=== PATIENT | male | born 1945 | race African-American/Black ===

== ENCOUNTER 2021-05-18 19:17 | Inpatient (IN) | payer BC, SELFPAY ==
--- NOTE | ~2021-05-18 | XR_ITS ---
XR chest 1V portable 06/02/2021 05:44 Indication: Respiratory failure Procedure: AP portable chest Comparison: Comparison to multiple prior studies sequentially, with oldest reviewed study dated 06/2021. Findings: Endotracheal tube tip 3.7 cm above the karol. Left IJ central line tip in the SVC. Stable opacities of the right lower and left mid and lower lung. Stable cardiomediastinal silhouette. No sig nificant effusion or pneumothorax. No acute osseous abnormality. Impression: 1: Stable bilateral opacities, consistent with pneumonia. Reviewed, dictated and finalized at location A. NURSE Impression: 1: Stable bilateral opacities, consistent with pneumonia.
--- NOTE | ~2021-05-18 | XR_ITS ---
EXAMINATION: XR chest 1V portable DATE: 06/08/2021 06:42 INDICATION: Acute respiratory failure TECHNIQUE: COMPARISON: Chest radiograph dated 06/07/2021 FINDINGS: Endotracheal tube tip 1.5 cm above the karol. Dobbhoff type nasoenteric feeding tube with weighted t ip in the proximal jejunum approximately 5 cm beyond the level of the ligament of Treitz. Left qa internship al jugular central venous catheter with distal tip at the superior cavoatrial junction. Persistent opacities in the left mid to lower lung zone. This likely includes a small left pleural ef fusion. Additional unchanged opacities at the medial right lower lung zone.. No pulmonary edema or pn eumothorax. The cardiomediastinal silhouette is normal. IMPRESSION: 1. Unchanged opacities in the left mid to lower and right lower lung zones which could represent or p neumonia or atelectasis, possibly with superimposed small left pleural effusion. Reviewed, dictated and finalized at location A. OCCUPATIONAL THERAPIST IMPRESSION: 1. Unchanged opacities in the left mid to lower and right lower lung zones whic h could represent or pneumonia or atelectasis, possibly with superimposed small left pleural effusion.
--- NOTE | ~2021-05-18 | CT_ITS ---
EXAMINATION: CT diagnostic chest wo con DATE: 05/25/2021 12:57 INDICATION: Pneumonia TECHNIQUE: Computed tomography (CT) of the chest was performed without intravenous contrast. The dose -length product was 201.04 mGy-cm. Automated exposure control and iterative reconstruction technique were employed. COMPARISON: Chest x-ray dated 05/21/2021 FINDINGS: No thoracic lymphadenopathy. There is atherosclerosis of the aorta and coronary arteries. B orderline heart size. No significant pleural or pericardial effusion. The upper abdomen is unremarkab le. There is patchy airspace consolidation involving all lobes, most confluent in the lower lobes, le ft greater than right, compatible with pneumonia. No endobronchial lesions. IMPRESSION: 1. Patchy bilateral airspace disease, compatible with pneumonia. Reviewed, dictated and finalized at location B. PING MACHINE OPERATOR
--- NOTE | ~2021-05-18 | XR_ITS ---
EXAMINATION: XR chest 1V portable DATE: 06/06/2021 05:49 INDICATION: Acute respiratory failure TECHNIQUE: frontal view of the chest was obtained. COMPARISON: Chest radiograph dated 06/05/2021 FINDINGS: Endotracheal tube tip 3.5 cm above the karol. Dobbhoff type nasoenteric feeding tube extends into th e stomach with distal tip near the gastric outlet. Left internal jugular central venous catheter with distal tip near the superior cavoatrial junction. Persistent streaky and patchy airspace opacities in the right lower and left mid and lower lung zones . No pneumothorax or definitive pleural effusion. The cardiomediastinal silhouette is normal. Calcifi ed mediastinal lymph nodes consistent with old granulomatous disease. IMPRESSION: 1. No change in bilateral basilar predominant lung disease consistent with pneumonia, atelectasis or some combination thereof. Reviewed, dictated and finalized at location A. TER AUTOMATIC IMPRESSION: 1. No change in bilateral basilar predominant lung disease consistent with pneu monia, atelectasis or some combination thereof.
--- NOTE | ~2021-05-18 | XR_ITS ---
EXAMINATION: XR chest 1V portable DATE: 06/07/2021 05:49 INDICATION: Acute respiratory failure TECHNIQUE: frontal view of the chest was obtained. COMPARISON: Chest radiograph dated 06/06/2021 FINDINGS: Endotracheal tube tip 3.5 cm above the karol. Dobbhoff type nasoenteric feeding tube with weighted t ip in the proximal jejunum approximately 5 cm beyond the level of the ligament of Treitz. Left graduate intern al jugular central venous catheter with distal tip at the superior cavoatrial junction. Persistent opacities in the bilateral lung zones, left greater than right. No pulmonary edema, pneumo thorax or definitive pleural effusion. The cardiomediastinal silhouette is normal. IMPRESSION: 1. Interval improvement in opacities in the bilateral lower lung zones, left greater than right which could represent pneumonia or atelectasis. Reviewed, dictated and finalized at location A. ER CUTTING OPERATOR IMPRESSION: 1. Interval improvement in opacities in the bilateral lower lung zones, left gr eater than right which could represent pneumonia or atelectasis.
--- NOTE | ~2021-05-18 | XR_ITS ---
EXAMINATION: XR chest 1V portable INDICATION: Acute respiratory failure TECHNIQUE: Portable AP chest at 0501 hours COMPARISON: 06/08/2021 FINDINGS: A left internal jugular central venous catheter ends with its tip at the superior cavoatria l junction. A Dobbhoff feeding tube is seen with its tip ending in the proximal jejunum. Airspace opa cities persist in the left mid and lower lung zones and right lung base with slight improvement. Ther e is no pleural effusion or pneumothorax. The cardiomediastinal silhouette is normal. IMPRESSION: 1. Improved airspace opacities of the left lung and right lung base, consistent with atelectasis vers us pneumonia. Reviewed, dictated and finalized at location A. RING MACHINE OPERATOR AUTOMATIC IMPRESSION: 1. Improved airspace opacities of the left lung and right lung base, consistent with atelectasis versus pneumonia.
--- NOTE | ~2021-05-18 | XR_ITS ---
EXAMINATION: XR chest 1V portable DATE: 06/10/2021 05:29 INDICATION: Acute respiratory failure. TECHNIQUE: A single frontal view of the chest was obtained. COMPARISON: Chest single view 06/09/2021, CT abdomen and pelvis 05/31/2021 FINDINGS: The patient is rotated to his left. There are airspace opacities in right lower lung zone a nd left mid and lower lung zones. No pleural effusion or pneumothorax. The heart size is normal. Calc ified left hilar lymph nodes are consistent with old granulomatous disease. A left internal jugular c entral venous catheter is seen with tip in the superior vena cava. IMPRESSION: 1. Stable airspace opacities in right lower lung zone and left mid and lower lung zones, consistent w ith pneumonia. Reviewed, dictated and finalized at location A. HEEL BUILDER IMPRESSION: 1. Stable airspace opacities in right lower lung zone and left mid and lower eliezer ng zones, consistent with pneumonia.
--- NOTE | ~2021-05-18 | XR_ITS ---
EXAMINATION: XR fl Dobhoff insert/rad w img DATE: 06/06/2021 11:47 INDICATION: Clogged Dobbhoff feeding tube. Placement of a new Dobbhoff feeding tube is requested. TECHNIQUE: A Dobbhoff type feeding tube was advanced into the duodenum utilizing intermittent fluoroscopy. Final image demonstrates the feeding tube in position with the weighted tip at the expected location of th e ligament of Treitz. Positioning within the duodenum was confirmed with injection of 50 mL of Omnipa que-350 contrast. The tube was flushed with 10 mL sterile saline and fixed to the nares with adhesive tape. The previously placed clotted tube was removed. 2 fluoroscopic images were recorded. The amoun t of fluoroscopy time used during this procedure was 6.4 minutes. There were no immediate complicatio ns. FINDINGS/IMPRESSION: Successful fluoroscopy-guided Dobbhoff feeding tube placement with distal tip in the fourth portion o f the duodenum. Reviewed, dictated and finalized at location A. [place] SALES VITAMIN CONSULTANT
--- NOTE | ~2021-05-18 | XR_ITS ---
EXAMINATION: XR chest 1V portable EXAM DATE: 05/28/2021 16:58 INDICATION: SOB CXR COVID. TECHNIQUE: Portable AP frontal chest x-ray was obtained. Comparison is made to prior examination from 05/21/2021. FINDINGS: Moderate amount of ill-defined bilateral airspace disease, appearance consistent with COVID pneumonia. There is no significant interval change. No pneumothorax . Possible small pleural effusio ns. IMPRESSION: Moderate amount of COVID pneumonia unchanged. Reviewed, dictated and finalized at location G. ANALYST REPORT WRITER
--- NOTE | ~2021-05-18 | XR_ITS ---
EXAMINATION: XR chest ET placement DATE: 05/31/2021 12:50 INDICATION: Intubation. TECHNIQUE: A single frontal view of the chest was obtained. COMPARISON: Chest single view 05/31/2021 at 7:[address] abdomen and pelvis 05/31/2021 FINDINGS: The patient is rotated to his left. There are airspace opacities in right mid and lower dang g zones and all left lung zones with a peripheral predominance. No pleural effusion or pneumothorax. The heart size is normal. The endotracheal tube tip is 4.1 cm above the karol. IMPRESSION: 1. Stable multifocal lung disease, left worse than right, consistent with pneumonia. Reviewed, dictated and finalized at location E. LE SAW OPERATOR IMPRESSION: 1. Stable multifocal lung disease, left worse than right, consistent with pneum onia.
--- NOTE | ~2021-05-18 | XR_ITS ---
EXAMINATION: XR chest port-a-cath/central DATE: 06/01/2021 10:31 INDICATION: Central line placement TECHNIQUE: frontal view of the chest was obtained. COMPARISON: Chest radiograph dated 06/01/2021 FINDINGS: Endotracheal tube tip 3.1 cm above the karol. Left internal jugular central venous catheter with dis gamal tip near the superior cavoatrial junction. Persistent opacities throughout the left mid to lower and right lower lung zones without significant interval change consistent with pneumonia. No pleural effusion or pneumothorax. The cardiomediastinal silhouette is normal. IMPRESSION: 1. Unchanged opacities in the right lower and left mid to lower lung zones consistent with pneumonia. Reviewed, dictated and finalized at location A. OUT WORKER IMPRESSION: 1. Unchanged opacities in the right lower and left mid to lower lung zones cons istent with pneumonia.
--- NOTE | ~2021-05-18 | CT_ITS ---
EXAMINATION: CT brain wo con DATE: 05/30/2021 15:37 INDICATION: Mental status change TECHNIQUE: Computed tomography (CT) of the head was performed without intravenous contrast. Sagittal and coronal reconstructions were performed. The mA was adjusted according to patient size. Iterative reconstruction technique was employed. The dose-length product was 605.33 mGy-cm. COMPARISON: head CT dated 05/18/2021 FINDINGS: No acute intracranial hemorrhage, acute infarction or abnormal extra axial fluid collection. Again se en are small old lacunar infarcts at the heads of the bilateral caudate nuclei. Additional unchanged small old infarct at the left cerebellar hemisphere. There is mild to moderate scattered white matter hypoattenuation consistent with chronic small vessel ischemic disease. Symmetric prominence of the sulci and ventricles consistent with mild to moderate age-appropriate diffuse cerebral volume loss. N o mass/mass effect. Mild scattered mucosal thickening the paranasal sinuses. The orbits, paranasal si nuses and mastoid air cells are normal. 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 IMPRESSION: 1. No acute intracranial process. 2. 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 3. Age-related changes including mild to moderate diffuse volume loss and mild to moderate scattered white matter hypoattenuation consistent with chronic small vessel ischemic disease. Reviewed, dictated and finalized at location A. ANICAL FITTER IMPRESSION: 1. No acute intracranial process. 2. 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 3. Age-related changes including mild to moderate diffuse volume loss and mild to moderate scattered white matter hypoattenuation consistent with chronic smal l vessel ischemic disease.
--- NOTE | ~2021-05-18 | XR_ITS ---
EXAMINATION: XR chest 1V portable DATE: 05/31/2021 08:06 INDICATION: Fluid overload. TECHNIQUE: A single frontal view of the chest was obtained. COMPARISON: Chest single view 05/28/2021, chest CT 05/25/2021 FINDINGS: There are airspace opacities in right mid and lower lung zones and all left lung zones. No pleural effusion or pneumothorax. The heart size is normal. IMPRESSION: 1. Stable multifocal lung disease, left worse than right, consistent with pneumonia. Reviewed, dictated and finalized at location E. RATOR HAND IMPRESSION: 1. Stable multifocal lung disease, left worse than right, consistent with pneum onia.
--- NOTE | ~2021-05-18 | XR_ITS ---
EXAMINATION: XR chest 1V portable INDICATION: Choking episode, possible aspiration TECHNIQUE: Portable AP chest at 1749 hours COMPARISON: 05/18/2021 FINDINGS: Left-sided airspace opacities persist without significant change. Right basilar airspace op acities have slightly increased. No definite pleural effusion or pneumothorax is identified. The card iomediastinal silhouette is normal. IMPRESSION: 1. Stable left-sided airspace opacities and mildly increased right basilar airspace opacity, likely p neumonia. Reviewed, dictated and finalized at location F. WARE DESIGN ENGINEER IMPRESSION: 1. Stable left-sided airspace opacities and mildly increased right basilar airs pace opacity, likely pneumonia.
--- NOTE | ~2021-05-18 | XR_ITS ---
EXAMINATION: XR chest 1V INDICATION: Shortness of breath and cough, COVID 19 positive TECHNIQUE: AP view of the chest is obtained. COMPARISON: None available FINDINGS: There are patchy airspace opacities throughout the left lung and in the right lung base. No pleural effusion or pneumothorax is identified. The cardiomediastinal silhouette is normal. IMPRESSION: 1. Airspace opacities throughout the left lung and in the right lung base, likely COVID 19 pneumonia. Reviewed, dictated and finalized at location F. PURSE FRAMER IMPRESSION: 1. Airspace opacities throughout the left lung and in the right lung base, like ly COVID 19 pneumonia.
--- NOTE | ~2021-05-18 | XR_ITS ---
XR fl Dobhoff insert/rad w img INDICATION: Insertion of Dobbhoff tube TECHNIQUE: Fluoroscopy performed for Dobbhoff tube placement . Fluoroscopy time of 4 minutes. One flu oroscopic image. COMPARISON: No prior studies for comparison. FINDINGS: Dobbhoff tube tip in the stomach. Visualized bowel gas pattern is nonspecific. IMPRESSION: 1: Dobbhoff tube tip in the stomach. Reviewed, dictated and finalized at location A. IL SUPPORT SPECIALIST
--- NOTE | ~2021-05-18 | CT_ITS ---
EXAMINATION: CT abdomen pelvis wo con DATE: 05/31/2021 09:09 INDICATION: Possible bleeding TECHNIQUE: Computed tomography (CT) of the abdomen and pelvis was performed without intravenous contr ast. Automated exposure control and iterative reconstruction technique were employed. The dose-length product was 469.34 mGy-cm. COMPARISON: None FINDINGS: Patchy airspace disease in the bilateral lower lobes. Heart size is normal. No pericardial or pleural effusion. Liver, gallbladder, spleen, pancreas, bilateral adrenal glands and kidneys are normal. Lar ge amount of stool throughout the colon with 7 cm ball of stool at the rectum consistent with constip ation and possible fecal impaction. Normal appendix. Multiple gas and fluid-filled but not frankly di lated loops of small bowel without a discrete transition point to suggest obstruction which suggests an ileus. Patel catheter within the decompressed bladder. No free intraperitoneal gas or fluid. No ev ident retroperitoneal or body wall hematomas. No pathologically enlarged abdominal or pelvic lymphade nopathy. Prominent Schmorl's nodes at the superior endplate of L2 and at both sides of the L3-L4 disc space. Mild lumbar levocurvature. Mild to moderate thoracolumbar spondylosis. Left total hip arthrop lasty with a fixation screw in the acetabular component extending beyond the medial wall of the ileum into the left iliac is muscle. IMPRESSION: 1. Patchy airspace disease in the bilateral lower lobes which could represent aspiration, pneumonia o r pulmonary edema. 2. Large amount of stool throughout the colon was 7 cm ball of stool at rectum consistent with consti pation and fecal impaction. 3. Multiple gas and fluid-filled loops of small bowel which are not frankly dilated and with no discr ete transition point which would favor an ileus over obstruction. Reviewed, dictated and finalized at location A. FOLLOWER IMPRESSION: 1. Patchy airspace disease in the bilateral lower lobes which could represent a spiration, pneumonia or pulmonary edema. 2. Large amount of stool throughout the colon was 7 cm ball of stool at rectum consistent with constipation and fecal impaction. 3. Multiple gas and fluid-filled loops of small bowel which are not frankly dil ated and with no discrete transition point which would favor an ileus over obst ruction.
--- NOTE | ~2021-05-18 | XR_ITS ---
EXAMINATION: XR chest 1V portable DATE: 06/05/2021 05:44 INDICATION: Respiratory failure TECHNIQUE: frontal view of the chest was obtained. COMPARISON: Chest radiograph dated 06/04/2021 FINDINGS: Dobbhoff type nasoenteric feeding tube extends into the stomach with distal tip collimated beyond the inferior margin of the [id number]. Left internal jugular central venous catheter with distal tip at the caudal superior vena cava. Slight improvement in the bilateral lung disease with residual opacities at the right lung base and l eft mid to lower lung zone. No pleural effusion or pneumothorax. The cardiomediastinal silhouette is normal. Calcified mediastinal lymph nodes consistent with old granulomatous disease. IMPRESSION: 1. Decreasing bilateral lung disease consistent with improving pneumonia. Reviewed, dictated and finalized at location A. KER DUMP GROUNDS
--- NOTE | ~2021-05-18 | XR_ITS ---
XR chest 1V portable 06/03/2021 06:14 Indication: Respiratory failure Procedure: AP portable chest Comparison: Comparison to multiple prior studies sequentially, with oldest reviewed study dated 06/2021. Findings: There is an endotracheal tube tip 3 cm above the karol. Feeding tube in the stomach. Centr al line tip near the cavoatrial junction. There is patchy bilateral airspace disease. Small left pleu ral effusion. No pneumothorax. No acute osseous abnormality. Impression: 1: Stable patchy bilateral airspace disease, consistent with pneumonia. Reviewed, dictated and finalized at location A. ERMAN Impression: 1: Stable patchy bilateral airspace disease, consistent with pneumonia.
--- NOTE | ~2021-05-18 | XR_ITS ---
EXAMINATION: XR chest 1V portable DATE: 06/04/2021 06:25 INDICATION: Respiratory failure TECHNIQUE: frontal view of the chest was obtained. COMPARISON: Chest radiograph dated 06/03/2021 FINDINGS: Endotracheal tube tip 3.2 cm above the karol. Weighted tip of a Dobbhoff type nasoenteric feeding tu be in the body of the stomach. Left internal jugular central venous catheter with distal tip near the superior cavoatrial junction. No significant change in diffuse airspace opacities throughout the left lung sparing the apex and mor e subtly scattered in the right lung. No pneumothorax. Possible small left pleural effusion. Heart si ze is normal. IMPRESSION: 1. Stable patchy bilateral lung disease, left greater than right consistent with pneumonia. Reviewed, dictated and finalized at location A. NELL OPERATOR IMPRESSION: 1. Stable patchy bilateral lung disease, left greater than right consistent wit h pneumonia.
--- NOTE | ~2021-05-18 | XR_ITS ---
EXAMINATION: XR chest 1V portable DATE: 06/01/2021 06:11 INDICATION: Respiratory failure. TECHNIQUE: A single frontal view of the chest was obtained. COMPARISON: Chest single view 05/31/2021, CT abdomen and pelvis 05/31/2021 FINDINGS: There are airspace opacities in right lower lung zone and all left lung zones. No pleural e ffusion or pneumothorax. The heart size is normal. The endotracheal tube tip is 2.8 cm above the joe na. IMPRESSION: 1. Stable airspace opacities in right lower lung zone and in all left lung zones, consistent with pne umonia. Reviewed, dictated and finalized at location E. E GROWER IMPRESSION: 1. Stable airspace opacities in right lower lung zone and in all left lung zone s, consistent with pneumonia.
--- NOTE | ~2021-05-18 | CT_ITS ---
EXAMINATION: CT brain wo con INDICATION: Altered mental status COMPARISON: None TECHNIQUE: Standard unenhanced head CT. The dose-length product (DLP) was 605.33 mGy-cm. The mA was a djusted according to patient size. Iterative reconstruction technique was employed. FINDINGS: There is no acute intraparenchymal hemorrhage. No evidence of mass lesion. No evidence of a cute infarction. 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 There is mild periventricular and subcortical hypodensity probably related to small vessel ischemic disease. There is mild prominence of the sulci and ventricles related to cerebral atrophy. Intracran ial calcified cerebral atherosclerosis is noted. There are no extra-axial collections. There is no ma ss effect or midline shift. The orbits and soft tissues are unremarkable. There is mild mucosal thick ening of the paranasal sinuses. There is fibrous union of the anterior and posterior C1 ring. IMPRESSION: 1. Areas of prior infarction without acute intracranial abnormality. 2. Age related findings. Reviewed, dictated and finalized at location F. ER TRIMMER
--- NOTE | ~2021-05-18 | XR_ITS ---
EXAMINATION: XR fl Dobhoff insert/rad w img DATE: 06/11/2021 14:31 INDICATION: Acute respiratory failure. TECHNIQUE: I placed a nasoenteric tube under fluoroscopic guidance. The number of images was 1. Fluor oscopy exposure time was 1.2 minutes. COMPARISON: None. FINDINGS: The nasoenteric tube tip is in the stomach. IMPRESSION: 1. Fluoroscopy guided nasoenteric tube placement with tip in the stomach. Reviewed, dictated and finalized at location A. F TECHNICIAN HELPER
--- NOTE | ~2021-05-18 | XR_ITS ---
EXAMINATION: XR abdomen NG/feed tube insert DATE: 06/11/2021 18:30 INDICATION: Nasogastric tube placement TECHNIQUE: A supine view of the abdomen and lower chest was obtained for evaluation of feeding tube placement. COMPARISON: 06/11/2021 at 2:26 PM FINDINGS: The Dobbhoff type enteric feeding tube is no longer visualized in the abdomen or mid and lower chest. No dilated loops of gas-filled bowel to suggest obstruction. Opacities at the bilateral lung bases w hich could represent atelectasis, pneumonia or pulmonary edema. Heart size is normal. Left total hip arthroplasty. IMPRESSION: 1. No feeding tube visualized in the abdomen or mid to lower chest. Reviewed, dictated and finalized at location A. S NEGOTIATOR
--- NOTE | ~2021-05-18 | XR_ITS ---
EXAMINATION: XR chest 1V portable EXAM DATE: 05/21/2021 06:05 INDICATION: Pneumonia. TECHNIQUE: Portable AP frontal chest x-ray was obtained. Comparison is made to prior examination from 05/20/2021, 05/18. FINDINGS: Moderate amount of left greater than right ill-defined acute airspace disease, pneumonia an d/or edema. Mild progression compared to prior 2 studies. Cardiomediastinal silhouette is normal. The re is no pneumothorax suspected. There are no pleural effusions. There are mild bony degenerative paul nges. IMPRESSION: 1. Moderate bilateral pneumonia or edema, mild progression. Reviewed, dictated and finalized at location A. GLUE MACHINE TENDER
--- NOTE | ~2021-05-18 | XR_ITS ---
EXAMINATION: XR fl Dobhoff insert/rad w img DATE: 06/11/2021 11:42 INDICATION: Respiratory failure. TECHNIQUE: I inserted a nasoenteric tube under fluoroscopic guidance. One image was obtained. The flu oroscopy exposure time was 0.6 minutes. COMPARISON: None. FINDINGS: The fluoroscopy image demonstrates the nasoenteric tube tip in the stomach. IMPRESSION: 1. Fluoroscopy guided nasoenteric tube placement with tip in the stomach. Reviewed, dictated and finalized at location A. URCE TEACHER
[2021-05-18 19:16] VITALS: BP 175/70; PULSE 93; RESP 22; TEMP 36.3; O2SAT 98
--- NOTE | 2021-05-18 19:30 | ECG_ITS ---
Measurements Intervals [place] Rate: 98 P: KS: 0 QRS: 26 QRSD: 82 T: 53 QT: 378 QTc: 485 Interpretive Statements WANDERING PACEMAKER ATRIAL PREMATURE COMPLEXES VOLTAGE CRITERIA FOR LVH BASELINE ARTIFACT- I, III, AVR, AVL, AVF, V2 ABNORMAL ECG Electronically Signed On 05-18-2021 20:06:48 APPEALS REVIEWER VETERAN by Winston Montemayor D.O.
[2021-05-18 19:31] VITALS: O2SAT 96
--- NOTE | 2021-05-18 19:52 | ED.SOB ---
HPI - SOB/Dyspnea General Chief Complaint: Shortness of Breath/Dyspnea Stated Complaint: COVID + WITH PNA, DIALYSIS SOB 84 [facility]LOW Time Seen by Provider: 05/18/21 19:25 Source: RN notes reviewed History of Present Illness HPI Narrative: Patient presents emergency department from dialysis clinic for shortness of breath.. Per EMS the patient had O2 saturations of 86 to 89% on room air history of history of dementia and is poor historian the patient is COVID-positive states he does not normally wear oxygen during the day patient had just been at [facility] and had signed out AGAINST MEDICAL ADVICE patient currently denies any chest pain abdominal pain nausea or vomiting states he is normal normal dialysis patient. Per EMS the patient received his full dialysis treatment today Related Data Home Medications Medication Instructions Recorded Confirmed allopurinol 100 mg PO HS 05/18/21 amlodipine 5 mg PO DAILY 05/18/21 apixaban [Eliquis] 2.5 mg PO BID 05/18/21 atorvastatin 20 mg PO HS 05/18/21 furosemide 80 mg PO BID 05/18/21 hydrocodone-acetaminophen 1 tablet PO Q6H PRN 05/18/21 lisinopril 5 mg PO DAILY 05/18/21 ropinirole 0.5 mg PO HS 05/18/21 sevelamer carbonate 800 mg PO TID 05/18/21 tamsulosin 0.4 mg PO HS 05/18/21 Allergies Allergy/AdvReac Type Severity Reaction Status Date / Time No Known Allergies Allergy Verified 05/18/21 21:05 Review of Systems Review of Systems: Gen.: Denies fevers or chills positive COVID ENT: Denies congestion Respiratory: See HPI CV: Denies chest pain or palpitations GI: Denies abdominal pain nausea, emesis or diarrhea Musculoskeletal: Denies back pain or muscle pain Neuro: Denies numbness, tingling, weakness or focal weakness Skin: Denies rash Except as documented, all other systems reviewed and negative [facility] Past Medical History Medical History (Updated 05/18/21 @ 21:29 by Delmer Moody DO) Chronic renal failure Social History Social History (Updated 05/18/21 @ 21:27 by Delmer Moody DO) Smoking status: Never smoker Exam Narrative: APPEARANCE: No acute distress, nontoxic, resting in bed EYES: EOMI HEENT: Normocephalic, atraumatic, OMM RESPIRATORY: No respiratory distress coarse breath sounds at the bilateral lung dooley CARDIOVASCULAR: Irregular irregular without murmurs rubs or gallops. ABDOMINAL: Soft, nontender, nondistended, no rebound or guarding MUSCULOSKELETAl: Moves all extremities. No clubbing, cyanosis or edema. NEURO: Awake and alert. Following commands, speech normal, no focal deficits SKIN:: Warm, dry. No rashes lesions or abrasions PSYCHIATRIC: Normal affect/mood, Course Course Emergency Course: Patient's power of managing attorney is present as well as a obtain records from [facility] The patient gone to [facility] on 15 May at that time he had been found to have COVID-19 with pneumonia he received initial dose of Rocephin and azithromycin but did not receive any further of these medications. At that time the patient need to be admitted he cannot get dialysis at [facility] they initially tried to transport the patient to [facility] however they did not have beds and the patient was accepted at [facility] power of managing attorney did not want the patient to be transferred to [place] and ultimately had signed the patient out of the emergency department today where he is being held to take him to dialysis at dialysis the patient become short of breath and came to the ER. Patient does wear oxygen as needed in the evenings but not during the day he did have a positive COVID test at [facility] Per records the patient last received his Cardizem last night there is no records of him receiving his apixaban which I will give here he did receive Decadron 2 days ago he did not receive any further antibiotics since May [address] Javed presentation work-up agrees with admission request patient receive his Cardizem and a
[2021-05-18 20:12] LABS: Basophils Percent Auto 0.2 % (0.2-1.2); Eosinophils Percent Auto 0.1 % (0-4.4); Hematocrit 32.2 % (42.0-52.0); Hemoglobin 10.3 g/dL (14.0-18.0); Immature Granulocyte Absolute 0.68 K/mm3 (0.00-0.031); Immature Granulocyte Percent A 4.5 % (0-0.5); Lymphocytes Absolute Auto 0.65 K/mm3 (0.9-3.2); Lymphocytes Percent Auto 4.3 % (18.3-44.2); Mean Corpuscular Hemoglobin 32.5 pg (26-34); Mean Corpuscular Volume 101.6 fl (80-100); Mean Platelet Volume 9.3 fl (7.4-10.4); Monocytes Absolute Auto 0.5 K/mm3 (0.1-0.6); Neutrophils Absolute Auto 13.2 K/mm3 (1.3-6.7); Neutrophils Percent Auto 87.9 % (45.5-73.1); Platelet Count Result 253 k/mm3 (150-375); Red Blood Count 3.17 M/mm3 (4.6-6.20)
[2021-05-18 20:22] LABS: INR 1.1; Partial Thromboplastin Time 29.1 SECONDS (22.3-36.8); Prothrombin Time 14.5 Seconds (11.1-14.7)
[2021-05-18 20:24] LABS: Alanine Aminotransferase 20 U/L (4-50); Albumin Level 4.3 g/dL (3.5-5.1); Alkaline Phosphatase 70 U/L (38-126); Anion Gap 13 mmol/L (8-16); Aspartate Amino Transferase 52 U/L (17-59); Bilirubin,Total 0.9 mg/dL (0.2-1.3); Blood Urea Nitrogen 36 mg/dL (9-20); Calcium 9.3 mg/dL (8.4-10.2); Carbon Dioxide 34 mmol/L (22-30); Chloride 94 mmol/L (98-107); Estimated CRCL calculation 10 ml/min; Estimated Glomerular Filt Rate 13; Glucose 114 mg/dL (65-110); Sodium 141 mmol/L (137-145)
[2021-05-18 20:27] LABS: Ovalocytes 1+ (NORMAL); Platelet Estimate Adequate (Adequate)
[2021-05-18 20:47] VITALS: BP 185/64; PULSE 87; RESP 18; O2SAT 97
[2021-05-18 20:48] LABS: CRP 23.9 mg/dL (<1.0); Lactate Dehydrogenase 1006 U/L (313-618)
--- NOTE | 2021-05-18 20:59 | PM.IMHP ---
H&P: HPI History of Present Illness Date/Time: 05/18/21 20:59 Chief Complaint: Shortness of breath Narrative: This is a 75-year-old male with past medical history significant for end-stage renal disease on hemodialysis, hypertension, dementia, on chronic anticoagulation. Patient was brought to the emergency room from hemodialysis clinic due to shortness of breath. Patient is unable to give any history. In emergency room preliminary workup was significant for chest x-ray significant for diffuse bilateral lung infiltrates. Patient was saturating in the mid 80's I was placed on supplemental oxygen. Tested positive for COVID-19. History has been obtained upon reviewing medical records and discussion with emergency room doctor. Decision has been made to admit the patient for further evaluation, management and treatment. Review of Systems Review of Systems: ROS unobtainable: Yes unobtainable due to mental status (Delirious) PMFSH Past Medical History Medical History (Updated 05/19/21 @ 02:04 by Lew Estrada MD) Chronic renal failure Social History Social History (Updated 05/18/21 @ 21:27 by Delmer Moody DO) Smoking status: Never smoker Meds Home Medications and Allergies Home Medications Medication Instructions Recorded Confirmed Type allopurinol 100 mg PO HS 05/18/21 History amlodipine 5 mg PO DAILY 05/18/21 History apixaban [Eliquis] 2.5 mg PO BID 05/18/21 History atorvastatin 20 mg PO HS 05/18/21 History furosemide 80 mg PO BID 05/18/21 History hydrocodone-acetaminophen 1 tablet PO Q6H PRN 05/18/21 History lisinopril 5 mg PO DAILY 05/18/21 History ropinirole 0.5 mg PO HS 05/18/21 History sevelamer carbonate 800 mg PO TID 05/18/21 History tamsulosin 0.4 mg PO HS 05/18/21 History Allergies Allergy/AdvReac Type Severity Reaction Status Date / Time No Known Allergies Allergy Verified 05/18/21 21:05 Vital Signs Vital Signs - 24 hr 05/18/21 19:16 05/18/21 19:31 05/18/21 20:47 Temperature 97.4 F L Pulse Rate 93 87 Respiratory Rate 22 H 18 Blood Pressure 175/70 H 185/64 H Pulse Oximetry 98 96 97 Exam Narrative: Laying in gurney Const: General: comfortable, no acute distress, well developed, alert, awake, ill appearing chronically and other (Delirious) Nutritional Appearance: average body habitus Orientation/consciousness: patient oriented x3 HENMT: Head: normal to inspection, normocephalic and atraumatic Ears: hearing grossly normal bilaterally General nose exam: Normal external nose present Face and sinus: normal facial exam Mouth: Yes Normal oral and palatal mucosa present Eyes: General: appearance normal, both eyes and all related structures Alignment and Position: alignment normal Sclera: sclerae normal Pupils: Equal, round and reactive pupils present EOM: EOMs intact bilaterally Neck: Neck: normal visual inspection, full ROM, no lymphadenopathy, supple and no JVD Thyroid: thyroid normal Lymphatic: no lymphadenopathy noted Resp: Effort & Inspection: normal respiratory effort and able to speak in complete sentences Auscultation: clear to auscultation bilaterally, no crackles, no rales, no rhonchi and no wheezes Cardio: Jugular venous distension: no JVD Rate: regular rate Rhythm: regular rhythm Heart sounds: S1 normal heart sound present and S2 normal heart sound present GI: Inspection: normal to inspection GI Palp: Yes Soft to palpation, No Tenderness to palpation present (GI), No Guarding due to palpation present (GI), Yes No hepatosplenomegaly present and No Rebound tenderness present : General: Yes deferred Skin: Rashes: no rashes Wounds: no wounds Neuro: General: oriented to person and CN's II-XI intact bilaterally Cranial nerves: Yes CN's II-XII intact bilaterally and Yes Equal, round and reactive pupils present Cognition (Neuro): abnormal cognition (Delirious) Speech: normal speech Gait exam (Neuro): Unable to assess gait Motor exam (neuro
[2021-05-18] MEDS: ALBUTEROL SULFATE (*SP) INHALER 1 PUFF (21:33)
[2021-05-18] MEDS: APIXABAN 2.5 MG TABLET PO (21:34)
[2021-05-18 21:35] VITALS: BP 181/94; PULSE 97; RESP 19; O2SAT 99
[2021-05-18 22:59] VITALS: BP 176/77; PULSE 104; RESP 20; O2SAT 96
[2021-05-18 23:45] VITALS: BP 185/69; PULSE 87; RESP 19; TEMP 36.8; O2SAT 98
[2021-05-19] VITALS (9 sets, daily range): BP systolic 121–142; BP diastolic 49–68; PULSE 61–93; RESP 14–20; TEMP 36–36.6; O2SAT 95–100; BMI 25.1
--- NOTE | 2021-05-19 03:24 | PC.NURSE ---
This patient, Jules Mitchell, was admitted to [facility] Room 331-01. Patient/family oriented to hospital policies and general routines including ID bracelet, bed and alarms, visiting hours, pain management, procedures, bathroom and other care routines, personal items, smoking policy, room service/diet, and visiting hours. Information on how to activate the Rapid Response Team has been discussed. Patient/Family are encouraged to report perceived risks to care and to ask questions if they do not understand what they are told or what they should do.
[2021-05-19 06:48] LABS: Basophils Percent Auto 0.2 % (0.2-1.2); Hematocrit 28.1 % (42.0-52.0); Hemoglobin 9.1 g/dL (14.0-18.0); Lymphocytes Absolute Auto 0.51 K/mm3 (0.9-3.2); Lymphocytes Percent Auto 5.1 % (18.3-44.2); Mean Corpuscular HGB Conc 32.4 g/dl (32-36); Mean Corpuscular Hemoglobin 32.7 pg (26-34); Mean Corpuscular Volume 101.1 fl (80-100); Mean Platelet Volume 9.7 fl (7.4-10.4); Monocytes Absolute Auto 0.2 K/mm3 (0.1-0.6); Neutrophils Absolute Auto 8.9 K/mm3 (1.3-6.7); Neutrophils Percent Auto 88.7 % (45.5-73.1); Platelet Count Result 231 k/mm3 (150-375); Red Blood Count 2.78 M/mm3 (4.6-6.20); Red Cell Distribution Width 14.2 % (11.5-14.5)
[2021-05-19 07:28] LABS: Alanine Aminotransferase 17 U/L (4-50); Albumin Level 3.5 g/dL (3.5-5.1); Alkaline Phosphatase 50 U/L (38-126); Anion Gap 10 mmol/L (8-16); Aspartate Amino Transferase 36 U/L (17-59); Bilirubin,Total 0.7 mg/dL (0.2-1.3); Blood Urea Nitrogen 51 mg/dL (9-20); Calcium 8.3 mg/dL (8.4-10.2); Carbon Dioxide 30 mmol/L (22-30); Chloride 94 mmol/L (98-107); Estimated CRCL calculation 8 ml/min; Estimated Glomerular Filt Rate 12; Glucose 208 mg/dL (65-110); Potassium 4.5 mmol/L (3.4-5.0); Sodium 134 mmol/L (137-145)
[2021-05-19] MEDS: amLODIPine BESYLATE 5 MG TABLET PO (08:14)
[2021-05-19] MEDS: FUROSEMIDE 80 MG TABLET PO ×2 (08:14→16:02)
[2021-05-19] MEDS: SEVELAMER CARBONATE 800 MG TABLET PO ×3 (08:14→16:02)
[2021-05-19] MEDS: APIXABAN 2.5 MG TABLET PO ×2 (08:14→16:02)
[2021-05-19] MEDS: lisinopriL 5 MG TABLET PO (08:14)
[2021-05-19] MEDS: ALBUTEROL SULFATE (*SP) AEROSOL 1 PUFF 2 PUFF INHALATION ×3 (08:56→21:36)
--- NOTE | 2021-05-19 11:25 | PM.IMPN ---
Progress Note: A&P Assessment and Plan (1) Acute respiratory failure with hypoxia: Code(s): J96.01 - Acute respiratory failure with hypoxia Status: Acute Assessment and Plan: Likely secondary to pneumonia Patient placed on supplemental oxygen Continuous pulse ox Trend give oxygen saturation 94% 05/19/2021 Interval history: patient with shortness of breath multifactorial with a healthcare associated pneumonia being treated with cefepime, vancomycin and azithromycin, as well as patient is positive for COVID patient is being treated with dexamethasone, patient remains somnolent unable to provide detailed review of symptom, will continue present management, will have a PT OT evaluate the patient further recommendation to follow. (2) Multilobar lung infiltrate: Code(s): R91.8 - Other nonspecific abnormal finding of lung field Status: Acute Assessment and Plan: Started on cefepime and vanco and Zithromax as patient has been recently to the hospital as well as has undergone hemodialysis. Blood cultures in progress (3) Pneumonia due to COVID-19 virus: Code(s): U07.1 - COVID-19; J12.82 - Pneumonia due to coronavirus disease 2018 Status: Acute Assessment and Plan: Supportive care (4) End-stage renal disease on hemodialysis: Code(s): N18.6 - End stage renal disease; Z99.2 - Dependence on renal dialysis Status: Acute Assessment and Plan: Continue hemodialysis as needed Nephrology consult Subjective Date/time seen: 05/19/21 11:25 HPI: This is a 75-year-old male with past medical history significant for end-stage renal disease on hemodialysis, hypertension, dementia, on chronic anticoagulation. Patient was brought to the emergency room from hemodialysis clinic due to shortness of breath. Patient is unable to give any history. In emergency room preliminary workup was significant for chest x-ray significant for diffuse bilateral lung infiltrates. Patient was saturating in the mid 80's I was placed on supplemental oxygen. Tested positive for COVID-19. History has been obtained upon reviewing medical records and discussion with emergency room doctor. Decision has been made to admit the patient for further evaluation, management and treatment. 05/19/2021 Interval history: patient with shortness of breath multifactorial with a healthcare associated pneumonia being treated with cefepime, vancomycin and azithromycin, as well as patient is positive for COVID patient is being treated with dexamethasone, patient remains somnolent unable to provide detailed review of symptom, will continue present management, will have a PT OT evaluate the patient further recommendation to follow. Review of Systems Review of Systems: ROS unobtainable: Yes unobtainable due to mental status (Delirious) Exam Narrative: Patient is comfortable, NAD, appears chronically ill HEENT: eyes are clear and none icteric LUNGS: normal respiratory effort ABD: not distended Lower extremities: no edema SKIN: nonjaundiced Neuro: grossly intact. Objective Data Vital Signs Vital Signs: Vital Signs - 24 hr 05/18/21 19:16 05/18/21 19:31 05/18/21 20:47 Temperature 97.4 F L Pulse Rate 93 87 Respiratory Rate 22 H 18 Blood Pressure 175/70 H 185/64 H Pulse Oximetry 98 96 97 05/18/21 21:35 05/18/21 22:59 05/18/21 23:45 Temperature 98.3 F Pulse Rate 97 104 H 87 Respiratory Rate 19 20 19 Blood Pressure 181/94 H 176/77 H 185/69 H Pulse Oximetry 99 96 98 05/19/21 00:00 05/19/21 04:00 05/19/21 05:18 Temperature 97.1 F L Pulse Rate 93 86 Respiratory Rate 20 Blood Pressure 142/68 H Pulse Oximetry 100 100 05/19/21 08:00 Temperature 96.8 F L Pulse Rate 62 Respiratory Rate 16 Blood Pressure 135/49 L Pulse Oximetry 99 Intake/Output Intake/Output: Intake & Output 05/16/21 05/17/21 05/18/21 05/19/21 23:59 23:59 23:59 23:59 Intake Total 790 Balance 790
--- NOTE | 2021-05-19 12:53 | PM.CNNEP ---
Assessment and Plan Assessment and plan (1) End stage renal disease: Code(s): N18.6 - End stage renal disease Status: Chronic Assessment and Plan: plan next HD on Friday follow electrolytes, volume status, and clearance (2) Acute respiratory failure with hypoxia: Code(s): J96.01 - Acute respiratory failure with hypoxia Status: Acute Assessment and Plan: due to COVID-19 noted to be hypoxic on admission supplemental oxygen PRN follow respiratory status (3) Pneumonia due to COVID-19 virus: Code(s): U07.1 - COVID-19; J12.82 - Pneumonia due to coronavirus disease 2019 Status: Acute Assessment and Plan: noted positive testing at [facility] consider remdesivir and steroids since hypoxic follow inflammatory markers (4) Hypertension: Code(s): I10 - Essential (primary) hypertension Status: Chronic Assessment and Plan: reasonable control at this time follow trend of hemodynamics (5) Anemia: Code(s): D64.9 - Anemia, unspecified Status: Chronic Assessment and Plan: due to ESRD Epogen with HD follow trend of H/H Will continue to follow. History of Present Illness Reason for Consult Consult date: 05/19/21 Reason for consult: end stage renal disease Chief Complaint Chief complaint: acute respiratory failure with hypoxia, COVID-19, History of Present Illness Narrative: Most of the information I have obtained is review of the electronic medical record as well as discussion with the ER physician upon his evaluation in the emergency room as the patient has dementia and is unable to provide much history at this time. The patient is a 75-year-old male with a past medical history as outlined below who presented to [facility] Emergency room from his outpatient dialysis clinic for further evaluation of shortness of breath. The patient was recently seen at [facility] Emergency room for evaluation of shortness of breath as well. He apparently tested positive for COVID-19 and as it they currently do not have dialysis capabilities at this time, he was tentatively scheduled to be transferred to [place], [place] for hospitalization related to his COVID-19 infection/pneumonia. However, his power of civil litigation attorney did not like this plan and signed him out against medical advice and took him to his outpatient dialysis clinic for a treatment on the day of admission. He successfully completed his dialysis treatment but then he was noted be hypoxic by the nursing staff there and he was subsequently transferred to [facility] ER for evaluation of this issue. Workup and evaluation in the emergency room demonstrated the patient to be hemodynamically stable (he was relatively hypotensive but this apparently is his baseline) but his O2 saturations were 80% on room air which improved with addition of supplemental oxygen. The patient himself did not report or complain of any shortness of breath or respiratory distress but given his dementia and is difficult to assess if he really had any symptoms. Routine blood test demonstrated labs consistent with his known history of end-stage renal disease. Given his hypoxia in association with his known COVID-19 positivity, he was admitted the hospital for further evaluation and therapy. Since his admission, he appears in no apparent distress. He is requiring supplemental oxygen to maintain his oxygen saturations but he does not complain of any respiratory/ breathing issues. Renal consultation was requested due to his end-stage renal disease. I am not entirely sure who the patient's professor of art is or where he receives dialysis other than the fact that he is on a Friday, Friday, Friday dialysis schedule. As already mentioned above, he did receive his full dialysis treatment prior to his transfer to the emergency room on the day of admission. I suspect he goes to a dialys
[2021-05-19] MEDS: rOPINIRole HCL 0.5 MG TABLET PO (21:11)
[2021-05-19] MEDS: TAMSULOSIN HCL 0.4 MG CAPSULE PO (21:11)
[2021-05-19] MEDS: allopurinoL 100 MG TABLET PO (21:11)
[2021-05-19] MEDS: ATORVASTATIN 20 MG TABLET PO (21:11)
[2021-05-20] VITALS (12 sets, daily range): BP systolic 117–131; BP diastolic 54–60; PULSE 58–73; RESP 16; TEMP 36–36.4; O2SAT 92–98
[2021-05-20] MEDS: ALBUTEROL SULFATE (*SP) AEROSOL 1 PUFF 2 PUFF INHALATION ×4 (03:02→20:40)
[2021-05-20] MEDS: amLODIPine BESYLATE 5 MG TABLET PO (08:51)
[2021-05-20] MEDS: FUROSEMIDE 80 MG TABLET PO ×2 (08:51→17:16)
[2021-05-20] MEDS: lisinopriL 5 MG TABLET PO (08:51)
[2021-05-20] MEDS: APIXABAN 2.5 MG TABLET PO ×2 (08:51→17:15)
[2021-05-20] MEDS: SEVELAMER CARBONATE 800 MG TABLET PO ×3 (08:51→17:15)
--- NOTE | 2021-05-20 10:21 | PCRCNOTE ---
Window of time for administration has passed. See next scheduled administration.
--- NOTE | 2021-05-20 12:16 | PM.IMPN ---
Progress Note: A&P Assessment and Plan (1) Acute respiratory failure with hypoxia: Code(s): J96.01 - Acute respiratory failure with hypoxia Status: Acute Assessment and Plan: Likely secondary to pneumonia Patient placed on supplemental oxygen Continuous pulse ox Trend give oxygen saturation 94% 05/19/2021 Interval history: patient with shortness of breath multifactorial with a healthcare associated pneumonia being treated with cefepime, vancomycin and azithromycin, as well as patient is positive for COVID patient is being treated with dexamethasone, patient remains somnolent unable to provide detailed review of symptom, will continue present management, will have a PT OT evaluate the patient further recommendation to follow. 05/20/2021 Interval history: patient with shortness of breath multifactorial with a healthcare associated pneumonia being treated with cefepime, vancomycin and azithromycin, repeat chest x-ray tomorrow, as well as patient is positive for COVID patient is being treated with dexamethasone 06/07, there was a concern of dysphagia as patient was coughing, had a bedside swallow study and patient passed, will continue present management, will have a PT OT evaluate the patient further recommendation to follow. (2) Multilobar lung infiltrate: Code(s): R91.8 - Other nonspecific abnormal finding of lung field Status: Acute Assessment and Plan: Started on cefepime and vanco and Zithromax as patient has been recently to the hospital as well as has undergone hemodialysis. Blood cultures in progress (3) Pneumonia due to COVID-19 virus: Code(s): U07.1 - COVID-19; J12.82 - Pneumonia due to coronavirus disease 2019 Status: Acute Assessment and Plan: Supportive care (4) End-stage renal disease on hemodialysis: Code(s): N18.6 - End stage renal disease; Z99.2 - Dependence on renal dialysis Status: Acute Assessment and Plan: Continue hemodialysis as needed Nephrology consult Subjective Date/time seen: 05/20/21 12:16 05/19/2021 Interval history: patient with shortness of breath multifactorial with a healthcare associated pneumonia being treated with cefepime, vancomycin and azithromycin, as well as patient is positive for COVID patient is being treated with dexamethasone, patient remains somnolent unable to provide detailed review of symptom, will continue present management, will have a PT OT evaluate the patient further recommendation to follow. 05/20/2021 Interval history: patient with shortness of breath multifactorial with a healthcare associated pneumonia being treated with cefepime, vancomycin and azithromycin, repeat chest x-ray tomorrow, as well as patient is positive for COVID patient is being treated with dexamethasone 06/07, there was a concern of dysphagia as patient was coughing, had a bedside swallow study and patient passed, will continue present management, will have a PT OT evaluate the patient further recommendation to follow. Review of Systems Review of Systems: ROS unobtainable: Yes unobtainable due to mental status (Delirious) Exam Narrative: Patient is comfortable, NAD, appears chronically ill HEENT: eyes are clear and none icteric LUNGS: normal respiratory effort ABD: not distended Lower extremities: no edema SKIN: nonjaundiced Neuro: grossly intact. Objective Data Vital Signs Vital Signs: Vital Signs - 24 hr 05/19/21 16:00 05/19/21 18:00 05/19/21 20:00 Temperature 97.1 F L 97.8 F Pulse Rate 66 68 63 Respiratory Rate 14 16 Blood Pressure 121/50 L 137/55 L Pulse Oximetry 96 98 05/19/21 21:40 05/20/21 00:00 05/20/21 04:00 Temperature 96.8 F L 97.1 F L Pulse Rate 60 62 Respiratory Rate 16 16 Blood Pressure 127/54 L 122/60 Pulse Oximetry 95 98 96 05/20/21 08:00 05/20/21 09:00 05/20/21 12:00 Temperature 97.1 F L Pulse Rate 64 64 72 Respiratory Rate 16 Blood Pressure 120/57
--- NOTE | 2021-05-20 13:16 | PM.PNNEP ---
Progress Note: A&P Assessment and Plan (1) End stage renal disease: Code(s): N18.6 - End stage renal disease Status: Chronic Assessment and Plan: plan HD tomorrow and continue M/W/F schedule follow electrolytes, volume status, and clearance (2) Acute respiratory failure with hypoxia: Code(s): J96.01 - Acute respiratory failure with hypoxia Status: Acute Assessment and Plan: due to COVID-19 noted to be hypoxic on admission supplemental oxygen PRN follow respiratory status (3) Pneumonia due to COVID-19 virus: Code(s): U07.1 - COVID-19; J12.82 - Pneumonia due to coronavirus disease 2019 Status: Acute Assessment and Plan: noted positive testing at [place] [facility] consider remdesivir; on steroids at this time follow inflammatory markers (4) Hypertension: Code(s): I10 - Essential (primary) hypertension Status: Chronic Assessment and Plan: reasonable control at this time follow trend of hemodynamics (5) Anemia: Code(s): D64.9 - Anemia, unspecified Status: Chronic Assessment and Plan: due to ESRD Epogen with HD follow trend of H/H Will continue to follow. Subjective Date/time seen: 05/20/21 13:16 Now with symptoms of shortness of breath in association with hypoxia; started on decadron; imaging concerning for possible bacterial pneumonia as well so started on antibiotics; no other events to report at this time. Exam Narrative: General: ill appearing AA male in NAD Heart: normal S1 and S2; no rub Lungs: clear anteriorly; coarse at bases Abdomen: soft, nontender, nondistended, positive bowel sounds Extremities: no cyanosis or clubbing; no edema Skin: warm and dry Objective Data Vital Signs Vital Signs: Vital Signs Temp Pulse Resp BP Pulse Ox 05/20/21 13:15 95 05/20/21 12:00 72 05/20/21 09:00 36.2 C L 64 16 120/57 L 92 05/20/21 08:00 64 05/20/21 04:00 36.2 C L 62 16 122/60 96 05/20/21 00:00 36.0 C L 60 16 127/54 L 98 05/19/21 21:40 95 05/19/21 20:00 36.6 C 63 16 137/55 L 98 Intake/Output Intake/Output: Intake & Output 05/17/21 05/18/21 05/19/21 05/20/21 23:59 23:59 23:59 23:59 Intake Total 1040 540 Output Total 200 Balance 840 540 Meds/Results Medications: Active Medications Generic Name Dose Route Start Last Admin Trade Name Freq PRN Reason Stop Dose Admin Hydrocodone Bitart/Acetaminophen 1 tab 05/19/21 01:47 Hydrocodone/Acetaminophen (*Crx) 10-325 Mg Tablet PO Q6H PRN Pain Rated 7-10 Albuterol 2 puff 05/19/21 02:00 05/20/21 13:25 Albuterol Sulfate (*Sp) Aerosol 1 Puff INHALATION 2 puff Q6HRT LOKESH Administration Allopurinol 100 mg 05/19/21 21:00 05/19/21 21:11 Allopurinol 100 Mg Tablet PO 100 mg HS LOKESH Administration Amlodipine Besylate 5 mg 05/19/21 09:00 05/20/21 08:51 Amlodipine Besylate 5 Mg Tablet PO 5 mg DAILY LOKESH Administration Apixaban 2.5 mg 05/19/21 09:00 05/20/21 17:15 Apixaban 2.5 Mg Tablet PO 2.5 mg BID LOKESH Administration Atorvastatin Calcium 20 mg 05/19/21 21:00 05/19/21 21:11 Atorvastatin 20 Mg Tablet PO 20 mg HS LOKESH Administration Dexamethasone Sodium Phosphate 6 mg 05/19/21 09:00 05/20/21 10:06 Dexamethasone Sod Phos Inj 10 Mg/Ml 1 Ml Vial IV PUSH 05/28/21 09:01 6 mg DAILY LOKESH Administration Diltiazem HCl 120 mg 05/19/21 09:00 05/20/21 08:51 Diltiazem Hcl Cd 120 Mg Cap.Sa.24h PO 120 mg DAILY LOKESH Administration Furosemide 80 mg 05/19/21 09:00 05/20/21 17:16 Furosemide 80 Mg Tablet PO 80 mg BID LOKESH Administration Azithromycin 500 mg in 250 mls @ 250 mls/hr 05/19/21 03:00 05/19/21 22:11 Zithromax IVPB Infused DAILY@2200 LOKESH Infusion Cefepime HCl 0.5 gm/ Dextrose 50 mls @ 100 mls/hr 05/20/21 21:00 IVPB Q24H LOKESH Vancomycin HCl 1,000 mg in 250 mls @ 250 mls/hr 05/19/21
[2021-05-20] MEDS: allopurinoL 100 MG TABLET PO (21:47)
[2021-05-20] MEDS: ATORVASTATIN 20 MG TABLET PO (21:47)
[2021-05-20] MEDS: CEFEPIME 0.5 GM in DEXTROSE 5% IN WATER 50 ML IVPB (21:47)
[2021-05-20] MEDS: rOPINIRole HCL 0.5 MG TABLET PO (21:47)
[2021-05-20] MEDS: TAMSULOSIN HCL 0.4 MG CAPSULE PO (21:47)
[2021-05-21] VITALS (14 sets, daily range): BP systolic 117–145; BP diastolic 50–55; PULSE 64–84; RESP 16–18; TEMP 36.1–37.2; O2SAT 96–100
[2021-05-21] MEDS: ALBUTEROL SULFATE (*SP) AEROSOL 1 PUFF 2 PUFF INHALATION ×4 (03:10→20:22)
[2021-05-21] MEDS: APIXABAN 2.5 MG TABLET PO ×2 (09:20→17:01)
[2021-05-21] MEDS: lisinopriL 5 MG TABLET PO (09:20)
[2021-05-21] MEDS: FUROSEMIDE 80 MG TABLET PO ×2 (09:20→17:01)
[2021-05-21] MEDS: amLODIPine BESYLATE 5 MG TABLET PO (09:20)
[2021-05-21] MEDS: SEVELAMER CARBONATE 800 MG TABLET PO ×3 (09:20→17:01)
[2021-05-21 10:49] LABS: Hematocrit 28.4 % (42.0-52.0); Hemoglobin 9.2 g/dL (14.0-18.0); Mean Corpuscular HGB Conc 32.4 g/dl (32-36); Mean Corpuscular Hemoglobin 32.1 pg (26-34); Mean Platelet Volume 9.3 fl (7.4-10.4); Platelet Count Result 237 k/mm3 (150-375); Red Blood Count 2.87 M/mm3 (4.6-6.20); Red Cell Distribution Width 13.9 % (11.5-14.5); White Blood Count 12.4 K/mm3 (4.5-10.0)
[2021-05-21 11:11] LABS: Albumin Level 3.9 g/dL (3.5-5.1); Anion Gap 11 mmol/L (8-16); Blood Urea Nitrogen 87 mg/dL (9-20); Carbon Dioxide 31 mmol/L (22-30); Chloride 89 mmol/L (98-107); Estimated CRCL calculation 5 ml/min; Estimated Glomerular Filt Rate 6; Glucose 147 mg/dL (65-110); Phosphorus 4.6 mg/dL (2.5-4.5); Potassium 4.4 mmol/L (3.4-5.0); Sodium 131 mmol/L (137-145)
[2021-05-21 12:25] LABS: Hepatitis B Surface Antigen Negative (Negative)
[2021-05-21 12:31] LABS: HAV RESULT Negative (Negative); Hepatitis B Core IgM Result Negative (Negative)
[2021-05-21 12:43] LABS: Hepatitis B Surface Anti Res Negative; Hepatitis C Virus Antibody Negative (Negative)
--- NOTE | 2021-05-21 15:20 | PM.IMPN ---
Progress Note: A&P Assessment and Plan (1) Acute respiratory failure with hypoxia: Code(s): J96.01 - Acute respiratory failure with hypoxia Status: Acute Assessment and Plan: Likely secondary to pneumonia Patient placed on supplemental oxygen Continuous pulse ox Trend give oxygen saturation 94% 05/19/2021 Interval history: patient with shortness of breath multifactorial with a healthcare associated pneumonia being treated with cefepime, vancomycin and azithromycin, as well as patient is positive for COVID patient is being treated with dexamethasone, patient remains somnolent unable to provide detailed review of symptom, will continue present management, will have a PT OT evaluate the patient further recommendation to follow. 05/20/2021 Interval history: patient with shortness of breath multifactorial with a healthcare associated pneumonia being treated with cefepime, vancomycin and azithromycin, repeat chest x-ray tomorrow, as well as patient is positive for COVID patient is being treated with dexamethasone 06/07, there was a concern of dysphagia as patient was coughing, had a bedside swallow study and patient passed, will continue present management, will have a PT OT evaluate the patient further recommendation to follow. 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 (2) Multilobar lung infiltrate: Code(s): R91.8 - Other nonspecific abnormal finding of lung field Status: Acute Assessment and Plan: Started on cefepime and vanco and Zithromax as patient has been recently to the hospital as well as has undergone hemodialysis. Blood cultures in progress (3) Pneumonia due to COVID-19 virus: Code(s): U07.1 - COVID-19; J12.82 - Pneumonia due to coronavirus disease 2019 Status: Acute Assessment and Plan: Supportive care (4) End-stage renal disease on hemodialysis: Code(s): N18.6 - End stage renal disease; Z99.2 - Dependence on renal dialysis Status: Acute Assessment and Plan: Continue hemodialysis as needed Nephrology consult Subjective Date/time seen: 05/21/21 15:20 05/19/2021 Interval history: patient with shortness of breath multifactorial with a healthcare associated pneumonia being treated with cefepime, vancomycin and azithromycin, as well as patient is positive for COVID patient is being treated with dexamethasone, patient remains somnolent unable to provide detailed review of symptom, will continue present management, will have a PT OT evaluate the patient further recommendation to follow. 05/20/2021 Interval history: patient with shortness of breath multifactorial with a healthcare associated pneumonia being treated with cefepime, vancomycin and azithromycin, repeat chest x-ray tomorrow, as well as patient is positive for COVID patient is being treated with dexamethasone 06/07, there was a concern of dysphagia as patient was coughing, had a bedside swallow study and patient passed, will continue present management, will have a PT OT evaluate the patient further recommendation to follow. 05/21/2021 Interval history: patient with shortness of breath multifactorial with a healthcare associated pneumonia being treated with cefepime, vancomycin and azithromycin, repeat chest x-ray today showed persistent pneumonia as well as patient is positive for COVID harrison
--- NOTE | 2021-05-21 15:34 | PM.PNNEP ---
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 follow electrolytes, volume status, and clearance (2) Acute respiratory failure with hypoxia: Code(s): J96.01 - Acute respiratory failure with hypoxia Status: Acute Assessment and Plan: due to COVID-19 noted to be hypoxic on admission supplemental oxygen PRN follow respiratory status (3) Pneumonia due to COVID-19 virus: Code(s): U07.1 - COVID-19; J12.82 - Pneumonia due to coronavirus disease 2018 Status: Acute Assessment and Plan: noted positive testing at [place] [facility] consider remdesivir; on steroids at this time possible bacterial pneumonia as well - on antibiotics follow inflammatory markers (4) Hypertension: Code(s): I10 - Essential (primary) hypertension Status: Chronic Assessment and Plan: reasonable control at this time follow trend of hemodynamics (5) Anemia: Code(s): D64.9 - Anemia, unspecified Status: Chronic Assessment and Plan: due to ESRD Epogen with HD follow trend of H/H Will continue to follow. Subjective Date/time seen: 05/21/21 15:34 Respiratory status relatively stable at this time; no acute complaints on my visit with him; tolerating IV antibiotic therapy; no other acute complaints voiced although his underlying dementia limits evaluation; no issues/events overnight or earlier this morning. Exam Narrative: General: ill appearing AA male in NAD Heart: normal S1 and S2; no rub Lungs: clear anteriorly; coarse at bases Abdomen: soft, nontender, nondistended, positive bowel sounds Extremities: no cyanosis or clubbing; no edema Skin: warm and dry Objective Data Vital Signs Vital Signs: Vital Signs Temp Pulse Resp BP Pulse Ox 05/21/21 14:43 65 18 05/21/21 14:00 36.7 C 74 16 117/52 L 97 05/21/21 12:00 76 05/21/21 10:15 84 18 05/21/21 09:13 36.2 C L 67 18 145/54 H 96 05/21/21 08:00 71 05/21/21 05:51 37.2 C 66 16 137/55 L 100 05/21/21 04:00 74 05/21/21 03:10 64 05/21/21 00:00 66 05/20/21 22:00 36.3 C L 59 L 16 123/55 L 98 05/20/21 20:40 59 L 94 05/20/21 20:00 62 05/20/21 17:30 36.1 C L 60 16 131/54 L 97 Intake/Output Intake/Output: Intake & Output 05/18/21 05/19/21 05/20/21 05/21/21 23:59 23:59 23:59 23:59 Intake Total 1040 1080 870 Output Total 200 Balance 840 1080 870 Meds/Results Medications: Active Medications Generic Name Dose Route Start Last Admin Trade Name Freq PRN Reason Stop Dose Admin Hydrocodone Bitart/Acetaminophen 1 tab 05/19/21 01:47 Hydrocodone/Acetaminophen (*Crx) 10-325 Mg Tablet PO Q6H PRN Pain Rated 7-10 Albuterol 2 puff 05/19/21 02:00 05/21/21 14:43 Albuterol Sulfate (*Sp) Aerosol 1 Puff INHALATION 2 puff Q6HRT LOKESH Administration Allopurinol 100 mg 05/19/21 21:00 05/20/21 21:47 Allopurinol 100 Mg Tablet PO 100 mg HS LOKESH Administration Amlodipine Besylate 5 mg 05/19/21 09:00 05/21/21 09:20 Amlodipine Besylate 5 Mg Tablet PO 5 mg DAILY LOKESH Administration Apixaban 2.5 mg 05/19/21 09:00 05/21/21 09:20 Apixaban 2.5 Mg Tablet PO 2.5 mg BID LOKESH Administration Atorvastatin Calcium 20 mg 05/19/21 21:00 05/20/21 21:47 Atorvastatin 20 Mg Tablet PO 20 mg HS LOKESH Administration Dexamethasone Sodium Phosphate 6 mg 05/19/21 09:00 05/21/21 09:20 Dexamethasone Sod Phos Inj 10 Mg/Ml 1 Ml Vial IV PUSH 05/28/21 09:01 6 mg DAILY LOKESH Administration Diltiazem HCl 120 mg 05/19/21 09:00 05/21/21 09:20 Diltiazem Hcl Cd 120 Mg Cap.Sa.24h PO 120 mg DAILY LOKESH Administration Epoetin Bacilio-epbx 10
--- NOTE | 2021-05-21 15:34 | P.PNNP_ITS ---
Progress Note: A&P Assessment and Plan (1) End stage renal disease: Code(s): N18.6 - End stage renal disease Status: Chronic Assessment and Plan: * plan HD tomorrow and continue dialysis 3x/week * outpatient dialysis unit = 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 * follow electrolytes, volume status, and clearance (2) Acute respiratory failure with hypoxia: Code(s): J96.01 - Acute respiratory failure with hypoxia Status: Acute Assessment and Plan: * due to COVID-19 * noted to be hypoxic on admission * supplemental oxygen PRN * follow respiratory status (3) Pneumonia due to COVID-19 virus: Code(s): U07.1 - COVID-19; J12.82 - Pneumonia due to coronavirus disease 2018 Status: Acute Assessment and Plan: * noted positive testing at [place] [facility] * consider remdesivir; on steroids at this time * possible bacterial pneumonia as well - on antibiotics * follow inflammatory markers (4) Hypertension: Code(s): I10 - Essential (primary) hypertension Status: Chronic Assessment and Plan: * reasonable control at this time * follow trend of hemodynamics (5) Anemia: Code(s): D64.9 - Anemia, unspecified Status: Chronic Assessment and Plan: * due to ESRD * Epogen with HD * follow trend of H/H Will continue to follow. Subjective Date/time seen: 05/21/21 15:34 Respiratory status relatively stable at this time; no acute complaints on my visit with him; tolerating IV antibiotic therapy; no other acute complaints voiced although his underlying dementia limits evaluation; no issues/events overnight or earlier this morning. Exam Narrative: General: ill appearing AA male in NAD Heart: normal S1 and S2; no rub Lungs: clear anteriorly; coarse at bases Abdomen: soft, nontender, nondistended, positive bowel sounds Extremities: no cyanosis or clubbing; no edema Skin: warm and dry Objective Data Vital Signs Vital Signs: Vital Signs Temp Pulse Resp BP Pulse Ox 05/21/21 14:43 65 18 05/21/21 14:00 36.7 C 74 16 117/52 L 97 05/21/21 12:00 76 05/21/21 10:15 84 18 05/21/21 09:13 36.2 C L 67 18 145/54 H 96 05/21/21 08:00 71 05/21/21 05:51 37.2 C 66 16 137/55 L 100 05/21/21 04:00 74 05/21/21 03:10 64 05/21/21 00:00 66 05/20/21 22:00 36.3 C L 59 L 16 123/55 L 98 05/20/21 20:40 59 L 94 05/20/21 20:00 62 05/20/21 17:30 36.1 C L 60 16 131/54 L 97 Intake/Output Intake/Output: Intake & Output 05/18/21 05/19/21 05/20/21 05/21/21 23:59 23:59 23:59 23:59 Intake Total 1040 1080 870 Output Total 200 Balance 840 1080 870 Meds/Results Medications: Active Medications Generic Name Dose Route Start Last Admin Trade Name Freq PRN Reason Stop Dose Admin Hydrocodone Bitart/Acetaminophen 1 tab 05/19/21 01:47 Hydrocodone/Acetaminophen (*Crx) 10-325 Mg Tablet PO Q6H PRN Pain Rated 7-10 Albuterol 2 puff 05/19/21 02:00 05/21/21 14:43 Albuterol Sulfate (*Sp) Aerosol 1 Puff INHALATION 2 puff Q6HRT LOKESH Administration Allopurinol 100 mg 0
[2021-05-21] MEDS: allopurinoL 100 MG TABLET PO (21:13)
[2021-05-21] MEDS: TAMSULOSIN HCL 0.4 MG CAPSULE PO (21:13)
[2021-05-21] MEDS: ATORVASTATIN 20 MG TABLET PO (21:13)
[2021-05-21] MEDS: rOPINIRole HCL 0.5 MG TABLET PO (21:13)
[2021-05-21] MEDS: CEFEPIME 0.5 GM in DEXTROSE 5% IN WATER 50 ML IVPB (21:17)
[2021-05-21 21:47] LABS: Vancomycin Random 11.4 ug/mL (10-20)
[2021-05-22] VITALS (31 sets, daily range): BP systolic 110–164; BP diastolic 44–79; PULSE 62–90; RESP 14–16; TEMP 36.1–36.8; O2SAT 85–100
[2021-05-22] MEDS: ALBUTEROL SULFATE (*SP) AEROSOL 1 PUFF 2 PUFF INHALATION ×4 (02:02→23:10)
[2021-05-22 06:51] LABS: Albumin Level 3.5 g/dL (3.5-5.1); Anion Gap 11 mmol/L (8-16); Blood Urea Nitrogen 101 mg/dL (9-20); Calcium 7.4 mg/dL (8.4-10.2); Carbon Dioxide 29 mmol/L (22-30); Chloride 85 mmol/L (98-107); Estimated CRCL calculation 5 ml/min; Estimated Glomerular Filt Rate 6; Glucose 180 mg/dL (65-110); Phosphorus 4.6 mg/dL (2.5-4.5); Potassium 4.3 mmol/L (3.4-5.0); Sodium 125 mmol/L (137-145)
--- NOTE | 2021-05-22 10:24 | P.PNNP_ITS ---
Progress Note: A&P Assessment and Plan (1) End stage renal disease: Code(s): N18.6 - End stage renal disease Status: Chronic Assessment and Plan: * HD today and continue dialysis 3x/week * outpatient dialysis unit = [facility] * primary supervisor irrigation = Dr. Blackman * follow electrolytes, volume status, and clearance (2) Acute respiratory failure with hypoxia: Code(s): J96.01 - Acute respiratory failure with hypoxia Status: Acute Assessment and Plan: * due to COVID-19 * noted to be hypoxic on admission * supplemental oxygen PRN * follow respiratory status (3) Pneumonia due to COVID-19 virus: Code(s): U07.1 - COVID-19; J12.82 - Pneumonia due to coronavirus disease 2018 Status: Acute Assessment and Plan: * noted positive testing at [place] [facility] * consider remdesivir; on steroids at this time * possible bacterial pneumonia as well - on antibiotics * follow inflammatory markers (4) Hypertension: Code(s): I10 - Essential (primary) hypertension Status: Chronic Assessment and Plan: * reasonable control at this time * follow trend of hemodynamics (5) Anemia: Code(s): D64.9 - Anemia, unspecified Status: Chronic Assessment and Plan: * due to ESRD * Epogen with HD * follow trend of H/H Will continue to follow. Subjective Date/time seen: 05/22/21 10:24 Tolerating dialysis at the time of my visit (seen on HD at 10:15AM); no apparent distress noted but underlying dementia limits full assessment; no issues/events overnight or earlier this AM; no apparent distress noted. Exam 2 Narrative: General: ill appearing AA male in NAD Heart: normal S1 and S2; no rub Lungs: clear anteriorly; coarse at bases Abdomen: soft, nontender, nondistended, positive bowel sounds Extremities: no cyanosis or clubbing; no edema Skin: warm and intact Objective Data Vital Signs Vital Signs: Vital Signs Temp Pulse Resp BP Pulse Ox 05/22/21 10:15 77 139/67 05/22/21 10:00 69 159/72 H 05/22/21 09:45 75 157/61 H 05/22/21 09:30 71 155/57 H 05/22/21 09:15 76 147/71 H 05/22/21 09:00 78 144/64 H 05/22/21 08:48 74 153/65 H 05/22/21 08:35 36.7 C 76 16 140/68 05/22/21 05:36 36.3 C L 64 16 119/44 L 100 05/22/21 00:00 62 05/21/21 22:00 36.1 C L 65 16 145/50 H 100 05/21/21 20:24 96 05/21/21 20:00 65 16 100 05/21/21 16:00 64 05/21/21 14:43 65 18 05/21/21 14:00 36.7 C 74 16 117/52 L 97 05/21/21 12:00 76 Intake/Output Intake/Output: Intake & Output 05/19/21 05/20/21 05/21/21 05/22/21 23:59 23:59 23:59 23:59 Intake Total 1040 1080 1170 990 Output Total 200 Balance 840 1080 1170 990 Meds/Results Medications: Active Medications Generic Name Dose Route Start Last Admin Trade Name Padmini PRN Reason Stop Dose Admin Hydrocodone Bitart/Acetaminophen 1 tab 05/19/21 01:47 Hydrocodone/Acetaminophen (*Crx) 10-325 Mg Tablet PO Q6H PRN Pain Rated 7-10 Albuterol 2 puff 05/19/21 02:00 05/22/21 08:13 Albuterol Sulfate (*Sp) Aerosol 1 Puff INHALATI
--- NOTE | 2021-05-22 10:24 | PM.PNNEP ---
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 follow electrolytes, volume status, and clearance (2) Acute respiratory failure with hypoxia: Code(s): J96.01 - Acute respiratory failure with hypoxia Status: Acute Assessment and Plan: due to COVID-19 noted to be hypoxic on admission supplemental oxygen PRN follow respiratory status (3) Pneumonia due to COVID-19 virus: Code(s): U07.1 - COVID-19; J12.82 - Pneumonia due to coronavirus disease 2018 Status: Acute Assessment and Plan: noted positive testing at [place] [facility] consider remdesivir; on steroids at this time possible bacterial pneumonia as well - on antibiotics follow inflammatory markers (4) Hypertension: Code(s): I10 - Essential (primary) hypertension Status: Chronic Assessment and Plan: reasonable control at this time follow trend of hemodynamics (5) Anemia: Code(s): D64.9 - Anemia, unspecified Status: Chronic Assessment and Plan: due to ESRD Epogen with HD follow trend of H/H Will continue to follow. Subjective Date/time seen: 05/22/21 10:24 Tolerating dialysis at the time of my visit (seen on HD at 10:15AM); no apparent distress noted but underlying dementia limits full assessment; no issues/events overnight or earlier this AM; no apparent distress noted. Exam Narrative: General: ill appearing AA male in NAD Heart: normal S1 and S2; no rub Lungs: clear anteriorly; coarse at bases Abdomen: soft, nontender, nondistended, positive bowel sounds Extremities: no cyanosis or clubbing; no edema Skin: warm and intact Objective Data Vital Signs Vital Signs: Vital Signs Temp Pulse Resp BP Pulse Ox 05/22/21 10:15 77 139/67 05/22/21 10:00 69 159/72 H 05/22/21 09:45 75 157/61 H 05/22/21 09:30 71 155/57 H 05/22/21 09:15 76 147/71 H 05/22/21 09:00 78 144/64 H 05/22/21 08:48 74 153/65 H 05/22/21 08:35 36.7 C 76 16 140/68 05/22/21 05:36 36.3 C L 64 16 119/44 L 100 05/22/21 00:00 62 05/21/21 22:00 36.1 C L 65 16 145/50 H 100 05/21/21 20:24 96 05/21/21 20:00 65 16 100 05/21/21 16:00 64 05/21/21 14:43 65 18 05/21/21 14:00 36.7 C 74 16 117/52 L 97 05/21/21 12:00 76 Intake/Output Intake/Output: Intake & Output 05/19/21 05/20/21 05/21/21 05/22/21 23:59 23:59 23:59 23:59 Intake Total 1040 1080 1170 990 Output Total 200 Balance 840 1080 1170 990 Meds/Results Medications: Active Medications Generic Name Dose Route Start Last Admin Trade Name Freq PRN Reason Stop Dose Admin Hydrocodone Bitart/Acetaminophen 1 tab 05/19/21 01:47 Hydrocodone/Acetaminophen (*Crx) 10-325 Mg Tablet PO Q6H PRN Pain Rated 7-10 Albuterol 2 puff 05/19/21 02:00 05/22/21 08:13 Albuterol Sulfate (*Sp) Aerosol 1 Puff INHALATION 2 puff Q6HRT LOKESH Administration Allopurinol 100 mg 05/19/21 21:00 05/21/21 21:13 Allopurinol 100 Mg Tablet PO 100 mg HS LOKESH Administration Amlodipine Besylate 5 mg 05/19/21 09:00 05/21/21 09:20 Amlodipine Besylate 5 Mg Tablet PO 5 mg DAILY LOKESH Administration Apixaban 2.5 mg 05/19/21 09:00 05/21/21 17:01 Apixaban 2.5 Mg Tablet PO 2.5 mg BID LOKESH Administration Atorvastatin Calcium 20 mg 05/19/21 21:00 05/21/21 21:13 Atorvastatin 20 Mg Tablet PO 20 mg HS LOKESH Administration Dexamethasone Sodium Phosphate 6 mg 05/19/21 09:00 05/21/21 09:20 Dexamethasone Sod Phos Inj 10 Mg/Ml 1 Ml Vial IV PUSH 05/28/21 09:01 6 mg DAILY LOKESH Administration Diltiazem HCl 120 mg 05/19/21 09:05/21/21 09:20 Diltiazem Hcl Cd 120 Mg Cap.Sa.24h PO
[2021-05-22] MEDS: SODIUM CHLORIDE 0.9% IV 1,000 ML 999 ML IV CONT (11:11)
--- NOTE | 2021-05-22 11:16 | PM.IMPN ---
Progress Note: A&P Assessment and Plan (1) Acute respiratory failure with hypoxia: Code(s): J96.01 - Acute respiratory failure with hypoxia Status: Acute Assessment and Plan: Likely secondary to pneumonia Patient placed on supplemental oxygen Multifactorial secondary to bacterial pneumonia complicating COVID-19 pneumonia (2) Multilobar lung infiltrate: Code(s): R91.8 - Other nonspecific abnormal finding of lung field Status: Acute Assessment and Plan: Rocephin and Zithromax monitor (3) Pneumonia due to COVID-19 virus: Code(s): U07.1 - COVID-19; J12.82 - Pneumonia due to coronavirus disease 2018 Status: Acute Assessment and Plan: Dexamethasone (4) End-stage renal disease on hemodialysis: Code(s): N18.6 - End stage renal disease; Z99.2 - Dependence on renal dialysis Status: Acute Assessment and Plan: Continue hemodialysis as needed Nephrology consult Acute hyponatremia nephrology following Subjective Date/time seen: 05/22/21 11:16 Interval history: Patient seen and examined Patient was admitted to the hospital with shortness of breath was found to have pneumonia probable bacterial pneumonia complicated COVID-19 pneumonia patient was treated with dexamethasone currently on 2 L of oxygen Patient on broad-spectrum IV antibiotics switch antibiotic to IV Rocephin and IV azithromycin as cultures not growing any bacteria Patient has hyponatremia today Patient feels weak Patient denies fever headache chest pain I am seeing the patient for shortness of breath Exam Narrative: Patient is comfortable, NAD, appears chronically ill HEENT: eyes are clear and none icteric LUNGS: normal respiratory effort ABD: not distended Lower extremities: no edema SKIN: nonjaundiced Neuro: grossly intact. Objective Data Vital Signs Vital Signs: Vital Signs - 24 hr 05/21/21 12:00 05/21/21 14:00 05/21/21 14:43 Temperature 98.0 F Pulse Rate 76 74 65 Respiratory Rate 16 18 Blood Pressure 117/52 L Pulse Oximetry 97 05/21/21 16:00 05/21/21 20:00 05/21/21 20:24 Temperature Pulse Rate 64 65 Respiratory Rate 16 Blood Pressure Pulse Oximetry 100 96 05/21/21 22:00 05/22/21 00:00 05/22/21 05:36 Temperature 97.0 F L 97.3 F L Pulse Rate 65 62 64 Respiratory Rate 16 16 Blood Pressure 145/50 H 119/44 L Pulse Oximetry 100 100 05/22/21 08:00 05/22/21 08:35 05/22/21 08:48 Temperature 98.0 F Pulse Rate 71 76 74 Respiratory Rate 16 Blood Pressure 140/68 153/65 H Pulse Oximetry 05/22/21 09:00 05/22/21 09:15 05/22/21 09:30 Temperature Pulse Rate 78 76 71 Respiratory Rate Blood Pressure 144/64 H 147/71 H 155/57 H Pulse Oximetry 05/22/21 09:45 05/22/21 10:00 05/22/21 10:15 Temperature Pulse Rate 75 69 77 Respiratory Rate Blood Pressure 157/61 H 159/72 H 139/67 Pulse Oximetry 05/22/21 10:30 05/22/21 10:45 05/22/21 11:00 Temperature Pulse Rate 74 65 76 Respiratory Rate Blood Pressure 164/61 H 145/48 H 126/60 Pulse Oximetry Intake/Output Intake/Output: Intake & Output 05/19/21 05/20/21 05/21/21 05/22/21 23:59 23:59 23:59 23:59 Intake Total 1040 1080 1170 990 Output Total 200 Balance 840 1080 1170 990 Meds/Results Medications: Active Medications Generic Name Dose Route Start Last Admin Trade Name Freq PRN Reason Stop Dose Admin Hydrocodone Bitart/Acetaminophen 1 tab 05/19/21 01:47 Hydrocodone/Acetaminophen (*Crx) 10-325 Mg Tablet PO Q6H PRN Pain Rated 7-10 Albuterol 2 puff 05/19/21 02:00 05/22/21 08:13 Albuterol Sulfate (*Sp) Aerosol 1 Puff INHALATION 2 puff Q6HRT LOKESH Administration Allopurinol 100 mg 05/19/21 21:00 05/21/21 21:13 Allopurinol 100 Mg Tablet PO 100 mg HS LOKESH Administration Amlodipine Besylate 5 mg 05/19/21 09:00 05/21/21 09:20 Amlodipine Besylate 5 Mg Tablet PO 5 mg DAILY LOKESH Administrati
[2021-05-22] MEDS: EPOETIN ALFA-EPBX 10,000 UNITS/ML VIAL 10000 UNITS IV PUSH (11:42)
[2021-05-22] MEDS: lisinopriL 5 MG TABLET PO (12:18)
[2021-05-22] MEDS: FUROSEMIDE 80 MG TABLET PO ×2 (12:18→17:14)
[2021-05-22] MEDS: amLODIPine BESYLATE 5 MG TABLET PO (12:19)
[2021-05-22] MEDS: SEVELAMER CARBONATE 800 MG TABLET PO ×2 (12:19→17:14)
[2021-05-22] MEDS: APIXABAN 2.5 MG TABLET PO ×2 (12:19→17:14)
--- NOTE | 2021-05-22 14:28 | HOMEO2EVAL ---
Evaluation was performed at [facility] Home Oxygen Evaluation RC: Home Oxygen (O2) Evaluation Start: 05/21/21 14:16 Freq: ONCE Status: Active Protocol: RPE Activity Type Activity Date Activity User E-Sign Co-Sign Detail Recorded Client Recorded Date Recorded By Document 05/22/21 14:00 BLANCA [email or web address] 05/22/21 14:28 BLANCA Document 05/22/21 14:01 BLANCA [email or web address] 05/22/21 14:28 BLANCA Document 05/22/21 14:02 BLANCA [email or web address] 05/22/21 14:28 BLANCA Document 05/22/21 14:05 BLANCA [email or web address] 05/22/21 14:28 BLANCA Document 05/22/21 14:08 BLANCA [email or web address] 05/22/21 14:28 BLANCA Document 05/22/21 14:10 BLANCA [email or web address] 05/22/21 14:28 BLANCA Document 05/22/21 14:20 BLANCA [email or web address] 05/22/21 14:28 BLANCA 05/22/21 05/22/21 05/22/21 14:00 14:01 14:02 Home O2 Evaluation Test Phase Resting Resting Resting Oxygen Delivery Room Air Nasal Cannula Nasal Cannula Oxygen Flow Rate (L/min) 1 2 Pulse Oximetry (90-100 %) 87 L 87 L 91 Home Oxygen Evaluation Comments Treatment Charges O2 Evaluation - Inpatient 05/22/21 05/22/21 05/22/21 14:05 14:08 14:10 Home O2 Evaluation Test Phase Exercise Exercise Exercise Oxygen Delivery Nasal Cannula Nasal Cannula Nasal Cannula Oxygen Flow Rate (L/min) 2 3 4 Pulse Oximetry (90-100 %) 85 L 87 L 90 Home Oxygen Evaluation Comments PT REQUIRES 2 L AT REST AND 4 L WITH EXERTION Treatment Charges 05/22/21 14:20 Home O2 Evaluation Test Phase Resting Oxygen Delivery Nasal Cannula Oxygen Flow Rate (L/min) 2 Pulse Oximetry (90-100 %) 92 Home Oxygen Evaluation Comments Treatment Charges
--- NOTE | 2021-05-22 14:28 | PCRCNOTE ---
HOME O2 EVAL DONE, PT REQUIRES 2 L REST AND 4 L ACTIVITY, WILL ARRANGE O2 WITH [facility]. CONTACT NAME MARITZA [phone]. THEY WILL BRING IN T[facility] FOR TRANSPORT HOME.
[2021-05-22] MEDS: cefTRIAXone 2 GM in SODIUM CHLORIDE 0.9% IV 100 ML 200 ML IVPB (15:04)
[2021-05-22] MEDS: ATORVASTATIN 20 MG TABLET PO (20:40)
[2021-05-22] MEDS: rOPINIRole HCL 0.5 MG TABLET PO (20:40)
[2021-05-22] MEDS: TAMSULOSIN HCL 0.4 MG CAPSULE PO (20:40)
[2021-05-22] MEDS: allopurinoL 100 MG TABLET PO (20:40)
[2021-05-23 03:47] VITALS: BP 148/53; PULSE 54; RESP 16; TEMP 36.6; O2SAT 100
[2021-05-23] MEDS: ALBUTEROL SULFATE (*SP) AEROSOL 1 PUFF 2 PUFF INHALATION ×4 (05:50→21:35)
[2021-05-23 07:34] LABS: Albumin Level 3.8 g/dL (3.5-5.1); Anion Gap 10 mmol/L (8-16); Blood Urea Nitrogen 51 mg/dL (9-20); Calcium 7.9 mg/dL (8.4-10.2); Carbon Dioxide 33 mmol/L (22-30); Chloride 90 mmol/L (98-107); Estimated CRCL calculation 7 ml/min; Estimated Glomerular Filt Rate 10; Glucose 141 mg/dL (65-110); Phosphorus 3.8 mg/dL (2.5-4.5); Potassium 4.5 mmol/L (3.4-5.0); Sodium 133 mmol/L (137-145)
[2021-05-23 08:00] VITALS: BP 153/50; PULSE 65; RESP 16; TEMP 35.9; O2SAT 98
[2021-05-23] MEDS: SEVELAMER CARBONATE 800 MG TABLET PO ×3 (09:37→17:17)
[2021-05-23] MEDS: FUROSEMIDE 80 MG TABLET PO ×2 (09:37→17:17)
[2021-05-23] MEDS: lisinopriL 5 MG TABLET PO (09:37)
[2021-05-23] MEDS: amLODIPine BESYLATE 5 MG TABLET PO (09:37)
[2021-05-23] MEDS: APIXABAN 2.5 MG TABLET PO ×2 (09:37→17:17)
--- NOTE | 2021-05-23 10:22 | PM.IMPN ---
Progress Note: A&P Assessment and Plan (1) Acute respiratory failure with hypoxia: Code(s): J96.01 - Acute respiratory failure with hypoxia Status: Acute Assessment and Plan: Likely secondary to pneumonia Patient placed on supplemental oxygen Multifactorial secondary to bacterial pneumonia complicating COVID-19 pneumonia (2) Multilobar lung infiltrate: Code(s): R91.8 - Other nonspecific abnormal finding of lung field Status: Acute Assessment and Plan: Rocephin and Zithromax repeat chest x-ray CBC CRP procalcitonin ferritin monitor Anticipate discharge in a.m. pending workup (3) Pneumonia due to COVID-19 virus: Code(s): U07.1 - COVID-19; J12.82 - Pneumonia due to coronavirus disease 2019 Status: Acute Assessment and Plan: Dexamethasone (4) End-stage renal disease on hemodialysis: Code(s): N18.6 - End stage renal disease; Z99.2 - Dependence on renal dialysis Status: Acute Assessment and Plan: Continue hemodialysis as needed Nephrology consult Acute hyponatremia nephrology following Subjective Date/time seen: 05/23/21 10:22 Interval history: Patient seen and examined Patient was admitted to the hospital with shortness of breath was found to have pneumonia probable bacterial pneumonia complicated COVID-19 pneumonia patient was treated with dexamethasone currently on 2 L of oxygen Patient on broad-spectrum IV antibiotics switch antibiotic to IV Rocephin and IV azithromycin as cultures not growing any bacteria Has episodes of hypothermia Check chest x-ray CBC procalcitonin ferritin Patient feels weak Patient denies fever headache chest pain I am seeing the patient for shortness of breath Exam Narrative: Patient is comfortable, NAD, appears chronically ill HEENT: eyes are clear and none icteric LUNGS: normal respiratory effort ABD: not distended Lower extremities: no edema SKIN: nonjaundiced Neuro: grossly intact. Objective Data Vital Signs Vital Signs: Vital Signs - 24 hr 05/22/21 10:30 05/22/21 10:45 05/22/21 11:00 Temperature Pulse Rate 74 65 76 Respiratory Rate Blood Pressure 164/61 H 145/48 H 126/60 Pulse Oximetry 05/22/21 11:15 05/22/21 11:30 05/22/21 11:51 Temperature Pulse Rate 68 85 70 Respiratory Rate Blood Pressure 129/59 L 125/62 110/54 L Pulse Oximetry 05/22/21 12:00 05/22/21 12:05 05/22/21 12:10 Temperature 97.6 F Pulse Rate 90 74 Respiratory Rate 16 Blood Pressure 136/74 Pulse Oximetry 95 05/22/21 12:15 05/22/21 14:00 05/22/21 14:01 Temperature 97.9 F 98.2 F Pulse Rate 86 83 Respiratory Rate 14 16 Blood Pressure 144/66 H 149/79 H Pulse Oximetry 95 97 87 L 05/22/21 14:02 05/22/21 14:05 05/22/21 14:08 Temperature Pulse Rate Respiratory Rate Blood Pressure Pulse Oximetry 91 85 L 87 L 05/22/21 14:10 05/22/21 14:20 05/22/21 20:00 Temperature 97.1 F L Pulse Rate 64 Respiratory Rate 16 Blood Pressure 123/53 L Pulse Oximetry 90 92 98 05/22/21 23:10 05/22/21 23:59 05/23/21 03:47 Temperature 97.0 F L 97.9 F Pulse Rate 72 54 L Respiratory Rate 16 16 Blood Pressure 156/62 H 148/53 H Pulse Oximetry 97 98 100 05/23/21 08:00 Temperature 96.6 F L Pulse Rate 65 Respiratory Rate 16 Blood Pressure 153/50 H Pulse Oximetry 98 Intake/Output Intake/Output: Intake & Output 05/20/21 05/21/21 05/22/21 05/23/21 23:59 23:59 23:59 23:59 Intake Total 1080 1170 3000 250 Output Total 2500 Balance 1080 1170 500 250 Meds/Results Medications: Active Medications Generic Name Dose Route Start Last Admin Trade Name Freq PRN Reason Stop Dose Admin Hydrocodone Bitart/Acetaminophen 1 tab 05/19/21 01:47 Hydrocodone/Acetaminophen (*Crx) 10-325 Mg Tablet PO Q6H PRN Pain Rated 7-10 Albuterol 2 puff 05/19/21 02:00 05/23/21 08:41 Albuterol Sulfate (*Sp) Aerosol 1 Puff INHALATION 2 puff Q6HRT [facility] Adm
[2021-05-23 10:51] LABS: Basophils Percent Auto 0.2 % (0.2-1.2); Hematocrit 31.7 % (42.0-52.0); Hemoglobin 10.1 g/dL (14.0-18.0); Immature Granulocyte Absolute 0.58 K/mm3 (0.00-0.031); Immature Granulocyte Percent A 4.9 % (0-0.5); Lymphocytes Absolute Auto 0.71 K/mm3 (0.9-3.2); Mean Corpuscular HGB Conc 31.9 g/dl (32-36); Mean Corpuscular Hemoglobin 32.3 pg (26-34); Mean Corpuscular Volume 101.3 fl (80-100); Mean Platelet Volume 9.8 fl (7.4-10.4); Monocytes Absolute Auto 0.8 K/mm3 (0.1-0.6); Monocytes Percent Auto 6.3 % (2.6-8.5); Neutrophils Absolute Auto 9.8 K/mm3 (1.3-6.7); Neutrophils Percent Auto 82.6 % (45.5-73.1); Platelet Count Result 240 k/mm3 (150-375); Red Blood Count 3.13 M/mm3 (4.6-6.20); Red Cell Distribution Width 13.6 % (11.5-14.5); White Blood Count 11.9 K/mm3 (4.5-10.0)
[2021-05-23 10:53] LABS: CRP 2.7 mg/dL (<1.0)
[2021-05-23 11:48] LABS: Procalcitonin 3.3 ng/mL
[2021-05-23 11:56] VITALS: BP 141/59; PULSE 70; RESP 16; TEMP 36.3; O2SAT 98
--- NOTE | 2021-05-23 12:46 | P.PNNP_ITS ---
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 Blackman * follow electrolytes, volume status, and clearance (2) Acute respiratory failure with hypoxia: Code(s): J96.01 - Acute respiratory failure with hypoxia Status: Acute Assessment and Plan: * due to COVID-19 * noted to be hypoxic on admission * supplemental oxygen PRN * follow respiratory status (3) Pneumonia due to COVID-19 virus: Code(s): U07.1 - COVID-19; J12.82 - Pneumonia due to coronavirus disease 2018 Status: Acute Assessment and Plan: * noted positive testing at [facility] * consider remdesivir; on steroids at this time * possible bacterial pneumonia as well - on antibiotics * follow inflammatory markers (4) Hypertension: Code(s): I10 - Essential (primary) hypertension Status: Chronic Assessment and Plan: * reasonable control at this time * follow trend of hemodynamics (5) Anemia: Code(s): D64.9 - Anemia, unspecified Status: Chronic Assessment and Plan: * due to ESRD * Epogen with HD * follow trend of H/H Will continue to follow. Subjective Date/time seen: 05/23/21 12:46 Respiratory status appear relatively stable at this time; tolerated dialysis treatment yesterday wihout any issues or problems; no apparent distress noted; no issues/events overnight or earlier this AM. Exam Narrative: General: ill appearing AA male in NAD Heart: normal S1 and S2; no rub Lungs: clear anteriorly; coarse at bases Abdomen: soft, nontender, nondistended, positive bowel sounds Extremities: no cyanosis or clubbing; no edema Skin: no rash or nodules Objective Data Vital Signs Vital Signs: Vital Signs Temp Pulse Resp BP Pulse Ox 05/23/21 11:56 36.3 C L 70 16 141/59 H 98 05/23/21 08:00 35.9 C L 65 16 153/50 H 98 05/23/21 03:47 36.6 C 54 L 16 148/53 H 100 05/22/21 23:59 36.1 C L 72 16 156/62 H 98 05/22/21 23:10 97 05/22/21 20:00 36.2 C L 64 16 123/53 L 98 Intake/Output Intake/Output: Intake & Output 05/20/21 05/21/21 05/22/21 05/23/21 23:59 23:59 23:59 23:59 Intake Total 1080 1170 3000 600 Output Total 2500 Balance 1080 1170 500 600 Meds/Results Medications: Active Medications Generic Name Dose Route Start Last Admin Trade Name Freq PRN Reason Stop Dose Admin Hydrocodone Bitart/Acetaminophen 1 tab 05/19/21 01:47 Hydrocodone/Acetaminophen (*Crx) 10-325 Mg Tablet PO Q6H PRN Pain Rated 7-10 Albuterol 2 puff 05/19/21 02:00 05/23/21 13:40 Albuterol Sulfate (*Sp) Aerosol 1 Puff INHALATION 2 puff Q6HRT LOKESH Administration Allopurinol 100 mg 05/19/21 21:00 05/22/21 20:40 Allopurinol 100 Mg Tablet PO 100 mg HS LOKESH Administration Amlodipine Besylate 5 mg 05/19/21 09:00 05/23/21 09:37 Amlodipine Besylate 5 Mg Tablet PO 5 mg DAILY LOKESH Administration Apixaban 2.5 mg 05/19/21 09:00 05/23/21 09:37
--- NOTE | 2021-05-23 12:46 | PM.PNNEP ---
Progress Note: A&P Assessment and Plan (1) End stage renal disease: Code(s): N18.6 - End stage renal disease Status: Chronic Assessment and Plan: HD yesterday and continue dialysis 3x/week outpatient dialysis unit = [facility] primary manager of environmental services = Dr. Blackman follow electrolytes, volume status, and clearance (2) Acute respiratory failure with hypoxia: Code(s): J96.01 - Acute respiratory failure with hypoxia Status: Acute Assessment and Plan: due to COVID-19 noted to be hypoxic on admission supplemental oxygen PRN follow respiratory status (3) Pneumonia due to COVID-19 virus: Code(s): U07.1 - COVID-19; J12.82 - Pneumonia due to coronavirus disease 2018 Status: Acute Assessment and Plan: noted positive testing at [place] [facility] consider remdesivir; on steroids at this time possible bacterial pneumonia as well - on antibiotics follow inflammatory markers (4) Hypertension: Code(s): I10 - Essential (primary) hypertension Status: Chronic Assessment and Plan: reasonable control at this time follow trend of hemodynamics (5) Anemia: Code(s): D64.9 - Anemia, unspecified Status: Chronic Assessment and Plan: due to ESRD Epogen with HD follow trend of H/H Will continue to follow. Subjective Date/time seen: 05/23/21 12:46 Respiratory status appear relatively stable at this time; tolerated dialysis treatment yesterday wihout any issues or problems; no apparent distress noted; no issues/events overnight or earlier this AM. Exam Narrative: General: ill appearing AA male in NAD Heart: normal S1 and S2; no rub Lungs: clear anteriorly; coarse at bases Abdomen: soft, nontender, nondistended, positive bowel sounds Extremities: no cyanosis or clubbing; no edema Skin: no rash or nodules Objective Data Vital Signs Vital Signs: Vital Signs Temp Pulse Resp BP Pulse Ox 05/23/21 11:56 36.3 C L 70 16 141/59 H 98 05/23/21 08:00 35.9 C L 65 16 153/50 H 98 05/23/21 03:47 36.6 C 54 L 16 148/53 H 100 05/22/21 23:59 36.1 C L 72 16 156/62 H 98 05/22/21 23:10 97 05/22/21 20:00 36.2 C L 64 16 123/53 L 98 Intake/Output Intake/Output: Intake & Output 05/20/21 05/21/21 05/22/21 05/23/21 23:59 23:59 23:59 23:59 Intake Total 1080 1170 3000 600 Output Total 2500 Balance 1080 1170 500 600 Meds/Results Medications: Active Medications Generic Name Dose Route Start Last Admin Trade Name Freq PRN Reason Stop Dose Admin Hydrocodone Bitart/Acetaminophen 1 tab 05/19/21 01:47 Hydrocodone/Acetaminophen (*Crx) 10-325 Mg Tablet PO Q6H PRN Pain Rated 7-10 Albuterol 2 puff 05/19/21 02:00 05/23/21 13:40 Albuterol Sulfate (*Sp) Aerosol 1 Puff INHALATION 2 puff Q6HRT LOKESH Administration Allopurinol 100 mg 05/19/21 21:00 05/22/21 20:40 Allopurinol 100 Mg Tablet PO 100 mg HS LOKESH Administration Amlodipine Besylate 5 mg 05/19/21 09:00 05/23/21 09:37 Amlodipine Besylate 5 Mg Tablet PO 5 mg DAILY LOKESH Administration Apixaban 2.5 mg 05/19/21 09:00 05/23/21 09:37 Apixaban 2.5 Mg Tablet PO 2.5 mg BID LOKESH Administration Atorvastatin Calcium 20 mg 05/19/21 21:00 05/22/21 20:40 Atorvastatin 20 Mg Tablet PO 20 mg HS LOKESH Administration Dexamethasone Sodium Phosphate 6 mg 05/19/21 09:00 05/23/21 09:37 Dexamethasone Sod Phos Inj 10 Mg/Ml 1 Ml Vial IV PUSH 05/28/21 09:01 6 mg DAILY LOKESH Administration Diltiazem HCl 120 mg 05/19/21 09:00 05/23/21 09:37 Diltiazem Hcl Cd 120 Mg Cap.Sa.24h PO 120 mg DAILY LOKESH Administration Furosemide 80 mg 05/19/21 09:00 05/23/21 09:37 Furosemide 80 Mg Tablet PO 80 mg BID LOKESH Administration Azithromycin 500 mg in 250 mls @ 250 mls/hr 05/19/21 03:00 05/23/21 16:10 Zithromax IVPB Infused DAILY@2200 LOKESH Infusion Ceftriaxone Sodium 2 gm/ 100
[2021-05-23] MEDS: cefTRIAXone 2 GM in SODIUM CHLORIDE 0.9% IV 100 ML 200 ML IVPB (13:53)
[2021-05-23 14:30] LABS: Ferritin > 2000.00 ng/mL (11.1-264)
--- NOTE | 2021-05-23 15:02 | PCOTNOTE ---
Patient refused treatment this session due to being too tiered attempted to educate on benefits of OT. Pt. continued to decline.
[2021-05-23 15:53] VITALS: BP 142/50; PULSE 62; RESP 16; TEMP 35.9; O2SAT 100
[2021-05-23 20:00] VITALS: BP 151/50; PULSE 68; RESP 18; TEMP 36.1; O2SAT 100; O2SAT 96
[2021-05-23] MEDS: allopurinoL 100 MG TABLET PO (21:17)
[2021-05-23] MEDS: rOPINIRole HCL 0.5 MG TABLET PO (21:17)
[2021-05-23] MEDS: ATORVASTATIN 20 MG TABLET PO (21:17)
[2021-05-23] MEDS: TAMSULOSIN HCL 0.4 MG CAPSULE PO (21:17)
[2021-05-23 21:34] VITALS: O2SAT 96
[2021-05-24] VITALS (24 sets, daily range): BP systolic 106–163; BP diastolic 46–81; PULSE 55–93; RESP 16–20; TEMP 36.3–37; O2SAT 93–100
[2021-05-24] MEDS: ALBUTEROL SULFATE (*SP) AEROSOL 1 PUFF 2 PUFF INHALATION ×3 (03:15→15:50)
[2021-05-24 03:42] LABS: Hepatitis B Core Ab Total Nonreactive (Nonreactive)
[2021-05-24 10:03] LABS: Basophils Percent Auto 0.2 % (0.2-1.2); Eosinophils Percent Auto 0.2 % (0-4.4); Hematocrit 28.3 % (42.0-52.0); Hemoglobin 9.4 g/dL (14.0-18.0); Immature Granulocyte Absolute 0.48 K/mm3 (0.00-0.031); Lymphocytes Absolute Auto 0.89 K/mm3 (0.9-3.2); Lymphocytes Percent Auto 7.4 % (18.3-44.2); Mean Corpuscular HGB Conc 33.2 g/dl (32-36); Mean Corpuscular Hemoglobin 33.1 pg (26-34); Mean Corpuscular Volume 99.6 fl (80-100); Mean Platelet Volume 10.2 fl (7.4-10.4); Monocytes Absolute Auto 0.7 K/mm3 (0.1-0.6); Monocytes Percent Auto 5.7 % (2.6-8.5); Neutrophils Absolute Auto 9.9 K/mm3 (1.3-6.7); Neutrophils Percent Auto 82.5 % (45.5-73.1); Nucleated Red Blood Cells Perc 0.2 % (0.0-0.2); Platelet Count Result 224 k/mm3 (150-375); Red Blood Count 2.84 M/mm3 (4.6-6.20); Red Cell Distribution Width 13.7 % (11.5-14.5); White Blood Count 12.1 K/mm3 (4.5-10.0)
[2021-05-24] MEDS: amLODIPine BESYLATE 5 MG TABLET PO (10:19)
[2021-05-24] MEDS: SEVELAMER CARBONATE 800 MG TABLET PO ×3 (10:19→17:36)
[2021-05-24] MEDS: FUROSEMIDE 80 MG TABLET PO ×2 (10:19→17:37)
[2021-05-24] MEDS: lisinopriL 5 MG TABLET PO (10:20)
[2021-05-24] MEDS: APIXABAN 2.5 MG TABLET PO ×2 (10:20→17:37)
--- NOTE | 2021-05-24 10:23 | PM.IMPN ---
Progress Note: A&P Assessment and Plan (1) Acute respiratory failure with hypoxia: Code(s): J96.01 - Acute respiratory failure with hypoxia Status: Acute Assessment and Plan: Likely secondary to pneumonia Patient placed on supplemental oxygen Multifactorial secondary to bacterial pneumonia complicating COVID-19 pneumonia Leukocytosis worsened (2) Multilobar lung infiltrate: Code(s): R91.8 - Other nonspecific abnormal finding of lung field Status: Acute Assessment and Plan: Rocephin and Zithromax reviewed chest x-ray CBC CRP procalcitonin ferritin monitor Will consider CT scan of the chest in a.m. if no improvement (3) Pneumonia due to COVID-19 virus: Code(s): U07.1 - COVID-19; J12.82 - Pneumonia due to coronavirus disease 2019 Status: Acute Assessment and Plan: Dexamethasone no remdesivir due to renal failure (4) End-stage renal disease on hemodialysis: Code(s): N18.6 - End stage renal disease; Z99.2 - Dependence on renal dialysis Status: Acute Assessment and Plan: Continue hemodialysis as needed Nephrology consult Acute hyponatremia nephrology following Subjective Date/time seen: 05/24/21 10:23 Interval history: Patient seen and examined Patient was admitted to the hospital with shortness of breath was found to have pneumonia probable bacterial pneumonia complicated COVID-19 pneumonia patient was treated with dexamethasone currently on 2 L of oxygen Patient on broad-spectrum IV antibiotics switch antibiotic to IV Rocephin and IV azithromycin as cultures not growing any bacteria Has episodes of hypothermia Ferritin is more than 2000 Leukocytosis worse today Will consider CT scan of the chest in a.m. if no improvement Patient feels weak Patient denies fever headache chest pain I am seeing the patient for shortness of breath Exam Narrative: Patient is comfortable, NAD, appears chronically ill HEENT: eyes are clear and none icteric LUNGS: normal respiratory effort ABD: not distended Lower extremities: no edema SKIN: nonjaundiced Neuro: grossly intact. Objective Data Vital Signs Vital Signs: Vital Signs - 24 hr 05/23/21 11:56 05/23/21 15:53 05/23/21 20:00 Temperature 97.4 F L 96.7 F L 96.9 F L Pulse Rate 70 62 68 Respiratory Rate 16 16 18 Blood Pressure 141/59 H 142/50 H 151/50 H Pulse Oximetry 98 100 96 05/23/21 21:34 05/24/21 00:00 05/24/21 04:00 Temperature 97.4 F L 97.4 F L Pulse Rate 56 L 70 Respiratory Rate 16 16 Blood Pressure 140/48 L 140/50 L Pulse Oximetry 96 98 97 05/24/21 08:00 05/24/21 09:32 Temperature 97.8 F Pulse Rate 79 Respiratory Rate 20 Blood Pressure 149/69 H Pulse Oximetry 98 93 Intake/Output Intake/Output: Intake & Output 05/21/21 05/22/21 05/23/21 05/24/21 23:59 23:59 23:59 23:59 Intake Total 1170 3000 610 800 Output Total 2500 Balance 1170 500 610 800 Meds/Results Medications: Active Medications Generic Name Dose Route Start Last Admin Trade Name Freq PRN Reason Stop Dose Admin Hydrocodone Bitart/Acetaminophen 1 tab 05/19/21 01:47 Hydrocodone/Acetaminophen (*Crx) 10-325 Mg Tablet PO Q6H PRN Pain Rated 7-10 Albuterol 2 puff 05/19/21 02:00 05/24/21 09:32 Albuterol Sulfate (*Sp) Aerosol 1 Puff INHALATION 2 puff Q6HRT LOKESH Administration Allopurinol 100 mg 05/19/21 21:00 05/23/21 21:17 Allopurinol 100 Mg Tablet PO 100 mg HS LOKESH Administration Amlodipine Besylate 5 mg 05/19/21 09:00 05/24/21 10:19 Amlodipine Besylate 5 Mg Tablet PO 5 mg DAILY LOKESH Administration Apixaban 2.5 mg 05/19/21 09:00 05/24/21 10:20 Apixaban 2.5 Mg Tablet PO 2.5 mg BID LOKESH Administration Atorvastatin Calcium 20 mg 05/19/21 21:00 05/23/21 21:17 Atorvastatin 20 Mg Tablet PO 20 mg HS LOKESH Administration Dexamethasone Sodium Phosphate 6 mg 05/19/21 09:00 05/24/21 10:20 Dexamethasone Sod Phos Inj 10 Mg/Ml 1 Ml Vi
[2021-05-24 10:43] LABS: Albumin Level 3.8 g/dL (3.5-5.1); Anion Gap 12 mmol/L (8-16); Blood Urea Nitrogen 62 mg/dL (9-20); Calcium 8.1 mg/dL (8.4-10.2); Carbon Dioxide 31 mmol/L (22-30); Chloride 89 mmol/L (98-107); Estimated CRCL calculation 5 ml/min; Estimated Glomerular Filt Rate 7; Glucose 133 mg/dL (65-110); Potassium 4.2 mmol/L (3.4-5.0); Sodium 132 mmol/L (137-145)
[2021-05-24] MEDS: cefTRIAXone 2 GM in SODIUM CHLORIDE 0.9% IV 100 ML 200 ML IVPB (12:23)
--- NOTE | 2021-05-24 14:09 | P.PNNP_ITS ---
Progress Note: A&P Assessment and Plan (1) End stage renal disease: Code(s): N18.6 - End stage renal disease Status: Chronic Assessment and Plan: * HD today and continue dialysis 3x/week * outpatient dialysis unit = [facility] * primary bundle tier and labeler = Dr. Blackman * follow electrolytes, volume status, and clearance (2) Acute respiratory failure with hypoxia: Code(s): J96.01 - Acute respiratory failure with hypoxia Status: Acute Assessment and Plan: * due to COVID-19 * noted to be hypoxic on admission * supplemental oxygen PRN * follow respiratory status (3) Pneumonia due to COVID-19 virus: Code(s): U07.1 - COVID-19; J12.82 - Pneumonia due to coronavirus disease 2018 Status: Acute Assessment and Plan: * noted positive testing at [facility] * consider remdesivir; on steroids at this time * possible bacterial pneumonia as well - on antibiotics * follow inflammatory markers (4) Hypertension: Code(s): I10 - Essential (primary) hypertension Status: Chronic Assessment and Plan: * reasonable control at this time * follow trend of hemodynamics (5) Anemia: Code(s): D64.9 - Anemia, unspecified Status: Chronic Assessment and Plan: * due to ESRD * Epogen with HD * follow trend of H/H Will continue to follow. Subjective Date/time seen: 05/24/21 14:09 No acute distress apparent on my visit; states he does feel somewhat weak; no other issues/event overnight or earlier this AM; underlying dementia make getting clear answers to questions somewhat difficult. Exam Narrative: General: ill appearing AA male in NAD Heart: normal S1 and S2; no rub Lungs: clear anteriorly; coarse at bases Abdomen: soft, nontender, nondistended, positive bowel sounds Extremities: no cyanosis or clubbing; no edema Skin: warm and dry Objective Data Vital Signs Vital Signs: Vital Signs Temp Pulse Resp BP Pulse Ox 05/24/21 12:00 36.5 C 64 20 153/63 H 100 05/24/21 10:15 93 05/24/21 09:32 93 05/24/21 08:00 36.6 C 79 20 149/69 H 98 05/24/21 04:00 36.3 C L 70 16 140/50 L 97 05/24/21 00:00 36.3 C L 56 L 16 140/48 L 98 05/23/21 21:34 96 05/23/21 20:00 36.1 C L 68 18 151/50 H 96 Intake/Output Intake/Output: Intake & Output 05/21/21 05/22/21 05/23/21 05/24/21 23:59 23:59 23:59 23:59 Intake Total 1170 3000 610 1300 Output Total 2500 Balance 1170 368 303 8408 Meds/Results Medications: Active Medications Generic Name Dose Route Start Last Admin Trade Name Freq PRN Reason Stop Dose Admin Hydrocodone Bitart/Acetaminophen 1 tab 05/19/21 01:47 Hydrocodone/Acetaminophen (*Crx) 10-325 Mg Tablet PO Q6H PRN Pain Rated 7-10 Albuterol 2 puff 05/19/21 02:00 05/24/21 15:50 Albuterol Sulfate (*Sp) Aerosol 1 Puff INHALATION 2 puff Q6HRT LOKESH Administration Allopurinol 100 mg 05/19/21 21:00 05/23/21 21:17 Allopurinol 100 Mg Tablet PO 100 mg HS LOKESH Administration Amlodipine Besylate 5 mg 05/19/21 09:00 05/24/21 10:19 Amlodipine Besylate 5 Mg Tablet PO 5 mg DAILY LOKESH Administration
--- NOTE | 2021-05-24 14:09 | PM.PNNEP ---
Progress Note: A&P Assessment and Plan (1) End stage renal disease: Code(s): N18.6 - End stage renal disease Status: Chronic Assessment and Plan: HD today and continue dialysis 3x/week outpatient dialysis unit = [facility] primary technical instructor course developer = Dr. Blackman follow electrolytes, volume status, and clearance (2) Acute respiratory failure with hypoxia: Code(s): J96.01 - Acute respiratory failure with hypoxia Status: Acute Assessment and Plan: due to COVID-19 noted to be hypoxic on admission supplemental oxygen PRN follow respiratory status (3) Pneumonia due to COVID-19 virus: Code(s): U07.1 - COVID-19; J12.82 - Pneumonia due to coronavirus disease 2018 Status: Acute Assessment and Plan: noted positive testing at [facility] consider remdesivir; on steroids at this time possible bacterial pneumonia as well - on antibiotics follow inflammatory markers (4) Hypertension: Code(s): I10 - Essential (primary) hypertension Status: Chronic Assessment and Plan: reasonable control at this time follow trend of hemodynamics (5) Anemia: Code(s): D64.9 - Anemia, unspecified Status: Chronic Assessment and Plan: due to ESRD Epogen with HD follow trend of H/H Will continue to follow. Subjective Date/time seen: 05/24/21 14:09 No acute distress apparent on my visit; states he does feel somewhat weak; no other issues/event overnight or earlier this AM; underlying dementia make getting clear answers to questions somewhat difficult. Exam Narrative: General: ill appearing AA male in NAD Heart: normal S1 and S2; no rub Lungs: clear anteriorly; coarse at bases Abdomen: soft, nontender, nondistended, positive bowel sounds Extremities: no cyanosis or clubbing; no edema Skin: warm and dry Objective Data Vital Signs Vital Signs: Vital Signs Temp Pulse Resp BP Pulse Ox 05/24/21 12:00 36.5 C 64 20 153/63 H 100 05/24/21 10:15 93 05/24/21 09:32 93 05/24/21 08:00 36.6 C 79 20 149/69 H 98 05/24/21 04:00 36.3 C L 70 16 140/50 L 97 05/24/21 00:00 36.3 C L 56 L 16 140/48 L 98 05/23/21 21:34 96 05/23/21 20:00 36.1 C L 68 18 151/50 H 96 Intake/Output Intake/Output: Intake & Output 05/21/21 05/22/21 05/23/21 05/24/21 23:59 23:59 23:59 23:59 Intake Total 1170 3000 610 1300 Output Total 2500 Balance 1170 274 757 [id number] Meds/Results Medications: Active Medications Generic Name Dose Route Start Last Admin Trade Name Freq PRN Reason Stop Dose Admin Hydrocodone Bitart/Acetaminophen 1 tab 05/19/21 01:47 Hydrocodone/Acetaminophen (*Crx) 10-325 Mg Tablet PO Q6H PRN Pain Rated 7-10 Albuterol 2 puff 05/19/21 02:00 05/24/21 15:50 Albuterol Sulfate (*Sp) Aerosol 1 Puff INHALATION 2 puff Q6HRT LOKESH Administration Allopurinol 100 mg 05/19/21 21:00 05/23/21 21:17 Allopurinol 100 Mg Tablet PO 100 mg HS LOKESH Administration Amlodipine Besylate 5 mg 05/19/21 09:00 05/24/21 10:19 Amlodipine Besylate 5 Mg Tablet PO 5 mg DAILY LOKESH Administration Apixaban 2.5 mg 05/19/21 09:00 05/24/21 17:37 Apixaban 2.5 Mg Tablet PO 2.5 mg BID LOKESH Administration Atorvastatin Calcium 20 mg 05/19/21 21:00 05/23/21 21:17 Atorvastatin 20 Mg Tablet PO 20 mg HS LOKESH Administration Dexamethasone Sodium Phosphate 6 mg 05/19/21 09:00 05/24/21 10:20 Dexamethasone Sod Phos Inj 10 Mg/Ml 1 Ml Vial IV PUSH 05/28/21 09:01 6 mg DAILY LOKESH Administration Diltiazem HCl 120 mg 05/19/21 09:00 05/24/21 10:20 Diltiazem Hcl Cd 120 Mg Cap.Sa.24h PO 120 mg DAILY LOKESH Administration Furosemide 80 mg 05/19/21 09:00 05/24/21 17:37 Furosemide 80 Mg Tablet PO 80 mg BID LOKESH Administration Azithromycin 500 mg in 250 mls @ 250 mls/hr 05/19/21 03:00 05/24/21 02:21 Zithromax IVPB Infused DAILY@2200 SC
--- NOTE | 2021-05-24 23:17 | PCRCNOTE ---
Patient is not in room and unavailable at this time.
[2021-05-24] MEDS: allopurinoL 100 MG TABLET PO (23:25)
[2021-05-24] MEDS: ATORVASTATIN 20 MG TABLET PO (23:25)
[2021-05-24] MEDS: rOPINIRole HCL 0.5 MG TABLET PO (23:25)
[2021-05-24] MEDS: TAMSULOSIN HCL 0.4 MG CAPSULE PO (23:25)
[2021-05-25] VITALS (9 sets, daily range): BP systolic 144–156; BP diastolic 47–60; PULSE 63–84; RESP 15–20; TEMP 36.1–36.9; O2SAT 94–100; BMI 23.6
[2021-05-25] MEDS: ALBUTEROL SULFATE (*SP) AEROSOL 1 PUFF 2 PUFF INHALATION ×4 (02:40→20:01)
[2021-05-25] MEDS: APIXABAN 2.5 MG TABLET PO ×2 (08:54→17:12)
[2021-05-25] MEDS: SEVELAMER CARBONATE 800 MG TABLET PO ×3 (08:54→17:12)
[2021-05-25] MEDS: FUROSEMIDE 80 MG TABLET PO ×2 (08:54→17:12)
[2021-05-25] MEDS: lisinopriL 5 MG TABLET PO (08:54)
[2021-05-25] MEDS: amLODIPine BESYLATE 5 MG TABLET PO (08:54)
[2021-05-25 09:06] LABS: Basophils Percent Auto 0.2 % (0.2-1.2); Eosinophils Percent Auto 0.1 % (0-4.4); Hematocrit 29.4 % (42.0-52.0); Hemoglobin 9.3 g/dL (14.0-18.0); Immature Granulocyte Absolute 0.53 K/mm3 (0.00-0.031); Immature Granulocyte Percent A 4.3 % (0-0.5); Lymphocytes Absolute Auto 0.76 K/mm3 (0.9-3.2); Lymphocytes Percent Auto 6.1 % (18.3-44.2); Mean Corpuscular HGB Conc 31.6 g/dl (32-36); Mean Corpuscular Hemoglobin 32.6 pg (26-34); Mean Corpuscular Volume 103.2 fl (80-100); Mean Platelet Volume 10.4 fl (7.4-10.4); Monocytes Absolute Auto 0.6 K/mm3 (0.1-0.6); Monocytes Percent Auto 5.1 % (2.6-8.5); Neutrophils Absolute Auto 10.4 K/mm3 (1.3-6.7); Neutrophils Percent Auto 84.2 % (45.5-73.1); Nucleated Red Blood Cells Absolute Auto 0.1 K/mm3 (0.0-0.012); Nucleated Red Blood Cells Perc 0.4 % (0.0-0.2); Platelet Count Result 253 k/mm3 (150-375); Red Blood Count 2.85 M/mm3 (4.6-6.20); Red Cell Distribution Width 13.9 % (11.5-14.5); White Blood Count 12.4 K/mm3 (4.5-10.0)
--- NOTE | 2021-05-25 11:52 | PM.IMPN ---
Progress Note: A&P Assessment and Plan (1) Acute respiratory failure with hypoxia: Code(s): J96.01 - Acute respiratory failure with hypoxia Status: Acute Assessment and Plan: Likely secondary to pneumonia Patient placed on supplemental oxygen Multifactorial secondary to bacterial pneumonia complicating COVID-[address] scan of the chest (2) Multilobar lung infiltrate: Code(s): R91.8 - Other nonspecific abnormal finding of lung field Status: Acute Assessment and Plan: Rocephin and Zithromax reviewed chest x-ray CBC CRP procalcitonin ferritin monitor Plan for CT scan of the chest today (3) Pneumonia due to COVID-19 virus: Code(s): U07.1 - COVID-19; J12.82 - Pneumonia due to coronavirus disease 2018 Status: Acute Assessment and Plan: Dexamethasone no remdesivir due to renal failure (4) End-stage renal disease on hemodialysis: Code(s): N18.6 - End stage renal disease; Z99.2 - Dependence on renal dialysis Status: Acute Assessment and Plan: Continue hemodialysis as needed Nephrology consult Acute hyponatremia nephrology following Subjective Date/time seen: 05/25/21 11:52 Interval history: Patient seen and examined Patient was admitted to the hospital with shortness of breath was found to have pneumonia probable bacterial pneumonia complicated COVID-19 pneumonia patient was treated with dexamethasone currently on 2 L of oxygen Patient on broad-spectrum IV antibiotics switch antibiotic to IV Rocephin and IV azithromycin as cultures not growing any bacteria Has episodes of hypothermia Ferritin is more than 2000 Still has leukocytosis Ferritin still elevated Patient still on oxygen At home patient was independent in daily living activities currently patient need bankruptcy legal assistant with activities I discussed with the nurse plan for PT evaluation and possible need for rehab Plan for CT scan of the chest today Patient feels weak Patient denies fever headache chest pain I am seeing the patient for shortness of breath Exam Narrative: Patient is comfortable, NAD, appears ill HEENT: eyes are clear and none icteric LUNGS: normal respiratory effort ABD: not distended Lower extremities: no edema SKIN: nonjaundiced Neuro: grossly intact. Objective Data Vital Signs Vital Signs: Vital Signs - 24 hr 05/24/21 12:00 05/24/21 16:00 05/24/21 18:55 Temperature 97.7 F 98.0 F 97.8 F Pulse Rate 64 93 73 Respiratory Rate 20 16 20 Blood Pressure 153/63 H 152/53 H 152/71 H Pulse Oximetry 100 100 05/24/21 19:21 05/24/21 19:30 05/24/21 19:45 Temperature Pulse Rate 78 74 73 Respiratory Rate Blood Pressure 161/77 H 149/64 H 134/75 Pulse Oximetry 05/24/21 20:00 05/24/21 20:15 05/24/21 20:20 Temperature Pulse Rate 70 73 Respiratory Rate Blood Pressure 156/58 H 134/72 Pulse Oximetry 94 05/24/21 20:30 05/24/21 21:00 05/24/21 21:15 Temperature Pulse Rate 81 78 76 Respiratory Rate Blood Pressure 163/81 H 128/55 L 152/62 H Pulse Oximetry 05/24/21 21:30 05/24/21 21:45 05/24/21 22:00 Temperature Pulse Rate 55 L 59 L 65 Respiratory Rate Blood Pressure 106/46 L 150/59 H 125/61 Pulse Oximetry 05/24/21 22:15 05/24/21 22:25 05/24/21 22:45 Temperature 97.6 F Pulse Rate 72 63 67 Respiratory Rate 16 Blood Pressure 120/47 L 146/62 H 142/65 H Pulse Oximetry 05/25/21 00:02 05/25/21 02:40 05/25/21 04:00 Temperature 97.6 F 97.7 F Pulse Rate 73 78 75 Respiratory Rate 16 20 15 Blood Pressure 155/60 H 144/55 H Pulse Oximetry 100 100 05/25/21 08:00 05/25/21 09:03 Temperature 98.5 F Pulse Rate 80 Respiratory Rate 16 Blood Pressure 153/47 H Pulse Oximetry 100 94 Intake/Output Intake/Output: Intake & Output 05/22/21 05/23/21 05/24/21 05/25/21 23:59 23:59 23:59 23:59 Intake Total 3000 610 1400 270 Output Total 2500 1800 Balance 500 610 -400 270 Meds/Results
[2021-05-25] MEDS: cefTRIAXone 2 GM in SODIUM CHLORIDE 0.9% IV 100 ML 200 ML IVPB (12:11)
[2021-05-25] MEDS: ACETAMINOPHEN 325 MG TABLET 650 MG PO (12:11)
--- NOTE | 2021-05-25 12:57 | PC.NURSE ---
to CT per bed
--- NOTE | 2021-05-25 13:06 | P.PNNP_ITS ---
Progress Note: A&P Assessment and Plan (1) End stage renal disease: Code(s): N18.6 - End stage renal disease Status: Chronic Assessment and Plan: * HD done yesterday. Will do tomorrow. * outpatient dialysis unit = [facility] * primary electrical engineering draftsperson = Dr. Blackman * Volume status looks okay. * Check chemistries tomorrow. (2) Acute respiratory failure with hypoxia: Code(s): J96.01 - Acute respiratory failure with hypoxia Status: Acute Assessment and Plan: * due to COVID-19 * noted to be hypoxic on admission * supplemental oxygen PRN * He is also on ceftriaxone and azithromycin in case there is a superimposed bacterial pneumonia. * follow respiratory status (3) Pneumonia due to COVID-19 virus: Code(s): U07.1 - COVID-19; J12.82 - Pneumonia due to coronavirus disease 2018 Status: Acute Assessment and Plan: * noted positive testing at [facility] * consider remdesivir; on steroids at this time * possible bacterial pneumonia as well - on antibiotics * follow inflammatory markers (4) Hypertension: Code(s): I10 - Essential (primary) hypertension Status: Chronic Assessment and Plan: * Systolic running 120-150. * He is on amlodipine and lisinopril for blood pressure control. He is also on diltiazem which he was on at home. Will stop amlodipine and use a higher dose of lisinopril. (5) Anemia: Code(s): D64.9 - Anemia, unspecified Status: Chronic Assessment and Plan: * due to ESRD * Epogen with HD * Hemoglobin 9.3. Will continue Epogen. Will continue to follow. Subjective Date/time seen: 05/25/21 13:06 Interval history: Generally weak. He says he has a cough and a little shortness of breath but not too bad. No headaches. He has been afebrile. Exam Narrative: General: ill appearing AA male in NAD Heart: normal S1 and S2; no rub or gallop Lungs: clear anteriorly; coarse at bases Abdomen: soft, nontender, nondistended, positive bowel sounds Extremities: no cyanosis or clubbing; no edema Skin: w No rash Objective Data Vital Signs Vital Signs: Vital Signs - 24 hr 05/24/21 16:00 05/24/21 18:55 05/24/21 19:21 Temperature 36.7 C 36.6 C Pulse Rate 93 73 78 Respiratory Rate 16 20 Blood Pressure 152/53 H 152/71 H 161/77 H Pulse Oximetry 100 05/24/21 19:30 05/24/21 19:45 05/24/21 20:00 Temperature Pulse Rate 74 73 Respiratory Rate Blood Pressure 149/64 H 134/75 Pulse Oximetry 94 05/24/21 20:15 05/24/21 20:20 05/24/21 20:30 Temperature Pulse Rate 70 73 81 Respiratory Rate Blood Pressure 156/58 H 134/72 163/81 H Pulse Oximetry 05/24/21 21:00 05/24/21 21:15 05/24/21 21:30 Temperature Pulse Rate 78 76 55 L Respiratory Rate Blood Pressure 128/55 L 152/62 H 106/46 L Pulse Oximetry 05/24/21 21:45 05/24/21 22:00 05/24/21 22:15 Temperature Pulse Rate 59 L 65 72 Respiratory Rate Blood Pressure 150/59 H 125/61 120/47 L Pulse Oximetry 05/24/21 22:25 05/24/21 22:45 05/25/21 00:02 Temperature 36
--- NOTE | 2021-05-25 13:06 | PM.PNNEP ---
Progress Note: A&P Assessment and Plan (1) End stage renal disease: Code(s): N18.6 - End stage renal disease Status: Chronic Assessment and Plan: HD done yesterday. Will do tomorrow. outpatient dialysis unit = [facility] primary community support associate = Dr. Blackman Volume status looks okay. Check chemistries tomorrow. (2) Acute respiratory failure with hypoxia: Code(s): J96.01 - Acute respiratory failure with hypoxia Status: Acute Assessment and Plan: due to COVID-19 noted to be hypoxic on admission supplemental oxygen PRN He is also on ceftriaxone and azithromycin in case there is a superimposed bacterial pneumonia. follow respiratory status (3) Pneumonia due to COVID-19 virus: Code(s): U07.1 - COVID-19; J12.82 - Pneumonia due to coronavirus disease 2018 Status: Acute Assessment and Plan: noted positive testing at [facility] consider remdesivir; on steroids at this time possible bacterial pneumonia as well - on antibiotics follow inflammatory markers (4) Hypertension: Code(s): I10 - Essential (primary) hypertension Status: Chronic Assessment and Plan: Systolic running 120-150. He is on amlodipine and lisinopril for blood pressure control. He is also on diltiazem which he was on at home. Will stop amlodipine and use a higher dose of lisinopril. (5) Anemia: Code(s): D64.9 - Anemia, unspecified Status: Chronic Assessment and Plan: due to ESRD Epogen with HD Hemoglobin 9.3. Will continue Epogen. Will continue to follow. Subjective Date/time seen: 05/25/21 13:06 Interval history: Generally weak. He says he has a cough and a little shortness of breath but not too bad. No headaches. He has been afebrile. Exam Narrative: General: ill appearing AA male in NAD Heart: normal S1 and S2; no rub or gallop Lungs: clear anteriorly; coarse at bases Abdomen: soft, nontender, nondistended, positive bowel sounds Extremities: no cyanosis or clubbing; no edema Skin: w No rash Objective Data Vital Signs Vital Signs: Vital Signs - 24 hr 05/24/21 16:00 05/24/21 18:55 05/24/21 19:21 Temperature 36.7 C 36.6 C Pulse Rate 93 73 78 Respiratory Rate 16 20 Blood Pressure 152/53 H 152/71 H 161/77 H Pulse Oximetry 100 05/24/21 19:30 05/24/21 19:45 05/24/21 20:00 Temperature Pulse Rate 74 73 Respiratory Rate Blood Pressure 149/64 H 134/75 Pulse Oximetry 94 05/24/21 20:15 05/24/21 20:20 05/24/21 20:30 Temperature Pulse Rate 70 73 81 Respiratory Rate Blood Pressure 156/58 H 134/72 163/81 H Pulse Oximetry 05/24/21 21:00 05/24/21 21:15 05/24/21 21:30 Temperature Pulse Rate 78 76 55 L Respiratory Rate Blood Pressure 128/55 L 152/62 H 106/46 L Pulse Oximetry 05/24/21 21:45 05/24/21 22:00 05/24/21 22:15 Temperature Pulse Rate 59 L 65 72 Respiratory Rate Blood Pressure 150/59 H 125/61 120/47 L Pulse Oximetry 05/24/21 22:25 05/24/21 22:45 05/25/21 00:02 Temperature 36.4 C 36.4 C Pulse Rate 63 67 73 Respiratory Rate 16 16 Blood Pressure 146/62 H 142/65 H 155/60 H Pulse Oximetry 100 05/25/21 02:40 05/25/21 04:00 05/25/21 08:00 Temperature 36.5 C 36.9 C Pulse Rate 78 75 80 Respiratory Rate 20 15 16 Blood Pressure 144/55 H 153/47 H Pulse Oximetry 100 100 05/25/21 09:03 05/25/21 10:30 05/25/21 12:00 Temperature 36.6 C Pulse Rate 65 Respiratory Rate 16 Blood Pressure 149/52 H Pulse Oximetry 94 98 98 Intake/Output Intake/Output: Intake & Output 05/22/21 05/23/21 05/24/21 05/25/21 23:59 23:59 23:59 23:59 Intake Total 3000 610 1400 270 Output Total 2500 1800 Balance 500 610 -400 270 Meds/Results Medications: Active Medications Generic Name Dose Route Start Last Admin Trade Name Freq PRN Reason Stop Dose Admin Acetaminophen 650 mg 05/25/21 10:22 05/25/21 12:11
[2021-05-25] MEDS: rOPINIRole HCL 0.5 MG TABLET PO (21:26)
[2021-05-25] MEDS: allopurinoL 100 MG TABLET PO (21:26)
[2021-05-25] MEDS: ATORVASTATIN 20 MG TABLET PO (21:26)
[2021-05-25] MEDS: TAMSULOSIN HCL 0.4 MG CAPSULE PO (21:26)
[2021-05-26] VITALS (16 sets, daily range): BP systolic 94–179; BP diastolic 38–71; PULSE 63–80; RESP 16–20; TEMP 36.3–37; O2SAT 95–100
[2021-05-26] MEDS: ALBUTEROL SULFATE (*SP) AEROSOL 1 PUFF 2 PUFF INHALATION ×4 (02:04→20:05)
[2021-05-26 07:43] LABS: Basophils Percent Auto 0.2 % (0.2-1.2); Eosinophils Percent Auto 0.2 % (0-4.4); Hematocrit 32.9 % (42.0-52.0); Hemoglobin 10.4 g/dL (14.0-18.0); Immature Granulocyte Absolute 0.29 K/mm3 (0.00-0.031); Immature Granulocyte Percent A 2.2 % (0-0.5); Lymphocytes Absolute Auto 0.96 K/mm3 (0.9-3.2); Lymphocytes Percent Auto 7.4 % (18.3-44.2); Mean Corpuscular HGB Conc 31.6 g/dl (32-36); Mean Corpuscular Hemoglobin 33.3 pg (26-34); Mean Corpuscular Volume 105.4 fl (80-100); Mean Platelet Volume 10.2 fl (7.4-10.4); Monocytes Absolute Auto 0.7 K/mm3 (0.1-0.6); Platelet Count Result 240 k/mm3 (150-375); Red Blood Count 3.12 M/mm3 (4.6-6.20)
[2021-05-26 08:10] LABS: Albumin Level 4.3 g/dL (3.5-5.1); Anion Gap 10 mmol/L (8-16); Blood Urea Nitrogen 47 mg/dL (9-20); Calcium 8.8 mg/dL (8.4-10.2); Carbon Dioxide 25 mmol/L (22-30); Chloride 99 mmol/L (98-107); Estimated CRCL calculation 6 ml/min; Estimated Glomerular Filt Rate 9; Glucose 107 mg/dL (65-110); Phosphorus 3.9 mg/dL (2.5-4.5); Potassium 4.9 mmol/L (3.4-5.0); Sodium 134 mmol/L (137-145)
[2021-05-26] MEDS: amLODIPine BESYLATE 5 MG TABLET PO (09:34)
[2021-05-26] MEDS: SEVELAMER CARBONATE 800 MG TABLET PO ×3 (09:34→20:23)
[2021-05-26] MEDS: FUROSEMIDE 80 MG TABLET PO ×2 (09:34→20:23)
[2021-05-26] MEDS: APIXABAN 2.5 MG TABLET PO ×2 (09:35→20:23)
[2021-05-26] MEDS: lisinopriL 5 MG TABLET PO (09:35)
[2021-05-26 11:26] LABS: Ferritin > 2000.00 ng/mL (11.1-264)
[2021-05-26] MEDS: cefTRIAXone 2 GM in SODIUM CHLORIDE 0.9% IV 100 ML 200 ML IVPB (13:24)
--- NOTE | 2021-05-26 15:55 | PC.NURSE ---
To dialysis via bed.
--- NOTE | 2021-05-26 16:24 | PM.IMPN ---
Progress Note: A&P Assessment and Plan (1) Acute respiratory failure with hypoxia: Code(s): J96.01 - Acute respiratory failure with hypoxia Status: Acute Assessment and Plan: Likely secondary to pneumonia COVID positive Multifactorial secondary to bacterial pneumonia complicating COVID-[address] scan of the chest with patchy bilateral airspace disease 05/25/2021 possible cor COVID versus bacterial pneumonia Procalcitonin was high at 3.3 suggestive of bacterial involvement (2) Multilobar lung infiltrate: Code(s): R91.8 - Other nonspecific abnormal finding of lung field Status: Acute Assessment and Plan: Rocephin and Zithromax reviewed chest x-ray CBC CRP procalcitonin ferritin monitor CT scan reviewed (3) Pneumonia due to COVID-19 virus: Code(s): U07.1 - COVID-19; J12.82 - Pneumonia due to coronavirus disease 2018 Status: Acute Assessment and Plan: Dexamethasone, no remdesivir due to renal failure (4) End-stage renal disease on hemodialysis: Code(s): N18.6 - End stage renal disease; Z99.2 - Dependence on renal dialysis Status: Acute Assessment and Plan: Continue hemodialysis as needed Nephrology consult Acute hyponatremia nephrology following (5) Acute encephalopathy: Code(s): G93.40 - Encephalopathy, unspecified Status: Acute Assessment and Plan: On admission, CT head on 05/18/2021 with areas of prior infarction without acute intracranial abnormality and age-related findings Slowly improving Has underlying history of dementia (6) Anemia: Code(s): D64.9 - Anemia, unspecified Status: Chronic Assessment and Plan: No signs of bleeding hemoglobin stable (7) Hypertension: Code(s): I10 - Essential (primary) hypertension Status: Chronic Assessment and Plan: Slightly elevated continue to monitor and continue current medication Additional Plan DVT prophylaxis on Eliquis Code status full code Subjective Date/time seen: 05/26/21 16:24 Interval history: Patient was admitted to the hospital with shortness of breath was found to have pneumonia probable bacterial pneumonia complicated COVID-19 pneumonia patient was treated with dexamethasone Patient on broad-spectrum IV antibiotics switch antibiotic to IV Rocephin and IV azithromycin as cultures not growing any bacteria Has episodes of hypothermia Ferritin is more than 2000 Still has leukocytosis Ferritin still elevated Patient still on oxygen At home patient was independent in daily living activities currently patient need temporary administrative assistant with activities 05/26/2021 no overnight events. Patient confused but conversant nursing staff notes much more conversive than before. Remains on 2 L oxygen denies any shortness of breath cough present. Review of Systems Review of Systems: All systems reviewed & are unremarkable except as noted in HPI and below Exam Narrative: Patient is comfortable, NAD, appears ill HEENT: eyes are clear and none icteric LUNGS: normal respiratory effort coarse breath sounds bilaterally no wheezes ABD: not distended soft nontender nondistended Lower extremities: no edema no cyanosis or clubbing SKIN: nonjaundiced Neuro: No facial asymmetry alert and awake conversant oriented to self and place moving all his extremities no gross motor deficits noted slow to respond Objective Data Vital Signs Vital Signs: Vital Signs - 24 hr 05/25/21 18:10 05/25/21 20:00 05/26/21 02:03 Temperature 97.0 F L 97.1 F L Pulse Rate 63 64 80 Respiratory Rate 18 20 20 Blood Pressure 147/50 H 156/54 H Pulse Oximetry 100 100 05/26/21 04:00 05/26/21 09:30 05/26/21 10:50 Temperature 97.6 F 98.2 F Pulse Rate 69 71 Respiratory Rate 20 20 Blood Pressure 179/61 H 146/53 H Pulse Oximetry 100 95 98 05/26/21 15:10 Temperature 98.3 F Pulse Rate 65 Respiratory Rate 16 Blood Pressure 143/56 H Pulse Oximetry 96 Intake/
[2021-05-26] MEDS: ATORVASTATIN 20 MG TABLET PO (20:26)
[2021-05-26] MEDS: rOPINIRole HCL 0.5 MG TABLET PO (20:26)
[2021-05-26] MEDS: TAMSULOSIN HCL 0.4 MG CAPSULE PO (20:26)
[2021-05-26] MEDS: allopurinoL 100 MG TABLET PO (20:27)
[2021-05-27] VITALS (7 sets, daily range): BP systolic 132–148; BP diastolic 44–59; PULSE 53–75; RESP 12–20; TEMP 36.2–36.6; O2SAT 93–100
[2021-05-27] MEDS: ALBUTEROL SULFATE (*SP) AEROSOL 1 PUFF 2 PUFF INHALATION ×3 (02:01→21:41)
--- NOTE | 2021-05-27 07:59 | P.PNNP_ITS ---
Progress Note: A&P Assessment and Plan (1) End stage renal disease: Code(s): N18.6 - End stage renal disease Status: Chronic Assessment and Plan: * HD done yesterday. Will do Friday * outpatient dialysis unit = [facility] * primary grade and center marker = Dr. Blackman * Volume status looks okay. * Labs pending (2) Acute respiratory failure with hypoxia: Code(s): J96.01 - Acute respiratory failure with hypoxia Status: Acute Assessment and Plan: * due to COVID-19 * noted to be hypoxic on admission * supplemental oxygen PRN * He is also on ceftriaxone and azithromycin in case there is a superimposed bacterial pneumonia. * follow respiratory status (3) Pneumonia due to COVID-19 virus: Code(s): U07.1 - COVID-19; J12.82 - Pneumonia due to coronavirus disease 2018 Status: Acute Assessment and Plan: * noted positive testing at [facility] * consider remdesivir; on steroids at this time * possible bacterial pneumonia as well - on antibiotics * follow inflammatory markers (4) Hypertension: Code(s): I10 - Essential (primary) hypertension Status: Chronic Assessment and Plan: * Systolic running 100-150. * He is on amlodipine and lisinopril for blood pressure control. He is also on diltiazem which he was on at home. * Amlodipine is being stopped and lisinopril is being increased. (5) Anemia: Code(s): D64.9 - Anemia, unspecified Status: Chronic Assessment and Plan: * due to ESRD * Epogen with HD * Hemoglobin 9.3. Will continue Epogen. Will continue to follow. Subjective Date/time seen: 05/27/21 07:59 Interval history: Generally weak. Still has some shortness of breath and cough. Still on oxygen. He had dialysis yesterday and did well. Eating okay and bowels okay Exam Narrative: General: ill appearing AA male in NAD Heart: normal S1 and S2; no rub Lungs: clear anteriorly; coarse at bases Abdomen: soft, nontender, nondistended, positive bowel sounds Extremities: no cyanosis or clubbing; no edema Skin: w No rash Objective Data Vital Signs Vital Signs: Vital Signs - 24 hr 05/26/21 09:30 05/26/21 10:50 05/26/21 15:10 Temperature 36.8 C 36.8 C Pulse Rate 71 65 Respiratory Rate 20 16 Blood Pressure 146/53 H 143/56 H Pulse Oximetry 95 98 96 05/26/21 15:55 05/26/21 16:18 05/26/21 16:30 Temperature 36.6 C Pulse Rate 65 63 64 Respiratory Rate 20 Blood Pressure 161/69 H 158/66 H 156/71 H Pulse Oximetry 05/26/21 17:00 05/26/21 17:30 05/26/21 18:00 Temperature Pulse Rate 74 66 64 Respiratory Rate Blood Pressure 141/65 H 100/38 L 94/42 L Pulse Oximetry 05/26/21 18:30 05/26/21 19:00 05/26/21 19:15 Temperature Pulse Rate 67 74 80 Respiratory Rate Blood Pressure 125/46 L 105/52 L 134/41 L Pulse Oximetry 05/26/21 19:27 05/26/21 20:00 05/27/21 00:00 Temperature 36.8 C 36.3 C L 36.3 C L Pulse Rate 79 73 66 Respiratory Rate 20 16 20 Blood Pressure 155/66 H 116/71 141/53 H Pulse Oximetry 100 100 05/27/21 04:00 Naila
--- NOTE | 2021-05-27 07:59 | PM.PNNEP ---
Progress Note: A&P Assessment and Plan (1) End stage renal disease: Code(s): N18.6 - End stage renal disease Status: Chronic Assessment and Plan: HD done yesterday. Will do Friday outpatient dialysis unit = [facility] primary manager contract = Dr. Blackman Volume status looks okay. Labs pending (2) Acute respiratory failure with hypoxia: Code(s): J96.01 - Acute respiratory failure with hypoxia Status: Acute Assessment and Plan: due to COVID-19 noted to be hypoxic on admission supplemental oxygen PRN He is also on ceftriaxone and azithromycin in case there is a superimposed bacterial pneumonia. follow respiratory status (3) Pneumonia due to COVID-19 virus: Code(s): U07.1 - COVID-19; J12.82 - Pneumonia due to coronavirus disease 2018 Status: Acute Assessment and Plan: noted positive testing at [place] [facility] consider remdesivir; on steroids at this time possible bacterial pneumonia as well - on antibiotics follow inflammatory markers (4) Hypertension: Code(s): I10 - Essential (primary) hypertension Status: Chronic Assessment and Plan: Systolic running 100-150. He is on amlodipine and lisinopril for blood pressure control. He is also on diltiazem which he was on at home. Amlodipine is being stopped and lisinopril is being increased. (5) Anemia: Code(s): D64.9 - Anemia, unspecified Status: Chronic Assessment and Plan: due to ESRD Epogen with HD Hemoglobin 9.3. Will continue Epogen. Will continue to follow. Subjective Date/time seen: 05/27/21 07:59 Interval history: Generally weak. Still has some shortness of breath and cough. Still on oxygen. He had dialysis yesterday and did well. Eating okay and bowels okay Exam Narrative: General: ill appearing AA male in NAD Heart: normal S1 and S2; no rub Lungs: clear anteriorly; coarse at bases Abdomen: soft, nontender, nondistended, positive bowel sounds Extremities: no cyanosis or clubbing; no edema Skin: w No rash Objective Data Vital Signs Vital Signs: Vital Signs - 24 hr 05/26/21 09:30 05/26/21 10:50 05/26/21 15:10 Temperature 36.8 C 36.8 C Pulse Rate 71 65 Respiratory Rate 20 16 Blood Pressure 146/53 H 143/56 H Pulse Oximetry 95 98 96 05/26/21 15:55 05/26/21 16:18 05/26/21 16:30 Temperature 36.6 C Pulse Rate 65 63 64 Respiratory Rate 20 Blood Pressure 161/69 H 158/66 H 156/71 H Pulse Oximetry 05/26/21 17:00 05/26/21 17:30 05/26/21 18:00 Temperature Pulse Rate 74 66 64 Respiratory Rate Blood Pressure 141/65 H 100/38 L 94/42 L Pulse Oximetry 05/26/21 18:30 05/26/21 19:00 05/26/21 19:15 Temperature Pulse Rate 67 74 80 Respiratory Rate Blood Pressure 125/46 L 105/52 L 134/41 L Pulse Oximetry 05/26/21 19:27 05/26/21 20:00 05/27/21 00:00 Temperature 36.8 C 36.3 C L 36.3 C L Pulse Rate 79 73 66 Respiratory Rate 20 16 20 Blood Pressure 155/66 H 116/71 141/53 H Pulse Oximetry 100 100 05/27/21 04:00 Temperature 36.4 C Pulse Rate 75 Respiratory Rate 18 Blood Pressure 138/51 L Pulse Oximetry 100 Intake/Output Intake/Output: Intake & Output 05/24/21 05/25/21 05/26/21 05/27/21 23:59 23:59 23:59 23:59 Intake Total 1400 980 320 250 Output Total 1800 0 1825 0 Balance -400 980 -1505 250 Meds/Results Medications: Active Medications Generic Name Dose Route Start Last Admin Trade Name Freq PRN Reason Stop Dose Admin Acetaminophen 650 mg 05/25/21 10:22 05/25/21 12:11 Acetaminophen 325 Mg Tablet PO 650 mg Q6H PRN Administration Mild Pain (1-3) or Fever Hydrocodone Bitart/Acetaminophen 1 tab 05/19/21 01:47 Hydrocodone/Acetaminophen (*Crx) 10-325 Mg Tablet PO Q6H PRN Pain Rated 7-10 Albuterol 2 puff 05/19/21 02:00 05/27/21 02:01 Albuterol Sulfate (*Sp) Aerosol 1 Puff INHALATION 2 puff Q6HRT [facility]
[2021-05-27] MEDS: APIXABAN 2.5 MG TABLET PO ×2 (09:27→18:25)
[2021-05-27] MEDS: SEVELAMER CARBONATE 800 MG TABLET PO ×3 (09:28→18:25)
[2021-05-27] MEDS: lisinopriL 10 MG TABLET PO (09:28)
[2021-05-27] MEDS: FUROSEMIDE 80 MG TABLET PO ×2 (09:28→18:24)
[2021-05-27 09:52] LABS: Basophils Percent Auto 0.1 % (0.2-1.2); Eosinophils Percent Auto 0.4 % (0-4.4); Hematocrit 29.5 % (42.0-52.0); Hemoglobin 9.3 g/dL (14.0-18.0); Immature Granulocyte Absolute 0.25 K/mm3 (0.00-0.031); Immature Granulocyte Percent A 2.4 % (0-0.5); Lymphocytes Absolute Auto 0.97 K/mm3 (0.9-3.2); Lymphocytes Percent Auto 9.2 % (18.3-44.2); Mean Corpuscular HGB Conc 31.5 g/dl (32-36); Mean Corpuscular Hemoglobin 32.9 pg (26-34); Mean Corpuscular Volume 104.2 fl (80-100); Monocytes Absolute Auto 0.6 K/mm3 (0.1-0.6); Monocytes Percent Auto 5.4 % (2.6-8.5); Neutrophils Absolute Auto 8.7 K/mm3 (1.3-6.7); Neutrophils Percent Auto 82.5 % (45.5-73.1); Platelet Count Result 196 k/mm3 (150-375); Red Blood Count 2.83 M/mm3 (4.6-6.20); Red Cell Distribution Width 14.4 % (11.5-14.5); White Blood Count 10.5 K/mm3 (4.5-10.0)
[2021-05-27 10:17] LABS: Alanine Aminotransferase 19 U/L (4-50); Albumin Level 3.6 g/dL (3.5-5.1); Alkaline Phosphatase 60 U/L (38-126); Anion Gap 6 mmol/L (8-16); Aspartate Amino Transferase 20 U/L (17-59); Bilirubin,Total 0.3 mg/dL (0.2-1.3); Blood Urea Nitrogen 26 mg/dL (9-20); Calcium 8.7 mg/dL (8.4-10.2); Carbon Dioxide 28 mmol/L (22-30); Chloride 102 mmol/L (98-107); Estimated CRCL calculation 9 ml/min; Estimated Glomerular Filt Rate 14; Glucose 190 mg/dL (65-110); Sodium 136 mmol/L (137-145)
--- NOTE | 2021-05-27 16:27 | PM.IMPN ---
Progress Note: A&P Assessment and Plan (1) Acute respiratory failure with hypoxia: Code(s): J96.01 - Acute respiratory failure with hypoxia Status: Acute Assessment and Plan: Likely secondary to pneumonia COVID positive Multifactorial secondary to bacterial pneumonia complicating COVID-[address] scan of the chest with patchy bilateral airspace disease 05/25/2021 possible COVID versus bacterial pneumonia Procalcitonin was high at 3.3 suggestive of bacterial involvement On ceftriaxone and azithromycin. Will discontinue azithromycin as already completed 5 days course Will get home oxygen evaluation done in a.m. (2) Multilobar lung infiltrate: Code(s): R91.8 - Other nonspecific abnormal finding of lung field Status: Acute Assessment and Plan: Rocephin and Zithromax reviewed chest x-ray CBC CRP procalcitonin ferritin monitor CT scan reviewed (3) Pneumonia due to COVID-19 virus: Code(s): U07.1 - COVID-19; J12.82 - Pneumonia due to coronavirus disease 2018 Status: Acute Assessment and Plan: Dexamethasone, no remdesivir due to renal failure (4) End-stage renal disease on hemodialysis: Code(s): N18.6 - End stage renal disease; Z99.2 - Dependence on renal dialysis Status: Acute Assessment and Plan: Continue hemodialysis as needed Nephrology consult Acute hyponatremia nephrology following (5) Acute encephalopathy: Code(s): G93.40 - Encephalopathy, unspecified Status: Acute Assessment and Plan: On admission, CT head on 05/18/2021 with areas of prior infarction without acute intracranial abnormality and age-related findings Slowly improving Has underlying history of dementia (6) Anemia: Code(s): D64.9 - Anemia, unspecified Status: Chronic Assessment and Plan: No signs of bleeding hemoglobin stable (7) Hypertension: Code(s): I10 - Essential (primary) hypertension Status: Chronic Assessment and Plan: Slightly elevated continue to monitor and continue current medication Additional Plan DVT prophylaxis on Eliquis Code status full code Subjective Date/time seen: 05/27/21 16:27 Interval history: Patient was admitted to the hospital with shortness of breath was found to have pneumonia probable bacterial pneumonia complicated COVID-19 pneumonia patient was treated with dexamethasone Patient on broad-spectrum IV antibiotics switch antibiotic to IV Rocephin and IV azithromycin as cultures not growing any bacteria Has episodes of hypothermia Ferritin is more than 2000 Still has leukocytosis Ferritin still elevated Patient still on oxygen At home patient was independent in daily living activities currently patient need pediatric assistant with activities 05/26/2021 no overnight events. Patient confused but conversant nursing staff notes much more conversive than before. Remains on 2 L oxygen denies any shortness of breath cough present. 05/27/2021 no overnight events. Patient much more conversant. Shortness of breath on exertion persists, denies any chest pain. Review of Systems Review of Systems: All systems reviewed & are unremarkable except as noted in HPI and below Exam Narrative: Patient is comfortable, NAD, appears ill HEENT: eyes are clear and none icteric LUNGS: normal respiratory effort coarse breath sounds bilaterally no wheezes ABD: not distended soft nontender nondistended Lower extremities: no edema no cyanosis or clubbing SKIN: nonjaundiced Neuro: No facial asymmetry alert and awake conversant oriented to self and place moving all his extremities no gross motor deficits noted slow to respond Objective Data Vital Signs Vital Signs: Vital Signs - 24 hr 05/26/21 16:30 05/26/21 17:00 05/26/21 17:30 Temperature Pulse Rate 64 74 66 Respiratory Rate Blood Pressure 156/71 H 141/65 H 100/38 L Pulse Oximetry 05/26/21 18:00 05/26/21 18:30 05/26/21 19:00 Temperature
[2021-05-27] MEDS: ATORVASTATIN 20 MG TABLET PO (20:43)
[2021-05-27] MEDS: allopurinoL 100 MG TABLET PO (20:43)
[2021-05-27] MEDS: rOPINIRole HCL 0.5 MG TABLET PO (20:43)
[2021-05-27] MEDS: TAMSULOSIN HCL 0.4 MG CAPSULE PO (20:43)
[2021-05-28] VITALS (10 sets, daily range): BP systolic 124–152; BP diastolic 44–54; PULSE 64–88; RESP 16–18; TEMP 36.3–36.7; O2SAT 86–100
--- NOTE | 2021-05-28 04:01 | PCRCNOTE ---
window of time for administration has passed. see next available administration.
[2021-05-28 07:23] LABS: Hematocrit 27.7 % (42.0-52.0); Hemoglobin 8.9 g/dL (14.0-18.0); Mean Corpuscular HGB Conc 32.1 g/dl (32-36); Mean Corpuscular Hemoglobin 32.8 pg (26-34); Mean Corpuscular Volume 102.2 fl (80-100); Mean Platelet Volume 9.8 fl (7.4-10.4); Platelet Count Result 183 k/mm3 (150-375); Red Blood Count 2.71 M/mm3 (4.6-6.20); Red Cell Distribution Width 14.2 % (11.5-14.5); White Blood Count 10.1 K/mm3 (4.5-10.0)
[2021-05-28 07:33] LABS: Alanine Aminotransferase 16 U/L (4-50); Albumin Level 3.4 g/dL (3.5-5.1); Alkaline Phosphatase 56 U/L (38-126); Anion Gap 4 mmol/L (8-16); Aspartate Amino Transferase 17 U/L (17-59); Bilirubin,Total 0.3 mg/dL (0.2-1.3); Blood Urea Nitrogen 42 mg/dL (9-20); Calcium 8.4 mg/dL (8.4-10.2); Carbon Dioxide 28 mmol/L (22-30); Chloride 101 mmol/L (98-107); Estimated CRCL calculation 7 ml/min; Estimated Glomerular Filt Rate 9; Glucose 118 mg/dL (65-110); Phosphorus 2.9 mg/dL (2.5-4.5); Potassium 4.1 mmol/L (3.4-5.0); Sodium 133 mmol/L (137-145)
[2021-05-28] MEDS: FUROSEMIDE 80 MG TABLET PO ×2 (08:27→17:30)
[2021-05-28] MEDS: lisinopriL 10 MG TABLET PO (08:27)
[2021-05-28] MEDS: APIXABAN 2.5 MG TABLET PO ×2 (08:27→17:30)
[2021-05-28] MEDS: SEVELAMER CARBONATE 800 MG TABLET PO ×2 (08:27→17:30)
[2021-05-28] MEDS: ALBUTEROL SULFATE (*SP) AEROSOL 1 PUFF 2 PUFF INHALATION ×3 (08:30→20:51)
--- NOTE | 2021-05-28 09:48 | P.PNNP_ITS ---
Progress Note: A&P Assessment and Plan (1) End stage renal disease: Code(s): N18.6 - End stage renal disease Status: Chronic Assessment and Plan: * HD due tomorrow * outpatient dialysis unit = [facility] * primary residential leasing manager = Dr. Blackman * Volume status looks okay. * potassium is okay. (2) Acute respiratory failure with hypoxia: Code(s): J96.01 - Acute respiratory failure with hypoxia Status: Acute Assessment and Plan: * due to COVID-19 * noted to be hypoxic on admission * supplemental oxygen PRN * Off antibacterials. * follow respiratory status (3) Pneumonia due to COVID-19 virus: Code(s): U07.1 - COVID-19; J12.82 - Pneumonia due to coronavirus disease 2018 Status: Acute Assessment and Plan: * noted positive testing at [place] [facility] * consider remdesivir; on steroids at this time * possible bacterial pneumonia as well - on antibiotics * follow inflammatory markers (4) Hypertension: Code(s): I10 - Essential (primary) hypertension Status: Chronic Assessment and Plan: * Systolic running 130s to 150s. * He is on Diltiazem and lisinopril. (5) Anemia: Code(s): D64.9 - Anemia, unspecified Status: Chronic Assessment and Plan: * due to ESRD * Epogen with HD * Hemoglobin 8.9. Will continue Epogen. Will continue to follow. Subjective Date/time seen: 05/28/21 09:48 Interval history: Generally weak. Breathing is better. Still on oxygen. He had dialysis Friday and is due tomorrow for his next treatment. Eating okay and bowels okay Exam Narrative: General: ill appearing AA male in NAD Heart: normal S1 and S2; no rub Lungs: clear anteriorly; coarse at bases Abdomen: soft, nontender, nondistended, positive bowel sounds Extremities: no cyanosis or clubbing; no edema Skin: No rash or subcu nodules Objective Data Vital Signs Vital Signs: Vital Signs - 24 hr 05/27/21 12:00 05/27/21 16:00 05/27/21 20:00 Temperature 36.4 C 36.2 C L 36.6 C Pulse Rate 71 59 L 53 L Respiratory Rate 16 18 18 Blood Pressure 144/59 H 132/46 L 142/44 H Pulse Oximetry 99 100 97 05/28/21 00:00 05/28/21 04:00 05/28/21 04:45 Temperature 36.7 C 36.3 C L Pulse Rate 69 70 Respiratory Rate 16 18 Blood Pressure 147/47 H 152/54 H Pulse Oximetry 95 100 95 Intake/Output Intake/Output: Intake & Output 05/25/21 05/26/21 05/27/21 05/28/21 23:59 23:59 23:59 23:59 Intake Total 980 320 740 150 Output Total 0 1825 0 125 Balance 980 -1505 740 25 Meds/Results Medications: Active Medications Generic Name Dose Route Start Last Admin Trade Name Freq PRN Reason Stop Dose Admin Acetaminophen 650 mg 05/25/21 10:22 05/25/21 12:11 Acetaminophen 325 Mg Tablet PO 650 mg Q6H PRN Administration Mild Pain (1-3) or Fever Hydrocodone Bitart/Acetaminophen 1 tab 05/19/21 01:47 Hydrocodone/Acetaminophen (*Crx) 10-325 Mg Tablet PO Q6H PRN Pain Rated 7-10 Albuterol 2 puff 05/19/21 02:00 05/28/21 08:30 Albuterol Sulfate (*Sp) Aerosol 1 Puff INHALATION 2 puff Q6HRT LOKESH Administration
--- NOTE | 2021-05-28 09:48 | PM.PNNEP ---
Progress Note: A&P Assessment and Plan (1) End stage renal disease: Code(s): N18.6 - End stage renal disease Status: Chronic Assessment and Plan: HD due tomorrow outpatient dialysis unit = [facility] primary environmental property assessor = Dr. Blackman Volume status looks okay. potassium is okay. (2) Acute respiratory failure with hypoxia: Code(s): J96.01 - Acute respiratory failure with hypoxia Status: Acute Assessment and Plan: due to COVID-19 noted to be hypoxic on admission supplemental oxygen PRN Off antibacterials. follow respiratory status (3) Pneumonia due to COVID-19 virus: Code(s): U07.1 - COVID-19; J12.82 - Pneumonia due to coronavirus disease 2018 Status: Acute Assessment and Plan: noted positive testing at [place] [facility] consider remdesivir; on steroids at this time possible bacterial pneumonia as well - on antibiotics follow inflammatory markers (4) Hypertension: Code(s): I10 - Essential (primary) hypertension Status: Chronic Assessment and Plan: Systolic running 130s to 150s. He is on Diltiazem and lisinopril. (5) Anemia: Code(s): D64.9 - Anemia, unspecified Status: Chronic Assessment and Plan: due to ESRD Epogen with HD Hemoglobin 8.9. Will continue Epogen. Will continue to follow. Subjective Date/time seen: 05/28/21 09:48 Interval history: Generally weak. Breathing is better. Still on oxygen. He had dialysis Friday and is due tomorrow for his next treatment. Eating okay and bowels okay Exam Narrative: General: ill appearing AA male in NAD Heart: normal S1 and S2; no rub Lungs: clear anteriorly; coarse at bases Abdomen: soft, nontender, nondistended, positive bowel sounds Extremities: no cyanosis or clubbing; no edema Skin: No rash or subcu nodules Objective Data Vital Signs Vital Signs: Vital Signs - 24 hr 05/27/21 12:00 05/27/21 16:00 05/27/21 20:00 Temperature 36.4 C 36.2 C L 36.6 C Pulse Rate 71 59 L 53 L Respiratory Rate 16 18 18 Blood Pressure 144/59 H 132/46 L 142/44 H Pulse Oximetry 99 100 97 05/28/21 00:00 05/28/21 04:00 05/28/21 04:45 Temperature 36.7 C 36.3 C L Pulse Rate 69 70 Respiratory Rate 16 18 Blood Pressure 147/47 H 152/54 H Pulse Oximetry 95 100 95 Intake/Output Intake/Output: Intake & Output 05/25/21 05/26/21 05/27/21 05/28/21 23:59 23:59 23:59 23:59 Intake Total 980 320 740 150 Output Total 0 1825 0 125 Balance 980 -1505 740 25 Meds/Results Medications: Active Medications Generic Name Dose Route Start Last Admin Trade Name Freq PRN Reason Stop Dose Admin Acetaminophen 650 mg 05/25/21 10:22 05/25/21 12:11 Acetaminophen 325 Mg Tablet PO 650 mg Q6H PRN Administration Mild Pain (1-3) or Fever Hydrocodone Bitart/Acetaminophen 1 tab 05/19/21 01:47 Hydrocodone/Acetaminophen (*Crx) 10-325 Mg Tablet PO Q6H PRN Pain Rated 7-10 Albuterol 2 puff 05/19/21 02:00 05/28/21 08:30 Albuterol Sulfate (*Sp) Aerosol 1 Puff INHALATION 2 puff Q6HRT LOKESH Administration Allopurinol 100 mg 05/19/21 21:00 05/27/21 20:43 Allopurinol 100 Mg Tablet PO 100 mg HS LOKESH Administration Apixaban 2.5 mg 05/19/21 09:00 05/28/21 08:27 Apixaban 2.5 Mg Tablet PO 2.5 mg BID LOKESH Administration Atorvastatin Calcium 20 mg 05/19/21 21:00 05/27/21 20:43 Atorvastatin 20 Mg Tablet PO 20 mg HS LOK[facility] Administration Diltiazem HCl 120 mg 05/19/21 09:00 05/28/21 08:27 Diltiazem Hcl Cd 120 Mg Cap.Sa.24h PO 120 mg DAILY LOKESH Administration Epoetin Bacilio-epbx 10,000 units 05/26/21 17:00 05/27/21 09:24 Epoetin Bacilio-Epbx 10,000 Units/Ml Vial IV PUSH Not Given TuThSa@1700 LOKESH Furosemide 80 mg 05/19/21 09:00 05/28/21 08:27 Furosemide 80 Mg Tablet PO 80 mg BID LOKESH Administration Albumin Human 50 mls @ 999 mls/hr 05/24/21 05:22
--- NOTE | 2021-05-28 10:12 | PCRTNOTE ---
HOME O2 EVAL COMPLETE, ROOM AIR AT REST AND 2 LITERS WITH ACTIVITY. PT'S FAMILY TO BRING IN TANK FOR DISCHARGE.
--- NOTE | 2021-05-28 13:48 | PCOTNOTE ---
Attempted to see patient this PM, patient asleep upon entry. Patient aroused enough to repeatedly say No when prompted with several options to achieve some level of participation from patient. Patient refusing all interventions, including from bed level. Will continue plan of care tomorrow, 05/29/21.
--- NOTE | 2021-05-28 16:02 | PCNFU ---
Nutrition Follow-Up Complete: [place] oral intake related to ARF w/hypoxia and COVID as evidenced by reported average intake of 6% Goal: Pt to meet 75% of estimated nutritional needs Pt is slowly progressing towards goal Pt current nutrition is soft and bite sized, L6/renal dialysis diet and dietary supplement Last recorded weight is 59.4 kg, down from 62.4kg on admit. Bowel Motility: No new BM reported Labs Reviewed: hgb 8.9, hct 27.7, alb 3.4, Na 133, GFR 9, BUN 42, Cr 6.9, Glu 118, ferritin >2000.00 Meds Noted: eliquis, cardizem, lasix, prinivil, renvela Skin: No new skin breakdown, WNL Additional Notes: Unable to visit with pt due to following covid precautions. Current nutrition is a soft and bite sized, L6/renal dialysis diet and dietary supplement of Nepro BID providing an additional 425kcal and 19g of protein to increase caloric intake. Reported intake is 25% x2, 10%, and 0%x2. Spoke to nursing who confirms reported intake and reports that pt has been drinking the dietary supplement. RDN placed orders to increase Nepro from BID to TID. Nursing has been notified and agrees to continue to encourage intake of diet and dietary supplements. Agree with diet orders at this time. Will continue to follow. Will monitor labs, medication, wt, and reported intake every 3 days
--- NOTE | 2021-05-28 16:43 | PM.IMPN ---
Progress Note: A&P Assessment and Plan (1) Acute respiratory failure with hypoxia: Code(s): J96.01 - Acute respiratory failure with hypoxia Status: Acute Assessment and Plan: Likely secondary to pneumonia COVID positive Multifactorial secondary to bacterial pneumonia complicating COVID-[address] scan of the chest with patchy bilateral airspace disease 05/25/2021 possible COVID versus bacterial pneumonia Procalcitonin was high at 3.3 suggestive of bacterial involvement On ceftriaxone and azithromycin. Will discontinue azithromycin as already completed 5 days course Slowly improving, rpt cxr estee (2) Multilobar lung infiltrate: Code(s): R91.8 - Other nonspecific abnormal finding of lung field Status: Acute Assessment and Plan: Rocephin and Zithromax reviewed chest x-ray CBC CRP procalcitonin ferritin monitor CT scan reviewed (3) Pneumonia due to COVID-19 virus: Code(s): U07.1 - COVID-19; J12.82 - Pneumonia due to coronavirus disease 2018 Status: Acute Assessment and Plan: Dexamethasone, no remdesivir due to renal failure (4) End-stage renal disease on hemodialysis: Code(s): N18.6 - End stage renal disease; Z99.2 - Dependence on renal dialysis Status: Acute Assessment and Plan: Continue hemodialysis as needed Nephrology consult Acute hyponatremia nephrology following (5) Acute encephalopathy: Code(s): G93.40 - Encephalopathy, unspecified Status: Acute Assessment and Plan: On admission, CT head on 05/18/2021 with areas of prior infarction without acute intracranial abnormality and age-related findings Slowly improving Has underlying history of dementia (6) Anemia: Code(s): D64.9 - Anemia, unspecified Status: Chronic Assessment and Plan: No signs of bleeding hemoglobin stable (7) Hypertension: Code(s): I10 - Essential (primary) hypertension Status: Chronic Assessment and Plan: Slightly elevated continue to monitor and continue current medication Subjective Date/time seen: 05/28/21 16:43 Interval history: Patient was admitted to the hospital with shortness of breath was found to have pneumonia probable bacterial pneumonia complicated COVID-19 pneumonia patient was treated with dexamethasone Patient on broad-spectrum IV antibiotics switch antibiotic to IV Rocephin and IV azithromycin as cultures not growing any bacteria Has episodes of hypothermia Ferritin is more than 2000 Still has leukocytosis Ferritin still elevated Patient still on oxygen At home patient was independent in daily living activities currently patient need assistant community director with activities 05/26/2021 no overnight events. Patient confused but conversant nursing staff notes much more conversive than before. Remains on 2 L oxygen denies any shortness of breath cough present. 05/27/2021 no overnight events. Patient much more conversant. Shortness of breath on exertion persists, denies any chest pain. 05/28/2021: Pt looks tired is in a deep sleep Review of Systems Review of Systems: All systems reviewed & are unremarkable except as noted in HPI and below Exam Narrative: Patient is sleeping LUNGS: BL coarse breath sounds bilaterally no wheezes ABDO: not distended soft nontender nondistended Lower extremities: no edema no cyanosis or clubbing Neuro: No facial asymmetry alert and awake conversant oriented to self and place moving all his extremities no gross motor deficits noted slow to respond Objective Data Vital Signs Vital Signs: Vital Signs - 24 hr 05/27/21 20:00 05/28/21 00:00 05/28/21 04:00 Temperature 36.6 C 36.7 C 36.3 C L Pulse Rate 53 L 69 70 Respiratory Rate 18 16 18 Blood Pressure 142/44 H 147/47 H 152/54 H Pulse Oximetry 97 95 100 05/28/21 04:45 05/28/21 08:00 05/28/21 09:30 Temperature Pulse Rate 84 Respiratory Rate Blood Pressure Pulse Oximetry 95 95 86 L 05/28/21 09
[2021-05-28] MEDS: ATORVASTATIN 20 MG TABLET PO (21:09)
[2021-05-28] MEDS: TAMSULOSIN HCL 0.4 MG CAPSULE PO (21:09)
[2021-05-28] MEDS: rOPINIRole HCL 0.5 MG TABLET PO (21:09)
[2021-05-28] MEDS: allopurinoL 100 MG TABLET PO (21:09)
[2021-05-29] VITALS (12 sets, daily range): BP systolic 86–155; BP diastolic 32–71; PULSE 64–111; RESP 15–20; TEMP 36.2–37; O2SAT 90–100
[2021-05-29] MEDS: ALBUTEROL SULFATE (*SP) AEROSOL 1 PUFF 2 PUFF INHALATION ×4 (03:11→20:20)
[2021-05-29 07:28] LABS: Albumin Level 3.2 g/dL (3.5-5.1); Anion Gap 4 mmol/L (8-16); Blood Urea Nitrogen 90 mg/dL (9-20); CRP < 0.5 mg/dL (<1.0); Calcium 8.3 mg/dL (8.4-10.2); Carbon Dioxide 27 mmol/L (22-30); Chloride 100 mmol/L (98-107); Estimated CRCL calculation 5 ml/min; Estimated Glomerular Filt Rate 7; Glucose 133 mg/dL (65-110); Phosphorus 2.5 mg/dL (2.5-4.5); Potassium 4.5 mmol/L (3.4-5.0); Sodium 131 mmol/L (137-145)
[2021-05-29 08:04] LABS: Procalcitonin 1.3 ng/mL
--- NOTE | 2021-05-29 09:48 | P.PNNP_ITS ---
Progress Note: A&P Assessment and Plan (1) End stage renal disease: Code(s): N18.6 - End stage renal disease Status: Chronic Assessment and Plan: * HD due today * outpatient dialysis unit = [facility] * primary chronometer repairer = Dr. Blackman * Volume status looks okay. * potassium is okay. (2) Acute respiratory failure with hypoxia: Code(s): J96.01 - Acute respiratory failure with hypoxia Status: Acute Assessment and Plan: * due to COVID-19 * noted to be hypoxic on admission * supplemental oxygen PRN * Off antibacterials. * follow respiratory status (3) Pneumonia due to COVID-19 virus: Code(s): U07.1 - COVID-19; J12.82 - Pneumonia due to coronavirus disease 2019 Status: Acute Assessment and Plan: * noted positive testing at [place] [facility] * respiratory isolation has time doubt (4) Hypertension: Code(s): I10 - Essential (primary) hypertension Status: Chronic Assessment and Plan: * Systolic running 110s to 150s. * He is on Diltiazem and lisinopril. (5) Anemia: Code(s): D64.9 - Anemia, unspecified Status: Chronic Assessment and Plan: * due to ESRD * Epogen with HD * Hemoglobin 8.9. Will continue Epogen with dialysis. Subjective Date/time seen: 05/29/21 09:48 Interval history: Generally weak. Breathing is better. Still on oxygen. Due for dialysis today. Exam Narrative: General: ill appearing AA male in NAD Heart: normal S1 and S2; no rub or gallop Lungs: clear bilaterally Abdomen: soft, nontender, nondistended, positive bowel sounds Extremities: no cyanosis or clubbing; no edema Skin: No rash Objective Data Vital Signs Vital Signs: Vital Signs - 24 hr 05/28/21 09:50 05/28/21 14:00 05/28/21 22:00 Temperature 36.3 C L 36.6 C Pulse Rate 69 64 64 Respiratory Rate 18 16 Blood Pressure 124/49 L 128/44 L Pulse Oximetry 93 100 97 05/29/21 05:52 05/29/21 08:58 Temperature 36.4 C L Pulse Rate 64 Respiratory Rate 17 Blood Pressure 109/42 L Pulse Oximetry 100 90 Intake/Output Intake/Output: Intake & Output 01/2905/27/21 05/28/21 05/29/21 23:59 23:59 23:59 23:59 Intake Total 320 740 400 140 Output Total 1825 0 125 Balance -1505 740 275 140 Meds/Results Medications: Active Medications Generic Name Dose Route Start Last Admin Trade Name Freq PRN Reason Stop Dose Admin Acetaminophen 650 mg 05/25/21 10:22 05/25/21 12:11 Acetaminophen 325 Mg Tablet PO 650 mg Q6H PRN Administration Mild Pain (1-3) or Fever Albuterol 2 puff 05/19/21 02:00 05/29/21 08:57 Albuterol Sulfate (*Sp) Aerosol 1 Puff INHALATION 2 puff Q6HRT LOKESH Administration Allopurinol 100 mg 05/19/21 21:00 05/28/21 21:09 Allopurinol 100 Mg Tablet PO 100 mg HS LOKESH Administration Apixaban 2.5 mg 05/19/21 09:00 05/28/21 17:30 Apixaban 2.5 Mg Tablet PO 2.5 mg BID LOKESH Administration Atorvastatin Calcium 20 mg 05/19/21 21:00 05/28/21 21:09 Atorvastatin 20 Mg Tablet PO 20 mg HS LOKESH Administration Diltiazem HC
--- NOTE | 2021-05-29 09:48 | PM.PNNEP ---
Progress Note: A&P Assessment and Plan (1) End stage renal disease: Code(s): N18.6 - End stage renal disease Status: Chronic Assessment and Plan: HD due today outpatient dialysis unit = [facility] primary hand scudder = Dr. Blackman Volume status looks okay. potassium is okay. (2) Acute respiratory failure with hypoxia: Code(s): J96.01 - Acute respiratory failure with hypoxia Status: Acute Assessment and Plan: due to COVID-19 noted to be hypoxic on admission supplemental oxygen PRN Off antibacterials. follow respiratory status (3) Pneumonia due to COVID-19 virus: Code(s): U07.1 - COVID-19; J12.82 - Pneumonia due to coronavirus disease 2019 Status: Acute Assessment and Plan: noted positive testing at [place] [facility] respiratory isolation has time doubt (4) Hypertension: Code(s): I10 - Essential (primary) hypertension Status: Chronic Assessment and Plan: Systolic running 110s to 150s. He is on Diltiazem and lisinopril. (5) Anemia: Code(s): D64.9 - Anemia, unspecified Status: Chronic Assessment and Plan: due to ESRD Epogen with HD Hemoglobin 8.9. Will continue Epogen with dialysis. Subjective Date/time seen: 05/29/21 09:48 Interval history: Generally weak. Breathing is better. Still on oxygen. Due for dialysis today. Exam Narrative: General: ill appearing AA male in NAD Heart: normal S1 and S2; no rub or gallop Lungs: clear bilaterally Abdomen: soft, nontender, nondistended, positive bowel sounds Extremities: no cyanosis or clubbing; no edema Skin: No rash Objective Data Vital Signs Vital Signs: Vital Signs - 24 hr 05/28/21 09:50 05/28/21 14:00 05/28/21 22:00 Temperature 36.3 C L 36.6 C Pulse Rate 69 64 64 Respiratory Rate 18 16 Blood Pressure 124/49 L 128/44 L Pulse Oximetry 93 100 97 05/29/21 05:52 05/29/21 08:58 Temperature 36.4 C L Pulse Rate 64 Respiratory Rate 17 Blood Pressure 109/42 L Pulse Oximetry 100 90 Intake/Output Intake/Output: Intake & Output 05/26/21 05/27/21 05/28/21 05/29/21 23:59 23:59 23:59 23:59 Intake Total 320 740 400 140 Output Total 1825 0 125 Balance -1505 740 275 140 Meds/Results Medications: Active Medications Generic Name Dose Route Start Last Admin Trade Name Freq PRN Reason Stop Dose Admin Acetaminophen 650 mg 05/25/21 10:22 05/25/21 12:11 Acetaminophen 325 Mg Tablet PO 650 mg Q6H PRN Administration Mild Pain (1-3) or Fever Albuterol 2 puff 05/19/21 02:00 05/29/21 08:57 Albuterol Sulfate (*Sp) Aerosol 1 Puff INHALATION 2 puff Q6HRT LOKESH Administration Allopurinol 100 mg 05/19/21 21:00 05/28/21 21:09 Allopurinol 100 Mg Tablet PO 100 mg HS LOKESH Administration Apixaban 2.5 mg 05/19/21 09:00 05/28/21 17:30 Apixaban 2.5 Mg Tablet PO 2.5 mg BID LOKESH Administration Atorvastatin Calcium 20 mg 05/19/21 21:00 05/28/21 21:09 Atorvastatin 20 Mg Tablet PO 20 mg HS LOKESH Administration Diltiazem HCl 120 mg 05/19/21 09:00 05/28/21 08:27 Diltiazem Hcl Cd 120 Mg Cap.Sa.24h PO 120 mg DAILY LOKESH Administration Epoetin Bacilio-epbx 10,000 units 05/26/21 17:00 05/27/21 09:24 Epoetin Bacilio-Epbx 10,000 Units/Ml Vial IV PUSH Not Given TuThSa@1700 LOKESH Furosemide 80 mg 05/19/21 09:00 05/28/21 17:30 Furosemide 80 Mg Tablet PO 80 mg BID LOKESH Administration Albumin Human 50 mls @ 999 mls/hr 05/24/21 05:22 Albutein IVPB 06/23/21 05:21 Q10M PRN HYPOTENSION Lisinopril 10 mg 05/27/21 09:00 05/28/21 08:27 Lisinopril 10 Mg Tablet PO 10 mg DAILY LOKESH Administration Ropinirole HCl 0.5 mg 05/19/21 21:00 05/28/21 21:09 Ropinirole Hcl 0.5 Mg Tablet PO 0.5 mg HS LOKESH Administration Sevelamer Carbonate 800 mg 05/19/21 08:00 05/29/21 09:08 Sevelamer Carbonate 800 Mg Tablet PO No
--- NOTE | 2021-05-29 10:37 | PC.NURSE ---
CALLED INTO DIALYSIS ROOM FOR REPORT OF PATIENT HAVING SEIZURE LIKE ACTIVITY WITH DROP IN BP. DIALYSIS NURSE NOTIFIED JENNY AND IS STOPPING TREATMENT. DR TRINIDAD AT BEDSIDE AND RECOMMENDING TO HOLD OFF AT [facility] AT THIS TIME DUE TO LOW O2 SATS, SATTING 88% ON 5LNC. RESPIRATORY BRINGING FACEMASK FOR OXYGEN ADMINISTRATION WITH O2 SAT NOW READING 95%. TRANSPORTING PATIENT BACK TO INPATIENT ROOM.
[2021-05-29 11:28] LABS: Glucose Point of Care 182 mg/dl (65-105)
--- NOTE | 2021-05-29 12:34 | PC.NURSE ---
NOTIFIED DR TRINIDAD OF NO IV ACCESS, ASKING IF PATIENT WILL BE DISCHARGED SOON IF WE NEED TO REPLACE. PER DR. TRINIDAD HE WILL CALL BACK TO CLARIFY.
[2021-05-29] MEDS: SEVELAMER CARBONATE 800 MG TABLET PO ×2 (12:36→17:32)
[2021-05-29] MEDS: APIXABAN 2.5 MG TABLET PO ×2 (12:40→17:32)
[2021-05-29] MEDS: FUROSEMIDE 80 MG TABLET PO ×2 (12:40→17:32)
--- NOTE | 2021-05-29 13:58 | PCOTNOTE ---
Attempted to see patient this pm, however patient declined stating, No, to all activities encouraged.
--- NOTE | 2021-05-29 16:58 | PM.IMPN ---
Progress Note: A&P Assessment and Plan (1) Acute respiratory failure with hypoxia: Code(s): J96.01 - Acute respiratory failure with hypoxia Status: Acute Assessment and Plan: Likely secondary to pneumonia COVID positive Multifactorial secondary to bacterial pneumonia complicating COVID-[address] scan of the chest with patchy bilateral airspace disease 05/25/2021 possible COVID versus bacterial pneumonia Procalcitonin was high at 3.3 suggestive of bacterial involvement On ceftriaxone and azithromycin. Will discontinue azithromycin as already completed 5 days course Slowly improving, rpt cxr estee 05/29/2021 Interval history: patient with COVID, and with end-stage renal disease on hemodialysis today during dialysis patient was tremulous and concern for seizure however patient was not quite post he was hypotensive and dialysis was stopped. CT scan of the chest with patchy bilateral airspace disease 05/25/2021 possible COVID versus bacterial pneumonia Procalcitonin was high at 3.3 suggestive of bacterial involvement On ceftriaxone and azithromycin. Will discontinue azithromycin as already completed 6 days course, and will complete 7 day course of IV antibiotics tomorrow and will stop the antibiotic, will be seen by Nephrology and further recommendation to follow. (2) Multilobar lung infiltrate: Code(s): R91.8 - Other nonspecific abnormal finding of lung field Status: Acute Assessment and Plan: Rocephin and Zithromax reviewed chest x-ray CBC CRP procalcitonin ferritin monitor CT scan reviewed (3) Pneumonia due to COVID-19 virus: Code(s): U07.1 - COVID-19; J12.82 - Pneumonia due to coronavirus disease 2018 Status: Acute Assessment and Plan: Dexamethasone, no remdesivir due to renal failure (4) End-stage renal disease on hemodialysis: Code(s): N18.6 - End stage renal disease; Z99.2 - Dependence on renal dialysis Status: Acute Assessment and Plan: Continue hemodialysis as needed Nephrology consult Acute hyponatremia nephrology following (5) Acute encephalopathy: Code(s): G93.40 - Encephalopathy, unspecified Status: Acute Assessment and Plan: On admission, CT head on 05/18/2021 with areas of prior infarction without acute intracranial abnormality and age-related findings Slowly improving Has underlying history of dementia (6) Anemia: Code(s): D64.9 - Anemia, unspecified Status: Chronic Assessment and Plan: No signs of bleeding hemoglobin stable (7) Hypertension: Code(s): I10 - Essential (primary) hypertension Status: Chronic Assessment and Plan: Slightly elevated continue to monitor and continue current medication Additional Plan DVT prophylaxis on Eliquis Code status full code Subjective Date/time seen: 05/29/21 16:58 05/29/2021 Interval history: patient with COVID, and with end-stage renal disease on hemodialysis today during dialysis patient was tremulous and concern for seizure however patient was not quite post he was hypotensive and dialysis was stopped. CT scan of the chest with patchy bilateral airspace disease 05/25/2021 possible COVID versus bacterial pneumonia Procalcitonin was high at 3.3 suggestive of bacterial involvement On ceftriaxone and azithromycin. Will discontinue azithromycin as already completed 6 days course, and will complete 7 day course of IV antibiotics tomorrow and will stop the antibiotic, will be seen by Nephrology and further recommendation to follow. Review of Systems Review of Systems: All systems reviewed & are unremarkable except as noted in HPI and below ROS unobtainable: Yes unobtainable due to mental status (Delirious) Exam Narrative: Patient is comfortable, NAD, appears chronically ill HEENT: eyes are clear and none icteric LUNGS: normal respiratory effort ABD: not distended Lower extremities: no edema SKIN: nonjaundiced Neuro: grossly intact.
[2021-05-29] MEDS: rOPINIRole HCL 0.5 MG TABLET PO (20:42)
[2021-05-29] MEDS: ATORVASTATIN 20 MG TABLET PO (20:42)
[2021-05-29] MEDS: allopurinoL 100 MG TABLET PO (20:42)
[2021-05-29] MEDS: TAMSULOSIN HCL 0.4 MG CAPSULE PO (20:42)
[2021-05-29] MEDS: ALBUMIN HUMAN 25% 25 GM/100 ML 100 ML IVPB (21:55)
[2021-05-30] VITALS: BP 122/34
--- NOTE | 2021-05-30 00:36 | PC.NURSE ---
2100 Patient BP 86/32. Mayra Rosen notified and a one time order of Albumin 25 GRAMS/100mL. 0000 BP 122/34. Patient resting comfortable and drinking some fluids
[2021-05-30] MEDS: ALBUTEROL SULFATE (*SP) AEROSOL 1 PUFF 2 PUFF INHALATION ×4 (03:00→22:01)
[2021-05-30 04:00] VITALS: BP 118/48; PULSE 74; RESP 16; TEMP 36.6; O2SAT 96
--- NOTE | 2021-05-30 06:46 | P.PNNP_ITS ---
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 Blackman * Volume status looks okay. * potassium is okay. (2) Acute respiratory failure with hypoxia: Code(s): J96.01 - Acute respiratory failure with hypoxia Status: Acute Assessment and Plan: * due to COVID-19 * noted to be hypoxic on admission * supplemental oxygen PRN * Off antibacterials. * Still on a little bit of oxygen (3) Pneumonia due to COVID-19 virus: Code(s): U07.1 - COVID-19; J12.82 - Pneumonia due to coronavirus disease 2018 Status: Acute Assessment and Plan: * noted positive testing at [place] [facility] * respiratory isolation has time doubt (4) Hypertension: Code(s): I10 - Essential (primary) hypertension Status: Chronic Assessment and Plan: * Systolic generally running 110s to 130s. * He is on Diltiazem and lisinopril. (5) Anemia: Code(s): D64.9 - Anemia, unspecified Status: Chronic Assessment and Plan: * due to ESRD * Epogen with HD Hemoglobin 9.3 yesterday. Will continue Epogen with dialysis. Subjective Date/time seen: 05/30/21 06:46 Interval history: Generally weak. Patient lying in bed and breathing comfortably. He had dialysis yesterday. Still generally weak and sleepy. Exam Narrative: General: ill appearing AA male in NAD Heart: normal S1 and S2; no rub or gallop Lungs: Rare crackles on auscultation Abdomen: soft, nontender, nondistended, positive bowel sounds Extremities:no edema Skin: No rash or subQ nodules Objective Data Vital Signs Vital Signs: Vital Signs - 24 hr 05/29/21 08:58 05/29/21 09:34 05/29/21 09:43 Temperature 36.8 C Pulse Rate 66 84 Respiratory Rate 18 Blood Pressure 136/60 138/64 Pulse Oximetry 90 05/29/21 09:45 05/29/21 09:55 05/29/21 10:26 Temperature Pulse Rate 81 111 H 111 H Respiratory Rate Blood Pressure 115/52 L 98/54 L 155/71 H Pulse Oximetry 05/29/21 10:45 05/29/21 10:51 05/29/21 12:44 Temperature 36.7 C 36.2 C L Pulse Rate 87 88 76 Respiratory Rate 18 20 Blood Pressure 122/66 135/48 L 111/44 L Pulse Oximetry 97 100 05/29/21 20:20 05/29/21 21:41 05/30/21 00:00 Temperature 36.4 C Pulse Rate 74 71 Respiratory Rate 15 Blood Pressure 86/32 L 122/34 L Pulse Oximetry 94 100 05/30/21 04:00 Temperature 36.6 C Pulse Rate 74 Respiratory Rate 16 Blood Pressure 118/48 L Pulse Oximetry 96 Intake/Output Intake/Output: Intake & Output 05/27/21 05/28/21 05/29/21 05/30/21 23:59 23:59 23:59 23:59 Intake Total 740 400 240 620 Output Total 0 125 0 Balance 740 275 240 620 Meds/Results Medications: Active Medications Generic Name Dose Route Start Last Admin Trade Name Freq PRN Reason Sto
--- NOTE | 2021-05-30 06:46 | PM.PNNEP ---
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 Blackman Volume status looks okay. potassium is okay. (2) Acute respiratory failure with hypoxia: Code(s): J96.01 - Acute respiratory failure with hypoxia Status: Acute Assessment and Plan: due to COVID-19 noted to be hypoxic on admission supplemental oxygen PRN Off antibacterials. Still on a little bit of oxygen (3) Pneumonia due to COVID-19 virus: Code(s): U07.1 - COVID-19; J12.82 - Pneumonia due to coronavirus disease 2018 Status: Acute Assessment and Plan: noted positive testing at [place] [facility] respiratory isolation has time doubt (4) Hypertension: Code(s): I10 - Essential (primary) hypertension Status: Chronic Assessment and Plan: Systolic generally running 110s to 130s. He is on Diltiazem and lisinopril. (5) Anemia: Code(s): D64.9 - Anemia, unspecified Status: Chronic Assessment and Plan: due to ESRD Epogen with HD Hemoglobin 9.3 yesterday. Will continue Epogen with dialysis. Subjective Date/time seen: 05/30/21 06:46 Interval history: Generally weak. Patient lying in bed and breathing comfortably. He had dialysis yesterday. Still generally weak and sleepy. Exam Narrative: General: ill appearing AA male in NAD Heart: normal S1 and S2; no rub or gallop Lungs: Rare crackles on auscultation Abdomen: soft, nontender, nondistended, positive bowel sounds Extremities:no edema Skin: No rash or subQ nodules Objective Data Vital Signs Vital Signs: Vital Signs - 24 hr 05/29/21 08:58 05/29/21 09:34 05/29/21 09:43 Temperature 36.8 C Pulse Rate 66 84 Respiratory Rate 18 Blood Pressure 136/60 138/64 Pulse Oximetry 90 05/29/21 09:45 05/29/21 09:55 05/29/21 10:26 Temperature Pulse Rate 81 111 H 111 H Respiratory Rate Blood Pressure 115/52 L 98/54 L 155/71 H Pulse Oximetry 05/29/21 10:45 05/29/21 10:51 05/29/21 12:44 Temperature 36.7 C 36.2 C L Pulse Rate 87 88 76 Respiratory Rate 18 20 Blood Pressure 122/66 135/48 L 111/44 L Pulse Oximetry 97 100 05/29/21 20:20 05/29/21 21:41 05/30/21 00:00 Temperature 36.4 C Pulse Rate 74 71 Respiratory Rate 15 Blood Pressure 86/32 L 122/34 L Pulse Oximetry 94 100 05/30/21 04:00 Temperature 36.6 C Pulse Rate 74 Respiratory Rate 16 Blood Pressure 118/48 L Pulse Oximetry 96 Intake/Output Intake/Output: Intake & Output 05/27/21 05/28/21 05/29/21 05/30/21 23:59 23:59 23:59 23:59 Intake Total 740 400 240 620 Output Total 0 125 0 Balance 740 275 240 620 Meds/Results Medications: Active Medications Generic Name Dose Route Start Last Admin Trade Name Freq PRN Reason Stop Dose Admin Acetaminophen 650 mg 05/25/21 10:22 05/25/21 12:11 Acetaminophen 325 Mg Tablet PO 650 mg Q6H PRN Administration Mild Pain (1-3) or Fever Albuterol 2 puff 05/19/21 02:00 05/30/21 03:00 Albuterol Sulfate (*Sp) Aerosol 1 Puff INHALATION 2 puff Q6HRT LOKESH Administration Allopurinol 100 mg 05/19/21 21:00 05/29/21 20:42 Allopurinol 100 Mg Tablet PO 100 mg HS LOKESH Administration Apixaban 2.5 mg 05/19/21 09:00 05/29/21 17:32 Apixaban 2.5 Mg Tablet PO 2.5 mg BID LOKESH Administration Atorvastatin Calcium 20 mg 05/19/21 21:00 05/29/21 20:42 Atorvastatin 20 Mg Tablet PO 20 mg HS LOKESH Administration Diltiazem HCl 120 mg 05/19/21 09:00 05/29/21 12:43 Diltiazem Hcl Cd 120 Mg Cap.Sa.24h PO Not Given DAILY LOKESH Epoetin Bacilio-epbx 10,000 units 05/26/21 17:00 05/27/21 09:24 Epoetin Bacilio-Epbx 10,000 Units/Ml Vial IV PUSH Not Given TuThSa@1700 LOKESH Furosemide 80
[2021-05-30 07:30] LABS: Albumin Level 3.3 g/dL (3.5-5.1); Anion Gap 7 mmol/L (8-16); Blood Urea Nitrogen 105 mg/dL (9-20); Calcium 8.1 mg/dL (8.4-10.2); Carbon Dioxide 25 mmol/L (22-30); Chloride 100 mmol/L (98-107); Estimated CRCL calculation 6 ml/min; Estimated Glomerular Filt Rate 8; Glucose 141 mg/dL (65-110); Potassium 4.7 mmol/L (3.4-5.0); Sodium 132 mmol/L (137-145)
[2021-05-30 09:46] VITALS: O2SAT 94
--- NOTE | 2021-05-30 10:58 | PCPTNOTE ---
Patient refused therapy at this time. Patient reports he is in no pain. Nursing notified.
--- NOTE | 2021-05-30 11:28 | PCOTNOTE ---
Attempted to see patient this am. Upon entering patient pleasant and agreeable to ADLs up in chair. However upon removing covers and instructing patient in sitting edge of bed, patient became agitated throwing arms and kicking legs stating, I don't want to wash up! I don't want to get up! Encouraged patient to participate, however patient refused.
--- NOTE | 2021-05-30 12:52 | PCOTNOTE ---
Attempted to see patient this pm, however patient refused stating, No. to all activities encouraged.
[2021-05-30] MEDS: APIXABAN 2.5 MG TABLET PO ×2 (13:03→17:22)
[2021-05-30] MEDS: FUROSEMIDE 80 MG TABLET PO ×2 (13:03→17:22)
[2021-05-30] MEDS: lisinopriL 10 MG TABLET PO (13:04)
[2021-05-30] MEDS: SEVELAMER CARBONATE 800 MG TABLET PO (13:04)
--- NOTE | 2021-05-30 13:31 | P.DS_ITS ---
DS: Summary Time Spent with Patient Time attestation: Total time spent providing and/or coordinating discharge ser vices: DS: Data Data Completed and Pending Labs on day of discharge: Labs from last 24 hours 05/30/21 06:51 Sodium 132 L Potassium 4.7 Chloride 100 Carbon Dioxide 25 Anion Gap 7 L BUN 105 H D Creatinine 8.00 H Estim Creat Clear Calc 6 Estimated GFR 8 L Glucose 141 H Calcium 8.1 L Phosphorus 2.0 L Albumin 3.3 L Discharge Plan Discharge Attending physician on discharge: Niesha Tejada Consulting providers: Cyrus Arroyo Discharging Clinician: Niesha Tejada Patient Disposition: Home, Self-Care Activity: as tolerated Diet: renal and low sodium Discharge Instructions: Patient will follow with his entry level sales associate for scheduled dialysis and follow up with his primary care provider as soon as possible, Patient Instructions: Antibiotic Form, Apixaban (By mouth), Pain Management (DC) Stand Alone Forms: General Discharge Information Follow-up/Referrals: Cyrus Arroyo MD [Physician] - Naveen Clark DO [Primary Care Provider] - Discharge Medications: New albuterol sulfate [Proventil HFA] 90 mcg/actuation Hfa Aerosol Inhaler 2 puff inhalation Q6HRT Qty: 8 RF: 0 lisinopril 10 mg Tablet 10 mg PO DAILY Qty: 30 RF: 0 Continued atorvastatin 20 mg tablet 20 mg PO HS RF: 0 allopurinol 100 mg tablet 100 mg PO HS RF: 0 tamsulosin 0.4 mg capsule 0.4 mg PO HS RF: 0 furosemide 80 mg tablet 80 mg PO BID RF: 0 ropinirole 0.5 mg tablet 0.5 mg PO HS RF: 0 sevelamer carbonate 800 mg tablet 800 mg PO TID RF: 0 Eliquis 2.5 mg tablet 2.5 mg PO BID RF: 0 diltiazem HCl [Cardizem CD] 120 mg Capsule,Extended Release 24hr 120 mg PO DAILY RF: 0 Held hydrocodone-acetaminophen 10-325 mg Tablet 1 tablet PO Q6H PRN (Reason: Pain) RF: 0 Hold Instructions: until seen by primary care provider. Date of admission: 05/19/21 08:02 Primary Care Provider: Naveen Clark Admitting Provider: Lew Estrada V. Attending physician on admission: Lew Estrada V. Condition: Guarded Prognosis
[2021-05-30 14:00] VITALS: BP 133/51; PULSE 89; RESP 17; TEMP 36.8; O2SAT 93
[2021-05-30] MEDS: ATORVASTATIN 20 MG TABLET PO (21:09)
[2021-05-30] MEDS: rOPINIRole HCL 0.5 MG TABLET PO (21:09)
[2021-05-30] MEDS: TAMSULOSIN HCL 0.4 MG CAPSULE PO (21:09)
[2021-05-30] MEDS: allopurinoL 100 MG TABLET PO (21:10)
[2021-05-30 22:00] VITALS: BP 138/38; PULSE 78; RESP 16; TEMP 36.4; O2SAT 99
[2021-05-30 22:01] VITALS: O2SAT 94
[2021-05-31] VITALS (28 sets, daily range): BP systolic 66–164; BP diastolic 35–79; PULSE 57–108; RESP 4–24; TEMP 36.2–36.7; O2SAT 82–100
[2021-05-31] MEDS: ALBUTEROL SULFATE (*SP) AEROSOL 1 PUFF 2 PUFF INHALATION ×2 (01:33→07:30)
[2021-05-31] MEDS: IPRATROPIUM BR 0.02% INH SOLN 0.5 MG/2.5 ML VIAL INHALATION (07:30)
[2021-05-31] MEDS: ALBUTEROL SULFATE NEB 2.5 MG/0.5 ML INH 5 MG INHALATION (07:35)
[2021-05-31] MEDS: FUROSEMIDE INJ 40 MG/4 ML VIAL IV PUSH (07:45)
[2021-05-31] MEDS: methylPREDNISolone SOD SUCC 125 MG VIAL IV PUSH (07:50)
[2021-05-31 07:51] LABS: Alveolar/Arterial O2 Gradient 220.2 mmHg; Base Excess ABG -2.7 mEq/l (+/-2.0); Fractional Inspired Oxygen 44 %; Oxygen Content ABG 5.1 %vol (16.0-22.0); Oxygen Saturation ABG 95.7 % (95.0-100.0); Oxyhemoglobin 90.7 % THb (90.0-100.0); PO2 ABG 66.6 mmHg (80.0-100.0); PO2 FiO2 Ratio Arterial Blood 1.51 %
[2021-05-31 07:52] LABS: Modified Allen's Test Pass; PCO2 ABG 23.6 mmHg (35.0-45.0); Site Drawn RIGHT RADIAL; Total Hemoglobin 3.9 g/dL (12.0-18.0); pH ABG 7.546 (7.350-7.450)
[2021-05-31 07:53] LABS: Device NASAL CANNULA
[2021-05-31 08:25] LABS: Mean Corpuscular HGB Conc 31.4 g/dl (32-36); Mean Corpuscular Hemoglobin 33.6 pg (26-34); Mean Corpuscular Volume 107.3 fl (80-100); Mean Platelet Volume 10.2 fl (7.4-10.4); Platelet Count Result 158 k/mm3 (150-375); Red Cell Distribution Width 17.2 % (11.5-14.5); White Blood Count 13.5 K/mm3 (4.5-10.0)
[2021-05-31 08:29] LABS: Hemoglobin 3.7 g/dL (14.0-18.0)
[2021-05-31 08:30] LABS: Hematocrit 11.8 % (42.0-52.0)
--- NOTE | 2021-05-31 08:37 | PM.PNNEP ---
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 Blackman Due for dialysis today. His blood pressure is okay right now. Will try dialysis today. (2) Acute respiratory failure with hypoxia: Code(s): J96.01 - Acute respiratory failure with hypoxia Status: Acute Assessment and Plan: due to COVID-19 noted to be hypoxic on admission supplemental oxygen PRN Off antibacterials. Still on 2L of oxygen (3) Pneumonia due to COVID-19 virus: Code(s): U07.1 - COVID-19; J12.82 - Pneumonia due to coronavirus disease 2018 Status: Acute Assessment and Plan: noted positive testing at [place] [facility] respiratory isolation has time doubt (4) Hypertension: Code(s): I10 - Essential (primary) hypertension Status: Chronic Assessment and Plan: Systolic low this morning. Will be due to the severe anemia. He is on Diltiazem and lisinopril. (5) Anemia: Code(s): D64.9 - Anemia, unspecified Status: Chronic Assessment and Plan: Hemoglobin very low. Will check stool guaiac. There is no clear GI bleeding though. Will check iron levels. Will receive 2units of blood. This will start right away and we can finish on dialysis as long as his blood pressure is okay. Dr Clarke is ordering a CT scan. Epogen with HD Overall the patient looks very ill. Unclear were all the blood went. The nurse also found him unresponsive and foaming at the mouth so he may have had a seizure. Consider neuro consult. Rose? Discussed with Dr Clarke. Subjective Date/time seen: 05/31/21 08:37 Interval history: He is not responsive today. I talked with Nursing. Last night he had low blood pressure and unresponsiveness. He was given albumin and his blood pressure is better now. Blood gases were checked and he has respiratory alkalosis. The hemoglobin done on the blood gases showed that his hemoglobin is only 3.8. His last hemoglobin was 8.9. He was typed and cross for 2units of blood and will give it on dialysis. He is due for dialysis today. Exam Narrative: General: ill appearing AA male in NAD Heart: normal S1 and S2; no rub or gallop Lungs: Rare crackles on auscultation Abdomen: soft, nontender, nondistended, positive bowel sounds Extremities:no edema Skin: No rash or subQ nodules Objective Data Vital Signs Vital Signs: Vital Signs - 24 hr 05/30/21 09:46 05/30/21 14:00 05/30/21 22:00 Temperature 36.8 C 36.4 C L Pulse Rate 89 78 Respiratory Rate 17 16 Blood Pressure 133/51 L 138/38 L Pulse Oximetry 94 93 99 05/30/21 22:01 05/31/21 01:34 05/31/21 05:47 Temperature 36.2 C L Pulse Rate 85 Respiratory Rate 14 Blood Pressure 135/40 L Pulse Oximetry 94 82 L 100 Intake/Output Intake/Output: Intake & Output 05/28/21 05/29/21 05/30/21 05/31/21 23:59 23:59 23:59 23:59 Intake Total 400 240 635 30 Output Total 125 0 Balance 275 240 635 30 Meds/Results Medications: Active Medications Generic Name Dose Route Start Last Admin Trade Name Freq PRN Reason Stop Dose Admin Acetaminophen 650 mg 05/25/21 10:22 05/25/21 12:11 Acetaminophen 325 Mg Tablet PO 650 mg Q6H PRN Administration Mild Pain (1-3) or Fever Albuterol 2 puff 05/19/21 02:00 05/31/21 07:30 Albuterol Sulfate (*Sp) Aerosol 1 Puff INHALATION 2 puff Q6HRT LOKESH Administration Allopurinol 100 mg 05/19/21 21:00 05/30/21 21:10 Allopurinol 100 Mg Tablet PO 100 mg HS LOKESH Administration Apixaban 2.5 mg 05/19/21 09:00 05/30/21 17:22 Apixaban 2.5 Mg Tablet PO 2.5 mg BID LOKESH Administration Atorvastatin Calcium 20 mg 05/19/21 21:00 05/30/21 21:09 Atorvastatin 20 Mg Tablet PO 20 mg
[2021-05-31 08:43] LABS: Albumin Level 3.5 g/dL (3.5-5.1); Anion Gap 11 mmol/L (8-16); Blood Urea Nitrogen 147 mg/dL (9-20); Calcium 8.3 mg/dL (8.4-10.2); Carbon Dioxide 22 mmol/L (22-30); Chloride 100 mmol/L (98-107); Estimated CRCL calculation 5 ml/min; Estimated Glomerular Filt Rate 6; Glucose 175 mg/dL (65-110); Magnesium 2.5 mg/dL (1.6-2.3); Phosphorus 2.3 mg/dL (2.5-4.5); Potassium 5.6 mmol/L (3.4-5.0); Sodium 133 mmol/L (137-145)
[2021-05-31 09:51] LABS: PCO2 ABG 23.3 mmHg (35.0-45.0); PO2 ABG 111.4 mmHg (80.0-100.0); pH ABG 7.495 (7.350-7.450)
--- NOTE | 2021-05-31 09:51 | PC.NURSE ---
Blood given via dialysis. See Ashley Vail RNcover inspector on blood. OK per Dr Tejada and Dr. Fuentes. See Rapid/code documentation.
[2021-05-31 09:52] LABS: Alveolar/Arterial O2 Gradient 5.3 mmHg; Base Excess ABG -5.7 mEq/l (+/-2.0); HCO3 ABG 17.6 mEq/l (22.0-26.0); Oxygen Content ABG 19.6 %vol (16.0-22.0); Oxygen Saturation ABG 98.5 % (95.0-100.0); Total Hemoglobin 3.7 g/dL (12.0-18.0)
[2021-05-31 09:53] LABS: Fractional Inspired Oxygen 100 %; Modified Allen's Test Pass; Oxyhemoglobin 95.6 % THb (90.0-100.0); Site Drawn LEFT RADIAL
[2021-05-31 09:54] LABS: Device NON-REBREATHER MASK
[2021-05-31 09:54] LABS: Glucose Point of Care 211 mg/dl (65-105)
--- NOTE | 2021-05-31 09:58 | PCOTNOTE ---
Patient experienced a change in medical status, no longer appropriate for occupational therapy services at this time. Can re-order OT if patient condition improves. Plan to discharge from OT at this time.
--- NOTE | 2021-05-31 10:04 | PCPTNOTE ---
Patient experienced a change in medical status, no longer appropriate for physical therapy services at this time. Can re-order PT if patient condition improves. Plan to discharge from PT at this time.
[2021-05-31 12:41] LABS: Glucose Point of Care 170 mg/dl (65-105)
--- NOTE | 2021-05-31 13:46 | PDCODEBLUE ---
Code Blue Note Code Blue Note Time Arrived at Code Blue: 930 Initial Rhythm on Arrival: Sinus tachycardia Airway Management: No airway on arrival Chest Compressions: No compressions given Result of Code Blue: Pt regained consciousness Cardiac Rhythm Post Code: Sinus tach Code Blue Summary: Responded to code blue announcement in dialysis room. Patient was sent there for hemodialysis. He was diagnosed with anemia and drop in hemoglobin this morning and additional blood was ordered that was supposed to be given with hemodialysis. Per nurse patient became unresponsive and was not breathing. Had been encephalopathic throughout his hospital stay. On my arrival with sternal rub patient was responsive although drowsy. I checked his blood sugar and it was above 200. His saturation was 100% around repeated. His systolic blood pressure was in 140s and he was in sinus tachycardia. Did not appear in any respiratory distress. ABG was done and reviewed and showed respiratory alkalosis. Decision was made to transfuse patient blood that was ordered and patient was going to then get hemodialysis. Total critical care time 20 minutes
[2021-05-31 13:48] LABS: Alveolar/Arterial O2 Gradient 570.1 mmHg; Base Excess ABG 1.5 mEq/l (+/-2.0); Fractional Inspired Oxygen 100 %; HCO3 ABG 25.1 mEq/l (22.0-26.0); Oxygen Content ABG 16.9 %vol (16.0-22.0); Oxygen Saturation ABG 98.1 % (95.0-100.0); Oxyhemoglobin 96.6 % THb (90.0-100.0); PCO2 ABG 36.3 mmHg (35.0-45.0); PO2 ABG 106.6 mmHg (80.0-100.0); PO2 FiO2 Ratio Arterial Blood 1.07 %; Total Hemoglobin 12.3 g/dL (12.0-18.0); pH ABG 7.458 (7.350-7.450)
[2021-05-31 13:49] LABS: Device VENTILATOR; Modified Allen's Test Pass; Site Drawn LEFT RADIAL
--- NOTE | 2021-05-31 13:49 | WPDCNINT ---
Assessment and Plan Assessment and plan (1) Acute respiratory failure with hypoxia: Code(s): J96.01 - Acute respiratory failure with hypoxia Status: Acute Assessment and Plan: Patient intubated now for airway protection and hypoxia Chest x-ray and ABG reviewed Vent settings reviewed (2) Multilobar lung infiltrate: Code(s): R91.8 - Other nonspecific abnormal finding of lung field Status: Acute Assessment and Plan: Suspect aspiration Patient has completed a course of antibiotics earlier this hospitalization Start Zosyn and repeat blood and sputum culture (3) Pneumonia due to COVID-19 virus: Code(s): U07.1 - COVID-19; J12.82 - Pneumonia due to coronavirus disease 2018 Status: Acute Assessment and Plan: Patient was tested positive for COVID-19 He had finished a 10 day course of dexamethasone CT findings did not suggest COVID pneumonia but more likely bacterial pneumonia No further treatment for COVID at this time (4) GI bleeding: Code(s): K92.2 - Gastrointestinal hemorrhage, unspecified Status: Acute Assessment and Plan: I suspect patient has GI bleed which has led to drop in his hemoglobin. Hemoglobin on 05/28 was 8.9 and 3.7 this morning His BUN was elevated at 147 and he was on anticoagulation Discontinue Eliquis He has been transfused 4 units of PRBC Serial hemoglobin q.6 hours NPO Despite multiple attempts me and nursing staff were unable to place OG or NG tube Ppi IV q.12 hours Consult GI (5) Anemia: Code(s): D64.9 - Anemia, unspecified Status: Chronic Assessment and Plan: Likely secondary to GI bleed as above Hematology was consulted by Dr. 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 Multiple gas and fluid-filled loops of small bowel which are not frankly dilated and with no discrete transition point which would favor an ileus over obstruction. Scheduled MiraLax, tap water enema, consult GI Additional Plan DVT prophylaxis -SCDs Stress ulcer prophylaxis -IV PPI Nutrition -NPO Code Status - Full Code Total Critical Care Time - 60 minutes except separately billed procedures Due to a high probability of clinically significant, life threatening deterioration, the patient required my highest level of preparedness to intervene emergently and I personally spent this critical care time directly and personally managing the patient. This critical care time included obtaining a history; examining the patient; pulse oximetry; ordering and review of studies; arranging urgent treatment with development of a management plan; evaluation of patient's response to treatment; frequent reassessment; and discussions with other providers. It was exclusive of separately billable procedures and treating other patients and teaching time. 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
[2021-05-31 13:50] LABS: Arterial Blood Gas PEEP 5 cmH2O; Arterial Blood Gas Tidal Volume 350 ml; Arterial Blood Gas Vent Mode CMV; Arterial Blood Gas Ventilator rate 20 /MIN
--- NOTE | 2021-05-31 13:54 | PC.NURSE ---
At 0715, I entered the patient's room to find him with his oxygen off and foaming at the mouth. I immediately called Dr. Tejada to come assess the patient while I replaced the patient's oxygen and obtained vitals. See provider communication assessment for the orders obtained.
--- NOTE | 2021-05-31 14:10 | P.PNIM_ITS ---
Progress Note: A&P Assessment and Plan (1) Acute respiratory failure with hypoxia: Code(s): J96.01 - Acute respiratory failure with hypoxia Status: Acute Assessment and Plan: Patient intubated now for airway protection and hypoxia Chest x-ray and ABG reviewed Vent settings reviewed (2) Multilobar lung infiltrate: Code(s): R91.8 - Other nonspecific abnormal finding of lung field Status: Acute Assessment and Plan: Suspect aspiration Patient has completed a course of antibiotics earlier this hospitalization Start Zosyn and repeat blood and sputum culture (3) Pneumonia due to COVID-19 virus: Code(s): U07.1 - COVID-19; J12.82 - Pneumonia due to coronavirus disease 2018 Status: Acute Assessment and Plan: Patient was tested positive for COVID-19 He had finished a [address] course of dexamethasone CT findings did not suggest COVID pneumonia but more likely bacterial pneumonia No further treatment for COVID at this time (4) GI bleeding: Code(s): K92.2 - Gastrointestinal hemorrhage, unspecified Status: Acute Assessment and Plan: I suspect patient has GI bleed which has led to drop in his hemoglobin. Hemoglobin on 05/28 was 8.9 and 3.7 this morning His BUN was elevated at 147 and he was on anticoagulation Discontinue Eliquis He has been transfused 4 units of PRBC Serial hemoglobin q.6 hours NPO Despite multiple attempts me and nursing staff were unable to place OG or NG tube Ppi IV q.12 hours Consult GI (5) Anemia: Code(s): D64.9 - Anemia, unspecified Status: Chronic Assessment and Plan: Likely secondary to GI bleed as above Hematology was consulted by Dr. 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 Multiple gas and fluid-filled loops of small bowel which are not frankly dilated and with no discrete transition point which would favor an ileus over obstruction. Scheduled MiraLax, tap water enema, consult GI Additional Plan DVT prophylaxis -SCDs Stress ulcer prophylaxis -IV PPI Nutrition -NPO Code Status - Full Code Total Critical Care Time - 60 minutes except separately billed procedures Due to a high probability of clinically significant, life threatening deterioration, the patient required my highest level of preparedness to intervene emergently and I personally spent this critical care time directly and personally managing the patient. This critical care time included obtaining a history; examining the patient; pulse oximetry; ordering and review of studies; arranging urgent treatment with development of a managemen
[2021-05-31] MEDS: dexmedeTOMIDine 400 MCG/100 ML 400 MCG/100 ML BAG 7.15 MCG IV CONT (14:13)
[2021-05-31] MEDS: fentaNYL CITRATE INJ (*CRX) 100 MCG/2 ML VIAL 50 MCG IV PUSH ×2 (14:14→20:18)
[2021-05-31] MEDS: LORazepam INJ (*CRX) 2 MG/ML VIAL IV PUSH ×3 (14:14→21:47)
[2021-05-31 14:40] LABS: Iron 135 ug/dL (49-181)
[2021-05-31 14:49] LABS: Percent Iron Saturation 65 % (20-50)
--- NOTE | 2021-05-31 15:31 | WPDGICN ---
Assessment and Plan Assessment and plan (1) GI bleeding: Code(s): K92.2 - Gastrointestinal hemorrhage, unspecified Status: Acute Assessment and Plan: I am assuming his bleeding is upper gastrointestinal. He will be receiving an enema to open fully unplug his rectum. We will need to wait at least 24 hours to do endoscopy because of his Eliquis. Hopefully we can do this tomorrow. Since he was transfused his hemoglobin has increased to 12 g. He received 4 units total (2) End stage renal disease: Code(s): N18.6 - End stage renal disease Status: Chronic Assessment and Plan: he is on chronic hemodialysis. It seemed he became very weak with dialysis the day that he was admitted here and had recurrence of those symptoms today. Although today it seems to be due to the fact that he became markedly anemic. I do not think dialysis could cause that much anemia. Dr. Fuentes has been on his case. (3) Hypotension: Code(s): I95.9 - Hypotension, unspecified Status: Acute Assessment and Plan: He did not require pressors. His blood pressure has responded to transfusion although it is still a little soft, around 88 systolic when I examined him. Normally he is hypertensive (4) Fecal impaction: Code(s): K56.41 - Fecal impaction Status: Acute Assessment and Plan: this will be addressed 1st with an enema. It may be necessary to remove fecal impaction digitally if we do not have success (5) Pneumonia due to COVID-19 virus: Code(s): U07.1 - COVID-19; J12.82 - Pneumonia due to coronavirus disease 2019 Status: Acute Assessment and Plan: apparently this has resolved and he is no longer on isolation. GI Consult Note Consult date/time: 05/31/21 15:31 HPI: Jules Mitchell is a 75 year old male who was initially hospitalized 2 weeks ago because of shortness of breath while he was in hemodialysis. He does have end-stage renal disease he has hypertension and some dementia. He is chronically anticoagulated. He also tested positive either before his admission or at that time he was admitted. He was about to be discharged yesterday or this morning because he was felt to be stable and was breathing much better, but then while he was in dialysis here this morning a kirby bruce was called because he became unresponsive. He had to be intubated and now is in intensive care unit. He was also noted to have a very significant drop in his hemoglobin , from 8.9 a few days ago to 3.7 now. He has not had any obvious bleeding. He apparently had not had a bowel movement for few days and was found have a large amount of stool in his colon and rectum on CT scan this morning. He has not passed any blood however he had no emesis. No blood was apparently noted in the oropharynx when he was intubated. Attempt to place an NG or OG 2 were not successful. The patient is anticoagulated and on Eliquis. He did receive a dose I believe this morning but is on hold now. We do not have any records of prior gastrointestinal problems Review of Systems Review of Systems: All systems reviewed & are unremarkable except as noted in HPI and below PMFSH Past Medical History Medical History Chronic renal failure Social History Social History Smoking status: Never smoker Second hand tobacco smoke exposure: No Alcohol intake: never Substance use: never Substance use type: does not use Spiritual care concerns: No Meds Home Medications and Allergies Home Medications Medication Instructions Recorded Confirmed Type Eliquis 2.5 mg PO BID 05/18/21 05/19/21 History allopurinol 100 mg PO HS 05/18/21 05/19/21 History atorvastatin 20 mg PO HS 05/18/21 05/19/21 History furosemide 80 mg PO BID 05/18/21 05/19/21 History hydrocodone-acetaminophen 1 tablet PO Q6H PRN 05/18/21
[2021-05-31 15:32] LABS: Hematocrit 31.8 % (42.0-52.0); Hemoglobin 10.8 g/dL (14.0-18.0); Mean Corpuscular Hemoglobin 32.4 pg (26-34); Mean Corpuscular Volume 95.5 fl (80-100); Mean Platelet Volume 10.5 fl (7.4-10.4); Platelet Count Result 118 k/mm3 (150-375); Red Blood Count 3.33 M/mm3 (4.6-6.20); Red Cell Distribution Width 17.8 % (11.5-14.5); White Blood Count 14.5 K/mm3 (4.5-10.0)
[2021-05-31 15:36] LABS: Lactate Dehydrogenase 727 U/L (313-618)
[2021-05-31 15:52] LABS: Immature Reticulocyte Fraction 36.5 % (3.0-15.9); Reticulocyte Hemoglobin Conten 39.3 pg (28.2-35.7); Reticulocytes Absolute 0.08 B/L (32.2-175.7)
[2021-05-31 16:43] LABS: Folic Acid 6.7 ng/mL (2.76->20)
[2021-05-31 16:55] LABS: Ferritin > 2000.00 ng/mL (11.1-264)
--- NOTE | 2021-05-31 17:19 | PC.NURSE ---
This patient, Jules Mitchell, was received from [[id number]] on 05/31/21 at 1230. Patient/family oriented to unit policies and routines. Bedside shift report received from vision mixer. Pt. rapid response in dialysis room and intubated and then transferred to ICU.
[2021-05-31 17:32] LABS: Glucose Point of Care 181 mg/dl (65-105)
[2021-05-31 19:10] LABS: Hematocrit 32.5 % (42.0-52.0); Hemoglobin 11.4 g/dL (14.0-18.0)
--- NOTE | 2021-05-31 19:50 | PCRCNOTE ---
pt intubated- unable to give inhaler treatment.
[2021-05-31] MEDS: levETIRAcetam 500MG/NACL 100ML 500 MG/100 ML BAG 400 MG IVPB (20:19)
[2021-05-31] MEDS: PANTOPRAZOLE SODIUM IV 40 MG VIAL IV PUSH (20:19)
[2021-05-31] MEDS: MINERAL OIL/WHITE PETROLATUM OINTMENT 1 APPLIC EACH EYE (21:34)
[2021-06-01] VITALS (50 sets, daily range): BP systolic 54–139; BP diastolic 30–93; PULSE 63–100; RESP 11–19; TEMP 36.1–37.2; O2SAT 60–100; BMI 23.1
[2021-06-01 00:29] LABS: Glucose Point of Care 155 mg/dl (65-105)
[2021-06-01 00:44] LABS: Hematocrit 33.9 % (42.0-52.0); Hemoglobin 12.5 g/dL (14.0-18.0)
[2021-06-01 05:23] LABS: Glucose Point of Care 144 mg/dl (65-105)
[2021-06-01 05:32] LABS: Alveolar/Arterial O2 Gradient 299.8 mmHg; Base Excess ABG -1.5 mEq/l (+/-2.0); Carboxyhemoglobin 0.2 % THb (0-2.0); Fractional Inspired Oxygen 60 %; HCO3 ABG 21.4 mEq/l (22.0-26.0); Methemoglobin ABG 0.8 %THb (0-1.5); Oxygen Content ABG 16.2 %vol (16.0-22.0); Oxygen Saturation ABG 97.6 % (95.0-100.0); Oxyhemoglobin 95.2 % THb (90.0-100.0); PCO2 ABG 30.7 mmHg (35.0-45.0); PO2 ABG 94.2 mmHg (80.0-100.0); PO2 FiO2 Ratio Arterial Blood 1.57 %; Reduced Hemoglobin 3.8 %THb (0-5.0); pH ABG 7.462 (7.350-7.450)
[2021-06-01 05:34] LABS: Device VENTILATOR; Modified Allen's Test Pass; Site Drawn LEFT RADIAL
[2021-06-01 05:35] LABS: Arterial Blood Gas Vent Mode CMV; Arterial Blood Gas Ventilator rate 16 /MIN
[2021-06-01 05:37] LABS: Arterial Blood Gas PEEP 5 cmH2O; Arterial Blood Gas Tidal Volume 350 ml
[2021-06-01 07:41] LABS: Hematocrit 33.4 % (42.0-52.0); Hemoglobin 11.9 g/dL (14.0-18.0)
[2021-06-01 07:54] LABS: Alanine Aminotransferase 17 U/L (4-50); Albumin Level 3.5 g/dL (3.5-5.1); Alkaline Phosphatase 50 U/L (38-126); Anion Gap 13 mmol/L (8-16); Aspartate Amino Transferase 21 U/L (17-59); Bilirubin,Total 0.6 mg/dL (0.2-1.3); Blood Urea Nitrogen 119 mg/dL (9-20); Calcium 7.9 mg/dL (8.4-10.2); Carbon Dioxide 23 mmol/L (22-30); Chloride 100 mmol/L (98-107); Estimated CRCL calculation 5 ml/min; Estimated Glomerular Filt Rate 8; Glucose 143 mg/dL (65-110); Magnesium 2.3 mg/dL (1.6-2.3); Phosphorus 4.9 mg/dL (2.5-4.5); Potassium 4.4 mmol/L (3.4-5.0); Sodium 136 mmol/L (137-145)
--- NOTE | 2021-06-01 09:58 | WPDINTPN ---
Progress Note: A&P Assessment and Plan (1) Acute respiratory failure with hypoxia: Code(s): J96.01 - Acute respiratory failure with hypoxia Status: Acute Assessment and Plan: Patient intubated now for airway protection and hypoxia Chest x-ray and ABG reviewed Vent settings reviewed. wean FiO2. decrease tidal volume 320 (2) Multilobar lung infiltrate: Code(s): R91.8 - Other nonspecific abnormal finding of lung field Status: Acute Assessment and Plan: Suspect aspiration Patient has completed a course of antibiotics earlier this hospitalization continue Zosyn and repeat blood and sputum culture her pending (3) Pneumonia due to COVID-19 virus: Code(s): U07.1 - COVID-19; J12.82 - Pneumonia due to coronavirus disease 2018 Status: Acute Assessment and Plan: Patient was tested positive for COVID-19 He had finished a [address] course of dexamethasone CT findings did not suggest COVID pneumonia but more likely bacterial pneumonia No further treatment for COVID at this time (4) GI bleeding: Code(s): K92.2 - Gastrointestinal hemorrhage, unspecified Status: Acute Assessment and Plan: I suspect patient has GI bleed which has led to drop in his hemoglobin. Hemoglobin on 05/28 was 8.9 and 3.7 this morning. His BUN was elevated at 147 and he was on anticoagulation continue to hold Eliquis He has been transfused 4 units of PRBC and his hemoglobin has improved and is remained stable GI consulted and plan for EGD today NPO Despite multiple attempts me and nursing staff were unable to place OG or NG tube Ppi IV q.12 hours continue hemoglobin monitoring (5) Anemia: Code(s): D64.9 - Anemia, unspecified Status: Chronic Assessment and Plan: Likely secondary to GI bleed as above Hematology was consulted by Dr. 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 and age-related mild to moderate diffuse volume loss He was also uremic Minimize sedative use Pending ammonia and TSH level EEG was done today and results are pending (7) End stage renal disease: Code(s): N18.6 - End stage renal disease Status: Chronic Assessment and Plan: Patient received hemodialysis and 1.5 L fluid was removed Nephrology is already following and plan for again hemodialysis today (8) Fecal impaction: Code(s): K56.41 - Fecal impaction Status: Acute Assessment and Plan: 2/ CT abdomen pelvis showed - Large amount of stool throughout the colon was 7 cm ball of stool at rectum consistent with constipation and fecal impaction. Multiple gas and fluid-filled loops of small bowel which are not frankly dilated and with no discrete transition point which would favor an ileus over obstruction. patient's nurse perform digital disimpaction yesterday and significant amount of stool was removed after enema was unsuccessful continue daily enemas for now continue MiraLax Additional Plan DVT prophylaxis -SCDs Stress ulcer prophylaxis -IV PPI Nutrition -NPO Code Status - Full Code Total Critical Care Time - 60 minutes except separately billed procedures Due to a high probability of clinically significant, life threatening deterioration, the patient required my highest level of preparedness to intervene emergently and I personally spent this critical care time directly and personally managing the patient. This critical care time included obtaining a history; examining the patient; pulse oximetry; ordering and review of studies; arranging urgent treatment with development of a management plan; evaluation of patient's response to treatment; frequent reass
[2021-06-01] MEDS: LIDOCAINE HCL 1% LOCAL INJ 2 ML AMPUL 5 ML INFILTRATE (10:00)
--- NOTE | 2021-06-01 10:02 | PM.PNNEP ---
Progress Note: A&P Assessment and Plan (1) End stage renal disease: Code(s): N18.6 - End stage renal disease Status: Chronic Assessment and Plan: HD every Friday outpatient dialysis unit = [facility] primary inspector fabric = Dr. Blackman Due for dialysis today. On Friday he was unable to be dialyzed because of his medical condition. Yesterday he had an hour and a half of dialysis which he tolerated pretty well at since he had blood transfusions before that. Then his blood pressure dropped again so he was taken off dialysis and moved to the ICU. His blood pressure is okay right now; hopefully he will tolerate dialysis today. I am not trying for any fluid. His hemoglobin is much better so maybe he will have a better treatment.. (2) Acute respiratory failure with hypoxia: Code(s): J96.01 - Acute respiratory failure with hypoxia Status: Acute Assessment and Plan: due to COVID-19 noted to be hypoxic on admission supplemental oxygen PRN Off antibacterials. Still on 2L of oxygen (3) Pneumonia due to COVID-19 virus: Code(s): U07.1 - COVID-19; J12.82 - Pneumonia due to coronavirus disease 2019 Status: Acute Assessment and Plan: noted positive testing at [place] [facility] respiratory isolation has timed out. (4) Hypertension: Code(s): I10 - Essential (primary) hypertension Status: Chronic Assessment and Plan: Systolic blood pressure in the 110s and 120s lately. Lisinopril is on hold. Diltiazem is on board for heart rate management. (5) Anemia: Code(s): D64.9 - Anemia, unspecified Status: Chronic Assessment and Plan: Hemoglobin is of level Bowen now after transfusions. Await stool guaiac Iron levels okay He already received transfusions. Epogen with HD The patient is still ill overall. Mental status is still suboptimal. Hemoglobin is better and blood pressure is better. He is intubated. Discussed with Dr Serna Subjective Date/time seen: 06/01/21 10:02 Interval history: The patient was transferred to the ICU yesterday and intubated. He has been poorly interactive since then. He was following commands at the time of intubation Blood pressure was a bit soft last evening but has stabilized overnight. Exam Narrative: General: ill appearing male lying in the bed intubated. Heart: normal S1 and S2; no rub or gallop Lungs: Rare crackles on auscultation bilaterally Abdomen: soft, nontender, nondistended, positive bowel sounds Extremities:no edema or cyanosis Skin: No rash or subQ nodules Objective Data Vital Signs Vital Signs: Vital Signs - 24 hr 05/31/21 10:04 05/31/21 10:15 05/31/21 10:20 Temperature 36.7 C 36.5 C Pulse Rate 73 78 83 Respiratory Rate 22 H 18 Blood Pressure 126/54 L 158/64 H 164/69 H Pulse Oximetry 100 100 05/31/21 10:35 05/31/21 10:55 05/31/21 11:05 Temperature 36.4 C 36.4 C Pulse Rate 86 82 82 Respiratory Rate 18 18 Blood Pressure 151/48 H 160/65 H 160/65 H Pulse Oximetry 100 100 05/31/21 11:15 05/31/21 11:28 05/31/21 11:42 Temperature 36.4 C L Pulse Rate 89 88 60 Respiratory Rate 24 H Blood Pressure 127/56 L 99/52 L 106/55 L Pulse Oximetry 94 05/31/21 12:00 05/31/21 12:13 05/31/21 12:19 Temperature 36.4 C L 36.4 C L 36.4 C L Pulse Rate 57 L 108 H 108 H Respiratory Rate 4 L 4 L 4 L Blood Pressure 159/79 H 66/35 L 72/43 L Pulse Oximetry 05/31/21 12:25 05/31/21 14:00 05/31/21 14:25 Temperature 36.4 C L Pulse Rate 105 H 68 71 Respiratory Rate 15 Blood Pressure 144/61 H Pulse Oximetry 100 98 100 05/31/21 17:14 05/31/21 19:47 05/31/21 20:00 Temperature 36.3 C L Pulse Rate 64 74 70 Respiratory Rate 16 Blood Pressure 120/53 L Pulse Oximetry 100 100 100 05/31/21 21:00 05/31/21 21:31 05/31/21 22:00 Temperature 36.3 C L Pulse Rate 70 72 Respiratory Rate 16 16 Blood Pressur
--- NOTE | 2021-06-01 10:04 | WPDNEUROLOGY ---
Neurology EEG Report General Information Date of Study: 06/01/21 TEST eeg DIAGNOSIS possible seizures CONDITION OF RECORDING Unresponsive EEG NUMBER 22-20 CLINICAL HISTORY Patient is in ICU on a vent following cardiac arrest yesterday morning during dialysis. EEG DESCRIPTION whole record consists of low-voltage beta activity admixed with low to medium voltage 2 to 3 hertz per 2nd delta activity and superimposed by multiple muscle artifacts. Hyperventilation not done. Non paroxysmal. Nonfocal. Nonlateralizing. IMPRESSION Abnormal record due to the absence of normal background rhythm and due to the presence of bihemispheric delta activity admixed with multiple muscle artifacts .these abnormalities are suggestive of underlying organic or metabolic encephalopathy or postictal state .clinical correlation recommended
[2021-06-01] MEDS: levETIRAcetam 500MG/NACL 100ML 500 MG/100 ML BAG 400 MG IVPB ×2 (10:33→21:04)
[2021-06-01] MEDS: PANTOPRAZOLE SODIUM IV 40 MG VIAL IV PUSH ×2 (10:34→21:58)
[2021-06-01 10:54] LABS: Hematocrit 30.2 % (42.0-52.0); Hemoglobin 10.5 g/dL (14.0-18.0)
[2021-06-01 11:04] LABS: Ammonia < 9 umol/L (9-30)
--- NOTE | 2021-06-01 12:06 | WPDNEURCNPN ---
Assessment and Plan Additional Plan CT head on May 18, 2021 was negative, treatment will be continued as such subsequent an EEG will be obtained Consult date: 06/01/21 HPI: Jules Mitchell is a 75 year old maleAdmitted to the hospital for the complaints of difficulties in breathing in addition to the underlying history of end-stage renal disease for which patient is hemodialysis additionally he has ongoing history of hypertension dementia and chronic anticoagulation therapy , patient is receiving the treatment for the acute respiratory failure with hypoxia due to COVID-19 in addition to the antibiotics including ceftriaxone and azithromycin seen or bacterial known Review of Systems Review of Systems: All systems reviewed & are unremarkable except as noted in HPI and below PMFSH Past Medical History Medical History Chronic renal failure Social History Social History Smoking status: Never smoker Second hand tobacco smoke exposure: No Alcohol intake: never Substance use: never Substance use type: does not use Spiritual care concerns: No Meds Home Medications and Allergies Home Medications Medication Instructions Recorded Confirmed Type Eliquis 2.5 mg PO BID 05/18/21 05/19/21 History allopurinol 100 mg PO HS 05/18/21 05/19/21 History atorvastatin 20 mg PO HS 05/18/21 05/19/21 History furosemide 80 mg PO BID 05/18/21 05/19/21 History hydrocodone-acetaminophen 1 tablet PO Q6H PRN 05/18/21 05/19/21 History ropinirole 0.5 mg PO HS 05/18/21 05/19/21 History sevelamer carbonate 800 mg PO TID 05/18/21 05/19/21 History tamsulosin 0.4 mg PO HS 05/18/21 05/19/21 History diltiazem HCl [Cardizem CD] 120 mg PO DAILY 05/19/21 05/19/21 History albuterol sulfate [Proventil HFA] 2 puff INHALATION Q6HRT #8 g 05/30/21 Rx lisinopril 10 mg PO DAILY #30 tablet 05/30/21 Rx Allergies Allergy/AdvReac Type Severity Reaction Status Date / Time No Known Allergies Allergy Verified 05/18/21 21:05 Vital Signs Vital Signs - 24 hr 05/31/21 12:13 05/31/21 12:19 05/31/21 12:25 Temperature 36.4 C L 36.4 C L Pulse Rate 108 H 108 H 105 H Respiratory Rate 4 L 4 L Blood Pressure 66/35 L 72/43 L Pulse Oximetry 100 05/31/21 14:00 05/31/21 14:25 05/31/21 17:14 Temperature 36.4 C L Pulse Rate 68 71 64 Respiratory Rate 15 Blood Pressure 144/61 H Pulse Oximetry 98 100 100 05/31/21 19:47 05/31/21 20:00 05/31/21 21:00 Temperature 36.3 C L Pulse Rate 74 70 70 Respiratory Rate 16 16 Blood Pressure 120/53 L Pulse Oximetry 100 100 05/31/21 21:31 05/31/21 22:00 05/31/21 23:19 Temperature 36.3 C L Pulse Rate 72 73 Respiratory Rate 16 Blood Pressure 113/52 L Pulse Oximetry 100 100 06/01/21 00:00 06/01/21 01:47 06/01/21 02:00 Temperature 36.1 C L Pulse Rate 75 79 81 Respiratory Rate 16 16 Blood Pressure 114/52 L 106/80 Pulse Oximetry 97 98 96 06/01/21 02:46 06/01/21 04:00 06/01/21 05:43 Temperature 36.1 C L Pulse Rate 86 75 81 Respiratory Rate 18 16 Blood Pressure 117/59 L Pulse Oximetry 98 98 06/01/21 06:00 06/01/21 08:00 06/01/21 08:40 Temperature 37.2 C Pulse Rate 66 83 82 Respiratory Rate 18 15 Blood Pressure 72/41 L 103/54 L Pulse Oximetry 96 99 98 06/01/21 10:00 06/01/21 11:02 Temperature Pulse Rate 87 83 Respiratory Rate 17 Blood Pressure 104/39 L Pulse Oximetry 100 100 Exam Narrative: ill appear in no obvious acute distress head normocephalic with no cranial bruit ear nose throat examination normal neck supple with no meningeal signs no cervical bruits or thyromegaly no lymphadenopathy heart regular lungs with rhonchi abdomen is soft neurologically awake alert able to follow the instruction and has no obvious nystagmus chills grimace symmetrical and able to move both upper and lower extremities Results Labs CBC & Chem 7: 06/01/21 10
[2021-06-01] MEDS: PROPOFOL IV EMULSION 100 ML 20 MG IV CONT (12:35)
[2021-06-01 12:45] LABS: Glucose Point of Care 140 mg/dl (65-105)
[2021-06-01] MEDS: fentaNYL CITRATE INJ (*CRX) 100 MCG/2 ML VIAL 50 MCG IV PUSH (12:55)
--- NOTE | 2021-06-01 13:21 | PCFNICU ---
ICU Rounding Note: Pt current nutrition is NPO. Last recorded weight is 57.2 kg. Bowel Motility:+BM reported 2/4 Labs Reviewed:PO4 4.9,Glu 143,BUN 119, GFR 8,Cr 8.3,Na 136, Hct 33.4,Hgb 11.9 Meds Noted:Precedex, Zosyn, Miralax, Protonix, Keppra Skin: WNL Additional Notes: Patient currently on mechanical vent. NPO at this time with plans for EGD. Dialysis today. Tube feeding recommendations: Nepro at 20 ml/hr advance by 10 ml q 4 hours to goal rate of 40 ml/hr over 22 hours, which will provide 1584 kcals/71 gms protein/640 ml water. Free water flush 30 ml q 4 hours. Following daily in ICU rounds. Will monitor labs, medication, wt, and reported intake every 3 days .
[2021-06-01 17:07] LABS: Glucose Point of Care 115 mg/dl (65-105)
[2021-06-01] MEDS: MINERAL OIL/WHITE PETROLATUM OINTMENT 1 APPLIC EACH EYE ×2 (17:43→21:58)
[2021-06-01] MEDS: MIDAZOLAM HCL (*CRX) 2 MG/2 ML VIAL IV PUSH (17:55)
[2021-06-01] MEDS: NOREPINEPHRINE 8 MG/D5W 250 ML 8 MG/250 ML BAG 9.38 MG IV CONT (19:15)
[2021-06-01] MEDS: CENTRAL LINE FLUSH 10 ML IV PUSH (21:58)
[2021-06-02] VITALS (25 sets, daily range): BP systolic 111–160; BP diastolic 51–96; PULSE 65–101; RESP 12–20; TEMP 36.7–37.9; O2SAT 94–100
[2021-06-02 00:34] LABS: Glucose Point of Care 148 mg/dl (65-105)
[2021-06-02 05:41] LABS: Alveolar/Arterial O2 Gradient 93.5 mmHg; Base Excess ABG 3.4 mEq/l (+/-2.0); Carboxyhemoglobin 0.2 % THb (0-2.0); Fractional Inspired Oxygen 30 %; HCO3 ABG 26.5 mEq/l (22.0-26.0); Methemoglobin ABG 0.5 %THb (0-1.5); Oxygen Content ABG 14.8 %vol (16.0-22.0); Oxygen Saturation ABG 96.7 % (95.0-100.0); Oxyhemoglobin 94.2 % THb (90.0-100.0); PCO2 ABG 34.9 mmHg (35.0-45.0); PO2 ABG 79.4 mmHg (80.0-100.0); PO2 FiO2 Ratio Arterial Blood 2.65 %; Reduced Hemoglobin 5.1 %THb (0-5.0); Total Hemoglobin 11.1 g/dL (12.0-18.0); pH ABG 7.498 (7.350-7.450)
[2021-06-02 05:42] LABS: Device VENTILATOR; Modified Allen's Test Pass; Site Drawn LEFT RADIAL
[2021-06-02 05:43] LABS: Arterial Blood Gas PEEP 5 cmH2O; Arterial Blood Gas Tidal Volume 320 ml; Arterial Blood Gas Vent Mode CMV; Arterial Blood Gas Ventilator rate 16 /MIN
[2021-06-02 05:48] LABS: Glucose Point of Care 126 mg/dl (65-105)
[2021-06-02 05:53] LABS: Basophils Percent Auto 0.1 % (0.2-1.2); Eosinophils Percent Auto 0.3 % (0-4.4); Hematocrit 29.9 % (42.0-52.0); Hemoglobin 10.1 g/dL (14.0-18.0); Immature Granulocyte Absolute 0.29 K/mm3 (0.00-0.031); Immature Granulocyte Percent A 2.1 % (0-0.5); Lymphocytes Absolute Auto 0.56 K/mm3 (0.9-3.2); Lymphocytes Percent Auto 4.1 % (18.3-44.2); Mean Corpuscular HGB Conc 33.8 g/dl (32-36); Mean Corpuscular Hemoglobin 32.7 pg (26-34); Mean Corpuscular Volume 96.8 fl (80-100); Mean Platelet Volume 9.9 fl (7.4-10.4); Monocytes Absolute Auto 0.7 K/mm3 (0.1-0.6); Monocytes Percent Auto 5.3 % (2.6-8.5); Neutrophils Absolute Auto 12.1 K/mm3 (1.3-6.7); Neutrophils Percent Auto 88.1 % (45.5-73.1); Nucleated Red Blood Cells Absolute Auto 0.1 K/mm3 (0.0-0.012); Nucleated Red Blood Cells Perc 0.4 % (0.0-0.2); Platelet Count Result 110 k/mm3 (150-375); Red Blood Count 3.09 M/mm3 (4.6-6.20); Red Cell Distribution Width 19.9 % (11.5-14.5); White Blood Count 13.7 K/mm3 (4.5-10.0)
[2021-06-02 06:06] LABS: Alanine Aminotransferase 14 U/L (4-50); Albumin Level 3.2 g/dL (3.5-5.1); Alkaline Phosphatase 52 U/L (38-126); Anion Gap 9 mmol/L (8-16); Aspartate Amino Transferase 24 U/L (17-59); Bilirubin,Total 0.6 mg/dL (0.2-1.3); Blood Urea Nitrogen 61 mg/dL (9-20); Calcium 7.8 mg/dL (8.4-10.2); Carbon Dioxide 29 mmol/L (22-30); Chloride 98 mmol/L (98-107); Estimated CRCL calculation 8 ml/min; Estimated Glomerular Filt Rate 12; Glucose 135 mg/dL (65-110); Magnesium 2.2 mg/dL (1.6-2.3); Phosphorus 3.9 mg/dL (2.5-4.5); Potassium 4.2 mmol/L (3.4-5.0); Sodium 136 mmol/L (137-145)
[2021-06-02] MEDS: MINERAL OIL/WHITE PETROLATUM OINTMENT 1 APPLIC EACH EYE ×2 (08:20→20:47)
[2021-06-02] MEDS: PANTOPRAZOLE SODIUM IV 40 MG VIAL IV PUSH ×2 (08:20→20:47)
[2021-06-02] MEDS: levETIRAcetam 500MG/NACL 100ML 500 MG/100 ML BAG 400 MG IVPB ×2 (08:25→20:47)
[2021-06-02] MEDS: PROPOFOL IV EMULSION 100 ML 5.15 MG IV CONT ×2 (08:31→21:14)
--- NOTE | 2021-06-02 09:46 | WPDINTPN ---
Progress Note: A&P Assessment and Plan (1) Acute respiratory failure with hypoxia: Code(s): J96.01 - Acute respiratory failure with hypoxia Status: Acute Assessment and Plan: Patient intubated now for airway protection and hypoxia Chest x-ray and ABG reviewed Vent settings reviewed. will perform sedation holiday and evaluate for trial (2) Multilobar lung infiltrate: Code(s): R91.8 - Other nonspecific abnormal finding of lung field Status: Acute Assessment and Plan: Suspect aspiration Patient has completed a course of antibiotics earlier this hospitalization continue Zosyn and repeat blood and sputum culture are negative till now (3) Pneumonia due to COVID-19 virus: Code(s): U07.1 - COVID-19; J12.82 - Pneumonia due to coronavirus disease 2018 Status: Acute Assessment and Plan: Patient was tested positive for COVID-19 He had finished a 10 day course of dexamethasone CT findings did not suggest COVID pneumonia but more likely bacterial pneumonia No further treatment for COVID at this time (4) GI bleeding: Code(s): K92.2 - Gastrointestinal hemorrhage, unspecified Status: Acute Assessment and Plan: I suspect patient has GI bleed which has led to drop in his hemoglobin. Hemoglobin on 05/28 was 8.9 and 3.7 this morning. His BUN was elevated at 147 and he was on anticoagulation 2/4 EGD was performed and showed large Zenker's diverticulam, small hiatal hernia, gastritis with erythema and edematous changes, no ulcer seen continue to hold Eliquis for another 24 hours He has been transfused 4 units of PRBC and his hemoglobin has improved and is remained stable NPO for now and we have not been able to place an NG or OG multiple attempts. even GI was unable to place a gastric tube with EGD yesterday. I will request a fluoroscopic guided Dobbhoff if unable to extubate patient Ppi IV q.12 hours continue hemoglobin monitoring (5) Anemia: Code(s): D64.9 - Anemia, unspecified Status: Chronic Assessment and Plan: Likely secondary to GI bleed as above Hematology was consulted by Dr. 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 Will perform sedation holiday normal ammonia and TSH level 06/01 EEG showed Abnormal record due to the absence of normal background rhythm and due to the presence of bihemispheric delta activity admixed with multiple muscle artifacts. these abnormalities are suggestive of underlying organic or metabolic encephalopathy or postictal state .clinical correlation recommended neurology consulted andis following (7) End stage renal disease: Code(s): N18.6 - End stage renal disease Status: Chronic Assessment and Plan: Patient received hemodialysis yesterday Nephrology is already following (8) Fecal impaction: Code(s): K56.41 - Fecal impaction Status: Acute Assessment and Plan: 2 CT abdomen pelvis showed - Large amount of stool throughout the colon was 7 cm ball of stool at rectum consistent with constipation and fecal impaction. Multiple gas and fluid-filled loops of small bowel which are not frankly dilated and with no discrete transition point which would favor an ileus over obstruction. patient's nurse perform digital disimpaction 2/ and significant amount of stool was removed after enema was unsuccessful / enema was given and patient had bowel movement continue daily enemas for now continue MiraLax Additional Plan DVT prophylaxis -SCDs Stress ulcer
--- NOTE | 2021-06-02 11:34 | P.PNNP_ITS ---
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 Blackman * HD yesterday * since did not tolerated HD on or , plan another treatment likely tomorrow (2) Acute respiratory failure with hypoxia: Code(s): J96.01 - Acute respiratory failure with hypoxia Status: Acute Assessment and Plan: * due to COVID-19, bacterial pneumonia, and possibly aspiration * on ventilator support * on antibiotic therapy * wean as tolerated (3) Pneumonia due to COVID-19 virus: Code(s): U07.1 - COVID-19; J12.82 - Pneumonia due to coronavirus disease 2018 Status: Acute Assessment and Plan: * noted positive testing at [place] [facility] * completed course of steroids * imaging more consistent with bacterial pneumonia than COVID-19 (4) Hypotension: Code(s): I95.9 - Hypotension, unspecified Status: Acute Assessment and Plan: * vasopressor support * follow trend of hemodynamics (5) Anemia: Code(s): D64.9 - Anemia, unspecified Status: Chronic Assessment and Plan: * partly related to ESRD but suspect acute worsening due to GI bleed * s/p EGD (06/01/21) with large Zenker's diverticulum, small hiatal hernia, gastritis but no ulcer seen * s/p PRBC transfusiuon (at least 4 units to date) * may need doboff if unable to extubated * follow trend of H/H * Epogen with HD (6) Fecal impaction: Code(s): K56.41 - Fecal impaction Status: Acute Assessment and Plan: * resolving * s/p manunal disimpaction * on bowel regimen Will continue to follow. Subjective Date/time seen: 06/02/21 11:34 Chart reviewed since last seen - assuming care for Dr. Fuentes; remains intubated and on mechanical ventilator support as well as vasopressor therapy; no new issues/events overnight or earlier this AM. Exam Narrative: General: ill appearing AA male lying in the bed intubated Heart: normal S1 and S2; no rub Lungs: a few crackles on auscultation bilaterally Abdomen: soft, nontender, nondistended, positive bowel sounds Extremities: no edema or cyanosis Skin: warm and dry Objective Data Vital Signs Vital Signs: Vital Signs Temp Pulse Resp BP Pulse Ox 06/02/21 11:33 87 99 06/02/21 10:00 96 17 125/57 L 99 06/02/21 08:00 37.9 C H 94 14 127/55 L 99 06/02/21 07:58 94 99 06/02/21 06:06 90 115/70 06/02/21 06:00 89 17 115/70 98 06/02/21 05:57 97 17 112/61 06/02/21 05:17 86 99 06/02/21 04:00 36.7 C 85 20 127/66 98 06/02/21 02:48 65 144/89 H 06/02/21 02:30 88 18 144/89 H 94 06/02/21 01:50 75 100 06/02/21 01:06 81 100 06/02/21 00:30 37.4 C 83 18 124/51 L 99 06/02/21 00:00 81 06/01/21 22:58 80 97 06/01/21 22:30 87 99 06/01/21 22:00 36.4 C 78 16 109/50 L 98 06/01/21 21:40 79 17 98 06/01/21 21:15 84 76/30 L 06/01/21 21:03 77 88/44 L 06/01/21 20:34 83 96 06/01/21 20:21 92 18 02
--- NOTE | 2021-06-02 11:34 | PM.PNNEP ---
Progress Note: A&P Assessment and Plan (1) End stage renal disease: Code(s): N18.6 - End stage renal disease Status: Chronic Assessment and Plan: outpatient schedule of HD every Friday (prior to COVID positivity) outpatient dialysis unit = [facility] primary bobj developer = Dr. Blackman HD yesterday since did not tolerated HD on or , plan another treatment likely tomorrow (2) Acute respiratory failure with hypoxia: Code(s): J96.01 - Acute respiratory failure with hypoxia Status: Acute Assessment and Plan: due to COVID-19, bacterial pneumonia, and possibly aspiration on ventilator support on antibiotic therapy wean as tolerated (3) Pneumonia due to COVID-19 virus: Code(s): U07.1 - COVID-19; J12.82 - Pneumonia due to coronavirus disease 2018 Status: Acute Assessment and Plan: noted positive testing at [place] [facility] completed course of steroids imaging more consistent with bacterial pneumonia than COVID-19 (4) Hypotension: Code(s): I95.9 - Hypotension, unspecified Status: Acute Assessment and Plan: vasopressor support follow trend of hemodynamics (5) Anemia: Code(s): D64.9 - Anemia, unspecified Status: Chronic Assessment and Plan: partly related to ESRD but suspect acute worsening due to GI bleed s/p EGD (06/01/21) with large Zenker's diverticulum, small hiatal hernia, gastritis but no ulcer seen s/p PRBC transfusiuon (at least 4 units to date) may need doboff if unable to extubated follow trend of H/H Epogen with HD (6) Fecal impaction: Code(s): K56.41 - Fecal impaction Status: Acute Assessment and Plan: resolving s/p manunal disimpaction on bowel regimen Will continue to follow. Subjective Date/time seen: 06/02/21 11:34 Chart reviewed since last seen - assuming care for Dr. Fuentes; remains intubated and on mechanical ventilator support as well as vasopressor therapy; no new issues/events overnight or earlier this AM. Exam Narrative: General: ill appearing AA male lying in the bed intubated Heart: normal S1 and S2; no rub Lungs: a few crackles on auscultation bilaterally Abdomen: soft, nontender, nondistended, positive bowel sounds Extremities: no edema or cyanosis Skin: warm and dry Objective Data Vital Signs Vital Signs: Vital Signs Temp Pulse Resp BP Pulse Ox 06/02/21 11:33 87 99 06/02/21 10:00 96 17 125/57 L 99 06/02/21 08:00 37.9 C H 94 14 127/55 L 99 06/02/21 07:58 94 99 06/02/21 06:06 90 115/70 06/02/21 06:00 89 17 115/70 98 06/02/21 05:57 97 17 112/61 06/02/21 05:17 86 99 06/02/21 04:00 36.7 C 85 20 127/66 98 06/02/21 02:48 65 144/89 H 06/02/21 02:30 88 18 144/89 H 94 06/02/21 01:50 75 100 06/02/21 01:06 81 100 06/02/21 00:30 37.4 C 83 18 124/51 L 99 06/02/21 00:00 81 06/01/21 22:58 80 97 06/01/21 22:30 87 99 06/01/21 22:00 36.4 C 78 16 109/50 L 98 06/01/21 21:40 79 17 98 06/01/21 21:15 84 76/30 L 06/01/21 21:03 77 88/44 L 06/01/21 20:34 83 96 06/01/21 20:21 92 18 06/01/21 20:00 83 18 125/39 L 97 06/01/21 19:45 88 127/61 06/01/21 19:30 88 122/60 06/01/21 19:15 83 79/52 L 06/01/21 18:17 97 15 06/01/21 18:00 85 16 75/48 L 60 L 06/01/21 17:53 99 96 06/01/21 16:00 37.2 C 100 17 106/59 L 98 06/01/21 15:28 84 100 06/01/21 15:01 91 17 64/42 L 97 06/01/21 14:57 95 17 67/48 L 98 06/01/21 14:52 90 17 54/43 L 98 06/01/21 14:47 90 17 80/43 L 98 06/01/21 14:42 95 11 L 116/64 96 06/01/21 14:31 97 17 102/52 L 95 06/01/21 14:15 36.2 C L 96 19 139/66 06/01/21 14:00 100 17 106/59 L 98 06/01/21 13:45 100 125/93 H 06/01/21 13:15 91 95/53 L 06/01/21 13:00 93 109/56 L 02/0
[2021-06-02 12:36] LABS: Glucose Point of Care 120 mg/dl (65-105)
--- NOTE | 2021-06-02 13:02 | PM.IMPN ---
Progress Note: A&P Assessment and Plan (1) Acute respiratory failure with hypoxia: Code(s): J96.01 - Acute respiratory failure with hypoxia Status: Acute Assessment and Plan: Patient intubated now for airway protection and hypoxia Chest x-ray and ABG reviewed Vent settings reviewed. wean FiO2. decrease tidal volume 320 (2) Multilobar lung infiltrate: Code(s): R91.8 - Other nonspecific abnormal finding of lung field Status: Acute Assessment and Plan: Suspect aspiration Patient has completed a course of antibiotics earlier this hospitalization continue Zosyn and repeat blood and sputum culture her pending (3) Pneumonia due to COVID-19 virus: Code(s): U07.1 - COVID-19; J12.82 - Pneumonia due to coronavirus disease 2018 Status: Acute Assessment and Plan: Patient was tested positive for COVID-19 He had finished a [address] course of dexamethasone CT findings did not suggest COVID pneumonia but more likely bacterial pneumonia No further treatment for COVID at this time (4) GI bleeding: Code(s): K92.2 - Gastrointestinal hemorrhage, unspecified Status: Acute Assessment and Plan: I suspect patient has GI bleed which has led to drop in his hemoglobin. Hemoglobin on 05/28 was 8.9 and 3.7 this morning. His BUN was elevated at 147 and he was on anticoagulation continue to hold Eliquis He has been transfused 4 units of PRBC and his hemoglobin has improved and is remained stable GI consulted and plan for EGD today NPO Despite multiple attempts me and nursing staff were unable to place OG or NG tube Ppi IV q.12 hours continue hemoglobin monitoring (5) Anemia: Code(s): D64.9 - Anemia, unspecified Status: Chronic Assessment and Plan: Likely secondary to GI bleed as above Hematology was consulted by Dr. 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 and age-related mild to moderate diffuse volume loss He was also uremic Minimize sedative use Pending ammonia and TSH level EEG was done today and results are pending (7) End stage renal disease: Code(s): N18.6 - End stage renal disease Status: Chronic Assessment and Plan: Patient received hemodialysis and 1.5 L fluid was removed Nephrology is already following and plan for again hemodialysis today (8) Fecal impaction: Code(s): K56.41 - Fecal impaction Status: Acute Assessment and Plan: 05/31 CT abdomen pelvis showed - Large amount of stool throughout the colon was 7 cm ball of stool at rectum consistent with constipation and fecal impaction. Multiple gas and fluid-filled loops of small bowel which are not frankly dilated and with no discrete transition point which would favor an ileus over obstruction. patient's nurse perform digital disimpaction yesterday and significant amount of stool was removed after enema was unsuccessful continue daily enemas for now continue MiraLax Subjective Date/time seen: 06/02/21 13:02 05/29/2021 Interval history: patient with COVID, and with end-stage renal disease on hemodialysis today during dialysis patient was tremulous and concern for seizure however patient was not quite post ictal he was hypotensive and dialysis was stopped. CT scan of the chest with patchy bilateral airspace disease 05/25/2021 possible COVID versus bacterial pneumonia Procalcitonin was high at 3.3 suggestive of bacterial involvement On ceftriaxone and azithromycin. Will discontinue azithromycin as already completed 6 days course, and will complete 7 day course of IV antibiotics tomorrow and will stop the antibiotic, will be seen by Nephrology and marisela
[2021-06-02] MEDS: CENTRAL LINE FLUSH 10 ML IV PUSH ×4 (14:12→20:48)
[2021-06-02 18:23] LABS: Glucose Point of Care 96 mg/dl (65-105)
[2021-06-02 19:56] LABS: Haptoglobin 104 mg/dL (43-212)
[2021-06-02] MEDS: TAMSULOSIN HCL 0.4 MG CAPSULE PO (20:47)
[2021-06-02] MEDS: allopurinoL 100 MG TABLET PO (20:47)
[2021-06-02] MEDS: ATORVASTATIN 20 MG TABLET PO (20:49)
[2021-06-03] VITALS (37 sets, daily range): BP systolic 72–158; BP diastolic 40–94; PULSE 77–106; RESP 12–23; TEMP 35.7–37.2; O2SAT 93–100
[2021-06-03 00:08] LABS: Glucose Point of Care 104 mg/dl (65-105)
[2021-06-03 04:35] LABS: Alanine Aminotransferase 14 U/L (4-50); Alkaline Phosphatase 52 U/L (38-126); Anion Gap 9 mmol/L (8-16); Aspartate Amino Transferase 20 U/L (17-59); Bilirubin,Total 0.6 mg/dL (0.2-1.3); Blood Urea Nitrogen 68 mg/dL (9-20); Carbon Dioxide 27 mmol/L (22-30); Chloride 99 mmol/L (98-107); Estimated CRCL calculation 6 ml/min; Estimated Glomerular Filt Rate 9; Glucose 98 mg/dL (65-110); Magnesium 2.3 mg/dL (1.6-2.3); Phosphorus 4.7 mg/dL (2.5-4.5); Potassium 3.9 mmol/L (3.4-5.0); Sodium 135 mmol/L (137-145)
[2021-06-03] MEDS: CENTRAL LINE FLUSH 10 ML IV PUSH ×4 (05:37→20:39)
[2021-06-03 06:51] LABS: Alveolar/Arterial O2 Gradient 73.3 mmHg; Base Excess ABG -0.7 mEq/l (+/-2.0); Carboxyhemoglobin 0.3 % THb (0-2.0); Fractional Inspired Oxygen 25 %; Methemoglobin ABG 0.3 %THb (0-1.5); Oxygen Content ABG 15.7 %vol (16.0-22.0); Oxygen Saturation ABG 93.3 % (95.0-100.0); Oxyhemoglobin 90.7 % THb (90.0-100.0); PCO2 ABG 34.6 mmHg (35.0-45.0); PO2 ABG 63.9 mmHg (80.0-100.0); PO2 FiO2 Ratio Arterial Blood 2.56 %; Reduced Hemoglobin 8.7 %THb (0-5.0); Total Hemoglobin 12.3 g/dL (12.0-18.0)
[2021-06-03 06:52] LABS: Device VENTILATOR; Modified Allen's Test Unable to perform; Site Drawn RIGHT RADIAL
[2021-06-03 06:53] LABS: Arterial Blood Gas PEEP 5 cmH2O; Arterial Blood Gas Tidal Volume 320 ml; Arterial Blood Gas Vent Mode CMV; Arterial Blood Gas Ventilator rate 16 /MIN
[2021-06-03 08:16] LABS: Hematocrit 29.5 % (42.0-52.0); Hemoglobin 9.6 g/dL (14.0-18.0); Mean Corpuscular HGB Conc 32.5 g/dl (32-36); Mean Corpuscular Hemoglobin 32.2 pg (26-34); Mean Platelet Volume 9.1 fl (7.4-10.4); Platelet Count Result 85 k/mm3 (150-375); Red Blood Count 2.98 M/mm3 (4.6-6.20); Red Cell Distribution Width 18.6 % (11.5-14.5); White Blood Count 10.4 K/mm3 (4.5-10.0)
[2021-06-03] MEDS: polyethylene glycoL 3350 17 GM POWD.PACK PO (08:17)
[2021-06-03] MEDS: MINERAL OIL/WHITE PETROLATUM OINTMENT 1 APPLIC EACH EYE ×2 (08:17→20:25)
[2021-06-03] MEDS: PANTOPRAZOLE SODIUM IV 40 MG VIAL IV PUSH ×2 (08:17→20:25)
[2021-06-03] MEDS: levETIRAcetam 500MG/NACL 100ML 500 MG/100 ML BAG 400 MG IVPB ×2 (08:21→20:24)
--- NOTE | 2021-06-03 08:42 | WPDINTPN ---
Progress Note: A&P Assessment and Plan (1) Acute respiratory failure with hypoxia: Code(s): J96.01 - Acute respiratory failure with hypoxia Status: Acute Assessment and Plan: Patient intubated now for airway protection and hypoxia Chest x-ray and shows bilateral infiltrates likely pulmonary edema. He needs more fluid off from dialysis to give him best chance of weaning ABG reviewed Vent settings reviewed. will plan for breathing trial after dialysis today (2) Multilobar lung infiltrate: Code(s): R91.8 - Other nonspecific abnormal finding of lung field Status: Acute Assessment and Plan: Suspect aspiration Patient has completed a course of antibiotics earlier this hospitalization continue Zosyn and repeat blood and sputum culture her pending (3) Pneumonia due to COVID-19 virus: Code(s): U07.1 - COVID-19; J12.82 - Pneumonia due to coronavirus disease 2018 Status: Acute Assessment and Plan: Patient was tested positive for COVID-19 He had finished a [address] course of dexamethasone CT findings did not suggest COVID pneumonia but more likely bacterial pneumonia No further treatment for COVID at this time (4) GI bleeding: Code(s): K92.2 - Gastrointestinal hemorrhage, unspecified Status: Acute Assessment and Plan: I suspect patient has GI bleed which has led to drop in his hemoglobin. Hemoglobin on 05/28 was 8.9 and 3.7 this morning. His BUN was elevated at 147 and he was on anticoagulation 2/4 EGD was performed and showed large Zenker's diverticulam, small hiatal hernia, gastritis with erythema and edematous changes, no ulcer seen continue to hold Eliquis for now will start prophylactic dose to Lovenox. If hemoglobin remains stable would advance to full dose He has been transfused 4 units of PRBC and his hemoglobin has improved and is remained stable NPO for now and we have not been able to place an NG or OG multiple attempts. even GI was unable to place a gastric tube with EGD yesterday. 2/4 Fluoroscopic guided Dobbhoff was placed with difficulty yesterday Ppi IV q.12 hours continue hemoglobin monitoring (5) Anemia: Code(s): D64.9 - Anemia, unspecified Status: Chronic Assessment and Plan: Likely secondary to GI bleed as above Hematology was consulted by Dr. 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 Will perform sedation holiday after hemodialysis but he is now following commands normal ammonia and TSH level / EEG showed Abnormal record due to the absence of normal background rhythm and due to the presence of bihemispheric delta activity admixed with multiple muscle artifacts. these abnormalities are suggestive of underlying organic or metabolic encephalopathy or postictal state .clinical correlation recommended neurology consulted and is following (7) End stage renal disease: Code(s): N18.6 - End stage renal disease Status: Chronic Assessment and Plan: Nephrology is already following and plan for again hemodialysis today (8) Fecal impaction: Code(s): K56.41 - Fecal impaction Status: Acute Assessment and Plan: 2/ CT abdomen pelvis showed - Large amount of stool throughout the colon was 7 cm ball of stool at rectum consistent with constipation and fecal impaction. Multiple gas and fluid-filled loops of small bowel which are not frankly dilated and with no discrete transition point which would favor an ileus over obstruction. patient's nurse perform digital disimpaction 2
--- NOTE | 2021-06-03 12:47 | PM.PNNEP ---
Progress Note: A&P Assessment and Plan (1) End stage renal disease: Code(s): N18.6 - End stage renal disease Status: Chronic Assessment and Plan: outpatient schedule of HD every Friday (prior to COVID positivity) outpatient dialysis unit = [facility] primary magneto repairer = Dr. Blackman HD today - push fluid removal as tolerated by hemodynamics since did not tolerated HD on or ; last HD on Friday (2) Acute respiratory failure with hypoxia: Code(s): J96.01 - Acute respiratory failure with hypoxia Status: Acute Assessment and Plan: due to COVID-19, bacterial pneumonia, and possibly aspiration on ventilator support on antibiotic therapy wean as tolerated (3) Pneumonia due to COVID-19 virus: Code(s): U07.1 - COVID-19; J12.82 - Pneumonia due to coronavirus disease 2019 Status: Acute Assessment and Plan: noted positive testing at [place] [facility] completed course of steroids imaging more consistent with bacterial pneumonia than COVID-19 (4) Hypotension: Code(s): I95.9 - Hypotension, unspecified Status: Acute Assessment and Plan: BP doing better OFF vasopressor support follow trend of hemodynamics (5) Anemia: Code(s): D64.9 - Anemia, unspecified Status: Chronic Assessment and Plan: partly related to ESRD but suspect acute worsening due to GI bleed s/p EGD (06/01/21) with large Zenker's diverticulum, small hiatal hernia, gastritis but no ulcer seen s/p PRBC transfusiuon (at least 4 units to date) may need doboff if unable to extubated follow trend of H/H Epogen with HD (6) Fecal impaction: Code(s): K56.41 - Fecal impaction Status: Acute Assessment and Plan: resolving s/p manunal disimpaction on bowel regimen Will continue to follow. Subjective Date/time seen: 06/03/21 12:47 Tolerating dialysis treatment at the time of my visit (seen on HD at 12:30PM); had doboff placed by Radiology yesterday with some difficulty; no other acute issues/events overnight or early this morning; further attempts at weaning following dialysis today. Exam Narrative: General: ill appearing AA male lying in the bed intubated Heart: normal S1 and S2; no rub Lungs: some crackles on auscultation bilaterally Abdomen: soft, nontender, nondistended, positive bowel sounds Extremities: no edema or cyanosis Skin: warm and intact Objective Data Vital Signs Vital Signs: Vital Signs Temp Pulse Resp BP Pulse Ox 06/03/21 12:45 101 H 122/64 06/03/21 12:30 99 133/72 06/03/21 12:15 92 113/52 L 06/03/21 12:00 36.6 C 94 17 127/54 L 96 06/03/21 10:46 95 98 06/03/21 10:00 90 23 H 131/61 98 06/03/21 08:30 95 95 06/03/21 08:00 37.2 C 94 17 124/60 95 06/03/21 06:33 102 H 96 06/03/21 06:00 100 18 158/60 H 93 06/03/21 04:00 37.0 C 85 19 126/61 97 06/03/21 03:49 131/94 H 06/03/21 02:02 77 99 06/03/21 02:00 85 19 130/66 99 06/03/21 00:12 87 145/51 H 06/03/21 00:00 37.2 C 77 18 145/51 H 100 06/02/21 23:09 96 100 06/02/21 22:00 86 18 111/57 L 98 06/02/21 20:44 92 98 06/02/21 20:00 36.9 C 92 18 134/62 98 06/02/21 18:00 77 12 160/96 H 100 06/02/21 16:31 94 98 06/02/21 16:00 37.0 C 84 17 115/70 97 06/02/21 14:05 88 99 06/02/21 14:00 81 16 113/78 100 Intake/Output Intake/Output: Intake & Output 05/31/21 06/01/21 06/02/21 06/03/21 23:59 23:59 23:59 23:59 Intake Total 1448 350 670 190 Output Total 1943 108 175 200 Balance -495 242 495 -10 Meds/Results Medications: Active Medications Generic Name Dose Route Start Last Admin Trade Name Freq PRN Reason Stop Dose Admin Acetaminophen 650 mg 05/25/21 10:22 05/25/21 12:11 Acetaminophen 325 Mg Tablet PO 650 mg Q6H PRN Administration Mild Pain (1-3) or Fever [place]
--- NOTE | 2021-06-03 12:47 | P.PNNP_ITS ---
Progress Note: A&P Assessment and Plan (1) End stage renal disease: Code(s): N18.6 - End stage renal disease Status: Chronic Assessment and Plan: * outpatient schedule of HD every Friday (prior to COVID positivity) * outpatient dialysis unit = [facility] * primary physics professor = Dr. Blackamn * HD today - push fluid removal as tolerated by hemodynamics * since did not tolerated HD on or ; last HD on Friday (2) Acute respiratory failure with hypoxia: Code(s): J96.01 - Acute respiratory failure with hypoxia Status: Acute Assessment and Plan: * due to COVID-19, bacterial pneumonia, and possibly aspiration * on ventilator support * on antibiotic therapy * wean as tolerated (3) Pneumonia due to COVID-19 virus: Code(s): U07.1 - COVID-19; J12.82 - Pneumonia due to coronavirus disease 2018 Status: Acute Assessment and Plan: * noted positive testing at [facility] * completed course of steroids * imaging more consistent with bacterial pneumonia than COVID-19 (4) Hypotension: Code(s): I95.9 - Hypotension, unspecified Status: Acute Assessment and Plan: * BP doing better OFF vasopressor support * follow trend of hemodynamics (5) Anemia: Code(s): D64.9 - Anemia, unspecified Status: Chronic Assessment and Plan: * partly related to ESRD but suspect acute worsening due to GI bleed * s/p EGD (06/01/21) with large Zenker's diverticulum, small hiatal hernia, gastritis but no ulcer seen * s/p PRBC transfusiuon (at least 4 units to date) * may need doboff if unable to extubated * follow trend of H/H * Epogen with HD (6) Fecal impaction: Code(s): K56.41 - Fecal impaction Status: Acute Assessment and Plan: * resolving * s/p manunal disimpaction * on bowel regimen Will continue to follow. Subjective Date/time seen: 06/03/21 12:47 Tolerating dialysis treatment at the time of my visit (seen on HD at 12:30PM); had doboff placed by Radiology yesterday with some difficulty; no other acute issues/events overnight or early this morning; further attempts at weaning following dialysis today. Exam Narrative: General: ill appearing AA male lying in the bed intubated Heart: normal S1 and S2; no rub Lungs: some crackles on auscultation bilaterally Abdomen: soft, nontender, nondistended, positive bowel sounds Extremities: no edema or cyanosis Skin: warm and intact Objective Data Vital Signs Vital Signs: Vital Signs Temp Pulse Resp BP Pulse Ox 06/03/21 12:45 101 H 122/64 06/03/21 12:30 99 133/72 06/03/21 12:15 92 113/52 L 06/03/21 12:00 36.6 C 94 17 127/54 L 96 06/03/21 10:46 95 98 06/03/21 10:00 90 23 H 131/61 98 06/03/21 08:30 95 95 06/03/21 08:00 37.2 C 94 17 124/60 95 06/03/21 06:33 102 H 96 06/03/21 06:00 100 18 158/60 H 93 06/03/21 04:00 37.0 C 85 19 126/61 97 06/03/21 03:49 131/94 H 06/03/21 02:02 77 99 06/03/21 02:00 85 19 130/66 99 06/03/21 00:12 87 145/51 H 06/03/21 00:00 37.2 C 77 18 145/51 H 100 06/02/21 23:09 96 100 06/02/21 22:00 86 18 111/57 L 98 06/02/21 20:44 92 98 06/02/21 20:00 36.9 C 92 18 134/62 98
[2021-06-03] MEDS: PROPOFOL IV EMULSION 100 ML 5.15 MG IV CONT (12:50)
--- NOTE | 2021-06-03 12:52 | P.PNIM_ITS ---
Progress Note: A&P Assessment and Plan (1) Acute respiratory failure with hypoxia: Code(s): J96.01 - Acute respiratory failure with hypoxia Status: Acute Assessment and Plan: Patient intubated now for airway protection and hypoxia Chest x-ray and shows bilateral infiltrates likely pulmonary edema. He needs more fluid off from dialysis to give him best chance of weaning ABG reviewed Vent settings reviewed. will plan for breathing trial after dialysis today (2) Multilobar lung infiltrate: Code(s): R91.8 - Other nonspecific abnormal finding of lung field Status: Acute Assessment and Plan: Suspect aspiration Patient has completed a course of antibiotics earlier this hospitalization continue Zosyn and repeat blood and sputum culture her pending (3) Pneumonia due to COVID-19 virus: Code(s): U07.1 - COVID-19; J12.82 - Pneumonia due to coronavirus disease 2018 Status: Acute Assessment and Plan: Patient was tested positive for COVID-19 He had finished a 10 [address] course of dexamethasone CT findings did not suggest COVID pneumonia but more likely bacterial pneumonia No further treatment for COVID at this time (4) GI bleeding: Code(s): K92.2 - Gastrointestinal hemorrhage, unspecified Status: Acute Assessment and Plan: I suspect patient has GI bleed which has led to drop in his hemoglobin. Hemoglobin on 05/28 was 8.9 and 3.7 this morning. His BUN was elevated at 147 and he was on anticoagulation 2/4 EGD was performed and showed large Zenker's diverticulam, small hiatal hernia, gastritis with erythema and edematous changes, no ulcer seen continue to hold Eliquis for now will start prophylactic dose to Lovenox. If hemoglobin remains stable would advance to full dose He has been transfused 4 units of PRBC and his hemoglobin has improved and is remained stable NPO for now and we have not been able to place an NG or OG multiple attempts. even GI was unable to place a gastric tube with EGD yesterday. 2/4 Fluoroscopic guided Dobbhoff was placed with difficulty yesterday Ppi IV q.12 hours continue hemoglobin monitoring (5) Anemia: Code(s): D64.9 - Anemia, unspecified Status: Chronic Assessment and Plan: Likely secondary to GI bleed as above Hematology was consulted by Dr. 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 Will perform sedation holiday after hemodialysis but he is now following commands normal ammonia and TSH level / EEG showed Abnormal record due to the absence of normal background rhythm and due to the presence of bihemispheric delta activity admixed with multiple muscle artifacts. these abnormalities are suggestive of underlying organic or metabolic encephalopathy or postictal state .clinical correlation recommended neurology consulted and is following (7) End stage renal disease: Code(s): N18.6 - End stage renal disease Status: Chronic Assessment and Plan: Nephrology is already following and plan for again hemodialysis today (8) Fecal impaction: Code(s): K56.41 - Fecal impaction Status: Acute Assessment and Plan: 2/ CT abdomen pelvis showed -
[2021-06-03] MEDS: EPOETIN ALFA-EPBX 10,000 UNITS/ML VIAL 10000 UNITS IV PUSH (12:55)
[2021-06-03] MEDS: ENOXAPARIN 30 MG/0.3 ML SYRINGE SUB-Q (12:56)
[2021-06-03 13:42] LABS: Glucose Point of Care 100 mg/dl (65-105)
[2021-06-03 19:37] LABS: Glucose Point of Care 119 mg/dl (65-105)
[2021-06-03] MEDS: ATORVASTATIN 20 MG TABLET PO (20:25)
[2021-06-03] MEDS: TAMSULOSIN HCL 0.4 MG CAPSULE PO (20:26)
[2021-06-03] MEDS: allopurinoL 100 MG TABLET PO (20:26)
[2021-06-03] MEDS: SODIUM CHLORIDE 0.9% IV 1,000 ML 999 ML IV CONT ×4 (20:35→20:37)
[2021-06-03] MEDS: ALBUMIN HUMAN 25% 12.5 GM/50ML 100 ML 100 GM (20:36)
[2021-06-03] MEDS: SODIUM CHLORIDE 0.9% IV 2,000 ML 999 ML (20:36)
[2021-06-03] MEDS: PROPOFOL IV EMULSION 100 ML 6.86 MG IV CONT (22:23)
[2021-06-04] VITALS (27 sets, daily range): BP systolic 116–165; BP diastolic 46–95; PULSE 80–113; RESP 12–30; TEMP 36.1–37.7; O2SAT 93–100
[2021-06-04 00:36] LABS: Glucose Point of Care 104 mg/dl (65-105)
[2021-06-04 04:37] LABS: Hematocrit 29.1 % (42.0-52.0); Hemoglobin 9.6 g/dL (14.0-18.0); Mean Platelet Volume 10.2 fl (7.4-10.4); Platelet Count Result 101 k/mm3 (150-375); Red Cell Distribution Width 18.4 % (11.5-14.5); White Blood Count 6.9 K/mm3 (4.5-10.0)
[2021-06-04 05:01] LABS: Alanine Aminotransferase 15 U/L (4-50); Alkaline Phosphatase 74 U/L (38-126); Anion Gap 6 mmol/L (8-16); Aspartate Amino Transferase 19 U/L (17-59); Bilirubin,Total 0.4 mg/dL (0.2-1.3); Blood Urea Nitrogen 33 mg/dL (9-20); Calcium 8.1 mg/dL (8.4-10.2); Carbon Dioxide 29 mmol/L (22-30); Chloride 101 mmol/L (98-107); Estimated CRCL calculation 9 ml/min; Estimated Glomerular Filt Rate 14; Glucose 126 mg/dL (65-110); Magnesium 2.2 mg/dL (1.6-2.3); Phosphorus 3.5 mg/dL (2.5-4.5); Potassium 3.8 mmol/L (3.4-5.0); Sodium 136 mmol/L (137-145)
[2021-06-04] MEDS: CENTRAL LINE FLUSH 10 ML IV PUSH ×4 (05:09→21:23)
[2021-06-04 06:34] LABS: Alveolar/Arterial O2 Gradient 135.3 mmHg; Base Excess ABG 4.2 mEq/l (+/-2.0); Carboxyhemoglobin 0.2 % THb (0-2.0); Fractional Inspired Oxygen 35 %; HCO3 ABG 27.4 mEq/l (22.0-26.0); Methemoglobin ABG 0.2 %THb (0-1.5); Oxygen Content ABG 13.7 %vol (16.0-22.0); Oxygen Saturation ABG 95.9 % (95.0-100.0); PCO2 ABG 35.6 mmHg (35.0-45.0); PO2 ABG 72.9 mmHg (80.0-100.0); PO2 FiO2 Ratio Arterial Blood 2.08 %; Reduced Hemoglobin 5.6 %THb (0-5.0); Total Hemoglobin 10.3 g/dL (12.0-18.0)
[2021-06-04 06:36] LABS: Device VENTILATOR; Modified Allen's Test Pass; Site Drawn LEFT RADIAL; pH ABG 7.504 (7.350-7.450)
[2021-06-04 06:37] LABS: Arterial Blood Gas PEEP 5 cmH2O; Arterial Blood Gas Tidal Volume 320 ml; Arterial Blood Gas Vent Mode CMV; Arterial Blood Gas Ventilator rate 16 /MIN
[2021-06-04] MEDS: polyethylene glycoL 3350 17 GM POWD.PACK PO (08:33)
[2021-06-04] MEDS: MINERAL OIL/WHITE PETROLATUM OINTMENT 1 APPLIC EACH EYE ×2 (08:33→21:22)
[2021-06-04] MEDS: levETIRAcetam 500MG/NACL 100ML 500 MG/100 ML BAG 400 MG IVPB ×2 (08:33→21:22)
[2021-06-04] MEDS: PANTOPRAZOLE SODIUM IV 40 MG VIAL IV PUSH ×2 (08:33→21:22)
[2021-06-04] MEDS: ENOXAPARIN 30 MG/0.3 ML SYRINGE SUB-Q ×2 (08:33→12:02)
[2021-06-04 09:31] LABS: Alveolar/Arterial O2 Gradient 149.2 mmHg; Fractional Inspired Oxygen 35 %; HCO3 ABG 29.4 mEq/l (22.0-26.0); Oxygen Content ABG 13.1 %vol (16.0-22.0); PCO2 ABG 47.4 mmHg (35.0-45.0); PO2 FiO2 Ratio Arterial Blood 1.29 %; Total Hemoglobin 11.8 g/dL (12.0-18.0)
[2021-06-04 09:32] LABS: Oxygen Saturation ABG 81.3 % (95.0-100.0); PO2 ABG 45.3 mmHg (80.0-100.0)
[2021-06-04 09:33] LABS: Arterial Blood Gas PEEP 5 cmH2O; Arterial Blood Gas Pressure Support 5 cmH2O; Arterial Blood Gas Vent Mode SPONTANEOUS; Modified Allen's Test Pass; Oxyhemoglobin 78.7 % THb (90.0-100.0); Site Drawn RIGHT RADIAL
[2021-06-04 09:34] LABS: Device VENTILATOR
--- NOTE | 2021-06-04 09:48 | WPDINTPN ---
Progress Note: A&P Assessment and Plan (1) Acute respiratory failure with hypoxia: Code(s): J96.01 - Acute respiratory failure with hypoxia Status: Acute Assessment and Plan: Patient intubated now for airway protection and hypoxia Chest x-ray and shows bilateral infiltrates likely pulmonary edema. he received hemodialysis yesterday and 2 L fluid was removed / ABG reviewed Vent settings reviewed. weaning trial was performed this morning but patient failed due to increased work of breathing with use of some abdominal and accessory muscle, elevated respiratory rate, heart rate and blood pressure (2) Multilobar lung infiltrate: Code(s): R91.8 - Other nonspecific abnormal finding of lung field Status: Acute Assessment and Plan: Suspect aspiration Patient has completed a course of antibiotics earlier this hospitalization continue Zosyn and repeat blood and sputum culture her pending (3) Pneumonia due to COVID-19 virus: Code(s): U07.1 - COVID-19; J12.82 - Pneumonia due to coronavirus disease 2018 Status: Acute Assessment and Plan: Patient was tested positive for COVID-19 He had finished a [address] course of dexamethasone CT findings did not suggest COVID pneumonia but more likely bacterial pneumonia No further treatment for COVID at this time (4) GI bleeding: Code(s): K92.2 - Gastrointestinal hemorrhage, unspecified Status: Acute Assessment and Plan: I suspect patient has GI bleed which has led to drop in his hemoglobin. Hemoglobin on 05/28 was 8.9 and 3.7 this morning. His BUN was elevated at 147 and he was on anticoagulation 2/4 EGD was performed and showed large Zenker's diverticulam, small hiatal hernia, gastritis with erythema and edematous changes, no ulcer seen continue to hold Eliquis for now. patient was started on prophylactic dose to Lovenox. hemoglobin has been stable and I will advance him to full dose today and monitor He has been transfused 4 units of PRBC and his hemoglobin has improved and is remained stable NPO for now and we have not been able to place an NG or OG multiple attempts. even GI was unable to place a gastric tube with EGD yesterday. 2/4 Fluoroscopic guided Dobbhoff was placed with difficulty 2/5 Ppi IV q.12 hours continue hemoglobin monitoring (5) Anemia: Code(s): D64.9 - Anemia, unspecified Status: Chronic Assessment and Plan: Likely secondary to GI bleed as above Hematology was consulted by Dr. Tejada. Discussed with Hematology with no further recommendations except continue Epogen Eliquis has been held. 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 these abnormalities are suggestive of underlying organic or metabolic encephalopathy or postictal state .clinical correlation recommended neurology consulted and is following (7) End stage renal disease: Code(s): N18.6 - End stage renal disease Status: Chronic Assessment and Plan: Nephrology is already following and hemodialysis per schedule (8) Fecal impaction: Code(s): K56.41 - Fecal impaction Status: Acute Assessment and Plan: 2/ CT abdomen pelvis showed - Large amount of stool throughout the colon was 7 cm ball of stool at rectum consistent with constipation and fecal impaction. Multiple gas and fluid-filled l
--- NOTE | 2021-06-04 11:41 | PCFNICU ---
ICU Rounding Note: Pt current nutrition is Nepro at 20 ml/hr over 22 hours. Nutrition recommendation: goal 40 ml/hr over 22 hours. Last recorded weight is 57.3 kg-stable Bowel Motility:+Bm reported 2/ Labs Reviewed:Glu 126, BUN 33, Alb 3.0,Hct 29.1,Hgb 9.6,Cr 4.8 Meds Noted: Zosyn, Miralax, Keppra, Protonix, Propofol 20 vrwm=866 kcals. Skin: WNL Additional Notes: Patient remains on mechanical vent and started on tube feedings of Nepro currently oat 20 ml/hr over 22 hours. Goal rate recommended at 40 ml/hr which will provide 1584 kcals/71 gms protein/640 ml water. Free water flush 30 ml q 4 hours. Propofol at 20 mics providing 166 kcals at this time. Patient failed breathing trial today. Dialysis /. Monitoring: Following daily in ICU rounds, reassessing every Friday and Friday.
[2021-06-04] MEDS: dilTIAZem HCL 30 MG TABLET PO ×2 (12:01→17:18)
[2021-06-04] MEDS: PROPOFOL IV EMULSION 100 ML 6.86 MG IV CONT ×2 (12:02→22:53)
[2021-06-04 12:09] LABS: Glucose Point of Care 131 mg/dl (65-105)
--- NOTE | 2021-06-04 12:45 | PDONCCN ---
HPI - Date of Consult Date/Time: 06/04/21 12:45 Requesting Physician: Lew Estrada MD Primary Care Provider: Naveen Clark, DO - Consult Narrative Reason for consult: Profound anemia Narrative: Jules Mitchell is a 75 year old male with history of end-stage renal disease on hemodialysis along with history of hypertension and dementia was initially hospitalized on May 18 with increasing shortness of breath. He was tested positive for COVID-[address] showed bilateral airspace disease compatible with pneumonia. CT abdomen and pelvis done due to possible bleeding showed multiple gas and fluid-filled loops of small bowel fever I ileus or obstruction. Hemoglobin was 10.3 on May 18 dropped to 3.7 on May 31. EGD was performed on June 01 showed hiatal hernia, gastritis and Zenker's diverticulum. He received 4 units of packed red blood cell on May 31 with improvement in hemoglobin now to 9.6. Patient is intubated and sedated. Review of Systems - Review of Systems All systems reviewed & are unremarkable except as noted in [facility] and [facility] Medical History: Medical History (Last Reviewed 06/01/21 @ 12:10 by Homer Gomez MD) Chronic renal failure - Social History Social History: Social History (Last Reviewed 06/01/21 @ 12:10 by Homer Gomez MD) Alcohol Use: Alcohol intake: never Substance Use: Substance use: never Substance use type: does not use Others: Spiritual care concerns: No Smoking Status: Smoking status: Never smoker Second hand tobacco smoke exposure: No Meds Home Medications Medication Instructions Recorded Confirmed Type Eliquis 2.5 mg PO BID 05/18/21 05/19/21 History allopurinol 100 mg PO HS 05/18/21 05/19/21 History atorvastatin 20 mg PO HS 05/18/21 05/19/21 History furosemide 80 mg PO BID 05/18/21 05/19/21 History hydrocodone-acetaminophen 1 tablet PO Q6H PRN 05/18/21 05/19/21 History ropinirole 0.5 mg PO HS 05/18/21 05/19/21 History sevelamer carbonate 800 mg PO TID 05/18/21 05/19/21 History tamsulosin 0.4 mg PO HS 05/18/21 05/19/21 History diltiazem HCl [Cardizem CD] 120 mg PO DAILY 05/19/21 05/19/21 History albuterol sulfate [Proventil HFA] 2 puff INHALATION Q6HRT #8 g 05/30/21 Rx lisinopril 10 mg PO DAILY #30 tablet 05/30/21 Rx Allergies Allergy/AdvReac Type Severity Reaction Status Date / Time No Known Allergies Allergy Verified 05/18/21 21:05 Results - Labs CBC & Chem 7: 06/04/21 04:21 06/04/21 04:21 Labs: Short CBC 06/04/21 Range/Units 04:21 WBC 6.9 (4.5-10.0) K/mm3 Hgb 9.6 L (14.0-18.0) g/dL Hct 29.1 L (42.0-52.0) % Plt Count 101 L (150-375) k/mm3 BMP 06/04/21 04:21 Sodium 136 L Potassium 3.8 Chloride 101 Carbon Dioxide 29 BUN 33 H D Creatinine 4.80 H Glucose 126 H Calcium 8.1 L Liver Function 06/04/21 Range/Units 04:21 Total Bilirubin 0.4 (0.2-1.3) mg/dL AST 19 (17-59) U/L ALT 15 (4-50) U/L Alkaline Phosphatase 74 (38-126) U/L Albumin 3.0 L (3.5-5.1) g/dL Assessment and Plan - Additional Plan Profound anemia. Patient is the 75-year-old male with history of end-stage renal disease and on hemodialysis. He was recently tested positive for COVID pneumonia. He is currently intubated and sedated. He has hemoglobin was at his baseline on admission with dropped suddenly to 3.7. There was concern for GI bleed. EGD was performed on June 01 that showed hiatal hernia, gastritis and Zenker's diverticulum. After receiving 4 units of packed red blood cell hemoglobin has improved to his baseline of 9.6. Iron studies noted that showed elevated iron saturation and ferritin along with normal B12 level of 755. LDH was elevated at 727. Total bilirubin was normal. Haptoglobin was also normal at 104. These findings are against hemolytic anemia. GI bleed is a possibility as patient was on blood thinner. EGD findi
--- NOTE | 2021-06-04 14:13 | P.PNNP_ITS ---
Progress Note: A&P Assessment and Plan (1) End stage renal disease: Code(s): N18.6 - End stage renal disease Status: Chronic Assessment and Plan: * outpatient schedule of HD every Friday (prior to COVID positivity) * outpatient dialysis unit = [facility] * primary wildlife biology internship = Dr. Blackman * due for dialysis tomorrow * We are not using heparin on HD. * getting low dose anticoagulants for paroxysmal afib. (2) Acute respiratory failure with hypoxia: Code(s): J96.01 - Acute respiratory failure with hypoxia Status: Acute Assessment and Plan: * due to COVID-19, bacterial pneumonia, and possibly aspiration * on ventilator support * on antibiotic therapy * wean as tolerated. he did not do well today (3) Pneumonia due to COVID-19 virus: Code(s): U07.1 - COVID-19; J12.82 - Pneumonia due to coronavirus disease 2019 Status: Acute Assessment and Plan: * noted positive testing at [facility] * completed course of steroids * respiratory isolation timed out. (4) Hypotension: Code(s): I95.9 - Hypotension, unspecified Status: Acute Assessment and Plan: * BP doing better OFF vasopressor support * follow trend of hemodynamics (5) Anemia: Code(s): D64.9 - Anemia, unspecified Status: Chronic Assessment and Plan: * partly related to ESRD but suspect acute worsening due to GI bleed * s/p EGD (06/01/21) with large Zenker's diverticulum, small hiatal hernia, gastritis but no ulcer seen * s/p PRBC transfusiuon (at least 4 units to date) * hb 11.4 after transfused, now down to 9.6 which is about the same as from 06/02 * Epogen with HD (6) Fecal impaction: Code(s): K56.41 - Fecal impaction Status: Acute Assessment and Plan: * resolving * s/p manunal disimpaction * on bowel regimen Will continue to follow. Subjective Date/time seen: 06/04/21 14:13 Interval history: The patient is still in the ICU and intubated. He is following some instructions. Weaning trial failed this morning. Exam Narrative: General: ill appearing AA male lying in the bed intubated Heart: Regular rate and rhythm. No rub or gallop. Lungs: some crackles on auscultation bilaterally Abdomen: soft, nontender, nondistended, positive bowel sounds Extremities: no edema Skin: No rash Objective Data Vital Signs Vital Signs: Vital Signs - 24 hr 06/03/21 14:15 06/03/21 14:18 06/03/21 14:30 Temperature Pulse Rate 98 96 98 Respiratory Rate Blood Pressure 110/63 116/50 L Pulse Oximetry 98 06/03/21 14:45 06/03/21 15:00 06/03/21 15:15 Temperature Pulse Rate 103 H 104 H 106 H Respiratory Rate Blood Pressure 107/52 L 101/52 L 104/71 Pulse Oximetry 06/03/21 15:25 06/03/21 16:00 06/03/21 16:55 Temperature 36.5 C Pulse Rate 105 H 105 H 96 Respiratory Rate 17 16 Blood Pressure 128/67 141/66 H Pulse Oximetry 94 97 98 06/03/21 18:00 06/03/21 20:00 06/03/21 20:37 Temperature 37.1 C Pulse Rate 99 96 88 Respiratory Rate 14 16 16 Blood Pressure 112/53 L 123/54 L Pulse Oximetry 98 98 06/03/21 21:21 06/03/21 22:00
--- NOTE | 2021-06-04 14:13 | PM.PNNEP ---
Progress Note: A&P Assessment and Plan (1) End stage renal disease: Code(s): N18.6 - End stage renal disease Status: Chronic Assessment and Plan: outpatient schedule of HD every Friday (prior to COVID positivity) outpatient dialysis unit = [facility] primary immigration officer = Dr. Blackman due for dialysis tomorrow We are not using heparin on HD. getting low dose anticoagulants for paroxysmal afib. (2) Acute respiratory failure with hypoxia: Code(s): J96.01 - Acute respiratory failure with hypoxia Status: Acute Assessment and Plan: due to COVID-19, bacterial pneumonia, and possibly aspiration on ventilator support on antibiotic therapy wean as tolerated. he did not do well today (3) Pneumonia due to COVID-19 virus: Code(s): U07.1 - COVID-19; J12.82 - Pneumonia due to coronavirus disease 2019 Status: Acute Assessment and Plan: noted positive testing at [place] completed course of steroids respiratory isolation timed out. (4) Hypotension: Code(s): I95.9 - Hypotension, unspecified Status: Acute Assessment and Plan: BP doing better OFF vasopressor support follow trend of hemodynamics (5) Anemia: Code(s): D64.9 - Anemia, unspecified Status: Chronic Assessment and Plan: partly related to ESRD but suspect acute worsening due to GI bleed s/p EGD (06/01/21) with large Zenker's diverticulum, small hiatal hernia, gastritis but no ulcer seen s/p PRBC transfusiuon (at least 4 units to date) hb 11.4 after transfused, now down to 9.6 which is about the same as from 06/02 Epogen with HD (6) Fecal impaction: Code(s): K56.41 - Fecal impaction Status: Acute Assessment and Plan: resolving s/p manunal disimpaction on bowel regimen Will continue to follow. Subjective Date/time seen: 06/04/21 14:13 Interval history: The patient is still in the ICU and intubated. He is following some instructions. Weaning trial failed this morning. Exam Narrative: General: ill appearing AA male lying in the bed intubated Heart: Regular rate and rhythm. No rub or gallop. Lungs: some crackles on auscultation bilaterally Abdomen: soft, nontender, nondistended, positive bowel sounds Extremities: no edema Skin: No rash Objective Data Vital Signs Vital Signs: Vital Signs - 24 hr 06/03/21 14:15 06/03/21 14:18 06/03/21 14:30 Temperature Pulse Rate 98 96 98 Respiratory Rate Blood Pressure 110/63 116/50 L Pulse Oximetry 98 06/03/21 14:45 06/03/21 15:00 06/03/21 15:15 Temperature Pulse Rate 103 H 104 H 106 H Respiratory Rate Blood Pressure 107/52 L 101/52 L 104/71 Pulse Oximetry 06/03/21 15:25 06/03/21 16:00 06/03/21 16:55 Temperature 36.5 C Pulse Rate 105 H 105 H 96 Respiratory Rate 17 16 Blood Pressure 128/67 141/66 H Pulse Oximetry 94 97 98 06/03/21 18:00 06/03/21 20:00 06/03/21 20:37 Temperature 37.1 C Pulse Rate 99 96 88 Respiratory Rate 14 16 16 Blood Pressure 112/53 L 123/54 L Pulse Oximetry 98 98 06/03/21 21:21 06/03/21 22:00 06/03/21 22:59 Temperature Pulse Rate 93 89 87 Respiratory Rate 16 Blood Pressure 131/55 L Pulse Oximetry 100 98 100 06/04/21 00:00 06/04/21 02:00 06/04/21 02:40 Temperature 37.0 C Pulse Rate 90 84 85 Respiratory Rate 16 16 Blood Pressure 117/69 143/57 H Pulse Oximetry 100 100 100 06/04/21 03:49 06/04/21 03:51 06/04/21 04:00 Temperature 37.1 C Pulse Rate 87 87 91 Respiratory Rate 16 16 Blood Pressure 127/58 L Pulse Oximetry 100 100 06/04/21 05:29 06/04/21 05:55 06/04/21 06:00 Temperature Pulse Rate 87 87 88 Respiratory Rate 16 Blood Pressure 127/46 L Pulse Oximetry 100 100 06/04/21 08:00 06/04/21 08:27 06/04/21 10:00 Temperature 36.1 C L Pulse Rate 86 106 H 113 H Respiratory Rate 17 30 H Blood Pressure 130/57 L 165/95 H
--- NOTE | 2021-06-04 14:16 | P.PNIM_ITS ---
Progress Note: A&P Assessment and Plan (1) Acute respiratory failure with hypoxia: Code(s): J96.01 - Acute respiratory failure with hypoxia Status: Acute Assessment and Plan: Patient intubated now for airway protection and hypoxia Chest x-ray and shows bilateral infiltrates likely pulmonary edema. he received hemodialysis yesterday and 2 L fluid was removed / ABG reviewed Vent settings reviewed. weaning trial was performed this morning but patient failed due to increased work of breathing with use of some abdominal and accessory muscle, elevated respiratory rate, heart rate and blood pressure (2) Multilobar lung infiltrate: Code(s): R91.8 - Other nonspecific abnormal finding of lung field Status: Acute Assessment and Plan: Suspect aspiration Patient has completed a course of antibiotics earlier this hospitalization continue Zosyn and repeat blood and sputum culture her pending (3) Pneumonia due to COVID-19 virus: Code(s): U07.1 - COVID-19; J12.82 - Pneumonia due to coronavirus disease 2018 Status: Acute Assessment and Plan: Patient was tested positive for COVID-19 He had finished a 10 [address] course of dexamethasone CT findings did not suggest COVID pneumonia but more likely bacterial pneumonia No further treatment for COVID at this time (4) GI bleeding: Code(s): K92.2 - Gastrointestinal hemorrhage, unspecified Status: Acute Assessment and Plan: I suspect patient has GI bleed which has led to drop in his hemoglobin. Hemoglobin on 05/28 was 8.9 and 3.7 this morning. His BUN was elevated at 147 and he was on anticoagulation 2/4 EGD was performed and showed large Zenker's diverticulam, small hiatal hernia, gastritis with erythema and edematous changes, no ulcer seen continue to hold Eliquis for now. patient was started on prophylactic dose to Lovenox. hemoglobin has been stable and I will advance him to full dose today and monitor He has been transfused 4 units of PRBC and his hemoglobin has improved and is remained stable NPO for now and we have not been able to place an NG or OG multiple attempts. even GI was unable to place a gastric tube with EGD yesterday. 2/4 Fluoroscopic guided Dobbhoff was placed with difficulty 2/5 Ppi IV q.12 hours continue hemoglobin monitoring (5) Anemia: Code(s): D64.9 - Anemia, unspecified Status: Chronic Assessment and Plan: Likely secondary to GI bleed as above Hematology was consulted by Dr. Tejada. Discussed with Hematology with no further recommendations except continue Epogen Eliquis has been held. 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 these abnormalities are suggestive of underlying organic or metabolic encephalopathy or postictal state .clinical correlation recommended neurology consulted and is following (7) End stage renal disease: Code(s): N18.6 - End stage renal disease Status: Chronic Assessment and Plan: Nephrology is already following and he
[2021-06-04 17:45] LABS: Glucose Point of Care 186 mg/dl (65-105)
[2021-06-04] MEDS: allopurinoL 100 MG TABLET PO (21:22)
[2021-06-04] MEDS: TAMSULOSIN HCL 0.4 MG CAPSULE PO (21:22)
[2021-06-04] MEDS: ATORVASTATIN 20 MG TABLET PO (21:22)
[2021-06-05] VITALS (41 sets, daily range): BP systolic 84–169; BP diastolic 45–98; PULSE 66–110; RESP 12–24; TEMP 36.6–37.3; O2SAT 91–100
[2021-06-05 00:46] LABS: Glucose Point of Care 119 mg/dl (65-105)
[2021-06-05] MEDS: dilTIAZem HCL 30 MG TABLET PO (02:06)
[2021-06-05 05:03] LABS: Hematocrit 28.5 % (42.0-52.0); Hemoglobin 9.2 g/dL (14.0-18.0); Mean Corpuscular HGB Conc 32.3 g/dl (32-36); Mean Corpuscular Hemoglobin 32.4 pg (26-34); Mean Corpuscular Volume 100.4 fl (80-100); Mean Platelet Volume 9.6 fl (7.4-10.4); Platelet Count Result 101 k/mm3 (150-375); Red Blood Count 2.84 M/mm3 (4.6-6.20); Red Cell Distribution Width 18.5 % (11.5-14.5); White Blood Count 5.7 K/mm3 (4.5-10.0)
[2021-06-05 05:05] LABS: Alveolar/Arterial O2 Gradient 123.4 mmHg; Base Excess ABG 1.3 mEq/l (+/-2.0); Carboxyhemoglobin 0.2 % THb (0-2.0); Fractional Inspired Oxygen 35 %; HCO3 ABG 25.8 mEq/l (22.0-26.0); Methemoglobin ABG 0.3 %THb (0-1.5); Oxyhemoglobin 94.3 % THb (90.0-100.0); PCO2 ABG 40.1 mmHg (35.0-45.0); PO2 ABG 79.5 mmHg (80.0-100.0); PO2 FiO2 Ratio Arterial Blood 2.27 %; Reduced Hemoglobin 5.2 %THb (0-5.0); Total Hemoglobin 10.5 g/dL (12.0-18.0); pH ABG 7.426 (7.350-7.450)
[2021-06-05 05:07] LABS: Arterial Blood Gas Ventilator rate 16 /MIN; Device VENTILATOR; Modified Allen's Test Pass; Site Drawn LEFT RADIAL
[2021-06-05 05:08] LABS: Arterial Blood Gas PEEP 5 cmH2O; Arterial Blood Gas Tidal Volume 320 ml; Arterial Blood Gas Vent Mode CMV
[2021-06-05 05:24] LABS: Alanine Aminotransferase 15 U/L (4-50); Albumin Level 3.1 g/dL (3.5-5.1); Alkaline Phosphatase 74 U/L (38-126); Anion Gap 7 mmol/L (8-16); Aspartate Amino Transferase 27 U/L (17-59); Bilirubin,Total 0.4 mg/dL (0.2-1.3); Blood Urea Nitrogen 47 mg/dL (9-20); Calcium 7.8 mg/dL (8.4-10.2); Carbon Dioxide 28 mmol/L (22-30); Chloride 101 mmol/L (98-107); Estimated CRCL calculation 7 ml/min; Estimated Glomerular Filt Rate 10; Glucose 105 mg/dL (65-110); Magnesium 2.2 mg/dL (1.6-2.3); Phosphorus 3.8 mg/dL (2.5-4.5); Potassium 4.1 mmol/L (3.4-5.0); Sodium 136 mmol/L (137-145)
[2021-06-05] MEDS: CENTRAL LINE FLUSH 10 ML IV PUSH ×3 (06:12→20:50)
--- NOTE | 2021-06-05 06:24 | P.PNNP_ITS ---
Progress Note: A&P Assessment and Plan (1) End stage renal disease: Code(s): N18.6 - End stage renal disease Status: Chronic Assessment and Plan: * outpatient schedule of HD every Friday (prior to COVID positivity) * outpatient dialysis unit = [facility] * primary electrolysist = Dr. Blackman * due for dialysis today. Orders written. * We are not using heparin on HD. (2) Acute respiratory failure with hypoxia: Code(s): J96.01 - Acute respiratory failure with hypoxia Status: Acute Assessment and Plan: * due to COVID-19, bacterial pneumonia, and possibly aspiration status post respiratory arrest while severely anemic. * on ventilator support * on antibiotic therapy * Getting pulmonary toilet. * FiO2 35%. Peak airway pressure 17. Minute volume only 5. * Will try to keep off as much fluid as possible to optimize the situation but it sounds more like weakness and secretions are his barrier to extubation. (3) Pneumonia due to COVID-19 virus: Code(s): U07.1 - COVID-19; J12.82 - Pneumonia due to coronavirus disease 2018 Status: Acute Assessment and Plan: * noted positive testing at [facility] * completed course of steroids * respiratory isolation timed out. (4) Hypotension: Code(s): I95.9 - Hypotension, unspecified Status: Acute Assessment and Plan: * Due to anemia * Blood pressure up and down, range from the 90s to 150s. * On no vasopressors. (5) Anemia: Code(s): D64.9 - Anemia, unspecified Status: Chronic Assessment and Plan: * partly related to ESRD but suspect acute worsening due to GI bleed * s/p EGD (06/01/21) with large Zenker's diverticulum, small hiatal hernia, veronica ritis but no ulcer seen * s/p PRBC transfusiuon * hb 11.4 after transfused, now down to 9.2. He seems to be slowly drifting down words. * EPO increased to 20,000. * Will check irons and B12 and folate. (6) Fecal impaction: Code(s): K56.41 - Fecal impaction Status: Acute Assessment and Plan: * resolving * s/p manunal disimpaction * on bowel regimen Subjective Date/time seen: 06/05/21 06:24 Interval history: The patient is still in the ICU and intubated. Sedated with propofol. Comfortable in bed. He has increased secretions overnight according to the nurse. Patient is sedated and cannot give a history or review of systems Exam Narrative: General: ill appearing AA male lying in the bed intubated Heart: Regular rate and rhythm. No rub or gallop. Lungs: Coarse upper airway noise mostly, symmetric. Abdomen: soft, nontender, nondistended, positive bowel sounds Extremities: no edema or cyanosis Skin: No rash Objective Data Vital Signs Vital Signs: Vital Signs - 24 hr 06/04/21 08:00 06/04/21 08:27 06/04/21 10:00 Temperature 36.1 C L Pulse Rate 86 106 H 113 H Respiratory Rate 17 30 H Blood Pressure 130/57 L 165/95 H Pulse Oximetry 99 99 93 06/04/21 10:54 06/04/21 12:00 06/04/21 12:02 Temperature 36.1 C L Pulse Rate 92 86 96 Respiratory Rate 16 19 Blood Pressure 130/57 L Pulse Oximetry 93 99 06/04/21 14:00 06/04/21 14:36 06/04/21 16:00 Temperature 37.7 C H Pulse Rate 113 H 105 H 112 H Respiratory Rate 30 H
--- NOTE | 2021-06-05 06:24 | PM.PNNEP ---
Progress Note: A&P Assessment and Plan (1) End stage renal disease: Code(s): N18.6 - End stage renal disease Status: Chronic Assessment and Plan: outpatient schedule of HD every Friday (prior to COVID positivity) outpatient dialysis unit = [facility] primary manager neonatal = Dr. Yehuda ball for dialysis today. Orders written. We are not using heparin on HD. (2) Acute respiratory failure with hypoxia: Code(s): J96.01 - Acute respiratory failure with hypoxia Status: Acute Assessment and Plan: due to COVID-19, bacterial pneumonia, and possibly aspiration status post respiratory arrest while severely anemic. on ventilator support on antibiotic therapy Getting pulmonary toilet. FiO2 35%. Peak airway pressure 17. Minute volume only 5. Will try to keep off as much fluid as possible to optimize the situation but it sounds more like weakness and secretions are his barrier to extubation. (3) Pneumonia due to COVID-19 virus: Code(s): U07.1 - COVID-19; J12.82 - Pneumonia due to coronavirus disease 2018 Status: Acute Assessment and Plan: noted positive testing at [place] [facility] completed course of steroids respiratory isolation timed out. (4) Hypotension: Code(s): I95.9 - Hypotension, unspecified Status: Acute Assessment and Plan: Due to anemia Blood pressure up and down, range from the 90s to 150s. On no vasopressors. (5) Anemia: Code(s): D64.9 - Anemia, unspecified Status: Chronic Assessment and Plan: partly related to ESRD but suspect acute worsening due to GI bleed s/p EGD (06/01/21) with large Zenker's diverticulum, small hiatal hernia, gastritis but no ulcer seen s/p PRBC transfusiuon hb 11.4 after transfused, now down to 9.2. He seems to be slowly drifting down words. EPO increased to 20,000. Will check irons and B12 and folate. (6) Fecal impaction: Code(s): K56.41 - Fecal impaction Status: Acute Assessment and Plan: resolving s/p manunal disimpaction on bowel regimen Subjective Date/time seen: 06/05/21 06:24 Interval history: The patient is still in the ICU and intubated. Sedated with propofol. Comfortable in bed. He has increased secretions overnight according to the nurse. Patient is sedated and cannot give a history or review of systems Exam Narrative: General: ill appearing AA male lying in the bed intubated Heart: Regular rate and rhythm. No rub or gallop. Lungs: Coarse upper airway noise mostly, symmetric. Abdomen: soft, nontender, nondistended, positive bowel sounds Extremities: no edema or cyanosis Skin: No rash Objective Data Vital Signs Vital Signs: Vital Signs - 24 hr 06/04/21 08:00 06/04/21 08:27 06/04/21 10:00 Temperature 36.1 C L Pulse Rate 86 106 H 113 H Respiratory Rate 17 30 H Blood Pressure 130/57 L 165/95 H Pulse Oximetry 99 99 93 06/04/21 10:54 06/04/21 12:00 06/04/21 12:02 Temperature 36.1 C L Pulse Rate 92 86 96 Respiratory Rate 16 19 Blood Pressure 130/57 L Pulse Oximetry 93 99 06/04/21 14:00 06/04/21 14:36 06/04/21 16:00 Temperature 37.7 C H Pulse Rate 113 H 105 H 112 H Respiratory Rate 30 H 24 H Blood Pressure 165/95 H 150/74 H Pulse Oximetry 93 97 96 06/04/21 17:49 06/04/21 18:00 06/04/21 20:00 Temperature 36.6 C Pulse Rate 111 H 80 95 Respiratory Rate 18 24 H Blood Pressure 126/79 116/64 Pulse Oximetry 96 100 98 06/04/21 20:13 06/04/21 22:00 06/04/21 23:30 Temperature Pulse Rate 95 93 88 Respiratory Rate 20 Blood Pressure 122/61 Pulse Oximetry 100 100 99 06/04/21 23:50 06/04/21 23:53 06/05/21 00:00 Temperature 36.6 C Pulse Rate 89 89 90 Respiratory Rate 20 24 H Blood Pressure 118/64 Pulse Oximetry 99 98 06/05/21 01:42 06/05/21 02:00 06/05/21 03:52 Temperature Pulse Rate 81 82 88 Respiratory Rate 20 Blood P
--- NOTE | 2021-06-05 09:50 | WPDINTPN ---
Progress Note: A&P Assessment and Plan (1) Acute respiratory failure with hypoxia: Code(s): J96.01 - Acute respiratory failure with hypoxia Status: Acute Assessment and Plan: Patient intubated now for airway protection and hypoxia Chest x-ray this morning shows Decreasing bilateral lung disease consistent with improving pneumonia. -use reviewed, patient on 5 of 35% FiO2 -patient getting dialyzed at this time, will try weaning trial after dialysis -continue bronchodilators -continue Zosyn (2) Multilobar lung infiltrate: Code(s): R91.8 - Other nonspecific abnormal finding of lung field Status: Acute Assessment and Plan: Suspect aspiration Patient has completed a course of antibiotics earlier this hospitalization continue Zosyn -06/02/2021 sputum cultures are negative, 06/01/2021 urine cultures are negative, 05/31/2021 blood cultures x2 negative. (3) Pneumonia due to COVID-19 virus: Code(s): U07.1 - COVID-19; J12.82 - Pneumonia due to coronavirus disease 2018 Status: Acute Assessment and Plan: Patient was tested positive for COVID-19 He had finished a [address] course of dexamethasone CT findings did not suggest COVID pneumonia but more likely bacterial pneumonia No further treatment for COVID at this time (4) GI bleeding: Code(s): K92.2 - Gastrointestinal hemorrhage, unspecified Status: Acute Assessment and Plan: I suspect patient has GI bleed which has led to drop in his hemoglobin. Hemoglobin on 05/28 was 8.9 and 3.7 this morning. His BUN was elevated at 147 and he was on anticoagulation 2/ EGD was performed and showed large Zenker's diverticulam, small hiatal hernia, gastritis with erythema and edematous changes, no ulcer seen continue to hold Eliquis for now. patient was started on prophylactic dose to Lovenox. hemoglobin has been stable and I will advance him to full dose today and monitor He has been transfused 4 units of PRBC and his hemoglobin has improved and is remained stable NPO for now and we have not been able to place an NG or OG multiple attempts. even GI was unable to place a gastric tube with EGD yesterday. 2/4 Fluoroscopic guided Dobbhoff was placed with difficulty 2/5 Ppi IV q.12 hours continue hemoglobin monitoring (5) Anemia: Code(s): D64.9 - Anemia, unspecified Status: Chronic Assessment and Plan: Likely secondary to GI bleed as above Hematology was consulted by Dr. Tejada. Discussed with Hematology with no further recommendations except continue Epogen Eliquis has been held. 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 these abnormalities are suggestive of underlying organic or metabolic encephalopathy or postictal state .clinical correlation recommended neurology consulted and is following (7) End stage renal disease: Code(s): N18.6 - End stage renal disease Status: Chronic Assessment and Plan: Nephrology is already following and hemodialysis per schedule (8) Fecal impaction: Code(s): K56.41 - Fecal impaction Status: Acute Assessment and Plan: 2/ CT abdomen pelvis showed - Large amount of stool throughout the colon was 7 cm ball of stool at rectum consistent with constipation and fecal impaction. Multiple gas and fluid-filled loops of small bowel which are not frankly dil
[2021-06-05] MEDS: EPOETIN ALFA-EPBX 20,000 UNITS/ML VIAL 20000 UNITS IV PUSH (11:30)
[2021-06-05 11:50] LABS: Glucose Point of Care 88 mg/dl (65-105)
--- NOTE | 2021-06-05 12:10 | PCNFU ---
Nutrition Follow-Up Complete: Inadequate oral intake related to ARF w/hypoxia and COVID as evidenced by reported average intake of 6% Goal: Pt to meet 75% of estimated nutritional needs Patient is progressing towards goal. We will continue current goal. Pt current nutrition is Nepro at 20 ml/hr over 22 hours. Goal rate at 40 ml/hr. Last recorded weight is 57.3 kg-stable Bowel Motility:+BM reported 2/6 Labs Reviewed:Cr 6.5,GFR 10, BUN 47, Na 136, Hct 28.5, Hgb 9.2 Meds Noted:Propofol 20 ggpe=309 kcals,Miralax, Zosyn, Keppra, Protonix, Retacrit Skin: WNL Additional Notes: Patient remains on mechanical vent. Tube feeding stopped-occluded. Plans for KUB. When tube feedings restart recommend Nepro goal rate at 40 ml/hr over 22 hours, providing 1584 kcals/71 gms protein/640 ml water. Propofol is providing an additional 166 kcals. Will continue to monitor Propofol Infusion for any tube feeding rate changes. Free water flush 30 ml q 4 hours. Dialysis today. Agree with diet orders. Will monitor in ICU rounds and reassessing every Friday and Friday.
[2021-06-05] MEDS: ENOXAPARIN 60 MG/0.6 ML SYRINGE SUB-Q (12:55)
[2021-06-05] MEDS: MINERAL OIL/WHITE PETROLATUM OINTMENT 1 APPLIC EACH EYE ×2 (12:55→20:50)
[2021-06-05] MEDS: PANTOPRAZOLE SODIUM IV 40 MG VIAL IV PUSH ×2 (12:55→20:50)
[2021-06-05] MEDS: levETIRAcetam 500MG/NACL 100ML 500 MG/100 ML BAG 400 MG IVPB ×2 (13:12→20:50)
[2021-06-05] MEDS: NOREPINEPHRINE 8 MG/D5W 250 ML 8 MG/250 ML BAG 15 MG IV CONT (16:33)
[2021-06-05 17:38] LABS: Glucose Point of Care 153 mg/dl (65-105)
[2021-06-05 17:51] LABS: Glucose Point of Care 146 mg/dl (65-105)
[2021-06-05 18:49] LABS: Reticulocyte Hemoglobin Conten 37.1 pg (28.2-35.7); Reticulocyte Percent 2.39 % (0.7-4.3); Reticulocytes Absolute 0.07 B/L (32.2-175.7)
[2021-06-05 20:28] LABS: Folic Acid 2.2 ng/mL (2.76->20)
[2021-06-05] MEDS: PROPOFOL IV EMULSION 100 ML 6.86 MG IV CONT (20:51)
[2021-06-05 21:07] LABS: Iron 31 ug/dL (49-181)
[2021-06-05 21:14] LABS: Percent Iron Saturation 26 % (20-50)
[2021-06-05 23:58] LABS: Glucose Point of Care 141 mg/dl (65-105)
[2021-06-06] VITALS (28 sets, daily range): BP systolic 91–130; BP diastolic 45–72; PULSE 68–99; RESP 16–32; TEMP 36.7–37.3; O2SAT 96–100
[2021-06-06 04:38] LABS: Hematocrit 28.9 % (42.0-52.0); Hemoglobin 9.5 g/dL (14.0-18.0); Mean Corpuscular HGB Conc 32.9 g/dl (32-36); Mean Corpuscular Hemoglobin 32.4 pg (26-34); Mean Corpuscular Volume 98.6 fl (80-100); Mean Platelet Volume 9.6 fl (7.4-10.4); Platelet Count Result 137 k/mm3 (150-375); Red Blood Count 2.93 M/mm3 (4.6-6.20); Red Cell Distribution Width 18.3 % (11.5-14.5)
[2021-06-06 04:59] LABS: Albumin Level 3.2 g/dL (3.5-5.1); Anion Gap 4 mmol/L (8-16); Blood Urea Nitrogen 28 mg/dL (9-20); Carbon Dioxide 32 mmol/L (22-30); Chloride 99 mmol/L (98-107); Estimated CRCL calculation 10 ml/min; Estimated Glomerular Filt Rate 15; Glucose 135 mg/dL (65-110); Phosphorus 3.4 mg/dL (2.5-4.5); Potassium 3.9 mmol/L (3.4-5.0); Sodium 135 mmol/L (137-145)
[2021-06-06 05:01] LABS: Alveolar/Arterial O2 Gradient 96.1 mmHg; Arterial Blood Gas PEEP 5 cmH2O; Arterial Blood Gas Vent Mode CMV; Arterial Blood Gas Ventilator rate 16 /MIN; Base Excess ABG 5.4 mEq/l (+/-2.0); Carboxyhemoglobin 0.3 % THb (0-2.0); Device VENTILATOR; Fractional Inspired Oxygen 30 %; Methemoglobin ABG 0.4 %THb (0-1.5); Modified Allen's Test Unable to perform; Oxygen Content ABG 14.2 %vol (16.0-22.0); Oxygen Saturation ABG 95.6 % (95.0-100.0); Oxyhemoglobin 93.8 % THb (90.0-100.0); PCO2 ABG 38.9 mmHg (35.0-45.0); PO2 ABG 72.1 mmHg (80.0-100.0); Reduced Hemoglobin 5.5 %THb (0-5.0); Site Drawn LEFT RADIAL; Total Hemoglobin 10.7 g/dL (12.0-18.0); pH ABG 7.491 (7.350-7.450)
[2021-06-06 05:02] LABS: Arterial Blood Gas Tidal Volume 320 ml
[2021-06-06] MEDS: CENTRAL LINE FLUSH 10 ML IV PUSH ×4 (05:29→23:21)
--- NOTE | 2021-06-06 06:30 | P.PNNP_ITS ---
Progress Note: A&P Assessment and Plan (1) End stage renal disease: Code(s): N18.6 - End stage renal disease Status: Chronic Assessment and Plan: * outpatient schedule of HD every Friday (prior to COVID positivity) * outpatient dialysis unit = [facility] * primary night patrol inspector = Dr. Blackman * He had dialysis yesterday. Will write orders for tomorrow. * Electrolytes look okay * We are not using heparin on HD. (2) Acute respiratory failure with hypoxia: Code(s): J96.01 - Acute respiratory failure with hypoxia Status: Acute Assessment and Plan: * due to COVID-19, bacterial pneumonia, and possibly aspiration status post respiratory arrest while severely anemic. * on ventilator support * on antibiotic therapy * Getting pulmonary toilet. * FiO2 30%. Peak airway pressure 17. Minute volume only 5. * 2.3L removed on dialysis yesterday. He gains about a L per day of meds plus tube feedings. (3) Pneumonia due to COVID-19 virus: Code(s): U07.1 - COVID-19; J12.82 - Pneumonia due to coronavirus disease 2018 Status: Acute Assessment and Plan: * noted positive testing at [place] [facility] * completed course of steroids * respiratory isolation timed out. (4) Hypotension: Code(s): I95.9 - Hypotension, unspecified Status: Acute Assessment and Plan: * Will take off less fluid tomorrow on dialysis. * Perhaps his insensible losses higher than average (5) Anemia: Code(s): D64.9 - Anemia, unspecified Status: Chronic Assessment and Plan: * partly related to ESRD but suspect acute worsening due to GI bleed * s/p EGD (06/01/21) with large Zenker's diverticulum, small hiatal hernia, gastritis but no ulcer seen * s/p PRBC transfusiuon * hb 11.4 after transfused, now down to 9.2. He seems to be slowly drifting down words. * Iron is okay. B12 okay. Retic count is doing pretty well. Folate is low. * EPO increased to 20,000 the other day * Supplement folate. (6) Fecal impaction: Code(s): K56.41 - Fecal impaction Status: Acute Assessment and Plan: * resolving * s/p manunal disimpaction * on bowel regimen Subjective Date/time seen: 06/06/21 06:30 Interval history: Patient is lying in bed comfortably. He is sedated. He had dialysis yesterday and tolerated it fairly well until the and and blood pressure dropped. He is still on pressors: Norepi at 4 Patient is sedated and cannot give a history or review of systems Exam Narrative: General: ill appearing AA male lying in the bed intubated Heart: Regular rate and rhythm. No rub Lungs: Coarse bilaterally Abdomen: soft, nontender, nondistended, positive bowel sounds Extremities: no edema or cyanosis Skin: No rash or subQ nodules Objective Data Vital Signs Vital Signs: Vital Signs - 24 hr 06/05/21 08:00 06/05/21 08:19 06/05/21 08:25 Temperature 37.2 C 36.9 C Pulse Rate 76 82 84 Respiratory Rate 16 16 Blood Pressure 104/50 L 121/60 Pulse Oximetry 100 99 100 06/05/21 08:42 06/05/21 09:00 06/05/21 09:15 Temperature Pulse Rate 84 83 85 Respiratory Rate Blood Pressure 145/96 H 126/55 L 145/64 H Pulse Oximetry 06/05/21 09:30 06/05/21 09:45 06/05/21 10:00 Temperature
--- NOTE | 2021-06-06 06:30 | PM.PNNEP ---
Progress Note: A&P Assessment and Plan (1) End stage renal disease: Code(s): N18.6 - End stage renal disease Status: Chronic Assessment and Plan: outpatient schedule of HD every Friday (prior to COVID positivity) outpatient dialysis unit = [facility] primary size tester = Dr. Blackman He had dialysis yesterday. Will write orders for tomorrow. Electrolytes look okay We are not using heparin on HD. (2) Acute respiratory failure with hypoxia: Code(s): J96.01 - Acute respiratory failure with hypoxia Status: Acute Assessment and Plan: due to COVID-19, bacterial pneumonia, and possibly aspiration status post respiratory arrest while severely anemic. on ventilator support on antibiotic therapy Getting pulmonary toilet. FiO2 30%. Peak airway pressure 17. Minute volume only 5. 2.3L removed on dialysis yesterday. He gains about a L per day of meds plus tube feedings. (3) Pneumonia due to COVID-19 virus: Code(s): U07.1 - COVID-19; J12.82 - Pneumonia due to coronavirus disease 2019 Status: Acute Assessment and Plan: noted positive testing at [facility] completed course of steroids respiratory isolation timed out. (4) Hypotension: Code(s): I95.9 - Hypotension, unspecified Status: Acute Assessment and Plan: Will take off less fluid tomorrow on dialysis. Perhaps his insensible losses higher than average (5) Anemia: Code(s): D64.9 - Anemia, unspecified Status: Chronic Assessment and Plan: partly related to ESRD but suspect acute worsening due to GI bleed s/p EGD (06/01/21) with large Zenker's diverticulum, small hiatal hernia, gastritis but no ulcer seen s/p PRBC transfusiuon hb 11.4 after transfused, now down to 9.2. He seems to be slowly drifting down words. Iron is okay. B12 okay. Retic count is doing pretty well. Folate is low. EPO increased to 20,000 the other day Supplement folate. (6) Fecal impaction: Code(s): K56.41 - Fecal impaction Status: Acute Assessment and Plan: resolving s/p manunal disimpaction on bowel regimen Subjective Date/time seen: 06/06/21 06:30 Interval history: Patient is lying in bed comfortably. He is sedated. He had dialysis yesterday and tolerated it fairly well until the and and blood pressure dropped. He is still on pressors: Norepi at 4 Patient is sedated and cannot give a history or review of systems Exam Narrative: General: ill appearing AA male lying in the bed intubated Heart: Regular rate and rhythm. No rub Lungs: Coarse bilaterally Abdomen: soft, nontender, nondistended, positive bowel sounds Extremities: no edema or cyanosis Skin: No rash or subQ nodules Objective Data Vital Signs Vital Signs: Vital Signs - 24 hr 06/05/21 08:00 06/05/21 08:19 06/05/21 08:25 Temperature 37.2 C 36.9 C Pulse Rate 76 82 84 Respiratory Rate 16 16 Blood Pressure 104/50 L 121/60 Pulse Oximetry 100 99 100 06/05/21 08:42 06/05/21 09:00 06/05/21 09:15 Temperature Pulse Rate 84 83 85 Respiratory Rate Blood Pressure 145/96 H 126/55 L 145/64 H Pulse Oximetry 06/05/21 09:30 06/05/21 09:45 06/05/21 10:00 Temperature Pulse Rate 93 97 87 Respiratory Rate 18 Blood Pressure 132/63 96/48 L 108/59 L Pulse Oximetry 98 06/05/21 10:15 06/05/21 10:30 06/05/21 10:45 Temperature Pulse Rate 87 92 86 Respiratory Rate Blood Pressure 93/47 L 90/45 L 93/54 L Pulse Oximetry 06/05/21 10:47 06/05/21 11:00 06/05/21 11:15 Temperature Pulse Rate 96 91 98 Respiratory Rate Blood Pressure 96/57 L 93/48 L Pulse Oximetry 100 06/05/21 11:30 06/05/21 11:40 06/05/21 11:45 Temperature Pulse Rate 102 H 106 H 103 H Respiratory Rate Blood Pressure 84/50 L 95/63 L 109/92 H Pulse Oximetry 06/05/21 12:00 06/05/21 12:12 06/05/21 12:25 Temperature 37.3 C 36
[2021-06-06] MEDS: PROPOFOL IV EMULSION 100 ML 5.15 MG IV CONT (09:28)
[2021-06-06] MEDS: ENOXAPARIN 60 MG/0.6 ML SYRINGE SUB-Q (09:29)
[2021-06-06] MEDS: MINERAL OIL/WHITE PETROLATUM OINTMENT 1 APPLIC EACH EYE ×2 (09:30→20:15)
[2021-06-06] MEDS: PANTOPRAZOLE SODIUM IV 40 MG VIAL IV PUSH ×2 (09:30→20:15)
[2021-06-06] MEDS: levETIRAcetam 500MG/NACL 100ML 500 MG/100 ML BAG 400 MG IVPB ×2 (09:31→20:18)
--- NOTE | 2021-06-06 11:48 | PCFNICU ---
ICU Rounding Note: Pt current nutrition is NPO. Nutrition recommendation: Nepro at 40 ml/hr over 22 hours. Last recorded weight is 55.7 kg, down from 57.2 kg on admit. Bowel Motility:+BM reported 06/05 Labs Reviewed:Glu 135, Cr 4.7,BUN 28, Na 135, Hct 28.9,Hgb 9.5 Meds Noted:Keppra, Protonix, Retacrit, Zosyn,Propofol 15 [id number] kcals, Levophed, Lovenox. Protonix. Skin: WNL Additional Notes: Patient remains on mechanical vent. Tube feeding continues to be occluded. Plans for GI consult. Dobbhoff vs PEG? Recommend tube feedings of Nepro goal rate at 40 ml/hr over 22 hours. Propofol infusion decreased from 20 mics to 15 mics. Will continue to monitor propofol infusion for any tube feeding rate adjustments. Following daily in ICU rounds and reassessing every Friday/Friday.
--- NOTE | 2021-06-06 11:52 | WPDINTPN ---
Progress Note: A&P Assessment and Plan (1) Acute respiratory failure with hypoxia: Code(s): J96.01 - Acute respiratory failure with hypoxia Status: Acute Assessment and Plan: Patient intubated now for airway protection and hypoxia, could be related to aspiration as he has a large Zenker's diverticulum Chest x-ray this morning shows Decreasing bilateral lung disease consistent with improving pneumonia and pulmonary -currently on peep of 5 and 30% FiO2 -continue bronchodilators -continue Zosyn -patient will be dialyzed again today, per Nephrology (2) Multilobar lung infiltrate: Code(s): R91.8 - Other nonspecific abnormal finding of lung field Status: Acute Assessment and Plan: Suspect aspiration Patient has completed a course of antibiotics earlier this hospitalization continue Zosyn -06/02/2021 sputum cultures are negative, 06/01/2021 urine cultures are negative, 05/31/2021 blood cultures x2 negative. (3) Pneumonia due to COVID-19 virus: Code(s): U07.1 - COVID-19; J12.82 - Pneumonia due to coronavirus disease 2018 Status: Acute Assessment and Plan: Patient was tested positive for COVID-19 He had finished a [address] course of dexamethasone CT findings did not suggest COVID pneumonia but more likely bacterial pneumonia No further treatment for COVID at this time (4) GI bleeding: Code(s): K92.2 - Gastrointestinal hemorrhage, unspecified Status: Acute Assessment and Plan: Hemoglobin dropped as low as 3.7 on 05/31/2021, that is when he was transferred to the ICU 06/01 EGD was performed and showed large Zenker's diverticulam, small hiatal hernia, gastritis with erythema and edematous changes, no ulcer seen continue to hold Eliquis for now. patient was started on prophylactic dose to Lovenox. hemoglobin has been stable and I will advance him to full dose today and monitor He was transfused 4 units of PRBC on 05/31/2021 and his hemoglobin has improved and is remained stable NPO for now and we have not been able to place an NG or OG multiple attempts. even GI was unable to place a gastric tube with EGD yesterday. 06/01 Fluoroscopic guided Dobbhoff was placed with difficulty 06/02 -06/05: Dobbhoff was clogged, patient going today for another Dobbhoff tube placement by Interventional Radiology Continue PPI IV q.12 hours Monitor hemoglobin (5) Anemia: Code(s): D64.9 - Anemia, unspecified Status: Chronic Assessment and Plan: Likely secondary to GI bleed as above Hematology was consulted by Dr. Tejada. Discussed with Hematology with no further recommendations except continue Epogen Eliquis has been held. 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 these abnormalities are suggestive of underlying organic or metabolic encephalopathy or postictal state .clinical correlation recommended neurology consulted and is following (7) End stage renal disease: Code(s): N18.6 - End stage renal disease Status: Chronic Assessment and Plan: Nephrology is already following and hemodialysis per schedule (8) Fecal impaction: Code(s): K56.41 - Fecal impaction Status: Acute Assessment and Plan: / CT abdomen pelvis showed - Large amount of stool throughout the colon was 7 cm ball of stool at rectum consisten
[2021-06-06 12:23] LABS: Glucose Point of Care 92 mg/dl (65-105)
[2021-06-06] MEDS: NOREPINEPHRINE 8 MG/D5W 250 ML 8 MG/250 ML BAG 3.75 MG IV CONT (13:35)
[2021-06-06 16:58] LABS: Glucose Point of Care 120 mg/dl (65-105)
[2021-06-06] MEDS: ATORVASTATIN 20 MG TABLET PO (20:16)
[2021-06-06] MEDS: allopurinoL 100 MG TABLET PO (20:16)
[2021-06-06] MEDS: TAMSULOSIN HCL 0.4 MG CAPSULE PO (20:22)
[2021-06-06] MEDS: PROPOFOL IV EMULSION 100 ML 8.58 MG IV CONT (23:17)
[2021-06-06 23:57] LABS: Glucose Point of Care 110 mg/dl (65-105)
[2021-06-07] VITALS (41 sets, daily range): BP systolic 100–149; BP diastolic 44–68; PULSE 73–99; RESP 12–24; TEMP 36.4–37; O2SAT 94–100
[2021-06-07 05:19] LABS: Alveolar/Arterial O2 Gradient 86.3 mmHg; Base Excess ABG 5.2 mEq/l (+/-2.0); Carboxyhemoglobin 0.5 % THb (0-2.0); Fractional Inspired Oxygen 30 %; HCO3 ABG 28.9 mEq/l (22.0-26.0); Methemoglobin ABG 0.6 %THb (0-1.5); Oxygen Content ABG 22.1 %vol (16.0-22.0); Oxygen Saturation ABG 96.7 % (95.0-100.0); Oxyhemoglobin 94.8 % THb (90.0-100.0); PCO2 ABG 39.4 mmHg (35.0-45.0); PO2 ABG 81.3 mmHg (80.0-100.0); PO2 FiO2 Ratio Arterial Blood 2.71 %; Reduced Hemoglobin 4.1 %THb (0-5.0); Total Hemoglobin 16.6 g/dL (12.0-18.0); pH ABG 7.484 (7.350-7.450)
[2021-06-07 05:22] LABS: Arterial Blood Gas PEEP 5 cmH2O; Arterial Blood Gas Vent Mode CMV; Arterial Blood Gas Ventilator rate 16 /MIN; Device VENTILATOR; Modified Allen's Test Pass; Site Drawn LEFT RADIAL
[2021-06-07 05:23] LABS: Arterial Blood Gas Tidal Volume 320 ml
[2021-06-07 06:18] LABS: Glucose Point of Care 91 mg/dl (65-105)
[2021-06-07] MEDS: CENTRAL LINE FLUSH 10 ML IV PUSH ×4 (06:20→21:39)
[2021-06-07 06:24] LABS: Hematocrit 26.7 % (42.0-52.0); Hemoglobin 8.8 g/dL (14.0-18.0); Mean Corpuscular Hemoglobin 33.7 pg (26-34); Mean Corpuscular Volume 102.3 fl (80-100); Platelet Count Result 128 k/mm3 (150-375); Red Blood Count 2.61 M/mm3 (4.6-6.20); Red Cell Distribution Width 19.1 % (11.5-14.5); White Blood Count 5.5 K/mm3 (4.5-10.0)
[2021-06-07 06:38] LABS: Anion Gap 6 mmol/L (8-16); Blood Urea Nitrogen 48 mg/dL (9-20); Carbon Dioxide 30 mmol/L (22-30); Chloride 99 mmol/L (98-107); Estimated CRCL calculation 6 ml/min; Estimated Glomerular Filt Rate 10; Glucose 102 mg/dL (65-110); Magnesium 2.2 mg/dL (1.6-2.3); Phosphorus 3.7 mg/dL (2.5-4.5); Sodium 135 mmol/L (137-145)
--- NOTE | 2021-06-07 07:55 | P.PNNP_ITS ---
Progress Note: A&P Assessment and Plan (1) End stage renal disease: Code(s): N18.6 - End stage renal disease Status: Chronic Assessment and Plan: * outpatient schedule of HD every Friday (prior to COVID positivity) * outpatient dialysis unit = [facility] * primary disability counselor = Dr. Blackman * He is due for dialysis today. I asked the nurse to set him for 1L for soon if he is doing level upto2L off. We use albumin for blood pressure support. * Electrolytes look okay * We are not using heparin on HD. (2) Acute respiratory failure with hypoxia: Code(s): J96.01 - Acute respiratory failure with hypoxia Status: Acute Assessment and Plan: * due to COVID-19, bacterial pneumonia, and possibly aspiration status post respiratory arrest while severely anemic. * on ventilator support * on antibiotic therapy * Getting pulmonary toilet. * FiO2 30%. * Go for 1-2 L of fluid. (3) Pneumonia due to COVID-19 virus: Code(s): U07.1 - COVID-19; J12.82 - Pneumonia due to coronavirus disease 2018 Status: Acute Assessment and Plan: * noted positive testing at [place] [facility] * completed course of steroids * respiratory isolation timed out. (4) Hypotension: Code(s): I95.9 - Hypotension, unspecified Status: Acute Assessment and Plan: * Will take off less fluid tomorrow on dialysis. * Perhaps his insensible losses higher than average (5) Anemia: Code(s): D64.9 - Anemia, unspecified Status: Chronic Assessment and Plan: * partly related to ESRD but suspect acute worsening due to GI bleed * s/p EGD (06/01/21) with large Zenker's diverticulum, small hiatal hernia, gastritis but no ulcer seen * s/p PRBC transfusiuon * hb 8.8 today * Iron is okay. B12 okay. Retic count is doing pretty well. Folate is low. supplement ordered. * [place] [address] units. * Supplement folate. (6) Fecal impaction: Code(s): K56.41 - Fecal impaction Status: Acute Assessment and Plan: * resolved Subjective Date/time seen: 06/07/21 07:55 Interval history: Patient is lying in bed comfortably. He is sedated. On sedation holidays he wakes up and follows commands. Off pressors. Patient is sedated and cannot give a history or review of systems Exam Narrative: General: ill appearing AA male lying in the bed intubated Heart: Regular rate and rhythm. No rub Lungs: Coarse and symmetric to auscultation. Abdomen: soft, nontender, nondistended, positive bowel sounds Extremities: no edema Skin: No rash or subQ nodules Objective Data Vital Signs Vital Signs: Vital Signs - 24 hr 06/06/21 08:00 06/06/21 08:19 06/06/21 09:28 Temperature 37.3 C Pulse Rate 81 81 81 Respiratory Rate 20 20 Blood Pressure 119/52 L Pulse Oximetry 98 98 06/06/21 10:00 06/06/21 11:54 06/06/21 12:00 Temperature 37.3 C Pulse Rate 79 82 85 Respiratory Rate 32 H 18 Blood Pressure 91/48 L Pulse Oximetry 97 100 98 06/06/21 13:54 06/06/21 13:55 06/06/21 13:58 Temperature Pulse Rate 88 88 82 Respiratory Rate 22 H Blood Pressure 107/49 L Pulse Oximetry 100 100 06/06/21 16:00 06/06/21 16:48 06/06/21
--- NOTE | 2021-06-07 07:55 | PM.PNNEP ---
Progress Note: A&P Assessment and Plan (1) End stage renal disease: Code(s): N18.6 - End stage renal disease Status: Chronic Assessment and Plan: outpatient schedule of HD every Friday (prior to COVID positivity) outpatient dialysis unit = [facility] primary nps = Dr. Blackman He is due for dialysis today. I asked the nurse to set him for 1L for soon if he is doing level upto2L off. We use albumin for blood pressure support. Electrolytes look okay We are not using heparin on HD. (2) Acute respiratory failure with hypoxia: Code(s): J96.01 - Acute respiratory failure with hypoxia Status: Acute Assessment and Plan: due to COVID-19, bacterial pneumonia, and possibly aspiration status post respiratory arrest while severely anemic. on ventilator support on antibiotic therapy Getting pulmonary toilet. FiO2 30%. Go for 1-2 L of fluid. (3) Pneumonia due to COVID-19 virus: Code(s): U07.1 - COVID-19; J12.82 - Pneumonia due to coronavirus disease 2019 Status: Acute Assessment and Plan: noted positive testing at [place] [facility] completed course of steroids respiratory isolation timed out. (4) Hypotension: Code(s): I95.9 - Hypotension, unspecified Status: Acute Assessment and Plan: Will take off less fluid tomorrow on dialysis. Perhaps his insensible losses higher than average (5) Anemia: Code(s): D64.9 - Anemia, unspecified Status: Chronic Assessment and Plan: partly related to ESRD but suspect acute worsening due to GI bleed s/p EGD (06/01/21) with large Zenker's diverticulum, small hiatal hernia, gastritis but no ulcer seen s/p PRBC transfusiuon hb 8.8 today Iron is okay. B12 okay. Retic count is doing pretty well. Folate is low. supplement [place] [address] [place]. Supplement folate. (6) Fecal impaction: Code(s): K56.41 - Fecal impaction Status: Acute Assessment and Plan: resolved Subjective Date/time seen: 06/07/21 07:55 Interval history: Patient is lying in bed comfortably. He is sedated. On sedation holidays he wakes up and follows commands. Off pressors. Patient is sedated and cannot give a history or review of systems Exam Narrative: General: ill appearing AA male lying in the bed intubated Heart: Regular rate and rhythm. No rub Lungs: Coarse and symmetric to auscultation. Abdomen: soft, nontender, nondistended, positive bowel sounds Extremities: no edema Skin: No rash or subQ nodules Objective Data Vital Signs Vital Signs: Vital Signs - 24 hr 06/06/21 08:00 06/06/21 08:19 06/06/21 09:28 Temperature 37.3 C Pulse Rate 81 81 81 Respiratory Rate 20 20 Blood Pressure 119/52 L Pulse Oximetry 98 98 06/06/21 10:00 06/06/21 11:54 06/06/21 12:00 Temperature 37.3 C Pulse Rate 79 82 85 Respiratory Rate 32 H 18 Blood Pressure 91/48 L Pulse Oximetry 97 100 98 06/06/21 13:54 06/06/21 13:55 06/06/21 13:58 Temperature Pulse Rate 88 88 82 Respiratory Rate 22 H Blood Pressure 107/49 L Pulse Oximetry 100 100 06/06/21 16:00 06/06/21 16:48 06/06/21 18:00 Temperature 37.2 C Pulse Rate 87 87 81 Respiratory Rate 18 19 Blood Pressure 111/63 108/60 Pulse Oximetry 100 100 100 06/06/21 19:41 06/06/21 20:00 06/06/21 21:00 Temperature 36.7 C Pulse Rate 85 82 83 Respiratory Rate 20 18 Blood Pressure 130/72 Pulse Oximetry 100 100 06/06/21 22:00 06/06/21 23:17 06/07/21 00:00 Temperature 36.7 C Pulse Rate 72 75 77 Respiratory Rate 18 17 Blood Pressure 125/50 L Pulse Oximetry 98 06/07/21 00:59 06/07/21 02:00 06/07/21 03:19 Temperature Pulse Rate 80 79 80 Respiratory Rate 16 Blood Pressure 122/58 L Pulse Oximetry 97 96 06/07/21 04:00 06/07/21 04:49 06/07/21 06:00 Temperature 36.8 C 36.4 C Pulse Rate 73 82 78 Respirat
[2021-06-07] MEDS: levETIRAcetam 500MG/NACL 100ML 500 MG/100 ML BAG 400 MG IVPB ×2 (09:03→21:32)
[2021-06-07] MEDS: ENOXAPARIN 60 MG/0.6 ML SYRINGE SUB-Q (09:03)
[2021-06-07] MEDS: MINERAL OIL/WHITE PETROLATUM OINTMENT 1 APPLIC EACH EYE ×2 (09:04→21:37)
[2021-06-07] MEDS: PANTOPRAZOLE SODIUM IV 40 MG VIAL IV PUSH ×2 (09:04→21:38)
[2021-06-07] MEDS: PROPOFOL IV EMULSION 100 ML 8.58 MG IV CONT (09:05)
--- NOTE | 2021-06-07 12:08 | PCFNICU ---
ICU Rounding Note: Pt current nutrition is Nepro tube feedings. Nutrition recommendation: goal rate at 30 ml/hr Last recorded weight is 51.5 kg, down from 57.2 kg on admit. Bowel Motility: Last BM reported 06/05 Labs Reviewed:Cr 6.6,BUN 48, GFR 10, Na 135, Hct 26.7,Hgb 8.8 Meds Noted:Propofol 25 lzow=083 kcals, Protonix, Keppra, Zosyn,Lipitor, Lovenox. Skin: WNL Additional Notes: Patient had Dobbhoff replaced yesterday. Nursing reporting clogged Dobbhoff at this time, tube feedings are on hold. Propofol increased from 15 mics to 25 mics today providing an additional 227 kcals. Recommend tube feeding goal rate at 30 ml/hr of Nepro providing 1188 kcals/53 gms protein/480 ml water. Free water flush 30 ml q 4 hours. Agree with diet orders. Will continue to monitor propofol infusion for any tube feeding rate changes. Following daily in ICU rounds and reassessing every Friday and Friday.
[2021-06-07 12:10] LABS: Glucose Point of Care 102 mg/dl (65-105)
--- NOTE | 2021-06-07 12:32 | P.PNINT_ITS ---
Progress Note: A&P Assessment and Plan (1) Acute respiratory failure with hypoxia: Code(s): J96.01 - Acute respiratory failure with hypoxia Status: Acute Assessment and Plan: Patient intubated now for airway protection and hypoxia, could be related to aspiration as he has a large Zenker's diverticulum Chest x-ray this morning shows Decreasing bilateral lung disease consistent with improving pneumonia and pulmonary -currently on peep of 5 and 30% FiO2 -continue bronchodilators -continue Zosyn -patient will be dialyzed again today, per Nephrology -will try to place on breathing trial (2) Multilobar lung infiltrate: Code(s): R91.8 - Other nonspecific abnormal finding of lung field Status: Acute Assessment and Plan: Suspect aspiration Patient has completed a course of antibiotics earlier this hospitalization continue Zosyn -06/02/2021 sputum cultures are negative, 06/01/2021 urine cultures are negative, 05/31/2021 blood cultures x2 negative. (3) Pneumonia due to COVID-19 virus: Code(s): U07.1 - COVID-19; J12.82 - Pneumonia due to coronavirus disease 2018 Status: Acute Assessment and Plan: Patient was tested positive for COVID-19 He had finished a [address] course of dexamethasone CT findings did not suggest COVID pneumonia but more likely bacterial pneumonia No further treatment for COVID at this time (4) GI bleeding: Code(s): K92.2 - Gastrointestinal hemorrhage, unspecified Status: Acute Assessment and Plan: Hemoglobin dropped as low as 3.7 on 05/31/2021, that is when he was transferred to the ICU 06/01 EGD was performed and showed large Zenker's diverticulam, small hiatal hernia, gastritis with erythema and edematous changes, no ulcer seen continue to hold Eliquis for now. patient was started on prophylactic dose to Lovenox. hemoglobin has been stable and I will advance him to full dose today and monitor He was transfused 4 units of PRBC on 05/31/2021 and his hemoglobin has improved and is remained stable NPO for now and we have not been able to place an NG or OG multiple attempts. even GI was unable to place a gastric tube with EGD yesterday. 06/01 Fluoroscopic guided Dobbhoff was placed with difficulty 06/02 -06/05: Dobbhoff was clogged, patient going today for another Dobbhoff tube placement by Interventional Radiology Continue PPI IV q.12 hours Monitor hemoglobin (5) Anemia: Code(s): D64.9 - Anemia, unspecified Status: Chronic Assessment and Plan: Likely secondary to GI bleed as above Hematology was consulted by Dr. Tejada. Discussed with Hematology with no further recommendations except continue Epogen Eliquis has been held. 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 these abnormalities are suggestive of underlying organic or metabolic encephalopathy or postictal state .clinical correlation recommended neurology consulted and is following (7) End stage renal disease: Code(s):
[2021-06-07 17:06] LABS: Glucose Point of Care 121 mg/dl (65-105)
[2021-06-07] MEDS: allopurinoL 100 MG TABLET PO (21:37)
[2021-06-07] MEDS: ATORVASTATIN 20 MG TABLET PO (21:38)
[2021-06-07] MEDS: PROPOFOL IV EMULSION 100 ML 6.86 MG IV CONT (21:42)
[2021-06-08] VITALS (20 sets, daily range): BP systolic 97–139; BP diastolic 42–79; PULSE 83–112; RESP 14–20; TEMP 36.2–37.6; O2SAT 96–100
[2021-06-08 01:04] LABS: Glucose Point of Care 133 mg/dl (65-105)
[2021-06-08 04:53] LABS: Alveolar/Arterial O2 Gradient 123.9 mmHg; Carboxyhemoglobin 0.3 % THb (0-2.0); Fractional Inspired Oxygen 35 %; HCO3 ABG 29.3 mEq/l (22.0-26.0); Methemoglobin ABG 0.3 %THb (0-1.5); Oxygen Content ABG 13.3 %vol (16.0-22.0); Oxygen Saturation ABG 97.1 % (95.0-100.0); PO2 ABG 82.6 mmHg (80.0-100.0); PO2 FiO2 Ratio Arterial Blood 2.36 %; Reduced Hemoglobin 4.4 %THb (0-5.0); Total Hemoglobin 9.9 g/dL (12.0-18.0)
[2021-06-08 04:56] LABS: Device VENTILATOR; Modified Allen's Test Unable to perform; Site Drawn LEFT RADIAL; pH ABG 7.516 (7.350-7.450)
[2021-06-08 04:57] LABS: Arterial Blood Gas PEEP 5 cmH2O; Arterial Blood Gas Tidal Volume 320 ml; Arterial Blood Gas Vent Mode CMV; Arterial Blood Gas Ventilator rate 16 /MIN
[2021-06-08] MEDS: CENTRAL LINE FLUSH 10 ML IV PUSH ×3 (05:57→20:30)
[2021-06-08 06:06] LABS: Glucose Point of Care 114 mg/dl (65-105)
[2021-06-08 06:14] LABS: Hematocrit 22.9 % (42.0-52.0); Hemoglobin 7.4 g/dL (14.0-18.0); Mean Corpuscular HGB Conc 32.3 g/dl (32-36); Mean Corpuscular Hemoglobin 33.6 pg (26-34); Mean Corpuscular Volume 104.1 fl (80-100); Mean Platelet Volume 9.9 fl (7.4-10.4); Platelet Count Result 124 k/mm3 (150-375); Red Cell Distribution Width 19.9 % (11.5-14.5); White Blood Count 6.4 K/mm3 (4.5-10.0)
[2021-06-08 06:29] LABS: Anion Gap 2 mmol/L (8-16); Blood Urea Nitrogen 49 mg/dL (9-20); Carbon Dioxide 32 mmol/L (22-30); Chloride 101 mmol/L (98-107); Estimated CRCL calculation 9 ml/min; Estimated Glomerular Filt Rate 13; Glucose 142 mg/dL (65-110); Magnesium 2.1 mg/dL (1.6-2.3); Phosphorus 2.6 mg/dL (2.5-4.5); Potassium 3.8 mmol/L (3.4-5.0); Sodium 135 mmol/L (137-145)
[2021-06-08] MEDS: MINERAL OIL/WHITE PETROLATUM OINTMENT 1 APPLIC EACH EYE (08:38)
[2021-06-08] MEDS: FOLIC ACID 1 MG TABLET FEED TUBE (08:38)
[2021-06-08] MEDS: polyethylene glycoL 3350 17 GM POWD.PACK PO (08:38)
[2021-06-08] MEDS: ENOXAPARIN 60 MG/0.6 ML SYRINGE SUB-Q (08:38)
[2021-06-08] MEDS: levETIRAcetam 500MG/NACL 100ML 500 MG/100 ML BAG 400 MG IVPB ×2 (08:38→20:30)
[2021-06-08] MEDS: PANTOPRAZOLE SODIUM IV 40 MG VIAL IV PUSH ×2 (08:39→20:30)
--- NOTE | 2021-06-08 10:23 | P.PNNP_ITS ---
Progress Note: A&P Assessment and Plan (1) End stage renal disease: Code(s): N18.6 - End stage renal disease Status: Chronic Assessment and Plan: * outpatient schedule of HD every Friday (prior to COVID positivity) * outpatient dialysis unit = [facility] * primary sports book board attendant = Dr. Blackman * He is due for dialysis tomorrow. Try for 2L tomorrow * Electrolytes look okay (2) Acute respiratory failure with hypoxia: Code(s): J96.01 - Acute respiratory failure with hypoxia Status: Acute Assessment and Plan: * due to COVID-19, bacterial pneumonia, and possibly aspiration status post respiratory arrest while severely anemic. * on ventilator support. Gases showed metabolic alkalosis with enhanced respiratory compensation. He over breathe the vent at the time. * on antibiotic therapy * Getting pulmonary toilet. * FiO2 30%. * Go for 2 L of fluid Tomorrow (3) Pneumonia due to COVID-19 virus: Code(s): U07.1 - COVID-19; J12.82 - Pneumonia due to coronavirus disease 2018 Status: Acute Assessment and Plan: * noted positive testing at [place] [facility] * completed course of steroids * respiratory isolation timed out. (4) Hypotension: Code(s): I95.9 - Hypotension, unspecified Status: Acute Assessment and Plan: * the patient is off pressors. (5) Anemia: Code(s): D64.9 - Anemia, unspecified Status: Chronic Assessment and Plan: * partly related to ESRD but suspect acute worsening due to GI bleed * s/p EGD (06/01/21) with large Zenker's diverticulum, small hiatal hernia, gastritis but no ulcer seen * s/p PRBC transfusiuon * hb 8.8 today * Iron is okay. B12 okay. Retic count is doing pretty well. Folate is low. supplement ordered. * [place] [address] [place]. * Supplement folate. (6) Fecal impaction: Code(s): K56.41 - Fecal impaction Status: Acute Assessment and Plan: * resolved Subjective Date/time seen: 06/08/21 10:23 Interval history: Patient is lying in bed comfortably. He is sedated. He had dialysis yesterday. 1000cc were removed Patient is sedated and cannot give a history or review of systems Exam Narrative: General: ill appearing AA male lying in the bed intubated Heart: Regular rate and rhythm. No rub or gallop Lungs: Coarse and symmetric to auscultation. Abdomen: soft, nontender, nondistended, positive bowel sounds Extremities: no edema or cyanosis Skin: No rash or subQ nodules Objective Data Vital Signs Vital Signs: Vital Signs - 24 hr 06/07/21 10:30 06/07/21 11:00 06/07/21 11:02 Temperature 36.4 C Pulse Rate 86 85 86 Respiratory Rate 14 Blood Pressure 111/57 L 121/58 L Pulse Oximetry 100 100 06/07/21 11:40 06/07/21 12:00 06/07/21 13:16 Temperature 36.6 C Pulse Rate 87 86 86 Respiratory Rate 16 24 H 18 Blood Pressure 123/50 L Pulse Oximetry 96 97 06/07/21 14:00 06/07/21 14:40 06/07/21 15:00 Temperature Pulse Rate 89 89 90 Respiratory Rate 16 17 Blood Pressure 110/51 L Pulse Oximetry 94 100 98 06/07/21 16:00 06/07/21 16:13 06/07/21 17:15 Temperature 36.9 C Pulse Rate 93 78 91
--- NOTE | 2021-06-08 10:23 | PM.PNNEP ---
Progress Note: A&P Assessment and Plan (1) End stage renal disease: Code(s): N18.6 - End stage renal disease Status: Chronic Assessment and Plan: outpatient schedule of HD every Friday (prior to COVID positivity) outpatient dialysis unit = [facility] primary transportation program director = Dr. Blackman He is due for dialysis tomorrow. Try for 2L tomorrow Electrolytes look okay (2) Acute respiratory failure with hypoxia: Code(s): J96.01 - Acute respiratory failure with hypoxia Status: Acute Assessment and Plan: due to COVID-19, bacterial pneumonia, and possibly aspiration status post respiratory arrest while severely anemic. on ventilator support. Gases showed metabolic alkalosis with enhanced respiratory compensation. He over breathe the vent at the time. on antibiotic therapy Getting pulmonary toilet. FiO2 30%. Go for 2 L of fluid Tomorrow (3) Pneumonia due to COVID-19 virus: Code(s): U07.1 - COVID-19; J12.82 - Pneumonia due to coronavirus disease 2019 Status: Acute Assessment and Plan: noted positive testing at [place] [facility] completed course of steroids respiratory isolation timed out. (4) Hypotension: Code(s): I95.9 - Hypotension, unspecified Status: Acute Assessment and Plan: the patient is off pressors. (5) Anemia: Code(s): D64.9 - Anemia, unspecified Status: Chronic Assessment and Plan: partly related to ESRD but suspect acute worsening due to GI bleed s/p EGD (06/01/21) with large Zenker's diverticulum, small hiatal hernia, gastritis but no ulcer seen s/p PRBC transfusiuon hb 8.8 today Iron is okay. B12 okay. Retic count is doing pretty well. Folate is low. supplement ordered. [place] [address] [place]. Supplement folate. (6) Fecal impaction: Code(s): K56.41 - Fecal impaction Status: Acute Assessment and Plan: resolved Subjective Date/time seen: 06/08/21 10:23 Interval history: Patient is lying in bed comfortably. He is sedated. He had dialysis yesterday. 1000cc were removed Patient is sedated and cannot give a history or review of systems Exam Narrative: General: ill appearing AA male lying in the bed intubated Heart: Regular rate and rhythm. No rub or gallop Lungs: Coarse and symmetric to auscultation. Abdomen: soft, nontender, nondistended, positive bowel sounds Extremities: no edema or cyanosis Skin: No rash or subQ nodules Objective Data Vital Signs Vital Signs: Vital Signs - 24 hr 06/07/21 10:30 06/07/21 11:00 06/07/21 11:02 Temperature 36.4 C Pulse Rate 86 85 86 Respiratory Rate 14 Blood Pressure 111/57 L 121/58 L Pulse Oximetry 100 100 06/07/21 11:40 06/07/21 12:00 06/07/21 13:16 Temperature 36.6 C Pulse Rate 87 86 86 Respiratory Rate 16 24 H 18 Blood Pressure 123/50 L Pulse Oximetry 96 97 06/07/21 14:00 06/07/21 14:40 06/07/21 15:00 Temperature Pulse Rate 89 89 90 Respiratory Rate 16 17 Blood Pressure 110/51 L Pulse Oximetry 94 100 98 06/07/21 16:00 06/07/21 16:13 06/07/21 17:15 Temperature 36.9 C Pulse Rate 93 78 91 Respiratory Rate 16 18 Blood Pressure 113/45 L Pulse Oximetry 95 94 06/07/21 18:00 06/07/21 20:00 06/07/21 20:02 Temperature Pulse Rate 87 82 83 Respiratory Rate 18 Blood Pressure 110/51 L Pulse Oximetry 100 100 06/07/21 21:31 06/07/21 21:42 06/07/21 22:00 Temperature 36.8 C Pulse Rate 89 86 79 Respiratory Rate 17 22 H 19 Blood Pressure 110/44 L 122/57 L Pulse Oximetry 97 100 06/07/21 23:23 06/08/21 00:00 06/08/21 02:00 Temperature 37.1 C Pulse Rate 99 88 83 Respiratory Rate 19 16 Blood Pressure 110/50 L 103/51 L Pulse Oximetry 96 100 98 06/08/21 02:18 06/08/21 04:00 06/08/21 04:58 Temperature 37.1 C Pulse Rate 90 87 90 Respiratory Rate 18 Blood Pressure 130/50 L Pulse Oximetry
--- NOTE | 2021-06-08 12:01 | PCNFU ---
Nutrition Follow-Up Complete: Inadequate oral intake related to ARF w/hypoxia and COVID as evidenced by reported average intake of 6% goal: Pt to meet 75% of estimated nutritional needs Patient is progressing towards goal. We will continue current goal. Pt current nutrition is Nepro at 40 ml/hr over 22 hours. Last recorded weight is 53.3 kg, down from 57.2 kg on admit. Bowel Motility:+BM reported 06/05 Labs Reviewed: Glu 142, Cr 5.10,BUN 49, GFR 13, Na 135, Alb 3.0,Hct 22.9, Hgb 7.4 Meds Noted:Keppra, Retacrit, Miralax, Protonix, Zosyn, Folic Acid. Skin: WNL Additional Notes: Patient remains on mechanical vent. Tube feedings currently on hold for breathing trial. If patient remains on tube feedings recommend continuing Nepro at 40 ml/hr over 22 hours providing 1584 kcals/71 gms protein/640 ml water. Meeting 100% of caloric needs and 89%protein needs. Free water flush 30 ml q 4 hours. Agree with diet orders. Will monitor in ICU rounds and reassessing every Friday and Friday.
--- NOTE | 2021-06-08 12:21 | WPDINTPN ---
Progress Note: A&P Assessment and Plan (1) Acute respiratory failure with hypoxia: Code(s): J96.01 - Acute respiratory failure with hypoxia Status: Acute Assessment and Plan: Patient intubated now for airway protection and hypoxia, could be related to aspiration as he has a large Zenker's diverticulum Chest x-ray this morning shows Unchanged opacities in the left mid to lower and right lower lung zones which could represent or pneumonia or atelectasis, possibly with superimposed small left pleural effusion. -currently on peep of 5 and 30% FiO2 -continue bronchodilators -continue Zosyn -patient will be dialyzed again today, per Nephrology -propofol has been discontinued, patient placed on SBT, tolerating well, will obtain ABGs and evaluate for extubation (2) Multilobar lung infiltrate: Code(s): R91.8 - Other nonspecific abnormal finding of lung field Status: Acute Assessment and Plan: Suspect aspiration Patient has completed a course of antibiotics earlier this hospitalization continue Zosyn started on 05/31/2021, continue for total of 10 days -06/02/2021 sputum cultures are negative, 06/01/2021 urine cultures are negative, 05/31/2021 blood cultures x2 negative. (3) Pneumonia due to COVID-19 virus: Code(s): U07.1 - COVID-19; J12.82 - Pneumonia due to coronavirus disease 2019 Status: Acute Assessment and Plan: Patient was tested positive for COVID-19 He had finished a [address] course of dexamethasone CT findings did not suggest COVID pneumonia but more likely bacterial pneumonia No further treatment for COVID at this time (4) GI bleeding: Code(s): K92.2 - Gastrointestinal hemorrhage, unspecified Status: Acute Assessment and Plan: Hemoglobin dropped as low as 3.7 on 05/31/2021, that is when he was transferred to the ICU 06/01 EGD was performed and showed large Zenker's diverticulam, small hiatal hernia, gastritis with erythema and edematous changes, no ulcer seen continue to hold Eliquis for now. patient was started on prophylactic dose to Lovenox. hemoglobin has been stable and I will advance him to full dose today and monitor He was transfused 4 units of PRBC on 05/31/2021 and his hemoglobin has improved and is remained stable NPO for now and we have not been able to place an NG or OG multiple attempts. even GI was unable to place a gastric tube with EGD yesterday. 06/01 Fluoroscopic guided Dobbhoff was placed with difficulty 06/02 -06/05: Dobbhoff was clogged, patient going today for another Dobbhoff tube placement by Interventional Radiology Continue PPI IV q.12 hours Monitor hemoglobin (5) Anemia: Code(s): D64.9 - Anemia, unspecified Status: Chronic Assessment and Plan: Likely secondary to GI bleed as above Hematology was consulted by Dr. Tejada. Discussed with Hematology with no further recommendations except continue Epogen Eliquis has been held. 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 these abnormalities are suggestive of underlying organic or metabolic encephalopathy or postictal state .clinical correlation recommended neurology consulted and is following (7) End stage renal disease: Code(s): N18.6 - End stage renal disease Status: Chron
[2021-06-08 12:22] LABS: Glucose Point of Care 130 mg/dl (65-105)
[2021-06-08 12:54] LABS: Base Excess ABG 5.4 mEq/l (+/-2.0); Fractional Inspired Oxygen 35 %; HCO3 ABG 28.9 mEq/l (22.0-26.0); Oxygen Content ABG 8.9 %vol (16.0-22.0); Oxygen Saturation ABG 96.8 % (95.0-100.0); Oxyhemoglobin 94.1 % THb (90.0-100.0); PCO2 ABG 37.3 mmHg (35.0-45.0); PO2 ABG 80.2 mmHg (80.0-100.0); PO2 FiO2 Ratio Arterial Blood 2.29 %
[2021-06-08 12:58] LABS: Device VENTILATOR; Modified Allen's Test Pass; Site Drawn RIGHT RADIAL; Total Hemoglobin 6.6 g/dL (12.0-18.0); pH ABG 7.507 (7.350-7.450)
[2021-06-08 12:59] LABS: Arterial Blood Gas PEEP 5 cmH2O; Arterial Blood Gas Pressure Support 8 cmH2O; Arterial Blood Gas Vent Mode SPONTANEOUS
[2021-06-08 13:38] LABS: Hematocrit 20.5 % (42.0-52.0); Hemoglobin 6.8 g/dL (14.0-18.0)
[2021-06-08 15:33] LABS: IFOB Positive Control Positive; Immunochemical Fecal Occult Bl Positive (N)
[2021-06-08 17:21] LABS: Glucose Point of Care 111 mg/dl (65-105)
--- NOTE | 2021-06-08 17:40 | PM.IMPN ---
Progress Note: A&P Assessment and Plan (1) Acute respiratory failure with hypoxia: Code(s): J96.01 - Acute respiratory failure with hypoxia Status: Acute Assessment and Plan: Patient intubated now for airway protection and hypoxia, could be related to aspiration as he has a large Zenker's diverticulum Chest x-ray this morning shows Unchanged opacities in the left mid to lower and right lower lung zones which could represent or pneumonia or atelectasis, possibly with superimposed small left pleural effusion. -continue bronchodilators -continue Zosyn Patient extubated this morning on nasal cannula oxygen (2) Multilobar lung infiltrate: Code(s): R91.8 - Other nonspecific abnormal finding of lung field Status: Acute Assessment and Plan: Suspect aspiration Patient has completed a course of antibiotics earlier this hospitalization continue Zosyn started on 05/31/2021, continue for total of 10 days -06/02/2021 sputum cultures are negative, 06/01/2021 urine cultures are negative, 05/31/2021 blood cultures x2 negative. (3) Pneumonia due to COVID-19 virus: Code(s): U07.1 - COVID-19; J12.82 - Pneumonia due to coronavirus disease 2018 Status: Acute Assessment and Plan: Patient was tested positive for COVID-19 He had finished a [address] course of dexamethasone CT findings did not suggest COVID pneumonia but more likely bacterial pneumonia No further treatment for COVID at this time (4) GI bleeding: Code(s): K92.2 - Gastrointestinal hemorrhage, unspecified Status: Acute Assessment and Plan: Hemoglobin dropped as low as 3.7 on 05/31/2021, that is when he was transferred to the ICU 06/01 EGD was performed and showed large Zenker's diverticulam, small hiatal hernia, gastritis with erythema and edematous changes, no ulcer seen continue to hold Eliquis for now. patient was started on prophylactic dose to Lovenox. hemoglobin has been stable and I will advance him to full dose today and monitor He was transfused 4 units of PRBC on 05/31/2021 and his hemoglobin has improved and is remained stable NPO for now and we have not been able to place an NG or OG multiple attempts. even GI was unable to place a gastric tube with EGD yesterday. 06/01 Fluoroscopic guided Dobbhoff was placed with difficulty 2 -06/05: Dobbhoff was clogged, patient going today for another Dobbhoff tube placement by Interventional Radiology Continue PPI IV q.12 hours Monitor hemoglobin (5) Anemia: Code(s): D64.9 - Anemia, unspecified Status: Chronic Assessment and Plan: Likely secondary to GI bleed as above Hematology was consulted by Dr. Tejada. Discussed with Hematology with no further recommendations except continue Epogen Eliquis has been held. -hemoglobin trending down, 7.4 this morning, but trended down to 6.8. 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 these abnormalities are suggestive of underlying organic or metabolic encephalopathy or postictal state .clinical correlation recommended neurology consulted and is following (7) End stage renal disease: Code(s): N18.6 - End stage renal disease Status: Chronic Assessment and Plan: Nephrology is already following and hemodialysis per schedule (8) Fecal impaction: Code(s):
[2021-06-09] VITALS (34 sets, daily range): BP systolic 76–148; BP diastolic 36–82; PULSE 95–131; RESP 14–26; TEMP 36–37.7; O2SAT 92–100
[2021-06-09 00:24] LABS: Glucose Point of Care 106 mg/dl (65-105)
[2021-06-09 05:03] LABS: Alveolar/Arterial O2 Gradient 78.9 mmHg; Base Excess ABG 5.5 mEq/l (+/-2.0); Carboxyhemoglobin 0.3 % THb (0-2.0); Fractional Inspired Oxygen 28 %; HCO3 ABG 29.4 mEq/l (22.0-26.0); Methemoglobin ABG 0.7 %THb (0-1.5); Oxygen Content ABG 9.7 %vol (16.0-22.0); Oxygen Saturation ABG 95.8 % (95.0-100.0); Oxyhemoglobin 92.5 % THb (90.0-100.0); PCO2 ABG 39.7 mmHg (35.0-45.0); PO2 ABG 73.9 mmHg (80.0-100.0); PO2 FiO2 Ratio Arterial Blood 2.64 %; Reduced Hemoglobin 6.5 %THb (0-5.0); pH ABG 7.487 (7.350-7.450)
[2021-06-09 05:05] LABS: Device NASAL CANNULA; Modified Allen's Test Pass; Site Drawn LEFT RADIAL; Total Hemoglobin 7.4 g/dL (12.0-18.0)
[2021-06-09] MEDS: CENTRAL LINE FLUSH 10 ML IV PUSH ×3 (05:13→20:45)
[2021-06-09 05:36] LABS: Glucose Point of Care 113 mg/dl (65-105)
[2021-06-09 07:04] LABS: Hematocrit 22.2 % (42.0-52.0); Hemoglobin 7.4 g/dL (14.0-18.0); Mean Corpuscular HGB Conc 33.3 g/dl (32-36); Mean Corpuscular Hemoglobin 32.7 pg (26-34); Mean Corpuscular Volume 98.2 fl (80-100); Mean Platelet Volume 9.8 fl (7.4-10.4); Platelet Count Result 124 k/mm3 (150-375); Red Blood Count 2.26 M/mm3 (4.6-6.20); Red Cell Distribution Width 18.5 % (11.5-14.5); White Blood Count 8.7 K/mm3 (4.5-10.0)
[2021-06-09 07:15] LABS: Alanine Aminotransferase 15 U/L (4-50); Albumin Level 2.8 g/dL (3.5-5.1); Alkaline Phosphatase 47 U/L (38-126); Anion Gap 4 mmol/L (8-16); Aspartate Amino Transferase 28 U/L (17-59); Bilirubin,Total 0.2 mg/dL (0.2-1.3); Blood Urea Nitrogen 87 mg/dL (9-20); Calcium 7.6 mg/dL (8.4-10.2); Carbon Dioxide 28 mmol/L (22-30); Chloride 102 mmol/L (98-107); Estimated CRCL calculation 6 ml/min; Estimated Glomerular Filt Rate 9; Glucose 117 mg/dL (65-110); Potassium 4.4 mmol/L (3.4-5.0); Sodium 134 mmol/L (137-145)
[2021-06-09 07:17] LABS: Magnesium 2.3 mg/dL (1.6-2.3); Phosphorus 3.1 mg/dL (2.5-4.5)
[2021-06-09] MEDS: levETIRAcetam 500MG/NACL 100ML 500 MG/100 ML BAG 400 MG IVPB ×2 (08:46→20:26)
[2021-06-09] MEDS: PANTOPRAZOLE SODIUM IV 40 MG VIAL IV PUSH ×2 (08:47→20:33)
[2021-06-09] MEDS: SODIUM CHLORIDE 0.9% IV 250 ML 30 ML IV CONT (08:58)
--- NOTE | 2021-06-09 10:14 | P.PNNP_ITS ---
Progress Note: A&P Assessment and Plan (1) End stage renal disease: Code(s): N18.6 - End stage renal disease Status: Chronic Assessment and Plan: * outpatient schedule of HD every Friday (prior to COVID positivity) * outpatient dialysis unit = [facility] * primary record filing clerk = Dr. Blackman * dialysis underway (2) Acute respiratory failure with hypoxia: Code(s): J96.01 - Acute respiratory failure with hypoxia Status: Acute Assessment and Plan: * due to COVID-19, bacterial pneumonia, and possibly aspiration status post respiratory arrest while severely anemic. * off the ventilator now. Getting oxygen. (3) Pneumonia due to COVID-19 virus: Code(s): U07.1 - COVID-19; J12.82 - Pneumonia due to coronavirus disease 2018 Status: Acute Assessment and Plan: * noted positive testing at [facility] * completed course of steroids * respiratory isolation timed out. (4) Hypotension: Code(s): I95.9 - Hypotension, unspecified Status: Acute Assessment and Plan: * the patient is off pressors. (5) Anemia: Code(s): D64.9 - Anemia, unspecified Status: Chronic Assessment and Plan: * partly related to ESRD but suspect acute worsening due to GI bleed * s/p EGD (06/01/21) with large Zenker's diverticulum, small hiatal hernia, gastritis but no ulcer seen * s/p PRBC transfusiuon * hb Down to 7.4 due to GI bleeding. * He is getting Epogen. (6) Fecal impaction: Code(s): K56.41 - Fecal impaction Status: Acute Assessment and Plan: * resolved Subjective Date/time seen: 06/09/21 10:14 Interval history: Patient is lying in bed comfortably. he was extubated. he answers occasional yes no questions but tires easily. He is on dialysis and tolerating it well. His blood pressure has been a little bit soft so only about 1L is going to be removed. He developed GI bleeding and so will not push the fluid removal. he was seen at 9:45 a.m. He cannot give much of a history or review of systems due to his medical condition Exam Narrative: General: Well-developed well-nourished both are Shayne male in no acute distress Heart: Regular rate and rhythm. No rub or gallop Lungs: Coarse and symmetric to auscultation. Abdomen: soft, nontender, nondistended, positive bowel sounds Extremities: no edema or cyanosis Skin: No rash Objective Data Vital Signs Vital Signs: Vital Signs - 24 hr 06/08/21 11:21 06/08/21 12:00 06/08/21 13:20 Temperature 37.6 C H Pulse Rate 111 H 100 Respiratory Rate 17 Blood Pressure 123/51 L Pulse Oximetry 99 97 98 06/08/21 13:26 06/08/21 14:00 06/08/21 16:00 Temperature 37.3 C Pulse Rate 101 H 93 102 H Respiratory Rate 20 20 17 Blood Pressure 133/55 L 139/46 L Pulse Oximetry 96 99 97 06/08/21 18:00 06/08/21 20:00 06/08/21 22:00 Temperature 36.2 C L Pulse Rate 90 99 98 Respiratory Rate 15 16 14 Blood Pressure 120/42 L 111/45 L 104/44 L Pulse Oximetry 98 100 100 06/09/21 00:00 06/09/21 00:46 06/09/21 02:00 Temperature 37.2 C Pulse Rate 99 95 Respiratory Rate 16 15 Blood Pressure 117/53 L 127/47 L
--- NOTE | 2021-06-09 10:14 | PM.PNNEP ---
Progress Note: A&P Assessment and Plan (1) End stage renal disease: Code(s): N18.6 - End stage renal disease Status: Chronic Assessment and Plan: outpatient schedule of HD every Friday (prior to COVID positivity) outpatient dialysis unit = [facility] primary quill cleaning machine operator = Dr. Blackman dialysis underway (2) Acute respiratory failure with hypoxia: Code(s): J96.01 - Acute respiratory failure with hypoxia Status: Acute Assessment and Plan: due to COVID-19, bacterial pneumonia, and possibly aspiration status post respiratory arrest while severely anemic. off the ventilator now. Getting oxygen. (3) Pneumonia due to COVID-19 virus: Code(s): U07.1 - COVID-19; J12.82 - Pneumonia due to coronavirus disease 2018 Status: Acute Assessment and Plan: noted positive testing at [facility] completed course of steroids respiratory isolation timed out. (4) Hypotension: Code(s): I95.9 - Hypotension, unspecified Status: Acute Assessment and Plan: the patient is off pressors. (5) Anemia: Code(s): D64.9 - Anemia, unspecified Status: Chronic Assessment and Plan: partly related to ESRD but suspect acute worsening due to GI bleed s/p EGD (06/01/21) with large Zenker's diverticulum, small hiatal hernia, gastritis but no ulcer seen s/p PRBC transfusiuon hb Down to 7.4 due to GI bleeding. He is getting Epogen. (6) Fecal impaction: Code(s): K56.41 - Fecal impaction Status: Acute Assessment and Plan: resolved Subjective Date/time seen: 06/09/21 10:14 Interval history: Patient is lying in bed comfortably. he was extubated. he answers occasional yes no questions but tires easily. He is on dialysis and tolerating it well. His blood pressure has been a little bit soft so only about 1L is going to be removed. He developed GI bleeding and so will not push the fluid removal. he was seen at 9:45 a.m. He cannot give much of a history or review of systems due to his medical condition Exam Narrative: General: Well-developed well-nourished both are Shayne male in no acute distress Heart: Regular rate and rhythm. No rub or gallop Lungs: Coarse and symmetric to auscultation. Abdomen: soft, nontender, nondistended, positive bowel sounds Extremities: no edema or cyanosis Skin: No rash Objective Data Vital Signs Vital Signs: Vital Signs - 24 hr 06/08/21 11:21 06/08/21 12:00 06/08/21 13:20 Temperature 37.6 C H Pulse Rate 111 H 100 Respiratory Rate 17 Blood Pressure 123/51 L Pulse Oximetry 99 97 98 06/08/21 13:26 06/08/21 14:00 06/08/21 16:00 Temperature 37.3 C Pulse Rate 101 H 93 102 H Respiratory Rate 20 20 17 Blood Pressure 133/55 L 139/46 L Pulse Oximetry 96 99 97 06/08/21 18:00 06/08/21 20:00 06/08/21 22:00 Temperature 36.2 C L Pulse Rate 90 99 98 Respiratory Rate 15 16 14 Blood Pressure 120/42 L 111/45 L 104/44 L Pulse Oximetry 98 100 100 06/09/21 00:00 06/09/21 00:46 06/09/21 02:00 Temperature 37.2 C Pulse Rate 99 95 Respiratory Rate 16 15 Blood Pressure 117/53 L 127/47 L Pulse Oximetry 100 96 100 06/09/21 03:20 06/09/21 03:37 06/09/21 04:00 Temperature 36.5 C 36.4 C 36.1 C L Pulse Rate 107 H 103 H 103 H Respiratory Rate 15 15 16 Blood Pressure 87/36 L 106/53 L 125/81 Pulse Oximetry 100 99 100 06/09/21 04:37 06/09/21 05:37 06/09/21 05:50 Temperature 36.1 C L 36.1 C L 36.1 C L Pulse Rate 100 101 H 96 Respiratory Rate 14 15 15 Blood Pressure 126/58 L 138/66 129/55 L Pulse Oximetry 100 98 99 06/09/21 05:58 06/09/21 08:58 06/09/21 09:07 Temperature 37.2 C 36.7 C Pulse Rate 96 123 H 121 H Respiratory Rate 20 20 Blood Pressure 92/46 L 122/82 Pulse Oximetry 92 100 06/09/21 09:42 Temperature 37.7 C H Pulse Rate 121 H Respiratory Rate 22 H Blood Pressure 114/78 Pulse Oximetry 93
[2021-06-09 11:31] LABS: Hematocrit 32.9 % (42.0-52.0); Hemoglobin 10.8 g/dL (14.0-18.0)
--- NOTE | 2021-06-09 11:37 | WPDINTPN ---
Progress Note: A&P Assessment and Plan (1) GI bleeding: Code(s): K92.2 - Gastrointestinal hemorrhage, unspecified Status: Acute Assessment and Plan: 06/08/2021: Patient had melanotic stools starting yesterday and today on 06/09/2021. -patient received a unit of packed RBCs overnight 06/08/2021, he has a lot of antibodies -patient has large melanotic stool this morning, received 2 more units of packed RBCs on 06/09/2021 -repeat hemoglobin is 10.8 -GI has been re-consulted -continue to monitor for now if patient bleeds further may require scope -holding Lovenox since 06/08/2021 -continue PPI IV Q12 hours -will continue to monitor hemoglobin q.6 hours x4 -patient has a Dobbhoff tube and tolerating tube feeds Hemoglobin dropped as low as 3.7 on 05/31/2021, that is when he was transferred to the ICU 2 EGD was performed and showed large Zenker's diverticulam, small hiatal hernia, gastritis with erythema and edematous changes, no ulcer seen He was transfused 4 units of PRBC on 05/31/2021 and his hemoglobin has improved and is remained stable 06/01 Fluoroscopic guided Dobbhoff was placed with difficulty 06/02 -06/05: Dobbhoff was clogged, a new Dobbhoff tube was placed by IR (2) Acute respiratory failure with hypoxia: Code(s): J96.01 - Acute respiratory failure with hypoxia Status: Acute Assessment and Plan: Patient successfully extubated on 06/08/2021 -remains on 4 L oxygen via nasal cannula -chest x-ray this morning: Shows improved airspace opacities at the left lung and right lung base consistent with atelectasis versus pneumonia -continue bronchodilators -continue Zosyn -patient is being dialyzed again today, 06/09/2021 (3) Multilobar lung infiltrate: Code(s): R91.8 - Other nonspecific abnormal finding of lung field Status: Acute Assessment and Plan: Suspect aspiration continue Zosyn started on 05/31/2021, continue for total of 10 days -06/09: chest x-ray shows improvement as above -06/02/2021 sputum cultures are negative, 06/01/2021 urine cultures are negative, 05/31/2021 blood cultures x2 negative. (4) Pneumonia due to COVID-19 virus: Code(s): U07.1 - COVID-19; J12.82 - Pneumonia due to coronavirus disease 2019 Status: Acute Assessment and Plan: Patient was tested positive for COVID-19 He had finished a [address] course of dexamethasone CT findings did not suggest COVID pneumonia but more likely bacterial pneumonia No further treatment for COVID at this time (5) Anemia: Code(s): D64.9 - Anemia, unspecified Status: Chronic Assessment and Plan: Likely secondary to GI bleed as above -melena Hematology was consulted by Dr. Tejada. Discussed with Hematology with no further recommendations except continue Epogen Eliquis has been on hold. 04/07: hemoglobin trending down, 7.4, patient received a total of 3 units of packed RBCs, 1 overnight and 2 this morning on 06/09. 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 these abnormalities are suggestive of underlying organic or metabolic encephalopathy or postictal state .clinical correlation recommended neurology consulted and is following (7) End stage renal disease: Code(s): N18.6 - End stage renal disease Status: Chronic Assessment
--- NOTE | 2021-06-09 13:21 | PM.IMPN ---
Progress Note: A&P Assessment and Plan (1) Acute respiratory failure with hypoxia: Code(s): J96.01 - Acute respiratory failure with hypoxia Status: Acute Assessment and Plan: Patient intubated now for airway protection and hypoxia Chest x-ray and shows bilateral infiltrates likely pulmonary edema. he received hemodialysis yesterday and 2 L fluid was removed 06/03 ABG reviewed Vent settings reviewed. weaning trial was performed this morning but patient failed due to increased work of breathing with use of some abdominal and accessory muscle, elevated respiratory rate, heart rate and blood pressure 06/09/2021 interval history: patient remains clinically stable and patient was being weaned off ventilator and hopefully extubate today, however patient was not able to tolerate and was placed back on vent, on 06/08 patient was successfully extubated and currently on NC, patient has a Dobbhoff started tube feeding, patient hemoglobin was slowly trending down had a EGD did not show any obvious source of bleeding, 06/08 and today patient had a melanotic stool hemoglobin was dropping and patient was given total of 4 units of pack RBC, patient on PPI and patient will be seen by GI and further recommendation to follow, patient was seen board liner operator unlikely hemolytic anemia suspect most likely GI cause of anemia, patient with end-stage renal disease on hemodialysis will have a scheduled dialysis seen by ethylene oxide panelboard operator. (2) Multilobar lung infiltrate: Code(s): R91.8 - Other nonspecific abnormal finding of lung field Status: Acute Assessment and Plan: Suspect aspiration Patient has completed a course of antibiotics earlier this hospitalization continue Zosyn and repeat blood and sputum culture her pending (3) Pneumonia due to COVID-19 virus: Code(s): U07.1 - COVID-19; J12.82 - Pneumonia due to coronavirus disease 2018 Status: Acute Assessment and Plan: Patient was tested positive for COVID-19 He had finished a [address] course of dexamethasone CT findings did not suggest COVID pneumonia but more likely bacterial pneumonia No further treatment for COVID at this time (4) GI bleeding: Code(s): K92.2 - Gastrointestinal hemorrhage, unspecified Status: Acute Assessment and Plan: I suspect patient has GI bleed which has led to drop in his hemoglobin. Hemoglobin on 05/28 was 8.9 and 3.7 this morning. His BUN was elevated at 147 and he was on anticoagulation 06/01 EGD was performed and showed large Zenker's diverticulam, small hiatal hernia, gastritis with erythema and edematous changes, no ulcer seen continue to hold Eliquis for now. patient was started on prophylactic dose to Lovenox. hemoglobin has been stable and I will advance him to full dose today and monitor He has been transfused 4 units of PRBC and his hemoglobin has improved and is remained stable NPO for now and we have not been able to place an NG or OG multiple attempts. even GI was unable to place a gastric tube with EGD yesterday. 2/4 Fluoroscopic guided Dobbhoff was placed with difficulty 2/5 Ppi IV q.12 hours continue hemoglobin monitoring (5) Anemia: Code(s): D64.9 - Anemia, unspecified Status: Chronic Assessment and Plan: Likely secondary to GI bleed as above Hematology was consulted by Dr. Tejada. Discussed with Hematology with no further recommendations except continue Epogen Eliquis has been held. 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
--- NOTE | 2021-06-09 13:35 | PC.NURSE ---
SBAR faxed to receiving unit at [phone].
[2021-06-09 13:48] LABS: Glucose Point of Care 121 mg/dl (65-105)
--- NOTE | 2021-06-09 14:52 | PC.NURSE ---
Report given to KAITLYNN Mcdaniel at 145. All questions answered and plan of care reviewed. Patient to go to IMU room 205-1.
[2021-06-09 18:30] LABS: Glucose Point of Care 105 mg/dl (65-105)
[2021-06-09 18:30] LABS: Glucose Point of Care 51 mg/dl (65-105)
[2021-06-09 18:31] LABS: Hematocrit 28.3 % (42.0-52.0); Hemoglobin 9.2 g/dL (14.0-18.0)
[2021-06-10] VITALS (12 sets, daily range): BP systolic 134–160; BP diastolic 47–82; PULSE 81–108; RESP 16–24; TEMP 36.2–37.4; O2SAT 92–100
[2021-06-10 00:44] LABS: Hematocrit 28.4 % (42.0-52.0); Hemoglobin 9.2 g/dL (14.0-18.0)
[2021-06-10 01:00] LABS: Glucose Point of Care 105 mg/dl (65-105)
[2021-06-10 05:22] LABS: Alveolar/Arterial O2 Gradient 41.4 mmHg; Base Excess ABG 8.3 mEq/l (+/-2.0); Carboxyhemoglobin 0.3 % THb (0-2.0); Fractional Inspired Oxygen 21 %; HCO3 ABG 32.1 mEq/l (22.0-26.0); Methemoglobin ABG 0.2 %THb (0-1.5); Oxygen Content ABG 12.5 %vol (16.0-22.0); Oxygen Saturation ABG 92.7 % (95.0-100.0); Oxyhemoglobin 89.8 % THb (90.0-100.0); PCO2 ABG 41.4 mmHg (35.0-45.0); PO2 ABG 58.8 mmHg (80.0-100.0); Reduced Hemoglobin 9.7 %THb (0-5.0); Total Hemoglobin 9.9 g/dL (12.0-18.0)
[2021-06-10 05:25] LABS: Device ROOM AIR; Modified Allen's Test Unable to perform; Site Drawn LEFT RADIAL; pH ABG 7.507 (7.350-7.450)
[2021-06-10] MEDS: CENTRAL LINE FLUSH 10 ML IV PUSH (05:41)
[2021-06-10 05:57] LABS: Hematocrit 27.5 % (42.0-52.0); Hemoglobin 8.9 g/dL (14.0-18.0)
[2021-06-10 06:20] LABS: Magnesium 2.1 mg/dL (1.6-2.3); Phosphorus 3.3 mg/dL (2.5-4.5)
[2021-06-10 06:27] LABS: Glucose Point of Care 73 mg/dl (65-105)
[2021-06-10] MEDS: levETIRAcetam 500MG/NACL 100ML 500 MG/100 ML BAG 400 MG IVPB ×2 (08:08→21:07)
[2021-06-10] MEDS: PANTOPRAZOLE SODIUM IV 40 MG VIAL IV PUSH ×2 (08:10→21:04)
--- NOTE | 2021-06-10 10:37 | P.PNNP_ITS ---
Progress Note: A&P Assessment and Plan (1) End stage renal disease: Code(s): N18.6 - End stage renal disease Status: Chronic Assessment and Plan: * outpatient schedule of HD every Friday (prior to COVID positivity) * outpatient dialysis unit = [facility] * primary greaser and oiler = Dr. Blackman * Will do a treatment tomorrow. (2) Acute respiratory failure with hypoxia: Code(s): J96.01 - Acute respiratory failure with hypoxia Status: Acute Assessment and Plan: * due to COVID-19, bacterial pneumonia, and possibly aspiration status post respiratory arrest while severely anemic. * off the ventilator now. Getting oxygen. (3) Pneumonia due to COVID-19 virus: Code(s): U07.1 - COVID-19; J12.82 - Pneumonia due to coronavirus disease 2018 Status: Acute Assessment and Plan: * noted positive testing at [place] * completed course of steroids * respiratory isolation timed out. (4) Hypotension: Code(s): I95.9 - Hypotension, unspecified Status: Acute Assessment and Plan: * the patient is off pressors. (5) Anemia: Code(s): D64.9 - Anemia, unspecified Status: Chronic Assessment and Plan: * partly related to ESRD but suspect acute worsening due to GI bleed * s/p EGD (06/01/21) with large Zenker's diverticulum, small hiatal hernia, gastritis but no ulcer seen * s/p PRBC transfusiuon * hb Back up to 8.9 today. * He is getting Epogen. (6) Fecal impaction: Code(s): K56.41 - Fecal impaction Status: Acute Assessment and Plan: * resolved Subjective Date/time seen: 06/10/21 10:37 Interval history: Patient is lying in bed comfortably. Patient is out of the ICU. He was able to mouth some words today. He could tell me his name. He tolerated his dialysis yesterday. He cannot give much of a history or review of systems due to his medical condition Exam Narrative: General: Well-developed well-nourished both are Shayne male in no acute distress Heart: Regular rate and rhythm. No rub Lungs: Coarse and symmetric to auscultation. Abdomen: soft, nontender, nondistended, positive bowel sounds Extremities: no edema Skin: No rash Mouth: dry mucus membranes Objective Data Vital Signs Vital Signs: Vital Signs - 24 hr 06/09/21 12:00 06/09/21 14:00 06/09/21 16:00 Temperature 37.2 C Pulse Rate 115 H 107 H 101 H Respiratory Rate 17 16 Blood Pressure 139/65 131/81 Pulse Oximetry 96 99 96 06/09/21 16:33 06/09/21 18:00 06/09/21 18:14 Temperature 37.0 C Pulse Rate 103 H 99 99 Respiratory Rate 22 H Blood Pressure 134/50 L Pulse Oximetry 99 06/09/21 20:00 06/09/21 22:00 06/10/21 00:00 Temperature 37.4 C 37.3 C Pulse Rate 104 H 96 96 Respiratory Rate 26 H 24 H Blood Pressure 133/53 L 134/51 L Pulse Oximetry 98 100 06/10/21 02:00 06/10/21 02:53 06/10/21 04:00 Temperature 37.4 C Pulse Rate 105 H 97 Respiratory Rate 20 Blood Pressure 143/54 H Pulse Oximetry 98 99 06/10/21 06:00 06/10/21 08:00 06/10/21 10:00 Temperature 37.0 C Pulse Rate
--- NOTE | 2021-06-10 10:37 | PM.PNNEP ---
Progress Note: A&P Assessment and Plan (1) End stage renal disease: Code(s): N18.6 - End stage renal disease Status: Chronic Assessment and Plan: outpatient schedule of HD every Friday (prior to COVID positivity) outpatient dialysis unit = [facility] primary bond analyst = Dr. Blackman Will do a treatment tomorrow. (2) Acute respiratory failure with hypoxia: Code(s): J96.01 - Acute respiratory failure with hypoxia Status: Acute Assessment and Plan: due to COVID-19, bacterial pneumonia, and possibly aspiration status post respiratory arrest while severely anemic. off the ventilator now. Getting oxygen. (3) Pneumonia due to COVID-19 virus: Code(s): U07.1 - COVID-19; J12.82 - Pneumonia due to coronavirus disease 2018 Status: Acute Assessment and Plan: noted positive testing at [place] [facility] completed course of steroids respiratory isolation timed out. (4) Hypotension: Code(s): I95.9 - Hypotension, unspecified Status: Acute Assessment and Plan: the patient is off pressors. (5) Anemia: Code(s): D64.9 - Anemia, unspecified Status: Chronic Assessment and Plan: partly related to ESRD but suspect acute worsening due to GI bleed s/p EGD (06/01/21) with large Zenker's diverticulum, small hiatal hernia, gastritis but no ulcer seen s/p PRBC transfusiuon hb Back up to 8.9 today. He is getting Epogen. (6) Fecal impaction: Code(s): K56.41 - Fecal impaction Status: Acute Assessment and Plan: resolved Subjective Date/time seen: 06/10/21 10:37 Interval history: Patient is lying in bed comfortably. Patient is out of the ICU. He was able to mouth some words today. He could tell me his name. He tolerated his dialysis yesterday. He cannot give much of a history or review of systems due to his medical condition Exam Narrative: General: Well-developed well-nourished both are Shayne male in no acute distress Heart: Regular rate and rhythm. No rub Lungs: Coarse and symmetric to auscultation. Abdomen: soft, nontender, nondistended, positive bowel sounds Extremities: no edema Skin: No rash Mouth: dry mucus membranes Objective Data Vital Signs Vital Signs: Vital Signs - 24 hr 06/09/21 12:00 06/09/21 14:00 06/09/21 16:00 Temperature 37.2 C Pulse Rate 115 H 107 H 101 H Respiratory Rate 17 16 Blood Pressure 139/65 131/81 Pulse Oximetry 96 99 96 06/09/21 16:33 06/09/21 18:00 06/09/21 18:14 Temperature 37.0 C Pulse Rate 103 H 99 99 Respiratory Rate 22 H Blood Pressure 134/50 L Pulse Oximetry 99 06/09/21 20:00 06/09/21 22:00 06/10/21 00:00 Temperature 37.4 C 37.3 C Pulse Rate 104 H 96 96 Respiratory Rate 26 H 24 H Blood Pressure 133/53 L 134/51 L Pulse Oximetry 98 100 06/10/21 02:00 06/10/21 02:53 06/10/21 04:00 Temperature 37.4 C Pulse Rate 105 H 97 Respiratory Rate 20 Blood Pressure 143/54 H Pulse Oximetry 98 99 06/10/21 06:00 06/10/21 08:00 06/10/21 10:00 Temperature 37.0 C Pulse Rate 105 H 100 95 Respiratory Rate 16 Blood Pressure 160/82 H Pulse Oximetry 92 95 Intake/Output Intake/Output: Intake & Output 06/07/21 06/08/21 06/09/21 06/10/21 23:59 23:59 23:59 23:59 Intake Total 1215 1412.9 1447 50 Output Total 1200 45 120 50 Balance 15 1367.9 1327 0 Meds/Results Medications: Active Medications Generic Name Dose Route Start Last Admin Trade Name Josuéq PRN Reason Stop Dose Admin Acetaminophen 650 mg 05/25/21 10:22 05/25/21 12:11 Acetaminophen 325 Mg Tablet PO 650 mg Q6H PRN Administration Mild Pain (1-3) or Fever Albuterol 2 puff 05/19/21 02:00 06/06/21 08:30 Albuterol Sulfate (*Sp) Aerosol 1 Puff INHALATION Not Given Q6HRT [facility] Allopurinol 100 mg 05/19/21 21:00 06/07/21 21:37 Allopurinol 100 Mg Tablet PO 100 mg
--- NOTE | 2021-06-10 11:08 | PM.IMPN ---
Progress Note: A&P Assessment and Plan (1) Acute respiratory failure with hypoxia: Code(s): J96.01 - Acute respiratory failure with hypoxia Status: Acute Assessment and Plan: Patient intubated now for airway protection and hypoxia Chest x-ray and shows bilateral infiltrates likely pulmonary edema. he received hemodialysis yesterday and 2 L fluid was removed 06/03 ABG reviewed Vent settings reviewed. weaning trial was performed this morning but patient failed due to increased work of breathing with use of some abdominal and accessory muscle, elevated respiratory rate, heart rate and blood pressure 06/09/2021 interval history: patient remains clinically stable and patient was being weaned off ventilator and hopefully extubate today, however patient was not able to tolerate and was placed back on vent, on 06/08 patient was successfully extubated and currently on NC, patient has a Dobbhoff started tube feeding, patient hemoglobin was slowly trending down had a EGD did not show any obvious source of bleeding, 06/08 and today patient had a melanotic stool hemoglobin was dropping and patient was given total of 4 units of pack RBC, patient on PPI and patient will be seen by GI and further recommendation to follow, patient was seen ratings analyst unlikely hemolytic anemia suspect most likely GI cause of anemia, patient with end-stage renal disease on hemodialysis will have a scheduled dialysis seen by stubber. 06/10/2021 interval history: patient remains clinically stable and patient was being weaned off ventilator and hopefully extubate today, however patient was not able to tolerate and was placed back on vent, on 06/08 patient was successfully extubated and currently on NC, patient has a Dobbhoff started tube feeding, however patient pulled out his Dobbhoff, patient hemoglobin was slowly trending down had a EGD did not show any obvious source of bleeding, on 06/08 and 06/09 patient had a melanotic stool hemoglobin was dropping and patient was given total of 4 units of pack RBC, patient on PPI and patient will be seen by GI and further recommendation to follow, patient was seen ratings analyst unlikely hemolytic anemia suspect most likely GI cause of anemia, patient with end-stage renal disease on hemodialysis will have a scheduled dialysis seen by stubber. Patient is out of ICU and and medical floor. (2) Multilobar lung infiltrate: Code(s): R91.8 - Other nonspecific abnormal finding of lung field Status: Acute Assessment and Plan: Suspect aspiration Patient has completed a course of antibiotics earlier this hospitalization continue Zosyn and repeat blood and sputum culture her pending (3) Pneumonia due to COVID-19 virus: Code(s): U07.1 - COVID-19; J12.82 - Pneumonia due to coronavirus disease 2019 Status: Acute Assessment and Plan: Patient was tested positive for COVID-19 He had finished a [address] course of dexamethasone CT findings did not suggest COVID pneumonia but more likely bacterial pneumonia No further treatment for COVID at this time (4) GI bleeding: Code(s): K92.2 - Gastrointestinal hemorrhage, unspecified Status: Acute Assessment and Plan: I suspect patient has GI bleed which has led to drop in his hemoglobin. Hemoglobin on 05/28 was 8.9 and 3.7 this morning. His BUN was elevated at 147 and he was on anticoagulation 2/4 EGD was performed and showed large Zenker's diverticulam, small hiatal hernia, gastritis with erythema and edematous changes, no ulcer seen continue to hold Eliquis for now. patient was started on prophylactic dose to Lovenox. hemoglobin has been stable and I will advance him to full dose today and monitor He has been transfused 4 units of PRBC and his hemoglobin has improved and is remained stable NPO for now and we have not been able to place an NG or OG multiple attempts. even GI was unable to place a gastric tube with EGD yesterda
--- NOTE | 2021-06-10 12:06 | PCSTNOTE ---
Please refer to the Bedside Swallow Evaluation in the EMR. Please note, silent aspiration cannot be ruled out at bedside. Recommend NPO as the patient has minimal swallow reflex and showed overt signs of aspiration with small sips. Re-order ST should patient's status improve. Thank you for this referral.
[2021-06-10 12:23] LABS: Glucose Point of Care 88 mg/dl (65-105)
[2021-06-10 12:24] LABS: Hematocrit 26.9 % (42.0-52.0); Hemoglobin 8.8 g/dL (14.0-18.0)
--- NOTE | 2021-06-10 13:49 | PC.NURSE ---
This patient, Jules Mitchell, was received from [facility] on 06/10/21 at 1349. Patient/family oriented to unit policies and routines
--- NOTE | 2021-06-10 13:50 | PC.NURSE ---
This patient, Jules Mitchell, was transferred to [[id number] ] on 06/10/21 at 1346. Personal belongings sent with patient. Report given to [Annamaria ]. Appropriate documentation sent with patient.
[2021-06-10 17:06] LABS: Glucose Point of Care 89 mg/dl (65-105)
[2021-06-10 19:44] LABS: Glucose Point of Care 83 mg/dl (65-105)
[2021-06-11] VITALS (22 sets, daily range): BP systolic 104–179; BP diastolic 41–88; PULSE 84–129; RESP 16–24; TEMP 35.9–37.1; O2SAT 96–100
[2021-06-11 04:18] LABS: Glucose Point of Care 75 mg/dl (65-105)
--- NOTE | 2021-06-11 07:28 | P.PNNP_ITS ---
Progress Note: A&P Assessment and Plan (1) End stage renal disease: Code(s): N18.6 - End stage renal disease Status: Chronic Assessment and Plan: * outpatient schedule of HD every Friday (prior to COVID positivity) * outpatient dialysis unit = [facility] * primary retail pricing coordinator = Dr. Blackman * Will do a treatment today. * Not much fluid needs to come off. He is NPO now. He used to have a Dobbhoff tube. * Do we need another Dobbhoff tube or PEG question (2) Acute respiratory failure with hypoxia: Code(s): J96.01 - Acute respiratory failure with hypoxia Status: Acute Assessment and Plan: * due to COVID-19, bacterial pneumonia, and possibly aspiration status post respiratory arrest while severely anemic. * off the ventilator now. Getting oxygen. * respiratory status seems stable. (3) Pneumonia due to COVID-19 virus: Code(s): U07.1 - COVID-19; J12.82 - Pneumonia due to coronavirus disease 2018 Status: Acute Assessment and Plan: * noted positive testing at [facility] * completed course of steroids * respiratory isolation timed out. (4) Hypotension: Code(s): I95.9 - Hypotension, unspecified Status: Acute Assessment and Plan: * the patient is off pressors. (5) Anemia: Code(s): D64.9 - Anemia, unspecified Status: Chronic Assessment and Plan: * partly related to ESRD but suspect acute worsening due to GI bleed * s/p EGD (06/01/21) with large Zenker's diverticulum, small hiatal hernia, gastritis but no ulcer seen * s/p PRBC transfusiuon * hb 8.8 yesterday. * He is getting Epogen. (6) Fecal impaction: Code(s): K56.41 - Fecal impaction Status: Acute Assessment and Plan: * resolved Subjective Date/time seen: 06/11/21 07:28 Interval history: Patient is lying in bed comfortably. Not very verbal. Does respond to questions with nodding yes and no occasionally. He will get another dialysis today per He cannot give much of a history or review of systems due to his medical c ondition Exam Narrative: General: Well-developed well-nourished both are Shayne male in no acute distress Heart: Regular rate and rhythm. No rub Lungs: mildly coarse and symmetric to auscultation. Abdomen: soft, nontender, nondistended, positive bowel sounds Extremities: no edema Skin: No rash Mouth: dry mucus membranes Objective Data Vital Signs Vital Signs: Vital Signs - 24 hr 06/10/21 08:00 06/10/21 10:00 06/10/21 13:53 Temperature 37.0 C 36.2 C L Pulse Rate 100 95 81 Respiratory Rate 16 18 Blood Pressure 160/82 H 145/63 H Pulse Oximetry 95 99 06/10/21 19:59 06/10/21 20:00 06/10/21 20:34 Temperature 36.4 C L Pulse Rate 96 96 Respiratory Rate 20 20 Blood Pressure 145/64 H Pulse Oximetry 100 96 96 06/10/21 23:48 06/11/21 04:00 Temperature 36.7 C 36.5 C Pulse Rate 87 93 Respiratory Rate 18 18 Blood Pressure 150/47 H 163/58 H Pulse Oximetry 100 100 Intake/Output Intake/Output: Intake & Output 06/08/21 06/09/21 06/10/21 06/11/21 23:59 23:59 23:59 23:59 Intake Total 1412.9 1447 300 100 Output Total 4
--- NOTE | 2021-06-11 07:28 | PM.PNNEP ---
Progress Note: A&P Assessment and Plan (1) End stage renal disease: Code(s): N18.6 - End stage renal disease Status: Chronic Assessment and Plan: outpatient schedule of HD every Friday (prior to COVID positivity) outpatient dialysis unit = [facility] primary marine machinist = Dr. Blackman Will do a treatment today. Not much fluid needs to come off. He is NPO now. He used to have a Dobbhoff tube. Do we need another Dobbhoff tube or PEG question (2) Acute respiratory failure with hypoxia: Code(s): J96.01 - Acute respiratory failure with hypoxia Status: Acute Assessment and Plan: due to COVID-19, bacterial pneumonia, and possibly aspiration status post respiratory arrest while severely anemic. off the ventilator now. Getting oxygen. respiratory status seems stable. (3) Pneumonia due to COVID-19 virus: Code(s): U07.1 - COVID-19; J12.82 - Pneumonia due to coronavirus disease 2018 Status: Acute Assessment and Plan: noted positive testing at [place] [facility] completed course of steroids respiratory isolation timed out. (4) Hypotension: Code(s): I95.9 - Hypotension, unspecified Status: Acute Assessment and Plan: the patient is off pressors. (5) Anemia: Code(s): D64.9 - Anemia, unspecified Status: Chronic Assessment and Plan: partly related to ESRD but suspect acute worsening due to GI bleed s/p EGD (06/01/21) with large Zenker's diverticulum, small hiatal hernia, gastritis but no ulcer seen s/p PRBC transfusiuon hb 8.8 yesterday. He is getting Epogen. (6) Fecal impaction: Code(s): K56.41 - Fecal impaction Status: Acute Assessment and Plan: resolved Subjective Date/time seen: 06/11/21 07:28 Interval history: Patient is lying in bed comfortably. Not very verbal. Does respond to questions with nodding yes and no occasionally. He will get another dialysis today per He cannot give much of a history or review of systems due to his medical condition Exam Narrative: General: Well-developed well-nourished both are Shayne male in no acute distress Heart: Regular rate and rhythm. No rub Lungs: mildly coarse and symmetric to auscultation. Abdomen: soft, nontender, nondistended, positive bowel sounds Extremities: no edema Skin: No rash Mouth: dry mucus membranes Objective Data Vital Signs Vital Signs: Vital Signs - 24 hr 06/10/21 08:00 06/10/21 10:00 06/10/21 13:53 Temperature 37.0 C 36.2 C L Pulse Rate 100 95 81 Respiratory Rate 16 18 Blood Pressure 160/82 H 145/63 H Pulse Oximetry 95 99 06/10/21 19:59 06/10/21 20:00 06/10/21 20:34 Temperature 36.4 C L Pulse Rate 96 96 Respiratory Rate 20 20 Blood Pressure 145/64 H Pulse Oximetry 100 96 96 06/10/21 23:48 06/11/21 04:00 Temperature 36.7 C 36.5 C Pulse Rate 87 93 Respiratory Rate 18 18 Blood Pressure 150/47 H 163/58 H Pulse Oximetry 100 100 Intake/Output Intake/Output: Intake & Output 06/08/21 06/09/21 06/10/21 06/11/21 23:59 23:59 23:59 23:59 Intake Total 1412.9 1447 300 100 Output Total 45 120 200 Balance 1367.9 1327 100 100 Meds/Results Medications: Active Medications Generic Name Dose Route Start Last Admin Trade Name Freq PRN Reason Stop Dose Admin Acetaminophen 650 mg 05/25/21 10:22 05/25/21 12:11 Acetaminophen 325 Mg Tablet PO 650 mg Q6H PRN Administration Mild Pain (1-3) or Fever Albuterol 2 puff 05/19/21 02:00 06/06/21 08:30 Albuterol Sulfate (*Sp) Aerosol 1 Puff INHALATION Not Given Q6HRT [facility] Allopurinol 100 mg 05/19/21 21:00 06/07/21 21:37 Allopurinol 100 Mg Tablet PO 100 mg HS LOKESH Administration Atorvastatin Calcium 20 mg 05/19/21 21:00 06/07/21 21:38 Atorvastatin 20 Mg Tablet PO 20 mg HS LOKESH Administration Dextrose 12.5 gm 05/31/21 14:02 Dextrose 50%
[2021-06-11] MEDS: DEXTROSE 50% 25 GM/50 ML SYRINGE IV PUSH (07:33)
[2021-06-11] MEDS: DEXTROSE 5% 1,000 ML 1,000 ML 100 ML IVPB (07:34)
[2021-06-11] MEDS: PANTOPRAZOLE SODIUM IV 40 MG VIAL IV PUSH ×2 (07:37→20:03)
[2021-06-11] MEDS: levETIRAcetam 500MG/NACL 100ML 500 MG/100 ML BAG 400 MG IVPB ×2 (09:01→20:01)
--- NOTE | 2021-06-11 12:05 | PC.NURSE ---
Pt pulled out duhoff after placement this afternoon, duhoff reinserted, KUB ordered per MD Morfin. MD Morfin order neb tx too, pt currently gasping for air. Md Morfin to assess at bedside. Soft wrist restraints reordered for pt.
[2021-06-11] MEDS: IPRATROPIUM BR 0.02% INH SOLN 0.5 MG/2.5 ML VIAL (12:15)
[2021-06-11] MEDS: ALBUTEROL SULFATE NEB 2.5 MG/3 ML INH (12:15)
[2021-06-11 12:32] LABS: Glucose Point of Care 167 mg/dl (65-105)
--- NOTE | 2021-06-11 12:42 | WPDGIPROGNO ---
Progress Note: A&P Assessment and Plan (1) GI bleeding: Code(s): K92.2 - Gastrointestinal hemorrhage, unspecified Status: Acute Assessment and Plan: he did have melanotic stools over the weekend but it appears that this has stopped and that this morning's entry was incorrect. I will make him NPO after midnight in case he does drop his counts and or have melena again I am assuming his bleeding is upper gastrointestinal. He will be receiving an enema to open fully unplug his rectum. We will need to wait at least 24 hours to do endoscopy because of his Eliquis. Hopefully we can do this tomorrow. Since he was transfused his hemoglobin has increased to 12 g. He received 4 units total (2) End stage renal disease: Code(s): N18.6 - End stage renal disease Status: Chronic Assessment and Plan: I just spoke to nurse states that he is becoming short of breath and obviously fluid overloaded. He is due for dialysis he is on chronic hemodialysis. It seemed he became very weak with dialysis the day that he was admitted here and had recurrence of those symptoms today. Although today it seems to be due to the fact that he became markedly anemic. I do not think dialysis could cause that much anemia. Dr. Fuentes has been on his case. (3) Anemia: Code(s): D64.9 - Anemia, unspecified Status: Chronic Assessment and Plan: certainly much of his anemia is chronic . He did drop his blood counts when he had bloody stools Friday while on anticoagulant. When I saw him 2 weeks ago his counts dropped precipitously after dialysis but there was never any sign of bleeding. He had brown stools and EGD was negative except for gastritis but no focal bleeding point (4) Acute encephalopathy: Code(s): G93.40 - Encephalopathy, unspecified Status: Acute Assessment and Plan: he remains withdrawn and difficult to assess because he does not respond to questioning (5) Fecal impaction: Code(s): K56.41 - Fecal impaction Status: Acute Assessment and Plan: this has resolved. He was given an enema with results he passed a large amount of brown stool on May 31. He did however have bloody stools this week and (6) Chronic renal failure: Code(s): N18.9 - Chronic kidney disease, unspecified Status: Acute Assessment and Plan: he continues with dialysis 3 times a week (7) Hypotension: Code(s): I95.9 - Hypotension, unspecified Status: Acute Assessment and Plan: 2/ He did not require pressors. His blood pressure has responded to transfusion although it is still a little soft, around 88 systolic when I examined him. Normally he is hypertensive 06/11 Pressure is stable today (8) Pneumonia due to COVID-19 virus: Code(s): U07.1 - COVID-19; J12.82 - Pneumonia due to coronavirus disease 2019 Status: Acute Assessment and Plan: apparently this has resolved and he is no longer on isolation. Subjective Date/time seen: 06/11/21 12:42 The patient had a dark bloody stools Friday evening and Friday. Asacol Friday about that and he was getting transfused. We decide to follow his blood counts. He had had an EGD about 2 weeks ago that revealed only mild gastritis. It was at that time that we try to place an NG tube but was not successful. I had noted a Zenkers diverticulum which made it impossible for me to pass the NG tube. Subsequently radiology was able to place a Dobbhoff but unfortunately he has pulled out. His counts have been stable but nursing notes from this morning indicate that he is having bloody stools. I discussed this with his nurse who states that that was probably put in inadvertently as a carry over from the weekend notes, as she has not observed any bloody stools yet today. Today patient is taciturn and does not respond to my questions. He is lying comfortably in bed. He did notice small amount of blood
[2021-06-11] MEDS: FUROSEMIDE INJ 100 MG/10 ML VIAL 80 MG IV PUSH (12:47)
--- NOTE | 2021-06-11 13:59 | PC.NURSE ---
Pt resting comfortably in bed, lasix given, breathing improved. Awaiting Duhoff replacement, and dialysis today.
--- NOTE | 2021-06-11 15:30 | PM.IMPN ---
Progress Note: A&P Assessment and Plan (1) Acute respiratory failure with hypoxia: Code(s): J96.01 - Acute respiratory failure with hypoxia Status: Acute Assessment and Plan: Patient intubated now for airway protection and hypoxia Chest x-ray and shows bilateral infiltrates likely pulmonary edema. he received hemodialysis yesterday and 2 L fluid was removed 06/03 ABG reviewed Vent settings reviewed. weaning trial was performed this morning but patient failed due to increased work of breathing with use of some abdominal and accessory muscle, elevated respiratory rate, heart rate and blood pressure 06/09/2021 interval history: patient remains clinically stable and patient was being weaned off ventilator and hopefully extubate today, however patient was not able to tolerate and was placed back on vent, on 06/08 patient was successfully extubated and currently on NC, patient has a Dobbhoff started tube feeding, patient hemoglobin was slowly trending down had a EGD did not show any obvious source of bleeding, 06/08 and today patient had a melanotic stool hemoglobin was dropping and patient was given total of 4 units of pack RBC, patient on PPI and patient will be seen by GI and further recommendation to follow, 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 06/10/2021 interval history: patient remains clinically stable and patient was being weaned off ventilator and hopefully extubate today, however patient was not able to tolerate and was placed back on vent, on 06/08 patient was successfully extubated and currently on NC, patient has a Dobbhoff started tube feeding, however patient pulled out his Dobbhoff, patient hemoglobin was slowly trending down had a EGD did not show any obvious source of bleeding, on 06/08 and 06/09 patient had a melanotic stool hemoglobin was dropping and patient was given total of 4 units of pack RBC, patient on PPI and patient will be seen by GI and further recommendation to follow, 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 Patient is out of ICU and and medical floor. 06/11/2021 interval history: patient remains clinically stable and patient was being weaned off ventilator and hopefully extubate today, however patient was not able to tolerate and was placed back on vent, on 06/08 patient was successfully extubated and currently on NC, patient has a Dobbhoff started tube feeding, however patient pulled out his Dobbhoff, patient hemoglobin was slowly trending down had a EGD did not show any obvious source of bleeding, on 06/08 and 06/09 patient had a melanotic stool hemoglobin was dropping and patient was given total of 4 units of pack RBC, patient on PPI and patient will be seen by GI and further recommendation to follow, 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 Patient is out of ICU and and medical floor. patient had pulled out his Dobbhoff, IR had placed Dobbhoff today and again patient pulled it out an IR again placed it, will resume tube feed, she will have dialysis today patient remains clinically stable, his hemoglobin remains stable will discuss with Nephrology may discharge patient home tomorrow. (2) Multilobar lung infiltrate: Code(s): R91.8 - Other nonspecific abnormal finding of lung field Status: Acute Assessment and Plan: Suspect aspiration Patient has completed a course of antibiotics earlier this hospitalization continue Zosyn and repeat blood and sputum culture her pending (3) Pneumonia due to COVID-
--- NOTE | 2021-06-11 15:31 | PC.NURSE ---
Fluoroscopy guided nasoenteric tube placement with tip in the stomach. PT at dialysis now, will restart feeding.
[2021-06-11] MEDS: SODIUM CHLORIDE 0.9% IV 1,000 ML 999 ML IV CONT (15:54)
[2021-06-11] MEDS: EPOETIN ALFA-EPBX 20,000 UNITS/ML VIAL 20000 UNITS IV PUSH (15:56)
[2021-06-11 17:52] LABS: Glucose Point of Care 106 mg/dl (65-105)
--- NOTE | 2021-06-11 18:05 | PC.NURSE ---
Dialysis nurse reported pt pulling on duhoff x2, duhoff out about 4-5 cm, reported to [facility] stat ordered. Dialysis removed 1 L of fluid.
--- NOTE | 2021-06-11 18:55 | PC.NURSE ---
reported low urine output to Md Morfin 100 ml out, and had dialysis today 1 L removed during tx.
[2021-06-11 19:32] LABS: Hematocrit 34.7 % (42.0-52.0); Hemoglobin 11.4 g/dL (14.0-18.0); Mean Corpuscular HGB Conc 32.9 g/dl (32-36); Mean Corpuscular Hemoglobin 32.2 pg (26-34); Mean Platelet Volume 9.3 fl (7.4-10.4); Platelet Count Result 162 k/mm3 (150-375); Red Blood Count 3.54 M/mm3 (4.6-6.20); Red Cell Distribution Width 19.9 % (11.5-14.5); White Blood Count 13.8 K/mm3 (4.5-10.0)
[2021-06-11 19:48] LABS: Albumin Level 3.7 g/dL (3.5-5.1); Anion Gap 11 mmol/L (8-16); Blood Urea Nitrogen 27 mg/dL (9-20); Calcium 8.2 mg/dL (8.4-10.2); Carbon Dioxide 29 mmol/L (22-30); Chloride 101 mmol/L (98-107); Estimated CRCL calculation 15 ml/min; Estimated Glomerular Filt Rate 26; Glucose 125 mg/dL (65-110); Phosphorus 3.5 mg/dL (2.5-4.5); Sodium 141 mmol/L (137-145)
[2021-06-11 21:02] LABS: Glucose Point of Care 127 mg/dl (65-105)
[2021-06-12] VITALS (9 sets, daily range): BP systolic 80–152; BP diastolic 31–88; PULSE 95–102; RESP 15–22; TEMP 36.2–37.2; O2SAT 95–100
[2021-06-12 01:00] LABS: Glucose Point of Care 106 mg/dl (65-105)
[2021-06-12 05:13] LABS: Glucose Point of Care 92 mg/dl (65-105)
[2021-06-12 07:04] LABS: Hematocrit 32.3 % (42.0-52.0); Hemoglobin 10.5 g/dL (14.0-18.0); Mean Corpuscular HGB Conc 32.5 g/dl (32-36); Mean Corpuscular Hemoglobin 31.1 pg (26-34); Mean Corpuscular Volume 95.6 fl (80-100); Mean Platelet Volume 10.2 fl (7.4-10.4); Platelet Count Result 211 k/mm3 (150-375); Red Blood Count 3.38 M/mm3 (4.6-6.20); Red Cell Distribution Width 20.5 % (11.5-14.5); White Blood Count 8.6 K/mm3 (4.5-10.0)
[2021-06-12 07:15] LABS: Albumin Level 3.7 g/dL (3.5-5.1); Anion Gap 10 mmol/L (8-16); Blood Urea Nitrogen 36 mg/dL (9-20); Carbon Dioxide 30 mmol/L (22-30); Chloride 100 mmol/L (98-107); Estimated CRCL calculation 10 ml/min; Estimated Glomerular Filt Rate 16; Glucose 103 mg/dL (65-110); Phosphorus 4.7 mg/dL (2.5-4.5); Potassium 4.8 mmol/L (3.4-5.0); Sodium 140 mmol/L (137-145)
--- NOTE | 2021-06-12 07:32 | P.PNNP_ITS ---
Progress Note: A&P Assessment and Plan (1) End stage renal disease: Code(s): N18.6 - End stage renal disease Status: Chronic Assessment and Plan: * outpatient schedule of HD every Friday (prior to COVID positivity) * outpatient dialysis unit = [facility] * primary law reporter = Dr. Blackman * Will do a treatment today. * Not much fluid needs to come off. He is NPO now. Dobbhoff tube was placed yesterday but came out. Another Dobbhoff tube is going to be placed today. (2) Acute respiratory failure with hypoxia: Code(s): J96.01 - Acute respiratory failure with hypoxia Status: Acute Assessment and Plan: * due to COVID-19, bacterial pneumonia, and possibly aspiration status post respiratory arrest while severely anemic. * off the ventilator now. Getting oxygen. * respiratory status seems stable. (3) Pneumonia due to COVID-19 virus: Code(s): U07.1 - COVID-19; J12.82 - Pneumonia due to coronavirus disease 2019 Status: Acute Assessment and Plan: * noted positive testing at [facility] * completed course of steroids * respiratory isolation timed out. (4) Hypotension: Code(s): I95.9 - Hypotension, unspecified Status: Acute Assessment and Plan: * the patient is off pressors. (5) Anemia: Code(s): D64.9 - Anemia, unspecified Status: Chronic Assessment and Plan: * partly related to ESRD but suspect acute worsening due to GI bleed * s/p EGD (06/01/21) with large Zenker's diverticulum, small hiatal hernia, gastritis but no ulcer seen * s/p PRBC transfusiuon hb 10.5 yesterday. * He is getting Epogen. (6) Fecal impaction: Code(s): K56.41 - Fecal impaction Status: Acute Assessment and Plan: * resolved Subjective Date/time seen: 06/12/21 07:32 Interval history: Patient is lying in bed comfortably. Not very verbal. Answers yes no questions but tires easily. He had dialysis yesterday and did well. Exam Narrative: General: Well-developed well-nourished both are Shayne male in no acute distress Heart: Regular rate and rhythm. No rub Lungs: mildly coarse and symmetric to auscultation. Abdomen: soft, nontender, nondistended, positive bowel sounds Extremities: no edema Skin: No rash Mouth: dry mucus membranes Objective Data Vital Signs Vital Signs: Vital Signs - 24 hr 06/11/21 08:00 06/11/21 14:00 06/11/21 14:35 Temperature 35.9 C L 36.6 C Pulse Rate 93 104 H 129 H Respiratory Rate 18 24 H 18 Blood Pressure 145/75 H 179/88 H Pulse Oximetry 100 99 06/11/21 14:43 06/11/21 15:00 06/11/21 15:15 Temperature Pulse Rate 120 H 106 H 126 H Respiratory Rate Blood Pressure 157/86 H 159/84 H 170/69 H Pulse Oximetry 06/11/21 15:30 06/11/21 15:45 06/11/21 16:00 Temperature Pulse Rate 117 H 118 H 117 H Respiratory Rate Blood Pressure 139/64 135/69 110/66 Pulse Oximetry 06/11/21 16:15 06/11/21 16:30 06/11/21 16:45 Temperature Pulse Rate 115 H 114 H 111 H Respiratory Rate Blood Pressure 125/65 104/63 123/63 Pulse Oximetry 06/11/21 17:00
--- NOTE | 2021-06-12 07:32 | PM.PNNEP ---
Progress Note: A&P Assessment and Plan (1) End stage renal disease: Code(s): N18.6 - End stage renal disease Status: Chronic Assessment and Plan: outpatient schedule of HD every Friday (prior to COVID positivity) outpatient dialysis unit = [facility] primary senior product engineer = Dr. Blackman Will do a treatment today. Not much fluid needs to come off. He is NPO now. Dobbhoff tube was placed yesterday but came out. Another Dobbhoff tube is going to be placed today. (2) Acute respiratory failure with hypoxia: Code(s): J96.01 - Acute respiratory failure with hypoxia Status: Acute Assessment and Plan: due to COVID-19, bacterial pneumonia, and possibly aspiration status post respiratory arrest while severely anemic. off the ventilator now. Getting oxygen. respiratory status seems stable. (3) Pneumonia due to COVID-19 virus: Code(s): U07.1 - COVID-19; J12.82 - Pneumonia due to coronavirus disease 2019 Status: Acute Assessment and Plan: noted positive testing at [facility] completed course of steroids respiratory isolation timed out. (4) Hypotension: Code(s): I95.9 - Hypotension, unspecified Status: Acute Assessment and Plan: the patient is off pressors. (5) Anemia: Code(s): D64.9 - Anemia, unspecified Status: Chronic Assessment and Plan: partly related to ESRD but suspect acute worsening due to GI bleed s/p EGD (06/01/21) with large Zenker's diverticulum, small hiatal hernia, gastritis but no ulcer seen s/p PRBC transfusiuon hb 10.5 yesterday. He is getting Epogen. (6) Fecal impaction: Code(s): K56.41 - Fecal impaction Status: Acute Assessment and Plan: resolved Subjective Date/time seen: 06/12/21 07:32 Interval history: Patient is lying in bed comfortably. Not very verbal. Answers yes no questions but tires easily. He had dialysis yesterday and did well. Exam Narrative: General: Well-developed well-nourished both are Shayne male in no acute distress Heart: Regular rate and rhythm. No rub Lungs: mildly coarse and symmetric to auscultation. Abdomen: soft, nontender, nondistended, positive bowel sounds Extremities: no edema Skin: No rash Mouth: dry mucus membranes Objective Data Vital Signs Vital Signs: Vital Signs - 24 hr 06/11/21 08:00 06/11/21 14:00 06/11/21 14:35 Temperature 35.9 C L 36.6 C Pulse Rate 93 104 H 129 H Respiratory Rate 18 24 H 18 Blood Pressure 145/75 H 179/88 H Pulse Oximetry 100 99 06/11/21 14:43 06/11/21 15:00 06/11/21 15:15 Temperature Pulse Rate 120 H 106 H 126 H Respiratory Rate Blood Pressure 157/86 H 159/84 H 170/69 H Pulse Oximetry 06/11/21 15:30 06/11/21 15:45 06/11/21 16:00 Temperature Pulse Rate 117 H 118 H 117 H Respiratory Rate Blood Pressure 139/64 135/69 110/66 Pulse Oximetry 06/11/21 16:15 06/11/21 16:30 06/11/21 16:45 Temperature Pulse Rate 115 H 114 H 111 H Respiratory Rate Blood Pressure 125/65 104/63 123/63 Pulse Oximetry 06/11/21 17:00 06/11/21 17:15 06/11/21 17:30 Temperature Pulse Rate 109 H 104 H 84 Respiratory Rate Blood Pressure 119/66 119/61 117/41 L Pulse Oximetry 06/11/21 17:44 06/11/21 17:55 06/11/21 19:58 Temperature 36.2 C L 36.7 C Pulse Rate 111 H 114 H 117 H Respiratory Rate 16 20 Blood Pressure 122/57 L 136/74 146/65 H Pulse Oximetry 99 06/11/21 20:00 06/11/21 20:59 06/11/21 23:32 Temperature 37.1 C Pulse Rate 117 H 104 H Respiratory Rate 20 20 Blood Pressure 118/53 L Pulse Oximetry 96 96 99 06/12/21 04:00 Temperature 37.2 C Pulse Rate 102 H Respiratory Rate 20 Blood Pressure 146/63 H Pulse Oximetry 98 Intake/Output Intake/Output: Intake & Output 06/09/21 06/10/21 06/11/21 06/12/21 23:59 23:59 23:59 23:59 Intake Total 1447 300 250 0 Output
--- NOTE | 2021-06-12 07:34 | PC.NURSE ---
Talked to MD Morfin, pt continues to pull out Duhoff, new order for PICC line for TNP, and GI consulted for g-tube placement. Will still need family consent for g-tube at this time.
[2021-06-12 07:49] LABS: Glucose Point of Care 91 mg/dl (65-105)
--- NOTE | 2021-06-12 07:50 | PC.NURSE ---
PICC line insertion d/c r/t renal function. Talk to MD Fuentes, and MD Morfin, consulting gi for peg tube. Starting pt on dextose at 30ml/hr.
--- NOTE | 2021-06-12 08:02 | PC.NURSE ---
consent received from [place] for endoscopy and peg-tube placement.
[2021-06-12] MEDS: levETIRAcetam 500MG/NACL 100ML 500 MG/100 ML BAG 400 MG IVPB ×2 (08:18→20:08)
[2021-06-12] MEDS: PANTOPRAZOLE SODIUM IV 40 MG VIAL IV PUSH ×2 (08:18→20:09)
--- NOTE | 2021-06-12 09:19 | PC.NURSE ---
restraints off pt pulled out eve rea at bedside, peg tube placement scheduled for this afternoon.
--- NOTE | 2021-06-12 10:55 | PC.NURSE ---
pt picked up by gi lab for peg tube placement and endoscopy.
--- NOTE | 2021-06-12 10:56 | PCNFU ---
Nutrition Follow-Up Complete: Inadequate oral intake related to ARF w/hypoxia and COVID as evidenced by reported average intake of 6% Goal: Pt to meet 75% of estimated nutritional needs Patient is progressing towards goal. We will continue current goal. Pt current nutrition is NPO. Last recorded weight is 54.1 kg, down from 57.2 kg on admit. Bowel Motility:+BM reported 06/12 Labs Reviewed:GFR 16, BUN 36, Cr 4.4, PO4 4.7 Meds Noted:Zosyn, Keppra,LR, Protonix, Retacrit, Folic Acid, Dextrose. Skin: WNL Additional Notes: Spoke with nursing today. Patient has pulled Dobbhoff tube. Plans for PEG placement at noon today. Tube feeding recommendations Nepro at 20 ml/hr increased by 10 ml q 4 hours to goal rate of 40 ml/hr, providing 1584 kcals/72 gms protein/640 ml water. Free water flush 30 ml q 4 hours. Will monitor labs, medication, wt, and tube feeding tolerance every Friday and Friday.
[2021-06-12] MEDS: SODIUM CHLORIDE 0.9% IV 500 ML 10 ML IV CONT (11:04)
[2021-06-12 11:09] LABS: Glucose Point of Care 106 mg/dl (65-105)
--- NOTE | 2021-06-12 11:21 | WPDANESEPPF ---
Anes - Initial Pre Proc Eval Procedure: Operation Date: 06/01/21 14:30 Proposed Procedures p Esophagogastroduodenoscopy - Brooks Vilchis MD Operation Date: 06/12/21 12:30 Proposed Procedures p Percutaneous Endoscopic Gastrostomy - Brooks Vilchis MD Date/Time: 06/12/21 11:21 Surgeon: Lew Estrada MD Pre Op Diagnosis: acute respiratory failure with hypoxia, COVID-19, Patient Data Age: 75 Gender: M Height: 1.57 m Weight: 54.1 kg Last Vital Signs Temp 98.6 F 06/12/21 11:00 Pulse 100 06/12/21 11:00 Resp 18 06/12/21 11:00 BP 152/67 H 06/12/21 11:00 Pulse Ox 100 06/12/21 11:00 Allergies Allergy/AdvReac Type Severity Reaction Status Date / Time No Known Allergies Allergy Verified 06/12/21 10:56 Home Medications Medication Instructions Recorded Confirmed Type hydrocodone-acetaminophen 1 tablet PO Q6H PRN 05/18/21 05/19/21 History albuterol sulfate [Proventil HFA] 2 puff INHALATION Q6HRT #8 g 05/30/21 Rx lisinopril 10 mg PO DAILY #30 tablet 05/30/21 Rx Eliquis 2.5 mg FEEDING TUBE BID #0 tablet 06/13/21 05/19/21 Rx acetaminophen [Mapap 650 mg FEEDING TUBE Q6H PRN tablet 06/13/21 Rx (acetaminophen)] albuterol sulfate 5 mg INHALATION Q4HRT PRN #30 vial 06/13/21 Rx allopurinol 100 mg FEEDING TUBE HS #0 tablet 06/13/21 05/19/21 Rx atorvastatin 20 mg FEEDING TUBE HS #0 tablet 06/13/21 05/19/21 Rx diltiazem HCl 30 mg FEEDING TUBE Q6HR tablet 06/13/21 Rx folic acid 1 mg FEEDING TUBE DAILY #30 tablet 06/13/21 Rx furosemide 80 mg FEEDING TUBE BID #0 tablet 06/13/21 05/19/21 Rx levetiracetam [Keppra] 500 mg PO BID #60 tablet 06/13/21 Rx polyethylene glycol 3350 [Miralax] 17 g FEEDING TUBE QAM #30 ea 06/13/21 Rx ropinirole 0.5 mg FEEDING TUBE HS #0 tablet 06/13/21 05/19/21 Rx sevelamer carbonate 800 mg FEEDING TUBE TID #0 tablet 06/13/21 05/19/21 Rx tamsulosin 0.4 mg PO HS #0 cap 06/13/21 05/19/21 Rx Laboratory Tests 06/08/21 06/11/21 06/11/21 14:40 12:30 17:50 WBC RBC Hgb Hct MCV MCH MCHC RDW Plt Count MPV Sodium Potassium Chloride Carbon Dioxide Anion Gap BUN Creatinine Estim Creat Clear Calc Estimated GFR Glucose POC Capillary Glucose 167 mg/dl H mg/dl 106 mg/dl H mg/dl (65-105) (65-105) Calcium Phosphorus Albumin Enhanced Crossmatch See Detail 06/11/21 06/11/21 06/11/21 19:22 19:22 21:00 WBC 13.8 K/mm3 H K/mm3 (4.5-10.0) RBC 3.54 M/mm3 L M/mm3 (4.6-6.20) Hgb 11.4 g/dL L g/dL (14.0-18.0) Hct 34.7 % L % (42.0-52.0) MCV 98.0 fl fl (80-100) MCH 32.2 pg pg (26-34) MCHC 32.9 g/dl g/dl (32-36) RDW 19.9 % H % (11.5-14.5) Plt Count 162 k/mm3 k/mm3 (150-375) MPV 9.3 fl fl (7.4-10.4) Sodium 141 mmol/L mmol/L (137-145) Potassium 4.0 mmol/L mmol/L (3.4-5.0) Chloride 101 mmol/L mmol/L (98-107) Carbon Dioxide 29 mmol/L mmol/L (22-30) Anion Gap 11 mmol/L mmol/L (8-16) BUN 27 mg/dL H D mg/dL (9-20) Creatinine 2.90 mg/dL H D mg/dL (0.7-1.3) Estim Creat Clear Calc 15 ml/min ml/min Estimated GFR 26 L (59 - ) Glucose 125 mg/dL H mg/dL (65-110) POC Capillary Glucose 127 mg/dl H mg/dl (65-105) Calcium 8.2 mg/dL L mg/dL (8.4-10.2) Phosphorus 3.5 mg/dL mg/dL (2.5-4.5) Albumin 3.7 g/dL g/dL (3.5-5.1) Enhanced Crossmatch 06/12/21 06/12/21 06/12/21 00:57 05:05 06:02 WBC 8.6 K/mm3 K/mm3 (4.5-10.0) RBC 3.38 M/mm3 L M/mm3 (4.6-6.20) Hgb 10.5 g/dL L g/dL (1
[2021-06-12] MEDS: DEXTROSE 5% 1,000 ML 1,000 ML 30 ML IVPB (11:30)
--- NOTE | 2021-06-12 12:22 | SUR.PREOP ---
No additional orders for PEG tube insertion per Dr Vilchis.
--- NOTE | 2021-06-12 14:32 | PC.NURSE ---
Educated son at bedside about peg tube. Nutrient consult order for further education.
--- NOTE | 2021-06-12 14:34 | PM.IMPN ---
Progress Note: A&P Assessment and Plan (1) Acute respiratory failure with hypoxia: Code(s): J96.01 - Acute respiratory failure with hypoxia Status: Acute Assessment and Plan: Patient intubated now for airway protection and hypoxia Chest x-ray and shows bilateral infiltrates likely pulmonary edema. he received hemodialysis yesterday and 2 L fluid was removed 06/03 ABG reviewed Vent settings reviewed. weaning trial was performed this morning but patient failed due to increased work of breathing with use of some abdominal and accessory muscle, elevated respiratory rate, heart rate and blood pressure 06/09/2021 interval history: patient remains clinically stable and patient was being weaned off ventilator and hopefully extubate today, however patient was not able to tolerate and was placed back on vent, on 06/08 patient was successfully extubated and currently on NC, patient has a Dobbhoff started tube feeding, patient hemoglobin was slowly trending down had a EGD did not show any obvious source of bleeding, 06/08 and today patient had a melanotic stool hemoglobin was dropping and patient was given total of 4 units of pack RBC, patient on PPI and patient will be seen by GI and further recommendation to follow, 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 06/10/2021 interval history: patient remains clinically stable and patient was being weaned off ventilator and hopefully extubate today, however patient was not able to tolerate and was placed back on vent, on 06/08 patient was successfully extubated and currently on NC, patient has a Dobbhoff started tube feeding, however patient pulled out his Dobbhoff, patient hemoglobin was slowly trending down had a EGD did not show any obvious source of bleeding, on 06/08 and 06/09 patient had a melanotic stool hemoglobin was dropping and patient was given total of 4 units of pack RBC, patient on PPI and patient will be seen by GI and further recommendation to follow, 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 Patient is out of ICU and and medical floor. 06/11/2021 interval history: patient remains clinically stable and patient was being weaned off ventilator and hopefully extubate today, however patient was not able to tolerate and was placed back on vent, on 06/08 patient was successfully extubated and currently on NC, patient has a Dobbhoff started tube feeding, however patient pulled out his Dobbhoff, patient hemoglobin was slowly trending down had a EGD did not show any obvious source of bleeding, on 06/08 and 06/09 patient had a melanotic stool hemoglobin was dropping and patient was given total of 4 units of pack RBC, patient on PPI and patient will be seen by GI and further recommendation to follow, 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 Patient is out of ICU and and medical floor. patient had pulled out his Dobbhoff, IR had placed Dobbhoff today and again patient pulled it out an IR again placed it, will resume tube feed, she will have dialysis today patient remains clinically stable, his hemoglobin remains stable will discuss with Nephrology may discharge patient home tomorrow. 06/12/2021 interval history: patient remains clinically stable and patient was being weaned off ventilator and hopefully extubate today, however patient was not able to tolerate and was placed back on vent, on 06/08 patient was successfully extubated and currently on NC, patient has a Dobbhoff started tube feeding, however patient pulled out
[2021-06-12 15:57] LABS: Glucose Point of Care 106 mg/dl (65-105)
[2021-06-12 17:30] LABS: Glucose Point of Care 109 mg/dl (65-105)
[2021-06-12] MEDS: ATORVASTATIN 20 MG TABLET PO (20:08)
[2021-06-13] VITALS (25 sets, daily range): BP systolic 87–159; BP diastolic 35–69; PULSE 68–102; RESP 16–20; TEMP 35.4–37.1; O2SAT 93–100; BMI 22.4
[2021-06-13 00:05] LABS: Glucose Point of Care 131 mg/dl (65-105)
[2021-06-13 05:12] LABS: Glucose Point of Care 155 mg/dl (65-105)
[2021-06-13 06:47] LABS: Hematocrit 33.5 % (42.0-52.0); Hemoglobin 10.7 g/dL (14.0-18.0); Mean Corpuscular HGB Conc 31.9 g/dl (32-36); Mean Corpuscular Hemoglobin 31.3 pg (26-34); Platelet Count Result 215 k/mm3 (150-375); Red Blood Count 3.42 M/mm3 (4.6-6.20); Red Cell Distribution Width 20.5 % (11.5-14.5); White Blood Count 8.6 K/mm3 (4.5-10.0)
[2021-06-13 07:01] LABS: Albumin Level 3.5 g/dL (3.5-5.1); Anion Gap 12 mmol/L (8-16); Blood Urea Nitrogen 51 mg/dL (9-20); Calcium 8.1 mg/dL (8.4-10.2); Carbon Dioxide 28 mmol/L (22-30); Chloride 99 mmol/L (98-107); Estimated CRCL calculation 7 ml/min; Estimated Glomerular Filt Rate 10; Glucose 164 mg/dL (65-110); Phosphorus 4.4 mg/dL (2.5-4.5); Potassium 3.6 mmol/L (3.4-5.0); Sodium 139 mmol/L (137-145)
--- NOTE | 2021-06-13 10:45 | PCNFU ---
Nutrition Follow-Up Complete: Inadequate oral intake related to ARF w/hypoxia and COVID as evidenced by reported average intake of 6% Goal: Pt to meet 75% of estimated nutritional needs Patient is progressing towards goal. Pt current nutrition is NPO. Last recorded weight is 55.5 kg, down from 57.2 kg on admit. Bowel Motility: +BM reported 06/12 Labs Reviewed:PO4 4.7, GFR 16, BUN 36, Cr 4.4,Hct 32.3, Hgb 10.5 Meds Noted:Folic Acid, Retacrit, Keppra, Protonix, Zosyn Skin: WNL Additional Notes: Physician consult for tube feeding recommendations. Recommend: Nepro 300 ml 3 x daily, providing 1620 kcals/72 gm protein/654 ml water. Free water flush 100 ml after feedings. Will monitor labs, medication, wt, and reported intake every Friday and Friday.
[2021-06-13] MEDS: SODIUM CHLORIDE 0.9% IV 1,000 ML 999 ML IV CONT (10:57)
[2021-06-13] MEDS: EPOETIN ALFA-EPBX 20,000 UNITS/ML VIAL 20000 UNITS IV PUSH (10:58)
--- NOTE | 2021-06-13 11:11 | WPDANESPN ---
Anes - Prog Note Post-Op Date/Time: 06/13/21 11:11 Cardiovascular status: normal Respiratory status: normal Airway patency: baseline Mental status: baseline Post-Op hydration status: normal Vital Signs: Last Vital Signs Temp 36.8 C 06/13/21 08:35 Pulse 98 06/13/21 11:00 Resp 16 06/13/21 08:35 BP 121/47 L 06/13/21 11:00 Pulse Ox 95 06/13/21 09:52 Pain Score (VAS): 0 I/O: Intake & Output 06/12/21 06/13/21 06/13/21 23:59 07:59 15:59 Intake Total 250 Output Total 200 50 Balance 50 -50 Laboratory Tests 06/13/21 06:41 06/13/21 06:41 06/12/21 06/12/21 06/13/21 15:54 17:03 00:01 WBC RBC Hgb Hct MCV MCH MCHC RDW Plt Count MPV Sodium Potassium Chloride Carbon Dioxide Anion Gap BUN Creatinine Estim Creat Clear Calc Estimated GFR Glucose POC Capillary Glucose 106 H 109 H 131 H Calcium Phosphorus Albumin 06/13/21 06/13/21 06/13/21 05:07 06:41 06:41 WBC 8.6 RBC 3.42 L Hgb 10.7 L Hct 33.5 L MCV 98.0 MCH 31.3 MCHC 31.9 L RDW 20.5 H Plt Count 215 MPV 10.0 Sodium 139 Potassium 3.6 Chloride 99 Carbon Dioxide 28 Anion Gap 12 BUN 51 H D Creatinine 6.40 H Estim Creat Clear Calc 7 Estimated GFR 10 L Glucose 164 H POC Capillary Glucose 155 H Calcium 8.1 L Phosphorus 4.4 Albumin 3.5 Post-procedural complaints: none Patient Feedback: Patient satisfied with anesthetic care.
--- NOTE | 2021-06-13 12:14 | PM.PNNEP ---
Progress Note: A&P Assessment and Plan (1) End stage renal disease: Code(s): N18.6 - End stage renal disease Status: Chronic Assessment and Plan: outpatient schedule of HD every Friday (prior to COVID positivity) outpatient dialysis unit = [facility] primary slide developer = Dr. Blackman Will do a treatment today. Not much fluid needs to come off. He is NPO now. Dobbhoff tube was placed yesterday but came out. Another Dobbhoff tube is going to be placed today. (2) Pneumonia due to COVID-19 virus: Code(s): U07.1 - COVID-19; J12.82 - Pneumonia due to coronavirus disease 2019 Status: Acute Assessment and Plan: noted positive testing at [facility] completed course of steroids respiratory isolation timed out. (3) Hypotension: Code(s): I95.9 - Hypotension, unspecified Status: Acute Assessment and Plan: the patient is off pressors. (4) Anemia: Code(s): D64.9 - Anemia, unspecified Status: Chronic Assessment and Plan: partly related to ESRD but suspect acute worsening due to GI bleed s/p EGD (06/01/21) with large Zenker's diverticulum, small hiatal hernia, gastritis but no ulcer seen s/p PRBC transfusiuon hb 10.5 yesterday. He is getting Epogen. (5) Fecal impaction: Code(s): K56.41 - Fecal impaction Status: Acute Assessment and Plan: resolved Subjective Date/time seen: 06/13/21 12:14 Interval history: Patient is lying in bed comfortably. seems a little more aware today. He is on dialysis and tolerating well. He was seen at 10:00 a.m. Exam Narrative: General: Well-developed well-nourished both are Shayne male in no acute distress Heart: Regular rate and rhythm. No rub or gallop Lungs: mildly coarse and symmetric to auscultation. Abdomen: soft, nontender, nondistended, positive bowel sounds Extremities: no edema Skin: No rash or subcu nodules Mouth: dry mucus membranes Objective Data Vital Signs Vital Signs: Vital Signs - 24 hr 06/12/21 12:39 06/12/21 12:49 06/12/21 12:59 Temperature Pulse Rate 95 99 96 Respiratory Rate 17 22 H 18 Blood Pressure 80/31 L 100/51 L 110/88 Pulse Oximetry 99 100 100 06/12/21 13:10 06/12/21 16:00 06/12/21 20:00 Temperature 36.2 C L Pulse Rate 98 97 Respiratory Rate 15 20 Blood Pressure 146/80 H 124/50 L Pulse Oximetry 100 97 95 06/13/21 00:00 06/13/21 00:34 06/13/21 05:32 Temperature 36.4 C Pulse Rate 80 Respiratory Rate 16 Blood Pressure 87/45 L 98/35 L Pulse Oximetry 100 97 06/13/21 07:56 06/13/21 08:00 06/13/21 08:35 Temperature 36.3 C L 36.8 C Pulse Rate 94 98 Respiratory Rate 20 16 Blood Pressure 124/50 L 116/69 Pulse Oximetry 97 06/13/21 08:45 06/13/21 09:00 06/13/21 09:15 Temperature Pulse Rate 68 96 84 Respiratory Rate Blood Pressure 129/63 135/68 138/61 Pulse Oximetry 06/13/21 09:30 06/13/21 09:45 06/13/21 09:52 Temperature Pulse Rate 69 102 H Respiratory Rate Blood Pressure 159/53 H 141/68 H Pulse Oximetry 95 06/13/21 10:00 06/13/21 10:15 06/13/21 10:30 Temperature Pulse Rate 89 98 97 Respiratory Rate Blood Pressure 139/60 153/59 H 142/59 H Pulse Oximetry 06/13/21 10:45 06/13/21 11:00 06/13/21 11:15 Temperature Pulse Rate 76 98 98 Respiratory Rate Blood Pressure 114/62 121/47 L 135/61 Pulse Oximetry 06/13/21 11:32 Temperature Pulse Rate 78 Respiratory Rate Blood Pressure 130/57 L Pulse Oximetry Intake/Output Intake/Output: Intake & Output 06/10/21 06/11/21 06/12/21 06/13/21 23:59 23:59 23:59 23:59 Intake Total 133 028 [id number] Output Total 200 1000 370 50 Balance 100 -450 930 -50 Meds/Results Medications: Active Medications Generic Name Dose Route Start Last Admin Trade Name Freq PRN Reason Stop Dose Admin Acetaminophen 650 mg 06/13/21 10:40 Acetamin
[2021-06-13 13:48] LABS: Glucose Point of Care 136 mg/dl (65-105)
--- NOTE | 2021-06-13 14:05 | PM.DS ---
DS: Admitting Diagnosis Discharge Date 06/13/2021 Admitting Diagnosis shortness of breath DS: Discharge Diagnosis Discharge Diagnosis (1) Acute respiratory failure with hypoxia: Code(s): J96.01 - Acute respiratory failure with hypoxia Status: Acute Assessment and Plan: Patient intubated now for airway protection and hypoxia Chest x-ray and shows bilateral infiltrates likely pulmonary edema. he received hemodialysis yesterday and 2 L fluid was removed 06/03 ABG reviewed Vent settings reviewed. weaning trial was performed this morning but patient failed due to increased work of breathing with use of some abdominal and accessory muscle, elevated respiratory rate, heart rate and blood pressure 06/09/2021 interval history: patient remains clinically stable and patient was being weaned off ventilator and hopefully extubate today, however patient was not able to tolerate and was placed back on vent, on 06/08 patient was successfully extubated and currently on NC, patient has a Dobbhoff started tube feeding, patient hemoglobin was slowly trending down had a EGD did not show any obvious source of bleeding, 06/08 and today patient had a melanotic stool hemoglobin was dropping and patient was given total of 4 units of pack RBC, patient on PPI and patient will be seen by GI and further recommendation to follow, patient was seen hospital carrier unlikely hemolytic anemia suspect most likely GI cause of anemia, patient with end-stage renal disease on hemodialysis will have a scheduled dialysis seen by boat carpenter. 06/10/2021 interval history: patient remains clinically stable and patient was being weaned off ventilator and hopefully extubate today, however patient was not able to tolerate and was placed back on vent, on 06/08 patient was successfully extubated and currently on NC, patient has a Dobbhoff started tube feeding, however patient pulled out his Dobbhoff, patient hemoglobin was slowly trending down had a EGD did not show any obvious source of bleeding, on 06/08 and 06/09 patient had a melanotic stool hemoglobin was dropping and patient was given total of 4 units of pack RBC, patient on PPI and patient will be seen by GI and further recommendation to follow, patient was seen hospital carrier unlikely hemolytic anemia suspect most likely GI cause of anemia, patient with end-stage renal disease on hemodialysis will have a scheduled dialysis seen by boat carpenter. Patient is out of ICU and and medical floor. 06/11/2021 interval history: patient remains clinically stable and patient was being weaned off ventilator and hopefully extubate today, however patient was not able to tolerate and was placed back on vent, on 06/08 patient was successfully extubated and currently on NC, patient has a Dobbhoff started tube feeding, however patient pulled out his Dobbhoff, patient hemoglobin was slowly trending down had a EGD did not show any obvious source of bleeding, on 06/08 and 06/09 patient had a melanotic stool hemoglobin was dropping and patient was given total of 4 units of pack RBC, patient on PPI and patient will be seen by GI and further recommendation to follow, patient was seen hospital carrier unlikely hemolytic anemia suspect most likely GI cause of anemia, patient with end-stage renal disease on hemodialysis will have a scheduled dialysis seen by boat carpenter. Patient is out of ICU and and medical floor. patient had pulled out his Dobbhoff, IR had placed Dobbhoff today and again patient pulled it out an IR again placed it, will resume tube feed, she will have dialysis today patient remains clinically stable, his hemoglobin remains stable will discuss with Nephrology may discharge patient home tomorrow. 06/12/2021 interval history: patient remains clinically stable and patient was being weaned off ventilator and hopefully extubate today, however patient was not able to tolerate and was placed back on vent, on 06/08 patient was successfully
[2021-06-13] MEDS: FOLIC ACID 1 MG TABLET FEED TUBE (14:16)
[2021-06-13] MEDS: polyethylene glycoL 3350 17 GM POWD.PACK FEED TUBE (14:17)
[2021-06-13] MEDS: PANTOPRAZOLE SODIUM IV 40 MG VIAL IV PUSH (14:32)
--- NOTE | 2021-06-13 14:55 | PC.NURSE ---
On 06/13/21, the student, Krista Mack, provided care and completed [facility] documentation on this patient. I have reviewed the student's documentation and agree with the findings.
[2021-06-13] MEDS: dilTIAZem HCL 30 MG TABLET FEED TUBE (18:58)
[2021-06-13 19:03] LABS: Glucose Point of Care 153 mg/dl (65-105)
== END 2021-06-13 19:55 | DRG 130 ==
LOC: ANHED 20:29 → ANH3MEDSUR 22:11 → ANHICU 06-01 08:16 → ANH3MEDSUR 06-12 08:03 → ANHICU 06-14 10:17 → ANHIMU 06-14 10:17
PROVIDERS: Family Medicine; Internal Medicine; Internal Medicine Gastroenterology; Internal Medicine Nephrology; Admitting Provider Internal Medicine; Emergency Provider Emergency Medicine; PCP Internal Medicine; Visit Provider Family Medicine
PROC: 0DJ08ZZ Inspection of Upper Intestinal Tract, Via Natural or Artificial Opening Endoscopic (ICD-10-PCS; CPT 43235; principal; 2021-06-01 14:30)
PROC: 0DH63UZ Insertion of Feeding Device into Stomach, Percutaneous Approach (ICD-10-PCS; CPT 43246; principal; 2021-06-12 12:30)
DX: U07.1 COVID-19 (principal); J96.01 Acute respiratory failure with hypoxia; J12.82 Pneumonia due to coronavirus disease 2019; J15.9 Unspecified bacterial pneumonia; F03.90 Unspecified dementia, unspecified severity, without behavioral disturbance, psychotic disturbance, mood disturbance, and anxiety; Z99.2 Dependence on renal dialysis; I12.0 Hypertensive chronic kidney disease with stage 5 chronic kidney disease or end stage renal disease; N18.6 End stage renal disease; Z79.01 Long term (current) use of anticoagulants; Y95 Nosocomial condition; D63.1 Anemia in chronic kidney disease; E87.1 Hypo-osmolality and hyponatremia; R68.0 Hypothermia, not associated with low environmental temperature; G93.40 Encephalopathy, unspecified; I95.3 Hypotension of hemodialysis; R00.0 Tachycardia, unspecified; K56.41 Fecal impaction; G92.8 Other toxic encephalopathy; K22.5 Diverticulum of esophagus, acquired; K44.9 Diaphragmatic hernia without obstruction or gangrene; K29.71 Gastritis, unspecified, with bleeding; K56.7 Ileus, unspecified; R91.8 Other nonspecific abnormal finding of lung field; R09.2 Respiratory arrest; E87.3 Alkalosis; D62 Acute posthemorrhagic anemia
CPT/HCPCS: 31500; 36415; 36430; 36556; 36600; 43246; 43752; 70450; 71045; 71250; 74018; 74176; 80053; 80069; 80074; 80202; 81479; 82140; 82274; 82375; 82607; 82728; 82746; 82805; 82948; 83010; 83050; 83540; 83550; 83615; 83735; 84100; 84145; 84443; 85014; 85018; 85025; 85027; 85046; 85610; 85730; 86140; 86704; 86706; 86850; 86860; 86870; 86880; 86900; 86901; 86902; 86920; 86922; 86971; 87040; 87070; 87086; 87205; 92610; 93005; 94002; 94003; 94618; 94640; 95816; 96365; 96367; 96375; 97110; 97162; 97165; 97530; 97535; 99291; A9270; C1751; C9113; G0257; G0378; G0379; J0171; J0456; J0692; J0696; J1100; J1644; J1650; J1940; J1953; J2060; J2250; J2543; J2704; J2930; J3010; J3370; J7030; J7040; J7050; J7070; P9016; P9047; Q5105

== ENCOUNTER 2021-08-27 10:12 | Emergency (ER) | payer BC, SELFPAY ==
--- NOTE | ~2021-08-27 | XR_ITS ---
EXAMINATION: XR hip LT 2V w AP pelvis INDICATION: Left hip pain TECHNIQUE: AP view the pelvis and two views of the left hip are obtained. COMPARISON: None available FINDINGS: There are changes of left total hip arthroplasty. No fracture is identified. There is no ev idence of orthopedic hardware failure. Calcified atherosclerosis is noted. IMPRESSION: 1. No acute osseous abnormality. Reviewed, dictated and finalized at location A.
--- NOTE | ~2021-08-27 | CT_ITS ---
EXAMINATION: CT pelvis wo con DATE: 08/27/2021 13:55 INDICATION: Left hip pain. Fall. TECHNIQUE: Computed tomography (CT) of the pelvis was performed without intravenous contrast. Automat ed exposure control and iterative reconstruction technique were employed. The dose-length product was 224.96 mGy-cm. 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 No periprosthetic lucency to suggest loosening or infection. There is moderate right hip osteoarthritis. There is a fracture o f S5 segment of the sacrum. The distal fracture fragment demonstrates 2 mm anterior displacement and impaction. There is moderate lumbar spondylosis. IMPRESSION: 1. Fracture of S5 segment of the sacrum. 2. Moderate lumbar spondylosis. 3. 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 4. Moderate right hip osteoarthritis. Reviewed, dictated and finalized at location B.
[2021-08-27 10:15] VITALS: BP 149/47; PULSE 48; RESP 18; TEMP 37.1; O2SAT 100
[2021-08-27 13:03] VITALS: BP 137/55; PULSE 64; RESP 18; O2SAT 100
--- NOTE | 2021-08-27 13:23 | ED.GENADULT ---
HPI - General Adult General Chief complaint: Extremity Injury, Lower Stated complaint: L hip pain s/p fall Time Seen by Provider: 08/27/21 12:23 Source: patient and RN notes reviewed Mode of arrival: ambulatory Limitations: no limitations History of Present Illness HPI narrative: 76-year-old male presenting the to the emergency department for evaluation after having a ground-level fall 3 days ago. Patient does report left hip pain that is worsened with ambulation. Patient denies any other pain or injury. Patient also does have an indwelling Patel catheter that has been in place for greater than 2 months per family. Son states that he was discharged from the hospital straight to the snf for rehab and the son never saw any discharge papers or if he was ever referred to urology. Related Data Home Medications Medication Instructions Recorded Confirmed hydrocodone-acetaminophen 1 tablet PO Q6H PRN 05/18/21 05/19/21 Allergies Allergy/AdvReac Type Severity Reaction Status Date / Time No Known Allergies Allergy Verified 08/27/21 13:10 Review of Systems Review of Systems: CONSTITUTIONAL: Denies fever, chills, or sweats. EYES: Denies visual changes, redness, or discharge. ENT: Denies rhinorrhea, congestion, sore throat, or otalgia. CARDIOVASCULAR: Denies chest pain, palpitations, or edema. RESPIRATORY: Denies cough or dyspnea. GASTROINTESTINAL: Denies abdominal pain, nausea, vomiting, or diarrhea. GENITOURINARY: Denies dysuria or hematuria. SKIN: Denies rash or itching. MUSCULOSKELETAL: Left hip pain. NEUROLOGIC: Denies headache, numbness, or weakness. FOR[facility]LY [facility] Past Medical History Medical History Chronic renal failure Social History Social History Smoking status: Never smoker Second hand tobacco smoke exposure: No Alcohol intake: never Substance use: never Substance use type: does not use Spiritual care concerns: No Exam Narrative: APPEARANCE: No pain, no distress, well-nourished. HEAD: normocephalic, atraumatic. EYES: PERRLA/EOMI, conjunctivae clear. NOSE: Normal no drainage RESPIRATORY: Airway patent, respirations nonlabored. Clear to auscultation bilaterally, no rales, rhonchi, wheezing. CARDIOVASCULAR: Regular rate and rhythm without murmurs rubs or gallops. ABDOMINAL: Soft, nontender, nondistended, normal bowel sounds MUSCULOSKELETAL: Moves all extremities. Some increased tenderness and pain with passive range of motion of the left hip. NEURO: Alert. Cranial nerves II through XII intact. Grossly intact Course Course Emergency Course: Patient and son were updated on the results of the imaging and follow-up with orthopedics. Patel catheter was exchanged and patient was given follow-up for urology. Consultations Consultation #1: Dr. Sauceda was comfortable with the plan for outpatient follow-up. Vital Signs Vital signs: Vital Signs Temperature 98.7 F 08/27/21 10:15 Pulse Rate 48 L 08/27/21 10:15 Respiratory Rate 18 08/27/21 10:15 Blood Pressure 149/47 H 08/27/21 10:15 Pulse Oximetry 100 08/27/21 10:15 Temperature 98.7 F 08/27/21 10:15 Pulse Rate 73 08/27/21 14:49 Respiratory Rate 18 08/27/21 14:49 Blood Pressure 154/72 H 08/27/21 14:49 Pulse Oximetry 100 08/27/21 14:49 Medical Decision Making Vital Signs Vital Signs: Vital Signs Temperature 98.7 F 08/27/21 10:15 Pulse Rate 48 L 08/27/21 10:15 Respiratory Rate 18 08/27/21 10:15 Blood Pressure 149/47 H 08/27/21 10:15 Pulse Oximetry 100 08/27/21 10:15 Temperature 98.7 F 08/27/21 10:15 Pulse Rate 73 08/27/21 14:49 Respiratory Rate 18 08/27/21 14:49 Blood Pressure 154/72 H 08/27/21 14:49 Pulse Oximetry 100 08/27/21 14:49 Lab Data Labs: Urine Characteristics Cloudy Imaging Data Radiologist's impression:
[2021-08-27 14:49] VITALS: BP 154/72; PULSE 73; RESP 18; O2SAT 100
== END 2021-08-27 15:28 | disposition home or self-care (01) ==
PROVIDERS: Emergency Provider Emergency Medicine; PCP Internal Medicine
DX: S32.19XA Other fracture of sacrum, initial encounter for closed fracture (principal); R33.9 Retention of urine, unspecified; N18.9 Chronic kidney disease, unspecified; M47.816 Spondylosis without myelopathy or radiculopathy, lumbar region; Z96.642 Presence of left artificial hip joint; M16.11 Unilateral primary osteoarthritis, right hip; W01.0XXA Fall on same level from slipping, tripping and stumbling without subsequent striking against object, initial encounter
CPT/HCPCS: 51702; 72192; 73502; 99284

== ENCOUNTER 2021-10-12 09:32 | Outpatient (CLI) | payer BC, SELFPAY ==
--- NOTE | ~2021-10-12 | XR_ITS ---
MODIFIED ESOPHAGRAM HISTORY: Dysphagia. TECHNIQUE: Modified barium esophagram was performed on 10/12/2021. I administered fluoroscopy and perf ormed the exam with speech pathologist. Patient was seated for lateral fluoroscopic imaging for jose manuel stion of thin liquids, pudding, solids and quantified amounts, followed by thin liquids in uncontroll ed amounts. This was recorded on tape. 3 fluoroscopic spot images were also recorded. The DAP for thi s procedure was 5.34 Gycm2. The amount of fluoroscopy time used during this procedure was 2.0 minutes . FINDINGS: Oral stage: Adequate function accounting edentulous state requiring increased mastication. Pharyngeal stage: Adequate function. Cervical/esophageal stage: Adequate function however contrast does fill an approximately 2 cm Zenker' s diverticulum. The neck is likely at the level of the cricopharyngeus with a diverticulum on prior C T dated 05/25/2021 located in the midline posterior to the esophagus. Following the swallow there is p rogressive reflux of contrast from the Zenker's diverticulum into the bilateral piriform sinuses. IMPRESSION: 1. Patient tolerated regular consistency oral feedings in the upright position. Please correlate wit h speech pathologist findings and specific feeding recommendations. 2. Delayed reflux of contrast into the bilateral piriform sinuses from a 2 cm diameter Zenker's diver ticulum. Reviewed, dictated and finalized at location A. IMPRESSION: 1. Patient tolerated regular consistency oral feedings in the upright position. Please correlate with speech pathologist findings and specific feeding recomm endations. 2. Delayed reflux of contrast into the bilateral piriform sinuses from a 2 cm d iameter Zenker's diverticulum.
--- NOTE | 2021-10-12 12:10 | STOPEVAL ---
MODIFIED BARIUM SWALLOW EVALUATION: Thanks you for referring Jules Mitchell to [facility] [place]Note 2[place]? Attending Provider: Naveen Clark DO fax #: [phone] Modified Barium Swallow Evaluation Recent Swallowing History Reports Dysphagia pt's son reports he's been swallowing fine at home History of Dysphagia Yes: 05/2021 resulted in PEG tube feedings Other Related History Zenker's diverticulum History of Pneumonia Yes: per son: covid pneumonia Reported Difficult Consistencies Unable to Identify Intake Method Prior to Swallow Oral,Gastrostomy Evaluation Diet Prior to Swallow Evaluation Pureed, Level 4 Liquid Consistency Prior to Swallow Thin (0) Evaluation Dentition Comments edentulous Consistency Mixed Consistency Other Amount fruit cocktail Method of Presentation Spoon Oral Preparatory Phase Comments slow and excessive mastication . no leakage or pocketing but a very small amount was given Oral Phase Symptoms Within Functional Limits Pharyngeal Phase Symptoms Within Functional Limits Cervical/Esophageal Symptoms Zenker's Diverticulum Cervical/Esophageal Phase Comments moderate backflow into pyriform sinuses; no entry into the laryngeal vestibule; however, aspiration risk is present. Upon dry swallows, pyriform sinuses are partially cleared. Pureed Consistency Method of Presentation Spoon Oral Preparatory Symptoms Within Functional Limits Oral Phase Symptoms Within Functional Limits Pharyngeal Phase Symptoms Within Functional Limits Cervical/Esophageal Symptoms Zenker's Diverticulum Cervical/Esophageal Phase Comments moderate to max backflow into pyriform sinuses; no entry into the laryngeal vestibule; however, aspiration risk is present. Upon dry swallows, pyriform sinuses are partially cleared. Thin Uncontrolled 2 Method of Presentation Straw Oral Preparatory Symptoms Within Functional Limits Oral Phase Symptoms Within Functional Limits Pharyngeal Phase Symptoms Within Functional Limits 8 Point Laryngeal Penetration-Aspiration Material Does Not Enter Airway Scale Cervical/Esophageal Symptoms Zenker's Diverticulum Cervical/Esophageal Phase Comments backflow into pyriform sinuses ; no entry into the laryngeal vestibule; however, aspiration
== END 2021-10-12 09:33 | disposition home or self-care (01) ==
PROVIDERS: PCP Internal Medicine; Visit Provider Internal Medicine
DX: R13.10 Dysphagia, unspecified (principal); Z93.1 Gastrostomy status
CPT/HCPCS: 92611

== ENCOUNTER 2021-10-19 01:39 | Day surgery (SDC) | payer BC, SELFPAY ==
[2021-09-28 14:03] VITALS: BMI 21.7
--- NOTE | 2021-10-19 11:59 | PM.HPGS ---
History of Present Illness History of Present Illness Consent: Risks, benefits, and alternatives have been discussed and questions answered. Patient agrees to proceed with procedure. Chief complaint: Removal Of G-tube Narrative: Jules Mitchell is a 76 year old male Who had a percutaneous gastrostomy tube placed in May when he was in intensive care unit and unable to eat. He ultimately went to a group home and was released from there about a month later. He has been eating without difficulty and no longer using that gastrostomy tube for the past 2 months. Review of Systems Review of Systems: All systems reviewed & are unremarkable except as noted in HPI and below PMFSH Past Medical History Medical History Arthritis Chronic renal failure Surgical History Surgical History No history of previous surgery Family History Family History Other Diabetes mellitus Hypertension Social History Social History Smoking status: Never smoker Second hand tobacco smoke exposure: No Alcohol intake: never Substance use: never Substance use type: does not use Living arrangements: with family Gender identity (if verbalized by the patient): Male Spiritual care concerns: No Meds Home Medications and Allergies Home Medications Medication Instructions Recorded Confirmed Type lisinopril 10 mg tablet 10 mg PO DAILY #30 tabs 05/30/21 10/19/21 Rx allopurinol 100 mg tablet 100 mg PO HS 09/19/21 10/19/21 History apixaban 2.5 mg tablet (Eliquis) 2.5 mg PO BID 09/19/21 10/19/21 History atorvastatin 20 mg tablet 20 mg PO HS 09/19/21 10/19/21 History diltiazem HCl 30 mg tablet 30 mg PO Q6HR 09/19/21 10/19/21 History folic acid 1 mg tablet 1 mg PO DAILY 09/19/21 10/19/21 History furosemide 80 mg tablet 80 mg PO BID 09/19/21 10/19/21 History polyethylene glycol 3350 17 gram 17 g PO QAM PRN Constipation 09/19/21 10/19/21 History oral powder packet (Miralax) ropinirole 0.5 mg tablet 0.5 mg PO 3XW 09/19/21 10/19/21 History sevelamer carbonate 800 mg tablet 800 mg PO TID Crushes tablet and 09/19/21 10/19/21 History puts in food apixaban 2.5 mg tablet (Eliquis) 2.5 mg PO DAILY 10/19/21 10/19/21 History Allergies Allergy/AdvReac Type Severity Reaction Status Date / Time No Known Allergies Allergy Verified 10/19/21 10:56 Exam Const: General: alert Orientation/consciousness: patient oriented x3 Resp: Auscultation: clear to auscultation bilaterally Cardio: Rhythm: regular rhythm GI: Inspection: other ( Gastroscopy tube in left upper quadrant) GI Palp: Yes Soft to palpation and No Tenderness to palpation present (GI) Neuro: General: patient oriented x3 Assessment and Plan Assessment and plan (1) Gastrojejunostomy tube status: Code(s): Z93.4 - Other artificial openings of gastrointestinal tract status Status: Acute Assessment and Plan: removal of gastrostomy to
--- NOTE | 2021-10-30 08:22 | PM.OP ---
Procedure Note - Brief Procedure Note - Brief Date of procedure: 10/30/21 Pre-op diagnosis: Removal Of G-tube Procedure performed: removal of G-tube Description of procedure: with the patient in the supine position, his indwelling, senescent G-tube was lubricated with KY jelly. The tract was lubricated by moving the tube in in out. The tube was then removed with the usual traction technique. A dressing was applied. He tolerated the procedure well Surgeon: Brooks Vilchis MD Estimated blood loss (mL): 0
== END 2021-10-19 12:09 | disposition home or self-care (01) ==
PROVIDERS: PCP Internal Medicine; Visit Provider Internal Medicine Gastroenterology
PROC: 0DH63UZ Insertion of Feeding Device into Stomach, Percutaneous Approach (ICD-10-PCS; CPT 43246; principal; 2021-10-19 11:30)
DX: Z43.1 Encounter for attention to gastrostomy (principal); M19.90 Unspecified osteoarthritis, unspecified site; N18.9 Chronic kidney disease, unspecified; Z79.01 Long term (current) use of anticoagulants
CPT/HCPCS: 99211; G0463

== ENCOUNTER 2023-05-28 15:21 | Inpatient (IN) | payer MEDICARE, MEDICAID, SELFPAY ==
--- NOTE | ~2023-05-28 | CT_ITS ---
EXAMINATION: CT hip RT w con DATE: 05/28/2023 18:26 INDICATION: Right hip pain and hematoma post fall TECHNIQUE: High resolution computed tomography (CT) of the right hip was performed with 100 mL Omnipa que-350 intravenous contrast. Additional sagittal and coronal reconstructions were performed. Automat ed exposure control and iterative reconstruction technique were employed. The dose-length product was 151.69 mGy-cm. COMPARISON: Radiographs dated 05/28/2023 FINDINGS: Left total hip arthroplasty, partially visualized on the CT images but better visualized on the hand upper and bottom lacer topogram. Bone alignment is normal. No fracture. Mild osteoarthritis at the right hip and bilateral sacroiliac joints. There is a 10 x 8 x 5 cm region of increased density in the subcutaneous tissues o verlying the greater trochanter of the proximal right femur. The density appears more homogeneous shruthi trally likely representing edema surrounding a more central hematoma. Centrally within the likely hem atoma is a 2.8 cm long serpiginous extension of contrast which is larger in caliber than the surround ing subcutaneous vessels most consistent with active extravasation. Atherosclerotic calcifications in the bilateral internal and external iliac arteries. Bladder and visualized portion of the bowels in the pelvis are unremarkable. No free fluid in the pelvis. No pathologically enlarged pelvic or right inguinal lymphadenopathy. IMPRESSION: 1. Small amount of active contrast extravasation within a likely subcutaneous hematoma with surroundi ng edema overlying the right greater trochanter. 2. No acute osseous abnormality. Reviewed, dictated and finalized at location A. ETIC TAPE TYPEWRITER OPERATOR IMPRESSION: 1. Small amount of active contrast extravasation within a likely subcutaneous h ematoma with surrounding edema overlying the right greater trochanter. 2. No acute osseous abnormality.
--- NOTE | ~2023-05-28 | CT_ITS ---
EXAMINATION: CT diagnostic chest wo con DATE: 05/29/2023 19:03 INDICATION: lung mass TECHNIQUE: Computed tomography (CT) of the chest was performed without intravenous contrast. Addition al 3D reconstructions utilizing coronal maximum intensity projection (MIP) were performed. Automated exposure control and iterative reconstruction technique were employed. The dose-length product was 13 0.49 mGy-cm. COMPARISON: Chest CT dated 05/25/2021 FINDINGS: There are dependent and basilar predominant peripheral linear and reticular opacities in both lungs i n the region of prior more dense consolidation which suggests scarring related to chronic pneumonia. No pulmonary edema, pleural effusion or pneumothorax. No pulmonary masses identified. The nodular opa city on prior radiograph likely represents a combination of shadows from the ribs and caudal tip of t he right scapula. Heart size is normal. Atherosclerotic coronary artery calcifications. No pericardia l effusion. Thoracic aorta is normal in caliber. Calcified left hilar and mediastinal lymph nodes con sistent with old granulomatous disease. Increased attenuation of the hepatic parenchyma which is nons pecific but most typically seen with hemachromatosis or iodine deposition in the setting of chronic a miodarone use. Moderate atrophy of the visualized portions of both kidneys. A millimeter nonobstructi ng stone at an upper pole calyx of the left kidney. Moderate to severe thoracic spondylosis with movie theater usher rohit appearing mild anterior wedging at T7. There is diffuse sclerosis of the bones which given the re nal atrophy is most likely related to renal osteodystrophy. IMPRESSION: 1. Dependent and peripheral predominant linear and reticular opacities in both lungs in the same dist ribution as prior more dense consolidation which suggests sequela of chronic pneumonia. 2. Increased density of the liver most typically seen with hemachromatosis or iodine deposition in th e setting of chronic amiodarone use. 3. Increased density of the bones which given the moderate atrophy of the visualized portions of the kidneys suggests sequela of chronic renal osteodystrophy. 4. 8 mm nonobstructing right renal stone. Reviewed, dictated and finalized at location A. WRINGER IMPRESSION: 1. Dependent and peripheral predominant linear and reticular opacities in both lungs in the same distribution as prior more dense consolidation which suggests sequela of chronic pneumonia. 2. Increased density of the liver most typically seen with hemachromatosis or i odine deposition in the setting of chronic amiodarone use. 3. Increased density of the bones which given the moderate atrophy of the visua lized portions of the kidneys suggests sequela of chronic renal osteodystrophy. 4. 8 mm nonobstructing right renal stone.
--- NOTE | ~2023-05-28 | XR_ITS ---
XR hip RT 2V w AP pelvis DATE: 05/28/2023 16:54 INDICATION: Right hip pain following fall TECHNIQUE: AP pelvis. AP and lateral views of right hip. COMPARISON: 08/27/2021 CT pelvis 08/27/2021 AP pelvis, left hip FINDINGS: Status post left total hip arthroplasty. No pelvic fracture or bone destruction. Normal alignment at the pubic symphysis and sacroiliac joints . Right hip joint space is mildly narrowed. No fracture or dislocation, avascular necrosis or bone de struction of the right hip. There is calcification of the abdominal aorta, iliac and femoral arteries. Prominent amount of fecal material in the rectum and colon. IMPRESSION: No fracture or dislocation or other significant abnormality of the right hip, other than mild osteoarthritis Status post left total hip arthroplasty Reviewed, dictated and finalized at location B. OW CASER
--- NOTE | ~2023-05-28 | XR_ITS ---
Portable chest x-ray Comparison: 06/10/2021 Clinical History: Shortness of breath Findings: There is a 2 cm nodular opacity at the right lung base. There is mild haziness left lung b ase, nonspecific. Cardiomediastinal silhouette is stable. Bones and soft tissues are unremarkable. Impression: 2 cm nodular opacity right lung base. CT scan recommended to further evaluate. Nonspecific haziness left lung base. Reviewed, dictated and finalized at location . ING MACHINE REPAIRER Impression: 2 cm nodular opacity right lung base. CT scan recommended to further evaluate. Nonspecific haziness left lung base.
--- NOTE | ~2023-05-28 | CT_ITS ---
EXAMINATION: CT brain wo con DATE: 05/28/2023 16:47 INDICATION: Head injury. TECHNIQUE: Computed tomography (CT) of the head was performed without intravenous contrast. The mA wa s adjusted according to patient size. Iterative reconstruction technique was employed. The dose-lengt h product was 605.33 mGy-cm. COMPARISON: Head CT 05/30/2021 FINDINGS: There is an old infarct in left cerebellum. There are old infarcts in the bilateral basal g anglia. There are scattered areas of low attenuation in the cerebral white matter. There is no intrac ranial hemorrhage, acute infarction, or abnormal intracranial mass lesion. The ventricles are normal in size. The orbits are normal. There is mild mucosal thickening in the paranasal sinuses. The mastoi d air cells are normal. C1 ring is ununited anteriorly and posteriorly, which is chronic. IMPRESSION: 1. 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 2. Stable moderate nonspecific cerebral white matter disease, which likely represents chronic small v essel ischemic disease. Reviewed, dictated and finalized at location A. IGERATOR REPAIRMAN IMPRESSION: 1. 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 2. Stable moderate nonspecific cerebral white matter disease, which likely repr esents chronic small vessel ischemic disease.
[2023-05-28 15:25] VITALS: BP 173/47; PULSE 64; RESP 20; TEMP 37.3; O2SAT 100
--- NOTE | 2023-05-28 16:44 | ED.FALL ---
HPI - Fall General Chief Complaint: Fall Stated Complaint: fall, R. hip pain Time Seen by Provider: 05/28/23 15:42 History of Present Illness HPI Narrative: Patient is a 77-year-old fall. Father was right hip all given wound bed. Patient unable to provide a thorough history due to dementia. Apparently his son was here with them and was helping provide history originally. Unsure if patient struck his head. Patient does take apixaban. Has no additional complaints this time outside of right hip pain with movement. He has been able to bear weight since the fall. Related Data Home Medications Medication Instructions Recorded Confirmed allopurinol 100 mg tablet 100 mg PO HS 09/19/21 10/22/21 apixaban 2.5 mg tablet (Eliquis) 2.5 mg PO BID 09/19/21 10/22/21 atorvastatin 20 mg tablet 20 mg PO HS 09/19/21 10/22/21 folic acid 1 mg tablet 1 mg PO DAILY 09/19/21 10/22/21 furosemide 80 mg tablet 80 mg PO BID 09/19/21 10/22/21 polyethylene glycol 3350 17 gram 17 g PO QAM PRN Constipation 09/19/21 10/22/21 oral powder packet (Miralax) ropinirole 0.5 mg tablet 0.5 mg PO 3XW 09/19/21 10/22/21 diltiazem HCl 30 mg tablet 30 mg PO TID 10/22/21 10/22/21 sevelamer carbonate 800 mg tablet 800 mg PO BID Crushes tablet and 10/22/21 10/22/21 puts in food tamsulosin 0.4 mg capsule (Flomax) 0.4 mg PO DAILY 10/22/21 10/22/21 Allergies Allergy/AdvReac Type Severity Reaction Status Date / Time No Known Allergies Allergy Verified 10/22/21 08:59 Review of Systems Review of Systems: ROS unobtainable: Yes unobtainable due to mental status PMFSH Past Medical History Medical History (Updated 05/28/23 @ 22:03 by Dre Ramirez MD) Arthritis Chronic renal failure Dementia Hypertension Surgical History Surgical History History of hip replacement Left No history of previous surgery Family History Family History Other Diabetes mellitus Hypertension Social History Social History Smoking status: Never smoker Second hand tobacco smoke exposure: No Alcohol intake: never Substance use: never Substance use type: does not use Living arrangements: with family Occupation/Education: retired Gender identity (if verbalized by the patient): Male Spiritual care concerns: No Exam Narrative: GENERAL: Chronically-appearing, well-nourished, and in no acute distress. HEAD: Normocephalic, atraumatic. ENT: Mucous membranes moist. NECK: Supple. CHEST: Clear to auscultation. No respiratory distress. HEART: Regular rate and rhythm. Normal peripheral pulses. EXTREMITIES: Normal range of motion. No edema. Mild right hip tenderness. Large hematoma over right greater trochanter SKIN: Warm, dry, no rash. NEURO: Alert and oriented x3. PSYCH: Normal mood and affect. Course Course Emergency Course: patient with active extravasation into his hematoma. General surgery consulted as is nephrology is patient will require dialysis. A typically dialyzes Friday/ /Friday. Regino wrap applied to the right lower extremity. Right elevated. Admit for observation to hospitalist service. Vital Signs Vital signs: Vital Signs Temperature 99.1 F 05/28/23 15:25 Pulse Rate 64 05/28/23 15:25 Respiratory Rate 20 05/28/23 15:25 Blood Pressure 173/47 H 05/28/23 15:25 Pulse Oximetry 100 05/28/23 15:25 Oxygen Delivery Room Air 05/28/23 15:25 Temperature 97.5 F L 05/28/23 17:27 Pulse Rate 83 05/28/23 20:02 Respiratory Rate 13 05/28/23 20:02 Blood Pressure 142/68 H 05/28/23 20:02 Pulse Oximetry 94 05/28/23 20:02 Oxygen Delivery Room Air 05/28/23 15:25 MDM - Fall Lab Data 05/28/23 17:58 05/28/23 18:40 Labs: Lab Results 05/28/23 05/28/23 05/28/23 Range/Units 17:58 18:08 18:40
[2023-05-28 17:27] VITALS: PULSE 68; RESP 18; TEMP 36.4; O2SAT 99
[2023-05-28 18:08] LABS: Basophils Percent Auto 0.5 % (0.2-1.2); Eosinophils Absolute Auto 0.3 K/mm3 (0-0.3); Eosinophils Percent Auto 5.1 % (0-4.4); Hematocrit 34.6 % (42.0-52.0); Hemoglobin 10.8 g/dL (14.0-18.0); Immature Granulocyte Absolute 0.01 K/mm3 (0.00-0.031); Immature Granulocyte Percent A 0.2 % (0-0.5); Lymphocytes Absolute Auto 1.88 K/mm3 (0.9-3.2); Lymphocytes Percent Auto 32.8 % (18.3-44.2); Mean Corpuscular HGB Conc 31.2 g/dl (32-36); Mean Corpuscular Hemoglobin 32.2 pg (26-34); Mean Corpuscular Volume 103.3 fl (80-100); Mean Platelet Volume 10.3 fl (7.4-10.4); Monocytes Absolute Auto 0.5 K/mm3 (0.1-0.6); Monocytes Percent Auto 9.4 % (2.6-8.5); Platelet Count Result 167 k/mm3 (150-375); Red Blood Count 3.35 M/mm3 (4.6-6.20); Red Cell Distribution Width 14.5 % (11.5-14.5); White Blood Count 5.7 K/mm3 (4.5-10.0)
[2023-05-28 18:13] LABS: Estimated CRCL calculation 6 ml/min; Estimated Glomerular Filt Rate 9
[2023-05-28 18:56] LABS: Anion Gap 8 mmol/L (8-16); Blood Urea Nitrogen 28 mg/dL (9-20); Calcium 9.2 mg/dL (8.4-10.2); Carbon Dioxide 33 mmol/L (22-30); Chloride 95 mmol/L (98-107); Estimated CRCL calculation 8 ml/min; Estimated Glomerular Filt Rate 12; Glucose 78 mg/dL (65-110); Potassium 4.7 mmol/L (3.4-5.0); Sodium 136 mmol/L (137-145)
[2023-05-28 18:58] LABS: INR 1.2; Prothrombin Time 15.8 Seconds (11.1-14.7)
[2023-05-28 18:59] LABS: Partial Thromboplastin Time 35.6 SECONDS (22.3-36.8)
--- NOTE | 2023-05-28 19:57 | PM.IMHP ---
H&P: HPI History of Present Illness Date/Time: 05/28/23 19:57 Chief Complaint: fall Narrative: this is a 77-year-old male with past medical history significant for atrial fibrillation rate controlled anticoagulated, hypertension, chronic kidney disease. Patient was brought to the emergency room for evaluation after a fall. Most of the history has been obtained upon reviewing medical records. Patient can not contribute to history taking in a meaningful way. Preliminary workup was significant for hematoma in the right trochanter area. Patient is being placed in observation for further evaluation, management and treatment. EXAMINATION: CT brain wo con DATE: 05/28/2023 16:47 INDICATION: Head injury. TECHNIQUE: Computed tomography (CT) of the head was performed without intravenous contrast. The mA was adjusted according to patient size. Iterative reconstruction technique was employed. The dose-length product was 605.33 mGy-cm. COMPARISON: Head CT 05/30/2021 FINDINGS: There is an old infarct in left cerebellum. There are old infarcts in the bilateral basal ganglia. There are scattered areas of low attenuation in the cerebral white matter. There is no intracranial hemorrhage, acute infarction, or abnormal intracranial mass lesion. The ventricles are normal in size. The orbits are normal. There is mild mucosal thickening in the paranasal sinuses. The mastoid air cells are normal. C1 ring is ununited anteriorly and posteriorly, which is chronic. IMPRESSION: 1. 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 2. Stable moderate nonspecific cerebral white matter disease, which likely represents chronic small vessel ischemic disease. EXAMINATION: CT hip RT w con DATE: 05/28/2023 18:26 INDICATION: Right hip pain and hematoma post fall TECHNIQUE: High resolution computed tomography (CT) of the right hip was performed with 100 mL Omnipaque-350 intravenous contrast. Additional sagittal and coronal reconstructions were performed. Automated exposure control and iterative reconstruction technique were employed. The dose-length product was 151.69 mGy-cm. COMPARISON: Radiographs dated 05/28/2023 FINDINGS: Left total hip arthroplasty, partially visualized on the CT images but better visualized on the customer success specialist topogram. Bone alignment is normal. No fracture. Mild osteoarthritis at the right hip and bilateral sacroiliac joints. There is a 10 x 8 x 5 cm region of increased density in the subcutaneous tissues overlying the greater trochanter of the proximal right femur. The density appears more homogeneous centrally likely representing edema surrounding a more central hematoma. Centrally within the likely hematoma is a 2.8 cm long serpiginous extension of contrast which is larger in caliber than the surrounding subcutaneous vessels most consistent with active extravasation. Atherosclerotic calcifications in the bilateral internal and external iliac arteries. Bladder and visualized portion of the bowels in the pelvis are unremarkable. No free fluid in the pelvis. No pathologically enlarged pelvic or right inguinal lymphadenopathy. IMPRESSION: 1. Small amount of active contrast extravasation within a likely subcutaneous hematoma with surrounding edema overlying the right greater trochanter. 2. No acute osseous abnormality. Review of Systems Review of Systems: Fall ROS unobtainable: Yes unobtainable due to medical condition ( dementia) [facility] Past Medical History Medical History (Updated 05/28/23 @ 22:03 by Dre Ramirez MD) Arthritis Chronic renal failure Dementia Hypertension Surgical History Surgical History History of hip replacement Left No history of previous surgery Family History Family History Other Diabetes mellitus Hypertension Social History Social History (Reviewed 10/22
[2023-05-28 20:02] VITALS: BP 142/68; PULSE 83; RESP 13; O2SAT 94
--- NOTE | 2023-05-28 20:04 | PC.NURSE ---
Regino wrap applied to right hip with moderate pressure.
--- NOTE | 2023-05-28 21:41 | PC.NURSE ---
Patient moved from room 19 to room 6 for boarding. Patient ripped out IV prior to move, this RN started new IV line.
[2023-05-28 22:18] VITALS: BP 137/94; PULSE 82; RESP 14; TEMP 36.8; O2SAT 99
[2023-05-28 23:59] VITALS: BP 138/74; PULSE 77; RESP 15; O2SAT 100
[2023-05-29] VITALS (29 sets, daily range): BP systolic 98–162; BP diastolic 33–56; PULSE 47–75; RESP 15–19; TEMP 36.2–37.2; O2SAT 97–100; BMI 21.0
--- NOTE | 2023-05-29 00:45 | ADMGEN ---
This patient, Jules Mitchell, was admitted to IMU Room 206-01. Patient/family oriented to hospital policies and general routines including ID bracelet, bed and alarms, visiting hours, pain management, procedures, bathroom and other care routines, personal items, smoking policy, room service/diet, and visiting hours. Information on how to activate the Rapid Response Team has been discussed. Patient/Family are encouraged to report perceived risks to care and to ask questions if they do not understand what they are told or what they should do.
[2023-05-29 05:44] LABS: MRSA (PCR) DETECTED (NOT DETECTE)
[2023-05-29] MEDS: SEVELAMER CARBONATE 800 MG TABLET 1600 MG PO ×3 (08:46→17:22)
[2023-05-29] MEDS: lisinopriL 10 MG TABLET PO (08:46)
[2023-05-29] MEDS: TAMSULOSIN HCL 0.4 MG CAPSULE PO (08:46)
[2023-05-29] MEDS: MUPIROCIN 2% OINT 22 GM TUBE 1 APPLIC EACH NARE ×2 (08:46→20:54)
[2023-05-29] MEDS: rOPINIRole HCL 0.5 MG TABLET PO (08:46)
[2023-05-29] MEDS: FUROSEMIDE 80 MG TABLET PO ×2 (08:46→17:21)
[2023-05-29] MEDS: dilTIAZem HCL 30 MG TABLET PO ×2 (08:47→17:22)
[2023-05-29] MEDS: FOLIC ACID 1 MG TABLET PO (10:11)
[2023-05-29 10:17] LABS: Eosinophils Absolute Auto 0.2 K/mm3 (0-0.3); Eosinophils Percent Auto 4.8 % (0-4.4); Hematocrit 29.3 % (42.0-52.0); Hemoglobin 9.4 g/dL (14.0-18.0); Lymphocytes Absolute Auto 1.03 K/mm3 (0.9-3.2); Lymphocytes Percent Auto 26.1 % (18.3-44.2); Mean Corpuscular HGB Conc 32.1 g/dl (32-36); Mean Corpuscular Hemoglobin 32.5 pg (26-34); Mean Corpuscular Volume 101.4 fl (80-100); Mean Platelet Volume 9.4 fl (7.4-10.4); Monocytes Absolute Auto 0.5 K/mm3 (0.1-0.6); Monocytes Percent Auto 12.2 % (2.6-8.5); Neutrophils Absolute Auto 2.2 K/mm3 (1.3-6.7); Neutrophils Percent Auto 55.9 % (45.5-73.1); Platelet Count Result 150 k/mm3 (150-375); Red Blood Count 2.89 M/mm3 (4.6-6.20)
--- NOTE | 2023-05-29 10:26 | PM.CNGS ---
Assessment and Plan Assessment and plan (1) Hematoma of right hip: Code(s): S70.01XA - Contusion of right hip, initial encounter Status: Acute Assessment and Plan: Patient with a right hip hematoma status post fall at home. He is taking Eliquis, which has been put on hold. CT of the right hip shows active contrast extravasation into the subcutaneous hematoma over the right greater trochanter. Typically, surgical intervention is reserved in this situation for a hematoma that has overlying skin necrosis or breakdown, or if the hematoma is infected. Neither of these situations are present. We would recommend to hold anticoagulation and monitor serial H/H. We have also asked nursing to wrap his right hip to his right lower leg with CHIVO wraps for compression. Will continue to monitor closely. (2) Chronic anticoagulation: Code(s): Z79.01 - long-term (current) use of anticoagulants Status: Acute Assessment and Plan: Hold Eliquis (3) End-stage renal disease on hemodialysis: Code(s): N18.6 - End stage renal disease; Z99.2 - Dependence on renal dialysis Status: Acute (4) History of atrial fibrillation: Code(s): Z86.79 - Personal history of other diseases of the circulatory system Status: Acute (5) Dementia: Code(s): F03.90 - Unspecified dementia, unspecified severity, without behavioral disturbance, psychotic disturbance, mood disturbance, and anxiety Status: Acute (6) Hypertension: Code(s): I10 - Essential (primary) hypertension Status: Chronic Plan I have discussed the patient's case and plan of care with Dr. Cristobal. Thank you for allowing us to see the patient in consultation and we will continue to follow along with you. History of Present Illness Consult details Consult date: 05/29/23 Reason for consult: other (Right hip hematoma) Requesting physician: Dre Ramirez MD Narrative: This is a 77-year-old man with dementia who we have been asked to see in surgical consultation for a right hip hematoma. He is seen in the IMU and is unable to provide any history due to dementia, therefore it is obtained by review of his electronic medical record. No family at the bedside. He was brought into the ER yesterday after a fall at home. He lives with his son. He was complaining of right hip pain and swelling. In the ER, he was found to have a right hip hematoma. He is on Eliquis, which appears to likely be for history of atrial fibrillation. CT scan of the right hip showed a small amount of active contrast extravasation within a likely subcutaneous hematoma with surrounding edema overlying the right greater trochanter. Hip and pelvis x-ray showed no fracture or dislocation of the right hip. He was admitted to the Hospitalist service and his Eliquis has been held. He also has chronic kidney disease and is on hemodialysis, therefore Nephrology was consulted. Labs showed he was anemic with a hemoglobin of 10.8 on admission. In review of his chart, his hemoglobin was around 10 during his last hospitalization about 2 years ago. Repeat labs were not done yet this morning as they had a hard time getting blood during his lab draw this morning. Nursing is attempting to have lab redraw the patient. Review of Systems Review of Systems: ROS unobtainable: Yes unobtainable due to mental status PMFSH Past Medical History Medical History Arthritis Chronic renal failure Dementia History of atrial fibrillation Hypertension Surgical History Surgical History History of hip replacement Left Family History Family History Other Diabetes mellitus Hypertension Social History Social History Smoking status: Never smoker Second hand tobacco smoke exposure: No
[2023-05-29 10:32] LABS: Alanine Aminotransferase 11 U/L (6-50); Albumin Level 4.2 g/dL (3.5-5.1); Alkaline Phosphatase 55 U/L (38-126); Anion Gap 10 mmol/L (8-16); Aspartate Amino Transferase 19 U/L (17-59); Bilirubin,Total 0.6 mg/dL (0.2-1.3); Blood Urea Nitrogen 34 mg/dL (9-20); Calcium 9.3 mg/dL (8.4-10.2); Carbon Dioxide 33 mmol/L (22-30); Chloride 93 mmol/L (98-107); Estimated CRCL calculation 6 ml/min; Estimated Glomerular Filt Rate 9; Glucose 94 mg/dL (65-110); Potassium 4.6 mmol/L (3.4-5.0); Sodium 136 mmol/L (137-145)
[2023-05-29 11:36] LABS: Hepatitis B Surface Antigen Negative (Negative)
[2023-05-29 11:58] LABS: Hepatitis B Surface Anti Res Positive
[2023-05-29] MEDS: ALBUMIN HUMAN 25% 12.5 GM/50ML 150 ML 999 GM (13:39)
[2023-05-29] MEDS: ALBUMIN HUMAN 25% 12.5 GM/50ML 50 ML IVPB (13:39)
--- NOTE | 2023-05-29 14:01 | PM.CNNEP ---
Assessment and Plan Assessment and plan (1) End stage renal disease: Code(s): N18.6 - End stage renal disease Status: Chronic Assessment and Plan: HD today continue //Fri outpatient dialysis schedule follow electrolytes, volume status, and clearance (2) Hematoma of right hip: Code(s): S70.01XA - Contusion of right hip, initial encounter Status: Acute Assessment and Plan: as noted by imaging on admission anticoagulation (Eliquis) on hold Surgery recommendations noted follow H/H (3) Hypertension: Code(s): I10 - Essential (primary) hypertension Status: Chronic Assessment and Plan: reasonable control at this time follow trend of hemodynamics (4) Anemia: Code(s): D64.9 - Anemia, unspecified Status: Chronic Assessment and Plan: due to ESRD and complicated by #2 Epogen with HD follow trend of H/H (5) Dementia: Code(s): F03.90 - Unspecified dementia, unspecified severity, without behavioral disturbance, psychotic disturbance, mood disturbance, and anxiety Status: Chronic Assessment and Plan: on no mediations for this appears stable I will continue to follow the patient with you while he remains hospitalized and make further recommendations as needed. Thank you for allowing me to participate in the care this patient. History of Present Illness Reason for Consult Consult date: 05/29/23 Reason for consult: end stage renal disease Chief Complaint Chief complaint: Traumatic Hematoma of the Hip History of Present Illness Narrative: Most of the information I have obtained is review of the electronic medical record as well as discussion with the ER physician upon his evaluation in the emergency room as the patient has dementia and is unable to provide much history at this time. The patient is a 77-year-old male with a past medical history as outlined below who presented to [facility] room for further evaluation s/p fall. The details of how the fall occurred and what happened prior to and after the fall are unclear to me and the patient, as mentioned above, is unable to delineate much of the history. However, following the fall, he complained of right hip pain and swelling. He was subsequently brought to the emergency room for further evaluation of the symptoms. Workup and evaluation in the emergency room demonstrated the patient be here in [place] is stable and in no apparent distress. Routine blood work demonstrated labs consistent with his known history of end-stage renal disease and relative stability in his hemoglobin and hematocrit. Examination the ER demonstrated a significant right hip hematoma likely complicated by the fact that he is on anticoagulation with Eliquis. Subsequent CT scan of the right hip showed a subcutaneous hematoma with surrounding edema overlying the great greater trochanter with active contrast extract position. No evidence of fracture or dislocation of the right hip was noted. Given this finding the patient was subsequently admitted to the hospital for further evaluation and therapy. Since this admission, his hemoglobin and hematocrit has dropped a bit but he otherwise appears to be hemodynamically stable. Renal consultation was requested due to his end-stage renal disease. The patient normally dialyzes on a Friday, , Friday dialysis schedule at [facility] under the care Dr. Blackman. As far as I am aware, his dialysis treatments are uneventful with relative stability in his outpatient monthly dialysis labs. Despite his advanced dementia, he tolerates his dialysis treatments reasonably well and is compliant with his treatments. His last dialysis treatment was on 05/27/23. Currently, at the time my visit, he is tolerating his dialysis treatment without any issues or problems (seen on HD at 1:50PM). [facility] Past Medical History
[2023-05-29] MEDS: EPOETIN ALFA-EPBX 10,000 UNITS/ML VIAL 10000 UNITS IV PUSH (15:02)
[2023-05-29] MEDS: SODIUM CHLORIDE 0.9% IV 1,000 ML 999 ML IV CONT (15:08)
--- NOTE | 2023-05-29 17:11 | PM.IMPN ---
Progress Note: A&P Assessment and Plan (1) Hematoma of right hip: Code(s): S70.01XA - Contusion of right hip, initial encounter Status: Acute Assessment and Plan: Patient Brought to the ED after having a fall. He is on Eliquis. 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 CT right hip showing small amount of active contrast extravasation within likely hematoma overlying the right greater trochanter General surgery consult and recommended Spicca cast which was placed. Holding anticoagulation. Monitor HH closely and transfuse as needed. (2) Lung mass: Code(s): R91.8 - Other nonspecific abnormal finding of lung field Status: Acute Assessment and Plan: CXR on admission showing 2cm nodular opacity right lung base and nonspecific haziness left lung base. Consider LLL PNA but normal WNC and no fevers CT chest recommended so will order (3) Dementia: Code(s): F03.90 - Unspecified dementia, unspecified severity, without behavioral disturbance, psychotic disturbance, mood disturbance, and anxiety Status: Acute Assessment and Plan: Patient with dementia. Not on treatment for this. He does not have a GTube currently in place. He eats normally and takes oral meds fine Follow (4) Hypertension: Code(s): I10 - Essential (primary) hypertension Status: Chronic Assessment and Plan: Patient's blood pressure was reviewed on 05/29 Blood pressure remains well controlled. Will continue to monitor. Home meds reviewed. (5) End-stage renal disease on hemodialysis: Code(s): N18.6 - End stage renal disease; Z99.2 - Dependence on renal dialysis Status: Acute Assessment and Plan: Patient with ESRD on HD. Nephrology consulted Continue HD per nephrology recommendation (6) History of atrial fibrillation: Code(s): Z86.79 - Personal history of other diseases of the circulatory system Status: Acute Assessment and Plan: Patient with pAFib. On Eliquis for stroke prophylaxis. Eliquis on hold Monitor Plan DVT prophylaxis - SCDs Code status - full Subjective Date/time seen: 05/29/23 17:11 Interval history: 77yo male with ESRD, dementia, AFib on anticoagulation and HTN here for fall Patient alert but confused and so hx unreliable. Review of Systems Review of Systems: ROS unobtainable: Yes unobtainable due to mental status Exam Narrative: AF 98.9 142/43 70 16 100% ra Gen - NARD currently undergoing HD Chest - clear to quiet respirations CV - RRR S1/S2. Tele showing PVCs Abd - Soft, ND, +BS, ND Ext - right upper leg CHIVO wrapped. Left upper arm accessed for HD Neuro - Alert, confused Psych - calm, follows commands intermittently Skin - Warm and dry Objective Data Vital Signs Vital Signs: Vital Signs - 24 hr 05/28/23 17:27 05/28/23 20:02 05/28/23 22:18 Temperature 97.5 F L 98.3 F Pulse Rate 68 83 82 Respiratory Rate 18 13 14 Blood Pressure 142/68 H 137/94 H Pulse Oximetry 99 94 99 Oxygen Delivery 05/28/23 23:59 05/29/23 00:25 05/29/23 02:00 Temperature 98.0 F Pulse Rate 77 68 64 Respiratory Rate 15 15 Blood Pressure 138/74 162/43 H Pulse Oximetry 100 97 Oxygen Delivery 05/29/23 00:15 05/29/23 04:00 05/29/23 04:00 Temperature Pulse Rate 68 64 64 Respiratory Rate 15 Blood Pressure Pulse Oximetry 97 Oxygen Delivery Room Air 05/29/23 04:47 05/29/23 06:00 05/29/23 08:00 Temperature 97.4 F L 98.3 F Pulse Rate 66 70 74 Respiratory Rate 15 16 Blood Pressure 145/42 H 101/33 L Pulse Oximetry 99 100 Oxygen Delivery 05/29/23 08:00 05/29/23 08:00 05/29/23 10:00 Temperature Pulse Rate 74 59 L Respiratory Rate Blood Pressure Pulse Oximetry Oxygen Delivery Room Air 05/29/23 11:01 05/29/23 12:0
[2023-05-29 19:02] LABS: Hematocrit 27.8 % (42.0-52.0); Hemoglobin 8.9 g/dL (14.0-18.0)
[2023-05-29] MEDS: ATORVASTATIN 20 MG TABLET PO (20:54)
[2023-05-29] MEDS: allopurinoL 100 MG TABLET PO (20:54)
[2023-05-30] VITALS (13 sets, daily range): BP systolic 126–141; BP diastolic 32–47; PULSE 52–72; RESP 14–16; TEMP 36.2–37.1; O2SAT 94–100
[2023-05-30 01:27] LABS: Hematocrit 25.6 % (42.0-52.0); Hemoglobin 8.2 g/dL (14.0-18.0)
[2023-05-30 07:54] LABS: Hematocrit 29.2 % (42.0-52.0); Hemoglobin 8.5 g/dL (14.0-18.0); Immature Platelet Fraction Pct 3.1 % (0.9-11.2); Mean Corpuscular HGB Conc 29.1 g/dl (32-36); Mean Corpuscular Hemoglobin 33.1 pg (26-34); Mean Corpuscular Volume 113.6 fl (80-100); Mean Platelet Volume 10.5 fl (7.4-10.4); Platelet Count Result 113 k/mm3 (150-375); Red Blood Count 2.57 M/mm3 (4.6-6.20); Red Cell Distribution Width 14.2 % (11.5-14.5); White Blood Count 3.2 K/mm3 (4.5-10.0)
--- NOTE | 2023-05-30 08:13 | WPDPN ---
Progress Note: A&P Assessment and Plan (1) Hematoma of right hip: Code(s): S70.01XA - Contusion of right hip, initial encounter Status: Acute Assessment and Plan: Continue to hold systemic anticoagulation for now. No need for surgery as there is no evidence of cellulitis or infection of the hematoma at this time. Okay that ambulate with assistance. Will need PT and OT evaluation to make sure he is safe in his home situation to ambulate. Otherwise from a general surgery standpoint he may discharge at discretion of primary service. When he does discharge will have him come back to the office to see me to follow-up on the hematoma in 2 weeks. Subjective Date/time seen: 05/30/23 08:13 Interval history: Patient without acute changes clinically. Having some pain in the right lateral hip and right thigh region. Hemoglobin is stable. Exam Skin: Other: Right thigh with some ecchymosis over the hematoma. This area is not tense and the the tone was mildly tender. There is no drainage or spreading redness to suggest cellulitis of the skin or infection of the hematoma. Objective Data Vital Signs Vital Signs: Vital Signs - 24 hr 05/29/23 10:00 05/29/23 11:01 05/29/23 12:00 Temperature 37.2 C Pulse Rate 59 L 64 Respiratory Rate 16 Blood Pressure 98/34 L 127/40 L Pulse Oximetry 100 Oxygen Delivery 05/29/23 12:00 05/29/23 12:00 05/29/23 13:09 Temperature 36.9 C Pulse Rate 64 49 L 60 Respiratory Rate 16 16 Blood Pressure 119/39 L Pulse Oximetry 100 Oxygen Delivery Room Air 05/29/23 13:27 05/29/23 14:45 05/29/23 13:45 Temperature Pulse Rate 67 59 L 60 Respiratory Rate Blood Pressure 109/44 L 103/49 L 102/40 L Pulse Oximetry Oxygen Delivery 05/29/23 14:00 05/29/23 14:15 05/29/23 14:30 Temperature Pulse Rate 59 L 62 54 L Respiratory Rate Blood Pressure 133/43 L 136/50 L 121/46 L Pulse Oximetry Oxygen Delivery 05/29/23 15:00 05/29/23 15:16 05/29/23 15:30 Temperature Pulse Rate 55 L 63 54 L Respiratory Rate Blood Pressure 122/45 L 128/56 L 130/40 L Pulse Oximetry Oxygen Delivery 05/29/23 16:00 05/29/23 16:00 05/29/23 16:00 Temperature 37.2 C Pulse Rate 70 49 L Respiratory Rate 16 Blood Pressure 142/43 H Pulse Oximetry 100 Oxygen Delivery Room Air 05/29/23 17:58 05/29/23 15:45 05/29/23 16:40 Temperature 37.0 C Pulse Rate 75 67 67 Respiratory Rate 16 Blood Pressure 122/52 L 136/51 L Pulse Oximetry Oxygen Delivery 05/29/23 16:00 05/29/23 16:15 05/29/23 16:32 Temperature Pulse Rate 59 L 47 L 62 Respiratory Rate Blood Pressure 110/46 L 110/46 L 110/46 L Pulse Oximetry Oxygen Delivery 05/29/23 20:00 05/29/23 20:00 05/29/23 20:00 Temperature 36.2 C L Pulse Rate 64 72 72 Respiratory Rate 19 19 Blood Pressure 121/41 L Pulse Oximetry 100 100 Oxygen Delivery Room Air 05/29/23 22:00 05/29/23 23:41 05/30/23 00:00 Temperature 36.6 C Pulse Rate 74 66 61 Respiratory Rate 16 Blood Pressure 131/42 L Pulse Oximetry 100 Oxygen Delivery 05/30/23 00:00 05/30/23 05:18 05/30/23 02:00 Temperature 36.2 C L Pulse Rate 61 60 58 L Respiratory Rate 16 16 Blood Pressure 131/47 L Pulse Oximetry 100 100 Oxygen Delivery Room Air 05/30/23 04:00 05/30/23 04:00 05/30/23 05:34 Temperature Pulse Rate 56 L 56 L 66 Respiratory Rate 16 Blood Pressure Pulse Oximetry 100 Oxygen Delivery Room Air Intake/Output Intake/Output: Intake & Output 05/27/23 05/28/23 05/29/23 05/30/23 23:59 23:59 23:59 23:59 Intake Total 720 Output Total 1050 0 Balance -330 0 Meds/Results Medications: Active Medications Generic Name Dose Route Start Last Admin Trade Name Freq PRN Reason Stop Dose Admin Acetaminophen 650 mg 05/28/23 19:55 Acetaminophen 325 Mg Tablet PO Q4H PRN Mild Pain (1-3) or Fever Hydrocodon
[2023-05-30] MEDS: FUROSEMIDE 80 MG TABLET PO ×2 (08:55→16:21)
[2023-05-30] MEDS: lisinopriL 10 MG TABLET PO (08:55)
[2023-05-30] MEDS: TAMSULOSIN HCL 0.4 MG CAPSULE PO (08:55)
[2023-05-30] MEDS: FOLIC ACID 1 MG TABLET PO (08:55)
[2023-05-30] MEDS: dilTIAZem HCL 30 MG TABLET PO ×3 (08:56→16:21)
[2023-05-30] MEDS: SEVELAMER CARBONATE 800 MG TABLET 1600 MG PO ×3 (08:56→16:21)
[2023-05-30] MEDS: MUPIROCIN 2% OINT 22 GM TUBE 1 APPLIC EACH NARE ×2 (09:00→21:01)
[2023-05-30 09:49] LABS: Albumin Level 3.6 g/dL (3.5-5.1); Anion Gap 4 mmol/L (8-16); Blood Urea Nitrogen 16 mg/dL (9-20); Calcium 9.2 mg/dL (8.4-10.2); Carbon Dioxide 30 mmol/L (22-30); Chloride 104 mmol/L (98-107); Estimated CRCL calculation 11 ml/min; Estimated Glomerular Filt Rate 19; Glucose 81 mg/dL (65-110); Phosphorus 3.2 mg/dL (2.5-4.5); Potassium 4.3 mmol/L (3.4-5.0); Sodium 138 mmol/L (137-145)
[2023-05-30 09:56] LABS: Iron 50 ug/dL (49-181)
[2023-05-30 10:07] LABS: Percent Iron Saturation 36 % (20-50)
[2023-05-30 12:07] LABS: Folic Acid > 20.0 ng/mL (2.76->20)
--- NOTE | 2023-05-30 14:21 | PM.IMPN ---
Progress Note: A&P Assessment and Plan (1) Hematoma of right hip: Code(s): S70.01XA - Contusion of right hip, initial encounter Status: Acute Assessment and Plan: Patient brought to the ED after having a fall. He is on Eliquis. 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 CT right hip showing small amount of active contrast extravasation within likely hematoma overlying the right greater trochanter General surgery consulted and recommended CHIVO wrap. Holding anticoagulation. HH remaining low but stable. Surgery felt okay to start therapy. Order PT/OT Monitor HH closely and transfuse as needed. (2) Lung mass: Code(s): R91.8 - Other nonspecific abnormal finding of lung field Status: Acute Assessment and Plan: CXR on admission showing 2cm nodular opacity right lung base and nonspecific haziness left lung base. CT chest showing dependent and peripheral predominant linear and reticular opaciteis bilaterally to suggest chronic PNA No mass noted. Chronic PNA may be related to hx of aspiration. (3) Dementia: Code(s): F03.90 - Unspecified dementia, unspecified severity, without behavioral disturbance, psychotic disturbance, mood disturbance, and anxiety Status: Chronic Assessment and Plan: Patient with dementia. Not on treatment for this. He does not have a GTube currently in place. He eats normally and takes oral meds fine Follow (4) Hypertension: Code(s): I10 - Essential (primary) hypertension Status: Chronic Assessment and Plan: Patient's blood pressure was reviewed on 2/2 Blood pressure remains well controlled. Will continue to monitor. (5) End-stage renal disease on hemodialysis: Code(s): N18.6 - End stage renal disease; Z99.2 - Dependence on renal dialysis Status: Acute Assessment and Plan: Patient with ESRD on HD. CT showing possible osteodystrophy Nephrology consulted Continue HD per nephrology recommendation (6) History of atrial fibrillation: Code(s): Z86.79 - Personal history of other diseases of the circulatory system Status: Acute Assessment and Plan: Patient with pAFib. On Eliquis for stroke prophylaxis. Eliquis on hold Monitor (7) Anemia: Code(s): D64.9 - Anemia, unspecified Status: Chronic Assessment and Plan: Hgb was 10.8 on admission but dropped to 8 range and remaining stable. B12 low at 236 and folate normal. Iron studies normal except TIBC 138. CT chest showing increased density of the liver most typically seen with hemochromatosis or Amiodarone use. Not on iron replacement on admission. Also noted to have pancytopenia. TCP could be from low B12 level. Consider viral illness Replace B12. Plan DVT prophylaxis - SCDs Code status - full Subjective Date/time seen: 05/30/23 14:21 Interval history: 77yo male with ESRD, dementia, AFib on anticoagulation and HTN here for fall Patient alert but confused and so hx unreliable. Review of Systems Review of Systems: ROS unobtainable: Yes unobtainable due to mental status Exam Narrative: AF 97.8 141/32 69 16 94% ra Gen - NARD Chest - clear to quiet respirations CV - RRR S1/S2. Tele showing frequent PVCs Abd - Soft, ND, +BS, ND Ext - right upper leg CHIVO wrapped. Left upper arm thrill and bruit Neuro - Alert, confused Psych - calm, follows commands intermittently Skin - Warm and dry Objective Data Vital Signs Vital Signs: Vital Signs - 24 hr 05/29/23 14:45 05/29/23 14:30 05/29/23 15:00 Temperature Pulse Rate 59 L 54 L 55 L Respiratory Rate Blood Pressure 103/49 L 121/46 L 122/45 L Pulse Oximetry Oxygen Delivery 05/29/23 15:16 05/29/23 15:30 05/29/23 16:00 Temperature 98.9 F Pulse Rate 63 54 L 70 Respiratory Rate 16
[2023-05-30] MEDS: CYANOCOBALAMIN INJ 1,000 MCG/ML VIAL 1000 MCG IM (15:37)
--- NOTE | 2023-05-30 16:17 | PC.NURSE ---
This patient was received from IMU room 232 at 16:15 into room 312. Pt. in bed with alarms on at this time. Plan of care continues.
--- NOTE | 2023-05-30 16:19 | PM.PNNEP ---
Progress Note: A&P Assessment and Plan (1) End stage renal disease: Code(s): N18.6 - End stage renal disease Status: Chronic Assessment and Plan: HD tomorrow continue //Fri outpatient dialysis schedule follow electrolytes, volume status, and clearance (2) Hematoma of right hip: Code(s): S70.01XA - Contusion of right hip, initial encounter Status: Acute Assessment and Plan: as noted by imaging on admission anticoagulation (Eliquis) on hold Surgery recommendations noted follow trend of H/H (3) Hypertension: Code(s): I10 - Essential (primary) hypertension Status: Chronic Assessment and Plan: reasonable control at this time follow trend of hemodynamics (4) Anemia: Code(s): D64.9 - Anemia, unspecified Status: Chronic Assessment and Plan: due to ESRD and complicated by #2 Epogen with HD follow trend of H/H (5) Dementia: Code(s): F03.90 - Unspecified dementia, unspecified severity, without behavioral disturbance, psychotic disturbance, mood disturbance, and anxiety Status: Chronic Assessment and Plan: on no mediations for this appears stable Will continue to follow. Subjective Date/time seen: 05/30/23 16:19 Interval history: Follow-up for end stage renal disease on hemodialysis. Tolerated dialysis treatment yesterday without any issues or problems; no apparent distress voiced at the time of my visit (although his underlying dementia limits true assessment); no events overnight or earlier this AM. Exam Narrative: General: elderly male in NAD Heart: normal S1 and S2; no rub Lungs: clear anteriorly Abdomen: soft, nontender, nondistended, positive bowel sounds Extremities: no cyanosis or clubbing; no edema; right upper leg in CHIVO wraps Skin: warm and dry Objective Data Vital Signs Vital Signs: Vital Signs Temp Pulse Resp BP Pulse Ox O2 Del Method 05/30/23 16:09 98.5 F 52 L 16 129/33 L 100 Room Air 05/30/23 12:00 72 05/30/23 11:46 97.8 F 69 16 141/32 H 94 05/30/23 10:00 70 05/30/23 08:00 65 05/30/23 08:00 Room Air 05/30/23 08:07 98.7 F 65 14 126/37 L 99 05/30/23 05:34 66 05/30/23 04:00 56 L 16 100 Room Air 05/30/23 04:00 56 L 05/30/23 02:00 58 L 05/30/23 05:18 97.2 F L 60 16 131/47 L 100 05/30/23 00:00 61 16 100 Room Air 05/30/23 00:00 61 05/29/23 23:41 97.8 F 66 16 131/42 L 100 05/29/23 22:00 74 05/29/23 20:00 72 19 100 Room Air 05/29/23 20:00 72 05/29/23 20:00 97.1 F L 64 19 121/41 L 100 05/29/23 17:58 75 Intake/Output Intake/Output: Intake & Output 05/27/23 05/28/23 05/29/23 05/30/23 23:59 23:59 23:59 23:59 Intake Total 720 360 Output Total 1050 0 Balance -330 360 Meds/Results Medications: Active Medications Generic Name Dose Route Start Last Admin Trade Name Freq PRN Reason Stop Dose Admin Acetaminophen 650 mg 05/28/23 19:55 Acetaminophen 325 Mg Tablet PO Q4H PRN Mild Pain (1-3) or Fever Hydrocodone Bitart/Acetaminophen 1 tab 05/28/23 19:55 Hydrocodone/Acetaminophen (*Crx) 5-325 Mg Tablet PO Q4H PRN Pain Rated 4-6 Allopurinol 100 mg 05/29/23 21:00 05/29/23 20:54 Allopurinol 100 Mg Tablet PO 100 mg HS LOKESH Administration Atorvastatin Calcium 20 mg 05/29/23 21:00 05/29/23 20:54 Atorvastatin 20 Mg Tablet PO 20 mg HS LOKESH Administration Cyanocobalamin 1,000 mcg 05/31/23 09:00 Cyanocobalamin 1,000 Mcg Tablet PO QAM LOKESH Diltiazem HCl 30 mg 05/29/23 09:00 05/30/23 16:21 Diltiazem Hcl 30 Mg Tablet PO 30 mg TID LOKESH Administration Folic Acid 1 mg 05/29/23 09:00 05/30/23 08:55 Folic Acid 1 Mg Tablet PO 1 mg DAILY LOKESH Administration Furosemide 80 mg 05/29/23 09:00 05/30/23 16:21 Furosemide 80 Mg T
--- NOTE | 2023-05-30 16:19 | PC.NURSE ---
This patient, Jules Mitchell, was transferred to [facility] on 05/30/23 at 1608. Personal belongings sent with patient. Report given to Irina CALDERÓN. Appropriate documentation sent with patient.
[2023-05-30 16:21] LABS: Influenza A QL RT-PCR Negative (Negative); Influenza B QL RT-PCR Negative (Negative); RSV RNA, RT-PCR Negative (Negative); SARS-CoV-2 RNA PCR Negative (Negative)
[2023-05-30] MEDS: ATORVASTATIN 20 MG TABLET PO (21:00)
[2023-05-30] MEDS: levETIRAcetam ORAL SOL 500 MG/5 ML UDC PO (21:00)
[2023-05-30] MEDS: allopurinoL 100 MG TABLET PO (21:00)
[2023-05-31] VITALS (21 sets, daily range): BP systolic 102–168; BP diastolic 19–86; PULSE 43–67; RESP 16–20; TEMP 36–37; O2SAT 100
[2023-05-31 07:25] LABS: Basophils Percent Auto 0.5 % (0.2-1.2); Eosinophils Absolute Auto 0.2 K/mm3 (0-0.3); Eosinophils Percent Auto 5.9 % (0-4.4); Hematocrit 27.7 % (42.0-52.0); Hemoglobin 8.1 g/dL (14.0-18.0); Immature Granulocyte Absolute 0.02 K/mm3 (0.00-0.031); Immature Granulocyte Percent A 0.5 % (0-0.5); Immature Platelet Fraction Pct 4.1 % (0.9-11.2); Lymphocytes Absolute Auto 1.33 K/mm3 (0.9-3.2); Lymphocytes Percent Auto 32.7 % (18.3-44.2); Mean Corpuscular HGB Conc 29.2 g/dl (32-36); Mean Corpuscular Hemoglobin 32.4 pg (26-34); Mean Corpuscular Volume 110.8 fl (80-100); Mean Platelet Volume 11.1 fl (7.4-10.4); Monocytes Absolute Auto 0.6 K/mm3 (0.1-0.6); Monocytes Percent Auto 14.5 % (2.6-8.5); Neutrophils Absolute Auto 1.9 K/mm3 (1.3-6.7); Neutrophils Percent Auto 45.9 % (45.5-73.1); Platelet Count Result 79 k/mm3 (150-375); White Blood Count 4.1 K/mm3 (4.5-10.0)
[2023-05-31 09:05] LABS: Anisocytosis 1+ (NORMAL); Hypochromasia 1+ (NORMAL); Platelet Estimate Decreased (Adequate); Schistocytes None Seen (NORMAL)
[2023-05-31 09:23] LABS: Anion Gap 8 mmol/L (8-16); Blood Urea Nitrogen 35 mg/dL (9-20); Calcium 9.1 mg/dL (8.4-10.2); Carbon Dioxide 27 mmol/L (22-30); Chloride 101 mmol/L (98-107); Estimated CRCL calculation 6 ml/min; Estimated Glomerular Filt Rate 10; Glucose 94 mg/dL (65-110); Lactate Dehydrogenase 162 U/L (120-246); Magnesium 2.4 mg/dL (1.6-2.3); Phosphorus 3.3 mg/dL (2.5-4.5); Potassium 4.5 mmol/L (3.4-5.0); Sodium 136 mmol/L (137-145)
[2023-05-31] MEDS: levETIRAcetam ORAL SOL 500 MG/5 ML UDC PO ×2 (10:35→20:43)
[2023-05-31] MEDS: CYANOCOBALAMIN 1,000 MCG TABLET 1000 MCG PO (10:35)
[2023-05-31] MEDS: FOLIC ACID 1 MG TABLET PO (10:35)
[2023-05-31] MEDS: TAMSULOSIN HCL 0.4 MG CAPSULE PO (10:35)
[2023-05-31] MEDS: MUPIROCIN 2% OINT 22 GM TUBE 1 APPLIC EACH NARE ×2 (10:36→20:44)
[2023-05-31] MEDS: SEVELAMER CARBONATE 800 MG TABLET 1600 MG PO ×3 (10:36→18:16)
[2023-05-31] MEDS: rOPINIRole HCL 0.5 MG TABLET PO (10:37)
[2023-05-31] MEDS: polyethylene glycoL 3350 17 GM POWD.PACK PO (10:37)
[2023-05-31] MEDS: ACETAMINOPHEN 325 MG TABLET 650 MG PO (10:38)
--- NOTE | 2023-05-31 12:03 | PM.PNNEP ---
Progress Note: A&P Assessment and Plan (1) End stage renal disease: Code(s): N18.6 - End stage renal disease Status: Chronic Assessment and Plan: HD later today volume status looks okay potassium and bicarbonate are okay. (2) Hematoma of right hip: Code(s): S70.01XA - Contusion of right hip, initial encounter Status: Acute Assessment and Plan: as noted by imaging on admission anticoagulation (Eliquis) on hold Surgery recommendations noted Hemoglobin wandering in the 8-9 range (3) Hypertension: Code(s): I10 - Essential (primary) hypertension Status: Chronic Assessment and Plan: systolic ranging in the 110-140 range. follow trend of hemodynamics (4) Anemia: Code(s): D64.9 - Anemia, unspecified Status: Chronic Assessment and Plan: due to ESRD and complicated by #2 Epogen with HD follow trend of H/H (5) Dementia: Code(s): F03.90 - Unspecified dementia, unspecified severity, without behavioral disturbance, psychotic disturbance, mood disturbance, and anxiety Status: Chronic Assessment and Plan: on no mediations for this appears stable Will continue to follow. Subjective Date/time seen: 05/31/23 12:03 Interval history: Patient is in bed. He is comfortable. No chest pain or shortness of breath Exam Narrative: General: elderly male in NAD Heart: normal S1 and S2; no rub or gallop Lungs: clear bilaterally Abdomen: soft, nontender, nondistended, positive bowel sounds Extremities: no cyanosis or clubbing; no edema; right upper leg in CHIVO wraps Skin: no rash Objective Data Vital Signs Vital Signs: Vital Signs - 24 hr 05/30/23 14:00 05/30/23 16:27 05/30/23 16:29 Temperature 98.5 F Pulse Rate 64 52 L Respiratory Rate 16 Blood Pressure 129/33 L Pulse Oximetry 100 Oxygen Delivery Room Air 05/30/23 21:42 05/30/23 21:00 05/31/23 06:00 Temperature 97.2 F L 96.8 F L Pulse Rate 59 L 64 Respiratory Rate 14 16 Blood Pressure 132/40 L 115/48 L Pulse Oximetry 100 100 Oxygen Delivery Room Air Intake/Output Intake/Output: Intake & Output 05/28/23 05/29/23 05/30/23 05/31/23 23:59 23:59 23:59 23:59 Intake Total 770 600 118 Output Total 1050 0 Balance -280 600 118 Meds/Results Medications: Active Medications Generic Name Dose Route Start Last Admin Trade Name Padmini PRN Reason Stop Dose Admin Acetaminophen 650 mg 05/28/23 19:55 05/31/23 10:38 Acetaminophen 325 Mg Tablet PO 650 mg Q4H PRN Administration Mild Pain (1-3) or Fever Hydrocodone Bitart/Acetaminophen 1 tab 05/28/23 19:55 Hydrocodone/Acetaminophen (*Crx) 5-325 Mg Tablet PO Q4H PRN Pain Rated 4-6 Allopurinol 100 mg 05/29/23 21:00 05/30/23 21:00 Allopurinol 100 Mg Tablet PO 100 mg HS LOKESH Administration Atorvastatin Calcium 20 mg 05/29/23 21:00 05/30/23 21:00 Atorvastatin 20 Mg Tablet PO 20 mg HS LOKESH Administration Cyanocobalamin 1,000 mcg 05/31/23 09:00 05/31/23 10:35 Cyanocobalamin 1,000 Mcg Tablet PO 1,000 mcg QAM LOKESH Administration Diltiazem HCl 30 mg 05/29/23 09:00 05/30/23 16:21 Diltiazem Hcl 30 Mg Tablet PO 30 mg TID LOKESH Administration Epoetin Bacilio-epbx 10,000 units 05/31/23 20:00 Epoetin Bacilio-Epbx 10,000 Units/Ml Vial IV PUSH 05/31/23 20:01 ONCE ONE Folic Acid 1 mg 05/29/23 09:00 05/31/23 10:35 Folic Acid 1 Mg Tablet PO 1 mg DAILY LOKESH Administration Furosemide 80 mg 05/29/23 09:00 05/30/23 16:21 Furosemide 80 Mg Tablet PO 80 mg BID LOKESH Administration Albumin Human 50 mls @ 999 mls/hr 05/29/23 06:26 05/29/23 13:45 Albutein IVPB 06/28/23 06:25 Infused Q10M PRN Infusion HYPOTENSION Levetiracetam 500 mg 05/30/23 21:00 05/31/23 10:35 Levetiracetam Oral Caitlyn 500 Mg/5 Ml Udc PO 500 mg Q12HR LOKESH Administration
--- NOTE | 2023-05-31 12:28 | WPDPN ---
Progress Note: A&P Assessment and Plan (1) Hematoma of right hip: Code(s): S70.01XA - Contusion of right hip, initial encounter Status: Acute Assessment and Plan: Right hip and right thigh area of hematoma is getting softer. There is no evidence of skin compromise and no evidence of cellulitis or infection of the hematoma. Patient may be discharged at discretion of primary team and Nephrology. Surgery will be available p.r.n.. Subjective Date/time seen: 05/31/23 12:28 Interval history: Patient appears to clinically stable regards to his right hip and thigh hematoma. He is sitting up eating this morning. Exam Skin: Other: Right hip and lateral right thigh softer. Superficial skin changes of ecchymosis. No evidence of skin necrosis or cellulitis. Objective Data Vital Signs Vital Signs: Vital Signs - 24 hr 05/30/23 14:00 05/30/23 16:27 05/30/23 16:29 Temperature 36.9 C Pulse Rate 64 52 L Respiratory Rate 16 Blood Pressure 129/33 L Pulse Oximetry 100 Oxygen Delivery Room Air 05/30/23 21:42 05/30/23 21:00 05/31/23 06:00 Temperature 36.2 C L 36.0 C L Pulse Rate 59 L 64 Respiratory Rate 14 16 Blood Pressure 132/40 L 115/48 L Pulse Oximetry 100 100 Oxygen Delivery Room Air 05/31/23 08:00 Temperature Pulse Rate Respiratory Rate Blood Pressure Pulse Oximetry Oxygen Delivery Room Air Intake/Output Intake/Output: Intake & Output 05/28/23 05/29/23 05/30/23 05/31/23 23:59 23:59 23:59 23:59 Intake Total 770 600 118 Output Total 1050 0 Balance -280 600 118 Meds/Results Medications: Active Medications Generic Name Dose Route Start Last Admin Trade Name Freq PRN Reason Stop Dose Admin Acetaminophen 650 mg 05/28/23 19:55 05/31/23 10:38 Acetaminophen 325 Mg Tablet PO 650 mg Q4H PRN Administration Mild Pain (1-3) or Fever Hydrocodone Bitart/Acetaminophen 1 tab 05/28/23 19:55 Hydrocodone/Acetaminophen (*Crx) 5-325 Mg Tablet PO Q4H PRN Pain Rated 4-6 Allopurinol 100 mg 05/29/23 21:00 05/30/23 21:00 Allopurinol 100 Mg Tablet PO 100 mg HS LOKESH Administration Atorvastatin Calcium 20 mg 05/29/23 21:00 05/30/23 21:00 Atorvastatin 20 Mg Tablet PO 20 mg HS LOKESH Administration Cyanocobalamin 1,000 mcg 05/31/23 09:00 05/31/23 10:35 Cyanocobalamin 1,000 Mcg Tablet PO 1,000 mcg QAM LOKESH Administration Diltiazem HCl 30 mg 05/29/23 09:00 05/30/23 16:21 Diltiazem Hcl 30 Mg Tablet PO 30 mg TID LOKESH Administration Epoetin Bacilio-epbx 10,000 units 05/31/23 20:00 Epoetin Bacilio-Epbx 10,000 Units/Ml Vial IV PUSH 05/31/23 20:01 ONCE ONE Folic Acid 1 mg 05/29/23 09:00 05/31/23 10:35 Folic Acid 1 Mg Tablet PO 1 mg DAILY LOKESH Administration Furosemide 80 mg 05/29/23 09:00 05/30/23 16:21 Furosemide 80 Mg Tablet PO 80 mg BID LOKESH Administration Albumin Human 50 mls @ 999 mls/hr 05/29/23 06:26 05/29/23 13:45 Albutein IVPB 06/28/23 06:25 Infused Q10M PRN Infusion HYPOTENSION Levetiracetam 500 mg 05/30/23 21:00 05/31/23 10:35 Levetiracetam Oral Caitlyn 500 Mg/5 Ml Udc PO 500 mg Q12HR LOKESH Administration Lorazepam 0.5 mg 05/29/23 07:51 Lorazepam (*Crx) 0.5 Mg Tablet PO BID PRN Anxiety Morphine Sulfate 2 mg 05/28/23 19:55 Morphine Sulfate (*Crx) 2 Mg/Ml Inj IV PUSH Q2H PRN Pain Rated 7-10 Mupirocin 1 applic 05/29/23 09:00 05/31/23 10:36 Mupirocin 2% Oint 22 Gm Tube EACH NARE 06/03/23 09:00 1 applic Q12HR LOKESH Administration Ondansetron HCl 4 mg 05/28/23 19:55 Ondansetron Inj 4 Mg/2 Ml Vial IV PUSH Q4H PRN Nausea Polyethylene Glycol 17 gm 05/29/23 07:51 05/31/23 10:37 Polyethylene Glycol 3350 17 Gm Powd.Pack PO 17 gm QAM PRN Administration Constipation Ropinirole HCl 0.5 mg 05/29/23 09:00 05/31/23 10:37 Ropinirole Hcl 0.5 Mg Tablet PO 0.5 mg [email or web address]
--- NOTE | 2023-05-31 13:23 | PCOTNOTE ---
Attempted to see pt for occupational therapy treatment. Pt is currently eating lunch at this time. Will attempt at a later time.
--- NOTE | 2023-05-31 14:00 | PC.NURSE ---
Pt was transferred to dialysis room.
--- NOTE | 2023-05-31 16:21 | PM.IMPN ---
Progress Note: A&P Assessment and Plan (1) Hematoma of right hip: Code(s): S70.01XA - Contusion of right hip, initial encounter Status: Acute Assessment and Plan: Patient brought to the ED after having a fall. He is on Eliquis. 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 CT right hip showing small amount of active contrast extravasation within likely hematoma overlying the right greater trochanter General surgery consulted and recommended CHIVO wrap. Holding anticoagulation. HH remaining low but stable. Surgery felt okay to start therapy so PT/OT ordered Monitor HH closely and transfuse as needed. (2) Lung mass: Code(s): R91.8 - Other nonspecific abnormal finding of lung field Status: Acute Assessment and Plan: CXR on admission showing 2cm nodular opacity right lung base and nonspecific haziness left lung base. CT chest showing dependent and peripheral predominant linear and reticular opacities bilaterally to suggest chronic PNA No lung mass noted. Chronic PNA may be related to hx of aspiration. (3) Dementia: Code(s): F03.90 - Unspecified dementia, unspecified severity, without behavioral disturbance, psychotic disturbance, mood disturbance, and anxiety Status: Chronic Assessment and Plan: Patient with dementia. Not on treatment for this. He does not have a GTube currently in place. He eats normally and takes oral meds fine Follow (4) Hypertension: Code(s): I10 - Essential (primary) hypertension Status: Chronic Assessment and Plan: Patient's blood pressure was reviewed on 2/3 Blood pressure remains well controlled. Will continue to monitor. (5) End-stage renal disease on hemodialysis: Code(s): N18.6 - End stage renal disease; Z99.2 - Dependence on renal dialysis Status: Acute Assessment and Plan: Patient with ESRD on HD. CT showing possible osteodystrophy Nephrology consulted Continue HD per nephrology recommendation (6) History of atrial fibrillation: Code(s): Z86.79 - Personal history of other diseases of the circulatory system Status: Acute Assessment and Plan: Patient with pAFib. On Eliquis for stroke prophylaxis. Eliquis on hold Discussed case with family regarding the pros and cons about Eliquis and they will think about if we should restart this or if the risk of falls too great. Continue to hold Eliquis. Monitor (7) Anemia: Code(s): D64.9 - Anemia, unspecified Status: Chronic Assessment and Plan: Hgb was 10.8 on admission but dropped to 8 range and remaining stable. B12 low at 236 and folate normal. Iron studies normal except TIBC 138. CT chest showing increased density of the liver most typically seen with hemochromatosis or Amiodarone use. Not on iron replacement on admission. Not on Amio currently Also noted to have pancytopenia. TCP could be from low B12 level. Consider viral illness but COVID/RSV/Influenza PCR negative B12 replacement ordered. Plan DVT prophylaxis - SCDs Code status - full Disposition - late HD so will discharge home tomorrow morning Subjective Date/time seen: 05/31/23 16:21 Interval history: 77yo male with ESRD, dementia, AFib on anticoagulation and HTN here for fall Patient alert but confused and so hx unreliable. Review of Systems Review of Systems: ROS unobtainable: Yes unobtainable due to mental status Exam Narrative: AF 96.8 102/38 54 20 100% ra Gen - NARD sitting up in bed undergoing HD Chest - clear anteriorly to quiet respirations CV - RRR S1/S2 Abd - Soft, ND, +BS, ND Ext - Left upper arm accessed. No pedal edema Neuro - Alert, confused Psych - calm, follows commands intermittently Skin - Warm and dry Objective Data Vital Signs Vital Signs: Vital Signs - 2
[2023-05-31] MEDS: EPOETIN ALFA-EPBX 10,000 UNITS/ML VIAL 10000 UNITS IV PUSH (17:30)
[2023-05-31] MEDS: dilTIAZem HCL 30 MG TABLET PO (18:16)
[2023-05-31] MEDS: ATORVASTATIN 20 MG TABLET PO (20:43)
[2023-05-31] MEDS: allopurinoL 100 MG TABLET PO (20:44)
[2023-05-31] MEDS: FUROSEMIDE 80 MG TABLET PO (20:44)
[2023-06-01 05:58] VITALS: BP 117/43; PULSE 62; RESP 18; TEMP 36.4; O2SAT 100
[2023-06-01 07:24] LABS: Hemoglobin 9.4 g/dL (14.0-18.0); Mean Corpuscular HGB Conc 30.3 g/dl (32-36); Mean Corpuscular Volume 105.4 fl (80-100); Mean Platelet Volume 9.7 fl (7.4-10.4); Platelet Count Result 151 k/mm3 (150-375); Red Blood Count 2.94 M/mm3 (4.6-6.20); Red Cell Distribution Width 14.2 % (11.5-14.5); White Blood Count 3.9 K/mm3 (4.5-10.0)
[2023-06-01 07:28] LABS: Anion Gap 6 mmol/L (8-16); Blood Urea Nitrogen 15 mg/dL (9-20); Calcium 9.4 mg/dL (8.4-10.2); Carbon Dioxide 26 mmol/L (22-30); Chloride 104 mmol/L (98-107); Estimated CRCL calculation 10 ml/min; Estimated Glomerular Filt Rate 17; Glucose 93 mg/dL (65-110); Phosphorus 2.3 mg/dL (2.5-4.5); Potassium 4.5 mmol/L (3.4-5.0); Sodium 136 mmol/L (137-145)
[2023-06-01] MEDS: CYANOCOBALAMIN 1,000 MCG TABLET 1000 MCG PO (08:56)
[2023-06-01] MEDS: FUROSEMIDE 80 MG TABLET PO (08:56)
[2023-06-01] MEDS: levETIRAcetam ORAL SOL 500 MG/5 ML UDC PO (08:56)
[2023-06-01] MEDS: dilTIAZem HCL 30 MG TABLET PO (08:56)
[2023-06-01] MEDS: TAMSULOSIN HCL 0.4 MG CAPSULE PO (08:57)
[2023-06-01] MEDS: MUPIROCIN 2% OINT 22 GM TUBE 1 APPLIC EACH NARE (08:57)
[2023-06-01] MEDS: FOLIC ACID 1 MG TABLET PO (08:57)
[2023-06-01] MEDS: polyethylene glycoL 3350 17 GM POWD.PACK PO (08:57)
[2023-06-01] MEDS: SEVELAMER CARBONATE 800 MG TABLET 1600 MG PO (08:57)
[2023-06-01] MEDS: ACETAMINOPHEN 325 MG TABLET 650 MG PO (08:57)
--- NOTE | 2023-06-01 10:22 | PM.PNNEP ---
Progress Note: A&P Assessment and Plan (1) End stage renal disease: Code(s): N18.6 - End stage renal disease Status: Chronic Assessment and Plan: HD went well yesterday. volume status looks okay potassium and bicarbonate are okay. (2) Hematoma of right hip: Code(s): S70.01XA - Contusion of right hip, initial encounter Status: Acute Assessment and Plan: as noted by imaging on admission anticoagulation (Eliquis) on hold Surgery recommendations noted Hemoglobin wandering in the 8-9 range. Today up to 9.4. (3) Hypertension: Code(s): I10 - Essential (primary) hypertension Status: Chronic Assessment and Plan: systolic ranging in the 110s-140s range. follow trend of hemodynamics (4) Anemia: Code(s): D64.9 - Anemia, unspecified Status: Chronic Assessment and Plan: due to ESRD and complicated by #2 Epogen with HD Hemoglobin up to 9.4 (5) Dementia: Code(s): F03.90 - Unspecified dementia, unspecified severity, without behavioral disturbance, psychotic disturbance, mood disturbance, and anxiety Status: Chronic Assessment and Plan: on no mediations for this appears stable Will continue to follow. Subjective Date/time seen: 06/01/23 10:22 Interval history: patient is lying comfortably in bed. No chest pain or shortness of breath. Not hungry for breakfast. Nursing says that he eats after he wakes up a little bit more. Exam Narrative: General: elderly male in NAD Heart: normal S1 and S2; no rub or gallop Lungs: clear to auscultation Abdomen: soft, nontender, nondistended, positive bowel sounds Extremities: no cyanosis or clubbing; no edema; right upper leg in CHIVO wraps Skin: no rash Or subcu nodules Objective Data Vital Signs Vital Signs: Vital Signs - 24 hr 05/31/23 14:00 05/31/23 13:56 05/31/23 14:04 Temperature 96.8 F L 98.2 F Pulse Rate 65 66 62 Respiratory Rate 20 18 Blood Pressure 141/41 H 145/54 H 143/39 H Pulse Oximetry 100 05/31/23 14:45 05/31/23 14:15 05/31/23 14:30 Temperature Pulse Rate 67 60 48 L Respiratory Rate Blood Pressure 113/19 L 153/78 H 123/51 L Pulse Oximetry 05/31/23 15:00 05/31/23 15:15 05/31/23 15:30 Temperature Pulse Rate 55 L 46 L 43 L Respiratory Rate Blood Pressure 129/63 143/86 H 134/57 L Pulse Oximetry 05/31/23 15:45 05/31/23 16:00 05/31/23 17:58 Temperature 97.9 F Pulse Rate 54 L 61 50 L Respiratory Rate 16 Blood Pressure 102/38 L 113/40 L 128/52 L Pulse Oximetry 05/31/23 16:15 05/31/23 16:30 05/31/23 16:45 Temperature Pulse Rate 57 L 54 L 58 L Respiratory Rate Blood Pressure 135/57 L 130/53 L 156/61 H Pulse Oximetry 05/31/23 17:00 05/31/23 17:15 05/31/23 17:30 Temperature Pulse Rate 55 L 63 59 L Respiratory Rate Blood Pressure 168/41 H 135/51 L 142/58 H Pulse Oximetry 05/31/23 17:35 05/31/23 21:17 06/01/23 05:58 Temperature 98.5 F 97.6 F Pulse Rate 51 L 64 62 Respiratory Rate 20 18 Blood Pressure 132/56 L 143/45 H 117/43 L Pulse Oximetry 100 100 Intake/Output Intake/Output: Intake & Output 05/29/23 05/30/23 05/31/23 06/01/23 23:59 23:59 23:59 23:59 Intake Total 770 600 500 337 Output Total 1050 0 1000 Balance -280 600 -500 337 Meds/Results Medications: Active Medications Generic Name Dose Route Start Last Admin Trade Name Freq PRN Reason Stop Dose Admin Acetaminophen 650 mg 05/28/23 19:55 06/01/23 08:57 Acetaminophen 325 Mg Tablet PO 650 mg Q4H PRN Administration Mild Pain (1-3) or Fever Hydrocodone Bitart/Acetaminophen 1 tab 05/28/23 19:55 Hydrocodone/Acetaminophen (*Crx) 5-325 Mg Tablet PO Q4H PRN Pain Rated 4-6 Allopurinol 100 mg 05/29/23 21:00 05/31/23 20:44 Allopurinol 100 Mg Tablet PO 100 mg HS LOKESH Administration Atorvastatin Calcium 20 mg 0
--- NOTE | 2023-06-01 11:26 | PM.DS ---
DS: Admitting Diagnosis Discharge Date 06/01/23 Admitting Diagnosis Fall DS: Discharge Diagnosis Discharge Diagnosis (1) Hematoma of right hip: Code(s): S70.01XA - Contusion of right hip, initial encounter Status: Acute (2) Lung mass: Code(s): R91.8 - Other nonspecific abnormal finding of lung field Status: Acute (3) Dementia: Code(s): F03.90 - Unspecified dementia, unspecified severity, without behavioral disturbance, psychotic disturbance, mood disturbance, and anxiety Status: Chronic (4) Hypertension: Code(s): I10 - Essential (primary) hypertension Status: Chronic (5) End-stage renal disease on hemodialysis: Code(s): N18.6 - End stage renal disease; Z99.2 - Dependence on renal dialysis Status: Acute (6) History of atrial fibrillation: Code(s): Z86.79 - Personal history of other diseases of the circulatory system Status: Acute (7) Anemia: Code(s): D64.9 - Anemia, unspecified Status: Chronic DS: Summary Hospital Course Reason for hospitalization: 77yo male with ESRD, dementia, AFib on anticoagulation and HTN here for fall. Please see H&P for details. Hospital Course: Patient brought to the ED after having a fall. He was on Eliquis. 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 Hip xray showing no fracture or dislocation. CT right hip showing small amount of active contrast extravasation within likely hematoma overlying the right greater trochanter. General surgery consulted and recommended CHIVO wrap which was done. We held the Eliquis. Hgb remained low but stable. General Surgery felt okay to start therapy so PT/OT ordered. CXR on admission showing 2cm nodular opacity right lung base and nonspecific haziness left lung base. CT chest showing dependent and peripheral predominant linear and reticular opacities bilaterally to suggest chronic PNA No lung mass noted. Chronic PNA may be related to hx of aspiration. Patient with advanced dementia. He does not have a GTube currently in place. He eats normally and takes oral meds well. Patient with ESRD on HD. CT showing possible osteodystrophy. Nephrology consulted and appreciate their input. Patient with pAFib. On Eliquis for stroke prophylaxis. Discussed case with family regarding the pros and cons about Eliquis and they will think about if we should restart this or if the risk of falls too great. Hgb was 10.8 on admission but dropped to 8 range and there remained stable. B12 low at 236 and folate normal. Iron studies normal except TIBC 138. CT chest showing increased density of the liver most typically seen with hemochromatosis or Amiodarone use. Not on iron replacement on admission. Not on Amio currently. Also noted to have pancytopenia. Thrombocytopenia could be from low B12 level. We consider viral illness but COVID/RSV/Influenza PCR negative. B12 replacement ordered.?Patient overall did well and was able to be discharged home on 06/01/23. Discussed hospital course and follow-up plan with nephew. Also valdo spoke about the pros/cons of Eliquis. He voices understanding and decided to resume Eliquis which was done at discharge. Status at Discharge Cognitive/behavioral status at discharge: stable Time Spent with Patient Time attestation: Total time spent providing and/or coordinating discharge services: 34 minutes Time spent: Greater than 30 minutes Exam Narrative: AF 97.6 117/43 62 18 100% ra Gen - NARD Chest - clear anteriorly to quiet respirations CV - irregular Abd - Soft, ND, +BS, ND Ext - Left upper arm thrill and bruit. No pedal edema. soft hematoma to the right lateral hip Neuro - Alert, confused Psych - calm, follows commands intermittently Skin - Warm and dry. right lateral hip ecchymosis but no open areas. DS: Data Data Completed and Pending Labs on day of discharge: Labs from last 24 hours
== END 2023-06-01 14:45 | disposition home or self-care (01) | DRG 604 ==
LOC: ANHED 17:44 → ANHIMU 21:23 → ANH3MEDSUR 05-30 16:08
PROVIDERS: Internal Medicine Nephrology; Nurse Practitioner Family; Admitting Provider Internal Medicine; Emergency Provider Emergency Medicine; PCP Internal Medicine; Visit Provider Internal Medicine
DX: S70.01XA Contusion of right hip, initial encounter (principal); J18.9 Pneumonia, unspecified organism; N18.6 End stage renal disease; D61.818 Other pancytopenia; T80.818A Extravasation of other vesicant agent, initial encounter; R91.8 Other nonspecific abnormal finding of lung field; W19.XXXA Unspecified fall, initial encounter; F03.90 Unspecified dementia, unspecified severity, without behavioral disturbance, psychotic disturbance, mood disturbance, and anxiety; M19.90 Unspecified osteoarthritis, unspecified site; D63.1 Anemia in chronic kidney disease; I12.9 Hypertensive chronic kidney disease with stage 1 through stage 4 chronic kidney disease, or unspecified chronic kidney disease; D69.59 Other secondary thrombocytopenia; I48.91 Unspecified atrial fibrillation; Z96.642 Presence of left artificial hip joint; Z20.822 Contact with and (suspected) exposure to COVID-19; R63.6 Underweight; Z68.21 Body mass index [BMI] 21.0-21.9, adult; Z79.01 Long term (current) use of anticoagulants; Z93.1 Gastrostomy status; Z22.322 Carrier or suspected carrier of Methicillin resistant Staphylococcus aureus; Z99.2 Dependence on renal dialysis
CPT/HCPCS: 36415; 70450; 71045; 71250; 73502; 73701; 80048; 80053; 80069; 82607; 82728; 82746; 83540; 83550; 83615; 83735; 85014; 85018; 85025; 85027; 85055; 85610; 85730; 86706; 87040; 87340; 87637; 87641; 96372; 96374; 96375; 97161; 97165; 99285; A9270; G0257; G0378; J3420; J7030; P9047; Q5105; Q9967

== ENCOUNTER 2024-04-18 13:47 | Inpatient (IN) | payer MEDICARE, MEDICAID, SELFPAY ==
[2024-04-18] VITALS (11 sets, daily range): BP systolic 149–209; BP diastolic 65–85; PULSE 103–115; RESP 19–26; TEMP 36.6–36.9; O2SAT 94–98
--- NOTE | ~2024-04-18 | CT_ITS ---
EXAMINATION: CT brain wo con DATE: 04/18/2024 14:10 INDICATION: Altered mental status TECHNIQUE: Computed tomography (CT) of the head was performed without intravenous contrast. The mA wa s adjusted according to patient size. Iterative reconstruction technique was employed. Exam dose: 60 5.33 mGy-cm total exam DLP. COMPARISON: 05/28/2023 CT brain FINDINGS: Prominent bilateral vertebral artery and carotid siphon internal carotid artery calcificati ons. There is nonspecific diminished attenuation the cerebral white matter, likely due to chronic small ve ssel ischemic is. Chronic left caudate nucleus lacunar infarct. Chronic left cerebellar hemispheric infarct. There is central and cortical cerebral and cerebellar atrophy. No intracranial mass lesion or hemorrhage or recent cerebrovascular accident, midline shift or mass e ffect or subdural or epidural hematoma is detected. The paranasal sinuses and mastoid air cells are well-developed and aerated. No fracture or bone destruction of the cranial vault. 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 Reviewed, dictated and finalized at [facility]. 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
--- NOTE | ~2024-04-18 | XR_ITS ---
XR chest 1V portable DATE: 04/18/2024 15:30 INDICATION: Weakness TECHNIQUE: Portable AP chest on 04/18/2024 at 1526 hours COMPARISON: 05/29/2023 CT chest FINDINGS: There are patchy bilateral pulmonary infiltrates involving primarily the lower lobes, left greater than right, suggesting bilateral pneumonia. Different diagnosis includes aspiration pneumonit is. Prominent heart size. Aortic arch calcification. No pulmonary vascular congestion or pleural effusion or pneumothorax. Right upper extremity arterial stent. Osteopenia. IMPRESSION: Patchy bilateral lower lobe infiltrates, left greater than right, suggesting bilateral pn eum[place] versus aspiration pneumonitis Reviewed, dictated and finalized at [facility]. 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
--- NOTE | ~2024-04-18 | XR_ITS ---
XR chest 1V portable Ordering provider: Narinder Schuster NP History: 78 years Male with . labored breathing . Comparison: April 18, 2024 FINDINGS: MEDIASTINUM: The cardiac silhouette is slightly enlarged. LUNGS: No effusions or pneumothorax. Bibasilar opacification suggestive of pneumonia. OTHER: No free air under the diaphragm. Stent seen in the right axillary area. IMPRESSION: Bibasilar pneumonia. Reviewed, dictated and finalized at [facility]. NOLOGIST IMPRESSION: Bibasilar pneumonia.
--- NOTE | 2024-04-18 14:10 | ECG_ITS ---
Test Date: 2024-04-18 15:06:14 Measurements Intervals [place] Rate: 115 P: 0 [place]: 0 QRS: 40 QRSD: 83 T: -14 QT: 335 QTc: 465 Interpretive Statements sinus tachycardia with frequent PACs VOLTAGE CRITERIA FOR LVH [MEETS CRITERIA IN ONE OF: R(aVL), S(V1), R(V5), R(V5/V6)+S(V1)] NONSPECIFIC ST & T-WAVE ABNORMALITY No previous ECG available for comparison Electronically Signed On 04-18-2024 18:41:29 [employer] by Brant Del Toro M.D.
[2024-04-18 14:34] LABS: Basophils Percent Auto 0.2 % (0.2-1.2); Eosinophils Absolute Auto 0.1 K/mm3 (0-0.3); Eosinophils Percent Auto 0.6 % (0-4.4); Hematocrit 25.6 % (42.0-52.0); Hemoglobin 7.7 g/dL (14.0-18.0); Immature Granulocyte Absolute 0.09 K/mm3 (0.00-0.031); Immature Granulocyte Percent A 0.8 % (0-0.5); Lymphocytes Absolute Auto 0.99 K/mm3 (0.9-3.2); Lymphocytes Percent Auto 9.3 % (18.3-44.2); Mean Corpuscular HGB Conc 30.1 g/dl (32-36); Mean Corpuscular Hemoglobin 29.4 pg (26-34); Mean Corpuscular Volume 97.7 fl (80-100); Mean Platelet Volume 9.6 fl (7.4-10.4); Monocytes Absolute Auto 0.6 K/mm3 (0.1-0.6); Monocytes Percent Auto 5.7 % (2.6-8.5); Neutrophils Absolute Auto 8.9 K/mm3 (1.3-6.7); Neutrophils Percent Auto 83.4 % (45.5-73.1); Platelet Count Result 300 k/mm3 (150-375); Red Blood Count 2.62 M/mm3 (4.6-6.20); Red Cell Distribution Width 16.6 % (11.5-14.5); White Blood Count 10.7 K/mm3 (4.5-10.0)
--- NOTE | 2024-04-18 14:36 | ED_ITS ---
HPI - Altered Mental Status General Chief Complaint: Altered Mental Status <Salena Epstein PA-C - Last Filed: 04/18/24 16:43> Stated Complaint: ams <Salena Epstein PA-C - Last Filed: 04/18/24 16:43> Time Seen by Provider: 04/18/24 14:07 <Salena Epstein PA-C - Last Filed: 04/18/24 16:43> Source: patient and EMS <Salena Epstein PA-C - Last Filed: 04/18/24 16:43> Mode of arrival: EMS <LOUIS Gray Last Filed: 04/18/24 16:43> Limitations: dementia <Salena Epstein PA-C - Last Filed: 04/18/24 16:43> History of Present Illness HPI narrative: This is a 78 year old male that presents to the ER for altered mental status. Patient sent in from facility for further evaluation. Reportedly patient is nonverbal at baseline. No further information given. Patient is unable to provide any further history. <Salena Epstein PA-C - Last Filed: 04/18/24 16:43> Related Data Home Medications: Home Medications ?Medication ?Instructions ?Recorded ?Confirmed ?Last Taken ?Type allopurinol 100 mg tablet 100 mg PO HS 09/19/21 07/02/23 Unknown History apixaban 2.5 mg tablet (Eliquis) 2.5 mg PO BID 09/19/21 07/02/23 Unknown History atorvastatin 20 mg tablet 20 mg PO HS 09/19/21 07/02/23 Unknown History folic acid 1 mg tablet 1 mg PO DAILY 09/19/21 07/02/23 Unknown History furosemide 80 mg tablet 80 mg PO BID 09/19/21 07/02/23 Unknown History polyethylene glycol 3350 17 gram 17 g PO QAM PRN Constipation 09/19/21 07/02/23 Unknown History oral powder packet (Miralax) ropinirole 0.5 mg tablet 0.5 mg PO 3XW 09/19/21 07/02/23 Unknown History diltiazem HCl 30 mg tablet 30 mg PO TID 10/22/21 07/02/23 Unknown History sevelamer carbonate 800 mg tablet 1,600 mg PO TID Crushes tablet and 10/22/21 07/02/23 Unknown History puts in food tamsulosin 0.4 mg capsule (Flomax) 0.4 mg PO DAILY 10/22/21 07/02/23 Unknown History lorazepam 0.5 mg tablet 0.5 mg PO BID PRN Anxiety 05/29/23 07/02/23 Unknown History levetiracetam 100 mg/mL oral 500 mg PO BID 05/30/23 07/02/23 Unknown History solution <Salena Epstein PA-C - Last Filed: 04/18/24 16:43> Allergies/Adverse Reactions: Allergies Allergy/AdvReac Type Severity Reaction Status Date / Time No Known Allergies Allergy Verified 07/02/23 15:00 <Salena Epstein PA-C - Last Filed: 04/18/24 16:43> Review of Systems 2 Review of Systems: ROS unobtainable: Yes unobtainable due to mental status <Salena Epstein PA-C - Last Filed: 04/18/24 16:43> [facility] Past Medical History Medical History: Medical History Arthritis Chronic renal failure Dementia History of atrial fibrillation Hypertension <Salena Epstein PA-C - Last Filed: 04/18/24 16:43> Surgical History Surgical History: Surgical History History of hip replacement Left <Salena Epstein PA-C - Last Filed: 04/18/24 16:43> Family History Family History: Family History Other Diabetes mellitus Hypertension <LOUIS Gray Last Filed: 04/18/24 16:43> Social History Social History: Social History Smoking status: Never smoker Second hand tobacco smoke exposure: No Alcohol intake: never Substance use: never Substance use type: does not use Living arrangements: with family Occupation/Education: retired Gender identity (if verbalized by the patient): Male Spiritual care concerns: No <Salena Epstein PA-C - Last Filed: 04/18/24 16:43> Exam 2 Narrative: GENERAL: Elderly, thin, mildly lethargic HEAD: Normocephalic, atraumatic. EYES: PERRLA and EOMI. ENT: Nares clear, no rhinorrhea or epistaxis. Mucous membranes dry. Oropharynx without tonsillar hypertrophy exudate or other lesions. NECK: Supple. No adenopathy or masses. CHEST: No respiratory distress. Lung sounds coarse. No wheezes rales or rhonchi HEART: Regular rate and rhythm. No murmur heard. Normal peripheral pulses. ABDOMEN: Soft, nontender, nondistended, normal active bowel sounds. G tube present in the abdomen EXTREMITIES: Legs are contracted. No edema. SKIN: Warm, dry, no rash. NEURO: Alert to verbal stimuli. Does not follow commands <Salena Epstein PA-C - Last Filed: 04/18/24 16:43> Course VICE PRESIDENT RISK MANAGEMENT/PA Physician Supervision I agree with midlevel documentation; I performed the medical decision making component of this evaluation. I had independent [id number]-wzhy time with the patient and performed my own independent evaluation and assessment. Patient has findings of an aspiration pneumonia with patchy bilateral infiltrates. All placed on antibiotics, VBG shows persistent alkalosis, end-stage renal disease with some slight elevation in BUN compared to her previous level. Admitted for further evaluation and treatment with antibiotics. Please refer to mid-level dictation for remainder of care and admission disposition. <Negro Diaz MD - Last Filed: 04/18/24 22:26> Consultations Consultation #1: spoke with hospitalist about patient and workup who accepts admission < Salena Epstein PA-C - Last Filed: 04/18/24 16:43> Date: 04/18/24 <Salena Epstein PA-C - Last Filed: 04/18/24 16:43> Vital Signs Vital signs: Vital Signs Temperature 36.6 C 04/18/24 13:50 Pulse Rate 104 H 04/18/24 13:50 Respiratory Rate 22 H 04/18/24 13:50 Blood Pressure 164/85 H 04/18/24 13:50 Pulse Oximetry 94 04/18/24 13:50 Oxygen Delivery Room Air 04/18/24 13:50 Temperature 36.9 C 04/18/24 15:34 Pulse Rate 112 H 04/18/24 18:15 Respiratory Rate 20 04/18/24 18:15 Blood Pressure 163/80 H 04/18/24 18:15 Pulse Oximetry 96 04/18/24 18:15 Oxygen Delivery Room Air 04/18/24 13:53 <Salena Epstein PA-C - Last Filed: 04/18/24 16:43> Vital Signs Temperature 36.6 C 04/18/24 13:50 Pulse Rate 104 H 04/18/24 13:50 Respiratory Rate 22 H 04/18/24 13:50 Blood Pressure 164/85 H 04/18/24 13:50 Pulse Oximetry 94 04/18/24 13:50 Oxygen Delivery Room Air 04/18/24 13:50 Temperature 36.9 C 04/18/24 15:34 Pulse Rate 112 H 04/18/24 18:15 Respiratory Rate 20 04/18/24 18:15 Blood Pressure 163/80 H 04/18/24 18:15 Pulse Oximetry 96 04/18/24 18:15 Oxygen Delivery Room Air 04/18/24 13:53 <Negro Diaz MD - Last Filed: 04/18/24 22:26> MDM - Altered Mental Status MDM Narrative Medical decision making narrative: patient presents to the emergency department for altered mental status. At baseline patient is nonverbal, he is lethargic today in the ER. Oxygen saturation is normal on room air. Lung sounds are coarse. Has been mildly tachycardic in atrial fibrillation with RVR. Rates in the 100s to 110s. Blood pressure is also elevated. Will be given his dose of diltiazem. Patient is afebrile. CBC with leukocytosis to 10.7. Hemoglobin appears grossly stable. Metabolic panel with evidence of patient's end-stage renal disease. CRP is 19.1, lactic acid is not elevated. Influenza, RSV and COVID screens are negative. Urine is nitrate positive, but no white blood cells or bacteria. This will be sent for culture. CT brain without acute findings. Chest x-ray shows aspiration pneumonia. Blood cultures drawn, patient started on IV antibiotics, will be admitted for further management. Spoke with hospitalist about patient and workup who accepts admission <Salena Epstein PA-C - Last Filed: 04/18/24 16:43> Differential Diagnosis Differential diagnosis: Likely altered mental status, delirium, dementia, hypoglycemia, hyponatremia, subarachnoid hemorrhage, sepsis and other (UTI, pneumonia) <Salena Epstein PA-C - Last Filed: 04/18/24 16:43> Lab Data Attestation: I reviewed the patient's lab results. <Salena Epstein PA-C - Last Filed: 04/18/24 16:43> Result diagrams: 04/18/24 14:28 04/18/24 14:28 <Salena Epstein PA-C - Last Filed: 04/18/24 16:43> Labs: Lab Results 04/18/24 04/18/24 04/18/24 Range/Units 14:28 14:59 15:02 WBC 10.7 H (4.5-10.0) K/mm3 RBC 2.62 L (4.6-6.20) M/mm3 Hgb 7.7 L (14.0-18.0) g/dL Hct 25.6 L (42.0-52.0) % MCV 97.7 (80-100) fl MCH 29.4 (26-34) pg MCHC 30.1 L (32-36) g/dl RDW 16.6 H (11.5-14.5) % Plt Count 300 D (150-375) k/mm3 MPV 9.6 (7.4-10.4) fl Immature Gran % (Auto) 0.8 H (0-0.5) % Neut % (Auto) 83.4 H (45.5-73.1) % Lymph % (Auto) 9.3 L (18.3-44.2) % [place] % (Auto) 5.7 (2.6-8.5) % Eos % (Auto) 0.6 (0-4.4) % Baso % (Auto) 0.2 (0.2-1.2) % Lymph # (Auto) 0.99 (0.9-3.2) K/mm3 [place] # (Auto) 0.6 (0.1-0.6) K/mm3 Eos # (Auto) 0.1 (0-0.3) K/mm3 Baso # (Auto) 0.0 (0.0-0.1) K/mm3 Abs Immat Gran (auto) 0.09 H (0.00-0.031) K/mm3 Absolute Neuts (auto) 8.9 H (1.3-6.7) K/mm3 Absolute Nucleated RBC 0.000 (0.0-0.012) K/mm3 Nucleated RBC % 0.0 (0.0-0.2) % PT 16.0 H (11.1-14.7) Seconds INR 1.2 APTT 33.8 (22.3-36.8) Seconds Methemoglobin (0-1.5) %THb Sodium 143 (137-145) mmol/L Potassium 3.6 (3.4-5.0) mmol/L Chloride 98 (98-107) mmol/L Carbon Dioxide > 40 H (22-30) mmol/L Anion Gap (4-12) mmol/L BUN 73 H D (9-20) mg/dL Creatinine 4.50 H (0.7-1.3) mg/dL Estim Creat Clear Calc 11 ml/min Estimated GFR 15 L (59 - ) Glucose 170 H (65-110) mg/dL Lactic Acid 1.3 (0.7-2.0) mmol/L Calcium 9.1 (8.4-10.2) mg/dL Total Bilirubin 0.6 (0.2-1.3) mg/dL AST 81 H (17-59) U/L ALT 62 H (6-50) U/L Alkaline Phosphatase 111 (38-126) U/L C-Reactive Protein 19.1 H (<1.0) mg/dL Total Protein 7.0 (6.3-8.2) g/dL Albumin 3.1 L (3.5-5.1) g/dL Urine Color (Yellow) Urine Appearance (Clear) Urine pH (5.0-9.0) Ur Specific [place] (1.001-1.035) Urine Protein (Negative) mg/dL Urine Glucose (UA) (Negative) mg/dL Urine Ketones (Negative) mg/dL Ur Blood (Man) (Negative) Urine Nitrate (Negative) Urine Bilirubin (Negative) Urine Urobilinogen (<2.0) mg/dL Add Ur Microanalysis Leukocyte Esterase Rfl (Negative) LINDSAY/UL Urine RBC (0-2) /hpf Urine WBC (0-3) /hpf Ur Squamous Epith Cells (Few) /hpf Urine Bacteria /hpf Urine Casts Influenza A (RT-PCR) Negative (Negative) Influenza B (RT-PCR) Negative (Negative) RSV (RT-PCR) Negative (Negative) SARS-CoV-2 RNA (RT-PCR) Negative (Negative) 04/18/24 04/18/24 Range/Units 15:23 16:05 WBC (4.5-10.0) K/mm3 RBC (4.6-6.20) M/mm3 Hgb (14.0-18.0) g/dL Hct (42.0-52.0) % MCV (80-100) fl MCH (26-34) pg MCHC (32-36) g/dl RDW (11.5-14.5) % Plt Count (150-375) k/mm3 MPV (7.4-10.4) fl Immature Gran % (Auto) (0-0.5) % Neut % (Auto) (45.5-73.1) % Lymph % (Auto) (18.3-44.2) % [place] % (Auto) (2.6-8.5) % Eos % (Auto) (0-4.4) % Baso % (Auto) (0.2-1.2) % Lymph # (Auto) (0.9-3.2) K/mm3 [place] # (Auto) (0.1-0.6) K/mm3 Eos # (Auto) (0-0.3) K/mm3 Baso # (Auto) (0.0-0.1) K/mm3 Abs Immat Gran (auto) (0.00-0.031) K/mm3 Absolute Neuts (auto) (1.3-6.7) K/mm3 Absolute Nucleated RBC (0.0-0.012) K/mm3 Nucleated RBC % (0.0-0.2) % PT (11.1-14.7) Seconds INR APTT (22.3-36.8) Seconds Methemoglobin 0.4 (0-1.5) %THb Sodium (137-145) mmol/L Potassium (3.4-5.0) mmol/L Chloride (98-107) mmol/L Carbon Dioxide (22-30) mmol/L Anion Gap (4-12) mmol/L BUN (9-20) mg/dL Creatinine (0.7-1.3) mg/dL Estim Creat Clear Calc ml/min Estimated GFR (59 - ) Glucose (65-110) mg/dL Lactic Acid (0.7-2.0) mmol/L Calcium (8.4-10.2) mg/dL Total Bilirubin (0.2-1.3) mg/dL AST (17-59) U/L ALT (6-50) U/L Alkaline Phosphatase (38-126) U/L C-Reactive Protein (<1.0) mg/dL Total Protein (6.3-8.2) g/dL Albumin (3.5-5.1) g/dL Urine Color Dark yellow (Yellow) Urine Appearance Turbid H (Clear) Urine pH 6.0 (5.0-9.0) Ur Specific [place] 1.023 (1.001-1.035) Urine Protein 3+ H (Negative) mg/dL Urine Glucose (UA) 1+ H (Negative) mg/dL Urine Ketones Negative (Negative) mg/dL Ur Blood (Man) 2+ H (Negative) Urine Nitrate Positive H (Negative) Urine Bilirubin 1+ H (Negative) Urine Urobilinogen 0.2 (<2.0) mg/dL Add Ur Microanalysis Reviewed Leukocyte Esterase Rfl 2+ H (Negative) LINDSAY/UL Urine RBC 3-5 H (0-2) /hpf Urine WBC 0-5 (0-3) /hpf Ur Squamous Epith Cells Occasional (Few) /hpf Urine Bacteria None seen /hpf Urine Casts 0-2 Influenza A (RT-PCR) (Negative) Influenza B (RT-PCR) (Negative) RSV (RT-PCR) (Negative) SARS-CoV-2 RNA (RT-PCR) (Negative) <Salena Epstein PA-C - Last Filed: 04/18/24 16:43> Lab Results 04/18/24 04/18/24 04/18/24 Range/Units 14:28 14:59 15:02 WBC 10.7 H (4.5-10.0) K/mm3 RBC 2.62 L (4.6-6.20) M/mm3 Hgb 7.7 L (14.0-18.0) g/dL Hct 25.6 L (42.0-52.0) % MCV 97.7 (80-100) fl MCH 29.4 (26-34) pg MCHC 30.1 L (32-36) g/dl RDW 16.6 H (11.5-14.5) % Plt Count 300 D (150-375) k/mm3 MPV 9.6 (7.4-10.4) fl Immature Gran % (Auto) 0.8 H (0-0.5) % Neut % (Auto) 83.4 H (45.5-73.1) % Lymph % (Auto) 9.3 L (18.3-44.2) % [place] % (Auto) 5.7 (2.6-8.5) % Eos % (Auto) 0.6 (0-4.4) % Baso % (Auto) 0.2 (0.2-1.2) % Lymph # (Auto) 0.99 (0.9-3.2) K/mm3 [place] # (Auto) 0.6 (0.1-0.6) K/mm3 Eos # (Auto) 0.1 (0-0.3) K/mm3 Baso # (Auto) 0.0 (0.0-0.1) K/mm3 Abs Immat Gran (auto) 0.09 H (0.00-0.031) K/mm3 Absolute Neuts (auto) 8.9 H (1.3-6.7) K/mm3 Absolute Nucleated RBC 0.000 (0.0-0.012) K/mm3 Nucleated RBC % 0.0 (0.0-0.2) % PT 16.0 H (11.1-14.7) Seconds INR 1.2 APTT 33.8 (22.3-36.8) Seconds Methemoglobin (0-1.5) %THb Sodium 143 (137-145) mmol/L Potassium 3.6 (3.4-5.0) mmol/L Chloride 98 (98-107) mmol/L Carbon Dioxide > 40 H (22-30) mmol/L Anion Gap (4-12) mmol/L BUN 73 H D (9-20) mg/dL Creatinine 4.50 H (0.7-1.3) mg/dL Estim Creat Clear Calc 11 ml/min Estimated GFR 15 L (59 - ) Glucose 170 H (65-110) mg/dL Lactic Acid 1.3 (0.7-2.0) mmol/L Calcium 9.1 (8.4-10.2) mg/dL Total Bilirubin 0.6 (0.2-1.3) mg/dL AST 81 H (17-59) U/L ALT 62 H (6-50) U/L Alkaline Phosphatase 111 (38-126) U/L C-Reactive Protein 19.1 H (<1.0) mg/dL Total Protein 7.0 (6.3-8.2) g/dL Albumin 3.1 L (3.5-5.1) g/dL Urine Color (Yellow) Urine Appearance (Clear) Urine pH (5.0-9.0) Ur Specific [place] (1.001-1.035) Urine Protein (Negative) mg/dL Urine Glucose (UA) (Negative) mg/dL Urine Ketones (Negative) mg/dL Ur Blood (Man) (Negative) Urine Nitrate (Negative) Urine Bilirubin (Negative) Urine Urobilinogen (<2.0) mg/dL Add Ur Microanalysis Leukocyte Esterase Rfl (Negative) LINDSAY/UL Urine RBC (0-2) /hpf Urine WBC (0-3) /hpf Ur Squamous Epith Cells (Few) /hpf Urine Bacteria /hpf Urine Casts Influenza A (RT-PCR) Negative (Negative) Influenza B (RT-PCR) Negative (Negative) RSV (RT-PCR) Negative (Negative) SARS-CoV-2 RNA (RT-PCR) Negative (Negative) 04/18/24 04/18/24 Range/Units 15:23 16:05 WBC (4.5-10.0) K/mm3 RBC (4.6-6.20) M/mm3 Hgb (14.0-18.0) g/dL Hct (42.0-52.0) % MCV (80-100) fl MCH (26-34) pg MCHC (32-36) g/dl RDW (11.5-14.5) % Plt Count (150-375) k/mm3 MPV (7.4-10.4) fl Immature Gran % (Auto) (0-0.5) % Neut % (Auto) (45.5-73.1) % Lymph % (Auto) (18.3-44.2) % [place] % (Auto) (2.6-8.5) % Eos % (Auto) (0-4.4) % Baso % (Auto) (0.2-1.2) % Lymph # (Auto) (0.9-3.2) K/mm3 [place] # (Auto) (0.1-0.6) K/mm3 Eos # (Auto) (0-0.3) K/mm3 Baso # (Auto) (0.0-0.1) K/mm3 Abs Immat Gran (auto) (0.00-0.031) K/mm3 Absolute Neuts (auto) (1.3-6.7) K/mm3 Absolute Nucleated RBC (0.0-0.012) K/mm3 Nucleated RBC % (0.0-0.2) % PT (11.1-14.7) Seconds INR APTT (22.3-36.8) Seconds Methemoglobin 0.4 (0-1.5) %THb Sodium (137-145) mmol/L Potassium (3.4-5.0) mmol/L Chloride (98-107) mmol/L Carbon Dioxide (22-30) mmol/L Anion Gap (4-12) mmol/L BUN (9-20) mg/dL Creatinine (0.7-1.3) mg/dL Estim Creat Clear Calc ml/min Estimated GFR (59 - ) Glucose (65-110) mg/dL Lactic Acid (0.7-2.0) mmol/L Calcium (8.4-10.2) mg/dL Total Bilirubin (0.2-1.3) mg/dL AST (17-59) U/L ALT (6-50) U/L Alkaline Phosphatase (38-126) U/L C-Reactive Protein (<1.0) mg/dL Total Protein (6.3-8.2) g/dL Albumin (3.5-5.1) g/dL Urine Color Dark yellow (Yellow) Urine Appearance Turbid H (Clear) Urine pH 6.0 (5.0-9.0) Ur Specific [place] 1.023 (1.001-1.035) Urine Protein 3+ H (Negative) mg/dL Urine Glucose (UA) 1+ H (Negative) mg/dL Urine Ketones Negative (Negative) mg/dL Ur Blood (Man) 2+ H (Negative) Urine Nitrate Positive H (Negative) Urine Bilirubin 1+ H (Negative) Urine Urobilinogen 0.2 (<2.0) mg/dL Add Ur Microanalysis Reviewed Leukocyte Esterase Rfl 2+ H (Negative) LINDSAY/UL Urine RBC 3-5 H (0-2) /hpf Urine WBC 0-5 (0-3) /hpf Ur Squamous Epith Cells Occasional (Few) /hpf Urine Bacteria None seen /hpf Urine Casts 0-2 Influenza A (RT-PCR) (Negative) Influenza B (RT-PCR) (Negative) RSV (RT-PCR) (Negative) SARS-CoV-2 RNA (RT-PCR) (Negative) <Negro Diaz MD - Last Filed: 04/18/24 22:26> ABG Data ABG results: 04/18/24 16:05 Puncture Site Left radial ABG pH 7.521 H* ABG pCO2 38.4 ABG pO2 67.7 L ABG PO2/FiO2 Ratio 3.22 ABG HCO3 30.7 H ABG O2 Saturation 95.2 ABG O2 Content 10.6 L ABG Base Excess 7.3 A-a Gradient 90.0 Oxyhemoglobin 92.0 Carboxyhemoglobin 1.1 Reduced Hemoglobin 6.5 H Total Hemoglobin 8.1 L O2 Delivery Device Not Reportable O2 Liters/Min Not Reportable FiO2 21 <Salena Epstein PA-C - Last Filed: 04/18/24 16:43> 04/18/24 16:05 Puncture Site Left radial ABG pH 7.521 H* ABG pCO2 38.4 ABG pO2 67.7 L ABG PO2/FiO2 Ratio 3.22 ABG HCO3 30.7 H ABG O2 Saturation 95.2 ABG O2 Content 10.6 L ABG Base Excess 7.3 A-a Gradient 90.0 Oxyhemoglobin 92.0 Carboxyhemoglobin 1.1 Reduced Hemoglobin 6.5 H Total Hemoglobin 8.1 L O2 Delivery Device Not Reportable O2 Liters/Min Not Reportable FiO2 21 <Negro Diaz MD - Last Filed: 04/18/24 22:26> Imaging Data Radiologist's impression: ITS Impressions Head CT 04/18/24 14:30 IMPRESSION: Cerebral atherosclerosis and chronic small vessel ischemic changes of the cerebral white matter 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 Cerebral and cerebellar atrophy No acute intracranial finding Chest X-Ray 04/18/24 15:57 IMPRESSION: Patchy bilateral lower lobe infiltrates, left greater than right, suggesting bilateral pneumonia versus aspiration pneumonitis <Salena Epstein PA-C - Last Filed: 04/18/24 16:43> ECG Data EKG #1: ECG completion date: 04/18/24 <Salena Epstein PA-C - Last Filed: 04/18/24 16:43> EKG Interpretation: atrial fibrillation (with RVR) and normal QT <Salena Epstein PA-C - Last Filed: 04/18/24 16:43> Critical Care Time Critical Care Time Critical Care Time: Yes <Salena Epstein PA-C - Last Filed: 04/18/24 16:43> Total Critical Care Time: 35 <Salena Epstein PA-C - Last Filed: 04/18/24 16:43> Discharge Plan Discharge Clinical Impression: Atrial fibrillation with RVR Aspiration pneumonia Qualifiers: Aspiration pneumonia type: unspecified Laterality: bilateral Lung location: l ower lobe of lung Qualified Code(s): J69.0 - Pneumonitis due to inhalation of food and vomit <Salena Epstein PA-C - Last Filed: 04/18/24 16:43> Patient Disposition: Still a Patient <Salena Epstein PA-C - Last Filed: 04/18/24 16:43> Condition: Serious <LOUIS Gray Last Filed: 04/18/24 16:43>
[2024-04-18 14:54] LABS: Alanine Aminotransferase 62 U/L (6-50); Albumin Level 3.1 g/dL (3.5-5.1); Alkaline Phosphatase 111 U/L (38-126); Aspartate Amino Transferase 81 U/L (17-59); Bilirubin,Total 0.6 mg/dL (0.2-1.3); Blood Urea Nitrogen 73 mg/dL (9-20); Calcium 9.1 mg/dL (8.4-10.2); Carbon Dioxide > 40 mmol/L (22-30); Chloride 98 mmol/L (98-107); Estimated CRCL calculation 11 ml/min; Estimated Glomerular Filt Rate 15; Glucose 170 mg/dL (65-110); Potassium 3.6 mmol/L (3.4-5.0); Sodium 143 mmol/L (137-145)
[2024-04-18 14:59] LABS: INR 1.2
[2024-04-18 15:00] LABS: Partial Thromboplastin Time 33.8 Seconds (22.3-36.8)
[2024-04-18 15:17] LABS: Lactic Acid Reflex 1.3 mmol/L (0.7-2.0)
[2024-04-18] MEDS: SODIUM CHLORIDE 0.9% IV 500 ML 999 ML IV CONT (15:36)
[2024-04-18 15:37] LABS: CRP 19.1 mg/dL (<1.0)
[2024-04-18 15:40] LABS: Add Urine Microscopic? YES; Appearance Urine Turbid (Clear); Bacteria Urine None Seen /hpf; Bilirubin Urine 1+ (Negative); Blood Urine 2+ (Negative); Color Urine Dark Yellow (Yellow); Glucose Urine UA 1+ mg/dL (Negative); Ketones Urine Negative (Negative); Leukocyte Esterase Ur 2+ LEU/UL (Negative); Need Manual Microscopic Reviewed; Nitrate Urine Positive (Negative); Non Pathogenic Casts 0-2; Protein Urine 3+ mg/dL (Negative); Specific Grav Ur 1.023 (1.001-1.035); Squamous Epithelial Cell Urine Occasional /hpf (Few); Urobilinogen Urine 0.2 mg/dL (<2.0); WBC Urine 0-5 /hpf (0-3)
[2024-04-18 15:45] LABS: Influenza A QL RT-PCR Negative (Negative); Influenza B QL RT-PCR Negative (Negative); RSV RNA, RT-PCR Negative (Negative); SARS-CoV-2 RNA PCR Negative (Negative)
[2024-04-18 16:13] LABS: Base Excess ABG 7.3 mEq/l (+/-2.0); Carboxyhemoglobin 1.1 % THb (0-2.0); Fractional Inspired Oxygen 21 %; HCO3 ABG 30.7 mEq/l (22.0-26.0); Methemoglobin ABG 0.4 %THb (0-1.5); Oxygen Content ABG 10.6 %vol (16.0-22.0); Oxygen Saturation ABG 95.2 % (95.0-100.0); PCO2 ABG 38.4 mmHg (35.0-45.0); PO2 ABG 67.7 mmHg (80.0-100.0); PO2 FiO2 Ratio Arterial Blood 3.22 %; Reduced Hemoglobin 6.5 %THb (0-5.0); Total Hemoglobin 8.1 g/dL (12.0-18.0)
[2024-04-18 16:14] LABS: Modified Allen's Test Pass; Site Drawn LEFT RADIAL; pH ABG 7.521 (7.350-7.450)
--- NOTE | 2024-04-18 16:37 | PC.NURSE ---
This RN called and spoke to Leandro at [facility] in [place], gave update on pt status and plan for admit. [place] made aware. Attempted to call pt contact [facility] at [phone] to update w/ no answer.
--- NOTE | 2024-04-18 17:09 | PM.IMHP ---
H&P: HPI History of Present Illness Date/Time: 04/18/24 17:09 Chief Complaint: Lethargy, altered mental status Narrative: 78-year-old from a facility with past medical history dementia nonverbal, end-stage renal disease on hemodialysis, CVA, and atrial fibrillation, was brought into the hospital for lethargy and altered mental status from baseline. ABG shows compensated respiratory acidosis with hypoxia, AST and ALT are slightly elevated 8162, C-reactive protein is high at 19.1, UA has 2+ leukocyte esterase, positive for nitrates, positive for RBCs, chest x-ray shows patchy infiltrates left greater than right, head CT shows no acute findings PMF Past Medical History Medical History Arthritis Chronic renal failure Dementia History of atrial fibrillation Hypertension Surgical History Surgical History History of hip replacement Left Family History Family History Other Diabetes mellitus Hypertension Social History Social History Smoking status: Never smoker Second hand tobacco smoke exposure: No Alcohol intake: never Substance use: never Substance use type: does not use Living arrangements: with family Occupation/Education: retired Gender identity (if verbalized by the patient): Male Spiritual care concerns: No Meds Home Medications and Allergies Home Medications ?Medication ?Instructions ?Recorded ?Confirmed ?Type allopurinol 100 mg tablet 100 mg PO HS 09/19/21 07/02/23 History apixaban 2.5 mg tablet (Eliquis) 2.5 mg PO BID 09/19/21 07/02/23 History atorvastatin 20 mg tablet 20 mg PO HS 09/19/21 07/02/23 History folic acid 1 mg tablet 1 mg PO DAILY 09/19/21 07/02/23 History furosemide 80 mg tablet 80 mg PO BID 09/19/21 07/02/23 History polyethylene glycol 3350 17 gram 17 g PO QAM PRN Constipation 09/19/21 07/02/23 History oral powder packet (Miralax) ropinirole 0.5 mg tablet 0.5 mg PO 3XW 09/19/21 07/02/23 History diltiazem HCl 30 mg tablet 30 mg PO TID 10/22/21 07/02/23 History sevelamer carbonate 800 mg tablet 1,600 mg PO TID Crushes tablet and 10/22/21 07/02/23 History puts in food tamsulosin 0.4 mg capsule (Flomax) 0.4 mg PO DAILY 10/22/21 07/02/23 History lorazepam 0.5 mg tablet 0.5 mg PO BID PRN Anxiety 05/29/23 07/02/23 History levetiracetam 100 mg/mL oral 500 mg PO BID 05/30/23 07/02/23 History solution cyanocobalamin (vitamin B-12) 1,000 mcg PO QAM #30 tabs 06/01/23 07/02/23 Rx 1,000 mcg tablet (Vitamin B-12) Allergies Allergy/AdvReac Type Severity Reaction Status Date / Time No Known Allergies Allergy Verified 07/02/23 15:00 Vital Signs Vital Signs - 24 hr 04/18/24 13:50 04/18/24 13:53 04/18/24 15:34 Temperature 97.9 F 98.4 F Pulse Rate 104 H 112 H Respiratory Rate 22 H 26 H Blood Pressure 164/85 H 171/68 H Pulse Oximetry 94 94 95 Oxygen Delivery Room Air Room Air 04/18/24 15:35 04/18/24 16:39 Temperature Pulse Rate 103 H 113 H Respiratory Rate Blood Pressure 209/83 H Pulse Oximetry Oxygen Delivery H&P: Results Labs Labs: Short CBC 04/18/24 Range/Units 14:28 WBC 10.7 H (4.5-10.0) K/mm3 Hgb 7.7 L (14.0-18.0) g/dL Hct 25.6 L (42.0-52.0) % Plt Count 300 D (150-375) k/mm3 BMP 04/18/24 14:28 Sodium 143 Potassium 3.6 Chloride 98 Carbon Dioxide > 40 H BUN 73 H D Creatinine 4.50 H Glucose 170 H Calcium 9.1 Liver Function 04/18/24 Range/Units 14:28 Total Bilirubin 0.6 (0.2-1.3) mg/dL AST 81 H (17-59) U/L ALT 62 H (6-50) U/L Alkaline Phosphatase 111 (38-126) U/L Albumin 3.1 L (3.5-5.1) g/dL Urine 04/18/24 Range/Units 15:23 Urine Color Dark yellow (Yellow) Urine Appearance Turbid H (Clear) Urine pH 6.0 (5.0-9.0) Ur Specific [place] 1.023 (1.001-1.035) Urine Protein 3+ H (Negative) mg/dL Urine Glucose (UA) 1+ H (Negative) mg/dL
[2024-04-18] MEDS: dilTIAZem HCL 30 MG TABLET FEED TUBE (17:22)
[2024-04-18] MEDS: MEROPENEM 500 MG/NS 100 ML 500 MG/100 ML BAG 200 MG IVPB (17:22)
--- NOTE | 2024-04-18 19:35 | P.HP_ITS ---
H&P: HPI History of Present Illness Date/Time: 04/18/24 19:35 Chief Complaint: Altered mental status Narrative: This is a 78-year-old female with past medical history significant for atrial fibrillation, seizure disorder, end-stage renal disease on hemodialysis, chronic anticoagulation, dysphagia, dementia, peg tube in place. Patient was brought to the emergency room due to altered mental status. Patient is a intermediate resident. Most of the history has been obtained upon reviewing medical records. At the time of admission patient is obtunded. Preliminary workup was significant for chest x-ray with bilateral lower lobe infiltrates. EXAMINATION: CT brain wo con DATE: 04/18/2024 14:10 INDICATION: Altered mental status TECHNIQUE: Computed tomography (CT) of the head was performed without intrav enous contrast. The mA was adjusted according to patient size. Iterative reconstruction technique was employed. Exam dose: 605.33 mGy-cm total exam DLP. COMPARISON: 05/28/2023 CT brain FINDINGS: Prominent bilateral vertebral artery and carotid siphon internal carotid artery calcifications. There is nonspecific diminished attenuation the cerebral white matter, likely due to chronic small vessel ischemic is. Chronic left caudate nucleus lacunar infarct. Chronic left cerebellar hemispheric infarct. There is central and cortical cerebral and cerebellar atrophy. No intracranial mass lesion or hemorrhage or recent cerebrovascular accident, midline shift or mass effect or subdural or epidural hematoma is detected. The paranasal sinuses and mastoid air cells are well-developed and aerated. No fracture or bone destruction of the cranial vault. 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 Different diagnosis includes aspiration pneumonitis. Prominent heart size. Aortic arch calcification. No pulmonary vascular congestion or pleural effusion or pneumothorax. Right upper extremity arterial stent. Osteopenia. IMPRESSION: Patchy bilateral lower lobe infiltrates, left greater than right, suggesting bilateral pneumonia versus aspiration pneumonitis Review of Systems Review of Systems: ROS unobtainable: Yes unobtainable due to mental status (Obtunded/lethargy) PMFSH Past Medical History Medical History Arthritis Chronic renal failure Dementia History of atrial fibrillation Hypertension Surgical History Surgical History History of hip replacement Left Family History Family History Other Diabetes mellitus Hypertension Social History Social History Smoking status: Never smoker Second hand tobacco smoke exposure: No Alcohol intake: never Substance use: never Substance use type: does not use Living arrangements: with family Occupation/Education: retired Gender identity (if verbalized by the patient): Male Spiritual care concerns: No Meds Home Medications and Allergies Home Medications ?Medication ?Instructions ?Recorded ?Confirmed ?Type allopurinol 100 mg tablet 100 mg PO HS 09/19/21 07/02/23 History apixaban 2.5 mg tablet (Eliquis) 2.5 mg PO BID 09/19/21 07/02/23 History atorvastatin 20 mg tablet 20 mg PO HS 09/19/21 07/02/23 History folic acid 1 mg tablet 1 mg PO DAILY 09/19/21 07/02/23 History furosemide 80 mg tablet 80 mg PO BID 09/19/21 07/02/23 History polyethylene glycol 3350 17 gram 17 g PO QAM PRN Constipation 09/19/21 07/02/23 History oral powder packet (Miralax) ropinirole 0.5 mg tablet 0.5 mg PO 3XW 09/19/21 07/02/23 History diltiazem HCl 30 mg tablet 30 mg PO TID 10/22/21 07/02/23 History sevelamer carbonate 800 mg tablet 1,600 mg PO TID Crushes tablet and 10/22/21 07/02/23 History puts in food tamsulosin 0.4 mg capsule (Flomax) 0.4 mg PO DAILY 10/22/21 07/02/23 History lorazepam 0.5 mg tablet 0.5 mg PO BID PRN Anxiety 05/29/23 07/02/23 History levetiracetam 100 mg/mL oral 500 mg PO BID 05/30/23 07/02/23 History solution cyanocobalamin (vitamin B-12) 1,000 mcg PO QAM #30 tabs 06/01/23 07/02/23 Rx 1,000 mcg tablet (Vitamin B-12) Allergies Allergy/AdvReac Type Severity Reaction Status Date / Time No Known Allergies Allergy Verified 07/02/23 15:00 Vital Signs Vital Signs - 24 hr 04/18/24 13:50 04/18/24 13:53 04/18/24 15:34 Temperature 97.9 F 98.4 F Pulse Rate 104 H 112 H Respiratory Rate 22 H 26 H Blood Pressure 164/85 H 171/68 H Pulse Oximetry 94 94 95 Oxygen Delivery Room Air Room Air 04/18/24 15:35 04/18/24 16:39 04/18/24 17:23 Temperature Pulse Rate 103 H 113 H 111 H Respiratory Rate 20 Blood Pressure 209/83 H 195/65 H Pulse Oximetry 98 Oxygen Delivery 04/18/24 18:15 Temperature Pulse Rate 112 H Respiratory Rate 20 Blood Pressure 163/80 H Pulse Oximetry 96 Oxygen Delivery Exam Narrative: Laying in a stretcher Const: General: comfortable, no acute distress, well developed, ill appearing chronically, patient obtunded and average body habitus Nutritional Appearance: average body habitus Orientation/consciousness: patient obtunded and lethargic HENMT: Head: normal to inspection, normocephalic and atraumatic Ears: hearing grossly normal bilaterally Face/Nose/Sinus: normal facial exam Face and sinus: normal facial exam Eyes: General: appearance normal, both eyes and all related structures Pupils: Equal, round and reactive pupils present EOM: EOMs intact bilaterally Neck: Neck: full ROM, no lymphadenopathy and no JVD Thyroid: thyroid normal Lymphatic: no lymphadenopathy noted Resp: Effort & Inspection: normal respiratory effort and able to speak in complete sentences Auscultation: rales and other (Coarse breath sounds) Cardio: Jugular venous distension: no JVD Rate: regular rate Rhythm: regular rhythm Heart sounds: S1 normal heart sound present and S2 normal heart sound present GI: Inspection: other (Peg tube in place) GI Palp: Yes Soft to palpation and Yes No hepatosplenomegaly present : General: Yes deferred Skin: Rashes: no rashes Wounds: no wounds Neuro: General: CN's II-XI intact bilaterally and patient obtunded Cranial nerves: Yes CN's II-XII intact bilaterally and Yes Equal, round and reactive pupils present Cognition (Neuro): abnormal cognition (Obtunded) Gait exam (Neuro): Unable to assess gait Extrem: General: normal to inspection, full ROM, no joint enlargement and no pedal edema H&P: Results Labs Labs: Short CBC 04/18/24 Range/Units 14:28 WBC 10.7 H (4.5-10.0) K/mm3 Hgb 7.7 L (14.0-18.0) g/dL Hct 25.6 L (42.0-52.0) % Plt Count 300 D (150-375) k/mm3 BMP 04/18/24 14:28 Sodium 143 Potassium 3.6 Chloride 98 Carbon Dioxide > 40 H BUN 73 H D Creatinine 4.50 H Glucose 170 H Calcium 9.1 Liver Function 04/18/24 Range/Units 14:28 Total Bilirubin 0.6 (0.2-1.3) mg/dL AST 81 H (17-59) U/L ALT 62 H (6-50) U/L Alkaline Phosphatase 111 (38-126) U/L Albumin 3.1 L (3.5-5.1) g/dL Urine 04/18/24 Range/Units 15:23 Urine Color Dark yellow (Yellow) Urine Appearance Turbid H (Clear) Urine pH 6.0 (5.0-9.0) Ur Specific [place] 1.023 (1.001-1.035) Urine Protein 3+ H (Negative) mg/dL Urine Glucose (UA) 1+ H (Negative) mg/dL Assessment and Plan Assessment and plan (1) Aspiration pneumonia: Qualifiers: Aspiration pneumonia type: unspecified Laterality: bilateral Lung location: lower lobe of lung Qualified Code(s): J69.0 - Pneumonitis due to inhalation of food and vomit Code(s): J69.0 - Pneumonitis due to inhalation of food and vomit Status: Acute (2) Atrial fibrillation with RVR: Code(s): I48.91 - Unspecified atrial fibrillation Status: Acute (3) Dementia: Code(s): F03.90 - Unspecified dementia, unspecified severity, without behavioral disturbance, psychotic disturbance, mood disturbance, and anxiety Status: Chronic (4) Hypertension: Code(s): I10 - Essential (primary) hypertension Status: Chronic (5) Feeding by G-tube: Code(s): Z93.1 - Gastrostomy status Status: Acute (6) End-stage renal disease on hemodialysis: Code(s): N18.6 - End stage renal disease; Z99.2 - Dependence on renal dialysis Status: Acute (7) Dysphagia: Code(s): R13.10 - Dysphagia, unspecified Status: Acute (8) Dementia: Qualifiers: Dementia type: unspecified type Dementia behavioral disturbance: without behavioral disturbance Qualified Code(s): F03.90 - Unspecified dementia without behavioral disturbance Code(s): F03.90 - Unspecified dementia, unspecified severity, without behavioral disturbance, psychotic disturbance, mood disturbance, and anxiety Status: Acute (9) Acute encephalopathy: Code(s): G93.40 - Encephalopathy, unspecified Status: Acute Hospitalist MIPS Advance Care Plan I have confirmed that the patient's Advanced Care Plan is present, code status is documented, or surrogate decision maker is listed in patient medical record.: Yes Medication Reconciliation I have utilized all available resources to obtain, update and review the patients current medications (includes all prescriptions, OTC, herbals, arben abis, and nutritional supplements).: Yes
[2024-04-18 19:45] LABS: Alveolar/Arterial O2 Gradient 37.6 mmHg; Base Excess ABG 10.9 mEq/l (+/-2.0); Carboxyhemoglobin 1.3 % THb (0-2.0); Fractional Inspired Oxygen 21 %; HCO3 ABG 34.5 mEq/l (22.0-26.0); Methemoglobin ABG 0.3 %THb (0-1.5); Oxygen Content ABG 10.7 %vol (16.0-22.0); Oxygen Saturation ABG 93.9 % (95.0-100.0); Oxyhemoglobin 90.7 % THb (90.0-100.0); PCO2 ABG 42.1 mmHg (35.0-45.0); PO2 ABG 61.7 mmHg (80.0-100.0); PO2 FiO2 Ratio Arterial Blood 2.94 %; Reduced Hemoglobin 7.7 %THb (0-5.0); Total Hemoglobin 8.3 g/dL (12.0-18.0)
[2024-04-18 19:49] LABS: Device ROOM AIR; Modified Allen's Test Pass; Site Drawn RIGHT RADIAL; pH ABG 7.532 (7.350-7.450)
[2024-04-19] VITALS (34 sets, daily range): BP systolic 73–187; BP diastolic 24–98; PULSE 63–123; RESP 14–29; TEMP 36.4–37.5; O2SAT 92–100; BMI 16.2
--- NOTE | 2024-04-19 08:18 | PM.CNNEP ---
Assessment and Plan Assessment and plan (1) Aspiration pneumonia: Qualifiers: Aspiration pneumonia type: unspecified Laterality: bilateral Lung location: lower lobe of lung Qualified Code(s): J69.0 - Pneumonitis due to inhalation of food and vomit Code(s): J69.0 - Pneumonitis due to inhalation of food and vomit Status: Acute Assessment and Plan: The patient has a G-tube. He does not swallow. It is possible he might have had some reflux or vomiting and aspirated. The patient is getting antibiotics and supportive care. (2) End stage renal disease: Code(s): N18.6 - End stage renal disease Status: Chronic Assessment and Plan: The patient gets dialysis 3 times a week on Tuesdays and Saturdays. He is due for dialysis today because of the holiday schedule. I notified the dialysis nurse of his admission and he is on the list to get dialysis today. Chest x-ray does not look like there is fluid overload and he has no swelling so I do not think he needs a lot of fluid off. We will take off the standard 1-2 L today. Potassium is okay so will prescribe a 3K bath (3) Hypertension: Code(s): I10 - Essential (primary) hypertension Status: Chronic Assessment and Plan: Blood pressure is under good control (4) Anemia: Code(s): D64.9 - Anemia, unspecified Status: Chronic Assessment and Plan: Hemoglobin is 7.7. Will give him some Epogen. (5) History of atrial fibrillation: Code(s): Z86.79 - Personal history of other diseases of the circulatory system Status: Acute Assessment and Plan: Patient has a history of AFib. Currently he is in sinus rhythm. (6) Dementia: Code(s): F03.90 - Unspecified dementia, unspecified severity, without behavioral disturbance, psychotic disturbance, mood disturbance, and anxiety Status: Chronic Assessment and Plan: The patient looks like he is at baseline History of Present Illness Reason for Consult Consult date: 04/20/24 Chief Complaint Chief complaint: AFib with RVR, Aspiration pneumonia History of Present Illness Narrative: [place] year old gentleman who has multiple medical problems including end-stage renal disease on dialysis Saturdays under the care of Dr. Blackman, hypertension, atrial fib senile dementia of the Alzheimer's type, and arthritis. The [facility] because of altered mental status. The patient is nonverbal at baseline. He is awake and sometimes regards the examiner. He does not follow commands. The patient was seen by the emergency room staff and found to have coarse breath sounds. Chest x-ray shows infiltrates. He looks comfortable and is not on oxygen. Tess hinton is being admitted for aspiration pneumonia. 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) Feeding by G-tube Dysphagia Chronic indwelling Patel catheter Anemia End stage renal disease End-stage renal disease on hemodialysis History of atrial fibrillation Dementia Arthritis Hypertension Chronic renal failure Surgical History Surgical History History of hip replacement Left Family History Family History Other Diabetes mellitus Hypertension Social History Social History Smoking status: Never smoker Second hand tobacco smoke exposure: No Alcohol intake: never Substance use: never Substance use type: does not use Living arrangements: with family Occupation/Education: retired Gender identity (if verbalized by the patient): Male Spiritual care concerns: No Meds Home Medications and Allergies Home Medications ?Medication ?Instructions ?Recorded ?Confirmed ?Type allopurinol 100 mg tablet 400 mg PO HS 09/19/21 04/19/24 History atorvastatin 20 mg tablet 20 mg feeding tube HS 09/19/21 04/19/24 History folic acid 1 mg tablet 1 mg feeding tube DAILY 09/19/21 04/19/24 History furosemide 80 mg tablet 80 mg feeding tube BID 09/19/21 04/19/24 History polyethylene glycol 3350 17 gram 17 g PO QAM PRN Constipation 09/19/21 04/19/24 History oral powder packet (Miralax) ropinirole 0.5 mg tablet 0.5 mg feeding tube 3XW 09/19/21 04/19/24 History diltiazem HCl 30 mg tablet 30 mg feeding tube TID 10/22/21 04/19/24 History levetiracetam 100 mg/mL oral 500 mg feeding tube BID 05/30/23 04/19/24 History solution doxazosin 2 mg tablet 1 mg feeding tube DAILY 04/19/24 04/19/24 History pantoprazole 40 mg granules 40 mg G-tube Q12H 04/19/24 04/19/24 History delayed-release for susp in packet Allergies Allergy/AdvReac Type Severity Reaction Status Date / Time No Known Allergies Allergy Verified 07/02/23 15:00 Vital Signs Vital Signs - 24 hr 04/18/24 13:50 04/18/24 13:53 04/18/24 15:34 Temperature 97.9 F 98.4 F Pulse Rate 104 H 112 H Respiratory Rate 22 H 26 H Blood Pressure 164/85 H 171/68 H Pulse Oximetry 94 94 95 Oxygen Delivery Room Air Room Air 04/18/24 15:35 04/18/24 16:39 04/18/24 17:23 Temperature Pulse Rate 103 H 113 H 111 H Respiratory Rate 20 Blood Pressure 209/83 H 195/65 H Pulse Oximetry 98 Oxygen Delivery 04/18/24 18:15 04/18/24 20:01 04/18/24 22:16 Temperature Pulse Rate 112 H 112 H 115 H Respiratory Rate 20 19 20 Blood Pressure 163/80 H 151/69 H 149/75 H Pulse Oximetry 96 95 Oxygen Delivery 04/18/24 23:00 04/18/24 23:45 04/19/24 00:30 Temperature Pulse Rate 113 H 111 H 112 H Respiratory Rate 24 H 25 H 27 H Blood Pressure 157/72 H 153/85 H 173/53 H Pulse Oximetry 95 100 Oxygen Delivery 04/19/24 01:16 04/19/24 02:01 04/19/24 02:46 Temperature Pulse Rate 112 H 111 H 117 H Respiratory Rate 28 H 26 H 24 H Blood Pressure 157/69 H 170/81 H 174/54 H Pulse Oximetry Oxygen Delivery 04/19/24 03:31 04/19/24 04:17 04/19/24 05:01 Temperature 98.6 F Pulse Rate 116 H 117 H 111 H Respiratory Rate 22 H 21 H 21 H Blood Pressure 148/62 H 147/68 H 162/93 H Pulse Oximetry 97 Oxygen Delivery 04/19/24 05:30 04/19/24 06:01 04/19/24 07:37 Temperature Pulse Rate 113 H 113 H 115 H Respiratory Rate 29 H 21 H 20 Blood Pressure 174/66 H 139/68 Pulse Oximetry 96 98 Oxygen Delivery Exam Narrative: Exam Narrative: Well developed well-nourished male in no acute distress Skin is warm and dry without rash Head normocephalic atraumatic Eyes normal sclerae and conjunctivae Mouth normal lips teeth and gums Neck no nodes no thyromegaly no carotid bruits Axillae no nodes Back no CVA tenderness Lungs symmetric and coarse breath sound to auscultation Heart regular rate and rhythm without rub or gallop Abdomen bowel sounds positive soft nontender, no HSM, masses, or bruits. Extremities no cyanosis, clubbing, or edema Pulses 2+ equal in radial arteries Psychological not anxious or depressed Neuro alert and oriented x3 motor 5/5 cranial nerves 2-12 intact reflexes 2+ and equal in the biceps and patellar tendons cerebellar normal rapid alternating movements Results Lab Results 04/20/24 05:37 04/20/24 05:37 Lab results: Most recent lab results ABG pH 7.532 (7.350-7.450) H* 04/18/24 19:37 ABG pCO2 42.1 mmHg (35.0-45.0) 04/18/24 19:37 ABG pO2 61.7 mmHg (80.0-100.0) L 04/18/24 19:37 ABG HCO3 34.5 mEq/l (22.0-26.0) H 04/18/24 19:37 ABG O2 Saturation 93.9 % (95.0-100.0) L 04/18/24 19:37 Calcium 9.1 mg/dL (8.4-10.2) 04/18/24 14:28
--- NOTE | 2024-04-19 08:52 | P.HP_ITS ---
H&P: HPI History of Present Illness Date/Time: 04/19/24 08:52 Chief Complaint: AMS Narrative: Patient is a 78-year-old male who presented to the emergency department from a long term facility due to altered mental status from baseline. Patient has known past medical history of CVA and bed ridden nonverbal, atrial fibrillation, dementia, arthritis, hypertension, ESRD on dialysis. in the emergency department patient was found to be in AFib RVR and rates between 110 to 120s with a CXR showing possible bilateral lower lobe infiltrates left greater than the right suspicious of bilateral pneumonia versus aspiration pneumonitis which patient does have past medical history of. patient currently receiving tube feeds for dysphagia secondary to CVA could be likely cause of chronic aspiration pneumonitis. Patient's WBCs 10.7 baseline around 4 was started on IV meropenem in the emergency department after also finding urinary tract infection that was leukocytes and nitrite positive. patient's hemoglobin was 7.7 likely secondary to end-stage renal disease and chronic anemia is on apixaban 2.5 b.i.d.. patient was admitted to the medical unit for further evaluation and treatment pneumonia versus pneumonitis and urinary tract infection. nephrology consulted for management of patient's end-stage renal disease. 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 (CADASIL) Feeding by G-tube End-stage renal disease on hemodialysis End stage renal disease Anemia Chronic indwelling Patel catheter Dysphagia History of atrial fibrillation Dementia Arthritis Hypertension Chronic renal failure Surgical History Surgical History History of hip replacement Left Family History Family History Other Diabetes mellitus Hypertension Social History Social History Smoking status: Never smoker Second hand tobacco smoke exposure: No Alcohol intake: never Substance use: never Substance use type: does not use Living arrangements: with family Occupation/Education: retired Gender identity (if verbalized by the patient): Male Spiritual care concerns: No Meds Home Medications and Allergies Home Medications ?Medication ?Instructions ?Recorded ?Confirmed ?Type allopurinol 100 mg tablet 400 mg PO HS 09/19/21 04/19/24 History atorvastatin 20 mg tablet 20 mg feeding tube HS 09/19/21 04/19/24 History folic acid 1 mg tablet 1 mg feeding tube DAILY 09/19/21 04/19/24 History furosemide 80 mg tablet 80 mg feeding tube BID 09/19/21 04/19/24 History polyethylene glycol 3350 17 gram 17 g PO QAM PRN Constipation 09/19/21 04/19/24 History oral powder packet (Miralax) ropinirole 0.5 mg tablet 0.5 mg feeding tube 3XW 09/19/21 04/19/24 History diltiazem HCl 30 mg tablet 30 mg feeding tube TID 10/22/21 04/19/24 History levetiracetam 100 mg/mL oral 500 mg feeding tube BID 05/30/23 04/19/24 History solution doxazosin 2 mg tablet 1 mg feeding tube DAILY 04/19/24 04/19/24 History pantoprazole 40 mg granules 40 mg G-tube Q12H 04/19/24 04/19/24 History delayed-release for susp in packet Allergies Allergy/AdvReac Type Severity Reaction Status Date / Time No Known Allergies Allergy Verified 07/02/23 15:00 Vital Signs Vital Signs - 24 hr 04/18/24 13:50 04/18/24 13:53 04/18/24 15:34 Temperature 97.9 F 98.4 F Pulse Rate 104 H 112 H Respiratory Rate 22 H 26 H Blood Pressure 164/85 H 171/68 H Pulse Oximetry 94 94 95 Oxygen Delivery Room Air Room Air 04/18/24 15:35 04/18/24 16:39 04/18/24 17:23 Temperature Pulse Rate 103 H 113 H 111 H Respiratory Rate 20 Blood Pressure 209/83 H 195/65 H Pulse Oximetry 98 Oxygen Delivery 04/18/24 18:15 04/18/24 20:01 04/18/24 22:16 Temperature Pulse Rate 112 H 112 H 115 H Respiratory Rate 20 19 20 Blood Pressure 163/80 H 151/69 H 149/75 H Pulse Oximetry 96 95 Oxygen Delivery 04/18/24 23:00 12/22/24 23:45 04/19/24 00:30 Temperature Pulse Rate 113 H 111 H 112 H Respiratory Rate 24 H 25 H 27 H Blood Pressure 157/72 H 153/85 H 173/53 H Pulse Oximetry 95 100 Oxygen Delivery 04/19/24 01:16 04/19/24 02:01 04/19/24 02:46 Temperature Pulse Rate 112 H 111 H 117 H Respiratory Rate 28 H 26 H 24 H Blood Pressure 157/69 H 170/81 H 174/54 H Pulse Oximetry Oxygen Delivery 04/19/24 03:31 04/19/24 04:17 04/19/24 05:01 Temperature 98.6 F Pulse Rate 116 H 117 H 111 H Respiratory Rate 22 H 21 H 21 H Blood Pressure 148/62 H 147/68 H 162/93 H Pulse Oximetry 97 Oxygen Delivery 04/19/24 05:30 04/19/24 06:01 04/19/24 07:37 Temperature Pulse Rate 113 H 113 H 115 H Respiratory Rate 29 H 21 H 20 Blood Pressure 174/66 H 139/68 Pulse Oximetry 96 98 Oxygen Delivery Exam Narrative: * GENERAL: Alert and oriented x1 to 2 nonverbal and bedridden. No acute distress. * EYES: EOMI. No scleral icterus. PERRLA. * HEENT: Moist mucous membranes. * LUNGS: Clear to auscultation bilaterally. No accessory muscle use. * CARDIOVASCULAR: Regular rate and rhythm. No murmur. No JVD. S1-S2 * ABDOMEN: Soft, non tenderness and non-distended. No palpable masses. * EXTREMITIES: No edema. Non-tender, Bilateral lower extremity contracted * SKIN: No rashes or lesions. Skin warm, dry. * NEUROLOGIC: * PSYCHIATRIC:Unable to assess H&P: Results Labs Labs: Short CBC 04/18/24 Range/Units 14:28 WBC 10.7 H (4.5-10.0) K/mm3 Hgb 7.7 L (14.0-18.0) g/dL Hct 25.6 L (42.0-52.0) % Plt Count 300 D (150-375) k/mm3 BMP 04/18/24 14:28 Sodium 143 Potassium 3.6 Chloride 98 Carbon Dioxide > 40 H BUN 73 H D Creatinine 4.50 H Glucose 170 H Calcium 9.1 Liver Function 04/18/24 Range/Units 14:28 Total Bilirubin 0.6 (0.2-1.3) mg/dL AST 81 H (17-59) U/L ALT 62 H (6-50) U/L Alkaline Phosphatase 111 (38-126) U/L Albumin 3.1 L (3.5-5.1) g/dL Urine 04/18/24 Range/Units 15:23 Urine Color Dark yellow (Yellow) Urine Appearance Turbid H (Clear) Urine pH 6.0 (5.0-9.0) Ur Specific [place] 1.023 (1.001-1.035) Urine Protein 3+ H (Negative) mg/dL Urine Glucose (UA) 1+ H (Negative) mg/dL Imaging CT scan - head: Radiologist's impression: EXAMINATION: CT brain wo con DATE: 04/18/2024 14:10 INDICATION: Altered mental status TECHNIQUE: Computed tomography (CT) of the head was performed without intravenous contrast. The mA was adjusted according to patient size. Iterative reconstruction technique was employed. Exam dose: 605.33 mGy-cm total exam DLP. COMPARISON: 05/28/2023 CT brain FINDINGS: Prominent bilateral vertebral artery and carotid siphon internal carotid artery calcifications. There is nonspecific diminished attenuation the cerebral white matter, likely due to chronic small vessel ischemic is. Chronic left caudate nucleus lacunar infarct. Chronic left cerebellar hemispheric infarct. There is central and cortical cerebral and cerebellar atrophy. No intracranial mass lesion or hemorrhage or recent cerebrovascular accident, m idline shift or mass effect or subdural or epidural hematoma is detected. The paranasal sinuses and mastoid air cells are well-developed and aerated. No fracture or bone destruction of the cranial vault. IMPRESSION: Cerebral atherosclerosis and chronic small vessel ischemic changes of the cerebral white matter 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 Cerebral and cerebellar atrophy No acute intracranial finding Chest x-ray: Radiologist's impression: XR chest 1V portable DATE: 04/18/2024 15:30 INDICATION: Weakness TECHNIQUE: Portable AP chest on 04/18/2024 at 1526 hours COMPARISON: 05/29/2023 CT chest FINDINGS: There are patchy bilateral pulmonary infiltrates involving primarily the lower lobes, left greater than right, suggesting bilateral pneumonia. Different diagnosis includes aspiration pneumonitis. Prominent heart size. Aortic arch calcification. No pulmonary vascular congestion or pleural effusion or pneumothorax. Right upper extremity arterial stent. Osteopenia. IMPRESSION: Patchy bilateral lower lobe infiltrates, left greater than right, suggesting bilateral pneumonia versus aspiration pneumonitis Assessment and Plan Assessment and plan (1) Sepsis: Code(s): A41.9 - Sepsis, unspecified organism Status: Acute Assessment and Plan: Sepsis without septic shock secondary to UTI and pneumonia possible wound infection * Tachycardia, leukocytosis, tachypnea, infection with pneumonia in UTI/wounds * Azithromycin and meropenem * MRSA pending may need to add vancomycin * Monitor lactic acid levels q6hr. Initial 1.0 * Repeat CBC, CMP. * Two sets of blood cultures pending * urine cultures. Suspicious of urinary tract infection * C-reactive proteins 19 * PTT and PT, INR. * neuro status checks * Chest x-ray infiltrates possible pneumonitis aspiration * Monitor albumin, monitoring of mental status. * glucose monitoring and control (2) Aspiration pneumonia: Qualifiers: Aspiration pneumonia type: unspecified Laterality: bilateral Lung location: lower lobe of lung Qualified Code(s): J69.0 - Pneumonitis due to inhalation of food and vomit Code(s): J69.0 - Pneumonitis due to inhalation of food and vomit Status: Acute Assessment and Plan: Patient with chronic multi lobular lower lobe pneumonitis likely secondary to aspiration from G-tube CXR: Patchy bilateral lower lobe infiltrates, left greater than right, suggesting bilateral pneumonia versus aspiration pneumonitis * meropenem IV/azithromycin cover for this and urinary tract infection * MRSA pending * history of dysphagia patient with G-tube * resume tube feedings slower rate * 90 degrees with meals * suctioning as needed (3) End-stage renal disease on hemodialysis: Code(s): N18.6 - End stage renal disease; Z99.2 - Dependence on renal dialysis Status: Acute Assessment and Plan: * nephrology consulted to manage dialysis * CBC/ CMP/ magnesium daily * will be dialyzed today 04/19/2024 * Acute on chronic renal failure * resume sevelamer carbonate * Avoid nephrotoxic drugs. * Monitor antihypertensive drug therapy. * Avoid NSAIDs. * Routine CMP monitoring GFR. * Monitor electrolytes especially potassium. * Antibiotic doses depending on creatinine clearance. * Pharmacy does medications. * Cr at baseline stable 4.5 (4) Atrial fibrillation with RVR: Code(s): I48.91 - Unspecified atrial fibrillation Status: Acute Assessment and Plan: Patient has history of AFib patient was in AFib RVR POA HR between 110-120's was given oral p.o. diltiazem 30 mg in the ER unsure when he got his last dose of Cardizem home dose * EKG reviewed still showing AFib RVR at 15 * gave IV push 10 mg diltiazem * will resume patient's p.o. Cardizem per tube 30 mg t.i.d. * will resume patient's apixaban * cardiac monitoring * HR well controlled now (5) Hypertension: Code(s): I10 - Essential (primary) hypertension Status: Chronic Assessment and Plan: * resume Cardizem * will add IV push hydralazine p.r.n. for systolic over 180 if needed * will resume patient's Lasix and is planned for dialysis today (6) Dementia: Code(s): F03.90 - Unspecified dementia, unspecified severity, without behavioral disturbance, psychotic disturbance, mood disturbance, and anxiety Status: Chronic Assessment and Plan: custodial reported patient was altered from baseline with his dementia this is likely secondary to his urinary tract infection * meropenem IV for UTI * previous history multiple CVAs neuro checks (7) Dysphagia: Code(s): R13.10 - Dysphagia, unspecified Status: Acute Assessment and Plan: patient with multiple cerebral infarcts likely cause patient's dysphagia peg tube in place * will resume tube feedings slower rate at 30 and increase as tolerated initiated on Nepro * consulted dietitian * continue to monitor for aspiration and residual * patient will need to remain at least 45? to reduce risk of aspiration (8) UTI (urinary tract infection): Code(s): N39.0 - Urinary tract infection, site not specified Status: Acute Assessment and Plan: patient's urine was nitrate and leukocytosis positive history of indwelling catheter for retention however was straight cathed in the ER * IV meropenem pending cultures and sensitivities * will need to monitor for urinary retention * will resume patient's Flomax (9) Anemia: Code(s): D64.9 - Anemia, unspecified Status: Chronic Assessment and Plan: patient with ESRD likely cause of patient's chronic anemia * hemoglobin 7.7 POA * nephrology giving Epogen * transfused PRBCs if Hgb <7.0 * watch for any overt bleeding patient is Eliquis (10) Sacral wound: Code(s): S31.000A - Unspecified open wound of lower back and pelvis without penetration into retroperitoneum, initial encounter Status: Acute Assessment and Plan: Patient with multiple pressure wounds throughout sacral wound is open * Wound consulted * Q 2 Turns * Mepilex * Float heels Plan Code status: Full code per patient DVT prophylaxis: Eliquis Stress ulcer prophylaxis: Protonix 40 daily PT/OT notes: patient bedridden Disposition: patient was admitted to the medical unit for further evaluation and treatment sepsis secondary to aspiration pneumonia and urinary tract infection will plan for dialysis today continue to monitor blood cultures and urine cultures will remain on IV meropenem and azithromycin MRSA pending but may need to vancomycin will deescalate per cultures. Plan will be for patient to return to long term facility when medically stable Quality VTE Prophylaxis VTE prophylaxis: mechanical ordered and pharmacologic ordered -Patient's previous records reviewed on admission -ER notes reviewed in detail on admission -discussed all findings and current treatment plan with patient/Family/POA -Consultations reviewed for recommendations -Patient's disposition for safe discharge discussed with case preparer and liner Dictation performed by [employer] direct speech recognition software, therefore project admin variants and typographical errors may occur. Hospitalist MIPS Advance Care Plan I have confirmed that the patient's Advanced Care Plan is present, code status is documented, or surrogate decision maker is listed in patient medical record.: Yes Medication Reconciliation I have utilized all available resources to obtain, update and review the patients current medications (includes all prescriptions, OTC, herbals, cannabis, and nutritional supplements).: Yes The patient is not eligible for med reconciliation; the patient is in a emergent medical situation where delaying treatment would jeopardize the patients health.: No
[2024-04-19 09:30] LABS: Basophils Percent Auto 0.3 % (0.2-1.2); Eosinophils Percent Auto 0.3 % (0-4.4); Hematocrit 29.7 % (42.0-52.0); Immature Granulocyte Absolute 0.11 K/mm3 (0.00-0.031); Immature Granulocyte Percent A 0.9 % (0-0.5); Lymphocytes Absolute Auto 0.92 K/mm3 (0.9-3.2); Lymphocytes Percent Auto 7.1 % (18.3-44.2); Mean Corpuscular HGB Conc 30.3 g/dl (32-36); Mean Corpuscular Hemoglobin 29.4 pg (26-34); Mean Corpuscular Volume 97.1 fl (80-100); Mean Platelet Volume 10.4 fl (7.4-10.4); Monocytes Absolute Auto 0.8 K/mm3 (0.1-0.6); Monocytes Percent Auto 5.8 % (2.6-8.5); Neutrophils Absolute Auto 11.1 K/mm3 (1.3-6.7); Neutrophils Percent Auto 85.6 % (45.5-73.1); Platelet Count Result 386 k/mm3 (150-375); Red Blood Count 3.06 M/mm3 (4.6-6.20); Red Cell Distribution Width 16.5 % (11.5-14.5); White Blood Count 12.9 K/mm3 (4.5-10.0)
[2024-04-19 09:47] LABS: Magnesium 2.6 mg/dL (1.6-2.3)
[2024-04-19 10:00] LABS: Alanine Aminotransferase 79 U/L (6-50); Albumin Level 3.8 g/dL (3.5-5.1); Alkaline Phosphatase 108 U/L (38-126); Anion Gap 9 mmol/L (4-12); Aspartate Amino Transferase 92 U/L (17-59); Bilirubin,Total 0.9 mg/dL (0.2-1.3); Blood Urea Nitrogen 90 mg/dL (9-20); Carbon Dioxide 38 mmol/L (22-30); Chloride 99 mmol/L (98-107); Estimated CRCL calculation 9 ml/min; Estimated Glomerular Filt Rate 12; Glucose 146 mg/dL (65-110); Potassium 4.1 mmol/L (3.4-5.0); Sodium 146 mmol/L (137-145)
[2024-04-19 11:30] LABS: Hepatitis B Surface Antigen Negative (Negative)
[2024-04-19 11:36] LABS: HAV RESULT Negative (Negative); Hepatitis B Core IgM Result Negative (Negative)
[2024-04-19 11:47] LABS: Hepatitis C Virus Antibody Negative (Negative)
[2024-04-19] MEDS: AZITHROMYCIN 500 MG/NS 250 ML 500 MG/250 ML BAG 250 MG IVPB (11:57)
[2024-04-19] MEDS: levETIRAcetam 500MG/NACL 100ML 500 MG/100 ML BAG 400 MG IVPB (11:57)
[2024-04-19] MEDS: PANTOPRAZOLE SODIUM IV 40 MG VIAL IV PUSH (11:58)
[2024-04-19] MEDS: dilTIAZem HCl INJ 25 MG/5 ML VIAL 10 MG IV PUSH (12:04)
[2024-04-19] MEDS: HEPARIN SODIUM 1,000 UNITS/ML VIAL 1000 UNITS IV PUSH (14:20)
[2024-04-19] MEDS: HEPARIN SODIUM 1,000 UNITS/ML VIAL 500 UNITS IV PUSH (14:21)
[2024-04-19] MEDS: EPOETIN ALFA-EPBX 10,000 UNITS/ML VIAL 10000 UNITS IV PUSH (14:22)
[2024-04-19] MEDS: ALBUMIN HUMAN 25% 12.5 GM/50ML 50 ML IVPB (15:04)
[2024-04-19 15:48] LABS: MRSA (PCR) DETECTED (NOT DETECTE)
--- NOTE | 2024-04-19 18:27 | PC.NURSE ---
This patient, Jules Mitchell, was received from imu/dialysis on 04/19/24 at 1828. Patient/family oriented to unit policies and routines
[2024-04-19] MEDS: MEROPENEM 500 MG/NS 100 ML 500 MG/100 ML BAG 200 MG IVPB (18:29)
[2024-04-19 18:33] LABS: Glucose Point of Care 95 mg/dl (65-105)
[2024-04-19] MEDS: FUROSEMIDE 80 MG TABLET FEED TUBE (18:54)
[2024-04-19] MEDS: dilTIAZem HCL 30 MG TABLET FEED TUBE (18:54)
[2024-04-19] MEDS: VANCOMYCIN 1,000 MG/NS 250 ML 1,000 MG/250 ML BAG 250 MG IVPB (19:43)
[2024-04-19] MEDS: dilTIAZem HCL 30 MG TABLET PO (20:22)
[2024-04-19] MEDS: LANSOPRAZOLE ODT 30 MG TAB.RAP.DR FEED TUBE (20:23)
[2024-04-19] MEDS: ATORVASTATIN 20 MG TABLET FEED TUBE (20:23)
[2024-04-19] MEDS: levETIRAcetam ORAL SOL 500 MG/5 ML UDC FEED TUBE (20:23)
[2024-04-19 23:29] LABS: Glucose Point of Care 140 mg/dl (65-105)
[2024-04-20] VITALS (8 sets, daily range): BP systolic 110–184; BP diastolic 55–91; PULSE 99–121; RESP 14–16; TEMP 36.6–37.4; O2SAT 93–98
[2024-04-20] MEDS: dilTIAZem HCL 60 MG TABLET PO (01:37)
--- NOTE | 2024-04-20 01:47 | PC.NURSE ---
[facility] spoke with Dr Estrada by phone regarding patients HR after last doses of cardizem 30mg. See MAR for new orders.
[2024-04-20 05:51] LABS: Basophils Percent Auto 0.2 % (0.2-1.2); Hematocrit 25.2 % (42.0-52.0); Hemoglobin 7.7 g/dL (14.0-18.0); Immature Granulocyte Absolute 0.09 K/mm3 (0.00-0.031); Immature Granulocyte Percent A 0.7 % (0-0.5); Lymphocytes Absolute Auto 0.77 K/mm3 (0.9-3.2); Lymphocytes Percent Auto 6.1 % (18.3-44.2); Mean Corpuscular HGB Conc 30.6 g/dl (32-36); Mean Corpuscular Hemoglobin 29.4 pg (26-34); Mean Corpuscular Volume 96.2 fl (80-100); Monocytes Absolute Auto 0.7 K/mm3 (0.1-0.6); Monocytes Percent Auto 5.5 % (2.6-8.5); Neutrophils Absolute Auto 11.1 K/mm3 (1.3-6.7); Neutrophils Percent Auto 87.5 % (45.5-73.1); Platelet Count Result 363 k/mm3 (150-375); Red Blood Count 2.62 M/mm3 (4.6-6.20); Red Cell Distribution Width 16.3 % (11.5-14.5); White Blood Count 12.7 K/mm3 (4.5-10.0)
[2024-04-20] MEDS: dilTIAZem HCL 30 MG TABLET FEED TUBE ×3 (06:05→21:11)
[2024-04-20 06:13] LABS: Alanine Aminotransferase 53 U/L (6-50); Albumin Level 3.6 g/dL (3.5-5.1); Alkaline Phosphatase 88 U/L (38-126); Anion Gap 6 mmol/L (4-12); Aspartate Amino Transferase 64 U/L (17-59); Bilirubin,Total 0.9 mg/dL (0.2-1.3); Blood Urea Nitrogen 43 mg/dL (9-20); Calcium 9.4 mg/dL (8.4-10.2); Carbon Dioxide 36 mmol/L (22-30); Chloride 97 mmol/L (98-107); Estimated CRCL calculation 13 ml/min; Estimated Glomerular Filt Rate 27; Glucose 201 mg/dL (65-110); Magnesium 2.2 mg/dL (1.6-2.3); Sodium 139 mmol/L (137-145)
[2024-04-20 06:18] LABS: Glucose Point of Care 225 mg/dl (65-105)
[2024-04-20 06:22] LABS: Vancomycin Random 14.4 ug/mL (10-20)
[2024-04-20] MEDS: FUROSEMIDE 80 MG TABLET FEED TUBE ×2 (08:02→17:14)
[2024-04-20] MEDS: levETIRAcetam ORAL SOL 500 MG/5 ML UDC FEED TUBE ×2 (08:02→21:11)
[2024-04-20] MEDS: DOXAZOSIN MESYLATE 1 MG TABLET FEED TUBE (08:02)
[2024-04-20] MEDS: FOLIC ACID 1 MG TABLET FEED TUBE (08:02)
[2024-04-20] MEDS: PANTOPRAZOLE SODIUM IV 40 MG VIAL IV PUSH (08:02)
[2024-04-20] MEDS: LANSOPRAZOLE ODT 30 MG TAB.RAP.DR FEED TUBE ×2 (08:02→21:11)
[2024-04-20] MEDS: rOPINIRole HCL 0.5 MG TABLET FEED TUBE (08:18)
[2024-04-20] MEDS: dilTIAZem HCl INJ 25 MG/5 ML VIAL 10 MG IV PUSH (08:26)
--- NOTE | 2024-04-20 09:26 | PM.PNNEP ---
Progress Note: A&P Assessment and Plan (1) Aspiration pneumonia: Qualifiers: Aspiration pneumonia type: unspecified Laterality: bilateral Lung location: lower lobe of lung Qualified Code(s): J69.0 - Pneumonitis due to inhalation of food and vomit Code(s): J69.0 - Pneumonitis due to inhalation of food and vomit Status: Acute Assessment and Plan: The patient has a G-tube. He does not swallow. The working diagnosis is aspiration pneumonia The patient looks like he is breathing okay right now. He is getting Zithromax meropenem and vancomycin to treat this (2) End stage renal disease: Code(s): N18.6 - End stage renal disease Status: Chronic Assessment and Plan: The patient gets dialysis 3 times a week on Tuesdays and Saturdays. He is due for dialysis today because of the holiday schedule. The patient had his dialysis yesterday and it went well. 1L was removed Patient looks comfortable right now. Electrolytes look okay (3) Hypertension: Code(s): I10 - Essential (primary) hypertension Status: Chronic Assessment and Plan: Blood pressure is high today. Ranging in the 150-180s. He did not receive any Cardizem for 36hours. Will get him back on his outpatient meds and see how the blood pressure does (4) Anemia: Code(s): D64.9 - Anemia, unspecified Status: Chronic Assessment and Plan: Hemoglobin is 7.7. This is been ranging between 7 and 9.4 He received Epogen yesterday (5) History of atrial fibrillation: Code(s): Z86.79 - Personal history of other diseases of the circulatory system Status: Acute Assessment and Plan: Patient has a history of AFib. Currently he is in sinus rhythm. (6) Dementia: Code(s): F03.90 - Unspecified dementia, unspecified severity, without behavioral disturbance, psychotic disturbance, mood disturbance, and anxiety Status: Chronic Assessment and Plan: The patient looks like he is at baseline Subjective Date/time seen: 04/20/24 09:26 Interval history: Patient is not communicative. No shortness of breath. Nursing staff working with patient. Exam Narrative: WDWN non communicative in NAD skin no rash head ncat lungs clear cor reg no rub abd BS+ nontender and soft ext no edema. Objective Data Vital Signs Vital Signs: Vital Signs - 24 hr 04/19/24 12:04 04/19/24 12:23 04/19/24 14:00 Temperature 98.7 F Pulse Rate 118 H Respiratory Rate 22 H Blood Pressure 187/72 H Pulse Oximetry 98 98 Oxygen Delivery Room Air Oxygen Flow Rate 0 Fraction of Inspired Oxygen 0 04/19/24 14:00 04/19/24 14:17 04/19/24 14:30 Temperature 98.4 F Pulse Rate 109 H 97 85 Respiratory Rate 19 Blood Pressure 115/51 L 113/48 L 112/58 L Pulse Oximetry 97 Oxygen Delivery Oxygen Flow Rate Fraction of Inspired Oxygen 04/19/24 14:45 04/19/24 15:00 04/19/24 15:15 Temperature Pulse Rate 88 63 100 Respiratory Rate Blood Pressure 120/35 L 73/42 L 130/98 H Pulse Oximetry Oxygen Delivery Oxygen Flow Rate Fraction of Inspired Oxygen 04/19/24 15:30 04/19/24 15:45 04/19/24 16:00 Temperature Pulse Rate 68 101 H 97 Respiratory Rate Blood Pressure 116/54 L 129/37 L 135/24 L Pulse Oximetry Oxygen Delivery Oxygen Flow Rate Fraction of Inspired Oxygen 04/19/24 16:15 04/19/24 16:30 04/19/24 16:45 Temperature Pulse Rate 86 78 96 Respiratory Rate Blood Pressure 111/28 L 105/44 L 111/62 Pulse Oximetry Oxygen Delivery Oxygen Flow Rate Fraction of Inspired Oxygen 04/19/24 17:00 04/19/24 17:15 04/19/24 17:30 Temperature Pulse Rate 102 H 98 98 Respiratory Rate Blood Pressure 111/57 L 105/37 L 97/49 L Pulse Oximetry Oxygen Delivery Oxygen Flow Rate Fraction of Inspired Oxygen 04/19/24 17:50 04/19/24 17:57 04/19/24 18:27 Temperature 98.2 F 97.6 F Pulse Rate 98 100 120 H Respiratory Rate 16 18 Blood Pressure 97/51 L 113/50 L 146/78 H Pulse Oximetry 97 92 Oxygen Delivery Oxygen Flow Rate Fraction of Inspired Oxygen 04/19/24 20:00 04/19/24 20:00 04/20/24 00:00 Temperature 99.0 F Pulse Rate 64 123 H 121 H Respiratory Rate 14 Blood Pressure 158/57 H Pulse Oximetry 93 Oxygen Delivery Oxygen Flow Rate Fraction of Inspired Oxygen 04/20/24 01:28 04/20/24 06:00 04/20/24 08:00 Temperature 98 F Pulse Rate 121 H 119 H Respiratory Rate 14 Blood Pressure 168/83 H 184/72 H Pulse Oximetry 98 98 Oxygen Delivery Nasal Cannula Oxygen Flow Rate 2 Fraction of Inspired Oxygen Intake/Output Intake/Output: Intake & Output 04/17/24 04/18/24 04/19/24 04/20/24 23:59 23:59 23:59 23:59 Intake Total 600 0 Output Total 400 1000 Balance 200 -1000 0 Meds/Results Medications: Active Medications Generic Name Dose Route Start Last Admin Trade Name Freq PRN Reason Stop Dose Admin Acetaminophen 650 mg 04/19/24 08:46 Acetaminophen 650 Mg Suppository RECTAL Q6H PRN Mild Pain (1-3) or Fever Allopurinol 100 mg/ 400 mg 04/19/24 21:00 04/19/24 20:23 Allopurinol 300 mg PO 400 mg HS LOKESH Administration Atorvastatin Calcium 20 mg 04/19/24 21:00 04/19/24 20:23 Atorvastatin 20 Mg Tablet FEED TUBE 20 mg HS LOKESH Administration Dextrose 12.5 gm 04/19/24 14:29 Dextrose 50% 25 Gm/50 Ml Syringe IV PUSH PRN PRN Hypoglycemia Protocol Diltiazem HCl 30 mg 04/19/24 22:00 04/20/24 06:05 Diltiazem Hcl 30 Mg Tablet FEED TUBE 30 mg Q8HR LOKESH Administration Doxazosin Mesylate 1 mg 04/20/24 09:00 04/20/24 08:02 Doxazosin Mesylate 1 Mg Tablet FEED TUBE 1 mg DAILY LOKESH Administration Folic Acid 1 mg 04/20/24 09:00 04/20/24 08:02 Folic Acid 1 Mg Tablet FEED TUBE 1 mg DAILY LOKESH Administration Furosemide 80 mg 04/19/24 17:00 04/20/24 08:02 Furosemide 80 Mg Tablet FEED TUBE 80 mg BID LOKESH Administration Glucagon 1 mg 04/19/24 14:29 Glucagon For Inj 1 Mg Vial IM PRN PRN Hypoglycemia Protocol Glucose 15 gm 04/19/24 14:29 Glucose Oral Gel 15 Gm Of Glucse In 37.5 Gm Tube PO PRN PRN Hypoglycemia Protocol Hydralazine HCl 10 mg 04/19/24 14:20 Hydralazine Hcl 20 Mg/Ml Vial IV PUSH Q8H PRN Blood Pressure - High Meropenem 500 mg in 100 mls @ 200 mls/hr 04/19/24 16:00 04/19/24 18:29 IVPB 200 mls/hr Q24H LOKESH Administration Azithromycin 500 mg in 250 mls @ 250 mls/hr 04/19/24 12:00 04/19/24 11:57 Zithromax IVPB 250 mls/hr Q24H LOKESH Administration Dextrose 1,000 mls @ 100 mls/hr 04/19/24 14:29 Dextrose 5% 1,000 Ml IVPB PRN PRN Hypoglycemia Protocol Vancomycin HCl 750 mg in 250 mls @ 250 mls/hr 04/20/24 19:00 Vancomycin 750 Mg/Ns 250 Ml IVPB 04/20/24 19:59 ONCE ONE Insulin Aspart 2 - 5 units 04/19/24 17:00 04/19/24 18:33 Insulin Aspart (*Bkc) 100 Units/Ml SUB-Q Not Given TIDWM LOKESH Protocol Lansoprazole 30 mg 04/19/24 21:00 04/20/24 08:02 Lansoprazole Odt 30 Mg Tab.Rap.Dr FEED TUBE 30 mg Q12HR LOKESH Administration Levetiracetam 500 mg 04/19/24 21:00 04/20/24 08:02 Levetiracetam Oral Caitlyn 500 Mg/5 Ml Udc FEED TUBE 500 mg Q12HR LOKESH Administration Ondansetron HCl 4 mg 04/19/24 08:40 Ondansetron Inj 4 Mg/2 Ml Vial IV PUSH Q6H PRN Nausea And Vomiting Pantoprazole Sodium 40 mg 04/19/24 09:25 04/20/24 08:02 Pantoprazole Sodium Iv 40 Mg Vial IV PUSH 40 mg QAM LOKESH Administration Polyethylene Glycol 17 gm 04/19/24 14:20 Polyethylene Glycol 3350 17 Gm Powd.Pack PO QAM PRN Constipation Ropinirole HCl 0.5 mg 04/20/24 09:00 04/20/24 08:18 Ropinirole Hcl 0.5 Mg Tablet FEED TUBE 0.5 mg [id number] LOKESH Administration Vancomycin HCl 1 each 04/19/24 17:35 Vancomycin For Hemodialysis IVPB PRN PRN Vancomycin Protocol Radiology Results: ITS Impressions Head CT 04/18/24 14:30 IMPRESSION: Cerebral atherosclerosis and chronic small vessel ischemic changes of the cerebral white matter 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 Cerebral and cerebellar atrophy No acute intracranial finding Chest X-Ray 04/18/24 15:57 IMPRESSION: Patchy bilateral lower lobe infiltrates, left greater than right, suggesting bilateral pneumonia versus aspiration pneumonitis Labs Labs: Laboratory Results - last 24 hr 04/19/24 04/19/24 04/19/24 09:21 09:23 13:08 WBC 12.9 H RBC 3.06 L Hgb 9.0 L Hct 29.7 L MCV 97.1 MCH 29.4 MCHC 30.3 L RDW 16.5 H Plt Count 386 H MPV 10.4 Immature Gran % (Auto) 0.9 H Neut % (Auto) 85.6 H Lymph % (Auto) 7.1 L [place] % (Auto) 5.8 Eos % (Auto) 0.3 Baso % (Auto) 0.3 Lymph # (Auto) 0.92 [place] # (Auto) 0.8 H Eos # (Auto) 0.0 Baso # (Auto) 0.0 Abs Immat Gran (auto) 0.11 H Absolute Neuts (auto) 11.1 H Absolute Nucleated RBC 0.000 Nucleated RBC % 0.0 Sodium 146 H Potassium 4.1 Chloride 99 Carbon Dioxide 38 H Anion Gap 9 BUN 90 H D Creatinine 5.60 H Estim Creat Clear Calc 9 Estimated GFR 12 L Glucose 146 H POC Capillary Glucose Calcium 10.0 Magnesium 2.6 H Total Bilirubin 0.9 AST 92 H ALT 79 H Alkaline Phosphatase 108 Total Protein 9.0 H Albumin 3.8 Nasal MRSA (PCR) Detected A* Random Vancomycin Hepatitis A IgM Ab Negative Hep Bs Antigen Negative Hep B Core IgM Ab Negative Hepatitis C Ab Screen Negative 04/19/24 04/19/24 04/20/24 18:31 23:26 05:37 WBC 12.7 H RBC 2.62 L Hgb 7.7 L Hct 25.2 L MCV 96.2 MCH 29.4 MCHC 30.6 L RDW 16.3 H Plt Count 363 MPV 10.0 Immature Gran % (Auto) 0.7 H Neut % (Auto) 87.5 H Lymph % (Auto) 6.1 L [place] % (Auto) 5.5 Eos % (Auto) 0.0 Baso % (Auto) 0.2 Lymph # (Auto) 0.77 L [place] # (Auto) 0.7 H Eos # (Auto) 0.0 Baso # (Auto) 0.0 Abs Immat Gran (auto) 0.09 H Absolute Neuts (auto) 11.1 H Absolute Nucleated RBC 0.000 Nucleated RBC % 0.0 Sodium 139 Potassium 4.0 Chloride 97 L Carbon Dioxide 36 H Anion Gap 6 BUN 43 H D Creatinine 2.80 H Estim Creat Clear Calc 13 Estimated GFR 27 L Glucose 201 H POC Capillary Glucose 95 140 H Calcium 9.4 Magnesium 2.2 Total Bilirubin 0.9 AST 64 H ALT 53 H Alkaline Phosphatase 88 Total Protein 8.0 Albumin 3.6 Nasal MRSA (PCR) Random Vancomycin 14.4 Hepatitis A IgM Ab Hep Bs Antigen Hep B Core IgM Ab Hepatitis C Ab Screen 04/20/24 06:11 WBC RBC Hgb Hct MCV MCH MCHC RDW Plt Count MPV Immature Gran % (Auto) Neut % (Auto) Lymph % (Auto) [place] % (Auto) Eos % (Auto) Baso % (Auto) Lymph # (Auto) [place] # (Auto) Eos # (Auto) Baso # (Auto) Abs Immat Gran (auto) Absolute Neuts (auto) Absolute Nucleated RBC Nucleated RBC % Sodium Potassium Chloride Carbon Dioxide Anion Gap BUN Creatinine Estim Creat Clear Calc Estimated GFR Glucose POC Capillary Glucose 225 H Calcium Magnesium Total Bilirubin AST ALT Alkaline Phosphatase Total Protein Albumin Nasal MRSA (PCR) Random Vancomycin Hepatitis A IgM Ab Hep Bs Antigen Hep B Core IgM Ab Hepatitis C Ab Screen
--- NOTE | 2024-04-20 09:51 | P.PNIM_ITS ---
Progress Note: A&P Assessment and Plan (1) Sepsis: Code(s): A41.9 - Sepsis, unspecified organism Status: Acute Assessment and Plan: Sepsis without septic shock secondary to UTI and pneumonia possible wound inf ection * Tachycardia, leukocytosis, tachypnea, infection with pneumonia in UTI/wounds * Azithromycin and meropenem * MRSA Positive * Monitor lactic acid levels q6hr. Initial 1.0 * Repeat CBC, CMP. * Two sets of blood cultures pending * urine cultures. Suspicious of urinary tract infection * C-reactive proteins 19 * PTT and PT, INR. * neuro status checks * Chest x-ray infiltrates possible pneumonitis aspiration * Monitor albumin, monitoring of mental status. * glucose monitoring and control 04/20/24: * gram-positive cocci x1 bottle could be contaminant * patient is still on vancomycin we will continue until MRSA ruled out his MRSA is positive (2) Aspiration pneumonia: Qualifiers: Aspiration pneumonia type: unspecified Laterality: bilateral Lung location: lower lobe of lung Qualified Code(s): J69.0 - Pneumonitis due to inhalation of food and vomit Code(s): J69.0 - Pneumonitis due to inhalation of food and vomit Status: Acute Assessment and Plan: Patient with chronic multi lobular lower lobe pneumonitis likely secondary to aspiration from G-tube CXR: Patchy bilateral lower lobe infiltrates, left greater than right, suggesting bilateral pneumonia versus aspiration pneumonitis * meropenem IV/azithromycin cover for this and urinary tract infection * MRSA positive * history of dysphagia patient with G-tube * resume tube feedings slower rate * 90 degrees with meals * suctioning as needed 04/20/24: * Tolerating tub feedings * Continue with Tameka/Azith/Vanc pending cultures de-escalate per sensitivities (3) End-stage renal disease on hemodialysis: Code(s): N18.6 - End stage renal disease; Z99.2 - Dependence on renal dialysis Status: Acute Assessment and Plan: * nephrology consulted to manage dialysis * CBC/ CMP/ magnesium daily * will be dialyzed today 04/19/2024 * Acute on chronic renal failure * resume sevelamer carbonate * Avoid nephrotoxic drugs. * Monitor antihypertensive drug therapy. * Avoid NSAIDs. * Routine CMP monitoring GFR. * Monitor electrolytes especially potassium. * Antibiotic doses depending on creatinine clearance. * Pharmacy does medications. * Cr at baseline stable 4.5 04/20/24: * Electrolytes stable * Cr 2.40 * Patient BP is brittle he has high BP but soft during dialysis use antihypertensive medications with caution (4) Atrial fibrillation with RVR: Code(s): I48.91 - Unspecified atrial fibrillation Status: Acute Assessment and Plan: Patient has history of AFib patient was in AFib RVR POA HR between 110-120's was given oral p.o. diltiazem 30 mg in the ER unsure when he got his last dose of Cardizem home dose * EKG reviewed still showing AFib RVR at 15 * gave IV push 10 mg diltiazem * will resume patient's p.o. Cardizem per tube 30 mg t.i.d. * will resume patient's apixaban * cardiac monitoring * HR well controlled now 04/20/24 * patient is still having episodes AFib RVR give another dose IV Cardizem likely secondary to current acute infectious process * Gave 1x dose IVP 10mg Cardizem * may need to increase patient's Cardizem 30 t.i.d. to 60 t.i.d. but need to monitor closely patient gets soft BP's during dialysis * Was not getting his Cardizem for over a day (5) Hypertension: Code(s): I10 - Essential (primary) hypertension Status: Chronic Assessment and Plan: * resume Cardizem * will add IV push hydralazine p.r.n. for systolic over 180 if needed * will resume patient's Lasix and is planned for dialysis today (6) Dementia: Code(s): F03.90 - Unspecified dementia, unspecified severity, without behavioral disturbance, psychotic disturbance, mood disturbance, and anxiety Status: Chronic Assessment and Plan: half-way reported patient was altered from baseline with his dementia this is likely secondary to his urinary tract infection * meropenem IV for UTI * previous history multiple CVAs neuro checks (7) Dysphagia: Code(s): R13.10 - Dysphagia, unspecified Status: Acute Assessment and Plan: patient with multiple cerebral infarcts likely cause patient's dysphagia peg tube in place * will resume tube feedings slower rate at 30 and increase as tolerated initiated on Nepro * consulted dietitian * continue to monitor for aspiration and residual * patient will need to remain at least 45? to reduce risk of aspiration (8) UTI (urinary tract infection): Code(s): N39.0 - Urinary tract infection, site not specified Status: Acute Assessment and Plan: patient's urine was nitrate and leukocytosis positive history of indwelling catheter for retention however was straight cathed in the ER * IV meropenem pending cultures and sensitivities * will need to monitor for urinary retention * will resume patient's Flomax (9) Anemia: Code(s): D64.9 - Anemia, unspecified Status: Chronic Assessment and Plan: patient with ESRD likely cause of patient's chronic anemia * hemoglobin 7.7 POA * nephrology giving Epogen * transfused PRBCs if Hgb <7.0 * watch for any overt bleeding patient is Eliquis (10) Sacral wound: Code(s): S31.000A - Unspecified open wound of lower back and pelvis without penetration into retroperitoneum, initial encounter Status: Acute Assessment and Plan: Patient with multiple pressure wounds throughout sacral wound is open * Wound consulted * Q 2 Turns * Mepilex * Float heels 04/20/24: * gram positive cocci in 1 aerobic bottle blood cultures could be contaminant but also could be coming from patient's wounds/PNA * continue with vancomycin until ruled out Plan Code status: Full code per patient DVT prophylaxis: Eliquis Stress ulcer prophylaxis: Protonix 40 daily PT/OT notes: patient bedridden Disposition: patient was admitted to the medical unit for further evaluation and treatment sepsis secondary to aspiration pneumonia and urinary tract infection will plan for dialysis today continue to monitor blood cultures and urine cultures will remain on IV meropenem and azithromycin MRSA pending but may need to vancomycin will deescalate per cultures. Plan will be for patient to return to retirement facility when medically stable Time Spent With Patient Time with patient: 15 - 25 minutes Subjective Date/time seen: 04/20/24 09:51 Interval history: Patient was a 78-year-old male who was admitted for further evaluation and treatment of aspiration pneumonia with sepsis without septic shock, AFib RVR and ESRD on dialysis. 04/20/24: Patient resting comfortably at time of visit, HR still elevated but improving, Cardizem PO resumed and BP better. Patient appeared in no acute distress and is tolerating tube feedings with no residual reported. Review of Systems Review of Systems: ROS unobtainable: Yes unobtainable due to medical condition and unobtainable due to mental status Exam Narrative: * GENERAL: Alert and oriented x1 does have eye tracking nonverbal and bedridden . No acute distress. * EYES: EOMI. No scleral icterus. PERRLA. * HEENT: Moist mucous membranes. * LUNGS: diminished on auscultation bilaterally. No accessory muscle use. * CARDIOVASCULAR: irregular irregular . S1-S2 * ABDOMEN: Soft, non tenderness and non-distended. G-tube LUQ * EXTREMITIES: No edema. Non-tender, Bilateral lower extremity contracted * SKIN: No rashes or lesions. Skin warm, dry. * NEUROLOGIC: unable to assess * PSYCHIATRIC:Unable to assess Objective Data Vital Signs Vital Signs: Vital Signs - 24 hr 04/19/24 12:04 04/19/24 12:23 04/19/24 14:00 Temperature 98.7 F Pulse Rate 118 H Respiratory Rate 22 H Blood Pressure 187/72 H Pulse Oximetry 98 98 Oxygen Delivery Room Air Oxygen Flow Rate 0 Fraction of Inspired Oxygen 0 04/19/24 14:00 04/19/24 14:17 04/19/24 14:30 Temperature 98.4 F Pulse Rate 109 H 97 85 Respiratory Rate 19 Blood Pressure 115/51 L 113/48 L 112/58 L Pulse Oximetry 97 Oxygen Delivery Oxygen Flow Rate Fraction of Inspired Oxygen 04/19/24 14:45 04/19/24 15:00 04/19/24 15:15 Temperature Pulse Rate 88 63 100 Respiratory Rate Blood Pressure 120/35 L 73/42 L 130/98 H Pulse Oximetry Oxygen Delivery Oxygen Flow Rate Fraction of Inspired Oxygen 04/19/24 15:30 04/19/24 15:45 04/19/24 16:00 Temperature Pulse Rate 68 101 H 97 Respiratory Rate Blood Pressure 116/54 L 129/37 L 135/24 L Pulse Oximetry Oxygen Delivery Oxygen Flow Rate Fraction of Inspired Oxygen 04/19/24 16:15 04/19/24 16:30 04/19/24 16:45 Temperature Pulse Rate 86 78 96 Respiratory Rate Blood Pressure 111/28 L 105/44 L 111/62 Pulse Oximetry Oxygen Delivery Oxygen Flow Rate Fraction of Inspired Oxygen 04/19/24 17:00 04/19/24 17:15 04/19/24 17:30 Temperature Pulse Rate 102 H 98 98 Respiratory Rate Blood Pressure 111/57 L 105/37 L 97/49 L Pulse Oximetry Oxygen Delivery Oxygen Flow Rate Fraction of Inspired Oxygen 04/19/24 17:50 04/19/24 17:57 04/19/24 18:27 Temperature 98.2 F 97.6 F Pulse Rate 98 100 120 H Respiratory Rate 16 18 Blood Pressure 97/51 L 113/50 L 146/78 H Pulse Oximetry 97 92 Oxygen Delivery Oxygen Flow Rate Fraction of Inspired Oxygen 04/19/24 20:00 04/19/24 20:00 04/20/24 00:00 Temperature 99.0 F Pulse Rate 64 123 H 121 H Respiratory Rate 14 Blood Pressure 158/57 H Pulse Oximetry 93 Oxygen Delivery Oxygen Flow Rate Fraction of Inspired Oxygen 04/20/24 01:28 04/20/24 06:00 04/20/24 08:00 Temperature 98 F Pulse Rate 121 H 119 H Respiratory Rate 14 Blood Pressure 168/83 H 184/72 H Pulse Oximetry 98 98 Oxygen Delivery Nasal Cannula Oxygen Flow Rate 2 Fraction of Inspired Oxygen 04/20/24 08:00 Temperature Pulse Rate 117 H Respiratory Rate Blood Pressure Pulse Oximetry Oxygen Delivery Oxygen Flow Rate Fraction of Inspired Oxygen Intake/Output Intake/Output: Intake & Output 04/17/24 04/18/24 04/19/24 04/20/24 23:59 23:59 23:59 23:59 Intake Total 600 0 Output Total 400 1000 Balance 200 -1000 0 Meds/Results Medications: Active Medications Generic Name Dose Route Start Last Admin Trade Name Freq PRN Reason Stop Dose Admin Acetaminophen 650 mg 04/19/24 08:46 Acetaminophen 650 Mg Suppository RECTAL Q6H PRN Mild Pain (1-3) or Fever Allopurinol 100 mg/ 400 mg 04/19/24 21:00 04/19/24 20:23 Allopurinol 300 mg PO 400 mg HS LOKESH Administration Atorvastatin Calcium 20 mg 04/19/24 21:00 04/19/24 20:23 Atorvastatin 20 Mg Tablet FEED TUBE 20 mg HS LOKESH Administration Dextrose 12.5 gm 04/19/24 14:29 Dextrose 50% 25 Gm/50 Ml Syringe IV PUSH PRN PRN Hypoglycemia Protocol Diltiazem HCl 30 mg 04/19/24 22:00 04/20/24 06:05 Diltiazem Hcl 30 Mg Tablet FEED TUBE 30 mg Q8HR LOKESH Administration Doxazosin Mesylate 1 mg 04/20/24 09:00 04/20/24 08:02 Doxazosin Mesylate 1 Mg Tablet FEED TUBE 1 mg DAILY LOKESH Administration Folic Acid 1 mg 04/20/24 09:00 04/20/24 08:02 Folic Acid 1 Mg Tablet FEED TUBE 1 mg DAILY LOKESH Administration Furosemide 80 mg 04/19/24 17:00 04/20/24 08:02 Furosemide 80 Mg Tablet FEED TUBE 80 mg BID LOKESH Administration Glucagon 1 mg 04/19/24 14:29 Glucagon For Inj 1 Mg Vial IM PRN PRN Hypoglycemia Protocol Glucose 15 gm 04/19/24 14:29 Glucose Oral Gel 15 Gm Of Glucse In 37.5 Gm Tube PO PRN PRN Hypoglycemia Protocol Hydralazine HCl 10 mg 04/19/24 14:20 Hydralazine Hcl 20 Mg/Ml Vial IV PUSH Q8H PRN Blood Pressure - High Meropenem 500 mg in 100 mls @ 200 mls/hr 04/19/24 16:00 04/19/24 18:29 IVPB 200 mls/hr Q24H LOKESH Administration Azithromycin 500 mg in 250 mls @ 250 mls/hr 04/19/24 12:00 04/19/24 11:57 Zithromax IVPB 250 mls/hr Q24H LOKESH Administration Dextrose 1,000 mls @ 100 mls/hr 04/19/24 14:29 Dextrose 5% 1,000 Ml IVPB PRN PRN Hypoglycemia Protocol Vancomycin HCl 750 mg in 250 mls @ 250 mls/hr 04/20/24 19:00 Vancomycin 750 Mg/Ns 250 Ml IVPB 04/20/24 19:59 ONCE ONE Insulin Aspart 2 - 5 units 04/20/24 12:00 Insulin Aspart (*Bkc) 100 Units/Ml SUB-Q Q6HR LOKESH Protocol Lansoprazole 30 mg 04/19/24 21:00 04/20/24 08:02 Lansoprazole Odt 30 Mg Tab.Rap.Dr FEED TUBE 30 mg Q12HR LOKESH Administration Levetiracetam 500 mg 04/19/24 21:00 04/20/24 08:02 Levetiracetam Oral Caitlyn 500 Mg/5 Ml Udc FEED TUBE 500 mg Q12HR LOKESH Administration Ondansetron HCl 4 mg 04/19/24 08:40 Ondansetron Inj 4 Mg/2 Ml Vial IV PUSH Q6H PRN Nausea And Vomiting Pantoprazole Sodium 40 mg 04/19/24 09:25 04/20/24 08:02 Pantoprazole Sodium Iv 40 Mg Vial IV PUSH 40 mg QAM LOKESH Administration Polyethylene Glycol 17 gm 04/19/24 14:20 Polyethylene Glycol 3350 17 Gm Powd.Pack PO QAM PRN Constipation Ropinirole HCl 0.5 mg 04/20/24 09:00 04/20/24 08:18 Ropinirole Hcl 0.5 Mg Tablet FEED TUBE 0.5 mg TuThSa@0900 LOKESH Administration Vancomycin HCl 1 each 04/19/24 17:35 Vancomycin For Hemodialysis IVPB PRN PRN Vancomycin Protocol Radiology Results: ITS Impressions Head CT 04/18/24 14:30 IMPRESSION: Cerebral atherosclerosis and chronic small vessel ischemic changes of the cerebral white matter 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 Cerebral and cerebellar atrophy No acute intracranial finding Chest X-Ray 04/18/24 15:57 IMPRESSION: Patchy bilateral lower lobe infiltrates, left greater than right, suggesting bilateral pneumonia versus aspiration pneumonitis Labs Labs: Laboratory Results - last 24 hr 04/19/24 04/19/24 04/19/24 09:21 09:23 13:08 WBC RBC Hgb Hct MCV MCH MCHC RDW Plt Count MPV Immature Gran % (Auto) Neut % (Auto) Lymph % (Auto) Robeson % (Auto) Eos % (Auto) Baso % (Auto) Lymph # (Auto) Robeson # (Auto) Eos # (Auto) Baso # (Auto) Abs Immat Gran (auto) Absolute Neuts (auto) Absolute Nucleated RBC Nucleated RBC % Sodium 146 H Potassium 4.1 Chloride 99 Carbon Dioxide 38 H Anion Gap 9 BUN 90 H D Creatinine 5.60 H Estim Creat Clear Calc 9 Estimated GFR 12 L Glucose 146 H POC Capillary Glucose Calcium 10.0 Magnesium Total Bilirubin 0.9 AST 92 H ALT 79 H Alkaline Phosphatase 108 Total Protein 9.0 H Albumin 3.8 Nasal MRSA (PCR) Detected A* Random Vancomycin Hepatitis A IgM Ab Negative Hep Bs Antigen Negative Hep B Core IgM Ab Negative Hepatitis C Ab Screen Negative 04/19/24 04/19/24 04/20/24 18:31 23:26 05:37 WBC 12.7 H RBC 2.62 L Hgb 7.7 L Hct 25.2 L MCV 96.2 MCH 29.4 MCHC 30.6 L RDW 16.3 H Plt Count 363 MPV 10.0 Immature Gran % (Auto) 0.7 H Neut % (Auto) 87.5 H Lymph % (Auto) 6.1 L Robeson % (Auto) 5.5 Eos % (Auto) 0.0 Baso % (Auto) 0.2 Lymph # (Auto) 0.77 L Robeson # (Auto) 0.7 H Eos # (Auto) 0.0 Baso # (Auto) 0.0 Abs Immat Gran (auto) 0.09 H Absolute Neuts (auto) 11.1 H Absolute Nucleated RBC 0.000 Nucleated RBC % 0.0 Sodium 139 Potassium 4.0 Chloride 97 L Carbon Dioxide 36 H Anion Gap 6 BUN 43 H D Creatinine 2.80 H Estim Creat Clear Calc 13 Estimated GFR 27 L Glucose 201 H POC Capillary Glucose 95 140 H Calcium 9.4 Magnesium 2.2 Total Bilirubin 0.9 AST 64 H ALT 53 H Alkaline Phosphatase 88 Total Protein 8.0 Albumin 3.6 Nasal MRSA (PCR) Random Vancomycin 14.4 Hepatitis A IgM Ab Hep Bs Antigen Hep B Core IgM Ab Hepatitis C Ab Screen 04/20/24 06:11 WBC RBC Hgb Hct MCV MCH MCHC RDW Plt Count MPV Immature Gran % (Auto) Neut % (Auto) Lymph % (Auto) Robeson % (Auto) Eos % (Auto) Baso % (Auto) Lymph # (Auto) Robeson # (Auto) Eos # (Auto) Baso # (Auto) Abs Immat Gran (auto) Absolute Neuts (auto) Absolute Nucleated RBC Nucleated RBC % Sodium Potassium Chloride Carbon Dioxide Anion Gap BUN Creatinine Estim Creat Clear Calc Estimated GFR Glucose POC Capillary Glucose 225 H Calcium Magnesium Total Bilirubin AST ALT Alkaline Phosphatase Total Protein Albumin Nasal MRSA (PCR) Random Vancomycin Hepatitis A IgM Ab Hep Bs Antigen Hep B Core IgM Ab Hepatitis C Ab Screen Quality VTE Prophylaxis VTE prophylaxis: mechanical ordered and pharmacologic ordered -Patient's previous records reviewed on admission -ER notes reviewed in detail on admission -discussed all findings and current treatment plan with patient/Family/POA -Consultations reviewed for recommendations -Patient's disposition for safe discharge discussed with case hardener Dictation performed by [employer] direct speech recognition software, therefore fine grade operator variants and typographical errors may occur. Hospitalist MIPS Advance Care Plan I have confirmed that the patient's Advanced Care Plan is present, code status is documented, or surrogate decision maker is listed in patient medical record.: Yes Medication Reconciliation I have utilized all available resources to obtain, update and review the patients current medications (includes all prescriptions, OTC, herbals, cannabis, and nutritional supplements).: Yes The patient is not eligible for med reconciliation; the patient is in a emergent medical situation where delaying treatment would jeopardize the patients health.: No
[2024-04-20] MEDS: AZITHROMYCIN 500 MG/NS 250 ML 500 MG/250 ML BAG 250 MG IVPB (11:32)
--- NOTE | 2024-04-20 11:34 | PCNFU ---
Nutrition Follow-Up Complete: Severe malnutrition related to chronic disease as evidenced by severe muscle wasting and fat loss. goal: Meet estimated protein energy needs Patient is meeting goal. No new goal. Pt current nutrition is Nepro at 50 ml/hr. Last recorded weight is 47.3 kg, up from 46.9 kg on admit. Bowel Motility: +BM reported 04/20 Labs Reviewed:Glu 201, Cr 2.8, BUN 43, GFR 27, Hct 25.2, Hgb 7.7 Meds Noted: Protonix, Lipitor, Folic Acid, Lasix,, NovoLog, Keppra Skin: Pressure ulcers noted see wound assessment. Additional Notes: G tube feedings of Nepro at 40 ml/hr with plans to advance to goal rate today to 55 ml/hr per nursing. Patient does require increased kcal and protein needs 2/2 to wounds. Tube feedings at goal rate providing 2178 kcal/98 gm protein/ 800 ml water. Flush 30 ml q 4 hours. Na level WNL today will monitor for any flush recommendations. Agree with diet orders. Monitoring tube feeding tolerance, weights, labs, output, plan of care Follow up Tuesdays and Fridays
[2024-04-20 11:40] LABS: Glucose Point of Care 247 mg/dl (65-105)
--- NOTE | 2024-04-20 11:43 | PCNFU ---
Nutrition Follow-Up Complete: Severe malnutrition related to chronic disease as evidenced by severe muscle wasting and fat loss. Goal: Meet estimated protein energy needs Patient is progressing towards goal. We will continue current goal. Pt current nutrition is Nepro at 40 ml/hr. Nutrition recommendation: goal rate at 55 ml/hr Last recorded weight is 47.3 kg, up from 46.9 kg on admit Bowel Motility: +BM reported 04/20 Labs Reviewed: Glu, 201 BUN 43, Cr 2.8,GFR 27 Meds Noted: NovoLog, Folic Acid, Keppra, Lasix, Protonix, Lipitor. Skin: See wound assessment-pressure ulcers present. Additional Notes: PEG tube feedings of Nepro at 40 ml/hr with plans to advance to goal rate of 55 ml/hr today. Flush 30 ml q 4 hours. Will monitor Na lab for any flush recommendations. Tube feedings at goal rate providing 2178 kcal/98 gm protein/800 ml water. kcal and protein needs are being met 100% at 35 kcal/kg and 1.8 gm/kg protein. Increased kcal needs for wound healing. Agree with diet order. Monitoring tube feeding tolerance, weights, labs, output, plan of care Follow up Tuesdays and Fridays
[2024-04-20] MEDS: INSULIN ASPART (*BKC) 100 UNITS/ML SUB-Q ×2 (12:23→18:20)
[2024-04-20] MEDS: MEROPENEM 500 MG/NS 100 ML 500 MG/100 ML BAG 200 MG IVPB (17:13)
[2024-04-20] MEDS: VANCOMYCIN 750 MG/NS 250 ML 750 MG/250 ML BAG 125 MG IVPB (17:52)
[2024-04-20 18:16] LABS: Glucose Point of Care 214 mg/dl (65-105)
[2024-04-20] MEDS: ATORVASTATIN 20 MG TABLET FEED TUBE (21:11)
[2024-04-21] VITALS (11 sets, daily range): BP systolic 112–150; BP diastolic 41–72; PULSE 69–135; RESP 14–35; TEMP 36.9–37.4; O2SAT 91–100
[2024-04-21 00:02] LABS: Glucose Point of Care 189 mg/dl (65-105)
[2024-04-21] MEDS: dilTIAZem HCL 30 MG TABLET FEED TUBE (05:24)
[2024-04-21 05:54] LABS: Basophils Percent Auto 0.1 % (0.2-1.2); Eosinophils Absolute Auto 0.1 K/mm3 (0-0.3); Eosinophils Percent Auto 0.4 % (0-4.4); Immature Granulocyte Absolute 0.11 K/mm3 (0.00-0.031); Immature Granulocyte Percent A 0.9 % (0-0.5); Lymphocytes Absolute Auto 0.82 K/mm3 (0.9-3.2); Lymphocytes Percent Auto 6.6 % (18.3-44.2); Mean Corpuscular HGB Conc 30.6 g/dl (32-36); Mean Corpuscular Hemoglobin 29.5 pg (26-34); Mean Corpuscular Volume 96.3 fl (80-100); Mean Platelet Volume 10.4 fl (7.4-10.4); Monocytes Absolute Auto 0.4 K/mm3 (0.1-0.6); Monocytes Percent Auto 3.4 % (2.6-8.5); Neutrophils Percent Auto 88.6 % (45.5-73.1); Platelet Count Result 289 k/mm3 (150-375); Red Blood Count 2.17 M/mm3 (4.6-6.20); Red Cell Distribution Width 16.4 % (11.5-14.5); White Blood Count 12.4 K/mm3 (4.5-10.0)
[2024-04-21] MEDS: INSULIN ASPART (*BKC) 100 UNITS/ML SUB-Q (05:57)
[2024-04-21 06:00] LABS: Glucose Point of Care 218 mg/dl (65-105)
[2024-04-21 06:12] LABS: Hemoglobin 6.4 g/dL (14.0-18.0)
[2024-04-21 06:13] LABS: Hematocrit 20.9 % (42.0-52.0)
[2024-04-21 06:45] LABS: Alanine Aminotransferase 52 U/L (6-50); Albumin Level 3.1 g/dL (3.5-5.1); Alkaline Phosphatase 107 U/L (38-126); Anion Gap 7 mmol/L (4-12); Aspartate Amino Transferase 63 U/L (17-59); Bilirubin,Total 0.5 mg/dL (0.2-1.3); Blood Urea Nitrogen 72 mg/dL (9-20); Carbon Dioxide 32 mmol/L (22-30); Chloride 100 mmol/L (98-107); Estimated CRCL calculation 10 ml/min; Estimated Glomerular Filt Rate 18; Glucose 198 mg/dL (65-110); Magnesium 2.3 mg/dL (1.6-2.3); Potassium 3.4 mmol/L (3.4-5.0); Sodium 139 mmol/L (137-145)
--- NOTE | 2024-04-21 07:28 | PM.PNNEP ---
Progress Note: A&P Assessment and Plan (1) Aspiration pneumonia: Qualifiers: Aspiration pneumonia type: unspecified Laterality: bilateral Lung location: lower lobe of lung Qualified Code(s): J69.0 - Pneumonitis due to inhalation of food and vomit Code(s): J69.0 - Pneumonitis due to inhalation of food and vomit Status: Acute Assessment and Plan: The patient has a G-tube. He does not swallow. The working diagnosis is aspiration pneumonia The patient looks like he is breathing okay right now. The patient is afebrile. White cell count is in the low teens. He is getting Zithromax meropenem and vancomycin to treat this. (2) End stage renal disease: Code(s): N18.6 - End stage renal disease Status: Chronic Assessment and Plan: The patient gets dialysis 3 times a week on Tuesdays and Saturdays. He had dialysis on Friday and will get another treatment tomorrow. Patient looks comfortable right now. Electrolytes look okay Volume status looks good (3) Hypertension: Code(s): I10 - Essential (primary) hypertension Status: Chronic Assessment and Plan: Blood pressure is high today. Ranging from 110-150 He did not receive any Cardizem for 36hours. He is back on his home medication (4) Anemia: Code(s): D64.9 - Anemia, unspecified Status: Chronic Assessment and Plan: Hemoglobin is lower. He is getting Epogen Hemoglobin is much lower this morning. Consider transfusion? Will repeat the CBC to be sure it is really this low Will hold heparin on dialysis tomorrow and increase the Epogen Since he is on antibiotics several not check iron who would not give iron while on a to biotics anyway. (5) History of atrial fibrillation: Code(s): Z86.79 - Personal history of other diseases of the circulatory system Status: Acute Assessment and Plan: Patient has a history of AFib. Currently he is in sinus rhythm. (6) Dementia: Code(s): F03.90 - Unspecified dementia, unspecified severity, without behavioral disturbance, psychotic disturbance, mood disturbance, and anxiety Status: Chronic Assessment and Plan: The patient looks like he is at baseline Subjective Date/time seen: 04/21/24 07:28 Interval history: Patient is not communicative. Eyes open but does not regard examiner Looks comfortable lying in bed Exam Narrative: WDWN non communicative in NAD skin no rash or subQ nodules head ncat lungs clear bilateral cor reg no rub or gallop abd BS+ nontender and soft ext no edema. Objective Data Vital Signs Vital Signs: Vital Signs - 24 hr 04/20/24 08:00 04/20/24 08:00 04/20/24 11:38 Temperature Pulse Rate 117 H 116 H Respiratory Rate Blood Pressure 128/55 L Pulse Oximetry 98 Oxygen Delivery Nasal Cannula Oxygen Flow Rate 2 Fraction of Inspired Oxygen 04/20/24 12:00 04/20/24 12:00 04/20/24 16:00 Temperature 99.4 F Pulse Rate 112 H 117 H 112 H Respiratory Rate 14 Blood Pressure 110/91 H Pulse Oximetry 93 Oxygen Delivery Oxygen Flow Rate Fraction of Inspired Oxygen 04/20/24 16:00 04/20/24 20:00 04/20/24 20:00 Temperature 98.9 F 99.0 F Pulse Rate 99 117 H 117 H Respiratory Rate 16 14 14 Blood Pressure 138/88 144/85 H Pulse Oximetry 98 97 97 Oxygen Delivery Nasal Cannula Oxygen Flow Rate 4 Fraction of Inspired Oxygen 0 04/20/24 20:00 04/21/24 00:00 04/21/24 00:00 Temperature 98.6 F Pulse Rate 112 H 100 96 Respiratory Rate 14 Blood Pressure 149/67 H Pulse Oximetry 100 Oxygen Delivery Oxygen Flow Rate Fraction of Inspired Oxygen 04/21/24 04:00 04/21/24 04:00 Temperature 98.6 F Pulse Rate 104 H 69 Respiratory Rate 14 Blood Pressure 131/60 Pulse Oximetry 100 Oxygen Delivery Oxygen Flow Rate Fraction of Inspired Oxygen Intake/Output Intake/Output: Intake & Output 04/18/24 04/19/24 04/20/24 04/21/24 23:59 23:59 23:59 23:59 Intake Total 600 350 250 706 Output Total 400 1000 Balance 200 -650 250 706 Meds/Results Medications: Active Medications Generic Name Dose Route Start Last Admin Trade Name Freq PRN Reason Stop Dose Admin Acetaminophen 650 mg 04/19/24 08:46 Acetaminophen 650 Mg Suppository RECTAL Q6H PRN Mild Pain (1-3) or Fever Allopurinol 100 mg/ 400 mg 04/19/24 21:00 04/20/24 21:11 Allopurinol 300 mg PO 400 mg HS LOKESH Administration Atorvastatin Calcium 20 mg 04/19/24 21:00 04/20/24 21:11 Atorvastatin 20 Mg Tablet FEED TUBE 20 mg HS LOKESH Administration Dextrose 12.5 gm 04/19/24 14:29 Dextrose 50% 25 Gm/50 Ml Syringe IV PUSH PRN PRN Hypoglycemia Protocol Diltiazem HCl 30 mg 04/19/24 22:00 04/21/24 05:24 Diltiazem Hcl 30 Mg Tablet FEED TUBE 30 mg Q8HR LOKESH Administration Doxazosin Mesylate 1 mg 04/20/24 09:00 04/20/24 08:02 Doxazosin Mesylate 1 Mg Tablet FEED TUBE 1 mg DAILY LOKESH Administration Folic Acid 1 mg 04/20/24 09:00 04/20/24 08:02 Folic Acid 1 Mg Tablet FEED TUBE 1 mg DAILY LOKESH Administration Furosemide 80 mg 04/19/24 17:00 04/20/24 17:14 Furosemide 80 Mg Tablet FEED TUBE 80 mg BID LOKESH Administration Glucagon 1 mg 04/19/24 14:29 Glucagon For Inj 1 Mg Vial IM PRN PRN Hypoglycemia Protocol Glucose 15 gm 04/19/24 14:29 Glucose Oral Gel 15 Gm Of Glucse In 37.5 Gm Tube PO PRN PRN Hypoglycemia Protocol Hydralazine HCl 10 mg 04/19/24 14:20 Hydralazine Hcl 20 Mg/Ml Vial IV PUSH Q8H PRN Blood Pressure - High Meropenem 500 mg in 100 mls @ 200 mls/hr 04/19/24 16:00 04/20/24 17:13 IVPB 200 mls/hr Q24H LOKESH Administration Azithromycin 500 mg in 250 mls @ 250 mls/hr 04/19/24 12:00 04/20/24 11:32 Zithromax IVPB 250 mls/hr Q24H LOKESH Administration Dextrose 1,000 mls @ 100 mls/hr 04/19/24 14:29 Dextrose 5% 1,000 Ml IVPB PRN PRN Hypoglycemia Protocol Sodium Chloride 250 mls @ 30 mls/hr 04/21/24 06:26 Normal Saline Iv IV CONT 04/21/24 14:45 .Q8H20M STA Insulin Aspart 2 - 5 units 04/20/24 12:00 04/21/24 05:57 Insulin Aspart (*Bkc) 100 Units/Ml SUB-Q 2 units Q6HR LOKESH Administration Protocol Lansoprazole 30 mg 04/19/24 21:00 04/20/24 21:11 Lansoprazole Odt 30 Mg Tab.Rap.Dr FEED TUBE 30 mg Q12HR LOKESH Administration Levetiracetam 500 mg 04/19/24 21:00 04/20/24 21:11 Levetiracetam Oral Caitlyn 500 Mg/5 Ml Udc FEED TUBE 500 mg Q12HR LOKESH Administration Ondansetron HCl 4 mg 04/19/24 08:40 Ondansetron Inj 4 Mg/2 Ml Vial IV PUSH Q6H PRN Nausea And Vomiting Pantoprazole Sodium 40 mg 04/19/24 09:25 04/20/24 08:02 Pantoprazole Sodium Iv 40 Mg Vial IV PUSH 40 mg QAM LOKESH Administration Polyethylene Glycol 17 gm 04/19/24 14:20 Polyethylene Glycol 3350 17 Gm Powd.Pack PO QAM PRN Constipation Ropinirole HCl 0.5 mg 04/20/24 09:00 04/20/24 08:18 Ropinirole Hcl 0.5 Mg Tablet FEED TUBE 0.5 mg [email or web address] LOKESH Administration Vancomycin HCl 1 each 04/19/24 17:35 Vancomycin For Hemodialysis IVPB PRN PRN Vancomycin Protocol Radiology Results: ITS Impressions Head CT 04/18/24 14:30 IMPRESSION: Cerebral atherosclerosis and chronic small vessel ischemic changes of the cerebral white matter 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 Cerebral and cerebellar atrophy No acute intracranial finding Chest X-Ray 04/18/24 15:57 IMPRESSION: Patchy bilateral lower lobe infiltrates, left greater than right, suggesting bilateral pneumonia versus aspiration pneumonitis Labs Labs: Laboratory Results - last 24 hr 04/20/24 04/20/24 04/20/24 11:30 18:14 23:51 WBC RBC Hgb Hct MCV MCH MCHC RDW Plt Count MPV Immature Gran % (Auto) Neut % (Auto) Lymph % (Auto) [place] % (Auto) Eos % (Auto) Baso % (Auto) Lymph # (Auto) [place] # (Auto) Eos # (Auto) Baso # (Auto) Abs Immat Gran (auto) Absolute Neuts (auto) Absolute Nucleated RBC Nucleated RBC % Sodium Potassium Chloride Carbon Dioxide Anion Gap BUN Creatinine Estim Creat Clear Calc Estimated GFR Glucose POC Capillary Glucose 247 H 214 H 189 H Calcium Magnesium Total Bilirubin AST ALT Alkaline Phosphatase Total Protein Albumin Enhanced Crossmatch 12/25/24 12/25/24 12/25/24 05:37 05:54 07:07 WBC 12.4 H RBC 2.17 L Hgb 6.4 L* Hct 20.9 L* MCV 96.3 MCH 29.5 MCHC 30.6 L RDW 16.4 H Plt Count 289 MPV 10.4 Immature Gran % (Auto) 0.9 H Neut % (Auto) 88.6 H Lymph % (Auto) 6.6 L [place] % (Auto) 3.4 Eos % (Auto) 0.4 Baso % (Auto) 0.1 L Lymph # (Auto) 0.82 L [place] # (Auto) 0.4 Eos # (Auto) 0.1 Baso # (Auto) 0.0 Abs Immat Gran (auto) 0.11 H Absolute Neuts (auto) 11.0 H Absolute Nucleated RBC 0.000 Nucleated RBC % 0.0 Sodium 139 Potassium 3.4 Chloride 100 Carbon Dioxide 32 H Anion Gap 7 BUN 72 H D Creatinine 4.00 H Estim Creat Clear Calc 10 Estimated GFR 18 L Glucose 198 H POC Capillary Glucose 218 H Calcium 9.0 Magnesium 2.3 Total Bilirubin 0.5 AST 63 H ALT 52 H Alkaline Phosphatase 107 Total Protein 7.0 Albumin 3.1 L Enhanced Crossmatch See Detail
[2024-04-21 08:13] LABS: Hematocrit 20.4 % (42.0-52.0); Hemoglobin 6.4 g/dL (14.0-18.0)
[2024-04-21] MEDS: levETIRAcetam ORAL SOL 500 MG/5 ML UDC FEED TUBE ×2 (09:49→20:11)
[2024-04-21] MEDS: LANSOPRAZOLE ODT 30 MG TAB.RAP.DR FEED TUBE ×2 (09:49→20:11)
[2024-04-21] MEDS: FUROSEMIDE 80 MG TABLET FEED TUBE ×2 (09:49→17:27)
[2024-04-21] MEDS: DOXAZOSIN MESYLATE 1 MG TABLET FEED TUBE (09:49)
[2024-04-21] MEDS: PANTOPRAZOLE SODIUM IV 40 MG VIAL IV PUSH (09:49)
[2024-04-21] MEDS: FOLIC ACID 1 MG TABLET FEED TUBE (09:49)
[2024-04-21 12:17] LABS: Glucose Point of Care 177 mg/dl (65-105)
[2024-04-21] MEDS: dilTIAZem HCl INJ 25 MG/5 ML VIAL 10 MG IV PUSH (13:05)
[2024-04-21] MEDS: AZITHROMYCIN 500 MG/NS 250 ML 500 MG/250 ML BAG 250 MG IVPB (13:05)
[2024-04-21] MEDS: dilTIAZem HCL 60 MG TABLET FEED TUBE ×2 (14:55→20:11)
--- NOTE | 2024-04-21 17:25 | P.PNIM_ITS ---
Progress Note: A&P Assessment and Plan (1) Sepsis: Code(s): A41.9 - Sepsis, unspecified organism Status: Acute Assessment and Plan: Sepsis without septic shock secondary to UTI and pneumonia vs/+ possible wound infection * Tachycardia, leukocytosis, tachypnea, pneumonia on CXR, UA with possible UTI, possible wounds infections. * Initial blood cultures growing Staph Hominis, repeat blood culture NGTD. * Currently on Azithromycin, meropenem and Vancomycin. * MRSA Positive * UA with no bacteria and urine WBC's wnl. * C-reactive proteins 19. * Chest x-ray with infiltrates and possible pneumonitis aspiration. * Continue current IV abx. (2) Aspiration pneumonia: Qualifiers: Aspiration pneumonia type: unspecified Laterality: bilateral Lung location: lower lobe of lung Qualified Code(s): J69.0 - Pneumonitis due to inhalation of food and vomit Code(s): J69.0 - Pneumonitis due to inhalation of food and vomit Status: Acute Assessment and Plan: Patient with chronic multi lobular lower lobe pneumonitis likely secondary to aspiration from G-tube CXR: Patchy bilateral lower lobe infiltrates, left greater than right, suggesting bilateral pneumonia versus aspiration pneumonitis * Mgt as above. * Currently on meropenem IV, azithromycin and Vancomycin. * MRSA positive * history of dysphagia and patient with G-tube * Tube feedings resumed at slower rate. * suctioning as needed * Continue to follow cultures. (3) End-stage renal disease on hemodialysis: Code(s): N18.6 - End stage renal disease; Z99.2 - Dependence on renal dialysis Status: Acute Assessment and Plan: * nephrology following and managing hemo dialysis * Continue sevelamer carbonate * Avoid nephrotoxic drugs. * Monitor electrolytes and correct as needed. * Meds dosing per renal function. (4) Atrial fibrillation with RVR: Code(s): I48.91 - Unspecified atrial fibrillation Status: Acute Assessment and Plan: Hx of AFib and was in AFib RVR on admission. * Still with episodes of tachycardia > 110. * Diltiazem dose slightly increased. * Continue apixaban * Continue cardiac monitoring * Continue to adjust meds as needed. (5) Hypertension: Code(s): I10 - Essential (primary) hypertension Status: Chronic Assessment and Plan: * BP currently better controlled. * Continue to adjust meds as needed. (6) Dementia: Code(s): F03.90 - Unspecified dementia, unspecified severity, without behavioral disturbance, psychotic disturbance, mood disturbance, and anxiety Status: Chronic Assessment and Plan: Home meds resumed. (7) Dysphagia: Code(s): R13.10 - Dysphagia, unspecified Status: Acute Assessment and Plan: * Continue to TF and adjust rate as tolerated. * Seen by dietitian and we'll follow recommendations. * continue to monitor for aspiration and residual. (8) UTI (urinary tract infection): Code(s): N39.0 - Urinary tract infection, site not specified Status: Acute Assessment and Plan: patient's urine was nitrate and leukocytosis positive history of indwelling catheter for retention however was straight cathed in the ER * Urine culture negative. * No treatment required. (9) Anemia: Code(s): D64.9 - Anemia, unspecified Status: Chronic Assessment and Plan: patient with ESRD likely cause of patient's chronic anemia * hemoglobin 6.4 this AM. * Scheduled for transfusion. * Continue to monitor Hgb closely and transfuse for Hgb <7. * nephrology giving Epogen. * We'll consider GI consult. * Monitor for obvious bleeding signs with Eliquis use. (10) Sacral wound: Code(s): S31.000A - Unspecified open wound of lower back and pelvis without penetration into retroperitoneum, initial encounter Status: Acute Assessment and Plan: Patient with multiple pressure wounds throughout and sacral wound open * Wound nurse consulted * Q 2 Turns * Mepilex on sacrum. * continue with vancomycin for now. Plan Code status: Full code per patient DVT prophylaxis: Eliquis Stress ulcer prophylaxis: Protonix 40 daily PT/OT notes: patient bedridden Disposition: patient was admitted to the medical unit for further evaluation and treatment sepsis secondary to aspiration pneumonia. Continue hemo-dialysis per nephrology scheduling. Continue IV meropenem and azithromycin MRSA for aspiration PNA for now. Time Spent With Patient Time with patient: 25 - 35 minutes Subjective Date/time seen: 04/21/24 11:25 Patient non-verbal but looks comfortable. Interval history: Pt calm on bedrest and looks to be in no acute distress. Review of Systems Review of Systems: ROS unobtainable: Yes unobtainable due to medical condition and unobtainable due to mental status Exam Narrative: * GENERAL: Alert but non-verbal. No acute distress. * EYES: EOMI. No scleral icterus. PERRLA. * HEENT: Moist mucous membranes. * LUNGS: Coarse and congested. No accessory muscle use. * CARDIOVASCULAR: irregular irregular . S1-S2 * ABDOMEN: Soft, non tenderness and non-distended. G-tube LUQ * EXTREMITIES: No edema. Non-tender, Bilateral lower extremity contracted * SKIN: No rashes or lesions. Skin warm, dry. * NEUROLOGIC: Non-verbal. Jacek LE contracture. * PSYCHIATRIC:Unable to assess due to non-verbal status. Objective Data Vital Signs Vital Signs: Vital Signs - 24 hr 04/20/24 20:00 04/20/24 20:00 04/20/24 20:00 Temperature 99.0 F Pulse Rate 117 H 117 H 112 H Respiratory Rate 14 14 Blood Pressure 144/85 H Pulse Oximetry 97 97 Oxygen Delivery Nasal Cannula Oxygen Flow Rate 4 Fraction of Inspired Oxygen 0 04/21/24 00:00 04/21/24 00:00 04/21/24 04:00 Temperature 98.6 F Pulse Rate 100 96 104 H Respiratory Rate 14 Blood Pressure 149/67 H Pulse Oximetry 100 Oxygen Delivery Oxygen Flow Rate Fraction of Inspired Oxygen 04/21/24 04:00 04/21/24 08:00 04/21/24 09:41 Temperature 98.6 F 99.4 F Pulse Rate 69 109 H 94 Respiratory Rate 14 25 H Blood Pressure 131/60 139/57 L Pulse Oximetry 100 100 Oxygen Delivery Oxygen Flow Rate Fraction of Inspired Oxygen 04/21/24 09:50 04/21/24 12:00 04/21/24 12:17 Temperature 99.3 F Pulse Rate 135 H 108 H Respiratory Rate 35 H 26 H Blood Pressure 112/72 Pulse Oximetry 100 Oxygen Delivery Oxygen Flow Rate Fraction of Inspired Oxygen 04/21/24 16:00 04/21/24 16:36 Temperature 99.4 F Pulse Rate 102 H 111 H Respiratory Rate 26 H Blood Pressure 127/41 L Pulse Oximetry 98 Oxygen Delivery Oxygen Flow Rate Fraction of Inspired Oxygen Intake/Output Intake/Output: Intake & Output 04/18/24 04/19/24 04/20/24 04/21/24 23:59 23:59 23:59 23:59 Intake Total 600 350 500 706 Output Total 400 1000 Balance 200 -650 500 706 Meds/Results Medications: Active Medications Generic Name Dose Route Start Last Admin Trade Name Freq PRN Reason Stop Dose Admin Acetaminophen 650 mg 04/19/24 08:46 Acetaminophen 650 Mg Suppository RECTAL Q6H PRN Mild Pain (1-3) or Fever Allopurinol 100 mg/ 400 mg 04/19/24 21:00 04/20/24 21:11 Allopurinol 300 mg PO 400 mg HS LOKESH Administration Atorvastatin Calcium 20 mg 04/19/24 21:00 04/20/24 21:11 Atorvastatin 20 Mg Tablet FEED TUBE 20 mg HS LOKESH Administration Dextrose 12.5 gm 04/19/24 14:29 Dextrose 50% 25 Gm/50 Ml Syringe IV PUSH PRN PRN Hypoglycemia Protocol Diltiazem HCl 60 mg 04/21/24 14:05 Diltiazem Hcl 60 Mg Tablet FEED TUBE Q8HR LOKESH Doxazosin Mesylate 1 mg 04/20/24 09:00 04/21/24 09:49 Doxazosin Mesylate 1 Mg Tablet FEED TUBE 1 mg DAILY LOKESH Administration Epoetin Bacilio-epbx 20,000 units 04/22/24 07:00 Epoetin Bacilio-Epbx 20,000 Units/Ml Vial IV PUSH 04/22/24 07:01 ONCE ONE Folic Acid 1 mg 04/20/24 09:00 04/21/24 09:49 Folic Acid 1 Mg Tablet FEED TUBE 1 mg DAILY LOKESH Administration Furosemide 80 mg 04/19/24 17:00 04/21/24 09:49 Furosemide 80 Mg Tablet FEED TUBE 80 mg BID LOKESH Administration Glucagon 1 mg 04/19/24 14:29 Glucagon For Inj 1 Mg Vial IM PRN PRN Hypoglycemia Protocol Glucose 15 gm 04/19/24 14:29 Glucose Oral Gel 15 Gm Of Glucse In 37.5 Gm Tube PO PRN PRN Hypoglycemia Protocol Hydralazine HCl 10 mg 04/19/24 14:20 Hydralazine Hcl 20 Mg/Ml Vial IV PUSH Q8H PRN Blood Pressure - High Meropenem 500 mg in 100 mls @ 200 mls/hr 04/19/24 16:00 04/20/24 17:13 IVPB 200 mls/hr Q24H LOKESH Administration Azithromycin 500 mg in 250 mls @ 250 mls/hr 04/19/24 12:00 04/21/24 13:05 Zithromax IVPB 250 mls/hr Q24H LOKESH Administration Dextrose 1,000 mls @ 100 mls/hr 04/19/24 14:29 Dextrose 5% 1,000 Ml IVPB PRN PRN Hypoglycemia Protocol Insulin Aspart 2 - 5 units 04/20/24 12:00 04/21/24 13:10 Insulin Aspart (*Bkc) 100 Units/Ml SUB-Q Not Given Q6HR LOKESH Protocol Lansoprazole 30 mg 04/19/24 21:00 04/21/24 09:49 Lansoprazole Odt 30 Mg Tab.Rap.Dr FEED TUBE 30 mg Q12HR LOKESH Administration Levetiracetam 500 mg 04/19/24 21:00 04/21/24 09:49 Levetiracetam Oral Caitlyn 500 Mg/5 Ml Udc FEED TUBE 500 mg Q12HR LOKESH Administration Ondansetron HCl 4 mg 04/19/24 08:40 Ondansetron Inj 4 Mg/2 Ml Vial IV PUSH Q6H PRN Nausea And Vomiting Pantoprazole Sodium 40 mg 04/19/24 09:25 04/21/24 09:49 Pantoprazole Sodium Iv 40 Mg Vial IV PUSH 40 mg QAM LOKESH Administration Polyethylene Glycol 17 gm 04/19/24 14:20 Polyethylene Glycol 3350 17 Gm Powd.Pack PO QAM PRN Constipation Ropinirole HCl 0.5 mg 04/20/24 09:00 04/20/24 08:18 Ropinirole Hcl 0.5 Mg Tablet FEED TUBE 0.5 mg [email or web address] LOKESH Administration Vancomycin HCl 1 each 04/19/24 17:35 Vancomycin For Hemodialysis IVPB PRN PRN Vancomycin Protocol Radiology Results: ITS Impressions Head CT 04/18/24 14:30 IMPRESSION: Cerebral atherosclerosis and chronic small vessel ischemic changes of the cerebral white matter 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4 Eos # (Auto) 0.1 Baso # (Auto) 0.0 Abs Immat Gran (auto) 0.11 H Absolute Neuts (auto) 11.0 H Absolute Nucleated RBC 0.000 Nucleated RBC % 0.0 Sodium 139 Potassium 3.4 Chloride 100 Carbon Dioxide 32 H Anion Gap 7 BUN 72 H D Creatinine 4.00 H Estim Creat Clear Calc 10 Estimated GFR 18 L Glucose 198 H POC Capillary Glucose 214 H 189 H Calcium 9.0 Magnesium 2.3 Total Bilirubin 0.5 AST 63 H ALT 52 H Alkaline Phosphatase 107 Total Protein 7.0 Albumin 3.1 L Blood Type Antibody Screen EMMY, IgG Interpret EMMY, Poly Interpret Enhanced Crossmatch 04/21/24 04/21/24 04/21/24 05:54 07:04 07:07 WBC RBC Hgb 6.4 L* Hct 20.4 L* MCV MCH MCHC RDW Plt Count MPV Immature Gran % (Auto) Neut % (Auto) Lymph % (Auto) [place] % (Auto) Eos % (Auto) Baso % (Auto) Lymph # (Auto) [place] # (Auto) Eos # (Auto) Baso # (Auto) Abs Immat Gran (auto) Absolute Neuts (auto) Absolute Nucleated RBC Nucleated RBC % Sodium Potassium Chloride Carbon Dioxide Anion Gap BUN Creatinine Estim Creat Clear Calc Estimated GFR Glucose POC Capillary Glucose 218 H Calcium Magnesium Total Bilirubin AST ALT Alkaline Phosphatase Total Protein Albumin Blood Type O Positive Antibody Screen Positive EMMY, IgG Interpret Positive EMMY, Poly Interpret Not Performed Enhanced Crossmatch See Detail 04/21/24 12:10 WBC RBC Hgb Hct MCV MCH MCHC RDW Plt Count MPV Immature Gran % (Auto) Neut % (Auto) Lymph % (Auto) [place] % (Auto) Eos % (Auto) Baso % (Auto) Lymph # (Auto) [place] # (Auto) Eos # (Auto) Baso # (Auto) Abs Immat Gran (auto) Absolute Neuts (auto) Absolute Nucleated RBC Nucleated RBC % Sodium Potassium Chloride Carbon Dioxide Anion Gap BUN Creatinine Estim Creat Clear Calc Estimated GFR Glucose POC Capillary Glucose 177 H Calcium Magnesium Total Bilirubin AST ALT Alkaline Phosphatase Total Protein Albumin Blood Type Antibody Screen EMMY, IgG Interpret EMMY, Poly Interpret Enhanced Crossmatch Quality VTE Prophylaxis VTE prophylaxis: mechanical ordered and pharmacologic ordered Hospitalist MIPS Advance Care Plan I have confirmed that the patient's Advanced Care Plan is present, code status is documented, or surrogate decision maker is listed in patient medical record.: Yes Medication Reconciliation I have utilized all available resources to obtain, update and review the patients current medications (includes all prescriptions, OTC, herbals, cannabis, and nutritional supplements).: Yes
[2024-04-21] MEDS: MEROPENEM 500 MG/NS 100 ML 500 MG/100 ML BAG 200 MG IVPB (17:27)
[2024-04-21 18:23] LABS: Glucose Point of Care 152 mg/dl (65-105)
--- NOTE | 2024-04-21 18:30 | PC.NURSE ---
Wound care, bed change and repositioning done on pt. L elbow skin tear noted, Sacral skin tear noted, mepilex applied.
[2024-04-21] MEDS: ATORVASTATIN 20 MG TABLET FEED TUBE (20:11)
[2024-04-22] VITALS (33 sets, daily range): BP systolic 84–187; BP diastolic 46–87; PULSE 60–150; RESP 18–28; TEMP 36–37.4; O2SAT 92–100
[2024-04-22] MEDS: SODIUM CHLORIDE 0.9% IV 250 ML 30 ML IV CONT (04:17)
[2024-04-22] MEDS: dilTIAZem HCL 60 MG TABLET FEED TUBE (05:53)
[2024-04-22 07:01] LABS: Glucose Point of Care 191 mg/dl (65-105)
[2024-04-22 07:01] LABS: Glucose Point of Care 215 mg/dl (65-105)
[2024-04-22 07:26] LABS: Basophils Percent Auto 0.2 % (0.2-1.2); Eosinophils Absolute Auto 0.1 K/mm3 (0-0.3); Eosinophils Percent Auto 0.8 % (0-4.4); Hematocrit 26.3 % (42.0-52.0); Hemoglobin 8.3 g/dL (14.0-18.0); Immature Granulocyte Absolute 0.13 K/mm3 (0.00-0.031); Immature Granulocyte Percent A 0.9 % (0-0.5); Immature Platelet Fraction Pct 2.8 % (0.9-11.2); Lymphocytes Absolute Auto 0.86 K/mm3 (0.9-3.2); Lymphocytes Percent Auto 5.9 % (18.3-44.2); Mean Corpuscular HGB Conc 31.6 g/dl (32-36); Mean Corpuscular Hemoglobin 30.1 pg (26-34); Mean Corpuscular Volume 95.3 fl (80-100); Mean Platelet Volume 11.2 fl (7.4-10.4); Monocytes Absolute Auto 0.5 K/mm3 (0.1-0.6); Monocytes Percent Auto 3.6 % (2.6-8.5); Neutrophils Absolute Auto 12.8 K/mm3 (1.3-6.7); Neutrophils Percent Auto 88.6 % (45.5-73.1); Platelet Count Result 260 k/mm3 (150-375); Red Blood Count 2.76 M/mm3 (4.6-6.20); Red Cell Distribution Width 16.5 % (11.5-14.5); White Blood Count 14.5 K/mm3 (4.5-10.0)
[2024-04-22 07:46] LABS: Anisocytosis 1+; Burr Cells 1+; Hypochromasia 1+; Platelet Estimate Adequate (Adequate); Schistocytes None Seen; Tear Drop Cells 1+
[2024-04-22 07:58] LABS: Alanine Aminotransferase 83 U/L (6-50); Albumin Level 3.3 g/dL (3.5-5.1); Alkaline Phosphatase 135 U/L (38-126); Anion Gap 7 mmol/L (4-12); Aspartate Amino Transferase 119 U/L (17-59); Blood Urea Nitrogen 101 mg/dL (9-20); Calcium 8.9 mg/dL (8.4-10.2); Carbon Dioxide 31 mmol/L (22-30); Chloride 100 mmol/L (98-107); Estimated CRCL calculation 9 ml/min; Estimated Glomerular Filt Rate 14; Glucose 193 mg/dL (65-110); Magnesium 2.5 mg/dL (1.6-2.3); Potassium 4.6 mmol/L (3.4-5.0); Sodium 138 mmol/L (137-145)
[2024-04-22 08:42] LABS: Vancomycin Random 17.8 ug/mL (10-20)
--- NOTE | 2024-04-22 09:13 | PM.PNNEP ---
Progress Note: A&P Assessment and Plan (1) Aspiration pneumonia: Qualifiers: Aspiration pneumonia type: unspecified Laterality: bilateral Lung location: lower lobe of lung Qualified Code(s): J69.0 - Pneumonitis due to inhalation of food and vomit Code(s): J69.0 - Pneumonitis due to inhalation of food and vomit Status: Acute Assessment and Plan: The patient has a G-tube. He does not swallow. The working diagnosis is aspiration pneumonia Breathing okay. (2) End stage renal disease: Code(s): N18.6 - End stage renal disease Status: Chronic Assessment and Plan: The patient gets dialysis 3 times a week on Tuesdays and Saturdays. He had dialysis on Friday and will get another treatment tomorrow. Patient looks comfortable right now. Electrolytes look okay Volume status looks good His BUN is climbing. He is on Nepro at 55 an hour. This translates to about 2700calories per day. Perhaps this is too much. Can we dial it back to 35 or 40? nutrition consult? I will try to get hold of Dr Schuster. (3) Hypertension: Code(s): I10 - Essential (primary) hypertension Status: Chronic Assessment and Plan: Blood pressure is high today. Ranging from 110-150 (4) Anemia: Code(s): D64.9 - Anemia, unspecified Status: Chronic Assessment and Plan: Hemoglobin dropped yesterday. Repeat was still low. He received transfusion He received extra Epogen Will check stool guaiac and iron studies (5) History of atrial fibrillation: Code(s): Z86.79 - Personal history of other diseases of the circulatory system Status: Acute Assessment and Plan: Patient has a history of AFib. Currently he is in sinus rhythm. (6) Dementia: Code(s): F03.90 - Unspecified dementia, unspecified severity, without behavioral disturbance, psychotic disturbance, mood disturbance, and anxiety Status: Chronic Assessment and Plan: The patient looks like he is at baseline Subjective Date/time seen: 04/22/24 09:13 Interval history: Patient looks about the same. Blood pressure is doing okay. I think we can cut back on the UF to 1-2 L. He was seen on dialysis. My visit was at 9:00 a.m. Exam Narrative: WDWN non communicative in NAD skin no rash or subQ nodules head ncat lungs clear to auscultation cor reg no rub or gallop abd BS+ nontender and soft ext no edema or cyanosis. Objective Data Vital Signs Vital Signs: Vital Signs - 24 hr 04/21/24 09:41 04/21/24 09:50 04/21/24 12:00 Temperature 99.4 F Pulse Rate 94 135 H Respiratory Rate 25 H 35 H Blood Pressure 139/57 L Pulse Oximetry 100 04/21/24 12:17 04/21/24 16:00 04/21/24 16:36 Temperature 99.3 F 99.4 F Pulse Rate 108 H 102 H 111 H Respiratory Rate 26 H 26 H Blood Pressure 112/72 127/41 L Pulse Oximetry 100 98 04/21/24 20:00 04/21/24 20:41 04/22/24 00:00 Temperature 98.5 F Pulse Rate 111 H 111 H 117 H Respiratory Rate 24 H Blood Pressure 150/56 H Pulse Oximetry 91 04/22/24 00:00 04/22/24 04:00 04/22/24 04:24 Temperature 98.8 F 98.8 F Pulse Rate 117 H 99 97 Respiratory Rate 22 H 20 Blood Pressure 169/54 H 132/46 L Pulse Oximetry 100 100 04/22/24 04:40 04/22/24 05:40 04/22/24 06:43 Temperature 98.8 F 98.6 F 98.7 F Pulse Rate 114 H 98 109 H Respiratory Rate 20 20 20 Blood Pressure 121/50 L 132/57 L 133/71 Pulse Oximetry 100 100 100 Intake/Output Intake/Output: Intake & Output 04/19/24 04/20/24 04/21/24 04/22/24 23:59 23:59 23:59 23:59 Intake Total 684 631 2131 350 Output Total 1000 Balance -216 312 9138 350 Meds/Results Medications: Active Medications Generic Name Dose Route Start Last Admin Trade Name Freq PRN Reason Stop Dose Admin Acetaminophen 650 mg 04/19/24 08:46 Acetaminophen 650 Mg Suppository RECTAL Q6H PRN Mild Pain (1-3) or Fever Allopurinol 100 mg/ 400 mg 04/19/24 21:00 04/21/24 20:11 Allopurinol 300 mg PO 400 mg HS LOKESH Administration Atorvastatin Calcium 20 mg 04/19/24 21:00 04/21/24 20:11 Atorvastatin 20 Mg Tablet FEED TUBE 20 mg HS LOKESH Administration Dextrose 12.5 gm 04/19/24 14:29 Dextrose 50% 25 Gm/50 Ml Syringe IV PUSH PRN PRN Hypoglycemia Protocol Diltiazem HCl 60 mg 04/21/24 14:05 04/22/24 05:53 Diltiazem Hcl 60 Mg Tablet FEED TUBE 60 mg Q8HR LOKESH Administration Doxazosin Mesylate 1 mg 04/20/24 09:00 04/21/24 09:49 Doxazosin Mesylate 1 Mg Tablet FEED TUBE 1 mg DAILY LOKESH Administration Folic Acid 1 mg 04/20/24 09:00 04/21/24 09:49 Folic Acid 1 Mg Tablet FEED TUBE 1 mg DAILY LOKESH Administration Furosemide 80 mg 04/19/24 17:00 04/21/24 17:27 Furosemide 80 Mg Tablet FEED TUBE 80 mg BID LOKESH Administration Glucagon 1 mg 04/19/24 14:29 Glucagon For Inj 1 Mg Vial IM PRN PRN Hypoglycemia Protocol Glucose 15 gm 04/19/24 14:29 Glucose Oral Gel 15 Gm Of Glucse In 37.5 Gm Tube PO PRN PRN Hypoglycemia Protocol Hydralazine HCl 10 mg 04/19/24 14:20 Hydralazine Hcl 20 Mg/Ml Vial IV PUSH Q8H PRN Blood Pressure - High Meropenem 500 mg in 100 mls @ 200 mls/hr 04/19/24 16:00 04/21/24 17:57 IVPB Infused Q24H LOKESH Infusion Azithromycin 500 mg in 250 mls @ 250 mls/hr 04/19/24 12:00 04/21/24 14:05 Zithromax IVPB Infused Q24H LOKESH Infusion Dextrose 1,000 mls @ 100 mls/hr 04/19/24 14:29 Dextrose 5% 1,000 Ml IVPB PRN PRN Hypoglycemia Protocol Insulin Aspart 2 - 5 units 04/20/24 12:00 04/22/24 04:16 Insulin Aspart (*Bkc) 100 Units/Ml SUB-Q Not Given Q6HR LOKESH Protocol Lansoprazole 30 mg 04/19/24 21:00 04/21/24 20:11 Lansoprazole Odt 30 Mg Tab.Rap.Dr FEED TUBE 30 mg Q12HR LOKESH Administration Levetiracetam 500 mg 04/19/24 21:00 04/21/24 20:11 Levetiracetam Oral Caitlyn 500 Mg/5 Ml Udc FEED TUBE 500 mg Q12HR LOKESH Administration Ondansetron HCl 4 mg 04/19/24 08:40 Ondansetron Inj 4 Mg/2 Ml Vial IV PUSH Q6H PRN Nausea And Vomiting Pantoprazole Sodium 40 mg 04/19/24 09:25 04/21/24 09:49 Pantoprazole Sodium Iv 40 Mg Vial IV PUSH 40 mg QAM LOKESH Administration Polyethylene Glycol 17 gm 04/19/24 14:20 Polyethylene Glycol 3350 17 Gm Powd.Pack PO QAM PRN Constipation Ropinirole HCl 0.5 mg 04/20/24 09:00 04/20/24 08:18 Ropinirole Hcl 0.5 Mg Tablet FEED TUBE 0.5 mg [id number] LOKESH Administration Vancomycin HCl 1 each 04/19/24 17:35 Vancomycin For Hemodialysis IVPB PRN PRN Vancomycin Protocol Radiology Results: ITS Impressions Head CT 04/18/24 14:30 IMPRESSION: Cerebral atherosclerosis and chronic small vessel ischemic changes of the cerebral white matter 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 Cerebral and cerebellar atrophy No acute intracranial finding Chest X-Ray 04/18/24 15:57 IMPRESSION: Patchy bilateral lower lobe infiltrates, left greater than right, suggesting bilateral pneumonia versus aspiration pneumonitis Labs Labs: Laboratory Results - last 24 hr 04/21/24 04/21/24 04/21/24 07:07 12:10 18:20 WBC RBC Hgb Hct MCV MCH MCHC RDW Plt Count MPV Immature Gran % (Auto) Neut % (Auto) Lymph % (Auto) [place] % (Auto) Eos % (Auto) Baso % (Auto) Lymph # (Auto) [place] # (Auto) Eos # (Auto) Baso # (Auto) Abs Immat Gran (auto) Absolute Neuts (auto) Absolute Nucleated RBC Nucleated RBC % Platelet Estimate % Immature Plt Fraction Hypochromasia Anisocytosis Tear Drop Cells [place] Cells Schistocytes Sodium Potassium Chloride Carbon Dioxide Anion Gap BUN Creatinine Estim Creat Clear Calc Estimated GFR Glucose POC Capillary Glucose 177 H 152 H Calcium Magnesium Total Bilirubin AST ALT Alkaline Phosphatase Total Protein Albumin Random Vancomycin Blood Type O Positive Antibody Screen Positive Antibody Identification Anti-M Antigen Identification TNP EMMY, IgG Interpret Positive EMMY, Complement Interp Negative Enhanced Crossmatch See Detail 04/22/24 04/22/2404/22/24 00:38 06:15 06:47 WBC 14.5 H RBC 2.76 L Hgb 8.3 L Hct 26.3 L MCV 95.3 MCH 30.1 MCHC 31.6 L RDW 16.5 H Plt Count 260 MPV 11.2 H Immature Gran % (Auto) 0.9 H Neut % (Auto) 88.6 H Lymph % (Auto) 5.9 L [place] % (Auto) 3.6 Eos % (Auto) 0.8 Baso % (Auto) 0.2 Lymph # (Auto) 0.86 L [place] # (Auto) 0.5 Eos # (Auto) 0.1 Baso # (Auto) 0.0 Abs Immat Gran (auto) 0.13 H Absolute Neuts (auto) 12.8 H Absolute Nucleated RBC 0.000 Nucleated RBC % 0.0 Platelet Estimate Adequate % Immature Plt Fraction 2.8 Hypochromasia 1+ Anisocytosis 1+ Tear Drop Cells 1+ [place] Cells 1+ Schistocytes None seen Sodium 138 Potassium 4.6 Chloride 100 Carbon Dioxide 31 H Anion Gap 7 BUN 101 H D Creatinine 4.80 H Estim Creat Clear Calc 9 Estimated GFR 14 L Glucose 193 H POC Capillary Glucose 215 H 191 H Calcium 8.9 Magnesium 2.5 H Total Bilirubin 1.0 AST 119 H ALT 83 H Alkaline Phosphatase 135 H Total Protein 7.0 Albumin 3.3 L Random Vancomycin 17.8 Blood Type Antibody Screen Antibody Identification Antigen Identification EMMY, IgG Interpret EMMY, Complement Interp Enhanced Crossmatch
[2024-04-22 09:51] LABS: Iron 16 ug/dL (49-181)
[2024-04-22 10:00] LABS: Percent Iron Saturation 14 % (20-50); TOTAL IRON BINDING CAPACITY 112 ug/dL (265-497)
[2024-04-22] MEDS: FOLIC ACID 1 MG TABLET FEED TUBE (11:20)
[2024-04-22] MEDS: LANSOPRAZOLE ODT 30 MG TAB.RAP.DR FEED TUBE ×2 (11:20→20:33)
[2024-04-22] MEDS: DOXAZOSIN MESYLATE 1 MG TABLET FEED TUBE (11:20)
[2024-04-22] MEDS: FUROSEMIDE 80 MG TABLET FEED TUBE ×2 (11:20→16:41)
[2024-04-22] MEDS: levETIRAcetam ORAL SOL 500 MG/5 ML UDC FEED TUBE ×2 (11:21→20:33)
[2024-04-22] MEDS: EPOETIN ALFA-EPBX 20,000 UNITS/ML VIAL 20000 UNITS IV PUSH (11:44)
[2024-04-22] MEDS: METOPROLOL TARTRATE INJ 5 MG/5 ML VIAL 10 MG IV PUSH (11:54)
--- NOTE | 2024-04-22 12:38 | P.PNIM_ITS ---
Progress Note: A&P Assessment and Plan (1) Sepsis: Code(s): A41.9 - Sepsis, unspecified organism Status: Acute Assessment and Plan: Sepsis without septic shock likely secondary to pneumonia vs/+ possible wound infection. * Tachycardia, leukocytosis, tachypnea, pneumonia on CXR, UA with possible UTI, possible wounds infections. * Initial blood cultures growing Staph Hominis, repeat blood culture NGTD. * Currently on Azithromycin, meropenem and Vancomycin. * MRSA Positive. * Urine culture negative. * Chest x-ray with infiltrates and possible pneumonitis aspiration. * Continue current IV abx. (2) Aspiration pneumonia: Qualifiers: Aspiration pneumonia type: unspecified Laterality: bilateral Lung location: lower lobe of lung Qualified Code(s): J69.0 - Pneumonitis due to i nhalation of food and vomit Code(s): J69.0 - Pneumonitis due to inhalation of food and vomit Status: Acute Assessment and Plan: Patient with chronic multi lobular lower lobe pneumonitis likely secondary to aspiration from G-tube CXR: Patchy bilateral lower lobe infiltrates, left greater than right, suggesting bilateral pneumonia versus aspiration pneumonitis * Mgt as above. * Currently on meropenem IV, azithromycin and Vancomycin. * MRSA positive * history of dysphagia and patient with G-tube * Tube feedings resumed at slower rate. * TF rate decreased with worsening renal function. * Continue suctioning as needed. * Continue to follow blood cultures. (3) End-stage renal disease on hemodialysis: Code(s): N18.6 - End stage renal disease; Z99.2 - Dependence on renal dialysis Status: Acute Assessment and Plan: * nephrology following and managing hemo dialysis * TF rate decreased with worsening renal function per scouts recommendations. * Continue sevelamer carbonate * Avoid nephrotoxic drugs. * Monitor electrolytes and correct as needed. * Meds dosing per renal function. (4) Atrial fibrillation with RVR: Code(s): I48.91 - Unspecified atrial fibrillation Status: Acute Assessment and Plan: Hx of AFib and was in AFib RVR on admission. * Still with episodes of tachycardia > 110. * Diltiazem dose slightly increased. * Given a dose of IV metoprolol. * Continue apixaban * Continue cardiac monitoring. * Continue to adjust meds as needed. (5) Hypertension: Code(s): I10 - Essential (primary) hypertension Status: Chronic Assessment and Plan: * BP currently better controlled. * Continue to adjust meds as needed. (6) Dementia: Code(s): F03.90 - Unspecified dementia, unspecified severity, without behavioral disturbance, psychotic disturbance, mood disturbance, and anxiety Status: Chronic Assessment and Plan: Home meds resumed. (7) Dysphagia: Code(s): R13.10 - Dysphagia, unspecified Status: Acute Assessment and Plan: * Continue to TF and adjust rate as tolerated. * Seen by dietitian and we'll follow recommendations. * continue to monitor for aspiration and residuals. (8) UTI (urinary tract infection): Code(s): N39.0 - Urinary tract infection, site not specified Status: Acute Assessment and Plan: patient's urine was nitrate and leukocytosis positive history of indwelling catheter for retention however was straight cathed in the ER * Urine culture negative. * No treatment required. (9) Anemia: Code(s): D64.9 - Anemia, unspecified Status: Chronic Assessment and Plan: - Possibly related to ESRD vs/+ acute blood loss from wound vs other bleeding. * hemoglobin improved post 1 unit PRBC's transfusion; 6.4>>8.3. * Continue to monitor Hgb closely and transfuse for Hgb <7. * Epogen per nephrology. * We'll consider GI consult. * Monitor for obvious bleeding signs with Eliquis use. (10) Sacral wound: Code(s): S31.000A - Unspecified open wound of lower back and pelvis without penetration into retroperitoneum, initial encounter Status: Acute Assessment and Plan: Patient with multiple pressure open areas on buttocks and unstageable sacral wound. * Wound nurse consulted * Q 2 Turns * Mepilex on sacrum. * continue IV vancomycin for now. Plan Code status: Full code DVT prophylaxis: Eliquis Stress ulcer prophylaxis: Protonix 40 daily PT/OT notes: patient bedridden Disposition: patient was admitted to the medical unit for further evaluation and treatment sepsis secondary to aspiration pneumonia. Continue hemo-dialysis per nephrology scheduling. Continue IV meropenem and azithromycin for aspiration PNA. Nephrology following for CKD dependent on HD. Time Spent With Patient Time with patient: 25 - 35 minutes Subjective Date/time seen: 04/22/24 10:38 Patient non-verbal on bedrest. Interval history: Patient calm on bedrest and looks to be in no acute distress. Review of Systems Review of Systems: ROS unobtainable: Yes unobtainable due to medical condition and unobtainable due to mental status Exam Narrative: * GENERAL: Alert but non-verbal. No acute distress. * EYES: EOMI. No scleral icterus. PERRLA. * HEENT: Dry mucous membranes. * LUNGS: Coarse and congested. No accessory muscle use. * CARDIOVASCULAR: irregularly irregular . No murmurs. * ABDOMEN: Soft, non tender, and non-distended. G-tube LUQ * EXTREMITIES: No edema. Non-tender, Bilateral lower extremity contracted * SKIN: No rashes or lesions. Skin warm and dry. * NEUROLOGIC: Non-verbal. Jacek LE contracture. * PSYCHIATRIC:Unable to assess due to non-verbal status. Objective Data Vital Signs Vital Signs: Vital Signs - 24 hr 04/21/24 16:00 04/21/24 16:36 04/21/24 20:00 Temperature 99.4 F Pulse Rate 102 H 111 H 111 H Respiratory Rate 26 H Blood Pressure 127/41 L Pulse Oximetry 98 Oxygen Flow Rate 04/21/24 20:41 04/22/24 00:00 04/22/24 00:00 Temperature 98.5 F 98.8 F Pulse Rate 111 H 117 H 117 H Respiratory Rate 24 H 22 H Blood Pressure 150/56 H 169/54 H Pulse Oximetry 91 100 Oxygen Flow Rate 04/22/24 04:00 04/22/24 04:24 04/22/24 04:40 Temperature 98.8 F 98.8 F Pulse Rate 99 97 114 H Respiratory Rate 20 20 Blood Pressure 132/46 L 121/50 L Pulse Oximetry 100 100 Oxygen Flow Rate 04/22/24 05:40 04/22/24 06:43 04/22/24 08:10 Temperature 98.6 F 98.7 F 99.3 F Pulse Rate 98 109 H 96 Respiratory Rate 20 20 26 H Blood Pressure 132/57 L 133/71 131/54 L Pulse Oximetry 100 100 97 Oxygen Flow Rate 04/22/24 08:24 04/22/24 08:24 04/22/24 08:30 Temperature Pulse Rate 89 86 Respiratory Rate Blood Pressure 141/50 H 116/57 L Pulse Oximetry Oxygen Flow Rate 3 04/22/24 08:45 04/22/24 09:00 04/22/24 09:15 Temperature Pulse Rate 74 74 88 Respiratory Rate Blood Pressure 173/49 H 132/55 L 84/53 L Pulse Oximetry Oxygen Flow Rate 04/22/24 09:30 04/22/24 09:45 04/22/24 10:00 Temperature Pulse Rate 73 72 82 Respiratory Rate Blood Pressure 143/53 H 168/49 H 187/52 H Pulse Oximetry Oxygen Flow Rate 04/22/24 10:15 04/22/24 10:30 04/22/24 10:45 Temperature Pulse Rate 90 101 H 80 Respiratory Rate Blood Pressure 147/63 H 159/58 H 111/51 L Pulse Oximetry Oxygen Flow Rate 04/22/24 11:00 04/22/24 11:15 04/22/24 11:30 Temperature Pulse Rate 60 82 79 Respiratory Rate Blood Pressure 86/63 L 126/58 L 121/58 L Pulse Oximetry Oxygen Flow Rate 04/22/24 11:54 04/22/24 12:05 Temperature 97.3 F L Pulse Rate 150 H 73 Respiratory Rate 20 Blood Pressure 152/59 H Pulse Oximetry 100 Oxygen Flow Rate Intake/Output Intake/Output: Intake & Output 04/19/24 04/20/24 04/21/24 04/22/24 23:59 23:59 23:59 23:59 Intake Total 055 679 0270 350 Output Total 1000 Balance -313 865 8868 350 Meds/Results Medications: Active Medications Generic Name Dose Route Start Last Admin Trade Name Freq PRN Reason Stop Dose Admin Acetaminophen 650 mg 04/19/24 08:46 Acetaminophen 650 Mg Suppository RECTAL Q6H PRN Mild Pain (1-3) or Fever Allopurinol 100 mg/ 400 mg 04/19/24 21:00 04/21/24 20:11 Allopurinol 300 mg PO 400 mg HS LOKESH Administration Atorvastatin Calcium 20 mg 04/19/24 21:00 04/21/24 20:11 Atorvastatin 20 Mg Tablet FEED TUBE 20 mg HS LOKESH Administration Dextrose 12.5 gm 04/19/24 14:29 Dextrose 50% 25 Gm/50 Ml Syringe IV PUSH PRN PRN Hypoglycemia Protocol Diltiazem HCl 60 mg 04/21/24 14:05 04/22/24 05:53 Diltiazem Hcl 60 Mg Tablet FEED TUBE 60 mg Q8HR LOKESH Administration Doxazosin Mesylate 1 mg 04/20/24 09:00 04/22/24 11:20 Doxazosin Mesylate 1 Mg Tablet FEED TUBE 1 mg DAILY LOKESH Administration Folic Acid 1 mg 04/20/24 09:00 04/22/24 11:20 Folic Acid 1 Mg Tablet FEED TUBE 1 mg DAILY LOKESH Administration Furosemide 80 mg 04/19/24 17:00 04/22/24 11:20 Furosemide 80 Mg Tablet FEED TUBE 80 mg BID LOKESH Administration Glucagon 1 mg 04/19/24 14:29 Glucagon For Inj 1 Mg Vial IM PRN PRN Hypoglycemia Protocol Glucose 15 gm 04/19/24 14:29 Glucose Oral Gel 15 Gm Of Glucse In 37.5 Gm Tube PO PRN PRN Hypoglycemia Protocol Hydralazine HCl 10 mg 04/19/24 14:20 Hydralazine Hcl 20 Mg/Ml Vial IV PUSH Q8H PRN Blood Pressure - High Meropenem 500 mg in 100 mls @ 200 mls/hr 04/19/24 16:00 04/21/24 17:57 IVPB Infused Q24H LOKESH Infusion Azithromycin 500 mg in 250 mls @ 250 mls/hr 04/19/24 12:00 04/21/24 14:05 Zithromax IVPB Infused Q24H LOKESH Infusion Dextrose 1,000 mls @ 100 mls/hr 04/19/24 14:29 Dextrose 5% 1,000 Ml IVPB PRN PRN Hypoglycemia Protocol Vancomycin HCl 500 mg in 100 mls @ 100 mls/hr 04/22/24 15:00 Vancomycin 500 Mg/Ns 100 Ml IVPB 04/22/24 15:59 ONCE ONE Insulin Aspart 2 - 5 units 04/20/24 12:00 04/22/24 11:36 Insulin Aspart (*Bkc) 100 Units/Ml SUB-Q Not Given Q6HR LOKESH Protocol Lansoprazole 30 mg 04/19/24 21:00 04/22/24 11:20 Lansoprazole Odt 30 Mg Tab.Rap.Dr FEED TUBE 30 mg Q12HR LOKESH Administration Levetiracetam 500 mg 04/19/24 21:00 04/22/24 11:21 Levetiracetam Oral Caitlyn 500 Mg/5 Ml Udc FEED TUBE 500 mg Q12HR LOKESH Administration Ondansetron HCl 4 mg 04/19/24 08:40 Ondansetron Inj 4 Mg/2 Ml Vial IV PUSH Q6H PRN Nausea And Vomiting Pantoprazole Sodium 40 mg 04/19/24 09:25 04/21/24 09:49 Pantoprazole Sodium Iv 40 Mg Vial IV PUSH 40 mg QAM LOKESH Administration Polyethylene Glycol 17 gm 04/19/24 14:20 Polyethylene Glycol 3350 17 Gm Powd.Pack PO QAM PRN Constipation Ropinirole HCl 0.5 mg 04/20/24 09:00 04/20/24 08:18 Ropinirole Hcl 0.5 Mg Tablet FEED TUBE 0.5 mg TuThSa@0900 LOKESH Administration Vancomycin HCl 1 each 04/19/24 17:35 Vancomycin For Hemodialysis IVPB PRN PRN Vancomycin Protocol Radiology Results: ITS Impressions Head CT 04/18/24 14:30 IMPRESSION: Cerebral atherosclerosis and chronic small vessel ischemic changes of the cerebral white matter 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 Cerebral and cerebellar atrophy No acute intracranial finding Chest X-Ray 04/18/24 15:57 IMPRESSION: Patchy bilateral lower lobe infiltrates, left greater than right, suggesting bilateral pneumonia versus aspiration pneumonitis Labs Labs: Laboratory Results - last 24 hr 04/21/24 04/21/24 04/22/24 07:07 18:20 00:38 WBC RBC Hgb Hct MCV MCH MCHC RDW Plt Count MPV Immature Gran % (Auto) Neut % (Auto) Lymph % (Auto) [place] % (Auto) Eos % (Auto) Baso % (Auto) Lymph # (Auto) [place] # (Auto) Eos # (Auto) Baso # (Auto) Abs Immat Gran (auto) Absolute Neuts (auto) Absolute Nucleated RBC Nucleated RBC % Platelet Estimate % Immature Plt Fraction Hypochromasia Anisocytosis Tear Drop Cells [place] Cells Schistocytes Sodium Potassium Chloride Carbon Dioxide Anion Gap BUN Creatinine Estim Creat Clear Calc Estimated GFR Glucose POC Capillary Glucose 152 H 215 H Calcium Magnesium Iron TIBC Total Bilirubin AST ALT Alkaline Phosphatase Total Protein Albumin Random Vancomycin Blood Type O Positive Antibody Screen Positive Antibody Identification Anti-M Antigen Identification TNP EMMY, IgG Interpret Positive EMMY, Complement Interp Negative Enhanced Crossmatch See Detail 04/22/24 04/22/24 06:15 06:47 WBC 14.5 H RBC 2.76 L Hgb 8.3 L Hct 26.3 L MCV 95.3 MCH 30.1 MCHC 31.6 L RDW 16.5 H Plt Count 260 MPV 11.2 H Immature Gran % (Auto) 0.9 H Neut % (Auto) 88.6 H Lymph % (Auto) 5.9 L [place] % (Auto) 3.6 Eos % (Auto) 0.8 Baso % (Auto) 0.2 Lymph # (Auto) 0.86 L [place] # (Auto) 0.5 Eos # (Auto) 0.1 Baso # (Auto) 0.0 Abs Immat Gran (auto) 0.13 H Absolute Neuts (auto) 12.8 H Absolute Nucleated RBC 0.000 Nucleated RBC % 0.0 Platelet Estimate Adequate % Immature Plt Fraction 2.8 Hypochromasia 1+ Anisocytosis 1+ Tear Drop Cells 1+ [place] Cells 1+ Schistocytes None seen Sodium 138 Potassium 4.6 Chloride 100 Carbon Dioxide 31 H Anion Gap 7 BUN 101 H D Creatinine 4.80 H Estim Creat Clear Calc 9 Estimated GFR 14 L Glucose 193 H POC Capillary Glucose 191 H Calcium 8.9 Magnesium 2.5 H Iron 16 L TIBC 112 L Total Bilirubin 1.0 AST 119 H ALT 83 H Alkaline Phosphatase 135 H Total Protein 7.0 Albumin 3.3 L Random Vancomycin 17.8 Blood Type Antibody Screen Antibody Identification Antigen Identification EMMY, IgG Interpret EMMY, Complement Interp Enhanced Crossmatch Quality VTE Prophylaxis VTE prophylaxis: mechanical ordered and pharmacologic ordered Hospitalist MIPS Advance Care Plan I have confirmed that the patient's Advanced Care Plan is present, code status is documented, or surrogate decision maker is listed in patient medical record.: Yes Medication Reconciliation I have utilized all available resources to obtain, update and review the patients current medications (includes all prescriptions, OTC, herbals, cannabis, and nutritional supplements).: Yes
[2024-04-22] MEDS: dilTIAZem HCL 30 MG TABLET 90 MG FEED TUBE ×2 (13:24→20:33)
[2024-04-22] MEDS: AZITHROMYCIN 500 MG/NS 250 ML 500 MG/250 ML BAG 250 MG IVPB (13:24)
[2024-04-22] MEDS: rOPINIRole HCL 0.5 MG TABLET FEED TUBE (13:24)
[2024-04-22] MEDS: PANTOPRAZOLE SODIUM IV 40 MG VIAL IV PUSH (13:25)
[2024-04-22 13:59] LABS: IFOB Positive Control Positive; Immunochemical Fecal Occult Bl Negative (N)
[2024-04-22 14:03] LABS: Ferritin > 2000.00 ng/mL (11.1-264)
[2024-04-22 14:14] LABS: Glucose Point of Care 177 mg/dl (65-105)
[2024-04-22] MEDS: VANCOMYCIN 500 MG/NS 100 ML 500 MG/100 ML BAG 100 MG IVPB (15:29)
[2024-04-22] MEDS: MEROPENEM 500 MG/NS 100 ML 500 MG/100 ML BAG 200 MG IVPB (16:38)
[2024-04-22] MEDS: ATORVASTATIN 20 MG TABLET FEED TUBE (20:33)
[2024-04-23] VITALS (15 sets, daily range): BP systolic 126–154; BP diastolic 46–71; PULSE 88–120; RESP 18–24; TEMP 36.6–37.1; O2SAT 91–100
[2024-04-23 01:38] LABS: Glucose Point of Care 197 mg/dl (65-105)
[2024-04-23] MEDS: dilTIAZem HCL 30 MG TABLET 90 MG FEED TUBE ×3 (05:16→19:56)
[2024-04-23 07:04] LABS: Basophils Percent Auto 0.3 % (0.2-1.2); Eosinophils Absolute Auto 0.1 K/mm3 (0-0.3); Eosinophils Percent Auto 0.8 % (0-4.4); Hematocrit 27.3 % (42.0-52.0); Hemoglobin 8.4 g/dL (14.0-18.0); Immature Granulocyte Absolute 0.17 K/mm3 (0.00-0.031); Immature Granulocyte Percent A 1.4 % (0-0.5); Lymphocytes Absolute Auto 0.93 K/mm3 (0.9-3.2); Lymphocytes Percent Auto 7.8 % (18.3-44.2); Mean Corpuscular HGB Conc 30.8 g/dl (32-36); Mean Corpuscular Hemoglobin 28.6 pg (26-34); Mean Corpuscular Volume 92.9 fl (80-100); Mean Platelet Volume 10.3 fl (7.4-10.4); Monocytes Absolute Auto 0.5 K/mm3 (0.1-0.6); Monocytes Percent Auto 4.3 % (2.6-8.5); Neutrophils Absolute Auto 10.3 K/mm3 (1.3-6.7); Neutrophils Percent Auto 85.4 % (45.5-73.1); Platelet Count Result 306 k/mm3 (150-375); Red Blood Count 2.94 M/mm3 (4.6-6.20); Red Cell Distribution Width 16.6 % (11.5-14.5)
[2024-04-23 07:16] LABS: Alanine Aminotransferase 114 U/L (6-50); Albumin Level 3.4 g/dL (3.5-5.1); Alkaline Phosphatase 128 U/L (38-126); Anion Gap 5 mmol/L (4-12); Aspartate Amino Transferase 130 U/L (17-59); Bilirubin,Total 0.8 mg/dL (0.2-1.3); Blood Urea Nitrogen 54 mg/dL (9-20); Calcium 9.1 mg/dL (8.4-10.2); Carbon Dioxide 34 mmol/L (22-30); Chloride 98 mmol/L (98-107); Estimated CRCL calculation 13 ml/min; Estimated Glomerular Filt Rate 25; Glucose 162 mg/dL (65-110); Magnesium 2.2 mg/dL (1.6-2.3); Potassium 4.2 mmol/L (3.4-5.0); Sodium 137 mmol/L (137-145)
[2024-04-23] MEDS: LANSOPRAZOLE ODT 30 MG TAB.RAP.DR FEED TUBE ×2 (08:12→19:57)
[2024-04-23] MEDS: DOXAZOSIN MESYLATE 1 MG TABLET FEED TUBE (08:12)
[2024-04-23] MEDS: PANTOPRAZOLE SODIUM IV 40 MG VIAL IV PUSH (08:12)
[2024-04-23] MEDS: levETIRAcetam ORAL SOL 500 MG/5 ML UDC FEED TUBE ×2 (08:12→19:55)
[2024-04-23] MEDS: FOLIC ACID 1 MG TABLET FEED TUBE (08:12)
[2024-04-23] MEDS: FUROSEMIDE 80 MG TABLET FEED TUBE ×2 (08:12→16:36)
--- NOTE | 2024-04-23 08:56 | PM.PNNEP ---
Progress Note: A&P Assessment and Plan (1) Aspiration pneumonia: Qualifiers: Aspiration pneumonia type: unspecified Laterality: bilateral Lung location: lower lobe of lung Qualified Code(s): J69.0 - Pneumonitis due to inhalation of food and vomit Code(s): J69.0 - Pneumonitis due to inhalation of food and vomit Status: Acute Assessment and Plan: The patient has a G-tube. He does not swallow. Patient has aspiration pneumonia. Today he has posterior pharyngeal secretions. Nursing will work on suctioning. Breathing okay. (2) End stage renal disease: Code(s): N18.6 - End stage renal disease Status: Chronic Assessment and Plan: The patient gets dialysis 3 times a week on Tuesdays and Saturdays. He had a dialysis yesterday. He gets treatment tomorrow. Patient looks comfortable right now. Electrolytes look okay Volume status looks good His BUN is climbing. I reached out to Dr. Schuster who adjusted the Nepro. (3) Hypertension: Code(s): I10 - Essential (primary) hypertension Status: Chronic Assessment and Plan: Blood pressure is high today. Ranging from 110-150 Getting Cardizem per tube as well as p.r.n. metoprolol and Cardizem. Should we try per tube metoprolol or low-dose digoxin? (4) Anemia: Code(s): D64.9 - Anemia, unspecified Status: Chronic Assessment and Plan: Hemoglobin dropped the other day. He received transfusion. He received extra Epogen Hemoglobin yesterday and today are about the same. Stool occult blood was negative. He is iron deficient. Since on antibiotics will give IV iron after antibiotics are done. (5) History of atrial fibrillation: Code(s): Z86.79 - Personal history of other diseases of the circulatory system Status: Acute Assessment and Plan: Patient has a history of AFib. Currently he is in sinus rhythm. Heart rate is high. (6) Dementia: Code(s): F03.90 - Unspecified dementia, unspecified severity, without behavioral disturbance, psychotic disturbance, mood disturbance, and anxiety Status: Chronic Assessment and Plan: The patient looks like he is at baseline Subjective Date/time seen: 04/23/24 08:56 Interval history: Patient is resting in bed. He has posterior pharyngeal secretions. I talked with Nursing. They have tried with a yankor suction and were unable to help. I asked if they could use a nasal trumpet and suctioning. She will talk with her supervisor lump room and respiratory therapy to see what they can come up with. Exam Narrative: WDWN non communicative in NAD skin no rash or subQ nodules head ncat lungs coarse upper airway noise cor reg no rub or gallop abd BS+ nontender and soft ext no edema or cyanosis. Objective Data Vital Signs Vital Signs: Vital Signs - 24 hr 04/22/24 09:00 04/22/24 09:15 04/22/24 09:30 Temperature Pulse Rate 74 88 73 Respiratory Rate Blood Pressure 132/55 L 84/53 L 143/53 H Pulse Oximetry Oxygen Delivery Oxygen Flow Rate 04/22/24 09:45 04/22/24 10:00 04/22/24 10:15 Temperature Pulse Rate 72 82 90 Respiratory Rate Blood Pressure 168/49 H 187/52 H 147/63 H Pulse Oximetry Oxygen Delivery Oxygen Flow Rate 04/22/24 10:30 04/22/24 10:45 04/22/24 11:00 Temperature Pulse Rate 101 H 80 60 Respiratory Rate Blood Pressure 159/58 H 111/51 L 86/63 L Pulse Oximetry Oxygen Delivery Oxygen Flow Rate 04/22/24 11:15 04/22/24 11:30 04/22/24 11:45 Temperature Pulse Rate 82 79 80 Respiratory Rate Blood Pressure 126/58 L 121/58 L 140/65 Pulse Oximetry Oxygen Delivery Oxygen Flow Rate 04/22/24 11:54 04/22/24 11:57 04/22/24 12:00 Temperature 98.8 F Pulse Rate 150 H 77 103 H Respiratory Rate 18 Blood Pressure 135/53 L 160/69 H Pulse Oximetry 100 Oxygen Delivery Oxygen Flow Rate 04/22/24 12:05 04/22/24 12:05 04/22/24 12:30 Temperature 97.3 F L Pulse Rate 73 105 H Respiratory Rate 20 Blood Pressure 152/59 H Pulse Oximetry 100 100 Oxygen Delivery Nasal Cannula Oxygen Flow Rate 3 04/22/24 16:04 04/22/24 18:35 04/22/24 20:00 Temperature 99.3 F Pulse Rate 112 H 79 123 H Respiratory Rate 28 H Blood Pressure 153/87 H Pulse Oximetry 100 Oxygen Delivery Oxygen Flow Rate 04/22/24 21:29 04/23/24 00:00 04/23/24 01:48 Temperature 97.7 F 98.3 F Pulse Rate 118 H 104 H 107 H Respiratory Rate 26 H 22 H Blood Pressure 139/53 L 135/71 Pulse Oximetry 92 91 Oxygen Delivery Oxygen Flow Rate 04/23/24 04:00 04/23/24 06:00 Temperature 97.8 F Pulse Rate 114 H 115 H Respiratory Rate 22 H Blood Pressure 154/52 H Pulse Oximetry 93 Oxygen Delivery Oxygen Flow Rate Intake/Output Intake/Output: Intake & Output 04/20/24 04/21/24 04/22/24 04/23/24 23:59 23:59 23:59 23:59 Intake Total 600 1056 2753 420 Output Total 1500 0 Balance 600 1056 1253 420 Meds/Results Medications: Active Medications Generic Name Dose Route Start Last Admin Trade Name Freq PRN Reason Stop Dose Admin Acetaminophen 650 mg 04/19/24 08:46 Acetaminophen 650 Mg Suppository RECTAL Q6H PRN Mild Pain (1-3) or Fever Allopurinol 100 mg/ 400 mg 04/19/24 21:00 04/22/24 20:33 Allopurinol 300 mg PO 400 mg HS LOKESH Administration Atorvastatin Calcium 20 mg 04/19/24 21:00 04/22/24 20:33 Atorvastatin 20 Mg Tablet FEED TUBE 20 mg HS LOKESH Administration Dextrose 12.5 gm 04/19/24 14:29 Dextrose 50% 25 Gm/50 Ml Syringe IV PUSH PRN PRN Hypoglycemia Protocol Diltiazem HCl 90 mg 04/22/24 14:00 04/23/24 05:16 Diltiazem Hcl 30 Mg Tablet FEED TUBE 90 mg Q8HR LOKESH Administration Doxazosin Mesylate 1 mg 04/20/24 09:00 04/23/24 08:12 Doxazosin Mesylate 1 Mg Tablet FEED TUBE 1 mg DAILY LOKESH Administration Folic Acid 1 mg 04/20/24 09:00 04/23/24 08:12 Folic Acid 1 Mg Tablet FEED TUBE 1 mg DAILY LOKESH Administration Furosemide 80 mg 04/19/24 17:00 04/23/24 08:12 Furosemide 80 Mg Tablet FEED TUBE 80 mg BID LOKESH Administration Glucagon 1 mg 04/19/24 14:29 Glucagon For Inj 1 Mg Vial IM PRN PRN Hypoglycemia Protocol Glucose 15 gm 04/19/24 14:29 Glucose Oral Gel 15 Gm Of Glucse In 37.5 Gm Tube PO PRN PRN Hypoglycemia Protocol Hydralazine HCl 10 mg 04/19/24 14:20 Hydralazine Hcl 20 Mg/Ml Vial IV PUSH Q8H PRN Blood Pressure - High Meropenem 500 mg in 100 mls @ 200 mls/hr 04/19/24 16:00 04/22/24 16:38 IVPB 200 mls/hr Q24H LOKESH Administration Azithromycin 500 mg in 250 mls @ 250 mls/hr 04/19/24 12:00 04/22/24 14:47 Zithromax IVPB Infused Q24H LOKESH Infusion Dextrose 1,000 mls @ 100 mls/hr 04/19/24 14:29 Dextrose 5% 1,000 Ml IVPB PRN PRN Hypoglycemia Protocol Insulin Aspart 2 - 5 units 04/20/24 12:00 04/23/24 07:19 Insulin Aspart (*Bkc) 100 Units/Ml SUB-Q Not Given Q6HR LOKESH Protocol Lansoprazole 30 mg 04/19/24 21:00 04/23/24 08:12 Lansoprazole Odt 30 Mg Tab.Rap.Dr FEED TUBE 30 mg Q12HR LOKESH Administration Levetiracetam 500 mg 04/19/24 21:00 04/23/24 08:12 Levetiracetam Oral Caitlyn 500 Mg/5 Ml Udc FEED TUBE 500 mg Q12HR LOKESH Administration Ondansetron HCl 4 mg 04/19/24 08:40 Ondansetron Inj 4 Mg/2 Ml Vial IV PUSH Q6H PRN Nausea And Vomiting Pantoprazole Sodium 40 mg 04/19/24 09:25 04/23/24 08:12 Pantoprazole Sodium Iv 40 Mg Vial IV PUSH 40 mg QAM LOKESH Administration Polyethylene Glycol 17 gm 04/19/24 14:20 Polyethylene Glycol 3350 17 Gm Powd.Pack PO QAM PRN Constipation Ropinirole HCl 0.5 mg 04/20/24 09:00 04/22/24 13:24 Ropinirole Hcl 0.5 Mg Tablet FEED TUBE 0.5 mg TuThSa@0900 LOKESH Administration Vancomycin HCl 1 each 04/19/24 17:35 Vancomycin For Hemodialysis IVPB PRN PRN Vancomycin Protocol Radiology Results: ITS Impressions Head CT 04/18/24 14:30 IMPRESSION: Cerebral atherosclerosis and chronic small vessel ischemic changes of the cerebral white matter 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 Cerebral and cerebellar atrophy No acute intracranial finding Chest X-Ray 04/18/24 15:57 IMPRESSION: Patchy bilateral lower lobe infiltrates, left greater than right, suggesting bilateral pneumonia versus aspiration pneumonitis Labs Labs: Laboratory Results - last 24 hr 04/18/24 04/22/24 04/22/24 19:37 06:47 13:02 WBC RBC Hgb Hct MCV MCH MCHC RDW Plt Count MPV Immature Gran % (Auto) Neut % (Auto) Lymph % (Auto) [place] % (Auto) Eos % (Auto) Baso % (Auto) Lymph # (Auto) [place] # (Auto) Eos # (Auto) Baso # (Auto) Abs Immat Gran (auto) Absolute Neuts (auto) Absolute Nucleated RBC Nucleated RBC % O2 Liters/Min Not Reportable Sodium Potassium Chloride Carbon Dioxide Anion Gap BUN Creatinine Estim Creat Clear Calc Estimated GFR Glucose POC Capillary Glucose Calcium Magnesium Iron 16 L TIBC 112 L % Saturation 14 L Ferritin > 2000.00 H Total Bilirubin AST ALT Alkaline Phosphatase Total Protein Albumin Stl Occult Blood (IFOB) Negative 04/22/24 04/23/24 04/23/24 14:07 00:51 06:52 WBC 12.0 H RBC 2.94 L Hgb 8.4 L Hct 27.3 L MCV 92.9 MCH 28.6 MCHC 30.8 L RDW 16.6 H Plt Count 306 MPV 10.3 Immature Gran % (Auto) 1.4 H Neut % (Auto) 85.4 H Lymph % (Auto) 7.8 L [place] % (Auto) 4.3 Eos % (Auto) 0.8 Baso % (Auto) 0.3 Lymph # (Auto) 0.93 [place] # (Auto) 0.5 Eos # (Auto) 0.1 Baso # (Auto) 0.0 Abs Immat Gran (auto) 0.17 H Absolute Neuts (auto) 10.3 H Absolute Nucleated RBC 0.000 Nucleated RBC % 0.0 O2 Liters/Min Sodium 137 Potassium 4.2 Chloride 98 Carbon Dioxide 34 H Anion Gap 5 BUN 54 H D Creatinine 3.00 H Estim Creat Clear Calc 13 Estimated GFR 25 L Glucose 162 H POC Capillary Glucose 177 H 197 H Calcium 9.1 Magnesium 2.2 Iron TIBC % Saturation Ferritin Total Bilirubin 0.8 AST 130 H ALT 114 H Alkaline Phosphatase 128 H Total Protein 8.0 Albumin 3.4 L Stl Occult Blood (IFOB)
[2024-04-23] MEDS: AZITHROMYCIN 500 MG/NS 250 ML 500 MG/250 ML BAG 250 MG IVPB (11:10)
[2024-04-23] MEDS: METOPROLOL TARTRATE 25 MG TABLET FEED TUBE ×2 (11:10→19:57)
[2024-04-23 12:12] LABS: Glucose Point of Care 186 mg/dl (65-105)
--- NOTE | 2024-04-23 12:24 | PCNFU ---
Nutrition Follow-Up Complete: Severe malnutrition related to chronic disease as evidenced by severe muscle wasting and fat loss. Meet estimated protein energy needs - Goal is being met with tube feeding, even after decrease in rate. Continue with same goal Goal: Pt current nutrition is Nepro @ 45 ml/h (rate was decreased by nephrology), 30 ml flushes q 4 h Nutrition recommendation: Anuj BID for wounds: 90 kcal, 2.5 g protein, arginine and glutamine for wounds Last recorded weight is 50.2 kg. Up from 46.9 kg at admission Bowel Motility: +1 BM 04/22/24 Labs Reviewed: Hgb 8.4, Hct 27.3, Alb 3.4, GFR 25, BUN 54, Cre 3.0, Glu 162 Meds Noted: Lasix, Keppra, Novolog, protonix, folic acid Skin: Multiple wounds per wound notes. At least 6 pressure injuries Additional Notes: Communication with provider Narinder re: severe malnutrition, Anuj for wounds. Rate change by nephrology who thought renal function may be worsened by high rate of tube feeding so decreased rate from 55 ml/h to 45 ml/h. Agree with changes. Nepro @ 45 ml/h provides 1782 kcal, 80 g protein, 720 ml free water. Flush 30 ml q 4 h. Meets needs at 100% EER, 1.6 g protein/kg. Adequate for wound healing. Anuj added for wounds. Monitoring tube feeding tolerance, weights, labs, output, plan of care Follow up Tuesdays and Fridays
--- NOTE | 2024-04-23 15:59 | P.PNIM_ITS ---
Progress Note: A&P Assessment and Plan (1) Sepsis: Code(s): A41.9 - Sepsis, unspecified organism Status: Acute Assessment and Plan: Sepsis without septic shock likely secondary to pneumonia vs less likely wound infection. * On admission pt with Tachycardia, leukocytosis, tachypnea, pneumonia on CXR, UA with possible UTI, possible wounds infections. * Initial blood cultures growing Staph Hominis, repeat blood culture NGTD. * Currently on Azithromycin, meropenem and Vancomycin; Continue for now and consider de-escalation tomorrow. * MRSA Positive. * Urine culture negative. * Chest x-ray with infiltrates and possible pneumonitis aspiration. * Repeat CXR pending. * Continue current IV abx pending CXR. (2) Aspiration pneumonia: Qualifiers: Aspiration pneumonia type: unspecified Laterality: bilateral Lung location: lower lobe of lung Qualified Code(s): J69.0 - Pneumonitis due to inhalation of food and vomit Code(s): J69.0 - Pneumonitis due to inhalation of food and vomit Status: Acute Assessment and Plan: Patient with chronic multi lobular lower lobe pneumonitis likely secondary to aspiration from G-tube CXR: Patchy bilateral lower lobe infiltrates, left greater than right, suggesting bilateral pneumonia versus aspiration pneumonitis * Mgt as above. * Currently on meropenem IV, azithromycin and Vancomycin. * MRSA positive * history of dysphagia and with G-tube * Tube feedings continuing at slower rate. * TF rate decreased with worsening renal function per nephro recommendations. * Continue suctioning as needed. * Continue to follow blood cultures, NGTD. (3) End-stage renal disease on hemodialysis: Code(s): N18.6 - End stage renal disease; Z99.2 - Dependence on renal dialysis Status: Acute Assessment and Plan: * Cr trended up today 3>>4.2 * nephrology following and managing hemo dialysis * TF rate decreased with worsening renal function per glass bulb machine adjuster recommendations. * Continue sevelamer carbonate * Avoid nephrotoxic drugs. * Monitor electrolytes and correct as needed. * Meds dosing per renal function. (4) Atrial fibrillation with RVR: Code(s): I48.91 - Unspecified atrial fibrillation Status: Acute Assessment and Plan: Hx of AFib and was in AFib RVR on admission. * Still with episodes of tachycardia > 110. * Started on Amiodarone per cardiology. * Continue Diltiazem. * Continue Metoprolol BID. * Seen Practical Nurse. * Continue apixaban * Continue tele monitoring. * Continue to adjust meds as needed. (5) Hypertension: Code(s): I10 - Essential (primary) hypertension Status: Chronic Assessment and Plan: * BP better controlled. * Continue to adjust meds as needed. (6) Dementia: Code(s): F03.90 - Unspecified dementia, unspecified severity, without behavioral disturbance, psychotic disturbance, mood disturbance, and anxiety Status: Chronic Assessment and Plan: Home meds resumed. (7) Dysphagia: Code(s): R13.10 - Dysphagia, unspecified Status: Acute Assessment and Plan: * Continue TF and adjust rate as tolerated. * Seen by dietitian and we'll follow recommendations. * continue to monitor for aspiration and residuals. (8) UTI (urinary tract infection): Code(s): N39.0 - Urinary tract infection, site not specified Status: Acute Assessment and Plan: patient's urine was nitrate and leukocytosis positive history of indwelling catheter for retention however was straight cathed in the ER * Urine culture negative. * No treatment required. (9) Anemia: Code(s): D64.9 - Anemia, unspecified Status: Chronic Assessment and Plan: - Possibly related to ESRD vs/+ acute blood loss from wound vs other bleeding. * hemoglobin improved post 1 unit PRBC's transfusion; 6.4>>8.3>>8.8 * Continue to monitor Hgb closely and transfuse for Hgb <7 * Epogen per nephrology. * Monitor for obvious bleeding signs with Eliquis use. (10) Sacral wound: Code(s): S31.000A - Unspecified open wound of lower back and pelvis without penetration into retroperitoneum, initial encounter Status: Acute Assessment and Plan: Patient with multiple pressure open areas on buttocks and unstageable sacral wound. * Seen by wound nurse. * Q 2 Turns * Mepilex on sacrum. * continue IV vancomycin for now. Plan Code status: Full code DVT prophylaxis: Eliquis Stress ulcer prophylaxis: Protonix 40 daily PT/OT notes: patient bedridden Disposition: patient was admitted to the medical unit for further evaluation and treatment sepsis secondary to aspiration pneumonia. Continue hemo-dialysis per nephrology scheduling. Continue IV meropenem, azithromycin and Vancomycin for aspiration PNA. Repeat CXR pending. Nephrology following for CKD dependent on HD. Time Spent With Patient Time with patient: 15 - 25 minutes Subjective Date/time seen: 04/23/24 15:59 Patient non-verbal. Interval history: Patient calm on bedrest with no signs of acute distress noted. Review of Systems Review of Systems: ROS unobtainable: Yes unobtainable due to medical condition and unobtainable due to mental status Exam Narrative: * GENERAL: Alert but non-verbal. No acute distress. * EYES: EOMI. No scleral icterus. PERRLA. * HEENT: Dry mucous membranes. * LUNGS: Coarse and congested. No accessory muscle use. * CARDIOVASCULAR: irregularly irregular . No murmurs. * ABDOMEN: Soft, non tender, and non-distended. G-tube LUQ intact. * EXTREMITIES: No edema. Non-tender, Bilateral lower extremity contracture. * SKIN: No rashes or lesions. Skin warm and dry. * NEUROLOGIC: Non-verbal. Jacek LE contracture. * PSYCHIATRIC:Unable to assess due to non-verbal status. Objective Data Vital Signs Vital Signs: Vital Signs - 24 hr 04/22/24 16:04 04/22/24 18:35 04/22/24 20:00 Temperature 99.3 F Pulse Rate 112 H 79 123 H Respiratory Rate 28 H Blood Pressure 153/87 H Pulse Oximetry 100 Oxygen Delivery 04/22/24 21:29 04/23/24 00:00 04/23/24 01:48 Temperature 97.7 F 98.3 F Pulse Rate 118 H 104 H 107 H Respiratory Rate 26 H 22 H Blood Pressure 139/53 L 135/71 Pulse Oximetry 92 91 Oxygen Delivery 04/23/24 04:00 04/23/24 06:00 04/23/24 08:04 Temperature 97.8 F Pulse Rate 114 H 115 H 118 H Respiratory Rate 22 H Blood Pressure 154/52 H Pulse Oximetry 93 Oxygen Delivery 04/23/24 08:25 04/23/24 10:00 04/23/24 11:10 Temperature 98.4 F Pulse Rate 118 H 120 H Respiratory Rate 18 Blood Pressure 126/46 L Pulse Oximetry 100 100 Oxygen Delivery Room Air 04/23/24 12:05 04/23/24 13:37 Temperature 98.6 F Pulse Rate 88 97 Respiratory Rate 24 H Blood Pressure 151/65 H Pulse Oximetry 95 Oxygen Delivery Intake/Output Intake/Output: Intake & Output 04/20/24 04/21/24 04/22/24 04/23/24 23:59 23:59 23:59 23:59 Intake Total 600 1056 2753 420 Output Total 1500 0 Balance 600 1056 1253 420 Meds/Results Medications: Active Medications Generic Name Dose Route Start Last Admin Trade Name Freq PRN Reason Stop Dose Admin Acetaminophen 650 mg 04/19/24 08:46 Acetaminophen 650 Mg Suppository RECTAL Q6H PRN Mild Pain (1-3) or Fever Allopurinol 100 mg/ 400 mg 04/19/24 21:00 04/22/24 20:33 Allopurinol 300 mg PO 400 mg HS LOKESH Administration Atorvastatin Calcium 20 mg 04/19/24 21:00 04/22/24 20:33 Atorvastatin 20 Mg Tablet FEED TUBE 20 mg HS LOKESH Administration Dextrose 12.5 gm 04/19/24 14:29 Dextrose 50% 25 Gm/50 Ml Syringe IV PUSH PRN PRN Hypoglycemia Protocol Diltiazem HCl 90 mg 04/22/24 14:00 04/23/24 13:37 Diltiazem Hcl 30 Mg Tablet FEED TUBE 90 mg Q8HR LOKESH Administration Doxazosin Mesylate 1 mg 04/20/24 09:00 04/23/24 08:12 Doxazosin Mesylate 1 Mg Tablet FEED TUBE 1 mg DAILY LOKESH Administration Folic Acid 1 mg 04/20/24 09:00 04/23/24 08:12 Folic Acid 1 Mg Tablet FEED TUBE 1 mg DAILY LOKESH Administration Furosemide 80 mg 04/19/24 17:00 04/23/24 08:12 Furosemide 80 Mg Tablet FEED TUBE 80 mg BID LOKESH Administration Glucagon 1 mg 04/19/24 14:29 Glucagon For Inj 1 Mg Vial IM PRN PRN Hypoglycemia Protocol Glucose 15 gm 04/19/24 14:29 Glucose Oral Gel 15 Gm Of Glucse In 37.5 Gm Tube PO PRN PRN Hypoglycemia Protocol Hydralazine HCl 10 mg 04/19/24 14:20 Hydralazine Hcl 20 Mg/Ml Vial IV PUSH Q8H PRN Blood Pressure - High Meropenem 500 mg in 100 mls @ 200 mls/hr 04/19/24 16:00 04/22/24 16:38 IVPB 200 mls/hr Q24H LOKESH Administration Azithromycin 500 mg in 250 mls @ 250 mls/hr 04/19/24 12:00 04/23/24 11:10 Zithromax IVPB 250 mls/hr Q24H LOKESH Administration Dextrose 1,000 mls @ 100 mls/hr 04/19/24 14:29 Dextrose 5% 1,000 Ml IVPB PRN PRN Hypoglycemia Protocol Insulin Aspart 2 - 5 units 04/20/24 12:00 04/23/24 12:27 Insulin Aspart (*Bkc) 100 Units/Ml SUB-Q Not Given Q6HR LOKESH Protocol Lansoprazole 30 mg 04/19/24 21:00 04/23/24 08:12 Lansoprazole Odt 30 Mg Tab.Rap.Dr FEED TUBE 30 mg Q12HR LOKESH Administration Levetiracetam 500 mg 04/19/24 21:00 04/23/24 08:12 Levetiracetam Oral Caitlyn 500 Mg/5 Ml Udc FEED TUBE 500 mg Q12HR LOKESH Administration Metoprolol Tartrate 25 mg 04/23/24 10:45 04/23/24 11:10 Metoprolol Tartrate 25 Mg Tablet FEED TUBE 25 mg Q12HR LOKESH Administration Ondansetron HCl 4 mg 04/19/24 08:40 Ondansetron Inj 4 Mg/2 Ml Vial IV PUSH Q6H PRN Nausea And Vomiting Pantoprazole Sodium 40 mg 04/19/24 09:25 04/23/24 08:12 Pantoprazole Sodium Iv 40 Mg Vial IV PUSH 40 mg QAM LOKESH Administration Polyethylene Glycol 17 gm 04/19/24 14:20 Polyethylene Glycol 3350 17 Gm Powd.Pack PO QAM PRN Constipation Ropinirole HCl 0.5 mg 04/20/24 09:00 04/22/24 13:24 Ropinirole Hcl 0.5 Mg Tablet FEED TUBE 0.5 mg TuThSa@0900 LOKESH Administration Vancomycin HCl 1 each 04/19/24 17:35 Vancomycin For Hemodialysis IVPB PRN PRN Vancomycin Protocol Radiology Results: ITS Impressions Head CT 04/18/24 14:30 IMPRESSION: Cerebral atherosclerosis and chronic small vessel ischemic changes of the cerebral white matter 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 Cerebral and cerebellar atrophy No acute intracranial finding Chest X-Ray 04/18/24 15:57 IMPRESSION: Patchy bilateral lower lobe infiltrates, left greater than right, suggesting bilateral pneumonia versus aspiration pneumonitis Labs Labs: Laboratory Results - last 24 hr 04/18/24 04/23/24 04/23/24 19:37 00:51 06:52 WBC 12.0 H RBC 2.94 L Hgb 8.4 L Hct 27.3 L MCV 92.9 MCH 28.6 MCHC 30.8 L RDW 16.6 H Plt Count 306 MPV 10.3 Immature Gran % (Auto) 1.4 H Neut % (Auto) 85.4 H Lymph % (Auto) 7.8 L Harris % (Auto) 4.3 Eos % (Auto) 0.8 Baso % (Auto) 0.3 Lymph # (Auto) 0.93 Harris # (Auto) 0.5 Eos # (Auto) 0.1 Baso # (Auto) 0.0 Abs Immat Gran (auto) 0.17 H Absolute Neuts (auto) 10.3 H Absolute Nucleated RBC 0.000 Nucleated RBC % 0.0 O2 Liters/Min Not Reportable Sodium 137 Potassium 4.2 Chloride 98 Carbon Dioxide 34 H Anion Gap 5 BUN 54 H D Creatinine 3.00 H Estim Creat Clear Calc 13 Estimated GFR 25 L Glucose 162 H POC Capillary Glucose 197 H Calcium 9.1 Magnesium 2.2 Total Bilirubin 0.8 AST 130 H ALT 114 H Alkaline Phosphatase 128 H Total Protein 8.0 Albumin 3.4 L 04/23/24 12:09 WBC RBC Hgb Hct MCV MCH MCHC RDW Plt Count MPV Immature Gran % (Auto) Neut % (Auto) Lymph % (Auto) [place] % (Auto) Eos % (Auto) Baso % (Auto) Lymph # (Auto) Harris # (Auto) Eos # (Auto) Baso # (Auto) Abs Immat Gran (auto) Absolute Neuts (auto) Absolute Nucleated RBC Nucleated RBC % O2 Liters/Min Sodium Potassium Chloride Carbon Dioxide Anion Gap BUN Creatinine Estim Creat Clear Calc Estimated GFR Glucose POC Capillary Glucose 186 H Calcium Magnesium Total Bilirubin AST ALT Alkaline Phosphatase Total Protein Albumin Quality VTE Prophylaxis VTE prophylaxis: mechanical ordered and pharmacologic ordered Hospitalist MIPS Advance Care Plan I have confirmed that the patient's Advanced Care Plan is present, code status is documented, or surrogate decision maker is listed in patient medical record.: Yes Medication Reconciliation I have utilized all available resources to obtain, update and review the patients current medications (includes all prescriptions, OTC, herbals, cannabis, and nutritional supplements).: Yes
[2024-04-23] MEDS: MEROPENEM 500 MG/NS 100 ML 500 MG/100 ML BAG 200 MG IVPB (16:36)
[2024-04-23 18:26] LABS: Glucose Point of Care 166 mg/dl (65-105)
[2024-04-23] MEDS: HEPARIN SODIUM 5,000 UNITS/ML VIAL 5000 UNITS SUB-Q (19:55)
[2024-04-23] MEDS: ATORVASTATIN 20 MG TABLET FEED TUBE (19:57)
[2024-04-24] VITALS (35 sets, daily range): BP systolic 114–161; BP diastolic 41–67; PULSE 58–132; RESP 18–28; TEMP 36.6–37; O2SAT 88–100
--- NOTE | 2024-04-24 | ECHO_ITS ---
Patient Info Name: Jules Mitchell Age: 78 years : 1945 Gender: Male Ht: 67 in Wt: 110 lbs BSA: 1.52 m2 HR: 135 bpm BP: 126 / 53 mmHg Heart Rhythm: Atrial Fibrillation Technical Quality: Good Exam Date: 04/24/2024 2:41 PM Exam Location: Echo Lab Patient Status: Inpatient Admit Date: 04/19/2024 Staff Ordering Physician: Debby Justin MD/jan) Upsetter Helper: Sherice Cloud RDCS Attending Provider: Neli Joseph APRN Referring Physician: ANDERSON; Exam Type: CA echo doppler color flow Study Info Complete two-dimensional, color flow and Doppler transthoracic echocardiogram is performed. Summary 1. Complete two-dimensional, color flow and Doppler transthoracic echocardiogram is performed. 2. LVEF 55-60% , moderate concentric LVH, small pericardial effusion, mild to moderate aortic insufficiency. No valvular vegetation. 3. Patient is in atrial fibrillation. Left Ventricular Outflow Tract Name Value Normal LVOT 2D LVOT Diameter 2.3 cm LVOT Doppler LVOT Peak Gradient 3 mmHg Pulmonic Valve Name Value Normal PV Doppler PV Peak Gradient 7 mmHg PV Regurgitation Doppler AR Peak End Diastolic Velocity 125 cm/s Mitral Valve Name Value Normal MV Doppler MV Peak Gradient 4 mmHg MV Mean Gradient 1 mmHg MV Decel Baca 190 cm/s2 MV PHT 76 ms MV Area (PHT) 2.9 cm2 4.0-5.0 MV Diastolic Function MV E Peak Velocity 50 cm/s MV A Peak Velocity 81 cm/s MV E/A 0.6 MV Decel Time 262 ms MV Annular TDI MV E/e' (Septal) 8.8 <=8.0 MV E/e' (Lateral) 6.5 <=8.0 MV E/e' (Average) 7.7 Tricuspid Valve Name Value Normal TV Regurgitation Doppler TR Peak Velocity 335 cm/s TR Peak Gradient 45 mmHg Aortic Valve Name Value Normal AV Doppler AV Peak Velocity 150 cm/s AV Peak Gradient 9 mmHg AV Area (Cont Eq Pilo) 2.2 cm2 AV Regurgitation 2D LVOT Area 4.1 cm2 Ventricles Name Value Normal LV Dimensions 2D/MM IVS Diastolic Thickness (2D) 1.1 cm 0.6-1.0 LVID Diastole (2D) 4.9 cm 4.2-5.8 LVIW Diastolic Thickness (2D) 0.8 cm 0.6-1.0 LVID Systole (2D) 4.3 cm 2.5-4.0 LVOT Diameter 2.3 cm LV Mass (2D Cubed) 166.05 g 88.00-224.00 LV Mass Index (2D Cubed) 109 g/m2 49-115 Relative Wall Thickness (2D) 0.32 LV Fractional Shortening/Ejection Fraction 2D/MM LV Fractional Shortening (2D) 11 % 25-43 LV EF (2D Teicholz) 25 % 52-72 Report Signatures
[2024-04-24 00:56] LABS: Glucose Point of Care 172 mg/dl (65-105)
[2024-04-24 05:56] LABS: Basophils Percent Auto 0.5 % (0.2-1.2); Eosinophils Absolute Auto 0.2 K/mm3 (0-0.3); Eosinophils Percent Auto 2.3 % (0-4.4); Hematocrit 28.2 % (42.0-52.0); Hemoglobin 8.8 g/dL (14.0-18.0); Immature Granulocyte Absolute 0.15 K/mm3 (0.00-0.031); Immature Granulocyte Percent A 1.7 % (0-0.5); Lymphocytes Absolute Auto 0.93 K/mm3 (0.9-3.2); Lymphocytes Percent Auto 10.5 % (18.3-44.2); Mean Corpuscular HGB Conc 31.2 g/dl (32-36); Mean Corpuscular Hemoglobin 29.4 pg (26-34); Mean Corpuscular Volume 94.3 fl (80-100); Mean Platelet Volume 10.7 fl (7.4-10.4); Monocytes Absolute Auto 0.5 K/mm3 (0.1-0.6); Monocytes Percent Auto 5.9 % (2.6-8.5); Neutrophils Percent Auto 79.1 % (45.5-73.1); Platelet Count Result 306 k/mm3 (150-375); Red Blood Count 2.99 M/mm3 (4.6-6.20); Red Cell Distribution Width 16.6 % (11.5-14.5); White Blood Count 8.9 K/mm3 (4.5-10.0)
[2024-04-24 06:07] LABS: Alanine Aminotransferase 96 U/L (6-50); Albumin Level 3.4 g/dL (3.5-5.1); Alkaline Phosphatase 160 U/L (38-126); Anion Gap 6 mmol/L (4-12); Aspartate Amino Transferase 109 U/L (17-59); Bilirubin,Total 0.7 mg/dL (0.2-1.3); Blood Urea Nitrogen 75 mg/dL (9-20); Calcium 9.4 mg/dL (8.4-10.2); Carbon Dioxide 36 mmol/L (22-30); Chloride 96 mmol/L (98-107); Estimated CRCL calculation 9 ml/min; Estimated Glomerular Filt Rate 17; Glucose 176 mg/dL (65-110); Magnesium 2.3 mg/dL (1.6-2.3); Potassium 4.5 mmol/L (3.4-5.0); Sodium 138 mmol/L (137-145)
[2024-04-24 06:18] LABS: Vancomycin Random 16.5 ug/mL (10-20)
[2024-04-24] MEDS: dilTIAZem HCL 30 MG TABLET 90 MG FEED TUBE ×3 (06:18→21:12)
[2024-04-24 06:57] LABS: Glucose Point of Care 179 mg/dl (65-105)
--- NOTE | 2024-04-24 07:55 | PM.PNNEP ---
Progress Note: A&P Assessment and Plan (1) Aspiration pneumonia: Qualifiers: Aspiration pneumonia type: unspecified Laterality: bilateral Lung location: lower lobe of lung Qualified Code(s): J69.0 - Pneumonitis due to inhalation of food and vomit Code(s): J69.0 - Pneumonitis due to inhalation of food and vomit Status: Acute Assessment and Plan: The patient has a G-tube. He does not swallow. Patient has aspiration pneumonia. Still has some posterior pharyngeal secretions as as yesterday Breathing okay. Does not seem short of (2) End stage renal disease: Code(s): N18.6 - End stage renal disease Status: Chronic Assessment and Plan: The patient gets dialysis 3 times a week on Tuesdays and Saturdays. Patient is due for dialysis today. Orders are written Patient looks comfortable right now. Electrolytes look okay Volume status looks good. Will remove little bit of fluid dialysis His BUN is better, 75 pre dialysis today (3) Hypertension: Code(s): I10 - Essential (primary) hypertension Status: Chronic Assessment and Plan: Blood pressure is erratic.. Systolic ranging from 110-161 Patient is on metoprolol, diltiazem, furosemide, and has a p.r.n. for hydralazine. Heart rate overall has been much better. Will remove some fluid today on dialysis see how his blood pressure is. (4) Anemia: Code(s): D64.9 - Anemia, unspecified Status: Chronic Assessment and Plan: Hemoglobin dropped the other day. He received transfusion. Hemoglobin up to 8.8 today. He will get another dose of the project today (5) History of atrial fibrillation: Code(s): Z86.79 - Personal history of other diseases of the circulatory system Status: Acute Assessment and Plan: Patient has a history of AFib. Currently he is in sinus rhythm. Heart rate is better (6) Dementia: Code(s): F03.90 - Unspecified dementia, unspecified severity, without behavioral disturbance, psychotic disturbance, mood disturbance, and anxiety Status: Chronic Assessment and Plan: The patient looks like he is at baseline Subjective Date/time seen: 04/24/24 07:55 Interval history: Patient unresponsive Eyes are and occasionally regards the examiner. Exam Narrative: WDWN non communicative in NAD skin no rash or subQ nodules head ncat lungs coarse upper airway noise cor reg no rub or gallop abd BS+ nontender and soft ext no edema Objective Data Vital Signs Vital Signs: Vital Signs - 24 hr 04/23/24 08:04 04/23/24 08:25 04/23/24 10:00 Temperature 98.4 F Pulse Rate 118 H 118 H Respiratory Rate 18 Blood Pressure 126/46 L Pulse Oximetry 100 100 Oxygen Delivery Room Air 04/23/24 11:10 04/23/24 12:05 04/23/24 13:37 Temperature 98.6 F Pulse Rate 120 H 88 97 Respiratory Rate 24 H Blood Pressure 151/65 H Pulse Oximetry 95 Oxygen Delivery 04/23/24 16:04 04/23/24 18:00 04/23/24 19:53 Temperature 98.8 F 97.9 F Pulse Rate 96 107 H 99 Respiratory Rate 22 H 18 Blood Pressure 136/51 L 149/57 H Pulse Oximetry 97 97 Oxygen Delivery 04/23/24 19:57 04/23/24 20:00 04/24/24 00:00 Temperature Pulse Rate 93 97 88 Respiratory Rate Blood Pressure Pulse Oximetry Oxygen Delivery 04/24/24 01:48 04/24/24 04:00 04/24/24 06:00 Temperature 98 F 97.9 F Pulse Rate 83 96 110 H Respiratory Rate 22 H 22 H Blood Pressure 117/55 L 161/49 H Pulse Oximetry 96 94 Oxygen Delivery Intake/Output Intake/Output: Intake & Output 04/21/24 04/22/24 04/23/24 04/24/24 23:59 23:59 23:59 23:59 Intake Total 1056 2853 988 701 Output Total 1500 0 Balance 1056 1353 988 701 Meds/Results Medications: Active Medications Generic Name Dose Route Start Last Admin Trade Name Freq PRN Reason Stop Dose Admin Acetaminophen 650 mg 04/19/24 08:46 Acetaminophen 650 Mg Suppository RECTAL Q6H PRN Mild Pain (1-3) or Fever Allopurinol 100 mg/ 400 mg 04/19/24 21:00 04/23/24 19:56 Allopurinol 300 mg PO 400 mg HS LOKESH Administration Atorvastatin Calcium 20 mg 04/19/24 21:00 04/23/24 19:57 Atorvastatin 20 Mg Tablet FEED TUBE 20 mg HS LOKESH Administration Dextrose 12.5 gm 04/19/24 14:29 Dextrose 50% 25 Gm/50 Ml Syringe IV PUSH PRN PRN Hypoglycemia Protocol Diltiazem HCl 90 mg 04/22/24 14:00 04/24/24 06:18 Diltiazem Hcl 30 Mg Tablet FEED TUBE 90 mg Q8HR LOKESH Administration Doxazosin Mesylate 1 mg 04/20/24 09:00 04/23/24 08:12 Doxazosin Mesylate 1 Mg Tablet FEED TUBE 1 mg DAILY LOKESH Administration Epoetin Bacilio-epbx 20,000 units 04/24/24 12:00 Epoetin Bacilio-Epbx 20,000 Units/Ml Vial IV PUSH 04/24/24 12:01 ONCE ONE Folic Acid 1 mg 04/20/24 09:00 04/23/24 08:12 Folic Acid 1 Mg Tablet FEED TUBE 1 mg DAILY LOKESH Administration Furosemide 80 mg 04/19/24 17:00 04/23/24 16:36 Furosemide 80 Mg Tablet FEED TUBE 80 mg BID LOKESH Administration Glucagon 1 mg 04/19/24 14:29 Glucagon For Inj 1 Mg Vial IM PRN PRN Hypoglycemia Protocol Glucose 15 gm 04/19/24 14:29 Glucose Oral Gel 15 Gm Of Glucse In 37.5 Gm Tube PO PRN PRN Hypoglycemia Protocol Heparin Sodium (Porcine) 5,000 units 04/23/24 21:00 04/23/24 19:55 Heparin Sodium 5,000 Units/Ml Vial SUB-Q 5,000 units Q12HR LOKESH Administration Hydralazine HCl 10 mg 04/19/24 14:20 Hydralazine Hcl 20 Mg/Ml Vial IV PUSH Q8H PRN Blood Pressure - High Meropenem 500 mg in 100 mls @ 200 mls/hr 04/19/24 16:00 04/23/24 16:36 IVPB 200 mls/hr Q24H LOKESH Administration Azithromycin 500 mg in 250 mls @ 250 mls/hr 04/19/24 12:00 04/23/24 11:10 Zithromax IVPB 250 mls/hr Q24H LOKESH Administration Dextrose 1,000 mls @ 100 mls/hr 04/19/24 14:29 Dextrose 5% 1,000 Ml IVPB PRN PRN Hypoglycemia Protocol Vancomycin HCl 500 mg in 100 mls @ 100 mls/hr 04/24/24 15:00 Vancomycin 500 Mg/Ns 100 Ml IVPB 04/24/24 15:59 ONCE ONE Albumin Human 50 mls @ 999 mls/hr 04/24/24 06:52 Albutein IVPB 04/25/24 06:51 Q10M PRN HYPOTENSION Insulin Aspart 2 - 5 units 04/20/24 12:00 04/24/24 06:48 Insulin Aspart (*Bkc) 100 Units/Ml SUB-Q Not Given Q6HR [facility] Protocol Lansoprazole 30 mg 04/19/24 21:00 04/23/24 19:57 Lansoprazole Odt 30 Mg Tab.Rap.Dr FEED TUBE 30 mg Q12HR LOKESH Administration Levetiracetam 500 mg 04/19/24 21:00 04/23/24 19:55 Levetiracetam Oral Caitlyn 500 Mg/5 Ml Udc FEED TUBE 500 mg Q12HR LOKESH Administration Metoprolol Tartrate 25 mg 04/23/24 10:45 04/23/24 19:57 Metoprolol Tartrate 25 Mg Tablet FEED TUBE 25 mg Q12HR LOKESH Administration Ondansetron HCl 4 mg 04/19/24 08:40 Ondansetron Inj 4 Mg/2 Ml Vial IV PUSH Q6H PRN Nausea And Vomiting Pantoprazole Sodium 40 mg 04/19/24 09:25 04/23/24 08:12 Pantoprazole Sodium Iv 40 Mg Vial IV PUSH 40 mg QAM LOKESH Administration Polyethylene Glycol 17 gm 04/19/24 14:20 Polyethylene Glycol 3350 17 Gm Powd.Pack PO QAM PRN Constipation Ropinirole HCl 0.5 mg 04/20/24 09:00 04/22/24 13:24 Ropinirole Hcl 0.5 Mg Tablet FEED TUBE 0.5 mg TuThSa@0900 LOKESH Administration Vancomycin HCl 1 each 04/19/24 17:35 Vancomycin For Hemodialysis IVPB PRN PRN Vancomycin Protocol Radiology Results: ITS Impressions Head CT 04/18/24 14:30 IMPRESSION: Cerebral atherosclerosis and chronic small vessel ischemic changes of the cerebral white matter 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 Cerebral and cerebellar atrophy No acute intracranial finding Chest X-Ray 04/18/24 15:57 IMPRESSION: Patchy bilateral lower lobe infiltrates, left greater than right, suggesting bilateral pneumonia versus aspiration pneumonitis Labs Labs: Laboratory Results - last 24 hr 04/18/24 04/23/24 04/23/24 19:37 12:09 18:18 WBC RBC Hgb Hct MCV MCH MCHC RDW Plt Count MPV Immature Gran % (Auto) Neut % (Auto) Lymph % (Auto) [place] % (Auto) Eos % (Auto) Baso % (Auto) Lymph # (Auto) [place] # (Auto) Eos # (Auto) Baso # (Auto) Abs Immat Gran (auto) Absolute Neuts (auto) Absolute Nucleated RBC Nucleated RBC % O2 Liters/Min Not Reportable Sodium Potassium Chloride Carbon Dioxide Anion Gap BUN Creatinine Estim Creat Clear Calc Estimated GFR Glucose POC Capillary Glucose 186 H 166 H Calcium Magnesium Total Bilirubin AST ALT Alkaline Phosphatase Total Protein Albumin Random Vancomycin 04/24/24 04/24/24 04/24/24 00:52 05:31 06:34 WBC 8.9 RBC 2.99 L Hgb 8.8 L Hct 28.2 L MCV 94.3 MCH 29.4 MCHC 31.2 L RDW 16.6 H Plt Count 306 MPV 10.7 H Immature Gran % (Auto) 1.7 H Neut % (Auto) 79.1 H Lymph % (Auto) 10.5 L [place] % (Auto) 5.9 Eos % (Auto) 2.3 Baso % (Auto) 0.5 Lymph # (Auto) 0.93 [place] # (Auto) 0.5 Eos # (Auto) 0.2 Baso # (Auto) 0.0 Abs Immat Gran (auto) 0.15 H Absolute Neuts (auto) 7.0 H Absolute Nucleated RBC 0.000 Nucleated RBC % 0.0 O2 Liters/Min Sodium 138 Potassium 4.5 Chloride 96 L Carbon Dioxide 36 H Anion Gap 6 BUN 75 H D Creatinine 4.20 H Estim Creat Clear Calc 9 Estimated GFR 17 L Glucose 176 H POC Capillary Glucose 172 H 179 H Calcium 9.4 Magnesium 2.3 Total Bilirubin 0.7 AST 109 H ALT 96 H Alkaline Phosphatase 160 H Total Protein 7.0 Albumin 3.4 L Random Vancomycin 16.5
--- NOTE | 2024-04-24 08:13 | P.CONCA_ITS ---
Assessment and Plan Assessment and plan (1) History of atrial fibrillation: Code(s): Z86.79 - Personal history of other diseases of the circulatory system Status: Acute Assessment and Plan: Due to end-stage renal disease the options for treatment of his atrial fibrillation a limited because never sotalol nor dofetilide can be used. Due to his age class 1 C antiarrhythmic medications should not be used. Would recommend adding amiodarone 200 mg once a day for next week then decreasing that to once a day would be recommended. Hold amiodarone if heart rate is less than 60 beats per minute or systolic blood pressure less than 90 mmHg. Okay to give p.r.n. beta magaly IV such as Lopressor if needed. Okay to continue diltiazem 90 mg 3 times a day hold if systolic blood pressure is less than 100 mmHg or heart rate is less than 70 The dose of diltiazem may need to be decreased when amiodarone dose is started Consider decreasing allopurinol dose to 100 mg once a day to degrees interaction. I am aware with patient on statin is of her max diltiazem and p.r.n. beta blockers I recommended echo to be ordered to assess LV function and and assess etiology off systolic and diastolic murmurs Will review echo results and make additional recommendations Thank you very much for allowing us to participate in his patient's care Case was discussed with the ICU team (2) Dementia: Code(s): F03.90 - Unspecified dementia, unspecified severity, without behavioral disturbance, psychotic disturbance, mood disturbance, and anxiety Status: Chronic Assessment and Plan: Deviated primary care team (3) Hypertension: Code(s): I10 - Essential (primary) hypertension Status: Chronic Assessment and Plan: Primary and Nephrology to manage (4) Chronic anticoagulation: Code(s): Z79.01 - [facility] (current) use of anticoagulants Status: Acute Assessment and Plan: Continue anticoagulation unless otherwise contraindicated (5) Dysphagia: Code(s): R13.10 - Dysphagia, unspecified Status: Acute Assessment and Plan: has feeding tube in place in the abdomen (6) Anemia: Code(s): D64.9 - Anemia, unspecified Status: Chronic Assessment and Plan: Will defer this problem primary and Nephrology team (7) End stage renal disease: Code(s): N18.6 - End stage renal disease Status: Chronic Assessment and Plan: Will defer this problem Nephrology team History of Present Illness History of Present Illness Consult date/time: 04/24/24 08:13 Consult reason: atrial fibrillation Reason For Visit: AFib with RVR, Aspiration pneumonia Narrative: The patient was examined in her room 349 in ICU. At around 6:00 a.m.. The port and inflammation in that includes labs EKGs imaging results of testing were reviewed by me in person. The patient is 78-year-old male with known end-stage renal disease receiving dialysis Saturdays. Is in atrial fibrillation rapid ventricle response. Shoulder for medications that include but not limited to calcium channel magaly diltiazem and beta-magaly were administered previously. Only limited ability to control his ventricular rate was achieved. Is currently receiving diltiazem 90 mg 3 times a day and p.r.n. beta-magaly. The dose of diltiazem may need to be decreased when amiodarone dose is started Consider decreasing allopurinol dose to 100 mg once a day to degrees interaction. I am aware with patient on statin is of her max diltiazem and p.r.n. 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 (CADASIL) Feeding by G-tube End-stage renal disease on hemodialysis End stage renal disease Anemia Chronic indwelling Patel catheter Dysphagia History of atrial fibrillation Dementia Arthritis Hypertension Chronic renal failure Surgical History Surgical History History of hip replacement Left Family History Family History Other Diabetes mellitus Hypertension Social History Social History Smoking status: Never smoker Second hand tobacco smoke exposure: No Alcohol intake: never Substance use: never Substance use type: does not use Living arrangements: with family Occupation/Education: retired Gender identity (if verbalized by the patient): Male Spiritual care concerns: No Meds Home Medications and Allergies Home Medications ?Medication ?Instructions ?Recorded ?Confirmed ?Type allopurinol 100 mg tablet 400 mg PO HS 09/19/21 04/19/24 History atorvastatin 20 mg tablet 20 mg feeding tube HS 09/19/21 04/19/24 History folic acid 1 mg tablet 1 mg feeding tube DAILY 09/19/21 04/19/24 History furosemide 80 mg tablet 80 mg feeding tube BID 09/19/21 04/19/24 History polyethylene glycol 3350 17 gram 17 g PO QAM PRN Constipation 09/19/21 04/19/24 History oral powder packet (Miralax) ropinirole 0.5 mg tablet 0.5 mg feeding tube 3XW 09/19/21 04/19/24 History diltiazem HCl 30 mg tablet 30 mg feeding tube TID 10/22/21 04/19/24 History levetiracetam 100 mg/mL oral 500 mg feeding tube BID 05/30/23 04/19/24 History solution doxazosin 2 mg tablet 1 mg feeding tube DAILY 04/19/24 04/19/24 History pantoprazole 40 mg granules 40 mg G-tube Q12H 04/19/24 04/19/24 History delayed-release for susp in packet Allergies Allergy/AdvReac Type Severity Reaction Status Date / Time No Known Allergies Allergy Verified 07/02/23 15:00 Vital Signs Vital Signs - 24 hr 04/23/24 08:25 04/23/24 10:00 04/23/24 11:10 Temperature 36.9 C Pulse Rate 118 H 120 H Respiratory Rate 18 Blood Pressure 126/46 L Pulse Oximetry 100 100 Oxygen Delivery Room Air 04/23/24 12:05 04/23/24 13:37 04/23/24 16:04 Temperature 37.0 C Pulse Rate 88 97 96 Respiratory Rate 24 H Blood Pressure 151/65 H Pulse Oximetry 95 Oxygen Delivery 04/23/24 18:00 04/23/24 19:53 04/23/24 19:57 Temperature 37.1 C 36.6 C Pulse Rate 107 H 99 93 Respiratory Rate 22 H 18 Blood Pressure 136/51 L 149/57 H Pulse Oximetry 97 97 Oxygen Delivery 04/23/24 20:00 04/24/24 00:00 04/24/24 01:48 Temperature 36.6 C Pulse Rate 97 88 83 Respiratory Rate 22 H Blood Pressure 117/55 L Pulse Oximetry 96 Oxygen Delivery 04/24/24 04:00 04/24/24 06:00 Temperature 36.6 C Pulse Rate 96 110 H Respiratory Rate 22 H Blood Pressure 161/49 H Pulse Oximetry 94 Oxygen Delivery Exam 2 Narrative: On physical examination eyes no nystagmus no scleral icterus. ENT patient has mild open mouth mucosa moist tongue appears to be midline. Small PH cannot be assessed because patient appears to be significantly demented and does not follow commands or does not have reasonable ability to keep a conversation. Lungs coarse throughout heart exam irregularly irregular rhythm mild systolic and diastolic murmurs present the neck mild JVD prominence questionable carotid bruit bilaterally. AV fistula in her left upper extremity. Chest wall has no scarring. Abdomen has a feeding tube. Musculoskeletal diffuse joint deformity. Skin patient has several skin may breakdowns. Patient has heel protection device. Neuro hard to assess because patient does not really follow commands Results Labs and Meds 04/24/24 05:31 04/24/24 05:31 Lab results: Cardiac Enzymes 04/24/24 Range/Units 05:31 AST 109 H (17-59) U/L CBC 04/24/24 Range/Units 05:31 WBC 8.9 (4.5-10.0) K/mm3 RBC 2.99 L (4.6-6.20) M/mm3 Hgb 8.8 L (14.0-18.0) g/dL Hct 28.2 L (42.0-52.0) % Plt Count 306 (150-375) k/mm3 Lymph # (Auto) 0.93 (0.9-3.2) K/mm3 [place] # (Auto) 0.5 (0.1-0.6) K/mm3 Eos # (Auto) 0.2 (0-0.3) K/mm3 Baso # (Auto) 0.0 (0.0-0.1) K/mm3 Comprehensive Metabolic Panel 04/24/24 Range/Units 05:31 Sodium 138 (137-145) mmol/L Potassium 4.5 (3.4-5.0) mmol/L Chloride 96 L (98-107) mmol/L Carbon Dioxide 36 H (22-30) mmol/L BUN 75 H D (9-20) mg/dL Creatinine 4.20 H (0.7-1.3) mg/dL Glucose 176 H (65-110) mg/dL Calcium 9.4 (8.4-10.2) mg/dL AST 109 H (17-59) U/L ALT 96 H (6-50) U/L Alkaline Phosphatase 160 H (38-126) U/L Total Protein 7.0 (6.3-8.2) g/dL Albumin 3.4 L (3.5-5.1) g/dL Intake and Output 04/23/24 04/24/24 04/24/24 23:59 07:59 15:59 Intake Total 568 701 Balance 568 701 Intake: Oral 0 Tube Feeding 418 611 Tube Flush 150 90 Other: # Unmeasured Voids 0 Number of Bowel Movements Today 0 Patient Weight 04/24/24 23:59 Weight 49.9 kg Imaging and Cardiology EKG results: report reviewed and image reviewed EKG Interpretation EKG shows: atrial fibrillation (Ventricular rate is 101 beats per minute QRS duration 87 milliseconds QT 301 milliseconds QT corrected for rate 359 milliseconds.)
[2024-04-24] MEDS: EPOETIN ALFA-EPBX 20,000 UNITS/ML VIAL 20000 UNITS IV PUSH (10:13)
[2024-04-24] MEDS: FOLIC ACID 1 MG TABLET FEED TUBE (10:57)
[2024-04-24] MEDS: FUROSEMIDE 80 MG TABLET FEED TUBE ×2 (10:57→17:01)
[2024-04-24] MEDS: DOXAZOSIN MESYLATE 1 MG TABLET FEED TUBE (10:57)
[2024-04-24] MEDS: LANSOPRAZOLE ODT 30 MG TAB.RAP.DR FEED TUBE ×2 (10:57→21:12)
[2024-04-24] MEDS: levETIRAcetam ORAL SOL 500 MG/5 ML UDC FEED TUBE ×2 (10:57→21:12)
[2024-04-24] MEDS: METOPROLOL TARTRATE 25 MG TABLET FEED TUBE ×2 (10:57→21:12)
[2024-04-24] MEDS: HEPARIN SODIUM 5,000 UNITS/ML VIAL 5000 UNITS SUB-Q ×2 (13:46→21:12)
[2024-04-24] MEDS: AZITHROMYCIN 500 MG/NS 250 ML 500 MG/250 ML BAG 250 MG IVPB (13:46)
[2024-04-24] MEDS: rOPINIRole HCL 0.5 MG TABLET FEED TUBE (13:46)
[2024-04-24] MEDS: PANTOPRAZOLE SODIUM IV 40 MG VIAL IV PUSH (13:46)
[2024-04-24 13:49] LABS: Glucose Point of Care 173 mg/dl (65-105)
[2024-04-24] MEDS: LEVALBUTEROL NEB 1.25 MG/3 ML INHALATION ×2 (15:07→21:15)
[2024-04-24] MEDS: VANCOMYCIN 500 MG/NS 100 ML 500 MG/100 ML BAG 100 MG IVPB (15:19)
[2024-04-24] MEDS: ACETAMINOPHEN 650 MG SUPPOSITORY RECTAL (15:57)
[2024-04-24] MEDS: MEROPENEM 500 MG/NS 100 ML 500 MG/100 ML BAG 200 MG IVPB (16:30)
[2024-04-24 17:24] LABS: Glucose Point of Care 176 mg/dl (65-105)
[2024-04-24] MEDS: ATORVASTATIN 20 MG TABLET FEED TUBE (21:13)
[2024-04-25] VITALS (18 sets, daily range): BP systolic 121–137; BP diastolic 43–70; PULSE 61–112; RESP 18–24; TEMP 36.4–37.3; O2SAT 94–100
[2024-04-25 00:42] LABS: Glucose Point of Care 185 mg/dl (65-105)
[2024-04-25] MEDS: LEVALBUTEROL NEB 1.25 MG/3 ML INHALATION ×4 (02:22→21:58)
[2024-04-25] MEDS: dilTIAZem HCL 30 MG TABLET 90 MG FEED TUBE (06:18)
[2024-04-25 06:25] LABS: Basophils Percent Auto 0.4 % (0.2-1.2); Eosinophils Absolute Auto 0.1 K/mm3 (0-0.3); Eosinophils Percent Auto 1.6 % (0-4.4); Hematocrit 26.9 % (42.0-52.0); Hemoglobin 8.2 g/dL (14.0-18.0); Immature Granulocyte Absolute 0.13 K/mm3 (0.00-0.031); Immature Granulocyte Percent A 1.5 % (0-0.5); Lymphocytes Absolute Auto 0.96 K/mm3 (0.9-3.2); Lymphocytes Percent Auto 11.2 % (18.3-44.2); Mean Corpuscular HGB Conc 30.5 g/dl (32-36); Mean Corpuscular Volume 95.1 fl (80-100); Mean Platelet Volume 10.3 fl (7.4-10.4); Monocytes Absolute Auto 0.5 K/mm3 (0.1-0.6); Monocytes Percent Auto 5.5 % (2.6-8.5); Neutrophils Absolute Auto 6.8 K/mm3 (1.3-6.7); Neutrophils Percent Auto 79.8 % (45.5-73.1); Nucleated Red Blood Cells Perc 0.4 % (0.0-0.2); Platelet Count Result 304 k/mm3 (150-375); Red Blood Count 2.83 M/mm3 (4.6-6.20); Red Cell Distribution Width 16.2 % (11.5-14.5); White Blood Count 8.6 K/mm3 (4.5-10.0)
[2024-04-25 06:34] LABS: Alanine Aminotransferase 74 U/L (6-50); Albumin Level 3.4 g/dL (3.5-5.1); Alkaline Phosphatase 156 U/L (38-126); Anion Gap 4 mmol/L (4-12); Aspartate Amino Transferase 74 U/L (17-59); Bilirubin,Total 0.7 mg/dL (0.2-1.3); Blood Urea Nitrogen 46 mg/dL (9-20); Carbon Dioxide 39 mmol/L (22-30); Chloride 96 mmol/L (98-107); Estimated CRCL calculation 13 ml/min; Estimated Glomerular Filt Rate 26; Glucose 175 mg/dL (65-110); Magnesium 2.1 mg/dL (1.6-2.3); Phosphorus 2.2 mg/dL (2.5-4.5); Potassium 4.3 mmol/L (3.4-5.0); Sodium 139 mmol/L (137-145)
--- NOTE | 2024-04-25 07:52 | PM.PNCARD ---
Progress Note: A&P Assessment and Plan (1) Aspiration pneumonia: Qualifiers: Aspiration pneumonia type: unspecified Laterality: bilateral Lung location: lower lobe of lung Qualified Code(s): J69.0 - Pneumonitis due to inhalation of food and vomit Code(s): J69.0 - Pneumonitis due to inhalation of food and vomit Status: Acute Assessment and Plan: The patient has a G-tube. He does not swallow. Patient has aspiration pneumonia. Still has some posterior pharyngeal secretions as as yesterday Breathing okay. Does not seem short of (2) End stage renal disease: Code(s): N18.6 - End stage renal disease Status: Chronic Assessment and Plan: The patient gets dialysis 3 times a week on Tuesdays and Saturdays. Patient is due for dialysis today. Orders are written Patient looks comfortable right now. Electrolytes look okay Volume status looks good. Will remove little bit of fluid dialysis His BUN is better, 75 pre dialysis today (3) Hypertension: Code(s): I10 - Essential (primary) hypertension Status: Chronic Assessment and Plan: Blood pressure is erratic.. Systolic ranging from 110-161 Patient is on metoprolol, diltiazem, furosemide, and has a p.r.n. for hydralazine. Heart rate overall has been much better. Will remove some fluid today on dialysis see how his blood pressure is. (4) Anemia: Code(s): D64.9 - Anemia, unspecified Status: Chronic Assessment and Plan: Hemoglobin dropped the other day. He received transfusion. Hemoglobin up to 8.8 today. He will get another dose of the project today (5) History of atrial fibrillation: Code(s): Z86.79 - Personal history of other diseases of the circulatory system Status: Acute Assessment and Plan: Patient has a history of AFib. Currently he is in sinus rhythm. Heart rate is better (6) Dementia: Code(s): F03.90 - Unspecified dementia, unspecified severity, without behavioral disturbance, psychotic disturbance, mood disturbance, and anxiety Status: Chronic Assessment and Plan: The patient looks like he is at baseline Subjective Date/time seen: 04/25/24 07:52 Interval history: Seen in fu today in ICU. ECHO and other pertienet data was reviewed Review of Systems Review of Systems: The patient cannot provide any Exam Narrative: On physical examination eyes no nystagmus no scleral icterus. ENT patient has mild open mouth mucosa moist tongue appears to be midline. Small PH cannot be assessed because patient appears to be significantly demented and does not follow commands or does not have reasonable ability to keep a conversation. Lungs coarse throughout heart exam irregularly irregular rhythm mild systolic and diastolic murmurs present the neck mild JVD prominence questionable carotid bruit bilaterally. AV fistula in her left upper extremity. Chest wall has no scarring. Abdomen has a feeding tube. Musculoskeletal diffuse joint deformity. Skin patient has several skin may breakdowns. Patient has heel protection device. Neuro hard to assess because patient does not really follow commands Objective Data Vital Signs Vital Signs: Vital Signs - 24 hr 04/24/24 08:00 04/24/24 08:00 04/24/24 08:45 Temperature Pulse Rate 97 75 Respiratory Rate Blood Pressure 130/52 L Pulse Oximetry Oxygen Delivery Room Air Oxygen Flow Rate 04/24/24 09:07 04/24/24 09:21 04/24/24 09:30 Temperature 36.6 C Pulse Rate 90 91 86 Respiratory Rate 20 Blood Pressure 131/56 L 140/59 L 158/59 H Pulse Oximetry 99 Oxygen Delivery Oxygen Flow Rate 04/24/24 09:45 04/24/24 10:00 04/24/24 10:15 Temperature Pulse Rate 70 60 89 Respiratory Rate Blood Pressure 130/52 L 122/50 L 124/51 L Pulse Oximetry Oxygen Delivery Oxygen Flow Rate 04/24/24 10:30 04/24/24 10:45 04/24/24 10:57 Temperature Pulse Rate 65 74 132 H Respiratory Rate Blood Pressure 126/53 L 147/53 H Pulse Oximetry Oxygen Delivery Oxygen Flow Rate 04/24/24 11:00 04/24/24 11:15 04/24/24 11:45 Temperature Pulse Rate 104 H 66 77 Respiratory Rate Blood Pressure 139/62 148/51 H 115/48 L Pulse Oximetry Oxygen Delivery Oxygen Flow Rate 04/24/24 12:00 04/24/24 12:00 04/24/24 12:15 Temperature Pulse Rate 62 104 H 63 Respiratory Rate Blood Pressure 131/41 L 119/48 L Pulse Oximetry Oxygen Delivery Oxygen Flow Rate 04/24/24 12:30 04/24/24 12:45 04/24/24 12:54 Temperature Pulse Rate 107 H 68 58 L Respiratory Rate Blood Pressure 134/43 L 116/46 L 131/50 L Pulse Oximetry Oxygen Delivery Oxygen Flow Rate 04/24/24 13:12 04/24/24 13:55 04/24/24 15:10 Temperature 36.8 C 36.7 C Pulse Rate 92 124 H 110 H Respiratory Rate 22 H 28 H 24 H Blood Pressure 141/55 H 147/59 H Pulse Oximetry 100 94 Oxygen Delivery Oxygen Flow Rate 04/24/24 15:18 04/24/24 16:00 04/24/24 18:28 Temperature 36.9 C Pulse Rate 118 H 107 H 112 H Respiratory Rate 23 H 24 H Blood Pressure 128/65 Pulse Oximetry 93 Oxygen Delivery Oxygen Flow Rate 04/24/24 21:10 04/24/24 21:12 04/24/24 21:20 Temperature Pulse Rate 110 H 118 H 110 H Respiratory Rate 23 H 21 H Blood Pressure Pulse Oximetry Oxygen Delivery Oxygen Flow Rate 04/24/24 21:30 04/24/24 21:40 04/24/24 22:00 Temperature Pulse Rate Respiratory Rate Blood Pressure Pulse Oximetry 88 L 93 93 Oxygen Delivery Nasal Cannula Nasal Cannula Nasal Cannula Oxygen Flow Rate 2 2.5 2 04/24/24 22:00 04/24/24 22:00 04/25/24 00:00 Temperature 36.6 C Pulse Rate 118 H 95 98 Respiratory Rate 18 Blood Pressure 114/67 Pulse Oximetry 100 Oxygen Delivery Oxygen Flow Rate 04/25/24 02:22 04/25/24 02:27 04/25/24 04:00 Temperature Pulse Rate 95 97 101 H Respiratory Rate 20 20 Blood Pressure Pulse Oximetry Oxygen Delivery Oxygen Flow Rate 04/25/24 06:00 Temperature 36.4 C L Pulse Rate 61 Respiratory Rate 18 Blood Pressure 125/70 Pulse Oximetry 100 Oxygen Delivery Oxygen Flow Rate Intake/Output Intake/Output: Intake & Output 04/22/24 04/23/24 04/24/24 04/25/24 23:59 23:59 23:59 23:59 Intake Total 2853 1338 951 540 Output Total 1500 0 2012 Balance 1353 1338 -1061 540 Meds/Results Medications: Active Medications Generic Name Dose Route Start Last Admin Trade Name Freq PRN Reason Stop Dose Admin Acetaminophen 650 mg 04/19/24 08:46 04/24/24 15:57 Acetaminophen 650 Mg Suppository RECTAL 650 mg Q6H PRN Administration Mild Pain (1-3) or Fever Allopurinol 100 mg/ 400 mg 04/19/24 21:00 04/24/24 21:13 Allopurinol 300 mg PO 400 mg HS LOKESH Administration Atorvastatin Calcium 20 mg 04/19/24 21:00 04/24/24 21:13 Atorvastatin 20 Mg Tablet FEED TUBE 20 mg HS LOKESH Administration Dextrose 12.5 gm 04/19/24 14:29 Dextrose 50% 25 Gm/50 Ml Syringe IV PUSH PRN PRN Hypoglycemia Protocol Diltiazem HCl 90 mg 04/22/24 14:00 04/25/24 06:18 Diltiazem Hcl 30 Mg Tablet FEED TUBE 90 mg Q8HR LOKESH Administration Doxazosin Mesylate 1 mg 04/20/24 09:00 04/24/24 10:57 Doxazosin Mesylate 1 Mg Tablet FEED TUBE 1 mg DAILY LOKESH Administration Folic Acid 1 mg 04/20/24 09:00 04/24/24 10:57 Folic Acid 1 Mg Tablet FEED TUBE 1 mg DAILY LOKESH Administration Furosemide 80 mg 04/19/24 17:00 04/24/24 17:01 Furosemide 80 Mg Tablet FEED TUBE 80 mg BID LOKESH Administration Glucagon 1 mg 04/19/24 14:29 Glucagon For Inj 1 Mg Vial IM PRN PRN Hypoglycemia Protocol Glucose 15 gm 04/19/24 14:29 Glucose Oral Gel 15 Gm Of Glucse In 37.5 Gm Tube PO PRN PRN Hypoglycemia Protocol Heparin Sodium (Porcine) 5,000 units 04/23/24 21:00 04/24/24 21:12 Heparin Sodium 5,000 Units/Ml Vial SUB-Q 5,000 units Q12HR LOKESH Administration Hydralazine HCl 10 mg 04/19/24 14:20 Hydralazine Hcl 20 Mg/Ml Vial IV PUSH Q8H PRN Blood Pressure - High Meropenem 500 mg in 100 mls @ 200 mls/hr 04/19/24 16:00 04/24/24 16:30 IVPB 200 mls/hr Q24H LOKESH Administration Azithromycin 500 mg in 250 mls @ 250 mls/hr 04/19/24 12:00 04/24/24 14:46 Zithromax IVPB Infused Q24H LOKESH Infusion Dextrose 1,000 mls @ 100 mls/hr 04/19/24 14:29 Dextrose 5% 1,000 Ml IVPB PRN PRN Hypoglycemia Protocol Insulin Aspart 2 - 5 units 04/20/24 12:00 04/25/24 06:39 Insulin Aspart (*Bkc) 100 Units/Ml SUB-Q Not Given Q6HR LOKESH Protocol Lansoprazole 30 mg 04/19/24 21:00 04/24/24 21:12 Lansoprazole Odt 30 Mg Tab.Rap.Dr FEED TUBE 30 mg Q12HR LOKESH Administration Levalbuterol HCl 1.25 mg 04/24/24 14:00 04/25/24 02:22 Levalbuterol Neb 1.25 Mg/3 Ml INHALATION 1.25 mg Q6HRT LOKESH Administration Levetiracetam 500 mg 04/19/24 21:00 04/24/24 21:12 Levetiracetam Oral Caitlyn 500 Mg/5 Ml Udc FEED TUBE 500 mg Q12HR LOKESH Administration Metoprolol Tartrate 25 mg 04/23/24 10:45 04/24/24 21:12 Metoprolol Tartrate 25 Mg Tablet FEED TUBE 25 mg Q12HR LOKESH Administration Ondansetron HCl 4 mg 04/19/24 08:40 Ondansetron Inj 4 Mg/2 Ml Vial IV PUSH Q6H PRN Nausea And Vomiting Pantoprazole Sodium 40 mg 04/19/24 09:25 04/24/24 13:46 Pantoprazole Sodium Iv 40 Mg Vial IV PUSH 40 mg QAM LOKESH Administration Perflutren Lipid Microsphere 0 ml 04/24/24 08:32 Perflutren Lipid Microspheres 1.5 Ml Vial Diluted To 10 Ml Total Volume IV PUSH 04/27/24 08:32 ONCE PRN adequate visualization Protocol Polyethylene Glycol 17 gm 04/19/24 14:20 Polyethylene Glycol 3350 17 Gm Powd.Pack PO QAM PRN Constipation Ropinirole HCl 0.5 mg 04/20/24 09:00 04/24/24 13:46 Ropinirole Hcl 0.5 Mg Tablet FEED TUBE 0.5 mg [email or web address] LOKESH Administration Vancomycin HCl 1 each 04/19/24 17:35 Vancomycin For Hemodialysis IVPB PRN PRN Vancomycin Protocol Radiology Results: ITS Impressions Head CT 04/18/24 14:30 IMPRESSION: Cerebral atherosclerosis and chronic small vessel ischemic changes of the cerebral white matter 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 Labs Labs: Laboratory Results - last 24 hr 04/21/24 04/24/24 04/24/24 07:07 13:46 17:21 WBC RBC Hgb Hct MCV MCH MCHC RDW Plt Count MPV Immature Gran % (Auto) Neut % (Auto) Lymph % (Auto) [place] % (Auto) Eos % (Auto) Baso % (Auto) Lymph # (Auto) [place] # (Auto) Eos # (Auto) Baso # (Auto) Abs Immat Gran (auto) Absolute Neuts (auto) Absolute Nucleated RBC Nucleated RBC % Sodium Potassium Chloride Carbon Dioxide Anion Gap BUN Creatinine Estim Creat Clear Calc Estimated GFR Glucose POC Capillary Glucose 173 H 176 H Calcium Phosphorus Magnesium Total Bilirubin AST ALT Alkaline Phosphatase Total Protein Albumin Enhanced Crossmatch See Detail 04/25/24 04/25/24 00:39 06:15 WBC 8.6 RBC 2.83 L Hgb 8.2 L Hct 26.9 L MCV 95.1 MCH 29.0 MCHC 30.5 L RDW 16.2 H Plt Count 304 MPV 10.3 Immature Gran % (Auto) 1.5 H Neut % (Auto) 79.8 H Lymph % (Auto) 11.2 L [place] % (Auto) 5.5 Eos % (Auto) 1.6 Baso % (Auto) 0.4 Lymph # (Auto) 0.96 [place] # (Auto) 0.5 Eos # (Auto) 0.1 Baso # (Auto) 0.0 Abs Immat Gran (auto) 0.13 H Absolute Neuts (auto) 6.8 H Absolute Nucleated RBC 0.030 H Nucleated RBC % 0.4 H Sodium 139 Potassium 4.3 Chloride 96 L Carbon Dioxide 39 H Anion Gap 4 BUN 46 H D Creatinine 2.90 H Estim Creat Clear Calc 13 Estimated GFR 26 L Glucose 175 H POC Capillary Glucose 185 H Calcium 9.0 Phosphorus 2.2 L Magnesium 2.1 Total Bilirubin 0.7 AST 74 H ALT 74 H Alkaline Phosphatase 156 H Total Protein 7.0 Albumin 3.4 L Enhanced Crossmatch Imaging Radiologist's impression: ECHO was done and was read. LVEF 55-60% , mild to moderate AI, smal pericarial effusion, no valvular vegetations
[2024-04-25] MEDS: FOLIC ACID 1 MG TABLET FEED TUBE (09:00)
[2024-04-25] MEDS: PANTOPRAZOLE SODIUM IV 40 MG VIAL IV PUSH (09:00)
[2024-04-25] MEDS: METOPROLOL TARTRATE 25 MG TABLET FEED TUBE ×2 (09:00→20:44)
[2024-04-25] MEDS: levETIRAcetam ORAL SOL 500 MG/5 ML UDC FEED TUBE ×2 (09:00→20:44)
[2024-04-25] MEDS: FUROSEMIDE 80 MG TABLET FEED TUBE ×2 (09:00→16:39)
[2024-04-25] MEDS: DOXAZOSIN MESYLATE 1 MG TABLET FEED TUBE (09:00)
[2024-04-25] MEDS: LANSOPRAZOLE ODT 30 MG TAB.RAP.DR FEED TUBE ×2 (09:00→20:44)
[2024-04-25] MEDS: HEPARIN SODIUM 5,000 UNITS/ML VIAL 5000 UNITS SUB-Q (11:38)
[2024-04-25] MEDS: AZITHROMYCIN 500 MG/NS 250 ML 500 MG/250 ML BAG 250 MG IVPB (11:52)
[2024-04-25 11:56] LABS: Glucose Point of Care 200 mg/dl (65-105)
--- NOTE | 2024-04-25 14:17 | PM.PNNEP ---
Progress Note: A&P Assessment and Plan (1) Aspiration pneumonia: Qualifiers: Aspiration pneumonia type: unspecified Laterality: bilateral Lung location: lower lobe of lung Qualified Code(s): J69.0 - Pneumonitis due to inhalation of food and vomit Code(s): J69.0 - Pneumonitis due to inhalation of food and vomit Status: Acute Assessment and Plan: The patient has a G-tube. He does not swallow. Patient has aspiration pneumonia. posterior pharyngeal secretions reduced. Breathing okay. Does not seem short of Breath. (2) End stage renal disease: Code(s): N18.6 - End stage renal disease Status: Chronic Assessment and Plan: The patient gets dialysis 3 times a week on Tuesdays and Saturdays. Patient is due for dialysis Friday Patient looks comfortable right now. Electrolytes look okay Volume status looks good. Will remove little bit of fluid dialysis His BUN is better, (3) Hypertension: Code(s): I10 - Essential (primary) hypertension Status: Chronic Assessment and Plan: Blood pressure is getting better Patient is on metoprolol, diltiazem, furosemide, and has a p.r.n. for hydralazine. heart rate and blood pressure much better (4) Anemia: Code(s): D64.9 - Anemia, unspecified Status: Chronic Assessment and Plan: Hemoglobin dropped the other day. He received transfusion. Hemoglobin up to 8.8 today. He will get another dose of the project today (5) History of atrial fibrillation: Code(s): Z86.79 - Personal history of other diseases of the circulatory system Status: Acute Assessment and Plan: Patient has a history of AFib. Currently he is in sinus rhythm. Heart rate is better (6) Dementia: Code(s): F03.90 - Unspecified dementia, unspecified severity, without behavioral disturbance, psychotic disturbance, mood disturbance, and anxiety Status: Chronic Assessment and Plan: The patient looks like he is at baseline Subjective Date/time seen: 04/25/24 14:17 Interval history: patient awake. Much less intense posterior pharyngeal secretions regards examiner but does not interact Exam Narrative: WDWN non communicative in NAD skin no rash or subQ nodules head ncat lungs coarse (but less so) upper airway noise cor reg no rub or gallop abd BS+ nontender and soft ext no edema Objective Data Vital Signs Vital Signs: Vital Signs - 24 hr 04/24/24 15:10 04/24/24 15:18 04/24/24 16:00 Temperature Pulse Rate 110 H 118 H 107 H Respiratory Rate 24 H 23 H Blood Pressure Pulse Oximetry Oxygen Delivery Oxygen Flow Rate Fraction of Inspired Oxygen 04/24/24 18:28 04/24/24 21:10 04/24/24 21:12 Temperature 98.5 F Pulse Rate 112 H 110 H 118 H Respiratory Rate 24 H 23 H Blood Pressure 128/65 Pulse Oximetry 93 Oxygen Delivery Oxygen Flow Rate Fraction of Inspired Oxygen 04/24/24 21:20 04/24/24 21:30 04/24/24 21:40 Temperature Pulse Rate 110 H Respiratory Rate 21 H Blood Pressure Pulse Oximetry 88 L 93 Oxygen Delivery Nasal Cannula Nasal Cannula Oxygen Flow Rate 2 2.5 Fraction of Inspired Oxygen 04/24/24 22:00 04/24/24 22:00 04/24/24 22:00 Temperature 97.8 F Pulse Rate 118 H 95 Respiratory Rate 18 Blood Pressure 114/67 Pulse Oximetry 93 100 Oxygen Delivery Nasal Cannula Oxygen Flow Rate 2 Fraction of Inspired Oxygen 04/25/24 00:00 04/25/24 02:22 04/25/24 02:27 Temperature Pulse Rate 98 95 97 Respiratory Rate 20 20 Blood Pressure Pulse Oximetry Oxygen Delivery Oxygen Flow Rate Fraction of Inspired Oxygen 04/25/24 04:00 04/25/24 06:00 04/25/24 08:00 Temperature 97.5 F L Pulse Rate 101 H 61 Respiratory Rate 18 Blood Pressure 125/70 Pulse Oximetry 100 Oxygen Delivery Room Air Oxygen Flow Rate Fraction of Inspired Oxygen 04/25/24 08:00 04/25/24 09:00 04/25/24 09:00 Temperature Pulse Rate 93 98 Respiratory Rate 20 Blood Pressure Pulse Oximetry 99 Oxygen Delivery Nasal Cannula Oxygen Flow Rate 3 Fraction of Inspired Oxygen 04/25/24 09:00 04/25/24 14:06 04/25/24 14:06 Temperature Pulse Rate 74 102 H Respiratory Rate 24 H Blood Pressure Pulse Oximetry 94 Oxygen Delivery Room Air Oxygen Flow Rate Fraction of Inspired Oxygen 04/25/24 14:13 Temperature Pulse Rate 112 H Respiratory Rate 24 H Blood Pressure Pulse Oximetry Oxygen Delivery Oxygen Flow Rate Fraction of Inspired Oxygen Intake/Output Intake/Output: Intake & Output 04/22/24 04/23/24 04/24/2404/25/24 23:59 23:59 23:59 23:59 Intake Total 7343 1331 1051 540 Output Total 1500 0 2011 Balance 1353 1338 -801 540 Meds/Results Medications: Active Medications Generic Name Dose Route Start Last Admin Trade Name Freq PRN Reason Stop Dose Admin Acetaminophen 650 mg 04/19/24 08:46 04/24/24 15:57 Acetaminophen 650 Mg Suppository RECTAL 650 mg Q6H PRN Administration Mild Pain (1-3) or Fever Allopurinol 100 mg/ 400 mg 04/19/24 21:00 04/24/24 21:13 Allopurinol 300 mg PO 400 mg HS LOKESH Administration Amiodarone HCl 200 mg 04/25/24 17:00 Amiodarone Hcl 200 Mg Tablet PO BID LOKESH Atorvastatin Calcium 20 mg 04/19/24 21:00 04/24/24 21:13 Atorvastatin 20 Mg Tablet FEED TUBE 20 mg HS LOKESH Administration Dextrose 12.5 gm 04/19/24 14:29 Dextrose 50% 25 Gm/50 Ml Syringe IV PUSH PRN PRN Hypoglycemia Protocol Diltiazem HCl 60 mg 04/25/24 17:00 Diltiazem Hcl 60 Mg Tablet PO BID LOKESH Doxazosin Mesylate 1 mg 04/20/24 09:00 04/25/24 09:00 Doxazosin Mesylate 1 Mg Tablet FEED TUBE 1 mg DAILY LOKESH Administration Folic Acid 1 mg 04/20/24 09:00 04/25/24 09:00 Folic Acid 1 Mg Tablet FEED TUBE 1 mg DAILY LOKESH Administration Furosemide 80 mg 04/19/24 17:00 04/25/24 09:00 Furosemide 80 Mg Tablet FEED TUBE 80 mg BID LOKESH Administration Glucagon 1 mg 04/19/24 14:29 Glucagon For Inj 1 Mg Vial IM PRN PRN Hypoglycemia Protocol Glucose 15 gm 04/19/24 14:29 Glucose Oral Gel 15 Gm Of Glucse In 37.5 Gm Tube PO PRN PRN Hypoglycemia Protocol Heparin Sodium (Porcine) 5,000 units 04/23/24 21:00 04/25/24 11:38 Heparin Sodium 5,000 Units/Ml Vial SUB-Q 5,000 units Q12HR LOKESH Administration Hydralazine HCl 10 mg 04/19/24 14:20 Hydralazine Hcl 20 Mg/Ml Vial IV PUSH Q8H PRN Blood Pressure - High Meropenem 500 mg in 100 mls @ 200 mls/hr 04/19/24 16:00 04/24/24 17:00 IVPB Infused Q24H LOKESH Infusion Azithromycin 500 mg in 250 mls @ 250 mls/hr 04/19/24 12:00 04/25/24 11:52 Zithromax IVPB 250 mls/hr Q24H LOKESH Administration Dextrose 1,000 mls @ 100 mls/hr 04/19/24 14:29 Dextrose 5% 1,000 Ml IVPB PRN PRN Hypoglycemia Protocol Insulin Aspart 2 - 5 units 04/20/24 12:00 04/25/24 11:56 Insulin Aspart (*Bkc) 100 Units/Ml SUB-Q Not Given Q6HR LOKESH Protocol Lansoprazole 30 mg 04/19/24 21:00 04/25/24 09:00 Lansoprazole Odt 30 Mg Tab.Rap.Dr FEED TUBE 30 mg Q12HR LOKESH Administration Levalbuterol HCl 1.25 mg 04/24/24 14:00 04/25/24 14:06 Levalbuterol Neb 1.25 Mg/3 Ml INHALATION 1.25 mg Q6HRT LOKESH Administration Levetiracetam 500 mg 04/19/24 21:00 04/25/24 09:00 Levetiracetam Oral Caitlyn 500 Mg/5 Ml Udc FEED TUBE 500 mg Q12HR LOKESH Administration Metoprolol Tartrate 25 mg 04/23/24 10:45 04/25/24 09:00 Metoprolol Tartrate 25 Mg Tablet FEED TUBE 25 mg Q12HR LOKESH Administration Ondansetron HCl 4 mg 04/19/24 08:40 Ondansetron Inj 4 Mg/2 Ml Vial IV PUSH Q6H PRN Nausea And Vomiting Pantoprazole Sodium 40 mg 04/19/24 09:25 04/25/24 09:00 Pantoprazole Sodium Iv 40 Mg Vial IV PUSH 40 mg QAM LOKESH Administration Perflutren Lipid Microsphere 0 ml 04/24/24 08:32 Perflutren Lipid Microspheres 1.5 Ml Vial Diluted To 10 Ml Total Volume IV PUSH 04/27/24 08:32 ONCE PRN adequate visualization Protocol Polyethylene Glycol 17 gm 04/19/24 14:20 Polyethylene Glycol 3350 17 Gm Powd.Pack PO QAM PRN Constipation Ropinirole HCl 0.5 mg 04/20/24 09:00 04/24/24 13:46 Ropinirole Hcl 0.5 Mg Tablet FEED TUBE 0.5 mg [email or web address] LOKESH Administration Vancomycin HCl 1 each 04/19/24 17:35 Vancomycin For Hemodialysis IVPB PRN PRN Vancomycin Protocol Radiology Results: ITS Impressions Head CT 04/18/24 14:30 IMPRESSION: Cerebral atherosclerosis and chronic small vessel ischemic changes of the cerebral white matter 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 Labs Labs: Laboratory Results - last 24 hr 04/21/24 04/24/24 04/25/24 07:07 17:21 00:39 WBC RBC Hgb Hct MCV MCH MCHC RDW Plt Count MPV Immature Gran % (Auto) Neut % (Auto) Lymph % (Auto) [place] % (Auto) Eos % (Auto) Baso % (Auto) Lymph # (Auto) [place] # (Auto) Eos # (Auto) Baso # (Auto) Abs Immat Gran (auto) Absolute Neuts (auto) Absolute Nucleated RBC Nucleated RBC % Sodium Potassium Chloride Carbon Dioxide Anion Gap BUN Creatinine Estim Creat Clear Calc Estimated GFR Glucose POC Capillary Glucose 176 H 185 H Calcium Phosphorus Magnesium Total Bilirubin AST ALT Alkaline Phosphatase Total Protein Albumin Enhanced Crossmatch See Detail 04/25/24 04/25/24 06:15 11:53 WBC 8.6 RBC 2.83 L Hgb 8.2 L Hct 26.9 L MCV 95.1 MCH 29.0 MCHC 30.5 L RDW 16.2 H Plt Count 304 MPV 10.3 Immature Gran % (Auto) 1.5 H Neut % (Auto) 79.8 H Lymph % (Auto) 11.2 L [place] % (Auto) 5.5 Eos % (Auto) 1.6 Baso % (Auto) 0.4 Lymph # (Auto) 0.96 [place] # (Auto) 0.5 Eos # (Auto) 0.1 Baso # (Auto) 0.0 Abs Immat Gran (auto) 0.13 H Absolute Neuts (auto) 6.8 H Absolute Nucleated RBC 0.030 H Nucleated RBC % 0.4 H Sodium 139 Potassium 4.3 Chloride 96 L Carbon Dioxide 39 H Anion Gap 4 BUN 46 H D Creatinine 2.90 H Estim Creat Clear Calc 13 Estimated GFR 26 L Glucose 175 H POC Capillary Glucose 200 H Calcium 9.0 Phosphorus 2.2 L Magnesium 2.1 Total Bilirubin 0.7 AST 74 H ALT 74 H Alkaline Phosphatase 156 H Total Protein 7.0 Albumin 3.4 L Enhanced Crossmatch
--- NOTE | 2024-04-25 14:31 | P.PNIM_ITS ---
Progress Note: A&P Assessment and Plan (1) Sepsis: Code(s): A41.9 - Sepsis, unspecified organism Status: Acute Assessment and Plan: Sepsis without septic shock likely secondary to pneumonia vs less likely wound infection. * On admission pt with Tachycardia, leukocytosis, tachypnea, pneumonia on CXR, UA with possible UTI, possible wounds infections. * Initial blood cultures growing Staph Hominis, repeat blood culture NGTD. * Currently on Azithromycin, meropenem and Vancomycin; * Azithromycin discontinued. * We'll consider discontinuing all IV abx in AM and switch to PO before discharge. * MRSA Positive. * Urine culture negative. * Chest x-ray with infiltrates and possible pneumonitis aspiration. * Repeat CXR; Bibasilar pneumonia. (2) Aspiration pneumonia: Qualifiers: Aspiration pneumonia type: unspecified Laterality: bilateral Lung location: lower lobe of lung Qualified Code(s): J69.0 - Pneumonitis due to inhalation of food and vomit Code(s): J69.0 - Pneumonitis due to inhalation of food and vomit Status: Acute Assessment and Plan: Patient with chronic multi lobular lower lobe pneumonitis likely secondary to aspiration from G-tube CXR: Patchy bilateral lower lobe infiltrates, left greater than right, suggesting bilateral pneumonia versus aspiration pneumonitis * Mgt as above. * Continue on meropenem IV, azithromycin. * MRSA positive * Hx of dysphagia and with G-tube * Tube feedings continuing at slower rate. * TF rate decreased with worsening renal function per nephro recommendations. * Continue suctioning as needed. * Continue to follow blood cultures, NGTD. (3) End-stage renal disease on hemodialysis: Code(s): N18.6 - End stage renal disease; Z99.2 - Dependence on renal dialysis Status: Acute Assessment and Plan: * Cr trending up and down 3>>4.2>>2.9 * nephrology following and managing hemo dialysis * TF rate decreased with worsening renal function per animal handler recommendations. * Continue sevelamer carbonate * Avoid nephrotoxic drugs. * Monitor electrolytes and correct as needed. * Meds dosing per renal function. (4) Atrial fibrillation with RVR: Code(s): I48.91 - Unspecified atrial fibrillation Status: Acute Assessment and Plan: Hx of AFib and was in AFib RVR on admission. * Episodes of tachycardia improving. * Started on Amiodarone per cardiology. * Diltiazem dose decreased per Cardiology. * Continue Metoprolol BID. * Continue apixaban * Continue tele monitoring. * Continue to adjust meds as needed. (5) Hypertension: Code(s): I10 - Essential (primary) hypertension Status: Chronic Assessment and Plan: * BP better controlled. * Continue to adjust meds as needed. (6) Dementia: Code(s): F03.90 - Unspecified dementia, unspecified severity, without behavioral disturbance, psychotic disturbance, mood disturbance, and anxiety Status: Chronic Assessment and Plan: Home meds resumed. (7) Dysphagia: Code(s): R13.10 - Dysphagia, unspecified Status: Acute Assessment and Plan: * Continue TF and adjust rate as tolerated. * Seen by dietitian and we'll follow recommendations. * continue to monitor for aspiration and residuals. (8) UTI (urinary tract infection): Code(s): N39.0 - Urinary tract infection, site not specified Status: Acute Assessment and Plan: patient's urine was nitrate and leukocytosis positive history of indwelling catheter for retention however was straight cathed in the ER * Urine culture negative. * No treatment required. (9) Anemia: Code(s): D64.9 - Anemia, unspecified Status: Chronic Assessment and Plan: - Possibly related to ESRD vs/+ acute blood loss from wound vs other bleeding. * hemoglobin improved post 1 unit PRBC's transfusion and stable now >8.5 * Continue to monitor Hgb closely. * Epogen per nephrology. * Monitor for obvious bleeding signs with Eliquis use. (10) Sacral wound: Code(s): S31.000A - Unspecified open wound of lower back and pelvis without penetration into retroperitoneum, initial encounter Status: Acute Assessment and Plan: Patient with multiple pressure open areas on buttocks and unstageable sacral wound. * Seen by wound nurse. * Q 2 Turns * Mepilex on sacrum. * continue IV vancomycin for now. Plan Code status: Full code DVT prophylaxis: Eliquis Stress ulcer prophylaxis: Protonix 40 daily PT/OT notes: patient bedridden Disposition: patient was admitted to the medical unit for further evaluation and treatment sepsis secondary to aspiration pneumonia. Continue hemo-dialysis per nephrology scheduling. Continue IV meropenem, azithromycin and Vancomycin for aspiration PNA. Repeat CXR pending. Nephrology following for CKD dependent on HD. Time Spent With Patient Time with patient: 15 - 25 minutes Subjective Date/time seen: 04/25/24 11:31 Patient non-verbal but awake and alert. Interval history: Patient calm on bedrest and looks to be in no acute distress. Review of Systems Review of Systems: ROS unobtainable: Yes unobtainable due to medical condition and unobtainable due to mental status Exam Narrative: * GENERAL: Alert but non-verbal. No acute distress. * EYES: EOMI. No scleral icterus. PERRLA. * HEENT: Dry mucous membranes. * LUNGS: Coarse and slightly congested. No accessory muscle use. * CARDIOVASCULAR: irregularly irregular . No murmurs. * ABDOMEN: Soft, non tender, and non-distended. G-tube intact upper abdomen. * EXTREMITIES: No edema. Non-tender, Bilateral lower extremity contracture. * SKIN: No rashes or lesions. Skin warm and dry. * NEUROLOGIC: Non-verbal. Jacek LE contracture. * PSYCHIATRIC:Unable to assess due to non-verbal status. Objective Data Vital Signs Vital Signs: Vital Signs - 24 hr 04/24/24 15:10 04/24/24 15:18 04/24/24 16:00 Temperature Pulse Rate 110 H 118 H 107 H Respiratory Rate 24 H 23 H Blood Pressure Pulse Oximetry Oxygen Delivery Oxygen Flow Rate Fraction of Inspired Oxygen 04/24/24 18:28 04/24/24 21:10 04/24/24 21:12 Temperature 98.5 F Pulse Rate 112 H 110 H 118 H Respiratory Rate 24 H 23 H Blood Pressure 128/65 Pulse Oximetry 93 Oxygen Delivery Oxygen Flow Rate Fraction of Inspired Oxygen 04/24/24 21:20 04/24/24 21:30 04/24/24 21:40 Temperature Pulse Rate 110 H Respiratory Rate 21 H Blood Pressure Pulse Oximetry 88 L 93 Oxygen Delivery Nasal Cannula Nasal Cannula Oxygen Flow Rate 2 2.5 Fraction of Inspired Oxygen 04/24/24 22:00 04/24/24 22:00 04/24/24 22:00 Temperature 97.8 F Pulse Rate 118 H 95 Respiratory Rate 18 Blood Pressure 114/67 Pulse Oximetry 93 100 Oxygen Delivery Nasal Cannula Oxygen Flow Rate 2 Fraction of Inspired Oxygen 04/25/24 00:00 04/25/24 02:22 04/25/24 02:27 Temperature Pulse Rate 98 95 97 Respiratory Rate 20 20 Blood Pressure Pulse Oximetry Oxygen Delivery Oxygen Flow Rate Fraction of Inspired Oxygen 04/25/24 04:00 04/25/24 06:00 04/25/24 08:00 Temperature 97.5 F L Pulse Rate 101 H 61 Respiratory Rate 18 Blood Pressure 125/70 Pulse Oximetry 100 Oxygen Delivery Room Air Oxygen Flow Rate Fraction of Inspired Oxygen 04/25/24 08:00 04/25/24 09:00 04/25/24 09:00 Temperature Pulse Rate 93 98 Respiratory Rate 20 Blood Pressure Pulse Oximetry 99 Oxygen Delivery Nasal Cannula Oxygen Flow Rate 3 Fraction of Inspired Oxygen 04/25/24 09:00 04/25/24 14:06 04/25/24 14:06 Temperature Pulse Rate 74 102 H Respiratory Rate 24 H Blood Pressure Pulse Oximetry 94 Oxygen Delivery Room Air Oxygen Flow Rate Fraction of Inspired Oxygen 04/25/24 14:13 Temperature Pulse Rate 112 H Respiratory Rate 24 H Blood Pressure Pulse Oximetry Oxygen Delivery Oxygen Flow Rate Fraction of Inspired Oxygen Intake/Output Intake/Output: Intake & Output 04/22/24 04/23/24 04/24/24 04/25/24 23:59 23:59 23:59 23:59 Intake Total 2853 1338 1051 540 Output Total 1500 0 2011 Balance 1353 1338 -961 540 Meds/Results Medications: Active Medications Generic Name Dose Route Start Last Admin Trade Name Freq PRN Reason Stop Dose Admin Acetaminophen 650 mg 04/19/24 08:46 04/24/24 15:57 Acetaminophen 650 Mg Suppository RECTAL 650 mg Q6H PRN Administration Mild Pain (1-3) or Fever Allopurinol 100 mg/ 400 mg 04/19/24 21:00 04/24/24 21:13 Allopurinol 300 mg PO 400 mg HS LOKESH Administration Amiodarone HCl 200 mg 04/25/24 17:00 Amiodarone Hcl 200 Mg Tablet PO BID LOKESH Atorvastatin Calcium 20 mg 04/19/24 21:00 04/24/24 21:13 Atorvastatin 20 Mg Tablet FEED TUBE 20 mg HS LOKESH Administration Dextrose 12.5 gm 04/19/24 14:29 Dextrose 50% 25 Gm/50 Ml Syringe IV PUSH PRN PRN Hypoglycemia Protocol Diltiazem HCl 60 mg 04/25/24 17:00 Diltiazem Hcl 60 Mg Tablet PO BID LOKESH Doxazosin Mesylate 1 mg 04/20/24 09:00 04/25/24 09:00 Doxazosin Mesylate 1 Mg Tablet FEED TUBE 1 mg DAILY LOKESH Administration Epoetin Bacilio-epbx 20,000 units 04/26/24 07:00 Epoetin Bacilio-Epbx 20,000 Units/Ml Vial SUB-Q 04/26/24 07:01 ONCE ONE Folic Acid 1 mg 04/20/24 09:00 04/25/24 09:00 Folic Acid 1 Mg Tablet FEED TUBE 1 mg DAILY LOKESH Administration Furosemide 80 mg 04/19/24 17:00 04/25/24 09:00 Furosemide 80 Mg Tablet FEED TUBE 80 mg BID LOKESH Administration Glucagon 1 mg 04/19/24 14:29 Glucagon For Inj 1 Mg Vial IM PRN PRN Hypoglycemia Protocol Glucose 15 gm 04/19/24 14:29 Glucose Oral Gel 15 Gm Of Glucse In 37.5 Gm Tube PO PRN PRN Hypoglycemia Protocol Heparin Sodium (Porcine) 5,000 units 04/23/24 21:00 04/25/24 11:38 Heparin Sodium 5,000 Units/Ml Vial SUB-Q 5,000 units Q12HR LOKESH Administration Hydralazine HCl 10 mg 04/19/24 14:20 Hydralazine Hcl 20 Mg/Ml Vial IV PUSH Q8H PRN Blood Pressure - High Meropenem 500 mg in 100 mls @ 200 mls/hr 04/19/24 16:00 04/24/24 17:00 IVPB Infused Q24H LOKESH Infusion Azithromycin 500 mg in 250 mls @ 250 mls/hr 04/19/24 12:00 04/25/24 11:52 Zithromax IVPB 250 mls/hr Q24H LOKESH Administration Dextrose 1,000 mls @ 100 mls/hr 04/19/24 14:29 Dextrose 5% 1,000 Ml IVPB PRN PRN Hypoglycemia Protocol Albumin Human 50 mls @ 999 mls/hr 04/25/24 14:19 Albutein IVPB 04/26/24 14:18 Q10M PRN HYPOTENSION Sodium Chloride 1,000 mls @ 999 mls/hr 04/25/24 14:19 Normal Saline Iv IV CONT 04/25/24 15:19 .Q1H1M ONE Insulin Aspart 2 - 5 units 04/20/24 12:00 04/25/24 11:56 Insulin Aspart (*Bkc) 100 Units/Ml SUB-Q Not Given Q6HR [facility] Protocol Lansoprazole 30 mg 04/19/24 21:00 04/25/24 09:00 Lansoprazole Odt 30 Mg Tab.Rap.Dr FEED TUBE 30 mg Q12HR LOKESH Administration Levalbuterol HCl 1.25 mg 04/24/24 14:00 04/25/24 14:06 Levalbuterol Neb 1.25 Mg/3 Ml INHALATION 1.25 mg Q6HRT LOKESH Administration Levetiracetam 500 mg 04/19/24 21:00 04/25/24 09:00 Levetiracetam Oral Caitlyn 500 Mg/5 Ml Udc FEED TUBE 500 mg Q12HR LOKESH Administration Metoprolol Tartrate 25 mg 04/23/24 10:45 04/25/24 09:00 Metoprolol Tartrate 25 Mg Tablet FEED TUBE 25 mg Q12HR LOKESH Administration Ondansetron HCl 4 mg 04/19/24 08:40 Ondansetron Inj 4 Mg/2 Ml Vial IV PUSH Q6H PRN Nausea And Vomiting Pantoprazole Sodium 40 mg 04/19/24 09:25 04/25/24 09:00 Pantoprazole Sodium Iv 40 Mg Vial IV PUSH 40 mg QAM LOKESH Administration Perflutren Lipid Microsphere 0 ml 04/24/24 08:32 Perflutren Lipid Microspheres 1.5 Ml Vial Diluted To 10 Ml Total Volume IV PUSH 04/27/24 08:32 ONCE PRN adequate visualization Protocol Polyethylene Glycol 17 gm 04/19/24 14:20 Polyethylene Glycol 3350 17 Gm Powd.Pack PO QAM PRN Constipation Ropinirole HCl 0.5 mg 04/20/24 09:00 04/24/24 13:46 Ropinirole Hcl 0.5 Mg Tablet FEED TUBE 0.5 mg [id number] LOKESH Administration Vancomycin HCl 1 each 04/19/24 17:35 Vancomycin For Hemodialysis IVPB PRN PRN Vancomycin Protocol Radiology Results: ITS Impressions Head CT 04/18/24 14:30 IMPRESSION: Cerebral atherosclerosis and chronic small vessel ischemic changes of the cerebral white matter 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 Labs Labs: Laboratory Results - last 24 hr 04/21/24 04/24/24 04/25/24 07:07 17:21 00:39 WBC RBC Hgb Hct MCV MCH MCHC RDW Plt Count MPV Immature Gran % (Auto) Neut % (Auto) Lymph % (Auto) Wallace % (Auto) Eos % (Auto) Baso % (Auto) Lymph # (Auto) Wallace # (Auto) Eos # (Auto) Baso # (Auto) Abs Immat Gran (auto) Absolute Neuts (auto) Absolute Nucleated RBC Nucleated RBC % Sodium Potassium Chloride Carbon Dioxide Anion Gap BUN Creatinine Estim Creat Clear Calc Estimated GFR Glucose POC Capillary Glucose 176 H 185 H Calcium Phosphorus Magnesium Total Bilirubin AST ALT Alkaline Phosphatase Total Protein Albumin Enhanced Crossmatch See Detail 04/25/24 04/25/24 06:15 11:53 WBC 8.6 RBC 2.83 L Hgb 8.2 L Hct 26.9 L MCV 95.1 MCH 29.0 MCHC 30.5 L RDW 16.2 H Plt Count 304 MPV 10.3 Immature Gran % (Auto) 1.5 H Neut % (Auto) 79.8 H Lymph % (Auto) 11.2 L Wallace % (Auto) 5.5 Eos % (Auto) 1.6 Baso % (Auto) 0.4 Lymph # (Auto) 0.96 Wallace # (Auto) 0.5 Eos # (Auto) 0.1 Baso # (Auto) 0.0 Abs Immat Gran (auto) 0.13 H Absolute Neuts (auto) 6.8 H Absolute Nucleated RBC 0.030 H Nucleated RBC % 0.4 H Sodium 139 Potassium 4.3 Chloride 96 L Carbon Dioxide 39 H Anion Gap 4 BUN 46 H D Creatinine 2.90 H Estim Creat Clear Calc 13 Estimated GFR 26 L Glucose 175 H POC Capillary Glucose 200 H Calcium 9.0 Phosphorus 2.2 L Magnesium 2.1 Total Bilirubin 0.7 AST 74 H ALT 74 H Alkaline Phosphatase 156 H Total Protein 7.0 Albumin 3.4 L Enhanced Crossmatch Quality VTE Prophylaxis VTE prophylaxis: mechanical ordered and pharmacologic ordered Hospitalist MIPS Advance Care Plan I have confirmed that the patient's Advanced Care Plan is present, code status is documented, or surrogate decision maker is listed in patient medical record.: Yes Medication Reconciliation I have utilized all available resources to obtain, update and review the patients current medications (includes all prescriptions, OTC, herbals, can nabis, and nutritional supplements).: Yes
[2024-04-25] MEDS: MEROPENEM 500 MG/NS 100 ML 500 MG/100 ML BAG 200 MG IVPB (16:38)
[2024-04-25] MEDS: AMIODARONE HCL 200 MG TABLET PO (16:39)
[2024-04-25] MEDS: dilTIAZem HCL 60 MG TABLET PO (16:39)
[2024-04-25 18:22] LABS: Glucose Point of Care 165 mg/dl (65-105)
[2024-04-25] MEDS: APIXABAN 5 MG TABLET PO (20:43)
[2024-04-25] MEDS: ATORVASTATIN 20 MG TABLET FEED TUBE (20:44)
--- OUTSIDE RECORDS SUMMARY | 2024-04-25 21:18 | XMS_ITS | Encounter Summary ---
Author Organization [facility] Address [address] [place] [address] Care Team Providers Care Housekeeping Supervisor Name Role Phone Kwame Berg MD Primary Care Provider [phone] Dylon Agudelo MD Unavailable [phone] Reason for Referral * (Routine) - Closed Specialty Diagnoses / Procedures Referred By Contac t Referred To Contact Procedures [place] [id number] [facility] [address] [address] Referral ID Status Reason Start Date Expiration Date Visits Re quested Visits Authorized [id number] Closed 03/31/2023 03/30/2024 1 1 ICAL THERAPY TECHNICIAN * Radiology Services (Routine) - Closed Specialty Diagnoses / Procedures Referred By Contac t Referred To Contact Diagnoses Encounter regarding vascular access for dialysis for end-stage renal disease (HCC) Procedures IR ANG[place] [id number] [facility] [address] [place] [id number] Referral ID Status Reason Start Date Expiration Date Visits Re quested Visits Authorized [id number] Closed 03/27/2023 03/26/2024 1 1 ICAL THERAPY TECHNICIAN Reason for Visit * Radiology Services (Routine) - Closed Specialty Diagnoses / Procedures Referred By Contac t Referred To Contact Diagnoses ESRD (end stage renal disease) (HCC) Procedures IR [place] [address] [place] [id number] Referral ID Status Reason Start Date Expiration Date Visits Re quested Visits Authorized [id number] Closed 11/18/2022 11/18/2023 1 1 Encounter Details Date Type Department Care Team (Latest Contact Info) Description 03/31/2023 11:24 AM PHYSICAL THERAPY TECHNICIAN - 03/31/2023 11:59 PM PHYSICAL THERAPY TECHNICIAN Hospital Encounter [facility] Vascular Services [address] [place] [address] Tyshawn Heller MD [address] [place] [address] [place] [address] [place] [address] [place] [address] [facility] [address] [place] [address] Discharge Disposition: Home or Self Care Social History Tobacco Use Types Packs/Day Years Used Date Smoking Tobacco: Former Cigarettes Q uit: 10/12/2012 Smokeless Tobacco: Never Alcohol Use Standard Drinks/Week Comments Not Currently 0 (1 standard drink = 0.6 oz pur e alcohol) Sex and Gender Information Value Date Recorded Sex Assigned at Not on file Gender Identity Not on file Sexual Orientation Not on file documented as of this encounter Last Filed Vital Signs Vital Sign Reading Time Taken Comments Blood Pressure 121/72 03/31/2023 12:45 PM PHYSICAL THERAPY TECHNICIAN Pulse 61 03/31/2023 12:45 PM PHYSICAL THERAPY TECHNICIAN Temperature 37.6 ??C (99.7 ??F) 03/31/2023 11:[address] Respiratory Rate 15 03/31/2023 12:45 PM PHYSICAL THERAPY TECHNICIAN Oxygen Saturation 96% 03/31/2023 12:45 PM PHYSICAL THERAPY TECHNICIAN Inhaled Oxygen Concentration - - Weight 55.8 kg (123 lb) 03/31/2023 11:49 AM PHYSICAL THERAPY TECHNICIAN Height 172.7 cm (5' 8) 03/31/2023 11:49 AM PHYSICAL THERAPY TECHNICIAN Body Mass Index 18.7 03/31/2023 11:49 AM PHYSICAL THERAPY TECHNICIAN documented in this encounter Functional Status Functional Status Response Date of Assess ment Is person deaf or have serious hearing difficult y? No 01/17/2020 Is person blind or have serious difficulty seein g? No 01/17/2020 Does person have serious dif ficulty walking/climbing stairs? Yes 01/17/2020 Does person have difficulty dressing/bathing? Ye s 01/17/2020 Does person have difficulty doing errands alone? Yes 01/17/2020 Cognitive Status Response Date of Assessm ent Does person have difficulty concentrating/remembering/making decisions? Yes 01/17/2020 documented as of this encounter Medications at Time of Discharge Medication Sig Dispensed Refills Start Date End Date acetaminophen (Tylenol) 500 MG tablet Take 1 (one) tablet by mouth every 6 hours as needed for Fever or Pain Maximum allowable Acetaminophen amount = 4 Grams (4000 mg) / 24 hours. 0 12/13/2022 allopurinol (ZYLOPRIM) 100 MG tablet Take 1 (one) tablet by mouth once daily 05/29/2019 apixaban (ELIQUIS) 2.5 MG tablet Take 1 tablet by mouth 2 times daily 60 tablet 01/19/2020 atorvastatin (LIPITOR) 20 MG tablet Take 1 (one) tablet by mouth at bedtime 0 01/19/2019 calcium carbonate (Tums) 500 MG chew tablet Take 1 (one) tablet by mouth daily with food dilTIAZem (CARDIZEM) 30 MG tablet Take 1 (one) tablet by mouth 3 times daily 08/24/2021 folic acid (Folvite) 1 MG tablet Take 1 (one) tablet by mouth once daily 06/04/2022 furosemide (LASIX) 80 MG tablet Take 1 (one) tablet by mouth 2 times daily 05/11/2019 levETIRAcetam (KEPPRA) 100 MG/ML oral solution Take 5 mL by mouth 2 times daily 07/26/2021 rOPINIRole (REQUIP) 0.5 MG tablet Take 1 (one) tablet by mouth Three times a week 06/23/2019 sevelamer carbonate (RENVELA) 800 MG Take 1 (one) tablet by mouth 3 times daily with meals tamsulosin (FLOMAX) 0.4 MG capsule Take 1 (one) capsule by mouth at bedtime At the same time every day after a meal. polyethylene glycol 3350 (MIRALAX) 17 g packet Take 17 (seventeen) g by mouth once daily as needed 08/09/2019 08/04/2023 documented as of this encounter Progress Notes * Vee Esqueda RN - 03/31/2023 11:52 AM CST Pt has left upper arm access, pulsatile throughout. ICAL THERAPY TECHNICIAN documented in this encounter H&P Notes * Mario Iyer MD - 03/31/2023 1:00 PM CST Chief Complaint ESRD History and Physical Jules Mitchell is a 77 year old male. Patient has a left arm access being used for dialysis. 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 Patient presents with increased pulsatility. Past Medical History: Diagnosis Date ??? Cancer (CMS/[facility]) 1999 pt unsure of type of cancer- ??? Chronic kidney disease ??? Dementia (CMS/HCC) ??? ESRD (end stage renal disease) ([facility]/HCC) [facility] as of 11/18/2022 ??? High blood pressure ??? Pure hypercholesterolemia ??? Stroke ([facility]/HCC) 2004 per pt Past Surgical History: Procedure Laterality Date ??? A-V SHUNT CREATION Right 03/15/2020 Right; RIGHT ARM DIALYSIS GRAFT ??? A-V SHUNT CREATION Left 10/21/2022 Left; left arm dialysis fistula transposition with graft. ??? HIP ARTHROPLASTY, TOTAL Left 01/12/2020 LEFT POSTERIOR ARTHROPLASTY TOTAL HIP ??? HIP ARTHROPLASTY, TOTAL 01/12/2020 LEFT POSTERIOR ARTHROPLASTY TOTAL HIP ??? INSERTION DIALYSIS CATHETER Right 04/2019 r chest tunneled cath ??? OTHER SURGERY Testicular surgery per nephew but not positive? VASCULAR PROCEDURE/SURGERY 10/20/2019 RIGHT UPPER ARM ARTERIOVENOUS FISTULA ??? VASCULAR PROCEDURE/SURGERY Left 06/24/2022 Left; LEFT UPPER ARM ARTERIO-VENOUS (AV) FISTULA No Known Allergies Current Outpatient Medications on File Prior to Visit Medication Sig Dispense Refill ??? acetaminophen (Tylenol) 500 MG tablet Take 1 (one) tablet by mouth every 6 hours as needed for Fever or Pain Maximum allowable Acetaminophen amount = 4 Grams (4000 mg) / 24 hours. 0 ??? albuterol (Proventil;Ventolin) (5 MG/ML) 0.5% nebulizer solution albuterol sulfate concentrate 5 mg/mL(0.5 %) solution for nebulization (Patient not taking: Reported on 12/13/2022) ??? allopurinol (ZYLOPRIM) 100 MG tablet Take 1 (one) tablet by mouth once daily ??? apixaban (ELIQUIS) 2.5 MG tablet Take 1 tablet by mouth 2 times daily 60 tablet 0 ??? atorvastatin (LIPITOR) 20 MG tablet Take 1 (one) tablet by mouth at bedtime 0 ??? calcium carbonate (Tums) 500 MG chew tablet Take 1 (one) tablet by mouth daily with food (Patient not taking: Reported on 12/13/2022) ??? dilTIAZem (CARDIZEM) 30 MG tablet Take 1 (one) tablet by mouth 3 times daily ??? folic acid (Folvite) 1 MG tablet Take 1 (one) tablet by mouth once daily ??? furosemide (LASIX) 80 MG tablet Take 1 (one) tablet by mouth 2 times daily ??? HYDROcodone-acetaminophen ([place]) 7.5-325 MG tablet Take 1 (one) tablet by mouth every 6 hours as needed for Pain (Patient not taking: Reported on 11/18/2022) 30 tablet 0 ??? lanthanum (Fosrenol) 500 MG chew tablet 1 (one) tablet 2 times daily (Patient not taking: Reported on 10/18/2022) ??? levETIRAcetam (KEPPRA) 100 MG/ML oral solution Take 5 mL by mouth 2 times daily ??? lidocaine-prilocaine (EMLA) 2.5-2.5 % cream (Patient not taking: Reported on 10/18/2022) ??? polyethylene glycol 3350 (MIRALAX) 17 g packet Take 17 (seventeen) g by mouth once daily as needed ??? rOPINIRole (REQUIP) 0.5 MG tablet Take 1 (one) tablet by mouth Three times a week ??? sevelamer carbonate (RENVELA) 800 MG Take 1 (one) tablet by mouth 3 times daily with meals ??? tamsulosin (FLOMAX) 0.4 MG capsule Take 1 (one) capsule by mouth at bedtime At the same time every day after a meal. No current facility-administered medications on file prior to visit. Social History Tobacco Use ??? Smoking status: Former Types: Cigarettes Quit date: 10/12/2012 Years since quittin.4 ??? Smokeless tobacco: Never Vaping Use ??? Vaping Use: Never used Substance Use Topics ??? Alcohol use: Not Currently ??? Drug use: Never Family History Problem Relation Name Age of Onset ??? Hypertension Mother ??? Hypertension Sister ??? Diabetes - Type 2 Sister Physical Examination Constitutional: Vital signs are stable and the patient is no acute distress. Eyes: Reveal no icterus. Neck: Neck is supple without JVD or bruit. Respiratory: Lungs are clear. Cardiovascular: Regular rate and rhythm. GI: Abdomen is soft and non tender. Musculoskeletal: Extremities are warm and well perfused. Neurologic: Intact. SEDATION PLAN: minimal ASA? Physical Status Classification: 3 (A patient with severe systemic disease) Patient airway and condition has been evaluated immediately prior to sedation and/or analgesia: Yes. I have discussed with the patient all options, including risks and benefits. The patient wishes to proceed with fistulogram. Review of Systems General: No fatigue or weight loss Eyes: No vision changes or pain Neuro: No mental status changes or dizziness Cardiovascular: No chest pain or palpitations Pulmonary: No shortness of breath or wheezing. GI: No abdominal pain, no nausea. Musculoskeletal: No muscle pain or joint pain Skin: No rashes or texture changes Hematologic: No easy bruising or bleeding Rectal: No rectal bleeding or pain Impression/Plan: ESRD. Will plan for fistulogram. I have discussed the risks, benefits and alternatives with the patient who understands and wishes to proceed. ICAL THERAPY TECHNICIAN * aMrio Iyer MD - 03/31/2023 11:36 AM CST This patient? s prior H&P was reviewed, the patient was examined and no change has occurred in the patient's condition since the prior H&P was completed. Mario Iyer MD ICAL THERAPY TECHNICIAN documented in this encounter Procedure Notes * Mario Iyer MD - 03/31/2023 1:05 PM CSTAssociated Order(s): IR ANGIO AV SHUNT IMAGING [facility] Jules Mitchell 1945 DATE OF PROCEDURE: 03/31/2023 ORDERING PHYSICIAN: Mario Iyer MD PROCEDURE: 1. Left upper arm AV fistulogram with successful angioplasty the venous anastomosis with an 8 x 4 balloon. 2. Central venous angioplasty of the left subclavian and left innominate veins with a 10 x 2 balloon. INDICATIONS FOR PROCEDURE: Increased pulsatility of left upper arm AV graft and left arm swelling. DESCRIPTION OF PROCEDURE: Once the patient was prepped and draped in the usual sterile fashion he was given 1 percent lidocaine as local anesthetic. He tolerated this well. The micropuncture set was used to cannulate the left upper arm AV graft and fistulogram was obtained. This showed high-grade stenosis at the venous anastomosis and also at the left subclavian vein and left innominate vein. Tract was dilated and a 7 Togolese sheath was inserted. 8 x 4 balloon was then inserted and angioplasty of the venous anastomosis was performed with excellent results on completion angiography. 10 x 2 balloon was then inserted and angioplasty the left subclavian vein and also of the innominate vein rightat the SVC with excellent results on completion angiography. Patient tolerated the procedure well was found to be stable postoperatively. Preoperatively the patient understood the risks of procedurebe bleeding and infection and wanted to proceed. During the procedure we used 25 cc of Isovue an 8.4 mGy. DICTATED BY: Mario Iyer M.D./isacc Interventional Post-Operative/Procedure Notes Surgeon: Mario Iyer MD Pre Procedure Diagnosis: ESRD Post Procedure Diagnosis: ESRD Anesthesia: Local 1% lidocaine and IV sedation Disposition: OPS Status: Stable Drain or Pack: None Additional Information/Complications: None Estimated Blood Loss: Negligible Specimen: None ICAL THERAPY TECHNICIAN documented in this encounter Plan of Treatment Upcoming Encounters Date Type Department Care Team (Late st Contact Info) Description 08/23/2024 1:00 PM CDT Appointment [facility] Vascular Services [address] [place] [address], [place] [id number] [place] [address] [facility] [address] [place] [id number] [place] [address] [facility] [address] [place] [address] documented as of this encounter Procedures Procedure Name Priority Date/Time Associated Diagnosis Comments CARDIAC RHYTHM STRIP ORDER 04/01/2023 9:54 PM PHYSICAL THERAPY TECHNICIAN IR ANGIO AV SHUNT IMAGING Routine 03/31/2023 12:37 PM PHYSICAL THERAPY TECHNICIAN Encounter regarding vascular access for dialysis for end-stage renal disease (HCC) documented in this encounter Results * CARDIAC RHYTHM STRIP ORDER (04/01/2023 9:54 PM PHYSICAL THERAPY TECHNICIAN) Narrative 04/01/2023 9:54 PM PHYSICAL THERAPY TECHNICIAN Ordered by an unspecified provider. Scanned Document CARDIAC SERVICES ORD ERABLES * IR ANGIO AV SHUNT IMAGING (03/31/2023 12:37 PM PHYSICAL THERAPY TECHNICIAN) Anatomical Region Laterality Modality Lower Extremity, Upper Extremity, Chest X-Ray Angiography Narrative 03/31/2023 1:05 PM PHYSICAL THERAPY TECHNICIAN Mario Iyer MD ? 03/31/2023 ??1:[address] [facility] Jules Mitchell 1945 DATE OF PROCEDURE: 03/31/2023 ORDERING PHYSICIAN: Mario Iyer MD PROCEDURE: 1. ?Left upper arm AV fistulogram with successful angioplasty the venous anastomosis with an 8 x 4 balloon. ?? 2. ?Central venous angioplasty of the left subclavian and left innominate veins with a 10 x 2 balloon. ?? INDICATIONS FOR PROCEDURE: ?Increased pulsatility of left upper arm AV graft and left arm swelling. DESCRIPTION OF PROCEDURE: ? Once the patient was prepped and draped in the usual sterile fashion he was given 1 percent lidocaine as local anesthetic. ??He tolerated this well. ?? The micropuncture set was used to cannulate the left upper arm AV graft and fistulogram was obtained. ??This showed high-grade stenosis at the venous anastomosis and also at the left subclavian vein and left innominate vein. ??Tract was dilated and a 7 Togolese sheath was inserted. ??8 x 4 balloon was then inserted and angioplasty of the venous anastomosis was performed with excellent results on completion angiography. ??10 x 2 balloon was then inserted and angioplasty the left subclavian vein and also of the innominate vein right at the SVC with excellent results on completion angiography. ??Patient tolerated the procedure well was found to be stable postoperatively. ??Preoperatively the patient understood the risks of procedure be bleeding and infection and wanted to proceed. ??During the procedure we used 25 cc of Isovue an 8.4 mGy. DICTATED BY: ??Mario Iyer M.D./isacc Interventional Post-Operative/Procedure Notes Surgeon: ? Mario Iyer MD Pre Procedure Diagnosis: ?? ESRD Post Procedure Diagnosis: ?? ESRD Anesthesia: ? Local 1% lidocaine and IV sedation Disposition: ? OPS Status: ? Stable Drain or Pack: ?None Additional Information/Complications: None Estimated Blood Loss: ?? Negligible Specimen: ? None Osmany Molina MD IR ORDERABLES documented in this encounter Visit Diagnoses Diagnosis Encounter regarding vascular access for dialysis for end-stage renal disease (HCC) End stage renal disease documented in this encounter Administered Medications Inactive Administered Medications - up to 3 most recent administrations Medication Order MAR Action Action Date Dose Rate Site 0.9% NaCl infusion at 50 mL/hr, Intravenous, INTRA-PROCEDURE CONTINUOUS, Starting on Fri03/31/23 at 1200, Until Fri04/01/23 at 0152, Intra-procedure (IR) $ New Bag/Syringe 03/31/2023 12:39 PM PHYSICAL THERAPY TECHNICIAN 55 mL 50 mL/hr iopamidol (Isovue 300) 61 % contrast Intravenous, INTRA-PROCEDURE MULTIPLE, Starting on Fri03/31/23 at 1154, Until Fri04/01/23 at 0152, Intra/Post-procedure $ Given - Contrast 03/31/2023 12:40 PM PHYSICAL THERAPY TECHNICIAN 25 mL lidocaine (Xylocaine PF) 1% injection ADS Med 1 dose, Starting on Fri03/31/23 at 1154, Until Fri03/31/23 at 1240, Created by cabinet override lidocaine PF (Xylocaine MPF) 1 % injection Infiltration, INTRA-PROCEDURE MULTIPLE, Starting on Fri03/31/23 at 1154, Until Fri04/01/23 at 0152, Intra-procedure (IR) $ Given 03/31/2023 12:40 PM PHYSICAL THERAPY TECHNICIAN 15 mg documented in this encounter Care Teams Housekeeping Supervisor Relationship Specialty Start Date End Date Kwame Berg MD PCP - General Internal Medicine 01/19/19 [place] [id number] [address] Orthopedic Surgery Orthopedic Surgery 10/13/19 documented as of this encounter
--- OUTSIDE RECORDS SUMMARY | 2024-04-25 21:18 | XMS_ITS | Encounter Summary ---
Author Organization [facility] Address [facility] [place] [address] Care Team Providers Care Bookstore Clerk Name Role Phone Kwame Berg MD Primary Care Provider Dylon Agudelo MD Unavailable [phone] Reason for Visit * Reason Comments Post-Op [facility] Encounter Details Date Type Department Care Team (Late st Contact Info) Description 07/29/2022 10:30 AM CDT Office Visit [facility] Medical [facility] - Surgery [address] [facility], [address] [place] [phone] [place] [address] [facility] [address] [place] [phone] ESRD (end stage renal disease) (HCC) (Primary Dx) Social History Tobacco Use Types Packs/Day Years Used Date Smoking Tobacco: Former Cigarettes Q uit: 10/12/2012 Smokeless Tobacco: Never Tobacco Cessation:Counseling Given: No Alcohol Use Standard Drinks/Week Comments Not Currently 0 (1 standard drink = 0.6 oz pur e alcohol) Sex and Gender Information Value Date Recorded Sex Assigned at Not on file Gender Identity Not on file Sexual Orientation Not on file COVID-19 Exposure Response Date Recorded In the last 10 days, have yo u been in contact with someone who was confirmed or suspected to have Coronavirus/COVID-19? No / Unsure 07/08/2022 11:39 AM CDT documented as of this encounter Last Filed Vital Signs Vital Sign Reading Time Taken Comments Blood Pressure - - Pulse - - Temperature - - Respiratory Rate - - Oxygen Saturation - - Inhaled Oxygen Concentration - - Weight 55.3 kg (122 lb) 07/29/2022 10:45 AM CDT Height 157.5 cm (5' 2.01) 07/29/2022 10:45 AM C DT Body Mass Index 22.31 07/29/2022 10:45 AM CDT documented in this encounter Functional Status Functional [...] Yes 01/17/2020 documented as of this encounter Patient Instructions * Patient Instructions* Liz Medina E - 07/29/2022 10:47 AM CDT Patient's medications and allergies were reviewed with the patient today. Patient was instructed tocontact primary care physician or ordering provider with any questions regarding medications. Patient Name: Jules Mitchell Your procedure has been scheduled for: Date:Friday09/02/2022 Approximate Arrival Time: 6:00AM You will be notified by the hospital regarding your exact arrival time. Surgeon: Place: [x] Mario Iyer M.D. [x][facility]:[address] [place] [address]. Patient Registration [] Osmany Molina M.D. [] [facility] [] Olivier Mathew M.D. Ground Floor/[facility]. [] Regan Zhang M.D. [] [facility] [] Dre Arellano M.D First Floor Main Entrance [] Donna Powers D.O. [] Delmer Patrick M.D. [] Misael Burger D.O. [] Hay Cooper M.D. [] Mike Pinto D.O. [] Justo Jefferson M.D. [] Linda Apodaca M.D. INSTRUCTIONS: [x] Nothing to eat or drink after midnight. [x] Do take heart, blood pressure, or breathing medications with a sip of water the morning of surgery. [x] You will be having OUTPATIENT SURGERY. You will need someone to drive you home. Name of Procedure: LEFT UPPER ARM BASILIC VEIN TRANSPOSITION POSSIBLE ARTERIOVENOUS GRAFT Your follow-up appointment is: Date:Friday09/09/2022 Time: 10:00AM documented in this encounter Progress Notes * Mario Iyer MD - 07/29/2022 10:44 AM CDT Chief Complaint: ESRD, deep fistula History and Physical: Jules Mitchell is a 77 year old male. The patient is referred by Naveen Blackman MD. PCP is Kwame Berg MD. Patient has a left deep brachial vein dialysis fistula. The fistula has matured nicely, however is deep. The patient denies shortness of breath, anorexia or fatigue. Will plan for left arm dialysisfistula transposition, possible graft. Past Medical History: Diagnosis Date ??? Cancer (CMS/HCC) 1999 pt unsure of type of cancer- ??? Chronic kidney disease ??? Dementia (CMS/HCC) ??? ESRD (end stage renal disease) ([facility]/HCC) [facility] -,,sat as of 07/29/22 ??? High blood pressure ??? Pure hypercholesterolemia ??? Stroke (CMS/HCC) 2004 per pt Past Surgical History: Procedure Laterality Date ??? A-V SHUNT CREATION Right 03/15/2020 Right; RIGHT ARM DIALYSIS GRAFT ??? HIP ARTHROPLASTY, TOTAL Left 01/12/2020 LEFT POSTERIOR ARTHROPLASTY TOTAL HIP ??? HIP ARTHROPLASTY, TOTAL 01/12/2020 LEFT POSTERIOR ARTHROPLASTY TOTAL HIP ??? INSERTION DIALYSIS CATHETER Right 04/2019 r chest tunneled cath ??? OTHER SURGERY Testicular surgery per nephew but not positive? VASCULAR PROCEDURE/SURGERY 10/20/2019 RIGHT UPPER ARM ARTERIOVENOUS FISTULA ??? VASCULAR PROCEDURE/SURGERY Left 06/24/2022 Left; LEFT UPPER ARM ARTERIO-VENOUS (AV) FISTULA Outpatient Medications Marked as Taking for the 07/29/22 encounter (Office Visit) with Mario Iyer MD Medication Sig Dispense Refill ??? allopurinol (ZYLOPRIM) 100 MG tablet Take 1 (one) tablet by mouth once daily ??? apixaban (ELIQUIS) 2.5 MG tablet Take 1 tablet by mouth 2 times daily 60 tablet 0 ??? atorvastatin (LIPITOR) 20 MG tablet Take 1 (one) tablet by mouth at bedtime 0 ??? dilTIAZem (CARDIZEM) 30 MG tablet Take 1 (one) tablet by mouth 3 times daily ??? folic acid (Folvite) 1 MG tablet Take 1 (one) tablet by mouth once daily ??? furosemide (LASIX) 80 MG tablet Take 1 (one) tablet by mouth 2 times daily ??? lanthanum (Fosrenol) 500 MG chew tablet 1 (one) tablet 2 times daily ??? levETIRAcetam (KEPPRA) 100 MG/ML oral solution Take 5 mL by mouth 2 times daily ??? lidocaine-prilocaine (EMLA) 2.5-2.5 % cream ??? lisinopril (PRINIVIL; ZESTRIL) 10 MG tablet Take 1 (one) tablet by mouth once daily ??? polyethylene glycol 3350 (MIRALAX) 17 g packet Take 17 (seventeen) g by mouth once daily as needed ??? rOPINIRole (REQUIP) 0.5 MG tablet Take 1 (one) tablet by mouth Three times a week ??? sevelamer carbonate (RENVELA) 800 MG Take 1 (one) tablet by mouth 3 times daily with meals ??? sodium bicarbonate 325 MG tablet Take 1 (one) tablet by mouth once daily ??? tamsulosin (FLOMAX) 0.4 MG capsule Take 1 (one) capsule by mouth at bedtime At the same time every day after a meal. ??? vitamin D, ergocalciferol, (DRISDOL) 1.25 MG (58686 UT) capsule Take 1 (one) capsule by mouth every 30 days No Known Allergies Family History Problem Relation Name Age of Onset ??? Hypertension Mother ??? Hypertension Sister ??? Diabetes - Type 2 Sister Social History Tobacco Use ??? Smoking status: Former Types: Cigarettes Quit date: 10/12/2012 Years since quittin.8 ??? Smokeless tobacco: Never Substance Use Topics ??? Alcohol use: Not Currently Review of Systems General: No fatigue or [...] bleeding Rectal: No rectal bleeding or pain Physical Examination: Constitutional: Vital signs are normal, patient is alert Eyes: Reveal no icterus. Neck: Neck is without mass or swelling. Respiratory: Lungs without wheezing or SOB Cardiovascular: Regular rate and rhythm. GI: Abdomen is soft, no mass Musculoskeletal: All four extremities are warm, patent left arm fistula. Neurologic: Intact. Impression/Plan: ESRD. Will plan for left arm dialysis fistula transposition, possible graft. I have discussed the risks, benefits and alternatives to surgery with the patient who understands and wishes to proceed. Past Medical History: Diagnosis Date ??? Cancer (CMS/HCC) 2000 pt unsure of type of cancer- ??? Chronic kidney disease ??? Dementia (CMS/HCC) ??? ESRD (end stage renal disease) (CMS/HCC) [facility] -,sat as of 07/29/22 ??? High blood pressure ??? Pure hypercholesterolemia ??? Stroke (CMS/HCC) 2004 per pt documented in this encounter Plan of Treatment Upcoming Encounters Date Type Department Care Team (Late st Contact Info) Description 08/23/2024 1:00 PM CDT Appointment [facility] Vascular Services [address] [place] [address], [address] [place] [address] [place] [address] [facility] [address] [place] [address] [place] [address] [facility] [address] [place] [address] documented as of this encounter Visit Diagnoses Diagnosis ESRD (end stage renal disease) (HCC)- Primary End stage renal disease documented in this encounter Care Teams Bookstore Clerk Relationship Specialty Start Date End Date Kwame Berg MD PCP - General Internal Medicine 01/19/19 [place] [address] [phone] Orthopedic Surgery Orthopedic Surgery 10/13/19 documented as of this encounter
--- OUTSIDE RECORDS SUMMARY | 2024-04-25 21:18 | XMS_ITS | Clinical Summary ---
Author Organization [facility] [employer] Address [address] [place] [address] Care Team Providers Care Index Editor Name Role Phone Kwame Berg MD Primary Care Provider [phone] Dylon Agudelo MD Unavailable [phone] Source Comments [facility],non-owned Affiliates and Associated Physician Practices is amultiple site organization consisting of ambulatory clinics and hospital sitesin [place], [place], [place] and [place]. This disclosure is being madepursuant to the Care Everywhere program and may not contain all information available regarding this patient. Last updated 18.[facility] Allergies No known active allergies Medications * Be aware that medications may not be up to date on this document. Alwaysverify current medications with the patient. Medication Sig Dispensed Refills Start Date End Date Status atorvastatin (LIPITOR) 20 MG tablet Take 1 (one) tablet by mouth at bedtime 0 01/19/2019 Active rOPINIRole (REQUIP) 0.5 MG tablet Take 1 (one) tablet by mouth Three times a week 06/23/2019 Active furosemide (LASIX) 80 MG tablet Take 1 (one) tablet by mouth 2 times daily 05/11/2019 Active allopurinol (ZYLOPRIM) 100 MG tablet Take 1 (one) tablet by mouth once daily 05/29/2019 Active tamsulosin (FLOMAX) 0.4 MG capsule Take 1 (one) capsule by mouth at bedtime At the same time every day after a meal. Active sevelamer carbonate (RENVELA) 800 MG Take 1 (one) tablet by mouth 3 times daily with meals Active apixaban (ELIQUIS) 2.5 MG tablet Take 1 tablet by mouth 2 times daily 60 tablet 01/19/2020 Active levETIRAcetam (KEPPRA) 100 MG/ML oral solution Take 5 mL by mouth 2 times daily 07/26/2021 Active dilTIAZem (CARDIZEM) 30 MG tablet Take 1 (one) tablet by mouth 3 times daily 08/24/2021 Active folic acid (Folvite) 1 MG tablet Take 1 (one) tablet by mouth once daily 06/04/2022 Active calcium carbonate (Tums) 500 MG chew tablet Take 1 (one) tablet by mouth daily with food Active acetaminophen (Tylenol) 500 MG tablet Take 1 (one) tablet by mouth every 6 hours as needed for Fever or Pain Maximum allowable Acetaminophen amount = 4 Grams (4000 mg) / 24 hours. 0 12/13/2022 Active Additional Information Patient not taking.Reason: Other (not needed), Reported on 02/23/2024 polyethylene glycol 3350 (Miralax) 17 GM/SCOOP powder MIX 1 SCOOP IN WATER AND DRINK BY MOUTH ONCE A DAY 04/14/2023 Active fluconazole (Diflucan) 100 MG tablet Take 1 (one) tablet by mouth once daily Active Active Problems Problem Noted Date Diagnosed Date Encounter regarding vascular access for dialysis for end-stage renal disease 05/10/2022 ESRD (end stage renal disease) 10/21/2019 Primary osteoarthritis of left hip 06/29/2019 Encounters Date Type Department Care Team Description 02/23/2024 11:47 AM CDT - 02/23/2024 11:59 PM CDT Hospital Encounter [facility] [address] [place] [address], [place] [address] Mario Iyer MD Charles, Thomas B, MD Discharge Disposition: Home or Self Care from Last 3 Months Immunizations Name Administration Dates Next Due HEP B VACCINE, ADULT 3 DOSE 09/18/2021,0 01/13/2021,09/21/2020,2020,06/17/2020,06/17/2019 INFLUENZA 02/08/2021, 0,01/13/2019,2018,12/27/2018,03/17/2018 INFLUENZA VACCINE, HIGH-DOSE , QUADR. (FLUZONE HIGH-DOSE QUADRIVALENT; 65Y+), 0.7 ML (HD-IIV4) 01/19/2020 PNEUMOCOCCAL PCV, HISTORIC VACCINE 12/25/2021,,05/25/2012 Family History Medical History Relation Name Comments Hypertension Mother Diabetes - Type 2 Sister Hypertension Sister Relation Name Status Comments Father Mother Sister Social History Tobacco Use Types Packs/Day Years Used Date Smoking Tobacco: Former Cigarettes Q uit: 10/12/2012 Smokeless Tobacco: Never Tobacco Cessation:Counseling Given: Not Answered Alcohol Use Standard Drinks/Week Comments Not Currently 0 (1 standard drink = 0.6 oz pur e alcohol) Sex and Gender Information Value Date Recorded Sex Assigned at Not on file Gender Identity Not on file Sexual Orientation Not on file Last Filed Vital Signs Vital Sign Reading Time Taken Comments Blood Pressure 190/77 02/23/2024 12:40 PM CDT Pulse 73 02/23/2024 12:40 PM CDT Temperature 37.1 ??C (98.8 ??F) 02/23/2024 12:19 PM C DT Respiratory Rate 8 02/23/2024 12:40 PM CDT Oxygen Saturation 91% 02/23/2024 12:40 PM CDT Inhaled Oxygen Concentration - - Weight 54.4 kg (120 lb) 02/23/2024 12:19 PM CDT Height 172.7 cm (5' 8) 02/23/2024 12:19 PM CDT Body Mass Index 18.25 02/23/2024 12:19 PM CDT Plan of Treatment Upcoming Encounters Date Type Department Care Team (Late st Contact Info) Description 08/23/2024 1:00 PM CDT Appointment [facility] [address] [place] [address], [address] [place] [address] [place] [address] [facility] [address] [place] [address] [place] [address] [facility] [address] [place] [address] Health Maintenance Due Date Last Done Comments MEDICARE AWV ? 12 MONTHS 1944 DTAP/TDAP/TD VACCINES (1 - Tdap) 1963 ZOSTER VACCINE (1 of 2) 1994 Respiratory Syncytial Virus (RSV) Vaccine Pt: or over 60 yrs (1 - 1-dose 75+ series) 2019 PNEUMOCOCCAL VACCINE 65+ (2 of 2 - PPSV23 or PCV20) 12/25/2022 12/25/2021, 08/29/2020, 05/25/2012 DEPRESSION SCREENING 04/28/2023 COVID-19 VACCINE (3 - season) 2023 08/15/2021, 07/17/2021 INFLUENZA VACCINE (#1) 2023 , 02/03/2020, 01/19/2020, Additional history exists HEPATITIS B VACCINE Completed 09/18/2021, 01/13/2021, 09/21/2020, Additional history exists HIB VACCINE Aged Out No longer eligi ble based on patient's age to complete this topic HPV VACCINE Aged Out No longer eligi ble based on patient's age to complete this topic MENINGOCOCCAL VACCINE Aged Out No pritesh luc eligible based on patient's age to complete this topic Medical Devices Implanted Type Area Quantitative Researcher Device Identifier Shelf Expiration Date Model / Serial / Lot [id number] Aetabular Shell 3 Hole Porous Plasma, Cementless Implanted:Qty: 1 on 01/12/2020 by Dylon Agudelo MD at [facility] Left: Hip [employer] 12/23/2028 [id number] / / [id number] Bone Screw Self Tapping 6.5 Diameter/ 30mm Length Implanted:Qty: 1 on 01/12/2020 by Dylon Agudelo MD at [facility] Left: Hip [employer] 06/25/2029 / / [id number] Bone Screw Self Tapping 6.5mm Diameter/ 20mm Length Implanted:Qty: 1 on 01/12/2020 by Dylon Agudelo MD at [facility] Left: Hip [employer] 01/25/2027 / / [id number] Vivacit E Vitamine Highly Crosslinked Polyethylene Liner Implanted:Qty: 1 on 01/12/2020 by Dylon Agudelo MD at [facility] Left: Hip [employer] 01/26/2024 [id number] / / [id number] Taperlock Complete Micro Primary Femoral Stem 6x97.5 Mm Implanted:Qty: 1 on 01/12/2020 by Dylon Agudelo MD at [facility] Left: Hip [employer] 04/20/2028 [id number] / / [id number] Ceramic Head Implanted:Qty: 1 on 01/12/2020 by Dylon Agudelo MD at [facility] Left: Hip [employer] 08/16/2029 [id number] / / [id number] Slv Centering -3mm Ofst Tpr Hip Blx D Ty Implanted:Qty: 1 on 01/12/2020 by Dylon Agudelo MD at [facility] Left: Hip [employer] 10/13/2029 [id number] / / [id number] Graft Vasc 4-7mm 40cm Grtx Std Wl Tpr Ln - [id number] Implanted:Qty: 1 on 03/15/2020 by Mario Iyer MD at [facility] Right: Arm [employer] 12/26/2024 [id number] / [id number] / Graft Vasc 4-7mm 45cm Grtx Std Wl Tpr - [id number] Implanted:Qty: 1 on 10/21/2022 by Mario Iyer MD at [facility] Left: Arm [employer] 07/22/2027 [id number] / [id number] / Explanted Type Area Quantitative Researcher Device Identifier Shelf Expiration Date Model / Serial / Lot Bone Screw 6.5 Mm Diameter/ 25mm Length Explanted:Qty: 1 on 01/12/2020 at [facility] Left: Hip [employer] 03/27/2029 / / [id number] Procedures Procedure Name Priority Date/Time Associated Diagnosis Comments CARDIAC RHYTHM STRIP ORDER 02/24/2024 6:15 PM CDT from Last 3 Months Results * CARDIAC RHYTHM STRIP ORDER (02/24/2024 6:15 PM CDT) Narrative 02/24/2024 6:15 PM CDT Ordered by an unspecified provider. Scanned Document CARDIAC SERVICES ORD ERABLES from Last 3 Months Advance Directives * Full Code (Latest Code Status on File) Date Activated Date Inactivated Comments 01/21/2020 8:10 AM 02/01/2020 5:54 PM * Full Code Date Activated Date Inactivated Comments 01/12/2020 3:45 PM 01/20/2020 5:13 PM * Full Code Date Activated Date Inactivated Comments 05/12/2019 9:20 AM 05/28/2019 1:01 PM Care Teams Index Editor Relationship Specialty Start Date End Date Kwame Berg MD PCP - General Internal Medicine 01/19/[address] [place] [address] [facility] [address] [place] [phone] Orthopedic Surgery Orthopedic Surgery 10/13/19
--- OUTSIDE RECORDS SUMMARY | 2024-04-25 21:18 | XMS_ITS | Encounter Summary ---
Author Organization [facility] Address [address] [place] [address] Care Team Providers Care Point Of Care Technician Name Role Phone Kwame Berg MD Primary Care Provider [phone] Dylon Agudelo MD Unavailable [phone] Reason for Visit * Auth/Cert (Routine) Specialty Diagnoses / Procedures Referred By Contac t Referred To Contact Procedures ARTERIOVENOUS FISTULA TRANSPOSITION / SUPERFICIALIZATION Referral ID Status Reason Start Date Expiration Date Visits Re quested Visits Authorized [id number] 1 1 Encounter Details Date Type Department Care Team (Late st Contact Info) Description 10/21/2022 7:24 AM CDT Anesthesia Event [facility] - Perioperative Surgery [address] [place] [address] [place] [address] [place], [place] [id number] Anesthesia Record Procedure Summary Procedure Name Responsible Anesthesiologist Anesthesia Start Time Anesthesia Stop Time left arm dialysis fistula transposition with graft. (Left: Arm) Megan Ca DO 10/21/22 0724 10/21/22 0838 Events Date Time Event Comment 10/21/2022 0637 0724 An Start 0726 An Start Data 0731 PT Reassessment 0742 Timeout Anesthesia part icipated in timeout at the time documented in the record by nursing. 0838 Electnc Sig This record is electronically signed by the providers listed under staff. 0838 an stop data 0838 An Stop Meds Name Total fentaNYL 100 mcg/2mL injection 100 mcg propofol 1000 mg/100mL infusion 185.23 m g ondansetron 4 mg/2mL injection 4 mg phenylephrine 100 mcg/mL solution 1,400 mcg dexamethasone 4 mg/mL injection 4 mg ceFAZolin (Ancef) 2,000 mg in 50 ml IVPB 2 g ePHEDrine 50 mg/mL injection 10 mg heparin 1,000 units/mL - 1mL injection 2 ,000 Units 0.9% NaCl infusion 300 mL * Agents Name Exp. N2O O2 * Blood No blood administrations on file. Lines, Drains, and Airways Type Details Placement Removal Hemodialysis AV Access 10/20/19; 1426; Fistula; Right Upper Arm 10/20/19 1426 by Clare Mann RN Hemodialysis AV Access 06/24/22; Graft; Left Upper Arm 06/24/22 0000 by Oly Castro RN Hemodialysis Tunneled Catheter 05/23/22; 1524; Subclavian; Left; [id number]; [id number]; [id number]; 15.5; 32; 12/13/22; 1547 05/23/22 1524 by Carlyn Mishra RN 12/13/22 1547 by Carlyn Mishra RN Peripheral IV Date: 10/21/22; Time: 07; Orientation: Right, Posterior; Placed By: sigifredo nguyen rn; Tolerance: Well 10/21/22 0711 by Estiven Nguyen RN 10/21/22 1030 by Estiven Nguyen RN Procedural Site (Incision) 10/21/22; 0743; Left; Arm; incision x 2; 10/21/22; 1727 10/21/22 0743 by Gabriel Martinez RN 10/21/22 1727 by Generic, Auto Release documented in this encounter Social History Tobacco Use Types Packs/Day Years [...] on file documented as of this encounter Functional Status Functional Status Response [...] Yes 01/17/2020 documented as of this encounter Progress Notes * Dolores BrockCORRINE-SEISMOMETER OPERATOR - 10/21/2022 8:40 AM CDT ANESTHESIA POSTOP EVALUATION NOTE Procedure: left arm dialysis fistula transposition with graft. (Left: Arm) Jules Mitchell is a 77 year old male Patient Vitals for the past 6 hrs: BP Temp Pulse Resp SpO2 Pain Rating Score #1 Pain Scale/Observation 10/21/22 0706 136/55 97.4 ??F (36.3 ??C) 65 16 97 % 0 N Anesthesia Type: MAC * No Diagnosis Codes entered * Mental Status: awake, alert, oriented and sufficiently recovered from acute administration of anesthesia to participate in the evaluation Neuro Status: No numbness, tingling or visual disturbances Respiratory Function: natural Cardiac Function: stable Postop Pain: acceptable to the patient Postop Hydration: adequate Postop Nausea: none Assessment: no apparent anesthetic complications, patient tolerated procedure well and no evidence of recall Patient Disposition: Release from Anesthesia Care NOTABLE EVENTS: No notable events documented. * Megan Ca DO - 10/21/2022 6:37 AM CDT ANESTHESIA PREOPERATIVE EVALUATION NOTE Procedure: LEFT UPPER ARM BASILIC VEIN TRANSPOSITION POSSIBLE ARTERIOVENOUS GRAFT (Left: Arm) Vitals: No data found. LMP: No LMP for male patient. OB Status: unknown ANESTHESIA PRE-EVALUATION NOTE Physical Exam: Orientation X3 Airway/Mallampati Score: II Mouth Opening Distance: 3 fingerwidths Neck ROM: full Teeth: edentulous Heart: normal - S1 S2 Lungs: clear to ausculation bilaterally ANESTHESIA PLAN ASA Score: 4 NPO Status: No solids since midnight and No liquids within 2 hours Anesthesia Plan: MAC Planned Induction: intravenous Planned Postop Destination: OPS Anesthetic plan was discussed with: patient, other - comments (Nephew ) Anesthetic Plan discussion was: Consented BMI, Height, Weight Tobacco History Estimated body mass index is 22.31 kg/m?? as calculated from the following: Height as of 07/29/22: 1.575 m (5' 2.01). Weight as of 07/29/22: 55.3 kg (122 lb). Social History Tobacco Use Smoking Status Former ??? Types: Cigarettes ??? Quit date: 10/12/2012 ??? Years since quittin.0 Smokeless Tobacco Never Vaping Use ??? Vaping Use: Never used Alcohol History Drug History Social History Substance and Sexual Activity Alcohol Use Not Currently Social History Substance and Sexual Activity Drug Use Never Outpatient Medications: Inpatient Medications: Outpatient Medications Marked as Taking for the 10/21/22 encounter (Hospital Encounter) Medication Sig Last Dose ??? albuterol albuterol sulfate concentrate 5 mg/mL(0.5 %) solution for nebulization ??? allopurinol Take 1 (one) tablet by mouth once daily ??? apixaban Take 1 tablet by mouth 2 times daily ??? atorvastatin Take 1 (one) tablet by mouth at bedtime ??? calcium carbonate Take 1 (one) tablet by mouth daily with food ??? dilTIAZem Take 1 (one) tablet by mouth 3 times daily ??? folic acid Take 1 (one) tablet by mouth once daily ??? furosemide Take 1 (one) tablet by mouth 2 times daily ??? levETIRAcetam Take 5 mL by mouth 2 times daily ??? polyethylene glycol 3350 Take 17 (seventeen) g by mouth once daily as needed ??? rOPINIRole Take 1 (one) tablet by mouth Three times a week ??? sevelamer carbonate Take 1 (one) tablet by mouth 3 times daily with meals ??? tamsulosin Take 1 (one) capsule by mouth at bedtime At the same time every day after a meal. Current Facility-Administered Medications Medication Dose Last Admin ??? 0.9% NaCl IV ??? 0.9% NaCl 3 mL And ??? 0.9% NaCl 1-10 mL ??? ceFAZolin 2 g ??? lidocaine 0.2 mL Allergies: No Known Allergies Relevant Problems No relevant active problems Problem List: Patient Active Problem List Diagnosis Date Noted ??? Encounter regarding vascular access for dialysis for end-stage renal disease ([facility] 05/10/2022 Priority: Not Prioritized ??? ESRD (end stage renal disease) (CMS/HCC) 10/21/2019 Priority: Not Prioritized ??? Primary osteoarthritis of left hip 06/29/2019 Priority: Not Prioritized Medical History: Past Medical History: Diagnosis Date ??? Cancer (CMS/HCC) 2000 pt unsure of type of cancer- ??? Chronic kidney disease ??? Dementia (CMS/HCC) ??? ESRD (end stage renal disease) ([facility]/HCC) [facility] -t,,sat as of 07/29/22 ??? High blood pressure ??? Pure hypercholesterolemia ??? Stroke ([facility]/HCC) 2005 per pt Surgical History: Past Surgical History: Procedure Laterality Date ??? 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 unknown OB History No obstetric history on file. Covid Vaccine: Lab Results: Recent Labs Component Name 06/24/22 0748 PH 7.44* PO2VEN 43* [id number] 48 WGI0DHD 32.6* BEVEN 7.5* [id number] 9.5 [id number] 72 No results found for requested labs within last 120 days. Recent Labs Result Component Current Result Anion Gap (AG) Arterial 13 (06/24/2022) documented in this encounter Miscellaneous Notes * Anesthesia Transfer of Care - Dolores Brock APRN-ERNESTO - 10/21/2022 8:38 AM CDT ANESTHESIA TRANSFER OF CARE NOTE Today's Date: 10/21/2022 Date of : 1945 Patient: Jules Mitchell Procedure(s): left arm dialysis fistula transposition with graft. Surgeon(s): Primary: Mario Iyer MD Preop Diagnosis: * No Diagnosis Codes entered * Pre-op Meds (From admission, onward) Start Stop Status Route Frequency Ordered 10/21/22 0645 0.9% NaCl infusion 10/21/23 0644 Dispensed IV PRE-OP CONTINUOUS 10/21/22 0630 10/21/22 0833 0.9% NaCl injection -- Sent PRN 10/21/22 0834 10/21/22 0630 0.9% NaCl injection 1-10 mL See Hyperspace for full Linked Orders Report. -- Dispensed IK PRN 10/21/22 0630 10/21/22 0645 0.9% NaCl injection 3 mL See Hyperspace for full Linked Orders Report. -- Dispensed IK EVERY 8 HOURS 10/21/22 0630 10/21/22 0645 ceFAZolin (Ancef) 2,000 mg in 50 ml IVPB 10/21/22 0730 Completed IV ONCE 10/21/22 0630 10/21/22 0750 heparinized saline 2 units/mL infusion -- Sent CONTINUOUS PRN 10/21/22 0751 10/21/22 0743 lidocaine 2% - EPINEPHrine 1:100,000 injection -- Sent PRN 10/21/22 0752 10/21/22 0645 lidocaine PF (Xylocaine MPF) 1 % injection 0.2 mL 10/21/22 0716 Completed INFILTRATION PRE-OP ONCE 10/21/22 0630 * No Diagnosis Codes entered * . No Known Allergies Vitals: Patient Vitals for the past 3 hrs: BP Temp Pulse Resp SpO2 Pain Rating Score #1 10/21/22 0706 136/55 97.4 ??F (36.3 ??C) 65 16 97 % 0 Lines, Drains, and Airways Type Details Placement Removal Peripheral IV Date: 10/21/22; Time: 710; Orientation: Right, Posterior; Location: Hand; Placed By:sigifredo nguyne rn; Gauge: 20 Gauge; Locals: Injectable; Tolerance: Well 10/21/22 0711 by Estiven Nguyen RN Intraprocedure I/O Totals Intake 0.9% NaCl infusion 300.00 mL Total Intake 300 mL Output Estimated Blood Loss 10 mL Total Output 10 mL Net Net Volume 290 mL Patient Transfer Location: OPS Transport Airway: spontaneous respirations Complications: None Handoff Given? Yes Checklist or Protocol - The mario handoff elements that must be included in the transfer of care checklist include: 1. Identification of patient. 2. Identification of responsible practitioner (PACU nurse or advanced practitioner). 3. Discussion of pertinent medical history. 4. Discussion of the surgical/procedure course (procedure, reason for surgery, procedure performed). 5. Intraoperative anesthetic management and issue/concerns. 6. Expectations/Plans for the early post-procedure period. 7. Opportunity for questions and acknowledgement of understanding of report from the receiving PACUteam. ECHO Magallanes documented in this encounter Plan of Treatment Upcoming Encounters Date Type Department Care Team (Late st Contact Info) Description 08/23/2024 1:00 PM CDT Appointment [facility] Vascular Services [address] [place] [address], [address] [place] [address] [place] [id number] [place] [address] [address] [place] [address] [place] [id number] [place] [address] [address] [place] [address] documented as of this encounter Visit Diagnoses Not on filedocumented in this encounter Administered Medications Inactive Administered Medications - up to 3 most recent administrations Medication Order MAR Action Action Date Dose Rate Site 0.9% NaCl infusion at 20 mL/hr, Intravenous, PRE-OP CONTINUOUS, Starting on Fri10/21/22 at 0645, Until Fri10/21/22 at 1227, For Dialysis or Chronic Renal Failure patients. Use 500 ml bag and micro drip tubing, Pre-op Restarted 10/21/2022 8:29 AM CDT Rate Change 10/21/2022 7:24 AM CDT 20 mL/hr $ New Bag/Syringe 10/21/2022 7:16 AM CDT 20 mL/ hr ceFAZolin (Ancef) 2,000 mg in 50 ml IVPB 2,000 mg (2 g), at 100 mL/hr, Intravenous, ONCE, 1 dose, On Fri10/21/22 at 0645, Administer 30 minutes prior to surgical incision., Indication for anti-infective therapy: Surgical prophylaxis, Pre-op $ Given 10/21/2022 7:30 AM CDT 2 g dexAMETHasone (Decadron) injection Intravenous, PRN, Starting on Fri10/21/22 at 0734, Until Fri10/21/22 at 0838, Anesthesia Intra-op $ Given 10/21/2022 7:34 AM CDT 4 mg ePHEDrine injection Intravenous, PRN, Starting on Fri10/21/22 at 0749, Until Fri10/21/22 at 0838, Anesthesia Intra-op $ Given 10/21/2022 7:49 AM CDT 10 mg fentaNYL (PF) (Sublimaze) injection Intravenous, PRN, Starting on Fri10/21/22 at 0731, Until Fri10/21/22 at 0838, Anesthesia Intra-op $ Given 10/21/2022 8:29 AM CDT 25 mcg $ Given 10/21/2022 8:03 AM CDT 25 mcg $ Given 10/21/2022 7:38 AM CDT 25 mcg heparin injection Intravenous, PRN, Starting on Fri10/21/22 at 0803, Until Fri10/21/22 at 0838, Anesthesia Intra-op $ Given 10/21/2022 8:03 AM CDT 2,000 Units ondansetron (Zofran) injection Intravenous, PRN, Starting on Fri10/21/22 at 0734, Until Fri10/21/22 at 0838, Anesthesia Intra-op $ Given 10/21/2022 7:34 AM CDT 4 mg phenylephrine 100 mcg/mL injection Intravenous, PRN, Starting on Fri10/21/22 at 0741, Until Fri10/21/22 at 0838, Anesthesia Intra-op $ Given 10/21/2022 8:17 AM CDT 200 mcg $ Given 10/21/2022 8:14 AM CDT 200 mcg $ Given 10/21/2022 8:11 AM CDT 200 mcg propofol (Diprivan) infusion Intravenous, CONTINUOUS PRN, Starting on Fri10/21/22 at 0732, Until Fri10/21/22 at 0838, Anesthesia Intra-op Rate Change 10/21/2022 8:23 AM CDT 60 mcg/kg/min 19.584 mL/hr Rate Change 10/21/2022 8:04 AM CDT 75 mcg/kg/min 24.48 mL/ hr Rate Change 10/21/2022 7:43 AM CDT 50 mcg/kg/min 16.32 mL/ hr documented in this encounter Care Teams Point Of Care Technician Relationship Specialty Start Date End Date Kwame Berg MD PCP - General Internal Medicine 01/19/19 [place] [id number] [address] Orthopedic Surgery Orthopedic Surgery 10/13/19 documented as of this encounter
--- OUTSIDE RECORDS SUMMARY | 2024-04-25 21:18 | XMS_ITS | Encounter Summary ---
Author Organization [facility] Address [address] [place] [address] Care Team Providers Care Occasional Babysitter Name Role Phone Kwame Berg MD Primary Care Provider [phone] Dylon Agudelo MD Unavailable [phone] Encounter Details Date Type Department Care Team (Latest Contact Info) Description 11/24/2023 Travel Social History Tobacco Use Types Packs/Day Years [...] Yes 01/17/2020 documented as of this encounter Plan of Treatment Upcoming Encounters Date Type Department Care Team (Late st Contact Info) Description 08/23/2024 1:00 PM CDT Appointment [facility] Vascular Services [address], [address] [place] [address] [place] [address] [place] [address] [place] [address] [address] [place] [address] documented as of this encounter Visit Diagnoses Not on filedocumented in this encounter Care Teams Occasional Babysitter Relationship Specialty Start Date End Date Kwame Berg MD PCP - General Internal Medicine 01/19/19 [place] [id number] [address] [place] [address] Orthopedic Surgery Orthopedic Surgery 10/13/19 documented as of this encounter
--- OUTSIDE RECORDS SUMMARY | 2024-04-25 21:18 | XMS_ITS | Encounter Summary ---
Author Organization [facility] Address [address] [place] [address] Care Team Providers Care Farm Agent Name Role Phone Kwame Berg MD Primary Care Provider [phone] Dylon Agudelo MD Unavailable [phone] Reason for Referral * (Routine) - Closed Specialty Diagnoses / Procedures Referred By Vivienne burrell Referred To Contact Vascular Lab Procedures [place] [address] [place] [address] [facility] [address], [address] [place] [address] Referral ID Status Reason Start Date Expiration Date Visits Re quested Visits Authorized [id number] Closed 12/13/2022 12/13/2023 1 1 Reason for Visit * Radiology Services (Routine) - Closed Specialty Diagnoses / Procedures Referred By Vivienne burrell Referred To Contact Diagnoses ESRD (end stage renal disease) (HCC) Procedures IR [place] [address] [facility] [address] [place] [address] Referral ID Status Reason Start Date Expiration Date Visits Re quested Visits Authorized [id number] Closed 11/18/2022 11/18/2023 1 1 Encounter Details Date Type Department Care Team (Latest Contact Info) Description 12/13/2022 1:53 PM CDT - 12/13/2022 11:59 PM CDT Hospital Encounter [facility] V[facility] Services [address], [address] [place] [address] Tyshawn Heller MD [address] [place] [address] [place] [address] [place] [id number] Discharge Disposition: Home or Self Care Social [...] Sign Reading Time Taken Comments Blood Pressure 156/60 12/13/2022 3:55 PM CDT Pulse 64 12/13/2022 3:55 PM CDT Temperature 36.4 ??C (97.5 ??F) 12/13/2022 2:11 PM CD T Respiratory Rate 14 12/13/2022 3:55 PM CDT Oxygen Saturation 98% 12/13/2022 3:55 PM CDT Inhaled Oxygen Concentration - - Weight 57.6 kg (127 lb) 12/13/2022 2:11 PM CDT Height 157.5 cm (5' 2) 12/13/2022 2:11 PM CDT Body Mass Index 23.23 12/13/2022 2:11 PM CDT documented in this encounter Functional Status [...] same time every day after a meal. albuterol (Proventil;Ventolin) (5 MG/ML) 0.5% nebulizer solution albuterol sulfate concentrate 5 mg/mL(0.5 %) solution for nebulization 03/31/2023 HYDROcodone-acetamin ophen ([place]) 7.5-325 MG tabletIndications:ES RD (end stage renal disease) (HCC) Take 1 (one) tablet by mouth every 6 hours as needed for Pain 30 tablet 10/21/2022 03/31/2023 lanthanum (Fosrenol) 500 MG chew tablet 1 (one) tablet 2 times daily 01/14/2022 03/31/2023 lidocaine-prilocaine (EMLA) 2.5-2.5 % cream 09/22/2021 03/31/2023 polyethylene glycol 3350 (MIRALAX) 17 g packet Take 17 (seventeen) g by mouth once daily as needed 08/09/2019 08/04/2023 documented as of this encounter Progress Notes * Vee Esqueda RN - 12/13/2022 2:15 PM CDT Pt has left upper arm access. Thrill present throughout. Becomes slightly pulsatile distal to anastomosis. Pt has a cvc that is to be removed today d/t functioning permanent access. documented in this encounter H&P Notes * Hay Cooper DO - 12/13/2022 2:41 PM CDT Chief Complaint ESRD History and Physical Jules Mitchell is a 77 year old male with pulsatile flow in his left arm AVG. Patient also has a tunneled HD catheter that is currently not being utilized for HD. Patient was offered left arm AV fistulagram and possible removal of his catheter. Past Medical History: Diagnosis Date ??? Cancer (CMS/HCC) 1999 pt unsure of type of cancer- ??? Chronic kidney disease ??? Dementia (CMS/HCC) ??? ESRD (end stage renal disease) (CMS/HCC) [facility] -,,sat as of 11/18/2022 ??? High blood pressure [...] Current Outpatient Medications on File Prior to Encounter Medication Sig Dispense Refill ??? albuterol (Proventil;Ventolin) (5 MG/ML) 0.5% nebulizer [...] by mouth 2 times daily ??? HYDROcodone-acetaminophen ([place]) 7.5-325 MG tablet Take 1 (one) tablet [...] current facility-administered medications on file prior to encounter. Social History Tobacco Use ??? Smoking status: Former Types: Cigarettes Quit date: 10/12/2012 Years since quittin.1 ??? Smokeless tobacco: Never Vaping Use ??? [...] or pain Impression/Plan: ESRD. Will plan for fistulogram and removal of dialysis catheter. I have discussed the risks, benefits and alternatives with the patient who understands and wishes to proceed. documented in this encounter OR Notes * Operative - Hay Cooper DO - 12/13/2022 3:49 PM CDT Images from the original note were not included. Vascular [place] Operative Note [facility] Name: Jules Mitchell Age: [age] year old Sex: male Preoperative diagnosis: End-stage renal disease on hemodialysis Postoperative diagnosis: Same Surgeon: Dr. Cooper Drum Operator: [facility] Staff Procedure: 1. Left upper extremity AV fistulogram 2. Balloon angioplasty of left upper extremity AV fistula venous outflow stenosis using 8 x 40 mm Glascock balloon 3. Balloon angioplasty of SVC and subclavian junction using 8 x 40 and 10 x 40 mm Glascock balloons 4. Removal of left internal jugular vein tunneled hemodialysis catheter. EBL: Minimal Implants: None A total of 25 ml of Isovue 300 contrast was used for the examination. Fluoroscopy exposure was 9.6 milligray and is a cumulative radiation dose. This represents the number of still images and subtracted images obtained and documented for the exam in PACS. 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 All these areas were balloon angioplastied with excellent postprocedure angiographic results. Tunneled hemodialysis catheter was removed without any difficulty. Complications: None Procedure: Patient was marked identified in preoperative holding area. Informed consent was obtained from the patient after explaining risks, benefits alternatives of the procedure. All questions regarding the procedure answered. Patient was taken to the operating placed in supine position on the OR table. Patient's left upper extremity left chest was prepped and draped usual sterile fashion. Time-out was performed confirming correct patient, laterality, procedure. After giving local anesthesia patient's left upper extremity AV graft was accessed using micropuncture needle. Using Seldinger technique a short 7 Bengali sheath inserted the left upper extremity AV fistula. Fistulogram was then performed. Patient was found to have no evidence of inflow stenosis. There was high-grade flow-limiting stenosisat the outflow anastomosis. There was also additional high-grade flow- limiting stenosis at the SVC and subclavian junction. Balloon angioplasty of venous outflow stenosis was performed using 8 x 40 mm Glascock balloon. Post procedure angiographic results showed excellent results and no residual stenos is. Balloon angioplasty of SVC and subclavian junction was performed using 8 x 40 mm Glascock balloon. Balloon angioplasty was then performed using 10 x 40 mm Glascock balloon. Post balloon angioplasty angiographic results showed no residual stenosis at the SVC subclavian junction. Patient was then given local anesthesia at the left IJ tunneled hemodialysis catheter insertion site in the chest. The area around the cuff was given lidocaine for outer dissection. Cuff was freed up using scissors and blunt dissections. Cuff was freed up and catheter was removed without any difficulty. Catheter was inspected and was found to be intact. A completion central venogram was then performed that showed no residual stenosis of the SVC or subclavian junction. There was brisk flow of contrast throughout theleft upper extremity fistula. All catheters and wires were then removed. Manual pressure was held at the access site as well as the PermCath removal site. Hemostasis was ensured sterile dressing was applied the access sites. Patient tolerated the procedure well. There were no complications. Operative findings were discussed with patient and his accompanying Nephew. All questions regarding the procedure answered. Patient was taken recovery room in stable condition. Hay Cooper DO [facility] [employer] Phone: Exchange: [phone] documented in this encounter Plan of Treatment Upcoming Encounters Date Type Department Care Team (Late st Contact Info) Description 08/23/2024 1:00 PM CDT Appointment [facility] Health Vascular Services [address] [place] [address], [address] [place] [address] Mario Iyer MD [address] [place] [address] [address] [place] [address] [place] [id number] [place] [address] [address] [place] [address] Pending Results Name Type Priority Associated Diagnoses Date /Time IR ANGIO AV SHUNT IMAGING Imaging Routine ESRD (end stage renal disease) ([facility]) 12/13/2022 3:48 PM CDT IR CENTRAL LINE REMOVAL Imaging Routine ESRD (end stage renal disease) ([facility]) 12/13/2022 3:48 PM CDT documented as of this encounter Procedures Procedure Name Priority Date/Time Associated Diagnosis Comments CARDIAC RHYTHM STRIP ORDER 12/17/2022 10:43 PM CDT documented in this encounter Results * CARDIAC RHYTHM STRIP ORDER (12/17/2022 10:43 PM CDT) Narrative 12/17/2022 10:43 PM CDT Ordered by an unspecified provider. Scanned Document CARDIAC SERVICES ORD ERABLES documented in this encounter Visit Diagnoses Diagnosis ESRD (end stage renal disease) ([facility]) End stage renal disease documented in this encounter Administered Medications Inactive Administered Medications - up to 3 most recent administrations Medication Order MAR Action Action Date Dose Rate Site 0.9% NaCl infusion at 50 mL/hr, Intravenous, INTRA-PROCEDURE CONTINUOUS, Starting on Fri12/13/22 at 1515, Until 12/14/22 at 0143, Intra-procedure (IR) $ New Bag/Syringe 12/13/2022 4:03 PM CDT 65 mL 50 mL/hr iopamidol (Isovue 300) 61 % contrast Intravenous, INTRA-PROCEDURE MULTIPLE, Starting on Fri12/13/22 at 1504, Until 12/14/22 at 0143, Intra/Post-procedure $ Given - Contrast 12/13/2022 4:03 PM CDT 25 mL lidocaine (Xylocaine PF) 1% injection ADS Med 1 dose, Starting on 12/13/22 at 1514, Until 12/13/22 at 1603, Created by cabinet override lidocaine PF (Xylocaine MPF) 1 % injection Infiltration, INTRA-PROCEDURE MULTIPLE, Starting on Fri12/13/22 at 1504, Until 12/14/22 at 0143, Intra-procedure (IR) $ Given 12/13/2022 4:03 PM CDT 15 mL documented in this encounter Care Teams Farm Agent Relationship Specialty Start Date End Date Kwame Berg MD PCP - General Internal Medicine 01/19/19 [place] [address] [address] Orthopedic Surgery Orthopedic Surgery 10/13/19 documented as of this encounter
--- OUTSIDE RECORDS SUMMARY | 2024-04-25 21:18 | XMS_ITS | Patient Health Summary ---
Author Organization [facility] Address [address] [place] [address] Care Team Providers Care Change Attendant Name Role Phone Kwame Berg MD Primary Care Provider [phone] Dylon Agudelo MD Unavailable [phone] Note from [facility],non-owned Affiliates and Associated Physician Practices is amultiple site organization consisting of ambulatory clinics and hospital sitesin [place], [place], [place] and [place]. This disclosure is being madepursuant to the Care Everywhere program and may not contain all information available regarding this patient. Last updated 18.[facility] Allergies No known active allergies Medications * Be aware that medications may not be up to date on this document. Alwaysverify current medications with the patient. * atorvastatin (LIPITOR) 20 MG tablet(Started 01/19/2019) Take 1 (one) tablet by mouth at bedtime * rOPINIRole (REQUIP) 0.5 MG tablet(Started 06/23/2019) Take 1 (one) tablet by mouth Three times a week * furosemide (LASIX) 80 MG tablet(Started 05/11/2019) Take 1 (one) tablet by mouth 2 times daily * allopurinol (ZYLOPRIM) 100 MG tablet(Started 05/29/2019) Take 1 (one) tablet by mouth once daily * tamsulosin (FLOMAX) 0.4 MG capsule Take 1 (one) capsule by mouth at bedtime At the same time every day after a meal. * sevelamer carbonate (RENVELA) 800 MG Take 1 (one) tablet by mouth 3 times daily with meals * apixaban (ELIQUIS) 2.5 MG tablet(Started 01/19/2020) Take 1 tablet by mouth 2 times daily * levETIRAcetam (KEPPRA) 100 MG/ML oral solution(Started 07/26/2021) Take 5 mL by mouth 2 times daily * dilTIAZem (CARDIZEM) 30 MG tablet(Started 08/24/2021) Take 1 (one) tablet by mouth 3 times daily * folic acid (Folvite) 1 MG tablet(Started 06/04/2022) Take 1 (one) tablet by mouth once daily * calcium carbonate (Tums) 500 MG chew tablet Take 1 (one) tablet by mouth daily with food * acetaminophen (Tylenol) 500 MG tablet(Started 12/13/2022) Take 1 (one) tablet by mouth every 6 hours as needed for Fever or Pain Maximum allowable Acetaminophen amount = 4 Grams (4000 mg) / 24 hours. * polyethylene glycol 3350 (Miralax) 17 GM/SCOOP powder(Started 04/14/2023) MIX 1 SCOOP IN WATER AND DRINK BY MOUTH ONCE A DAY * fluconazole (Diflucan) 100 MG tablet Take 1 (one) tablet by mouth once daily Active Problems Problem Noted Date Diagnosed Date Encounter regarding vascular access for dialysis for end-stage renal disease 05/10/2022 ESRD (end stage renal disease) 10/21/2019 Primary osteoarthritis of left hip 06/29/2019 Immunizations * HEP B VACCINE, ADULT 3 DOSE(Given 09/18/2021, 01/13/2021, 09/21/2020, 08/12/2020, 06/17/2020, 06/17/2019) * INFLUENZA(Given 02/08/2021, 02/03/2020, 01/13/2019, 12/28/2018, 12/27/2018, 03/17/2018) * INFLUENZA VACCINE, HIGH-DOSE, QUADR. (FLUZONE HIGH-DOSE QUADRIVALENT; 65Y+), 0.7 ML (HD-IIV4)(Given 01/19/2020) * PNEUMOCOCCAL PCV, HISTORIC VACCINE(Given 12/25/2021, 08/29/2020, 05/25/2012) Social History Tobacco Use Types Packs/Day Years [...] Mass Index 18.25 02/23/2024 12:19 PM CDT Medical Devices Implanted Type Area Platform Worker Device Identifier Shelf Expiration Date Model / Serial / Lot G7 Aetabular Shell 3 Hole Porous Plasma, Cementless Implanted:Qty: 1 on 01/12/2020 by Dylon Agudelo MD at [facility] Left: Hip [employer] 12/23/2028 [id number] / / [id number] Bone Screw Self Tapping 6.5 Diameter/ 30mm Length Implanted:Qty: 1 on 01/12/2020 by Dylon Agudelo MD at [facility] Left: Hip [employer] 06/25/2029 / / [id number] Bone Screw Self Tapping 6.5mm Diameter/ 20mm Length Implanted:Qty: 1 on 01/12/2020 by Dylon Agudelo MD at [facility] Left: Hip [employer] 01/25/2027 / / [id number] Vivacit E Vitamine Highly Crosslinked Polyethylene Liner Implanted:Qty: 1 on 01/12/2020 by Dylon Agudelo MD at [facility] Left: Hip [employer] 01/26/2024 [id number] / / [id number] Taperlock Complete Micro Primary Femoral Stem 6x97.5 Mm Implanted:Qty: 1 on 01/12/2020 by Dylon Agudelo MD at [facility] Left: Hip [employer] 04/20/2028 [id number] / / [id number] Ceramic Head Implanted:Qty: 1 on 01/12/2020 by Dyoln Agudelo MD at [facility] Left: Hip [employer] 08/16/2029 [id number] / / [id number] Slv Centering -3mm Ofst Tpr Hip Blx D Ty Implanted:Qty: 1 on 01/12/2020 by Dylon Agudelo MD at [facility] Left: Hip [employer] 10/13/2029 [id number] / / [id number] Graft Vasc 4-7mm 40cm Grtx Std Wl Tpr Ln - [id number] Implanted:Qty: 1 on 03/15/2020 by Mario Iyer MD at [facility] Right: Arm [employer] 12/26/2024 [id number] / [id number] / Graft Vasc 4-7mm 45cm Grtx Std Wl Tpr - [id number] Implanted:Qty: 1 on 10/21/2022 by Mario Iyer MD at [facility] Left: Arm [employer] 07/22/2027 [id number] / [id number] / Explanted Type Area Platform Worker Device Identifier Shelf Expiration Date Model / Serial / Lot Bone Screw 6.5 Mm Diameter/ 25mm Length Explanted:Qty: 1 on 01/12/2020 at [facility] Left: Hip [employer] 03/27/2029 / / [id number] Procedures * CARDIAC RHYTHM STRIP ORDER(Performed 02/24/2024) * CARDIAC RHYTHM STRIP ORDER(Performed 11/25/2023) * IR ANGIO AV SHUNT IMAGING(Performed 11/24/2023) Performed for ESRD (end stage renal disease) (HCC) * CARDIAC RHYTHM STRIP ORDER(Performed 08/05/2023) * CARDIAC RHYTHM STRIP ORDER(Performed 04/01/2023) * IR ANGIO AV SHUNT IMAGING(Performed 03/31/2023) Performed for Encounter regarding vascular access for dialysis for end-stage renal disease ([facility]) * CARDIAC RHYTHM STRIP ORDER(Performed 12/17/2022) * NC ANASTOMOSIS,AV,BASILIC VEIN(Performed 10/21/2022) * BASIC METABOLIC PANEL (CALCIUM TOTAL)(Performed 10/21/2022) Performed for Preoperative examination * BLOOD GAS+COOX+ELECTROLYTES+METAB VENOUS(Performed 06/24/2022) * CREATION ARTERIOVENOUS (AV) FISTULA DIRECT(Performed 06/24/2022) * CARDIAC RHYTHM STRIP ORDER(Performed 06/13/2022) * CARDIAC RHYTHM STRIP ORDER(Performed 05/29/2022) * IR CENTRAL LINE REPLACE(Performed 05/29/2022) Performed for Encounter regarding vascular access for dialysis for end-stage renal disease ([facility]) * VAS BILAT MAPPING FOR HEMODIALYSIS(Performed 05/27/2022) Performed for ESRD (end stage renal disease) ([facility]) * IR ANGIO AV SHUNT IMAGING(Performed 05/17/2022) Performed for End stage renal disease ([facility]) * CARDIAC RHYTHM STRIP ORDER(Performed 05/16/2022) * IR ANGIO AV SHUNT IMAGING(Performed 05/13/2022) Performed for Encounter regarding vascular access for dialysis for end-stage renal disease ([facility]) * CARDIAC RHYTHM STRIP ORDER(Performed 01/22/2022) * IR ANGIO AV SHUNT IMAGING(Performed 01/16/2022) Performed for ESRD (end stage renal disease) ([facility]) * CARDIAC RHYTHM STRIP ORDER(Performed 11/01/2021) * IR ANGIO AV SHUNT IMAGING(Performed 10/17/2021) Performed for ESRD (end stage renal disease) ([facility]) * CARDIAC RHYTHM STRIP ORDER(Performed 08/20/2021) * IR ANGIO AV SHUNT IMAGING(Performed 08/15/2021) Performed for Encounter regarding vascular access for dialysis for end-stage renal disease ([facility]) * CARDIAC RHYTHM STRIP ORDER(Performed 04/09/2021) * IR ANGIO AV SHUNT IMAGING(Performed 03/26/2021) Performed for Encounter regarding vascular access for dialysis for end-stage renal disease ([facility]) * CARDIAC RHYTHM STRIP ORDER(Performed 12/22/2020) * IR ANGIO AV SHUNT IMAGING(Performed 12/20/2020) Performed for Mechanical complication of AV shunt, initial encounter ([facility]) * CARDIAC RHYTHM STRIP ORDER(Performed 09/16/2020) * IR ANGIO AV SHUNT IMAGING(Performed 09/13/2020) Performed for Encounter regarding vascular access for dialysis for end-stage renal disease ([facility]) * XR WRIST LEFT 3VW OR MORE(Performed 07/28/2020) Performed for Left forearm pain * XR WRIST RIGHT 3VW OR MORE(Performed 07/07/2020) Performed for Pain and swelling of forearm, right * CARDIAC RHYTHM STRIP ORDER(Performed 06/16/2020) * IR ANGIO AV SHUNT IMAGING(Performed 06/12/2020) Performed for ESRD (end stage renal disease) ([facility]) * CARDIAC RHYTHM STRIP ORDER(Performed 05/12/2020) * IR ANGIO AV SHUNT IMAGING(Performed 05/03/2020) Performed for ESRD (end stage renal disease) ([facility]) * ARTERIOVENOUS FISTULA TRANSPOSITION / SUPERFICIALIZATION(Performed 03/15/2020) * BASIC METABOLIC PANEL (CALCIUM TOTAL)(Performed 03/15/2020) Performed for Preop examination * XR HIP LEFT 2VW OR MORE(Performed 02/11/2020) Performed for Pain of left hip joint * XR ANKLE LEFT 3VW OR MORE(Performed 02/01/2020) * URIC ACID BLOOD(Performed 01/31/2020) * BASIC METABOLIC PANEL (CALCIUM TOTAL)(Performed 01/31/2020) * CBC W/O DIFFERENTIAL(Performed 01/31/2020) * FERRITIN(Performed 01/28/2020) * IRON + TRANSFERRIN PANEL(Performed 01/28/2020) * VITAMIN B12(Performed 01/28/2020) * FOLATE(Performed 01/28/2020) * B-TYPE NATRIURETIC PEPTIDE(Performed 01/28/2020) * BASIC METABOLIC PANEL (CALCIUM TOTAL)(Performed 01/27/2020) * CBC W/O DIFFERENTIAL(Performed 01/27/2020) * POTASSIUM BLOOD(Performed 01/25/2020) * COMPREHENSIVE METABOLIC PANEL(Performed 01/24/2020) * CBC W/O DIFFERENTIAL(Performed 01/24/2020) * CARDIAC RHYTHM STRIP ORDER(Performed 01/21/2020) * BASIC METABOLIC PANEL (CALCIUM TOTAL)(Performed 01/21/2020) * CBC W/O DIFFERENTIAL(Performed 01/21/2020) * RENAL FUNCTION PANEL(Performed 01/20/2020) * RENAL FUNCTION PANEL(Performed 01/19/2020) * TSH REFLEX FREE T4(Performed 01/18/2020) * RENAL FUNCTION PANEL(Performed 01/18/2020) * ECHOCARDIOGRAM 2D WITH DOPPLER(Performed 01/17/2020) Performed for Atrial fibrillation, unspecified type (HCC) * RENAL FUNCTION PANEL(Performed 01/17/2020) * RENAL FUNCTION PANEL(Performed 01/16/2020) * HEMODIALYSIS INPATIENT(Performed 01/15/2020) * GLUCOSE - POINT OF CARE(Performed 01/15/2020) * GLUCOSE - POINT OF CARE(Performed 01/15/2020) * RENAL FUNCTION PANEL(Performed 01/15/2020) * GLUCOSE - POINT OF CARE(Performed 01/14/2020) * GLUCOSE - POINT OF CARE(Performed 01/14/2020) * GLUCOSE - POINT OF CARE(Performed 01/14/2020) * GLUCOSE - POINT OF CARE(Performed 01/14/2020) * RENAL FUNCTION PANEL(Performed 01/14/2020) * POTASSIUM BLOOD(Performed 01/13/2020) * GLUCOSE - POINT OF CARE(Performed 01/13/2020) * HEPATITIS B SURFACE ANTIGEN W RFLX CONFIRMATION(Performed 01/13/2020) Performed for ESRD (end stage renal disease) (HCC) * HEPATITIS B SURFACE ANTIBODY QUANT(Performed 01/13/2020) Performed for ESRD (end stage renal disease) (HCC) * RENAL FUNCTION PANEL(Performed 01/13/2020) Performed for ESRD (end stage renal disease) (HCC) * HEMODIALYSIS INPATIENT(Performed 01/13/2020) Performed for ESRD (end stage renal disease) (HCC) * HGB HCT PANEL(Performed 01/12/2020) * BASIC METABOLIC PANEL (CALCIUM TOTAL)(Performed 01/12/2020) * GLUCOSE - POINT OF CARE(Performed 01/12/2020) * GLUCOSE - POINT OF CARE(Performed 01/12/2020) * NC TOTAL HIP REPLACEMENT(Performed 01/12/2020) * BASIC METABOLIC PANEL (CALCIUM TOTAL)(Performed 01/12/2020) Performed for Preop examination * SARS-COV-2 (COVID-19) IN HOUSE(Performed 01/09/2020) Performed for Preop examination * POTASSIUM BLOOD(Performed 12/27/2019) Performed for Preop examination * GLUCOSE - POINT OF CARE(Performed 12/27/2019) * COMPREHENSIVE METABOLIC PANEL(Performed 12/27/2019) * SARS-COV-2 (COVID-19) IN HOUSE(Performed 12/24/2019) Performed for Preop examination * HEMOGLOBIN A1C(Performed 12/22/2019) Performed for Preop examination * COMPREHENSIVE METABOLIC PANEL(Performed 12/22/2019) Performed for Preop examination * CBC W AUTO DIFFERENTIAL (CANCER CARE)(Performed 12/10/2019) Performed for Anemia, unspecified type * XR HIP LEFT 2VW OR MORE(Performed 11/19/2019) Performed for Primary osteoarthritis of left hip * CREATION ARTERIOVENOUS (AV) FISTULA DIRECT(Performed 10/20/2019) * BASIC METABOLIC PANEL (CALCIUM TOTAL)(Performed 10/20/2019) Performed for Pre-op evaluation * CBC W/O DIFFERENTIAL (CANCER CARE)(Performed 10/13/2019) Performed for Anemia, unspecified type * ERYTHROPOIETIN(Performed 10/13/2019) Performed for Anemia, unspecified type * IRON + TIBC PANEL(Performed 10/13/2019) Performed for Anemia, unspecified type * FERRITIN(Performed 10/13/2019) Performed for Anemia, unspecified type * VITAMIN B12 FOLATE PANEL(Performed 10/13/2019) Performed for Anemia, unspecified type * PROTEIN ELECTRO+FORREST+FREE LIGHT CHAINS(Performed 10/13/2019) Performed for Anemia, unspecified type * VAS BILAT MAPPING FOR HEMODIALYSIS(Performed 10/11/2019) Performed for ESRD (end stage renal disease) (HCC) * XR PELVIS 1 OR 2VW(Performed 06/28/2019) Performed for Pain of left hip joint * CBC W AUTO DIFFERENTIAL(Performed 05/27/2019) * BASIC METABOLIC PANEL (CALCIUM TOTAL)(Performed 05/27/2019) * CBC W AUTO DIFFERENTIAL(Performed 05/26/2019) * RENAL FUNCTION PANEL(Performed 05/26/2019) * XR PELVIS W BILAT HIP 2VW(Performed 05/24/2019) Performed for Pain of both hip joints * CBC W/O DIFFERENTIAL(Performed 05/22/2019) * BASIC METABOLIC PANEL (CALCIUM TOTAL)(Performed 05/22/2019) * BASIC METABOLIC PANEL (CALCIUM TOTAL)(Performed 05/20/2019) * CBC W/O DIFFERENTIAL(Performed 05/18/2019) * BASIC METABOLIC PANEL (CALCIUM TOTAL)(Performed 05/18/2019) * METHYLMALONIC ACID BLOOD(Performed 05/15/2019) * VITAMIN B12(Performed 05/15/2019) * CBC W/O DIFFERENTIAL(Performed 05/15/2019) * BASIC METABOLIC PANEL (CALCIUM TOTAL)(Performed 05/15/2019) * HEPATITIS B SURFACE ANTIGEN W RFLX CONFIRMATION(Performed 05/13/2019) * HEPATIC FUNCTION PANEL(Performed 05/13/2019) * BASIC METABOLIC PANEL (CALCIUM TOTAL)(Performed 05/13/2019) * CBC W/O DIFFERENTIAL(Performed 05/13/2019) * CBC W/O DIFFERENTIAL(Performed 05/12/2019) * BASIC METABOLIC PANEL (CALCIUM TOTAL)(Performed 05/12/2019) Results * CARDIAC RHYTHM STRIP ORDER (02/24/2024 6:15 PM CDT) Only the most recent of17 resultswithin the time period is included. Narrative 02/24/2024 6:15 PM CDT Ordered by an unspecified provider. Scanned Document CARDIAC SERVICES ORD ERABLES * IR ANGIO AV SHUNT IMAGING (11/24/2023 1:41 PM CDT) Only the most recent of12 resultswithin the time period is included. Anatomical Region Laterality Modality Lower Extremity, Upper Extremity, Chest X-Ray Angiography Narrative 11/24/2023 2:21 PM CDT Mario Iyer MD ? 11/24/2023 ??2:26 PM [facility] 1945 DATE OF PROCEDURE: 11/24/2023 ORDERING PHYSICIAN: Mario Iyer MD PROCEDURE: ??Left upper arm AV graft fistulogram with placement of 8 x 5 [id number] endovascular stent at the venous anastomosis. INDICATIONS FOR PROCEDURE: ? Increased pulsatility of left upper arm AV graft with prolonged bleeding at dialysis. DESCRIPTION OF PROCEDURE: ?Once the patient was prepped and draped in the usual sterile fashion he was given 1 percent lidocaine as local anesthetic. ??He tolerated this well. ?? The micropuncture set was used to cannulate the left upper arm AV graft and fistulogram was obtained. ??This looks excellent except for the area just past the venous anastomosis where there was high-grade stenosis. ??The tract was dilated and a 8 Arabic sheath was inserted. ??We used a 6 x 4 balloon angioplasty the area in the left axillary vein and AV graft venous anastomosis. ??Once this was completed, we then inserted the 8 x 5 endovascular stent across the area. ??Stent was released and this was followed by an 8 x 4 balloon for angioplasty. ??Completion angiography looked excellent. ??Patient tolerated the procedure well was found to be stable postoperatively. ??Preoperatively the patient understood the risks of procedure be bleeding and infection want to proceed. During the procedure we used 45 cc of Isovue and 7.0 mGy. DICTATED BY: ??Mario Iyer M.D./isacc Interventional Post-Operative/Procedure Notes Surgeon: ? Mario Iyer MD Pre Procedure Diagnosis: ?? ESRD Post Procedure Diagnosis: ?? ESRD Anesthesia: ? Local 1% lidocaine and IV sedation Disposition: ? OPS Status: ? Stable Drain or Pack: ?None Additional Information/Complications: None Estimated Blood Loss: ?? Negligible Specimen: ? None Mario Iyer MD IR ORDERABLES * (ABNORMAL) BASIC METABOLIC PANEL (CALCIUM TOTAL) (10/21/2022 6:59 AM CDT) Only the most recent of15 resultswithin the time period is included. Glucose 101 70 - 105 mg/dL 10/21/2022 7:15 AM CDT [facility] Sodium 140 136 - 145 mmol/L 10/21/2022 7:15 AM CDT [facility] Potassium 5.3(H) 3.5 - 5.1 mmol/L 10/21/2022 7:15 AM CDT [facility] Chloride 100 98 - 107 mmol/L 10/21/2022 7:15 AM CDT [facility] CO2 27 23 - 31 mmol/L 10/21/2022 7:15 AM CDT [facility] Calcium 9.4 8.4 - 10.4 mg/dL 10/21/2022 7:15 AM CDT [facility] Anion Gap 13 8 - 18 mmol/L 10/21/2022 7:15 AM CDT [facility] BUN 38(H) 8.4 - 25.7 mg/dL 10/21/2022 7:15 AM CDT [facility] Creatinine 7.70(H) 0.72 - 1.25 mg/dL 10/21/2022 7:15 AM CDT [facility] eGFR by CKD-EPI 7(L) >=90 mL/min/1.7 3 m2 10/21/2022 7:15 AM CDT [facility] Blood BLOOD SPECIMEN / Unknown Venipuncture / Unknown 10/21/2022 6:59 AM CDT 10/21/2022 7:01 AM CDT Megan Ca DO LAB - CHEMISTRY [facility] [address] [place] [address] * (ABNORMAL) BLOOD GAS+COOX+ELECTROLYTES+METAB VENOUS (06/24/2022 7:48 AM [employer]WORK[employer]T SANDER) pH Venous 7.44(H) 7.32 - 7.42 pH 06/24/2022 7:48 AM [employer]WORK[employer] pO2 Venous 43(H) 35 - 40 mmHg 06/24/2022 7:48 AM [employer] pCO2 Venous 48 40 - 50 mmHg 06/24/2022 7:48 AM [employer] HCO3 Venous 32.6(H) 24 - 26 mmol/L 06/24/2022 7:48 AM [employer] Base Excess Venous 7.5(H) -2.0 - 2.0 mmol/L 06/24/2022 7:48 AM [employer]WORK[employer] Oxyhemoglobin Venous 70.6 % 05/30 7:48 AM [employer]WORK[employer] Deoxyhemoglobin (HHB) Venous % 27.4 % 06/24/2022 7:48 AM [employer] Methemoglobin <0.8 0.0 - 2.0 % 06/24/2022 7:48 AM [employer] [facility] Carboxyhemoglobin 2.0 0.0 - 2.0 % 06/24/2022 7:48 AM [employer]WORK[employer] [facility] O2 Content Venous 9.5 ml/dL 023 7:48 AM [employer] [facility] Hemoglobin by COOX 9.5(L) 12.0 - 17.6 g/dL 06/24/2022 7:48 AM [employer]WORK[employer] O2 Saturation Venous 72 >=70 % 05/30 7:48 AM [employer] Sodium Whole Blood 138 135 - 145 mmol/L 06/24/2022 7:48 AM [employer] [facility] Potassium Whole Blood 4.8 3.5 - 5.5 mmol/L 06/24/2022 7:48 AM [employer] [facility] Chloride WB 97(L) 101 - 111 mmol/L 06/24/2022 7:48 AM [employer]WORK[employer] Calcium Ionized 1.08 mmol/L 7:48 AM [employer] [facility] Ionized Calcium pH Adjusted 1.10(L) 1.19 - 1.34 mmol/L 06/24/2022 7:48 AM [employer] [facility] Anion Gap (AG) Arterial 13 8 - 18 mmol/L 06/24/2022 7:48 AM [employer] [facility] Glucose WB 90 70 - 105 mg/dL 06/24/2022 7:48 AM [employer] [facility] Lactic Acid Whole Blood 1.0 <=2.0 mmol/L 06/24/2022 7:48 AM [employer] [facility] Blood BLOOD SPECIMEN / Unknown 06/24/2022 7:48 AM [employer] SANDER 06/24/2022 7:48 AM [employer]WORK[employer] BEL[employer] SANDER Narrative [facility] - 06/24/2022 7:48 AM [employer] Test performed by a Licensed Healthcare Provider Mario Iyer MD LAB - BLOOD GASES ORDERABLES Performing Organization Address City/State/[facility] Co de Phone Number [facility] [address] [phone] * IR CENTRAL LINE REPLACE (05/29/2022 2:49 PM [employer]WORK[employer] BELT SANDER) Anatomical Region Laterality Modality X-Ray Angiograph y Narrative 05/29/2022 2:53 PM [employer] Tyshawn Heller MD ? 05/29/2022 ??2:56 PM Surgeon: Tyshawn Heller MD Pre-Procedure diagnosis: ESRD Time out and final pre-procedure assessment completed immediately prior to start of procedure. Medications reviewed. Post-Procedure diagnosis: Same Anesthesia: Local Technical Procedure Performed: ??Fluoroscopic guided tunneled left IJ hemodialysis catheter repositioning Findings: ??After informed consent was obtained the patient was placed supine on the angiogram table in the left upper chest around the existing catheter site was prepped and draped in the usual sterile fashion anesthesia was obtained with lidocaine. ?? Fluoroscopic evaluation of the catheter demonstrated no kinking in the supraclavicular region. ??The catheter tip in appear to be deep within the right atrium. ??The catheter was pulled back where the tip was located now in the proximal to mid right atrium and the arterial port was erected medially. ??Both lumens of the catheter easily aspirated and flushed using a large syringe. ?? Therefore catheter exchange was not needed. ??Both lumens were appropriately packed with heparin and the catheter was secured to the patient using 2 0 Prolene sutures. ??Patient tolerated the procedure well. ?? Radiation exposure 2.1 mGy Disposition: Home Status: Stable Drain or Pack: None Additional information/Complications: None Estimated blood loss: negligible Specimen(s) removed: No Specimen Tyshawn Heller MD IR ORDERABLES * VAS BILAT MAPPING FOR HEMODIALYSIS (05/27/2022 2:39 PM [employer]WORK[employer] BELT SANDER) Only the most recent of2 resultswithin the time period is included. Anatomical Region Laterality Modality Lower Extremity, Upper Extremity Ultrasound 05/27/2022 2:15 PM [employer] SANDER Narrative Procedure Note Mario Iyer MD - 05/27/2022 [facility] [place] [address], [address] [place] [address] Vessel Mapping for Hemodialysis Report Pat.Name: JULES RASMUSSEN Pat.ID: [id number] St.Date: 05/27/2022 Exam Time: 2:15:00 PM Study Type:Vessel Mapping for Hemodialysis Age: 2 1945,76Y Sex: MALE Sonogrphr: [facility] RVT Pat. Stat.:Outpatient CPT - 4: 31247 Reason for Study: End Stage Renal Disease Procedures: Vessel Mapping for Hemodialysis Race: 2 Visit ID: [id number] ++++++++++++++++++++++++++++++++++++ SUMMARY: ++++++++++++++++++++++++++++++++++++ Patent left arm veins for AV graft. ++++++++++++++++++++++++++++++++++++ FINDINGS: ++++++++++++++++++++++++++++++++++++ Procedure: Duplex vein mapping was carried out in both upper extremities. Study Quality: This study is of adequate technical quality. Mapping Rt: The right cephalic vein is not patent and compressible. There is a right upper clotted AVG with a stent with the axilla. Mapping Lt: The left cephalic is clotted at the antecubital fossa and the left basilic vein is small. The basilic vein in the axilla measured .45 cm and the axillary vein measured .46 cm. Signed 05/27/2022 04:01 PM Mario Iyer MD Mario Iyer MD VASCULAR LAB ORDER SANDER * XR WRIST LEFT 3VW OR MORE (07/28/2020 9:21 AM CDT) Anatomical Region Laterality Modality Wrist / Hand Radiographic Cathy ging 07/28/2020 2:26 PM CDT Narrative 07/28/2020 2:27 PM CDT 3 views left wrist Indication: Left wrist pain Findings: There is no displaced fracture or dislocation. There is severe radiocarpal joint space narrowing, subchondral sclerosis, hypertrophic spurring and degenerative subcortical cyst formation. There is no scapholunate or lunotriquetral ligamentous disruption. There is significant intraosseous degenerative cysts present throughout the carpal bones along with intercarpal joint space narrowing and hypertrophic spurring. There is basilar joint space narrowing. *Reading Radiologist: Osmany Rouse on 07/28/2020 at 2:27 PM Procedure Note Osmany Rouse MD - 07/28/2020 3 views left wrist Indication: Left wrist pain Findings: There is no displaced fracture or dislocation. There is severe radiocarpal joint space narrowing, subchondral sclerosis, hypertrophic spurring and degenerative subcortical cyst formation. There is no scapholunate or lunotriquetral ligamentous disruption. There is significant intraosseous degenerative cysts present throughout the carpal bones along with intercarpal joint space narrowing and hypertrophic spurring. There is basilar joint space narrowing. *Reading Radiologist: Osmany Rouse on 07/28/2020 at 2:27 PM Sim Pastor MD DIAGNOSTIC IMAGING O RDERABLES * XR WRIST RIGHT 3VW OR MORE (07/07/2020 9:03 AM STONEWORKING BELT SANDER) Anatomical Region Laterality Modality Wrist / Hand Radiographic Cathy ging 07/07/2020 3:01 PM STONEWORKING BELT SANDER Impressions 07/07/2020 3:02 PM STONEWORKING BELT SANDER Polyarticular, multifocal erosions, degenerative narrowing and collapse of the carpal row. 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 There is collapse of the scapholunate interval. Erosions are seen throughout the carpal row. There is soft tissue swelling. 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 There is collapse of the scapholunate interval. Erosions are seen throughout the carpal row. There is soft tissue swelling. IMPRESSION Polyarticular, multifocal erosions, degenerative narrowing and collapse of the carpal row. *Reading Radiologist: Flores Crenshaw on 07/07/2020 at 3:02 PM Sim Pastor MD DIAGNOSTIC IMAGING O RDERABLES * XR HIP LEFT 2VW OR MORE (02/11/2020 9:38 AM CDT) Only the most recent of2 resultswithin the time period is included. Anatomical Region Laterality Modality Pelvis, Lower Extremity Computed Radiography Narrative 02/11/2020 9:40 AM CDT Debi Tapia, RT(R) ? 02/15/2020 ??6:37 PM See progress notes for results Dylon Agudelo MD DIAGNOSTIC IMAGING O RDERABLES * XR ANKLE LEFT 3VW OR MORE (02/01/2020 2:33 PM CDT) Anatomical Region Laterality Modality Lower Extremity Radiographic Cathy ging 02/01/2020 4:03 PM CDT Narrative 02/01/2020 4:04 PM CDT Left Ankle 3 Views INDICATION: Left ankle pain nontraumatic Findings: No fracture or malalignment. Ankle mortise preserved. Healed mid to distal left fibular fracture. *Reading Radiologist: Randy Dillon on 02/01/2020 at 4:04 PM Procedure Note Randy Dillon MD - 02/01/2020 Left Ankle 3 Views INDICATION: Left ankle pain nontraumatic Findings: No fracture or malalignment. Ankle mortise preserved. Healed mid to distal left fibular fracture. *Reading Radiologist: Randy Dillon on 02/01/2020 at 4:04 PM Manoj Morrison APRN-FUEL CELL BUILDER DIAGNOSTIC IMAGIN G ORDERABLES * (ABNORMAL) URIC ACID BLOOD (01/31/2020 5:00 AM CDT) Uric Acid 3.3(L) 3.5 - 7.2 mg/dL 01/31/2020 1:13 PM CDT [facility] Blood BLOOD SPECIMEN / Unknown Venipuncture / Unknown 01/31/2020 5:00 AM CDT 01/31/2020 7:11 AM CDT Manoj Morrison APRN-FUEL CELL BUILDER LAB - CHEMISTRY O RDERABLES [facility] [address] [place] [address] * (ABNORMAL) CBC W/O DIFFERENTIAL (01/31/2020 5:00 AM CDT) Only the most recent of9 resultswithin the time period is included. WBC 4.6 4.4 - 10.7 x10E9/L 01/31/2020 7:25 AM CDT [facility] RBC 2.30(L) 3.80 - 5.40 x10E12/L 01/31/2020 7:25 AM CDT [facility] Hemoglobin 7.8(L) 12.0 - 17.6 gm/dL 01/31/2020 7:25 AM CDT [facility] Hematocrit 24.1(L) 35.2 - 51.7 % 01/31/2020 7:25 AM CDT [facility] MCV 104.8(H) 80.7 - 98.3 fl 01/31/2020 7:25 AM CDT [facility] MCH 33.9 26.7 - 34.0 pg 01/31/2020 7:25 AM CDT [facility] MCHC 32.4 30.8 - 35.9 gm/dL 01/31/2020 7:25 AM CDT [facility] Platelet Count 236 153 - 416 x10E9/L 01/31/2020 7:25 AM CDT [facility] RDW-CV 12.1 12.1 - 14.9 % 01/31/2020 7:25 AM CDT [facility] MPV 9.5 9.4 - 12.9 fl 01/31/2020 7:25 AM CDT [facility] Blood BLOOD SPECIMEN / Unknown Venipuncture / Unknown 01/31/2020 5:00 AM CDT 01/31/2020 7:11 AM CDT Gabriel Magaña MD LAB - HEMATOLOGY OR DERABLES [facility] [address] [place] [address] * B-TYPE NATRIURETIC PEPTIDE (01/28/2020 4:00 AM CDT) BNP 36 <=100 pg/mL 01/28/2020 6:53 AM CDT [facility] Blood BLOOD SPECIMEN / Unknown 01/28/2020 4:00 AM CDT 01/28/2020 6:22 AM CDT Denice Edgar ANIMAL TRAPPER-FUEL CELL BUILDER LAB - CHEMISTR Y ORDERABLES Performing Organization Address [facility] Co de Phone Number [facility] [address] [place] [phone] * FOLATE (01/28/2020 4:00 AM CDT) Folate 12.2 7.0 - 31.4 ng/mL 01/28/2020 7:30 AM CDT [facility] Blood BLOOD SPECIMEN / Unknown 01/28/2020 4:00 AM CDT 01/28/2020 6:22 AM CDT Denice Edgar ANIMAL TRAPPER-FUEL CELL BUILDER LAB - CHEMISTR Y ORDERABLES Performing Organization Address [facility] de Phone Number [facility] [address] [place] [address] * VITAMIN B12 (01/28/2020 4:00 AM CDT) Only the most recent of2 resultswithin the time period is included. Vitamin B12 419 213 - 816 pg/mL 01/28/2020 7:21 AM CDT [facility] Blood BLOOD SPECIMEN / Unknown 01/28/2020 4:00 AM CDT 01/28/2020 6:22 AM CDT Denice Edgar ANIMAL TRAPPER-FUEL CELL BUILDER LAB - CHEMISTR Y ORDERABLES Performing Organization Address [facility] de Phone Number [facility] [id number] [phone] * (ABNORMAL) IRON + TRANSFERRIN PANEL (01/28/2020 4:00 AM CDT) Iron 47(L) 65 - 175 ug/dL 01/28/2020 7:01 AM CDT [facility] Transferrin 125(L) 163 - 344 mg/dL 01/28/2020 7:01 AM CDT [facility] TIBC Calculated 156(L) 240 - 450 ug/dL 01/28/2020 7:01 AM CDT [facility] Iron Saturation % 30 20 - 50 % 01/28/2020 7:01 AM CDT [facility] Blood BLOOD SPECIMEN / Unknown 01/28/2020 4:00 AM CDT 01/28/2020 6:22 AM CDT Denice Edgar [facility] - CHEMISTR Y ORDERABLES Performing Organization Address [facility] Co de Phone Number [facility] [id number] [place] [phone] * (ABNORMAL) FERRITIN (01/28/2020 4:00 AM CDT) Only the most recent of2 resultswithin the time period is included. Ferritin 4,204(H) 22 - 275 ng/mL 01/28/2020 7:46 AM CDT [facility] Blood BLOOD SPECIMEN / Unknown 01/28/2020 4:00 AM CDT 01/28/2020 6:22 AM CDT Soniyaeddie Reeserobysonido [facility] LAB - CHEMISTR Y ORDERABLES Performing Organization Address [facility] de Phone Number [facility] [address] [place] [phone] * (ABNORMAL) POTASSIUM BLOOD (01/25/2020 12:18 PM CDT) Only the most recent of3 resultswithin the time period is included. Potassium 5.3(H) 3.5 - 5.1 mmol/L 01/25/2020 2:30 PM CDT [facility] Blood BLOOD SPECIMEN / Unknown 01/25/2020 12:18 PM CDT 01/25/2020 2:16 PM CDT Naveen Blackman MD LAB - CHEMISTRY DELFINO VIDAL Performing Organization Address [facility] Co de Phone Number [facility] [id number] [place] [phone] * (ABNORMAL) COMPREHENSIVE METABOLIC PANEL (01/24/2020 3:33 AM CDT) Only the most recent of3 resultswithin the time period is included. Glucose 96 70 - 105 mg/dL 01/24/2020 8:02 AM [facility] Sodium 136 136 - 145 mmol/L 01/24/2020 8:02 AM [facility] Potassium 4.8 3.5 - 5.1 mmol/L 01/24/2020 8:02 AM [facility] Chloride 98 98 - 107 mmol/L 01/24/2020 8:02 AM [facility] CO2 28 23 - 31 mmol/L 01/24/2020 8:02 AM [facility] Calcium 8.8 8.4 - 10.4 mg/dL 01/24/2020 8:02 AM [facility] Anion Gap 10 8 - 16 mmol/L 01/24/2020 8:02 AM [facility] BUN 32(H) 8.4 - 25.7 mg/dL 01/24/2020 8:02 AM [facility] Creatinine 5.84(H) 0.72 - 1.25 mg/dL 01/24/2020 8:02 AM [facility] Alkaline Phosphatase 66 40 - 150 U/L 01/24/2020 8:02 AM [facility] ALT 11 0 - 61 U/L 01/24/2020 8:02 AM [facility] AST 17 5 - 34 U/L 01/24/2020 8:02 AM [facility] Protein Total 6.5 6.4 - 8.3 gm/dL 01/24/2020 8:02 AM [facility] Albumin 3.5 3.2 - 4.6 gm/dL 01/24/2020 8:02 AM [facility] Bilirubin Total 0.3 0.2 - 1.2 mg/dL 01/24/2020 8:02 AM [facility] eGFR by MDRD 10 mL/min/1.7 3m2 01/24/2020 8:02 AM [facility] eGFR by MDRD 12 mL/min/1.7 3m2 01/24/2020 8:02 AM [facility] Blood BLOOD SPECIMEN / Unknown 01/24/2020 3:33 AM CDT 01/24/2020 6:52 AM T Robbin Brown ANIMAL TRAPPER-FUEL CELL BUILDER LAB - CHEMISTRY O RDERABLES Performing Organization Address [facility]/ZIP Co de Phone Number [facility] [address] [place] [address] * (ABNORMAL) RENAL FUNCTION PANEL (01/20/2020 4:45 AM CDT) Only the most recent of9 resultswithin the time period is included. Glucose 125(H) 70 - 105 mg/dL 01/20/2020 6:10 AM CDT [facility] Sodium 136 136 - 145 mmol/L 01/20/2020 6:10 AM CDT [facility] Potassium 4.3 3.5 - 5.1 mmol/L 01/20/2020 6:10 AM CDT [facility] Chloride 98 98 - 107 mmol/L 01/20/2020 6:10 AM CDT [facility] CO2 26 23 - 31 mmol/L 01/20/2020 6:10 AM CDT [facility] Calcium 8.8 8.4 - 10.4 mg/dL 01/20/2020 6:10 AM CDT [facility] Anion Gap 12 8 - 16 mmol/L 01/20/2020 6:10 AM CDT [facility] BUN 57(H) 8.4 - 25.7 mg/dL 01/20/2020 6:10 AM CDT [facility] Creatinine 6.54(H) 0.72 - 1.25 mg/dL 01/20/2020 6:10 AM CDT [facility] Albumin 3.4 3.2 - 4.6 gm/dL 01/20/2020 6:10 AM CDT [facility] Phosphorus 3.4 2.3 - 4.7 mg/dL 01/20/2020 6:10 AM CDT [facility] eGFR by MDRD 8 mL/min/1.7 3m2 01/20/2020 6:10 AM CDT [facility] eGFR by MDRD 10 mL/min/1.7 3m2 01/20/2020 6:10 AM T [facility] Blood BLOOD SPECIMEN / Unknown Venipuncture / Unknown 01/20/2020 4:45 AM CDT 01/20/2020 5:36 AM CDT Naveen Blackman MD LAB - CHEMISTRY DELFINO VIDAL Performing Organization Address City/[facility]/ZIP Co de Phone Number [facility] [address] [place] [address] * TSH REFLEX FREE T4 (01/18/2020 3:07 AM CDT) TSH 0.392 0.350 - 4.940 uIU/mL 01/18/2020 4:29 AM CDT [facility] Blood BLOOD SPECIMEN / Unknown Venipuncture / Unknown 01/18/2020 3:07 AM CDT 01/18/2020 3:41 AM CDT Darwin Ridely MD LAB - CHEMISTRY ORDE MARCY Performing Organization Address [facility] Co de Phone Number [facility] [address] [place] [phone] * ECHOCARDIOGRAM 2D WITH DOPPLER (01/17/2020 8:30 AM CDT) 01/17/2020 8:30 AM CDT Narrative Procedure Note Lorenzo Quintero MD - 01/19/[address] [place] [address] Echocardiography Examination Transthoracic Name: JULES RASMUSSEN [facility]#: MR#: [id number] Admission Number: [id number] Study Date: 01/19/2020 Study Time: 09:11 AM Date Of : 1945 Age: 74 years Height: 62 in. (157.5 cm) Weight: 138.01 lbs. (62.60 kg) BSA: 1.63 m2 Gender: Male Blood Pressure: 147 mmHg / 51 mmHg Heart Rate: 80 bpm Exam Details Procedure Ordered: ECHOCARDIOGRAM 2D W/DOPPLER Procedure Components: Complete 2D, M-mode, complete spectral Doppler, color Doppler Procedure Status: Routine study Facility Location: [facility] Indication: Atrial Fibrillation Procedure Medical Director/Head Team Physician: Pavel Pimentel RDCS Ordering Provider: Kwame Berg MD Reading Physician: Lorenzo Quintero MD Ordering Provider: Mana Oliva MD Reading Group: [facility] Conclusions Left Ventricle: ? ? Left ventricle is normal in size. ? ? Normal global systolic left ventricular function. ? ? EF 60 %. ? ? Left ventricle wall thickness is at the upper limits of normal. ? ? There are no regional wall motion abnormalities. ? ? Doppler parameters are consistent with abnormal left ventricular relaxation (Grade 1 diastolic dysfunction). Follow up: Findings Left Ventricle: Left ventricle is normal in size. Normal global systolic left ventricular function. EF evaluated by biplane method of disks. Patient: JULES RASMUSSEN Study Date: 01/19/2020 09:11 AM Page 1 of 3 EF 60 %. Left ventricle wall thickness is at the upper limits of normal. There are no regional wall motion abnormalities. Doppler parameters are consistent with abnormal left ventricular relaxation (Grade 1 diastolic dysfunction). Right Ventricle: Normal size right ventricle. Right ventricular wall thickness is normal. Right ventricular systolic function is normal. Pulmonary artery pressure normal. Left Atrium: The left atrium is normal in size. Right Atrium: The right atrium is normal in size. Mitral Valve: Mitral leaflets exhibit normal cuspal separation. No mitral regurgitation. No mitral valve stenosis. Aortic Valve: Aortic leaflets exhibit normal cuspal separation. No aortic valve regurgitation. There is no aortic stenosis. Tricuspid Valve: Tricuspid valve leaflets are normal. No tricuspid regurgitation. No tricuspid valve stenosis. Pulmonic Valve: Pulmonic leaflets exhibit normal cuspal separation. No pulmonic valve regurgitation is evident. There is no pulmonic valve stenosis. Aorta: The aorta is normal. No dilation of the ascending aorta. The aortic root exhibits normal size. Great Vessels: IVC: The inferior vena cava is normal in size and course. Pericardium: The pericardium is normal in appearance. No pericardial effusion. Clinical Data Comment: Hx of CVA; ESRD; CKD; cancer; HTN; high cholesterol Measurements Anatomy Label Value Normal Value Aorta AoRoot, MM 3.8 cm (2.2cm - 3.7cm) Aortic Valve AV Vmean 0.86 m/s Aortic Valve AV VTI 24.81 cm Aortic Valve AV PGmax 7 mmHg Aortic Valve AV PGmean 3 mmHg Aortic Valve AV Vmax, Curve 1.29 m/s (1m/s - 1.7m/s) Aortic Valve LVOT VTI / AV VTI 0.9 Aortic Valve LANDON D (continuity eq. VTI) 2.8 cm?? Aortic Valve LANDON Index (continuity 1.72 cm??/m?? eq.Vmax) Aortic Valve AV Opening, MM 1.9 cm Aortic Valve LVOT Vmax / AV Vmax 0.89 Interventricular septum IVSd, 2D 1.2 cm (0.6cm - 1.1cm) Left Atrium LADs, MM 3.2 cm (3cm - 4cm) Left Atrium LA/AO Ratio, MM 0.86 Left Ventricle LVOT Vmax 1.15 m/s (0.7m/s - 1.1m/s) Left Ventricle LVOTd 2 cm (1.9cm - 2.1cm) Left Ventricle LVOT VTI 22.35 cm (18cm - 22cm) Left Ventricle LVOT PGmax 5 mmHg Left Ventricle LVEF visual 60 % (55% - 75%) Patient: JULES RASMUSSEN Study Date: 01/19/2020 09:11 AM Page 2 of 3 Left Ventricle LVDd, 2D 3.9 cm (4.2cm - 5.9cm) Left Ventricle LVDs, 2D 2.7 cm (2.2cm - 3.5cm) Left Ventricle LVPWd, 2D 1.3 cm (0.6cm - 1cm) Left Ventricle FS, 2D 30.77 % Left Ventricle LVEDV, BP 30 ml (67ml - 155ml) Left Ventricle LVESV, BP 11 ml (22ml - 58ml) Left Ventricle LVEDV Index, BP 18.4 ml/m?? (35ml/m?? - 75ml/m??) Left Ventricle LVESV Index, BP 6.7 ml/m?? (12ml/m?? - 30ml/m??) Left Ventricle LVOT PGmean 3 mmHg Left Ventricle LVOT Vmean 0.76 m/s Left Ventricle Diastolic MV E Vmax 0.55 m/s Function Left Ventricle Diastolic MV A Vmax 0.72 m/s Function Left Ventricle Diastolic MV E/A 0.76 Function Left Ventricle Diastolic MV DT 300 ms Function Mitral Valve MV Dec [place] 1.84 m/s?? Pulmonic Valve PV PGmax 9 mmHg Pulmonic Valve PV Vmax, [place] 1.51 m/s (0.6m/s - 0.9m/s) (No Signature Object) Patient: JULES RASMUSSEN Study Date: 01/19/2020 09:11 AM Page 3 of 3 Kwame Berg MD ECHO ORDERABLES Performing Organization Address [facility] Co de Phone Number [facility] * GLUCOSE - POINT OF CARE (01/15/2020 11:34 AM CDT) Only the most recent of10 resultswithin the time period is included. Pathologist [facility] Glucose WB/POC 99 70 - 106 mg/dL 01/16/2020 7:24 AM CDT [facility] Specimen Type Arterial/C apillary 01/16/2020 7:24 AM CDT [facility] Blood BLOOD SPECIMEN / Unknown 01/15/2020 11:34 AM CDT 01/16/2020 7:24 AM CDT Dylon Agudelo MD LAB - POINT OF CARE ORDERABLES Performing Organization Address [facility] Co de Phone Number [facility] [address] [place] [address] * HEPATITIS B SURFACE ANTIBODY QUANT (01/13/2020 8:34 AM CDT) Pathologist [facility] Hepatitis B Virus Surface Antibody Quantitative 0.24 0.00 - 7.99 mIU/ml 01/13/2020 3:27 PM CDT [facility] HBsAb Non Reactive Non Reactive 01/13/2020 3:27 PM CDT [facility] Blood BLOOD SPECIMEN / Unknown 01/13/2020 8:34 AM CDT 01/13/2020 8:34 AM CDT Narrative [facility] - 01/13/2020 3:27 PM CDT Individual is considered not immune to HBV infection Naveen Blackman MD LAB - SEROLOGY ORDER SANDER Performing Organization Address City/[facility] Co de Phone Number [facility] [address] [place] [address] * HEPATITIS B SURFACE ANTIGEN W RFLX CONFIRMATION (01/13/2020 8:34 AM CDT) Only the most recent of2 resultswithin the time period is included. Pathologist [facility] HBsAg Non Reactive Non Reactive 01/13/2020 9:32 AM CDT [facility] Blood BLOOD SPECIMEN / Unknown 01/13/2020 8:34 AM CDT 01/13/2020 8:34 AM CDT Naveen Blackman MD LAB - CHEMISTRY DELFINO VIDAL Performing Organization Address [facility] Co de Phone Number [facility] [address] [place] [address] * (ABNORMAL) HGB HCT PANEL (01/12/2020 11:08 PM CDT) Pathologist [facility] Hemoglobin 10.0(L) 12.0 - 17.6 gm/dL 01/12/2020 11:40 PM CDT [facility] Hematocrit 32.1(L) 35.2 - 51.7 % 01/12/2020 11:40 PM CDT [facility] Blood BLOOD SPECIMEN / Unknown Venipuncture / Unknown 01/12/2020 11:08 PM CDT 01/12/2020 11:32 PM CDT Dylon Agudelo MD LAB - HEMATOLOGY ORD TESSIE Performing Organization Address [facility] Co de Phone Number [facility] [address] [place] [address] * SARS-COV-2 (COVID-19) PRE-SURGICAL/PROCEDURE (01/09/2020 2:00 PM CDT) Only the most recent of2 resultswithin the time period is included. Pathologist [facility] COVID-19 PCR Not detected Not detected, Invalid 01/10/2020 2:07 PM CDT [facility] Microbiology SPECIMEN FROM NASOPHARYNGEAL STRUCTURE / Unknown Collection / Unknown 01/09/2020 2:00 PM CDT 01/09/2020 7:26 PM CDT Narrative [facility] - 01/10/2020 2:07 PM CDT This Real Time RT-PCR assay was developed and its performance characteristics determined by [facility]. This test has been authorized by the Food and Drug administration (FDA)under an Emergency Use Authorization (EUA). This test has been validated in accordance with the FDA's guidance document Policy for Diagnostic Testing in Laboratories Certified to perform High Complexity Testing under CLIA prior to Emergency Use Authorization for Coronavirus Disease-2019 during the Public Health Emergency issued on June 26, 2019. FDA independent review of this validation is pending. This test is only authorized for the duration of time the declaration that circumstances exist justifying the authorization of emergency use of in vitro diagnostic tests for detection of SARS-CoV-2 virus and/or diagnosis of COVID-19 infection under section 564(b)(1) of the Act, 21 U.S.C 360bbb-3 (b)(1), unless the authorization is terminated or revoked sooner. Dylon Agudelo MD LAB - MICROBIOLOGY O RDERABLES [facility] [address] [place] [address], [facility] [phone] * HEMOGLOBIN A1C (12/22/2019 9:48 AM CDT) Pathologist [facility] Hemoglobin A1c 5.0 4.2 - 5.6 % 12/22/2019 10:09 AM CDT [facility] Estimated Average Glucose 97 mg/dL 12/22/2019 10:09 AM CDT [facility] Blood BLOOD SPECIMEN / Unknown Venipuncture / Unknown 12/22/2019 9:48 AM CDT 12/22/2019 9:53 AM CDT Narrative [facility] - 12/22/2019 10:09 AM CDT The following cutoff levels are recommended by [place] [employer]. ?? A1c ??> 6.5% : considered as diabetes if two separate tests >6.5% or in an appropriate clinical setting. A1c ??5.7% - 6.4% : considered as prediabetes (suggest increased risk for diabetes and cardiovascular disease) Control target level: ??Should be individualized. ??< 7 ??for general (non- ) , ??< 8% less stringent goal, ??< 6.5 ??more stringent goal. Hemoglobin A1c measurements are used as an aid in the diagnosis of diabetic mellitus, as an aid to identify patients who may be at the risk for developing diabetic mellitus, and for the monitoring long-term blood glucose control in individuals with diabetes mellitus. ??This test should not replace glucose testing for patients with Type 1 diabetes, pediatric patients, or women. ??Falsely low HbA1c results may be observed in patients with clinical conditions that shorten erythrocyte life span or decrease mean erythrocyte age such as the presence of unstable hemoglobin variants, elevated hemoglobin F level ??or other causes of hemolytic anemia . ??HbA1c may not accurately reflect glycemic control when clinical conditions that affect erythrocyte survival are present. ??Severe Iron deficiency anemia may yield falsely high results. ??Hemoglobin A1c assay should not be used to diagnose or monitor diabetes in patients with malignancy, recent blood transfusion, chronic kidney or liver disease. ?? This method may yield falsely low results when hemoglobin (HbF) exceeds 5% in the specimen. Abigail Rueda APRN-FUEL CELL BUILDER LAB - CHEM ISTRY ORDERABLES [facility] [address] [place] [address] * (ABNORMAL) CBC W AUTO DIFFERENTIAL (CANCER CARE) (12/10/2019 10:49 AM CDT) WBC 4.0(L) 4.4 - 10.7 x10E9/L 12/10/2019 10:56 AM CDT [facility] Neutrophils % 47.8 44.0 - 73.0 % 12/10/2019 10:56 AM CDT [facility] Lymphocytes % 30.8 20.0 - 43.0 % 12/10/2019 10:56 AM CDT [facility] Monocytes % 15.2(H) 5.0 - 13.0 % 12/10/2019 10:56 AM CDT [facility] Eosinophils % 5.7 0.0 - 6.0 % 12/10/2019 10:56 AM CDT [facility] Basophils % 0.5 0.0 - 2.0 % 12/10/2019 10:56 AM CDT [facility] Neutrophil Absolute 1.92(L) 2.01 - 7.14 x10E9/L 12/10/2019 10:56 AM CDT [facility] Lymphocytes Absolute 1.24 1.07 - 3.94 x10E9/L 12/10/2019 10:56 AM CDT [facility] Monocytes Absolute 0.61 0.26 - 1.07 x10E9/L 12/10/2019 10:56 AM CDT [facility] Eosinophils Absolute 0.23 0 - 0.47 x10E9/L 12/10/2019 10:56 AM CDT [facility] Basophils Absolute 0.02 0 - 0.08 x10E9/L 12/10/2019 10:56 AM CDT [facility] RBC 3.28(L) 3.80 - 5.40 x10E12/L 12/10/2019 10:56 AM CDT [facility] Hemoglobin 11.2(L) 12.0 - 17.6 gm/dL 12/10/2019 10:56 AM CDT [facility] Hematocrit 35.1(L) 35.2 - 51.7 % 12/10/2019 10:56 AM CDT [facility] MCV 107.0(H) 80.7 - 98.3 fl 12/10/2019 10:56 AM CDT [facility] MCH 34.1(H) 26.7 - 34.0 pg 12/10/2019 10:56 AM CDT [facility] MCHC 31.9 30.8 - 35.9 gm/dL 12/10/2019 10:56 AM CDT [facility] RDW-CV 13.6 12.1 - 14.9 % 12/10/2019 10:56 AM CDT [facility] Platelet Count 156 153 - 416 x10E9/L 12/10/2019 10:56 AM CDT [facility] MPV 8.9(L) 9.4 - 12.9 fl 12/10/2019 10:56 AM CDT [facility] Blood BLOOD SPECIMEN / Unknown 12/10/2019 10:49 AM CDT 12/10/2019 10:49 AM CDT Lucy Girard MD LAB - HEMATOLOGY ORD ERABLES [facility] [address] [address] * (ABNORMAL) CBC W/O DIFFERENTIAL (CC) (10/13/2019 12:15 PM CDT) [facility] WBC 6.6 4.4 - 10.7 x10E9/L 10/13/2019 12:22 PM CDT [facility] RBC 3.57(L) 3.80 - 5.40 x10E12/L 10/13/2019 12:22 PM CDT [facility] Hemoglobin 11.7(L) 12.0 - 17.6 gm/dL 10/13/2019 12:22 PM CDT [facility] Hematocrit 37.3 35.2 - 51.7 % 10/13/2019 12:22 PM CDT [facility] MCV 104.5(H) 80.7 - 98.3 fl 10/13/2019 12:22 PM CDT [facility] MCH 32.8 26.7 - 34.0 pg 10/13/2019 12:22 PM CDT [facility] MCHC 31.4 30.8 - 35.9 gm/dL 10/13/2019 12:22 PM CDT [facility] RDW-CV 14.1 12.1 - 14.9 % 10/13/2019 12:22 PM CDT [facility] Platelet Count 187 153 - 416 x10E9/L 10/13/2019 12:22 PM CDT [facility] MPV 9.1(L) 9.4 - 12.9 fl 10/13/2019 12:22 PM CDT [facility] Blood BLOOD SPECIMEN / Unknown 10/13/2019 12:15 PM CDT 10/13/2019 12:15 PM CDT Lucy Girard MD LAB - HEMATOLOGY ORD ERABLES [facility] [address] [address] * (ABNORMAL) PROTEIN ELECTRO+FORREST+FREE LIGHT CHAINS (10/13/2019 12:15 PM CDT) [facility] IgG Quantitative 1,393 603 - 1,613 mg/dL [facility] INSURANCE BILL IgA Quantitative 275 61 - 437 mg/dL [facility] INSURANCE BILL IgM Quantitative 83 15 - 143 mg/dL [facility] INSURANCE BILL Protein Total 7.3 6.0 - 8.5 g/dL [facility] INSURANCE BILL Albumin 3.9 2.9 - 4.4 g/dL [facility] INSURANCE BILL Alpha-1 Globulin 0.3 0.0 - 0.4 g/dL [facility] INSURANCE BILL Vieda-3-Ibcwdpnx 0.8 0.4 - 1.0 g/dL [facility] INSURANCE BILL Beta-Globulin 1.0 0.7 - 1.3 g/dL [facility] INSURANCE BILL Gamma Globulin 1.4 0.4 - 1.8 g/dL [facility] INSURANCE BILL M-Rivera Not Observed Not Observed g/dL [facility] INSURANCE BILL Globulin Total 3.4 2.2 - 3.9 g/dL [facility] INSURANCE BILL Albumin/Globulin Ratio 1.2 0.7 - 1.7 [facility] INSURANCE BILL Immunofixation Result [facility] INSURANCE BILL Comment:No monoclonality det ected. Please Note [facility] INSURANCE BILL Comment: Protein electrophoresis scan will follow via computer, mail, or industrial millwright delivery. Free [place] Light Chains 148.4(H) 3.3 - 19.4 mg/L [facility] INSURANCE BILL Free Lambda Light Chains 109.0(H) 5.7 - 26.3 mg/L [facility] INSURANCE BILL [place]/Lambda Ratio 1.36 0.26 - 1.65 [facility] INSURANCE BILL Blood BLOOD SPECIMEN / Unknown 10/13/2019 12:15 PM CDT 10/13/2019 Narrative Resulting Agency Comment Lab Testing performed at: [facility] [facility] [address] [facility] ??[facility] [phone] Lucy Girard MD LAB - CHEMISTRY DELFINO VIDAL [facility] INSURANCE BILL [address] [place] [address] * ERYTHROPOIETIN (10/13/2019 12:15 PM CDT) Pathologist [facility] Erythropoietin 10.8 2.6 - 18.5 mIU/mL [facility] INSURANCE BILL Comment: [employer] DxI 800 Immunoassay System ? . Values obtained with different assay methods or kits cannot be used interchangeably. Results cannot be interpreted as absolute evidence of the presence or absence of malignant disease. Blood BLOOD SPECIMEN / Unknown 10/13/2019 12:15 PM CDT 10/13/2019 Narrative Resulting Agency Comment Lab Testing performed at: [place] [facility] [address] ??[facility] [phone] Lucy Girard MD LAB - CHEMISTRY DELFINO VIDAL Performing Organization Address [facility] de Phone Number [facility] INSURANCE BILL [address] [place] [address] * (ABNORMAL) IRON + TIBC PANEL (10/13/2019 12:15 PM CDT) TIBC 172(L) 250 - 450 ug/dL [facility] INSURANCE BILL UIBC 58(L) 111 - 343 ug/dL [facility] INSURANCE BILL Iron 114 38 - 169 ug/dL [facility] INSURANCE BILL Iron Saturation 66(H) 15 - 55 % [facility] INSURANCE BILL Blood BLOOD SPECIMEN / Unknown 10/13/2019 12:15 PM CDT 10/13/2019 Narrative Resulting Agency Comment Lab Testing performed at: [facility] [address] ??[facility] [phone] Lucy Girard MD LAB - CHEMISTRY DELFINO VIDAL Performing Organization Address [facility] Co de Phone Number [facility] INSURANCE BILL [address] [place] [address] * VITAMIN B12 FOLATE PANEL (10/13/2019 12:15 PM CDT) Vitamin B12 279 213 - 816 pg/mL [facility] INSURANCE BILL Folate 17.2 7.0 - 31.4 ng/mL [facility] INSURANCE BILL Blood BLOOD SPECIMEN / Unknown 10/13/2019 12:15 PM CDT 10/13/2019 Narrative Resulting Agency Comment Lab Testing performed at: [facility] [address] ?? [place] [phone] Lucy Girard MD LAB - CHEMISTRY DELFINO VIDAL [facility] INSURANCE BILL [address] [place] [address] * XR PELVIS 1 OR 2VW (06/28/2019 10:30 AM STONEWORKING BELT SANDER) Anatomical Region Laterality Modality Pelvis Computed Radiogr aphy Narrative 06/28/2019 10:31 AM STONEWORKING BELT SANDER Genoveva Espinoza ? 06/29/2019 ??5:04 PM Please see progress notes for result. Dylon Agudelo MD DIAGNOSTIC IMAGING O RDERABLES * (ABNORMAL) CBC W AUTO DIFFERENTIAL (05/27/2019 7:13 PM STONEWORKING BELT SANDER) Only the most recent of2 resultswithin the time period is included. WBC 4.5 4.4 - 10.7 x10E9/L 05/27/2019 10:24 PM STONEWORKING BELT SANDER [facility] WBC Corrected 05/27/2019 10:24 PM STONEWORKING BELT SANDER [facility] RBC 2.72(L) 3.80 - 5.40 x10E12/L 05/27/2019 10:24 PM STONEWORKING BELT SANDER [facility] Hemoglobin 8.5(L) 12.0 - 17.6 gm/dL 05/27/2019 10:24 PM STONEWORKING BELT SANDER [facility] Hematocrit 28.2(L) 35.2 - 51.7 % 05/27/2019 10:24 PM STONEWORKING BELT SANDER [facility] MCV 103.7(H) 80.7 - 98.3 fl 05/27/2019 10:24 PM STONEWORKING BELT SANDER [facility] MCH 31.3 26.7 - 34.0 pg 05/27/2019 10:24 PM STONEWORKING BELT SANDER [facility] MCHC 30.1(L) 30.8 - 35.9 gm/dL 05/27/2019 10:24 PM STONEWORKING BELT SANDER [facility] Platelet Count 215 153 - 416 x10E9/L 05/27/2019 10:24 PM [facility] RDW-CV 17.1(H) 12.1 - 14.9 % 05/27/2019 10:24 PM [facility] MPV 9.1(L) 9.4 - 12.9 fl 05/27/2019 10:24 PM [facility] Neutrophils % 45.5 44.0 - 73.0 % 05/27/2019 10:24 PM [facility] Lymphocytes % 30.8 20.0 - 43.0 % 05/27/2019 10:24 PM [facility] Monocytes % 15.0(H) 5.0 - 13.0 % 05/27/2019 10:24 PM [facility] Eosinophils % 6.0 0.0 - 6.0 % 05/27/2019 10:24 PM [facility] Basophils % 0.7 0.0 - 2.0 % 05/27/2019 10:24 PM [facility] Immature Granulocytes 2.0(H) 0 - 1 % 05/27/2019 10:24 PM [facility] Neutrophil Absolute 2.04 2.01 - 7.14 x10E9/L 05/27/2019 10:24 PM [facility] Lymphocytes Absolute 1.38 1.07 - 3.94 x10E9/L 05/27/2019 10:24 PM [facility] Monocytes Absolute 0.67 0.26 - 1.07 x10E9/L 05/27/2019 10:24 PM [facility] Eosinophils Absolute 0.27 0 - 0.47 x10E9/L 05/27/2019 10:24 PM [facility] Basophils Absolute 0.03 0 - 0.08 x10E9/L 05/27/2019 10:24 PM [facility] Immature Granulocytes Absolute 0.09(H) 0.00 - 0.06 x10E9/L 05/27/2019 10:24 PM [facility] nRBC Auto 0 /100 WBC 05/27/2019 10:24 PM [facility] Blood BLOOD SPECIMEN / Unknown 05/27/2019 7:13 PM STONEWORKING BELT SANDER 05/27/2019 10:18 PM STONEWORKING BELT SANDER Manoj Morrison ANIMAL TR[employer]PER-[employer] CELL BUILDER LAB - HEMATOLOGY ORDERABLES [facility] [address] [place] [id number] * XR PELVIS W BILAT HIP 2VW (05/24/2019 4:45 PM STONEWORKING BELT SANDER) Anatomical Region Laterality Modality Pelvis, Lower Extremity [facility] 05/24/2019 5:22 PM STONEWORKING BELT SANDER Narrative 05/24/2019 5:22 PM STONEWORKING BELT SANDER 2 views right hip 2 views left hip AP pelvis INDICATION: Bilateral hip pain and pelvic pain. FINDINGS: Right hip: No acute fracture, malalignment, or degenerative disease. Left hip: Marked severe osteoarthrosis left hip joint with [id number] contact throughout the central, superior, superolateral portions of the articulation. Subchondral sclerosis and cystic change femoral head and acetabulum. No acute fracture. AP pelvis: Anatomic alignment. No other sites of degenerative disease. No acute pathology. Reading Radiologist: Milana Rodríguez MD on 05/24/2019 at 5:22 PM Procedure Note Milana Rodríguez MD - 05/24/2019 2 views right hip 2 views left hip AP pelvis INDICATION: Bilateral hip pain and pelvic pain. FINDINGS: Right hip: No acute fracture, malalignment, or degenerative disease. Left hip: Marked severe osteoarthrosis left hip joint with [id number]-bg-[id number] contact throughout the central, superior, superolateral portions of the articulation. Subchondral sclerosis and cystic change femoral head and acetabulum. No acute fracture. AP pelvis: Anatomic alignment. No other sites of degenerative disease. No acute pathology. Reading Radiologist: Milana Rodríguez MD on 05/24/2019 at 5:22 PM Manoj Morrison ANIMAL TR[employer] CELL BUILDER DIAGNOSTIC IMAGIN G ORDERABLES * (ABNORMAL) METHYLMALONIC ACID BLOOD (05/15/2019 6:59 AM STONEWORKING BELT SANDER) Methylmalonic Acid 687(H) 0 - 378 nmol/L 05/20/2019 12:09 PM STONEWORKING BELT SANDER [facility] Disclaimer Comment 05/20/2019 12:09 PM STONEWORKING BELT SANDER [facility] Comment: This test was developed and its performance characteristics determined by [facility]. It has not been cleared or approved by the Food and Drug Administration. Blood BLOOD SPECIMEN / Unknown 05/15/2019 6:59 AM STONEWORKING BELT SANDER 05/17/2019 12:23 PM STONEWORKING BELT SANDER Narrative [facility] - 05/20/2019 12:09 PM STONEWORKING BELT SANDER Performed at: ??01 - [facility] [address] ??[id number] Health Services Administrator: Loida Antonio MD, Phone: ??[phone] Florencai Moulton MD LAB - CHEMISTRY DELFINO VIDAL Performing Organization Address City/[facility]/ZIP Co de Phone Number [facility] [address] [place] [address] * HEPATIC FUNCTION PANEL (05/13/2019 5:00 AM STONEWORKING BELT SANDER) Alkaline Phosphatase 59 40 - 150 U/L 05/13/2019 5:49 PM STONEWORKING BELT SANDER [facility] ALT 32 0 - 61 U/L 05/13/2019 5:49 PM STONEWORKING BELT SANDER [facility] AST 16 5 - 34 U/L 05/13/2019 5:49 PM STONEWORKING BELT SANDER [facility] Protein Total 6.4 6.4 - 8.3 gm/dL 05/13/2019 5:49 PM STONEWORKING BELT SANDER [facility] Albumin 3.4 3.2 - 4.6 gm/dL 05/13/2019 5:49 PM STONEWORKING BELT SANDER [facility] Bilirubin Total 0.3 0.2 - 1.2 mg/dL 05/13/2019 5:49 PM STONEWORKING BELT SANDER [facility] Bilirubin Direct 0.1 <=0.5 mg/dL 05/13/2019 5:49 PM STONEWORKING BELT SANDER [facility] Blood BLOOD SPECIMEN / Unknown Venipuncture / Unknown 05/13/2019 5:00 AM STONEWORKING BELT SANDER 05/13/2019 5:32 PM STONEWORKING BELT SANDER Florencia Moulton MD LAB - CHEMISTRY DELFINO VIDAL [facility] [address] [place] [address] Care Teams Change Attendant Relationship Specialty Start Date End Date Kwame Berg MD PCP - General Internal Medicine 01/19/19 [place] [address] [place] [address] [address] Orthopedic Surgery Orthopedic Surgery 10/13/19
--- OUTSIDE RECORDS SUMMARY | 2024-04-25 21:18 | XMS_ITS | Encounter Summary ---
Author Organization [facility] Address [address] [facility] [place] [address] Care Team Providers Care Engraver Lettering Name Role Phone Kwame Berg MD Primary Care Provider [phone] Dylon Agudelo MD Unavailable [phone] Reason for Referral * Radiology Services (Routine) - Pending Review Specialty Diagnoses / Procedures Referred By Contac t Referred To Contact Diagnoses ESRD (end stage renal disease) (HCC) Procedures IR ANGIO [place] [address] [facility] [address] [place] [address] Referral ID Status Reason Start Date Expiration Date V isits Requested Visits Authorized [id number] Pending Review 08/04/2023 08/03/2024 1 1 Reason for Visit * Radiology Services (Routine) - Closed Specialty Diagnoses / Procedures Referred By Contac t Referred To Contact Diagnoses ESRD (end stage renal disease) (HCC) Procedures IR [place] [address] [facility] [address] [place] [address] Referral ID Status Reason Start Date Expiration Date Visits Re quested Visits Authorized [id number] Closed 11/18/2022 11/18/2023 1 1 Encounter Details Date Type Department Care Team (Latest Contact Info) Description 08/04/2023 11:23 AM CDT - 08/04/2023 11:59 PM CDT Hospital Encounter [facility] Health Vascular Services [address] [facility], [address] [place] [address] Tyshawn Heller MD [address] [place] [address] [place] [address] [place] [address] [place] [address] [facility] [address] [place] [address] [place] [address] [facility] [address] [place] [address] Discharge Disposition: Home or Self Care [...] Sign Reading Time Taken Comments Blood Pressure 157/58 08/04/2023 12:30 PM CDT Pulse 57 08/04/2023 12:30 PM CDT Temperature 36.7 ??C (98.1 ??F) 08/04/2023 11:45 AM C DT Respiratory Rate 12 08/04/2023 12:30 PM CDT Oxygen Saturation 98% 08/04/2023 12:30 PM CDT Inhaled Oxygen Concentration - - Weight 55.3 kg (122 lb) 08/04/2023 11:45 AM CDT Height 172.7 cm (5' 8) 08/04/2023 11:45 AM CDT Body Mass Index 18.55 08/04/2023 11:45 AM CDT documented in this encounter Functional [...] mL by mouth 2 times daily 07/26/2021 polyethylene glycol 3350 (Miralax) 17 GM/SCOOP powder MIX 1 SCOOP IN WATER AND DRINK BY MOUTH ONCE A DAY 04/14/2023 rOPINIRole (REQUIP) 0.5 MG tablet Take 1 (one) tablet by mouth Three times a week 06/23/2019 sevelamer carbonate (RENVELA) 800 MG Take 1 (one) tablet by mouth 3 times daily with meals tamsulosin (FLOMAX) 0.4 MG capsule Take 1 (one) capsule by mouth at bedtime At the same time every day after a meal. cyanocobalamin (Vitamin B-12) 1000 MCG tablet Take 1 (one) tablet by mouth every morning 07/02/2023 02/23/2024 LORazepam (Ativan) 0.5 MG tablet Take 1 (one) tablet by mouth every 12 hours as needed FOR ANXIETY 05/28/2023 02/23/2024 documented as of this encounter Progress Notes * Carlyn Mishra RN - 08/04/2023 11:48 AM CDT ISRRAEL velásquez is pulsatile and here for a fistulogram. documented in this encounter Procedure Notes * Osmany Mcdaniel MD - 08/04/2023 12:32 PM CDT [facility] Vascular [place] Jules Mitchell 1945 DATE OF PROCEDURE: 08/04/23 ORDERING PHYSICIAN: Dr. Iyer PROCEDURE: 1) Fistulogram with peripheral fistuloplasty 2) Central fistuloplasty 3) Radiologic interpretation INDICATIONS FOR PROCEDURE: Mr. Vicente is a pleasant 78-year-old male with a left upper extremity brachial to axillary AV who has undergone previous central and peripheral fistula plasty for stenosis. His dialysis center noted an increased pulse in the AV graft concerning for restenosis. We discussed the risks, benefits and alternatives to procedure, he desired to proceed. DESCRIPTION OF PROCEDURE: After informed consent was given, the patient was taken to the lab and placed supine on the table. The patient's left upper extremity was then prepped and draped in the usual sterile fashion. Using ultrasound guidance the left upper extremity AV graft was identified and anesthetized with 1 percent lidocaine. Using a micropuncture needle, the AV graft was accessed and a micropuncture wire, confirmed in the lumen. The needle was removed and upsized to a micropuncture sheath. A peripheral and central fistulogram was performed. A [employer]metic[employer] wire was then positioned into the superior vena cava. The micropuncture sheath was removed and exchanged for a 6 Belarusian sheath. An 8 mm x 40 mm fistula plasty was performed at the venous anastomosis. An 8 mm x 40 mm central plasty was performed at the junction of the axillary and subclavian veins. A completion fistulogram was then performed. The wire andsheath removed and manual pressure was held. The patient was then transferred to [facility] in stable condition and will continue to recover in the recovery room. FINDINGS: Greater than 70 percent stenosis of the venous anastomosis resolved after angioplasty. Greater than50 percent stenosis of the central axillary/subclavian junction with less than 30 percent residual stenosis. IMPRESSION: 1. Left upper extremity fistulogram demonstrates a patent brachial to axillary AV graft with no stenosis at the arterial anastomosis and greater than 70 percent stenosis at the venous anastomosis. There is greater than 50 percent stenosis in the central system at the junction of the subclavian and axillary veins 2. Completion left upper extremity fistula and demonstrates resolution of the venous anastomotic stenosis and less than 30 percent residual stenosis of the central veins. DICTATED BY: Osmany Mcdaniel M.D. DATE DICTATED: 08/04/23 Interventional Post-Operative/Procedure Notes Surgeon: Osmany Mcdaniel MD Pre Procedure Diagnosis: ESRD Post Procedure Diagnosis: ESRD Anesthesia: Local 1% lidocaine Disposition: OPS Status: Stable Drain or Pack: None Additional Information/Complications: None Estimated Blood Loss: Negligible Specimen: None documented in this encounter Plan of Treatment Upcoming Encounters Date Type Department Care Team (Late st Contact Info) Description 08/23/2024 1:00 PM CDT Appointment [facility] Health Vascular Services [id number] [place] [address], [address] [place] [address] [place] [id number] [place] [address] [place] [phone] [place] [id number] [place] [address] [place] [address] Pending Results Name Type Priority Associated Diagnoses Date /Time IR ANGIO AV SHUNT IMAGING Imaging Routine ESRD (end stage renal disease) ([facility]) 08/04/2023 12:27 PM CDT Scheduled Orders Name Type Priority Associated Diagnoses Orde r Schedule IR ANGIO AV SHUNT IMAGING Imaging Routine ESRD (end stage renal disease) ([facility]) 1 Occurrences starting 08/04/2023 until 08/03/2024 documented as of this encounter Procedures Procedure Name Priority Date/Time Associated Diagnosis Comments CARDIAC RHYTHM STRIP ORDER 08/05/2023 7:37 PM CDT documented in this encounter Results * CARDIAC RHYTHM STRIP ORDER (08/05/2023 7:37 PM CDT) Narrative 08/05/2023 7:37 PM CDT Ordered by an unspecified provider. [...] NaCl infusion at 50 mL/hr, Intravenous, INTRA-PROCEDURE MULTIPLE, Starting on Fri08/04/23 at 1149, Until Tu08/05/23 at 0140, Intra-procedure (IR) $ New Bag/Syringe 08/04/2023 12:31 PM CDT 75 mL 50 mL/hr iopamidol (Isovue 300) 61 % contrast Intravenous, INTRA-PROCEDURE MULTIPLE, Starting on Fri08/04/23 at 1149, Until Fri08/05/23 at 0140, Intra/Post-procedure $ Given - Contrast 08/04/2023 12:30 PM CDT 25 mL lidocaine (Xylocaine PF) 1% injection ADS Med 1 dose, Starting on Fri08/04/23 at 1141, Until Fri08/04/23 at 1232, Created by cabinet override lidocaine PF (Xylocaine MPF) 1 % injection Infiltration, INTRA-PROCEDURE MULTIPLE, Starting on Fri08/04/23 at 1149, Until Fri08/05/23 at 0140, Intra-procedure (IR) $ Given 08/04/2023 12:32 PM CDT 20 mg documented in this encounter Care Teams Engraver Lettering Relationship Specialty Start Date End Date Kwame Berg MD PCP - General Internal Medicine 01/19/19 [place] [address] [address] Orthopedic Surgery Orthopedic Surgery 10/13/19 documented as of this encounter
--- OUTSIDE RECORDS SUMMARY | 2024-04-25 21:18 | XMS_ITS | Encounter Summary ---
Author Organization [facility] Address [address] [place] [address] Care Team Providers Care Student Support Advisor Name Role Phone Kwame Berg MD Primary Care Provider [phone] Dylon Agudelo MD Unavailable [phone] Reason for Visit * Reason Comments Post-Op ISRRAEL SHER Encounter Details Date Type Department Care Team (Late st Contact Info) Description 07/08/2022 11:00 AM CDT Office Visit [facility] Medical [facility] - Surgery [address] [place] [address], [address] [place] [address] [place] [address] [facility] [address] [place] [address] Postop check (Primary Dx) Social History Tobacco Use Types [...] - - Weight 55.3 kg (122 lb) 07/08/2022 11:25 AM CDT Height 157.5 cm (5' 2) 07/08/2022 11:25 AM CDT Body Mass Index 22.31 07/08/2022 11:25 AM CDT documented in this encounter Functional [...] this encounter Patient Instructions * Patient Instructions* Myles Kuhn - 07/08/2022 11:30 AM CDT Patient's medications and allergies were reviewed with the patient today. Patient was instructed tocontact primary care physician or ordering provider with any questions regarding medications. documented in this encounter Progress Notes * Mario Iyer MD - 07/08/2022 11:22 AM CDT Jules Mitchell is a 77 year old male who is here for a postoperative visit following PROCEDURE PERFORMED: Left upper arm deep brachial vein arteriovenous fistula. ?? FINDINGS: The artery was little small and we were able to get a little extra length on the deep brachial vein. Patient has the fairly thin arm so I think there is a possibility for a good transposition in him. The patient is referred by Kwame Berg MD. PCP is Kwame Berg MD. Incision: Healing well. Thrill/Bruit: Present Plan: Will follow up in four weeks to assess maturation. documented in this encounter Plan of Treatment Upcoming Encounters Date Type Department Care Team (Late st Contact Info) Description 08/23/2024 1:00 PM CDT Appointment [facility] Vascular Services [address] [place] [address], [place] [id number] [place] [address] [facility] [address] [place] [address] [place] [address] [facility] [address] [place] [address] documented as of this encounter Visit Diagnoses Diagnosis Postop check- Primary Follow-up examination, following unspecified surgery documented in this encounter Care Teams Student Support Advisor Relationship Specialty Start Date End Date Kwame Berg MD PCP - General Internal Medicine 01/19/19 [place] [address] [facility] [address] [place] [address] Orthopedic Surgery Orthopedic Surgery 10/13/19 documented as of this encounter
--- OUTSIDE RECORDS SUMMARY | 2024-04-25 21:18 | XMS_ITS | Encounter Summary ---
Author Organization [facility] Address [address] [place] [address] Care Team Providers Care Superintendent Pier Name Role Phone Kwame Berg MD Primary Care Provider [phone] Dylon Agudelo MD Unavailable [phone] Reason for Visit * Auth/Cert (Routine) Specialty Diagnoses / Procedures Referred By Contac t Referred To Contact Procedures ARTERIOVENOUS FISTULA TRANSPOSITION / SUPERFICIALIZATION Referral ID Status Reason Start Date Expiration Date Visits Re quested Visits Authorized [id number] 1 1 Encounter Details Date Type Department Care Team (Late st Contact Info) Description 10/21/2022 7:30 AM CDT - 10/21/2022 9:26 AM CDT Surgery [facility] - Perioperative Surgery [address] [place] [address] [place] [address] [address] [place] [address] left arm dialysis fistula transposition with graft. Surgery Details Date/Time Status Location OR Service Patient Class Case Class Case Type Trauma Case? 10/21/2022 7:30 AM Posted [facility] MAIN OR OR 04 Vascular Surgery Day Care Elective > 5 days Panel 1 Procedure LRB Anes Op Region Wound Class Comments left arm dialysis fistula tr ansposition with graft. Left MAC Arm Clean Surgeon Surgeon Role Service Panel Mario Iyer MD Primary Vascular 1 documented in this encounter Social History Tobacco [...] Sign Reading Time Taken Comments Blood Pressure 110/76 10/21/2022 8:46 AM CDT Pulse 81 10/21/2022 8:46 AM CDT Temperature 36.2 ??C (97.2 ??F) 10/21/2022 8:46 AM CD T Respiratory Rate 16 10/21/2022 8:46 AM CDT Oxygen Saturation 100% 10/21/2022 8:46 AM CDT Inhaled Oxygen Concentration - - Weight 54.4 kg (120 lb) 10/21/2022 7:06 AM CDT Height 157.5 cm (5' 2) 10/21/2022 7:06 AM CDT Body Mass Index 21.95 10/21/2022 7:06 AM CDT documented in this encounter Functional [...] Sig Dispensed Refills Start Date End Date allopurinol (ZYLOPRIM) 100 MG tablet Take 1 [...] 5 mg/mL(0.5 %) solution for nebulization 03/31/2023 HYDROcodone-acetamino phen ([place]) 7.5-325 MG tabletIndications:ESR D (end stage renal disease) (HCC) Take 1 [...] as of this encounter Progress Notes * Myara Rojas RN - 10/21/2022 10:45 AM CDT Courtesy post op phone call attempted, will send letter. documented in this encounter H&P Notes * Mario Iyer MD - 10/17/2022 7:11 AM CDT Surgical H&P Chief Complaint: ESRD, deep fistula ?? History and Physical: Jules Mitchell is a 77 year old male. The patient is referred by Naveen Blackman MD. PCP is Kwame Berg MD. Patient has a left deep brachial vein dialysis fistula. The fistula has matured nicely, however is deep. The patient denies shortness of breath, anorexia or fatigue. Will plan for left arm dialysisfistula transposition, possible graft. ?? Past Medical History Past Medical History: Diagnosis Date ??? Cancer (CMS/HCC) 1999 ?? pt unsure of type of cancer- ??? Chronic kidney disease ? Dementia (CMS/HCC) ? ESRD (end stage renal disease) (CMS/HCC) ? [facility] as of 07/29/22 ??? High blood pressure ? Pure hypercholesterolemia ? Stroke (CMS/HCC) 2004 ?? per pt ? Past Surgical History Past Surgical History: Procedure Laterality Date ??? A-V SHUNT CREATION Right 03/15/2020 ?? Right; RIGHT ARM DIALYSIS GRAFT ??? HIP ARTHROPLASTY, TOTAL Left 01/12/2020 ?? LEFT POSTERIOR ARTHROPLASTY TOTAL HIP ??? HIP ARTHROPLASTY, TOTAL ?? 01/12/2020 ?? LEFT POSTERIOR ARTHROPLASTY TOTAL HIP ??? INSERTION DIALYSIS CATHETER Right 04/2019 ?? r chest tunneled cath ??? OTHER SURGERY ? Testicular surgery per nephew but not positive? VASCULAR PROCEDURE/SURGERY ?? 10/20/2019 ?? RIGHT UPPER ARM ARTERIOVENOUS FISTULA ??? VASCULAR PROCEDURE/SURGERY Left 06/24/2022 ?? Left; LEFT UPPER ARM ARTERIO-VENOUS (AV) FISTULA ? Medications Outpatient Medications Marked as Taking for the 07/29/22 encounter (Office Visit) with Mario Iyer MD Medication Sig Dispense Refill ??? allopurinol (ZYLOPRIM) 100 MG tablet Take 1 (one) tablet by mouth once daily ? apixaban (ELIQUIS) 2.5 MG tablet Take 1 tablet by mouth 2 times daily 60 tablet 0 ??? atorvastatin (LIPITOR) 20 MG tablet Take 1 (one) tablet by mouth at bedtime ?? 0 ??? dilTIAZem (CARDIZEM) 30 MG tablet Take 1 (one) tablet by mouth 3 times daily ? folic acid (Folvite) 1 MG tablet Take 1 (one) tablet by mouth once daily ? furosemide (LASIX) 80 MG tablet Take 1 (one) tablet by mouth 2 times daily ? lanthanum (Fosrenol) 500 MG chew tablet 1 (one) tablet 2 times daily ? levETIRAcetam (KEPPRA) 100 MG/ML oral solution Take 5 mL by mouth 2 times daily ? lidocaine-prilocaine (EMLA) 2.5-2.5 % cream ? lisinopril (PRINIVIL; ZESTRIL) 10 MG tablet Take 1 (one) tablet by mouth once daily ? polyethylene glycol 3350 (MIRALAX) 17 g packet Take 17 (seventeen) g by mouth once daily as needed ? rOPINIRole (REQUIP) 0.5 MG tablet Take 1 (one) tablet by mouth Three times a week ? sevelamer carbonate (RENVELA) 800 MG Take 1 (one) tablet by mouth 3 times daily with meals ? sodium bicarbonate 325 MG tablet Take 1 (one) tablet by mouth once daily ? tamsulosin (FLOMAX) 0.4 MG capsule Take 1 (one) capsule by mouth at bedtime At the same time every day after a meal. ? vitamin D, ergocalciferol, (DRISDOL) 1.25 MG (07641 UT) capsule Take 1 (one) capsule by mouth every 30 days ? No Known Allergies ?? Family History Family History Problem Relation Name Age of Onset ??? Hypertension Mother ? Hypertension Sister ? Diabetes - Type 2 Sister ? Social History ?? Tobacco Use ??? Smoking status: Former ? Types: Cigarettes ? Quit date: 10/12/2012 ? Years since quittin.8 ??? Smokeless tobacco: Never Substance Use Topics ??? Alcohol use: Not Currently ? Review of Systems General: No fatigue or [...] bleeding Rectal: No rectal bleeding or pain ? Physical Examination: Constitutional: Vital signs are normal, patient is alert Eyes: Reveal no icterus. Neck: Neck is without mass or swelling. Respiratory: Lungs without wheezing or SOB Cardiovascular: Regular rate and rhythm. GI: Abdomen is soft, no mass Musculoskeletal: All four extremities are warm, patent left arm fistula. Neurologic: Intact. ?? Impression/Plan: ESRD. Will plan for left arm dialysis fistula transposition, possible graft. I have discussed the risks, benefits and alternatives to surgery with the patient who understands and wishes to proceed. ?? In addition to the standard procedural informed consent, the specific risks related to COVID-19 were also discussed, including the possibility of an infection being present with a negative test, the risk of lisa COVID-19, and the known implications of this infection. See consent form. documented in this encounter OR Notes * OR Surgeon - Mario Iyer MD - 10/21/2022 8:[address] [facility] OPERATIVE REPORT PATIENT: Jules Mitchell MR#: [id number] ADMIT DATE: 10/21/2022 6:13 AM [facility] # [id number] DATE OF SURGERY: 10/21/2022 : 1945 PHYSICIAN: Mario Iyer MD PREOPERATIVE DIAGNOSIS: End stage renal disease. POSTOPERATIVE DIAGNOSIS: End stage renal disease. PROCEDURE PERFORMED: 1. Left upper arm arteriovenous graft. 2. Ligation of left upper arm AV fistula. SURGEON: Mario Iyer MD ANESTHESIA: 1% lidocaine with epinephrine as a local anesthetic with IV sedation by the anesthesiologist. COMPLICATIONS: None. DRAINS: None. ESTIMATED BLOOD LOSS: Less than 50ml. CONDITION: The patient is stable postoperatively. PROCEDURE: Once the patient was prepped and draped in the usual sterile fashion, the patient was given 1% lidocaine with epinephrine as local anesthetic and IV sedation by the anesthesiologist. The patient tolerated this well. The left upper arm deep brachial vein AV fistula was cut down upon and we tried to do a transposition, but the fistula was little too short for good and adequate transposition. For this reason, we converted to an AV graft and ligated the fistula with 2 0 silk free ties in continuity. The left brachial artery just above the antecubital fossa was dissected out as was the basilic vein in the axilla. The Impra tunneler was used to tunnel the 4-7 mm [place] graft subcutaneously under the skin. The patient was given 3000 units of heparin intravenously. We also used heparinized saline on the field. End-to-side anastomoses were performed both proximally and distally with 6-0 Prolene in a simple running fashion. Once completed, the graft was flushed and then opened, and there was excellent flow in the outflow vein. Incisions were closed with 2-0 nylon in a interrupted vertical mattress fashion. The patient tolerated the procedure well and was found to be stable in the recovery room postoperatively. Sponge and instrument counts were correct x2. Preoperatively, the patient and family understood the risks of procedure to be bleeding, infection, pain, poor wound healing, decreased circulation to the left arm, and the possible need for further dialysis access surgery. With all this in mind, they wanted to go ahead with today's surgery. Mario Iyer MD documented in this encounter Miscellaneous Notes * Clinical References AVS - Estiven Grant RN - 10/21/2022 10:07 AM CDT Images from the original note were not included. [address] Arteriovenous (AV) Fistula for Dialysis An AV fistula is a connection between an artery and a vein. For this procedure, an AV fistula is surgically made using an artery and a vein in your arm. (Your healthcare provider will let you know ifanother site is to be used.) When the artery and vein are joined, blood flow increases from the artery into the vein. As a result, the vein gets bigger over time. The enlarged vein provides easier access to the blood for a treatment for kidney failure (dialysis). This sheet explains the procedure and what to expect. An AV fistula increases blood flow from the artery into the vein. Over time, the vein becomes stronger and enlarged. Getting ready for the procedure Prepare as you have been told. Also: ?? Tell your healthcare provider about all the medicines you take. This includes all nhyf-rou-sjixhrk and prescription medicines. It also includes herbs, vitamins, and other supplements, as well as illegal drugs. You may need to stop taking some or all of them before the procedure. ?? Follow any directions you?re given for not eating or drinking before the procedure. ?? Do not let anyone draw blood from or take blood pressure on the arm that will have the fistula before the procedure. The day of the procedure The procedure takes about 1 to 2 hours. You?ll likely go home the same day. Before the procedure starts: ?? An IV (intravenous) line is put into a vein in the arm or hand not being used for the procedure.This line gives fluids and medicines. ?? To keep you free of pain during the procedure, you may be given general anesthesia. This medicine lets you to sleep comfortably during the procedure. Another option would be to do a nerve block that numbs the arm. With it, you may also be given medicine that makes you relaxed and drowsy through the procedure. During the procedure: ?? The skin over your arm may be injected with numbing medicine. ?? One or more small cuts (incisions) are then made through the numbed skin. This depends on the size of your arm and the depth of the vein in your arm. ?? The vein is attached to the selected artery. ?? Any cuts made are then closed with stitches (sutures), lyric, surgical glue, or strips of surgical tape. After the procedure: ?? You?ll be asked to keep your arm raised (elevated) as often as possible for at least 1 week after the procedure. ?? You?ll be given medicines for pain as needed. ?? Your arm and hand will be checked to make sure blood is flowing through the fistula properly. The feeling of blood rushing through the fistula is called a thrill. It is somewhat like the purring of a cat. You?ll be taught how to check for this feeling each day to make sure there are no problems with your fistula. You?ll also be taught how to care for your fistula at home. ?? When it?s time for you to leave the hospital, have an adult family member or friend ready to drive you home. Recovering at home Once at home, follow all the instructions you?ve been given. Be sure to: ?? Take all medicines as directed. ?? Care for your incision as instructed. ?? Check for signs of infection at the incision site (see below). ?? Don't do any heavy lifting and strenuous activities as directed. ?? Monitor and care for your fistula as instructed. When to call your healthcare provider Call your healthcare provider right away if any of these occur: ?? Fever of 100.4??F ( 38??C) or higher, or as advised by your provider ?? Signs of infection at the incision site, such as more redness or swelling, warmth, worsening pain, bleeding, or bad-smelling drainage ?? You can?t feel a thrill (the vibration of blood going through your arm) ?? Pain or numbness in your fingers, hand, or arm ?? Bleeding, redness, or warmth around your fistula ?? Sudden bulging of the fistula that is more than normal (a slight bulge is normal) Follow-up Your healthcare provider will check your fistula within 1 to 2 weeks after the procedure. It will likely take about 6 to 8 weeks for the fistula to get big enough to start dialysis. After that, make sure the fistula is checked each time you have dialysis. Your healthcare provider may also suggest checkups every 6 months. Risks and possible complications ?? The fistula doesn't work right ?? Long wait before the fistula is ready (up to 6 months) ?? Coldness or numbness in the hand (due to blood flowing away from the hand and into the fistula) ?? An unsightly bump under the skin (due to enlargement of the fistula) ?? Prolonged bleeding from the fistula after dialysis ?? Narrowing or weakening of the blood vessels used for the fistula ?? Forming of blood clots in the blood vessels used for the fistula ?? Risks of anesthesia or any other medicines used during the procedure Living with an AV fistula A problem, such as a narrowing (stricture) of the vein or an infection, can make the fistula unusable. If this happens, you may need other treatments to fix or make a new fistula. To protect your fistula, follow these and any other guidelines you?re given: ?? Check your fistula as often as your healthcare provider says. If you can?t feel your thrill, letyour provider know right away. ?? Make sure your fistula is checked before each dialysis treatment. ?? Don?t let anyone draw blood from or take blood pressure on the arm that has the fistula. ?? Wash your hands often and keep the area around your fistula clean. ?? Don?t sleep on the arm that has the fistula. ?? Don?t wear tight clothing, tight jewelry, or a watch on the arm with your fistula. ?? Protect your fistula from cuts, scrapes, or blows. Last Reviewed Date: 2022 ?? 9440-4020 [employer]. All rights reserved. This information is not intended as a substitute for professional medical care. Always follow your healthcare professional's instructions. * Clinical References ESTRELLITA - Stephanie Mcfadden RN - 10/21/2022 10:02 AM CDT Images from the original note were not included. Living with Your Graft for Hemodialysis - Video Watch this clip and learn how to properly care for your AV graft to ensure it is kept infection-free and in good working order. To view the video go to this web address: https://bit.ly/3i5sgdu Or, scan this QR code with your smart phone ?? [employer] * Clinical References Stephanie Self RN - 10/21/2022 10:02 AM CDT Images from the original note were not included. What is an Arteriovenous Graft for Hemodialysis? - Video Watch this clip to understand what an AV graft is and how it provides a strong access area to the bloodstream for hemodialysis treatments. To view the video go to this web address: https://bit.ly/1ft7Tde Or, scan this QR code with your smart phone ?? [employer] documented in this encounter Plan of Treatment Upcoming Encounters Date Type Department Care Team (Late st Contact Info) Description 08/23/2024 1:00 PM CDT Appointment [facility] Vascular Services [address], [address] [place] [address] [place] [address] [facility] [place] [address] [place] [address] [facility] [address] [place] [address] documented as of this encounter Procedures Procedure Name Priority Date/Time Associated Diagnosis Comments [place] ANASTOMOSIS,AV,BASI LIC VEIN 10/21/2022 7:16 AM CDT BASIC METABOLIC PANEL (CALCIUM TOTAL) STAT 10/21/2022 6:59 AM CDT Preoperative examination documented in this encounter Results * (ABNORMAL) BASIC METABOLIC PANEL (CALCIUM TOTAL) (10/21/2022 6:59 AM CDT) Glucose 101 70 - 105 mg/dL 10/21/2022 7:15 AM CDT [facility] Sodium 140 136 - 145 mmol/L 10/21/2022 7:15 AM CDT [facility] Potassium 5.3(H) 3.5 - 5.1 mmol/L 10/21/2022 7:15 AM CDT [facility] Chloride 100 98 - 107 mmol/L 10/21/2022 7:15 AM CDT [facility] CO2 27 23 - 31 mmol/L 10/21/2022 7:15 AM CDT [facility] Calcium 9.4 8.4 - 10.4 mg/dL 10/21/2022 7:15 AM CDT [facility] Anion Gap 13 8 - 18 mmol/L 10/21/2022 7:15 AM CDT [facility] BUN 38(H) 8.4 - 25.7 mg/dL 10/21/2022 7:15 AM CDT [facility] Creatinine 7.70(H) 0.72 - 1.25 mg/dL 10/21/2022 7:15 AM CDT [facility] eGFR by CKD-EPI 7(L) >=90 mL/min/1.7 3 m2 10/21/2022 7:15 AM CDT [facility] Blood BLOOD SPECIMEN / Unknown Venipuncture / Unknown 10/21/2022 6:59 AM CDT 10/21/2022 7:01 AM CDT Megan Ca DO LAB - CHEMISTRY DELFINO VID[facility] [address] [id number] documented in this encounter Visit Diagnoses Not on filedocumented [...] 10/21/2022 7:16 AM CDT 20 mL/ hr 0.9% NaCl injection 1-10 mL 1-10 mL, Intracatheter, PRN, Other, peripheral line flush, Starting on Fri10/21/22 at 0630, Until Fri10/21/22 at 1227, Flush peripheral IV catheter with 1-10 mL of normal saline before and after medications and prn to clear blood from the line or to verify patency., Pre-op 0.9% NaCl injection 3 mL 3 mL, Intracatheter, EVERY 8 HOURS, First dose on Fri10/21/22 at 0645, Until Discontinued, Flush peripheral IV catheter with 3 mL of normal saline every 8 hours., Pre-op 0.9% NaCl injection PRN, Starting on Fri10/21/22 at 0833, Until Fri10/21/22 at 1227, Intra-op $ Given 10/21/2022 7:43 AM CDT 20 mL Operative Site heparinized saline 2 units/mL infusion CONTINUOUS PRN, Starting on Fri10/21/22 at 0750, Until Fri10/21/22 at 1227, Intra-op $ New Bag/Syringe 10/21/2022 7:50 AM CDT 1,000 mL lidocaine 2% - EPINEPHrine 1:100,000 injection PRN, Starting on Fri10/21/22 at 0743, Until Fri10/21/22 at 1227, Intra-op $ Given 10/21/2022 7:43 AM CDT 20 mL Operative Site lidocaine PF (Xylocaine MPF) 1 % injection 0.2 mL 0.2 mL, Infiltration, PRE-OP ONCE, 1 dose, On Fri10/21/22 at 0645, May be used (0.5 ml locally to anesthetize prior to insertion). For patients not allergic to local anesthetics., Pre-op $ Given 10/21/2022 7:16 AM CDT 0.2 mL documented in this encounter Active and Recently Administered Medications Times are shown in CDT. Scheduled Medication Order 10/19/2022 10/20/2022 10/21/2022 0.9% NaCl injection 3 mL(Linked Group 1) 3 mL, Intracatheter, EVERY 8 HOURS, First dose on Fri10/21/22 at 0645, Until Discontinued, Flush peripheral IV catheter with 3 mL of normal saline every 8 hours., Pre-op 0645 (Due) ceFAZolin (Ancef) 2,000 mg in 50 ml IVPB (COMPLETED) 2,000 mg (2 g), at 100 mL/hr, Intravenous, ONCE, 1 dose, On Fri10/21/22 at 0645, Administer 30 minutes prior to surgical incision., Indication for anti-infective therapy: Surgical prophylaxis, Pre-op 0730 ($ Given - Prov ider: Dolores Brokc APRN-FURNACE CONVERTER) lidocaine PF (Xylocaine MPF) 1 % injection 0.2 mL (COMPLETED) 0.2 mL, Infiltration, PRE-OP ONCE, 1 dose, On Fri10/21/22 at 0645, May be used (0.5 ml locally to anesthetize prior to insertion). For patients not allergic to local anesthetics., Pre-op 0716 ($ Given - Prov ider: Estiven Grant RN) Continuous Medication Order 10/19/2022 10/20/2022 10/21/2022 0.9% NaCl infusion at 20 mL/hr, Intravenous, PRE-OP CONTINUOUS, Starting on Fri10/21/22 at 0645, Until Fri10/21/22 at 1227, For Dialysis or Chronic Renal Failure patients. Use 500 ml bag and micro drip tubing, Pre-op 0716 ($ New Bag/Syri nge - Provider: Estiven Grant RN)0724 (Rate Change - Provider: ECHO Magallanes)0828 (Paused - Provider: ECHO Magallanes - Comment: Switch to gravity)0829 (Restarted - Provider: ECHO Magallanes) PRN Medication Order 10/19/2022 10/20/2022 10/21/2022 0.9% NaCl injection 1-10 mL(Linked Group 1) 1-10 mL, Intracatheter, PRN, Other, peripheral line flush, Starting on Fri10/21/22 at 0630, Until Fri10/21/22 at 1227, Flush peripheral IV catheter with 1-10 mL of normal saline before and after medications and prn to clear blood from the line or to verify patency., Pre-op 0.9% NaCl injection PRN, Starting on Fri10/21/22 at 0833, Until Fri10/21/22 at 1227, Intra-op 0743 ($ Given - Prov ider: Mario Iyer MD - Comment: mixed with lidocaine 2% epuinephrine 1:414605 :20 cc) heparinized saline 2 units/mL infusion CONTINUOUS PRN, Starting on Fri10/21/22 at 0750, Until Fri10/21/22 at 1227, Intra-op 0750 ($ New Bag/Syri nge - Provider: Mario Ieyr MD - Comment: used as flush during procedure) lidocaine 2% - EPINEPHrine 1:100,000 injection PRN, Starting on Fri10/21/22 at 0743, Until Fri10/21/22 at 1227, Intra-op 0743 ($ Given - Prov ider: Mario Iyer MD - Comment: diluted with 20 cc injectable NS) Linked Groups Order Group 1: SALINE LOCK, INSERT AND MAINTAIN (CANCELED) Routine, CONTINUOUS, Starting on Fri10/21/22 at 0645, Until Specified, Pre-op, New collection And 0.9% NaCl injection 3 mLJump to med 3 mL, Intracatheter, EVERY 8 HOURS, First dose on Fri10/21/22 at 0645, Until Discontinued, Flush peripheral IV catheter with 3 mL of normal saline every 8 hours., Pre-op And 0.9% NaCl injection 1-10 mLJump to med 1-10 mL, Intracatheter, PRN, Other, peripheral line flush, Starting on Fri10/21/22 at 0630, Until Fri10/21/22 at 1227, Flush peripheral IV catheter with 1-10 mL of normal saline before and after medications and prn to clear blood from the line or to verify patency., Pre-op documented in this encounter Care Teams Superintendent Pier Relationship Specialty Start Date End Date Kwame Berg MD PCP - General Internal Medicine 01/19/19 [place] [id number] [address] Orthopedic Surgery Orthopedic Surgery 10/13/19 documented as of this encounter
--- OUTSIDE RECORDS SUMMARY | 2024-04-25 21:18 | XMS_ITS | Referral Summary ---
Author Organization [facility] Address [address] [place] [address] Care Team Providers Care Snuff Maker Name Role Phone Kwame Berg MD Primary Care Provider [phone] Dylon Agudelo MD Unavailable [phone] Source Comments [facility],non-owned Affiliates and Associated Physician Practices is amultiple site organization consisting of ambulatory clinics and hospital sitesin [place], [place], [place] and [place]. This disclosure is being madepursuant to the Care Everywhere program and may not contain all information available regarding this patient. Last updated 18.[facility] Encounters Date Type Department Care Team Description 02/23/2024 11:47 AM CDT - 02/23/2024 11:59 PM CDT Hospital Encounter [facility] Vascular Services [address] [place] [address], [address] [address] Mario Iyer MD Charles, Thomas B, MD Discharge Disposition: Home or Self Care from Last 3 Months Allergies No known active allergies Medications * [...] Primary osteoarthritis of left hip 06/29/2019 Immunizations Name Administration Dates Next Due HEP B VACCINE, ADULT 3 DOSE 09/18/2021,0 01/13/2021,09/21/2020,2020,06/17/2020,06/17/2019 INFLUENZA 02/08/2021, 0,01/13/2019,2018,12/27/2018,03/17/2018 INFLUENZA VACCINE, HIGH-DOSE , QUADR. (FLUZONE HIGH-DOSE QUADRIVALENT; 65Y+), 0.7 ML (HD-IIV4) 01/19/2020 PNEUMOCOCCAL PCV, HISTORIC VACCINE 12/25/2021,,05/25/2012 Social History Tobacco Use Types Packs/Day Years [...] Mass Index 18.25 02/23/2024 12:19 PM CDT Functional Status Functional Status Response Date of [...] person have difficulty concentrating/remembering/making decisions? Yes 01/17/2020 Plan of Treatment Upcoming Encounters Date Type Department Care Team (Late st Contact Info) Description 08/23/2024 1:00 PM CDT Appointment [facility] Health Vascular Services [address] [facility], [address] [place] [address] [place] [id number] [facility] [address] [place] [address] [place] [address] [facility] [address] [place] [address] Medical Devices Implanted Type Area Glove Cutter Device Identifier Shelf Expiration Date Model / Serial / Lot [id number] Aetabular Shell 3 Hole Porous Plasma, Cementless Implanted:Qty: 1 on 01/12/2020 by Dylon Agudelo MD at [facility] Left: Hip [employer] 12/23/2028 [id number] / / [id number] Bone Screw Self Tapping 6.5 Diameter/ 30mm Length Implanted:Qty: 1 on 01/12/2020 by Dylon Agudelo MD at [facility] Left: Hip [employer] 06/25/2029 / / [id number] Bone Screw Self Tapping 6.5mm Diameter/ 20mm Length Implanted:Qty: 1 on 01/12/2020 by Dylon Agudelo MD at [facility] Left: Hip [employer] 01/25/2027 / / [id number] Vivacit E Vitamine Highly Crosslinked Polyethylene Liner Implanted:Qty: 1 on 01/12/2020 by Dylon Agudelo MD at [facility] Left: Hip [employer] 01/26/2024 [id number] / / [id number] Taperlock Complete Micro Primary Femoral Stem 6x97.5 Mm Implanted:Qty: 1 on 01/12/2020 by Dylon Agudelo MD at [facility] Left: Hip [employer] 04/20/2028 [id number] / / [id number] Ceramic Head Implanted:Qty: 1 on 01/12/2020 by Dylon Agudelo MD at [facility] Left: Hip [employer] 08/16/2029 [id number] / / [id number] Slv Centering -3mm Ofst Tpr Hip Blx D Ty Implanted:Qty: 1 on 01/12/2020 by Dylon Agudelo MD at [facility] Left: Hip [employer] 10/13/2029 [id number] / / [id number] Graft Vasc 4-7mm 40cm Grtx Std Tpr Ln - [id number] Implanted:Qty: 1 on 03/15/2020 by Mario Iyer MD at [facility] Right: Arm [employer] 12/26/2024 [id number] / [id number] / Graft Vasc 4-7mm 45cm Grtx Std Tpr - [id number] Implanted:Qty: 1 on 10/21/2022 by Mario Iyer MD at [facility] Left: Arm [employer] 07/22/2027 [id number] / [id number] / Explanted Type Area Glove Cutter Device Identifier Shelf Expiration Date Model / Serial / Lot Bone Screw 6.5 Mm Diameter/ 25mm Length Explanted:Qty: 1 on 01/12/2020 at [facility] Left: Hip [employer] 03/27/2029 / / [id number] Procedures Procedure Name Priority Date/Time Associated Diagnosis Comments CARDIAC RHYTHM STRIP ORDER 02/24/2024 6:15 PM CDT from Last 3 Months Results * CARDIAC RHYTHM STRIP ORDER (02/24/2024 6:15 PM CDT) Narrative 02/24/2024 6:15 PM CDT Ordered by an unspecified provider. Scanned Document CARDIAC SERVICES ORD ERABLES from Last 3 Months Administered Medications Advance Directives * Full Code (Latest Code Status on File) Date Activated Date Inactivated Comments 01/21/2020 8:10 AM 02/01/2020 5:54 PM * Full Code Date Activated Date Inactivated Comments 01/12/2020 3:45 PM 01/20/2020 5:13 PM * Full Code Date Activated Date Inactivated Comments 05/12/2019 9:20 AM 05/28/2019 1:01 PM Care Teams Snuff Maker Relationship Specialty Start Date End Date Kwame Berg MD PCP - General Internal Medicine 01/19/19 [place] [id number] [address] Orthopedic Surgery Orthopedic Surgery 10/13/19
--- OUTSIDE RECORDS SUMMARY | 2024-04-25 21:18 | XMS_ITS | Encounter Summary ---
Author Organization [facility] Address [address] [place] [address] Care Team Providers Care Senior Medical Technologist Name Role Phone Kwame Berg MD Primary Care Provider [phone] Dylon Agudelo MD Unavailable [phone] Reason for Referral * (Routine) - Open Specialty Diagnoses / Procedures Referred By Vivienne t Referred To Contact Procedures [place] [address] [facility] [address] [place] [address] Referral ID Status Reason Start Date Expiration Date Visits Re quested Visits Authorized [id number] Open 11/24/2023 11/23/2024 1 1 * Radiology Services (Routine) - Closed Specialty Diagnoses / Procedures Referred By Vivienne t Referred To Contact Vascular Lab Diagnoses ESRD (end stage renal disease) (HCC) Procedures IR [place] [address] [facility] [address] [place] [address] [facility] [address] [facility], [address] [place] [address] Referral ID Status Reason Start Date Expiration Date Visits Re quested Visits Authorized [id number] Closed 10/10/2023 11/24/2023 1 1 Reason for Visit * Radiology Services (Routine) - Closed Specialty Diagnoses / Procedures Referred By Contac t Referred To Contact Vascular Lab Diagnoses ESRD (end stage renal disease) (HCC) Procedures IR ANGIO [place] [address] [facility] [address] [place] [address] [facility] [address] [facility], [address] [place] [address] Referral ID Status Reason Start Date Expiration Date Visits Re quested Visits Authorized [id number] Closed 10/10/2023 11/24/2023 1 1 Encounter Details Date Type Department Care Team (Latest Contact Info) Description 11/24/2023 11:52 AM CDT - 11/24/2023 11:59 PM CDT Hospital Encounter [facility] Health Vascular Services [id number] [place] [address], [address] [place] [address] [place] [id number] [place] [address] [address] [place] [address] Discharge Disposition: Home or Self [...] Sign Reading Time Taken Comments Blood Pressure 193/71 11/24/2023 1:45 PM CDT Pulse 59 11/24/2023 1:45 PM CDT Temperature 36.7 ??C (98 ??F) 11/24/2023 12:14 PM CDT Respiratory Rate 8 11/24/2023 1:45 PM CDT Oxygen Saturation 96% 11/24/2023 1:45 PM CDT Inhaled Oxygen Concentration - - Weight 55.3 kg (122 lb) 11/24/2023 12:14 PM CDT Height 172.7 cm (5' 8) 11/24/2023 12:14 PM CDT Body Mass Index 18.55 11/24/2023 12:14 PM CDT documented in this encounter Functional [...] Progress Notes * Vee Esqueda RN - 11/24/2023 12:13 PM CDT Pt has left upper arm AVG, pulsatile proximal to anastomosis. documented in this encounter H&P Notes * Mario Iyer MD - 11/24/2023 1:00 PM CDT Chief Complaint ESRD History and Physical Jules Mitchell is a 78 year old male. Patient has a left arm access being used for dialysis. Patient had imaging last 07/2023 showing Greater than 70 percent stenosis of the venous anastomosis resolved after angioplasty. Greater than 50 percent stenosis of the central axillary/subclavian junction with less than 30 percent residual stenosis. Patient presents with increased pulsatility. Past Medical History: Diagnosis Date Cancer (HCC) 1999 pt unsure of type of cancer- Chronic kidney disease Dementia (HCC) ESRD (end stage renal disease) ([facility]) [facility] -,,sat as of 11/18/2022 High blood pressure Pure hypercholesterolemia Stroke (HCC) 2004 per pt Past Surgical History: Procedure Laterality Date A-V SHUNT CREATION Right 03/15/2020 Right; RIGHT ARM DIALYSIS GRAFT A-V SHUNT CREATION Left 10/21/2022 Left; left arm dialysis fistula transposition with graft. HIP ARTHROPLASTY, TOTAL Left 01/12/2020 LEFT POSTERIOR ARTHROPLASTY TOTAL HIP HIP ARTHROPLASTY, TOTAL 01/12/2020 LEFT POSTERIOR ARTHROPLASTY TOTAL HIP INSERTION DIALYSIS CATHETER Right 04/2019 r chest tunneled cath OTHER SURGERY Testicular surgery per nephew but not positive?? VASCULAR PROCEDURE/SURGERY 10/20/2019 RIGHT UPPER ARM ARTERIOVENOUS FISTULA VASCULAR PROCEDURE/SURGERY Left 06/24/2022 Left; LEFT UPPER ARM ARTERIO-VENOUS (AV) FISTULA No Known Allergies Current Outpatient Medications on File Prior to Visit Medication Sig Dispense Refill acetaminophen (Tylenol) 500 MG tablet Take 1 (one) tablet by mouth every 6 hours as needed for Fever or Pain Maximum allowable Acetaminophen amount = 4 Grams (4000 mg) / 24 hours. (Patient not taking: Reported on 03/31/2023) 0 allopurinol (ZYLOPRIM) 100 MG tablet Take 1 (one) tablet by mouth once daily apixaban (ELIQUIS) 2.5 MG tablet Take 1 tablet by mouth 2 times daily 60 tablet 0 atorvastatin (LIPITOR) 20 MG tablet Take 1 (one) tablet by mouth at bedtime 0 calcium carbonate (Tums) 500 MG chew tablet Take 1 (one) tablet by mouth daily with food cyanocobalamin (Vitamin B-12) 1000 MCG tablet Take 1 (one) tablet by mouth every morning dilTIAZem (CARDIZEM) 30 MG tablet Take 1 (one) tablet by mouth 3 times daily folic acid (Folvite) 1 MG tablet Take 1 (one) tablet by mouth once daily furosemide (LASIX) 80 MG tablet Take 1 (one) tablet by mouth 2 times daily levETIRAcetam (KEPPRA) 100 MG/ML oral solution Take 5 mL by mouth 2 times daily LORazepam (Ativan) 0.5 MG tablet Take 1 (one) tablet by mouth every 12 hours as needed FOR ANXIETY polyethylene glycol 3350 (Miralax) 17 GM/SCOOP powder MIX 1 SCOOP IN WATER AND DRINK BY MOUTH ONCE A DAY rOPINIRole (REQUIP) 0.5 MG tablet Take 1 (one) tablet by mouth Three times a week sevelamer carbonate (RENVELA) 800 MG Take 1 (one) tablet by mouth 3 times daily with meals tamsulosin (FLOMAX) 0.4 MG capsule Take 1 (one) capsule by mouth at bedtime At the same time every day after a meal. No current facility-administered medications on file prior to visit. Social History Tobacco Use Smoking status: Former Types: Cigarettes Quit date: 10/12/2012 Years since quittin.1 Smokeless tobacco: Never Vaping Use Vaping Use: Never used Substance Use Topics Alcohol use: Not Currently Drug use: Never Family History Problem Relation Name Age of Onset Hypertension Mother Hypertension Sister Diabetes - Type 2 Sister Physical Examination [...] patient who understands and wishes to proceed. * Mario Iyer MD - 11/24/2023 11:54 AM CDT This patient? s prior H&P was reviewed, the patient was examined and no change has occurred in the patient's condition since the prior H&P was completed. Mario Iyer MD documented in this encounter Procedure Notes * Mario Iyer MD - 11/24/2023 2:21 PM CDTAssociated Order(s): IR ANGIO AV SHUNT IMAGING [facility] [place] 1945 DATE OF PROCEDURE: 11/24/2023 ORDERING PHYSICIAN: Mario Iyer MD PROCEDURE: Left upper arm AV graft fistulogram with placement of 8 x 5 VIABAHN endovascular stent at the venous anastomosis. INDICATIONS FOR PROCEDURE: Increased pulsatility of left upper arm AV graft with prolonged bleedingat dialysis. DESCRIPTION OF PROCEDURE: Once the patient was prepped and draped in the usual sterile fashion he was given 1 percent lidocaine as local anesthetic. He tolerated this well. The micropuncture set was used to cannulate the left upper arm AV graft and fistulogram was obtained. This looks excellent except for the area just past the venous anastomosis where there was high-grade stenosis. The tract wasdilated and a 8 Austrian sheath was inserted. We used a 6 x 4 balloon angioplasty the area in the left axillary vein and AV graft venous anastomosis. Once this was completed, we then inserted the 8 x 5endovascular stent across the area. Stent was released and this was followed by an 8 x 4 balloon for angioplasty. Completion angiography looked excellent. Patient tolerated the procedure well was found to be stable postoperatively. Preoperatively the patient understood the risks of procedure be bleeding and infection want to proceed. During the procedure we used 45 cc of Isovue and 7.0 mGy. DICTATED BY: Mario Iyer M.D./isacc Interventional [...] Info) Description 08/23/2024 1:00 PM CDT Appointment [facility] Health Vascular Services [address] [place] [address], [address] [address] Mario Iyer MD [address] [place] [address] [place] [address] Osmany Molina MD [address] [place] [address] documented as of this encounter Procedures Procedure Name Priority Date/Time Associated Diagnosis Comments CARDIAC RHYTHM STRIP ORDER 11/25/2023 10:02 PM CDT IR ANGIO AV SHUNT IMAGING Routine 11/24/2023 1:41 PM CDT ESRD (end stage renal disease) (HCC) documented in this encounter Results * CARDIAC RHYTHM STRIP ORDER (11/25/2023 10:02 PM CDT) Narrative 11/25/2023 10:02 PM CDT Ordered by an unspecified provider. Scanned Document CARDIAC SERVICES ORD ERABLES * IR ANGIO AV SHUNT IMAGING (11/24/2023 1:41 PM CDT) Anatomical Region Laterality Modality Lower Extremity, Upper Extremity, Chest X-Ray Angiography Narrative 11/24/2023 2:21 PM CDT Mario Iyer MD ? 11/24/2023 ??2:26 PM [facility] 1945 DATE OF PROCEDURE: 11/24/2023 ORDERING PHYSICIAN: [...] ??The tract was dilated and a 8 Austrian sheath was inserted. ??We used a 6 [...] ? None Mario Iyer MD IR ORDERABLES documented in this encounter Visit Diagnoses Diagnosis Encounter regarding vascular access for dialysis for end-stage renal disease (HCC)- Primary End stage renal disease ESRD (end stage renal disease) (HCC) End stage renal disease documented in this encounter Administered Medications Inactive Administered Medications - up to 3 most recent administrations Medication Order MAR Action Action Date Dose Rate Site 0.9% NaCl infusion at 50 mL/hr, Intravenous, INTRA-PROCEDURE MULTIPLE, Starting on Fri11/24/23 at 1231, Until Fri11/25/23 at 0142, Intra-procedure (IR) $ New Bag/Syringe 11/24/2023 1:42 PM CDT 100 mL 50 mL/hr iopamidol (Isovue 300) 61 % contrast Intravenous, INTRA-PROCEDURE MULTIPLE, Starting on Fri11/24/23 at 1231, Until Fri11/25/23 at 0142, Intra/Post-procedure $ Given - Contrast 11/24/2023 1:43 PM CDT 15 mL $ Given - Contrast 11/24/2023 1:42 PM CDT 30 mL lidocaine PF (Xylocaine MPF) 1 % injection Infiltration, INTRA-PROCEDURE MULTIPLE, Starting on Fri11/24/23 at 1231, Until Fri11/25/23 at 0142, Intra-procedure (IR) $ Given 11/24/2023 1:42 PM CDT 10 mg documented in this encounter Care Teams Senior Medical Technologist Relationship Specialty Start Date End Date Kwame Berg MD PCP - General Internal Medicine 01/19/19 [place] [id number] [address] Orthopedic Surgery Orthopedic Surgery 10/13/19 documented as of this encounter
--- OUTSIDE RECORDS SUMMARY | 2024-04-25 21:18 | XMS_ITS | Data Portability ---
Author Organization [facility] [employer], Main Office Address [address] [place] [address] Assessment No assessment recorded. Plan of Treatment Reminders Order Date Submit Date Provider Last Modified By Organization Details Last Modified Time Details Appointments None recorded. Lab None recorded. Referral None recorded. Procedures None recorded. Surgeries None recorded. Imaging US, bladder 023 023 9 [facility], [address] [place] [address], [address], 10:51:58 Medication Orders None recorded. Patient TargetsNo targets recorded. Patient InstructionsNo instructions recorded. Reason for Referral None Reported. Results Created Date Observation Date Name Description Value Unit Range Abnormal Flag Note LastModifiedBy Organization Detail LastModifiedTime 09/11/1909/10/2022 urina lysis , dipst ick Leukocytes (reference range: negative carmelita/??l) Large Not Available [address], [address], 09/10/2022 17:15:40 09/11/19 23 09/10/2022 urina lysis , dipst ick Nitrite (reference rage: negative mg/dl) negati ve Not Available [address], [address], 09/10/2022 17:15:40 09/11/19 23 09/10/2022 urina lysis , dipst ick Urobilinogen (reference range: 0.2-1 mg/dl) 0.2 Not Available [address], [address], [address], 09/10/2022 17:15:40 09/11/19 23 09/10/2022 urina lysis , dipst ick Protein (reference range: negative mg/dl) Large Not Available s_[address], [address], 09/10/2022 17:15:40 09/11/19 23 09/10/2022 urina lysis , dipst ick pH (reference range: 5-7) 7.5 Not Available [address], [address] [place] [address], [place], [address], 09/10/2022 17:15:40 09/11/19 23 09/10/2022 urina lysis , dipst ick Blood (reference range: negative Aly/??l) Large Not Available [address], [address], [address], 09/10/2022 17:15:40 09/11/19 23 09/10/2022 urina lysis , dipst ick Specific [place] (reference range: 1.005-1.030) 1.025 Not Available [address] [address], [place], [address], 09/10/2022 17:15:40 09/11/19 23 09/10/2022 urina lysis , dipst ick Ketone (reference range: negative mg/dl) Negati ve Not Available [address], [address], [address], 09/10/2022 17:15:40 09/11/19 23 09/10/2022 urina lysis , dipst ick Bilirubin (reference range: negative mg/dl) Negati ve Not Available [address] [address], [place], [address], 09/10/2022 17:15:40 09/11/19 23 09/10/2022 urina lysis , dipst ick Glucose (reference range: negative mg/dl) Negati ve Not Available [address] [address], [place], [address], 09/10/2022 17:15:40 09/11/19 23 09/10/2022 urina lysis , dipst ick Appearance Turbid Not Available [address], [address], 09/10/2022 17:15:40 09/11/19 23 09/10/2022 urina lysis , dipst ick Color Pale Yellow Not Available [address] [address], [place], [address], 09/10/2022 17:15:40 10/09/19 22 10/08/2021 US, bladd er No observ ation record ed. [id number] [address] [address], [place], [address], 06/27/2022 01:01:52 11/06/19 22 11/05/2021 US, bladd er No observ ation record ed. [id number], [address], 06/27/2022 01:01:52 04/08/20 22 04/08/2022 US, bladd er No observ ation record ed. [id number] [facility] [address], [address], [place], [address], 06/27/2022 01:01:52 07/24/19 23 07/23/2022 US, bladd er No observ ation record ed. [email or web address] [facility] [address], [address], [place], [address], 08/26/2022 13:49:11 Result Notes None recorded. Problems Name Problem SNOMED Code Status Onset Date Resolution Date Notes Provider Name and Address Organization Details Recorded Time Retention of urine 528202455 Active 2022 GENESIS Aguilar, [employer] 3 14:46:54 Recurrent urinary tract infection 894783246 Active 2022 GENESIS Aguilar, [employer] 3 17:15:50 Acute urinary tract infection 821314468 Active 2022 Olivier Reyes NP [address] [address], [place], [address], [employer] 3 11:23:29 Lower urinary tract symptoms due to benign prostatic hypertrophy 9479327665716 1 Active 2022 Olivier Reyes NP [address] [address], [place], [address], [employer] 3 10:08:56 Urgent desire to urinate 41607191 Active 2022 Olivier Reyes NP [address], [address], [employer] 3 14:45:13 Problem Notes None recorded. Procedures Surgical History Date Name Laterality Status Provider Name and Address Organization Details Recorded Time 09/29/19 24 other completed Neli Riggs MA [employer] 10/01/2023 10:46:00 total replacement of hip completed Not Available [facility] 06/27/2022 00:58:37 Imaging Results Imaging Date Name Status LastModified by Organiz ation Details LastModified Time 04/08/2022 US, bladder completed [id number] [facility] [address], [address], [address], 06/27/2022 01:01:52 10/08/2021 US, bladder completed [id number] [facility] [address], [address], [address], 06/27/2022 01:01:52 11/05/2021 US, bladder completed [id number] [facility] [address], [address], 06/27/2022 01:01:52 07/23/2022 US, bladder completed [facility] [address], [address], [address], 08/26/2022 13:49:11 Procedure Notes None recorded. Medical Equipment None Reported. Medications Name Sig Start Date Stop Date Status Note LastModified by Organization Details LastModified Time Keppra 500 mg tablet Take 1 tablet twice a day by oral route. 2021 active Not Available Not Available Not Avai lable atorvastati n 20 mg tablet TAKE 1 TABLET BY MOUTH EVERY DAY active Not Available Not Available No t Available albuterol sulfate 2.5 mg/3 mL (0.083 %) solution for nebulizatio n 11/05 completed Not Available Not Available Not Available hydrocodone 5 mg-acetamin ophen 325 mg tablet TAKE 1 TABLET BY MOUTH EVERY 6 HOURS NEEDED FOR PAIN active Not Available Not Available No t Available ondansetron HCl 4 mg tablet TAKE 1 TABLET BY MOUTH EVERY 8 HOURS 10/01 completed Not Available Not Available Not Available prednisone 20 mg tablet TAKE 3 TABLETS BY MOUTH EVERY DAY 10/01 completed Not Available Not Available Not Available amlodipine 5 mg tablet TAKE 1 TABLET BY MOUTH EVERY DAY 10/01 completed Not Available Not Available Not Available allopurinol 100 mg tablet TAKE 1 TABLET BY MOUTH EVERY DAY active Not Available Not Available No t Available sulfamethox azole 800 mg-trimetho prim 160 mg tablet TAKE 1 TABLET BY MOUTH TWICE DAILY 10/01 completed Not Available Not Available Not Available lidocaine-p rilocaine 2.5 %-2.5 % topical cream APPLY TO ACCESS SITE PRIOR TO DIALYSIS THREE TIMES WEEKLY active Not Available Not Available No t Available Nepro oral liquid Take by oral route. 2021 active Not Available Not Available Not Avai lable tamsulosin 0.4 mg capsule active Not Available Not Available Not Available furosemide 80 mg tablet TAKE 1 TABLET BY MOUTH TWICE DAILY active Not Available Not Available No t Available doxycycline monohydrate 100 mg capsule 10/01 completed Not Available Not Available Not Available ropinirole 0.5 mg tablet TAKE 1 TABLET BY MOUTH THREE TIMES PER WEEK ON DIALYSIS DAYS active Not Available Not Available No t Available lisinopril 10 mg tablet TAKE 1 TABLET BY MOUTH EVERY DAY active Not Available Not Available No t Available docusate sodium 100 mg capsule TAKE ONE CAPSULE BY MOUTH ONCE DAILY 10/01 completed Not Available Not Available Not Available diltiazem CD 120 mg capsule,ext ended release 24 hr TAKE 1 CAPSULE BY MOUTH EVERY DAY 10/01 completed Not Available Not Available Not Available folic acid 1 mg tablet TAKE 1 TABLET BY MOUTH EVERY DAY active Not Available Not Available No t Available lisinopril 5 mg tablet TAKE 1 TABLET BY MOUTH EVERY DAY 10/01 completed Not Available Not Available Not Available polyethylen e glycol 3350 17 gram/dose oral powder MIX AND DRINK 1 CAPFUL BY MOUTH EVERY DAY active Not Available Not Available No t Available albuterol sulfate HFA 90 mcg/actuati on aerosol inhaler 11/05 completed Not Available Not Available Not Available diltiazem 30 mg tablet TAKE 1 TABLET BY MOUTH THREE TIMES DAILY active Not Available Not Available No t Available cefdinir 300 mg capsule Take 1 capsule every 12 hours by oral route for 7 days. active Not Available Not Available No t Available albuterol sulfate concentrate 5 mg/mL(0.5 %) solution for nebulizatio n active Not Available Not Available Not Available diltiazem 60 mg tablet active Not Available Not Available Not Available levetiracet am 100 mg/mL oral solution TAKE 5 ML BY MOUTH TWICE DAILY active Not Available Not Available No t Available lanthanum 500 mg chewable tablet CHEW AND SWALLOW ONE TABLET THREE TIMES DAILY WITH MEALS active Not Available Not Available No t Available Emla 2021 active Not Available Not Available Not Avai lable sevelamer carbonate 800 mg tablet TAKE 2 TABLETS BY MOUTH THREE TIMES DAILY active Not Available Not Available No t Available sevelamer carbonate 0.8 gram oral powder packet 10/01 completed Not Available Not Available Not Available Eliquis 2.5 mg tablet TAKE 1 TABLET BY MOUTH TWICE DAILY active Not Available Not Available No t Available Tylenol 325 mg capsule Take by oral route. 04/08 completed Not Available Not Available Not Available Vitals Date Recorded Body mass index (BMI) Body height Oxygen saturation Oxygen saturation in Arterial blood by Pulse oximetry Heart rate Body temperature Body weight Systolic blood pressure Diastolic blood pressure Provider Name and Address Organization Details Last Updated DateTime 2 15.3 kg/m2 182.88 cm 95 % 95 % 65 /min 98.2 [degF] 02812.9 4 g 103 mm[Hg] 46 mm[Hg] Not Available [facility] 3 00:59:17 Date Recorded Body height Provider Name an d Address Organization Details Last Updated DateTime 10/08/2021 182.88 cm Not Available [facility] 3 00:59:17 Date Recorded Body height Provider Name an d Address Organization Details Last Updated DateTime 11/05/2021 182.88 cm Not Available [facility] 3 00:59:17 Date Recorded Body height Provider Name an d Address Organization Details Last Updated DateTime 04/08/2022 182.88 cm Not Available [facility] 3 00:59:17 Social History Question Answer Notes LastModified by Organizat ion Details LastModified Time Tobacco Smoking Status Never Smoker Not Available [facility] 06/27/2022 00:58:13 What Is Your Level Of Alcohol Consumption? None [id number] Information not available 06/27/2022 What Is Your Level Of Caffeine Consumption? None [id number] Information not available 06/27/2022 Do You Use Any Illicit Or Recreational Drugs? No [id number] Information not available 06/27/2022 Has Tobacco Cessation Counseling Been Provided? No [id number] Information not available 06/27/2022 Do You Or Have You Ever Used Any Other Forms Of Tobacco Or Nicotine? No [id number] Information not available 06/27/2022 Sex: Unknown Functional Status None recorded. Mental Status None recorded. Family History Relationship Description Onset Age of this Age Resolved Age Notes LastModified by Organization Details LastModified Time Unspecified Relation Diabetes mellitus [id number] Not available 06/27/2022 00:58:38 Unspecified Relation Hypertensive disorder [id number] Not available 06/27/2022 00:58:39 Medical History Condition Response CYSTITIS N BLINDNESS N RHEUMATIC FEVER N KIDNEY STONES N BLADDER PROBLEMS N Enlarged Prostate N SLEEP APNEA N MRSA N INFECTIOUS DISEASE N LUNG DISEASE/DISORDER N HEART ARRHYTHMIA N PROSTATE N INSOMNIA N HISTORY OF DRUG ABUSE N RADIATION / CHEMOTHERAPY N COPD N HIGH CHOLESTEROL / HYPERLIPIDEMIA N HYPERTHYROIDISM N UTI N BLOOD DISEASES N EDEMA N HYPOTHYROIDISM N SHINGLES N DEPRESSION (INCLUDING POST ) N BOWEL PROBLEMS N BACK / NECK PROBLEMS N HAVE YOU BEEN HOSPITALIZED OR SEEN IN [facility] IN THE PAST YEAR ? N STROKE/TIA N THYROID DISEASE N BENIGN PROSTATIC HYPERPLASIA N DIALYSIS N OBESITY N GERD/NAUSEA N ANEURYSM N OSTEOPOROSIS N URINARY/BLADDER/KIDNEY PROBLEMS N Increased Urination N CORONARY ARTERY DISEASE (CAD) N ARTHRITIS N USE OF BLOOD THINNERS N NO SIGNIFICANT PAST MEDICAL HISTORY N DIABETES, TYPE N EMPHYSEMA N PARKINSON N GASTROINTESTINAL DISORDER N GASTROINTESTINAL BLEEDING N BLOOD CLOTS N Difficulty Urinating N HEPATITIS / LIVER DISEASE N ASTHMA N CATARACTS N GOUT N SLEEP DISORDER N ALZHEIMER'S DISEASE N HERPES N ERECTILE DYSFUNCTION N SEIZURES/EPILEPSY N HEADACHES/MIGRAINES N GI PROBLEMS N PACEMAKER N Low Testosterone N HEART MURMUR N DIZZINESS N KIDNEY DISEASE Y HEART DISEASE/HEART PROBLEMS N AIDS/HIV N MULTIPLE SCLEROSIS N LIVER DISEASE N MALE HYPOGONADISM N HYPERTENSION Y CANCER: SPECIFY N TOURETTE'S N BLOOD TRANSFUSION N ANESTHESIA COMPLICATIONS N ANEMIA/BLOOD DISORDER N ATRIAL FIBRILLATION N AUTOIMMUNE DISEASE N TUBERCULOSIS N GLAUCOMA N Past Encounters Encounter ID Performer Location Encounter Start Date Encounter Closed Date Diagnosis/Indication Diagnosis SNOMED-CT Code Diagnosis ICD10 Code [id number] [facility] [address] [address] 10/01/2021 00:00:00 10/01/2021 14:03:53 [id number] [facility] [address] [address] 10/08/2021 00:00:00 10/08/2021 12:43:17 [id number] [facility] [address] [address] 11/05/2021 00:00:00 11/05/2021 12:25:34 [id number] [facility] [address] [address] 04/08/2022 00:00:00 04/08/2022 17:30:10 [id number] Olivier Reyes NP [facility] [address] [address] 07/23/2022 14:38:43 07/23/2022 14:48:09 Retention of urine 193583769 R33.9 Health Concerns Section Related Observation LastModified by Organization Detai ls LastModified Time None Recorded Concern Status LastModified by Organization Details LastModified Time None Recorded Advance Directives Directive None Recorded Payers Encounter Date Sequence Insurance Name Policy Number Policy Fry Covered Member ID Fry Member ID Guarantor Name 07/23/2022 1 MEDICARE-[place] (MEDICARE) Jules Mitchell [id number] Jules Mitchell
--- OUTSIDE RECORDS SUMMARY | 2024-04-25 21:18 | XMS_ITS | Encounter Summary ---
Author Organization [facility] Address [address] [facility] [place] [address] Care Team Providers Care Metal Drawer Name Role Phone Kwame Berg MD Primary Care Provider [phone] Dylon Agudelo MD Unavailable [phone] Reason for Referral * Radiology Services (Routine) - Closed Specialty Diagnoses / Procedures Referred By Contac t Referred To Contact Diagnoses ESRD (end stage renal disease) (HCC) Procedures [place] [address] [employer] [address] [address] Referral ID Status Reason Start Date Expiration Date Visits Re quested Visits Authorized [id number] Closed 11/18/2022 11/18/2023 1 1 * Radiology Services (Routine) - Closed Specialty Diagnoses / Procedures Referred By Contac t Referred To Contact Diagnoses ESRD (end stage renal disease) (HCC) Procedures IR [place] [address] [employer] [address] [place] [address] Referral ID Status Reason Start Date Expiration Date Visits Re quested Visits Authorized [id number] Closed 11/18/2022 11/18/2023 1 1 Reason for Visit * Reason Comments Post-Op ISRRAEL AVG Encounter Details Date Type Department Care Team (Late st Contact Info) Description 11/18/2022 12:40 PM CDT Office Visit [facility] - Surgery [address] [facility], [address] [place] [address] [place] [address] [facility] [address] [place] [address] ESRD (end stage renal disease) ([facility]) (Primary Dx) Social History Tobacco Use Types [...] - - Weight 55.3 kg (122 lb) 11/18/2022 12:49 PM CDT Height 157.5 cm (5' 2) 11/18/2022 12:49 PM CDT Body Mass Index 22.31 11/18/2022 12:49 PM CDT documented in this encounter Functional [...] this encounter Patient Instructions * Patient Instructions* Antonio Olvera - 11/18/2022 12:51 PM CDT Patient's medications and allergies were reviewed with the patient today. Patient was instructed tocontact primary care physician or ordering provider with any questions regarding medications. Patients presents today for sutures removal from left arm. Steri strips/ mastisol were applied. Patient educated on aftercare. documented in this encounter Progress Notes * Mario Iyer MD - 11/18/2022 12:45 PM CDT Jules Mitchell is a 77 year old male who is here for a postoperative visit following PROCEDURE PERFORMED: 1. Left upper arm arteriovenous graft. 2. Ligation of left upper arm AV fistula. The patient is referred by Naveen Blackman MD. PCP is Kwame Berg MD. Incision: Well healed, sutures removed Thrill/Bruit: Present Plan: Will begin using the access and will schedule fistulogram/cath pull when using well documented in this encounter Plan of Treatment Upcoming Encounters Date Type Department Care Team (Late st Contact Info) Description 08/23/2024 1:00 PM CDT Appointment [facility] [address] [place] [address], [address] [place] [address] [place] [address] [facility] [address] [place] [address] [place] [address] [facility] [address] [place] [address] Pending Results Name Type Priority Associated Diagnoses Date /Time IR [facility]IO [facility] IMAGING Imaging Routine ESRD (end stage renal disease) ([facility]) 12/13/2022 3:48 PM CDT IR CENTRAL LINE REMOVAL Imaging Routine ESRD (end stage renal disease) ([facility]) 12/13/2022 3:48 PM CDT Scheduled Orders Name Type Priority Associated Diagnoses Orde r Schedule IR [facility] Imaging Routine ESRD (end stage renal disease) (HCC) 1 Occurrences starting 11/18/2022 until 11/18/2023 IR CENTRAL LINE REMOVAL Imaging Routine ESRD (end stage renal disease) (HCC) 1 Occurrences starting 11/18/2022 until 11/18/2023 documented as of this encounter Visit Diagnoses Diagnosis ESRD (end stage renal disease) (HCC)- Primary End stage renal disease documented in this encounter Care Teams Metal Drawer Relationship Specialty Start Date End Date Kwame Berg MD PCP - General Internal Medicine 01/19/19 [place] [id number] [address] Orthopedic Surgery Orthopedic Surgery 10/13/19 documented as of this encounter
--- OUTSIDE RECORDS SUMMARY | 2024-04-25 21:18 | XMS_ITS | Encounter Summary ---
Author Organization [facility] Address [facility] [place] [address] Care Team Providers Care Water Pipe Installer Name Role Phone Kwame Berg MD Primary Care Provider [phone] Dylno Agudelo MD Unavailable [phone] Reason for Referral * (Routine) - Open Specialty Diagnoses / Procedures Referred By Vivienne burrell Referred To Contact Vascular Lab Procedures [place] [address] [facility] [address] [place] [address] [facility] [place] [id number] [place] [address], [address] [place] [address] Referral ID Status Reason Start Date Expiration Date Visits Re quested Visits Authorized [id number] Open 02/23/2024 02/22/2025 1 1 Reason for Visit * Radiology Services (Routine) - Closed Specialty Diagnoses / Procedures Referred By Vivienne burrell Referred To Contact Vascular Lab Diagnoses ESRD (end stage renal disease) (HCC) Procedures IR [place] [address] [facility] [address] [place] [address] [facility] [place] [id number] [place] [address], [address] [place] [address] Referral ID Status Reason Start Date Expiration Date Visits Re quested Visits Authorized [id number] Closed 11/25/2023 02/23/2024 1 1 Encounter Details Date Type Department Care Team (Latest Contact Info) Description 02/23/2024 11:47 AM CDT - 02/23/2024 11:59 PM CDT Hospital Encounter [facility] Health Vascular Services [address] [facility], [address] [place] [address] [place] [address] [facility] [address] [place] [address] [place] [address] [facility] [address] [place] [address] Discharge Disposition: Home or Self Care Social [...] Mass Index 18.25 02/23/2024 12:19 PM CDT documented in this encounter Functional [...] tablet by mouth 3 times daily 08/24/2021 fluconazole (Diflucan) 100 MG tablet Take 1 (one) tablet by mouth once daily folic acid (Folvite) 1 MG tablet [...] same time every day after a meal. documented as of this encounter Progress Notes * Abigail Maciel RN - 02/23/2024 12:26 PM CDT ISRRAEL AVG is pulsatile. documented in this encounter H&P Notes * Osmany Molina MD - 02/23/2024 1:00 PM CDT Chief Complaint ESRD History and Physical Jules Mitchell is a 78 year old male. Patient has a left arm access being used for dialysis. Patient had imaging last 10/2023 with stenting venous anastomosis. Patient presents with elevated pressures. Past Medical History: Diagnosis Date Cancer (HCC) 1999 pt unsure of type of cancer- Chronic kidney disease Dementia (HCC) ESRD (end stage renal disease) ([facility]) [facility] -t,th,sat as of 11/18/2022 High blood pressure Pure [...] Social History Tobacco Use Smoking status: Former Current packs/day: 0.00 Types: Cigarettes Quit date: 10/12/2012 Years since quittin.3 Smokeless tobacco: Never Vaping Use Vaping status: Never Used Substance Use Topics Alcohol use: Not Currently [...] who understands and wishes to proceed. * Osmany Molina MD - 02/23/2024 11:50 AM CDT I have reviewed this H&P written on 02/23/2024 and there are no significant changes since the time of the exam. documented in this encounter Procedure Notes * Osmany Molina MD - 02/23/2024 12:56 PM CDT [facility] Vascular [facility] 1945 DATE OF PROCEDURE: 02/23/2024 ORDERING PHYSICIAN: Dr. Molina PROCEDURE: Left arm fistulogram INDICATIONS FOR PROCEDURE: Increased pulsatility DESCRIPTION OF PROCEDURE: The patient's left arm was prepped and draped in usual sterile fashion. Atime-out was done. The left arm graft was cannulated with a micropuncture needle and a diagnostic fistulogram was performed. No high-grade stenosis were identified. The patient received 15 cc of contrast and 2.7 mGy of radiation FINDINGS: The patient's left upper arm AV graft is widely patent. The arterial anastomosis is nonstenotic the graft itself is pristine. The previously placed stent on the venous anastomosis is nonstenotic at this time. The central veins do not show any stenosis. IMPRESSION: Patent f AV graft left upper arm without high-grade stenosis DICTATED BY: Osmany Molina M.D. DATE DICTATED: 02/23/2024 Interventional Post-Operative/Procedure Notes Surgeon: Dr. Molina Pre Procedure Diagnosis: ESRD Post Procedure Diagnosis: ESRD Anesthesia: Local 1% lidocaine and IV sedation Disposition: OPS Status: Stable Drain or Pack: None Additional Information/Complications: None Estimated Blood Loss: Negligible Specimen: None documented in this encounter Plan of Treatment Upcoming Encounters Date Type Department Care Team (Late st Contact Info) Description 08/23/2024 1:00 PM CDT Appointment [facility] Health Vascular Services [address] [facility], [address] [place] [address] [place] [address] [facility] [address] [place] [address] [place] [address] [facility] [address] [place] [address] Pending Results Name Type Priority Associated Diagnoses Date /Time IR Angio Av Shunt Imaging Imaging Routine ESRD (end stage renal disease) ([facility]) 02/23/2024 12:36 PM CDT documented as of this encounter Procedures Procedure Name Priority Date/Time Associated Diagnosis Comments CARDIAC RHYTHM STRIP ORDER 02/24/2024 6:15 PM CDT documented in this encounter Results * CARDIAC RHYTHM STRIP ORDER (02/24/2024 6:15 PM CDT) Narrative 02/24/2024 6:15 PM CDT Ordered by an unspecified provider. Scanned Document CARDIAC SERVICES ORD ERABLES documented in this encounter Visit Diagnoses Diagnosis Encounter regarding vascular access for dialysis for end-stage renal disease (HCC)- Primary End stage renal disease ESRD (end stage renal disease) ([facility]) End stage renal disease documented in this encounter Administered Medications Inactive Administered Medications - up to 3 most recent administrations Medication Order MAR Action Action Date Dose Rate Site 0.9% NaCl infusion at 50 mL/hr, Intravenous, INTRA-PROCEDURE MULTIPLE, Starting on Fri02/23/24 at 1152, Until Fri02/24/24 at 0144, Intra-procedure (IR) $ New Bag/Syringe 02/23/2024 12:38 PM CDT 40 mL 50 mL/hr iopamidol (Isovue 300) 61 % contrast Intravenous, INTRA-PROCEDURE MULTIPLE, Starting on Fri02/23/24 at 1152, Until Fri02/24/24 at 0144, Intra/Post-procedure $ Given - Contrast 02/23/2024 12:38 PM CDT 15 mL lidocaine (Xylocaine) 1 % injection Infiltration, INTRA-PROCEDURE MULTIPLE, Starting on 02/23/24 at 1152, Until Tu02/24/24 at 0144, Intra-procedure (IR) $ Given 02/23/2024 12:33 PM CDT 10 mg documented in this encounter Care Teams Water Pipe Installer Relationship Specialty Start Date End Date Kwame Berg MD PCP - General Internal Medicine 01/19/19 [place] [address] [address] Orthopedic Surgery Orthopedic Surgery 10/13/19 documented as of this encounter
--- OUTSIDE RECORDS SUMMARY | 2024-04-25 21:18 | XMS_ITS | Encounter Summary ---
Author Organization [facility] Address [address] [facility] [place] [address] Care Team Providers Care Porcelain Enamel Repairer Name Role Phone Kwame Berg MD Primary Care Provider [phone] Dylon Agudelo MD Unavailable [phone] Reason for Referral * (Routine) - Closed Specialty Diagnoses / Procedures Referred By Vivienne burrell Referred To Contact Procedures [place] [address] [address] [place] [address] [address] Referral ID Status Reason Start Date Expiration Date Visits Re quested Visits Authorized [id number] Closed 10/21/2022 10/21/2023 1 1 Reason for Visit * Auth/Cert (Routine) Specialty Diagnoses / Procedures Referred By Contac t Referred To Contact Procedures ARTERIOVENOUS FISTULA TRANSPOSITION / SUPERFICIALIZATION Referral ID Status Reason Start Date Expiration Date Visits Re quested Visits Authorized [id number] 1 1 Encounter Details Date Type Department Care Team (Latest Contact Info) Description 10/21/2022 6:13 AM CDT - 10/21/2022 10:45 AM CDT Hospital Encounter [facility] [address] [place] [address] [place] [phone] [address] Surgery General Discharge Disposition: Home or Self Care Social [...] Sign Reading Time Taken Comments Blood Pressure 121/79 10/21/2022 10:30 AM CDT Pulse 73 10/21/2022 9:59 AM CDT Temperature 36.3 ??C (97.4 ??F) 10/21/2022 9:39 AM CD T Respiratory Rate 17 10/21/2022 9:59 AM CDT Oxygen Saturation 99% 10/21/2022 10:30 AM CDT Inhaled Oxygen Concentration - - [...] %) solution for nebulization 03/31/2023 HYDROcodone-acetamino phen (Eek) 7.5-325 MG tabletIndications:ESR D (end stage renal [...] as of this encounter Progress Notes * Mayra Rojas RN - 10/21/2022 10:45 AM CDT [...] ESRD (end stage renal disease) (CMS/HCC) [facility]?? High blood pressure [...] ? vitamin D, ergocalciferol, (DRISDOL) 1.25 MG (66991 UT) capsule Take 1 (one) capsule by [...] Iyer MD - 10/21/2022 8:39 AM CDT [facility] OPERATIVE REPORT PATIENT: Jules Mitchell MR#: [id number] ADMIT DATE: 10/21/2022 6:13 AM [facility] # [id number] DATE OF SURGERY: 10/21/2022 : 1945 PHYSICIAN: [...] was used to tunnel the 4-7 mm Coldiron-Maximiliano graft subcutaneously under the skin. The patient [...] from the original note were not included. [address] Arteriovenous (AV) Fistula for Dialysis An AV [...] the medicines you take. This includes all htuy-stw-joeotik and prescription medicines. It also includes herbs, [...] or blows. Last Reviewed Date: 2022 ?? [id number] [employer]. All rights reserved. This information is not intended as a substitute for professional medical care. Always follow your healthcare professional's instructions. * Clinical References AVS - Stephanie Mcfadden RN - 10/21/2022 10:02 AM CDT Images from the original note were not included. Living with Your Graft for Hemodialysis - Video Watch this clip and learn how to properly care for your AV graft to ensure it is kept infection-free and in good working order. To view the video go to this web address: https://bit.ly/[email or web address] Or, scan this QR code with your smart phone ?? [employer] * Clinical References ESTRELLITA - Stephanie Mcfadden RN - 10/21/2022 10:02 AM CDT Images from the original note were not included. What is an Arteriovenous Graft for Hemodialysis? - Video Watch this clip to understand what an AV graft is and how it provides a strong access area to the bloodstream for hemodialysis treatments. To view the video go to this web address: https://bit.ly/0mq1Pzs Or, scan this QR code with your smart phone ?? [employer] documented in this encounter Plan of Treatment Upcoming Encounters Date Type Department Care Team (Late st Contact Info) Description 08/23/2024 1:00 PM CDT Appointment [facility] Vascular Services [address] [facility], [address] [place], [place] [id number] [place] [address] [facility] [address] [place] [address] [place] [address] [facility] [address] [place] [address] documented as of this encounter Procedures Procedure Name Priority Date/Time Associated Diagnosis Comments FL ANASTOMOSIS,AV,BASI LIC VEIN 10/21/2022 7:16 AM CDT [...] - 10.4 mg/dL 10/21/2022 7:15 AM CDT [facility] Anion Gap 13 8 - 18 mmol/L 10/21/2022 7:15 AM CDT [facility] BUN 38(H) 8.4 - 25.7 mg/dL 10/21/2022 7:15 AM CDT [facility] Creatinine 7.70(H) 0.72 - 1.25 mg/dL 10/21/2022 7:15 AM CDT [facility] eGFR by CKD-EPI 7(L) >=90 mL/min/1.7 3 m2 10/21/2022 7:15 AM CDT [facility] Blood BLOOD SPECIMEN / Unknown Venipuncture / Unknown 10/21/2022 6:59 AM CDT 10/21/2022 7:01 AM CDT Megan Ca DO LAB - [facility] [address] [place] [address] documented in this encounter Visit Diagnoses Diagnosis Preoperative examination- Primary Preoperative examination, unspecified ESRD (end stage renal disease) (HCC) End [...] 0730 ($ Given - Prov ider: Dolores Brock APRN-SHIFT ENGINEER) lidocaine PF (Xylocaine MPF) 1 % injection [...] - Comment: mixed with lidocaine 2% epuinephrine 1:[id number] :20 cc) heparinized saline 2 units/mL infusion CONTINUOUS PRN, Starting on Fri10/21/22 at 0750, Until Fri10/21/22 at 1227, Intra-op 0750 ($ New Bag/Syri nge - Provider: Mario Iyre MD - Comment: used as flush during [...] Pre-op documented in this encounter Care Teams Porcelain Enamel Repairer Relationship Specialty Start Date End Date Kwame Berg MD PCP - General Internal Medicine 01/19/19 [place] [address] [address] Orthopedic Surgery Orthopedic Surgery 10/13/19 documented as of this encounter
--- OUTSIDE RECORDS SUMMARY | 2024-04-25 21:18 | XMS_ITS | Encounter Summary ---
Author Organization [facility] Address [address] [place] [address] Care Team Providers Care Medical Csr Name Role Phone Kwame Berg MD Primary Care Provider [phone] Dylon Agudelo MD Unavailable [phone] Encounter Details Date Type Department Care Team (Latest Contact Info) Description 07/08/2022 Travel Social History Tobacco Use Types Packs/Day [...] Recorded In the last 10 days, have sveta u been in contact with someone who was confirmed or suspected to have Coronavirus/COVID-19? No / Unsure 07/08/2022 11:39 AM CDT documented as of this encounter Functional Status [...] Description 08/23/2024 1:00 PM CDT Appointment [facility] Health Vascular Services [address] [facility], [address] [place] [address] [place] [address] [facility] [address] [place] [address] [place] [address] [facility] [address] [place] [address] documented as of this encounter Visit Diagnoses Not on filedocumented in this encounter Care Teams Medical Csr Relationship Specialty Start Date End Date Kwame Berg MD PCP - General Internal Medicine 01/19/19 [place] [address] [facility] [address] [place] [address] Orthopedic Surgery Orthopedic Surgery 10/13/19 documented as of this encounter
--- OUTSIDE RECORDS SUMMARY | 2024-04-25 21:18 | XMS_ITS ---
Author Organization [facility] samira (HIE interaction) Address [address] [place] [address] Care Team Providers Care Sheet Metal Mechanic Name Role Phone Unavailable Unavailable Unavailable Allergies, Adverse Reactions, Alerts This patient has no known allergies or adverse reactions. Problems This patient has no known problems.
--- OUTSIDE RECORDS SUMMARY | 2024-04-25 21:18 | XMS_ITS | Encounter Summary ---
Author Organization [facility] Address [address] [facility] [place] [address] Care Team Providers Care Architectural Engineering Teacher Name Role Phone Kwame Berg MD Primary Care Provider [phone] Dylon Agudelo MD Unavailable [phone] Reason for Visit * Auth/Cert (Routine) Specialty Diagnoses / Procedures Referred By Contac t Referred To Contact Procedures INSERTION GRAFT ARTERIO-VENOUS (AV) ARM Referral ID Status Reason Start Date Expiration Date Visits Re quested Visits Authorized [id number] 1 1 Encounter Details Date Type Department Care Team (Late st Contact Info) Description 06/24/2022 7:57 AM GRAIN DISTRIBUTOR Anesthesia Event [facility] - Perioperative Surgery [address] [place] [address] Charlotte Arthur MD [address] [place] [address] [address] [place] [address] [place] [address] [place] [address] Anesthesia Record Procedure Summary Procedure Name Responsible Anesthesiologist Anesthesia Start Time Anesthesia Stop Time LEFT UPPER ARM ARTERIO-VENOUS (AV) FISTULA (Left: Arm) Charlotte Arthur MD 06/24/22 0757 06/24/22 0925 Events Date Time Event Comment 06/24/2022 0752 0757 An Start 0800 An Start Data 0807 PT Reassessment 0814 Timeout Anesthesia part icipated in timeout at the time documented in the record by nursing. 0826 Electnc Sig This record is electronically signed by the providers listed under staff. 0917 an stop data 0925 An Stop Meds Name Total fentaNYL 100 mcg/2mL injection 50 mcg propofol 200 mg/20mL injection 287.11 mg phenylephrine 100 mcg/mL solution 850 mc g heparin 1,000 units/mL - 1mL injection 2 ,000 Units ceFAZolin (Ancef) 2,000 mg in 50 ml IVPB 2 g ePHEDrine 50 mg/mL injection 45 mg 0.9% NaCl infusion 300 mL * Agents Name Exp. N2O O2 * Blood No blood administrations on file. Lines, Drains, and Airways Type Details Placement Removal Hemodialysis AV Access 10/20/19; 1426; Fistula; Right Upper Arm 10/20/19 1426 by Clare Mann RN Hemodialysis AV Access 06/24/22; Graft; Left Upper Arm 06/24/22 0000 by Oly Castro, surgical supplies sterilizer Tunneled Catheter 05/23/22; 1524; Subclavian; Left; [id number]; [id number]; [id number]; 15.5; 32; 12/13/22; 1547 05/23/22 1524 by Carlyn Mishra RN 12/13/22 1547 by Carlyn Mishra RN Procedural Site (Incision) 06/24/22; Left, Upper; Arm; 06/24/22; 1745 06/24/22 0000 by Oly Castro RN 06/24/22 1745 by Generic, Auto Release documented in this [...] as of this encounter Progress Notes * Radha Sharma APRN-CRNA - 06/24/2022 9:25 AM CST ANESTHESIA POSTOP EVALUATION NOTE Procedure: LEFT UPPER ARM ARTERIO-VENOUS (AV) GRAFT (Left: Arm) Ferdinand Rasmussen is a 77 year old male Patient Vitals for the past 6 hrs: BP Temp Pulse Resp SpO2 Pain Rating Score #1 Pain Scale/Observation 06/24/22 0729 122/49 97.7 ??F (36.5 ??C) 60 18 100 % 0 N Anesthesia Type: MAC * No Diagnosis Codes entered * Mental Status: awake, orientated, sufficiently recovered from acute administration of anesthesia toparticipate in the evaluation, confused and neurologic status has returned to preoperative level Neuro Status: No numbess, tingling or visual disturbances Respiratory Function: natural Cardiac Function: stable Postop Pain: acceptable to the patient Postop Hydration: adequate Postop Nausea: none Assessment: no apparent anesthetic complications, patient tolerated procedure well and no evidence of recall Patient Disposition: Release from Anesthesia Care NOTABLE EVENTS: No notable events documented. N DISTRIBUTOR * Radha Sharma APRN-CRNA - 06/24/2022 7:50 AM CST ANESTHESIA PREOPERATIVE EVALUATION NOTE Procedure: LEFT UPPER ARM ARTERIO-VENOUS (AV) GRAFT (Left: Arm) NPO status: Since Midnight; *Except Oral meds with H2O (06/24/2022 7:35 AM) Vitals: Patient Vitals for the past 6 hrs: BP Temp Pulse Resp SpO2 Pain Rating Score #1 06/24/22 0729 122/49 97.7 ??F (36.5 ??C) 60 18 100 % 0 LMP: No LMP for male patient. OB Status: unknown ANESTHESIA PRE-EVALUATION NOTE The patient is a current non-smoker. Physical Exam: Orientation X3 Airway/Mallampati Score: II Mouth Opening Distance: 3 fingerwidths Neck ROM: full Teeth: edentulous Heart: normal - S1 S2 Lungs: clear to ausculation bilaterally Physical Exam Additional Comments: Last hd on thurs. k today is 4.8. Other Findings: Patient has hx of cva and is a poor historian. Conclusions ?? Left Ventricle: ??? Left ventricle is normal in size. ??? Normal global systolic left ventricular function. ??? EF 60 %. ??? Left ventricle wall thickness is at the upper limits of normal. ??? There are no regional wall motion abnormalities. ??? Doppler parameters are consistent with abnormal left ventricular relaxation (Grade 1 diastolic dysfunction). ?? Follow up: ?? Findings ?? Left Ventricle: Left ventricle is normal in size. Normal global systolic left ventricular function. EF evaluated by biplane method of disks. ?? Patient: FERDINAND RASMUSSEN Study Date: 01/19/2020 09:11 AM Page 1 of 3 ? EF 60 %. Left ventricle wall thickness [...] cava is normal in size and course. ?? Pericardium: The pericardium is normal in appearance. No pericardial effusion. ?? Clinical Data Comment: Hx of CVA; ESRD; CKD; cancer; HTN; high cholesterol ?? ANESTHESIA PLAN ASA Score: 4 NPO Status: No solids since midnight and No liquids within 2 hours Anesthesia Plan: MAC Planned Induction: intravenous Planned Postop Destination: OPS Anesthetic plan was discussed with: patient, family Anesthetic Plan discussion was: Consented The patient's procedural Anesthetic Plan was discussed with the anesthesiologist. BMI, Height, Weight Tobacco History Estimated body mass index is 23.96 kg/m?? as calculated from the following: Height as of this encounter: 1.575 m (5' 2). Weight as of this encounter: 59.4 kg (131 lb). Social History Tobacco Use Smoking Status Former ??? Types: Cigarettes ??? Quit date: 10/12/2012 ??? Years since quittin.7 Smokeless Tobacco Never Alcohol History Drug History Social History Substance and Sexual Activity Alcohol Use Not Currently Social History Substance and Sexual Activity Drug Use Never Outpatient Medications: Inpatient Medications: Outpatient Medications Marked as Taking for the 06/24/22 encounter (Hospital Encounter) Medication Sig Last Dose ??? allopurinol Take 1 (one) tablet by mouth once daily 06/23/2022 ??? apixaban Take 1 tablet by mouth 2 times daily 06/23/2022 ??? atorvastatin Take 1 (one) tablet by mouth at bedtime 06/23/2022 ??? dilTIAZem Take 1 (one) tablet by mouth 3 times daily 06/24/2022 ??? furosemide Take 1 (one) tablet by mouth 2 times daily 06/23/2022 ??? lanthanum 1 (one) tablet 2 times daily 06/23/2022 ??? levETIRAcetam Take 5 mL by mouth 2 times daily 06/23/2022 ??? lisinopril Take 1 (one) tablet by mouth once daily 06/24/2022 ??? polyethylene glycol 3350 Take 17 (seventeen) g by mouth once daily as needed Past Week ??? rOPINIRole Take 1 (one) tablet by mouth Three times a week 2022 ??? sevelamer carbonate Take 1 (one) tablet by mouth 3 times daily with meals 06/23/2022 ??? sodium bicarbonate Take 1 (one) tablet by mouth once daily 06/23/2022 ??? tamsulosin Take 1 (one) capsule by mouth at bedtime At the same time every day after a meal. 06/23/2022 Current Facility-Administered Medications Medication Dose Last Admin ??? 0.9% NaCl IV ??? 0.9% NaCl 3 mL And ??? 0.9% NaCl 1-10 mL ??? acetaminophen 1,000 mg ??? ceFAZolin 2 g ??? lidocaine 0.5 mL Allergies: No Known Allergies Relevant Problems No relevant active problems Problem List: Patient Active Problem List Diagnosis Date Noted ??? Encounter regarding vascular access for dialysis for end-stage renal disease ([facility]/HCC) 05/10/2022 Priority: Not Prioritized ??? ESRD (end stage renal disease) ([facility]/HCC) 10/21/2019 Priority: Not Prioritized ??? Primary osteoarthritis of left hip 06/29/2019 Priority: Not Prioritized Medical History: Past Medical History: Diagnosis Date ??? Cancer (CMS/HCC) 2000 pt unsure of type of cancer- ??? Chronic kidney disease ??? Dementia (CMS/[facility]) ??? ESRD (end stage renal disease) ([facility]) [facility] -,,sat as of 05/27/22 ??? High blood pressure ??? Pure hypercholesterolemia ??? 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 unknown OB History No obstetric history on file. Covid Vaccine: Lab Results: Recent Labs Component Name 06/24/22 0748 PH 7.44* PO2VEN 43* LQF1DNE 48 SSE9GZR 32.6* BEVEN 7.5* G1FBODYZO 9.5 [id number] 72 No results found for requested labs within last 120 days. Recent Labs Result Component Current Result Anion Gap (AG) Arterial 13 (06/24/2022) Anesthesia pre op re evaluation by Radha Sharma APRN-MATRIX INSPECTOR 06/24/2022 8:00 AM N DISTRIBUTOR documented in this encounter Miscellaneous Notes * Addendum Note - MormoRadha canela APRN-CRNA - 06/24/2022 9:27 AM CST Addendum created 06/24/22926 by Radha Sharma APRN-CRNA SmartForm saved N DISTRIBUTOR * Anesthesia Transfer of Care - Radha Sharma APRN-CRNA - 06/24/2022 9:25 AM CST ANESTHESIA TRANSFER OF CARE NOTE Today's Date: 06/24/2022 Date of : 1945 Patient: Ferdinand Rasmussen Procedure(s): LEFT UPPER ARM ARTERIO-VENOUS (AV) GRAFT Surgeon(s): Primary: Mario Iyer MD Preop Diagnosis: * No Diagnosis Codes entered * Pre-op Meds (From admission, onward) Start Stop Status Route Frequency Ordered 06/24/22 0700 0.9% NaCl infusion 06/24 0659 Dispensed IV PRE-OP CONTINUOUS 06/24/22 0651 06/24/22 0651 0.9% NaCl injection 1-10 mL See Hyperspace for full Linked Orders Report. -- Dispensed IK PRN 06/24/22 0651 06/24/22 0700 0.9% NaCl injection 3 mL See Hyperspace for full Linked Orders Report. -- Dispensed IK EVERY 8 HOURS 06/24/22 0651 06/24/22 0700 acetaminophen (Tylenol) tablet 1,000 mg 06/24 1859 Verified PO PRE-OP ONCE 06/24/22 0651 06/24/22 0700 ceFAZolin (Ancef) 2,000 mg in 50 ml IVPB 06/24 0809 Completed IV ONCE 06/24/22 0651 06/24/22 0837 ePHEDrine injection -- Sent IV PRN 06/24/22 0847 06/24/22 0802 fentaNYL (PF) (Sublimaze) injection -- Sent IV PRN 06/24/22 0833 06/24/22 0824 heparin injection -- Sent IV PRN 06/24/22 0825 06/24/22 0914 heparinized saline 2 units/ml infusion -- Sent CONTINUOUS PRN 06/24/22 0914 06/24/22 0914 lidocaine 2% (Xylocaine-MPF) - EPINEPHrine 1:200,000 injection -- Sent PRN 06/24/22 0914 06/24/22 0700 lidocaine PF (Xylocaine MPF) 1 % injection 0.5 mL 06/24 1859 Verified INFILTRATION PRE-OP ONCE 06/24/22 0651 06/24/22 0856 Oxidized Cellulose PADS -- Sent PRN 06/24/22 0856 06/24/22 0835 phenylephrine 100 mcg/mL injection -- Sent IV PRN 06/24/22 0847 06/24/22 0807 propofol (Diprivan) injection -- Sent IV PRN 06/24/22 0834 * No Diagnosis Codes entered * . No Known Allergies Vitals: Patient Vitals for the past 3 hrs: BP Temp Pulse Resp SpO2 Pain Rating Score #1 06/24/22 0729 122/49 97.7 ??F (36.5 ??C) 60 18 100 % 0 Lines, Drains, and Airways No lines, drains, or airways are recorded for this episode. Intraprocedure I/O Totals Intake 0.9% NaCl infusion 300.00 mL Total Intake 300 mL Patient Transfer Location: OPS Transport Airway: [...] of report from the receiving PACUteam. ECHO Hancock N DISTRIBUTOR documented in this encounter Plan of Treatment Upcoming Encounters Date Type Department Care Team (Late st Contact Info) Description 08/23/2024 1:00 PM CDT Appointment [facility] [address] [place] [address], [address] [address] [place] [address] [facility] [address] [place] [phone] [place] [address] [facility] [address] [place] [address] documented as of this encounter Visit Diagnoses Not on filedocumented in this encounter Administered Medications Inactive Administered Medications - up to 3 most recent administrations Medication Order MAR Action Action Date Dose Rate Site 0.9% NaCl infusion at 20 mL/hr, Intravenous, PRE-OP CONTINUOUS, Starting on Fri06/24/22 at 0700, Until Fri06/24/22 at 1245, For Dialysis or Chronic Renal Failure patients. Use 500 ml bag and micro drip tubing, Pre-op $ New Bag/Syringe 06/24/2022 7:57 AM GRAIN DISTRIBUTOR ceFAZolin (Ancef) 2,000 mg in 50 ml IVPB 2,000 mg (2 g), at 100 mL/hr, Intravenous, ONCE, 1 dose, On Fri06/24/22 at 0700, Administer 30 minutes prior to surgical incision., Indication for anti-infective therapy: Surgical prophylaxis, Pre-op $ Given 06/24/2022 8:09 AM GRAIN DISTRIBUTOR 2 g ePHEDrine injection Intravenous, PRN, Starting on Fri06/24/22 at 0837, Until Fri06/24/22 at 0925, Anesthesia Intra-op $ Given 06/24/2022 9:12 AM GRAIN DISTRIBUTOR 10 mg $ Given 06/24/2022 9:00 AM GRAIN DISTRIBUTOR 10 mg $ Given 06/24/2022 8:47 AM GRAIN DISTRIBUTOR 10 mg fentaNYL (PF) (Sublimaze) injection Intravenous, PRN, Starting on Fri06/24/22 at 0802, Until Fri06/24/22 at 0925, Anesthesia Intra-op $ Given 06/24/2022 8:54 AM GRAIN DISTRIBUTOR 25 mcg $ Given 06/24/2022 8:02 AM GRAIN DISTRIBUTOR 25 mcg heparin injection Intravenous, PRN, Starting on Fri06/24/22 at 0824, Until Fri06/24/22 at 0925, Anesthesia Intra-op $ Given 06/24/2022 8:24 AM GRAIN DISTRIBUTOR 2,000 Units phenylephrine 100 mcg/mL injection Intravenous, PRN, Starting on Fri06/24/22 at 0835, Until Fri06/24/22 at 0925, Anesthesia Intra-op $ Given 06/24/2022 9:13 AM GRAIN DISTRIBUTOR 200 mcg $ Given 06/24/2022 8:57 AM GRAIN DISTRIBUTOR 150 mcg $ Given 06/24/2022 8:48 AM GRAIN DISTRIBUTOR 150 mcg propofol (Diprivan) injection Intravenous, PRN, Starting on Fri06/24/22 at 0807, Until Fri06/24/22 at 0925, Anesthesia Intra-op $ Given 06/24/2022 8:53 AM GRAIN DISTRIBUTOR 30 mg $ Given 06/24/2022 8:15 AM GRAIN DISTRIBUTOR 20 mg $ Given 06/24/2022 8:10 AM GRAIN DISTRIBUTOR 30 mg documented in this encounter Care Teams Architectural Engineering Teacher Relationship Specialty Start Date End Date Kwame Berg MD PCP - General Internal Medicine 01/19/19 [place] [address] [phone] Orthopedic Surgery Orthopedic Surgery 10/13/19 documented as of this encounter
--- OUTSIDE RECORDS SUMMARY | 2024-04-25 21:19 | XMS_ITS | Encounter Summary ---
Author Organization [facility] Address [address] [place] [place] [address] Care Team Providers Care Taker Off Braker Machine Name Role Phone Kwame Berg MD Primary Care Provider [phone] Dylon Agudelo MD Unavailable [phone] Reason for Referral * Radiology Services (Routine) - Closed Specialty Diagnoses / Procedures Referred By Contac t Referred To Contact Diagnoses Encounter regarding vascular access for dialysis for end-stage renal disease (HCC) Procedures [place] [address] [facility] [address] [address] Referral ID Status Reason Start Date Expiration Date Visits Re quested Visits Authorized [id number] Closed 05/10/2022 05/10/2023 1 1 ICAL PLANT MANAGER * Radiology Services (Routine) - Closed Specialty Diagnoses / Procedures Referred By Contac t Referred To Contact Diagnoses Encounter regarding vascular access for dialysis for end-stage renal disease (HCC) Procedures IR [place] [address] [employer] [address] [place] [phone] Referral ID Status Reason Start Date Expiration Date Visits Re quested Visits Authorized [id number] Closed 05/10/2022 05/10/2023 1 1 ICAL PLANT MANAGER Reason for Visit * Radiology Services (Routine) - Closed Specialty Diagnoses / Procedures Referred By Contac t Referred To Contact Diagnoses Encounter regarding vascular access for dialysis for end-stage renal disease (HCC) Procedures IR [place] [address] [facility] [address] [place] [address] Referral ID Status Reason Start Date Expiration Date Visits Re quested Visits Authorized [id number] Closed 05/25/2021 05/25/2022 1 1 Encounter Details Date Type Department Care Team (Latest Contact Info) Description 05/13/2022 10:52 AM PHYSICAL PLANT MANAGER - 05/13/2022 11:59 PM PHYSICAL PLANT MANAGER Hospital Encounter [facility] [address] [facility], [address] [place], [place] [id number] Tyshawn Heller MD [address] [place] [address] [place] [address] [facility] [address] [place] [address] Haja Marrufo MD [place] [address] [facility] [address] [place] [address] Discharge Disposition: Home or Self [...] Sign Reading Time Taken Comments Blood Pressure 111/55 05/13/2022 12:32 PM PHYSICAL PLANT MANAGER Pulse 60 05/13/2022 12:32 PM PHYSICAL PLANT MANAGER Temperature 36.6 ??C (97.8 ??F) 05/13/2022 11:[address] Respiratory Rate 19 05/13/2022 12:32 PM PHYSICAL PLANT MANAGER Oxygen Saturation 99% 05/13/2022 12:32 PM PHYSICAL PLANT MANAGER Inhaled Oxygen Concentration - - Weight 53.1 kg (117 lb) 05/13/2022 11:12 AM PHYSICAL PLANT MANAGER Height 157.5 cm (5' 2) 05/13/2022 11:12 AM PHYSICAL PLANT MANAGER Body Mass Index 21.4 05/13/2022 11:12 AM PHYSICAL PLANT MANAGER documented in this encounter Functional Status Functional [...] tablet by mouth at bedtime 0 01/19/2019 dilTIAZem (CARDIZEM) 30 MG tablet Take 1 (one) tablet by mouth 3 times daily 08/24/2021 furosemide (LASIX) 80 MG tablet Take 1 [...] same time every day after a meal. lanthanum (Fosrenol) 500 MG chew tablet 1 (one) tablet 2 times daily 01/14/2022 03/31/2023 levETIRAcetam (Keppra) 500 MG tablet Keppra 500 mg tablet Take 1 tablet twice a day by oral route. 10/01/2021 10/18/2022 lidocaine-prilocaine (EMLA) 2.5-2.5 % cream 09/22/202103/31 lisinopril (PRINIVIL; ZESTRIL) 10 MG tablet Take 1 (one) tablet by mouth once daily 08/10/2021 10/18/2022 polyethylene glycol 3350 (MIRALAX) 17 g packet Take 17 (seventeen) g by mouth once daily as needed 08/09/2019 08/04/2023 sodium bicarbonate 325 MG tablet Take 1 (one) tablet by mouth once daily 07/05/2019 10/21/2022 vitamin D, ergocalciferol, (DRISDOL) 1.25 MG (16277 UT) capsule Take 1 (one) capsule by mouth every 30 days 10/18/2022 documented as of this encounter Progress Notes * Madelyn Bailey RN - 05/13/2022 11:18 AM CST Pt has right upper arm AVG that is pulsatile. Pt denies problems with access during dialysis treatment. ICAL PLANT MANAGER documented in this encounter H&P Notes * Mario Iyer MD - 05/13/2022 11:45 AM CST Chief Complaint ESRD History and Physical Jules Mitchell is a 76 year old male. Patient has a right arm access being used for dialysis. 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 Patient presents with pulsatility. Past Medical History: Diagnosis Date ??? Cancer 2000 pt unsure of type of cancer ??? Chronic kidney disease ??? ESRD (end stage renal disease) [facility] -,,sat 01/25/21 ??? High blood pressure ??? Pure hypercholesterolemia ??? Stroke per pt Past Surgical History: Procedure Laterality [...] PROCEDURE/SURGERY 10/20/2019 RIGHT UPPER ARM ARTERIOVENOUS FISTULA No Known Allergies Current Outpatient Medications on File Prior to Visit Medication Sig Dispense Refill ??? allopurinol (ZYLOPRIM) 100 MG tablet Take 100 mg by mouth once daily ??? apixaban (ELIQUIS) 2.5 MG tablet Take 1 tablet by mouth 2 times daily 60 tablet 0 ??? atorvastatin (LIPITOR) 20 MG tablet Take 20 mg by mouth at bedtime 0 ??? dilTIAZem (CARDIZEM) 30 MG tablet Take 30 mg by mouth 3 times daily ??? folic acid (FOLVITE) 1 MG tablet 1 mg by Enteral route once daily ??? furosemide (LASIX) 80 MG tablet Take 80 mg by mouth 2 times daily ??? lanthanum (Fosrenol) 500 MG chew tablet ??? levETIRAcetam (KEPPRA) 100 MG/ML oral solution ??? lidocaine-prilocaine (EMLA) 2.5-2.5 % cream ??? lisinopril (PRINIVIL; ZESTRIL) 10 MG tablet ??? polyethylene glycol 3350 (MIRALAX) 17 g packet Take 17 g by mouth once daily as needed ??? polyethylene glycol 3350 (Miralax) 17 GM/SCOOP powder MIX AND DRINK 1 CAPFUL BY MOUTH EVERY DAY ??? rOPINIRole (REQUIP) 0.5 MG tablet Take 0.5 mg by mouth Three times a week ??? sevelamer carbonate (RENVELA) 800 MG Take 800 mg by mouth 3 times daily with meals ??? sodium bicarbonate 325 MG tablet Take 325 mg by mouth once daily (Patient not taking: Reported on 01/16/2022) ??? tamsulosin (FLOMAX) 0.4 MG capsule Take 0.4 mg by mouth at bedtime At the same time every day after a meal. ??? vitamin D, ergocalciferol, (DRISDOL) 1.25 MG (30921 UT) capsule Take 50,000 Units by mouth every 30 days (Patient not taking: No sig reported) No current facility-administered medications on file prior to visit. Social History Tobacco Use ??? Smoking status: Former Types: Cigarettes Quit date: 10/12/2012 Years since quittin.5 ??? Smokeless tobacco: Never Vaping Use ??? [...] who understands and wishes to proceed. ICAL PLANT MANAGER * Mario Iyer MD - 05/13/2022 11:34 AM CST This patient? s prior H&P was reviewed, the patient was examined and no change has occurred in the patient's condition since the prior H&P was completed. Mario Iyer MD ICAL PLANT MANAGER documented in this encounter Procedure Notes * Mario Iyer MD - 05/13/2022 12:24 PM CSTAssociated Order(s): IR ANGIO AV SHUNT IMAGING [facility] 1945 DATE OF PROCEDURE: 05/13/2022 ORDERING PHYSICIAN: Mario Iyer MD PROCEDURE: 1. 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 2. Central venous angioplasty of the right innominate vein with a 10 x 4 balloon. 3. Placement 8 x 5 viabahn endovascular stent at the venous anastomosis. 4. IV conscious sedation. INDICATIONS FOR PROCEDURE: Increased pulsatility right upper arm AV graft with prolonged bleeding at dialysis. DESCRIPTION OF PROCEDURE: Once the patient was prepped and draped in usual sterile fashion he was given 1 percent lidocaine as local anesthetic. Micropuncture set was used to cannulate the right upper arm AV graft and fistulogram was obtained. There was good retrograde flow back to the arterial anastomosis. There was good flow through the graft but there was a string sign almost occluded venous anastomosis. There was also high-grade stenosis in the right innominate vein. The tract was dilated and a 8 Indian sheath was inserted. The patient was given IV conscious sedation by the surgeon. This was monitored by the nursing staff and this included 0.5 mg of Versed and 50 mcg of fentanyl. The 6 x 4 balloon was inserted and pre dilation of the venous anastomosis was performed. A 6 x 4 balloon was then used to pre dilate the central circulation of the right innominate vein. A 10 x 4 balloon was then inserted and did angioplasty of the right innominate vein with good results. Patient may however, at some point need a stent in this area. The 8 x 5 endovascular stent was then inserted at the venous anastomosis and this was dilated with an 8 x 4 con Quest high-pressure balloon. We then had to follow this with an 8 x 2 high-pressure con Quest balloon. Patient tolerated the procedure well and completion angiography looked excellent. Preoperatively the patient understood the risks of procedure be bleeding and infection want to proceed. During the procedure we used 75 cc of Isovue and 9.6 mGy. DICTATED BY: Mario Iyer M.D./isacc Interventional Post-Operative/Procedure Notes Surgeon: Mario Iyer MD Pre Procedure Diagnosis: ESRD Post Procedure Diagnosis: ESRD Anesthesia: Local 1% lidocaine and IV sedation Disposition: OPS Status: Stable Drain or Pack: None Additional Information/Complications: None Estimated Blood Loss: Negligible Specimen: None ICAL PLANT MANAGER documented in this encounter Plan of Treatment Upcoming Encounters Date Type Department Care Team (Late st Contact Info) Description 08/23/2024 1:00 PM CDT Appointment [facility] Vascular Services [address] [facility], [address] [place] [address] [place] [address] [facility] [address] [place] [address] [place] [address] [facility] [address] [place] [address] documented as of this encounter Procedures Procedure Name Priority Date/Time Associated Diagnosis Comments CARDIAC RHYTHM STRIP ORDER 05/16/2022 12:44 PM PHYSICAL PLANT MANAGER IR ANGIO AV SHUNT IMAGING Routine 05/13/2022 12:20 PM PHYSICAL PLANT MANAGER Encounter regarding vascular access for dialysis for end-stage renal disease (HCC) documented in this encounter Results * CARDIAC RHYTHM STRIP ORDER (05/16/2022 12:44 PM PHYSICAL PLANT MANAGER) Narrative 05/16/2022 12:44 PM PHYSICAL PLANT MANAGER Ordered by an unspecified provider. Scanned Document CARDIAC SERVICES ORD ERABLES * IR ANGIO AV SHUNT IMAGING (05/13/2022 12:20 PM PHYSICAL PLANT MANAGER) Anatomical Region Laterality Modality Lower Extremity, Upper Extremity, Chest X-Ray Angiography Narrative 05/13/2022 12:24 PM PHYSICAL PLANT MANAGER Mario Iyer MD ? 05/13/2022 12:29 PM [facility] [place] Jules Long 1945 DATE OF PROCEDURE: 05/13/2022 ORDERING PHYSICIAN: Mario Iyer MD PROCEDURE: ?? 1. ? 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 2. ? Central venous angioplasty of the right innominate vein with a 10 x 4 balloon. 3. ? Placement 8 x 5 viabahn endovascular stent at the venous anastomosis. 4. ? IV conscious sedation. ?? INDICATIONS FOR PROCEDURE: ? Increased pulsatility right upper arm AV graft with prolonged bleeding at dialysis. DESCRIPTION OF PROCEDURE: ? Once the patient was prepped and draped in usual sterile fashion he was given 1 percent lidocaine as local anesthetic. ??Micropuncture set was used to cannulate the right upper arm AV graft and fistulogram was obtained. ??There was good retrograde flow back to the arterial anastomosis. ??There was good flow through the graft but there was a string sign almost occluded venous anastomosis. ?? There was also high-grade stenosis in the right innominate vein. ?? The tract was dilated and a 8 Indian sheath was inserted. ??The patient was given IV conscious sedation by the surgeon. ??This was monitored by the nursing staff and this included 0.5 mg of Versed and 50 mcg of fentanyl. ??The 6 x 4 balloon was inserted and pre dilation of the venous anastomosis was performed. ??A 6 x 4 balloon was then used to pre dilate the central circulation of the right innominate vein. ??A 10 x 4 balloon was then inserted and did angioplasty of the right innominate vein with good results. ??Patient may however, at some point need a stent in this area. ??The 8 x 5 endovascular stent was then inserted at the venous anastomosis and this was dilated with an 8 x 4 con Quest high-pressure balloon. ??We then had to follow this with an 8 x 2 high-pressure con Quest balloon. ??Patient tolerated the procedure well and completion angiography looked excellent. ??Preoperatively the patient understood the risks of procedure be bleeding and infection want to proceed. ??During the procedure we used 75 cc of Isovue and 9.6 mGy. DICTATED BY: ??Mario Iyer M.D./isacc Interventional [...] disease (HCC)- Primary End stage renal disease documented in this encounter Administered Medications Inactive Administered Medications - up to 3 most recent administrations Medication Order MAR Action Action Date Dose Rate Site 0.9% NaCl infusion at 50 mL/hr, Intravenous, INTRA-PROCEDURE MULTIPLE, Starting on Fri05/13/22 at 1111, Until Fri05/14/22 at 0148, Intra-procedure (IR) $ New Bag/Syringe 05/13/2022 12:32 PM PHYSICAL PLANT MANAGER 200 mL 50 mL/hr fentaNYL (PF) (Sublimaze) injection 25-100 mcg 25-100 mcg, Intravenous, INTRA-PROCEDURE MULTIPLE, Starting on Fri05/13/22 at 1111, Until Fri05/14/22 at 0148, Administer every 5 minutes during procedure as needed for sedation. Dose to be determined by physician. Patient preference for lesser PRN pain meds may be honored when the patient requests a less strong medication, a lower dose, or a less intrusive route of administration when the lesser drug, dose and route have been ordered for the patient. This patient request must be documented in the MAR., Intra-procedure (IR) $ Given 05/13/2022 11:56 AM PHYSICAL PLANT MANAGER 50 mcg fentaNYL (Sublimaze) injection 0.05 mg/mL ADS Med 1 dose, Starting on Fri05/13/22 at 1135, Until Fri05/13/22 at 1156, Created by cabinet override Patient preference for lesser PRN pain meds may be honored when the patient requests a less strong medication, a lower dose, or a less intrusive route of administration when the lesser drug, dose and route have been ordered for the patient. This patient request must be documented in the MAR. iopamidol (Isovue 300) 61 % contrast Intravenous, INTRA-PROCEDURE MULTIPLE, Starting on Fri05/13/22 at 1111, Until Fri05/14/22 at 0148, Intra/Post-procedure $ Given - Contrast 05/13/2022 12:32 PM PHYSICAL PLANT MANAGER 75 mL lidocaine (Xylocaine PF) 1% injection ADS Med 1 dose, Starting on Fri05/13/22 at 1108, Until Fri05/13/22 at 1152, Created by cabinet override lidocaine PF (Xylocaine MPF) 1 % injection Infiltration, INTRA-PROCEDURE MULTIPLE, Starting on Fri05/13/22 at 1111, Until Fri05/14/22 at 0148, Intra-procedure (IR) $ Given 05/13/2022 11:52 AM PHYSICAL PLANT MANAGER 20 mg midazolam (Versed) 1 mg/mL injection ADS Med 1 dose, Starting on Fri05/13/22 at 1136, Until Fri05/13/22 at 1156, Created by cabinet override midazolam (Versed) injection 0.5-2 mg 0.5-2 mg, Intravenous, INTRA-PROCEDURE MULTIPLE, Starting on Fri05/13/22 at 1111, Until Fri05/14/22 at 0148, Administer every 5 minutes during procedure as needed for sedation. Dose to be determined by physician., Intra-procedure (IR) $ Given 05/13/2022 11:56 AM PHYSICAL PLANT MANAGER 0.5 mg documented in this encounter Care Teams Taker Off Braker Machine Relationship Specialty Start Date End Date Kwame Berg MD PCP - General Internal Medicine 01/19/19 [place] [address] [address] Orthopedic Surgery Orthopedic Surgery 10/13/19 documented as of this encounter
--- OUTSIDE RECORDS SUMMARY | 2024-04-25 21:19 | XMS_ITS | Encounter Summary ---
Author Organization [facility] Address [address] [place] [address] Care Team Providers Care Dowel Inserting Machine Operator Name Role Phone Kwame Berg MD Primary Care Provider [phone] Dylon Agudelo MD Unavailable [phone] Encounter Details Date Type Department Care Team (Latest Contact Info) Description 01/20/2020 5:10 PM CDT - 02/01/2020 4:40 PM CDT Hospital Encounter Formerly [facility] [address] [place] [id number] Mike Alexandre MD [facility] [address] [place] [phone] Gabriel Magaña MD [address] [place] [phone] [facility] Direct Discharge Disposition: Home or Self Care Social [...] Exposure Response Date Recorded In the last month, have you been in contact with someone who was confirmed or suspected to have Coronavirus / COVID-19? No / Unsure 01/08/2020 10:02 AM CDT documented as of this encounter [...] tablet by mouth at bedtime 0 01/19/2019 furosemide (LASIX) 80 MG tablet Take 1 (one) tablet by mouth 2 times daily 05/11/2019 rOPINIRole (REQUIP) 0.5 MG tablet Take 1 (one) tablet by mouth Three times a week 06/23/2019 sevelamer carbonate (RENVELA) 800 MG Take 1 (one) tablet by mouth 3 times daily with meals tamsulosin (FLOMAX) 0.4 MG capsule Take 1 (one) capsule by mouth at bedtime At the same time every day after a meal. dilTIAZem coated beads 24hr (CARDIZEM CD) 120 MG capsule Take 1 capsule by mouth once daily Do not crush or chew. 30 capsule 01/17/2020 01/16/2022 docusate sodium (COLACE) 100 MG capsule Take 100 mg by mouth once daily as needed 05/28/2019 01/16/2022 epoetin ashly-EPBX (RETACRIT) 4000 UNIT/ML injectionIndications :ESRD (end stage renal disease) ([facility]) Inject 4,000 Units subcutaneously every 7 days 01/20/2020 09/13/2020 HYDROcodone-acetamin ophen (NORCO) 10-325 MG tablet Take 0.5-1 tablets by mouth every 6 hours as needed 28 tablet 01/13/2020 03/15/2020 lisinopril (PRINIVIL;ZESTRIL) 5 MG tablet Take 5 mg by mouth once daily 08/15/2019 09/13/2020 polyethylene glycol 3350 (MIRALAX) 17 g packet Take 17 (seventeen) g by mouth once daily as needed 08/09/2019 08/04/2023 sodium bicarbonate 325 MG tablet Take 1 (one) tablet by mouth once daily 07/05/2019 10/21/2022 documented as of this encounter Plan of Treatment Upcoming Encounters Date Type Department Care Team (Late st Contact Info) Description 08/23/2024 1:00 PM CDT Appointment [facility] Vascular Services [address] [facility] [place], [address] [place] [address] [place] [address] [facility] [address] [place] [address] [place] [phone] [address] documented as of this encounter Procedures Procedure Name Priority Date/Time Associated Diagnosis Comments XR ANKLE LEFT 3VW OR MORE Routine 02/01/2020 2:33 PM CDT URIC ACID BLOOD Add on 01/31/2020 5:00 AM CDT CBC W/O DIFFERENTIAL Routine 01/31/2020 5:00 AM CDT BASIC METABOLIC PANEL (CALCIUM TOTAL) Routine 01/31/2020 5:00 AM CDT B-TYPE NATRIURETIC PEPTIDE Routine 01/28/2020 4:00 AM CDT FOLATE Routine 01/28/2020 4:00 AM CDT VITAMIN B12 Routine 01/28/2020 4:00 AM CDT IRON + TRANSFERRIN PANEL Routine 01/28/2020 4:00 AM CDT FERRITIN Routine 01/28/2020 4:00 AM CDT CBC W/O DIFFERENTIAL Routine 01/27/2020 4:45 AM CDT BASIC METABOLIC PANEL (CALCIUM TOTAL) Routine 01/27/2020 4:45 AM CDT POTASSIUM BLOOD Routine 01/25/2020 12:18 PM CDT CBC W/O DIFFERENTIAL Routine 01/24/2020 3:33 AM CDT COMPREHENSIVE METABOLIC PANEL Routine 01/24/2020 3:33 AM CDT CBC W/O DIFFERENTIAL Routine 01/21/2020 5:30 AM CDT BASIC METABOLIC PANEL (CALCIUM TOTAL) Routine 01/21/2020 5:30 AM CDT documented in this encounter Results * XR ANKLE LEFT 3VW OR MORE [...] on 02/01/2020 at 4:04 PM Manoj Morrison PLANT PATHOLOGIST-OFF TRACK BETTING MANAGER DIAGNOSTIC IMAGIN G ORDERABLES * (ABNORMAL) URIC ACID BLOOD (01/31/2020 5:00 AM CDT) Uric Acid 3.3(L) 3.5 - 7.2 mg/dL 01/31/2020 1:13 PM CDT [facility] Blood BLOOD SPECIMEN / Unknown Venipuncture / Unknown 01/31/2020 5:00 AM CDT 01/31/2020 7:11 AM CDT Manoj Morrison APRN-CARMELITA LAB - CHEMISTRY O RDERABLES Performing Organization Address City/[facility]/ZIP Co de Phone Number [facility] [address] [place] [address] * (ABNORMAL) BASIC METABOLIC PANEL (CALCIUM TOTAL) (01/31/2020 5:00 AM CDT) [facility] Glucose 92 70 - 105 mg/dL 01/31/2020 7:40 AM CDT [facility] Sodium 133(L) 136 - 145 mmol/L 01/31/2020 7:40 AM CDT [facility] Potassium 5.4(H) 3.5 - 5.1 mmol/L 01/31/2020 7:40 AM CDT [facility] Chloride 97(L) 98 - 107 mmol/L 01/31/2020 7:40 AM CDT [facility] CO2 26 23 - 31 mmol/L 01/31/2020 7:40 AM CDT [facility] Calcium 8.8 8.4 - 10.4 mg/dL 01/31/2020 7:40 AM CDT [facility] Anion Gap 10 8 - 16 mmol/L 01/31/2020 7:40 AM CDT [facility] BUN 35(H) 8.4 - 25.7 mg/dL 01/31/2020 7:40 AM CDT [facility] Creatinine 6.11(H) 0.72 - 1.25 mg/dL 01/31/2020 7:40 AM CDT [facility] eGFR by MDRD 9 mL/min/1.7 3m2 01/31/2020 7:40 AM CDT [facility] eGFR by MDRD 11 mL/min/1.7 3m2 01/31/2020 7:40 AM CDT [facility] Blood BLOOD SPECIMEN / Unknown Venipuncture / Unknown 01/31/2020 5:00 AM CDT 01/31/2020 7:11 AM CDT Gabriel Magaña MD LAB - CHEMISTRY ORD ERABLES [facility] [address] [place] [address] * (ABNORMAL) CBC W/O DIFFERENTIAL (01/31/2020 5:00 AM CDT) WBC 4.6 4.4 - 10.7 x10E9/L 01/31/2020 7:25 AM CDT [facility] RBC 2.30(L) 3.80 - 5.40 x10E12/L 01/31/2020 7:25 AM CDT [facility] Hemoglobin 7.8(L) 12.0 - 17.6 gm/dL 01/31/2020 7:25 AM CDT [facility] Hematocrit 24.1(L) 35.2 - 51.7 % 01/31/2020 7:25 AM CDT [facility] MCV 104.8(H) 80.7 - 98.3 fl 01/31/2020 7:25 AM CDT [facility] MCH 33.9 26.7 - 34.0 pg 01/31/2020 7:25 AM CDT [facility] MCHC 32.4 30.8 - 35.9 gm/dL 01/31/2020 7:25 AM CDT [facility] Platelet Count 236 153 - 416 x10E9/L 01/31/2020 7:25 AM CDT [facility] RDW-CV 12.1 12.1 - 14.9 % 01/31/2020 7:25 AM CDT [facility] MPV 9.5 9.4 - 12.9 fl 01/31/2020 7:25 AM CDT [facility] Blood BLOOD SPECIMEN / Unknown Venipuncture / Unknown 01/31/2020 5:00 AM CDT 01/31/2020 7:11 AM CDT Gabriel Magaña MD LAB - HEMATOLOGY OR DERABLES [facility] [address] [place] [address] * (ABNORMAL) FERRITIN (01/28/2020 4:00 AM CDT) Ferritin 4,204(H) 22 - 275 ng/mL 01/28/2020 7:46 AM CDT [facility] Blood BLOOD SPECIMEN / Unknown 01/28/2020 4:00 AM CDT 01/28/2020 6:22 AM CDT Denice Edgar APRN-OFF TRACK BETTING MANAGER LAB - CHEMISTR Y ORDERABLES Performing Organization Address [facility] Co de Phone Number [facility] [id number] [place] [address] * (ABNORMAL) IRON + TRANSFERRIN PANEL (01/28/2020 4:00 AM CDT) Iron 47(L) 65 - 175 ug/dL 01/28/2020 7:01 AM CDT [facility] Transferrin 125(L) 163 - 344 mg/dL 01/28/2020 7:01 AM CDT [facility] TIBC Calculated 156(L) 240 - 450 ug/dL 01/28/2020 7:01 AM CDT [facility] Iron Saturation % 30 20 - 50 % 01/28/2020 7:01 AM CDT [facility] Blood BLOOD SPECIMEN / Unknown 01/28/2020 4:00 AM CDT 01/28/2020 6:22 AM CDT Deince Edgar APRN-OFF TRACK BETTING MANAGER LAB - CHEMISTR Y ORDERABLES Performing Organization Address [facility] de Phone Number [facility] [address] [place] [address] * VITAMIN B12 (01/28/2020 4:00 AM CDT) Vitamin B12 419 213 - 816 pg/mL 01/28/2020 7:21 AM CDT [facility] Blood BLOOD SPECIMEN / Unknown 01/28/2020 4:00 AM CDT 01/28/2020 6:22 AM CDT Denice Edgar APRN-OFF TRACK BETTING MANAGER LAB - CHEMISTR Y ORDERABLES Performing Organization Address [facility] Co de Phone Number [facility] [id number] [place] [address] * FOLATE (01/28/2020 4:00 AM CDT) Pathologist [facility] Folate 12.2 7.0 - 31.4 ng/mL 01/28/2020 7:30 AM CDT [facility] Blood BLOOD SPECIMEN / Unknown 01/28/2020 4:00 AM CDT 01/28/2020 6:22 AM CDT Denice Edgar PLANT PATHOLOGIST-OFF TRACK BETTING MANAGER LAB - CHEMISTR Y ORDERABLES Performing Organization Address [facility] de Phone Number [facility] [phone] [place] [address] * B-TYPE NATRIURETIC PEPTIDE (01/28/2020 4:00 AM CDT) Pathologist [facility] BNP 36 <=100 pg/mL 01/28/2020 6:53 AM CDT [facility] Blood BLOOD SPECIMEN / Unknown 01/28/2020 4:00 AM CDT 01/28/2020 6:22 AM CDT Soniyaeddie Kirklandmargokulwinder PLANT PATHOLOGIST-OFF TRACK BETTING MANAGER LAB - CHEMISTR Y ORDERABLES Performing Organization Address [facility] de Phone Number [facility] [phone] [place] [phone] * (ABNORMAL) BASIC METABOLIC PANEL (CALCIUM TOTAL) (01/27/2020 4:45 AM CDT) [facility] Glucose 87 70 - 105 mg/dL 01/27/2020 7:07 AM CDT [facility] Sodium 133(L) 136 - 145 mmol/L 01/27/2020 7:07 AM CDT [facility] Potassium 4.9 3.5 - 5.1 mmol/L 01/27/2020 7:07 AM CDT [facility] Chloride 96(L) 98 - 107 mmol/L 01/27/2020 7:07 AM CDT [facility] CO2 27 23 - 31 mmol/L 01/27/2020 7:07 AM CDT [facility] Calcium 8.7 8.4 - 10.4 mg/dL 01/27/2020 7:07 AM CDT [facility] Anion Gap 10 8 - 16 mmol/L 01/27/2020 7:07 AM CDT [facility] BUN 24 8.4 - 25.7 mg/dL 01/27/2020 7:07 AM CDT [facility] Creatinine 6.28(H) 0.72 - 1.25 mg/dL 01/27/2020 7:07 AM CDT [facility] eGFR by MDRD 9 mL/min/1.7 3m2 01/27/2020 7:07 AM CDT [facility] eGFR by MDRD 11 mL/min/1.7 3m2 01/27/2020 7:07 AM CDT [facility] Blood BLOOD SPECIMEN / Unknown 01/27/2020 4:45 AM CDT 01/27/2020 6:39 AM CDT Gabriel Magaña MD LAB - CHEMISTRY ORD ERABLES [facility] [address] [place] [address] * (ABNORMAL) CBC W/O DIFFERENTIAL (01/27/2020 4:45 AM CDT) WBC 4.5 4.4 - 10.7 x10E9/L 01/27/2020 6:59 AM CDT [facility] RBC 2.34(L) 3.80 - 5.40 x10E12/L 01/27/2020 6:59 AM CDT [facility] Hemoglobin 7.8(L) 12.0 - 17.6 gm/dL 01/27/2020 6:59 AM CDT [facility] Hematocrit 24.5(L) 35.2 - 51.7 % 01/27/2020 6:59 AM CDT [facility] MCV 104.7(H) 80.7 - 98.3 fl 01/27/2020 6:59 AM CDT [facility] MCH 33.3 26.7 - 34.0 pg 01/27/2020 6:59 AM CDT [facility] MCHC 31.8 30.8 - 35.9 gm/dL 01/27/2020 6:59 AM CDT [facility] Platelet Count 289 153 - 416 x10E9/L 01/27/2020 6:59 AM CDT [facility] RDW-CV 12.2 12.1 - 14.9 % 01/27/2020 6:59 AM CDT [facility] MPV 9.2(L) 9.4 - 12.9 fl 01/27/2020 6:59 AM CDT [facility] Blood BLOOD SPECIMEN / Unknown 01/27/2020 4:45 AM CDT 01/27/2020 6:39 AM CDT Gabriel Magaña MD LAB - HEMATOLOGY OR DERABLES Performing Organization Address [facility] Co de Phone Number [facility] [address] [place], [place] [phone] * (ABNORMAL) POTASSIUM BLOOD (01/25/2020 12:18 PM CDT) Potassium 5.3(H) 3.5 - 5.1 mmol/L 01/25/2020 2:30 PM CDT [facility] Blood BLOOD SPECIMEN / Unknown 01/25/2020 12:18 PM CDT 01/25/2020 2:16 PM CDT Naveen Blackman MD LAB - CHEMISTRY ORDE MARCY Performing Organization Address [facility] de Phone Number [facility] [address] [place] [address] * (ABNORMAL) COMPREHENSIVE METABOLIC PANEL (01/24/2020 3:33 AM CDT) Glucose 96 70 - 105 mg/dL 01/24/2020 8:02 AM CDT [facility] Sodium 136 136 - 145 mmol/L 01/24/2020 8:02 AM CDT [facility] Potassium 4.8 3.5 - 5.1 mmol/L 01/24/2020 8:02 AM CDT [facility] Chloride 98 98 - 107 mmol/L 01/24/2020 8:02 AM CDT [facility] CO2 28 23 - 31 mmol/L 01/24/2020 8:02 AM CDT [facility] Calcium 8.8 8.4 - 10.4 mg/dL 01/24/2020 8:02 AM CDT [facility] Anion Gap 10 8 - 16 mmol/L 01/24/2020 8:02 AM CDT [facility] BUN 32(H) 8.4 - 25.7 mg/dL 01/24/2020 8:02 AM CDT [facility] Creatinine 5.84(H) 0.72 - 1.25 mg/dL 01/24/2020 8:02 AM CDT [facility] Alkaline Phosphatase 66 40 - 150 U/L 01/24/2020 8:02 AM CDT [facility] ALT 11 0 - 61 U/L 01/24/2020 8:02 AM CDT [facility] AST 17 5 - 34 U/L 01/24/2020 8:02 AM CDT [facility] Protein Total 6.5 6.4 - 8.3 gm/dL 01/24/2020 8:02 AM CDT [facility] Albumin 3.5 3.2 - 4.6 gm/dL 01/24/2020 8:02 AM CDT [facility] Bilirubin Total 0.3 0.2 - 1.2 mg/dL 01/24/2020 8:02 AM CDT [facility] eGFR by MDRD 10 mL/min/1.7 3m2 01/24/2020 8:02 AM CDT [facility] eGFR by MDRD 12 mL/min/1.7 3m2 01/24/2020 8:02 AM CDT [facility] Blood BLOOD SPECIMEN / Unknown 01/24/2020 3:33 AM CDT 01/24/2020 6:52 AM CDT Robbin Brown PLANT PATHOLOGIST-OFF TRACK BETTING MANAGER LAB - CHEMISTRY O RDERABLES Performing Organization Address City/State/[facility] Co de Phone Number [facility] [address] [place] [address] * (ABNORMAL) CBC W/O DIFFERENTIAL (01/24/2020 3:33 AM CDT) [facility] WBC 6.4 4.4 - 10.7 x10E9/L 01/24/2020 7:46 AM CDT [facility] RBC 2.34(L) 3.80 - 5.40 x10E12/L 01/24/2020 7:46 AM CDT [facility] Hemoglobin 7.8(L) 12.0 - 17.6 gm/dL 01/24/2020 7:46 AM CDT [facility] Hematocrit 24.9(L) 35.2 - 51.7 % 01/24/2020 7:46 AM CDT [facility] MCV 106.4(H) 80.7 - 98.3 fl 01/24/2020 7:46 AM CDT [facility] MCH 33.3 26.7 - 34.0 pg 01/24/2020 7:46 AM CDT [facility] MCHC 31.3 30.8 - 35.9 gm/dL 01/24/2020 7:46 AM CDT [facility] Platelet Count 283 153 - 416 x10E9/L 01/24/2020 7:46 AM CDT [facility] RDW-CV 12.4 12.1 - 14.9 % 01/24/2020 7:46 AM CDT [facility] MPV 9.7 9.4 - 12.9 fl 01/24/2020 7:46 AM CDT [facility] Blood BLOOD SPECIMEN / Unknown 01/24/2020 3:33 AM CDT 01/24/2020 6:52 AM CDT Gabriel Magaña MD LAB - HEMATOLOGY OR DERABLES [facility] [address] [place] [id number] * (ABNORMAL) BASIC METABOLIC PANEL (CALCIUM TOTAL) (01/21/2020 5:30 AM CDT) Glucose 115(H) 70 - 105 mg/dL 01/21/2020 7:05 AM CDT [facility] Sodium 138 136 - 145 mmol/L 01/21/2020 7:05 AM CDT [facility] Potassium 4.5 3.5 - 5.1 mmol/L 01/21/2020 7:05 AM CDT [facility] Chloride 99 98 - 107 mmol/L 01/21/2020 7:05 AM CDT [facility] CO2 29 23 - 31 mmol/L 01/21/2020 7:05 AM CDT [facility] Calcium 8.9 8.4 - 10.4 mg/dL 01/21/2020 7:05 AM CDT [facility] Anion Gap 10 8 - 16 mmol/L 01/21/2020 7:05 AM CDT [facility] BUN 29(H) 8.4 - 25.7 mg/dL 01/21/2020 7:05 AM CDT [facility] Creatinine 4.52(H) 0.72 - 1.25 mg/dL 01/21/2020 7:05 AM CDT [facility] eGFR by MDRD 13 mL/min/1.7 3m2 01/21/2020 7:05 AM CDT [facility] eGFR by MDRD 15 mL/min/1.7 3m2 01/21/2020 7:05 AM CDT [facility] Blood BLOOD SPECIMEN / Unknown 01/21/2020 5:30 AM CDT 01/21/2020 6:24 AM CDT Gabriel Magaña MD LAB - CHEMISTRY ORD ERABLES [facility] [address] [place] [address] * (ABNORMAL) CBC W/O DIFFERENTIAL (01/21/2020 5:30 AM CDT) WBC 5.3 4.4 - 10.7 x10E9/L 01/21/2020 6:27 AM CDT [facility] RBC 2.49(L) 3.80 - 5.40 x10E12/L 01/21/2020 6:27 AM CDT [facility] Hemoglobin 8.3(L) 12.0 - 17.6 gm/dL 01/21/2020 6:27 AM CDT [facility] Hematocrit 26.4(L) 35.2 - 51.7 % 01/21/2020 6:27 AM CDT [facility] MCV 106.0(H) 80.7 - 98.3 fl 01/21/2020 6:27 AM CDT [facility] MCH 33.3 26.7 - 34.0 pg 01/21/2020 6:27 AM CDT [facility] MCHC 31.4 30.8 - 35.9 gm/dL 01/21/2020 6:27 AM CDT [facility] Platelet Count 226 153 - 416 x10E9/L 01/21/2020 6:27 AM CDT [facility] RDW-CV 13.0 12.1 - 14.9 % 01/21/2020 6:27 AM CDT [facility] MPV 9.3(L) 9.4 - 12.9 fl 01/21/2020 6:27 AM CDT [facility] Blood BLOOD SPECIMEN / Unknown 01/21/2020 5:30 AM CDT 01/21/2020 6:24 AM CDT Gabriel Magaña MD LAB - HEMATOLOGY OR DERABLES [facility] [address] [place] [address] documented in this encounter Visit Diagnoses Not on filedocumented in this encounter Care Teams Dowel Inserting Machine Operator Relationship Specialty Start Date End Date Kwame Berg MD PCP - General Internal Medicine 01/19/19 [place] [id number] [facility] [address] [place] [id number] Orthopedic Surgery Orthopedic Surgery 10/13/19 documented as of this encounter
--- OUTSIDE RECORDS SUMMARY | 2024-04-25 21:19 | XMS_ITS | Encounter Summary ---
Author Organization [facility] Address [address] [facility] [place] [address] Care Team Providers Care Plan Coordinator Name Role Phone Kwame Berg MD Primary Care Provider [phone] Dylon Agudelo MD Unavailable [phone] Reason for Visit * Reason Onset Date Comments Question 04/05/2020 Encounter Details Date Type Department Care Team (Late st Contact Info) Description 04/05/2020 Telephone [facility] Medical [facility] - Surgery [address] [facility], [address] [address] [place] [id number] [address] Question Social History Tobacco Use Types Packs/Day Years [...] have Coronavirus / COVID-19? No / Unsure 04/04/2020 9:46 AM OPERATIONS STAFF SPECIALIST SECURITY documented as of this encounter Functional Status [...] Yes 01/17/2020 documented as of this encounter Miscellaneous Notes * Telephone Encounter - Imelda Mancia LPN - 04/05/2020 9:38 AM CST Verified that the patient picked up and started taking oral antibiotics from last visit. He is taking as directed. Advised he wash his arm with soap and water daily or more often if needed. Wild verbalized understanding and denies any further questions or concerns at this time. ATIONS STAFF SPECIALIST SECURITY * Telephone Encounter - Irasema Kapoor - 04/05/2020 9:12 AM CST Patient has an infection what can they use to clean the site ATIONS STAFF SPECIALIST SECURITY documented in this encounter Plan of Treatment Upcoming Encounters Date Type Department Care Team (Late st Contact Info) Description 08/23/2024 1:00 PM CDT Appointment [facility] Health Vascular Services [address] [facility], [address] [place] [address] [place] [address] [facility] [address] [place] [address] [place] [address] [facility] [address] [place] [address] documented as of this encounter Visit Diagnoses Not on filedocumented in this encounter Care Teams Plan Coordinator Relationship Specialty Start Date End Date Kwame Berg MD PCP - General Internal Medicine 01/19/[address] [place] [address] [facility] [address] [place] [address] Orthopedic Surgery Orthopedic Surgery 10/13/19 documented as of this encounter
--- OUTSIDE RECORDS SUMMARY | 2024-04-25 21:19 | XMS_ITS | Encounter Summary ---
Author Organization [facility] Address [facility] [address] Care Team Providers Care Manufacturing Technologist Name Role Phone Kwame Berg MD Primary Care Provider [phone] Dylon Agudelo MD Unavailable [phone] Reason for Visit * Reason Comments Follow-up discuss 1st rib rese ction Encounter Details Date Type Department Care Team (Late st Contact Info) Description 01/25/2021 9:00 AM CDT Office Visit [facility] - Surgery [id number] [place] [address], [address] [place] [address] Delmer Patrick MD [address] [place] [address] Superior vena cava occlusion (HCC) (Primary Dx); ESRD (end stage renal disease) (HCC) Social History Tobacco Use Types Packs/Day Years [...] - Inhaled Oxygen Concentration - - Weight 60.8 kg (134 lb) 01/25/2021 9:08 AM CDT Height 157.5 cm (5' 2) 01/25/2021 9:08 AM CDT Body Mass Index 24.51 01/25/2021 9:08 AM CDT documented in this encounter Functional [...] this encounter Patient Instructions * Patient Instructions* Neli Das LPN - 01/25/2021 9:10 AM CDT Patient's medications and allergies were reviewed with the patient today. Patient was instructed tocontact primary care physician or ordering provider with any questions regarding medications. documented in this encounter Progress Notes * Delmer Patrick MD - 01/25/2021 9:43 AM CDT Images from the original note were not included. * Delmer Patrick MD - 01/25/2021 9:32 AM CDT Images from the original note were not included. Office Visit Vascular Surgery [facility] with [facility] Name: Jules Mitchell Age: [age] year old Sex: male Primary Care Provider: Kwame Berg MD Vascular Surgeon: Delmer Patrick MD Chief Complaint: Discuss possible need for 1st rib resection. 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 Pt presents to office today to discuss possible need for 1st rib resection procedure post fistulogram findings on 12/20/20. Right upper arm AV graft is currently being used without difficulties for hemodialysis treatments. Pt states he has a palpable thrill, mild pain and swelling at upper arm from being stuck with thoseneedles. No upper extremity weakness, No hand pain, No obvious edema to right upper arm, No skin wo unds/lesions to right arm. Patient denies any shortness of breath or chest pain. Denies any seizures. Denies any blindness in his eye. Denies any neck fullness difficulty swallowing or difficulty breathing. Past Medical History: Diagnosis Date ??? Cancer 2000 pt unsure of type of cancer ??? Chronic kidney disease ??? ESRD (end stage renal disease) [facility] -,,sat 01/25/21 ??? High blood pressure ??? [...] PROCEDURE/SURGERY 10/20/2019 RIGHT UPPER ARM ARTERIOVENOUS FISTULA (Not in a hospital admission) No Known Allergies Social History Tobacco Use ??? Smoking status: Former Smoker Quit date: 10/12/2012 Years since quittin.2 ??? Smokeless tobacco: Never Used Substance Use Topics ??? Alcohol use: Not Currently Family History Problem Relation Name Age of Onset ??? Hypertension Mother ??? Hypertension Sister ??? Diabetes - Type 2 Sister Review of Systems: ?? General: (-) fatigue, (-)weight loss ?? Neuro: (-) mental status changes, (-) dizziness ?? Cardiovascular: (-) chest pain or palpitations ?? Pulmonary: (-) shortness of breath, (-) wheezing ?? Musculoskeletal: (-) muscle pain or joint pain ?? Skin: (-) Rashes, (-) texture changes ?? Hematologic: (-) easy bruising or bleeding ?? Vascular: (-) Claudication, (-)rest pain, (-)numbness, (-)tingling, (- )paresthesia, (-)paralysis, (-)coolness, (-)discoloration, (-)wounds, (+)right upper arm AV graft. Objective: Physical Examination: ?? General: Alert awake and oriented x3, nondistressed ?? Ears: Hearing is normal ?? Mouth: Moist Mucosa ?? Neck: Midline trachea ?? Chest: No increased work of breathing ?? Abdomen: Soft, non tender ?? Upper Extremity Exam ?? Right: Palpable Radial Pulse, Palpable Brachial Pulse. Strong hand toll gate keeper. +edema, No erythema, No skin wounds. Right upper arm AV graft-palpable thrill. Left: Palpable Radial Pulse, Palpable Brachial Pulse. Lab Review: Have been reviewed in the [facility] chart. Imaging: Have been reviewed in the [facility] chart. Assessment / Plan Patient is a 75-year-old gentleman with a central venous high-grade stenosis/occlusion. Patient hasminimal symptoms but this lesion has been present and returned after angioplasty. Discussed risks and benefits about diagnostic angiography laser atherectomy and central stenting. Talked about the risk of injury to the heart which can cause . Talked about stent implantation stent migration stent thrombosis. Talked about the possibility of not being able to complete the procedure. Also talkedabout the benefits of the procedure such as having in-line flow from the arm to reduce swelling to reduce collaterals in the neck. Patient is not in acute need for surgery this would be an attempt to improve collaterals and outflow but he seems moderately stable at this current time. He was accompanied by his family member who I encouraged them all to have a discussion at home to see if this is the right procedure for him. Provided my business card and my personal cell phone number so they can reach me with any questions. Counseling was performed chart review was performed and 25 min was spent with the patient and family. Feli Rai APRN-[facility] Partnership[facility] documented in this encounter Miscellaneous Notes * Addendum Note - Shahnaz Marin - 01/31/2021 7:12 AM CDTAddended by: SHAHNAZ MARIN on: 01/31/2021 07:12 AM Modules accepted: Level of Service documented in this encounter Plan of Treatment Upcoming Encounters Date Type Department Care Team (Late st Contact Info) Description 08/23/2024 1:00 PM CDT Appointment [facility] Vascular Services [address] [facility], [address] [place] [address] [place] [id number] [facility] [address] [place] [address] [place] [id number] [facility] [address] [place] [address] documented as of this encounter Visit Diagnoses Diagnosis Superior vena cava occlusion (HCC)- Primary Compression of vein ESRD (end stage renal disease) (HCC) End stage renal disease documented in this encounter Care Teams Manufacturing Technologist Relationship Specialty Start Date End Date Kwame Berg MD PCP - General Internal Medicine 01/19/19 [place] [id number] [facility] [address] [place] [address] Orthopedic Surgery Orthopedic Surgery 10/13/19 documented as of this encounter
--- OUTSIDE RECORDS SUMMARY | 2024-04-25 21:19 | XMS_ITS | Encounter Summary ---
Author Organization [facility] Address [address] [place] [address] Care Team Providers Care Mobile Equipment Servicer Name Role Phone Kwame Berg MD Primary Care Provider [phone] Dylon Agudelo MD Unavailable [phone] Reason for Visit * Radiology Services (Routine) - Closed Specialty Diagnoses / Procedures Referred By Contac t Referred To Contact Diagnoses Encounter regarding vascular access for dialysis for end-stage renal disease (HCC) Procedures IR [place] [address] [facility] [address] [place] [id number] Referral ID Status Reason Start Date Expiration Date Visits Re quested Visits Authorized [id number] Closed 05/25/2021 05/25/2022 1 1 Encounter Details Date Type Department Care Team (Latest Contact Info) Description 10/17/2021 9:51 AM CDT - 10/17/2021 11:59 PM CDT Hospital Encounter [facility] Health Vascular Services [id number] [place] [address], [address] [place] [id number] Tyshawn Heller MD [address] [place] [address] [place] [address] [facility] [address] [place] [address] Haja Marrufo MD Discharge Disposition: Home or Self Care Social [...] Sign Reading Time Taken Comments Blood Pressure 134/54 10/17/2021 11:12 AM CDT Pulse 60 10/17/2021 11:12 AM CDT Temperature 36.9 ??C (98.5 ??F) 10/17/2021 10:06 AM C DT Respiratory Rate 13 10/17/2021 11:12 AM CDT Oxygen Saturation 99% 10/17/2021 11:12 AM CDT Inhaled Oxygen Concentration - - Weight 58.1 kg (128 lb) 10/17/2021 10:06 AM CDT Height 157.5 cm (5' 2) 10/17/2021 10:06 AM CDT Body Mass Index 23.41 10/17/2021 10:06 AM CDT documented in this encounter Functional [...] time every day after a meal. albuterol (PROVENTIL;VENTOLIN) (5 MG/ML) 0.5% nebulizer solution 06/14/2021 01/16/2022 amLODIPine (NORVASC) 5 MG tablet Take 5 mg by mouth once daily 01/16/2022 dilTIAZem (CARDIZEM) 60 MG tablet 08/10/2021 01/16/2022 dilTIAZem coated beads 24hr (CARDIZEM CD) 120 MG capsule Take 1 capsule by mouth once daily Do not crush or chew. 30 capsule 01/17/2020 01/16/2022 docusate sodium (COLACE) 100 MG capsule Take 100 mg by mouth once daily as needed 05/28/2019 01/16/2022 folic acid (FOLVITE) 1 MG tablet 1 mg by Enteral route once daily 05/13/2022 levETIRAcetam (Keppra) 500 MG tablet Keppra 500 [...] 10/21/2022 vitamin D, ergocalciferol, (DRISDOL) 1.25 MG (24840 UT) capsule Take 1 (one) capsule by mouth every 30 days 10/18/2022 documented as of this encounter Progress Notes * Madelyn Bailey RN - 10/17/2021 10:11 AM CDT Patient has right upper arm AVG that is pulsatile. Pt and nephew denies any problems with access during dialysis treatment. documented in this encounter H&P Notes * Haja Marrufo MD - 10/17/2021 10:20 AM CDT Chief Complaint ESRD History and Physical Jules Mitchell is a 76 year old male. ESRD, increased pulsatility per AVF Past Medical History: Diagnosis Date ??? Cancer 2000 pt unsure of type of cancer ??? Chronic kidney disease ??? ESRD (end stage renal disease) [facility],sat 01/25/21 ??? High blood pressure ??? Pure [...] Encounter Medication Sig Dispense Refill ??? albuterol (PROVENTIL;VENTOLIN) (5 MG/ML) 0.5% nebulizer solution ??? allopurinol (ZYLOPRIM) 100 MG tablet Take 100 mg by mouth once daily ??? amLODIPine (NORVASC) 5 MG tablet Take 5 mg by mouth once daily (Patient not taking: Reported on10/17/2021) ??? apixaban (ELIQUIS) 2.5 MG tablet Take 1 tablet by mouth 2 times daily 60 tablet 0 ??? atorvastatin (LIPITOR) 20 MG tablet Take 20 mg by mouth at bedtime 0 ??? dilTIAZem (CARDIZEM) 30 MG tablet Take 30 mg by mouth 3 times daily ??? dilTIAZem (CARDIZEM) 60 MG tablet ??? dilTIAZem coated beads 24hr (CARDIZEM CD) 120 MG capsule Take 1 capsule by mouth once daily Do not crush or chew. (Patient not taking: Reported on 10/17/2021) 30 capsule 0 ??? docusate sodium (COLACE) 100 MG capsule Take 100 mg by mouth once daily as needed (Patient not taking: No sig reported) ??? folic acid (FOLVITE) 1 MG tablet 1 mg by Enteral route once daily ??? furosemide (LASIX) 80 MG tablet Take 80 mg by mouth 2 times daily ??? levETIRAcetam (KEPPRA) 100 [...] by mouth once daily (Patient not taking: No sig reported) ??? tamsulosin (FLOMAX) 0.4 MG capsule Take 0.4 mg by mouth at bedtime At the same time every day after a meal. ??? vitamin D, ergocalciferol, (DRISDOL) 1.25 MG (36800 UT) capsule Take 50,000 Units by mouth every 30 days (Patient not taking: No sig reported) No current facility-administered medications on file prior to encounter. Social History Tobacco Use ??? Smoking status: Former Smoker Quit date: 10/12/2012 Years since quittin.0 ??? Smokeless tobacco: Never Used Vaping Use ??? Vaping Use: Never used [...] wishes to proceed. documented in this encounter Procedure Notes * Haja Marrufo MD - 10/17/2021 11:14 AM CDTAssociated Order(s): IR ANGIO AV SHUNT IMAGING Date: 10/17/21 Surgeon: Haja Marrufo MD Locomotive Crane Operator Helper: Staff Pre-Procedure diagnosis: ESRD Time out and final pre-procedure assessment completed immediately prior to start of procedure. Medications reviewed. Post-Procedure diagnosis: Same Anesthesia: Local and IV Sedation Technical Procedure Performed: Right arm graft injection Peripheral Venoplasty Central Venoplasty Conscious/moderate sedation Findings: Prior to beginning the procedure, informed consent was obtained including the mario elements of the procedures, risks, and benefits. The patient was brought to the procedure room and the right arm prepped and draped in the standard sterile fashion. The soft tissues overlying the graft were anesthetized with 1% lidocaine and the graft was accessed in the antegrade direction with a micropuncture needle. A microwire was advanced centrally. The access was upsized using a transitional 5 Prydeinig micropuncture dilator sheath, through which a graft injection was performed in stations to the chest. This demonstrated Patency of the graft segment with recurrent, intermediate grade stenosis at the venous anastomosis. Remainder of peripheral venous outflow shown to be widely patent. 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 The SVC which shownto be patent.. The outflow of the graft was manually occluded and a reflux contrast injection performed. This demonstrated patency of the arterial anastomosis and arterial inflow. A guidewire was advanced centrally and the access upsized using a 8 Fr vascular sheath. A 8 mm x 40mm was inserted, advanced across the venous anastomotic stenosis, and inflated. A waist was noted, which subsequently effaced. A repeat contrast injection demonstrated resolution of the stenosis without residual narrowing. At this time, a 12 mm x 40 mm balloon was advanced across the above-described central venous stenosis. A prolonged balloon inflation was performed. Repeat contrast injection demonstrated mild to moderate residual stenosis. As result, a 12 mm x 40 mm drug coated balloon was advanced across the stenosis and inflated for a prolonged period of time. The balloon was deflated and removed. A repeat contrast injection demonstrated mild residual stenosis, which was felt to be nonflow limiting at this time. The sheath was removed and hemostasis was achieved with manual compression. Patient tolerated the procedure well; no immediate complication. 25 mL Isovue contrast media administered 4.5 mGy dose Moderate IV conscious sedation was administered by Dr. Marrufo using 0.5 mg of Versed and 100 mcg ofFentanyl. The patient's airway and condition was evaluated immediately prior to sedation and/or analgesia. The patient was independently monitored by a registered nurse for 20 minutes using automatedblood pressure, EKG and pulse oximetry. There were no complications. Disposition: Home Status: Stable Drain or Pack: None Additional information/Complications: None Estimated blood loss: negligible Specimen(s) removed: No Specimen During the post-procedure debrief all intra-procedure verbal order medications ordered by the proceduralist were reviewed and authenticated. Operative note was dictated: Yes documented in this encounter Plan of Treatment Upcoming Encounters Date Type Department Care Team (Late st Contact Info) Description 08/23/2024 1:00 PM CDT Appointment [facility] Vascular Services [address] [place] [address], [address] [address] [place] [address] [facility] [address] [place] [address] [place] [address] [facility] [address] [place] [address] documented as of this encounter Procedures Procedure Name Priority Date/Time Associated Diagnosis Comments CARDIAC RHYTHM STRIP ORDER 11/01/2021 1:51 PM CDT IR ANGIO AV SHUNT IMAGING Routine 10/17/2021 11:01 AM CDT ESRD (end stage renal disease) ([facility]) documented in this encounter Results * CARDIAC RHYTHM STRIP ORDER (11/01/2021 1:51 PM CDT) Narrative 11/01/2021 1:51 PM CDT Ordered by an unspecified provider. Scanned Document CARDIAC SERVICES ORD ERABLES * IR ANGIO AV SHUNT IMAGING (10/17/2021 11:01 AM CDT) Anatomical Region Laterality Modality Lower Extremity, Upper Extremity, Chest X-Ray Angiography Narrative 10/17/2021 11:14 AM CDT Haja Marrufo MD ? 10/17/2021 11:17 AM Date: ??10/17/21 Surgeon: Haja Marrufo MD Locomotive Crane Operator Helper: Staff Pre-Procedure diagnosis: ESRD Time out and final pre-procedure assessment completed immediately prior to start of procedure. Medications reviewed. Post-Procedure diagnosis: Same Anesthesia: Local and IV Sedation Technical Procedure Performed: Right arm graft injection Peripheral Venoplasty Central Venoplasty Conscious/moderate sedation Findings: Prior to beginning the procedure, informed consent was obtained including the mario elements of the procedures, risks, and benefits. ??The patient was brought to the procedure room and the right arm prepped and draped in the standard sterile fashion. ?? The soft tissues overlying the graft were anesthetized with 1% lidocaine and the graft was accessed in the antegrade direction with a micropuncture needle. ??A microwire was advanced centrally. The access was upsized using a transitional 5 Prydeinig micropuncture dilator sheath, through which a graft injection was performed in stations to the chest. ??This demonstrated Patency of the graft segment with recurrent, intermediate grade stenosis at the venous anastomosis. ??Remainder of peripheral venous outflow shown to be widely patent. 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 ??The SVC which shown to be patent.. The outflow of the graft was manually occluded and a reflux contrast injection performed. ??This demonstrated patency of the arterial anastomosis and arterial inflow. A guidewire was advanced centrally and the access upsized using a 8 Fr vascular sheath. ??A 8 mm x 40 mm was inserted, advanced across the venous anastomotic stenosis, and inflated. ??A waist was noted, which subsequently effaced. ??A repeat contrast injection demonstrated resolution of the stenosis without residual narrowing. ??At this time, a 12 mm x 40 mm balloon was advanced across the above-described central venous stenosis. ??A prolonged balloon inflation was performed. ??Repeat contrast injection demonstrated mild to moderate residual stenosis. ??As result, a 12 mm x 40 mm drug coated balloon was advanced across the stenosis and inflated for a prolonged period of time. ??The balloon was deflated and removed. ??A repeat contrast injection demonstrated mild residual stenosis, which was felt to be non flow limiting at this time. The sheath was removed and hemostasis was achieved with manual compression. ??Patient tolerated the procedure well; no immediate complication. 25 mL Isovue contrast media administered 4.5 mGy dose Moderate IV conscious sedation was administered by Dr. Marrufo using 0.5 mg of Versed and 100 mcg of Fentanyl. ??The patient's airway and condition was evaluated immediately prior to sedation and/or analgesia. ??The patient was independently monitored by a registered nurse for 20 minutes using automated blood pressure, EKG and pulse oximetry. ??There were no complications. Disposition: Home Status: Stable Drain or Pack: None Additional information/Complications: None Estimated blood loss: negligible Specimen(s) removed: No Specimen During the post-procedure debrief all intra-procedure verbal order medications ordered by the proceduralist were reviewed and authenticated. Operative note was dictated: Yes Haja Marrufo MD IR ORDERABLES documented in this encounter Visit Diagnoses Diagnosis ESRD (end stage renal disease) (HCC)- Primary End stage renal disease documented in this encounter Administered Medications Inactive Administered Medications - up to 3 most recent administrations Medication Order MAR Action Action Date Dose Rate Site 0.9% NaCl infusion at 50 mL/hr, Intravenous, INTRA-PROCEDURE MULTIPLE, Starting on Fri10/17/21 at 1004, Until Susan 10/18/21 at 0142, Intra-procedure (IR) $ New Bag/Syringe 10/17/2021 11:04 AM CDT 75 mL 50 mL/hr fentaNYL (PF) (Sublimaze) injection 25-100 mcg 25-100 mcg, Intravenous, INTRA-PROCEDURE MULTIPLE, Starting on Fri10/17/21 at 1004, Until Susan 10/18/21 at 0142, Administer every 5 minutes during procedure as [...] in the MAR., Intra-procedure (IR) $ Given 10/17/2021 10:54 AM CDT 50 mcg $ Given 10/17/2021 10:41 AM CDT 50 mcg fentaNYL (Sublimaze) injection 0.05 mg/mL ADS Med 1 dose, Starting on Fri10/17/21 at 1003, Until Fri10/17/21 at 1041, Created by cabinet override Patient preference for [...] % contrast Intravenous, INTRA-PROCEDURE MULTIPLE, Starting on Fri10/17/21 at 1004, Until Susan 10/18/21 at 0142, Intra/Post-procedure $ Given - Contrast 10/17/2021 11:04 AM CDT 25 mL lidocaine (Xylocaine PF) 1% injection ADS Med 1 dose, Starting on Fri10/17/21 at 1002, Until Fri10/17/21 at 1036, Created by cabinet override lidocaine PF (Xylocaine MPF) 1 % injection Infiltration, INTRA-PROCEDURE MULTIPLE, Starting on Fri10/17/21 at 1004, Until Susan 10/18/21 at 0142, Intra-procedure (IR) $ Given 10/17/2021 10:36 AM CDT 10 mg midazolam (Versed) 1 mg/mL injection ADS Med 1 dose, Starting on Fri10/17/21 at 1003, Until Fri10/17/21 at 1041, Created by cabinet override midazolam (Versed) injection 0.5-2 mg 0.5-2 mg, Intravenous, INTRA-PROCEDURE MULTIPLE, Starting on Fri10/17/21 at 1004, Until Susan 10/18/21 at 0142, Administer every 5 minutes during procedure as needed for sedation. Dose to be determined by physician., Intra-procedure (IR) $ Given 10/17/2021 10:41 AM CDT 0.5 mg documented in this encounter Care Teams Mobile Equipment Servicer Relationship Specialty Start Date End Date Kwame Berg MD PCP - General Internal Medicine 01/19/19 [place] [id number] [address] Orthopedic Surgery Orthopedic Surgery 10/13/19 documented as of this encounter
--- OUTSIDE RECORDS SUMMARY | 2024-04-25 21:19 | XMS_ITS | Encounter Summary ---
Author Organization [facility] Address [address] [place] [address] Care Team Providers Care Seedling Sorter Name Role Phone Kwame Berg MD Primary Care Provider [phone] Dylon Agudelo MD Unavailable [phone] Reason for Referral * (Routine) - Closed Specialty Diagnoses / Procedures Referred By Contac t Referred To Contact Procedures Follow [place] [address] [address] Referral ID Status Reason Start Date Expiration Date Visits Re quested Visits Authorized [id number] Closed 05/23/2022 05/23/2023 1 1 COORDINATOR Encounter Details Date Type Department Care Team (Latest Contact Info) Description 05/23/2022 1:28 PM DOCK COORDINATOR - 05/23/2022 11:59 PM DOCK COORDINATOR Hospital Encounter [facility] Vascular Services [id number] [place] [address], [address] [place] [address] [place] [address] [facility] [address] [place] [address] Discharge Disposition: Home or Self [...] In the last 10 days, have sveta andersen been in contact with someone who was confirmed or suspected to have Coronavirus/COVID-19? No / Unsure 05/17/2022 8:08 AM DOCK COORDINATOR documented as of this encounter Last Filed Vital Signs Vital Sign Reading Time Taken Comments Blood Pressure 153/65 05/23/2022 3:35 PM DOCK COORDINATOR Pulse 80 05/23/2022 3:35 PM DOCK COORDINATOR Temperature 37.2 ??C (99 ??F) 05/23/2022 2:11 PM DOCK COORDINATOR Respiratory Rate 19 05/23/2022 3:35 PM DOCK COORDINATOR Oxygen Saturation 98% 05/23/2022 3:35 PM DOCK COORDINATOR Inhaled Oxygen Concentration - - Weight 55.3 kg (122 lb) 05/23/2022 2:05 PM DOCK COORDINATOR Height 157.5 cm (5' 2) 05/23/2022 2:05 PM DOCK COORDINATOR Body Mass Index 22.31 05/23/2022 2:05 PM DOCK COORDINATOR documented in this encounter Functional Status Functional [...] 10/21/2022 vitamin D, ergocalciferol, (DRISDOL) 1.25 MG (91456 UT) capsule Take 1 (one) capsule by mouth every 30 days 10/18/2022 documented as of this encounter Progress Notes * Shikha Cyr RN - 05/23/2022 2:09 PM CST Patient has right upper arm access, bruit and thrill absent. Patient here for clotted access and catheter placement COORDINATOR documented in this encounter H&P Notes * Osmany oMlina MD - 05/23/2022 1:58 PM CST Chief Complaint ESRD History and Physical Jules Mitchell is a 76 year old male. This patient has had multiple current thromboses of his access isgoing to be coming in today for a catheter as he is clotted again Past Medical History: Diagnosis Date ??? Cancer (CMS/HCC) 2000 pt unsure of type of cancer ??? Chronic kidney disease ??? Dementia (CMS/HCC) ??? [facility] stage [facility] ??? High blood pressure ??? Pure hypercholesterolemia ??? Stroke (CMS/HCC) per pt Past Surgical History: Procedure Laterality [...] to Encounter Medication Sig Dispense Refill ??? allopurinol (ZYLOPRIM) [...] tablet by mouth 3 times daily ??? furosemide (LASIX) 80 MG tablet [...] ??? vitamin D, ergocalciferol, (DRISDOL) 1.25 MG (49179 UT) capsule Take 50,000 Units by mouth every 30 days (Patient not taking: Reported on 08/15/2021) No current facility-administered medications on file prior to encounter. Social History Tobacco Use ??? Smoking status: Former Types: Cigarettes Quit date: 10/12/2012 Years since quittin.6 ??? Smokeless tobacco: Never Vaping Use ??? [...] or pain Impression/Plan: ESRD. Will plan for dialysis catheterI have discussed the risks, benefits and alternatives with thepatient who understands and wishes to proceed. COORDINATOR documented in this encounter Procedure Notes * Osmany Molina MD - 05/23/2022 3:33 PM CST [facility] Jules Mitchell 1945 DATE OF PROCEDURE: 05/23/2022 ORDERING PHYSICIAN: Dr. Molina PROCEDURE: Right internal jugular vein tunneled dialysis catheter INDICATIONS FOR PROCEDURE: Clotted graft multiple times DESCRIPTION OF PROCEDURE: The patient's left neck was prepped and draped in usual sterile fashion. A time-out was done. Ultrasound guidance was used to cannulate the left internal jugular vein with amicropuncture needle and a wire was advanced into the central circulation. We swap the fine wire upfor a 035 wire and then placed a peel-away sheath down into the central circulation. A 27 cm catheter was tunneled from the chest wall up to the neck incision and placed down the peel-away sheath andthe peel-away sheath was extracted completely. Good flow was obtained of the catheter. Catheter secured with 2-0 Prolene to the skin the neck incision was closed with 3-0 Vicryl FINDINGS: Patent left internal jugular vein IMPRESSION: Successful catheter placement DICTATED BY: Osmany Molina M.D. DATE DICTATED: 05/23/2022 Interventional Post-Operative/Procedure Notes Surgeon: Dr. Molina Pre Procedure Diagnosis: ESRD Post Procedure Diagnosis: ESRD Anesthesia: Local 1% lidocaine and IV sedation Disposition: OPS Status: Stable Drain or Pack: None Additional Information/Complications: None Estimated Blood Loss: Negligible Specimen: None COORDINATOR documented in this encounter Plan of Treatment Upcoming Encounters Date Type Department Care Team (Late st Contact Info) Description 08/23/2024 1:00 PM CDT Appointment [facility] Vascular Services [address] [facility], [address] [place] [address] [place] [address] [facility] [address] [place] [id number] [place] [address] [facility] [address] [place] [address] Pending Results Name Type Priority Associated Diagnoses Date /Time IR CENTRAL LINE INSERT TUNNEL Imaging Routine Encounter regarding vascular access for dialysis for end-stage renal disease (HCC) 05/23/2022 3:29 PM DOCK COORDINATOR Scheduled Orders Name Type Priority Associated Diagnoses Orde r Schedule IR CENTRAL LINE INSERT TUNNEL Imaging Routine Encounter regarding vascular access for dialysis for end-stage renal disease (HCC) For radiant use only for 1 Occurrences starting 05/23/2022 until 05/23/2022 documented as of this encounter Procedures Procedure Name Priority Date/Time Associated Diagnosis Comments CARDIAC RHYTHM STRIP ORDER 05/29/2022 8:03 PM DOCK COORDINATOR documented in this encounter Results * CARDIAC RHYTHM STRIP ORDER (05/29/2022 8:03 PM DOCK COORDINATOR) Narrative 05/29/2022 8:03 PM DOCK COORDINATOR Ordered by an unspecified provider. Scanned Document CARDIAC SERVICES ORD ERABLES documented in this encounter Visit Diagnoses Diagnosis Encounter regarding vascular access for dialysis for end-stage renal disease (HCC)- Primary End stage renal disease documented in this encounter Administered Medications Inactive Administered Medications - up to 3 most recent administrations Medication Order MAR Action Action Date Dose Rate Site heparin 1000 units/ml injection ADS Med 1 dose, Starting on Fri05/23/22 at 1525, Until Fri05/23/22 at 1529, Created by cabinet override heparin injection 2,000 Units 2,000 Units, Intracatheter, ONCE, 1 dose, On Fri05/23/22 at 1530 $ Given 05/23/2022 3:29 PM DOCK COORDINATOR 2,000 Units lidocaine (Xylocaine PF) 1% injection ADS Med 1 dose, Starting on Fri05/23/22 at 1455, Until Fri05/23/22 at 1531, Created by cabinet override lidocaine PF (Xylocaine MPF) 1 % injection Infiltration, INTRA-PROCEDURE MULTIPLE, Starting on Fri05/23/22 at 1500, Until Fri05/24/22 at 0143, Intra-procedure (IR) $ Given 05/23/2022 3:31 PM DOCK COORDINATOR 10 mL documented in this encounter Care Teams Seedling Sorter Relationship Specialty Start Date End Date Kwame Berg MD PCP - General Internal Medicine 01/19/19 [place] [id number] [address] Orthopedic Surgery Orthopedic Surgery 10/13/19 documented as of this encounter
--- OUTSIDE RECORDS SUMMARY | 2024-04-25 21:19 | XMS_ITS | Encounter Summary ---
Author Organization [facility] Address [address] [place] [address] Care Team Providers Care Equipment Operation Instructor Name Role Phone Kwame Berg MD Primary Care Provider [phone] Dylon Agudelo MD Unavailable [phone] Reason for Visit * Auth/Cert Specialty Diagnoses / Procedures Referred By Vivienne burrell Referred To Contact Procedures ARTERIOVENOUS FISTULA TRANSPOSITION / SUPERFICIALIZATION Referral ID Status Reason Start Date Expiration Date Visits Re quested Visits Authorized [id number] 1 1 Encounter Details Date Type Department Care Team (Late st Contact Info) Description 03/15/2020 1:38 PM COMMUNITY PLANNER Anesthesia Event [facility] - Perioperative Surgery [address] [place] [address] Armando Cullen MD [address] [facility] [place] [address] Flores Holland APRN-AGRICULTURAL APPRAISER [address] [place] [address] Anesthesia Record Procedure Summary Procedure Name Responsible Anesthesiologist Anesthesia Start Time Anesthesia Stop Time RIGHT ARM DIALYSIS GRAFT (Right: Arm) Armando Cullen MD 03/15/20 1338 03/15/20 1509 Events Date Time Event Comment 03/15/2020 1242 1338 An Start 1338 An Start Data 1342 PT Reassessment 1342 Electnc Sig 1359 Timeout Anesthesia part icipated in timeout at the time documented in the record by nursing. 1508 an stop data 1509 An Stop Meds Name Total midazolam 2 mg/2mL injection 1 mg fentaNYL 100 mcg/2mL injection 75 mcg lidocaine 2% (PF) injection (20 mg/mL) 5 0 mg propofol 200 mg/20mL injection 30 mg propofol 1000 mg/100mL infusion 253.91 m g ceFAZolin (ANCEF) 2,000 mg in 50 ml IVPB 2 g heparin 1,000 units/mL - 10mL injection 3,000 Units protamine 50 mg/5mL injection 20 mg 0.9% NaCl infusion 500 mL * Agents Name Exp. N2O O2 * Blood No blood administrations on file. Lines, Drains, and Airways Type Details Placement Removal Hemodialysis AV Access 10/20/19; 1426; Fistula; Right Upper Arm 10/20/19 1426 by Clare Mann RN Hemodialysis Tunneled Catheter Subclavian (Right); 05/03/20 10/20/19 1038 by 05/03/20 0000 by Danisha Roman RN Procedural Site (Incision) 03/15/20; 1401; Right; Arm; 03/15/20; 2214 03/15/20 1401 by Lenore Kiran RN 03/15/20 2214 by Profista, Auto Release documented in this encounter Social [...] have Coronavirus / COVID-19? No / Unsure 03/03/2020 10:05 AM COMMUNITY PLANNER documented as of this encounter Functional Status [...] as of this encounter Progress Notes * Flores Holland APRN-AGRICULTURAL APPRAISER - 03/15/2020 3:09 PM CST ANESTHESIA POSTOP EVALUATION NOTE Procedure: RIGHT ARM DIALYSIS GRAFT (Right Arm) Jules Rasmussen is a 74 year old male Patient Vitals for the past 6 hrs: BP Temp Pulse Resp SpO2 Pain Scale/Observation 03/15/20 1240 147/69 98.1 ??F (36.7 ??C) 77 18 100 % No/denies pain Anesthesia Type: MAC * No Diagnosis Codes entered * Mental Status: awake, alert, orientated and sufficiently recovered from acute administration of anesthesia to participate in the evaluation Neuro Status: No numbess, tingling or visual disturbances Respiratory Function: natural Cardiac Function: stable Postop Pain: adequate Postop Hydration: adequate Postop Nausea: none Assessment: no apparent anesthetic complications, patient tolerated procedure well and no evidence of recall Patient Disposition: Release from Anesthesia Care COMPLICATIONS: No complications documented. UNITY PLANNER * Armando Cullen MD - 03/15/2020 12:37 PM CST ANESTHESIA PREOPERATIVE EVALUATION NOTE Procedure: RIGHT ARM DIALYSIS FISTULA TRANSPOSITION POSS RIGHT ARM DIALYSIS GRAFT (Arm) Vitals: No data found. ANESTHESIA PRE-EVALUATION NOTE Physical Exam: Orientation X3 Airway/Mallampati Score: II Mouth Opening Distance: 3 fingerwidths Neck ROM: full TM Distance: > 3 FB Teeth: edentulous Lungs: clear to ausculation bilaterally Review of Systems: History of anesthetic complications: No Diagnostic Tests: ECG(s) reviewed: Yes Echo(s) reviewed: Yes. Lab(s) reviewed: Yes. Other Findings: [place] [address] ?? [place] [address] ?? Echocardiography Examination Transthoracic ?? Name: [facility]#: MR#: [id number] Admission Number: [id number] Study Date: 01/19/2020 Study Time: 09:11 AM Date Of : 1945 Age: 74 years Height: 62 in. (157.5 cm) Weight: 138.01 lbs. (62.60 kg) BSA: 1.63 m2 Gender: Male Blood Pressure: 147 mmHg / 51 mmHg Heart Rate: 80 bpm ?? Exam Details Procedure Ordered: ECHOCARDIOGRAM 2D W/DOPPLER Procedure Components: Complete 2D, M-mode, complete spectral Doppler, color Doppler Procedure Status: Routine study Facility Location: [facility] Indication: Atrial Fibrillation ?? Procedure Telegraph Repeater Installer: Pavel Pimentel RDCS Ordering Provider: Kwame Berg MD Reading Physician: Lorenzo Quintero MD Ordering Provider: Mana Oliva MD Reading Group: [facility] [place] [facility] ?? Conclusions ?? Left Ventricle: ??? Left ventricle [...] evaluated by biplane method of disks. ?? ANESTHESIA PLAN ASA Score: 3 NPO Status: No solids since midnight Anesthesia Plan: MAC Planned Postop Destination: OPS Anesthetic plan was discussed with: patient Anesthetic Plan discussion was: Consented The patient's procedural Anesthetic Plan was discussed with the AGRICULTURAL APPRAISER. BMI, Height, Weight Tobacco History Estimated body mass index is 24.44 kg/m?? as calculated from the following: Height as of this encounter: 1.575 m (5' 2). Weight as of this encounter: 60.6 kg (133 lb 9.6 oz). Social History Tobacco Use Smoking Status Former Smoker ??? Quit date: 10/12/2012 ??? Years since quittin.4 Smokeless Tobacco Never Used Alcohol History Drug History Social History Substance and Sexual Activity Alcohol Use Not Currently Social History Substance and Sexual Activity Drug Use Never Outpatient Medications: Inpatient Medications: Outpatient Medications Marked as Taking for the 03/15/20 encounter (Hospital Encounter) Medication Sig Last Dose ??? allopurinol Take 100 mg by mouth once daily 03/15/2020 at Unknown time ??? apixaban Take 1 tablet by mouth 2 times daily 03/14/2020 at 1800 ??? atorvastatin Take 20 mg by mouth at bedtime 03/14/2020 at Unknown time ??? dilTIAZem coated beads 24hr Take 1 capsule by mouth once daily Do not crush or chew. 03/15/2020at Unknown time ??? docusate sodium Take 100 mg by mouth once daily as needed 03/14/2020 at Unknown time ??? furosemide Take 80 mg by mouth 2 times daily 03/14/2020 at Unknown time ??? HYDROcodone-acetaminophen Take 0.5-1 tablets by mouth every 6 hours as needed Past Month at Unknown time ??? lisinopril Take 5 mg by mouth once daily 03/15/2020 at Unknown time ??? rOPINIRole Take 0.5 mg by mouth Three times a week 03/14/2020 at 0630 ??? sevelamer carbonate Take 800 mg by mouth 3 times daily with meals 03/14/2020 at Unknown time ??? tamsulosin Take 0.4 mg by mouth at bedtime At the same time every day after a meal. 03/14/2020 at Unknown time Current Facility-Administered Medications Medication Dose Last Admin ??? 0.9% NaCl IV ??? ceFAZolin 2 g ??? lidocaine 0.5 mL Allergies: No Known Allergies Relevant Problems No relevant active problems Problem List: Patient Active Problem List Diagnosis Date Noted ??? ESRD (end stage renal disease) 10/21/2019 Priority: Not Prioritized ??? Primary osteoarthritis of left hip 06/29/2019 Priority: Not Prioritized Medical History: Past Medical History: Diagnosis Date ??? Cancer 2000 pt unsure of type of cancer ??? Chronic kidney disease ??? ESRD (end stage renal disease) Evelyn [facility] ,[facility] 11/2419 ??? ESRD on dialysis ??? High blood pressure ??? Pure hypercholesterolemia ??? Stroke per pt Surgical History: Past Surgical History: Procedure Laterality Date ??? HIP ARTHROPLASTY, TOTAL Left 01/12/2020 LEFT POSTERIOR ARTHROPLASTY TOTAL HIP ??? HIP ARTHROPLASTY, TOTAL 01/12/2020 LEFT POSTERIOR ARTHROPLASTY TOTAL HIP ??? INSERTION DIALYSIS CATHETER Right 04/2019 r chest tunneled cath ??? OTHER SURGERY Testicular surgery per nephew but not positive? VASCULAR PROCEDURE/SURGERY 10/20/2019 RIGHT UPPER ARM ARTERIOVENOUS FISTULA Lab Results: Recent Labs Component Name 01/31/20 0500 WBC 4.6 RBC 2.30* HCT 24.1* HGB 7.8* PLTCOUNT 236 MCV 104.8* MCH 33.9 MCHC 32.4 MPV 9.5 Recent Labs Component Name 01/31/20 0500 SODIUM 133* POTASSIUM 5.4* CALCIUM 8.8 CHLORIDE 97* CO2 26 GLUCOSE 92 BUN 35* CREATININE 6.11* Recent Labs Component Name 01/28/20 0400 01/18/20 0307 TSH - 0.392 BNP 36 - Invalid input(s): PREGTESTUR Recent Labs Component Name 01/31/20 0500 01/28/20 0400 01/24/20 0333 01/24/20 0333 ALT - - - 11 AST - - - 17 ALKPHOS - - - 66 ANIONGAP 10 - - 10 EGFR 9 - - 10 ALBUMIN - - - 3.5 FERRITIN - 4,204* - - IRON - 47* - - TIBC - 156* - - TRANSFERRIN - 125* - - - = values in this interval not displayed. UNITY PLANNER documented in this encounter Miscellaneous Notes * Anesthesia Transfer of Care - Flores Holland APRN-AGRICULTURAL APPRAISER - 03/15/2020 3:09 PM CST ANESTHESIA TRANSFER OF CARE NOTE Today's Date: 03/15/2020 Date of : 1945 Patient: Jules Rasmussen Procedure(s): RIGHT ARM DIALYSIS GRAFT Surgeon(s): Primary: Mario Iyer MD Preop Diagnosis: * No Diagnosis Codes entered * Pre-op Meds (From admission, onward) Start Stop Status Route Frequency Ordered 03/15/20 1230 0.9% NaCl infusion 03/15 1229 Dispensed IV PRE-OP CONTINUOUS 03/15/20 1219 03/15/20 1230 ceFAZolin (ANCEF) 2,000 mg in 50 ml IVPB 03/15 1338 Completed IV ONCE 03/15/20 1219 03/15/20 1341 fentaNYL (PF) (SUBLIMAZE) injection -- Sent PRN 03/15/20 1348 03/15/20 1422 heparin injection -- Sent PRN 03/15/20 1423 03/15/20 1411 heparinized saline 2 units/ml infusion -- Sent CONTINUOUS PRN 03/15/20 1411 03/15/20 1504 lidocaine 1% - EPINEPHrine 1:100,000 injection -- Sent PRN 03/15/20 1504 03/15/20 1346 lidocaine hcl (PF) (XYLOCAINE MPF) 2 % injection -- Sent PRN 03/15/20 1347 03/15/20 1230 lidocaine PF (XYLOCAINE MPF) 1 % injection 0.5 mL 03/16 0029 Verified INFILTRATION PRE-OP ONCE 03/15/20 1219 03/15/20 1338 midazolam (VERSED) injection -- Sent PRN 03/15/20 1347 03/15/20 1347 propofol (DIPRIVAN) infusion -- Sent CONTINUOUS PRN 03/15/20 1347 03/15/20 1346 propofol (DIPRIVAN) injection -- Sent PRN 03/15/20 1347 03/15/20 1451 protamine injection -- Sent PRN 03/15/20 1451 03/15/20 1450 protamine injection -- Sent PRN 03/15/20 1454 * No Diagnosis Codes entered * . No Known Allergies Vitals: Patient Vitals for the past 3 hrs: BP Temp Pulse Resp SpO2 03/15/20 1240 147/69 98.1 ??F (36.7 ??C) 77 18 100 % Lines, Drains, and Airways No lines, drains, or airways are recorded for this episode. Intraprocedure I/O Totals Intake 0.9% NaCl infusion 500.00 mL Total Intake 500 mL Output Estimated Blood Loss 25 mL Total Output 25 mL Net Net Volume 475 mL Patient Transfer Location: OPS Transport Airway: [...] of report from the receiving PACUteam. ECHO Kim UNITY PLANNER documented in this encounter Plan of Treatment Upcoming Encounters Date Type Department Care Team (Late st Contact Info) Description 08/23/2024 1:00 PM CDT Appointment [facility] Health Vascular Services [address], [address] [place] [address] [place] [address] [facility] [address] [place] [address] [place] [address] [facility] [address] [place] [address] documented as of this encounter Visit Diagnoses Not on filedocumented in this encounter Administered Medications Inactive Administered Medications - up to 3 most recent administrations Medication Order MAR Action Action Date Dose Rate Site 0.9% NaCl infusion at 20 mL/hr, Intravenous, PRE-OP CONTINUOUS, Starting on Fri03/15/20 at 1230, Until Fri03/15/20 at 1714, For Dialysis or Chronic Renal Failure patients. Use 500 ml bag and micro drip tubing, Pre-op $ New Bag/Syringe 03/15/2020 1:38 PM COMMUNITY PLANNER ceFAZolin (ANCEF) 2,000 mg in 50 ml IVPB 2,000 mg (2 g), at 100 mL/hr, Intravenous, ONCE, 1 dose, On Fri03/15/20 at 1230, Administer 30 minutes prior to surgical incision., Indication for anti-infective therapy: Surgical prophylaxis, Pre-op $ Given 03/15/2020 1:38 PM COMMUNITY PLANNER 2 g fentaNYL (PF) (SUBLIMAZE) injection PRN, Starting on Fri03/15/20 at 1341, Until Fri03/15/20 at 1509, Anesthesia Intra-op $ Given 03/15/2020 2:36 PM COMMUNITY PLANNER 25 mcg $ Given 03/15/2020 1:59 PM COMMUNITY PLANNER 25 mcg $ Given 03/15/2020 1:41 PM COMMUNITY PLANNER 25 mcg heparin injection PRN, Starting on Fri03/15/20 at 1422, Until Fri03/15/20 at 1509, Anesthesia Intra-op $ Given 03/15/2020 2:22 PM COMMUNITY PLANNER 3,000 Units lidocaine hcl (PF) (XYLOCAINE MPF) 2 % injection PRN, Starting on Fri03/15/20 at 1346, Until Fri03/15/20 at 1509, Anesthesia Intra-op $ Given 03/15/2020 1:46 PM COMMUNITY PLANNER 50 mg midazolam (VERSED) injection PRN, Starting on Fri03/15/20 at 1338, Until Fri03/15/20 at 1509, Anesthesia Intra-op $ Given 03/15/2020 1:38 PM COMMUNITY PLANNER 1 mg propofol (DIPRIVAN) infusion CONTINUOUS PRN, Starting on Fri03/15/20 at 1347, Until Fri03/15/20 at 1509, Anesthesia Intra-op Rate Change 03/15/2020 2:33 PM COMMUNITY PLANNER 60 mcg/kg/min 21.82 mL/hr Rate Change 03/15/2020 2:03 PM COMMUNITY PLANNER 60 mcg/kg/min 21.82 mL/ hr Rate Change 03/15/2020 1:57 PM COMMUNITY PLANNER 50 mcg/kg/min 18.18 mL/ hr propofol (DIPRIVAN) injection PRN, Starting on Fri03/15/20 at 1346, Until Fri03/15/20 at 1509, Anesthesia Intra-op $ Given 03/15/2020 1:46 PM COMMUNITY PLANNER 30 mg protamine injection PRN, Starting on Fri03/15/20 at 1451, Until Fri03/15/20 at 1509, Anesthesia Intra-op $ Given 03/15/2020 3:00 PM COMMUNITY PLANNER 10 mg $ Given 03/15/2020 2:51 PM COMMUNITY PLANNER 10 mg documented in this encounter Care Teams Equipment Operation Instructor Relationship Specialty Start Date End Date Kwame Berg MD PCP - General Internal Medicine 01/19/19 [place] [id number] [address] Orthopedic Surgery Orthopedic Surgery 10/13/19 documented as of this encounter
--- OUTSIDE RECORDS SUMMARY | 2024-04-25 21:19 | XMS_ITS | Encounter Summary ---
Author Organization [facility] Address [address] [place] [address] Care Team Providers Care Earth Auger Operator Name Role Phone Kwame Berg MD Primary Care Provider [phone] Dylon Agudelo MD Unavailable [phone] Encounter Details Date Type Department Care Team (Latest Contact Info) Description 02/11/2020 9:45 AM CDT Ancillary Procedure [facility] Orthopedics - Radiology [address] [place] [address] [place] [address] [facility] [address] [place] [address] Pain of left hip joint Social History Tobacco Use Types Packs/Day Years [...] Info) Description 08/23/2024 1:00 PM CDT Appointment [facility] Health Vascular Services [address] [facility], [address] [place] [address] [place] [address] [facility] [address] [place] [address] [place] [address] [facility] [address] [place] [address] documented as of this encounter Procedures Procedure Name Priority Date/Time Associated Diagnosis Comments XR HIP LEFT 2VW OR MORE Routine 02/11/2020 9:38 AM CDT Pain of left hip joint documented in this encounter Results * XR HIP LEFT 2VW OR MORE (02/11/2020 9:38 AM CDT) Anatomical Region Laterality Modality Pelvis, Lower Extremity Computed Radiography Narrative 02/11/2020 9:40 AM CDT Debi Tapia, RT(R) ? 02/15/2020 ??6:37 PM See progress notes for results Dylon Agudelo MD DIAGNOSTIC IMAGING O RDERABLES documented in this encounter Visit Diagnoses Diagnosis Pain of left hip joint documented in this encounter Care Teams Earth Auger Operator Relationship Specialty Start Date End Date Kwame Berg MD PCP - General Internal Medicine 01/19/19 [place] [address] [facility] [address] [place] [address] Orthopedic Surgery Orthopedic Surgery 10/13/19 documented as of this encounter
--- OUTSIDE RECORDS SUMMARY | 2024-04-25 21:19 | XMS_ITS | Encounter Summary ---
Author Organization [facility] Address [address] [facility] [place] [address] Care Team Providers Care Hadoop Application Developer Name Role Phone Kwame Berg MD Primary Care Provider [phone] Dylon Agudelo MD Unavailable [phone] Reason for Referral * Radiology Services (Routine) - Closed Specialty Diagnoses / Procedures Referred By Contac t Referred To Contact Diagnoses ESRD (end stage renal disease) (HCC) Procedures [place] [address] [employer] [address] [place] [phone] Referral ID Status Reason Start Date Expiration Date Visits Re quested Visits Authorized [id number] Closed 04/10/2020 04/10/2021 1 1 EM DEVELOPER ASSOCIATE MANAGER * Radiology Services (Routine) - Closed Specialty Diagnoses / Procedures Referred By Contac t Referred To Contact Diagnoses ESRD (end stage renal disease) (HCC) Procedures IR [place] [address] [employer] [address] [place] [phone] Referral ID Status Reason Start Date Expiration Date Visits Re quested Visits Authorized [id number] Closed 04/10/2020 04/10/2021 1 1 EM DEVELOPER ASSOCIATE MANAGER Reason for Visit * Reason Comments Post-Op [place] avg Encounter Details Date Type Department Care Team (Late st Contact Info) Description 04/10/2020 3:10 PM SYSTEM DEVELOPER ASSOCIATE MANAGER Office Visit [facility] - Surgery [address] [employer], [address] [address] [place] [address] [address] ESRD (end stage renal disease) (HCC) [...] COVID-19? No / Unsure 04/04/2020 9:46 AM SYSTEM DEVELOPER ASSOCIATE MANAGER documented as of this encounter Last Filed Vital Signs Vital Sign Reading Time Taken Comments Blood Pressure - - Pulse - - Temperature - - Respiratory Rate - - Oxygen Saturation - - Inhaled Oxygen Concentration - - Weight 60.3 kg (133 lb) 04/10/2020 2:04 PM SYSTEM DEVELOPER ASSOCIATE MANAGER Height 157.5 cm (5' 2) 04/10/2020 2:04 PM SYSTEM DEVELOPER ASSOCIATE MANAGER Body Mass Index 24.33 04/10/2020 2:04 PM SYSTEM DEVELOPER ASSOCIATE MANAGER documented in this encounter Functional Status [...] this encounter Patient Instructions * Patient Instructions* Imelda Mancia LPN - 04/10/2020 2:05 PM SYSTEM DEVELOPER ASSOCIATE MANAGER Patient's medications and allergies were reviewed with the patient today. Patient was instructed tocontact primary care physician or ordering provider with any questions regarding medications. EM DEVELOPER ASSOCIATE MANAGER documented in this encounter Progress Notes * Mario Iyer MD - 04/10/2020 2:06 PM CST Jules Mitchell is a 74 year old male who is here for a postoperative visit following PROCEDURE PERFORMED: 1. Right upper arm arteriovenous graft. 2. Ligation of right upper arm AV fistula The patient is referred by Naveen Blackman MD. PCP is Kwame Berg MD. Incision: Improved, minimal drainage, no erythema Thrill/Bruit: Present Plan: Will begin using the access next week, and will schedule fistulogram/cath pull when using well EM DEVELOPER ASSOCIATE MANAGER documented in this encounter Plan of Treatment Upcoming Encounters Date Type Department Care Team (Late st Contact Info) Description 08/23/2024 1:00 PM CDT Appointment [facility] Vascular Services [address] [place] [address], [address] [place] [address] [place] [id number] [place] [address] [address] [place] [address] [place]sm[place] [id number] [place] [address] [address] [place] [address] Pending Results Name Type Priority Associated Diagnoses Date /Time IR CENTRAL LINE REMOVAL Imaging Routine ESRD (end stage renal disease) ([facility]) 05/03/2020 12:48 PM SYSTEM DEVELOPER ASSOCIATE MANAGER Scheduled Orders Name Type Priority Associated Diagnoses Orde r Schedule IR CENTRAL LINE REMOVAL Imaging Routine ESRD (end stage renal disease) ([facility]) 1 Occurrences starting 04/10/2020 until 04/10/2021 documented as of this encounter Results * IR ANGIO AV SHUNT IMAGING (05/03/2020 12:48 PM SYSTEM DEVELOPER ASSOCIATE MANAGER) Anatomical Region Laterality Modality Lower Extremity, Upper Extremity, Chest X-Ray Angiography Narrative 05/03/2020 1:09 PM SYSTEM DEVELOPER ASSOCIATE MANAGER Tyshawn Hleler MD ? 05/03/2020 ??3:04 PM Surgeon: Tyshawn Heller MD Pre-Procedure diagnosis: ESRD Time out and final pre-procedure assessment completed immediately prior to start of procedure. Medications reviewed. Post-Procedure diagnosis: Same Anesthesia: Local, Fentanyl Technical Procedure Performed: ??1) ultrasound guidance for needle placement 2) were upper extremity AV graft injection with angioplasty 3) central venous angioplasty 4) tunneled right IJ hemodialysis catheter removal Findings: ??After informed consent was obtained the patient was placed supine on the angiogram table and the right upper extremity and chest were prepped and draped in the usual sterile fashion. ??Ultrasound evaluation of the graft demonstrated patency and adequacy for access. ??Anesthesia just beyond the arterial anastomosis was obtained with lidocaine. ??Under direct ultrasound guidance the graft was punctured with a micropuncture needle and antegrade manner followed by a 0.018 wire. ??Appropriate ultrasound images were captured. ??The needle was then exchanged for a transitional sheath. Contrast injection demonstrated patency of the graft. ??However high-grade stenosis at the venous anastomosis was noted. ?? Otherwise the draining venous structures within the right upper extremity were patent. ??Collateral vessels are noted within the upper chest. ??There is occlusion of the SVC along the tunneled hemodialysis catheter. The transitional sheath was then exchanged for a 7 Anguillan short dialysis sheath. ??Angioplasty of the venous anastomosis was performed using a 6 mm and then 7 mm Conquest balloon. ??After the inflations repeat contrast injection demonstrated significant improvement with mild rebound. ??Attempts were then made to gain access through the occluded SVC with a glidewire and Kumpe the catheter which were unsuccessful. Subsequently the tunneled right IJ hemodialysis catheter was further prepped sterilely. ??Anesthesia on the cuff was obtained lidocaine. ??The cuff was freed of scar tissue with dissection and the catheter was removed. ??0.035 Bentson wires were passed through each lumen and into the central venous structures. ?? Angioplasty throughout the SVC was then performed using a 12 mm diameter balloon. ??Significant wasting was noted at the origin of the SVC which effaced upon complete inflation of the 12 mm balloon. ??Repeat contrast injection through the 7 Anguillan sheath in the AV graft demonstrated respiration of patency through the occluded SVC with no significant residual stenosis or thrombus. Hemostasis along the right chest and supraclavicular region was obtained with manual compression. ??A 7 Anguillan sheath was also removed and hemostasis obtained with manual compression. ??The patient tolerated the procedure well. 40 cc of Isovue and 3.5 min of fluoroscopy was used. ??50 mcg of fentanyl was given during the procedure IV. Disposition: Home Status: Stable Drain or Pack: None Additional information/Complications: None Estimated blood loss: negligible Specimen(s) removed: No Specimen During the post-procedure debrief all intra-procedure verbal order medications ordered by the proceduralist were reviewed and authenticated. Mario Iyer MD IR ORDERABLES documented in this encounter Visit Diagnoses Diagnosis ESRD (end stage renal disease) (HCC)- Primary End stage renal disease ESRD (end stage renal disease) (HCC) End stage renal disease documented in this encounter Care Teams Hadoop Application Developer Relationship Specialty Start Date End Date Kwame Berg MD PCP - General Internal Medicine 01/19/19 [place] [address] [address] Orthopedic Surgery Orthopedic Surgery 10/13/19 documented as of this encounter
--- OUTSIDE RECORDS SUMMARY | 2024-04-25 21:19 | XMS_ITS | Encounter Summary ---
Author Organization [facility] Address [address] [facility] [place] [address] Care Team Providers Care Chemical Engraver Name Role Phone Kwame Berg MD Primary Care Provider [phone] Dylon Agudelo MD Unavailable [phone] Reason for Visit * Reason Onset Date Comments Scheduling 03/27/2020 Encounter Details Date Type Department Care Team (Late st Contact Info) Description 03/27/2020 Telephone [facility] Orthopedics [address] [address] [place] [address] [address] Scheduling Social History Tobacco Use Types Packs/Day Years [...] have Coronavirus / COVID-19? No / Unsure 03/27/2020 12:06 PM WELLNESS AMBASSADOR documented as of this encounter Functional Status [...] encounter Miscellaneous Notes * Telephone Encounter - Dominique Botello - 03/27/2020 2:08 PM CST Left message with Wild that pt appointment for 04/14/[address] was [address] Agudelo being out of the office and for him to call back to reschedule. NESS AMBASSADOR documented in this encounter Plan of Treatment Upcoming Encounters Date Type Department Care Team (Late st Contact Info) Description 08/23/2024 1:00 PM CDT Appointment [facility] Health Vascular Services [address] [facility] [address] [place] [address] [place] [address] [facility] [address] [place] [address] [place] [address] [facility] [address] [place] [address] documented as of this encounter Visit Diagnoses Not on filedocumented in this encounter Care Teams Chemical Engraver Relationship Specialty Start Date End Date Kwame Berg MD PCP - General Internal Medicine 01/19/19 [place] [address] [facility] [address] [place] [address] Orthopedic Surgery Orthopedic Surgery 10/13/19 documented as of this encounter
--- OUTSIDE RECORDS SUMMARY | 2024-04-25 21:19 | XMS_ITS | Encounter Summary ---
Author Organization [facility] Address [address] [facility] [place] [address] Care Team Providers Care Student Support Counselor Name Role Phone Kwame Berg MD Primary Care Provider [phone] Dylon Agudelo MD Unavailable [phone] Reason for Referral * Radiology Services (Routine) - Closed Specialty Diagnoses / Procedures Referred By Vivienne burrell Referred To Contact Diagnoses ESRD (end stage renal disease) (HCC) Procedures IR ANGIO AV SHUNT IMAGING Haja Marrufo MD [address] [facility] [place] [address] Referral ID Status Reason Start Date Expiration Date Visits Re quested Visits Authorized [id number] Closed 01/16/2022 01/16/2023 1 1 * Radiology Services (Routine) - Closed Specialty Diagnoses / Procedures Referred By Vivienne burrell Referred To Contact Diagnoses ESRD (end stage renal disease) (HCC) Procedures IR ANGIO AV SHUNT IMAGING Haja Marrufo MD [address] [facility] [place] [address] Referral ID Status Reason Start Date Expiration Date Visits Re quested Visits Authorized [id number] Closed 01/16/2022 01/16/2023 1 1 Reason for Visit * Radiology Services (Routine) - Closed Specialty Diagnoses / Procedures Referred By Vivienne burrell Referred To Contact Diagnoses Encounter regarding vascular access for dialysis for end-stage renal disease (HCC) Procedures IR ANGIO [place] [address] [address] Referral ID Status Reason Start Date Expiration Date Visits Re quested Visits Authorized [id number] Closed 05/25/2021 05/25/2022 1 1 Encounter Details Date Type Department Care Team (Latest Contact Info) Description 01/16/2022 9:43 AM CDT - 01/16/2022 11:59 PM CDT Hospital Encounter [facility] Health Vascular Services [address] [facility], [address] [place] [address] Tyshawn Heller MD [address] [place] [address] [place] [address] [facility] [address] [place] [address] Haja Marrufo MD Discharge Disposition: Home or [...] Sign Reading Time Taken Comments Blood Pressure 95/50 01/16/2022 12:40 PM CDT Pulse 66 01/16/2022 12:40 PM CDT Temperature 36.6 ??C (97.8 ??F) 01/16/2022 10:12 AM C DT Respiratory Rate 10 01/16/2022 12:40 PM CDT Oxygen Saturation 98% 01/16/2022 12:40 PM CDT Inhaled Oxygen Concentration - - Weight 55.3 kg (122 lb) 01/16/2022 10:12 AM CDT Height 157.5 cm (5' 2) 01/16/2022 10:12 AM CDT Body Mass Index 22.31 01/16/2022 10:12 AM CDT documented in this encounter Functional [...] same time every day after a meal. folic acid (FOLVITE) 1 MG tablet 1 mg by Enteral route once daily 05/13/2022 lanthanum (Fosrenol) 500 MG chew tablet 1 [...] mouth once daily as needed 08/09/2019 08/04/2023 polyethylene glycol 3350 (Miralax) 17 GM/SCOOP powder MIX AND DRINK 1 CAPFUL BY MOUTH EVERY DAY 12/14/2021 05/13/2022 sodium bicarbonate 325 MG tablet Take 1 (one) tablet by mouth once daily 07/05/2019 10/21/2022 vitamin D, ergocalciferol, (DRISDOL) 1.25 MG (00128 UT) capsule Take 1 (one) capsule by mouth every 30 days 10/18/2022 documented as of this encounter Progress Notes * Shikha Cyr RN - 01/16/2022 10:18 AM CDT Patient has right upper arm access, pulsatile throughout. documented in this encounter H&P Notes * Haja Marrufo MD - 01/16/2022 12:01 PM CDT Chief Complaint ESRD History and Physical Jules Mitchell is a 76 year old male. ESRD, pulsatile fistula Past Medical History: Diagnosis Date ??? Cancer 2000 pt unsure of type of cancer ??? Chronic kidney disease ??? ESRD (end stage renal disease) [facility] 01/25/21 ??? High blood pressure ??? Pure [...] ??? vitamin D, ergocalciferol, (DRISDOL) 1.25 MG (80725 UT) capsule Take 50,000 Units by mouth every 30 days (Patient not taking: No sig reported) No current facility-administered medications on file prior to encounter. Social History Tobacco Use ??? Smoking status: Former Smoker Quit date: 10/12/2012 Years since quittin.2 ??? Smokeless tobacco: Never Used Vaping Use [...] Procedure Notes * Haja Marrufo MD - 01/16/2022 12:36 PM CDTAssociated Order(s): IR ANGIO AV SHUNT IMAGING Date: 01/16/22 ?? Surgeon: Haja Marrufo MD ?? Line Construction Engineer: Staff ?? Pre-Procedure diagnosis: ESRD ?? Time out and final pre-procedure assessment completed immediately prior to start of procedure. ?? Medications reviewed. ?? Post-Procedure diagnosis: Same ?? Anesthesia: Local and IV Sedation ?? Technical Procedure Performed: Right arm graft injection Peripheral Venoplasty Central Venoplasty Conscious/moderate sedation ?? Findings: Prior to beginning the procedure, informed [...] access was upsized using a transitional 5 Greek micropuncture dilator sheath, through which a graft [...] of the arterial anastomosis and arterial inflow. ?? A guidewire was advanced centrally and the access upsized using a 7 Fr vascular sheath. A 8 mm x [...] inflation was performed. Repeat contrast injection demonstrated near complete resolution of the stenosis, with decreased collateral filling. ?? The sheath was removed and hemostasis was achieved with manual compression. Patient tolerated the procedure well; no immediate complication. ?? 20 mL Isovue contrast media administered 7.0 mGy dose ?? Moderate IV conscious sedation was administered by Dr. Marrufo using 0.5 mg of Versed and 100 mcg ofFentanyl. The patient's airway and condition was evaluated immediately prior to sedation and/or analgesia. The patient was independently monitored by a registered nurse for 13 minutes using automatedblood pressure, EKG and pulse oximetry. There were no complications. ? Disposition: Home ?? Status: Stable ?? Drain or Pack: None ?? Additional information/Complications: None ?? Estimated blood loss: negligible ?? Specimen(s) removed: No Specimen ?? During the post-procedure debrief all intra-procedure verbal order medications ordered by the proceduralist were reviewed and authenticated. ?? Operative note was dictated: Yes documented in this encounter Plan of Treatment Upcoming Encounters Date Type Department Care Team (Late st Contact Info) Description 08/23/2024 1:00 PM CDT Appointment [facility] Vascular Services [address] [place] [address], [address] [address] [place] [address] [facility] [address] [place] [address] [place] [address] [facility] [address] [place] [address] documented as of this encounter Procedures Procedure Name Priority Date/Time Associated Diagnosis Comments CARDIAC RHYTHM STRIP ORDER 01/22/2022 8:27 AM CDT IR ANGIO AV SHUNT IMAGING Routine 01/16/2022 12:31 PM CDT ESRD (end stage renal disease) (HCC) documented in this encounter Results * CARDIAC RHYTHM STRIP ORDER (01/22/2022 8:27 AM CDT) Narrative 01/22/2022 8:27 AM CDT Ordered by an unspecified provider. Scanned Document CARDIAC SERVICES ORD ERABLES * IR ANGIO AV SHUNT IMAGING (01/16/2022 12:31 PM CDT) Anatomical Region Laterality Modality Lower Extremity, Upper Extremity, Chest X-Ray Angiography Narrative 01/16/2022 12:36 PM CDT Haja Marrufo MD ? 01/16/2022 12:38 PM Date: ??01/16/22 ?? Surgeon: Haja Marrufo MD ?? Line Construction Engineer: Staff ?? Pre-Procedure diagnosis: ESRD ?? Time out and final pre-procedure assessment completed immediately prior to start of procedure. ?? Medications reviewed. ?? Post-Procedure diagnosis: Same ?? Anesthesia: Local and IV Sedation ?? Technical Procedure Performed: Right arm graft injection Peripheral Venoplasty Central Venoplasty Conscious/moderate sedation ?? Findings: Prior to beginning the procedure, informed [...] access was upsized using a transitional 5 Greek micropuncture dilator sheath, through which a graft [...] of the arterial anastomosis and arterial inflow. ?? A guidewire was advanced centrally and the access upsized using a 7 Fr vascular sheath. ??A 8 mm x [...] inflation was performed. ??Repeat contrast injection demonstrated near complete resolution of the stenosis, with decreased collateral filling. ? The sheath was removed and hemostasis was achieved with manual compression. ??Patient tolerated the procedure well; no immediate complication. ?? 20 mL Isovue contrast media administered 7.0 mGy dose ?? Moderate IV conscious sedation was administered by Dr. Marrufo using 0.5 mg of Versed and 100 mcg of Fentanyl. ??The patient's airway and condition was evaluated immediately prior to sedation and/or analgesia. ??The patient was independently monitored by a registered nurse for 13 minutes using automated blood pressure, EKG and pulse oximetry. ??There were no complications. ? Disposition: Home ?? Status: Stable ?? Drain or Pack: None ?? Additional information/Complications: None ?? Estimated blood loss: negligible ?? Specimen(s) removed: No Specimen ?? During the post-procedure debrief all intra-procedure verbal order medications ordered by the proceduralist were reviewed and authenticated. ?? Operative note was dictated: Yes Haja Marrufo [...] 50 mL/hr, Intravenous, INTRA-PROCEDURE CONTINUOUS, Starting on Fri01/16/22 at 1215, Until Susan 01/17/22 at 0141, Intra-procedure (IR) $ New Bag/Syringe 01/16/2022 12:35 PM CDT 50 mL 50 mL/hr fentaNYL (PF) (Sublimaze) injection 25-50 mcg 25-50 mcg, Intravenous, INTRA-PROCEDURE MULTIPLE, Starting on Fri01/16/22 at 1209, Until Susan 01/17/22 at 0141, Administer every 5 minutes during procedure as [...] in the MAR., Intra-procedure (IR) $ Given 01/16/2022 12:23 PM CDT 100 mcg fentaNYL (Sublimaze) injection 0.05 mg/mL ADS Med 1 dose, Starting on Fri01/16/22 at 1210, Until Fri01/16/22 at 1223, Created by cabinet override Patient preference for [...] % contrast Intravenous, INTRA-PROCEDURE MULTIPLE, Starting on Fri01/16/22 at 1209, Until Susan 01/17/22 at 0141, Intra/Post-procedure $ Given - Contrast 01/16/2022 12:36 PM CDT 20 mL lidocaine (Xylocaine PF) 1% injection ADS Med 1 dose, Starting on Fri01/16/22 at 1202, Until Fri01/16/22 at 1223, Created by cabinet override lidocaine PF (Xylocaine MPF) 1 % injection Infiltration, INTRA-PROCEDURE MULTIPLE, Starting on Fri01/16/22 at 1209, Until Susan 01/17/22 at 0141, Intra-procedure (IR) $ Given 01/16/2022 12:23 PM CDT 10 mg midazolam (Versed) 1 mg/mL injection ADS Med 1 dose, Starting on Fri01/16/22 at 1210, Until Fri01/16/22 at 1223, Created by cabinet override midazolam (Versed) injection 0.5-2 mg 0.5-2 mg, Intravenous, INTRA-PROCEDURE MULTIPLE, Starting on Fri01/16/22 at 1209, Until Susan 01/17/22 at 0141, Administer every 5 minutes during procedure as needed for sedation. Dose to be determined by physician., Intra-procedure (IR) $ Given 01/16/2022 12:23 PM CDT 0.5 mg documented in this encounter Care Teams Student Support Counselor Relationship Specialty Start Date End Date Kwame Berg MD PCP - General Internal Medicine 01/19/19 [place] [id number] [address] Orthopedic Surgery Orthopedic Surgery 10/13/19 documented as of this encounter
--- OUTSIDE RECORDS SUMMARY | 2024-04-25 21:19 | XMS_ITS | Encounter Summary ---
Author Organization [facility] Address [address] [facility] [facility] [place] [address] Care Team Providers Care Technical Testing Engineer Name Role Phone Kwame Berg MD Primary Care Provider Dylon Agudelo MD Unavailable [phone] Encounter Details Date Type Department Care Team (Latest Contact Info) Description 07/28/2020 Travel Social History Tobacco Use Types Packs/Day [...] have Coronavirus / COVID-19? No / Unsure 07/28/2020 9:07 AM CDT documented as of this encounter [...] Info) Description 08/23/2024 1:00 PM CDT Appointment [facility] Health Vascular Services [address] [facility], [address] [place] [address] [place] [address] [facility] [address] [place] [address] [place] [address] [facility] [address] [place] [address] documented as of this encounter Visit Diagnoses Not on filedocumented in this encounter Care Teams Technical Testing Engineer Relationship Specialty Start Date End Date Kwame Berg MD PCP - General Internal Medicine 01/19/19 [place] [address] [facility] [address] [place] [address] Orthopedic Surgery Orthopedic Surgery 10/13/19 documented as of this encounter
--- OUTSIDE RECORDS SUMMARY | 2024-04-25 21:19 | XMS_ITS | Encounter Summary ---
Author Organization [facility] Address [address] [place] [address] Care Team Providers Care Canadian Bacon Tier Name Role Phone Kwame Berg MD Primary Care Provider Dylon Agudelo MD Unavailable Reason for Referral * Radiology Services (Routine) - Closed Specialty Diagnoses / Procedures Referred By Duranac t Referred To Contact Vascular Lab Diagnoses ESRD (end stage renal disease) (HCC) Procedures VAS BILAT [place]PING [place] [address] [facility] [address] [place] [phone] [facility] [address] [place] [address], [address] [address] Referral ID Status Reason Start Date Expiration Date Visits Re quested Visits Authorized [id number] Closed 05/27/2022 05/27/2023 1 1 TLE OPERATOR Reason for Visit * Radiology Services (Routine) - Closed Specialty Diagnoses / Procedures Referred By Vivienne burrell Referred To Contact Vascular Lab Diagnoses ESRD (end stage renal disease) (HCC) Procedures VAS BILAT MAPPING [place] [address] [address] [place] [phone] [facility] [address] [place] [address], [address] [address] Referral ID Status Reason Start Date Expiration Date Visits Re quested Visits Authorized [id number] Closed 05/27/2022 05/27/2023 1 1 Encounter Details Date Type Department Care Team (Latest Contact Info) Description 05/27/2022 11:00 AM SHUTTLE OPERATOR - 05/27/2022 11:59 PM SHUTTLE OPERATOR Hospital Encounter [facility] Health Vascular Services [address] [facility], [address] [place] [address] [place] [address] [facility] [address] [place] [phone] Discharge Disposition: Home or Self Care Social [...] Coronavirus/COVID-19? No / Unsure 05/17/2022 8:08 AM SHUTTLE OPERATOR documented as of this encounter Functional Status [...] 10/21/2022 vitamin D, ergocalciferol, (DRISDOL) 1.25 MG (09264 UT) capsule Take 1 (one) capsule by mouth every 30 days 10/18/2022 documented as of this encounter Plan of Treatment Upcoming Encounters Date Type Department Care Team (Late st Contact Info) Description 08/23/2024 1:00 PM CDT Appointment [facility] Health Vascular Services [address] [place] [address], [facility] [address] [place] [address] [place] [id number] [phone] [place] [address] [address] documented as of this encounter Procedures Procedure Name Priority Date/Time Associated Diagnosis Comments VAS BILAT MAPPING FOR HEMODIALYSIS Routine 05/27/2022 2:39 PM SHUTTLE OPERATOR ESRD (end stage renal disease) (HCC) documented in this encounter Results * VAS BILAT MAPPING FOR HEMODIALYSIS (05/27/2022 2:39 PM SHUTTLE OPERATOR) Anatomical Region Laterality Modality Lower Extremity, Upper Extremity Ultrasound 05/27/2022 2:15 PM SHUTTLE OPERATOR Narrative Procedure Note Mario Iyer MD - 05/27/2022 [facility] [address] [facility], [address] [place] [address] Vessel Mapping for Hemodialysis Report Pat.Name: VALERY DALTONANCA Pat.ID: [id number] .Date: 05/27/2022 Exam Time: 2:15:00 PM Study Type:Vessel Mapping for Hemodialysis Age: 2 1945,76Y Sex: MALE Sonogrphr: [facility] [place] RVT Pat. Stat.:Outpatient CPT - 4: 48872 Reason for Study: End Stage Renal Disease Procedures: Vessel Mapping for Hemodialysis Race: 2 Visit ID: [id number] ++++++++++++++++++++++++++++++++++++ SUMMARY: ++++++++++++++++++++++++++++++++++++ Patent left arm veins [...] Mario Iyer MD VASCULAR LAB ORDER SANDER documented in this encounter Visit Diagnoses Diagnosis ESRD (end stage renal disease) (HCC) End stage renal disease documented in this encounter Care Teams Canadian Bacon Tier Relationship Specialty Start Date End Date Kwame Berg MD PCP - General Internal Medicine 01/19/19 [place] [address] [phone] Orthopedic Surgery Orthopedic Surgery 10/13/19 documented as of this encounter
--- OUTSIDE RECORDS SUMMARY | 2024-04-25 21:19 | XMS_ITS | Encounter Summary ---
Author Organization [facility] Address [address] [facility] [place] [address] Care Team Providers Care Slip Bridge Operator Name Role Phone Kwame Berg MD Primary Care Provider [phone] Dylon Agudelo MD Unavailable [phone] Reason for Visit * Auth/Cert Specialty Diagnoses / Procedures Referred By Vivienne t Referred To Contact Procedures ARTERIOVENOUS FISTULA TRANSPOSITION / SUPERFICIALIZATION Referral ID Status Reason Start Date Expiration Date Visits Re quested Visits Authorized [id number] 1 1 Encounter Details Date Type Department Care Team (Late st Contact Info) Description 03/15/2020 1:15 PM MASTER POLICE DETECTIVE - 03/15/2020 3:12 PM MASTER POLICE DETECTIVE Surgery [facility] - Perioperative Surgery [address] [place] [address] [place] [address] [facility] [address] [place] [phone] RIGHT ARM DIALYSIS GRAFT Surgery Details Date/Time Status Location OR Service Patient Class Case Class Case Type Trauma Case? 03/15/2020 1:15 PM Posted [facility] MAIN OR OR 05 Vascular Surgery Day Care Elective > 5 days Panel 1 Procedure LRB Anes Op Region Wound Class Comments RIGHT ARM DIALYSIS GRAFT Right MAC Arm Clean Surgeon Surgeon Role Service [...] COVID-19? No / Unsure 03/03/2020 10:05 AM MASTER POLICE DETECTIVE documented as of this encounter Last Filed Vital Signs Vital Sign Reading Time Taken Comments Blood Pressure 147/69 03/15/2020 12:40 PM MASTER POLICE DETECTIVE Pulse 77 03/15/2020 12:40 PM MASTER POLICE DETECTIVE Temperature 36.7 ??C (98.1 ??F) 03/15/2020 12:[address] Respiratory Rate 18 03/15/2020 12:40 PM MASTER POLICE DETECTIVE Oxygen Saturation 100% 03/15/2020 12:40 PM MASTER POLICE DETECTIVE Inhaled Oxygen Concentration - - Weight 60.6 kg (133 lb 9.6 oz) 03/15/2020 12:35 PM MASTER POLICE DETECTIVE Height 157.5 cm (5' 2) 03/15/2020 12:35 PM MASTER POLICE DETECTIVE Body Mass Index 24.44 03/15/2020 12:35 PM MASTER POLICE DETECTIVE documented in this encounter Functional Status Functional [...] UNIT/ML injectionIndications :ESRD (end stage renal disease) ([facility]) Inject 4,000 Units subcutaneously every 7 days 01/20/2020 09/13/2020 HYDROcodone-acetamin ophen (NORCO) 10-325 MG tablet Take 1 tablet by mouth every 6 hours as needed for Pain 30 tablet 03/15/2020 06/12/2020 lisinopril (PRINIVIL;ZESTRIL) 5 MG tablet Take 5 mg by mouth once daily 08/15/2019 09/13/2020 polyethylene glycol 3350 (MIRALAX) 17 g packet Take 17 (seventeen) g by mouth once daily as needed 08/09/2019 08/04/2023 sodium bicarbonate 325 MG tablet Take 1 (one) tablet by mouth once daily 07/05/2019 10/21/2022 documented as of this encounter H&P Notes * Leyla Howard - 03/14/2020 8:30 AM CST Surgical H&P Chief Complaint: ESRD, deep fistula ?? History and Physical: Jules Mitchell is a 74 year old male. The patient is referred by Naveen Blackman MD. PCP is Kwame Berg MD. Patient has a right arm deep brachial vein dialysis fistula. The fistula has matured nicely, however is deep. The patient denies shortness of breath, anorexia or fatigue. Will plan for right arm dialysis fistula transposition, possible right arm dialysis graft. ?? Past Medical History Past Medical History: Diagnosis Date ??? Cancer 2000 ?? patient/family unsure of type ??? ESRD (end stage renal disease) ? Evelyn mcmahon -indra,,[facility] 11/2419 ??? ESRD on dialysis ? High blood pressure ? Past Surgical History Past Surgical History: Procedure Laterality Date ??? OTHER SURGERY ? Testicular surgery per nephew but not positive? VASCULAR PROCEDURE/SURGERY ?? 10/20/2019 ?? RIGHT UPPER ARM ARTERIOVENOUS FISTULA ? Medications Outpatient Medications Marked as Taking for the 12/20/19 encounter (Office Visit) with Mario Iyer MD Medication Sig Dispense Refill ??? allopurinol (ZYLOPRIM) 100 MG tablet Take 100 mg by mouth once daily ? amLODIPine (NORVASC) 5 MG tablet Take 5 mg by mouth once daily ? atorvastatin (LIPITOR) 20 MG tablet Take 20 mg by mouth at bedtime ?? 0 ??? docusate sodium (COLACE) 100 MG capsule Take 100 mg by mouth once daily as needed ? folic acid (FOLVITE) 1 MG tablet Take 1 mg by mouth once daily ? furosemide (LASIX) 80 MG tablet Take 80 mg by mouth 2 times daily ? HYDROcodone-acetaminophen (NORCO) 5-325 MG tablet Take 1 tablet by mouth every 6 hours as needed for Pain 30 tablet 0 ??? lisinopril (PRINIVIL;ZESTRIL) 5 MG tablet Take 5 mg by mouth once daily ? polyethylene glycol 3350 (MIRALAX) 17 g packet Take 17 g by mouth once daily as needed ? rOPINIRole (REQUIP) 0.5 MG tablet Take 0.5 mg by mouth Three times a week ? sevelamer carbonate (RENVELA) 800 MG Take 800 mg by mouth 3 times daily with meals ? sodium bicarbonate 325 MG tablet Take 325 mg by mouth once daily ? tamsulosin (FLOMAX) 0.4 MG capsule Take 0.4 mg by mouth at bedtime At the same time every day after a meal. ? traMADol (ULTRAM) 50 MG tablet Take 1 tablet by mouth 2 times daily as needed for Pain 60 tablet 0 ? No Known Allergies ?? Family History Family History Problem Relation Name Age of Onset ??? Hypertension Mother ? Hypertension Sister ? Diabetes - Type 2 Sister ? Social History ?? Tobacco Use ??? Smoking status: Former Smoker ? Last attempt to quit: 10/12/2012 ? Years since quittin.1 ??? Smokeless tobacco: Never Used Substance Use [...] Musculoskeletal: All four extremities are warm, patent right arm fistula. Neurologic: Intact. ?? Impression/Plan: ESRD. Will plan for right arm dialysis fistula transposition, possible right arm dialysis graft. I have discussed the risks, benefits [...] implications of this infection. See consent form. ?? Past Medical History Past Medical History: Diagnosis Date ??? Cancer 2000 ?? patient/family unsure of type ??? ESRD (end stage renal disease) ? Evelyn mcmahon indra,[facility] 11/2419 ??? ESRD on dialysis ? High blood pressure ? ER POLICE DETECTIVE documented in this encounter OR Notes * OR Surgeon - Mario Iyer MD - 03/15/2020 3:09 PM CST [facility] OPERATIVE REPORT PATIENT: Jules Mitchell MR#: [id number] ADMIT DATE: 03/15/2020 11:57 AM [facility] # [id number] DATE OF SURGERY: 03/15/2020 : 1945 PHYSICIAN: Mario Iyer MD PREOPERATIVE DIAGNOSIS: End stage renal disease. POSTOPERATIVE DIAGNOSIS: End stage renal disease. PROCEDURE PERFORMED: 1. Right upper arm arteriovenous graft. 2. Ligation of right upper arm AV fistula SURGEON: Mario Iyer MD ANESTHESIA: 1% lidocaine [...] anesthesiologist. The patient tolerated this well. The right upper arm AV fistula was cut down upon dissected free. The fistula was too small was just not adequate for transposition. For this reason we ligated the fistula with 2 0 silk free ties and then decided to convert to a right upper arm AV graft. The right brachial artery just above the antecubital fossa was dissected out as was the basilic vein in the axilla. The Impra tunneler was used to tunnel the 4-7 mm [place]-Maximiliano graft subcutaneously under the skin. The patient was given 3000 units of heparin intravenously. We also used heparinized saline on the field. End-to-side anastomoses were performed both proximally and distally with 6-0 Prolene in a simple running fashion.Once completed, the graft was flushed and then opened, and there was excellent flow in the outflow vein. Incisions were closed with 2-0 Vicryl in a simple interrupted fashion in the subcutaneous tissue and then 2-0 Nylon in a simple running fashion on the skin. The patient tolerated the procedure well and was found to be stable in the recovery room postoperatively. Sponge and instrument counts were correct x2. Preoperatively, the patient and family understood the risks of procedure to be bleeding, infection, pain, poor wound healing, decreased circulation to the right arm, and the possible need for further dialysis access surgery. With all this in mind, they wanted to go ahead with today's surgery. Mario Iyer MD ER POLICE DETECTIVE documented in this encounter Plan of Treatment Upcoming Encounters Date Type Department Care Team (Late st Contact Info) Description 08/23/2024 1:00 PM CDT Appointment [facility] Vascular Services [address] [facility], [address] [place], [place] [phone] [place] [address] [facility] [address] [place] [phone] [place] [address] [facility] [address] [place] [address] documented as of this encounter Procedures Procedure Name Priority Date/Time Associated Diagnosis Comments ARTERIOVENOUS FISTULA TRANSPOSITION / SUPERFICIALIZATION 03/15/2020 1:27 PM MASTER POLICE DETECTIVE BASIC METABOLIC PANEL (CALCIUM TOTAL) STAT 03/15/2020 12:23 PM MASTER POLICE DETECTIVE Preop examination documented in this encounter Results * (ABNORMAL) BASIC METABOLIC PANEL (CALCIUM TOTAL) (03/15/2020 12:23 PM MASTER POLICE DETECTIVE) Glucose 86 70 - 105 mg/dL 03/15/2020 12:51 PM MASTER POLICE DETECTIVE [facility] Sodium 143 136 - 145 mmol/L 03/15/2020 12:51 PM MASTER POLICE DETECTIVE [facility] Potassium 4.3 3.5 - 5.1 mmol/L 03/15/2020 12:51 PM MASTER POLICE DETECTIVE [facility] Chloride 106 98 - 107 mmol/L 03/15/2020 12:51 PM MASTER POLICE DETECTIVE [facility] CO2 23 23 - 31 mmol/L 03/15/2020 12:51 PM MASTER POLICE DETECTIVE [facility] Calcium 10.4 8.4 - 10.4 mg/dL 03/15/2020 12:51 PM MASTER POLICE DETECTIVE [facility] Anion Gap 14 8 - 18 mmol/L 03/15/2020 12:51 PM MASTER POLICE DETECTIVE [facility] Comment:Attention clinician: Reference Range change. BUN 29(H) 8.4 - 25.7 mg/dL 03/15/2020 12:51 PM MASTER POLICE DETECTIVE [facility] Creatinine 6.44(H) 0.72 - 1.25 mg/dL 03/15/2020 12:51 PM MASTER POLICE DETECTIVE [facility] eGFR by MDRD 8 mL/min/1.7 3m2 03/15/2020 12:51 PM MASTER POLICE DETECTIVE [facility] eGFR by MDRD 10 mL/min/1.7 3m2 03/15/2020 12:51 PM MASTER POLICE DETECTIVE [facility] Blood BLOOD SPECIMEN / Unknown Venipuncture / Unknown 03/15/2020 12:23 PM MASTER POLICE DETECTIVE 03/15/2020 12:34 PM MASTER POLICE DETECTIVE Megan Ca DO LAB - CHEMISTRY DELFINO VIDAL [facility] [address] [place] [address] documented in this encounter Visit [...] Pre-op $ New Bag/Syringe 03/15/2020 1:38 PM MASTER POLICE DETECTIVE heparinized saline 2 units/ml infusion CONTINUOUS PRN, Starting on Fri03/15/20 at 1411, Until Fri03/15/20 at 1714, Intra-op $ New Bag/Syringe 03/15/2020 2:11 PM MASTER POLICE DETECTIVE 1,000 mL Operative Site lidocaine 1% - EPINEPHrine 1:100,000 injection PRN, Starting on Fri03/15/20 at 1504, Until Fri03/15/20 at 1714, Intra-op $ Given 03/15/2020 3:04 PM MASTER POLICE DETECTIVE 40 mL Operative Site protamine injection PRN, Starting on Fri03/15/20 at 1450, Until Fri03/15/20 at 1714, Intra-op $ Given 03/15/2020 2:50 PM MASTER POLICE DETECTIVE 50 mg Left Arm documented in this encounter Active and Recently Administered Medications Times are shown in MASTER POLICE DETECTIVE. Scheduled Medication Order 03/13/2020 03/14/2020 03/15/2020 ceFAZolin (ANCEF) 2,000 mg in 50 ml IVPB (COMPLETED) 2,000 mg (2 g), at 100 mL/hr, Intravenous, ONCE, 1 dose, On Fri03/15/20 at 1230, Administer 30 minutes prior to surgical incision., Indication for anti-infective therapy: Surgical prophylaxis, Pre-op 1338 ($ Given - Prov ider: ECHO Kim) lidocaine PF (XYLOCAINE MPF) 1 % injection 0.5 mL 0.5 mL, Infiltration, PRE-OP ONCE, 1 dose, On Fri03/15/20 at 1230, May be used (0.5 ml locally to anesthetize prior to insertion). For patients not allergic to local anesthetics., Pre-op 1230 (Due) Continuous Medication Order 03/13/2020 03/14/2020 03/15/2020 0.9% NaCl infusion at 20 mL/hr, Intravenous, PRE-OP CONTINUOUS, Starting on Fri03/15/20 at 1230, Until Fri03/15/20 at 1714, For Dialysis or Chronic Renal Failure patients. Use 500 ml bag and micro drip tubing, Pre-op 1338 ($ New Bag/Syri nge - Provider: ECHO Kim)1508 (Stopped - Provider: ECHO Kim) PRN Medication Order 03/13/2020 03/14/2020 03/15/2020 heparinized saline 2 units/ml infusion CONTINUOUS PRN, Starting on Fri03/15/20 at 1411, Until Fri03/15/20 at 1714, Intra-op 1411 ($ New Bag/Syri nge - Provider: Mario Iyer MD) lidocaine 1% - EPINEPHrine 1:100,000 injection PRN, Starting on Fri03/15/20 at 1504, Until Fri03/15/20 at 1714, Intra-op 1504 ($ Given - Prov ider: Mario Iyer MD) protamine injection PRN, Starting on Fri03/15/20 at 1450, Until Fri03/15/20 at 1714, Intra-op 1450 ($ Given - Prov ider: Mario Iyer MD - Comment: anesthesia administered the protamine 50mg/5ml injection at 14:51 intravenously on patient's IV line on the left arm) documented in this encounter Care Teams Slip Bridge Operator Relationship Specialty Start Date End Date Kwame Berg MD PCP - General Internal Medicine 01/19/19 [place] [address] [phone] Orthopedic Surgery Orthopedic Surgery 10/13/19 documented as of this encounter
--- OUTSIDE RECORDS SUMMARY | 2024-04-25 21:19 | XMS_ITS | Encounter Summary ---
Author Organization [facility] Address [address] [facility] [place] [address] Care Team Providers Care Manager Operations Name Role Phone Kwame Berg MD Primary Care Provider [phone] Dylon Agudelo MD Unavailable [phone] Reason for Referral * Radiology Services (Routine) - Closed Specialty Diagnoses / Procedures Referred By Duranac t Referred To Contact Vascular Lab Diagnoses ESRD (end stage renal disease) (HCC) Procedures VAS BILAT MAPPING FOR [place]OD[place]YSIS [place] [id number] [place] [address] [place] [phone] [facility] [address] [place] [address], [address] [place] [id number] Referral ID Status Reason Start Date Expiration Date Visits Re quested Visits Authorized [id number] Closed 05/27/2022 05/27/2023 1 1 ER AND GLUER Reason for Visit * Reason Comments Evaluation * Auth/Cert (Routine) Specialty Diagnoses / Procedures Referred By Contac t Referred To Contact Referral ID Status Reason Start Date Expiration Date Visits Re quested Visits Authorized [id number] 1 1 Encounter Details Date Type Department Care Team (Late st Contact Info) Description 05/27/2022 2:10 PM WEDGER AND GLUER Office Visit [facility] [employer] [facility] - Surgery [address] [place] [address], [address] [place] [address] [place]yer [place] [id number] [place] [address] [place] [address] ESRD (end stage renal disease) (HCC) [...] Coronavirus/COVID-19? No / Unsure 05/17/2022 8:08 AM WEDGER AND GLUER documented as of this encounter Last Filed Vital Signs Vital Sign Reading Time Taken Comments Blood Pressure - - Pulse - - Temperature - - Respiratory Rate - - Oxygen Saturation - - Inhaled Oxygen Concentration - - Weight 55.3 kg (122 lb) 05/27/2022 2:17 PM WEDGER AND GLUER Height 157.5 cm (5' 2) 05/27/2022 2:17 PM WEDGER AND GLUER Body Mass Index 22.31 05/27/2022 2:17 PM WEDGER AND GLUER documented in this encounter Functional Status Functional [...] Patient Instructions * Patient Instructions* Liz Medina - 05/27/2022 2:48 PM WEDGER AND GLUER Patient Name: Jules Mitchell Your procedure has been scheduled for: Date:Friday06/24/2022 Approximate Arrival Time: 6:00AM You will be notified by the hospital regarding your exact arrival time. Surgeon: Place: [x] Mario Iyer M.D. [x][facility]:[address] [place] [address]. Patient Registration [] Osmany Molina M.D. [] [facility] [] Olivier Mathew M.D. Ground Floor/[facility]. [] Regan Zhang M.D. [] [facility] [] Dre Arellano M.D First Floor Main [...] home. Name of Procedure: LEFT UPPER ARM ARTERIOVENOUS FISTULA Your follow-up appointment is: Date: Friday07/08/2022 Time: 11:00AM ER AND GLUER documented in this encounter Progress Notes * Mario Iyer MD - 05/27/2022 2:13 PM CST Chief Complaint ESRD. History of Present Illness Jules Mitchell is a 76 year old male. The patient is referred by Naveen Blackman MD. PCP is Kwame Berg MD. The patient has ESRD and is on hemodialysis. The patient is left handed. The patient denies shortness of breath, leg swelling, fatigue and anorexia. He had a right upper arm deep brachial vein fistula which was converted to a right upper arm graft 02/2020. This has worked well until recently. He has undergone multiple declots of the graft but unfortunately this rethrombosed again on 05/23/2022. Vein mapping showed a stent in the right axilla, no patent veins and poor veins in the left arm. My plan is for a left upper arm dialysis graft. Past Medical History: Diagnosis Date ??? Cancer (CMS/HCC) 1999 pt unsure of type of cancer ??? Chronic kidney disease ??? Dementia (CMS/HCC) ??? ESRD (end stage renal disease) (CMS/HCC) [facility] -[facility],sat as of 05/27/22 ??? High blood pressure [...] UPPER ARM ARTERIOVENOUS FISTULA No Known Allergies Outpatient Medications Marked as Taking for the 05/27/22 encounter (Office Visit) with Mario Iyer MD [...] by mouth Three times a week ??? sodium bicarbonate 325 MG tablet Take 1 (one) tablet by mouth once daily ??? tamsulosin (FLOMAX) 0.4 MG capsule Take 1 (one) capsule by mouth at bedtime At the same time every day after a meal. Social History Tobacco Use ??? Smoking status: Former Types: Cigarettes Quit date: 10/12/2012 Years since quittin.6 ??? Smokeless tobacco: Never Vaping Use ??? Vaping Use: Never used Substance Use Topics ??? Alcohol use: Not Currently ??? Drug use: Never Family History Problem Relation Name Age of Onset ??? Hypertension Mother ??? Hypertension Sister ??? Diabetes - Type 2 Sister Physical Examination: Body mass index is 22.31 kg/m??. Constitutional: Vital signs are stable and the patient is in no acute distress. Eyes: Reveal no icterus, round Neck: Neck is supple without JVD or bruit. Respiratory: Lungs are clear, no SOB Cardiovascular: Regular rate and rhythm. GI: Abdomen is soft and non tender. Musculoskeletal: All four extremities are warm and well perfused. Neurologic: Intact. Review of Systems General: No fatigue or [...] bleeding Rectal: No rectal bleeding or pain Data Reviewed: Vein Mapping: Was ordered and reviewed today for surgical planning. Impression/Plan ESRD, needing emt intermediate dialysis access. Will plan left upper arm dialysis graft I have discussed the risks, benefits and alternatives to surgery with the patient who understands and wishes to proceed. Past Medical History: Diagnosis Date ??? Cancer (CMS/HCC) 2000 pt unsure of type of cancer ??? Chronic kidney disease ??? Dementia (CMS/HCC) ??? ESRD (end stage renal disease) (CMS/HCC) [facility] as of 05/27/22 ??? High blood pressure ??? Pure hypercholesterolemia ??? Stroke (CMS/HCC) per pt ER AND GLUER documented in this encounter Plan of Treatment Upcoming Encounters Date Type Department Care Team (Late st Contact Info) Description 08/23/2024 1:00 PM CDT Appointment [facility] Vascular Services [address] [facility], [address] [place] [address] Mario [place]yer [place] [id number] [place] [address] [address] [place] [address] [place] [address] [facility] [address] [place] [address] documented as of this encounter Results * VAS BILAT MAPPING FOR HEMODIALYSIS (05/27/2022 2:39 PM WEDGER AND GLUER) Anatomical Region Laterality Modality Lower Extremity, Upper Extremity Ultrasound 05/27/2022 2:15 PM WEDGER AND GLUER Narrative Procedure Note Mario Iyer MD - 05/27/2022 [facility] Vascular [facility] [address] [facility], [address] [place] [address] Vessel Mapping for Hemodialysis Report Pat.Name: VALERYJULES Pat.ID: [id number] .Date: 05/27/2022 Exam Time: 2:15:00 PM Study Type:Vessel Mapping for Hemodialysis Age: 2 1945,76Y Sex: MALE Sonogrphr: [place] RVT Pat. Stat.:Outpatient CPT - 4: 02202 Reason for Study: End Stage Renal Disease Procedures: Vessel Mapping for Hemodialysis Race: 2 Visit ID: [id number] ++++++++++++++++++++++++++++++++++++ SUMMARY: ++++++++++++++++++++++++++++++++++++ Patent left arm veins [...] disease documented in this encounter Care Teams Manager Operations Relationship Specialty Start Date End Date Kwame Berg MD PCP - General Internal Medicine 01/19/19 [place] [address] [address] Orthopedic Surgery Orthopedic Surgery 10/13/19 documented as of this encounter
--- OUTSIDE RECORDS SUMMARY | 2024-04-25 21:19 | XMS_ITS | Encounter Summary ---
Author Organization [facility] Address [address] [place] [address] Care Team Providers Care Fruit Harvest Worker Name Role Phone Kwame Berg MD Primary Care Provider [phone] Dylon Agudelo MD Unavailable Encounter Details Date Type Department Care Team (Latest Contact Info) Description 03/27/2020 Travel Social History Tobacco Use Types Packs/Day [...] COVID-19? No / Unsure 03/27/2020 12:06 PM ONLINE COMMUNITY MANAGER documented as of this encounter Functional Status [...] Description 08/23/2024 1:00 PM CDT Appointment [facility] Health Vascular Services [address] [facility] [address] [place], [place] [address] [place] [address] [facility] [address] [place] [address] [place] [address] [facility] [address] [place] [address] documented as of this encounter Visit Diagnoses Not on filedocumented in this encounter Care Teams Fruit Harvest Worker Relationship Specialty Start Date End Date Kwame Berg MD PCP - General Internal Medicine 01/19/19 [place] [address] [facility] [address] [place] [address] Orthopedic Surgery Orthopedic Surgery 10/13/19 documented as of this encounter
--- OUTSIDE RECORDS SUMMARY | 2024-04-25 21:19 | XMS_ITS | Encounter Summary ---
Author Organization [facility] Address [address] [facility] [place] [address] Care Team Providers Care Flooring Machine Operator Name Role Phone Kwame Berg MD Primary Care Provider [phone] Dylon Agudelo MD Unavailable [phone] Reason for Visit * Reason Comments Follow-up lt hip pain Encounter Details Date Type Department Care Team (Late st Contact Info) Description 03/03/2020 9:40 AM JUNIOR SYSTEMS ENGINEER Office Visit [facility] Orthopedics [address] [facility], [address] [address] [place] [address] [address] Status post total hip replacement, 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 No / Unsure 03/03/2020 10:05 AM JUNIOR SYSTEMS ENGINEER documented as of this encounter Functional Status [...] as of this encounter Progress Notes * Dylon Agudelo MD - 03/03/2020 10:01 AM CST ORTHOPAEDIC CLINIC NOTE NAME: Jules Mitchell DATE OF SERVICE: DATE: 1945 PCP: Kwame Berg MD Chief Complaint Patient presents with ??? Follow-up lt hip pain HISTORY: Jules Mitchell is a 74 year old male who presents for follow up regarding a left CARLOZ, sup @ 6 wks. The patient rates his pain as a 0 out of 10. The patient has no complaints today. ALLERGIES: Allergies as of 03/03/2020 ??? (No Known Allergies) PHYSICAL EXAMINATION: General appearance: alert, cooperative, no distress. Extremities: Skin: healed incision Swelling: mild ROM: full Strength: 4 on 5 Gait: walker Neurological Exam: thigh numbness Vascular Exam: normal ASSESSMENT: left CARLOZ @ 6 weeks PLAN: Doing well Increase activities D/c DVT PPX Continue HEP for hip flexor and abduction strength RTC 6 wks OR SYSTEMS ENGINEER documented in this encounter Plan of Treatment Upcoming Encounters Date Type Department Care Team (Late st Contact Info) Description 08/23/2024 1:00 PM CDT Appointment [facility] Health Vascular Services [address] [facility], [address] [place] [address] [place] [address] [facility] [address] [place] [address] [place] [address] [facility] [address] [place] [address] documented as of this encounter Visit Diagnoses Diagnosis Status post total hip replacement, left on 01/12/2020- Primary documented in this encounter Care Teams Flooring Machine Operator Relationship Specialty Start Date End Date Kwame Berg MD PCP - General Internal Medicine 01/19/19 [place] [address] [address] Orthopedic Surgery Orthopedic Surgery 10/13/19 documented as of this encounter
--- OUTSIDE RECORDS SUMMARY | 2024-04-25 21:19 | XMS_ITS | Encounter Summary ---
Author Organization [facility] Address [facility] [place] [address] Care Team Providers Care Vp Talent Management Name Role Phone Kwame Berg MD Primary Care Provider [phone] Dylon Agudelo MD Unavailable [phone] Encounter Details Date Type Department Care Team (Latest Contact Info) Description 07/07/2020 8:37 AM BANKING SERVICES CLERK - 07/07/2020 11:59 PM BANKING SERVICES CLERK Hospital Encounter [facility] Imaging Services - Radiology [address] [place] [address] [place] [address] [facility] [address] [place] [address] Discharge Disposition: Home or Self [...] have Coronavirus / COVID-19? No / Unsure 07/07/2020 8:23 AM BANKING SERVICES CLERK documented as of this encounter Functional Status [...] :ESRD (end stage renal disease) ([facility]) Inject 4,000 Units subcutaneously every 7 days 01/20/2020 09/13/2020 lisinopril (PRINIVIL;ZESTRIL) 5 MG tablet Take 5 [...] Info) Description 08/23/2024 1:00 PM CDT Appointment [facility] Vascular Services [address] [facility], [address] [place] [address] [place] [address] [facility] [address] [place] [address] [place] [address] [facility] [address] [place] [address] documented as of this encounter Procedures Procedure Name Priority Date/Time Associated Diagnosis Comments XR WRIST RIGHT 3VW OR MORE Routine 07/07/2020 9:03 AM BANKING SERVICES CLERK Pain and swelling of forearm, right documented in this encounter Results * XR WRIST RIGHT 3VW OR MORE (07/07/2020 9:03 AM BANKING SERVICES CLERK) Anatomical Region Laterality Modality Wrist / Hand Radiographic Cathy ging 07/07/2020 3:01 PM BANKING SERVICES CLERK Impressions 07/07/2020 3:02 PM BANKING SERVICES CLERK Polyarticular, multifocal erosions, degenerative narrowing and collapse of the carpal row. *Reading Radiologist: Flores Crenshaw on 07/07/2020 at 3:02 PM Narrative 07/07/2020 3:02 PM BANKING SERVICES CLERK Right wrist 3 views unilateral INDICATION: Pain [...] Flores Crenshaw on 07/07/2020 at 3:02 PM John. Kalpesh Pastor MD DIAGNOSTIC IMAGING O RDERABLES documented in this encounter Visit Diagnoses Diagnosis Pain and swelling of forearm, right documented in this encounter Care Teams Vp Talent Management Relationship Specialty Start Date End Date Kwame Berg MD PCP - General Internal Medicine 01/19/19 [place] [address] [address] Orthopedic Surgery Orthopedic Surgery 10/13/19 documented as of this encounter
--- OUTSIDE RECORDS SUMMARY | 2024-04-25 21:19 | XMS_ITS | Encounter Summary ---
Author Organization [facility] Address [address] [place] [address] Care Team Providers Care Line Installer Name Role Phone Kwame Berg MD Primary Care Provider [phone] Dylon Agudelo MD Unavailable [phone] Encounter Details Date Type Department Care Team (Latest Contact Info) Description 01/20/2020 5:12 PM CDT - 02/01/2020 4:40 PM CDT Hospital Encounter [facility] Hospital [address] [place] [address] [facility] Rehabilitation [address] [place] [address] Rehabilitation Discharge Disposition: Home or Self Care Social [...] UNIT/ML injectionIndications :ESRD (end stage renal disease) ([facility]) Inject 4,000 Units subcutaneously every [...] Appointment [facility] Health Vascular Services [address] [facility], [facility] [address] [place], [place] [phone] [place] [address] [facility] [address] [place] [address] [place] [address] [facility] [address] [place] [address] documented as of this encounter Visit Diagnoses Not on filedocumented in this encounter Care Teams Line Installer Relationship Specialty Start Date End Date Kwame Berg MD PCP - General Internal Medicine 01/19/19 [place] [address] [facility] [address] [place] [address] Orthopedic Surgery Orthopedic Surgery 10/13/19 documented as of this encounter
--- OUTSIDE RECORDS SUMMARY | 2024-04-25 21:19 | XMS_ITS | Encounter Summary ---
Author Organization [facility] Address [address] [facility] [place] [address] Care Team Providers Care Cutter Helper Name Role Phone Kwame Berg MD Primary Care Provider [phone] Dylon Agudelo MD Unavailable [phone] Encounter Details Date Type Department Care Team (Late st Contact Info) Description 07/20/2020 Orders Only [facility] Medical Group - COVID Vax [address] [place] [address] Michael Stovall MD [address] [facility] [address] [place] [address] Need for vaccination Social History Tobacco Use Types Packs/Day Years [...] COVID-19? No / Unsure 07/07/2020 8:23 AM STUDY MANAGER documented as of this encounter Functional [...] Info) Description 08/23/2024 1:00 PM CDT Appointment [facility] Health Vascular Services [address] [facility], [address] [place] [address] [place] [address] [facility] [address] [place] [address] [place] [address] [facility] [address] [place] [address] documented as of this encounter Visit Diagnoses Diagnosis Need for vaccination Need for prophylactic vaccination and inoculation against unspecified single disease documented in this encounter Care Teams Cutter Helper Relationship Specialty Start Date End Date Kwame Berg MD PCP - General Internal Medicine 01/19/19 [place] [address] [facility] [address] [place] [address] Orthopedic Surgery Orthopedic Surgery 10/13/19 documented as of this encounter
--- OUTSIDE RECORDS SUMMARY | 2024-04-25 21:19 | XMS_ITS | Encounter Summary ---
Author Organization [facility] Address [address] [place] [address] Care Team Providers Care Process Improvement Analyst Name Role Phone Kwame Berg MD Primary Care Provider [phone] Dylon Agudelo MD Unavailable [phone] Reason for Visit * Reason Onset Date Comments Surgery Scheduling 02/10/2020 Encounter Details Date Type Department Care Team (Late st Contact Info) Description 02/10/2020 Telephone [facility] Medical Group - Surgery [address] [facility], [address] [address] [place] [address] [address] Surgery Scheduling Social History Tobacco Use Types Packs/Day [...] encounter Miscellaneous Notes * Telephone Encounter - AnushajesusindraCherelle - 02/10/2020 2:38 PM CDT Called patient to set up surgery with Dr Iyer. No answer, left message to call the office back documented in this encounter Plan of Treatment Upcoming Encounters Date Type Department Care Team (Late st Contact Info) Description 08/23/2024 1:00 PM CDT Appointment [facility] Vascular Services [address] [facility], [address] [place] [address] [place] [address] [facility] [address] [place] [address] [place] [address] [facility] [address] [place] [address] documented as of this encounter Visit Diagnoses Not on filedocumented in this encounter Care Teams Process Improvement Analyst Relationship Specialty Start Date End Date Kwame Berg MD PCP - General Internal Medicine 01/19/19 [place] [address] [facility] [address] [place] [address] Orthopedic Surgery Orthopedic Surgery 10/13/19 documented as of this encounter
--- OUTSIDE RECORDS SUMMARY | 2024-04-25 21:19 | XMS_ITS | Encounter Summary ---
Author Organization [facility] Address [address] [facility] [place] [address] Care Team Providers Care Radiology Physician Assistant Name Role Phone Kwame Berg MD Primary Care Provider [phone] Dylon Agudelo MD Unavailable [phone] Encounter Details Date Type Department Care Team (Late st Contact Info) Description 02/29/2020 Orders Only [facility] Medical Group - Surgery [address] [facility], [address] [place] [address] [place] [address] [facility] [address] [place] [address] Social History Tobacco Use Types Packs/Day Years [...] * Patient Instructions* Liz Medina E - 02/29/2020 9:30 AM RN TEACHER Patient Name: Jules Mitchell Your procedure has been scheduled for: Date:Friday03/15/2020 Approximate Arrival Time: 1:00PM You will be notified by the hospital regarding your exact arrival time. Surgeon: Place: [x] Mario Iyer M.D. [x] [facility] 2nd [facility]. [] Osmany Molina M.D. [] [facility] [] Olivier Mathew M.D. [] [facility] Entrance [] Regan Zhang M.D. Endoscopy. [] [place] M.D. [] [address] [facility] [] Leela Myrick D.O. Surgery Dept. [] Osmany Argueta M.D. [] [facility] [] Dre Arellano M.D. Ground Floor/[facility]. [] Donna Powers D.O. [] Delmer Patrick M.D. INSTRUCTIONS: [x] Nothing to eat or drink after midnight. [x] Do take heart, blood pressure, or breathing medications with a sip of water the morning of surgery. [x] DO NOT take diabetic medication the morning of surgery as you will not be able to eat. [] DO NOT take any products containing ASPIRIN for one (1) week prior to surgery and for two (2) weeks after surgery. [] DO NOT take IBUPROFEN (Motrin, Advil, Nuprin) for one (1) week prior to surgery. [] DO NOT take any NAPROXEN (Aleve) or any anti-inflammatory medications for arthritis. [] DO NOT take PLAVIX/COUMADIN/WARFARIN/PRADAXA/XARELTO/EFFIENT for days. Your last dose will be [] Clear Liquid Diet Only on day before procedure/date [] You are having local anesthesia, you DO NOT need to fast, you may drive yourself. [x] You will be having OUTPATIENT SURGERY. You will need someone to drive you home. [] You will spend one (1) night in the hospital. [] You will need to be admitted to the hospital after surgery. Name of Procedure: RIGHT ARM DIALYSIS FISTULA TRANSPOSITION, POSSIBLE RIGHT ARM ARTERIOVENOUS GRAFT Comments: Your follow-up appointment is: Date:Friday03/27/2020 Time: 11:50AM TEACHER documented in this encounter Plan of Treatment Upcoming Encounters Date Type Department Care Team (Late st Contact Info) Description 08/23/2024 1:00 PM CDT Appointment [facility] Health Vascular Services [address] [facility], [address] [place] [address] [place] [address] [facility] [address] [place] [address] [place] [address] [facility] [address] [place] [address] documented as of this encounter Visit Diagnoses Not on filedocumented in this encounter Care Teams Radiology Physician Assistant Relationship Specialty Start Date End Date Kwame Berg MD PCP - General Internal Medicine 01/19/19 [place] [address] [facility] [address] [place] [address] Orthopedic Surgery Orthopedic Surgery 10/13/19 documented as of this encounter
--- OUTSIDE RECORDS SUMMARY | 2024-04-25 21:19 | XMS_ITS | Encounter Summary ---
Author Organization [facility] Address [address] [place] [address] Care Team Providers Care Tire Service Technician Name Role Phone Kwame Berg MD Primary Care Provider [phone] Dylon Agudelo MD Unavailable [phone] Reason for Visit * Auth/Cert Specialty Diagnoses / Procedures Referred By Contac t Referred To Contact Procedures ARTERIOVENOUS FISTULA TRANSPOSITION / SUPERFICIALIZATION Referral ID Status Reason Start Date Expiration Date Visits Re quested Visits Authorized [id number] 1 1 Encounter Details Date Type Department Care Team (Latest Contact Info) Description 03/15/2020 11:57 AM SCHOOL PSYCHOLOGIST - 03/15/2020 4:14 PM SCHOOL PSYCHOLOGIST Hospital Encounter [facility] [address] [place] [address] [place] [address] [facility] [address] [place] [phone] Surgery General Discharge Disposition: Home or [...] COVID-19? No / Unsure 03/03/2020 10:05 AM SCHOOL PSYCHOLOGIST documented as of this encounter Last Filed Vital Signs Vital Sign Reading Time Taken Comments Blood Pressure 153/65 03/15/2020 3:50 PM SCHOOL PSYCHOLOGIST Pulse 76 03/15/2020 3:50 PM SCHOOL PSYCHOLOGIST Temperature 36.6 ??C (97.8 ??F) 03/15/2020 3:50 PM CS T Respiratory Rate 16 03/15/2020 3:50 PM SCHOOL PSYCHOLOGIST Oxygen Saturation 100% 03/15/2020 3:50 PM SCHOOL PSYCHOLOGIST Inhaled Oxygen Concentration - - Weight 60.6 kg (133 lb 9.6 oz) 03/15/2020 12:35 PM SCHOOL PSYCHOLOGIST Height 157.5 cm (5' 2) 03/15/2020 12:35 PM SCHOOL PSYCHOLOGIST Body Mass Index 24.44 03/15/2020 12:35 PM SCHOOL PSYCHOLOGIST documented in this encounter Functional Status Functional [...] UNIT/ML injectionIndications :ESRD (end stage renal disease) ([facility]) Inject 4,000 Units subcutaneously every 7 days [...] as of this encounter H&P Notes * BrittanyLeyla altamirano - 03/14/2020 8:30 AM CST Surgical H&P [...] Past Medical History: Diagnosis Date ??? Cancer 1999 ?? patient/family unsure of type ??? ESRD (end stage renal disease) ? [facility] 11/2419 ??? ESRD on dialysis ? High [...] Past Medical History: Diagnosis Date ??? Cancer 1999 ?? patient/family unsure of type ??? ESRD (end stage renal disease) ? [facility] 11/[facility] ??? ESRD on dialysis ? High blood pressure ? OL PSYCHOLOGIST documented in this encounter OR Notes * OR Surgeon - Mario Iyer MD - 03/15/2020 3:09 PM CST [facility] REPORT PATIENT: Jlues Mitchell MR#: [id number] ADMIT DATE: 03/15/2020 11:57 AM CSN # [id number] DATE OF SURGERY: 03/15/2020 : 1945 PHYSICIAN: [...] was used to tunnel the 4-7 mm [facility] graft subcutaneously under the skin. The patient [...] ahead with today's surgery. Mario Iyer MD OL PSYCHOLOGIST documented in this encounter Plan of Treatment Upcoming Encounters Date Type Department Care Team (Late st Contact Info) Description 08/23/2024 1:00 PM CDT Appointment [facility] [id number] [place] [address], [address] [place] [address] [place] [address] [facility] [address] [place] [phone] [place] [address] [facility] [address] [place] [address] documented as of this encounter Procedures Procedure Name Priority Date/Time Associated Diagnosis Comments ARTERIOVENOUS FISTULA TRANSPOSITION / SUPERFICIALIZATION 03/15/2020 1:27 PM SCHOOL PSYCHOLOGIST BASIC METABOLIC PANEL (CALCIUM TOTAL) STAT 03/15/2020 12:23 PM SCHOOL PSYCHOLOGIST Preop examination documented in this encounter Results * (ABNORMAL) BASIC METABOLIC PANEL (CALCIUM TOTAL) (03/15/2020 12:23 PM SCHOOL PSYCHOLOGIST) Glucose 86 70 - 105 mg/dL 03/15/2020 12:51 PM SCHOOL PSYCHOLOGIST [facility] Sodium 143 136 - 145 mmol/L 03/15/2020 12:51 PM SCHOOL PSYCHOLOGIST [facility] Potassium 4.3 3.5 - 5.1 mmol/L 03/15/2020 12:51 PM SCHOOL PSYCHOLOGIST [facility] Chloride 106 98 - 107 mmol/L 03/15/2020 12:51 PM SCHOOL PSYCHOLOGIST [facility] CO2 23 23 - 31 mmol/L 03/15/2020 12:51 PM SCHOOL PSYCHOLOGIST [facility] Calcium 10.4 8.4 - 10.4 mg/dL 03/15/2020 12:51 PM SCHOOL PSYCHOLOGIST [facility] Anion Gap 14 8 - 18 mmol/L 03/15/2020 12:51 PM SCHOOL PSYCHOLOGIST [facility] Comment:Attention clinician: Reference Range change. BUN 29(H) 8.4 - 25.7 mg/dL 03/15/2020 12:51 PM SCHOOL PSYCHOLOGIST [facility] Creatinine 6.44(H) 0.72 - 1.25 mg/dL 03/15/2020 12:51 PM SCHOOL PSYCHOLOGIST [facility] eGFR by MDRD 8 mL/min/1.7 3m2 03/15/2020 12:51 PM SCHOOL PSYCHOLOGIST [facility] eGFR by MDRD 10 mL/min/1.7 3m2 03/15/2020 12:51 PM SCHOOL PSYCHOLOGIST [facility] Blood BLOOD SPECIMEN / Unknown Venipuncture / Unknown 03/15/2020 12:23 PM SCHOOL PSYCHOLOGIST 03/15/2020 12:34 PM SCHOOL PSYCHOLOGIST Megan Ca DO LAB - CHEMISTRY [facility] [address] [place] [id number] documented in this encounter Visit Diagnoses Diagnosis Preop examination- Primary Preoperative examination, unspecified documented in this encounter Administered Medications Inactive [...] Pre-op $ New Bag/Syringe 03/15/2020 1:38 PM SCHOOL PSYCHOLOGIST heparinized saline 2 units/ml infusion CONTINUOUS PRN, Starting on Fri03/15/20 at 1411, Until Fri03/15/20 at 1714, Intra-op $ New Bag/Syringe 03/15/2020 2:11 PM SCHOOL PSYCHOLOGIST 1,000 mL Operative Site lidocaine 1% - EPINEPHrine 1:100,000 injection PRN, Starting on Fri03/15/20 at 1504, Until Fri03/15/20 at 1714, Intra-op $ Given 03/15/2020 3:04 PM SCHOOL PSYCHOLOGIST 40 mL Operative Site protamine injection PRN, Starting on Fri03/15/20 at 1450, Until Fri03/15/20 at 1714, Intra-op $ Given 03/15/2020 2:50 PM SCHOOL PSYCHOLOGIST 50 mg Left Arm documented in this encounter Active and Recently Administered Medications Times are shown in SCHOOL PSYCHOLOGIST. Scheduled Medication Order 03/13/2020 03/14/2020 03/15/2020 ceFAZolin (ANCEF) 2,000 mg in 50 ml IVPB (COMPLETED) 2,000 mg (2 g), at 100 mL/hr, Intravenous, ONCE, 1 dose, On Fri03/15/20 at 1230, Administer 30 minutes prior to surgical incision., Indication for anti-infective therapy: Surgical prophylaxis, Pre-op 1338 ($ Given - Prov ider: Flores Holland, ASSOCIATE PROFESSOR OF LITERACY-RISK CONSULTING TREASURY DIRECTOR) lidocaine PF (XYLOCAINE MPF) 1 % injection [...] arm) documented in this encounter Care Teams Tire Service Technician Relationship Specialty Start Date End Date Kwame Berg MD PCP - General Internal Medicine 01/19/19 [place] [address] [phone] Orthopedic Surgery Orthopedic Surgery 10/13/19 documented as of this encounter
--- OUTSIDE RECORDS SUMMARY | 2024-04-25 21:19 | XMS_ITS | Encounter Summary ---
Author Organization [facility] Address [address] [facility] [place] [address] Care Team Providers Care Component Lab Tech Name Role Phone Kwame Berg MD Primary Care Provider [phone] Dylon Agudelo MD Unavailable [phone] Reason for Referral * (Routine) - Closed Specialty Diagnoses / Procedures Referred By Vivienne burrell Referred To Contact Procedures [place] [address] [address] [place] [address] [address] Referral ID Status Reason Start Date Expiration Date Visits Re quested Visits Authorized [id number] Closed 06/24/2022 06/24/2023 1 1 PRESS OPERATOR Reason for Visit * Auth/Cert (Routine) Specialty Diagnoses / Procedures Referred By Contac t Referred To Contact Procedures INSERTION GRAFT ARTERIO-VENOUS (AV) ARM Referral ID Status Reason Start Date Expiration Date Visits Re quested Visits Authorized [id number] 1 1 Encounter Details Date Type Department Care Team (Latest Contact Info) Description 06/24/2022 6:43 AM CAKE PRESS OPERATOR - 06/24/2022 11:44 AM CAKE PRESS OPERATOR Hospital Encounter [facility] [address] [place] [address] [place] [address] [phone] Surgery General Discharge Disposition: Home [...] Coronavirus/COVID-19? No / Unsure 05/17/2022 8:08 AM CAKE PRESS OPERATOR documented as of this encounter Last Filed Vital Signs Vital Sign Reading Time Taken Comments Blood Pressure 157/71 06/24/2022 10:31 AM CAKE PRESS OPERATOR Pulse 92 06/24/2022 9:25 AM CAKE PRESS OPERATOR Temperature 36.2 ??C (97.1 ??F) 06/24/2022 9:25 AM CS T Respiratory Rate 16 06/24/2022 9:25 AM CAKE PRESS OPERATOR Oxygen Saturation 96% 06/24/2022 10:31 AM CAKE PRESS OPERATOR Inhaled Oxygen Concentration - - Weight 59.4 kg (131 lb) 06/24/2022 7:29 AM CAKE PRESS OPERATOR Height 157.5 cm (5' 2) 06/24/2022 7:29 AM CAKE PRESS OPERATOR Body Mass Index 23.96 06/24/2022 7:29 AM CAKE PRESS OPERATOR documented in this encounter Functional Status Functional [...] same time every day after a meal. HYDROcodone-acetaminophe n (Coin) 5-325 MG tabletIndications:Encoun ter regarding vascular access for dialysis for end-stage renal disease (HCC) Take 1 (one) tablet by mouth every 6 hours as needed for Pain 12 tablet 06/24/2022 10/18/2022 lanthanum (Fosrenol) 500 MG chew tablet 1 [...] 10/21/2022 vitamin D, ergocalciferol, (DRISDOL) 1.25 MG (54282 UT) capsule Take 1 (one) capsule by mouth every 30 days 10/18/2022 documented as of this encounter Progress Notes * Abigail Florence RN - 06/24/2022 11:[address] Iyer at bedside. Pt ok for discharge home. PRESS OPERATOR documented in this encounter H&P Notes * Mario Iyer MD - 06/20/2022 8:10 AM CST Surgical H&P Chief Complaint ESRD. ?? History of Present Illness Jules Mitchell is [...] for a left upper arm dialysis graft. ?? Past Medical & Surgical History Past Medical History: Diagnosis Date ??? Cancer (CMS/HCC) 1999 ?? pt unsure of type of cancer ??? Chronic kidney disease ? Dementia (CMS/HCC) ? ESRD (end stage renal disease) (CMS/HCC) ? [facility],sat as of 05/27/22 ??? High blood pressure ? Pure hypercholesterolemia ? Stroke (CMS/HCC) ? per pt ? Past Surgical History: Procedure Laterality Date ??? [...] ?? RIGHT UPPER ARM ARTERIOVENOUS FISTULA ? No Known Allergies ?? Medications Outpatient Medications Marked as Taking for [...] tablet by mouth 3 times daily ? furosemide (LASIX) 80 MG tablet Take 1 (one) tablet by mouth 2 times daily ? lanthanum (Fosrenol) 500 MG chew tablet ? levETIRAcetam (KEPPRA) 100 MG/ML oral solution ? lidocaine-prilocaine (EMLA) 2.5-2.5 % cream ? lisinopril (PRINIVIL; ZESTRIL) 10 MG tablet ? polyethylene glycol 3350 (MIRALAX) 17 g packet Take 17 (seventeen) g by mouth once daily as needed ? rOPINIRole (REQUIP) 0.5 MG tablet Take 1 (one) tablet by mouth Three times a week ? sodium bicarbonate 325 MG tablet Take 1 (one) tablet by mouth once daily ? tamsulosin (FLOMAX) 0.4 MG capsule Take 1 (one) capsule by mouth at bedtime At the same time every day after a meal. ? Social History ?? Tobacco Use ??? Smoking status: Former ? Types: Cigarettes ? Quit date: 10/12/2012 ? Years since quittin.6 ??? Smokeless tobacco: Never Vaping Use ??? Vaping Use: Never used Substance Use Topics ??? Alcohol use: Not Currently ??? Drug use: Never ? Family History Problem Relation Name Age of Onset ??? Hypertension Mother ? Hypertension Sister ? Diabetes - Type 2 Sister ? Physical Examination: Body mass index is 22.31 kg/m??. Constitutional: Vital signs are stable and the patient is in no acute distress. Eyes: Reveal no icterus, round Neck: Neck is supple without JVD or bruit. Respiratory: Lungs are clear, no SOB Cardiovascular: Regular rate and rhythm. GI: Abdomen is soft and non tender. Musculoskeletal: All four extremities are warm and well perfused. Neurologic: Intact. ?? Review of Systems General: No fatigue or [...] bleeding Rectal: No rectal bleeding or pain ?? Data Reviewed: Vein Mapping: Was ordered and reviewed today for surgical planning. ?? Impression/Plan ESRD, needing extermination supervisor dialysis access. Will plan left upper arm dialysis graft I have discussed the risks, benefits and alternatives to surgery with the patient who understands and wishes to proceed. In addition to the standard procedural informed consent, the specific risks related to COVID-19 were also discussed, including the possibility of an infection being present with a negative test, the risk of lisa COVID-19, and the known implications of this infection. See consent form. ? Past Medical & Surgical History Past Medical History: Diagnosis Date ??? Cancer (CMS/HCC) 2000 ?? pt unsure of type of cancer ??? Chronic kidney disease ? Dementia (CMS/HCC) ? ESRD (end stage renal disease) (CMS/HCC) ? [facility],sat as of 05/27/22 ??? High blood pressure ? Pure hypercholesterolemia ? Stroke (CMS/HCC) ? per pt ?? PRESS OPERATOR documented in this encounter OR Notes * OR Surgeon - Mario Iyer MD - 06/24/2022 9:[address] [facility] REPORT PATIENT: Jules Mitchell MR#: [id number] ADMIT DATE: 06/24/2022 6:43 AM CSN # [id number] DATE OF SURGERY: 06/24/2022 : 1945 PHYSICIAN: Mario Iyer MD PREOPERATIVE DIAGNOSIS: End stage renal disease. POSTOPERATIVE DIAGNOSIS: End stage renal disease. PROCEDURE PERFORMED: Left upper arm deep brachial vein arteriovenous fistula. FINDINGS: The artery was little small and we were able to get a little extra length on the deep brachial vein. Patient has the fairly thin arm so I think there is a possibility for a good transposition in him. SURGEON: Mario Iyer MD ANESTHESIA: 1% lidocaine with epinephrine as a local anesthetic with IV sedation by the anesthesiologist. COMPLICATIONS: None. DRAINS: None. ESTIMATED BLOOD LOSS: Less than 50ml. CONDITION: The patient is stable postoperatively. PROCEDURE: Once the patient was prepped and draped in the usual sterile fashion, the patient was given 1% lidocaine with epinephrine as a local anesthetic and IV sedation by the anesthesiologist. The patient tolerated this well. The antecubital fossa was opened. The left deep brachial vein was dissected out as was the brachial artery. End-to-side anastomosis was performeed with 6-0 Prolene in a simple running fashion with two separate suture lines. Just prior to the anastomosis, the patient was given 3,000 units of heparin intravenously. Once completed, the fistula was opened. There was excellent flow in the outflow vein. The patient retained a nicely palpable left radial artery. The incision was then closed with 2-0 nylon in a interrupted vertical mattress fashion. The patient tolerated the procedure well and was found to be stable in the recovery room postoperatively. Sponge and instrument counts were correct x2. Preoperatively, the patient and the patient's family understood the risks of the procedure to be bleeding, infection, pain, poor wound healing, decreased circulation to the left zeeshan the possible need for further dialysis access surgery. With all this in mind, the patient was willing to go ahead with today's surgery. Mario Iyer MD PRESS OPERATOR documented in this encounter Plan of Treatment Upcoming Encounters Date Type Department Care Team (Late st Contact Info) Description 08/23/2024 1:00 PM CDT Appointment [facility] [address] [facility], [address] [place] [address] [place] [address] [facility] [place] [address] [place] [address] [place] [address] [facility] [place] [address] [place] [address] documented as of this encounter Procedures Procedure Name Priority Date/Time Associated Diagnosis Comments BLOOD GAS+COOX+ELECTROLYTES+ METAB VENOUS Routine 06/24/2022 7:48 AM CAKE PRESS OPERATOR CREATION ARTERIOVENOUS (AV) FISTULA DIRECT 06/24/2022 7:46 AM CAKE PRESS OPERATOR documented in this encounter Results * (ABNORMAL) BLOOD GAS+COOX+ELECTROLYTES+METAB VENOUS (06/24/2022 7:48 AM CAKE PRESS OPERATOR) pH Venous 7.44(H) 7.32 - 7.42 pH 06/24/2022 7:48 AM CAKE PRESS OPERATOR [facility] pO2 Venous 43(H) 35 - 40 mmHg 06/24/2022 7:48 AM CAKE PRESS OPERATOR [facility] pCO2 Venous 48 40 - 50 mmHg 06/24/2022 7:48 AM CAKE PRESS OPERATOR [facility] HCO3 Venous 32.6(H) 24 - 26 mmol/L 06/24/2022 7:48 AM CAKE PRESS OPERATOR [facility] Base Excess Venous 7.5(H) -2.0 - 2.0 mmol/L 06/24/2022 7:48 AM CAKE PRESS OPERATOR [facility] Oxyhemoglobin Venous 70.6 % 05/30 7:48 AM CAKE PRESS OPERATOR [facility] Deoxyhemoglobin (HHB) Venous % 27.4 % 06/24/2022 7:48 AM CAKE PRESS OPERATOR [facility] Methemoglobin <0.8 0.0 - 2.0 % 06/24/2022 7:48 AM CAKE PRESS OPERATOR [facility] Carboxyhemoglobin 2.0 0.0 - 2.0 % 06/24/2022 7:48 AM CAKE PRESS OPERATOR [facility] O2 Content Venous 9.5 ml/dL 023 7:48 AM CAKE PRESS OPERATOR [facility] Hemoglobin by COOX 9.5(L) 12.0 - 17.6 g/dL 06/24/2022 7:48 AM CAKE PRESS OPERATOR [facility] O2 Saturation Venous 72 >=70 % 05/30 7:48 AM CAKE PRESS OPERATOR [facility] Sodium Whole Blood 138 135 - 145 mmol/L 06/24/2022 7:48 AM CAKE PRESS OPERATOR [facility] Potassium Whole Blood 4.8 3.5 - 5.5 mmol/L 06/24/2022 7:48 AM CAKE PRESS OPERATOR [facility] Chloride WB 97(L) 101 - 111 mmol/L 06/24/2022 7:48 AM CAKE PRESS OPERATOR [facility] Calcium Ionized 1.08 mmol/L 7:48 AM CAKE PRESS OPERATOR [facility] Ionized Calcium pH Adjusted 1.10(L) 1.19 - 1.34 mmol/L 06/24/2022 7:48 AM CAKE PRESS OPERATOR [facility] Anion Gap (AG) Arterial 13 8 - 18 mmol/L 06/24/2022 7:48 AM CAKE PRESS OPERATOR [facility] Glucose WB 90 70 - 105 mg/dL 06/24/2022 7:48 AM CAKE PRESS OPERATOR [facility] Lactic Acid Whole Blood 1.0 <=2.0 mmol/L 06/24/2022 7:48 AM CAKE PRESS OPERATOR [facility] Blood BLOOD SPECIMEN / Unknown 06/24/2022 7:48 AM CAKE PRESS OPERATOR 06/24/2022 7:48 AM CAKE PRESS OPERATOR Narrative [facility] - 06/24/2022 7:48 AM CAKE PRESS OPERATOR Test performed by a Licensed Healthcare Provider Mario Iyer MD LAB - BLOOD GASES ORDERABLES [facility] [address] [phone] documented in this encounter Visit Diagnoses Diagnosis Pre-op evaluation- Primary Preoperative examination, unspecified Encounter regarding vascular access for dialysis for [...] Pre-op $ New Bag/Syringe 06/24/2022 7:57 AM CAKE PRESS OPERATOR 0.9% NaCl injection 1-10 mL 1-10 mL, Intracatheter, PRN, Other, peripheral line flush, Starting on Fri06/24/22 at 0651, Until Fri06/24/22 at 1245, Flush peripheral IV catheter with 1-10 mL of normal saline before and after medications and prn to clear blood from the line or to verify patency., Pre-op 0.9% NaCl injection 3 mL 3 mL, Intracatheter, EVERY 8 HOURS, First dose on Fri06/24/22 at 0700, Until Discontinued, Flush peripheral IV catheter with 3 mL of normal saline every 8 hours., Pre-op heparin injection 2,400 Units 2,400 Units, Intracatheter, ONCE, 1 dose, On Fri06/24/22 at 1015 $ Admin. by Other Provider 06/24/2022 10:20 AM CAKE PRESS OPERATOR 2,400 Units heparinized saline 2 units/ml infusion CONTINUOUS PRN, Starting on Fri06/24/22 at 0914, Until Fri06/24/22 at 1245, Intra-op $ New Bag/Syringe 06/24/2022 9:14 AM CAKE PRESS OPERATOR 1,000 mL Operative Site lidocaine 2% (Xylocaine-MPF) - EPINEPHrine 1:200,000 injection PRN, Starting on Fri06/24/22 at 0914, Until Fri06/24/22 at 1245, Intra-op $ Given 06/24/2022 9:14 AM CAKE PRESS OPERATOR 17 mL Operative Site Oxidized Cellulose PADS PRN, Starting on Fri06/24/22 at 0856, Until Fri06/24/22 at 1245, Intra-op $ Given 06/24/2022 8:56 AM CAKE PRESS OPERATOR 1 Each Operative Site Additional Administered Medications Medication Order MAR Action Action Date Dose Rate Site PPD Given 05/16/2020 PPD Given 08/15/2020 PPD Given 08/14/2021 documented in this encounter Active and Recently Administered Medications Times are shown in CAKE PRESS OPERATOR. Scheduled Medication Order 2022 06/23/2022 06/24/2022 0.9% NaCl injection 3 mL(Linked Group 1) 3 mL, Intracatheter, EVERY 8 HOURS, First dose on Fri06/24/22 at 0700, Until Discontinued, Flush peripheral IV catheter with 3 mL of normal saline every 8 hours., Pre-op 0700 (Due) acetaminophen (Tylenol) tablet 1,000 mg 1,000 mg, Oral, PRE-OP ONCE, 1 dose, On Fri06/24/22 at 0700, For patients >50 Kg. Not for bariatric or cardiac patients. Patient preference for lesser PRN pain meds may be honored when the patient requests a less strong medication, a lower dose, or a less intrusive route of administration when the lesser drug, dose and route have been ordered for the patient. This patient request must be documented in the MAR., Pre-op 0700 (Due) ceFAZolin (Ancef) 2,000 mg in 50 ml IVPB (COMPLETED) 2,000 mg (2 g), at 100 mL/hr, Intravenous, ONCE, 1 dose, On Fri06/24/22 at 0700, Administer 30 minutes prior to surgical incision., Indication for anti-infective therapy: Surgical prophylaxis, Pre-op 0809 ($ Given - Prov ider: Radha Sharma, SPECIAL EDUCATION PROFESSIONAL-WEIGHT CONTROL LECTURER) heparin injection 2,400 Units 2,400 Units, Intracatheter, ONCE, 1 dose, On Fri06/24/22 at 1015 1020 ($ Admin. by Ot her Provider - Provider: Abigail Florence RN - Comment: given per Dr. Copeland) lidocaine PF (Xylocaine MPF) 1 % injection 0.5 mL 0.5 mL, Infiltration, PRE-OP ONCE, 1 dose, On Fri06/24/22 at 0700, May be used (0.5 ml locally to anesthetize prior to insertion). For patients not allergic to local anesthetics., Pre-op 0700 (Due) Continuous Medication Order 2022 06/23/2022 06/24/2022 0.9% NaCl infusion at 20 mL/hr, Intravenous, PRE-OP CONTINUOUS, Starting on Fri06/24/22 at 0700, Until Fri06/24/22 at 1245, For Dialysis or Chronic Renal Failure patients. Use 500 ml bag and micro drip tubing, Pre-op 0757 ($ New Bag/Syri nge - Provider: ECHO Hancock)0914 (Stopped - Provider: ECHO Hancock) PRN Medication Order 2022 06/23/2022 06/24/2022 0.9% NaCl injection 1-10 mL(Linked Group 1) 1-10 mL, Intracatheter, PRN, Other, peripheral line flush, Starting on Fri06/24/22 at 0651, Until Fri06/24/22 at 1245, Flush peripheral IV catheter with 1-10 mL of normal saline before and after medications and prn to clear blood from the line or to verify patency., Pre-op heparinized saline 2 units/ml infusion CONTINUOUS PRN, Starting on Fri06/24/22 at 0914, Until Fri06/24/22 at 1245, Intra-op 0914 ($ New Bag/Syri nge - Provider: Mario Iyer MD - Comment: on sterile field for prn use) lidocaine 2% (Xylocaine-MPF) - EPINEPHrine 1:200,000 injection PRN, Starting on Fri06/24/22 at 0914, Until Fri06/24/22 at 1245, Intra-op 0914 ($ Given - Prov ider: Mario Iyer MD) Oxidized Cellulose PADS PRN, Starting on Fri06/24/22 at 0856, Until Fri06/24/22 at 1245, Intra-op 0856 ($ Given - Prov ider: Mario Iyer MD) Linked Groups Order Group 1: SALINE LOCK, INSERT AND MAINTAIN (CANCELED) Routine, CONTINUOUS, Starting on Fri06/24/22 at 0700, Until Specified, Pre-op, New collection And 0.9% NaCl injection 3 mLJump to med 3 mL, Intracatheter, EVERY 8 HOURS, First dose on Fri06/24/22 at 0700, Until Discontinued, Flush peripheral IV catheter with 3 mL of normal saline every 8 hours., Pre-op And 0.9% NaCl injection 1-10 mLJump to med 1-10 mL, Intracatheter, PRN, Other, peripheral line flush, Starting on Fri06/24/22 at 0651, Until Fri06/24/22 at 1245, Flush peripheral IV catheter with 1-10 mL of normal saline before and after medications and prn to clear blood from the line or to verify patency., Pre-op documented in this encounter Care Teams Component Lab Tech Relationship Specialty Start Date End Date Kwame Berg MD PCP - General Internal Medicine 01/19/19 [place] [id number] [address] Orthopedic Surgery Orthopedic Surgery 10/13/19 documented as of this encounter
--- OUTSIDE RECORDS SUMMARY | 2024-04-25 21:19 | XMS_ITS | Encounter Summary ---
Author Organization [facility] Address [address] [place] [address] Care Team Providers Care Meter Repairer Helper Name Role Phone Kwame Berg MD Primary Care Provider [phone] Dylon Agudelo MD Unavailable [phone] Encounter Details Date Type Department Care Team (Latest Contact Info) Description 04/04/2020 Travel Social History Tobacco Use Types Packs/Day [...] COVID-19? No / Unsure 04/04/2020 9:46 AM REHABILITATION SERVICES MANAGER documented as of this encounter Functional [...] 08/23/2024 1:00 PM CDT Appointment [facility] [address] [place], [place] [id number] [place] [address] [address] [place] [address] [place] [address] [address] [place] [address] documented as of this encounter Visit Diagnoses Not on filedocumented in this encounter Care Teams Meter Repairer Helper Relationship Specialty Start Date End Date Kwame Berg MD PCP - General Internal Medicine 01/19/19 [place] [id number] [address] [place] [address] Orthopedic Surgery Orthopedic Surgery 10/13/19 documented as of this encounter
--- OUTSIDE RECORDS SUMMARY | 2024-04-25 21:19 | XMS_ITS | Encounter Summary ---
Author Organization [facility] Address [address] [place] [address] Care Team Providers Care Tongsman Name Role Phone Kwame Berg MD Primary Care Provider [phone] Dylon Agudelo MD Unavailable [phone] Encounter Details Date Type Department Care Team (Latest Contact Info) Description 08/08/2020 Travel Social History Tobacco Use Types Packs/Day [...] or suspected to have Coronavirus / COVID-19? Yes 08/08/2020 2:59 PM CDT documented as of this encounter Functional [...] 08/23/2024 1:00 PM CDT Appointment [facility] [address] [place], [place] [id number] [place] [address] [facility] [place] [address] [place] [address] [address] [place] [address] documented as of this encounter Visit Diagnoses Not on filedocumented in this encounter Care Teams Tongsman Relationship Specialty Start Date End Date Kwame Berg MD PCP - General Internal Medicine 01/19/19 [place] [address] [facility] [address] [place] [address] Orthopedic Surgery Orthopedic Surgery 10/13/19 documented as of this encounter
--- OUTSIDE RECORDS SUMMARY | 2024-04-25 21:19 | XMS_ITS | Encounter Summary ---
Author Organization [facility] Address [address] [place] [address] Care Team Providers Care Template Maker Name Role Phone Kwame Berg MD Primary Care Provider [phone] Dylon Agudelo MD Unavailable [phone] Encounter Details Date Type Department Care Team (Latest Contact Info) Description 05/17/2022 Travel Social History Tobacco Use Types Packs/Day [...] Coronavirus/COVID-19? No / Unsure 05/17/2022 8:08 AM SHOE RECONDITIONER documented as of this encounter Functional Status [...] Info) Description 08/23/2024 1:00 PM CDT Appointment [facility] [address] [place] [address] [place] [address] [facility] [address] [address] [facility] [address] [place] [address] [place] [address] [address] [address] [address] [facility] [address] [place] [address] documented as of this encounter Visit Diagnoses Not on filedocumented in this encounter Care Teams Template Maker Relationship Specialty Start Date End Date Kwame Berg MD PCP - General Internal Medicine 01/19/19 [place] [address] [facility] [address] [place] [address] Orthopedic Surgery Orthopedic Surgery 10/13/19 documented as of this encounter
--- OUTSIDE RECORDS SUMMARY | 2024-04-25 21:19 | XMS_ITS | Encounter Summary ---
Author Organization [facility] Address [address] [place], [place] [address] [address] Care Team Providers Care Weighbridge Operator Name Role Phone Kwame Berg MD Primary Care Provider Dylon Agudelo MD Unavailable [phone] Reason for Referral * Radiology Services (Routine) - Closed Specialty Diagnoses / Procedures Referred By Vivienne burrell Referred To Contact Diagnoses End stage renal disease (HCC) Procedures IR ANGIO [place] [address] [facility], [address] [address] Referral ID Status Reason Start Date Expiration Date Visits Re quested Visits Authorized [id number] Closed 05/17/2022 05/17/2023 1 1 TRANSMISSION MECHANIC Reason for Visit * Radiology Services (Routine) - Closed Specialty Diagnoses / Procedures Referred By Vivienne burrell Referred To Contact Diagnoses End stage renal disease (HCC) Procedures IR ANGIO [place] [address] [facility], [address] [place] [id number] Referral ID Status Reason Start Date Expiration Date Visits Re quested Visits Authorized [id number] Closed 05/17/2022 05/17/2023 1 1 Encounter Details Date Type Department Care Team (Latest Contact Info) Description 05/17/2022 1:49 PM AUTO TRANSMISSION MECHANIC - 05/17/2022 11:59 PM AUTO TRANSMISSION MECHANIC Hospital Encounter [facility] Vascular Services [address] [place] [address], [address] [place] [address] Discharge Disposition: Home or Self Care Social [...] Coronavirus/COVID-19? No / Unsure 05/17/2022 8:08 AM AUTO TRANSMISSION MECHANIC documented as of this encounter Last Filed Vital Signs Vital Sign Reading Time Taken Comments Blood Pressure 204/78 05/17/2022 2:39 PM AUTO TRANSMISSION MECHANIC Pulse 82 05/17/2022 2:39 PM AUTO TRANSMISSION MECHANIC Temperature - - Respiratory Rate 12 05/17/2022 2:39 PM AUTO TRANSMISSION MECHANIC Oxygen Saturation 96% 05/17/2022 2:39 PM AUTO TRANSMISSION MECHANIC Inhaled Oxygen Concentration - - Weight - - Height - - Body Mass Index - - documented in this encounter Functional Status Functional [...] Yes 01/17/2020 documented as of this encounter Discharge Summaries * Niesha Henning MD - 05/17/2022 3:02 PM CST [facility] Interventional Radiology Post-Procedure Pre-Discharge Evaluation Procedure Performed: Dialysis access declot procedure See procedure note for details. Anesthesia: Local and IV Sedation Status: Stable Complications: None Estimated blood loss: negligible Pre-discharge focused physical exam: Right upper arm arteriovenous graft access sites with clean/dry intact sterile dressing. No evidence of hemorrhage or hematoma. Vitals: 05/17/22 1425 05/17/22 1430 05/17/22 1435 05/17/22 1439 BP: (!) 183/84 (!) 182/80 (!) 154/100 (!) 204/78 Pulse: 74 77 83 82 Resp: 12 14 14 12 SpO2: 100% 100% 99% 96% Tyshawn Henning M.D. Vascular and Interventional Radiology [facility] [phone] TRANSMISSION MECHANIC documented in this encounter Discharge Instructions * Discharge Instructions* Debi Riojas RN - 05/17/2022 2:38 PM AUTO TRANSMISSION MECHANIC Advance (renal) diet as tolerated. Activity: Take it easy for the rest of the day and resume normal activities tomorrow. No driving for 24 Hours. Must have responsible adult to accompany patient for 12 hours. Post-Op Care Return to office to remove suture(s) in 1 days. No appointment needed, but we ask that you call andlet us know about what time you will be in. It is preferred you come in the morning/early afternoon. If unable to have suture(s) removed in our office, please ask your dialysis unit nurse to remove suture(s) at your next scheduled dialysis treatment. Call Dr. Moran or Dr. Henning at [phone] for: -moderate bleeding from procedure site -increased pain or drainage at procedure site -severe nausea and vomiting TRANSMISSION MECHANIC documented in this encounter Medications at Time of Discharge [...] 10/21/2022 vitamin D, ergocalciferol, (DRISDOL) 1.25 MG (72503 UT) capsule Take 1 (one) capsule by mouth every 30 days 10/18/2022 documented as of this encounter H&P Notes * Niesha Henning MD - 05/17/2022 1:46 PM CST [facility] Interventional Radiology Pre-Procedure History and Physical Date: 05/17/2022 Chief Complaint: Graft clotted History of Present Illness: Jules Mitchell is a 76 year old male with history of hypertension and end-stage renal disease who dialyzes through a right upper arm arteriovenous graft. The patient is statuspost right upper extremity fistulagram with angioplasty and stenting on 05/13/[address] Iyer. The patient states that when he presented dialysis on 05/16/2022 his graft was thrombosed and he co uld not receive treatment. No complaints of inadequate dialysis or prolonged bleeding upon decannulation this past Friday. The patient does not complain of right upper extremity swelling. Dialysis access declot procedure is requested. Past Medical History: Diagnosis Date ??? Cancer (CMS/HCC) 2000 pt unsure of type of cancer ??? Chronic kidney disease ??? Dementia (CMS/HCC) ??? ESRD (end stage renal disease) ([facility]/HCC) [facility] -t,,sat 01/25/21 ??? High blood pressure [...] PROCEDURE/SURGERY 10/20/2019 RIGHT UPPER ARM ARTERIOVENOUS FISTULA Allergies: No Known Allergies Review of Systems: Per HPI; The patient denies chest pain, shortness of breath, cough, fever. Pre-Procedure Focused Physical Assessment: General appearance: Alert, cooperative, no acute distress Heart: Regular rate and rhythm Lungs: Breath sounds normal and symmetric Extremities: Right upper arm arteriovenous graft without palpable thrill or pulsatile flow. No right upper extremity swelling/edema. Vitals: 05/17/22 1335 BP: 176/54 Pulse: 66 SpO2: 99% ASA Class: Class 3 - Severe Systemic Disease, Definite Functional Limitations Airway: Patent Assessment and Plan: Jules Mitchell is a 76 year old male with end-stage renal disease who presents for thrombosed right upper arm arteriovenous graft. Dialysis access declot procedure with moderate sedation to be performed on 05/17/22. Tyshawn Henning M.D. Vascular and Interventional Radiology [facility] [phone] TRANSMISSION MECHANIC documented in this encounter Procedure Notes * Niesha Henning MD - 05/17/2022 2:49 PM CSTAssociated Order(s): IR ANGIO AV SHUNT IMAGING VASCULAR AND INTERVENTIONAL RADIOLOGY EXAMINATION: DIALYSIS ACCESS DECLOT PROCEDURE Date: 05/17/2022 History: Jules Mitchell is a 76 year old male with history of hypertension and end- stage renal disease who dialyzes through a right upper arm arteriovenous graft. The patient is status post right upper extremity fistulagram with angioplasty and stenting on 05/13/[address] Iyer. The patient states that when he presented dialysis on 05/16/2022 his graft was thrombosed and he could not receive treatment. No complaints of inadequate dialysis or prolonged bleeding upon decannulation this past Friday. The patient does not complain of right upper extremity swelling. Dialysis access declot procedure is requested. Diagnosis code: N18.6 Fluoroscopy time: 5.39 minutes. Absorbed patient dose: 25.652 mGy. Contrast amount: 40 mL Isovue-300. Technique: The risks, benefits, and alternatives were discussed and informed consent was obtained. Prior to beginning the procedure, universal protocol was performed to confirm the patient's identityand the planned procedure. Maximum sterile barriers including cap, mask, hand hygiene, sterile gloves, sterile gown, large sterile drape, and 2% chlorhexidine for cutaneous antisepsis were used. Conscious sedation was administered using 1 mg of Versed and 75 mcg of Fentanyl at a sedation starttime of 1:59 p.m. and end time of 2:39 p.m.. The patient was monitored throughout the entirety of the procedure by the interventional nurse in addition to the physician performing the procedure. Additionally, the patient was administered 2000 units of heparin intravenously. The skin over the right upper extremity dialysis arteriovenous graft was sterilely prepped, draped,and infiltrated with 1% lidocaine. Antegrade access was obtained within the juxta anastomotic arterial graft segment using a micropuncture needle set. Next, a 0.035 stiff angled glidewire was passed c entrally using fluoroscopic guidance. Subsequently, an antegrade 8-Tajik x 4 cm Merit vascular sheath was placed. Using a 5 Tajik KA2 Merit catheter, central venography in addition to a pull-back venogram was performed. A 8 mm x 4 cm [place] balloon was used to angioplasty from the right axillary vein through the arterial limb of the graft in order to macerate the mild/moderate occlusive graft thrombus. Retrograde access was then obtained within the venous limb using a micropuncture needle set followed by the placement of a retrograde 7-Tajik x 4 cm Merit vascular sheath over a 0.035 regular angledglidewire. An [id number] Terrence thrombectomy balloon was used to remove the platelet plug from the arterial anastomosis. The Terrence was swept throughout the graft and outflow vein with multiple passes. Next, a 5 Tajik KA2 catheter was selectively advanced into the brachial artery several cm proximal to the anastomosis and angiography performed to evaluate the inflow/entire circuit. These images demonstrated stenosis at the arterial anastomosis. Next, a 6 mm x 4 cm Ultraverse balloon was used to angioplasty the arterial anastomosis stenosis. Repeat DSA images obtained from the brachial artery proximal to the anastomosis demonstrated improved brisk flow through the arteriovenous graft. As a mild fo mj nonocclusive thrombus persistent near the retrograde 7 Tajik sheath site, multiple antegrade sweeps were made with the Terrence balloon catheter. Repeat angiography demonstrated persistent nonocclusive thrombus at this location. Next, this area was angioplastied with the 8 mm [place] balloon followed by multiple antegrade Terrence sweeps. This mild nonocclusive focal thrombus at the venous limbsignificantly improved but was not fully resolved. Attention was then turned to stenting the elastic stenosis at the downstream edge of the existing venous anastomosis stent graft in order to preserve this access. A 8 mm x 6 cm flared Covera stent graft was advanced to the elastic stenosis. Repeat angiography was performed to confirm appropriate stent graft positioning. The stent graft was deployed in an overlapping fashion with the existing venous anastomosis stent. Next, the stent graft was angioplastied with the 8 mm [place] balloon. Repeat DSA images demonstrated an excellent response. The right brachiocephalic vein stenosis was then angioplastied with a 12 mm x 6 cm Lutonix drug coated balloon with a prolonged inflation of 3 minutes. Repeat angiography demonstrated an excellent response with improved brisk flow. At the end of the procedure, the sheaths were removed, pursestring sutures were placed around the entry sites with 2-0 Prolene, and hemostasis was achieved. Sterile dressings were applied. The patient tolerated the procedure well and without complications. Findings: Breathing motion artifact limits this examination. As presented, a mild/moderate amount of occlusive thrombus was present throughout the arteriovenous graft extending through the existing venous anastomosis stent graft. A 40-50% focal stenosis was present the arterial anastomosis. Multifocal 30% stenoses involve the arteriovenous graft arterial limb, mid graft, and venous limb. A 80-90%short-segment elastic right axillary vein stenosis was present immediately downstream from the existing venous anastomosis stent graft. This was the culprit lesion that led to graft thrombosis. A 70%long segment right brachiocephalic vein stenosis extends from the central right subclavian vein to the brachiocephalic confluence. There is no other focal flow-limiting stenosis of the brachial artery proximal to the anastomosis, right subclavian vein, or superior vena cava. Post angioplasty, Terrence thrombectomy, and stenting images demonstrate a patent arteriovenous graft with brisk flow. There was resolution of the previously described occlusive thrombus and multiple stenoses. IMPRESSION: Successful dialysis access declot procedure, as described above. PLAN: The dialysis access is ready for immediate use. Flow should be monitored and used to guide decisions about the need for repeat intervention. The patient's right upper extremity sutures should be removed in 1-3 days. Tyshawn Henning M.D. Vascular and Interventional Radiology [facility] [phone] CC: Patient's aquatic director: Dr. Naveen Blackman Dialysis unit: [facility] TRANSMISSION MECHANIC documented in this encounter Plan of Treatment Upcoming Encounters Date Type Department Care Team (Late st Contact Info) Description 08/23/2024 1:00 PM CDT Appointment [facility] Vascular Services [address] [place] [address], [address] [place] [address] Maroi Iyer MD [address] [place] [address] [place] [id number] [place] [address] [facility] [address] [place] [id number] documented as of this encounter Procedures Procedure Name Priority Date/Time Associated Diagnosis Comments IR ANGIO AV SHUNT IMAGING Routine 05/17/2022 2:44 PM AUTO TRANSMISSION MECHANIC End stage renal disease (HCC) documented in this encounter Results * IR ANGIO AV SHUNT IMAGING (05/17/2022 2:44 PM AUTO TRANSMISSION MECHANIC) Anatomical Region Laterality Modality Lower Extremity, Upper Extremity, Chest X-Ray Angiography Narrative 05/17/2022 2:49 PM AUTO TRANSMISSION MECHANIC Niesha Henning MD ? 05/17/2022 ??3:02 PM VASCULAR AND INTERVENTIONAL RADIOLOGY EXAMINATION: DIALYSIS ACCESS DECLOT PROCEDURE Date: 05/17/2022 History: Jules Mitchell is a 76 year old male with history of hypertension and end-stage renal disease who dialyzes through a right upper arm arteriovenous graft. ??The patient is status post right upper extremity fistulagram with angioplasty and stenting on 05/13/[address] Iyer. ??The patient states that when he presented dialysis on 05/16/2022 his graft was thrombosed and he could not receive treatment. ??No complaints of inadequate dialysis or prolonged bleeding upon decannulation this past Friday. ??The patient does not complain of right upper extremity swelling. ??Dialysis access declot procedure is requested. Diagnosis code: N18.6 Fluoroscopy time: ??5.39 minutes. Absorbed patient dose: ??25.652 mGy. Contrast amount: ??40 mL Isovue-300. Technique: The risks, benefits, and alternatives were discussed and informed consent was obtained. ??Prior to beginning the procedure, universal protocol was performed to confirm the patient's identity and the planned procedure. ??Maximum sterile barriers including cap, mask, hand hygiene, sterile gloves, sterile gown, large sterile drape, and 2% chlorhexidine for cutaneous antisepsis were used. Conscious sedation was administered using 1 mg of Versed and 75 mcg of Fentanyl at a sedation start time of 1:59 p.m. and end time of 2:39 p.m.. ??The patient was monitored throughout the entirety of the procedure by the interventional nurse in addition to the physician performing the procedure. ??Additionally, the patient was administered 2000 units of heparin intravenously. The skin over the right upper extremity dialysis arteriovenous graft was sterilely prepped, draped, and infiltrated with 1% lidocaine. ??Antegrade access was obtained within the juxta anastomotic arterial graft segment using a micropuncture needle set. ??Next, a 0.035 stiff angled glidewire was passed centrally using fluoroscopic guidance. ??Subsequently, an antegrade 8-Tajik x 4 cm Merit vascular sheath was placed. ??Using a 5 Tajik KA2 Merit catheter, central venography in addition to a pull-back venogram was performed. A 8 mm x 4 cm [place] balloon was used to angioplasty from the right axillary vein through the arterial limb of the graft in order to macerate the mild/moderate occlusive graft thrombus. ?? Retrograde access was then obtained within the venous limb using a micropuncture needle set followed by the placement of a retrograde 7-Tajik x 4 cm [employer] vascular sheath over a 0.035 regular angled glidewire. An [id number] Terrence thrombectomy balloon was used to remove the platelet plug from the arterial anastomosis. ??The Terrence was swept throughout the graft and outflow vein with multiple passes. Next, a 5 Tajik KA2 catheter was selectively advanced into the brachial artery several cm proximal to the anastomosis and angiography performed to evaluate the inflow/entire circuit. ?? These images demonstrated stenosis at the arterial anastomosis. ?? Next, a 6 mm x 4 cm Ultraverse balloon was used to angioplasty the arterial anastomosis stenosis. ??Repeat DSA images obtained from the brachial artery proximal to the anastomosis demonstrated improved brisk flow through the arteriovenous graft. ??As a mild focal nonocclusive thrombus persistent near the retrograde 7 Tajik sheath site, multiple antegrade sweeps were made with the Terrence balloon catheter. ??Repeat angiography demonstrated persistent nonocclusive thrombus at this location. ??Next, this area was angioplastied with the 8 mm [place] balloon followed by multiple antegrade Terrence sweeps. ??This mild nonocclusive focal thrombus at the venous limb significantly improved but was not fully resolved. ?? Attention was then turned to stenting the elastic stenosis at the downstream edge of the existing venous anastomosis stent graft in order to preserve this access. ??A 8 mm x 6 cm flared Covera stent graft was advanced to the elastic stenosis. ??Repeat angiography was performed to confirm appropriate stent graft positioning. ?? The stent graft was deployed in an overlapping fashion with the existing venous anastomosis stent. ??Next, the stent graft was angioplastied with the 8 mm [place] balloon. ??Repeat DSA images demonstrated an excellent response. The right brachiocephalic vein stenosis was then angioplastied with a 12 mm x 6 cm Lutonix drug coated balloon with a prolonged inflation of 3 minutes. ??Repeat angiography demonstrated an excellent response with improved brisk flow. At the end of the procedure, the sheaths were removed, pursestring sutures were placed around the entry sites with 2-0 Prolene, and hemostasis was achieved. ??Sterile dressings were applied. ??The patient tolerated the procedure well and without complications. Findings: ??Breathing motion artifact limits this examination. ??As presented, a mild/moderate amount of occlusive thrombus was present throughout the arteriovenous graft extending through the existing venous anastomosis stent graft. ??A 40-50% focal stenosis was present the arterial anastomosis. ??Multifocal 30% stenoses involve the arteriovenous graft arterial limb, mid graft, and venous limb. ??A 80-90% short-segment elastic right axillary vein stenosis was present immediately downstream from the existing venous anastomosis stent graft. ??This was the culprit lesion that led to graft thrombosis. ??A 70% long segment right brachiocephalic vein stenosis extends from the central right subclavian vein to the brachiocephalic confluence. ??There is no other focal flow-limiting stenosis of the brachial artery proximal to the anastomosis, right subclavian vein, or superior vena cava. Post angioplasty, Terrence thrombectomy, and stenting images demonstrate a patent arteriovenous graft with brisk flow. ??There was resolution of the previously described occlusive thrombus and multiple stenoses. IMPRESSION: Successful dialysis access declot procedure, as described above. PLAN: ??The dialysis access is ready for immediate use. ??Flow should be monitored and used to guide decisions about the need for repeat intervention. ??The patient's right upper extremity sutures should be removed in 1-3 days. Tyshawn Henning M.D. Vascular and Interventional Radiology [facility] [phone] CC: Patient's aquatic director: Dr. Naveen Blackman Dialysis unit: [facility] Naveen Blackman MD IR ORDERABLES documented in this encounter Visit Diagnoses Diagnosis End stage renal disease (HCC) End stage renal disease documented in this encounter Administered Medications Inactive Administered Medications - up to 3 most recent administrations Medication Order MAR Action Action Date Dose Rate Site fentaNYL (PF) (Sublimaze) injection 25-50 mcg 25-50 mcg, Intravenous, INTRA-PROCEDURE MULTIPLE, Starting on Fri05/17/22 at 1338, Until 05/18/22 at 0141, Administer every 5 minutes during [...] documented in the MAR., Intra-procedure (IR) $ Admin. by Other Provider 05/17/2022 2:24 PM AUTO TRANSMISSION MECHANIC 25 mcg $ Admin. by Other Provider 05/17/2022 1:59 PM AUTO TRANSMISSION MECHANIC 50 mcg heparin injection 500-5,000 Units 500-5,000 Units, Intravenous, INTRA-PROCEDURE MULTIPLE, Starting on Fri05/17/22 at 1338, Until 05/18/22 at 0141, Administer as needed during procedure., Intra-procedure (IR) $ Admin. by Other Provider 05/17/2022 2:00 PM AUTO TRANSMISSION MECHANIC 2,000 Units heparinized saline 2 units/ml infusion 1,000 mL, Intravenous, INTRA-PROCEDURE MULTIPLE, Starting on Fri05/17/22 at 1338, Until 05/18/22 at 0141, Intra-procedure (IR) $ New Bag/Syringe 05/17/2022 1:56 PM AUTO TRANSMISSION MECHANIC 1,000 mL iopamidol (Isovue 300) 61 % contrast Intravenous, INTRA-PROCEDURE MULTIPLE, Starting on Fri05/17/22 at 1338, Until 05/18/22 at 0141, Intra/Post-procedure $ Given - Contrast 05/17/2022 1:55 PM AUTO TRANSMISSION MECHANIC 30 mL lidocaine PF (Xylocaine MPF) 1 % injection Infiltration, INTRA-PROCEDURE MULTIPLE, Starting on Fri05/17/22 at 1338, Until 05/18/22 at 0141, Intra-procedure (IR) $ Admin. by Other Provider 05/17/2022 1:56 PM AUTO TRANSMISSION MECHANIC 50 mg midazolam (Versed) injection 0.5-2 mg 0.5-2 mg, Intravenous, INTRA-PROCEDURE MULTIPLE, Starting on Fri05/17/22 at 1338, Until 05/18/22 at 0141, Administer every 5 minutes during procedure as needed for sedation. Dose to be determined by physician., Intra-procedure (IR) $ Admin. by Other Provider 05/17/2022 2:04 PM AUTO TRANSMISSION MECHANIC 0.5 mg $ Admin. by Other Provider 05/17/2022 1:59 PM AUTO TRANSMISSION MECHANIC 0.5 mg documented in this encounter Care Teams Weighbridge Operator Relationship Specialty Start Date End Date Kwame Berg MD PCP - General Internal Medicine 01/19/19 [place] [id number] [id number] Orthopedic Surgery Orthopedic Surgery 10/13/19 documented as of this encounter
--- OUTSIDE RECORDS SUMMARY | 2024-04-25 21:19 | XMS_ITS | Encounter Summary ---
Author Organization [facility] Address [address] [place] [address] Care Team Providers Care Gis Geographer Name Role Phone Kwame Berg MD Primary Care Provider [phone] Dylon Agudelo MD Unavailable Encounter Details Date Type Department Care Team (Latest Contact Info) Description 04/03/2020 Travel Social History Tobacco Use Types Packs/Day [...] have Coronavirus / COVID-19? No / Unsure 04/03/2020 2:36 PM ELECTRIC DEICER INSPECTOR documented as of this encounter Functional Status [...] Description 08/23/2024 1:00 PM CDT [facility]ointment [facility] [address] [facility] [address] [place], [place] [id number] [place] [address] [facility] [address] [place] [address] [place] [address] [facility] [address] [place] [address] documented as of this encounter Visit Diagnoses Not on filedocumented in this encounter Care Teams Gis Geographer Relationship Specialty Start Date End Date Kwame Berg MD PCP - General Internal Medicine 01/19/19 [place] [address] [facility] [address] [place] [address] Orthopedic Surgery Orthopedic Surgery 10/13/19 documented as of this encounter
--- OUTSIDE RECORDS SUMMARY | 2024-04-25 21:19 | XMS_ITS | Encounter Summary ---
Author Organization [facility] Address [address] [place] [address] Care Team Providers Care Lab Engineer Name Role Phone Kwame Berg MD Primary Care Provider [phone] Dylon Agudelo MD Unavailable [phone] Reason for Visit * Auth/Cert (Routine) Specialty Diagnoses / Procedures Referred By Contac t Referred To Contact Procedures INSERTION GRAFT ARTERIO-VENOUS (AV) ARM Referral ID Status Reason Start Date Expiration Date Visits Re quested Visits Authorized [id number] 1 1 Encounter Details Date Type Department Care Team (Late st Contact Info) Description 06/24/2022 8:00 AM CLINICAL PHLEBOTOMIST - 06/24/2022 9:49 AM CLINICAL PHLEBOTOMIST Surgery [facility] - Perioperative Surgery [address] [place], [place] [id number] [place] [address] [facility] [address] [place] [phone] LEFT UPPER ARM ARTERIO-VENOUS (AV) FISTULA Surgery Details Date/Time Status Location OR Service Patient Class Case Class Case Type Trauma Case? 06/24/2022 8:00 AM Posted [facility] MAIN OR OR 03 Vascular Surgery Day Care Elective > 5 days Panel 1 Procedure LRB Anes Op Region Wound Class Comments LEFT UPPER ARM ARTERIO-VENOUS (AV) FISTULA Left MAC Arm Clean Surgeon Surgeon Role [...] Coronavirus/COVID-19? No / Unsure 05/17/2022 8:08 AM CLINICAL PHLEBOTOMIST documented as of this encounter Last Filed Vital Signs Vital Sign Reading Time Taken Comments Blood Pressure 95/60 06/24/2022 9:45 AM CLINICAL PHLEBOTOMIST Pulse 92 06/24/2022 9:25 AM CLINICAL PHLEBOTOMIST Temperature 36.2 ??C (97.1 ??F) 06/24/2022 9:25 AM CS T Respiratory Rate 16 06/24/2022 9:25 AM CLINICAL PHLEBOTOMIST Oxygen Saturation 100% 06/24/2022 9:45 AM CLINICAL PHLEBOTOMIST Inhaled Oxygen Concentration - - Weight 59.4 kg (131 lb) 06/24/2022 7:29 AM CLINICAL PHLEBOTOMIST Height 157.5 cm (5' 2) 06/24/2022 7:29 AM CLINICAL PHLEBOTOMIST Body Mass Index 23.96 06/24/2022 7:29 AM CLINICAL PHLEBOTOMIST documented in this encounter Functional Status Functional [...] every day after a meal. HYDROcodone-acetaminophe n ([place]) 5-325 MG tabletIndications:Encoun ter regarding vascular access [...] 10/21/2022 vitamin D, ergocalciferol, (DRISDOL) 1.25 MG (56014 UT) capsule Take 1 (one) capsule by mouth every 30 days 10/18/2022 documented as of this encounter Progress Notes * Abigail Florence RN - 06/24/2022 11:[address] Iyer at bedside. Pt ok for discharge home. ICAL PHLEBOTOMIST documented in this encounter H&P Notes * [...] ESRD (end stage renal disease) (CMS/HCC) ? [facility],sat as of 05/27/22 ??? High blood pressure [...] for surgical planning. ?? Impression/Plan ESRD, needing intermodal dispatcher dialysis access. Will plan left upper arm [...] ESRD (end stage renal disease) (CMS/HCC) ? [facility] -,,sat as of 05/27/22 ??? High blood pressure ? Pure hypercholesterolemia ? Stroke (CMS/HCC) ? per pt ?? ICAL PHLEBOTOMIST documented in this encounter OR Notes * OR Surgeon - Mario Iyer MD - 06/24/2022 9:21 AM CST [facility] OPERATIVE REPORT PATIENT: Jules Mitchell MR#: [id number] ADMIT DATE: 06/24/2022 6:43 AM [facility] # [id number] DATE OF SURGERY: 06/24/2022 : 1945 PHYSICIAN: [...] ahead with today's surgery. Mario Iyer MD ICAL PHLEBOTOMIST documented in this encounter Plan of Treatment Upcoming Encounters Date Type Department Care Team (Late st Contact Info) Description 08/23/2024 1:00 PM CDT Appointment [facility] Vascular Services [address] [facility], [address] [place] [address] [place] [address] [facility] [address] [place] [phone] [place] [address] [facility] [address] [place] [address] documented as of this encounter Procedures Procedure Name Priority Date/Time Associated Diagnosis Comments BLOOD GAS+COOX+ELECTROLYTES+ METAB VENOUS Routine 06/24/2022 7:48 AM CLINICAL PHLEBOTOMIST CREATION ARTERIOVENOUS (AV) FISTULA DIRECT 06/24/2022 7:46 AM CLINICAL PHLEBOTOMIST documented in this encounter Results * (ABNORMAL) BLOOD GAS+COOX+ELECTROLYTES+METAB VENOUS (06/24/2022 7:48 AM CLINICAL PHLEBOTOMIST) pH Venous 7.44(H) 7.32 - 7.42 pH 06/24/2022 7:48 AM CLINICAL PHLEBOTOMIST [facility] pO2 Venous 43(H) 35 - 40 mmHg 06/24/2022 7:48 AM CLINICAL PHLEBOTOMIST [facility] RESP [facility] pCO2 Venous 48 40 - 50 mmHg 06/24/2022 7:48 AM CLINICAL PHLEBOTOMIST [facility] HCO3 Venous 32.6(H) 24 - 26 mmol/L 06/24/2022 7:48 AM CLINICAL PHLEBOTOMIST [facility] RESP [facility] Base Excess Venous 7.5(H) -2.0 - 2.0 mmol/L 06/24/2022 7:48 AM CLINICAL PHLEBOTOMIST [facility] Oxyhemoglobin Venous 70.6 % 05/30 7:48 AM CLINICAL PHLEBOTOMIST [facility]P [facility] Deoxyhemoglobin (HHB) Venous % 27.4 % 06/24/2022 7:48 AM CLINICAL PHLEBOTOMIST [facility] Methemoglobin <0.8 0.0 - 2.0 % 06/24/2022 7:48 AM CLINICAL PHLEBOTOMIST [facility] Carboxyhemoglobin 2.0 0.0 - 2.0 % 06/24/2022 7:48 AM CLINICAL PHLEBOTOMIST [facility] O2 Content Venous 9.5 ml/dL 023 7:48 AM CLINICAL PHLEBOTOMIST [facility] Hemoglobin by COOX 9.5(L) 12.0 - 17.6 g/dL 06/24/2022 7:48 AM CLINICAL PHLEBOTOMIST [facility] O2 Saturation Venous 72 >=70 % 05/30 7:48 AM CLINICAL PHLEBOTOMIST [facility] Sodium Whole Blood 138 135 - 145 mmol/L 06/24/2022 7:48 AM CLINICAL PHLEBOTOMIST [facility] Potassium Whole Blood 4.8 3.5 - 5.5 mmol/L 06/24/2022 7:48 AM CLINICAL PHLEBOTOMIST [facility] Chloride WB 97(L) 101 - 111 mmol/L 06/24/2022 7:48 AM CLINICAL PHLEBOTOMIST [facility] Calcium Ionized 1.08 mmol/L 7:48 AM CLINICAL PHLEBOTOMIST [facility] Ionized Calcium pH Adjusted 1.10(L) 1.19 - 1.34 mmol/L 06/24/2022 7:48 AM CLINICAL PHLEBOTOMIST [facility] Anion Gap (AG) Arterial 13 8 - 18 mmol/L 06/24/2022 7:48 AM CLINICAL PHLEBOTOMIST [facility] Glucose WB 90 70 - 105 mg/dL 06/24/2022 7:48 AM CLINICAL PHLEBOTOMIST [facility] Lactic Acid Whole Blood 1.0 <=2.0 mmol/L 06/24/2022 7:48 AM CLINICAL PHLEBOTOMIST [facility] Blood BLOOD SPECIMEN / Unknown 06/24/2022 7:48 AM CLINICAL PHLEBOTOMIST 06/24/2022 7:48 AM CLINICAL PHLEBOTOMIST Narrative [facility] RESP [facility] - 06/24/2022 7:48 AM CLINICAL PHLEBOTOMIST Test performed by a Licensed Healthcare Provider Mario Iyer MD LAB - BLOOD GASES ORDERABLES [facility] [id number] [phone] documented in this encounter Visit Diagnoses Not [...] Pre-op $ New Bag/Syringe 06/24/2022 7:57 AM CLINICAL PHLEBOTOMIST 0.9% NaCl injection 1-10 mL 1-10 mL, [...] Admin. by Other Provider 06/24/2022 10:20 AM CLINICAL PHLEBOTOMIST 2,400 Units heparinized saline 2 units/ml infusion CONTINUOUS PRN, Starting on Fri06/24/22 at 0914, Until Fri06/24/22 at 1245, Intra-op $ New Bag/Syringe 06/24/2022 9:14 AM CLINICAL PHLEBOTOMIST 1,000 mL Operative Site lidocaine 2% (Xylocaine-MPF) - EPINEPHrine 1:200,000 injection PRN, Starting on Fri06/24/22 at 0914, Until Fri06/24/22 at 1245, Intra-op $ Given 06/24/2022 9:14 AM CLINICAL PHLEBOTOMIST 17 mL Operative Site Oxidized Cellulose PADS PRN, Starting on Fri06/24/22 at 0856, Until Fri06/24/22 at 1245, Intra-op $ Given 06/24/2022 8:56 AM CLINICAL PHLEBOTOMIST 1 Each Operative Site Additional Administered Medications Medication Order MAR Action Action Date Dose Rate Site PPD Given 05/16/2020 PPD Given 08/15/2020 PPD Given 08/14/2021 documented in this encounter Active and Recently Administered Medications Times are shown in CLINICAL PHLEBOTOMIST. Scheduled Medication Order 2022 06/23/2022 06/24/2022 0.9% [...] must be documented in the MAR., Pre-op 07 (Due) ceFAZolin (Ancef) 2,000 mg in 50 ml IVPB (COMPLETED) 2,000 mg (2 g), at 100 mL/hr, Intravenous, ONCE, 1 dose, On Fri06/24/22 at 0700, Administer 30 minutes prior to surgical incision., Indication for anti-infective therapy: Surgical prophylaxis, Pre-op 0809 ($ Given - Prov ider: ECHO Hancock) heparin injection 2,400 Units 2,400 Units, Intracatheter, [...] patients not allergic to local anesthetics., Pre-op 07 (Due) Continuous Medication Order 2022 06/23/2022 06/24/2022 0.9% NaCl infusion at 20 mL/hr, Intravenous, PRE-OP CONTINUOUS, Starting on Fri06/24/22 at 0700, Until Fri06/24/22 at 1245, For Dialysis or Chronic Renal Failure patients. Use 500 ml bag and micro drip tubing, Pre-op 0757 ($ New Bag/Syri nge - Provider: ECHO Hancock)0914 (Stopped - Provider: Radha A Mormol, SUPERVISOR PUBLIC MESSAGE SERVICE-RN UTILIZATION MANAGEMENT UM) PRN Medication Order 2022 06/23/2022 06/24/2022 0.9% [...] Pre-op documented in this encounter Care Teams Lab Engineer Relationship Specialty Start Date End Date Kwame Berg MD PCP - General Internal Medicine 01/19/19 [place] [address] [address] Orthopedic Surgery Orthopedic Surgery 10/13/19 documented as of this encounter
--- OUTSIDE RECORDS SUMMARY | 2024-04-25 21:19 | XMS_ITS | Encounter Summary ---
Author Organization [facility] Address [address] [place] [address] Care Team Providers Care Clinical Services Specialist Name Role Phone Kwame Berg MD Primary Care Provider Dylon Agudelo MD Unavailable [phone] Reason for Visit * Reason Onset Date Comments Therapy 04/05/2020 Encounter Details Date Type Department Care Team (Late st Contact Info) Description 04/05/2020 Telephone [facility] Orthopedics [address] [address] [place] [address] [address] Therapy Social History Tobacco Use Types Packs/Day Years [...] COVID-19? No / Unsure 04/04/2020 9:46 AM DOUGHNUT FRYER documented as of this encounter Functional Status [...] encounter Miscellaneous Notes * Telephone Encounter - Nico Jack - 04/12/2020 9:31 AM CST Left vm on recorder for Martínez to return my call HNUT FRYER * Telephone Encounter - Irene Jeffries - 04/05/2020 4:09 PM CST Any restrictions regarding therapy after surgery [facility] day [facility] HNUT FRYER documented in this encounter Plan of Treatment Upcoming Encounters Date Type Department Care Team (Late st Contact Info) Description 08/23/2024 1:00 PM CDT Appointment [facility] Vascular Services [address] [facility], [address] [place] [address] [place] [address] [facility] [address] [place] [address] [place] [address] [facility] [address] [place] [address] documented as of this encounter Visit Diagnoses Not on filedocumented in this encounter Care Teams Clinical Services Specialist Relationship Specialty Start Date End Date Kwame Berg MD PCP - General Internal Medicine 01/19/19 [place] [address] [facility] [address] [place] [phone] Orthopedic Surgery Orthopedic Surgery 10/13/19 documented as of this encounter
--- OUTSIDE RECORDS SUMMARY | 2024-04-25 21:19 | XMS_ITS | Encounter Summary ---
Author Organization [facility] Address [facility] [facility] [place] [address] Care Team Providers Care Leather Stretcher Name Role Phone Kwame Berg MD Primary Care Provider [phone] Dylon Agudelo MD Unavailable [phone] Encounter Details Date Type Department Care Team (Latest Contact Info) Description 07/28/2020 9:10 AM CDT - 07/28/2020 11:59 PM CDT Hospital Encounter [facility] - Radiology [address] [place], [place] [id number] [place] [address] [facility] [address] [place] [address] Discharge Disposition: Home or Self [...] UNIT/ML injectionIndications :ESRD (end stage renal disease) ([facility]) Inject 4,000 Units subcutaneously every [...] Info) Description 08/23/2024 1:00 PM CDT Appointment [facility] Vascular Services [address] [facility], [address] [place] [address] [place] [address] [facility] [address] [place] [phone] [place] [address] [facility] [address] [place] [address] documented as of this encounter Procedures Procedure Name Priority Date/Time Associated Diagnosis Comments XR WRIST LEFT 3VW OR MORE Routine 07/28/2020 9:21 AM CDT Left forearm pain documented in this encounter Results * XR WRIST LEFT 3VW OR MORE [...] Osmany Rouse on 07/28/2020 at 2:27 PM S. Kalpesh Pastor MD DIAGNOSTIC IMAGING O RDERAMAXINE documented in this encounter Visit Diagnoses Diagnosis Left forearm pain Pain in limb documented in this encounter Care Teams Leather Stretcher Relationship Specialty Start Date End Date Kwame Berg MD PCP - General Internal Medicine 01/19/19 [place] [address] [phone] Orthopedic Surgery Orthopedic Surgery 10/13/19 documented as of this encounter
--- OUTSIDE RECORDS SUMMARY | 2024-04-25 21:19 | XMS_ITS | Encounter Summary ---
Author Organization [facility] Address [facility] [place] [address] Care Team Providers Care Tire Setter Name Role Phone Kwame Berg MD Primary Care Provider [phone] Dylon Agudelo MD Unavailable [phone] Reason for Visit * Reason Onset Date Comments Question 03/20/2020 Encounter Details Date Type Department Care Team (Late st Contact Info) Description 03/20/2020 Telephone [facility] - Surgery [address] [address] Kayli Mijares, FIELD PIPE LINES SUPERVISOR-PERSONNEL RECRUITER [address] [address] Question Social History Tobacco Use Types Packs/Day [...] COVID-19? No / Unsure 03/03/2020 10:05 AM 3D MODELER documented as of this encounter Functional Status [...] encounter Miscellaneous Notes * Telephone Encounter - Kayli Mijares APRN-PERSONNEL RECRUITER - 03/20/2020 3:12 PM 3D MODELER Wild was advised swelling is normal after surgery. He was instructed on proper elevation above the heart. He voiced his understanding. 3D MODELER * Telephone Encounter - Michelle Iyer - 03/20/2020 10:06 AM CST Patients arm is swollen from the fistula that they put in on 03-15-2020. Is there something that the patient should be doing for the swelling? Please call Wild Mitchell at [phone] 3D MODELER documented in this encounter Plan of Treatment Upcoming Encounters Date Type Department Care Team (Late st Contact Info) Description 08/23/2024 1:00 PM CDT Appointment [facility] Health Vascular Services [address] [facility], [address] [place] [address] [place] [address] [facility] [address] [place] [address] [place] [address] [facility] [address] [place] [address] documented as of this encounter Visit Diagnoses Not on filedocumented in this encounter Care Teams Tire Setter Relationship Specialty Start Date End Date Kwame Berg MD PCP - General Internal Medicine 01/19/19 [place] [address] [facility] [address] [place] [address] Orthopedic Surgery Orthopedic Surgery 10/13/19 documented as of this encounter
--- OUTSIDE RECORDS SUMMARY | 2024-04-25 21:19 | XMS_ITS | Encounter Summary ---
Author Organization [facility] Address [address] [place] [address] Care Team Providers Care Computer Repair Instructor Name Role Phone Kwame Berg MD Primary Care Provider [phone] Dylon Agudelo MD Unavailable [phone] Reason for Referral * Radiology Services (Routine) - Closed Specialty Diagnoses / Procedures Referred By Contac t Referred To Contact Diagnoses Encounter regarding vascular access for dialysis for end-stage renal disease (HCC) Procedures [place] [address] [facility] [address] [place] [phone] Referral ID Status Reason Start Date Expiration Date Visits Re quested Visits Authorized [id number] Closed 06/09/2020 06/09/2021 1 1 Reason for Visit * Radiology Services (Routine) - Closed Specialty Diagnoses / Procedures Referred By Contac t Referred To Contact Diagnoses ESRD (end stage renal disease) (HCC) Procedures IR [place] [id number] [facility] [address] [place] [phone] Referral ID Status Reason Start Date Expiration Date Visits Re quested Visits Authorized [id number] Closed 04/10/2020 04/10/2021 1 1 Encounter Details Date Type Department Care Team (Latest Contact Info) Description 09/13/2020 11:13 AM CDT - 09/13/2020 11:59 PM CDT Hospital Encounter [facility] [address] [place] [address], [address] [place] [phone] Tyshawn Heller MD [address] [place] [phone] Haja Marrufo MD Halverson, Lewis C, MD [address] [place], [place] [phone] [place] [address] [facility] [address] [place] [phone] Discharge Disposition: Home or Self Care Social [...] Sign Reading Time Taken Comments Blood Pressure 128/56 09/13/2020 12:30 PM CDT Pulse 69 09/13/2020 12:30 PM CDT Temperature 36.9 ??C (98.4 ??F) 09/13/2020 11:30 AM C DT Respiratory Rate 13 09/13/2020 12:30 PM CDT Oxygen Saturation 98% 09/13/2020 12:30 PM CDT Inhaled Oxygen Concentration - - Weight - [...] same time every day after a meal. amLODIPine (NORVASC) 5 MG tablet Take 5 mg by mouth once daily 01/16/2022 dilTIAZem coated beads 24hr (CARDIZEM CD) 120 MG capsule Take 1 capsule by mouth once daily Do not crush or chew. 30 capsule 01/17/2020 01/16/2022 docusate sodium (COLACE) 100 MG capsule Take 100 mg by mouth once daily as needed 05/28/2019 01/16/2022 polyethylene glycol 3350 (MIRALAX) 17 g packet Take 17 (seventeen) g by mouth once daily as needed 08/09/2019 08/04/2023 sodium bicarbonate 325 MG tablet Take 1 (one) tablet by mouth once daily 07/05/2019 10/21/2022 vitamin D, ergocalciferol, (DRISDOL) 1.25 MG (06631 UT) capsule Take 1 (one) capsule by mouth every 30 days 10/18/2022 documented as of this encounter Progress Notes * Danisha Roman RN - 09/13/2020 11:37 AM CDT Patient has right upper arm access that feels pulsatile throughout, center voiced patient is havingprolonged bleeding post tx but nephew thinks its due to his daily use of Eliquis. documented in this encounter H&P Notes * Tyshanw Heller MD - 09/13/2020 11:47 AM CDT INVASIVE PROCEDURE H&P / SEDATION PLAN OF CARE Chief Complaint / History of Present Illness: ESRD, pulsatility, prolonged bleeding Additional Diagnosis: Encounter regarding vascular access for dialysis for end- stage renal disease [N18.6, Z99.2] Procedure Planned: RUE AV graft injection w poss airline captain/stent/declot Past Medical History Illnesses: Past Medical History: Diagnosis Date ??? Cancer 2000 pt unsure of type of cancer ??? Chronic kidney disease ??? ESRD (end stage renal disease) Evelyn [place] [phone] -t,th,sat 04/10/2020 ??? High blood pressure ??? Pure hypercholesterolemia ??? Stroke per pt EXAM: BP 141/64 Pulse 71 Temp 98.4 ??F (36.9 ??C) Resp 9 SpO2 100% General appearance: alert, cooperative, no distress Heart: Regular rate Lungs: breath sounds normal; no audible wheezes Extremities: no cyanosis or edema Possible Sedation: Fentanyl, Versed, 1% plain lidocaine Expected Level: Moderate Sedation Indication: Sedation is potentially required to allow for performance of procedure. Consent: Risks, benefits and alternatives were discussed with patient and consent for procedure wasobtained. PO Intake: Liquids > 2 hours, Light Meal > 2 hours and Regular Meal > 8 hours ASA Class: Class 3 - Severe Systemic Disease, Definite Functional Limitations Airway: Patent Monitoring: heart rate, etl architect, continuous pulse oximetry, frequent blood pressure checks,level of consciousness, IV access, constant attendance by RN until patient recovered and intubationand emergency airway equipment available. documented in this encounter Procedure Notes * Tyshawn Heller MD - 09/13/2020 12:28 PM CDTAssociated Order(s): IR ANGIO AV SHUNT IMAGING Surgeon: Tyshawn Heller MD Pre-Procedure diagnosis: ESRD Time out and final pre-procedure assessment completed immediately prior to start of procedure. Medications reviewed. Post-Procedure diagnosis: Same Anesthesia: Local and IV Sedation Technical Procedure Performed: 1) right upper extremity AV graft fistulogram with angioplasty 2) central venous angioplasty Findings: After informed consent was obtained patient was placed supine on the angiogram table and the right upper extremity was prepped and draped in the usual sterile fashion. Anesthesia just beyond the arterial anastomosis was obtained with lidocaine. The graft was punctured in an antegrade manner with a micropuncture needle and a 0.018 wire was introduced. The needle was exchanged for a transitional sheath. Contrast was injected which demonstrated patency of the graft however there is recurrent high-grade stenosis at the venous anastomosis. There is also recurrent high-grade stenosis noted at the junction of the superior vena cava and subclavian vein with reflux into the right internal jugular vein and chest wall veins. The transitional sheath was then exchanged for a 7 Scottish short dialysis sheath. Using a ShareWithUpe catheter a 0.035 Bentson wire was passed into the right atrium. Angioplasty of the central venous structures was then performed using an 12 mm and then 14 mm diameter balloon. After the inflation with the14 mm diameter balloon repeat contrast injection demonstrated significant improvement with significantly less retrograde reflux into the neck and chest wall veins. There is mild rebound noted. Angioplasty of the venous anastomosis was then performed using an 8 mm and 9 mm x 4 cm diameter balloon. Repeat contrast injection demonstrated significant improvement with no significant residual stenosis. Reflux injection while the balloon was inflated demonstrated a widely patent arterial anastomosis. The sheath was removed and hemostasis was obtained with manual compression. The patient tolerated the procedure well. 25 cc of Isovue-300 use, 3 min and 21 sec of fluoroscopy Moderate IV conscious sedation was administered using 0.5 mg of Versed and 100 mcg of fentanyl. Thepatient was independently monitored by registered nurse for 15 min using automated blood pressure, EKG and pulse oximetry. There were no complications. Disposition: Home Status: Stable Drain or Pack: None Additional information/Complications: None Estimated blood loss: negligible Specimen(s) removed: No Specimen During the post-procedure debrief all intra-procedure verbal order medications ordered by the proceduralist were reviewed and authenticated. documented in this encounter Plan of Treatment Upcoming Encounters Date Type Department Care Team (Late st Contact Info) Description 08/23/2024 1:00 PM CDT Appointment [facility] [address] [place] [address], [place] [phone] [place] [address] [facility] [address] [place] [phone] [place] [address] [facility] [address] [place] [address] documented as of this encounter Procedures Procedure Name Priority Date/Time Associated Diagnosis Comments CARDIAC RHYTHM STRIP ORDER 09/16/2020 1:03 AM CDT IR ANGIO AV SHUNT IMAGING Routine 09/13/2020 12:26 PM CDT Encounter regarding vascular access for dialysis for end-stage renal disease (HCC) documented in this encounter Results * CARDIAC RHYTHM STRIP ORDER (09/16/2020 1:03 AM CDT) Narrative 09/16/2020 1:03 AM CDT Ordered by an unspecified provider. Scanned Document CARDIAC SERVICES ORD ERABLES * IR ANGIO AV SHUNT IMAGING (09/13/2020 12:26 PM CDT) Anatomical Region Laterality Modality Lower Extremity, Upper Extremity, Chest X-Ray Angiography Narrative 09/13/2020 12:28 PM CDT Tyshawn Heller MD ? 09/13/2020 12:33 PM Surgeon: Tyshawn Heller MD Pre-Procedure diagnosis: ESRD Time out and final pre-procedure assessment completed immediately prior to start of procedure. Medications reviewed. Post-Procedure diagnosis: Same Anesthesia: Local and IV Sedation Technical Procedure Performed: ??1) right upper extremity AV graft fistulogram with angioplasty 2) central venous angioplasty Findings: ??After informed consent was obtained patient was placed supine on the angiogram table and the right upper extremity was prepped and draped in the usual sterile fashion. ??Anesthesia just beyond the arterial anastomosis was obtained with lidocaine. ??The graft was punctured in an antegrade manner with a micropuncture needle and a 0.018 wire was introduced. ??The needle was exchanged for a transitional sheath. ??Contrast was injected which demonstrated patency of the graft however there is recurrent high-grade stenosis at the venous anastomosis. ??There is also recurrent high-grade stenosis noted at the junction of the superior vena cava and subclavian vein with reflux into the right internal jugular vein and chest wall veins. The transitional sheath was then exchanged for a 7 Scottish short dialysis sheath. ??Using a Kumpe catheter a 0.035 Bentson wire was passed into the right atrium. ??Angioplasty of the central venous structures was then performed using an 12 mm and then 14 mm diameter balloon. ??After the inflation with the 14 mm diameter balloon repeat contrast injection demonstrated significant improvement with significantly less retrograde reflux into the neck and chest wall veins. ??There is mild rebound noted. Angioplasty of the venous anastomosis was then performed using an 8 mm and 9 mm x 4 cm diameter balloon. ??Repeat contrast injection demonstrated significant improvement with no significant residual stenosis. ??Reflux injection while the balloon was inflated demonstrated a widely patent arterial anastomosis. ??The sheath was removed and hemostasis was obtained with manual compression. ?? The patient tolerated the procedure well. 25 cc of Isovue-300 use, 3 min and 21 sec of fluoroscopy Moderate IV conscious sedation was administered using 0.5 mg of Versed and 100 mcg of fentanyl. ??The patient was independently monitored by registered nurse for 15 min using automated blood pressure, EKG and pulse [...] 50 mL/hr, Intravenous, INTRA-PROCEDURE MULTIPLE, Starting on 09/13/20 at 1141, Until Susan 09/14/20 at 0143, Intra-procedure (IR) $ New Bag/Syringe 09/13/2020 12:27 PM CDT 100 mL 50 mL/hr fentaNYL (PF) (Sublimaze) injection 25-100 mcg 25-100 mcg, Intravenous, INTRA-PROCEDURE MULTIPLE, Starting on Fri09/13/20 at 1141, Until Susan 09/14/20 at 0143, Administer every 5 minutes during procedure as needed for sedation. Dose to be determined by physician., Intra-procedure (IR) $ Given 09/13/2020 12:13 PM CDT 50 mcg $ Given 09/13/2020 12:00 PM CDT 50 mcg iopamidol (Isovue 300) 61 % contrast Intravenous, INTRA-PROCEDURE MULTIPLE, Starting on Fri09/13/20 at 1141, Until Susan 09/14/20 at 0143, Intra/Post-procedure $ Given - Contrast 09/13/2020 12:26 PM CDT 15 mL $ Given - Contrast 09/13/2020 12:13 PM CDT 10 mL lidocaine PF (Xylocaine Mpf) 1 % injection Infiltration, INTRA-PROCEDURE MULTIPLE, Starting on Fri09/13/20 at 1141, Until Susan 09/14/20 at 0143, Intra-procedure (IR) $ Given 09/13/2020 12:27 PM CDT 8 mg midazolam (Versed) injection 0.5-2 mg 0.5-2 mg, Intravenous, INTRA-PROCEDURE MULTIPLE, Starting on Fri09/13/20 at 1141, Until Susan 09/14/20 at 0143, Administer every 5 minutes during procedure as needed for sedation. Dose to be determined by physician., Intra-procedure (IR) $ Given 09/13/2020 12:13 PM CDT 0.5 mg documented in this encounter Care Teams Computer Repair Instructor Relationship Specialty Start Date End Date Kwame Berg MD PCP - General Internal Medicine 01/19/19 [place] [id number] [phone] Orthopedic Surgery Orthopedic Surgery 10/13/19 documented as of this encounter
--- OUTSIDE RECORDS SUMMARY | 2024-04-25 21:19 | XMS_ITS | Encounter Summary ---
Author Organization [facility] Address [address] [place] [address] Care Team Providers Care Frequency Checker Name Role Phone Kwame Berg MD Primary Care Provider [phone] Dylon Agudelo MD Unavailable [phone] Reason for Referral * Radiology Services (Routine) - Closed Specialty Diagnoses / Procedures Referred By Contac t Referred To Contact Diagnoses Encounter regarding vascular access for dialysis for end-stage renal disease (HCC) Procedures IR [place] [address] [facility] [address] [place] [phone] Referral ID Status Reason Start Date Expiration Date Visits Re quested Visits Authorized [id number] Closed 05/25/2021 05/25/2022 1 1 Reason for Visit * Radiology Services (Routine) - Closed Specialty Diagnoses / Procedures Referred By Contac indra Referred To Contact Diagnoses Encounter regarding vascular access for dialysis for end-stage renal disease (HCC) Procedures IR [place] [address] [facility] [address] [place] [phone] Referral ID Status Reason Start Date Expiration Date Visits Re quested Visits Authorized [id number] Closed 05/25/2021 05/25/2022 1 1 Encounter Details Date Type Department Care Team (Latest Contact Info) Description 08/15/2021 12:42 PM CDT - 08/15/2021 11:59 PM CDT Hospital Encounter [facility] Vascular Services [id number] [place] [address], [address] [place] [address] Tyshawn Heller MD [address] [place] [address] Discharge Disposition: Home or Self Care Social [...] Sign Reading Time Taken Comments Blood Pressure 162/63 08/15/2021 3:10 PM CDT Pulse 79 08/15/2021 3:10 PM CDT Temperature 37.1 ??C (98.7 ??F) 08/15/2021 1:17 PM CD T Respiratory Rate 15 08/15/2021 3:10 PM CDT Oxygen Saturation 98% 08/15/2021 3:10 PM CDT Inhaled Oxygen Concentration - - Weight 54.4 kg (120 lb) 08/15/2021 1:17 PM CDT Height 157.5 cm (5' 2) 08/15/2021 1:17 PM CDT Body Mass Index 21.95 08/15/2021 1:17 PM CDT documented in this encounter Functional [...] (5 MG/ML) 0.5% nebulizer solution 06/14/2021 01/16/2022 allopurinol (ZYLOPRIM) 100 MG tablet 100 mg by Enteral route once daily 10/17/2021 amLODIPine (NORVASC) 5 MG tablet Take 5 mg by mouth once daily 01/16/2022 atorvastatin (LIPITOR) 20 MG tablet 20 mg by Enteral route once daily 10/17/2021 dilTIAZem (CARDIZEM) 60 MG tablet 08/10/2021 01/16/2022 dilTIAZem coated beads 24hr (CARDIZEM CD) 120 MG capsule Take 1 capsule by mouth once daily Do not crush or chew. 30 capsule 01/17/2020 01/16/2022 docusate sodium (COLACE) 100 MG capsule Take 100 mg by mouth once daily as needed 05/28/2019 01/16/2022 folic acid (FOLVITE) 1 MG tablet 1 mg by Enteral route once daily 05/13/2022 lisinopril (PRINIVIL; ZESTRIL) 10 MG tablet Take 1 (one) tablet by mouth once daily 08/10/2021 10/18/2022 lisinopril (PRINIVIL;ZESTRIL) 5 MG tablet Take 5 mg by mouth once daily 02/19/2021 10/17/2021 polyethylene glycol 3350 (MIRALAX) 17 g packet Take 17 (seventeen) g by mouth once daily as needed 08/09/2019 08/04/2023 polyethylene glycol 3350 (MIRALAX) 17 GM/SCOOP powder 17 g by Enteral route every 24 hours 10/17/2021 sodium bicarbonate 325 MG tablet Take 1 (one) tablet by mouth once daily 07/05/2019 10/21/2022 vitamin D, ergocalciferol, (DRISDOL) 1.25 MG (14874 UT) capsule Take 1 (one) capsule by mouth every 30 days 10/18/2022 documented as of this encounter Progress Notes * Shikha Cyr RN - 08/15/2021 1:27 PM CDT Patient has RUE access, pulsatile proximal to mid then weakens distally. Patient denies complaints. documented in this encounter H&P Notes * Tyshawn Heller MD - 08/15/2021 2:00 PM CDT Chief Complaint ESRD History and Physical Jules Mitchell is a 76 year old male. ESRD, increased RUE fistula pulsatility Past Medical History: Diagnosis Date ??? Cancer 2000 pt unsure of type of cancer ??? Chronic kidney disease ??? ESRD (end stage renal disease) [facility],sat 01/25/21 ??? High blood pressure ??? Pure [...] 100 mg by mouth once daily ??? allopurinol (ZYLOPRIM) 100 MG tablet 100 mg by Enteral route once daily ??? amLODIPine (NORVASC) 5 MG tablet Take 5 mg by mouth once daily (Patient not taking: Reported on08/15/2021) ??? apixaban (ELIQUIS) 2.5 MG tablet Take 1 tablet by mouth 2 times daily 60 tablet 0 ??? atorvastatin (LIPITOR) 20 MG tablet Take 20 mg by mouth at bedtime 0 ??? atorvastatin (LIPITOR) 20 MG tablet 20 mg by Enteral route once daily ??? dilTIAZem (CARDIZEM) 60 MG tablet ??? dilTIAZem coated beads 24hr (CARDIZEM CD) 120 MG capsule Take 1 capsule by mouth once daily Do not crush or chew. 30 capsule 0 ??? docusate sodium (COLACE) 100 MG capsule Take 100 mg by mouth once daily as needed (Patient not taking: Reported on 08/15/2021) ??? folic acid (FOLVITE) 1 MG tablet 1 mg by Enteral route once daily ??? furosemide (LASIX) 80 MG tablet Take 80 mg by mouth 2 times daily ??? levETIRAcetam (KEPPRA) 100 MG/ML oral solution ??? lisinopril (PRINIVIL;ZESTRIL) 5 MG tablet Take 5 mg by mouth once daily ??? lisinopril (PRINIVIL; ZESTRIL) 10 MG tablet ??? polyethylene glycol 3350 (MIRALAX) 17 g packet Take 17 g by mouth once daily as needed ??? polyethylene glycol 3350 (MIRALAX) 17 GM/SCOOP powder 17 g by Enteral route every 24 hours ??? rOPINIRole (REQUIP) 0.5 MG tablet Take 0.5 mg by mouth Three times a week ??? sevelamer carbonate (RENVELA) 800 MG Take 800 mg by mouth 3 times daily with meals ??? sodium bicarbonate 325 MG tablet Take 325 mg by mouth once daily (Patient not taking: Reported on 08/15/2021) ??? tamsulosin (FLOMAX) 0.4 MG capsule Take 0.4 mg by mouth at bedtime At the same time every day after a meal. (Patient not taking: Reported on 08/15/2021) ??? vitamin D, ergocalciferol, (DRISDOL) 1.25 MG (05526 UT) capsule Take 50,000 Units by mouth every 30 days (Patient not taking: Reported on 08/15/2021) No current facility-administered medications on file prior to encounter. Social History Tobacco Use ??? Smoking status: Former Smoker Quit date: 10/12/2012 Years since quittin.8 ??? Smokeless tobacco: Never Used Vaping Use [...] Procedure Notes * Tyshawn Heller MD - 08/15/2021 3:04 PM CDTAssociated Order(s): IR ANGIO AV SHUNT IMAGING Surgeon: Tyshawn Heller MD Pre-Procedure diagnosis: ESRD Time out and final pre-procedure assessment completed immediately prior to start of procedure. Medications reviewed. Post-Procedure diagnosis: Same Anesthesia: Local and IV Sedation Technical Procedure Performed: 1) right upper extremity AV graft injection with angioplasty 2) central venous angioplasty Findings: After informed consent was obtained the patient was placed supine on the angiogram table in the right upper extremity was prepped and draped in the usual sterile fashion. Anesthesia just beyond the arterial anastomosis was obtained with lidocaine and the graft was punctured in antegrade manner with a micropuncture needle followed by a 0.018 wire and transitional sheath. Contrast injection demonstrates recurrent moderate stenosis within the venous limb of the graft itself it with recurrent high-grade stenosis at the venous anastomosis. Central venous structures demonstrates recurrentocclusion of the brachiocephalic/SVC junction. The transitional sheath was then exchanged for a 7 Dominican short dialysis sheath. Angioplasty withinthe graft and the venous anastomosis was performed using an 8 mm x 4 cm diameter balloon. Prolongedinflations were performed. Reflux injection demonstrates a widely patent arterial anastomosis. Contrast injection after angioplasty demonstrates significant improvement within the areas of stenosis wi thout significant residual narrowing noted. A Kumpe the catheter was then advanced over the Bentson wire and used to gain access across the central venous occlusion. The catheter was passed into the inferior vena cava and the Bentson wire was exchanged for a 0.035 Amplatz wire. Angioplasty across the occlusion was performed using a 12 mm diameter balloon. Multiple prolonged inflations were performed in the areas of high-grade stenoses and occlusions. Repeat contrast injection demonstrates significant improvement with no significant residual narrowing. There is also improved filling of the collateral vessels. The sheath was removed and hemostasis was obtained with manual compression. 20 cc of contrast was used, radiation exposure 5.9 Moderate IV conscious sedation was administered by Dr. Heller using 0.5 mg of Versed and 100 mcg ofFentanyl. The patient's airway and condition was evaluated immediately prior to sedation and/or analgesia. The patient was independently monitored by a registered nurse for 15 minutes using automatedblood pressure, EKG and pulse [...] [facility] Vascular Services [address] [facility], [address] [place] [address] [place] [address] [facility] [address] [place] [id number] [place] [address] [facility] [address] [place] [address] documented as of this encounter Procedures Procedure Name Priority Date/Time Associated Diagnosis Comments CARDIAC RHYTHM STRIP ORDER 08/20/2021 10:29 PM CDT IR ANGIO AV SHUNT IMAGING Routine 08/15/2021 3:02 PM CDT Encounter regarding vascular access for dialysis for end-stage renal disease (HCC) documented in this encounter Results * CARDIAC RHYTHM STRIP ORDER (08/20/2021 10:29 PM CDT) Narrative 08/20/2021 10:29 PM CDT Ordered by an unspecified provider. Scanned Document CARDIAC SERVICES ORD ERABLES * IR ANGIO AV SHUNT IMAGING (08/15/2021 3:02 PM CDT) Anatomical Region Laterality Modality Lower Extremity, Upper Extremity, Chest X-Ray Angiography Narrative 08/15/2021 3:04 PM CDT Tyshawn Heller MD ? 08/15/2021 ??3:09 PM Surgeon: Tyshawn Heller MD Pre-Procedure diagnosis: ESRD Time out and final pre-procedure assessment completed immediately prior to start of procedure. Medications reviewed. Post-Procedure diagnosis: Same Anesthesia: Local and IV Sedation Technical Procedure Performed: ??1) right upper extremity AV graft injection with angioplasty 2) central venous angioplasty Findings: ??After informed consent was obtained the patient was placed supine on the angiogram table in the right upper extremity was prepped and draped in the usual sterile fashion. ??Anesthesia just beyond the arterial anastomosis was obtained with lidocaine and the graft was punctured in antegrade manner with a micropuncture needle followed by a 0.018 wire and transitional sheath. ??Contrast injection demonstrates recurrent moderate stenosis within the venous limb of the graft itself it with recurrent high-grade stenosis at the venous anastomosis. ??Central venous structures demonstrates recurrent occlusion of the brachiocephalic/SVC junction. ?? The transitional sheath was then exchanged for a 7 Dominican short dialysis sheath. ??Angioplasty within the graft and the venous anastomosis was performed using an 8 mm x 4 cm diameter balloon. ?? Prolonged inflations were performed. ??Reflux injection demonstrates a widely patent arterial anastomosis. ??Contrast injection after angioplasty demonstrates significant improvement within the areas of stenosis without significant residual narrowing noted. ?? A Kumpe the catheter was then advanced over the Bentson wire and used to gain access across the central venous occlusion. ??The catheter was passed into the inferior vena cava and the Bentson wire was exchanged for a 0.035 Amplatz wire. ??Angioplasty across the occlusion was performed using a 12 mm diameter balloon. ?? Multiple prolonged inflations were performed in the areas of high-grade stenoses and occlusions. ??Repeat contrast injection demonstrates significant improvement with no significant residual narrowing. ??There is also improved filling of the collateral vessels. ??The sheath was removed and hemostasis was obtained with manual compression. 20 cc of contrast was used, radiation exposure 5.9 Moderate IV conscious sedation was administered by Dr. Heller using 0.5 mg of Versed and 100 mcg of Fentanyl. ??The patient's airway and condition was evaluated immediately prior to sedation and/or analgesia. ??The patient was independently monitored by a registered nurse for 15 minutes using automated blood pressure, EKG and [...] 50 mL/hr, Intravenous, INTRA-PROCEDURE MULTIPLE, Starting on Fri08/15/21 at 1411, Until Susan 08/16/21 at 0141, Intra-procedure (IR) $ New Bag/Syringe 08/15/2021 3:03 PM CDT 50 mL 50 mL/hr fentaNYL (PF) (Sublimaze) injection 25-100 mcg 25-100 mcg, Intravenous, INTRA-PROCEDURE MULTIPLE, Starting on Fri08/15/21 at 1411, Until Susan 08/16/21 at 0141, Administer every 5 minutes during [...] in the MAR., Intra-procedure (IR) $ Given 08/15/2021 2:42 PM CDT 100 mcg iopamidol (Isovue 300) 61 % contrast Intravenous, INTRA-PROCEDURE MULTIPLE, Starting on Fri08/15/21 at 1411, Until Susan 08/16/21 at 0141, Intra/Post-procedure $ Given - Contrast 08/15/2021 3:03 PM CDT 20 mL lidocaine PF (Xylocaine MPF) 1 % injection Infiltration, INTRA-PROCEDURE MULTIPLE, Starting on Fri08/15/21 at 1411, Until Susan 08/16/21 at 0141, Intra-procedure (IR) $ Given 08/15/2021 2:42 PM CDT 10 mg midazolam (Versed) injection 0.5-2 mg 0.5-2 mg, Intravenous, INTRA-PROCEDURE MULTIPLE, Starting on Fri08/15/21 at 1411, Until Susan 08/16/21 at 0141, Administer every 5 minutes during procedure as needed for sedation. Dose to be determined by physician., Intra-procedure (IR) $ Given 08/15/2021 2:48 PM CDT 0.5 mg documented in this encounter Care Teams Frequency Checker Relationship Specialty Start Date End Date Kwame Berg MD PCP - General Internal Medicine 01/19/19 [place] [address] [address] Orthopedic Surgery Orthopedic Surgery 10/13/19 documented as of this encounter
--- OUTSIDE RECORDS SUMMARY | 2024-04-25 21:19 | XMS_ITS | Encounter Summary ---
Author Organization [facility] Address [address] [place] [address] Care Team Providers Care Electronics Mechanic Name Role Phone Kwame Berg MD Primary Care Provider [phone] Dylon Agudelo MD Unavailable [phone] Reason for Visit * Reason Onset Date Comments Update 02/16/2020 Encounter Details Date Type Department Care Team (Late st Contact Info) Description 02/16/2020 Telephone [facility] Orthopedics [address] [place] [address], [address] [address] Ruma Hernandez Update Social History Tobacco Use Types Packs/Day Years [...] encounter Miscellaneous Notes * Telephone Encounter - Ruma Hernandez - 02/16/2020 3:25 PM CDT Kandice from [facility] called, I forgot to get her phone #, to let Dr Agudelo know that the patient is not maintaining his posterior hip precautions. Patient suffers from dementia. She doesn't need a call back, just wanted to make us aware. documented in this encounter Plan of Treatment Upcoming Encounters Date Type Department Care Team (Late st Contact Info) Description 08/23/2024 1:00 PM CDT Appointment [facility] Vascular Services [address] [facility], [address] [place] [address] [place] [address] [facility] [address] [place] [address] [place] [address] [facility] [address] [place] [address] documented as of this encounter Visit Diagnoses Not on filedocumented in this encounter Care Teams Electronics Mechanic Relationship Specialty Start Date End Date Kwame Berg MD PCP - General Internal Medicine 01/19/19 [place] [address] [facility] [address] [place] [address] Orthopedic Surgery Orthopedic Surgery 10/13/19 documented as of this encounter
--- OUTSIDE RECORDS SUMMARY | 2024-04-25 21:19 | XMS_ITS | Encounter Summary ---
Author Organization [facility] Address [address] [facility] [place] [address] Care Team Providers Care Fishing Rod Marker Name Role Phone Kwame Berg MD Primary Care Provider [phone] Dylon Agudelo MD Unavailable [phone] Reason for Visit * Radiology Services (Routine) - Closed Specialty Diagnoses / Procedures Referred By Contac t Referred To Contact Diagnoses Encounter regarding vascular access for dialysis for end-stage renal disease (HCC) Procedures IR ANGIO AV SHUNT [place] [id number] [place] [address] [place] [phone] Referral ID Status Reason Start Date Expiration Date Visits Re quested Visits Authorized [id number] Closed 05/25/2021 05/25/2022 1 1 Encounter Details Date Type Department Care Team (Latest Contact Info) Description 05/29/2022 1:51 PM SIZE ROLLER OPERATOR - 05/29/2022 11:59 PM SIZE ROLLER OPERATOR Hospital Encounter [facility] Health Vascular Services [address] [facility] [place], [place] [id number] Tyshawn Heller MD [address] [place] [address] [place] [address] [address] Haja Marrufo MD [place] [address] [address] Discharge Disposition: Home or Self Care [...] Coronavirus/COVID-19? No / Unsure 05/17/2022 8:08 AM SIZE ROLLER OPERATOR documented as of this encounter Last Filed Vital Signs Vital Sign Reading Time Taken Comments Blood Pressure 170/75 05/29/2022 2:55 PM SIZE ROLLER OPERATOR Pulse 68 05/29/2022 2:55 PM SIZE ROLLER OPERATOR Temperature 36.7 ??C (98 ??F) 05/29/2022 2:10 PM SIZE ROLLER OPERATOR Respiratory Rate 6 05/29/2022 2:55 PM SIZE ROLLER OPERATOR Oxygen Saturation 97% 05/29/2022 2:55 PM SIZE ROLLER OPERATOR Inhaled Oxygen Concentration - - Weight 55.3 kg (122 lb) 05/29/2022 2:10 PM SIZE ROLLER OPERATOR Height 157.5 cm (5' 2) 05/29/2022 2:10 PM SIZE ROLLER OPERATOR Body Mass Index 22.31 05/29/2022 2:10 PM SIZE ROLLER OPERATOR documented in this encounter Functional Status [...] every day after a meal. HYDROcodone-acetaminophe n (Patton) 5-325 MG tabletIndications:Encoun ter regarding vascular access [...] 10/21/2022 vitamin D, ergocalciferol, (DRISDOL) 1.25 MG (07900 UT) capsule Take 1 (one) capsule by mouth every 30 days 10/18/2022 documented as of this encounter Progress Notes * Madelyn Bailey RN - 05/29/2022 2:08 PM CST Pt is here for dialysis catheter exchange. BLANCHE access is clotted. Pt had catheter placed last week.Dialysis center called yesterday and stated they were unable to get patient to run with CVC despitemany interventions. Pt has surgery scheduled with MDR for a new access in arm. ROLLER OPERATOR documented in this encounter H&P Notes * Tyshawn Heller MD - 05/29/2022 2:04 PM CST Chief Complaint ESRD History and Physical Jules Mitchell is a 76 year old male. ESRD, poor functioning dialysis catheter Past Medical History: Diagnosis Date ??? Cancer (CMS/HCC) 1999 pt unsure of type of cancer ??? Chronic kidney disease ??? Dementia (CMS/HCC) ??? ESRD (end stage renal disease) (CMS/HCC) [facility],sat as of 05/27/22 ??? High blood [...] ??? vitamin D, ergocalciferol, (DRISDOL) 1.25 MG (88978 UT) capsule Take 1 (one) capsule by mouth every 30 days No current facility-administered medications on file prior [...] patient who understands and wishes to proceed. ROLLER OPERATOR documented in this encounter Procedure Notes * Tyshawn Heller MD - 05/29/2022 2:53 PM CSTAssociated Order(s): IR CENTRAL LINE REPLACE Surgeon: Tyshawn Heller MD Pre-Procedure diagnosis: ESRD Time out and final pre-procedure assessment completed immediately prior to start of procedure. Medications reviewed. Post-Procedure diagnosis: Same Anesthesia: Local Technical Procedure Performed: Fluoroscopic guided tunneled left IJ hemodialysis catheter repositioning Findings: After informed consent was obtained the patient was placed supine on the angiogram table in the left upper chest around the existing catheter site was prepped and draped in the usual sterile fashion anesthesia was obtained with lidocaine. Fluoroscopic evaluation of the catheter demonstrated no kinking in the supraclavicular region. The catheter tip in appear to be deep within the right atrium. The catheter was pulled back where the tip was located now in the proximal to mid right atrium and the arterial port was erected medially. Both lumens of the catheter easily aspirated and flushed using a large syringe. Therefore catheter exchange was not needed. Both lumens were appropriately packed with heparin and the catheter was secured to the patient using 2 0 Prolene sutures. Patient tolerated the procedure well. Radiation exposure 2.1 mGy Disposition: Home Status: Stable Drain or Pack: None Additional information/Complications: None Estimated blood loss: negligible Specimen(s) removed: No Specimen ROLLER OPERATOR documented in this encounter Plan of Treatment Upcoming Encounters Date Type Department Care Team (Late st Contact Info) Description 08/23/2024 1:00 PM CDT Appointment [facility] Health Vascular Services [address] [facility], [address] [place] [address] [place] [address] [facility] [address] [place] [id number] [place] [address] [facility] [address] [place] [address] documented as of this encounter Procedures Procedure Name Priority Date/Time Associated Diagnosis Comments CARDIAC RHYTHM STRIP ORDER 06/13/2022 9:18 AM SIZE ROLLER OPERATOR IR CENTRAL LINE REPLACE Routine 05/29/2022 2:49 PM SIZE ROLLER OPERATOR Encounter regarding vascular access for dialysis for end-stage renal disease (HCC) documented in this encounter Results * CARDIAC RHYTHM STRIP ORDER (06/13/2022 9:18 AM SIZE ROLLER OPERATOR) Narrative 06/13/2022 9:18 AM SIZE ROLLER OPERATOR Ordered by an unspecified provider. Scanned Document CARDIAC SERVICES ORD ERABLES * IR CENTRAL LINE REPLACE (05/29/2022 2:49 PM SIZE ROLLER OPERATOR) Anatomical Region Laterality Modality X-Ray Angiograph y Narrative 05/29/2022 2:53 PM SIZE ROLLER OPERATOR Tyshawn Heller MD ? 05/29/2022 ??2:56 PM [...] No Specimen Tyshawn Heller MD IR ORDERABLES documented in this encounter Visit Diagnoses Diagnosis Encounter regarding vascular access for dialysis for end-stage renal disease (HCC)- Primary End stage renal disease documented in this encounter Administered Medications Inactive Administered Medications - up to 3 most recent administrations Medication Order MAR Action Action Date Dose Rate Site 0.9% NaCl infusion at 50 mL/hr, Intravenous, INTRA-PROCEDURE MULTIPLE, Starting on Fri05/29/22 at 1413, Until Susan 05/30/22 at 0143, Intra-procedure (IR) $ New Bag/Syringe 05/29/2022 2:51 PM SIZE ROLLER OPERATOR 30 mL 50 mL/hr heparin 1000 units/ml injection ADS Med 1 dose, Starting on Fri05/29/22 at 1403, Until Fri05/29/22 at 1451, Created by cabinet override $ Given 05/29/2022 2:51 PM SIZE ROLLER OPERATOR 2,000 Units lidocaine (Xylocaine PF) 1% injection ADS Med 1 dose, Starting on Fri05/29/22 at 1403, Until Fri05/29/22 at 1440, Created by cabinet override $ Given 05/29/2022 2:40 PM SIZE ROLLER OPERATOR 100 mg documented in this encounter Care Teams Fishing Rod Marker Relationship Specialty Start Date End Date Kwame Berg MD PCP - General Internal Medicine 01/19/19 [place] [address] [address] Orthopedic Surgery Orthopedic Surgery 10/13/19 documented as of this encounter
--- OUTSIDE RECORDS SUMMARY | 2024-04-25 21:19 | XMS_ITS | Encounter Summary ---
Author Organization [facility] Address [address] [place] [address] Care Team Providers Care Proof Inspector Name Role Phone Kwame Berg MD Primary Care Provider [phone] Dylon Agudelo MD Unavailable [phone] Reason for Visit * Reason Onset Date Comments Hospital Admission 05/16/2021 Encounter Details Date Type Department Care Team ([facility] Contact Info) Description 05/16/2021 Telephone [facility] [address] [place] [address] [facility] Hospital Admission Social History Tobacco Use Types Packs/Day Years [...] Upcoming Encounters Date Type Department Care Team ([facility] Contact Info) Description 08/23/2024 1:00 PM CDT Appointment [facility] [address] [place] [address], [address] [place], [place] [address] [place] [address] [facility] [address] [place] [address] [place] [address] [facility] [address] [place] [address] documented as of this encounter Visit Diagnoses Not on filedocumented in this encounter Care Teams Proof Inspector Relationship Specialty Start Date End Date Kwame Berg MD PCP - General Internal Medicine 01/19/19 [place] [address] [facility] [address] [place] [address] Orthopedic Surgery Orthopedic Surgery 10/13/19 documented as of this encounter
--- OUTSIDE RECORDS SUMMARY | 2024-04-25 21:19 | XMS_ITS | Encounter Summary ---
Author Organization [facility] Address [address] [facility] [place] [address] Care Team Providers Care Acute Care Nursing Assistant Name Role Phone Kwame Berg MD Primary Care Provider [phone] Dylon Agudelo MD Unavailable [phone] Reason for Referral * Radiology Services (Routine) - Closed Specialty Diagnoses / Procedures Referred By Contac t Referred To Contact Diagnoses Encounter regarding vascular access for dialysis for end-stage renal disease (HCC) Procedures [place] [address] [facility] [address] [place] [phone] Referral ID Status Reason Start Date Expiration Date Visits Re quested Visits Authorized [id number] Closed 06/09/2020 06/09/2021 1 1 SORY SOFTWARE ENGINEER Reason for Visit * Radiology Services (Routine) - Closed Specialty Diagnoses / Procedures Referred By Contac t Referred To Contact Diagnoses ESRD (end stage renal disease) (HCC) Procedures IR [place] [address] [facility] [address] [place] [phone] Referral ID Status Reason Start Date Expiration Date Visits Re quested Visits Authorized [id number] Closed 04/10/2020 04/10/2021 1 1 Encounter Details Date Type Department Care Team (Latest Contact Info) Description 06/12/2020 8:56 AM ADVISORY SOFTWARE ENGINEER - 06/12/2020 11:59 PM ADVISORY SOFTWARE ENGINEER Hospital Encounter [facility] [address] [facility], [address] [place] [address] Tyshawn Heller MD [address] [place] [address] Haja Marrufo MD Halverson, Lewis C, MD [address] [place], [place] [id number] [place] [address] [facility] [address] [place] [phone] Discharge Disposition: Home or Self Care [...] Sign Reading Time Taken Comments Blood Pressure 157/51 06/12/2020 10:14 AM ADVISORY SOFTWARE ENGINEER Pulse 71 06/12/2020 10:14 AM ADVISORY SOFTWARE ENGINEER Temperature - - Respiratory Rate 13 06/12/2020 10:1 4 AM ADVISORY SOFTWARE ENGINEER Oxygen Saturation 97% 06/12/2020 10: 14 AM ADVISORY SOFTWARE ENGINEER Inhaled Oxygen Concentration - - Weight 61.1 kg (134 lb 11.2 oz) 06/12/2020 9:34 AM ADVISORY SOFTWARE ENGINEER Height 157.5 cm (5' 2.01) 06/12/2020 9:34 AM CS T Body Mass Index 24.63 06/12/2020 9:34 AM ADVISORY SOFTWARE ENGINEER documented in this encounter Functional Status Functional [...] UNIT/ML injectionIndications :ESRD (end stage renal disease) ([facility]) Inject 4,000 Units subcutaneously every 7 days 01/20/2020 09/13/2020 lisinopril (PRINIVIL;ZESTRIL) 5 MG tablet Take 5 mg by mouth once daily 08/15/2019 09/13/2020 polyethylene glycol 3350 (MIRALAX) 17 g packet Take 17 (seventeen) g by mouth once daily as needed 08/09/2019 08/04/2023 sodium bicarbonate 325 MG tablet Take 1 (one) tablet by mouth once daily 07/05/2019 10/21/2022 documented as of this encounter Progress Notes * Radha Fields RN - 06/12/2020 9:33 AM CST Right arm access is pulsatile and thrill present, dialysis center states he is having prolonged bleeding post treatment. SORY SOFTWARE ENGINEER documented in this encounter H&P Notes * Mario Iyer MD - 06/12/2020 9:34 AM CST This patient? s prior H&P was reviewed, the patient was examined and no change has occurred in the patient's condition since the prior H&P was completed. Mario Iyer MD SORY SOFTWARE ENGINEER * Mario Iyer MD - 06/12/2020 9:30 AM CST Chief Complaint ESRD History and Physical Jules Mitchell is a 74 year old male. He has a right upper arm dialysis access being used for dialysis.He had imaging 04/2020 showing high-grade stenosis at the venous anastomosis. He presents for surveillance imaging. Past Medical History: Diagnosis Date ??? Cancer 2000 pt unsure of type of cancer ??? Chronic kidney disease ??? ESRD (end stage renal disease) [facility] [phone] -t,,[facility] 04/10/2020 ??? High blood pressure ??? Pure [...] by mouth at bedtime 0 ??? dilTIAZem coated beads 24hr (CARDIZEM CD) 120 MG capsule Take 1 capsule by mouth once daily Do not crush or chew. 30 capsule 0 ??? docusate sodium (COLACE) 100 MG capsule Take 100 mg by mouth once daily as needed ??? epoetin ashly-EPBX (RETACRIT) 4000 UNIT/ML injection Inject 4,000 Units subcutaneously every 7 days ??? furosemide (LASIX) 80 MG tablet Take 80 mg by mouth 2 times daily ??? HYDROcodone-acetaminophen (NORCO) 10-325 MG tablet Take 1 tablet by mouth every 6 hours as needed for Pain 30 tablet 0 ??? lisinopril (PRINIVIL;ZESTRIL) 5 MG tablet Take 5 mg by mouth once daily ??? polyethylene glycol [...] Take 325 mg by mouth once daily ??? tamsulosin (FLOMAX) 0.4 MG capsule Take 0.4 mg by mouth at bedtime At the same time every day after a meal. No current facility-administered medications on file prior to visit. Social History Tobacco Use ??? Smoking status: Former Smoker Quit date: 10/12/2012 Years since quittin.6 ??? Smokeless tobacco: Never Used Substance Use [...] are warm and well perfused. Neurologic: Intact. ASA Class: 3 (A patient with severe systemic disease) A candidate for moderate sedation Review of Systems General: No fatigue or [...] patient who understands and wishes to proceed. SORY SOFTWARE ENGINEER documented in this encounter Procedure Notes * Mario Iyer MD - 06/12/2020 11:40 AM CSTAssociated Order(s): IR ANGIO AV SHUNT IMAGING [facility] Jules Mitchell 1945 DATE OF PROCEDURE: 06/12/2020 ORDERING PHYSICIAN: Mario Iyer MD PROCEDURE: 1. Right upper arm AV graft fistulogram showing high-grade stenosis of the venous anastomosis and also the SVC. 2. Right upper arm peripheral venous angioplasty the venous anastomosis with an 8 x 4 balloon. 3. Central venous angioplasty the right innominate/SVC junction with a 10 x 4 balloon. INDICATIONS FOR PROCEDURE: Once the patient was prepped and draped in usual sterile fashion he was given 1 percent lidocaine as local anesthetic. He tolerated this well. During the procedure he did receive 50 mcg of fentanyl for pain. The micropuncture set was used to cannulate the right upper arm AV graft and fistulogram was obtained. There was excellent retrograde flow back to the arterial anastomosis. There was good flow through the graft but there was high- grade stenosis at the venous anastomosis. There was a good flow into the right axillary and subclavian veins but high-grade stenosis at the right innominate SVC junction. Tract was dilated and a 7 Serbian sheath was inserted. The 8 x 4 balloon was then inserted and angioplasty of the venous anastomosis was performed with excellent results on completion angiography. Superior vena cava and right innominate vein then had angioplasty with a 10 x 4 balloon and also excellent results on completion angiography. Patient tolerated the procedure well was found to be stable postoperatively. Preoperatively the patient has family understoodthe risks of procedure be bleeding infection want to proceed. During the procedure we used 2 min 9 sec of fluoro time and 50 cc of Isovue. DESCRIPTION OF PROCEDURE: DICTATED BY: Mario Iyer M.D./isacc Interventional Post-Operative/Procedure Notes Surgeon: Mario Iyer MD Pre Procedure Diagnosis: ESRD Post Procedure Diagnosis: ESRD Anesthesia: Local 1% lidocaine and IV sedation Disposition: OPS Status: Stable Drain or Pack: None Additional Information/Complications: None Estimated Blood Loss: Negligible Specimen: None SORY SOFTWARE ENGINEER documented in this encounter Plan of Treatment Upcoming Encounters Date Type Department Care Team (Late st Contact Info) Description 08/23/2024 1:00 PM CDT Appointment [facility] [address] [facility], [address] [place] [address] [place] [address] [facility] [facility] [address] [place] [address] [place] [address] [facility] [facility] [address] [place] [address] documented as of this encounter Procedures Procedure Name Priority Date/Time Associated Diagnosis Comments CARDIAC RHYTHM STRIP ORDER 06/16/2020 10:32 PM ADVISORY SOFTWARE ENGINEER IR ANGIO AV SHUNT IMAGING Routine 06/12/2020 10:07 AM ADVISORY SOFTWARE ENGINEER ESRD (end stage renal disease) (HCC) documented in this encounter Results * IR ANGIO AV SHUNT IMAGING (09/13/2020 [...] sheath was then exchanged for a 7 Serbian short dialysis sheath. ??Using a Kumpe catheter [...] and authenticated. Mario Iyer MD IR ORDERABLES * CARDIAC RHYTHM STRIP ORDER (06/16/2020 10:32 PM ADVISORY SOFTWARE ENGINEER) Narrative 06/16/2020 10:32 PM ADVISORY SOFTWARE ENGINEER Ordered by an unspecified provider. Scanned Document CARDIAC SERVICES ORD ERABLES * IR ANGIO AV SHUNT IMAGING (06/12/2020 10:07 AM ADVISORY SOFTWARE ENGINEER) Anatomical Region Laterality Modality Lower Extremity, Upper Extremity, Chest X-Ray Angiography Narrative 06/12/2020 11:40 AM Mario Lombardi MD ? 06/12/2020 11:43 AM [facility] Jules Mitchell 1945 DATE OF PROCEDURE: 06/12/2020 ORDERING PHYSICIAN: Mario Iyer MD PROCEDURE: ??1. ?Right upper arm AV graft fistulogram showing high-grade stenosis of the venous anastomosis and also the SVC. ?2. ? Right upper arm peripheral venous angioplasty the venous anastomosis with an 8 x 4 balloon. ?3. ? Central venous angioplasty the right innominate/SVC junction with a 10 x 4 balloon. ?? INDICATIONS FOR PROCEDURE: ?Once the patient was prepped and draped in usual sterile fashion he was given 1 percent lidocaine as local anesthetic. ??He tolerated this well. ?? During the procedure he did receive 50 mcg of fentanyl for pain. ?? The micropuncture set was used to cannulate the right upper arm AV graft and fistulogram was obtained. ??There was excellent retrograde flow back to the arterial anastomosis. ??There was good flow through the graft but there was high-grade stenosis at the venous anastomosis. ??There was a good flow into the right axillary and subclavian veins but high-grade stenosis at the right innominate SVC junction. ??Tract was dilated and a 7 Serbian sheath was inserted. ??The 8 x 4 balloon was then inserted and angioplasty of the venous anastomosis was performed with excellent results on completion angiography. ??Superior vena cava and right innominate vein then had angioplasty with a 10 x 4 balloon and also excellent results on completion angiography. ?? Patient tolerated the procedure well was found to be stable postoperatively. ??Preoperatively the patient has family understood the risks of procedure be bleeding infection want to proceed. ??During the procedure we used 2 min 9 sec of fluoro time and 50 cc of Isovue. DESCRIPTION OF PROCEDURE: DICTATED BY: ??Mario Iyer M.D./isacc Interventional Post-Operative/Procedure [...] renal disease) (HCC) End stage renal disease Encounter regarding vascular access for dialysis for end-stage renal disease (HCC) End stage renal disease documented in this encounter Administered Medications Inactive Administered Medications - up to 3 most recent administrations Medication Order MAR Action Action Date Dose Rate Site 0.9% NaCl infusion at 50 mL/hr, Intravenous, INTRA-PROCEDURE CONTINUOUS, Starting on Fri06/12/20 at 0945, Until Fri06/13/20 at 0150, Intra-procedure (IR) $ New Bag/Syringe 06/12/2020 10:08 AM ADVISORY SOFTWARE ENGINEER 200 mL 50 mL/hr fentaNYL (PF) (SUBLIMAZE) injection 25-50 mcg 25-50 mcg, Intravenous, INTRA-PROCEDURE MULTIPLE, Starting on Fri06/12/20 at 0941, Until Fri06/13/20 at 0150, Administer every 5 minutes during procedure as needed for sedation. Dose to be determined by physician., Intra-procedure (IR) $ Given 06/12/2020 9:57 AM ADVISORY SOFTWARE ENGINEER 50 mcg iopamidol (ISOVUE 300) 61 % contrast Intravenous, INTRA-PROCEDURE MULTIPLE, Starting on Fri06/12/20 at 0941, Until Fri06/13/20 at 0150, Intra/Post-procedure $ Given - Contrast 06/12/2020 10:08 AM ADVISORY SOFTWARE ENGINEER 50 mL lidocaine PF (XYLOCAINE MPF) 1 % injection Infiltration, INTRA-PROCEDURE MULTIPLE, Starting on Fri06/12/20 at 0941, Until 2/16/21 at 0150, Intra-procedure (IR) $ Given 06/12/2020 9:55 AM ADVISORY SOFTWARE ENGINEER 2 mL documented in this encounter Care Teams Acute Care Nursing Assistant Relationship Specialty Start Date End Date Kwame Berg MD PCP - General Internal Medicine 01/19/19 [place] [id number] [address] Orthopedic Surgery Orthopedic Surgery 10/13/19 documented as of this encounter
--- OUTSIDE RECORDS SUMMARY | 2024-04-25 21:19 | XMS_ITS | Encounter Summary ---
Author Organization [facility] Address [address] [place] [address] Care Team Providers Care Palliative Care Nurse Practitioner Name Role Phone Kwame Berg MD Primary Care Provider Dylon Agudelo MD Unavailable [phone] Encounter Details Date Type Department Care Team (Latest Contact Info) Description 07/07/2020 Travel Social History Tobacco Use Types Packs/Day [...] COVID-19? No / Unsure 07/07/2020 8:23 AM PATIENT FINANCIAL COUNSELOR documented as of this encounter Functional Status [...] PM CDT Appointment [facility] [address] [facility], [address] [place] [address] [place] [address] [facility] [address] [place] [address] [place] [address] [facility] [address] [place] [address] documented as of this encounter Visit Diagnoses Not on filedocumented in this encounter Care Teams Palliative Care Nurse Practitioner Relationship Specialty Start Date End Date Kwame Berg MD PCP - General Internal Medicine 01/19/19 [place] [address] [facility] [address] [place] [address] Orthopedic Surgery Orthopedic Surgery 10/13/19 documented as of this encounter
--- OUTSIDE RECORDS SUMMARY | 2024-04-25 21:19 | XMS_ITS | Encounter Summary ---
Author Organization [facility] Address [address] [place] [address] Care Team Providers Care Sueding And Buffing Machine Operator Name Role Phone Kwame Berg MD Primary Care Provider [phone] Dylon Agudelo MD Unavailable [phone] Encounter Details Date Type Department Care Team (Latest Contact Info) Description 03/03/2020 Travel Social History Tobacco Use Types Packs/Day [...] COVID-19? No / Unsure 03/03/2020 10:05 AM COMPLIANCE CLERK documented as of this encounter Functional [...] Info) Description 08/23/2024 1:00 PM CDT Appointment [facility] [address] [facility] [address] [place], [place] [id number] [place] [address] [facility] [address] [place] [address] [place] [address] [facility] [address] [place] [address] documented as of this encounter Visit Diagnoses Not on filedocumented in this encounter Care Teams Sueding And Buffing Machine Operator Relationship Specialty Start Date End Date Kwame Berg MD PCP - General Internal Medicine 01/19/19 [place] [address] [facility] [address] [place] [address] Orthopedic Surgery Orthopedic Surgery 10/13/19 documented as of this encounter
--- OUTSIDE RECORDS SUMMARY | 2024-04-25 21:19 | XMS_ITS | Encounter Summary ---
Author Organization [facility] Address [address] [place] [address] Care Team Providers Care Director Of Neurology Name Role Phone Kwame Berg MD Primary Care Provider [phone] Dylon Agudelo MD Unavailable [phone] Reason for Referral * Radiology Services (Routine) - Closed Specialty Diagnoses / Procedures Referred By Contac t Referred To Contact Diagnoses ESRD (end stage renal disease) (HCC) Procedures [place] [address] [facility] [address] [place] [phone] Referral ID Status Reason Start Date Expiration Date Visits Re quested Visits Authorized [id number] Closed 04/10/2020 04/10/2021 1 1 MBLIES AND INSTALLATIONS INSPECTOR Reason for Visit * Radiology Services (Routine) - Closed Specialty Diagnoses / Procedures Referred By Contac t Referred To Contact Diagnoses ESRD (end stage renal disease) (HCC) Procedures IR [place] [address] [facility] [address] [place] [phone] Referral ID Status Reason Start Date Expiration Date Visits Re quested Visits Authorized [id number] Closed 04/10/2020 04/10/2021 1 1 Encounter Details Date Type Department Care Team (Latest Contact Info) Description 05/03/2020 11:27 AM ASSEMBLIES AND INSTALLATIONS INSPECTOR - 05/03/2020 11:59 PM ASSEMBLIES AND INSTALLATIONS INSPECTOR Hospital Encounter [facility] [address] [place] [address], [address] [place] [address] Tyshawn Heller MD [address] [place] [phone] Discharge Disposition: Home or Self Care [...] COVID-19? No / Unsure 04/04/2020 9:46 AM ASSEMBLIES AND INSTALLATIONS INSPECTOR documented as of this encounter Last Filed Vital Signs Vital Sign Reading Time Taken Comments Blood Pressure 178/68 05/03/2020 12:50 PM ASSEMBLIES AND INSTALLATIONS INSPECTOR Pulse 64 05/03/2020 12:50 PM ASSEMBLIES AND INSTALLATIONS INSPECTOR Temperature 36.8 ??C (98.2 ??F) 05/03/2020 11:[address] Respiratory Rate 15 05/03/2020 12:50 PM ASSEMBLIES AND INSTALLATIONS INSPECTOR Oxygen Saturation 100% 05/03/2020 12:50 PM ASSEMBLIES AND INSTALLATIONS INSPECTOR Inhaled Oxygen Concentration - - Weight 61.7 kg (136 lb) 05/03/2020 11:45 AM ASSEMBLIES AND INSTALLATIONS INSPECTOR Height 157.5 cm (5' 2) 05/03/2020 11:45 AM ASSEMBLIES AND INSTALLATIONS INSPECTOR Body Mass Index 24.87 05/03/2020 11:45 AM ASSEMBLIES AND INSTALLATIONS INSPECTOR documented in this encounter Functional Status Functional [...] UNIT/ML injectionIndications :ESRD (end stage renal disease) ([facility]) Inject 4,000 Units subcutaneously every [...] as of this encounter Progress Notes * Yvette Salgado RN - 05/03/2020 11:50 AM CST Right upper arm graft pulsatile. Per dialysis and patient cannulating without issues. Patient reports prolonged bleeding after dialysis treatments. MBLIES AND INSTALLATIONS INSPECTOR documented in this encounter H&P Notes * Tyshawn Heller MD - 05/03/2020 11:47 AM CST INVASIVE PROCEDURE H&P / SEDATION PLAN OF CARE Chief Complaint / History of Present Illness: ESRD Additional Diagnosis: No admission diagnoses are documented for this encounter. Procedure Planned: RUE fistulogram w poss DIECAST MACHINE OPERATOR/stent/declot, tunneled HD catheter removal Past Medical History Illnesses: Past Medical History: Diagnosis Date ??? Cancer 2000 pt unsure of type of cancer ??? Chronic kidney disease ??? ESRD (end stage renal disease) Evelyn Oleary [phone] -t,,sat 04/10/2020 ??? High blood pressure ??? Pure hypercholesterolemia ??? Stroke per pt EXAM: BP 136/46 Pulse 64 Temp 98.2 ??F (36.8 ??C) Resp 14 Ht 1.575 m (5' 2) Wt 61.7 kg (136 lb) SpO2 99%BMI 24.87 kg/m2 General appearance: alert, cooperative, no distress Heart: [...] Functional Limitations Airway: Patent Monitoring: heart rate, monitor technician, continuous pulse oximetry, frequent blood pressure checks,level of consciousness, IV access, constant attendance by RN until patient recovered and intubationand emergency airway equipment available. MBLIES AND INSTALLATIONS INSPECTOR documented in this encounter Procedure Notes * Tyshawn Heller MD - 05/03/2020 1:09 PM CSTAssociated Order(s): IR ANGIO AV SHUNT IMAGING Surgeon: Tyshawn Heller MD Pre-Procedure diagnosis: ESRD Time out and final pre-procedure assessment completed immediately prior to start of procedure. Medications reviewed. Post-Procedure diagnosis: Same Anesthesia: Local, Fentanyl Technical Procedure Performed: 1) ultrasound guidance for needle placement 2) were upper extremity AV graft injection with angioplasty 3) central venous angioplasty 4) tunneled right IJ hemodialysis catheter removal Findings: After informed consent was obtained the patient was placed supine on the angiogram table and the right upper extremity and chest were prepped and draped in the usual sterile fashion. Ultrasound evaluation of the graft demonstrated patency and adequacy for access. Anesthesia just beyond the arterial anastomosis was obtained with lidocaine. Under direct ultrasound guidance the graft was punctured with a micropuncture needle and antegrade manner followed by a 0.018 wire. Appropriate ultrasound images were captured. The needle was then exchanged for a transitional sheath. Contrast injection demonstrated patency of the graft. However high-grade stenosis at the venous anastomosis was noted. Otherwise the draining venous structures within the right upper extremity were patent. Collateral vessels are noted within the upper chest. There is occlusion of the SVC along the tunneled hemodialysis catheter. The transitional sheath was then exchanged for a 7 Fijian short dialysis sheath. Angioplasty of thevenous anastomosis was performed using a 6 mm and then 7 mm Conquest balloon. After the inflations repeat contrast injection demonstrated significant improvement with mild rebound. Attempts were thenmade to gain access through the occluded SVC with a glidewire and Kumpe the catheter which were unsu ccessful. Subsequently the tunneled right IJ hemodialysis catheter was further prepped sterilely. Anesthesia on the cuff was obtained lidocaine. The cuff was freed of scar tissue with dissection and the catheter was removed. 0.035 Bentson wires were passed through each lumen and into the central venous structures. Angioplasty throughout the SVC was then performed using a 12 mm diameter balloon. Significantwasting was noted at the origin of the SVC which effaced upon complete inflation of the 12 mm balloon. Repeat contrast injection through the 7 Fijian sheath in the AV graft demonstrated respiration of patency through the occluded SVC with no significant residual stenosis or thrombus. Hemostasis along the right chest and supraclavicular region was obtained with manual compression. A7 Fijian sheath was also removed and hemostasis obtained with manual compression. The patient tolerated the procedure well. 40 cc of Isovue and 3.5 min of fluoroscopy was used. 50 mcg of fentanyl was given during the procedure IV. Disposition: Home Status: Stable Drain or Pack: None Additional information/Complications: None Estimated blood loss: negligible Specimen(s) removed: No Specimen During the post-procedure debrief all intra-procedure verbal order medications ordered by the proceduralist were reviewed and authenticated. MBLIES AND INSTALLATIONS INSPECTOR documented in this encounter Plan of Treatment Upcoming Encounters Date Type Department Care Team (Late st Contact Info) Description 08/23/2024 1:00 PM CDT Appointment [facility] [address] [facility], [place]), [address] [place], [place] [id number] [place] [address] [facility] [address] [place] [address] [place] [address] [facility] [address] [place] [address] Pending Results Name Type Priority Associated Diagnoses Date /Time IR CENTRAL LINE REMOVAL Imaging Routine ESRD (end stage renal disease) (HCC) 05/03/2020 12:48 PM ASSEMBLIES AND INSTALLATIONS INSPECTOR documented as of this encounter Procedures Procedure Name Priority Date/Time Associated Diagnosis Comments CARDIAC RHYTHM STRIP ORDER 05/12/2020 10:22 PM ASSEMBLIES AND INSTALLATIONS INSPECTOR IR ANGIO AV SHUNT IMAGING Routine 05/03/2020 12:48 PM ASSEMBLIES AND INSTALLATIONS INSPECTOR ESRD (end stage renal disease) ([facility]) documented in this encounter Results * CARDIAC RHYTHM STRIP ORDER (05/12/2020 10:22 PM ASSEMBLIES AND INSTALLATIONS INSPECTOR) Narrative 05/12/2020 10:22 PM ASSEMBLIES AND INSTALLATIONS INSPECTOR Ordered by an unspecified provider. Scanned Document CARDIAC SERVICES ORD ERABLES * IR ANGIO AV SHUNT IMAGING (05/03/2020 12:48 PM ASSEMBLIES AND INSTALLATIONS INSPECTOR) Anatomical Region Laterality Modality Lower Extremity, Upper Extremity, Chest X-Ray Angiography Narrative 05/03/2020 1:09 PM ASSEMBLIES AND INSTALLATIONS INSPECTOR Tyshawn Heller MD ? 05/03/2020 ??3:04 PM Surgeon: Tyshawn [...] sheath was then exchanged for a 7 Fijian short dialysis sheath. ??Angioplasty of the venous [...] balloon. ??Repeat contrast injection through the 7 Fijian sheath in the AV graft demonstrated respiration of patency through the occluded SVC with no significant residual stenosis or thrombus. Hemostasis along the right chest and supraclavicular region was obtained with manual compression. ??A 7 Fijian sheath was also removed and hemostasis obtained [...] 50 mL/hr, Intravenous, INTRA-PROCEDURE MULTIPLE, Starting on Fri05/03/20 at 1151, Until Susan 05/04/20 at 0148, Intra-procedure (IR) $ New Bag/Syringe 05/03/2020 12:52 PM ASSEMBLIES AND INSTALLATIONS INSPECTOR 120 mL 50 mL/hr fentaNYL (PF) (SUBLIMAZE) injection 25-100 mcg 25-100 mcg, Intravenous, INTRA-PROCEDURE MULTIPLE, Starting on 05/03/20 at 1151, Until Susan 05/04/20 at 0148, Administer every 5 minutes during procedure as needed for sedation. Dose to be determined by physician., Intra-procedure (IR) $ Given 05/03/2020 12:22 PM ASSEMBLIES AND INSTALLATIONS INSPECTOR 50 mcg iopamidol (ISOVUE 300) 61 % contrast Intravenous, INTRA-PROCEDURE MULTIPLE, Starting on Fri05/03/20 at 1151, Until Susan 05/04/20 at 0148, Intra/Post-procedure $ Given - Contrast 05/03/2020 12:52 PM ASSEMBLIES AND INSTALLATIONS INSPECTOR 40 mL lidocaine PF (XYLOCAINE MPF) 1 % injection Infiltration, INTRA-PROCEDURE MULTIPLE, Starting on Fri05/03/20 at 1151, Until Susan 05/04/20 at 0148, Intra-procedure (IR) $ Given 05/03/2020 12:52 PM ASSEMBLIES AND INSTALLATIONS INSPECTOR 10 mL documented in this encounter Care Teams Director Of Neurology Relationship Specialty Start Date End Date Kwame Berg MD PCP - General Internal Medicine 01/19/19 [place] [id number] [phone] Orthopedic Surgery Orthopedic Surgery 10/13/19 documented as of this encounter
--- OUTSIDE RECORDS SUMMARY | 2024-04-25 21:19 | XMS_ITS | Encounter Summary ---
Author Organization [facility] Address [facility] [facility] [place] [address] Care Team Providers Care Insulation Helper Name Role Phone Kwame Berg MD Primary Care Provider [phone] Dylon Agudelo MD Unavailable [phone] Reason for Visit * Reason Comments Post-Op BLANCHE AVF Encounter Details Date Type Department Care Team (Late st Contact Info) Description 04/03/2020 1:50 PM TEST AND BALANCE ENGINEER Office Visit [facility] Medical [facility] - Surgery [id number] [place] [address], [address] [phone] [place] [address] [address] ESRD (end stage renal disease) [...] COVID-19? No / Unsure 04/03/2020 2:36 PM TEST AND BALANCE ENGINEER documented as of this encounter Last Filed Vital Signs Vital Sign Reading Time Taken Comments Blood Pressure - - Pulse - - Temperature - - Respiratory Rate - - Oxygen Saturation - - Inhaled Oxygen Concentration - - Weight 60.3 kg (133 lb) 04/03/2020 2:05 PM TEST AND BALANCE ENGINEER Height 157.5 cm (5' 2) 04/03/2020 2:05 PM TEST AND BALANCE ENGINEER Body Mass Index 24.33 04/03/2020 2:05 PM TEST AND BALANCE ENGINEER documented in this encounter Functional Status [...] * Patient Instructions* Imelda Mancia LPN - 04/03/2020 2:08 PM TEST AND BALANCE ENGINEER Patient's medications and allergies were reviewed with the patient today. Patient was instructed tocontact primary care physician or ordering provider with any questions regarding medications. AND BALANCE ENGINEER documented in this encounter Progress Notes * Mario Iyer MD - 04/03/2020 2:06 PM CST Jules Mitchell is a 74 year old male who is here for a postoperative visit following PROCEDURE PERFORMED: 1. Right upper arm arteriovenous graft. 2. Ligation of right upper arm AV fistula The patient is referred by Naveen Blackman MD. PCP is Kwame Berg MD. Incision: Healing well. Sutures still in place, arm swelling around the sutures Thrill/Bruit: Present Plan: Will plan Doxycycline and Vanco at dialysis for 5 treatments (called to Julisa at [facility]), follow up in one week AND BALANCE ENGINEER documented in this encounter Plan of Treatment Upcoming Encounters Date Type Department Care Team (Late st Contact Info) Description 08/23/2024 1:00 PM CDT Appointment [facility] [address] [facility], [address] [place] [address] [place] [address] [facility] [address] [place] [address] [place] [address] [facility] [address] [place] [address] documented as of this encounter Visit Diagnoses Diagnosis ESRD (end stage renal disease) (HCC)- Primary End stage renal disease documented in this encounter Care Teams Insulation Helper Relationship Specialty Start Date End Date Kwame Berg MD PCP - General Internal Medicine 01/19/19 [place] [address] [facility] [address] [place] [address] Orthopedic Surgery Orthopedic Surgery 10/13/19 documented as of this encounter
--- OUTSIDE RECORDS SUMMARY | 2024-04-25 21:19 | XMS_ITS | Encounter Summary ---
Author Organization [facility] Address [address] [facility] [place] [address] Care Team Providers Care Assurance Auditor Name Role Phone Kwame Berg MD Primary Care Provider [phone] Dylon Agudelo MD Unavailable [phone] Reason for Referral * Radiology Services (Routine) - Closed Specialty Diagnoses / Procedures Referred By Contac t Referred To Contact Diagnoses Encounter regarding vascular access for dialysis for end-stage renal disease (HCC) Procedures IR [place] [address] [facility] [address] [address] Referral ID Status Reason Start Date Expiration Date Visits Re quested Visits Authorized [id number] Closed 03/21/2021 03/21/2022 1 1 SHOP CLEANER * Radiology Services (Routine) - Closed Specialty Diagnoses / Procedures Referred By Contac t Referred To Contact Diagnoses Encounter regarding vascular access for dialysis for end-stage renal disease (HCC) Procedures IR [place] [address] [facility] [address] [place] [phone] Referral ID Status Reason Start Date Expiration Date Visits Re quested Visits Authorized [id number] Closed 03/21/2021 03/21/2022 1 1 SHOP CLEANER Reason for Visit * Radiology Services (Routine) - Closed Specialty Diagnoses / Procedures Referred By Contac t Referred To Contact Diagnoses ESRD (end stage renal disease) (HCC) Procedures IR [place] [address] [facility] [address] [place] [address] Referral ID Status Reason Start Date Expiration Date Visits Re quested Visits Authorized [id number] Closed 04/10/2020 04/10/2021 1 1 Encounter Details Date Type Department Care Team (Latest Contact Info) Description 03/26/2021 11:20 AM BAKESHOP CLEANER - 03/26/2021 11:59 PM BAKESHOP CLEANER Hospital Encounter [facility] Vascular Services [address] [facility], [address] [place], [place] [id number] Tyshawn Heller MD [address] [place] [address] Haja Marrufo MD Halverson, Lewis C, MD [address] [place] [address] [place] [address] [facility] [address] [place] [address] Discharge Disposition: Home or Self [...] Sign Reading Time Taken Comments Blood Pressure 153/56 03/26/2021 12:55 PM BAKESHOP CLEANER Pulse 59 03/26/2021 12:55 PM BAKESHOP CLEANER Temperature 37.1 ??C (98.8 ??F) 03/26/2021 11:[address] Respiratory Rate 13 03/26/2021 12:55 PM BAKESHOP CLEANER Oxygen Saturation 99% 03/26/2021 12:55 PM BAKESHOP CLEANER Inhaled Oxygen Concentration - - Weight 56.7 kg (125 lb) 03/26/2021 11:46 AM BAKESHOP CLEANER Height 157.5 cm (5' 2) 03/26/2021 11:46 AM BAKESHOP CLEANER Body Mass Index 22.86 03/26/2021 11:46 AM BAKESHOP CLEANER documented in this encounter Functional Status Functional [...] mouth once daily as needed 05/28/2019 01/16/2022 lisinopril (PRINIVIL;ZESTRIL) 5 MG tablet Take 5 mg by mouth once daily 02/19/2021 10/17/2021 polyethylene glycol 3350 (MIRALAX) 17 g packet Take 17 (seventeen) g by mouth once daily as needed 08/09/2019 08/04/2023 sodium bicarbonate 325 MG tablet Take 1 (one) tablet by mouth once daily 07/05/2019 10/21/2022 vitamin D, ergocalciferol, (DRISDOL) 1.25 MG (47089 UT) capsule Take 1 (one) capsule by mouth every 30 days 10/18/2022 documented as of this encounter Progress Notes * Chiara Galindo RN - 03/26/2021 11:55 AM CST Patient here for RUE fistulotomy. RUE access pusiltile with weakness proximally. Patient denies issues with dialysis treatment. SHOP CLEANER documented in this encounter H&P Notes * Mario Iyer MD - 03/26/2021 12:00 PM CST Chief Complaint ESRD History and Physical Jules Mitchell is a 75 year old male. Patient has a right arm access being used for dialysis. 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 Patient presents with arm swelling. Past Medical History: Diagnosis Date ??? Cancer [...] 5 mg by mouth once daily ??? apixaban [...] by mouth once daily as needed ??? furosemide (LASIX) 80 MG tablet Take 80 mg by mouth 2 times daily ??? polyethylene glycol 3350 (MIRALAX) 17 [...] ??? vitamin D, ergocalciferol, (DRISDOL) 1.25 MG (09486 UT) capsule Take 50,000 Units by mouth every 30 days No current facility-administered medications on file prior to visit. Social History Tobacco Use ??? Smoking status: Former Smoker Quit date: 10/12/2012 Years since quittin.4 ??? Smokeless tobacco: Never Used Vaping Use [...] patient who understands and wishes to proceed. SHOP CLEANER * Mario Iyer MD - 03/26/2021 11:43 AM CST This patient? s prior H&P was reviewed, the patient was examined and no change has occurred in the patient's condition since the prior H&P was completed. Mario Iyer MD SHOP CLEANER documented in this encounter Procedure Notes * Mario Iyer MD - 03/26/2021 12:43 PM CSTAssociated Order(s): IR ANGIO AV SHUNT IMAGING [facility] Jules Mitchell 1945 DATE OF PROCEDURE: 03/26/2021 ORDERING PHYSICIAN: Mario Iyer MD PROCEDURE: 1. Left upper arm AV graft fistulogram showing high-grade stenosis within the graft, at the venous anastomosis, and occlusion of the left innominate vein. 2. Peripheral venous angioplasty of the intragraft stenosis and venous anastomosis stenosis with an8 x 4 balloon. 3. Central venous angioplasty of the left innominate vein with a 12 x 4 balloon. 4. IV conscious sedation. INDICATIONS FOR PROCEDURE: Increased pulsatility of right upper arm AV graft with prolonged bleeding at dialysis. DESCRIPTION OF PROCEDURE: Once the patient was prepped and draped in the usual sterile fashion. Was given 1 percent lidocaine as local anesthetic. The micropuncture set was used to cannulate the right upper arm AV graft. Fistulogram was obtained which showed a excellent retrograde flow back to the arterial anastomosis but there was high-grade stenosis within the graft. 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 The tract was dilated and a 7 Rwandan sheath was inserted. Patient was given IV conscious sedation by the surgeon and this was monitored by the nursing staff during the procedure for 30 minutes postoperatively. This included 0.5 mg of Versed and 100 mcg of fentanyl. The 7 x 4 balloon was 1st inserted and we did needle help getting the guidewire through the venous anastomosis. Angioplasty of this area and the intragraft stenosis was performed with good results. We then followed this with a 8 x 4balloon and obtained excellent results on completion angiography. We then had to use a Kumpe catheter to get through the occluded right innominate vein. We pre-dilated the innominate vein with an 8 x4 balloon and then followed this with a 12 x 4 balloon which yielded excellent results on completion angiography. Patient tolerated the procedures well was found to be stable postoperatively. Preopera tively the patient understood the risks of procedure be bleeding and infection want to proceed. During the procedure we used 40 cc of Isovue and 10.4 mGy. DICTATED BY: Mario Iyer M.D./isacc Interventional Post-Operative/Procedure Notes Surgeon: Mario Iyer MD Pre Procedure Diagnosis: ESRD Post Procedure Diagnosis: ESRD Anesthesia: Local 1% lidocaine and IV sedation Disposition: OPS Status: Stable Drain or Pack: None Additional Information/Complications: None Estimated Blood Loss: Negligible Specimen: None SHOP CLEANER documented in this encounter Plan of Treatment Upcoming Encounters Date Type Department Care Team (Late st Contact Info) Description 08/23/2024 1:00 PM CDT Appointment [facility] Vascular Services [address] [facility], [address] [place] [address] [place] [address] [facility] [address] [place] [phone] [place] [address] [facility] [address] [place] [address] documented as of this encounter Procedures Procedure Name Priority Date/Time Associated Diagnosis Comments CARDIAC RHYTHM STRIP ORDER 04/09/2021 11:51 PM BAKESHOP CLEANER IR ANGIO AV SHUNT IMAGING Routine 03/26/2021 12:40 PM BAKESHOP CLEANER Encounter regarding vascular access for dialysis for end-stage renal disease (HCC) documented in this encounter Results * CARDIAC RHYTHM STRIP ORDER (04/09/2021 11:51 PM BAKESHOP CLEANER) Narrative 04/09/2021 11:51 PM BAKESHOP CLEANER Ordered by an unspecified provider. Scanned Document CARDIAC SERVICES ORD ERABLES * IR ANGIO AV SHUNT IMAGING (03/26/2021 12:40 PM BAKESHOP CLEANER) Anatomical Region Laterality Modality Lower Extremity, Upper Extremity, Chest X-Ray Angiography Narrative 03/26/2021 12:43 PM BAKESHOP CLEANER Mario Iyer MD ? 03/26/2021 12:[address] [facility] 1945 DATE OF PROCEDURE: 03/26/2021 ORDERING PHYSICIAN: Mario Iyer MD PROCEDURE: ??1. ?Left upper arm AV graft fistulogram showing high-grade stenosis within the graft, at the venous anastomosis, and occlusion of the left innominate vein. ?2. ? Peripheral venous angioplasty of the intragraft stenosis and venous anastomosis stenosis with an 8 x 4 balloon. ?3. ? Central venous angioplasty of the left innominate vein with a 12 x 4 balloon. ?4. ? IV conscious sedation. ?? INDICATIONS FOR PROCEDURE: ?Increased pulsatility of right upper arm AV graft with prolonged bleeding at dialysis. DESCRIPTION OF PROCEDURE: ? Once the patient was prepped and draped in the usual sterile fashion. ??Was given 1 percent lidocaine as local anesthetic. ??The micropuncture set was used to cannulate the right upper arm AV graft. ??Fistulogram was obtained which showed a excellent retrograde flow back to the arterial anastomosis but there was high-grade stenosis within the graft. 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 ??The tract was dilated and a 7 Rwandan sheath was inserted. ??Patient was given IV conscious sedation by the surgeon and this was monitored by the nursing staff during the procedure for 30 minutes postoperatively. ??This included 0.5 mg of Versed and 100 mcg of fentanyl. ??The 7 x 4 balloon was 1st inserted and we did needle help getting the guidewire through the venous anastomosis. ??Angioplasty of this area and the intragraft stenosis was performed with good results. ??We then followed this with a 8 x 4 balloon and obtained excellent results on completion angiography. ??We then had to use a Kumpe catheter to get through the occluded right innominate vein. ??We pre-dilated the innominate vein with an 8 x 4 balloon and then followed this with a 12 x 4 balloon which yielded excellent results on completion angiography. ??Patient tolerated the procedures well was found to be stable postoperatively. ??Preoperatively the patient understood the risks of procedure be bleeding and infection want to proceed. During the procedure we used 40 cc of Isovue and 10.4 mGy. DICTATED BY: ??Mario Iyer M.D./isacc Interventional [...] 50 mL/hr, Intravenous, INTRA-PROCEDURE MULTIPLE, Starting on Fri03/26/21 at 1149, Until Fri03/27/21 at 0144, Intra-procedure (IR) $ New Bag/Syringe 03/26/2021 12:42 PM BAKESHOP CLEANER 100 mL 50 mL/hr fentaNYL (PF) (Sublimaze) injection 25-100 mcg 25-100 mcg, Intravenous, INTRA-PROCEDURE MULTIPLE, Starting on Fri03/26/21 at 1149, Until Fri03/27/21 at 0144, Administer every 5 minutes during procedure as needed for sedation. Dose to be determined by physician., Intra-procedure (IR) $ Given 03/26/2021 12:20 PM BAKESHOP CLEANER 100 mcg iopamidol (Isovue 300) 61 % contrast Intravenous, INTRA-PROCEDURE MULTIPLE, Starting on Fri03/26/21 at 1149, Until Fri03/27/21 at 0144, Intra/Post-procedure $ Given - Contrast 03/26/2021 12:42 PM BAKESHOP CLEANER 100 mL lidocaine PF (Xylocaine MPF) 1 % injection Infiltration, INTRA-PROCEDURE MULTIPLE, Starting on Fri03/26/21 at 1149, Until Fri03/27/21 at 0144, Intra-procedure (IR) $ Given 03/26/2021 12:16 PM BAKESHOP CLEANER 30 mg midazolam (Versed) injection 0.5-2 mg 0.5-2 mg, Intravenous, INTRA-PROCEDURE MULTIPLE, Starting on Fri03/26/21 at 1149, Until Fri03/27/21 at 0144, Administer every 5 minutes during procedure as needed for sedation. Dose to be determined by physician., Intra-procedure (IR) $ Given 03/26/2021 12:20 PM BAKESHOP CLEANER 0.5 mg documented in this encounter Care Teams Assurance Auditor Relationship Specialty Start Date End Date Kwame Berg MD PCP - General Internal Medicine 01/19/19 [place] [address] [address] Orthopedic Surgery Orthopedic Surgery 10/13/19 documented as of this encounter
--- OUTSIDE RECORDS SUMMARY | 2024-04-25 21:19 | XMS_ITS | Encounter Summary ---
Author Organization [facility] Address [address] [place] [address] Care Team Providers Care Stone Banker Name Role Phone Kwame Berg MD Primary Care Provider [phone] Dylon Agudelo MD Unavailable [phone] Reason for Referral * Radiology Services (Routine) - Closed Specialty Diagnoses / Procedures Referred By Duranac t Referred To Contact Diagnoses Mechanical complication of AV shunt, initial encounter (HCC) Procedures IR ANGIO AV SHUNT IMAGING Tyshawn Heller MD [address] [place] [phone] Referral ID Status Reason Start Date Expiration Date Visits Re quested Visits Authorized [id number] Closed 12/20/2020 12/20/2021 1 1 * Radiology Services (Routine) - Closed Specialty Diagnoses / Procedures Referred By Vivienne burrell Referred To Contact Diagnoses Mechanical complication of AV shunt, initial encounter (HCC) Procedures IR ANGIO AV SHUNT IMAGING Tyshawn Heller MD [address] [place] [phone] Referral ID Status Reason Start Date Expiration Date Visits Re quested Visits Authorized [id number] Closed 12/20/2020 12/20/2021 1 1 Reason for Visit * Radiology Services (Routine) - Closed Specialty Diagnoses / Procedures Referred By Contlacy t Referred To Contact Diagnoses ESRD (end stage renal disease) (HCC) Procedures IR [place]GIO [place] [address] [facility] [address] [place] [address] Referral ID Status Reason Start Date Expiration Date Visits Re quested Visits Authorized [id number] Closed 04/10/2020 04/10/2021 1 1 Encounter Details Date Type Department Care Team (Latest Contact Info) Description 12/20/2020 11:40 AM CDT - 12/20/2020 11:59 PM CDT Hospital Encounter [facility] Vascular Services [address] [facility], [address] [place], [place] [id number] Tyshawn Heller MD [address] [place] [address] Haja Marrufo MD Halverson, Lewis C, MD [address] [place] [address] [place] [address] [facility] [address] [place] [address] Discharge Disposition: Home or Self [...] Sign Reading Time Taken Comments Blood Pressure 156/59 12/20/2020 1:16 PM CDT Pulse 64 12/20/2020 1:16 PM CDT Temperature 37.1 ??C (98.8 ??F) 12/20/2020 11:57 AM C DT Respiratory Rate 9 12/20/2020 1:16 PM CDT Oxygen Saturation 93% 12/20/2020 1:16 PM CDT Inhaled Oxygen Concentration - - Weight - - Height 157.5 cm (5' 2.01) 12/20/2020 11:57 AM C DT Body Mass Index - - documented in [...] 10/21/2022 vitamin D, ergocalciferol, (DRISDOL) 1.25 MG (56269 UT) capsule Take 1 (one) capsule by mouth every 30 days 10/18/2022 documented as of this encounter Progress Notes * Radha Fields RN - 12/20/2020 12:00 PM CDT Right upper access is positive for thrill and pulse, no concerns with dialysis treatments. documented in this encounter H&P Notes * Tyshawn Heller MD - 12/20/2020 12:37 PM CDT INVASIVE PROCEDURE H&P / SEDATION PLAN OF CARE Chief Complaint / History of Present Illness: ESRD, increased pulsatility Additional Diagnosis: Mechanical complication of AV shunt, initial encounter [T82.701A] Procedure Planned: RUE fistulogram w poss water vessel captain/stent/declot Past Medical History Illnesses: Past Medical History: Diagnosis Date ??? Cancer 2000 pt unsure of type of cancer ??? Chronic kidney disease ??? ESRD (end stage renal disease) [facility] [phone] -t,th,sat 04/10/2020 ??? High blood pressure ??? Pure hypercholesterolemia ??? Stroke per pt EXAM: BP 126/63 Pulse 74 Temp 98.8 ??F (37.1 ??C) Resp 14 Ht 1.575 m (5' 2.01) SpO2 99% BMI 24.63 kg/m2 General appearance: alert, cooperative, no distress Heart: Regular rate Lungs: breath sounds normal; no audible wheezes Extremities: no cyanosis or edema, increased pulsatility RUE fistula Possible Sedation: Fentanyl, Versed, 1% plain lidocaine [...] Limitations Airway: Patent Monitoring: heart rate, monitor car operator, continuous pulse oximetry, frequent blood pressure checks,level of consciousness, IV access, constant attendance by RN until patient recovered and intubationand emergency airway equipment available. documented in this encounter Procedure Notes * Tyshawn Heller MD - 12/20/2020 1:13 PM CDTAssociated Order(s): IR ANGIO AV SHUNT IMAGING Surgeon: Tyshawn Heller MD Pre-Procedure diagnosis: ESRD, increased pulsatiliry Time out and final pre-procedure assessment completed [...] Anesthesia just beyond the arterial anastomosis was obtain with lidocaine and the graft was punctured an antegrade manner with a micropuncture needle followed by a 0.018 wire and transitional sheath. Contrast injection demonstrated patency of the graft. There is recurrent high-grade stenosis noted at the venous anastomosis. The remaining upper extremity venous outflow appear to be unremarkable. Recurrent high-grade stenosis noted involving the subclavian vein through the proximal superior vena cava. The transitional sheath was then exchanged for a 7 Georgian short dialysis sheath. The central subclavian vein and superior vena cava or then angioplastied using a 14 mm diameter balloon. Multiple prolonged inflations were performed. Repeat contrast injection demonstrated significant improvement withsome mild rebound however no reflux into the venous structures in the upper chest and neck were identified indicating hemodynamically significant improvement. The venous anastomosis was then angioplasty using an 8 mm diameter balloon with mild rebound noted but significant improvement post angioplasty. Reflux injection demonstrated an unremarkable arterialanastomosis. Moderate IV conscious sedation was administered using 0.5 mg of Versed and 100 mcg of fentanyl. Thepatient was independently monitored by registered nurse 4 15 min using automated blood pressure, EKG and pulse oximetry. There were no complications. Isovue 30 cc, exposure does 11.5 mGy Disposition: Home Status: Stable Drain or Pack: None Additional information/Complications: None Estimated blood loss: negligible Specimen(s) removed: No Specimen During the post-procedure debrief all intra-procedure verbal order medications ordered by the proceduralist were reviewed and authenticated. documented in this encounter Plan of Treatment Upcoming Encounters Date Type Department Care Team (Late st Contact Info) Description 08/23/2024 1:00 PM CDT Appointment [facility] Vascular Services [address] [facility], [address] [place] [address] [place] [address] [facility] [address] [place] [phone] [place] [address] [facility] [address] [place] [address] documented as of this encounter Procedures Procedure Name Priority Date/Time Associated Diagnosis Comments CARDIAC RHYTHM STRIP ORDER 12/22/2020 10:32 PM CDT IR ANGIO AV SHUNT IMAGING Routine 12/20/2020 1:12 PM CDT Mechanical complication of AV shunt, initial encounter (HCC) documented in this encounter Results * CARDIAC RHYTHM STRIP ORDER (12/22/2020 10:32 PM CDT) Narrative 12/22/2020 10:32 PM CDT Ordered by an unspecified provider. Scanned Document CARDIAC SERVICES ORD ERABLES * IR ANGIO AV SHUNT IMAGING (12/20/2020 1:12 PM CDT) Anatomical Region Laterality Modality Lower Extremity, Upper Extremity, Chest X-Ray Angiography Narrative 12/20/2020 1:13 PM CDT Tyshawn Heller MD ? 12/20/2020 ??1:20 PM Surgeon: Tyshawn Heller MD Pre-Procedure diagnosis: ESRD, increased pulsatiliry Time out and final pre-procedure assessment completed [...] and draped in the usual sterile fashion. ?? Anesthesia just beyond the arterial anastomosis was obtain with lidocaine and the graft was punctured an antegrade manner with a micropuncture needle followed by a 0.018 wire and transitional sheath. ??Contrast injection demonstrated patency of the graft. ?? There is recurrent high-grade stenosis noted at the venous anastomosis. ??The remaining upper extremity venous outflow appear to be unremarkable. 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 The transitional sheath was then exchanged for a 7 Georgian short dialysis sheath. ??The central subclavian vein and superior vena cava or then angioplastied using a 14 mm diameter balloon. ?? Multiple prolonged inflations were performed. ??Repeat contrast injection demonstrated significant improvement with some mild rebound however no reflux into the venous structures in the upper chest and neck were identified indicating hemodynamically significant improvement. The venous anastomosis was then angioplasty using an 8 mm diameter balloon with mild rebound noted but significant improvement post angioplasty. ??Reflux injection demonstrated an unremarkable arterial anastomosis. Moderate IV conscious sedation was administered using 0.5 mg of Versed and 100 mcg of fentanyl. ??The patient was independently monitored by registered nurse 4 15 min using automated blood pressure, EKG and pulse oximetry. ??There were no complications. Isovue 30 cc, exposure does 11.5 mGy Disposition: Home Status: Stable Drain or Pack: None Additional information/Complications: None Estimated blood loss: negligible Specimen(s) removed: No Specimen During the post-procedure debrief all intra-procedure verbal order medications ordered by the proceduralist were reviewed and authenticated. Tyshawn Heller MD IR ORDERABLES documented in this encounter Visit Diagnoses Diagnosis Mechanical complication of AV shunt, initial encounter (HCC)- Primary documented in this encounter Administered Medications Inactive Administered Medications - up to 3 most recent administrations Medication Order MAR Action Action Date Dose Rate Site 0.9% NaCl infusion at 50 mL/hr, Intravenous, INTRA-PROCEDURE MULTIPLE, Starting on 12/20/20 at 1230, Until Susan 12/21/20 at 0141, Intra-procedure (IR) $ New Bag/Syringe 12/20/2020 1:14 PM CDT 200 mL 50 mL/hr fentaNYL (PF) (Sublimaze) injection 25-100 mcg 25-100 mcg, Intravenous, INTRA-PROCEDURE MULTIPLE, Starting on Fri12/20/20 at 1230, Until Susan 12/21/20 at 0141, Administer every 5 minutes during procedure as needed for sedation. Dose to be determined by physician., Intra-procedure (IR) $ Given 12/20/2020 1:05 PM CDT 50 mcg $ Given 12/20/2020 12:54 PM CDT 50 mcg iopamidol (Isovue 300) 61 % contrast Intravenous, INTRA-PROCEDURE MULTIPLE, Starting on Fri12/20/20 at 1230, Until Susan 12/21/20 at 0141, Intra/Post-procedure $ Given - Contrast 12/20/2020 1:14 PM CDT 30 mL lidocaine PF (Xylocaine MPF) 1 % injection Infiltration, INTRA-PROCEDURE MULTIPLE, Starting on Fri12/20/20 at 1230, Until Susan 12/21/20 at 0141, Intra-procedure (IR) $ Given 12/20/2020 12:50 PM CDT 2 mL midazolam (Versed) injection 0.5-2 mg 0.5-2 mg, Intravenous, INTRA-PROCEDURE MULTIPLE, Starting on Fri12/20/20 at 1230, Until Susan 12/21/20 at 0141, Administer every 5 minutes during procedure as needed for sedation. Dose to be determined by physician., Intra-procedure (IR) $ Given 12/20/2020 12:54 PM CDT 0.5 mg documented in this encounter Care Teams Stone Banker Relationship Specialty Start Date End Date Kwame Berg MD PCP - General Internal Medicine 01/19/19 [place] [address] [address] Orthopedic Surgery Orthopedic Surgery 10/13/19 documented as of this encounter
--- OUTSIDE RECORDS SUMMARY | 2024-04-25 21:19 | XMS_ITS | Encounter Summary ---
Author Organization [facility] Address [facility] [place] [address] Care Team Providers Care Lining Feller Name Role Phone Kwame Berg MD Primary Care Provider [phone] Dylon Agudelo MD Unavailable [phone] Encounter Details Date Type Department Care Team (Latest Contact Info) Description 01/20/2020 3:12 PM CDT Hospital Encounter [facility] [address] [place] [id number] Mike Alexandre MD [facility] [address] [place] [phone] Gabriel Magaña MD [address] [place] [address] [employer] Social History Tobacco Use Types Packs/Day Years [...] 1:00 PM CDT Appointment [facility] Health Vascular Services [address] [facility], [address] [place] [address] [place] [address] [facility] [address] [place] [address] [place] [address] [facility] [address] [place] [address] documented as of this encounter Visit Diagnoses Not on filedocumented in this encounter Care Teams Lining Feller Relationship Specialty Start Date End Date Kwame Berg MD PCP - General Internal Medicine 01/19/19 [place] [address] [facility] [address] [place] [address] Orthopedic Surgery Orthopedic Surgery 10/13/19 documented as of this encounter
--- OUTSIDE RECORDS SUMMARY | 2024-04-25 21:19 | XMS_ITS | Encounter Summary ---
Author Organization [facility] Address [address] [facility] [place] [address] Care Team Providers Care Transport Engineer Name Role Phone Kwame Berg MD Primary Care Provider [phone] Dylon Agudelo MD Unavailable [phone] Reason for Visit * Reason Onset Date Comments Surgery Scheduling 02/16/2020 Encounter Details Date Type Department Care Team (Late st Contact Info) Description 02/16/2020 Telephone [facility] - Surgery [address] [facility], [address] [address] [place] [address] [address] Surgery Scheduling Social History Tobacco [...] encounter Miscellaneous Notes * Telephone Encounter - Leyla Howard - 02/16/2020 10:49 AM CDT Spoke with Wild and advised that the sooner surgery is scheduled as patient has a catheter in place and the longer this remains in the higher risk for infection. Patient just got out of the hospital and he would like to wait a couple of weeks. He states that he will call back to schedule. * Telephone Encounter - Liz Medina - 02/16/2020 10:35 AM CDT Called patient to schedule HD access surgery, nephew Wild Long answered. Nephew is listed on HIPPA. Nephew needs to check work schedule and will call back to schedule patient's access surgery. Nephew is also asking, how soon is HD access surgery needed and would like to discuss. documented in this encounter Plan of Treatment Upcoming Encounters Date Type Department Care Team (Late st Contact Info) Description 08/23/2024 1:00 PM CDT Appointment [facility] Vascular Services [address] [facility], [address] [place] [address] [place] [address] [facility] [address] [place] [address] [place] [address] [facility] [address] [place] [address] documented as of this encounter Visit Diagnoses Not on filedocumented in this encounter Care Teams Transport Engineer Relationship Specialty Start Date End Date Kwame Berg MD PCP - General Internal Medicine 01/19/19 [place] [address] [facility] [address] [place] [phone] Orthopedic Surgery Orthopedic Surgery 10/13/19 documented as of this encounter
--- OUTSIDE RECORDS SUMMARY | 2024-04-25 21:19 | XMS_ITS | Encounter Summary ---
Author Organization [facility] Address [address] [facility] [place] [address] Care Team Providers Care Field Service Technician Poultry Name Role Phone Kwame Berg MD Primary Care Provider [phone] Dylon Agudelo MD Unavailable [phone] Reason for Visit * Reason Comments Surgical Follow-up pov 3 weeks lft hip Encounter Details Date Type Department Care Team (Late st Contact Info) Description 02/11/2020 9:40 AM CDT Office Visit [facility] Orthopedics [address] [facility], [address] [address] [place] [address] [address] Pain of left hip joint (Primary Dx); Status post left hip replacement on 01/12/20 Social History Tobacco Use Types Packs/Day Years [...] Progress Notes * Dylon Agudelo MD - 02/11/2020 10:07 AM CDT ORTHOPAEDIC CLINIC NOTE NAME: Jules Mitchell DATE OF SERVICE: DATE: 1945 PCP: Kwame Berg MD Chief Complaint Patient presents with ??? Surgical Follow-up pov 3 weeks lft hip HISTORY: Jlues Mitchell is a 74 year old male who presents for follow up regarding a left CARLOZ, superior@ 3 week(s). The patient rates his pain as a 2 out of 10. He is taking Eliquis. His nephew states his pain is significantly improved from preop and that he is getting around well. ALLERGIES: Allergies as of 02/11/2020 ??? (No Known Allergies) PHYSICAL EXAMINATION: General appearance: alert, cooperative, no distress. Extremities: Skin: healed incision Swelling: mild ROM: full Strength: 4 on 5 Gait: cane Neurological Exam: thigh numbness Vascular Exam: normal RADIOGRAPHS: AP and lateral X-rays of the left hip reveal a CARLOZ in the expected position ASSESSMENT: left CARLOZ @ 3 weeks PLAN: Wean assistive device use HEP Wean PO pain meds ASA 81 mg BID for 4 weeks RTC 3 weeks documented in this encounter Procedure Notes * Debi Tapia RT(R) - 02/11/2020 9:40 AM CDTAssociated Order(s): XR HIP LEFT 2VW OR MORE See progress notes for results documented in this encounter Plan of Treatment Upcoming Encounters Date Type Department Care Team (Late st Contact Info) Description 08/23/2024 1:00 PM CDT Appointment [facility] Health Vascular Services [address] [facility], [address] [place] [address] [place] [address] [facility] [address] [place] [phone] [place] [address] [facility] [address] [place] [address] documented as of this encounter [...] Visit Diagnoses Diagnosis Pain of left hip joint- Primary Status post left hip replacement on 01/12/20 Hip joint replacement by other means Pain of left hip joint documented in this encounter Care Teams Field Service Technician Poultry Relationship Specialty Start Date End Date Kwame Berg MD PCP - General Internal Medicine 01/19/19 [place] [address] [facility] [address] [place] [phone] Orthopedic Surgery Orthopedic Surgery 10/13/19 documented as of this encounter
--- OUTSIDE RECORDS SUMMARY | 2024-04-25 21:20 | XMS_ITS | Encounter Summary ---
Author Organization [facility] Address [address] [place] [place] [address] Care Team Providers Care Alteration Hand Name Role Phone Kwame Berg MD Primary Care Provider [phone] Dylon Agudelo MD Unavailable [phone] Encounter Details Date Type Department Care Team (Latest Contact Info) Description 01/09/2020 6:17 PM CDT - 01/09/2020 11:59 PM CDT Hospital Encounter [facility] [address] [place] [address] [place] [address] [facility] [address] [place] [phone] Discharge Disposition: Home or Self Care Social [...] AM CDT documented as of this encounter Medications at [...] 5 mg by mouth once daily 08/15/2019 01/20/2020 aspirin (ASPIRIN) 81 MG chew tablet Take 1 tablet by mouth 2 times daily with morning and evening meal 01/15/2020 01/18/2020 dilTIAZem coated beads 24hr (CARDIZEM CD) 120 MG capsule Take 1 capsule by mouth once daily Do not crush or chew. 30 capsule 01/17/2020 01/16/2022 docusate sodium (COLACE) 100 MG capsule Take 100 mg by mouth once daily as needed 05/28/2019 01/16/2022 epoetin ashly-EPBX (RETACRIT) 4000 UNIT/ML injectionIndications :ESRD (end stage renal disease) ([facility]) Inject 4,000 Units subcutaneously every 7 days 01/20/2020 09/13/2020 folic acid (FOLVITE) 1 MG tablet Take 1 mg by mouth once daily 03/24/2019 01/20/2020 HYDROcodone-acetamin ophen (NORCO) 10-325 MG tablet Take [...] tablet by mouth once daily 07/05/2019 10/21/2022 traMADol (ULTRAM) 50 MG tablet Take 1 tablet by mouth 2 times daily as needed for Pain 60 tablet 11/19/2019 01/20/2020 documented as of this encounter Plan of Treatment Upcoming Encounters Date Type Department Care Team (Late st Contact Info) Description 08/23/2024 1:00 PM CDT Appointment [facility] Vascular Services [address] [facility], [address] [place] [address] [place] [address] [facility] [address] [place] [address] [place] [address] [facility] [address] [place] [address] documented as of this encounter Procedures Procedure Name Priority Date/Time Associated Diagnosis Comments SARS-COV-2 (COVID-19) IN HOUSE Routine 01/09/2020 2:00 PM CDT Preop examination documented in this encounter Results * SARS-COV-2 (COVID-19) PRE-SURGICAL/PROCEDURE (01/09/2020 2:00 PM CDT) COVID-19 PCR Not detected Not detected, Invalid 01/10/2020 2:07 PM CDT [facility] Microbiology SPECIMEN FROM NASOPHARYNGEAL STRUCTURE / Unknown Collection / Unknown 01/09/2020 2:00 PM CDT 01/09/2020 7:26 PM CDT Narrative [facility] - 01/10/2020 2:07 PM CDT This Real Time RT-PCR assay was developed and its performance characteristics determined by [facility]. This test has been [...] Agudelo MD LAB - MICROBIOLOGY O RDERABLES [facility] [address] [place] [address] [phone] documented in this encounter Visit Diagnoses Diagnosis Preop examination Preoperative examination, unspecified documented in this encounter Care Teams Alteration Hand Relationship Specialty Start Date End Date Kwame Berg MD PCP - General Internal Medicine 01/19/19 [place] [address] [address] Orthopedic Surgery Orthopedic Surgery 10/13/19 documented as of this encounter
--- OUTSIDE RECORDS SUMMARY | 2024-04-25 21:20 | XMS_ITS | Encounter Summary ---
Author Organization [facility] Address [address] [facility] [place] [address] Care Team Providers Care Circular Saw Edge Fuser Name Role Phone Kwame Berg MD Primary Care Provider [phone] Dylon Agudelo MD Unavailable [phone] Reason for Visit * Reason Comments Follow-up Encounter Details Date Type Department Care Team (Latest Contact Info) Description 12/10/2019 10:40 AM CDT Office Visit [facility] [id number] [place] [phone] [place] [address] [address] Anemia, unspecified type (Primary Dx); ESRD (end stage renal disease) (HCC); Primary osteoarthritis of left hip Social History Tobacco Use Types Packs/Day Years [...] Sign Reading Time Taken Comments Blood Pressure 156/48 12/10/2019 11:01 AM CDT Pulse 70 12/10/2019 11:01 AM CDT Temperature 37 ??C (98.6 ??F) 12/10/2019 11:01 AM CDT Respiratory Rate 20 12/10/2019 11:01 AM CDT Oxygen Saturation 100% 12/10/2019 11:01 AM CDT Inhaled Oxygen Concentration - - Weight 63.1 kg (139 lb 3.2 oz) 12/10/2019 11:01 AM CDT Height 157.5 cm (5' 2) 12/10/2019 11:01 AM CDT Body Mass Index 25.46 12/10/2019 11:01 AM CDT documented in this encounter Patient Instructions * Patient Instructions* Lucy Girard MD - 12/10/2019 11:10 AM CDT RTC in 3 months with CBC documented in this encounter Progress Notes * Lucy Girard MD - 12/10/2019 11:06 AM CDT Hematology Clinic Follow up Date of Visit: 12/10/2019 Patient Name: Jules Mitchell is a 74 year old male = [address] Oscar Agudelo PCP: Kwame Berg MD Reason for Visit: Anemia, ESRD, perioperative optimization prior to left hip arthroplasty HPI: Jules Mitchell is a 74 year old man here for preoperative anemia evaluation after he was referred by Dr Agudelo prior to left hip arthroplasty. His PMH includes ESRD on HD (Dr kodak Blackman), chronic anemia, osteoarthritis, Hypercholesterolemia, HTN and DM. He was admitted back in April for fluid overload and during his hospitalization, his HB was in the range of 8-10 g/dl. I previously spoke to Dr Blackman and he has been getting IV Iron and MILA support during hemodialysis. His left hip surgery scheduled for end november. Hemoglobin today 11.2 g/dl. Ferritin is high and vitamin B12/folate normal. PMH: ??Type 2 diabetes mellitus ?Anemia of chronic renal failure ?Chronic kidney disease, Stage V ?Essential hypertension ?Hypertension ?Malignant neoplasm of prostate ?Moderate malnutrition ?Other hyperlipidemia ?ESRD on HD TTS ?Diastolic dysfunction ?Seroma ?Abnormality of gait ?Toxic metabolic encephalopathy ?? PSH: Past Surgical History: Procedure Laterality Date ??? NEGATIVE SURGICAL HISTORY Medications: Outpatient Encounter Medications as of 10/13/2019 Medication Sig Dispense Refill ??? allopurinol (ZYLOPRIM) 100 MG tablet ??? amLODIPine (NORVASC) 5 MG tablet Take 5 mg by mouth once daily ??? atorvastatin (LIPITOR) 20 MG tablet TK 1 T PO QD 0 ??? cyclobenzaprine (FLEXERIL) 10 MG tablet TK 1 T PO TID ??? diclofenac sodium (VOLTAREN) 1 % gel FRANKY AA TID 11 ??? docusate sodium (COLACE) 100 MG capsule Take 100 mg by mouth once daily ??? donepezil (ARICEPT) 10 MG tablet TK 1 T PO QD ??? folic acid (FOLVITE) 1 MG tablet TK 1 T PO QD ??? furosemide (LASIX) 80 MG tablet TK 1 T PO BID ??? lisinopril (PRINIVIL;ZESTRIL) 5 MG tablet Take 5 mg by mouth once daily ??? oxybutynin (DITROPAN) 5 MG tablet Take 5 mg by mouth once daily ??? oxyCODONE-acetaminophen (PERCOCET) 5-325 MG tablet Take 1 tablet by mouth every 6 hours as needed ??? polyethylene glycol 3350 (MIRALAX) 17 g packet MIX 1 PACKET IN 8 OUNCES OF FLUID AND DRINK QD ??? rOPINIRole (REQUIP) 0.5 MG tablet TK 1 T PO THREE TIMES WEEKLY WITH DIALYSIS ??? sevelamer carbonate (RENVELA) 800 MG Take 800 mg by mouth 3 times daily ??? sodium bicarbonate 325 MG tablet Take 325 mg by mouth once daily ??? tamsulosin (FLOMAX) 0.4 MG capsule TK 1 C PO QD ??? traMADol (ULTRAM) 50 MG tablet Take 1 tablet by mouth 2 times daily as needed for Pain 60 tablet 0 No facility-administered encounter medications on file as of 10/13/2019. Allergy: No Known Allergies Family history: Family History Problem Relation Name Age of Onset ??? Hypertension Mother ??? Hypertension Sister ??? Diabetes - Type 2 Sister Social history: Social History Socioeconomic History ??? Marital status: Single Spouse name: Not on file ??? Number of children: Not on file ??? Years of education: Not on file ??? Highest education level: Not on file Occupational History ??? Not on file Social Needs ??? Financial resource strain: Not on file ??? Food insecurity Worry: Not on file Inability: Not on file ??? Transportation needs Medical: Not on file Non-medical: Not on file Tobacco Use ??? Smoking status: Former Smoker Last attempt to quit: 10/12/2012 Years since quittin.0 ??? Smokeless tobacco: Never Used Substance and Sexual Activity ??? Alcohol use: Not Currently ??? Drug use: Never ??? Sexual activity: Not on file Lifestyle ??? Physical activity Days per week: Not on file Minutes per session: Not on file ??? Stress: Not on file Relationships ??? Social connections Talks on phone: Not on file Gets together: Not on file Attends latter day service: Not on file Active member of club or organization: Not on file Attends meetings of clubs or organizations: Not on file Relationship status: Not on file ??? Intimate partner violence Fear of current or ex partner: Not on file Emotionally abused: Not on file Physically abused: Not on file Forced sexual activity: Not on file Other Topics Concern ??? Not on file Social History Narrative ??? Not on file Review of Systems A comprehensive review of systems was performed. The rest pertinent positives and/or negatives werenoted in the HPI. Depression: PHQ-2:TOTAL POINT SCORE: 0 PHQ-9: Physical Examination: BP 156/48 (BP SITE: LEFT ARM, BP POSITION: SITTING, BP CUFF SIZE: 11) Pulse 70 Temp 98.6 ??F (37 ??C) (Temporal) Resp 20 Ht 5' 2 (1.575 m) Wt 139 lb 3.2 oz (63.1 kg) SpO2 100% BMI 25.46 kg/m2 General: Chronically sick-looking, ECOG 2 HEENT: Extra-ocular movements intact. Moist mucous membranes in oropharynx. Neck: Supple, without lymphadenopathy or thyromegaly. No carotid bruits. Lymph: No axillary, cervical, supraclavicular, pre-auricular, submental, or occipital lymphadenopathy Cardiovascular: Regular rate and rhythm, with normal S1 and S2. No murmurs, rubs, or gallops. Lungs: HD Cath in the right crest. Good bilateral airentrys throughout lung dooley Abdomen: Normoactive bowel sounds. Soft, flat, non-tender, and non-distended. No hepatosplenomegaly Skin: Warm, dry, well-perfused. No rashes or other lesions. Extremities: No lower extremity pain or edema; legs are symmetric in appearance. Neuro: Alert and oriented to person, place, and time. Able to communicate well. Psych: Appropriate affect. Pertinent Labs: Recent Labs Component Name 12/10/19 1049 10/13/19 1215 05/27/19 1913 WBC 4.0* 6.6 4.5 HGB 11.2* 11.7* 8.5* HCT 35.1* 37.3 28.2* PLTCOUNT 156 187 215 Component Latest Ref Rng & Units 10/13/2019 TIBC 250 - 450 ug/dL 172 (L) UIBC 111 - 343 ug/dL 58 (L) Iron 38 - 169 ug/dL 114 Iron Saturation 15 - 55 % 66 (H) Vitamin B12 213 - 816 pg/mL 279 Folate 7.0 - 31.4 ng/mL 17.2 Ferritin 22 - 275 ng/mL 4,981 (H) Erythropoietin 2.6 - 18.5 mIU/mL 10.8 SPEP = no M spike FLC ratio= normal Assessment & Plan Anemia of CKD ESRD on HD Osteoarthritis of left hip Patient has been on HD for over 6 months and lately he has been getting IV iron and Procrit during HD. He is scheduled for left hip surgery at the end of November 2019 Current hemoglobins 11.2 g/dl and from hematology perspective his good to go for the scheduled procedure RTC in 3 months with CBC Lucy Girard MD 12/10/2019 12:32 PM documented in this encounter Plan of Treatment Upcoming Encounters Date Type Department Care Team (Late st Contact Info) Description 08/23/2024 1:00 PM CDT Appointment [facility] Health Vascular Services [address] [facility], [address] [place] [address] [place] [address] [place] [phone] [place] [address] [place] [address] documented as of this encounter Procedures Procedure Name Priority Date/Time Associated Diagnosis Comments CBC W AUTO DIFFERENTIAL (CANCER CARE) Routine 12/10/2019 10:49 AM CDT Anemia, unspecified type documented in this encounter Results * (ABNORMAL) CBC W AUTO DIFFERENTIAL (CANCER [...] Girard MD LAB - HEMATOLOGY ORD ERABLES [facility] [address] [address] documented in this encounter Visit Diagnoses Diagnosis Anemia, unspecified type- Primary ESRD (end stage renal disease) (HCC) End stage renal disease Primary osteoarthritis of left hip Primary localized osteoarthrosis, pelvic region and thigh documented in this encounter Care Teams Circular Saw Edge Fuser Relationship Specialty Start Date End Date Kwame Berg MD PCP - General Internal Medicine 01/19/19 [place] [address] [address] Orthopedic Surgery Orthopedic Surgery 10/13/19 documented as of this encounter
--- OUTSIDE RECORDS SUMMARY | 2024-04-25 21:20 | XMS_ITS | Encounter Summary ---
Author Organization [facility] Address [address] [place] [address] Care Team Providers Care Premium Service Representative Name Role Phone Kwame Berg MD Primary Care Provider [phone] Dylon Agudelo MD Unavailable [phone] Encounter Details Date Type Department Care Team (Latest Contact Info) Description 12/22/2019 9:15 AM CDT - 12/22/2019 11:59 PM CDT Hospital [facility] [address] [facility] [address] [place] [address] [place] [address] [facility] [address] [place] [address] Discharge Disposition: Home or Self Care [...] have Coronavirus / COVID-19? No / Unsure 12/15/2019 2:17 PM CDT documented as of this encounter Last Filed Vital Signs Vital Sign Reading Time Taken Comments Blood Pressure 137/63 12/22/2019 9:38 AM CDT Pulse 68 12/22/2019 9:38 AM CDT Temperature 36.6 ??C (97.9 ??F) 12/22/2019 9:38 AM CD T Respiratory Rate - - Oxygen Saturation 98% 12/22/2019 9:38 AM CDT Inhaled Oxygen Concentration - - Weight 62 kg (136 lb 9.6 oz) 12/22/2019 9:38 AM CDT Height 157.5 cm (5' 2) 12/22/2019 9:38 AM CDT Body Mass Index 24.98 12/22/2019 9:38 AM CDT documented in this encounter Discharge Instructions * Patient Instructions* Abigail Rueda, WATCH GUARD GATE-BRAIDING MACHINE TENDER - 12/22/2019 9:15 AM CDT As we discussed, your potassium is elevated here today. I spoke directly with your shotblaster about this. He recommended the followin. Take one dose of Veltassa today. This was sent to the [facility] outpatient pharmacy. Please follow thedirections in order to take this 1 time dosing medication once you get home today. Additionally, please make sure that you have not taken any of your other medications at least 3 hours PRIOR to taking this medication, and DO NOT TAKE any other medications for 3 hours AFTER taking this medication. Take with water. 2. Make sure that you go to your normal dialysis session as scheduled for tomorrow, . 3.Continue trying to follow a low-potassium diet. 4.Please have the dialysis nurse call tomorrow when you arrive for the session. If you have any further questions about anything today, please make sure to give your shotblaster a call at any time. COVID Related Hospital Precautions When you arrive to the hospital the day of your surgery you will enter the [facility]. You will be screened by hospital staff at the [facility] and have your temperature checked prior to being admitted for surgery registration. We are currently requiring [place] Masking in the hospital. You will need to wear a mask into thehospital and at all times while admitted. We recommend that you bring a second mask with you. VISITOR GUIDELINES: Patients are allowed one designated support person for the duration of their stay with the following guidelines: ??? All visitors must wear a mask, even when in a patient's room. ??? Visitors will only be allowed between the hours of 10 a.m. and 6 p.m. ??? Everyone entering an [facility] Health facility will receive a health screening prior to entry, including a temperature check. ??? Guests must practice proper hand hygiene and appropriate social distancing. We recommend that you socially distance for 7-10 days prior to your procedure/surgery. YOU WILL NEED TO BE SWABBED FOR COVID-19 PREOPERATIVELY. You are recommended to get your COVID-19 testing done on 12/24/19. You will be required to self- quarantine from the day of your COVID-19 test until the day of surgery. A CURBSIDE PREPROCEDURAL COVID-19 TESTING SITE IS NOW AVAILABLE AT [facility]: Thank you for choosing [facility] for your care. You are scheduled for a procedure that requires preprocedural COVID-19 testing. The testing must be completed 3 days prior to your scheduled procedure. 1. Pull into a designated parking space that's marked with a GREEN SIGN. 2. Once parked in one of the designated GREEN SIGN parking spaces, please call one of the designated phone numbers and remain in your vehicle until a staff member arrives to perform the test. Call either [phone] or [phone]. 3. Please have a form of identification available. 4. Please call [phone] before you arrive. [facility] COVID-19 Testing [address] [place] [address] Friday through Friday 8 a.m. - 2 p.m. [address] or [phone] [facility] Clinics are located in the following [facility] HOURS: Friday-Friday 9 a.m. - 5 p.m. Friday, Friday and Holidays: 10 a.m. - 4 p.m. [facility] [address] [facility] [place] [address] [address] [place] [address] [address] [place] [address] [address] [place] [address] [place] [address] [place] [address] [address] [facility] Incentive Spirometer OVERIVEW The following provides an overview of how you will use the spirometer after your surgery. Our goal is for you to become familiar with usage prior to your surgery date, as this improves the ability touse properly. Please attempt to use 2-3 times daily in the week leading up to your surgery date. DO NOT bring this spirometer with you the day of surgery, as you will be provided a new one after your surgery. Using your incentive spirometer after surgery will help your lungs clear and will help keep your lungs active throughout the recovery process, as if you were performing your daily activities. How to use the incentive spirometer: 1. Sit on the edge of your bed if possible, or sit up as far as you can in bed. 2. Hold the incentive spirometer in an upright position. 3. Place the mouthpiece in your mouth and seal your lips tightly around it. 4. Breathe in slowly and as deeply as possible. Notice the yellow piston rising toward the top of the column. The yellow indicator should reach the blue outlined area. 5. Hold your breath as long as possible. Then exhale slowly and allow the piston to fall to fall tothe bottom of the column. 6. Rest for a few seconds and repeat steps one to 5 at least 10 times every hour. 7. Position the yellow indicatior on the left side of the spirometer to show your best effort. Use the indicator as a goal to work toward during each slow deep breath. 8. After each set of 10 deep breaths. Cough to be sure your lungs are clear. If you have an incision, support your incision when coughing by placing a pillow firmly against it. 9. Once you are able to get out of bed safely, take frequent walks and practice the cough. documented in this encounter Medications at Time of Discharge Medication Sig Dispensed Refills Start Date End Date allopurinol (ZYLOPRIM) 100 MG tablet Take 1 (one) tablet by mouth once daily 05/29/2019 atorvastatin (LIPITOR) 20 MG tablet Take 1 [...] mg by mouth once daily 08/15/2019 01/20/2020 docusate sodium (COLACE) 100 MG capsule Take 100 mg by mouth once daily as needed 05/28/2019 01/16/2022 folic acid (FOLVITE) 1 MG tablet Take 1 mg by mouth once daily 03/24/2019 01/20/2020 HYDROcodone-acetaminophe n (NORCO) 5-325 MG tablet Take 1 tablet by mouth every 6 hours as needed for Pain 30 tablet 10/20/2019 12/27/2019 lisinopril (PRINIVIL;ZESTRIL) 5 MG tablet Take 5 [...] 11/19/2019 01/20/2020 documented as of this encounter Progress Notes * Abigail Rueda, WATCH GUARD GATE-BRAIDING MACHINE TENDER - 12/22/2019 9:15 AM CDT PRESURGICAL OPTIMIZATION EVALUATION Patient Name: Jules Mitchell : 1945 SUBJECTIVE: Jules Mitchell is a 74 year old y.o. male presenting [facility]. He is scheduled for the followin12/27/19 LEFT POSTERIOR ??ARTHROPLASTY TOTAL HIP Dylon Agudelo MD Denies any problems with anesthesia in the past. Denies any family history of anesthetic complications. HTN, HLD- compliant w/ all meds. BP 137/63 today. ESRD on HD on T[facility]R-Sat at [facility]. Manager Supplier is Dr.David Blackman. Right chest cath for access currently. -went to normally scheduled full dialysis session yesterday, 12/21/19 -nephew, who accompanies pt to this visit today, states that potassium was high on his last labs done -- maybe around 5.7 he recalls -- he recalls pt was advised to follow a low-potassium diet. Type 2 DM- no meds for mgmt at present. No BS at home. Recent Labs Component Name 12/22/19 0948 HGBA1C 5.0 EAG 97 Anemia of CKD- H/H 11.2 / 35.1 on 12/10/19. Receives IV iron & procrit during HD. Recent OV withhematology for a preop optimization visit who documents: Current hemoglobins 11.2 g/dl and from hematology perspective his good to go for the scheduled procedure PCP is Dr.Bruce Berg -- PCP preoperative medical clearance documentation dated 12/17/19 is in Media. Patient denies h/o asthma, COPD, PE, LISA, HLD, CAD, CHF, heart murmur, heart arrhythmia, cardiac devices, stroke, seizure, neuromuscular diseases, bleeding/clotting disorders, thyroid disease, liver disease. Review of Systems: Denies chest pain, palpitations, irregular heart beat, syncope, STEWART, orthopnea, PND, or swelling ofthe feet or ankles. No cough, wheezing or shortness of breath Denies rash, open or unhealed sores and lesions Denies URI's in past 4-6 weeks. Denies palpitations, muscle pain, muscle weakness, numbness. Functional Status Assessment: METS (Metabolic Equivalents of Task) Score: < 4 METs Physical activity/exertion is very limited secondary to left hip pain. He is in a wheelchair today.Overall not very active, but denies any chest pain or shortness of breath with activity. PMH: Past Medical History: Diagnosis Date ??? Cancer 2000 patient/family unsure of type ??? Chronic kidney disease ??? ESRD (end stage renal disease) [facility] -,sat 11/2419 ??? ESRD on dialysis ??? High blood pressure ??? Pure hypercholesterolemia PSH: Past Surgical History: Procedure Laterality Date ??? INSERTION DIALYSIS CATHETER Right 04/2019 r chest tunneled cath ??? OTHER SURGERY Testicular surgery per nephew but not positive? VASCULAR PROCEDURE/SURGERY 10/20/2019 RIGHT UPPER ARM ARTERIOVENOUS FISTULA Allergies: No Known Allergies Current Medications: Outpatient Medications Marked as Taking for the 12/22/19 encounter (Hospital Encounter) with [facility] Medication Sig ??? allopurinol (ZYLOPRIM) 100 MG tablet Take 100 mg by mouth once daily ??? amLODIPine (NORVASC) 5 MG tablet Take 5 mg by mouth once daily ??? atorvastatin (LIPITOR) 20 MG tablet Take 20 mg by mouth at bedtime ??? docusate sodium (COLACE) 100 MG capsule Take 100 mg by mouth once daily as needed ??? folic acid (FOLVITE) 1 MG tablet Take 1 mg by mouth once daily ??? furosemide (LASIX) 80 MG tablet Take 80 mg by mouth 2 times daily ??? lisinopril (PRINIVIL;ZESTRIL) 5 MG tablet Take [...] same time every day after a meal. OBJECTIVE: BP 137/63 Pulse 68 Temp 97.9 ??F (36.6 ??C) Ht 1.575 m (5' 2) Wt 62 kg (136 lb 9.6 oz) SpO2 98% BMI 24.98 kg/m2 Physical Exam: Airway/Mallamapati Score: deferred due to masking/covid precautions Mouth Opening Distance: deferred due to masking/covid precautions Neck ROM: limited neck flexion and extension. TM Distance: > 3 FB Teeth: deferred due to masking/covid precautions General appearance - alert, well appearing, and in no distress and frail appearing Mental status - alert, oriented to person, place, and time Chest - clear to auscultation, no wheezes, rales or rhonchi, symmetric air entry Heart - normal rate, regular rhythm, normal S1, S2, no murmurs, rubs, clicks or gallops Pertinent Diagnostic Tests: EKG tracing 12/17/19 is in paper chart. Recent Labs Component Name 12/10/19 1049 10/13/19 1215 05/27/19191205/26/19 0803 WBC 4.0* 6.6 4.5 4.8 RBC 3.28* 3.57* 2.72* 2.93* HGB 11.2* 11.7* 8.5* 9.2* HCT 35.1* 37.3 28.2* 30.1* MCV 107.0* 104.5* 103.7* 102.7* MCHC 31.9 31.4 30.1* 30.6* PLTCOUNT 156 187 215 233 NEUTPCT 47.8 - 45.5 54.2 LYMPHPCT 30.8 - 30.8 26.4 BASOPHILPCT 0.5 - 0.7 0.8 GRANSIMMPCT - - 2.0* 3.1* NEUTABS 1.92* - 2.04 2.59 LYMPHABS 1.24 - 1.38 1.26 BASOABS 0.02 - 0.03 0.04 Recent Labs Component Name 12/22/19 0948 10/20/19 1025 10/13/19 1215 05/27/19191205/13/19 0500 SODIUM 138 135* - 138 - 137 POTASSIUM 5.7* 5.1 - 4.6 - 3.6 CHLORIDE 98 100 - 97* - 96* CO2 29 24 - 27 - 26 BUN 42* 44* - 40* - 48* CREATININE 7.70* 6.22* - 6.68* - 5.64* GLUCOSE 102 93 - 96 - 121* CALCIUM 9.4 9.6 - 8.0* - 8.3* ALT <6 - - - - 32 ALKPHOS 61 - - - - 59 AST 11 - - - - 16 TBIL 0.4 - - - - 0.3 TPROT 7.3 - 7.3 - - 6.4 EGFR 7 9 - 8 - 10 - = values in this interval not displayed. non-fasting labs done today A/P 1. Encounter for other pre-procedural examination All labs completed today were discussed with patient during clinic visit. Thoroughly discussed withpatient that all labs done today were obtained for preoperative screening purposes, and further management/recommendations and additional work-up (if necessary) will be deferred to the patient's primary care provider. All labwork done today will be sent to patient's primary care provider for continuity/coordination of care. ESRD on HD Hyperkalemia -- K+ 5.7 -- pt asymptomatic -I personally called and spoke with shotblaster Dr.David Blackman regarding hyperkalemia. recommended the followin. Veltassa 8.4 gm PO x 1 dose TODAY. Rxn e-prescribed to [facility] outpatient pharmacy per verbal order of . [pt's usual [facility] pharmacy did not have this med in-stock]. Advised patient to avoid taking other oral medications 3 hours before or after. ?? originally recommended one time dose of Kayexalate today, however, there is apparently a nationwide supplier shortage of this medication and [facility] does not have med available. Alternately, prescribed Veltassa described above. does not recommended dialysis today. 2. Make sure that you go to your normal dialysis session as scheduled for tomorrow, . 3.Continue trying to follow a low-potassium (renal) diet. 4.Please have the dialysis nurse call tomorrow when you arrive for the session. Advised pt that if any further questions about Valtessa then please call KELSEY today. Will defer further management of ESRD and surveillance/management of hyperkalemia in future to . Additionally, advised pt of the following: -continue with regular scheduled dialysis sessions -continue following with established shotblaster Discussed all above info with collab MD [place] at time of pt clinic visit. Preoperative Domain Results Recommendations BMI BMI (Calculated): 24.98 Initiate anti-inflammatory (Mediterranean) style diet in the perioperative period, unless otherwise contraindicated. Nutrition Recent Labs Component Name 12/22/19 0948 10/13/19 1215 05/26/19 0803 ALBUMIN 4.3 3.9 3.8 Anti-inflammatory (Mediterranean) style diet discussed/encouraged perioperatively. Educational resource provided. Diabetes Recent Labs Component Name 12/22/19 0948 HGBA1C 5.0 EAG 97 Continue following with established PCP or bobbin collector for ongoing care/management of DM2. Discussed with patient that overall good control of blood sugars and diabetes perioperatively certainly correlates with improve healing postoperatively. Cardiac Records reviewed Will defer to both PCP and anesthesia team to determine if any additional cardiac testing/work-up is necessary prior to upcoming scheduled surgery. Pulmonary /LISA STOPBANG Score - Sleep Apnea Total: Total LISA Risk Score: 3 -- intermediate risk STOPBANG screening tool results discussed with patient. Advised/recommended that patient f/u with PCP for Intermediate Risk & High Risk LISA screening tool results, as may consider sleep study testing in future; will defer further recommendations and/or referral to PCP. Incentive Spirometer (IS) provided and patient was instructed regarding use. Encouraged daily use of IS prior to surgery. Smoking Social History Tobacco Use Smoking Status Former Smoker ??? Last attempt to quit: 10/12/2012 ??? Years since quittin.1 Smokeless Tobacco Never Used N/A Non-smoker Infection Prevention Denies h/o MRSA CHG bathing instructions given to patient by nursing staff perprotocol. Encouraged good hygiene and handwashing preoperatively. Chronic narcotic use No chronic narcotic use. N/A VTE prophylaxis N/A Education provided re: Post-op VTE prevention. Follow specific recommendations from surgeon's office re: VTE prophylaxis. Preoperative testing CBC CMP results reviewed See notes above NPO instructions given to patient by RN per protocol. Preoperative/Day of Surgery medication instructions given to patient by RN per surgeon/anesthesia standing orders. AVS printed and given to patient. See AVS for additional instructions/information that was given topatient during this clinic visit. Abigail Rueda, CORRINE-BRAIDING MACHINE TENDER * Asya Phipps RN - 12/22/2019 9:15 AM CDT Labs from SEC visit sent to PCP and Manager Supplier via [email or web address] per instructions documented in this encounter OR Notes * OR PreOp - Asya Phipps RN - 12/22/2019 9:15 AM CDT Pre procedure covid test scheduled 72 hr before surgery will be done on 12/23. Pt will have dialysis on 12/24. Dominique at Dr Agudelo's office notified. documented in this encounter Plan of Treatment Upcoming Encounters Date Type Department Care Team (Late st Contact Info) Description 08/23/2024 1:00 PM CDT Appointment [facility] [address] [facility], [address] [place] [address] [place] [address] [facility] [address] [place] [address] [place] [address] [facility] [address] [place] [address] documented as of this encounter Procedures Procedure Name Priority Date/Time Associated Diagnosis Comments HEMOGLOBIN A1C STAT 12/22/2019 9:48 AM CDT Preop examination COMPREHENSIVE METABOLIC PANEL STAT 12/22/2019 9:48 AM CDT Preop examination documented in this encounter Results * HEMOGLOBIN A1C (12/22/2019 9:48 AM CDT) Hemoglobin A1c 5.0 4.2 - 5.6 % 12/22/2019 10:09 AM CDT [facility] Estimated Average Glucose 97 mg/dL 12/22/2019 10:09 AM CDT [facility] Blood BLOOD SPECIMEN / Unknown Venipuncture / Unknown 12/22/2019 9:48 AM CDT 12/22/2019 9:53 AM CDT Narrative [facility] - 12/22/2019 10:09 AM CDT The following cutoff levels are recommended by [place] [employer]. ?? A1c ??> 6.5% : [...] exceeds 5% in the specimen. Abigail Rueda WATCH GUARD GATE-BRAIDING MACHINE TENDER LAB - CHEM ISTRY ORDERABLES [facility] [address] [place] [address] * (ABNORMAL) COMPREHENSIVE METABOLIC PANEL (12/22/2019 9:48 AM CDT) [facility] Glucose 102 70 - 105 mg/dL 12/22/2019 10:17 AM CDT [facility] Sodium 138 136 - 145 mmol/L 12/22/2019 10:17 AM CDT [facility] Potassium 5.7(H) 3.5 - 5.1 mmol/L 12/22/2019 10:17 AM CDT [facility] Chloride 98 98 - 107 mmol/L 12/22/2019 10:17 AM CDT [facility] CO2 29 23 - 31 mmol/L 12/22/2019 10:17 AM CDT [facility] Calcium 9.4 8.4 - 10.4 mg/dL 12/22/2019 10:17 AM CDT [facility] Anion Gap 11 8 - 16 mmol/L 12/22/2019 10:17 AM CDT [facility] BUN 42(H) 8.4 - 25.7 mg/dL 12/22/2019 10:17 AM CDT [facility] Creatinine 7.70(H) 0.72 - 1.25 mg/dL 12/22/2019 10:17 AM CDT [facility] Alkaline Phosphatase 61 40 - 150 U/L 12/22/2019 10:17 AM CDT [facility] ALT <6 0 - 61 U/L 12/22/2019 10:17 AM CDT [facility] AST 11 5 - 34 U/L 12/22/2019 10:17 AM CDT [facility] Protein Total 7.3 6.4 - 8.3 gm/dL 12/22/2019 10:17 AM CDT [facility] Albumin 4.3 3.2 - 4.6 gm/dL 12/22/2019 10:17 AM CDT [facility] Bilirubin Total 0.4 0.2 - 1.2 mg/dL 12/22/2019 10:17 AM CDT [facility] eGFR by MDRD 7 mL/min/1.7 3m2 12/22/2019 10:17 AM CDT [facility] eGFR by MDRD 8 mL/min/1.7 3m2 12/22/2019 10:17 AM CDT [facility] Blood BLOOD SPECIMEN / Unknown Venipuncture / Unknown 12/22/2019 9:48 AM CDT 12/22/2019 9:53 AM CDT Abigail Rueda WATCH GUARD GATE-BRAIDING MACHINE TENDER LAB - CHEM ISTRY ORDERABLES [facility] [address] [place] [address] documented in this encounter Visit Diagnoses Diagnosis Preop examination- Primary Preoperative examination, unspecified documented in this encounter Care Teams Premium Service Representative Relationship Specialty Start Date End Date Kwame Berg MD PCP - General Internal Medicine 01/19/19 [place] [id number] [phone] Orthopedic Surgery Orthopedic Surgery 10/13/19 documented as of this encounter
--- OUTSIDE RECORDS SUMMARY | 2024-04-25 21:20 | XMS_ITS | Encounter Summary ---
Author Organization [facility] Address [address] [place] [address] Care Team Providers Care Radio Station Audio Engineer Name Role Phone Kwame Berg MD Primary Care Provider [phone] Dylon Agudelo MD Unavailable [phone] Encounter Details Date Type Department Care Team (Latest Contact Info) Description 11/01/2019 Travel Social History Tobacco Use Types Packs/Day [...] have Coronavirus / COVID-19? No / Unsure 11/01/2019 12:00 PM CDT documented as of this encounter Plan of Treatment Upcoming Encounters Date Type Department Care Team (Late st Contact Info) Description 08/23/2024 1:00 PM CDT Appointment [facility] Vascular Services [address] [place] [address] [place] [address] [facility] [place] [address] [place] [address] [place] [address] [facility] [place] [address] [place] [address] documented as of this encounter Visit Diagnoses Not on filedocumented in this encounter Care Teams Radio Station Audio Engineer Relationship Specialty Start Date End Date Kwame Berg MD PCP - General Internal Medicine 01/19/19 [place] [id number] [address] Orthopedic Surgery Orthopedic Surgery 10/13/19 documented as of this encounter
--- OUTSIDE RECORDS SUMMARY | 2024-04-25 21:20 | XMS_ITS | Encounter Summary ---
Author Organization [facility] Address [address] [place] [address] Care Team Providers Care Patient Financial Rep Name Role Phone Kwame Berg MD Primary Care Provider [phone] Dylon Agudelo MD Unavailable [phone] Encounter Details Date Type Department Care Team (Late Contact Info) Description 10/28/2019 Orders Only [facility] - Surgery [address], [address] [place] [address] [place] [address] [facility] [address] [place] [address] ESRD (end stage renal disease) ([facility]) Social History Tobacco Use Types Packs/Day Years [...] have Coronavirus / COVID-19? No / Unsure 10/15/2019 10:00 AM CDT documented as of this encounter Plan of Treatment Upcoming Encounters Date Type Department Care Team (Late Contact Info) Description 08/23/2024 1:00 PM CDT Appointment [facility] [address], [address] [place] [address] [place] [address] [facility] [address] [place] [address] [place] [address] [facility] [address] [place] [address] documented as of this encounter Visit Diagnoses Diagnosis ESRD (end stage renal disease) (HCC)- Primary End stage renal disease documented in this encounter Care Teams Patient Financial Rep Relationship Specialty Start Date End Date Kwame Berg MD PCP - General Internal Medicine 01/19/19 [place] [id number] [facility] [address] [place] [address] Orthopedic Surgery Orthopedic Surgery 10/13/19 documented as of this encounter
--- OUTSIDE RECORDS SUMMARY | 2024-04-25 21:20 | XMS_ITS | Encounter Summary ---
Author Organization [facility] Address [address] [place] [address] Care Team Providers Care Global Climate Change Researcher Name Role Phone Kwame Berg MD Primary Care Provider [phone] Dylon Agudelo MD Unavailable [phone] Encounter Details Date Type Department Care Team (Latest Contact Info) Description 10/26/2019 Travel Social History Tobacco Use Types Packs/Day [...] Info) Description 08/23/2024 1:00 PM CDT Appointment [facility] Vascular Services [address], [address] [place] [address] [place] [address] [facility] [address] [place] [address] [place] [address] [facility] [address] [place] [address] documented as of this encounter Visit Diagnoses Not on filedocumented in this encounter Care Teams Global Climate Change Researcher Relationship Specialty Start Date End Date Kwame Berg MD PCP - General Internal Medicine 01/19/19 [place] [address] [address] Orthopedic Surgery Orthopedic Surgery 10/13/19 documented as of this encounter
--- OUTSIDE RECORDS SUMMARY | 2024-04-25 21:20 | XMS_ITS | Encounter Summary ---
Author Organization [facility] Address [address] [facility] [place] [address] Care Team Providers Care Beam Press Operator Name Role Phone Kwame Berg MD Primary Care Provider [phone] Dylon Agudelo MD Unavailable [phone] Encounter Details Date Type Department Care Team (Latest Contact Info) Description 12/24/2019 1:35 PM CDT - 12/24/2019 11:59 PM CDT [facility] [address] [facility] [address] [place] [address] [place] [address] [facility] [address] [place] [address] Discharge Disposition: Home or Self [...] have Coronavirus / COVID-19? No / Unsure 12/24/2019 1:33 PM CDT documented as of this encounter Medications [...] 08/23/2024 1:00 PM CDT Appointment [facility] Health Vascular Services [address] [facility], [address] [place] [address] [place] [address] [facility] [address] [place] [id number] [place] [address] [facility] [address] [place] [address] documented as of this encounter Procedures Procedure Name Priority Date/Time Associated Diagnosis Comments SARS-COV-2 (COVID-19) IN HOUSE Routine 12/24/2019 1:35 PM CDT Preop examination documented in this encounter Results * SARS-COV-2 (COVID-19) PRE-SURGICAL/PROCEDURE (12/24/2019 1:35 PM CDT) COVID-19 PCR Not detected Not detected, Invalid 12/25/2019 10:48 AM CDT [facility] Microbiology SPECIMEN FROM NASOPHARYNGEAL STRUCTURE / Unknown Collection / Unknown 12/24/2019 1:35 PM CDT 12/24/2019 2:36 PM CDT Narrative [facility] - 12/25/2019 10:48 AM CDT This nucleic acid amplification assay performance was validated by [facility]. This test has been authorized by the Food and Drug administration (FDA)under an Emergency??Use Authorization (EUA). This test has been validated [...] Dylon Agudelo MD LAB - MICROBIOLOGY O RDERAMAXINE [facility] [address] [place], [place] [address], [facility] [phone] documented in this encounter Visit Diagnoses Diagnosis Preop examination Preoperative examination, unspecified documented in this encounter Care Teams Beam Press Operator Relationship Specialty Start Date End Date Kwame Berg MD PCP - General Internal Medicine 01/19/19 [place] [address] [id number] Orthopedic Surgery Orthopedic Surgery 10/13/19 documented as of this encounter
--- OUTSIDE RECORDS SUMMARY | 2024-04-25 21:20 | XMS_ITS | Encounter Summary ---
Author Organization [facility] Address [address] [place] [address] Care Team Providers Care Cash Processor Name Role Phone Kwame Berg MD Primary Care Provider Dylon Agudelo MD Unavailable [phone] Reason for Visit * Reason Onset Date Comments Late Cancel 11/05/2019 Encounter Details Date Type Department Care Team (Late st Contact Info) Description 11/05/2019 Telephone [facility] Orthopedics [address] [address] [place] [address] [address] Late Cancel Social History Tobacco Use Types Packs/Day Years [...] have Coronavirus / COVID-19? No / Unsure 11/04/2019 12:05 PM CDT documented as of this encounter Miscellaneous Notes * Telephone Encounter - Lissette Dolan MA - 11/05/2019 9:55 AM CDT noted * Telephone Encounter - Eladia Miranda - 11/05/2019 9:19 AM CDT Jules Stephen called and cancelled appt Appointment Date: 11-05-2019 Appointment Time: 10:00 am If rescheduled: 11/19/2019 Provider: Patricio Hernandez documented in this encounter Plan of Treatment Upcoming Encounters Date Type Department Care Team (Late st Contact Info) Description 08/23/2024 1:00 PM CDT Appointment [facility] Vascular Services [address] [facility] [facility], [address] [place] [address] [place] [address] [facility] [address] [place] [address] [place] [address] [facility] [address] [place] [address] documented as of this encounter Visit Diagnoses Not on filedocumented in this encounter Care Teams Cash Processor Relationship Specialty Start Date End Date Kwame Berg MD PCP - General Internal Medicine 01/19/19 [place] [address] [facility] [address] [place] [address] Orthopedic Surgery Orthopedic Surgery 10/13/19 documented as of this encounter
--- OUTSIDE RECORDS SUMMARY | 2024-04-25 21:20 | XMS_ITS | Encounter Summary ---
Author Organization [facility] Address [address] [place] [address] Care Team Providers Care Landscape Architecture Teacher Name Role Phone Kwame Berg MD Primary Care Provider [phone] Dylon Agudelo MD Unavailable [phone] Reason for Visit * Auth/Cert Specialty Diagnoses / Procedures Referred By Vivienne t Referred To Contact Procedures ARTHROPLASTY TOTAL HIP Referral ID Status Reason Start Date Expiration Date Visits Re quested Visits Authorized [id number] 1 1 Encounter Details Date Type Department Care Team (Late st Contact Info) Description 01/12/2020 10:00 AM CDT - 01/12/2020 12:30 PM CDT Surgery [facility] - Perioperative Surgery [address] [place] [address] [place] [id number] [address] [place] [address] LEFT POSTERIOR ARTHROPLASTY TOTAL HIP Surgery Details Date/Time Status Location OR Service Patient Class Case Class Case Type Trauma Case? 01/12/2020 10:00 AM Posted [facility] MAIN OR OR 15 Orthopedics Quality Assurance Assessor Admit Surgical Elective > 5 days Panel 1 Procedure LRB Anes Op Region Wound Class Comments LEFT POSTERIOR ARTHROPLASTY TOTAL HIP Spinal Hi p Clean Surgeon Surgeon Role Service Panel Dylon Agudelo MD Primary Orthopedics 1 Special Needs BIOMET (LUZ) NOTIFIED-NB documented in this encounter Social History Tobacco [...] Sign Reading Time Taken Comments Blood Pressure 136/56 01/12/2020 12:30 PM CDT Pulse 91 01/12/2020 12:30 PM CDT Temperature 36.1 ??C (97 ??F) 01/12/2020 12:27 PM CDT Respiratory Rate 17 01/12/2020 12:30 PM CDT Oxygen Saturation 100% 01/12/2020 12:27 PM CDT Inhaled Oxygen Concentration - - Weight 62.8 kg (138 lb 6.4 oz) 01/12/2020 8:53 A M CDT Height 157.5 cm (5' 2) 01/12/2020 8:53 AM CDT Body Mass Index 25.31 01/12/2020 8:53 AM CDT documented in this encounter Functional [...] as of this encounter Discharge Summaries * Maritza Scott RN - 01/20/2020 5:05 PM CDT Physician Discharge Summary Patient Name: Ferdinand Rasmussen Date of : 1945 Admit date: 01/12/2020 Discharge date: 01/20/2020 Admitting Physician: Dylon Agudelo MD Attending Physician: Dylon Agudelo MD Discharge Physician: Dylon Agudelo MD Admission Diagnosis: Left end-stage hip osteoarthritis Past Medical History Past Medical History: Diagnosis Date ??? Cancer 2000 pt unsure of type of cancer ??? Chronic kidney disease ??? ESRD (end stage renal disease) Evelyn mcmahon -t,th,sat 11/2419 ??? ESRD on dialysis ??? High blood pressure ??? Pure hypercholesterolemia ??? Stroke per pt Discharge Diagnoses Active Problems: Primary osteoarthritis of left hip Resolved Problems: * No resolved hospital problems. * Diagnostic Studies See hospital course Treatments See hospital course Procedures See hospital course Consults Dr wyatt berg Hospital Course Good Progress with PT. Pain Controlled w/ oral medications. Incisional area c/d/i Condition at discharge: good Disposition: Rehabilitation facility Code Status At Discharge Full Code Patient Instructions Discharge Procedure Orders PT Eval and Treat Referral Standing Status: Future Referral Priority: Routine Referral Type: Independent Medical Evaluation Referral Reason: Specialty Services Required Number of Visits Requested: 1 OT Eval and Treat Referral Standing Status: Future Referral Priority: Routine Referral Type: Independent Medical Evaluation Referral Reason: Specialty Services Required Number of Visits Requested: 1 Why you were hospitalized Order Specific Question Answer Comments Your discharge diagnosis is: DJD (degenerative joint disease) [] No special diet needed Resume normal diet as tolerated. Encouraged protein intake, if not contraindicated. Diet instructions May substitute facility diet equivalent Diet for Special Occasions May disregard therapeutic diet on special occasions per facility policy and pants busheler. Activity as tolerated Rest today, and increase activity level tomorrow as tolerated. Incision care Leave dressing in place. The dressing can be pulled back to inspect the incision if needed, but this is not necessary unless concerns exist. You may shower with the dressing on, as it is waterproof. Change the dressing one week from the date of surgery and apply a gauze dressing. The dressing will be discontinued when the lyric are removed. D/c lyric on 01/26/2020. Hip precautions Posterior hip precautions. Weight bearing as tolerated Slowly increase the amount of weight put on left leg as tolerated. Assistive devices Please use a walker. Additional orthopedic instructions Physical Therapy Occupation therapy Oxygen Saturation PRN Distress Oxygen Saturation - Check PRN for respiratory distress or change in patients condition per pants busheler. Special instructions Apply ice/cold pack to incision at least 20min every hour, when awake Notify Physician Order Specific Question Answer Comments SBP greater than 180 SBP less than 90 DBP greater than 100 DBP less than 50 Pulse greater than 110 Pulse less than 50 Resp greater than 28 Resp less than 12 Temp greater than 100.5 F For a blood sugar reading higher than 350 For a blood sugar reading less than 60 Notify Physician if Patient's weight increases or decreases by 3 lbs. in one day or 3 lbs. in one week. IF HYPOGLYCEMIC, UNRESPONSIVE AND UNABLE TO TAKE BY MOUTH ADMINISTER GLUCAGON 1 mg IM x 1 Recheck blood glucose and assess clinical status in 15 minutes and repeat Glucagon as needed. Must notify physician immediately after use. IF HYPOGLYCEMIC (LESS THAN 70) AND PATIENT IS ABLE TO SWALLOW ADMINISTER DEXTROSE 40% ORAL GEL PO x 1 Recheck blood sugar in 15 minutes, may repeat PRN if blood sugar remains less than 70. Must notify physician immediately after use. Influenza Vaccination May have annual Influenza vaccine unless contraindicated. Generic equivalent Drugs Generic equivalent drugs may be substituted by pharmacy unless otherwise indicated. TB Skin testing May have 2 step TB Skin test unless contraindicated or history of positive TB skin test. Admit to Inpatient Rehab Ferdinand is to be admitted to an Inpatient Rehabilitation Facility. Physician Certification of Need I certify that post hospital Inpatient Rehabilitation services are required to be given on an inpatient basis because of the patient's need for rehabilitation on a continuous basis for the condition(s) for which Ferdinand was receiving in- hospital services prior to transfer to an inpatient rehabilitation facility. The orders on this document are transfer orders to be active at the new facility after discharge from the hospital. The orders replace any other lists of orders or medications. Electronically signed by Dylon Agudelo MD 01/20/2020 2:02 PM Follow up with provider Order Specific Question Answer Comments Follow Up Instructions: Follow up in office in 3 weeks. [phone] Contact Information for Follow-Up Providers Dylon Agudelo MD Specialty: Orthopedic Surgery, Radiology Relationship: Orthopedic Surgery [address] [place] [phone] Follow up in office in 3 weeks. [phone] Follow Up Instructions: Follow up in office in 3 weeks. [phone] Discharge time: less than 30 minutes. Current Discharge Medication List START taking these medications Instructions Authorizing Provider apixaban 2.5 MG tablet Commonly known as: ELIQUIS Quantity Dispensed: 60 tablet Take 1 tablet by mouth 2 times daily Kwame Berg MD dilTIAZem coated beads 24hr 120 MG capsule Commonly known as: CARDIZEM CD Quantity Dispensed: 30 capsule Take 1 capsule by mouth once daily Do not crush or chew. Kwame Berg MD epoetin ashly-EPBX 4000 UNIT/ML injection Commonly known as: RETACRIT Inject 4,000 Units subcutaneously every 7 days Kwame Berg MD HYDROcodone-acetaminophen 10-325 MG tablet Commonly known as: NORCO Quantity Dispensed: 28 tablet Take 0.5-1 tablets by mouth every 6 hours as needed Dylon Agudelo MD CONTINUE taking these medications which have NOT CHANGED Instructions Authorizing Provider allopurinol 100 MG tablet Commonly known as: ZYLOPRIM Take 100 mg by mouth once daily atorvastatin 20 MG tablet Commonly known as: LIPITOR Take 20 mg by mouth at bedtime docusate sodium 100 MG capsule Commonly known as: COLACE Take 100 mg by mouth once daily as needed furosemide 80 MG tablet Commonly known as: LASIX Take 80 mg by mouth 2 times daily lisinopril 5 MG tablet Commonly known as: PRINIVIL;ZESTRIL Take 5 mg by mouth once daily polyethylene glycol 3350 17 g packet Commonly known as: MIRALAX Take 17 g by mouth once daily as needed rOPINIRole 0.5 MG tablet Commonly known as: REQUIP Take 0.5 mg by mouth Three times a week sevelamer carbonate 800 MG Commonly known as: RENVELA Take 800 mg by mouth 3 times daily with meals sodium bicarbonate 325 MG tablet Take 325 mg by mouth once daily tamsulosin 0.4 MG capsule Commonly known as: FLOMAX Take 0.4 mg by mouth at bedtime At the same time every day after a meal. STOP taking these medications amLODIPine 5 MG tablet Commonly known as: NORVASC folic acid 1 MG tablet Commonly known as: FOLVITE traMADol 50 MG tablet Commonly known as: ULTRAM CC: none documented in this encounter Discharge Instructions * Discharge Instructions* Neli Das RN - 01/19/2020 1:10 PM CDT [facility]-[phone] documented in this encounter Medications at Time [...] UNIT/ML injectionIndications :ESRD (end stage renal disease) ([facility]) Inject 4,000 Units subcutaneously every [...] as of this encounter Progress Notes * Isabel Payan RN - 01/20/2020 2:46 PM CDT Problem: Pain/Discomfort Goal: Patient exhibits reduced pain/discomfort as evidenced by pain scores Outcome: Goal Met Problem: Incision Care Goal: Incision remains intact with edges well approximated Outcome: Goal Met Goal: Incision is free of infection. Outcome: Goal Met Problem: Fall Risk Goal: Fall risk and fall related injury risk are minimized Outcome: Goal Met Problem: Balance Goal: LTG - Patient will demonstrate Intervention to enhance balance for safe completion of daily activities Outcome: Goal Met Problem: Mobility Goal: LTG - Patient will ambulate household distance Description: Mod I with 2ww Outcome: Goal Met Goal: STG - Patient will ascend and descend four to six stairs Description: Mod I with rail Outcome: Goal Met Goal: STG - Patient will tolerate ____ repetitions of exercises. Description: -15 Outcome: Goal Met Goal: STG - Patient will ambulate Outcome: Goal Met Goal: STG - Patient will tolerate ____ repetitions of exercises. Outcome: Goal Met Problem: Transfers Goal: STG - Patient to transfer to and from sit to supine Description: Mod I with bed flat Outcome: Goal Met Goal: STG - Patient will transfer sit to and from stand Description: Mod I Outcome: Goal Met Goal: STG - Patient to transfer to and from sit to supine Outcome: Goal Met Goal: STG - Patient will transfer sit to and from stand Outcome: Goal Met Problem: Hemodynamic Status/Cardiac Output Goal: Patient has stable vital signs and fluid balance Outcome: Goal Met Problem: Fluid and Electrolyte Imbalance Goal: Fluid and electrolyte balance are achieved/maintained Outcome: Goal Met Problem: Infection Goal: Signs and symptoms of infections are decreased or avoided Outcome: Goal Met Problem: General Goal: STG-Patient will Description: Perform toileting in bathroom with FWW and SBA. Outcome: Goal Met Goal: STG-Patient will Description: Perform grooming standing in place for 5 min with FWW and min A. Outcome: Goal Met Goal: STG-Patient will Description: Require no VC's for command following, attention, processing or sequencing throughout session. Outcome: Goal Met Problem: Nutrient: Increased nutrient needs (specify) Description: related to:: renal dysfunction Goal: Total intake will meet estimated nutrient needs Description: Odlucas's Nutrition Goal: Total intake will meet estimated nutrient needs Nutrition GoalTimeframe: Throughout stay Outcome: Goal Met * Sabina Crandall, PT - 01/20/2020 2:43 PM CDT Physical Therapy Treatment Summary Chart review completed. Nursing consented for PT. Explained purpose of PT and patient consented to participate in therapy. PPE worn by staff: eye protection;gloves;mask - surgical PPE worn by patient: mask - surgical SUBJECTIVE: Pt initially declined as he was finishing eating, but then agreeable. Pt reports the chair is uncomfortable. Patient's Goal for the Day: walk Pain Assessment: Pain Rating Score #: 0 Pain Location : Hip Pain Orientation: Left OBJECTIVE: Orientation Level: Disoriented to Time;Oriented to Person;Oriented to Situation;Disoriented to Place Precautions: Bed Mobility: Supine to Sit: Minimal Assistance;Stand By Assist Sit to Supine: Minimal Assistance Transfers: Sit to Stand: Minimal Assistance Stand to Sit: Stand By Assist Mobility: Distance Ambulated: 120 FEET Ambulation: Assistive Device: Gait Belt;Walker-2 Wheeled Ambulation: Level of Assistance: Minimum Assistance;Requires Verbal Cues for Safety;Requires Physical Cues for Safety;Requires Verbal Cues for Technique;Requires Physical Cues for Technique Weight Bearing Status-LLE: Weight Bearing as Tolerated Weight Bearing Status-RLE: Weight Bearing as Tolerated Balance: Good w/ B UE support Activity Tolerance and O2 Requirements: Exercise: 10 reps LLE CARLOZ exercises ASSESSMENT: Pt w/ small steps, increased trunk flexion, delayed processing. Call light and phone in reach with alarm activated. All lines, monitors, IV's, equipment in place and intact pre and post visit. RN , notified of patient's performance/location end of session. Pteducated in PT plan of care, fall precautions, and benefits of OOB activity. Please refer to the Filed Flowsheet for further details. Refer to Plan of Care for PT goals. RECOMMENDATIONS/PLAN: Pt will tolerate and benefit from 3 hour/day intense inpatient multidisciplinary therapies to increase independence and functional mobility. AM-PAC Basic mobility score for this patient is CMS 0-100% Score (Calculated): 50.57% degree of impairment with higher scores indicating patient may benefit from further inpatient services. If this is the last Physical Therapy visit, this note serves as the discharge summary. Sabina Crandall, PT [phone] * Olivia Palacio RN - 01/20/2020 2:37 PM CDT [facility] Rehab has accepted this patient and he is in agreement be transferred to acute rehab on the [facility] to room 204. Accept[address] physician [address] Dr. Alexandre. May fax discharge ORDERS and a copy of the MAR to [phone]. May call REPORT to [phone] Thank you for the referral! Olivia Palacio RN, BSN Clinical Liaison [facility] * Laquita Llanos RD/LALO - 01/20/2020 2:23 PM CDT Nutrition Re-Assessment Comments: Pt follow up. Noted variable intake at meals since last assessment -- current % intake average inaccurate d/t 2 0% intake meals documented at night (not regular meal times). Noted 50-75% recent meals over the last 2 days. Nepro supplements ordered with all meals. Nepro (Renal Supplement)provides 425 calories ,19.1 grams protein per 8 oz serving. Will continue to offer supplements with meals. Recommend encouragement and assistance at meals as indicated. Will continue to monitor. Assessment: Med/Surg History and Clinical Diagnoses: s/p hip arthroplasty PMH: ESRD on HD Diet order accuracy Current diet order: Renal Standard Current supplement order: Nepro TID Nutrition recommendation: agree with current nutrition order Food Allergies: No known food allergies P.O.Intake for the past 48 hrs:% Meal Taken Av.5 % Min: 0 % Max: 75 % GI Concerns: None Chewing/Swallowing: Other (Comment)(chopped up food per RN) Pain affecting intake: No Admission weight: Weight: 138 lb 6.4 oz (62.8 kg) (01/12/20852) Filed Wts: 01/12/20852 Weight: 138 lb 6.4 oz (62.8 kg) WT Comments: reviewed Laboratory values reviewed. Recent Labs Component Name 01/20/20 0445 01/19/20 0350 01/18/20 0307 SODIUM 136 135* 140 POTASSIUM 4.3 4.2 4.0 CHLORIDE 98 94* 101 CO2 26 32* 28 BUN 57* 33* 58* CREATININE 6.54* 4.60* 7.47* GLUCOSE 125* 110* 121* CALCIUM 8.8 9.0 8.7 EGFR 8 13 7 EGFRAFR 10 15 9 Medications noted. Skin: Exceptions to WDL per nursing assess Estimated Energy Needs: KCAL: 1568 kcal(25 kcal/kg BW) Protein (g): 81 g(1.3 g/kg BW) Fluid (ml): 1 ml/kcal Recommended Access Route: PO Education needed: Supplements Education Provided: Yes Nutrition Care Process (1) Nutrition Diagnostic Statement: Increased nutrient needs related to:: renal dysfunction as evidenced by:: estimated protein needs .. Nutrition Intervention: Meals and snacks:;Medical Food Supplements: Recommendations: Continue with renal diet order Nepro supplements with all meals Assistance and encouragement at meals Monitoring: PO intake and tolerance Supplement intake and tolerance Weight and labs Skin assessment and bowel function Evaluation: Diagnostic Statement #1 Goals: Nutrition Goal: Total intake will meet estimated nutrient needs Nutrition Goal Timeframe: Throughout stay Nutrition Goal Progress: Continue with current goal * Laquita Llanos RD/LDN - 01/20/2020 2:21 PM CDT Problem: Nutrient: Increased nutrient needs (specify) Description: related to:: renal dysfunction Goal: Total intake will meet estimated nutrient needs Description: Ferdinand's Nutrition Goal: Total intake will meet estimated nutrient needs Nutrition GoalTimeframe: Throughout stay Outcome: Ongoing P.O.Intake for the past 48 hrs: % Meal Taken Av.5 % Min: 0 % Max: 75 % P.O. Intake for supplement for the past 48 hours: Supplement Percentage Taken Av % Min: 0 % Max: 0 % 2 0% intake meals documented overnight 50-75% last 3 meals per documentation * Dolores Alberts RN - 01/20/2020 2:15 PM CDT Ortho POD#8 Awake, alert Afebrile Incisional area- silver dressing intact Pain controlled VTE Prophylaxis: eliquis Slow progress w/ PT Pt has been accepted to [facility] Rehab OK to discharge, F/U in office in 3 weeks * Mana Oliva MD - 01/20/2020 1:34 PM CDT Cardiology Progress Note Admit Date: 01/12/2020 Hospital Day: 8 Follow up for: A-fib Symptoms No chest pain or shortness of breath. Tele: SR Vital signs Vitals: 01/20/20 1040 01/20/20 1100 01/20/20 1120 01/20/20 1140 BP: 108/59 123/69 129/71 132/57 Pulse: 87 81 99 79 Resp: Temp: SpO2: Weight: Height: Intake/Output Summary (Last 24 hours) at 01/20/2020 1334 Last data filed at 01/20/2020 0730 Gross per 24 hour Intake 220 ml Output 560 ml Net -340 ml Exam 01/20/2020 Lungs: Clear to auscultation and percussion Heart: S1 and S2 normal. No murmur. No gallop or rub Abdomen: Soft, nontender, bowel sounds active. Extremities: No edema SCHEDULED MEDICATIONS: allopurinol (ZYLOPRIM) tablet 100 mg, Oral, QDAY apixaban (ELIQUIS) tablet 2.5 mg, Oral, BID atorvastatin (LIPITOR) tablet 20 mg, Oral, AT BEDTIME dilTIAZem coated beads 24hr (CARDIZEM CD) capsule 120 mg, Oral, QDAY docusate sodium (COLACE) capsule 100 mg, Oral, BID epoetin ashly-EPBX (RETACRIT) injection 4,000 Units, Subcutaneous, q7 days famotidine (PEPCID) tablet 20 mg, Oral, QDAY furosemide (LASIX) tablet 80 mg, Oral, BID lisinopril (PRINIVIL;ZESTRIL) tablet 5 mg, Oral, QDAY polyethylene glycol 3350 (MIRALAX) packet 17 g, Oral, QDAY rOPINIRole (REQUIP) tablet 0.5 mg, Oral, AT BEDTIME sevelamer carbonate (RENVELA) tablet 800 mg, Oral, TID WC sodium bicarbonate tablet 325 mg, Oral, QDAY ?? tamsulosin (FLOMAX) capsule 0.4 mg, Oral, AT BEDTIME ?? CONTINUOUS MEDICATIONS: PRN MEDICATIONS: Or Or acetaminophen (TYLENOL) tablet 650 mg, Oral, q6h PRN bisacodyl (DULCOLAX) suppository 10 mg, Rectal, QDAY PRN bisacodyl EC (DULCOLAX) tablet 5 mg, Oral, QDAY PRN calcium carbonate (TUMS) chew tablet 2 tablet, Oral, q4h PRN diphenhydrAMINE (BENADRYL) capsule 25 mg, Oral, q6h PRN HYDROcodone-acetaminophen (NORCO) 10-325 MG tablet 1 tablet, Oral, q4h PRN HYDROcodone-acetaminophen (NORCO) 5-325 MG tablet 1 tablet, Oral, q4h PRN magnesium hydroxide (MILK OF MAGNESIA) suspension 30 mL, Oral, QDAY PRN naloxone (NARCAN) injection 0.4 mg, Intravenous, PRN ondansetron (disintegrating) (ZOFRAN ODT) tablet 4 mg, Oral, q6h PRN throat lozenge 1 lozenge, Oral, q2h PRN ?? zolpidem (AMBIEN) tablet 5 mg, Oral, AT BEDTIME PRN Labs Recent Labs Component Name 01/20/20 0445 01/19/20 0350 01/18/20 0307 SODIUM 136 135* 140 POTASSIUM 4.3 4.2 4.0 CHLORIDE 98 94* 101 CO2 26 32* 28 BUN 57* 33* 58* CREATININE 6.54* 4.60* 7.47* GLUCOSE 125* 110* 121* Recent Labs Component Name 01/12/20 2308 12/10/19 1049 10/13/19 1215 05/27/19 1913 WBC - 4.0* 6.6 4.5 HGB 10.0* 11.2* 11.7* 8.5* HCT 32.1* 35.1* 37.3 28.2* PLTCOUNT - 156 187 215 Cardiographics Echo 01/17/20: ??? Left ventricle is normal in size. ??? Normal global systolic left ventricular function. ??? EF 60 %. ??? Left ventricle wall thickness is at the upper limits of normal. ??? There are no regional wall motion abnormalities. ??? Doppler parameters are consistent with abnormal left ventricular relaxation (Grade 1 diastolic dysfunction). ? Assessment: ?? Paroxysmal atrial fibrillation, rate controlled. CHADS-VASc score is 4. ?? S/P total left hip arthroplasty. ?? Dementia. Denies falling ?? ESRD on HD ?? DM ?? HTN ?? Plan: ?? No further work up. ?? Okay for discharge from cardiac perspective. ?? Continue Eliquis 2.5 mg po bid. Mana Oliva MD, FACC 01/20/2020 * Neli Das RN - 01/20/2020 12:42 PM CDT Case Management Progress Note Anticipated level of care at discharge: Home Health Care, Acute Rehab Facility Discharge Plan: Patient is S/P left total hip arthroplasty. Plan is to discharge to [facility] rehab. Spoke with Olivia from rehab who is trying to obtain Medicaid auth. Patient should be able to discharge to rehab once auth obtained. Patient will need to transport by ambulance if family unable to provide transportation. Spoke with patient's nurse Isabel who is aware of the above. Basic Needs Assessment (BNA) Score: 10 Complex Needs Assessment (ACADEMIC COACH) Score: 5 Social Support Domain Score: 0 Medical Status and Health Trajectory Domain Score: 5 Medical Home and Access to Services Domain Score: 0 Anticipated Discharge Date: Anticipated Discharge Date: 01/20/20 Transportation at Discharge: Ambulance Transportation to MD:Medicaid Provider Equipment at Home: Equipment At Home: Cane-Straight;Chair-Shower;Walker-2 Wheeled Additional DME needed: None Pharmacy benefit: Yes Name: Neli Das RN * Dolores Alberts RN - 01/20/2020 11:30 AM CDT ORTHO 01/20/2020 Pt currently off floor for dialysis- will follow at a later time Rehab consult * Naveen Blackman MD - 01/20/2020 11:02 AM CDT Renal Progress Note Ferdinand Rasmussen [id number] Symptoms Patient denies fever, chills, chest pain, cough, sob, N/V, abdominal pain Vitals: 01/20/20 0920 01/20/20 0940 01/20/20 1000 01/20/20 1020 BP: 135/55 92/54 140/58 101/55 Pulse: 73 86 85 95 Resp: 16 16 16 16 Temp: SpO2: Weight: Height: Temp (30hrs) Max:99.4 ??F (37.4 ??C) Intake/Output Summary (Last 24 hours) at 01/20/2020 1102 Last data filed at 01/20/2020 0730 Gross per 24 hour Intake 220 ml Output 560 ml Net -340 ml Filed Wts: 01/12/20 0853 Weight: 62.8 kg (138 lb 6.4 oz) . MEDICATIONS FOR CURRENT ENCOUNTER: SCHEDULED MEDICATIONS: allopurinol (ZYLOPRIM) tablet 100 mg, Oral, QDAY apixaban (ELIQUIS) tablet 2.5 mg, Oral, BID atorvastatin (LIPITOR) tablet 20 mg, Oral, AT BEDTIME dilTIAZem coated beads 24hr (CARDIZEM CD) capsule 120 mg, Oral, QDAY docusate sodium (COLACE) capsule 100 mg, Oral, BID epoetin ashly-EPBX (RETACRIT) injection 4,000 Units, Subcutaneous, q7 days famotidine (PEPCID) tablet 20 mg, Oral, QDAY furosemide (LASIX) tablet 80 mg, Oral, BID lisinopril (PRINIVIL;ZESTRIL) tablet 5 mg, Oral, QDAY polyethylene glycol 3350 (MIRALAX) packet 17 g, Oral, QDAY rOPINIRole (REQUIP) tablet 0.5 mg, Oral, AT BEDTIME sevelamer carbonate (RENVELA) tablet 800 mg, Oral, TID WC sodium bicarbonate tablet 325 mg, Oral, QDAY ?? tamsulosin (FLOMAX) capsule 0.4 mg, Oral, AT BEDTIME ?? CONTINUOUS MEDICATIONS: PRN MEDICATIONS: Or Or acetaminophen (TYLENOL) tablet 650 mg, Oral, q6h PRN bisacodyl (DULCOLAX) suppository 10 mg, Rectal, QDAY PRN bisacodyl EC (DULCOLAX) tablet 5 mg, Oral, QDAY PRN calcium carbonate (TUMS) chew tablet 2 tablet, Oral, q4h PRN diphenhydrAMINE (BENADRYL) capsule 25 mg, Oral, q6h PRN HYDROcodone-acetaminophen (NORCO) 10-325 MG tablet 1 tablet, Oral, q4h PRN HYDROcodone-acetaminophen (NORCO) 5-325 MG tablet 1 tablet, Oral, q4h PRN magnesium hydroxide (MILK OF MAGNESIA) suspension 30 mL, Oral, QDAY PRN naloxone (NARCAN) injection 0.4 mg, Intravenous, PRN ondansetron (disintegrating) (ZOFRAN ODT) tablet 4 mg, Oral, q6h PRN throat lozenge 1 lozenge, Oral, q2h PRN ?? zolpidem (AMBIEN) tablet 5 mg, Oral, AT BEDTIME PRN Exam General appearance: alert, cooperative, no distress Neck: supple Lungs: breath sounds normal and symmetric; no rales or wheezes Heart: regular rhythm, normal S1 and S2, without murmurs, gallops or rubs Abdomen: soft without mass, non-tender, with normal bowel sounds Extremities: no clubbing, cyanosis or edema ?? Results Recent Labs Component Name 01/20/20 0445 01/19/20 0350 01/18/20 0307 SODIUM 136 135* 140 POTASSIUM 4.3 4.2 4.0 CHLORIDE 98 94* 101 CO2 26 32* 28 BUN 57* 33* 58* CREATININE 6.54* 4.60* 7.47* GLUCOSE 125* 110* 121* CALCIUM 8.8 9.0 8.7 ALBUMIN 3.4 3.5 3.2 PHOS 3.4 2.8 3.9 No results for input(s): MAGMGDL in the last 95802 hours. Recent Labs Component Name 01/12/20 2308 12/10/19 1049 10/13/19 1215 05/27/19 1913 WBC - 4.0* 6.6 4.5 HGB 10.0* 11.2* 11.7* 8.5* HCT 32.1* 35.1* 37.3 28.2* PLTCOUNT - 156 187 215 No results for input(s): COLORUA, CHARACTERUA, SPECGRAVUA, PHUA, PROTEINUA, BLOODUA, LEUKOCYTEUA, NITRITEUA, GLUCOSEUA, KETONEUA, BILIRUBINUA, UROBILINUA, WBCUA, RBCUA, EPITHUA, MUCUSUA, CASTUA, CRYSTALUA, BACTERIAUA, YEASTUA, TRICHUA in the last 91654 hours. .chest X-ray ..us No results for input(s): PT in the last 31652 hours. No results for input(s): INR in the last 09690 hours. No results for input(s): BNP in the last 72208 hours. Recent Labs Component Name 01/12/20 2308 12/10/19 1049 WBC - 4.0* RBC - 3.28* HGB 10.0* 11.2* HCT 32.1* 35.1* MCV - 107.0* MCH - 34.1* MCHC - 31.9 PLTCOUNT - 156 Assessment and Plan 1. ESRD/severe chronic kidney disease, on dialysis now. 2. Hypertension, BP stable with dialysis 3. Chronic recurrent volume overload due to ESRD, compensated well on dialysis 4. Hyperkalemia due to ESRD, K stable 5. Anemia, probably related to his CKD, R/O loss causing anemia 6. S/p left hip arthroplasty Naveen Blackman Office [phone] * Abigail Thomas RN - 01/20/2020 10:29 AM CDT Problem: Hemodynamic Status/Cardiac Output Goal: Patient has stable vital signs and fluid balance 01/20/2020 1029 by Abigail Thomas RN Outcome: Ongoing 01/20/2020 1013 by Abigail Thomas RN Outcome: Ongoing Problem: Fluid and Electrolyte Imbalance Goal: Fluid and electrolyte balance are achieved/maintained 01/20/2020 1029 by Abigail Thomas RN Outcome: Ongoing 01/20/2020 1013 by Abigail Thomas RN Outcome: Ongoing Problem: Infection Goal: Signs and symptoms of infections are decreased or avoided 01/20/2020 1029 by Abigail Thomas RN Outcome: Ongoing 01/20/2020 1013 by Abigail Thomas RN Outcome: Ongoing * Abigail Thomas RN - 01/20/2020 10:13 AM CDT Problem: Hemodynamic Status/Cardiac Output Goal: Patient has stable vital signs and fluid balance Outcome: Ongoing Problem: Fluid and Electrolyte Imbalance Goal: Fluid and electrolyte balance are achieved/maintained Outcome: Ongoing Problem: Infection Goal: Signs and symptoms of infections are decreased or avoided Outcome: Ongoing * Sabina Crandall PT - 01/20/2020 9:34 AM CDT Pt is currently arianne at Dialysis. Will follow this PM as time allows. Sabina Crandall, PT, DPT [phone] * Kwame Berg MD - 01/20/2020 9:08 AM CDT Progress Note 01/20/2020 Patient Name: Ferdinand Rasmussen CSN: [id number] Date of : 1945 Admit Date: 01/12/2020 8:35 AM Hospital Days: Hospital Day: 8 Subjective: No acute complaints. Due to be discharged but apparently there are concerns regarding family's ability to transport patient to dialysis and back Objective: Temp (30hrs) Max:99.5 ??F (37.5 ??C) BP 127/60 Pulse 84 Temp 98.1 ??F (36.7 ??C) (Oral) Resp 18 Ht 1.575 m (5' 2) Wt 62.8 kg (138 lb 6.4 oz) SpO2 99% BMI 25.31 kg/m?? Lung: Clear to auscultation, no rhonchi or crepitus Cardiovascular: Regular rate and rhythm, normal S1S2 without murmur Abdomen: Soft, bowel sounds positive Labs: Recent Labs Component Name 01/12/20 2308 12/10/19 1049 WBC - 4.0* HGB 10.0* 11.2* HCT 32.1* 35.1* PLTCOUNT - 156 Recent Labs Component Name 01/20/20 0445 SODIUM 136 POTASSIUM 4.3 CHLORIDE 98 CO2 26 BUN 57* CREATININE 6.54* GLUCOSE 125* CALCIUM 8.8 Assessment: 1) ??S/p left hip arthroplasty 2) ??ESRD 3) ??Hypertension 4) ??Diabetes mellitus--diet??controlled 5) ??Atrial fibrillation Plan: Started on eliquis for atrial fibrillation Social service to work on discharge planning OK for discharge--should follow up in our office ([phone]) within one week * Mike Flynn OT - 01/20/2020 8:13 AM CDT Attempted to see pt for OT follow-up; currently ARIANNE for dialysis. Will attempt to see pt at a latertime/date. Mike Flynn OT [phone] 01/20/2020 * Abigail Thomas RN - 01/20/2020 7:20 AM CDT REPORT BEFORE DIALYSIS Reason for admission: Left hip pain/replacement Isolation: no Code Status: Full Orientation Status: x3-4 On telemetry/Rhythm: NSR Oxygen: room air GIven any medications: no Need for pain medications:no Blood pressure issues: stable On any drips: no Is patient diabetic: no Any labs to draw: no Any other procedures today: no Any concerns about this patient: no Any medications to be given with dialysis: epogen 4000 Report from: Sim Koenig Rn Phone number: [phone] * Domi Michel - 01/20/2020 2:58 AM CDT Shift Summary: VSS IV saline locked Hip precautions in place, pt frequently moves abductor pillow Silver dressing to left hip intact Dialysis catheter capped Pt currently resting in bed SR on tele Will continue to monitor * Domi Michel - 01/19/2020 11:38 PM CDT Problem: Pain/Discomfort Goal: Patient exhibits reduced pain/discomfort as evidenced by pain scores Outcome: Ongoing Note: Odlucas will have reduced pain as evidenced by lower pain scores during this shift. Problem: Incision Care Goal: Incision remains intact with edges well approximated Outcome: Ongoing Note: Odlucas's incision will remain intact w/ edges well approximated during this shift. Goal: Incision is free of infection. Outcome: Ongoing Note: Odlucas's incision will remain free of infection during this shift. Problem: Fall Risk Goal: Fall risk and fall related injury risk are minimized Outcome: Ongoing Note: Odale will remain free of injury during this shift. * Tara Velez RN - 01/19/2020 4:28 PM CDT Shift summary: Patient alert and oriented at time, as well as confused at times. Was supposed to discharge today. Spoke with family and they were not aware they would have to be there to schedule histransport for dialysis and be there to care for him. Consult to rehab placed. No complaints of painthis shift. Hip precautions in place. Vital signs stable. Tara Velez RN 01/19/2020 4:29 PM * Maritza Scott RN - 01/19/2020 2:42 PM CDT Ortho POD# 7 CARLOZ Awake, alert Afebrile Went into afib 01/16, echo completed Incisional area-??silver dressing intact Pain controlled VTE Prophylaxis:eliquis 2.5 BID Progressing??w/ PT Plan: pt refusing SNF wants to go home. Therapy recommending 24 hour care at home. Pt states he will have 24 hour care at home RN talked to family, who is concerned about patient going to dialysis several times a week/and willnot have enough help at home Family is to talk to patient about possibility of SNF * Calixto Wahl PharmD - 01/19/2020 2:36 PM CDT Pharmacy DOAC Education: DOAC education for A. Fib for anticoagulation and booklet provided to patient. Information regarding patient's specific agent was highlighted. Discussed all major counseling topics including: Indication for apixaban (ELIQUIS) therapy and importance of taking DOAC as prescribed. Information on DOAC dosing, including strategies for adherence if necessary. Potential for other medications to interact with DOAC therapy and advised not to take start or discontinue any medication or [id number] medication without the advice of their health childcare aide. Adverse effects, including signs and symptoms of bleeding were explained as DOAC increases the riskof bleeding. Reviewed plan for discharge supply and discussed potential barriers (financial, insurance, etc) including who to follow-up with if unable to fill DOAC Patient verbalized understanding. Opportunities for questions provided. Calixto Wahl, [facility], ext [phone] * Shahnaz Allen, PT - 01/19/2020 1:40 PM CDT Physical Therapy Treatment Summary Patient was seen BID this date for physical therapy. Pt consented to treatment. Subjective: Alert and oriented to person and situation only. No complaints of pain during treatment. Objective: Transfers: Supine to/from sit with SBA Sit to/from stand with SBA Ambulation: Patient ambulated 150 feet with wh walker and SBA of 1 Steps/Curb: Instructed patient to ascend/descend 4 steps with one hand railing and mod assist of 1; constant verbal cues for safety and technique Exercise: Patient performed 15 reps of CARLOZ HEP. Patient educated in home safety tips, fall precautions, HEP and reviewed posterior CARLOZ precautions. Patient remained in reach of call light. Hip abd wedge in place following treatment. Bed alarm activated. Assessment/Plan: Tolerated treatment well. However, safety is a concern for home. He must have 24/7care, supervision and physical assistance if returning home after discharge. Patient has 2 flights of steps to enter his apartment and he needs mod assist to navigate the steps. Patient may benefit from SNF vs acute rehab after discharge in order to work on overall strengthening, endurance and additional practice on multiple steps. Shahnaz Allen, PT ascom [phone] 01/19/2020 * Neli Das RN - 01/19/2020 1:08 PM CDT Spoke with patient who is aware of discharge home today. [facility] ordered. Please call [facility] at [phone] for transportation by ambulance, patient has 2 flights of steps to enter 2nd floor apartment. Patient has a 2-Wheeled Walker. Patient denies any other discharge needs. Patient declined offer to contact family/caregiver to discuss discharge plans. Spoke with patient's nurse Nina regarding the above. 1445-Received call from patient's niece Radha who states patient will not have 24 hour care at home and will need to go to rehab. Patient does not have SNF benefit with Medicaid. Radha would like him to go to acute rehab. Spoke with patient's nurse Nina who will speak with MD and obtain rehab consult order. She is concerned about patient transferring to dialysis. He does transport by [employer] to dialysis. Neli Das RN/Integrity AssessorAusvhqb-[phone] * Tara Velez RN - 01/19/2020 1:08 PM CDT Attempted to call nephew to discuss discharge. Unable to get a hold of at this time. Tara Velez RN 01/19/2020 1:08 PM * Naveen Blackman MD - 01/19/2020 12:10 PM CDT Renal Progress Note Ferdinand Rasmussen [id number] Symptoms Patient denies fever, chills, chest pain, cough, sob, N/V, abdominal pain Vitals: 01/18/20201401/19/20 0350 01/19/20 0743 01/19/20 1153 BP: 152/65 147/51 150/63 121/51 Pulse: 76 80 86 70 Resp: Temp: 99.1 ??F (37.3 ??C) 99.5 ??F (37.5 ??C) 98.6 ??F (37 ??C) 98.5 ??F (36.9 ??C) SpO2: 98% 99% 98% 98% Weight: Height: Temp (30hrs) Max:99.5 ??F (37.5 ??C) Intake/Output Summary (Last 24 hours) at 01/19/2020 1210 Last data filed at 01/19/2020 1007 Gross per 24 hour Intake 680 ml Output 1000 ml Net -320 ml Filed Wts: 01/12/20 0853 Weight: 62.8 kg (138 lb 6.4 oz) . MEDICATIONS FOR CURRENT ENCOUNTER: SCHEDULED MEDICATIONS: allopurinol (ZYLOPRIM) tablet 100 mg, Oral, QDAY apixaban (ELIQUIS) tablet 2.5 mg, Oral, BID atorvastatin (LIPITOR) tablet 20 mg, Oral, AT BEDTIME dilTIAZem coated beads 24hr (CARDIZEM CD) capsule 120 mg, Oral, QDAY docusate sodium (COLACE) capsule 100 mg, Oral, BID epoetin ashly-EPBX (RETACRIT) injection 4,000 Units, Subcutaneous, q7 days famotidine (PEPCID) tablet 20 mg, Oral, QDAY furosemide (LASIX) tablet 80 mg, Oral, BID lisinopril (PRINIVIL;ZESTRIL) tablet 5 mg, Oral, QDAY polyethylene glycol 3350 (MIRALAX) packet 17 g, Oral, QDAY rOPINIRole (REQUIP) tablet 0.5 mg, Oral, AT BEDTIME sevelamer carbonate (RENVELA) tablet 800 mg, Oral, TID WC sodium bicarbonate tablet 325 mg, Oral, QDAY tamsulosin (FLOMAX) capsule 0.4 mg, Oral, AT BEDTIME ?? [COMPLETED] Influenza Vac High-Dose Quad (FLUZONE) injection (65 years +) 0.7 mL, Intramuscular,Immunization - Once ?? CONTINUOUS MEDICATIONS: PRN MEDICATIONS: Or Or acetaminophen (TYLENOL) tablet 650 mg, Oral, q6h PRN bisacodyl (DULCOLAX) suppository 10 mg, Rectal, QDAY PRN bisacodyl EC (DULCOLAX) tablet 5 mg, Oral, QDAY PRN calcium carbonate (TUMS) chew tablet 2 tablet, Oral, q4h PRN diphenhydrAMINE (BENADRYL) capsule 25 mg, Oral, q6h PRN HYDROcodone-acetaminophen (NORCO) 10-325 MG tablet 1 tablet, Oral, q4h PRN HYDROcodone-acetaminophen (NORCO) 5-325 MG tablet 1 tablet, Oral, q4h PRN magnesium hydroxide (MILK OF MAGNESIA) suspension 30 mL, Oral, QDAY PRN naloxone (NARCAN) injection 0.4 mg, Intravenous, PRN ondansetron (disintegrating) (ZOFRAN ODT) tablet 4 mg, Oral, q6h PRN throat lozenge 1 lozenge, Oral, q2h PRN ?? zolpidem (AMBIEN) tablet 5 mg, Oral, AT BEDTIME PRN Exam General appearance: alert, cooperative, no distress Neck: supple Lungs: breath sounds normal and symmetric; no rales or wheezes Heart: regular rhythm, normal S1 and S2, without murmurs, gallops or rubs Abdomen: soft without mass, non-tender, with normal bowel sounds Extremities: no clubbing, cyanosis or edema ?? Results Recent Labs Component Name 01/19/20 0350 01/18/20 0307 01/17/20 0431 SODIUM 135* 140 140 POTASSIUM 4.2 4.0 3.9 CHLORIDE 94* 101 99 CO2 32* 28 30 BUN 33* 58* 44* CREATININE 4.60* 7.47* 6.02* GLUCOSE 110* 121* 116* CALCIUM 9.0 8.7 8.4 ALBUMIN 3.5 3.2 3.1* PHOS 2.8 3.9 3.6 No results for input(s): MAGMGDL in the last 99813 hours. Recent Labs Component Name 09/230712/10/19 1049 10/13/19 1215 05/27/19 1913 WBC - 4.0* 6.6 4.5 HGB 10.0* 11.2* 11.7* 8.5* HCT 32.1* 35.1* 37.3 28.2* PLTCOUNT - 156 187 215 No results for input(s): COLORUA, CHARACTERUA, SPECGRAVUA, PHUA, PROTEINUA, BLOODUA, LEUKOCYTEUA, NITRITEUA, GLUCOSEUA, KETONEUA, BILIRUBINUA, UROBILINUA, WBCUA, RBCUA, EPITHUA, MUCUSUA, CASTUA, CRYSTALUA, BACTERIAUA, YEASTUA, TRICHUA in the last 46832 hours. .chest X-ray ..us No results for input(s): PT in the last 52704 hours. No results for input(s): INR in the last 65207 hours. No results for input(s): BNP in the last 33041 hours. Recent Labs Component Name 01/12/20230712/10/19 1049 WBC - 4.0* RBC - 3.28* HGB 10.0* 11.2* HCT 32.1* 35.1* MCV - 107.0* MCH - 34.1* MCHC - 31.9 PLTCOUNT - 156 Assessment and Plan 1. ESRD/severe chronic kidney disease, on chronic dialysis. 2. Hypertension, part is due to volume, hope with dialysis this will be better 3. Chronic recurrent volume overload due to ESRD, compensated well on dialysis 4. Hyperkalemia due to ESRD, K stable 5. Anemia, probably related to his CKD, R/O loss causing anemia 6. S/p left hip arthroplasty Naveen Blackman Office [phone] * Pavel Pimentel RDCS - 01/19/2020 11:34 AM CDT Echocardiogram completed today. * Tara Velez RN - 01/19/2020 10:39 AM CDT Problem: Pain/Discomfort Goal: Patient exhibits reduced pain/discomfort as evidenced by pain scores Outcome: Ongoing Problem: Incision Care Goal: Incision remains intact with edges well approximated Outcome: Ongoing Goal: Incision is free of infection. Outcome: Ongoing Problem: Fall Risk Goal: Fall risk and fall related injury risk are minimized Outcome: Ongoing Problem: Fluid and Electrolyte Imbalance Goal: Fluid and electrolyte balance are achieved/maintained Outcome: Ongoing Problem: Infection Goal: Signs and symptoms of infections are decreased or avoided Outcome: Ongoing Problem: Nutrient: Increased nutrient needs (specify) Description: related to:: renal dysfunction Goal: Total intake will meet estimated nutrient needs Description: Ferdinand's Nutrition Goal: Total intake will meet estimated nutrient needs Nutrition GoalTimeframe: Throughout stay Outcome: Ongoing * Kwame Berg MD - 01/19/2020 8:59 AM CDT Progress Note 01/19/2020 Patient Name: Ferdinand Rasmussen CSN: [id number] Date of : 1945 Admit Date: 01/12/2020 8:35 AM Hospital Days: Hospital Day: 7 Subjective: Sitting up in chair, denies nausea, vomiting or shortness of breath Objective: Temp (30hrs) Max:99.5 ??F (37.5 ??C) BP 150/63 Pulse 86 Temp 98.6 ??F (37 ??C) (Oral) Resp 18 Ht 1.575 m (5' 2) Wt 62.8 kg (138 lb 6.4 oz) SpO2 98% BMI 25.31 kg/m?? Lung: Clear to auscultation, no rhonchi or crepitus Cardiovascular: Regular rate and rhythm, normal S1S2 without murmur Abdomen: Soft, bowel sounds positive Labs: Recent Labs Component Name 01/12/20 2308 12/10/19 1049 WBC - 4.0* HGB 10.0* 11.2* HCT 32.1* 35.1* PLTCOUNT - 156 Recent Labs Component Name 01/19/20 0350 SODIUM 135* POTASSIUM 4.2 CHLORIDE 94* CO2 32* BUN 33* CREATININE 4.60* GLUCOSE 110* CALCIUM 9.0 Assessment: 1) ??S/p left hip arthroplasty 2) ??ESRD 3) ??Hypertension--elevated BP this morning should fall with dialysis 4) ??Diabetes mellitus--diet??controlled 5) ??Atrial fibrillation Plan: Started on eliquis for atrial fibrillation OK for discharge--should follow up in our office ([phone]) within one week * Mike Flynn OT - 01/19/2020 8:52 AM CDT Occupational Therapy Treatment Summary Chart reviewed for diagnosis and medical systems review. Nursing consented for OT. Explained purpose of OT and patient consented to participate in therapy. PPE worn by staff: eye protection;gloves;mask - surgical Precautions: Fall, skin, Post. CARLOZ precautions SUBJECTIVE: Pt. Stated I can't bend past 90* Pt. Verbalizes 2/3 hip precautions this date. Psychosocial: Patient Behaviors: Calm;Cooperative Pt's goal for therapy: Go home OBJECTIVE: Pain Assessment: Pain Rating Score #: 0 Pain Location : Hip Pain Orientation: Left Cognition: Orientation Level: Oriented to Person;Oriented to Place;Oriented to Situation;Disoriented to Time Level of Consciousness-Adult: Alert Cognition: Processing-delayed;Follows Commands-Consistent;Follows one step commands;Judgement-decreased;Safety awareness-decreased;Memory impairment-short term Functional Mobility: Bed Mobility: Supine to Sit: Activity Does Not Occur(in chair at start/end) Sit to Supine: Activity Does Not Occur(in chair at end) Transfers: Sit to Stand: Stand By Assist Stand to Sit: Stand By Assist Toilet Transfers: Minimal Assistance Balance: Sitting - Static: Good - Sitting - Dynamic: (Good-) Standing - Static: Good -;With Both Upper Extremity's Support Standing - Dynamic: Fair +;With Both Upper Extremity's Support ADL Tasks: Feeding: Complete [place] Oral Facial Hygiene: Set-up(seated) Bathing: Moderate Assistance(anticipated) Upper Body Dressing: Set-up(seated) Lower Body Dressing: Moderate Assistance Toileting: Minimal Assistance Activity Tolerance/Vital Signs: Activity Tolerance: Requires rest breaks ASSESSMENT: Pt. Educated on FWW use, transfer techniques, safety strategies and purpose of OT. Pt. Demos steady progress towards therapy goals, however continues to require increased physical assist from reported PLOF for ADLs and functional tasks/transfers. Pt. Demos improved understanding of post. CARLOZ precautions this date although continues to require min VC's for adherence. Pt. Requires continued re-education on use of AE, though, demos some improvement this date compared to prior session. Pt. Requires mod VC's for safety/technique with FWW, transfers and ADL tasks, as well as for problemsolving, attention, processing, memory, safety awareness and need for simple one step commands. Pt. Incontinent of urine upon donning underwear this date, urinating on floor, requiring increased timefor cleanup. Call light and phone in reach with chair alarm activated. All lines, monitors, IV's, equipment in place and intact pre and post visit. RN, notified of patient's performance/location end of session. Please refer to the Filed Flowsheet OT Treatment for further details. Refer to care plan for goals. RECOMMENDATIONS/PLAN: AM-PAC Basic Activity score for this patient is CMS 0-100% Score (Calculated): 50.11 % degree of impairment with higher scores indicating patient may benefit from further inpatient services. OT Discharge Recommendations: Inpatient Rehab If this is the last Occupational Therapy visit, this serves as the discharge summary. Mike Flynn OT x [phone] * Mana Oliva MD - 01/19/2020 8:27 AM CDT Cardiology Progress Note Admit Date: 01/12/2020 Hospital Day: 7 Follow up for: A-fib Symptoms No chest pain or shortness of breath. Tele: SR Vital signs Vitals: 01/18/20 1529 01/18/20 2015 01/19/20 0350 01/19/20 0743 BP: 117/70 152/65 147/51 150/63 Pulse: 82 76 80 86 Resp: 18 16 16 18 Temp: 99.1 ??F (37.3 ??C) 99.1 ??F (37.3 ??C) 99.5 ??F (37.5 ??C) 98.6 ??F (37 ??C) SpO2: 99% 98% 99% 98% Weight: Height: Intake/Output Summary (Last 24 hours) at 01/19/2020 0827 Last data filed at 01/19/2020 0748 Gross per 24 hour Intake 920 ml Output 2225 ml Net -1305 ml Exam 01/19/2020 Lungs: Clear to auscultation and percussion Heart: S1 and S2 normal. No murmur. No gallop or rub Abdomen: Soft, nontender, bowel sounds active. Extremities: No edema SCHEDULED MEDICATIONS: allopurinol (ZYLOPRIM) tablet 100 mg, Oral, QDAY apixaban (ELIQUIS) tablet 2.5 mg, Oral, BID atorvastatin (LIPITOR) tablet 20 mg, Oral, AT BEDTIME dilTIAZem coated beads 24hr (CARDIZEM CD) capsule 120 mg, Oral, QDAY docusate sodium (COLACE) capsule 100 mg, Oral, BID epoetin ashly-EPBX (RETACRIT) injection 4,000 Units, Subcutaneous, q7 days famotidine (PEPCID) tablet 20 mg, Oral, QDAY furosemide (LASIX) tablet 80 mg, Oral, BID Influenza Vac High-Dose Quad (FLUZONE) injection (65 years +) 0.7 mL, Intramuscular, Immunization -Once lisinopril (PRINIVIL;ZESTRIL) tablet 5 mg, Oral, QDAY polyethylene glycol 3350 (MIRALAX) packet 17 g, Oral, QDAY rOPINIRole (REQUIP) tablet 0.5 mg, Oral, AT BEDTIME sevelamer carbonate (RENVELA) tablet 800 mg, Oral, TID WC sodium bicarbonate tablet 325 mg, Oral, QDAY ?? tamsulosin (FLOMAX) capsule 0.4 mg, Oral, AT BEDTIME ?? CONTINUOUS MEDICATIONS: PRN MEDICATIONS: Or Or acetaminophen (TYLENOL) tablet 650 mg, Oral, q6h PRN bisacodyl (DULCOLAX) suppository 10 mg, Rectal, QDAY PRN bisacodyl EC (DULCOLAX) tablet 5 mg, Oral, QDAY PRN calcium carbonate (TUMS) chew tablet 2 tablet, Oral, q4h PRN diphenhydrAMINE (BENADRYL) capsule 25 mg, Oral, q6h PRN HYDROcodone-acetaminophen (NORCO) 10-325 MG tablet 1 tablet, Oral, q4h PRN HYDROcodone-acetaminophen (NORCO) 5-325 MG tablet 1 tablet, Oral, q4h PRN magnesium hydroxide (MILK OF MAGNESIA) suspension 30 mL, Oral, QDAY PRN naloxone (NARCAN) injection 0.4 mg, Intravenous, PRN ondansetron (disintegrating) (ZOFRAN ODT) tablet 4 mg, Oral, q6h PRN throat lozenge 1 lozenge, Oral, q2h PRN ?? zolpidem (AMBIEN) tablet 5 mg, Oral, AT BEDTIME PRN Labs Recent Labs Component Name 01/19/20 0350 01/18/20 0307 01/17/20 0431 SODIUM 135* 140 140 POTASSIUM 4.2 4.0 3.9 CHLORIDE 94* 101 99 CO2 32* 28 30 BUN 33* 58* 44* CREATININE 4.60* 7.47* 6.02* GLUCOSE 110* 121* 116* Recent Labs Component Name 01/12/20 2308 12/10/19 1049 10/13/19 1215 05/27/19 1913 WBC - 4.0* 6.6 4.5 HGB 10.0* 11.2* 11.7* 8.5* HCT 32.1* 35.1* 37.3 28.2* PLTCOUNT - 156 187 215 Cardiographics Echo: pending ?? Assessment: ?? Paroxysmal atrial fibrillation, rate controlled. CHADS-VASc score is 4. ?? S/P total left hip arthroplasty. ?? Dementia. Denies falling ?? ESRD on HD ?? DM ?? HTN ?? Plan: ?? Echo still pending ?? Continue telemetry monitoring ?? On Eliquis 2.5 mg po bid. Mana Oliva MD, FACC 01/19/2020 * Krista Rojas, PT - 01/19/2020 8:09 AM CDT Physical Therapy Treatment Summary Chart review completed. Nursing consented for PT. Explained purpose of PT and patient consented to participate in therapy. SUBJECTIVE: Pt states his nephew is going to pick him up today. States some lady will be home with him during the day. Able to state 2/3 hip precautions and not able to state how to go up/down stairs. Patient's Goal for the Day: To walk and eat breakfast Pain Assessment: Pain Rating Score #: 0 Pain Location : Hip Pain Orientation: Left OBJECTIVE: Orientation Level: Oriented to Person Precautions: fall and hip precautions Bed Mobility: Supine to Sit: Stand By Assist;Requires Verbal Cues for Safety;Requires Verbal Cues for Technique(HOB ~ 30 significant increase in time, getting out on L ) Sit to Supine: Minimal Assistance(for L LE ) Transfers: Sit to Stand: Stand By Assist Stand to Sit: Stand By Assist Mobility: Distance Ambulated: 150 FEET Ambulation: Assistive Device: Gait Belt;Walker-2 Wheeled Ambulation: Level of Assistance: Stand By Assist;Requires Verbal Cues for Safety;Requires Verbal Cues for Technique Ambulation: Gait Deviations: Renetta - Decreased;Increased Trunk Flexion;Shuffling gait;Step Length- Decreased Weight Bearing Status-LLE: Weight Bearing as Tolerated Weight Bearing Status-RLE: Weight Bearing as Tolerated Balance: Sitting - Static: Good Sitting - Dynamic: Good - Standing - Static: Good -;With Both Upper Extremity's Support Standing - Dynamic: Fair +;With Both Upper Extremity's Support Activity Tolerance and O2 Requirements: Activity Tolerance: Requires rest breaks O2 DEVICE: Room Air - None INTERVENTION/ASSESSMENT: Pt tolerated treatment fair. Pt able to walk in the lim this session. 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 Pt only able to verbalize 2/3 hip precautions and not able to verbalize how to go up/down stairs; handout provided and re-educated pt. No LOB and far safety awareness. Mobility limited due to decreased cognition, pain, weakness, decreased endurance and decreased balance. Call light and phone in reach Pt left in chair with chair alarm activated. All lines, monitors, IV's, equipment in place and intact pre and post visit. RN, notified of patient's performance/location end of session. Educated patient/family in need for 24/7 supervision and hip precautions Pt educated in PT plan of care, fall precautions, and benefits of OOB activity. Please refer to the Filed Flowsheet for further details. Refer to Plan of Care for PT goals. RECOMMENDATIONS/PLAN: Patient will benefit from HHPT and HOME WITH 24/7 SUPERVISION if not available pt would benefit from rehab at discharge to maximize independence and functional mobility. If this is the last Physical Therapy visit, this note serves as the discharge summary. Krista Rojas, PT, DPT, CCS x [phone] * Sol Garay RN - 01/19/2020 2:24 AM CDT Shift Summary: No complaints overnight. CHG bath completed. Tunneled cath dressing replaced when ptremoved it. Tele monitor: SR Oxygen: RA Vital signs as documented. Activity: pt is non-compliant with hip precautions. Pillow replaced frequently. Turns self in bed. A&OX3 Pain: denies pain Safety precautions maintained. Call light in reach. Bed alarm on. Sol Garay RN 01/19/2020 7:34 AM * Sol Garay RN - 01/19/2020 2:22 AM CDT Problem: Hemodynamic Status/Cardiac Output Goal: Patient has stable vital signs and fluid balance 01/19/2020221 by Sol Garay RN Outcome: Ongoing VSS. Problem: Infection Goal: Signs and symptoms of infections are decreased or avoided 01/19/2020221 by Sol Garay RN Outcome: Ongoing No signs of infection. Problem: Pain/Discomfort Goal: Patient exhibits reduced pain/discomfort as evidenced by pain scores 01/19/2020221 by Sol Garay RN Outcome: Ongoing Denies pain. Problem: Fluid and Electrolyte Imbalance Goal: Fluid and electrolyte balance are achieved/maintained 01/19/2020221 by Sol Garay RN * Paz Ponce RN - 01/18/2020 3:58 PM CDT Ortho POD#6 Awake, alert Afebrile Had dialysis today Went into afib yesterday, cardiology consulted, Had echo done today Cardiology consult today for a fib Incisional area- silver dressing intact- minimal drainage Pain controlled VTE Prophylaxis: Cardiology is wanting pt on eliquis 2.5 BID- okay per Dr. Agudelo Progressing w/ PT Plan: pt refusing SNF wants to go home. Therapy recommending 24 hour care at home. Pt states he will have 24 hour care at home Hopefully home tomorrow if medically stable * Shahnaz Allen, PT - 01/18/2020 2:22 PM CDT Physical Therapy Treatment Summary Chart review completed. Nursing consented for PT. (KAITLYNN Hassan) Explained purpose of PT and patient consented to participate in therapy. PPE worn by staff: eye protection;gloves;mask - surgical PPE worn by patient: gown - patient, clean;mask - surgical;socks - clean SUBJECTIVE: I'm alright. I'm ok. Mild left hip pain with activity; denies left hip pain at rest. Patient's Goal for the Day: None stated. Pain Assessment: Pain Rating Score #: (minimal complaints of left hip pain) OBJECTIVE: Orientation Level: Disoriented to Time;Oriented to Person;Oriented to Place;Oriented to Situation Precautions: Fall precautions (bed alarm activated). Left posterior CARLOZ precautions (written and verbal instructions provided). Bed Mobility: Supine to Sit: Minimal Assistance Sit to Supine: Minimal Assistance Transfers: Sit to Stand: Stand By Assist Stand to Sit: Stand By Assist Mobility: Distance Ambulated: 150 FEET Ambulation: Assistive Device: Gait Belt;Walker-2 Wheeled Ambulation: Level of Assistance: Stand By Assist;Requires Verbal Cues for Safety;Requires Verbal Cues for Technique Ambulation: Gait Deviations: Renetta - Decreased;Heel Strike - Decreased;Push Off - Decreased;Shuffling gait;Step Length - Decreased Weight Bearing Status-LLE: Weight Bearing as Tolerated Balance: Sitting - Static: Good Sitting - Dynamic: Good Standing - Static: Good -;With Both Upper Extremity's Support Standing - Dynamic: Good -;With Both Upper Extremity's Support Activity Tolerance and O2 Requirements: O2 DEVICE: Room Air - None Vital Signs: SpO2: 98 % Pulse: 86 BP: 141/65 Exercise: 15 reps bilat ankle pumps, quad/glut sets, SAQ and heel slides. Reviewed left posterior CARLOZ precautions. Up/down 4 steps with right side hand railing and min assist of 1; verbal cues for safety and technique. ASSESSMENT: Tolerated treatment well. Steady progress with PT. Practiced steps with patient today; patient required min assist for navigating steps with one hand railing. He has been issued a gait belt for home safety use. (and educated in proper usage) Call light and phone in reach with bed alarm activated. Hip abd wedge in place. RN, Sonya, notified of patient's performance/location end of session. Pt educated in PT plan of care, fall precautions, and benefits of OOB activity. PT Tara Sanchez, present to assist throughout the session. Please refer to the Filed Flowsheet for further details. Refer to Plan of Care for PT goals. RECOMMENDATIONS/PLAN: Recommend continued PT after discharge. If going home, patient will need 24/7care, supervision, physical assist and HH. If not returning home, SNF or acute rehab may be beneficial after discharge. If this is the last Physical Therapy visit, this note serves as the discharge summary. Shahnaz Allen, PT x [phone] * Naveen Blackman MD - 01/18/2020 12:03 PM CDT Renal Progress Note Ferdinand Stephen [id number] Symptoms Patient denies fever, chills, chest pain, cough, sob, N/V, abdominal pain Vitals: 01/18/20 1000 01/18/20 1015 01/18/20 1020 01/18/20 1041 BP: 153/59 143/61 154/86 162/52 Pulse: 82 81 88 83 Resp: Temp: 98.2 ??F (36.8 ??C) 98.4 ??F (36.9 ??C) SpO2: 100% Weight: Height: Temp (30hrs) Max:99.4 ??F (37.4 ??C) Intake/Output Summary (Last 24 hours) at 01/18/2020 1203 Last data filed at 01/18/2020 1020 Gross per 24 hour Intake 200 ml Output 1600 ml Net -1400 ml Filed Wts: 01/12/20 0853 Weight: 62.8 kg (138 lb 6.4 oz) . MEDICATIONS FOR CURRENT ENCOUNTER: SCHEDULED MEDICATIONS: allopurinol (ZYLOPRIM) tablet 100 mg, Oral, QDAY aspirin chew tablet 81 mg, Oral, BID WC atorvastatin (LIPITOR) tablet 20 mg, Oral, AT BEDTIME dilTIAZem coated beads 24hr (CARDIZEM CD) capsule 120 mg, Oral, QDAY docusate sodium (COLACE) capsule 100 mg, Oral, BID epoetin ashly-EPBX (RETACRIT) injection 4,000 Units, Subcutaneous, q7 days famotidine (PEPCID) tablet 20 mg, Oral, QDAY furosemide (LASIX) tablet 80 mg, Oral, BID lisinopril (PRINIVIL;ZESTRIL) tablet 5 mg, Oral, QDAY polyethylene glycol 3350 (MIRALAX) packet 17 g, Oral, QDAY rOPINIRole (REQUIP) tablet 0.5 mg, Oral, AT BEDTIME sevelamer carbonate (RENVELA) tablet 800 mg, Oral, TID WC sodium bicarbonate tablet 325 mg, Oral, QDAY tamsulosin (FLOMAX) capsule 0.4 mg, Oral, AT BEDTIME [COMPLETED] celecoxib (CeleBREX) capsule 100 mg, Oral, q12h [] acetaminophen (TYLENOL) tablet 650 mg, Oral, q6h ?? [START ON 01/19/2020] Influenza Vac High-Dose Quad (FLUZONE) injection (65 years +) 0.7 mL, Intramuscular, Immunization - Once ?? CONTINUOUS MEDICATIONS: PRN MEDICATIONS: Or Or acetaminophen (TYLENOL) tablet 650 mg, Oral, q6h PRN bisacodyl (DULCOLAX) suppository 10 mg, Rectal, QDAY PRN bisacodyl EC (DULCOLAX) tablet 5 mg, Oral, QDAY PRN calcium carbonate (TUMS) chew tablet 2 tablet, Oral, q4h PRN diphenhydrAMINE (BENADRYL) capsule 25 mg, Oral, q6h PRN HYDROcodone-acetaminophen (NORCO) 10-325 MG tablet 1 tablet, Oral, q4h PRN HYDROcodone-acetaminophen (NORCO) 5-325 MG tablet 1 tablet, Oral, q4h PRN magnesium hydroxide (MILK OF MAGNESIA) suspension 30 mL, Oral, QDAY PRN naloxone (NARCAN) injection 0.4 mg, Intravenous, PRN ondansetron (disintegrating) (ZOFRAN ODT) tablet 4 mg, Oral, q6h PRN throat lozenge 1 lozenge, Oral, q2h PRN ?? zolpidem (AMBIEN) tablet 5 mg, Oral, AT BEDTIME PRN Exam General appearance: alert, cooperative, no distress Neck: supple Lungs: breath sounds normal and symmetric; no rales or wheezes Heart: regular rhythm, normal S1 and S2, without murmurs, gallops or rubs Abdomen: soft without mass, non-tender, with normal bowel sounds Extremities: no clubbing, cyanosis or edema ?? Results Recent Labs Component Name 01/18/20 0307 01/17/20 0431 01/16/20 0421 SODIUM 140 140 137 POTASSIUM 4.0 3.9 3.7 CHLORIDE 101 99 99 CO2 28 30 31 BUN 58* 44* 23 CREATININE 7.47* 6.02* 3.89* GLUCOSE 121* 116* 110* CALCIUM 8.7 8.4 8.4 ALBUMIN 3.2 3.1* 3.1* PHOS 3.9 3.6 2.9 No results for input(s): MAGMGDL in the last 83041 hours. Recent Labs Component Name 01/12/20 2308 12/10/19 1049 10/13/19 1215 05/27/19 1913 WBC - 4.0* 6.6 4.5 HGB 10.0* 11.2* 11.7* 8.5* HCT 32.1* 35.1* 37.3 28.2* PLTCOUNT - 156 187 215 No results for input(s): COLORUA, CHARACTERUA, SPECGRAVUA, PHUA, PROTEINUA, BLOODUA, LEUKOCYTEUA, NITRITEUA, GLUCOSEUA, KETONEUA, BILIRUBINUA, UROBILINUA, WBCUA, RBCUA, EPITHUA, MUCUSUA, CASTUA, CRYSTALUA, BACTERIAUA, YEASTUA, TRICHUA in the last 80439 hours. .chest X-ray ..us No results for input(s): PT in the last 15369 hours. No results for input(s): INR in the last 33092 hours. No results for input(s): BNP in the last 58384 hours. Recent Labs Component Name 01/12/20 2308 12/10/19 1049 WBC - 4.0* RBC - 3.28* HGB 10.0* 11.2* HCT 32.1* 35.1* MCV - 107.0* MCH - 34.1* MCHC - 31.9 PLTCOUNT - 156 Assessment and Plan 1. ESRD/severe chronic kidney disease, on chronic dialysis. 2. Hypertension, BP stable 3. Chronic recurrent volume overload due to ESRD, compensated well on dialysis 4. Hyperkalemia due to ESRD, K stable 5. Anemia, probably related to his CKD, R/O loss causing anemia 6. S/p left hip arthroplasty Naveen Blackman Office [phone] * Sonya Osborne RN - 01/18/2020 12:01 PM CDT Shift Summary In dialysis this morning. Oriented to person, place, and situation. No complaints of pain this shift. Nurse is trying to maintain hip precautions. Patient keeps removing the abductor pillow. Nurse continues to reeducate the patient and put the abductor pillow back in place. No complaints of pain this shift. Refuses SCDs and stool softeners. Medications given per JUN. Bed in the low locked position. Bed alarm on. Call light in reach. Will continue to monitor. * Sonya Osborne RN - 01/18/2020 11:05 AM CDT Problem: Pain/Discomfort Goal: Patient exhibits reduced pain/discomfort as evidenced by pain scores Outcome: Ongoing Problem: Incision Care Goal: Incision remains intact with edges well approximated Outcome: Ongoing Goal: Incision is free of infection. Outcome: Ongoing Problem: Fall Risk Goal: Fall risk and fall related injury risk are minimized Outcome: Ongoing * Abigail Thomas RN - 01/18/2020 10:21 AM CDT Problem: Hemodynamic Status/Cardiac Output Goal: Patient has stable vital signs and fluid balance Outcome: Ongoing Problem: Fluid and Electrolyte Imbalance Goal: Fluid and electrolyte balance are achieved/maintained Outcome: Ongoing Problem: Infection Goal: Signs and symptoms of infections are decreased or avoided Outcome: Ongoing * Kwame Berg MD - 01/18/2020 8:36 AM CDT Progress Note 01/18/2020 Patient Name: Ferdinand Rasmussen CSN: [id number] Date of : 1945 Admit Date: 01/12/2020 8:35 AM Hospital Days: Hospital Day: 6 Subjective: Complains of feet burning intermittently Objective: Temp (30hrs) Max:99.4 ??F (37.4 ??C) BP (!) 193/76 Pulse 81 Temp 98.1 ??F (36.7 ??C) (Oral) Resp 18 Ht 1.575 m (5' 2) Wt 62.8kg (138 lb 6.4 oz) SpO2 98% BMI 25.31 kg/m?? Glucoses: 104 - 99 - 110 - 116 Lung: Clear to auscultation, no rhonchi or crepitus Cardiovascular: Regular rate and rhythm, normal S1S2 without murmur Abdomen: Soft, bowel sounds positive Extrem: No edema, pedal pulses not palpable Labs: Recent Labs Component Name 01/12/20 2308 12/10/19 1049 WBC - 4.0* HGB 10.0* 11.2* HCT 32.1* 35.1* PLTCOUNT - 156 Recent Labs Component Name 01/18/20 0307 SODIUM 140 POTASSIUM 4.0 CHLORIDE 101 CO2 28 BUN 58* CREATININE 7.47* GLUCOSE 121* CALCIUM 8.7 TSH 0.392 Assessment: 1) ??S/p left hip arthroplasty 2) ??ESRD 3) ??Hypertension--elevated BP this morning should fall with dialysis 4) ??Diabetes mellitus--diet controlled 5) Atrial fibrillation Plan: Dialysis per Dr. Blackman Check ECHO Can start Eliquis when OK with ortho Medically stable for discharge * Mana Oliva MD - 01/18/2020 8:00 AM CDT Cardiology Progress Note Admit Date: 01/12/2020 Hospital Day: 6 Follow up for: A-fib Symptoms Examined in dialysis Patient denies chest pain or shortness of breath. Tele: SR Vital signs Vitals: 01/18/20 0620 01/18/20 0640 01/18/20 0700 01/18/20 0720 BP: 145/70 135/64 169/61 164/75 Pulse: 72 78 66 69 Resp: 18 18 18 18 Temp: SpO2: Weight: Height: Intake/Output Summary (Last 24 hours) at 01/18/2020 0800 Last data filed at 01/17/2020 2000 Gross per 24 hour Intake 320 ml Output 600 ml Net -280 ml Exam 01/18/2020 Lungs: Clear to auscultation and percussion Heart: S1 and S2 normal. No murmur. No gallop or rub Abdomen: Soft, nontender, bowel sounds active. Extremities: No edema ?? SCHEDULED MEDICATIONS: ?? allopurinol (ZYLOPRIM) tablet 100 mg, Oral, QDAY ?? aspirin chew tablet 81 mg, Oral, BID WC ?? atorvastatin (LIPITOR) tablet 20 mg, Oral, AT BEDTIME ?? dilTIAZem coated beads 24hr (CARDIZEM CD) capsule 120 mg, Oral, QDAY ?? docusate sodium (COLACE) capsule 100 mg, Oral, BID ?? epoetin ashly-EPBX (RETACRIT) injection 4,000 Units, Subcutaneous, q7 days ?? famotidine (PEPCID) tablet 20 mg, Oral, QDAY ?? furosemide (LASIX) tablet 80 mg, Oral, BID ?? lisinopril (PRINIVIL;ZESTRIL) tablet 5 mg, Oral, QDAY ?? polyethylene glycol 3350 (MIRALAX) packet 17 g, Oral, QDAY ?? rOPINIRole (REQUIP) tablet 0.5 mg, Oral, AT BEDTIME ?? sevelamer carbonate (RENVELA) tablet 800 mg, Oral, TID WC ?? sodium bicarbonate tablet 325 mg, Oral, QDAY ?? tamsulosin (FLOMAX) capsule 0.4 mg, Oral, AT BEDTIME ?? [COMPLETED] celecoxib (CeleBREX) capsule 100 mg, Oral, q12h ?? [] acetaminophen (TYLENOL) tablet 650 mg, Oral, q6h ?? CONTINUOUS MEDICATIONS: ?? PRN MEDICATIONS: ?? Or ?? Or ?? acetaminophen (TYLENOL) tablet 650 mg, Oral, q6h PRN ?? bisacodyl (DULCOLAX) suppository 10 mg, Rectal, QDAY PRN ?? bisacodyl EC (DULCOLAX) tablet 5 mg, Oral, QDAY PRN ?? calcium carbonate (TUMS) chew tablet 2 tablet, Oral, q4h PRN ?? diphenhydrAMINE (BENADRYL) capsule 25 mg, Oral, q6h PRN ?? HYDROcodone-acetaminophen (NORCO) 10-325 MG tablet 1 tablet, Oral, q4h PRN ?? HYDROcodone-acetaminophen (NORCO) 5-325 MG tablet 1 tablet, Oral, q4h PRN ?? magnesium hydroxide (MILK OF MAGNESIA) suspension 30 mL, Oral, QDAY PRN ?? naloxone (NARCAN) injection 0.4 mg, Intravenous, PRN ?? ondansetron (disintegrating) (ZOFRAN ODT) tablet 4 mg, Oral, q6h PRN ?? throat lozenge 1 lozenge, Oral, q2h PRN ?? zolpidem (AMBIEN) tablet 5 mg, Oral, AT BEDTIME PRN Labs Recent Labs Component Name 01/18/20 0307 01/17/20 0431 01/16/20 0421 SODIUM 140 140 137 POTASSIUM 4.0 3.9 3.7 CHLORIDE 101 99 99 CO2 28 30 31 BUN 58* 44* 23 CREATININE 7.47* 6.02* 3.89* GLUCOSE 121* 116* 110* Recent Labs Component Name 01/12/20 2308 12/10/19 1049 10/13/19 1215 05/27/19 1913 WBC - 4.0* 6.6 4.5 HGB 10.0* 11.2* 11.7* 8.5* HCT 32.1* 35.1* 37.3 28.2* PLTCOUNT - 156 187 215 Cardiographics Echo: pending ?? Assessment: ?? Paroxysmal atrial fibrillation, rate controlled. CHADS-VASc score is 4. ?? S/P total left hip arthroplasty. ?? Dementia. Denies falling ?? ESRD on HD ?? DM ?? HTN ?? Plan: ?? Echo pending ?? Continue diltiazem for rate control ?? If not a fall risk, recommend anticoagulation with Eliquis 2.5 mg bid. Mana Oliva MD, [facility] 01/18/2020 * Mike Flynn OT - 01/18/2020 7:40 AM CDT Attempted to see pt for OT follow-up; currently ARIANNE in dialysis. Will attempt to see pt at a later time/date. Mike Flynn OT x [phone] 01/18/2020 * Alma Fulton RN - 01/18/2020 7:29 AM CDT Comfortable night. Cooperative and calm with flat affect.Silver dressing in place left hip. Small old strike thrushadow stain.. Denied any pain. Voiding and moving well.Will have dialysis this morning.Tele monitor in place * Krsita Rojas, PT - 01/18/2020 7:11 AM CDT Attempted to see pt. Pt ARIANNE for dialysis. Will follow up at a later time Krista Rojas [phone] * Olivia Ford RN - 01/18/2020 5:30 AM CDT Reason for admission: L hip fx Isolation: no Code Status: Full Orientation Status: a&OX4 On telemetry/Rhythm:yes Oxygen:no Given any medications:none Blood Pressure issues:no On any drips:no Is patient diabetic:no Any labs to draw:no Any other procedures today:no Any concerns about this patient:no Any medications to be given with dialysis:no Report from:dianna Fulton RN Phone number:[phone] * Naveen Blackman MD - 01/17/2020 11:17 PM CDT Renal Progress Note Ferdinand Rasmussen [id number] Symptoms Patient denies fever, chills, chest pain, cough, sob, N/V, abdominal pain Vitals: 01/17/20 0810 01/17/20 1117 01/17/20 1527 01/17/201958 BP: 121/46 131/52 144/57 138/46 Pulse: 75 68 73 73 Resp: Temp: 98.5 ??F (36.9 ??C) 98.5 ??F (36.9 ??C) 98.5 ??F (36.9 ??C) 99.4 ??F (37.4 ??C) SpO2: 100% 100% 98% 96% Weight: Height: Temp (30hrs) Max:99.5 ??F (37.5 ??C) Intake/Output Summary (Last 24 hours) at 01/17/2020 2317 Last data filed at 01/17/20201999 Gross per 24 hour Intake 320 ml Output 600 ml Net -280 ml Filed Wts: 01/12/20 0853 Weight: 62.8 kg (138 lb 6.4 oz) . MEDICATIONS FOR CURRENT ENCOUNTER: SCHEDULED MEDICATIONS: allopurinol (ZYLOPRIM) tablet 100 mg, Oral, QDAY aspirin chew tablet 81 mg, Oral, BID WC atorvastatin (LIPITOR) tablet 20 mg, Oral, AT BEDTIME dilTIAZem coated beads 24hr (CARDIZEM CD) capsule 120 mg, Oral, QDAY docusate sodium (COLACE) capsule 100 mg, Oral, BID epoetin ashly-EPBX (RETACRIT) injection 4,000 Units, Subcutaneous, q7 days famotidine (PEPCID) tablet 20 mg, Oral, QDAY furosemide (LASIX) tablet 80 mg, Oral, BID lisinopril (PRINIVIL;ZESTRIL) tablet 5 mg, Oral, QDAY polyethylene glycol 3350 (MIRALAX) packet 17 g, Oral, QDAY rOPINIRole (REQUIP) tablet 0.5 mg, Oral, AT BEDTIME sevelamer carbonate (RENVELA) tablet 800 mg, Oral, TID WC sodium bicarbonate tablet 325 mg, Oral, QDAY tamsulosin (FLOMAX) capsule 0.4 mg, Oral, AT BEDTIME [COMPLETED] celecoxib (CeleBREX) capsule 100 mg, Oral, q12h ?? [] acetaminophen (TYLENOL) tablet 650 mg, Oral, q6h ?? CONTINUOUS MEDICATIONS: PRN MEDICATIONS: Or Or acetaminophen (TYLENOL) tablet 650 mg, Oral, q6h PRN bisacodyl (DULCOLAX) suppository 10 mg, Rectal, QDAY PRN bisacodyl EC (DULCOLAX) tablet 5 mg, Oral, QDAY PRN calcium carbonate (TUMS) chew tablet 2 tablet, Oral, q4h PRN diphenhydrAMINE (BENADRYL) capsule 25 mg, Oral, q6h PRN HYDROcodone-acetaminophen (NORCO) 10-325 MG tablet 1 tablet, Oral, q4h PRN HYDROcodone-acetaminophen (NORCO) 5-325 MG tablet 1 tablet, Oral, q4h PRN magnesium hydroxide (MILK OF MAGNESIA) suspension 30 mL, Oral, QDAY PRN naloxone (NARCAN) injection 0.4 mg, Intravenous, PRN ondansetron (disintegrating) (ZOFRAN ODT) tablet 4 mg, Oral, q6h PRN throat lozenge 1 lozenge, Oral, q2h PRN ?? zolpidem (AMBIEN) tablet 5 mg, Oral, AT BEDTIME PRN Exam General appearance: alert, cooperative, no distress Neck: supple Lungs: breath sounds normal and symmetric; no rales or wheezes Heart: regular rhythm, normal S1 and S2, without murmurs, gallops or rubs Abdomen: soft without mass, non-tender, with normal bowel sounds Extremities: no clubbing, cyanosis or edema ?? Results Recent Labs Component Name 01/17/20 0431 01/16/20 0421 01/15/20 0406 SODIUM 140 137 133* POTASSIUM 3.9 3.7 3.9 CHLORIDE 99 99 93* CO2 30 31 25 BUN 44* 23 46* CREATININE 6.02* 3.89* 7.38* GLUCOSE 116* 110* 112* CALCIUM 8.4 8.4 8.3* ALBUMIN 3.1* 3.1* 3.1* PHOS 3.6 2.9 6.0* No results for input(s): MAGMGDL in the last 14634 hours. Recent Labs Component Name 01/12/20 2308 12/10/19 1049 10/13/19 1215 05/27/19 1913 WBC - 4.0* 6.6 4.5 HGB 10.0* 11.2* 11.7* 8.5* HCT 32.1* 35.1* 37.3 28.2* PLTCOUNT - 156 187 215 No results for input(s): COLORUA, CHARACTERUA, SPECGRAVUA, PHUA, PROTEINUA, BLOODUA, LEUKOCYTEUA, NITRITEUA, GLUCOSEUA, KETONEUA, BILIRUBINUA, UROBILINUA, WBCUA, RBCUA, EPITHUA, MUCUSUA, CASTUA, CRYSTALUA, BACTERIAUA, YEASTUA, TRICHUA in the last 69603 hours. .chest X-ray ..us No results for input(s): PT in the last 35774 hours. No results for input(s): INR in the last 84846 hours. No results for input(s): BNP in the last 56759 hours. Recent Labs Component Name 01/12/20230712/10/19 1049 WBC - 4.0* RBC - 3.28* HGB 10.0* 11.2* HCT 32.1* 35.1* MCV - 107.0* MCH - 34.1* MCHC - 31.9 PLTCOUNT - 156 Assessment and Plan 1. ESRD/severe chronic kidney disease, on chronic dialysis. 2. Hypertension, BP stable 3. Chronic recurrent volume overload due to ESRD, compensated well on dialysis 4. Hyperkalemia due to ESRD, K stable 5. Anemia, probably related to his CKD, R/O loss causing anemia 6. S/p left hip arthroplasty Naveen Blackman Office [phone] * Roxana Gates RN - 01/17/2020 5:47 PM CDT Alert x4, flat affect. Strike through drainage on left hip silver dressing. A fib on telemetry. IV capped. HD tomorrow. Tunneled cath c/d/i. SBA and was up to chair this afternoon. [place] 5 for pain. * Dolores Alberts RN - 01/17/2020 3:00 PM CDT Ortho POD#5 Awake, alert Afebrile Cardiology consult today for a fib Incisional area- silver dressing intact Pain controlled VTE Prophylaxis: aspirin 81mg BID Progressing w/ PT Plan d/c home with [facility] once medically stable * Neli Das RN - 01/17/2020 1:50 PM CDT Case Management Progress Note Anticipated level of care at discharge: Home Health Care Discharge Plan: Patient is S/P left total hip arthroplasty. Plan is to discharge home with [facility] Therapy recommends acute rehab but patient is refusing, states he will go home and will be fine. Patient lives with his nephew in a second floor apartment with 2 flights of steps to enter. Patient was independent prior to admit. [facility] will provide transportation at discharge. Has a 2 Wheeled walker for home use. Agreeable to [facility] at discharge. Will continue to follow for dc needs. Patient declined offer to contact family/caregiver to discuss discharge plans. Please call [facility] at [phone] for transportation Basic Needs Assessment (BNA) Score: 10 Complex Needs Assessment (ACADEMIC COACH) Score: 5 Social Support Domain Score: 0 Medical Status and Health Trajectory Domain Score: 5 Medical Home and Access to Services Domain Score: 0 Anticipated Discharge Date: Anticipated Discharge Date: 01/18/20 Transportation at Discharge: Medicaid Provider Transportation to MD:Medicaid Provider Equipment at Home: Equipment At Home: Cane-Straight;Chair-Shower;Walker-2 Wheeled Additional DME needed: None Pharmacy benefit: Yes Name: Neli Das RN * Krista Rojas, PT - 01/17/2020 11:39 AM CDT Physical Therapy Treatment Summary Chart review completed. Nursing consented for PT. Explained purpose of PT and patient consented to participate in therapy. SUBJECTIVE: at first pt declined therapy then agreed to get to chair for lunch. After walking pt became a little agitated when PT asked to get him to the chair and requested to get back to bed. Patient's Goal for the Day: To walk per PT Pain Assessment: Pain Rating Score #: (no # given, a lot pt calm ) Pain Location : Hip Pain Orientation: Left OBJECTIVE: Orientation Level: Oriented X4 Precautions: fall Bed Mobility: Supine to Sit: Stand By Assist(HOB ~ 30 ) Sit to Supine: Minimal Assistance(for L LE ) Transfers: Sit to Stand: Stand By Assist;Requires Verbal Cues for Technique Stand to Sit: Stand By Assist;Requires Verbal Cues for Technique Mobility: Distance Ambulated: 110 FEET Ambulation: Assistive Device: Gait Belt;Walker-2 Wheeled Ambulation: Level of Assistance: Stand By Assist;Requires Verbal Cues for Technique;Requires VerbalCues for Safety Ambulation: Gait Deviations: Renetta - Decreased;Increased Trunk Flexion;Shuffling gait;Step Length- Decreased Weight Bearing Status-LLE: Weight Bearing as Tolerated Weight Bearing Status-RLE: Weight Bearing as Tolerated Balance: Sitting - Static: Good Sitting - Dynamic: Good - Standing - Static: Good -;With Both Upper Extremity's Support Standing - Dynamic: Fair +;With Both Upper Extremity's Support Activity Tolerance and O2 Requirements: Activity Tolerance: Requires rest breaks Exercise: Heel slide, ankle pumps and QS x10 INTERVENTION/ASSESSMENT: Pt tolerated treatment fair. Pt able to ambulate in the lim this session.Required v.c to kick leg out with sitting and standing and to take larger steps. Pt declined sitting up in chair. Pt NOT able to verbalize his hip precautions but able to point to the paper. NOT ableto maintain them with mobility. Mobility limited due to decreased cognition, inability to verbalizeor maintain hip precautions, weakness, fatigue, pain and decreased balance. Call light and phone in reach Pt left in bed per pt request with bed alarm activated. All lines, monitors, IV's, equipment in place and intact pre and post visit. RN, notified of patient's performance/location end of session. Educated patient/family in need for more therapy Pt educated in PT plan of care, fall precautions, and benefits of OOB activity. Please refer to the Filed Flowsheet for further details. Refer to Plan of Care for PT goals. RECOMMENDATIONS/PLAN: AM-PAC Basic mobility score for this patient is CMS 0-100% Score (Calculated): 50.57 % degree of impairment with higher scores indicating patient may benefit from further inpatient services. Patient will benefit from ACUTE REHAB at discharge to maximize independence and functional mobility. If this is the last Physical Therapy visit, this note serves as the discharge summary. Krista Rojas PT, DPT, CCS x [phone] * Laquita Llanos, ALTAGRACIA/TYLERN - 01/17/2020 11:25 AM CDT Nutrition Re-Assessment Comments: Pt follow up. Noted fair-good intake of meals and supplements from documentation. Pt remains on renal diet at this time. Nepro supplements ordered with all meals. Nepro (Renal Supplement)provides 425 calories ,19.1 grams protein per 8 oz serving. Will continue to send with all meals. ESRDon HD. Wound photos reviewed. Recommend assistance and encouragement at meals as indicated. Encourage supplement intake at meals when PO intake poor. Agree with current diet order, BODY ART TECHNICIAN evaluation as indicated by ability to chew/swallow. Will continue to monitor. Assessment: Med/Surg History and Clinical Diagnoses: s/p hip arthroplasty PMH: ESRD on HD Diet order accuracy Current diet order: Renal Standard Current supplement order: Nepro TID Nutrition recommendation: agree with current nutrition order(adjust consistency if indicated by chewing function) Food Allergies: No known food allergies P.O.Intake for the past 48 hrs:% Meal Taken Av.2 % Min: 25 % Max: 100 % P.O. Intake for supplement for the past 48 hours: Supplement Percentage Taken Av.3 % Min: 0 % Max: 100 % GI Concerns: None Chewing/Swallowing: Other (Comment)(chopped up food per RN) Pain affecting intake: No Admission weight: Weight: 138 lb 6.4 oz (62.8 kg) (01/12/20852) Filed Wts: 01/12/20852 Weight: 138 lb 6.4 oz (62.8 kg) WT Comments: reviewed -- no updated weight available Laboratory values reviewed. Recent Labs Component Name 01/17/20 0431 01/16/20 0421 01/15/20 0406 SODIUM 140 137 133* POTASSIUM 3.9 3.7 3.9 CHLORIDE 99 99 93* CO2 30 31 25 BUN 44* 23 46* CREATININE 6.02* 3.89* 7.38* GLUCOSE 116* 110* 112* CALCIUM 8.4 8.4 8.3* EGFR 9 15 7 EGFRAFR 11 18 9 Medications noted. Skin: Exceptions to WDL per nursing assess Estimated Energy Needs: KCAL: 1568 kcal(25 kcal/kg BW) Protein (g): 81 g(1.3 g/kg BW) Fluid (ml): 1 ml/kcal Recommended Access Route: PO Education needed: Supplements Education Provided: Yes Nutrition Care Process (1) Nutrition Diagnostic Statement: Increased nutrient needs related to:: renal dysfunction as evidenced by:: estimated protein needs .. Nutrition Intervention: Meals and snacks:;Medical Food Supplements: Recommendations: Continue with renal diet order (BODY ART TECHNICIAN evaluation if indicated by chewing/swallowing function) Nepro TID Monitoring: PO intake and tolerance Supplement intake and tolerance Weight and labs Skin assessment and bowel function Evaluation: Diagnostic Statement #1 Goals: Nutrition Goal: Total intake will meet estimated nutrient needs Nutrition Goal Timeframe: Throughout stay Nutrition Goal Progress: Continue with current goal * Laquita Llanos RD/LDN - 01/17/2020 11:25 AM CDT Problem: Nutrient: Increased nutrient needs (specify) Description: related to:: renal dysfunction Goal: Total intake will meet estimated nutrient needs Description: Ferdinand'nolvia Nutrition Goal: Total intake will meet estimated nutrient needs Nutrition GoalTimeframe: Throughout stay Outcome: Ongoing P.O.Intake for the past 48 hrs: % Meal Taken Av.2 % Min: 25 % Max: 100 % P.O. Intake for supplement for the past 48 hours: Supplement Percentage Taken Av.3 % Min: 0 % Max: 100 % * Mike Flynn OT - 01/17/2020 9:36 AM CDT Occupational Therapy Treatment Summary Chart reviewed for diagnosis and medical systems review. Nursing consented for OT. Explained purpose of OT and patient consented to participate in therapy. PPE worn by staff: gloves;goggles;mask - procedural Precautions: Fall, Post CARLOZ LLE SUBJECTIVE: Pt. Stated Call 911 - Pt. Able to verbalize what to do in even of a fire, although when asking about a gas leak, pt. Reports he wouldn't call anyone, just leave the home. Psychosocial: Patient Behaviors: Calm;Cooperative Pt's goal for therapy: Go home OBJECTIVE: Pain Assessment: Pain Rating Score #: 0 Pain Location : Hip Pain Orientation: Left Cognition: Orientation Level: Oriented X4 Level of Consciousness-Adult: Alert Cognition: Attention/concentration-decreased;Follows one step commands;Processing-delayed;Judgement-decreased;Safety awareness- decreased;Memory impairment-short term Functional Mobility: Bed Mobility: Supine to Sit: Stand By Assist Sit to Supine: Activity Does Not Occur(in chair at end) Transfers: Sit to Stand: Stand By Assist Stand to Sit: Stand By Assist Toilet Transfers: Minimal Assistance Balance: Sitting - Static: Good - Sitting - Dynamic: (Fair+) Standing - Static: Good -;With Both Upper Extremity's Support Standing - Dynamic: Fair +;With Both Upper Extremity's Support ADL Tasks: Feeding: Complete [place](anticipated) Oral Facial Hygiene: Stand By Assist;Requires Verbal Cues for Technique;Requires Verbal Cues for Safety(standing at sink) Bathing: Moderate Assistance Upper Body Dressing: Set-up(anticipated) Lower Body Dressing: Maximal Assistance(with AE) Toileting: Minimal Assistance;Requires Verbal Cues for Technique;Requires Verbal Cues for Safety Activity Tolerance/Vital Signs: Activity Tolerance: Requires rest breaks ASSESSMENT: Pt. Educated on FWW use, transfer techniques, safety strategies and purpose of OT. Pt. Unable to recall post CARLOZ precautions, even with request of immediate recall. Pt. Requires mod VC's for adhering to hip precautions as well as for attention, processing, sequencing, safety awareness and memory. Pt. Demos improved strength and balance this date. Pt. Educated on and provided with AE-although poor understanding of AE due to cognition and understanding of it's and the hip precautions'importance. Pt. Reports his nephew will be able to help him at night, but works during the day. Call light and phone in reach with chair alarm activated. All lines, monitors, IV's, equipment in place and intact pre and post visit. RN, notified of patient's performance/location end of session. Please refer to the Filed Flowsheet OT Treatment for further details. Refer to care plan for goals. RECOMMENDATIONS/PLAN: AM-PAC Basic Activity score for this patient is CMS 0-100% Score (Calculated): 50.11 % degree of impairment with higher scores indicating patient may benefit from further inpatient services. OT Discharge Recommendations: Inpatient Rehab Pt. Report he prefers to return home, however will not have 24/7 assist and supervision available, reporting his nephew works during the daytime. If this is the last Occupational Therapy visit, this serves as the discharge summary. Mike Flynn OT x [phone] * Kwame Berg MD - 01/17/2020 8:29 AM CDT Progress Note 01/17/2020 Patient Name: Ferdinand Rasmussen CSN: [id number] Date of : 1945 Admit Date: 01/12/2020 8:35 AM Hospital Days: Hospital Day: 5 Subjective: No acute complaints. Noted on monitor to have gone into atrial fibrillation Objective: Temp (30hrs) Max:99.5 ??F (37.5 ??C) BP 121/46 Pulse 75 Temp 98.5 ??F (36.9 ??C) (Oral) Resp 16 Ht 1.575 m (5' 2) Wt 62.8 kg(138 lb 6.4 oz) SpO2 100% BMI 25.31 kg/m?? Lung: Clear to auscultation, no rhonchi or crepitus Cardiovascular: Regular rate and rhythm with occasional extra-systole, normal S1S2 without murmur Abdomen: Soft, bowel sounds positive Labs: Recent Labs Component Name 01/12/20 2308 12/10/19 1049 WBC - 4.0* HGB 10.0* 11.2* HCT 32.1* 35.1* PLTCOUNT - 156 Recent Labs Component Name 01/17/20 0431 SODIUM 140 POTASSIUM 3.9 CHLORIDE 99 CO2 30 BUN 44* CREATININE 6.02* GLUCOSE 116* CALCIUM 8.4 Assessment: 1) ??S/p left hip arthroplasty 2) ??ESRD 3) ??Hypertension 4) ??Diabetes mellitus--diet controlled 5) Atrial fibrillation Plan: Dialysis per Dr. Blackman Change amlodipine to diltiazem Check ECHO Consult Dr. Mana Oliva (cardiology) to address wisdom or lack thereof for anticoagulation Disposition as per Dr. Agudelo * Jena Johnson RN - 01/17/2020 6:45 AM CDT Shift summary:patient denied pain. Repositioned in bed..patient had episode of atrial flutter last night and atrial fibrillation during the shift, was notified this morning,no new order received. * Jena Johnson RN - 01/17/2020 2:35 AM CDT Problem: Pain/Discomfort Goal: Patient exhibits reduced pain/discomfort as evidenced by pain scores Outcome: Ongoing Odale denied pain during assessment Problem: Incision Care Goal: Incision remains intact with edges well approximated Outcome: Ongoing Goal: Incision is free of infection. Outcome: Ongoing With antimicrobial silver dressing dry and intact Problem: Fall Risk Goal: Fall risk and fall related injury risk are minimized Outcome: Ongoing Bed alarm applied * Naveen Blackman MD - 01/16/2020 9:30 PM CDT Renal Progress Note Odale Long [id number] Symptoms Patient denies fever, chills, chest pain, cough, sob, N/V, abdominal pain Vitals: 01/16/20 0809 01/16/20 1138 01/16/20 1556 01/16/20 1936 BP: 145/44 142/54 138/60 143/56 Pulse: 80 80 71 81 Resp: 18 18 18 18 Temp: 98.9 ??F (37.2 ??C) 99.3 ??F (37.4 ??C) 99.2 ??F (37.3 ??C) 99.5 ??F (37.5 ??C) SpO2: 97% 97% 99% 99% Weight: Height: Temp (30hrs) Max:99.7 ??F (37.6 ??C) Intake/Output Summary (Last 24 hours) at 01/16/2020 2131 Last data filed at 01/16/2020 1754 Gross per 24 hour Intake 590 ml Output 850 ml Net -260 ml Filed Wts: 01/12/20 0853 Weight: 62.8 kg (138 lb 6.4 oz) . MEDICATIONS FOR CURRENT ENCOUNTER: SCHEDULED MEDICATIONS: acetaminophen (TYLENOL) tablet 650 mg, Oral, q6h allopurinol (ZYLOPRIM) tablet 100 mg, Oral, QDAY amLODIPine (NORVASC) tablet 5 mg, Oral, QDAY aspirin chew tablet 81 mg, Oral, BID WC atorvastatin (LIPITOR) tablet 20 mg, Oral, AT BEDTIME celecoxib (CeleBREX) capsule 100 mg, Oral, q12h docusate sodium (COLACE) capsule 100 mg, Oral, BID epoetin ashly-EPBX (RETACRIT) injection 4,000 Units, Subcutaneous, q7 days famotidine (PEPCID) tablet 20 mg, Oral, QDAY furosemide (LASIX) tablet 80 mg, Oral, BID lisinopril (PRINIVIL;ZESTRIL) tablet 5 mg, Oral, QDAY polyethylene glycol 3350 (MIRALAX) packet 17 g, Oral, QDAY rOPINIRole (REQUIP) tablet 0.5 mg, Oral, AT BEDTIME sevelamer carbonate (RENVELA) tablet 800 mg, Oral, TID WC sodium bicarbonate tablet 325 mg, Oral, QDAY ?? tamsulosin (FLOMAX) capsule 0.4 mg, Oral, AT BEDTIME ?? CONTINUOUS MEDICATIONS: PRN MEDICATIONS: Or Or acetaminophen (TYLENOL) tablet 650 mg, Oral, q6h PRN bisacodyl (DULCOLAX) suppository 10 mg, Rectal, QDAY PRN bisacodyl EC (DULCOLAX) tablet 5 mg, Oral, QDAY PRN calcium carbonate (TUMS) chew tablet 2 tablet, Oral, q4h PRN diphenhydrAMINE (BENADRYL) capsule 25 mg, Oral, q6h PRN HYDROcodone-acetaminophen (NORCO) 10-325 MG tablet 1 tablet, Oral, q4h PRN HYDROcodone-acetaminophen (NORCO) 5-325 MG tablet 1 tablet, Oral, q4h PRN magnesium hydroxide (MILK OF MAGNESIA) suspension 30 mL, Oral, QDAY PRN naloxone (NARCAN) injection 0.4 mg, Intravenous, PRN ondansetron (disintegrating) (ZOFRAN ODT) tablet 4 mg, Oral, q6h PRN throat lozenge 1 lozenge, Oral, q2h PRN ?? zolpidem (AMBIEN) tablet 5 mg, Oral, AT BEDTIME PRN Exam General appearance: alert, cooperative, no distress Neck: supple Lungs: breath sounds normal and symmetric; no rales or wheezes Heart: regular rhythm, normal S1 and S2, without murmurs, gallops or rubs Abdomen: soft without mass, non-tender, with normal bowel sounds Extremities: no clubbing, cyanosis or edema ?? Results Recent Labs Component Name 01/16/20 0421 01/15/20 0406 01/14/20 0507 SODIUM 137 133* 133* POTASSIUM 3.7 3.9 4.2 CHLORIDE 99 93* 94* CO2 31 25 28 BUN 23 46* 28* CREATININE 3.89* 7.38* 5.47* GLUCOSE 110* 112* 106* CALCIUM 8.4 8.3* 8.5 ALBUMIN 3.1* 3.1* 3.4 PHOS 2.9 6.0* 5.2* No results for input(s): MAGMGDL in the last 41455 hours. Recent Labs Component Name 01/12/20 2308 12/10/19 1049 10/13/19 1215 05/27/19 1913 WBC - 4.0* 6.6 4.5 HGB 10.0* 11.2* 11.7* 8.5* HCT 32.1* 35.1* 37.3 28.2* PLTCOUNT - 156 187 215 No results for input(s): COLORUA, CHARACTERUA, SPECGRAVUA, PHUA, PROTEINUA, BLOODUA, LEUKOCYTEUA, NITRITEUA, GLUCOSEUA, KETONEUA, BILIRUBINUA, UROBILINUA, WBCUA, RBCUA, EPITHUA, MUCUSUA, CASTUA, CRYSTALUA, BACTERIAUA, YEASTUA, TRICHUA in the last 79293 hours. .chest X-ray ..us No results for input(s): PT in the last 76983 hours. No results for input(s): INR in the last 37911 hours. No results for input(s): BNP in the last 55064 hours. Recent Labs Component Name 01/12/20 2308 12/10/19 1049 WBC - 4.0* RBC - 3.28* HGB 10.0* 11.2* HCT 32.1* 35.1* MCV - 107.0* MCH - 34.1* MCHC - 31.9 PLTCOUNT - 156 Assessment and Plan 1. ESRD/severe chronic kidney disease, requiring chronic dialysis. 2. Hypertension, part of it is due to volume 3. Chronic recurrent volume overload due to ESRD, compensated well on dialysis 4. Hyperkalemia due to ESRD 5. Anemia, probably related to his CKD, R/O loss causing anemia 6. S/p left hip arthroplasty Naveen Blackman Office [phone] * Tonie Muhammad RN - 01/16/2020 3:38 PM CDT Shift summary: Patient A&Ox3-4, delayed response. Tele in place. Refused Hip abd wedge, education given. Patient still refused. Right limb alert. Dialysis T/Susan/Sat. Wound on Sacral GIL, barrier cream applied, picture took. Turn q2h. Silver dressing on left hip, ice pack applied. OK to no IV access per Dr. Berg. Tele in place. Patient removed tunnel cath dressing one time at this shift. Bedin lowest position, call light and phone within reach. * Loree Griffin PT - 01/16/2020 3:36 PM CDT Physical Therapy Treatment Summary Chart review completed. Nursing consented for PT. Explained purpose of PT and patient consented to participate in therapy. PPE worn by staff: gloves(fabric face mask) POD 4# s/p L THR WBAT, Posterior THR prec SUBJECTIVE: No new complaints. Patient's Goal for the Day: therapy Pain Assessment: Pain Rating Score #: 0 Pain Location : Hip Pain Orientation: Left OBJECTIVE: Orientation Level: Oriented X4 Precautions: Fall, Posterior THR Prec, dementia Bed Mobility: Supine to Sit: Minimal Assistance Sit to Supine: Minimal Assistance Transfers: Sit to Stand: Minimal Assistance Stand to Sit: Minimal Assistance Mobility: Distance Ambulated: 110 FEET Ambulation: Assistive Device: Gait Belt;Walker-2 Wheeled Ambulation: Level of Assistance: Minimum Assistance Activity Tolerance and O2 Requirements: O2 DEVICE: Room Air - None ASSESSMENT: Call light and phone in reach All lines, monitors, IV's, equipment in place and intact pre and post visit. RN, notified of patient's performance/location end of session. Pt educated in PT plan of care, fall precautions, and benefits of OOB activity Please refer to the Filed Flowsheet for further details. Refer to Plan of Care for PT goals. RECOMMENDATIONS/PLAN: Continue emphasizing Posterior THR prec and ambulation with 2ww assisted AM-PAC Basic mobility score for this patient is CMS 0-100% Score (Calculated): 50.57% degree of impairment with higher scores indicating patient may benefit from further inpatient services. If this is the last Physical Therapy visit, this note serves as the discharge summary. Loree Griffin, PT x [phone] * Tonie Muhammad RN - 01/16/2020 12:04 PM CDT IV pulled per Dr. Berg. * Senthil Moran MD - 01/16/2020 11:29 AM CDT POD # 4 No complaints Don't see a PT note from yesterday Had experienced difficulty with hip precautions with PT on Friday, but seemed to be ambulating well Dialysis pt D/c planning---? Medical management * Kwame Berg MD - 01/16/2020 10:29 AM CDT Progress Note 01/16/2020 Patient Name: Ferdinand Rasmussen CSN: [id number] Date of : 1945 Admit Date: 01/12/2020 8:35 AM Hospital Days: Hospital Day: 4 Subjective: Denies complaint, per staff he has been pulling out saline lock Objective: Temp (30hrs) Max:99.7 ??F (37.6 ??C) BP 145/44 Pulse 80 Temp 98.9 ??F (37.2 ??C) (Oral) Resp 18 Ht 1.575 m (5' 2) Wt 62.8 kg (138 lb 6.4 oz) SpO2 97% BMI 25.31 kg/m?? Glucoses: 126 - 110 - 157 - 104 - 99 - 110 Lung: Clear to auscultation, no rhonchi or crepitus Cardiovascular: Regular rate and rhythm, normal S1S2 without murmur Abdomen: Soft, bowel sounds positive Labs: Recent Labs Component Name 01/12/20 2308 12/10/19 1049 WBC - 4.0* HGB 10.0* 11.2* HCT 32.1* 35.1* PLTCOUNT - 156 Recent Labs Component Name 01/16/20 0421 SODIUM 137 POTASSIUM 3.7 CHLORIDE 99 CO2 31 BUN 23 CREATININE 3.89* GLUCOSE 110* CALCIUM 8.4 Assessment: 1) ??S/p left hip arthroplasty 2) ??ESRD 3) ??Hypertension 4) ??Diabetes mellitus--controlled Plan: Dialysis per Dr. Blackman Avoid medical trauma to right upper extremity Disposition as per Dr. Agudelo OK for no saline lock as there is desire to conserve veins in patients with ESRD * Tonie Muhammad RN - 01/16/2020 8:30 AM CDT Images from the original note were not included. * Tonie Muhammad RN - 01/16/2020 7:19 AM CDT Problem: Pain/Discomfort Goal: Patient exhibits reduced pain/discomfort as evidenced by pain scores Outcome: Ongoing Problem: Incision Care Goal: Incision remains intact with edges well approximated Outcome: Ongoing Goal: Incision is free of infection. Outcome: Ongoing Problem: Fall Risk Goal: Fall risk and fall related injury risk are minimized Outcome: Ongoing Problem: Hemodynamic Status/Cardiac Output Goal: Patient has stable vital signs and fluid balance Outcome: Ongoing Problem: Fluid and Electrolyte Imbalance Goal: Fluid and electrolyte balance are achieved/maintained Outcome: Ongoing Problem: Infection Goal: Signs and symptoms of infections are decreased or avoided Outcome: Ongoing Problem: Nutrient: Increased nutrient needs (specify) Description: related to:: renal dysfunction Goal: Total intake will meet estimated nutrient needs Description: Ferdinand's Nutrition Goal: Total intake will meet estimated nutrient needs Nutrition GoalTimeframe: Throughout stay Outcome: Ongoing * Neli Escamilla RN - 01/16/2020 6:33 AM CDT Pt recieved in stable condition A&O3, per patient normal Pt refusing hip abd wedge, states Its too uncomfortable education given to pt- continues to refuse Pulled out IV-- new one placed Dialysis acces to right upper chest- pt pulled at and took the dressing off- noted was the sutures no longer in place. New dressing applied. Pt advised to quit pulling on things. Bed alarm on for pt safety Refused 0000 and 0600 scheduled Tylenol Currently no needs Will continue to monitor * Neli Escamilla RN - 01/16/2020 5:13 AM CDT Pt will report a decreased pain level as evidence by pain scores Problem: Pain/Discomfort Goal: Patient exhibits reduced pain/discomfort as evidenced by pain scores Outcome: Ongoing * Tonie Muhammad RN - 01/15/2020 6:20 PM CDT Patient just came back from dialysis, eating at this time. No fluid remove. * Tonie Muhammad RN - 01/15/2020 3:23 PM CDT Shift summary: Patient A&Ox3-4, delayed response. Tele in place. Hip abd wedge in place. BG monitor. Right limb alert. Dialysis T/Susan/Sat, at dialysis at this time. BP soft, doctor aware of. Wound on Sacral MINE FOREMAN, barrier cream applied. Turn q2h. Silver dressing on left hip, ice pack applied. Bedin lowest position, call light and phone within reach. * Naveen Blackman MD - 01/15/2020 2:50 PM CDT Renal Progress Note Ferdinand Rasmussen [id number] Symptoms Patient denies fever, chills, chest pain, cough, sob, N/V, abdominal pain Vitals: 01/15/20 1255 01/15/20 1308 01/15/20 1315 01/15/20 1330 BP: 106/43 111/50 124/52 123/53 Pulse: 71 74 75 73 Resp: 16 16 16 Temp: 99 ??F (37.2 ??C) SpO2: 98% Weight: Height: Temp (30hrs) Max:99.2 ??F (37.3 ??C) Intake/Output Summary (Last 24 hours) at 01/15/2020 1451 Last data filed at 01/15/2020 1307 Gross per 24 hour Intake 420 ml Output -- Net 420 ml Filed Wts: 01/12/20 0853 Weight: 62.8 kg (138 lb 6.4 oz) . MEDICATIONS FOR CURRENT ENCOUNTER: SCHEDULED MEDICATIONS: acetaminophen (TYLENOL) tablet 650 mg, Oral, q6h allopurinol (ZYLOPRIM) tablet 100 mg, Oral, QDAY amLODIPine (NORVASC) tablet 5 mg, Oral, QDAY aspirin chew tablet 81 mg, Oral, BID WC atorvastatin (LIPITOR) tablet 20 mg, Oral, AT BEDTIME celecoxib (CeleBREX) capsule 100 mg, Oral, q12h docusate sodium (COLACE) capsule 100 mg, Oral, BID epoetin ashly-EPBX (RETACRIT) injection 4,000 Units, Subcutaneous, q7 days famotidine (PEPCID) tablet 20 mg, Oral, QDAY furosemide (LASIX) tablet 80 mg, Oral, BID lisinopril (PRINIVIL;ZESTRIL) tablet 5 mg, Oral, QDAY polyethylene glycol 3350 (MIRALAX) packet 17 g, Oral, QDAY rOPINIRole (REQUIP) tablet 0.5 mg, Oral, AT BEDTIME sevelamer carbonate (RENVELA) tablet 800 mg, Oral, TID WC sodium bicarbonate tablet 325 mg, Oral, QDAY ?? tamsulosin (FLOMAX) capsule 0.4 mg, Oral, AT BEDTIME ?? CONTINUOUS MEDICATIONS: PRN MEDICATIONS: Or Or Or acetaminophen (TYLENOL) tablet 650 mg, Oral, q6h PRN bisacodyl (DULCOLAX) suppository 10 mg, Rectal, QDAY PRN bisacodyl EC (DULCOLAX) tablet 5 mg, Oral, QDAY PRN calcium carbonate (TUMS) chew tablet 2 tablet, Oral, q4h PRN diphenhydrAMINE (BENADRYL) capsule 25 mg, Oral, q6h PRN HYDROcodone-acetaminophen (NORCO) 10-325 MG tablet 1 tablet, Oral, q4h PRN HYDROcodone-acetaminophen (NORCO) 5-325 MG tablet 1 tablet, Oral, q4h PRN HYDROmorphone (DILAUDID) injection 1 mg, Subcutaneous, q3h PRN HYDROmorphone (DILAUDID) injection 2 mg, Subcutaneous, q3h PRN magnesium hydroxide (MILK OF MAGNESIA) suspension 30 mL, Oral, QDAY PRN metoclopramide (REGLAN) injection 5 mg, Intramuscular, q6h PRN metoclopramide (REGLAN) injection 5 mg, Intravenous, q6h PRN naloxone (NARCAN) injection 0.4 mg, Intravenous, PRN ondansetron (disintegrating) (ZOFRAN ODT) tablet 4 mg, Oral, q6h PRN ondansetron (ZOFRAN) injection 4 mg, Intravenous, q6h PRN throat lozenge 1 lozenge, Oral, q2h PRN ?? zolpidem (AMBIEN) tablet 5 mg, Oral, AT BEDTIME PRN Exam General appearance: alert, cooperative, no distress Neck: supple Lungs: breath sounds normal and symmetric; no rales or wheezes Heart: regular rhythm, normal S1 and S2, without murmurs, gallops or rubs Abdomen: soft without mass, non-tender, with normal bowel sounds Extremities: no clubbing, cyanosis or edema ?? Results Recent Labs Component Name 01/15/20 0406 01/14/20 0507 01/13/20 2158 01/13/20 0240 SODIUM 133* 133* - 137 POTASSIUM 3.9 4.2 4.2 6.1* CHLORIDE 93* 94* - 100 CO2 25 28 - 25 BUN 46* 28* - 56* CREATININE 7.38* 5.47* - 8.37* GLUCOSE 112* 106* - 124* CALCIUM 8.3* 8.5 - 8.8 ALBUMIN 3.1* 3.4 - 3.9 PHOS 6.0* 5.2* - 5.4* No results for input(s): MAGMGDL in the last 76371 hours. Recent Labs Component Name 01/12/20 2308 12/10/19 1049 10/13/19 1215 05/27/19 1913 WBC - 4.0* 6.6 4.5 HGB 10.0* 11.2* 11.7* 8.5* HCT 32.1* 35.1* 37.3 28.2* PLTCOUNT - 156 187 215 No results for input(s): COLORUA, CHARACTERUA, SPECGRAVUA, PHUA, PROTEINUA, BLOODUA, LEUKOCYTEUA, NITRITEUA, GLUCOSEUA, KETONEUA, BILIRUBINUA, UROBILINUA, WBCUA, RBCUA, EPITHUA, MUCUSUA, CASTUA, CRYSTALUA, BACTERIAUA, YEASTUA, TRICHUA in the last 02296 hours. .chest X-ray ..us No results for input(s): PT in the last 48830 hours. No results for input(s): INR in the last 56164 hours. No results for input(s): BNP in the last 95063 hours. Recent Labs Component Name 01/12/20 2308 12/10/19 1049 WBC - 4.0* RBC - 3.28* HGB 10.0* 11.2* HCT 32.1* 35.1* MCV - 107.0* MCH - 34.1* MCHC - 31.9 PLTCOUNT - 156 Assessment and Plan 1. ESRD/severe chronic kidney disease, requiring chronic dialysis. 2. Hypertension, part of it is due to volume 3. Chronic recurrent volume overload due to ESRD, compensated well on dialysis 4. Hyperkalemia due to ESRD 5. Anemia, probably related to his CKD, R/O loss causing anemia 6. S/p left hip arthroplasty Naveen Yehuda Office [phone] * Abigail Thomas RN - 01/15/2020 11:52 AM CDT REPORT BEFORE DIALYSIS Reason for admission: Left hip ortho plasty Isolation: no Code Status: full Orientation Status: x4 slow processing slurred speech On telemetry/Rhythm: afib Oxygen: room air GIven any medications: na Need for pain medications: tylenol Blood pressure issues: soft On any drips: na Is patient diabetic: yes last sugar 99 Any labs to draw: na Any other procedures today: no Any concerns about this patient: soft bp this am Any medications to be given with dialysis: . Report from: Tyshawn Muhammad RN Phone number: [phone] * Kwame Berg MD - 01/15/2020 9:27 AM CDT Progress Note 01/15/2020 Patient Name: Ferdinand Rasmussen CSN: [id number] Date of : 1945 Admit Date: 01/12/2020 8:35 AM Hospital Days: Hospital Day: 3 Subjective: Denies nausea or vomiting, complains of pain in the hip Objective: Temp (30hrs) Max:99.2 ??F (37.3 ??C) BP 116/42 Pulse 73 Temp 98.4 ??F (36.9 ??C) (Oral) Resp 18 Ht 1.575 m (5' 2) Wt 62.8 kg (138 lb 6.4 oz) SpO2 98% BMI 25.31 kg/m?? Glucoses: 138 - 126 - 110 - 157 Lung: Clear to auscultation, no rhonchi or crepitus Cardiovascular: Regular rate and rhythm, normal S1S2 without murmur Abdomen: Soft, bowel sounds positive Labs: Recent Labs Component Name 01/12/20 2308 12/10/19 1049 WBC - 4.0* HGB 10.0* 11.2* HCT 32.1* 35.1* PLTCOUNT - 156 Recent Labs Component Name 01/15/20 0406 SODIUM 133* POTASSIUM 3.9 CHLORIDE 93* CO2 25 BUN 46* CREATININE 7.38* GLUCOSE 112* CALCIUM 8.3* Assessment: 1) ??S/p left hip arthroplasty 2) ??ESRD 3) ??Hypertension--BP has actually been running on the low side 4) ??Diabetes mellitus--controlled Plan: Dialysis per Dr. Blackman Avoid medical trauma to right upper extremity Disposition as per Dr. Agudelo * Tonie Muhammad RN - 01/15/2020 7:42 AM CDT Problem: Pain/Discomfort Goal: Patient exhibits reduced pain/discomfort as evidenced by pain scores Outcome: Ongoing Problem: Incision Care Goal: Incision remains intact with edges well approximated Outcome: Ongoing Goal: Incision is free of infection. Outcome: Ongoing Problem: Fall Risk Goal: Fall risk and fall related injury risk are minimized Outcome: Ongoing Problem: Hemodynamic Status/Cardiac Output Goal: Patient has stable vital signs and fluid balance Outcome: Ongoing Problem: Fluid and Electrolyte Imbalance Goal: Fluid and electrolyte balance are achieved/maintained Outcome: Ongoing Problem: Infection Goal: Signs and symptoms of infections are decreased or avoided Outcome: Ongoing Problem: Nutrient: Increased nutrient needs (specify) Description: related to:: renal dysfunction Goal: Total intake will meet estimated nutrient needs Description: Ferdinand'nolvia Nutrition Goal: Total intake will meet estimated nutrient needs Nutrition GoalTimeframe: Throughout stay Outcome: Ongoing * Neli Escamilla RN - 01/15/2020 6:49 AM CDT Pt received in stable condition A&Ox 3- delayed response IV saline locked- flushes without difficulty Protection pad on sacral area No needs this time Will continue to monitor * Vero Laurent RN - 01/14/2020 7:17 PM CDT A/O X 2-3; disoriented to situation and at times location. VSS Dsg cdi Pt is anuric. Protection pads on coccyx and nancy heels. IV saline locked. Hemodialysis cath is capped. Pt remains on telemetry in SR ST. Goes into ST when he gets up to BR or walking in the lim. * Vero Laurent RN - 01/14/2020 7:16 PM CDT Problem: Pain/Discomfort Goal: Patient exhibits reduced pain/discomfort as evidenced by pain scores Outcome: Ongoing Note: Pt understands pain scoring concept and is able to verbalize pain level appropriately; utilizes non pharmacological pain mgmt strategies such as rest. Problem: Fall Risk Goal: Fall risk and fall related injury risk are minimized Outcome: Ongoing Flowsheets (Taken 01/14/2020 0999) Cassidy Florence Fall Risk Total: 12 [place] Fall Risk Precaution Interventions: Call light/belongings in reach Bed in low position and locked Wheelchairs and chairs locked SR upx2 Ensure adequate lighting Clutter free and spill free environment Educate to the purpose of universal fall precautions Educate to call for assistance Keep closet and bathroom doors closed when not in use Use of appropriate footwear (see row information) Note: Pt will be free of falls and injuries. * Rachael Burch RN - 01/14/2020 1:54 PM CDT Case Management Progress Note Anticipated level of care at discharge: Home Health Care Discharge Plan: Met with patient at the bedside. S/P left total hip arthroplasty. Plan is to discharge home with [facility] Therapy recommends acute rehab but patient is refusing, states he will go home and will be fine. Patient lives with his nephew in a second floor apartment with 2 flights of steps toenter. Patient was independent prior to admit. [facility] will provide transportation at discharge. Has a 2 Wheeled walker for home use. Agreeable to [facility] at discharge. Will continue to follow for dc needs. Patient declined offer to contact family/caregiver to discuss discharge plans. Please call [facility] at [phone] for transportation Basic Needs Assessment (BNA) Score: 10 Complex Needs Assessment (ACADEMIC COACH) Score: 5 Social Support Domain Score: 0 Medical Status and Health Trajectory Domain Score: 5 Medical Home and Access to Services Domain Score: 0 Anticipated Discharge Date: Anticipated Discharge Date: 01/10/20 Transportation at Discharge: Medicaid Provider Transportation to MD:Medicaid Provider Equipment at Home: Equipment At Home: Cane-Straight;Chair-Shower;Walker-2 Wheeled Additional DME needed: Pharmacy benefit: Yes Name: Rachael Burch RN * Shahnaz Allen, PT - 01/14/2020 1:08 PM CDT Physical Therapy Treatment Summary Patient was seen BID this date for physical therapy. Pt consented to treatment. Subjective: Denies left hip pain. Agreeable to ambulation. Objective: Reviewed posterior CARLOZ precautions with patient. (Patient required frequent reminders during treatment session to maintain posterior CARLOZ precautions.) Transfers: Supine to/from sit with min assistance Sit to/from stand with min assistance Ambulation: Patient ambulated 105 feet with wh walker and min assistance Encouraged frequent ankle pumps. Hip abd wedge in place following treatment. Patient remained in reach of call light. Applied ice pack post-treatment. Assessment/Plan: Tolerated treatment well. Steady progress with PT. Continue BID PT while hospitalized. Shahnaz Allen, PT 01/14/2020 * Naveen Blackman MD - 01/14/2020 12:18 PM CDT Renal Progress Note Ferdinand Rasmussen [id number] Symptoms Patient denies fever, chills, chest pain, cough, sob, N/V, abdominal pain Vitals: 01/14/20 0733 01/14/20 1013 01/14/20 1100 01/14/20 1115 BP: 134/47 131/60 125/55 118/67 Pulse: 90 (!) 112 92 78 Resp: 17 18 Temp: 98.3 ??F (36.8 ??C) 99.2 ??F (37.3 ??C) SpO2: 96% 99% 97% 98% Weight: Height: Temp (30hrs) Max:99.9 ??F (37.7 ??C) Intake/Output Summary (Last 24 hours) at 01/14/2020 1219 Last data filed at 01/14/2020 0906 Gross per 24 hour Intake 50 ml Output 1630 ml Net -1580 ml Filed Wts: 01/12/20 0853 Weight: 62.8 kg (138 lb 6.4 oz) . MEDICATIONS FOR CURRENT ENCOUNTER: SCHEDULED MEDICATIONS: acetaminophen (TYLENOL) tablet 650 mg, Oral, q6h allopurinol (ZYLOPRIM) tablet 100 mg, Oral, QDAY amLODIPine (NORVASC) tablet 5 mg, Oral, QDAY aspirin chew tablet 81 mg, Oral, BID WC atorvastatin (LIPITOR) tablet 20 mg, Oral, AT BEDTIME celecoxib (CeleBREX) capsule 100 mg, Oral, q12h docusate sodium (COLACE) capsule 100 mg, Oral, BID epoetin ashly-EPBX (RETACRIT) injection 4,000 Units, Subcutaneous, q7 days furosemide (LASIX) tablet 80 mg, Oral, BID lisinopril (PRINIVIL;ZESTRIL) tablet 5 mg, Oral, QDAY polyethylene glycol 3350 (MIRALAX) packet 17 g, Oral, QDAY rOPINIRole (REQUIP) tablet 0.5 mg, Oral, AT BEDTIME sevelamer carbonate (RENVELA) tablet 800 mg, Oral, TID WC sodium bicarbonate tablet 325 mg, Oral, QDAY tamsulosin (FLOMAX) capsule 0.4 mg, Oral, AT BEDTIME ?? [START ON 01/15/2020] famotidine (PEPCID) tablet 20 mg, Oral, QDAY ?? CONTINUOUS MEDICATIONS: PRN MEDICATIONS: Or Or Or acetaminophen (TYLENOL) tablet 650 mg, Oral, q6h PRN bisacodyl (DULCOLAX) suppository 10 mg, Rectal, QDAY PRN bisacodyl EC (DULCOLAX) tablet 5 mg, Oral, QDAY PRN calcium carbonate (TUMS) chew tablet 2 tablet, Oral, q4h PRN diphenhydrAMINE (BENADRYL) capsule 25 mg, Oral, q6h PRN HYDROcodone-acetaminophen (NORCO) 10-325 MG tablet 1 tablet, Oral, q4h PRN HYDROcodone-acetaminophen (NORCO) 5-325 MG tablet 1 tablet, Oral, q4h PRN HYDROmorphone (DILAUDID) injection 1 mg, Subcutaneous, q3h PRN HYDROmorphone (DILAUDID) injection 2 mg, Subcutaneous, q3h PRN magnesium hydroxide (MILK OF MAGNESIA) suspension 30 mL, Oral, QDAY PRN metoclopramide (REGLAN) injection 5 mg, Intramuscular, q6h PRN metoclopramide (REGLAN) injection 5 mg, Intravenous, q6h PRN naloxone (NARCAN) injection 0.4 mg, Intravenous, PRN ondansetron (disintegrating) (ZOFRAN ODT) tablet 4 mg, Oral, q6h PRN ondansetron (ZOFRAN) injection 4 mg, Intravenous, q6h PRN throat lozenge 1 lozenge, Oral, q2h PRN ?? zolpidem (AMBIEN) tablet 5 mg, Oral, AT BEDTIME PRN Exam General appearance: alert, cooperative, no distress Neck: supple Lungs: breath sounds normal and symmetric; no rales or wheezes Heart: regular rhythm, normal S1 and S2, without murmurs, gallops or rubs Abdomen: soft without mass, non-tender, with normal bowel sounds Extremities: no clubbing, cyanosis or edema ?? Results Recent Labs Component Name 01/14/20 0507 01/13/20 2158 01/13/20 0240 01/12/20 2308 12/27/19 0734 05/26/19 0803 SODIUM 133* - 137 140 - 140 - 140 POTASSIUM 4.2 4.2 6.1* 6.3* - 6.3* - 4.0 CHLORIDE 94* - 100 102 - 98 - 100 CO2 28 - 25 26 - 29 - 29 BUN 28* - 56* 55* - 47* - 15 CREATININE 5.47* - 8.37* 8.28* - 7.69* - 3.48* GLUCOSE 106* - 124* 127* - 88 - 83 CALCIUM 8.5 - 8.8 8.8 - 9.7 - 8.5 ALBUMIN 3.4 - 3.9 - - 4.4 - 3.8 PHOS 5.2* - 5.4* - - - - 3.0 - = values in this interval not displayed. No results for input(s): MAGMGDL in the last 41370 hours. Recent Labs Component Name 01/12/20230712/10/19 1049 10/13/19 1215 05/27/19 1913 WBC - 4.0* 6.6 4.5 HGB 10.0* 11.2* 11.7* 8.5* HCT 32.1* 35.1* 37.3 28.2* PLTCOUNT - 156 187 215 No results for input(s): COLORUA, CHARACTERUA, SPECGRAVUA, PHUA, PROTEINUA, BLOODUA, LEUKOCYTEUA, NITRITEUA, GLUCOSEUA, KETONEUA, BILIRUBINUA, UROBILINUA, WBCUA, RBCUA, EPITHUA, MUCUSUA, CASTUA, CRYSTALUA, BACTERIAUA, YEASTUA, TRICHUA in the last 67439 hours. .chest X-ray ..us No results for input(s): PT in the last 74792 hours. No results for input(s): INR in the last 56086 hours. No results for input(s): BNP in the last 12046 hours. Recent Labs Component Name 01/12/2012/09/20 1049 WBC - 4.0* RBC - 3.28* HGB 10.0* 11.2* HCT 32.1* 35.1* MCV - 107.0* MCH - 34.1* MCHC - 31.9 PLTCOUNT - 156 Assessment and Plan 1. ESRD/severe chronic kidney disease, requiring chronic dialysis. 2. Hypertension, part of it is due to volume 3. Chronic recurrent volume overload due to ESRD, compensated well on dialysis 4. Hyperkalemia due to ESRD 5. Anemia, probably related to his CKD, R/O loss causing anemia 6. S/p left hip arthroplasty Naveen Blackman Office [phone] * Shahnaz Allen, PT - 01/14/2020 11:03 AM CDT Physical Therapy Treatment Summary Chart review completed. Nursing consented for PT. Explained purpose of PT and patient consented to participate in therapy. PPE worn by staff: eye protection;gloves;mask - surgical PPE worn by patient: gown - patient, clean;mask - surgical;socks - clean SUBJECTIVE: I feel alright. Denies pain. States he wants to go home after discharge. (He lives with his nephew, but his nephew works during the day.) Patient's Goal for the Day: None stated. Pain Assessment: Pain Rating Score #: 0(denies left hip pain) OBJECTIVE: Orientation Level: Oriented X4 Precautions: Left posterior CARLOZ precautions. Fall precautions. Bed Mobility: Sit to Supine: Moderate Assistance Transfers: Sit to Stand: Minimal Assistance;Requires Verbal Cues for Safety;Requires Verbal Cues for Technique Stand to Sit: Minimal Assistance;Requires Verbal Cues for Safety;Requires Verbal Cues for Technique Mobility: Distance Ambulated: 100 FEET Ambulation: Assistive Device: Gait Belt;Walker-2 Wheeled Ambulation: Level of Assistance: Minimum Assistance;Requires Verbal Cues for Safety;Requires VerbalCues for Technique Ambulation: Gait Deviations: Base of Support - Decreased;Renetta - Decreased;Heel Strike - Decreased;Push Off - Decreased;Shuffling gait;Step Length - Decreased Balance: Sitting - Static: Good Sitting - Dynamic: Good - Standing - Static: Fair +;With Both Upper Extremity's Support Standing - Dynamic: Fair;With Both Upper Extremity's Support Activity Tolerance and O2 Requirements: O2 DEVICE: Room Air - None Vital Signs: SpO2: 97 % Pulse: 92 BP: 125/55 Exercise: 10 reps bilat ankle pumps and quad/glut sets Reviewed posterior CARLOZ precautions - written and verbal instructions provided. ASSESSMENT: Steady progress with PT. Tolerated treatment well. Call light and phone in reach. Hip abd wedge in place following treatment. RN, Mojgan, notified of patient's performance/location end of session. Pt educated in PT plan of care, fall precautions, and benefits of OOB activity. PT Tara Sanchez, present to assist throughout the session. Please refer to the Filed Flowsheet for further details. Refer to Plan of Care for PT goals. RECOMMENDATIONS/PLAN: Recommend acute rehab after discharge. AM-PAC Basic mobility score for this patient is CMS 0-100% Score (Calculated): 50.57% degree of impairment with higher scores indicating patient may benefit from further inpatient services. If this is the last Physical Therapy visit, this note serves as the discharge summary. Shahnaz Allen, PT x [phone] * Paz Ponce RN - 01/14/2020 10:50 AM CDT Ortho POD # 2 from [facility] Awake, Alert Afebrile Up in chair Dialysis patient- normal schedule- //Fri- Dr Blackman following patient VTE Prophylaxis: ASA BID Nausea/ Vomiting: none Incisional Area- drain pulled today- dressing present- no drainage- silver dressing in place No calf pain, wiggles toes Pain controlled Con't PT- WBAT- posterior hip precautions Plan: therapy is recommending inpatient rehab. Spoke to patient. Currently hesitant regarding goingto rehab, wants to go home. States he has a nephew (lives with him) and a lady friend whom help himdaily. Will need case liner to help with discharge planning * Leila Martinez - 01/14/2020 10:23 AM CDT Occupational Therapy Treatment Summary Chart reviewed for diagnosis and medical systems review. Nursing consented for OT. . Explained purpose of OT and patient consented to participate in therapy. PPE worn by staff: eye protection;gloves;mask - surgical Precautions: Post. CARLOZ L LE; Fall Patient participated in education/review of precautions/restrictions this session. SUBJECTIVE: Pt. stated I feel fine. Pt. agreeable to work with therapy, offers limited speech to direct questions. Psychosocial: Patient Behaviors: Calm;Cooperative;Flat Affect, limited speech Patient's goal for the day: Sit in the chair OBJECTIVE: Cognition: Cognition: Follows one step commands;Processing-delayed;Judgement-decreased;Safety awareness-decreas ed;Attention/concentration-decreased Pain Assessment: Pain Rating Score #: (unrated pain in hip initially upon standing) Pain Location : Hip Pain Orientation: Left Functional Mobility: Bed Mobility: Supine to Sit: Moderate Assistance;Requires Verbal Cues for Safety;Requires Verbal Cues for Technique Sit to Supine: Activity Does Not Occur(Pt in chair end of session) Transfers: Sit to Stand: Minimal Assistance;Requires Verbal Cues for Safety;Requires Verbal Cues for Technique;Requires Physical Cues for Safety;Requires Physical Cues for Technique Stand to Sit: Minimal Assistance;Requires Verbal Cues for Technique;Requires Verbal Cues for Safety;Requires Physical Cues for Safety;Requires Physical Cues for Technique Toilet Transfers: Minimal Assistance;Requires Verbal Cues for Safety;Requires Verbal Cues for Technique;Requires Physical Cues for Safety;Requires Physical Cues for Technique Balance: Sitting - Static: Fair +;With Both Upper Extremity's Support Sitting - Dynamic: Not tested Standing - Static: Fair +;With Both Upper Extremity's Support Standing - Dynamic: Fair +;With Both Upper Extremity's Support ADL Tasks: Feeding: Set-up(anticipated) Oral Facial Hygiene: Stand By Assist(anticipated seated) Bathing: Moderate Assistance(anticipated) Upper Body Dressing: Minimal Assistance(anticipated seated) Lower Body Dressing: Total Assistance Toileting: Requires Physical Cues for Safety;Requires Verbal Cues for Safety;Requires Verbal Cues for Technique;Requires Physical Cues for Technique;Moderate Assistance(in bathroom) Activity Tolerance/Vital Signs: Activity Tolerance: Requires rest breaks;Complains of shortness of breath after standing activity/gait SpO2: 99 (max activity) Pulse: 112 (max activity) BP: 131/60 sitting EOB ASSESSMENT: Pt. educated on safety strategies, transfer techniques, post. CARLOZ precautions, FWW use,and purpose of OT. Pt. recalls 0/3 CARLOZ precautions, requiring education and max VC to adhere to precautions throughout ADLs, functional tasks and transfers. Additional max simple 1 step VC required for sequencing, processing, FWW use, safety and technique throughout session. Pt. c/o light-headedness upon initial standing, residing after sitting again for 2 minutes., BP stable (see value above). Pt. fatigues quickly, requiring rest breaks, SpO2> 90% throughout session. Pt. demos improvement from previous session, however requires increased assist from reported PLOF and will benefit from continued therapeutic intervention to return to maximum independence. Call light and phone in reach with chair alarm activated. All lines, monitors, IV's, equipment in place and intact pre and post visit. RN, Mojgan, notified of patient's performance/location end of session. Please refer to the Filed Flowsheet OT Treatment for further details. Refer to care plan for goals. RECOMMENDATIONS/PLAN: AM-PAC Basic Activity score for this patient is CMS 0-100% Score (Calculated): 59.67 % degree of impairment with higher scores indicating patient may benefit from further inpatient services. OT Discharge Recommendations: Inpatient Rehab If this is the last Occupational Therapy visit, this serves as the discharge summary. Leila Michelle x [phone] * Katya Jimenez, PharmD - 01/14/2020 9:24 AM CDT [facility] Pharmacy Services [facility] Renal Dose Adjustment Policy Ferdinand Rasmussen male, is 74 year old Wt 62.8 kg (138 lb 6.4 oz) Body mass index is 25.31 kg/m??. Labs Recent Labs Component Name 01/14/20 0507 01/13/20 0240 01/12/20 2308 CREATININE 5.47* 8.37* 8.28* BUN 28* 56* 55* Estimated Creatinine Clearance: 9 mL/min (A) (based on SCr of 5.47 mg/dL (H)). (using Cockcroft-Gault formula) Assessment/Plan Famotidine (Pepcid) - Creatinine clearance less than 50ml/min, will reduce dosage to 50% of normal and begin famotidine 20mg daily Katya Jimenez, PharmD. 01/14/2020 9:24 AM * Kwame Berg MD - 01/14/2020 8:02 AM CDT Progress Note 01/14/2020 Patient Name: Ferdinand Rasmussen CSN: [id number] Date of : 1945 Admit Date: 01/12/2020 8:35 AM Hospital Days: Hospital Day: 2 Subjective: Denies nausea, vomiting or shortness of breath Objective: Temp (30hrs) Max:99.9 ??F (37.7 ??C) BP 134/47 Pulse 90 Temp 98.3 ??F (36.8 ??C) (Oral) Resp 17 Ht 1.575 m (5' 2) Wt 62.8 kg (138 lb 6.4 oz) SpO2 96% BMI 25.31 kg/m?? Lung: Clear to auscultation, no rhonchi or crepitus Cardiovascular: Regular rate and rhythm, normal S1S2 without murmur Abdomen: Soft, bowel sounds positive Labs: Recent Labs Component Name 01/12/20 2308 12/10/19 1049 WBC - 4.0* HGB 10.0* 11.2* HCT 32.1* 35.1* PLTCOUNT - 156 Recent Labs Component Name 01/14/20 0507 SODIUM 133* POTASSIUM 4.2 CHLORIDE 94* CO2 28 BUN 28* CREATININE 5.47* GLUCOSE 106* CALCIUM 8.5 Assessment: 1) ??S/p left hip arthroplasty 2) ??ESRD 3) ??Hypertension 4) ??Diabetes mellitus 5) Hyperkalemia--resolved with dialysis Plan: Dialysis per Dr. Blackman Avoid medical trauma to right upper extremity Disposition as per Dr. Agudelo * Domi Michel - 01/14/2020 6:01 AM CDT Shift Summary: A&Ox3, disoriented to situation VSS Anuric Dressing CDI Protection placed on heels Picture taken of wound on the sacral area IV saline locked Hemodialysis cath capped Tele Will continue to monitor * Domi Michel - 01/13/2020 7:28 PM CDT Problem: Pain/Discomfort Goal: Patient exhibits reduced pain/discomfort as evidenced by pain scores Outcome: Ongoing Note: Ferdinand will have reduced pain as evidenced by lower pain scores during this shift. Problem: Incision Care Goal: Incision remains intact with edges well approximated Outcome: Ongoing Note: Ferdinand's incision will remain intact w/ edges well approximated during this shift. Goal: Incision is free of infection. Outcome: Ongoing Note: Ferdinand's incision will remain free of infection during this shift. Problem: Fall Risk Goal: Fall risk and fall related injury risk are minimized Outcome: Ongoing Note: Ferdinand will remain free of injury during this shift. Problem: Hemodynamic Status/Cardiac Output Goal: Patient has stable vital signs and fluid balance Outcome: Ongoing Note: Ferdinand will have stable vitals and fluid balance during this shift. * Naveen Blackman MD - 01/13/2020 3:34 PM CDT Renal Progress Note Ferdinand Rasmussen [id number] Symptoms Patient denies fever, chills, chest pain, cough, sob, N/V, abdominal pain Vitals: 01/13/20 1305 01/13/20 1625 01/13/20 1945 01/14/20 0012 BP: 139/51 119/79 134/61 101/57 Pulse: 107 90 49 72 Resp: 16 18 18 16 Temp: 98.1 ??F (36.7 ??C) 98 ??F (36.7 ??C) 99.9 ??F (37.7 ??C) 98.9 ??F (37.2 ??C) SpO2: 98% 100% 95% 98% Weight: Height: Temp (30hrs) Max:99.9 ??F (37.7 ??C) Intake/Output Summary (Last 24 hours) at 01/14/2020 0035 Last data filed at 01/13/2020 1751 Gross per 24 hour Intake 500 ml Output 1665 ml Net -1165 ml Filed Wts: 01/12/20 0853 Weight: 62.8 kg (138 lb 6.4 oz) . MEDICATIONS FOR CURRENT ENCOUNTER: ?? SCHEDULED MEDICATIONS: ?? acetaminophen (TYLENOL) tablet 650 mg, Oral, q6h ?? allopurinol (ZYLOPRIM) tablet 100 mg, Oral, QDAY ?? amLODIPine (NORVASC) tablet 5 mg, Oral, QDAY ?? aspirin chew tablet 81 mg, Oral, BID WC ?? atorvastatin (LIPITOR) tablet 20 mg, Oral, AT BEDTIME ?? celecoxib (CeleBREX) capsule 100 mg, Oral, q12h ?? docusate sodium (COLACE) capsule 100 mg, Oral, BID ?? epoetin ashly-EPBX (RETACRIT) injection 4,000 Units, Subcutaneous, q7 days ?? famotidine (PEPCID) tablet 20 mg, Oral, BID ?? furosemide (LASIX) tablet 80 mg, Oral, BID ?? lisinopril (PRINIVIL;ZESTRIL) tablet 5 mg, Oral, QDAY ?? polyethylene glycol 3350 (MIRALAX) packet 17 g, Oral, QDAY ?? rOPINIRole (REQUIP) tablet 0.5 mg, Oral, AT BEDTIME ?? sevelamer carbonate (RENVELA) tablet 800 mg, Oral, TID WC ?? sodium bicarbonate tablet 325 mg, Oral, QDAY ?? tamsulosin (FLOMAX) capsule 0.4 mg, Oral, AT BEDTIME ?? [COMPLETED] sodium polystyrene sulfonate (KAYEXALATE) suspension 15 g, Oral, Once ?? [COMPLETED] sodium polystyrene sulfonate (KAYEXALATE) suspension 15 g, Oral, Once ?? CONTINUOUS MEDICATIONS: ?? PRN MEDICATIONS: ?? Or ?? Or ?? Or ?? acetaminophen (TYLENOL) tablet 650 mg, Oral, q6h PRN ?? bisacodyl (DULCOLAX) suppository 10 mg, Rectal, QDAY PRN ?? bisacodyl EC (DULCOLAX) tablet 5 mg, Oral, QDAY PRN ?? calcium carbonate (TUMS) chew tablet 2 tablet, Oral, q4h PRN ?? diphenhydrAMINE (BENADRYL) capsule 25 mg, Oral, q6h PRN ?? HYDROcodone-acetaminophen (NORCO) 10-325 MG tablet 1 tablet, Oral, q4h PRN ?? HYDROcodone-acetaminophen (NORCO) 5-325 MG tablet 1 tablet, Oral, q4h PRN ?? HYDROmorphone (DILAUDID) injection 1 mg, Subcutaneous, q3h PRN ?? HYDROmorphone (DILAUDID) injection 2 mg, Subcutaneous, q3h PRN ?? magnesium hydroxide (MILK OF MAGNESIA) suspension 30 mL, Oral, QDAY PRN ?? metoclopramide (REGLAN) injection 5 mg, Intramuscular, q6h PRN ?? metoclopramide (REGLAN) injection 5 mg, Intravenous, q6h PRN ?? naloxone (NARCAN) injection 0.4 mg, Intravenous, PRN ?? ondansetron (disintegrating) (ZOFRAN ODT) tablet 4 mg, Oral, q6h PRN ?? ondansetron (ZOFRAN) injection 4 mg, Intravenous, q6h PRN ?? throat lozenge 1 lozenge, Oral, q2h PRN ?? zolpidem (AMBIEN) tablet 5 mg, Oral, AT BEDTIME PRN Exam General appearance: alert, cooperative, no distress Neck: supple Lungs: breath sounds normal and symmetric; no rales or wheezes Heart: regular rhythm, normal S1 and S2, without murmurs, gallops or rubs Abdomen: soft without mass, non-tender, with normal bowel sounds Extremities: no clubbing, cyanosis or edema ?? Results Recent Labs Component Name 01/13/20 2158 01/13/20 0240 01/12/20 2308 01/12/20 0856 12/27/19 0734 12/22/19 0948 05/26/19 0803 SODIUM - 137 140 139 - 140 138 - 140 POTASSIUM 4.2 6.1* 6.3* 5.5* - 6.3* 5.7* - 4.0 CHLORIDE - 100 102 99 - 98 98 - 100 CO2 - 25 26 28 - 29 29 - 29 BUN - 56* 55* 50* - 47* 42* - 15 CREATININE - 8.37* 8.28* 7.67* - 7.69* 7.70* - 3.48* GLUCOSE - 124* 127* 89 - 88 102 - 83 CALCIUM - 8.8 8.8 9.8 - 9.7 9.4 - 8.5 ALBUMIN - 3.9 - - - 4.4 4.3 - 3.8 PHOS - 5.4* - - - - - - 3.0 - = values in this interval not displayed. No results for input(s): MAGMGDL in the last 69166 hours. Recent Labs Component Name 01/12/20230712/10/19 1049 10/13/19 1215 05/27/19 1913 WBC - 4.0* 6.6 4.5 HGB 10.0* 11.2* 11.7* 8.5* HCT 32.1* 35.1* 37.3 28.2* PLTCOUNT - 156 187 215 No results for input(s): COLORUA, CHARACTERUA, SPECGRAVUA, PHUA, PROTEINUA, BLOODUA, LEUKOCYTEUA, NITRITEUA, GLUCOSEUA, KETONEUA, BILIRUBINUA, UROBILINUA, WBCUA, RBCUA, EPITHUA, MUCUSUA, CASTUA, CRYSTALUA, BACTERIAUA, YEASTUA, TRICHUA in the last 08511 hours. .chest X-ray ..us No results for input(s): PT in the last 67337 hours. No results for input(s): INR in the last 58900 hours. No results for input(s): BNP in the last 80405 hours. Recent Labs Component Name 01/12/20230712/10/19 1049 WBC - 4.0* RBC - 3.28* HGB 10.0* 11.2* HCT 32.1* 35.1* MCV - 107.0* MCH - 34.1* MCHC - 31.9 PLTCOUNT - 156 Assessment and Plan 1. ESRD/severe chronic kidney disease, requiring chronic dialysis. 2. Hypertension, part of it is due to volume 3. Chronic recurrent volume overload due to ESRD, compensated well on dialysis 4. Hyperkalemia due to ESRD 5. Anemia, probably related to his CKD, R/O loss causing anemia 6. S/p left hip arthroplasty [facility] Office [phone] * Laquita Llanos RD/LALO - 01/13/2020 1:52 PM CDT Initial Nutrition Assessment Comments: Consult received for poor nutrition intake / nephew requesting oral nutrition supplementsfor pt. Chart reviewed -- noted pt s/p hip arthroplasty. ESRD on HD. Labs reviewed, agree with renal diet ordered. Per nursing documentation, pt eats chopped up foods d/t dentition. Able to adjust diet consistency as indicated. Pt refused last two meals from documentation. Spoke with pt this afternoon -- reports drinking supplements at home, but unsure kind. Pt with someconfusion at visit, unable to obtain detailed nutrition related history. Will order Nepro with all meals. Encouraged pt to continue oral nutrition supplements, discussed increased protein needs post op + dialysis. Will continue to monitor. Assessment: Med/Surg History and Clinical Diagnoses: s/p hip arthroplasty PMH: ESRD on HD Height: 5' 2 (157.5 cm) Weight: 138 lb 6.4 oz (62.8 kg) BMI: Body mass index is 25.31 kg/m??. BMI Range: Overweight Wt Readings from Last 3 Encounters: 01/12/20 138 lb 6.4 oz (62.8 kg) 12/27/19 138 lb 6.4 oz (62.8 kg) 12/22/19 136 lb 9.6 oz (62 kg) Diet order accuracy Current diet order: Renal Standard Current supplement order: Nepro TID Nutrition recommendation: agree with current nutrition order(adjust consistency if indicated by chewing ability) Food Allergies: No known food allergies P.O.Intake for the past 48 hrs: % Meal Taken Av % Min: 0 % Max: 0 % GI Concerns: None Chewing/Swallowing: Other (Comment)(chopped up food per RN) Pain affecting intake: No Estimated Needs: KCAL: 1568 kcal(25 kcal/kg BW) Protein (g): 81 g(1.3 g/kg BW) Fluid (ml): 1 ml/kcal Recommended Access Route: PO Pertinent Nutrition Labs: Reviewed Recent Labs Component Name 01/13/20 0240 01/12/20 2308 01/12/20 0856 SODIUM 137 140 139 POTASSIUM 6.1* 6.3* 5.5* CHLORIDE 100 102 99 CO2 25 26 28 BUN 56* 55* 50* CREATININE 8.37* 8.28* 7.67* GLUCOSE 124* 127* 89 CALCIUM 8.8 8.8 9.8 EGFR 6 6 7 EGFRAFR 8 8 8 Recent Labs Component Name 01/13/20 0240 05/26/19 0803 PHOS 5.4* 3.0 Pertinent Nutrition Medications: Reviewed Skin: Exceptions to WDL per nursing assess Education needed: Supplements Education Provided: Yes Nutrition Care Process (1) Nutrition Diagnostic Statement: Increased nutrient needs related to:: renal dysfunction as evidenced by:: estimated protein needs .. Nutrition Intervention: Meals and snacks:;Medical Food Supplements: Recommendations: 1. Continue with renal diet order 2. Adjust consistencies as indicated by chewing / dentition 3. Nepro supplements TID (425, 19 g protein per serving) Monitoring: PO intake and tolerance Supplement intake and tolerance Weight and labs Skin assessment and bowel function Evaluation: Diagnostic Statement #1 Goals: Nutrition Goal: Total intake will meet estimated nutrient needs Nutrition Goal Timeframe: Throughout stay Nutrition Goal Progress: New goal established * Dolores Alberts RN - 01/13/2020 1:27 PM CDT Ortho POD # 1 Awake, Alert Afebrile VTE Prophylaxis: aspirin 81mg BID Nausea/ Vomiting: none Incisional Area- silver dressing intact H.V drain in place Ok to discontinue drain in am No calf pain, wiggles toes Pain controlled Con't PT- WBAT Possible rehab at discharge * Donaldo Gonzalez RN - 01/13/2020 12:46 PM CDT Pt is A&O x 2, c/o of pain 10/10 in his feet but declines any intervention. Pt has a RIJ CVC that was accessed per P/P. Dsg clean, dry, and intact. No S&S of infection noted. Pt tolerated tx fair, bp soft during HD. UF of 1.6L removed. Lungs are CTA, no presence of edema noted. Report called to Jose Osborne RN * Rachael Burch RN - 01/13/2020 11:49 AM CDT Unable to meet with patient due to being off the floor at dialysis. Will attempt again at a later date/time Will continue to follow for discharge needs. Rachael Burch RN, BSN [facility] Ass[employer] [phone] * Kwame Berg MD - 01/13/2020 9:23 AM CDT Progress Note 01/13/2020 Patient Name: Ferdinand Rasmussen CSN: [id number] Date of : 1945 Admit Date: 01/12/2020 8:35 AM Hospital Days: Hospital Day: 1 Subjective: On dialysis, denies nausea, vomiting or shortness of breath Objective: Temp (30hrs) Max:99.1 ??F (37.3 ??C) BP 97/57 Pulse 94 Temp 98.5 ??F (36.9 ??C) (Axillary) Resp 20 Ht 1.575 m (5' 2) Wt 62.8 kg (138 lb 6.4 oz) SpO2 94% BMI 25.31 kg/m?? Lung: Clear to auscultation, no rhonchi or crepitus Cardiovascular: Regular rate and rhythm, normal S1S2 without murmur Abdomen: Soft, bowel sounds positive Labs: Recent Labs Component Name 01/12/20 2308 12/10/19 1049 WBC - 4.0* HGB 10.0* 11.2* HCT 32.1* 35.1* PLTCOUNT - 156 Recent Labs Component Name 01/13/20 0240 SODIUM 137 POTASSIUM 6.1* CHLORIDE 100 CO2 25 BUN 56* CREATININE 8.37* GLUCOSE 124* CALCIUM 8.8 Assessment: 1) S/p left hip arthroplasty 2) ESRD 3) Hypertension 4) Diabetes mellitus 5) Hyperkalemia Plan: Kayexalate last night, dialysis today Dialysis per Dr. Blackman Avoid medical trauma to right upper extremity Post-op cardiac monitoring due to ESRD After discharge, patient would like to go home where he claims his nephew can care for him. Will need assessment from PT and OT about whether this plan is viable * Mike Flynn OT - 01/13/2020 8:58 AM CDT Occupational Therapy Initial Evaluation Orders received. Chart reviewed for diagnosis and medical systems review. Nursing consented for OT. Explained purpose of OT and patient consented to participate in therapy. PPE worn by staff: gloves;goggles;mask - procedural Precautions: Fall SUBJECTIVE: Pt. Stated My nephew helps me out at home - pt. Reports he receives assist from nephew for all IADLs, where pt. Is ind. With ADLs. Pt. Reports he was ind. With ADLs, receiving assist for IADLs from nephew, who cooks, cleans, does laundry and provides transport as needed. Pt. May be poor historian. Psychosocial: Patient Behaviors: Calm;Cooperative Pt's goal for therapy: None stated Occupational Profile/PLOF: Type of Residence: Apartment Lives with:: (nephew) Home Structure: One Story Steps to Enter: (2 flights) Handrails: Outdoor Primary Bedroom: First Floor Primary Bathroom: First Floor Bathroom : Tub/Shower Combo Equipment At Home: Walker-2 Wheeled;Chair-Shower;Cane-Straight Mobility: Ambulate-In Home ;Independent;Ambulate-In Community;With Supervision(FWW) Fallen Within 6 Mos: No Have Help at Home?: Yes, there is help at home now How often is assistance provided?: daily, prn Level of Help Sufficient?: Yes Oxygen at Home: No Activity at Home: Sedentary Who manages medications?: nephew Vision: No impairment Hearing Exceptions: No impairment Cognition: Orientation Level: Oriented to Person;Oriented to Place;Disoriented to Situation;Disoriented to Time Level of Consciousness-Adult: Drowsy Cognition: Attention/concentration-decreased;Follows one step commands;Processing-delayed;Judgement-decreased;Safety awareness-decreased Pain Assessment: Pain Rating Score #: 9 Pain Location : Hip Pain Orientation: Left Basic ADL's: Feeding: Set-up(anticipated) Oral Facial Hygiene: Stand By Assist(for facial hygine) Bathing: Moderate Assistance(anticipated) Upper Body Dressing: Minimal Assistance Lower Body Dressing: Total Assistance Toileting: Moderate Assistance;Requires Verbal Cues for Safety;Requires Verbal Cues for Technique Functional Mobility: Bed Mobility: Sit to Supine: Maximum Assistance;Requires Verbal Cues for Safety;Requires Verbal Cues for Technique Transfers: Sit to Stand: Minimal Assistance;Requires Verbal Cues for Safety;Requires Verbal Cues for Technique Stand to Sit: Minimal Assistance;Requires Verbal Cues for Technique;Requires Verbal Cues for Safety Balance: Sitting - Static: Good - Sitting - Dynamic: Fair + Standing - Static: Fair +;With Both Upper Extremity's Support Standing - Dynamic: Fair;With Both Upper Extremity's Support Vitals: Activity Tolerance: Requires rest breaks ASSESSMENT: Pt. Educated on FWW use, transfer techniques, safety strategies, purpose of OT and post. CARLOZ precautions. Pt. Requires increased physical assist from reported PLOF for ADLs and functionaltasks/transfers. Pt. Extremely drowsy throughout session, limited speech throughout session, and requires max VC's for safety/technique with FWW, transfers and ADL tasks as well as for processing, attention, sequencing, safety awareness and simple, repeated one step commands. Due to extreme drowsiness this date and excessive need for cognitive cueing, AE not introduced this date, will continue toassess for need. Session also cut short due to pt. Transport arrival to take pt. To dialysis. Call light and phone in reach with bed alarm activated. All lines, monitors, IV's, equipment in place and intact pre and post visit. RN, notified of patient's performance/location end of session. Problem list: Decreased strength, decreased ROM, decreased endurance, decreased balance, impaired functional mobility, decreased coordination, impaired safety awareness, cognitive impairment, impaired cardiopulmonary function, decreased knowledge of condition, decreased pain tolerance, need for family/caregiver training Functional limitation: Decreased independence with transfers; decreased ability to perform ADLs, decreased UE strength, decreased safety with functional mobility. Rationale for therapy: Patient will benefit from OT to address the above issues. Patient will be seen for: ADL retraining, functional transfers, balance, endurance, exercise. Refer to Plan of Care for OT goals. Refer to filed flow sheet for further details. RECOMMENDATIONS/PLAN: AM-PAC Basic Activity score for this patient is CMS 0-100% Score (Calculated): 59.67 % degree of impairment with higher scores indicating patient may benefit from further inpatient services. OT Discharge Recommendations: Inpatient Rehab If this is the last Occupational Therapy visit, this serves as the discharge summary. Mike Flynn OT x [phone] * Donaldo Gonzalez RN - 01/13/2020 8:44 AM CDT Problem: Hemodynamic Status/Cardiac Output Goal: Patient has stable vital signs and fluid balance Outcome: Ongoing Problem: Fluid and Electrolyte Imbalance Goal: Fluid and electrolyte balance are achieved/maintained Outcome: Ongoing Problem: Infection Goal: Signs and symptoms of infections are decreased or avoided Outcome: Ongoing * Donaldo Gonzalez RN - 01/13/2020 8:03 AM CDT REPORT BEFORE DIALYSIS Reason for admission: ESRD Isolation: None Code Status: Full Orientation Status: A&O x 1 On telemetry/Rhythm: Y/SR Oxygen: RA GIven any medications: Y/See MAR Need for pain medications: No Blood pressure issues: No On any drips: NO Is patient diabetic: No Any labs to draw: Y/ Hep B labs Any other procedures today: No Any concerns about this patient: Pt is very drowsy Any medications to be given with dialysis: No Report from: Jose Osborne RN Phone number: [phone] * Sonya Osborne RN - 01/13/2020 7:54 AM CDT Shift Summary A&O to self. Unable to reorient at this time. Complains of pain, drowsy, quickly falling asleep. Ice packs given. Tremors bilateral hands. Medications given per MAR. Hip precautions followed. Incision dressing CDI. Hemovac clean, dry, compressed, in tact. Working with PT and OT. Went to dialysis. 1.6 Liters off in dialysis. A&Ox3, disoriented to time after dialysis. No tremors in the hands after dialysis. Hemovac 70 ml dark coates red drainage. Bed in the low locked position. Call lightin reach. Refuses to eat, says he is not hungry. Refuses to drink the supplements. Educated severaltimes about hip precautions today. Will continue to monitor. * oSnya Osborne RN - 01/13/2020 7:54 AM CDT Problem: Pain/Discomfort Goal: Patient exhibits reduced pain/discomfort as evidenced by pain scores Outcome: Ongoing Problem: Incision Care Goal: Incision remains intact with edges well approximated Outcome: Ongoing Goal: Incision is free of infection. Outcome: Ongoing Problem: Fall Risk Goal: Fall risk and fall related injury risk are minimized Outcome: Ongoing * Krista Rojas, PT - 01/13/2020 7:50 AM CDT Physical Therapy Evaluation PT orders received. Chart reviewed for diagnosis and medical systems review. Nursing consented for PT. Patient consented to participate in therapy. S/p L posterior THR PMH: Diabetes melltius, Hypertension, ESRD--dialysis Tue/Susan/Sat by Dr. Blackman, s/p placement right deep brachial vein arteriovenous fistula 10/20/2019, Dementia SUBJECTIVE: Pt very drowsy during session and kept eyes closed while in bed. Pt states they were I with ADLs and mobility w/ 2ww. Pt confused and not sure of PLOF. Home Situation: Type of Residence: Apartment Lives with:: (nephew) Steps to Enter: (2 flights) Handrails: Outdoor Home Structure: One Story Equipment At Home: Walker-2 Wheeled;Chair-Shower;Cane-Straight Prior Level of Functioning: Mobility: Ambulate-In Home ;Independent;Ambulate-In Community;With Supervision(FWW) Fallen Within 6 Mos: No Have Help at Home?: Yes, there is help at home now How often is assistance provided?: daily, prn Activity at Home: Sedentary Pain Assessment: Pain Rating Score #: 10 Pain Location : Hip Pain Orientation: Left Patient/family stated goal: To feel better and go home OBJECTIVE: Cognition: Cognition: Attention/concentration-decreased;Follows one step commands;Processing-delayed;Judgement-decreased;Safety awareness-decreased Level of Consciousness-Adult: Drowsy Participation: Active Participation ROM and Strength: Strength - Right Lower Extremity: Within Functional Limits Strength - Left Lower Extremity: (able to df/pf and do LAQ ) Sensation: Sensation - Right Lower Extremity: Within Normal Limits Sensation - Left Lower Extremity: Within Normal Limits Posture: Sitting Posture: Forward Flexed Standing Posture: Forward Flexion Balance: Sitting - Static: Good - Sitting - Dynamic: Fair + Standing - Static: Fair +;With Both Upper Extremity's Support Standing - Dynamic: Fair;With Both Upper Extremity's Support Bed Mobility: Supine to Sit: Maximum Assistance;X 2;Requires Verbal Cues for Safety;Requires Physical Cues for Safety;Requires Verbal Cues for Technique;Requires Physical Cues for Technique Transfers: Sit to Stand: Minimal Assistance;Requires Verbal Cues for Safety;Requires Physical Cues for Safety;Requires Verbal Cues for Technique;Requires Physical Cues for Technique Stand to Sit: Minimal Assistance;Requires Physical Cues for Safety;Requires Verbal Cues for Technique;Requires Physical Cues for Technique;Requires Verbal Cues for Safety Mobility: Distance Ambulated: 20 FEET Ambulation: Assistive Device: Gait Belt;Walker-2 Wheeled Ambulation: Level of Assistance: Moderate Assistance;Requires Verbal Cues for Safety;Requires Physical Cues for Safety;Requires Verbal Cues for Technique;Requires Physical Cues for Technique Ambulation: Gait Deviations: Antalgic;Renetta - Decreased;Increased Trunk Flexion;Increased Weight Bearing through Upper Extremity Activity Tolerance: Activity Tolerance: Requires rest breaks SpO2: 99 % Pulse: 94 BP: 165/65 Pt educated in PT plan of care, AD, ice, HEP, posterior hip precautions, fall precautions, and benefits of OOB activity. Please refer to Filed Flowsheet PT Evaluation for further details. Refer to Plan of Care for PT goals. Patient left in sitting EOB with OT and RN in room All lines, monitors, IV's, equipment in place and intact pre and post visit. Nursing informed about today's treatment session. ASSESSMENT: Pt tolerated treatment fair. Pt confused and drowsy this session. No c/o of dizziness, N&V or SOB with mobility. Pt educated on posterior hip precautions and handout provided. Did notget pt to chair this session due to dialysis coming to get pt. Pt educated on frequent AP and IS. Problem list: decreased cognition, decreased strength, decreased balance, decreased endurance, decreased ROM, decreased coordination Functional limitations: Decreased independence with ambulation/transfers, decreased safety with functional mobility. Rationale for therapy: Patient will benefit from PT to address the above issues. RECOMMENDATIONS/PLAN: See pt BID. Pt will tolerate and benefit from 3 hour/day intense inpatient multidisciplinary therapies to increase independence and functional mobility. If this is the last PT visit, this note serves as the discharge summary. Krista Rojas, PT x [phone] * Gabriela Rivas RN - 01/13/2020 5:04 AM CDT [place] is alert and oriented x 4. Tolerating diet. Pain controlled with [place] 10 and ice. Dressing clean, dry, intact, hemovac in place. No complaints of nausea, SOB, or chest pain. Vital signs stable. Lab called with potassium 6.3 & 6.1, Dr Berg ordered Tele and Dr. Blackman ordered Kayexalate X 2. Dialysis today. Pt did not urinate post surgery, he states he rarely urinates. Will continue to mo nitor. * Gabriela Rivas RN - 01/12/2020 7:32 PM CDT Problem: Pain/Discomfort Goal: Patient exhibits reduced pain/discomfort as evidenced by pain scores Outcome: Ongoing [place] exhibits reduced pain as evidenced by pain scores. Problem: Incision Care Goal: Incision remains intact with edges well approximated Outcome: Ongoing Goal: Incision is free of infection. Outcome: Ongoing [place]'s incision remains intact with edges well approximated and no symptoms of infection have beenidentified. Problem: Fall Risk Goal: Fall risk and fall related injury risk are minimized Outcome: Ongoing [place]'s fall risk and fall related injury are minimized. * Cecilia Bertrand RN - 01/12/2020 6:[address] Berg of new consult and of the fact pt right upper chest jose is not stitched to pts chest. Nephew unaware of when sutures fell out. New orders received for nephrology consult * Cecilia Bertrand RN - 01/12/2020 5:39 PM CDT End of shift report: Pt tx from PACU to room 432 via stretcher at 1647. Pt arousable to pain, stillsedated. Regular diet ordered however too sedated to eat. Nephew says pt baseline is Ox4, speaks very little (yes and no), eats regular food that is chopped up d/t no teeth and also walks with walkerslowly prior to surgery today. Left hip incis covered with silver dressing which is D&I and iceover site. Hemovac in placed and compressed draining dk red drainage. VSS, R/A, Q2 hour turn. Pt with pink but blanchable coccyx/ gluteal fold and mepilex placed over site. Bilat heels intact, mepilex drsg place over bilat heels for prevention as well as elevated on pillow. Heel protectors ordered at this time. Pt with AV fistula RUE with postive bruit and thrill, limb alert placed on wrist. Received pt from PACU with 2 ivs, left and right upper extremities. Unsure if pt urinates, d/t abductor pillow in place condom cath put on pt. documented in this encounter H&P Notes * Dylon Agudelo MD - 01/12/2020 7:46 AM CDT ORTHOPAEDIC CLINIC NOTE ?? NAME:?[place] [facility] DATE OF SERVICE: DATE:??1945 PCP:??Kwame Berg MD ? Chief Complaint Patient presents with ??? Follow-up ? left hip? HISTORY:??Ferdinand Rasmussen??is a 74 year old??male??who presents to discuss his left hip pain. 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 He has a PMH of ESRD. He does have anAV fistula placed by Dr. Iyer. He saw Dr. Girard who helped address his anemia before surgery. His hgb on 10/12 was 11.7. He is experiencing debilitating daily pain. He cannot ambulate without a walker. Two weeks ago, we attempted CARLOZ but his K was 6.3. Anesthesia did not believe it is safe to proceedwith surgery. We rescheduled for today so that he could have dialysis yesterday. ?? ALLERGIES:? Allergies as of 11/19/2019 ??? (No Known Allergies) ? PHYSICAL EXAMINATION: General appearance:??alert, cooperative, no distress. Extremities: Skin:??normal Swelling:??none Tenderness:??mild ROM:??F85, F/IR 0, F/ER 10 Strength:??4??on 5 Gait:??walker Neurological Exam:??normal Vascular Exam:??DP dopplerable ?? RADIOGRAPHS: ??AP and lateral X-rays of the left??hip??reveal severe Left hip OA with acetabular remodeling and limb length discrepancy ?? ASSESSMENT:??left??hip OA ?? PLAN:? The patient currently experiences severe pain on a daily basis and is markedly limited in activities of daily living including ambulation and decreased standing endurance. Maximal medical treatment including activity modification and NSAIDs have not helped improve their function. ??Secondary to theadvanced nature of the patient's degenerative joint disease and the severity of their symptoms, further attempts at nonsurgical treatment are contraindicated as they have no realistic chance at providing symptomatic or functional improvement. ?? On this basis we have recommended??left??superior??total hip arthroplasty. ??We had a prolonged discussion about risks, benefits, alternatives, and complications including but not limited to bleeding, infection, leg-length discrepancy, instability, neurovascular injury, intraoperative or postoperative fracture, and deep venous thrombosis. The patient has expressed a desire to proceed with reconstructive surgery. If his electrolytes are appropriate, we will proceed today. ?? documented in this encounter Consult Notes * Olivia Palacio RN - 01/20/2020 9:12 AM CDTAssociated Order(s): IP CONSULT TO PHYSICAL MED AND REHAB [facility] has initiated an evaluation per consult order. Pt will need acceptance from our biomedical specialist. Will discuss with our physician and follow up with CM. Thank you for the referral! Olivia Palacio RN, BSN Clinical Liaison [facility] * Darwin Ridley MD - 01/17/2020 1:24 PM CDT Cardiology Consultation Note Reason for Consultation: Atrial fibrillation History of Present Illness: The patient is a very pleasant 74 year old male with a history including severe left hip arthritis,dementia, ESRD on HD, HTN, DM. Underwent left hip total arthroplasty this admission, uncomplicated.This am noted to be in atrial fibrillation about 0900 with controlled rate. Patient unable to give coherent history due to dementia, but denies SOB or chest pain, or palpitations. No prior known cardiac history. Readmission Risk Score: If there is no ACADEMIC COACH Total Score indicated, this patient has yet to be assessed for Readmission Risk or the BNA Score was < 10. If the patient has been assessed, the score is: ACADEMIC COACH TOTAL SCORE: 5 Past Medical History: Diagnosis Date ??? Cancer 2000 pt unsure of type of cancer ??? Chronic kidney disease ??? ESRD (end stage renal disease) Evelyn mcmahon ,,[facility] 11/2419 ??? ESRD on dialysis ??? [...] PROCEDURE/SURGERY 10/20/2019 RIGHT UPPER ARM ARTERIOVENOUS FISTULA Medications Prior to Admission Medication Sig Dispense Refill ??? allopurinol (ZYLOPRIM) 100 MG tablet Take 100 mg by mouth once daily ??? amLODIPine (NORVASC) 5 MG tablet Take 5 mg by mouth once daily ??? atorvastatin (LIPITOR) 20 MG tablet Take 20 mg by mouth at bedtime 0 ??? docusate sodium (COLACE) 100 MG [...] time every day after a meal. ??? traMADol (ULTRAM) 50 MG tablet Take 1 tablet by mouth 2 times daily as needed for Pain 60 tablet 0 No Known Allergies Social History: Social History Tobacco Use ??? Smoking status: Former Smoker Last attempt to quit: 10/12/2012 Years since quittin.2 ??? Smokeless tobacco: Never Used Substance Use Topics ??? Alcohol use: Not Currently ??? Drug use: Never Family History: Family History Problem Relation Name Age of Onset ??? Hypertension Mother ??? Hypertension Sister ??? Diabetes - Type 2 Sister Review of Symptoms: Unreliable due to dementia Physical Exam: BP 131/52 Pulse 68 Temp 98.5 ??F (36.9 ??C) (Oral) Resp 16 Ht 1.575 m (5' 2) Wt 62.8 kg (138 lb 6.4 oz) SpO2 100% BMI 25.31 kg/m2 General: Well developed, well nourished, in no acute distress, oriented to person, place, and not time Skin: Warm and dry, no jaundice Head: Normocephalic, oral mucosa and conjunctivae normal Eyes: Pupils equal, no xanthelasma Neck: No thyromegaly or bruits. Carotid pulses 2+ Lungs: Clear to auscultation and percussion. Respirations unlabored Cardiac: PMI normal. JVP normal. S1 normal, S2 normal, no murmur, no gallop or rub Abd: Soft, nontender, BS active, no hepatosplenomegaly or masses, no abdominal bruit or enlarged aortic pulsation Extremities: No clubbing, cyanosis. No edema. Femoral pulses 2+. Pedal pulses diminished Musculoskeletal: Muscle strength normal. No scoliosis. Neurologic: Moves extremities equally. Extraocular muscles intact. Mood not depressed My review of labs, imaging, notes and other tests is significant for Recent Labs Component Name 01/12/20 2308 12/10/19 1049 10/13/19 1215 05/27/19 1913 WBC - 4.0* 6.6 4.5 HGB 10.0* 11.2* 11.7* 8.5* HCT 32.1* 35.1* 37.3 28.2* PLTCOUNT - 156 187 215 Recent Labs Component Name 01/17/20 0431 01/16/20 0421 01/15/20 0406 SODIUM 140 137 133* POTASSIUM 3.9 3.7 3.9 CHLORIDE 99 99 93* CO2 30 31 25 BUN 44* 23 46* CREATININE 6.02* 3.89* 7.38* GLUCOSE 116* 110* 112* CALCIUM 8.4 8.4 8.3* Recent Labs Component Name 01/17/20 0431 01/16/20 0421 01/15/20 0406 12/27/19 0734 12/22/19 0948 10/13/19 1215 05/13/19 0500 ALBUMIN 3.1* 3.1* 3.1* - 4.4 4.3 3.9 - 3.4 ALKPHOS - - - - 62 61 - - 59 ALT - - - - 8 <6 - - 32 AST - - - - 12 11 - - 16 TBIL - - - - 0.4 0.4 - - 0.3 DBIL - - - - - - - - 0.1 TPROT - - - - 7.7 7.3 7.3 - 6.4 - = values in this interval not displayed. Assessment: ?? Paroxysmal atrial fibrillation, rate controlled. CHADS-VASc score is 4. ?? S/P total left hip arthroplasty. ?? Dementia. Denies falling ?? ESRD on HD ?? DM ?? HTN Plan: ?? Agree with changing amlodipine to diltiazem, rate control only ?? Check TSH ?? If not a fall risk, recommend anticoagulation with Eliquis 2.5 mg bid. I appreciate the opportunity to participate in the care of this very pleasant patient. We will continue to follow with you. Darwin Ridley MD, [facility], 01/17/2020 1:24 PM * Naveen Blackman MD - 01/12/2020 9:00 PM CDT Renal Consult Ferdinand Rasmussen [id number] No Known Allergies Reason for Consultation: END Stage Renal Disease Requested by: Kwame Berg MD HPI : The patient is a 74 y.o. year old male with a past medical history of ESRD on dialysis three times a week, TTS at [facility], HLD, HTN, Obesity, CHF/volume overload, OA of left hip, was electively admitted to LEFT POSTERIOR ARTHROPLASTY TOTAL HIP, for the ESRD, nephrology consult requested to assist dialysis. Upon interview, patient denies fever, shaking chills, lightheadedness, dizziness, vision changes, headaches, sore throat, coughing, short of breath, chest pain, anorexia, nauseousness, vomiting, abdominal pain. Patient has ESRD on dialysis. Denies any urological symptoms, including dysuria, burning sensation, urgency, prequency, flow problem. Denies excessive cold intolerance, pruritus. Denies fatigue, weakness, focal neurological deficits. Denies skin rash. Past Medical History: Past Medical History: Diagnosis Date ??? Cancer 2000 pt unsure of type of cancer ??? Chronic kidney disease ??? ESRD (end stage renal disease) Evelyn mcmahon -indra,,sat 11/2419 ??? ESRD on dialysis ??? High blood pressure ??? Pure hypercholesterolemia ??? Stroke per pt Past Surgical history: Past Surgical History: Procedure Laterality Date ??? HIP ARTHROPLASTY, TOTAL Left 01/12/2020 LEFT POSTERIOR ARTHROPLASTY TOTAL HIP ??? INSERTION DIALYSIS CATHETER Right 04/2019 r chest tunneled cath ??? OTHER SURGERY Testicular surgery per nephew but not positive? VASCULAR PROCEDURE/SURGERY 10/20/2019 RIGHT UPPER ARM ARTERIOVENOUS FISTULA Home Medications: No current facility-administered medications on file prior to encounter. Current Outpatient Medications on File Prior to Encounter Medication Sig Dispense Refill ??? allopurinol (ZYLOPRIM) 100 MG tablet Take 100 mg by mouth once daily ??? amLODIPine (NORVASC) 5 MG tablet Take 5 mg by mouth once daily ??? atorvastatin (LIPITOR) 20 MG tablet Take 20 mg by mouth at bedtime 0 ??? docusate sodium (COLACE) 100 MG [...] time every day after a meal. ??? traMADol (ULTRAM) 50 MG tablet Take 1 tablet by mouth 2 times daily as needed for Pain 60 tablet 0 Current Medications: MEDICATIONS FOR CURRENT ENCOUNTER: ?? SCHEDULED MEDICATIONS: ?? acetaminophen (TYLENOL) tablet 650 mg, Oral, q6h ?? allopurinol (ZYLOPRIM) tablet 100 mg, Oral, QDAY ?? amLODIPine (NORVASC) tablet 5 mg, Oral, QDAY ?? aspirin chew tablet 81 mg, Oral, BID WC ?? atorvastatin (LIPITOR) tablet 20 mg, Oral, AT BEDTIME ?? celecoxib (CeleBREX) capsule 100 mg, Oral, q12h ?? docusate sodium (COLACE) capsule 100 mg, Oral, BID ?? epoetin ashly-EPBX (RETACRIT) injection 4,000 Units, Subcutaneous, q7 days ?? famotidine (PEPCID) tablet 20 mg, Oral, BID ?? furosemide (LASIX) tablet 80 mg, Oral, BID ?? lisinopril (PRINIVIL;ZESTRIL) tablet 5 mg, Oral, QDAY ?? polyethylene glycol 3350 (MIRALAX) packet 17 g, Oral, QDAY ?? rOPINIRole (REQUIP) tablet 0.5 mg, Oral, AT BEDTIME ?? sevelamer carbonate (RENVELA) tablet 800 mg, Oral, TID WC ?? sodium bicarbonate tablet 325 mg, Oral, QDAY ?? sodium polystyrene sulfonate (KAYEXALATE) suspension 15 g, Oral, Once ?? tamsulosin (FLOMAX) capsule 0.4 mg, Oral, AT BEDTIME ?? [COMPLETED] metoclopramide (REGLAN) tablet 10 mg, Oral, Once ?? CONTINUOUS MEDICATIONS: PRN MEDICATIONS: Or Or Or acetaminophen (TYLENOL) tablet 650 mg, Oral, q6h PRN bisacodyl (DULCOLAX) suppository 10 mg, Rectal, QDAY PRN bisacodyl EC (DULCOLAX) tablet 5 mg, Oral, QDAY PRN calcium carbonate (TUMS) chew tablet 2 tablet, Oral, q4h PRN diphenhydrAMINE (BENADRYL) capsule 25 mg, Oral, q6h PRN HYDROcodone-acetaminophen (NORCO) 10-325 MG tablet 1 tablet, Oral, q4h PRN HYDROcodone-acetaminophen (NORCO) 5-325 MG tablet 1 tablet, Oral, q4h PRN HYDROmorphone (DILAUDID) injection 1 mg, Subcutaneous, q3h PRN HYDROmorphone (DILAUDID) injection 2 mg, Subcutaneous, q3h PRN magnesium hydroxide (MILK OF MAGNESIA) suspension 30 mL, Oral, QDAY PRN metoclopramide (REGLAN) injection 5 mg, Intramuscular, q6h PRN metoclopramide (REGLAN) injection 5 mg, Intravenous, q6h PRN naloxone (NARCAN) injection 0.4 mg, Intravenous, PRN ondansetron (disintegrating) (ZOFRAN ODT) tablet 4 mg, Oral, q6h PRN ondansetron (ZOFRAN) injection 4 mg, Intravenous, q6h PRN throat lozenge 1 lozenge, Oral, q2h PRN zolpidem (AMBIEN) tablet 5 mg, Oral, AT BEDTIME PRN Social History: Social History Socioeconomic History ??? Marital status: [...] Last attempt to quit: 10/12/2012 Years since quittin.2 ??? Smokeless tobacco: Never Used Substance and Sexual Activity ??? Alcohol use: Not Currently ??? Drug use: Never ??? Sexual activity: Not on file Lifestyle ??? Physical activity Days per week: Not on file Minutes per session: Not on file ??? Stress: Not on file Relationships ??? Social connections Talks on phone: Not on file Gets together: Not on file Attends lutheran service: Not on file Active member of [...] Social History Narrative ??? Not on file Family History: Family History Problem Relation Name Age of Onset ??? Hypertension Mother ??? Hypertension Sister ??? Diabetes - Type 2 Sister ROS: Review of Systems - Please see the HPI part of this note. Vital signs: Patient Vitals for the past 24 hrs: Temp Pulse Resp BP 01/12/20 2310 98.9 ??F (37.2 ??C) 78 16 143/64 01/12/20 1830 98.5 ??F (36.9 ??C) 86 16 136/54 01/12/20 1730 98.2 ??F (36.8 ??C) 93 16 99/50 01/12/20 1700 98.3 ??F (36.8 ??C) 87 14 145/60 01/12/20 1545 -- 82 12 101/66 01/12/20 1530 -- 89 14 120/66 01/12/20 1515 -- 85 14 104/69 01/12/20 1500 -- 87 12 128/62 01/12/20 1445 -- 83 10 136/65 01/12/20 1430 -- 85 9 101/59 01/12/20 1415 -- 86 13 139/61 01/12/20 1400 -- 98 18 121/63 01/12/20 1345 -- 89 11 103/59 01/12/20 1330 -- 90 21 135/86 01/12/20 1315 -- 93 18 138/61 01/12/20 1300 -- 93 12 142/77 01/12/20 1245 -- 93 18 160/74 01/12/20 1230 -- 91 17 136/56 01/12/20 1227 97 ??F (36.1 ??C) 91 15 136/56 01/12/20 0917 98.4 ??F (36.9 ??C) 71 16 127/53 I/O: Intake/Output Summary (Last 24 hours) at 01/13/2020 0202 Last data filed at 01/12/2020 2035 Gross per 24 hour Intake 1300 ml Output 280 ml Net 1020 ml Weight: Weight: 62.8 kg (138 lb 6.4 oz) Exam: General: In no acute distress. Skin: No rash noted. HEENT: Head atraumatic, normocephalic, PERRLA, EOMI, anicteric sclera, MMM Neck: Supple, No JVD Lungs: CTA, bilaterally, no wheezing, rhonchi, rales appreciated. Heart: RRR, S1 and S2 without pericardiac rubs Abd: Soft, Nontender, not distended, positive bowel sounds Extremities: No clubbing, cyanosis, or edema Neuro: Awake, alert oriented x 3. No asterias on overstretched upper extremeties Labs: No results for input(s): COLORUA, CHARACTERUA, SPECGRAVUA, PHUA, PROTEINUA, BLOODUA, LEUKOCYTEUA, NITRITEUA, GLUCOSEUA, KETONEUA, BILIRUBINUA, UROBILINUA in the last 89108 hours. Recent Labs Component Name 01/12/20230712/10/19 1049 10/13/19 1215 05/27/19 1913 05/26/19 0803 WBC - 4.0* 6.6 4.5 4.8 RBC - 3.28* 3.57* 2.72* 2.93* HGB 10.0* 11.2* 11.7* 8.5* 9.2* HCT 32.1* 35.1* 37.3 28.2* 30.1* MCV - 107.0* 104.5* 103.7* 102.7* MCHC - 31.9 31.4 30.1* 30.6* RDWCV - 13.6 14.1 17.1* 16.4* PLTCOUNT - 156 187 215 233 NEUTPCT - 47.8 - 45.5 54.2 LYMPHPCT - 30.8 - 30.8 26.4 BASOPHILPCT - 0.5 - 0.7 0.8 GRANSIMMPCT - - - 2.0* 3.1* LYMPHABS - 1.24 - 1.38 1.26 BASOABS - 0.02 - 0.03 0.04 NRBCAUTO - - - 0 1 Recent Labs Component Name 01/12/20230701/12/20 0856 12/27/19 0837 12/27/19 0734 12/22/19 0948 10/13/19 1215 05/13/19 0500 SODIUM 140 139 - 140 138 - - - 137 POTASSIUM 6.3* 5.5* 6.2* 6.3* 5.7* - - - 3.6 CHLORIDE 102 99 - 98 98 - - - 96* CO2 26 28 - 29 29 - - - 26 BUN 55* 50* - 47* 42* - - - 48* CREATININE 8.28* 7.67* - 7.69* 7.70* - - - 5.64* GLUCOSE 127* 89 - 88 102 - - - 121* CALCIUM 8.8 9.8 - 9.7 9.4 - - - 8.3* ALBUMIN - - - 4.4 4.3 - 3.9 - 3.4 ALKPHOS - - - 62 61 - - - 59 ALT - - - 8 <6 - - - 32 AST - - - 12 11 - - - 16 TBIL - - - 0.4 0.4 - - - 0.3 TPROT - - - 7.7 7.3 - 7.3 - 6.4 EGFR 6 7 - 7 7 - - - 10 - = values in this interval not displayed. Assessment: 1. ESRD/severe chronic kidney disease, requiring chronic dialysis. 2. Hypertension, part of it is due to volume 3. Chronic recurrent volume overload due to ESRD, compensated well on dialysis 4. Hyperkalemia due to ESRD 5. Anemia, probably related to his CKD, R/O loss causing anemia 6. S/p left hip arthroplasty ?? Plan: Continue dialysis support for ESRD including azotemia/uremia, electrolytes and acid/base derangement.?? Continue ultrafiltration for volume overload, adjust medication dose due to severe kidney disease.?? Patient should on renal diet and fluids restriction due to ESRD.?? Volume status and respiratory status should be monitored closely.?? Monitor intake and output closely. For anemia, continue to monitor H/H, will continue Epogen as indicated.?? Thank you for your consult, we will follow the care with you. Total time spent for this consult is 75 minutes. Naveen Blackman Office , * Kwame Berg MD - 01/12/2020 6:57 PM CDTAssociated Order(s): IP CONSULT TO PRIMARY PHYSICIAN Patient name: Ferdinand Rasmussen Date of admission: 01/12/2020 8:35 AM Chief Complaint: Left hip pain History of Present Illness: Patient is a [age] year old male with advanced arthritis left hip underwent left hip arthoplasty by Dr. Agudelo earlier today. Since the surgery, patient denies coughing, wheezing, shortness of breath, nausea or vomiting. Past Medical History: 1) Diabetes melltius 2) Hypertension 3) ESRD--dialysis Tue/Susan/Sat by Dr. Blackman, 4) s/p placement right deep brachial vein arteriovenous fistula 10/20/2019 5) Dementia Medicines: Medications Prior to Admission Medication Sig Dispense Refill ??? allopurinol (ZYLOPRIM) 100 MG tablet Take 100 mg by mouth once daily ??? amLODIPine (NORVASC) 5 MG tablet Take 5 mg by mouth once daily ??? atorvastatin (LIPITOR) 20 MG tablet Take 20 mg by mouth at bedtime 0 ??? docusate sodium (COLACE) 100 MG [...] time every day after a meal. ??? traMADol (ULTRAM) 50 MG tablet Take 1 tablet by mouth 2 times daily as needed for Pain 60 tablet 0 Allergies: No Known Allergies Social History: Quit smoking 2013, denies alcohol use Family History: Non-contributory Review of Systems: Denies fevers, chills, sore throat, difficulty swallowing, coughing, wheezing, shortness of breath, chest pains, nausea or vomiting Physical Exam: BP 136/54 Pulse 86 Temp 98.5 ??F (36.9 ??C) (Axillary) Resp 16 Ht 1.575 m (5' 2) Wt 62.8kg (138 lb 6.4 oz) SpO2 95% BMI 25.31 kg/m?? General: Well developed elderly male, awake and alert in no distress HEENT: Normocephalic, atraumatic, EOMI Neck: Carotids without bruits Lungs: Clear to auscultation, no rhonchi or crepitus Cardiovascular: Regular rate and rhythm, normal S1S2 without murmur Abdomen: Soft, bowel sound positive Extremities: No cyanosis, clubbing, or edema Neurologic: Alert and oriented x hospital Labs: Recent Labs Component Name 01/12/20 0856 12/27/19 0734 SODIUM 139 - 140 POTASSIUM 5.5* - 6.3* CHLORIDE 99 - 98 CO2 28 - 29 BUN 50* - 47* CREATININE 7.67* - 7.69* GLUCOSE 89 - 88 CALCIUM 9.8 - 9.7 ALBUMIN - - 4.4 ALKPHOS - - 62 ALT - - 8 AST - - 12 TBIL - - 0.4 TPROT - - 7.7 EGFR 7 - 7 - = values in this interval not displayed. Assessment: 1) S/p left hip arthroplasty 2) ESRD 3) Hypertension 4) Diabetes mellitus Plan: PT and OT Consult nephrology for dialysis management Avoid medical trauma to right upper extremity Post-op cardiac monitoring due to ESRD documented in this encounter OR Notes * Operative - Dylon Agudelo MD - 01/12/2020 10:38 AM CDT ORTHOPEDIC OPERATIVE NOTE Patient: Ferdinand Rasmussen : 1945 Date of Service: 01/14/2020 PREOPERATIVE DIAGNOSES: Left end-stage hip osteoarthritis POSTOPERATIVE DIAGNOSES: Left end-stage hip osteoarthritis OPERATION/PROCEDURE: Left total hip arthroplasty, direct superior approach SURGEON: Dylon Agudelo MD VALET PARKING ATTENDANT(S): Barrel Racer: Christina Stiles RN Physician Corrugated Box Machine Operator: Abigail Madrid PA Registered Nurse Letter Stamping Machine Operator: Geronimo Wright, RN Scrub Person: Ana Silva RN The presence of 2 qualified surgical assistants was necessary for proper patient positioning, soft tissue retraction, and expedient performance of the surgical procedure. EBL: 200 ml Antibiotics: Ancef and Vancomycin Complications: none identified INDICATION: Ferdinand Rasmussen is a pleasant 74 year old male who has been under my care for left hip pain. Preoperative workup is consistent with the aforementioned diagnoses. After reviewing treatment options with thepatient, which included continued conservative management in the form of observation and activity modification versus hip arthroplasty, the patient elected to proceed with the latter. The risks and benefits of the procedure were discussed with them in detail. They understood. PROCEDURE: The patient was identified the preoperative holding area. The operative consent obtained. The operative limb was marked. The patient brought to operating room and spinal anesthesia was administered. The patient was then positioned in the lateral decubitus position with the operative side up. All bony prominences were padded. An axillary roll was placed. A preoperative surgical time-out was performed which verified the proper patient, procedure, side, and site. Preoperative antibiotics were infused within 1 hour of the incision. Tranexamic acid was also administered. A 10 cm incision was made along the posterior hip beginning from the posterosuperior corner of the greater trochanter. Sharp dissection was performed to expose the fascia overlying the greater trochanter. This was divided in line with the skin incision. Fibers of the gluteus jeniffer bluntly divideddigital dissection. The gluteus medius was elevated from the gluteus minimus and posterior externalrotators. Pre capsular fat was excised and hemostasis was obtained. The tendon of the piriformis was released from the insertion on the greater trochanter. This was tagged with a suture and tied to the skin for soft tissue retraction of the sciatic nerve. A capsulotomy was made in line with the femoral neck curving superiorly at a point overlying the posterior acetabulum. The hip was dislocated and a femoral neck osteotomy was performed. We exposed the acetabulum. Inspection of the hip revealed severe diffuse chondral wear. There was asignificant expansile deformity of the acetabulum. The labrum was excized and the pulvinar removed.We began reaming with a size 47 mm reamer in order to medialize the cup placment. Once we reached the floor of the teardrop, we reamed up concentrically to a size 57. Then a size 58 mm porous coated cup was impacted into position in approximately 40 degrees of abduction and 20 degrees of anteversion. Two screws, 30 mm and 20 mm, were placed into the safe zone. The appropriate 40 mm polyethylene liner was placed. The femoral neck elevator was placed medially at the proximal femur. We took care to protect the hip abductor insertion during this process. The box osteotome was used to lateralize our access to thecanal. The canal finder was then inserted into the canal. The canal was broached sequentially until rotational stability was achieved. The broaching was done with 10 degrees of anteversion. The canalwas thoroughly irrigated. We trialed the components to assess leg-length and off-set radiographically. We assessed stability in the sleeper position and 90?? of flexion with maximum internal rotation. We then assessed leg lengths. We also compared distance from the greater trochanter tip to the center of the femoral head against our preoperative template, adjusting for magnification. The final stem, size 6, high-offset Taperloc Microplasty, was then selected and impacted into placewith approximately 10 degrees of anteversion. A 40 -3 mm ceramic head was impacted into position. All final components were placed and stability was assessed again. I then copiously irrigated the hipjoint with a dilute solution of chlorhexidine. Vancomycin powder was applied along with aqueous TXA. We performed an anatomic repair of the superior posterior capsule and piriformis tendon. The wound was closed with a heavy braided suture and quill in the tensor fascia. The skin was approximated with, 2-0 dissolving suture and a running Monocryl. A water proof bandage was applied and the patient was taken to the PACU in stable condition. Dylon Agudelo MD Implant Name Type Inv. Item Serial No. Display Card Writer Lot No. LRB No. Used Action G7 AETABULAR SHELL 3 HOLE POROUS PLASMA, CEMENTLESS [employer] [id number] Left 1 Implanted BONE SCREW SELF TAPPING 6.5 DIAMETER/ 30MM LENGTH [employer] [id number] Left 1 Implanted BONE SCREW SELF TAPPING 6.5MM DIAMETER/ 20MM LENGTH [employer] [id number] Left 1 Implanted G7 VIVACIT E VITAMINE HIGHLY CROSSLINKED POLYETHYLENE LINER [employer] [id number] Left 1 Implanted TAPERLOCK COMPLETE MICRO PRIMARY FEMORAL STEM 6X97.5 MM [employer] [id number] Left 1 Implanted CERAMIC HEAD [employer] [id number] Left 1 Implanted Slv Centering -3Mm Ofst Tpr Hip Blx D Ty Slv Centering -3Mm Ofst Tpr Hip Blx D Ty [employer] [id number] Left 1 Implanted documented in this encounter Plan of Treatment Upcoming Encounters Date Type Department Care Team (Late st Contact Info) Description 08/23/2024 1:00 PM CDT Appointment [facility] [address], [address] [place] [address] [place] [address] [place] [address] [place] [id number] [place], [place] [id number] documented as of this encounter Procedures Procedure Name Priority Date/Time Associated Diagnosis Comments CARDIAC RHYTHM STRIP ORDER 01/21/2020 8:52 PM CDT RENAL FUNCTION PANEL AM Draw 01/20/2020 4:45 AM CDT RENAL FUNCTION PANEL AM Draw 01/19/2020 3:50 AM CDT TSH REFLEX FREE T4 Routine 01/18/2020 3: 07 AM CDT RENAL FUNCTION PANEL AM Draw 01/18/2020 3:07 AM CDT ECHOCARDIOGRAM 2D WITH DOPPLER Routine 01/17/2020 8:30 AM CDT Atrial fibrillation, unspecified type (HCC) RENAL FUNCTION PANEL AM Draw 01/17/2020 4:31 AM CDT RENAL FUNCTION PANEL AM Draw 01/16/2020 4:21 AM CDT HEMODIALYSIS INPATIENT Routine 01/15/2020 11:57 AM CDT GLUCOSE - POINT OF CARE Routine 01/15/2020 11:34 AM CDT GLUCOSE - POINT OF CARE Routine 01/15/2020 7:34 AM CDT RENAL FUNCTION PANEL AM Draw 01/15/2020 4:06 AM CDT GLUCOSE - POINT OF CARE Routine 01/14/2020 7:48 PM CDT GLUCOSE - POINT OF CARE Routine 01/14/2020 4:51 PM CDT GLUCOSE - POINT OF CARE Routine 01/14/2020 12:07 PM CDT GLUCOSE - POINT OF CARE Routine 01/14/2020 7:33 AM CDT RENAL FUNCTION PANEL AM Draw 01/14/2020 5:07 AM CDT POTASSIUM BLOOD STAT 01/13/2020 9:58 PM CDT GLUCOSE - POINT OF CARE Routine 01/13/2020 9:23 PM CDT HEPATITIS B SURFACE ANTIBODY QUANT STAT 01/13/2020 8:34 AM CDT ESRD (end stage renal disease) (HCC) HEPATITIS B SURFACE ANTIGEN W RFLX CONFIRMATION STAT 01/13/2020 8:34 AM CDT ESRD (end stage renal disease) (HCC) RENAL FUNCTION PANEL KELSEY 01/13/2020 2:40 AM CDT ESRD (end stage renal disease) (HCC) HEMODIALYSIS INPATIENT Routine 01/13/2020 1:49 AM CDT ESRD (end stage renal disease) (HCC) HGB HCT PANEL AM Draw 01/12/2020 11:08 PM CDT BASIC METABOLIC PANEL (CALCIUM TOTAL) AM Draw 01/12/2020 11:08 PM CDT GLUCOSE - POINT OF CARE Routine 01/12/2020 5:33 PM CDT GLUCOSE - POINT OF CARE Routine 01/12/2020 12:30 PM CDT TX TOTAL HIP REPLACEMENT 01/12/2020 9:48 AM CDT Special Needs BIOMET (LUZ) NOTIFIED-NB BASIC METABOLIC PANEL (CALCIUM TOTAL) STAT 01/12/2020 8:56 AM CDT Preop examination documented in this encounter Results * CARDIAC RHYTHM STRIP ORDER (01/21/2020 8:52 PM CDT) Narrative 01/21/2020 8:52 PM CDT Ordered by an unspecified provider. Scanned Document CARDIAC SERVICES ORD ERABLES * (ABNORMAL) RENAL FUNCTION PANEL (01/20/2020 4:45 AM CDT) Glucose 125(H) 70 - 105 mg/dL 01/20/2020 6:10 AM CDT [facility] Sodium 136 136 - 145 mmol/L 01/20/2020 6:10 AM CDT [facility] Potassium 4.3 3.5 - 5.1 mmol/L 01/20/2020 6:10 AM CDT [facility] Chloride 98 98 - 107 mmol/L 01/20/2020 6:10 AM CDT [facility] CO2 26 23 - 31 mmol/L 01/20/2020 6:10 AM CDT [facility] Calcium 8.8 8.4 - 10.4 mg/dL 01/20/2020 6:10 AM T [facility] Anion Gap 12 8 - 16 mmol/L 01/20/2020 6:10 AM CDT [facility] BUN 57(H) 8.4 - 25.7 mg/dL 01/20/2020 6:10 AM CDT [facility] Creatinine 6.54(H) 0.72 - 1.25 mg/dL 01/20/2020 6:10 AM CDT [facility] Albumin 3.4 3.2 - 4.6 gm/dL 01/20/2020 6:10 AM CDT [facility] Phosphorus 3.4 2.3 - 4.7 mg/dL 01/20/2020 6:10 AM CDT [facility] eGFR by MDRD 8 mL/min/1.7 3m2 01/20/2020 6:10 AM CDT [facility] eGFR by MDRD 10 mL/min/1.7 3m2 01/20/2020 6:10 AM T [facility] Blood BLOOD SPECIMEN / Unknown Venipuncture / Unknown 01/20/2020 4:45 AM CDT 01/20/2020 5:36 AM CDT Naveen Blackman MD LAB - CHEMISTRY DELFINO VIDAL [facility] Organization Address City/State/ZIP Co de Phone Number [facility] [address] [place] [address] * (ABNORMAL) RENAL FUNCTION PANEL (01/19/2020 3:50 AM CDT) Glucose 110(H) 70 - 105 mg/dL 01/19/2020 5:39 AM CDT [facility] Sodium 135(L) 136 - 145 mmol/L 01/19/2020 5:39 AM CDT [facility] Potassium 4.2 3.5 - 5.1 mmol/L 01/19/2020 5:39 AM CDT [facility] Chloride 94(L) 98 - 107 mmol/L 01/19/2020 5:39 AM CDT [facility] CO2 32(H) 23 - 31 mmol/L 01/19/2020 5:39 AM CDT [facility] Calcium 9.0 8.4 - 10.4 mg/dL 01/19/2020 5:39 AM CDT [facility] Anion Gap 9 8 - 16 mmol/L 01/19/2020 5:39 AM CDT [facility] BUN 33(H) 8.4 - 25.7 mg/dL 01/19/2020 5:39 AM CDT [facility] Creatinine 4.60(H) 0.72 - 1.25 mg/dL 01/19/2020 5:39 AM CDT [facility] Albumin 3.5 3.2 - 4.6 gm/dL 01/19/2020 5:39 AM CDT [facility] Phosphorus 2.8 2.3 - 4.7 mg/dL 01/19/2020 5:39 AM CDT [facility] eGFR by MDRD 13 mL/min/1.7 3m2 01/19/2020 5:39 AM CDT [facility] eGFR by MDRD 15 mL/min/1.7 3m2 01/19/2020 5:39 AM CDT [facility] Blood BLOOD SPECIMEN / Unknown Venipuncture / Unknown 01/19/2020 3:50 AM CDT 01/19/2020 5:13 AM CDT Naveen Blackman MD LAB - CHEMISTRY DELFINO VIDAL [facility] Organization Address City/State/ZIP Co de Phone Number [facility] [address] [place] [address] * (ABNORMAL) RENAL FUNCTION PANEL (01/18/2020 3:07 AM CDT) Glucose 121(H) 70 - 105 mg/dL 01/18/2020 4:07 AM CDT [facility] Sodium 140 136 - 145 mmol/L 01/18/2020 4:07 AM CDT [facility] Potassium 4.0 3.5 - 5.1 mmol/L 01/18/2020 4:07 AM CDT [facility] Chloride 101 98 - 107 mmol/L 01/18/2020 4:07 AM CDT [facility] CO2 28 23 - 31 mmol/L 01/18/2020 4:07 AM CDT [facility] Calcium 8.7 8.4 - 10.4 mg/dL 01/18/2020 4:07 AM CDT [facility] Anion Gap 11 8 - 16 mmol/L 01/18/2020 4:07 AM CDT [facility] BUN 58(H) 8.4 - 25.7 mg/dL 01/18/2020 4:07 AM CDT [facility] Creatinine 7.47(H) 0.72 - 1.25 mg/dL 01/18/2020 4:07 AM CDT [facility] Albumin 3.2 3.2 - 4.6 gm/dL 01/18/2020 4:07 AM CDT [facility] Phosphorus 3.9 2.3 - 4.7 mg/dL 01/18/2020 4:07 AM CDT [facility] eGFR by MDRD 7 mL/min/1.7 3m2 01/18/2020 4:07 AM CDT [facility] eGFR by MDRD 9 mL/min/1.7 3m2 01/18/2020 4:07 AM CDT [facility] Blood BLOOD SPECIMEN / Unknown Venipuncture / Unknown 01/18/2020 3:07 AM CDT 01/18/2020 3:41 AM CDT Naveen Blackman MD LAB - CHEMISTRY DELFINO VIDAL [facility] [address] [place] [address] * TSH REFLEX FREE T4 (01/18/2020 3:07 AM CDT) TSH 0.392 0.350 - 4.940 uIU/mL 01/18/2020 4:29 AM CDT [facility] Blood BLOOD SPECIMEN / Unknown Venipuncture / Unknown 01/18/2020 3:07 AM CDT 01/18/2020 3:41 AM CDT Darwin Ridley MD LAB - CHEMISTRY DELFINO VIDAL [facility] Organization Address City/State/ZIP Co de Phone Number [facility] [address] [place] [address] * ECHOCARDIOGRAM 2D WITH DOPPLER (01/17/2020 8:30 AM CDT) 01/17/2020 8:30 AM CDT Narrative Procedure Note Lorenzo Quintero MD - 01/19/[address] [place] [address] Echocardiography Examination Transthoracic Name: FERDINAND RASMUSSEN [facility]#: MR#: [id number] Admission Number: [id number] Study Date: 01/19/2020 Study Time: 09:11 AM Date Of : 1945 Age: 74 years Height: 62 in. (157.5 cm) Weight: 138.01 lbs. (62.60 kg) BSA: 1.63 m2 Gender: Male Blood Pressure: 147 mmHg / 51 mmHg Heart Rate: 80 bpm Exam Details Procedure Ordered: ECHOCARDIOGRAM 2D W/DOPPLER Procedure Components: Complete 2D, M-mode, complete spectral Doppler, color Doppler Procedure Status: Routine study Facility Location: [facility] Indication: Atrial Fibrillation Procedure Pe Manager: Pavel Pimentel RDCS Ordering Provider: Kwame Berg MD Reading Physician: Lorenzo Quintero MD Ordering Provider: Mana Oliva MD Reading Group: [facility] Conclusions Left Ventricle: ? ? Left [...] evaluated by biplane method of disks. Patient: FERDINAND RASMUSSEN Study Date: 01/19/2020 09:11 [...] visual 60 % (55% - 75%) Patient: FERDINAND RASMUSSEN Study Date: 01/19/2020 09:11 [...] 300 ms Function Mitral Valve MV Dec Hodgeman 1.84 m/s?? Pulmonic Valve PV PGmax 9 mmHg Pulmonic Valve PV Vmax, Caliper 1.51 m/s (0.6m/s - 0.9m/s) (No Signature Object) Patient: FERDINAND RASMUSSEN Study Date: 01/19/2020 09:11 AM Page 3 of 3 Kwame Berg MD ECHO ORDERABLES [facility] * (ABNORMAL) RENAL FUNCTION PANEL (01/17/2020 4:31 AM CDT) Glucose 116(H) 70 - 105 mg/dL 01/17/2020 5:34 AM CDT [facility] Sodium 140 136 - 145 mmol/L 01/17/2020 5:34 AM CDT [facility] Potassium 3.9 3.5 - 5.1 mmol/L 01/17/2020 5:34 AM CDT [facility] Chloride 99 98 - 107 mmol/L 01/17/2020 5:34 AM CDT [facility] CO2 30 23 - 31 mmol/L 01/17/2020 5:34 AM CDT [facility] Calcium 8.4 8.4 - 10.4 mg/dL 01/17/2020 5:34 AM CDT [facility] Anion Gap 11 8 - 16 mmol/L 01/17/2020 5:34 AM CDT [facility] BUN 44(H) 8.4 - 25.7 mg/dL 01/17/2020 5:34 AM CDT [facility] Creatinine 6.02(H) 0.72 - 1.25 mg/dL 01/17/2020 5:34 AM CDT [facility] Albumin 3.1(L) 3.2 - 4.6 gm/dL 01/17/2020 5:34 AM CDT [facility] Phosphorus 3.6 2.3 - 4.7 mg/dL 01/17/2020 5:34 AM CDT [facility] eGFR by MDRD 9 mL/min/1.7 3m2 01/17/2020 5:34 AM CDT [facility] eGFR by MDRD 11 mL/min/1.7 3m2 01/17/2020 5:34 AM CDT [facility] Blood BLOOD SPECIMEN / Unknown Venipuncture / Unknown 01/17/2020 4:31 AM CDT 01/17/2020 4:56 AM CDT Naveen Blackman MD LAB - CHEMISTRY DELFINO VIDAL [facility] Organization Address City/State/ZIP Co de Phone Number [facility] [address] [place] [address] * (ABNORMAL) RENAL FUNCTION PANEL (01/16/2020 4:21 AM CDT) Glucose 110(H) 70 - 105 mg/dL 01/16/2020 4:47 AM CDT [facility] Sodium 137 136 - 145 mmol/L 01/16/2020 4:47 AM CDT [facility] Potassium 3.7 3.5 - 5.1 mmol/L 01/16/2020 4:47 AM CDT [facility] Chloride 99 98 - 107 mmol/L 01/16/2020 4:47 AM CDT [facility] CO2 31 23 - 31 mmol/L 01/16/2020 4:47 AM CDT [facility] Calcium 8.4 8.4 - 10.4 mg/dL 01/16/2020 4:47 AM CDT [facility] Anion Gap 7(L) 8 - 16 mmol/L 01/16/2020 4:47 AM CDT [facility] BUN 23 8.4 - 25.7 mg/dL 01/16/2020 4:47 AM CDT [facility] Creatinine 3.89(H) 0.72 - 1.25 mg/dL 01/16/2020 4:47 AM CDT [facility] Albumin 3.1(L) 3.2 - 4.6 gm/dL 01/16/2020 4:47 AM CDT [facility] Phosphorus 2.9 2.3 - 4.7 mg/dL 01/16/2020 4:47 AM CDT [facility] eGFR by MDRD 15 mL/min/1.7 3m2 01/16/2020 4:47 AM CDT [facility] eGFR by MDRD 18 mL/min/1.7 3m2 01/16/2020 4:47 AM T [facility] Blood BLOOD SPECIMEN / Unknown Venipuncture / Unknown 01/16/2020 4:21 AM CDT 01/16/2020 4:24 AM CDT Naveen Blackman MD LAB - CHEMISTRY DELFINO VIDAL [facility] Organization Address City/State/ZIP Co de Phone Number [facility] [address] [place] [address] * GLUCOSE - POINT OF CARE (01/15/2020 11:34 AM CDT) [facility] Glucose WB/POC 99 70 - 106 mg/dL 01/16/2020 7:24 AM T [facility] Specimen Type Arterial/C apillary 01/16/2020 7:24 AM CDT [facility] Blood BLOOD SPECIMEN / Unknown 01/15/2020 11:34 AM CDT 01/16/2020 7:24 AM CDT Dylon Agudelo MD LAB - POINT OF CARE ORDERABLES Performing Organization Address [facility] de Phone Number [facility] [address] [place] [address] [place], [place] [phone] * GLUCOSE - POINT OF CARE (01/15/2020 7:34 AM CDT) Glucose WB/POC 104 70 - 106 mg/dL 01/16/2020 7:24 AM CDT [facility] Specimen Type Arterial/C apillary 01/16/2020 7:24 AM CDT [facility] Blood BLOOD SPECIMEN / Unknown 01/15/2020 7:34 AM CDT 01/16/2020 7:24 AM CDT Dylon Agudelo MD LAB - POINT OF CARE ORDERABLES Performing Organization Address [facility] de Phone Number [facility] [id number] [place] [phone] * (ABNORMAL) RENAL FUNCTION PANEL (01/15/2020 4:06 AM CDT) Glucose 112(H) 70 - 105 mg/dL 01/15/2020 4:37 AM CDT [facility] Sodium 133(L) 136 - 145 mmol/L 01/15/2020 4:37 AM CDT [facility] Potassium 3.9 3.5 - 5.1 mmol/L 01/15/2020 4:37 AM CDT [facility] Chloride 93(L) 98 - 107 mmol/L 01/15/2020 4:37 AM CDT [facility] CO2 25 23 - 31 mmol/L 01/15/2020 4:37 AM CDT [facility] Calcium 8.3(L) 8.4 - 10.4 mg/dL 01/15/2020 4:37 AM CDT [facility] Anion Gap 15 8 - 16 mmol/L 01/15/2020 4:37 AM CDT [facility] BUN 46(H) 8.4 - 25.7 mg/dL 01/15/2020 4:37 AM CDT [facility] Creatinine 7.38(H) 0.72 - 1.25 mg/dL 01/15/2020 4:37 AM CDT [facility] Albumin 3.1(L) 3.2 - 4.6 gm/dL 01/15/2020 4:37 AM CDT [facility] Phosphorus 6.0(H) 2.3 - 4.7 mg/dL 01/15/2020 4:37 AM CDT [facility] eGFR by MDRD 7 mL/min/1.7 3m2 01/15/2020 4:37 AM CDT [facility] eGFR by MDRD 9 mL/min/1.7 3m2 01/15/2020 4:37 AM CDT [facility] Blood BLOOD SPECIMEN / Unknown Venipuncture / Unknown 01/15/2020 4:06 AM CDT 01/15/2020 4:10 AM CDT Naveen Blackman MD LAB - CHEMISTRY EDLFINO VIDAL Performing Organization Address City/[facility] Co de Phone Number [facility] [address] [place] [address] [place], [place] [phone] * (ABNORMAL) GLUCOSE - POINT OF CARE (01/14/2020 7:48 PM CDT) Glucose WB/POC 157(H) 70 - 106 mg/dL 01/16/2020 7:24 AM CDT [facility] Specimen Type Arterial/C apillary 01/16/2020 7:24 AM CDT [facility] Blood BLOOD SPECIMEN / Unknown 01/14/2020 7:48 PM CDT 01/16/2020 7:24 AM CDT Dylon Agudelo MD LAB - POINT OF CARE ORDERABLES Performing Organization Address [facility] Co de Phone Number [facility] [address] [address] [place], [place] [phone] * GLUCOSE - POINT OF CARE (01/14/2020 4:51 PM CDT) Glucose WB/POC 92 70 - 106 mg/dL 01/16/2020 7:24 AM CDT [facility] Specimen Type Arterial/C apillary 01/16/2020 7:24 AM CDT [facility] Blood BLOOD SPECIMEN / Unknown 01/14/2020 4:51 PM CDT 01/16/2020 7:24 AM CDT Dylon Agudelo MD LAB - POINT OF CARE ORDERABLES Performing Organization Address City/[facility]/ZIP Co de Phone Number [facility] [address] [place] [phone] * (ABNORMAL) GLUCOSE - POINT OF CARE (01/14/2020 12:07 PM CDT) Glucose WB/POC 110(H) 70 - 106 mg/dL 01/16/2020 7:25 AM CDT [facility] Specimen Type Arterial/C apillary 01/16/2020 7:25 AM CDT [facility] Blood BLOOD SPECIMEN / Unknown 01/14/2020 12:07 PM CDT 01/16/2020 7:25 AM CDT Dylon Agudelo MD LAB - POINT OF CARE ORDERABLES Performing Organization Address [facility] Co de Phone Number [facility] [phone] [place] [phone] * (ABNORMAL) GLUCOSE - POINT OF CARE (01/14/2020 7:33 AM CDT) Glucose WB/POC 126(H) 70 - 106 mg/dL 01/16/2020 7:25 AM CDT [facility] Specimen Type Arterial/C apillary 01/16/2020 7:25 AM CDT [facility] Blood BLOOD SPECIMEN / Unknown 01/14/2020 7:33 AM CDT 01/16/2020 7:25 AM CDT Dylon Agudelo MD LAB - POINT OF CARE ORDERABLES Performing Organization Address [facility] Co de Phone Number [facility] [phone] [place] [phone] * (ABNORMAL) RENAL FUNCTION PANEL (01/14/2020 5:07 AM CDT) Pathologist [facility] Glucose 106(H) 70 - 105 mg/dL 01/14/2020 5:56 AM CDT [facility] Sodium 133(L) 136 - 145 mmol/L 01/14/2020 5:56 AM CDT [facility] Potassium 4.2 3.5 - 5.1 mmol/L 01/14/2020 5:56 AM CDT [facility] Chloride 94(L) 98 - 107 mmol/L 01/14/2020 5:56 AM CDT [facility] CO2 28 23 - 31 mmol/L 01/14/2020 5:56 AM CDT [facility] Calcium 8.5 8.4 - 10.4 mg/dL 01/14/2020 5:56 AM CDT [facility] Anion Gap 11 8 - 16 mmol/L 01/14/2020 5:56 AM CDT [facility] BUN 28(H) 8.4 - 25.7 mg/dL 01/14/2020 5:56 AM CDT [facility] Creatinine 5.47(H) 0.72 - 1.25 mg/dL 01/14/2020 5:56 AM CDT [facility] Albumin 3.4 3.2 - 4.6 gm/dL 01/14/2020 5:56 AM CDT [facility] Phosphorus 5.2(H) 2.3 - 4.7 mg/dL 01/14/2020 5:56 AM CDT [facility] eGFR by MDRD 10 mL/min/1.7 3m2 01/14/2020 5:56 AM CDT [facility] eGFR by MDRD 12 mL/min/1.7 3m2 01/14/2020 5:56 AM T [facility] Blood BLOOD SPECIMEN / Unknown Venipuncture / Unknown 01/14/2020 5:07 AM CDT 01/14/2020 5:12 AM CDT Naveen Blackman MD LAB - CHEMISTRY DELFINO VIDAL [facility] Organization Address City/State/ZIP Co de Phone Number [facility] [address] [place] [address] * POTASSIUM BLOOD (01/13/2020 9:58 PM CDT) [facility] Potassium 4.2 3.5 - 5.1 mmol/L 01/13/2020 10:25 PM CDT [facility] Blood BLOOD SPECIMEN / Unknown Venipuncture / Unknown 01/13/2020 9:58 PM CDT 01/13/2020 10:12 PM CDT Naveen Blackman MD LAB - CHEMISTRY DELFINO VIDAL Performing Organization Address [facility] Co de Phone Number [facility] [phone] [place] [phone] * (ABNORMAL) GLUCOSE - POINT OF CARE (01/13/2020 9:23 PM CDT) Pathologist [facility] Glucose WB/POC 138(H) 70 - 106 mg/dL 01/16/2020 7:25 AM CDT [facility] Specimen Type Arterial/C apillary 01/16/2020 7:25 AM CDT [facility] Blood BLOOD SPECIMEN / Unknown 01/13/2020 9:23 PM CDT 01/16/2020 7:25 AM CDT Dylon Agudelo MD LAB - POINT OF CARE ORDERABLES Performing Organization Address [facility] de Phone Number [facility] [phone] [place] [phone] * HEPATITIS B SURFACE ANTIGEN W RFLX CONFIRMATION (01/13/2020 8:34 AM CDT) Pathologist [facility] HBsAg Non Reactive Non Reactive 01/13/2020 9:32 AM CDT [facility] Blood BLOOD SPECIMEN / Unknown 01/13/2020 8:34 AM CDT 01/13/2020 8:34 AM CDT Naveen Blackman MD LAB - CHEMISTRY DELFINO VIDAL Performing Organization Address [facility] Co de Phone Number [facility] [phone] [place] [phone] * HEPATITIS B SURFACE ANTIBODY QUANT (01/13/2020 8:34 AM CDT) Pathologist [facility] Hepatitis B Virus Surface Antibody Quantitative 0.24 0.00 - 7.99 mIU/ml 01/13/2020 3:27 PM CDT [facility] HBsAb Non Reactive Non Reactive 01/13/2020 3:27 PM CDT [facility] Blood BLOOD SPECIMEN / Unknown 01/13/2020 8:34 AM CDT 01/13/2020 8:34 AM CDT Narrative [facility] - 01/13/2020 3:27 PM CDT Individual is considered not immune to HBV infection Naveen Blackman MD LAB - SEROLOGY ORDER SANDER [facility] [address] [place] [address] * (ABNORMAL) RENAL FUNCTION PANEL (01/13/2020 2:40 AM CDT) Glucose 124(H) 70 - 105 mg/dL 01/13/2020 3:14 AM CDT [facility] Sodium 137 136 - 145 mmol/L 01/13/2020 3:14 AM CDT [facility] Potassium 6.1(HH) 3.5 - 5.1 mmol/L 01/13/2020 3:14 AM CDT [facility] Chloride 100 98 - 107 mmol/L 01/13/2020 3:14 AM CDT [facility] CO2 25 23 - 31 mmol/L 01/13/2020 3:14 AM CDT [facility] Calcium 8.8 8.4 - 10.4 mg/dL 01/13/2020 3:14 AM CDT [facility] Anion Gap 12 8 - 16 mmol/L 01/13/2020 3:14 AM CDT [facility] BUN 56(H) 8.4 - 25.7 mg/dL 01/13/2020 3:14 AM CDT [facility] Creatinine 8.37(H) 0.72 - 1.25 mg/dL 01/13/2020 3:14 AM CDT [facility] Albumin 3.9 3.2 - 4.6 gm/dL 01/13/2020 3:14 AM CDT [facility] Phosphorus 5.4(H) 2.3 - 4.7 mg/dL 01/13/2020 3:14 AM CDT [facility] eGFR by MDRD 6 mL/min/1.7 3m2 01/13/2020 3:14 AM CDT [facility] eGFR by MDRD 8 mL/min/1.7 3m2 01/13/2020 3:14 AM CDT [facility] Blood BLOOD SPECIMEN / Unknown Venipuncture / Unknown 01/13/2020 2:40 AM CDT 01/13/2020 2:48 AM CDT Naveen Blackman MD LAB - CHEMISTRY DELFINO VIDAL Performing Organization Address [facility] Co de Phone Number [facility] [id number] [place] [phone] * (ABNORMAL) HGB HCT PANEL (01/12/2020 11:08 PM CDT) Hemoglobin 10.0(L) 12.0 - 17.6 gm/dL 01/12/2020 11:40 PM CDT [facility] Hematocrit 32.1(L) 35.2 - 51.7 % 01/12/2020 11:40 PM CDT [facility] Blood BLOOD SPECIMEN / Unknown Venipuncture / Unknown 01/12/2020 11:08 PM CDT 01/12/2020 11:32 PM CDT Dylon Agudelo MD LAB - HEMATOLOGY CONRADO KURTZ Performing Organization Address [facility] Co de Phone Number [facility] [address] [place] [address] [phone] * (ABNORMAL) BASIC METABOLIC PANEL (CALCIUM TOTAL) (01/12/2020 11:08 PM CDT) Glucose 127(H) 70 - 105 mg/dL 01/12/2020 11:57 PM CDT [facility] Sodium 140 136 - 145 mmol/L 01/12/2020 11:57 PM CDT [facility] Potassium 6.3(HH) 3.5 - 5.1 mmol/L 01/12/2020 11:57 PM CDT [facility] Chloride 102 98 - 107 mmol/L 01/12/2020 11:57 PM CDT [facility] CO2 26 23 - 31 mmol/L 01/12/2020 11:57 PM CDT [facility] Calcium 8.8 8.4 - 10.4 mg/dL 01/12/2020 11:57 PM CDT [facility] Anion Gap 12 8 - 16 mmol/L 01/12/2020 11:57 PM CDT [facility] BUN 55(H) 8.4 - 25.7 mg/dL 01/12/2020 11:57 PM CDT [facility] Creatinine 8.28(H) 0.72 - 1.25 mg/dL 01/12/2020 11:57 PM CDT [facility] eGFR by MDRD 6 mL/min/1.7 3m2 01/12/2020 11:57 PM CDT [facility] eGFR by MDRD 8 mL/min/1.7 3m2 01/12/2020 11:57 PM CDT [facility] Blood BLOOD SPECIMEN / Unknown Venipuncture / Unknown 01/12/2020 11:08 PM CDT 01/12/2020 11:31 PM CDT Dylon Agudelo MD LAB - CHEMISTRY DELFINO VIDAL Performing Organization Address [facility] Co de Phone Number [facility] [phone] [place] [address] [phone] * (ABNORMAL) GLUCOSE - POINT OF CARE (01/12/2020 5:33 PM CDT) Glucose WB/POC 111(H) 70 - 106 mg/dL 01/16/2020 7:24 AM CDT [facility] Specimen Type Arterial/C apillary 01/16/2020 7:24 AM CDT [facility] Blood BLOOD SPECIMEN / Unknown 01/12/2020 5:33 PM CDT 01/16/2020 7:24 AM CDT Dylon Agudelo MD LAB - POINT OF CARE ORDERABLES Performing Organization Address [facility] Co de Phone Number [facility] [address] [place], [place] [phone] * (ABNORMAL) GLUCOSE - POINT OF CARE (01/12/2020 12:30 PM CDT) Glucose WB/POC 117(H) 70 - 106 mg/dL 01/14/2020 7:06 AM CDT [facility] Specimen Type Arterial/C apillary 01/14/2020 7:06 AM CDT [facility] Blood BLOOD SPECIMEN / Unknown 01/12/2020 12:30 PM CDT 01/14/2020 7:06 AM CDT Dylon Agudelo MD LAB - POINT OF CARE ORDERABLES Performing Organization Address [facility] Co de Phone Number [facility] [id number] [place] [address] * (ABNORMAL) BASIC METABOLIC PANEL (CALCIUM TOTAL) (01/12/2020 8:56 AM CDT) [facility] Glucose 89 70 - 105 mg/dL 01/12/2020 9:18 AM CDT [facility] Sodium 139 136 - 145 mmol/L 01/12/2020 9:18 AM CDT [facility] Potassium 5.5(H) 3.5 - 5.1 mmol/L 01/12/2020 9:18 AM CDT [facility] Chloride 99 98 - 107 mmol/L 01/12/2020 9:18 AM CDT [facility] CO2 28 23 - 31 mmol/L 01/12/2020 9:18 AM CDT [facility] Calcium 9.8 8.4 - 10.4 mg/dL 01/12/2020 9:18 AM CDT [facility] Anion Gap 12 8 - 16 mmol/L 01/12/2020 9:18 AM CDT [facility] BUN 50(H) 8.4 - 25.7 mg/dL 01/12/2020 9:18 AM CDT [facility] Creatinine 7.67(H) 0.72 - 1.25 mg/dL 01/12/2020 9:18 AM CDT [facility] eGFR by MDRD 7 mL/min/1.7 3m2 01/12/2020 9:18 AM CDT [facility] eGFR by MDRD 8 mL/min/1.7 3m2 01/12/2020 9:18 AM CDT [facility] Blood BLOOD SPECIMEN / Unknown Venipuncture / Unknown 01/12/2020 8:56 AM CDT 01/12/2020 9:02 AM CDT Megan Ca DO LAB - CHEMISTRY DELFINO VIDAL Performing Organization Address City/[facility]/ZIP Co de Phone Number [facility] [id number] [place] [address] documented in this encounter Visit Diagnoses Not on filedocumented in this encounter Administered Medications Inactive Administered Medications - up to 3 most recent administrations Medication Order MAR Action Action Date Dose Rate Site acetaminophen (TYLENOL) tablet 650 mg 650 mg, Oral, EVERY 6 HOURS PRN, Fever, Mild Pain, Headache, Starting on Fri01/12/20 at 1544, Until Susan 01/20/20 at 1713, Post-op $ Given 01/20/2020 1:24 PM CDT 650 mg allopurinol (ZYLOPRIM) tablet 100 mg 100 mg, Oral, DAILY, First dose on Fri01/12/20 at 1945, Until Discontinued $ Given 01/20/2020 1:24 PM CDT 100 mg $ Given 01/19/2020 8:26 AM CDT 100 mg $ Given 01/18/2020 11:00 AM CDT 100 mg apixaban (ELIQUIS) tablet 2.5 mg 2.5 mg, Oral, 2 TIMES DAILY, 24 doses, First dose on Fri01/18/20 at 2100, Last dose on Fri01/30/20 at 0900 $ Given 01/20/2020 1:24 PM CDT 2.5 mg $ Given 01/19/2020 8:45 PM CDT 2.5 mg $ Given 01/19/2020 8:26 AM CDT 2.5 mg atorvastatin (LIPITOR) tablet 20 mg 20 mg, Oral, AT BEDTIME, First dose on Fri01/12/20 at 2100, Until Discontinued $ Given 01/19/2020 8:44 PM CDT 20 mg $ Given 01/18/2020 8:48 PM CDT 20 mg $ Given 01/17/2020 8:06 PM CDT 20 mg bisacodyl (DULCOLAX) suppository 10 mg 10 mg, Rectal, DAILY PRN, Constipation, Starting on Fri01/12/20 at 1544, Until Susan 01/20/20 at 1713, Use MOM first. If MOM ineffective then use bisacodyl. If bisacodyl ineffective use Fleets enema. Use rectally if oral is ineffective, or patient is unable to take oral medications, Post-op bisacodyl EC (DULCOLAX) tablet 5 mg 5 mg, Oral, DAILY PRN, Constipation, Starting on Fri01/12/20 at 1544, Until Fri01/20/20 at 1713, Use MOM first. If MOM ineffective then use bisacodyl. If bisacodyl ineffective use Fleets enema., Post-op bupivacaine 0.25% - EPINEPHrine 1:200,000 (PF) injection PRN, Starting on Fri01/12/20 at 1153, Until Fri01/12/20 at 1227, Intra-op $ Given 01/12/2020 11:53 AM CDT 30 mL Left Hip chlorhexidine gluconate (IRRISEPT) 0.05 % solution PRN, Starting on Fri01/12/20 at 1059, Until Fri01/12/20 at 1227, Intra-op $ Given 01/12/2020 10:59 AM CDT 450 mL Left Hip dilTIAZem coated beads 24hr (CARDIZEM CD) capsule 120 mg 120 mg, Oral, DAILY, First dose on Fri01/17/20 at 0900, Until Discontinued, Do not crush or chew. $ Given 01/20/2020 1:24 PM CDT 120 mg $ Given 01/19/2020 8:26 AM CDT 120 mg $ Given 01/18/2020 11:00 AM CDT 120 mg diphenhydrAMINE (BENADRYL) capsule 25 mg 25 mg, Oral, EVERY 6 HOURS PRN, Itching, Starting on Fri01/12/20 at 1544, Until Fri01/20/20 at 1713, Post-op $ Given 01/20/2020 1:33 PM CDT 25 mg docusate sodium (COLACE) capsule 100 mg 100 mg, Oral, 2 TIMES DAILY, First dose on Fri01/12/20 at 2100, Until Discontinued, Post-op $ Given 01/20/2020 1:29 PM CDT 100 mg $ Given 01/19/2020 8:44 PM CDT 100 mg $ Given 01/19/2020 8:26 AM CDT 100 mg epoetin ashly-EPBX (RETACRIT) injection 4,000 Units 4,000 Units, Subcutaneous, EVERY 7 DAYS, First dose on Fri01/13/20 at 0900, Until Discontinued, Hold if systolic BP greater than 160 or diastolic BP is greater than 90. Do not shake vial. Refrigerate $ Given 01/13/2020 7:58 PM CDT 4,000 Units Abd Left Lower Quadrant famotidine (PEPCID) tablet 20 mg 20 mg, Oral, DAILY, First dose (after last modification) on Fri01/15/20 at 0900, Until Discontinued, Post-op $ Given 01/20/2020 1:24 PM CDT 20 mg $ Given 01/19/2020 8:26 AM CDT 20 mg $ Given 01/18/2020 11:00 AM CDT 20 mg furosemide (LASIX) tablet 80 mg 80 mg, Oral, 2 TIMES DAILY, First dose on Fri01/12/20 at 2100, Until Discontinued $ Given 01/20/2020 1:28 PM CDT 80 m g $ Given 01/19/2020 8:44 PM CDT 80 mg $ Given 01/19/2020 8:26 AM CDT 80 mg HYDROcodone-acetaminophen (NORCO) 10-325 MG tablet 1 tablet 1 tablet, Oral, EVERY 4 HOURS PRN, Severe Pain, Starting on Fri01/12/20 at 1544, Until Susan 01/20/20 at 1713, Allow a repeat dose for severe pain? No, Post-op $ Given 01/13/2020 12:14 AM CDT 1 tablet HYDROcodone-acetaminophen (NORCO) 5-325 MG tablet 1 tablet 1 tablet, Oral, EVERY 4 HOURS PRN, Moderate Pain, Starting on Fri01/12/20 at 1544, Until Susan 01/20/20 at 1713, Post-op $ Given 01/17/2020 4:27 PM CDT 1 tablet lisinopril (PRINIVIL;ZESTRIL) tablet 5 mg 5 mg, Oral, DAILY, First dose on Fri01/12/20 at 1945, Until Discontinued $ Given 01/20/2020 1:25 PM CDT 5 mg $ Given 01/19/2020 8:26 AM CDT 5 mg $ Given 01/18/2020 11:01 AM CDT 5 mg magnesium hydroxide (MILK OF MAGNESIA) suspension 30 mL 30 mL, Oral, DAILY PRN, Constipation, Starting on Fri01/12/20 at 1544, Until Susan 01/20/20 at 1713, Use MOM first. If MOM ineffective then use bisacodyl. If bisacodyl ineffective use Fleets enema. Shake well before using., Post-op morphine (PF) injection PRN, Starting on Fri01/12/20 at 1153, Until Fri01/12/20 at 1227, Intra-op $ Given 01/12/2020 11:53 AM CDT 10 mg Left Hip NaCl 0.9 % irrigation PRN, Starting on Fri01/12/20 at 1118, Until Fri01/12/20 at 1227, Intra-op $ Given 01/12/2020 11:18 AM CDT 1,000 mL Left Hip ondansetron (disintegrating) (ZOFRAN ODT) tablet 4 mg 4 mg, Oral, EVERY 6 HOURS PRN, Nausea/Vomiting, Starting on Fri01/12/20 at 1544, Until Fri01/20/20 at 1713, Allow tablet to dissolve on the tongue, Post-op $ Given 01/18/2020 11:00 AM CDT 4 mg polyethylene glycol 3350 (MIRALAX) packet 17 g 17 g, Oral, DAILY, First dose on Fri01/12/20 at 1600, Until Discontinued, Mix in 8 ounces of water, juice, soda, coffee or tea prior to administration, Post-op $ Given 01/20/2020 7:57 AM CDT 17 g $ Given 01/16/2020 8:17 AM CDT 17 g $ Given 01/15/2020 8:21 AM CDT 17 g polymyxin B injection PRN, Starting on Fri01/12/20 at 1118, Until Fri01/12/20 at 1227, Intra-op $ Given 01/12/2020 11:18 AM CDT 500,000 Units rOPINIRole (REQUIP) tablet 0.5 mg 0.5 mg, Oral, AT BEDTIME, First dose on Fri01/12/20 at 2100, Until Discontinued $ Given 01/19/2020 8:44 PM CDT 0.5 mg $ Given 01/18/2020 8:48 PM CDT 0.5 mg $ Given 01/17/2020 8:06 PM CDT 0.5 mg sevelamer carbonate (RENVELA) tablet 800 mg 800 mg, Oral, 3 TIMES DAILY WITH MEALS, First dose on Fri01/13/20 at 0800, Until Discontinued, Swallow whole; Do not crush, chew, or break apart. $ Given 01/20/2020 11:16 AM CDT 800 mg $ Given 01/19/2020 5:37 PM CDT 800 mg $ Given 01/19/2020 11:36 AM CDT 800 mg sodium bicarbonate tablet 325 mg 325 mg, Oral, DAILY, First dose on Fri01/12/20 at 1945, Until Discontinued $ Given 01/20/2020 7:57 AM CDT 325 mg $ Given 01/19/2020 8:26 AM CDT 325 mg $ Given 01/18/2020 11:00 AM CDT 325 mg tamsulosin (FLOMAX) capsule 0.4 mg 0.4 mg, Oral, AT BEDTIME, First dose on Fri01/12/20 at 2100, Until Discontinued, At the same time every day after a meal. Do not crush, chew $ Given 01/19/2020 8:45 PM CDT 0.4 mg $ Given 01/18/2020 8:49 PM CDT 0.4 mg $ Given 01/17/2020 8:06 PM CDT 0.4 mg vancomycin (VANCOCIN) injection PRN, Starting on Fri01/12/20 at 1059, Until Fri01/12/20 at 1227, Intra-op $ Given 01/12/2020 10:59 AM CDT 1,000 mg Left Hip documented in this encounter Active and Recently Administered Medications Times are shown in CDT. Scheduled Medication Order 01/18/2020 01/19/2020 01/20/2020 allopurinol (ZYLOPRIM) tablet 100 mg 100 mg, Oral, DAILY, First dose on Fri01/12/20 at 1945, Until Discontinued 1100 ($ Given - Provider: Sonya Osborne RN) 0826 ($ Given - Provider: Tara Velez RN) 1324 ($ Given - Provider: Isabel Payan RN - Comment: Dialysis) apixaban (ELIQUIS) tablet 2.5 mg 2.5 mg, Oral, 2 TIMES DAILY, 24 doses, First dose on 01/18/20 at 2100, Last dose on 01/30/20 at 0900 2047 ($ Given - Provider: Sol Garay RN) 0826 ($ Given - Provider: Tara Velez RN)2044 ($ Given - Provider: Domi Michel) 1324 ($ Given - Provider: Isabel Payan RN - Comment: Dialysis) aspirin chew tablet 81 mg (CANCELED) 81 mg, Oral, 2 TIMES DAILY WITH MEALS, First dose on Fri01/12/20 at 1800, Until Discontinued, VTE Prophylaxis, post-op Hip, Post-op 1101 ($ Given - Provider: Sonya Osborne RN) atorvastatin (LIPITOR) tablet 20 mg 20 mg, Oral, AT BEDTIME, First dose on Fri01/12/20 at 2100, Until Discontinued 2047 ($ Given - Provider: Sol Garay, KAITLYNN) 2043 ($ Given - Provider: Domi Michel) dilTIAZem coated beads 24hr (CARDIZEM CD) capsule 120 mg 120 mg, Oral, DAILY, First dose on Fri01/17/20 at 0900, Until Discontinued, Do not crush or chew. 1100 ($ Given - Provider: Sonya Osborne RN) 0826 ($ Given - Provider: Tara Velez RN) 1324 ($ Given - Provider: Isable Payan RN - Comment: Dialysis) docusate sodium (COLACE) capsule 100 mg 100 mg, Oral, 2 TIMES DAILY, First dose on Fri01/12/20 at 2100, Until Discontinued, Post-op 1100 (Not Administered - Provider: Sonya Osborne RN - Reason: Refused-Patient)2047 ($ Given - Provider: Sol Garay, KAITLYNN) 0826 ($ Given - Provider: Taar Velez, KAITLYNN)2043 ($ Given - Provider: Domi Michel) 132 ($ Given - Provider: Isabel Payan, KAITLYNN - Comment: Dialysis) epoetin ashly-EPBX (RETACRIT) injection 4,000 Units 4,000 Units, Subcutaneous, EVERY 7 DAYS, First dose on Fri01/13/20 at 0900, Until Discontinued, Hold if systolic BP greater than 160 or diastolic BP is greater than 90. Do not shake vial. Refrigerate 0900 (Due) famotidine (PEPCID) tablet 20 mg 20 mg, Oral, DAILY, First dose (after last modification) on Fri01/15/20 at 0900, Until Discontinued, Post-op 1100 ($ Given - Provider: Sonya Osborne RN) 0826 ($ Given - Provider: Tara Velez, KAITLYNN) 1324 ($ Given - Provider: Isabel Payan RN - Comment: Dialysis) furosemide (LASIX) tablet 80 mg 80 mg, Oral, 2 TIMES DAILY, First dose on Fri01/12/20 at 2100, Until Discontinued 1100 ($ Given - Provider: Sonya Osborne RN)2047 ($ Given - Provider: Sol Garay RN) 08 ($ Given - Provider: Tara Velez, KAITLYNN)2043 ($ Given - Provider: Domi Michel) 132 ($ Given - Provider: Isabel Payan RN - Comment: pt at dialysis) lisinopril (PRINIVIL;ZESTRIL) tablet 5 mg 5 mg, Oral, DAILY, First dose on Fri01/12/20 at 1945, Until Discontinued 110 ($ Given - Provider: Sonya Osborne RN) 08 ($ Given - Provider: Tara Velez RN) 132 ($ Given - Provider: Isabel Payan RN - Comment: Dialysis) polyethylene glycol 3350 (MIRALAX) packet 17 g 17 g, Oral, DAILY, First dose on Fri01/12/20 at 1600, Until Discontinued, Mix in 8 ounces of water, juice, soda, coffee or tea prior to administration, Post-op 1059 (Not Administered - Provider: Sonya Osborne RN - Reason: Refused-Patient) 0827 (Not Administered - Provider: Tara Velez RN - Reason: Refused-Patient) 0757 ($ Given - Provider: Isabel Payan RN - Comment: dialysis) rOPINIRole (REQUIP) tablet 0.5 mg 0.5 mg, Oral, AT BEDTIME, First dose on Fri01/12/20 at 2100, Until Discontinued 2047 ($ Given - Provider: Sol Garay RN) 2043 ($ Given - Provider: Domi Michel) sevelamer carbonate (RENVELA) tablet 800 mg 800 mg, Oral, 3 TIMES DAILY WITH MEALS, First dose on Fri01/13/20 at 0800, Until Discontinued, Swallow whole; Do not crush, chew, or break apart. 1100 ($ Given - Provider: Sonya Osborne RN)1101 (Not Administered - Provider: Sonya Osborne RN - Reason: See Comments - Comment: in dialysis)1813 ($ Given - Provider: Sonya Osborne RN) 0826 ($ Given - Provider: Tara Velez RN)1136 ($ Given - Provider: Tara Velez, RN)1737 ($ Given - Provider: Tara Velez, RN) 0757 (Held - Provider: Isabel Payan RN - Reason: See Comments - Comment: dialysis)1116 ($ Given - Provider: Isabel Payan RN - Comment: pt at dialysis) sodium bicarbonate tablet 325 mg 325 mg, Oral, DAILY, First dose on Fri01/12/20 at 1945, Until Discontinued 1100 ($ Given - Provider: Sonya Osborne RN) 0826 ($ Given - Provider: Tara Velez, KAITLYNN) 0757 ($ Given - Provider: Isabel Payan RN - Comment: dialysis) tamsulosin (FLOMAX) capsule 0.4 mg 0.4 mg, Oral, AT BEDTIME, First dose on Fri01/12/20 at 2100, Until Discontinued, At the same time every day after a meal. Do not crush, chew 2048 ($ Given - Provider: Sol Garay RN) 2044 ($ Given - Provider: Domi Michel) PRN Medication Order 01/18/2020 01/19/2020 01/20/2020 acetaminophen (TYLENOL) tablet 650 mg 650 mg, Oral, EVERY 6 HOURS PRN, Fever, Mild Pain, Headache, Starting on Fri01/12/20 at 1544, Until Susan 01/20/20 at 1713, Post-op 1324 ($ Given - Provider: Isabel Payan RN) bisacodyl (DULCOLAX) suppository 10 mg(Linked Group 1) 10 mg, Rectal, DAILY PRN, Constipation, Starting on Fri01/12/20 at 1544, Until Susan 01/20/20 at 1713, Use MOM first. If MOM ineffective then use bisacodyl. If bisacodyl ineffective use Fleets enema. Use rectally if oral is ineffective, or patient is unable to take oral medications, Post-op bisacodyl EC (DULCOLAX) tablet 5 mg(Linked Group 1) 5 mg, Oral, DAILY PRN, Constipation, Starting on Fri01/12/20 at 1544, Until Susan 01/20/20 at 1713, Use MOM first. If MOM ineffective then use bisacodyl. If bisacodyl ineffective use Fleets enema., Post-op calcium carbonate (TUMS) chew tablet 2 tablet 2 tablet, Oral, EVERY 4 HOURS PRN, GI Upset, Starting on Fri01/12/20 at 1544, Until Susan 01/20/20 at 1713, Post-op diphenhydrAMINE (BENADRYL) capsule 25 mg 25 mg, Oral, EVERY 6 HOURS PRN, Itching, Starting on Fri01/12/20 at 1544, Until Susan 01/20/20 at 1713, Post-op 1333 ($ Given - Provider: Isabel Payan RN) HYDROcodone-acetaminophen (NORCO) 10-325 MG tablet 1 tablet 1 tablet, Oral, EVERY 4 HOURS PRN, Severe Pain, Starting on Fri01/12/20 at 1544, Until Susan 01/20/20 at 1713, Allow a repeat dose for severe pain? No, Post-op HYDROcodone-acetaminophen (NORCO) 5-325 MG tablet 1 tablet 1 tablet, Oral, EVERY 4 HOURS PRN, Moderate Pain, Starting on Fri01/12/20 at 1544, Until Susan 01/20/20 at 1713, Post-op magnesium hydroxide (MILK OF MAGNESIA) suspension 30 mL(Linked Group 1) 30 mL, Oral, DAILY PRN, Constipation, Starting on Fri01/12/20 at 1544, Until Susan 01/20/20 at 1713, Use MOM first. If MOM ineffective then use bisacodyl. If bisacodyl ineffective use Fleets enema. Shake well before using., Post-op naloxone (NARCAN) injection 0.4 mg 0.4 mg, Intravenous, PRN, Other, If unable or difficult to arouse patient, if respiratory depression is present (less than 8 breaths/min), or if SPO2 less than 93% (and patient was above this at baseline), Starting on Fri01/12/20 at 1544, Until Susan 01/20/20 at 1713, Mix 0.4 mg Naloxone in 9 mL Normal Saline for slow IV push. Administer dilute Naloxone solution IV very slowly (5 mL over 2 minutes) while observing the patient response and titrating to effect. If no response, call Rapid Response, continue IV Naloxone at the same rate up to a total of 0.8 mg or 20 mL of diluted Naloxone, and notify physician immediately., Post-op ondansetron (disintegrating) (ZOFRAN ODT) tablet 4 mg 4 mg, Oral, EVERY 6 HOURS PRN, Nausea/Vomiting, Starting on Fri01/12/20 at 1544, Until Susan 01/20/20 at 1713, Allow tablet to dissolve on the tongue, Post-op 1100 ($ Given - Provider: Sonya Osborne RN) throat lozenge 1 lozenge 1 lozenge, Oral, EVERY 2 HOURS PRN, Sore Throat, Starting on Fri01/12/20 at 1544, Until Susan 01/20/20 at 1713, Post-op zolpidem (AMBIEN) tablet 5 mg 5 mg, Oral, AT BEDTIME PRN, Insomnia, Starting on Susan 01/13/20 at 0000, Until Susan 01/20/20 at 1713, Post-op Linked Groups Order Group 1: magnesium hydroxide (MILK OF MAGNESIA) suspension 30 mLJump to med 30 mL, Oral, DAILY PRN, Constipation, Starting on Fri01/12/20 at 1544, Until Susan 01/20/20 at 1713, Use MOM first. If MOM ineffective then use bisacodyl. If bisacodyl ineffective use Fleets enema. Shake well before using., Post-op Or bisacodyl EC (DULCOLAX) tablet 5 mgJump to med 5 mg, Oral, DAILY PRN, Constipation, Starting on Fri01/12/20 at 1544, Until Susan 01/20/20 at 1713, Use MOM first. If MOM ineffective then use bisacodyl. If bisacodyl ineffective use Fleets enema., Post-op Or bisacodyl (DULCOLAX) suppository 10 mgJump to med 10 mg, Rectal, DAILY PRN, Constipation, Starting on Fri01/12/20 at 1544, Until Susan 01/20/20 at 1713, Use MOM first. If MOM ineffective then use bisacodyl. If bisacodyl ineffective use Fleets enema. Use rectally if oral is ineffective, or patient is unable to take oral medications, Post-op Or sodium phosphate rectal (FLEET) enema 133 mL (CANCELED) 133 mL (1 enema), Rectal, DAILY PRN, Constipation, Starting on 01/12/20 at 1544, Until Susan 01/13/20 at 0142, Use MOM first. If MOM ineffective then use bisacodyl. If bisacodyl ineffective use Fleets enema., Post-op documented in this encounter Care Teams Landscape Architecture Teacher Relationship Specialty Start Date End Date Kwame Berg MD PCP - General Internal Medicine 01/19/19 [place] [id number] [id number] Orthopedic Surgery Orthopedic Surgery 10/13/19 documented as of this encounter
--- OUTSIDE RECORDS SUMMARY | 2024-04-25 21:20 | XMS_ITS | Encounter Summary ---
Author Organization [facility] Address [address] [facility] [place] [address] Care Team Providers Care Senior Software Engineering Manager Name Role Phone Kwame Berg MD Primary Care Provider [phone] Dylon Agudelo MD Unavailable Reason for Visit * Auth/Cert Specialty Diagnoses / Procedures Referred By Contac t Referred To Contact Procedures ARTHROPLASTY TOTAL HIP Referral ID Status Reason Start Date Expiration Date Visits Re quested Visits Authorized [id number] 1 1 Encounter Details Date Type Department Care Team (Late st Contact Info) Description 01/12/2020 10:00 AM CDT Anesthesia Event [facility] - Perioperative Surgery [id number] [place] [id number] Mario Rodriguez MD [address] [place] [address] [place], [place] [id number] Anesthesia Record Procedure Summary Procedure Name Responsible Anesthesiologist Anesthesia Start Time Anesthesia Stop Time LEFT POSTERIOR ARTHROPLASTY TOTAL HIP (Hip) Mario Rodriguez MD 01/12/20 1000 01/12/20 1237 Events Date Time Event Comment 01/12/2020 0944 1000 An Start Preop- pt inter viewed, anesthesia plan reviewed. Please refer to dr rodriguez note about pt anesthetic risk discussion. Pt and pt nephew agree with plan, wish to proceed. Nka Pt w dialysis yesterday. K to day 5.5 1003 An Start Data To OR#15 asa m onitors on preo2. 1009 Induction Smooth slow, CA REFULLY TITRATED. Pb stable, pt tolerated well. 1012 An Intubation Easy, excellen t view. 0 changes to oc 1017 Pt Repositioned Turned left side up on peg board, ax roll in place, pressure pts checked/rechecked. Padding checked/rechecked. Head/neck neutral position. 1033 Timeout Anesthesia part icipated in timeout at the time documented in the record by nursing. 1038 an jeff now Incision -vss 1121 Quick Note Ek decreases bp frequency to 5 min from 2.5. bp stable, decrease compression interval to arm. 1206 An Emergence Spontaneous res ps tv 400's rr 16, spo2 99 responds to verbal commands 1218 Extubation vss 1225 an stop data 1225 ANPTO2 Fm 02 8 l 1237 An Stop Meds Name Total vancomycin (VANCOCIN) 1,000 mg in 200 mL IVPB 2,000 mg ceFAZolin (ANCEF) 2,000 mg in 50 ml IVPB 2 g fentaNYL 100 mcg/2mL injection 175 mcg etomidate 20 mg/10mL injection 14 mg midazolam 2 mg/2mL injection 1 mg neostigmine 10 mg/10mL injection 4 mg glycopyrrolate 0.4 mg/2mL injection 0.6 mg ondansetron 4 mg/2mL injection 4 mg cisatracurium 10 mg/5mL injection 8 mg lidocaine 1% (PF) injection (10 mg/mL) 8 0 mg dexamethasone 4 mg/mL injection 4 mg tranexamic acid 1000 mg/10mL injection 3 00 mg metoprolol 5 mg/5mL injection 5 mg phenylephrine 100 mcg/mL solution 200 mc g ePHEDrine 50 mg/mL injection 10 mg 0.9% NaCl infusion 600 mL * Agents Name Exp. Sevoflurane Exp. N2O O2 Insp. Sevoflurane * Blood No blood administrations on file. Lines, Drains, and Airways Type Details Placement Removal Hemodialysis AV Access 10/20/19; 1426; Fistula; Right Upper Arm 10/20/19 1426 by Clare Mann RN Hemodialysis Tunneled Catheter Subclavian (Right); 05/03/20 10/20/19 1038 by 05/03/20 0000 by Danisha Roman RN Peripheral IV Date: 01/12/20; Orientation: Left; Placed By: CAME FROM OR WITH IV 01/12/20 0000 by Sol Kramer RN 01/13/20 1500 by Sonya Osborne RN Drain 01/12/20; ARRIVED FR OM OR WITH DRAIN IN PLACE; 1; Other (comments) (HEMOVAC); Accordian; Anterior, Left, Upper; Hip; 01/14/20; 0600; Per order; Domi CALDERÓN 01/12/20 0000 by Sol Kramer RN 01/14/20 0600 by Domi Michel RN Peripheral IV Date: 01/12/20; Time : 0859; Orientation: Right; Placed By: Charlotte Pulido RN; Tolerance: Well 01/12/20 0859 by Charlotte Ndiaye RN 01/13/20 0030 by Gabriela Rivas RN ETT Date: 01/12/20; Time : 1012; Placed By: rivka chiang; Vent: easy mask; Induction: Standard IV; Blade Type: Gal; Blade Size: 4; Laryngoscopy View: Grade 1 (full cords); Intubation Adjuncts: Stylet; Tube: Endotracheal Tube; Placement: Oral; Tube Type: Cuffed-inflated; Tube Size(mm): 8 MM; Depth of Insertion: 20 CM; Measured From: lips; Attempts: 1; Cuff Infated: Air; Cuff Vol(mL): 6 mL; Verified By: Direct visualization, Bilateral breath sounds, CO2 Monitor 01/12/20 1012 by Adrianna Cisneros APRN-CRNA 01/12/20 1218 by Adrianna Cisneros APRN-CRNA Procedural Site (Incision) 01/12/20; 1038; Left; Hip; 01/20/20; 2308 01/12/20 1038 by Christina Stiles RN 01/20/20 2308 by Generic, Auto Release documented in this [...] AM CDT documented as of this encounter Progress Notes * KoAdrianna Arnold APRN-ERNESTO - 01/12/2020 12:37 PM CDT ANESTHESIA POSTOP EVALUATION NOTE Procedure: LEFT POSTERIOR ARTHROPLASTY TOTAL HIP (Hip) Jlues Mitchell is a 74 year old male Patient Vitals for the past 6 hrs: BP Temp Pulse Resp SpO2 Pain Scale/Observation 01/12/20 0917 127/53 98.4 ??F (36.9 ??C) 71 16 97 % No/denies pain;N Anesthesia Type: general ETT * No Diagnosis Codes entered * Mental Status: awake Neuro Status: No numbness, tingling or visual disturbances Respiratory Function: natural Cardiac Function: stable Postop Pain: acceptable to the patient Postop Hydration: adequate Postop Nausea: none Assessment: no apparent anesthetic complications, patient tolerated procedure well and no evidence of recall Patient Disposition: Release from Anesthesia Care Non Reportable Improvement Section (otherwise blank): * Mario Rodriguez MD - 01/12/2020 9:07 AM CDT ANESTHESIA PREOPERATIVE EVALUATION NOTE Procedure: LEFT POSTERIOR ARTHROPLASTY TOTAL HIP (Hip) NPO status: Since Midnight (01/12/2020 9:03 AM) Vitals: No data found. ANESTHESIA PRE-EVALUATION NOTE Physical Exam: Orientation X3 Airway/Mallampati Score: II Mouth Opening Distance: 3.5 fingerwidths Neck ROM: full Teeth: normal Heart: normal - S1 S2 Lungs: clear to ausculation bilaterally Review of Systems: History of anesthetic complications: No Renal Disease: Yes, patient on regularly scheduled dialysis Diagnostic Tests: ECG(s) reviewed: Yes Lab(s) reviewed: Yes. ANESTHESIA PLAN ASA Score: 4 NPO Status: No solids since midnight and No liquids within 2 hours Anesthesia Plan: general ETT Planned Induction: intravenous Planned Postop Destination: PACU Anesthetic plan was discussed with: patient Anesthetic Plan discussion was: Consented The patient's procedural Anesthetic Plan was discussed with the ROLLED GLASS CROSSCUTTER and anesthesiologist. Overall additional findings/comments: I discussed the patients planned procedure, risks, benefits and alternative to general anesthesia. Discussed dental/oropharyngeal injury, pain, and nausea/vomitting. Patient deferred discussion of serious risks. I have informed the patient that the anesthetic wi ll be provided by a nurse commercial marketing specialist in the operating room/procedure suite. I answered any questions and the patient elected to proceed. Patient recently canceled for hyperkalemia. Patient states he was dialyzed yesterday. BMP pending, will plan from there.. BMI, Height, Weight Tobacco History Estimated body mass index is 25.31 kg/m?? as calculated from the following: Height as of this encounter: 1.575 m (5' 2). Weight as of this encounter: 62.8 kg (138 lb 6.4 oz). Social History Tobacco Use Smoking Status Former Smoker ??? Last attempt to quit: 10/12/2012 ??? Years since quittin.2 Smokeless Tobacco Never Used Alcohol History Drug History Social History Substance and Sexual Activity Alcohol Use Not Currently Social History Substance and Sexual Activity Drug Use Never Outpatient Medications: Inpatient Medications: Outpatient Medications Marked as Taking for the 01/12/20 encounter (Hospital Encounter) Medication Sig Last Dose ??? atorvastatin Take 20 mg by mouth at bedtime 01/10/2020 at Unknown time ??? lisinopril Take 5 mg by mouth once daily 01/10/2020 at Unknown time ??? sodium bicarbonate Take 325 mg by mouth once daily 01/11/2020 at Unknown time ??? traMADol Take 1 tablet by mouth 2 times daily as needed for Pain 01/11/2020 at Unknown time Current Facility-Administered Medications Medication Dose Last Dose ??? 0.9% NaCl IV ??? 0.9% NaCl 1,000 mL ??? ceFAZolin 2 g ??? scopolamine 1 patch 1 patch at 01/12/20 0851 And ??? scopolamine patch placement confirmation ??? vancomycin 1,000 mg Allergies: No Known Allergies Relevant Problems No [...] ??? ESRD (end stage renal disease) Evelyn quarles,sat 11/2419 ??? ESRD on dialysis ??? High blood pressure ??? Pure hypercholesterolemia ??? Stroke per pt Surgical History: Past Surgical History: Procedure Laterality Date ??? INSERTION DIALYSIS CATHETER Right 04/2019 r chest tunneled cath ??? OTHER SURGERY Testicular surgery per nephew but not positive? VASCULAR PROCEDURE/SURGERY 10/20/2019 RIGHT UPPER ARM ARTERIOVENOUS FISTULA Lab Results: Recent Labs Component Name 12/10/19 1049 WBC 4.0* RBC 3.28* HCT 35.1* HGB 11.2* PLTCOUNT 156 MCV 107.0* MCH 34.1* MCHC 31.9 MPV 8.9* Recent Labs Component Name 12/27/19 0837 12/27/19 0734 SODIUM - 140 POTASSIUM 6.2* 6.3* CALCIUM - 9.7 CHLORIDE - 98 CO2 - 29 GLUCOSE - 88 BUN - 47* CREATININE - 7.69* Invalid input(s): PREGTESTUR Recent Labs Component Name 12/27/19 0734 10/13/19 1215 ALT 8 - - AST 12 - - ALKPHOS 62 - - ANIONGAP 13 - - EGFR 7 - - ALBUMIN 4.4 - 3.9 FERRITIN - - 4,981* IRON - - 114 TIBC - - 172* FESAT - - 66* - = values in this interval not displayed. documented in this encounter Miscellaneous Notes * Addendum Note - Adrianna Cisneros APRN-CRNA - 01/12/2020 12:44 PM CDT Addendum created 01/12/20 1244 by Adrianna Cinseros APRN-CRNA Intraprocedure Meds edited * Anesthesia Transfer of Care - Adrianna Cisneros APRN-CRNA - 01/12/2020 12:37 PM CDT ANESTHESIA TRANSFER OF CARE NOTE Today's Date: 01/12/2020 Date of : 1945 Patient: Jules Mitchell Procedure(s): LEFT POSTERIOR ARTHROPLASTY TOTAL HIP Surgeon(s): Primary: Dylon Agudelo MD Preop Diagnosis: * No Diagnosis Codes entered * Pre-op Meds (From admission, onward) Start Stop Status Route Frequency Ordered 01/12/20 0900 0.9% NaCl infusion 01/11 0859 Dispensed IV PRE-OP CONTINUOUS 01/12/20 0847 01/12/20 0900 0.9% NaCl IV Bolus 01/11 2059 Dispensed IV ONCE 01/12/20 0847 01/12/20 0900 acetaminophen (TYLENOL) tablet 1,000 mg 01/11 0850 Completed PO PRE-OP ONCE 01/12/20 0847 01/12/20 0847 ceFAZolin (ANCEF) 2,000 mg in 50 ml IVPB 01/18 0846 Verified IV PRE-OP MULTIPLE 01/12/20 0847 01/12/20 0900 celecoxib (CeleBREX) capsule 400 mg 01/11 0851 Completed PO PRE-OP ONCE 01/12/20 0847 01/12/20 1009 cisatracurium (NIMBEX) injection -- Sent PRN 01/12/20 1050 01/12/20 1015 dexamethasone (DECADRON) injection -- Sent PRN 01/12/20 1051 01/12/20 1203 ePHEDrine injection -- Sent PRN 01/12/20 1205 01/12/20 1009 etomidate (AMIDATE) injection -- Sent PRN 01/12/20 1050 01/12/20 1009 fentaNYL (PF) (SUBLIMAZE) injection -- Sent PRN 01/12/20 1050 01/12/20 1207 glycopyrrolate (ROBINUL) injection -- Sent PRN 01/12/20 1207 01/12/20 1009 lidocaine PF (XYLOCAINE MPF) 1 % injection -- Sent PRN 01/12/20 1051 01/12/20 0900 lidocaine PF (XYLOCAINE MPF) 1 % injection 0.5 mL 01/11 0852 Completed INFILTRATION PRE-OP ONCE 01/12/20 0847 01/12/20 0900 metoclopramide (REGLAN) tablet 10 mg 01/11 0851 Completed PO ONCE 01/12/20 0847 01/12/20 1024 metoprolol (LOPRESSOR) injection -- Sent PRN 01/12/20 1055 01/12/20 1001 midazolam (VERSED) injection -- Sent PRN 01/12/20 1050 01/12/20 1207 neostigmine injection -- Sent PRN 01/12/20 1207 01/12/20 1200 ondansetron (ZOFRAN) injection -- Sent PRN 01/12/20 1217 01/12/20 1151 phenylephrine 100 mcg/mL injection -- Sent PRN 01/12/20 1155 01/12/20 0900 povidone-iodine (BETADINE) 5 % solution 01/11 08 Completed NA PRE-OP ONCE 01/12/20 0847 01/12/20 09 pregabalin (LYRICA) capsule 75 mg 01/11 08 Completed PO PRE-OP ONCE 01/12/20 0847 01/12/20 0900 scopolamine (TRANSDERM-SCOP) 1 patch 01/14 08 Verified TD PRE-OP ONCE 01/12/20 0847 01/12/20 09 scopolamine patch placement confirmation -- Dispensed TD 2 TIMES DAILY 01/12/20 0847 01/12/20 1030 tranexamic acid (CYKLOKAPRON) injection -- Sent PRN 01/12/20 1051 01/12/20 0900 vancomycin (VANCOCIN) 1,000 mg in 200 mL IVPB 01/11 0955 Completed IV PRE-OP ONCE 01/12/20 0847 * No Diagnosis Codes entered * . No Known Allergies Vitals: No data found. Lines, Drains, and Airways Type Details Placement Removal Peripheral IV Date: 01/12/20; Time: 0859; Orientation: Right; Location: Hand; Placed By: Charlotte CUMMINGS; Gauge: 20 Gauge; Locals: Trans Dermal; Tolerance: Well 01/12/20 0859 by Charlotte Ndiaye RN ETT Date: 01/12/20; Time: 1012; Placed By: rivka chiang; Vent: easy mask; Induction: Standard IV; Blade Type: Gal; Blade Size: 4; Laryngoscopy View: Grade 1 (full cords); Intubation Adjuncts: Stylet; Tube: Endotracheal Tube; Placement: Oral; Tube Type: Cuffed-inflated; Tube Size(mm): 8 MM; Depthof Insertion: 20 CM; Measured From: lips; Attempts: 1; Cuff Infated: Air; Cuff Vol(mL): 6 mL; Verified By: Direct visualization, Bilateral breath sounds, CO2 Monitor 01/12/20 1012 by Adrianna Cisneros APRN-CRNA 01/12/20 1218 by Adrianna Cisneros APRN-CRNA Intraprocedure I/O Totals Anesthesia Other Output Estimated Blood Loss 200 mL 0.9% NaCl infusion Volume infused 600 ml Patient Transfer Location: PACU Transport Airway: spontaneous respirations and supplemental O2 Complications: None Handoff Given? Yes Checklist or [...] of report from the receiving PACUteam. ECHO Carbajal documented in this encounter Plan of Treatment Upcoming Encounters Date Type Department Care Team (Late st Contact Info) Description 08/23/2024 1:00 PM CDT Appointment [facility] [address] [place] [address], [facility] [address] [place] [address] Mario I[place] [id number] [place] [address] [place] [phone] [place] [id number] [address] documented as of this encounter Visit Diagnoses Not on filedocumented in this encounter Administered Medications Inactive Administered Medications - up to 3 most recent administrations Medication Order MAR Action Action Date Dose Rate Site 0.9% NaCl infusion at 20 mL/hr, Intravenous, PRE-OP CONTINUOUS, Starting on Fri01/12/20 at 0900, Until Fri01/12/20 at 1649, For Dialysis or Chronic Renal Failure patients. Use 500 ml bag and micro drip tubing, Pre-op $ New Bag/Syringe 01/12/2020 12:16 PM CDT $ New Bag/Syringe 01/12/2020 9:07 AM CDT 20 mL/ hr ceFAZolin (ANCEF) 2,000 mg in 50 ml IVPB 2,000 mg (2 g), at 100 mL/hr, Intravenous, PRE-OP MULTIPLE, Starting on Fri01/12/20 at 0847, Until Fri01/12/20 at 1649, Administer 30 minutes prior to surgical incision., Indication for anti-infective therapy: Surgical prophylaxis, Pre-op $ Given 01/12/2020 10:05 AM CDT 2 g cisatracurium (NIMBEX) injection PRN, Starting on Fri01/12/20 at 1009, Until Fri01/12/20 at 1237, Anesthesia Intra-op $ Given 01/12/2020 11:02 AM CDT 2 mg $ Given 01/12/2020 10:09 AM CDT 6 mg dexamethasone (DECADRON) injection PRN, Starting on Fri01/12/20 at 1015, Until Fri01/12/20 at 1237, Anesthesia Intra-op $ Given 01/12/2020 10:15 AM CDT 4 mg ePHEDrine injection PRN, Starting on Fri01/12/20 at 1203, Until Fri01/12/20 at 1237, Anesthesia Intra-op $ Given 01/12/2020 12:03 PM CDT 10 mg etomidate (AMIDATE) injection PRN, Starting on Fri01/12/20 at 1009, Until Fri01/12/20 at 1237, Anesthesia Intra-op $ Given 01/12/2020 10:09 AM CDT 14 mg fentaNYL (PF) (SUBLIMAZE) injection PRN, Starting on Fri01/12/20 at 1009, Until Fri01/12/20 at 1237, Anesthesia Intra-op $ Given 01/12/2020 12:20 PM CDT 25 mcg $ Given 01/12/2020 11:36 AM CDT 25 mcg $ Given 01/12/2020 11:15 AM CDT 25 mcg glycopyrrolate (ROBINUL) injection PRN, Starting on Fri01/12/20 at 1207, Until Fri01/12/20 at 1237, Anesthesia Intra-op $ Given 01/12/2020 12:07 PM CDT 0.6 mg lidocaine PF (XYLOCAINE MPF) 1 % injection PRN, Starting on Fri01/12/20 at 1009, Until Fri01/12/20 at 1237, Anesthesia Intra-op $ Given 01/12/2020 10:09 AM CDT 80 mg metoprolol (LOPRESSOR) injection PRN, Starting on Fri01/12/20 at 1024, Until Fri01/12/20 at 1237, Anesthesia Intra-op $ Given 01/12/2020 12:16 PM CDT 2.5 mg $ Given 01/12/2020 10:24 AM CDT 2.5 mg midazolam (VERSED) injection PRN, Starting on Fri01/12/20 at 1001, Until Fri01/12/20 at 1237, Anesthesia Intra-op $ Given 01/12/2020 10:01 AM CDT 1 mg neostigmine injection PRN, Starting on Fri01/12/20 at 1207, Until Fri01/12/20 at 1237, Anesthesia Intra-op $ Given 01/12/2020 12:07 PM CDT 4 mg ondansetron (ZOFRAN) injection PRN, Starting on Fri01/12/20 at 1200, Until Fri01/12/20 at 1237, Anesthesia Intra-op $ Given 01/12/2020 12:00 PM CDT 4 mg phenylephrine 100 mcg/mL injection PRN, Starting on Fri01/12/20 at 1151, Until Fri01/12/20 at 1237, Anesthesia Intra-op $ Given 01/12/2020 11:56 AM CDT 100 mcg $ Given 01/12/2020 11:51 AM CDT 100 mcg tranexamic acid (CYKLOKAPRON) injection PRN, Starting on Fri01/12/20 at 1030, Until Fri01/12/20 at 1237, Anesthesia Intra-op $ Given 01/12/2020 10:30 AM CDT 300 mg vancomycin (VANCOCIN) 1,000 mg in 200 mL IVPB 1,000 mg, at 200 mL/hr, Intravenous, PRE-OP ONCE, 1 dose, On Fri01/12/20 at 0900, Infuse over 60 minutes, initiated within 2 hours prior to surgical incision. Refrigerate, Indication for anti-infective therapy: Surgical prophylaxis, Pre-op $ Given 01/12/2020 9:55 AM CDT 1,000 mg $ Given 01/12/2020 9:50 AM CDT 1,000 mg documented in this encounter Care Teams Senior Software Engineering Manager Relationship Specialty Start Date End Date Kwame Berg MD PCP - General Internal Medicine 01/19/19 [place] [id number] [phone] Orthopedic Surgery Orthopedic Surgery 10/13/19 documented as of this encounter
--- OUTSIDE RECORDS SUMMARY | 2024-04-25 21:20 | XMS_ITS | Encounter Summary ---
Author Organization [facility] Address [address] [facility] [place] [address] Care Team Providers Care Section Weaver Name Role Phone Kwame Berg MD Primary Care Provider [phone] Dylon Agudelo MD Unavailable [phone] Reason for Visit * Auth/Cert Specialty Diagnoses / Procedures Referred By Vivienne t Referred To Contact Procedures CREATION ARTERIOVENOUS (AV) FISTULA DIRECT Referral ID Status Reason Start Date Expiration Date Visits Re quested Visits Authorized [id number] 1 1 Encounter Details Date Type Department Care Team (Late st Contact Info) Description 10/20/2019 1:35 PM CDT - 10/20/2019 3:01 PM CDT Surgery [facility] - Perioperative Surgery [address] [place] [address] [place] [address] [facility] [address] [place] [address] RIGHT UPPER ARM ARTERIOVENOUS FISTULA Surgery Details Date/Time Status Location OR Service Patient Class Case Class Case Type Trauma Case? 10/20/2019 1:35 PM Posted [facility] OR OR 05 Vascular Surgery Day Care Elective > 5 days Panel 1 Procedure LRB Anes Op Region Wound Class Comments RIGHT UPPER ARM ARTERIOVENOUS FISTULA MAC Ar m Clean Surgeon Surgeon Role Service Panel Mario [...] Sign Reading Time Taken Comments Blood Pressure 128/57 10/20/2019 2:44 PM CDT Pulse 85 10/20/2019 2:44 PM CDT Temperature 36.7 ??C (98 ??F) 10/20/2019 2:44 PM CDT Respiratory Rate 16 10/20/2019 2:44 PM CDT Oxygen Saturation 96% 10/20/2019 2:44 PM CDT Inhaled Oxygen Concentration - - Weight 62.1 kg (137 lb) 10/20/2019 10:33 AM CDT Height 157.5 cm (5' 2) 10/20/2019 10:49 AM CDT Body Mass Index 25.06 10/20/2019 10:33 AM CDT documented in this encounter Medications at Time [...] daily as needed for Pain 60 tablet 06/29/2019 11/19/2019 documented as of this encounter H&P Notes * Mario Iyer MD - 10/19/2019 7:42 AM CDT Surgical H&P Chief Complaint ESRD. ?? History of Present Illness Jules Mitchell is a 74 year old male. The patient is referred by Naveen Blackman MD. PCP is Kwame Berg MD. The patient has ESRD and is on hemodialysis. The patient is left handed. The patient denies shortness of breath, leg swelling, fatigue and anorexia. Vein mapping showed patent right basilic vein. My plan is for a right upper arm dialysis fistula. ?? Past Medical & Surgical History Past Medical History: Diagnosis Date ??? Cancer 2000 ?? patient/family unsure of type ??? ESRD (end stage renal disease) ? Evelyn mcmahon ,,sat 10/11/19 ??? High blood pressure ? Past Surgical History: Procedure Laterality Date ??? NEGATIVE SURGICAL HISTORY ? No Known Allergies ?? Medications Outpatient Medications Marked as Taking for the 10/11/19 encounter (Office Visit) with Mario Iyer MD Medication Sig Dispense Refill ??? allopurinol (ZYLOPRIM) 100 MG tablet ? amLODIPine (NORVASC) 5 MG tablet Take 5 mg by mouth once daily ? atorvastatin (LIPITOR) 20 MG tablet TK 1 T PO QD ?? 0 ??? cyclobenzaprine (FLEXERIL) 10 MG tablet TK 1 T PO TID ? diclofenac sodium (VOLTAREN) 1 % gel FRANKY AA TID ?? 11 ??? docusate sodium (COLACE) 100 MG capsule Take 100 mg by mouth once daily ? donepezil (ARICEPT) 10 MG tablet TK 1 T PO QD ? folic acid (FOLVITE) 1 MG tablet TK 1 T PO QD ? furosemide (LASIX) 80 MG tablet TK 1 T PO BID ? lisinopril (PRINIVIL;ZESTRIL) 5 MG tablet Take 5 mg by mouth once daily ? oxybutynin (DITROPAN) 5 MG tablet Take 5 mg by mouth once daily ? oxyCODONE-acetaminophen (PERCOCET) 5-325 MG tablet Take 1 tablet by mouth every 6 hours as needed ? polyethylene glycol 3350 (MIRALAX) 17 g packet MIX 1 PACKET IN 8 OUNCES OF FLUID AND DRINK QD ? rOPINIRole (REQUIP) 0.5 MG tablet TK 1 T PO THREE TIMES WEEKLY WITH DIALYSIS ? sevelamer carbonate (RENVELA) 800 MG Take 800 mg by mouth 3 times daily ? sodium bicarbonate 325 MG tablet Take 325 mg by mouth once daily ? tamsulosin (FLOMAX) 0.4 MG capsule TK 1 C PO QD ? traMADol (ULTRAM) 50 MG tablet Take 1 tablet by mouth 2 times daily as needed for Pain 60 tablet 0 ? Social History ?? Tobacco Use ??? Smoking status: Never Smoker ??? Smokeless tobacco: Never Used Substance Use Topics ??? Alcohol use: Not Currently ??? Drug use: Never ? Family History Problem Relation Name Age of Onset ??? Hypertension Mother ? Hypertension Sister ? Diabetes - Type 2 Sister ? Physical Examination: Body mass index is 27.44 kg/m??. Constitutional: Vital signs are stable and the patient is in no acute distress. Eyes: Reveal no icterus. [...] reviewed today for surgical planning. ?? Impression/Plan ESRD. Will plan right upper arm dialysis fistula I have discussed the risks, benefits and [...] ESRD (end stage renal disease) ? [facility] 10/11/19 ??? High blood pressure ? documented in this encounter OR Notes * OR Surgeon - Mario Iyer MD - 10/20/2019 2:30 PM CDT [facility] OPERATIVE REPORT PATIENT: Jules Mitchell MR#: [id number] ADMIT DATE: 10/20/2019 9:51 AM [facility] # [id number] DATE OF SURGERY: 10/20/2019 : 1945 PHYSICIAN: Mario Iyer MD PREOPERATIVE DIAGNOSIS: End stage renal disease. POSTOPERATIVE DIAGNOSIS: End stage renal disease. PROCEDURE PERFORMED: Right upper arm deep brachial vein arteriovenous fistula. SURGEON: Mario Iyer MD ANESTHESIA: 1% [...] well. The antecubital fossa was opened. The right deep brachial vein was dissected out as was the brachial artery. End-to-side anastomosis was performeed with 6-0 Prolene in a simple running fashion with two separate suture lines. Just prior to the anastomosis, the patient was given 3,000 units of heparin intravenously. Once completed, the fistula was opened. There was excellent flow in the outflow vein. The patient retained a nicely palpable right radial artery. The incision was the n closed with 2-0 Vicryl in a simple interuppted fashion on the subcutaneous tissue and then 2-0 Nylon in a simple funning fashion on the skin. The patient tolerated the procedure well and was found to be stable in the recovery room postoperatively. Sponge and instrument counts were correct x2. Preoperatively, the patient and the patient's family understood the risks of the procedure to be bleeding, infection, pain, poor wound healing, decreased circulation to the right arm and the possible need for further dialysis access surgery. With all this in mind, the patient was willing to go ahead with today's surgery. Mario Iyer MD documented in this encounter Plan of Treatment Upcoming Encounters Date Type Department Care Team (Late st Contact Info) Description 08/23/2024 1:[address] [facility] Vascular Services [id number] [place] [address], [address] [place] [address] [place] [address] [facility] [address] [place] [address] [place] [address] [facility] [address] [place] [address] documented as of this encounter Procedures Procedure Name Priority Date/Time Associated Diagnosis Comments CREATION ARTERIOVENOUS (AV) FISTULA DIRECT 10/20/2019 1:12 PM CDT BASIC METABOLIC PANEL (CALCIUM TOTAL) STAT 10/20/2019 10:25 AM CDT Pre-op evaluation documented in this encounter Results * (ABNORMAL) BASIC METABOLIC PANEL (CALCIUM TOTAL) (10/20/2019 10:25 AM CDT) Glucose 93 70 - 105 mg/dL 10/20/2019 10:52 AM CDT [facility] Sodium 135(L) 136 - 145 mmol/L 10/20/2019 10:52 AM CDT [facility] Potassium 5.1 3.5 - 5.1 mmol/L 10/20/2019 10:52 AM CDT [facility] Chloride 100 98 - 107 mmol/L 10/20/2019 10:52 AM CDT [facility] CO2 24 23 - 31 mmol/L 10/20/2019 10:52 AM CDT [facility] Calcium 9.6 8.4 - 10.4 mg/dL 10/20/2019 10:52 AM CDT [facility] Anion Gap 11 8 - 16 mmol/L 10/20/2019 10:52 AM CDT [facility] BUN 44(H) 8.4 - 25.7 mg/dL 10/20/2019 10:52 AM CDT [facility] Creatinine 6.22(H) 0.72 - 1.25 mg/dL 10/20/2019 10:52 AM CDT [facility] eGFR by MDRD 9 mL/min/1.7 3m2 10/20/2019 10:52 AM CDT [facility] eGFR by MDRD 11 mL/min/1.7 3m2 10/20/2019 10:52 AM CDT [facility] Blood BLOOD SPECIMEN / Unknown Venipuncture / Unknown 10/20/2019 10:25 AM CDT 10/20/2019 10:34 AM CDT Megan Ca DO LAB - CHEMISTRY DELFINO VIDAL [facility] [address] [place] [address] documented in this encounter Visit Diagnoses Not on filedocumented in this encounter Administered Medications Inactive Administered Medications - up to 3 most recent administrations Medication Order MAR Action Action Date Dose Rate Site 0.9% NaCl infusion at 20 mL/hr, Intravenous, PRE-OP CONTINUOUS, Starting on Fri10/20/19 at 1045, Until Fri10/20/19 at 1824, For Dialysis or Chronic Renal Failure patients. Use 500 ml bag and micro drip tubing, Pre-op $ New Bag/Syringe 10/20/2019 10:37 AM CDT 20 mL/hr heparinized saline 2 units/ml infusion CONTINUOUS PRN, Starting on Fri10/20/19 at 1331, Until Fri10/20/19 at 1824, Intra-op $ New Bag/Syringe 10/20/2019 1:31 PM CDT 1,000 mL Operative Site lidocaine 1% - EPINEPHrine 1:100,000 injection PRN, Starting on Fri10/20/19 at 1331, Until Fri10/20/19 at 1824, Intra-op $ Given 10/20/2019 1:31 PM CDT 20 mL Operative Site lidocaine PF (XYLOCAINE MPF) 1 % injection 0.5 mL 0.5 mL, Infiltration, PRE-OP ONCE, 1 dose, On Fri10/20/19 at 1045, May be used (0.5 ml locally to anesthetize prior to insertion). For patients not allergic to local anesthetics., Pre-op $ Given 10/20/2019 10:35 AM CDT 0.5 mL documented in this encounter Active and Recently Administered Medications Times are shown in CDT. Scheduled Medication Order 10/18/2019 10/19/2019 10/20/2019 ceFAZolin (ANCEF) 2,000 mg in 50 ml IVPB (COMPLETED) 2,000 mg (2 g), at 100 mL/hr, Intravenous, ONCE, 1 dose, On Fri10/20/19 at 1045, Administer 30 minutes prior to surgical incision., Indication for anti-infective therapy: Surgical prophylaxis, Pre-op 1322 ($ Given - Prov ider: Trinidad Gallo, CIGAR TOBACCO PROCESSING SUPERVISOR-MOLD FINISHER) lidocaine PF (XYLOCAINE MPF) 1 % injection 0.5 mL (COMPLETED) 0.5 mL, Infiltration, PRE-OP ONCE, 1 dose, On Fri10/20/19 at 1045, May be used (0.5 ml locally to anesthetize prior to insertion). For patients not allergic to local anesthetics., Pre-op 1035 ($ Given - Prov ider: Dolores Goodman RN) Continuous Medication Order 10/18/2019 10/19/2019 10/20/2019 0.9% NaCl infusion at 20 mL/hr, Intravenous, PRE-OP CONTINUOUS, Starting on Fri10/20/19 at 1045, Until Fri10/20/19 at 1824, For Dialysis or Chronic Renal Failure patients. Use 500 ml bag and micro drip tubing, Pre-op 1037 ($ New Bag/Syri nge - Provider: Dolores Goodman RN)1321 (Anesthesia Volume Adjustment - Provider: ECHO Castro - Comment: given by preop)1429 (Anesthesia Volume Adjustment - Provider: ECHO Castro) PRN Medication Order 10/18/2019 10/19/2019 10/20/2019 heparinized saline 2 units/ml infusion CONTINUOUS PRN, Starting on Fri10/20/19 at 1331, Until Fri10/20/19 at 1824, Intra-op 1331 ($ New Bag/Syri nge - Provider: Mario Iyer MD) lidocaine 1% - EPINEPHrine 1:100,000 injection PRN, Starting on Fri10/20/19 at 1331, Until Fri10/20/19 at 1824, Intra-op 1331 ($ Given - Prov ider: Mario Iyer MD) documented in this encounter Care Teams Section Weaver Relationship Specialty Start Date End Date Kwame Berg MD PCP - General Internal Medicine 01/19/19 [place] [address] [id number] Orthopedic Surgery Orthopedic Surgery 10/13/19 documented as of this encounter
--- OUTSIDE RECORDS SUMMARY | 2024-04-25 21:20 | XMS_ITS | Encounter Summary ---
Author Organization [facility] Address [address] [facility] [address] Care Team Providers Care Envelope Fold Operator Name Role Phone Kwame Berg MD Primary Care Provider [phone] Reason for Visit * Reason Comments Evaluation Encounter Details Date Type Department Care Team (Late st Contact Info) Description 10/11/2019 10:10 AM CDT Office Visit [facility] - Surgery [address] [place], [address] [address] [place] [address] [address] ESRD (end stage renal disease) ([facility]) (Primary Dx) Social History Tobacco Use Types Packs/Day Years Used Date Smoking Tobacco: Never Smokeless Tobacco: Never Alcohol Use Standard Drinks/Week [...] - Inhaled Oxygen Concentration - - Weight 68 kg (150 lb) 10/11/2019 10:31 AM CDT Height 157.5 cm (5' 2) 10/11/2019 10:31 AM CDT Body Mass Index 27.44 10/11/2019 10:31 AM CDT documented in this encounter Patient Instructions * Patient Instructions* Edwige Mcgraw - 10/11/2019 10:39 AM CDT Patient's medications and allergies were reviewed with the patient today. Patient was instructed tocontact primary care physician or ordering provider with any questions regarding medications. Patient Name: Jules Mitchell Your procedure has been scheduled for: Date:Friday10/20/2019 Approximate Arrival Time: 11:30AM You will be notified by the hospital regarding your exact arrival time. Surgeon: Place: [x] Mario Iyer M.D. [x] [address] [] Osmany Molina M.D. [] [facility] [] Olivier Mathew M.D. [] [facility] Entrance [] Regan Zhang M.D. Endoscopy. [] [place] M.D. [] [address] [] Leela Myrick D.O. Surgery Dept. [] Osmany Argueta M.D. [] [facility] [] Dre Arellano M.D. [facility]. [] Donna Powers D.O. [] Delmer Patrick M.D. INSTRUCTIONS: [x] Nothing to eat or drink after midnight. [x] Do take heart, blood pressure, or breathing medications with a sip of water the morning of surgery. [] DO NOT take diabetic medication the morning [...] hospital after surgery. Name of Procedure: RIGHT UPPER ARM ARTERIOVENOUS FISTULA Comments: Your follow-up appointment is: Date:Friday11/01/2019 Time: 11:30AM documented in this encounter Progress Notes * Mario Iyer MD - 10/11/2019 10:18 AM CDT Chief Complaint ESRD. History of Present Illness [...] for a right upper arm dialysis fistula. Past Medical History: Diagnosis Date ??? Cancer 2000 patient/family unsure of type ??? ESRD (end stage renal disease) Evelyn quarles,,sat 10/11/19 ??? High blood pressure Past Surgical History: Procedure Laterality Date ??? NEGATIVE SURGICAL HISTORY No Known Allergies Outpatient Medications Marked as Taking for the 10/11/19 encounter (Office Visit) with Maroi Iyer MD Medication Sig Dispense Refill ??? [...] as needed for Pain 60 tablet 0 Social History Tobacco Use ??? Smoking status: Never Smoker ??? Smokeless tobacco: Never Used Substance Use Topics ??? Alcohol use: Not Currently ??? Drug use: Never Family History Problem Relation Name Age of Onset ??? Hypertension Mother ??? Hypertension Sister ??? Diabetes - Type 2 Sister Physical Examination: Body mass index is 27.44 [...] and reviewed today for surgical planning. Impression/Plan ESRD. Will plan right upper arm [...] implications of this infection. See consent form. Past Medical History: Diagnosis Date ??? Cancer 2000 patient/family unsure of type ??? ESRD (end stage renal disease) Evelyn quarles,sat 10/11/19 ??? High blood pressure documented in this encounter Plan of Treatment Upcoming Encounters Date Type Department Care Team (Late st Contact Info) Description 08/23/2024 1:00 PM CDT Appointment [facility] Vascular Services [address] [place] [address], [facility] [address] [place] [address] [place] [address] [address] [place] [address] [address] documented as of this encounter Visit Diagnoses Diagnosis ESRD (end stage renal disease) (HCC)- Primary End stage renal disease documented in this encounter Care Teams Envelope Fold Operator Relationship Specialty Start Date End Date Kwame Berg MD PCP - General Internal Medicine 01/19/19 documented as of this encounter
--- OUTSIDE RECORDS SUMMARY | 2024-04-25 21:20 | XMS_ITS | Encounter Summary ---
Author Organization [facility] Address [address] [place] [address] Care Team Providers Care Junior Engineer Name Role Phone Kwame Berg MD Primary Care Provider [phone] Dylon Agudelo MD Unavailable [phone] Encounter Details Date Type Department Care Team (Latest Contact Info) Description 01/06/2020 Travel Social History Tobacco Use Types Packs/Day [...] have Coronavirus / COVID-19? No / Unsure 01/06/2020 5:56 PM CDT documented as of this encounter Plan of Treatment Upcoming Encounters Date Type Department Care Team (Late st Contact Info) Description 08/23/2024 1:00 PM CDT Appointment [facility] Health Vascular Services [address] [facility], [address] [place] [address] [place] [address] [facility] [address] [place] [address] [place] [address] [facility] [address] [place] [address] documented as of this encounter Visit Diagnoses Not on filedocumented in this encounter Care Teams Junior Engineer Relationship Specialty Start Date End Date Kwame Berg MD PCP - General Internal Medicine 01/19/19 [place] [address] [address] Orthopedic Surgery Orthopedic Surgery 10/13/19 documented as of this encounter
--- OUTSIDE RECORDS SUMMARY | 2024-04-25 21:20 | XMS_ITS | Encounter Summary ---
Author Organization [facility] Address [address] [facility] [place] [address] Care Team Providers Care Belt Sander Name Role Phone Kwame Berg MD Primary Care Provider [phone] Dylon Agudelo MD Unavailable [phone] Reason for Visit * Auth/Cert (Routine) Specialty Diagnoses / Procedures Referred By Contac t Referred To Contact Diagnoses Unilateral primary osteoarthritis, left hip Procedures CA TOTAL HIP REPLAC[place] [id number] [place] [address] [facility] [address] [place] [address] Referral ID Status Reason Start Date Expiration Date Visits Re quested Visits Authorized [id number] 12/02/2019 12/01/2020 1 1 Encounter Details Date Type Department Care Team (Late st Contact Info) Description 12/27/2019 10:33 AM CDT Anesthesia Event [facility] - Perioperative Surgery [address] [place] [address] Charlotte Arthur MD [address] [address] Olivia Rios, SWIMMING POOL CLEANER-CLERK OF SCALES [address] [facility] [address] [place] [address] Anesthesia Record Procedure Summary Procedure Name Responsible Anesthesiologist Anesthesia Start Time Anesthesia Stop Time SURGICAL CASE DISCONTINUED PREOP Events Date Time Event Comment 12/27/2019 0901 AN Not Meds Name Total 0.9% NaCl infusion 0 mL * Agents No agents on file. * Blood No blood administrations on file. Lines, Drains, and Airways Type Details Placement Removal Hemodialysis AV Access 10/20/19; 1426; F istula; Right Upper Arm 10/20/19 1426 by Clare Mann principal architectural firm AV Access 06/24/22; Graft; Left Upper Arm 06/24/22 0000 by Oly Castro RN documented in this encounter Social History Tobacco [...] PM CDT documented as of this encounter Progress Notes * Charlotte Arthur MD - 12/27/2019 7:43 AM CDT ANESTHESIA PREOPERATIVE EVALUATION NOTE Procedure: LEFT POSTERIOR ARTHROPLASTY TOTAL HIP (Hip) Vitals: No data found. ANESTHESIA PRE-EVALUATION NOTE Physical Exam: Orientation X3 Airway/Mallampati Score: II Mouth Opening Distance: 3.5 fingerwidths Neck ROM: full Teeth: normal Heart: normal - S1 S2 Lungs: clear to ausculation bilaterally Other Findings: Pt's initial K is 6.3 will recheck and plan from there. ANESTHESIA PLAN ASA Score: 4 NPO Status: No solids since midnight and No liquids within 2 hours Anesthesia Plan: general Planned Induction: intravenous Planned Postop Destination: PACU Anesthetic plan was discussed with: patient Anesthetic Plan discussion was: Consented Overall additional findings/comments: Pt states he had hd on Sat. He has a hx of hyperkalemia for which he was given kayexelate, and veltassa to decrease it. . BMI, Height, Weight Tobacco History Estimated body mass index is 24.98 kg/m?? as calculated from the following: Height as of 12/22/19: 1.575 m (5' 2). Weight as of 12/22/19: 62 kg (136 lb 9.6 oz). Social History Tobacco Use Smoking Status Former Smoker ??? Last attempt to quit: 10/12/2012 ??? Years since quittin.2 Smokeless Tobacco Never Used Alcohol History Drug History Social History Substance and Sexual Activity Alcohol Use Not Currently Social History Substance and Sexual Activity Drug Use Never Outpatient Medications: Inpatient Medications: No outpatient medications have been marked as taking for the 12/27/19 encounter (Hospital Encounter). Current Facility-Administered Medications Medication Dose Last Dose ??? 0.9% NaCl 1,000 mL ??? acetaminophen 650 mg ??? ceFAZolin 2 g ??? celecoxib 400 mg ??? metoclopramide 10 mg ??? pregabalin 75 mg ??? scopolamine 1 patch And ??? scopolamine patch placement confirmation ??? [...] ESRD (end stage renal disease) Evelyn mcmahon [facility] 11/2419 ??? ESRD on dialysis ??? High blood pressure ??? Pure hypercholesterolemia Surgical History: Past Surgical History: Procedure Laterality [...] 31.9 MPV 8.9* Recent Labs Component Name 12/22/19 0948 SODIUM 138 POTASSIUM 5.7* CALCIUM 9.4 CHLORIDE 98 CO2 29 GLUCOSE 102 BUN 42* CREATININE 7.70* Invalid input(s): PREGTESTUR Recent Labs Component Name 12/22/19 0948 10/13/19 1215 ALT <6 - - AST 11 - - ALKPHOS 61 - - ANIONGAP 11 - - EGFR 7 - - ALBUMIN 4.3 - 3.9 FERRITIN - - 4,981* IRON - - 114 TIBC - - 172* FESAT - - 66* - = values in this interval not displayed. Potassium is 6.2 today, case is cancelled. Charlotte Arthur MD documented in this encounter Plan of Treatment Upcoming Encounters Date Type Department Care Team (Late st Contact Info) Description 08/23/2024 1:00 PM CDT Appointment [facility] Health Vascular Services [address] [facility] [address] [place], [place] [id number] [place] [address] [facility] [address] [place] [address] [place] [address] [facility] [address] [place] [address] documented as of this encounter Visit Diagnoses Not on filedocumented in this encounter Care Teams Belt Sander Relationship Specialty Start Date End Date Kwame Berg MD PCP - General Internal Medicine 01/19/19 [place] [address] [facility] [address] [place] [phone] Orthopedic Surgery Orthopedic Surgery 10/13/19 documented as of this encounter
--- OUTSIDE RECORDS SUMMARY | 2024-04-25 21:20 | XMS_ITS | Encounter Summary ---
Author Organization [facility] Address [address] [place] [address] Care Team Providers Care Dry Cell And Battery Assembler Name Role Phone Kwame Berg MD Primary Care Provider [phone] Dylon Agudelo MD Unavailable [phone] Encounter Details Date Type Department Care Team (Latest Contact Info) Description 12/15/2019 Travel Social History Tobacco Use Types Packs/Day [...] Info) Description 08/23/2024 1:00 PM CDT Appointment [facility] Health Vascular Services [address] [facility], [address] [place] [address] [place] [address] [place] [address] [place] [address] [place] [address] documented as of this encounter Visit Diagnoses Not on filedocumented in this encounter Care Teams Dry Cell And Battery Assembler Relationship Specialty Start Date End Date Kwame Berg MD PCP - General Internal Medicine 01/19/19 [place] [address] [address] Orthopedic Surgery Orthopedic Surgery 10/13/19 documented as of this encounter
--- OUTSIDE RECORDS SUMMARY | 2024-04-25 21:20 | XMS_ITS | Encounter Summary ---
Author Organization [facility] Address [address] [place] [address] Care Team Providers Care Deep Fryer Assembler Name Role Phone Kwame Berg MD Primary Care Provider [phone] Dylon Agudelo MD Unavailable [phone] Encounter Details Date Type Department Care Team (Latest Contact Info) Description 01/08/2020 Travel Social History Tobacco Use Types Packs/Day [...] Info) Description 08/23/2024 1:00 PM CDT Appointment [facility] Health Vascular Services [address] [facility], [address] [place] [address] [place] [address] [facility] [address] [place] [address] [place] [address] [facility] [address] [place] [address] documented as of this encounter Visit Diagnoses Not on filedocumented in this encounter Care Teams Deep Fryer Assembler Relationship Specialty Start Date End Date Kwame Berg MD PCP - General Internal Medicine 01/19/19 [place] [address] [address] Orthopedic Surgery Orthopedic Surgery 10/13/19 documented as of this encounter
--- OUTSIDE RECORDS SUMMARY | 2024-04-25 21:20 | XMS_ITS | Encounter Summary ---
Author Organization [facility] Address [address] [place] [address] Care Team Providers Care Garage Mechanic Name Role Phone Kwame Berg MD Primary Care Provider [phone] Reason for Referral * Radiology Services (Routine) - Closed Specialty Diagnoses / Procedures Referred By Vivienne burrell Referred To Contact Vascular Lab Diagnoses ESRD (end stage renal disease) (HCC) Procedures VAS BILAT [place]PING [place] [address] [facility] [address] [place] [phone] [facility] [address] [place] [address], [facility] [address] [place] [address] Referral ID Status Reason Start Date Expiration Date Visits Re quested Visits Authorized [id number] Closed 06/25/2019 12/22/2019 1 1 Reason for Visit * Radiology Services (Routine) - Closed Specialty Diagnoses / Procedures Referred By Contac t Referred To Contact Vascular Lab Diagnoses ESRD (end stage renal disease) (HCC) Procedures VAS BILAT MAPPING [place] [address] [facility] [address] [place] [address] [facility] [address] [place] [address], [facility] [address] [place] [address] Referral ID Status Reason Start Date Expiration Date Visits Re quested Visits Authorized [id number] Closed 06/25/2019 12/22/2019 1 1 Encounter Details Date Type Department Care Team (Latest Contact Info) Description 10/11/2019 8:00 AM CDT - 10/11/2019 11:59 PM CDT Hospital Encounter [facility] Health Vascular Services [address] [facility], [address] [place] [address] [place] [address] [facility] [address] [place] [address] Discharge Disposition: Home or Self Care Social [...] on file documented as of this encounter Medications at [...] mg by mouth once daily 08/15/2019 01/20/2020 cyclobenzaprine (FLEXERIL) 10 MG tablet TK 1 T PO TID 04/29/2019 diclofenac sodium (VOLTAREN) 1 % gel FRANKY AA TID 11 01/25/2019 0 docusate sodium (COLACE) 100 MG capsule Take 100 mg by mouth once daily as needed 05/28/2019 01/16/2022 donepezil (ARICEPT) 10 MG tablet TK 1 T PO QD 04/30/2019 10/18/2019 folic acid (FOLVITE) 1 MG tablet Take 1 mg by mouth once daily 03/24/2019 01/20/2020 HYDROcodone-acetaminophe n (NORCO) 5-325 MG tablet Take 1 tablet by mouth every 6 hours as needed for Pain 30 tablet 10/20/2019 12/27/2019 lisinopril (PRINIVIL;ZESTRIL) 5 MG tablet Take 5 mg by mouth once daily 08/15/2019 09/13/2020 oxybutynin (DITROPAN) 5 MG tablet Take 5 mg by mouth once daily 07/25/2019 10/18/2019 oxyCODONE-acetaminophen (PERCOCET) 5-325 MG tablet Take 1 tablet by mouth every 6 hours as needed 05/28/2019 10/18/2019 polyethylene glycol 3350 (MIRALAX) 17 g packet Take 17 (seventeen) g by mouth once daily as needed 08/09/2019 08/04/2023 sevelamer carbonate (RENVELA) 800 MG Take 800 mg by mouth 3 times daily 09/13/2019 10/18/2019 sodium bicarbonate 325 MG tablet Take 1 (one) tablet by mouth once daily 07/05/2019 10/21/2022 tamsulosin (FLOMAX) 0.4 MG capsule Take 0.4 mg by mouth once daily 04/30/2019 10/18/2019 traMADol (ULTRAM) 50 MG tablet Take 1 tablet by mouth 2 times daily as needed for Pain 60 tablet 06/29/2019 11/19/2019 documented as of this encounter Plan of Treatment Upcoming Encounters Date Type Department Care Team (Late st Contact Info) Description 08/23/2024 1:00 PM CDT Appointment [facility] Vascular Services [address] [place] [address] [place] [address] [address] [place] [address] [address] documented as of this encounter Procedures Procedure Name Priority Date/Time Associated Diagnosis Comments VAS BILAT MAPPING FOR HEMODIALYSIS Routine 10/11/2019 10:38 AM CDT ESRD (end stage renal disease) (HCC) documented in this encounter Results * VAS BILAT MAPPING FOR HEMODIALYSIS (10/11/2019 10:38 AM CDT) Anatomical Region Laterality Modality Lower Extremity, Upper Extremity Ultrasound 10/11/2019 10:2 5 AM CDT Narrative Procedure Note Mario Iyer MD - 10/11/2019 [facility] Vascular [place] [address], [address] [place] [address] Vessel Mapping for Hemodialysis Report Pat.Name: FERDINAND RASMUSSEN Pat.ID: [id number] St.Date: 10/11/2019 Refer.MD: NOÉ COELLO Exam Time: 10:25:00 AM Study Type:Vessel Mapping for Hemodialysis Age: 2 1945,74Y Sex: MALE Sonogrphr: Grant Villa RVT Pat. Stat.:Outpatient ICD - 9: N18.6 End stage renal disease CPT - 4: 35516 Procedures: Vessel Mapping for Hemodialysis Race: 2 Visit ID: [id number] ++++++++++++++++++++++++++++++++++++ SUMMARY: ++++++++++++++++++++++++++++++++++++ The right upper basilic vein is adequate for access. ++++++++++++++++++++++++++++++++++++ FINDINGS: ++++++++++++++++++++++++++++++++++++ Procedure: Duplex vein mapping was carried out in the right upper extremity. Study Quality: This study is of adequate technical quality. Mapping Rt: The right cephalic vein is not patent and compressible. The right basilic vein is patent and compressible. The right basilic vein measured .4 cm at the antecubital fossa and .56 cm in the mid portion of the arm. The right cephalic vein is small. Signed 10/11/2019 04:19 PM Mario Iyer MD Mario Iyer MD VASCULAR LAB ORDER SANDER documented in this encounter Visit Diagnoses Diagnosis ESRD (end stage renal disease) (HCC) End stage renal disease documented in this encounter Care Teams Garage Mechanic Relationship Specialty Start Date End Date Kwame Berg MD PCP - General Internal Medicine 01/19/19 documented as of this encounter
--- OUTSIDE RECORDS SUMMARY | 2024-04-25 21:20 | XMS_ITS | Encounter Summary ---
Author Organization [facility] Address [facility] [facility] [place] [address] Care Team Providers Care Casing Material Weigher Name Role Phone Kwame Berg MD Primary Care Provider Dylon Agudelo MD Unavailable [phone] Reason for Visit * Reason Comments Establish Care Anemia Encounter Details Date Type Department Care Team (Latest Contact Info) Description 10/13/2019 11:20 AM CDT Office Visit [facility] Cancer Care [address] [place] [address] [place] [id number] [place] [address] Anemia, unspecified type (Primary Dx); ESRD [...] have Coronavirus / COVID-19? No / Unsure 10/13/2019 12:18 PM CDT documented as of this encounter Last Filed Vital Signs Vital Sign Reading Time Taken Comments Blood Pressure 134/49 10/13/2019 11:52 AM CDT Pulse 82 10/13/2019 11:52 AM CDT Temperature 37.1 ??C (98.8 ??F) 10/13/2019 11:52 AM C DT Respiratory Rate 20 10/13/2019 11:52 AM CDT Oxygen Saturation 96% 10/13/2019 11:52 AM CDT Inhaled Oxygen Concentration - - Weight 61.7 kg (136 lb 1.6 oz) 10/13/2019 11:52 AM CDT Height 157.5 cm (5' 2) 10/13/2019 11:52 AM CDT Body Mass Index 24.89 10/13/2019 11:52 AM CDT documented in this encounter Patient Instructions * Patient Instructions* Lucy Girard MD - 10/13/2019 12:09 PM CDT Labs today RBC in 4 weeks with CBC documented in this encounter Progress Notes * Lucy Girard MD - 10/13/2019 11:48 AM CDT [facility] CANCER CARE HEMATOLOGY/ONCOLOGY CLINIC CONSULTATION Date of Visit: 10/13/2019 Patient Name: uJles Mitchell is a 74 year old male = 1945 Referring Physician: Dr Oscar Agudelo PCP: Kwame Berg MD [...] in the range of 8-10 g/dl. I spoke to Dr Blackman and he has been getting IV Iron and MILA support during hemodialysis. CBC today showed WBC 6.6, HB 11.7, MCV 104.5, PLT 187. He is over all doing well. His Vit B12/folate and SPEP is all pending. PMH: ??Type 2 diabetes mellitus ?Anemia of [...] file Gets together: Not on file Attends restoration service: Not on file Active member of [...] PHQ-2:TOTAL POINT SCORE: 0 PHQ-9: Physical Examination: Vitals: BP 134/49 (BP SITE: LEFT ARM, BP POSITION: SITTING, BP CUFF SIZE: 11) Pulse 82 Temp 98.8 ??F (37.1 ??C) (Temporal) Resp 20 Ht 5' 2 (1.575 m) Wt 136 lb 1.6 oz (61.7 kg) SpO2 96% BMI 24.89 kg/m2 General: No acute distress. HEENT: Extra-ocular movements intact. Moist mucous membranes [...] affect. Pertinent Labs: Recent Labs Component Name 10/13/19 1215 05/27/19 1913 05/26/19 0803 WBC 6.6 4.5 4.8 RBC 3.57* 2.72* 2.93* HGB 11.7* 8.5* 9.2* HCT 37.3 28.2* 30.1* MCV 104.5* 103.7* 102.7* PLTCOUNT 187 215 233 Component Latest Ref Rng & Units 05/15/2019 Methylmalonic Acid 0 - 378 nmol/L 687 (H) Disclaimer Comment Vitamin B12 213 - 816 pg/mL 349 Assessment & Plan Anemia of CKD ESRD on HD Osteoarthritis of left hip Patient has been on HD for over 6 months and lately he has been getting IV iron and Procrit during HD. His HB is already 11.7 g/dl now which is optimal for orthopedic surgery., I will inform Dr Agudelo and will hopeful will be scheduled for surgery soon. Thank you for involving me in the care of this patient and let me know if there will be any additional questions, Lucy Girard MD 10/13/2019 5:01 PM Hematology and Oncology [facility] documented in this encounter Plan of Treatment Upcoming Encounters Date Type Department Care Team (Late st Contact Info) Description 08/23/2024 1:[address] [facility] Vascular Services [address] [facility], [address] [place] [address] [place] [address] [facility] [address] [place] [phone] [place] [address] [address] documented as of this encounter Procedures Procedure Name Priority Date/Time Associated Diagnosis Comments CBC W/O DIFFERENTIAL (CANCER CARE) Routine 10/13/2019 12:15 PM CDT Anemia, unspecified type PROTEIN ELECTRO+FORREST+FREE LIGHT CHAINS Routine 10/13/2019 12:15 PM CDT Anemia, unspecified type ERYTHROPOIETIN Routine 10/13/2019 12:15 PM CDT Anemia, unspecified type IRON + TIBC PANEL Routine 10/13/2019 12: 15 PM CDT Anemia, unspecified type VITAMIN B12 FOLATE PANEL Routine 10/13/2019 12:15 PM CDT Anemia, unspecified type FERRITIN Routine 10/13/2019 12:15 PM CDT Anemia, unspecified type documented in this encounter Results * (ABNORMAL) CBC W/O DIFFERENTIAL (CC) (10/13/2019 12:15 PM CDT) WBC 6.6 4.4 - 10.7 x10E9/L 10/13/2019 [...] - 416 x10E9/L 10/13/2019 12:22 PM CDT [facility] MPV 9.1(L) 9.4 - 12.9 fl 10/13/2019 12:22 PM CDT [facility] Blood BLOOD SPECIMEN / Unknown 10/13/2019 12:15 PM CDT 10/13/2019 12:15 PM CDT Lucy Girard MD LAB - HEMATOLOGY ORD ERABLES [facility] [id number] [address] * (ABNORMAL) PROTEIN ELECTRO+FORREST+FREE LIGHT CHAINS (10/13/2019 12:15 PM CDT) IgG Quantitative 1,393 603 - 1,613 mg/dL [facility] INSURANCE BILL IgA Quantitative 275 61 - 437 mg/dL [facility] INSURANCE BILL IgM Quantitative 83 15 - 143 mg/dL [facility] INSURANCE BILL Protein Total 7.3 6.0 - 8.5 g/dL [facility] INSURANCE BILL Albumin 3.9 2.9 - 4.4 g/dL [facility] INSURANCE BILL Alpha-1 Globulin 0.3 0.0 - 0.4 g/dL [facility] INSURANCE BILL Oxamn-1-Sxmwddtl 0.8 0.4 - 1.0 g/dL [facility] INSURANCE [...] scan will follow via computer, mail, or air control electronics operator delivery. Free Sage Light Chains 148.4(H) 3.3 - 19.4 mg/L [facility] INSURANCE BILL Free Lambda Light Chains 109.0(H) 5.7 - 26.3 mg/L [facility] INSURANCE BILL Sage/Lambda Ratio 1.36 0.26 - 1.65 [facility] INSURANCE BILL Blood BLOOD SPECIMEN / Unknown 10/13/2019 12:15 PM CDT 10/13/2019 Narrative Resulting Agency Comment Lab Testing performed at: [facility] [place] [id number] [facility] ??[facility] [id number] Lucy Girard MD LAB - CHEMISTRY DELFINO VIDAL [facility] INSURANCE BILL [address] [place] [address] * VITAMIN B12 FOLATE PANEL (10/13/2019 12:15 PM CDT) Vitamin B12 279 213 - 816 pg/mL [facility] INSURANCE BILL Folate 17.2 7.0 - 31.4 ng/mL [facility] INSURANCE BILL Blood BLOOD SPECIMEN / Unknown 10/13/2019 12:15 PM CDT 10/13/2019 Narrative Resulting Agency Comment Lab Testing performed at: [facility] [address] [address] ?? [facility] [id number] Lucy Girard MD LAB - CHEMISTRY DELFINO VIDAL [facility] INSURANCE BILL [address] [place] [address] * (ABNORMAL) FERRITIN (10/13/2019 12:15 PM CDT) Ferritin 4,981(H) 22 - 275 ng/mL [facility] INSURANCE BILL Blood BLOOD SPECIMEN / Unknown 10/13/2019 12:15 PM CDT 10/13/2019 Narrative Resulting Agency Comment Lab Testing performed at: [facility] [address] ?? Tamara FERNANDEZ [id number] Lucy Girard MD LAB - CHEMISTRY DELFINO VIDAL [facility] INSURANCE BILL [address] [place] [address] * (ABNORMAL) IRON + TIBC PANEL (10/13/2019 [...] Resulting Agency Comment Lab Testing performed at: [facility] ??[facility] [id number] Lucy Girard MD LAB - CHEMISTRY DELFINO VIDAL Performing Organization Address [facility]/ZIP Co de Phone Number [facility] INSURANCE BILL [address] [place] [address] * ERYTHROPOIETIN (10/13/2019 12:15 PM CDT) Erythropoietin 10.8 2.6 - 18.5 mIU/mL [facility] INSURANCE BILL Comment: [employer] DxI 800 Immunoassay System ? . Values obtained with different assay methods or kits cannot be used interchangeably. Results cannot be interpreted as absolute evidence of the presence or absence of malignant disease. Blood BLOOD SPECIMEN / Unknown 10/13/2019 12:15 PM CDT 10/13/2019 Narrative Resulting Agency Comment Lab Testing performed at: [facility] ??[facility] [id number] Lucy Girard MD LAB - CHEMISTRY DELFINO VIDAL [facility] INSURANCE BILL [address] [address] documented in this encounter Visit Diagnoses Diagnosis Anemia, unspecified type- Primary ESRD (end stage renal disease) (HCC) End stage renal disease Primary osteoarthritis of left hip Primary localized osteoarthrosis, pelvic region and thigh documented in this encounter Care Teams Casing Material Weigher Relationship Specialty Start Date End Date Kwame Berg MD PCP - General Internal Medicine 01/19/19 [place] [address] [address] Orthopedic Surgery Orthopedic Surgery 10/13/19 documented as of this encounter
--- OUTSIDE RECORDS SUMMARY | 2024-04-25 21:20 | XMS_ITS | Encounter Summary ---
Author Organization [facility] Address [address] [facility] [place] [address] Care Team Providers Care Mother'S Helper Name Role Phone Kwame Berg MD Primary Care Provider [phone] Dylon Agudelo MD Unavailable [phone] Reason for Visit * Reason Onset Date Comments Surgery Verification 01/05/2020 Encounter Details Date Type Department Care Team (Late st Contact Info) Description 01/05/2020 Telephone [facility] Orthopedics [address] [address] [place] [address] [address] Surgery Verification Social History Tobacco Use Types Packs/Day Years [...] * Telephone Encounter - Dominique Botello - 01/05/2020 3:01 PM CDT In clinic , didn't call pt. * Telephone Encounter - Lianet Huffman R - 01/05/2020 2:56 PM CDT Who is calling? self What is the reason for call? Pt called, he states someone called him but did not leave a message, he was to have sx on 9.16 Expected Response from the Clinic? Please call him documented in this encounter Plan of Treatment Upcoming Encounters Date Type Department Care Team (Late st Contact Info) Description 08/23/2024 1:00 PM CDT Appointment [facility] Vascular Services [address] [facility], [address] [place] [address] [place] [address] [facility] [address] [place] [address] [place] [address] [facility] [address] [place] [address] documented as of this encounter Visit Diagnoses Not on filedocumented in this encounter Care Teams Mother'S Helper Relationship Specialty Start Date End Date Kwame Berg MD PCP - General Internal Medicine 01/19/19 [place] [address] [facility] [address] [place] [address] Orthopedic Surgery Orthopedic Surgery 10/13/19 documented as of this encounter
--- OUTSIDE RECORDS SUMMARY | 2024-04-25 21:20 | XMS_ITS | Encounter Summary ---
Author Organization [facility] Address [address] [facility] [place] [address] Care Team Providers Care Fire Watcher Name Role Phone Kwame Berg MD Primary Care Provider Dylon Agudelo MD Unavailable [phone] Reason for Visit * Auth/Cert Specialty Diagnoses / Procedures Referred By Vivienne t Referred To Contact Procedures CREATION ARTERIOVENOUS (AV) FISTULA DIRECT Referral ID Status Reason Start Date Expiration Date Visits Re quested Visits Authorized [id number] 1 1 Encounter Details Date Type Department Care Team (Late st Contact Info) Description 10/20/2019 1:22 PM CDT Anesthesia Event [facility] - Perioperative Surgery [address] [place], [place] [id number] Pako Rosales MD [address] [place] [address] Anesthesia Record Procedure Summary Procedure Name Responsible Anesthesiologist Anesthesia Start Time Anesthesia Stop Time RIGHT UPPER ARM ARTERIOVENOUS FISTULA (Arm) Pako Rosales MD 10/20/19 1322 10/20/19 1434 Events Date Time Event Comment 10/20/2019 1040 1322 An Start 1322 An Start Data 1328 PT Reassessment 1339 Timeout Anesthesia part icipated in timeout at the time documented in the record by nursing. 1428 Electnc Sig 1434 an stop data 1434 An Stop 1434 Handoff Meds Name Total midazolam 2 mg/2mL injection 1 mg fentaNYL 100 mcg/2mL injection 50 mcg propofol 200 mg/20mL injection 230 mg propofol 1000 mg/100mL infusion 15.53 mg ceFAZolin (ANCEF) 2,000 mg in 50 ml IVPB 2 g 0.9% NaCl infusion 400 mL * Agents Name Exp. N2O O2 * Blood No blood administrations on file. Lines, Drains, and Airways Type Details Placement Removal Hemodialysis AV Access 10/20/19; 1426; Fistula; Right Upper Arm 10/20/19 1426 by Clare Mann RN Hemodialysis Tunneled Catheter Subclavian (Right); 05/03/20 10/20/19 1038 by 05/03/20 0000 by Danisha Roman RN Peripheral IV Date: 10/20/19; Time : 103; Orientation: Left; Placed By: KAITLYNN Bernal; Tolerance: Well 10/20/19 1036 by Dolores Goodman RN 10/20/19 1620 by Minna Vences RN Procedural Site (Incision) 10/20/19; 1440; Right; Arm; 10/20/19; 2324 10/20/19 1440 by Fatemeh Sharma RN 10/20/19 2324 by [email or web address], Auto Release documented in this encounter Social [...] as of this encounter Progress Notes * Trinidad Gallo APRN-VISUAL PRESENTATION MANAGER - 10/20/2019 2:42 PM CDT ANESTHESIA POSTOP EVALUATION NOTE Procedure: RIGHT UPPER ARM ARTERIOVENOUS FISTULA (Arm) Jules Mitchell is a 74 year old male Patient Vitals for the past 6 hrs: BP Temp Pulse Resp SpO2 Pain Scale/Observation 10/20/19 1033 128/57 98 ??F (36.7 ??C) 69 16 99 % No/denies pain 10/20/19 1442 162/77 -- 87 16 98 % -- Anesthesia Type: MAC * No Diagnosis Codes [...] Non Reportable Improvement Section (otherwise blank): * Pako Rosales MD - 10/20/2019 10:39 AM CDT ANESTHESIA PREOPERATIVE EVALUATION NOTE Procedure: RIGHT UPPER ARM ARTERIOVENOUS FISTULA (Arm) Vitals: Patient Vitals for the past 6 hrs: BP Temp Pulse Resp SpO2 10/20/19 1033 128/57 98 ??F (36.7 ??C) 69 16 99 % ANESTHESIA PRE-EVALUATION NOTE Physical Exam: Orientation X3 Airway/Mallampati Score: II Neck ROM: full Teeth: edentulous Heart: regular rate rhythm Lungs: normal ANESTHESIA PLAN ASA Score: 3 NPO Status: No solids since midnight and No liquids within 2 hours Anesthesia Plan: MAC Planned Induction: intravenous Planned Postop Destination: PACU Anesthetic plan was discussed with: patient Anesthetic Plan discussion was: Consented The patient's procedural Anesthetic Plan was discussed with the VISUAL PRESENTATION MANAGER. BMI, Height, Weight Tobacco History Estimated body mass index is 25.06 kg/m?? as calculated from the following: Height as of this encounter: 1.575 m (5' 2). Weight as of this encounter: 62.1 kg (137 lb). Social History Tobacco Use Smoking Status Former Smoker ??? Last attempt to quit: 10/12/2012 ??? Years since quittin.0 Smokeless Tobacco Never Used Alcohol History Drug History Social History Substance and Sexual Activity Alcohol Use Not Currently Social History Substance and Sexual Activity Drug Use Never Outpatient Medications: Inpatient Medications: Outpatient Medications Marked as Taking for the 10/20/19 encounter (Hospital Encounter) Medication Sig Last Dose ??? allopurinol Take 100 mg by mouth once daily Unknown ??? amLODIPine Take 5 mg by mouth once daily Taking ??? atorvastatin Take 20 mg by mouth at bedtime Taking ??? docusate sodium Take 100 mg by mouth once daily as needed Taking ??? folic acid Take 1 mg by mouth once daily Taking ??? furosemide Take 80 mg by mouth 2 times daily Taking ??? lisinopril Take 5 mg by mouth once daily Not Taking ??? polyethylene glycol 3350 Take 17 g by mouth once daily as needed Taking ??? rOPINIRole Take 0.5 mg by mouth Three times a week Taking ??? sevelamer carbonate Take 800 mg by mouth 3 times daily with meals ??? sodium bicarbonate Take 325 mg by mouth once daily Not Taking ??? tamsulosin Take 0.4 mg by mouth at bedtime At the same time every day after a meal. ??? traMADol Take 1 tablet by mouth 2 times daily as needed for Pain Taking Current Facility-Administered Medications Medication Dose Last Dose ??? 0.9% NaCl ??? ceFAZolin 2 g Allergies: No Known Allergies Relevant Problems No relevant active problems Problem List: Patient Active Problem List Diagnosis Date Noted ??? Primary osteoarthritis of left hip 06/29/2019 Priority: Not Prioritized Medical History: Past Medical History: Diagnosis Date ??? Cancer 2000 patient/family unsure of type ??? ESRD (end stage renal disease) Evelyn mcmahon [facility],sat 10/11/19 ??? ESRD on dialysis ??? High blood pressure Surgical History: Past Surgical History: Procedure Laterality Date ??? NEGATIVE SURGICAL HISTORY ??? OTHER SURGERY Testicular surgery per nephew but not positive?? Lab Results: Recent Labs Component Name 10/13/19 1215 WBC 6.6 RBC 3.57* HCT 37.3 HGB 11.7* PLTCOUNT 187 MCV 104.5* MCH 32.8 MCHC 31.4 MPV 9.1* Invalid input(s): OSMOLAITY Invalid input(s): PREGTESTUR Recent Labs Component Name 10/13/19 1215 ALBUMIN 3.9 FERRITIN 4,981* IRON 114 TIBC 172* FESAT 66* documented in this encounter Miscellaneous Notes * Anesthesia Transfer of Care - Trinidad Gallo APRN-VISUAL PRESENTATION MANAGER - 10/20/2019 2:34 PM CDT ANESTHESIA TRANSFER OF CARE NOTE Today's Date: 10/20/2019 Date of : 1945 Patient: Odale Long Procedure(s): RIGHT UPPER ARM ARTERIOVENOUS FISTULA Surgeon(s): Primary: Mario Iyer MD Preop Diagnosis: * No Diagnosis Codes entered * Pre-op Meds (From admission, onward) Start Stop Status Route Frequency Ordered 10/20/19 1045 0.9% NaCl infusion 10/19 1044 Dispensed IV PRE-OP CONTINUOUS 10/20/19 1037 10/20/19 1045 ceFAZolin (ANCEF) 2,000 mg in 50 ml IVPB 10/19 1322 Completed IV ONCE 10/20/19 1037 10/20/19 1324 fentaNYL (PF) (SUBLIMAZE) injection -- Sent PRN 10/20/19 1330 10/20/19 1331 heparinized saline 2 units/ml infusion -- Sent CONTINUOUS PRN 10/20/19 1332 10/20/19 1331 lidocaine 1% - EPINEPHrine 1:100,000 injection -- Sent PRN 10/20/19 1331 10/20/19 1045 lidocaine PF (XYLOCAINE MPF) 1 % injection 0.5 mL 10/19 1035 Completed INFILTRATION PRE-OP ONCE 10/20/19 1037 10/20/19 1322 midazolam (VERSED) injection -- Sent PRN 10/20/19 1330 10/20/19 1329 propofol (DIPRIVAN) infusion -- Sent CONTINUOUS PRN 10/20/19 1329 10/20/19 1328 propofol (DIPRIVAN) injection -- Sent PRN 10/20/19 1328 * No Diagnosis Codes entered * . No Known Allergies Vitals: No data found. Lines, Drains, and Airways Type Details Placement Removal Peripheral IV Date: 10/20/19; Time: 1035; Orientation: Left; Location: Wrist; Placed By: KAITLYNN Bernal;Gauge: 20 Gauge; Locals: Trans Dermal; Tolerance: Well 10/20/19 103 by Dolores Goodman RN Intraprocedure I/O Totals 0.9% NaCl infusion Volume infused 300 ml Patient Transfer Location: OPS Transport Airway: spontaneous [...] of report from the receiving PACUteam. ECHO Castro documented in this encounter Plan of Treatment Upcoming Encounters Date Type Department Care Team (Late st Contact Info) Description 08/23/2024 1:00 PM CDT Appointment [facility] Vascular Services [address] [facility], [address] [place] [address] [place] [address] [facility] [address] [place] [address] [place] [address] [facility] [address] [place] [address] documented as of this encounter Visit Diagnoses Not on filedocumented in this encounter Administered Medications Inactive Administered Medications - up to 3 most recent administrations Medication Order MAR Action Action Date Dose Rate Site ceFAZolin (ANCEF) 2,000 mg in 50 ml IVPB 2,000 mg (2 g), at 100 mL/hr, Intravenous, ONCE, 1 dose, On Fri10/20/19 at 1045, Administer 30 minutes prior to surgical incision., Indication for anti-infective therapy: Surgical prophylaxis, Pre-op $ Given 10/20/2019 1:22 PM CDT 2 g fentaNYL (PF) (SUBLIMAZE) injection PRN, Starting on Fri10/20/19 at 1324, Until Fri10/20/19 at 1434, Anesthesia Intra-op $ Given 10/20/2019 1:24 PM CDT 50 mcg midazolam (VERSED) injection PRN, Starting on Fri10/20/19 at 1322, Until Fri10/20/19 at 1434, Anesthesia Intra-op $ Given 10/20/2019 1:22 PM CDT 1 mg propofol (DIPRIVAN) infusion CONTINUOUS PRN, Starting on Fri10/20/19 at 1329, Until Fri10/20/19 at 1434, Anesthesia Intra-op $ New Bag/Syringe 10/20/2019 1:29 PM CDT 25 mcg/kg/min 9.32 mL/hr propofol (DIPRIVAN) injection PRN, Starting on Fri10/20/19 at 1328, Until Fri10/20/19 at 1434, Anesthesia Intra-op $ Given 10/20/2019 2:28 PM CDT 30 mg $ Given 10/20/2019 2:23 PM CDT 30 mg $ Given 10/20/2019 2:19 PM CDT 30 mg documented in this encounter Care Teams Fire Watcher Relationship Specialty Start Date End Date Kwame Berg MD PCP - General Internal Medicine 01/19/19 [place] [id number] [address] Orthopedic Surgery Orthopedic Surgery 10/13/19 documented as of this encounter
--- OUTSIDE RECORDS SUMMARY | 2024-04-25 21:20 | XMS_ITS | Encounter Summary ---
Author Organization [facility] Address [facility] [facility] [place] [address] Care Team Providers Care Stripper Printed Circuit Boards Name Role Phone Kwame Berg MD Primary Care Provider [phone] Dylon Agudelo MD Unavailable [phone] Reason for Visit * Reason Comments Post-Op BLANCHE Brachial AVF Encounter Details Date Type Department Care Team (Late st Contact Info) Description 12/20/2019 11:30 AM CDT Office Visit [facility] Medical [facility] - Surgery [id number] [place] [address], [address] [place] [address] [place] [address] [facility] [address] [place] [address] ESRD (end stage renal disease) (HCC) [...] Pressure - - Pulse - - Temperature 36.5 ??C (97.7 ??F) 12/20/2019 11:46 AM C DT Respiratory Rate - - Oxygen Saturation - - Inhaled Oxygen Concentration - - Weight 63 kg (139 lb) 12/20/2019 11:46 AM CDT Height 157.5 cm (5' 2) 12/20/2019 11:46 AM CDT Body Mass Index 25.42 12/20/2019 11:46 AM CDT documented in this encounter Patient Instructions * Patient Instructions* Edwige Mcgraw - 12/20/2019 11:46 AM CDT Patient's medications and allergies were reviewed with the patient today. Patient was instructed tocontact primary care physician or ordering provider with any questions regarding medications. documented in this encounter Progress Notes * Mario Iyer MD - 12/20/2019 11:41 AM CDT Chief Complaint: ESRD, deep fistula [...] fistula transposition, possible right arm dialysis graft. Past Medical History: Diagnosis Date ??? Cancer 2000 patient/family unsure of type ??? ESRD (end stage renal disease) [facility] ??? ESRD on dialysis ??? High blood pressure Past Surgical History: Procedure Laterality Date ??? OTHER SURGERY Testicular surgery per nephew but not positive? VASCULAR PROCEDURE/SURGERY 10/20/2019 RIGHT UPPER ARM ARTERIOVENOUS FISTULA Outpatient Medications Marked as Taking for [...] mouth 2 times daily ??? HYDROcodone-acetaminophen (NORCO) 5-325 MG tablet Take 1 [...] Pain 60 tablet 0 No Known Allergies Family History Problem Relation Name Age of Onset ??? Hypertension Mother ??? Hypertension Sister ??? Diabetes - Type 2 Sister Social History Tobacco Use ??? Smoking status: Former Smoker Last attempt to quit: 10/12/2012 Years since quittin.1 ??? Smokeless tobacco: [...] warm, patent right arm fistula. Neurologic: Intact. Impression/Plan: ESRD. Will plan for right arm dialysis fistula transposition, possible right arm dialysis graft. I have discussed the risks, benefits and alternatives to surgery with the patient who understands and wishes to proceed. He will call to schedule after his upcoming hip surgery. Past Medical History: Diagnosis Date ??? Cancer 1999 patient/family unsure of type ??? ESRD (end stage renal disease) Evelyn mirandaCamillana -,,sat 11/2419 ??? ESRD on dialysis ??? High blood pressure documented in this encounter Plan of Treatment Upcoming Encounters Date Type Department Care Team (Late st Contact Info) Description 08/23/2024 1:00 PM CDT Appointment [facility] Vascular Services [address] [facility], [address] [place] [address] [place] [address] [facility] [address] [place] [phone] [place] [address] [facility] [address] [place] [address] documented as of this encounter Visit Diagnoses Diagnosis ESRD (end stage renal disease) (HCC)- Primary End stage renal disease documented in this encounter Care Teams Stripper Printed Circuit Boards Relationship Specialty Start Date End Date Kwame Berg MD PCP - General Internal Medicine 01/19/19 [place] [address] [facility] [address] [place] [phone] Orthopedic Surgery Orthopedic Surgery 10/13/19 documented as of this encounter
--- OUTSIDE RECORDS SUMMARY | 2024-04-25 21:20 | XMS_ITS | Encounter Summary ---
Author Organization [facility] Address [address] [place] [address] Care Team Providers Care Lighting Equipment Operator Name Role Phone Kwame Berg MD Primary Care Provider [phone] Dylon Agudelo MD Unavailable [phone] Reason for Visit * Auth/Cert Specialty Diagnoses / Procedures Referred By Vivienne t Referred To Contact Procedures CREATION ARTERIOVENOUS (AV) FISTULA DIRECT Referral ID Status Reason Start Date Expiration Date Visits Re quested Visits Authorized [id number] 1 1 Encounter Details Date Type Department Care Team (Latest Contact Info) Description 10/20/2019 9:51 AM CDT - 10/20/2019 5:24 PM CDT Hospital Encounter [facility] [address] [place] [address] [place] [address] [facility] [address] [place] [address] Surgery General Discharge Disposition: Home or [...] (end stage renal disease) ? Evelyn mcmahon indra,,sat 10/11/19 ??? High blood pressure ? documented in this encounter OR Notes * OR Surgeon - Mario Iyer MD - 10/20/2019 2:30 PM CDT [facility] OPERATIVE REPORT PATIENT: Jules Mitchell MR#: [id number] ADMIT DATE: 10/20/2019 9:51 AM [facility] # [id number] DATE OF SURGERY: 10/20/2019 : 1945 PHYSICIAN: [...] Info) Description 08/23/2024 1:00 PM CDT Appointment [facility] Vascular Services [address] [place] [address], [address] [address] Mario Iyer MD [address] [place] [address] [place] [id number] [place] [address] documented as of this encounter Procedures Procedure Name Priority Date/Time Associated Diagnosis Comments CREATION ARTERIOVENOUS (AV) FISTULA DIRECT 10/20/2019 1:12 PM CDT BASIC METABOLIC PANEL (CALCIUM TOTAL) STAT 10/20/2019 10:25 AM CDT Pre-op evaluation documented in this encounter Results * (ABNORMAL) BASIC METABOLIC PANEL (CALCIUM TOTAL) (10/20/2019 10:25 AM CDT) Pathologist [facility] Glucose 93 70 - 105 mg/dL 10/20/2019 10:52 AM CDT [facility] Sodium 135(L) 136 - 145 mmol/L 10/20/2019 10:52 AM CDT [facility] Potassium 5.1 3.5 - 5.1 mmol/L 10/20/2019 10:52 AM T [facility] Chloride 100 98 - 107 mmol/L 10/20/2019 10:52 AM T [facility] CO2 24 23 - 31 mmol/L 10/20/2019 10:52 AM CDT [facility] Calcium 9.6 8.4 - 10.4 mg/dL 10/20/2019 10:52 AM T [facility] Anion Gap 11 8 - 16 mmol/L 10/20/2019 10:52 AM T [facility] BUN 44(H) 8.4 - 25.7 mg/dL 10/20/2019 10:52 AM T [facility] Creatinine 6.22(H) 0.72 - 1.25 mg/dL 10/20/2019 10:52 AM [facility] eGFR by MDRD 9 mL/min/1.7 3m2 10/20/2019 10:52 AM T [facility] eGFR by MDRD 11 mL/min/1.7 3m2 10/20/2019 10:52 AM [facility] Blood BLOOD SPECIMEN / Unknown Venipuncture / Unknown 10/20/2019 10:25 AM CDT 10/20/2019 10:34 AM CDT Megan Ca DO LAB - CHEMISTRY DELFINO [facility] Organization Address City/State/ZIP Co de Phone Number [facility] [address] [place] [address] documented in this encounter Visit Diagnoses Diagnosis Pre-op evaluation- Primary Preoperative examination, unspecified ESRD (end stage [...] ($ Given - Prov ider: Trinidad Gallo, DIVER ASSISTANT-AIR CONTROL/ANTI AIR WARFARE OFFICER) lidocaine PF (XYLOCAINE MPF) 1 % injection [...] MD) documented in this encounter Care Teams Lighting Equipment Operator Relationship Specialty Start Date End Date Kwame Berg MD PCP - General Internal Medicine 01/19/19 [place] [address] [phone] Orthopedic Surgery Orthopedic Surgery 10/13/19 documented as of this encounter
--- OUTSIDE RECORDS SUMMARY | 2024-04-25 21:20 | XMS_ITS | Encounter Summary ---
Author Organization [facility] Address [address] [place] [address] Care Team Providers Care Health Companion Name Role Phone Kwame Berg MD Primary Care Provider [phone] Dylon Agudelo MD Unavailable [phone] Encounter Details Date Type Department Care Team (Latest Contact Info) Description 10/15/2019 Travel Social History Tobacco Use Types Packs/Day [...] Info) Description 08/23/2024 1:00 PM CDT Appointment [facility] Vascular Services [address] [facility], [address] [place] [address] [place] [address] [facility] [address] [place] [address] [place] [address] [facility] [address] [place] [address] documented as of this encounter Visit Diagnoses Not on filedocumented in this encounter Care Teams Health Companion Relationship Specialty Start Date End Date Kwame Berg MD PCP - General Internal Medicine 01/19/19 [place] [address] [address] Orthopedic Surgery Orthopedic Surgery 10/13/19 documented as of this encounter
--- OUTSIDE RECORDS SUMMARY | 2024-04-25 21:20 | XMS_ITS | Encounter Summary ---
Author Organization [facility] Address [address] [facility] [place] [address] Care Team Providers Care Dry Kiln Operator Name Role Phone Kwame Berg MD Primary Care Provider [phone] Dylon Agudelo MD Unavailable [phone] Encounter Details Date Type Department Care Team (Late Contact Info) Description 12/22/2019 Orders Only [facility] [address] [place] [address] Abigail Rueda, SENIOR CLINICAL DATA COORDINATOR-SHARE DAIRY FARMER [address] [place] [address] Social History Tobacco Use Types Packs/Day Years [...] 1:00 PM CDT Appointment [facility] Health Vascular Services [address] [facility], [address] [place] [address] [place] [address] [facility] [address] [place] [phone] [place] [address] [facility] [address] [place] [address] documented as of this encounter Visit Diagnoses Not on filedocumented in this encounter Care Teams Dry Kiln Operator Relationship Specialty Start Date End Date Kwame Berg MD PCP - General Internal Medicine 01/19/19 [place] [address] [facility] [address] [place] [phone] Orthopedic Surgery Orthopedic Surgery 10/13/19 documented as of this encounter
--- OUTSIDE RECORDS SUMMARY | 2024-04-25 21:20 | XMS_ITS | Encounter Summary ---
Author Organization [facility] Address [address] [facility] [place] [address] Care Team Providers Care Magazine Designer Name Role Phone Kwame Berg MD Primary Care Provider [phone] Dylon Agudelo MD Unavailable [phone] Reason for Visit * Reason Onset Date Comments Question 10/15/2019 Encounter Details Date Type Department Care Team (Late st Contact Info) Description 10/15/2019 Telephone [facility] Orthopedics [address] [address] [place] [address] [address] Question Social History Tobacco Use Types Packs/Day [...] * Telephone Encounter - Dominique Botello - 10/15/2019 10:12 AM CDT Please call pt back to schedule him for an appointment as previously discussed in [employer] message. * Telephone Encounter - Maribel Doyle - 10/15/2019 9:54 AM CDT Who is calling? Self What is the reason for call? Calling back to schedule surgery. Expected Response from the Clinic? Call back documented in this encounter Plan of Treatment Upcoming Encounters Date Type Department Care Team (Late st Contact Info) Description 08/23/2024 1:00 PM CDT Appointment [facility] Vascular Services [address] [facility], [address] [place] [address] [place] [address] [facility] [address] [place] [address] [place] [address] [facility] [address] [place] [address] documented as of this encounter Visit Diagnoses Not on filedocumented in this encounter Care Teams Magazine Designer Relationship Specialty Start Date End Date Kwame Berg MD PCP - General Internal Medicine 01/19/19 [place] [address] [facility] [address] [place] [address] Orthopedic Surgery Orthopedic Surgery 10/13/19 documented as of this encounter
--- OUTSIDE RECORDS SUMMARY | 2024-04-25 21:20 | XMS_ITS | Encounter Summary ---
Author Organization [facility] Address [address] [facility] [place] [address] Care Team Providers Care Baking Factory Worker Name Role Phone Kwame Berg MD Primary Care Provider [phone] Reason for Visit * Reason Onset Date Comments Update 09/30/2019 Encounter Details Date Type Department Care Team (Late Contact Info) Description 09/30/2019 Telephone [facility] Cancer Care [address] [place] [address] [place]ard [place] [id number] [place] [address] Update Social History Tobacco Use Types Packs/Day Years Used Date Smoking Tobacco: Never Assessed Sex and Gender Information Value Date Recorded Sex Assigned at Not on file Gender Identity Not on file Sexual Orientation Not on file documented as of this encounter Miscellaneous Notes * Telephone Encounter - Spring Andrade RN - 09/30/2019 12:04 PM CDT Noted * Telephone Encounter - Gaye New - 09/30/2019 9:46 AM CDT fyi new patient referral for Dy A from Dr Agudelo for anemia documented in this encounter Plan of Treatment Upcoming Encounters Date Type Department Care Team (Late st Contact Info) Description 08/23/2024 1:00 PM CDT Appointment [facility] Vascular Services [address] [facility], [address] [place] [address] [place] [address] [facility] [address] [place] [phone] [place] [address] [facility] [address] [place] [address] documented as of this encounter Visit Diagnoses Not on filedocumented in this encounter Care Teams Baking Factory Worker Relationship Specialty Start Date End Date Kwame Berg MD PCP - General Internal Medicine 01/19/19 documented as of this encounter
--- OUTSIDE RECORDS SUMMARY | 2024-04-25 21:20 | XMS_ITS | Encounter Summary ---
Author Organization [facility] Address [address] [place] [address] Care Team Providers Care Management Psychologist Name Role Phone Kwame Berg MD Primary Care Provider [phone] Dylon Agudelo MD Unavailable [phone] Encounter Details Date Type Department Care Team (Latest Contact Info) Description 10/13/2019 Travel Social History Tobacco Use Types Packs/Day [...] Info) Description 08/23/2024 1:00 PM CDT Appointment [facility] Health Vascular Services [address] [address], [address] [place] [address] [place] [address] [facility] [address] [place] [address] [place] [address] [facility] [address] [place] [address] documented as of this encounter Visit Diagnoses Not on filedocumented in this encounter Care Teams Management Psychologist Relationship Specialty Start Date End Date Kwame Berg MD PCP - General Internal Medicine 01/19/19 [place] [address] [address] Orthopedic Surgery Orthopedic Surgery 10/13/19 documented as of this encounter
--- OUTSIDE RECORDS SUMMARY | 2024-04-25 21:20 | XMS_ITS | Encounter Summary ---
Author Organization [facility] Address [address] [place] [address] Care Team Providers Care Precision Lens Polisher Name Role Phone Kwame Berg MD Primary Care Provider [phone] Dylon Agudelo MD Unavailable [phone] Encounter Details Date Type Department Care Team (Latest Contact Info) Description 12/24/2019 Travel Social History Tobacco Use Types Packs/Day [...] Info) Description 08/23/2024 1:00 PM CDT Appointment [facility] Health Vascular Services [address] [facility], [address] [place] [address] [place] [address] [facility] [address] [place] [address] [place] [address] [facility] [address] [place] [address] documented as of this encounter Visit Diagnoses Not on filedocumented in this encounter Care Teams Precision Lens Polisher Relationship Specialty Start Date End Date Kwame Berg MD PCP - General Internal Medicine 01/19/19 [place] [address] [address] Orthopedic Surgery Orthopedic Surgery 10/13/19 documented as of this encounter
--- OUTSIDE RECORDS SUMMARY | 2024-04-25 21:20 | XMS_ITS | Encounter Summary ---
Author Organization [facility] Address [address] [place] [address] Care Team Providers Care Pilot Boat Operator Name Role Phone Kwame Berg MD Primary Care Provider [phone] Dylon Agudelo MD Unavailable [phone] Encounter Details Date Type Department Care Team (Latest Contact Info) Description 11/04/2019 Travel Social History Tobacco Use Types Packs/Day [...] Appointment [facility] Health Vascular Services [address] [facility], [address] [place] [address] [place] [address] [facility] [address] [place] [address] [place] [address] [facility] [address] [place] [address] documented as of this encounter Visit Diagnoses Not on filedocumented in this encounter Care Teams Pilot Boat Operator Relationship Specialty Start Date End Date Kwame Berg MD PCP - General Internal Medicine 01/19/19 [place] [address] [address] Orthopedic Surgery Orthopedic Surgery 10/13/19 documented as of this encounter
--- OUTSIDE RECORDS SUMMARY | 2024-04-25 21:20 | XMS_ITS | Encounter Summary ---
Author Organization [facility] Address [address] [facility] [facility] [place] [address] Care Team Providers Care Sole Sewer Hand Name Role Phone Kwame Berg MD Primary Care Provider [phone] Dylon Agudelo MD Unavailable [phone] Reason for Visit * Reason Onset Date Comments Discuss Surgery 12/20/2019 Encounter Details Date Type Department Care Team (Late st Contact Info) Description 12/20/2019 Telephone [facility] Orthopedics [address] [address] [place] [address] [address] Discuss Surgery Social History Tobacco Use Types Packs/Day Years [...] encounter Miscellaneous Notes * Telephone Encounter - Paz Ponce RN - 12/20/2019 3:38 PM CDT Spoke to patient regarding COVID-19 procedures for upcoming surgery. Patient verbalizes understanding. documented in this encounter Plan of Treatment Upcoming Encounters Date Type Department Care Team (Late st Contact Info) Description 08/23/2024 1:00 PM CDT Appointment [facility] Vascular Services [address] [facility], [address] [place] [address] [place] [address] [facility] [address] [place] [address] [place] [address] [facility] [address] [place] [address] documented as of this encounter Visit Diagnoses Not on filedocumented in this encounter Care Teams Sole Sewer Hand Relationship Specialty Start Date End Date Kwame Berg MD PCP - General Internal Medicine 01/19/19 [place] [address] [facility] [address] [place] [address] Orthopedic Surgery Orthopedic Surgery 10/13/19 documented as of this encounter
--- OUTSIDE RECORDS SUMMARY | 2024-04-25 21:20 | XMS_ITS | Encounter Summary ---
Author Organization [facility] Address [address] [facility] [place] [address] Care Team Providers Care Rn Clinical Research Name Role Phone Kwame Berg MD Primary Care Provider [phone] Dylon Agudelo MD Unavailable [phone] Reason for Visit * Reason Comments Follow-up left hip Encounter Details Date Type Department Care Team (Latest Contact Info) Description 11/19/2019 10:20 AM CDT Office Visit [facility] Orthopedics [address] [address] [place] [address] [address] Primary osteoarthritis of left hip (Primary Dx) Social History Tobacco Use Types [...] Progress Notes * Dylon Agudelo MD - 11/19/2019 10:47 AM CDT ORTHOPAEDIC CLINIC NOTE NAME: Jules Mitchell DATE OF SERVICE: DATE: 1945 PCP: Kwame Berg MD Chief Complaint Patient presents with ??? Follow-up left hip HISTORY: Jules Mitchell is a 74 year old male who presents to discuss his left hip pain. He has a PMH ESRD. He saw Dr. Girard who helped address his anemia before surgery. Hgb on 10/12 was 11.7. He is experiencing debilitating pain. He cannot ambulate without a walker. He does have an AV fistula plannedwith Dr. Iyer and this needs to be coordinated. ALLERGIES: Allergies as of 11/19/2019 ??? (No Known Allergies) PHYSICAL EXAMINATION: General appearance: alert, cooperative, no distress. Extremities: Skin: normal Swelling: none Tenderness: mild ROM: F85, F/IR 0, F/ER 10 Strength: 4 on 5 Gait: walker Neurological Exam: normal Vascular Exam: normal RADIOGRAPHS: AP and lateral X-rays of the left hip reveal severe Left hip OA with acetabular remodeling and limb length discrepancy ASSESSMENT: left hip OA PLAN: The patient currently experiences severe pain on a daily basis and is markedly limited in activities of daily living including ambulation and decreased standing endurance. Maximal medical treatment including activity modification and NSAIDs have not helped improve their function. Secondary to the advanced nature of the patient's degenerative joint disease and the severity of their symptoms, further attempts at nonsurgical treatment are contraindicated as they have no realistic chance at providing symptomatic or functional improvement. On this basis we have recommended left superior total hip arthroplasty. We had a prolonged discussion about risks, benefits, alternatives, and complications including but not limited to bleeding, infection, leg-length discrepancy, instability, neurovascular injury, intraoperative or postoperative fracture, and deep venous thrombosis. The patient has expressed a desire to proceed with reconstructive surgery. We will proceed with the appropriate preoperative medical evaluations in order to minimize the perioperative risk and we will schedule surgery at their convenience. * Dominique Botello - 11/19/2019 10:36 AM CDT left hip documented in this encounter Procedure Notes * Debi Tapia RT(R) - 11/19/2019 10:30 AM CDTAssociated Order(s): XR HIP LEFT 2VW OR MORE See progress notes for results documented in this encounter Plan of Treatment Upcoming Encounters Date Type Department Care Team (Late st Contact Info) Description 08/23/2024 1:00 PM CDT Appointment [facility] Vascular Services [address] [facility], [address] [place] [address] [place] [address] [facility] [address] [place] [address] [place] [address] [facility] [address] [place] [address] documented as of this encounter Procedures Procedure Name Priority Date/Time Associated Diagnosis Comments XR HIP LEFT 2VW OR MORE Routine 11/19/2019 10:29 AM CDT Primary osteoarthritis of left hip documented in this encounter Results * XR HIP LEFT 2VW OR MORE (11/19/2019 10:29 AM CDT) Anatomical Region Laterality Modality Pelvis, Lower Extremity Computed Radiography Narrative 11/19/2019 10:30 AM CDT Debi Tapia RT(R) ? 11/22/2019 ??9:00 AM See progress notes for results Dylon Agudelo MD DIAGNOSTIC IMAGING O RDERABLES documented in this encounter Visit Diagnoses Diagnosis Primary osteoarthritis of left hip- Primary Primary localized osteoarthrosis, pelvic region and thigh Primary osteoarthritis of left hip Primary localized osteoarthrosis, pelvic region and thigh documented in this encounter Care Teams Rn Clinical Research Relationship Specialty Start Date End Date Kwame Berg MD PCP - General Internal Medicine 01/19/19 [place] [address] [facility] [address] [place] [address] Orthopedic Surgery Orthopedic Surgery 10/13/19 documented as of this encounter
--- OUTSIDE RECORDS SUMMARY | 2024-04-25 21:20 | XMS_ITS | Encounter Summary ---
Author Organization [facility] Address [address] [address] Care Team Providers Care Dining Room Attendant Name Role Phone Kwame Berg MD Primary Care Provider [phone] Dylon Agudelo MD Unavailable [phone] Encounter Details Date Type Department Care Team (Latest Contact Info) Description 11/19/2019 10:30 AM CDT Ancillary Procedure [facility] Orthopedics - Radiology [address] [place] [address] [place] [address] [facility] [address] [place] [address] Primary osteoarthritis of left hip Social History [...] [facility] Vascular Services [address] [facility], [address] [place] [address] [place] [address] [facility] [address] [place] [address] [place] [address] [facility] [address] [place] [address] documented as of this encounter Procedures Procedure Name Priority Date/Time Associated Diagnosis Comments XR HIP LEFT 2VW OR MORE Routine 11/19/2019 10:29 AM CDT Primary osteoarthritis of left hip documented in this encounter Results * XR HIP LEFT 2VW OR MORE (11/19/2019 10:29 AM CDT) Anatomical Region Laterality Modality Pelvis, Lower Extremity Computed Radiography Narrative 11/19/2019 10:30 AM CDT Debi Tapia, RT(R) ? 11/22/2019 ??9:00 AM See progress notes for results Dylon Agudelo MD DIAGNOSTIC IMAGING O RDERABLES documented in this encounter Visit Diagnoses Diagnosis Primary osteoarthritis of left hip Primary localized osteoarthrosis, pelvic region and thigh documented in this encounter Care Teams Dining Room Attendant Relationship Specialty Start Date End Date Kwame Berg MD PCP - General Internal Medicine 01/19/19 [place] [address] [facility] [address] [place] [address] Orthopedic Surgery Orthopedic Surgery 10/13/19 documented as of this encounter
--- OUTSIDE RECORDS SUMMARY | 2024-04-25 21:20 | XMS_ITS | Encounter Summary ---
Author Organization [facility] Address [address] [place] [address] Care Team Providers Care Cardboard Inserter Name Role Phone Kwame Berg MD Primary Care Provider [phone] Dylon Agudelo MD Unavailable Reason for Visit * Reason Onset Date Comments Covid-19 Home Management 01/06/2020 Covid t est ordered, pt going to [facility] for test 01/08, service center number given to nephew Encounter Details Date Type Department Care Team (Late Contact Info) Description 01/06/2020 Telephone [facility] Pretesting Center [address] [facility] [address] [place] [address] Madelyn Quintanilla, RN Covid-19 Home Management (Covid test ordered, pt going to [facility] for test 01/08, service center number given to nephew) Social History Tobacco Use Types Packs/Day Years [...] Appointment [facility] Vascular Services [address] [facility], [address] [place] [address] [place] [address] [place] [address] [place] [address] [place] [address] documented as of this encounter Results * SARS-COV-2 (COVID-19) PRE-SURGICAL/PROCEDURE (01/09/2020 2:00 PM CDT) COVID-19 PCR Not detected Not detected, Invalid 01/10/2020 2:07 PM CDT [facility] MICROBIOLOGY Microbiology SPECIMEN FROM NASOPHARYNGEAL STRUCTURE / Unknown Collection / Unknown 01/09/2020 2:00 PM CDT 01/09/2020 7:26 PM CDT Narrative [facility] MICROBIOLOGY - 01/10/2020 2:07 PM CDT This Real Time RT-PCR assay was developed and its performance characteristics determined by [facility]. This test has been [...] Agudelo MD LAB - MICROBIOLOGY O RDERABLES [facility] MICROBIOLOGY [address] [place] [address], [place] [phone] documented in this encounter Visit Diagnoses Diagnosis Preop examination- Primary Preoperative examination, unspecified documented in this encounter Care Teams Cardboard Inserter Relationship Specialty Start Date End Date Kwame Berg MD PCP - General Internal Medicine 01/19/19 [place] [address] [address] Orthopedic Surgery Orthopedic Surgery 10/13/19 documented as of this encounter
--- OUTSIDE RECORDS SUMMARY | 2024-04-25 21:20 | XMS_ITS | Encounter Summary ---
Author Organization [facility] Address [address] [facility] [place] [address] Care Team Providers Care Technical Delivery Manager Name Role Phone Kwame Berg MD Primary Care Provider [phone] Dylon Agudelo MD Unavailable [phone] Reason for Visit * Reason Onset Date Comments Covid-19 Home Management 12/20/2019 PT TO T EST AT [facility] 12/23. INSTRUCTED TO QUARANTINE. PT TO HAVE DIALYSIS FRIDAY, SO INSTRUCTED TO CALL DR. AGUDELO'S OFFICE TO VERIFY. Encounter Details Date Type Department Care Team (Late st Contact Info) Description 12/20/2019 Telephone [facility] Pretesting Center [address] [facility] [address] [place] [address] Heavenly Roe RN Covid-19 Home Management (PT TO TEST AT [facility] 12/23. INSTRUCTED TO QUARANTINE. PT TO HAVE DIALYSIS FRIDAY, SO INSTRUCTED TO CALL DR. AGUDELO'S OFFICE TO VERIFY.) Social History Tobacco Use Types Packs/Day Years [...] encounter Miscellaneous Notes * Telephone Encounter - Heavenly Roe RN - 12/20/2019 10:41 AM CDT Called to prescreen for any signs of COVID illness or exposure. Patient reports: 1. In the last 24 hours, a fever (>100.0) (or felt like you had a fever) or a new or worsening cough, trouble breathing, a sudden loss of taste or smell, a headache, a sore throat or muscle pains?YES [] NO [x] 2. In the last 14 days, have you been tested for COVID-19, in close contact with anyone that has been tested for COVID-19, or anyone that has been instructed to self-quarantine? YES [] NO [x] 3. Have you been taking any fever or pain reducing medications for COVID-related symptoms? YES [] NO [x] [] Patient answered YES to one or more of the above questions. Informed patient we need to further assess whether or not patient should proceed with appointment. Confirmed call-back number and routedmessage to Provider for further evaluation. [x] Patient answered NO to all screening questions. Informed patient: o [facility] has recently implemented a new policy regarding cloth masks at all of our offices. Forthe safety and protection of our patients, visitors and caregivers, everyone must wear a cloth facecovering while during your visit. We ask that you wear a cloth face covering or mask to your appointment. [x] Called x 1 [] Called x 2 [x] Left message to C/B [] Unable to leave message [] UNABLE TO REACH PATIENT PRIOR TO APPOINTMENT documented in this encounter Plan of Treatment Upcoming Encounters Date Type Department Care Team (Late st Contact Info) Description 08/23/2024 1:00 PM CDT Appointment [facility] Vascular Services [address] [place] [address], [address] [place] [address] [place] [address] [facility] [address] [place] [id number] [place] [id number] [place] [address] [address] [place] [address] documented as of this encounter Results * SARS-COV-2 (COVID-19) PRE-SURGICAL/PROCEDURE (12/24/2019 1:35 PM CDT) COVID-19 PCR Not detected Not detected, Invalid 12/25/2019 10:48 AM CDT [facility] MICROBIOLOGY Microbiology SPECIMEN FROM NASOPHARYNGEAL STRUCTURE / Unknown Collection / Unknown 12/24/2019 1:35 PM CDT 12/24/2019 2:36 PM CDT Narrative [facility] MICROBIOLOGY - 12/25/2019 10:48 AM CDT This nucleic acid amplification assay performance was validated by [facility]. This test has been [...] Agudelo MD LAB - MICROBIOLOGY O RDERABLES [facility] MICROBIOLOGY [address] [place], [place] [address] [place] [address] documented in this encounter Visit Diagnoses Diagnosis Preop examination- Primary Preoperative examination, unspecified documented in this encounter Care Teams Technical Delivery Manager Relationship Specialty Start Date End Date Kwame Berg MD PCP - General Internal Medicine 01/19/19 [place] [address] [address] Orthopedic Surgery Orthopedic Surgery 10/13/19 documented as of this encounter
--- OUTSIDE RECORDS SUMMARY | 2024-04-25 21:20 | XMS_ITS | Encounter Summary ---
Author Organization [facility] Address [facility] [facility] [place] [address] Care Team Providers Care Insurance Broker Name Role Phone Kwame Berg MD Primary Care Provider Dylon Agudelo MD Unavailable [phone] Reason for Visit * Reason Comments Post-Op BLANC[facility] AVF Encounter Details Date Type Department Care Team (Late st Contact Info) Description 11/01/2019 11:30 AM CDT Office Visit [facility] Medical [facility] - Surgery [address] [place] [address], [address] [place] [address] [place] [address] [address] ESRD (end stage renal disease) [...] - - Weight 68 kg (150 lb) 11/01/2019 11:43 AM CDT Height 157.5 cm (5' 2) 11/01/2019 11:43 AM CDT Body Mass Index 27.44 11/01/2019 11:43 AM CDT documented in this encounter Patient Instructions * Patient Instructions* Imelda Mancia LPN - 11/01/2019 11:44 AM CDT Patient's medications and allergies were reviewed with the patient today. Patient was instructed tocontact primary care physician or ordering provider with any questions regarding medications. documented in this encounter Progress Notes * Mario Iyer MD - 11/01/2019 11:42 AM CDT Jules Mitchell is a 74 year old male who is here for a postoperative visit following Right upper arm deep brachial vein arteriovenous fistula The patient is referred by Naveen Blackman MD. PCP is Kwame Berg MD. Incision: Healing well, sutures removed Thrill/Bruit: Present Plan: Will follow up in one month documented in this encounter Plan of Treatment Upcoming Encounters Date Type Department Care Team (Late st Contact Info) Description 08/23/2024 1:00 PM CDT Appointment [facility] Vascular Services [address] [place] [address], [address] [address] [place] [id number] [place] [address] [place] [address] [address] documented as of this encounter Visit Diagnoses Diagnosis ESRD (end stage renal disease) (HCC)- Primary End stage renal disease documented in this encounter Care Teams Insurance Broker Relationship Specialty Start Date End Date Kwame Berg MD PCP - General Internal Medicine 01/19/19 [place] [address] [phone] Orthopedic Surgery Orthopedic Surgery 10/13/19 documented as of this encounter
--- OUTSIDE RECORDS SUMMARY | 2024-04-25 21:20 | XMS_ITS | Encounter Summary ---
Author Organization [facility] Address [address] [facility] [place] [address] Care Team Providers Care Nut Sorter Name Role Phone Kwame Berg MD Primary Care Provider [phone] Dylon Agudelo MD Unavailable [phone] Reason for Visit * Auth/Cert (Routine) Specialty Diagnoses / Procedures Referred By Contac t Referred To Contact Diagnoses Unilateral primary osteoarthritis, left hip Procedures [place] [address] [address] [address] Referral ID Status Reason Start Date Expiration Date Visits Re quested Visits Authorized [id number] 12/02/2019 12/01/2020 1 1 Encounter Details Date Type Department Care Team (Late st Contact Info) Description 12/27/2019 10:33 AM CDT - 12/27/2019 1:03 PM CDT Surgery [facility] - Perioperative Surgery [address] [place] [address] [place] [address] [address] Not Performed SURGICAL CASE DISCONTINUED PREOP Social History Tobacco Use Types Packs/Day Years [...] Sign Reading Time Taken Comments Blood Pressure 178/75 12/27/2019 7:57 AM CDT Pulse 76 12/27/2019 7:57 AM CDT Temperature 36.6 ??C (97.8 ??F) 12/27/2019 7:57 AM CD T Respiratory Rate 18 12/27/2019 7:57 AM CDT Oxygen Saturation 96% 12/27/2019 7:57 AM CDT Inhaled Oxygen Concentration - - Weight 62.8 kg (138 lb 6.4 oz) 12/27/2019 7:51 A M CDT Height 157.5 cm (5' 2) 12/27/2019 7:51 AM CDT Body Mass Index 25.31 12/27/2019 7:51 AM CDT documented in this encounter Medications [...] UNIT/ML injectionIndications :ESRD (end stage renal disease) ([facility]) Inject 4,000 Units subcutaneously every 7 [...] 11/19/2019 01/20/2020 documented as of this encounter H&P Notes * Dylon Agudelo MD - 12/27/2019 7:24 AM CDT ORTHOPAEDIC CLINIC NOTE ?? NAME: Jules Mitchell DATE OF SERVICE: DATE: 1945 PCP: Kwame Berg MD ?? Chief Complaint Patient presents with ??? Follow-up ? left hip HISTORY: Jules Mitchell is a 74 year old male who presents to discuss his left hip pain. 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 He has a PMH of ESRD. He does have an AV fistula placed by Dr. Iyer. He saw Dr. Girard who helped address his anemia before surgery. His hgb on 10/12 was 11.7. He is experiencing debilitating daily pain. He cannot ambulate without a walker. ALLERGIES: Allergies as of 11/19/2019 ??? (No Known Allergies) ? PHYSICAL EXAMINATION: General appearance: alert, cooperative, no distress. Extremities: Skin: normal Swelling: none Tenderness: mild ROM: F85, F/IR 0, F/ER 10 Strength: 4 on 5 Gait: walker Neurological Exam: normal Vascular Exam: DP dopplerable ?? RADIOGRAPHS: AP and lateral X-rays of the left hip reveal severe Left hip OA with acetabular remodeling and limb length discrepancy ?? ASSESSMENT: left hip OA ?? PLAN: The patient currently experiences severe pain [...] improvement. ?? On this basis we have recommended left superior total hip arthroplasty. We had a prolonged discussion about risks, benefits, alternatives, and complications including but not limited to bleeding, infection, leg-length discrepancy, instability, neurovascular injury, intraoperative or postoperative fracture, and deep venous thrombosis. The patient has expressed a desire to proceed with reconstructive surgery. Today, his K is 6.3. Anesthesia does not believe it is safe to proceed with surgery. We will reschedule for Fri01/12/20 so that he can have dialysis on the Friday before. documented in this encounter Plan of Treatment Upcoming Encounters Date Type Department Care Team (Late st Contact Info) Description 08/23/2024 1:00 PM CDT Appointment [facility] [address] [facility], [address] [place] [address] [place] [address] [facility] [address] [place] [phone] [place] [address] [facility] [address] [place] [id number] documented as of this encounter Procedures Procedure Name Priority Date/Time Associated Diagnosis Comments POTASSIUM BLOOD STAT 12/27/2019 8:37 AM CDT Preop examination GLUCOSE - POINT OF CARE Routine 12/27/2019 7:48 AM CDT COMPREHENSIVE METABOLIC PANEL STAT 12/27/2019 7:34 AM CDT documented in this encounter Results * (ABNORMAL) POTASSIUM BLOOD (12/27/2019 8:37 AM CDT) Potassium 6.2(HH) 3.5 - 5.1 mmol/L 12/27/2019 8:54 AM CDT [facility] Blood BLOOD SPECIMEN / Unknown Venipuncture / Unknown 12/27/2019 8:37 AM CDT 12/27/2019 8:39 AM CDT Megan Ca DO LAB - CHEMISTRY DELFINO VIDAL Performing Organization Address [facility] de Phone Number [facility] [address] [place] [address] * GLUCOSE - POINT OF CARE (12/27/2019 7:48 AM CDT) Glucose WB/POC 79 70 - 106 mg/dL 12/27/2019 7:50 AM CDT [facility] Specimen Type Venous 12/27/2019 7:50 AM CDT [facility] Blood BLOOD SPECIMEN / Unknown 12/27/2019 7:48 AM CDT 12/27/2019 7:50 AM CDT Dylon Agudelo MD LAB - POINT OF CARE ORDERABLES Performing Organization Address [facility] Co de Phone Number [facility] [address] [place] [address] * (ABNORMAL) COMPREHENSIVE METABOLIC PANEL (12/27/2019 7:34 AM CDT) Glucose 88 70 - 105 mg/dL 12/27/2019 8:29 AM CDT [facility] Sodium 140 136 - 145 mmol/L 12/27/2019 8:29 AM CDT [facility] Potassium 6.3(HH) 3.5 - 5.1 mmol/L 12/27/2019 8:29 AM CDT [facility] Chloride 98 98 - 107 mmol/L 12/27/2019 8:29 AM CDT [facility] CO2 29 23 - 31 mmol/L 12/27/2019 8:29 AM CDT [facility] Calcium 9.7 8.4 - 10.4 mg/dL 12/27/2019 8:29 AM CDT [facility] Anion Gap 13 8 - 16 mmol/L 12/27/2019 8:29 AM CDT [facility] BUN 47(H) 8.4 - 25.7 mg/dL 12/27/2019 8:29 AM CDT [facility] Creatinine 7.69(H) 0.72 - 1.25 mg/dL 12/27/2019 8:29 AM T [facility] Alkaline Phosphatase 62 40 - 150 U/L 12/27/2019 8:29 AM CDT [facility] ALT 8 0 - 61 U/L 12/27/2019 8:29 AM CDT [facility] AST 12 5 - 34 U/L 12/27/2019 8:29 AM CDT [facility] Protein Total 7.7 6.4 - 8.3 gm/dL 12/27/2019 8:29 AM CDT [facility] Albumin 4.4 3.2 - 4.6 gm/dL 12/27/2019 8:29 AM CDT [facility] Bilirubin Total 0.4 0.2 - 1.2 mg/dL 12/27/2019 8:29 AM CDT [facility] eGFR by MDRD 7 mL/min/1.7 3m2 12/27/2019 8:29 AM CDT [facility] eGFR by MDRD 8 mL/min/1.7 3m2 12/27/2019 8:29 AM T [facility] Blood BLOOD SPECIMEN / Unknown Venipuncture / Unknown 12/27/2019 7:34 AM CDT 12/27/2019 7:51 AM CDT Megan Ca DO LAB - CHEMISTRY DELFINO VIDAL [facility] [address] [place] [address] documented in this encounter Visit Diagnoses Not on filedocumented in this encounter Administered Medications Inactive Administered Medications - up to 3 most recent administrations Medication Order MAR Action Action Date Dose Rate Site 0.9% NaCl infusion at 20 mL/hr, Intravenous, PRE-OP CONTINUOUS, Starting on Fri12/27/19 at 0800, Until Fri12/27/19 at 1241, For Dialysis or Chronic Renal Failure patients. Use 500 ml bag and micro drip tubing, Pre-op $ New Bag/Syringe 12/27/2019 8:02 AM CDT 20 mL/hr acetaminophen (TYLENOL) tablet 1,000 mg 1,000 mg, Oral, PRE-OP ONCE, 1 dose, On Fri12/27/19 at 0800, For patients >50 Kg. Not for bariatric or cardiac patients., Pre-op $ Given 12/27/2019 8:02 AM CDT 1,000 mg ceFAZolin (ANCEF) 2,000 mg in 50 ml IVPB 2,000 mg (2 g), at 100 mL/hr, Intravenous, PRE-OP MULTIPLE, Starting on Fri12/27/19 at 0735, Until Fri12/27/19 at 1241, Administer 30 minutes prior to surgical incision., Indication for anti-infective therapy: Surgical prophylaxis, Pre-op celecoxib (CeleBREX) capsule 400 mg 400 mg, Oral, PRE-OP ONCE, 1 dose, On Fri12/27/19 at 0745, Pre-op $ Given 12/27/2019 8:02 AM CDT 400 mg lidocaine PF (XYLOCAINE MPF) 1 % injection 0.5 mL 0.5 mL, Infiltration, PRE-OP ONCE, 1 dose, On Fri12/27/19 at 0800, May be used (0.5 ml locally to anesthetize prior to insertion). For patients not allergic to local anesthetics., Pre-op $ Given 12/27/2019 8:01 AM CDT 0.5 mL metoclopramide (REGLAN) tablet 10 mg 10 mg, Oral, ONCE, 1 dose, On Fri12/27/19 at 0745, Pre-op $ Given 12/27/2019 8:02 AM CDT 10 mg povidone-iodine (BETADINE) 5 % solution Topical, ONCE, 1 dose, On Fri12/27/19 at 0830 $ Given 12/27/2019 8:18 AM CDT pregabalin (LYRICA) capsule 75 mg 75 mg, Oral, PRE-OP ONCE, 1 dose, On Fri12/27/19 at 0745, Pre-op $ Given 12/27/2019 8:02 AM CDT 75 mg scopolamine (TRANSDERM-SCOP) 1 patch 1 patch, Administer over 72 Hours, PRE-OP ONCE, 1 dose, On Fri12/27/19 at 0745, Apply patch behind the ear, do not cut patch, only 1 patch should be worn at a time and remove old patch before applying new patch.This patch may contain metal and is not compatible with MRI. Notify radiology of patch location upon arrival to MRI. Each patch contains 1.5 mg scopolamine base and is formulated to deliver 1 mg of scopolamine over 72 hours. $ Applied 12/27/2019 8:01 AM CDT 1 patch Behind Left Ear scopolamine patch placement confirmation Transdermal, 2 TIMES DAILY, First dose on Fri12/27/19 at 0900, Until Discontinued, Patient has a patch to be confirmed on transition to inpatient and 2 times daily., Pre-op documented in this encounter Active and Recently Administered Medications Times are shown in CDT. Scheduled Medication Order 12/25/2019 12/26/2019 12/27/2019 0.9% NaCl IV Bolus 1,000 mL, at 1,935.48 mL/hr, Administer over 31 Minutes, ONCE, 1 dose, On Fri12/27/19 at 0745 0745 (Due) acetaminophen (TYLENOL) tablet 1,000 mg (COMPLETED) 1,000 mg, Oral, PRE-OP ONCE, 1 dose, On Fri12/27/19 at 0800, For patients >50 Kg. Not for bariatric or cardiac patients., Pre-op 0802 ($ Given - Prov ider: Stephanie Mcfadden RN) ceFAZolin (ANCEF) 2,000 mg in 50 ml IVPB 2,000 mg (2 g), at 100 mL/hr, Intravenous, PRE-OP MULTIPLE, Starting on Fri12/27/19 at 0735, Until Fri12/27/19 at 1241, Administer 30 minutes prior to surgical incision., Indication for anti-infective therapy: Surgical prophylaxis, Pre-op celecoxib (CeleBREX) capsule 400 mg (COMPLETED) 400 mg, Oral, PRE-OP ONCE, 1 dose, On Fri12/27/19 at 0745, Pre-op 0802 ($ Given - Prov ider: Stephanie Mcfadden RN) lidocaine PF (XYLOCAINE MPF) 1 % injection 0.5 mL (COMPLETED) 0.5 mL, Infiltration, PRE-OP ONCE, 1 dose, On Fri12/27/19 at 0800, May be used (0.5 ml locally to anesthetize prior to insertion). For patients not allergic to local anesthetics., Pre-op 08 ($ Given - Prov ider: Stephanie Mcfadden RN) metoclopramide (REGLAN) tablet 10 mg (COMPLETED) 10 mg, Oral, ONCE, 1 dose, On Fri12/27/19 at 0745, Pre-op 08 ($ Given - Prov ider: Stephanie Mcfadden RN) povidone-iodine (BETADINE) 5 % solution (COMPLETED) Topical, ONCE, 1 dose, On Fri12/27/19 at 0830 0818 ($ Given - Prov ider: Stephanie Mcfadden RN) pregabalin (LYRICA) capsule 75 mg (COMPLETED) 75 mg, Oral, PRE-OP ONCE, 1 dose, On Fri12/27/19 at 0745, Pre-op 0802 ($ Given - Prov ider: Stephanie Mcfadden RN) scopolamine (TRANSDERM-SCOP) 1 patch(Linked Group 1) 1 patch, Administer over 72 Hours, PRE-OP ONCE, 1 dose, On Fri12/27/19 at 0745, Apply patch behind the ear, do not cut patch, only 1 patch should be worn at a time and remove old patch before applying new patch.This patch may contain metal and is not compatible with MRI. Notify radiology of patch location upon arrival to MRI. Each patch contains 1.5 mg scopolamine base and is formulated to deliver 1 mg of scopolamine over 72 hours. 08 ($ Applied - Pr ovider: Stephanie Mcfadden RN) scopolamine patch placement confirmation(Linked Group 1) Transdermal, 2 TIMES DAILY, First dose on Fri12/27/19 at 0900, Until Discontinued, Patient has a patch to be confirmed on transition to inpatient and 2 times daily., Pre-op 1052 (Removed - Prov ider: Minna Treadwell RN - Comment: surgery canc) vancomycin (VANCOCIN) 1,000 mg in 0.9% NaCl IV 250 mL IVPB 1,000 mg, at 250 mL/hr, Intravenous, PRE-OP ONCE, 1 dose, On Fri12/27/19 at 0745, Infuse over 60 minutes, initiated within 2 hours prior to surgical incision., Indication for anti-infective therapy: Surgical prophylaxis, Pre-op 0745 (Due) Continuous Medication Order 12/25/2019 12/26/2019 12/27/2019 0.9% NaCl infusion at 20 mL/hr, Intravenous, PRE-OP CONTINUOUS, Starting on Fri12/27/19 at 0800, Until Fri12/27/19 at 1241, For Dialysis or Chronic Renal Failure patients. Use 500 ml bag and micro drip tubing, Pre-op 0802 ($ New Bag/Syri nge - Provider: Stephanie Mcfadden RN) Linked Groups Order Group 1: scopolamine (TRANSDERM-SCOP) 1 patchJump to med 1 patch, Administer over 72 Hours, PRE-OP ONCE, 1 dose, On Fri12/27/19 at 0745, Apply patch behind the ear, do not cut patch, only 1 patch should be worn at a time and remove old patch before applying new patch.This patch may contain metal and is not compatible with MRI. Notify radiology of patch location upon arrival to MRI. Each patch contains 1.5 mg scopolamine base and is formulated to deliver 1 mg of scopolamine over 72 hours. And scopolamine patch placement confirmationJump to med Transdermal, 2 TIMES DAILY, First dose on Fri12/27/19 at 0900, Until Discontinued, Patient has a patch to be confirmed on transition to inpatient and 2 times daily., Pre-op documented in this encounter Care Teams Nut Sorter Relationship Specialty Start Date End Date Kwame Berg MD PCP - General Internal Medicine 01/19/19 [place] [id number] [address] Orthopedic Surgery Orthopedic Surgery 10/13/19 documented as of this encounter
--- OUTSIDE RECORDS SUMMARY | 2024-04-25 21:20 | XMS_ITS | Encounter Summary ---
Author Organization [facility] Address [address] [place] [address] Care Team Providers Care Relationship Associate Name Role Phone Kwame Berg MD Primary Care Provider [phone] Dylon Agudelo MD Unavailable [phone] Reason for Visit * Auth/Cert (Routine) Specialty Diagnoses / Procedures Referred By Contac t Referred To Contact Diagnoses Unilateral primary osteoarthritis, left hip Procedures [place] [address] [address] [address] Referral ID Status Reason Start Date Expiration Date Visits Re quested Visits Authorized [id number] 12/02/2019 12/01/2020 1 1 Encounter Details Date Type Department Care Team (Latest Contact Info) Description 12/27/2019 6:20 AM CDT - 12/27/2019 11:41 AM CDT Hospital Encounter [facility] - Perioperative Surgery [address] [place] [address] [place] [address] [address] Surgery General Discharge Disposition: Home or Self [...] UNIT/ML injectionIndications :ESRD (end stage renal disease) ([facility]) Inject 4,000 Units subcutaneously every 7 days [...] Info) Description 08/23/2024 1:00 PM CDT Appointment [facility] Services [address] [facility], [address] [place] [address] [place] [address] [facility] [place] [address] [place] [phone] [place] [address] [facility] [place] [address] [place] [address] documented as of this encounter Procedures Procedure [...] 12/27/2019 8:54 AM CDT [facility] Blood BLOOD SPECIMEN / Unknown Venipuncture / Unknown 12/27/2019 8:37 AM CDT 12/27/2019 8:39 AM CDT Megan Ca DO LAB - CHEMISTRY DELFINO VIDAL Performing Organization Address [facility] Co de Phone Number [facility] [address] [place] [phone] * GLUCOSE - POINT OF CARE (12/27/2019 7:48 AM CDT) Glucose WB/POC 79 70 - 106 mg/dL 12/27/2019 7:50 AM CDT [facility] Specimen Type Venous 12/27/2019 7:50 AM CDT [facility] Blood BLOOD SPECIMEN / Unknown 12/27/2019 7:48 AM CDT 12/27/2019 7:50 AM CDT Dylon Agudelo MD LAB - POINT OF CARE ORDERABLES Performing Organization Address [facility] Co de Phone Number [facility] [address] [place] [address] * (ABNORMAL) COMPREHENSIVE METABOLIC PANEL (12/27/2019 7:34 AM CDT) Glucose 88 70 - 105 mg/dL 12/27/2019 8:29 AM CDT [facility] Sodium 140 136 - 145 mmol/L 12/27/2019 8:29 AM CDT [facility] Potassium 6.3(HH) 3.5 - 5.1 mmol/L 12/27/2019 8:29 AM CDT [facility] Chloride 98 98 - 107 mmol/L 12/27/2019 8:29 AM CDT [facility] CO2 29 23 - 31 mmol/L 12/27/2019 8:29 AM CDT [facility] Calcium 9.7 8.4 - 10.4 mg/dL 12/27/2019 8:29 AM CDT [facility] Anion Gap 13 8 - 16 mmol/L 12/27/2019 8:29 AM CDT [facility] BUN 47(H) 8.4 - 25.7 mg/dL 12/27/2019 8:29 AM CDT [facility] Creatinine 7.69(H) 0.72 - 1.25 mg/dL 12/27/2019 8:29 AM CDT [facility] Alkaline Phosphatase 62 40 - 150 U/L 12/27/2019 8:29 AM CDT [facility] ALT 8 0 - 61 U/L 12/27/2019 8:29 AM CDT [facility] AST 12 5 - 34 U/L 12/27/2019 8:29 AM CDT [facility] Protein Total 7.7 6.4 - 8.3 gm/dL 12/27/2019 8:29 AM CDT [facility] Albumin 4.4 3.2 - 4.6 gm/dL 12/27/2019 8:29 AM CDT [facility] Bilirubin Total 0.4 0.2 - 1.2 mg/dL 12/27/2019 8:29 AM CDT [facility] eGFR by MDRD 7 mL/min/1.7 3m2 12/27/2019 8:29 AM CDT [facility] eGFR by MDRD 8 mL/min/1.7 3m2 12/27/2019 8:29 AM CDT [facility] Blood BLOOD SPECIMEN / Unknown Venipuncture / Unknown 12/27/2019 7:34 AM CDT 12/27/2019 7:51 AM CDT Megan Ca DO LAB - CHEMISTRY DELFINO VIDAL [facility] [address] [place] [id number] documented in this encounter Visit Diagnoses Diagnosis Primary osteoarthritis of left hip- Primary Primary localized osteoarthrosis, pelvic region and thigh Preop examination Preoperative examination, unspecified documented in [...] patients not allergic to local anesthetics., Pre-op 0801 ($ Given - Prov ider: Stephanie Mcfadden [...] Pre-op 0802 ($ Given - Prov ider: Stpehanie Mcfadden RN) scopolamine (TRANSDERM-SCOP) 1 patch(Linked Group [...] 1 mg of scopolamine over 72 hours. 0801 ($ Applied - Pr ovider: Stephanie Mcfadden [...] Pre-op documented in this encounter Care Teams Relationship Associate Relationship Specialty Start Date End Date Kwame Berg MD PCP - General Internal Medicine 01/19/19 [place] [address] [address] Orthopedic Surgery Orthopedic Surgery 10/13/19 documented as of this encounter
--- OUTSIDE RECORDS SUMMARY | 2024-04-25 21:20 | XMS_ITS | Encounter Summary ---
Author Organization [facility] Address [address] [place] [address] Care Team Providers Care Pharmacy Picking Technician Name Role Phone Kwame Berg MD Primary Care Provider [phone] Dylon Agudelo MD Unavailable [phone] Reason for Visit * Reason Onset Date Comments Med Question 10/15/2019 Encounter Details Date Type Department Care Team (Late st Contact Info) Description 10/15/2019 Telephone [facility] Orthopedics [address] [address] [place] [address] [address] Med Question Social History Tobacco Use Types Packs/Day [...] Telephone Encounter - Dominique Botello - 10/15/2019 9:34 AM CDT Left message for pt to call the office to make a preop appointment with Dr Agudelo. documented in this encounter Plan of Treatment Upcoming Encounters Date Type Department Care Team (Late st Contact Info) Description 08/23/2024 1:00 PM CDT Appointment [facility] Services [address] [facility], [address] [place] [address] [place] [address] [facility] [address] [place] [address] [place] [address] [facility] [address] [place] [address] documented as of this encounter Visit Diagnoses Not on filedocumented in this encounter Care Teams Pharmacy Picking Technician Relationship Specialty Start Date End Date Kwame Berg MD PCP - General Internal Medicine 01/19/19 [place] [address] [facility] [address] [place] [address] Orthopedic Surgery Orthopedic Surgery 10/13/19 documented as of this encounter
--- OUTSIDE RECORDS SUMMARY | 2024-04-25 21:20 | XMS_ITS | Encounter Summary ---
Author Organization [facility] Address [address] [place] [address] Care Team Providers Care Photo Stylist Name Role Phone Kwame Berg MD Primary Care Provider [phone] Dylon Agudelo MD Unavailable [phone] Reason for Visit * Auth/Cert Specialty Diagnoses / Procedures Referred By Vivienne t Referred To Contact Procedures ARTHROPLASTY TOTAL HIP Referral ID Status Reason Start Date Expiration Date Visits Re quested Visits Authorized [id number] 1 1 Encounter Details Date Type Department Care Team (Latest Contact Info) Description 01/12/2020 8:35 AM CDT - 01/20/2020 5:05 PM CDT Hospital Encounter DP 4S SURGICAL [address] [place] [address] [place] [address] [facility] [facility] [address] [place] [address] Surgery Orthopedics Discharge Disposition: Rehab:Inpatient Social History Tobacco Use Types Packs/Day Years [...] Sign Reading Time Taken Comments Blood Pressure 91/43 01/20/2020 3:46 PM CDT Pulse 72 01/20/2020 3:46 PM CDT Temperature 37.4 ??C (99.3 ??F) 01/20/2020 3:46 PM CD T Respiratory Rate 18 01/20/2020 3:46 PM CDT Oxygen Saturation 98% 01/20/2020 3:46 PM CDT Inhaled Oxygen Concentration - - [...] ??? ESRD (end stage renal disease) Evelyn quarles,[facility] 11/2419 ??? ESRD on dialysis ??? High blood pressure ??? Pure hypercholesterolemia ??? Stroke per pt Discharge Diagnoses Active Problems: Primary osteoarthritis of left hip Resolved Problems: * No resolved hospital problems. * Diagnostic Studies See hospital course Treatments See hospital course Procedures See hospital course Consults Dr wyatt Dr yuan Dr baskir Hospital Course Good Progress with PT. Pain [...] on special occasions per facility policy and family assessment worker. Activity as tolerated Rest today, and increase [...] distress or change in patients condition per family assessment worker. Special instructions Apply ice/cold pack to incision [...] Follow up in office in 3 weeks. [phone] Contact Information for Follow-Up Providers Dylon Agudelo MD Specialty: Orthopedic Surgery, Radiology Relationship: Orthopedic Surgery [address] [place] [phone] Follow up in office in 3 weeks. [phone] Follow Up Instructions: Follow up in office in 3 weeks. [phone] Discharge time: less than 30 minutes. Current [...] Das RN - 01/19/2020 1:10 PM CDT [facility]-[phone] documented in this encounter Medications at Time [...] UNIT/ML injectionIndications :ESRD (end stage renal disease) ([facility]) Inject 4,000 Units subcutaneously every [...] will tolerate ____ repetitions of exercises. Description: 10-15 Outcome: Goal Met Goal: STG - Patient [...] intake will meet estimated nutrient needs Description: Odale's Nutrition Goal: Total intake will meet estimated [...] Palacio RN - 01/20/2020 2:37 PM CDT [facility] Rehab has accepted this patient and he is in agreement be transferred to acute rehab on the [facility] to room 204. Accepting physician [address] Dr. Alexandre. May fax discharge ORDERS and a copy of the MAR to [phone]. May call REPORT to [phone] Thank you for the referral! Olivia Palacio, RN, BSN Clinical Liaison [facility] * Laquita Llanos, RD/LDN - 01/20/2020 2:23 PM CDT Nutrition Re-Assessment [...] Weight: 138 lb 6.4 oz (62.8 kg) (01/12/20 0853) Filed Wts: 01/12/20852 Weight: 138 lb 6.4 [...] silver dressing intact Pain controlled VTE Prophylaxis: pascual Slow progress w/ PT Pt has been accepted to [facility] Rehab [place] to discharge, F/U in [...] 2.5 mg po bid. Mana Oliva MD, FAC 01/20/2020 * Neli Das RN - 01/20/2020 12:42 PM CDT Case Management Progress Note Anticipated level of care at discharge: Home Health Care, Acute Rehab Facility Discharge Plan: Patient is S/P left total hip arthroplasty. Plan is to discharge to [facility] rehab. Spoke with Olivia from rehab who is trying to obtain Medicaid auth. Patient should be able to discharge to rehab once auth obtained. Patient will need to transport by ambulance if family unable to provide transportation. Spoke with patient's nurse Isabel who is aware of the above. Basic Needs Assessment (BNA) Score: 10 Complex Needs Assessment (SAMPLE TESTER) Score: 5 Social Support Domain Score: 0 [...] AM CDT Renal Progress Note Ferdinand Rasmussen [id number] Symptoms Patient denies fever, chills, chest pain, [...] results for input(s): MAGMGDL in the last 16548 hours. Recent Labs Component Name 01/12/20 2308 12/10/19 1049 10/13/19 1215 05/27/19 1913 WBC - 4.0* 6.6 4.5 HGB 10.0* 11.2* 11.7* 8.5* HCT 32.1* 35.1* 37.3 28.2* PLTCOUNT - 156 187 215 No results for input(s): COLORUA, CHARACTERUA, SPECGRAVUA, PHUA, PROTEINUA, BLOODUA, LEUKOCYTEUA, NITRITEUA, GLUCOSEUA, KETONEUA, BILIRUBINUA, UROBILINUA, WBCUA, RBCUA, EPITHUA, MUCUSUA, CASTUA, CRYSTALUA, BACTERIAUA, YEASTUA, TRICHUA in the last 22807 hours. .chest X-ray ..us No results for input(s): PT in the last 79930 hours. No results for input(s): INR in the last 75002 hours. No results for input(s): BNP in the last 55208 hours. Recent Labs Component Name 01/12/20 2308 [...] anemia 6. S/p left hip arthroplasty Naveen [facility] [phone] * Abigail Thomas RN - 01/20/2020 10:29 [...] decreased or avoided Outcome: Ongoing * Sabina Crandall, PT - 01/20/2020 9:34 AM CDT Pt is currently arianne at Dialysis. Will follow this PM as time allows. Sabina Crandall, PT, DPT [phone] * Kwame Berg MD - 01/20/2020 9:08 AM CDT Progress Note 01/20/2020 Patient Name: Ferdinand Rasmussen CSN: [id number] Date of : 1945 Admit Date: 01/12/2020 [...] for discharge--should follow up in our office ([phone]) within one week * Mike Flynn OT [...] Report from: Sim Koenig Rn Phone number: [phone] * Domi Michel - 01/20/2020 2:58 AM [...] of injury during this shift. * Tara Velez, KAITLYNN - 01/19/2020 4:28 PM CDT Shift summary: [...] CDT Pharmacy DOAC Education: DOAC education for [facility] for anticoagulation and booklet provided to patient. Information regarding patient's specific agent was highlighted. Discussed all major counseling topics including: Indication for apixaban (ELIQUIS) therapy and importance of taking DOAC as prescribed. Information on DOAC dosing, including strategies for adherence if necessary. Potential for other medications to interact with DOAC therapy and advised not to take start or discontinue any medication or [id number] medication without the advice of their health care support representative. Adverse effects, including signs and symptoms of bleeding were explained as DOAC increases the riskof bleeding. Reviewed plan for discharge supply and discussed potential barriers (financial, insurance, etc) including who to follow-up with if unable to fill DOAC Patient verbalized understanding. Opportunities for questions provided. Calixto Wahl, Cher [facility], ext [phone] * Shahnaz Allen, PT - 01/19/2020 1:40 [...] who is aware of discharge home today. [facility] ordered. Please call [facility] at [phone] for transportation by ambulance, patient has 2 [...] transferring to dialysis. [facility]. Neli Das RN/Floor Worker [facility]-[phone] * Tara Velez RN - 01/19/2020 1:08 PM CDT Attempted to call nephew to discuss discharge. Unable to get a hold of at this time. Tara Velez RN 01/19/2020 1:08 PM * Naveen Blackman MD - 01/19/2020 12:10 PM CDT Renal Progress Note Ferdinand Rasmussen [id number] Symptoms Patient denies fever, chills, chest pain, cough, sob, N/V, abdominal pain Vitals: 01/18/20201401/19/20 0350 01/19/20 0743 01/19/20 1153 BP: 152/65 147/51 150/63 121/51 Pulse: 76 80 86 70 Resp: 16 16 18 18 Temp: 99.1 ??F (37.3 ??C) 99.5 ??F [...] results for input(s): MAGMGDL in the last 24484 hours. Recent Labs Component Name 01/12/20 2308 12/10/19 1049 10/13/19 1215 05/27/19 1913 WBC - 4.0* 6.6 4.5 HGB 10.0* 11.2* 11.7* 8.5* HCT 32.1* 35.1* 37.3 28.2* PLTCOUNT - 156 187 215 No results for input(s): COLORUA, CHARACTERUA, SPECGRAVUA, PHUA, PROTEINUA, BLOODUA, LEUKOCYTEUA, NITRITEUA, GLUCOSEUA, KETONEUA, BILIRUBINUA, UROBILINUA, WBCUA, RBCUA, EPITHUA, MUCUSUA, CASTUA, CRYSTALUA, BACTERIAUA, YEASTUA, TRICHUA in the last 85659 hours. .chest X-ray ..us No results for input(s): PT in the last 08200 hours. No results for input(s): INR in the last 91912 hours. No results for input(s): BNP in the last 24020 hours. Recent Labs Component Name 01/12/20 2308 [...] S/p left hip arthroplasty [facility] [phone] * Pavel Pimentel RDCS - 01/19/2020 11:34 [...] intake will meet estimated nutrient needs Description: Jacques Nutrition Goal: Total intake will meet estimated nutrient needs Nutrition GoalTimeframe: Throughout stay Outcome: Ongoing * Kawme Berg MD - 01/19/2020 8:59 AM CDT Progress Note 01/19/2020 Patient Name: Ferdinand Rasmussen CSN: [id number] Date of : 1945 Admit Date: 01/12/2020 [...] for discharge--should follow up in our office ([phone]) within one week * Mike Flynn, OT - 01/19/2020 8:52 AM CDT Occupational [...] Upper Extremity's Support ADL Tasks: Feeding: Complete Turner Oral Facial Hygiene: Set-up(seated) Bathing: Moderate Assistance(anticipated) [...] Tele: SR Vital signs Vitals: 01/18/20 1529 01/18/20201401/19/20 0350 01/19/20 0743 BP: 117/70 152/65 147/51 [...] to walk in the lim this session. V.[employer] director stay inside the walker and take larger [...] summary. Krista Rojas PT, DPT, CCS x [phone] * Sol Garay RN - 01/19/2020 2:24 [...] home tomorrow if medically stable * Shahnaz Allen PT - 01/18/2020 2:22 PM CDT Physical [...] alarm activated. Hip abd wedge in place. Sonya CALDERÓN, notified of patient's performance/location end of session. [...] 12:03 PM CDT Renal Progress Note Ferdinand Rasmussen [id number] Symptoms Patient denies fever, chills, chest pain, [...] results for input(s): MAGMGDL in the last 60363 hours. Recent Labs Component Name 01/12/20230712/10/19 1049 10/13/19 1215 05/27/19 1913 WBC - 4.0* 6.6 4.5 HGB 10.0* 11.2* 11.7* 8.5* HCT 32.1* 35.1* 37.3 28.2* PLTCOUNT - 156 187 215 No results for input(s): COLORUA, CHARACTERUA, SPECGRAVUA, PHUA, PROTEINUA, BLOODUA, LEUKOCYTEUA, NITRITEUA, GLUCOSEUA, KETONEUA, BILIRUBINUA, UROBILINUA, WBCUA, RBCUA, EPITHUA, MUCUSUA, CASTUA, CRYSTALUA, BACTERIAUA, YEASTUA, TRICHUA in the last 92327 hours. .chest X-ray ..us No results for input(s): PT in the last 18665 hours. No results for input(s): INR in the last 41317 hours. No results for input(s): BNP in the last 07892 hours. Recent Labs Component Name 01/12/20230712/10/19 1049 [...] S/p left hip arthroplasty [facility] [phone] * Sonya Osborne RN - 01/18/2020 12:01 [...] SCDs and stool softeners. Medications given per MAR. Bed in the low locked position. Bed [...] Note 01/18/2020 Patient Name: Ferdinand Rasmussen CSN: [id number] Date of : 1945 Admit Date: 01/12/2020 [...] Eliquis 2.5 mg bid. Mana Oliva MD, FACC 01/18/2020 * Mike Flynn OT - 01/18/2020 [...] dialysis this morning.Tele monitor in place * Krista Rojas, PT - 01/18/2020 7:11 AM CDT [...] with dialysis:no Report from:dianna Fulton RN Phone number:[phone] * Naveen Blackman MD - 01/17/2020 11:17 PM CDT Renal Progress Note Ferdinand Rasmussen [id number] Symptoms Patient denies fever, chills, chest pain, [...] results for input(s): MAGMGDL in the last 52030 hours. Recent Labs Component Name 01/12/20 2308 12/10/19 1049 10/13/19 1215 05/27/19 1913 WBC - 4.0* 6.6 4.5 HGB 10.0* 11.2* 11.7* 8.5* HCT 32.1* 35.1* 37.3 28.2* PLTCOUNT - 156 187 215 No results for input(s): COLORUA, CHARACTERUA, SPECGRAVUA, PHUA, PROTEINUA, BLOODUA, LEUKOCYTEUA, NITRITEUA, GLUCOSEUA, KETONEUA, BILIRUBINUA, UROBILINUA, WBCUA, RBCUA, EPITHUA, MUCUSUA, CASTUA, CRYSTALUA, BACTERIAUA, YEASTUA, TRICHUA in the last 36782 hours. .chest X-ray ..us No results for input(s): PT in the last 92692 hours. No results for input(s): INR in the last 21956 hours. No results for input(s): BNP in the last 74628 hours. Recent Labs Component Name 01/12/20230712/10/19 1049 [...] S/p left hip arthroplasty [facility] [phone] * Roxana Gates RN - 01/17/2020 5:47 PM CDT Alert x4, flat affect. Strike through drainage on left hip silver dressing. A fib on telemetry. IV capped. HD tomorrow. Tunneled cath c/d/i. SBA and was up to chair this afternoon. Wagram 5 for pain. * Dolores Alberts RN - 01/17/2020 3:00 PM CDT Ortho POD#5 Awake, alert Afebrile Cardiology consult today for a fib Incisional area- silver dressing intact Pain controlled VTE Prophylaxis: aspirin 81mg BID Progressing w/ PT Plan d/c home with [facility] once medically stable * Neli Das RN - 01/17/2020 1:50 PM CDT Case Management Progress Note Anticipated level of care at discharge: Home Health Care Discharge Plan: Patient is S/P left total hip arthroplasty. Plan is to discharge home with [facility]. Therapy recommends acute rehab but patient is refusing, states he will go home and will be fine. Patient lives with his nephew in a second floor apartment with 2 flights of steps to enter. Patient was independent prior to admit. [facility] will provide transportation at discharge. Has a 2 Wheeled walker for home use. Agreeable to [facility] at discharge. Will continue to follow for dc needs. Patient declined offer to contact family/caregiver to discuss discharge plans. Please call [facility] at [phone] for transportation Basic Needs Assessment (BNA) Score: 10 Complex Needs Assessment (SAMPLE TESTER) Score: 5 Social Support Domain Score: 0 [...] DPT, CCS x [phone] * Laquita Llanos, ALTAGRACIA/LALO - 01/17/2020 11:25 AM CDT Nutrition Re-Assessment [...] intake poor. Agree with current diet order, [employer]ER evaluation as indicated by ability to chew/swallow. [...] Supplements: Recommendations: Continue with renal diet order ([employer] FINISHER evaluation if indicated by chewing/swallowing function) Nepro [...] Upper Extremity's Support ADL Tasks: Feeding: Complete Turner(anticipated) Oral Facial Hygiene: Stand By Assist;Requires Verbal [...] processing, sequencing, safety awareness and memory. Pt. Samantha improved strength and balance this date. Pt. [...] to return home, however will not have 18/11 assist and supervision available, reporting his nephew works during the daytime. If this is the last Occupational Therapy visit, this serves as the discharge summary. Mike Flynn OT x [phone] * Kwame Berg MD - 01/17/2020 8:29 AM CDT Progress Note 01/17/2020 Patient Name: Ferdinand Rasmussen CSN: [id number] Date of : 1945 Admit Date: 01/12/2020 [...] 9:30 PM CDT Renal Progress Note Odale Stephen [id number] Symptoms Patient denies fever, chills, chest pain, [...] results for input(s): MAGMGDL in the last 82920 hours. Recent Labs Component Name 01/12/20 2308 12/10/19 1049 10/13/19 1215 05/27/19 1913 WBC - 4.0* 6.6 4.5 HGB 10.0* 11.2* 11.7* 8.5* HCT 32.1* 35.1* 37.3 28.2* PLTCOUNT - 156 187 215 No results for input(s): COLORUA, CHARACTERUA, SPECGRAVUA, PHUA, PROTEINUA, BLOODUA, LEUKOCYTEUA, NITRITEUA, GLUCOSEUA, KETONEUA, BILIRUBINUA, UROBILINUA, WBCUA, RBCUA, EPITHUA, MUCUSUA, CASTUA, CRYSTALUA, BACTERIAUA, YEASTUA, TRICHUA in the last 09732 hours. .chest X-ray ..us No results for input(s): PT in the last 10757 hours. No results for input(s): INR in the last 32662 hours. No results for input(s): BNP in the last 08768 hours. Recent Labs Component Name 01/12/20 2308 [...] S/p left hip arthroplasty [facility] [phone] * Tonie Muhammad, RN - 01/16/2020 3:38 PM CDT Shift [...] light and phone within reach. * Loree Griffin, PT - 01/16/2020 3:36 PM CDT Physical [...] Note 01/16/2020 Patient Name: Ferdinand Rasmussen CSN: [id number] Date of : 1945 Admit Date: 01/12/2020 [...] soft, doctor aware of. Wound on Sacral GIL, barrier cream applied. Turn q2h. Silver dressing on left hip, ice pack applied. Bedin lowest position, call light and phone within reach. * Naveen Blackman MD - 01/15/2020 2:50 PM CDT Renal Progress Note Ferdinand Rasmussen [id number] Symptoms Patient denies fever, chills, chest pain, cough, sob, N/V, abdominal pain Vitals: 01/15/20 1255 01/15/20 1308 01/15/20 1315 01/15/20 1330 BP: 106/43 111/50 124/52 123/53 Pulse: 71 74 75 73 Resp: 16 16 16 16 Temp: 99 ??F (37.2 [...] results for input(s): MAGMGDL in the last 71289 hours. Recent Labs Component Name 01/12/20230712/10/19 1049 10/13/19 1215 05/27/19 1913 WBC - 4.0* 6.6 4.5 HGB 10.0* 11.2* 11.7* 8.5* HCT 32.1* 35.1* 37.3 28.2* PLTCOUNT - 156 187 215 No results for input(s): COLORUA, CHARACTERUA, SPECGRAVUA, PHUA, PROTEINUA, BLOODUA, LEUKOCYTEUA, NITRITEUA, GLUCOSEUA, KETONEUA, BILIRUBINUA, UROBILINUA, WBCUA, RBCUA, EPITHUA, MUCUSUA, CASTUA, CRYSTALUA, BACTERIAUA, YEASTUA, TRICHUA in the last 57570 hours. .chest X-ray ..us No results for input(s): PT in the last 89912 hours. No results for input(s): INR in the last 11602 hours. No results for input(s): BNP in the last 66566 hours. Recent Labs Component Name 01/12/20230712/10/19 1049 [...] S/p left hip arthroplasty [facility] [phone] * Abigail Thomas RN - 01/15/2020 11:52 [...] Note 01/15/2020 Patient Name: Ferdinand Rasmussen CSN: [id number] Date of : 1945 Admit Date: 01/12/2020 [...] risk are minimized Outcome: Ongoing Flowsheets (Taken 01/14/2020924) Cassidy [place] Fall Risk Total: 12 [place] Fall Risk Precaution Interventions: Call light/belongings in [...] arthroplasty. Plan is to discharge home with [facility]. Therapy recommends acute rehab but patient is refusing, states he will go home and will be fine. Patient lives with his nephew in a second floor apartment with 2 flights of steps toenter. Patient was independent prior to admit. [facility] will provide transportation at discharge. Has a 2 Wheeled walker for home use. Agreeable to [facility] at discharge. Will continue to follow for dc needs. Patient declined offer to contact family/caregiver to discuss discharge plans. Please call [facility] at [phone] for transportation Basic Needs Assessment (BNA) Score: 10 Complex Needs Assessment (SAMPLE TESTER) Score: 5 Social Support Domain Score: 0 [...] Continue BID PT while hospitalized. Shahnaz Allen, SARAH 01/14/2020 * Naveen Blackman MD - 01/14/2020 12:18 PM CDT Renal Progress Note Ferdinand Rasmussen [id number] Symptoms Patient denies fever, chills, chest pain, [...] results for input(s): MAGMGDL in the last 40880 hours. Recent Labs Component Name 01/12/20230712/10/19 1049 10/13/19 1215 05/27/19 1913 WBC - 4.0* 6.6 4.5 HGB 10.0* 11.2* 11.7* 8.5* HCT 32.1* 35.1* 37.3 28.2* PLTCOUNT - 156 187 215 No results for input(s): COLORUA, CHARACTERUA, SPECGRAVUA, PHUA, PROTEINUA, BLOODUA, LEUKOCYTEUA, NITRITEUA, GLUCOSEUA, KETONEUA, BILIRUBINUA, UROBILINUA, WBCUA, RBCUA, EPITHUA, MUCUSUA, CASTUA, CRYSTALUA, BACTERIAUA, YEASTUA, TRICHUA in the last 99437 hours. .chest X-ray ..us No results for input(s): PT in the last 24336 hours. No results for input(s): INR in the last 21492 hours. No results for input(s): BNP in the last 98779 hours. Recent Labs Component Name 01/12/20230712/10/19 1049 [...] S/p left hip arthroplasty [facility] [phone] * Alejandro Shahnaz Tyshawn, PT - 01/14/2020 11:03 AM CDT Physical [...] AM CDT Orth[facility] POD # 2 from [facility] Awake, Alert Afebrile Up in chair Dialysis patient- normal schedule- //Sat- Dr Blackman following patient VTE Prophylaxis: ASA [...] lady friend whom help himdaily. Will need rn case mgr to help with discharge planning * Leila [...] and intact pre and post visit. RN, Pat, notified of patient's performance/location end of session. [...] this serves as the discharge summary. Leila Martinez x [phone] * Katya Jimenez PharmD - 01/14/2020 9:24 AM CDT [facility] Pharmacy Services [facility] Renal Dose Adjustment Policy Ferdinand Rasmussen [...] Note 01/14/2020 Patient Name: Ferdinand Rasmussen CSN: [id number] Date of : 1945 Admit Date: 01/12/2020 [...] 3:34 PM CDT Renal Progress Note Ferdinand Long [id number] Symptoms Patient denies fever, chills, chest pain, cough, sob, N/V, abdominal pain Vitals: 01/13/20 1305 01/13/20 1625 01/13/20 1945 01/14/20 0012 BP: 139/51 119/79 134/61 101/57 Pulse: 107 90 49 72 Resp: Temp: 98.1 ??F (36.7 ??C) 98 ??F [...] results for input(s): MAGMGDL in the last 87084 hours. Recent Labs Component Name 01/12/20230712/10/19 1049 10/13/19 1215 05/27/19 1913 WBC - 4.0* 6.6 4.5 HGB 10.0* 11.2* 11.7* 8.5* HCT 32.1* 35.1* 37.3 28.2* PLTCOUNT - 156 187 215 No results for input(s): COLORUA, CHARACTERUA, SPECGRAVUA, PHUA, PROTEINUA, BLOODUA, LEUKOCYTEUA, NITRITEUA, GLUCOSEUA, KETONEUA, BILIRUBINUA, UROBILINUA, WBCUA, RBCUA, EPITHUA, MUCUSUA, CASTUA, CRYSTALUA, BACTERIAUA, YEASTUA, TRICHUA in the last 86057 hours. .chest X-ray ..us No results for input(s): PT in the last 56821 hours. No results for input(s): INR in the last 34363 hours. No results for input(s): BNP in the last 90716 hours. Recent Labs Component Name 01/12/20230712/10/19 1049 [...] S/p left hip arthroplasty [facility] [phone] * Laquita Llanos RD/LALO - 01/13/2020 1:52 [...] Labs: Reviewed Recent Labs Component Name 01/13/20 02401/12/20 2308 01/12/20 0856 SODIUM 137 140 139 [...] WBAT Possible rehab at discharge * Donaldo Gonzalez, KAITLYNN - 01/13/2020 12:46 PM CDT Pt is [...] for discharge needs. Rachael Burch RN, BSN Floor Worker [facility] [place] [phone] * Kwame Berg MD - 01/13/2020 9:23 AM CDT Progress Note 01/13/2020 Patient Name: Ferdinand Rasmussen CSN: [id number] Date of : 1945 Admit Date: 01/12/2020 [...] the discharge summary. Mike Flynn OT x [phone] * Donaldo Gonzalez RN - 01/13/2020 8:44 [...] Report from: Jose Osborne RN Phone number: [phone] * Sonya Osborne RN - 01/13/2020 7:54 [...] precautions today. Will continue to monitor. * Sonya Osborne RN - 01/13/2020 7:54 [...] Krista Rojas, PT x [phone] * Gabriela Rivsa RN - 01/13/2020 5:04 AM CDT Odale is alert and oriented x 4. Tolerating diet. Pain controlled with Wagram 10 and ice. Dressing clean, dry, intact, [...] 7:46 AM CDT ORTHOPAEDIC CLINIC NOTE ?? NAME:?Ferdinand Rasmussen DATE OF SERVICE: DATE:??1945 PCP:??Kwame Berg MD [...] his anemia before surgery. His hgb on 6/17 was 11.7. He is experiencing debilitating daily [...] IP CONSULT TO PHYSICAL MED AND REHAB [facility] has initiated an evaluation per consult order. Pt will need acceptance from our clinical medical assistant. Will discuss with our physician and follow up with CM. Thank you for the referral! Olivia Palacio RN, BSN Clinical Liaison [facility] * Darwin Ridley MD - 01/17/2020 1:24 [...] Readmission Risk Score: If there is no SAMPLE TESTER Total Score indicated, this patient has yet to be assessed for Readmission Risk or the BNA Score was < 10. If the patient has been assessed, the score is: SAMPLE TESTER TOTAL SCORE: 5 Past Medical History: Diagnosis Date ??? Cancer 2000 pt unsure of type of cancer ??? Chronic kidney disease ??? ESRD (end stage renal disease) Evelyn mcmahon ,,[facility] 11/2419 ??? ESRD on dialysis [...] to follow with you. Darwin Ridley MD, [facility], 01/17/2020 1:24 PM * Naveen Blackman MD - 01/12/2020 9:00 PM CDT Renal Consult Ferdinand Rasmussen [id number] 1945 [id number] No Known Allergies Reason for Consultation: END Stage Renal Disease Requested by: Kwame Berg MD HPI : The patient is a 74 y.o. year old male with a past medical history of ESRD on dialysis three times a week, TTS at [facility], HLD, HTN, Obesity, CHF/volume overload, OA [...] disease ??? ESR[place] (end stage renal disease) [facility] 11/2419 ??? ESRD on dialysis [...] file Gets together: Not on file Attends gnosticist service: Not on file Active member of [...] at 01/13/2020 0202 Last data filed at 01/12/20202034 Gross per 24 hour Intake 1300 ml [...] GLUCOSEUA, KETONEUA, BILIRUBINUA, UROBILINUA in the last [id number] hours. Recent Labs Component Name 01/12/20 2308 12/10/19 1049 10/13/19 1215 05/27/19 1913 05/26/19 0803 [...] - 0 1 Recent Labs Component Name 01/12/20 2308 01/12/20 0856 12/27/19 0837 12/27/19 0734 12/22/19 0948 [...] direct superior approach SURGEON: Dylon Agudelo MD CUSTOMER SERVICE ADMINISTRATOR(S): Channel Marketing Specialist: Christina Stiles RN Physician Take Down Inspector: Abigail Madrid PA Registered Nurse Maternal Child Nurse: Geronimo Wright RN Scrub Person: Ana Silva RN The [...] Implant Name Type Inv. Item Serial No. Hand Buffing Wheel Former Lot No. LRB No. Used Action G7 AETABULAR SHELL 3 HOLE POROUS PLASMA, CEMENTLESS [employer] [id number] Left 1 Implanted BONE SCREW SELF TAPPING 6.5 DIAMETER/ 30MM LENGTH [employer] [id number] Left 1 Implanted BONE SCREW SELF TAPPING 6.5MM DIAMETER/ 20MM LENGTH [employer] [id number] Left 1 Implanted G7 VIVACIT E VITAMINE HIGHLY CROSSLINKED POLYETHYLENE LINER [employer] [id number] Left 1 Implanted TAPERLOCK COMPLETE MICRO PRIMARY FEMORAL STEM 6X97.5 MM [employer] [id number] Left 1 Implanted CERAMIC HEAD [employer] [id number] Left 1 Implanted Slv Centering -3Mm Ofst Tpr Hip Blx D Ty Slv Centering -3Mm Ofst Tpr Hip Blx D Ty [employer] [id number] Left 1 Implanted documented in this encounter Plan of Treatment Upcoming Encounters Date Type Department Care Team (Late st Contact Info) Description 08/23/2024 1:00 PM CDT Appointment [facility] [id number] [place] [address], [address] [place] [address] [place] [address] [facility] [address] [place] [phone] [place] [address] [facility] [address] [place] [phone] (work) documented as of this encounter Procedures Procedure [...] OF CARE Routine 01/12/2020 12:30 PM CDT RI TOTAL HIP REPLACEMENT 01/12/2020 9:48 AM CDT [...] - 105 mg/dL 01/20/2020 6:10 AM CDT [facility] Sodium 136 136 - 145 mmol/L 01/20/2020 6:10 AM CDT [facility] Potassium 4.3 3.5 - 5.1 mmol/L 01/20/2020 6:10 AM CDT [facility] Chloride 98 98 - 107 mmol/L 01/20/2020 6:10 AM CDT [facility] CO2 26 23 - 31 mmol/L 01/20/2020 6:10 AM CDT [facility] Calcium 8.8 8.4 - 10.4 mg/dL 01/20/2020 6:10 AM CDT [facility] Anion Gap 12 8 - 16 mmol/L 01/20/2020 6:10 AM CDT [facility] BUN 57(H) 8.4 - 25.7 mg/dL 01/20/2020 6:10 AM CDT [facility] Creatinine 6.54(H) 0.72 - 1.25 mg/dL 01/20/2020 6:10 AM CDT [facility] Albumin 3.4 3.2 - 4.6 gm/dL 01/20/2020 6:10 AM CDT [facility] Phosphorus 3.4 2.3 - 4.7 mg/dL 01/20/2020 6:10 AM T [facility] eGFR by MDRD 8 mL/min/1.7 3m2 01/20/2020 6:10 AM T [facility] eGFR by MDRD 10 mL/min/1.7 3m2 01/20/2020 6:10 AM T [facility] Blood BLOOD SPECIMEN / Unknown Venipuncture / Unknown 01/20/2020 4:45 AM CDT 01/20/2020 5:36 AM CDT Naveen Blackman MD LAB - CHEMISTRY DELFINO VIDAL [facility] Organization Address City/State/ZIP Co de Phone Number [facility] [address] [place] [address] * (ABNORMAL) RENAL FUNCTION PANEL (01/19/2020 3:50 AM CDT) [facility] Glucose 110(H) 70 - 105 mg/dL 01/19/2020 5:39 AM CDT [facility] Sodium 135(L) 136 - 145 mmol/L 01/19/2020 5:39 AM CDT [facility] Potassium 4.2 3.5 - 5.1 mmol/L 01/19/2020 5:39 AM CDT [facility] Chloride 94(L) 98 - 107 mmol/L 01/19/2020 5:39 AM CDT [facility] CO2 32(H) 23 - 31 mmol/L 01/19/2020 5:39 AM CDT [facility] Calcium 9.0 8.4 - 10.4 mg/dL 01/19/2020 5:39 AM CDT [facility] Anion Gap 9 8 - 16 mmol/L 01/19/2020 5:39 AM CDT [facility] BUN 33(H) 8.4 - 25.7 mg/dL 01/19/2020 5:39 AM CDT [facility] Creatinine 4.60(H) 0.72 - 1.25 mg/dL 01/19/2020 5:39 AM CDT [facility] Albumin 3.5 3.2 - 4.6 gm/dL 01/19/2020 5:39 AM CDT [facility] Phosphorus 2.8 2.3 - 4.7 mg/dL 01/19/2020 5:39 AM CDT [facility] eGFR by MDRD 13 mL/min/1.7 3m2 01/19/2020 5:39 AM CDT [facility] eGFR by MDRD 15 mL/min/1.7 3m2 01/19/2020 5:39 AM CDT [facility] Blood BLOOD SPECIMEN / Unknown Venipuncture / Unknown 01/19/2020 3:50 AM CDT 01/19/2020 5:13 AM CDT Naveen Blackman MD LAB - CHEMISTRY DELFINO VIDAL [facility] Organization Address City/State/[facility] Co de Phone Number [facility] [address] [place] [address] * (ABNORMAL) RENAL FUNCTION PANEL (01/18/2020 3:07 AM CDT) Glucose 121(H) 70 - 105 mg/dL 01/18/2020 4:07 AM CDT [facility] Sodium 140 136 - 145 mmol/L 01/18/2020 4:07 AM CDT [facility] Potassium 4.0 3.5 - 5.1 mmol/L 01/18/2020 4:07 AM CDT [facility] Chloride 101 98 - 107 mmol/L 01/18/2020 4:07 AM CDT [facility] CO2 28 23 - 31 mmol/L 01/18/2020 4:07 AM CDT [facility] Calcium 8.7 8.4 - 10.4 mg/dL 01/18/2020 4:07 AM CDT [facility] Anion Gap 11 8 - 16 mmol/L 01/18/2020 4:07 AM CDT [facility] BUN 58(H) 8.4 - 25.7 mg/dL 01/18/2020 4:07 AM CDT [facility] Creatinine 7.47(H) 0.72 - 1.25 mg/dL 01/18/2020 4:07 AM CDT [facility] Albumin 3.2 3.2 - 4.6 gm/dL 01/18/2020 4:07 AM CDT [facility] Phosphorus 3.9 2.3 - 4.7 mg/dL 01/18/2020 4:07 AM CDT [facility] eGFR by MDRD 7 mL/min/1.7 3m2 01/18/2020 4:07 AM CDT [facility] eGFR by MDRD 9 mL/min/1.7 3m2 01/18/2020 4:07 AM CDT [facility] Blood BLOOD SPECIMEN / Unknown Venipuncture / Unknown 01/18/2020 3:07 AM CDT 01/18/2020 3:41 AM CDT Naveen Blackman MD LAB - CHEMISTRY DELFINO VIDAL Performing Organization Address [facility] Co de Phone Number [facility] [address] [place], [place] [id number] * TSH REFLEX FREE T4 (01/18/2020 3:07 AM CDT) TSH 0.392 0.350 - 4.940 uIU/mL 01/18/2020 4:29 AM CDT [facility] Blood BLOOD SPECIMEN / Unknown Venipuncture / Unknown 01/18/2020 3:07 AM CDT 01/18/2020 3:41 AM CDT Darwin Ridley MD LAB - CHEMISTRY DELFINO VIDAL Performing Organization Address City/[facility]/ZIP Co de Phone Number [facility] [address] [place] [address] * ECHOCARDIOGRAM 2D WITH DOPPLER (01/17/2020 8:30 AM CDT) 01/17/2020 8:30 AM CDT Narrative Procedure Note Lorenzo Quintero MD - 01/19/2020 . [place] [address] [facility] [place] [address] Echocardiography Examination Transthoracic Name: FERDINAND RASMUSSEN MPI#: MR#: [id number] Admission Number: [id number] Study Date: 01/19/2020 Study Time: 09:11 AM Date Of : 1945 Age: 74 years Height: 62 in. (157.5 cm) Weight: 138.01 lbs. (62.60 kg) BSA: 1.63 m2 Gender: Male Blood Pressure: 147 mmHg / 51 mmHg Heart Rate: 80 bpm Exam Details Procedure Ordered: ECHOCARDIOGRAM 2D W/DOPPLER Procedure Components: Complete 2D, M-mode, complete spectral Doppler, color Doppler Procedure Status: Routine study Facility Location: [facility] Indication: Atrial Fibrillation Procedure Research Hydraulic Engineer: Pavel Pimentel RDCS Ordering Provider: Kwame Berg MD Reading Physician: Lorenzo Quintero MD Ordering Provider: Mana Oliva MD Reading Group: [facility] Conclusions Left Ventricle: ? ? Left [...] 300 ms Function Mitral Valve MV Dec Sebastian 1.84 m/s?? Pulmonic Valve PV PGmax 9 mmHg Pulmonic Valve PV Vmax, Caliper 1.51 m/s (0.6m/s - 0.9m/s) (No Signature Object) Patient: FERDINAND RASMUSSEN Study Date: 01/19/2020 09:11 AM Page 3 of 3 Kwame Berg MD ECHO ORDERABLES [facility] * (ABNORMAL) RENAL FUNCTION PANEL (01/17/2020 4:31 AM CDT) Glucose 116(H) 70 - 105 mg/dL 01/17/2020 5:34 AM CDT [facility] Sodium 140 136 - 145 mmol/L 01/17/2020 5:34 AM CDT [facility] Potassium 3.9 3.5 - 5.1 mmol/L 01/17/2020 5:34 AM CDT [facility] Chloride 99 98 - 107 mmol/L 01/17/2020 5:34 AM CDT [facility] CO2 30 23 - 31 mmol/L 01/17/2020 5:34 AM CDT [facility] Calcium 8.4 8.4 - 10.4 mg/dL 01/17/2020 5:34 AM CDT [facility] Anion Gap 11 8 - 16 mmol/L 01/17/2020 5:34 AM CDT [facility] BUN 44(H) 8.4 - 25.7 mg/dL 01/17/2020 5:34 AM CDT [facility] Creatinine 6.02(H) 0.72 - 1.25 mg/dL 01/17/2020 5:34 AM CDT [facility] Albumin 3.1(L) 3.2 - 4.6 gm/dL 01/17/2020 5:34 AM CDT [facility] Phosphorus 3.6 2.3 - 4.7 mg/dL 01/17/2020 5:34 AM CDT [facility] eGFR by MDRD 9 mL/min/1.7 3m2 01/17/2020 5:34 AM CDT [facility] eGFR by MDRD 11 mL/min/1.7 3m2 01/17/2020 5:34 AM CDT [facility] Blood BLOOD SPECIMEN / Unknown Venipuncture / Unknown 01/17/2020 4:31 AM CDT 01/17/2020 4:56 AM CDT Naveen Blackman MD LAB - CHEMISTRY DELFINO VIDAL [facility] Organization Address City/State/[facility] Co de Phone Number [facility] [address] [place] [address] * (ABNORMAL) RENAL FUNCTION PANEL (01/16/2020 4:21 AM CDT) Pathologist [facility] Glucose 110(H) 70 - 105 mg/dL 01/16/2020 4:47 AM CDT [facility] Sodium 137 136 - 145 mmol/L 01/16/2020 4:47 AM CDT [facility] Potassium 3.7 3.5 - 5.1 mmol/L 01/16/2020 4:47 AM CDT [facility] Chloride 99 98 - 107 mmol/L 01/16/2020 4:47 AM CDT [facility] CO2 31 23 - 31 mmol/L 01/16/2020 4:47 AM CDT [facility] Calcium 8.4 8.4 - 10.4 mg/dL 01/16/2020 4:47 AM CDT [facility] Anion Gap 7(L) 8 - 16 mmol/L 01/16/2020 4:47 AM CDT [facility] BUN 23 8.4 - 25.7 mg/dL 01/16/2020 4:47 AM CDT [facility] Creatinine 3.89(H) 0.72 - 1.25 mg/dL 01/16/2020 4:47 AM CDT [facility] Albumin 3.1(L) 3.2 - 4.6 gm/dL 01/16/2020 4:47 AM CDT [facility] Phosphorus 2.9 2.3 - 4.7 mg/dL 01/16/2020 4:47 AM CDT [facility] eGFR by MDRD 15 mL/min/1.7 3m2 01/16/2020 4:47 AM CDT [facility] eGFR by MDRD 18 mL/min/1.7 3m2 01/16/2020 4:47 AM CDT [facility] Blood BLOOD SPECIMEN / Unknown Venipuncture / Unknown 01/16/2020 4:21 AM CDT 01/16/2020 4:24 AM CDT Naveen Blackman MD LAB - CHEMISTRY DELFINO VIDAL Performing Organization Address [facility] Co de Phone Number [facility] [address] [place] [address] * GLUCOSE - POINT OF CARE (01/15/2020 11:34 AM CDT) Glucose WB/POC 99 70 - 106 mg/dL 01/16/2020 7:24 AM CDT [facility] Specimen Type Arterial/C apillary 01/16/2020 7:24 AM CDT [facility] Blood BLOOD SPECIMEN / Unknown 01/15/2020 11:34 AM CDT 01/16/2020 7:24 AM CDT Dylon Agudelo MD LAB - POINT OF CARE ORDERABLES Performing Organization Address [facility] Co de Phone Number [facility] [address] [place] [address] * GLUCOSE - POINT OF CARE (01/15/2020 7:34 AM CDT) Glucose WB/POC 104 70 - 106 mg/dL 01/16/2020 7:24 AM CDT [facility] Specimen Type Arterial/C apillary 01/16/2020 7:24 AM CDT [facility] Blood BLOOD SPECIMEN / Unknown 01/15/2020 7:34 AM CDT 01/16/2020 7:24 AM CDT Dylon Agudelo MD LAB - POINT OF CARE ORDERABLES [facility] [address] [place] [phone] * (ABNORMAL) RENAL FUNCTION PANEL (01/15/2020 4:06 AM CDT) Glucose 112(H) 70 - 105 mg/dL 01/15/2020 4:37 AM CDT [facility] Sodium 133(L) 136 - 145 mmol/L 01/15/2020 4:37 AM CDT [facility] Potassium 3.9 3.5 - 5.1 mmol/L 01/15/2020 4:37 AM CDT [facility] Chloride 93(L) 98 - 107 mmol/L 01/15/2020 4:37 AM CDT [facility] CO2 25 23 - 31 mmol/L 01/15/2020 4:37 AM CDT [facility] Calcium 8.3(L) 8.4 - 10.4 mg/dL 01/15/2020 4:37 AM CDT [facility] Anion Gap 15 8 - 16 mmol/L 01/15/2020 4:37 AM CDT [facility] BUN 46(H) 8.4 - 25.7 mg/dL 01/15/2020 4:37 AM CDT [facility] Creatinine 7.38(H) 0.72 - 1.25 mg/dL 01/15/2020 4:37 AM CDT [facility] Albumin 3.1(L) 3.2 - 4.6 gm/dL 01/15/2020 4:37 AM CDT [facility] Phosphorus 6.0(H) 2.3 - 4.7 mg/dL 01/15/2020 4:37 AM CDT [facility] eGFR by MDRD 7 mL/min/1.7 3m2 01/15/2020 4:37 AM CDT [facility] eGFR by MDRD 9 mL/min/1.7 3m2 01/15/2020 4:37 AM CDT [facility] Blood BLOOD SPECIMEN / Unknown Venipuncture / Unknown 01/15/2020 4:06 AM CDT 01/15/2020 4:10 AM CDT Naeven Blackman MD LAB - CHEMISTRY DELFINO VIDAL Performing Organization Address [facility] de Phone Number [facility] [address] [place] [phone] * (ABNORMAL) GLUCOSE - POINT OF CARE (01/14/2020 7:48 PM CDT) Glucose WB/POC 157(H) 70 - 106 mg/dL 01/16/2020 7:24 AM CDT [facility] Specimen Type Arterial/C apillary 01/16/2020 7:24 AM CDT [facility] Blood BLOOD SPECIMEN / Unknown 01/14/2020 7:48 PM CDT 01/16/2020 7:24 AM CDT Dylon Agudelo MD LAB - POINT OF CARE ORDERABLES Performing Organization Address [facility] de Phone Number [facility] [phone] [place] [phone] * GLUCOSE - POINT OF CARE (01/14/2020 4:51 PM CDT) Glucose WB/POC 92 70 - 106 mg/dL 01/16/2020 7:24 AM CDT [facility] Specimen Type Arterial/C apillary 01/16/2020 7:24 AM CDT [facility] Blood BLOOD SPECIMEN / Unknown 01/14/2020 4:51 PM CDT 01/16/2020 7:24 AM CDT Dylon Agudelo MD LAB - POINT OF CARE ORDERABLES Performing Organization Address City/[facility] Co de Phone Number [facility] [address] [place] [phone] * (ABNORMAL) GLUCOSE - POINT OF CARE (01/14/2020 12:07 PM CDT) Glucose WB/POC 110(H) 70 - 106 mg/dL 01/16/2020 7:25 AM CDT [facility] Specimen Type Arterial/C apillary 01/16/2020 7:25 AM CDT [facility] Blood BLOOD SPECIMEN / Unknown 01/14/2020 12:07 PM CDT 01/16/2020 7:25 AM CDT Dylon Agudelo MD LAB - POINT OF CARE ORDERABLES Performing Organization Address [facility] Co de Phone Number [facility] [address] [place] [phone] * (ABNORMAL) GLUCOSE - POINT OF CARE (01/14/2020 7:33 AM CDT) Glucose WB/POC 126(H) 70 - 106 mg/dL 01/16/2020 7:25 AM CDT [facility] Specimen Type Arterial/C apillary 01/16/2020 7:25 AM CDT [facility] Blood BLOOD SPECIMEN / Unknown 01/14/2020 7:33 AM CDT 01/16/2020 7:25 AM CDT Dylon Agudelo MD LAB - POINT OF CARE ORDERABLES Performing Organization Address [facility] Co de Phone Number [facility] [address] [place] [phone] * (ABNORMAL) RENAL FUNCTION PANEL (01/14/2020 5:07 AM CDT) Glucose 106(H) 70 - 105 mg/dL 01/14/2020 5:56 AM CDT [facility] Sodium 133(L) 136 - 145 mmol/L 01/14/2020 5:56 AM CDT [facility] Potassium 4.2 3.5 - 5.1 mmol/L 01/14/2020 5:56 AM CDT [facility] Chloride 94(L) 98 - 107 mmol/L 01/14/2020 5:56 AM CDT [facility] CO2 28 23 - 31 mmol/L 01/14/2020 5:56 AM CDT [facility] Calcium 8.5 8.4 - 10.4 mg/dL 01/14/2020 5:56 AM CDT [facility] Anion Gap 11 8 - 16 mmol/L 01/14/2020 5:56 AM CDT [facility] BUN 28(H) 8.4 - 25.7 mg/dL 01/14/2020 5:56 AM CDT [facility] Creatinine 5.47(H) 0.72 - 1.25 mg/dL 01/14/2020 5:56 AM CDT [facility] Albumin 3.4 3.2 - 4.6 gm/dL 01/14/2020 5:56 AM CDT [facility] Phosphorus 5.2(H) 2.3 - 4.7 mg/dL 01/14/2020 5:56 AM CDT [facility] eGFR by MDRD 10 mL/min/1.7 3m2 01/14/2020 5:56 AM CDT [facility] eGFR by MDRD 12 mL/min/1.7 3m2 01/14/2020 5:56 AM CDT [facility] Blood BLOOD SPECIMEN / Unknown Venipuncture / Unknown 01/14/2020 5:07 AM CDT 01/14/2020 5:12 AM CDT Naveen Blackman MD LAB - CHEMISTRY DELFINO VIDAL Performing Organization Address [facility] Co de Phone Number [facility] [address] [place] [phone] * POTASSIUM BLOOD (01/13/2020 9:58 PM CDT) Potassium 4.2 3.5 - 5.1 mmol/L 01/13/2020 10:25 PM CDT [facility] Blood BLOOD SPECIMEN / Unknown Venipuncture / Unknown 01/13/2020 9:58 PM CDT 01/13/2020 10:12 PM CDT Naveen Blackman MD LAB - CHEMISTRY DELFINO VIDAL Performing Organization Address City/State/[facility] Co de Phone Number [facility] [address] [place] [phone] * (ABNORMAL) GLUCOSE - POINT OF CARE (01/13/2020 9:23 PM CDT) Pathologist [facility] Glucose WB/POC 138(H) 70 - 106 mg/dL 01/16/2020 7:25 AM CDT [facility] Specimen Type Arterial/C apillary 01/16/2020 7:25 AM CDT [facility] Blood BLOOD SPECIMEN / Unknown 01/13/2020 9:23 PM CDT 01/16/2020 7:25 AM CDT Dylon Agudelo MD LAB - POINT OF CARE ORDERABLES [facility] [address] [place] [phone] * HEPATITIS B SURFACE ANTIGEN W RFLX CONFIRMATION (01/13/2020 8:34 AM CDT) Pathologist [facility] HBsAg Non Reactive Non Reactive 01/13/2020 9:32 AM CDT [facility] Blood BLOOD SPECIMEN / Unknown 01/13/2020 8:34 AM CDT 01/13/2020 8:34 AM CDT Naveen Blackman MD LAB - CHEMISTRY [facility] [address] [place] [phone] * HEPATITIS B SURFACE ANTIBODY QUANT (01/13/2020 8:34 AM CDT) [facility] Hepatitis B Virus Surface Antibody Quantitative 0.24 0.00 - 7.99 mIU/ml 01/13/2020 3:27 PM CDT [facility] HBsAb Non Reactive Non Reactive 01/13/2020 3:27 PM CDT [facility] Blood BLOOD SPECIMEN / Unknown 01/13/2020 8:34 AM CDT 01/13/2020 8:34 AM CDT Narrative [facility] - 01/13/2020 3:27 PM CDT Individual is considered not immune to HBV infection Naveen Blackman MD LAB - SEROLOGY ORDER SANDER Performing Organization Address [facility]/ZIP Co de Phone Number [facility] [address] [place] [address] * (ABNORMAL) RENAL FUNCTION PANEL (01/13/2020 2:40 AM CDT) Glucose 124(H) 70 - 105 mg/dL 01/13/2020 3:14 AM CDT [facility] Sodium 137 136 - 145 mmol/L 01/13/2020 3:14 AM CDT [facility] Potassium 6.1(HH) 3.5 - 5.1 mmol/L 01/13/2020 3:14 AM CDT [facility] Chloride 100 98 - 107 mmol/L 01/13/2020 3:14 AM CDT [facility] CO2 25 23 - 31 mmol/L 01/13/2020 3:14 AM CDT [facility] Calcium 8.8 8.4 - 10.4 mg/dL 01/13/2020 3:14 AM CDT [facility] Anion Gap 12 8 - 16 mmol/L 01/13/2020 3:14 AM CDT [facility] BUN 56(H) 8.4 - 25.7 mg/dL 01/13/2020 3:14 AM CDT [facility] Creatinine 8.37(H) 0.72 - 1.25 mg/dL 01/13/2020 3:14 AM CDT [facility] Albumin 3.9 3.2 - 4.6 gm/dL 01/13/2020 3:14 AM CDT [facility] Phosphorus 5.4(H) 2.3 - 4.7 mg/dL 01/13/2020 3:14 AM CDT [facility] eGFR by MDRD 6 mL/min/1.7 3m2 01/13/2020 3:14 AM CDT [facility] eGFR by MDRD 8 mL/min/1.7 3m2 01/13/2020 3:14 AM CDT [facility] Blood BLOOD SPECIMEN / Unknown Venipuncture / Unknown 01/13/2020 2:40 AM CDT 01/13/2020 2:48 AM CDT Naveen Blackman MD LAB - CHEMISTRY DELFINO VIDAL [facility] [address] [place] [phone] * (ABNORMAL) HGB HCT PANEL (01/12/2020 11:08 PM CDT) [facility] Hemoglobin 10.0(L) 12.0 - 17.6 gm/dL 01/12/2020 11:40 PM CDT [facility] Hematocrit 32.1(L) 35.2 - 51.7 % 01/12/2020 11:40 PM CDT [facility] Blood BLOOD SPECIMEN / Unknown Venipuncture / Unknown 01/12/2020 11:08 PM CDT 01/12/2020 11:32 PM CDT Dylon Agudelo MD LAB - HEMATOLOGY ORD ERABLES [facility] [address] [place] [phone] * (ABNORMAL) BASIC METABOLIC PANEL (CALCIUM TOTAL) (01/12/2020 11:08 PM CDT) [facility] Glucose 127(H) 70 - 105 mg/dL 01/12/2020 11:57 PM CDT [facility] Sodium 140 136 - 145 mmol/L 01/12/2020 11:57 PM CDT [facility] Potassium 6.3(HH) 3.5 - 5.1 mmol/L 01/12/2020 11:57 PM CDT [facility] Chloride 102 98 - 107 mmol/L 01/12/2020 11:57 PM CDT [facility] CO2 26 23 - 31 mmol/L 01/12/2020 11:57 PM CDT [facility] Calcium 8.8 8.4 - 10.4 mg/dL 01/12/2020 11:57 PM CDT [facility] Anion Gap 12 8 - 16 mmol/L 01/12/2020 11:57 PM CDT [facility] BUN 55(H) 8.4 - 25.7 mg/dL 01/12/2020 11:57 PM CDT [facility] Creatinine 8.28(H) 0.72 - 1.25 mg/dL 01/12/2020 11:57 PM CDT [facility] eGFR by MDRD 6 mL/min/1.7 3m2 01/12/2020 11:57 PM CDT [facility] eGFR by MDRD 8 mL/min/1.7 3m2 01/12/2020 11:57 PM CDT [facility] Blood BLOOD SPECIMEN / Unknown Venipuncture / Unknown 01/12/2020 11:08 PM CDT 01/12/2020 11:31 PM CDT Dylon Agudelo MD LAB - CHEMISTRY DELFINO VIDAL Performing Organization Address [facility]/ZIP Co de Phone Number [facility] [phone] [place] [phone] * (ABNORMAL) GLUCOSE - POINT OF CARE (01/12/2020 5:33 PM CDT) Glucose WB/POC 111(H) 70 - 106 mg/dL 01/16/2020 7:24 AM CDT [facility] Specimen Type Arterial/C apillary 01/16/2020 7:24 AM CDT [facility] Blood BLOOD SPECIMEN / Unknown 01/12/2020 5:33 PM CDT 01/16/2020 7:24 AM CDT Dylon Agudelo MD LAB - POINT OF CARE ORDERABLES Performing Organization Address [facility] de Phone Number [facility] [address] [place] [address] [phone] * (ABNORMAL) GLUCOSE - POINT OF CARE (01/12/2020 12:30 PM CDT) Glucose WB/POC 117(H) 70 - 106 mg/dL 01/14/2020 7:06 AM CDT [facility] Specimen Type Arterial/C apillary 01/14/2020 7:06 AM CDT [facility] Blood BLOOD SPECIMEN / Unknown 01/12/2020 12:30 PM CDT 01/14/2020 7:06 AM CDT Dylon Agudelo MD LAB - POINT OF CARE ORDERABLES Performing Organization Address [facility] Co de Phone Number [facility] [phone] [place] [address] [phone] * (ABNORMAL) BASIC METABOLIC PANEL (CALCIUM TOTAL) (01/12/2020 8:56 AM CDT) Glucose 89 70 - 105 mg/dL 01/12/2020 9:18 AM CDT [facility] Sodium 139 136 - 145 mmol/L 01/12/2020 9:18 AM CDT [facility] Potassium 5.5(H) 3.5 - 5.1 mmol/L 01/12/2020 9:18 AM CDT [facility] Chloride 99 98 - 107 mmol/L 01/12/2020 9:18 AM CDT [facility] CO2 28 23 - 31 mmol/L 01/12/2020 9:18 AM CDT [facility] Calcium 9.8 8.4 - 10.4 mg/dL 01/12/2020 9:18 AM CDT [facility] Anion Gap 12 8 - 16 mmol/L 01/12/2020 9:18 AM CDT [facility] BUN 50(H) 8.4 - 25.7 mg/dL 01/12/2020 9:18 AM CDT [facility] Creatinine 7.67(H) 0.72 - 1.25 mg/dL 01/12/2020 9:18 AM CDT [facility] eGFR by MDRD 7 mL/min/1.7 3m2 01/12/2020 9:18 AM CDT [facility] eGFR by MDRD 8 mL/min/1.7 3m2 01/12/2020 9:18 AM CDT [facility] Blood BLOOD SPECIMEN / Unknown Venipuncture / Unknown 01/12/2020 8:56 AM CDT 01/12/2020 9:02 AM CDT Megan Ca DO LAB - CHEMISTRY DELFINO VIDAL [facility] [address] [place] [address] documented in this encounter Visit Diagnoses Diagnosis ESRD (end stage renal disease) (HCC)- Primary End stage renal disease Preop examination Preoperative examination, unspecified 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 Not for bariatric or cardiac patients., Pre-op $ Given 01/12/2020 8:50 AM CDT 1,000 mg acetaminophen (TYLENOL) tablet 650 mg 650 mg, Oral, EVERY 6 HOURS, 20 doses, First dose on Fri01/12/20 at 1800, Last dose on Fri01/17/20 at 1200, Post-op $ Given 01/17/2020 12:11 PM CDT 650 mg $ Given 01/17/2020 7:16 AM CDT 650 mg $ Given 01/17/2020 12:59 AM CDT 650 mg acetaminophen (TYLENOL) tablet 650 mg 650 mg, [...] Given 01/18/2020 11:00 AM CDT 100 mg amLODIPine (NORVASC) tablet 5 mg 5 mg, Oral, DAILY, First dose on Fri01/12/20 at 1945, Until Discontinued $ Given 01/17/2020 8:12 AM CDT 5 mg $ Given 01/16/2020 8:17 AM CDT 5 mg $ Given 01/14/2020 9:27 AM CDT 5 mg apixaban (ELIQUIS) tablet 2.5 mg 2.5 mg, Oral, 2 TIMES DAILY, 24 doses, First dose on Fri01/18/20 at 2100, Last dose on Fri01/30/20 at 0900 $ Given 01/20/2020 1:24 PM CDT 2.5 mg $ Given 01/19/2020 8:45 PM CDT 2.5 mg $ Given 01/19/2020 8:26 AM CDT 2.5 mg aspirin chew tablet 81 mg 81 mg, Oral, 2 TIMES DAILY WITH MEALS, First dose on Fri01/12/20 at 1800, Until Discontinued, VTE Prophylaxis, post-op Hip, Post-op $ Given 01/18/2020 11:01 AM CDT 81 mg $ Given 01/17/2020 5:31 PM CDT 81 mg $ Given 01/17/2020 8:12 AM CDT 81 mg atorvastatin (LIPITOR) tablet 20 mg 20 [...] If bisacodyl ineffective use Fleets enema., Post-op celecoxib (CeleBREX) capsule 100 mg 100 mg, Oral, EVERY 12 HOURS, 10 doses, First dose on Fri01/13/20 at 0900, Last dose on Fri01/17/20 at 2100, Post-op $ Given 01/17/2020 8:06 PM CDT 100 mg $ Given 01/17/2020 8:12 AM CDT 100 mg $ Given 01/16/2020 7:39 PM CDT 100 mg celecoxib (CeleBREX) capsule 400 mg 400 mg, Oral, PRE-OP ONCE, 1 dose, On Fri01/12/20 at 0900, Pre-op $ Given 01/12/2020 8:51 AM CDT 400 mg dilTIAZem coated beads 24hr (CARDIZEM CD) capsule [...] (PEPCID) tablet 20 mg 20 mg, Oral, 2 TIMES DAILY, First dose on Fri01/12/20 at 2100, Until Discontinued, Post-op $ Given 01/13/2020 7:57 PM CDT 20 mg $ Given 01/13/2020 7:41 AM CDT 20 mg $ Given 01/12/2020 8:14 PM CDT 20 mg famotidine (PEPCID) tablet 20 mg 20 mg, Oral, DAILY, First dose (after last modification) on 01/15/20 at 0900, Until Discontinued, Post-op $ Given [...] Given 01/17/2020 4:27 PM CDT 1 tablet HYDROmorphone (DILAUDID) injection 0.5 mg 0.5 mg, Intravenous, EVERY 10 MIN PRN, Severe Pain, 4 doses, Starting on Fri01/12/20 at 1247, Until Fri01/12/20 at 1649, Maximum total of 4 doses If patient reaches max total dose, please consult anesthesiologist prior to further administration of pain meds. Hold pain meds if there are signs of hypoventilation., PACU $ Given 01/12/2020 2:00 PM CDT 0.5 mg $ Given 01/12/2020 1:00 PM CDT 0.5 mg lactated ringers infusion at 100 mL/hr, Intravenous, CONTINUOUS, Starting on Fri01/12/20 at 1300, Until Susan 01/13/20 at 0141, D/c 10 hour post op and convert to saline lock., Post-op $ New Bag/Syringe 01/12/2020 5:04 PM CDT 100 mL/hr lidocaine PF (XYLOCAINE MPF) 1 % injection 0.5 mL 0.5 mL, Infiltration, PRE-OP ONCE, 1 dose, On Fri01/12/20 at 0900, May be used (0.5 ml locally to anesthetize prior to insertion). For patients not allergic to local anesthetics., Pre-op $ Given 01/12/2020 8:52 AM CDT 0.5 mL lisinopril (PRINIVIL;ZESTRIL) tablet 5 mg 5 mg, [...] Fleets enema. Shake well before using., Post-op metoclopramide (REGLAN) tablet 10 mg 10 mg, Oral, ONCE, 1 dose, On Fri01/12/20 at 0900, Pre-op $ Given 01/12/2020 8:51 AM CDT 10 mg ondansetron (disintegrating) (ZOFRAN ODT) tablet 4 mg [...] Given 01/15/2020 8:21 AM CDT 17 g povidone-iodine (BETADINE) 5 % solution Nasal, PRE-OP ONCE, 1 dose, On Fri01/12/20 at 0900 $ Given 01/12/2020 8:51 AM CDT pregabalin (LYRICA) capsule 75 mg 75 mg, Oral, PRE-OP ONCE, 1 dose, On Fri01/12/20 at 0900, Pre-op $ Given 01/12/2020 8:51 AM CDT 75 mg rOPINIRole (REQUIP) tablet 0.5 mg 0.5 mg, Oral, AT BEDTIME, First dose on Fri01/12/20 at 2100, Until Discontinued $ Given 01/19/2020 8:44 PM CDT 0.5 mg $ Given 01/18/2020 8:48 PM CDT 0.5 mg $ Given 01/17/2020 8:06 PM CDT 0.5 mg scopolamine (TRANSDERM-SCOP) 1 patch 1 patch, Administer over 72 Hours, PRE-OP ONCE, 1 dose, On Fri01/12/20 at 0900, Apply patch behind the ear, do not [...] of scopolamine over 72 hours. $ Applied 01/12/2020 8:51 AM CDT 1 patch Behind Right Ear sevelamer carbonate (RENVELA) tablet 800 mg 800 [...] Given 01/18/2020 11:00 AM CDT 325 mg sodium polystyrene sulfonate (KAYEXALATE) suspension 15 g 15 g, Oral, ONCE, 1 dose, On Fri01/13/20 at 0200, Shake well before using. $ Given 01/13/2020 2:05 AM CDT 15 g sodium polystyrene sulfonate (KAYEXALATE) suspension 15 g 15 g, Oral, ONCE, 1 dose, On Fri01/13/20 at 0600, Shake well before using. $ Given 01/13/2020 6:18 AM CDT 15 g tamsulosin (FLOMAX) capsule 0.4 mg 0.4 mg, Oral, AT BEDTIME, First dose on Fri01/12/20 at 2100, Until Discontinued, At the same time every day after a meal. Do not crush, chew $ Given 01/19/2020 8:45 PM CDT 0.4 mg $ Given 01/18/2020 8:49 PM CDT 0.4 mg $ Given 01/17/2020 8:06 PM CDT 0.4 mg documented in this encounter Active and Recently Administered Medications Times are shown in CDT. Scheduled Medication Order 01/18/2020 01/19/2020 01/20/2020 allopurinol (ZYLOPRIM) tablet 100 mg 100 mg, Oral, DAILY, First dose on Fri01/12/20 at 1945, Until Discontinued 1100 ($ Given - Provider: Sonya Osborne RN) 0826 ($ Given - Provider: Tara Velez, KAITLYNN) 1324 ($ Given - Provider: Isabel Payan, RN - Comment: Dialysis) apixaban (ELIQUIS) tablet 2.5 mg 2.5 mg, Oral, 2 TIMES DAILY, 24 doses, First dose on Fri01/18/20 at 2100, Last dose on Fri01/30/20 at 0900 2047 ($ Given - Provider: Sol Garay RN) 0826 ($ Given - Provider: Tara Velez, KAITLYNN)2044 ($ Given - Provider: Domi Michel) 1324 ($ Given - Provider: Isabel Payan, KAITLYNN - Comment: Dialysis) aspirin chew tablet 81 [...] Provider: Isabel Payan RN - Comment: Dialysis) docusate sodium (COLACE) capsule 100 mg 100 mg, Oral, 2 TIMES DAILY, First dose on Fri01/12/20 at 2100, Until Discontinued, Post-op 1100 (Not Administered - Provider: Sonya Osborne RN - Reason: Refused-Patient)2047 ($ Given - Provider: Sol Garay, KAITLYNN) 08 ($ Given - Provider: Tara Velez, KAITLYNN)2043 ($ Given - Provider: Domi Michel) 132 ($ Given - Provider: Isabel Payan, KAITLYNN - Comment: Dialysis) epoetin ashly-EPBX (RETACRIT) injection 4,000 Units 4,000 Units, Subcutaneous, EVERY 7 DAYS, First dose on Susan 01/13/20 at 0900, Until Discontinued, Hold if systolic BP greater than 160 or diastolic BP is greater than 90. Do not shake vial. Refrigerate 0900 (Due) famotidine (PEPCID) tablet 20 mg 20 mg, Oral, DAILY, First dose (after last modification) on 01/15/20 at 0900, Until Discontinued, Post-op 1100 ($ Given - Provider: Sonya Osborne RN) 0826 ($ Given - Provider: Tara Velez, KAITLYNN) 1324 ($ Given - Provider: Isabel Payan, KAITLYNN - Comment: Dialysis) furosemide (LASIX) tablet 80 mg 80 mg, Oral, 2 TIMES DAILY, First dose on Fri01/12/20 at 2100, Until Discontinued 1100 ($ Given - Provider: Sonya Osborne RN)2047 ($ Given - Provider: Sol Garay, KAITLYNN) 0826 ($ Given - Provider: Tara Velez, KAITLYNN)2043 ($ Given - Provider: Domi Michel) 132 ($ Given - Provider: Isabel Payan RN - Comment: pt at dialysis) lisinopril (PRINIVIL;ZESTRIL) tablet 5 mg 5 mg, Oral, DAILY, First dose on Fri01/12/20 at 1945, Until Discontinued 110 ($ Given - Provider: Sonya Osborne RN) 08 ($ Given - Provider: Tara Velez, KAITLYNN) 1325 ($ Given - Provider: Isabel Payan RN [...] Velez RN)1136 ($ Given - Provider: Tara Velez RN)1737 ($ Given - Provider: Tara Velez, [...] ($ Given - Provider: Tara Velez RN) 0757 ($ Given - Provider: Isabel Payan [...] Upset, Starting on Fri01/12/20 at 1544, Until Fri01/20/20 at 1713, Post-op diphenhydrAMINE (BENADRYL) capsule 25 mg 25 mg, Oral, EVERY 6 HOURS PRN, Itching, Starting on Fri01/12/20 at 1544, Until Fri01/20/20 at 1713, Post-op 1333 ($ Given - Provider: Isabel Payan RN) HYDROcodone-acetaminophen (NORCO) 10-325 MG tablet 1 tablet 1 tablet, Oral, EVERY 4 HOURS PRN, Severe Pain, Starting on Fri01/12/20 at 1544, Until Fri01/20/20 at 1713, Allow a repeat dose for [...] baseline), Starting on Fri01/12/20 at 1544, Until Fri01/20/20 at 1713, Mix 0.4 mg Naloxone in [...] Oral, AT BEDTIME PRN, Insomnia, Starting on Fri01/13/20 at 0000, Until Fri01/20/20 at 1713, Post-op Linked Groups Order Group [...] Post-op documented in this encounter Care Teams Photo Stylist Relationship Specialty Start Date End Date Kwame Berg MD PCP - General Internal Medicine 01/19/19 [place] [id number] [address] Orthopedic Surgery Orthopedic Surgery 10/13/19 documented as of this encounter
--- OUTSIDE RECORDS SUMMARY | 2024-04-25 21:21 | XMS_ITS | Encounter Summary ---
Author Organization [facility] Address [address] [place] [address] Care Team Providers Care Small Business Director Name Role Phone Kwame Berg MD Primary Care Provider [phone] Encounter Details Date Type Department Care Team (Latest Contact Info) Description 06/28/2019 10:25 AM DRAFTER STRUCTURAL Ancillary Procedure [facility] Orthopedics - Radiology [address] [place] [id number] [place] [address] [facility] [address] [place] [address] Pain of left hip joint Social History Tobacco Use Types Packs/Day Years Used Date Smoking Tobacco: Never Assessed Sex and Gender Information Value Date Recorded Sex Assigned at Not on file Gender Identity Not on file Sexual Orientation Not on file documented as of this encounter Plan of Treatment Upcoming Encounters Date Type Department Care Team (Late st Contact Info) Description 08/23/2024 1:00 PM CDT Appointment [facility] Vascular Services [address] [facility], [address] [place] [address] [place] [address] [facility] [address] [place] [id number] [place] [address] [facility] [address] [place] [address] documented as of this encounter Procedures Procedure Name Priority Date/Time Associated Diagnosis Comments XR PELVIS 1 OR 2VW Routine 06/28/2019 10 :30 AM DRAFTER STRUCTURAL Pain of left hip joint documented in this encounter Results * XR PELVIS 1 OR 2VW (06/28/2019 10:30 AM DRAFTER STRUCTURAL) Anatomical Region Laterality Modality Pelvis Computed Radiogr aphy Narrative 06/28/2019 10:31 AM DRAFTER STRUCTURAL Genoveva Espinoza ? 06/29/2019 ??5:04 PM Please see progress notes for result. Dylon Agudelo MD DIAGNOSTIC IMAGING O [facility]LES documented in this encounter Visit Diagnoses Diagnosis Pain of left hip joint documented in this encounter Care Teams Small Business Director Relationship Specialty Start Date End Date Kwame Berg MD PCP - General Internal Medicine 01/19/19 documented as of this encounter
--- OUTSIDE RECORDS SUMMARY | 2024-04-25 21:21 | XMS_ITS | Encounter Summary ---
Author Organization [facility] Address [address] [place] [address] Care Team Providers Care Mfts Name Role Phone Kwame Berg MD Primary Care Provider [phone] Reason for Visit * Reason Onset Date Comments General 07/27/2019 Encounter Details Date Type Department Care Team (Late Contact Info) Description 07/27/2019 Telephone [facility] Orthopedics [id number] [place] [address], [address] [address] [place] [address] [address] General Social History Tobacco Use Types Packs/Day Years Used Date Smoking Tobacco: Never Assessed Sex and Gender Information Value Date Recorded Sex Assigned at Not on file Gender Identity Not on file Sexual Orientation Not on file documented as of this encounter Miscellaneous Notes * Telephone Encounter - Eladia Miranda - 07/27/2019 8:57 AM CDT .Who is calling? Wild/Caregiver/[facility] What is the reason for call? Wild called and said Dr Agudelo was sending pt to Dr Ortega. He is not sure of name. They are needing a referral, lab work and Dr Rodrigez faxed to them . Any questions call back @ [phone] Expected Response from the Clinic? Fax to [phone] documented in this encounter Plan of Treatment Upcoming Encounters Date Type Department Care Team (Late Contact Info) Description 08/23/2024 1:00 PM CDT Appointment [facility] Vascular Services [address] [facility], [address] [place] [address] [place] [address] [facility] [address] [place] [address] [place] [address] [facility] [address] [place] [address] documented as of this encounter Visit Diagnoses Not on filedocumented in this encounter Care Teams Mfts Relationship Specialty Start Date End Date Kwame Berg MD PCP - General Internal Medicine 01/19/19 documented as of this encounter
--- OUTSIDE RECORDS SUMMARY | 2024-04-25 21:21 | XMS_ITS | Clinical Summary ---
Author Organization [facility] Address [address] [place] [address] Care Team Providers Care Veneer Production Machine Operator Name Role Phone Unavailable Primary Care Provider Unavailabl e Allergies No known active allergies Medications sevelamer carbonate (RENVELA) 800 MG tablet Take 1 tablet (800 mg total) by mouth 3 (three) times a day with meals. 90 tablet 02/01/2020 Active dilTIAZem CD (CARDIZEM CD) 120 MG 24 hr capsule Take 1 capsule (120 mg total) by mouth daily. 30 capsule 02/02/2020 Active Apixaban (ELIQUIS) 2.5 MG tablet tablet Take 1 tablet (2.5 mg total) by mouth 2 (two) times a day. 60 tablet 02/01/2020 Active rOPINIRole (REQUIP) 0.5 MG tablet Take 1 tablet (0.5 mg total) by mouth nightly. 30 tablet 02/01/2020 Active furosemide (LASIX) 80 MG tablet Take 1 tablet (80 mg total) by mouth 2 (two) times a day before meals. 60 tablet 02/01/2020 Active atorvastatin (LIPITOR) 20 MG tablet Take 1 tablet (20 mg total) by mouth nightly. 30 tablet 02/01/2020 Active allopurinol (ZYLOPRIM) 100 MG tablet Take 1 tablet (100 mg total) by mouth nightly. 30 tablet 02/01/2020 Active tamsulosin (FLOMAX) 0.4 MG capsule Take 1 capsule (0.4 mg total) by mouth nightly. 30 capsule 02/01/2020 Active Active Problems Problem Noted Date Diagnosed Date Osteoarthritis 01/20/2020 Hyperglycemia 05/14/2019 Retention of urine 05/12/2019 Overview (05/12/2019): NOS Diastolic dysfunction 05/12/2019 Seroma 05/12/2019 Overview (05/12/2019): Proximal Left thigh 60 x 23 x39 mm by US Abnormality of gait 05/12/2019 Overview (05/12/2019): multifactorial Toxic metabolic encephalopathy 05/12/2019 End stage renal failure on dialysis 05/12/2019 Overview (05/12/2019): New to dialysis Assessment & Plan (05/12/2019 1:42 PM STEVEDORE HOLD): Dialysis started Debility 05/11/2019 Moderate malnutrition 05/06/2019 Anemia of chronic renal failure 04/30/2019 Chronic kidney disease, Stage V 04/30/2019 Overview (05/12/2019): Chronic kidney disease stage 5; Comments: Pt was asked to return in 3-4 mo with labs and his medications. Essential hypertension 04/30/2019 Hyperkalemia 04/30/2019 Hypervolemia 04/30/2019 Malignant neoplasm of prostate 04/30/2019 Other hyperlipidemia 04/30/2019 Metabolic acidosis 04/30/2019 Latent autoimmune diabetes mellitus in adult 06/2019 Social History Tobacco Use Types Packs/Day Years Used Date Smoking Tobacco: Former Alcohol Use Standard Drinks/Week Comments Defer 0 (1 standard drink = 0.6 oz pur e alcohol) Sex and Gender Information Value Date Recorded Sex Assigned at Not on file Legal Sex Male 1:05 PM EST Gender Identity Not on file Sexual Orientation Not on file Last Filed Vital Signs Vital Sign Reading Time Taken Comments Blood Pressure 130/56 02/01/2020 12:30 PM CDT Pulse 69 02/01/2020 12:30 PM CDT Temperature 35.9 ??C (96.7 ??F) 02/01/2020 12:30 PM C DT Respiratory Rate 20 02/01/2020 12:30 PM CDT Oxygen Saturation 99% 02/01/2020 12:30 PM CDT Inhaled Oxygen Concentration - - Weight 60.5 kg (133 lb 6.4 oz) 01/23/2020 5:20 A M CDT Height 177.8 cm (5' 10) 01/20/2020 5:22 PM CDT Body Mass Index 19.14 01/20/2020 5:22 PM CDT Plan of Treatment Not on file Advance Directives * Full Resuscitation (Latest Code Status on File) Date Activated Date Inactivated Comments 01/20/2020 6:21 PM 02/01/2020 7:50 PM * Full Resuscitation Date Activated Date Inactivated Comments 05/11/2019 10:57 PM 05/28/2019 3:12 PM
--- OUTSIDE RECORDS SUMMARY | 2024-04-25 21:21 | XMS_ITS | Encounter Summary ---
Author Organization [facility] Address [address] [place] [address] Care Team Providers Care Javascript Application Developer Name Role Phone Unavailable Primary Care Provider Unavailabl e Reason for Referral * Home Health (Routine) - Closed Specialty Diagnoses / Procedures Referred By Vivienne burrell Referred To Contact Home Health Services Diagnoses Unilateral primary osteoarthritis of right hip Mike Zamora MD [address] [place] [address] Phone: tel: fax: Referral ID Status Reason Start Date Expiration Date V isits Requested Visits Authorized [id number] Closed Specialty Services Required 01/26/2020 07/24/2020 1 1 Question Answer Reason for Consult? Weakness from hospitalization Anticipated Discharge Date 02/01/2020 Therapy/Assistance in Home PT - eval and treat, OT - eval and treat, ST - eval and treat, [facility], Home Health Aide Comments Enrw-ca-Lbso Encounter Documentation and Home Health Certification Patient Name: Ferdinand Rasmussen : 1945 A Rpac-si-Jgaw Encounter/Appointment was completed on (date) 01/26/2020 by Mike Zamora MD to evaluate the patient for Home Health services. I certify that I, or a qualified non-physician practitioner working with me, had a [id number]-[id number] encounter with this patient on the date specified above relating to the primary reason the patient requires Home Health services. The following clinical conditions noted during the encounter support the patients home bound status, in that absences from the home require considerable and taxing effort, are infrequent, and/or of short duration, or are due to the need to receive health care:Unsteady gait/frequent falls/poor balance. Requires supportive devices to walk. Activity greatly limited due to weakness. Activity greatly limited due to pain. Clinical findings demonstrating the medical necessity for home health services include: Decline in patient condition due to hospitalization, requires skilled services. Patient has history of falls, problems with poor balance, gait instability. Based on the above findings, I certify that this patient is homebound and needs intermittent fci care, physical therapy and/or speech therapy or continues to need occupational therapy. I have initiated the plan of care and this patient will be followed by a physician who will periodically review the plan of care. This order has been electronically signed. * (Routine) - Closed Specialty Diagnoses / Procedures Referred By Vivienne t Referred To Contact Diagnoses Unilateral primary osteoarthritis of right hip Mike Zamora MD [address] [place] [id number] Phone: tel: fax: Referral ID Status Reason Start Date Expiration Date V isits Requested Visits Authorized [id number] Closed Specialty Services Required 01/26/2020 07/24/2020 1 1 Question Answer Reason for Consult? weakness from hospitalization Anticipated Discharge Date 02/01/2020 Services: PT - eval and treat, OT - eval and treat, ST - eval and treat Frequency: eval and treat Duration: eval and treat Encounter Details Date Type Department Care Team (Latest Contact Info) Description 01/20/2020 5:10 PM CDT - 02/01/2020 4:40 PM CDT Hospital Encounter [facility] [address] [place] [address] Mike Zamora MD [address] [place] [address] [place] [address] [place] [address] Unilateral primary osteoarthritis of right hip (Primary Dx) Discharge Disposition: Discharged Home/Self Care Social History Tobacco Use Types Packs/Day [...] Mass Index 19.14 01/20/2020 5:22 PM CDT documented in this encounter Discharge Summaries * Manoj Morrison NP - 02/01/2020 7:56 AM CDT Hospitalist Discharge Summary REASON FOR ADMISSION: Patient Active Problem List Diagnosis ??? Debility ??? Anemia of chronic renal failure ??? Chronic kidney disease, Stage V ??? Essential hypertension ??? Hyperkalemia ??? Hypervolemia ??? Malignant neoplasm of prostate ??? Moderate malnutrition ??? Other hyperlipidemia ??? Retention of urine ??? Diastolic dysfunction ??? Seroma ??? Abnormality of gait ??? Toxic metabolic encephalopathy ??? End stage renal failure on dialysis ??? Metabolic acidosis ??? Latent autoimmune diabetes mellitus in adult ??? Hyperglycemia ??? Osteoarthritis ADMISSION DATE: 01/20/2020 DISCHARGE DATE: 02/01/20 HOSPITAL COURSE: CHIEF COMPLAINT Active Problems: Osteoarthritis ?? HISTORY OF PRESENT ILLNESS ?? The patient is a 74 y.o. y/o male with history of DM, HTN, ESRD on HD, Dementia and placement rightdeep brachial vein arteriovenous fistula 10/20/2019 and with advanced arthritis left hip underwent left hip arthoplasty by Dr. Agudelo ? Subjective: (09/26) Patient seen in during PT time and after in his room Patient mildly confused ,not in distress Patient stated had good night sleep , no pain. Denies dizziness, BP dropping to 78/47 mm/Hg , [id number] MIN last Creatinine from 01/20 was 4.52 with BUN 29 ; Hb 8.3,Plt 226 . Left hip lyric on no drainage no discharge ?? 01/22 Patient seen in during PT time and after in his room .Patient mildly confused ,not in distress Patient stated had good night sleep , no pain. Denies dizziness, BP 78/47 and now 100/54 mm/Hg , last Creatinine from 01/20.Yesterday had HD.was 4.52 with BUN 29 ; Hb 8.3,Plt 226 . Left hip lyric on no drainage no discharge ?? 01/23 Patient seen and evaluated on daily rounds. No overnight events reported. Patient has been participating with therapy and is doing well. Pt seen today sitting up in wheelchair. Pt denies pain at thistime, well controlled with current medications. Slept well and appetite good. Last BM 01/23/2020, noissues. Voiding well. Patient denies any chest pain, palpitations, shortness of breath, cough, abdominal pain, nausea and vomiting, or constipation. Pt reports trouble with swallowing food regular food, so his diet has been modified by the dietitian, but remains on thin liquids. Pt also complained of a sore throat so lozenges were ordered Afebrile 98 BP 133/67 HR 69 Labs reviewed. Reviewed care with patient and RN. No other needs or concerns expressed at this time. ?? 01/24 Patient seen and evaluated on daily rounds. No overnight events reported. Patient has been participating with therapy and is doing well. Pt seen today laying in bed, during dialysis. Pt denies pain at this time, well controlled with current medications. Slept well and appetite good. Last BM 01/22, no issues. Voiding well. Patient denies any chest pain, palpitations, shortness of breath, cough, abdominal pain, nausea and vomiting, or constipation. Afebrile 98.6 BP 99/64 HR 84 Labs reviewed. Reviewed care with patient and RN. No other needs or concerns expressed at this time. ?? 01/25 Patient doing ok No new issues to report Doing well ?? 01/27/20 Patient seen and evaluated on daily rounds. No over night events reported. Patient denies any fever, chills, chest pain, shortness of breath, abdominal pain, nausea or vomiting. Patient reports doingokay with no issues of bowel or bladder. No pain reported when seen ?? 01/28/20 Patient seen and evaluated on daily rounds. No over night events reported. Patient denies any fever, chills, chest pain, shortness of breath, abdominal pain, nausea or vomiting. Discussed with waxer floor Dr. Blackman about Lasix dosing, patient will be continued on Lasix to prevent hypovolemia post dialysis since he is still able to make urine. Also will be started on IV iron with dialysis and Epogen ?? 01/28 The patient is also being seen for follow-up of all current problems, BP, BS , HR, labs and strength. Follow up on pain, swallowing, bladder and bowel function.??Labs and VS reviewed. patient slept ok last night. Appatite and PO ok. Strength improving in therapy Patient seen and evaluated on daily rounds. No overnight events reported. Patent participating withtherapy and cares. Patient denies any chest pain no palpitations no shortness of breath no cough. Pt up in chair in therapy BP better ?? 01/29 The patient is also being seen for follow-up of all current problems, BP, BS , HR, labs and strength. Follow up on pain, swallowing, bladder and bowel function.??Labs and VS reviewed. patient slept ok last night. Appatite and PO ok. Strength improving in therapy Patient seen and evaluated on daily rounds. No overnight events reported. Patent participating withtherapy and cares. Patient denies any chest pain no palpitations no shortness of breath no cough. BNP 36, HR low once, BP increasing ?? 01/30 The patient is being seen for follow-up of all current problems, BP, BS , HR, labs and strength. Follow up on pain, swallowing, bladder and bowel function. Patient denies any chest pain, palpitations, shortness of breath, cough, abdominal pain, nausea, vomiting, diarrhea or constipation. No overnight events. + L ankle pain. Pain controlled on meds prescribed. Bowel movement 01/29. Case discussed with Dr. Zamora, physiatry. Check Ankle xray and uric acid level + burning sensation to L ankle that keeps me up all night Due for dialysis, pt reports I dont want dialysis any more Uric acid level low 3.3 Appetite good and states slept well. Patient participating with therapy and is doing well. No further needs expressed at this time. 01/31 The patient is being seen for follow-up of all current problems, BP, BS , HR, labs and strength. Follow up on pain, swallowing, bladder and bowel function. Patient denies any chest pain, palpitations, shortness of breath, cough, abdominal pain, nausea, vomiting, diarrhea or constipation. No overnight events. Denies pain. Pain controlled on meds prescribed. Bowel movement 01/29 Due for discharge to home today Lyric have been removed previously to hip area and yesterday photo taken. See media. Incision line clean and nearly healed. No open areas and no drainage. Steri strips x 2 to incision line. Discussed follow up appts with pt. NO ankle xray result noted in [facility]. Afebrile HR 70 bp 110/55 sats 100 % RA Dialysis day due today. L ankle Xray obtained 1433, no acute process. ? REVIEW OF SYSTEMS General: no weight loss, no fever, no chills, no anorexia Skin: no rash Eyes: no blurry vision Ears/Nose/Throat: no nasal congestion, no sore throat Respiratory: no cough, no dyspnea, no wheezing Cardiovascular: no chest pain, no ankle swelling Gastrointestinal: no nausea, no vomiting, no diarrhea, no constipation, no abdominal pain. No melena, no bright red blood per rectum Genitourinary: no dysuria, no hematuria Musculoskeletal: no joint pain, no myalgia, + muscle weakness Neurologic: no seizures, no tremors, no fainting, no focal weakness , tingling or numbness Hematologic/Lymphatic: no abnormal bleeding, no abnormal bruising Endocrine: no heat or cold intolerance, no polydipsia, no polyuria Psychiatric: no anxiety, no depression Allergy/Immunology: no seasonal allergies, no joint stiffness in morning ? PAST MEDICAL HISTORY Medical History Past Medical History: Diagnosis Date ??? Diabetes mellitus ? Diabetes mellitus 05/12/2019 ??? End stage renal failure on dialysis 05/12/2019 ?? New to dialysis ??? Hypertension ? Other abnormal clinical findings ? Seroma 05/12/2019 ?? Proximal Left thigh 60 x 23 x39 mm by US ?? PAST SURGICAL HISTORY Surgical History No past surgical history on file. ?? ALLERGIES No Known Allergies ?? HOME MEDICATIONS Prior to Admission medications Medication Sig Start Date End Date Taking? Authorizing Provider acetaminophen (TYLENOL) 325 MG tablet 1 tablet (325 mg total) by PO/Per Tube route every 6 (six) hours as needed for mild pain (1 - 3) or Temp > or equal to 101F (38.3C). 05/28/19 ? Florencia Moulton MD allopurinol (ZYLOPRIM) 100 MG tablet Take 1 tablet (100 mg total) by mouth daily. 05/28/19 ? Florencia Moulton MD atorvastatin (LIPITOR) 20 MG tablet Take 1 tablet (20 mg total) by mouth daily. 05/28/19 ? MD Nico Diclofenac Sodium (VOLTAREN) 1 % gel Apply 2 g topically 2 (two) times a day. 05/28/19 ? Florencia Moulton MD docusate sodium (COLACE) 100 MG capsule Take 1 capsule (100 mg total) by mouth daily. 05/28/19 ?Florencia Moulton MD donepezil (ARICEPT) 10 MG tablet Take 1 tablet (10 mg total) by mouth nightly. 05/28/19 ? Florencia Moulton MD folic acid (FOLVITE) 1 MG tablet Take 1 tablet (1 mg total) by mouth daily. 05/28/19 ? Florencia Moulton MD furosemide (LASIX) 80 MG tablet Take 1 tablet (80 mg total) by mouth 2 (two) times a day diuretic. 05/28/19 ? Florencia Moulton MD lidocaine (LIDOCARE) 4 % patch patch Place 2 patches on the skin daily. 05/28/19 ? Florencia Moulton MD oxyCODONE-acetaminophen (PERCOCET) 5-325 MG per tablet Take 1 tablet by mouth every 6 (six) hours as needed for moderate pain (4 - 6). Max Daily Amount: 4 tablets 05/28/19 ? Florencia Moulton MD rOPINIRole (REQUIP) 0.5 MG tablet Take 1 tablet (0.5 mg total) by mouth Three times per week with dialysis. 05/29/19 ? Florencia Moulton MD tamsulosin (FLOMAX) 0.4 MG capsule Take 1 capsule (0.4 mg total) by mouth nightly. 05/28/19 ? Florencia Moulton MD ? CURRENT MEDICATIONS ?? CURRENT FACILITY-ADMINISTERED MEDICATIONS: ??? ACETAMINOPHEN (TYLENOL) TABLET 650 MG, 650 MG, ORAL, Q6H PRN, NICOLE MAGAÑA MD, 650 MG AT 01/22/202144 ??? ALLOPURINOL (ZYLOPRIM) TABLET 100 MG, 100 MG, ORAL, NIGHTLY, MIKE ZAMORA MD, 100 MG AT 01/30/202036 ??? APIXABAN (ELIQUIS) TABLET 2.5 MG, 2.5 MG, ORAL, BID, NICOLE MAGAÑA MD, 2.5 MG AT 01/31/20 08 ??? ATORVASTATIN (LIPITOR) TABLET 20 MG, 20 MG, ORAL, NIGHTLY, NICOLE MAGAÑA MD, 20 MG AT 01/30/202036 ??? BENZOCAINE-MENTHOL (CEPACOL) 1 LOZENGE, 1 LOZENGE, ORAL, TID PRN, NICOLE MAGAÑA MD, 1 LOZENGE AT 01/25/20 0758 ??? BISACODYL (DULCOLAX) SUPPOSITORY 10 MG, 10 MG, RECTAL, DAILY PRN, NICOLE MAGAÑA MD ??? DILTIAZEM CD (CARDIZEM CD) 24 HR CAPSULE 120 MG, 120 MG, ORAL, ONCE A DAY, CARMEN BLACKMAN MD, 120 MG AT 01/29/20 0905 ??? DIPHENHYDRAMINE (BENADRYL) TABLET 25 MG, 25 MG, ORAL, Q6H PRN, NICOLE MAGAÑA MD ??? DOCUSATE SODIUM (COLACE) CAPSULE 100 MG, 100 MG, ORAL, BID, NICOLE MAGAÑA MD, 100 MG AT 01/31/20 08 ??? FAMOTIDINE (PEPCID) TABLET 20 MG, 20 MG, ORAL, Q48H, NICOLE MAGAÑA MD, 20 MG AT 01/31/20 08 ??? FUROSEMIDE (LASIX) TABLET 80 MG, 80 MG, ORAL, BID AC, CARMEN BLACKMAN MD, 80 MG AT 01/30/20 1555 ??? HEPARIN (PORCINE) INJECTION 1,000 UNITS, 1,000 UNITS, INTRAVENOUS, TTHSAT W/ DIALYSIS, CARMEN BLACKMAN MD, 1,000 UNITS AT 01/29/20 1405 ??? HEPARIN (PORCINE) INJECTION 4,300 UNITS, 4,300 UNITS, INTRACATHETER, ONCE PER DAY ON Fri SAT, CARMEN BLACKMAN MD, 4,300 UNITS AT 01/29/20 1518 ??? HYDROCODONE-ACETAMINOPHEN (NORCO) 5-325 MG PER TABLET 1 TABLET, 1 TABLET, ORAL, Q6H PRN, 1 TABLET AT 01/30/20 0710 OR HYDROCODONE-ACETAMINOPHEN (LORCET PLUS) 10-325 MG PER TABLET 1 TABLET, 1 TABLET, ORAL, Q6H PRN, NICOLE MAGAÑA MD, 1 TABLET AT 01/31/20 0803 ??? ONDANSETRON ODT (ZOFRAN-ODT) DISINTEGRATING TABLET 4 MG, 4 MG, ORAL, Q6H PRN, NICOLE MAGAÑA MD ??? POLYETHYLENE GLYCOL (MIRALAX) PACKET 17 G, 17 G, ORAL, ONCE A DAY, NICOLE MAGAÑA MD, 17 G AT 01/31/20 0804 ??? ROPINIROLE (REQUIP) TABLET 0.5 MG, 0.5 MG, ORAL, NIGHTLY, NICOLE MAGAÑA MD, 0.5 MG AT 01/30/20 2036 ??? SEVELAMER CARBONATE (RENVELA) TABLET 800 MG, 800 MG, ORAL, TID WITH MEALS, NICOLE MAGAÑA MD, 800 MG AT 01/31/20 1207 ??? SODIUM CHLORIDE 0.9 % INFUSION 0-500 ML, 0-500 ML, INTRAVENOUS (CONTINUOUS INFUSION), PRN DURING DIALYSIS, CAREMN BLACKMAN MD, 500 ML AT 01/29/20 1522 ??? SODIUM CHLORIDE 0.9 % INFUSION 200 ML, 200 ML, INTRAVENOUS (CONTINUOUS INFUSION), ONCE, CARMEN CURTIS MD ??? TAMSULOSIN (FLOMAX) 24 HR CAPSULE 0.4 MG, 0.4 MG, ORAL, NIGHTLY, NICOLE MAGAÑA MD, 0.4 MG AT 01/30/202036 ?? SOCIAL HISTORY reports that he has quit smoking. He does not have any smokeless tobacco history on file. Alcohol use questions deferred to the physician. Denies smoking, alcohol or illicit drugs currently ?? FAMILY HISTORY No family history on file. No known history of thromboembolism ? PHYSICAL EXAM Vital Signs: Temp: [97.6 ??F (36.4 ??C)-99.3 ??F (37.4 ??C)] 97.6 ??F (36.4 ??C) Pulse: [70-73] 73 Resp: [16] 16 BP: (106-155)/(49-64) 107/49 I/O ?? Intake/Output Summary (Last 24 hours) at 01/31/2020 1303 Last data filed at 01/31/2020 0800 Gross per 24 hour Intake 800 ml Output 450 ml Net 350 ml ?? Weights (last 3 days) ?? None ? WEIGHTS 133 lb 6.4 oz (60.5 kg) ?? General appearance: awake, alert, cooperative, no distress, MILDLY Confused HEENT: Normocephalic, No icterus, No oral lesions, Oral and nasal mucosa moist Neck: Supple, no lymphadenopathy Eyes: EOMI, Conjunctiva normal, No discharge Cardiovascular: s1-s2 audible, Normal heart rate, Normal rhythm, No murmurs, No rubs, No gallops Respiratory: Normal breath sounds, No respiratory distress, No wheezing, No rhonchi, No rales, No chest tenderness. GI: Bowel sounds normal, Soft, No tenderness, No rebound or guarding, No masses. Abdomen: soft without mass, non-tender, with normal bowel sounds, Extremities: no clubbing, cyanosis or edema, no calf tenderness Musculoskeletal:no swelling of joints or redness, FROM otherjoints Psychologic: Mood and affect appropriate, no suicidal ideation. Skin: No rash, swelling or erythema identified . 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 Please see height, weight, and BP reported elsewhere as part of this encounter ?? LABS CBC with Differential: Lab Results Component Value Date ?? WBC 4.6 01/31/2020 ?? HGB 7.8 (L) 01/31/2020 ?? HCT 24.1 (L) 01/31/2020 ?? PLT 236 01/31/2020 ?? MCV 104.8 (H) 01/31/2020 ?? MCH 33.9 01/31/2020 ?? MCHC 32.4 01/31/2020 ?? RDW 12.1 01/31/2020 [ BMP: Lab Results Component Value Date ?? NA 133 (L) 01/31/2020 ?? K 5.4 (H) 01/31/2020 ?? CL 97 (L) 01/31/2020 ?? CO2 26 01/31/2020 ?? BUN 35 (H) 01/31/2020 ?? CREATININE 6.11 (H) 01/31/2020 ?? GLUCOSE 92 01/31/2020 ?? CALCIUM 8.8 01/31/2020 ?? ANIONGAP 10 01/31/2020 ?? MG/PHOS: No results found for: MG, PHOS CKMB: No components found for: CKMB;2 PT/INR: No results found for: LABPROT, INR CMP: Lab Results Component Value Date ?? NA 133 (L) 01/31/2020 ?? K 5.4 (H) 01/31/2020 ?? CL 97 (L) 01/31/2020 ?? CO2 26 01/31/2020 ?? BUN 35 (H) 01/31/2020 ?? CREATININE 6.11 (H) 01/31/2020 ?? GLUCOSE 92 01/31/2020 ?? CALCIUM 8.8 01/31/2020 ?? ANIONGAP 10 01/31/2020 ?? LFT's: No results found for: ALB, PROT Ionized Calcium: No components found for: IONCA ABG: No results found for: PHART, CEC2RJN, PO2ART, TUG6MUN, BEART, C5JYTLSA HgBA1c: No results found for: HGBA1C Lipid Panel: No results found for: CHOL, TRIG, HDL TSH: No results found for: TSH ? IMAGING STUDIES & OTHER STUDIES ? ASSESSMENT AND PLAN ?? Advanced left hip arthritis S/p left hip arthroplasty F/u incision - incision remains well approximated and intact after removal of lyric -continue pain control with oral medication - continue PT/OT ?? Pain management norco 5 prn lorcet 10 ?? ESRD HD Consult renal follow up with waxer floor MD Carmen Blackman 01/21 CMP on Friday Chronic fluid overload Despite dialysis On lasix (01/21 BUN29; creatinine 4.52) - continue hemodialysis treatments - BNP 83, will contact nephrology 01/30 bun 35 cr 6.11 ?? Hypertension BP low on, diltiazem, lasix DC lisinopril BP improved now ?? Dyslipidemia Lipitor ?? Gout Allopurinol F/U 01/30 check uric acid ?? Diabetes mellitus Diet??controlled Accu, SSI ?? Atrial fibrillation Eliquis for atrial fibrillation Not on rate control F/U daily ?? Hypotension (01/22) NS 250 ml x 1 now. ?? Macrocytic Anemia - related to chronic renal disease - Iron levels low - may need iron IV - nephrology following 01/30 h and h 7.8/ 24.1 ?? Dementia Continue aricept ?? Restless leg requip 0.5 hs ?? BPH flomax ?? HLD Statin ?? GI Prophylaxis: Famotidine ?? DVT Prophylaxis: Apixaban 2.5 bid ?? Full Resuscitation ?? DISCHARGE DIAGNOSES: @ADMDXS@ Patient Active Problem List Diagnosis ??? Debility ??? Anemia of chronic renal failure ??? Chronic kidney disease, Stage V ??? Essential hypertension ??? Hyperkalemia ??? Hypervolemia ??? Malignant neoplasm of prostate ??? Moderate malnutrition ??? Other hyperlipidemia ??? Retention of urine ??? Diastolic dysfunction ??? Seroma ??? Abnormality of gait ??? Toxic metabolic encephalopathy ??? End stage renal failure on dialysis ??? Metabolic acidosis ??? Latent autoimmune diabetes mellitus in adult ??? Hyperglycemia ??? Osteoarthritis MEDICATIONS ON DISCHARGE: Ferdinand Rasmussen Home Medication Instructions SILVINO:[id number] Printed on:02/01/20 5141 Medication Information acetaminophen (TYLENOL) 325 MG tablet 1 tablet (325 mg total) by PO/Per Tube route every 6 (six) hours as needed for mild pain (1 - 3) orTemp > or equal to 101F (38.3C). allopurinol (ZYLOPRIM) 100 MG tablet Take 1 tablet (100 mg total) by mouth daily. atorvastatin (LIPITOR) 20 MG tablet Take 1 tablet (20 mg total) by mouth daily. Diclofenac Sodium (VOLTAREN) 1 % gel Apply 2 g topically 2 (two) times a day. docusate sodium (COLACE) 100 MG capsule Take 1 capsule (100 mg total) by mouth daily. donepezil (ARICEPT) 10 MG tablet Take 1 tablet (10 mg total) by mouth nightly. folic acid (FOLVITE) 1 MG tablet Take 1 tablet (1 mg total) by mouth daily. furosemide (LASIX) 80 MG tablet Take 1 tablet (80 mg total) by mouth 2 (two) times a day diuretic. lidocaine (LIDOCARE) 4 % patch patch Place 2 patches on the skin daily. oxyCODONE-acetaminophen (PERCOCET) 5-325 MG per tablet Take 1 tablet by mouth every 6 (six) hours as needed for moderate pain (4 - 6). Max Daily Amount: 4tablets rOPINIRole (REQUIP) 0.5 MG tablet Take 1 tablet (0.5 mg total) by mouth Three times per week with dialysis. tamsulosin (FLOMAX) 0.4 MG capsule Take 1 capsule (0.4 mg total) by mouth nightly. Your medication list ASK your doctor about these medications Last Dose Given Next Dose Due acetaminophen 325 MG tablet Instructions: 1 tablet (325 mg total) by PO/Per Tube route every 6 (six) hours as needed for mild pain (1 - 3) or Temp > or equal to 101F (38.3C). Commonly known as: TYLENOL allopurinol 100 MG tablet Instructions: Take 1 tablet (100 mg total) by mouth daily. Commonly known as: ZYLOPRIM atorvastatin 20 MG tablet Instructions: Take 1 tablet (20 mg total) by mouth daily. Commonly known as: LIPITOR Diclofenac Sodium 1 % gel Instructions: Apply 2 g topically 2 (two) times a day. Commonly known as: VOLTAREN docusate sodium 100 MG capsule Instructions: Take 1 capsule (100 mg total) by mouth daily. Commonly known as: COLACE donepezil 10 MG tablet Instructions: Take 1 tablet (10 mg total) by mouth nightly. Commonly known as: ARICEPT folic acid 1 MG tablet Instructions: Take 1 tablet (1 mg total) by mouth daily. Commonly known as: FOLVITE furosemide 80 MG tablet Instructions: Take 1 tablet (80 mg total) by mouth 2 (two) times a day diuretic. Commonly known as: LASIX lidocaine 4 % patch patch Instructions: Place 2 patches on the skin daily. Commonly known as: LIDOCARE oxyCODONE-acetaminophen 5-325 MG per tablet Instructions: Take 1 tablet by mouth every 6 (six) hours as needed for moderate pain (4 - 6). Max Daily Amount: 4 tablets Commonly known as: PERCOCET rOPINIRole 0.5 MG tablet Instructions: Take 1 tablet (0.5 mg total) by mouth Three times per week with dialysis. Commonly known as: REQUIP tamsulosin 0.4 MG capsule Instructions: Take 1 capsule (0.4 mg total) by mouth nightly. Commonly known as: FLOMAX DISCHARGE ORDERS .avs .avs VITAL SIGNS (Retired) Vitals (last 3 days) Date/Time Temp Pulse Resp BP SpO2 Weight 01/31/202022 97.6 ??F (36.4 ??C) 70 -- 110/55 100 % -- 01/31/20 1640 -- 65 -- 104/51 -- -- 01/31/20 0806 98.4 ??F (36.9 ??C) 56 16 107/49 100 % -- 01/31/20 0400 97.6 ??F (36.4 ??C) -- -- -- -- -- 01/30/202099 98.6 ??F (37 ??C) -- -- -- -- -- 01/30/202003 99.3 ??F (37.4 ??C) 73 16 106/51 99 % -- 01/30/20 1557 -- 70 -- (!) 155/64 -- -- 01/30/20 0947 -- -- -- 134/53 -- -- 01/30/20 0808 97.5 ??F (36.4 ??C) 63 18 (!) 152/82 98 % -- 01/29/20 2100 97.7 ??F (36.5 ??C) 76 18 132/52 -- -- 01/29/20 1814 96.5 ??F (35.8 ??C) 75 16 127/57 100 % -- 01/29/20 1809 -- 74 -- 142/63 -- -- 01/29/20 1800 -- 81 -- 94/48 -- -- 01/29/20 1740 -- 72 -- 109/50 -- -- 01/29/20 1721 -- -- -- 138/72 -- -- 01/29/20 1720 -- 69 -- 138/53 -- -- 01/29/20 1700 -- 68 -- 123/47 -- -- 01/29/20 1640 -- 65 -- 116/46 -- -- 01/29/20 1620 -- 63 -- 114/54 -- -- 01/29/20 1600 -- 61 -- 129/52 -- -- 01/29/20 1540 -- 66 -- 133/44 -- -- 01/29/20 1520 -- 69 -- 121/51 -- -- 01/29/20 1500 -- 64 -- 135/50 -- -- 01/29/20 1440 -- 65 -- 134/60 -- -- 01/29/20 1420 -- 64 -- 136/57 -- -- 01/29/20 1405 -- 57 -- 118/49 -- -- 01/29/20 1350 97.7 ??F (36.5 ??C) 54 16 144/53 100 % -- 01/29/20 0710 97.8 ??F (36.6 ??C) 67 16 130/58 100 % -- EXAM ON DAY ON DISCHARGE General: Patient in no acute distress, awake, alert, able to follow commands and makes needs known Head: Atrauamtic/Normocephalic Eyes: EOMI, PERRLA Ears: Hearing grossly normal, no drainage Neck: Supple, trachea midline, no JVD Cardiac: s1-s2 audible, RRR, no murmur no no gallops Respiratory: Clear to auscultation anteriorly, moderate respiratory effort, no wheeze no rhonchi nocrackles Abdomen: Soft, Non tender non distended, bowel sounds audible, +/- feeding tube, no organomegaly Extremities: No signs of cyanosis, clubbing nor edema Skin: No rashes no ulcers on visible skin Neuro: Patient AAOx3 CN2-12 intact, speech fluent, moving all extremities, Strength 5/5, good recall, coordination Psych: mood and affect appropriate NARRATIVE: Left Ankle 3 Views ?? INDICATION: Left ankle pain nontraumatic ?? Findings: No fracture or malalignment. Ankle mortise preserved. Healed mid to distal left fibular fracture. ? *Reading Radiologist: Randy Dillon on 02/01/2020 at 4:04 PM ?? DIET: As tolerated, per Psychodramatist recommendations Dietary Orders (From admission, onward) Start Ordered 01/27/20 0802 Adult Diet Therapeutic Diet; Renal without dialysis; Regular Texture (7 Regular); AllLiquids (0 Thin) Diet effective now End/Expires: Until Specified Question Answer Comment Diet Type: Therapeutic Diet Therapeutic Diet: Renal without dialysis Diet Texture: Regular Texture (7 Regular) Liquid Consistency All Liquids (0 Thin) Place order in third democrat system. Done 01/27/20 0801 ACTIVITY:As tolerated per therapist and kitman recommendations Lifestyle Physical activity ??? Days per week: Not on file ??? Minutes per session: Not on file CONDITION AT TIME OF DISCHARGE: Stable RECOMMENDED FOLLOW-UP: With PCP IN 1-2 WEEKS Dylon Agudelo MD, MD?? Orthopedic Surgery Radiology [phone] [place] [id number] Next Steps: Go on 02/11/2020 Instructions: Appointment time: 9:40am. Please bring your ID, insurance cards, and an update medication list. Wearing a mask is required to attend this appointment. Kwame Berg MD?? [id number] [place] [address] p:[phone] Next Steps: Follow up Instructions: Follow up within 7-10 days [facility]?? [address] [place] [address] p: [phone] f: [phone] Next Steps: Follow up Instructions: Friday, , Friday Restore Close Cancel Follow up with your PCP in 1week Follow Up CBC, BMP in 1week at PCP office Please keep all your follow up appts with PCP and any speciality doctors Keep your dialysis sessions at [facility] Caution use of operating machinery or driving until cleared by MD while taking narcotics. Diet and exercise : Addition of 4 to 5 servings of fruits and vegetables would help to improve cardiovascular and cerebrovascular health. Also Fish is better that any meat and white meat is better than red meat. Baked or broiled will be better than fried food. [place] [employer] recommends total of 2 and 1/2 hrs of aerobic excercise in a week which could be divided in 40 min daily for 5 days. Brisk walking or treadmill , swimming, cycling, jogging are different option. Stop smoking and alcohol No Driving until cleared by your therapist. No driving if you are on pain medicine If you have diabetes Check Blood sugars twice a day Keep a log Take it to next Doctor's visit. Call MD if sugars more than 300 or less than 70 If you had a stroke Follow Up neurologist in 1-2 weeks Call your physician For any new weakness or worsening weakness, any speech or vision disturbance and unsteady walking. Risk factors for stroke are HTN, hypercholestrol and the optimal treatment of these is important. The goal BP <140/85 mm hg systolic, goal LDL is <70, Optimal Blood glucose control as close to normal as possible with HbA1C <7 as important factors in stroke risk reduction. 4) Diet and exercise : counseling given to patient. Addition of 4 to 5 servings of fruits and vegetables would help to improve cardiovascular and cerebrovascular health. Also Fish is better that any meat and white meat is better than red meat. Baked or broiled will be better than fried food. [place] [employer] recommends total of 2 and 1/2 hrs of aerobic excercise in a week which could be divided in 40 min daily for 5 days. Brisk walking or treadmill , swimming, cycling, jogging are different option. Patient and family expressed the understanding. If you have had a surgery Follow up with the surgeon in 1-2 weeks Check incision daily Call your surgeon's office if you have questions or concerns, or for any of the following issues: -- temperature higher than 100 F -- shortness of breath -- pain that gets worse or does not get better after taking your pain medication(s) as directed -- if you cannot urinate for 6-8 hours after your surgery or if you become uncomfortable -- nausea or vomiting or cannot eat or drink -- bleeding or drainage from your incision or IV site -- if your incision or IV site looks infected (red, swollen, warm to the touch, or non-clear, foul-smelling drainage) -- if you have new or increased weakness or numbness in your arms or legs. Numbness and tingling are usually the last symptoms to resolve, and may take weeks to months. -- if you have increased neck swelling, difficulty swallowing fluids, or having a hard time breathing -- if you have any calf pain or tenderness If you have Congestive heart Failure Weigh yourself daily and keep a log. Take it to the next doctor's visit. Notify your physician of a weight gain more than 2 pounds on 1 day or pounds in one week. Follow a low salt diet - avoid using salt at the table, avoid / limit use of canned soups, processed / packaged foods, salted snacks, olives and pickles. Do not use a salt substitute without consulting your physician. Notify your physician for Chest pain, Shortness of breath, Swelling in your legs or hands, palpitations, your heart rate becomes fast or irregular,dizzy spells or blackouts. Discharge Destination: Own Home Primary Caregiver Post Discharge: Other (comment)(Niece, Radha and nephew, [place]) Physical Therapy: Discharge Summary PT Current Functional Status: Mr. Ferdinand Rasmussen's current functional mobility is as follows. TRANSFERS: Sit to and from stand with modified independence using rolling walker. Stand pivot transfer with modified independence using rolling walker. Car transfer with modified independence using rolling walker. GAIT: Ambulates up to 200 feet with rolling walker and modified independence using rolling walker. Ambulates across uneven surface with rolling walker and modified independence with safety concerns. ELEVATIONS Ascends/descends 20 steps at 6 inches each with bilateral handrails and modified independence (however requires assistance for placement of RW at top/bottom of steps for home entry). Ascends/descends 6 inch curb step: (see above). WHEELCHAIR ASSESSMENT: propels manual wheelchair up to 150 feet with close supervision and verbal cues for safety and sequencing. OBJECT LIFE SCIENCES MANAGER: Picks up object from the floor with use of rolling walker and fuse cup expander and modified independence. ?? Standardized Assessment: 2 Minute Walk Test: 98 feet with rolling walker; 6 Minute Walk Test: 212 feet with rolling walker; Timed Up and Go: 58.2 seconds with rolling walker. ?? He presents with the below listed impairments. He is to discharge to home at this time with recommended follow up home health therapy services where he would benefit from skilled rehabilitation services at this time in order to further improve upon the below listed impairments and prepare for return to prior level of function and maximize independence and safety. RUE: Full weight-bearing LUE: Full weight-bearing RLE: Weight-bearing as tolerated LLE: Weight-bearing as tolerated Patient needs assistance with the following: Balance; Negotiating ramps or curbs; Negotiating stairs; Use of ambulatory device; Walking and/or mobility; Wheelchair management PT Dry Transfer Man Goals: Care Score Legend 1 Dependent 2 Substantial/maximal assistance 3 Partial/moderate assistance 4 Supervision or touching assistance 5 Setup or clean-up assistance 6 Independent 7 Patient refused 9 N/A 10 Not attempted due to environmental limitations 88 Not attempted due to medical condition or safety concern Goal on Admission Admission Status Discharge Status Car Transfer Assistance Needed: Adaptive equipment, Physical assistance, Verbal cues Physical Assistance Level: Less than 25% Comment: With Min A for LE management and verbal cues for safety. Car Transfer - CARE Score: 3 Car Transfer - CARE Score: 3 (01/21/20 1440 : Kylie Sanchez PT) Car Transfer - CARE Score: 6 (01/31/20 1226 : Kylie Sanchez PT) Walk 10 Feet Assistance Needed: Adaptive equipment, Incidental touching Physical Assistance Level: No physical assistance Comment: Ambulates up to 107 feet with RW and CGA Walk 10 Feet - CARE Score: 4 Walk 10 Feet - CARE Score: 4 (01/21/20 1440 : Kylie Sanchez PT) Walk 10 Feet - CARE Score: 6 (01/31/20 1226 : Kylie Sanchez PT) Walk 50 Feet with Two Turns Assistance Needed: Adaptive equipment, Incidental touching Physical Assistance Level: No physical assistance Comment: Ambulates up to 107 feet with RW and CGA Walk 50 Feet with Two Turns - CARE Score: 4 Walk 50 Feet with Two Turns - CARE Score: 4 (01/21/20 1440 : Kylie Sanchez PT) Walk 50 Feet with Two Turns - CARE Score: 6 (01/31/20 1226 : Kylie Sanchez PT) Walk 150 Feet Assistance Needed: Adaptive equipment, Supervision Physical Assistance Level: No physical assistance Comment: Ambulates up to 107 feet with RW and CGA Reason if not Attempted: Safety concerns Walk 150 Feet - CARE Score: 88 Walk 150 Feet - CARE Score: 88 (01/21/20 1440 : Kylie Sanchez PT) Walk 150 Feet - CARE Score: 6 (01/31/20 1226 : Kylie Sanchez PT) Walking 10 Feet on Uneven Surfaces Assistance Needed: Adaptive equipment, Incidental touching Physical Assistance Level: No physical assistance Comment: With RW and CGA Walking 10 Feet on Uneven Surfaces - CARE Score: 4 Walking 10 Feet on Uneven Surfaces - CARE Score:4 (01/21/20 1440 : Kylie Sanchez PT) Walking 10 Feet on Uneven Surfaces - CARE Score: 6 (01/31/20 1226 : Kylie Sanchez PT) 1 Step (Curb) Assistance Needed: Adaptive equipment, Physical assistance Physical Assistance Level: Less than 25% Comment: Up/down 6 steps at 6 inches each with B HR and Min A 1 Step (Curb) - CARE Score: 3 1 Step (Curb) - CARE Score: 3 (01/21/20 1440 : Kylie Sanchez PT)1 Step (Curb) - CARE Score: 6 (01/31/20 1226 : Kylie Sanchez PT) 4 Steps Assistance Needed: Adaptive equipment, Physical assistance Physical Assistance Level: Less than 25% Comment: Up/down 6 steps at 6 inches each with B HR and Min A 4 Steps - CARE Score: 3 4 Steps - CARE Score: 3 (01/21/20 1440 : Kylie Sanchez PT) 4 Steps - CARE Score: 6 (01/31/20 1226 : Kylie Sanchez PT) 12 Steps Assistance Needed: Adaptive equipment, Incidental touching Physical Assistance Level: No physical assistance Comment: Up/down 6 steps at 6 inches each with B HR and Min A Reason if not Attempted: Safety concerns 12 Steps - CARE Score: 88 12 Steps - CARE Score: 88 (01/21/20 1440 : Kylie Sanchez PT) 12 Steps - CARE Score: 6 (01/31/20 1226 : Kylie Sanchez PT) Picking Up Object Assistance Needed: Adaptive equipment, Supervision Physical Assistance Level: No physical assistance Comment: Unsafe to perform at this time secondary to hip precautions. Reason if not Attempted: Safety concerns Picking Up Object - CARE Score: 88 Picking Up Object - CARE Score: 88 (01/21/20 1440 : Kylie Sanchez PT) Picking Up Object - CARE Score: 6 (01/31/20 1226 : Kylie Sanchez PT) Wheel 50 Feet with Two Turns Assistance Needed: Adaptive equipment, Physical assistance Physical Assistance Level: Less than 25% Comment: Propels wheelchair up to 75 feet with Min A prior to requiring total assisance for all remaining wheelchair mobility. Wheel 50 Feet with Two Turns - CARE Score: 3 Type of Wheelchair/Scooter: Manual Wheel 50 Feet with Two Turns - CARE Score: 3 (01/21/20 1440 : Kylie Sanchez PT) Wheel 50 Feet with Two Turns - CARE Score: 4 (01/31/20 1226 : Kylei Sanchez PT) Wheel 150 Feet Assistance Needed: Adaptive equipment, Physical assistance Physical Assistance Level: 75% or more Comment: Propels wheelchair up to 75 feet with Min A prior to requiring total assisance for all remaining wheelchair mobility. Wheel 150 Feet - CARE Score: 2 Type of Wheelchair/Scooter: Manual Wheel 150 Feet - CARE Score: 2 (01/21/20 1440 : Kylie Sanchez PT) Wheel 150 Feet - CARE Score: 4 (01/31/20 1226 : Kylie Sanchez PT) PT Other Dry Transfer Man Goals Most Recent Value Other PT Dry Transfer Man Goals Other Goals - Senior Living Senior Living 1, Dry Transfer Man 2 Filed on: 01/21/20201456 Other Senior Living Goal 1 Pt to perform all transfer mobility with LRAD and Mod I. Filed on: 01/21/20201456 Other Senior Living Goal 1 Status Established Filed on: 01/21/20201456 Other Senior Living Goal 2 Pt to perform 2MWT with a distance of at least 70 feet with LRAD. Filed on: 01/21/2020 145 Other Dry Transfer Man Goal 2 Status Established Filed on: 01/21/20201456 Expected Achievement Date 02/04/20 Filed on: 01/21/2020 145 Occupational Therapy Discharge Summary OT Current Functional Status: Ferdinand Rasmussen is completing the following: EATING: with modified independence ORAL HYGIENE:with modified independence TOILETING:with supervision BATHING:with setup assistance UPPER BODY DRESSING:with modified independence LOWER BODY DRESSING: with supervision using AE and verbal cues FOOTWEAR:with supervision using AE and verbal cues ROLL RIGHT/LEFT:with modified independence SIT TO LYING:with modified independence LYING TO SIT: with modified independence SIT TO STAND: with modified independence CHAIR/BED TO CHAIR TRANSFER:with modified independence TOILET TRANSFER:with modified independence Ferdinand Rasmussen has demonstrated progress eating, oral care, bathing, dressing bed mobility and functional transfers. Mr. Rasmussen also demonstrates improved endurance, standing tolerance and effective use of adaptive equipment. Ferdinand Rasmussen continues to present with impaired functional mobility, impaired balance, impaired cognition, delayed processing/direction following, and impaired strength limiting independence with ADLs and functional transfers. Ferdinand Rasmussen would benefit from continued OT in the home health setting to maximize safety/independence with self-care, functional mobility, IADL participation, leisure pursuits and community access/mobility. RUE: Full weight-bearing LUE: Full weight-bearing RLE: Weight-bearing as tolerated LLE: Weight-bearing as tolerated Patient needs assistance with the following: Activities of daily living; Sitting balance; Reaching; Going out in the community; Use of bathroom equipment; Positioning; Rolling; Memory Prosthetic/Orthotic Required: No OT Dry Transfer Man Goals: Care Score Legend 1 Dependent 2 Substantial/maximal assistance 3 Partial/moderate assistance 4 Supervision or touching assistance 5 Setup or clean-up assistance 6 Independent 7 Patient refused 9 N/A 10 Not attempted due to environmental limitations 88 Not attempted due to medical condition or safety concern Goal on Admission Admission Status Discharge Status Eating Assistance Needed: Set-up / clean-up Physical Assistance Level: No physical assistance Comment: 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 Eating - CARE Score: 5 Eating - CARE Score: 5 (01/21/20505 : Yue Cerda RN) Eating - CARE Score: 6 (01/31/201654 : Carlos Caba OT) Oral Hygiene Assistance Needed: Set-up / clean-up Physical Assistance Level: 25%-49% Comment: Pt able to complete oral care with setup assist for item retrieval and opening of groomingitems Oral Hygiene - CARE Score: 3 Oral Hygiene - CARE Score: 3 (01/21/20505 : Yue Cerda RN) OralHygiene - CARE Score: 6 (01/31/201654 : Carlos Caba OT) Toileting Hygiene Assistance Needed: Set-up / clean-up Physical Assistance Level: Total assistance Comment: Per nursing report - pt requires total assistance, requiring assist for clothing management and hygiene Toileting Hygiene - CARE Score: 5 Toileting Hygiene - CARE Score: 5 (01/21/20505 : Yue Cerda RN) Toileting Hygiene - CARE Score: 4 (01/31/201654 : Carlos Caba OT) Shower/Bathe Self Assistance Needed: Physical assistance Physical Assistance Level: 25%-49% Comment: Activity not completed this shift Shower/Bathe Self - CARE Score: 3 Shower/Bathe Self - CARE Score: 3 (01/21/20821 : Carlos Caba OT) Shower/Bathe Self - CARE Score: 5 (01/31/201654 : Carlos Caba OT) Upper Body Dressing Assistance Needed: Set-up / clean-up Physical Assistance Level: No physical assistance Comment: No shirt available for pt to don/doff. Pt able to don/hospital gown with setup assistance. Reason if not Attempted: Environmental limitations Upper Body Dressing - CARE Score: 10 Upper Body Dressing - CARE Score: 10 (01/21/20821 : Carlos Elder OT) Upper Body Dressing - CARE Score: 6 (01/31/201654 : Carlos Caba OT) Lower Body Dressing Assistance Needed: Physical assistance Physical Assistance Level: Total assistance Comment: Pt had on a hospital gown. Was not soiled, did not have to change it. Lower Body Dressing - CARE Score: 1 Lower Body Dressing - CARE Score: 1 (01/21/20821 : Carlos Caba OT) Lower Body Dressing - CARE Score: 4 (01/31/201654 : Carlos Caba OT) Putting On/Taking Off Footwear Assistance Needed: Physical assistance Physical Assistance Level: Total assistance Comment: Assisted pt to don on socks Reason if not Attempted: Environmental limitations Putting On/Taking Off Footwear - CARE Score: 1 Putting On/Taking Off Footwear - CARE Score: 1 (01/21/20505 : Yue Cerda RN) Putting On/Taking Off Footwear - CARE Score: 4 (01/31/201654 : Carlos Caba OT) Roll Left and Right Assistance Needed: Physical assistance Physical Assistance Level: Less than 25% Comment: Min assist to advance LLE Roll Left and Right - CARE Score: 3 Roll Left and Right - CARE Score: 3 (01/21/20821 : Carlos Caba OT) Roll Left and Right - CARE Score: 6 (01/31/201654 : Carlos Caba OT) Sit to Lying Assistance Needed: Physical assistance Physical Assistance Level: 25%-49% Comment: Minimal assistance to elevate LLE Sit to Lying - CARE Score: 3 Sit to Lying - CARE Score: 3 (01/21/20505 : Yue Cerda RN) Sit to Lying - CARE Score: 6 (01/31/201654 : Carlos Caba OT) Lying to Sitting on Side of Bed Assistance Needed: Physical assistance Physical Assistance Level: Less than 25% Comment: Pt did not sit up Reason if not Attempted: Safety concerns Lying to Sitting on Side of Bed - CARE Score: 88 Lying to Sitting on Side of Bed - CARE Score: 88 (01/21/20505 : Yue Cerda RN) Lying to Sitting on Side of Bed - CARE Score: 6 (01/31/201654 :Carlos Caba OT) Sit to Stand Assistance Needed: Physical assistance Physical Assistance Level: Less than 25% Comment: Pt did not stand Reason if not Attempted: Safety concerns Sit to Stand - CARE Score: 88 Sit to Stand - CARE Score: 88 (01/21/20505 : Yue Cerda RN) Sit to Stand - CARE Score: 6 (01/31/201654 : Carlos Caba OT) Chair/[place] Transfer Assistance Needed: Physical assistance Physical Assistance Level: Less than 25% Comment: Min assist due to impaired force production, LLE strength and impaired balance. Verbal cues required for safety and sequencing Chair/Kfn-fw-Eobkw Transfer - CARE Score: 3 Chair/Yfq-sl-Bfmlo Transfer - CARE Score: 3 (01/21/20821 : Carlos Caba OT) Chair/Jvb-ao-Mkyti Transfer - CARE Score: 6 (01/31/201654 : Carlos Caba OT) Toilet Transfer Assistance Needed: Physical assistance Physical Assistance Level: Less than 25% Comment: Minimal assistance secondary to impaired force production and decreased safety awareness with sequencing Reason if not Attempted: Safety concerns Toilet Transfer - CARE Score: 88 Toilet Transfer - CARE Score: 88 (01/21/20 0506 : Yue Cerda RN) Toilet Transfer - CARE Score: 6 (01/31/20 1655 : Carlos Caba OT) Speech Therapy Discharge Summary DIRECTOR INBOUND SALES Current Functional Status: Mr. Rasmussen is a 74-year-old male referred to speech therapy for evaluation and treatment following recent hospitalization with a diagnosis of Unilateral primary osteoarthritis, right hip and presence of left artificial hip joint. Comorbidities include ESRD, osteoarthritis. Past medical history is significant for CVA, HTN, Cancer, pre hypercholesterolemia. Prior to this hospitalization pt. Was able to consume a regular diet per pt. report. Precautions include: aspiration, safety. Mr. Rasmussen's current functional status is as follows: DIET: Regular solids and thin liquids; Patient improved in swallow and no pain or globus sensation. SWALLOWING STRATEGIES: Slow??rate, small bites/sips, alternate solids/liquids, upright with all intake. No further speech therapy warranted and he is not exhibiting dysphagia. Dry Transfer Man Goals: Goal Discharge Status Swallowing Details: Pt will tolerate least restrictive diet with no clinical signs of aspiration, utilizing instructed compensatory strategies, to improve efficiency of swallow for increased hydration and nutrition. Swallowing Expected Achievement Date: 02/08/20 CC: No primary care provider on file. TIME SPENT ON DISCHARGE: more than 30 minutes Cosigned by Misty Hathaway MD at 02/03/2020 7:38 PM CDT Associated attestation - Misty Hathaway MD - 02/03/2020 8:38 PM EDT The patient is being seen for follow-up of all current problems, BP, BS , HR, labs and strength. Follow up on pain, swallowing, bladder and bowel function. Strength improving, able to do therapy ok. I saw and evaluated the patient face to face in conjunction with the BISQUE WARE DIPPER and agree with the management and disposition of the patient. History also obtained from Nurse and staff about how the patient did overnight and during the day. I performed mario portions of the follow up, review of labs and radiology and evaluation. I agree with the subjective, physical exam and assessment and plan details as outlined in the note below. Discussed the mario medical decision making- both assessment and plan, rehabilitation goals and treatment plan with patient, BISQUE WARE DIPPER , nursing staff, kitman and the members of the team. documented in this encounter Discharge Instructions * Discharge Instructions* Manoj Morrison NP - 02/01/2020 8:14 AM CDT Follow up with your PCP in 1week Follow Up CBC, BMP in 1week at PCP office Please keep all your follow up appts with PCP and any speciality doctors Keep your dialysis sessions at [facility] Caution use of operating machinery or driving until cleared by MD while taking narcotics. Diet and exercise : Addition of 4 to 5 servings of fruits and vegetables would help to improve cardiovascular and cerebrovascular health. Also Fish is better that any meat and white meat is better than red meat. Baked or broiled will be better than fried food. [place] [employer] recommends total of 2 and 1/2 hrs of aerobic excercise in a week which could be divided in 40 min daily for 5 days. Brisk walking or treadmill , swimming, cycling, jogging are different option. Stop smoking and alcohol No Driving until cleared by your therapist. No driving if you are on pain medicine If you have diabetes Check Blood sugars twice a day Keep a log Take it to next Doctor's visit. Call MD if sugars more than 300 or less than 70 If you had a stroke Follow Up neurologist in 1-2 weeks Call your physician For any new weakness or worsening weakness, any speech or vision disturbance and unsteady walking. Risk factors for stroke are HTN, hypercholestrol and the optimal treatment of these is important. The goal BP <140/85 mm hg systolic, goal LDL is <70, Optimal Blood glucose control as close to normal as possible with HbA1C <7 as important factors in stroke risk reduction. 4) Diet and exercise : counseling given to patient. Addition of 4 to 5 servings of fruits and vegetables would help to improve cardiovascular and cerebrovascular health. Also Fish is better that any meat and white meat is better than red meat. Baked or broiled will be better than fried food. [place] [employer] recommends total of 2 and 1/2 hrs of aerobic excercise in a week which could be divided in 40 min daily for 5 days. Brisk walking or treadmill , swimming, cycling, jogging are different option. Patient and family expressed the understanding. If you have had a surgery Follow up with the surgeon in 1-2 weeks Check incision daily Call your surgeon's office if you have questions or concerns, or for any of the following issues: -- temperature higher than 100 F -- shortness of breath -- pain that gets worse or does not get better after taking your pain medication(s) as directed -- if you cannot urinate for 6-8 hours after your surgery or if you become uncomfortable -- nausea or vomiting or cannot eat or drink -- bleeding or drainage from your incision or IV site -- if your incision or IV site looks infected (red, swollen, warm to the touch, or non-clear, foul-smelling drainage) -- if you have new or increased weakness or numbness in your arms or legs. Numbness and tingling are usually the last symptoms to resolve, and may take weeks to months. -- if you have increased neck swelling, difficulty swallowing fluids, or having a hard time breathing -- if you have any calf pain or tenderness If you have Congestive heart Failure Weigh yourself daily and keep a log. Take it to the next doctor's visit. Notify your physician of a weight gain more than 2 pounds on 1 day or pounds in one week. Follow a low salt diet - avoid using salt at the table, avoid / limit use of canned soups, processed / packaged foods, salted snacks, olives and pickles. Do not use a salt substitute without consulting your physician. Notify your physician for Chest pain, Shortness of breath, Swelling in your legs or hands, palpitations, your heart rate becomes fast or irregular,dizzy spells or blackouts. * Discharge Instr - Activity* Charlotte Yanez RN - 02/01/2020 11:11 AM CDT Report to your surgeon's office for any fever greater than 101 F, abnormal drainage-ie. Drainage not present on discharge, foul smelling odor from incision. * Discharge Instr- Wound* Charlotte Yanez RN - 02/01/2020 11:09 AM CDT Keep incision clean and dry. May wash with soap and water. Pat hip area dry. May leave open to air. documented in this encounter Medications at Time of Discharge allopurinol (ZYLOPRIM) 100 MG tablet Take 1 tablet (100 mg total) by mouth nightly. 30 tablet 02/01/2020 Apixaban (ELIQUIS) 2.5 MG tablet tablet Take 1 tablet (2.5 mg total) by mouth 2 (two) times a day. 60 tablet 02/01/2020 atorvastatin (LIPITOR) 20 MG tablet Take 1 tablet (20 mg total) by mouth nightly. 30 tablet 02/01/2020 dilTIAZem CD (CARDIZEM CD) 120 MG 24 hr capsule Take 1 capsule (120 mg total) by mouth daily. 30 capsule 02/02/2020 furosemide (LASIX) 80 MG tablet Take 1 tablet (80 mg total) by mouth 2 (two) times a day before meals. 60 tablet 02/01/2020 rOPINIRole (REQUIP) 0.5 MG tablet Take 1 tablet (0.5 mg total) by mouth nightly. 30 tablet 02/01/2020 sevelamer carbonate (RENVELA) 800 MG tablet Take 1 tablet (800 mg total) by mouth 3 (three) times a day with meals. 90 tablet 02/01/2020 tamsulosin (FLOMAX) 0.4 MG capsule Take 1 capsule (0.4 mg total) by mouth nightly. 30 capsule 02/01/2020 HYDROcodone-aceta minophen (LORCET PLUS) 10-325 MG per tablet Take 1 tablet by mouth every 6 (six) hours as needed for severe pain (7 - 10) for up to 7 days. Max Daily Amount: 4 tablets 15 tablet 02/01/2020 02/08/2020 documented as of this encounter Progress Notes * Mike Zamora MD - 02/01/2020 4:40 PM CDT REHAB INTERDISCIPLINARY PROGRESS NOTE Patient's Primary Care Physician: No primary care provider on file. Name: Ferdinand Rasmussen Age: 74 y.o. Chief Complaint/History of Present Illness Patient reports no new complaints. History of Present Illness Obtained from family/patient/staff. PFSHX: PMH: I have reviewed and there is no change Family: I have reviewed and there is no change Social: I have reviewed and there is no change No Known Allergies REVIEW OF SYSTEMS Odynophagia resolved.. EXAMINATION Vitals: 02/01/20 1140 02/01/20 1200 02/01/20 1212 02/01/20 1230 BP: 119/70 125/59 128/64 130/56 Pulse: 80 77 75 69 Resp: 20 Temp: 96.7 ??F (35.9 ??C) TempSrc: Axillary SpO2: 99% Weight: Height: PHYSICAL EXAMINATION: GENERAL: Reveals a slender, alert, elderly gentleman, who is oriented x3. HEENT: Reveals a normocephalic, atraumatic head. He is edentulous. No noted tongue or buccal lesions. Noted placques on pharyngeal wall. No palpable cervical lymphadenopathy. Left submental non-tender chronic appearing nodule palpated. CARDIAC: Reveals a regular rate and rhythm. LUNGS: Clear to auscultation, although inspiratory effort is markedly diminished. CHEST: Tunneled catheter at right chest. ABDOMEN: Soft. Bowel sounds are present. : Unremarkable. EXTREMITIES: Reveals a well-healing right lateral thigh incision with lyric removed and steristrips placed.. Homans are negative bilaterally. SKIN: Examination of the skin reveals no breakdown over the sacrum, occiput, or heels. NEUROLOGIC: Cranial nerves 2 through 12 appear to be intact. Motor examination reveals no pronator drift. Manual muscle testing reveals grade 4- strength of the upper extremities and at the left leg,he has grade 4- strength. At the right lower extremity, formal manual muscle testing was deferred proximally, but distally, he does appear to have grade 4- strength at the knee and ankle. Sensory testing yielded some equivocal responses distal to the ankles bilaterally, but overall, he does appear to have preserved pinprick on either side of the face, trunk, and extremities. Deep tendon reflexes are diminished throughout. No ankle clonus was elicited. Cerebellar examination was unremarkable. DATA/LAB/RADIOLOGY Meds: Current Facility-Administered Medications Medication Dose Route Frequency Provider Last Rate Last Dose ??? acetaminophen (TYLENOL) tablet 650 mg 650 mg Oral Q6H PRN Nicole Magaña MD 650 mg at 01/22/20 2145 ??? allopurinol (ZYLOPRIM) tablet 100 mg 100 mg Oral Nightly Mike Zamora MD 100 mg at 01/31/202025 ??? Apixaban (ELIQUIS) tablet 2.5 mg 2.5 mg Oral BID Nicole Magaña MD 2.5 mg at 02/01/20 1222 ??? atorvastatin (LIPITOR) tablet 20 mg 20 mg Oral Nightly Nicole Magaña MD 20 mg at 01/31/202025 ??? Benzocaine-Menthol (CEPACOL) 1 lozenge 1 lozenge Oral TID PRN Nicole Magaña MD 1 lozenge at 01/25/20 0758 ??? bisacodyl (DULCOLAX) suppository 10 mg 10 mg Rectal Daily PRN Nicole Magaña MD ??? dilTIAZem CD (CARDIZEM CD) 24 hr capsule 120 mg 120 mg Oral Once a day Carmen Blackman MD 120 mg at 01/29/20 0905 ??? diphenhydrAMINE (BENADRYL) tablet 25 mg 25 mg Oral Q6H PRN Nicole Magaña MD ??? docusate sodium (COLACE) capsule 100 mg 100 mg Oral BID Nicole Magaña MD 100 mg at 01/31/202025 ??? famotidine (PEPCID) tablet 20 mg 20 mg Oral Q48H Nicole Magaña MD 20 mg at 01/31/20 0807 ??? furosemide (LASIX) tablet 80 mg 80 mg Oral BID AC Carmen Blackman MD 80 mg at 01/30/20 1555 ??? heparin (porcine) injection 1,000 Units 1,000 Units Intravenous TThSat w/ Dialysis Carmen Blackman MD 1,000 Units at 02/01/20 0842 ??? heparin (porcine) injection 4,300 Units 4,300 Units Intracatheter Once per day on Fri Carmen Blackman MD 4,300 Units at 02/01/20 0843 ??? HYDROcodone-acetaminophen (NORCO) 5-325 MG per tablet 1 tablet 1 tablet Oral Q6H PRN Nicole Magaña MD 1 tablet at 01/30/20 0710 Or ??? HYDROcodone-acetaminophen (LORCET PLUS) 10-325 MG per tablet 1 tablet 1 tablet Oral Q6H PRN Nicole Magaña MD 1 tablet at 02/01/20 0228 ??? ondansetron ODT (ZOFRAN-ODT) disintegrating tablet 4 mg 4 mg Oral Q6H PRN Nicole Magaña MD ??? polyethylene glycol (MIRALAX) packet 17 g 17 g Oral Once a day Nicole Magaña MD 17 g at 01/31/20 0804 ??? rOPINIRole (REQUIP) tablet 0.5 mg 0.5 mg Oral Nightly Nicole Magaña MD 0.5 mg at 01/31/202025 ??? sevelamer carbonate (RENVELA) tablet 800 mg 800 mg Oral TID with meals Nicole Magaña MD 800 mg at 02/01/20 1223 ??? sodium chloride 0.9 % infusion 0-500 mL 0-500 mL Intravenous (Continuous Infusion) PRN During Dialysis Carmen Blackman MD 500 mL at 01/29/20 1522 ??? sodium chloride 0.9 % infusion 200 mL 200 mL Intravenous (Continuous Infusion) Once Carmen Blackman MD ??? tamsulosin (FLOMAX) 24 hr capsule 0.4 mg 0.4 mg Oral Nightly Nicoel Magaña MD 0.4 mg at 01/31/202025 Current Outpatient Medications Medication Sig Dispense Refill ??? allopurinol (ZYLOPRIM) 100 MG tablet Take 1 tablet (100 mg total) by mouth nightly. 30 tablet 0 ??? Apixaban (ELIQUIS) 2.5 MG tablet tablet Take 1 tablet (2.5 mg total) by mouth 2 (two) times a day. 60 tablet 0 ??? atorvastatin (LIPITOR) 20 MG tablet Take 1 tablet (20 mg total) by mouth nightly. 30 tablet 0 ??? [START ON 02/02/2020] dilTIAZem CD (CARDIZEM CD) 120 MG 24 hr capsule Take 1 capsule (120 mg total) by mouth daily. 30 capsule 0 ??? furosemide (LASIX) 80 MG tablet Take 1 tablet (80 mg total) by mouth 2 (two) times a day beforemeals. 60 tablet 0 ??? HYDROcodone-acetaminophen (LORCET PLUS) 10-325 MG per tablet Take 1 tablet by mouth every 6 (six) hours as needed for severe pain (7 - 10) for up to 7 days. Max Daily Amount: 4 tablets 15 tablet 0 ??? rOPINIRole (REQUIP) 0.5 MG tablet Take 1 tablet (0.5 mg total) by mouth nightly. 30 tablet 0 ??? sevelamer carbonate (RENVELA) 800 MG tablet Take 1 tablet (800 mg total) by mouth 3 (three) times a day with meals. 90 tablet 0 ??? tamsulosin (FLOMAX) 0.4 MG capsule Take 1 capsule (0.4 mg total) by mouth nightly. 30 capsule 0 Labs: Lab Results Component Value Date WBC 4.6 01/31/2020 HGB 7.8 (L) 01/31/2020 HCT 24.1 (L) 01/31/2020 MCV 104.8 (H) 01/31/2020 PLT 236 01/31/2020 Lab Results Component Value Date GLUCOSE 92 01/31/2020 CALCIUM 8.8 01/31/2020 NA 133 (L) 01/31/2020 K 5.4 (H) 01/31/2020 CO2 26 01/31/2020 CL 97 (L) 01/31/2020 BUN 35 (H) 01/31/2020 CREATININE 6.11 (H) 01/31/2020 REVIEW OF FUNCTIONAL STATUS See Discharge summary. MEDICAL DECISION MAKING/PLAN Problem List: 1. End-stage osteoarthritis of the left hip, status post left total hip arthroplasty 01/12/2020. Inpatient goals addressed. Discharge home today. 2. End-stage renal disease, on hemodialysis. Nephrology follow up and recommendations noted and appreciated. 3. Paroxysmal atrial fibrillation. jyoti Aguirre. Good rate control. 4. Dementia. Stable cognitive functioning observed. 5. Anemia. 6. Previous history of stroke. 7. Dyslipidemia. Lipitor. 8. Hypertension. BP in acceptable range. 9. Restless legs syndrome. Requip. 10. Bladder outlet obstruction related to prostatic hypertrophy. 11. History of gout. Zyloprim. No noted acute joint flares. 12. Dysphagia: resolved. 13. Bladder/bowel: Continent. Signed: MIKE ZAMORA MD 02/01/2020 4:53 PM CDT * Shahida Ken RN - 02/01/2020 12:[address] Blackman called before tx To report pt last K+ level 5.4 pt standing orders are currently 3K/2.5 CA. Received new orders for 2K/2.5ACA with UF goal 1L. BP before tx 105/46 pulse 57. Tx started at 0812 Bp 118/53. Start of tx pt given 1000 unit bolus olf heparin. During tx pt rested with eyes closed and woke up toward end of tx and watched tv. Tx ended At 1212. BP after blood return 130/56 pulse 69. Pt able to tolerate 4hr tx with UF goal of 1L. BVP 90.2. Report given to Tyshawn Yanez RN * Carmen Blackman MD - 02/01/2020 11:47 AM CDT Nephrology Progress Note Catracholuc[place] Stephen [id number] Subjective: Patient seen and examined, denies fever, chills, chest pain, sob, cough, changes in appetite, N/V, diarrhea, abdominal pain, less left hip pain Objective: Vital signs: Vitals: 02/01/20 1140 02/01/20 1200 02/01/20 1212 02/01/20 1230 BP: 119/70 125/59 128/64 130/56 Pulse: 80 77 75 69 Resp: 18 20 Temp: 96.7 ??F (35.9 ??C) TempSrc: Axillary SpO2: 99% Weight: Height: Intake/Output Summary (Last 24 hours) at 02/01/2020 1447 Last data filed at 02/01/2020 0810 Gross per 24 hour Intake 600 ml Output 450 ml Net 150 ml Intake/Output last 3 shifts: I/O last 3 completed shifts: In: 1160 [P.O.:1160] Out: 900 Intake/Output this shift: I/O this shift: In: 240 [P.O.:240] Out: - Weight: Wt Readings from Last 3 Encounters: 01/23/20 133 lb 6.4 oz (60.5 kg) 05/27/19 136 lb (61.7 kg) Medications: Scheduled/Continuous Medications Scheduled Medication Ordered Dose/Rate, Route, Frequency Last Action allopurinol (ZYLOPRIM) tablet 100 mg 100 mg, PO, Nightly Given, 100 mg at 01/30 2026 Apixaban (ELIQUIS) tablet 2.5 mg 2.5 mg, PO, BID Given, 2.5 mg at 01/31 122 atorvastatin (LIPITOR) tablet 20 mg 20 mg, PO, Nightly Given, 20 mg at 01/30 2026 dilTIAZem CD (CARDIZEM CD) 24 hr capsule 120 mg 120 mg, PO, Once a day Given, 120 mg at 01/28 0905 docusate sodium (COLACE) capsule 100 mg 100 mg, PO, BID Given, 100 mg at 01/30 2026 famotidine (PEPCID) tablet 20 mg 20 mg, PO, Q48H Given, 20 mg at 01/30 08 furosemide (LASIX) tablet 80 mg 80 mg, PO, BID AC Given, 80 mg at 01/29 1555 heparin (porcine) injection 1,000 Units 1,000 Units, IV, TThSat w/ Dialysis Given, 1,000 Units at 01/31 0842 heparin (porcine) injection 4,300 Units 4,300 Units, IK, After Dialysis Cust Given, 4,300 Units at 01/31 0843 polyethylene glycol (MIRALAX) packet 17 g 17 g, PO, Once a day Given, 17 g at 01/30 0804 rOPINIRole (REQUIP) tablet 0.5 mg 0.5 mg, PO, Nightly Given, 0.5 mg at 01/30 2026 sevelamer carbonate (RENVELA) tablet 800 mg 800 mg, PO, TID with meals Given, 800 mg at 01/31 1223 sodium chloride 0.9 % infusion 200 mL 200 mL, CI, Once Ordered tamsulosin (FLOMAX) 24 hr capsule 0.4 mg 0.4 mg, PO, Nightly Given, 0.4 mg at 01/30 2026 Current Facility-Administered Medications: ??? acetaminophen (TYLENOL) tablet 650 mg, 650 mg, Oral, Q6H PRN, Nicole Magaña MD, 650 mg at 01/22/20 2145 ??? allopurinol (ZYLOPRIM) tablet 100 mg, 100 mg, Oral, Nightly, Mike Zamora MD, 100 mg at 01/31/202025 ??? Apixaban (ELIQUIS) tablet 2.5 mg, 2.5 mg, Oral, BID, Nicole Magaña MD, 2.5 mg at 02/01/20 1222 ??? atorvastatin (LIPITOR) tablet 20 mg, 20 mg, Oral, Nightly, Nicole Magaña MD, 20 mg at 01/31/202025 ??? Benzocaine-Menthol (CEPACOL) 1 lozenge, 1 lozenge, Oral, TID PRN, Nicole Magaña MD, 1 lozenge at 01/25/20 0758 ??? bisacodyl (DULCOLAX) suppository 10 mg, 10 mg, Rectal, Daily PRN, Nicole Magaña MD ??? dilTIAZem CD (CARDIZEM CD) 24 hr capsule 120 mg, 120 mg, Oral, Once a day, Carmen Blackman MD, 120 mg at 01/29/20 0905 ??? diphenhydrAMINE (BENADRYL) tablet 25 mg, 25 mg, Oral, Q6H PRN, Nicole Magaña MD ??? docusate sodium (COLACE) capsule 100 mg, 100 mg, Oral, BID, Nicole Magaña MD, 100 mg at 01/31/202025 ??? famotidine (PEPCID) tablet 20 mg, 20 mg, Oral, Q48H, Nicole Magaña MD, 20 mg at 01/31/20 0807 ??? furosemide (LASIX) tablet 80 mg, 80 mg, Oral, BID AC, Carmen Blackman MD, 80 mg at 01/30/20 1555 ??? heparin (porcine) injection 1,000 Units, 1,000 Units, Intravenous, TThSat w/ Dialysis, Carmen Blackman MD, 1,000 Units at 02/01/20 0842 ??? heparin (porcine) injection 4,300 Units, 4,300 Units, Intracatheter, Once per day on Fri Sat, Carmen Blackman MD, 4,300 Units at 02/01/20 0843 ??? HYDROcodone-acetaminophen (NORCO) 5-325 MG per tablet 1 tablet, 1 tablet, Oral, Q6H PRN, 1 tablet at 01/30/20 0710 OR HYDROcodone-acetaminophen (LORCET PLUS) 10-325 MG per tablet 1 tablet, 1 tablet, Oral, Q6H PRN, Nicole Magaña MD, 1 tablet at 02/01/20 0228 ??? ondansetron ODT (ZOFRAN-ODT) disintegrating tablet 4 mg, 4 mg, Oral, Q6H PRN, Nicole Magaña MD ??? polyethylene glycol (MIRALAX) packet 17 g, 17 g, Oral, Once a day, Nicole Magaña MD, 17 g at 01/31/20 0804 ??? rOPINIRole (REQUIP) tablet 0.5 mg, 0.5 mg, Oral, Nightly, Nicole Magaña MD, 0.5 mg at 01/31/206 ??? sevelamer carbonate (RENVELA) tablet 800 mg, 800 mg, Oral, TID with meals, Nicole Magaña MD, 800 mg at 02/01/20 1223 ??? sodium chloride 0.9 % infusion 0-500 mL, 0-500 mL, Intravenous (Continuous Infusion), PRN During Dialysis, Carmen Blackman MD, 500 mL at 01/29/20 1522 ??? sodium chloride 0.9 % infusion 200 mL, 200 mL, Intravenous (Continuous Infusion), Once, aCrmen Curtis MD ??? tamsulosin (FLOMAX) 24 hr capsule 0.4 mg, 0.4 mg, Oral, Nightly, Niocle Magaña MD, 0.4 mg at 01/31/202025 ??? acetaminophen ??? Benzocaine-Menthol ??? bisacodyl ??? diphenhydrAMINE ??? HYDROcodone-acetaminophen OR HYDROcodone-acetaminophen ??? ondansetron ODT ??? sodium chloride Physical Exam: General: awake and alert. In NAD Lungs: CTA B/L Heart: RRR, S1 and S2 without rubs Abdomen: Soft, NT/ND, + BS Ext: Without edema Labs: Recent Labs Lab Units 01/31/200 01/27/20 0445 SODIUM MMOL/L BLOOD mmol/L 133* 133* POTASSIUM MMOL/L BLOOD mmol/L 5.4* 4.9 CHLORIDE mmol/L 97* 96* CO2 mmol/L 26 27 BUN MG/DL BLOOD mg/dL 35* 24 CREATININE mg/dL 6.11* 6.28* GLUCOSE MG/DL BLOOD mg/dL 92 87 CALCIUM MG/DL BLOOD mg/dL 8.8 8.7 ANION GAP BLOOD mmol/L 10 10 Recent Labs Lab Units 01/31/20 0500 01/27/20 0445 SODIUM MMOL/L BLOOD mmol/L 133* 133* POTASSIUM MMOL/L BLOOD mmol/L 5.4* 4.9 CHLORIDE mmol/L 97* 96* CO2 mmol/L 26 27 BUN MG/DL BLOOD mg/dL 35* 24 CREATININE mg/dL 6.11* 6.28* GLUCOSE MG/DL BLOOD mg/dL 92 87 CALCIUM MG/DL BLOOD mg/dL 8.8 8.7 Recent Labs Lab Units 01/31/20 0500 01/27/20 0445 SODIUM MMOL/L BLOOD mmol/L 133* 133* POTASSIUM MMOL/L BLOOD mmol/L 5.4* 4.9 CHLORIDE mmol/L 97* 96* CO2 mmol/L 26 27 BUN MG/DL BLOOD mg/dL 35* 24 CREATININE mg/dL 6.11* 6.28* GLUCOSE MG/DL BLOOD mg/dL 92 87 CALCIUM MG/DL BLOOD mg/dL 8.8 8.7 Recent Labs Lab Units 01/31/20 0500 01/27/20 0445 WBC X(10)9/L BLOOD x10E9/L 4.6 4.5 HGB GM/DL BLOOD gm/dL 7.8* 7.8* HCT % BLOOD % 24.1* 24.5* PLT CT X(10)9/L BLOOD x10E9/L 236 289 Assessment/ Plan: ESRD, on IHD now HTN, BP is soft now, BP medications adjusted Anemia due to CKD, on iron and epogen hgb 7.8 Advanced arthritis left hip underwent left hip arthoplasty History of recurrent volume overload, now stable on UF History of recurrent hyperkalemia, due to ESRD DM CARMEN BLACKMAN MD Office [phone] * Mike Zamora MD - 01/31/2020 5:35 PM CDT REHAB INTERDISCIPLINARY PROGRESS NOTE Patient's Primary Care Physician: No primary care provider on file. Name: Ferdinand Rasmussen Age: 74 y.o. Chief Complaint/History of Present Illness Patient unhappy with lated HD sessions, prefers to have them earlier in the day. History of Present Illness Obtained from family/patient/staff. PFSHX: PMH: I have reviewed and there is no change Family: I have reviewed and there is no change Social: I have reviewed and there is no change No Known Allergies REVIEW OF SYSTEMS Odynophagia resolved.. EXAMINATION Vitals: 01/30/20 2100 01/31/20 0400 01/31/20 0806 01/31/20 1640 BP: 107/49 104/51 Pulse: 56 65 Resp: 16 Temp: 98.6 ??F (37 ??C) 97.6 ??F (36.4 ??C) 98.4 ??F (36.9 ??C) TempSrc: Oral Oral SpO2: 100% Weight: Height: PHYSICAL EXAMINATION: GENERAL: Reveals a slender, alert, elderly gentleman, who is oriented x3. HEENT: Reveals a normocephalic, atraumatic head. He is edentulous. No noted tongue or buccal lesions. Noted placques on pharyngeal wall. No palpable cervical lymphadenopathy. Left submental non-tender chronic appearing nodule palpated. CARDIAC: Reveals a regular rate and rhythm. LUNGS: Clear to auscultation, although inspiratory effort is markedly diminished. CHEST: Tunneled catheter at right chest. ABDOMEN: Soft. Bowel sounds are present. : Unremarkable. EXTREMITIES: Reveals a well-healing right lateral thigh incision with lyric removed and steristrips placed.. Homans are negative bilaterally. SKIN: Examination of the skin reveals no breakdown over the sacrum, occiput, or heels. NEUROLOGIC: Cranial nerves 2 through 12 appear to be intact. Motor examination reveals no pronator drift. Manual muscle testing reveals grade 4- strength of the upper extremities and at the left leg,he has grade 4- strength. At the right lower extremity, formal manual muscle testing was deferred proximally, but distally, he does appear to have grade 4- strength at the knee and ankle. Sensory testing yielded some equivocal responses distal to the ankles bilaterally, but overall, he does appear to have preserved pinprick on either side of the face, trunk, and extremities. Deep tendon reflexes are diminished throughout. No ankle clonus was elicited. Cerebellar examination was unremarkable. DATA/LAB/RADIOLOGY Meds: Current Facility-Administered Medications Medication Dose Route Frequency Provider Last Rate Last Dose ??? acetaminophen (TYLENOL) tablet 650 mg 650 mg Oral Q6H PRN Nicole Magaña MD 650 mg at 01/22/205 ??? allopurinol (ZYLOPRIM) tablet 100 mg 100 mg Oral Nightly Mike aZmora MD 100 mg at 01/30/202036 ??? Apixaban (ELIQUIS) tablet 2.5 mg 2.5 mg Oral BID Nicole Magaña MD 2.5 mg at 01/31/20 0805 ??? atorvastatin (LIPITOR) tablet 20 mg 20 mg Oral Nightly Nicole Magaña MD 20 mg at 01/30/202036 ??? Benzocaine-Menthol (CEPACOL) 1 lozenge 1 lozenge Oral TID PRN Nicole Magaña MD 1 lozenge at 01/25/20 0758 ??? bisacodyl (DULCOLAX) suppository 10 mg 10 mg Rectal Daily PRN Nicole Magaña MD ??? dilTIAZem CD (CARDIZEM CD) 24 hr capsule 120 mg 120 mg Oral Once a day Carmen Blackman MD 120 mg at 01/29/20 0905 ??? diphenhydrAMINE (BENADRYL) tablet 25 mg 25 mg Oral Q6H PRN Nicole Magaña MD ??? docusate sodium (COLACE) capsule 100 mg 100 mg Oral BID Nicole Magaña MD 100 mg at 01/31/20 0807 ??? famotidine (PEPCID) tablet 20 mg 20 mg Oral Q48H Nicole Magaña MD 20 mg at 01/31/20 0807 ??? furosemide (LASIX) tablet 80 mg 80 mg Oral BID AC Carmen Blackman MD 80 mg at 01/30/20 1555 ??? heparin (porcine) injection 1,000 Units 1,000 Units Intravenous TThSat w/ Dialysis Carmen Blackman MD 1,000 Units at 01/29/20 1405 ??? heparin (porcine) injection 4,300 Units 4,300 Units Intracatheter Once per day on Fri Carmen Blackman MD 4,300 Units at 01/29/20 1518 ??? HYDROcodone-acetaminophen (NORCO) 5-325 MG per tablet 1 tablet 1 tablet Oral Q6H PRN Nicole Magaña MD 1 tablet at 01/30/20 0710 Or ??? HYDROcodone-acetaminophen (LORCET PLUS) 10-325 MG per tablet 1 tablet 1 tablet Oral Q6H PRN Nicole Magaña MD 1 tablet at 01/31/20 0803 ??? ondansetron ODT (ZOFRAN-ODT) disintegrating tablet 4 mg 4 mg Oral Q6H PRN Nicole Magaña MD ??? polyethylene glycol (MIRALAX) packet 17 g 17 g Oral Once a day Nicole Magaña MD 17 g at 01/31/20 0804 ??? rOPINIRole (REQUIP) tablet 0.5 mg 0.5 mg Oral Nightly Nicole Magaña MD 0.5 mg at 01/30/20 2036 ??? sevelamer carbonate (RENVELA) tablet 800 mg 800 mg Oral TID with meals Nicole Magaña MD 800 mg at 01/31/20 1637 ??? sodium chloride 0.9 % infusion 0-500 mL 0-500 mL Intravenous (Continuous Infusion) PRN During Dialysis Carmen Blackman MD 500 mL at 01/29/20 1522 ??? sodium chloride 0.9 % infusion 200 mL 200 mL Intravenous (Continuous Infusion) Once Carmen Blackman MD ??? tamsulosin (FLOMAX) 24 hr capsule 0.4 mg 0.4 mg Oral Nightly Nicole Magaña MD 0.4 mg at 01/30/202036 Labs: Lab Results Component Value Date WBC 4.6 01/31/2020 HGB 7.8 (L) 01/31/2020 HCT 24.1 (L) 01/31/2020 MCV 104.8 (H) 01/31/2020 PLT 236 01/31/2020 Lab Results Component Value Date GLUCOSE 92 01/31/2020 CALCIUM 8.8 01/31/2020 NA 133 (L) 01/31/2020 K 5.4 (H) 01/31/2020 CO2 26 01/31/2020 CL 97 (L) 01/31/2020 BUN 35 (H) 01/31/2020 CREATININE 6.11 (H) 01/31/2020 REVIEW OF FUNCTIONAL STATUS SM Functional Status PT Data (since 01/28/2020) Value Time User Bed Mobility Level of Assist Close Supervision 01/30/2020 10:31 AM Oumou Guevara PTA Bed Mobility Comment With HOB slightly elevated and use of bed rail, requires extra time, cues hip precautions. 01/30/2020 10:31 AM Oumou Guevara PTA Transfer to Stand 01/31/2020 12:23 PM Kylie Sanchez PT Transfer from Wheelchair 01/31/2020 12:23 PM Kylie Sanchez PT Transfer Level of Assist Modified Independent 01/31/2020 12:23 PM Kylie Sanchez PT Ambulation Level of Assist Modified Independent 01/31/2020 12:23 PM Kylie Sanchez PT Distance (feet) 200 01/31/2020 12:23 PM Kylie Sanchez PT Gait Analysis 1 x 173' with RW and Mod I over even surfaces. Pt demonstrates increased distance from RW and DEONNA, decreased foot clearance (shuffling gait pattern), increased reliance on UE support for balance, decreased stance time on L LE, and decreased overall gait speed. Pt requires seated rest break upon completion. 1 x 200 feet over even and uneven surfaces with RW and Mod I (Mod I with safety concerns over uneven surfaces). Pt demonstrates similar overall gait deviations and no noted LOB. Seated rest break upon completion. 2 x 30' with ambulation to/from toilet this session for simulated use of restroom and toilet transfers: pt performs with Mod I and increased time to complete. 01/31/2020 12:23 PM Kylie Sanchez PT WC Level of Assist Distant Supervision 01/31/2020 12:23 PM Kylie Sanchez PT Distance Traveled in WC 150 01/31/2020 12:23 PM Kylie Sanchez PT WC Analysis Pt requires significantly increased time to complete overall and use of LE's for steering and UE's for force production. Pt requires seated rest break upon completion. 01/31/2020 12:23 PM Kylie Sanchez PT MEDICAL DECISION MAKING/PLAN Problem List: 1. End-stage osteoarthritis of the left hip, status post left total hip arthroplasty 01/12/2020. Progressing well in therapies, nearing completion of rehab goals. 2. End-stage renal disease, on hemodialysis. Nephrology follow up and recommendations noted and appreciated. Adjusting Lasix per Hospitalist. 3. Paroxysmal atrial fibrillation. jyoti Aguirre. Good rate control. 4. Dementia. 5. Anemia. 6. Previous history of stroke. 7. Dyslipidemia. Lipitor. 8. Hypertension. BP in acceptable range. 9. Restless legs syndrome. Requip. 10. Bladder outlet obstruction related to prostatic hypertrophy. 11. History of gout. Zyloprim. No noted acute joint flares. 12. 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 Modified diet requested. Monitoring for clinical signs of aspiration. 13. Bladder/bowel: Continent. Last BM 01/29. Signed: MIKE ZAMORA MD 01/31/2020 5:35 PM CDT * Manoj Morrison NP - 01/31/2020 1:03 PM CDT Progress notes CHIEF COMPLAINT Active Problems: Osteoarthritis History of Present illness The patient is a 74 y.o. y/o male with history of DM, HTN, ESRD on HD, Dementia and placement rightdeep brachial vein arteriovenous fistula 10/20/2019 and with advanced arthritis left hip underwent left hip arthoplasty by Dr. Agudelo Subjective: (01/21) Patient seen in during PT time and after in his room Patient mildly confused ,not in distress Patient stated had good night sleep , no pain. Denies dizziness, BP dropping to 78/47 mm/Hg , pULSE63 MIN last Creatinine from 01/20 was 4.52 with BUN 29 ; Hb 8.3,Plt 226 . Left hip lyric on no drainage no discharge 01/22 Patient seen in during PT time and after in his room .Patient mildly confused ,not in distress Patient stated had good night sleep , no pain. Denies dizziness, BP 78/47 and now 100/54 mm/Hg , last Creatinine from 01/20.Yesterday had HD.was 4.52 with BUN 29 ; Hb 8.3,Plt 226 . Left hip lyric on no drainage no discharge 01/23 Patient seen and evaluated on daily rounds. No overnight events reported. Patient has been participating with therapy and is doing well. Pt seen today sitting up in wheelchair. Pt denies pain at thistime, well controlled with current medications. Slept well and appetite good. Last BM 01/23/2020, noissues. Voiding well. Patient denies any chest pain, palpitations, shortness of breath, cough, abdominal pain, nausea and vomiting, or constipation. Pt reports trouble with swallowing food regular food, so his diet has been modified by the dietitian, but remains on thin liquids. Pt also complained of a sore throat so lozenges were ordered Afebrile 98 BP 133/67 HR 69 Labs reviewed. Reviewed care with patient and RN. No other needs or concerns expressed at this time. 01/24 Patient seen and evaluated on daily rounds. No overnight events reported. Patient has been participating with therapy and is doing well. Pt seen today laying in bed, during dialysis. Pt denies pain at this time, well controlled with current medications. Slept well and appetite good. Last BM 01/22, no issues. Voiding well. Patient denies any chest pain, palpitations, shortness of breath, cough, abdominal pain, nausea and vomiting, or constipation. Afebrile 98.6 BP 99/64 HR 84 Labs reviewed. Reviewed care with patient and RN. No other needs or concerns expressed at this time. 01/25 Patient doing ok No new issues to report Doing well 01/27/20 Patient seen and evaluated on daily rounds. No over night events reported. Patient denies any fever, chills, chest pain, shortness of breath, abdominal pain, nausea or vomiting. Patient reports doingokay with no issues of bowel or bladder. No pain reported when seen 01/28/20 Patient seen and evaluated on daily rounds. No over night events reported. Patient denies any fever, chills, chest pain, shortness of breath, abdominal pain, nausea or vomiting. Discussed with [facility] floor Dr. Blackman about Lasix dosing, patient will be continued on Lasix to prevent hypovolemia post dialysis since he is still able to make urine. Also will be started on IV iron with dialysis and Epogen 01/28 The patient is also being seen for follow-up of all current problems, BP, BS , HR, labs and strength. Follow up on pain, swallowing, bladder and bowel function.??Labs and VS reviewed. patient slept ok last night. Appatite and PO ok. Strength improving in therapy Patient seen and evaluated on daily rounds. No overnight events reported. Patent participating withtherapy and cares. Patient denies any chest pain no palpitations no shortness of breath no cough. Pt up in chair in therapy BP better 01/29 The patient is also being seen for follow-up of all current problems, BP, BS , HR, labs and strength. Follow up on pain, swallowing, bladder and bowel function.??Labs and VS reviewed. patient slept ok last night. Appatite and PO ok. Strength improving in therapy Patient seen and evaluated on daily rounds. No overnight events reported. Patent participating withtherapy and cares. Patient denies any chest pain no palpitations no shortness of breath no cough. BNP 36, HR low once, BP increasing 01/30 The patient is being seen for follow-up of all current problems, BP, BS , HR, labs and strength. Follow up on pain, swallowing, bladder and bowel function. Patient denies any chest pain, palpitations, shortness of breath, cough, abdominal pain, nausea, vomiting, diarrhea or constipation. No overnight events. + L ankle pain. Pain controlled on meds prescribed. Bowel movement 01/29. Case discussed with Dr. Zamora, physiatry. Check Ankle xray and uric acid level + burning sensation to L ankle that keeps me up all night Due for dialysis, pt reports I dont want dialysis any more Uric acid level low 3.3 Appetite good and states slept well. Patient participating with therapy and is doing well. No further needs expressed at this time. Review of Systems General: no weight loss, no fever, no chills, no anorexia Skin: no rash Eyes: no blurry vision Ears/Nose/Throat: no nasal congestion, no sore throat Respiratory: no cough, no dyspnea, no wheezing Cardiovascular: no chest pain, no ankle swelling Gastrointestinal: no nausea, no vomiting, no diarrhea, no constipation, no abdominal pain. No melena, no bright red blood per rectum Genitourinary: no dysuria, no hematuria Musculoskeletal: no joint pain, no myalgia, + muscle weakness Neurologic: no seizures, no tremors, no fainting, no focal weakness , tingling or numbness Hematologic/Lymphatic: no abnormal bleeding, no abnormal bruising Endocrine: no heat or cold intolerance, no polydipsia, no polyuria Psychiatric: no anxiety, no depression Allergy/Immunology: no seasonal allergies, no joint stiffness in morning Past Medical History Past Medical History: Diagnosis Date ??? Diabetes mellitus ??? Diabetes mellitus 05/12/2019 ??? End stage renal failure on dialysis 05/12/2019 New to dialysis ??? Hypertension ??? Other abnormal clinical findings ??? Seroma 05/12/2019 Proximal Left thigh 60 x 23 x39 mm by US Past Surgical History No past surgical history on file. Allergies No Known Allergies Home Medications Prior to Admission medications Medication Sig Start Date End Date Taking? Authorizing Provider acetaminophen (TYLENOL) 325 MG tablet 1 tablet (325 mg total) by PO/Per Tube route every 6 (six) hours as needed for mild pain (1 - 3) or Temp > or equal to 101F (38.3C). 05/28/19 Florencia Moulton MD allopurinol (ZYLOPRIM) 100 MG tablet Take 1 tablet (100 mg total) by mouth daily. 05/28/19 Florencia Moulton MD atorvastatin (LIPITOR) 20 MG tablet Take 1 tablet (20 mg total) by mouth daily. 05/28/19 Florencia Moulton MD Diclofenac Sodium (VOLTAREN) 1 % gel Apply 2 g topically 2 (two) times a day. 05/28/19 Florencia Moulton MD docusate sodium (COLACE) 100 MG capsule Take 1 capsule (100 mg total) by mouth daily. 05/28/19 MD Nico donepezil (ARICEPT) 10 MG tablet Take 1 tablet (10 mg total) by mouth nightly. 05/28/19 Florencia Moulton MD folic acid (FOLVITE) 1 MG tablet Take 1 tablet (1 mg total) by mouth daily. 05/28/19 Florencia Moulton MD furosemide (LASIX) 80 MG tablet Take 1 tablet (80 mg total) by mouth 2 (two) times a day diuretic. 05/28/19 Florencia Moulton MD lidocaine (LIDOCARE) 4 % patch patch Place 2 patches on the skin daily. 05/28/19 Florencia Moulton MD oxyCODONE-acetaminophen (PERCOCET) 5-325 MG per tablet Take 1 tablet by mouth every 6 (six) hours as needed for moderate pain (4 - 6). Max Daily Amount: 4 tablets 05/28/19 Florencia Moulton MD rOPINIRole (REQUIP) 0.5 MG tablet Take 1 tablet (0.5 mg total) by mouth Three times per week with dialysis. 05/29/19 Florencia Moulton MD tamsulosin (FLOMAX) 0.4 MG capsule Take 1 capsule (0.4 mg total) by mouth nightly. 05/28/19 Florencia Moulton MD CURRENT Medications Current Facility-Administered Medications: ??? acetaminophen (TYLENOL) tablet 650 mg, 650 mg, Oral, Q6H PRN, Nicole Magaña MD, 650 mg at 01/22/20 2145 ??? allopurinol (ZYLOPRIM) tablet 100 mg, 100 mg, Oral, Nightly, Mike Zamora MD, 100 mg at 01/30/202036 ??? Apixaban (ELIQUIS) tablet 2.5 mg, 2.5 mg, Oral, BID, Nicole Magaña MD, 2.5 mg at 01/31/20 0805 ??? atorvastatin (LIPITOR) tablet 20 mg, 20 mg, Oral, Nightly, Nicole Magaña MD, 20 mg at 01/30/202036 ??? Benzocaine-Menthol (CEPACOL) 1 lozenge, 1 lozenge, Oral, TID PRN, Nicole Magaña MD, 1 lozenge at 01/25/20 0758 ??? bisacodyl (DULCOLAX) suppository 10 mg, 10 mg, Rectal, Daily PRN, Nicole Magaña MD ??? dilTIAZem CD (CARDIZEM CD) 24 hr capsule 120 mg, 120 mg, Oral, Once a day, Carmen Blackman MD, 120 mg at 01/29/20 0905 ??? diphenhydrAMINE (BENADRYL) tablet 25 mg, 25 mg, Oral, Q6H PRN, Nicole Magaña MD ??? docusate sodium (COLACE) capsule 100 mg, 100 mg, Oral, BID, Nicole Magaña MD, 100 mg at 01/31/20 0807 ??? famotidine (PEPCID) tablet 20 mg, 20 mg, Oral, Q48H, Nicole Magaña MD, 20 mg at 01/31/20 0807 ??? furosemide (LASIX) tablet 80 mg, 80 mg, Oral, BID AC, Carmen Blackman MD, 80 mg at 01/30/20 1555 ??? heparin (porcine) injection 1,000 Units, 1,000 Units, Intravenous, TThSat w/ Dialysis, Carmen Blackman MD, 1,000 Units at 01/29/20 1405 ??? heparin (porcine) injection 4,300 Units, 4,300 Units, Intracatheter, Once per day on Fri Sat, Carmen Blackman MD, 4,300 Units at 01/29/20 1518 ??? HYDROcodone-acetaminophen (NORCO) 5-325 MG per tablet 1 tablet, 1 tablet, Oral, Q6H PRN, 1 tablet at 01/30/20 0710 OR HYDROcodone-acetaminophen (LORCET PLUS) 10-325 MG per tablet 1 tablet, 1 tablet, Oral, Q6H PRN, Nicole Magaña MD, 1 tablet at 01/31/20 0803 ??? ondansetron ODT (ZOFRAN-ODT) disintegrating tablet 4 mg, 4 mg, Oral, Q6H PRN, Nicole Magaña MD ??? polyethylene glycol (MIRALAX) packet 17 g, 17 g, Oral, Once a day, Nicole Magaña MD, 17 g at 01/31/20 0804 ??? rOPINIRole (REQUIP) tablet 0.5 mg, 0.5 mg, Oral, Nightly, Nicole Magaña MD, 0.5 mg at 01/30/202035 ??? sevelamer carbonate (RENVELA) tablet 800 mg, 800 mg, Oral, TID with meals, Nicole Magaña MD, 800 mg at 01/31/20 1207 ??? sodium chloride 0.9 % infusion 0-500 mL, 0-500 mL, Intravenous (Continuous Infusion), PRN During Dialysis, Carmen Blackman MD, 500 mL at 01/29/20 1522 ??? sodium chloride 0.9 % infusion 200 mL, 200 mL, Intravenous (Continuous Infusion), Once, Carmen Curtis MD ??? tamsulosin (FLOMAX) 24 hr capsule 0.4 mg, 0.4 mg, Oral, Nightly, Nicole Magaña MD, 0.4 mg at 01/30/202036 Social History reports that he has quit smoking. He does not have any smokeless tobacco history on file. Alcohol use questions deferred to the physician. Denies smoking, alcohol or illicit drugs currently Family History No family history on file. No known history of thromboembolism Physical Exam Vital Signs: Temp: [97.6 ??F (36.4 ??C)-99.3 ??F (37.4 ??C)] 97.6 ??F (36.4 ??C) Pulse: [70-73] 73 Resp: [16] 16 BP: (106-155)/(49-64) 107/49 I/O Intake/Output Summary (Last 24 hours) at 01/31/2020 1303 Last data filed at 01/31/2020 0800 Gross per 24 hour Intake 800 ml Output 450 ml Net 350 ml Weights (last 3 days) None WEIGHTS 133 lb 6.4 oz (60.5 kg) General appearance: awake, alert, cooperative, no distress, MILDLY Confused HEENT: Normocephalic, No icterus, No oral lesions, Oral and nasal mucosa moist Neck: Supple, no lymphadenopathy Eyes: EOMI, Conjunctiva normal, No discharge Cardiovascular: s1-s2 audible, Normal heart rate, Normal rhythm, No murmurs, No rubs, No gallops Respiratory: Normal breath sounds, No respiratory distress, No wheezing, No rhonchi, No rales, No chest tenderness. GI: Bowel sounds normal, Soft, No tenderness, No rebound or guarding, No masses. Abdomen: soft without mass, non-tender, with normal bowel sounds, Extremities: no clubbing, cyanosis or edema, no calf tenderness Musculoskeletal:no swelling of joints or redness, FROM otherjoints Psychologic: Mood and affect appropriate, no suicidal ideation. Skin: No rash, swelling or erythema identified . 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 Please see height, weight, and BP reported elsewhere as part of this encounter Labs CBC with Differential: Lab Results Component Value Date WBC 4.6 01/31/2020 HGB 7.8 (L) 01/31/2020 HCT 24.1 (L) 01/31/2020 PLT 236 01/31/2020 MCV 104.8 (H) 01/31/2020 MCH 33.9 01/31/2020 MCHC 32.4 01/31/2020 RDW 12.1 01/31/2020 [ BMP: Lab Results Component Value Date NA 133 (L) 01/31/2020 K 5.4 (H) 01/31/2020 CL 97 (L) 01/31/2020 CO2 26 01/31/2020 BUN 35 (H) 01/31/2020 CREATININE 6.11 (H) 01/31/2020 GLUCOSE 92 01/31/2020 CALCIUM 8.8 01/31/2020 ANIONGAP 10 01/31/2020 MG/PHOS: No results found for: MG, PHOS CKMB: No components found for: CKMB;2 PT/INR: No results found for: LABPROT, INR CMP: Lab Results Component Value Date NA 133 (L) 01/31/2020 K 5.4 (H) 01/31/2020 CL 97 (L) 01/31/2020 CO2 26 01/31/2020 BUN 35 (H) 01/31/2020 CREATININE 6.11 (H) 01/31/2020 GLUCOSE 92 01/31/2020 CALCIUM 8.8 01/31/2020 ANIONGAP 10 01/31/2020 LFT's: No results found for: ALB, PROT Ionized Calcium: No components found for: IONCA ABG: No results found for: PHART, [id number], PO2ART, QVX6ACV, BEART, [id number] HgBA1c: No results found for: HGBA1C Lipid Panel: No results found for: CHOL, TRIG, HDL TSH: No results found for: TSH IMAGING STUDIES & OTHER STUDIES Assessment and plan Advanced left hip arthritis S/p left hip arthroplasty F/u incision - incision remains well approximated and intact after removal of lyric -continue pain control with oral medication - continue PT/OT Pain management norco 5 prn lorcet 10 ESRD HD Consult renal follow up with [facility] MD Carmen Blackman 01/21 CMP on Friday Chronic fluid overload Despite dialysis On lasix (01/21 BUN29; creatinine 4.52) - continue hemodialysis treatments - BNP 83, will contact nephrology 01/30 bun 35 cr 6.11 Hypertension BP low on, diltiazem, lasix DC lisinopril BP improved now Dyslipidemia Lipitor Gout Allopurinol F/U 01/30 check uric acid Diabetes mellitus Diet??controlled Accu, SSI Atrial fibrillation Eliquis for atrial fibrillation Not on rate control F/U daily Hypotension (01/22) NS 250 ml x 1 now. Macrocytic Anemia - related to chronic renal disease - Iron levels low - may need iron IV - nephrology following 01/30 h and h 7.8/ 24.1 Dementia Continue aricept Restless leg requip 0.5 hs BPH flomax HLD Statin GI Prophylaxis: Famotidine DVT Prophylaxis: Apixaban 2.5 bid Full Resuscitation Electronically signed by: MANOJ MORRISON NP, 01/31/2020 1:03 PM CDT CC: No primary care provider on file. Cosigned by Misty Hathaway MD at 02/01/2020 9:21 AM CDT Associated attestation - Misty Hathaway MD - 02/01/2020 10:21 AM EDT The patient is being seen for follow-up of all current problems, BP, BS , HR, labs and strength. Follow up on pain, swallowing, bladder and bowel function. Strength improving, able to do therapy ok. I saw and evaluated the patient face to face in conjunction with the BISQUE WARE DIPPER and agree with the management and disposition of the patient. History also obtained from Nurse and staff about how the patient did overnight and during the day. I performed mario portions of the follow up, review of labs and radiology and evaluation. I agree with the subjective, physical exam and assessment and plan details as outlined in the note below. Discussed the mario medical decision making- both assessment and plan, rehabilitation goals and treatment plan with patient, BISQUE WARE DIPPER , nursing staff, kitman and the members of the team. * Misty Hathaway MD - 01/30/2020 8:24 PM CDT Progress notes CHIEF COMPLAINT Active Problems: Osteoarthritis History of Present illness The patient is a 74 y.o. y/o male with history of DM, HTN, ESRD on HD, Dementia and placement rightdeep brachial vein arteriovenous fistula 10/20/2019 and with advanced arthritis left hip underwent left hip arthoplasty by Dr. Agudelo Subjective: (01/21) Patient seen in during PT time and after in his room Patient mildly confused ,not in distress Patient stated had good night sleep , no pain. Denies dizziness, BP dropping to 78/47 mm/Hg , pULSE63 MIN last Creatinine from 01/20 was 4.52 with BUN 29 ; Hb 8.3,Plt 226 . Left hip lyric on no drainage no discharge 01/22 Patient seen in during PT time and after in his room .Patient mildly confused ,not in distress Patient stated had good night sleep , no pain. Denies dizziness, BP 78/47 and now 100/54 mm/Hg , last Creatinine from 01/20.Yesterday had HD.was 4.52 with BUN 29 ; Hb 8.3,Plt 226 . Left hip lyric on no drainage no discharge 01/23 Patient seen and evaluated on daily rounds. No overnight events reported. Patient has been participating with therapy and is doing well. Pt seen today sitting up in wheelchair. Pt denies pain at thistime, well controlled with current medications. Slept well and appetite good. Last BM 01/23/2020, noissues. Voiding well. Patient denies any chest pain, palpitations, shortness of breath, cough, abdominal pain, nausea and vomiting, or constipation. Pt reports trouble with swallowing food regular food, so his diet has been modified by the dietitian, but remains on thin liquids. Pt also complained of a sore throat so lozenges were ordered Afebrile 98 BP 133/67 HR 69 Labs reviewed. Reviewed care with patient and RN. No other needs or concerns expressed at this time. 01/24 Patient seen and evaluated on daily rounds. No overnight events reported. Patient has been participating with therapy and is doing well. Pt seen today laying in bed, during dialysis. Pt denies pain at this time, well controlled with current medications. Slept well and appetite good. Last BM 01/22, no issues. Voiding well. Patient denies any chest pain, palpitations, shortness of breath, cough, abdominal pain, nausea and vomiting, or constipation. Afebrile 98.6 BP 99/64 HR 84 Labs reviewed. Reviewed care with patient and RN. No other needs or concerns expressed at this time. 01/25 Patient doing ok No new issues to report Doing well 01/27/20 Patient seen and evaluated on daily rounds. No over night events reported. Patient denies any fever, chills, chest pain, shortness of breath, abdominal pain, nausea or vomiting. Patient reports doingokay with no issues of bowel or bladder. No pain reported when seen 01/28/20 Patient seen and evaluated on daily rounds. No over night events reported. Patient denies any fever, chills, chest pain, shortness of breath, abdominal pain, nausea or vomiting. Discussed with [facility] floor Dr. Blackman about Lasix dosing, patient will be continued on Lasix to prevent hypovolemia post dialysis since he is still able to make urine. Also will be started on IV iron with dialysis and Epogen 01/28 The patient is also being seen for follow-up of all current problems, BP, BS , HR, labs and strength. Follow up on pain, swallowing, bladder and bowel function.??Labs and VS reviewed. patient slept ok last night. Appatite and PO ok. Strength improving in therapy Patient seen and evaluated on daily rounds. No overnight events reported. Patent participating withtherapy and cares. Patient denies any chest pain no palpitations no shortness of breath no cough. Pt up in chair in therapy BP better 10/4 The patient is also being seen for follow-up of all current problems, BP, BS , HR, labs and strength. Follow up on pain, swallowing, bladder and bowel function.??Labs and VS reviewed. patient slept ok last night. Appatite and PO ok. Strength improving in therapy Patient seen and evaluated on daily rounds. No overnight events reported. Patent participating withtherapy and cares. Patient denies any chest pain no palpitations no shortness of breath no cough. BNP 36, HR low once, BP increasing Review of Systems General: no weight loss, no fever, no chills, no anorexia Skin: no rash Eyes: no blurry vision Ears/Nose/Throat: no nasal congestion, no sore throat Respiratory: no cough, no dyspnea, no wheezing Cardiovascular: no chest pain, no ankle swelling Gastrointestinal: no nausea, no vomiting, no diarrhea, no constipation, no abdominal pain. No melena, no bright red blood per rectum Genitourinary: no dysuria, no hematuria Musculoskeletal: no joint pain, no myalgia, + muscle weakness Neurologic: no seizures, no tremors, no fainting, no focal weakness , tingling or numbness Hematologic/Lymphatic: no abnormal bleeding, no abnormal bruising Endocrine: no heat or cold intolerance, no polydipsia, no polyuria Psychiatric: no anxiety, no depression Allergy/Immunology: no seasonal allergies, no joint stiffness in morning Past Medical History Past Medical History: Diagnosis Date ??? Diabetes mellitus ??? Diabetes mellitus 05/12/2019 ??? End stage renal failure on dialysis 05/12/2019 New to dialysis ??? Hypertension ??? Other abnormal clinical findings ??? Seroma 05/12/2019 Proximal Left thigh 60 x 23 x39 mm by US Past Surgical History No past surgical history on file. Allergies No Known Allergies Home Medications Prior to Admission medications Medication Sig Start Date End Date Taking? Authorizing Provider acetaminophen (TYLENOL) 325 MG tablet 1 tablet (325 mg total) by PO/Per Tube route every 6 (six) hours as needed for mild pain (1 - 3) or Temp > or equal to 101F (38.3C). 05/28/19 Florencia Moulton MD allopurinol (ZYLOPRIM) 100 MG tablet Take 1 tablet (100 mg total) by mouth daily. 05/28/19 Florencia Moulton MD atorvastatin (LIPITOR) 20 MG tablet Take 1 tablet (20 mg total) by mouth daily. 05/28/19 Florencia Moulton MD Diclofenac Sodium (VOLTAREN) 1 % gel Apply 2 g topically 2 (two) times a day. 05/28/19 Florencia Moulton MD docusate sodium (COLACE) 100 MG capsule Take 1 capsule (100 mg total) by mouth daily. 05/28/19 MD Nico donepezil (ARICEPT) 10 MG tablet Take 1 tablet (10 mg total) by mouth nightly. 05/28/19 Florencia Moulton MD folic acid (FOLVITE) 1 MG tablet Take 1 tablet (1 mg total) by mouth daily. 05/28/19 Florencia Moulton MD furosemide (LASIX) 80 MG tablet Take 1 tablet (80 mg total) by mouth 2 (two) times a day diuretic. 05/28/19 Florencia Moulton MD lidocaine (LIDOCARE) 4 % patch patch Place 2 patches on the skin daily. 05/28/19 Florencia Moulton MD oxyCODONE-acetaminophen (PERCOCET) 5-325 MG per tablet Take 1 tablet by mouth every 6 (six) hours as needed for moderate pain (4 - 6). Max Daily Amount: 4 tablets 05/28/19 Florencia Moulton MD rOPINIRole (REQUIP) 0.5 MG tablet Take 1 tablet (0.5 mg total) by mouth Three times per week with dialysis. 05/29/19 Florencia Moulton MD tamsulosin (FLOMAX) 0.4 MG capsule Take 1 capsule (0.4 mg total) by mouth nightly. 05/28/19 Florencia Moulton MD CURRENT Medications Current Facility-Administered Medications: ??? acetaminophen (TYLENOL) tablet 650 mg, 650 mg, Oral, Q6H PRN, Nicole Magaña MD, 650 mg at 01/22/202144 ??? allopurinol (ZYLOPRIM) tablet 100 mg, 100 mg, Oral, Nightly, Mike Zamora MD, 100 mg at 01/29/202110 ??? Apixaban (ELIQUIS) tablet 2.5 mg, 2.5 mg, Oral, BID, Nicole Magaña MD, 2.5 mg at 01/30/20 0808 ??? atorvastatin (LIPITOR) tablet 20 mg, 20 mg, Oral, Nightly, Nicole Magaña MD, 20 mg at 01/29/20 2111 ??? Benzocaine-Menthol (CEPACOL) 1 lozenge, 1 lozenge, Oral, TID PRN, Nicole Magaña MD, 1 lozenge at 01/25/20 0758 ??? bisacodyl (DULCOLAX) suppository 10 mg, 10 mg, Rectal, Daily PRN, Nicole Magaña MD ??? dilTIAZem CD (CARDIZEM CD) 24 hr capsule 120 mg, 120 mg, Oral, Once a day, Carmen Blackman MD, 120 mg at 01/29/20 0905 ??? diphenhydrAMINE (BENADRYL) tablet 25 mg, 25 mg, Oral, Q6H PRN, Nicole Magaña MD ??? docusate sodium (COLACE) capsule 100 mg, 100 mg, Oral, BID, Nicole Magaña MD, 100 mg at 01/30/20 0808 ??? famotidine (PEPCID) tablet 20 mg, 20 mg, Oral, Q48H, Nicole Magaña MD, 20 mg at 01/29/20 0905 ??? furosemide (LASIX) tablet 80 mg, 80 mg, Oral, BID AC, Carmen Blackman MD, 80 mg at 01/30/20 1555 ??? heparin (porcine) injection 1,000 Units, 1,000 Units, Intravenous, TThSat w/ Dialysis, Carmen Blackman MD, 1,000 Units at 01/29/20 1405 ??? heparin (porcine) injection 4,300 Units, 4,300 Units, Intracatheter, Once per day on Fri Sat, Carmen Blackman MD, 4,300 Units at 01/29/20 1518 ??? HYDROcodone-acetaminophen (NORCO) 5-325 MG per tablet 1 tablet, 1 tablet, Oral, Q6H PRN, 1 tablet at 01/30/20 0710 OR HYDROcodone-acetaminophen (LORCET PLUS) 10-325 MG per tablet 1 tablet, 1 tablet, Oral, Q6H PRN, Nicole Magaña MD, 1 tablet at 01/22/20 1832 ??? ondansetron ODT (ZOFRAN-ODT) disintegrating tablet 4 mg, 4 mg, Oral, Q6H PRN, Nicole Magaña MD ??? polyethylene glycol (MIRALAX) packet 17 g, 17 g, Oral, Once a day, Nicole Magaña MD, 17 g at 01/30/20 1215 ??? rOPINIRole (REQUIP) tablet 0.5 mg, 0.5 mg, Oral, Nightly, Nicole Magaña MD, 0.5 mg at 01/29/202111 ??? sevelamer carbonate (RENVELA) tablet 800 mg, 800 mg, Oral, TID with meals, Nicole Magaña MD, 800 mg at 01/30/20 1655 ??? sodium chloride 0.9 % infusion 0-500 mL, 0-500 mL, Intravenous (Continuous Infusion), PRN During Dialysis, Carmen Blackman MD, 500 mL at 01/29/20 152 ??? sodium chloride 0.9 % infusion 200 mL, 200 mL, Intravenous (Continuous Infusion), Once, Carmen Curtis MD ??? tamsulosin (FLOMAX) 24 hr capsule 0.4 mg, 0.4 mg, Oral, Nightly, Nicole Magaña MD, 0.4 mg at 01/29/202111 Social History reports that he has quit smoking. He does not have any smokeless tobacco history on file. Alcohol use questions deferred to the physician. Denies smoking, alcohol or illicit drugs currently Family History No family history on file. No known history of thromboembolism Physical Exam Vital Signs: Temp: [97.5 ??F (36.4 ??C)-99.3 ??F (37.4 ??C)] 99.3 ??F (37.4 ??C) Pulse: [63-76] 73 Resp: [16-18] 16 BP: (106-155)/(51-82) 106/51 I/O Intake/Output Summary (Last 24 hours) at 01/30/20202023 Last data filed at 01/30/2020 1831 Gross per 24 hour Intake 1200 ml Output 150 ml Net 1050 ml Weights (last 3 days) None WEIGHTS 133 lb 6.4 oz (60.5 kg) General appearance: awake, alert, cooperative, no distress, MILDLY Confused HEENT: Normocephalic, No icterus, No oral lesions, Oral and nasal mucosa moist Neck: Supple, no lymphadenopathy Eyes: EOMI, Conjunctiva normal, No discharge Cardiovascular: s1-s2 audible, Normal heart rate, Normal rhythm, No murmurs, No rubs, No gallops Respiratory: Normal breath sounds, No respiratory distress, No wheezing, No rhonchi, No rales, No chest tenderness. GI: Bowel sounds normal, Soft, No tenderness, No rebound or guarding, No masses. Abdomen: soft without mass, non-tender, with normal bowel sounds, Extremities: no clubbing, cyanosis or edema, no calf tenderness Musculoskeletal:no swelling of joints or redness, FROM otherjoints Psychologic: Mood and affect appropriate, no suicidal ideation. Skin: No rash, swelling or erythema identified . 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 Please see height, weight, and BP reported elsewhere as part of this encounter Labs CBC with Differential: No results found for: WBC, RBC, HGB, HEMOGLOBIN, HCT, HEMATOCRIT, PLT, MCV, MCH, MCHC, RDW, NEUTPERCENT, MONOPERCENT, LYMPHPERCENT, BASOPERCENT[ BMP: No results found for: NA, SODIUM, K, POTASSIUM, CL, CO2, BUN, CREATININE, LABCREA, EGFR, GLU, LABGLUC, GLUCOSE, GLUCOSEFL, CALCIUM, CALCIUMUR, ANIONGAP MG/PHOS: No results found for: MG, PHOS CKMB: No components found for: CKMB;2 PT/INR: No results found for: LABPROT, INR CMP: No results found for: NA, SODIUM, K, POTASSIUM, CL, CO2, BUN, CREATININE, LABCREA, GLU, LABGLUC, GLUCOSE, PROT, CALCIUM, ALBUMIN, LABALBU, BILITOT, ALKALINEPHO, ALT, AST, ANIONGAP, EGFR LFT's: No results found for: ALB, PROT Ionized Calcium: No components found for: IONCA ABG: No results found for: PHART, [id number], PO2ART, OVT4OPV, BEART, [id number] HgBA1c: No results found for: HGBA1C Lipid Panel: No results found for: CHOL, TRIG, HDL TSH: No results found for: TSH IMAGING STUDIES & OTHER STUDIES Assessment and plan Advanced left hip arthritis S/p left hip arthroplasty F/u incision - incision remains well approximated and intact after removal of lyric -continue pain control with oral medication - continue PT/OT ESRD HD Consult renal follow up with [facility]er floor MD Carmen Blackman 01/21 CMP on Friday Chronic fluid overload Despite dialysis On lasix (01/21 BUN29; creatinine 4.52) - continue hemodialysis treatments - BNP 83, will contact nephrology Hypertension BP low on, diltiazem, lasix DC lisinopril BP improved now Dyslipidemia Lipitor Gout Allopurinol F/U Diabetes mellitus Diet??controlled Accu, SSI Atrial fibrillation Eliquis for atrial fibrillation Not on rate control F/U daily Hypotension (01/22) NS 250 ml x 1 now. Macrocytic Anemia - related to chronic renal disease - Iron levels low - may need iron IV - nephrology following Dementia Continue aricept Restless leg requip HLD Statin GI Prophylaxis: Famotidine DVT Prophylaxis: Apixaban Full Resuscitation Electronically signed by: MISTY HATHAWAY MD, 01/30/2020 8:24 PM CDT CC: No primary care provider on file. * Misty Hathaway MD - 01/29/2020 10:15 PM CDT Progress notes CHIEF COMPLAINT Active Problems: Osteoarthritis History of Present illness The patient is a 74 y.o. y/o male with history of DM, HTN, ESRD on HD, Dementia and placement rightdeep brachial vein arteriovenous fistula 10/20/2019 and with advanced arthritis left hip underwent left hip arthoplasty by Dr. Agudelo Subjective: (01/21) Patient seen in during PT time and after in his room Patient mildly confused ,not in distress Patient stated had good night sleep , no pain. Denies dizziness, BP dropping to 78/47 mm/Hg , [id number] MIN last Creatinine from 01/20 was 4.52 with BUN 29 ; Hb 8.3,Plt 226 . Left hip lyric on no drainage no discharge 01/22 Patient seen in during PT time and after in his room .Patient mildly confused ,not in distress Patient stated had good night sleep , no pain. Denies dizziness, BP 78/47 and now 100/54 mm/Hg , last Creatinine from 01/20.Yesterday had HD.was 4.52 with BUN 29 ; Hb 8.3,Plt 226 . Left hip lyric on no drainage no discharge 01/23 Patient seen and evaluated on daily rounds. No overnight events reported. Patient has been participating with therapy and is doing well. Pt seen today sitting up in wheelchair. Pt denies pain at thistime, well controlled with current medications. Slept well and appetite good. Last BM 01/23/2020, noissues. Voiding well. Patient denies any chest pain, palpitations, shortness of breath, cough, abdominal pain, nausea and vomiting, or constipation. Pt reports trouble with swallowing food regular food, so his diet has been modified by the dietitian, but remains on thin liquids. Pt also complained of a sore throat so lozenges were ordered Afebrile 98 BP 133/67 HR 69 Labs reviewed. Reviewed care with patient and RN. No other needs or concerns expressed at this time. 01/24 Patient seen and evaluated on daily rounds. No overnight events reported. Patient has been participating with therapy and is doing well. Pt seen today laying in bed, during dialysis. Pt denies pain at this time, well controlled with current medications. Slept well and appetite good. Last BM 01/22, no issues. Voiding well. Patient denies any chest pain, palpitations, shortness of breath, cough, abdominal pain, nausea and vomiting, or constipation. Afebrile 98.6 BP 99/64 HR 84 Labs reviewed. Reviewed care with patient and RN. No other needs or concerns expressed at this time. 01/25 Patient doing ok No new issues to report Doing well 01/27/20 Patient seen and evaluated on daily rounds. No over night events reported. Patient denies any fever, chills, chest pain, shortness of breath, abdominal pain, nausea or vomiting. Patient reports doingokay with no issues of bowel or bladder. No pain reported when seen 01/28/20 Patient seen and evaluated on daily rounds. No over night events reported. Patient denies any fever, chills, chest pain, shortness of breath, abdominal pain, nausea or vomiting. Discussed with waxer floor Dr. Blackman about Lasix dosing, patient will be continued on Lasix to prevent hypovolemia post dialysis since he is still able to make urine. Also will be started on IV iron with dialysis and Epogen 01/28 The patient is also being seen for follow-up of all current problems, BP, BS , HR, labs and strength. Follow up on pain, swallowing, bladder and bowel function.??Labs and VS reviewed. patient slept ok last night. Appatite and PO ok. Strength improving in therapy Patient seen and evaluated on daily rounds. No overnight events reported. Patent participating withtherapy and cares. Patient denies any chest pain no palpitations no shortness of breath no cough. Pt up in chair in therapy BP better Review of Systems General: no weight loss, no fever, no chills, no anorexia Skin: no rash Eyes: no blurry vision Ears/Nose/Throat: no nasal congestion, no sore throat Respiratory: no cough, no dyspnea, no wheezing Cardiovascular: no chest pain, no ankle swelling Gastrointestinal: no nausea, no vomiting, no diarrhea, no constipation, no abdominal pain. No melena, no bright red blood per rectum Genitourinary: no dysuria, no hematuria Musculoskeletal: no joint pain, no myalgia, + muscle weakness Neurologic: no seizures, no tremors, no fainting, no focal weakness , tingling or numbness Hematologic/Lymphatic: no abnormal bleeding, no abnormal bruising Endocrine: no heat or cold intolerance, no polydipsia, no polyuria Psychiatric: no anxiety, no depression Allergy/Immunology: no seasonal allergies, no joint stiffness in morning Past Medical History Past Medical History: Diagnosis Date ??? Diabetes mellitus ??? Diabetes mellitus 05/12/2019 ??? End stage renal failure on dialysis 05/12/2019 New to dialysis ??? Hypertension ??? Other abnormal clinical findings ??? Seroma 05/12/2019 Proximal Left thigh 60 x 23 x39 mm by US Past Surgical History No past surgical history on file. Allergies No Known Allergies Home Medications Prior to Admission medications Medication Sig Start Date End Date Taking? Authorizing Provider acetaminophen (TYLENOL) 325 MG tablet 1 tablet (325 mg total) by PO/Per Tube route every 6 (six) hours as needed for mild pain (1 - 3) or Temp > or equal to 101F (38.3C). 05/28/19 Florencia Moulton MD allopurinol (ZYLOPRIM) 100 MG tablet Take 1 tablet (100 mg total) by mouth daily. 05/28/19 Florencia Moulton MD atorvastatin (LIPITOR) 20 MG tablet Take 1 tablet (20 mg total) by mouth daily. 05/28/19 Florencia Moulton MD Diclofenac Sodium (VOLTAREN) 1 % gel Apply 2 g topically 2 (two) times a day. 05/28/19 Florencia Moulton MD docusate sodium (COLACE) 100 MG capsule Take 1 capsule (100 mg total) by mouth daily. 05/28/19 MD Nico donepezil (ARICEPT) 10 MG tablet Take 1 tablet (10 mg total) by mouth nightly. 05/28/19 Florencia Moulton MD folic acid (FOLVITE) 1 MG tablet Take 1 tablet (1 mg total) by mouth daily. 05/28/19 Florencia Moulton MD furosemide (LASIX) 80 MG tablet Take 1 tablet (80 mg total) by mouth 2 (two) times a day diuretic. 05/28/19 Florencia Moulton MD lidocaine (LIDOCARE) 4 % patch patch Place 2 patches on the skin daily. 05/28/19 Florencia Moulton MD oxyCODONE-acetaminophen (PERCOCET) 5-325 MG per tablet Take 1 tablet by mouth every 6 (six) hours as needed for moderate pain (4 - 6). Max Daily Amount: 4 tablets 05/28/19 Florencia Moulton MD rOPINIRole (REQUIP) 0.5 MG tablet Take 1 tablet (0.5 mg total) by mouth Three times per week with dialysis. 05/29/19 Florencia Moulton MD tamsulosin (FLOMAX) 0.4 MG capsule Take 1 capsule (0.4 mg total) by mouth nightly. 05/28/19 Florencia Moulton MD CURRENT Medications Current Facility-Administered Medications: ??? acetaminophen (TYLENOL) tablet 650 mg, 650 mg, Oral, Q6H PRN, Nicole Magaña MD, 650 mg at 01/22/202144 ??? allopurinol (ZYLOPRIM) tablet 100 mg, 100 mg, Oral, Nightly, Mike Zamora MD, 100 mg at 01/29/202110 ??? Apixaban (ELIQUIS) tablet 2.5 mg, 2.5 mg, Oral, BID, Nicole Magaña MD, 2.5 mg at 01/29/202110 ??? atorvastatin (LIPITOR) tablet 20 mg, 20 mg, Oral, Nightly, Nicole Magaña MD, 20 mg at 01/29/202110 ??? Benzocaine-Menthol (CEPACOL) 1 lozenge, 1 lozenge, Oral, TID PRN, Nicole Magaña MD, 1 lozenge at 01/25/20 0758 ??? bisacodyl (DULCOLAX) suppository 10 mg, 10 mg, Rectal, Daily PRN, Nicole Magaña MD ??? dilTIAZem CD (CARDIZEM CD) 24 hr capsule 120 mg, 120 mg, Oral, Once a day, Carmen Blackman MD, 120 mg at 01/29/20904 ??? diphenhydrAMINE (BENADRYL) tablet 25 mg, 25 mg, Oral, Q6H PRN, Nicole Magaña MD ??? docusate sodium (COLACE) capsule 100 mg, 100 mg, Oral, BID, Nicole Magaña MD, 100 mg at 01/29/202111 ??? famotidine (PEPCID) tablet 20 mg, 20 mg, Oral, Q48H, Nicole Magaña MD, 20 mg at 01/29/20904 ??? furosemide (LASIX) tablet 80 mg, 80 mg, Oral, BID AC, Carmen Blackman MD, 80 mg at 01/29/201818 ??? heparin (porcine) injection 1,000 Units, 1,000 Units, Intravenous, TThSat w/ Dialysis, Carmen Blackman MD, 1,000 Units at 01/29/20 1405 ??? heparin (porcine) injection 4,300 Units, 4,300 Units, Intracatheter, Once per day on Fri Sat, Carmen Blackman MD, 4,300 Units at 01/29/20 1518 ??? HYDROcodone-acetaminophen (NORCO) 5-325 MG per tablet 1 tablet, 1 tablet, Oral, Q6H PRN, 1 tablet at 01/25/20 1226 OR HYDROcodone-acetaminophen (LORCET PLUS) 10-325 MG per tablet 1 tablet, 1 tablet, Oral, Q6H PRN, Nicole Magaña MD, 1 tablet at 01/22/20 1832 ??? ondansetron ODT (ZOFRAN-ODT) disintegrating tablet 4 mg, 4 mg, Oral, Q6H PRN, Nicole Magaña MD ??? polyethylene glycol (MIRALAX) packet 17 g, 17 g, Oral, Once a day, Nicole Magaña MD, 17 g at 01/29/20 09 ??? rOPINIRole (REQUIP) tablet 0.5 mg, 0.5 mg, Oral, Nightly, Nicole Magaña MD, 0.5 mg at 01/29/202111 ??? sevelamer carbonate (RENVELA) tablet 800 mg, 800 mg, Oral, TID with meals, Nicole Magaña MD, 800 mg at 01/29/201818 ??? sodium chloride 0.9 % infusion 0-500 mL, 0-500 mL, Intravenous (Continuous Infusion), PRN During Dialysis, Carmen Blackman MD, 500 mL at 01/29/20 1522 ??? sodium chloride 0.9 % infusion 200 mL, 200 mL, Intravenous (Continuous Infusion), Once, Carmen Curtis MD ??? tamsulosin (FLOMAX) 24 hr capsule 0.4 mg, 0.4 mg, Oral, Nightly, Nicole Magaña MD, 0.4 mg at 01/29/202111 Social History reports that he has quit smoking. He does not have any smokeless tobacco history on file. Alcohol use questions deferred to the physician. Denies smoking, alcohol or illicit drugs currently Family History No family history on file. No known history of thromboembolism Physical Exam Vital Signs: Temp: [96.5 ??F (35.8 ??C)-97.8 ??F (36.6 ??C)] 97.7 ??F (36.5 ??C) Pulse: [54-81] 76 Resp: [16-18] 18 BP: (94-144)/(44-72) 132/52 I/O Intake/Output Summary (Last 24 hours) at 01/29/20202214 Last data filed at 01/29/2020 1809 Gross per 24 hour Intake -- Output 2000 ml Net -2000 ml Weights (last 3 days) None WEIGHTS 133 lb 6.4 oz (60.5 kg) General appearance: awake, alert, cooperative, no distress, MILDLY Confused HEENT: Normocephalic, No icterus, No oral lesions, Oral and nasal mucosa moist Neck: Supple, no lymphadenopathy Eyes: EOMI, Conjunctiva normal, No discharge Cardiovascular: s1-s2 audible, Normal heart rate, Normal rhythm, No murmurs, No rubs, No gallops Respiratory: Normal breath sounds, No respiratory distress, No wheezing, No rhonchi, No rales, No chest tenderness. GI: Bowel sounds normal, Soft, No tenderness, No rebound or guarding, No masses. Abdomen: soft without mass, non-tender, with normal bowel sounds, Extremities: no clubbing, cyanosis or edema, no calf tenderness Musculoskeletal:no swelling of joints or redness, FROM otherjoints Psychologic: Mood and affect appropriate, no suicidal ideation. Skin: No rash, swelling or erythema identified . 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 Please see height, weight, and BP reported elsewhere as part of this encounter Labs CBC with Differential: Lab Results Component Value Date WBC 4.5 01/27/2020 HGB 7.8 (L) 01/27/2020 HCT 24.5 (L) 01/27/2020 PLT 289 01/27/2020 MCV 104.7 (H) 01/27/2020 MCH 33.3 01/27/2020 MCHC 31.8 01/27/2020 RDW 12.2 01/27/2020 [ BMP: Lab Results Component Value Date NA 133 (L) 01/27/2020 K 4.9 01/27/2020 CL 96 (L) 01/27/2020 CO2 27 01/27/2020 BUN 24 01/27/2020 CREATININE 6.28 (H) 01/27/2020 GLUCOSE 87 01/27/2020 CALCIUM 8.7 01/27/2020 ANIONGAP 10 01/27/2020 MG/PHOS: No results found for: MG, PHOS CKMB: No components found for: CKMB;2 PT/INR: No results found for: LABPROT, INR CMP: Lab Results Component Value Date NA 133 (L) 01/27/2020 K 4.9 01/27/2020 CL 96 (L) 01/27/2020 CO2 27 01/27/2020 BUN 24 01/27/2020 CREATININE 6.28 (H) 01/27/2020 GLUCOSE 87 01/27/2020 CALCIUM 8.7 01/27/2020 ANIONGAP 10 01/27/2020 LFT's: No results found for: ALB, PROT Ionized Calcium: No components found for: IONCA ABG: No results found for: PHART, IQU3OLZ, PO2ART, EQA6GDE, BEART, [id number] HgBA1c: No results found for: HGBA1C Lipid Panel: No results found for: CHOL, TRIG, HDL TSH: No results found for: TSH IMAGING STUDIES & OTHER STUDIES Assessment and plan Advanced left hip arthritis S/p left hip arthroplasty F/u incision - incision remains well approximated and intact after removal of lyric -continue pain control with oral medication - continue PT/OT ESRD HD Consult renal follow up with [facility]er floor MD Carmen Blackman 01/21 CMP on Friday Chronic fluid overload Despite dialysis On lasix (01/21 BUN29; creatinine 4.52) - continue hemodialysis treatments - BNP 83, will contact nephrology Hypertension BP low on, diltiazem, lasix DC lisinopril BP improved now Dyslipidemia Lipitor Gout Allopurinol F/U Diabetes mellitus Diet??controlled Accu, SSI Atrial fibrillation Eliquis for atrial fibrillation Not on rate control F/U daily Hypotension (01/22) NS 250 ml x 1 now. Macrocytic Anemia - related to chronic renal disease - Iron levels low - may need iron IV - nephrology following Dementia Continue aricept Restless leg requip HLD Statin GI Prophylaxis: Famotidine DVT Prophylaxis: Apixaban Full Resuscitation Electronically signed by: MISTY HATHAWAY MD, 01/29/2020 10:15 PM CDT CC: No primary care provider on file. * Sarika Cruz RN - 01/29/2020 5:26 PM CDT Orders verified with Dr. Blackman and entered into [facility]. tx initiated 1405, access patent with good blood flow, VSS, NAD. Medications given during dialysis: Venofer 200 mg, Epo 6,000 units, Heparin 1,000units (bolus given at the start of treatment). Patient tolerating treatment well. Tx completed 1808. Report given to primary RN Loree Valle. 2 L fluid removed. * Carmen Blackman MD - 01/29/2020 4:17 PM CDT Nephrology Progress Note Ferdinand Rasmussen [id number] Subjective: Patient seen and examined in dialysis, denies fever, chills, chest pain, sob, cough, changes in appetite, N/V, diarrhea, abdominal pain, less left hip pain Objective: Vital signs: Vitals: 01/29/20 1800 01/29/20 1809 01/29/20 1814 01/29/20 2100 BP: 94/48 142/63 127/57 132/52 Pulse: 81 74 75 76 Resp: 16 18 Temp: 96.5 ??F (35.8 ??C) 97.7 ??F (36.5 ??C) TempSrc: Axillary Oral SpO2: 100% Weight: Height: Intake/Output Summary (Last 24 hours) at 01/30/2020 0119 Last data filed at 01/29/2020 1809 Gross per 24 hour Intake -- Output 2000 ml Net -2000 ml Intake/Output last 3 shifts: I/O last 3 completed shifts: In: 600 [P.O.:600] Out: 2200 [Other:2000] Intake/Output this shift: No intake/output data recorded. Weight: Wt Readings from Last 3 Encounters: 01/23/20 133 lb 6.4 oz (60.5 kg) 05/27/19 136 lb (61.7 kg) Medications: Scheduled/Continuous Medications Scheduled Medication Ordered Dose/Rate, Route, Frequency Last Action allopurinol (ZYLOPRIM) tablet 100 mg 100 mg, PO, Nightly Given, 100 mg at 01/28 2111 Apixaban (ELIQUIS) tablet 2.5 mg 2.5 mg, PO, BID Given, 2.5 mg at 01/28 2111 atorvastatin (LIPITOR) tablet 20 mg 20 mg, PO, Nightly Given, 20 mg at 01/28 2111 dilTIAZem CD (CARDIZEM CD) 24 hr capsule 120 mg 120 mg, PO, Once a day Given, 120 mg at 01/28 905 docusate sodium (COLACE) capsule 100 mg 100 mg, PO, BID Given, 100 mg at 01/29 2112 famotidine (PEPCID) tablet 20 mg 20 mg, PO, Q48H Given, 20 mg at 01/28 905 furosemide (LASIX) tablet 80 mg 80 mg, PO, BID AC Given, 80 mg at 01/28 1819 heparin (porcine) injection 1,000 Units 1,000 Units, IV, TThSat w/ Dialysis Given, 1,000 Units at 01/28 1405 heparin (porcine) injection 4,300 Units 4,300 Units, IK, After Dialysis Cust Given, 4,300 Units at 01/28 1518 polyethylene glycol (MIRALAX) packet 17 g 17 g, PO, Once a day Given, 17 g at 01/28 905 rOPINIRole (REQUIP) tablet 0.5 mg 0.5 mg, PO, Nightly Given, 0.5 mg at 01/29 2112 sevelamer carbonate (RENVELA) tablet 800 mg 800 mg, PO, TID with meals Given, 800 mg at 01/28 1819 sodium chloride 0.9 % infusion 200 mL 200 mL, CI, Once Ordered tamsulosin (FLOMAX) 24 hr capsule 0.4 mg 0.4 mg, PO, Nightly Given, 0.4 mg at 01/29 2112 Current Facility-Administered Medications: ??? acetaminophen (TYLENOL) tablet 650 mg, 650 mg, Oral, Q6H PRN, Nicole Magaña MD, 650 mg at 01/22/202144 ??? allopurinol (ZYLOPRIM) tablet 100 mg, 100 mg, Oral, Nightly, Mike Zamora MD, 100 mg at 01/29/202110 ??? Apixaban (ELIQUIS) tablet 2.5 mg, 2.5 mg, Oral, BID, Nicole Magaña MD, 2.5 mg at 01/29/202110 ??? atorvastatin (LIPITOR) tablet 20 mg, 20 mg, Oral, Nightly, Nicole Magaña MD, 20 mg at 01/29/202110 ??? Benzocaine-Menthol (CEPACOL) 1 lozenge, 1 lozenge, Oral, TID PRN, Nicole Magaña MD, 1 lozenge at 01/25/20 0758 ??? bisacodyl (DULCOLAX) suppository 10 mg, 10 mg, Rectal, Daily PRN, Nicole Magaña MD ??? dilTIAZem CD (CARDIZEM CD) 24 hr capsule 120 mg, 120 mg, Oral, Once a day, Carmen Blackman MD, 120 mg at 01/29/20904 ??? diphenhydrAMINE (BENADRYL) tablet 25 mg, 25 mg, Oral, Q6H PRN, Nicole Magaña MD ??? docusate sodium (COLACE) capsule 100 mg, 100 mg, Oral, BID, Nicole Magaña MD, 100 mg at 01/29/202111 ??? famotidine (PEPCID) tablet 20 mg, 20 mg, Oral, Q48H, Nicole Magaña MD, 20 mg at 01/29/20904 ??? furosemide (LASIX) tablet 80 mg, 80 mg, Oral, BID AC, Carmen Blackman MD, 80 mg at 01/29/20 181 ??? heparin (porcine) injection 1,000 Units, 1,000 Units, Intravenous, TThSat w/ Dialysis, Carmen Blackman MD, 1,000 Units at 01/29/20 1405 ??? heparin (porcine) injection 4,300 Units, 4,300 Units, Intracatheter, Once per day on Fri Sat, Carmen Blackman MD, 4,300 Units at 01/29/20 1518 ??? HYDROcodone-acetaminophen (NORCO) 5-325 MG per tablet 1 tablet, 1 tablet, Oral, Q6H PRN, 1 tablet at 01/25/20 1226 OR HYDROcodone-acetaminophen (LORCET PLUS) 10-325 MG per tablet 1 tablet, 1 tablet, Oral, Q6H PRN, Nicole Magaña MD, 1 tablet at 01/22/20 1832 ??? ondansetron ODT (ZOFRAN-ODT) disintegrating tablet 4 mg, 4 mg, Oral, Q6H PRN, Nicole Magaña MD ??? polyethylene glycol (MIRALAX) packet 17 g, 17 g, Oral, Once a day, Nicole Magaña MD, 17 g at 01/29/20 09 ??? rOPINIRole (REQUIP) tablet 0.5 mg, 0.5 mg, Oral, Nightly, Nicole Magaña MD, 0.5 mg at 01/29/202111 ??? sevelamer carbonate (RENVELA) tablet 800 mg, 800 mg, Oral, TID with meals, Nicole Magaña MD, 800 mg at 01/29/20 181 ??? sodium chloride 0.9 % infusion 0-500 mL, 0-500 mL, Intravenous (Continuous Infusion), PRN During Dialysis, Carmen Blackman MD, 500 mL at 01/29/20 152 ??? sodium chloride 0.9 % infusion 200 mL, 200 mL, Intravenous (Continuous Infusion), Once, Carmen Curtis MD ??? tamsulosin (FLOMAX) 24 hr capsule 0.4 mg, 0.4 mg, Oral, Nightly, Nicole Magaña MD, 0.4 mg at 01/29/202111 ??? acetaminophen ??? Benzocaine-Menthol ??? bisacodyl ??? diphenhydrAMINE ??? HYDROcodone-acetaminophen OR HYDROcodone-acetaminophen ??? ondansetron ODT ??? sodium chloride Physical Exam: General: awake and alert. In NAD Lungs: CTA B/L Heart: RRR, S1 and S2 without rubs Abdomen: Soft, NT/ND, + BS Ext: Without edema Labs: Recent Labs Lab Units 01/27/2044401/25/20121701/24/20 0333 SODIUM MMOL/L BLOOD mmol/L 133* -- 136 POTASSIUM MMOL/L BLOOD mmol/L 4.9 5.3* 4.8 CHLORIDE mmol/L 96* -- 98 CO2 mmol/L 27 -- 28 BUN MG/DL BLOOD mg/dL 24 -- 32* CREATININE mg/dL 6.28* -- 5.84* GLUCOSE MG/DL BLOOD mg/dL 87 -- 96 CALCIUM MG/DL BLOOD mg/dL 8.7 -- 8.8 ANION GAP BLOOD mmol/L 10 -- 10 Recent Labs Lab Units 01/27/2044401/25/20121701/24/20 0333 SODIUM MMOL/L BLOOD mmol/L 133* -- 136 POTASSIUM MMOL/L BLOOD mmol/L 4.9 5.3* 4.8 CHLORIDE mmol/L 96* -- 98 CO2 mmol/L 27 -- 28 BUN MG/DL BLOOD mg/dL 24 -- 32* CREATININE mg/dL 6.28* -- 5.84* GLUCOSE MG/DL BLOOD mg/dL 87 -- 96 CALCIUM MG/DL BLOOD mg/dL 8.7 -- 8.8 Recent Labs Lab Units 01/27/2044401/25/20121701/24/20 0333 SODIUM MMOL/L BLOOD mmol/L 133* -- 136 POTASSIUM MMOL/L BLOOD mmol/L 4.9 5.3* 4.8 CHLORIDE mmol/L 96* -- 98 CO2 mmol/L 27 -- 28 BUN MG/DL BLOOD mg/dL 24 -- 32* CREATININE mg/dL 6.28* -- 5.84* GLUCOSE MG/DL BLOOD mg/dL 87 -- 96 CALCIUM MG/DL BLOOD mg/dL 8.7 -- 8.8 Recent Labs Lab Units 01/27/2044401/24/20 0333 WBC X(10)9/L BLOOD x10E9/L 4.5 6.4 HGB GM/DL BLOOD gm/dL 7.8* 7.8* HCT % BLOOD % 24.5* 24.9* PLT CT X(10)9/L BLOOD x10E9/L 289 283 Assessment/ Plan: ESRD, on IHD TTS, HTN, BP is soft now, BP medications adjusted Anemia due to CKD, with iron deficiency, iron and Epogen started. Advanced arthritis left hip underwent left hip arthoplasty History of recurrent volume overload, now stable on UF History of recurrent hyperkalemia, due to ESRD DM Discussed with NEENA Fletcher DAVID D, MD Office [phone] * Tara Alberts RD - 01/29/2020 10:02 AM CDT Pt is eating 5-75% of meals, says he is getting enough food and refuses anything additional. Continue same diet order * Mike Zamora MD - 01/28/2020 4:03 PM CDT REHAB INTERDISCIPLINARY PROGRESS NOTE Patient's Primary Care Physician: No primary care provider on file. Name: Ferdinand Rasmussen Age: 74 y.o. Chief Complaint/History of Present Illness Patient in NAD. History of Present Illness Obtained from family/patient/staff. PFSHX: PMH: I have reviewed and there is no change Family: I have reviewed and there is no change Social: I have reviewed and there is no change No Known Allergies REVIEW OF SYSTEMS Odynophagia resolved.. EXAMINATION Vitals: 01/27/20 1735 01/27/20 1751 01/27/20 2008 01/28/20 0730 BP: 121/56 113/62 106/60 123/54 Pulse: 71 70 79 67 Resp: 18 16 16 Temp: 98 ??F (36.7 ??C) 98.7 ??F (37.1 ??C) 98 ??F (36.7 ??C) TempSrc: Oral Oral Oral SpO2: 100% 100% 97% Weight: Height: PHYSICAL EXAMINATION: GENERAL: Reveals a slender, alert, elderly gentleman, who is oriented x3. HEENT: Reveals a normocephalic, atraumatic head. He is edentulous. No noted tongue or buccal lesions. Noted placques on pharyngeal wall. No palpable cervical lymphadenopathy. Left submental non-tender chronic appearing nodule palpated. CARDIAC: Reveals a regular rate and rhythm. LUNGS: Clear to auscultation, although inspiratory effort is markedly diminished. CHEST: Tunneled catheter at right chest. ABDOMEN: Soft. Bowel sounds are present. : Unremarkable. EXTREMITIES: Reveals a well-healing right lateral thigh incision with lyric removed and steristrips placed.. Homans are negative bilaterally. SKIN: Examination of the skin reveals no breakdown over the sacrum, occiput, or heels. NEUROLOGIC: Cranial nerves 2 through 12 appear to be intact. Motor examination reveals no pronator drift. Manual muscle testing reveals grade 4- strength of the upper extremities and at the left leg,he has grade 4- strength. At the right lower extremity, formal manual muscle testing was deferred proximally, but distally, he does appear to have grade 4- strength at the knee and ankle. Sensory testing yielded some equivocal responses distal to the ankles bilaterally, but overall, he does appear to have preserved pinprick on either side of the face, trunk, and extremities. Deep tendon reflexes are diminished throughout. No ankle clonus was elicited. Cerebellar examination was unremarkable. DATA/LAB/RADIOLOGY Meds: Current Facility-Administered Medications Medication Dose Route Frequency Provider Last Rate Last Dose ??? acetaminophen (TYLENOL) tablet 650 mg 650 mg Oral Q6H PRN Nicole Magaña MD 650 mg at 01/22/202144 ??? allopurinol (ZYLOPRIM) tablet 100 mg 100 mg Oral Nightly Mike Zamora MD 100 mg at 01/27/202148 ??? Apixaban (ELIQUIS) tablet 2.5 mg 2.5 mg Oral BID Nicole Magaña MD 2.5 mg at 01/28/20 0830 ??? atorvastatin (LIPITOR) tablet 20 mg 20 mg Oral Nightly Nicole Magaña MD 20 mg at 01/27/202148 ??? Benzocaine-Menthol (CEPACOL) 1 lozenge 1 lozenge Oral TID PRN Nicole Magaña MD 1 lozenge at 01/25/20 0758 ??? bisacodyl (DULCOLAX) suppository 10 mg 10 mg Rectal Daily PRN Nicole Mgaaña MD ??? dilTIAZem CD (CARDIZEM CD) 24 hr capsule 120 mg 120 mg Oral Once a day Carmen Blackman MD 120 mg at 01/28/20 08 ??? diphenhydrAMINE (BENADRYL) tablet 25 mg 25 mg Oral Q6H PRN Nicole Magaña MD ??? docusate sodium (COLACE) capsule 100 mg 100 mg Oral BID Nicole Magaña MD 100 mg at 01/28/20 0829 ??? famotidine (PEPCID) tablet 20 mg 20 mg Oral Q48H Nicole Magaña MD 20 mg at 01/27/20 0823 ??? fluconazole (DIFLUCAN) tablet 200 mg 200 mg Oral Once a day Mike Zamora MD 200 mg at 01/28/20 0830 ??? furosemide (LASIX) tablet 80 mg 80 mg Oral BID AC Carmen Blackman MD 80 mg at 01/28/20 08 ??? heparin (porcine) injection 1,000 Units 1,000 Units Intravenous TThSat w/ Dialysis Carmen Blackman MD 1,000 Units at 01/27/201657 ??? heparin (porcine) injection 4,300 Units 4,300 Units Intracatheter Once per day on Fri Sat Carmen Blackman MD 4,300 Units at 01/27/20 165 ??? HYDROcodone-acetaminophen (NORCO) 5-325 MG per tablet 1 tablet 1 tablet Oral Q6H PRN Nicole Magaña MD 1 tablet at 01/25/20 1226 Or ??? HYDROcodone-acetaminophen (LORCET PLUS) 10-325 MG per tablet 1 tablet 1 tablet Oral Q6H PRN Nicole Magaña MD 1 tablet at 01/22/20 1832 ??? ondansetron ODT (ZOFRAN-ODT) disintegrating tablet 4 mg 4 mg Oral Q6H PRN Nicole Magaña MD ??? polyethylene glycol (MIRALAX) packet 17 g 17 g Oral Once a day Nicole Magaña MD 17 g at 01/28/20 0828 ??? rOPINIRole (REQUIP) tablet 0.5 mg 0.5 mg Oral Nightly Nicole Magaña MD 0.5 mg at 01/27/202148 ??? sevelamer carbonate (RENVELA) tablet 800 mg 800 mg Oral TID with meals Nicole Magaña MD 800 mg at 01/28/20 1306 ??? sodium chloride 0.9 % infusion 0-500 mL 0-500 mL Intravenous (Continuous Infusion) PRN During Dialysis Carmen Blackman MD ??? sodium chloride 0.9 % infusion 200 mL 200 mL Intravenous (Continuous Infusion) Once Carmen Blackman MD ??? tamsulosin (FLOMAX) 24 hr capsule 0.4 mg 0.4 mg Oral Nightly Nicole Magaña MD 0.4 mg at 01/27/20 2154 Labs: Lab Results Component Value Date WBC 4.5 01/27/2020 HGB 7.8 (L) 01/27/2020 HCT 24.5 (L) 01/27/2020 MCV 104.7 (H) 01/27/2020 PLT 289 01/27/2020 Lab Results Component Value Date GLUCOSE 87 01/27/2020 CALCIUM 8.7 01/27/2020 NA 133 (L) 01/27/2020 K 4.9 01/27/2020 CO2 27 01/27/2020 CL 96 (L) 01/27/2020 BUN 24 01/27/2020 CREATININE 6.28 (H) 01/27/2020 REVIEW OF FUNCTIONAL STATUS Mod assist for standing IADL tasks. Standing tolerance up to 8 minutes. MEDICAL DECISION MAKING/PLAN Problem List: 1. End-stage osteoarthritis of the left hip, status post left total hip arthroplasty 01/12/2020. Discussed wound appearance with Wound nurse. No signs of dehiscence. Patient reports good pain control. 2. End-stage renal disease, on hemodialysis. Nephrology follow up and recommendations noted and appreciated. Adjusting Lasix per Hospitalist. 3. Paroxysmal atrial fibrillation. [place], cardizem. 4. Dementia. 5. Anemia. 6. Previous history of stroke. 7. Dyslipidemia. Lipitor. 8. Hypertension. BP in acceptable range. 9. Restless legs syndrome. Requip. 10. Bladder outlet obstruction related to prostatic hypertrophy. 11. History of gout. Zyloprim. No noted acute joint flares. 12. 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 Modified diet requested. Monitoring for clinical signs of aspiration. 13. Bladder/bowel: Continent. Last BM 01/25. Signed: MIKE ZAMORA MD 01/28/2020 4:03 PM CDT * Mor Tala, NEENA - 01/28/2020 10:07 AM CDT Progress notes CHIEF COMPLAINT Active Problems: Osteoarthritis History of Present illness The patient is a 74 y.o. y/o male with history of DM, HTN, ESRD on HD, Dementia and placement rightdeep brachial vein arteriovenous fistula 10/20/2019 and with advanced arthritis left hip underwent left hip arthoplasty by Dr. Agudelo Subjective: (01/21) Patient seen in during PT time and after in his room Patient mildly confused ,not in distress Patient stated had good night sleep , no pain. Denies dizziness, BP dropping to 78/47 mm/Hg , [id number] MIN last Creatinine from 01/20 was 4.52 with BUN 29 ; Hb 8.3,Plt 226 . Left hip lyric on no drainage no discharge 01/22 Patient seen in during PT time and after in his room .Patient mildly confused ,not in distress Patient stated had good night sleep , no pain. Denies dizziness, BP 78/47 and now 100/54 mm/Hg , last Creatinine from 01/20.Yesterday had HD.was 4.52 with BUN 29 ; Hb 8.3,Plt 226 . Left hip lyric on no drainage no discharge 01/23 Patient seen and evaluated on daily rounds. No overnight events reported. Patient has been participating with therapy and is doing well. Pt seen today sitting up in wheelchair. Pt denies pain at thistime, well controlled with current medications. Slept well and appetite good. Last BM 01/23/2020, noissues. Voiding well. Patient denies any chest pain, palpitations, shortness of breath, cough, abdominal pain, nausea and vomiting, or constipation. Pt reports trouble with swallowing food regular food, so his diet has been modified by the dietitian, but remains on thin liquids. Pt also complained of a sore throat so lozenges were ordered Afebrile 98 BP 133/67 HR 69 Labs reviewed. Reviewed care with patient and RN. No other needs or concerns expressed at this time. 01/24 Patient seen and evaluated on daily rounds. No overnight events reported. Patient has been participating with therapy and is doing well. Pt seen today laying in bed, during dialysis. Pt denies pain at this time, well controlled with current medications. Slept well and appetite good. Last BM 01/22, no issues. Voiding well. Patient denies any chest pain, palpitations, shortness of breath, cough, abdominal pain, nausea and vomiting, or constipation. Afebrile 98.6 BP 99/64 HR 84 Labs reviewed. Reviewed care with patient and RN. No other needs or concerns expressed at this time. 01/25 Patient doing ok No new issues to report Doing well 01/27/20 Patient seen and evaluated on daily rounds. No over night events reported. Patient denies any fever, chills, chest pain, shortness of breath, abdominal pain, nausea or vomiting. Patient reports doingokay with no issues of bowel or bladder. No pain reported when seen 01/28/20 Patient seen and evaluated on daily rounds. No over night events reported. Patient denies any fever, chills, chest pain, shortness of breath, abdominal pain, nausea or vomiting. Discussed with waxer floor Dr. Blackman about Lasix dosing, patient will be continued on Lasix to prevent hypovolemia post dialysis since he is still able to make urine. Also will be started on IV iron with dialysis and Epogen Review of Systems General: no weight loss, no fever, no chills, no anorexia Skin: no rash Eyes: no blurry vision Ears/Nose/Throat: no nasal congestion, no sore throat Respiratory: no cough, no dyspnea, no wheezing Cardiovascular: no chest pain, no ankle swelling Gastrointestinal: no nausea, no vomiting, no diarrhea, no constipation, no abdominal pain. No melena, no bright red blood per rectum Genitourinary: no dysuria, no hematuria Musculoskeletal: no joint pain, no myalgia, + muscle weakness Neurologic: no seizures, no tremors, no fainting, no focal weakness , tingling or numbness Hematologic/Lymphatic: no abnormal bleeding, no abnormal bruising Endocrine: no heat or cold intolerance, no polydipsia, no polyuria Psychiatric: no anxiety, no depression Allergy/Immunology: no seasonal allergies, no joint stiffness in morning Past Medical History Past Medical History: Diagnosis Date ??? Diabetes mellitus ??? Diabetes mellitus 05/12/2019 ??? End stage renal failure on dialysis 05/12/2019 New to dialysis ??? Hypertension ??? Other abnormal clinical findings ??? Seroma 05/12/2019 Proximal Left thigh 60 x 23 x39 mm by US Past Surgical History No past surgical history on file. Allergies No Known Allergies Home Medications Prior to Admission medications Medication Sig Start Date End Date Taking? Authorizing Provider acetaminophen (TYLENOL) 325 MG tablet 1 tablet (325 mg total) by PO/Per Tube route every 6 (six) hours as needed for mild pain (1 - 3) or Temp > or equal to 101F (38.3C). 05/28/19 Florencia Moulton MD allopurinol (ZYLOPRIM) 100 MG tablet Take 1 tablet (100 mg total) by mouth daily. 05/28/19 Florencia Moulton MD atorvastatin (LIPITOR) 20 MG tablet Take 1 tablet (20 mg total) by mouth daily. 05/28/19 Florencia Moulton MD Diclofenac Sodium (VOLTAREN) 1 % gel Apply 2 g topically 2 (two) times a day. 05/28/19 Florencia Moulton MD docusate sodium (COLACE) 100 MG capsule Take 1 capsule (100 mg total) by mouth daily. 05/28/19 MD Nico donepezil (ARICEPT) 10 MG tablet Take 1 tablet (10 mg total) by mouth nightly. 05/28/19 Florencia Moulton MD folic acid (FOLVITE) 1 MG tablet Take 1 tablet (1 mg total) by mouth daily. 05/28/19 Florencia Moulton MD furosemide (LASIX) 80 MG tablet Take 1 tablet (80 mg total) by mouth 2 (two) times a day diuretic. 05/28/19 Florencia Moulton MD lidocaine (LIDOCARE) 4 % patch patch Place 2 patches on the skin daily. 05/28/19 Florencia Moulton MD oxyCODONE-acetaminophen (PERCOCET) 5-325 MG per tablet Take 1 tablet by mouth every 6 (six) hours as needed for moderate pain (4 - 6). Max Daily Amount: 4 tablets 05/28/19 Florencia Moulton MD rOPINIRole (REQUIP) 0.5 MG tablet Take 1 tablet (0.5 mg total) by mouth Three times per week with dialysis. 05/29/19 Florencia Moulton MD tamsulosin (FLOMAX) 0.4 MG capsule Take 1 capsule (0.4 mg total) by mouth nightly. 05/28/19 Florencia Moulton MD CURRENT Medications Current Facility-Administered Medications: ??? acetaminophen (TYLENOL) tablet 650 mg, 650 mg, Oral, Q6H PRN, Nicole Magaña MD, 650 mg at 01/22/202144 ??? allopurinol (ZYLOPRIM) tablet 100 mg, 100 mg, Oral, Nightly, Mike Zamora MD, 100 mg at 01/27/202148 ??? Apixaban (ELIQUIS) tablet 2.5 mg, 2.5 mg, Oral, BID, Nicole Magaña MD, 2.5 mg at 01/28/20829 ??? atorvastatin (LIPITOR) tablet 20 mg, 20 mg, Oral, Nightly, Nicole Magaña MD, 20 mg at 01/27/202148 ??? Benzocaine-Menthol (CEPACOL) 1 lozenge, 1 lozenge, Oral, TID PRN, Nicole Magaña MD, 1 lozenge at 01/25/20 0758 ??? bisacodyl (DULCOLAX) suppository 10 mg, 10 mg, Rectal, Daily PRN, Nicole Magaña MD ??? dilTIAZem CD (CARDIZEM CD) 24 hr capsule 120 mg, 120 mg, Oral, Once a day, Carmen Blackman MD, 120 mg at 01/28/20 0828 ??? diphenhydrAMINE (BENADRYL) tablet 25 mg, 25 mg, Oral, Q6H PRN, Nicole Magaña MD ??? docusate sodium (COLACE) capsule 100 mg, 100 mg, Oral, BID, Nicole Magaña MD, 100 mg at 01/28/20 0829 ??? famotidine (PEPCID) tablet 20 mg, 20 mg, Oral, Q48H, Nicole Magaña MD, 20 mg at 01/27/20 0823 ??? fluconazole (DIFLUCAN) tablet 200 mg, 200 mg, Oral, Once a day, Mike Zamora MD, 200 mg at 01/28/2030 ??? furosemide (LASIX) tablet 80 mg, 80 mg, Oral, BID AC, Carmen Blackman MD, 80 mg at 01/28/20 0829 ??? heparin (porcine) injection 1,000 Units, 1,000 Units, Intravenous, TThSat w/ Dialysis, Carmen Blackman MD, 1,000 Units at 01/27/20 1658 ??? heparin (porcine) injection 4,300 Units, 4,300 Units, Intracatheter, Once per day on Fri Sat, Carmen Blackman MD, 4,300 Units at 01/27/20 165 ??? HYDROcodone-acetaminophen (NORCO) 5-325 MG per tablet 1 tablet, 1 tablet, Oral, Q6H PRN, 1 tablet at 01/25/20 1226 OR HYDROcodone-acetaminophen (LORCET PLUS) 10-325 MG per tablet 1 tablet, 1 tablet, Oral, Q6H PRN, Nicole Magaña MD, 1 tablet at 01/22/20 1832 ??? ondansetron ODT (ZOFRAN-ODT) disintegrating tablet 4 mg, 4 mg, Oral, Q6H PRN, Nicole Magaña MD ??? polyethylene glycol (MIRALAX) packet 17 g, 17 g, Oral, Once a day, Nicole Magaña MD, 17 g at 01/28/20827 ??? rOPINIRole (REQUIP) tablet 0.5 mg, 0.5 mg, Oral, Nightly, Nicole Magaña MD, 0.5 mg at 01/27/209 ??? sevelamer carbonate (RENVELA) tablet 800 mg, 800 mg, Oral, TID with meals, Nicole Magaña MD, 800 mg at 01/28/20 0828 ??? sodium chloride 0.9 % infusion 0-500 mL, 0-500 mL, Intravenous (Continuous Infusion), PRN During Dialysis, Carmen Blackman MD ??? sodium chloride 0.9 % infusion 200 mL, 200 mL, Intravenous (Continuous Infusion), Once, Carmen Curtis MD ??? tamsulosin (FLOMAX) 24 hr capsule 0.4 mg, 0.4 mg, Oral, Nightly, Nicole Magaña MD, 0.4 mg at 10/01/20 2154 Social History reports that he has quit smoking. He does not have any smokeless tobacco history on file. Alcohol use questions deferred to the physician. Denies smoking, alcohol or illicit drugs currently Family History No family history on file. No known history of thromboembolism Physical Exam Vital Signs: Temp: [98 ??F (36.7 ??C)-98.7 ??F (37.1 ??C)] 98.7 ??F (37.1 ??C) Pulse: [65-84] 79 Resp: [16-18] 16 BP: (106-180)/(56-66) 106/60 I/O Intake/Output Summary (Last 24 hours) at 01/28/2020 1007 Last data filed at 01/27/2020 2205 Gross per 24 hour Intake 480 ml Output 2550 ml Net -2070 ml Weights (last 3 days) None WEIGHTS 133 lb 6.4 oz (60.5 kg) General appearance: awake, alert, cooperative, no distress, MILDLY Confused HEENT: Normocephalic, No icterus, No oral lesions, Oral and nasal mucosa moist Neck: Supple, no lymphadenopathy Eyes: EOMI, Conjunctiva normal, No discharge Cardiovascular: s1-s2 audible, Normal heart rate, Normal rhythm, No murmurs, No rubs, No gallops Respiratory: Normal breath sounds, No respiratory distress, No wheezing, No rhonchi, No rales, No chest tenderness. GI: Bowel sounds normal, Soft, No tenderness, No rebound or guarding, No masses. Abdomen: soft without mass, non-tender, with normal bowel sounds, Extremities: no clubbing, cyanosis or edema, no calf tenderness Musculoskeletal:no swelling of joints or redness, FROM otherjoints Psychologic: Mood and affect appropriate, no suicidal ideation. Skin: No rash, swelling or erythema identified . 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 Please see height, weight, and BP reported elsewhere as part of this encounter Labs CBC with Differential: Lab Results Component Value Date WBC 4.5 01/27/2020 HGB 7.8 (L) 01/27/2020 HCT 24.5 (L) 01/27/2020 PLT 289 01/27/2020 MCV 104.7 (H) 01/27/2020 MCH 33.3 01/27/2020 MCHC 31.8 01/27/2020 RDW 12.2 01/27/2020 [ BMP: Lab Results Component Value Date NA 133 (L) 01/27/2020 K 4.9 01/27/2020 CL 96 (L) 01/27/2020 CO2 27 01/27/2020 BUN 24 01/27/2020 CREATININE 6.28 (H) 01/27/2020 GLUCOSE 87 01/27/2020 CALCIUM 8.7 01/27/2020 ANIONGAP 10 01/27/2020 MG/PHOS: No results found for: MG, PHOS CKMB: No components found for: CKMB;2 PT/INR: No results found for: LABPROT, INR CMP: Lab Results Component Value Date NA 133 (L) 01/27/2020 K 4.9 01/27/2020 CL 96 (L) 01/27/2020 CO2 27 01/27/2020 BUN 24 01/27/2020 CREATININE 6.28 (H) 01/27/2020 GLUCOSE 87 01/27/2020 CALCIUM 8.7 01/27/2020 ANIONGAP 10 01/27/2020 LFT's: No results found for: ALB, PROT Ionized Calcium: No components found for: IONCA ABG: No results found for: PHART, IZM2MDO, PO2ART, RCB4EEZ, BEART, S4GDUEPA HgBA1c: No results found for: HGBA1C Lipid Panel: No results found for: CHOL, TRIG, HDL TSH: No results found for: TSH IMAGING STUDIES & OTHER STUDIES Assessment and plan Advanced left hip arthritis S/p left hip arthroplasty F/u incision - incision remains well approximated and intact after removal of lyric -continue pain control with oral medication - continue PT/OT ESRD HD Consult renal follow up with waxer floor MD Carmen Blackman 01/21 CMP on Friday Chronic fluid overload Despite dialysis On lasix (01/21 BUN29; creatinine 4.52) - continue hemodialysis treatments - BNP 83, will contact nephrology Hypertension BP low on, diltiazem, lasix DC lisinopril BP improved now Dyslipidemia Lipitor Gout Allopurinol F/U Diabetes mellitus Diet??controlled Accu, SSI Atrial fibrillation Eliquis for atrial fibrillation Not on rate control F/U daily Hypotension (01/22) NS 250 ml x 1 now. Macrocytic Anemia - related to chronic renal disease - Iron levels low - may need iron IV - nephrology following Dementia Continue aricept Restless leg requip HLD Statin GI Prophylaxis: Famotidine DVT Prophylaxis: Apixaban Full Resuscitation Electronically signed by: MOR ORDONEZ NP, 01/28/2020 10:07 AM CDT CC: No primary care provider on file. Cosigned by Misty Hathaway MD at 01/29/2020 9:19 AM CDT Associated attestation - Misty Hathaway MD - 01/29/2020 10:19 AM EDT The patient is being seen for follow-up of all current problems, BP, BS , HR, labs and strength. Follow up on pain, swallowing, bladder and bowel function. Strength improving, able to do therapy ok. I saw and evaluated the patient face to face in conjunction with the BISQUE WARE DIPPER and agree with the management and disposition of the patient. History also obtained from Nurse and staff about how the patient did overnight and during the day. I performed mario portions of the follow up, review of labs and radiology and evaluation. I agree with the subjective, physical exam and assessment and plan details as outlined in the note below. Discussed the mario medical decision making- both assessment and plan, rehabilitation goals and treatment plan with patient, BISQUE WARE DIPPER , nursing staff, kitman and the members of the team. * Carmen Blackman MD - 01/28/2020 5:16 AM CDT Nephrology Progress Note Ferdinand Rasmussen [id number] [phone] Subjective: Patient seen and examined, denies fever, chills, chest pain, sob, cough, changes in appetite, N/V, diarrhea, abdominal pain, less left hip pain Objective: Vital signs: Vitals: 01/27/20 1751 01/27/20200701/28/2072901/28/202121 BP: 113/62 106/60 123/54 126/60 Pulse: 70 79 67 68 Resp: 18 16 16 17 Temp: 98 ??F (36.7 ??C) 98.7 ??F (37.1 ??C) 98 ??F (36.7 ??C) 98 ??F (36.7 ??C) TempSrc: Oral Oral Oral Oral SpO2: 100% 100% 97% 100% Weight: Height: Intake/Output Summary (Last 24 hours) at 01/29/2020 0024 Last data filed at 01/28/2020 1810 Gross per 24 hour Intake 600 ml Output 200 ml Net 400 ml Intake/Output last 3 shifts: I/O last 3 completed shifts: In: 1320 [P.O.:1320] Out: 2750 [Other:1999] Intake/Output this shift: No intake/output data recorded. Weight: Wt Readings from Last 3 Encounters: 01/23/20 133 lb 6.4 oz (60.5 kg) 05/27/19 136 lb (61.7 kg) Medications: Scheduled/Continuous Medications Scheduled Medication Ordered Dose/Rate, Route, Frequency Last Action allopurinol (ZYLOPRIM) tablet 100 mg 100 mg, PO, Nightly Given, 100 mg at 01/27 2035 Apixaban (ELIQUIS) tablet 2.5 mg 2.5 mg, PO, BID Given, 2.5 mg at 01/27 2035 atorvastatin (LIPITOR) tablet 20 mg 20 mg, PO, Nightly Given, 20 mg at 01/27 2034 dilTIAZem CD (CARDIZEM CD) 24 hr capsule 120 mg 120 mg, PO, Once a day Given, 120 mg at 01/28 828 docusate sodium (COLACE) capsule 100 mg 100 mg, PO, BID Given, 100 mg at 01/27 2034 famotidine (PEPCID) tablet 20 mg 20 mg, PO, Q48H Given, 20 mg at 01/26 823 fluconazole (DIFLUCAN) tablet 200 mg 200 mg, PO, Once a day Given, 200 mg at 01/27 830 furosemide (LASIX) tablet 80 mg 80 mg, PO, BID AC Given, 80 mg at 01/27 829 heparin (porcine) injection 1,000 Units 1,000 Units, IV, TThSat w/ Dialysis Given, 1,000 Units at 01/26 1658 heparin (porcine) injection 4,300 Units 4,300 Units, IK, After Dialysis Cust Given, 4,300 Units at 01/26 1659 polyethylene glycol (MIRALAX) packet 17 g 17 g, PO, Once a day Given, 17 g at 01/28 828 rOPINIRole (REQUIP) tablet 0.5 mg 0.5 mg, PO, Nightly Given, 0.5 mg at 01/27 2034 sevelamer carbonate (RENVELA) tablet 800 mg 800 mg, PO, TID with meals Given, 800 mg at 01/27 1651 sodium chloride 0.9 % infusion 200 mL 200 mL, CI, Once Ordered tamsulosin (FLOMAX) 24 hr capsule 0.4 mg 0.4 mg, PO, Nightly Given, 0.4 mg at 01/27 2037 Current Facility-Administered Medications: ??? acetaminophen (TYLENOL) tablet 650 mg, 650 mg, Oral, Q6H PRN, Nicole Magaña MD, 650 mg at 01/22/202144 ??? allopurinol (ZYLOPRIM) tablet 100 mg, 100 mg, Oral, Nightly, Mike Zamora MD, 100 mg at 01/28/202034 ??? Apixaban (ELIQUIS) tablet 2.5 mg, 2.5 mg, Oral, BID, Nicole Magaña MD, 2.5 mg at 01/28/202034 ??? atorvastatin (LIPITOR) tablet 20 mg, 20 mg, Oral, Nightly, Nicole Magaña MD, 20 mg at 01/28/202033 ??? Benzocaine-Menthol (CEPACOL) 1 lozenge, 1 lozenge, Oral, TID PRN, Nicole Magaña MD, 1 lozenge at 01/25/20 0758 ??? bisacodyl (DULCOLAX) suppository 10 mg, 10 mg, Rectal, Daily PRN, Nicole Magaña MD ??? dilTIAZem CD (CARDIZEM CD) 24 hr capsule 120 mg, 120 mg, Oral, Once a day, Carmen Blackman MD, 120 mg at 01/28/20827 ??? diphenhydrAMINE (BENADRYL) tablet 25 mg, 25 mg, Oral, Q6H PRN, Nicole Magaña MD ??? docusate sodium (COLACE) capsule 100 mg, 100 mg, Oral, BID, Nicole Magaña MD, 100 mg at 01/28/202033 ??? famotidine (PEPCID) tablet 20 mg, 20 mg, Oral, Q48H, Nicole Magaña MD, 20 mg at 01/27/20822 ??? fluconazole (DIFLUCAN) tablet 200 mg, 200 mg, Oral, Once a day, Mike Zamora MD, 200 mg at 01/28/20829 ??? furosemide (LASIX) tablet 80 mg, 80 mg, Oral, BID AC, Carmen Blackman MD, 80 mg at 01/28/20828 ??? heparin (porcine) injection 1,000 Units, 1,000 Units, Intravenous, TThSat w/ Dialysis, Carmen Blackman MD, 1,000 Units at 01/27/201657 ??? heparin (porcine) injection 4,300 Units, 4,300 Units, Intracatheter, Once per day on Fri, Carmen Blackman MD, 4,300 Units at 01/27/209 ??? HYDROcodone-acetaminophen (NORCO) 5-325 MG per tablet 1 tablet, 1 tablet, Oral, Q6H PRN, 1 tablet at 01/25/20 1226 OR HYDROcodone-acetaminophen (LORCET PLUS) 10-325 MG per tablet 1 tablet, 1 tablet, Oral, Q6H PRN, Nicole Magaña MD, 1 tablet at 01/22/20 1832 ??? ondansetron ODT (ZOFRAN-ODT) disintegrating tablet 4 mg, 4 mg, Oral, Q6H PRN, Nicole Magaña MD ??? polyethylene glycol (MIRALAX) packet 17 g, 17 g, Oral, Once a day, Nicole Magaña MD, 17 g at 01/28/20827 ??? rOPINIRole (REQUIP) tablet 0.5 mg, 0.5 mg, Oral, Nightly, Nicole Magaña MD, 0.5 mg at 01/28/202033 ??? sevelamer carbonate (RENVELA) tablet 800 mg, 800 mg, Oral, TID with meals, Nicole Magaña MD, 800 mg at 01/28/20 1651 ??? sodium chloride 0.9 % infusion 0-500 mL, 0-500 mL, Intravenous (Continuous Infusion), PRN During Dialysis, Carmen Blackman MD ??? sodium chloride 0.9 % infusion 200 mL, 200 mL, Intravenous (Continuous Infusion), Once, Carmen Curtis MD ??? tamsulosin (FLOMAX) 24 hr capsule 0.4 mg, 0.4 mg, Oral, Nightly, Nicole Magaña MD, 0.4 mg at 01/28/202036 ??? acetaminophen ??? Benzocaine-Menthol ??? bisacodyl ??? diphenhydrAMINE ??? HYDROcodone-acetaminophen OR HYDROcodone-acetaminophen ??? ondansetron ODT ??? sodium chloride Physical Exam: General: awake and alert. In NAD Lungs: CTA B/L Heart: RRR, S1 and S2 without rubs Abdomen: Soft, NT/ND, + BS Ext: Without edema Labs: Recent Labs Lab Units 01/27/2044401/25/20121701/24/20 0333 SODIUM MMOL/L BLOOD mmol/L 133* -- 136 POTASSIUM MMOL/L BLOOD mmol/L 4.9 5.3* 4.8 CHLORIDE mmol/L 96* -- 98 CO2 mmol/L 27 -- 28 BUN MG/DL BLOOD mg/dL 24 -- 32* CREATININE mg/dL 6.28* -- 5.84* GLUCOSE MG/DL BLOOD mg/dL 87 -- 96 CALCIUM MG/DL BLOOD mg/dL 8.7 -- 8.8 ANION GAP BLOOD mmol/L 10 -- 10 Recent Labs Lab Units 01/27/2044401/25/20121701/24/20 0333 SODIUM MMOL/L BLOOD mmol/L 133* -- 136 POTASSIUM MMOL/L BLOOD mmol/L 4.9 5.3* 4.8 CHLORIDE mmol/L 96* -- 98 CO2 mmol/L 27 -- 28 BUN MG/DL BLOOD mg/dL 24 -- 32* CREATININE mg/dL 6.28* -- 5.84* GLUCOSE MG/DL BLOOD mg/dL 87 -- 96 CALCIUM MG/DL BLOOD mg/dL 8.7 -- 8.8 Recent Labs Lab Units 01/27/20 0445 01/25/20 1218 01/24/20 0333 SODIUM MMOL/L BLOOD mmol/L 133* -- 136 POTASSIUM MMOL/L BLOOD mmol/L 4.9 5.3* 4.8 CHLORIDE mmol/L 96* -- 98 CO2 mmol/L 27 -- 28 BUN MG/DL BLOOD mg/dL 24 -- 32* CREATININE mg/dL 6.28* -- 5.84* GLUCOSE MG/DL BLOOD mg/dL 87 -- 96 CALCIUM MG/DL BLOOD mg/dL 8.7 -- 8.8 Recent Labs Lab Units 01/27/20 0445 01/24/20 0333 WBC X(10)9/L BLOOD x10E9/L 4.5 6.4 HGB GM/DL BLOOD gm/dL 7.8* 7.8* HCT % BLOOD % 24.5* 24.9* PLT CT X(10)9/L BLOOD x10E9/L 289 283 Assessment/ Plan: ESRD, on IHD TTS, HTN, BP is soft now, BP medications adjusted Anemia due to CKD Advanced arthritis left hip underwent left hip arthoplasty History of recurrent volume overload, now stable on UF History of recurrent hyperkalemia, due to ESRD DM CARMEN BLACKMAN MD Office [phone] * Mike Zamora MD - 01/27/2020 5:12 PM CDT REHAB INTERDISCIPLINARY PROGRESS NOTE Patient's Primary Care Physician: No primary care provider on file. Name: Ferdinand Rasmussen Age: 74 y.o. Chief Complaint/History of Present Illness Patient reports no new complaints. History of Present Illness Obtained from family/patient/staff. PFSHX: PMH: I have reviewed and there is no change Family: I have reviewed and there is no change Social: I have reviewed and there is no change No Known Allergies REVIEW OF SYSTEMS Odynophagia much improved. EXAMINATION Vitals: 01/27/20 1555 01/27/20 1615 01/27/20 1635 01/27/20 1655 BP: (!) 153/66 139/64 111/56 106/57 Pulse: 80 83 81 83 Resp: Temp: TempSrc: SpO2: Weight: Height: PHYSICAL EXAMINATION: GENERAL: Reveals a slender, alert, elderly gentleman, who is oriented x3. HEENT: Reveals a normocephalic, atraumatic head. He is edentulous. No noted tongue or buccal lesions. Noted placques on pharyngeal wall. No palpable cervical lymphadenopathy. Left submental non-tender chronic appearing nodule palpated. CARDIAC: Reveals a regular rate and rhythm. LUNGS: Clear to auscultation, although inspiratory effort is markedly diminished. CHEST: Tunneled catheter at right chest. ABDOMEN: Soft. Bowel sounds are present. : Unremarkable. EXTREMITIES: Reveals a well-healing right lateral thigh incision with lyric removed and steristrips placed.. Homans are negative bilaterally. SKIN: Examination of the skin reveals no breakdown over the sacrum, occiput, or heels. NEUROLOGIC: Cranial nerves 2 through 12 appear to be intact. Motor examination reveals no pronator drift. Manual muscle testing reveals grade 4- strength of the upper extremities and at the left leg,he has grade 4- strength. At the right lower extremity, formal manual muscle testing was deferred proximally, but distally, he does appear to have grade 4- strength at the knee and ankle. Sensory testing yielded some equivocal responses distal to the ankles bilaterally, but overall, he does appear to have preserved pinprick on either side of the face, trunk, and extremities. Deep tendon reflexes are diminished throughout. No ankle clonus was elicited. Cerebellar examination was unremarkable. DATA/LAB/RADIOLOGY Meds: Current Facility-Administered Medications Medication Dose Route Frequency Provider Last Rate Last Dose ??? acetaminophen (TYLENOL) tablet 650 mg 650 mg Oral Q6H PRN Nicole Magaña MD 650 mg at 01/22/202144 ??? allopurinol (ZYLOPRIM) tablet 100 mg 100 mg Oral Nightly Mike Zamora MD 100 mg at 01/26/202010 ??? Apixaban (ELIQUIS) tablet 2.5 mg 2.5 mg Oral BID Nicole Magaña MD 2.5 mg at 01/27/20822 ??? atorvastatin (LIPITOR) tablet 20 mg 20 mg Oral Nightly Nicole Magaña MD 20 mg at 01/26/202010 ??? Benzocaine-Menthol (CEPACOL) 1 lozenge 1 lozenge Oral TID PRN Nicole Magaña MD 1 lozenge at 01/25/20 0758 ??? bisacodyl (DULCOLAX) suppository 10 mg 10 mg Rectal Daily PRN Nicole Magaña MD ??? dilTIAZem CD (CARDIZEM CD) 24 hr capsule 120 mg 120 mg Oral Once a day Carmen Blackman MD 120 mg at 01/26/20 09 ??? diphenhydrAMINE (BENADRYL) tablet 25 mg 25 mg Oral Q6H PRN Nicole Magaña MD ??? docusate sodium (COLACE) capsule 100 mg 100 mg Oral BID Nicole Magaña MD 100 mg at 01/27/20822 ??? famotidine (PEPCID) tablet 20 mg 20 mg Oral Q48H Nicole Magaña MD 20 mg at 01/27/20822 ??? fluconazole (DIFLUCAN) tablet 200 mg 200 mg Oral Once a day Mike Zamora MD 200 mg at 01/27/20822 ??? furosemide (LASIX) tablet 80 mg 80 mg Oral BID AC Carmen Blackman MD 80 mg at 01/26/20 1734 ??? heparin (porcine) injection 1,000 Units 1,000 Units Intravenous TThSat w/ Dialysis Carmen Blackman MD 1,000 Units at 01/27/201657 ??? heparin (porcine) injection 4,300 Units 4,300 Units Intracatheter Once per day on Fri Carmen Blackman MD 4,300 Units at 01/27/20 1659 ??? HYDROcodone-acetaminophen (NORCO) 5-325 MG per tablet 1 tablet 1 tablet Oral Q6H PRN Nicole Magaña MD 1 tablet at 01/25/20 1226 Or ??? HYDROcodone-acetaminophen (LORCET PLUS) 10-325 MG per tablet 1 tablet 1 tablet Oral Q6H PRN Nicole Magaña MD 1 tablet at 01/22/20 1832 ??? ondansetron ODT (ZOFRAN-ODT) disintegrating tablet 4 mg 4 mg Oral Q6H PRN Nicole Magaña MD ??? polyethylene glycol (MIRALAX) packet 17 g 17 g Oral Once a day Nicole Magaña MD 17 g at 01/27/20 0824 ??? rOPINIRole (REQUIP) tablet 0.5 mg 0.5 mg Oral Nightly Nicole Magaña MD 0.5 mg at 01/26/202010 ??? sevelamer carbonate (RENVELA) tablet 800 mg 800 mg Oral TID with meals Nicole Magaña MD 800 mg at 01/27/20 1222 ??? sodium chloride 0.9 % infusion 0-500 mL 0-500 mL Intravenous (Continuous Infusion) PRN During Dialysis Carmen Blackman MD ??? sodium chloride 0.9 % infusion 200 mL 200 mL Intravenous (Continuous Infusion) Once Carmen Blackman MD ??? tamsulosin (FLOMAX) 24 hr capsule 0.4 mg 0.4 mg Oral Nightly Nicole Magaña MD 0.4 mg at 01/26/202010 Labs: Lab Results Component Value Date WBC 4.5 01/27/2020 HGB 7.8 (L) 01/27/2020 HCT 24.5 (L) 01/27/2020 MCV 104.7 (H) 01/27/2020 PLT 289 01/27/2020 Lab Results Component Value Date GLUCOSE 87 01/27/2020 CALCIUM 8.7 01/27/2020 NA 133 (L) 01/27/2020 K 4.9 01/27/2020 CO2 27 01/27/2020 CL 96 (L) 01/27/2020 BUN 24 01/27/2020 CREATININE 6.28 (H) 01/27/2020 REVIEW OF FUNCTIONAL STATUS Amb over 200' with distant supervision and RW. Modified independent for sit to stand transfers. MEDICAL DECISION MAKING/PLAN Problem List: 1. End-stage osteoarthritis of the left hip, status post left total hip arthroplasty 01/12/2020. Discussed wound appearance with Wound nurse. No signs of dehiscence. 2. End-stage renal disease, on hemodialysis. Nephrology follow up and recommendations noted and appreciated. 3. Paroxysmal atrial fibrillation. jyoti Aguirre. 4. Dementia. 5. Anemia. 6. Previous history of stroke. 7. Dyslipidemia. Lipitor. 8. Hypertension. BP in acceptable range. 9. Restless legs syndrome. Requip. 10. Bladder outlet obstruction related to prostatic hypertrophy. 11. History of gout. Zyloprim. No noted acute joint flares. 12. 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 Modified diet requested, considering MBS. Monitoring for clinical signs of aspiration. 13. Bladder/bowel: Continent. Last BM 01/25. Signed: MIKE ZAMORA MD 01/27/2020 5:12 PM CDT * Mor Ordonez NP - 01/27/2020 1:17 PM CDT Progress notes CHIEF COMPLAINT Active Problems: Osteoarthritis History of Present illness The patient is a 74 y.o. y/o male with history of DM, HTN, ESRD on HD, Dementia and placement rightdeep brachial vein arteriovenous fistula 10/20/2019 and with advanced arthritis left hip underwent left hip arthoplasty by Dr. Agudelo Aggrevating/relieving factors History also obtained from review of patients previous acute hospitalization chart, current rehabilitation chart , discussion with family members in the room and discussion with nursing staff taking care of the patient. Subjective: (01/21) Patient seen in during PT time and after in his room Patient mildly confused ,not in distress Patient stated had good night sleep , no pain. Denies dizziness, BP dropping to 78/47 mm/Hg , [id number] MIN last Creatinine from 01/20 was 4.52 with BUN 29 ; Hb 8.3,Plt 226 . Left hip lyric on no drainage no discharge 01/22 Patient seen in during PT time and after in his room .Patient mildly confused ,not in distress Patient stated had good night sleep , no pain. Denies dizziness, BP 78/47 and now 100/54 mm/Hg , last Creatinine from 01/20.Yesterday had HD.was 4.52 with BUN 29 ; Hb 8.3,Plt 226 . Left hip lyric on no drainage no discharge 01/23 Patient seen and evaluated on daily rounds. No overnight events reported. Patient has been participating with therapy and is doing well. Pt seen today sitting up in wheelchair. Pt denies pain at thistime, well controlled with current medications. Slept well and appetite good. Last BM 01/23/2020, noissues. Voiding well. Patient denies any chest pain, palpitations, shortness of breath, cough, abdominal pain, nausea and vomiting, or constipation. Pt reports trouble with swallowing food regular food, so his diet has been modified by the dietitian, but remains on thin liquids. Pt also complained of a sore throat so lozenges were ordered Afebrile 98 BP 133/67 HR 69 Labs reviewed. Reviewed care with patient and RN. No other needs or concerns expressed at this time. 01/24 Patient seen and evaluated on daily rounds. No overnight events reported. Patient has been participating with therapy and is doing well. Pt seen today laying in bed, during dialysis. Pt denies pain at this time, well controlled with current medications. Slept well and appetite good. Last BM 01/22, no issues. Voiding well. Patient denies any chest pain, palpitations, shortness of breath, cough, abdominal pain, nausea and vomiting, or constipation. Afebrile 98.6 BP 99/64 HR 84 Labs reviewed. Reviewed care with patient and RN. No other needs or concerns expressed at this time. 01/25 Patient doing ok No new issues to report Doing well 01/27/20 Patient seen and evaluated on daily rounds. No over night events reported. Patient denies any fever, chills, chest pain, shortness of breath, abdominal pain, nausea or vomiting. Patient reports doingokay with no issues of bowel or bladder. No pain reported when seen Review of Systems General: no weight loss, no fever, no chills, no anorexia Skin: no rash Eyes: no blurry vision Ears/Nose/Throat: no nasal congestion, no sore throat Respiratory: no cough, no dyspnea, no wheezing Cardiovascular: no chest pain, no ankle swelling Gastrointestinal: no nausea, no vomiting, no diarrhea, no constipation, no abdominal pain. No melena, no bright red blood per rectum Genitourinary: no dysuria, no hematuria Musculoskeletal: no joint pain, no myalgia, + muscle weakness Neurologic: no seizures, no tremors, no fainting, no focal weakness , tingling or numbness Hematologic/Lymphatic: no abnormal bleeding, no abnormal bruising Endocrine: no heat or cold intolerance, no polydipsia, no polyuria Psychiatric: no anxiety, no depression Allergy/Immunology: no seasonal allergies, no joint stiffness in morning Review of ssytems pertinent as above and all the other 14 organ systems are negative Past Medical History Past Medical History: Diagnosis Date ??? Diabetes mellitus ??? Diabetes mellitus 05/12/2019 ??? End stage renal failure on dialysis 05/12/2019 New to dialysis ??? Hypertension ??? Other abnormal clinical findings ??? Seroma 05/12/2019 Proximal Left thigh 60 x 23 x39 mm by US Past Surgical History No past surgical history on file. Allergies No Known Allergies Home Medications Prior to Admission medications Medication Sig Start Date End Date Taking? Authorizing Provider acetaminophen (TYLENOL) 325 MG tablet 1 tablet (325 mg total) by PO/Per Tube route every 6 (six) hours as needed for mild pain (1 - 3) or Temp > or equal to 101F (38.3C). 05/28/19 Florencia Moulton MD allopurinol (ZYLOPRIM) 100 MG tablet Take 1 tablet (100 mg total) by mouth daily. 05/28/19 Florencia Moulton MD atorvastatin (LIPITOR) 20 MG tablet Take 1 tablet (20 mg total) by mouth daily. 05/28/19 Florencia Moulton MD Diclofenac Sodium (VOLTAREN) 1 % gel Apply 2 g topically 2 (two) times a day. 05/28/19 Florencia Moulton MD docusate sodium (COLACE) 100 MG capsule Take 1 capsule (100 mg total) by mouth daily. 05/28/19 MD Nico donepezil (ARICEPT) 10 MG tablet Take 1 tablet (10 mg total) by mouth nightly. 05/28/19 Florencia Moulton MD folic acid (FOLVITE) 1 MG tablet Take 1 tablet (1 mg total) by mouth daily. 05/28/19 Florencia Moulton MD furosemide (LASIX) 80 MG tablet Take 1 tablet (80 mg total) by mouth 2 (two) times a day diuretic. 05/28/19 Florencia Moulton MD lidocaine (LIDOCARE) 4 % patch patch Place 2 patches on the skin daily. 05/28/19 Florencia Moulton MD oxyCODONE-acetaminophen (PERCOCET) 5-325 MG per tablet Take 1 tablet by mouth every 6 (six) hours as needed for moderate pain (4 - 6). Max Daily Amount: 4 tablets 05/28/19 Florencia Moulton MD rOPINIRole (REQUIP) 0.5 MG tablet Take 1 tablet (0.5 mg total) by mouth Three times per week with dialysis. 05/29/19 Florencia Moulton MD tamsulosin (FLOMAX) 0.4 MG capsule Take 1 capsule (0.4 mg total) by mouth nightly. 05/28/19 Florencia Moulton MD CURRENT Medications Current Facility-Administered Medications: ??? acetaminophen (TYLENOL) tablet 650 mg, 650 mg, Oral, Q6H PRN, Nicole Magaña MD, 650 mg at 01/22/202144 ??? allopurinol (ZYLOPRIM) tablet 100 mg, 100 mg, Oral, Nightly, Mike Zamora MD, 100 mg at 01/26/202010 ??? Apixaban (ELIQUIS) tablet 2.5 mg, 2.5 mg, Oral, BID, Nicole Magaña MD, 2.5 mg at 01/27/20 08 ??? atorvastatin (LIPITOR) tablet 20 mg, 20 mg, Oral, Nightly, Nicole Magaña MD, 20 mg at 01/26/202010 ??? Benzocaine-Menthol (CEPACOL) 1 lozenge, 1 lozenge, Oral, TID PRN, Nicole Magaña MD, 1 lozenge at 01/25/20 0758 ??? bisacodyl (DULCOLAX) suppository 10 mg, 10 mg, Rectal, Daily PRN, Nicole Magaña MD ??? dilTIAZem CD (CARDIZEM CD) 24 hr capsule 120 mg, 120 mg, Oral, Once a day, Carmen Blackman MD, 120 mg at 01/26/20 0921 ??? diphenhydrAMINE (BENADRYL) tablet 25 mg, 25 mg, Oral, Q6H PRN, Nicole Magaña MD ??? docusate sodium (COLACE) capsule 100 mg, 100 mg, Oral, BID, Nicole Magaña MD, 100 mg at 10/01/20 0823 ??? famotidine (PEPCID) tablet 20 mg, 20 mg, Oral, Q48H, Nicole Magaña MD, 20 mg at 01/27/20822 ??? fluconazole (DIFLUCAN) tablet 200 mg, 200 mg, Oral, Once a day, Mike Zamora MD, 200 mg at 01/27/20822 ??? furosemide (LASIX) tablet 80 mg, 80 mg, Oral, BID AC, Carmen Blackman MD, 80 mg at 01/26/20 1734 ??? heparin (porcine) injection 1,000 Units, 1,000 Units, Intravenous, TThSat w/ Dialysis, Carmen Blackman MD, 1,000 Units at 01/25/20 1346 ??? HYDROcodone-acetaminophen (NORCO) 5-325 MG per tablet 1 tablet, 1 tablet, Oral, Q6H PRN, 1 tablet at 01/25/20 1226 OR HYDROcodone-acetaminophen (LORCET PLUS) 10-325 MG per tablet 1 tablet, 1 tablet, Oral, Q6H PRN, Nicole Magaña MD, 1 tablet at 01/22/20 1832 ??? ondansetron ODT (ZOFRAN-ODT) disintegrating tablet 4 mg, 4 mg, Oral, Q6H PRN, Nicole Magaña MD ??? polyethylene glycol (MIRALAX) packet 17 g, 17 g, Oral, Once a day, Nicole Magaña MD, 17 g at 01/27/20 0824 ??? rOPINIRole (REQUIP) tablet 0.5 mg, 0.5 mg, Oral, Nightly, Nicole Magaña MD, 0.5 mg at 01/26/202010 ??? sevelamer carbonate (RENVELA) tablet 800 mg, 800 mg, Oral, TID with meals, Nicole Magaña MD, 800 mg at 01/27/20 1222 ??? sodium chloride 0.9 % infusion 0-500 mL, 0-500 mL, Intravenous (Continuous Infusion), PRN During Dialysis, Carmen Blackman MD ??? sodium chloride 0.9 % infusion 200 mL, 200 mL, Intravenous (Continuous Infusion), Once, Carmen Curtis MD ??? tamsulosin (FLOMAX) 24 hr capsule 0.4 mg, 0.4 mg, Oral, Nightly, Nicole Magaña MD, 0.4 mg at 01/26/202010 Social History reports that he has quit smoking. He does not have any smokeless tobacco history on file. Alcohol use questions deferred to the physician. Denies smoking, alcohol or illicit drugs currently Family History No family history on file. No known history of thromboembolism Physical Exam Vital Signs: Temp: [98.6 ??F (37 ??C)-98.8 ??F (37.1 ??C)] 98.8 ??F (37.1 ??C) Pulse: [68-78] 78 Resp: [16-17] 17 BP: (99-128)/(50-62) 99/50 I/O Intake/Output Summary (Last 24 hours) at 01/27/2020 1317 Last data filed at 01/27/2020 0800 Gross per 24 hour Intake 480 ml Output -- Net 480 ml Weights (last 3 days) None WEIGHTS 133 lb 6.4 oz (60.5 kg) General appearance: awake, alert, cooperative, no distress, MILDLY Confused HEENT: Normocephalic, No icterus, No oral lesions, Oral and nasal mucosa moist Neck: Supple, no lymphadenopathy Eyes: EOMI, Conjunctiva normal, No discharge Cardiovascular: s1-s2 audible, Normal heart rate, Normal rhythm, No murmurs, No rubs, No gallops Respiratory: Normal breath sounds, No respiratory distress, No wheezing, No rhonchi, No rales, No chest tenderness. GI: Bowel sounds normal, Soft, No tenderness, No rebound or guarding, No masses. Abdomen: soft without mass, non-tender, with normal bowel sounds, Extremities: no clubbing, cyanosis or edema, no calf tenderness Musculoskeletal:no swelling of joints or redness, FROM otherjoints Psychologic: Mood and affect appropriate, no suicidal ideation. Skin: No rash, swelling or erythema identified . Warm and Dry, lyric to the left hip removed; incision remains well approximated dry and intact Neurologic/[employer] SOFTWARE ENGINEER:Alert & oriented x 3, Speech normal, Tongue and uvula central Strength is 4/5 in all extremities ?? No clonus Gait not tested ? Please see height, weight, and BP reported elsewhere as part of this encounter Labs CBC with Differential: Lab Results Component Value Date WBC 4.5 01/27/2020 HGB 7.8 (L) 01/27/2020 HCT 24.5 (L) 01/27/2020 PLT 289 01/27/2020 MCV 104.7 (H) 01/27/2020 MCH 33.3 01/27/2020 MCHC 31.8 01/27/2020 RDW 12.2 01/27/2020 [ BMP: Lab Results Component Value Date NA 133 (L) 01/27/2020 K 4.9 01/27/2020 CL 96 (L) 01/27/2020 CO2 27 01/27/2020 BUN 24 01/27/2020 CREATININE 6.28 (H) 01/27/2020 GLUCOSE 87 01/27/2020 CALCIUM 8.7 01/27/2020 ANIONGAP 10 01/27/2020 MG/PHOS: No results found for: MG, PHOS CKMB: No components found for: CKMB;2 PT/INR: No results found for: LABPROT, INR CMP: Lab Results Component Value Date NA 133 (L) 01/27/2020 K 4.9 01/27/2020 CL 96 (L) 01/27/2020 CO2 27 01/27/2020 BUN 24 01/27/2020 CREATININE 6.28 (H) 01/27/2020 GLUCOSE 87 01/27/2020 CALCIUM 8.7 01/27/2020 ANIONGAP 10 01/27/2020 LFT's: No results found for: ALB, PROT Ionized Calcium: No components found for: IONCA ABG: No results found for: PHART, [id number], PO2ART, HXT6EYC, BEART, A9CAGDST HgBA1c: No results found for: HGBA1C Lipid Panel: No results found for: CHOL, TRIG, HDL TSH: No results found for: TSH IMAGING STUDIES & OTHER STUDIES Assessment and plan Advanced left hip arthritis S/p left hip arthroplasty F/u incision - incision remains well approximated and intact after removal of lyric -continue pain control with oral medication - continue PT/OT ESRD HD Consult renal follow up with waxer floor MD Carmen Blackman 01/21 CMP on Friday Chronic fluid overload Despite dialysis On lasix (01/21 BUN29; creatinine 4.52) - continue hemodialysis treatments - recheck BNP and notify Nephrology Hypertension BP low on, diltiazem, lasix DC lisinopril BP improved now Dyslipidemia Lipitor Gout Allopurinol F/U Diabetes mellitus Diet??controlled Accu, SSI Atrial fibrillation Eliquis for atrial fibrillation Not on rate control F/U daily Hypotension (01/22) NS 250 ml x 1 now. Macrocytic Anemia - related to chronic renal disease - hemoglobin worsening, will check B12 folate and iron panel - may need iron IV - nephrology following Dementia Continue aricept Restless leg requip HLD Statin Pain management Today's pain score 3 FEN. Nutrition consult for evaluation of nutritional status and the best diet. And for BMI evaluation and education regarding maintaining a healthy BMI Bladder management Voiding ok Bowel management . Titrate bowel medications for constipation/diarrhea. Skin. Nursing to address skin care throughout stay. Turn every 2 hrs Sleep. Monitor sleep-wake cycle. High Fall risk- Fall precautions GI Prophylaxis: DVT Prophylaxis: Full Resuscitation Electronically signed by: MOR ORDONEZ NP, 01/27/2020 1:17 PM CDT CC: No primary care provider on file. Cosigned by Misty Hathaway MD at 01/28/2020 8:46 AM CDT Associated attestation - Misty Hathaway MD - 01/28/2020 9:46 AM EDT The patient is being seen for follow-up of all current problems, BP, BS , HR, labs and strength. Follow up on pain, swallowing, bladder and bowel function. Strength improving, able to do therapy ok. I saw and evaluated the patient face to face in conjunction with the BISQUE WARE DIPPER and agree with the management and disposition of the patient. History also obtained from Nurse and staff about how the patient did overnight and during the day. I performed mario portions of the follow up, review of labs and radiology and evaluation. I agree with the subjective, physical exam and assessment and plan details as outlined in the note below. Discussed the mario medical decision making- both assessment and plan, rehabilitation goals and treatment plan with patient, BISQUE WARE DIPPER , nursing staff, kitman and the members of the team. * Nicole Magaña MD - 01/26/2020 8:54 PM CDT Progress notes CHIEF COMPLAINT Active Problems: Osteoarthritis Subjective: (01/21) Patient seen in during PT time and after in his room Patient mildly confused ,not in distress Patient stated had good night sleep , no pain. Denies dizziness, BP dropping to 78/47 mm/Hg , [id number] MIN last Creatinine from 01/20 was 4.52 with BUN 29 ; Hb 8.3,Plt 226 . Left hip lyric on no drainage no discharge 01/22 Patient seen in during PT time and after in his room .Patient mildly confused ,not in distress Patient stated had good night sleep , no pain. Denies dizziness, BP 78/47 and now 100/54 mm/Hg , last Creatinine from 01/20.Yesterday had HD.was 4.52 with BUN 29 ; Hb 8.3,Plt 226 . Left hip lyric on no drainage no discharge 01/23 Patient seen and evaluated on daily rounds. No overnight events reported. Patient has been participating with therapy and is doing well. Pt seen today sitting up in wheelchair. Pt denies pain at thistime, well controlled with current medications. Slept well and appetite good. Last BM 01/23/2020, noissues. Voiding well. Patient denies any chest pain, palpitations, shortness of breath, cough, abdominal pain, nausea and vomiting, or constipation. Pt reports trouble with swallowing food regular food, so his diet has been modified by the dietitian, but remains on thin liquids. Pt also complained of a sore throat so lozenges were ordered Afebrile 98 BP 133/67 HR 69 Labs reviewed. Reviewed care with patient and RN. No other needs or concerns expressed at this time. 01/24 Patient seen and evaluated on daily rounds. No overnight events reported. Patient has been participating with therapy and is doing well. Pt seen today laying in bed, during dialysis. Pt denies pain at this time, well controlled with current medications. Slept well and appetite good. Last BM 01/22, no issues. Voiding well. Patient denies any chest pain, palpitations, shortness of breath, cough, abdominal pain, nausea and vomiting, or constipation. Afebrile 98.6 BP 99/64 HR 84 Labs reviewed. Reviewed care with patient and RN. No other needs or concerns expressed at this time. 01/25 Patient doing ok No new issues to report Doing well History of Present illness The patient is a 74 y.o. y/o male with history of DM, HTN, ESRD on HD, Dementia and placement rightdeep brachial vein arteriovenous fistula 10/20/2019 and with advanced arthritis left hip underwent left hip arthoplasty by Dr. Agudelo currently here for therapy Todays chief Complains Hip pain Ok on pain meds constipation Duration of problems- Intensity Type Associated symptoms Aggrevating/relieving factors History also obtained from review of patients previous acute hospitalization chart, current rehabilitation chart , discussion with family members in the room and discussion with nursing staff taking care of the patient. Review of Systems General: no weight loss, no fever, no chills, no anorexia Skin: no rash Eyes: no blurry vision Ears/Nose/Throat: no nasal congestion, no sore throat Respiratory: no cough, no dyspnea, no wheezing Cardiovascular: no chest pain, no ankle swelling Gastrointestinal: no nausea, no vomiting, no diarrhea, no constipation, no abdominal pain. No melena, no bright red blood per rectum Genitourinary: no dysuria, no hematuria Musculoskeletal: no joint pain, no myalgia, no muscle weakness Neurologic: no seizures, no tremors, no fainting, no focal weakness , tingling or numbness Hematologic/Lymphatic: no abnormal bleeding, no abnormal bruising Endocrine: no heat or cold intolerance, no polydipsia, no polyuria Psychiatric: no anxiety, no depression Allergy/Immunology: no seasonal allergies, no joint stiffness in morning Review of ssytems pertinent as above and all the other 14 organ systems are negative Past Medical History Past Medical History: Diagnosis Date ??? Diabetes mellitus ??? Diabetes mellitus 05/12/2019 ??? End stage renal failure on dialysis 05/12/2019 New to dialysis ??? Hypertension ??? Other abnormal clinical findings ??? Seroma 05/12/2019 Proximal Left thigh 60 x 23 x39 mm by US Past Surgical History No past surgical history on file. Allergies No Known Allergies Home Medications Prior to Admission medications Medication Sig Start Date End Date Taking? Authorizing Provider acetaminophen (TYLENOL) 325 MG tablet 1 tablet (325 mg total) by PO/Per Tube route every 6 (six) hours as needed for mild pain (1 - 3) or Temp > or equal to 101F (38.3C). 05/28/19 Floerncia Moulton MD allopurinol (ZYLOPRIM) 100 MG tablet Take 1 tablet (100 mg total) by mouth daily. 05/28/19 Florencia Moulton MD atorvastatin (LIPITOR) 20 MG tablet Take 1 tablet (20 mg total) by mouth daily. 05/28/19 Florencia Moulton MD Diclofenac Sodium (VOLTAREN) 1 % gel Apply 2 g topically 2 (two) times a day. 05/28/19 Florencia Moulton MD docusate sodium (COLACE) 100 MG capsule Take 1 capsule (100 mg total) by mouth daily. 05/28/19 MD Nico donepezil (ARICEPT) 10 MG tablet Take 1 tablet (10 mg total) by mouth nightly. 05/28/19 Florencia Moulton MD folic acid (FOLVITE) 1 MG tablet Take 1 tablet (1 mg total) by mouth daily. 05/28/19 Florencia Moulton MD furosemide (LASIX) 80 MG tablet Take 1 tablet (80 mg total) by mouth 2 (two) times a day diuretic. 05/28/19 Florencia Moulton MD lidocaine (LIDOCARE) 4 % patch patch Place 2 patches on the skin daily. 05/28/19 Florencia Moulton MD oxyCODONE-acetaminophen (PERCOCET) 5-325 MG per tablet Take 1 tablet by mouth every 6 (six) hours as needed for moderate pain (4 - 6). Max Daily Amount: 4 tablets 05/28/19 Florencia Moulton MD rOPINIRole (REQUIP) 0.5 MG tablet Take 1 tablet (0.5 mg total) by mouth Three times per week with dialysis. 05/29/19 Florencia Moulton MD tamsulosin (FLOMAX) 0.4 MG capsule Take 1 capsule (0.4 mg total) by mouth nightly. 05/28/19 Florencia Moulton MD CURRENT Medications Current Facility-Administered Medications: ??? acetaminophen (TYLENOL) tablet 650 mg, 650 mg, Oral, Q6H PRN, Nicole Magaña MD, 650 mg at 01/22/205 ??? allopurinol (ZYLOPRIM) tablet 100 mg, 100 mg, Oral, Nightly, Mike Zamora MD, 100 mg at 01/26/202010 ??? Apixaban (ELIQUIS) tablet 2.5 mg, 2.5 mg, Oral, BID, Nicole Magaña MD, 2.5 mg at 01/26/202011 ??? atorvastatin (LIPITOR) tablet 20 mg, 20 mg, Oral, Nightly, Nicole Magaña MD, 20 mg at 01/26/202010 ??? Benzocaine-Menthol (CEPACOL) 1 lozenge, 1 lozenge, Oral, TID PRN, Nicole Magaña MD, 1 lozenge at 01/25/20 0758 ??? bisacodyl (DULCOLAX) suppository 10 mg, 10 mg, Rectal, Daily PRN, Nicole Magaña MD ??? dilTIAZem CD (CARDIZEM CD) 24 hr capsule 120 mg, 120 mg, Oral, Once a day, Carmen Blackman MD, 120 mg at 01/26/20 0921 ??? diphenhydrAMINE (BENADRYL) tablet 25 mg, 25 mg, Oral, Q6H PRN, Nicole Magaña MD ??? docusate sodium (COLACE) capsule 100 mg, 100 mg, Oral, BID, Nicole Magaña MD, 100 mg at 01/26/202010 ??? famotidine (PEPCID) tablet 20 mg, 20 mg, Oral, Q48H, Nicole Magaña MD, 20 mg at 01/25/20 0810 ??? fluconazole (DIFLUCAN) tablet 200 mg, 200 mg, Oral, Once a day, Mike Zamora MD, 200 mg at 01/26/20 0922 ??? furosemide (LASIX) tablet 80 mg, 80 mg, Oral, BID AC, Carmen Blackman MD, 80 mg at 01/26/20 1734 ??? heparin (porcine) injection 1,000 Units, 1,000 Units, Intravenous, TThSat w/ Dialysis, Carmen Blackman MD, 1,000 Units at 01/25/20 1346 ??? HYDROcodone-acetaminophen (NORCO) 5-325 MG per tablet 1 tablet, 1 tablet, Oral, Q6H PRN, 1 tablet at 01/25/20 1226 OR HYDROcodone-acetaminophen (LORCET PLUS) 10-325 MG per tablet 1 tablet, 1 tablet, Oral, Q6H PRN, Nicole Magaña MD, 1 tablet at 01/22/20 1832 ??? ondansetron ODT (ZOFRAN-ODT) disintegrating tablet 4 mg, 4 mg, Oral, Q6H PRN, Nicole Magaña MD ??? polyethylene glycol (MIRALAX) packet 17 g, 17 g, Oral, Once a day, Nicole Magaña MD, 17 g at 01/26/20 09 ??? rOPINIRole (REQUIP) tablet 0.5 mg, 0.5 mg, Oral, Nightly, Nicole Magaña MD, 0.5 mg at 01/26/202010 ??? sevelamer carbonate (RENVELA) tablet 800 mg, 800 mg, Oral, TID with meals, Nicole Magaña MD, 800 mg at 01/26/20 1734 ??? sodium chloride 0.9 % infusion 0-500 mL, 0-500 mL, Intravenous (Continuous Infusion), PRN During Dialysis, Carmen Blackman MD ??? sodium chloride 0.9 % infusion 200 mL, 200 mL, Intravenous (Continuous Infusion), Once, Carmen Curtis MD ??? tamsulosin (FLOMAX) 24 hr capsule 0.4 mg, 0.4 mg, Oral, Nightly, Nicole Magaña MD, 0.4 mg at 01/26/202010 Social History reports that he has quit smoking. He does not have any smokeless tobacco history on file. Alcohol use questions deferred to the physician. Denies smoking, alcohol or illicit drugs currently Family History No family history on file. No known history of thromboembolism Physical Exam Vital Signs: Temp: [98.5 ??F (36.9 ??C)-99.1 ??F (37.3 ??C)] 98.6 ??F (37 ??C) Pulse: [68-77] 68 Resp: [16-18] 16 BP: (100-128)/(49-62) 116/59 I/O Intake/Output Summary (Last 24 hours) at 01/26/20202053 Last data filed at 01/26/2020 1800 Gross per 24 hour Intake 840 ml Output -- Net 840 ml POC Glucose POC Glucose 01/25/202112 150 Weights (last 3 days) Date/Time Weight 01/23/20 0520 133 lb 6.4 oz (60.5 kg) WEIGHTS 133 lb 6.4 oz (60.5 kg) General appearance: awake, alert, cooperative, no distress, MILDLY Confused HEENT: Normocephalic, No icterus, No oral lesions, Oral and nasal mucosa moist Neck: Supple, no lymphadenopathy Eyes: EOMI, Conjunctiva normal, No discharge Cardiovascular: s1-s2 audible, Normal heart rate, Normal rhythm, No murmurs, No rubs, No gallops Respiratory: Normal breath sounds, No respiratory distress, No wheezing, No rhonchi, No rales, No chest tenderness. GI: Bowel sounds normal, Soft, No tenderness, No rebound or guarding, No masses. Abdomen: soft without mass, non-tender, with normal bowel sounds, +/- Feeding Tube Extremities: no clubbing, cyanosis or edema, no calf tenderness Musculoskeletal:no swelling of joints.no redness, FROM otherjoints Psychologic: Mood and affect appropriate, no suicidal ideation. Skin: No rash, swelling or erythema identified . 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 No clonus Gait not tested ? Please see height, weight, and BP reported elsewhere as part of this encounter Labs CBC with Differential: Lab Results Component Value Date WBC 6.4 01/24/2020 HGB 7.8 (L) 01/24/2020 HCT 24.9 (L) 01/24/2020 PLT 283 01/24/2020 MCV 106.4 (H) 01/24/2020 MCH 33.3 01/24/2020 MCHC 31.3 01/24/2020 RDW 12.4 01/24/2020 [ BMP: Lab Results Component Value Date NA 136 01/24/2020 K 5.3 (H) 01/25/2020 CL 98 01/24/2020 CO2 28 01/24/2020 BUN 32 (H) 01/24/2020 CREATININE 5.84 (H) 01/24/2020 GLUCOSE 96 01/24/2020 CALCIUM 8.8 01/24/2020 ANIONGAP 10 01/24/2020 MG/PHOS: No results found for: MG, PHOS CKMB: No components found for: CKMB;2 PT/INR: No results found for: LABPROT, INR CMP: Lab Results Component Value Date NA 136 01/24/2020 K 5.3 (H) 01/25/2020 CL 98 01/24/2020 CO2 28 01/24/2020 BUN 32 (H) 01/24/2020 CREATININE 5.84 (H) 01/24/2020 GLUCOSE 96 01/24/2020 CALCIUM 8.8 01/24/2020 ALBUMIN 3.5 01/24/2020 ANIONGAP 10 01/24/2020 LFT's: No results found for: ALB, PROT Ionized Calcium: No components found for: IONCA ABG: No results found for: PHART, EXZ0NIM, PO2ART, PLT9GMR, BEART, I8FAPRTQ HgBA1c: No results found for: HGBA1C Lipid Panel: No results found for: CHOL, TRIG, HDL TSH: No results found for: TSH IMAGING STUDIES & OTHER STUDIES Assessment and plan Advanced left hip arthritis S/p left hip arthroplasty F/u incision On Eliquis ( A Fib) Pain control Therapy ESRD HD Consult renal follow up with waxer floor MD Carmen Blackman 01/21 CMP on Friday Chronic fluid overload Despite dialysis On lasix (01/21 BUN29; creatinine 4.52) Hypertension BP low on, diltiazem, lasix DC lisinopril BP improved now Dyslipidemia Lipitor Gout Allopurinol F/U Diabetes mellitus Diet??controlled Accu, SSI Atrial fibrillation Eliquis for atrial fibrillation Not on rate control F/U daily Hypotension (01/22) NS 250 ml x 1 now. Anemia with Hb 8.3 fup with cbc on Friday Social service to work on discharge planning Hyperkalemia due to ESRD, K stable Anemia, probably related to his CKD, F/u Dementia Continue aricept Restless leg requip HLD Statin Pain management Today's pain score 3 FEN. Nutrition consult for evaluation of nutritional status and the best diet. And for BMI evaluation and education regarding maintaining a healthy BMI Bladder management Voiding ok Bowel management . Titrate bowel medications for constipation/diarrhea. Skin. Nursing to address skin care throughout stay. Turn every 2 hrs Sleep. Monitor sleep-wake cycle. High Fall risk- Fall precautions GI Prophylaxis: DVT Prophylaxis: Full Resuscitation Electronically signed by: NICOLE MAGAÑA MD, 01/26/2020 8:54 PM CDT CC: No primary care provider on file. * Mike Zamora MD - 01/26/2020 5:02 PM CDT REHAB INTERDISCIPLINARY PROGRESS NOTE Patient's Primary Care Physician: No primary care provider on file. Name: Ferdinand Rasmussen Age: 74 y.o. Chief Complaint/History of Present Illness Patient reports no new complaints. History of Present Illness Obtained from family/patient/staff. PFSHX: PMH: I have reviewed and there is no change Family: I have reviewed and there is no change Social: I have reviewed and there is no change No Known Allergies REVIEW OF SYSTEMS Odynophagia much improved. EXAMINATION Vitals: 01/25/20 1704 01/25/20 1710 01/25/20 2210 01/26/20 0725 BP: (!) 155/60 150/61 100/49 112/56 Pulse: 83 79 73 77 Resp: 18 18 18 Temp: 98 ??F (36.7 ??C) 99.1 ??F (37.3 ??C) 98.5 ??F (36.9 ??C) TempSrc: Oral Oral Oral SpO2: 98% 97% 99% Weight: Height: PHYSICAL EXAMINATION: GENERAL: Reveals a slender, alert, elderly gentleman, who is oriented x3. HEENT: Reveals a normocephalic, atraumatic head. He is edentulous. No noted tongue or buccal lesions. Noted placques on pharyngeal wall. No palpable cervical lymphadenopathy. Left submental non-tender chronic appearing nodule palpated. CARDIAC: Reveals a regular rate and rhythm. LUNGS: Clear to auscultation, although inspiratory effort is markedly diminished. CHEST: Tunneled catheter at right chest. ABDOMEN: Soft. Bowel sounds are present. : Unremarkable. EXTREMITIES: Reveals a well-healing right lateral thigh incision with lyric in place and an overlying gauze dressing. Homans are negative bilaterally. SKIN: Examination of the skin reveals no breakdown over the sacrum, occiput, or heels. NEUROLOGIC: Cranial nerves 2 through 12 appear to be intact. Motor examination reveals no pronator drift. Manual muscle testing reveals grade 4- strength of the upper extremities and at the left leg,he has grade 4- strength. At the right lower extremity, formal manual muscle testing was deferred proximally, but distally, he does appear to have grade 4- strength at the knee and ankle. Sensory testing yielded some equivocal responses distal to the ankles bilaterally, but overall, he does appear to have preserved pinprick on either side of the face, trunk, and extremities. Deep tendon reflexes are diminished throughout. No ankle clonus was elicited. Cerebellar examination was unremarkable. POC Glucose POC Glucose 01/25/20 2113 150 DATA/LAB/RADIOLOGY Meds: Current Facility-Administered Medications Medication Dose Route Frequency Provider Last Rate Last Dose ??? acetaminophen (TYLENOL) tablet 650 mg 650 mg Oral Q6H PRN Nicole Magaña MD 650 mg at 01/22/20 2145 ??? allopurinol (ZYLOPRIM) tablet 100 mg 100 mg Oral Nightly Mike Zamora MD 100 mg at 01/25/202028 ??? Apixaban (ELIQUIS) tablet 2.5 mg 2.5 mg Oral BID Nicole Magaña MD 2.5 mg at 01/26/20 09 ??? atorvastatin (LIPITOR) tablet 20 mg 20 mg Oral Nightly Nicole Magaña MD 20 mg at 01/25/202028 ??? Benzocaine-Menthol (CEPACOL) 1 lozenge 1 lozenge Oral TID PRN Nicole Magaña MD 1 lozenge at 01/25/20 0758 ??? bisacodyl (DULCOLAX) suppository 10 mg 10 mg Rectal Daily PRN Nicole Magaña MD ??? dilTIAZem CD (CARDIZEM CD) 24 hr capsule 120 mg 120 mg Oral Once a day Carmen Blackman MD 120 mg at 01/26/20920 ??? diphenhydrAMINE (BENADRYL) tablet 25 mg 25 mg Oral Q6H PRN Nicole Magaña MD ??? docusate sodium (COLACE) capsule 100 mg 100 mg Oral BID Nicole Magaña MD 100 mg at 01/26/20 0921 ??? famotidine (PEPCID) tablet 20 mg 20 mg Oral Q48H Nicole Magaña MD 20 mg at 01/25/20 0810 ??? fluconazole (DIFLUCAN) tablet 200 mg 200 mg Oral Once a day Mike Zamora MD 200 mg at 01/26/20 09 ??? furosemide (LASIX) tablet 80 mg 80 mg Oral BID AC Carmen Blackman MD 80 mg at 01/26/20 09 ??? heparin (porcine) injection 1,000 Units 1,000 Units Intravenous TThSat w/ Dialysis Carmen Blackman MD 1,000 Units at 01/25/20 1346 ??? HYDROcodone-acetaminophen (NORCO) 5-325 MG per tablet 1 tablet 1 tablet Oral Q6H PRN Nicole Magaña MD 1 tablet at 01/25/20 1226 Or ??? HYDROcodone-acetaminophen (LORCET PLUS) 10-325 MG per tablet 1 tablet 1 tablet Oral Q6H PRN Nicole Magaña MD 1 tablet at 01/22/20 1832 ??? ondansetron ODT (ZOFRAN-ODT) disintegrating tablet 4 mg 4 mg Oral Q6H PRN Nicole Magaña MD ??? polyethylene glycol (MIRALAX) packet 17 g 17 g Oral Once a day Nicole Magaña MD 17 g at 01/26/20921 ??? rOPINIRole (REQUIP) tablet 0.5 mg 0.5 mg Oral Nightly Nicole Magaña MD 0.5 mg at 01/25/202028 ??? sevelamer carbonate (RENVELA) tablet 800 mg 800 mg Oral TID with meals Nicole Magaña MD 800 mg at 01/26/20 1203 ??? sodium chloride 0.9 % infusion 0-500 mL 0-500 mL Intravenous (Continuous Infusion) PRN During Dialysis Carmen Blackman MD ??? sodium chloride 0.9 % infusion 200 mL 200 mL Intravenous (Continuous Infusion) Once Carmen Blackman MD ??? tamsulosin (FLOMAX) 24 hr capsule 0.4 mg 0.4 mg Oral Nightly Nicole Magaña MD 0.4 mg at 01/25/202028 Labs: Lab Results Component Value Date WBC 6.4 01/24/2020 HGB 7.8 (L) 01/24/2020 HCT 24.9 (L) 01/24/2020 MCV 106.4 (H) 01/24/2020 PLT 283 01/24/2020 Lab Results Component Value Date GLUCOSE 96 01/24/2020 CALCIUM 8.8 01/24/2020 NA 136 01/24/2020 K 5.3 (H) 01/25/2020 CO2 28 01/24/2020 CL 98 01/24/2020 BUN 32 (H) 01/24/2020 CREATININE 5.84 (H) 01/24/2020 REVIEW OF FUNCTIONAL STATUS SM Functional Status PT Data (since 01/23/2020) Value Time User Bed Mobility Level of Assist Close Supervision 01/25/2020 8:02 AM Neli Argueta PTA Bed Mobility Comment Supine to sit from bed in room SBA for safety and cues 01/25/2020 8:02 AM Neli Argueta PTA Transfer to Stand 01/26/2020 10:38 AM Kylie Sanchez, PT Transfer from Wheelchair 01/26/2020 10:38 AM Kylie Sanchez, PT Transfer Level of Assist Distant Supervision 01/26/2020 10:38 AM Kylie Sanchez, PT Ambulation Level of Assist Distant Supervision 01/26/2020 10:38 AM Kylie Sanchez PT Distance (feet) 200 01/26/2020 10:38 AM Kylie Sanchez, PT Gait Analysis 1 x 200' with RW and distant supervision. Pt demonstrates decreased step length, decreased foot clearance with shuffling gait, increased forward trunk flexion, increased reliance on UE support from RW, and increased time to complete, however no noted LOB throughout. Seated rest break upon completion. 1 x 200' ambulation with RW and additional obstacles (6 inch hurdles x 10 total) and up/down 6 inch curb step (see below). Pt demonstrates with increased time to complete mobility when ambulating over obstacles, however is able to perform with distant supervision throughout and no noted LOB throughout. Seated rest break upon completion. 01/26/2020 10:38 AM Kylie Sanchez, PT WC Level of Assist Setup 01/25/2020 8:44 AM Neli Argueta PTA Distance Traveled in WC 100 01/25/2020 8:44 AM Neli Argueta PTA WC Analysis Pt requires asst to unlock WC brakes asst with turns while propelling WC 01/25/2020 8:44 AM Neli Argueta PTA MEDICAL DECISION MAKING/PLAN Problem List: 1. End-stage osteoarthritis of the left hip, status post left total hip arthroplasty 01/12/2020. Providing local wound care, monitoring analgesic regimen for efficacy and adverse effects. Pain adequately managed. Providing education regarding hip precautions. 2. End-stage renal disease, on hemodialysis. Nephrology follow up and recommendations noted and appreciated. 3. Paroxysmal atrial fibrillation. jyoti Aguirre. 4. Dementia. 5. Anemia. 6. Previous history of stroke. 7. Dyslipidemia. Lipitor. 8. Hypertension. Low BP noted. Saline bolus ordered over the weekend. 9. Restless legs syndrome. Requip. 10. Bladder outlet obstruction related to prostatic hypertrophy. 11. History of gout. Zyloprim. No noted acute joint flares. 12. 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 Modified diet requested, considering MBS. Monitoring for clinical signs of aspiration. 13. Bladder/bowel: Continent. Last BM 01/25. Signed: MIKE ZAMORA MD 01/26/2020 5:02 PM CDT * Carmen Blackman MD - 01/26/2020 4:40 PM CDT Nephrology Progress Note Ferdinand Rasmussen [id number] Subjective: Patient seen and examined, denies fever, chills, chest pain, sob, cough, changes in appetite, N/V, diarrhea, abdominal pain, less left hip pain Objective: Vital signs: Vitals: 01/25/20 2210 01/26/20 0725 01/26/20 1655 01/26/20 1939 BP: 100/49 112/56 128/62 116/59 Pulse: 73 77 77 68 Resp: 18 18 16 Temp: 99.1 ??F (37.3 ??C) 98.5 ??F (36.9 ??C) 98.6 ??F (37 ??C) TempSrc: Oral Oral Oral SpO2: 97% 99% 100% 99% Weight: Height: Intake/Output Summary (Last 24 hours) at 01/27/2020 0540 Last data filed at 01/26/2020 1800 Gross per 24 hour Intake 840 ml Output -- Net 840 ml Intake/Output last 3 shifts: I/O last 3 completed shifts: In: 3440 [P.O.:3440] Out: 1999 [Other:1999] Intake/Output this shift: No intake/output data recorded. Weight: Wt Readings from Last 3 Encounters: 01/23/20 133 lb 6.4 oz (60.5 kg) 05/27/19 136 lb (61.7 kg) Medications: Scheduled/Continuous Medications Scheduled Medication Ordered Dose/Rate, Route, Frequency Last Action allopurinol (ZYLOPRIM) tablet 100 mg 100 mg, PO, Nightly Given, 100 mg at 01/25 2011 Apixaban (ELIQUIS) tablet 2.5 mg 2.5 mg, PO, BID Given, 2.5 mg at 01/25 2011 atorvastatin (LIPITOR) tablet 20 mg 20 mg, PO, Nightly Given, 20 mg at 01/25 2011 dilTIAZem CD (CARDIZEM CD) 24 hr capsule 120 mg 120 mg, PO, Once a day Given, 120 mg at 01/25 921 docusate sodium (COLACE) capsule 100 mg 100 mg, PO, BID Given, 100 mg at 01/25 2011 famotidine (PEPCID) tablet 20 mg 20 mg, PO, Q48H Given, 20 mg at 01/24 810 fluconazole (DIFLUCAN) tablet 200 mg 200 mg, PO, Once a day Given, 200 mg at 01/25 922 furosemide (LASIX) tablet 80 mg 80 mg, PO, BID AC Given, 80 mg at 01/25 1734 heparin (porcine) injection 1,000 Units 1,000 Units, IV, TThSat w/ Dialysis Given, 1,000 Units at 01/24 1346 polyethylene glycol (MIRALAX) packet 17 g 17 g, PO, Once a day Given, 17 g at 01/25 922 rOPINIRole (REQUIP) tablet 0.5 mg 0.5 mg, PO, Nightly Given, 0.5 mg at 01/25 2011 sevelamer carbonate (RENVELA) tablet 800 mg 800 mg, PO, TID with meals Given, 800 mg at 01/25 1734 sodium chloride 0.9 % infusion 200 mL 200 mL, CI, Once Ordered tamsulosin (FLOMAX) 24 hr capsule 0.4 mg 0.4 mg, PO, Nightly Given, 0.4 mg at 01/25 2011 Current Facility-Administered Medications: ??? acetaminophen (TYLENOL) tablet 650 mg, 650 mg, Oral, Q6H PRN, Nicole Magaña MD, 650 mg at 01/22/205 ??? allopurinol (ZYLOPRIM) tablet 100 mg, 100 mg, Oral, Nightly, Mike Zamora MD, 100 mg at 01/26/202010 ??? Apixaban (ELIQUIS) tablet 2.5 mg, 2.5 mg, Oral, BID, Nicole Magaña MD, 2.5 mg at 01/26/202010 ??? atorvastatin (LIPITOR) tablet 20 mg, 20 mg, Oral, Nightly, Nicole Magaña MD, 20 mg at 01/26/202010 ??? Benzocaine-Menthol (CEPACOL) 1 lozenge, 1 lozenge, Oral, TID PRN, Nicole Magaña MD, 1 lozenge at 01/25/20 0758 ??? bisacodyl (DULCOLAX) suppository 10 mg, 10 mg, Rectal, Daily PRN, Nicole Magaña MD ??? dilTIAZem CD (CARDIZEM CD) 24 hr capsule 120 mg, 120 mg, Oral, Once a day, Carmen Blackman MD, 120 mg at 01/26/20 0921 ??? diphenhydrAMINE (BENADRYL) tablet 25 mg, 25 mg, Oral, Q6H PRN, Nicole Magaña MD ??? docusate sodium (COLACE) capsule 100 mg, 100 mg, Oral, BID, Nicole Magaña MD, 100 mg at 01/26/202010 ??? famotidine (PEPCID) tablet 20 mg, 20 mg, Oral, Q48H, Nicole Magaña MD, 20 mg at 01/25/20 0810 ??? fluconazole (DIFLUCAN) tablet 200 mg, 200 mg, Oral, Once a day, Mike Zamora MD, 200 mg at 01/26/20921 ??? furosemide (LASIX) tablet 80 mg, 80 mg, Oral, BID AC, Carmen Blackman MD, 80 mg at 01/26/20 1734 ??? heparin (porcine) injection 1,000 Units, 1,000 Units, Intravenous, TThSat w/ Dialysis, Carmen Blackman MD, 1,000 Units at 01/25/20 1346 ??? HYDROcodone-acetaminophen (NORCO) 5-325 MG per tablet 1 tablet, 1 tablet, Oral, Q6H PRN, 1 tablet at 01/25/20 1226 OR HYDROcodone-acetaminophen (LORCET PLUS) 10-325 MG per tablet 1 tablet, 1 tablet, Oral, Q6H PRN, Nicole Magaña MD, 1 tablet at 01/22/20 1832 ??? ondansetron ODT (ZOFRAN-ODT) disintegrating tablet 4 mg, 4 mg, Oral, Q6H PRN, Nicole Magaña MD ??? polyethylene glycol (MIRALAX) packet 17 g, 17 g, Oral, Once a day, Nicole Magaña MD, 17 g at 01/26/20921 ??? rOPINIRole (REQUIP) tablet 0.5 mg, 0.5 mg, Oral, Nightly, Nicole Magaña MD, 0.5 mg at 01/26/202010 ??? sevelamer carbonate (RENVELA) tablet 800 mg, 800 mg, Oral, TID with meals, Nicole Magaña MD, 800 mg at 01/26/20 1734 ??? sodium chloride 0.9 % infusion 0-500 mL, 0-500 mL, Intravenous (Continuous Infusion), PRN During Dialysis, Carmen Blackman MD ??? sodium chloride 0.9 % infusion 200 mL, 200 mL, Intravenous (Continuous Infusion), Once, Carmen Curtis MD ??? tamsulosin (FLOMAX) 24 hr capsule 0.4 mg, 0.4 mg, Oral, Nightly, Nicole Magaña MD, 0.4 mg at 01/26/202010 ??? acetaminophen ??? Benzocaine-Menthol ??? bisacodyl ??? diphenhydrAMINE ??? HYDROcodone-acetaminophen OR HYDROcodone-acetaminophen ??? ondansetron ODT ??? sodium chloride Physical Exam: General: awake and alert. In NAD Lungs: CTA B/L Heart: RRR, S1 and S2 without rubs Abdomen: Soft, NT/ND, + BS Ext: Without edema Labs: Recent Labs Lab Units 01/25/20121701/24/20 03301/21/20 0530 SODIUM MMOL/L BLOOD mmol/L -- 136 138 POTASSIUM MMOL/L BLOOD mmol/L 5.3* 4.8 4.5 CHLORIDE mmol/L -- 98 99 CO2 mmol/L -- 29 BUN MG/DL BLOOD mg/dL -- 32* 29* CREATININE mg/dL -- 5.84* 4.52* GLUCOSE MG/DL BLOOD mg/dL -- 96 115* CALCIUM MG/DL BLOOD mg/dL -- 8.8 8.9 ANION GAP BLOOD mmol/L -- 10 10 Recent Labs Lab Units 01/25/20121701/24/20 0333 01/21/20 0530 SODIUM MMOL/L BLOOD mmol/L -- 136 138 POTASSIUM MMOL/L BLOOD mmol/L 5.3* 4.8 4.5 CHLORIDE mmol/L -- 98 99 CO2 mmol/L -- 29 BUN MG/DL BLOOD mg/dL -- 32* 29* CREATININE mg/dL -- 5.84* 4.52* GLUCOSE MG/DL BLOOD mg/dL -- 96 115* CALCIUM MG/DL BLOOD mg/dL -- 8.8 8.9 Recent Labs Lab Units 01/25/20121701/24/20 0333 01/21/20 0530 SODIUM MMOL/L BLOOD mmol/L -- 136 138 POTASSIUM MMOL/L BLOOD mmol/L 5.3* 4.8 4.5 CHLORIDE mmol/L -- 98 99 CO2 mmol/L -- 28 29 BUN MG/DL BLOOD mg/dL -- 32* 29* CREATININE mg/dL -- 5.84* 4.52* GLUCOSE MG/DL BLOOD mg/dL -- 96 115* CALCIUM MG/DL BLOOD mg/dL -- 8.8 8.9 Recent Labs Lab Units 01/24/20 0333 01/21/20 0530 WBC X(10)9/L BLOOD x10E9/L 6.4 5.3 HGB GM/DL BLOOD gm/dL 7.8* 8.3* HCT % BLOOD % 24.9* 26.4* PLT CT X(10)9/L BLOOD x10E9/L 283 226 Assessment/ Plan: ESRD, on IHD TTS, cont dialysis HTN, BP is soft now, BP medications adjusted Anemia due to CKD Advanced arthritis left hip underwent left hip arthoplasty History of recurrent volume overload, now stable on UF History of recurrent hyperkalemia, due to ESRD DM CARMEN BLACKMAN MD Office [phone] * Nicole Magaña MD - 01/25/2020 8:54 PM CDT Progress notes CHIEF COMPLAINT Active Problems: Osteoarthritis Subjective: (01/21) Patient seen in during PT time and after in his room .Patient mildly confused ,not in distress Patient stated had good night sleep , no pain. Denies dizziness, BP droping to 78/47 mm/Hg , pULSE 63 MIN last Creatinine from 01/20 was 4.52 with BUN 29 ; Hb 8.3,Plt 226 . Left hip lyric on no drainage no discharge 01/22 Patient seen in during PT time and after in his room .Patient mildly confused ,not in distress Patient stated had good night sleep , no pain. Denies dizziness, BP 78/47 and now 100/54 mm/Hg , last Creatinine from 01/20.Yesterday had HD.was 4.52 with BUN 29 ; Hb 8.3,Plt 226 . Left hip lyric on no drainage no discharge 01/23 Patient seen and evaluated on daily rounds. No overnight events reported. Patient has been participating with therapy and is doing well. Pt seen today sitting up in wheelchair. Pt denies pain at thistime, well controlled with current medications. Slept well and appetite good. Last BM 01/23/2020, noissues. Voiding well. Patient denies any chest pain, palpitations, shortness of breath, cough, abdominal pain, nausea and vomiting, or constipation. Pt reports trouble with swallowing food regular food, so his diet has been modified by the dietitian, but remains on thin liquids. Pt also complained of a sore throat so lozenges were ordered Afebrile 98 BP 133/67 HR 69 Labs reviewed. Reviewed care with patient and RN. No other needs or concerns expressed at this time. 01/24 Patient seen and evaluated on daily rounds. No overnight events reported. Patient has been participating with therapy and is doing well. Pt seen today laying in bed, during dialysis. Pt denies pain at this time, well controlled with current medications. Slept well and appetite good. Last BM 01/22, no issues. Voiding well. Patient denies any chest pain, palpitations, shortness of breath, cough, abdominal pain, nausea and vomiting, or constipation. Afebrile 98.6 BP 99/64 HR 84 Labs reviewed. Reviewed care with patient and RN. No other needs or concerns expressed at this time. History of Present illness The patient is a 74 y.o. y/o male with history of DM, HTN, ESRD on HD, Dementia and placement rightdeep brachial vein arteriovenous fistula 10/20/2019 and with advanced arthritis left hip underwent left hip arthoplasty by Dr. Agudelo currently here for therapy Todays chief Complains Hip pain Ok on pain meds constipation Duration of problems- Intensity Type Associated symptoms Aggrevating/relieving factors History also obtained from review of patients previous acute hospitalization chart, current rehabilitation chart , discussion with family members in the room and discussion with nursing staff taking care of the patient. Review of Systems General: no weight loss, no fever, no chills, no anorexia Skin: no rash Eyes: no blurry vision Ears/Nose/Throat: no nasal congestion, no sore throat Respiratory: no cough, no dyspnea, no wheezing Cardiovascular: no chest pain, no ankle swelling Gastrointestinal: no nausea, no vomiting, no diarrhea, no constipation, no abdominal pain. No melena, no bright red blood per rectum Genitourinary: no dysuria, no hematuria Musculoskeletal: no joint pain, no myalgia, no muscle weakness Neurologic: no seizures, no tremors, no fainting, no focal weakness , tingling or numbness Hematologic/Lymphatic: no abnormal bleeding, no abnormal bruising Endocrine: no heat or cold intolerance, no polydipsia, no polyuria Psychiatric: no anxiety, no depression Allergy/Immunology: no seasonal allergies, no joint stiffness in morning Review of ssytems pertinent as above and all the other 14 organ systems are negative Past Medical History Past Medical History: Diagnosis Date ??? Diabetes mellitus ??? Diabetes mellitus 05/12/2019 ??? End stage renal failure on dialysis 05/12/2019 New to dialysis ??? Hypertension ??? Other abnormal clinical findings ??? Seroma 05/12/2019 Proximal Left thigh 60 x 23 x39 mm by US Past Surgical History No past surgical history on file. Allergies No Known Allergies Home Medications Prior to Admission medications Medication Sig Start Date End Date Taking? Authorizing Provider acetaminophen (TYLENOL) 325 MG tablet 1 tablet (325 mg total) by PO/Per Tube route every 6 (six) hours as needed for mild pain (1 - 3) or Temp > or equal to 101F (38.3C). 05/28/19 Florencia Moulton MD allopurinol (ZYLOPRIM) 100 MG tablet Take 1 tablet (100 mg total) by mouth daily. 05/28/19 Florencia Moulton MD atorvastatin (LIPITOR) 20 MG tablet Take 1 tablet (20 mg total) by mouth daily. 05/28/19 Florencia Moulton MD Diclofenac Sodium (VOLTAREN) 1 % gel Apply 2 g topically 2 (two) times a day. 05/28/19 Florencia Moulton MD docusate sodium (COLACE) 100 MG capsule Take 1 capsule (100 mg total) by mouth daily. 05/28/19 MD Nico donepezil (ARICEPT) 10 MG tablet Take 1 tablet (10 mg total) by mouth nightly. 05/28/19 Florencia Moulton MD folic acid (FOLVITE) 1 MG tablet Take 1 tablet (1 mg total) by mouth daily. 05/28/19 Florencia Moulton MD furosemide (LASIX) 80 MG tablet Take 1 tablet (80 mg total) by mouth 2 (two) times a day diuretic. 05/28/19 Florencia Moulton MD lidocaine (LIDOCARE) 4 % patch patch Place 2 patches on the skin daily. 05/28/19 Florencia Moulton MD oxyCODONE-acetaminophen (PERCOCET) 5-325 MG per tablet Take 1 tablet by mouth every 6 (six) hours as needed for moderate pain (4 - 6). Max Daily Amount: 4 tablets 05/28/19 Florencia Moulton MD rOPINIRole (REQUIP) 0.5 MG tablet Take 1 tablet (0.5 mg total) by mouth Three times per week with dialysis. 05/29/19 Florencia Moulton MD tamsulosin (FLOMAX) 0.4 MG capsule Take 1 capsule (0.4 mg total) by mouth nightly. 05/28/19 Florencia Moulton MD CURRENT Medications Current Facility-Administered Medications: ??? acetaminophen (TYLENOL) tablet 650 mg, 650 mg, Oral, Q6H PRN, Nicole Magaña MD, 650 mg at 01/22/205 ??? allopurinol (ZYLOPRIM) tablet 100 mg, 100 mg, Oral, Nightly, Mike Zamora MD, 100 mg at 01/26/202010 ??? Apixaban (ELIQUIS) tablet 2.5 mg, 2.5 mg, Oral, BID, Nicole Magaña MD, 2.5 mg at 01/26/202010 ??? atorvastatin (LIPITOR) tablet 20 mg, 20 mg, Oral, Nightly, Nicole Magaña MD, 20 mg at 01/26/202010 ??? Benzocaine-Menthol (CEPACOL) 1 lozenge, 1 lozenge, Oral, TID PRN, Nicole Magaña MD, 1 lozenge at 01/25/20 0758 ??? bisacodyl (DULCOLAX) suppository 10 mg, 10 mg, Rectal, Daily PRN, Nicole Magaña MD ??? dilTIAZem CD (CARDIZEM CD) 24 hr capsule 120 mg, 120 mg, Oral, Once a day, Carmen Blackman MD, 120 mg at 01/26/20 0921 ??? diphenhydrAMINE (BENADRYL) tablet 25 mg, 25 mg, Oral, Q6H PRN, Nicole Magaña MD ??? docusate sodium (COLACE) capsule 100 mg, 100 mg, Oral, BID, Nicole Magaña MD, 100 mg at 01/26/202010 ??? famotidine (PEPCID) tablet 20 mg, 20 mg, Oral, Q48H, Nicole Magaña MD, 20 mg at 01/25/20 0810 ??? fluconazole (DIFLUCAN) tablet 200 mg, 200 mg, Oral, Once a day, Mike Zamora MD, 200 mg at 01/26/20921 ??? furosemide (LASIX) tablet 80 mg, 80 mg, Oral, BID AC, Carmen Blackman MD, 80 mg at 01/26/20 1734 ??? heparin (porcine) injection 1,000 Units, 1,000 Units, Intravenous, TThSat w/ Dialysis, Carmen Blackman MD, 1,000 Units at 01/25/20 1346 ??? HYDROcodone-acetaminophen (NORCO) 5-325 MG per tablet 1 tablet, 1 tablet, Oral, Q6H PRN, 1 tablet at 01/25/20 1226 OR HYDROcodone-acetaminophen (LORCET PLUS) 10-325 MG per tablet 1 tablet, 1 tablet, Oral, Q6H PRN, Nicole Magaña MD, 1 tablet at 01/22/20 1832 ??? ondansetron ODT (ZOFRAN-ODT) disintegrating tablet 4 mg, 4 mg, Oral, Q6H PRN, Nicole Magaña MD ??? polyethylene glycol (MIRALAX) packet 17 g, 17 g, Oral, Once a day, Nicole Magaña MD, 17 g at 01/26/20921 ??? rOPINIRole (REQUIP) tablet 0.5 mg, 0.5 mg, Oral, Nightly, Nicole Magaña MD, 0.5 mg at 01/26/202010 ??? sevelamer carbonate (RENVELA) tablet 800 mg, 800 mg, Oral, TID with meals, Nicole Magaña MD, 800 mg at 01/26/20 1734 ??? sodium chloride 0.9 % infusion 0-500 mL, 0-500 mL, Intravenous (Continuous Infusion), PRN During Dialysis, Carmen Blackman MD ??? sodium chloride 0.9 % infusion 200 mL, 200 mL, Intravenous (Continuous Infusion), Once, Carmen Curtis MD ??? tamsulosin (FLOMAX) 24 hr capsule 0.4 mg, 0.4 mg, Oral, Nightly, Nicole Magaña MD, 0.4 mg at 01/26/202010 Social History reports that he has quit smoking. He does not have any smokeless tobacco history on file. Alcohol use questions deferred to the physician. Denies smoking, alcohol or illicit drugs currently Family History No family history on file. No known history of thromboembolism Physical Exam Vital Signs: Temp: [98.5 ??F (36.9 ??C)-99.1 ??F (37.3 ??C)] 98.6 ??F (37 ??C) Pulse: [68-77] 68 Resp: [16-18] 16 BP: (100-128)/(49-62) 116/59 I/O Intake/Output Summary (Last 24 hours) at 01/26/20202053 Last data filed at 01/26/2020 1800 Gross per 24 hour Intake 840 ml Output -- Net 840 ml POC Glucose POC Glucose 01/25/203 150 Weights (last 3 days) Date/Time Weight 01/23/20 0520 133 lb 6.4 oz (60.5 kg) WEIGHTS 133 lb 6.4 oz (60.5 kg) General appearance: awake, alert, cooperative, no distress, MILDLY Confused HEENT: Normocephalic, No icterus, No oral lesions, Oral and nasal mucosa moist Neck: Supple, no lymphadenopathy Eyes: EOMI, Conjunctiva normal, No discharge Cardiovascular: s1-s2 audible, Normal heart rate, Normal rhythm, No murmurs, No rubs, No gallops Respiratory: Normal breath sounds, No respiratory distress, No wheezing, No rhonchi, No rales, No chest tenderness. GI: Bowel sounds normal, Soft, No tenderness, No rebound or guarding, No masses. Abdomen: soft without mass, non-tender, with normal bowel sounds, +/- Feeding Tube External Genitalia not examined, groin Extremities: no clubbing, cyanosis or edema, no calf tenderness Musculoskeletal:no swelling of joints.no redness, FROM otherjoints Psychologic: Mood and affect appropriate, no suicidal ideation. Skin: No rash, swelling or erythema identified . 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 No clonus Gait not tested ? Please see height, weight, and BP reported elsewhere as part of this encounter Labs CBC with Differential: Lab Results Component Value Date WBC 6.4 01/24/2020 HGB 7.8 (L) 01/24/2020 HCT 24.9 (L) 01/24/2020 PLT 283 01/24/2020 MCV 106.4 (H) 01/24/2020 MCH 33.3 01/24/2020 MCHC 31.3 01/24/2020 RDW 12.4 01/24/2020 [ BMP: Lab Results Component Value Date NA 136 01/24/2020 K 5.3 (H) 01/25/2020 CL 98 01/24/2020 CO2 28 01/24/2020 BUN 32 (H) 01/24/2020 CREATININE 5.84 (H) 01/24/2020 GLUCOSE 96 01/24/2020 CALCIUM 8.8 01/24/2020 ANIONGAP 10 01/24/2020 MG/PHOS: No results found for: MG, PHOS CKMB: No components found for: CKMB;2 PT/INR: No results found for: LABPROT, INR CMP: Lab Results Component Value Date NA 136 01/24/2020 K 5.3 (H) 01/25/2020 CL 98 01/24/2020 CO2 28 01/24/2020 BUN 32 (H) 01/24/2020 CREATININE 5.84 (H) 01/24/2020 GLUCOSE 96 01/24/2020 CALCIUM 8.8 01/24/2020 ALBUMIN 3.5 01/24/2020 ANIONGAP 10 01/24/2020 LFT's: No results found for: ALB, PROT Ionized Calcium: No components found for: IONCA ABG: No results found for: PHART, QEF2PEE, PO2ART, PGB2NSO, BEART, [id number] HgBA1c: No results found for: HGBA1C Lipid Panel: No results found for: CHOL, TRIG, HDL TSH: No results found for: TSH IMAGING STUDIES & OTHER STUDIES Assessment and plan @ADMDXS@ Active Problems: Osteoarthritis Advanced left hip arthritis ??S/p left hip arthroplasty F/u incision On Eliquis ( A Fib) Pain control Therapy ESRD HD Consult renal follow up with waxer floor MD Carmen Olea 01/21 CMP on Friday Chronic fluid overload Despite dialysis On lasix (01/21 BUN29; creatinine 4.52) Hypertension BP low on, diltiazem, lasix DC lisinopril Dyslipidemia -Lipitor Gout Allopurinol F/U ??Diabetes mellitus--diet??controlled Accu, SSI Atrial fibrillation eliquis for atrial fibrillation Not on rate control F/U daily Hypotension (01/22) NS 250 ml x 1 now. Anemia with Hb 8.3 fup with cbc on Friday Social service to work on discharge planning Hyperkalemia due to ESRD, K stable Anemia, probably related to his CKD, F/u Dementia Continue aricept Restless leg requip HLD Statin Pain management Today's pain score 3 FEN. Nutrition consult for evaluation of nutritional status and the best diet. And for BMI evaluation and education regarding maintaining a healthy BMI Bladder management Voiding ok Bowel management . Titrate bowel medications for constipation/diarrhea. Skin. Nursing to address skin care throughout stay. Turn every 2 hrs Sleep. Monitor sleep-wake cycle. High Fall risk- Fall precautions GI Prophylaxis: DVT Prophylaxis: Full Resuscitation Comprehensive Rehab Program (including but not limited to): --Nursing: working on bowel and bladder continence, skin integrity, carry over from therapies, environmental safety, and providing patient and family education. --Physical and Occupational Therapy: working on strength, endurance, balance, gait, and technique to improve safety and independence with ADLs and Mobility. --ST: working on oral-motor control, executive skills, memory, orientation, and cognitive skills. --Lion Tamer: discharge plans in the context of social, family, and discharge needs to help coordinate a safe discharge. --Neuropsychology (if applicable): tracking cognitive progress, evaluate memory, behavior, and cognitive function. guide patient and team toward better outcomes through understanding of behavioral and cognitive impairments and the obstacles that manifest by them --Rehabilitation Physician: to determine rehabilitation needs medical rehabilitation needs, will beseen by a kitman at a minimum of 3 times a week. The rehabilitation physician will coordinate care and help manage/prevent complications as a result of the patient???s illness and impairments The patient will receive 24 hour/day rehabilitation nursing supervision along with medical oversight by the medical and rehabilitation physicians to monitor for complications, changes in status, and determine the most appropriate medications to optimize function. The medical team will manage comorbidities and minimize complications such as dehydration, hypoglycemia, aspiration, pneumonia, uncontrolled BP, skin breakdown, contractures, and pain. In combination with intensive, comprehensive and multidisciplinary therapies to optimize function and long-term physical, cognitive, emotional and medical well-being. The patient will expected to participate and receive intensive therapy (an average of 3 hours per day of an average of 5 days weekly) not available in other settings in the inpatient rehabilitation program. The patient???s care will be coordinated through an interdisciplinary team with frequent steam hoist operator interactions and weekly conferences. An individualized plan of care with a minimum of two rehab therapies will be developed for the patient. Please refer to the Storeroom Attendant???s Post Admission Note determining the medical necessity as outlined in the [facility] documents to support admission for Acute Inpatient Rehabilitation Electronically signed by: NICOLE MAGAÑA MD, 01/26/2020 8:54 PM CDT CC: No primary care provider on file. * Carmen Blackman MD - 01/25/2020 5:01 PM CDT Nephrology Progress Note Ferdinand Rasmussen [id number] Subjective: Patient denies fever, chills, chest pain, sob, cough, changes in appetite, N/V, diarrhea, abdominalpain, still c/o left hip pain Objective: Vital signs: Vitals: 01/25/20 1700 01/25/20 1704 01/25/20 1710 01/25/20 2210 BP: 115/57 (!) 155/60 150/61 100/49 Pulse: 78 83 79 73 Resp: 18 18 Temp: 98 ??F (36.7 ??C) 99.1 ??F (37.3 ??C) TempSrc: Oral Oral SpO2: 98% 97% Weight: Height: Intake/Output Summary (Last 24 hours) at 01/26/2020 0101 Last data filed at 01/25/2020 1800 Gross per 24 hour Intake 2600 ml Output 2350 ml Net 250 ml Intake/Output last 3 shifts: I/O last 3 completed shifts: In: 3440 [P.O.:3440] Out: 2650 [Other:2000] Intake/Output this shift: No intake/output data recorded. Weight: Wt Readings from Last 3 Encounters: 01/23/20 133 lb 6.4 oz (60.5 kg) 01/30/20 136 lb (61.7 kg) Medications: Scheduled/Continuous Medications Scheduled Medication Ordered Dose/Rate, Route, Frequency Last Action allopurinol (ZYLOPRIM) tablet 100 mg 100 mg, PO, Nightly Given, 100 mg at 01/24 2029 Apixaban (ELIQUIS) tablet 2.5 mg 2.5 mg, PO, BID Given, 2.5 mg at 01/24 2029 atorvastatin (LIPITOR) tablet 20 mg 20 mg, PO, Nightly Given, 20 mg at 01/24 2029 dilTIAZem CD (CARDIZEM CD) 24 hr capsule 120 mg 120 mg, PO, Once a day Ordered docusate sodium (COLACE) capsule 100 mg 100 mg, PO, BID Given, 100 mg at 01/24 2029 famotidine (PEPCID) tablet 20 mg 20 mg, PO, Q48H Given, 20 mg at 01/24 810 fluconazole (DIFLUCAN) tablet 200 mg 200 mg, PO, Once a day Given, 200 mg at 01/24 811 furosemide (LASIX) tablet 80 mg 80 mg, PO, BID AC Given, 80 mg at 01/23 155 heparin (porcine) injection 1,000 Units 1,000 Units, IV, TThSat w/ Dialysis Given, 1,000 Units at 01/24 1346 polyethylene glycol (MIRALAX) packet 17 g 17 g, PO, Once a day Given, 17 g at 01/24 811 rOPINIRole (REQUIP) tablet 0.5 mg 0.5 mg, PO, Nightly Given, 0.5 mg at 01/24 2029 sevelamer carbonate (RENVELA) tablet 800 mg 800 mg, PO, TID with meals Given, 800 mg at 01/24 1721 sodium chloride 0.9 % infusion 200 mL 200 mL, CI, Once Ordered tamsulosin (FLOMAX) 24 hr capsule 0.4 mg 0.4 mg, PO, Nightly Given, 0.4 mg at 01/24 2029 Current Facility-Administered Medications: ??? acetaminophen (TYLENOL) tablet 650 mg, 650 mg, Oral, Q6H PRN, Nicole Magaña MD, 650 mg at 01/22/20 2145 ??? allopurinol (ZYLOPRIM) tablet 100 mg, 100 mg, Oral, Nightly, Abna A Raleigh, MD, 100 mg at 01/25/202028 ??? Apixaban (ELIQUIS) tablet 2.5 mg, 2.5 mg, Oral, BID, Nicole Magaña MD, 2.5 mg at 01/25/202028 ??? atorvastatin (LIPITOR) tablet 20 mg, 20 mg, Oral, Nightly, Nicole Magaña MD, 20 mg at 01/25/202028 ??? Benzocaine-Menthol (CEPACOL) 1 lozenge, 1 lozenge, Oral, TID PRN, Nicole Magaña MD, 1 lozenge at 01/25/20 0758 ??? bisacodyl (DULCOLAX) suppository 10 mg, 10 mg, Rectal, Daily PRN, Nicole Magaña MD ??? dilTIAZem CD (CARDIZEM CD) 24 hr capsule 120 mg, 120 mg, Oral, Once a day, Carmen Blackman MD ??? diphenhydrAMINE (BENADRYL) tablet 25 mg, 25 mg, Oral, Q6H PRN, Nicole Magaña MD ??? docusate sodium (COLACE) capsule 100 mg, 100 mg, Oral, BID, Nicole Magaña MD, 100 mg at 01/25/202028 ??? famotidine (PEPCID) tablet 20 mg, 20 mg, Oral, Q48H, Nicole Magaña MD, 20 mg at 01/25/20 0810 ??? fluconazole (DIFLUCAN) tablet 200 mg, 200 mg, Oral, Once a day, Mike Zamora MD, 200 mg at 01/25/20 0811 ??? furosemide (LASIX) tablet 80 mg, 80 mg, Oral, BID AC, Carmen Blackman MD, 80 mg at 01/24/20 1553 ??? heparin (porcine) injection 1,000 Units, 1,000 Units, Intravenous, TThSat w/ Dialysis, Carmen Blackman MD, 1,000 Units at 01/25/20 1346 ??? HYDROcodone-acetaminophen (NORCO) 5-325 MG per tablet 1 tablet, 1 tablet, Oral, Q6H PRN, 1 tablet at 01/25/20 1226 OR HYDROcodone-acetaminophen (LORCET PLUS) 10-325 MG per tablet 1 tablet, 1 tablet, Oral, Q6H PRN, Nicole Magaña MD, 1 tablet at 01/22/20 1832 ??? ondansetron ODT (ZOFRAN-ODT) disintegrating tablet 4 mg, 4 mg, Oral, Q6H PRN, Nicole Magaña MD ??? polyethylene glycol (MIRALAX) packet 17 g, 17 g, Oral, Once a day, Nicole Magaña MD, 17 g at 01/25/20 0811 ??? rOPINIRole (REQUIP) tablet 0.5 mg, 0.5 mg, Oral, Nightly, Nicole Magaña MD, 0.5 mg at 01/25/202028 ??? sevelamer carbonate (RENVELA) tablet 800 mg, 800 mg, Oral, TID with meals, Nicole Magaña MD, 800 mg at 01/25/20 172 ??? sodium chloride 0.9 % infusion 0-500 mL, 0-500 mL, Intravenous (Continuous Infusion), PRN During Dialysis, Carmen Blackman MD ??? sodium chloride 0.9 % infusion 200 mL, 200 mL, Intravenous (Continuous Infusion), Once, Carmen Curtis MD ??? tamsulosin (FLOMAX) 24 hr capsule 0.4 mg, 0.4 mg, Oral, Nightly, Nicole Magaña MD, 0.4 mg at 01/25/202028 ??? acetaminophen ??? Benzocaine-Menthol ??? bisacodyl ??? diphenhydrAMINE ??? HYDROcodone-acetaminophen OR HYDROcodone-acetaminophen ??? ondansetron ODT ??? sodium chloride Physical Exam: General: awake and alert. In NAD Lungs: CTA B/L Heart: RRR, S1 and S2 without rubs Abdomen: Soft, NT/ND, + BS Ext: Without edema Labs: Recent Labs Lab Units 01/25/20 1218 01/24/20 0333 01/21/20 0530 SODIUM MMOL/L BLOOD mmol/L -- 136 138 POTASSIUM MMOL/L BLOOD mmol/L 5.3* 4.8 4.5 CHLORIDE mmol/L -- 98 99 CO2 mmol/L -- 28 29 BUN MG/DL BLOOD mg/dL -- 32* 29* CREATININE mg/dL -- 5.84* 4.52* GLUCOSE MG/DL BLOOD mg/dL -- 96 115* CALCIUM MG/DL BLOOD mg/dL -- 8.8 8.9 ANION GAP BLOOD mmol/L -- 10 10 Recent Labs Lab Units 01/25/20121701/24/20 0333 01/21/20 0530 SODIUM MMOL/L BLOOD mmol/L -- 136 138 POTASSIUM MMOL/L BLOOD mmol/L 5.3* 4.8 4.5 CHLORIDE mmol/L -- 98 99 CO2 mmol/L -- 28 29 BUN MG/DL BLOOD mg/dL -- 32* 29* CREATININE mg/dL -- 5.84* 4.52* GLUCOSE MG/DL BLOOD mg/dL -- 96 115* CALCIUM MG/DL BLOOD mg/dL -- 8.8 8.9 Recent Labs Lab Units 01/25/20121701/24/20 0333 01/21/20 0530 SODIUM MMOL/L BLOOD mmol/L -- 136 138 POTASSIUM MMOL/L BLOOD mmol/L 5.3* 4.8 4.5 CHLORIDE mmol/L -- 98 99 CO2 mmol/L -- 28 29 BUN MG/DL BLOOD mg/dL -- 32* 29* CREATININE mg/dL -- 5.84* 4.52* GLUCOSE MG/DL BLOOD mg/dL -- 96 115* CALCIUM MG/DL BLOOD mg/dL -- 8.8 8.9 Recent Labs Lab Units 01/24/20 03301/21/20 0530 WBC X(10)9/L BLOOD x10E9/L 6.4 5.3 HGB GM/DL BLOOD gm/dL 7.8* 8.3* HCT % BLOOD % 24.9* 26.4* PLT CT X(10)9/L BLOOD x10E9/L 283 226 Assessment/ Plan: ESRD, on IHD TTS, cont dialysis HTN, BP is soft now, BP medications adjusted Anemia due to CKD Advanced arthritis left hip underwent left hip arthoplasty History of recurrent volume overload, now stable on UF History of recurrent hyperkalemia, due to ESRD DM CARMEN BLACKMAN MD Office [phone] * Mike Zamora MD - 01/25/2020 4:20 PM CDT REHAB INTERDISCIPLINARY PROGRESS NOTE Patient's Primary Care Physician: No primary care provider on file. Name: Ferdinand Rasmussen Age: 74 y.o. Chief Complaint/History of Present Illness Patient reports no new complaints. History of Present Illness Obtained from family/patient/staff. PFSHX: PMH: I have reviewed and there is no change Family: I have reviewed and there is no change Social: I have reviewed and there is no change No Known Allergies REVIEW OF SYSTEMS Odynophagia. EXAMINATION Vitals: 01/25/20 1500 01/25/20 1520 01/25/20 1540 01/25/20 1604 BP: 96/54 144/72 123/66 140/57 Pulse: 73 84 79 77 Resp: Temp: TempSrc: SpO2: Weight: Height: PHYSICAL EXAMINATION: GENERAL: Reveals a slender, alert, elderly gentleman, who is oriented x3. HEENT: Reveals a normocephalic, atraumatic head. He is edentulous. No noted tongue or buccal lesions. Noted placques on pharyngeal wall. No palpable cervical lymphadenopathy. Left submental non-tender chronic appearing nodule palpated. CARDIAC: Reveals a regular rate and rhythm. LUNGS: Clear to auscultation, although inspiratory effort is markedly diminished. CHEST: Tunneled catheter at right chest. ABDOMEN: Soft. Bowel sounds are present. : Unremarkable. EXTREMITIES: Reveals a well-healing right lateral thigh incision with lyric in place and an overlying gauze dressing. Homans are negative bilaterally. SKIN: Examination of the skin reveals no breakdown over the sacrum, occiput, or heels. NEUROLOGIC: Cranial nerves 2 through 12 appear to be intact. Motor examination reveals no pronator drift. Manual muscle testing reveals grade 4- strength of the upper extremities and at the left leg,he has grade 4- strength. At the right lower extremity, formal manual muscle testing was deferred proximally, but distally, he does appear to have grade 4- strength at the knee and ankle. Sensory testing yielded some equivocal responses distal to the ankles bilaterally, but overall, he does appearto have preserved pinprick on either side of the face, trunk, and extremities. Deep tendon reflexesare diminished throughout. No ankle clonus was elicited. Cerebellar examination was unremarkable. DATA/LAB/RADIOLOGY Meds: Current Facility-Administered Medications Medication Dose Route Frequency Provider Last Rate Last Dose ??? acetaminophen (TYLENOL) tablet 650 mg 650 mg Oral Q6H PRN Nicole Magaña MD 650 mg at 01/22/20 2145 ??? allopurinol (ZYLOPRIM) tablet 100 mg 100 mg Oral Nightly Mike Zamora MD ??? Apixaban (ELIQUIS) tablet 2.5 mg 2.5 mg Oral BID Nicole Magaña MD 2.5 mg at 01/25/20 0807 ??? atorvastatin (LIPITOR) tablet 20 mg 20 mg Oral Nightly Nicole Magaña MD 20 mg at 01/24/202058 ??? Benzocaine-Menthol (CEPACOL) 1 lozenge 1 lozenge Oral TID PRN Nicole Magaña MD 1 lozenge at 01/25/20 0758 ??? bisacodyl (DULCOLAX) suppository 10 mg 10 mg Rectal Daily PRN Nicole Magaña MD ??? dilTIAZem CD (CARDIZEM CD) 24 hr capsule 120 mg 120 mg Oral Once a day Carmen Blackman MD ??? diphenhydrAMINE (BENADRYL) tablet 25 mg 25 mg Oral Q6H PRN Nicole Magaña MD ??? docusate sodium (COLACE) capsule 100 mg 100 mg Oral BID Nicole Magaña MD 100 mg at 01/25/20 0810 ??? famotidine (PEPCID) tablet 20 mg 20 mg Oral Q48H Nicole Magaña MD 20 mg at 01/25/20 0810 ??? fluconazole (DIFLUCAN) tablet 200 mg 200 mg Oral Once a day Mike Zamora MD 200 mg at 01/25/20 0811 ??? furosemide (LASIX) tablet 80 mg 80 mg Oral BID AC Carmen Blackman MD 80 mg at 01/24/20 1553 ??? heparin (porcine) injection 1,000 Units 1,000 Units Intravenous TThSat w/ Dialysis Carmen Blackman MD 1,000 Units at 01/25/20 1346 ??? HYDROcodone-acetaminophen (NORCO) 5-325 MG per tablet 1 tablet 1 tablet Oral Q6H PRN Nicole Magaña MD 1 tablet at 01/25/20 1226 Or ??? HYDROcodone-acetaminophen (LORCET PLUS) 10-325 MG per tablet 1 tablet 1 tablet Oral Q6H PRN Nicole Magaña MD 1 tablet at 01/22/20 1832 ??? ondansetron ODT (ZOFRAN-ODT) disintegrating tablet 4 mg 4 mg Oral Q6H PRN Nicole Magaña MD ??? polyethylene glycol (MIRALAX) packet 17 g 17 g Oral Once a day Nicole Magaña MD 17 g at 01/25/20 0811 ??? rOPINIRole (REQUIP) tablet 0.5 mg 0.5 mg Oral Nightly Nicole Magaña MD 0.5 mg at 01/24/202058 ??? sevelamer carbonate (RENVELA) tablet 800 mg 800 mg Oral TID with meals Nicole Magaña MD 800 mg at 01/25/20 1221 ??? sodium chloride 0.9 % infusion 0-500 mL 0-500 mL Intravenous (Continuous Infusion) PRN During Dialysis Carmen Blackman MD ??? sodium chloride 0.9 % infusion 200 mL 200 mL Intravenous (Continuous Infusion) Once Carmen Blackman MD ??? tamsulosin (FLOMAX) 24 hr capsule 0.4 mg 0.4 mg Oral Nightly Nicole Magaña MD 0.4 mg at 01/24/202058 Labs: Lab Results Component Value Date WBC 6.4 01/24/2020 HGB 7.8 (L) 01/24/2020 HCT 24.9 (L) 01/24/2020 MCV 106.4 (H) 01/24/2020 PLT 283 01/24/2020 Lab Results Component Value Date GLUCOSE 96 01/24/2020 CALCIUM 8.8 01/24/2020 NA 136 01/24/2020 K 5.3 (H) 01/25/2020 CO2 28 01/24/2020 CL 98 01/24/2020 BUN 32 (H) 01/24/2020 CREATININE 5.84 (H) 01/24/2020 REVIEW OF FUNCTIONAL STATUS See Team Conference note. MEDICAL DECISION MAKING/PLAN Problem List: 1. End-stage osteoarthritis of the left hip, status post left total hip arthroplasty 01/12/2020. Providing local wound care, monitoring analgesic regimen for efficacy and adverse effects. Progressingvery well in therapies. Barriers to independence d/w team Plan discharge home on 02/01/20. 2. End-stage renal disease, on hemodialysis. Nephrology follow up and recommendations noted and appreciated. 3. Paroxysmal atrial fibrillation. Eliquis, 4. Dementia. 5. Anemia. 6. Previous history of stroke. 7. Dyslipidemia. Lipitor. 8. Hypertension. Low BP noted. Saline bolus ordered over the weekend. 9. Restless legs syndrome. Requip. 10. Bladder outlet obstruction related to prostatic hypertrophy. 11. History of gout. Zyloprim. No noted acute joint flares. 12. 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 Modified diet requested, considering MBS. Monitoring for clinical signs of aspiration. 13. Bladder/bowel: Continent. Last BM 01/22. Signed: MIKE ZAMORA MD 01/25/2020 4:20 PM CDT * Carmen Blackman MD - 01/24/2020 5:04 PM CDT Nephrology Progress Note Ferdinand Rasmussen [id number] Subjective: Patient denies fever, chills, chest pain, sob, cough, changes in appetite, N/V, diarrhea, abdominalpain, still c/o left hip pain Objective: Vital signs: Vitals: ?? 01/23/20 1630 01/23/204 01/24/20 0814 01/24/20 0858 BP: 144/60 113/68 135/63 114/53 Pulse: 76 72 82 84 Resp: ?? 14 19 ?? Temp: ?? 98.8 ??F (37.1 ??C) 98 ??F (36.7 ??C) ?? TempSrc: ?? Oral Tympanic ?? SpO2: ?? 100% 100% 100% Weight: ? Height: Weight: Wt Readings from Last 3 Encounters: 01/23/20 133 lb 6.4 oz (60.5 kg) 05/27/19 136 lb (61.7 kg) Medications: Scheduled/Continuous Medications Scheduled Medication Ordered Dose/Rate, Route, Frequency Last Action allopurinol (ZYLOPRIM) tablet 100 mg 100 mg, PO, Nightly Given, 100 mg at 01/24 2029 Apixaban (ELIQUIS) tablet 2.5 mg 2.5 mg, PO, BID Given, 2.5 mg at 01/24 2029 atorvastatin (LIPITOR) tablet 20 mg 20 mg, PO, Nightly Given, 20 mg at 01/24 2029 dilTIAZem CD (CARDIZEM CD) 24 hr capsule 120 mg 120 mg, PO, Once a day Ordered docusate sodium (COLACE) capsule 100 mg 100 mg, PO, BID Given, 100 mg at 01/24 2029 famotidine (PEPCID) tablet 20 mg 20 mg, PO, Q48H Given, 20 mg at 01/24 08 fluconazole (DIFLUCAN) tablet 200 mg 200 mg, PO, Once a day Given, 200 mg at 01/24 811 furosemide (LASIX) tablet 80 mg 80 mg, PO, BID AC Given, 80 mg at 01/23 155 heparin (porcine) injection 1,000 Units 1,000 Units, IV, TThSat w/ Dialysis Given, 1,000 Units at 01/24 1346 polyethylene glycol (MIRALAX) packet 17 g 17 g, PO, Once a day Given, 17 g at 01/24 811 rOPINIRole (REQUIP) tablet 0.5 mg 0.5 mg, PO, Nightly Given, 0.5 mg at 01/24 2029 sevelamer carbonate (RENVELA) tablet 800 mg 800 mg, PO, TID with meals Given, 800 mg at 01/24 1721 sodium chloride 0.9 % infusion 200 mL 200 mL, CI, Once Ordered tamsulosin (FLOMAX) 24 hr capsule 0.4 mg 0.4 mg, PO, Nightly Given, 0.4 mg at 01/24 2029 Current Facility-Administered Medications: ??? acetaminophen (TYLENOL) tablet 650 mg, 650 mg, Oral, Q6H PRN, Nicole Magaña MD, 650 mg at 01/22/202144 ??? allopurinol (ZYLOPRIM) tablet 100 mg, 100 mg, Oral, Nightly, Mike Zamora MD, 100 mg at 01/25/202028 ??? Apixaban (ELIQUIS) tablet 2.5 mg, 2.5 mg, Oral, BID, Nicole Magaña MD, 2.5 mg at 01/25/202028 ??? atorvastatin (LIPITOR) tablet 20 mg, 20 mg, Oral, Nightly, Nicole Magaña MD, 20 mg at 01/25/202028 ??? Benzocaine-Menthol (CEPACOL) 1 lozenge, 1 lozenge, Oral, TID PRN, Nicole Magaña MD, 1 lozenge at 01/25/20 0758 ??? bisacodyl (DULCOLAX) suppository 10 mg, 10 mg, Rectal, Daily PRN, Nicole Magaña MD ??? dilTIAZem CD (CARDIZEM CD) 24 hr capsule 120 mg, 120 mg, Oral, Once a day, Carmen Blackman MD ??? diphenhydrAMINE (BENADRYL) tablet 25 mg, 25 mg, Oral, Q6H PRN, Nicole Magaña MD ??? docusate sodium (COLACE) capsule 100 mg, 100 mg, Oral, BID, Nicole Magaña MD, 100 mg at 01/25/202028 ??? famotidine (PEPCID) tablet 20 mg, 20 mg, Oral, Q48H, Nicole Magaña MD, 20 mg at 01/25/20 0810 ??? fluconazole (DIFLUCAN) tablet 200 mg, 200 mg, Oral, Once a day, Mike Zamora MD, 200 mg at 01/25/20 0811 ??? furosemide (LASIX) tablet 80 mg, 80 mg, Oral, BID AC, Carmen Blackman MD, 80 mg at 01/24/20 1553 ??? heparin (porcine) injection 1,000 Units, 1,000 Units, Intravenous, TThSat w/ Dialysis, Carmen Blackman MD, 1,000 Units at 01/25/20 1346 ??? HYDROcodone-acetaminophen (NORCO) 5-325 MG per tablet 1 tablet, 1 tablet, Oral, Q6H PRN, 1 tablet at 01/25/20 1226 OR HYDROcodone-acetaminophen (LORCET PLUS) 10-325 MG per tablet 1 tablet, 1 tablet, Oral, Q6H PRN, Nicole Magaña MD, 1 tablet at 01/22/20 1832 ??? ondansetron ODT (ZOFRAN-ODT) disintegrating tablet 4 mg, 4 mg, Oral, Q6H PRN, Nicole Magaña MD ??? polyethylene glycol (MIRALAX) packet 17 g, 17 g, Oral, Once a day, Nicole Magaña MD, 17 g at 01/25/20 0811 ??? rOPINIRole (REQUIP) tablet 0.5 mg, 0.5 mg, Oral, Nightly, Nicole Magaña MD, 0.5 mg at 01/25/202028 ??? sevelamer carbonate (RENVELA) tablet 800 mg, 800 mg, Oral, TID with meals, Nicole Magaña MD, 800 mg at 01/25/20 1721 ??? sodium chloride 0.9 % infusion 0-500 mL, 0-500 mL, Intravenous (Continuous Infusion), PRN During Dialysis, Carmen Blackman MD ??? sodium chloride 0.9 % infusion 200 mL, 200 mL, Intravenous (Continuous Infusion), Once, Carmen Curtis MD ??? tamsulosin (FLOMAX) 24 hr capsule 0.4 mg, 0.4 mg, Oral, Nightly, Nicole Magaña MD, 0.4 mg at 01/25/202028 ??? acetaminophen ??? Benzocaine-Menthol ??? bisacodyl ??? diphenhydrAMINE ??? HYDROcodone-acetaminophen OR HYDROcodone-acetaminophen ??? ondansetron ODT ??? sodium chloride Physical Exam: General: awake and alert. In NAD Lungs: CTA B/L Heart: RRR, S1 and S2 without rubs Abdomen: Soft, NT/ND, + BS Ext: Without edema Labs: Labs: Lab Results Component Value Date ?? WBC 6.4 01/24/2020 ?? HGB 7.8 (L) 01/24/2020 ?? HCT 24.9 (L) 01/24/2020 ?? MCV 106.4 (H) 01/24/2020 ?? PLT 283 01/24/2020 Lab Results Component Value Date ?? GLUCOSE 96 01/24/2020 ?? CALCIUM 8.8 01/24/2020 ?? NA 136 01/24/2020 ?? K 4.8 01/24/2020 ?? CO2 28 01/24/2020 ?? CL 98 01/24/2020 ?? BUN 32 (H) 01/24/2020 ?? CREATININE 5.84 (H) 01/24/2020 ?? Assessment/ Plan: ESRD, on IHD TTS, cont dialysis HTN, BP is soft now, BP medications adjusted Anemia due to CKD Advanced arthritis left hip underwent left hip arthoplasty History of recurrent volume overload, now stable on UF History of recurrent hyperkalemia, due to ESRD DM CARMEN BLACKMAN MD Office [phone] * Dg House NP - 01/24/2020 4:24 PM CDT Progress notes [place] CHIEF COMPLAINT Active Problems: Osteoarthritis Subjective: (01/21) Patient seen in during PT time and after in his room .Patient mildly confused ,not in distress Patient stated had good night sleep , no pain. Denies dizziness, BP droping to 78/47 mm/Hg , pULSE 63 MIN last Creatinine from 01/20 was 4.52 with BUN 29 ; Hb 8.3,Plt 226 . Left hip lyric on no drainage no discharge 01/22 Patient seen in during PT time and after in his room .Patient mildly confused ,not in distress Patient stated had good night sleep , no pain. Denies dizziness, BP 78/47 and now 100/54 mm/Hg , last Creatinine from 01/20.Yesterday had HD.was 4.52 with BUN 29 ; Hb 8.3,Plt 226 . Left hip lyric on no drainage no discharge 01/23 Patient seen and evaluated on daily rounds. No overnight events reported. Patient has been participating with therapy and is doing well. Pt seen today sitting up in wheelchair. Pt denies pain at thistime, well controlled with current medications. Slept well and appetite good. Last BM 01/23/2020, noissues. Voiding well. Patient denies any chest pain, palpitations, shortness of breath, cough, abdominal pain, nausea and vomiting, or constipation. Pt reports trouble with swallowing food regular food, so his diet has been modified by the dietitian, but remains on thin liquids. Pt also complained of a sore throat so lozenges were ordered Afebrile 98 BP 133/67 HR 69 Labs reviewed. Reviewed care with patient and RN. No other needs or concerns expressed at this time. 01/24 Patient seen and evaluated on daily rounds. No overnight events reported. Patient has been participating with therapy and is doing well. Pt seen today laying in bed, during dialysis. Pt denies pain at this time, well controlled with current medications. Slept well and appetite good. Last BM 01/22, no issues. Voiding well. Patient denies any chest pain, palpitations, shortness of breath, cough, abdominal pain, nausea and vomiting, or constipation. Afebrile 98.6 BP 99/64 HR 84 Labs reviewed. Reviewed care with patient and RN. No other needs or concerns expressed at this time. History of Present illness The patient is a 74 y.o. y/o male with history of DM, HTN, ESRD on HD, Dementia and placement rightdeep brachial vein arteriovenous fistula 10/20/2019 and with advanced arthritis left hip underwent left hip arthoplasty by Dr. Agudelo currently here for therapy Todays chief Complains Hip pain Ok on pain meds constipation Duration of problems- Intensity Type Associated symptoms Aggrevating/relieving factors History also obtained from review of patients previous acute hospitalization chart, current rehabilitation chart , discussion with family members in the room and discussion with nursing staff taking care of the patient. Review of Systems General: no weight loss, no fever, no chills, no anorexia Skin: no rash Eyes: no blurry vision Ears/Nose/Throat: no nasal congestion, no sore throat Respiratory: no cough, no dyspnea, no wheezing Cardiovascular: no chest pain, no ankle swelling Gastrointestinal: no nausea, no vomiting, no diarrhea, no constipation, no abdominal pain. No melena, no bright red blood per rectum Genitourinary: no dysuria, no hematuria Musculoskeletal: no joint pain, no myalgia, no muscle weakness Neurologic: no seizures, no tremors, no fainting, no focal weakness , tingling or numbness Hematologic/Lymphatic: no abnormal bleeding, no abnormal bruising Endocrine: no heat or cold intolerance, no polydipsia, no polyuria Psychiatric: no anxiety, no depression Allergy/Immunology: no seasonal allergies, no joint stiffness in morning Review of ssytems pertinent as above and all the other 14 organ systems are negative Past Medical History Past Medical History: Diagnosis Date ??? Diabetes mellitus ??? Diabetes mellitus 05/12/2019 ??? End stage renal failure on dialysis 05/12/2019 New to dialysis ??? Hypertension ??? Other abnormal clinical findings ??? Seroma 05/12/2019 Proximal Left thigh 60 x 23 x39 mm by US Past Surgical History No past surgical history on file. Allergies No Known Allergies Home Medications Prior to Admission medications Medication Sig Start Date End Date Taking? Authorizing Provider acetaminophen (TYLENOL) 325 MG tablet 1 tablet (325 mg total) by PO/Per Tube route every 6 (six) hours as needed for mild pain (1 - 3) or Temp > or equal to 101F (38.3C). 05/28/19 Florencia Moulton MD allopurinol (ZYLOPRIM) 100 MG tablet Take 1 tablet (100 mg total) by mouth daily. 05/28/19 Florencia Moulton MD atorvastatin (LIPITOR) 20 MG tablet Take 1 tablet (20 mg total) by mouth daily. 05/28/19 Florencia Moulton MD Diclofenac Sodium (VOLTAREN) 1 % gel Apply 2 g topically 2 (two) times a day. 05/28/19 Florencia Moulton MD docusate sodium (COLACE) 100 MG capsule Take 1 capsule (100 mg total) by mouth daily. 05/28/19 MD Nico donepezil (ARICEPT) 10 MG tablet Take 1 tablet (10 mg total) by mouth nightly. 05/28/19 Florencia Moulton MD folic acid (FOLVITE) 1 MG tablet Take 1 tablet (1 mg total) by mouth daily. 05/28/19 Florencia Moulton MD furosemide (LASIX) 80 MG tablet Take 1 tablet (80 mg total) by mouth 2 (two) times a day diuretic. 05/28/19 Florencia Moulton MD lidocaine (LIDOCARE) 4 % patch patch Place 2 patches on the skin daily. 05/28/19 Florencia Moulton MD oxyCODONE-acetaminophen (PERCOCET) 5-325 MG per tablet Take 1 tablet by mouth every 6 (six) hours as needed for moderate pain (4 - 6). Max Daily Amount: 4 tablets 05/28/19 Florencia Moulton MD rOPINIRole (REQUIP) 0.5 MG tablet Take 1 tablet (0.5 mg total) by mouth Three times per week with dialysis. 05/29/19 Florencia Moulton MD tamsulosin (FLOMAX) 0.4 MG capsule Take 1 capsule (0.4 mg total) by mouth nightly. 05/28/19 Florencia Moulton MD CURRENT Medications Current Facility-Administered Medications: ??? acetaminophen (TYLENOL) tablet 650 mg, 650 mg, Oral, Q6H PRN, Nicole Magaña MD, 650 mg at 01/22/202144 ??? allopurinol (ZYLOPRIM) tablet 100 mg, 100 mg, Oral, Once a day, Nicole Magaña MD, 100 mg at 01/23/20824 ??? Apixaban (ELIQUIS) tablet 2.5 mg, 2.5 mg, Oral, BID, Nicole Magaña MD, 2.5 mg at 01/23/202137 ??? atorvastatin (LIPITOR) tablet 20 mg, 20 mg, Oral, Nightly, Nicole Magaña MD, 20 mg at 01/23/202137 ??? Benzocaine-Menthol (CEPACOL) 1 lozenge, 1 lozenge, Oral, TID PRN, Nicole Magaña MD ??? bisacodyl (DULCOLAX) suppository 10 mg, 10 mg, Rectal, Daily PRN, Nicole Magaña MD ??? dilTIAZem CD (CARDIZEM CD) 24 hr capsule 120 mg, 120 mg, Oral, Once a day, Carmen Blackman MD ??? diphenhydrAMINE (BENADRYL) tablet 25 mg, 25 mg, Oral, Q6H PRN, Nicole Magaña MD ??? docusate sodium (COLACE) capsule 100 mg, 100 mg, Oral, BID, Nicole Magaña MD, 100 mg at 01/23/202138 ??? famotidine (PEPCID) tablet 20 mg, 20 mg, Oral, Q48H, Nicole Magaña MD, 20 mg at 01/23/20 0825 ??? [START ON 01/25/2020] fluconazole (DIFLUCAN) tablet 200 mg, 200 mg, Oral, Once a day, Mike Zamora MD ??? furosemide (LASIX) tablet 80 mg, 80 mg, Oral, BID AC, Carmen Blackman MD, 80 mg at 01/24/20 1553 ??? heparin (porcine) injection 1,000 Units, 1,000 Units, Intravenous, TThSat w/ Dialysis, Carmen Blackman MD, 1,000 Units at 01/22/20 1631 ??? HYDROcodone-acetaminophen (NORCO) 5-325 MG per tablet 1 tablet, 1 tablet, Oral, Q6H PRN OR HYDROcodone-acetaminophen (LORCET PLUS) 10-325 MG per tablet 1 tablet, 1 tablet, Oral, Q6H PRN, Nicole Magaña MD, 1 tablet at 01/22/20 1832 ??? ondansetron ODT (ZOFRAN-ODT) disintegrating tablet 4 mg, 4 mg, Oral, Q6H PRN, Nicole Magaña MD ??? polyethylene glycol (MIRALAX) packet 17 g, 17 g, Oral, Once a day, Nicole Magaña MD, 17 g at 01/23/20 08 ??? rOPINIRole (REQUIP) tablet 0.5 mg, 0.5 mg, Oral, Nightly, Nicole Magaña MD, 0.5 mg at 01/23/202138 ??? sevelamer carbonate (RENVELA) tablet 800 mg, 800 mg, Oral, TID with meals, Nicole Magaña MD, 800 mg at 01/24/20 1200 ??? sodium chloride 0.9 % infusion 0-500 mL, 0-500 mL, Intravenous (Continuous Infusion), PRN During Dialysis, Carmen Blackman MD ??? sodium chloride 0.9 % infusion 200 mL, 200 mL, Intravenous (Continuous Infusion), Once, Carmen Curtis MD ??? tamsulosin (FLOMAX) 24 hr capsule 0.4 mg, 0.4 mg, Oral, Nightly, Nicole Magaña MD, 0.4 mg at 01/23/202138 Social History reports that he has quit smoking. He does not have any smokeless tobacco history on file. Alcohol use questions deferred to the physician. Denies smoking, alcohol or illicit drugs currently Family History No family history on file. No known history of thromboembolism Physical Exam Vital Signs: Temp: [98 ??F (36.7 ??C)-98.8 ??F (37.1 ??C)] 98 ??F (36.7 ??C) Pulse: [69-84] 69 Resp: [14-19] 19 BP: (113-144)/(53-68) 133/67 I/O Intake/Output Summary (Last 24 hours) at 01/24/2020 1624 Last data filed at 01/24/2020 0814 Gross per 24 hour Intake 600 ml Output 150 ml Net 450 ml Weights (last 3 days) Date/Time Weight 01/23/20 0520 133 lb 6.4 oz (60.5 kg) WEIGHTS 133 lb 6.4 oz (60.5 kg) General appearance: awake, alert, cooperative, no distress, MILDLY Confused HEENT: Normocephalic, No icterus, No oral lesions, Oral and nasal mucosa moist Neck: Supple, no lymphadenopathy Eyes: EOMI, Conjunctiva normal, No discharge Cardiovascular: s1-s2 audible, Normal heart rate, Normal rhythm, No murmurs, No rubs, No gallops Respiratory: Normal breath sounds, No respiratory distress, No wheezing, No rhonchi, No rales, No chest tenderness. GI: Bowel sounds normal, Soft, No tenderness, No rebound or guarding, No masses. Abdomen: soft without mass, non-tender, with normal bowel sounds, +/- Feeding Tube External Genitalia not examined, groin Extremities: no clubbing, cyanosis or edema, no calf tenderness Musculoskeletal:no swelling of joints.no redness, FROM otherjoints Psychologic: Mood and affect appropriate, no suicidal ideation. Skin: No rash, swelling or erythema identified . 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 No clonus Gait not tested ? Please see height, weight, and BP reported elsewhere as part of this encounter Labs CBC with Differential: Lab Results Component Value Date WBC 6.4 01/24/2020 HGB 7.8 (L) 01/24/2020 HCT 24.9 (L) 01/24/2020 PLT 283 01/24/2020 MCV 106.4 (H) 01/24/2020 MCH 33.3 01/24/2020 MCHC 31.3 01/24/2020 RDW 12.4 01/24/2020 [ BMP: Lab Results Component Value Date NA 136 01/24/2020 K 4.8 01/24/2020 CL 98 01/24/2020 CO2 28 01/24/2020 BUN 32 (H) 01/24/2020 CREATININE 5.84 (H) 01/24/2020 GLUCOSE 96 01/24/2020 CALCIUM 8.8 01/24/2020 ANIONGAP 10 01/24/2020 MG/PHOS: No results found for: MG, PHOS CKMB: No components found for: CKMB;2 PT/INR: No results found for: LABPROT, INR CMP: Lab Results Component Value Date NA 136 01/24/2020 K 4.8 01/24/2020 CL 98 01/24/2020 CO2 28 01/24/2020 BUN 32 (H) 01/24/2020 CREATININE 5.84 (H) 01/24/2020 GLUCOSE 96 01/24/2020 CALCIUM 8.8 01/24/2020 ALBUMIN 3.5 01/24/2020 ANIONGAP 10 01/24/2020 LFT's: No results found for: ALB, PROT Ionized Calcium: No components found for: IONCA ABG: No results found for: PHART, KJW4PST, PO2ART, VRS6ZMG, BEART, G7NTDTJM HgBA1c: No results found for: HGBA1C Lipid Panel: No results found for: CHOL, TRIG, HDL TSH: No results found for: TSH IMAGING STUDIES & OTHER STUDIES Assessment and plan @ADMDXS@ Active Problems: Osteoarthritis Advanced left hip arthritis ??S/p left hip arthroplasty F/u incision On Eliquis ( A Fib) Pain control Therapy ESRD HD Consult renal follow up with waxer floor MD Carmen Olea 01/21 CMP on Friday Chronic fluid overload Despite dialysis On lasix (01/21 BUN29; creatinine 4.52) Hypertension BP low on, diltiazem, lasix DC lisinopril Dyslipidemia -Lipitor Gout Allopurinol F/U ??Diabetes mellitus--diet??controlled Accu, SSI Atrial fibrillation eliquis for atrial fibrillation Not on rate control F/U daily Hypotension (01/22) NS 250 ml x 1 now. Anemia with Hb 8.3 fup with cbc on Friday Social service to work on discharge planning Hyperkalemia due to ESRD, K stable Anemia, probably related to his CKD, F/u Dementia Continue aricept Restless leg requip HLD Statin Pain management Today's pain score 3 FEN. Nutrition consult for evaluation of nutritional status and the best diet. And for BMI evaluation and education regarding maintaining a healthy BMI Bladder management Voiding ok Bowel management . Titrate bowel medications for constipation/diarrhea. Skin. Nursing to address skin care throughout stay. Turn every 2 hrs Sleep. Monitor sleep-wake cycle. High Fall risk- Fall precautions GI Prophylaxis: DVT Prophylaxis: Full Resuscitation Comprehensive Rehab Program (including but not limited to): --Nursing: working on bowel and bladder continence, skin integrity, carry over from therapies, environmental safety, and providing patient and family education. --Physical and Occupational Therapy: working on strength, endurance, balance, gait, and technique to improve safety and independence with ADLs and Mobility. --ST: working on oral-motor control, executive skills, memory, orientation, and cognitive skills. --Lion Tamer: discharge plans in the context of social, family, and discharge needs to help coordinate a safe discharge. --Neuropsychology (if applicable): tracking cognitive progress, evaluate memory, behavior, and cognitive function. guide patient and team toward better outcomes through understanding of behavioral and cognitive impairments and the obstacles that manifest by them --Rehabilitation Physician: to determine rehabilitation needs medical rehabilitation needs, will beseen by a kitman at a minimum of 3 times a week. The rehabilitation physician will coordinate care and help manage/prevent complications as a result of the patient???s illness and impairments The patient will receive 24 hour/day rehabilitation nursing supervision along with medical oversight by the medical and rehabilitation physicians to monitor for complications, changes in status, and determine the most appropriate medications to optimize function. The medical team will manage comorbidities and minimize complications such as dehydration, hypoglycemia, aspiration, pneumonia, uncontrolled BP, skin breakdown, contractures, and pain. In combination with intensive, comprehensive and multidisciplinary therapies to optimize function and long-term physical, cognitive, emotional and medical well-being. The patient will expected to participate and receive intensive therapy (an average of 3 hours per day of an average of 5 days weekly) not available in other settings in the inpatient rehabilitation program. The patient???s care will be coordinated through an interdisciplinary team with frequent steam hoist operator interactions and weekly conferences. An individualized plan of care with a minimum of two rehab therapies will be developed for the patient. Please refer to the Storeroom Attendant???s Post Admission Note determining the medical necessity as outlined in the [facility] documents to support admission for Acute Inpatient Rehabilitation Electronically signed by: DG HOUSE RN, 01/24/2020 4:24 PM CDT CC: No primary care provider on file. Cosigned by Nicole Magaña MD at 01/27/2020 2:38 PM CDT Associated attestation - Nicole Magaña MD - 01/27/2020 3:38 PM EDT Patient seen and evaluated on daily rounds. Discussed patient with BISQUE WARE DIPPER. I performed mario portions of the examination and evaluation. I agree with the subjective, physical exam, assessment, and plan as outlined above in the BISQUE WARE DIPPER's note. Discussed the mario medical decision making, rehabilitation goals and treatment plan with the membersof the team. * Mike Zamora MD - 01/24/2020 3:01 PM CDT REHAB INTERDISCIPLINARY PROGRESS NOTE Patient's Primary Care Physician: No primary care provider on file. Name: Ferdinand Rasmussen Age: 74 y.o. Chief Complaint/History of Present Illness Patient reports painful swallow and claims not to have eaten breakfast. Staff reports intake of 50%meal this AM. History of Present Illness Obtained from family/patient/staff. PFSHX: PMH: I have reviewed and there is no change Family: I have reviewed and there is no change Social: I have reviewed and there is no change No Known Allergies REVIEW OF SYSTEMS Odynophagia. EXAMINATION Vitals: 01/23/20 1630 01/23/20 2024 01/24/20 0814 01/24/20 0858 BP: 144/60 113/68 135/63 114/53 Pulse: 76 72 82 84 Resp: 14 19 Temp: 98.8 ??F (37.1 ??C) 98 ??F (36.7 ??C) TempSrc: Oral Tympanic SpO2: 100% 100% 100% Weight: Height: PHYSICAL EXAMINATION: GENERAL: Reveals a slender, alert, elderly gentleman, who is oriented x3. HEENT: Reveals a normocephalic, atraumatic head. He is edentulous. No noted tongue or buccal lesions. Noted placques on pharyngeal wall. No palpable cervical lymphadenopathy. Left submental non-tender chronic appearing nodule palpated. CARDIAC: Reveals a regular rate and rhythm. LUNGS: Clear to auscultation, although inspiratory effort is markedly diminished. CHEST: Tunneled catheter at right chest. ABDOMEN: Soft. Bowel sounds are present. : Unremarkable. EXTREMITIES: Reveals a well-healing right lateral thigh incision with lyric in place and an overlying gauze dressing. Homans are negative bilaterally. SKIN: Examination of the skin reveals no breakdown over the sacrum, occiput, or heels. NEUROLOGIC: Cranial nerves 2 through 12 appear to be intact. Motor examination reveals no pronator drift. Manual muscle testing reveals grade 4- strength of the upper extremities and at the left leg,he has grade 4- strength. At the right lower extremity, formal manual muscle testing was deferred proximally, but distally, he does appear to have grade 4- strength at the knee and ankle. Sensory testing yielded some equivocal responses distal to the ankles bilaterally, but overall, he does appear to have preserved pinprick on either side of the face, trunk, and extremities. Deep tendon reflexes are diminished throughout. No ankle clonus was elicited. Cerebellar examination was unremarkable. DATA/LAB/RADIOLOGY Meds: Current Facility-Administered Medications Medication Dose Route Frequency Provider Last Rate Last Dose ??? acetaminophen (TYLENOL) tablet 650 mg 650 mg Oral Q6H PRN Nicole Magaña MD 650 mg at 01/22/205 ??? allopurinol (ZYLOPRIM) tablet 100 mg 100 mg Oral Once a day Nicole Magaña MD 100 mg at 01/23/20 0825 ??? Apixaban (ELIQUIS) tablet 2.5 mg 2.5 mg Oral BID Nicole Magaña MD 2.5 mg at 01/23/202137 ??? atorvastatin (LIPITOR) tablet 20 mg 20 mg Oral Nightly Nicole Magaña MD 20 mg at 01/23/202137 ??? bisacodyl (DULCOLAX) suppository 10 mg 10 mg Rectal Daily PRN Nicole Magaña MD ??? dilTIAZem CD (CARDIZEM CD) 24 hr capsule 120 mg 120 mg Oral Once a day Carmen Blackman MD ??? diphenhydrAMINE (BENADRYL) tablet 25 mg 25 mg Oral Q6H PRN Nicole Magaña MD ??? docusate sodium (COLACE) capsule 100 mg 100 mg Oral BID Nicole Magaña MD 100 mg at 01/23/202138 ??? famotidine (PEPCID) tablet 20 mg 20 mg Oral Q48H Nicole Magaña MD 20 mg at 01/23/20 0825 ??? [START ON 01/25/2020] fluconazole (DIFLUCAN) tablet 200 mg 200 mg Oral Once a day Mike Zamora MD ??? furosemide (LASIX) tablet 80 mg 80 mg Oral BID AC Carmen Blackman MD 80 mg at 01/24/20 0743 ??? heparin (porcine) injection 1,000 Units 1,000 Units Intravenous TThSat w/ Dialysis Carmen Blackman MD 1,000 Units at 01/22/20 1631 ??? HYDROcodone-acetaminophen (NORCO) 5-325 MG per tablet 1 tablet 1 tablet Oral Q6H PRN Nicole Magaña MD Or ??? HYDROcodone-acetaminophen (LORCET PLUS) 10-325 MG per tablet 1 tablet 1 tablet Oral Q6H PRN Nicole Magaña MD 1 tablet at 01/22/20 1832 ??? ondansetron ODT (ZOFRAN-ODT) disintegrating tablet 4 mg 4 mg Oral Q6H PRN Nicole Magaña MD ??? polyethylene glycol (MIRALAX) packet 17 g 17 g Oral Once a day Nicoel Magaña MD 17 g at 01/23/20 0825 ??? rOPINIRole (REQUIP) tablet 0.5 mg 0.5 mg Oral Nightly Nicole Magaña MD 0.5 mg at 01/23/202138 ??? sevelamer carbonate (RENVELA) tablet 800 mg 800 mg Oral TID with meals Nicole Magaña MD 800 mg at 01/24/20 1200 ??? sodium chloride 0.9 % infusion 0-500 mL 0-500 mL Intravenous (Continuous Infusion) PRN During Dialysis Carmen Blackman MD ??? sodium chloride 0.9 % infusion 200 mL 200 mL Intravenous (Continuous Infusion) Once Carmen Blackman MD ??? tamsulosin (FLOMAX) 24 hr capsule 0.4 mg 0.4 mg Oral Nightly Nicole Magaña MD 0.4 mg at 01/23/202138 Labs: Lab Results Component Value Date WBC 6.4 01/24/2020 HGB 7.8 (L) 01/24/2020 HCT 24.9 (L) 01/24/2020 MCV 106.4 (H) 01/24/2020 PLT 283 01/24/2020 Lab Results Component Value Date GLUCOSE 96 01/24/2020 CALCIUM 8.8 01/24/2020 NA 136 01/24/2020 K 4.8 01/24/2020 CO2 28 01/24/2020 CL 98 01/24/2020 BUN 32 (H) 01/24/2020 CREATININE 5.84 (H) 01/24/2020 REVIEW OF FUNCTIONAL STATUS SM Functional Status PT Data (since 01/21/2020) Value Time User Bed Mobility Level of Assist Contact Guard 01/23/2020 8:21 AM Cam Brandt, PT Bed Mobility Comment Pt performs bed mobility from supine to sit EOB with CGA within posterior hip precautions. 01/23/2020 8:21 AM Cam Brandt, PT Transfer to Stand 01/24/2020 2:37 PM Kylie Sanchez, PT Transfer from Wheelchair 01/24/2020 2:37 PM Kylie Sanchez, PT Transfer Level of Assist Close Supervision 01/24/2020 2:37 PM Kylie Sanchez PT Ambulation Level of Assist Close Supervision 01/24/2020 2:37 PM Kylie Sanchez PT Distance (feet) 212 01/24/2020 2:46 PM Kylie Sanchez PT Gait Analysis 1 x 161' with RW and close supervision throughout. Pt demonstrates decreased foot clearance, decreased stance time on L LE, small/faster shuffling gait, narrow DEONNA, and increased reliance on UE support for balance. Pt demonstrates no LOB throughout. Seated rest break upon completion. After seated rest break, pt performs 3 x TUG (see below for details). Ambulation over compliant foam mat: Pt performs with increased time to complete and varying CGA-close supervision throughout mobility. Pt demonstrates no physical LOB, however with minimal foot clearance during transition up onto mat. Pt requires seated rest break upon completion. 1 x 100' with picking up objects from floor (see below for details). Pt performs with similar level of assistance and gait deviations as noted above. Pt also performs 1 x 6 Minute Walk Test/2 Minute Walk Test: Walks a total of 212 feet during this bout of ambulation prior to requiring seated rest break. See below for details: 01/24/2020 2:46 PM Kylie Sanchez PT WC Level of Assist Close Supervision 01/24/2020 2:37 PM Kylie Sanchez PT Distance Traveled in WC 150 01/24/2020 2:37 PM Kylie Sanchez PT WC Analysis Pt performs with B UE's and no leg rests in order to utilize LE's to steer as needed. He is able to propel wheelchair up to 150' prior to requiring total assistance for all remaining wheelchair mobility. He requires greatly increased time to complete and initial verbal cues for hand placement for proper sequencing and propulsion. Pt requires increased cues for sequencing on turns, however after initial cues, pt is able to perform with close supervision throughout. 01/24/2020 2:37 PM Kylie Sanchez PT Functional Status OT Data (since 01/21/2020) Value Time User Grooming Minimal Verbal Cues 01/23/2020 11:30 AM Kayli Hernandez OT Lower Body Dressing Minimal Assistance 01/24/2020 8:36 AM Carlos Caba OT Bed/Chair/WC Transfer Contact Guard; Close Supervision 01/24/2020 8:36 AM Carlos Caba OT Functional Status DIRECTOR [employer] SAL[employer] Data (since 01/21/2020) None MEDICAL DECISION MAKING/PLAN Problem List: 1. End-stage osteoarthritis of the left hip, status post left total hip arthroplasty 01/12/2020. Providing local wound care, monitoring analgesic regimen for efficacy and adverse effects. 2. End-stage renal disease, on hemodialysis. Nephrology follow up and recommendations noted and appreciated. 3. Paroxysmal atrial fibrillation. Eliquis, 4. Dementia. 5. Anemia. 6. Previous history of stroke. 7. Dyslipidemia. Lipitor. 8. Hypertension. Low BP noted. Saline bolus ordered over the weekend. 9. Restless legs syndrome. Requip. 10. Bladder outlet obstruction related to prostatic hypertrophy. 11. History of gout. Zyloprim. No noted acute joint flares. 12. Odynophagia: possible thrush. Diflucan ordered, DIRECTOR [employer] SALES to do bedside evaluation. 13. Bladder/bowel: Continent. Last BM 01/22. Signed: MIKE ZAMORA MD 01/24/2020 3:01 PM CDT * Tara Alberts RD - 01/24/2020 8:45 AM CDT Pt complains to nursing his throat is closing up and cant swallow. Will decrease diet to ndd3 untilspeech therapy can visit with pt * Carmen Blackman MD - 01/23/2020 7:05 PM CDT Nephrology Progress Note Ferdinand Rasmussen [id number] [phone] Subjective: Patient denies fever, chills, chest pain, sob, cough, changes in appetite, N/V, diarrhea, abdominalpain, still c/o left hip pain Objective: Vital signs: Vitals: 01/23/20 0822 01/23/20 1023 01/23/20 1630 01/23/202023 BP: (!) 78/47 100/54 144/60 113/68 Pulse: 75 69 76 72 Resp: 14 Temp: 98.8 ??F (37.1 ??C) TempSrc: Oral SpO2: 100% Weight: Height: Intake/Output Summary (Last 24 hours) at 01/23/2020 2305 Last data filed at 01/23/2020 1730 Gross per 24 hour Intake 840 ml Output 300 ml Net 540 ml Intake/Output last 3 shifts: I/O last 3 completed shifts: In: 1320 [P.O.:1320] Out: 600 Intake/Output this shift: No intake/output data recorded. Weight: Wt Readings from Last 3 Encounters: 01/23/20 133 lb 6.4 oz (60.5 kg) 05/27/19 136 lb (61.7 kg) Medications: Scheduled/Continuous Medications Scheduled Medication Ordered Dose/Rate, Route, Frequency Last Action allopurinol (ZYLOPRIM) tablet 100 mg 100 mg, PO, Once a day Given, 100 mg at 01/22 825 Apixaban (ELIQUIS) tablet 2.5 mg 2.5 mg, PO, BID Given, 2.5 mg at 01/22 2138 atorvastatin (LIPITOR) tablet 20 mg 20 mg, PO, Nightly Given, 20 mg at 01/22 2138 dilTIAZem CD (CARDIZEM CD) 24 hr capsule 120 mg 120 mg, PO, Once a day Ordered docusate sodium (COLACE) capsule 100 mg 100 mg, PO, BID Given, 100 mg at 01/22 2139 famotidine (PEPCID) tablet 20 mg 20 mg, PO, Q48H Given, 20 mg at 01/22 825 furosemide (LASIX) tablet 80 mg 80 mg, PO, BID AC Given, 80 mg at 01/22 163 heparin (porcine) injection 1,000 Units 1,000 Units, IV, TThSat w/ Dialysis Given by Other, 1,000 Units at 01/21 163 polyethylene glycol (MIRALAX) packet 17 g 17 g, PO, Once a day Given, 17 g at 01/22 825 rOPINIRole (REQUIP) tablet 0.5 mg 0.5 mg, PO, Nightly Given, 0.5 mg at 01/22 2139 sevelamer carbonate (RENVELA) tablet 800 mg 800 mg, PO, TID with meals Given, 800 mg at 01/22 163 sodium chloride 0.9 % infusion 200 mL 200 mL, CI, Once Ordered tamsulosin (FLOMAX) 24 hr capsule 0.4 mg 0.4 mg, PO, Nightly Given, 0.4 mg at 01/22 2139 Current Facility-Administered Medications: ??? acetaminophen (TYLENOL) tablet 650 mg, 650 mg, Oral, Q6H PRN, Nicole Magaña MD, 650 mg at 01/22/202144 ??? allopurinol (ZYLOPRIM) tablet 100 mg, 100 mg, Oral, Once a day, Nicole Magaña MD, 100 mg at 01/23/20824 ??? Apixaban (ELIQUIS) tablet 2.5 mg, 2.5 mg, Oral, BID, Nicole Magaña MD, 2.5 mg at 01/23/202137 ??? atorvastatin (LIPITOR) tablet 20 mg, 20 mg, Oral, Nightly, Nicole Magaña MD, 20 mg at 01/23/202137 ??? bisacodyl (DULCOLAX) suppository 10 mg, 10 mg, Rectal, Daily PRN, Nicole Magaña MD ??? dilTIAZem CD (CARDIZEM CD) 24 hr capsule 120 mg, 120 mg, Oral, Once a day, Carmen Blackman MD ??? diphenhydrAMINE (BENADRYL) tablet 25 mg, 25 mg, Oral, Q6H PRN, Nicole Magaña MD ??? docusate sodium (COLACE) capsule 100 mg, 100 mg, Oral, BID, Nicole Magaña MD, 100 mg at 01/23/202138 ??? famotidine (PEPCID) tablet 20 mg, 20 mg, Oral, Q48H, Nicole Magaña MD, 20 mg at 01/23/20824 ??? furosemide (LASIX) tablet 80 mg, 80 mg, Oral, BID AC, Carmen Blackman MD, 80 mg at 01/23/201631 ??? heparin (porcine) injection 1,000 Units, 1,000 Units, Intravenous, TThSat w/ Dialysis, Carmen Blackman MD, 1,000 Units at 01/22/201630 ??? HYDROcodone-acetaminophen (NORCO) 5-325 MG per tablet 1 tablet, 1 tablet, Oral, Q6H PRN OR HYDROcodone-acetaminophen (LORCET PLUS) 10-325 MG per tablet 1 tablet, 1 tablet, Oral, Q6H PRN, Nicole Magaña MD, 1 tablet at 01/22/20 1832 ??? ondansetron ODT (ZOFRAN-ODT) disintegrating tablet 4 mg, 4 mg, Oral, Q6H PRN, Nicole Magaña MD ??? polyethylene glycol (MIRALAX) packet 17 g, 17 g, Oral, Once a day, Nicole Magaña MD, 17 g at 01/23/20 0825 ??? rOPINIRole (REQUIP) tablet 0.5 mg, 0.5 mg, Oral, Nightly, Nicole Magaña MD, 0.5 mg at 01/23/202138 ??? sevelamer carbonate (RENVELA) tablet 800 mg, 800 mg, Oral, TID with meals, Nicole Magaña MD, 800 mg at 01/23/20 163 ??? sodium chloride 0.9 % infusion 0-500 mL, 0-500 mL, Intravenous (Continuous Infusion), PRN During Dialysis, Carmen Blackman MD ??? sodium chloride 0.9 % infusion 200 mL, 200 mL, Intravenous (Continuous Infusion), Once, Carmen Curtis MD ??? tamsulosin (FLOMAX) 24 hr capsule 0.4 mg, 0.4 mg, Oral, Nightly, Nicole Magaña MD, 0.4 mg at 01/23/202138 ??? acetaminophen ??? bisacodyl ??? diphenhydrAMINE ??? HYDROcodone-acetaminophen OR HYDROcodone-acetaminophen ??? ondansetron ODT ??? sodium chloride Physical Exam: General: awake and alert. In NAD Lungs: CTA B/L Heart: RRR, S1 and S2 without rubs Abdomen: Soft, NT/ND, + BS Ext: Without edema Labs: Recent Labs Lab Units 01/21/20 0530 SODIUM MMOL/L BLOOD mmol/L 138 POTASSIUM MMOL/L BLOOD mmol/L 4.5 CHLORIDE mmol/L 99 CO2 mmol/L 29 BUN MG/DL BLOOD mg/dL 29* CREATININE mg/dL 4.52* GLUCOSE MG/DL BLOOD mg/dL 115* CALCIUM MG/DL BLOOD mg/dL 8.9 ANION GAP BLOOD mmol/L 10 Recent Labs Lab Units 01/21/20 0530 SODIUM MMOL/L BLOOD mmol/L 138 POTASSIUM MMOL/L BLOOD mmol/L 4.5 CHLORIDE mmol/L 99 CO2 mmol/L 29 BUN MG/DL BLOOD mg/dL 29* CREATININE mg/dL 4.52* GLUCOSE MG/DL BLOOD mg/dL 115* CALCIUM MG/DL BLOOD mg/dL 8.9 Recent Labs Lab Units 01/21/20 0530 SODIUM MMOL/L BLOOD mmol/L 138 POTASSIUM MMOL/L BLOOD mmol/L 4.5 CHLORIDE mmol/L 99 CO2 mmol/L 29 BUN MG/DL BLOOD mg/dL 29* CREATININE mg/dL 4.52* GLUCOSE MG/DL BLOOD mg/dL 115* CALCIUM MG/DL BLOOD mg/dL 8.9 Recent Labs Lab Units 01/21/20 0530 WBC X(10)9/L BLOOD x10E9/L 5.3 HGB GM/DL BLOOD gm/dL 8.3* HCT % BLOOD % 26.4* PLT CT X(10)9/L BLOOD x10E9/L 226 Assessment/ Plan: ESRD, on IHD TTS, cont dialysis HTN, BP is soft now, BP medications adjusted Anemia due to CKD Advanced arthritis left hip underwent left hip arthoplasty History of recurrent volume overload, now stable on UF History of recurrent hyperkalemia, due to ESRD DM CARMEN BLACKMAN MD Office [phone] * Robbin Brown NP - 01/23/2020 10:20 AM CDT Progress notes [place] CHIEF COMPLAINT Active Problems: Osteoarthritis Subjective: (01/21) Patient seen in during PT time and after in his room .Patient mildly confused ,not in distress Patient stated had good night sleep , no pain. Denies dizziness, BP droping to 78/47 mm/Hg , pULSE 63 MIN last Creatinine from 01/20 was 4.52 with BUN 29 ; Hb 8.3,Plt 226 . Left hip lyric on no drainage no discharge 01/22 Patient seen in during PT time and after in his room .Patient mildly confused ,not in distress Patient stated had good night sleep , no pain. Denies dizziness, BP 78/47 and now 100/54 mm/Hg , last Creatinine from 01/20.Yesterday had HD.was 4.52 with BUN 29 ; Hb 8.3,Plt 226 . Left hip lyric on no drainage no discharge History of Present illness The patient is a 74 y.o. y/o male with history of DM, HTN, ESRD on HD, Dementia and placement rightdeep brachial vein arteriovenous fistula 10/20/2019 and with advanced arthritis left hip underwent left hip arthoplasty by Dr. Agudelo currently here for therapy Todays chief Complains Hip pain Ok on pain meds constipation Duration of problems- Intensity Type Associated symptoms Aggrevating/relieving factors History also obtained from review of patients previous acute hospitalization chart, current rehabilitation chart , discussion with family members in the room and discussion with nursing staff taking care of the patient. Review of Systems General: no weight loss, no fever, no chills, no anorexia Skin: no rash Eyes: no blurry vision Ears/Nose/Throat: no nasal congestion, no sore throat Respiratory: no cough, no dyspnea, no wheezing Cardiovascular: no chest pain, no ankle swelling Gastrointestinal: no nausea, no vomiting, no diarrhea, no constipation, no abdominal pain. No melena, no bright red blood per rectum Genitourinary: no dysuria, no hematuria Musculoskeletal: no joint pain, no myalgia, no muscle weakness Neurologic: no seizures, no tremors, no fainting, no focal weakness , tingling or numbness Hematologic/Lymphatic: no abnormal bleeding, no abnormal bruising Endocrine: no heat or cold intolerance, no polydipsia, no polyuria Psychiatric: no anxiety, no depression Allergy/Immunology: no seasonal allergies, no joint stiffness in morning Review of ssytems pertinent as above and all the other 14 organ systems are negative Past Medical History Past Medical History: Diagnosis Date ??? Diabetes mellitus ??? Diabetes mellitus 05/12/2019 ??? End stage renal failure on dialysis 05/12/2019 New to dialysis ??? Hypertension ??? Other abnormal clinical findings ??? Seroma 05/12/2019 Proximal Left thigh 60 x 23 x39 mm by US Past Surgical History No past surgical history on file. Allergies No Known Allergies Home Medications Prior to Admission medications Medication Sig Start Date End Date Taking? Authorizing Provider acetaminophen (TYLENOL) 325 MG tablet 1 tablet (325 mg total) by PO/Per Tube route every 6 (six) hours as needed for mild pain (1 - 3) or Temp > or equal to 101F (38.3C). 05/28/19 Florencia Moulton MD allopurinol (ZYLOPRIM) 100 MG tablet Take 1 tablet (100 mg total) by mouth daily. 05/28/19 Florencia Moulton MD atorvastatin (LIPITOR) 20 MG tablet Take 1 tablet (20 mg total) by mouth daily. 05/28/19 Florencia Moulton MD Diclofenac Sodium (VOLTAREN) 1 % gel Apply 2 g topically 2 (two) times a day. 05/28/19 Florencia Moulton MD docusate sodium (COLACE) 100 MG capsule Take 1 capsule (100 mg total) by mouth daily. 05/28/19 MD Nico donepezil (ARICEPT) 10 MG tablet Take 1 tablet (10 mg total) by mouth nightly. 05/28/19 Florencia Moulton MD folic acid (FOLVITE) 1 MG tablet Take 1 tablet (1 mg total) by mouth daily. 05/28/19 Florencia Moulton MD furosemide (LASIX) 80 MG tablet Take 1 tablet (80 mg total) by mouth 2 (two) times a day diuretic. 05/28/19 Florencia Moulton MD lidocaine (LIDOCARE) 4 % patch patch Place 2 patches on the skin daily. 05/28/19 Florencia Moulton MD oxyCODONE-acetaminophen (PERCOCET) 5-325 MG per tablet Take 1 tablet by mouth every 6 (six) hours as needed for moderate pain (4 - 6). Max Daily Amount: 4 tablets 05/28/19 Florencia Moulton MD rOPINIRole (REQUIP) 0.5 MG tablet Take 1 tablet (0.5 mg total) by mouth Three times per week with dialysis. 05/29/19 Florencia Moulton MD tamsulosin (FLOMAX) 0.4 MG capsule Take 1 capsule (0.4 mg total) by mouth nightly. 05/28/19 Florencia Moulton MD CURRENT Medications Current Facility-Administered Medications: ??? acetaminophen (TYLENOL) tablet 650 mg, 650 mg, Oral, Q6H PRN, Nicole Magaña MD, 650 mg at 01/22/20 2145 ??? allopurinol (ZYLOPRIM) tablet 100 mg, 100 mg, Oral, Once a day, Nicole Magaña MD, 100 mg at 01/23/20 0825 ??? Apixaban (ELIQUIS) tablet 2.5 mg, 2.5 mg, Oral, BID, Nicole Magaña MD, 2.5 mg at 01/23/20 0824 ??? atorvastatin (LIPITOR) tablet 20 mg, 20 mg, Oral, Nightly, Nicole Magaña MD, 20 mg at 01/22/20 2143 ??? bisacodyl (DULCOLAX) suppository 10 mg, 10 mg, Rectal, Daily PRN, Nicole Magaña MD ??? dilTIAZem CD (CARDIZEM CD) 24 hr capsule 120 mg, 120 mg, Oral, Once a day, Carmen Blackman MD ??? diphenhydrAMINE (BENADRYL) tablet 25 mg, 25 mg, Oral, Q6H PRN, Nicole Magaña MD ??? docusate sodium (COLACE) capsule 100 mg, 100 mg, Oral, BID, Nicole Magaña MD, 100 mg at 01/23/20 0824 ??? famotidine (PEPCID) tablet 20 mg, 20 mg, Oral, Q48H, Nicole Magaña MD, 20 mg at 01/23/20 0825 ??? furosemide (LASIX) tablet 80 mg, 80 mg, Oral, BID AC, Carmen Blackman MD, 80 mg at 01/20/20 2253 ??? heparin (porcine) injection 1,000 Units, 1,000 Units, Intravenous, TThSat w/ Dialysis, Carmen Blackman MD, 1,000 Units at 01/22/20 1631 ??? HYDROcodone-acetaminophen (NORCO) 5-325 MG per tablet 1 tablet, 1 tablet, Oral, Q6H PRN OR HYDROcodone-acetaminophen (LORCET PLUS) 10-325 MG per tablet 1 tablet, 1 tablet, Oral, Q6H PRN, Nicole Magaña MD, 1 tablet at 01/22/20 1832 ??? ondansetron ODT (ZOFRAN-ODT) disintegrating tablet 4 mg, 4 mg, Oral, Q6H PRN, Nicole Magaña MD ??? polyethylene glycol (MIRALAX) packet 17 g, 17 g, Oral, Once a day, Nicole Magaña MD, 17 g at 01/23/20824 ??? rOPINIRole (REQUIP) tablet 0.5 mg, 0.5 mg, Oral, Nightly, Nicole Magaña MD, 0.5 mg at 01/22/202141 ??? sevelamer carbonate (RENVELA) tablet 800 mg, 800 mg, Oral, TID with meals, Nicole Magaña MD, 800 mg at 01/23/20823 ??? sodium chloride 0.9 % infusion 0-500 mL, 0-500 mL, Intravenous (Continuous Infusion), PRN During Dialysis, Carmen Blackman MD ??? sodium chloride 0.9 % infusion 200 mL, 200 mL, Intravenous (Continuous Infusion), Once, Carmen Curtis MD ??? sodium chloride 0.9 % infusion, 50 mL/hr, Intravenous (Continuous Infusion), Continuous, Robbin Brown, NEENA ??? tamsulosin (FLOMAX) 24 hr capsule 0.4 mg, 0.4 mg, Oral, Nightly, Nicole Magaña MD, 0.4 mg at 01/22/202142 Social History reports that he has quit smoking. He does not have any smokeless tobacco history on file. Alcohol use questions deferred to the physician. Denies smoking, alcohol or illicit drugs currently Family History No family history on file. No known history of thromboembolism Physical Exam Vital Signs: Temp: [98.2 ??F (36.8 ??C)-99.2 ??F (37.3 ??C)] 99.2 ??F (37.3 ??C) Pulse: [63-84] 75 Resp: [16-18] 16 BP: (78-125)/(47-71) 78/47 I/O Intake/Output Summary (Last 24 hours) at 01/23/2020 1020 Last data filed at 01/23/2020 0735 Gross per 24 hour Intake 600 ml Output 400 ml Net 200 ml Weights (last 3 days) Date/Time Weight Height BSA (Calculated - sq m) 01/23/20 0520 133 lb 6.4 oz (60.5 kg) -- -- 01/20/20 1722 132 lb (59.9 kg) 5' 10 (1.778 m) 1.72 sq meters WEIGHTS 133 lb 6.4 oz (60.5 kg) General appearance: awake, alert, cooperative, no distress, MILDLY Confused HEENT: Normocephalic, No icterus, No oral lesions, Oral and nasal mucosa moist Neck: Supple, no lymphadenopathy Eyes: EOMI, Conjunctiva normal, No discharge Cardiovascular: s1-s2 audible, Normal heart rate, Normal rhythm, No murmurs, No rubs, No gallops Respiratory: Normal breath sounds, No respiratory distress, No wheezing, No rhonchi, No rales, No chest tenderness. GI: Bowel sounds normal, Soft, No tenderness, No rebound or guarding, No masses. Abdomen: soft without mass, non-tender, with normal bowel sounds, +/- Feeding Tube External Genitalia not examined, groin Extremities: no clubbing, cyanosis or edema, no calf tenderness Musculoskeletal:no swelling of joints.no redness, FROM otherjoints Psychologic: Mood and affect appropriate, no suicidal ideation. Skin: No rash, swelling or erythema identified . 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 No clonus Gait not tested ? Please see height, weight, and BP reported elsewhere as part of this encounter Labs CBC with Differential: Lab Results Component Value Date WBC 5.3 01/21/2020 HGB 8.3 (L) 01/21/2020 HCT 26.4 (L) 01/21/2020 PLT 226 01/21/2020 MCV 106.0 (H) 01/21/2020 MCH 33.3 01/21/2020 MCHC 31.4 01/21/2020 RDW 13.0 01/21/2020 [ BMP: Lab Results Component Value Date NA 138 01/21/2020 K 4.5 01/21/2020 CL 99 01/21/2020 CO2 29 01/21/2020 BUN 29 (H) 01/21/2020 CREATININE 4.52 (H) 01/21/2020 GLUCOSE 115 (H) 01/21/2020 CALCIUM 8.9 01/21/2020 ANIONGAP 10 01/21/2020 MG/PHOS: No results found for: MG, PHOS CKMB: No components found for: CKMB;2 PT/INR: No results found for: LABPROT, INR CMP: Lab Results Component Value Date NA 138 01/21/2020 K 4.5 01/21/2020 CL 99 01/21/2020 CO2 29 01/21/2020 BUN 29 (H) 01/21/2020 CREATININE 4.52 (H) 01/21/2020 GLUCOSE 115 (H) 01/21/2020 CALCIUM 8.9 01/21/2020 ANIONGAP 10 01/21/2020 LFT's: No results found for: ALB, PROT Ionized Calcium: No components found for: IONCA ABG: No results found for: PHART, EJL1LMB, PO2ART, TDG1ZKF, BEART, L2WBXPHJ HgBA1c: No results found for: HGBA1C Lipid Panel: No results found for: CHOL, TRIG, HDL TSH: No results found for: TSH IMAGING STUDIES & OTHER STUDIES Assessment and plan @ADMDXS@ Active Problems: Osteoarthritis Advanced left hip arthritis ??S/p left hip arthroplasty F/u incision On Eliquis ( A Fib) Pain control Therapy ESRD HD Consult renal follow up with waxer floor MD Carmen Olea 01/21 CMP on Friday Chronic fluid overload Despite dialysis On lasix (01/21 BUN29; creatinine 4.52 Hypertension BP low on, diltiazem, lasix DC lisinopril Dyslipidemia on sLipitor Gout Allopurinol F/U ??Diabetes mellitus--diet??controlled Accu, SSI Atrial fibrillation eliquis for atrial fibrillation Not on rate control F/U daily Hypotension (01/22) NS 250 ml x 1 now. Anemia with Hb 8.3 fup with cbc on Friday Social service to work on discharge planning Hyperkalemia due to ESRD, K stable Anemia, probably related to his CKD, F/u Dementia Continue aricept Restless leg requip HLD Statin Pain management Today's pain score 3 FEN. Nutrition consult for evaluation of nutritional status and the best diet. And for BMI evaluation and education regarding maintaining a healthy BMI Bladder management Voiding ok Bowel management . Titrate bowel medications for constipation/diarrhea. Skin. Nursing to address skin care throughout stay. Turn every 2 hrs Sleep. Monitor sleep-wake cycle. High Fall risk- Fall precautions GI Prophylaxis: DVT Prophylaxis: Full Resuscitation Comprehensive Rehab Program (including but not limited to): --Nursing: working on bowel and bladder continence, skin integrity, carry over from therapies, environmental safety, and providing patient and family education. --Physical and Occupational Therapy: working on strength, endurance, balance, gait, and technique to improve safety and independence with ADLs and Mobility. --ST: working on oral-motor control, executive skills, memory, orientation, and cognitive skills. --Lion Tamer: discharge plans in the context of social, family, and discharge needs to help coordinate a safe discharge. --Neuropsychology (if applicable): tracking cognitive progress, evaluate memory, behavior, and cognitive function. guide patient and team toward better outcomes through understanding of behavioral and cognitive impairments and the obstacles that manifest by them --Rehabilitation Physician: to determine rehabilitation needs medical rehabilitation needs, will beseen by a kitman at a minimum of 3 times a week. The rehabilitation physician will coordinate care and help manage/prevent complications as a result of the patient???s illness and impairments The patient will receive 24 hour/day rehabilitation nursing supervision along with medical oversight by the medical and rehabilitation physicians to monitor for complications, changes in status, and determine the most appropriate medications to optimize function. The medical team will manage comorbidities and minimize complications such as dehydration, hypoglycemia, aspiration, pneumonia, uncontrolled BP, skin breakdown, contractures, and pain. In combination with intensive, comprehensive and multidisciplinary therapies to optimize function and long-term physical, cognitive, emotional and medical well-being. The patient will expected to participate and receive intensive therapy (an average of 3 hours per day of an average of 5 days weekly) not available in other settings in the inpatient rehabilitation program. The patient???s care will be coordinated through an interdisciplinary team with frequent steam hoist operator interactions and weekly conferences. An individualized plan of care with a minimum of two rehab therapies will be developed for the patient. Please refer to the Storeroom Attendant???s Post Admission Note determining the medical necessity as outlined in the [facility] documents to support admission for Acute Inpatient Rehabilitation Electronically signed by: ROBBIN BROWN NP, 01/23/2020 10:20 AM CDT CC: No primary care provider on file. Cosigned by Misty Hathaway MD at 01/24/2020 8:22 AM CDT Associated attestation - Misty Hathaway MD - 01/24/2020 9:22 AM EDT The patient is being seen for follow-up of all current problems, BP, BS , HR, labs and strength. Follow up on pain, swallowing, bladder and bowel function. Strength improving, able to do therapy ok. I saw and evaluated the patient face to face in conjunction with the BISQUE WARE DIPPER and agree with the management and disposition of the patient. History also obtained from Nurse and staff about how the patient did overnight and during the day. I performed mario portions of the follow up, review of labs and radiology and evaluation. I agree with the subjective, physical exam and assessment and plan details as outlined in the note below. Discussed the mario medical decision making- both assessment and plan, rehabilitation goals and treatment plan with patient, BISQUE WARE DIPPER , nursing staff, kitman and the members of the team. The patient is being seen for follow-up of all current problems, BP, BS , HR, labs and strength. Follow up on pain, swallowing, bladder and bowel function. Strength improving, able to do therapy ok. I saw and evaluated the patient face to face in conjunction with the BISQUE WARE DIPPER and agree with the management and disposition of the patient. History also obtained from Nurse and staff about how the patient did overnight and during the day. I performed mario portions of the follow up, review of labs and radiology and evaluation. I agree with the subjective, physical exam and assessment and plan details as outlined in the note below. Discussed the mario medical decision making- both assessment and plan, rehabilitation goals and treatment plan with patient, BISQUE WARE DIPPER , nursing staff, kitman and the members of the team. * Carmen Blackman MD - 01/22/2020 5:22 PM CDT Nephrology Progress Note Ferdinand Rasmussen [id number] Subjective: Patient seen and examined, he denies fever, chills, chest pain, sob, cough, changes in appetite, N/V, diarrhea, abdominal pain, still c/o left hip pain Objective: Vital signs: Vitals: 01/21/20 1951 01/22/20 0751 01/22/20 1039 01/22/202029 BP: 122/65 91/42 102/51 125/71 Pulse: 71 70 75 84 Resp: 18 Temp: 99.4 ??F (37.4 ??C) 98.3 ??F (36.8 ??C) 98.2 ??F (36.8 ??C) TempSrc: Oral Oral Oral SpO2: 96% 99% 100% 100% Weight: Height: Intake/Output Summary (Last 24 hours) at 01/23/2020 022 Last data filed at 01/23/2020 0204 Gross per 24 hour Intake 600 ml Output 400 ml Net 200 ml Intake/Output last 3 shifts: I/O last 3 completed shifts: In: 1080 [P.O.:1080] Out: 700 Intake/Output this shift: I/O this shift: In: 120 [P.O.:120] Out: - Weight: Wt Readings from Last 3 Encounters: 01/20/20 132 lb (59.9 kg) 05/27/19 136 lb (61.7 kg) Medications: Scheduled/Continuous Medications Scheduled Medication Ordered Dose/Rate, Route, Frequency Last Action allopurinol (ZYLOPRIM) tablet 100 mg 100 mg, PO, Once a day Given, 100 mg at 01/21 823 Apixaban (ELIQUIS) tablet 2.5 mg 2.5 mg, PO, BID Given, 2.5 mg at 01/21 2142 atorvastatin (LIPITOR) tablet 20 mg 20 mg, PO, Nightly Given, 20 mg at 01/21 2143 dilTIAZem CD (CARDIZEM CD) 24 hr capsule 120 mg 120 mg, PO, Once a day Ordered docusate sodium (COLACE) capsule 100 mg 100 mg, PO, BID Given, 100 mg at 01/21 2142 famotidine (PEPCID) tablet 20 mg 20 mg, PO, Q48H Given, 20 mg at 01/20 829 furosemide (LASIX) tablet 80 mg 80 mg, PO, BID AC Given, 80 mg at 01/19 2253 heparin (porcine) injection 1,000 Units 1,000 Units, IV, TThSat w/ Dialysis Given by Other, 1,000 Units at 01/21 163 polyethylene glycol (MIRALAX) packet 17 g 17 g, PO, Once a day Given, 17 g at 01/21 823 rOPINIRole (REQUIP) tablet 0.5 mg 0.5 mg, PO, Nightly Given, 0.5 mg at 01/21 2142 sevelamer carbonate (RENVELA) tablet 800 mg 800 mg, PO, TID with meals Given, 800 mg at 01/21 2143 sodium chloride 0.9 % infusion 200 mL 200 mL, CI, Once Ordered tamsulosin (FLOMAX) 24 hr capsule 0.4 mg 0.4 mg, PO, Nightly Given, 0.4 mg at 01/21 2143 Current Facility-Administered Medications: ??? acetaminophen (TYLENOL) tablet 650 mg, 650 mg, Oral, Q6H PRN, Nicole Magaña MD, 650 mg at 01/22/202144 ??? allopurinol (ZYLOPRIM) tablet 100 mg, 100 mg, Oral, Once a day, Nicole Magaña MD, 100 mg at 01/22/20822 ??? Apixaban (ELIQUIS) tablet 2.5 mg, 2.5 mg, Oral, BID, Nicole Magaña MD, 2.5 mg at 01/22/202141 ??? atorvastatin (LIPITOR) tablet 20 mg, 20 mg, Oral, Nightly, Nicole Magaña MD, 20 mg at 01/22/202142 ??? bisacodyl (DULCOLAX) suppository 10 mg, 10 mg, Rectal, Daily PRN, Nicole Magaña MD ??? dilTIAZem CD (CARDIZEM CD) 24 hr capsule 120 mg, 120 mg, Oral, Once a day, Carmen Blackman MD ??? diphenhydrAMINE (BENADRYL) tablet 25 mg, 25 mg, Oral, Q6H PRN, Nicole Magaña MD ??? docusate sodium (COLACE) capsule 100 mg, 100 mg, Oral, BID, Nicole Magaña MD, 100 mg at 01/22/202141 ??? famotidine (PEPCID) tablet 20 mg, 20 mg, Oral, Q48H, Nicole Magaña MD, 20 mg at 01/21/20 0829 ??? furosemide (LASIX) tablet 80 mg, 80 mg, Oral, BID AC, Carmen Blackman MD, 80 mg at 01/20/20 2253 ??? heparin (porcine) injection 1,000 Units, 1,000 Units, Intravenous, TThSat w/ Dialysis, Carmen Blackman MD, 1,000 Units at 01/22/20 1631 ??? HYDROcodone-acetaminophen (NORCO) 5-325 MG per tablet 1 tablet, 1 tablet, Oral, Q6H PRN OR HYDROcodone-acetaminophen (LORCET PLUS) 10-325 MG per tablet 1 tablet, 1 tablet, Oral, Q6H PRN, Nicole Magaña MD, 1 tablet at 01/22/20 183 ??? ondansetron ODT (ZOFRAN-ODT) disintegrating tablet 4 mg, 4 mg, Oral, Q6H PRN, Nicole Magaña MD ??? polyethylene glycol (MIRALAX) packet 17 g, 17 g, Oral, Once a day, Nicole Magaña MD, 17 g at 01/22/20 0823 ??? rOPINIRole (REQUIP) tablet 0.5 mg, 0.5 mg, Oral, Nightly, Nicole Magaña MD, 0.5 mg at 01/22/202141 ??? sevelamer carbonate (RENVELA) tablet 800 mg, 800 mg, Oral, TID with meals, Nicole Magaña MD, 800 mg at 01/22/202142 ??? sodium chloride 0.9 % infusion 0-500 mL, 0-500 mL, Intravenous (Continuous Infusion), PRN During Dialysis, Carmen Blackman MD ??? sodium chloride 0.9 % infusion 200 mL, 200 mL, Intravenous (Continuous Infusion), Once, Carmen Curtis MD ??? tamsulosin (FLOMAX) 24 hr capsule 0.4 mg, 0.4 mg, Oral, Nightly, Nicole Magaña MD, 0.4 mg at 01/22/202142 ??? acetaminophen ??? bisacodyl ??? diphenhydrAMINE ??? HYDROcodone-acetaminophen OR HYDROcodone-acetaminophen ??? ondansetron ODT ??? sodium chloride Physical Exam: General: awake and alert. In NAD Lungs: CTA B/L Heart: RRR, S1 and S2 without rubs Abdomen: Soft, NT/ND, + BS Ext: Without edema Labs: Recent Labs Lab Units 01/21/20 0530 SODIUM MMOL/L BLOOD mmol/L 138 POTASSIUM MMOL/L BLOOD mmol/L 4.5 CHLORIDE mmol/L 99 CO2 mmol/L 29 BUN MG/DL BLOOD mg/dL 29* CREATININE mg/dL 4.52* GLUCOSE MG/DL BLOOD mg/dL 115* CALCIUM MG/DL BLOOD mg/dL 8.9 ANION GAP BLOOD mmol/L 10 Recent Labs Lab Units 01/21/20 0530 SODIUM MMOL/L BLOOD mmol/L 138 POTASSIUM MMOL/L BLOOD mmol/L 4.5 CHLORIDE mmol/L 99 CO2 mmol/L 29 BUN MG/DL BLOOD mg/dL 29* CREATININE mg/dL 4.52* GLUCOSE MG/DL BLOOD mg/dL 115* CALCIUM MG/DL BLOOD mg/dL 8.9 Recent Labs Lab Units 01/21/20 0530 SODIUM MMOL/L BLOOD mmol/L 138 POTASSIUM MMOL/L BLOOD mmol/L 4.5 CHLORIDE mmol/L 99 CO2 mmol/L 29 BUN MG/DL BLOOD mg/dL 29* CREATININE mg/dL 4.52* GLUCOSE MG/DL BLOOD mg/dL 115* CALCIUM MG/DL BLOOD mg/dL 8.9 Recent Labs Lab Units 01/21/20 0530 WBC X(10)9/L BLOOD x10E9/L 5.3 HGB GM/DL BLOOD gm/dL 8.3* HCT % BLOOD % 26.4* PLT CT X(10)9/L BLOOD x10E9/L 226 Assessment/ Plan: ESRD, on IHD TTS, on dialysis now HTN, BP is soft now, BP medications adjusted Anemia due to CKD Advanced arthritis left hip underwent left hip arthoplasty History of recurrent volume overload, now stable on UF History of recurrent hyperkalemia, due to ESRD DM CARMEN BLACKMAN MD [phone] * Tara Alberts RD - 01/22/2020 2:50 PM CDT Nutrition Initial Assessment Note Date: 01/22/2020 Time: 2:50 PM CDT Patient Name: Ferdinand Rasmussen Date of : 1945 Sex: Male Room/Bed: 204/204-1 Principal Problem: Osteoarthritis [M19.90] Admit Date/Time: 01/20/2020 5:10 PM Relevant Medications: Scheduled/Continuous Medications Scheduled Medication Ordered Dose/Rate, Route, Frequency Last Action allopurinol (ZYLOPRIM) tablet 100 mg 100 mg, PO, Once a day Given, 100 mg at 01/21 823 Apixaban (ELIQUIS) tablet 2.5 mg 2.5 mg, PO, BID Given, 2.5 mg at 01/22 824 atorvastatin (LIPITOR) tablet 20 mg 20 mg, PO, Nightly Given, 20 mg at 01/20 2037 dilTIAZem CD (CARDIZEM CD) 24 hr capsule 120 mg 120 mg, PO, Once a day Ordered docusate sodium (COLACE) capsule 100 mg 100 mg, PO, BID Given, 100 mg at 01/21 823 famotidine (PEPCID) tablet 20 mg 20 mg, PO, Q48H Given, 20 mg at 01/20 829 furosemide (LASIX) tablet 80 mg 80 mg, PO, BID AC Given, 80 mg at 01/19 2253 heparin (porcine) injection 1,000 Units 1,000 Units, IV, TThSat w/ Dialysis Ordered polyethylene glycol (MIRALAX) packet 17 g 17 g, PO, Once a day Given, 17 g at 01/21 823 rOPINIRole (REQUIP) tablet 0.5 mg 0.5 mg, PO, Nightly Given, 0.5 mg at 01/20 2038 sevelamer carbonate (RENVELA) tablet 800 mg 800 mg, PO, TID with meals Given, 800 mg at 01/21 114 sodium chloride 0.9 % infusion 200 mL 200 mL, CI, Once Ordered tamsulosin (FLOMAX) 24 hr capsule 0.4 mg 0.4 mg, PO, Nightly Given, 0.4 mg at 01/20 2037 Relevant Labs: Most recent labs reviewed. CBC: Recent Labs Lab Units 01/21/20 0530 WBC X(10)9/L BLOOD x10E9/L 5.3 HGB GM/DL BLOOD gm/dL 8.3* HCT % BLOOD % 26.4* MCV FL BLOOD fl 106.0* RDW-CV % BLOOD % 13.[address] X(10)9/L BLOOD x10E9/L 226 Weight: Admit Weight: 132 lb (59.9 kg) Latest Weight: 132 lb (59.9 kg) (01/20/20 1722) Weight Comment: usual weight 130# Diet Order: Dietary Orders (From admission, onward) Start Ordered 01/21/20 0704 Adult Diet Therapeutic Diet; Renal without dialysis; Regular Texture (7 Regular); AllLiquids (0 Thin) Diet effective now End/Expires: Until Specified Question Answer Comment Diet Type: Therapeutic Diet Therapeutic Diet: Renal without dialysis Diet Texture: Regular Texture (7 Regular) Liquid Consistency All Liquids (0 Thin) Place order in third democrat system. Done 01/21/20 0704 Prior to Admission Food/Nutrient Intake: Current Food/Nutrient Intake Anthropometrics: Height: 5' 10 (177.8 cm) Height Method: Stated Weight: 132 lb (59.9 kg) Historical Weight Trend (Time Frame): usual weight 130# Weight Method: Bed scale BMI Amputation Adjustment: No BSA (Calculated - sq m): 1.72 sq meters BMI (Calculated): 18.9 Weight in (lb) to have BMI = 25: 173.9 Nutrition Focused Physical Findings: Physical Assessment: Yes Scalp/Hair: Dull, lackluster, thin, sparse Face: WDL [place] Region (Temporalis muscle): Slight Depression Orbital Region: WDL Eyes: WDL Nose: WDL Lips: WDL Mouth/Mucose: WDL Teeth: Missing Teeth Skin: Poor skin turgor Wounds: Yes (comment)(hip) Edema: No edema Hand Region: WDL Nails: WDL Clinical Characteristics of Malnutrition: Findings: Unable to determine (add comment)(no weight loss reported) Energy Needs: Total Energy Estimated Needs: 30 - 35 calories/kg (60) = 1800 - 2100 Total Protein Estimated Needs: 1.5 gm protien kg = 90 gms Total Fluid Estimated Needs: 500 mL + output Nutrition Support: No Plan of Care - Nutrition Care Plans (Notes for yesterday and today) 1 Author: Tara Alberts RD Service: -- Author Type: Registered Dietitian Filed: 01/22/2020 2:16 PM Date of Service: 01/22/2020 2:16 PM Status: Signed Regional Sales Associate: Tara Alberts RD (Registered Dietitian) Problem: Increased Nutrient Needs Description: Related to: Increased demand for nutrient (wound healing, chronic infection) As Evidenced By: hip arthroplasty Goal: Clinical Nutrition Goal Outcome: Progressing Flowsheets (Taken 01/22/2020 1402) Primary Goal: Adequate Meals and Snack/Oral Nutrition Supplement Intake Primary Goal Progress: New Primary Indicator/Monitor: po intake 50-100% Secondary Goal: Weight Maintenance Secondary Goal Progress: New Secondary Indicator/Monitor: avoid weight loss Intervention: Medical Nutrition Therapy Interventions Flowsheets (Taken 01/22/2020 1402) Meals and Snacks: General/healthful diet Supplements: (refuses supplements) -- Coordination of Nutrition Care: Continue to Monitor Additional Comments/Recommendations: Reviewed meal ordering process and gave alternative menu selections; Reviewed snacks available uponrequest; Rd name and number given Pt follow low potassium diet at home. He refuses supplements and weights have been stable. Unremarkable labs. Monitor weights TARA ALBERTS RD 01/22/20 2:50 PM CDT * Robbin Brown NP - 01/22/2020 10:10 AM CDT Progress notes [place] CHIEF COMPLAINT Active Problems: Osteoarthritis Subjective: (01/21) Patient seen in during PT time and after in his room .Patient mildly confused ,not in distress Patient stated had good night sleep , no pain. Denies dizziness, BP 91/42 mm/Hg , last Creatinine from 01/20 was 4.52 with BUN 29 ; Hb 8.3,Plt 226 . Left hip lyric on no drainage no discharge History of Present illness The patient is a 74 y.o. y/o male with history of DM, HTN, ESRD on HD, Dementia and placement rightdeep brachial vein arteriovenous fistula 10/20/2019 and with advanced arthritis left hip underwent left hip arthoplasty by Dr. Agudelo currently here for therapy Todays chief Complains Hip pain Ok on pain meds constipation Duration of problems- Intensity Type Associated symptoms Aggrevating/relieving factors History also obtained from review of patients previous acute hospitalization chart, current rehabilitation chart , discussion with family members in the room and discussion with nursing staff taking care of the patient. Review of Systems General: no weight loss, no fever, no chills, no anorexia Skin: no rash Eyes: no blurry vision Ears/Nose/Throat: no nasal congestion, no sore throat Respiratory: no cough, no dyspnea, no wheezing Cardiovascular: no chest pain, no ankle swelling Gastrointestinal: no nausea, no vomiting, no diarrhea, no constipation, no abdominal pain. No melena, no bright red blood per rectum Genitourinary: no dysuria, no hematuria Musculoskeletal: no joint pain, no myalgia, no muscle weakness Neurologic: no seizures, no tremors, no fainting, no focal weakness , tingling or numbness Hematologic/Lymphatic: no abnormal bleeding, no abnormal bruising Endocrine: no heat or cold intolerance, no polydipsia, no polyuria Psychiatric: no anxiety, no depression Allergy/Immunology: no seasonal allergies, no joint stiffness in morning Review of ssytems pertinent as above and all the other 14 organ systems are negative Past Medical History Past Medical History: Diagnosis Date ??? Diabetes mellitus ??? Diabetes mellitus 05/12/2019 ??? End stage renal failure on dialysis 05/12/2019 New to dialysis ??? Hypertension ??? Other abnormal clinical findings ??? Seroma 05/12/2019 Proximal Left thigh 60 x 23 x39 mm by US Past Surgical History No past surgical history on file. Allergies No Known Allergies Home Medications Prior to Admission medications Medication Sig Start Date End Date Taking? Authorizing Provider acetaminophen (TYLENOL) 325 MG tablet 1 tablet (325 mg total) by PO/Per Tube route every 6 (six) hours as needed for mild pain (1 - 3) or Temp > or equal to 101F (38.3C). 05/28/19 Florencia Moulton MD allopurinol (ZYLOPRIM) 100 MG tablet Take 1 tablet (100 mg total) by mouth daily. 05/28/19 Florencia Moulton MD atorvastatin (LIPITOR) 20 MG tablet Take 1 tablet (20 mg total) by mouth daily. 05/28/19 Florencia Moulton MD Diclofenac Sodium (VOLTAREN) 1 % gel Apply 2 g topically 2 (two) times a day. 05/28/19 Florencia Moulton MD docusate sodium (COLACE) 100 MG capsule Take 1 capsule (100 mg total) by mouth daily. 05/28/19 MD Nico donepezil (ARICEPT) 10 MG tablet Take 1 tablet (10 mg total) by mouth nightly. 05/28/19 Florencia Moulton MD folic acid (FOLVITE) 1 MG tablet Take 1 tablet (1 mg total) by mouth daily. 05/28/19 Florencia Moulton MD furosemide (LASIX) 80 MG tablet Take 1 tablet (80 mg total) by mouth 2 (two) times a day diuretic. 05/28/19 Florencia Moulton MD lidocaine (LIDOCARE) 4 % patch patch Place 2 patches on the skin daily. 05/28/19 Florencia Moulton MD oxyCODONE-acetaminophen (PERCOCET) 5-325 MG per tablet Take 1 tablet by mouth every 6 (six) hours as needed for moderate pain (4 - 6). Max Daily Amount: 4 tablets 05/28/19 Florencia Moulton MD rOPINIRole (REQUIP) 0.5 MG tablet Take 1 tablet (0.5 mg total) by mouth Three times per week with dialysis. 05/29/19 Florencia Moulton MD tamsulosin (FLOMAX) 0.4 MG capsule Take 1 capsule (0.4 mg total) by mouth nightly. 05/28/19 Florencia Moulton MD CURRENT Medications Current Facility-Administered Medications: ??? acetaminophen (TYLENOL) tablet 650 mg, 650 mg, Oral, Q6H PRN, Nicole Magaña MD ??? allopurinol (ZYLOPRIM) tablet 100 mg, 100 mg, Oral, Once a day, Nicole Magaña MD, 100 mg at 01/22/20822 ??? Apixaban (ELIQUIS) tablet 2.5 mg, 2.5 mg, Oral, BID, Nicole Magaña MD, 2.5 mg at 01/22/20823 ??? atorvastatin (LIPITOR) tablet 20 mg, 20 mg, Oral, Nightly, Nicole Magaña MD, 20 mg at 01/21/202036 ??? bisacodyl (DULCOLAX) suppository 10 mg, 10 mg, Rectal, Daily PRN, Nicole Magaña MD ??? dilTIAZem CD (CARDIZEM CD) 24 hr capsule 120 mg, 120 mg, Oral, Once a day, Carmen Blackman MD ??? diphenhydrAMINE (BENADRYL) tablet 25 mg, 25 mg, Oral, Q6H PRN, Nicole Magaña MD ??? docusate sodium (COLACE) capsule 100 mg, 100 mg, Oral, BID, Nicole Magaña MD, 100 mg at 01/22/20822 ??? famotidine (PEPCID) tablet 20 mg, 20 mg, Oral, Q48H, Nicole Magaña MD, 20 mg at 01/21/20828 ??? furosemide (LASIX) tablet 80 mg, 80 mg, Oral, BID AC, Carmen Blackman MD, 80 mg at 01/20/202252 ??? heparin (porcine) injection 1,000 Units, 1,000 Units, Intravenous, TThSat w/ Dialysis, Carmen Blackman MD ??? HYDROcodone-acetaminophen (NORCO) 5-325 MG per tablet 1 tablet, 1 tablet, Oral, Q6H PRN OR HYDROcodone-acetaminophen (LORCET PLUS) 10-325 MG per tablet 1 tablet, 1 tablet, Oral, Q6H PRN, Nicole Magaña MD ??? ondansetron ODT (ZOFRAN-ODT) disintegrating tablet 4 mg, 4 mg, Oral, Q6H PRN, Nicole Magaña MD ??? polyethylene glycol (MIRALAX) packet 17 g, 17 g, Oral, Once a day, Nicole Magaña MD, 17 g at 01/22/20822 ??? rOPINIRole (REQUIP) tablet 0.5 mg, 0.5 mg, Oral, Nightly, Nicole Magaña MD, 0.5 mg at 01/21/202037 ??? sevelamer carbonate (RENVELA) tablet 800 mg, 800 mg, Oral, TID with meals, Nicole Magaña MD, 800 mg at 01/22/20822 ??? sodium chloride 0.9 % infusion 0-500 mL, 0-500 mL, Intravenous (Continuous Infusion), PRN During Dialysis, Carmen Blackman MD ??? sodium chloride 0.9 % infusion 200 mL, 200 mL, Intravenous (Continuous Infusion), Once, Carmen Curtis MD ??? tamsulosin (FLOMAX) 24 hr capsule 0.4 mg, 0.4 mg, Oral, Nightly, Nicole Magaña MD, 0.4 mg at 01/21/202036 Social History reports that he has quit smoking. He does not have any smokeless tobacco history on file. Alcohol use questions deferred to the physician. Denies smoking, alcohol or illicit drugs currently Family History No family history on file. No known history of thromboembolism Physical Exam Vital Signs: Temp: [98.3 ??F (36.8 ??C)-99.4 ??F (37.4 ??C)] 98.3 ??F (36.8 ??C) Pulse: [60-71] 70 Resp: [16] 16 BP: (91-122)/(42-65) 91/42 I/O Intake/Output Summary (Last 24 hours) at 01/22/2020 1010 Last data filed at 01/22/2020 0615 Gross per 24 hour Intake 360 ml Output 400 ml Net -40 ml Weights (last 3 days) Date/Time Weight Height BSA (Calculated - sq m) 01/20/20 1722 132 lb (59.9 kg) 5' 10 (1.778 m) 1.72 sq meters WEIGHTS 132 lb (59.9 kg) General appearance: awake, alert, cooperative, no distress, MILDLY Confused HEENT: Normocephalic, No icterus, No oral lesions, Oral and nasal mucosa moist Neck: Supple, no lymphadenopathy Eyes: EOMI, Conjunctiva normal, No discharge Cardiovascular: s1-s2 audible, Normal heart rate, Normal rhythm, No murmurs, No rubs, No gallops Respiratory: Normal breath sounds, No respiratory distress, No wheezing, No rhonchi, No rales, No chest tenderness. GI: Bowel sounds normal, Soft, No tenderness, No rebound or guarding, No masses. Abdomen: soft without mass, non-tender, with normal bowel sounds, +/- Feeding Tube External Genitalia not examined, groin Extremities: no clubbing, cyanosis or edema, no calf tenderness Musculoskeletal:no swelling of joints.no redness, FROM otherjoints Psychologic: Mood and affect appropriate, no suicidal ideation. Skin: No rash, swelling or erythema identified . 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 No clonus Gait not tested ? Please see height, weight, and BP reported elsewhere as part of this encounter Labs CBC with Differential: Lab Results Component Value Date WBC 5.3 01/21/2020 HGB 8.3 (L) 01/21/2020 HCT 26.4 (L) 01/21/2020 PLT 226 01/21/2020 MCV 106.0 (H) 01/21/2020 MCH 33.3 01/21/2020 MCHC 31.4 01/21/2020 RDW 13.0 01/21/2020 [ BMP: Lab Results Component Value Date NA 138 01/21/2020 K 4.5 01/21/2020 CL 99 01/21/2020 CO2 29 01/21/2020 BUN 29 (H) 01/21/2020 CREATININE 4.52 (H) 01/21/2020 GLUCOSE 115 (H) 01/21/2020 CALCIUM 8.9 01/21/2020 ANIONGAP 10 01/21/2020 MG/PHOS: No results found for: MG, PHOS CKMB: No components found for: CKMB;2 PT/INR: No results found for: LABPROT, INR CMP: Lab Results Component Value Date NA 138 01/21/2020 K 4.5 01/21/2020 CL 99 01/21/2020 CO2 29 01/21/2020 BUN 29 (H) 01/21/2020 CREATININE 4.52 (H) 01/21/2020 GLUCOSE 115 (H) 01/21/2020 CALCIUM 8.9 01/21/2020 ANIONGAP 10 01/21/2020 LFT's: No results found for: ALB, PROT Ionized Calcium: No components found for: IONCA ABG: No results found for: PHART, [id number], PO2ART, MQI1FSI, BEART, [id number] HgBA1c: No results found for: HGBA1C Lipid Panel: No results found for: CHOL, TRIG, HDL TSH: No results found for: TSH IMAGING STUDIES & OTHER STUDIES Assessment and plan @ADMDXS@ Active Problems: Osteoarthritis Advanced left hip arthritis ??S/p left hip arthroplasty F/u incision On Eliquis ( A Fib) Pain control Therapy ESRD HD Consult renal follow up with waxer floor MD Carmen Olea 01/21 CMP on Friday Chronic fluid overload Despite dialysis On lasix (01/21 BUN29; creatinine 4.52 Hypertension BP low on, diltiazem, lasix DC lisinopril Dyslipidemia on sLipitor Gout Allopurinol F/U ??Diabetes mellitus--diet??controlled Accu, SSI Atrial fibrillation eliquis for atrial fibrillation Not on rate control F/U daily Anemia with Hb 8.3 fup with cbc on Friday Social service to work on discharge planning Hyperkalemia due to ESRD, K stable Anemia, probably related to his CKD, F/u Dementia Continue aricept Restless leg requip HLD Statin Pain management Today's pain score 3 FEN. Nutrition consult for evaluation of nutritional status and the best diet. And for BMI evaluation and education regarding maintaining a healthy BMI Bladder management Voiding ok Bowel management . Titrate bowel medications for constipation/diarrhea. Skin. Nursing to address skin care throughout stay. Turn every 2 hrs Sleep. Monitor sleep-wake cycle. High Fall risk- Fall precautions GI Prophylaxis: DVT Prophylaxis: Full Resuscitation Comprehensive Rehab Program (including but not limited to): --Nursing: working on bowel and bladder continence, skin integrity, carry over from therapies, environmental safety, and providing patient and family education. --Physical and Occupational Therapy: working on strength, endurance, balance, gait, and technique to improve safety and independence with ADLs and Mobility. --ST: working on oral-motor control, executive skills, memory, orientation, and cognitive skills. --Lion Tamer: discharge plans in the context of social, family, and discharge needs to help coordinate a safe discharge. --Neuropsychology (if applicable): tracking cognitive progress, evaluate memory, behavior, and cognitive function. guide patient and team toward better outcomes through understanding of behavioral and cognitive impairments and the obstacles that manifest by them --Rehabilitation Physician: to determine rehabilitation needs medical rehabilitation needs, will beseen by a kitman at a minimum of 3 times a week. The rehabilitation physician will coordinate care and help manage/prevent complications as a result of the patient???s illness and impairments The patient will receive 24 hour/day rehabilitation nursing supervision along with medical oversight by the medical and rehabilitation physicians to monitor for complications, changes in status, and determine the most appropriate medications to optimize function. The medical team will manage comorbidities and minimize complications such as dehydration, hypoglycemia, aspiration, pneumonia, uncontrolled BP, skin breakdown, contractures, and pain. In combination with intensive, comprehensive and multidisciplinary therapies to optimize function and long-term physical, cognitive, emotional and medical well-being. The patient will expected to participate and receive intensive therapy (an average of 3 hours per day of an average of 5 days weekly) not available in other settings in the inpatient rehabilitation program. The patient???s care will be coordinated through an interdisciplinary team with frequent steam hoist operator interactions and weekly conferences. An individualized plan of care with a minimum of two rehab therapies will be developed for the patient. Please refer to the Storeroom Attendant???s Post Admission Note determining the medical necessity as outlined in the [facility] documents to support admission for Acute Inpatient Rehabilitation Electronically signed by: ROBBIN BROWN NP, 01/22/2020 10:10 AM CDT CC: No primary care provider on file. Cosigned by Misty Hathaway MD at 01/23/2020 9:27 AM CDT Associated attestation - Misty Hathaway MD - 01/23/2020 10:27 AM EDT The patient is being seen for follow-up of all current problems, BP, BS , HR, labs and strength. Follow up on pain, swallowing, bladder and bowel function. Strength improving, able to do therapy ok. I saw and evaluated the patient face to face in conjunction with the BISQUE WARE DIPPER and agree with the management and disposition of the patient. History also obtained from Nurse and staff about how the patient did overnight and during the day. I performed mario portions of the follow up, review of labs and radiology and evaluation. I agree with the subjective, physical exam and assessment and plan details as outlined in the note below. Discussed the mario medical decision making- both assessment and plan, rehabilitation goals and treatment plan with patient, BISQUE WARE DIPPER , nursing staff, kitman and the members of the team. * Thais Gerber RN - 01/21/2020 3:41 PM CDT Met with patient face to face. Explanation of rehab process and role of CM.Patient lives his nephewin a 2 story home with 10 steps with rails in [place], [place]. His bedroom is on the first floor with tub shower combo. Pt has dme in the home: 2 w/w, shower chair and cane. Patient has dialysis Tues, Thurs and sat. 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 He does not drive. His nephew assist with IADL's , while he is independent with bathing and dressing. Thais Gerber GEMOLOGIST CCM * Samreen Stallings PharmD - 01/20/2020 5:44 PM CDT [facility] Note Drug Regimen Review / Medication Reconciliation Performed A Drug Regimen Review / Medication Reconciliation was performed upon Admission for: FERDINAND RASMUSSEN (74 y.o.) Medication orders from the previous facility were reviewed and pended by the pharmacy department. Physician Dr. Magaña was notified that the orders were pended for their review. Medications NA were substituted per Therapeutic Interchange Policy as approved by [employer]. Patient was not receiving Na in acute, these medications were added to home medication list. Physician to review and restart these medications if appropriate during inpatient rehabilitation admission. Medication orders that have been clarified with the physician include: Requip 0.5mg QHS per MAR or 0.5mg 3x/week. Order 0.5mg QHS per Dr. Magaña Patient on Eliquis 2.5mg BID Continued benadryl PRN, pepcid jennie (changed to HD dosing [id number]), zofran PRN, norco doses, tylenol PRN from acute. Continued docusate and miralax frequency as was getting in acute Retacrit 4000units Q7 days on MAR and DC orders but will be deferred to nephrology to order. Medication orders that require further follow-up include: Retacrit to be ordered by nephro The pharmacy department will monitor the medication orders and associated labs during the patient'slength of stay for assurance of medication safety and efficacy. SAMREEN STALLINGS PharmD 5:33 PM CDT documented in this encounter H&P Notes * Misty Hathaway MD - 01/21/2020 4:19 PM CDT Hospitalist History and PhysicAl Examination Report Patient Name: Ferdinand Rasmussen : 1945 Medical Record: [id number] DATE OF ADMISSION 01/20/2020 Date of Service 01/21/2020 PRIMARY CARE PHYSICIAN No primary care provider on file. Attending Physician Mike Zamora MD CHIEF COMPLAINT Active Problems: Osteoarthritis History of Present illness The patient is a 74 y.o. y/o male with history of DM, HTN, ESRD on HD, Dementia and placement rightdeep brachial vein arteriovenous fistula 10/20/2019 and with advanced arthritis left hip underwent left hip arthoplasty by Dr. Agudelo currently here for therapy Todays chief Complains Hip pain Ok on pain meds constipation Duration of problems- Intensity Type Associated symptoms Aggrevating/relieving factors History also obtained from review of patients previous acute hospitalization chart, current rehabilitation chart , discussion with family members in the room and discussion with nursing staff taking care of the patient. Review of Systems General: no weight loss, no fever, no chills, no anorexia Skin: no rash Eyes: no blurry vision Ears/Nose/Throat: no nasal congestion, no sore throat Respiratory: no cough, no dyspnea, no wheezing Cardiovascular: no chest pain, no ankle swelling Gastrointestinal: no nausea, no vomiting, no diarrhea, no constipation, no abdominal pain. No melena, no bright red blood per rectum Genitourinary: no dysuria, no hematuria Musculoskeletal: no joint pain, no myalgia, no muscle weakness Neurologic: no seizures, no tremors, no fainting, no focal weakness , tingling or numbness Hematologic/Lymphatic: no abnormal bleeding, no abnormal bruising Endocrine: no heat or cold intolerance, no polydipsia, no polyuria Psychiatric: no anxiety, no depression Allergy/Immunology: no seasonal allergies, no joint stiffness in morning Review of ssytems pertinent as above and all the other 14 organ systems are negative Past Medical History Past Medical History: Diagnosis Date ??? Diabetes mellitus ??? Diabetes mellitus 05/12/2019 ??? End stage renal failure on dialysis 05/12/2019 New to dialysis ??? Hypertension ??? Other abnormal clinical findings ??? Seroma 05/12/2019 Proximal Left thigh 60 x 23 x39 mm by US Past Surgical History No past surgical history on file. Allergies No Known Allergies Home Medications Prior to Admission medications Medication Sig Start Date End Date Taking? Authorizing Provider acetaminophen (TYLENOL) 325 MG tablet 1 tablet (325 mg total) by PO/Per Tube route every 6 (six) hours as needed for mild pain (1 - 3) or Temp > or equal to 101F (38.3C). 05/28/19 Florencia Moulton MD allopurinol (ZYLOPRIM) 100 MG tablet Take 1 tablet (100 mg total) by mouth daily. 05/28/19 Florencia Moulton MD atorvastatin (LIPITOR) 20 MG tablet Take 1 tablet (20 mg total) by mouth daily. 05/28/19 Florencia Moulton MD Diclofenac Sodium (VOLTAREN) 1 % gel Apply 2 g topically 2 (two) times a day. 05/28/19 Florencia Moulton MD docusate sodium (COLACE) 100 MG capsule Take 1 capsule (100 mg total) by mouth daily. 05/28/19 MD Nico donepezil (ARICEPT) 10 MG tablet Take 1 tablet (10 mg total) by mouth nightly. 05/28/19 Florencia Moulton MD folic acid (FOLVITE) 1 MG tablet Take 1 tablet (1 mg total) by mouth daily. 05/28/19 Florencia Moulton MD furosemide (LASIX) 80 MG tablet Take 1 tablet (80 mg total) by mouth 2 (two) times a day diuretic. 05/28/19 Florencia Moulton MD lidocaine (LIDOCARE) 4 % patch patch Place 2 patches on the skin daily. 05/28/19 Florencia Moulton MD oxyCODONE-acetaminophen (PERCOCET) 5-325 MG per tablet Take 1 tablet by mouth every 6 (six) hours as needed for moderate pain (4 - 6). Max Daily Amount: 4 tablets 05/28/19 Florencia Moulton MD rOPINIRole (REQUIP) 0.5 MG tablet Take 1 tablet (0.5 mg total) by mouth Three times per week with dialysis. 05/29/19 Florencia Moulton MD tamsulosin (FLOMAX) 0.4 MG capsule Take 1 capsule (0.4 mg total) by mouth nightly. 05/28/19 Florencia Moulton MD CURRENT Medications Current Facility-Administered Medications: ??? acetaminophen (TYLENOL) tablet 650 mg, 650 mg, Oral, Q6H PRN, Nicole Magaña MD ??? allopurinol (ZYLOPRIM) tablet 100 mg, 100 mg, Oral, Once a day, Nicole Magaña MD, 100 mg at 01/21/20827 ??? Apixaban (ELIQUIS) tablet 2.5 mg, 2.5 mg, Oral, BID, Nicole Magaña MD, 2.5 mg at 01/21/20827 ??? atorvastatin (LIPITOR) tablet 20 mg, 20 mg, Oral, Nightly, Nicole Magaña MD, 20 mg at 01/20/202252 ??? bisacodyl (DULCOLAX) suppository 10 mg, 10 mg, Rectal, Daily PRN, Nicole Magaña MD ??? dilTIAZem CD (CARDIZEM CD) 24 hr capsule 120 mg, 120 mg, Oral, Once a day, Nicole Magaña MD ??? diphenhydrAMINE (BENADRYL) tablet 25 mg, 25 mg, Oral, Q6H PRN, Nicole Magaña MD ??? docusate sodium (COLACE) capsule 100 mg, 100 mg, Oral, BID, Nicole Magaña MD, 100 mg at 01/21/20827 ??? famotidine (PEPCID) tablet 20 mg, 20 mg, Oral, Q48H, Nicole Magaña MD, 20 mg at 01/21/20828 ??? furosemide (LASIX) tablet 80 mg, 80 mg, Oral, BID AC, Nicole Magaña MD, 80 mg at 01/20/202252 ??? HYDROcodone-acetaminophen (NORCO) 5-325 MG per tablet 1 tablet, 1 tablet, Oral, Q6H PRN OR HYDROcodone-acetaminophen (LORCET PLUS) 10-325 MG per tablet 1 tablet, 1 tablet, Oral, Q6H PRN, Nicole Magaña MD ??? lisinopril (ZESTRIL) tablet 5 mg, 5 mg, Oral, Once a day, Nicole Magaña MD ??? ondansetron ODT (ZOFRAN-ODT) disintegrating tablet 4 mg, 4 mg, Oral, Q6H PRN, Nicole Magaña MD ??? polyethylene glycol (MIRALAX) packet 17 g, 17 g, Oral, Once a day, Nicole Magaña MD, 17 g at 01/21/20 0830 ??? rOPINIRole (REQUIP) tablet 0.5 mg, 0.5 mg, Oral, Nightly, Nicole Magaña MD, 0.5 mg at 01/20/20 2252 ??? sevelamer carbonate (RENVELA) tablet 800 mg, 800 mg, Oral, TID with meals, Nicole Magaña MD, 800 mg at 01/21/20 1208 ??? sodium bicarbonate tablet 325 mg, 325 mg, Oral, Once a day, Nicole Magaña MD, 325 mg at 01/21/20 0830 ??? tamsulosin (FLOMAX) 24 hr capsule 0.4 mg, 0.4 mg, Oral, Nightly, Nicole Magaña MD, 0.4 mg at 01/20/20 2252 Social History reports that he has quit smoking. He does not have any smokeless tobacco history on file. Alcohol use questions deferred to the physician. Denies smoking, alcohol or illicit drugs currently Family History No family history on file. No known history of thromboembolism Physical Exam Vital Signs: Temp: [97.7 ??F (36.5 ??C)-99.2 ??F (37.3 ??C)] 97.7 ??F (36.5 ??C) Pulse: [60-74] 63 Resp: [16-18] 16 BP: (85-112)/(39-57) 112/57 I/O Intake/Output Summary (Last 24 hours) at 01/21/2020 1619 Last data filed at 01/21/2020 0730 Gross per 24 hour Intake 360 ml Output -- Net 360 ml Weights (last 3 days) Date/Time Weight Height BSA (Calculated - sq m) 01/20/20 1722 132 lb (59.9 kg) 5' 10 (1.778 m) 1.72 sq meters WEIGHTS 132 lb (59.9 kg) General appearance: awake, alert, cooperative, no distress, MILDLY Confused HEENT: Normocephalic, No icterus, No oral lesions, Oral and nasal mucosa moist Neck: Supple, no lymphadenopathy Eyes: EOMI, Conjunctiva normal, No discharge Cardiovascular: s1-s2 audible, Normal heart rate, Normal rhythm, No murmurs, No rubs, No gallops Respiratory: Normal breath sounds, No respiratory distress, No wheezing, No rhonchi, No rales, No chest tenderness. GI: Bowel sounds normal, Soft, No tenderness, No rebound or guarding, No masses. Abdomen: soft without mass, non-tender, with normal bowel sounds, +/- Feeding Tube External Genitalia not examined, groin Extremities: no clubbing, cyanosis or edema, no calf tenderness Musculoskeletal:no swelling of joints.no redness, FROM otherjoints Psychologic: Mood and affect appropriate, no suicidal ideation. Skin: No rash, swelling or erythema identified . 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 No clonus Gait not tested ? Please see height, weight, and BP reported elsewhere as part of this encounter Labs CBC with Differential: Lab Results Component Value Date WBC 5.3 01/21/2020 HGB 8.3 (L) 01/21/2020 HCT 26.4 (L) 01/21/2020 PLT 226 01/21/2020 MCV 106.0 (H) 01/21/2020 MCH 33.3 01/21/2020 MCHC 31.4 01/21/2020 RDW 13.0 01/21/2020 [ BMP: Lab Results Component Value Date NA 138 01/21/2020 K 4.5 01/21/2020 CL 99 01/21/2020 CO2 29 01/21/2020 BUN 29 (H) 01/21/2020 CREATININE 4.52 (H) 01/21/2020 GLUCOSE 115 (H) 01/21/2020 CALCIUM 8.9 01/21/2020 ANIONGAP 10 01/21/2020 MG/PHOS: No results found for: MG, PHOS CKMB: No components found for: CKMB;2 PT/INR: No results found for: LABPROT, INR CMP: Lab Results Component Value Date NA 138 01/21/2020 K 4.5 01/21/2020 CL 99 01/21/2020 CO2 29 01/21/2020 BUN 29 (H) 01/21/2020 CREATININE 4.52 (H) 01/21/2020 GLUCOSE 115 (H) 01/21/2020 CALCIUM 8.9 01/21/2020 ANIONGAP 10 01/21/2020 LFT's: No results found for: ALB, PROT Ionized Calcium: No components found for: IONCA ABG: No results found for: PHART, [id number], PO2ART, [id number], BEART, [id number] HgBA1c: No results found for: HGBA1C Lipid Panel: No results found for: CHOL, TRIG, HDL TSH: No results found for: TSH IMAGING STUDIES & OTHER STUDIES Assessment and plan @ADMDXS@ Active Problems: Osteoarthritis Advanced left hip arthritis ??S/p left hip arthroplasty F/u incision Pain control Therapy ESRD HD Consult renal Chronic fluid overload Despite dialysis On lasix F/u renal Hypertension BP low on, lisinopril, lasix DC lisinopril Gout Allopurinol F/U ??Diabetes mellitus--diet??controlled Accu, SSI Atrial fibrillation eliquis for atrial fibrillation Not on rate control F/U Social service to work on discharge planning Hyperkalemia due to ESRD, K stable Anemia, probably related to his CKD, F/u Dementia Continue aricept Restless leg requip HLD Statin Pain management Today's pain score 3 FEN. Nutrition consult for evaluation of nutritional status and the best diet. And for BMI evaluation and education regarding maintaining a healthy BMI Bladder management Voiding ok Bowel management . Titrate bowel medications for constipation/diarrhea. Skin. Nursing to address skin care throughout stay. Turn every 2 hrs Sleep. Monitor sleep-wake cycle. High Fall risk- Fall precautions GI Prophylaxis: DVT Prophylaxis: Full Resuscitation Comprehensive Rehab Program (including but not limited to): --Nursing: working on bowel and bladder continence, skin integrity, carry over from therapies, environmental safety, and providing patient and family education. --Physical and Occupational Therapy: working on strength, endurance, balance, gait, and technique to improve safety and independence with ADLs and Mobility. --ST: working on oral-motor control, executive skills, memory, orientation, and cognitive skills. --Lion Tamer: discharge plans in the context of social, family, and discharge needs to help coordinate a safe discharge. --Neuropsychology (if applicable): tracking cognitive progress, evaluate memory, behavior, and cognitive function. guide patient and team toward better outcomes through understanding of behavioral and cognitive impairments and the obstacles that manifest by them --Rehabilitation Physician: to determine rehabilitation needs medical rehabilitation needs, will beseen by a kitman at a minimum of 3 times a week. The rehabilitation physician will coordinate care and help manage/prevent complications as a result of the patient???s illness and impairments The patient will receive 24 hour/day rehabilitation nursing supervision along with medical oversight by the medical and rehabilitation physicians to monitor for complications, changes in status, and determine the most appropriate medications to optimize function. The medical team will manage comorbidities and minimize complications such as dehydration, hypoglycemia, aspiration, pneumonia, uncontrolled BP, skin breakdown, contractures, and pain. In combination with intensive, comprehensive and multidisciplinary therapies to optimize function and long-term physical, cognitive, emotional and medical well-being. The patient will expected to participate and receive intensive therapy (an average of 3 hours per day of an average of 5 days weekly) not available in other settings in the inpatient rehabilitation program. The patient???s care will be coordinated through an interdisciplinary team with frequent steam hoist operator interactions and weekly conferences. An individualized plan of care with a minimum of two rehab therapies will be developed for the patient. Please refer to the Storeroom Attendant???s Post Admission Note determining the medical necessity as outlined in the [facility] documents to support admission for Acute Inpatient Rehabilitation Electronically signed by: MISTY HATHAWAY MD, 01/21/2020 4:19 PM CDT CC: No primary care provider on file. documented in this encounter Consult Notes * Carmen Blackman MD - 01/21/2020 5:48 PM CDTAssociated Order(s): IP CONSULT TO NEPHROLOGY Patient name: Odale Long : 1945 MR#: [id number] Today's Date: 01/21/2020, Time: 10:48 PM CDT Admission Date: 01/20/2020, Hospital Day: @HD@ Attending MD: Mike Zamora MD Reason for admission: Rehab Reason for consult: ESRD Date of consult: 01/21/2020 MD requesting consult: Nicole Magaña MD PCP: No primary care provider on file. HPI: The patient is a 74 y.o. male well known to me from the past, who has ESRD on HD on TTS at [facility] through right upper arm AVF, his ESRD is due to history of diabetes, hypertension, he also has history of advanced arthritis left hip underwent left hip arthoplasty, now he is admitted here for comprehensive rehab. Upon interview, patient denies fever, shaking chills, lightheadedness, dizziness, vision changes, headaches, sore throat, coughing, short of breath, chest pain, anorexia, nauseousness, vomiting, abdominal pain. Denies any urological symptoms, including dysuria, burning sensation, urgency, prequency, flow problem. Denies excessive cold intolerance, pruritus. Denies fatigue, weakness, focal neurological deficits. Denies skin rash. Past Medical History: Diagnosis Date ??? Diabetes mellitus ??? Diabetes mellitus 05/12/2019 ??? End stage renal failure on dialysis 05/12/2019 New to dialysis ??? Hypertension ??? Other abnormal clinical findings ??? Seroma 05/12/2019 Proximal Left thigh 60 x 23 x39 mm by US No Known Allergies No family history on file. Negative for chronic kidney disease, dialysis or renal transplantation. Social History Socioeconomic History ??? Marital status: [...] Tobacco Use ??? Smoking status: Former Smoker Substance and Sexual Activity ??? Alcohol use: Defer ??? Drug use: Not on file ??? Sexual activity: Defer Lifestyle ??? Physical activity Days per week: [...] Social History Narrative ??? Not on file ROS: Review of Systems - Please see the HPI part of this note. Physical Examination: Vitals: 01/21/20 0730 01/21/20 1125 01/21/20 1710 01/21/20 1951 BP: (!) 97/39 112/57 100/62 122/65 Pulse: 60 63 60 71 Resp: 17 16 16 Temp: 97.7 ??F (36.5 ??C) 99.4 ??F (37.4 ??C) TempSrc: Oral Oral SpO2: 99% 97% 97% 96% Weight: Height: Intake/Output Summary (Last 24 hours) at 01/21/2020 2248 Last data filed at 01/21/2020 1830 Gross per 24 hour Intake 720 ml Output 300 ml Net 420 ml Admission weight: Most recent weight: Exam: General: In no acute distress. Skin: [...] No asterias on overstretched upper extremeties Labs: Recent Labs Lab Units 01/21/20 0530 SODIUM MMOL/L BLOOD mmol/L 138 POTASSIUM MMOL/L BLOOD mmol/L 4.5 CHLORIDE mmol/L 99 CO2 mmol/L 29 BUN MG/DL BLOOD mg/dL 29* CREATININE mg/dL 4.52* GLUCOSE MG/DL BLOOD mg/dL 115* CALCIUM MG/DL BLOOD mg/dL 8.9 ANION GAP BLOOD mmol/L 10 Recent Labs Lab Units 01/21/20 0530 SODIUM MMOL/L BLOOD mmol/L 138 POTASSIUM MMOL/L BLOOD mmol/L 4.5 CHLORIDE mmol/L 99 CO2 mmol/L 29 BUN MG/DL BLOOD mg/dL 29* CREATININE mg/dL 4.52* GLUCOSE MG/DL BLOOD mg/dL 115* CALCIUM MG/DL BLOOD mg/dL 8.9 Recent Labs Lab Units 01/21/20 0530 SODIUM MMOL/L BLOOD mmol/L 138 POTASSIUM MMOL/L BLOOD mmol/L 4.5 CHLORIDE mmol/L 99 CO2 mmol/L 29 BUN MG/DL BLOOD mg/dL 29* CREATININE mg/dL 4.52* GLUCOSE MG/DL BLOOD mg/dL 115* CALCIUM MG/DL BLOOD mg/dL 8.9 Recent Labs Lab Units 01/21/20 0530 WBC X(10)9/L BLOOD x10E9/L 5.3 HGB GM/DL BLOOD gm/dL 8.3* HCT % BLOOD % 26.4* PLT CT X(10)9/L BLOOD x10E9/L 226 Imaging: Renal US CXR Pending. Assessment: ESRD, on IHD TTS HTN, BP is soft now, BP medications adjusted Anemia due to CKD Advanced arthritis left hip underwent left hip arthoplasty History of recurrent volume overload, now stable on UF History of recurrent hyperkalemia, due to ESRD DM Plan: Continue dialysis support for his ESRD, adjust medications due to ESRD, follow intake/output, volume status, respiratory status, closely, monitor electrolytes, and acid/base closely. Pt should be on renal diet. Continue epogen and iron replacement if indicated. Thank you for the privilege of assisting you in this patient's care ! Carmen Blackman Office * Mike Zamora MD - 01/21/2020 2:14 PM CDT [facility] #: [id number] DATE OF CONSULTATION: REASON FOR CONSULTATION: 1. End-stage osteoarthritis of the left hip, status post left total hip arthroplasty 01/12/2020. 2. End-stage renal disease, on hemodialysis. 3. Paroxysmal atrial fibrillation. 4. Dementia. 5. Anemia. 6. Previous history of stroke. 7. Dyslipidemia. 8. Hypertension. 9. Restless legs syndrome. 10. Bladder outlet obstruction related to prostatic hypertrophy. 11. History of gout. CHIEF COMPLAINT: I am doing all right. HISTORY OF PRESENT ILLNESS: This patient is a 74-year-old black male, who was admitted to [facility] on 01/12/2020 with known long-standing osteoarthritis of the left hip with associated bony destruction and remodeling. He was taken to the operating room on the day of admission by Dr. Dylon Agudelo for a left total hip arthroplasty via direct superior approach. Postoperatively, he was cleared for weightbearing as tolerated and has been issued an abductor pad. His postoperative coursehas been significant for management of anemia, likely related to chronic disease, direction of hemod ialysis due to his end-stage renal disease and noted paroxysmal atrial fibrillation. He did undergoan echocardiogram on 01/17/2020, which revealed a preserved ejection fraction of 60% with noted grade 1 diastolic dysfunction. Cardiology recommended continuation of Eliquis for the atrial fibrillation. The patient is being admitted to [facility] at this time to address mobility and self-care deficits prior to returning home with his nephew. PAST MEDICAL HISTORY: Significant for end-stage renal disease, on hemodialysis. He is status post AV fistula placement. He has a history of anemia, stroke, dyslipidemia, hypertension, restless legs syndrome, bladder outlet obstruction, and gout. ALLERGIES: NONE. CURRENT MEDICATIONS: 1. Zyloprim. 2. Eliquis. 3. Lipitor. 4. Cardizem CD. 5. Colace. 6. Pepcid. 7. Lasix. 8. Zestril. 9. MiraLAX. 10. Requip. 11. Renvela. 12. Sodium bicarbonate. 13. Flomax. 14. Tylenol. 15. Dulcolax suppository p.r.n. 16. Lorcet and [place] p.r.n. 17. Zofran p.r.n. FAMILY HISTORY: Significant for family members with hypertension and diabetes mellitus. ADVANCE DIRECTIVE: The patient wishes to remain a full code. There is no advance directive on our files. SOCIAL HISTORY: He denied any current tobacco, alcohol, or illicit drug use. There is a history of quitting tobacco use in 2013. FUNCTIONAL HISTORY: This patient lives with his nephew in an apartment. There are two flights of steps to access the home. He has a tub shower combination in his home. He was previously independent with self-care tasks and ambulation; however, his nephew assist with medication management and bilingual instructor. At present, the patient is needing minimum assistance for ambulating 120-feet with a wheeled walker and he is at a standby assist level for [id number] transfers. He is needing minimum assistance for bathing, supervision for upper body ADL task performance and moderate assistance for lower body dressing. REVIEW OF SYSTEMS: The patient reports no headache or new visual changes. He denies difficulty hearing. He reports no nasal congestion or rhinorrhea. He reports no throat pain or difficulty swallowing. He reports no chest pain or palpitations. He denies coughing or wheezing. He reports no abdominal pain or distention. He indicates that he is continent of urine and stool. He reports adequate control of postoperativepain. He reports no new sensory or motor deficits since hospitalization and he denies any personal history of diabetes or thyroid disease. He reports no fever or chills. He denies any suicidal or homicidal ideation. The rest of the review of systems is negative. PHYSICAL EXAMINATION: GENERAL: Reveals a slender, alert, elderly gentleman, who is oriented x3. HEENT: Reveals a normocephalic, atraumatic head. He is edentulous. CARDIAC: Reveals a regular rate and rhythm. LUNGS: Clear to auscultation, although inspiratory effort is markedly diminished. ABDOMEN: Soft. Bowel sounds are present. : Unremarkable. EXTREMITIES: Reveals a well-healing right lateral thigh incision with lyric in place and an overlying gauze dressing. Homans are negative bilaterally. SKIN: Examination of the skin reveals no breakdown over the sacrum, occiput, or heels. NEUROLOGIC: Cranial nerves 2 through 12 appear to be intact. Motor examination reveals no pronator drift. Manual muscle testing reveals grade 4- strength of the upper extremities and at the left leg,he has grade 4- strength. At the right lower extremity, formal manual muscle testing was deferred proximally, but distally, he does appear to have grade 4- strength at the knee and ankle. Sensory testing yielded some equivocal responses distal to the ankles bilaterally, but overall, he does appear to have preserved pinprick on either side of the face, trunk, and extremities. Deep tendon reflexes are diminished throughout. No ankle clonus was elicited. Cerebellar examination was unremarkable. REHABILITATION TREATMENT PLAN: This patient's rehabilitation program will be coordinated by a kitman. He will be monitored for any new hemodynamic instability during his stay on the rehabilitation unit and hemoglobin will be monitored serially. He will be continued on dialysis under the direction of Nephrology. He will be monitored. Adjustments to his antihypertensive regimen will be made asneeded. The patient will be monitored for any new complaints of constipation given his use of phosphate binders and opiates. The patient will be monitored for any occult urinary retention. Rehabilitation nursing will be providing 24-hour care to ensure carry-over of rehab techniques learned in [facility], provide preventive skin care, bladder and bowel management and pain assessments. Physical andOccupational Therapy will be addressing mobility and self-care goals, reviewing adaptive equipment needs, reviewing mobility and self-care task performance within his hip precaution limitations. All disciplines will be involved in family training as needed. ESTIMATED LENGTH OF STAY: Two weeks. FUNCTIONAL PROGNOSIS: Good. DISCHARGE DESTINATION: Home with family. GOALS: 1. The patient will demonstrate excellent wound healing. 2. He will demonstrate adequate pain management. 3. He will be at a modified independent level for bed mobility. 4. He will be at a modified independent level for transfers. 5. He will be at a minimum assist level for stair and curb navigation. 6. He will be at a modified independent level for basic self-care task performance at a seated level. Doc #: [id number] * Mike Zamora MD - 01/21/2020 1:29 PM CDT #[id number] documented in this encounter Nursing Notes * Delaney Rucker RN - 01/24/2020 7:38 AM CDT Pt slept through night. Continent & voiding per urinal. No complaints of pain. Labwork obtained. documented in this encounter Miscellaneous Notes * Plan of Care - Rosalind Snyder RN - 01/31/2020 9:42 PM CDT Problem: Infection Goal: Absence of infection and prevention of transmission during hospitalization Outcome: Progressing Problem: Fall Safety Goal: Free from fall injury Outcome: Progressing Problem: Knowledge Deficit Goal: Patient and/or family demonstrate readiness to learn Outcome: Progressing Goal: Patient and/or family verbalizes understanding of education, and/or performs desired skill Outcome: Progressing Problem: Discharge Planning Goal: Discharge to home or other facility with appropriate resources Outcome: Progressing Goal: 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 in role Outcome: Progressing Problem: Delirium Goal: Prevent and Manage Delirium Outcome: Progressing Problem: Knowledge Deficit Goal: Patient/family/caregiver demonstrates understanding of disease process, treatment plan, medications, and discharge instructions Outcome: Progressing Problem: Potential for Compromised Skin Integrity Goal: Skin integrity is maintained or improved Outcome: Progressing Goal: Nutritional status is improving Outcome: Progressing Problem: Urinary Incontinence Goal: Perineal skin integrity is maintained or improved Outcome: Progressing Problem: Bowel Incontinence Goal: Perineal Skin Integrity is Maintained or Improved Outcome: Progressing Problem: Pain Goal: Patient's Pain/Discomfort is Manageable Outcome: Progressing Problem: Knowledge Deficit Goal: Patient/family/caregiver demonstrates understanding of disease process, treatment plan, medications, and discharge instructions Outcome: Progressing Problem: Potential for Compromised Skin Integrity Goal: Skin integrity is maintained or improved Outcome: Progressing Goal: Nutritional status is improving Outcome: Progressing Problem: Urinary Incontinence Goal: Perineal skin integrity is maintained or improved Outcome: Progressing Problem: Bowel Incontinence Goal: Perineal Skin Integrity is Maintained or Improved Outcome: Progressing * Plan of Care - Estrella Ford RN - 01/31/2020 5:42 PM CDT Problem: Infection Goal: Absence of infection and prevention of transmission during hospitalization Outcome: Progressing Problem: Fall Safety Goal: Free from fall injury Outcome: Progressing Problem: Knowledge Deficit Goal: Patient and/or family demonstrate readiness to learn Outcome: Progressing Goal: Patient and/or family verbalizes understanding of education, and/or performs desired skill Outcome: Progressing Problem: Discharge Planning Goal: Discharge to home or other facility with appropriate resources Outcome: Progressing Goal: 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 in role Outcome: Progressing Problem: Delirium Goal: Prevent and Manage Delirium Outcome: Progressing Problem: Knowledge Deficit Goal: Patient/family/caregiver demonstrates understanding of disease process, treatment plan, medications, and discharge instructions Outcome: Progressing Problem: Potential for Compromised Skin Integrity Goal: Skin integrity is maintained or improved Outcome: Progressing Goal: Nutritional status is improving Outcome: Progressing Problem: Urinary Incontinence Goal: Perineal skin integrity is maintained or improved Outcome: Progressing Problem: Bowel Incontinence Goal: Perineal Skin Integrity is Maintained or Improved Outcome: Progressing Problem: Knowledge Deficit Goal: Patient/family/caregiver demonstrates understanding of disease process, treatment plan, medications, and discharge instructions Outcome: Progressing * OT Discharge Summary - Carlos Caba OT - 01/31/2020 5:16 PM CDT Occupational Therapy Discharge Summary Patient Name: Ferdinand Rasmussen Patient Birthdate: 1945 OT Current Functional Status: Ferdinand Rasmussen is completing the following: EATING: with modified independence ORAL HYGIENE:with modified independence TOILETING:with supervision BATHING:with setup assistance UPPER BODY DRESSING:with modified independence LOWER BODY DRESSING: with supervision using AE and verbal cues FOOTWEAR:with supervision using AE and verbal cues ROLL RIGHT/LEFT:with modified independence SIT TO LYING:with modified independence LYING TO SIT: with modified independence SIT TO STAND: with modified independence CHAIR/BED TO CHAIR TRANSFER:with modified independence TOILET TRANSFER:with modified independence Ferdinand Rasmussen has demonstrated progress eating, oral care, bathing, dressing bed mobility and functional transfers. Mr. Rasmussen also demonstrates improved endurance, standing tolerance and effective use ofadaptive equipment. Ferdinand Rasmussen continues to present with impaired functional mobility, impaired balance, impaired cognition, delayed processing/direction following, and impaired strength limiting independence with ADLs and functional transfers. Odale Long would benefit from continued OT in the homehealth setting to maximize safety/independence with self-care, functional mobility, IADL participation, leisure pursuits and community access/mobility. Facilitating Factors in Goal Achievement: Patient understanding and knowledge, Improved functional mobility, Improved balance, Improved strength, Use of compensatory strategies and Decrease in pain Barriers to Goal Achievement: Balance deficits, Diminished endurance, Decreased safety awareness, Strength limitations and Cognitive deficits Date Last Assessed: 01/31/2020 Patient needs assistance with the following activities: Activities of daily living, Sitting balance, Reaching, Going out in the community, Use of bathroom equipment, Positioning, Rolling and Memory CARE Scores Mario: 6: Independent. [place] provides no assistance with tasks. A device may or may not have been used. 5: Set-up or clean-up assistance. [place] sets up or cleans up, but does not assist with tasks. [place] may have assisted prior to or following the activity. 4: Supervision or touching assistance. [place] provides verbal cues or touching/steadying or contactguard assistance. Assistance may be provided throughout the activity or intermittently. 3: Partial/moderate assistance. [place] does less than half the effort. [place] lifts, holds, or supports trunk or limbs, but provides less than half the effort. 2: Substantial/maximal assistance. [place] does more than half the effort. [place] lifts or holds trunk or limbs, and provides more than half the effort. 1: Dependent. [place] does all of the effort, or the assistance of two or more helpers is required for the patient to complete the activity. -: Inconsistent or incomplete documentation Activity not attempted values: 7: Patient refused 9: Not applicable - Not attempted and the patient did not perform this activity prior to the current illness, exacerbation, or injury. 10: Not attempted due to environmental limitations (e.g., lack of equipment, weather constraints) 88: Not attempted due to medical condition or safety concerns Senior Living Goals: Goal Goal Status Discharge Status Eating LTG: Independent Achieved Eating - CARE Score: 6 (01/31/201654 : Carlos Caba OT) Oral Hygiene LTG: Independent Achieved Oral Hygiene - CARE Score: 6 (01/31/201654 : Carlos Caba OT) Toileting Hygiene LTG: Independent Not Achieved Toileting Hygiene - CARE Score: 4 (01/31/201654 : Carlos A Edward, OT) Shower/Bathe Self LTG: Supervision or touching assistance Achieved Shower/Bathe Self - CARE Score: 5 (01/31/201654 : Carlos Caba OT) Upper Body Dressing LTG: Independent Achieved Upper Body Dressing - CARE Score: 6 (01/31/201654 : Carlos Caba OT) Lower Body Dressing LTG: Supervision or touching assistance Achieved Lower Body Dressing - CARE Score: 4 (01/31/201654 : Carlos Caba OT) N/A or No Goal Listed Putting On/Taking Off Footwear - CARE Score: 4 (01/31/201654 : Carlos Caba OT) N/A or No Goal Listed Roll Left and Right - CARE Score: 6 (01/31/201654 : Carlos Caba OT) N/A or No Goal Listed Sit to Lying - CARE Score: 6 (01/31/201654 : Carlos Caba OT) N/A or No Goal Listed Lying to Sitting on Side of Bed - CARE Score: 6 (01/31/201654 : Carlos Caba OT) N/A or No Goal Listed Sit to Stand - CARE Score: 6 (01/31/201654 : Carlos Caba OT) Chair/Doy-fi-Lowqw Transfer LTG: Independent Achieved Chair/Ond-yy-Uuufn Transfer - CARE Score: 6 (01/31/201654 : Carlos Caba OT) Toilet Transfer LTG: Independent Partially Achieved Toilet Transfer - CARE Score: 6 (01/31/201654 : Carlos Caba OT) Discharge Instructions given to patient: Don't forget to follow your hip precautions until your doctor says otherwise. No bending past 90 degrees at the hips No internal rotation (or pigeon toeing) of your foot No crossing your legs CARLOS CABA OT 01/31/2020 * PT Discharge Summary - Kylie Sanchez, PT - 01/31/2020 12:49 PM CDT Physical Therapy Discharge Summary Patient Name: Ferdinand Rasmussen Patient Birthdate: 1945 PT CURRENT FUNCTIONAL STATUS: PT Current Functional Status: PT Current Functional Status: Mr. Ferdinand Rasmussen's current functional mobility is as follows. TRANSFERS: Sit to and from stand with modified independence using rolling walker. Stand pivot transfer with modified independence using rolling walker. Car transfer with modified independence using rolling walker. GAIT: Ambulates up to 200 feet with rolling walker and modified independence using rolling walker. Ambulates across uneven surface with rolling walker and modified independence with safety concerns. ELEVATIONS Ascends/descends 20 steps at 6 inches each with bilateral handrails and modified independence (however requires assistance for placement of RW at top/bottom of steps for home entry). Ascends/descends 6 inch curb step: (see above). WHEELCHAIR ASSESSMENT: propels manual wheelchair up to 150 feet with close supervision and verbal cues for safety and sequencing. OBJECT LIFE SCIENCES MANAGER: Picks up object from the floor with use of rolling walker and fuse cup expander and modified independence. ?? Standardized Assessment: 2 Minute Walk Test: 98 feet with rolling walker; 6 Minute Walk Test: 212 feet with rolling walker; Timed Up and Go: 58.2 seconds with rolling walker. ?? He presents with the below listed impairments. He is to discharge to home at this time with recommended follow up home health therapy services where he would benefit from skilled rehabilitation services at this time in order to further improve upon the below listed impairments and prepare for return to prior level of function and maximize independence and safety. Factors in Goal Achievement: Facilitating Factors: Use of compensatory strategies, Improved functional mobility, Improved function, Improved strength, Improved balance and Improved safety awareness Barriers: ROM limitations, Balance deficits, Diminished endurance, Strength limitations, Decreased safety awareness, Impaired skin integrity, Decreased patient understanding and Cognitive deficits Date Last Assessed: 01/31/2020 Patient needs assistance with the following activities: Balance, Negotiating ramps or curbs, Negotiating stairs, Use of ambulatory device, Walking and/or mobility and Wheelchair management RLE: Weight-bearing as tolerated LLE: Weight-bearing as tolerated DME Recommendations Common Therapy DME: Walker(currently owns) CARE Scores Mario: 6: Independent. [place] provides no assistance with tasks. A device may or may not have been used. 5: Set-up or clean-up assistance. [place] sets up or cleans up, but does not assist with tasks. [place] may have assisted prior to or following the activity. 4: Supervision or touching assistance. [place] provides verbal cues or touching/steadying or contactguard assistance. Assistance may be provided throughout the activity or intermittently. 3: Partial/moderate assistance. [place] does less than half the effort. [place] lifts, holds, or supports trunk or limbs, but provides less than half the effort. 2: Substantial/maximal assistance. [place] does more than half the effort. [place] lifts or holds trunk or limbs, and provides more than half the effort. 1: Dependent. [place] does all of the effort, or the assistance of two or more helpers is required for the patient to complete the activity. -: Inconsistent or incomplete documentation Activity not attempted values: 7: Patient refused 9: Not applicable - Not attempted and the patient did not perform this activity prior to the current illness, exacerbation, or injury. 10: Not attempted due to environmental limitations (e.g., lack of equipment, weather constraints) 88: Not attempted due to medical condition or safety concerns Senior Living Goals: Goal Goal Status Discharge Status Car Transfer LTG: Supervision or touching assistance(Pt to perform car transfer with LRAD and distant supervision.) Achieved Car Transfer - CARE Score: 6 (01/31/201225 : Kylie Sanchez PT) Walk 10 Feet - CARE Score: 6 (01/31/201225 : Kylie Sanchez PT) Walk 50 Feet with Two Turns - CARE Score: 6 (01/31/201225 : Kylie Sanchez PT) Walk 150 Feet LTG: Independent(Pt to ambulate up to 150 feet with LRAD and Mod I) Achieved Walk 150Feet - CARE Score: 6 (01/31/201225 : Kylie Sanchez PT) Walking 10 Feet on Uneven Surfaces - CARE Score: 6 (01/31/201225 : Kylie Sanchez PT) 1 Step (Curb) - CARE Score: 6 (01/31/201225 : Kylie Sanchez PT) 4 Steps - CARE Score: 6 (01/31/201225 : Kylie Sanchez PT) 12 Steps LTG: Supervision or touching assistance(Pt to ascend/descend at least 12 steps at 6 incheseach with B HR and supervision to safely enter/exit the home with supervision of family.) Achieved 12 Steps - CARE Score: 6 (01/31/201225 : Kylie Sanchez PT) Picking Up Object - CARE Score: 6 (01/31/20 1226 : Kylie Sanchez PT) Wheel 50 Feet with Two Turns - CARE Score: 4 (01/31/20 1226 : Kylie Sanchez PT) Wheel 150 Feet - CARE Score: 4 (01/31/20 1226 : Kylie Sanchez PT) PT Other Dry Transfer Man Goals Most Recent Value Other PT Dry Transfer Man Goals Other Goals - Senior Living Dry Transfer Man 1, Senior Living 2 Filed on: 01/21/20201456 Other Senior Living Goal 1 Pt to perform all transfer mobility with LRAD and Mod I. Filed on: 01/21/20201456 Other Dry Transfer Man Goal 1 Status Established Filed on: 01/21/20201456 Other Senior Living Goal 2 Pt to perform 2MWT with a distance of at least 70 feet with LRAD. 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 Agreeable to therapy. Pain Assessment Pain Context: Therapy Assessment Prior to Treatment (01/31/20 1034) Pain Assessment: None/denies pain (01/31/20 1034) Surface: Even surface, Indoor and Uneven surface Assistive Device: RW Ambulation Level of Assistance: Modified Independent Distance (feet): 200 Gait Analysis: 1 x 173' with RW and Mod I over even surfaces. Pt demonstrates increased distance from RW and DEONNA, decreased foot clearance (shuffling gait pattern), increased reliance on UE support for balance, decreased stance time on L LE, and decreased overall gait speed. Pt requires seated restbreak upon completion. 1 x 200 feet over even and uneven surfaces with RW and Mod I (Mod I with safety concerns over uneven surfaces). Pt demonstrates similar overall gait deviations and no noted LOB. Seated rest break upon completion. 2 x 30' with ambulation to/from toilet this session for simulated use of restroom and toilet transfers: pt performs with Mod I and increased time to complete. Rails: Bilateral Stairs Level of Assistance: Modified Independent Stairs Height of Step: 6-inch Stair Analysis: See Ther Act for details: Number of Steps: 20 Transfer to 1: Stand Transfer from 1: Wheelchair Technique 1: Sit to stand and Stand to sit Transfer Level of Assistance 1: Modified Independent Trials/Comments1: With UE support and increased time to complete. No noted LOB and proper sequencing noted throughout session. Transfer to 2: Wheelchair Transfer from 2: Stand Technique 2: Ambulatory and Stand pivot Transfer Level of Assistance 2: Modified Independent Trials/Comments 2: Increased time to complete and use of UE support from RW. Pt demonstrates full turn prior to initiation of sitting. Transfer to 3: Toilet Transfer from 3: Stand Technique 3: Ambulatory and Stand pivot Transfer Level of Assistance 3: Modified Independent Trials/Comments 3: Pt performs 1 x to/from toilet with Mod I throughout transfer. Pt indicates comfort with performing at home without assistance. Wheelchair Level of Assistance: Distant Supervision Distance Traveled in Wheelchair (feet): 150 Wheelchair Type: Manual Wheelchair cushion: Pressure relieving Surface: Even surface and Indoor Propulsion Method: Bilateral upper extremity and Bilateral lower extremity Wheelchair Propulsion Level of Assistance: Close Supervision Wheelchair Analysis: Pt requires significantly increased time to complete overall and use of LE's for steering and UE's for force production. Pt requires seated rest break upon completion. Therapeutic Activities and Neuromuscular Re-education: STAIR MOBILITY: - Pt performs up/down 1 x 20 steps at 6 inches each with B HR and Mod I. He demonstrates with non-reciprocal pattern leading up with R LE and down with L LE first and anterior approach each direction. Pt demonstrates no noted LOB and proper step sequencing with no verbal cues. Pt does demonstrate increased forward trunk flexion throughout and increased reliance on UE support for balance. Seated rest break upon completion. - Pt then given visual demonstration of ascending/descending stairs with management of RW up down in order to simulate necessary level of mobility to ascend/descend stair at home without any assistance. Pt requires CGA when ascending/descending 4 steps with management of RW and Min verbal cues throu ghout. Pt requires seated rest break upon completion. Discussed recommendation to have a helper present to manage RW when negotiating stairs. Pt indicates understanding. Seated rest break upon completion. Were respiratory Interventions provided?: No PT Treatment Outcomes:: Patient is progressing toward STG, Patient tolerated treatment well, Safetydevice reapplied, Cues needed for safety, Improved ambulation performance, Improved balance and coordination, Improved transfer ability noted, Improving overall functional endurance noted and Improved safety awareness PT Summary:: Patient remained up sitting in chair at end of session with pelvic positioning belt on, chair alarm in place, call light and phone within reach. Pt would benefit from continued skilled PT services at this time in order to further improve upon the above listed impairments and to maximize functional strength and mobility at this time in order to prepare for safe discharge. PT Summary Plan of Care: Continue with current plan of care Pain Evaluation and Follow-up Pain Reassessment: No pain (01/31/20 1203) Nursing notified of patient's pain assessment: Not indicated - pain score 2 or less (01/31/20 1203) Therapy Minutes Individual Concurrent Co-Treat Time In : 1034 Time Out: 1204 Total Time with Patient (Min): 90 min Missed Minutes : 0 KYLIE SANCHEZ PT 01/31/2020 * OT Treatment Note - Carlos Caba OT - 01/31/2020 9:02 AM CDT Occupational Therapy Treatment Patient Name: Ferdinand Rasmussen Patient Birthdate: 1945 Pain Assessment Pain Context: Therapy Assessment Prior to Treatment (01/31/20 0900) Pain Assessment: None/denies pain (01/31/20 09) ADL Status: Eating: Modified Independent Eating Where Assessed: Sitting at table Feeding Comments: With increased time per nursing and pt report. Grooming: Modified Independent Grooming Where Assessed: Sitting at sink Grooming Comments: Pt able to complete oral care and face washing with increased time only. No verbal cues/physical assist required. Bathing: Setup Bathing Where Assessed: Sponge bath seated in chair and Sponge bath standing at sink Bathing Comments: Pt participates in full body sponge bath while seated/standing at sink. Pt provided with assist for setup/item retrieval and to initiate task. Pt able to complete bathing with increased time and use of sink for UE support during dynamic balance. Pt demos improved standing tolerance - standing for approximately 15 minutes this date while bathing. Dressing Upper Body: Modified Independent Upper Body Dressing Where Assessed: Sitting in chair Upper Body Dressing Comments: Pt retrieves item from closet and dons/doff shirt with increased timewhile seated/standing. Dressing Lower Body: Close Supervision Lower Body Dressing Where Assessed: Sitting in chair and Standing Lower Body Dressing Adaptive Equipment: Manager Category and Dressing stick Lower Body Dressing Comments: Pt requires reminders for following hip precautions and use of fuse cup expander/dressing stick to don/doff pants and underwear. Pt able to don/doff LB items with increased time only. Other Lower Body Dressings: Yes Sock Level of Assistance: Close Supervision (Pt requires cues for effective use of sockaide and foradherence to hip precautions. Pt able to complete with significantly increased time. ) Bed, Chair, Wheelchair Transfer: Modified Independent Bed/Chair Transfer to: Sit, Stand, Wheelchair and Bed Bed/Chair Transfer from: Sit, Stand and Wheelchair Bed/Chair Transfer Technique: Stand to sit, Sit to stand and Ambulatory Assistive Devices Used: Walker Bed/Chair Transfer Comments: Increased time and use of RW only. Pt completes without verbal cues/physical assistance. Treatment, Outcomes and Plan: OT Narrative:: Pt participates well in therapy on this date demonstrating improved independence with functional mobility, transfers, dressing and bathing. Patient remained up sitting in chair at end of session with pelvic positioning belt on, chair alarm in place, call light and phone within reach. OT Treatment Outcomes:: Safety device reapplied and Patient tolerated treatment well OT Summary Plan of Care: Continue with current plan of care Pain Evaluation and Follow-up Pain Reassessment: No pain (01/31/20943) Nursing notified of patient's pain assessment: Not indicated - pain score 2 or less (01/31/20943) Therapy Minutes Individual Concurrent Co-Treat Time In : 901 Time Out: 946 Total Time with Patient (Min): 45 min Missed Minutes : 0 CARLOS CABA OT 01/31/2020 CHART CORRECTION: Type of Chart Edit: Correction Reason for Correction: Incorrect time entry Name: Carlos Edward OTR/L Date: 01/31/2020 Time: 10:56 * PT Group Treatment - Emelina Grant, PT - 01/31/2020 8:18 AM CDT Physical Therapy Group Treatment Patient Name: Ferdinand Rasmussen Patient Birthdate: 1945 Patient Subjective Report - Pt sitting at bedside, agreeable to begin therapy group session. Pain Assessment Pain Context: Therapy Assessment Prior to Treatment (01/31/20817) Pain Assessment: None/denies pain (01/31/20817) Pain Score: 0 - No pain (01/31/20817) Name of Group Session:: Lower Extremity Therex Group and Dynamic Balance and Gait Group Patient's Indvidualized Goals for Group Session:: Decrease falls & fear of falling, Enhance sitting or standing balance, Facilitate discharge to the community, Improve gait in community setting, Improve quality of movements, Improve motor initating skills, Improve seated/standing weight shifting and Lower extremity strength and endurance Justification for Group Intervention: To provide psychosocial support and improve participation inoverall rehab program, Facilitate learning through peer interactions, Provide additional environmental stimulation to challenge skill development, Refine quality of motor skills with increased challenges of a social setting, Prepare for discharge to community with motor performance in social setting and Motor skills training in structured social setting Skilled Services Provided: Activity was graded or modified to meet the patient's needs Education provided:: Educated on ambulation, tolerance to positional changes, LE strengthening, transfers, and safety in group setting. Patients Response to Treatment:: He expressed positive feelings for having worked in group setting,supported other group members, and tolerated session well. Returned to room with seat belt and chair alarm on. Progress Towards Goals:: Goals met for session, Improved strength demonstrated with repeated trails, Safety techniques practiced and improvements noted, Strategies effectively used and Tolerated treatment with modifications to task as needed Group Note Narrative Summary:: Mr. Rasmussen attended group session this AM designed to improve LE strength, ambulation, and functional mobility as well as promote the benefits of group interaction such as increased motivation and psychological wellbeing. Initiate with ambulation x 180 feet with WW and supervision- cues throughout for upright posture and walker management. Additionally performs the following BLE strengthening exercises in standing with WW for carryover to improved strength needed for functional transfers and mobility, x15 each: marches, fwd hip flex, hamstring curls, hip ext, B heel raise, mini squat. Cues required throughout for sequencing and technique and review post hip precautions prior to performance with good carryover noted- however requires cues to not demonstrate precautions as he explains them. Finish session with blocked practice STS x 5 to WW for carryover to improved cardiovascular endurance and independence with functional transfers- cues for reaching backto w/c prior to sitting for safety. Pt expressed positive feelings for having worked in group setting. Pt on RA throughout. Tolerates treatment session well. Patient benefited from participation in the ambulation and LE strengthening group treatments as evidenced by improved functional endurance and strength with Plan for continued interventions:: Continue with current plan of care Pain Evaluation and Follow-up Pain Reassessment: No pain (01/31/20902) Nursing notified of patient's pain assessment: Not indicated - pain score 2 or less (01/31/20902) Time In : 817 Time Out: 902 Breaks/Pauses (Min): 0 mins Time calculation (min): 45 min Missed Minutes : 0 EMELINA GRANT, PT 01/31/2020 * Plan of Care - Una Villavicencio I RN - 01/31/2020 5:56 AM CDT Problem: Infection Goal: Absence of infection and prevention of transmission during hospitalization Outcome: Progressing Problem: Fall Safety Goal: Free from fall injury Outcome: Progressing Problem: Knowledge Deficit Goal: Patient and/or family demonstrate readiness to learn Outcome: Progressing Goal: Patient and/or family verbalizes understanding of education, and/or performs desired skill Outcome: Progressing Problem: Discharge Planning Goal: Discharge to home or other facility with appropriate resources Outcome: Progressing Goal: 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 in 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 Outcome: Progressing Problem: Delirium Goal: Prevent and Manage Delirium Outcome: Progressing Problem: Knowledge Deficit Goal: Patient/family/caregiver demonstrates understanding of disease process, treatment plan, medications, and discharge instructions Outcome: Progressing Problem: Potential for Compromised Skin Integrity Goal: Skin integrity is maintained or improved Outcome: Progressing Goal: Nutritional status is improving Outcome: Progressing Problem: Urinary Incontinence Goal: Perineal skin integrity is maintained or improved Outcome: Progressing Problem: Bowel Incontinence Goal: Perineal Skin Integrity is Maintained or Improved Outcome: Progressing Problem: Pain Goal: Patient's Pain/Discomfort is Manageable Outcome: Progressing Problem: Knowledge Deficit Goal: Patient/family/caregiver demonstrates understanding of disease process, treatment plan, medications, and discharge instructions Outcome: Progressing Problem: Potential for Compromised Skin Integrity Goal: Skin integrity is maintained or improved Outcome: Progressing Goal: Nutritional status is improving Outcome: Progressing Problem: Urinary Incontinence Goal: Perineal skin integrity is maintained or improved Outcome: Progressing Problem: Bowel Incontinence Goal: Perineal Skin Integrity is Maintained or Improved Outcome: Progressing * OT Treatment Note - Yolande Garcia OT - 01/30/2020 11:15 AM CDT Occupational Therapy Treatment Patient Name: Ferdinand Rasmussen Patient Birthdate: 1945 Patient Subjective Report - I had a lot of pain last night but nothing hurts now. Pain Assessment Pain Context: Therapy Assessment During Treatment (01/30/201114) Pain Assessment: None/denies pain (01/30/201114) ADL Status: Bed, Chair, Wheelchair Transfer: Contact Guard Bed/Chair Transfer to: Wheelchair Bed/Chair Transfer from: Wheelchair Bed/Chair Transfer Technique: Ambulatory Assistive Devices Used: Walker Bed/Chair Transfer Comments: CGA due to weakness and impaired balance with use of FWW - cues for safety/technique OT Therapeutic Activity: Therapeutic Activity: Pt completed alvarez bag toss to address standing balance, standing tolerance and dynamic reaching. Pt initially stands with 1UE support on FWW with CGA to complete task and fair+ balance - task requires pt to reach outside DEONNA to retrieve alvarez bags for tossing. Pt then completestask in unsupported standing with BUE support with fair+ task. No fatigue noted with task. Endurance: Pt participated in functional mobility task throughout therapy gym to improve standing balance, standing tolerance and activity tolerance to support ADLs and mobility. Pt tolerates standing ~5 minutes x 2 with mobility before requiring seated rest break. Pt utilizes FWW with CGA due to weakness and impaired balance as well as v/cs for upright posture and keeping FWW close. Pt then completed functional mobility task in gym with use of FWW to locate 8 multicolored cones to address wayfinding through a crowded gym, visual scanning/environmental awarness to locate objects, safety awareness and dynamic reaching to brain picker cones. Pt locates 5/8 cones without assist and requires cues tolocate remaining 3. At end of session pt demos ability to ambulate from therapy gym to room 204 (~3-4 minutes) utilizing FWW and CGA - min c/o fatigue at end of session - states BLE are tired, but nopain. Treatment, Outcomes and Plan: OT Narrative:: Pt participated well in session Patient remained up sitting in chair at end of session with pelvic positioning belt on, chair alarm in place, call light and phone within reach. OT Treatment Outcomes:: Safety device reapplied and Patient tolerated treatment well OT Summary Plan of Care: Continue with current plan of care Pain Evaluation and Follow-up Nursing notified of patient's pain assessment: Not indicated - pain score 2 or less (01/30/201114) Therapy Minutes Individual Concurrent Co-Treat Time In : 1115 Time Out: 1200 Total Time with Patient (Min): 45 min Missed Minutes : 0 YOLANDE GARCIA OT 01/30/2020 * PT Treatment Note - Oumou Guevara, LINING STITCHER - 01/30/2020 9:47 AM CDT PT Treatment Patient Name: Ferdinand Rasmussen Patient Birthdate: 1945 Patient Subjective Report - I'm ok. Pain Assessment Pain Context: Therapy Assessment Prior to Treatment (01/30/20946) Pain Assessment: None/denies pain (01/30/20946) Pain Score: 0 - No pain (01/30/20946) Vital Signs BP: 134/53(after ambulating 200 feet.) (01/30/20946) MAP (mmHg): 80 (01/30/20946) BP Location: Left arm (01/30/20946) BP Method: Automatic (10/04/20 0947) Patient Position: Sitting (01/30/20 0947) Bed Mobility: Performed on bed and Short sit to - from supine Bed Mobility Level of Assistance: Close Supervision Bed Mobility Comment: With HOB slightly elevated and use of bed rail, requires extra time, cues hipprecautions. Surface: Even surface, Indoor and Smooth surface Assistive Device: RW Ambulation Level of Assistance: Contact Guard Distance (feet): 200 Gait Analysis: Displays shuffled gait (decreased step length and clearance), absent heel+toe, flexed posture while remaining outside of walker, and a slow joao. Cues for bigger steps, improved posture and staying closer to walker with little to no carry over. Rails: Bilateral Assistive Device: No device Stairs Level of Assistance: Close Supervision Stairs Height of Step: 6-inch Stair Analysis: Negotiated 4 steps x 3 reps with B hand rails, close SBA, and appropriate step-to pattern without cues. Extra time required. Number of Steps: 12 Transfer to 1: Stand Transfer from 1: Wheelchair Technique 1: Sit to stand Transfer Level of Assistance 1: Contact Guard and Close Supervision Trials/Comments1: CGA-SBA with RW present. Transfer to 2: Wheelchair Transfer from 2: Bed Technique 2: Stand pivot Transfer Level of Assistance 2: Contact Guard Trials/Comments 2: With RW, requires extra time. Activity Type: Standing Activity Endurance: Fair Activity comment: Requires extra time for ambulation and transfers. Therapeutic Activities and Neuromuscular Re-education: FUNCTIONAL ENDURANCE: 6 Step Taps x 15 per side (alternating) with B UE support on RW, SBA for safety, requires extra time to complete. PT Treatment Outcomes:: Patient tolerated treatment well PT Summary:: Focused on gait training, stairs and functional endurance. Patient was returned to hisroom with WC belt and alarm in place and nursing call light in reach. PT Summary Plan of Care: Continue with current plan of care Pain Evaluation and Follow-up Pain Reassessment: No pain (01/30/20 1031) Nursing notified of patient's pain assessment: Not indicated - pain score 2 or less (01/30/20 1031) Therapy Minutes Individual Concurrent Co-Treat Time In : 0947 Time Out: 1032 Breaks/Pauses (Min): 0 mins Total Time with Patient (Min): 45 min Missed Minutes : 0 OUMOU GUEVARA PTA 01/30/2020 * Plan of Care - Estrella Ford RN - 01/30/2020 9:19 AM CDT Problem: Infection Goal: Absence of infection and prevention of transmission during hospitalization Outcome: Progressing Problem: Fall Safety Goal: Free from fall injury Outcome: Progressing Problem: Knowledge Deficit Goal: Patient and/or family demonstrate readiness to learn Outcome: Progressing Goal: Patient and/or family verbalizes understanding of education, and/or performs desired skill Outcome: Progressing Problem: Discharge Planning Goal: Discharge to home or other facility with appropriate resources Outcome: Progressing Goal: 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 in 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 Outcome: Progressing Problem: Delirium Goal: Prevent and Manage Delirium Outcome: Progressing Problem: Knowledge Deficit Goal: Patient/family/caregiver demonstrates understanding of disease process, treatment plan, medications, and discharge instructions Outcome: Progressing Problem: Potential for Compromised Skin Integrity Goal: Skin integrity is maintained or improved Outcome: Progressing Goal: Nutritional status is improving Outcome: Progressing Problem: Urinary Incontinence Goal: Perineal skin integrity is maintained or improved Outcome: Progressing Problem: Potential for Compromised Skin Integrity Goal: Skin integrity is maintained or improved Outcome: Progressing Goal: Nutritional status is improving Outcome: Progressing Problem: Urinary Incontinence Goal: Perineal skin integrity is maintained or improved Outcome: Progressing * Plan of Care - Yue Foster RN - 01/29/2020 7:07 PM CDT Problem: Fall Safety Goal: Free from fall injury Outcome: Progressing * OT Treatment Note - MAGALY Nick - 01/29/2020 9:41 AM CDT Occupational Therapy Treatment Patient Name: Ferdinand Rasmussen Patient Birthdate: 1945 Pain Assessment Pain Context: Therapy Assessment Prior to Treatment (01/29/20944) Pain Score: 0 - No pain (01/29/20944) ADL Training: ADL Training Narrative: LB dressing training completed with A/E of fuse cup expander, dressing stick and sockaid to doff/william B socks and thread pants over feet while seated in w/c to promote improved safety,speed and I with task. Pt demonstrated good awareness of technique with A/E requiring verbal cue x 1 for donning sock on sock aid. Pt completed task with SBA with minimal extended time. Pt required verbal cues x 2 to maintain hip precautions due to leaning forward in w/c. OT Therapeutic Activity: Therapeutic Exercise: Dynamic standing with reaching outside DEONNA and across midline while standing at w/w with SBA and unilateral hand support throughout task. Pt tolerated 10 minute maximal stand time to reduce fall risk and support improved endurance for I in ADLs and IADLs to progress towards PLOF. Therapeutic Activity: Pt able to recall 3/3 hip precautions from memory to facilitate carryover of precautions during ADL and IADLs. Treatment, Outcomes and Plan: OT Narrative:: Continue per POC for skilled OT services to promote improved safety and functional Iin ADLs and IADLS to reduce caregiver burden and enhance pt's quality of life. Patient remained up sitting in chair at end of session with pelvic positioning belt on, chair alarm in place, call lightand phone within reach. OT Treatment Outcomes:: Safety device reapplied and Patient tolerated treatment well OT Summary Plan of Care: Continue with current plan of care Pain Evaluation and Follow-up Pain Reassessment: No pain (01/29/20 1022) Therapy Minutes Individual Concurrent Co-Treat Time In : 0941 Time Out: 1026 Total Time with Patient (Min): 45 min Missed Minutes : 0 KAMILLE JUAREZ COTA 01/29/2020 * PT Treatment Note - Isabel Villalobos, PT - 01/29/2020 8:15 AM CDT PT Treatment Patient Name: Ferdinand Rasmussen Patient Birthdate: 1945 Patient Subjective Report - I'm okay. Patient was sleeping in bed when therapist arrived to room,however he was agreeable to participate in therapy. Pain Assessment Pain Context: Therapy Assessment Prior to Treatment (01/29/20815) Pain Assessment: NRS 0-10 (01/29/20815) Pain Score: 0 - No pain (01/29/20815) Overall Cognitive Status: Within Functional Limits Surface: Indoor Assistive Device: RW Ambulation Level of Assistance: Contact Guard Distance (feet): 200 Gait Analysis: Patient able to ambulate 200 ft x 2 with WW and CGA before fatiguing. He requires cues to maintain DEONNA within WW and for larger step length bilaterally. Transfer to 1: Wheelchair Transfer from 1: Bed Technique 1: Stand pivot Transfer Level of Assistance 1: Contact Guard Transfer to 2: Stand Transfer from 2: Sit Technique 2: Sit to stand Transfer Level of Assistance 2: Contact Guard Trials/Comments 2: Cues to avoid breaking precautions when transferring from stand to sit by avoiding excessive forward lean at trunk. Wheelchair Type: Manual Surface: Indoor Propulsion Method: Bilateral upper extremity Wheelchair Propulsion Level of Assistance: Minimal Verbal Cues Wheelchair Analysis: Patient self-propelled 100 ft in manual wheelchair with BUEs. He requires Min A for turning. Unable to continue due to reported UE fatigue. PT Treatment Outcomes:: Patient tolerated session fair, Cues needed for safety and Other (comment) (Limited by fatigue) PT Summary:: Patient demonstrated fair tolerance of treatment activities. Session focused on wheelchair propulsion, ambulation and transfers. He was unable to increase distance ambulated with WW today, limited by fatigue. Cuing required throughout session for maintain posterior hip precautions when transferring from stand to sit. Frequent rest breaks were required throughout session. He would benefit from additional endurance training. Patient remained up sitting in chair at end of session withpelvic positioning belt on, chair alarm in place, call light and phone within reach. PT Summary Plan of Care: Continue with current plan of care Pain Evaluation and Follow-up Pain Reassessment: No pain (01/29/20858) Nursing notified of patient's pain assessment: Not indicated - pain score 2 or less (01/29/20858) Therapy Minutes Individual Concurrent Co-Treat Time In : 0815 Time Out: 0900 Breaks/Pauses (Min): 0 mins Total Time with Patient (Min): 45 min Missed Minutes : 0 ISABEL VILLALOBOS, PT 01/29/2020 * Plan of Care - Loree Valle RN - 01/29/2020 7:23 AM CDT Problem: Infection Goal: Absence of infection and prevention of transmission during hospitalization 01/29/2020721 by Loree Valle RN Outcome: Progressing 01/29/2020721 by Loree Valle RN Outcome: Progressing Problem: Fall Safety Goal: Free from fall injury 01/29/2020721 by Loree Valle RN Outcome: Progressing 01/29/2020721 by Loree Valle RN Outcome: Progressing Problem: Knowledge Deficit Goal: Patient and/or family demonstrate readiness to learn 01/29/2020721 by Loree Valle RN Outcome: Progressing 01/29/2020721 by Loree Valle RN Outcome: Progressing Goal: Patient and/or family verbalizes understanding of education, and/or performs desired skill 01/29/2020721 by Loree Valle RN Outcome: Progressing 01/29/2020721 by Loree Valle RN Outcome: Progressing Problem: Discharge Planning Goal: Discharge to home or other facility with appropriate resources 01/29/2020721 by Loree Valle RN Outcome: Progressing 01/29/2020721 by Loree Valle RN Outcome: Progressing Goal: 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 in role 01/29/2020721 by Loree Valle RN Outcome: Progressing 01/29/2020721 by Loree Valle RN Outcome: Progressing Problem: Delirium Goal: Prevent and Manage Delirium 01/29/2020721 by Loree Valle RN Outcome: Progressing 01/29/2020721 by Loree Valle RN Outcome: Progressing Problem: Knowledge Deficit Goal: Patient/family/caregiver demonstrates understanding of disease process, treatment plan, medications, and discharge instructions 01/29/2020721 by Loree Valle RN Outcome: Progressing 01/29/2020721 by Loree Valle RN Outcome: Progressing Problem: Potential for Compromised Skin Integrity Goal: Skin integrity is maintained or improved 01/29/2020721 by Loree Valle RN Outcome: Progressing 01/29/2020721 by Loree Valle RN Outcome: Progressing Goal: Nutritional status is improving 01/29/2020721 by Loree Valle RN Outcome: Progressing 01/29/2020721 by Loree Valle RN Outcome: Progressing Problem: Urinary Incontinence Goal: Perineal skin integrity is maintained or improved 01/29/2020721 by Loree Valle RN Outcome: Progressing 01/29/2020721 by Loree Valle RN Outcome: Progressing Problem: Bowel Incontinence Goal: Perineal Skin Integrity is Maintained or Improved 01/29/2020721 by Loree Valle RN Outcome: Progressing 01/29/2020721 by Loree Valle RN Outcome: Progressing Problem: Pain Goal: Patient's Pain/Discomfort is Manageable 01/29/2020721 by Loree Valle RN Outcome: Progressing 01/29/2020721 by Loree Valle RN Outcome: Progressing Problem: Knowledge Deficit Goal: Patient/family/caregiver demonstrates understanding of disease process, treatment plan, medications, and discharge instructions 01/29/2020721 by Loree Valle RN Outcome: Progressing 01/29/2020721 by Loree Vlale RN Outcome: Progressing Problem: Potential for Compromised Skin Integrity Goal: Skin integrity is maintained or improved 01/29/2020721 by Loree Valle RN Outcome: Progressing 01/29/2020721 by Loree Valle RN Outcome: Progressing Goal: Nutritional status is improving 01/29/2020721 by Loree Valle RN Outcome: Progressing 01/29/2020721 by Loree Valle RN Outcome: Progressing Problem: Urinary Incontinence Goal: Perineal skin integrity is maintained or improved 01/29/2020721 by Loree Valle RN Outcome: Progressing 01/29/2020721 by Loree Valle RN Outcome: Progressing Problem: Bowel Incontinence Goal: Perineal Skin Integrity is Maintained or Improved 01/29/2020721 by Loree Valle RN Outcome: Progressing 01/29/2020721 by Loree Valle RN Outcome: Progressing * Plan of Care - Loree Valle RN - 01/29/2020 7:22 AM CDT Problem: Infection Goal: Absence of infection and prevention of transmission during hospitalization Outcome: Progressing Problem: Fall Safety Goal: Free from fall injury Outcome: Progressing Problem: Knowledge Deficit Goal: Patient and/or family demonstrate readiness to learn Outcome: Progressing Goal: Patient and/or family verbalizes understanding of education, and/or performs desired skill Outcome: Progressing Problem: Discharge Planning Goal: Discharge to home or other facility with appropriate resources Outcome: Progressing 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: 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 in role Outcome: Progressing Problem: Delirium Goal: Prevent and Manage Delirium Outcome: Progressing Problem: Knowledge Deficit Goal: Patient/family/caregiver demonstrates understanding of disease process, treatment plan, medications, and discharge instructions Outcome: Progressing Problem: Potential for Compromised Skin Integrity Goal: Skin integrity is maintained or improved Outcome: Progressing Goal: Nutritional status is improving Outcome: Progressing Problem: Urinary Incontinence Goal: Perineal skin integrity is maintained or improved Outcome: Progressing Problem: Bowel Incontinence Goal: Perineal Skin Integrity is Maintained or Improved Outcome: Progressing Problem: Pain Goal: Patient's Pain/Discomfort is Manageable Outcome: Progressing Problem: Knowledge Deficit Goal: Patient/family/caregiver demonstrates understanding of disease process, treatment plan, medications, and discharge instructions Outcome: Progressing Problem: Potential for Compromised Skin Integrity Goal: Skin integrity is maintained or improved Outcome: Progressing Goal: Nutritional status is improving Outcome: Progressing Problem: Urinary Incontinence Goal: Perineal skin integrity is maintained or improved Outcome: Progressing Problem: Bowel Incontinence Goal: Perineal Skin Integrity is Maintained or Improved Outcome: Progressing * Plan of Care - Yue Foster RN - 01/28/2020 7:42 PM CDT Problem: Fall Safety Goal: Free from fall injury Outcome: Progressing * PT Treatment Note - Kylie Sanchez PT - 01/28/2020 11:20 AM CDT PT Treatment Patient Name: Ferdinand Rasmussen Patient Birthdate: 1945 Patient Subjective Report - Pt seated in wheelchair upon entry. Agreeable to therapy. Pain Assessment Pain Context: Therapy Assessment Prior to Treatment (01/28/201119) Pain Assessment: None/denies pain (01/28/201119) Surface: Even surface and Indoor Assistive Device: RW Ambulation Level of Assistance: Distant Supervision (Emerging Mod I) Distance (feet): 200 Gait Analysis: 1 x 200' with RW and distant supervision (emerging Mod I). Pt demonstrates increaseddistance from RW and DEONNA, increased reliance on UE support, decreased foot clearance (shuffling gait), and decreased step length. Pt demonstrates no noted LOB throughout. Seated rest break upon completion due to increased fatigue. 1 x 75' with ambulation over uneven surfaces (compliant foam mat), 6 inch hurdles x 5, and 1 x up/down 6 inch curb step (see below for details). Pt is able to perform all mobility with increased timeand need for instances of lifting RW over hurdles. Pt performs with distant supervision and instances of close supervision for safety. Seated rest break upon completion. 1 x 120' with picking up objects from floor: pt performs ambulation with supervision throughout, however is able to perform picking up object from floor using fuse cup expander with Mod I and increased time tocomplete overall. Seated rest break upon completion. Transfer to 1: Stand Transfer from 1: Wheelchair Technique 1: Sit to stand and Stand to sit Transfer Level of Assistance 1: Modified Independent Trials/Comments1: With use of UE support from armrest and RW for balance and force production. Pt demonstrates sound recall and demonstration of hand placement and sequencing to/from sitting position. Therapeutic Activities and Neuromuscular Re-education: PICKING UP OBJECT FROM FLOOR: - Pt performs blocked practice of picking up object from floor using RW and fuse cup expander for UE support and to maintain hip precautions when attempting to brain picker object floor floor. Pt performs with increased time to complete and Mod I when using fuse cup expander + RW for UE support. Seated reset break upon completion of picking up a total of 7 objects (alvarez bags). Were respiratory Interventions provided?: No PT Treatment Outcomes:: Patient is progressing toward STG, Patient tolerated treatment well, Safetydevice reapplied, Improved balance and coordination, Improved safety awareness, Improved ambulationperformance, Compensatory strategies effectively used and Improved transfer ability noted PT Summary:: Patient remained up sitting in chair at end of session with pelvic positioning belt on, chair alarm in place, call light and phone within reach. Pt would benefit from continued skilled PT services at this time in order to further improve upon the above listed impairments and to maximize functional strength and mobility at this time in order to prepare for safe discharge. PT Summary Plan of Care: Continue with current plan of care Pain Evaluation and Follow-up Pain Reassessment: No pain (01/28/20 120) Nursing notified of patient's pain assessment: Not indicated - pain score 2 or less (01/28/201207) Therapy Minutes Individual Concurrent Co-Treat Time In : 1120 Time Out: 1208 Total Time with Patient (Min): 48 min Missed Minutes : 3 KYLIE SANCHEZ PT 01/28/2020 * OT Treatment Note - [place] - 01/28/2020 9:50 AM CDT Occupational Therapy Treatment Patient Name: Ferdinand Rasmussen Patient Birthdate: 1945 Pain Assessment Pain Context: Therapy Assessment Prior to Treatment (01/28/20951) Pain Assessment: NRS 0-10 (01/28/20951) Pain Score: 0 - No pain (01/28/20951) ADL Status: Bed, Chair, Wheelchair Transfer: Close Supervision Bed/Chair Transfer to: Sit and Stand Bed/Chair Transfer from: Stand and Sit Bed/Chair Transfer Technique: Sit to stand and Stand to sit Bed/Chair Transfer Status: With stand by assist Assistive Devices Used: Walker Bed/Chair Transfer Comments: Pt participated in stand <> sit transfers multiple times during session under close supervision. Pt benefitted from minimum verbal cues for initiation. Standing Tolerance Time (mins): 8 Activity: Pt engaged in folding clothes while standing using a RW for support. Functional Standing Tolerance Comments: Pt folded x8 items of clothing standing 8 minutes with a break, followed by 2 more items and 2 minutes of standing. Pt completed activity with close supervision and increased time d/t impaired balance. Pt engaged in standing activity to increase endurance during ADLs. Standing Assist: Close Supervision Mobility Assist for the Kitchen: Walker Kitchen Activity: Transport items Kitchen Mobility Comments: Pt transported ingredients and mug from counter to cabinet, counter to sink, microwave to table. Pt required close supervision and minimal verbal cues to complete task. Mobility Assist for Meal Prep: Walker Meal Prep Level of Assistance: Moderate Assistance and Setup Meal Preparation: Pt participated in a meal prep activity using a microwave. Pt required moderate assistance for ingredient retrieval and recipe directions due to impaired attention and direction following. Other I_ADL Training: Other I-ADL Training: Pt participates in kitchen mobility and meal prep to increase safety and independence with IADLs upon discharge. Pt would benefit from supervision during IADL participation due to impaired sequencing, safety awareness, and balance. Standing Balance Training: Standing Balance Training: Dynamic positions Pt tolerated 8 minutes of standing to perform a pipe building activity focusing on bi-manual skills, dynamic standing balance, task focus, and problem solving. Pt benefited from close supervision andmoderate verbal cues to complete pipe activity due to impaired balance and cognition. OT Therapeutic Activity: Therapeutic Activity: Endurance: Pt participated in a clothing retrieval activity. Pt retrieved 10 items of clothing ambulating around gym using a RW and fuse cup expander with close supervision and verbal cues for locating clothing items due to impaired attention. Pt participates to improve endurance, balance, and item retrieval throughout ADLs and IADLs. Patient Education: Pt educated on precautions and AE to complete ADLs around the home to decrease pain and increase endurance and safety. Cognition: Pt engaged in a home safety awareness activity with photo cards. Pt correctly [id number] safety concerns in photos with minimum verbal cues/gestures and increased time due to impaired cognition. Treatment, Outcomes and Plan: OT Narrative:: Pt participates well with significantly increased time and rest breaks. Pt with seatbelt and alarm on in gym awaiting PT. OT Treatment Outcomes:: Safety device reapplied and Patient tolerated treatment well OT Summary Plan of Care: Continue with current plan of care Pain Evaluation and Follow-up Response to Therapy Interventions: Improved activity tolerance (01/28/20 1045) Pain Reassessment: No pain (01/28/20 104) Nursing notified of patient's pain assessment: Not indicated - pain score 2 or less (01/28/20 1045) Therapy Minutes Individual Concurrent Co-Treat Time In : 0950 Time Out: 1120 Breaks/Pauses (Min): 0 mins Total Time with Patient (Min): 90 min Missed Minutes : 0 [place] 01/28/2020 Cosigned by Carlos Caba OT at 01/28/2020 1:02 PM CDT * PT Group Treatment - Emelina Grant, PT - 01/28/2020 8:15 AM CDT Physical Therapy Group Treatment Patient Name: Ferdinand Rasmussen Patient Birthdate: 1945 Patient Subjective Report - Pt sitting up in wheelchair and agreeable to participation in PT group session. Pain Assessment Pain Context: Therapy Assessment Prior to Treatment (01/28/20814) Pain Assessment: None/denies pain (01/28/20814) Pain Score: 0 - No pain (01/28/20814) Name of Group Session:: Dynamic Balance and Gait Group and Lower Extremity Therex Group Patient's Indvidualized Goals for Group Session:: Decrease falls & fear of falling, Enhance sitting or standing balance, Facilitate discharge to the community, Improve gait in community setting, Improve mobility skills with Stairs, Curbs, and/or Ramps, Improve motor initating skills, Improve quality of movements, Improve seated/standing weight shifting and Lower extremity strength and endurance Justification for Group Intervention: To provide psychosocial support and improve participation in overall rehab program, Facilitate learning through peer interactions, Refine quality of motor skillswith increased challenges of a social setting, Provide additional environmental stimulation to challenge skill development, Prepare for discharge to community with motor performance in social settingand Motor skills training in structured social setting Skilled Services Provided: Activity was graded or modified to meet the patient's needs Education provided:: Educated on ambulation, tolerance to positional changes, LE strengthening, dynamic standing balance, navigation of obstacles, transfers, and safety in group setting. Patients Response to Treatment:: He expressed positive feelings for having worked in group setting,supported other group members, and tolerated session well. Returned to room with seat belt and chair alarm on. Progress Towards Goals:: Balance improving, Goals met for session, Improved strength demonstrated with repeated trails, Motor skills progressing, Safety techniques practiced and improvements noted, Strategies effectively used and Tolerated treatment with modifications to task as needed Group Note Narrative Summary:: Mr. Rasmussen attended group session this AM designed to improve LE strength, ambulation, dynamic standing balance, and functional mobility as well as promote the benefits of group interaction such as increased motivation and psychological wellbeing. Initiate session with ambulation x 200 feet with WW and SBA- requiring cues throughout for maintaining upright posture andclose proximity to walker, as well as increasing joao and step length as able. Pt performs the following dynamic stepping patterns in 5-rung agility ladder with WW for carryover to improved coordination and balance during dynamic directional changes and walker management during community mobility: 2 feet in fwd stepping with emphasis on high knees x 4, 1 foot in each box x 4- requires maximal verbal cues to attempt and unable to perform large enough step to successfully achieve throughout. Requires CGA-SBA throughout with increased time for completion. Additionally performs the following BLE standing exercises for carryover to improved muscle activation and strength needed for ambulation tolerance and community mobility, x 15 each with B 3# ankle weights donned with FWW for balance: marches, fwd hip flex. Finally, performs step up/downs x 15 reps to six inch step with WW and CGA for carryover to improved cardiovascular endurance and LE muscle strength needed for ambulation tolerance. Patient expressed positive feelings for having worked in group setting. Pt on RA throughout. Tolerates treatment session well. Patient benefited from participation in the ambulation and dynamic balance group treatments as evidenced by improved functional endurance and balance with mobility. Plan for continued interventions:: Continue with current plan of care Pain Evaluation and Follow-up Pain Reassessment: No pain (01/28/20 0900) Nursing notified of patient's pain assessment: Not indicated - pain score 2 or less (01/28/20 0900) Time In : 0815 Time Out: 0900 Breaks/Pauses (Min): 0 mins Time calculation (min): 45 min Missed Minutes : 0 EMELINA GRANT, PT 01/28/2020 * Plan of Care - Loree Valle RN - 01/28/2020 7:48 AM CDT Problem: Infection Goal: Absence of infection and prevention of transmission during hospitalization Outcome: Progressing Problem: Fall Safety Goal: Free from fall injury Outcome: Progressing Problem: Knowledge Deficit Goal: Patient and/or family demonstrate readiness to learn Outcome: Progressing Goal: Patient and/or family verbalizes understanding of education, and/or performs desired skill Outcome: Progressing Problem: Discharge Planning Goal: Discharge to home or other facility with appropriate resources Outcome: Progressing 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: 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 in role Outcome: Progressing Problem: Delirium Goal: Prevent and Manage Delirium Outcome: Progressing Problem: Knowledge Deficit Goal: Patient/family/caregiver demonstrates understanding of disease process, treatment plan, medications, and discharge instructions Outcome: Progressing Problem: Potential for Compromised Skin Integrity Goal: Skin integrity is maintained or improved Outcome: Progressing Goal: Nutritional status is improving Outcome: Progressing Problem: Urinary Incontinence Goal: Perineal skin integrity is maintained or improved Outcome: Progressing Problem: Bowel Incontinence Goal: Perineal Skin Integrity is Maintained or Improved Outcome: Progressing Problem: Pain Goal: Patient's Pain/Discomfort is Manageable Outcome: Progressing Problem: Knowledge Deficit Goal: Patient/family/caregiver demonstrates understanding of disease process, treatment plan, medications, and discharge instructions Outcome: Progressing Problem: Potential for Compromised Skin Integrity Goal: Skin integrity is maintained or improved Outcome: Progressing Goal: Nutritional status is improving Outcome: Progressing Problem: Urinary Incontinence Goal: Perineal skin integrity is maintained or improved Outcome: Progressing Problem: Bowel Incontinence Goal: Perineal Skin Integrity is Maintained or Improved Outcome: Progressing * Plan of Care - Ashley Bennett RN - 01/27/2020 11:42 PM CDT Problem: Infection Goal: Absence of infection and prevention of transmission during hospitalization Outcome: Progressing Problem: Fall Safety Goal: Free from fall injury Outcome: Progressing Problem: Knowledge Deficit Goal: Patient and/or family demonstrate readiness to learn Outcome: Progressing Goal: Patient and/or family verbalizes understanding of education, and/or performs desired skill Outcome: Progressing Problem: Discharge Planning Goal: Discharge to home or other facility with appropriate resources Outcome: Progressing Goal: 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 in role Outcome: Progressing Problem: Delirium Goal: Prevent and Manage Delirium Outcome: Progressing Problem: Knowledge Deficit Goal: Patient/family/caregiver demonstrates understanding of disease process, treatment plan, medications, and discharge instructions Outcome: Progressing Problem: Potential for Compromised Skin Integrity Goal: Skin integrity is maintained or improved Outcome: Progressing Goal: Nutritional status is improving Outcome: Progressing Problem: Urinary Incontinence Goal: Perineal skin integrity is maintained or improved Outcome: Progressing Problem: Bowel Incontinence Goal: Perineal Skin Integrity is Maintained or Improved Outcome: Progressing Problem: Pain Goal: Patient's Pain/Discomfort is Manageable Outcome: Progressing Problem: Knowledge Deficit Goal: Patient/family/caregiver demonstrates understanding of disease process, treatment plan, medications, and discharge instructions Outcome: Progressing Problem: Potential for Compromised Skin Integrity Goal: Skin integrity is maintained or improved Outcome: Progressing Goal: Nutritional status is improving Outcome: Progressing Problem: Urinary Incontinence Goal: Perineal skin integrity is maintained or improved Outcome: Progressing Problem: Bowel Incontinence Goal: Perineal Skin Integrity is Maintained or Improved Outcome: Progressing * Plan of Care - Kanwal Gil RN - 01/27/2020 2:15 PM CDT Problem: Potential for Compromised Skin Integrity Goal: Skin integrity is maintained or improved Outcome: Progressing Flowsheets (Taken 01/27/2020 1414) Skin Integrity is Maintained or Improved: Assess skin and skin risk for breakdown Turn Patient Keep skin clean and dry Monitor and teach appropriate hygiene practices Appropriate use of moisturizers for skin Relieve pressure to bony prominences, avoid shearing * [employer] Discharge Summary - Paz Linn CCC-[employer] - 01/27/2020 1:52 PM CDT Speech Language Pathologist Discharge Summary Patient Name: Ferdinand Rasmussen Patient Birthdate: 1945 [employer] Current Functional Status: Mr. Rasmussen is a 74-year-old male referred to speech therapy for evaluation and treatment following recent hospitalization with a diagnosis of Unilateral primary osteoarthritis, right hip and presence of left artificial hip joint. Comorbidities include ESRD, osteoarthritis. Past medical history is significant for CVA, HTN, Cancer, pre hypercholesterolemia. Prior to this hospitalization pt. Was able to consume a regular diet per pt. report. Precautions include: aspiration, safety. Mr. Rasmussen's current functional status is as follows: DIET: Regular solids and thin liquids; Patient improved in swallow and no pain or globus sensation. SWALLOWING STRATEGIES: Slow??rate, small bites/sips, alternate solids/liquids, upright with all intake. No further speech therapy warranted and he is not exhibiting dysphagia. Facilitating Factors in Goal Achievement: Improvement in swallow function Barriers to Goal Achievement: None Date Last Assessed: 01/27/2020 Senior Living Goals: Goal Goal Status Discharge Status N/A or No Goal Listed N/A or No Goal Listed N/A or No Goal Listed N/A or No Goal Listed N/A or No Goal Listed N/A or No Goal Listed N/A or No Goal Listed N/A or No Goal Listed N/A or No Goal Listed N/A or No Goal Listed N/A or No Goal Listed Swallowing Details: Pt will tolerate least restrictive diet with no clinical signs of aspiration, utilizing instructed compensatory strategies, to improve efficiency of swallow for increased hydration and nutrition. Swallowing Expected Achievement Date: 02/08/20 Achieved N/A or No Goal Listed Additional Goals: N/A Discharge Instructions given to patient: 1. Regular solids and thin liquids 2. No further speech therapy PAZ LINN CCC-[employer] 01/27/2020 * Wound Progress Note - Kanwal Gil RN - 01/27/2020 1:00 PM CDT Images from the original note were not included. Wound Progress Note Reason for wound Consult: Staple removal of right hip incision and dawson score of 17 Patient is awake, alert and oriented Ferdinand Rasmussen is a 74 y.o. male with the following Problems. Patient Active Problem List Diagnosis ??? Debility ??? Anemia of chronic renal failure ??? Chronic kidney disease, Stage V ??? Essential hypertension ??? Hyperkalemia ??? Hypervolemia ??? Malignant neoplasm of prostate ??? Moderate malnutrition ??? Other hyperlipidemia ??? Retention of urine ??? Diastolic dysfunction ??? Seroma ??? Abnormality of gait ??? Toxic metabolic encephalopathy ??? End stage renal failure on dialysis ??? Metabolic acidosis ??? Latent autoimmune diabetes mellitus in adult ??? Hyperglycemia ??? Osteoarthritis Past Medical History: Past Medical History: Diagnosis Date ??? Diabetes mellitus ??? Diabetes mellitus 05/12/2019 ??? End stage renal failure on dialysis 05/12/2019 New to dialysis ??? Hypertension ??? Other abnormal clinical findings ??? Seroma 05/12/2019 Proximal Left thigh 60 x 23 x39 mm by US Past Surgical History: No past surgical history on file. Allergies: Patient has no known allergies. Dawson Score: Dawson Scale Score: 18 Wound/Ulcer Assessment: Surgical Wound Hip Left;Lateral (Active) 01/20/201999 Hip Pre-Existing Wound: Yes Wound Location Orientation: Left;Lateral Wound Description (Comments): Surgical incision - Left hip replacement Wound Image 01/27/20 1300 Wound Length (cm) 7.7 cm 01/27/20 1300 Wound Width (cm) 0.1 cm 01/27/20 1300 Wound Depth (cm) 0.1 01/27/20 1300 Calculated Wound Size (cm^2) 0.77 cm^2 01/27/20 1300 Calculated Wound Size (cm^3) 0.08 cm^3 01/27/20 1300 Closure Approximated;Other (Comment) 01/27/20 1300 Extent of Tissue Loss Partial thickness tissue loss 01/27/20 1300 Undermining None present 01/27/20 1300 Granulation Tissue [place], and/or dull, dusky red and/or fills <25% of wound 01/27/20 1300 Epithelialization 50% to <75% wound covered and/or epithelial tissue extends <0.5 cm into wound bed 01/27/20 1300 Necrotic Tissue Type None visible 01/27/20 1300 Necrotic Tissue Amount None visible 01/27/20 1300 Other Wound Bed Characteristics Dermis/[place] Tissue 01/27/20 1300 Wound Edges Distinct, outline clearly visible, attached and even with wound base 01/27/20 1300 Periwound Skin Color [place] or normal for ethnic group 01/27/20 1300 Per[place]ound Skin Edema No swelling or edema 01/27/20 1300 Periwound Skin Induration None present 01/27/20 1300 Exudate Type None 01/27/20 1300 Exudate Amount None, dry wound 01/27/20 1300 Odor None 01/27/20 1300 Wound Management Cleansed;Open to air 01/27/20 1300 Dressing Changed Other (Comment) 01/27/20 1300 Dressing Status Clean;Dry;Intact 01/27/20 1300 Assessment: Patient sitting up in his wheelchair. Patient back to bed with minimal assist. Patient able to turn self with minimal assist. Heels and coccyx blanchable and intact. Ramsey removed and incision noted to have a flap of skin over incision and pink moist areas noted. Steri strips applied to incision for reinforcement. Recommendations: Incision to right hip: Cleanse with wound cleanser and keep dry and intact. Maintain steri strips. Turn [id number] while in bed and elevate heels while in bed. Barrier cream to buttocksprn pericare. Signature: KANWAL GIL RN Date: 01/27/2020 Time: 2:07 PM CDT Cosigned by Mike Zamora MD at 03/27/2020 2:13 PM OXYACETYLENE CUTTER * PT Treatment Note - Kylie Sanchez PT - 01/27/2020 11:15 AM CDT PT Treatment Patient Name: Ferdinand Rasmussen Patient Birthdate: 1945 Patient Subjective Report - Pt seated in wheelchair upon entry. Agreeable to therapy. Pain Assessment Pain Context: Therapy Assessment Prior to Treatment (01/27/201114) Pain Assessment: None/denies pain (01/27/201114) Surface: Even surface and Indoor Assistive Device: RW Ambulation Level of Assistance: Distant Supervision Distance (feet): 207 Gait Analysis: 1 x 207' with RW and distant supervision with ambulation over even surfaces using RW. He demonstrates increased reliance on RW for UE support, decreased foot clearance (shuffling gait), improved overall joao and no noted LOB throughout. Seated rest break upon completion. Rails: Bilateral Stairs Level of Assistance: Distant Supervision Stairs Height of Step: 6-inch Stair Analysis: Pt performs up/down 20 steps at 6 inches each with consistent distant supervision throughout mobility. He performs with anterior approach up/down and non-reciprocal pattern leading upwith R LE and down with L LE first. Pt requires seated rest break upon completion. Number of Steps: 20 Transfer to 1: Stand Transfer from 1: Wheelchair Technique 1: Sit to stand and Stand to sit Transfer Level of Assistance 1: Modified Independent Trials/Comments1: With use of RW and armrests for UE support. Pt performs with increased time to complete and Mod I. Demonstrates fully backing up to chair prior to initiation of sitting as well. Transfer to 2: Car Transfer from 2: Wheelchair Technique 2: Stand pivot Transfer Level of Assistance 2: Modified Independent Trials/Comments 2: With greatly increased time to complete and Mod I. Pt demonstrates full pivot and sitting into vehicle prior to management of LE's into car. Similar strategy for exiting the vehicle for placing LE's out of vehicle prior to stand. Increased time to complete and no physical assistance. Were respiratory Interventions provided?: No PT Treatment Outcomes:: Compensatory strategies effectively used, Improved ambulation performance, Improved balance and coordination, Improved safety awareness, Improved transfer ability noted, Safety device reapplied and Patient tolerated treatment well PT Summary:: Patient remained up sitting in chair at end of session with pelvic positioning belt on, chair alarm in place, call light and phone within reach. Pt would benefit from continued skilled PT services at this time in order to further improve upon the above listed impairments and to maximize functional strength and mobility at this time in order to prepare for safe discharge. PT Summary Plan of Care: Continue with current plan of care Pain Evaluation and Follow-up Pain Reassessment: No pain (01/27/20 1204) Nursing notified of patient's pain assessment: Not indicated - pain score 2 or less (01/27/20 1204) Therapy Minutes Individual Concurrent Co-Treat Time In : 1115 Time Out: 1204 Breaks/Pauses (Min): 0 mins Total Time with Patient (Min): 49 min Missed Minutes : 4 KYLIE SANCHEZ PT 01/27/2020 * OT Treatment Note - [place] - 01/27/2020 11:12 AM CDT Occupational Therapy Treatment Patient Name: Ferdinand Rasmussen Patient Birthdate: 1945 Pain Assessment Pain Context: Therapy Assessment Prior to Treatment (01/27/20 1027) Pain Assessment: NRS 0-10 (01/27/20 1027) Pain Score: 0 - No pain (01/27/20 1027) ADL Status: Bathing: Setup and Contact Guard Bathing Where Assessed: Sponge bath standing at sink Bathing Comments: Pt participated in bathing while standing at the sink using a washcloth. Pt required CGA while at the sink for balance. Dressing Upper Body: Close Supervision Upper Body Dressing Where Assessed: Sitting in chair Upper Body Dressing Comments: Pt don/doffed shirt with close supervision and minimal verbal cueing for positioning and dressing techniques. Dressing Lower Body: Minimal Assistance Lower Body Dressing Where Assessed: Sitting in chair Lower Body Dressing Adaptive Equipment: Manager Category, Dressing stick and Sock aide Lower Body Dressing Comments: Pt required minimal verbal cues for positioning and use of AD to don/doff pants. Pt benefitted from verbal cues for positioning to thread pants using a fuse cup expander and a dressing stick. Pt also required verbal cues to adhere to hip precautions to don/doff pants/socks. Bed, Chair, Wheelchair Transfer: Contact Guard Bed/Chair Transfer to: Stand and Sit Bed/Chair Transfer from: Sit and Stand Bed/Chair Transfer Technique: Sit to stand Bed/Chair Transfer Status: With stand by assist Assistive Devices Used: Walker Bed/Chair Transfer Comments: Pt benefitted from CGA while transferring from stand <>sit at the sink in preparation for ADLs for balance/standing tolerance. Standing Tolerance Time (mins): 5-6-5 Activity: Pt. participated in standing tolerance activity of grooming at the sink. Pt participated in dynamic standing x3 trials 5-6 mins each to wash body. Functional Standing Tolerance Comments: Pt benefitted from CGA for balance and verbal cues for breaks and energy conservation techniques. Standing Assist: Contact Guard and Setup OT Therapeutic Activity: Endurance: Pt encouraged to participate in ADLS while standing to address standing tolerance and endurance. Pt required verbal cues for break reminders and energy conservation techniques. Treatment, Outcomes and Plan: OT Narrative:: Pt participated well in therapy this date. Patient remained up sitting in chair at end of session with pelvic positioning belt on, chair alarm in place, call light and phone within reach. OT Treatment Outcomes:: Safety device reapplied and Patient tolerated treatment well OT Summary Plan of Care: Continue with current plan of care Pain Evaluation and Follow-up Pain Reassessment: No pain (01/27/20 1111) Nursing notified of patient's pain assessment: Not indicated - pain score 2 or less (01/27/20 1111) Therapy Minutes Individual Concurrent Co-Treat Time In : 1027 Time Out: 1112 Total Time with Patient (Min): 45 min Missed Minutes : 0 [place] 01/27/2020 Cosigned by Carlos Caba OT at 01/27/2020 1:00 PM CDT * PT Group Treatment - Emelina Grant, PT - 01/27/2020 8:15 AM CDT Physical Therapy Group Treatment Patient Name: Ferdinand Rasmussen Patient Birthdate: 1945 Patient Subjective Report - Pt sitting up in wheelchair, agreeable to participation in PT group session. Pain Assessment Pain Context: Therapy Assessment Prior to Treatment (01/27/20814) Pain Assessment: None/denies pain (01/27/20814) Pain Score: 0 - No pain (01/27/20814) Name of Group Session:: Dynamic Balance and Gait Group and Lower Extremity Therex Group Patient's Indvidualized Goals for Group Session:: Decrease falls & fear of falling, Facilitate discharge to the community, Enhance sitting or standing balance, Improve gait in community setting, Improve motor initating skills, Improve quality of movements, Improve seated/standing weight shifting and Lower extremity strength and endurance Justification for Group Intervention: To provide psychosocial support and improve participation in overall rehab program, Facilitate learning through peer interactions, Refine quality of motor skillswith increased challenges of a social setting, Provide additional environmental stimulation to challenge skill development, Prepare for discharge to community with motor performance in social settingand Motor skills training in structured social setting Skilled Services Provided: Activity was graded or modified to meet the patient's needs Education provided:: Educated on ambulation, tolerance to positional changes, LE strengthening, navigation of obstacles, transfers, and safety in group setting. Patients Response to Treatment:: He expressed positive feelings for having worked in group setting,supported other group members, and tolerated session well. Returned to room with seat belt and chair alarm on. Progress Towards Goals:: Goals met for session, Improved strength demonstrated with repeated trails, Safety techniques practiced and improvements noted, Strategies effectively used and Tolerated treatment with modifications to task as needed Group Note Narrative Summary:: Mr. Rasmussen attended group session this AM designed to improve LE strength, ambulation, dynamic standing balance, and functional mobility as well as promote the benefits of group interaction such as increased motivation and psychological wellbeing. Ambulates initial 150 feet with WW and supervision- requiring cues throughout for maintaining close proximity to walker and upright posture. Pt participates in a group game, taking turns rolling dye to correspond to different strengthening and standing balance exercises for carryover to improved dynamic standing balance needed for ADL tasks and safe participation in community and home mobility. During game, pt performsstanding 3 cone taps with BLE to 2 cones placed directly in front of pt to maintain hip precautions using WW and CGA x 30 reps total for carryover to improved LE muscle strength needed for foot clearance during ambulation and elevations. Pt additionally performs blocked practice STS x 5 reps to WWfor carryover to improved cardiovascular endurance and muscle strength needed for community mobility. Finally, pt performs figure-8 weaving in/out of 2 cones placed closely together x 2 reps total with WW and SBA for carryover to improved independence and safety with navigation of obstacles in the home and community environments using AD. Pt on RA throughout therapy session. Tolerated treatment session well. Patient benefited from participation in the ambulation and dynamic balance group treatments as indicated by improved functional endurance, LE strength, and balance. Plan for continued interventions:: Continue with current plan of care Pain Evaluation and Follow-up Pain Reassessment: No pain (01/27/20899) Nursing notified of patient's pain assessment: Not indicated - pain score 2 or less (01/27/20899) Time In : 0815 Time Out: 0900 Breaks/Pauses (Min): 0 mins Time calculation (min): 45 min Missed Minutes : 0 EMELINA GRANT PT 01/27/2020 * [employer] Treatment Note - Paz Linn [facility]-DIRECTOR [employer] SALES - 01/27/2020 7:26 AM CDT Speech Language Pathologist Treatment Patient Name: Ferdinand Rasmussen Patient Birthdate: 1945 Patient Subjective Report - Patient awake and in bed. Pain Assessment Pain Context: Therapy Assessment Prior to Treatment (01/27/20725) Pain Assessment: None/denies pain (01/27/20725) Dentition and oral health status: Edentulous Dysphagia Treatment: Swallow strategy training and Therapeutic trials Compensatory swallowing techniques: Alternate solids/liquids-liquid wash, Small bites, Small sips, Stay upright 30 minutes post PO intake and Seated upright with all PO intake Level of supervision at meals recommended: Assistance with set-up Patient/Caregiver Training: Dysphagia and Swallow strategies ST Narrative:: Oral motor assessment revealed edentulous. Patient continues to denies any pain withswallowing and does verbally report improvement in swallow. He consumed breakfast trial tray of regular solids (sausage cheli and pancakes) and thin liquids via cup sips with patient feeding self but required assistance with cutting items into small pieces. Patient noted to take large bites. Oral phase revealed increased mastication likely related to patient being edentulous resulting in mild lingual residue which was cleared with liquid wash. Pharyngeal phase revealed decreased laryngeal elevation but no sigs of aspiration noted. He denies any sensation of foods getting stuck or any pain during meal. Overall, no c/o's of signs of pharyngeal or esophageal dysphagia. Recommend diet upgrade to regularsolids and continue thin liquids. Diet order obtained and swallow sign updated in patient room. No further dysphagia therapy warranted at this time. Please re-refer if status changes. ST Session Outcomes: Tolerated treatment well, Patient/family education progressing and Progressingtoward STGs ST Summary Plan of Care: Continue with current plan of care Pain Evaluation and Follow-up Pain Reassessment: No pain (01/27/20 0808) Therapy Minutes Individual Concurrent Co-Treat Time In : 07 Time Out: 0812 Total Time with Patient (Min): 46 min Missed Minutes : 1 PAZ LINN CCC-[employer] 01/27/2020 * Plan of Care - Rosalind Snyder RN - 01/26/2020 7:48 PM CDT Problem: Infection Goal: Absence of infection and prevention of transmission during hospitalization Outcome: Progressing Problem: Fall Safety Goal: Free from fall injury Outcome: Progressing Problem: Knowledge Deficit Goal: Patient and/or family demonstrate readiness to learn Outcome: Progressing Goal: Patient and/or family verbalizes understanding of education, and/or performs desired skill Outcome: Progressing Problem: Discharge Planning Goal: Discharge to home or other facility with appropriate resources Outcome: Progressing Goal: 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 in role Outcome: Progressing Problem: Delirium Goal: Prevent and Manage Delirium Outcome: Progressing Problem: Knowledge Deficit Goal: Patient/family/caregiver demonstrates understanding of disease process, treatment plan, medications, and discharge instructions Outcome: Progressing Problem: Potential for Compromised Skin Integrity Goal: Skin integrity is maintained or improved Outcome: Progressing Goal: Nutritional status is improving Outcome: Progressing Problem: Urinary Incontinence Goal: Perineal skin integrity is maintained or improved Outcome: Progressing Problem: Bowel Incontinence Goal: Perineal Skin Integrity is Maintained or Improved Outcome: Progressing Problem: Pain Goal: Patient's Pain/Discomfort is Manageable Outcome: Progressing * OT Treatment Note - Carlos Caba OT - 01/26/2020 10:41 AM CDT Occupational Therapy Treatment Patient Name: Ferdinand Rasmussen Patient Birthdate: 1945 Pain Assessment Pain Context: Therapy Assessment Prior to Treatment (01/26/20 1041) Pain Assessment: None/denies pain (01/26/20 1041) ADL Status: Bed, Chair, Wheelchair Transfer: Close Supervision Bed/Chair Transfer to: Stand Bed/Chair Transfer from: Wheelchair Bed/Chair Transfer Technique: Sit to stand and Stand to sit Assistive Devices Used: Walker Bed/Chair Transfer Comments: Close supervision provided due to impaired balance and safety awareness. Pt requires verbal cues to initate and assist for wheelchair management. Standing Tolerance Time (mins): 5 minutes, 8 minutes Activity: Dynamic reaching, dynamic standing balance. Functional Standing Tolerance Comments: Pt participates in standing tolerance and dynamic balance training through use of standing puzzle task. Pt participates with use of RW and close supervision/varying CGA due to impaired balance. Pt participates to improve skills during self-care/functional mobility. Standing Balance Training: Standing Balance Training: Dynamic positions (Pt participates in dynamic standing balance training through use of standing balloon toss with use of RW. Pt requires encouragement for alternating use of UE's. Pt requires supervision and occasional steadying assistance due to impaired balance and safety.) Pt participates x5 minutes to improve dynamic standing balance and overall functional endurance with self-care and functional mobility. OT Therapeutic Activity: Therapeutic Exercise: Pt participates in UE strengthening while seated with use of 2# dumbbell to improve overall strength and endurance for self-care and functional mobility. Pt provided with verbal/tactile cueing to improve technique and posture throughout. Pt completes x 15 reps, x1 set unilaterally in the following planes: elbow flexion, shoulder flexion, chest press, overhead shoulder press,and shoulder abduction. Pt requires increased time for set completion and breaks between each set due to impaired endurance. Cognitive Skills Training: Attention comments: Pt participates in task focus and organization training through modified puzzletask. Pt requires significantly increased time, maximal verbal/visual and tactile cues for participation and success with task. Pt participates to improve task focus and though organization/problem-solving during self-care and IADL tasks. Treatment, Outcomes and Plan: OT Narrative:: Pt participates well in therapy. Patient remained up sitting in chair at end of session with pelvic positioning belt on, chair alarm in place, call light and phone within reach. OT Treatment Outcomes:: Safety device reapplied and Patient tolerated treatment well OT Summary Plan of Care: Continue with current plan of care Pain Evaluation and Follow-up Pain Reassessment: No pain (01/26/20 1120) Nursing notified of patient's pain assessment: Not indicated - pain score 2 or less (01/26/20 1120) Therapy Minutes Individual Concurrent Co-Treat Time In : 1041 Time Out: 1126 Total Time with Patient (Min): 45 min Missed Minutes : 0 CARLOS CABA OT 01/26/2020 * PT Treatment Note - Kylie Sanchez PT - 01/26/2020 9:45 AM CDT PT Treatment Patient Name: Ferdinand Rasmussen Patient Birthdate: 1945 Patient Subjective Report - Pt seated in wheelchair upon entry. Agreeable to therapy. Pain Assessment Pain Context: Therapy Assessment Prior to Treatment (01/26/20944) Pain Assessment: None/denies pain (01/26/20944) Surface: Even surface, Indoor, Uneven surface and Curbs Assistive Device: RW Ambulation Level of Assistance: Distant Supervision Distance (feet): 200 Gait Analysis: 1 x 200' with RW and distant supervision. Pt demonstrates decreased step length, decreased foot clearance with shuffling gait, increased forward trunk flexion, increased reliance on UEsupport from RW, and increased time to complete, however no noted LOB throughout. Seated rest breakupon completion. 1 x 200' ambulation with RW and additional obstacles (6 inch hurdles x 10 total) and up/down 6 inchcurb step (see below). Pt demonstrates with increased time to complete mobility when ambulating over obstacles, however is able to perform with distant supervision throughout and no noted LOB throughout. Seated rest break upon completion. Rails: Bilateral Stairs Level of Assistance: Distant Supervision Stairs Height of Step: 6-inch Stair Analysis: Pt performs with increased time to complete and non-reciprocal pattern (up with R LE and down with L LE) Pt performs with consistent distant supervision throughout and no noted LOB. Seated rest break upon completion. Number of Steps: 15 Assistive Device: RW Curb Level of Assistance: Distant Supervision Curb Height: 6 inch Curb Comment: Pt performs a total of 2 x up/down 6 inch curb step with RW during ambulation training. Performs with consistent distant supervision for safety and increased time to complete overall. No noted LOB. Leads up with R LE and down with L LE. Transfer to 1: Stand Transfer from 1: Wheelchair Technique 1: Sit to stand and Stand to sit Transfer Level of Assistance 1: Distant Supervision Trials/Comments1: Increased time to complete. Transfer to 2: Wheelchair Transfer from 2: Stand Technique 2: Ambulatory and Stand pivot Transfer Level of Assistance 2: Distant Supervision Trials/Comments 2: Pt performs with turn approximately 5 feet away from chair, however is able to slowly back up to wheelchair without any LOB or physical assistance. Backs up fully to wheelchair andreaches back to w/c prior to sitting. Were respiratory Interventions provided?: No PT Treatment Outcomes:: Patient is progressing toward STG, Patient tolerated treatment well, Safetydevice reapplied, Compensatory strategies effectively used, Improved ambulation performance, Improved balance and coordination, Improved safety awareness and Improved transfer ability noted PT Summary:: Patient remained up sitting in chair at end of session with pelvic positioning belt on, chair alarm in place, call light and phone within reach. Pt would benefit from continued skilled PT services at this time in order to further improve upon the above listed impairments and to maximize functional strength and mobility at this time in order to prepare for safe discharge. PT Summary Plan of Care: Continue with current plan of care Pain Evaluation and Follow-up Pain Reassessment: No pain (01/26/20 1032) Nursing notified of patient's pain assessment: Not indicated - pain score 2 or less (01/26/20 1032) Therapy Minutes Individual Concurrent Co-Treat Time In : 944 Time Out: 1032 Total Time with Patient (Min): 47 min Missed Minutes : 2 KYLIE SANCHEZ, PT 01/26/2020 * PT Group Treatment - Emelina Grant PT - 01/26/2020 8:15 AM CDT Physical Therapy Group Treatment Patient Name: Ferdinand Rasmussen Patient Birthdate: 1945 Patient Subjective Report - Pt sitting up in wheelchair, agreeable to participation in group therapy session. Pain Assessment Pain Context: Therapy Assessment Prior to Treatment (01/26/20814) Pain Assessment: None/denies pain (01/26/20 08) Pain Score: 0 - No pain (01/26/20814) Name of Group Session:: Dynamic Balance and Gait Group and Lower Extremity Therex Group Patient's Indvidualized Goals for Group Session:: Decrease falls & fear of falling, Enhance sitting or standing balance, Facilitate discharge to the community, Improve gait in community setting, Improve motor initating skills, Improve quality of movements, Improve seated/standing weight shifting and Lower extremity strength and endurance Justification for Group Intervention: Facilitate learning through peer interactions, To provide psychosocial support and improve participation in overall rehab program, Refine quality of motor skillswith increased challenges of a social setting, Provide additional environmental stimulation to challenge skill development, Prepare for discharge to community with motor performance in social settingand Motor skills training in structured social setting Skilled Services Provided: Activity was graded or modified to meet the patient's needs Education provided:: Educated on ambulation, tolerance to positional changes, LE strengthening, navigation of obstacles, transfers, and safety in group setting. Patients Response to Treatment:: He expressed positive feelings for having worked in group setting,supported other group members, and tolerated session well. Returned to room with seat belt and chair alarm on. Progress Towards Goals:: Balance improving, Goals met for session, Improved strength demonstrated with repeated trails, Safety techniques practiced and improvements noted, Strategies effectively usedand Tolerated treatment with modifications to task as needed Group Note Narrative Summary:: Mr. Rasmussen attended group session this AM designed to improve LE strength, ambulation, dynamic standing balance, and functional mobility as well as promote the benefits of group interaction such as increased motivation and psychological wellbeing. Ambulates initial 200 feet with WW and supervision- requiring cues throughout for maintaining upright posture and close proximity to walker. Pt participates in a group game, taking turns rolling dye to correspond to different strengthening and standing balance exercises for carryover to improved dynamic standing balance needed for ADL tasks and safe participation in community and home mobility. During game, pt performsblocked practice STS x 8 reps to WW with supervision for carryover to improved cardiovascular endurance and independence with functional transfers. Additionally performs fwd stepping over 3 canes placed on floor x 2 using WW for carryover to improved navigation of obstacles and various surfaces encountered in community environment- requiring CGA throughout and increased cues for walker managementto improve balance and safety. Pt expressed positive feelings for having worked in group setting. Pt on RA throughout therapy session. Tolerated treatment session well. Patient benefited from participation in the ambulation and dynamic balance group treatments as indicated by improved functional end urance and balance. Plan for continued interventions:: Continue with current plan of care Pain Evaluation and Follow-up Pain Reassessment: No pain (01/26/20899) Nursing notified of patient's pain assessment: Not indicated - pain score 2 or less (01/26/20899) Time In : 0815 Time Out: 0900 Breaks/Pauses (Min): 0 mins Time calculation (min): 45 min Missed Minutes : 0 EMELINA GRANT PT 01/26/2020 * DIRECTOR INBOUND SALES Treatment Note - Paz Linn [facility]-DIRECTOR IN[employer] SALES - 01/26/2020 7:29 AM CDT Speech Language Pathologist Treatment Patient Name: Ferdinand Rasmussen Patient Birthdate: 1945 Patient Subjective Report - Patient awake and sitting on side of bed for breakfast. Pain Assessment Pain Context: Therapy Assessment Prior to Treatment (01/26/20732) Pain Assessment: None/denies pain (01/26/20732) Dentition and oral health status: Able to manage secretions and Edentulous Dysphagia Treatment: Dysphagia diet training, Swallow strategy training and Therapeutic trials Recommended diet: NDD II (mechanically altered/moist fine chop) / IDSSI 5 Minced & Moist, All liquids no restrictions and Pills can be taken with recommended liquid consistency Compensatory swallowing techniques: Alternate solids/liquids-liquid wash, Clear oral cavity post POintake, Eat slowly-control rate, Effortful swallow, Small bites, Small sips, Stay upright 30 minutes post PO intake and Seated upright with all PO intake Level of supervision at meals recommended: Assistance with set-up Patient/Caregiver Training: Completed with patient, Current diet, Dysphagia, Swallow strategies, Oral hygiene and Therapy goals and treatment plan ST Narrative:: Oral motor assessment revealed edentulous. Speech difficult to understand likely impacted by being endentulous but when cued for slower speech rate his speech was more understandable but still severely unintelligible in connected speech. Patient denies any pain with swallowing this date and reports It's going down better. He consumed breakfast tray of NDD2 (mechanically altered/moist fine chop/IDDSI 5 Minced & Moist) solids (oatmeal, minced eggs), and thin liquids via cup sips with patient feeding self. Patient noted to take large bites with mild lingual residue but able to clear with extra swallows. Pharyngeal phase revealed decreased laryngeal elevation but no sings of aspiration noted. He denies any sensation of foods getting stuck and reports It seem like its going down better. He also consumed large pill whole with thin liquids with no signs of dysphagia. He consumed 25% of meal and 180 cc of liquids. Overall, no c/o's of signs of pharyngeal or esophageal dysphagia. Continue current diet and plan for trial tray of baseline diet soft/regular (patient reports he avoids some hard crunchy foods like nuts and apples but would eat other crunchy items like popcorn). ST Session Outcomes: Tolerated treatment well, Patient/family education progressing and Progressingtoward STGs ST Summary Plan of Care: Continue with current plan of care Pain Evaluation and Follow-up Pain Reassessment: No pain (01/26/20 0807) Therapy Minutes Individual Concurrent Co-Treat Time In : 07 Time Out: 813 Total Time with Patient (Min): 45 min Missed Minutes : 0 PAZ LINN [facility]-DIRECTOR [employer] SALES 01/26/2020 * Plan of Care - Jackie Michelle RN - 01/25/2020 11:16 PM CDT Problem: Infection Goal: Absence of infection and prevention of transmission during hospitalization Outcome: Progressing Problem: Fall Safety Goal: Free from fall injury Outcome: Progressing Problem: Knowledge Deficit Goal: Patient and/or family demonstrate readiness to learn Outcome: Progressing Goal: Patient and/or family verbalizes understanding of education, and/or performs desired skill Outcome: Progressing Problem: Discharge Planning Goal: Discharge to home or other facility with appropriate resources Outcome: Progressing Goal: 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 in role Outcome: Progressing Problem: Delirium Goal: Prevent and Manage Delirium Outcome: Progressing Problem: Knowledge Deficit Goal: Patient/family/caregiver demonstrates understanding of disease process, treatment plan, medications, and discharge instructions Outcome: Progressing Problem: Potential for Compromised Skin Integrity Goal: Skin integrity is maintained or improved Outcome: Progressing Goal: Nutritional status is improving Outcome: Progressing Problem: Urinary Incontinence Goal: Perineal skin integrity is maintained or improved Outcome: Progressing Problem: Bowel Incontinence Goal: Perineal Skin Integrity is Maintained or Improved Outcome: Progressing Problem: Pain Goal: Patient's Pain/Discomfort is Manageable Outcome: Progressing * Team Conference - ALLY Zarco - 01/25/2020 12:28 PM CDT Team Conference Note Date: 01/25/2020 Time: 12:34 PM CDT Patient Name: Ferdinand Rasmussen Date of : 1945 Sex: Male Room/Bed: 204/204-1 Primary Insurance: [place]ARE [place] - - Grp: PART B ONLY - Admit Date/Time: 01/20/2020 5:10 PM Patient Active Problem List Diagnosis Date Noted ??? Osteoarthritis 01/20/2020 ??? Hyperglycemia 05/14/2019 ??? Retention of urine 05/12/2019 ??? Diastolic dysfunction 05/12/2019 ??? Seroma 05/12/2019 ??? Abnormality of gait 05/12/2019 ??? Toxic metabolic encephalopathy 05/12/2019 ??? End stage renal failure on dialysis 05/12/2019 ??? Debility 05/11/2019 ??? Moderate malnutrition 05/06/2019 ??? Anemia of chronic renal failure 04/30/2019 ??? Chronic kidney disease, Stage V 04/30/2019 ??? Essential hypertension 04/30/2019 ??? Hyperkalemia 04/30/2019 ??? Hypervolemia 04/30/2019 ??? Malignant neoplasm of prostate 04/30/2019 ??? Other hyperlipidemia 04/30/2019 ??? Metabolic acidosis 04/30/2019 ??? 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 Team Members Present: Attendees: Mike Zamora MD, ALLY Zarco, Kylie Sanchez, PT, Estrella Ford RN, Sol Carty, PharmD, Carlos Caba, OT Lion Tamer in Attendance: ALMAZ NOE SW Patient/Family Present: Patient Present: No Patient's Family Present: No Anticipated Discharge 02/03/2020 Discharge Plan: Discharge Destination Type: Own Home Back-up Discharge Destination: Own Home Potential Barriers to Return to Prior Living (Use comments to be specific): Caregiver limitations;Capacity for self care;Mobility challenge;Architectural/environmental barrier(s);Home modification challenge;DME issue;Potential need for skills/non-skilled services;Potential need for 24 hour care Clinical Barriers : Infection;Dialysis Suicide Prevention: No Concerns identified at this time Medications: Current Facility-Administered Medications: ??? acetaminophen (TYLENOL) tablet 650 mg, 650 mg, Oral, Q6H PRN, Nicole Magaña MD, 650 mg at 01/22/205 ??? allopurinol (ZYLOPRIM) tablet 100 mg, 100 mg, Oral, Nightly, Mike Zamora MD ??? Apixaban (ELIQUIS) tablet 2.5 mg, 2.5 mg, Oral, BID, Nicole Magaña MD, 2.5 mg at 01/25/20 0807 ??? atorvastatin (LIPITOR) tablet 20 mg, 20 mg, Oral, Nightly, Nicole Magaña MD, 20 mg at 01/24/202058 ??? Benzocaine-Menthol (CEPACOL) 1 lozenge, 1 lozenge, Oral, TID PRN, Nicole Magaña MD, 1 lozenge at 01/25/20 0758 ??? bisacodyl (DULCOLAX) suppository 10 mg, 10 mg, Rectal, Daily PRN, Nicole Magaña MD ??? dilTIAZem CD (CARDIZEM CD) 24 hr capsule 120 mg, 120 mg, Oral, Once a day, Carmen Blackman MD ??? diphenhydrAMINE (BENADRYL) tablet 25 mg, 25 mg, Oral, Q6H PRN, Nicole Magaña MD ??? docusate sodium (COLACE) capsule 100 mg, 100 mg, Oral, BID, Nicole Magaña MD, 100 mg at 01/25/20 0810 ??? famotidine (PEPCID) tablet 20 mg, 20 mg, Oral, Q48H, Nicole Magaña MD, 20 mg at 01/25/20 0810 ??? fluconazole (DIFLUCAN) tablet 200 mg, 200 mg, Oral, Once a day, Mike Zamora MD, 200 mg at 01/25/20 0811 ??? furosemide (LASIX) tablet 80 mg, 80 mg, Oral, BID AC, Carmen Blackman MD, 80 mg at 01/24/20 1553 ??? heparin (porcine) injection 1,000 Units, 1,000 Units, Intravenous, TThSat w/ Dialysis, Carmen Blackman MD, 1,000 Units at 01/22/20 1631 ??? HYDROcodone-acetaminophen (NORCO) 5-325 MG per tablet 1 tablet, 1 tablet, Oral, Q6H PRN, 1 tablet at 01/25/20 1226 OR HYDROcodone-acetaminophen (LORCET PLUS) 10-325 MG per tablet 1 tablet, 1 tablet, Oral, Q6H PRN, Nicole Magaña MD, 1 tablet at 01/22/20 1832 ??? ondansetron ODT (ZOFRAN-ODT) disintegrating tablet 4 mg, 4 mg, Oral, Q6H PRN, Nicole Magaña MD ??? polyethylene glycol (MIRALAX) packet 17 g, 17 g, Oral, Once a day, Nicole Magaña MD, 17 g at 01/25/20 0811 ??? rOPINIRole (REQUIP) tablet 0.5 mg, 0.5 mg, Oral, Nightly, Nicole Magaña MD, 0.5 mg at 01/24/202058 ??? sevelamer carbonate (RENVELA) tablet 800 mg, 800 mg, Oral, TID with meals, Nicole Magaña MD, 800 mg at 01/25/20 1221 ??? sodium chloride 0.9 % infusion 0-500 mL, 0-500 mL, Intravenous (Continuous Infusion), PRN During Dialysis, Carmen Blackman MD ??? sodium chloride 0.9 % infusion 200 mL, 200 mL, Intravenous (Continuous Infusion), Once, Carmen Curtis MD ??? tamsulosin (FLOMAX) 24 hr capsule 0.4 mg, 0.4 mg, Oral, Nightly, Nicole Magaña MD, 0.4 mg at 01/24/202058 Pharmacy: Medications: reviewed Anti-infective Durations: Fluconazole 200mg daily for suspected fungal skin infection x 5 days Medication therapy for pain: reviewed As needed non-opioid(s): acetaminophen As needed opioid(s): hydrocodone-acetaminophen Average MEDD: 0-49.99(Not really using) Pain medication regimen plan: decrease dose Pain Management: Tylenol 650mg q6h PRN (1 dose given 01/21); [place] 5-325mg and 10-325mg q6h PRN (1 dose given 01/21). Sedation Impact: [place], Benadryl, Requip Special Discharge Medications: Eliquis, Renvela may be expensive on discharge Special Clinical Monitoring Protocols: Renal Dosing - dialysis Nursing Team Conference: Bladder Continent: Continent Bladder: Describe level of assistance required and any barriers encountered in management: dialysispatient TTHS Bowel Continent: Continent Bowel Devices: None Bowel Interventions: Laxative Pain: Patient denies pain Pain: Describe patient response (degree, duration, reduction) to interventions during past 7 days: last dose of pain ;medication was 12/21 Nutrition Intake: Oral Nutrition Level of Assistance: Moderate assistance Nutrition Interventions: Modified consistency Nutrition: General appetite of patient over past 7 days, how diet tolerated, how responding to interventions, are boluses or supplements: NDD-3 with thin liquids Skin Intact: Incision Skin Interventions: Weight shift/Turned respositioned every 2 hours;Specialty bed-mattress Skin: Describe state of skin alterations and progress, or impediments to healing: lyric in place Wound Rx: None Safety Status: Good safety awareness Safety Interventions: Education;Performed rounding;Supervised activity Cognitive Orientation: Person;Place;Time Cognitive Deficits Observed: None Cognitive: Describe interventions used during past 7 days and response: AA&O XS 4 Quality of Sleep: Restful Sleep: Describe interventions in use and patient response during past 7 days: no complaints PT Weekly Progress Note (Notes from 01/18/20 through 01/25/20) PT Weekly Progress Note by Kylie Sanchez PT at 01/24/2020 2:49 PM Author: Kylie Sanchez PT Service: Therapy Author Type: Physical Therapist Filed: 01/24/2020 2:58 PM Date of Service: 01/24/2020 Regional Sales Associate: Kylie Sanchez PT (Physical Therapist) PT Weekly Progress Note Patient Name: Ferdinand Rasmussen Patient Birthdate: 1945 PT CURRENT FUNCTIONAL STATUS: PT Current Functional Status: PT Current Functional Status: Mr. Ferdinand Rasmussen's current functional mobility is as follows. TRANSFERS: Sit to and from stand with close supervision using rolling walker (improved from contact guard assistance using rolling walker). Stand pivot transfer with close supervision using rolling walker (improved from contact guard assistance using rolling walker). Car transfer with minimal assistance (no change). GAIT: Ambulates up to 212 feet with rolling walker and close supervision (improved from 107 feet with rolling walker (prior level of function) and contact guard assistance). Ambulates across uneven surface with rolling walker and varying contact guard assistance to close supervision (improved from contact guard assistance). ELEVATIONS Ascends/descends 12 steps at 6 inches each with bilateral handrails and contact guard assistance (imrpoved from 6 steps at 6 inches each with bilateral handrails and minimal assistance). Ascends/descends 6 inch curb step with rolling walker and varying close supervision to contact guard assistance. WHEELCHAIR ASSESSMENT: propels manual wheelchair up to 150 feet with close supervision and verbal cues for safety and sequencing (improved from 75 feet with minimal assistance prior to requiring total assistance for all remaining wheelchair mobility). OBJECT LIFE SCIENCES MANAGER: Picks up object from the floor with use of rolling walker and fuse cup expander and close supervision (improved from unsafe to perform secondary to hip precautions). ?? Standardized Assessment: 2 Minute Walk Test: 98 feet with rolling walker (improved from 45 feet with rolling walker); 6 Minute Walk Test: 212 feet with rolling walker (improved from 107 feet with rolling walker); Timed Up and Go: 58.2 seconds with rolling walker (improved from to be assessed). ?? He presents with the below listed impairments. He would benefit from skilled intensive inpatient rehabilitation services at this time in order to further improve upon the below listed impairments andprepare for return to home. Factors in Goal Achievement: Facilitating Factors: Use of compensatory strategies, Improved functional mobility and Improved function Barriers: ROM limitations, Balance deficits, Diminished endurance, Strength limitations, Decreased safety awareness, Impaired skin integrity, Decreased patient understanding and Cognitive deficits Date Last Assessed: 01/24/2020 DME Recommendations Common Therapy DME: Walker(Currently owns) CARE Score Mario: 6: Independent. [place] provides no assistance with tasks. A device may or may not have been used. 5: Set-up or clean-up assistance. [place] sets up or cleans up, but does not assist with tasks. [place] may have assisted prior to or following the activity. 4: Supervision or touching assistance. [place] provides verbal cues or touching/steadying or contactguard assistance. Assistance may be provided throughout the activity or intermittently. 3: Partial/moderate assistance. [place] does less than half the effort. [place] lifts, holds, or supports trunk or limbs, but provides less than half the effort. 2: Substantial/maximal assistance. [place] does more than half the effort. [place] lifts or holds trunk or limbs, and provides more than half the effort. 1: Dependent. [place] does all of the effort, or the assistance of two or more helpers is required for the patient to complete the activity. -: Inconsistent or incomplete documentation Activity not attempted values: 7: Patient refused 9: Not applicable - Not attempted and the patient did not perform this activity prior to the current illness, exacerbation, or injury. 10: Not attempted due to environmental limitations (e.g., lack of equipment, weather constraints) 88: Not attempted due to medical condition or safety concerns Dry Transfer Man Goals: Goal Status on Admission Current Status Car Transfer LTG: Supervision or touching assistance(Pt to perform car transfer with LRAD and distant supervision.) Car Transfer - CARE Score: 3 (01/21/201439 : Kylie Sanchez PT) Car Transfer -CARE Score: 3 (01/24/201447) Walk 10 Feet - CARE Score: 4 (01/21/201439 : Kylie Sanchez PT) Walk 10 Feet - CARE Score: 4 (01/24/201447) Walk 50 Feet with Two Turns - CARE Score: 4 (01/21/201439 : Kylie Sanchez PT) Walk 50 Feet with Two Turns - CARE Score: 4 (01/24/201447) Walk 150 Feet LTG: Independent(Pt to ambulate up to 150 feet with LRAD and Mod I) Walk 150 Feet - CARE Score: 88 (01/21/201439 : Kylie Sanchez PT) Walk 150 Feet - CARE Score: 4 (01/24/201447) Walking 10 Feet on Uneven Surfaces - CARE Score: 4 (01/21/201439 : Kylie Sanchez PT) Walking 10 Feet on Uneven Surfaces - CARE Score: 4 (01/24/201447) 1 Step (Curb) - CARE Score: 3 (01/21/201439 : Kylie Sanchez PT) 1 Step (Curb) - CARE Score: 4(01/24/201447) 4 Steps - CARE Score: 3 (01/21/201439 : Kylie Sanchez PT) 4 Steps - CARE Score: 4 (01/24/201447) 12 Steps LTG: Supervision or touching assistance(Pt to ascend/descend at least 12 steps at 6 incheseach with B HR and supervision to safely enter/exit the home with supervision of family.) 12 Steps - CARE Score: 88 (01/21/201439 : Kylie Sanchez PT) 12 Steps - CARE Score: 4 (01/24/201447) Picking Up Object - CARE Score: 88 (01/21/201439 : Kylie Sanchez PT) Picking Up Object - CAREScore: 4 (01/24/201447) Wheel 50 Feet with Two Turns - CARE Score: 3 (01/21/201439 : Kylie A Sanchez, PT) Wheel 50 Feet with Two Turns - CARE Score: 4 (01/24/20 1448) Wheel 150 Feet - CARE Score: 2 (01/21/20 1440 : Kylie Sanchez, PT) Wheel 150 Feet - CARE Score:4 (01/24/20 1448) PT Other Senior Living Goals Most Recent Value Other PT Dry Transfer Man Goals Other Goals - Senior Living Senior Living 1, Dry Transfer Man 2 Filed on: 01/21/20201456 Other Senior Living Goal 1 Pt to perform all transfer mobility with LRAD and Mod I. Filed on: 01/21/20201456 Other Dry Transfer Man Goal 1 Status Established Filed on: 01/21/20201456 Other Senior Living Goal 2 Pt to perform 2MWT with a distance of at least 70 feet with LRAD. Filed on: 01/21/20201456 Other Senior Living Goal 2 Status Established Filed on: 01/21/20201456 Expected Achievement Date 02/04/20 Filed on: 01/21/20201456 PT Short Term Goal 1: Focus: Car Transfer Details: Pt to perform car transfer with close supervision throughout and maintain proper hip precautions. Expected Achievement Date: 01/31/2020 Goal Status: Partially Achieved PT Short Term Goal 2: Focus: Walking Details: Pt to ambulate up to 150 feet with LRAD and close supervision. (Met 01/24/20). Pt to ambulate up to 150 feet with LRAD and distant supervision over even and uneven surfaces. Expected Achievement Date: 01/31/2020 Status: Established PT Short Term Goal 3: Focus: Steps Details: Pt to ascend/descend at least 12 steps at 6 inches with B HR and close supervision. Expected Achievement Date: 01/31/2020 Status: Partially Achieved PT Short Term Goal 4: Focus: Wheelchair Management Details: Pt to propel wheelchair up to 150 feet with Min A. (Met 01/24/20). Pt to propel wheelchair up to 150 feet with Mod I. Expected Achievement Date: 01/31/2020 Goal Status: Established PT Short Term Goal 5: Details: Pt to perform TUG. (Met 01/24/20). Pt to perform TUG with a score of less than 45 seconds. Expected Achievement Date: 01/31/2020 Goal Status: Established KYLIE SANCHEZ, PT 01/24/2020 OT Weekly Progress Note (Notes from 01/18/20 through 01/25/20) OT Weekly Progress Note by Carlos Caba OT at 01/24/2020 2:58 PM Author: Carlos Caba OT Service: Therapy Author Type: Occupational Therapist Filed: 01/24/2020 3:13 PM Date of Service: 01/24/2020 Regional Sales Associate: Carlos Caba OT (Occupational Therapist) Occupational Therapy Weekly Progress Note Patient Name: Ferdinand Rasmussen Patient Birthdate: 1945 OT Current Functional Status: Ferdinand Rasmussen is completing the following: EATING: with setup assist ORAL HYGIENE:with setup assist TOILETING:with moderate assist (progressed from total) BATHING:with moderate assist UPPER BODY DRESSING:unable to assess (no shirt available) LOWER BODY DRESSING: with minimal assist (progressed from total) FOOTWEAR:with CGA (progressed from total) ROLL RIGHT/LEFT:with min assist SIT TO LYING:with min assist LYING TO SIT: with min assist SIT TO STAND: with CGA (progressed from min assist) CHAIR/BED TO CHAIR TRANSFER:with CGA (progressed from min assist) TOILET TRANSFER:with CGA (progressed from min assist) Ferdinand Rasmussen is demonstrating progress with toileting, Upper/Lower body dressing, and transfers.In addition to progress with ADLs, Mr. Rasmussen has demonstrated improved endurance and standing tolerance. Ferdinand Rasmussen continues to present with impaired functional mobility, impaired balance, impaired cognition, delayed processing/direction following, and impaired strength limiting independence with ADLs and functional transfers. Ferdinand Rasmussen would benefit from continued intensive OT to address continued barriers for safe return to prior level of function. Facilitating Factors in Goal Achievement: Patient understanding and knowledge, Improved functional mobility, Improved balance, Improved strength, Use of compensatory strategies and Decrease in pain Barriers to Goal Achievement: Balance deficits, Diminished endurance, Decreased safety awareness, Strength limitations and Cognitive deficits Date Last Assessed: 01/24/2020 Patient needs assistance with the following activities: Activities of daily living, Sitting balance, Reaching, Going out in the community, Use of bathroom equipment, Positioning, Rolling and Memory CARE Score Mario: 6: Independent. [place] provides no assistance with tasks. A device may or may not have been used. 5: Set-up or clean-up assistance. [place] sets up or cleans up, but does not assist with tasks. [place] may have assisted prior to or following the activity. 4: Supervision or touching assistance. [place] provides verbal cues or touching/steadying or contactguard assistance. Assistance may be provided throughout the activity or intermittently. 3: Partial/moderate assistance. [place] does less than half the effort. [place] lifts, holds, or supports trunk or limbs, but provides less than half the effort. 2: Substantial/maximal assistance. [place] does more than half the effort. [place] lifts or holds trunk or limbs, and provides more than half the effort. 1: Dependent. [place] does all of the effort, or the assistance of two or more helpers is required for the patient to complete the activity. -: Inconsistent or incomplete documentation Activity not attempted values: 7: Patient refused 9: Not applicable - Not attempted and the patient did not perform this activity prior to the current illness, exacerbation, or injury. 10: Not attempted due to environmental limitations (e.g., lack of equipment, weather constraints) 88: Not attempted due to medical condition or safety concerns Senior Living Goals: Goal Status on Admission Current Status Eating LTG: Independent Eating - CARE Score: 5 (01/21/20821 : Carlos Caba OT) Eating - CARE Score: 5 (01/24/201453) Oral Hygiene LTG: Independent Oral Hygiene - CARE Score: 5 (01/21/20821 : Carlos Caba OT) Oral Hygiene - CARE Score: 5 (01/24/201453) Toileting Hygiene LTG: Independent Toileting Hygiene - CARE Score: 1 (01/21/20821 : Carlos Caba OT) Toileting Hygiene - CARE Score: 3 (01/24/201453) Shower/Bathe Self LTG: Supervision or touching assistance Shower/Bathe Self - CARE Score: 3 (01/21/20821 : Carlos Caba OT) Shower/Bathe Self - CARE Score: 3 (01/24/201453) Upper Body Dressing LTG: Independent Upper Body Dressing - CARE Score: 10 (01/21/20821 : Carlos Elder OT) Upper Body Dressing - CARE Score: 10 (01/24/201453) Lower Body Dressing LTG: Supervision or touching assistance Lower Body Dressing - CARE Score: 1 (01/21/20821 : Carlos A Edward, OT) Lower Body Dressing - CARE Score: 3 (01/24/201453) Putting On/Taking Off Footwear - CARE Score: 1 (01/21/20821 : Carlos Caba OT) Putting On/Taking Off Footwear - CARE Score: 4 (01/24/201453) Roll Left and Right - CARE Score: 3 (01/21/20821 : Carlos Caba OT) Roll Left and Right - CAREScore: 3 (01/24/201453) Sit to Lying - CARE Score: 3 (01/21/20821 : Carlos Caba OT) Sit to Lying - CARE Score: 3 (01/24/201453) Lying to Sitting on Side of Bed - CARE Score: 3 (01/21/20821 : Carlos Caba OT) Lying to Sitting on Side of Bed - CARE Score: 3 (01/24/201453) Sit to Stand - CARE Score: 3 (01/21/20821 : Carlos Caba OT) Sit to Stand - CARE Score: 4 (01/24/201453) Chair/Qdd-vo-Tmgna Transfer LTG: Independent Chair/Iau-vz-Slzxx Transfer - CARE Score: 3 (01/21/20821 : Carlos Caba OT) Chair/Nds-oy-Wedgw Transfer - CARE Score: 4 (01/24/201453) Toilet Transfer LTG: Independent Toilet Transfer - CARE Score: 3 (01/21/20821 : Carlos Caba OT) Toilet Transfer - CARE Score: 4 (01/24/201453) OT Short Term Goal 1: Focus: Toileting Hygiene Details: Pt will complete with moderate assistance using AD and DME as needed. ACHIEVED With min assist using RW as needed. Expected Achievement Date: 01/31/2020 Goal Status: Established OT Short Term Goal 2: Focus: Shower/Bathe Details: Pt will complete bathing with minimal assistance while sponge bathing at the sink Expected Achievement Date: 01/31/2020 Goal Status: Not Achieved OT Short Term Goal 3: Focus: Lower Body Dressing Details: Pt will complete lower body dressing with maximal assistance using LB AE and AD as needed.ACHIEVED. With CGA using assistive device and adaptive equipment as needed. Expected Achievement Date: 01/31/2020 Goal Status: Established OT Short Term Goal 4: Focus: Chair/Bed Transfer Details: Pt will complete bed/chair transfer with supervision using LRAD Expected Achievement Date: 01/31/2020 Goal Status: Not Achieved OT Short Term Goal 5: Focus: Toilet Transfer Details: Pt will complete toilet transfer with supervision using LRAD Expected Achievement Date: 01/31/2020 Goal Status: Not Achieved CARLOS CABA OT 01/24/2020 [employer] Weekly Progress Note (Notes from 01/18/20 through 01/25/20) No notes of this type exist for this encounter. Respiratory Team Conference: Nutrition Team Conference: Dietary Orders (From admission, onward) Start Ordered 01/25/20 0939 Adult Diet Therapeutic Diet; Renal without dialysis; NDD II (5 Minced & Moist); All Liquids (0 Thin) Diet effective now End/Expires: Until Specified Question Answer Comment Diet Type: Therapeutic Diet Therapeutic Diet: Renal without dialysis Diet Texture: NDD II (5 Minced & Moist) Liquid Consistency All Liquids (0 Thin) Place order in [facility] system. Done 01/25/20 0942 Height: 5' 10 (177.8 cm) Admit Weight: 132 lb (59.9 kg) Current Weight: 133 lb 6.4 oz (60.5 kg) Body mass index is 19.14 kg/m??. Calorie Count: Plan of Care - Nutrition Care Plans (Notes from 01/18/20 through 01/25/20) 1 Author: Tara Alberts RD Service: -- Author Type: Registered Dietitian Filed: 01/22/2020 2:16 PM Date of Service: 01/22/2020 2:16 PM Status: Signed Regional Sales Associate: Tara Alberts RD (Registered Dietitian) Problem: Increased Nutrient Needs Description: Related to: Increased demand for nutrient (wound healing, chronic infection) As Evidenced By: hip arthroplasty Goal: Clinical Nutrition Goal Outcome: Progressing Flowsheets (Taken 01/22/2020 1402) Primary Goal: Adequate Meals and Snack/Oral Nutrition Supplement Intake Primary Goal Progress: New Primary Indicator/Monitor: po intake 50-100% Secondary Goal: Weight Maintenance Secondary Goal Progress: New Secondary Indicator/Monitor: avoid weight loss Intervention: Medical Nutrition Therapy Interventions Flowsheets (Taken 01/22/2020 1402) Meals and Snacks: General/healthful diet Supplements: (refuses supplements) -- Coordination of Nutrition Care: Continue to Monitor Wound: Wound Rx: None Due to the COVID-19 Pandemic, this Team Conference was held telephonically. CASE MANAGEMENT TEAM CONFERENCE REPORT. Medical Issues: no medical barriers to discharge. No nursing barriers. Dialysis T, Th, Sat. [facility] [place]. Eliquis and renzela. NEW DIABETIC:N/A DIABETIC EDUCATION REQUIRED:N/A Living Environment:2-story house, number of outside stairs: 10 Physical Function:CGA with 12 steps. 200ft Close supervision. Min A with I adls. Psychosocial/Cognitive Issues:cognitive barriers at baseline. Speech picking up. Equipment Needs: no barriers Discharge Disposition:Home 01/31 with DI. Cosigned by Mike Zamora MD at 01/25/2020 4:26 PM CDT Associated attestation - Mike Zamora MD - 01/25/2020 5:26 PM EDT A team conference was held on 01/25/2020 and included members of the multidisciplinary team identified in the attendance section of this note. Issues related to Mr. Rasmussen's status include; noted dysphagia complaints. [employer] has recommended a modified diet and may do an instrumental evaluation later. Mr. Frankss progress toward rehabilitation goals, impediments to attaining these goals, and associated revisions to the treatment plans and goals were discussed by the team. Details of this multidisciplinary process are included below. Issues of particular significance at this time regarding Mr. Rasmussen's progress towards rehabilitation goals and treatment plan include: focus on transfer skills and gait pattern. As discussed during this team conference, I concur with the decisions set forth by the members of the multidisciplinary team. Mr. Rasmussen continues to require frequent physician visits and 24 hours per day acute rehabilitation nursing care in order to meet medical needs and progress toward the achievement of the rehabilitation goals. MIKE ZAMORA MD 01/25/2020 4:25 PM CDT * Plan of Care - Estrella Ford RN - 01/25/2020 11:53 AM CDT Problem: Infection Goal: Absence of infection and prevention of transmission during hospitalization Outcome: Progressing Problem: Fall Safety Goal: Free from fall injury Outcome: Progressing Problem: Knowledge Deficit Goal: Patient and/or family demonstrate readiness to learn Outcome: Progressing Goal: Patient and/or family verbalizes understanding of education, and/or performs desired skill Outcome: Progressing Problem: Discharge Planning Goal: Discharge to home or other facility with appropriate resources Outcome: Progressing Goal: 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 in role Outcome: Progressing Problem: Delirium Goal: Prevent and Manage Delirium Outcome: Progressing Problem: Knowledge Deficit Goal: Patient/family/caregiver demonstrates understanding of disease process, treatment plan, medications, and discharge instructions Outcome: Progressing Problem: Potential for Compromised Skin Integrity Goal: Skin integrity is maintained or improved Outcome: Progressing Goal: Nutritional status is improving Outcome: Progressing Problem: Urinary Incontinence Goal: Perineal skin integrity is maintained or improved Outcome: Progressing Problem: Bowel Incontinence Goal: Perineal Skin Integrity is Maintained or Improved Outcome: Progressing Problem: Pain Goal: Patient's Pain/Discomfort is Manageable Outcome: Progressing * OT Treatment Note - Carlos Caba OT - 01/25/2020 10:31 AM CDT Occupational Therapy Treatment Patient Name: Ferdinand Rasmussen Patient Birthdate: 1945 Pain Assessment Pain Context: Therapy Assessment Prior to Treatment (01/25/201030) Pain Score: 10 (01/25/20 103) Pain Type: Acute pain (01/25/20 103) Pain Location: Throat (01/25/20 103) Pain Descriptors: Sore, Tightness (01/25/20 103) Pre-therapy pain intervention required: Patient expressed pain is tolerable/able to proceed, Nurse notified (01/25/201030) ADL Status: Toileting: Contact Guard Toileting Where Assessed: Toilet Toilet Comments: Pt able to complete 3/3 steps of toileting with steadying only for safety and incidental for reaching. Dressing Upper Body: Setup Upper Body Dressing Where Assessed: Sitting in chair Upper Body Dressing Comments: Pt able to don shirt with setup assist and increased time. Toilet Transfer: Contact Guard and Close Supervision Toilet Transfer to: Standard toilet Toilet Transfer From: Wheelchair Toilet Transfer Technique: Ambulatory Toilet Transfers Comments: Pt ambulates to and from toilet from wheelchair outside of bathroom withvarying close supervision/CGA for impaired balance LE strength especially with lowering to toilet. Bed, Chair, Wheelchair Transfer: Close Supervision Bed/Chair Transfer to: Stand Bed/Chair Transfer from: Wheelchair Bed/Chair Transfer Technique: Sit to stand and Stand to sit Assistive Devices Used: No device Bed/Chair Transfer Comments: Close supervision due to impaired balance, strength and decreased safety awareness with use of RW Standing Tolerance Time (mins): 5 minutes, 7 minutes Activity: Money management, dynamic reaching Functional Standing Tolerance Comments: Pt participates in standing balance and tolerance training through money management task. Pt able to stand for 5-7 minutes x2 trials with use of RW and close supervision for balance/safety. Pt's tolerance limited secondary to impaired endurance. Pt participates in standing tolerance training to improve tolerance/balance for self-care and functional mobility. Standing Assist: Close Supervision and Contact Guard Cognitive Skills Training: Cognitive Skills Training: Activities to improve divided attention and Routine problem solving (Pt participates in cognitive skills training through use of money management board. Pt prompted to retrieve x7 mildly complex amounts. Pt able to retrieve amounts accurately with minimal to moderate vebal cues. Pt participates to improve skills during ADLs) Treatment, Outcomes and Plan: OT Narrative:: Pt participates well in therapy on this date demonstrating increased independence with upper body dressing and standing tolerance. Patient remained up sitting in chair at end of session with pelvic positioning belt on, chair alarm in place, call light and phone within reach. OT Treatment Outcomes:: Safety device reapplied and Patient tolerated treatment well OT Summary Plan of Care: Continue with current plan of care Pain Evaluation and Follow-up Pain Reassessment: 10(Pt reports no change in sore throat) (01/25/20 111) Nursing notified of patient's pain assessment: Primary Nurse (01/25/20 111) Therapy Minutes Individual Concurrent Co-Treat Time In : 1031 Time Out: 1116 Total Time with Patient (Min): 45 min Missed Minutes : 0 CARLOS CABA OT 01/25/2020 * PT Group Treatment - Emelina Grant, PT - 01/25/2020 9:35 AM CDT Physical Therapy Group Treatment Patient Name: Ferdinand Rasmussen Patient Birthdate: 1945 Patient Subjective Report - Pt sitting up in wheelchair, agreeable to participation in group therapy session. Pain Assessment Pain Context: Therapy Assessment Prior to Treatment (01/25/20934) Pain Assessment: None/denies pain (01/25/20934) Pain Score: 0 - No pain (01/25/20934) Name of Group Session:: Lower Extremity Therex Group and Dynamic Balance and Gait Group Patient's Indvidualized Goals for Group Session:: Decrease falls & fear of falling, Enhance sitting or standing balance, Facilitate discharge to the community, Improve gait in community setting, Improve mobility skills with Stairs, Curbs, and/or Ramps, Improve motor initating skills, Improve quality of movements, Improve seated/standing weight shifting and Lower extremity strength and endurance Justification for Group Intervention: To provide psychosocial support and improve participation in overall rehab program, Facilitate learning through peer interactions, Refine quality of motor skillswith increased challenges of a social setting, Provide additional environmental stimulation to challenge skill development, Prepare for discharge to community with motor performance in social settingand Motor skills training in structured social setting Skilled Services Provided: Activity was graded or modified to meet the patient's needs Education provided:: Educated on ambulation, tolerance to positional changes, navigation of obstacles, LE strengthening, dynamic standing balance, transfers, and safety in group setting. Patients Response to Treatment:: He expressed positive feelings for having worked in group setting,supported other group members, and tolerated session well. Returned to room with seat belt and chair alarm on. Progress Towards Goals:: Goals met for session, Improved endurance noted from previous group interactions, Improved gait, Improved strength demonstrated with repeated trails, Motor skills progressing, Safety techniques practiced and improvements noted, Strategies effectively used and Tolerated treatment with modifications to task as needed Group Note Narrative Summary:: Mr. Rasmussen attended group session this AM designed to improve LE strength, navigation of obstacles, ambulation, standing balance and functional mobility as well as promote the benefits of group interaction such as increased motivation and psychological wellbeing. Initiate with ambulation x 200 feet with WW and SBA for safety, with cues provided throughout to maintain close proximity to walker and facilitate upright posture. Additionally performs standing ring toss without UE support with 7 bags x 2 and SBA for safety for carryover to improved dynamic standing balance needed for standing ADL tasks. Pt performs 60 foot obstacle course x 2 with WW for carryover to improved navigation of community and home environments. Performs stepping atop and walking across 4step, stepping over 3 two-inch steps placed on floor, and stepping atop and walking across uneven foam floor mat with two panels doubled over at either end to simulate outdoor environments. Requires CGA throughout for safety, however 1 instance of min A when stepping over obstacles due to minor LOBto R side. Occasional cues required for walker management and maintaining upright posture. Pt additionally performs blocked practice STS x 5 reps to WW for carryover to improved LE strength and cardiovascular endurance needed for community mobility- performs with SBA and increased time for completion. Finish session with the following BLE strengthening exercises in standing with WW for carryover to improved strength needed for functional transfers and mobility, x10 each: marches, fwd hip flex, B heel raise, and hamstring curls. Pt expressed positive feelings for having worked in group setting. Pt on RA and maintains spinal precautions throughout. Tolerates treatment session well. Patient benefited from participation in the ambulation and dynamic balance group treatments as evidenced by improved functional endurance and balance. Plan for continued interventions:: Continue with current plan of care Pain Evaluation and Follow-up Pain Reassessment: No pain (01/25/20 1020) Nursing notified of patient's pain assessment: Not indicated - pain score 2 or less (01/25/20 1020) Time In : 0935 Time Out: 1020 Breaks/Pauses (Min): 0 mins Time calculation (min): 45 min Missed Minutes : 0 EMELINA GRANT PT 01/25/2020 * [employer] Swallowing Evaluation - [facility] - 01/25/2020 9:00 AM CDT Speech Language Pathologist Swallow Evaluation Patient Name: Ferdinand Rasmussen Patient Birthdate: 1945 Patient Subjective Report - I had to send it back because I couldn't eat it Pain Assessment Pain Context: Therapy Assessment Prior to Treatment (01/25/20901) Pain Assessment: NRS 0-10 (01/25/20901) Pain Score: 0 - No pain(It only hurts when I swallow.) (01/25/20901) Prior Function Level of [place]: Independent with ambulation using an assistive device;Assist with IADLs(w/ use of a RW for mobility within the home, Nephew assists with all IADLs) (01/21/2043 : Carlos Caba, OT) Lives With: Family(Nephew) (01/21/2043 : Carlos Caba OT) Receives Help From: Family (01/21/20742 : Carlos Caba OT) Vocational: Retired (01/21/20742 : Carlos Caba OT) Leisure: Hobbies-yes (Comment)([employer]) (01/21/20742 : Carlos Caba OT) Pertinent history: Other (comment) and CVA (cancer, cronic kidney disease, end stage renal disease,HTN, hypercholesterolemia) Auditory and visual status/observations: Hearing WFL Diet at current time: All liquids no restrictions, Pills crushed in puree and NDD III (advanced/mechanical soft) / IDDSI 6 Soft & Bite Sized Oral peripheral speech mechanism: Decreased lingual ROM, Decreased lingual coordination, Dysarthriaand WFL for purpose of deglutition Dentition and oral health status: Patient has dentures but not in place or reports missing Respiratory status - tracheostomy tube: Room air Patient complaints as related to swallowing: Other (comment) (pain when swallowing) Cognitive status: Able to follow directions/strategies Motor control: Fed self during exam Protective reflexes and vocal quality: Weak cough/throat clear Consistencies tested: NDD III (advanced/mechanical soft) / IDDSI 6 Soft & Bite Sized, NDD II (mechanically altered/moist fine chop) / IDDSI 5 Minced & Moist and Water Oral phase impairments: Dentition status impacts mastication Pharyngeal phase impairments: Audible swallow suggesting incoordination, Delayed swallow trigger, Facial grimacing and Multiple swallows : Pt. reports solids come back up (pointing to thoat area) and require multiple swallows to attempt to go down. Clinical impressions: A non-instrumental assessment cannot definitely rule out aspiration, Mild severity, No overt signs/symptoms of aspiration across tested consistencies and Pharyngeal dysphagia Special Test and Outcome Measures: Zhao Assessment of Swallowing Ability (MASA) Goals (in their own words): To get out of here as quickly as I can Goals Generated By:: Patient generated response independently Quality Scores Admission: Dry Transfer Man Goals: Goal Swallowing Swallowing Details: Pt will tolerate least restrictive diet with no clinical signs of aspiration, utilizing instructed compensatory strategies, to improve efficiency of swallow for increased hydration and nutrition. (01/25/20 1250) Swallowing Expected Achievement Date: 02/08/20 (01/25/20 1250) Additional Status & Goals: N/A DIRECTOR IN[employer] SALES Short Term Goals: Auditory Comprehension: Details: Client will particpate in a barium swallow study as appropriate. Expected Achievement Date: 02/01/2020 Goal Status: Established Other STG 1: Focus: Swallowing Details: Client will tolerate IDDSI - 5 (minced and moist diet) and thin liquids using compensatoryswallowing strategies with 90% acc Lisa, to improve swallowing safety and increase hydration and nutrition. Expected Achievement Date: 02/01/2020 Goal Status: Established Evaluation Summary: Mr. Rasmussen is a 74-year-old male referred to speech therapy for evaluation and treatment following recent hospitalization with a diagnosis of Unilateral primary osteoarthritis, right hip and presence of left artificial hip joint. Comorbidities include ESRD, osteoarthritis. Past medical history is significant for CVA, HTN, Cancer, pre hypercholesterolemia. Prior to this hospitalization pt. Was able to consume a regular diet per pt. report. Precautions include: aspiration, safety. Mr. Rasmussen's current functional status is as follows: DIET: IDDSI-5 (minced and moist) and thin liquids. MASA score: 175 indicating mild dysphagia severity rating and nil risk for aspiration. Pt. Reports significant pain (level 9) in the throat region when swallowing. Pt. Reports he has no difficulty swallowing liquids and jello, but has to swallow multiple times to attempt to clear solids as they come back up. Pt. Reports the pain started in the morning on the previous day. SWALLOWING STRATEGIES: Slow rate, small bites/sips, alternate solids/liquids, upright with all intake. These impairments limit Mr. Rasmussen ability to safely consume a regular diet. Mr. Rasmussen demonstrates good potential for improvement and would benefit from intensive speech therapy services 45-90 minutes daily in an individualized and/or group setting, 5 days/week, focusing on increased safety and independence. Plan of care to include: dysphagia assessment and treatment, compensatory strategy training, and patient/family training and education. Recommended diet: NDD II (mechanically altered/moist fine chop) / IDDSI 5 Minced & Moist, All liquids no restrictions, Therapeutic trials with DIRECTOR [employer] SALES only and Pills whole in puree Compensatory swallowing techniques recommended: Alternate solids/liquids-liquid wash, Eat slowly-control rate, Small bites, Small sips and Seated upright with all PO intake Level of supervision at meals recommended: Assistance with set-up and Patient considered nutrition/hydration risk Therapy Recommendations: Speech therapy services recommended Treatment plan discussed with: Patient Patient/Caregiver Training: Dysphagia, Current diet, Completed with patient, Swallow strategies andTherapy goals and treatment plan Problem List:: Pharyngeal Dysphagia DIRECTOR INB[employer] SALES to Provide the Following Dysphagia Services:: Diet modification as needed and Train in compensatory swallowing strategies Frequency:: 45-90 minutes 5 out of 7 days Therapist that Will [place] Plan of Care: [facility] Pain Evaluation and Follow-up Pain Reassessment: No pain (01/25/20929) Nursing notified of patient's pain assessment: Not indicated - pain score 2 or less (01/25/20929) Therapy Minutes CBSE Evaluation (ST) Time In : 899 Time Out: 929 Breaks/Pauses (Min): 0 mins Time calculation (min): [address] 01/25/2020 * PT Treatment Note - Neli Argueta PTA - 01/25/2020 7:29 AM CDT PT Treatment Patient Name: Ferdinand Rasmussen Patient Birthdate: 1945 Patient Subjective Report - I just can't swallow! Pain Assessment Pain Context: Other (comment)(towards end of session) (01/25/20 0856) Pain Assessment: NRS 0-10 (01/25/20728) Pain Score: 0 - No pain (01/25/20728) Bed Mobility: Performed on bed and Short sit to - from supine Bed Mobility Level of Assistance: Close Supervision Bed Mobility Comment: Supine to sit from bed in room SBA for safety and cues Surface: Indoor and Even surface Assistive Device: RW Ambulation Level of Assistance: Close Supervision Distance (feet): 150 Gait Analysis: Amb's 150ft to 200ft 3x with WW with close SBA for balance and safety Pt maintains HP's well during ambulation. Displays slow joao and increased forward lean on walker Step to gt pattern Requires VC's for upright posture while up walking Transfer to 1: Wheelchair Transfer from 1: Bed Technique 1: Stand pivot Transfer Level of Assistance 1: Close Supervision Trials/Comments1: Used wh walker Transfer to 2: Stand Transfer from 2: Wheelchair Technique 2: Sit to stand and Stand to sit Transfer Level of Assistance 2: Close Supervision Trials/Comments 2: To walker Wheelchair Level of Assistance: Setup Distance Traveled in Wheelchair (feet): 100 Wheelchair Type: Manual Surface: Indoor and Even surface Propulsion Method: Bilateral upper extremity Wheelchair Propulsion Level of Assistance: Setup Wheelchair Analysis: Pt requires asst to unlock WC brakes asst with turns while propelling WC Seated Position: Sitting LE ex's/WC propulsion RLE: Full weight-bearing LLE: Full weight-bearing RUE: Full weight-bearing LUE: Full weight-bearing Static Sitting Balance Support: Feet supported Static Sitting Level of Assistance: Modified Independent Static Sitting # of Mins/Comments: < 5 mins (sitting at EOB) Therapeutic Activities and Neuromuscular Re-education: While sitting up in WC: pt kishan AROM/STRETCHING: kishan sitting knee flexion/extensions, ankle PF/DF and hip flexion/extensions 2-sets of 20 reps Educated pt on hip precautions. Pt able to state one without VC's. Stated that he cant bend forwardpast 90* Educated in other 2 to include: No rotation and no crossing legs while supine or sitting Repeated sit to stands, 5x from WC level To wh walker with SBA for safey and cues for HP's Focusing on force production and proper technique Were respiratory Interventions provided?: No PT Treatment Outcomes:: Patient is progressing toward STG, Patient tolerated treatment well and Safety device reapplied PT Summary:: Patient remained up sitting in chair at end of session with pelvic positioning belt on, chair alarm in place, call light and phone within reach. PT Summary Plan of Care: Continue with current plan of care Pain Evaluation and Follow-up Pain Reassessment: 2 (01/25/20 4389) Nursing notified of patient's pain assessment: Not indicated - pain score 2 or less (01/25/20 0856) Therapy Minutes Individual Concurrent Co-Treat Time In : 728 Time Out: 899 Total Time with Patient (Min): 91 min Missed Minutes : 1 NELI ARGUETA PTA 01/25/2020 * Plan of Care - Jackie Michelle RN - 01/25/2020 3:06 AM CDT Problem: Infection Goal: Absence of infection and prevention of transmission during hospitalization Outcome: Progressing Problem: Fall Safety Goal: Free from fall injury Outcome: Progressing Problem: Knowledge Deficit Goal: Patient and/or family demonstrate readiness to learn Outcome: Progressing Goal: Patient and/or family verbalizes understanding of education, and/or performs desired skill Outcome: Progressing Problem: Discharge Planning Goal: Discharge to home or other facility with appropriate resources Outcome: Progressing Goal: 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 in role Outcome: Progressing Problem: Delirium Goal: Prevent and Manage Delirium Outcome: Progressing Problem: Knowledge Deficit Goal: Patient/family/caregiver demonstrates understanding of disease process, treatment plan, medications, and discharge instructions Outcome: Progressing Problem: Potential for Compromised Skin Integrity Goal: Skin integrity is maintained or improved Outcome: Progressing Goal: Nutritional status is improving Outcome: Progressing Problem: Urinary Incontinence Goal: Perineal skin integrity is maintained or improved Outcome: Progressing Problem: Bowel Incontinence Goal: Perineal Skin Integrity is Maintained or Improved Outcome: Progressing Problem: Pain Goal: Patient's Pain/Discomfort is Manageable Outcome: Progressing * OT Weekly Progress Note - Carlos Caba OT - 01/24/2020 2:58 PM CDT Occupational Therapy Weekly Progress Note Patient Name: Ferdinand Rasmussen Patient Birthdate: 1945 OT Current Functional Status: Ferdinand Rasmussen is completing the following: EATING: with setup assist ORAL HYGIENE:with setup assist TOILETING:with moderate assist (progressed from total) BATHING:with moderate assist UPPER BODY DRESSING:unable to assess (no shirt available) LOWER BODY DRESSING: with minimal assist (progressed from total) FOOTWEAR:with CGA (progressed from total) ROLL RIGHT/LEFT:with min assist SIT TO LYING:with min assist LYING TO SIT: with min assist SIT TO STAND: with CGA (progressed from min assist) CHAIR/BED TO CHAIR TRANSFER:with CGA (progressed from min assist) TOILET TRANSFER:with CGA (progressed from min assist) Ferdinand Rasmussen is demonstrating progress with toileting, Upper/Lower body dressing, and transfers.In addition to progress with ADLs, Mr. Rasmussen has demonstrated improved endurance and standing tolerance. Ferdinand Rasmussen continues to present with impaired functional mobility, impaired balance, impaired cognition, delayed processing/direction following, and impaired strength limiting independence with ADLs and functional transfers. Ferdinand Rasmussen would benefit from continued intensive OT to address continued barriers for safe return to prior level of function. Facilitating Factors in Goal Achievement: Patient understanding and knowledge, Improved functional mobility, Improved balance, Improved strength, Use of compensatory strategies and Decrease in pain Barriers to Goal Achievement: Balance deficits, Diminished endurance, Decreased safety awareness, Strength limitations and Cognitive deficits Date Last Assessed: 01/24/2020 Patient needs assistance with the following activities: Activities of daily living, Sitting balance, Reaching, Going out in the community, Use of bathroom equipment, Positioning, Rolling and Memory CARE Score Mario: 6: Independent. [place] provides no assistance with tasks. A device may or may not have been used. 5: Set-up or clean-up assistance. [place] sets up or cleans up, but does not assist with tasks. [place] may have assisted prior to or following the activity. 4: Supervision or touching assistance. [place] provides verbal cues or touching/steadying or contactguard assistance. Assistance may be provided throughout the activity or intermittently. 3: Partial/moderate assistance. [place] does less than half the effort. [place] lifts, holds, or supports trunk or limbs, but provides less than half the effort. 2: Substantial/maximal assistance. [place] does more than half the effort. [place] lifts or holds trunk or limbs, and provides more than half the effort. 1: Dependent. [place] does all of the effort, or the assistance of two or more helpers is required for the patient to complete the activity. -: Inconsistent or incomplete documentation Activity not attempted values: 7: Patient refused 9: Not applicable - Not attempted and the patient did not perform this activity prior to the current illness, exacerbation, or injury. 10: Not attempted due to environmental limitations (e.g., lack of equipment, weather constraints) 88: Not attempted due to medical condition or safety concerns Senior Living Goals: Goal Status on Admission Current Status Eating LTG: Independent Eating - CARE Score: 5 (01/21/20821 : Carlos Caba OT) Eating - CARE Score: 5 (01/24/201453) Oral Hygiene LTG: Independent Oral Hygiene - CARE Score: 5 (01/21/20821 : Carlos Caba OT) Oral Hygiene - CARE Score: 5 (01/24/201453) Toileting Hygiene LTG: Independent Toileting Hygiene - CARE Score: 1 (01/21/20821 : Carlos Caba OT) Toileting Hygiene - CARE Score: 3 (01/24/201453) Shower/Bathe Self LTG: Supervision or touching assistance Shower/Bathe Self - CARE Score: 3 (01/21/20821 : Carlos Caba OT) Shower/Bathe Self - CARE Score: 3 (01/24/201453) Upper Body Dressing LTG: Independent Upper Body Dressing - CARE Score: 10 (01/21/20821 : Carlos Elder OT) Upper Body Dressing - CARE Score: 10 (01/24/201453) Lower Body Dressing LTG: Supervision or touching assistance Lower Body Dressing - CARE Score: 1 (01/21/20821 : Carlos Caba OT) Lower Body Dressing - CARE Score: 3 (01/24/201453) Putting On/Taking Off Footwear - CARE Score: 1 (01/21/20821 : Carlos Caba OT) Putting On/Taking Off Footwear - CARE Score: 4 (01/24/201453) Roll Left and Right - CARE Score: 3 (01/21/20821 : Carlos Caba OT) Roll Left and Right - CAREScore: 3 (01/24/201453) Sit to Lying - CARE Score: 3 (01/21/20821 : Carlos Caba OT) Sit to Lying - CARE Score: 3 (01/24/201453) Lying to Sitting on Side of Bed - CARE Score: 3 (01/21/20821 : Carlos Caba OT) Lying to Sitting on Side of Bed - CARE Score: 3 (01/24/201453) Sit to Stand - CARE Score: 3 (01/21/20821 : Carlos Caba OT) Sit to Stand - CARE Score: 4 (01/24/201453) Chair/Xcn-ck-Yevpg Transfer LTG: Independent Chair/Vux-dx-Vyohe Transfer - CARE Score: 3 (01/21/20821 : Carlos Caba OT) Chair/Zjb-kh-Qkmiq Transfer - CARE Score: 4 (01/24/201453) Toilet Transfer LTG: Independent Toilet Transfer - CARE Score: 3 (01/21/20821 : Carlos Caba OT) Toilet Transfer - CARE Score: 4 (01/24/201453) OT Short Term Goal 1: Focus: Toileting Hygiene Details: Pt will complete with moderate assistance using AD and DME as needed. ACHIEVED With min assist using RW as needed. Expected Achievement Date: 01/31/2020 Goal Status: Established OT Short Term Goal 2: Focus: Shower/Bathe Details: Pt will complete bathing with minimal assistance while sponge bathing at the sink Expected Achievement Date: 01/31/2020 Goal Status: Not Achieved OT Short Term Goal 3: Focus: Lower Body Dressing Details: Pt will complete lower body dressing with maximal assistance using LB AE and AD as needed.ACHIEVED. With CGA using assistive device and adaptive equipment as needed. Expected Achievement Date: 01/31/2020 Goal Status: Established OT Short Term Goal 4: Focus: Chair/Bed Transfer Details: Pt will complete bed/chair transfer with supervision using LRAD Expected Achievement Date: 01/31/2020 Goal Status: Not Achieved OT Short Term Goal 5: Focus: Toilet Transfer Details: Pt will complete toilet transfer with supervision using LRAD Expected Achievement Date: 01/31/2020 Goal Status: Not Achieved CARLOS CABA OT 01/24/2020 * PT Weekly Progress Note - Kylie Sanchez, PT - 01/24/2020 2:49 PM CDT PT Weekly Progress Note Patient Name: Ferdinand Rasmussen Patient Birthdate: 1945 PT CURRENT FUNCTIONAL STATUS: PT Current Functional Status: PT Current Functional Status: Mr. Ferdinand Rasmussen's current functional mobility is as follows. TRANSFERS: Sit to and from stand with close supervision using rolling walker (improved from contact guard assistance using rolling walker). Stand pivot transfer with close supervision using rolling walker (improved from contact guard assistance using rolling walker). Car transfer with minimal assistance (no change). GAIT: Ambulates up to 212 feet with rolling walker and close supervision (improved from 107 feet with rolling walker (prior level of function) and contact guard assistance). Ambulates across uneven surface with rolling walker and varying contact guard assistance to close supervision (improved from contact guard assistance). ELEVATIONS Ascends/descends 12 steps at 6 inches each with bilateral handrails and contact guard assistance (imrpoved from 6 steps at 6 inches each with bilateral handrails and minimal assistance). Ascends/descends 6 [address] step with rolling walker and varying close supervision to contact guard assistance. WHEELCHAIR ASSESSMENT: propels manual wheelchair up to 150 feet with close supervision and verbal cues for safety and sequencing (improved from 75 feet with minimal assistance prior to requiring total assistance for all remaining wheelchair mobility). OBJECT LIFE SCIENCES MANAGER: Picks up object from the floor with use of rolling walker and fuse cup expander and close supervision (improved from unsafe to perform secondary to hip precautions). ?? Standardized Assessment: 2 Minute Walk Test: 98 feet with rolling walker (improved from 45 feet with rolling walker); 6 Minute Walk Test: 212 feet with rolling walker (improved from 107 feet with rolling walker); Timed Up and Go: 58.2 seconds with rolling walker (improved from to be assessed). ?? He presents with the below listed impairments. He would benefit from skilled intensive inpatient rehabilitation services at this time in order to further improve upon the below listed impairments andprepare for return to home. Factors in Goal Achievement: Facilitating Factors: Use of compensatory strategies, Improved functional mobility and Improved function Barriers: ROM limitations, Balance deficits, Diminished endurance, Strength limitations, Decreased safety awareness, Impaired skin integrity, Decreased patient understanding and Cognitive deficits Date Last Assessed: 01/24/2020 DME Recommendations Common Therapy DME: Walker(Currently owns) CARE Score Mario: 6: Independent. [place] provides no assistance with tasks. A device may or may not have been used. 5: Set-up or clean-up assistance. [place] sets up or cleans up, but does not assist with tasks. [place] may have assisted prior to or following the activity. 4: Supervision or touching assistance. [place] provides verbal cues or touching/steadying or contactguard assistance. Assistance may be provided throughout the activity or intermittently. 3: Partial/moderate assistance. [place] does less than half the effort. [place] lifts, holds, or supports trunk or limbs, but provides less than half the effort. 2: Substantial/maximal assistance. [place] does more than half the effort. [place] lifts or holds trunk or limbs, and provides more than half the effort. 1: Dependent. [place] does all of the effort, or the assistance of two or more helpers is required for the patient to complete the activity. -: Inconsistent or incomplete documentation Activity not attempted values: 7: Patient refused 9: Not applicable - Not attempted and the patient did not perform this activity prior to the current illness, exacerbation, or injury. 10: Not attempted due to environmental limitations (e.g., lack of equipment, weather constraints) 88: Not attempted due to medical condition or safety concerns Senior Living Goals: Goal Status on Admission Current Status Car Transfer LTG: Supervision or touching assistance(Pt to perform car transfer with LRAD and distant supervision.) Car Transfer - CARE Score: 3 (01/21/201439 : Kylie Sanchez, PT) Car Transfer -CARE Score: 3 (01/24/201447) Walk 10 Feet - CARE Score: 4 (01/21/201439 : Kylie Sanchez, PT) Walk 10 Feet - CARE Score: 4 (01/24/201447) Walk 50 Feet with Two Turns - CARE Score: 4 (01/21/201439 : Kylie Sanchez, PT) Walk 50 Feet with Two Turns - CARE Score: 4 (01/24/201447) Walk 150 Feet LTG: Independent(Pt to ambulate up to 150 feet with LRAD and Mod I) Walk 150 Feet - CARE Score: 88 (01/21/201439 : Kylie Sanchez PT) Walk 150 Feet - CARE Score: 4 (01/24/201447) Walking 10 Feet on Uneven Surfaces - CARE Score: 4 (01/21/201439 : Kylie A Sanchez, PT) Walking 10 Feet on Uneven Surfaces - CARE Score: 4 (01/24/201447) 1 Step (Curb) - CARE Score: 3 (01/21/20 144 : Kylie Sanchez PT) 1 Step (Curb) - CARE Score: 4(01/24/201447) 4 Steps - CARE Score: 3 (01/21/201439 : Kylie Sanchez PT) 4 Steps - CARE Score: 4 (01/24/201447) 12 Steps LTG: Supervision or touching assistance(Pt to ascend/descend at least 12 steps at 6 incheseach with B HR and supervision to safely enter/exit the home with supervision of family.) 12 Steps - CARE Score: 88 (01/21/201439 : Kylie Sanchez PT) 12 Steps - CARE Score: 4 (01/24/201447) Picking Up Object - CARE Score: 88 (01/21/201439 : Kylie Sanchez PT) Picking Up Object - CAREScore: 4 (01/24/201447) Wheel 50 Feet with Two Turns - CARE Score: 3 (01/21/201439 : Kylie Sanchez PT) Wheel 50 Feet with Two Turns - CARE Score: 4 (01/24/201447) Wheel 150 Feet - CARE Score: 2 (01/21/201439 : Kylie Sanchez PT) Wheel 150 Feet - CARE Score:4 (01/24/201447) PT Other Dry Transfer Man Goals Most Recent Value Other PT Senior Living Goals Other Goals - Dry Transfer Man Dry Transfer Man 1, Dry Transfer Man 2 Filed on: 01/21/20201456 Other Dry Transfer Man Goal 1 Pt to perform all transfer mobility with LRAD and Mod I. Filed on: 01/21/20201456 Other Dry Transfer Man Goal 1 Status Established Filed on: 01/21/20201456 Other Dry Transfer Man Goal 2 Pt to perform 2MWT with a distance of at least 70 feet with LRAD. Filed on: 01/21/20201456 Other Dry Transfer Man Goal 2 Status Established Filed on: 01/21/20201456 Expected Achievement Date 02/04/20 Filed on: 01/21/20201456 PT Short Term Goal 1: Focus: Car Transfer Details: Pt to perform car transfer with close supervision throughout and maintain proper hip precautions. Expected Achievement Date: 01/31/2020 Goal Status: Partially Achieved PT Short Term Goal 2: Focus: Walking Details: Pt to ambulate up to 150 feet with LRAD and close supervision. (Met 01/24/20). Pt to ambulate up to 150 feet with LRAD and distant supervision over even and uneven surfaces. Expected Achievement Date: 01/31/2020 Status: Established PT Short Term Goal 3: Focus: Steps Details: Pt to ascend/descend at least 12 steps at 6 inches with B HR and close supervision. Expected Achievement Date: 01/31/2020 Status: Partially Achieved PT Short Term Goal 4: Focus: Wheelchair Management Details: Pt to propel wheelchair up to 150 feet with Min A. (Met 01/24/20). Pt to propel wheelchair up to 150 feet with Mod I. Expected Achievement Date: 01/31/2020 Goal Status: Established PT Short Term Goal 5: Details: Pt to perform TUG. (Met 01/24/20). Pt to perform TUG with a score of less than 45 seconds. Expected Achievement Date: 01/31/2020 Goal Status: Established KYLIE SANCHEZ PT 01/24/2020 * PT Treatment Note - Kylie Sanchez PT - 01/24/2020 1:00 PM CDT PT Treatment Patient Name: Ferdinand Rasmussen Patient Birthdate: 1945 Patient Subjective Report - Pt seated in wheelchair upon entry. Agreeable to therapy. Pain Assessment Pain Context: Therapy Assessment Prior to Treatment (01/24/20 1300) Pain Assessment: None/denies pain(Notes slightly sore throat since this morning) (01/24/20 1300) Overall Cognitive Status: Impairments impacting function Comment: Pt requires increased time to process instructions; increased cues to perform novel tasks. Surface: Even surface, Indoor and Uneven surface Assistive Device: RW Ambulation Level of Assistance: Close Supervision Distance (feet): 212 Gait Analysis: 1 x 161' with RW and close supervision throughout. Pt demonstrates decreased foot clearance, decreased stance time on L LE, small/faster shuffling gait, narrow DEONNA, and increased reliance on UE support for balance. Pt demonstrates no LOB throughout. Seated rest break upon completion. After seated rest break, pt performs 3 x TUG (see below for details). Ambulation over compliant foam mat: Pt performs with increased time to complete and varying CGA-close supervision throughout mobility. Pt demonstrates no physical LOB, however with minimal foot clearance during transition up onto mat. Pt requires seated rest break upon completion. 1 x 100' with picking up objects from floor (see below for details). Pt performs with similar levelof assistance and gait deviations as noted above. Pt also performs 1 x 6 Minute Walk Test/2 Minute Walk Test: Walks a total of 212 feet during this bout of ambulation prior to requiring seated rest break. See below for details: Rails: Bilateral Stairs Level of Assistance: Contact Guard Stairs Height of Step: 6-inch Stair Analysis: Up/down with non-reciprocal pattern and increased time to complete. Pt performs leading up with R LE and down leading with L LE and B HR support. Pt demonstrates no instances of LOB, and consistent CGA for safety. Seated rest break upon completion. Number of Steps: 12 Assistive Device: RW Curb Level of Assistance: Contact Guard and Close Supervision Curb Height: 6 inch Curb Comment: Performs a total of 4 reps up/down. Pt demonstrates with RW for UE support and increased time to complete overall. Pt demonstrates no noted LOB and is able to demonstrate proper step sequencing throughout. Seated rest break upon completion. Transfer to 1: Stand Transfer from 1: Wheelchair Technique 1: Sit to stand and Stand to sit Transfer Level of Assistance 1: Close Supervision Trials/Comments1: With UE support from armrests and increased time to complete. Pt performs with close supervision up/down and increased time to complete. Wheelchair Level of Assistance: Close Supervision Distance Traveled in Wheelchair (feet): 150 Wheelchair Type: Manual Wheelchair cushion: Pressure relieving Surface: Even surface and Indoor Propulsion Method: Bilateral upper extremity Wheelchair Propulsion Level of Assistance: Close Supervision Wheelchair Analysis: Pt performs with B UE's and no leg rests in order to utilize LE's to steer as needed. He is able to propel wheelchair up to 150' prior to requiring total assistance for all remaining wheelchair mobility. He requires greatly increased time to complete and initial verbal cues forhand placement for proper sequencing and propulsion. Pt requires increased cues for sequencing on turns, however after initial cues, pt is able to perform with close supervision throughout. Therapeutic Activities and Neuromuscular Re-education: PICKING UP OBJECT FROM FLOOR: - Pt performs blocked practice of picking up objects from floor with use of RW for UE support and fuse cup expander in order to brain picker objects from floor while maintaining hip precautions. Pt performs with consistent close supervision and greatly increased time to complete. Pt performs dynamic balance with reaching outside DEONNA, backing up in space and turning in space in order to access objects surroundedby nearby obstacles. Pt performs a total of 5 reps with close supervision throughout and no noted LOB. Seated rest break upon completion. Were respiratory Interventions provided?: No Special Test and Outcome Measures: Timed Up and Go (TUG), 2 Minute walk test and 6 Minute walk test 01/24/20 1300 Timed Up and Go (TUG) Trial 1 (in seconds) 60.05 (With RW and close supervision) Trial 2 (in seconds) 56.29 Trial 3 (in seconds) 58.31 Average of three trials 58.22 01/24/20 1400 2 Minute Walk Test Performed 2 Minute Walk Test? Yes Distance Walked (Feet) 98 Feet (With RW and close supervision. ) 6 Minute Walk Test Performed 6 Minute Walk Test? Yes Distance Walked (Feet) 212 Feet (with RW and close supervision) PT Treatment Outcomes:: Patient is progressing toward STG, Patient tolerated treatment well, Safetydevice reapplied, Cues needed for safety, Improved balance and coordination, Improved ambulation performance, Improved transfer ability noted and Improving overall functional endurance noted PT Summary:: Patient remained up sitting in chair at end of session with pelvic positioning belt on, chair alarm in place, call light and phone within reach. Pt would benefit from continued skilled PT services at this time in order to further improve upon the above listed impairments and to maximize functional strength and mobility at this time in order to prepare for safe discharge. PT Summary Plan of Care: Continue with current plan of care Pain Evaluation and Follow-up Pain Reassessment: No pain (01/24/20 1433) Nursing notified of patient's pain assessment: Not indicated - pain score 2 or less (01/24/20 1433) Therapy Minutes Individual Concurrent Co-Treat Time In : 1300 Time Out: 1433 Total Time with Patient (Min): 93 min Missed Minutes : 3 KYLIE SANCHEZ, PT 01/24/2020 * Plan of Care - Estrella Ford RN - 01/24/2020 11:56 AM CDT Problem: Infection Goal: Absence of infection and prevention of transmission during hospitalization Outcome: Progressing Problem: Fall Safety Goal: Free from fall injury Outcome: Progressing Problem: Knowledge Deficit Goal: Patient and/or family demonstrate readiness to learn Outcome: Progressing Goal: Patient and/or family verbalizes understanding of education, and/or performs desired skill Outcome: Progressing Problem: Discharge Planning Goal: Discharge to home or other facility with appropriate resources Outcome: Progressing Goal: 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 in role Outcome: Progressing Problem: Delirium Goal: Prevent and Manage Delirium Outcome: Progressing Problem: Knowledge Deficit Goal: Patient/family/caregiver demonstrates understanding of disease process, treatment plan, medications, and discharge instructions Outcome: Progressing Problem: Potential for Compromised Skin Integrity Goal: Skin integrity is maintained or improved Outcome: Progressing Goal: Nutritional status is improving Outcome: Progressing Problem: Urinary Incontinence Goal: Perineal skin integrity is maintained or improved Outcome: Progressing Problem: Bowel Incontinence Goal: Perineal Skin Integrity is Maintained or Improved Outcome: Progressing Problem: Pain Goal: Patient's Pain/Discomfort is Manageable Outcome: Progressing * PT Group Treatment - Emelina Grant PT - 01/24/2020 11:15 AM CDT Physical Therapy Group Treatment Patient Name: Ferdinand Rasmussen Patient Birthdate: 1945 Patient Subjective Report - Pt sitting up in wheelchair, agreeable to participation in group therapy session. Pain Assessment Pain Context: Therapy Assessment Prior to Treatment (01/24/201114) Pain Assessment: None/denies pain (01/24/201114) Pain Score: 0 - No pain (01/24/201114) Name of Group Session:: Dynamic Balance and Gait Group and Lower Extremity Therex Group Patient's Indvidualized Goals for Group Session:: Decrease falls & fear of falling, Enhance sitting or standing balance, Facilitate discharge to the community, Improve gait in community setting, Improve motor initating skills, Improve quality of movements, Improve seated/standing weight shifting and Lower extremity strength and endurance Justification for Group Intervention: To provide psychosocial support and improve participation in overall rehab program, Refine quality of motor skills with increased challenges of a social setting,Facilitate learning through peer interactions, Provide additional environmental stimulation to challenge skill development, Prepare for discharge to community with motor performance in social settingand Motor skills training in structured social setting Skilled Services Provided: Activity was graded or modified to meet the patient's needs Education provided:: Educated on ambulation, tolerance to positional changes, LE strengthening, dynamic standing balance, transfers, and safety in group setting. Patients Response to Treatment:: He expressed positive feelings for having worked in group setting,supported other group members, and tolerated session well. Returned to room with seat belt and chair alarm on. Progress Towards Goals:: Goals met for session, Improved strength demonstrated with repeated trails, Improved transfer skills during group activity, Safety techniques practiced and improvements noted, Strategies effectively used and Tolerated treatment with modifications to task as needed Group Note Narrative Summary:: Mr. Rasmussen attended group session this AM designed to improve ambulation, dynamic standing balance, navigation of obstacles, and functional mobility as well as promote the benefits of group interaction such as increased motivation and psychological wellbeing. Ambulates 150 feet with WW and CGA-SBA for safety- limited in distance by generalized fatigue. Cues throughoutfor maintaining upright posture and close proximity to walker, as pt has tendency to lean far fwd with fatigue. Pt additionally performs the following dynamic standing balance and coordination tasks with WW for carryover to improved safety and navigation of obstacles encountered in community and home environments: 4 cone tap with alternating BLE x 20 reps with CGA, alvarez bag toss with 7 bags x 2 reps in standing with SBA, and weaving in/out of 7 cones placed closely together with CGA and increased cues for sequencing and maintaining close proximity to walker during turning. Finish session with the following BLE strengthening/ROM exercises in standing with WW for carryover to improved musclestrength needed for transfers and mobility, x 15 reps each: marches, fwd hip flex, mini squats. Patient expressed positive feelings for having worked in group setting. Pt on RA throughout and tolerated treatment session well. Patient benefited from participation in the ambulation group treatments as indicated by improved functional endurance and balance. Plan for continued interventions:: Continue with current plan of care Pain Evaluation and Follow-up Pain Reassessment: No pain (01/24/20 1200) Nursing notified of patient's pain assessment: Not indicated - pain score 2 or less (01/24/20 1200) Time In : 1115 Time Out: 1200 Breaks/Pauses (Min): 0 mins Time calculation (min): 45 min Missed Minutes : 0 EMELINA GRANT PT 01/24/2020 * OT Treatment Note - Carlos Caba OT - 01/24/2020 8:15 AM CDT Occupational Therapy Treatment Patient Name: Ferdinand Rasmussen Patient Birthdate: 1945 Pt seated EOB upon therapist arrival, agreeable for OT session. Pain Assessment Pain Context: Therapy Assessment Prior to Treatment (01/24/20814) Pain Assessment: None/denies pain (01/24/20814) Vital Signs Pulse: 84 (01/24/20857) Heart Rate Source: Monitor (01/24/20857) BP: 114/53 (01/24/20857) MAP (mmHg): 73.33 (01/24/20857) BP Location: Left arm (01/24/20857) BP Method: Automatic (01/24/20857) Patient Position: Sitting (01/24/20857) Oxygen Context: Activity (01/24/20857) SpO2: 100 % (01/24/20857) O2 Device: None (Room air) (01/24/20857) ADL Status: Grooming Comments: Pt ambulates to and from standing at the sink. Pt participates in grooming training while standing at the sink to address standing tolerance and balance deficits. Pt able to stand and complete grooming with minimal verbal cues to initiate and for safety. Supervision provided withuse of RW due to impaired balance. Dressing Lower Body: Minimal Assistance Lower Body Dressing Where Assessed: Sitting edge of bed and Standing Lower Body Dressing Adaptive Equipment: Manager Category and Dressing stick Lower Body Dressing Comments: Pt participates in LB dressing training seated/standing EOB with use of fuse cup expander and dressing stick. Pt able to doff LB items with incidental assist for effective use of dressing stick/reminders for effective use. Pt able to thread R/L LE through pants/underwear with increased time, verbal cues and min assist for threading. Pt able to manage clothes over hips with steadying assist for balance/cues for safety. Other Lower Body Dressings: Yes Sock Level of Assistance: Close Supervision and Contact Guard (Pt demos good carryover with training with use of sockaide/dressing stick to don/doff socks. Pt requires incidental assist for effectiveuse of sockaide. Pt able to don sock following proper setup with SBA and significantly increased time. ) Bed, Chair, Wheelchair Transfer: Contact Guard and Close Supervision Bed/Chair Transfer to: Wheelchair Bed/Chair Transfer from: Bed Bed/Chair Transfer Technique: Stand to sit, Sit to stand and Ambulatory Assistive Devices Used: Walker Bed/Chair Transfer Comments: Intermittent CGA provided for impaired balance/safety awareness. Pt requires verbal cues for safety. Pt progressing towards SBA. ADL Training: ADL Training Narrative: Pt able to recall 1/3 hip precautions this date. Pt provided with reminder to use visual cue for increased recall. Pt reeducated on posterior hip precaution to improve safety/independence during ADL's. Treatment, Outcomes and Plan: OT Narrative:: Pt participates well in therapy this date demonstrating improved independence with lower body dressing and use of adaptive equipment. Patient remained up sitting in chair at end of session with pelvic positioning belt on, chair alarm in place, call light and phone within reach. OT Treatment Outcomes:: Safety device reapplied and Patient tolerated treatment well OT Summary Plan of Care: Continue with current plan of care Pain Evaluation and Follow-up Pain Reassessment: No pain (01/24/20 0858) Nursing notified of patient's pain assessment: Not indicated - pain score 2 or less (01/24/20 0858) Therapy Minutes Individual Concurrent Co-Treat Time In : 0815 Time Out: 0900 Total Time with Patient (Min): 45 min Missed Minutes : 0 CARLOS CABA OT 01/24/2020 * OT Treatment Note - Kayli Hernandez OT - 01/23/2020 10:33 AM CDT Occupational Therapy Treatment Patient Name: Ferdinand Rasmussen Patient Birthdate: 1945 Patient Subjective Report - He does not speak much unless prompted with this health technical writer. Does tell family over the phone that his left leg was really painful yesterday. Today denies pain. Pain Assessment Pain Context: Therapy Assessment Prior to Treatment (01/23/201032) Pain Assessment: None/denies pain (01/23/201032) ADL Status: Grooming: Minimal Verbal Cues Grooming Where Assessed: Standing at sink Grooming Comments: Verbal cues to locate and use soap, standing, performed washing hands only this session, declines other tasks Dressing Lower Body: Minimal Assistance Lower Body Dressing Where Assessed: Sitting in chair Lower Body Dressing Adaptive Equipment: Manager Category, Sock aide and Dressing stick Lower Body Dressing Comments: Given verbal cues and demonstration, able to doff socks iwth dressingstick, and to pickup the socks with fuse cup expander Able to don socks with sock aid with min A, as he got his left sock rolled down and was attempting to bend to pull it up despite cues, would not use the fuse cup expander as cued to perform. Therapist performed task to prevent injury with bending. Able use fuse cup expander with vc's and demo to thread both legs into the pants, and to doff needed maximal vc's as he continued to attmept to bend over OT Therapeutic Activity: Therapeutic Activity: Ambulated from WC to sink side and back about 24 feet in total with walker and gait belt, with SBA to min A as he tends to stay far back from the walker. Needs cues to bring himself up into the walker for safety. Patient Education: Reviewed L LE posterior hip precautions at the beginning of the session. He is able to state 2 of 3 precautions with extended time and prompting. Unable to problem solving hip precautions with more dynamic movement scenarios, just as bending when standing, and twisting in the walker to turn. Does not demonstrate carryover of posterior hip precautions during functional tasks for dressing, particularly the bending. Pain Evaluation and Follow-up Pain Reassessment: No pain (01/23/201032) Nursing notified of patient's pain assessment: Not indicated - pain score 2 or less (01/23/201032) Therapy Minutes Individual Concurrent Co-Treat Time In : 1033 Time Out: 1119 Breaks/Pauses (Min): 0 mins Total Time with Patient (Min): 46 min Missed Minutes : 1 KAYLI HERNANDEZ, OT 01/23/2020 * Plan of Care - Butch Thompson RN - 01/23/2020 9:29 AM CDT Problem: Infection Goal: Absence of infection and prevention of transmission during hospitalization Outcome: Progressing Problem: Fall Safety Goal: Free from fall injury Outcome: Progressing Problem: Knowledge Deficit Goal: Patient and/or family demonstrate readiness to learn Outcome: Progressing Goal: Patient and/or family verbalizes understanding of education, and/or performs desired skill Outcome: Progressing Problem: Discharge Planning Goal: Discharge to home or other facility with appropriate resources Outcome: Progressing Goal: 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 in role Outcome: Progressing Problem: Delirium Goal: Prevent and Manage Delirium Outcome: Progressing Problem: Knowledge Deficit Goal: Patient/family/caregiver demonstrates understanding of disease process, treatment plan, medications, and discharge instructions Outcome: Progressing Problem: Potential for Compromised Skin Integrity Goal: Skin integrity is maintained or improved Outcome: Progressing Goal: Nutritional status is improving Outcome: Progressing Problem: Urinary Incontinence Goal: Perineal skin integrity is maintained or improved Outcome: Progressing Problem: Bowel Incontinence Goal: Perineal Skin Integrity is Maintained or Improved Outcome: Progressing Problem: Pain Goal: Patient's Pain/Discomfort is Manageable Outcome: Progressing * PT Treatment Note - Cam Brandt, PT - 01/23/2020 7:30 AM CDT PT Treatment Patient Name: Ferdinand Rasmussen Patient Birthdate: 1945 Patient Subjective Report - Patient reports he did not sleep well last night due to pain, but this morning his pain feels better and he is agreeable to therapy today. Pain Assessment Pain Context: Therapy Assessment During Treatment (01/23/20814) Pain Assessment: None/denies pain (01/23/20729) Vital Signs Pulse: 76 (01/23/20 0730) Heart Rate Source: Monitor (01/23/20729) BP: 112/58 (01/23/20729) MAP (mmHg): 76 (01/23/20729) BP Location: Left arm (01/23/20729) BP Method: Automatic (01/23/20729) Patient Position: Sitting (01/23/20729) Oxygen Context: Resting (01/23/20729) SpO2: 98 % (01/23/20729) Overall Cognitive Status: Impairments impacting function Alert: Yes Oriented to Personal Circumstances: Yes Oriented to Place: Yes Oriented to Time: No (narrative) (Reports year is 1918) Able to Follow 1 Step Commands: Yes Able to Follow 2 Step Commands: Yes Bed Mobility: Short sit to - from supine and Performed on bed Bed Mobility Level of Assistance: Contact Guard Bed Mobility Comment: Pt performs bed mobility from supine to sit EOB with CGA within posterior hipprecautions. Surface: Smooth surface, Even surface and Indoor Assistive Device: RW Ambulation Level of Assistance: Contact Guard Distance (feet): 200 Gait Analysis: Pt ambulated 200' with RW and CGA for safety. Noted gait deviations include forward flexed posture, decreased step length bilaterally with shuffling, and decreased joao. Pt requiredseated rest break after 200' due to fatigue and mild soreness in the left leg. Increased time required to complete task secondary to reduced gait speed. Transfer to 1: Wheelchair Transfer from 1: Bed Technique 1: Sit to stand and Stand to sit Transfer Level of Assistance 1: Contact Guard Trials/Comments1: Pt performs sit to/from stands with CGA and RW. Transfer to 2: Sit and Stand Transfer from 2: Sit and Stand Technique 2: Sit to stand and Stand to sit Transfer Level of Assistance 2: Contact Guard Trials/Comments 2: Pt performed sit/ stand 4x during session using RW for support wuth verbal cueing for hand placements onto WC. Wheelchair Level of Assistance: Minimal Assistance Distance Traveled in Wheelchair (feet): 85 Wheelchair Type: Manual Wheelchair cushion: Standard Wheelchair parts management: No Surface: Indoor, Smooth surfaces and Even surface Propulsion Method: Bilateral upper extremity Wheelchair Propulsion Level of Assistance: Minimal Assistance Wheelchair Analysis: Pt propels WC 85' this date with min assist for navigation and propulsion through crowded hallway. Distance limited secondary to UE fatigue. Activity was able to performed twice with second distance equaling 65'. Therapeutic Activities and Neuromuscular Re-education: Activities and re- education performed to increase functional mobility and safety during transfers. Transfer training: sit to stand blocked practice x5 with CGA and RW Standing balance: static standing balance with UE reaching balloon tap 2 x20 with single TRAVELING ACCOUNTANT on walker to no TRAVELING ACCOUNTANT on walker. CGA required, R and L UE used with cueing. PT Treatment Outcomes:: Compensatory strategies effectively used, Cues needed for safety, Gait deviations reduced, Goals met for this session, Improved safety awareness, Improved ambulation performance, Improved balance and coordination, Improved transfer ability noted, Patient is progressing toward STG, Patient tolerated treatment well, Safety device reapplied, Increasing strength, Increased ROMand Improving overall functional endurance noted PT Summary:: Treatment focused on LE strengthening, gait, transfers, and static balance. Pt required seated rest break after 200' ambulation with RW secondary to fatigue. Pt demonstrated improved standing endurance this date. Pt would continue to benefit from inpatient rehabilitation in order to improve deficits of LE weakness, endurance, and decreased mobility. At end of session, pt was returnedto room with call button in reach with WC seat belt on and alarm activated and RN notified. PT Summary Plan of Care: Continue with current plan of care Pain Evaluation and Follow-up Response to Therapy Interventions: Improved activity tolerance, Improved mobility (01/23/20 08) Pain Reassessment: Other (Comment)(Pt reported soreness but no pain was able to be given.) (01/23/20814) Nursing notified of patient's pain assessment: Not indicated - pain score 2 or less (01/23/20 0815) Therapy Minutes Individual Concurrent Co-Treat Time In : 0730 Time Out: 0815 Total Time with Patient (Min): 45 min CAM TORREZ, PT 01/23/2020 * Plan of Care - Tara Alberts RD - 01/22/2020 2:16 PM CDT Problem: Increased Nutrient Needs Description: Related to: Increased demand for nutrient (wound healing, chronic infection) As Evidenced By: hip arthroplasty Goal: Clinical Nutrition Goal Outcome: Progressing Flowsheets (Taken 01/22/2020 1402) Primary Goal: Adequate Meals and Snack/Oral Nutrition Supplement Intake Primary Goal Progress: New Primary Indicator/Monitor: po intake 50-100% Secondary Goal: Weight Maintenance Secondary Goal Progress: New Secondary Indicator/Monitor: avoid weight loss Intervention: Medical Nutrition Therapy Interventions Flowsheets (Taken 01/22/2020 1402) Meals and Snacks: General/healthful diet Supplements: (refuses supplements) -- Coordination of Nutrition Care: Continue to Monitor * OT Treatment Note - Christine Bettencourt I OT - 01/22/2020 1:29 PM CDT Occupational Therapy Treatment Patient Name: Ferdinand Rasmussen Patient Birthdate: 1945 Patient Subjective Report - Pt agreeable to therapy. Pain Assessment Pain Context: Therapy Assessment Prior to Treatment (01/22/20 1301) Pain Assessment: NRS 0-10 (01/22/20 1301) Pain Score: 0 - No pain (01/22/20 130) ADL Status: Wheelchair Mobility: Minimal Assistance and Moderate Verbal Cues Bed, Chair, Wheelchair Transfer: Minimal Assistance Bed/Chair Transfer to: Wheelchair, Sit and Stand Bed/Chair Transfer from: Wheelchair, Sit and Stand Bed/Chair Transfer Technique: Sit to stand Assistive Devices Used: Walker Bed/Chair Transfer Comments: Pt completes sit <> stand from w/c given min A at gait belt. Pt requires mod verbal cues during transfer to adhere to hip precautions and avoid flexing hip greater than 90 deg. Standing Tolerance Time (mins): 10 mins; 8 mins Activity: Assembling puzzle on tabletop Functional Standing Tolerance Comments: Pt maintains static standing while reaching forward and laterally to retrieve puzzle pieces x2 trials (10 mins, 8 mins). Pt requires unilateral UE support on tabletop for stability 2/2 decreased balance. Standing Assist: Contact Guard WHEELCHAIR MANAGEMENT: Distance Traveled in Wheelchair: 0-49 Wheelchair Type: Manual Wheelchair Level of Assistance: Minimal Assistance Surface: Even surface Propulsion Method: Bilateral upper extremity Comments: Pt uses BUE to self propel w/c from room > hallway then therapy gym > nurses' station. Pt requires min A and mod verbal cues to avoid environmental obstacles during propulsion. Pt observed to use inefficient, small UE movements during self propelling resulting in increased time for w/c mobility. OT Therapeutic Activity: Therapeutic Activity: ITEM RETRIEVAL: Pt uses long handled fuse cup expander to retrieve 5/5 items on floor during ambulation with FWW to target dynamic balance and functional reach. Pt requires CGA for balance and stability during ambulation. Pt requires min verbal cues to get close to item prior to retrieving with long handled fuse cup expander to prevent hip flexion and need for excessive forward reaching. Visual Perceptual: JIGSAW PUZZLE: Pt completes 24-piece large puzzle on tabletop in standing to target standing balance, activity tolerance, and visual perceptual skills. Pt requires mod-max verbal cues to correctly match and orient puzzle pieces based on similar shapes and colors. Pt requires intermittent min A to connect and rotate jigsaw pieces. Treatment, Outcomes and Plan: OT Narrative:: Pt participated well in session targeting activity tolerance, standing balance, endurance, and w/c mobility. Pt requires reminders throughout session to avoid excessive hip flexion past 90 deg during transfers and when reaching for items on floor. Pt will continue to benefit from skilled occupational therapy on an inpatient rehabilitation basis to focus on ADLs, functional transfers, endurance, and activity tolerance. OT Treatment Outcomes:: Safety device reapplied, Patient tolerated treatment well and Goals met forthis session OT Summary Plan of Care: Continue with current plan of care Pain Evaluation and Follow-up Pain Reassessment: No pain (01/22/20 1346) Nursing notified of patient's pain assessment: Not indicated - pain score 2 or less (01/22/20 1346) Therapy Minutes Individual Concurrent Co-Treat Time In : 1301 Time Out: 1346 Total Time with Patient (Min): 45 min Missed Minutes : 0 CHRISTINE BETTENCOURT OT 01/22/2020 * PT Treatment Note - Kenya Reyes PT - 01/22/2020 10:35 AM CDT PT Treatment Patient Name: Ferdinand Rasmussen Patient Birthdate: 1945 Patient Subjective Report - Pt is agreeable to PT Pain Assessment Pain Context: Therapy Assessment Prior to Treatment (01/22/20 1039) Pain Assessment: NRS 0-10 (01/22/20 1039) Pain Score: 0 - No pain (01/22/20 1039) Vital Signs Pulse: 75 (01/22/20 1039) Heart Rate Source: Monitor (09/26/20 1039) BP: 102/51 (01/22/201038) MAP (mmHg): 68 (01/22/201038) BP Location: Left arm (01/22/201038) BP Method: Automatic (01/22/201038) Patient Position: Sitting (01/22/201038) Oxygen Context: Resting (01/22/201038) SpO2: 100 % (01/22/201038) O2 Device: None (Room air) (01/22/201038) Overall Cognitive Status: Within Functional Limits Surface: Even surface, Indoor and Smooth surface Assistive Device: RW Ambulation Level of Assistance: Contact Guard Distance (feet): 150 Gait Analysis: Pt ambulates 150' and 80' with w/w and CGA. Pt ambulates with decreased step length, flexed forward posture, and decreased joao. Rails: Bilateral Assistive Device: No device Stairs Level of Assistance: Minimal Assistance Stairs Height of Step: 6-inch Stair Analysis: Pt negotiates 12 steps with 2 hand rails ascending with R, descending with L and requiring occasional cues for safety. Number of Steps: 12 Transfer to 1: Stand and Sit Transfer from 1: Sit and Stand Technique 1: Stand to sit and Sit to stand Transfer Level of Assistance 1: Contact Guard Trials/Comments1: Pt performs sit to and from stand with CGA and cues for safety. Wheelchair Level of Assistance: Contact Guard Distance Traveled in Wheelchair (feet): 50 Wheelchair Type: Manual Surface: Even surface, Indoor and Smooth surfaces Propulsion Method: Bilateral upper extremity and Bilateral lower extremity Wheelchair Propulsion Level of Assistance: Contact Guard Wheelchair Analysis: Pt performs w/c propulsion x 50' with increased time and B UE and LE use. Pt requires cues to avoid obstacles. Seated Position: Pt performs seated therapeutic exercise for LE strengthening and improved transferability. Exercises include: heel raises, toe raises, LAQ, and glute squeezes x 20. PT Treatment Outcomes:: Cues needed for safety, Gait deviations reduced, Improved ambulation performance, Increased ROM, Increasing strength, Patient is progressing toward STG, Patient tolerated treatment well and Safety device reapplied PT Summary:: Pt tolerates session well, however, requires occasional rest break due to fatigue. Treatment focus today includes ambulation, stair training, w/c mobility, transfer training, therapeuticactivities, strength training, and safety education. Pt is seated in w/c at the end of the session with alarms and safety devices replaced and all needs within reach. Pt will benefit from continued skilled PT to further improve upon the above listed impairments and to maximize functional strength and mobility at this time in order to prepare for safe discharge. PT Summary Plan of Care: Continue with current plan of care Pain Evaluation and Follow-up Response to Therapy Interventions: Improved activity tolerance, Improved mobility (01/22/20 1120) Pain Reassessment: No pain (01/22/20 1120) Nursing notified of patient's pain assessment: Not indicated - pain score 2 or less (01/22/20 1120) Therapy Minutes Individual Concurrent Co-Treat Time In : 1035 Time Out: 1120 Total Time with Patient (Min): 45 min Missed Minutes : 0 KENYA REYES, PT 01/22/2020 * Plan of Care - Butch Thompson RN - 01/22/2020 10:27 AM CDT Problem: Infection Goal: Absence of infection and prevention of transmission during hospitalization Outcome: Progressing Problem: Fall Safety Goal: Free from fall injury Outcome: Progressing Problem: Knowledge Deficit Goal: Patient and/or family demonstrate readiness to learn Outcome: Progressing Goal: Patient and/or family verbalizes understanding of education, and/or performs desired skill Outcome: Progressing Problem: Discharge Planning Goal: Discharge to home or other facility with appropriate resources Outcome: Progressing Goal: 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 in role Outcome: Progressing Problem: Delirium Goal: Prevent and Manage Delirium Outcome: Progressing Problem: Knowledge Deficit Goal: Patient/family/caregiver demonstrates understanding of disease process, treatment plan, medications, and discharge instructions Outcome: Progressing Problem: Potential for Compromised Skin Integrity Goal: Skin integrity is maintained or improved Outcome: Progressing Goal: Nutritional status is improving Outcome: Progressing Problem: Urinary Incontinence Goal: Perineal skin integrity is maintained or improved Outcome: Progressing Problem: Bowel Incontinence Goal: Perineal Skin Integrity is Maintained or Improved Outcome: Progressing Problem: Pain Goal: Patient's Pain/Discomfort is Manageable Outcome: Progressing * OT Treatment Note - Maritza Merida OT - 01/22/2020 9:00 AM CDT Occupational Therapy Treatment Patient Name: Ferdinand Rasmussen Patient Birthdate: 1945 Patient Subjective Report - Pt declined further mobility tasks post PT. Pain Assessment Pain Context: Post Intervention (01/22/20944) Pain Assessment: NRS 0-10 (01/22/20906) Pain Score: 0 - No pain (01/22/20906) OT Therapeutic Activity: Therapeutic Exercise: Pt participated in standing activities to improve standing endurance and dynamic balance for ADLs and transfers. Pt tolerated a total of 11 minutes standing with unilateral reach to complete task then requested seated rest break. Pt stood for an additional 4-5 minutes to complete task with stand by assistance for safety. Patient Education: Pt re-educated on total hip precautions and recommendations to extend left hip/leg forward when standing/sitting to further deter potential for bending past 90 degrees. Strength: Yes Strength Exercise: Pt participated in UE therex using 4lb dowel bar to improve upper body strength for ADLs and transfers. Pt completed overhead press x15 reps, chest press x15 reps, and bicep curls x15 reps (2# dumbbell) with mod cues for technique throughout exercises. Treatment, Outcomes and Plan: OT Narrative:: Patient remained up sitting in chair at end of session with pelvic positioning belt on, chair alarm in place, call light and phone within reach. Pt tolerated skilled OT session well this date. Pt presents with progressing standing endurance andbalance. Pt will benefit from further intensive occupational therapy to increase their independenceand safety with ADLs and transfers. OT Treatment Outcomes:: Patient tolerated treatment well and Patient is progressing toward STG(s) OT Summary Plan of Care: Continue with current plan of care Pain Evaluation and Follow-up Pain Reassessment: (Pt reported mild pain during standing tasks however subsided while seated.) (01/22/20944) Nursing notified of patient's pain assessment: Not indicated - pain score 2 or less (01/22/20944) Therapy Minutes Individual Concurrent Co-Treat Time In : 0900 Time Out: 944 Total Time with Patient (Min): 45 min Missed Minutes : 0 MARITZA MERIDA OT 01/22/2020 * PT Treatment Note - Gertrudis Dial, PT - 01/22/2020 8:30 AM CDT PT Treatment Patient Name: Ferdinand Rasmussen Patient Birthdate: 1945 Patient Subjective Report - Pt agreeable to therapy Pain Assessment Pain Context: Therapy Assessment Prior to Treatment (01/22/20814) Pain Assessment: NRS 0-10 (01/22/20814) Pain Score: 0 - No pain(pt denies pain) (01/22/20814) Bed Mobility: Short sit to - from supine and Performed on bed Bed Mobility Level of Assistance: Close Supervision (verbal cues to maintain hip precautions) Bed Mobility Comment: HoB elevated to approximately 25 degrees. Cues required to maintain hip precautions throughout the transfer. Surface: Even surface and Indoor Assistive Device: RW Ambulation Level of Assistance: Contact Guard Distance (feet): 200 Gait Analysis: Pt amb 2x200' with RW and CGA for safety. Gait deviations include: decreased joao, decreased B step length, decreased B step height, increased lateral sway, fwd lean. VC's for increased B step length and to stay close to RW. Demonstrates improved walking speed with second trial ofgait. Rails: Bilateral Stairs Level of Assistance: Contact Guard Stairs Height of Step: 6-inch Stair Analysis: Up/down 2x4 steps with B HR and CGA. relies heavily on handrails for support Number of Steps: 8 Transfer to 1: Wheelchair Transfer from 1: Bed Technique 1: Stand pivot Transfer Level of Assistance 1: Contact Guard Trials/Comments1: With RW Transfer to 2: Stand Transfer from 2: Sit Technique 2: Sit to stand Transfer Level of Assistance 2: Contact Guard Trials/Comments 2: VC's for hand placement during force production Transfer to 3: Wheelchair Transfer from 3: Stand Technique 3: Ambulatory Transfer Level of Assistance 3: Contact Guard Trials/Comments 3: With RW PT Treatment Outcomes:: Improved ambulation performance, Patient requires cueing to maintain precautions and Patient tolerated treatment well PT Summary:: Pt denies pain throughout session. Demonstrates increased gait distances and number ofsteps this date. Continues to require cues to maintain hip precautions. PT Summary Plan of Care: Continue with current plan of care Pain Evaluation and Follow-up Pain Reassessment: No pain(@900) (01/22/20 0815) Nursing notified of patient's pain assessment: Not indicated - pain score 2 or less (01/22/20 0815) Therapy Minutes Individual Concurrent Co-Treat Time In : 0815 Time Out: 0900 Breaks/Pauses (Min): 0 mins Total Time with Patient (Min): 45 min GERTRUDIS DIAL, PT 01/22/2020 * Plan of Care - Dolores Tristan RN - 01/22/2020 1:43 AM CDT Problem: Infection Goal: Absence of infection and prevention of transmission during hospitalization Outcome: Progressing Problem: Fall Safety Goal: Free from fall injury Outcome: Progressing Problem: Knowledge Deficit Goal: Patient and/or family demonstrate readiness to learn Outcome: Progressing Goal: Patient and/or family verbalizes understanding of education, and/or performs desired skill Outcome: Progressing Problem: Discharge Planning Goal: Discharge to home or other facility with appropriate resources Outcome: Progressing Goal: 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 in role Outcome: Progressing Problem: Delirium Goal: Prevent and Manage Delirium Outcome: Progressing Problem: Knowledge Deficit Goal: Patient/family/caregiver demonstrates understanding of disease process, treatment plan, medications, and discharge instructions Outcome: Progressing Problem: Potential for Compromised Skin Integrity Goal: Skin integrity is maintained or improved Outcome: Progressing Goal: Nutritional status is improving Outcome: Progressing Problem: Urinary Incontinence Goal: Perineal skin integrity is maintained or improved Outcome: Progressing Problem: Bowel Incontinence Goal: Perineal Skin Integrity is Maintained or Improved Outcome: Progressing Problem: Pain Goal: Patient's Pain/Discomfort is Manageable Outcome: Progressing * Individualized Overall Plan of Care - Mike Zamora MD - 01/21/2020 3:48 PM CDT Images from the original note were not included. INDIVIDUALIZED OVERALL PLAN OF CARE I have reviewed the admitting History and Physical examination on [facility] and monitored the patient's status and progress since the admission. Based on the patient's multi-disciplinary evaluations, deficits, and functional needs, my plan of care is inclusive of the following therapies and associated goals: Physical Therapy The following physical therapy plan of care is recommended for Mr. Rasmussen PT Plan of Care & Recommendations (since 01/11/2020) Evaluation Summary: Mr. Ferdinand Rasmussen is a 74 year old male with a primary problem of osteoarthritis. (Left total hip arthroplasty per preadmission screening). 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 Of note: patient demonstrates increased difficulty with recall of subjective intake. HOME SITUATION: lives at home with nephew (works most of the day). Approximately 6 steps to enter with bilateral handrail support. ASSISTANCE AVAILABLE UPON RETURN TO HOME: he notes that his nephew is gone working throughout the day. He also notes that he has someone that comes in and works for him, about 2 hours every day and serves him lunch CURRENTLY OWNED DME: cane and rolling walker PRIOR LEVEL OF FUNCTION: he notes that he would walk around the house with rolling walker and no assistance at prior level. He notes that he would stay in the home. His current functional mobility is as follows. TRANSFERS: Sit to and from stand with contact guard assistance using rolling walker. Stand pivot transfer with contact guard assistance using rolling walker. Car transfer with minimal assistance. GAIT: Ambulates up to 107 feet with rolling walker (prior level of function) and contact guard assistance. Ambulates across uneven surface with rolling walker and contact guard assistance. ELEVATIONS Ascends/descends 6 steps at 6 inches each with bilateral handrails and minimal assistance. Ascends/descends 6 inch curb step (see above) WHEELCHAIR ASSESSMENT: propels manual wheelchair up to 75 feet with minimal assistance prior to requiring total assistance for all remaining wheelchair mobility. OBJECT LIFE SCIENCES MANAGER: Picks up object from the floor with unsafe to perform at this time secondary to hip precautions. Standardized Assessment: 2 Minute Walk Test: 45 feet with rolling walker; 6 Minute Walk Test: 107 feet with rolling walker He presents with the below listed impairments. Due to his previous medical history as well as his current level of function, he has good rehab potential. He would benefit from skilled intensive inpatient rehabilitation services at this time in order to further improve upon the below listed impairments and prepare for return to home. Problem List: Decreased cognition; Decreased endurance; Decreased independence with foundational gross motor skills; Decreased mobility; Decreased range of motion; Decreased skin integrity; Impaired balance; Impaired elevation ability; Impaired judgement; Pain; Reluctance to stand and weight bear through lower extremities; Decreased coordination; Decreased postural alignment in sitting/standing; Decreased safety awareness; Decreased strength; Impaired ambulation ability; Impaired transfer ability; Impaired wheelchair management; Precautions Limit Function Additional Information: PREVIOUS MEDICAL HISTORY/COMORBIDITY LIST: Debility, anemia of chronic renal failure on dialysis, chronic kidney disease stage 4, essential hypertension, hyperkalemia, hypervolemia, malignant neoplasm of prostate, moderate malnutrition, hyperlipidemia, retention of urine, diastolic dysfunction, seroma, abnormality of gait, toxic metabolic encephalopathy, metabolic acidosis, latent autoimmune diabetes mellitus in adult, hyperglycemia. Posterior Hip Precautions: L LE PT to provide the following services: Aerobic/Endurance conditioning; Balance/proprioceptive training; Education - patient/family; Elevation training; Gait training; Therapeutic activities; Wheelchair safety and mobility training; Adaptive equipment/DME prescription and application; Body mechanics/ergonomics; Fall prevention; Home Exercise Program (HEP) prescription; Neuromuscular re-education; Therapeutic exercise; Wound/integumentary care Frequency: 45-90 minutes 5 out of 7 days Responsible Physical Therapist: Kylie Sanchez, PT Mr. Rasmussen will achieve the following: Senior Living Goals: Car Transfer LTG: Supervision or touching assistance(Pt to perform car transfer with LRAD and distant supervision.) Walk 150 Feet LTG: Independent(Pt to ambulate up to 150 feet with LRAD and Mod I) 12 Steps LTG: Supervision or touching assistance(Pt to ascend/descend at least 12 steps at 6 incheseach with B HR and supervision to safely enter/exit the home with supervision of family.) PT Other Dry Transfer Man Goals Most Recent Value Other PT Dry Transfer Man Goals Other Goals - Senior Living Senior Living 1, Dry Transfer Man 2 Filed on: 01/21/2020 2176 Other Senior Living Goal 1 Pt to perform all transfer mobility with LRAD and Mod I. Filed on: 01/21/2020 6423 Other Dry Transfer Man Goal 1 Status Established Filed on: 01/21/20201456 Other Senior Living Goal 2 Pt to perform 2MWT with a distance of at least 70 feet with LRAD. Filed on: 01/21/20201456 Other Senior Living Goal 2 Status Established Filed on: 01/21/20201456 Expected Achievement Date 02/04/20 Filed on: 01/21/20201456 Occupational Therapy: The following occupational therapy plan of care is recommended for Mr. Rasmussen: OT Plan of Care & Recommendations (since 01/11/2020) Evaluation Summary: Ferdinand Rasmussen presents as 74 y.o. y/o male s/p L THR with a history of ESRD on dialysis, HTN, dialysis, DM, CVA and A-Fib. He was independent with ADL's prior to admission however required assist with all IADL's from family. He currently presents with moderate deficits limiting independence with ADLs and transfers. Mr. Rasmussen presents with impaired endurance, impaired LLE strength, impaired functional reach due to hip precautions, impaired cognition and pain limiting independence with self-care. PRECAUTIONS INCLUDE: Posterior hip precautions. Ferdinand Rasmussen demonstrates good potential to improve in rehab. He will receive 45-90 minute of intense occupational therapy in individual or group setting as appropriate 5 days per week to increase independence for safe d/c to least restrictive environment. Problem List: Activity Tolerance; Cognitive deficits; Leisure skill; Mobility; Visual deficits; Decreased functional endurance; Decreased functional status in ADL's; Impaired balance; Decreased transfer status; Decreased upper body strength; Impaired cognitive skills Additional Information: Patient remained up sitting in chair at end of session with pelvic positioning belt on, chair alarm in place, call light and phone within reach. OT to provide the following services: ADL and Transfer Training; Neuromusculature Re-education; UE Therex; Manual Therapy Techniques as Appropriate; Cognitive Retraining; Balance Training; Home Safety and Modification Education; Energy Conservation and Activity Modifications; Functional Endurance Training; Assistive Technology Education and Training; Adaptive Equipment/DME Education; Wheelchair Safety and Mobility Training; Positioning; Modalities to prepare for functional training; Home Evaluation as needed; Community Reintegration as needed prior to discharge; Patient/Family Education and Training; OT IADLS (homemaking skills, med. mgmt, meal prep,etc.) Frequency: 45-90 minutes 5 out of 7 days Responsible Occupational Therapist: Carlos Caba OTR/L Mr. Rasmussen will achieve the following: Senior Living Goals: Eating LTG: Independent Oral Hygiene LTG: Independent Toileting Hygiene LTG: Independent Shower/Bathe Self LTG: Supervision or touching assistance Upper Body Dressing LTG: Independent Lower Body Dressing LTG: Supervision or touching assistance Chair/[id number] Transfer LTG: Independent Toilet Transfer LTG: Independent Additionally, the patient will receive 24 hour rehabilitation nursing with the following goals: Care Plan Problems/Goals Progressing (10) Absence of infection and prevention of transmission during hospitalization (Infection) Disciplines: Nurse, Lion Tamer/RN Expected end: - Outcome: Progressing By Cynthia Fredreick RN on 01/21/201223 Free from fall injury (Fall Safety) Disciplines: Interdisciplinary Expected end: - Outcome: Progressing By Cynthia Frederick RN on 01/21/201223 Patient and/or family demonstrate readiness to learn (Knowledge Deficit) Disciplines: Nurse Lion Tamer/RN Expected end: - Outcome: Progressing By Cynthia Frederick RN on 01/21/201223 Patient and/or family verbalizes understanding of education, and/or performs desired skill (Knowledge Deficit) Disciplines: Nurse Lion Tamer/RN Expected end: - Outcome: Progressing By Cynthia Frederick RN on 01/21/201223 Discharge to home or other facility with appropriate resources (Discharge Planning) Disciplines: Nurse Lion Tamer/RN Expected end: - Outcome: Progressing By Cynthia Frederick RN on 01/21/201223 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 in role (Discharge Planning) Disciplines: Nurse Lion Tamer/RN Expected end: - Outcome: Progressing By Cynthia Frederick RN on 01/21/201223 Prevent and Manage Delirium (Delirium) Disciplines: Nurse Lion Tamer/RN Expected end: - Outcome: Progressing By Cynthia Frederick RN on 01/21/201223 Skin integrity is maintained or improved (Potential for Compromised Skin Integrity) Disciplines: Interdisciplinary Expected end: - Outcome: Progressing By Cynthia Frederick RN on 01/21/201223 Nutritional status is improving (Potential for Compromised Skin Integrity) Disciplines: Interdisciplinary Expected end: - Outcome: Progressing By Cynthia Frederick RN on 01/21/201223 Patient's Pain/Discomfort is Manageable (Pain) Disciplines: Interdisciplinary Expected end: - Outcome: Progressing By Cynthia Frederick RN on 01/21/20 1224 Overall, I expect the patient will stay at our facility until approximately 02/03/2020, with an anticipated discharge destination of Patients own home and a tentative discharge plan of Home with home health. Duration for therapy services would last until patient's discharge date unless new orders state otherwise. The patient's overall plan of care and current status continue to justify the patient's hospital inpatient status. I plan to monitor the patient's health and functional status daily, to assure that there is continuing benefit from our care. The patient's progress towards goals and treatment will also be monitoredon an ongoing basis during team conferences. The patient has a good prognosis for benefiting from this program and returning to home and community. MIKE ZAMORA MD 01/21/2020 3:48 PM CDT * Post Admission Assessment - Mike Zamora MD - 01/21/2020 1:29 PM CDT Post Admission Assessment: I have had the opportunity to examine the patient within 24 hours of admission and have reviewed the pre-admission assessment and find it consistent with my examination andevaluation of the patient. I confirm that this patient requires admission and treatment in this inpatient rehabilitation hospital, needs intense interdisciplinary rehabilitation care under my direction and is expected to achieve meaningful goals within a reasonable period of time that are consistent with the planned discharge disposition. We will provide comprehensive inpatient rehabilitation, which may include PT and OT and supportive services to improve functional outcome of impaired mobility, ADLs, transfers, and self-care. MIKE ZAMORA MD * PT Initial Evaluation - Kylie Sanchez PT - 01/21/2020 10:32 AM CDT Physical Therapy Evaluation Patient Name: Ferdinand Rasmussen Patient Birthdate: 1945 Pain Assessment Pain Context: Therapy Assessment Prior to Treatment (01/21/20 1032) Pain Assessment: None/denies pain(it hurts when I move around) (01/21/20 1032) Vital Signs Pulse: 63 (01/21/20 1125) Heart Rate Source: Monitor (01/21/20 112) Resp: 16 (01/21/20 112) BP: 112/57 (01/21/20 1125) MAP (mmHg): 75.33 (01/21/20 1125) BP Location: Left arm (01/21/20 112) BP Method: Automatic (01/21/201124) Patient Position: Sitting (01/21/20 112) Oxygen Context: Sitting (01/21/201124) SpO2: 97 % (01/21/20 112) O2 Device: None (Room air) (01/21/201124) Prior Function Level of [place]: Independent with ambulation using an assistive device;Assist with IADLs(w/ use of a RW for mobility within the home, Nephew assists with all IADLs) (01/21/20 0743 : Carlos Caba OT) Lives With: Family(Nephew) (01/21/20 0743 : Carlos Caba OT) Receives Help From: Family (01/21/20 0743 : Carlos aCba OT) Vocational: Retired (01/21/20 0743 : Carlos Caba OT) Leisure: Hobbies-yes (Comment)([employer]) (01/21/20 0743 : Carlos Caba OT) Patient Subjective Report - Pt seated in wheelchair upon entry. Agreeable to therapy. Posture: Impaired Impaired Posture: Forward Head Is Edema Present: No Light Touch: No apparent deficits Sharp/Dull: No apparent deficits RLE Proprioception: Grossly intact LLE Proprioception: Grossly intact Coordination: Impaired Coordination and Movement Description: Other (comment) (Slightly delayed rapid alternating ankle DF/PF) Current Vision: Does not wear glasses Vision Assessment Required?: No Overall Cognitive Status: Impairments impacting function Alert: Yes Oriented to Personal Circumstances: Yes Oriented to Place: Yes Oriented to Time: No (narrative) (the 2001) Able to Follow 1 Step Commands: Yes Able to Follow 2 Step Commands: No (narrative) (Increased overall time to complete and initiate more complex instructions. ) Surface: Even surface, Indoor and Uneven surface Assistive Device: RW Ambulation Level of Assistance: Contact Guard Distance (feet): 107 Gait Analysis: 1 x 107' with RW and CGA and greatly increased time to complete (see 2MWT and 6MWT below). Pt demonstrates with decreased stance time on L LE and decreased joao, decreased foot clearance, increased reliance on RW for UE support. No noted LOB. Similar level of assistance noted during ambulation over uneven surfaces as well. Rails: Bilateral Stairs Level of Assistance: Contact Guard and Minimal Assistance Stairs Height of Step: 6-inch Stair Analysis: Up/down with non-reciprocal pattern leading up with R LE first and down with L LE first, anterior approach and varying CGA-Min A for force production and balance. Seated rest break upon completion of mobility. Number of Steps: 6 Transfer to 1: Stand Transfer from 1: Wheelchair Technique 1: Sit to stand and Stand to sit Transfer Level of Assistance 1: Minimal Assistance and Contact Guard Trials/Comments1: Sit to stand with Min A and greatly increased time to complete with no AD and useof UE support from armrests prior to mobility. With use of RW, able to perform with CGA and increased time to complete. Transfer to 2: Car Transfer from 2: Wheelchair Technique 2: Stand pivot Transfer Level of Assistance 2: Minimal Assistance and Minimal Verbal Cues Trials/Comments 2: Increased time to complete and CGA for safety during transfer portion, however requires Min A for LE management into/out of vehicle. Seated rest break upon completion. Transfer to 3: Wheelchair Transfer from 3: Stand Technique 3: Stand pivot Transfer Level of Assistance 3: Contact Guard and Minimal Verbal Cues Trials/Comments 3: With definite UE support and CGA throughout. Increased time to complete. Wheelchair Level of Assistance: Minimal Assistance Distance Traveled in Wheelchair (feet): 75 Wheelchair Type: Manual Wheelchair cushion: Pressure relieving Surface: Even surface and Indoor Propulsion Method: Bilateral upper extremity Wheelchair Propulsion Level of Assistance: Minimal Assistance Wheelchair Analysis: 1 x 75 feet with Min A. Pt propels with significantly decreased overall force production with B UE's and Min A for all steering. Pt requires total assistance for all remaining wheelchair mobility. Therapeutic Activities and Neuromuscular Re-education: PICKING UP OBJECT FROM FLOOR: Unsafe to perform at this time secondary to posterior hip precautions. Were respiratory Interventions provided?: No RLE Assesment: Within Functional Limits LLE Assessment: Exceptions to WFL (Grossly 3+ to 4- /5 MMT: limited by incereased discomfort) Special Test and Outcome Measures: 2 Minute walk test and 6 Minute walk test 01/21/20 1400 2 Minute Walk Test Performed 2 Minute Walk Test? Yes Distance Walked (Feet) 45 Feet (With RW and CGA) 6 Minute Walk Test Performed 6 Minute Walk Test? Yes Distance Walked (Feet) 107 Feet (With RW and CGA) Patient's and/or Caregiver's Goals: Goals (in their own words): To get back in shape and get my hip healed up so I can walk again without anyone helping me. Goals Generated By:: Patient generated response with cues Mobility Assessment: Car Transfer Assistance Needed: Adaptive equipment, Physical assistance, Verbal cues Physical Assistance Level: Less than 25% Comment: With Min A for LE management and verbal cues for safety. Car Transfer - CARE Score: 3 Walk 10 Feet Assistance Needed: Adaptive equipment, Incidental touching Physical Assistance Level: No physical assistance Comment: Ambulates up to 107 feet with RW and CGA Walk 10 Feet - CARE Score: 4 Walk 50 Feet with Two Turns Assistance Needed: Adaptive equipment, Incidental touching Physical Assistance Level: No physical assistance Comment: Ambulates up to 107 feet with RW and CGA Walk 50 Feet with Two Turns - CARE Score: 4 Walk 150 Feet Comment: Ambulates up to 107 feet with RW and CGA Reason if not Attempted: Safety concerns Walk 150 Feet - CARE Score: 88 Walking 10 Feet on Uneven Surfaces Assistance Needed: Adaptive equipment, Incidental touching Physical Assistance Level: No physical assistance Comment: With RW and CGA Walking 10 Feet on Uneven Surfaces - CARE Score: 4 1 Step (Curb) Assistance Needed: Adaptive equipment, Physical assistance Physical Assistance Level: Less than 25% Comment: Up/down 6 steps at 6 inches each with B HR and Min A 1 Step (Curb) - CARE Score: 3 4 Steps Assistance Needed: Adaptive equipment, Physical assistance Physical Assistance Level: Less than 25% Comment: Up/down 6 steps at 6 inches each with B HR and Min A 4 Steps - CARE Score: 3 12 Steps Comment: Up/down 6 steps at 6 inches each with B HR and Min A Reason if not Attempted: Safety concerns 12 Steps - CARE Score: 88 Picking Up Object Comment: Unsafe to perform at this time secondary to hip precautions. Reason if not Attempted: Safety concerns Picking Up Object - CARE Score: 88 Wheel 50 Feet with Two Turns Assistance Needed: Adaptive equipment, Physical assistance Physical Assistance Level: Less than 25% Comment: Propels wheelchair up to 75 feet with Min A prior to requiring total assisance for all remaining wheelchair mobility. Wheel 50 Feet with Two Turns - CARE Score: 3 Type of Wheelchair/Scooter: Manual Wheel 150 Feet Assistance Needed: Adaptive equipment, Physical assistance Physical Assistance Level: 75% or more Comment: Propels wheelchair up to 75 feet with Min A prior to requiring total assisance for all remaining wheelchair mobility. Wheel 150 Feet - CARE Score: 2 Type of Wheelchair/Scooter: Manual CARE Score Mario: 6: Independent. [place] provides no assistance with tasks. A device may or may not have been used. 5: Set-up or clean-up assistance. [place] sets up or cleans up, but does not assist with tasks. [place] may have assisted prior to or following the activity. 4: Supervision or touching assistance. [place] provides verbal cues or touching/steadying or contactguard assistance. Assistance may be provided throughout the activity or intermittently. 3: Partial/moderate assistance. [place] does less than half the effort. [place] lifts, holds, or supports trunk or limbs, but provides less than half the effort. 2: Substantial/maximal assistance. [place] does more than half the effort. [place] lifts or holds trunk or limbs, and provides more than half the effort. 1: Dependent. [place] does all of the effort, or the assistance of two or more helpers is required for the patient to complete the activity. -: Inconsistent or incomplete documentation Activity not attempted values: 7: Patient refused 9: Not applicable - Not attempted and the patient did not perform this activity prior to the current illness, exacerbation, or injury. 10: Not attempted due to environmental limitations (e.g., lack of equipment, weather constraints) 88: Not attempted due to medical condition or safety concerns Dry Transfer Man Goals: Status on Admission Goal Car Transfer - CARE Score: 3 (01/21/20 144) Car Transfer LTG: Supervision or touching assistance(Pt to perform car transfer with LRAD and distant supervision.) (01/21/20 1450) Walk 10 Feet - CARE Score: 4 (01/21/20 144) Walk 50 Feet with Two Turns - CARE Score: 4 (01/21/20 144) Walk 150 Feet - CARE Score: 88 (01/21/201439) Walk 150 Feet LTG: Independent(Pt to ambulate up to 150 feet with LRAD and Mod I) (01/21/201449) Walking 10 Feet on Uneven Surfaces - CARE Score: 4 (01/21/201439) 1 Step (Curb) - CARE Score: 3 (01/21/201439) 4 Steps - CARE Score: 3 (01/21/201439) 12 Steps - CARE Score: 88 (01/21/201439) 12 Steps LTG: Supervision or touching assistance(Pt to ascend/descend at least 12 steps at 6 inches each with B HR and supervision to safely enter/exit the home with supervision of family.) (01/21/201449) Picking Up Object - CARE Score: 88 (01/21/201439) Wheel 50 Feet with Two Turns - CARE Score: 3 (01/21/201439) Wheel 150 Feet - CARE Score: 2 (01/21/201439) PT Other Senior Living Goals Most Recent Value Other PT Senior Living Goals Other Goals - Dry Transfer Man Dry Transfer Man 1, Senior Living 2 Filed on: 01/21/20201456 Other Dry Transfer Man Goal 1 Pt to perform all transfer mobility with LRAD and Mod I. Filed on: 01/21/20201456 Other Dry Transfer Man Goal 1 Status Established Filed on: 01/21/20201456 Other Senior Living Goal 2 Pt to perform 2MWT with a distance of at least 70 feet with LRAD. Filed on: 01/21/20201456 Other Senior Living Goal 2 Status Established Filed on: 01/21/20201456 Expected Achievement Date 02/04/20 Filed on: 01/21/2020 145 PT Short Term Goal 1: Focus: Car Transfer Details: Pt to perform car transfer with close supervision throughout and maintain proper hip precautions. Expected Achievement Date: 01/28/2020 Goal Status: Established PT Short Term Goal 2: Focus: Walking Details: Pt to ambulate up to 150 feet with LRAD and close supervision. Expected Achievement Date: 01/28/2020 Status: Established PT Short Term Goal 3: Focus: Steps Details: Pt to ascend/descend at least 12 steps at 6 inches with B HR and close supervision. Expected Achievement Date: 01/28/2020 Status: Established PT Short Term Goal 4: Focus: Wheelchair Management Details: Pt to propel wheelchair up to 150 feet with Min A. Expected Achievement Date: 01/28/2020 Goal Status: Established PT Short Term Goal 5: Details: Pt to perform TUG. Expected Achievement Date: 01/28/2020 Goal Status: Established Evaluation Summary:: Mr. Ferdinand Rasmussen is a 74 year old male with a primary problem of osteoarthritis.(Left total hip arthroplasty per preadmission screening). 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 Of note: patient demonstrates increased difficulty with recall of subjective intake. HOME SITUATION: lives at home with nephew (works most of the day). Approximately 6 steps to enter with bilateral handrail support. ASSISTANCE AVAILABLE UPON RETURN TO HOME: he notes that his nephew is gone working throughout the day. He also notes that he has someone that comes in and works for him, about 2 hours every day and serves him lunch CURRENTLY OWNED DME: cane and rolling walker PRIOR LEVEL OF FUNCTION: he notes that he would walk around the house with rolling walker and no assistance at prior level. He notes that he would stay in the home. His current functional mobility is as follows. TRANSFERS: Sit to and from stand with contact guard assistance using rolling walker. Stand pivot transfer with contact guard assistance using rolling walker. Car transfer with minimal assistance. GAIT: Ambulates up to 107 feet with rolling walker (prior level of function) and contact guard assistance. Ambulates across uneven surface with rolling walker and contact guard assistance. ELEVATIONS Ascends/descends 6 steps at 6 inches each with bilateral handrails and minimal assistance. Ascends/descends 6 inch curb step (see above) WHEELCHAIR ASSESSMENT: propels manual wheelchair up to 75 feet with minimal assistance prior to requiring total assistance for all remaining wheelchair mobility. OBJECT LIFE SCIENCES MANAGER: Picks up object from the floor with unsafe to perform at this time secondary to hipprecautions. Standardized Assessment: 2 Minute Walk Test: 45 feet with rolling walker; 6 Minute Walk Test: 107 feet with rolling walker He presents with the below listed impairments. Due to his previous medical history as well as his current level of function, he has good rehab potential. He would benefit from skilled intensive inpatient rehabilitation services at this time in order to further improve upon the below listed impairments and prepare for return to home. Problem List:: Decreased cognition, Decreased endurance, Decreased independence with foundational gross motor skills, Decreased mobility, Decreased range of motion, Decreased skin integrity, Impairedbalance, Impaired elevation ability, Impaired judgement, Pain, Reluctance to stand and weight bear through lower extremities, Decreased coordination, Decreased postural alignment in sitting/standing,Decreased safety awareness, Decreased strength, Impaired ambulation ability, Impaired transfer ability, Impaired wheelchair management and Precautions Limit Function Additional Pertinent Information: PREVIOUS MEDICAL HISTORY/COMORBIDITY LIST: Debility, 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 Posterior Hip Precautions: L LE PT to Provide the Following Services:: Aerobic/Endurance conditioning, Balance/proprioceptive training, Education - patient/family, Elevation training, Gait training, Therapeutic activities, Wheelchair safety and mobility training, Adaptive equipment/DME prescription and application, Body mechanics/ergonomics, Fall prevention, Home Exercise Program (HEP) prescription, Neuromuscular re- education, Therapeutic exercise and Wound/integumentary care Frequency of PT: 45-90 minutes 5 out of 7 days Therapist that Will Oversee Plan of Care:: Kylie Sanchez PT Pain Evaluation and Follow-up Pain Reassessment: No pain (01/21/20 1205) Nursing notified of patient's pain assessment: Not indicated - pain score 2 or less (01/21/20 1205) Therapy Minutes Time In : 1032 Time Out: 1207 Time calculation (min): 95 min Missed Minutes : 5 KYLIE SANCHEZ PT 01/21/2020 * OT Initial Evaluation - Carlos Caba OT - 01/21/2020 7:33 AM CDT Occupational Therapy Evaluation Patient Name: Odale Long Patient Birthdate: 1945 Pain Assessment Pain Context: Therapy Assessment Prior to Treatment (01/21/20729) Pain Assessment: None/denies pain (01/21/20729) Vital Signs Pulse: 60 (01/21/20729) Heart Rate Source: Monitor (01/21/20729) BP: (!) 97/39(RN notified) (01/21/20729) MAP (mmHg): 58.33 (01/21/20729) BP Location: Left arm (01/21/20729) BP Method: Automatic (01/21/20729) Patient Position: Lying (01/21/20729) Oxygen Context: Resting (01/21/20729) SpO2: 99 % (01/21/20729) O2 Device: None (Room air) (01/21/20729) Home Living Type of Home: Apartment (01/21/20742) # steps into the home: 7 (01/21/20742) Home Layout: One level (01/21/20742) Bathroom Equipment: None (01/21/20742) Bathroom Accessibility: Walk-in Shower(Pt reports he completes sponge bathing only at baseline) (01/21/20742) Home Evaluation Required?: To be assessed (01/21/20742) Prior Function Level of [place]: Independent with ambulation using an assistive device;Assist with IADLs(w/ use of a RW for mobility within the home, Nephew assists with all IADLs) (01/21/20742 : Carlos Caba OT) Lives With: Family(Nephew) (01/21/20742 : Carlos Caba OT) Receives Help From: Family (01/21/20742 : Carlos Caba OT) Vocational: Retired (01/21/20742 : Carlos Caba OT) Leisure: Hobbies-yes (Comment)([employer]) (01/21/20742 : Carlos Caba OT) Occupation/Work History: Current Work Status: Retired Prior Functional Status: ADL Required Assistance: Independent (Per pt report) Previously Used Home Health Aide: Yes Drove Vehicle Prior to Admission: No Required assistance for mobility?: Yes SIGNIFICANT HABITS AND ROUTINES: Significant Habits and Routines: Roles: Uncle Interests: [employer]. 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 Eating - CARE Score: 5 Oral Hygiene Assistance Needed: Set-up / clean-up Physical Assistance Level: No physical assistance Comment: Pt able to complete oral care with setup assist for item retrieval and opening of groomingitems Oral Hygiene - CARE Score: 5 Toileting Hygiene Assistance Needed: Physical assistance Physical Assistance Level: Total assistance Comment: Per nursing report - pt requires total assistance, requiring assist for clothing management and hygiene Toileting Hygiene - CARE Score: 1 Shower/Bathe Self Assistance Needed: Physical assistance Physical Assistance Level: 25%-49% Comment: Pt participates in sponge bathing while seated at sink for baseline assessment. Pt requires assist with lower legs and buttocks. Pt able to wash/dry arms, abdomen, chest, upper legs and cruz-area. Shower/Bathe Self - CARE Score: 3 Upper Body Dressing Comment: No shirt available for pt to don/doff. Pt able to don/hospital gown with setup assistance. Reason if not Attempted: Environmental limitations Upper Body Dressing - CARE Score: 10 Lower Body Dressing Assistance Needed: Physical assistance Physical Assistance Level: Total assistance Comment: pt requires total assist due to impaired functional reach towards lower legs secondary to posterior hip precautions. Pt requires verbal reminders for adherence. Pt participates in donning clothes over hips however requires assist to complete. Lower Body Dressing - CARE Score: 1 Putting On/Taking Off Footwear Assistance Needed: Physical assistance Physical Assistance Level: Total assistance Comment: Total assist secondary to limited functional reach secondary to hip precautions. Putting On/Taking Off Footwear - CARE Score: 1 Roll Left and Right Assistance Needed: Physical assistance Physical Assistance Level: Less than 25% Comment: Min assist to advance LLE Roll Left and Right - CARE Score: 3 Sit to Lying Assistance Needed: Physical assistance Physical Assistance Level: Less than 25% Comment: Minimal assistance to elevate LLE Sit to Lying - CARE Score: 3 Lying to Sitting on Side of Bed Assistance Needed: Physical assistance Physical Assistance Level: Less than 25% Comment: Min assist to manuever LLE off the EOB Lying to Sitting on Side of Bed - CARE Score: 3 Sit to Stand Assistance Needed: Physical assistance Physical Assistance Level: Less than 25% Comment: Min assist due to impaired force production Sit to Stand - CARE Score: 3 Chair/[id number] Transfer Assistance Needed: Physical assistance Physical Assistance Level: Less than 25% Comment: Min assist due to impaired force production, LLE strength and impaired balance. Verbal cues required for safety and sequencing Chair/[id number] Transfer - CARE Score: 3 Toilet Transfer Assistance Needed: Physical assistance Physical Assistance Level: Less than 25% Comment: Minimal assistance secondary to impaired force production and decreased safety awareness with sequencing Toilet Transfer - CARE Score: 3 Hearing, Speech, and Vision Expression of Ideas and Wants: Without difficulty Understanding Verbal and Non-Verbal Content: Understands Brief Interview for Mental Status (BIMS) Repetition of Three Words (First Attempt): 3 Temporal Orientation: Year: Nonsensical(Pt reports [place] are in the [place] so..) Temporal Orientation: Month: Accurate within 5 days Temporal Orientation: Day: Incorrect Recall: Sock: Yes, no cue required Recall: Blue: Yes, no cue required Recall: Bed: Yes, no cue required BIMS Summary Score: 11 PERFORMANCE SKILLS ASSESSMENT: Performance Skills Assessment: Behavioral/Affective Observations: Anxious, Guarded and Withdrawn Cognitive Skills: Impaired memory, Distractible, Decreased orientation and Decreased recall of biographical information (Pt oriented to self, personal circumstance and place. Pt requires orientation for date/time. Pt demonstrates difficulty recalling biographical info. ) Functional Endurance: Functional Endurance: Impaired MUSCULOSKELETAL STATUS: RUE Assessment-ROM and MMT: Within Functional Limits (Formal MMT assessment required on later date when time allows. AROM appears WFL ) LUE Assessment-ROM and MMT: Within Functional Limits (Formal MMT assessment required on later date.AROM appears WFL. ) Right Upper Extremity: WNL Left Upper Extremity: WNL Tremors: No Patient's and/or Caregiver's Goals: Communication Goals (in their own words): Pt denies to answer however agreeable to working towards walking to the bathroom and learning to get dressed with new hip precautions. Goals Generated By:: Patient unable to generate a response CARE Score Mario: 6: Independent. [place] provides no assistance with tasks. A device may or may not have been used. 5: Set-up or clean-up assistance. [place] sets up or cleans up, but does not assist with tasks. [place] may have assisted prior to or following the activity. 4: Supervision or touching assistance. [place] provides verbal cues or touching/steadying or contactguard assistance. Assistance may be provided throughout the activity or intermittently. 3: Partial/moderate assistance. [place] does less than half the effort. [place] lifts, holds, or supports trunk or limbs, but provides less than half the effort. 2: Substantial/maximal assistance. [place] does more than half the effort. [place] lifts or holds trunk or limbs, and provides more than half the effort. 1: Dependent. [place] does all of the effort, or the assistance of two or more helpers is required for the patient to complete the activity. -: Inconsistent or incomplete documentation Activity not attempted values: 7: Patient refused 9: Not applicable - Not attempted and the patient did not perform this activity prior to the current illness, exacerbation, or injury. 10: Not attempted due to environmental limitations (e.g., lack of equipment, weather constraints) 88: Not attempted due to medical condition or safety concerns Senior Living Goals: Status on Admission Goal Eating - CARE Score: 5 (01/21/20821) Eating LTG: Independent (01/21/20850) Oral Hygiene - CARE Score: 5 (01/21/20821) Oral Hygiene LTG: Independent (01/21/20850) Toileting Hygiene - CARE Score: 1 (01/21/20821) Toileting Hygiene LTG: Independent (01/21/20850) Shower/Bathe Self - CARE Score: 3 (01/21/20821) Shower/Bathe Self LTG: Supervision or touching assistance (01/21/20850) Upper Body Dressing - CARE Score: 10 (01/21/20821) Upper Body Dressing LTG: Independent () Lower Body Dressing - CARE Score: 1 (01/21/20821) Lower Body Dressing LTG: Supervision or touching assistance (01/21/20850) Putting On/Taking Off Footwear - CARE Score: 1 (01/21/20821) Roll Left and Right - CARE Score: 3 (01/21/20821) Sit to Lying - CARE Score: 3 (01/21/20821) Lying to Sitting on Side of Bed - CARE Score: 3 (01/21/20821) Sit to Stand - CARE Score: 3 (01/21/20821) Chair/Rbn-wa-Agesp Transfer - CARE Score: 3 (01/21/20821) Chair/Yza-mj-Qlznj Transfer LTG: Independent (01/21/20850) Toilet Transfer - CARE Score: 3 (01/21/20821) Toilet Transfer LTG: Independent (01/21/20850) OT Short Term Goal 1: Focus: Toileting Hygiene Details: Pt will complete with moderate assistance using AD and DME as needed Expected Achievement Date: 01/28/2020 Goal Status: Established OT Short Term Goal 2: Focus: Shower/Bathe Details: Pt will complete bathing with minimal assistance while sponge bathing at the sink Expected Achievement Date: 01/28/2020 Goal Status: Established OT Short Term Goal 3: Focus: Lower Body Dressing Details: Pt will complete lower body dressing with maximal assistance using LB AE and AD as needed Expected Achievement Date: 01/28/2020 Goal Status: Established OT Short Term Goal 4: Focus: Chair/Bed Transfer Details: Pt will complete bed/chair transfer with supervision using LRAD Expected Achievement Date: 01/28/2020 Goal Status: Established OT Short Term Goal 5: Focus: Toilet Transfer Details: Pt will complete toilet transfer with supervision using LRAD Expected Achievement Date: 01/28/2020 Goal Status: Established Plan of Care and Recommendations: Evaluation Summary:: Ferdinand Rasmussen presents as 74 y.o. y/o male s/p L THR with a history of ESRD on dialysis, HTN, dialysis, DM, CVA and A-Fib. He was independent with ADL's prior to admission however required assist with all IADL's from family. He currently presents with moderate deficits limiting ind ependence with ADLs and transfers. Mr. Rasmussen presents with impaired endurance, impaired LLE strength, impaired functional reach due to hip precautions, impaired cognition and pain limiting independence with self-care. PRECAUTIONS INCLUDE: Posterior hip precautions. Ferdinand Rasmussen demonstrates good potential to improve in rehab. He will receive 45-90 minute of intense occupational therapy in individualor group setting as appropriate 5 days per week to increase independence for safe d/c to least restrictive environment. Problem List:: Activity Tolerance, Cognitive deficits, Leisure skill, Mobility, Visual deficits, Decreased functional endurance, Decreased functional status in ADL's, Impaired balance, Decreased transfer status, Decreased upper body strength and Impaired cognitive skills Additional Pertinent Information: Patient remained up sitting in chair at end of session with pelvic positioning belt on, chair alarm in place, call light and phone within reach. OT to Provide the Following Services:: ADL and Transfer Training, Neuromusculature Re-education, UETherex, Manual Therapy Techniques as Appropriate, Cognitive Retraining, Balance Training, Home Safety and Modification Education, Energy Conservation and Activity Modifications, Functional Endurance Training, Assistive Technology Education and Training, Adaptive Equipment/DME Education, Wheelchair Safety and Mobility Training, Positioning, Modalities to prepare for functional training, Home Evaluation as needed, Community Reintegration as needed prior to discharge, Patient/Family Education and Training and OT IADLS (homemaking skills, med. mgmt, meal prep,etc.) Frequency:: 45-90 minutes 5 out of 7 days Therapist that Will [place] Plan of Care:: Carlos Caba OTR/L Pain Evaluation and Follow-up Pain Reassessment: No pain (01/21/20829) Nursing notified of patient's pain assessment: Not indicated - pain score 2 or less (01/21/20829) Therapy Minutes Time In : 0733 Time Out: 0900 Time calculation (min): 87 min Missed Minutes : -3 CARLOS CABA OT 01/21/2020 * Plan of Care - Yue Cerda RN - 01/21/2020 3:06 AM CDT Problem: Infection Goal: Absence of infection and prevention of transmission during hospitalization Outcome: Progressing documented in this encounter Plan of Treatment Scheduled Orders Name Type Priority Associated Diagnoses Orde r Schedule Hemodialysis inpatient (bath) Dialysis Routine Once frequency f or one time dialysis orders for 1 Occurrences starting 02/01/2020 until 02/01/2020 Scheduled Referrals Name Type Priority Associated Diagnoses Orde r Schedule Consult to [facility] (Patient requires skilled day therapy program) Outpatient Referral Routine Unilateral primary osteoarthritis of right hip Ordered: 01/26/2020 Consult to Home Care Outpatient Referral Routine Unilateral primary osteoarthritis of right hip Ordered: 01/26/2020 documented as of this encounter Procedures Procedure Name Priority Date/Time Associated Diagnosis Comments XR ANKLE 3 VW LEFT Routine 02/01/2020 2: 33 PM CDT CBC Routine 01/31/2020 5:00 AM CDT URIC ACID Add-On 01/31/2020 5:00 AM CDT BASIC METABOLIC PANEL Routine 01/31/2020 5:00 AM CDT HEMODIALYSIS INPATIENT Routine 0 1:07 PM CDT IRON AND TIBC Routine 01/28/2020 4:00 AM CDT B-TYPE NATRIURETIC PEPTIDE Routine 01/28/2020 4:00 AM CDT FOLATE Routine 01/28/2020 4:00 AM CDT FERRITIN Routine 01/28/2020 4:00 AM CDT VITAMIN B12 Routine 01/28/2020 4:00 AM CDT HEMODIALYSIS INPATIENT Routine 0 2:08 PM CDT CBC Routine 01/27/2020 4:45 AM CDT BASIC METABOLIC PANEL Routine 01/27/2020 4:45 AM CDT POCT GLUCOSE Routine 01/25/2020 9:13 PM CDT POTASSIUM Routine 01/25/2020 12:18 PM CDT HEMODIALYSIS INPATIENT Routine 0 11:47 AM CDT CBC Routine 01/24/2020 3:33 AM CDT COMPREHENSIVE METABOLIC PANEL Routine 01/24/2020 3:33 AM CDT HEMODIALYSIS INPATIENT Routine 0 12:30 AM CDT CBC Routine 01/21/2020 5:30 AM CDT BASIC METABOLIC PANEL Routine 01/21/2020 5:30 AM CDT documented in this encounter Results * XR ankle left 3 vws (02/01/2020 2:33 PM CDT) Anatomical Region Laterality Modality Computed Radiogr aphy Narrative 02/01/2020 4:04 PM CDT NARRATIVE: Left Ankle 3 Views INDICATION: Left ankle pain nontraumatic Findings: No fracture or malalignment. Ankle mortise preserved. Healed mid to distal left fibular fracture. *Reading Radiologist: Randy Dillon on 02/01/2020 at 4:04 PM Procedure Note System, Provider Not In - 02/01/2020 NARRATIVE: Left Ankle 3 Views INDICATION: Left ankle pain nontraumatic Findings: No fracture or malalignment. Ankle mortise preserved. Healed mid to distal left fibular fracture. *Reading Radiologist: Randy Dillon on 02/01/2020 at 4:04 PM us Manoj Morrison NP IMG DIAGNOSTIC IMAGING ORDERABLE S Final Result * (ABNORMAL) URIC ACID (01/31/2020 5:00 AM CDT) Uric Acid mg/dL Blood 3.3(L) 3.5 - 7.2 mg/dL [facility] Blood 01/31/2020 5:00 AM CDT 01/31/2020 7:11 AM CDT Narrative [facility] - 01/31/2020 1:13 PM CDT From blood in lab 01/30 us Manoj Morrison NP LAB BLOOD ORDERABLES Final Resul t [facility] [address] [place] [address] * (ABNORMAL) Basic metabolic panel (01/31/2020 5:00 AM CDT) Glucose mg/dL Blood 92 70 - 105 mg/dL [facility] Sodium mmol/L Blood 133(L) 136 - 145 mmol/L [facility] Potassium mmol/L Blood 5.4(H) 3.5 - 5.1 mmol/L [facility] Chloride 97(L) 98 - 107 mmol/L [facility] CO2 26 23 - 31 mmol/L [facility] Calcium mg/dL Blood 8.8 8.4 - 10.4 mg/dL [facility] Anion Gap Blood 10 8 - 16 mmol/L [facility] Bun mg/dL Blood 35(H) 8.4 - 25.7 mg/dL [facility] Creatinine 6.11(H) 0.72 - 1.25 mg/dL [facility] Egfr By MDRD ml/Min/1.73 M2 Blood 9 mL/min/1.7 3m2 [facility] Egfr By MDRD ml/Min/1.73 M2 Blood Afr.Amer 11 mL/min/1.7 3m2 [facility] Blood 01/31/2020 5:00 AM CDT 01/31/2020 7:11 AM CDT Nicole Magaña MD LAB BLOOD ORDERABLES Final Result [facility] [address] [place] [address] * (ABNORMAL) CBC (01/31/2020 5:00 AM CDT) WBC X(10)9/L Blood 4.6 4.4 - 10.7 x10E9/L [facility] Rbc X(10)12/L Blood 2.30(L) 3.80 - 5.40 x10E12/L [facility] HGB gm/dL Blood 7.8(L) 12.0 - 17.6 gm/dL [facility] HCT % Blood 24.1(L) 35.2 - 51.7 % [facility] MCV fL Blood 104.8(H) 80.7 - 98.3 fl [facility] MCH pg Blood 33.9 26.7 - 34.0 pg [facility] MCHC gm/dL Blood 32.4 30.8 - 35.9 gm/dL [facility] Plt Ct X(10)9/L Blood 236 153 - 416 x10E9/L [facility] RDW-Cv % Blood 12.1 12.1 - 14.9 % [facility] MPV fL Blood 9.5 9.4 - 12.9 fl [facility] Blood 01/31/2020 5:00 AM CDT 01/31/2020 7:11 AM CDT Nicole Magaña MD LAB BLOOD ORDERABLES Final Result Performing Organization Address City/[facility] Co de Phone Number [facility] [address] [place] [address] * (ABNORMAL) FERRITIN (01/28/2020 4:00 AM CDT) Ferritin ng/mL Blood 4204(H) 22 - 275 ng/mL [facility] Blood 01/28/2020 4:00 AM CDT 01/28/2020 6:22 AM CDT Mor Ordonez NP LAB BLOOD ORDERABLES Final R esult Performing Organization Address [facility] de Phone Number [facility] [address] [place] [address] * (ABNORMAL) Iron and TIBC (01/28/2020 4:00 AM CDT) Iron ug/dL Blood 47(L) 65 - 175 ug/dL [facility] Transferrin mg/dL Blood 125(L) 163 - 344 mg/dL [facility] TIBC Calculated mg/dL Blood 156(L) 240 - 450 ug/dL [facility] Saturation % Blood 30 20 - 50 % [facility] Blood 01/28/2020 4:00 AM CDT 01/28/2020 6:22 AM CDT Mor Ordonez NP LAB BLOOD ORDERABLES Final R esult Performing Organization Address City/[facility] Co de Phone Number [facility] [address] [place] [address] * VITAMIN B12 (01/28/2020 4:00 AM CDT) Vitamin B12 pg/mL Blood 419 213 - 816 pg/mL [facility] Blood 01/28/2020 4:00 AM CDT 01/28/2020 6:22 AM CDT Mor Ordonez NP LAB BLOOD ORDERABLES Final R esult Performing Organization Address [facility] de Phone Number [facility] [address] [place] [phone] * FOLATE (01/28/2020 4:00 AM CDT) [facility] Folate ng/mL Blood 12.2 7.0 - 31.4 ng/mL [facility] Blood 01/28/2020 4:00 AM CDT 01/28/2020 6:22 AM CDT Mor Ordonez NP LAB BLOOD ORDERABLES Final R esult Performing Organization Address [facility] de Phone Number [facility] [address] [place] [phone] * B-type natriuretic peptide (01/28/2020 4:00 AM CDT) [facility] BNP 36 <=100 pg/mL [facility] Blood 01/28/2020 4:00 AM CDT 01/28/2020 6:22 AM CDT Mor Ordonez NP LAB BLOOD ORDERABLES Final R esult Performing Organization Address [facility] de Phone Number [facility] [address] [place] [phone] * (ABNORMAL) Basic metabolic panel (01/27/2020 4:45 AM CDT) [facility] Glucose mg/dL Blood 87 70 - 105 mg/dL [facility] Sodium mmol/L Blood 133(L) 136 - 145 mmol/L [facility] Potassium mmol/L Blood 4.9 3.5 - 5.1 mmol/L [facility] Chloride 96(L) 98 - 107 mmol/L [facility] CO2 27 23 - 31 mmol/L [facility] Calcium mg/dL Blood 8.7 8.4 - 10.4 mg/dL [facility] Anion Gap Blood 10 8 - 16 mmol/L [facility] Bun mg/dL Blood 24 8.4 - 25.7 mg/dL [facility] Creatinine 6.28(H) 0.72 - 1.25 mg/dL [facility] Egfr By MDRD ml/Min/1.73 M2 Blood 9 mL/min/1.7 3m2 [facility] Egfr By MDRD ml/Min/1.73 M2 Blood Afr.Amer 11 mL/min/1.7 3m2 [facility] Blood 01/27/2020 4:45 AM CDT 01/27/2020 6:39 AM CDT Nicole Magaña MD LAB BLOOD ORDERABLES Final Result [facility] [address] [place] [address] * (ABNORMAL) CBC (01/27/2020 4:45 AM CDT) WBC X(10)9/L Blood 4.5 4.4 - 10.7 x10E9/L [facility] Rbc X(10)12/L Blood 2.34(L) 3.80 - 5.40 x10E12/L [facility] HGB gm/dL Blood 7.8(L) 12.0 - 17.6 gm/dL [facility] HCT % Blood 24.5(L) 35.2 - 51.7 % [facility] MCV fL Blood 104.7(H) 80.7 - 98.3 fl [facility] MCH pg Blood 33.3 26.7 - 34.0 pg [facility] MCHC gm/dL Blood 31.8 30.8 - 35.9 gm/dL [facility] Plt Ct X(10)9/L Blood 289 153 - 416 x10E9/L [facility] RDW-Cv % Blood 12.2 12.1 - 14.9 % [facility] MPV fL Blood 9.2(L) 9.4 - 12.9 fl [facility] Blood 01/27/2020 4:45 AM CDT 01/27/2020 6:39 AM CDT us Nicole Magaña MD LAB BLOOD ORDERABLES Final Result Performing Organization Address [facility] Co de Phone Number [facility] [id number] [place] [phone] * POCT glucose (01/25/2020 9:13 PM CDT) Glucose Blood, POC 150 70 - 120 mg/dL [facility] Blood 01/25/2020 9:13 PM CDT 01/25/2020 9:13 PM CDT us Provider Not In System LAB POINT OF CARE TEST OR DERABLES Final Result Performing Organization Address [facility] de Phone Number JOSE FRANCISCO * (ABNORMAL) POTASSIUM (01/25/2020 12:18 PM CDT) Potassium mmol/L Blood 5.3(H) 3.5 - 5.1 mmol/L [facility] Blood 01/25/2020 12:1 8 PM CDT 01/25/2020 2:16 PM CDT Carmen Blackman MD LAB BLOOD ORDERABLES Final Resul t Performing Organization Address [facility] de Phone Number [facility] [address] [place] [address] * (ABNORMAL) CBC (01/24/2020 3:33 AM CDT) WBC X(10)9/L Blood 6.4 4.4 - 10.7 x10E9/L [facility] Rbc X(10)12/L Blood 2.34(L) 3.80 - 5.40 x10E12/L [facility] HGB gm/dL Blood 7.8(L) 12.0 - 17.6 gm/dL [facility] HCT % Blood 24.9(L) 35.2 - 51.7 % [facility] MCV fL Blood 106.4(H) 80.7 - 98.3 fl [facility] MCH pg Blood 33.3 26.7 - 34.0 pg [facility] MCHC gm/dL Blood 31.3 30.8 - 35.9 gm/dL [facility] Plt Ct X(10)9/L Blood 283 153 - 416 x10E9/L [facility] RDW-Cv % Blood 12.4 12.1 - 14.9 % [facility] MPV fL Blood 9.7 9.4 - 12.9 fl [facility] Blood 01/24/2020 3:33 AM CDT 01/24/2020 6:52 AM CDT us Nicole Magaña MD LAB BLOOD ORDERABLES Final Result [facility] [address] [place] [address] * (ABNORMAL) COMPREHENSIVE METABOLIC PANEL (01/24/2020 3:33 AM CDT) Glucose mg/dL Blood 96 70 - 105 mg/dL [facility] Sodium mmol/L Blood 136 136 - 145 mmol/L [facility] Potassium mmol/L Blood 4.8 3.5 - 5.1 mmol/L [facility] Chloride 98 98 - 107 mmol/L [facility] CO2 28 23 - 31 mmol/L [facility] Calcium mg/dL Blood 8.8 8.4 - 10.4 mg/dL [facility] Anion Gap Blood 10 8 - 16 mmol/L [facility] Bun mg/dL Blood 32(H) 8.4 - 25.7 mg/dL [facility] Creatinine 5.84(H) 0.72 - 1.25 mg/dL [facility] Alk Phos U/L Blood 66 40 - 150 U/L [facility] ALT/SGPT U/L Blood 11 0 - 61 U/L [facility] AST/SGOT U/L Blood 17 5 - 34 U/L [facility] Protein Total gm/dL Blood 6.5 6.4 - 8.3 gm/dL [facility] Albumin gm/dL Blood 3.5 3.2 - 4.6 gm/dL [facility] Bilirubin Total mg/dL Blood 0.3 0.2 - 1.2 mg/dL [facility] Egfr By MDRD ml/Min/1.73 M2 Blood 10 mL/min/1.7 3m2 [facility] Egfr By MDRD ml/Min/1.73 M2 Blood Afr.Amer 12 mL/min/1.7 3m2 [facility] Blood 01/24/2020 3:33 AM CDT 01/24/2020 6:52 AM CDT us Robbin Brown NP LAB BLOOD ORDERABLES Final Resu lt Performing Organization Address City/[facility]/ZIP Co de Phone Number [facility] [address] [place] [address] * (ABNORMAL) BASIC METABOLIC PANEL (01/21/2020 5:30 AM CDT) Glucose mg/dL Blood 115(H) 70 - 105 mg/dL [facility] Sodium mmol/L Blood 138 136 - 145 mmol/L [facility] Potassium mmol/L Blood 4.5 3.5 - 5.1 mmol/L [facility] Chloride 99 98 - 107 mmol/L [facility] CO2 29 23 - 31 mmol/L [facility] Calcium mg/dL Blood 8.9 8.4 - 10.4 mg/dL [facility] Anion Gap Blood 10 8 - 16 mmol/L [facility] Bun mg/dL Blood 29(H) 8.4 - 25.7 mg/dL [facility] Creatinine 4.52(H) 0.72 - 1.25 mg/dL [facility] Egfr By MDRD ml/Min/1.73 M2 Blood 13 mL/min/1.7 3m2 [facility] Egfr By MDRD ml/Min/1.73 M2 Blood Afr.Amer 15 mL/min/1.7 3m2 [facility] Blood 01/21/2020 5:30 AM CDT 01/21/2020 6:24 AM CDT Nicole Magaña MD LAB BLOOD ORDERABLES Final Result Performing Organization Address City/[facility]/ZIP Co de Phone Number [facility] [address] [place] [address] * (ABNORMAL) CBC w/o Differential (01/21/2020 5:30 AM CDT) WBC X(10)9/L Blood 5.3 4.4 - 10.7 x10E9/L [facility] Rbc X(10)12/L Blood 2.49(L) 3.80 - 5.40 x10E12/L [facility] HGB gm/dL Blood 8.3(L) 12.0 - 17.6 gm/dL [facility] HCT % Blood 26.4(L) 35.2 - 51.7 % [facility] MCV fL Blood 106.0(H) 80.7 - 98.3 fl [facility] MCH pg Blood 33.3 26.7 - 34.0 pg [facility] MCHC gm/dL Blood 31.4 30.8 - 35.9 gm/dL [facility] Plt Ct X(10)9/L Blood 226 153 - 416 x10E9/L [facility] RDW-Cv % Blood 13.0 12.1 - 14.9 % [facility] MPV fL Blood 9.3(L) 9.4 - 12.9 fl [facility] Blood 01/21/2020 5:30 AM CDT 01/21/2020 6:24 AM CDT us Nicole Magaña MD LAB BLOOD ORDERABLES Final Result Performing Organization Address City/State/[facility] Co de Phone Number [facility] [address] [place] [address] documented in this encounter Visit Diagnoses Diagnosis Unilateral primary osteoarthritis of right hip- Primary Osteoarthritis documented in this encounter Admitting Diagnoses Diagnosis Osteoarthritis documented in this encounter Administered Medications Inactive Administered Medications - up to 3 most recent administrations Medication Order MAR Action Action Date Dose Rate Site acetaminophen (TYLENOL) tablet 650 mg 650 mg, Oral, Every 6 hours PRN, Starting on Susan 01/20/20 at 1820, Until Fri02/01/20 at 1850, mild pain, Temp > or equal to 101F (38.3C) Given 01/22/2020 9:45 PM CDT 650 mg allopurinol (ZYLOPRIM) tablet 100 mg 100 mg, Oral, Daily, First dose (after last modification) on Fri01/21/20 at 0900, Until Discontinued, Give dose everyday but after dialysis on dialysis days. Given 01/23/2020 8:25 AM CDT 100 mg Given 01/22/2020 8:23 AM CDT 100 mg Given 01/21/2020 8:28 AM CDT 100 mg allopurinol (ZYLOPRIM) tablet 100 mg 100 mg, Oral, Nightly, First dose (after last modification) on Fri01/25/20 at 2100, Until Discontinued, Give dose everyday but after dialysis on dialysis days. Given 01/31/2020 8:26 PM CDT 100 mg Given 01/30/2020 8:37 PM CDT 100 mg Given 01/29/2020 9:11 PM CDT 100 mg Apixaban (ELIQUIS) tablet 2.5 mg 2.5 mg, Oral, 2 times daily, First dose (after last modification) on Fri01/20/20 at 2100, Until Discontinued Given 02/01/2020 12:22 PM CDT 2.5 mg Given 01/31/2020 8:26 PM CDT 2.5 mg Given 01/31/2020 8:05 AM CDT 2.5 mg atorvastatin (LIPITOR) tablet 20 mg 20 mg, Oral, Nightly, First dose (after last modification) on Fri01/20/20 at 2100, Until Discontinued Given 01/31/2020 8:26 PM CDT 20 mg Given 01/30/2020 8:37 PM CDT 20 mg Given 01/29/2020 9:11 PM CDT 20 mg Benzocaine-Menthol (CEPACOL) 1 lozenge 1 lozenge, Oral, 3 times daily PRN, Starting on Fri01/24/20 at 1551, Until Fri02/01/20 at 1850, sore throat, for dry throat Given 01/25/2020 7:58 AM CDT 1 lozenge Given 01/24/2020 5:06 PM CDT 1 lozenge dilTIAZem CD (CARDIZEM CD) 24 hr capsule 120 mg 120 mg, Oral, Daily, First dose (after last modification) on Fri01/21/20 at 0900, Until Discontinued, Hold for SBP less than 110, HR Less than 70 Given 01/29/2020 9:05 AM CDT 120 mg Given 01/28/2020 8:28 AM CDT 120 mg Given 01/26/2020 9:21 AM CDT 120 mg docusate sodium (COLACE) capsule 100 mg 100 mg, Oral, 2 times daily, First dose (after last modification) on Fri01/20/20 at 2100, Until Discontinued, Swallow whole. Do not crush, open, chew, or split capsule. Given 01/31/2020 8:26 PM CDT 100 mg Given 01/31/2020 8:07 AM CDT 100 mg Given 01/30/2020 8:37 PM CDT 100 mg epoetin ashly-epbx (RETACRIT) injection 6,000 Units 6,000 Units, Intravenous, Once, 1 dose, On 01/29/20 at 1315, Indication: [email or web address]\ [email or web address]\[email or web address] Epoetin Dosing ( Rev).pdf Given 01/29/2020 3:33 PM CDT 6,000 Units famotidine (PEPCID) tablet 20 mg 20 mg, Oral, Every 48 hours, First dose (after last modification) on Fri01/21/20 at 0900, Until Discontinued Given 01/31/2020 8:07 AM CDT 20 mg Given 01/29/2020 9:05 AM CDT 20 mg Given 01/27/2020 8:23 AM CDT 20 mg fluconazole (DIFLUCAN) tablet 200 mg 200 mg, Oral, Daily, 5 doses, First dose on Fri01/25/20 at 0900, Last dose on Fri01/29/20 at 0900, Reason for Therapy: Fungal Infection Suspected, Type of Therapy: New Therapy, Indication: Skin-soft tissue infection Given 01/29/2020 9:05 AM CDT 200 m g Given 01/28/2020 8:30 AM CDT 200 mg Given 01/27/2020 8:23 AM CDT 200 mg furosemide (LASIX) tablet 80 mg 80 mg, Oral, 2 times daily before meals, First dose (after last modification) on Fri01/20/20 at 1845, Until Discontinued, Hold for SBP less than 110 Given 01/30/2020 3:55 PM CDT 80 mg Given 01/30/2020 7:45 AM CDT 80 mg Given 01/29/2020 6:19 PM CDT 80 mg heparin (porcine) injection 1,000 Units 1,000 Units, Intravenous, T--Fri During Dialysis, First dose on Fri01/22/20 at 1000, Until Discontinued, HIGH RISK MEDICATION, Per dialysis session, may administer up to (# of dose(s)): 4 Given 02/01/2020 8:42 AM CDT 1,000 Units Given 01/29/2020 2:05 PM CDT 1,000 Units Given 01/27/2020 4:58 PM CDT 1,000 Units heparin (porcine) injection 4,300 Units 4,300 Units, Intracatheter, User-Specified After Dialysis (Once per day on Fri), First dose on Fri01/27/20 at 1430, Until Discontinued, Instill into lumens post dialysis 2.1mL arterial lumen 2.2mL venous lumen Given 02/01/2020 8:43 AM CDT 4,300 Unit s Given 01/29/2020 3:18 PM CDT 4,300 Units Given 01/27/2020 4:59 PM CDT 4,300 Units HYDROcodone-acetaminophen (LORCET PLUS) 10-325 MG per tablet 1 tablet 1 tablet, Oral, Every 6 hours PRN, Starting on Fri01/20/20 at 1820, Until Fri02/01/20 at 1850, severe pain Given 02/01/2020 2:28 AM CDT 1 tablet Given 01/31/2020 8:03 AM CDT 1 tablet Given 01/22/2020 6:32 PM CDT 1 tablet HYDROcodone-acetaminophen (NORCO) 5-325 MG per tablet 1 tablet 1 tablet, Oral, Every 6 hours PRN, Starting on Fri01/20/20 at 1820, Until Fri02/01/20 at 1850, moderate pain Given 01/30/2020 7:10 AM CDT 1 tablet Given 01/25/2020 12:26 PM CDT 1 tablet iron sucrose (VENOFER) injection 200 mg 200 mg, Intravenous, User-Specified During Dialysis (Once per day on Fri), 1 dose, First dose on Fri01/29/20 at 1315, Administer IV by slow injection or by infusion Given 01/29/2020 3:21 PM CDT 200 mg polyethylene glycol (MIRALAX) packet 17 g 17 g, Oral, Daily, First dose (after last modification) on Fri01/21/20 at 0900, Until Discontinued Given 01/31/2020 8:04 AM CDT 17 g Given 01/30/2020 12:15 PM CDT 17 g Given 01/29/2020 9:05 AM CDT 17 g rOPINIRole (REQUIP) tablet 0.5 mg 0.5 mg, Oral, Nightly, First dose (after last modification) on Susan 01/20/20 at 2100, Until Discontinued Given 01/31/2020 8:26 PM CDT 0.5 mg Given 01/30/2020 8:36 PM CDT 0.5 mg Given 01/29/2020 9:12 PM CDT 0.5 mg sevelamer carbonate (RENVELA) tablet 800 mg 800 mg, Oral, 3 times daily with meals, First dose (after last modification) on Fri01/20/20 at 1845, Until Discontinued Given 02/01/2020 12:23 PM CDT 800 mg Given 01/31/2020 4:37 PM CDT 800 mg Given 01/31/2020 12:07 PM CDT 800 mg sodium bicarbonate tablet 325 mg 325 mg, Oral, Daily, First dose (after last modification) on Fri01/21/20 at 0900, Until Discontinued Given 01/21/2020 8:30 AM CDT 325 mg sodium chloride 0.9 % infusion 0-500 mL 0-500 mL, Intravenous (Continuous Infusion), As Needed During Dialysis, Starting on Fri01/22/20 at 0800, Until Fri02/01/20 at 1850, Flush to maintain patency of system., To maintain dialysis circuit., Circuit Maintenance: To maintain dialysis circuit New Bag 01/29/2020 3:22 PM CDT 500 mL tamsulosin (FLOMAX) 24 hr capsule 0.4 mg 0.4 mg, Oral, Nightly, First dose (after last modification) on Susan 01/20/20 at 2100, Until Discontinued Given 01/31/2020 8:26 PM CDT 0.4 mg Given 01/30/2020 8:37 PM CDT 0.4 mg Given 01/29/2020 9:12 PM CDT 0.4 mg documented in this encounter Active and Recently Administered Medications Times are shown in CDT. Scheduled Medication Order 01/30/2020 01/31/2020 02/01/2020 allopurinol (ZYLOPRIM) tablet 100 mg 100 mg, Oral, Nightly, First dose (after last modification) on Fri01/25/20 at 2100, Until Discontinued, Give dose everyday but after dialysis on dialysis days. 2036 (Given - Provider: Una Medina RN) 2025 (Given - Provider: Rosalind Snyder, KAITLYNN) Apixaban (ELIQUIS) tablet 2.5 mg 2.5 mg, Oral, 2 times daily, First dose (after last modification) on Fri01/20/20 at 2100, Until Discontinued 807 (Given - Provider: Estrella Ford RN)2036 (Given - Provider: Una Medina RN) 08 (Given - Provider: Estrella Ford RN)2025 (Given - Provider: Rosalind Snyder RN) 122 (Given - Provider: Charlotte Yanez RN) atorvastatin (LIPITOR) tablet 20 mg 20 mg, Oral, Nightly, First dose (after last modification) on Fri01/20/20 at 2100, Until Discontinued 2036 (Given - Provider: Una Medina RN) 2025 (Given - Provider: Rosalind Snyder RN) dilTIAZem CD (CARDIZEM CD) 24 hr capsule 120 mg 120 mg, Oral, Daily, First dose (after last modification) on Fri01/21/20 at 0900, Until Discontinued, Hold for SBP less than 110, HR Less than 70 0808 (Not Given - Provider: Estrella Ford RN - Reason: Order parameters not met) 08 (Not Given - Provider: Estrella Ford RN - Reason: Order parameters not met) 09 (Not Given - Provider: Charlotte Yanez RN - Reason: Other - Comment: HD) docusate sodium (COLACE) capsule 100 mg 100 mg, Oral, 2 times daily, First dose (after last modification) on Fri01/20/20 at 2100, Until Discontinued, Swallow whole. Do not crush, open, chew, or split capsule. 0808 (Given - Provider: Estrella Ford RN)2036 (Given - Provider: Una Medina RN) 0807 (Given - Provider: Estrella Ford RN)2025 (Given - Provider: Rosalind Snyder RN) 0925 (Not Given - Provider: Charlotte Yanez RN - Reason: Patient/family refused) famotidine (PEPCID) tablet 20 mg 20 mg, Oral, Every 48 hours, First dose (after last modification) on Fri01/21/20 at 0900, Until Discontinued 0807 (Given - Provider: Estrella Ford RN) furosemide (LASIX) tablet 80 mg 80 mg, Oral, 2 times daily before meals, First dose (after last modification) on Fri01/20/20 at 1845, Until Discontinued, Hold for SBP less than 110 0745 (Given - Provider: Estrella Ford RN)1555 (Given - Provider: Estrella Ford RN) 0805 (Not Given - Provider: Estrella Ford RN - Reason: Order parameters not met)1637 (Not Given - Provider: Estrella Ford RN - Reason: Order parameters not met - Comment: Bp 104/51 HR 65) 0926 (Not Given - Provider: Charlotte Yanez RN - Reason: Other - Comment: bp low recieving HD)1630 (Canceled Entry - Provider: Automatic Discharge Provider - Comment: Automatically canceled at discontinue of medication order) heparin (porcine) injection 1,000 Units 1,000 Units, Intravenous, T--Sat During Dialysis, First dose on Fri01/22/20 at 1000, Until Discontinued, HIGH RISK MEDICATION, Per dialysis session, may administer up to (# of dose(s)): 4 0842 (Given - Provid er: Shahida Ken RN)1000 (Canceled Entry - Provider: Shahida Ken RN) heparin (porcine) injection 4,300 Units 4,300 Units, Intracatheter, User-Specified After Dialysis (Once per day on Fri Sat), First dose on Fri01/27/20 at 1430, Until Discontinued, Instill into lumens post dialysis 2.1mL arterial lumen 2.2mL venous lumen 0843 (Given - Provid er: Shahida Ken RN - Comment: Given during dialysis)1700 (Canceled Entry - Provider: Charlotte Yanez RN - Comment: hd completed bout 1200 noon) polyethylene glycol (MIRALAX) packet 17 g 17 g, Oral, Daily, First dose (after last modification) on Fri01/21/20 at 0900, Until Discontinued 08 (Not Given - Provider: Estrella Ford RN - Reason: Patient/family refused)1215 (Given - Provider: Estrella Ford RN - Comment: Requested now refused this morning ) 0804 (Given - Provider: Estrella Ford RN) 0928 (Not Given - Provider: Charlotte Yanez RN - Reason: Patient/family refused) rOPINIRole (REQUIP) tablet 0.5 mg 0.5 mg, Oral, Nightly, First dose (after last modification) on Susan 01/20/20 at 2100, Until Discontinued 2035 (Given - Provider: Una Medina RN) 2025 (Given - Provider: Rosalind Snyder RN) sevelamer carbonate (RENVELA) tablet 800 mg 800 mg, Oral, 3 times daily with meals, First dose (after last modification) on Susan 01/20/20 at 1845, Until Discontinued 0744 (Given - Provider: Estrella Ford RN)1214 (Given - Provider: Estrella Ford RN)1655 (Given - Provider: Estrella Ford RN) 0805 (Given - Provider: Estrella Ford RN)1207 (Given - Provider: Estrella Ford RN)1637 (Given - Provider: Estrella Ford RN) 0926 (Not Given - Provider: Charlotte Yanez RN - Reason: Other - Comment: No breakfast. on HD)1223 (Given - Provider: Charlotte Yanez RN)1700 (Canceled Entry - Provider: Automatic Discharge Provider - Comment: Automatically canceled at discontinue of medication order) sodium chloride 0.9 % infusion 200 mL 200 mL, Intravenous (Continuous Infusion), at 12,000 mL/hr, Administer over 1 Minutes, Once, 1 dose, On Fri01/22/20 at 0800, May repeat up to 1000 mL total per dialysis session., Keep systolic blood pressure (SBP) above (mmHg): 100 tamsulosin (FLOMAX) 24 hr capsule 0.4 mg 0.4 mg, Oral, Nightly, First dose (after last modification) on Susan 01/20/20 at 2100, Until Discontinued 2036 (Given - Provider: Una Medina RN) 2025 (Given - Provider: Rosalind Snyder, RN) PRN Medication Order 01/30/2020 01/31/2020 02/01/2020 acetaminophen (TYLENOL) tablet 650 mg 650 mg, Oral, Every 6 hours PRN, Starting on Fri01/20/20 at 1820, Until Fri02/01/20 at 1850, mild pain, Temp > or equal to 101F (38.3C) Benzocaine-Menthol (CEPACOL) 1 lozenge 1 lozenge, Oral, 3 times daily PRN, Starting on 01/24/20 at 1551, Until Fri02/01/20 at 1850, sore throat, for dry throat bisacodyl (DULCOLAX) suppository 10 mg 10 mg, Rectal, Daily PRN, Starting on Fri01/20/20 at 1820, Until Fri02/01/20 at 1850, constipation, No BM in 48hrs diphenhydrAMINE (BENADRYL) tablet 25 mg 25 mg, Oral, Every 6 hours PRN, Starting on Fri01/20/20 at 1820, Until Fri02/01/20 at 1850, itching HYDROcodone-acetaminophe n (LORCET PLUS) 10-325 MG per tablet 1 tablet(Linked Group 1) 1 tablet, Oral, Every 6 hours PRN, Starting on Fri01/20/20 at 1820, Until Fri02/01/20 at 1850, severe pain 0710 (See Alternative - Provider: Yue Foster RN) 0803 (Given - Provider: Estrella Ford RN) 0228 (Given - Provider: Rosalind Snyder, KAITLYNN) HYDROcodone-acetaminophe n (NORCO) 5-325 MG per tablet 1 tablet(Linked Group 1) 1 tablet, Oral, Every 6 hours PRN, Starting on Fri01/20/20 at 1820, Until Fri02/01/20 at 1850, moderate pain 0710 (Given - Provider: Yue Foster RN) 0803 (See Alternative - Provider: Estrella Ford RN) 0228 (See Alternative - Provider: Rosalind Snyder, KAITLYNN) ondansetron ODT (ZOFRAN-ODT) disintegrating tablet 4 mg 4 mg, Oral, Every 6 hours PRN, Starting on Susan 01/20/20 at 1820, Until Fri02/01/20 at 1850, nausea, vomiting sodium chloride 0.9 % infusion 0-500 mL 0-500 mL, Intravenous (Continuous Infusion), As Needed During Dialysis, Starting on 01/22/20 at 0800, Until Fri02/01/20 at 1850, Flush to maintain patency of system., To maintain dialysis circuit., Circuit Maintenance: To maintain dialysis circuit Linked Groups Order Group 1: HYDROcodone-acetaminophen (NORCO) 5-325 MG per tablet 1 tabletJump to med 1 tablet, Oral, Every 6 hours PRN, Starting on Susan 01/20/20 at 1820, Until Fri02/01/20 at 1850, moderate pain Or HYDROcodone-acetaminophen (LORCET PLUS) 10-325 MG per tablet 1 tabletJump to med 1 tablet, Oral, Every 6 hours PRN, Starting on Susan 01/20/20 at 1820, Until Fri02/01/20 at 1850, severe pain documented in this encounter
--- OUTSIDE RECORDS SUMMARY | 2024-04-25 21:21 | XMS_ITS | Encounter Summary ---
Author Organization [facility] Address [address] [place] [address] Care Team Providers Care Sales Service Executive Name Role Phone Kwame Berg MD Primary Care Provider [phone] Reason for Visit * Reason Comments Pain Hip BIZTALK ADMINISTRATOR/ Left hip Encounter Details Date Type Department Care Team (Latest Contact Info) Description 06/28/2019 10:10 AM PAID SEARCH ANALYST Office Visit [facility] [id number] [facility], [address] [address] [place] [id number] [address] Pain of left hip joint (Primary Dx); Primary osteoarthritis of left hip Social History Tobacco Use Types Packs/Day Years Used Date Smoking Tobacco: Never Assessed Sex and Gender Information Value Date Recorded Sex Assigned at Not on file Gender Identity Not on file Sexual Orientation Not on file documented as of this encounter Progress Notes * Dylon Agudelo MD - 06/28/2019 10:18 AM CST PATIENT NAME: Jules Mitchell CHIEF COMPLAINT: Chief Complaint Patient presents with ??? 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 The patient notes lateral, overgreater trochanter, anterior pain with loss of motion. The onset of these symptoms was not associated with trauma. Symptoms began a few months ago. The patient is using an assistive device to ambulate. The patient presents today for evaluation and management of this problem. PAST MEDICAL HISTORY: No past medical history on file. PAST SURGICAL HISTORY: No past surgical history on file. ALLERGIES: No Known Allergies SOCIAL HISTORY: Review of Systems A 10 point review of systems was performed via the patient questionnaire. The patient's responses were reviewed and signed by both the patient and myself. The questionnaire was scanned and entered into the clinical chart. Physical Exam: Examination reveals a healthy appearing male in no distress. The patient is alert and oriented withnormal mood and affect. The patient can ambulate with a antalgic gait. Vital Signs: There were no vitals taken for this visit. There is no height or weight on file to calculate BMI. The left hip has no tenderness. Range of motion is as follows: RANGE OF MOTION: RIGHT/LEFT: Forward Flexion: 90 / 85 Extension: 10 / 5 IR in Flexion: 15 / -5 ER in Flexion: 45 / 30 Abduction: 10 / 10 Sensation to light touch is intact in the bilateral lower extremities and pulses are palpable. Motor strength is 4/5 for hip flexion, 5/5 for hip extension, and 5/5 for abduction Patient has Positive Stinchfield, Positive log roll; patient does not have pain with resisted abduction. Patient has groin pain with passive internal rotation. Trendelenburg sign was Negative, MICHEL was Negative, SLR was Negative. Patient has full range of motion of the lumbar spine. X Ray: 2 views of the pelvis and left hip including AP Pelvis and frog leg lateral radiographs reveal end-stage osteoarthritis as evidenced by Full thickness loss of the joint space in the hip compartment(s) with osteophytes, subchondral sclerosis, and bony remodeling. Impression: 1. Left hip OA Plan: The patient has severe left hip arthritis. He would be a good candidate total hip arthroplasty however he has end-stage renal disease and is on hemodialysis. His most recent hematocrit in the computer is 8.5. He understands that this needs to come up above 10 before he will be a cane for surgery. Dellaamalia sent a note to his primary care doctor with this information on his surgical evaluation form. If need be he can be referred to the [facility]. Dylon Agudelo MD SEARCH ANALYST documented in this encounter Procedure Notes * Genoveva Espinoza - 06/28/2019 10:31 AM CSTAssociated Order(s): XR PELVIS 1 OR 2VW Please see progress notes for result. SEARCH ANALYST documented in this encounter Plan of Treatment Upcoming Encounters Date Type Department Care Team (Late st Contact Info) Description 08/23/2024 1:00 PM CDT Appointment [facility] [id number] [facility], [address] [place] [address] [place] [address] [facility] [address] [place] [id number] [place] [address] [facility] [address] [place], [place] [id number] documented as of this encounter Procedures Procedure Name Priority Date/Time Associated Diagnosis Comments XR PELVIS 1 OR 2VW Routine 06/28/2019 10 :30 AM PAID SEARCH ANALYST Pain of left hip joint documented in this encounter Results * XR PELVIS 1 OR 2VW (06/28/2019 10:30 AM PAID SEARCH ANALYST) Anatomical Region Laterality Modality Pelvis Computed Radiogr aphy Narrative 06/28/2019 10:31 AM PAID SEARCH ANALYST Genoveva Espinoza ? 06/29/2019 ??5:04 PM Please see progress notes for result. Dylon Agudelo MD DIAGNOSTIC IMAGING O RDERABLES documented in this encounter Visit Diagnoses Diagnosis Pain of left hip joint- Primary Primary osteoarthritis of left hip Primary localized osteoarthrosis, pelvic region and thigh Pain of left hip joint documented in this encounter Care Teams Sales Service Executive Relationship Specialty Start Date End Date Kwame Berg MD PCP - General Internal Medicine 01/19/19 documented as of this encounter
--- OUTSIDE RECORDS SUMMARY | 2024-04-25 21:21 | XMS_ITS | Encounter Summary ---
Author Organization [facility] Address [address] [place] [address] Care Team Providers Care Emergency Department Physician Name Role Phone Kwame Berg MD Primary Care Provider [phone] Encounter Details Date Type Department Care Team (Late st Contact Info) Description 05/11/2019 7:19 PM ENTRY LEVEL FINANCIAL ANALYST - 05/28/2019 11:56 AM [facility] Hospital Encounter [address] [address] Florencia Moulton MD [address] [place] [address] Rehabilitation Discharge Disposition: Home Health Care Svc Social History Tobacco Use Types Packs/Day Years Used Date Smoking Tobacco: Never Assessed Sex and Gender Information Value Date Recorded Sex Assigned at Not on file Gender Identity Not on file Sexual Orientation Not on file documented as of this encounter Medications at Time of Discharge Medication Sig Dispensed Refills Start Date End Date atorvastatin (LIPITOR) 20 MG tablet Take 1 (one) tablet by mouth at bedtime 0 01/19/2019 furosemide (LASIX) 80 MG tablet Take 1 (one) tablet by mouth 2 times daily 05/11/2019 cyclobenzaprine (FLEXERIL) 10 MG tablet TK 1 [...] mg by mouth once daily 03/24/2019 01/20/2020 oxyCODONE-acetaminophen (PERCOCET) 5-325 MG tablet Take 1 tablet by mouth every 6 hours as needed 05/28/2019 10/18/2019 tamsulosin (FLOMAX) 0.4 MG capsule Take 0.4 mg by mouth once daily 04/30/2019 10/18/2019 documented as of this encounter Plan of Treatment Upcoming Encounters Date Type Department Care Team (Late st Contact Info) Description 08/23/2024 1:00 PM CDT Appointment [facility] Vascular Services [address], [address] [place] [address] [place] [address] [facility] [address] [place] [id number] [place] [address] [facility] [address] [place] [address] documented as of this encounter Procedures Procedure Name Priority Date/Time Associated Diagnosis Comments CBC W AUTO DIFFERENTIAL AM Draw 05/26/2019 8:03 AM ENTRY LEVEL FINANCIAL ANALYST RENAL FUNCTION PANEL AM Draw 05/26/2019 8:03 AM ENTRY LEVEL FINANCIAL ANALYST documented in this encounter Results * (ABNORMAL) CBC W AUTO DIFFERENTIAL (05/26/2019 8:03 AM ENTRY LEVEL FINANCIAL ANALYST) WBC 4.8 4.4 - 10.7 x10E9/L 05/26/2019 8:16 AM ENTRY LEVEL FINANCIAL ANALYST [facility] WBC Corrected 05/26/2019 8:16 AM ENTRY LEVEL FINANCIAL ANALYST [facility] RBC 2.93(L) 3.80 - 5.40 x10E12/L 05/26/2019 8:16 AM ENTRY LEVEL FINANCIAL ANALYST [facility] Hemoglobin 9.2(L) 12.0 - 17.6 gm/dL 05/26/2019 8:16 AM ENTRY LEVEL FINANCIAL ANALYST [facility] Hematocrit 30.1(L) 35.2 - 51.7 % 05/26/2019 8:16 AM ENTRY LEVEL FINANCIAL ANALYST [facility] MCV 102.7(H) 80.7 - 98.3 fl 05/26/2019 8:16 AM [facility] MCH 31.4 26.7 - 34.0 pg 05/26/2019 8:16 AM [facility] MCHC 30.6(L) 30.8 - 35.9 gm/dL 05/26/2019 8:16 AM [facility] Platelet Count 233 153 - 416 x10E9/L 05/26/2019 8:16 AM [facility] RDW-CV 16.4(H) 12.1 - 14.9 % 05/26/2019 8:16 AM [facility] MPV 9.4 9.4 - 12.9 fl 05/26/2019 8:16 AM [facility] Neutrophils % 54.2 44.0 - 73.0 % 05/26/2019 8:16 AM [facility] Lymphocytes % 26.4 20.0 - 43.0 % 05/26/2019 8:16 AM [facility] Monocytes % 10.9 5.0 - 13.0 % 05/26/2019 8:16 AM [facility] Eosinophils % 4.6 0.0 - 6.0 % 05/26/2019 8:16 AM [facility] Basophils % 0.8 0.0 - 2.0 % 05/26/2019 8:16 AM [facility] Immature Granulocytes 3.1(H) 0 - 1 % 05/26/2019 8:16 AM [facility] Neutrophil Absolute 2.59 2.01 - 7.14 x10E9/L 05/26/2019 8:16 AM [facility] Lymphocytes Absolute 1.26 1.07 - 3.94 x10E9/L 05/26/2019 8:16 AM [facility] Monocytes Absolute 0.52 0.26 - 1.07 x10E9/L 05/26/2019 8:16 AM [facility] Eosinophils Absolute 0.22 0 - 0.47 x10E9/L 05/26/2019 8:16 AM [facility] Basophils Absolute 0.04 0 - 0.08 x10E9/L 05/26/2019 8:16 AM [facility] Immature Granulocytes Absolute 0.15(H) 0.00 - 0.06 x10E9/L 05/26/2019 8:16 AM [facility] nRBC Auto 1 /100 WBC 05/26/2019 8:16 AM [facility] Blood BLOOD SPECIMEN / Unknown Venipuncture / Unknown 05/26/2019 8:03 AM ENTRY LEVEL FINANCIAL ANALYST 05/26/2019 8:03 AM ENTRY LEVEL FINANCIAL ANALYST Naveen Blackman MD LAB - HEMATOLOGY ORD ERABLES [facility] [address] [place] [address] * (ABNORMAL) RENAL FUNCTION PANEL (05/26/2019 8:03 AM [facility]) [facility] Glucose 83 70 - 105 mg/dL 05/26/2019 8:28 AM [facility] Sodium 140 136 - 145 mmol/L 05/26/2019 8:28 AM [facility] Potassium 4.0 3.5 - 5.1 mmol/L 05/26/2019 8:28 AM [facility] Chloride 100 98 - 107 mmol/L 05/26/2019 8:28 AM [facility] CO2 29 23 - 31 mmol/L 05/26/2019 8:28 AM [facility] Calcium 8.5 8.4 - 10.4 mg/dL 05/26/2019 8:28 AM [facility] Anion Gap 11 8 - 16 mmol/L 05/26/2019 8:28 AM [facility] BUN 15 8.4 - 25.7 mg/dL 05/26/2019 8:28 AM [facility] Creatinine 3.48(H) 0.72 - 1.25 mg/dL 05/26/2019 8:28 AM [facility] Albumin 3.8 3.2 - 4.6 gm/dL 05/26/2019 8:28 AM [facility] Phosphorus 3.0 2.3 - 4.7 mg/dL 05/26/2019 8:28 AM [facility] eGFR by MDRD 17 mL/min/1.7 3m2 05/26/2019 8:28 AM [facility] eGFR by MDRD 21 mL/min/1.7 3m2 05/26/2019 8:28 AM [facility] Blood BLOOD SPECIMEN / Unknown Venipuncture / Unknown 05/26/2019 8:03 AM ENTRY LEVEL FINANCIAL ANALYST 05/26/2019 8:03 AM ENTRY LEVEL FINANCIAL ANALYST Naveen Blackman MD LAB - CHEMISTRY DELFINO VIDAL [facility] Organization Address City/State/ZIP Co de Phone Number [facility] [address] [place] [address] documented in this encounter Visit Diagnoses Not on filedocumented in this encounter Administered Medications Inactive Administered Medications - up to 3 most recent administrations Medication Order MAR Action Action Date Dose Rate Site epoetin ashly-EPBX (RETACRIT) injection 10,000 Units 10,000 Units, Intravenous, DIALYSIS EVERY TUE, CAL & SAT, First dose on Cal 05/13/19 at 1700, Until Discontinued, Do not shake vial. Do not shake vial. Refrigerate heparin injection 1,000 Units 1,000 Units, Intravenous, INTRA-PROCEDURE MULTIPLE, Starting on Fri05/12/19 at 1546, Until Fri05/28/19 at 1256, 1000 unit hourly heparin injection 2,000 Units 2,000 Units, Intravenous, PRE-PROCEDURE MULTIPLE, Starting on Fri05/12/19 at 1546, Until Fri05/28/19 at 1256, 2000 unit pre procedure bolus documented in this encounter Active and Recently Administered Medications Times are shown in ENTRY LEVEL FINANCIAL ANALYST. Scheduled Medication Order 05/26/2019 05/27/2019 05/28/2019 epoetin ashly-EPBX (RETACRIT) injection 10,000 Units 10,000 Units, Intravenous, DIALYSIS EVERY TUE, CAL & SAT, First dose on Cal 05/13/19 at 1700, Until Discontinued, Do not shake vial. Do not shake vial. Refrigerate 1700 (Due) heparin injection 1,000 Units 1,000 Units, Intravenous, INTRA-PROCEDURE MULTIPLE, Starting on Fri05/12/19 at 1546, Until Fri05/28/19 at 1256, 1000 unit hourly heparin injection 2,000 Units 2,000 Units, Intravenous, PRE-PROCEDURE MULTIPLE, Starting on Fri05/12/19 at 1546, Until Fri05/28/19 at 1256, 2000 unit pre procedure bolus documented in this encounter Care Teams Emergency Department Physician Relationship Specialty Start Date End Date Kwame Berg MD PCP - General Internal Medicine 01/19/19 documented as of this encounter
--- OUTSIDE RECORDS SUMMARY | 2024-04-25 21:21 | XMS_ITS | Encounter Summary ---
Author Organization [facility] Address [address] [place] [address] Care Team Providers Care Military Cook Name Role Phone Kwame Berg MD Primary Care Provider [phone] Reason for Referral * Radiology Services (Routine) - Closed Specialty Diagnoses / Procedures Referred By Contac t Referred To Contact Vascular Lab Diagnoses ESRD (end stage renal disease) (HCC) Procedures VAS BILAT MAPPING [place] [id number] [place] [phone] [facility] [address] [place] [address], [facility] [address] [place] [address] Referral ID Status Reason Start Date Expiration Date Visits Re quested Visits Authorized [id number] Closed 06/25/2019 12/22/2019 1 1 RAM OFFICER Encounter Details Date Type Department Care Team (Late Contact Info) Description 06/25/[address] [facility] - Surgery [address] [place] [address], [address] [address] [place] [address] [address] ESRD (end stage renal disease) (HCC) Social [...] [facility] Vascular Services [address] [address], [address] [place] [address] [place] [address] [place] [address] [place] [address] [address] [place] [address] documented as of this encounter Results * VAS BILAT MAPPING FOR HEMODIALYSIS (10/11/2019 10:38 AM CDT) Anatomical Region Laterality Modality Lower Extremity, Upper Extremity Ultrasound 10/11/2019 10:2 5 AM CDT Narrative Procedure Note Mario Iyer MD - 10/11/2019 [facility] Vascular [facility] [address] [address], [address] [place] [address] Vessel Mapping for Hemodialysis Report Pat.Name: VALERYFERDINAND Pat.ID: [id number] .Date: 10/11/2019 Refer.MD: NOÉ COELLO Exam Time: 10:25:00 AM Study Type:Vessel Mapping for Hemodialysis Age: 2 1945,74Y Sex: MALE Sonogrphr: [place] RVT Pat. Stat.:Outpatient ICD - 9: N18.6 End stage renal disease CPT - 4: 62505 Procedures: Vessel Mapping for Hemodialysis Race: 2 Visit ID: [id number] ++++++++++++++++++++++++++++++++++++ SUMMARY: ++++++++++++++++++++++++++++++++++++ The right upper basilic [...] disease documented in this encounter Care Teams Military Cook Relationship Specialty Start Date End Date Kwame Berg MD PCP - General Internal Medicine 01/19/19 documented as of this encounter
--- OUTSIDE RECORDS SUMMARY | 2024-04-25 21:21 | XMS_ITS | CONTINUITY OF CARE DOCUMENT ---
Author Name miriam pineda Address Unknown Organization [facility] Address [address] [place] [address] [address] [place] [address] Phone [phone] Care Team Providers Care Appraiser Land Name Role Phone Mayank Gaona MD Unavailable [phone] Mayank Gaona MD Unavailable [phone] INSURANCE PROVIDERS Payer name Policy type / Coverage type [place] [employer] ID [place] [employer] Medicare [id number] HEALTHCARE AND FAMILY SERVICES Medicaid 3 [id number]
--- OUTSIDE RECORDS SUMMARY | 2024-04-25 21:21 | XMS_ITS | Encounter Summary ---
Author Organization [facility] Address [address] [place] [address] Care Team Providers Care Bus And Trolley Inspecting Dispatcher Name Role Phone Kwame Berg MD Primary Care Provider [phone] Reason for Visit * Reason Onset Date Comments Appointment 07/16/2019 Encounter Details Date Type Department Care Team (Late Contact Info) Description 07/16/2019 Telephone [facility] Orthopedics [address] [address] [place] [facility] [address] [place] [address] [place] [address] [facility] [address] [place] [address] Appointment Social History Tobacco Use Types Packs/Day Years Used Date Smoking Tobacco: Never Assessed Sex and Gender Information Value Date Recorded Sex Assigned at Not on file Gender Identity Not on file Sexual Orientation Not on file documented as of this encounter Miscellaneous Notes * Telephone Encounter - Dominique Botello - 07/16/2019 10:43 AM CDT Left message with pt to make an appointment with Dr Velasquez, leather toggler, at [phone]. He needsto see Dr Velasquez for anemia. documented in this encounter Plan of Treatment Upcoming Encounters Date Type Department Care Team (Late Contact Info) Description 08/23/2024 1:00 PM CDT Appointment [facility] Vascular Services [address] [address], [address] [place] [address] [place] [address] [facility] [address] [place] [address] [place] [address] [facility] [address] [place] [address] documented as of this encounter Visit Diagnoses Not on filedocumented in this encounter Care Teams Bus And Trolley Inspecting Dispatcher Relationship Specialty Start Date End Date Kwame Berg MD PCP - General Internal Medicine 01/19/19 documented as of this encounter
--- OUTSIDE RECORDS SUMMARY | 2024-04-25 21:21 | XMS_ITS | Encounter Summary ---
Author Organization [facility] Address [address] [place] [address] Care Team Providers Care Telecommunications Equipment Installer Name Role Phone Kwame Berg MD Primary Care Provider [phone] Encounter Details Date Type Department Care Team (Late st Contact Info) Description 05/11/2019 7:19 PM VENEER GLUE SPREADER - 05/28/2019 12:06 PM VENEER GLUE SPREADER Hospital Encounter Formerly [facility] [id number] [place] [address] Florencia Moulton MD [address] [facility] [place] [phone] [place] [address] [facility] [place] [address] [facility] Direct Discharge Disposition: Home or Self [...] Info) Description 08/23/2024 1:00 PM CDT Appointment [facility] Vascular Services [address] [place] [address], [address] [address] [place] [id number] [place] [address] [address] [place] [address] [place] [address] [address] documented as of this encounter Procedures Procedure Name Priority Date/Time Associated Diagnosis Comments CBC W AUTO DIFFERENTIAL Routine 05/27/2019 7:13 PM VENEER GLUE SPREADER BASIC METABOLIC PANEL (CALCIUM TOTAL) Routine 05/27/2019 7:13 PM VENEER GLUE SPREADER XR PELVIS W BILAT HIP 2VW Routine 05/24/2019 4:45 PM VENEER GLUE SPREADER Pain of both hip joints CBC W/O DIFFERENTIAL Routine 05/22/2019 7:08 AM VENEER GLUE SPREADER BASIC METABOLIC PANEL (CALCIUM TOTAL) Routine 05/22/2019 7:08 AM VENEER GLUE SPREADER BASIC METABOLIC PANEL (CALCIUM TOTAL) Routine 05/20/2019 10:16 AM VENEER GLUE SPREADER CBC W/O DIFFERENTIAL Routine 05/18/2019 10:52 AM VENEER GLUE SPREADER BASIC METABOLIC PANEL (CALCIUM TOTAL) Routine 05/18/2019 10:52 AM VENEER GLUE SPREADER METHYLMALONIC ACID BLOOD Routine 05/15/2019 6:59 AM VENEER GLUE SPREADER CBC W/O DIFFERENTIAL Routine 05/15/2019 6:59 AM VENEER GLUE SPREADER BASIC METABOLIC PANEL (CALCIUM TOTAL) Routine 05/15/2019 6:59 AM VENEER GLUE SPREADER VITAMIN B12 Routine 05/15/2019 6:59 AM VENEER GLUE SPREADER HEPATITIS B SURFACE ANTIGEN W RFLX CONFIRMATION STAT 05/13/2019 3:40 PM VENEER GLUE SPREADER CBC W/O DIFFERENTIAL Routine 05/13/2019 5:00 AM VENEER GLUE SPREADER BASIC METABOLIC PANEL (CALCIUM TOTAL) Routine 05/13/2019 5:00 AM VENEER GLUE SPREADER HEPATIC FUNCTION PANEL Add on 0 5:00 AM VENEER GLUE SPREADER CBC W/O DIFFERENTIAL Routine 05/12/2019 5:30 AM VENEER GLUE SPREADER BASIC METABOLIC PANEL (CALCIUM TOTAL) Routine 05/12/2019 5:30 AM VENEER GLUE SPREADER documented in this encounter Results * (ABNORMAL) CBC W AUTO DIFFERENTIAL (05/27/2019 7:13 PM VENEER GLUE SPREADER) WBC 4.5 4.4 - 10.7 x10E9/L 05/27/2019 10:24 PM VENEER GLUE SPREADER [facility] WBC Corrected 05/27/2019 10:24 PM VENEER GLUE SPREADER [facility] RBC 2.72(L) 3.80 - 5.40 x10E12/L 05/27/2019 10:24 PM VENEER GLUE SPREADER [facility] Hemoglobin 8.5(L) 12.0 - 17.6 gm/dL 05/27/2019 10:24 PM VENEER GLUE SPREADER [facility] Hematocrit 28.2(L) 35.2 - 51.7 % 05/27/2019 10:24 PM VENEER GLUE SPREADER [facility] MCV 103.7(H) 80.7 - 98.3 fl 05/27/2019 10:24 PM [facility] MCH 31.3 26.7 - 34.0 pg 05/27/2019 10:24 PM [facility] MCHC 30.1(L) 30.8 - 35.9 gm/dL 05/27/2019 10:24 PM [facility] Platelet Count 215 153 - 416 [...] BLOOD SPECIMEN / Unknown 05/27/2019 7:13 PM VENEER GLUE SPREADER 05/27/2019 10:18 PM VENEER GLUE SPREADER Manoj Rodrigues Prince [employer] ASSEMBLER[employer]LLER CLEANER LAB - HEMATOLOGY ORDERABLES [facility] [address] [place] [address] * (ABNORMAL) BASIC METABOLIC PANEL (CALCIUM TOTAL) (05/27/2019 7:13 PM VENEER GLUE SPREADER) Pathologist [facility] Glucose 96 70 - 105 mg/dL 05/27/2019 10:41 PM [facility] Sodium 138 136 - 145 mmol/L 05/27/2019 10:41 PM [facility] Potassium 4.6 3.5 - 5.1 mmol/L 05/27/2019 10:41 PM [facility] Chloride 97(L) 98 - 107 mmol/L 05/27/2019 10:41 PM [facility] CO2 27 23 - 31 mmol/L 05/27/2019 10:41 PM [facility] Calcium 8.0(L) 8.4 - 10.4 mg/dL 05/27/2019 10:41 PM [facility] Anion Gap 14 8 - 16 mmol/L 05/27/2019 10:41 PM [facility] BUN 40(H) 8.4 - 25.7 mg/dL 05/27/2019 10:41 PM [facility] Creatinine 6.68(H) 0.72 - 1.25 mg/dL 05/27/2019 10:41 PM [facility] eGFR by MDRD 8 mL/min/1.7 3m2 05/27/2019 10:41 PM [facility] eGFR by MDRD 10 mL/min/1.7 3m2 05/27/2019 10:41 PM [facility] Blood BLOOD SPECIMEN / Unknown 05/27/2019 7:13 PM VENEER GLUE SPREADER 05/27/2019 10:18 PM VENEER GLUE SPREADER Florencia Moulton MD LAB - CHEMISTRY DELFINO VIDAL [facility] [address] [place] [id number] * XR PELVIS W BILAT HIP 2VW (05/24/2019 4:45 PM VENEER GLUE SPREADER) Anatomical Region Laterality Modality Pelvis, Lower Extremity [facility] 05/24/2019 5:22 PM VENEER GLUE SPREADER Narrative 05/24/2019 5:22 PM VENEER GLUE SPREADER 2 views right hip 2 views left hip AP pelvis INDICATION: Bilateral hip pain and pelvic pain. FINDINGS: Right hip: No acute fracture, malalignment, or degenerative disease. Left hip: Marked severe osteoarthrosis left hip joint with [id number] contact throughout the central, superior, superolateral portions [...] Marked severe osteoarthrosis left hip joint with [id number] contact throughout the central, superior, superolateral portions of the articulation. Subchondral sclerosis and cystic change femoral head and acetabulum. No acute fracture. AP pelvis: Anatomic alignment. No other sites of degenerative disease. No acute pathology. Reading Radiologist: Milana Rodríguez MD on 05/24/2019 at 5:22 PM Manoj Morrison DESK P[employer] ASSEMBLER-ROLLER CLEANER DIAGNOSTIC IMAGIN G ORDERABLES * (ABNORMAL) CBC W/O DIFFERENTIAL (05/22/2019 7:08 AM VENEER GLUE SPREADER) WBC 2.4(L) 4.4 - 10.7 x10E9/L 05/22/2019 8:05 PM VENEER GLUE SPREADER [facility] RBC 3.03(L) 3.80 - 5.40 x10E12/L 05/22/2019 8:05 PM VENEER GLUE SPREADER [facility] Hemoglobin 9.2(L) 12.0 - 17.6 gm/dL 05/22/2019 8:05 PM [facility] Hematocrit 29.9(L) 35.2 - 51.7 % 05/22/2019 8:05 PM [facility] MCV 98.7(H) 80.7 - 98.3 fl 05/22/2019 8:05 PM [facility] MCH 30.4 26.7 - 34.0 pg 05/22/2019 8:05 PM [facility] MCHC 30.8 30.8 - 35.9 gm/dL 05/22/2019 8:05 PM [facility] Platelet Count 209 153 - 416 x10E9/L 05/22/2019 8:05 PM [facility] RDW-CV 15.0(H) 12.1 - 14.9 % 05/22/2019 8:05 PM [facility] MPV 9.8 9.4 - 12.9 fl 05/22/2019 8:05 PM [facility] Blood BLOOD SPECIMEN / Unknown 05/22/2019 7:08 AM VENEER GLUE SPREADER 05/22/2019 8:01 PM VENEER GLUE SPREADER Manoj Morrison DESK [employer] ASSEMBLER[employer]ROLLER CLEANER LAB - HEMATOLOGY ORDERABLES [facility] [address] [place] [address] * (ABNORMAL) BASIC METABOLIC PANEL (CALCIUM TOTAL) (05/22/2019 7:08 AM VENEER GLUE SPREADER) Glucose 146(H) 70 - 105 mg/dL 05/22/2019 8:37 PM [facility] Sodium 135(L) 136 - 145 mmol/L 05/22/2019 8:37 PM [facility] Potassium 3.8 3.5 - 5.1 mmol/L 05/22/2019 8:37 PM [facility] Chloride 96(L) 98 - 107 mmol/L 05/22/2019 8:37 PM [facility] CO2 26 23 - 31 mmol/L 05/22/2019 8:37 PM [facility] Calcium 8.4 8.4 - 10.4 mg/dL 05/22/2019 8:37 PM [facility] Anion Gap 13 8 - 16 mmol/L 05/22/2019 8:37 PM [facility] BUN 42(H) 8.4 - 25.7 mg/dL 05/22/2019 8:37 PM [facility] Creatinine 6.41(H) 0.72 - 1.25 mg/dL 05/22/2019 8:37 PM [facility] eGFR by MDRD 9 mL/min/1.7 3m2 05/22/2019 8:37 PM [facility] eGFR by MDRD 10 mL/min/1.7 3m2 05/22/2019 8:37 PM [facility] Blood BLOOD SPECIMEN / Unknown 05/22/2019 7:08 AM VENEER GLUE SPREADER 05/22/2019 8:01 PM [facility] Naveen Blackman MD LAB - CHEMISTRY DELFINO VIDAL [facility] [address] [place] [address] * (ABNORMAL) BASIC METABOLIC PANEL (CALCIUM TOTAL) (05/20/2019 10:16 AM [facility]) Pathologist [facility] Glucose 105 70 - 105 mg/dL 05/20/2019 6:45 PM [facility] Sodium 137 136 - 145 mmol/L 05/20/2019 6:45 PM [facility] Potassium 5.6(H) 3.5 - 5.1 mmol/L 05/20/2019 6:45 PM [facility] Chloride 99 98 - 107 mmol/L 05/20/2019 6:45 PM [facility] CO2 23 23 - 31 mmol/L 05/20/2019 6:45 PM [facility] Calcium 8.6 8.4 - 10.4 mg/dL 05/20/2019 6:45 PM [facility] Anion Gap 15 8 - 16 mmol/L 05/20/2019 6:45 PM [facility] BUN 55(H) 8.4 - 25.7 mg/dL 05/20/2019 6:45 PM [facility] Creatinine 7.67(H) 0.72 - 1.25 mg/dL 05/20/2019 6:45 PM [facility] eGFR by MDRD 7 mL/min/1.7 3m2 05/20/2019 6:45 PM VENEER GLUE SPREADER [facility] eGFR by MDRD 8 mL/min/1.7 3m2 05/20/2019 6:45 PM [facility] Blood BLOOD SPECIMEN / Unknown Venipuncture / Unknown 05/20/2019 10:16 AM VENEER GLUE SPREADER 05/20/2019 6:21 PM VENEER GLUE SPREADER Naveen Blackman MD LAB - CHEMISTRY DELFINO VIDAL [facility] Organization Address City/State/ZIP Co de Phone Number [facility] [address] [place] [address] * (ABNORMAL) CBC W/O DIFFERENTIAL (05/18/2019 10:52 AM VENEER GLUE SPREADER) WBC 4.1(L) 4.4 - 10.7 x10E9/L 05/18/2019 5:54 PM VENEER GLUE SPREADER [facility] RBC 2.72(L) 3.80 - 5.40 x10E12/L 05/18/2019 5:54 PM [facility] Hemoglobin 8.1(L) 12.0 - 17.6 gm/dL 05/18/2019 5:54 PM [facility] Hematocrit 26.4(L) 35.2 - 51.7 % 05/18/2019 5:54 PM [facility] MCV 97.1 80.7 - 98.3 fl 05/18/2019 5:54 PM [facility] MCH 29.8 26.7 - 34.0 pg 05/18/2019 5:54 PM [facility] MCHC 30.7(L) 30.8 - 35.9 gm/dL 05/18/2019 5:54 PM [facility] Platelet Count 275 153 - 416 x10E9/L 05/18/2019 5:54 PM [facility] RDW-CV 13.9 12.1 - 14.9 % 05/18/2019 5:54 PM [facility] MPV 9.8 9.4 - 12.9 fl 05/18/2019 5:54 PM [facility] Blood BLOOD SPECIMEN / Unknown 05/18/2019 10:52 AM VENEER GLUE SPREADER 05/18/2019 5:49 PM VENEER GLUE SPREADER Manoj Morrison [employer] ASSEMBLER[employer]ROLLER CLEANER LAB - HEMATOLOGY ORDERABLES Performing Organization Address City/[facility]/ZIP Co de Phone Number [facility] [address] [place] [address] * (ABNORMAL) BASIC METABOLIC PANEL (CALCIUM TOTAL) (05/18/2019 10:52 AM VENEER GLUE SPREADER) Glucose 128(H) 70 - 105 mg/dL 05/18/2019 6:08 PM [facility] Sodium 134(L) 136 - 145 mmol/L 05/18/2019 6:08 PM [facility] Potassium 4.6 3.5 - 5.1 mmol/L 05/18/2019 6:08 PM [facility] Chloride 95(L) 98 - 107 mmol/L 05/18/2019 6:08 PM [facility] CO2 25 23 - 31 mmol/L 05/18/2019 6:08 PM [facility] Calcium 8.2(L) 8.4 - 10.4 mg/dL 05/18/2019 6:08 PM [facility] Anion Gap 14 8 - 16 mmol/L 05/18/2019 6:08 PM [facility] BUN 67(H) 8.4 - 25.7 mg/dL 05/18/2019 6:08 PM [facility] Creatinine 7.31(H) 0.72 - 1.25 mg/dL 05/18/2019 6:08 PM [facility] eGFR by MDRD 7 mL/min/1.7 3m2 05/18/2019 6:08 PM [facility] eGFR by MDRD 9 mL/min/1.7 3m2 05/18/2019 6:08 PM [facility] Blood BLOOD SPECIMEN / Unknown 05/18/2019 10:52 AM VENEER GLUE SPREADER 05/18/2019 5:49 PM VENEER GLUE SPREADER Naveen Blackman MD LAB - CHEMISTRY DELFINO VIDAL Performing Organization Address [facility]/ZIP Co de Phone Number [facility] [address] [place] [address] * (ABNORMAL) METHYLMALONIC ACID BLOOD (05/15/2019 6:59 AM VENEER GLUE SPREADER) Methylmalonic Acid 687(H) 0 - 378 nmol/L 05/20/2019 12:09 PM VENEER GLUE SPREADER [facility] ([facility]) Disclaimer Comment 05/20/2019 12:09 PM VENEER GLUE SPREADER [facility] ([facility]) Comment: This test was developed and its performance characteristics determined by [facility]. It has not been cleared or approved by the Food and Drug Administration. Blood BLOOD SPECIMEN / Unknown 05/15/2019 6:59 AM VENEER GLUE SPREADER 05/17/2019 12:23 PM VENEER GLUE SPREADER Narrative [facility] ([facility]) - 05/20/2019 12:09 PM VENEER GLUE SPREADER Performed at: ??01 - [address] ??[id number] Plastics Seasoner Operator: Loida Antonio MD, Phone: ??[phone] Florencia Moulton MD LAB - CHEMISTRY DELFINO VIDAL Performing Organization Address [facility]/ZIP Co de Phone Number [facility] [address] [place] [address] * VITAMIN B12 (05/15/2019 6:59 AM VENEER GLUE SPREADER) Vitamin B12 349 213 - 816 pg/mL 05/15/2019 11:45 AM VENEER GLUE SPREADER [facility] Blood BLOOD SPECIMEN / Unknown 05/15/2019 6:59 AM VENEER GLUE SPREADER 05/15/2019 10:58 AM VENEER GLUE SPREADER Florencia Moulton MD LAB - CHEMISTRY DELFINO VIDAL Performing Organization Address City/[facility]/ZIP Co de Phone Number [facility] [address] [place] [address] * (ABNORMAL) CBC W/O DIFFERENTIAL (05/15/2019 6:59 AM VENEER GLUE SPREADER) WBC 5.7 4.4 - 10.7 x10E9/L 05/15/2019 11:07 AM VENEER GLUE SPREADER [facility] RBC 2.65(L) 3.80 - 5.40 x10E12/L 05/15/2019 11:07 AM VENEER GLUE SPREADER [facility] Hemoglobin 7.9(L) 12.0 - 17.6 gm/dL 05/15/2019 11:07 AM VENEER GLUE SPREADER [facility] Hematocrit 26.1(L) 35.2 - 51.7 % 05/15/2019 11:07 AM [facility] MCV 98.5(H) 80.7 - 98.3 fl 05/15/2019 11:07 AM [facility] MCH 29.8 26.7 - 34.0 pg 05/15/2019 11:07 AM [facility] MCHC 30.3(L) 30.8 - 35.9 gm/dL 05/15/2019 11:07 AM [facility] Platelet Count 218 153 - 416 x10E9/L 05/15/2019 11:07 AM [facility] RDW-CV 13.5 12.1 - 14.9 % 05/15/2019 11:07 AM [facility] MPV 9.7 9.4 - 12.9 fl 05/15/2019 11:07 AM [facility] Blood BLOOD SPECIMEN / Unknown 05/15/2019 6:59 AM VENEER GLUE SPREADER 05/15/2019 10:58 AM [facility] Manoj Morrison [employer] ASSEMBLER[employer]ROLLER CLEANER LAB - HEMATOLOGY ORDERABLES [facility] [address] [place] [address] * (ABNORMAL) BASIC METABOLIC PANEL (CALCIUM TOTAL) (05/15/2019 6:59 AM [facility]) Glucose 131(H) 70 - 105 mg/dL 05/15/2019 11:17 AM [facility] Sodium 137 136 - 145 mmol/L 05/15/2019 11:17 AM [facility] Potassium 4.4 3.5 - 4.7 mmol/L 05/15/2019 11:17 AM [facility] Chloride 96(L) 98 - 107 mmol/L 05/15/2019 11:17 AM [facility] CO2 30 23 - 31 mmol/L 05/15/2019 11:17 AM [facility] Calcium 8.2(L) 8.4 - 10.4 mg/dL 05/15/2019 11:17 AM [facility] Anion Gap 11 8 - 16 mmol/L 05/15/2019 11:17 AM [facility] BUN 45(H) 8.4 - 25.7 mg/dL 05/15/2019 11:17 AM VENEER GLUE SPREADER [facility] Creatinine 6.77(H) 0.72 - 1.25 mg/dL 05/15/2019 11:17 AM VENEER GLUE SPREADER [facility] eGFR by MDRD 8 mL/min/1.7 3m2 05/15/2019 11:17 AM VENEER GLUE SPREADER [facility] eGFR by MDRD 10 mL/min/1.7 3m2 05/15/2019 11:17 AM VENEER GLUE SPREADER [facility] Blood BLOOD SPECIMEN / Unknown 05/15/2019 6:59 AM VENEER GLUE SPREADER 05/15/2019 10:58 AM VENEER GLUE SPREADER Naveen Blackman MD LAB - CHEMISTRY ORDJey VIDAL Performing Organization Address City/[facility]/ZIP Co de Phone Number [facility] [id number] [place] [address] [phone] * HEPATITIS B SURFACE ANTIGEN W RFLX CONFIRMATION (05/13/2019 3:40 PM VENEER GLUE SPREADER) Pathologist [facility] HBsAg Non Reactive Non Reactive 05/13/2019 7:10 PM VENEER GLUE SPREADER [facility] Blood BLOOD SPECIMEN / Unknown Venipuncture / Unknown 05/13/2019 3:40 PM VENEER GLUE SPREADER 05/13/2019 6:14 PM V[employer]ER GLUE SPREADER Naveen Blackman MD LAB - CHEMISTRY ORDJey VIDAL Performing Organization Address [facility] Co de Phone Number [facility] [id number] [place] [address] * HEPATIC FUNCTION PANEL (05/13/2019 5:00 AM VENEER GLUE SPREADER) Pathologist [facility] Alkaline Phosphatase 59 40 - 150 U/L 05/13/2019 5:49 PM VENEER GLUE SPREADER [facility] ALT 32 0 - 61 U/L 05/13/2019 5:49 PM VENEER GLUE SPREADER [facility] AST 16 5 - 34 U/L 05/13/2019 5:49 PM VENEER GLUE SPREADER [facility] Protein Total 6.4 6.4 - 8.3 gm/dL 05/13/2019 5:49 PM VENEER GLUE SPREADER [facility] Albumin 3.4 3.2 - 4.6 gm/dL 05/13/2019 5:49 PM VENEER GLUE SPREADER [facility] Bilirubin Total 0.3 0.2 - 1.2 mg/dL 05/13/2019 5:49 PM [facility] Bilirubin Direct 0.1 <=0.5 mg/dL 05/13/2019 5:49 PM [facility] Blood BLOOD SPECIMEN / Unknown Venipuncture / Unknown 05/13/2019 5:00 AM VENEER GLUE SPREADER 05/13/2019 5:32 PM V[employer]ER GLUE SPREADER Florencia Moulton MD LAB - CHEMISTRY DELFINO VIDAL [facility] Organization Address City/State/ZIP Co de Phone Number [facility] [address] [place] [address] * (ABNORMAL) BASIC METABOLIC PANEL (CALCIUM TOTAL) (05/13/2019 5:00 AM VENEER GLUE SPREADER) Glucose 121(H) 70 - 105 mg/dL 05/13/2019 7:21 AM [facility] Sodium 137 136 - 145 mmol/L 05/13/2019 7:21 AM [facility] Potassium 3.6 3.5 - 4.7 mmol/L 05/13/2019 7:21 AM [facility] Chloride 96(L) 98 - 107 mmol/L 05/13/2019 7:21 AM [facility] CO2 26 23 - 31 mmol/L 05/13/2019 7:21 AM [facility] Calcium 8.3(L) 8.4 - 10.4 mg/dL 05/13/2019 7:21 AM [facility] Anion Gap 15 8 - 16 mmol/L 05/13/2019 7:21 AM [facility] BUN 48(H) 8.4 - 25.7 mg/dL 05/13/2019 7:21 AM [facility] Comment:This result represen ts a significant difference from this patient's most recent previous value. Clinical correlation is therefore recommended. Creatinine 5.64(H) 0.72 - 1.25 mg/dL 05/13/2019 7:21 AM [facility] eGFR by MDRD 10 mL/min/1.7 3m2 05/13/2019 7:21 AM [facility] eGFR by MDRD 12 mL/min/1.7 3m2 05/13/2019 7:21 AM [facility] Blood BLOOD SPECIMEN / Unknown 05/13/2019 5:00 AM V[employer]ER GLUE SPREADER 05/13/2019 6:44 AM VENEER GLUE SPREADER Naveen Blackman MD LAB - CHEMISTRY DELFINO VIDAL Performing Organization Address City/[facility]/ZIP Co de Phone Number [facility] [address] [place] [address] * (ABNORMAL) CBC W/O DIFFERENTIAL (05/13/2019 5:00 AM VENEER GLUE SPREADER) [facility] WBC 5.9 4.4 - 10.7 x10E9/L 05/13/2019 6:56 AM VENEER GLUE SPREADER [facility] RBC 2.98(L) 3.80 - 5.40 x10E12/L 05/13/2019 6:56 AM [facility] Hemoglobin 8.8(L) 12.0 - 17.6 gm/dL 05/13/2019 6:56 AM [facility] Hematocrit 29.1(L) 35.2 - 51.7 % 05/13/2019 6:56 AM [facility] MCV 97.7 80.7 - 98.3 fl 05/13/2019 6:56 AM [facility] MCH 29.5 26.7 - 34.0 pg 05/13/2019 6:56 AM [facility] MCHC 30.2(L) 30.8 - 35.9 gm/dL 05/13/2019 6:56 AM [facility] Platelet Count 267 153 - 416 x10E9/L 05/13/2019 6:56 AM [facility] RDW-CV 13.6 12.1 - 14.9 % 05/13/2019 6:56 AM [facility] MPV 9.6 9.4 - 12.9 fl 05/13/2019 6:56 AM [facility] Blood BLOOD SPECIMEN / Unknown 05/13/2019 5:00 AM [employer] 05/13/2019 6:44 AM [employer] Misty Hathaway MD LAB - HEMATOLOGY ORD TESSIE Performing Organization Address [facility]/ZIP Co de Phone Number [facility] [address] [place] [address] * (ABNORMAL) CBC W/O DIFFERENTIAL (05/12/2019 5:30 AM [employer]) Pathologist [facility] WBC 6.6 4.4 - 10.7 x10E9/L 05/12/2019 7:00 AM [facility] RBC 3.19(L) 3.80 - 5.40 x10E12/L 05/12/2019 7:00 AM [facility] Hemoglobin 9.4(L) 12.0 - 17.6 gm/dL 05/12/2019 7:00 AM [facility] Hematocrit 31.2(L) 35.2 - 51.7 % 05/12/2019 7:00 AM [facility] MCV 97.8 80.7 - 98.3 fl 05/12/2019 7:00 AM [facility] MCH 29.5 26.7 - 34.0 pg 05/12/2019 7:00 AM [facility] MCHC 30.1(L) 30.8 - 35.9 gm/dL 05/12/2019 7:00 AM [facility] Platelet Count 273 153 - 416 x10E9/L 05/12/2019 7:00 AM [facility] RDW-CV 13.6 12.1 - 14.9 % 05/12/2019 7:00 AM [facility] MPV 9.9 9.4 - 12.9 fl 05/12/2019 7:00 AM [facility] Blood BLOOD SPECIMEN / Unknown Venipuncture / Unknown 05/12/2019 5:30 AM [employer] 05/12/2019 6:49 AM [facility] Misty Hathaway MD LAB - HEMATOLOGY ORD ERABLES [facility] [address] [place] [address] * (ABNORMAL) BASIC METABOLIC PANEL (CALCIUM TOTAL) (05/12/2019 5:30 AM [facility]) Pathologist [facility] Glucose 119(H) 70 - 105 mg/dL 05/12/2019 7:17 AM [facility] Sodium 139 136 - 145 mmol/L 05/12/2019 7:17 AM [facility] Potassium 3.9 3.5 - 4.7 mmol/L 05/12/2019 7:17 AM [facility] Chloride 95(L) 98 - 107 mmol/L 05/12/2019 7:17 AM [facility] [facility] CO2 29 23 - 31 mmol/L 05/12/2019 7:17 AM [facility] Calcium 8.9 8.4 - 10.4 mg/dL 05/12/2019 7:17 AM [facility] Anion Gap 15 8 - 16 mmol/L 05/12/2019 7:17 AM [facility] [employer] BUN 29(H) 8.4 - 25.7 mg/dL 05/12/2019 7:17 AM [facility] [employer] [facility] Creatinine 4.03(H) 0.72 - 1.25 mg/dL 05/12/2019 7:17 AM [facility] [employer] [facility] eGFR by MDRD 15 mL/min/1.7 3m2 05/12/2019 7:17 AM [facility] [employer] [facility] eGFR by MDRD 18 mL/min/1.7 3m2 05/12/2019 7:17 AM [facility] [employer] Blood BLOOD SPECIMEN / Unknown Venipuncture / Unknown 05/12/2019 5:30 AM [facility] 05/12/2019 6:48 AM [facility] [employer] [facility] Misty Hathaway MD LAB - CHEMISTRY DELFINO V[facility] Organization Address City/State/ZIP Co de Phone Number [facility] [address] [place] [address] documented in this encounter Visit Diagnoses Diagnosis Pain of both hip joints documented in this encounter Care Teams Telecommunications Equipment Installer Relationship Specialty Start Date End Date Kwame Berg MD PCP - General Internal Medicine 01/19/19 documented as of this encounter
--- OUTSIDE RECORDS SUMMARY | 2024-04-25 21:22 | XMS_ITS | Continuity of Care Document ---
Author Organization [facility] Address [address] [place] [address] Phone Care Team Providers Care Director Life Name Role Phone Martin Flores MD Unavailable Unavailable Procedures Procedure Date HYPERBARIC OXYGEN THERAPY HYPERBARIC OXYGEN THERAPY HYPERBARIC OXYGEN THERAPY HYPERBARIC OXYGEN THERAPY Advance Directives Directive Yes / No Effective Date File Name No Information Encounters Encounter Description Practice Location Reason(s) For Visit Diagnoses Date Provider Providers Copied on Encounter [facility], [address], [place], [place], [id number], [place] tel:[phone] Jacqu[facility] Obici No Information Mark Salazar. [address], [address] [place] [address]. tel:[phone] Referring Provider: Martin Flores, [address] [place] [address]. tel:[phone] [facility], [address], [place], [place], [id number], [place] tel:[phone] [facility] No Information Mark Salazar. [address], [facility], . tel:[phone] Referring Provider: Martin Flores, [address] [place] [address]. tel:[phone] [facility], [address], [place], [place], [id number], tel:[phone] [facility] No Information Mark Salazar. [address], [facility], . tel:[phone] Referring Provider: Martin Flores, [address], [facility]. tel:[phone] [facility], [address], [place], [place], [id number], tel:[phone] Jacqueline Abdullahi No Information Mark Salazar. [address], [facility], . tel:[phone] Referring Provider: Martin Flores, [address], [facility]. tel:[phone] Family History Family Member Type Diagnosis Age At Onset No Information Payers Payer name Insurance type Covered constitution party ID Authoranil harper(s) Medicare [id number] Medicaid [id number] Social History Type Description Quantity Date Captured Comments Sex Male Smoking Status No Information Chief Complaint And Reason For Visit No Information Reason For Referral Reason For Referral No Information History Of Present Illness Encounter Date Complaint History Of Prese nt Illness No Information Functional Status Date Functional Assessmen t No Information Instructions Date Instruction Additional Infor mation No Information Assessments Type Assessment Date No Information Patient Care Teams Name Effective Dates (start - stop) Status Members No Information
--- OUTSIDE RECORDS SUMMARY | 2024-04-25 21:22 | XMS_ITS | Patient Health Record ---
Author Organization [facility] Address [id number] [place] [address] [address] [place], [place] [id number] Care Team Providers Care Human Resources Clerk Name Role Phone Kwame Berg MD Primary Care Provider Naveen Marti Unavailable [phone] Reason For Referral No Information Medications Medication SIG (Take, Route, Frequency, Duration) Notes Start Date End Date Status Folic Acid 1 MG 1 tablet Orally Once a day Active Allopurinol 100 MG 1 tablet Orally Once a day Active DocQLace 100 MG 1 capsule as needed Orally Once a day Active Furosemide 20 MG 1 tablet Orally Once a day Active oxyBUTYnin Chloride 5 mg 1 tablet Orally Once a day for 90 Active Acetaminophen 325 MG 2 tablets Orally every 6 hrs prn for pain medication given at [facility] 04/29/19 Active MiraLax - 1 packet mixed with 8 ounces of fluid Orally Once a day Active Atenolol 25 MG 1 tablet Orally Once a day for 30 day(s) Active Donepezil HCl 10 MG Orally Once a day Active Tamsulosin HCl 0.4 MG 1 capsule Orally Once a day Active amLODIPine Besylate 10 MG 1 tablet Orally Once a day Active Atorvastatin Calcium 20 MG 1 tablet Orally Once a day Active Lisinopril 5 MG 1 tablet Orally Once a day for 90 days 05/11/2019 Active Cyclobenzaprine HCl 10 MG 1 tablet Orally 3 x a day prn for muscle pain medication given at [facility] 04/29/19 Active Social History Tobacco Use: Social History Observation Description Date Details (start date - stop date) Never Smoker NA - NA Smoking Question Answer Notes Are you a: never smoker Additional Findings: Tobacco Non-User Current no n-smoker Problems Problem Type SNOMED Code ICD Code Onset Dates Problem Status W/U Status Risk Notes Problem 29418984 End stage renal disease (N18.6) Active confirmed Problem 38905291 Other hyperlipidemia (E78.4) Active confirmed Problem 32826268 Essential hypertension (I10) Active confirmed Problem 705301167 Chronic kidney disease, stage III (moderate) (N18.3) Active confirmed Problem 323311798 CKD (chronic kidney disease) stage 4, GFR 15-29 ml/min (N18.4) Active confirmed most recent creatinine is upto 3.59, r/o YARELIS Problem 717160662 CKD (chronic kidney disease) stage 5, GFR less than 15 ml/min (N18.5) Active confirmed Problem 460008166 Dependence on renal dialysis (Z99.2) Active confirmed Problem 27276045 Other iron deficiency anemia (D50.8) Active confirmed Problem 54883684 Hypervolemia, unspecified hypervolemia type (E87.70) Active confirmed Problem 345505445 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 Problem 368385822 Diabetes 1.5, 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 Problem 164558821 Stage 3 chronic kidney disease (N18.3) Active confirmed Problem 78222993 Type 2 diabetes mellitus with diabetic nephropathy, 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) Active confirmed Plan Of Treatment Pending Test Test Name Order Date Renal US with bladder ultrasound with PV R 01/21/2019 ANCA PANEL 01/21/2019 *CBC (INCLUDES DIFF/PLT) 01/21/2019 *CBC (INCLUDES DIFF/PLT) 03/13/2017 *CBC (INCLUDES DIFF/PLT) 08/28/2017 *CBC (INCLUDES DIFF/PLT) 12/25/2017 *CBC (INCLUDES DIFF/PLT) 06/04/2018 *RENAL FUNCTION PANEL 06/04/2018 *RENAL FUNCTION PANEL 01/21/2019 *RENAL FUNCTION PANEL 12/25/2017 *RENAL FUNCTION PANEL 08/28/2017 *RENAL FUNCTION PANEL 03/13/2017 Urinalysis Reflex to Culture 03/13/2017 Urinalysis Reflex to Culture 01/21/2019 C3 01/21/2019 C4 01/21/2019 BIOPSY OF KIDNEY 04/01/2019 SOCO Ab Ql 01/21/2019 ESR 01/21/2019 Prot/Creat Ur Rnd 03/13/2017 Prot/Creat Ur Rnd 08/28/2017 Prot/Creat Ur Rnd 12/25/2017 PSA Diagnostic 01/21/2019 UPEP 04/01/2019 SPEP 04/01/2019 Insurance Providers Payer Name Payer Address Payer Phone Subscriber Number Group Number Insured Name Patient Relationship to Insured Coverage Start Date Coverage End Date [facility] [address] c/o Provider Services ALY Russo [id number] Jules Mitchell Self - patient is the insured
--- OUTSIDE RECORDS SUMMARY | 2024-04-25 21:22 | XMS_ITS | Clinical Summary ---
Author Organization Unknown Care Team Providers Care Theater Usher Name Role Phone GEOFFREY SPARKS, MELVIN Unavailable Unavailable ANANYA RN, MAN Unavailable Unavailable ARNAUD PATELN, DOREEN Unavailable Unavailable BETY PT, KOBI Unavailable Unavailable KAVAZOZAYRA SHEET PILE HAMMER OPERATOR, WENDY Unavailable Unavailable GABI OT, DOREEN Unavailable Unavailable SOSSAMON GIL/MCKENZIE, JOCE Unavailable Unavail able SIMON ST, AIDA Unavailable Unavailable ELI PT, KRISTEN Unavailable Unavailable Payers Payer Name Policy Type Policy Number Effective Date Expira tion Date MEDICARE.S.PDGM [id number] Problems Condition Name Condition Details Condition Category Status Onset Date Resolution Date Last Treatment Date Treating Clinician Comments AFTERCARE FOLLOWING JOINT REPLACEMENT SURGERY Active 01-11 00:00: 00 UNSP DEMENTIA, UNSP SEVERITY, WITHOUT BEH/PSYCH/MO OD/ANX Active 01-11 00:00: 00 HYP CHR KIDNEY DISEASE W STAGE 5 CHR KIDNEY DISEASE OR ESRD Active 01-11 00:00: 00 TYPE 2 DIABETES MELLITUS W DIABETIC CHRONIC KIDNEY DISEASE Active 01-11 00:00: 00 END STAGE RENAL DISEASE Active 01-11 00:00: 00 ANEMIA IN CHRONIC KIDNEY DISEASE Active 01-11 00:00: 00 GOUT DUE TO RENAL IMPAIRMENT, UNSPECIFIED SITE Active - 00:00: 00 UNSPECIFIED ATRIAL FIBRILLATION Active 1- 00:00: 00 HYPERLIPIDEM IA, UNSPECIFIED Active 1- 00:00: 00 RESTLESS LEGS SYNDROME Active 1- 00:00: 00 PRESENCE OF LEFT ARTIFICIAL HIP JOINT Active 01-11 00:00: 00 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 Ordering Clinician Indication Dosage Frequency Signature (SIG) Comments Components furosemide 80 mg tablet 01-17 00:00: 00 Yes [id number] 1 tablet 2 TIMES DAILY 1 tablet 2 TIMES DAILY (route: oral) Med Classific ation: Cardiovas cular Therapy Agents DOK 100 mg capsule 10-19 00:00: 00 02-01 00:00 :00 No [id number] Per instruc tions DAILY Per instructio ns DAILY (route: oral) Med Classific ation: Gastroint estinal Therapy Agents allopurinol 100 mg tablet 01-03 00:00: 00 Yes [id number] 1 tablet DAILY 1 tablet DAILY (route: oral) Med Classific ation: Gout and Hyperuric emia Therapy ropinirole 0.5 mg tablet 01-06 00:00: 00 Yes [id number] 1 tablet 3 TIMES A WEEK 1 tablet 3 TIMES A WEEK (route: oral) Med Classific ation: Central Nervous System Agents atorvastati n 20 mg tablet 10-19 00:00: 00 Yes [id number] 1 tablet DAILY 1 tablet DAILY (route: oral) Med Classific ation: Cardiovas cular Therapy Agents donepezil 10 mg tablet 10-19 00:00: 00 02-01 00:00 :00 No [id number] Per instruc tions EVERYDAY Per instructio ns EVERYDAY (route: oral) Med Classific ation: Cognitive Disorder Therapy amlodipine 5 mg tablet 17 00:00: 00 02-01 00:00 :00 No [id number] Per instruc tions DAILY Per instructio ns DAILY (route: oral) Med Classific ation: Cardiovas cular Therapy Agents tamsulosin 0.4 mg capsule 10-19 00:00: 00 Yes [id number] 1 capsule DAILY 1 capsule DAILY (route: oral) Med Classific ation: Genitouri nary Therapy sevelamer carbonate 800 mg tablet 01-16 00:00: 00 Yes [id number] 2 tablet 2 TIMES DAILY 2 tablet 2 TIMES DAILY (route: oral) Med Classific ation: Genitouri nary Therapy folic acid 1 mg tablet 01-09 00:00: 00 02-01 00:00 :00 No [id number] Per instruc tions EVERYDAY Per instructio ns EVERYDAY (route: oral) Med Classific ation: Electroly te Balance-N utritiona l Products apixaban 2.5 mg tablet 2019-04 00:00: 00 Yes [id number] 1 tablet 2 TIMES DAILY 1 tablet 2 TIMES DAILY (route: oral) Med Classific ation: Hematolog ical Agents diltiazem 120 mg tablet 2019-04 00:00: 00 Yes [id number] 1 tablet DAILY 1 tablet DAILY (route: oral) Med Classific ation: Cardiovas cular Therapy Agents hydrocodone 10 mg-acetamin ophen 325 mg tablet 2019-04 00:00: 00 Yes [id number] 1 tablet EVERY 6 HOURS 1 tablet EVERY 6 HOURS (route: oral) Med Classific ation: Analgesic , Anti-infl ammatory or Antipyret ic Vital Signs Vital Name Observation Time Observation Value Commen ts Temperature 2020-03-17 09:14:52.000 98.4 [degF] Temperature 2020-03-10 09:04:34.000 98.2 [degF] Temperature 2020-03-08 10:18:04.000 98.9 [degF] Temperature 2020-03-01 10:13:02.000 96.7 [degF] Temperature 2020-02-25 11:36:11.000 98 [degF] Temperature 2020-02-23 12:42:11.000 98.2 [degF] Temperature 2020-02-22 13:53:24.000 98.4 [degF] Temperature 2020-02-21 13:04:15.000 98.9 [degF] Temperature 2020-02-16 12:14:41.000 98.9 [degF] Temperature 2020-02-16 10:44:07.000 98.8 [degF] Temperature 2020-02-14 11:08:33.000 98.4 [degF] Temperature 2020-02-07 09:39:18.000 99 [degF] Temperature 2020-02-03 15:03:13.000 99 [degF] Temperature 2020-02-02 14:57:04.000 97 [degF] Height 2020-02-02 15:01:28.000 62 [in_us] Pulse 2020-03-17 09:15:03.000 64 /min Pulse 2020-03-10 09:04:42.000 64 /min Pulse 2020-03-08 10:18:11.000 67 /min Pulse 2020-03-01 10:13:13.000 94 /min Pulse 2020-02-25 11:36:32.000 73 /min Pulse 2020-02-23 12:42:20.000 60 /min Pulse 2020-02-22 13:53:34.000 64 /min Pulse 2020-02-21 13:04:26.000 60 /min Pulse 2020-02-16 12:15:08.000 68 /min Pulse 2020-02-16 10:44:17.000 66 /min Pulse 2020-02-14 11:08:41.000 68 /min Pulse 2020-02-07 09:39:42.000 65 /min Pulse 2020-02-03 15:03:49.000 63 /min Pulse 2020-02-02 14:59:06.000 68 /min O2 Saturation (%) 2020-03-17 09:15:10.000 98 % O2 Saturation (%) 2020-03-10 09:04:50.000 98 % O2 Saturation (%) 2020-03-08 10:18:38.000 99 % O2 Saturation (%) 2020-03-01 10:13:24.000 98 % O2 Saturation (%) 2020-02-25 11:39:34.000 98 % O2 Saturation (%) 2020-02-23 12:42:46.000 98 % O2 Saturation (%) 2020-02-22 13:54:14.000 99 % O2 Saturation (%) 2020-02-21 13:05:00.000 98 % O2 Saturation (%) 2020-02-16 12:15:31.000 98 % O2 Saturation (%) 2020-02-16 10:44:42.000 98 % O2 Saturation (%) 2020-02-14 11:09:10.000 98 % O2 Saturation (%) 2020-02-07 09:42:10.000 99 % O2 Saturation (%) 2020-02-03 15:04:07.000 98 % O2 Saturation (%) 2020-02-02 15:00:00.000 97 % Respirations 2020-03-17 09:13:39.000 18 /min Respirations 2020-03-10 09:04:24.000 18 /min Respirations 2020-03-08 10:18:17.000 18 /min Respirations 2020-03-01 10:13:18.000 18 /min Respirations 2020-02-25 11:36:37.000 18 /min Respirations 2020-02-23 12:42:26.000 18 /min Respirations 2020-02-22 13:53:43.000 18 /min Respirations 2020-02-21 13:04:32.000 18 /min Respirations 2020-02-16 12:15:14.000 18 /min Respirations 2020-02-16 10:23:30.000 18 /min Respirations 2020-02-14 11:08:47.000 18 /min Respirations 2020-02-07 09:58:31.000 20 /min Respirations 2020-02-07 09:38:22.000 20 /min Respirations 2020-02-03 15:05:36.000 20 /min Respirations 2020-02-02 14:59:12.000 18 /min Weight (lbs) 2020-02-22 13:54:21.000 128 [lb_av] Weight (lbs) 2020-02-02 15:01:21.000 132 [lb_av] Systolic Blood Pressure 2020-03-17 09:15:19.000 110 mm [Hg] Systolic Blood Pressure 2020-03-10 09:04:19.000 108 mm [Hg] Systolic Blood Pressure 2020-03-08 10:18:27.000 110 mm [Hg] Systolic Blood Pressure 2020-03-01 10:14:37.000 118 mm [Hg] Systolic Blood Pressure 2020-02-25 11:39:25.000 118 mm [Hg] Systolic Blood Pressure 2020-02-23 12:42:35.000 160 mm [Hg] Systolic Blood Pressure 2020-02-22 13:54:00.000 128 mm [Hg] Systolic Blood Pressure 2020-02-21 13:04:42.000 120 mm [Hg] Systolic Blood Pressure 2020-02-16 12:15:22.000 120 mm [Hg] Systolic Blood Pressure 2020-02-16 10:44:32.000 120 mm [Hg] Systolic Blood Pressure 2020-02-14 11:08:56.000 120 mm [Hg] Systolic Blood Pressure 2020-02-07 09:42:31.000 124 mm [Hg] Systolic Blood Pressure 2020-02-03 15:05:52.000 116 mm [Hg] Systolic Blood Pressure 2020-02-02 14:59:21.000 120 mm [Hg] Diastolic Blood Pressure 2020-03-17 09:15:19.000 60 mm [Hg] Diastolic Blood Pressure 2020-03-10 09:04:19.000 60 mm [Hg] Diastolic Blood Pressure 2020-03-08 10:18:27.000 60 mm [Hg] Diastolic Blood Pressure 2020-03-01 10:14:37.000 60 mm [Hg] Diastolic Blood Pressure 2020-02-25 11:39:25.000 60 mm [Hg] Diastolic Blood Pressure 2020-02-23 12:42:35.000 60 mm [Hg] Diastolic Blood Pressure 2020-02-22 13:54:00.000 60 mm [Hg] Diastolic Blood Pressure 2020-02-21 13:04:42.000 60 mm [Hg] Diastolic Blood Pressure 2020-02-16 12:15:22.000 60 mm [Hg] Diastolic Blood Pressure 2020-02-16 10:44:32.000 62 mm [Hg] Diastolic Blood Pressure 2020-02-14 11:08:56.000 60 mm [Hg] Diastolic Blood Pressure 2020-02-07 09:42:31.000 68 mm [Hg] Diastolic Blood Pressure 2020-02-03 15:05:52.000 66 mm [Hg] Diastolic Blood Pressure 2020-02-02 14:59:21.000 70 mm [Hg] Plan of Treatment Planned Activity Planned Date Details Comments Future Scheduled Test MEDICAL SO CIAL WORKER TO EVALUATE FOR SOCIAL WORK NEEDS. [code = CERTIFIED ETHICAL HACKER TO EVALUATE FOR SOCIAL WORK NEEDS.] Future Scheduled Test HOME [facility] H AGENCY MAY ACCEPT ORDERS FROM THE FOLLOWING PHYSICIANS: DR. CHARLES. [code = HOME HEALTH AGENCY MAY ACCEPT ORDERS FROM THE FOLLOWING PHYSICIANS: DR. CHARLES.] Future Scheduled Test SKILLED NU RSING TO EVALUATE FOR LONG-TERM NEEDS. [code = LONG-TERM TO EVALUATE FOR LONG-TERM NEEDS.] Future Scheduled Test OCCUPATION AL THERAPIST TO EVALUATE FOR OCCUPATIONAL THERAPY NEEDS. [code = OCCUPATIONAL THERAPIST TO EVALUATE FOR OCCUPATIONAL THERAPY NEEDS.] Future Scheduled Test PAIN MANAG EMENT (PT) [code = PAIN MANAGEMENT (PT)] Future Scheduled Test PHYSICAL T HERAPY TO INSTRUCT PATIENT/CAREGIVER ON RISK FOR HOSPITALIZATION, TEACH SIGNS AND SYMPTOMS THAT PUT PATIENT AT RISK, WHEN TO NOTIFY CLINICIAN OF COMPLICATIONS/DECLINE, AND WHEN TO CALL 911. PHYSICAL THERAPY TO INSTRUCT PATIENT/CAREGIVER ON: SIGNS AND SYMPTOMS TO BE ON ALERT FOR EARLY INTERVENTION, PRIOR TO NEEDING EMERGENCY SERVICES CALL US FIRST TO KEEP BUSINESS IMPROVEMENT MANAGER SYMPTOM REPORT FOR VISIBLE REFERENCE NOTIFY CLINICIAN/PHYSICIAN FOR DECLINE IN STATUS WHEN AND HOW TO CALL HOME HEALTH AGENCY FACILITATE PHYSICIAN FOLLOW UP APPOINTMENT IDENTIFY SOCIOECONOMIC CONCERNS AND MAKE APPROPRIATE REFERRAL NEEDED IDENTIFY PATIENT GOALS FOR STAYING OUT OF THE HOSPITAL: [code = PHYSICAL THERAPY TO INSTRUCT PATIENT/CAREGIVER ON RISK FOR HOSPITALIZATION, TEACH SIGNS AND SYMPTOMS THAT PUT PATIENT AT RISK, WHEN TO NOTIFY CLINICIAN OF COMPLICATIONS/DECLINE, AND WHEN TO CALL 911. PHYSICAL THERAPY TO INSTRUCT PATIENT/CAREGIVER ON: SIGNS AND SYMPTOMS TO BE ON ALERT FOR EARLY INTERVENTION, PRIOR TO NEEDING EMERGENCY SERVICES CALL US FIRST TO KEEP BUSINESS IMPROVEMENT MANAGER SYMPTOM REPORT FOR VISIBLE REFERENCE NOTIFY CLINICIAN/PHYSICIAN FOR DECLINE IN STATUS WHEN AND HOW TO CALL HOME HEALTH AGENCY FACILITATE PHYSICIAN FOLLOW UP APPOINTMENT IDENTIFY SOCIOECONOMIC CONCERNS AND MAKE APPROPRIATE REFERRAL NEEDED IDENTIFY PATIENT GOALS FOR STAYING OUT OF THE HOSPITAL: ] Future Scheduled Test AGENCY MAY PERFORM A RESUMPTION OF CARE VISIT FOLLOWING ANY HOSPITAL ADMISSION. ALL DISCIPLINES (EXCEPT HORTICULTURAL SPECIALTY GROWER INSIDE) MAY PROVIDE TELEHEALTH PHONE/REMOTE/VIRTUAL VISITS IN LIEU OF AN IN-PERSON VISIT THAT DOES NOT REQUIRE HANDS ON OR IN PERSON ASSESSMENT WHEN AN IN-PERSON VISIT IS NOT POSSIBLE DUE TO THE PUBLIC HEALTH EMERGENCY RELATED TO THE COVID-19 PANDEMIC. PHYSICAL THERAPY TO EVALUATE, ASSESS AND MONITOR, PROVIDE SKILLED THERAPEUTIC INTERVENTION, ACTIVITY, EDUCATION, AND TRAINING TO ADDRESS: DECREASED BALANCE, GAIT, TRANSFERS AND STRENGTH [code = AGENCY MAY PERFORM A RESUMPTION OF CARE VISIT FOLLOWING ANY HOSPITAL ADMISSION. ALL DISCIPLINES (EXCEPT HORTICULTURAL SPECIALTY GROWER INSIDE) MAY PROVIDE TELEHEALTH PHONE/REMOTE/VIRTUAL VISITS IN LIEU OF AN IN-PERSON VISIT THAT DOES NOT REQUIRE HANDS ON OR IN PERSON ASSESSMENT WHEN AN IN-PERSON VISIT IS NOT POSSIBLE DUE TO THE PUBLIC HEALTH EMERGENCY RELATED TO THE COVID-19 PANDEMIC. PHYSICAL THERAPY TO EVALUATE, ASSESS AND MONITOR, PROVIDE SKILLED THERAPEUTIC INTERVENTION, ACTIVITY, EDUCATION, AND TRAINING TO ADDRESS: DECREASED BALANCE, GAIT, TRANSFERS AND STRENGTH] Future Scheduled Test TRANSFER T RAINING (PT) [code = TRANSFER TRAINING (PT)] Future Scheduled Test GAIT TRAIN ING (PT) [code = GAIT TRAINING (PT)] Future Scheduled Test NEUROMUSCU LAR RE-EDUCATION / BALANCE RETRAINING (PT) [code = NEUROMUSCULAR RE-EDUCATION / BALANCE RETRAINING (PT)] Future Scheduled Test THERAPEUTI C EXERCISES (PT) [code = THERAPEUTIC EXERCISES (PT)] Future Scheduled Test DIABETES S ELF-MANAGEMENT (PT) [code = DIABETES SELF-MANAGEMENT (PT)] Future Scheduled Test HYPERTENSI ON SELF-MANAGEMENT (PT) [code = HYPERTENSION SELF-MANAGEMENT (PT)] Future Scheduled Test ORTHOPEDIC SURGICAL AFTERCARE (PT) MAY TEACH PATIENT APPLICATION OF CRYOTHERAPY FOR PAIN AND/OR SWELLING UP TO 20 MIN AT A TIME OVER INCISION/JOINT [code = ORTHOPEDIC SURGICAL AFTERCARE (PT) MAY TEACH PATIENT APPLICATION OF CRYOTHERAPY FOR PAIN AND/OR SWELLING UP TO 20 MIN AT A TIME OVER INCISION/JOINT] Future Scheduled Test HIP REPLAC EMENT SELF-MANAGEMENT (PT) [code = HIP REPLACEMENT SELF-MANAGEMENT (PT)] Future Scheduled Test ANTICOAGUL ANT THERAPY - PHYSICAL THERAPY [code = ANTICOAGULANT THERAPY - PHYSICAL THERAPY ] Future Scheduled Test IDENTIFY F ALL RISK FACTORS AND ESTABLISH HOME EXERCISE PROGRAM TO MINIMIZE FALL RISK (PT) [code = IDENTIFY FALL RISK FACTORS AND ESTABLISH HOME EXERCISE PROGRAM TO MINIMIZE FALL RISK (PT)] Goal 2020-04-01 Patient Goal - P T STATES HE WANTS TO WALK BETTER. Goal Provider Goal - Goal Provider Goal - ADDITIONAL ORDERS WILL BE RECEIVED FROM ALTERNATE PHYSICIAN IN A TIMELY MANNER. Goal Provider Goal - Goal Provider Goal - Goal Provider Goal - PT GOAL: PATIENT/CAREGIVER WILL VERBALIZE UNDERSTANDING OF PAIN MANAGEMENT BY DISCHARGE. Goal Provider Goal - PATIENT/CAREGIVER WILL VERBALIZE UNDERSTANDING OF SIGNS AND SYMPTOMS THAT PUT THE PATIENT AT RISK FOR HOSPITALIZATION, WHEN TO NOTIFY THERAPIST/NURSE OF COMPLICATIONS/DECLINE AND WHEN TO CALL 911. Goal Provider Goal - Goal Provider Goal - PT STG: IMPROVE TRANSFERS TO SBA WITHIN 2 WEEKS PT LTG: PATIENT WILL DEMONSTRATE IMPROVED TRANSFERS FROM MIN ASSIST TO IND WITHIN 8 WEEKS. Goal Provider Goal - PT STG: IMPROVE GAIT TO SBA WITH W/WALKER 150 FT WITHIN 3 WEEKS PT LTG: PATIENT WILL DEMONSTRATE IMPROVED AMBULATION FROM MIN ASSIST TO IND WITH W/WALKER 300 FT WITHIN 8 WEEKS TO ACCESS COMMUNITY. PT LTG: PATIENT WILL DEMONSTRATE IMPROVED SAFETY NEGOTIATING STAIRS FROM UNABLE TO IND WITHIN 8 WEEKS WITH RAILING AND APPROPRIATE DEVICE. Goal Provider Goal - PT STG: IMPROVE BALANCE TO 1/4 ON MCTSIB WITHIN 3 WEEKS PT LTG: PATIENT WILL DEMONSTRATE REDUCED FALL RISK EVIDENCED BY TINETTI BALANCE IMPROVING FROM 1328 TO 2028 TO REDUCE FALL RISK WITHIN 8 WEEKKS. PT LTG: PATIENT WILL DEMONSTRATE REDUCED FALL RISK EVIDENCED BY TUG TEST (CUT SCORE >11 SECONDS INDICATES INCREASED FALL RISK) IMPROVING FROM 29.93 SEC TO 15 SEC WITHIN 8 WEEKS WITHIN 8 WEEKS. Goal Provider Goal - PT STG: IND HEP WITHIN 2 WEEKS PT LTG: PATIENT WILL DEMONSTRATE INCREASED STRENGTH OF BLE FROM 3-/5 TO 3+/5 WITHIN 8 WEEKS IN ORDER TO IMPROVE GAIT AND TRANSFERS. Goal Provider Goal - PATIENT/CAREGIVER WILL BE ABLE TO IDENTIFY SIGNS OF HYPER- AND HYPOGLYCEMIA AND VERBALIZE HOW TO MANAGE SYMPTOMS. Goal Provider Goal - PT GOAL: PATIENT/CAREGIVER WILL BE ABLE TO IDENTIFY SIGNS OF EXACERBATION OF HYPERTENSION AND WILL VERBALIZE/DEMONSTRATE AN ABILITY TO ADHERE TO HYPERTENSION SELF-MANAGEMENT AND LIFE-STYLE CHANGES AT DISCHARGE. Goal Provider Goal - PATIENT WILL DEMONSTRATE NORMAL HEALING FOLLOWING SURGERY WITH NO COMPLICATIONS BY DISCHARGE. Goal Provider Goal - PT GOAL: PATIENT WILL DEMONSTRATE OPTIMAL OUTCOMES INCLUDING INCREASED ROM AND STRENGTH WITH NO COMPLICATIONS FOLLOWING CARLOZ BY DISCHARGE. Goal Provider Goal - PT GOAL: PATIENT WILL NOT EXHIBIT SIGNS AND SYMPTOMS OF ANTICOAGULANT TOXICITY. Goal Provider Goal - PATIENT/CAREGIVER WILL DEMONSTRATE ADHERENCE TO FALL REDUCTION SELF MANAGEMENT TO MINIMIZE FALL RISK BY DISCHARGE. Reason for Visit INDEPENDENT IN THE COMMUNITY Encounters Start Date/Time End Date/Time Encounter Type Admission Type Attending [facility] Care Department Encounter ID Discharge Date Discharge Status Discharge Condition Discharge Reason Percent Goals Met 2020-02-02 00:00:00 2020-04-01 00:00:00 Outpatient NEW ADMISSION MAN [facility] [id number] 2020-04-01 00:00:00 DISCHARGE TO HOME OR SELF CARE INDEPENDEN T IN THE COMMUNITY HH ONLY - PER CLIENT REQUEST [phone]
--- OUTSIDE RECORDS SUMMARY | 2024-04-25 21:22 | XMS_ITS | Encounter Summary ---
Author Organization [facility] Address [address] [place] [address] Care Team Providers Care Manager Review Name Role Phone Unavailable Primary Care Provider Unavailabl e Reason for Referral * (Routine) - Closed Specialty Diagnoses / Procedures Referred By Vivienne burrell Referred To Contact Diagnoses Debility Anemia of chronic renal failure Chronic kidney disease, Stage V Essential hypertension Hyperkalemia Hypervolemia Malignant neoplasm of prostate Moderate malnutrition Other hyperlipidemia Other retention of urine Diastolic dysfunction Seroma <Initial> Abnormality of gait, not otherwise specified Toxic metabolic encephalopathy End stage renal failure on dialysis Other abnormal glucose Metabolic acidosis Latent autoimmune diabetes mellitus [place] [address] [place] [address] Phone: tel: fax: Referral ID Status Reason Start Date Expiration Date Visits Re quested Visits Authorized [id number] Closed 05/24/2019 11/20/2019 1 1 Question Answer DME Equipment Walker Walker Type: 2 Wheeled Walker - 5 inch wheels Duration of need: 99 months E TAGGER * (Routine) - Closed Specialty Diagnoses / Procedures Referred By Vivienne burrell Referred To Contact Diagnoses Debility Anemia of chronic renal failure Chronic kidney disease, Stage V Essential hypertension Hyperkalemia Hypervolemia Malignant neoplasm of prostate Moderate malnutrition Other hyperlipidemia Other retention of urine Diastolic dysfunction Seroma <Initial> Abnormality of gait, not otherwise specified Toxic metabolic encephalopathy End stage renal failure on dialysis Other abnormal glucose Metabolic acidosis Latent autoimmune diabetes mellitus [place] [address] [place] [address] Phone: tel: fax: Referral ID Status Reason Start Date Expiration Date V isits Requested Visits Authorized [id number] Closed Specialty Services Required 05/24/2019 11/20/2019 1 1 Question Answer Reason for Consult? weakness from hospitalization Anticipated Discharge Date 05/28/2019 Services: PT - eval and treat, OT - eval and treat Frequency: eval and treat Duration: eval and treat E TAGGER Encounter Details Date Type Department Care Team (Latest Contact Info) Description 05/11/2019 7:19 PM GLOVE TAGGER - 05/28/2019 12:06 PM GLOVE TAGGER Hospital Encounter [facility] [id number] [place] [id number] [place] [address] [place] [address] [place] [address] [place] [address] Debility (Primary Dx); Anemia of chronic renal failure; Chronic kidney disease, Stage V; Essential hypertension; Hyperkalemia; Hypervolemia; Malignant neoplasm of prostate; Moderate malnutrition; Other hyperlipidemia; Other retention of urine; Diastolic dysfunction; Seroma <Initial>; Abnormality of gait, not otherwise specified; Toxic metabolic encephalopathy; End stage renal failure on dialysis; Other abnormal glucose; Metabolic acidosis; Latent autoimmune diabetes mellitus in adult Discharge Disposition: Discharged Home/Self Care Social History [...] Sign Reading Time Taken Comments Blood Pressure 137/66 05/28/2019 7:30 AM GLOVE TAGGER Pulse 84 05/28/2019 7:30 AM GLOVE TAGGER Temperature 36.7 ??C (98 ??F) 05/27/2019 7:03 PM GLOVE TAGGER Respiratory Rate 18 05/28/2019 7:30 AM GLOVE TAGGER Oxygen Saturation 100% 05/28/2019 7:30 AM GLOVE TAGGER Inhaled Oxygen Concentration - - Weight 61.7 kg (136 lb) 05/27/2019 6:02 AM GLOVE TAGGER Height 177.8 cm (5' 10) 05/12/2019 5:04 AM GLOVE TAGGER Body Mass Index 19.51 05/12/2019 5:04 AM GLOVE TAGGER documented in this encounter Discharge Summaries * Manoj Morrison CORK COMPOUNDER - 05/28/2019 8:44 AM CST Hospitalist Discharge Summary REASON FOR ADMISSION: Patient [...] autoimmune diabetes mellitus in adult ??? Hyperglycemia ADMISSION DATE: 05/11/2019 DISCHARGE DATE: 05/28/19 HOSPITAL COURSE: ATTENDING PHYSICIAN Florencia Moulton MD ? CHIEF COMPLAINT Principal Problem: ?Debility Active Problems: ?Type 2 diabetes mellitus ?Anemia of chronic renal failure ?Chronic kidney disease, Stage V ?Essential hypertension ?Hyperkalemia ?Hypervolemia ?Malignant neoplasm of prostate ?Moderate malnutrition ?Other hyperlipidemia ?Retention of urine ?Diastolic dysfunction ?Seroma ?Abnormality of gait ?Toxic metabolic encephalopathy ? HISTORY OF PRESENT ILLNESS ?? The patient is a??73 y.o.??y/o male??with history of??f prostate cancer, DM, and HTN presents to the ED complaining of intermittent left leg pain since last week. he has left sided buttock pain that radiates down posterior aspect of leg to knee. ??Hx coagulopathy, Hx venous thromboembolism. Pt was in acute renal failure with volume overload. Seen by renal , initiated dialysis?? , ?? currently here for therapy Todays chief ??Complains gen weakness Left leg pain ?? Confused about details of history ?? Duration of problems- Intensity Type Associated symptoms Aggrevating/relieving factors ? History also obtained from review of patients previous acute hospitalization chart, current rehabilitation chart , discussion with family members in the room and discussion with nursing staff taking care of the patient. ? SUBJECTIVE 05/13 initial progress note The patient is being seen for follow-up of all current problems, BP, BS , HR, labs and strength. Follow up on pain, swallowing, bladder and bowel function. Patient denies any chest pain, palpitations, shortness of breath, cough, abdominal pain, nausea, vomiting, diarrhea or constipation. No overnight events. Denies pain. Pain controlled on meds prescribed. Bowel movement 05/10. Lactulose ordered. Refused last night suppository. Had bm today 05/13 bp low bp 103/61 DC norvasc - hold lisinopril x 2 days Has 800 ml urine output with current urine agents- DC ditropan per PMR. Bladder scan [phone] ml had to be straight cath 800 ml out PVR 600 ml Due for dialysis today followed by Dr Donato Case discussed with Dr. Moulton, physiatry. Minh burns added Liver enzymes OK Seen by Neuropsych Appetite good and states slept well. Patient participating with therapy and is doing well. No further needs expressed at this time. ?? 05/14 The patient is being seen for follow-up of all current problems, BP, BS , HR, labs and strength. Follow up on pain, swallowing, bladder and bowel function. Patient denies any chest pain, palpitations, shortness of breath, cough, abdominal pain, nausea, vomiting, diarrhea or constipation. No overnight events. 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 Pain controlled on meds prescribed. Bowel movement 05/13 x 2. Pt seen this am sitting up in chair working with [employer]. Discussed pt with Carlos. Walking 100 ft with therapy, eager for exercises today. Requesting topical agent for L knee pain- voltaren gel ordered. Lidocaine patch for L thigh pain- edema improved. 1500 ml off with dialysis yesterday- tolerated. PVR 238-242-303 ml, continue with PVR another day. Weight 130 lb Sugars stable 119-135 Afebrile. HR 60s bp 119/60, 108/62. sats 100 % RA Atenolol held today. Decrease lisinopril to 2.5 Appetite good and states slept well. Patient participating with therapy and is doing well. No further needs expressed at this time. ?? 05/15 The patient is being seen for follow-up of all current problems, BP, BS , HR, labs and strength. Follow up on pain, swallowing, bladder and bowel function. Patient denies any chest pain, palpitations, shortness of breath, cough, abdominal pain, nausea, vomiting, diarrhea or constipation. No overnight events. Denies pain. Pain controlled on meds prescribed. Pain better with lidocaine and voltaren gel. ??Bowel movement 05/13 bp soft this am- hold atenolol x 2 days Hold lasix and lisonopril DC atenolol- feels dizzy with therapy Notified Bandar Donato. Dc lisinopril, wants to continue lasix BID pvr 278 ml, 330-224. Has x 1 straigh cath last night with 300 ml out urine. No weight recorded this am Sugars [phone]- Dialysis today, BP still soft 90/51, HR 57-64. Holding atenolol x 2 days and held lasix and lisinopril this am. PVR 278 ml 330-224, was cath x 1 today with 300 ml out Appetite good and states slept well. Patient participating with therapy and is doing well. No further needs expressed at this time. ?? BP low still down to 80s On dialysis Called and D/W Dr Donato - continue lasix Since pt having good urine out put ?? DC Lisinopril AND CHIVO I ?? 05/16 The patient is being seen for follow-up of all current problems, BP, BS , HR, labs and strength. Follow up on pain, swallowing, bladder and bowel function. Patient denies any chest pain, palpitations, shortness of breath, cough, abdominal pain, nausea, vomiting, diarrhea or constipation. No overnight events. Denies pain. Pain controlled on meds prescribed. Bowel movement today. Pain better with patch. Has not taken percocet since 05/13 Afebrile. HR 90s-80 bp 102/63 sats 98% RA. Still off most BP meds-monitor. 2000 ml off with dialysis. PVR 122-159-0 ml. Weigth stable 128 lb. Pt seen sitting up in chair watching tv, L thigh edema down. Sugars [phone] Labs done 05/15. Appetite good and states slept well. Patient participating with therapy and is doing well. No further needs expressed at this time. ?? 05/17 Patient seen and evaluated on daily rounds. No overnight events reported. Patient has been participating with therapy and is doing well. Pt seen today sitting up in wheelchair. Pt denies pain at thistime, well controlled with current medications. Slept well and appetite good. Last BM yesterday, noissues. Voiding well. Continue dialysis. Patient denies any chest pain, palpitations, shortness of breath, cough, abdominal pain, nausea and vomiting, or constipation. BP 114/64 without BP meds, HR 64. BG stable. No other needs or concerns expressed at this time. ?? 05/18 Patient seen and evaluated on daily rounds. No overnight events reported. Patient has been participating with therapy and is doing well. Pt seen today sitting up in wheelchair. Pt denies pain at thistime, not requiring pain medications. Slept okay and appetite good. Last BM today, no issues. Voiding well. PVRs 127-234 ml. Patient denies any chest pain, palpitations, shortness of breath, cough, abdominal pain, nausea and vomiting, or constipation. BP 105/57, HR 67. BG stable. Anticipate dialysis with labs today. No other needs or concerns expressed at this time. ?? 05/19 Patient seen and evaluated on daily rounds. No overnight events reported. Patient has been participating with therapy and is doing well. Pt seen today sitting up in wheelchair. Pt denies pain at thistime, well controlled with current medications. Slept off and on and appetite good. Last BM today, no issues. Voiding well. PVR 190-195. Patient denies any chest pain, palpitations, shortness of breath, cough, abdominal pain, nausea and vomiting, or constipation. BP 90/49, HR 83. BG stable. Labs obtained yesterday, reviewed. No other needs or concerns expressed at this time. ?? 05/20 Patient seen and evaluated on daily rounds. No overnight events reported. Patient has been participating with therapy and is doing well. Pt seen today sitting up in wheelchair. Pt reports he was sorewith therapy, but denies pain at this time, well controlled with current medications. Slept well and appetite good, but his uneaten breakfast tray was taken while he was in therapy. Last BM yesterday, no issues. Voiding well. Dialysis today. Patient denies any chest pain, palpitations, shortness ofbreath, cough, abdominal pain, nausea and vomiting, or constipation. BP 109/64, HR 83. Labs to be obtained today with dialysis. BG stable. No other needs or concerns expressed at this time. ?? 05/21 Patient seen and evaluated on daily rounds. No overnight events reported. Patient has been participating with therapy and is doing well. Pt seen today sitting up in wheelchair. Pt denies pain at thistime, well controlled with current medications. Slept well and appetite good. Last BM yesterday, noissues. Voiding well. Patient denies any chest pain, palpitations, shortness of breath, cough, abdominal pain, nausea and vomiting, or constipation. BP 110/64, HR 79. BG stable. No other needs or concerns expressed at this time. ?? 05/22 Patient seen and evaluated on daily rounds. No overnight events reported. Patient has been participating with therapy and is doing well. Pt seen today sitting up in wheelchair. Pt reports he had painto left heel level 10/10 this morning but denies pain at this time, well controlled with current medications. Mild discoloration and bogginess to bilateral heels. Podus boots ordered and applied. Wound care to see. Pt's family member called and reports Dr Donato requested an MRI of the hip earlier this week. Pt denies hip pain at this time. Will follow up with Dr Donato on Friday concerning this. Slept well and appetite good. Last BM 2 days ago, no issues. Voiding well, dialysis today. Patient denie s any chest pain, palpitations, shortness of breath, cough, abdominal pain, nausea and vomiting, orconstipation. BP 127/65, HR 80. BG stable. No other needs or concerns expressed at this time. ?? 05/23 Patient seen and evaluated on daily rounds. No overnight events reported. Patient has been participating with therapy and is doing well. Pt seen today sitting up in wheelchair. Pt denies pain at thistime, well controlled with current medications. Podus boots in place. Slept well and appetite good.Last BM yesterday, no issues. Voiding well. Dialysis. Patient denies any chest pain, palpitations, shortness of breath, cough, abdominal pain, nausea and vomiting, or constipation. BP 120/92, HR 97. BG stable. No other needs or concerns expressed at this time. ?? 05/24 The patient is being seen for follow-up of all current problems, BP, BS , HR, labs and strength. Follow up on pain, swallowing, bladder and bowel function. Patient denies any chest pain, palpitations, shortness of breath, cough, abdominal pain, nausea, vomiting, diarrhea or constipation. No overnight events. + L hip pain. Pain controlled on meds prescribed. Bowel movement 05/23. Sugars [phone] Moulton, physiatry. Labs due tomorrow with dialysis. Afebrile. HR 77-90 sats 97% RA bp 112/58 Ordered Hip and Pelvis xrays Appetite good and states slept well. Patient participating with therapy and is doing well. No further needs expressed at this time. ?? 05/25 The patient is being seen for follow-up of all current problems, BP, BS , HR, labs and strength. Follow up on pain, swallowing, bladder and bowel function. Patient denies any chest pain, palpitations, shortness of breath, cough, abdominal pain, nausea, vomiting, diarrhea or constipation. No overnight events. Denies pain. Pain controlled on meds prescribed. Bowel movement 05/23 sugars 163-94 Hip and pelvis xrays from 05/24 noted Case discussed with Dr. Moulton, physiatry. 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 Notified SIMI winn that pt will need ortho follow up for severe L hip OA. Suggested Dr Bishop for follow up after DC. Appetite good and states slept well. Patient participating with therapy and is doing well. No further needs expressed at this time. ?? 05/26 The patient is being seen for follow-up of all current problems, BP, BS , HR, labs and strength. Follow up on pain, swallowing, bladder and bowel function. Patient denies any chest pain, palpitations, shortness of breath, cough, abdominal pain, nausea, vomiting, diarrhea or constipation. No overnight events. + stable L hip pain. Pain controlled on meds prescribed. Bowel movement 05/23. Add lactulose x 2 doses today. Afebrile. HR 75-84 bp 112/72 sats 96% RA Weight 136 lb Sugars [phone] Labs noted this am Case discussed with Dr. Moulton, physiatry. Appetite good and states slept well. Patient participating with therapy and is doing well. No further needs expressed at this time. ?? 05/27 The patient is being seen for follow-up of all current problems, BP, BS , HR, labs and strength. Follow up on pain, swallowing, bladder and bowel function. Patient denies any chest pain, palpitations, shortness of breath, cough, abdominal pain, nausea, vomiting, diarrhea or constipation. No overnight events. Denies pain. Pain controlled on meds prescribed. Bowel movement 05/26 Due for dialysis today Sugars stable Due for DC to home tomorrow Case discussed with Dr. Moulton, physiatry. Afebrile, hr 80s bp 119/64 sats 99% RA Appetite good and states slept well. Patient participating with therapy and is doing well. No further needs expressed at this time. ?05/28 The patient is being seen for follow-up of all current problems, BP, BS , HR, labs and strength. Follow up on pain, swallowing, bladder and bowel function. Patient denies any chest pain, palpitations, shortness of breath, cough, abdominal pain, nausea, vomiting, diarrhea or constipation. No overnight events. Denies pain. Pain controlled on meds prescribed. Bowel movement 05/26. 1000ml off with dialysis yesterday. Pt due for discharge to home today. Follow up appt discussed and follow dr donato for HD??. Afebrile. HR 66-100. Bp 159/69, 105/65 sats 99% RA ?? REVIEW OF SYSTEMS General:??no weight loss, no fever, no chills, no anorexia Skin:??no rash Eyes:??no blurry vision Ears/Nose/Throat:??no nasal congestion, no sore throat Respiratory:??no cough, no dyspnea, no wheezing Cardiovascular:??no chest pain, no ankle swelling Gastrointestinal:??no nausea, no vomiting, no diarrhea, no constipation, no abdominal pain. No melena, no bright red blood per rectum Genitourinary:??no dysuria, no hematuria Musculoskeletal:??no joint pain, no myalgia, no muscle weakness Neurologic:??no seizures, no tremors, no fainting, no focal weakness , tingling or numbness Hematologic/Lymphatic:??no abnormal bleeding, no abnormal bruising Endocrine:??no heat or cold intolerance, no polydipsia, no polyuria Psychiatric:??no anxiety, no depression Allergy/Immunology:??no seasonal allergies, no joint stiffness in morning Review of ssytems pertinent as above and all the other 14 organ systems are negative ? CURRENT MEDICATIONS ?? Current Facility-Administered Medications: ??? acetaminophen (TYLENOL) tablet 325 mg, 325 mg, PO/Per Tube, Q6H PRN, Misty Hathaway MD, 325 mgat 05/11/192320 ??? allopurinol (ZYLOPRIM) tablet 100 mg, 100 mg, Oral, Once a day, Misty Hathaway MD, 100 mg at 05/27/19818 ??? atorvastatin (LIPITOR) tablet 20 mg, 20 mg, Oral, Once a day, Misty Hathaway MD, 20 mg at 05/27/19819 ??? bisacodyl (DULCOLAX) suppository 10 mg, 10 mg, Rectal, Once, Lucdawood Elliottl, CORK COMP[employer]ER ??? dextrose (GLUTOSE) 40 % oral gel 15 g, 15 g, Oral, PRN, Manoj Elliottl, CORK COMPOUNDER ??? dextrose 5 % and sodium chloride 0.45 % infusion, 50 mL/hr, Intravenous, PRN, Manoj Elliottl, CORK COMP[employer]ER ??? dextrose 50 % IV solution 25 g, 25 g, Intravenous, PRN, Luctashaa Sadl, CORK COMPOUNDER ??? Diclofenac Sodium (VOLTAREN) 1 % gel 2 g, 2 g, Topical, 2 times per day, Manoj Morrison, CORK COMPOUNDER, 2 g at 05/27/19 0824 ??? docusate sodium (COLACE) capsule 100 mg, 100 mg, Oral, Once a day, Misty Hathaway MD, 100 mg at 05/27/19819 ??? donepezil (ARICEPT) tablet 10 mg, 10 mg, Oral, Nightly, Misty Hathaway MD, 10 mg at 05/26/192045 ??? epoetin ashly-epbx (RETACRIT) 4,000 Units, 4,000 Units, Subcutaneous, T--Fri w/Dialysis, Froy Donato MD, 4,000 Units at 05/25/19 1758 ??? folic acid (FOLVITE) tablet 1 mg, 1 mg, Oral, Once a day, Misty Hathaway MD, 1 mg at 05/27/19 0820 ??? furosemide (LASIX) tablet 80 mg, 80 mg, Oral, BID DIURETIC, ALEIDA Phan, 80 mg at 05/27/19 0820 ??? glucagon (human recombinant) injection 1 mg, 1 mg, Intramuscular, PRN, Manoj Morrison NP ??? heparin (porcine) injection 1,000 Units, 1,000 Units, Intracatheter, Once per day on Fri, Debi Wetzel RN, 1,000 Units at 05/25/191935 ??? heparin (porcine) injection 1,000 Units, 1,000 Units, Intracatheter, Once per day on Fri [facility], Debi Wetzel RN, 1,000 Units at 05/25/191935 ??? heparin (porcine) injection 2,000 Units, 2,000 Units, Intravenous, During Dialysis, Debi Wetzel RN, 2,000 Units at 05/20/19 1130 ??? heparin (porcine) injection 4,300 Units, 4,300 Units, Intravenous, Once per day on Fri,Florencia Moulton MD, 4,300 Units at 05/25/19 1801 ? ? insulin lispro (HumaLOG) injection 0-6 Units, 0-6 Units, Subcutaneous, AC & HS, 2 Units at 05/16/19 1746 AND POCT glucose, , , AC & HS, Manoj Morrison, NEENA ??? iron sucrose (VENOFER) injection 200 mg, 200 mg, Intravenous, During Dialysis, Carmen Donato MD, 200 mg at 05/25/19 1804 ??? lidocaine (LIDOCARE) 4 % patch 2 patch, 2 patch, Transdermal, Once a day, Manoj Morrison NP, 2 patch at 05/27/19 0819 ??? MINERIN cream cream, , Topical, 2 times per day, Florencia Moulton MD ??? oxyCODONE-acetaminophen (PERCOCET) 5-325 MG 1 tablet, 1 tablet, Oral, Q6H PRN, Misty Hathaway MD, 1 tablet at 05/25/19 184 ??? polyethylene glycol (MIRALAX) packet 17 g, 17 g, Oral, Daily PRN, Mike Zamora MD, 17 g at 05/26/19 0601 ??? tamsulosin (FLOMAX) 24 hr capsule 0.4 mg, 0.4 mg, Oral, Nightly, Misty Hathaway MD, 0.4 mg at 05/26/192046 ? PHYSICAL EXAM ?? WEIGHTS??136 lb 1 oz (61.7 kg) ?? General appearance:??awake, alert, cooperative, no distress HEENT: Normocephalic, No icterus, No oral lesions, Oral and nasal mucosa moist Neck: Supple, no lymphadenopathy Eyes: ??EOMI, Conjunctiva normal, No discharge Cardiovascular:?s1-s2 audible, Normal heart rate, Normal rhythm, No murmurs, No rubs, No gallops Respiratory: ??Normal breath sounds, No respiratory distress, No wheezing, No rhonchi, No rales, Nochest tenderness. GI: ??Bowel sounds normal, Soft, No tenderness, No rebound or guarding, No masses. Abdomen: soft without mass, non-tender, with normal bowel sounds, External Genitalia??not examined, groin Extremities:??no clubbing, cyanosis or edema, no calf tenderness Musculoskeletal:no swelling of joints.no redness, FROM otherjoints Psychologic: Mood and affect appropriate, ??no suicidal ideation. Skin: No rash, swelling or erythema identified .??Warm and Dry, R chest dialysis cath with tegadermdressing clean dry and intact. Neurologic/WHITESMITH:Alert &??oriented x 2 confused at times, poor historian, Speech normal, Tongue and uvula central Strength is 4/5 in all extremities ?No clonus Gait not tested ? Please see height, weight, and BP reported elsewhere as part of this encounter ?? LABS CBC: Recent Labs Lab Units 05/22/19 0708 WBC X(10)9/L BLOOD x10E9/L 2.4* HGB GM/DL BLOOD gm/dL 9.2* PLT CT X(10)9/L BLOOD x10E9/L 209 MCV FL BLOOD fl 98.7* ?? BMP: Recent Labs Lab Units 05/22/19 0708 SODIUM MMOL/L BLOOD mmol/L 135* POTASSIUM MMOL/L BLOOD mmol/L 3.8 CHLORIDE mmol/L 96* CO2 mmol/L 26 BUN MG/DL BLOOD mg/dL 42* CREATININE mg/dL 6.41* GLUCOSE MG/DL BLOOD mg/dL 146* CALCIUM MG/DL BLOOD mg/dL 8.4 ? DATA Vitals Vitals: ?? 05/26/19 0730 05/26/19199905/27/19 0602 05/27/19 0730 BP: 139/64 137/62 ?? 119/64 Pulse: 88 74 ?? 85 Resp: 16 16 ?? 18 Temp: 98 ??F (36.7 ??C) 99.1 ??F (37.3 ??C) ?? 98.7 ??F (37.1 ??C) TempSrc: Oral Oral ?? Oral SpO2: 100% 100% ?? 99% Weight: ? 136 lb (61.7 kg) ?? Height: ? Weights (last 3 days) ?? Date/Time Weight ?? 05/27/19 0602 ?? 136 lb (61.7 kg) ?? 05/26/19 0617 ?? 136 lb (61.7 kg) ?? 05/24/19 0600 ?? 130 lb 8 oz (59.2 kg) ? @ANTICOAGSUMMARY@ @FLOWDATE(2706:LAST)@ ?? Intake/Output Summary (Last 24 hours) at 05/27/2019 1721 Last data filed at 05/27/2019 1245 Gross per 24 hour Intake 480 ml Output -- Net 480 ml ?? IMAGING STUDIES & OTHER STUDIES ??2 views right hip 2 views left hip AP pelvis ?? INDICATION: Bilateral hip pain and pelvic pain. ?? FINDINGS: Right hip: No acute fracture, malalignment, or degenerative disease. ?? Left hip: Marked severe osteoarthrosis left hip joint with [id number] contact throughout the central, superior, superolateral portions of the articulation. Subchondral sclerosis and cystic change femoral head and acetabulum. No acute fracture. ?? AP pelvis: Anatomic alignment. No other sites of degenerative disease. No acute pathology. ?? Reading Radiologist: Milana Rodríguez MD on 05/24/2019 at 5:22 PM ?? ASSESSMENT AND PLAN Principal Problem: Toxic metabolic encephalopathy Active Problems: Debility Anemia of chronic renal failure Chronic kidney disease, Stage V Essential hypertension Hyperkalemia Hypervolemia Malignant neoplasm of prostate Moderate malnutrition Other hyperlipidemia Retention of urine Diastolic dysfunction Seroma Abnormality of gait End stage renal failure on dialysis Hyperglycemia ??Debility Active Problems: ?Type 2 diabetes mellitus ?Anemia of chronic renal failure ?Chronic kidney disease, Stage V ?Essential hypertension ?Hyperkalemia ?Hypervolemia ?Malignant neoplasm of prostate ?Moderate malnutrition ?Other hyperlipidemia ?Retention of urine ?Diastolic dysfunction ?Seroma ?Abnormality of gait ?Toxic metabolic encephalopathy ??Acute renal failure, CKD LE edema ESRD,with volume overload, on dialysis now Renal consulted Echo done 04/29 Still on lasix 80 bid watch BP 05/[address] Donato, dialysis today 05/14 PVR 238-242-303 ml, continue with PVR another day. Weight 130 lb 05/15 bun 45 cr 6.77 05/18 bun 67, cr 7.31, on dialysis 05/19 ok to d/c PVRs 05/26 bun 15 cr 3.48 ?? Diastolic grade 1 heart failure Ef 60% per echo 04/29 Lasix, dialysis 05/14 weight 130 lb 05/16 wt 128 lb 05/20 wt 130 lb 05/23 wt 127 lb 05/24 wt 130 lb 05/27 wt 136 lb ?? 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 bp 108/60 DC atenolol HR 55-64 DC lisimopril 05/15 bp 90/51 05/16 bp 115/60, 102/63, 83/55, 127/83 hr 80-94 05/17 BP 114/64, stable at this time 05/26 BP 120/92, stable Hyperkalemia, ??related to the chronic kidney disease, on dialysis 05/13 k 3.6 05/15 k 4.4 05/18 K 4.6, stable at this time 05/26 k 4.0 ?? Hypocalcemia 05/15 ca 8.2 05/18 Ca 8.2, stable at this time 05/26 ca 8.5 ?? Gout allopurinol Metabolic acidosis ??from the renal failure, better with dialysis ??Anemia, most recent hemoglobin 8.7, , monitor H/H 05/13 h and h 8.8/ 29.1 05/15 h and h 7.9/ 26.1 Vit b 12 349 Epoetin per renal and IV venofer 05/18 H&H 8.1/26.4, stable at this time 05/22 h and h 9.2/ 29.9 05/26 h and h 9.2/30.1 ?? Altered sugars aacu, SSI 05/13 poct 121 05/14 poct 119-135 05/15 Sugars [phone] 05/16 Sugars [phone] 05/17 bg 112-173, stable at this time 05/21 poct 109-133 05/24 Sugars 113-138-106 05/25 sugars 163-94 05/26 sugars 102-126-101 05/27 poct 107-114-93 ? h/oProstate cancer Bladder management / hx of orchiectomy / urine retention in acutre Voiding ok Ditropan and flomax 05/13 had high volume PVR , dc ditropan. 05/16 PVR los volumes 122-159-0 ml last night 05/18 PVRs 127-234, will monitor 05/19 ok to d/c PVRs ?? Dementia/ cognitive impairment aricept neuropsych consult DVT prophylaxis: on Lovenox Minh hose ??Echo 1/4/20: Mild concentric left ventricular hypertrophy. Impaired diastolic relaxation Grade I. Ejection fraction is visually estimated at 60 %. There is mild enlargement of left atrium. Mild aortic valve regurgitation. ?? Pain management Today's pain score??0 05/13 percocet 6 q 6 prn, tylenol Lidocaine patch and voltaren 05/18 denies pain ?? Bowel management . Titrate bowel medications for constipation/diarrhea. 05/13 had bm 05/26 had bm, refused lactulose ?? Skin care 05/22 bilateral heels boggy and discolored, podus boots ordered and applied. Wound care to see. ?? Full Resuscitation ? 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 Hyperglycemia MEDICATIONS ON DISCHARGE: Jules Mitchell Home Medication Instructions SILVINO:[id number] Printed on:05/28/19 8812 Medication Information acetaminophen (TYLENOL) 325 MG tablet [...] total) by mouth nightly. Your medication list START taking these medications Last Dose Given Next Dose Due acetaminophen 325 MG tablet Instructions: 1 tablet (325 mg total) by PO/Per Tube route every 6 (six) hours as needed for mild pain (1 - 3) or Temp > or equal to 101F (38.3C). Commonly known as: TYLENOL Diclofenac Sodium 1 % gel Instructions: Apply 2 g topically 2 (two) times a day. Commonly known as: VOLTAREN lidocaine 4 % patch patch Instructions: Place 2 patches on the skin daily. Commonly known as: LIDOCARE rOPINIRole 0.5 MG tablet Instructions: Take 1 tablet (0.5 mg total) by mouth Three times per week with dialysis. Commonly known as: REQUIP Start taking on: May 29, 2019 CHANGE how you take these medications Last Dose Given Next Dose Due furosemide 80 MG tablet Instructions: Take 1 tablet (80 mg total) by mouth 2 (two) times a day diuretic. Commonly known as: LASIX What changed: when to take this tamsulosin 0.4 MG capsule Instructions: Take 1 capsule (0.4 mg total) by mouth nightly. Commonly known as: FLOMAX What changed: See the new instructions. CONTINUE taking these medications Last Dose Given Next Dose Due allopurinol 100 MG tablet Instructions: Take 1 tablet (100 mg total) by mouth daily. Commonly known as: ZYLOPRIM atorvastatin 20 MG tablet Instructions: Take 1 tablet (20 mg total) by mouth daily. Commonly known as: LIPITOR docusate sodium 100 MG capsule Instructions: Take 1 capsule (100 mg total) by mouth daily. Commonly known as: COLACE donepezil 10 MG tablet Instructions: Take 1 tablet (10 mg total) by mouth nightly. Commonly known as: ARICEPT folic acid 1 MG tablet Instructions: Take 1 tablet (1 mg total) by mouth daily. Commonly known as: FOLVITE oxyCODONE-acetaminophen 5-325 MG per tablet Instructions: Take 1 tablet by mouth every 6 (six) hours as needed for moderate pain (4 - 6). Max Daily Amount: 4 tablets Commonly known as: PERCOCET STOP taking these medications amLODIPine 5 MG tablet Commonly known as: NORVASC atenolol 25 MG tablet Commonly known as: TENORMIN lisinopril 5 MG tablet Commonly known as: PRINIVIL,ZESTRIL oxybutynin 5 MG tablet Commonly known as: DITROPAN Where to Get Your Medications These medications were sent to [id number] - [place], [place] - [address] [facility] [address] [facility] [id number] ?? allopurinol 100 MG tablet ?? atorvastatin 20 MG tablet ?? Diclofenac Sodium 1 % gel ?? donepezil 10 MG tablet ?? furosemide 80 MG tablet ?? lidocaine 4 % patch patch ?? oxyCODONE-acetaminophen 5-325 MG per tablet ?? rOPINIRole 0.5 MG tablet ?? tamsulosin 0.4 MG capsule You can get these medications from any pharmacy You don't need a prescription for these medications ?? acetaminophen 325 MG tablet ?? docusate sodium 100 MG capsule ?? folic acid 1 MG tablet DISCHARGE ORDERS .avs .avs VITAL SIGNS (Retired) Vitals (last 3 days) Date/Time Temp Pulse Resp BP SpO2 Weight 05/27/19 2336 -- 87 16 105/65 -- -- 05/27/19 2320 -- 79 16 130/64 -- -- 05/27/19 2307 -- 99 16 122/71 -- -- 05/27/19 2247 -- 98 16 130/69 -- -- 05/27/19 2227 -- 83 16 97/71 -- -- 05/27/19 2207 -- 85 14 105/65 -- -- 05/27/19 2147 -- 83 18 93/66 -- -- 05/27/19 2127 -- 78 18 128/65 -- -- 05/27/19 2109 -- 87 16 102/86 -- -- 05/27/192046 -- 77 16 121/63 -- -- 05/27/192027 -- 89 16 134/68 -- -- 05/27/192006 -- 76 16 101/64 -- -- 05/27/191946 -- 71 16 107/64 -- -- 05/27/191926 -- 67 18 118/63 -- -- 05/27/191919 -- 66 16 128/65 -- -- 05/27/19 1903 98 ??F (36.7 ??C) 73 18 102/70 -- -- 05/27/191699 -- 74 -- (!) 159/69 -- -- 05/27/19 07 98.7 ??F (37.1 ??C) 85 18 119/64 99 % -- 05/27/19 0602 -- -- -- -- -- 136 lb (61.7 kg) 05/26/191999 99.1 ??F (37.3 ??C) 74 16 137/62 100 % -- 05/26/19 07 98 ??F (36.7 ??C) 88 16 139/64 100 % -- 05/26/19 0617 -- -- -- -- -- 136 lb (61.7 kg) 05/25/19729 97.3 ??F (36.3 ??C) 75 18 112/72 96 % -- EXAM ON DAY ON DISCHARGE Unchanged from before MS and neuro exam unchanged from [facility]- S1, S2 heard Lungs clear to auscultation bilaterally Abdomen soft non tender, BS heard Joints no swelling DIET: As tolerated, per Pattern Drafter recommendations Dietary Orders (From admission, onward) Start Ordered 05/13/19 1700 Diet message 3 times daily with meals Comments: Cut meats End/Expires: Until Specified 05/13/19 1352 05/13/19 1352 Adult Diet Therapeutic Diet; Renal with dialysis, Carb Controlled; 5 Carb/75gm/meal (2000 calories); Regular Texture (7 Regular); All Liquids (0 Thin) Diet effective now End/Expires: Until Specified Question Answer Comment Diet Type: Therapeutic Diet Therapeutic Diet: Renal with dialysis Therapeutic Diet: Carb Controlled Carbohydrate Controlled: 5 Carb/75gm/meal (2000 calories) Diet Texture: Regular Texture (7 Regular) Liquid Consistency All Liquids (0 Thin) Place order in third republican system. Done 05/13/19 1352 ACTIVITY:As tolerated per therapist and farm operator recommendations @ACTIVITY@ CONDITION AT TIME OF DISCHARGE: Stable RECOMMENDED FOLLOW-UP: With PCP IN 1-2 WEEKS CARMEN DONATO MD?? Nephrology [phone] [facility] [address] [facility] [address] Next Steps: Follow up in 1 week(s) Instructions: follow up with nephro and for dialysis [facility] [address] [place] [address] p. [phone] fx. [phone] Next Steps: Go on 05/29/2019 Instructions: Friday, , Friday Chair time at 7:45AM Tara Bishop MD, MD?? Orthopedic Surgery [phone] [facility] [address] [facility] [address] [facility] [address] Next Steps: Follow up in 1 week(s) Instructions: left hip pain X ray severe DJD KWAME BERG MD?? Internal Medicine [phone] [facility] [place] [address] [facility] [address] Next Steps: Follow up in 1 week(s) Instructions: fu with pcp in one week of dc Discharge Destination: Own Home Primary Caregiver Post Discharge: Other (comment)(Nephew) Follow up with your PCP in 1week Follow Up CBC, BMP in 1week at PCP office Diet and exercise : Addition of 4 to 5 servings of fruits and vegetables would help to improve cardiovascular and cerebrovascular health. Also Fish is better that any meat and white meat is better than red meat. Baked or broiled will be better than fried food. Citizen [place] heart association recommends total of 2 and [...] broiled will be better than fried food. Citizen [place] heart association recommends total of 2 and [...] becomes fast or irregular,dizzy spells or blackouts. If you are on coumadin Keep track of when your next PT/INR blood draw is. ?consistent amount?? of foods with Vitamin K is important rather than avoidance. Avoid major changes in dietary habits, or notify health professional before changing habits. Check with physician before starting any new medication be it prescribed or over the counter and also when discontinuing any existing medication Wear a medic alert bracelet that says you are on a blood thinner Seek immediate medical attention if you suspect any internal or external bleed or trauma Physical Therapy: Discharge Summary PT Current Functional Status: Mr. Jules Mitchell'nolvia current functional mobility is as follows. TRANSFERS: Sit to and from stand with modified independence and increased time. Stand pivot transfer with modified independence and increased time. Car transfer with rigid leg hospital laboratory technician and modified independence with increased time. GAIT: Ambulates up to 276 feet with rolling walker and modified independence and increased time. Ambulates across uneven surface with rolling walker and distant supervision. ELEVATIONS Ascends/descends up to 12 steps at 6 inches each with 2 handrails and distant supervision and increased time to complete. Ascends/descends 6 [address] step. WHEELCHAIR ASSESSMENT: propels manual wheelchair 100 feet with moderate assistance prior to requiring total assistance for all remaining mobility ?? Standardized Assessment: 2 Minute Walk Test: 120 feet with rolling walker. Timed Up and Go: 57.1 seconds with rolling walker. ?? He presents with the below listed impairments. He is to discharge to home with follow up home health therapy services, where he would benefit from skilled rehabilitation services at this time in order to further improve upon the below listed impairments and prepare for return to prior level of function. RUE: Full weight-bearing LUE: Full weight-bearing RLE: Weight-bearing as tolerated LLE: Weight-bearing as tolerated Patient needs assistance with the following: Balance; Negotiating ramps or curbs; Negotiating stairs; Reaching; Rolling; Use of ambulatory device; Walking and/or mobility; Wheelchair management PT Elementary Education Tutor Goals: Care Score Legend 1 Dependent 2 Substantial/maximal assistance 3 Partial/moderate assistance 4 Supervision or touching assistance 5 Setup or clean-up assistance 6 Independent 7 Patient refused 9 N/A 10 Not attempted due to environmental limitations 88 Not attempted due to medical condition or safety concern Goal on Admission Admission Status Discharge Status Car Transfer Assistance Needed: Adaptive equipment, Physical assistance Physical Assistance Level: Less than 25% Comment: Unsafe to perform at this time. Reason if not Attempted: Safety concerns Car Transfer - CARE Score: 88 Car Transfer - CARE Score: 88 (05/12/19 1453 : Kylie Sanchez PT)Car Transfer - CARE Score: 6 (05/27/19 1034 : Kylie Sanchez PT) Walk 10 Feet Assistance Needed: Physical assistance, Adaptive equipment Physical Assistance Level: Total assistance Comment: Ambulates up to 6 feet with Total A (Mod A x 1 + close w/c follow) Reason if not Attempted: Safety concerns Walk 10 Feet - CARE Score: 88 Walk 10 Feet - CARE Score: 88 (05/12/19 1453 : Kylie Sanchez PT)Walk 10 Feet - CARE Score: 6 (05/27/19 1034 : Kylie Sanchez PT) Walk 50 Feet with Two Turns Assistance Needed: Adaptive equipment, Supervision Physical Assistance Level: No physical assistance Reason if not Attempted: Safety concerns Walk 50 Feet with Two Turns - CARE Score: 88 Walk 50 Feet with Two Turns - CARE Score: 88 (05/12/201353 : Kylie Sanchez PT) Walk 50 Feet with Two Turns - CARE Score: 6 (05/27/19 1034 : Kylie Sanchez PT) Walk 150 Feet Assistance Needed: Adaptive equipment, Supervision Physical Assistance Level: No physical assistance Comment: Ambulates up to 276 feet with Mod I using RW. Reason if not Attempted: Safety concerns Walk 150 Feet - CARE Score: 88 Walk 150 Feet - CARE Score: 88 (05/12/19 1453 : Kylie Sanchez PT) Walk 150 Feet - CARE Score: 6 (05/27/19 1034 : Kylie Sanchez PT) Walking 10 Feet on Uneven Surfaces Assistance Needed: Adaptive equipment, Supervision Physical Assistance Level: No physical assistance Comment: Unsafe to perform at this time. Reason if not Attempted: Safety concerns Walking 10 Feet on Uneven Surfaces - CARE Score: 88 Walking 10 Feet on Uneven Surfaces - CARE Score: 88 (05/12/191452 : Kylie Sanchez PT) Walking 10 Feet on Uneven Surfaces - CARE Score: 4 (05/27/191033 : Kylie Sanchez PT) 1 Step (Curb) Assistance Needed: Adaptive equipment, Physical assistance Physical Assistance Level: Less than 25% Comment: Up/down 4 steps at 6 inches each with B HR and Min A 1 Step (Curb) - CARE Score: 3 1 Step (Curb) - CARE Score: 3 (05/12/191452 : Kylie Sanchez PT)1 Step (Curb) - CARE Score: 4 (05/27/191033 : Kylie Sanchez PT) 4 Steps Assistance Needed: Adaptive equipment, Physical assistance Physical Assistance Level: Less than 25% Comment: Up/down 4 steps at 6 inches each with B HR and Min A 4 Steps - CARE Score: 3 4 Steps - CARE Score: 3 (05/12/191452 : Kylie Sanchez PT) 4 Steps - CARE Score: 4 (05/27/191033 : Kylie Sanchez PT) 12 Steps Assistance Needed: Adaptive equipment, Verbal cues, Incidental touching Physical Assistance Level: No physical assistance Comment: Up/down 12 steps at 6 inches each with B HR and Distant Sup. Reason if not Attempted: Safety concerns 12 Steps - CARE Score: 88 12 Steps - CARE Score: 88 (05/12/191452 : Kylie Sanchez PT) 12 Steps - CARE Score: 4 (05/27/191033 : Kylie Sanchez PT) Picking Up Object Assistance Needed: Adaptive equipment, Supervision Physical Assistance Level: No physical assistance Comment: Unsafe to perform at this time. Reason if not Attempted: Safety concerns Picking Up Object - CARE Score: 88 Picking Up Object - CARE Score: 88 (05/12/191452 : Kylie Sanchez PT) Picking Up Object - CARE Score: 6 (05/27/191033 : Kylie Sanchez PT) Wheel 50 Feet with Two Turns Assistance Needed: Adaptive equipment, Physical assistance Physical Assistance Level: Less than 25% Comment: Propels up to 54' with Min A prior to requiring total assistance for all remaining w/c propulsion. Wheel 50 Feet with Two Turns - CARE Score: 3 Type of Wheelchair/Scooter: Manual Wheel 50 Feet with Two Turns - CARE Score: 3 (05/12/19 1453 : Kylie Sanchez PT) Wheel 50 Feet with Two Turns - CARE Score: 3 (05/27/19 1034 : Kylie Sanchez PT) Wheel 150 Feet Assistance Needed: Adaptive equipment, Physical assistance Physical Assistance Level: 75% or more Comment: Propels up to 54' with Min A prior to requiring total assistance for all remaining w/c propulsion. Wheel 150 Feet - CARE Score: 2 Type of Wheelchair/Scooter: Manual Wheel 150 Feet - CARE Score: 2 (05/12/19 1453 : Kylie Sanchez PT) Wheel 150 Feet - CARE Score: 2 (05/27/19 1034 : Kylie Sanchez PT) PT Other Elementary Education Tutor Goals Most Recent Value Other PT Elementary Education Tutor Goals Other Goals - Elementary Education Tutor Elementary Education Tutor 1 Filed on: 05/12/2019 1459 Other Custodial Goal 1 Pt to perform 2MWT with a distance of at least 40 feet in order to demonstrate improved overall mobility. Filed on: 05/12/2019 145 Other Elementary Education Tutor Goal 1 Status Established Filed on: 05/12/2019 145 Expected Achievement Date 06/02/19 Filed on: 05/12/2019 145 Occupational Therapy Discharge Summary OT Current Functional Status: Jules Mitchell is completing the following: EATING: with modified independence ORAL HYGIENE:with modified independence TOILETING:with modified independence BATHING:with supervision UPPER BODY DRESSING:with setup assist/supervision LOWER BODY DRESSING:with setup assist/supervision FOOTWEAR:with setup assist/supervision ROLL RIGHT/LEFT:with supervision SIT TO LYING:with supervision for use of leg hospital laboratory technician LYING TO SIT:with supervision for use of leg hospital laboratory technician SIT TO STAND:with modified independence CHAIR/BED TO CHAIR TRANSFER:with modified independence TOILET TRANSFER:with modified independence Jules Mitchell is demonstrating progress with sit <> stand transfers, bed/chair transfers, toilet transfers and toileting. Jules Mitchell continues to present with impaired safety awareness, impaired cognition, impaired endurance, impaired standing balance and tolerance, limiting independence with ADLs and functional transfers. Jules Mitchell would benefit from continued OT in the home health setting to maximize safety/independence within the home during ADL's, IADL's, community access/mobility, and leisure pursuits. RUE: Full weight-bearing LUE: Full weight-bearing RLE: Weight-bearing as tolerated LLE: Weight-bearing as tolerated Patient needs assistance with the following: Activities of daily living; Vision; Sitting balance; Going out in the community; Use of bathroom equipment Prosthetic/Orthotic Required: No OT Custodial Goals: Care Score Legend 1 Dependent 2 Substantial/maximal assistance 3 Partial/moderate assistance 4 Supervision or touching assistance 5 Setup or clean-up assistance 6 Independent 7 Patient refused 9 N/A 10 Not attempted due to environmental limitations 88 Not attempted due to medical condition or safety concern Goal on Admission Admission Status Discharge Status Eating Assistance Needed: Independent Physical Assistance Level: No physical assistance Comment: Pt able to open all necessary items. Eating - CARE Score: 6 Eating - CARE Score: 6 (05/12/19 1141 : Carols Caba OT) Eating - CARE Score: 6 (05/27/19 1224 : Carlos Caba OT) Oral Hygiene Assistance Needed: Set-up / clean-up Physical Assistance Level: No physical assistance Comment: Unable to assess - pt does not have dentures available. Reason if not Attempted: Environmental limitations Oral Hygiene - CARE Score: 10 Oral Hygiene - CARE Score: 10 (05/12/19 1141 : Carlos Caba OT) Oral Hygiene - CARE Score: 6 (05/27/19 1224 : Carlos Caba OT) Toileting Hygiene Assistance Needed: Physical assistance Physical Assistance Level: 25%-49% Comment: Pt requires assist with 1/3 steps. Pt requires assist to doff clothing secondary to impaired balance. Pt able to don clothing following toileting and complete cruz-care with minimal assist for support during dynamic balance. Toileting Hygiene - CARE Score: 3 Toileting Hygiene - CARE Score: 3 (05/12/19 1141 : Carlos Caba OT) Toileting Hygiene - CARE Score: 6 (05/27/19 1224 : Carlos Caba OT) Shower/Bathe Self Assistance Needed: Physical assistance Physical Assistance Level: 25%-49% Comment: Pt requires assist with drying lower legs and buttocks. Pt requires minimal assist for standing balance while washing buttocks. Pt requires verbal cues for safety and increased time due to impaired functional endurance. Shower/Bathe Self - CARE Score: 3 Shower/Bathe Self - CARE Score: 3 (05/12/191140 : Carlos Caba OT) Shower/Bathe Self - CARE Score: 4 (05/27/191223 : Carlos Caba OT) Upper Body Dressing Assistance Needed: Set-up / clean-up Physical Assistance Level: No physical assistance Comment: Pt able to don/doff shirt with setup assistance. Upper Body Dressing - CARE Score: 5 Upper Body Dressing - CARE Score: 5 (05/12/191140 : Carlos Caba OT) Upper Body Dressing - CARE Score: 4 (05/27/191223 : Carlos Caba OT) Lower Body Dressing Assistance Needed: Physical assistance Physical Assistance Level: 50%-74% Comment: Pt able to thread LLE through pants and unthread pants. Pt requires assist with threading underwear and donning pants/underwear over hips. Lower Body Dressing - CARE Score: 2 Lower Body Dressing - CARE Score: 2 (05/12/191140 : Carlos Caba OT) Lower Body Dressing - CARE Score: 4 (05/27/191223 : Carlos Caba OT) Putting On/Taking Off Footwear Assistance Needed: Physical assistance Physical Assistance Level: 25%-49% Comment: Pt requires assist to doff L sock secondary to impaired functional reach. Pt able to doff R sock and don/doff R/L sock and shoe with increased time and CGA for adjustments. Putting On/Taking Off Footwear - CARE Score: 3 Putting On/Taking Off Footwear - CARE Score: 3 (05/12/191140 : Carlos Caba OT) Putting On/Taking Off Footwear - CARE Score: 4 (05/27/191223 : Carlos Caba OT) Roll Left and Right Assistance Needed: Physical assistance Physical Assistance Level: Less than 25% Comment: per PT report. Roll Left and Right - CARE Score: 3 Roll Left and Right - CARE Score: 3 (05/12/191140 : Carlos Caba OT) Roll Left and Right - CARE Score: 4 (05/27/191223 : Carlos Caba OT) Sit to Lying Assistance Needed: Physical assistance Physical Assistance Level: Less than 25% Comment: per PT report - to elevate LLE. Sit to Lying - CARE Score: 3 Sit to Lying - CARE Score: 3 (05/12/19 1141 : Carlos Caba OT) Sit to Lying - CARE Score: 4 (05/27/19 1224 : Carlos Caba OT) Lying to Sitting on Side of Bed Assistance Needed: Physical assistance Physical Assistance Level: Less than 25% Comment: per PT report to manuever LLE. Lying to Sitting on Side of Bed - CARE Score: 3 Lying to Sitting on Side of Bed - CARE Score: 3 (05/12/19 1141 : Carlos Caba OT) Lying to Sitting on Side of Bed - CARE Score: 4 (05/27/19 1224 : Carlos Caba OT) Sit to Stand Assistance Needed: Physical assistance Physical Assistance Level: Less than 25% Comment: Pt requires minimal assist for sit <> stand from wheelchair with hand held assist and min assist for force production to achieve upright standing. Sit to Stand - CARE Score: 3 Sit to Stand - CARE Score: 3 (05/12/19 1141 : Carlos Caba OT) Sit to Stand - CARE Score: 6 (05/27/19 1224 : Carlos Caba OT) Chair/Wya-he-Osgpw Transfer Assistance Needed: Physical assistance Physical Assistance Level: Less than 25% Comment: Pt requires minimal assist for bed/chair transfer with hand held assist and min assist forforce production to achieve upright standing. Chair/Lsa-pv-Ihgjj Transfer - CARE Score: 3 Chair/Alc-lp-Cfjpf Transfer - CARE Score: 3 (05/12/19 1141 : Carlos Caba OT) Chair/Clv-ms-Pkjct Transfer - CARE Score: 6 (05/27/19 1224 : Carlos Caba OT) Toilet Transfer Assistance Needed: Physical assistance Physical Assistance Level: Less than 25% Comment: Pt requires hand held assist and steadying assist during transfer for safety due to impaired balance. 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 Vicente's current functional status is as follows: DIET: Regular with thin liquids. ??No dysphagia reported or suspected. Patient. Is edentulous and does not have dentures. Patient reports he is able to 'gum' any food he desires to eat without restrictions. COMPREHENSION: Supervision with basic daily needs - He benefited from repetition and slowed speech rate and understood statements regarding basic, routine issues EXPRESSION: Supervision. Patient communicates basic wants and needs and needs moderate to greater assist when discussing complex topics. Fair speech intelligibility with speech intelligibility being impaired due to fast rate and endentulous SOCIAL INTERACTION: Supervision - additional prompts for increased engagement, participation, eye contact PROBLEM SOLVING: Minimal assistance - Patient requires prompting or redirection to problem solve appropriately some of the time MEMORY: Minimal assistance - Patient presents with cognitive deficits in areas of recall and orientation requiring min cues. PROGRESS: Patient with improved basic attention, divergent naming, and simple problem solving improving from moderate assistance to min assistance. He improved intelligibility using compensatory strategies for dysarthria. Elementary Education Tutor Goals: Goal Discharge Status PULLING UNIT FLOORHAND Custodial Goal 1: Expression Level of Assistance to Meet Elementary Education Tutor Goal 1: Standby (less than 10%) PULLING UNIT FLOORHAND Custodial Goal 1 Details: Client will be 90% intelligible in conversation with an unfamiliar listener to improve speech intelligibility at home and in the community. PULLING UNIT FLOORHAND Custodial Goal 1 Expected Achievement Date: 05/26/19 PULLING UNIT FLOORHAND Custodial Goal 2: Additional Cognition Level of Assistance to Meet Elementary Education Tutor Goal 2: Standby (less than 10%) PULLING UNIT FLOORHAND Elementary Education Tutor Goal 2 Details: Patient will improve cognitive linguistic skills to function with Lisa at home and in the community. PULLING UNIT FLOORHAND Elementary Education Tutor Goal 2 Expected Achievement Date: 05/26/19 CC: No primary care provider on file. TIME SPENT ON DISCHARGE: more/less than 30 minutes Cosigned by Misty Hathaway MD at 06/04/2019 8:12 AM GLOVE TAGGER Associated attestation - Misty Hathaway MD - 06/04/2019 9:12 AM EST The patient is being seen for follow-up of all current problems, BP, BS , HR, labs and strength. Follow up on pain, swallowing, bladder and bowel function. Strength improving, able to do therapy ok. I saw, evaluated and examined the patient face to face in conjunction with the CORK COMPOUNDER and agree with the management and disposition of the patient. History also obtained from Nurse and staff about how the patient did overnight and during the day. I performed mario portions of the follow up history, examination, review of labs and radiology and evaluation. I agree with the subjective, physical exam and assessment and plan details as outlined in the note below. Discussed the mario medical decision making- both assessment and plan, rehabilitation goals and treatment plan with patient, CORK COMPOUNDER , nursing staff, farm operator and the members of the team. documented in this encounter Discharge Instructions * Discharge Instructions* Florencia Moulton MD - 05/28/2019 11:25 AM GLOVE TAGGER Follow up with your PCP in 1week Follow Up CBC, BMP in 1week at PCP office Continue with dialysis Dr. Donato Follow up with [facility] for further therapies You will follow up with orthopedic surgery for your hip arthritis Diet and exercise : Addition of 4 to 5 servings of fruits and vegetables would help to improve cardiovascular and cerebrovascular health. Also Fish is better that any meat and white meat is better than red meat. Baked or broiled will be better than fried food. Citizen [place] heart association recommends total of 2 and [...] broiled will be better than fried food. Citizen [place] heart association recommends total of 2 and [...] becomes fast or irregular,dizzy spells or blackouts. If you are on coumadin Keep track of when your next PT/INR blood draw is. ?consistent amount?? of foods with Vitamin K is important rather than avoidance. Avoid major changes in dietary habits, or notify health professional before changing habits. Check with physician before starting any new medication be it prescribed or over the counter and also when discontinuing any existing medication Wear a medic alert bracelet that says you are on a blood thinner Seek immediate medical attention if you suspect any internal or external bleed or trauma documented in this encounter Medications at Time of Discharge acetaminophen (TYLENOL) 325 MG tablet 1 tablet (325 mg total) by PO/Per Tube route every 6 (six) hours as needed for mild pain (1 - 3) or Temp > or equal to 101F (38.3C). 0 05/28/2019 0 allopurinol (ZYLOPRIM) 100 MG tablet Take 1 tablet (100 mg total) by mouth daily. 30 tablet 05/28/2019 0 atorvastatin (LIPITOR) 20 MG tablet Take 1 tablet (20 mg total) by mouth daily. 30 tablet 05/28/2019 0 Diclofenac Sodium (VOLTAREN) 1 % gel Apply 2 g topically 2 (two) times a day. 100 g 05/28/2019 0 docusate sodium (COLACE) 100 MG capsule Take 1 capsule (100 mg total) by mouth daily. 0 05/28/2019 0 donepezil (ARICEPT) 10 MG tablet Take 1 tablet (10 mg total) by mouth nightly. 30 tablet 05/28/2019 0 folic acid (FOLVITE) 1 MG tablet Take 1 tablet (1 mg total) by mouth daily. 0 05/28/2019 0 furosemide (LASIX) 80 MG tablet Take 1 tablet (80 mg total) by mouth 2 (two) times a day diuretic. 60 tablet 05/28/2019 0 lidocaine (LIDOCARE) 4 % patch patch Place 2 patches on the skin daily. 60 patch 05/28/2019 0 oxyCODONE-acetam inophen (PERCOCET) 5-325 MG per tablet Take 1 tablet by mouth every 6 (six) hours as needed for moderate pain (4 - 6). Max Daily Amount: 4 tablets 20 tablet 05/28/2019 0 rOPINIRole (REQUIP) 0.5 MG tablet Take 1 tablet (0.5 mg total) by mouth Three times per week with dialysis. 30 tablet 05/29/2019 0 tamsulosin (FLOMAX) 0.4 MG capsule Take 1 capsule (0.4 mg total) by mouth nightly. 30 capsule 05/28/2019 0 documented as of this encounter Progress Notes * Florencia Moulton MD - 05/28/2019 9:35 AM CST Rehabilitation Physician Progress Note Patient Name: Jules Mitchell Age: 73 y.o. Patient's Primary Care Physician: Dr. Kwame Berg LOS: 17 DAYS This was a face to face visit with the patient Seen and examined today for rehab and medical issues related to debility with encephalopathy. 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 Donato on dialysis days Addressed with wmgavx-qxgprk-ywaqoc up planned with ORTHO surgery and DI Subjective Review of Systems Denies chest pain, dyspnea or nausea. Pain controlled PHYSICAL EXAM: (Retired) Vitals (last 3 days) Date/Time Temp Pulse Resp BP SpO2 Weight 05/27/19 2336 -- 87 16 105/65 -- -- 05/27/19 2320 -- 79 16 130/64 -- -- 05/27/19 2307 -- 99 16 122/71 -- -- 05/27/19 2247 -- 98 16 130/69 -- -- 05/27/19 2227 -- 83 16 97/71 -- -- 05/27/192206 -- 85 14 105/65 -- -- 05/27/192146 -- 83 18 93/66 -- -- 05/27/192126 -- 78 18 128/65 -- -- 05/27/192108 -- 87 16 102/86 -- -- 05/27/192046 -- 77 16 121/63 -- -- 05/27/192027 -- 89 16 134/68 -- -- 05/27/192006 -- 76 16 101/64 -- -- 05/27/191946 -- 71 16 107/64 -- -- 05/27/191926 -- 67 18 118/63 -- -- 05/27/191919 -- 66 16 128/65 -- -- 05/27/191902 98 ??F (36.7 ??C) 73 18 102/70 -- -- 05/27/191699 -- 74 -- (!) 159/69 -- -- 05/27/19 0730 98.7 ??F (37.1 ??C) 85 18 119/64 99 % -- 05/27/19 0602 -- -- -- -- -- 136 lb (61.7 kg) 05/26/191999 99.1 ??F (37.3 ??C) 74 16 137/62 100 % -- 05/26/19 0730 98 ??F (36.7 ??C) 88 16 139/64 100 % -- 05/26/1917 -- -- -- -- -- 136 lb (61.7 kg) 05/25/19 0730 97.3 ??F (36.3 ??C) 75 18 112/72 96 % -- Blood sugars: POC Glucose POC Glucose 05/27/192043 97 05/27/191699 116 Weights (last 3 days) Date/Time Weight 05/27/19 0602 136 lb (61.7 kg) 05/26/19 0617 136 lb (61.7 kg) GENERAL: Alert, NAD up in WC HEENT: EOMI MMM NECK: no JVD LUNGS: Clear to auscultation no wheezes no dyspnea CV: RR ABDOMEN: Soft NT to palpation active bowel sounds EXTREMITIES: No new edema SKIN: No new issues Both feet with no edema no skin breakdown, no induration noted TONE: normal MUSCULOSKELETAL: UE without weakness, able to manipulate objects and grasp RLE antigravity LLE with hip flexion, knee extension, ankle dorsiflexion-functional ROM and strength NEURO: No tremors PSYCH: SMILING, limited speech yet appropriate, and good eye contact Lab Data Reviewed current lab results available to me today. Lab Results Component Value Date WBC 4.5 05/27/2019 HGB 8.5 (L) 05/27/2019 HCT 28.2 (L) 05/27/2019 MCV 103.7 (H) 05/27/2019 PLT 215 05/27/2019 Lab Results Component Value Date GLUCOSE 96 05/27/2019 CALCIUM 8.0 (L) 05/27/2019 NA 138 05/27/2019 K 4.6 05/27/2019 CO2 27 05/27/2019 CL 97 (L) 05/27/2019 BUN 40 (H) 05/27/2019 CREATININE 6.68 (H) 05/27/2019 ANIONGAP 14 05/27/2019 Anemia leukopenia improved ESRD Imaging Reviewed current imaging results available to me today. Hips and pelvis xrays: Right hip: No acute fracture, malalignment, or degenerative disease. Left hip: Marked severe osteoarthrosis left hip joint with hhgc-hq-ivhf contact throughout the central, superior, superolateral portions of the articulation. Subchondral sclerosis and cystic change femoral head and acetabulum. No acute fracture. AP pelvis: Anatomic alignment. No other sites of degenerative disease. No acute pathology. Allergies No Known Allergies Medication List Scheduled/Continuous Medications Scheduled Medication Dose/Rate, Route, Frequency Last Action allopurinol (ZYLOPRIM) tablet 100 mg 100 mg, PO, Once a day Given: 05/28 800 atorvastatin (LIPITOR) tablet 20 mg 20 mg, PO, Once a day Given: 05/28 800 bisacodyl (DULCOLAX) suppository 10 mg 10 mg, RE, Once Ordered Diclofenac Sodium (VOLTAREN) 1 % gel 2 g 2 g, TOP, BID Given: 05/28 800 docusate sodium (COLACE) capsule 100 mg 100 mg, PO, Once a day Given: 05/28 799 donepezil (ARICEPT) tablet 10 mg 10 mg, PO, Nightly Given: 05/27 2136 epoetin ashly-epbx (RETACRIT) 4,000 Units 4,000 Units, SC, T-Th-Sat w/Dialysis Given: 05/27 172 folic acid (FOLVITE) tablet 1 mg 1 mg, PO, Once a day Given: 05/28 08 furosemide (LASIX) tablet 80 mg 80 mg, PO, BID DIURETIC Given: 05/28 0757 heparin (porcine) injection 1,000 Units 1,000 Units, IK, 3x/week in HD Given: 05/25 193 heparin (porcine) injection 1,000 Units 1,000 Units, IK, 3x/week in HD Given: 05/25 193 heparin (porcine) injection 2,000 Units 2,000 Units, IV, During Dialysis Given: 05/20 113 heparin (porcine) injection 4,300 Units 4,300 Units, IV, 3x/week in HD Given: 05/27 233 insulin lispro (HumaLOG) injection 0-6 Units 2 Units, SC, AC & HS Given - Witness Not Required:05/16 174 iron sucrose (VENOFER) injection 200 mg 200 mg, IV, During Dialysis Given: 05/27 2329 lidocaine (LIDOCARE) 4 % patch 2 patch 2 patch, TD, Once a day Medication Applied: 05/28 800 MINERIN cream cream No Dose/Rate, TOP, BID Given: 05/28 08 rOPINIRole (REQUIP) tablet 0.5 mg 0.5 mg, PO, T-Th-Sat w/Dialysis Given: 05/27 1810 tamsulosin (FLOMAX) 24 hr capsule 0.4 mg 0.4 mg, PO, Nightly Given: 05/27 2136 Current Functional Status reviewed today: REHAB COURSE: Physical Therapy: Discharge Summary PT Current Functional Status: Mr. Jules Mitchell'nolvia current functional mobility is as follows. TRANSFERS: Sit to and from stand with modified independence and increased time. Stand pivot transfer with modified independence and increased time. Car transfer with rigid leg hospital laboratory technician and modified independence with increased time. GAIT: Ambulates up to 276 feet with rolling walker and modified independence and increased time. Ambulates across uneven surface with rolling walker and distant supervision. ELEVATIONS Ascends/descends up to 12 steps at 6 inches each with 2 handrails and distant supervision and increased time to complete. Ascends/descends 6 [address] step. WHEELCHAIR ASSESSMENT: propels manual wheelchair 100 feet with moderate assistance prior to requiring total assistance for all remaining mobility ?? Standardized Assessment: 2 Minute Walk Test: 120 feet with rolling walker. Timed Up and Go: 57.1 seconds with rolling walker. ?? He presents with the below listed impairments. He is to discharge to home with follow up home health therapy services, where he would benefit from skilled rehabilitation services at this time in order to further improve upon the below listed impairments and prepare for return to prior level of function. RUE: Full weight-bearing LUE: Full weight-bearing RLE: Weight-bearing as tolerated LLE: Weight-bearing as tolerated Patient needs assistance with the following: Balance; Negotiating ramps or curbs; Negotiating stairs; Reaching; Rolling; Use of ambulatory device; Walking and/or mobility; Wheelchair management PT Custodial Goals: Care Score Legend 1 Dependent 2 Substantial/maximal assistance 3 Partial/moderate assistance 4 Supervision or touching assistance 5 Setup or clean-up assistance 6 Independent 7 Patient refused 9 N/A 10 Not attempted due to environmental limitations 88 Not attempted due to medical condition or safety concern Goal on Admission Admission Status Discharge Status Car Transfer Assistance Needed: Adaptive equipment, Physical assistance Physical Assistance Level: Less than 25% Comment: Unsafe to perform at this time. Reason if not Attempted: Safety concerns Car Transfer - CARE Score: 88 Car Transfer - CARE Score: 88 (05/12/19 1453 : Kylie Sanchez, PT)Car Transfer - CARE Score: 6 (05/27/19 1034 : Kylie Sanchez, PT) Walk 10 Feet Assistance Needed: Physical assistance, Adaptive equipment Physical Assistance Level: Total assistance Comment: Ambulates up to 6 feet with Total A (Mod A x 1 + close w/c follow) Reason if not Attempted: Safety concerns Walk 10 Feet - CARE Score: 88 Walk 10 Feet - CARE Score: 88 (05/12/19 1453 : Kylie Sanchez, PT)Walk 10 Feet - CARE Score: 6 (05/27/19 1034 : Kylie Sanchez, PT) Walk 50 Feet with Two Turns Assistance Needed: Adaptive equipment, Supervision Physical Assistance Level: No physical assistance Reason if not Attempted: Safety concerns Walk 50 Feet with Two Turns - CARE Score: 88 Walk 50 Feet with Two Turns - CARE Score: 88 (05/12/201353 : Kylie Sanchez PT) Walk 50 Feet with Two Turns - CARE Score: 6 (05/27/19 1034 : Kylie Sanchez PT) Walk 150 Feet Assistance Needed: Adaptive equipment, Supervision Physical Assistance Level: No physical assistance Comment: Ambulates up to 276 feet with Mod I using RW. Reason if not Attempted: Safety concerns Walk 150 Feet - CARE Score: 88 Walk 150 Feet - CARE Score: 88 (05/12/191452 : Kylie Sanchez PT) Walk 150 Feet - CARE Score: 6 (05/27/19 1034 : Kylie Sanchez PT) Walking 10 Feet on Uneven Surfaces Assistance Needed: Adaptive equipment, Supervision Physical Assistance Level: No physical assistance Comment: Unsafe to perform at this time. Reason if not Attempted: Safety concerns Walking 10 Feet on Uneven Surfaces - CARE Score: 88 Walking 10 Feet on Uneven Surfaces - CARE Score: 88 (05/12/191452 : Kylie Sanchez PT) Walking 10 Feet on Uneven Surfaces - CARE Score: 4 (05/27/19 103 : Kylie Sanchez PT) 1 Step (Curb) Assistance Needed: Adaptive equipment, Physical assistance Physical Assistance Level: Less than 25% Comment: Up/down 4 steps at 6 inches each with B HR and Min A 1 Step (Curb) - CARE Score: 3 1 Step (Curb) - CARE Score: 3 (05/12/191452 : Kylie Sanchez PT)1 Step (Curb) - CARE Score: 4 (05/27/191033 : Kylie Sanchez PT) 4 Steps Assistance Needed: Adaptive equipment, Physical assistance Physical Assistance Level: Less than 25% Comment: Up/down 4 steps at 6 inches each with B HR and Min A 4 Steps - CARE Score: 3 4 Steps - CARE Score: 3 (05/12/191452 : Kylie Sanchez PT) 4 Steps - CARE Score: 4 (05/27/191033 : Kylie Sanchez PT) 12 Steps Assistance Needed: Adaptive equipment, Verbal cues, Incidental touching Physical Assistance Level: No physical assistance Comment: Up/down 12 steps at 6 inches each with B HR and Distant Sup. Reason if not Attempted: Safety concerns 12 Steps - CARE Score: 88 12 Steps - CARE Score: 88 (05/12/19 1453 : Kylie Sanchez PT) 12 Steps - CARE Score: 4 (05/27/19 1034 : Kylie Sanchez PT) Picking Up Object Assistance Needed: Adaptive equipment, Supervision Physical Assistance Level: No physical assistance Comment: Unsafe to perform at this time. Reason if not Attempted: Safety concerns Picking Up Object - CARE Score: 88 Picking Up Object - CARE Score: 88 (05/12/19 1453 : Kylie Sanchez PT) Picking Up Object - CARE Score: 6 (05/27/19 1034 : Kylie Sanchez PT) Wheel 50 Feet with Two Turns Assistance Needed: Adaptive equipment, Physical assistance Physical Assistance Level: Less than 25% Comment: Propels up to 54' with Min A prior to requiring total assistance for all remaining w/c propulsion. Wheel 50 Feet with Two Turns - CARE Score: 3 Type of Wheelchair/Scooter: Manual Wheel 50 Feet with Two Turns - CARE Score: 3 (05/12/19 1453 : Kylie Sanchez PT) Wheel 50 Feet with Two Turns - CARE Score: 3 (05/27/19 1034 : Kylie Sanchez PT) Wheel 150 Feet Assistance Needed: Adaptive equipment, Physical assistance Physical Assistance Level: 75% or more Comment: Propels up to 54' with Min A prior to requiring total assistance for all remaining w/c propulsion. Wheel 150 Feet - CARE Score: 2 Type of Wheelchair/Scooter: Manual Wheel 150 Feet - CARE Score: 2 (05/12/19 1453 : Kylie Sanchez PT) Wheel 150 Feet - CARE Score: 2 (05/27/19 1034 : Kylie Sanchez PT) PT Other Custodial Goals Most Recent Value Other PT Elementary Education Tutor Goals Other Goals - Custodial Custodial 1 Filed on: 05/12/20191458 Other Custodial Goal 1 Pt to perform 2MWT with a distance of at least 40 feet in order to demonstrate improved overall mobility. Filed on: 05/12/20191458 Other Elementary Education Tutor Goal 1 Status Established Filed on: 05/12/2019 145 Expected Achievement Date 06/02/19 Filed on: 05/12/20191458 Occupational Therapy Discharge Summary OT Current Functional Status: Jules Mitchell is completing the following: EATING: with modified independence ORAL HYGIENE:with modified independence TOILETING:with modified independence BATHING:with supervision UPPER BODY DRESSING:with setup assist/supervision LOWER BODY DRESSING:with setup assist/supervision FOOTWEAR:with setup assist/supervision ROLL RIGHT/LEFT:with supervision SIT TO LYING:with supervision for use of leg hospital laboratory technician LYING TO SIT:with supervision for use of leg hospital laboratory technician SIT TO STAND:with modified independence CHAIR/BED TO CHAIR TRANSFER:with modified independence TOILET TRANSFER:with modified independence Jules Mitchell is demonstrating progress with sit <> stand transfers, bed/chair transfers, toilet transfers and toileting. Jules Mitchell continues to present with impaired safety awareness, impaired cognition, impaired endurance, impaired standing balance and tolerance, limiting independence with ADLs and functional transfers. Jules Mitchell would benefit from continued OT in the home health setting to maximize safety/independence within the home during ADL's, IADL's, community access/mobility, and leisure pursuits. RUE: Full weight-bearing LUE: Full weight-bearing RLE: Weight-bearing as tolerated LLE: Weight-bearing as tolerated Patient needs assistance with the following: Activities of daily living; Vision; Sitting balance; Going out in the community; Use of bathroom equipment Prosthetic/Orthotic Required: No OT Elementary Education Tutor Goals: Care Score Legend 1 Dependent 2 Substantial/maximal assistance 3 Partial/moderate assistance 4 Supervision or touching assistance 5 Setup or clean-up assistance 6 Independent 7 Patient refused 9 N/A 10 Not attempted due to environmental limitations 88 Not attempted due to medical condition or safety concern Goal on Admission Admission Status Discharge Status Eating Assistance Needed: Independent Physical Assistance Level: No physical assistance Comment: Pt able to open all necessary items. Eating - CARE Score: 6 Eating - CARE Score: 6 (05/12/19 1141 : Carlos Caba OT) Eating - CARE Score: 6 (05/27/19 1224 : Carlos Caba OT) Oral Hygiene Assistance Needed: Set-up / clean-up Physical Assistance Level: No physical assistance Comment: Unable to assess - pt does not have dentures available. Reason if not Attempted: Environmental limitations Oral Hygiene - CARE Score: 10 Oral Hygiene - CARE Score: 10 (05/12/19 1141 : Carlos Caba OT) Oral Hygiene - CARE Score: 6 (05/27/19 1224 : Carlos A Edward, OT) Toileting Hygiene Assistance Needed: Physical assistance Physical Assistance Level: 25%-49% Comment: Pt requires assist with 1/3 steps. Pt requires assist to doff clothing secondary to impaired balance. Pt able to don clothing following toileting and complete cruz-care with minimal assist for support during dynamic balance. Toileting Hygiene - CARE Score: 3 Toileting Hygiene - CARE Score: 3 (05/12/19 114 : Carlos Caba OT) Toileting Hygiene - CARE Score: 6 (05/27/19 1224 : Cralos Caba OT) Shower/Bathe Self Assistance Needed: Physical assistance Physical Assistance Level: 25%-49% Comment: Pt requires assist with drying lower legs and buttocks. Pt requires minimal assist for standing balance while washing buttocks. Pt requires verbal cues for safety and increased time due to impaired functional endurance. Shower/Bathe Self - CARE Score: 3 Shower/Bathe Self - CARE Score: 3 (05/12/19 114 : Carlos Caba OT) Shower/Bathe Self - CARE Score: 4 (05/27/19 1224 : Carlos Caba OT) Upper Body Dressing Assistance Needed: Set-up / clean-up Physical Assistance Level: No physical assistance Comment: Pt able to don/doff shirt with setup assistance. Upper Body Dressing - CARE Score: 5 Upper Body Dressing - CARE Score: 5 (05/12/19 114 : Carlos Caba OT) Upper Body Dressing - CARE Score: 4 (05/27/19 1224 : Carlos Caba OT) Lower Body Dressing Assistance Needed: Physical assistance Physical Assistance Level: 50%-74% Comment: Pt able to thread LLE through pants and unthread pants. Pt requires assist with threading underwear and donning pants/underwear over hips. Lower Body Dressing - CARE Score: 2 Lower Body Dressing - CARE Score: 2 (05/12/19 114 : Carlos Caba OT) Lower Body Dressing - CARE Score: 4 (05/27/19 1224 : Carlos Caba OT) Putting On/Taking Off Footwear Assistance Needed: Physical assistance Physical Assistance Level: 25%-49% Comment: Pt requires assist to doff L sock secondary to impaired functional reach. Pt able to doff R sock and don/doff R/L sock and shoe with increased time and CGA for adjustments. Putting On/Taking Off Footwear - CARE Score: 3 Putting On/Taking Off Footwear - CARE Score: 3 (05/12/19 1141 : Carlos Caba OT) Putting On/Taking Off Footwear - CARE Score: 4 (05/27/19 1224 : Carlos Caba OT) Roll Left and Right Assistance Needed: Physical assistance Physical Assistance Level: Less than 25% Comment: per PT report. Roll Left and Right - CARE Score: 3 Roll Left and Right - CARE Score: 3 (05/12/19 114 : Carlos Caba OT) Roll Left and Right - CARE Score: 4 (05/27/19 1224 : Carlos Caba OT) Sit to Lying Assistance Needed: Physical assistance Physical Assistance Level: Less than 25% Comment: per PT report - to elevate LLE. Sit to Lying - CARE Score: 3 Sit to Lying - CARE Score: 3 (05/12/19 114 : Carlos Caba OT) Sit to Lying - CARE Score: 4 (05/27/19 1224 : Carlos Caba OT) Lying to Sitting on Side of Bed Assistance Needed: Physical assistance Physical Assistance Level: Less than 25% Comment: per PT report to manuever LLE. Lying to Sitting on Side of Bed - CARE Score: 3 Lying to Sitting on Side of Bed - CARE Score: 3 (05/12/19 114 : Carlos Caba OT) Lying to Sitting on Side of Bed - CARE Score: 4 (05/27/19 1224 : Carlos Caba OT) Sit to Stand Assistance Needed: Physical assistance Physical Assistance Level: Less than 25% Comment: Pt requires minimal assist for sit <> stand from wheelchair with hand held assist and min assist for force production to achieve upright standing. Sit to Stand - CARE Score: 3 Sit to Stand - CARE Score: 3 (05/12/19 114 : Carlos Caba OT) Sit to Stand - CARE Score: 6 (05/27/19 1224 : Carlos Caba OT) Chair/Qrr-hz-Rngpo Transfer Assistance Needed: Physical assistance Physical Assistance Level: Less than 25% Comment: Pt requires minimal assist for bed/chair transfer with hand held assist and min assist forforce production to achieve upright standing. Chair/Bos-xa-Tzznz Transfer - CARE Score: 3 Chair/Onw-hv-Nzsgh Transfer - CARE Score: 3 (05/12/19 1141 : Carlos Caba OT) Chair/Aqm-qa-Hbwhp Transfer - CARE Score: 6 (05/27/19 1224 : Carlos Caba OT) Toilet Transfer Assistance Needed: Physical assistance Physical Assistance Level: Less than 25% Comment: Pt requires hand held assist and steadying assist during transfer for safety due to impaired balance. 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 Hanna current functional status is as follows: DIET: Regular with thin liquids. ??No dysphagia reported or suspected. Patient. Is edentulous and does not have dentures. Patient reports he is able to 'gum' any food he desires to eat without restrictions. COMPREHENSION: Supervision with basic daily needs - He benefited from repetition and slowed speech rate and understood statements regarding basic, routine issues EXPRESSION: Supervision. Patient communicates basic wants and needs and needs moderate to greater assist when discussing complex topics. Fair speech intelligibility with speech intelligibility being impaired due to fast rate and endentulous SOCIAL INTERACTION: Supervision - additional prompts for increased engagement, participation, eye contact PROBLEM SOLVING: Minimal assistance - Patient requires prompting or redirection to problem solve appropriately some of the time MEMORY: Minimal assistance - Patient presents with cognitive deficits in areas of recall and orientation requiring min cues. PROGRESS: Patient with improved basic attention, divergent naming, and simple problem solving improving from moderate assistance to min assistance. He improved intelligibility using compensatory strategies for dysarthria. Custodial Goals: Goal Discharge Status PULLING UNIT FLOORHAND Custodial Goal 1: Expression Level of Assistance to Meet Elementary Education Tutor Goal 1: Standby (less than 10%) PULLING UNIT FLOORHAND Elementary Education Tutor Goal 1 Details: Client will be 90% intelligible in conversation with an unfamiliar listener to improve speech intelligibility at home and in the community. PULLING UNIT FLOORHAND Custodial Goal 1 Expected Achievement Date: 05/26/19 PULLING UNIT FLOORHAND Elementary Education Tutor Goal 2: Additional Cognition Level of Assistance to Meet Custodial Goal 2: Standby (less than 10%) PULLING UNIT FLOORHAND Elementary Education Tutor Goal 2 Details: Patient will improve cognitive linguistic skills to function with Lisa at home and in the community. PULLING UNIT FLOORHAND Custodial Goal 2 Expected Achievement Date: 05/26/19 Section GG CARE Scores Physical Therapy? Car Transfer Car Transfer - CARE Score: 6 (05/27/19 1034 : Kylie Sanchez PT) Walk 10 Feet Walk 10 Feet - CARE Score: 6 (05/27/19 1034 : Kylie Sanchez PT) Walk 50 Feet with Two Turns Walk 50 Feet with Two Turns - CARE Score: 6 (05/27/19 1034 : Kylie Sanchez PT) Walk 150 Feet Walk 150 Feet - CARE Score: 6 (05/27/19 1034 : Kylie Sanchez PT) Walking 10 Feet on Uneven Surfaces Walking 10 Feet on Uneven Surfaces - CARE Score: 4 (05/27/19 1034 : Kylie Sanchez PT) 1 Step (Curb) 1 Step (Curb) - CARE Score: 4 (05/27/19 1034 : Kylie Sanchez PT) 4 Steps 4 Steps - CARE Score: 4 (05/27/19 1034 : Kylie Sanchez PT) 12 Steps 12 Steps - CARE Score: 4 (05/27/19 1034 : Kylie Sanchez PT) Picking Up Object Picking Up Object - CARE Score: 6 (05/27/19 1034 : Kylie Sanchez PT) Wheel 50 Feet with Two Turns Wheel 50 Feet with Two Turns - CARE Score: 3 (05/27/19 1034 : Kylie Sanchez PT) Wheel 150 Feet Wheel 150 Feet - CARE Score: 2 (05/27/19 1034 : Kylie Sanchez PT) BARRIERS: Cognitive impairments anemia arthritis severe hips Assessment and Plan 1.Etiologic Diagnosis: Encephalopathy in setting of new renal failure-may have dementia-on aricept.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 Improved attention and expression-at baseline-follow up at 2. Gait disorder multifactorial with noted severe arthritis Endurance training progressing well. Patient is ambulating with RW at distant supervision 3. ESRD: HD per dr donato-christina-as OP 4. Urinary retention, resolved. Off ditropan, all PVR's below 300 cc. Continuing Flomax. 5. Osteoarthritis: Voltaren gel, prn oral analgesics.-for right hip needs ORTHO evaluation, set up as OP 6. Dyslipidemia: continuing statin. 7. History of gout: Allopurinol. No new joint complaints. No foot swelling noted 8. Left hip arthritis, severe-follow up with ORTHO Dr. Agudelo as OP 9. BP managing per Nephrology given HD Co-Morbidities that are continuing to impact the rehab process: Problem List: 2019-04: Hyperglycemia 2019-04: Retention of urine 2019-04: Diastolic dysfunction 2019-04: Seroma 2019-04: Abnormality of gait 2019-04: Toxic metabolic encephalopathy 2019-04: End stage renal failure on dialysis 2019-04: Debility 2019-04: Moderate malnutrition 2019-04: Anemia of chronic renal failure 2019-04: Chronic kidney disease, Stage V 2019-04: Essential hypertension 2019-04: Hyperkalemia 2019-04: Hypervolemia 2019-04: Malignant neoplasm of prostate 2019-04: Other hyperlipidemia 2019-04: Metabolic acidosis 2019-04: Latent autoimmune diabetes mellitus in adult Continue therapies. Continue inpatient comprehensive interdisciplinary rehabilitation to address strengthening, mobility skills, self care, cognitive functioning, speech, communication and swallowing needs. The patient continues to require the interdisciplinary team approach and 24 hour monitoring. ADDITIONAL INFORMATION: EDUCATION/PT TEACHING: hip OA follow up addressed with family EQUIPMENT: [facility] DESTINATION: home CANDI: 05/28/2019 FOLLOW UP PLANS: Dr Yehuda Agudelo HD as OP , FLORENCIA Temple MD 05/28/19 9:35 AM * Florencia Moulton MD - 05/27/2019 11:37 PM CST Rehabilitation Physician Progress Note Patient Name: Jules Mitchell Age: 73 y.o. Patient's Primary Care Physician: Dr. Kwame Berg LOS: 16 DAYS This was a face to face visit with the patient Seen and examined today for rehab and medical issues related to debility with encephalopathy. CC I will be up all night with dialysis-my feet are sore HPI and Interval history: Watching pvrs-dced ditropan Less than 300 cc Tolerating HD Blood sugars are below 150 PVRs remain below 300 cc Ambulating better Family teaching Tolerating dialysis Addressing PVRs BP low unclear if symptomatic Continues improved ambulation Improving mood Family wishes MR for left leg Patient is walking over 180 feet Reviewed work up on admission for left leg pain No xrays done by acute team-ordered xrays xrays demonstrated severe bone on bone arthritis with cysts Updated family and patient ORTHO referral recommended Blood glucose stable DC planning underway OP HD [facility] for discharge, Day institute recommended for further therapies requip started by Dr. Donato on dialysis days Subjective Review of Systems Denies chest pain, dyspnea or nausea. Pain controlled PHYSICAL EXAM: (Retired) Vitals (last 3 days) Date/Time Temp Pulse Resp BP SpO2 Weight 05/27/19 2307 -- 99 16 122/71 -- -- 05/27/192246 -- 98 16 130/69 -- -- 05/27/192226 -- 83 16 97/71 -- -- 05/27/192206 -- 85 14 105/65 -- -- 05/27/192146 -- 83 18 93/66 -- -- 05/27/192126 -- 78 18 128/65 -- -- 05/27/192108 -- 87 16 102/86 -- -- 05/27/192046 -- 77 16 121/63 -- -- 05/27/192027 -- 89 16 134/68 -- -- 05/27/192006 -- 76 16 101/64 -- -- 05/27/191946 -- 71 16 107/64 -- -- 05/27/191926 -- 67 18 118/63 -- -- 05/27/191919 -- 66 16 128/65 -- -- 05/27/19 1903 98 ??F (36.7 ??C) 73 18 102/70 -- -- 05/27/19 1700 -- 74 -- (!) 159/69 -- -- 05/27/19 0730 98.7 ??F (37.1 ??C) 85 18 119/64 99 % -- 05/27/19 0602 -- -- -- -- -- 136 lb (61.7 kg) 05/26/191999 99.1 ??F (37.3 ??C) 74 16 137/62 100 % -- 05/26/19 0730 98 ??F (36.7 ??C) 88 16 139/64 100 % -- 05/26/19 0617 -- -- -- -- -- 136 lb (61.7 kg) 05/25/19 0730 97.3 ??F (36.3 ??C) 75 18 112/72 96 % -- 05/24/19 2000 98.4 ??F (36.9 ??C) 83 16 139/71 99 % -- 05/24/19 1729 -- -- -- 101/60 -- -- 05/24/19 0846 -- 89 -- 112/58 97 % -- 05/24/19 0700 97 ??F (36.1 ??C) 77 16 95/55 98 % -- 05/24/19 0600 -- -- -- -- -- 130 lb 8 oz (59.2 kg) Blood sugars: POC Glucose POC Glucose 05/27/19 2044 97 05/27/19 1700 116 Weights (last 3 days) Date/Time Weight 05/27/19 0602 136 lb (61.7 kg) 05/26/19 0617 136 lb (61.7 kg) 05/24/19 0600 130 lb 8 oz (59.2 kg) GENERAL: Alert, NAD smiling HEENT: EOMI MMM NECK: no JVD LUNGS: Clear to auscultation no wheezes no dyspnea CV: RR ABDOMEN: Soft NT to palpation EXTREMITIES: No new edema SKIN: No new issues Both feet with no edema no skin breakdown, no induration noted today Placed prevalon boots on while in bed for dialysis TONE: normal MUSCULOSKELETAL: UE without weakness RLE antigravity LLE with hip flexion, knee extension, ankle dorsiflexion-functional ROM and strength NEURO: No tremors PSYCH: SMILING Lab Data Reviewed current lab results available to me today. Lab Results Component Value Date WBC 4.5 05/27/2019 HGB 8.5 (L) 05/27/2019 HCT 28.2 (L) 05/27/2019 MCV 103.7 (H) 05/27/2019 PLT 215 05/27/2019 Lab Results Component Value Date GLUCOSE 96 05/27/2019 CALCIUM 8.0 (L) 05/27/2019 NA 138 05/27/2019 K 4.6 05/27/2019 CO2 27 05/27/2019 CL 97 (L) 05/27/2019 BUN 40 (H) 05/27/2019 CREATININE 6.68 (H) 05/27/2019 ANIONGAP 14 05/27/2019 Anemia leukopenia improved ESRD Imaging Reviewed current imaging results available to me today. Hips and pelvis: Right hip: No acute fracture, malalignment, or degenerative disease. Left hip: Marked severe osteoarthrosis left hip joint with hlaj-lf-ensn contact throughout the central, superior, superolateral portions of the articulation. Subchondral sclerosis and cystic change femoral head and acetabulum. No acute fracture. AP pelvis: Anatomic alignment. No other sites of degenerative disease. No acute pathology. Allergies No Known Allergies Medication List Scheduled/Continuous Medications Scheduled Medication Dose/Rate, Route, Frequency Last Action allopurinol (ZYLOPRIM) tablet 100 mg 100 mg, PO, Once a day Given: 05/27 818 atorvastatin (LIPITOR) tablet 20 mg 20 mg, PO, Once a day Given: 05/27 819 bisacodyl (DULCOLAX) suppository 10 mg 10 mg, RE, Once Ordered Diclofenac Sodium (VOLTAREN) 1 % gel 2 g 2 g, TOP, BID Given: 05/27 2137 docusate sodium (COLACE) capsule 100 mg 100 mg, PO, Once a day Given: 05/27 819 donepezil (ARICEPT) tablet 10 mg 10 mg, PO, Nightly Given: 05/27 2136 epoetin ashly-epbx (RETACRIT) 4,000 Units 4,000 Units, SC, T-Th-Sat w/Dialysis Given: 05/27 1728 folic acid (FOLVITE) tablet 1 mg 1 mg, PO, Once a day Given: 05/27 819 furosemide (LASIX) tablet 80 mg 80 mg, PO, BID DIURETIC Given: 05/27 1725 heparin (porcine) injection 1,000 Units 1,000 Units, IK, 3x/week in HD Given: 05/25 1935 heparin (porcine) injection 1,000 Units 1,000 Units, IK, 3x/week in HD Given: 05/25 1935 heparin (porcine) injection 2,000 Units 2,000 Units, IV, During Dialysis Given: 05/20 1129 heparin (porcine) injection 4,300 Units 4,300 Units, IV, 3x/week in HD Given: 05/25 1800 insulin lispro (HumaLOG) injection 0-6 Units 2 Units, SC, AC & HS Given - Witness Not Required:05/16 174 iron sucrose (VENOFER) injection 200 mg 200 mg, IV, During Dialysis Given: 05/25 1803 lidocaine (LIDOCARE) 4 % patch 2 patch 2 patch, TD, Once a day Medication Applied: 05/27 818 MINERIN cream cream No Dose/Rate, TOP, BID Given: 05/27 2137 rOPINIRole (REQUIP) tablet 0.5 mg 0.5 mg, PO, T--Fri w/Dialysis Given: 05/27 1810 tamsulosin (FLOMAX) 24 hr capsule 0.4 mg 0.4 mg, PO, Nightly Given: 05/27 2136 Current Functional Status reviewed today: REHAB COURSE: Physical Therapy: Discharge Summary PT Current Functional Status: Mr. Jules Spring current functional mobility is as follows. TRANSFERS: Sit to and from stand with modified independence and increased time. Stand pivot transfer with modified independence and increased time. Car transfer with rigid leg hospital laboratory technician and modified independence with increased time. GAIT: Ambulates up to 276 feet with rolling walker and modified independence and increased time. Ambulates across uneven surface with rolling walker and distant supervision. ELEVATIONS Ascends/descends up to 12 steps at 6 inches each with 2 handrails and distant supervision and increased time to complete. Ascends/descends 6 [address] step. WHEELCHAIR ASSESSMENT: propels manual wheelchair 100 feet with moderate assistance prior to requiring total assistance for all remaining mobility ?? Standardized Assessment: 2 Minute Walk Test: 120 feet with rolling walker. Timed Up and Go: 57.1 seconds with rolling walker. ?? He presents with the below listed impairments. He is to discharge to home with follow up home health therapy services, where he would benefit from skilled rehabilitation services at this time in order to further improve upon the below listed impairments and prepare for return to prior level of function. RUE: Full weight-bearing LUE: Full weight-bearing RLE: Weight-bearing as tolerated LLE: Weight-bearing as tolerated Patient needs assistance with the following: Balance; Negotiating ramps or curbs; Negotiating stairs; Reaching; Rolling; Use of ambulatory device; Walking and/or mobility; Wheelchair management PT Custodial Goals: Care Score Legend 1 Dependent 2 Substantial/maximal assistance 3 Partial/moderate assistance 4 Supervision or touching assistance 5 Setup or clean-up assistance 6 Independent 7 Patient refused 9 N/A 10 Not attempted due to environmental limitations 88 Not attempted due to medical condition or safety concern Goal on Admission Admission Status Discharge Status Car Transfer Assistance Needed: Adaptive equipment, Physical assistance Physical Assistance Level: Less than 25% Comment: Unsafe to perform at this time. Reason if not Attempted: Safety concerns Car Transfer - CARE Score: 88 Car Transfer - CARE Score: 88 (05/12/19 1453 : Kylie Sanchez PT)Car Transfer - CARE Score: 6 (05/27/19 1034 : Kylie Sanchez PT) Walk 10 Feet Assistance Needed: Physical assistance, Adaptive equipment Physical Assistance Level: Total assistance Comment: Ambulates up to 6 feet with Total A (Mod A x 1 + close w/c follow) Reason if not Attempted: Safety concerns Walk 10 Feet - CARE Score: 88 Walk 10 Feet - CARE Score: 88 (05/12/19 1453 : Kylie Sanchez PT)Walk 10 Feet - CARE Score: 6 (05/27/19 1034 : Kylie Sanchez PT) Walk 50 Feet with Two Turns Assistance Needed: Adaptive equipment, Supervision Physical Assistance Level: No physical assistance Reason if not Attempted: Safety concerns Walk 50 Feet with Two Turns - CARE Score: 88 Walk 50 Feet with Two Turns - CARE Score: 88 (05/12/201353 : Kylie Sanchez PT) Walk 50 Feet with Two Turns - CARE Score: 6 (05/27/19 1034 : Kylie Sanchez PT) Walk 150 Feet Assistance Needed: Adaptive equipment, Supervision Physical Assistance Level: No physical assistance Comment: Ambulates up to 276 feet with Mod I using RW. Reason if not Attempted: Safety concerns Walk 150 Feet - CARE Score: 88 Walk 150 Feet - CARE Score: 88 (05/12/19 1453 : Kylie Sanchez PT) Walk 150 Feet - CARE Score: 6 (05/27/19 1034 : Kylie Sanchez PT) Walking 10 Feet on Uneven Surfaces Assistance Needed: Adaptive equipment, Supervision Physical Assistance Level: No physical assistance Comment: Unsafe to perform at this time. Reason if not Attempted: Safety concerns Walking 10 Feet on Uneven Surfaces - CARE Score: 88 Walking 10 Feet on Uneven Surfaces - CARE Score: 88 (05/12/191452 : Kylie Sanchez PT) Walking 10 Feet on Uneven Surfaces - CARE Score: 4 (05/27/19 1034 : Kylie Sanchez PT) 1 Step (Curb) Assistance Needed: Adaptive equipment, Physical assistance Physical Assistance Level: Less than 25% Comment: Up/down 4 steps at 6 inches each with B HR and Min A 1 Step (Curb) - CARE Score: 3 1 Step (Curb) - CARE Score: 3 (05/12/191452 : Kylie Sanchez PT)1 Step (Curb) - CARE Score: 4 (05/27/19 103 : Kylie Sanchez PT) 4 Steps Assistance Needed: Adaptive equipment, Physical assistance Physical Assistance Level: Less than 25% Comment: Up/down 4 steps at 6 inches each with B HR and Min A 4 Steps - CARE Score: 3 4 Steps - CARE Score: 3 (05/12/191452 : Kylie Sanchez PT) 4 Steps - CARE Score: 4 (05/27/191033 : Kylie Sanchez PT) 12 Steps Assistance Needed: Adaptive equipment, Verbal cues, Incidental touching Physical Assistance Level: No physical assistance Comment: Up/down 12 steps at 6 inches each with B HR and Distant Sup. Reason if not Attempted: Safety concerns 12 Steps - CARE Score: 88 12 Steps - CARE Score: 88 (05/12/191452 : Kylie Sanchez PT) 12 Steps - CARE Score: 4 (05/27/19 103 : Kylie Sanchez PT) Picking Up Object Assistance Needed: Adaptive equipment, Supervision Physical Assistance Level: No physical assistance Comment: Unsafe to perform at this time. Reason if not Attempted: Safety concerns Picking Up Object - CARE Score: 88 Picking Up Object - CARE Score: 88 (05/12/191452 : Kylie Sanchez PT) Picking Up Object - CARE Score: 6 (05/27/19 103 : Kylie Sanchez PT) Wheel 50 Feet with Two Turns Assistance Needed: Adaptive equipment, Physical assistance Physical Assistance Level: Less than 25% Comment: Propels up to 54' with Min A prior to requiring total assistance for all remaining w/c propulsion. Wheel 50 Feet with Two Turns - CARE Score: 3 Type of Wheelchair/Scooter: Manual Wheel 50 Feet with Two Turns - CARE Score: 3 (05/12/19 1453 : Kylie Sanchez PT) Wheel 50 Feet with Two Turns - CARE Score: 3 (05/27/19 1034 : Kylie Sanchez PT) Wheel 150 Feet Assistance Needed: Adaptive equipment, Physical assistance Physical Assistance Level: 75% or more Comment: Propels up to 54' with Min A prior to requiring total assistance for all remaining w/c propulsion. Wheel 150 Feet - CARE Score: 2 Type of Wheelchair/Scooter: Manual Wheel 150 Feet - CARE Score: 2 (05/12/19 1453 : Kylie Sanchez PT) Wheel 150 Feet - CARE Score: 2 (05/27/19 1034 : Kylie Sanchez PT) PT Other Elementary Education Tutor Goals Most Recent Value Other PT Custodial Goals Other Goals - Custodial Custodial 1 Filed on: 05/12/2019 145 Other Elementary Education Tutor Goal 1 Pt to perform 2MWT with a distance of at least 40 feet in order to demonstrate improved overall mobility. Filed on: 05/12/2019 145 Other Custodial Goal 1 Status Established Filed on: 05/12/2019 145 Expected Achievement Date 06/02/19 Filed on: 05/12/2019 145 Occupational Therapy Discharge Summary OT Current Functional Status: Jules Mitchell is completing the following: EATING: with modified independence ORAL HYGIENE:with modified independence TOILETING:with modified independence BATHING:with supervision UPPER BODY DRESSING:with setup assist/supervision LOWER BODY DRESSING:with setup assist/supervision FOOTWEAR:with setup assist/supervision ROLL RIGHT/LEFT:with supervision SIT TO LYING:with supervision for use of leg hospital laboratory technician LYING TO SIT:with supervision for use of leg hospital laboratory technician SIT TO STAND:with modified independence CHAIR/BED TO CHAIR TRANSFER:with modified independence TOILET TRANSFER:with modified independence Jules Mitchell is demonstrating progress with sit <> stand transfers, bed/chair transfers, toilet transfers and toileting. Jules Mitchell continues to present with impaired safety awareness, impaired cognition, impaired endurance, impaired standing balance and tolerance, limiting independence with ADLs and functional transfers. Jules Mitchell would benefit from continued OT in the home health setting to maximize safety/independence within the home during ADL's, IADL's, community access/mobility, and leisure pursuits. RUE: Full weight-bearing LUE: Full weight-bearing RLE: Weight-bearing as tolerated LLE: Weight-bearing as tolerated Patient needs assistance with the following: Activities of daily living; Vision; Sitting balance; Going out in the community; Use of bathroom equipment Prosthetic/Orthotic Required: No OT Elementary Education Tutor Goals: Care Score Legend 1 Dependent 2 Substantial/maximal assistance 3 Partial/moderate assistance 4 Supervision or touching assistance 5 Setup or clean-up assistance 6 Independent 7 Patient refused 9 N/A 10 Not attempted due to environmental limitations 88 Not attempted due to medical condition or safety concern Goal on Admission Admission Status Discharge Status Eating Assistance Needed: Independent Physical Assistance Level: No physical assistance Comment: Pt able to open all necessary items. Eating - CARE Score: 6 Eating - CARE Score: 6 (05/12/19 1141 : Carlos Caba OT) Eating - CARE Score: 6 (05/27/19 1224 : Carlos Caba OT) Oral Hygiene Assistance Needed: Set-up / clean-up Physical Assistance Level: No physical assistance Comment: Unable to assess - pt does not have dentures available. Reason if not Attempted: Environmental limitations Oral Hygiene - CARE Score: 10 Oral Hygiene - CARE Score: 10 (05/12/19 1141 : Carlos Caba OT) Oral Hygiene - CARE Score: 6 (05/27/19 1224 : Carlos Caba OT) Toileting Hygiene Assistance Needed: Physical assistance Physical Assistance Level: 25%-49% Comment: Pt requires assist with 1/3 steps. Pt requires assist to doff clothing secondary to impaired balance. Pt able to don clothing following toileting and complete cruz-care with minimal assist for support during dynamic balance. Toileting Hygiene - CARE Score: 3 Toileting Hygiene - CARE Score: 3 (05/12/19 1141 : Carlos Caba OT) Toileting Hygiene - CARE Score: 6 (05/27/19 1224 : Carlos Caba OT) Shower/Bathe Self Assistance Needed: Physical assistance Physical Assistance Level: 25%-49% Comment: Pt requires assist with drying lower legs and buttocks. Pt requires minimal assist for standing balance while washing buttocks. Pt requires verbal cues for safety and increased time due to impaired functional endurance. Shower/Bathe Self - CARE Score: 3 Shower/Bathe Self - CARE Score: 3 (05/12/19 114 : Carlos Caba OT) Shower/Bathe Self - CARE Score: 4 (05/27/19 1224 : Carlos Caba OT) Upper Body Dressing Assistance Needed: Set-up / clean-up Physical Assistance Level: No physical assistance Comment: Pt able to don/doff shirt with setup assistance. Upper Body Dressing - CARE Score: 5 Upper Body Dressing - CARE Score: 5 (05/12/19 114 : Carlos Caba OT) Upper Body Dressing - CARE Score: 4 (05/27/19 122 : Carlos Caba OT) Lower Body Dressing Assistance Needed: Physical assistance Physical Assistance Level: 50%-74% Comment: Pt able to thread LLE through pants and unthread pants. Pt requires assist with threading underwear and donning pants/underwear over hips. Lower Body Dressing - CARE Score: 2 Lower Body Dressing - CARE Score: 2 (05/12/191140 : Carlos Caba OT) Lower Body Dressing - CARE Score: 4 (05/27/191223 : Carlos Caba OT) Putting On/Taking Off Footwear Assistance Needed: Physical assistance Physical Assistance Level: 25%-49% Comment: Pt requires assist to doff L sock secondary to impaired functional reach. Pt able to doff R sock and don/doff R/L sock and shoe with increased time and CGA for adjustments. Putting On/Taking Off Footwear - CARE Score: 3 Putting On/Taking Off Footwear - CARE Score: 3 (05/12/191140 : Carlos Caba OT) Putting On/Taking Off Footwear - CARE Score: 4 (05/27/19 122 : Carlos Caba OT) Roll Left and Right Assistance Needed: Physical assistance Physical Assistance Level: Less than 25% Comment: per PT report. Roll Left and Right - CARE Score: 3 Roll Left and Right - CARE Score: 3 (05/12/191140 : Carlos Caba OT) Roll Left and Right - CARE Score: 4 (05/27/19 1224 : Carlos Caba OT) Sit to Lying Assistance Needed: Physical assistance Physical Assistance Level: Less than 25% Comment: per PT report - to elevate LLE. Sit to Lying - CARE Score: 3 Sit to Lying - CARE Score: 3 (05/12/19 1141 : Carlos Caba OT) Sit to Lying - CARE Score: 4 (05/27/19 1224 : Carlos Caba OT) Lying to Sitting on Side of Bed Assistance Needed: Physical assistance Physical Assistance Level: Less than 25% Comment: per PT report to manuever LLE. Lying to Sitting on Side of Bed - CARE Score: 3 Lying to Sitting on Side of Bed - CARE Score: 3 (05/12/19 1141 : Carlos Caba OT) Lying to Sitting on Side of Bed - CARE Score: 4 (05/27/19 1224 : Carlos Caba OT) Sit to Stand Assistance Needed: Physical assistance Physical Assistance Level: Less than 25% Comment: Pt requires minimal assist for sit <> stand from wheelchair with hand held assist and min assist for force production to achieve upright standing. Sit to Stand - CARE Score: 3 Sit to Stand - CARE Score: 3 (05/12/19 1141 : Carlos Caba OT) Sit to Stand - CARE Score: 6 (05/27/19 1224 : Carlos Caba OT) Chair/Wrb-xo-Gcjtz Transfer Assistance Needed: Physical assistance Physical Assistance Level: Less than 25% Comment: Pt requires minimal assist for bed/chair transfer with hand held assist and min assist forforce production to achieve upright standing. Chair/Ajr-az-Ibjqg Transfer - CARE Score: 3 Chair/Irq-hq-Ilral Transfer - CARE Score: 3 (05/12/19 1141 : Carlos Caba OT) Chair/Cpn-wl-Mhqmy Transfer - CARE Score: 6 (05/27/19 1224 : Carlos Caba OT) Toilet Transfer Assistance Needed: Physical assistance Physical Assistance Level: Less than 25% Comment: Pt requires hand held assist and steadying assist during transfer for safety due to impaired balance. 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 Vicente's current functional status is as follows: DIET: Regular with thin liquids. ??No dysphagia reported or suspected. Patient. Is edentulous and does not have dentures. Patient reports he is able to 'gum' any food he desires to eat without restrictions. COMPREHENSION: Supervision with basic daily needs - He benefited from repetition and slowed speech rate and understood statements regarding basic, routine issues EXPRESSION: Supervision. Patient communicates basic wants and needs and needs moderate to greater assist when discussing complex topics. Fair speech intelligibility with speech intelligibility being impaired due to fast rate and endentulous SOCIAL INTERACTION: Supervision - additional prompts for increased engagement, participation, eye contact PROBLEM SOLVING: Minimal assistance - Patient requires prompting or redirection to problem solve appropriately some of the time MEMORY: Minimal assistance - Patient presents with cognitive deficits in areas of recall and orientation requiring min cues. PROGRESS: Patient with improved basic attention, divergent naming, and simple problem solving improving from moderate assistance to min assistance. He improved intelligibility using compensatory strategies for dysarthria. Custodial Goals: Goal Discharge Status PULLING UNIT FLOORHAND Custodial Goal 1: Expression Level of Assistance to Meet Elementary Education Tutor Goal 1: Standby (less than 10%) PULLING UNIT FLOORHAND Custodial Goal 1 Details: Client will be 90% intelligible in conversation with an unfamiliar listener to improve speech intelligibility at home and in the community. PULLING UNIT FLOORHAND Elementary Education Tutor Goal 1 Expected Achievement Date: 05/26/19 PULLING UNIT FLOORHAND Custodial Goal 2: Additional Cognition Level of Assistance to Meet Elementary Education Tutor Goal 2: Standby (less than 10%) PULLING UNIT FLOORHAND Custodial Goal 2 Details: Patient will improve cognitive linguistic skills to function with Lisa at home and in the community. PULLING UNIT FLOORHAND Elementary Education Tutor Goal 2 Expected Achievement Date: 05/26/19 Section GG CARE Scores Physical Therapy? Car Transfer Car Transfer - CARE Score: 6 (05/27/19 1034 : Kylie Sanchez PT) Walk 10 Feet Walk 10 Feet - CARE Score: 6 (05/27/19 1034 : Kylie Sanchez PT) Walk 50 Feet with Two Turns Walk 50 Feet with Two Turns - CARE Score: 6 (05/27/19 1034 : Kylie Sanchez PT) Walk 150 Feet Walk 150 Feet - CARE Score: 6 (05/27/19 1034 : Kylie Sanchez PT) Walking 10 Feet on Uneven Surfaces Walking 10 Feet on Uneven Surfaces - CARE Score: 4 (05/27/19 1034 : Kylie Sanchez, PT) 1 Step (Curb) 1 Step (Curb) - CARE Score: 4 (05/27/19 1034 : Kylie Sanchez PT) 4 Steps 4 Steps - CARE Score: 4 (05/27/19 1034 : Kylie Sanchez PT) 12 Steps 12 Steps - CARE Score: 4 (05/27/19 1034 : Kylie Sanchez PT) Picking Up Object Picking Up Object - CARE Score: 6 (05/27/19 1034 : Kylie Sanchez PT) Wheel 50 Feet with Two Turns Wheel 50 Feet with Two Turns - CARE Score: 3 (05/27/19 1034 : Kylie Sanchez PT) Wheel 150 Feet Wheel 150 Feet - CARE Score: 2 (05/27/19 1034 : Kylie Sanchez PT) BARRIERS: Cognitive impairments anemia arthritis severe hips Assessment and Plan 1.Etiologic Diagnosis: Encephalopathy in setting of new renal failure-may have dementia-on aricept.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 Improved attention and expression-at baseline 2. Gait disorder multifactorial with noted severe arthritis Endurance training progressing well. Patient is ambulating with RW at distant supervision 3. ESRD: HD per dr donato 4. Urinary retention, resolved. Off ditropan, all PVR's below 300 cc. Continuing Flomax. 5. Osteoarthritis: Voltaren gel, prn oral analgesics.-for right hip needs ORTHO evaluation 6. Dyslipidemia: continuing statin. 7. History of gout: Allopurinol. No new joint complaints. No foot swelling today 8. Left hip arthritis, severe-follow up with ORTHO Dr. Bishop Co-Morbidities that are continuing to impact the rehab process: Problem List: 2019-04: Hyperglycemia 2019-04: Retention of urine 2019-04: Diastolic dysfunction 2019-04: Seroma 2019-04: Abnormality of gait 2019-04: Toxic metabolic encephalopathy 2019-04: End stage renal failure on dialysis 2019-04: Debility 2019-04: Moderate malnutrition 2019-04: Anemia of chronic renal failure 2019-04: Chronic kidney disease, Stage V 2019-04: Essential hypertension 2019-04: Hyperkalemia 2019-04: Hypervolemia 2019-04: Malignant neoplasm of prostate 2019-04: Other hyperlipidemia 2019-04: Metabolic acidosis 2020-01: Latent autoimmune diabetes mellitus in adult Continue therapies. Continue inpatient comprehensive interdisciplinary rehabilitation to address strengthening, mobility skills, self care, cognitive functioning, speech, communication and swallowing needs. The patient continues to require the interdisciplinary team approach and 24 hour monitoring. ADDITIONAL INFORMATION: DC planned for Friday EDUCATION/PT TEACHING: hip management EQUIPMENT: WW DESTINATION: home CANDI: 05/28/2019 FOLLOW UP PLANS: Dr Yehuda Bishop HD as OP , FLORENCIA Tello MD 05/27/19 11:37 PM * Carmen Donato MD - 05/27/2019 5:43 PM CST Nephrology Progress Note Jules Mitchell [id number] Subjective: Patient seen and examined in dialysis, denies fever, chills, chest pain, sob, cough, changes in appetite, N/V, diarrhea, abdominal pain, dysuria, hematuria Objective: Vital signs: Vitals: 05/26/19199905/27/19 0602 05/27/19 0730 05/27/19 1700 BP: 137/62 119/64 (!) 159/69 Pulse: 74 85 74 Resp: 16 18 Temp: 99.1 ??F (37.3 ??C) 98.7 ??F (37.1 ??C) TempSrc: Oral Oral SpO2: 100% 99% Weight: 136 lb (61.7 kg) Height: Weight: Wt Readings from Last 3 Encounters: 05/27/19 136 lb (61.7 kg) Medications: Scheduled/Continuous Medications Scheduled Medication Dose/Rate, Route, Frequency Last Action allopurinol (ZYLOPRIM) tablet 100 mg 100 mg, PO, Once a day Given: 05/27 818 atorvastatin (LIPITOR) tablet 20 mg 20 mg, PO, Once a day Given: 05/27 819 bisacodyl (DULCOLAX) suppository 10 mg 10 mg, RE, Once Ordered Diclofenac Sodium (VOLTAREN) 1 % gel 2 g 2 g, TOP, BID Given: 05/27 823 docusate sodium (COLACE) capsule 100 mg 100 mg, PO, Once a day Given: 05/27 819 donepezil (ARICEPT) tablet 10 mg 10 mg, PO, Nightly Given: 05/26 2045 epoetin ashly-epbx (RETACRIT) 4,000 Units 4,000 Units, SC, T-Th-Sat w/Dialysis Given: 05/27 1728 folic acid (FOLVITE) tablet 1 mg 1 mg, PO, Once a day Given: 05/27 819 furosemide (LASIX) tablet 80 mg 80 mg, PO, BID DIURETIC Given: 05/27 1725 heparin (porcine) injection 1,000 Units 1,000 Units, IK, 3x/week in HD Given: 05/25 193 heparin (porcine) injection 1,000 Units 1,000 Units, IK, 3x/week in HD Given: 05/25 193 heparin (porcine) injection 2,000 Units 2,000 Units, IV, During Dialysis Given: 05/20 113 heparin (porcine) injection 4,300 Units 4,300 Units, IV, 3x/week in HD Given: 05/25 180 insulin lispro (HumaLOG) injection 0-6 Units 2 Units, SC, AC & HS Given - Witness Not Required:05/16 1745 iron sucrose (VENOFER) injection 200 mg 200 mg, IV, During Dialysis Given: 05/25 1803 lidocaine (LIDOCARE) 4 % patch 2 patch 2 patch, TD, Once a day Medication Applied: 05/27 818 MINERIN cream cream No Dose/Rate, TOP, BID Given: 05/27 823 tamsulosin (FLOMAX) 24 hr capsule 0.4 mg 0.4 mg, PO, Nightly Given: 05/26 2046 Current Facility-Administered Medications: ??? acetaminophen (TYLENOL) tablet 325 mg, 325 mg, PO/Per Tube, Q6H PRN, Misty Hathaway MD, 325 mgat 05/11/191 ??? allopurinol (ZYLOPRIM) tablet 100 mg, 100 mg, Oral, Once a day, Misty Hathaway MD, 100 mg at 05/27/19818 ??? atorvastatin (LIPITOR) tablet 20 mg, 20 mg, Oral, Once a day, Misty Hathaway MD, 20 mg at 05/27/19819 ??? bisacodyl (DULCOLAX) suppository 10 mg, 10 mg, Rectal, Once, Lucija Sadl, CORK COMPOUNDER ??? dextrose (GLUTOSE) 40 % oral gel 15 g, 15 g, Oral, PRN, Manoj Morrison, CORK COMPOUNDER ??? dextrose 5 % and sodium chloride 0.45 % infusion, 50 mL/hr, Intravenous, PRN, Manoj Morrison, C[employer] COMP[employer] ??? dextrose 50 % IV solution 25 g, 25 g, Intravenous, PRN, Manoj Morrison, CORK COMP[employer] ??? Diclofenac Sodium (VOLTAREN) 1 % gel 2 g, 2 g, Topical, 2 times per day, Manoj Morrison NP, 2 g at 05/27/19823 ??? docusate sodium (COLACE) capsule 100 mg, 100 mg, Oral, Once a day, Misty Hathaway MD, 100 mg at 05/27/19819 ??? donepezil (ARICEPT) tablet 10 mg, 10 mg, Oral, Nightly, Misty Hathaway MD, 10 mg at 05/26/192045 ??? epoetin ashly-epbx (RETACRIT) 4,000 Units, 4,000 Units, Subcutaneous, - w/Dialysis, Froy Donato MD, 4,000 Units at 05/27/191728 ??? folic acid (FOLVITE) tablet 1 mg, 1 mg, Oral, Once a day, Misty Hathaway MD, 1 mg at 05/27/19819 ??? furosemide (LASIX) tablet 80 mg, 80 mg, Oral, BID DIURETIC, ALEIDA Phan, 80 mg at 05/27/191725 ??? glucagon (human recombinant) injection 1 mg, 1 mg, Intramuscular, PRN, Manoj Morrison, [employer] COMP[employer] ??? heparin (porcine) injection 1,000 Units, 1,000 Units, Intracatheter, Once per day on Fri, Debi Wetzel RN, 1,000 Units at 05/25/191935 ??? heparin (porcine) injection 1,000 Units, 1,000 Units, Intracatheter, Once per day on Fri Sat, Debi Wetzel RN, 1,000 Units at 05/25/191935 ??? heparin (porcine) injection 2,000 Units, 2,000 Units, Intravenous, During Dialysis, Debi Wetzel RN, 2,000 Units at 05/20/19 1130 ??? heparin (porcine) injection 4,300 Units, 4,300 Units, Intravenous, Once per day on Fri Sat,Florencia Moulton MD, 4,300 Units at 05/25/19 1801 ? ? insulin lispro (HumaLOG) injection 0-6 Units, 0-6 Units, Subcutaneous, AC & HS, 2 Units at 05/16/19 1746 AND POCT glucose, , , AC & HS, Manoj Morrison NP ??? iron sucrose (VENOFER) injection 200 mg, 200 mg, Intravenous, During Dialysis, Carmen Donato MD, 200 mg at 05/25/19 1804 ??? lidocaine (LIDOCARE) 4 % patch 2 patch, 2 patch, Transdermal, Once a day, Manoj Morrison NP, 2 patch at 05/27/19 0819 ??? MINERIN cream cream, , Topical, 2 times per day, Florencia Moulton MD ??? oxyCODONE-acetaminophen (PERCOCET) 5-325 MG 1 tablet, 1 tablet, Oral, Q6H PRN, Misty Hathwaay MD, 1 tablet at 05/25/19 1842 ??? polyethylene glycol (MIRALAX) packet 17 g, 17 g, Oral, Daily PRN, Mike Zamora MD, 17 g at 05/26/19 0601 ??? tamsulosin (FLOMAX) 24 hr capsule 0.4 mg, 0.4 mg, Oral, Nightly, Misty Hathaway MD, 0.4 mg at 05/26/197 ??? acetaminophen ??? glucose ??? dextrose 5 % and sodium chloride 0.45 % ??? dextrose ??? glucagon ??? oxyCODONE-acetaminophen ??? polyethylene glycol Physical Exam: General: awake and alert. In NAD Lungs: CTA B/L Heart: RRR, S1 and S2 without rubs Abdomen: Soft, NT/ND, + BS Ext: Without edema Labs: Recent Labs Lab Units 05/22/19 0708 SODIUM MMOL/L BLOOD mmol/L 135* POTASSIUM MMOL/L BLOOD mmol/L 3.8 CHLORIDE mmol/L 96* CO2 mmol/L 26 BUN MG/DL BLOOD mg/dL 42* CREATININE mg/dL 6.41* GLUCOSE MG/DL BLOOD mg/dL 146* CALCIUM MG/DL BLOOD mg/dL 8.4 ANION GAP BLOOD mmol/L 13 Recent Labs Lab Units 05/22/19 0708 SODIUM MMOL/L BLOOD mmol/L 135* POTASSIUM MMOL/L BLOOD mmol/L 3.8 CHLORIDE mmol/L 96* CO2 mmol/L 26 BUN MG/DL BLOOD mg/dL 42* CREATININE mg/dL 6.41* GLUCOSE MG/DL BLOOD mg/dL 146* CALCIUM MG/DL BLOOD mg/dL 8.4 Recent Labs Lab Units 05/22/19 0708 SODIUM MMOL/L BLOOD mmol/L 135* POTASSIUM MMOL/L BLOOD mmol/L 3.8 CHLORIDE mmol/L 96* CO2 mmol/L 26 BUN MG/DL BLOOD mg/dL 42* CREATININE mg/dL 6.41* GLUCOSE MG/DL BLOOD mg/dL 146* CALCIUM MG/DL BLOOD mg/dL 8.4 Recent Labs Lab Units 05/22/19 0708 WBC X(10)9/L BLOOD x10E9/L 2.4* HGB GM/DL BLOOD gm/dL 9.2* HCT % BLOOD % 29.9* PLT CT X(10)9/L BLOOD x10E9/L 209 Assessment/ Plan: Principal Problem: Toxic metabolic encephalopathy Active Problems: Debility Anemia of chronic renal failure Chronic kidney disease, Stage V Essential hypertension Hyperkalemia Hypervolemia Malignant neoplasm of prostate Moderate malnutrition Other hyperlipidemia Retention of urine Diastolic dysfunction Seroma Abnormality of gait End stage renal failure on dialysis Hyperglycemia LOS: 16 days Assessment/Plan ESRD: on dialysis now. HTN: reasonably controlled with dialysis Acute volume overload related to ESRD: compensated on dialysis and oral Lasix Anemia related to ESRD, iron deficiency: on iron replacment DM Left thigh seroma Hyperlipidemia:on statin Hyperkalemia from ESRD: on dialysis and this is better Generalized weakness from uremia: on rehab Metabolic acidosis: stable on dialysis Constipation: on bowel regimen Weakness: on rehab CARMEN DONATO MD * Manoj Morrison NP - 05/27/2019 5:21 PM CST HOSPITALIST PROGRESS NOTE Patient Name: Jules Mitchell : 1945 Medical Record: [id number] Admit date 05/11/19 DATE OF SERVICE 05/27/2019 ATTENDING PHYSICIAN Florencia Moulton MD ? CHIEF COMPLAINT Principal Problem: Debility Active Problems: Type 2 diabetes mellitus Anemia of chronic renal failure Chronic kidney disease, Stage V Essential hypertension Hyperkalemia Hypervolemia Malignant neoplasm of prostate Moderate malnutrition Other hyperlipidemia Retention of urine Diastolic dysfunction Seroma Abnormality of gait Toxic metabolic encephalopathy ? HISTORY OF PRESENT ILLNESS ?? The patient is a 73 y.o. y/o male with history of f prostate cancer, DM, and HTN presents to the [facility] of intermittent left leg pain since last week. he has left sided buttock pain that radiates down posterior aspect of leg to knee. Hx coagulopathy, Hx venous thromboembolism. Pt was in acute renal failure with volume overload. Seen by renal , initiated dialysis , ?? currently here for therapy Todays chief Complains gen weakness Left leg pain ?? Confused about details of history ?? Duration of problems- Intensity Type Associated symptoms Aggrevating/relieving factors ? History also obtained from review of patients previous acute hospitalization chart, current rehabilitation chart , discussion with family members in the room and discussion with nursing staff taking care of the patient. ? SUBJECTIVE 05/13 initial progress note The patient is being seen for follow-up of all current problems, BP, BS , HR, labs and strength. Follow up on pain, swallowing, bladder and bowel function. Patient denies any chest pain, palpitations, shortness of breath, cough, abdominal pain, nausea, vomiting, diarrhea or constipation. No overnight events. Denies pain. Pain controlled on meds prescribed. Bowel movement 05/10. Lactulose ordered. Refused last night suppository. Had bm today 05/13 bp low bp 103/61 DC norvasc - hold lisinopril x 2 days Has 800 ml urine output with current urine agents- DC ditropan per PMR. Bladder scan [phone] ml had to be straight cath 800 ml out PVR 600 ml Due for dialysis today followed by Dr Donato Case discussed with Dr. Moulton, physiatry. Minh burns added Liver enzymes OK Seen by Neuropsych Appetite good and states slept well. Patient participating with therapy and is doing well. No further needs expressed at this time. 1/17 The patient is being seen for follow-up of all current problems, BP, BS , HR, labs and strength. Follow up on pain, swallowing, bladder and bowel function. Patient denies any chest pain, palpitations, shortness of breath, cough, abdominal pain, nausea, vomiting, diarrhea or constipation. No overnight events. 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 Pain controlled on meds prescribed. Bowel movement 05/13 x 2. Pt seen this am sitting up in chair working with Zym[employer]. Discussed pt with Carlos. Walking 100 ft with therapy, eager for exercises today. Requesting topical agent for L knee pain- voltaren gel ordered. Lidocaine patch for L thigh pain- edema improved. 1500 ml off with dialysis yesterday- tolerated. PVR 238-242-303 ml, continue with PVR another day. Weight 130 lb Sugars stable 119-135 Afebrile. HR 60s bp 119/60, 108/62. sats 100 % RA Atenolol held today. Decrease lisinopril to 2.5 Appetite good and states slept well. Patient participating with therapy and is doing well. No further needs expressed at this time. 05/15 The patient is being seen for follow-up of all current problems, BP, BS , HR, labs and strength. Follow up on pain, swallowing, bladder and bowel function. Patient denies any chest pain, palpitations, shortness of breath, cough, abdominal pain, nausea, vomiting, diarrhea or constipation. No overnight events. Denies pain. Pain controlled on meds prescribed. Pain better with lidocaine and voltaren gel. Bowel movement 05/13 bp soft this am- hold atenolol x 2 days Hold lasix and lisonopril DC atenolol- feels dizzy with therapy Notified Renal Yuan. Dc lisinopril, wants to continue lasix BID pvr 278 ml, 330-224. Has x 1 straigh cath last night with 300 ml out urine. No weight recorded this am Sugars [phone]- Dialysis today, BP still soft 90/51, HR 57-64. Holding atenolol x 2 days and held lasix and lisinopril this am. PVR 278 ml 330-224, was cath x 1 today with 300 ml out Appetite good and states slept well. Patient participating with therapy and is doing well. No further needs expressed at this time. BP low still down to 80s On dialysis Called and D/W Dr Donato - continue lasix Since pt having good urine out put ?? DC Lisinopril AND CHIVO I 05/16 The patient is being seen for follow-up of all current problems, BP, BS , HR, labs and strength. Follow up on pain, swallowing, bladder and bowel function. Patient denies any chest pain, palpitations, shortness of breath, cough, abdominal pain, nausea, vomiting, diarrhea or constipation. No overnight events. Denies pain. Pain controlled on meds prescribed. Bowel movement today. Pain better with patch. Has not taken percocet since 05/13 Afebrile. HR 90s-80 bp 102/63 sats 98% RA. Still off most BP meds-monitor. 2000 ml off with dialysis. PVR 122-159-0 ml. Weigth stable 128 lb. Pt seen sitting up in chair watching tv, L thigh edema down. Sugars [phone] Labs done 05/15. Appetite good and states slept well. Patient participating with therapy and is doing well. No further needs expressed at this time. 05/17 Patient seen and evaluated on daily rounds. No overnight events reported. Patient has been participating with therapy and is doing well. Pt seen today sitting up in wheelchair. Pt denies pain at thistime, well controlled with current medications. Slept well and appetite good. Last BM yesterday, noissues. Voiding well. Continue dialysis. Patient denies any chest pain, palpitations, shortness of breath, cough, abdominal pain, nausea and vomiting, or constipation. BP 114/64 without BP meds, HR 64. BG stable. No other needs or concerns expressed at this time. 05/18 Patient seen and evaluated on daily rounds. No overnight events reported. Patient has been participating with therapy and is doing well. Pt seen today sitting up in wheelchair. Pt denies pain at thistime, not requiring pain medications. Slept okay and appetite good. Last BM today, no issues. Voiding well. PVRs 127-234 ml. Patient denies any chest pain, palpitations, shortness of breath, cough, abdominal pain, nausea and vomiting, or constipation. BP 105/57, HR 67. BG stable. Anticipate dialysis with labs today. No other needs or concerns expressed at this time. 05/19 Patient seen and evaluated on daily rounds. No overnight events reported. Patient has been participating with therapy and is doing well. Pt seen today sitting up in wheelchair. Pt denies pain at thistime, well controlled with current medications. Slept off and on and appetite good. Last BM today, no issues. Voiding well. PVR 190-195. Patient denies any chest pain, palpitations, shortness of breath, cough, abdominal pain, nausea and vomiting, or constipation. BP 90/49, HR 83. BG stable. Labs obtained yesterday, reviewed. No other needs or concerns expressed at this time. 05/20 Patient seen and evaluated on daily rounds. No overnight events reported. Patient has been participating with therapy and is doing well. Pt seen today sitting up in wheelchair. Pt reports he was sorewith therapy, but denies pain at this time, well controlled with current medications. Slept well and appetite good, but his uneaten breakfast tray was taken while he was in therapy. Last BM yesterday, no issues. Voiding well. Dialysis today. Patient denies any chest pain, palpitations, shortness ofbreath, cough, abdominal pain, nausea and vomiting, or constipation. BP 109/64, HR 83. Labs to be obtained today with dialysis. BG stable. No other needs or concerns expressed at this time. 05/21 Patient seen and evaluated on daily rounds. No overnight events reported. Patient has been participating with therapy and is doing well. Pt seen today sitting up in wheelchair. Pt denies pain at thistime, well controlled with current medications. Slept well and appetite good. Last BM yesterday, noissues. Voiding well. Patient denies any chest pain, palpitations, shortness of breath, cough, abdominal pain, nausea and vomiting, or constipation. BP 110/64, HR 79. BG stable. No other needs or concerns expressed at this time. 05/22 Patient seen and evaluated on daily rounds. No overnight events reported. Patient has been participating with therapy and is doing well. Pt seen today sitting up in wheelchair. Pt reports he had painto left heel level 10/10 this morning but denies pain at this time, well controlled with current medications. Mild discoloration and bogginess to bilateral heels. Podus boots ordered and applied. Wound care to see. Pt's family member called and reports Dr Donato requested an MRI of the hip earlier this week. Pt denies hip pain at this time. Will follow up with Dr Donato on Friday concerning this. Slept well and appetite good. Last BM 2 days ago, no issues. Voiding well, dialysis today. Patient denie s any chest pain, palpitations, shortness of breath, cough, abdominal pain, nausea and vomiting, orconstipation. BP 127/65, HR 80. BG stable. No other needs or concerns expressed at this time. 05/23 Patient seen and evaluated on daily rounds. No overnight events reported. Patient has been participating with therapy and is doing well. Pt seen today sitting up in wheelchair. Pt denies pain at thistime, well controlled with current medications. Podus boots in place. Slept well and appetite good.Last BM yesterday, no issues. Voiding well. Dialysis. Patient denies any chest pain, palpitations, shortness of breath, cough, abdominal pain, nausea and vomiting, or constipation. BP 120/92, HR 97. BG stable. No other needs or concerns expressed at this time. 05/24 The patient is being seen for follow-up of all current problems, BP, BS , HR, labs and strength. Follow up on pain, swallowing, bladder and bowel function. Patient denies any chest pain, palpitations, shortness of breath, cough, abdominal pain, nausea, vomiting, diarrhea or constipation. No overnight events. + L hip pain. Pain controlled on meds prescribed. Bowel movement 05/23. Sugars 113-138-[address] Moulton, physiatry. Labs due tomorrow with dialysis. Afebrile. HR 77-90 sats 97% RA bp 112/58 Ordered Hip and Pelvis xrays Appetite good and states slept well. Patient participating with therapy and is doing well. No further needs expressed at this time. 05/25 The patient is being seen for follow-up of all current problems, BP, BS , HR, labs and strength. Follow up on pain, swallowing, bladder and bowel function. Patient denies any chest pain, palpitations, shortness of breath, cough, abdominal pain, nausea, vomiting, diarrhea or constipation. No overnight events. Denies pain. Pain controlled on meds prescribed. Bowel movement 05/23 sugars 163-94 Hip and pelvis xrays from 05/24 noted Case discussed with Dr. Moulton, physiatry. 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 Notified SIMI winn that pt will need ortho follow up for severe L hip OA. Suggested Dr Bishop for follow up after DC. Appetite good and states slept well. Patient participating with therapy and is doing well. No further needs expressed at this time. 05/26 The patient is being seen for follow-up of all current problems, BP, BS , HR, labs and strength. Follow up on pain, swallowing, bladder and bowel function. Patient denies any chest pain, palpitations, shortness of breath, cough, abdominal pain, nausea, vomiting, diarrhea or constipation. No overnight events. + stable L hip pain. Pain controlled on meds prescribed. Bowel movement 05/23. Add lactulose x 2 doses today. Afebrile. HR 75-84 bp 112/72 sats 96% RA Weight 136 lb Sugars 102-126-101 Labs noted this am Case discussed with Dr. Moulton, physiatry. Appetite good and states slept well. Patient participating with therapy and is doing well. No further needs expressed at this time. 05/27 The patient is being seen for follow-up of all current problems, BP, BS , HR, labs and strength. Follow up on pain, swallowing, bladder and bowel function. Patient denies any chest pain, palpitations, shortness of breath, cough, abdominal pain, nausea, vomiting, diarrhea or constipation. No overnight events. Denies pain. Pain controlled on meds prescribed. Bowel movement 05/26 Due for dialysis today Sugars stable Due for DC to home tomorrow Case discussed with Dr. Moulton, physiatry. Afebrile, hr 80s bp 119/64 sats 99% RA Appetite good and states slept well. Patient participating with therapy and is doing well. No further needs expressed at this time. REVIEW OF SYSTEMS General: no weight loss, [...] the other 14 organ systems are negative CURRENT MEDICATIONS Current Facility-Administered Medications: ??? acetaminophen (TYLENOL) tablet 325 mg, 325 mg, PO/Per Tube, Q6H PRN, Misty Hathaway MD, 325 mgat 05/11/192320 ??? allopurinol (ZYLOPRIM) tablet 100 mg, 100 mg, Oral, Once a day, Misty Hathaway MD, 100 mg at 05/27/19818 ??? atorvastatin (LIPITOR) tablet 20 mg, 20 mg, Oral, Once a day, Misty Hathaway MD, 20 mg at 05/27/19819 ??? bisacodyl (DULCOLAX) suppository 10 mg, 10 mg, Rectal, Once, Luctashaa Sadl, CORK COMPOUNDER ??? dextrose (GLUTOSE) 40 % oral gel 15 g, 15 g, Oral, PRN, Emersona Lexil, CORK COMPOUNDER ??? dextrose 5 % and sodium chloride 0.45 % infusion, 50 mL/hr, Intravenous, PRN, Lucija Sadl, CORK COMPOUNDER ??? dextrose 50 % IV solution 25 g, 25 g, Intravenous, PRN, Lucija Sadl, CORK COMPOUNDER ??? Diclofenac Sodium (VOLTAREN) 1 % gel 2 g, 2 g, Topical, 2 times per day, Manoj Morrison, CORK COMPOUNDER, 2 g at 05/27/19 0824 ??? docusate sodium (COLACE) capsule 100 mg, 100 mg, Oral, Once a day, Misty Hathaway MD, 100 mg at 05/27/19819 ??? donepezil (ARICEPT) tablet 10 mg, 10 mg, Oral, Nightly, Misty Hathaway MD, 10 mg at 05/26/192045 ??? epoetin ashly-epbx (RETACRIT) 4,000 Units, 4,000 Units, Subcutaneous, T- w/Dialysis, Froy Donato MD, 4,000 Units at 05/25/19 1758 ??? folic acid (FOLVITE) tablet 1 mg, 1 mg, Oral, Once a day, Misty Hathaway MD, 1 mg at 05/27/19 0820 ??? furosemide (LASIX) tablet 80 mg, 80 mg, Oral, BID DIURETIC, ALEIDA Phan, 80 mg at 05/27/19 0820 ??? glucagon (human recombinant) injection 1 mg, 1 mg, Intramuscular, PRN, Manoj Morrison NP ??? heparin (porcine) injection 1,000 Units, 1,000 Units, Intracatheter, Once per day on Fri, Debi Wetzel RN, 1,000 Units at 05/25/191935 ??? heparin (porcine) injection 1,000 Units, 1,000 Units, Intracatheter, Once per day on Fri, Debi Wetzel RN, 1,000 Units at 05/25/191935 ??? heparin (porcine) injection 2,000 Units, 2,000 Units, Intravenous, During Dialysis, Debi Wetzel RN, 2,000 Units at 05/20/19 1130 ??? heparin (porcine) injection 4,300 Units, 4,300 Units, Intravenous, Once per day on Fri,Florencia Moulton MD, 4,300 Units at 05/25/19 1801 ? ? insulin lispro (HumaLOG) injection 0-6 Units, 0-6 Units, Subcutaneous, AC & HS, 2 Units at 05/16/19 1746 AND POCT glucose, , , AC & HS, Manoj Morrison NP ??? iron sucrose (VENOFER) injection 200 mg, 200 mg, Intravenous, During Dialysis, Carmen Donato MD, 200 mg at 05/25/19 1804 ??? lidocaine (LIDOCARE) 4 % patch 2 patch, 2 patch, Transdermal, Once a day, Manoj Morrison NP, 2 patch at 05/27/19 0819 ??? MINERIN cream cream, , Topical, 2 times per day, Florencia Moulton MD ??? oxyCODONE-acetaminophen (PERCOCET) 5-325 MG 1 tablet, 1 tablet, Oral, Q6H PRN, Misty Hathaway MD, 1 tablet at 05/25/19 1842 ??? polyethylene glycol (MIRALAX) packet 17 g, 17 g, Oral, Daily PRN, Mike Zamora MD, 17 g at 05/26/19 0601 ??? tamsulosin (FLOMAX) 24 hr capsule 0.4 mg, 0.4 mg, Oral, Nightly, Misty Hathaway MD, 0.4 mg at 05/26/192046 PHYSICAL EXAM WEIGHTS 136 lb 1 oz (61.7 kg) ?? General appearance: awake, alert, cooperative, no distress HEENT: Normocephalic, No icterus, No oral lesions, [...] without mass, non-tender, with normal bowel sounds, External Genitalia not examined, groin Extremities: no clubbing, cyanosis or edema, no calf tenderness Musculoskeletal:no swelling of joints.no redness, FROM otherjoints Psychologic: Mood and affect appropriate, no suicidal ideation. Skin: No rash, swelling or erythema identified . Warm and Dry, R chest dialysis cath with tegaderm dressing clean dry and intact. Neurologic/WHITESMITH:Alert & oriented x 2 confused at times, poor historian, Speech normal, Tongue and uvula central Strength is 4/5 in all extremities ?? No clonus Gait not tested ? Please see height, weight, and BP reported elsewhere as part of this encounter ?? LABS CBC: Recent Labs Lab Units 05/22/19 0708 WBC X(10)9/L BLOOD x10E9/L 2.4* HGB GM/DL BLOOD gm/dL 9.2* PLT CT X(10)9/L BLOOD x10E9/L 209 MCV FL BLOOD fl 98.7* BMP: Recent Labs Lab Units 05/22/19 0708 SODIUM MMOL/L BLOOD mmol/L 135* POTASSIUM MMOL/L BLOOD mmol/L 3.8 CHLORIDE mmol/L 96* CO2 mmol/L 26 BUN MG/DL BLOOD mg/dL 42* CREATININE mg/dL 6.41* GLUCOSE MG/DL BLOOD mg/dL 146* CALCIUM MG/DL BLOOD mg/dL 8.4 DATA Vitals: 05/26/19 0730 05/26/19199905/27/19 0602 05/27/19 0730 BP: 139/64 137/62 119/64 Pulse: 88 74 85 Resp: 16 16 18 Temp: 98 ??F (36.7 ??C) 99.1 ??F (37.3 ??C) 98.7 ??F (37.1 ??C) TempSrc: Oral Oral Oral SpO2: 100% 100% 99% Weight: 136 lb (61.7 kg) Height: Weights (last 3 days) Date/Time Weight 05/27/19 0602 136 lb (61.7 kg) 05/26/19 0617 136 lb (61.7 kg) 05/24/19 0600 130 lb 8 oz (59.2 kg) @ANTICOAGSUMMARY@ @FLOWDATE(2706:LAST)@ Intake/Output Summary (Last 24 hours) at 05/27/2019 1721 Last data filed at 05/27/2019 1245 Gross per 24 hour Intake 480 ml Output -- Net 480 ml IMAGING STUDIES & OTHER STUDIES ??2 views right hip 2 views left hip AP pelvis ?? INDICATION: Bilateral hip pain and pelvic pain. ?? FINDINGS: Right hip: No acute fracture, malalignment, or degenerative disease. ?? Left hip: Marked severe osteoarthrosis left hip joint with [id number] contact throughout the central, superior, superolateral portions of the articulation. Subchondral sclerosis and cystic change femoral head and acetabulum. No acute fracture. ?? AP pelvis: Anatomic alignment. No other sites of degenerative disease. No acute pathology. ?? Reading Radiologist: Milana Rodríguez MD on 05/24/2019 at 5:22 PM ASSESSMENT AND PLAN Principal Problem: Toxic metabolic encephalopathy Active Problems: Debility Anemia of chronic renal failure Chronic kidney disease, Stage V Essential hypertension Hyperkalemia Hypervolemia Malignant neoplasm of prostate Moderate malnutrition Other hyperlipidemia Retention of urine Diastolic dysfunction Seroma Abnormality of gait End stage renal failure on dialysis Hyperglycemia Debility Active Problems: Type 2 diabetes mellitus Anemia of chronic renal failure Chronic kidney disease, Stage V Essential hypertension Hyperkalemia Hypervolemia Malignant neoplasm of prostate Moderate malnutrition Other hyperlipidemia Retention of urine Diastolic dysfunction Seroma Abnormality of gait Toxic metabolic encephalopathy Acute renal failure, CKD LE edema ESRD,with volume overload, on dialysis now Renal consulted Echo done 04/29 Still on lasix 80 bid watch BP 05/[address] Donato, dialysis today 05/14 PVR 238-242-303 ml, continue with PVR another day. Weight 130 lb 05/15 bun 45 cr 6.77 05/18 bun 67, cr 7.31, on dialysis 05/19 ok to d/c PVRs 05/26 bun 15 cr 3.48 Diastolic grade 1 heart failure Ef 60% per echo 04/29 Lasix, dialysis 05/14 weight 130 lb 05/16 wt 128 lb 05/20 wt 130 lb 05/23 wt 127 lb 05/24 wt 130 lb 05/27 wt 136 lb L thigh seroma/ L hip pain/ severe OA to L hip Dopplers done 04/29 negative for dvt 05/24 Ordered Hip and Pelvis xrays 05/26 discussed xray results with family and dr moulton Follow up with ortho Bishop for further workup after DC Hypertension,/ hypotension / bradycardia Continue meds 05/13 bp 103/61 on norvasc, tenormin , lasix 80 bid, lisinopril 5 DC norvasc - parameters added to bp meds Hold lisinopril x 2 days 05/14 Decrease lisinopril to 2.5. bp 108/60 DC atenolol HR 55-64 DC lisimopril 05/15 bp 90/51 05/16 bp 115/60, 102/63, 83/55, 127/83 hr 80-94 05/17 BP 114/64, stable at this time 05/26 BP 120/92, stable Hyperkalemia, related to the chronic kidney disease, on dialysis 05/13 k 3.6 05/15 k 4.4 05/18 K 4.6, stable at this time 05/26 k 4.0 Hypocalcemia 05/15 ca 8.2 05/18 Ca 8.2, stable at this time 05/26 ca 8.5 Gout allopurinol Metabolic acidosis from the renal failure, better with dialysis Anemia, most recent hemoglobin 8.7, , monitor H/H 05/13 h and h 8.8/ 29.1 05/15 h and h 7.9/ .1 Vit b 12 349 Epoetin per renal and IV venofer 05/18 H&H 8.1/.4, stable at this time 05/22 h and h 9.2/ 29.9 05/26 h and h 9.2/.1 Altered sugars aacu, SSI 05/13 poct 121 05/14 poct 119-135 05/15 Sugars [phone] 05/16 Sugars 084-185-556-206-210 05/17 bg 112-173, stable at this time 05/21 poct 109-133 05/24 Sugars 113-138-106 05/25 sugars 163-94 05/26 sugars 102-126-101 05/27 poct 107-114-93 ?? h/oProstate cancer Bladder management / hx of orchiectomy / urine retention in acutre Voiding ok Ditropan and flomax 05/13 had high volume PVR , dc ditropan. 05/16 PVR los volumes 122-159-0 ml last night 05/18 PVRs 127-234, will monitor 05/19 ok to d/c PVRs Dementia/ cognitive impairment aricept neuropsych consult DVT prophylaxis: on Lovenox Minh hose Echo 05/01/19: Mild concentric left ventricular hypertrophy. Impaired diastolic relaxation Grade I. Ejection fraction is visually estimated at 60 %. There is mild enlargement of left atrium. Mild aortic valve regurgitation. ?? Pain management Today's pain score 0 05/13 percocet 6 q 6 prn, tylenol Lidocaine patch and voltaren 05/18 denies pain ?? Bowel management . Titrate bowel medications for constipation/diarrhea. 05/13 had bm 05/26 had bm, refused lactulose Skin care 05/22 bilateral heels boggy and discolored, podus boots ordered and applied. Wound care to see. Full Resuscitation ? Electronically signed by: MANOJ MORRISON NP, 05/27/2019 5:21 PM Cosigned by Misty Hathaway MD at 06/04/2019 8:12 AM GLOVE TAGGER Associated attestation - Misty Hathaway MD - 06/04/2019 9:12 AM EST The patient is being seen for follow-up of all current problems, BP, BS , HR, labs and strength. Follow up on pain, swallowing, bladder and bowel function. Strength improving, able to do therapy ok. I saw, evaluated and examined the patient face to face in conjunction with the CORK COMPOUNDER and agree with the management and disposition of the patient. History also obtained from Nurse and staff about how the patient did overnight and during the day. I performed mario portions of the follow up history, examination, review of labs and radiology and evaluation. I agree with the subjective, physical exam and assessment and plan details as outlined in the note below. Discussed the mario medical decision making- both assessment and plan, rehabilitation goals and treatment plan with patient, CORK COMPOUNDER , nursing staff, farm operator and the members of the team. * Carmen Donato MD - 05/26/2019 6:20 PM CST Nephrology Progress Note Jules Mitchell [id number] Subjective: Patient seen and examined, denies fever, chills, chest pain, sob, cough, changes in appetite, N/V, diarrhea, abdominal pain, dysuria Objective: Vital signs: 05/17/191952 BP: 118/56 Pulse: 67 Resp: 16 Temp: 98.4 ??F (36.9 ??C) TempSrc: Oral SpO2: 100% Weight: Height: Physical Exam: General: awake and alert. In NAD Lungs: CTA B/L Heart: RRR, S1 and S2 without rubs Abdomen: Soft, NT/ND, + BS Ext: Without edema Labs: Recent Labs Lab Units 05/22/19 0708 05/20/19 1016 SODIUM MMOL/L BLOOD mmol/L 135* 137 POTASSIUM MMOL/L BLOOD mmol/L 3.8 5.6* CHLORIDE mmol/L 96* 99 CO2 mmol/L 26 23 BUN MG/DL BLOOD mg/dL 42* 55* CREATININE mg/dL 6.41* 7.67* GLUCOSE MG/DL BLOOD mg/dL 146* 105 CALCIUM MG/DL BLOOD mg/dL 8.4 8.6 ANION GAP BLOOD mmol/L 13 15 Recent Labs Lab Units 05/22/19 0708 05/20/19 1016 SODIUM MMOL/L BLOOD mmol/L 135* 137 POTASSIUM MMOL/L BLOOD mmol/L 3.8 5.6* CHLORIDE mmol/L 96* 99 CO2 mmol/L 26 23 BUN MG/DL BLOOD mg/dL 42* 55* CREATININE mg/dL 6.41* 7.67* GLUCOSE MG/DL BLOOD mg/dL 146* 105 CALCIUM MG/DL BLOOD mg/dL 8.4 8.6 Recent Labs Lab Units 05/22/19 0708 05/20/19 1016 SODIUM MMOL/L BLOOD mmol/L 135* 137 POTASSIUM MMOL/L BLOOD mmol/L 3.8 5.6* CHLORIDE mmol/L 96* 99 CO2 mmol/L 26 23 BUN MG/DL BLOOD mg/dL 42* 55* CREATININE mg/dL 6.41* 7.67* GLUCOSE MG/DL BLOOD mg/dL 146* 105 CALCIUM MG/DL BLOOD mg/dL 8.4 8.6 Recent Labs Lab Units 05/22/19 0708 WBC X(10)9/L BLOOD x10E9/L 2.4* HGB GM/DL BLOOD gm/dL 9.2* HCT % BLOOD % 29.9* PLT CT X(10)9/L BLOOD x10E9/L 209 Assessment/ Plan: Principal Problem: Toxic metabolic encephalopathy Active Problems: Debility Anemia of chronic renal failure Chronic kidney disease, Stage V Essential hypertension Hyperkalemia Hypervolemia Malignant neoplasm of prostate Moderate malnutrition Other hyperlipidemia Retention of urine Diastolic dysfunction Seroma Abnormality of gait End stage renal failure on dialysis Hyperglycemia LOS: 15 days Assessment/Plan ESRD: plan to have dialysis tomorrow. HTN: reasonably controlled with dialysis Acute volume overload related to ESRD: compensated on dialysis and oral Lasix Anemia related to ESRD, iron deficiency: on iron replacment DM Left thigh seroma Hyperlipidemia:on statin Hyperkalemia from ESRD: on dialysis and this is better Generalized weakness from uremia: on rehab Metabolic acidosis: stable on dialysis Constipation: on bowel regimen Weakness: on rehab CARMEN DONATO MD * Florencia Moulton MD - 05/26/2019 2:39 PM CST Rehabilitation Physician Progress Note Patient Name: Jules Mitchell Age: 73 y.o. Patient's Primary Care Physician: Dr. Kwame Berg LOS: 15 DAYS This was a face to face visit with the patient Seen and examined today for rehab and medical issues related to debility with encephalopathy. CC I am okay HPI and Interval history: Watching pvrs-dced ditropan Less than 300 cc Tolerating HD Blood sugars are below 150 PVRs remain below 300 cc Ambulating better Family teaching Tolerating dialysis Addressing PVRs BP low unclear if symptomatic Continues improved ambulation Improving mood Family wishes MR for left leg Patient is walking over 180 feet Reviewed work up on admission for left leg pain No xrays done by acute team-ordered xrays xrays demonstrated severe bone on bone arthritis with cysts Updated family and patient ORTHO referral recommended Blood glucose stable DC planning underway Subjective Review of Systems Denies chest pain, dyspnea or nausea. Pain controlled PHYSICAL EXAM: (Retired) Vitals (last 3 days) Date/Time Temp Pulse Resp BP SpO2 Weight 05/26/19 0617 -- -- -- -- -- 136 lb (61.7 kg) 05/25/19 07 97.3 ??F (36.3 ??C) 75 18 112/72 96 % -- 05/24/191999 98.4 ??F (36.9 ??C) 83 16 139/71 99 % -- 05/24/19 1729 -- -- -- 101/60 -- -- 05/24/19 0846 -- 89 -- 112/58 97 % -- 05/24/19 0700 97 ??F (36.1 ??C) 77 16 95/55 98 % -- 05/24/19 06 -- -- -- -- -- 130 lb 8 oz (59.2 kg) 05/23/192030 97.1 ??F (36.2 ??C) 79 16 133/67 99 % -- 05/23/19 0730 98.9 ??F (37.2 ??C) 97 20 (!) 120/92 98 % -- 05/23/19 0353 -- -- -- -- -- 127 lb 11.2 oz (57.9 kg) Blood sugars: POC Glucose POC Glucose 05/25/19 1645 102 Weights (last 3 days) Date/Time Weight 05/26/19 0617 136 lb (61.7 kg) 05/24/19 0600 130 lb 8 oz (59.2 kg) 05/23/19 0353 127 lb 11.2 oz (57.9 kg) GENERAL: Alert, NAD smiling HEENT: EOMI MMM NECK: no JVD LUNGS: Clear to auscultation no wheezes no dyspnea CV: RR ABDOMEN: Soft NT to palpation EXTREMITIES: No new edema SKIN: No new issues TONE: normal MUSCULOSKELETAL: UE without weakness RLE antigravity LLE with hip flexion, knee extension, ankle dorsiflexion-functional ROM and strength NEURO: No tremors PSYCH: SMILING Lab Data Reviewed current lab results available to me today. Lab Results Component Value Date WBC 2.4 (L) 05/22/2019 HGB 9.2 (L) 05/22/2019 HCT 29.9 (L) 05/22/2019 MCV 98.7 (H) 05/22/2019 PLT 209 05/22/2019 Lab Results Component Value Date GLUCOSE 146 (H) 05/22/2019 CALCIUM 8.4 05/22/2019 NA 135 (L) 05/22/2019 K 3.8 05/22/2019 CO2 26 05/22/2019 CL 96 (L) 05/22/2019 BUN 42 (H) 05/22/2019 CREATININE 6.41 (H) 05/22/2019 ANIONGAP 13 05/22/2019 Anemia leukopenia ESRD Imaging Reviewed current imaging results available to me today. No results found. Allergies No Known Allergies Medication List Scheduled/Continuous Medications Scheduled Medication Dose/Rate, Route, Frequency Last Action allopurinol (ZYLOPRIM) tablet 100 mg 100 mg, PO, Once a day Given: 05/26 805 atorvastatin (LIPITOR) tablet 20 mg 20 mg, PO, Once a day Given: 05/26 805 bisacodyl (DULCOLAX) suppository 10 mg 10 mg, RE, Once Ordered Diclofenac Sodium (VOLTAREN) 1 % gel 2 g 2 g, TOP, BID Given: 05/26 806 docusate sodium (COLACE) capsule 100 mg 100 mg, PO, Once a day Given: 05/26 806 donepezil (ARICEPT) tablet 10 mg 10 mg, PO, Nightly Given: 05/25 2124 epoetin ashly-epbx (RETACRIT) 4,000 Units 4,000 Units, SC, T-Th-Sat w/Dialysis Given: 05/25 175 folic acid (FOLVITE) tablet 1 mg 1 mg, PO, Once a day Given: 05/26 08 furosemide (LASIX) tablet 80 mg 80 mg, PO, BID DIURETIC Given: 05/26 08 heparin (porcine) injection 1,000 Units 1,000 Units, IK, 3x/week in HD Given: 05/25 1935 heparin (porcine) injection 1,000 Units 1,000 Units, IK, 3x/week in HD Given: 05/25 1935 heparin (porcine) injection 2,000 Units 2,000 Units, IV, During Dialysis Given: 05/20 113 heparin (porcine) injection 4,300 Units 4,300 Units, IV, 3x/week in HD Given: 05/25 180 insulin lispro (HumaLOG) injection 0-6 Units 2 Units, SC, AC & HS Given - Witness Not Required:05/16 174 iron sucrose (VENOFER) injection 200 mg 200 mg, IV, During Dialysis Given: 05/25 1803 lactulose (CHRONULAC) 10 GM/15ML solution 20 g 20 g, PO, BID Ordered lidocaine (LIDOCARE) 4 % patch 2 patch 2 patch, TD, Once a day Medication Applied: 05/26 806 MINERIN cream cream No Dose/Rate, TOP, BID Given: 05/26 805 tamsulosin (FLOMAX) 24 hr capsule 0.4 mg 0.4 mg, PO, Nightly Given: 05/25 2124 Current Functional Status reviewed today: Distant supervision for gait Distant supervision for ADLs Section GG CARE Scores Physical Therapy? Car Transfer Car Transfer - CARE Score: 4 (05/25/19 1507 : Kylie Sanchez, PT) Walk 10 Feet Walk 10 Feet - CARE Score: 4 (05/25/19 1507 : Kylie Sanchez, PT) Walk 50 Feet with Two Turns Walk 50 Feet with Two Turns - CARE Score: 4 (05/25/19 1507 : Kylie Sanchez, PT) Walk 150 Feet Walk 150 Feet - CARE Score: 4 (05/25/19 1507 : Kylie Sanchez, PT) Walking 10 Feet on Uneven Surfaces Walking 10 Feet on Uneven Surfaces - CARE Score: 4 (05/25/19 1507 : Kylie Sanchez PT) 1 Step (Curb) 1 Step (Curb) - CARE Score: 4 (05/25/19 1507 : Kylie Sanchez PT) 4 Steps 4 Steps - CARE Score: 4 (05/25/19 1507 : Kylie Sanchez PT) 12 Steps 12 Steps - CARE Score: 4 (05/25/19 1507 : Kylie Sanchez PT) Picking Up Object Picking Up Object - CARE Score: 4 (05/25/19 1507 : Kyile Sanchez PT) Wheel 50 Feet with Two Turns Wheel 50 Feet with Two Turns - CARE Score: 3 (05/25/19 1507 : Kylie Sanchez PT) Wheel 150 Feet Wheel 150 Feet - CARE Score: 2 (05/25/19 1507 : Kylie Sanchez PT) BARRIERS: Cognitive impairments anemia arthritis severe hips Assessment and Plan 1.Etiologic Diagnosis: Encephalopathy in setting of new renal failure-may have dementia-on aricept.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 Improved attention and expression-at baseline 2. Gait disorder multifactorial with noted severe arthritis Endurance training progressing well. Patient is ambulating with RW at distant supervision 3. ESRD: HD per dr donato 4. Urinary retention, resolved. Off ditropan, all PVR's below 300 cc. Continuing Flomax. 5. Osteoarthritis: Voltaren gel, prn oral analgesics.-for right hip needs ORTHO evaluation 6. Dyslipidemia: continuing statin. 7. History of gout: Allopurinol. No new joint complaints. 8. Left hip arthritis, severe-follow up with ORTHO Dr. Bishop Co-Morbidities that are continuing to impact the rehab process: Problem List: 2019-04: Hyperglycemia 2019-04: Retention of urine 2019-04: Diastolic dysfunction 2019-04: Seroma 2019-04: Abnormality of gait 2019-04: Toxic metabolic encephalopathy 2019-04: End stage renal failure on dialysis 2019-04: Debility 2019-04: Moderate malnutrition 2019-04: Anemia of chronic renal failure 2019-04: Chronic kidney disease, Stage V 2019-04: Essential hypertension 2019-04: Hyperkalemia 2019-04: Hypervolemia 2019-04: Malignant neoplasm of prostate 2019-04: Other hyperlipidemia 2019-04: Metabolic acidosis 2019-04: Latent autoimmune diabetes mellitus in adult Continue therapies. Continue inpatient comprehensive interdisciplinary rehabilitation to address strengthening, mobility skills, self care, cognitive functioning, speech, communication and swallowing needs. The patient continues to require the interdisciplinary team approach and 24 hour monitoring. ADDITIONAL INFORMATION: DC planned for Friday EDUCATION/PT TEACHING: hip management EQUIPMENT: WW DESTINATION: home CANDI: 05/28/2019 FOLLOW UP PLANS: Dr Yehuda Bishop HD as OP , FLORENCIA ALBERTS MD 05/26/19 2:39 PM * Manoj Morrison NP - 05/26/2019 10:54 AM CST HOSPITALIST PROGRESS NOTE Patient Name: Jules Mitchell : 1945 Medical Record: [id number] Admit date 05/11/19 DATE OF SERVICE 05/26/2019 ATTENDING PHYSICIAN Florencia Moulton MD ? CHIEF COMPLAINT Principal Problem: Debility Active Problems: Type 2 diabetes mellitus Anemia of chronic renal failure Chronic kidney disease, Stage V Essential hypertension Hyperkalemia Hypervolemia Malignant neoplasm of prostate Moderate malnutrition Other hyperlipidemia Retention of urine Diastolic dysfunction Seroma Abnormality of gait Toxic metabolic encephalopathy ? HISTORY OF PRESENT ILLNESS ?? The patient is a 73 y.o. y/o male with history of f prostate cancer, DM, and HTN [facility] intermittent left leg pain since last week. he has left sided buttock pain that radiates down posterior aspect of leg to knee. Hx coagulopathy, Hx venous thromboembolism. Pt was in acute renal failure with volume overload. Seen by renal , initiated dialysis , ?? currently here for therapy Todays chief Complains gen weakness Left leg pain ?? Confused about details of history ?? Duration of problems- Intensity Type Associated symptoms Aggrevating/relieving factors ? History also obtained from review of patients previous acute hospitalization chart, current rehabilitation chart , discussion with family members in the room and discussion with nursing staff taking care of the patient. ? SUBJECTIVE 05/13 initial progress note The patient is being seen for follow-up of all current problems, BP, BS , HR, labs and strength. Follow up on pain, swallowing, bladder and bowel function. Patient denies any chest pain, palpitations, shortness of breath, cough, abdominal pain, nausea, vomiting, diarrhea or constipation. No overnight events. Denies pain. Pain controlled on meds prescribed. Bowel movement 05/10. Lactulose ordered. Refused last night suppository. Had bm today 05/13 bp low bp 103/61 DC norvasc - hold lisinopril x 2 days Has 800 ml urine output with current urine agents- DC ditropan per PMR. Bladder scan [phone] ml had to be straight cath 800 ml out PVR 600 ml Due for dialysis today followed by Dr Donato Case discussed with Dr. Moulton, physiatry. Minh burns added Liver enzymes OK Seen by Neuropsych Appetite good and states slept well. Patient participating with therapy and is doing well. No further needs expressed at this time. 05/14 The patient is being seen for follow-up of all current problems, BP, BS , HR, labs and strength. Follow up on pain, swallowing, bladder and bowel function. Patient denies any chest pain, palpitations, shortness of breath, cough, abdominal pain, nausea, vomiting, diarrhea or constipation. No overnight events. 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 Pain controlled on meds prescribed. Bowel movement 05/13 x 2. Pt seen this am sitting up in chair working with [employer]. Discussed pt with Carlos. Walking 100 ft with therapy, eager for exercises today. Requesting topical agent for L knee pain- voltaren gel ordered. Lidocaine patch for L thigh pain- edema improved. 1500 ml off with dialysis yesterday- tolerated. PVR 238-242-303 ml, continue with PVR another day. Weight 130 lb Sugars stable 119-135 Afebrile. HR 60s bp 119/60, 108/62. sats 100 % RA Atenolol held today. Decrease lisinopril to 2.5 Appetite good and states slept well. Patient participating with therapy and is doing well. No further needs expressed at this time. 05/15 The patient is being seen for follow-up of all current problems, BP, BS , HR, labs and strength. Follow up on pain, swallowing, bladder and bowel function. Patient denies any chest pain, palpitations, shortness of breath, cough, abdominal pain, nausea, vomiting, diarrhea or constipation. No overnight events. Denies pain. Pain controlled on meds prescribed. Pain better with lidocaine and voltaren gel. Bowel movement 05/13 bp soft this am- hold atenolol x 2 days Hold lasix and lisonopril DC atenolol- feels dizzy with therapy Notified Bandar Donato. Dc lisinopril, wants to continue lasix BID pvr 278 ml, 330-224. Has x 1 straigh cath last night with 300 ml out urine. No weight recorded this am Sugars [phone]- Dialysis today, BP still soft 90/51, HR 57-64. Holding atenolol x 2 days and held lasix and lisinopril this am. PVR 278 ml 330-224, was cath x 1 today with 300 ml out Appetite good and states slept well. Patient participating with therapy and is doing well. No further needs expressed at this time. BP low still down to 80s On dialysis Called and D/W Dr Donato - continue lasix Since pt having good urine out put ?? DC Lisinopril AND CHIVO I 05/16 The patient is being seen for follow-up of all current problems, BP, BS , HR, labs and strength. Follow up on pain, swallowing, bladder and bowel function. Patient denies any chest pain, palpitations, shortness of breath, cough, abdominal pain, nausea, vomiting, diarrhea or constipation. No overnight events. Denies pain. Pain controlled on meds prescribed. Bowel movement today. Pain better with patch. Has not taken percocet since 05/13 Afebrile. HR 90s-80 bp 102/63 sats 98% RA. Still off most BP meds-monitor. 2000 ml off with dialysis. PVR 122-159-0 ml. Weigth stable 128 lb. Pt seen sitting up in chair watching tv, L thigh edema down. Sugars [phone] Labs done 05/15. Appetite good and states slept well. Patient participating with therapy and is doing well. No further needs expressed at this time. 05/17 Patient seen and evaluated on daily rounds. No overnight events reported. Patient has been participating with therapy and is doing well. Pt seen today sitting up in wheelchair. Pt denies pain at thistime, well controlled with current medications. Slept well and appetite good. Last BM yesterday, noissues. Voiding well. Continue dialysis. Patient denies any chest pain, palpitations, shortness of breath, cough, abdominal pain, nausea and vomiting, or constipation. BP 114/64 without BP meds, HR 64. BG stable. No other needs or concerns expressed at this time. 05/18 Patient seen and evaluated on daily rounds. No overnight events reported. Patient has been participating with therapy and is doing well. Pt seen today sitting up in wheelchair. Pt denies pain at thistime, not requiring pain medications. Slept okay and appetite good. Last BM today, no issues. Voiding well. PVRs 127-234 ml. Patient denies any chest pain, palpitations, shortness of breath, cough, abdominal pain, nausea and vomiting, or constipation. BP 105/57, HR 67. BG stable. Anticipate dialysis with labs today. No other needs or concerns expressed at this time. 05/19 Patient seen and evaluated on daily rounds. No overnight events reported. Patient has been participating with therapy and is doing well. Pt seen today sitting up in wheelchair. Pt denies pain at thistime, well controlled with current medications. Slept off and on and appetite good. Last BM today, no issues. Voiding well. PVR 190-195. Patient denies any chest pain, palpitations, shortness of breath, cough, abdominal pain, nausea and vomiting, or constipation. BP 90/49, HR 83. BG stable. Labs obtained yesterday, reviewed. No other needs or concerns expressed at this time. 05/20 Patient seen and evaluated on daily rounds. No overnight events reported. Patient has been participating with therapy and is doing well. Pt seen today sitting up in wheelchair. Pt reports he was sorewith therapy, but denies pain at this time, well controlled with current medications. Slept well and appetite good, but his uneaten breakfast tray was taken while he was in therapy. Last BM yesterday, no issues. Voiding well. Dialysis today. Patient denies any chest pain, palpitations, shortness of breath, cough, abdominal pain, nausea and vomiting, or constipation. BP 109/64, HR 83. Labs to be obtained today with dialysis. BG stable. No other needs or concerns expressed at this time. 05/21 Patient seen and evaluated on daily rounds. No overnight events reported. Patient has been participating with therapy and is doing well. Pt seen today sitting up in wheelchair. Pt denies pain at thistime, well controlled with current medications. Slept well and appetite good. Last BM yesterday, noissues. Voiding well. Patient denies any chest pain, palpitations, shortness of breath, cough, abdominal pain, nausea and vomiting, or constipation. BP 110/64, HR 79. BG stable. No other needs or concerns expressed at this time. 05/22 Patient seen and evaluated on daily rounds. No overnight events reported. Patient has been participating with therapy and is doing well. Pt seen today sitting up in wheelchair. Pt reports he had painto left heel level 10/10 this morning but denies pain at this time, well controlled with current medications. Mild discoloration and bogginess to bilateral heels. Podus boots ordered and applied. Wound care to see. Pt's family member called and reports Dr Donato requested an MRI of the hip earlier this week. Pt denies hip pain at this time. Will follow up with Dr Donato on Friday concerning this. Slept well and appetite good. Last BM 2 days ago, no issues. Voiding well, dialysis today. Patient denie s any chest pain, palpitations, shortness of breath, cough, abdominal pain, nausea and vomiting, orconstipation. BP 127/65, HR 80. BG stable. No other needs or concerns expressed at this time. 05/23 Patient seen and evaluated on daily rounds. No overnight events reported. Patient has been participating with therapy and is doing well. Pt seen today sitting up in wheelchair. Pt denies pain at thistime, well controlled with current medications. Podus boots in place. Slept well and appetite good.Last BM yesterday, no issues. Voiding well. Dialysis. Patient denies any chest pain, palpitations, shortness of breath, cough, abdominal pain, nausea and vomiting, or constipation. BP 120/92, HR 97. BG stable. No other needs or concerns expressed at this time. 05/24 The patient is being seen for follow-up of all current problems, BP, BS , HR, labs and strength. Follow up on pain, swallowing, bladder and bowel function. Patient denies any chest pain, palpitations, shortness of breath, cough, abdominal pain, nausea, vomiting, diarrhea or constipation. No overnight events. + L hip pain. Pain controlled on meds prescribed. Bowel movement 05/23. Sugars [phone] Moulton, physiatry. Labs due tomorrow with dialysis. Afebrile. HR 77-90 sats 97% RA bp 112/58 Ordered Hip and Pelvis xrays Appetite good and states slept well. Patient participating with therapy and is doing well. No further needs expressed at this time. 05/25 The patient is being seen for follow-up of all current problems, BP, BS , HR, labs and strength. Follow up on pain, swallowing, bladder and bowel function. Patient denies any chest pain, palpitations, shortness of breath, cough, abdominal pain, nausea, vomiting, diarrhea or constipation. No overnight events. Denies pain. Pain controlled on meds prescribed. Bowel movement 05/23 sugars 163-94 Hip and pelvis xrays from 05/24 noted Case discussed with Dr. Moulton, physiatry. 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 Notified SIMI winn that pt will need ortho follow up for severe L hip OA. Suggested Dr Bishop for follow up after DC. Appetite good and states slept well. Patient participating with therapy and is doing well. No further needs expressed at this time. 05/26 The patient is being seen for follow-up of all current problems, BP, BS , HR, labs and strength. Follow up on pain, swallowing, bladder and bowel function. Patient denies any chest pain, palpitations, shortness of breath, cough, abdominal pain, nausea, vomiting, diarrhea or constipation. No overnight events. + stable L hip pain. Pain controlled on meds prescribed. Bowel movement 05/23. Add lactulose x 2 doses today. Afebrile. HR 75-84 bp 112/72 sats 96% RA Weight 136 lb Sugars 102-126-101 Labs noted this am Case discussed with Dr. Moulton, physiatry. Appetite good and states slept well. Patient participating with therapy and is doing well. No further needs expressed at this time. REVIEW OF SYSTEMS General: no weight loss, [...] the other 14 organ systems are negative CURRENT MEDICATIONS Current Facility-Administered Medications: ??? acetaminophen (TYLENOL) tablet 325 mg, 325 mg, PO/Per Tube, Q6H PRN, Misty Hathaway MD, 325 mgat 05/11/192320 ??? allopurinol (ZYLOPRIM) tablet 100 mg, 100 mg, Oral, Once a day, Misty Hathaway MD, 100 mg at 05/26/19805 ??? atorvastatin (LIPITOR) tablet 20 mg, 20 mg, Oral, Once a day, Misty Hathaway MD, 20 mg at 05/26/19805 ??? bisacodyl (DULCOLAX) suppository 10 mg, 10 mg, Rectal, Once, Manoj Morrison, CORK COMPOUNDER ??? dextrose (GLUTOSE) 40 % oral gel 15 g, 15 g, Oral, PRN, Manoj Elliottl, CORK COMPOUNDER ??? dextrose 5 % and sodium chloride 0.45 % infusion, 50 mL/hr, Intravenous, PRN, Manoj Morrison, CORK COMPOUNDER ??? dextrose 50 % IV solution 25 g, 25 g, Intravenous, PRN, Lucija Sadl, CORK COMPOUNDER ??? Diclofenac Sodium (VOLTAREN) 1 % gel 2 g, 2 g, Topical, 2 times per day, Manoj Morrison NP, 2 g at 05/26/19806 ??? docusate sodium (COLACE) capsule 100 mg, 100 mg, Oral, Once a day, Misty Hathaway MD, 100 mg at 05/26/19806 ??? donepezil (ARICEPT) tablet 10 mg, 10 mg, Oral, Nightly, Misty Hathaway MD, 10 mg at 05/25/192124 ??? epoetin ashly-epbx (RETACRIT) 4,000 Units, 4,000 Units, Subcutaneous, w/Dialysis, Froy Donato MD, 4,000 Units at 05/25/19 1758 ??? folic acid (FOLVITE) tablet 1 mg, 1 mg, Oral, Once a day, Misty Hathaway MD, 1 mg at 05/26/19 0807 ??? furosemide (LASIX) tablet 80 mg, 80 mg, Oral, BID DIURETIC, ALEIDA Phan, 80 mg at 05/26/19 0805 ??? glucagon (human recombinant) injection 1 mg, 1 mg, Intramuscular, PRN, Manoj Morrison NP ??? heparin (porcine) injection 1,000 Units, 1,000 Units, Intracatheter, Once per day on Fri, Debi Wetzel RN, 1,000 Units at 05/25/19 193 ??? heparin (porcine) injection 1,000 Units, 1,000 Units, Intracatheter, Once per day on Fri, Debi Wetzel RN, 1,000 Units at 05/25/19 1936 ??? heparin (porcine) injection 2,000 Units, 2,000 Units, Intravenous, During Dialysis, Debi Wetzel RN, 2,000 Units at 05/20/19 1130 ??? heparin (porcine) injection 4,300 Units, 4,300 Units, Intravenous, Once per day on Fri,Florencia Moulton MD, 4,300 Units at 05/25/19 1801 ? ? insulin lispro (HumaLOG) injection 0-6 Units, 0-6 Units, Subcutaneous, AC & HS, 2 Units at 05/16/19 1746 AND POCT glucose, , , AC & HS, Manoj Morrison NP ??? iron sucrose (VENOFER) injection 200 mg, 200 mg, Intravenous, During Dialysis, Carmen Donato MD, 200 mg at 05/25/19 1804 ??? lidocaine (LIDOCARE) 4 % patch 2 patch, 2 patch, Transdermal, Once a day, Manoj Morrison NP, 2 patch at 05/26/19 0807 ??? MINERIN cream cream, , Topical, 2 times per day, Florencia Moulton MD ??? oxyCODONE-acetaminophen (PERCOCET) 5-325 MG 1 tablet, 1 tablet, Oral, Q6H PRN, Misty Hathaway MD, 1 tablet at 05/25/19 1842 ??? polyethylene glycol (MIRALAX) packet 17 g, 17 g, Oral, Daily PRN, Mike Zamora MD, 17 g at 05/26/19 0601 ??? tamsulosin (FLOMAX) 24 hr capsule 0.4 mg, 0.4 mg, Oral, Nightly, Misty Hathaway MD, 0.4 mg at 05/25/192124 PHYSICAL EXAM WEIGHTS 136 lb 1 oz (61.7 kg) ?? General appearance: awake, alert, cooperative, no distress HEENT: Normocephalic, No icterus, No oral lesions, [...] without mass, non-tender, with normal bowel sounds, External Genitalia not examined, groin Extremities: no clubbing, cyanosis or edema, no calf tenderness Musculoskeletal:no swelling of joints.no redness, FROM otherjoints Psychologic: Mood and affect appropriate, no suicidal ideation. Skin: No rash, swelling or erythema identified . Warm and Dry, R chest dialysis cath with tegaderm dressing clean dry and intact. Neurologic/WHITESMITH:Alert & oriented x 2 confused at times, poor historian, Speech normal, Tongue and uvula central Strength is 4/5 in all extremities ?? No clonus Gait not tested ? Please see height, weight, and BP reported elsewhere as part of this encounter ?? LABS CBC: Recent Labs Lab Units 05/22/19 0708 WBC X(10)9/L BLOOD x10E9/L 2.4* HGB GM/DL BLOOD gm/dL 9.2* PLT CT X(10)9/L BLOOD x10E9/L 209 MCV FL BLOOD fl 98.7* BMP: Recent Labs Lab Units 05/22/19 0708 SODIUM MMOL/L BLOOD mmol/L 135* POTASSIUM MMOL/L BLOOD mmol/L 3.8 CHLORIDE mmol/L 96* CO2 mmol/L 26 BUN MG/DL BLOOD mg/dL 42* CREATININE mg/dL 6.41* GLUCOSE MG/DL BLOOD mg/dL 146* CALCIUM MG/DL BLOOD mg/dL 8.4 DATA Vitals: 05/24/19 1729 05/24/19 2000 05/25/19 0730 05/26/19 0617 BP: 101/60 139/71 112/72 Pulse: 83 75 Resp: 16 18 Temp: 98.4 ??F (36.9 ??C) 97.3 ??F (36.3 ??C) TempSrc: Oral Oral SpO2: 99% 96% Weight: 136 lb (61.7 kg) Height: POC Glucose POC Glucose 05/25/19 1645 102 Weights (last 3 days) Date/Time Weight 05/26/19 0617 136 lb (61.7 kg) 05/24/19 0600 130 lb 8 oz (59.2 kg) 05/23/19 0353 127 lb 11.2 oz (57.9 kg) @ANTICOAGSUMMARY@ @FLOWDATE(2706:LAST)@ Intake/Output Summary (Last 24 hours) at 05/26/2019 1054 Last data filed at 05/25/2019 1251 Gross per 24 hour Intake 240 ml Output -- Net 240 ml IMAGING STUDIES & OTHER STUDIES ??2 views right hip 2 views left hip AP pelvis ?? INDICATION: Bilateral hip pain and pelvic pain. ?? FINDINGS: Right hip: No acute fracture, malalignment, or degenerative disease. ?? Left hip: Marked severe osteoarthrosis left hip joint with [id number] contact throughout the central, superior, superolateral portions of the articulation. Subchondral sclerosis and cystic change femoral head and acetabulum. No acute fracture. ?? AP pelvis: Anatomic alignment. No other sites of degenerative disease. No acute pathology. ?? Reading Radiologist: Milana Rodríguez MD on 05/24/2019 at 5:22 PM ASSESSMENT AND PLAN Principal Problem: Toxic metabolic encephalopathy Active Problems: Debility Anemia of chronic renal failure Chronic kidney disease, Stage V Essential hypertension Hyperkalemia Hypervolemia Malignant neoplasm of prostate Moderate malnutrition Other hyperlipidemia Retention of urine Diastolic dysfunction Seroma Abnormality of gait End stage renal failure on dialysis Hyperglycemia Debility Active Problems: Type 2 diabetes mellitus Anemia of chronic renal failure Chronic kidney disease, Stage V Essential hypertension Hyperkalemia Hypervolemia Malignant neoplasm of prostate Moderate malnutrition Other hyperlipidemia Retention of urine Diastolic dysfunction Seroma Abnormality of gait Toxic metabolic encephalopathy Acute renal failure, CKD LE edema ESRD,with volume overload, on dialysis now Renal consulted Echo done 04/29 Still on lasix 80 bid watch BP 05/[address] Donato, dialysis today 05/14 PVR 238-242-303 ml, continue with PVR another day. Weight 130 lb 05/15 bun 45 cr 6.77 05/18 bun 67, cr 7.31, on dialysis 05/19 ok to d/c PVRs 05/26 bun 15 cr 3.48 Diastolic grade 1 heart failure Ef 60% per echo 04/29 Lasix, dialysis 05/14 weight 130 lb 05/16 wt 128 lb 05/20 wt 130 lb 05/23 wt 127 lb 05/24 wt 130 lb L thigh seroma/ L hip pain/ severe OA to L hip Dopplers done 04/29 negative for dvt 05/24 Ordered Hip and Pelvis xrays Hypertension,/ hypotension / bradycardia Continue meds 05/13 bp 103/61 on norvasc, tenormin , lasix 80 bid, lisinopril 5 DC norvasc - parameters added to bp meds Hold lisinopril x 2 days 05/14 Decrease lisinopril to 2.5. bp 108/60 DC atenolol HR 55-64 DC lisimopril 05/15 bp 90/51 05/16 bp 115/60, 102/63, 83/55, 127/83 hr 80-94 05/17 BP 114/64, stable at this time 05/26 BP 120/92, stable Hyperkalemia, related to the chronic kidney disease, on dialysis 05/13 k 3.6 05/15 k 4.4 05/18 K 4.6, stable at this time 05/26 k 4.0 Hypocalcemia 05/15 ca 8.2 05/18 Ca 8.2, stable at this time 05/26 ca 8.5 Gout allopurinol Metabolic acidosis from the renal failure, better with dialysis Anemia, most recent hemoglobin 8.7, , monitor H/H 05/13 h and h 8.8/ 29.1 05/15 h and h 7.9/ .1 Vit b 12 349 Epoetin per renal and IV venofer 05/18 H&H 8.1/.4, stable at this time 05/22 h and h 9.2/ 29.9 05/26 h and h 9.2/.1 Altered sugars aacu, SSI 05/13 poct 121 05/14 poct 119-135 05/15 Sugars [phone] 05/16 Sugars [phone] 05/17 bg 112-173, stable at this time 05/21 poct 109-133 05/24 Sugars 113-138-106 05/25 sugars 163-94 ?? h/oProstate cancer Bladder management / hx of orchiectomy / urine retention in acutre Voiding ok Ditropan and flomax 05/13 had high volume PVR , dc ditropan. 05/16 PVR los volumes 122-159-0 ml last night 05/18 PVRs 127-234, will monitor 05/19 ok to d/c PVRs Dementia/ cognitive impairment aricept neuropsych consult DVT prophylaxis: on Lovenox Minh hose Echo 05/01/19: Mild concentric left ventricular hypertrophy. Impaired diastolic relaxation Grade I. Ejection fraction is visually estimated at 60 %. There is mild enlargement of left atrium. Mild aortic valve regurgitation. ?? Pain management Today's pain score 0 05/13 percocet 6 q 6 prn, tylenol Lidocaine patch and voltaren 05/18 denies pain ?? Bowel management . Titrate bowel medications for constipation/diarrhea. 05/13 had bm Skin care 05/22 bilateral heels boggy and discolored, podus boots ordered and applied. Wound care to see. Full Resuscitation ? Electronically signed by: MANOJ MORRISON NP, 05/26/2019 10:54 AM Cosigned by Misty Hathaway MD at 06/04/2019 8:12 AM GLOVE TAGGER Associated attestation - Misty Hathaway MD - 06/04/2019 9:12 AM EST The patient is being seen for follow-up of all current problems, BP, BS , HR, labs and strength. Follow up on pain, swallowing, bladder and bowel function. Strength improving, able to do therapy ok. I saw, evaluated and examined the patient face to face in conjunction with the CORK COMPOUNDER and agree with the management and disposition of the patient. History also obtained from Nurse and staff about how the patient did overnight and during the day. I performed mario portions of the follow up history, examination, review of labs and radiology and evaluation. I agree with the subjective, physical exam and assessment and plan details as outlined in the note below. Discussed the mario medical decision making- both assessment and plan, rehabilitation goals and treatment plan with patient, CORK COMPOUNDER , nursing staff, farm operator and the members of the team. * Florencia Moulton MD - 05/25/2019 10:35 PM CST Rehabilitation Physician Progress Note Patient Name: Jules Mitchell Age: 73 y.o. Patient's Primary Care Physician: Dr. Kwame Berg LOS: 14 DAYS This was a face to face visit with the patient Seen and examined today for rehab and medical issues related to debility with encephalopathy. CC I worked hard HPI and Interval history: Watching pvrs-dced ditropan Less than 300 cc Tolerating HD Blood sugars are below 150 PVRs remain below 300 cc Ambulating better Family teaching Tolerating dialysis Addressing PVRs BP low unclear if symptomatic Continues improved ambulation Improving mood Family wishes MR for left leg Patient is walking over 180 feet Reviewed work up on admission for left leg pain No xrays done by acute team-ordered xrays xrays demonstrated severe bone on bone arthritis with cysts Updated family and patient ORTHO referral recommended DC planning underway Subjective Review of Systems Denies chest pain, dyspnea or nausea. Pain controlled PHYSICAL EXAM: (Retired) Vitals (last 3 days) Date/Time Temp Pulse Resp BP SpO2 Weight 05/25/19 0730 97.3 ??F (36.3 ??C) 75 18 112/72 96 % -- 05/24/191999 98.4 ??F (36.9 ??C) 83 16 139/71 99 % -- 05/24/19 1729 -- -- -- 101/60 -- -- 05/24/19 0846 -- 89 -- 112/58 97 % -- 05/24/19 0700 97 ??F (36.1 ??C) 77 16 95/55 98 % -- 05/24/19 0600 -- -- -- -- -- 130 lb 8 oz (59.2 kg) 05/23/192030 97.1 ??F (36.2 ??C) 79 16 133/67 99 % -- 05/23/19 0730 98.9 ??F (37.2 ??C) 97 20 (!) 120/92 98 % -- 05/23/19 0353 -- -- -- -- -- 127 lb 11.2 oz (57.9 kg) 05/22/192031 98.3 ??F (36.8 ??C) 82 18 (!) 159/69 97 % -- 05/22/19 0720 98.3 ??F (36.8 ??C) 80 19 127/65 99 % -- Blood sugars: POC Glucose POC Glucose 05/25/19 1645 102 05/25/19 0650 94 Weights (last 3 days) Date/Time Weight 05/24/19 0600 130 lb 8 oz (59.2 kg) 05/23/19 0353 127 lb 11.2 oz (57.9 kg) GENERAL: Alert, NAD smiling HEENT: EOMI MMM NECK: no JVD LUNGS: Clear to auscultation CV: RR ABDOMEN: Soft NT to palpation EXTREMITIES: No edema SKIN: No new issues TONE: normal MUSCULOSKELETAL: UE without weakness RLE antigravity LLE with hip flexion, knee extension, ankle dorsiflexion-functional ROM and strength NEURO: No tremors PSYCH: SMILING Lab Data Reviewed current lab results available to me today. Lab Results Component Value Date WBC 2.4 (L) 05/22/2019 HGB 9.2 (L) 05/22/2019 HCT 29.9 (L) 05/22/2019 MCV 98.7 (H) 05/22/2019 PLT 209 05/22/2019 Lab Results Component Value Date GLUCOSE 146 (H) 05/22/2019 CALCIUM 8.4 05/22/2019 NA 135 (L) 05/22/2019 K 3.8 05/22/2019 CO2 26 05/22/2019 CL 96 (L) 05/22/2019 BUN 42 (H) 05/22/2019 CREATININE 6.41 (H) 05/22/2019 ANIONGAP 13 05/22/2019 Anemia leukopenia ESRD Imaging Reviewed current imaging results available to me today. No results found. Allergies No Known Allergies Medication List Scheduled/Continuous Medications Scheduled Medication Dose/Rate, Route, Frequency Last Action allopurinol (ZYLOPRIM) tablet 100 mg 100 mg, PO, Once a day Given: 05/25 906 atorvastatin (LIPITOR) tablet 20 mg 20 mg, PO, Once a day Given: 05/25 906 bisacodyl (DULCOLAX) suppository 10 mg 10 mg, RE, Once Ordered Diclofenac Sodium (VOLTAREN) 1 % gel 2 g 2 g, TOP, BID Given: 05/25 2125 docusate sodium (COLACE) capsule 100 mg 100 mg, PO, Once a day Given: 05/25 907 donepezil (ARICEPT) tablet 10 mg 10 mg, PO, Nightly Given: 05/25 2124 epoetin ashly-epbx (RETACRIT) 4,000 Units 4,000 Units, SC, T-Th-Sat w/Dialysis Given: 05/25 175 folic acid (FOLVITE) tablet 1 mg 1 mg, PO, Once a day Given: 05/25 908 furosemide (LASIX) tablet 80 mg 80 mg, PO, BID DIURETIC Given: 05/25 905 heparin (porcine) injection 1,000 Units 1,000 Units, IK, 3x/week in HD Given: 05/25 1935 heparin (porcine) injection 1,000 Units 1,000 Units, IK, 3x/week in HD Given: 05/25 1935 heparin (porcine) injection 2,000 Units 2,000 Units, IV, During Dialysis Given: 05/20 113 heparin (porcine) injection 4,300 Units 4,300 Units, IV, 3x/week in HD Given: 05/25 180 insulin lispro (HumaLOG) injection 0-6 Units 2 Units, SC, AC & HS Given - Witness Not Required:05/16 1746 iron sucrose (VENOFER) injection 200 mg 200 mg, IV, During Dialysis Given: 05/25 180 lidocaine (LIDOCARE) 4 % patch 2 patch 2 patch, TD, Once a day Medication Applied: 05/25 907 MINERIN cream cream No Dose/Rate, TOP, BID Given: 05/25 2125 tamsulosin (FLOMAX) 24 hr capsule 0.4 mg 0.4 mg, PO, Nightly Given: 05/25 2124 Current Functional Status reviewed today: Gait Analysis: 1 x 150', 1 x 200' with RW and distant supervision over even surfaces. Pt demonstrates increased trunk flexion, decreased joao, decreased foot clearance, and decreased stance time on L LE. Pt requires seated rest break for increased time upon completion of each set. Pt demonstrates no LOB throughout, however requires greatly increased time to complete. Stair Analysis: Pt indicates increased fatigue (at completion of session). With family present, therapist simulated pt mobility up/down the steps with discussion of safe guarding technique and sequencing. Pt and nephew indicate understanding. COMPREHENSION: Supervision with basic daily needs - He benefited from repetition and slowed speech rate and understood statements regarding basic, routine issues EXPRESSION: Minimal assistance for basic daily naming, word retrieval deficits, fair speech intelligibility with speech intelligibility being impaired due to fast rate and endentulous SOCIAL INTERACTION: Supervision - additional prompts for increased engagement, participation, eye contact PROBLEM SOLVING: Minimal assistance - Patient requires prompting or redirection to problem solve appropriately some of the time MEMORY: Minimal assistance - Patient presents with cognitive deficits in areas of recall and orientation requiring min cues. ?? PROGRESS: Patient with improved basic attention and and simple problem solving improving from moderate assistance to min assistance. Section GG CARE Scores Physical Therapy? Car Transfer Car Transfer - CARE Score: 4 (05/25/19 1507 : Kylie Sanchez, PT) Walk 10 Feet Walk 10 Feet - CARE Score: 4 (05/25/19 1507 : Kylie Sanchez PT) Walk 50 Feet with Two Turns Walk 50 Feet with Two Turns - CARE Score: 4 (05/25/19 1507 : Kylie Sanchez PT) Walk 150 Feet Walk 150 Feet - CARE Score: 4 (05/25/19 1507 : Kylie Sanchez PT) Walking 10 Feet on Uneven Surfaces Walking 10 Feet on Uneven Surfaces - CARE Score: 4 (05/25/19 1507 : Kylie Sanchez, PT) 1 Step (Curb) 1 Step (Curb) - CARE Score: 4 (05/25/19 1507 : Kylie Sanchez PT) 4 Steps 4 Steps - CARE Score: 4 (05/25/19 1507 : Kylie Sanchez PT) 12 Steps 12 Steps - CARE Score: 4 (05/25/19 1507 : Kylie Sanchez PT) Picking Up Object Picking Up Object - CARE Score: 4 (05/25/19 1507 : Kylie Sanchez PT) Wheel 50 Feet with Two Turns Wheel 50 Feet with Two Turns - CARE Score: 3 (05/25/19 1507 : Kylie Sanchez PT) Wheel 150 Feet Wheel 150 Feet - CARE Score: 2 (05/25/19 1507 : Kylie Sanchez PT) BARRIERS: Cognitive impairments anemia arthritis severe hips Assessment and Plan 1.Etiologic Diagnosis: Encephalopathy in setting of new renal failure-may have dementia-on aricept.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 Improved attention and expression 2. Gait disorder multifactorial with noted severe arthritis Endurance training progressing well. Patient is ambulating with RW 3. ESRD: HD per dr donato 4. Urinary retention, resolved. Off ditropan, all PVR's below 300 cc. Continuing Flomax. 5. Osteoarthritis: Voltaren gel, prn oral analgesics. 6. Dyslipidemia: continuing statin. 7. History of gout: Allopurinol. No new joint complaints. 8. Left hip arathritis, severe-follow up with ORTHO Dr. Bishop Co-Morbidities that are continuing to impact the rehab process: Problem List: 2019-04: Hyperglycemia 2019-04: Retention of urine 2019-04: Diastolic dysfunction 2019-04: Seroma 2019-04: Abnormality of gait 2019-04: Toxic metabolic encephalopathy 2019-04: End stage renal failure on dialysis 2019-04: Debility 2019-04: Moderate malnutrition 2019-04: Anemia of chronic renal failure 2019-04: Chronic kidney disease, Stage V 2019-04: Essential hypertension 2019-04: Hyperkalemia 2019-04: Hypervolemia 2019-04: Malignant neoplasm of prostate 2019-04: Other hyperlipidemia 2019-04: Metabolic acidosis 2019-04: Latent autoimmune diabetes mellitus in adult Continue therapies. Continue inpatient comprehensive interdisciplinary rehabilitation to address strengthening, mobility skills, self care, cognitive functioning, speech, communication and swallowing needs. The patient continues to require the interdisciplinary team approach and 24 hour monitoring. ADDITIONAL INFORMATION: left leg previous injury, note OA finding EDUCATION/PT TEACHING: therapy goals EQUIPMENT: WW DESTINATION: home CANDI: 05/28/2019 FOLLOW UP PLANS: FLORENCIA Barlow Dr., MD 05/25/19 10:37 PM * Carmen Donato MD - 05/25/2019 6:25 PM CST Nephrology Progress Note Jules Mitchell [id number] Subjective: Patient seen and examined in dialysis, denies fever, chills, chest pain, sob, cough, changes in appetite, N/V, diarrhea, abdominal pain, dysuria, hematuria Objective: Vital signs: Vitals: 05/24/19 0846 05/24/19 1729 05/24/19 2000 05/25/19 0730 BP: 112/58 101/60 139/71 112/72 Pulse: 89 83 75 Resp: 16 18 Temp: 98.4 ??F (36.9 ??C) 97.3 ??F (36.3 ??C) TempSrc: Oral Oral SpO2: 97% 99% 96% Weight: Height: Weight: Wt Readings from Last 3 Encounters: 05/24/19 130 lb 8 oz (59.2 kg) Medications: Scheduled/Continuous Medications Scheduled Medication Dose/Rate, Route, Frequency Last Action allopurinol (ZYLOPRIM) tablet 100 mg 100 mg, PO, Once a day Given: 05/25 906 atorvastatin (LIPITOR) tablet 20 mg 20 mg, PO, Once a day Given: 05/25 09 bisacodyl (DULCOLAX) suppository 10 mg 10 mg, RE, Once Ordered Diclofenac Sodium (VOLTAREN) 1 % gel 2 g 2 g, TOP, BID Given: 05/25 909 docusate sodium (COLACE) capsule 100 mg 100 mg, PO, Once a day Given: 05/25 09 donepezil (ARICEPT) tablet 10 mg 10 mg, PO, Nightly Given: 05/24 2011 epoetin ashly-epbx (RETACRIT) 4,000 Units 4,000 Units, SC, T-Th-Sat w/Dialysis Given: 05/22 121 folic acid (FOLVITE) tablet 1 mg 1 mg, PO, Once a day Given: 05/25 908 furosemide (LASIX) tablet 80 mg 80 mg, PO, BID DIURETIC Given: 05/25 905 heparin (porcine) injection 1,000 Units 1,000 Units, IK, 3x/week in HD Given: 05/22 2155 heparin (porcine) injection 1,000 Units 1,000 Units, IK, 3x/week in HD Given: 05/22 2155 heparin (porcine) injection 2,000 Units 2,000 Units, IV, During Dialysis Given: 05/20 113 heparin (porcine) injection 4,300 Units 4,300 Units, IV, 3x/week in HD Given: 05/22 2156 insulin lispro (HumaLOG) injection 0-6 Units 2 Units, SC, AC & HS Given - Witness Not Required:05/16 1745 iron sucrose (VENOFER) injection 200 mg 200 mg, IV, During Dialysis Given: 05/20 113 lidocaine (LIDOCARE) 4 % patch 2 patch 2 patch, TD, Once a day Medication Applied: 05/25 907 MINERIN cream cream No Dose/Rate, TOP, BID Given: 05/25 909 tamsulosin (FLOMAX) 24 hr capsule 0.4 mg 0.4 mg, PO, Nightly Given: 05/24 2011 Current Facility-Administered Medications: ??? acetaminophen (TYLENOL) tablet 325 mg, 325 mg, PO/Per Tube, Q6H PRN, Misty Hathaway MD, 325 mgat 05/11/192320 ??? allopurinol (ZYLOPRIM) tablet 100 mg, 100 mg, Oral, Once a day, Misty Hathaway MD, 100 mg at 05/25/19906 ??? atorvastatin (LIPITOR) tablet 20 mg, 20 mg, Oral, Once a day, Mitsy Hathaway MD, 20 mg at 05/25/19906 ??? bisacodyl (DULCOLAX) suppository 10 mg, 10 mg, Rectal, Once, Manoj Morrison, [employer] ??? dextrose (GLUTOSE) 40 % oral gel 15 g, 15 g, Oral, PRN, Manoj Morrison, [employer] ??? dextrose 5 % and sodium chloride 0.45 % infusion, 50 mL/hr, Intravenous, PRN, Manoj Morrison, [employer] ??? dextrose 50 % IV solution 25 g, 25 g, Intravenous, PRN, Manoj Morrison, [employer] ??? Diclofenac Sodium (VOLTAREN) 1 % gel 2 g, 2 g, Topical, 2 times per day, Manoj Morrison NP, 2 g at 05/25/19 0910 ??? docusate sodium (COLACE) capsule 100 mg, 100 mg, Oral, Once a day, Misty Hathaway MD, 100 mg at 05/25/19 0908 ??? donepezil (ARICEPT) tablet 10 mg, 10 mg, Oral, Nightly, Misty Hathaway MD, 10 mg at 05/24/192011 ??? epoetin ashly-epbx (RETACRIT) 4,000 Units, 4,000 Units, Subcutaneous, w/Dialysis, Froy Donato MD, 4,000 Units at 05/22/19 1212 ??? folic acid (FOLVITE) tablet 1 mg, 1 mg, Oral, Once a day, Misty Hathaway MD, 1 mg at 05/25/19 0909 ??? furosemide (LASIX) tablet 80 mg, 80 mg, Oral, BID DIURETIC, ALEIDA Phan, 80 mg at 05/25/19 0906 ??? glucagon (human recombinant) injection 1 mg, 1 mg, Intramuscular, PRN, Manoj Morrison, NEENA ??? heparin (porcine) injection 1,000 Units, 1,000 Units, Intracatheter, Once per day on Fri Sat, Debi Wetzel RN, 1,000 Units at 05/22/192155 ??? heparin (porcine) injection 1,000 Units, 1,000 Units, Intracatheter, Once per day on Fri Sat, Debi Wetzel RN, 1,000 Units at 05/22/192155 ??? heparin (porcine) injection 2,000 Units, 2,000 Units, Intravenous, During Dialysis, Debi Wetzel RN, 2,000 Units at 05/20/19 1130 ??? heparin (porcine) injection 4,300 Units, 4,300 Units, Intravenous, Once per day on Fri,Florencia Moulton MD, 4,300 Units at 05/22/19 2157 ? ? insulin lispro (HumaLOG) injection 0-6 Units, 0-6 Units, Subcutaneous, AC & HS, 2 Units at 05/16/19 1746 AND POCT glucose, , , AC & HS, Manoj Morrison, NEENA ??? iron sucrose (VENOFER) injection 200 mg, 200 mg, Intravenous, During Dialysis, Carmen Donato MD, 200 mg at 05/20/19 1132 ??? lidocaine (LIDOCARE) 4 % patch 2 patch, 2 patch, Transdermal, Once a day, Manoj Morrison NP, 2 patch at 05/25/19 0908 ??? MINERIN cream cream, , Topical, 2 times per day, Florencia Moulton MD ??? oxyCODONE-acetaminophen (PERCOCET) 5-325 MG 1 tablet, 1 tablet, Oral, Q6H PRN, Misty Hathaway MD, 1 tablet at 05/22/19 0739 ??? polyethylene glycol (MIRALAX) packet 17 g, 17 g, Oral, Daily PRN, Mike Zamora MD, 17 g at 05/19/19 0852 ??? tamsulosin (FLOMAX) 24 hr capsule 0.4 mg, 0.4 mg, Oral, Nightly, Misty Hathaway MD, 0.4 mg at 05/24/192011 ??? acetaminophen ??? glucose ??? dextrose 5 % and sodium chloride 0.45 % ??? dextrose ??? glucagon ??? oxyCODONE-acetaminophen ??? polyethylene glycol Physical Exam: General: awake and alert. In NAD Lungs: CTA B/L Heart: RRR, S1 and S2 without rubs Abdomen: Soft, NT/ND, + BS Ext: Without edema Labs: Recent Labs Lab Units 05/22/19 0708 05/20/19 1016 SODIUM MMOL/L BLOOD mmol/L 135* 137 POTASSIUM MMOL/L BLOOD mmol/L 3.8 5.6* CHLORIDE mmol/L 96* 99 CO2 mmol/L 26 23 BUN MG/DL BLOOD mg/dL 42* 55* CREATININE mg/dL 6.41* 7.67* GLUCOSE MG/DL BLOOD mg/dL 146* 105 CALCIUM MG/DL BLOOD mg/dL 8.4 8.6 ANION GAP BLOOD mmol/L 13 15 Recent Labs Lab Units 05/22/19 0708 05/20/19 1016 SODIUM MMOL/L BLOOD mmol/L 135* 137 POTASSIUM MMOL/L BLOOD mmol/L 3.8 5.6* CHLORIDE mmol/L 96* 99 CO2 mmol/L 26 23 BUN MG/DL BLOOD mg/dL 42* 55* CREATININE mg/dL 6.41* 7.67* GLUCOSE MG/DL BLOOD mg/dL 146* 105 CALCIUM MG/DL BLOOD mg/dL 8.4 8.6 Recent Labs Lab Units 05/22/19 0708 05/20/19 1016 SODIUM MMOL/L BLOOD mmol/L 135* 137 POTASSIUM MMOL/L BLOOD mmol/L 3.8 5.6* CHLORIDE mmol/L 96* 99 CO2 mmol/L 26 23 BUN MG/DL BLOOD mg/dL 42* 55* CREATININE mg/dL 6.41* 7.67* GLUCOSE MG/DL BLOOD mg/dL 146* 105 CALCIUM MG/DL BLOOD mg/dL 8.4 8.6 Recent Labs Lab Units 05/22/19 0708 WBC X(10)9/L BLOOD x10E9/L 2.4* HGB GM/DL BLOOD gm/dL 9.2* HCT % BLOOD % 29.9* PLT CT X(10)9/L BLOOD x10E9/L 209 Assessment/ Plan: Principal Problem: Toxic metabolic encephalopathy Active Problems: Debility Anemia of chronic renal failure Chronic kidney disease, Stage V Essential hypertension Hyperkalemia Hypervolemia Malignant neoplasm of prostate Moderate malnutrition Other hyperlipidemia Retention of urine Diastolic dysfunction Seroma Abnormality of gait End stage renal failure on dialysis Hyperglycemia LOS: 14 days Assessment/Plan ESRD: on dialysis now. HTN: reasonably controlled with dialysis Acute volume overload related to ESRD: compensated on dialysis and oral Lasix Anemia related to ESRD, iron deficiency: on iron replacment DM Left thigh seroma Hyperlipidemia:on statin Hyperkalemia from ESRD: on dialysis and this is better Generalized weakness from uremia: on rehab Metabolic acidosis: stable on dialysis Constipation: on bowel regimen Weakness: on rehab CARMEN DONATO MD * Manoj Morrison NP - 05/25/2019 9:35 AM CST Images from the original note were not included. HOSPITALIST PROGRESS NOTE Patient Name: Jules Mitchell : 1945 Medical Record: [id number] Admit date 05/11/19 DATE OF SERVICE 05/25/2019 ATTENDING PHYSICIAN Florencia Moulton MD ? CHIEF COMPLAINT Principal Problem: Debility Active Problems: Type 2 diabetes mellitus Anemia of chronic renal failure Chronic kidney disease, Stage V Essential hypertension Hyperkalemia Hypervolemia Malignant neoplasm of prostate Moderate malnutrition Other hyperlipidemia Retention of urine Diastolic dysfunction Seroma Abnormality of gait Toxic metabolic encephalopathy ? HISTORY OF PRESENT ILLNESS ?? The patient is a 73 y.o. y/o male with history of f prostate cancer, DM, and HTN presents to the EDcomplaining of intermittent left leg pain since last week. he has left sided buttock pain that radiates down posterior aspect of leg to knee. Hx coagulopathy, Hx venous thromboembolism. Pt was in acute renal failure with volume overload. Seen by renal , initiated dialysis , ?? currently here for therapy Todays chief Complains gen weakness Left leg pain ?? Confused about details of history ?? Duration of problems- Intensity Type Associated symptoms Aggrevating/relieving factors ? History also obtained from review of patients previous acute hospitalization chart, current rehabilitation chart , discussion with family members in the room and discussion with nursing staff taking care of the patient. ? SUBJECTIVE 05/13 initial progress note The patient is being seen for follow-up of all current problems, BP, BS , HR, labs and strength. Follow up on pain, swallowing, bladder and bowel function. Patient denies any chest pain, palpitations, shortness of breath, cough, abdominal pain, nausea, vomiting, diarrhea or constipation. No overnight events. Denies pain. Pain controlled on meds prescribed. Bowel movement 05/10. Lactulose ordered. Refused last night suppository. Had bm today 05/13 bp low bp 103/61 DC norvasc - hold lisinopril x 2 days Has 800 ml urine output with current urine agents- DC ditropan per PMR. Bladder scan [phone] ml had to be straight cath 800 ml out PVR 600 ml Due for dialysis today followed by Dr Donato Case discussed with Dr. Moulton, physiatry. Minh burns added Liver enzymes OK Seen by Neuropsych Appetite good and states slept well. Patient participating with therapy and is doing well. No further needs expressed at this time. 05/14 The patient is being seen for follow-up of all current problems, BP, BS , HR, labs and strength. Follow up on pain, swallowing, bladder and bowel function. Patient denies any chest pain, palpitations, shortness of breath, cough, abdominal pain, nausea, vomiting, diarrhea or constipation. No overnight events. 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 Pain controlled on meds prescribed. Bowel movement 05/13 x 2. Pt seen this am sitting up in chair working with [employer]. Discussed pt with Carlos. Walking 100 ft with therapy, eager for exercises today. Requesting topical agent for L knee pain- voltaren gel ordered. Lidocaine patch for L thigh pain- edema improved. 1500 ml off with dialysis yesterday- tolerated. PVR 238-242-303 ml, continue with PVR another day. Weight 130 lb Sugars stable 119-135 Afebrile. HR 60s bp 119/60, 108/62. sats 100 % RA Atenolol held today. Decrease lisinopril to 2.5 Appetite good and states slept well. Patient participating with therapy and is doing well. No further needs expressed at this time. 05/15 The patient is being seen for follow-up of all current problems, BP, BS , HR, labs and strength. Follow up on pain, swallowing, bladder and bowel function. Patient denies any chest pain, palpitations, shortness of breath, cough, abdominal pain, nausea, vomiting, diarrhea or constipation. No overnight events. Denies pain. Pain controlled on meds prescribed. Pain better with lidocaine and voltaren gel. Bowel movement 05/13 bp soft this am- hold atenolol x 2 days Hold lasix and lisonopril DC atenolol- feels dizzy with therapy Notified Bandar Donato. Dc lisinopril, wants to continue lasix BID pvr 278 ml, 330-224. Has x 1 straigh cath last night with 300 ml out urine. No weight recorded this am Sugars [phone]- Dialysis today, BP still soft 90/51, HR 57-64. Holding atenolol x 2 days and held lasix and lisinopril this am. PVR 278 ml 330-224, was cath x 1 today with 300 ml out Appetite good and states slept well. Patient participating with therapy and is doing well. No further needs expressed at this time. BP low still down to 80s On dialysis Called and D/W Dr Donato - continue lasix Since pt having good urine out put ?? DC Lisinopril AND CHIVO I 05/16 The patient is being seen for follow-up of all current problems, BP, BS , HR, labs and strength. Follow up on pain, swallowing, bladder and bowel function. Patient denies any chest pain, palpitations, shortness of breath, cough, abdominal pain, nausea, vomiting, diarrhea or constipation. No overnight events. Denies pain. Pain controlled on meds prescribed. Bowel movement today. Pain better with patch. Has not taken percocet since 05/13 Afebrile. HR 90s-80 bp 102/63 sats 98% RA. Still off most BP meds-monitor. 2000 ml off with dialysis. PVR 122-159-0 ml. Weigth stable 128 lb. Pt seen sitting up in chair watching tv, L thigh edema down. Sugars [phone] Labs done 05/15. Appetite good and states slept well. Patient participating with therapy and is doing well. No further needs expressed at this time. 05/17 Patient seen and evaluated on daily rounds. No overnight events reported. Patient has been participating with therapy and is doing well. Pt seen today sitting up in wheelchair. Pt denies pain at thistime, well controlled with current medications. Slept well and appetite good. Last BM yesterday, noissues. Voiding well. Continue dialysis. Patient denies any chest pain, palpitations, shortness of breath, cough, abdominal pain, nausea and vomiting, or constipation. BP 114/64 without BP meds, HR 64. BG stable. No other needs or concerns expressed at this time. 05/18 Patient seen and evaluated on daily rounds. No overnight events reported. Patient has been participating with therapy and is doing well. Pt seen today sitting up in wheelchair. Pt denies pain at thistime, not requiring pain medications. Slept okay and appetite good. Last BM today, no issues. Voiding well. PVRs 127-234 ml. Patient denies any chest pain, palpitations, shortness of breath, cough, abdominal pain, nausea and vomiting, or constipation. BP 105/57, HR 67. BG stable. Anticipate dialysis with labs today. No other needs or concerns expressed at this time. 05/19 Patient seen and evaluated on daily rounds. No overnight events reported. Patient has been participating with therapy and is doing well. Pt seen today sitting up in wheelchair. Pt denies pain at thistime, well controlled with current medications. Slept off and on and appetite good. Last BM today, no issues. Voiding well. PVR 190-195. Patient denies any chest pain, palpitations, shortness of breath, cough, abdominal pain, nausea and vomiting, or constipation. BP 90/49, HR 83. BG stable. Labs obtained yesterday, reviewed. No other needs or concerns expressed at this time. 05/20 Patient seen and evaluated on daily rounds. No overnight events reported. Patient has been participating with therapy and is doing well. Pt seen today sitting up in wheelchair. Pt reports he was sorewith therapy, but denies pain at this time, well controlled with current medications. Slept well and appetite good, but his uneaten breakfast tray was taken while he was in therapy. Last BM yesterday, no issues. Voiding well. Dialysis today. Patient denies any chest pain, palpitations, shortness ofbreath, cough, abdominal pain, nausea and vomiting, or constipation. BP 109/64, HR 83. Labs to be obtained today with dialysis. BG stable. No other needs or concerns expressed at this time. 05/21 Patient seen and evaluated on daily rounds. No overnight events reported. Patient has been participating with therapy and is doing well. Pt seen today sitting up in wheelchair. Pt denies pain at thistime, well controlled with current medications. Slept well and appetite good. Last BM yesterday, noissues. Voiding well. Patient denies any chest pain, palpitations, shortness of breath, cough, abdominal pain, nausea and vomiting, or constipation. BP 110/64, HR 79. BG stable. No other needs or concerns expressed at this time. 05/22 Patient seen and evaluated on daily rounds. No overnight events reported. Patient has been participating with therapy and is doing well. Pt seen today sitting up in wheelchair. Pt reports he had painto left heel level 10/10 this morning but denies pain at this time, well controlled with current medications. Mild discoloration and bogginess to bilateral heels. Podus boots ordered and applied. Wound care to see. Pt's family member called and reports Dr Donato requested an MRI of the hip earlier this week. Pt denies hip pain at this time. Will follow up with Dr Donato on Friday concerning this. Slept well and appetite good. Last BM 2 days ago, no issues. Voiding well, dialysis today. Patient denie s any chest pain, palpitations, shortness of breath, cough, abdominal pain, nausea and vomiting, orconstipation. BP 127/65, HR 80. BG stable. No other needs or concerns expressed at this time. 05/23 Patient seen and evaluated on daily rounds. No overnight events reported. Patient has been participating with therapy and is doing well. Pt seen today sitting up in wheelchair. Pt denies pain at thistime, well controlled with current medications. Podus boots in place. Slept well and appetite good.Last BM yesterday, no issues. Voiding well. Dialysis. Patient denies any chest pain, palpitations, shortness of breath, cough, abdominal pain, nausea and vomiting, or constipation. BP 120/92, HR 97. BG stable. No other needs or concerns expressed at this time. 05/24 The patient is being seen for follow-up of all current problems, BP, BS , HR, labs and strength. Follow up on pain, swallowing, bladder and bowel function. Patient denies any chest pain, palpitations, shortness of breath, cough, abdominal pain, nausea, vomiting, diarrhea or constipation. No overnight events. + L hip pain. Pain controlled on meds prescribed. Bowel movement 05/23. Sugars 113-138-[address] Moulton, physiatry. Labs due tomorrow with dialysis. Afebrile. HR 77-90 sats 97% RA bp 112/58 Ordered Hip and Pelvis xrays Appetite good and states slept well. Patient participating with therapy and is doing well. No further needs expressed at this time. 05/25 The patient is being seen for follow-up of all current problems, BP, BS , HR, labs and strength. Follow up on pain, swallowing, bladder and bowel function. Patient denies any chest pain, palpitations, shortness of breath, cough, abdominal pain, nausea, vomiting, diarrhea or constipation. No overnight events. Denies pain. Pain controlled on meds prescribed. Bowel movement 05/23 sugars 163-94 Hip and pelvis xrays from 05/24 noted Case discussed with Dr. Moulton, physiatry. 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 Notified SIMI winn that pt will need ortho follow up for severe L hip OA. Suggested Dr Bishop for follow up after DC. Appetite good and states slept well. Patient participating with therapy and is doing well. No further needs expressed at this time. REVIEW OF SYSTEMS General: no weight loss, [...] the other 14 organ systems are negative CURRENT MEDICATIONS Current Facility-Administered Medications: ??? acetaminophen (TYLENOL) tablet 325 mg, 325 mg, PO/Per Tube, Q6H PRN, Misty Hathaway MD, 325 mgat 05/11/191 ??? allopurinol (ZYLOPRIM) tablet 100 mg, 100 mg, Oral, Once a day, Misty Hathaway MD, 100 mg at 05/25/19 0907 ??? atorvastatin (LIPITOR) tablet 20 mg, 20 mg, Oral, Once a day, Misty Hathaway MD, 20 mg at 05/25/19 09 ??? bisacodyl (DULCOLAX) suppository 10 mg, 10 mg, Rectal, Once, Manoj Morrison, CORK COMPOUNDER ??? dextrose (GLUTOSE) 40 % oral gel 15 g, 15 g, Oral, PRN, Manoj Morrison, CORK COMPOUNDER ??? dextrose 5 % and sodium chloride 0.45 % infusion, 50 mL/hr, Intravenous, PRN, Manoj Morrison, CORK COMPOUNDER ??? dextrose 50 % IV solution 25 g, 25 g, Intravenous, PRN, Manoj Morrison, CORK COMPOUNDER ??? Diclofenac Sodium (VOLTAREN) 1 % gel 2 g, 2 g, Topical, 2 times per day, Manoj Morrison NP, 2 g at 05/25/19 0910 ??? docusate sodium (COLACE) capsule 100 mg, 100 mg, Oral, Once a day, Misty Hathaway MD, 100 mg at 05/25/19 0908 ??? donepezil (ARICEPT) tablet 10 mg, 10 mg, Oral, Nightly, Misty Hathaway MD, 10 mg at 05/24/192011 ??? epoetin ashly-epbx (RETACRIT) 4,000 Units, 4,000 Units, Subcutaneous, w/Dialysis, Froy Donato MD, 4,000 Units at 05/22/19 1212 ??? folic acid (FOLVITE) tablet 1 mg, 1 mg, Oral, Once a day, Misty Hathaway MD, 1 mg at 05/25/19 0909 ??? furosemide (LASIX) tablet 80 mg, 80 mg, Oral, BID DIURETIC, ALEIDA Phan, 80 mg at 05/25/19 0906 ??? glucagon (human recombinant) injection 1 mg, 1 mg, Intramuscular, PRN, Manoj Morrison, CORK COMPOUNDER ??? heparin (porcine) injection 1,000 Units, 1,000 Units, Intracatheter, Once per day on Fri, Debi Wetzel RN, 1,000 Units at 05/22/192155 ??? heparin (porcine) injection 1,000 Units, 1,000 Units, Intracatheter, Once per day on Fri Sat, Debi Wetzel RN, 1,000 Units at 01/25/20 2156 ??? heparin (porcine) injection 2,000 Units, 2,000 Units, Intravenous, During Dialysis, Debi Wetzel RN, 2,000 Units at 05/20/19 1130 ??? heparin (porcine) injection 4,300 Units, 4,300 Units, Intravenous, Once per day on Fri,Florencia Moulton MD, 4,300 Units at 05/22/19 2157 ? ? insulin lispro (HumaLOG) injection 0-6 Units, 0-6 Units, Subcutaneous, AC & HS, 2 Units at 05/16/19 1746 AND POCT glucose, , , AC & HS, Manoj Morrison NP ??? iron sucrose (VENOFER) injection 200 mg, 200 mg, Intravenous, During Dialysis, Carmen Donato MD, 200 mg at 05/20/19 1132 ??? lidocaine (LIDOCARE) 4 % patch 2 patch, 2 patch, Transdermal, Once a day, Manoj Morrison NP, 2 patch at 05/25/19 0908 ??? MINERIN cream cream, , Topical, 2 times per day, Florencia Moulton MD ??? oxyCODONE-acetaminophen (PERCOCET) 5-325 MG 1 tablet, 1 tablet, Oral, Q6H PRN, Misty Hathaway MD, 1 tablet at 05/22/19 0739 ??? polyethylene glycol (MIRALAX) packet 17 g, 17 g, Oral, Daily PRN, Mike Zamora MD, 17 g at 05/19/19 0852 ??? tamsulosin (FLOMAX) 24 hr capsule 0.4 mg, 0.4 mg, Oral, Nightly, Misty Hathaway MD, 0.4 mg at 05/24/192011 PHYSICAL EXAM WEIGHTS 136 lb 1 oz (61.7 kg) ?? General appearance: awake, alert, cooperative, no distress HEENT: Normocephalic, No icterus, No oral lesions, [...] without mass, non-tender, with normal bowel sounds, External Genitalia not examined, groin Extremities: no clubbing, cyanosis or edema, no calf tenderness Musculoskeletal:no swelling of joints.no redness, FROM otherjoints Psychologic: Mood and affect appropriate, no suicidal ideation. Skin: No rash, swelling or erythema identified . Warm and Dry, R chest dialysis cath with tegaderm dressing clean dry and intact. Neurologic/WHITESMITH:Alert & oriented x 2 confused at times, poor historian, Speech normal, Tongue and uvula central Strength is 4/5 in all extremities ?? No clonus Gait not tested ? Please see height, weight, and BP reported elsewhere as part of this encounter ?? LABS CBC: Recent Labs Lab Units 05/22/19 0708 WBC X(10)9/L BLOOD x10E9/L 2.4* HGB GM/DL BLOOD gm/dL 9.2* PLT CT X(10)9/L BLOOD x10E9/L 209 MCV FL BLOOD fl 98.7* BMP: Recent Labs Lab Units 05/22/19 0708 SODIUM MMOL/L BLOOD mmol/L 135* POTASSIUM MMOL/L BLOOD mmol/L 3.8 CHLORIDE mmol/L 96* CO2 mmol/L 26 BUN MG/DL BLOOD mg/dL 42* CREATININE mg/dL 6.41* GLUCOSE MG/DL BLOOD mg/dL 146* CALCIUM MG/DL BLOOD mg/dL 8.4 DATA Vitals: 05/24/19 0846 05/24/19 1729 05/24/19 2000 05/25/19 0730 BP: 112/58 101/60 139/71 112/72 Pulse: 89 83 75 Resp: 16 18 Temp: 98.4 ??F (36.9 ??C) 97.3 ??F (36.3 ??C) TempSrc: Oral Oral SpO2: 97% 99% 96% Weight: Height: POC Glucose POC Glucose 05/25/19 0650 94 05/24/19 2100 163 05/24/19 1718 163 05/24/19 1221 106 Weights (last 3 days) Date/Time Weight 05/24/19 0600 130 lb 8 oz (59.2 kg) 05/23/19 0353 127 lb 11.2 oz (57.9 kg) @ANTICOAGSUMMAANTONIETTA@ @FLOWDATE(2706:LAST)@ Intake/Output Summary (Last 24 hours) at 05/25/2019 0935 Last data filed at 05/25/2019 0730 Gross per 24 hour Intake 480 ml Output 75 ml Net 405 ml IMAGING STUDIES & OTHER STUDIES ??2 views right hip 2 views left hip AP pelvis ?? INDICATION: Bilateral hip pain and pelvic pain. ?? FINDINGS: Right hip: No acute fracture, malalignment, or degenerative disease. ?? Left hip: Marked severe osteoarthrosis left hip joint with [id number] contact throughout the central, superior, superolateral portions of the articulation. Subchondral sclerosis and cystic change femoral head and acetabulum. No acute fracture. ?? AP pelvis: Anatomic alignment. No other sites of degenerative disease. No acute pathology. ?? Reading Radiologist: Milana Rodríguez MD on 05/24/2019 at 5:22 PM ASSESSMENT AND PLAN Principal Problem: Toxic metabolic encephalopathy Active Problems: Debility Anemia of chronic renal failure Chronic kidney disease, Stage V Essential hypertension Hyperkalemia Hypervolemia Malignant neoplasm of prostate Moderate malnutrition Other hyperlipidemia Retention of urine Diastolic dysfunction Seroma Abnormality of gait End stage renal failure on dialysis Hyperglycemia Debility Active Problems: Type 2 diabetes mellitus Anemia of chronic renal failure Chronic kidney disease, Stage V Essential hypertension Hyperkalemia Hypervolemia Malignant neoplasm of prostate Moderate malnutrition Other hyperlipidemia Retention of urine Diastolic dysfunction Seroma Abnormality of gait Toxic metabolic encephalopathy Acute renal failure, CKD LE edema ESRD,with volume overload, on dialysis now Renal consulted Echo done 04/29 Still on lasix 80 bid watch BP 05/[address] Donato, dialysis today 05/14 PVR 238-242-303 ml, continue with PVR another day. Weight 130 lb 05/15 bun 45 cr 6.77 05/18 bun 67, cr 7.31, on dialysis 05/19 ok to d/c PVRs Diastolic grade 1 heart failure Ef 60% per echo 04/29 Lasix, dialysis 05/14 weight 130 lb 05/16 wt 128 lb 05/20 wt 130 lb 05/23 wt 127 lb 05/24 wt 130 lb L thigh seroma/ L hip pain/ severe OA to L hip Dopplers done 04/29 negative for dvt 05/24 Ordered Hip and Pelvis xrays Hypertension,/ hypotension / bradycardia Continue meds 05/13 bp 103/61 on norvasc, tenormin , lasix 80 bid, lisinopril 5 DC norvasc - parameters added to bp meds Hold lisinopril x 2 days 05/14 Decrease lisinopril to 2.5. bp 108/60 DC atenolol HR 55-64 DC lisimopril 05/15 bp 90/51 05/16 bp 115/60, 102/63, 83/55, 127/83 hr 80-94 05/17 BP 114/64, stable at this time 05/26 BP 120/92, stable Hyperkalemia, related to the chronic kidney disease, on dialysis 05/13 k 3.6 05/15 k 4.4 05/18 K 4.6, stable at this time Hypocalcemia 05/15 ca 8.2 05/18 Ca 8.2, stable at this time Gout allopurinol Metabolic acidosis from the renal failure, better with dialysis Anemia, most recent hemoglobin 8.7, , monitor H/H 05/13 h and h 8.8/ 29.1 05/15 h and h 7.9/ 26.1 Vit b 12 349 Epoetin per renal and IV venofer 05/18 H&H 8.1/26.4, stable at this time 05/22 h and h 9.2/ 29.9 Altered sugars aacu, SSI 05/13 poct 121 05/14 poct 119-135 05/15 Sugars [phone] 05/16 Sugars [phone] 05/17 bg 112-173, stable at this time 05/21 poct 109-133 05/24 Sugars 113-138-106 05/25 sugars 163-94 ?? h/oProstate cancer Bladder management / hx of orchiectomy / urine retention in acutre Voiding ok Ditropan and flomax 05/13 had high volume PVR , dc ditropan. 05/16 PVR los volumes 122-159-0 ml last night 05/18 PVRs 127-234, will monitor 05/19 ok to d/c PVRs Dementia/ cognitive impairment aricept neuropsych consult DVT prophylaxis: on Lovenox Minh hose Echo 05/01/19: Mild concentric left ventricular hypertrophy. Impaired diastolic relaxation Grade I. Ejection fraction is visually estimated at 60 %. There is mild enlargement of left atrium. Mild aortic valve regurgitation. ?? Pain management Today's pain score 0 05/13 percocet 6 q 6 prn, tylenol Lidocaine patch and voltaren 05/18 denies pain ?? Bowel management . Titrate bowel medications for constipation/diarrhea. 05/13 had bm Skin care 05/22 bilateral heels boggy and discolored, podus boots ordered and applied. Wound care to see. Full Resuscitation ? Electronically signed by: MANOJ MORRISON NP, 05/25/2019 9:35 AM Cosigned by Misty Hathaway MD at 06/04/2019 8:12 AM GLOVE TAGGER Associated attestation - Misty Hathaway MD - 06/04/2019 9:12 AM EST The patient is being seen for follow-up of all current problems, BP, BS , HR, labs and strength. Follow up on pain, swallowing, bladder and bowel function. Strength improving, able to do therapy ok. I saw, evaluated and examined the patient face to face in conjunction with the CORK COMPOUNDER and agree with the management and disposition of the patient. History also obtained from Nurse and staff about how the patient did overnight and during the day. I performed mario portions of the follow up history, examination, review of labs and radiology and evaluation. I agree with the subjective, physical exam and assessment and plan details as outlined in the note below. Discussed the mario medical decision making- both assessment and plan, rehabilitation goals and treatment plan with patient, CORK COMPOUNDER , nursing staff, farm operator and the members of the team. * Florencia Moulton MD - 05/24/2019 10:18 PM CST Images from the original note were not included. Rehabilitation Physician Progress Note Patient Name: Jules Mitchell Age: 73 y.o. Patient's Primary Care Physician: Dr. Kwame Berg LOS: 13 DAYS This was a face to face visit with the patient Seen and examined today for rehab and medical issues related to debility with encephalopathy. CC I am walking better HPI and Interval history: Watching pvrs-dced ditropan Less than 300 cc Tolerating HD Blood sugars are below 150 PVRs remain below 300 cc Ambulating better Family teaching Tolerating dialysis Addressing PVRs BP low unclear if symptomatic Continues improved ambulation Improving mood Family wishes MR for left leg Patient is walking over 180 feet Reviewed work up on admission for left leg pain No xrays done by acute team-ordered xrays Subjective Review of Systems Denies chest pain, dyspnea or nausea. PHYSICAL EXAM: (Retired) Vitals (last 3 days) Date/Time Temp Pulse Resp BP SpO2 Weight 05/24/191999 98.4 ??F (36.9 ??C) 83 16 139/71 99 % -- 05/24/19 1729 -- -- -- 101/60 -- -- 05/24/19 0846 -- 89 -- 112/58 97 % -- 05/24/19 0700 97 ??F (36.1 ??C) 77 16 95/55 98 % -- 05/24/19 0600 -- -- -- -- -- 130 lb 8 oz (59.2 kg) 05/23/192030 97.1 ??F (36.2 ??C) 79 16 133/67 99 % -- 05/23/19 0730 98.9 ??F (37.2 ??C) 97 20 (!) 120/92 98 % -- 05/23/19 0353 -- -- -- -- -- 127 lb 11.2 oz (57.9 kg) 05/22/192031 98.3 ??F (36.8 ??C) 82 18 (!) 159/69 97 % -- 05/22/19 0720 98.3 ??F (36.8 ??C) 80 19 127/65 99 % -- 05/21/192042 98.9 ??F (37.2 ??C) 90 18 116/62 100 % 128 lb 4.8 oz (58.2 kg) 05/21/19 0730 97.5 ??F (36.4 ??C) 79 18 110/64 97 % -- Blood sugars: POC Glucose POC Glucose 05/24/19 1718 163 05/24/19 1221 106 05/24/19 0617 106 Weights (last 3 days) Date/Time Weight 05/24/19 0600 130 lb 8 oz (59.2 kg) 05/23/19 0353 127 lb 11.2 oz (57.9 kg) 05/21/192042 128 lb 4.8 oz (58.2 kg) GENERAL: Alert, NAD smiling-on bike HEENT: EOMI MMM NECK: no JVD LUNGS: Clear to auscultation CV: RR ABDOMEN: Soft NT to palpation EXTREMITIES: No edema SKIN: No new issues TONE: normal MUSCULOSKELETAL: UE without weakness RLE antigravity LLE with hip flexion, knee extension, ankle dorsiflexion-improved ROM and strength NEURO: No tremors PSYCH: SMILING Lab Data Reviewed current lab results available to me today. Lab Results Component Value Date WBC 2.4 (L) 05/22/2019 HGB 9.2 (L) 05/22/2019 HCT 29.9 (L) 05/22/2019 MCV 98.7 (H) 05/22/2019 PLT 209 05/22/2019 Lab Results Component Value Date GLUCOSE 146 (H) 05/22/2019 CALCIUM 8.4 05/22/2019 NA 135 (L) 05/22/2019 K 3.8 05/22/2019 CO2 26 05/22/2019 CL 96 (L) 05/22/2019 BUN 42 (H) 05/22/2019 CREATININE 6.41 (H) 05/22/2019 ANIONGAP 13 05/22/2019 Anemia leukopenia ESRD Imaging Reviewed current imaging results available to me today. No results found. Allergies No Known Allergies Medication List Scheduled/Continuous Medications Scheduled Medication Dose/Rate, Route, Frequency Last Action allopurinol (ZYLOPRIM) tablet 100 mg 100 mg, PO, Once a day Given: 05/24 840 atorvastatin (LIPITOR) tablet 20 mg 20 mg, PO, Once a day Given: 05/24 840 bisacodyl (DULCOLAX) suppository 10 mg 10 mg, RE, Once Ordered Diclofenac Sodium (VOLTAREN) 1 % gel 2 g 2 g, TOP, BID Given: 05/24 2012 docusate sodium (COLACE) capsule 100 mg 100 mg, PO, Once a day Given: 05/24 840 donepezil (ARICEPT) tablet 10 mg 10 mg, PO, Nightly Given: 05/24 2011 epoetin ashly-epbx (RETACRIT) 4,000 Units 4,000 Units, SC, T-Th-Sat w/Dialysis Given: 05/22 1212 folic acid (FOLVITE) tablet 1 mg 1 mg, PO, Once a day Given: 05/24 0842 furosemide (LASIX) tablet 80 mg 80 mg, PO, BID DIURETIC Given: 05/23 1617 heparin (porcine) injection 1,000 Units 1,000 Units, IK, 3x/week in HD Given: 05/22 2155 heparin (porcine) injection 1,000 Units 1,000 Units, IK, 3x/week in HD Given: 05/22 2155 heparin (porcine) injection 2,000 Units 2,000 Units, IV, During Dialysis Given: 05/20 113 heparin (porcine) injection 4,300 Units 4,300 Units, IV, 3x/week in HD Given: 05/22 2156 insulin lispro (HumaLOG) injection 0-6 Units 2 Units, SC, AC & HS Given - Witness Not Required:05/16 174 iron sucrose (VENOFER) injection 200 mg 200 mg, IV, During Dialysis Given: 05/20 113 lidocaine (LIDOCARE) 4 % patch 2 patch 2 patch, TD, Once a day Medication Applied: 05/23 800 MINERIN cream cream No Dose/Rate, TOP, BID Given: 05/24 2011 tamsulosin (FLOMAX) 24 hr capsule 0.4 mg 0.4 mg, PO, Nightly Given: 05/24 2011 Current Functional Status reviewed today: Ambulation Level of Assistance: Close Supervision and Minimal Verbal Cues Distance (feet): 186 Gait Analysis: 1 x 186 with RW and close sup throughout. Pt demonstrates increased reliance on UE support from RW, decreased step length, decreased foot clearance and decreased. Pt requires seated rest break upon completion. Pt continues to require intermittent cues for maintaining appropriate distance from RW. Also emphasis on increased gait speed (carry-over from [employer] bike emphasis). Rails: Left Stairs Level of Assistance: Minimal Assistance and Contact Guard Stairs Height of Step: 6-inch Stair Analysis: Pt ascends/descends 14 steps at 6 inches each with L HR, nonreciprocal pattern up (leading with R LE) and down with posterior approach (leading with L LE). Pt demonstrates significantly increased trunk flexion with increased fatigue and increased reliance on UE support for balance and force production. Pt begins with CGA (first 10 steps, however requires varying CGA-Min A for remainder of steps. Seated rest break upon completion. Number of Steps: 14 Section GG CARE Scores Physical Therapy? Car Transfer Car Transfer - CARE Score: 3 (05/18/191548 : Kylie Sanchez PT) Walk 10 Feet Walk 10 Feet - CARE Score: 4 (05/18/191548 : Kylie Sanchez PT) Walk 50 Feet with Two Turns Walk 50 Feet with Two Turns - CARE Score: 4 (05/18/191548 : Kylie Sanchez PT) Walk 150 Feet Walk 150 Feet - CARE Score: 4 (05/18/191548 : Kylie Sanchez PT) Walking 10 Feet on Uneven Surfaces Walking 10 Feet on Uneven Surfaces - CARE Score: 4 (05/18/19 154 : Kylie Sanchez PT) 1 Step (Curb) 1 Step (Curb) - CARE Score: 4 (05/18/191548 : Kylie Sanchez PT) 4 Steps 4 Steps - CARE Score: 4 (05/18/191548 : Kylie Sanchez PT) 12 Steps 12 Steps - CARE Score: 4 (05/18/191548 : Kylie Sanchez PT) Picking Up Object Picking Up Object - CARE Score: 4 (05/18/191548 : Kylie Sanchez PT) Wheel 50 Feet with Two Turns Wheel 50 Feet with Two Turns - CARE Score: 3 (05/18/191548 : Kylie Sanchez PT) Wheel 150 Feet Wheel 150 Feet - CARE Score: 2 (05/18/191548 : Kylie Sanchez PT) BARRIERS: Cognitive impairments anemia Assessment and Plan 1.Etiologic Diagnosis: Encephalopathy in setting of new renal failure-may have dementia-on aricept.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 Minimal assist required for expression and memory. Improved expression 2. Gait disorder multifactorial. Endurance training progressing well. Patient is ambulating with RW 3. ESRD: HD per dr donato 4. Urinary retention, resolved. Off ditropan, all PVR's below 300 cc. Continuing Flomax. 5. Osteoarthritis: Voltaren gel, prn oral analgesics. 6. Dyslipidemia: continuing statin. 7. History of gout: Allopurinol. No new joint complaints. xrays for follow up pending Co-Morbidities that are continuing to impact the rehab process: Problem List: 2019-04: Hyperglycemia 2019-04: Retention of urine 2019-04: Diastolic dysfunction 2019-04: Seroma 2019-04: Abnormality of gait 2019-04: Toxic metabolic encephalopathy 2019-04: End stage renal failure on dialysis 2019-04: Debility 2019-04: Moderate malnutrition 2019-04: Anemia of chronic renal failure 2019-04: Chronic kidney disease, Stage V 2019-04: Essential hypertension 2019-04: Hyperkalemia 2019-04: Hypervolemia 2019-04: Malignant neoplasm of prostate 2019-04: Other hyperlipidemia 2019-04: Metabolic acidosis 2019-04: Latent autoimmune diabetes mellitus in adult Continue therapies. Continue inpatient comprehensive interdisciplinary rehabilitation to address strengthening, mobility skills, self care, cognitive functioning, speech, communication and swallowing needs. The patient continues to require the interdisciplinary team approach and 24 hour monitoring. ADDITIONAL INFORMATION: left leg previous injury, ?seroma asymptomatic EDUCATION/PT TEACHING: therapy goals EQUIPMENT: TBD WW DESTINATION: home CANDI: 05/28/2019 FOLLOW UP PLANS: FLORENCIA Larios MD 05/24/19 10:18 PM * Carmen Donato MD - 05/24/2019 6:57 PM CST Nephrology Progress Note Jules Mitchell [id number] Subjective: Patient seen and examined, denies fever, chills, chest pain, sob, cough, changes in appetite, N/V, diarrhea, abdominal pain, dysuria, hematuria, feeling stronger on rehab Objective: Vital signs: 05/17/191952 BP: 118/56 Pulse: 67 Resp: 16 Temp: 98.4 ??F (36.9 ??C) TempSrc: Oral SpO2: 100% Weight: Height: Physical Exam: General: awake and alert. In NAD Lungs: CTA B/L Heart: RRR, S1 and S2 without rubs Abdomen: Soft, NT/ND, + BS Ext: Without edema Labs: Recent Labs Lab Units 05/22/19 0708 05/20/19 1016 05/18/19 1052 SODIUM MMOL/L BLOOD mmol/L 135* 137 134* POTASSIUM MMOL/L BLOOD mmol/L 3.8 5.6* 4.6 CHLORIDE mmol/L 96* 99 95* CO2 mmol/L 26 23 25 BUN MG/DL BLOOD mg/dL 42* 55* 67* CREATININE mg/dL 6.41* 7.67* 7.31* GLUCOSE MG/DL BLOOD mg/dL 146* 105 128* CALCIUM MG/DL BLOOD mg/dL 8.4 8.6 8.2* ANION GAP BLOOD mmol/L 13 15 14 Recent Labs Lab Units 05/22/19 0708 05/20/19 1016 05/18/19 1052 SODIUM MMOL/L BLOOD mmol/L 135* 137 134* POTASSIUM MMOL/L BLOOD mmol/L 3.8 5.6* 4.6 CHLORIDE mmol/L 96* 99 95* CO2 mmol/L 26 23 25 BUN MG/DL BLOOD mg/dL 42* 55* 67* CREATININE mg/dL 6.41* 7.67* 7.31* GLUCOSE MG/DL BLOOD mg/dL 146* 105 128* CALCIUM MG/DL BLOOD mg/dL 8.4 8.6 8.2* Recent Labs Lab Units 05/22/19 0708 05/20/19 1016 05/18/19 1052 SODIUM MMOL/L BLOOD mmol/L 135* 137 134* POTASSIUM MMOL/L BLOOD mmol/L 3.8 5.6* 4.6 CHLORIDE mmol/L 96* 99 95* CO2 mmol/L 26 23 25 BUN MG/DL BLOOD mg/dL 42* 55* 67* CREATININE mg/dL 6.41* 7.67* 7.31* GLUCOSE MG/DL BLOOD mg/dL 146* 105 128* CALCIUM MG/DL BLOOD mg/dL 8.4 8.6 8.2* Recent Labs Lab Units 05/22/19 0708 05/18/19 1052 WBC X(10)9/L BLOOD x10E9/L 2.4* 4.1* HGB GM/DL BLOOD gm/dL 9.2* 8.1* HCT % BLOOD % 29.9* 26.4* PLT CT X(10)9/L BLOOD x10E9/L 209 275 Assessment/ Plan: Principal Problem: Toxic metabolic encephalopathy Active Problems: Debility Anemia of chronic renal failure Chronic kidney disease, Stage V Essential hypertension Hyperkalemia Hypervolemia Malignant neoplasm of prostate Moderate malnutrition Other hyperlipidemia Retention of urine Diastolic dysfunction Seroma Abnormality of gait End stage renal failure on dialysis Hyperglycemia LOS: 13 days Assessment/Plan ESRD: plan to have dialysis tomorrow. HTN: reasonably controlled with dialysis Acute volume overload related to ESRD: compensated on dialysis and oral Lasix Anemia related to ESRD, iron deficiency: on iron replacment DM Left thigh seroma Hyperlipidemia:on statin Hyperkalemia from ESRD: on dialysis and this is better Generalized weakness from uremia: on rehab Metabolic acidosis: stable on dialysis Constipation: on bowel regimen Weakness: on rehab CARMEN DONATO MD * Tara Alberts RD - 05/24/2019 8:41 AM CST 50-100% po intake of renal, carb controlled diet; weight variations but trending down. encourage pointake and offer snacks. * Manoj Morrison NP - 05/24/2019 8:23 AM CST Images from the original note were not included. HOSPITALIST PROGRESS NOTE Patient Name: Jules Mitchell : 1945 Medical Record: [id number] Admit date 05/11/19 DATE OF SERVICE 05/24/2019 ATTENDING PHYSICIAN Florencia Moulton MD ? CHIEF COMPLAINT Principal Problem: Debility Active Problems: Type 2 diabetes mellitus Anemia of chronic renal failure Chronic kidney disease, Stage V Essential hypertension Hyperkalemia Hypervolemia Malignant neoplasm of prostate Moderate malnutrition Other hyperlipidemia Retention of urine Diastolic dysfunction Seroma Abnormality of gait Toxic metabolic encephalopathy ? HISTORY OF PRESENT ILLNESS ?? The patient is a 73 y.o. y/o male with history of f prostate cancer, DM, and HTN [facility] intermittent left leg pain since last week. he has left sided buttock pain that radiates down posterior aspect of leg to knee. Hx coagulopathy, Hx venous thromboembolism. Pt was in acute renal failure with volume overload. Seen by renal , initiated dialysis , ?? currently here for therapy Todays chief Complains gen weakness Left leg pain ?? Confused about details of history ?? Duration of problems- Intensity Type Associated symptoms Aggrevating/relieving factors ? History also obtained from review of patients previous acute hospitalization chart, current rehabilitation chart , discussion with family members in the room and discussion with nursing staff taking care of the patient. ? SUBJECTIVE 05/13 initial progress note The patient is being seen for follow-up of all current problems, BP, BS , HR, labs and strength. Follow up on pain, swallowing, bladder and bowel function. Patient denies any chest pain, palpitations, shortness of breath, cough, abdominal pain, nausea, vomiting, diarrhea or constipation. No overnight events. Denies pain. Pain controlled on meds prescribed. Bowel movement 05/10. Lactulose ordered. Refused last night suppository. Had bm today 05/13 bp low bp 103/61 DC norvasc - hold lisinopril x 2 days Has 800 ml urine output with current urine agents- DC ditropan per PMR. Bladder scan [phone] ml had to be straight cath 800 ml out PVR 600 ml Due for dialysis today followed by Dr Donato Case discussed with Dr. Moulton, physiatry. Minh burns added Liver enzymes OK Seen by Neuropsych Appetite good and states slept well. Patient participating with therapy and is doing well. No further needs expressed at this time. 05/14 The patient is being seen for follow-up of all current problems, BP, BS , HR, labs and strength. Follow up on pain, swallowing, bladder and bowel function. Patient denies any chest pain, palpitations, shortness of breath, cough, abdominal pain, nausea, vomiting, diarrhea or constipation. No overnight events. 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 Pain controlled on meds prescribed. Bowel movement 05/13 x 2. Pt seen this am sitting up in chair working with [employer]. Discussed pt with Carlos. Walking 100 ft with therapy, eager for exercises today. Requesting topical agent for L knee pain- voltaren gel ordered. Lidocaine patch for L thigh pain- edema improved. 1500 ml off with dialysis yesterday- tolerated. PVR 238-242-303 ml, continue with PVR another day. Weight 130 lb Sugars stable 119-135 Afebrile. HR 60s bp 119/60, 108/62. sats 100 % RA Atenolol held today. Decrease lisinopril to 2.5 Appetite good and states slept well. Patient participating with therapy and is doing well. No further needs expressed at this time. 05/15 The patient is being seen for follow-up of all current problems, BP, BS , HR, labs and strength. Follow up on pain, swallowing, bladder and bowel function. Patient denies any chest pain, palpitations, shortness of breath, cough, abdominal pain, nausea, vomiting, diarrhea or constipation. No overnight events. Denies pain. Pain controlled on meds prescribed. Pain better with lidocaine and voltaren gel. Bowel movement 05/13 bp soft this am- hold atenolol x 2 days Hold lasix and lisonopril DC atenolol- feels dizzy with therapy Notified Bandar Donato. Dc lisinopril, wants to continue lasix BID pvr 278 ml, 330-224. Has x 1 straigh cath last night with 300 ml out urine. No weight recorded this am Sugars [phone]- Dialysis today, BP still soft 90/51, HR 57-64. Holding atenolol x 2 days and held lasix and lisinopril this am. PVR 278 ml 330-224, was cath x 1 today with 300 ml out Appetite good and states slept well. Patient participating with therapy and is doing well. No further needs expressed at this time. BP low still down to 80s On dialysis Called and D/W Dr Donato - continue lasix Since pt having good urine out put ?? DC Lisinopril AND CHIVO I 05/16 The patient is being seen for follow-up of all current problems, BP, BS , HR, labs and strength. Follow up on pain, swallowing, bladder and bowel function. Patient denies any chest pain, palpitations, shortness of breath, cough, abdominal pain, nausea, vomiting, diarrhea or constipation. No overnight events. Denies pain. Pain controlled on meds prescribed. Bowel movement today. Pain better with patch. Has not taken percocet since 05/13 Afebrile. HR 90s-80 bp 102/63 sats 98% RA. Still off most BP meds-monitor. 2000 ml off with dialysis. PVR 122-159-0 ml. [place] stable 128 lb. Pt seen sitting up in chair watching tv, L thigh edema down. Sugars [phone] Labs done 05/15. Appetite good and states slept well. Patient participating with therapy and is doing well. No further needs expressed at this time. 05/17 Patient seen and evaluated on daily rounds. No overnight events reported. Patient has been participating with therapy and is doing well. Pt seen today sitting up in wheelchair. Pt denies pain at thistime, well controlled with current medications. Slept well and appetite good. Last BM yesterday, noissues. Voiding well. Continue dialysis. Patient denies any chest pain, palpitations, shortness of breath, cough, abdominal pain, nausea and vomiting, or constipation. BP 114/64 without BP meds, HR 64. BG stable. No other needs or concerns expressed at this time. 05/18 Patient seen and evaluated on daily rounds. No overnight events reported. Patient has been participating with therapy and is doing well. Pt seen today sitting up in wheelchair. Pt denies pain at thistime, not requiring pain medications. Slept okay and appetite good. Last BM today, no issues. Voiding well. PVRs 127-234 ml. Patient denies any chest pain, palpitations, shortness of breath, cough, abdominal pain, nausea and vomiting, or constipation. BP 105/57, HR 67. BG stable. Anticipate dialysis with labs today. No other needs or concerns expressed at this time. 05/19 Patient seen and evaluated on daily rounds. No overnight events reported. Patient has been participating with therapy and is doing well. Pt seen today sitting up in wheelchair. Pt denies pain at thistime, well controlled with current medications. Slept off and on and appetite good. Last BM today, no issues. Voiding well. PVR 190-195. Patient denies any chest pain, palpitations, shortness of breath, cough, abdominal pain, nausea and vomiting, or constipation. BP 90/49, HR 83. BG stable. Labs obtained yesterday, reviewed. No other needs or concerns expressed at this time. 05/20 Patient seen and evaluated on daily rounds. No overnight events reported. Patient has been participating with therapy and is doing well. Pt seen today sitting up in wheelchair. Pt reports he was sorewith therapy, but denies pain at this time, well controlled with current medications. Slept well and appetite good, but his uneaten breakfast tray was taken while he was in therapy. Last BM yesterday, no issues. Voiding well. Dialysis today. Patient denies any chest pain, palpitations, shortness ofbreath, cough, abdominal pain, nausea and vomiting, or constipation. BP 109/64, HR 83. Labs to be obtained today with dialysis. BG stable. No other needs or concerns expressed at this time. 05/21 Patient seen and evaluated on daily rounds. No overnight events reported. Patient has been participating with therapy and is doing well. Pt seen today sitting up in wheelchair. Pt denies pain at thistime, well controlled with current medications. Slept well and appetite good. Last BM yesterday, noissues. Voiding well. Patient denies any chest pain, palpitations, shortness of breath, cough, abdominal pain, nausea and vomiting, or constipation. BP 110/64, HR 79. BG stable. No other needs or concerns expressed at this time. 05/22 Patient seen and evaluated on daily rounds. No overnight events reported. Patient has been participating with therapy and is doing well. Pt seen today sitting up in wheelchair. Pt reports he had painto left heel level 02/04 this morning but denies pain at this time, well controlled with current medications. Mild discoloration and bogginess to bilateral heels. Podus boots ordered and applied. Wound care to see. Pt's family member called and reports Dr Donato requested an MRI of the hip earlier this week. Pt denies hip pain at this time. Will follow up with Dr Donato on Friday concerning this. Slept well and appetite good. Last BM 2 days ago, no issues. Voiding well, dialysis today. Patient denie s any chest pain, palpitations, shortness of breath, cough, abdominal pain, nausea and vomiting, or constipation. BP 127/65, HR 80. BG stable. No other needs or concerns expressed at this time. 05/23 Patient seen and evaluated on daily rounds. No overnight events reported. Patient has been participating with therapy and is doing well. Pt seen today sitting up in wheelchair. Pt denies pain at thistime, well controlled with current medications. Podus boots in place. Slept well and appetite good.Last BM yesterday, no issues. Voiding well. Dialysis. Patient denies any chest pain, palpitations, shortness of breath, cough, abdominal pain, nausea and vomiting, or constipation. BP 120/92, HR 97. BG stable. No other needs or concerns expressed at this time. 05/24 The patient is being seen for follow-up of all current problems, BP, BS , HR, labs and strength. Follow up on pain, swallowing, bladder and bowel function. Patient denies any chest pain, palpitations, shortness of breath, cough, abdominal pain, nausea, vomiting, diarrhea or constipation. No overnight events. + L hip pain. Pain controlled on meds prescribed. Bowel movement 05/23. Sugars [phone] Moulton, physiatry. Labs due tomorrow with dialysis. Afebrile. HR 77-90 sats 97% RA bp 112/58 Ordered Hip and Pelvis xrays Appetite good and states slept well. Patient participating with therapy and is doing well. No further needs expressed at this time. REVIEW OF SYSTEMS General: no weight loss, [...] the other 14 organ systems are negative CURRENT MEDICATIONS Current Facility-Administered Medications: ??? acetaminophen (TYLENOL) tablet 325 mg, 325 mg, PO/Per Tube, Q6H PRN, Misty Hathaway MD, 325 mgat 05/11/19 2321 ??? allopurinol (ZYLOPRIM) tablet 100 mg, 100 mg, Oral, Once a day, Misty Hathaway MD, 100 mg at 05/23/19 0800 ??? atorvastatin (LIPITOR) tablet 20 mg, 20 mg, Oral, Once a day, Misty Hathaway MD, 20 mg at 05/23/19 0800 ??? bisacodyl (DULCOLAX) suppository 10 mg, 10 mg, Rectal, Once, Manoj Morrison, CORK COMP[employer]ER ??? dextrose (GLUTOSE) 40 % oral gel 15 g, 15 g, Oral, PRN, Manoj Morrison, CORK COMP[employer]ER ??? dextrose 5 % and sodium chloride 0.45 % infusion, 50 mL/hr, Intravenous, PRN, Manoj Morrison, CORK COMP[employer]ER ??? dextrose 50 % IV solution 25 g, 25 g, Intravenous, PRN, Manoj Morrison, CORK COMP[employer]ER ??? Diclofenac Sodium (VOLTAREN) 1 % gel 2 g, 2 g, Topical, 2 times per day, Manoj Morrison NP, 2 g at 05/23/192241 ??? docusate sodium (COLACE) capsule 100 mg, 100 mg, Oral, Once a day, Misty Hathaway MD, 100 mg at 05/23/19 0800 ??? donepezil (ARICEPT) tablet 10 mg, 10 mg, Oral, Nightly, Misty Hathaway MD, 10 mg at 05/23/192241 ??? epoetin ashly-epbx (RETACRIT) 4,000 Units, 4,000 Units, Subcutaneous, w/Dialysis, Froy Donato MD, 4,000 Units at 05/22/19 1212 ??? folic acid (FOLVITE) tablet 1 mg, 1 mg, Oral, Once a day, Misty Hathaway MD, 1 mg at 05/23/19 0801 ??? furosemide (LASIX) tablet 80 mg, 80 mg, Oral, BID DIURETIC, ALEIDA Phan, 80 mg at 05/23/19 1617 ??? glucagon (human recombinant) injection 1 mg, 1 mg, Intramuscular, PRN, Manoj Morrison, C[employer] COMP[employer] ??? heparin (porcine) injection 1,000 Units, 1,000 Units, Intracatheter, Once per day on Fri, Debi Wetzel RN, 1,000 Units at 05/22/19 2156 ??? heparin (porcine) injection 1,000 Units, 1,000 Units, Intracatheter, Once per day on Fri Sat, Debi Wetzel RN, 1,000 Units at 05/22/19 2156 ??? heparin (porcine) injection 2,000 Units, 2,000 Units, Intravenous, During Dialysis, Debi Wetzel RN, 2,000 Units at 05/20/19 1130 ??? heparin (porcine) injection 4,300 Units, 4,300 Units, Intravenous, Once per day on Fri Sat,Florencia Moulton MD, 4,300 Units at 05/22/192156 ? ? insulin lispro (HumaLOG) injection 0-6 Units, 0-6 Units, Subcutaneous, AC & HS, 2 Units at 05/16/19 1746 AND POCT glucose, , , AC & HS, Manoj Morrison NP ??? iron sucrose (VENOFER) injection 200 mg, 200 mg, Intravenous, During Dialysis, Carmen Donato MD, 200 mg at 05/20/19 1132 ??? lidocaine (LIDOCARE) 4 % patch 2 patch, 2 patch, Transdermal, Once a day, Manoj Morrison NP, 2 patch at 05/23/19 0801 ??? oxyCODONE-acetaminophen (PERCOCET) 5-325 MG 1 tablet, 1 tablet, Oral, Q6H PRN, Misty Hathaway MD, 1 tablet at 05/22/19 0739 ??? polyethylene glycol (MIRALAX) packet 17 g, 17 g, Oral, Daily PRN, Mike Zamora MD, 17 g at 05/19/19 0852 ??? tamsulosin (FLOMAX) 24 hr capsule 0.4 mg, 0.4 mg, Oral, Nightly, Misty Hathaway MD, 0.4 mg at 05/23/19 2242 PHYSICAL EXAM WEIGHTS 136 lb 1 oz (61.7 kg) ?? General appearance: awake, alert, cooperative, no distress HEENT: Normocephalic, No icterus, No oral lesions, [...] without mass, non-tender, with normal bowel sounds, External Genitalia not examined, groin Extremities: no clubbing, cyanosis or edema, no calf tenderness Musculoskeletal:no swelling of joints.no redness, FROM otherjoints Psychologic: Mood and affect appropriate, no suicidal ideation. Skin: No rash, swelling or erythema identified . Warm and Dry, R chest dialysis cath with tegaderm dressing clean dry and intact. Neurologic/WHITESMITH:Alert & oriented x 2 confused at times, poor historian, Speech normal, Tongue and uvula central Strength is 4/5 in all extremities ?? No clonus Gait not tested ? Please see height, weight, and BP reported elsewhere as part of this encounter ?? LABS CBC: Recent Labs Lab Units 05/22/19 0708 WBC X(10)9/L BLOOD x10E9/L 2.4* HGB GM/DL BLOOD gm/dL 9.2* PLT CT X(10)9/L BLOOD x10E9/L 209 MCV FL BLOOD fl 98.7* BMP: Recent Labs Lab Units 05/22/19 0708 SODIUM MMOL/L BLOOD mmol/L 135* POTASSIUM MMOL/L BLOOD mmol/L 3.8 CHLORIDE mmol/L 96* CO2 mmol/L 26 BUN MG/DL BLOOD mg/dL 42* CREATININE mg/dL 6.41* GLUCOSE MG/DL BLOOD mg/dL 146* CALCIUM MG/DL BLOOD mg/dL 8.4 DATA Vitals: 05/23/19 0353 05/23/19 0730 05/23/19 2031 05/24/19 0600 BP: (!) 120/92 133/67 Pulse: 97 79 Resp: 20 16 Temp: 98.9 ??F (37.2 ??C) 97.1 ??F (36.2 ??C) TempSrc: Oral Oral SpO2: 98% 99% Weight: 127 lb 11.2 oz (57.9 kg) 130 lb 8 oz (59.2 kg) Height: POC Glucose POC Glucose 05/24/19 0617 106 05/23/19 2100 138 05/23/19 1700 113 05/23/19 1100 95 Weights (last 3 days) Date/Time Weight 05/24/19 0600 130 lb 8 oz (59.2 kg) 05/23/19 0353 127 lb 11.2 oz (57.9 kg) 05/21/19 2043 128 lb 4.8 oz (58.2 kg) @ANTICOAGSUMMARY@ @FLOWDATE(2706:LAST)@ Intake/Output Summary (Last 24 hours) at 05/24/2019 0823 Last data filed at 05/23/2019 1700 Gross per 24 hour Intake 480 ml Output -- Net 480 ml IMAGING STUDIES & OTHER STUDIES ?? ASSESSMENT AND PLAN Principal Problem: Toxic metabolic encephalopathy Active Problems: Debility Anemia of chronic renal failure Chronic kidney disease, Stage V Essential hypertension Hyperkalemia Hypervolemia Malignant neoplasm of prostate Moderate malnutrition Other hyperlipidemia Retention of urine Diastolic dysfunction Seroma Abnormality of gait End stage renal failure on dialysis Hyperglycemia Debility Active Problems: Type 2 diabetes mellitus Anemia of chronic renal failure Chronic kidney disease, Stage V Essential hypertension Hyperkalemia Hypervolemia Malignant neoplasm of prostate Moderate malnutrition Other hyperlipidemia Retention of urine Diastolic dysfunction Seroma Abnormality of gait Toxic metabolic encephalopathy Acute renal failure, CKD LE edema ESRD,with volume overload, on dialysis now Renal consulted Echo done 04/29 Still on lasix 80 bid watch BP 05/[address] Donato, dialysis today 05/14 PVR 238-242-303 ml, continue with PVR another day. Weight 130 lb 05/15 bun 45 cr 6.77 05/18 bun 67, cr 7.31, on dialysis 05/19 ok to d/c PVRs Diastolic grade 1 heart failure Ef 60% per echo 04/29 Lasix, dialysis 05/14 weight 130 lb 05/16 wt 128 lb 05/20 wt 130 lb 05/23 wt 127 lb 05/24 wt 130 lb L thigh seroma/ L hip pain Dopplers done 04/29 negative for dvt 05/24 Ordered Hip and Pelvis xrays Hypertension,/ hypotension / bradycardia Continue meds 05/13 bp 103/61 on norvasc, tenormin , lasix 80 bid, lisinopril 5 DC norvasc - parameters added to bp meds Hold lisinopril x 2 days 05/14 Decrease lisinopril to 2.5. bp 108/60 DC atenolol HR 55-64 DC lisimopril 05/15 bp 90/51 05/16 bp 115/60, 102/63, 83/55, 127/83 hr 80-94 05/17 BP 114/64, stable at this time 05/26 BP 120/92, stable Hyperkalemia, related to the chronic kidney disease, on dialysis 05/13 k 3.6 05/15 k 4.4 05/18 K 4.6, stable at this time Hypocalcemia 05/15 ca 8.2 05/18 Ca 8.2, stable at this time Gout allopurinol Metabolic acidosis from the renal failure, better with dialysis Anemia, most recent hemoglobin 8.7, , monitor H/H 05/13 h and h 8.8/ 29.1 05/15 h and h 7.9/ .1 Vit b 12 349 Epoetin per renal and IV venofer 05/18 H&H 8.1/.4, stable at this time Altered sugars aacu, SSI 05/13 poct 121 05/14 poct 119-135 05/15 Sugars [phone] 05/16 Sugars [phone] 05/17 bg 112-173, stable at this time 05/21 poct 109-133 05/24 Sugars 113-138-106 ?? h/oProstate cancer Bladder management / hx of orchiectomy / urine retention in acutre Voiding ok Ditropan and flomax 05/13 had high volume PVR , dc ditropan. 05/16 PVR los volumes 122-159-0 ml last night 05/18 PVRs 127-234, will monitor 05/19 ok to d/c PVRs Dementia/ cognitive impairment aricept neuropsych consult DVT prophylaxis: on Lovenox Minh hose Echo 05/01/19: Mild concentric left ventricular hypertrophy. Impaired diastolic relaxation Grade I. Ejection fraction is visually estimated at 60 %. There is mild enlargement of left atrium. Mild aortic valve regurgitation. ?? Pain management Today's pain score 0 05/13 percocet 6 q 6 prn, tylenol Lidocaine patch and voltaren 05/18 denies pain ?? Bowel management . Titrate bowel medications for constipation/diarrhea. 05/13 had bm Skin care 05/22 bilateral heels boggy and discolored, podus boots ordered and applied. Wound care to see. Full Resuscitation ? Electronically signed by: MANOJ MORRISON NP, 05/24/2019 8:23 AM Cosigned by Misty Hathaway MD at 05/25/2019 12:11 AM GLOVE TAGGER Associated attestation - Misty Hathaway MD - 05/25/2019 1:11 AM EST The patient is being seen for follow-up of all current problems, BP, BS , HR, labs and strength. Follow up on pain, swallowing, bladder and bowel function. Strength improving, able to do therapy ok. I saw, evaluated and examined the patient face to face in conjunction with the CORK COMPOUNDER and agree with the management and disposition of the patient. History also obtained from Nurse and staff about how the patient did overnight and during the day. I performed mario portions of the follow up history, examination, review of labs and radiology and evaluation. I agree with the subjective, physical exam and assessment and plan details as outlined in the note below. Discussed the mario medical decision making- both assessment and plan, rehabilitation goals and treatment plan with patient, CORK COMPOUNDER , nursing staff, farm operator and the members of the team. * Carmen Donato MD - 05/23/2019 6:51 PM CST Nephrology Progress Note Jlues Mitchell [id number] Subjective: Patient seen and examined, denies fever, chills, chest pain, sob, cough, changes in appetite, N/V, diarrhea, abdominal pain, dysuria, hematuria, feeling stronger on rehab Objective: Vital signs: 05/17/191952 BP: 118/56 Pulse: 67 Resp: 16 Temp: 98.4 ??F (36.9 ??C) TempSrc: Oral SpO2: 100% Weight: Height: Physical Exam: General: awake and alert. In NAD Lungs: CTA B/L Heart: RRR, S1 and S2 without rubs Abdomen: Soft, NT/ND, + BS Ext: Without edema Labs: Recent Labs Lab Units 05/22/19 0708 05/20/19 1016 05/18/19 1052 SODIUM MMOL/L BLOOD mmol/L 135* 137 134* POTASSIUM MMOL/L BLOOD mmol/L 3.8 5.6* 4.6 CHLORIDE mmol/L 96* 99 95* CO2 mmol/L 26 23 25 BUN MG/DL BLOOD mg/dL 42* 55* 67* CREATININE mg/dL 6.41* 7.67* 7.31* GLUCOSE MG/DL BLOOD mg/dL 146* 105 128* CALCIUM MG/DL BLOOD mg/dL 8.4 8.6 8.2* ANION GAP BLOOD mmol/L 13 15 14 Recent Labs Lab Units 05/22/19 0708 05/20/19 1016 05/18/19 1052 SODIUM MMOL/L BLOOD mmol/L 135* 137 134* POTASSIUM MMOL/L BLOOD mmol/L 3.8 5.6* 4.6 CHLORIDE mmol/L 96* 99 95* CO2 mmol/L 26 23 25 BUN MG/DL BLOOD mg/dL 42* 55* 67* CREATININE mg/dL 6.41* 7.67* 7.31* GLUCOSE MG/DL BLOOD mg/dL 146* 105 128* CALCIUM MG/DL BLOOD mg/dL 8.4 8.6 8.2* Recent Labs Lab Units 05/22/19 0708 05/20/19 1016 05/18/19 1052 SODIUM MMOL/L BLOOD mmol/L 135* 137 134* POTASSIUM MMOL/L BLOOD mmol/L 3.8 5.6* 4.6 CHLORIDE mmol/L 96* 99 95* CO2 mmol/L 26 23 25 BUN MG/DL BLOOD mg/dL 42* 55* 67* CREATININE mg/dL 6.41* 7.67* 7.31* GLUCOSE MG/DL BLOOD mg/dL 146* 105 128* CALCIUM MG/DL BLOOD mg/dL 8.4 8.6 8.2* Recent Labs Lab Units 05/22/19 0708 05/18/19 1052 WBC X(10)9/L BLOOD x10E9/L 2.4* 4.1* HGB GM/DL BLOOD gm/dL 9.2* 8.1* HCT % BLOOD % 29.9* 26.4* PLT CT X(10)9/L BLOOD x10E9/L 209 275 Assessment/ Plan: Principal Problem: Toxic metabolic encephalopathy Active Problems: Debility Anemia of chronic renal failure Chronic kidney disease, Stage V Essential hypertension Hyperkalemia Hypervolemia Malignant neoplasm of prostate Moderate malnutrition Other hyperlipidemia Retention of urine Diastolic dysfunction Seroma Abnormality of gait End stage renal failure on dialysis Hyperglycemia LOS: 13 days Assessment/Plan ESRD: plan to have dialysis on Friday. HTN: reasonably controlled with dialysis Acute volume overload related to ESRD: compensated on dialysis and oral Lasix Anemia related to ESRD, iron deficiency: on iron replacment DM Left thigh seroma Hyperlipidemia:on statin Hyperkalemia from ESRD: on dialysis and this is better Generalized weakness from uremia: on rehab Metabolic acidosis: stable on dialysis Constipation: on bowel regimen Weakness: on rehab CARMEN DONATO MD * Titayared Vargas, BEAM RACKER - 05/23/2019 2:35 PM CST Images from the original note were not included. HOSPITALIST PROGRESS NOTE Patient Name: Jules Mitchell : 1945 Medical Record: [id number] Admit date 05/11/19 DATE OF SERVICE 05/23/2019 ATTENDING PHYSICIAN Florencia Moulton MD ? CHIEF COMPLAINT Principal Problem: Debility Active Problems: Type 2 diabetes mellitus Anemia of chronic renal failure Chronic kidney disease, Stage V Essential hypertension Hyperkalemia Hypervolemia Malignant neoplasm of prostate Moderate malnutrition Other hyperlipidemia Retention of urine Diastolic dysfunction Seroma Abnormality of gait Toxic metabolic encephalopathy ? HISTORY OF PRESENT ILLNESS ?? The patient is a 73 y.o. y/o male with history of f prostate cancer, DM, and HTN [facility] intermittent left leg pain since last week. he has left sided buttock pain that radiates down posterior aspect of leg to knee. Hx coagulopathy, Hx venous thromboembolism. Pt was in acute renal failure with volume overload. Seen by renal , initiated dialysis , ?? currently here for therapy Todays chief Complains gen weakness Left leg pain ?? Confused about details of history ?? Duration of problems- Intensity Type Associated symptoms Aggrevating/relieving factors ? History also obtained from review of patients previous acute hospitalization chart, current rehabilitation chart , discussion with family members in the room and discussion with nursing staff taking care of the patient. ? SUBJECTIVE 05/13 initial progress note The patient is being seen for follow-up of all current problems, BP, BS , HR, labs and strength. Follow up on pain, swallowing, bladder and bowel function. Patient denies any chest pain, palpitations, shortness of breath, cough, abdominal pain, nausea, vomiting, diarrhea or constipation. No overnight events. Denies pain. Pain controlled on meds prescribed. Bowel movement 05/10. Lactulose ordered. Refused last night suppository. Had bm today 05/13 bp low bp 103/61 DC norvasc - hold lisinopril x 2 days Has 800 ml urine output with current urine agents- DC ditropan per PMR. Bladder scan [phone] ml had to be straight cath 800 ml out PVR 600 ml Due for dialysis today followed by Dr Donato Case discussed with Dr. Moulton, physiatry. Minh burns added Liver enzymes OK Seen by Neuropsych Appetite good and states slept well. Patient participating with therapy and is doing well. No further needs expressed at this time. 05/14 The patient is being seen for follow-up of all current problems, BP, BS , HR, labs and strength. Follow up on pain, swallowing, bladder and bowel function. Patient denies any chest pain, palpitations, shortness of breath, cough, abdominal pain, nausea, vomiting, diarrhea or constipation. No overnight events. 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 Pain controlled on meds prescribed. Bowel movement 05/13 x 2. Pt seen this am sitting up in chair working with [employer]. Discussed pt with Carlos. Walking 100 ft with therapy, eager for exercises today. Requesting topical agent for L knee pain- voltaren gel ordered. Lidocaine patch for L thigh pain- edema improved. 1500 ml off with dialysis yesterday- tolerated. PVR 238-242-303 ml, continue with PVR another day. Weight 130 lb Sugars stable 119-135 Afebrile. HR 60s bp 119/60, 108/62. sats 100 % RA Atenolol held today. Decrease lisinopril to 2.5 Appetite good and states slept well. Patient participating with therapy and is doing well. No further needs expressed at this time. 05/15 The patient is being seen for follow-up of all current problems, BP, BS , HR, labs and strength. Follow up on pain, swallowing, bladder and bowel function. Patient denies any chest pain, palpitations, shortness of breath, cough, abdominal pain, nausea, vomiting, diarrhea or constipation. No overnight events. Denies pain. Pain controlled on meds prescribed. Pain better with lidocaine and voltaren gel. Bowel movement 05/13 bp soft this am- hold atenolol x 2 days Hold lasix and lisonopril DC atenolol- feels dizzy with therapy Notified Bandar Donato. Dc lisinopril, wants to continue lasix BID pvr 278 ml, 330-224. Has x 1 straigh cath last night with 300 ml out urine. No weight recorded this am Sugars [phone]- Dialysis today, BP still soft 90/51, HR 57-64. Holding atenolol x 2 days and held lasix and lisinopril this am. PVR 278 ml 330-224, was cath x 1 today with 300 ml out Appetite good and states slept well. Patient participating with therapy and is doing well. No further needs expressed at this time. BP low still down to 80s On dialysis Called and D/W Dr Donato - continue lasix Since pt having good urine out put ?? DC Lisinopril AND CHIVO I 05/16 The patient is being seen for follow-up of all current problems, BP, BS , HR, labs and strength. Follow up on pain, swallowing, bladder and bowel function. Patient denies any chest pain, palpitations, shortness of breath, cough, abdominal pain, nausea, vomiting, diarrhea or constipation. No overnight events. Denies pain. Pain controlled on meds prescribed. Bowel movement today. Pain better with patch. Has not taken percocet since 05/13 Afebrile. HR 90s-80 bp 102/63 sats 98% RA. Still off most BP meds-monitor. 2000 ml off with dialysis. PVR 122-159-0 ml. Weigth stable 128 lb. Pt seen sitting up in chair watching tv, L thigh edema down. Sugars [phone] Labs done 05/15. Appetite good and states slept well. Patient participating with therapy and is doing well. No further needs expressed at this time. 05/17 Patient seen and evaluated on daily rounds. No overnight events reported. Patient has been participating with therapy and is doing well. Pt seen today sitting up in wheelchair. Pt denies pain at thistime, well controlled with current medications. Slept well and appetite good. Last BM yesterday, noissues. Voiding well. Continue dialysis. Patient denies any chest pain, palpitations, shortness of breath, cough, abdominal pain, nausea and vomiting, or constipation. BP 114/64 without BP meds, HR 64. BG stable. No other needs or concerns expressed at this time. 05/18 Patient seen and evaluated on daily rounds. No overnight events reported. Patient has been participating with therapy and is doing well. Pt seen today sitting up in wheelchair. Pt denies pain at thistime, not requiring pain medications. Slept okay and appetite good. Last BM today, no issues. Voiding well. PVRs 127-234 ml. Patient denies any chest pain, palpitations, shortness of breath, cough, abdominal pain, nausea and vomiting, or constipation. BP 105/57, HR 67. BG stable. Anticipate dialysis with labs today. No other needs or concerns expressed at this time. 05/19 Patient seen and evaluated on daily rounds. No overnight events reported. Patient has been participating with therapy and is doing well. Pt seen today sitting up in wheelchair. Pt denies pain at thistime, well controlled with current medications. Slept off and on and appetite good. Last BM today, no issues. Voiding well. PVR 190-195. Patient denies any chest pain, palpitations, shortness of breath, cough, abdominal pain, nausea and vomiting, or constipation. BP 90/49, HR 83. BG stable. Labs obtained yesterday, reviewed. No other needs or concerns expressed at this time. 05/20 Patient seen and evaluated on daily rounds. No overnight events reported. Patient has been participating with therapy and is doing well. Pt seen today sitting up in wheelchair. Pt reports he was sorewith therapy, but denies pain at this time, well controlled with current medications. Slept well and appetite good, but his uneaten breakfast tray was taken while he was in therapy. Last BM yesterday, no issues. Voiding well. Dialysis today. Patient denies any chest pain, palpitations, shortness ofbreath, cough, abdominal pain, nausea and vomiting, or constipation. BP 109/64, HR 83. Labs to be obtained today with dialysis. BG stable. No other needs or concerns expressed at this time. 05/21 Patient seen and evaluated on daily rounds. No overnight events reported. Patient has been participating with therapy and is doing well. Pt seen today sitting up in wheelchair. Pt denies pain at thistime, well controlled with current medications. Slept well and appetite good. Last BM yesterday, noissues. Voiding well. Patient denies any chest pain, palpitations, shortness of breath, cough, abdominal pain, nausea and vomiting, or constipation. BP 110/64, HR 79. BG stable. No other needs or concerns expressed at this time. 05/22 Patient seen and evaluated on daily rounds. No overnight events reported. Patient has been participating with therapy and is doing well. Pt seen today sitting up in wheelchair. Pt reports he had painto left heel level 10/10 this morning but denies pain at this time, well controlled with current medications. Mild discoloration and bogginess to bilateral heels. Podus boots ordered and applied. Wound care to see. Pt's family member called and reports Dr Donato requested an MRI of the hip earlier this week. Pt denies hip pain at this time. Will follow up with Dr Donato on Friday concerning this. Slept well and appetite good. Last BM 2 days ago, no issues. Voiding well, dialysis today. Patient denie s any chest pain, palpitations, shortness of breath, cough, abdominal pain, nausea and vomiting, orconstipation. BP 127/65, HR 80. BG stable. No other needs or concerns expressed at this time. 05/23 Patient seen and evaluated on daily rounds. No overnight events reported. Patient has been participating with therapy and is doing well. Pt seen today sitting up in wheelchair. Pt denies pain at thistime, well controlled with current medications. Podus boots in place. Slept well and appetite good.Last BM yesterday, no issues. Voiding well. Dialysis. Patient denies any chest pain, palpitations, shortness of breath, cough, abdominal pain, nausea and vomiting, or constipation. BP 120/92, HR 97. BG stable. No other needs or concerns expressed at this time. REVIEW OF SYSTEMS General: no weight loss, [...] the other 14 organ systems are negative CURRENT MEDICATIONS Current Facility-Administered Medications: ??? acetaminophen (TYLENOL) tablet 325 mg, 325 mg, PO/Per Tube, Q6H PRN, Misty Hathaway MD, 325 mgat 05/11/19 2321 ??? allopurinol (ZYLOPRIM) tablet 100 mg, 100 mg, Oral, Once a day, Misty Hathaway MD, 100 mg at 05/23/19 0800 ??? atorvastatin (LIPITOR) tablet 20 mg, 20 mg, Oral, Once a day, Misty Hathaway MD, 20 mg at 05/23/19 0800 ??? bisacodyl (DULCOLAX) suppository 10 mg, 10 mg, Rectal, Once, Manoj Morrison, CORK COMPOUNDER ??? dextrose (GLUTOSE) 40 % oral gel 15 g, 15 g, Oral, PRN, Luctashaa Lexil, CORK COMPOUNDER ??? dextrose 5 % and sodium chloride 0.45 % infusion, 50 mL/hr, Intravenous, PRN, Manoj Elliottl, CORK COMP[employer]ER ??? dextrose 50 % IV solution 25 g, 25 g, Intravenous, PRN, Manoj Elliottl, C[employer] COMP[employer]ER ??? Diclofenac Sodium (VOLTAREN) 1 % gel 2 g, 2 g, Topical, 2 times per day, Manoj Morrison, CORK COMPOUNDER, 2 g at 05/23/19 0920 ??? docusate sodium (COLACE) capsule 100 mg, 100 mg, Oral, Once a day, Misty Hathaway MD, 100 mg at 05/23/19 0800 ??? donepezil (ARICEPT) tablet 10 mg, 10 mg, Oral, Nightly, Misty Hathaway MD, 10 mg at 05/22/19 2154 ??? epoetin ashly-epbx (RETACRIT) 4,000 Units, 4,000 Units, Subcutaneous, w/Dialysis, Froy Donato MD, 4,000 Units at 05/22/19 1212 ??? folic acid (FOLVITE) tablet 1 mg, 1 mg, Oral, Once a day, iMsty Hathaway MD, 1 mg at 05/23/19 0801 ??? furosemide (LASIX) tablet 80 mg, 80 mg, Oral, BID DIURETIC, ALEIDA Phan, 80 mg at 05/23/19 0757 ??? glucagon (human recombinant) injection 1 mg, 1 mg, Intramuscular, PRN, Manoj Morrison NP ??? heparin (porcine) injection 1,000 Units, 1,000 Units, Intracatheter, Once per day on Fri, Debi Wetzel RN, 1,000 Units at 05/22/192155 ??? heparin (porcine) injection 1,000 Units, 1,000 Units, Intracatheter, Once per day on Fri, Debi Wetzel RN, 1,000 Units at 05/22/192155 ??? heparin (porcine) injection 2,000 Units, 2,000 Units, Intravenous, During Dialysis, Debi Wetzel RN, 2,000 Units at 05/20/19 1130 ??? heparin (porcine) injection 4,300 Units, 4,300 Units, Intravenous, Once per day on Fri,Florencia Moulton MD, 4,300 Units at 05/22/192156 ? ? insulin lispro (HumaLOG) injection 0-6 Units, 0-6 Units, Subcutaneous, AC & HS, 2 Units at 05/16/19 1746 AND POCT glucose, , , AC & HS, Manoj Morrison, NEENA ??? iron sucrose (VENOFER) injection 200 mg, 200 mg, Intravenous, During Dialysis, Carmen Donato MD, 200 mg at 05/20/19 1132 ??? lidocaine (LIDOCARE) 4 % patch 2 patch, 2 patch, Transdermal, Once a day, Manoj Morrison NP, 2 patch at 05/23/19 0801 ??? oxyCODONE-acetaminophen (PERCOCET) 5-325 MG 1 tablet, 1 tablet, Oral, Q6H PRN, Misty Hathaway MD, 1 tablet at 05/22/19 0739 ??? polyethylene glycol (MIRALAX) packet 17 g, 17 g, Oral, Daily PRN, Mike Zamora MD, 17 g at 05/19/19 0852 ??? tamsulosin (FLOMAX) 24 hr capsule 0.4 mg, 0.4 mg, Oral, Nightly, Misty Hathaway MD, 0.4 mg at 05/22/19 2154 PHYSICAL EXAM WEIGHTS 136 lb 1 oz (61.7 kg) ?? General appearance: awake, alert, cooperative, no distress HEENT: Normocephalic, No icterus, No oral lesions, [...] without mass, non-tender, with normal bowel sounds, External Genitalia not examined, groin Extremities: no clubbing, cyanosis or edema, no calf tenderness Musculoskeletal:no swelling of joints.no redness, FROM otherjoints Psychologic: Mood and affect appropriate, no suicidal ideation. Skin: No rash, swelling or erythema identified . Warm and Dry, R chest dialysis cath with tegaderm dressing clean dry and intact. Neurologic/WHITESMITH:Alert & oriented x 2 confused at times, poor historian, Speech normal, Tongue and uvula central Strength is 4/5 in all extremities ?? No clonus Gait not tested ? Please see height, weight, and BP reported elsewhere as part of this encounter ?? LABS CBC: Recent Labs Lab Units 05/22/19 0708 WBC X(10)9/L BLOOD x10E9/L 2.4* HGB GM/DL BLOOD gm/dL 9.2* PLT CT X(10)9/L BLOOD x10E9/L 209 MCV FL BLOOD fl 98.7* BMP: Recent Labs Lab Units 05/22/19 0708 SODIUM MMOL/L BLOOD mmol/L 135* POTASSIUM MMOL/L BLOOD mmol/L 3.8 CHLORIDE mmol/L 96* CO2 mmol/L 26 BUN MG/DL BLOOD mg/dL 42* CREATININE mg/dL 6.41* GLUCOSE MG/DL BLOOD mg/dL 146* CALCIUM MG/DL BLOOD mg/dL 8.4 DATA Vitals: 05/22/19 0720 05/22/19203105/23/19 0353 05/23/19 0730 BP: 127/65 (!) 159/69 (!) 120/92 Pulse: 80 82 97 Resp: Temp: 98.3 ??F (36.8 ??C) 98.3 ??F (36.8 ??C) 98.9 ??F (37.2 ??C) TempSrc: Oral Oral Oral SpO2: 99% 97% 98% Weight: 127 lb 11.2 oz (57.9 kg) Height: POC Glucose POC Glucose 05/23/19 0649 102 05/22/19 2100 158 05/22/19 1756 125 Weights (last 3 days) Date/Time Weight 05/23/19 0353 127 lb 11.2 oz (57.9 kg) 05/21/192042 128 lb 4.8 oz (58.2 kg) 05/20/19 2106 129 lb 6.4 oz (58.7 kg) 05/20/19 0555 130 lb 14.4 oz (59.4 kg) @ANTICOAGSUMMARY@ @FLOWDATE(2706:LAST)@ Intake/Output Summary (Last 24 hours) at 05/23/2019 1435 Last data filed at 05/23/2019 0800 Gross per 24 hour Intake 480 ml Output -- Net 480 ml IMAGING STUDIES & OTHER STUDIES ?? ASSESSMENT AND PLAN Principal Problem: Toxic metabolic encephalopathy Active Problems: Debility Anemia of chronic renal failure Chronic kidney disease, Stage V Essential hypertension Hyperkalemia Hypervolemia Malignant neoplasm of prostate Moderate malnutrition Other hyperlipidemia Retention of urine Diastolic dysfunction Seroma Abnormality of gait End stage renal failure on dialysis Hyperglycemia Debility Active Problems: Type 2 diabetes mellitus Anemia of chronic renal failure Chronic kidney disease, Stage V Essential hypertension Hyperkalemia Hypervolemia Malignant neoplasm of prostate Moderate malnutrition Other hyperlipidemia Retention of urine Diastolic dysfunction Seroma Abnormality of gait Toxic metabolic encephalopathy Acute renal failure, CKD LE edema ESRD,with volume overload, on dialysis now Renal consulted Echo done 04/29 Still on lasix 80 bid watch BP 05/[address] Donato, dialysis today 05/14 PVR 238-242-303 ml, continue with PVR another day. Weight 130 lb 05/15 bun 45 cr 6.77 05/18 bun 67, cr 7.31, on dialysis 05/19 ok to d/c PVRs Diastolic grade 1 heart failure Ef 60% per echo 04/29 Lasix, dialysis 05/14 weight 130 lb 05/16 wt 128 lb 05/20 wt 130 lb 05/23 wt 127 lb L thigh seroma Dopplers done 04/29 negative for dvt Hypertension,/ hypotension / bradycardia Continue meds 05/13 bp 103/61 on norvasc, tenormin , lasix 80 bid, lisinopril 5 DC norvasc - parameters added to bp meds Hold lisinopril x 2 days 05/14 Decrease lisinopril to 2.5. bp 108/60 DC atenolol HR 55-64 DC lisimopril 05/15 bp 90/51 05/16 bp 115/60, 102/63, 83/55, 127/83 hr 80-94 05/17 BP 114/64, stable at this time 05/26 BP 120/92, stable Hyperkalemia, related to the chronic kidney disease, on dialysis 05/13 k 3.6 05/15 k 4.4 05/18 K 4.6, stable at this time Hypocalcemia 05/15 ca 8.2 05/18 Ca 8.2, stable at this time Gout allopurinol Metabolic acidosis from the renal failure, better with dialysis Anemia, most recent hemoglobin 8.7, , monitor H/H 05/13 h and h 8.8/ 29.1 05/15 h and h 7.9/ 26.1 Vit b 12 349 Epoetin per renal and IV venofer 05/18 H&H 8.1/26.4, stable at this time Altered sugars aacu, SSI 05/13 poct 121 05/14 poct 119-135 05/15 Sugars [phone] 05/16 Sugars [phone] 05/17 bg 112-173, stable at this time 05/21 poct 109-133 ?? h/oProstate cancer Bladder management / hx of orchiectomy / urine retention in acutre Voiding ok Ditropan and flomax 05/13 had high volume PVR , dc ditropan. 05/16 PVR los volumes 122-159-0 ml last night 05/18 PVRs 127-234, will monitor 05/19 ok to d/c PVRs Dementia/ cognitive impairment aricept neuropsych consult DVT prophylaxis: on Lovenox Minh hose Echo 05/01/19: Mild concentric left ventricular hypertrophy. Impaired diastolic relaxation Grade I. Ejection fraction is visually estimated at 60 %. There is mild enlargement of left atrium. Mild aortic valve regurgitation. ?? Pain management Today's pain score 0 05/13 percocet 6 q 6 prn, tylenol Lidocaine patch and voltaren 05/18 denies pain ?? Bowel management . Titrate bowel medications for constipation/diarrhea. 05/13 had bm Skin care 05/22 bilateral heels boggy and discolored, podus boots ordered and applied. Wound care to see. Full Resuscitation ? Electronically signed by: TITA VARGAS ARNP, 05/23/2019 2:35 PM Cosigned by Misty Hathaway MD at 05/25/2019 12:19 AM GLOVE TAGGER Associated attestation - Misty Hathaway MD - 05/25/2019 1:19 AM EST The patient is being seen for follow-up of all current problems, BP, BS , HR, labs and strength. Follow up on pain, swallowing, bladder and bowel function. Strength improving, able to do therapy ok. I saw, evaluated and examined the patient face to face in conjunction with the CORK COMPOUNDER and agree with the management and disposition of the patient. History also obtained from Nurse and staff about how the patient did overnight and during the day. I performed mario portions of the follow up history, examination, review of labs and radiology and evaluation. I agree with the subjective, physical exam and assessment and plan details as outlined in the note below. Discussed the mario medical decision making- both assessment and plan, rehabilitation goals and treatment plan with patient, CORK COMPOUNDER , nursing staff, farm operator and the members of the team. * Carmen Donato MD - 05/22/2019 11:28 AM CST Nephrology Progress Note Jules Mitchell [id number] Subjective: Patient seen and examined, denies fever, chills, chest pain, sob, cough, changes in appetite, N/V, diarrhea, abdominal pain, dysuria, hematuria, feeling stronger on rehab Objective: Vital signs: 05/17/191952 BP: 118/56 Pulse: 67 Resp: 16 Temp: 98.4 ??F (36.9 ??C) TempSrc: Oral SpO2: 100% Weight: Height: Physical Exam: General: awake and alert. In NAD Lungs: CTA B/L Heart: RRR, S1 and S2 without rubs Abdomen: Soft, NT/ND, + BS Ext: Without edema Labs: Recent Labs Lab Units 05/20/19 1016 05/18/19 1052 SODIUM MMOL/L BLOOD mmol/L 137 134* POTASSIUM MMOL/L BLOOD mmol/L 5.6* 4.6 CHLORIDE mmol/L 99 95* CO2 mmol/L 23 25 BUN MG/DL BLOOD mg/dL 55* 67* CREATININE mg/dL 7.67* 7.31* GLUCOSE MG/DL BLOOD mg/dL 105 128* CALCIUM MG/DL BLOOD mg/dL 8.6 8.2* ANION GAP BLOOD mmol/L 15 14 Recent Labs Lab Units 05/20/19 1016 05/18/19 1052 SODIUM MMOL/L BLOOD mmol/L 137 134* POTASSIUM MMOL/L BLOOD mmol/L 5.6* 4.6 CHLORIDE mmol/L 99 95* CO2 mmol/L 23 25 BUN MG/DL BLOOD mg/dL 55* 67* CREATININE mg/dL 7.67* 7.31* GLUCOSE MG/DL BLOOD mg/dL 105 128* CALCIUM MG/DL BLOOD mg/dL 8.6 8.2* Recent Labs Lab Units 05/20/19 1016 05/18/19 1052 SODIUM MMOL/L BLOOD mmol/L 137 134* POTASSIUM MMOL/L BLOOD mmol/L 5.6* 4.6 CHLORIDE mmol/L 99 95* CO2 mmol/L 23 25 BUN MG/DL BLOOD mg/dL 55* 67* CREATININE mg/dL 7.67* 7.31* GLUCOSE MG/DL BLOOD mg/dL 105 128* CALCIUM MG/DL BLOOD mg/dL 8.6 8.2* Recent Labs Lab Units 05/18/19 1052 WBC X(10)9/L BLOOD x10E9/L 4.1* HGB GM/DL BLOOD gm/dL 8.1* HCT % BLOOD % 26.4* PLT CT X(10)9/L BLOOD x10E9/L 275 Assessment/ Plan: Principal Problem: Toxic metabolic encephalopathy Active Problems: Debility Anemia of chronic renal failure Chronic kidney disease, Stage V Essential hypertension Hyperkalemia Hypervolemia Malignant neoplasm of prostate Moderate malnutrition Other hyperlipidemia Retention of urine Diastolic dysfunction Seroma Abnormality of gait End stage renal failure on dialysis Hyperglycemia LOS: 11 days Assessment/Plan ESRD: plan to have dialysis later today. HTN: reasonably controlled with dialysis Acute volume overload related to ESRD: compensated on dialysis and oral Lasix Anemia related to ESRD, iron deficiency: on iron replacment DM Left thigh seroma Hyperlipidemia:on statin Hyperkalemia from ESRD: on dialysis and this is better Generalized weakness from uremia: on rehab Metabolic acidosis: stable on dialysis Constipation: on bowel regimen Weakness: on rehab CARMEN DONATO MD * ALEIDA Phan - 05/22/2019 9:58 AM CST Images from the original note were not included. HOSPITALIST PROGRESS NOTE Patient Name: Jules Mitchell : 1945 Medical Record: [id number] Admit date 05/11/19 DATE OF SERVICE 05/22/2019 ATTENDING PHYSICIAN Florencia Moulton MD ? CHIEF COMPLAINT Principal Problem: Debility Active Problems: Type 2 diabetes mellitus Anemia of chronic renal failure Chronic kidney disease, Stage V Essential hypertension Hyperkalemia Hypervolemia Malignant neoplasm of prostate Moderate malnutrition Other hyperlipidemia Retention of urine Diastolic dysfunction Seroma Abnormality of gait Toxic metabolic encephalopathy ? HISTORY OF PRESENT ILLNESS ?? The patient is a 73 y.o. y/o male with history of f prostate cancer, DM, and HTN [facility] intermittent left leg pain since last week. he has left sided buttock pain that radiates down posterior aspect of leg to knee. Hx coagulopathy, Hx venous thromboembolism. Pt was in acute renal failure with volume overload. Seen by renal , initiated dialysis , ?? currently here for therapy Todays chief Complains gen weakness Left leg pain ?? Confused about details of history ?? Duration of problems- Intensity Type Associated symptoms Aggrevating/relieving factors ? History also obtained from review of patients previous acute hospitalization chart, current rehabilitation chart , discussion with family members in the room and discussion with nursing staff taking care of the patient. ? SUBJECTIVE 05/13 initial progress note The patient is being seen for follow-up of all current problems, BP, BS , HR, labs and strength. Follow up on pain, swallowing, bladder and bowel function. Patient denies any chest pain, palpitations, shortness of breath, cough, abdominal pain, nausea, vomiting, diarrhea or constipation. No overnight events. Denies pain. Pain controlled on meds prescribed. Bowel movement 05/10. Lactulose ordered. Refused last night suppository. Had bm today 05/13 bp low bp 103/61 DC norvasc - hold lisinopril x 2 days Has 800 ml urine output with current urine agents- DC ditropan per PMR. Bladder scan [phone] ml had to be straight cath 800 ml out PVR 600 ml Due for dialysis today followed by Dr Donato Case discussed with Dr. Moulton, physiatry. Minh burns added Liver enzymes OK Seen by Neuropsych Appetite good and states slept well. Patient participating with therapy and is doing well. No further needs expressed at this time. 05/14 The patient is being seen for follow-up of all current problems, BP, BS , HR, labs and strength. Follow up on pain, swallowing, bladder and bowel function. Patient denies any chest pain, palpitations, shortness of breath, cough, abdominal pain, nausea, vomiting, diarrhea or constipation. No overnight events. 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 Pain controlled on meds prescribed. Bowel movement 05/13 x 2. Pt seen this am sitting up in chair working with Carlos wolf. Discussed pt with Carlos. Walking 100 ft with therapy, eager for exercises today. Requesting topical agent for L knee pain- voltaren gel ordered. Lidocaine patch for L thigh pain- edema improved. 1500 ml off with dialysis yesterday- tolerated. PVR 238-242-303 ml, continue with PVR another day. Weight 130 lb Sugars stable 119-135 Afebrile. HR 60s bp 119/60, 108/62. sats 100 % RA Atenolol held today. Decrease lisinopril to 2.5 Appetite good and states slept well. Patient participating with therapy and is doing well. No further needs expressed at this time. 05/15 The patient is being seen for follow-up of all current problems, BP, BS , HR, labs and strength. Follow up on pain, swallowing, bladder and bowel function. Patient denies any chest pain, palpitations, shortness of breath, cough, abdominal pain, nausea, vomiting, diarrhea or constipation. No overnight events. Denies pain. Pain controlled on meds prescribed. Pain better with lidocaine and voltaren gel. Bowel movement 05/13 bp soft this am- hold atenolol x 2 days Hold lasix and lisonopril DC atenolol- feels dizzy with therapy Notified Bandar Donato. Dc lisinopril, wants to continue lasix BID pvr 278 ml, 330-224. Has x 1 straigh cath last night with 300 ml out urine. No weight recorded this am Sugars [phone]- Dialysis today, BP still soft 90/51, HR 57-64. Holding atenolol x 2 days and held lasix and lisinopril this am. PVR 278 ml 330-224, was cath x 1 today with 300 ml out Appetite good and states slept well. Patient participating with therapy and is doing well. No further needs expressed at this time. BP low still down to 80s On dialysis Called and D/W Dr Donato - continue lasix Since pt having good urine out put ?? DC Lisinopril AND CHIVO I 05/16 The patient is being seen for follow-up of all current problems, BP, BS , HR, labs and strength. Follow up on pain, swallowing, bladder and bowel function. Patient denies any chest pain, palpitations, shortness of breath, cough, abdominal pain, nausea, vomiting, diarrhea or constipation. No overnight events. Denies pain. Pain controlled on meds prescribed. Bowel movement today. Pain better with patch. Has not taken percocet since 05/13 Afebrile. HR 90s-80 bp 102/63 sats 98% RA. Still off most BP meds-monitor. 2000 ml off with dialysis. PVR 122-159-0 ml. Weigth stable 128 lb. Pt seen sitting up in chair watching tv, L thigh edema down. Sugars [phone] Labs done 05/15. Appetite good and states slept well. Patient participating with therapy and is doing well. No further needs expressed at this time. 05/17 Patient seen and evaluated on daily rounds. No overnight events reported. Patient has been participating with therapy and is doing well. Pt seen today sitting up in wheelchair. Pt denies pain at thistime, well controlled with current medications. Slept well and appetite good. Last BM yesterday, noissues. Voiding well. Continue dialysis. Patient denies any chest pain, palpitations, shortness of breath, cough, abdominal pain, nausea and vomiting, or constipation. BP 114/64 without BP meds, HR 64. BG stable. No other needs or concerns expressed at this time. 05/18 Patient seen and evaluated on daily rounds. No overnight events reported. Patient has been participating with therapy and is doing well. Pt seen today sitting up in wheelchair. Pt denies pain at thistime, not requiring pain medications. Slept okay and appetite good. Last BM today, no issues. Voiding well. PVRs 127-234 ml. Patient denies any chest pain, palpitations, shortness of breath, cough, abdominal pain, nausea and vomiting, or constipation. BP 105/57, HR 67. BG stable. Anticipate dialysis with labs today. No other needs or concerns expressed at this time. 05/19 Patient seen and evaluated on daily rounds. No overnight events reported. Patient has been participating with therapy and is doing well. Pt seen today sitting up in wheelchair. Pt denies pain at thistime, well controlled with current medications. Slept off and on and appetite good. Last BM today, no issues. Voiding well. PVR 190-195. Patient denies any chest pain, palpitations, shortness of breath, cough, abdominal pain, nausea and vomiting, or constipation. BP 90/49, HR 83. BG stable. Labs obtained yesterday, reviewed. No other needs or concerns expressed at this time. 05/20 Patient seen and evaluated on daily rounds. No overnight events reported. Patient has been participating with therapy and is doing well. Pt seen today sitting up in wheelchair. Pt reports he was sorewith therapy, but denies pain at this time, well controlled with current medications. Slept well and appetite good, but his uneaten breakfast tray was taken while he was in therapy. Last BM yesterday, no issues. Voiding well. Dialysis today. Patient denies any chest pain, palpitations, shortness ofbreath, cough, abdominal pain, nausea and vomiting, or constipation. BP 109/64, HR 83. Labs to be obtained today with dialysis. BG stable. No other needs or concerns expressed at this time. 05/21 Patient seen and evaluated on daily rounds. No overnight events reported. Patient has been participating with therapy and is doing well. Pt seen today sitting up in wheelchair. Pt denies pain at thistime, well controlled with current medications. Slept well and appetite good. Last BM yesterday, noissues. Voiding well. Patient denies any chest pain, palpitations, shortness of breath, cough, abdominal pain, nausea and vomiting, or constipation. BP 110/64, HR 79. BG stable. No other needs or concerns expressed at this time. 05/22 Patient seen and evaluated on daily rounds. No overnight events reported. Patient has been participating with therapy and is doing well. Pt seen today sitting up in wheelchair. Pt reports he had painto left heel level 10/10 this morning but denies pain at this time, well controlled with current medications. Mild discoloration and bogginess to bilateral heels. Podus boots ordered and applied. Wound care to see. Pt's family member called and reports Dr Donato requested an MRI of the hip earlier this week. Pt denies hip pain at this time. Will follow up with Dr Donato on Friday concerning this. Slept well and appetite good. Last BM 2 days ago, no issues. Voiding well, dialysis today. Patient denie s any chest pain, palpitations, shortness of breath, cough, abdominal pain, nausea and vomiting, orconstipation. BP 127/65, HR 80. BG stable. No other needs or concerns expressed at this time. REVIEW OF SYSTEMS General: no weight loss, [...] the other 14 organ systems are negative CURRENT MEDICATIONS Current Facility-Administered Medications: ??? acetaminophen (TYLENOL) tablet 325 mg, 325 mg, PO/Per Tube, Q6H PRN, Misty Hathaway MD, 325 mgat 05/11/19 2321 ??? allopurinol (ZYLOPRIM) tablet 100 mg, 100 mg, Oral, Once a day, Misty Hathawya MD, 100 mg at 05/22/19 0823 ??? atorvastatin (LIPITOR) tablet 20 mg, 20 mg, Oral, Once a day, Misty Hathaway MD, 20 mg at 05/22/19 0822 ??? bisacodyl (DULCOLAX) suppository 10 mg, 10 mg, Rectal, Once, Manoj Morrison, CORK COMPOUNDER ??? dextrose (GLUTOSE) 40 % oral gel 15 g, 15 g, Oral, PRN, Emersona Lexil, CORK COMPOUNDER ??? dextrose 5 % and sodium chloride 0.45 % infusion, 50 mL/hr, Intravenous, PRN, Manoj Elliottl, CORK COMPOUNDER ??? dextrose 50 % IV solution 25 g, 25 g, Intravenous, PRN, Lucija Lexil, CORK COMPOUNDER ??? Diclofenac Sodium (VOLTAREN) 1 % gel 2 g, 2 g, Topical, 2 times per day, Manoj Morrison NP, 2 g at 05/22/19 0824 ??? docusate sodium (COLACE) capsule 100 mg, 100 mg, Oral, Once a day, Misty Hathaway MD, 100 mg at 05/22/19 0823 ??? donepezil (ARICEPT) tablet 10 mg, 10 mg, Oral, Nightly, Misty Hathaway MD, 10 mg at 05/21/192024 ??? epoetin ashly-epbx (RETACRIT) 4,000 Units, 4,000 Units, Subcutaneous, - w/Dialysis, Froy Donato MD, 4,000 Units at 05/20/19 1126 ??? folic acid (FOLVITE) tablet 1 mg, 1 mg, Oral, Once a day, Misty Hathaway MD, 1 mg at 05/22/19 08 ??? furosemide (LASIX) tablet 80 mg, 80 mg, Oral, BID DIURETIC, ALEIDA Phan, 80 mg at 05/22/19 0740 ??? glucagon (human recombinant) injection 1 mg, 1 mg, Intramuscular, PRN, Manoj Morrison NP ??? heparin (porcine) injection 1,000 Units, 1,000 Units, Intracatheter, Once per day on Fri, Debi Wetzel RN, 1,000 Units at 05/20/19 1523 ??? heparin (porcine) injection 1,000 Units, 1,000 Units, Intracatheter, Once per day on Fri, Debi Wetzel RN, 1,000 Units at 05/20/19 1521 ??? heparin (porcine) injection 2,000 Units, 2,000 Units, Intravenous, During Dialysis, Debi Wetzel RN, 2,000 Units at 05/20/19 1130 ??? heparin (porcine) injection 4,300 Units, 4,300 Units, Intravenous, Once per day on Fri,Florencia Moulton MD, 4,300 Units at 05/20/19 1131 ? ? insulin lispro (HumaLOG) injection 0-6 Units, 0-6 Units, Subcutaneous, AC & HS, 2 Units at 05/16/19 1746 AND POCT glucose, , , AC & HS, Manoj Morrison NP ??? iron sucrose (VENOFER) injection 200 mg, 200 mg, Intravenous, During Dialysis, Carmen Donato MD, 200 mg at 05/20/19 1132 ??? lidocaine (LIDOCARE) 4 % patch 2 patch, 2 patch, Transdermal, Once a day, Manoj Morrison NP, 2 patch at 05/22/19 0823 ??? oxyCODONE-acetaminophen (PERCOCET) 5-325 MG 1 tablet, 1 tablet, Oral, Q6H PRN, Misty Hathaway MD, 1 tablet at 05/22/19 0739 ??? polyethylene glycol (MIRALAX) packet 17 g, 17 g, Oral, Daily PRN, Mike Zamora MD, 17 g at 05/19/19 0852 ??? tamsulosin (FLOMAX) 24 hr capsule 0.4 mg, 0.4 mg, Oral, Nightly, Misty Hathaway MD, 0.4 mg at 05/21/192024 PHYSICAL EXAM WEIGHTS 136 lb 1 oz (61.7 kg) ?? General appearance: awake, alert, cooperative, no distress HEENT: Normocephalic, No icterus, No oral lesions, [...] without mass, non-tender, with normal bowel sounds, External Genitalia not examined, groin Extremities: no clubbing, cyanosis or edema, no calf tenderness Musculoskeletal:no swelling of joints.no redness, FROM otherjoints Psychologic: Mood and affect appropriate, no suicidal ideation. Skin: No rash, swelling or erythema identified . Warm and Dry, R chest dialysis cath with tegaderm dressing clean dry and intact. Neurologic/WHITESMITH:Alert & oriented x 2 confused at times, poor historian, Speech normal, Tongue and uvula central Strength is 4/5 in all extremities ?? No clonus Gait not tested ? Please see height, weight, and BP reported elsewhere as part of this encounter ?? LABS CBC: Recent Labs Lab Units 05/18/19 1052 WBC X(10)9/L BLOOD x10E9/L 4.1* HGB GM/DL BLOOD gm/dL 8.1* PLT CT X(10)9/L BLOOD x10E9/L 275 MCV FL BLOOD fl 97.1 BMP: Recent Labs Lab Units 05/20/19 1016 SODIUM MMOL/L BLOOD mmol/L 137 POTASSIUM MMOL/L BLOOD mmol/L 5.6* CHLORIDE mmol/L 99 CO2 mmol/L 23 BUN MG/DL BLOOD mg/dL 55* CREATININE mg/dL 7.67* GLUCOSE MG/DL BLOOD mg/dL 105 CALCIUM MG/DL BLOOD mg/dL 8.6 DATA Vitals: 05/20/19 2106 05/21/19 0730 05/21/19204205/22/19 0720 BP: 103/63 110/64 116/62 127/65 Pulse: 99 79 90 80 Resp: 18 18 Temp: 98.5 ??F (36.9 ??C) 97.5 ??F (36.4 ??C) 98.9 ??F (37.2 ??C) 98.3 ??F (36.8 ??C) TempSrc: Oral Oral Oral Oral SpO2: 99% 97% 100% 99% Weight: 129 lb 6.4 oz (58.7 kg) 128 lb 4.8 oz (58.2 kg) Height: POC Glucose POC Glucose 05/21/19 2100 184 05/21/19 1704 112 05/21/19 1134 89 Weights (last 3 days) Date/Time Weight 05/21/192042 128 lb 4.8 oz (58.2 kg) 05/20/19 210 129 lb 6.4 oz (58.7 kg) 05/20/19 0555 130 lb 14.4 oz (59.4 kg) 05/19/19 0514 129 lb 11.2 oz (58.8 kg) @ANTICOAGSUMMARY@ @FLOWDATE(2706:LAST)@ Intake/Output Summary (Last 24 hours) at 05/22/2019 0958 Last data filed at 05/22/2019 0720 Gross per 24 hour Intake 600 ml Output 300 ml Net 300 ml IMAGING STUDIES & OTHER STUDIES ?? ASSESSMENT AND PLAN Principal Problem: Toxic metabolic encephalopathy Active Problems: Debility Anemia of chronic renal failure Chronic kidney disease, Stage V Essential hypertension Hyperkalemia Hypervolemia Malignant neoplasm of prostate Moderate malnutrition Other hyperlipidemia Retention of urine Diastolic dysfunction Seroma Abnormality of gait End stage renal failure on dialysis Hyperglycemia Debility Active Problems: Type 2 diabetes mellitus Anemia of chronic renal failure Chronic kidney disease, Stage V Essential hypertension Hyperkalemia Hypervolemia Malignant neoplasm of prostate Moderate malnutrition Other hyperlipidemia Retention of urine Diastolic dysfunction Seroma Abnormality of gait Toxic metabolic encephalopathy Acute renal failure, CKD LE edema ESRD,with volume overload, on dialysis now Renal consulted Echo done 04/29 Still on lasix 80 bid watch BP 05/[address] Donato, dialysis today 05/14 PVR 238-242-303 ml, continue with PVR another day. Weight 130 lb 05/15 bun 45 cr 6.77 05/18 bun 67, cr 7.31, on dialysis 05/19 ok to d/c PVRs Diastolic grade 1 heart failure Ef 60% per echo 04/29 Lasix, dialysis 05/14 weight 130 lb 05/16 wt 128 lb 05/20 wt 130 lb L thigh seroma Dopplers done 04/29 negative for dvt Hypertension,/ hypotension / bradycardia Continue meds 05/13 bp 103/61 on norvasc, tenormin , lasix 80 bid, lisinopril 5 DC norvasc - parameters added to bp meds Hold lisinopril x 2 days 05/14 Decrease lisinopril to 2.5. bp 108/60 DC atenolol HR 55-64 DC lisimopril 05/15 bp 90/51 05/16 bp 115/60, 102/63, 83/55, 127/83 hr 80-94 05/17 BP 114/64, stable at this time Hyperkalemia, related to the chronic kidney disease, on dialysis 05/13 k 3.6 05/15 k 4.4 05/18 K 4.6, stable at this time Hypocalcemia 05/15 ca 8.2 05/18 Ca 8.2, stable at this time Gout allopurinol Metabolic acidosis from the renal failure, better with dialysis Anemia, most recent hemoglobin 8.7, , monitor H/H 05/13 h and h 8.8/ 29.1 05/15 h and h 7.9/ 26.1 Vit b 12 349 Epoetin per renal and IV venofer 05/18 H&H 8.1/26.4, stable at this time Altered sugars aacu, SSI 05/13 poct 121 05/14 poct 119-135 05/15 Sugars 150-384-996-104 05/16 Sugars [phone] 05/17 bg 112-173, stable at this time 05/21 poct 109-133 ?? h/oProstate cancer Bladder management / hx of orchiectomy / urine retention in acutre Voiding ok Ditropan and flomax 05/13 had high volume PVR , dc ditropan. 05/16 PVR los volumes 122-159-0 ml last night 05/18 PVRs 127-234, will monitor 05/19 ok to d/c PVRs Dementia/ cognitive impairment aricept neuropsych consult DVT prophylaxis: on Lovenox Minh hose Echo 05/01/19: Mild concentric left ventricular hypertrophy. Impaired diastolic relaxation Grade I. Ejection fraction is visually estimated at 60 %. There is mild enlargement of left atrium. Mild aortic valve regurgitation. ?? Pain management Today's pain score 0 05/13 percocet 6 q 6 prn, tylenol Lidocaine patch and voltaren 05/18 denies pain ?? Bowel management . Titrate bowel medications for constipation/diarrhea. 05/13 had bm Skin care 05/22 bilateral heels boggy and discolored, podus boots ordered and applied. Wound care to see. ?? Full Resuscitation ? Electronically signed by: TTIA VARGAS ARNP, 05/22/2019 9:58 AM Cosigned by Misty Hathaway MD at 05/25/2019 12:19 AM GLOVE TAGGER Associated attestation - Misty Hathaway MD - 05/25/2019 1:19 AM EST The patient is being seen for follow-up of all current problems, BP, BS , HR, labs and strength. Follow up on pain, swallowing, bladder and bowel function. Strength improving, able to do therapy ok. I saw, evaluated and examined the patient face to face in conjunction with the CORK COMPOUNDER and agree with the management and disposition of the patient. History also obtained from Nurse and staff about how the patient did overnight and during the day. I performed mario portions of the follow up history, examination, review of labs and radiology and evaluation. I agree with the subjective, physical exam and assessment and plan details as outlined in the note below. Discussed the mario medical decision making- both assessment and plan, rehabilitation goals and treatment plan with patient, CORK COMPOUNDER , nursing staff, farm operator and the members of the team. * Florencia Moulton MD - 05/21/2019 8:09 PM CST Images from the original note were not included. Rehabilitation Physician Progress Note Late signing with access Patient Name: Jules Mitchell Age: 73 y.o. Patient's Primary Care Physician: Dr. Kwame Berg LOS: 10 DAYS This was a face to face visit with the patient Seen and examined today for rehab and medical issues related to debility with encephalopathy. CC I am walking better HPI and Interval history: Watching pvrs-dced ditropan Less than 300 cc Tolerating HD Blood sugars are below 150 PVRs remain below 300 cc Ambulating better Family teaching Tolerating dialysis Addressing PVRs BP low unclear if symptomatic Continues improved ambulation Improving mood Subjective Review of Systems Denies chest pain, dyspnea or nausea. PHYSICAL EXAM: (Retired) Vitals (last 3 days) Date/Time Temp Pulse Resp BP SpO2 Weight 05/21/19 0730 97.5 ??F (36.4 ??C) 79 18 110/64 97 % -- 05/20/19 2106 98.5 ??F (36.9 ??C) 99 18 103/63 99 % 129 lb 6.4 oz (58.7 kg) 05/20/19 1535 -- 99 -- (!) 158/89 -- -- 05/20/19 1534 -- 99 -- (!) 161/95 -- -- 05/20/19 1530 97.3 ??F (36.3 ??C) 99 18 (!) 173/108 -- -- 05/20/19 0851 96.4 ??F (35.8 ??C) 83 18 109/64 99 % -- 05/20/19 0555 -- -- -- -- -- 130 lb 14.4 oz (59.4 kg) 05/19/191999 99.3 ??F (37.4 ??C) 83 18 107/59 98 % -- 05/19/19 0730 97.7 ??F (36.5 ??C) 77 18 107/62 98 % -- 05/19/19 0514 -- -- -- -- -- 129 lb 11.2 oz (58.8 kg) 05/18/192052 99.1 ??F (37.3 ??C) 83 16 90/49 100 % -- 05/18/19 1748 -- -- -- 115/74 -- -- 05/18/19 0855 -- 67 -- 105/57 95 % -- 05/18/19 0700 97.2 ??F (36.2 ??C) 74 16 98/58 97 % -- 05/18/19 0555 -- -- -- -- -- 134 lb 6.4 oz (61 kg) Blood sugars: POC Glucose POC Glucose 05/21/19 1704 112 05/21/19 1134 89 05/21/19 0728 109 05/20/19 2108 122 Weights (last 3 days) Date/Time Weight 05/20/19 2106 129 lb 6.4 oz (58.7 kg) 05/20/19 0555 130 lb 14.4 oz (59.4 kg) 05/19/19 0514 129 lb 11.2 oz (58.8 kg) 05/18/19 0555 134 lb 6.4 oz (61 kg) GENERAL: Alert, in NAD HEENT: EOMI MMM NECK: no JVD LUNGS: Clear to auscultation CV: RR ABDOMEN: Soft NT to palpation EXTREMITIES: No edema SKIN: No new issues TONE: normal MUSCULOSKELETAL: UE without weakness RLE antigravity LLE with hip flexion, knee extension, ankle dorsiflexion-improved ROM and strength NEURO: No tremors PSYCH: SMILING Lab Data Reviewed current lab results available to me today. Lab Results Component Value Date WBC 4.1 (L) 05/18/2019 HGB 8.1 (L) 05/18/2019 HCT 26.4 (L) 05/18/2019 MCV 97.1 05/18/2019 PLT 275 05/18/2019 Lab Results Component Value Date GLUCOSE 105 05/20/2019 CALCIUM 8.6 05/20/2019 NA 137 05/20/2019 K 5.6 (H) 05/20/2019 CO2 23 05/20/2019 CL 99 05/20/2019 BUN 55 (H) 05/20/2019 CREATININE 7.67 (H) 05/20/2019 ANIONGAP 15 05/20/2019 Anemia leukopenia ESRD Imaging Reviewed current imaging results available to me today. No results found. Allergies No Known Allergies Medication List Scheduled/Continuous Medications Scheduled Medication Dose/Rate, Route, Frequency Last Action allopurinol (ZYLOPRIM) tablet 100 mg 100 mg, PO, Once a day Given: 05/21 08 atorvastatin (LIPITOR) tablet 20 mg 20 mg, PO, Once a day Given: 05/21 08 bisacodyl (DULCOLAX) suppository 10 mg 10 mg, RE, Once Ordered Diclofenac Sodium (VOLTAREN) 1 % gel 2 g 2 g, TOP, BID Given: 05/21 08 docusate sodium (COLACE) capsule 100 mg 100 mg, PO, Once a day Given: 05/21 08 donepezil (ARICEPT) tablet 10 mg 10 mg, PO, Nightly Given: 05/20 2106 epoetin ashly-epbx (RETACRIT) 4,000 Units 4,000 Units, SC, T--Sat w/Dialysis Given: 05/20 1126 folic acid (FOLVITE) tablet 1 mg 1 mg, PO, Once a day Given: 05/21 0853 furosemide (LASIX) tablet 80 mg 80 mg, PO, BID DIURETIC Given: 05/21 1621 heparin (porcine) injection 1,000 Units 1,000 Units, IK, 3x/week in HD Given by Other: 05/20 1523 heparin (porcine) injection 1,000 Units 1,000 Units, IK, 3x/week in HD Given by Other: 05/20 1521 heparin (porcine) injection 2,000 Units 2,000 Units, IV, During Dialysis Given: 05/20 1130 heparin (porcine) injection 4,300 Units 4,300 Units, IV, 3x/week in HD Given: 05/20 1131 insulin lispro (HumaLOG) injection 0-6 Units 2 Units, SC, AC & HS Given - Witness Not Required:05/16 174 iron sucrose (VENOFER) injection 200 mg 200 mg, IV, During Dialysis Given: 05/20 1132 lidocaine (LIDOCARE) 4 % patch 2 patch 2 patch, TD, Once a day Medication Applied: 05/21 853 tamsulosin (FLOMAX) 24 hr capsule 0.4 mg 0.4 mg, PO, Nightly Given: 05/20 2106 Current Functional Status reviewed today: Gait deviations include: decreased joao, decreased B step length and foot clearance, impaired heel-toe gait pattern, rounded shoulders, looking downward, increased B UE support on RW, shuffle gaitpattern, toe touch contact at initial contact, and impaired balance. ST Narrative:: Patient demonstrated decreased memory pertaining to safety precautions and reasoningrelated to using walker to transition out of/onto chair, and reaching for items on the floor. He stated the walker was used to help make sure I don't trip. Section GG CARE Scores Physical Therapy? Car Transfer Car Transfer - CARE Score: 3 (05/18/191548 : Kylie Sanchez PT) Walk 10 Feet Walk 10 Feet - CARE Score: 4 (05/18/191548 : Kylie Sanchez PT) Walk 50 Feet with Two Turns Walk 50 Feet with Two Turns - CARE Score: 4 (05/18/191548 : Kylie Sanchez PT) Walk 150 Feet Walk 150 Feet - CARE Score: 4 (05/18/191548 : Kylie Sanchez PT) Walking 10 Feet on Uneven Surfaces Walking 10 Feet on Uneven Surfaces - CARE Score: 4 (05/18/191548 : Kylie Sanchez PT) 1 Step (Curb) 1 Step (Curb) - CARE Score: 4 (05/18/191548 : Kylie Sanchez PT) 4 Steps 4 Steps - CARE Score: 4 (05/18/191548 : Kylie Sanchez PT) 12 Steps 12 Steps - CARE Score: 4 (05/18/191548 : Kylie Sanchez PT) Picking Up Object Picking Up Object - CARE Score: 4 (05/18/19 1549 : Kylie Sanchez, PT) Wheel 50 Feet with Two Turns Wheel 50 Feet with Two Turns - CARE Score: 3 (05/18/19 1549 : Kylie Sanchez, PT) Wheel 150 Feet Wheel 150 Feet - CARE Score: 2 (05/18/19 1549 : Kylie Sanchez PT) BARRIERS: Cognitive impairments anemia Assessment and Plan 1.Etiologic Diagnosis: Encephalopathy in setting of new renal failure-may have dementia-on aricept.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 Minimal assist required for expression and memory. Improved expression 2. Gait disorder multifactorial. Endurance training progressing well. Patient is ambulating with RW 3. ESRD: HD per dr donato 4. Urinary retention, resolved. Off ditropan, all PVR's below 300 cc. Continuing Flomax. 5. Osteoarthritis: Voltaren gel, prn oral analgesics. 6. Dyslipidemia: continuing statin. 7. History of gout: Allopurinol. No new joint complaints. Co-Morbidities that are continuing to impact the rehab process: Problem List: 2019-04: Hyperglycemia 2019-04: Retention of urine 2019-04: Diastolic dysfunction 2019-04: Seroma 2019-04: Abnormality of gait 2019-04: Toxic metabolic encephalopathy 2019-04: End stage renal failure on dialysis 2019-04: Debility 2019-04: Moderate malnutrition 2019-04: Anemia of chronic renal failure 2019-04: Chronic kidney disease, Stage V 2019-04: Essential hypertension 2019-04: Hyperkalemia 2019-04: Hypervolemia 2019-04: Malignant neoplasm of prostate 2019-04: Other hyperlipidemia 2019-04: Metabolic acidosis 2019-04: Latent autoimmune diabetes mellitus in adult Continue therapies. Continue inpatient comprehensive interdisciplinary rehabilitation to address strengthening, mobility skills, self care, cognitive functioning, speech, communication and swallowing needs. The patient continues to require the interdisciplinary team approach and 24 hour monitoring. ADDITIONAL INFORMATION: left leg previous injury, ?seroma asymptomatic EDUCATION/PT TEACHING: therapy goals EQUIPMENT: TBD WW DESTINATION: home CANDI: 05/28/2019 FOLLOW UP PLANS: FLORENCIA Larios MD 05/21/19 8:09 PM * Carmen Donato MD - 05/21/2019 4:11 PM CST Nephrology Progress Note Jules Mitchell [id number] Subjective: Patient seen and examined, denies fever, chills, chest pain, sob, cough, changes in appetite, N/V, diarrhea, abdominal pain, dysuria, hematuria, feeling stronger on rehab Objective: Vital signs: 05/17/191952 BP: 118/56 Pulse: 67 Resp: 16 Temp: 98.4 ??F (36.9 ??C) TempSrc: Oral SpO2: 100% Weight: Height: Physical Exam: General: awake and alert. In NAD Lungs: CTA B/L Heart: RRR, S1 and S2 without rubs Abdomen: Soft, NT/ND, + BS Ext: Without edema Labs: Recent Labs Lab Units 05/20/19 1016 05/18/19 1052 05/15/19 0659 SODIUM MMOL/L BLOOD mmol/L 137 134* 137 POTASSIUM MMOL/L BLOOD mmol/L 5.6* 4.6 4.4 CHLORIDE mmol/L 99 95* 96* CO2 mmol/L 23 25 30 BUN MG/DL BLOOD mg/dL 55* 67* 45* CREATININE mg/dL 7.67* 7.31* 6.77* GLUCOSE MG/DL BLOOD mg/dL 105 128* 131* CALCIUM MG/DL BLOOD mg/dL 8.6 8.2* 8.2* ANION GAP BLOOD mmol/L 15 14 11 Recent Labs Lab Units 05/20/19 1016 05/18/19 1052 05/15/19 0659 SODIUM MMOL/L BLOOD mmol/L 137 134* 137 POTASSIUM MMOL/L BLOOD mmol/L 5.6* 4.6 4.4 CHLORIDE mmol/L 99 95* 96* CO2 mmol/L 23 25 30 BUN MG/DL BLOOD mg/dL 55* 67* 45* CREATININE mg/dL 7.67* 7.31* 6.77* GLUCOSE MG/DL BLOOD mg/dL 105 128* 131* CALCIUM MG/DL BLOOD mg/dL 8.6 8.2* 8.2* Recent Labs Lab Units 05/20/19 1016 05/18/19 1052 05/15/19 0659 SODIUM MMOL/L BLOOD mmol/L 137 134* 137 POTASSIUM MMOL/L BLOOD mmol/L 5.6* 4.6 4.4 CHLORIDE mmol/L 99 95* 96* CO2 mmol/L 23 25 30 BUN MG/DL BLOOD mg/dL 55* 67* 45* CREATININE mg/dL 7.67* 7.31* 6.77* GLUCOSE MG/DL BLOOD mg/dL 105 128* 131* CALCIUM MG/DL BLOOD mg/dL 8.6 8.2* 8.2* Recent Labs Lab Units 05/18/19 1052 05/15/19 0659 WBC X(10)9/L BLOOD x10E9/L 4.1* 5.7 HGB GM/DL BLOOD gm/dL 8.1* 7.9* HCT % BLOOD % 26.4* 26.1* PLT CT X(10)9/L BLOOD x10E9/L 275 218 Assessment/ Plan: Principal Problem: Toxic metabolic encephalopathy Active Problems: Debility Anemia of chronic renal failure Chronic kidney disease, Stage V Essential hypertension Hyperkalemia Hypervolemia Malignant neoplasm of prostate Moderate malnutrition Other hyperlipidemia Retention of urine Diastolic dysfunction Seroma Abnormality of gait End stage renal failure on dialysis Hyperglycemia LOS: 10 days Assessment/Plan ESRD: next dialysis on tomorrow. HTN: reasonably controlled with dialysis Acute volume overload related to ESRD: compensated on dialysis and oral Lasix Anemia related to ESRD, iron deficiency: on iron replacment DM Left thigh seroma Hyperlipidemia:on statin Hyperkalemia from ESRD: on dialysis and this is better Generalized weakness from uremia: on rehab Metabolic acidosis: stable on dialysis Constipation: on bowel regimen Weakness: on rehab CARMEN DONATO MD * William Velázquez MD - 05/21/2019 11:14 AM CST Images from the original note were not included. HOSPITALIST PROGRESS NOTE Patient Name: Jules Mitchell : 1945 Medical Record: [id number] Admit date 05/11/19 DATE OF SERVICE 05/21/2019 ATTENDING PHYSICIAN Florencia Moulton MD ? CHIEF COMPLAINT Principal Problem: Debility Active Problems: Type 2 diabetes mellitus Anemia of chronic renal failure Chronic kidney disease, Stage V Essential hypertension Hyperkalemia Hypervolemia Malignant neoplasm of prostate Moderate malnutrition Other hyperlipidemia Retention of urine Diastolic dysfunction Seroma Abnormality of gait Toxic metabolic encephalopathy ? HISTORY OF PRESENT ILLNESS ?? The patient is a 73 y.o. y/o male with history of f prostate cancer, DM, and HTN [facility] intermittent left leg pain since last week. he has left sided buttock pain that radiates down posterior aspect of leg to knee. Hx coagulopathy, Hx venous thromboembolism. Pt was in acute renal failure with volume overload. Seen by renal , initiated dialysis , ?? currently here for therapy Todays chief Complains gen weakness Left leg pain ?? Confused about details of history ?? Duration of problems- Intensity Type Associated symptoms Aggrevating/relieving factors ? History also obtained from review of patients previous acute hospitalization chart, current rehabilitation chart , discussion with family members in the room and discussion with nursing staff taking care of the patient. ? SUBJECTIVE 05/13 initial progress note The patient is being seen for follow-up of all current problems, BP, BS , HR, labs and strength. Follow up on pain, swallowing, bladder and bowel function. Patient denies any chest pain, palpitations, shortness of breath, cough, abdominal pain, nausea, vomiting, diarrhea or constipation. No overnight events. Denies pain. Pain controlled on meds prescribed. Bowel movement 05/10. Lactulose ordered. Refused last night suppository. Had bm today 05/13 bp low bp 103/61 DC norvasc - hold lisinopril x 2 days Has 800 ml urine output with current urine agents- DC ditropan per PMR. Bladder scan [phone] ml had to be straight cath 800 ml out PVR 600 ml Due for dialysis today followed by Dr Donato Case discussed with Dr. Moulton, physiatry. Minh burns added Liver enzymes OK Seen by Neuropsych Appetite good and states slept well. Patient participating with therapy and is doing well. No further needs expressed at this time. 05/14 The patient is being seen for follow-up of all current problems, BP, BS , HR, labs and strength. Follow up on pain, swallowing, bladder and bowel function. Patient denies any chest pain, palpitations, shortness of breath, cough, abdominal pain, nausea, vomiting, diarrhea or constipation. No overnight events. 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 Pain controlled on meds prescribed. Bowel movement 05/13 x 2. Pt seen this am sitting up in chair working with Carlos wolf. Discussed pt with Carlos. Walking 100 ft with therapy, eager for exercises today. Requesting topical agent for L knee pain- voltaren gel ordered. Lidocaine patch for L thigh pain- edema improved. 1500 ml off with dialysis yesterday- tolerated. PVR 238-242-303 ml, continue with PVR another day. Weight 130 lb Sugars stable 119-135 Afebrile. HR 60s bp 119/60, 108/62. sats 100 % RA Atenolol held today. Decrease lisinopril to 2.5 Appetite good and states slept well. Patient participating with therapy and is doing well. No further needs expressed at this time. 05/15 The patient is being seen for follow-up of all current problems, BP, BS , HR, labs and strength. Follow up on pain, swallowing, bladder and bowel function. Patient denies any chest pain, palpitations, shortness of breath, cough, abdominal pain, nausea, vomiting, diarrhea or constipation. No overnight events. Denies pain. Pain controlled on meds prescribed. Pain better with lidocaine and voltaren gel. Bowel movement 05/13 bp soft this am- hold atenolol x 2 days Hold lasix and lisonopril DC atenolol- feels dizzy with therapy Notified Bandar Donato. Dc lisinopril, wants to continue lasix BID pvr 278 ml, 330-224. Has x 1 straigh cath last night with 300 ml out urine. No weight recorded this am Sugars [phone]- Dialysis today, BP still soft 90/51, HR 57-64. Holding atenolol x 2 days and held lasix and lisinopril this am. PVR 278 ml 330-224, was cath x 1 today with 300 ml out Appetite good and states slept well. Patient participating with therapy and is doing well. No further needs expressed at this time. BP low still down to 80s On dialysis Called and D/W Dr Donato - continue lasix Since pt having good urine out put ?? DC Lisinopril AND CHIVO I 05/16 The patient is being seen for follow-up of all current problems, BP, BS , HR, labs and strength. Follow up on pain, swallowing, bladder and bowel function. Patient denies any chest pain, palpitations, shortness of breath, cough, abdominal pain, nausea, vomiting, diarrhea or constipation. No overnight events. Denies pain. Pain controlled on meds prescribed. Bowel movement today. Pain better with patch. Has not taken percocet since 05/13 Afebrile. HR 90s-80 bp 102/63 sats 98% RA. Still off most BP meds-monitor. 2000 ml off with dialysis. PVR 122-159-0 ml. [place] stable 128 lb. Pt seen sitting up in chair watching tv, L thigh edema down. Sugars [phone] Labs done 05/15. Appetite good and states slept well. Patient participating with therapy and is doing well. No further needs expressed at this time. 05/17 Patient seen and evaluated on daily rounds. No overnight events reported. Patient has been participating with therapy and is doing well. Pt seen today sitting up in wheelchair. Pt denies pain at thistime, well controlled with current medications. Slept well and appetite good. Last BM yesterday, noissues. Voiding well. Continue dialysis. Patient denies any chest pain, palpitations, shortness of breath, cough, abdominal pain, nausea and vomiting, or constipation. BP 114/64 without BP meds, HR 64. BG stable. No other needs or concerns expressed at this time. 05/18 Patient seen and evaluated on daily rounds. No overnight events reported. Patient has been participating with therapy and is doing well. Pt seen today sitting up in wheelchair. Pt denies pain at thistime, not requiring pain medications. Slept okay and appetite good. Last BM today, no issues. Voiding well. PVRs 127-234 ml. Patient denies any chest pain, palpitations, shortness of breath, cough, abdominal pain, nausea and vomiting, or constipation. BP 105/57, HR 67. BG stable. Anticipate dialysis with labs today. No other needs or concerns expressed at this time. 05/19 Patient seen and evaluated on daily rounds. No overnight events reported. Patient has been participating with therapy and is doing well. Pt seen today sitting up in wheelchair. Pt denies pain at thistime, well controlled with current medications. Slept off and on and appetite good. Last BM today, no issues. Voiding well. PVR 190-195. Patient denies any chest pain, palpitations, shortness of breath, cough, abdominal pain, nausea and vomiting, or constipation. BP 90/49, HR 83. BG stable. Labs obtained yesterday, reviewed. No other needs or concerns expressed at this time. 05/20 Patient seen and evaluated on daily rounds. No overnight events reported. Patient has been participating with therapy and is doing well. Pt seen today sitting up in wheelchair. Pt reports he was sorewith therapy, but denies pain at this time, well controlled with current medications. Slept well and appetite good, but his uneaten breakfast tray was taken while he was in therapy. Last BM yesterday, no issues. Voiding well. Dialysis today. Patient denies any chest pain, palpitations, shortness ofbreath, cough, abdominal pain, nausea and vomiting, or constipation. BP 109/64, HR 83. Labs to be obtained today with dialysis. BG stable. No other needs or concerns expressed at this time. 05/21 Patient seen and evaluated on daily rounds. No overnight events reported. Patient has been participating with therapy and is doing well. Pt seen today sitting up in wheelchair. Pt denies pain at thistime, well controlled with current medications. Slept well and appetite good. Last BM yesterday, noissues. Voiding well. Patient denies any chest pain, palpitations, shortness of breath, cough, abdominal pain, nausea and vomiting, or constipation. BP 110/64, HR 79. BG stable. No other needs or concerns expressed at this time. CURRENT MEDICATIONS Current Facility-Administered Medications: ??? acetaminophen (TYLENOL) tablet 325 mg, 325 mg, PO/Per Tube, Q6H PRN, Misty Hathaway MD, 325 mgat 05/11/19 2321 ??? allopurinol (ZYLOPRIM) tablet 100 mg, 100 mg, Oral, Once a day, Misty Hathaway MD, 100 mg at 05/21/19 0853 ??? atorvastatin (LIPITOR) tablet 20 mg, 20 mg, Oral, Once a day, Misty Hathaway MD, 20 mg at 05/21/19 0853 ??? bisacodyl (DULCOLAX) suppository 10 mg, 10 mg, Rectal, Once, Manoj Morrison NP ??? dextrose (GLUTOSE) 40 % oral gel 15 g, 15 g, Oral, PRN, Manoj Morrison, [employer] ??? dextrose 5 % and sodium chloride 0.45 % infusion, 50 mL/hr, Intravenous, PRN, Manoj Morrison, [employer] ??? dextrose 50 % IV solution 25 g, 25 g, Intravenous, PRN, Manoj Morrison, [employer] ??? Diclofenac Sodium (VOLTAREN) 1 % gel 2 g, 2 g, Topical, 2 times per day, Manoj Morrison NP, 2 g at 05/21/19 0855 ??? docusate sodium (COLACE) capsule 100 mg, 100 mg, Oral, Once a day, Misty Hathaway MD, 100 mg at 05/21/19 0854 ??? donepezil (ARICEPT) tablet 10 mg, 10 mg, Oral, Nightly, Misty Hathaway MD, 10 mg at 05/20/19 2107 ??? epoetin ashly-epbx (RETACRIT) 4,000 Units, 4,000 Units, Subcutaneous, w/Dialysis, Froy Donato MD, 4,000 Units at 05/20/19 1126 ??? folic acid (FOLVITE) tablet 1 mg, 1 mg, Oral, Once a day, Misty Hathaway MD, 1 mg at 05/21/19 0853 ??? furosemide (LASIX) tablet 80 mg, 80 mg, Oral, BID DIURETIC, ALEIDA Phan, 80 mg at 05/21/19 0853 ??? glucagon (human recombinant) injection 1 mg, 1 mg, Intramuscular, PRN, Manoj Morrison, [employer] ??? heparin (porcine) injection 1,000 Units, 1,000 Units, Intracatheter, Once per day on Fri Sat, Debi Wetzel RN, 1,000 Units at 05/20/19 1523 ??? heparin (porcine) injection 1,000 Units, 1,000 Units, Intracatheter, Once per day on Fri Sat, Debi Wetzel RN, 1,000 Units at 05/20/19 1521 ??? heparin (porcine) injection 2,000 Units, 2,000 Units, Intravenous, During Dialysis, Debi Wetzel RN, 2,000 Units at 05/20/19 1130 ??? heparin (porcine) injection 4,300 Units, 4,300 Units, Intravenous, Once per day on Fri,Florencia Moulton MD, 4,300 Units at 05/20/19 1131 ? ? insulin lispro (HumaLOG) injection 0-6 Units, 0-6 Units, Subcutaneous, AC & HS, 2 Units at 05/16/19 1746 AND POCT glucose, , , AC & HS, Manoj Morrison NP ??? iron sucrose (VENOFER) injection 200 mg, 200 mg, Intravenous, During Dialysis, Carmen Donato MD, 200 mg at 05/20/19 1132 ??? lidocaine (LIDOCARE) 4 % patch 2 patch, 2 patch, Transdermal, Once a day, Manoj Morrison NP, 2 patch at 05/21/19 0854 ??? oxyCODONE-acetaminophen (PERCOCET) 5-325 MG 1 tablet, 1 tablet, Oral, Q6H PRN, Misty Hathaway MD, 1 tablet at 05/20/19 1503 ??? polyethylene glycol (MIRALAX) packet 17 g, 17 g, Oral, Daily PRN, Mike Zamora MD, 17 g at 05/19/19 0852 ??? tamsulosin (FLOMAX) 24 hr capsule 0.4 mg, 0.4 mg, Oral, Nightly, Misty Hathaway MD, 0.4 mg at 05/20/19 2107 PHYSICAL EXAM WEIGHTS 136 lb 1 oz (61.7 kg) ?? General appearance: awake, alert, cooperative, no distress HEENT: Normocephalic, No icterus, Eyes: EOMI, Conjunctiva normal, No discharge Cardiovascular: s1-s2 audible, Normal heart rate, Normal rhythm, Respiratory: Normal breath sounds, No respiratory distress, No wheezing, GI: Bowel sounds normal, Soft, No tenderness, No rebound or guarding, No masses. Abdomen: soft without mass, non-tender, with normal bowel sounds Extremities: no clubbing, cyanosis or edema, no calf tenderness Musculoskeletal:no swelling of joints.no redness, FROM otherjoints Psychologic: Mood and affect appropriate, no suicidal ideation. Skin: No rash, swelling or erythema identified , R chest dialysis cath with tegaderm dressing cleandry and intact. Neurologic/WHITESMITH:Alert & oriented x 2 confused at times, poor historian, Speech normal, LABS CBC: Recent Labs Lab Units 05/18/19 1052 WBC X(10)9/L BLOOD x10E9/L 4.1* HGB GM/DL BLOOD gm/dL 8.1* PLT CT X(10)9/L BLOOD x10E9/L 275 MCV FL BLOOD fl 97.1 BMP: Recent Labs Lab Units 05/20/19 1016 SODIUM MMOL/L BLOOD mmol/L 137 POTASSIUM MMOL/L BLOOD mmol/L 5.6* CHLORIDE mmol/L 99 CO2 mmol/L 23 BUN MG/DL BLOOD mg/dL 55* CREATININE mg/dL 7.67* GLUCOSE MG/DL BLOOD mg/dL 105 CALCIUM MG/DL BLOOD mg/dL 8.6 DATA Vitals: 05/20/19 1534 05/20/19 1535 05/20/19 2106 05/21/19 0730 BP: (!) 161/95 (!) 158/89 103/63 110/64 Pulse: 99 99 99 79 Resp: 18 18 Temp: 98.5 ??F (36.9 ??C) 97.5 ??F (36.4 ??C) TempSrc: Oral Oral SpO2: 99% 97% Weight: 129 lb 6.4 oz (58.7 kg) Height: POC Glucose POC Glucose 05/21/19 0728 109 05/20/19 2108 122 05/20/19 1656 133 Weights (last 3 days) Date/Time Weight 05/20/19 210 129 lb 6.4 oz (58.7 kg) 05/20/19 0555 130 lb 14.4 oz (59.4 kg) 05/19/19 0514 129 lb 11.2 oz (58.8 kg) 05/18/19 0555 134 lb 6.4 oz (61 kg) @ANTICOAGSUMMARY@ @FLOWDATE(2706:LAST)@ Intake/Output Summary (Last 24 hours) at 05/21/2019 1114 Last data filed at 05/21/2019 0730 Gross per 24 hour Intake 240 ml Output -- Net 240 ml IMAGING STUDIES & OTHER STUDIES ?? ASSESSMENT AND PLAN Principal Problem: Toxic metabolic encephalopathy Active Problems: Debility Anemia of chronic renal failure Chronic kidney disease, Stage V Essential hypertension Hyperkalemia Hypervolemia Malignant neoplasm of prostate Moderate malnutrition Other hyperlipidemia Retention of urine Diastolic dysfunction Seroma Abnormality of gait End stage renal failure on dialysis Hyperglycemia Debility Active Problems: Type 2 diabetes mellitus Anemia of chronic renal failure Chronic kidney disease, Stage V Essential hypertension Hyperkalemia Hypervolemia Malignant neoplasm of prostate Moderate malnutrition Other hyperlipidemia Retention of urine Diastolic dysfunction Seroma Abnormality of gait Toxic metabolic encephalopathy Acute renal failure, CKD LE edema ESRD,with volume overload, on dialysis now Renal consulted Echo done 04/29 Still on lasix 80 bid watch BP 05/[address] Donato, dialysis today 05/14 PVR 238-242-303 ml, continue with PVR another day. Weight 130 lb 05/15 bun 45 cr 6.77 05/18 bun 67, cr 7.31, on dialysis 05/19 ok to d/c PVRs Diastolic grade 1 heart failure Ef 60% per echo 04/29 Lasix, dialysis 05/14 weight 130 lb 05/16 wt 128 lb 05/20 wt 130 lb L thigh seroma Dopplers done 04/29 negative for dvt Hypertension,/ hypotension / bradycardia Continue meds 05/13 bp 103/61 on norvasc, tenormin , lasix 80 bid, lisinopril 5 DC norvasc - parameters added to bp meds Hold lisinopril x 2 days 05/14 Decrease lisinopril to 2.5. bp 108/60 DC atenolol HR 55-64 DC lisimopril 05/15 bp 90/51 05/16 bp 115/60, 102/63, 83/55, 127/83 hr 80-94 05/17 BP 114/64, stable at this time Hyperkalemia, related to the chronic kidney disease, on dialysis 05/13 k 3.6 05/15 k 4.4 05/18 K 4.6, stable at this time Hypocalcemia 05/15 ca 8.2 05/18 Ca 8.2, stable at this time Gout allopurinol Metabolic acidosis from the renal failure, better with dialysis Anemia, most recent hemoglobin 8.7, , monitor H/H 05/13 h and h 8.8/ 29.1 05/15 h and h 7.9/ 26.1 Vit b 12 349 Epoetin per renal and IV venofer 05/18 H&H 8.1/26.4, stable at this time Altered sugars aacu, SSI 05/13 poct 121 05/14 poct 119-135 05/15 Sugars [phone] 05/16 Sugars [phone] 05/17 bg 112-173, stable at this time 05/21 poct 109-133 ?? h/oProstate cancer Bladder management / hx of orchiectomy / urine retention in acutre Voiding ok Ditropan and flomax 05/13 had high volume PVR , dc ditropan. 05/16 PVR los volumes 122-159-0 ml last night 05/18 PVRs 127-234, will monitor 05/19 ok to d/c PVRs Dementia/ cognitive impairment aricept neuropsych consult DVT prophylaxis: on Lovenox Minh hose Echo 05/01/19: Mild concentric left ventricular hypertrophy. Impaired diastolic relaxation Grade I. Ejection fraction is visually estimated at 60 %. There is mild enlargement of left atrium. Mild aortic valve regurgitation. ?? Pain management Today's pain score 0 05/13 percocet 6 q 6 prn, tylenol Lidocaine patch and voltaren 05/18 denies pain ?? Bowel management . Titrate bowel medications for constipation/diarrhea. 05/13 had bm ?? Full Resuscitation ?? Electronically signed by: TITA VARGAS ARNP, 05/21/2019 11:14 AM Patient seen and evaluated on daily rounds alongside Tita Vargas [employer] I agree with the above subjective, objective and assessment and plan details as outlined in the note. I reviewed new patient data and discussed mario medical aspects of the patients care with the team. Icompleted mario portions of the history, exam, and medical decision making respectively. Additional Comments: Patient is ESRD on HD, BP has been normotensive, agents have been adjusted, will continue to monitor closely William Velázquez MD * Florencia Moulton MD - 05/20/2019 11:45 PM CST Images from the original note were not included. Rehabilitation Physician Progress Note Patient Name: Jules Mitchell Age: 73 y.o. Patient's Primary Care Physician: Dr. wKame Berg LOS: 9 DAYS This was a face to face visit with the patient Seen and examined today for rehab and medical issues related to debility with encephalopathy. CC No answer HPI and Interval history: Watching pvrs-dced ditropan Less than 300 cc Tolerating HD Blood sugars are below 150 PVRs remain below 300 cc Ambulating better Family teaching Tolerating dialysis Addressing PVRs BP low unclear if symptomatic Subjective Review of Systems Denies chest pain, dyspnea or nausea. PHYSICAL EXAM: (Retired) Vitals (last 3 days) Date/Time Temp Pulse Resp BP SpO2 Weight 05/20/19 2106 98.5 ??F (36.9 ??C) 99 18 103/63 99 % -- 05/20/19 1535 -- 99 -- (!) 158/89 -- -- 05/20/19 1534 -- 99 -- (!) 161/95 -- -- 05/20/19 1530 97.3 ??F (36.3 ??C) 99 18 (!) 173/108 -- -- 05/20/19 0851 96.4 ??F (35.8 ??C) 83 18 109/64 99 % -- 05/20/19 0555 -- -- -- -- -- 130 lb 14.4 oz (59.4 kg) 05/19/191999 99.3 ??F (37.4 ??C) 83 18 107/59 98 % -- 05/19/19 0730 97.7 ??F (36.5 ??C) 77 18 107/62 98 % -- 05/19/19 0514 -- -- -- -- -- 129 lb 11.2 oz (58.8 kg) 05/18/192052 99.1 ??F (37.3 ??C) 83 16 90/49 100 % -- 05/18/19 1748 -- -- -- 115/74 -- -- 05/18/19 0855 -- 67 -- 105/57 95 % -- 05/18/19 0700 97.2 ??F (36.2 ??C) 74 16 98/58 97 % -- 05/18/19 0555 -- -- -- -- -- 134 lb 6.4 oz (61 kg) 05/17/19 1953 98.4 ??F (36.9 ??C) 67 16 118/56 100 % -- 05/17/19 0700 97 ??F (36.1 ??C) 64 18 114/64 100 % -- 05/17/19 0424 -- -- -- -- -- 129 lb 12.8 oz (58.9 kg) Blood sugars: POC Glucose POC Glucose 05/20/19 2108 122 05/20/19 1656 133 05/20/19 1100 109 05/20/19 0658 124 Weights (last 3 days) Date/Time Weight 05/20/19 0555 130 lb 14.4 oz (59.4 kg) 05/19/19 0514 129 lb 11.2 oz (58.8 kg) 05/18/19 0555 134 lb 6.4 oz (61 kg) 05/17/194 129 lb 12.8 oz (58.9 kg) GENERAL: Alert, in NAD HEENT: EOMI MMM NECK: no JVD LUNGS: Clear to auscultation CV: RR ABDOMEN: Soft NT to palpation EXTREMITIES: No edema SKIN: No new issues TONE: normal MUSCULOSKELETAL: UE without weakness RLE antigravity LLE with hip flexion, knee extension, ankle dorsiflexion-less pain NEURO: No tremors PSYCH: decreased affect Lab Data Reviewed current lab results available to me today. Lab Results Component Value Date WBC 4.1 (L) 05/18/2019 HGB 8.1 (L) 05/18/2019 HCT 26.4 (L) 05/18/2019 MCV 97.1 05/18/2019 PLT 275 05/18/2019 Lab Results Component Value Date GLUCOSE 105 05/20/2019 CALCIUM 8.6 05/20/2019 NA 137 05/20/2019 K 5.6 (H) 05/20/2019 CO2 23 05/20/2019 CL 99 05/20/2019 BUN 55 (H) 05/20/2019 CREATININE 7.67 (H) 05/20/2019 ANIONGAP 15 05/20/2019 Anemia leukopenia ESRD Imaging Reviewed current imaging results available to me today. No results found. Allergies No Known Allergies Medication List Scheduled/Continuous Medications Scheduled Medication Dose/Rate, Route, Frequency Last Action allopurinol (ZYLOPRIM) tablet 100 mg 100 mg, PO, Once a day Given: 05/20 814 atorvastatin (LIPITOR) tablet 20 mg 20 mg, PO, Once a day Given: 05/20 813 bisacodyl (DULCOLAX) suppository 10 mg 10 mg, RE, Once Ordered Diclofenac Sodium (VOLTAREN) 1 % gel 2 g 2 g, TOP, BID Given: 05/20 2108 docusate sodium (COLACE) capsule 100 mg 100 mg, PO, Once a day Given: 05/20 814 donepezil (ARICEPT) tablet 10 mg 10 mg, PO, Nightly Given: 05/20 2106 epoetin ashly-epbx (RETACRIT) 4,000 Units 4,000 Units, SC, T-Th-Sat w/Dialysis Given: 05/20 112 folic acid (FOLVITE) tablet 1 mg 1 mg, PO, Once a day Given: 05/20 814 furosemide (LASIX) tablet 80 mg 80 mg, PO, BID DIURETIC Given: 05/20 1604 heparin (porcine) injection 1,000 Units 1,000 Units, IK, 3x/week in HD Given by Other: 05/20 1523 heparin (porcine) injection 1,000 Units 1,000 Units, IK, 3x/week in HD Given by Other: 05/20 1521 heparin (porcine) injection 2,000 Units 2,000 Units, IV, During Dialysis Given: 05/20 1130 heparin (porcine) injection 4,300 Units 4,300 Units, IV, 3x/week in HD Given: 05/20 113 insulin lispro (HumaLOG) injection 0-6 Units 2 Units, SC, AC & HS Given - Witness Not Required:05/16 1746 iron sucrose (VENOFER) injection 200 mg 200 mg, IV, During Dialysis Given: 05/20 113 lidocaine (LIDOCARE) 4 % patch 2 patch 2 patch, TD, Once a day Medication Applied: 05/20 812 tamsulosin (FLOMAX) 24 hr capsule 0.4 mg 0.4 mg, PO, Nightly Given: 05/20 2106 Current Functional Status reviewed today: Gait Analysis: 1 x 141' with RW and varying consistent close supervision throughout ambulation (emerging distant supervision intermittently). Pt cued prior to ambulation for focus on upright posture and maintaining appropriate distance from DEONNA to RW. Pt demonstrates slightly improved upright posture, however with increased distance and fatigue, pt requires increased cues for maintaining appropriate distance to RW. Seated rest break upon completion. Rails: Bilateral Stairs Level of Assistance: Close Supervision and Contact Guard Stairs Height of Step: 6-inch Stair Analysis: Up/down 1 x 8 steps at 6 inches each and close supervision throughout up/down when leading up with R LE (anterior approach) and down with L LE (posterior approach). Pt then changes technique to leading up with L LE first (anterior approach) and CGA and down with anterior approach leading down with L LE and CGA. Seated rest break upon completion due to increased fatigue. Section GG CARE Scores Physical Therapy? Car Transfer Car Transfer - CARE Score: 3 (05/18/191548 : Kylie Sanchez PT) Walk 10 Feet Walk 10 Feet - CARE Score: 4 (05/18/191548 : Kylie Sanchez PT) Walk 50 Feet with Two Turns Walk 50 Feet with Two Turns - CARE Score: 4 (05/18/191548 : Kylie Sanchez PT) Walk 150 Feet Walk 150 Feet - CARE Score: 4 (05/18/191548 : Kylie Sanchez PT) Walking 10 Feet on Uneven Surfaces Walking 10 Feet on Uneven Surfaces - CARE Score: 4 (05/18/191548 : Kylie Sanchez, PT) 1 Step (Curb) 1 Step (Curb) - CARE Score: 4 (05/18/191548 : Kylie Sanchez PT) 4 Steps 4 Steps - CARE Score: 4 (05/18/191548 : Kylie Sanchez PT) 12 Steps 12 Steps - CARE Score: 4 (05/18/191548 : Kylie Sanchez PT) Picking Up Object Picking Up Object - CARE Score: 4 (05/18/191548 : Kylie Sanchez PT) Wheel 50 Feet with Two Turns Wheel 50 Feet with Two Turns - CARE Score: 3 (05/18/191548 : Kylie Sanchez PT) Wheel 150 Feet Wheel 150 Feet - CARE Score: 2 (05/18/191548 : Kylie Sanchez PT) BARRIERS: Cognitive impairments anemia Assessment and Plan 1.Etiologic Diagnosis: Encephalopathy in setting of new renal failure-may have dementia-on aricept.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 Minimal assist required for expression and memory. 2. Gait disorder multifactorial. Endurance training progressing well. Patient is ambulating with RW 3. ESRD: HD per dr donato 4. Urinary retention, resolved. Off ditropan, all PVR's below 300 cc. Continuing Flomax. 5. Osteoarthritis: Voltaren gel, prn oral analgesics. 6. Dyslipidemia: continuing statin. 7. History of gout: Allopurinol. No new joint complaints. Co-Morbidities that are continuing to impact the rehab process: Problem List: 2019-04: Hyperglycemia 2019-04: Retention of urine 2019-04: Diastolic dysfunction 2019-04: Seroma 2019-04: Abnormality of gait 2019-04: Toxic metabolic encephalopathy 2019-04: End stage renal failure on dialysis 2019-04: Debility 2019-04: Moderate malnutrition 2019-04: Anemia of chronic renal failure 2019-04: Chronic kidney disease, Stage V 2019-04: Essential hypertension 2019-04: Hyperkalemia 2019-04: Hypervolemia 2019-04: Malignant neoplasm of prostate 2019-04: Other hyperlipidemia 2019-04: Metabolic acidosis 2019-04: Latent autoimmune diabetes mellitus in adult Continue therapies. Continue inpatient comprehensive interdisciplinary rehabilitation to address strengthening, mobility skills, self care, cognitive functioning, speech, communication and swallowing needs. The patient continues to require the interdisciplinary team approach and 24 hour monitoring. ADDITIONAL INFORMATION: left leg previous injury, ?seroma asymptomatic EDUCATION/PT TEACHING: therapy goals EQUIPMENT: TBD WW DESTINATION: home CANDI: 05/28/2019 FOLLOW UP PLANS: FLORENCIA Larios MD 05/20/19 11:45 PM * Katya Ennis, PhD - 05/20/2019 4:14 PM CST PSYCHOLOGY PROGRESS NOTE SUBJECTIVE: Mr. Mitchell's perception of rehabilitation progress/specific concerns: pleased with rehabilitation progress Pt said therapy has been pretty good... making a whole lot of improvements. He stated that he hasbeen working on getting out of here. Pain: does not report any pain at this time - recently took medication for leg pain Mood: good OBJECTIVE: Behavior and Appearance: alert and cooperative Orientation: impaired to time Speech and Communication: dysarthric Affective Quality: calm Interactions: receptive to psychological support ASSESSMENT: Cognitive Function: Mr. Mitchell demonstrated continued impairment in orientation and new learning/recent memory Adjustment: Mr. Mitchell demonstrated generally effective coping/adaptation Therapy Participation: Good PLAN: Interventions: patient gains were reviewed continued efforts in rehab were encouraged discussed with physician KATYA ENNIS, PhD 05/20/2019 4:14 PM * ALEIDA Phan - 05/20/2019 10:52 AM CST Images from the original note were not included. HOSPITALIST PROGRESS NOTE Patient Name: Jules Mitchell : 1945 Medical Record: [id number] Admit date 05/11/19 DATE OF SERVICE 05/20/2019 ATTENDING PHYSICIAN Florencia Moulton MD ? CHIEF COMPLAINT Principal Problem: Debility Active Problems: Type 2 diabetes mellitus Anemia of chronic renal failure Chronic kidney disease, Stage V Essential hypertension Hyperkalemia Hypervolemia Malignant neoplasm of prostate Moderate malnutrition Other hyperlipidemia Retention of urine Diastolic dysfunction Seroma Abnormality of gait Toxic metabolic encephalopathy ? HISTORY OF PRESENT ILLNESS ?? The patient is a 73 y.o. y/o male with history of f prostate cancer, DM, and HTN presents to the [facility] of intermittent left leg pain since last week. he has left sided buttock pain that radiates down posterior aspect of leg to knee. Hx coagulopathy, Hx venous thromboembolism. Pt was in acute renal failure with volume overload. Seen by renal , initiated dialysis , ?? currently here for therapy Todays chief Complains gen weakness Left leg pain ?? Confused about details of history ?? Duration of problems- Intensity Type Associated symptoms Aggrevating/relieving factors ? History also obtained from review of patients previous acute hospitalization chart, current rehabilitation chart , discussion with family members in the room and discussion with nursing staff taking care of the patient. ? SUBJECTIVE 05/13 initial progress note The patient is being seen for follow-up of all current problems, BP, BS , HR, labs and strength. Follow up on pain, swallowing, bladder and bowel function. Patient denies any chest pain, palpitations, shortness of breath, cough, abdominal pain, nausea, vomiting, diarrhea or constipation. No overnight events. Denies pain. Pain controlled on meds prescribed. Bowel movement 05/10. Lactulose ordered. Refused last night suppository. Had bm today 05/13 bp low bp 103/61 DC norvasc - hold lisinopril x 2 days Has 800 ml urine output with current urine agents- DC ditropan per PMR. Bladder scan [phone] ml had to be straight cath 800 ml out PVR 600 ml Due for dialysis today followed by Dr Donato Case discussed with Dr. Moulton, physiatry. Minh burns added Liver enzymes OK Seen by Neuropsych Appetite good and states slept well. Patient participating with therapy and is doing well. No further needs expressed at this time. 05/14 The patient is being seen for follow-up of all current problems, BP, BS , HR, labs and strength. Follow up on pain, swallowing, bladder and bowel function. Patient denies any chest pain, palpitations, shortness of breath, cough, abdominal pain, nausea, vomiting, diarrhea or constipation. No overnight events. 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 Pain controlled on meds prescribed. Bowel movement 05/13 x 2. Pt seen this am sitting up in chair working with [employer]. Discussed pt with Carlos. Walking 100 ft with therapy, eager for exercises today. Requesting topical agent for L knee pain- voltaren gel ordered. Lidocaine patch for L thigh pain- edema improved. 1500 ml off with dialysis yesterday- tolerated. PVR 238-242-303 ml, continue with PVR another day. Weight 130 lb Sugars stable 119-135 Afebrile. HR 60s bp 119/60, 108/62. sats 100 % RA Atenolol held today. Decrease lisinopril to 2.5 Appetite good and states slept well. Patient participating with therapy and is doing well. No further needs expressed at this time. 05/15 The patient is being seen for follow-up of all current problems, BP, BS , HR, labs and strength. Follow up on pain, swallowing, bladder and bowel function. Patient denies any chest pain, palpitations, shortness of breath, cough, abdominal pain, nausea, vomiting, diarrhea or constipation. No overnight events. Denies pain. Pain controlled on meds prescribed. Pain better with lidocaine and voltaren gel. Bowel movement 05/13 bp soft this am- hold atenolol x 2 days Hold lasix and lisonopril DC atenolol- feels dizzy with therapy Notified Bandar Donato. Dc lisinopril, wants to continue lasix BID pvr 278 ml, 330-224. Has x 1 straigh cath last night with 300 ml out urine. No weight recorded this am Sugars [phone]- Dialysis today, BP still soft 90/51, HR 57-64. Holding atenolol x 2 days and held lasix and lisinopril this am. PVR 278 ml 330-224, was cath x 1 today with 300 ml out Appetite good and states slept well. Patient participating with therapy and is doing well. No further needs expressed at this time. BP low still down to 80s On dialysis Called and D/W Dr Donato - continue lasix Since pt having good urine out put ?? DC Lisinopril AND CHIVO I 05/16 The patient is being seen for follow-up of all current problems, BP, BS , HR, labs and strength. Follow up on pain, swallowing, bladder and bowel function. Patient denies any chest pain, palpitations, shortness of breath, cough, abdominal pain, nausea, vomiting, diarrhea or constipation. No overnight events. Denies pain. Pain controlled on meds prescribed. Bowel movement today. Pain better with patch. Has not taken percocet since 05/13 Afebrile. HR 90s-80 bp 102/63 sats 98% RA. Still off most BP meds-monitor. 2000 ml off with dialysis. PVR 122-159-0 ml. [place]th stable 128 lb. Pt seen sitting up in chair watching tv, L thigh edema down. Sugars [phone] Labs done 05/15. Appetite good and states slept well. Patient participating with therapy and is doing well. No further needs expressed at this time. 05/17 Patient seen and evaluated on daily rounds. No overnight events reported. Patient has been participating with therapy and is doing well. Pt seen today sitting up in wheelchair. Pt denies pain at thistime, well controlled with current medications. Slept well and appetite good. Last BM yesterday, noissues. Voiding well. Continue dialysis. Patient denies any chest pain, palpitations, shortness of breath, cough, abdominal pain, nausea and vomiting, or constipation. BP 114/64 without BP meds, HR 64. BG stable. No other needs or concerns expressed at this time. 05/18 Patient seen and evaluated on daily rounds. No overnight events reported. Patient has been participating with therapy and is doing well. Pt seen today sitting up in wheelchair. Pt denies pain at thistime, not requiring pain medications. Slept okay and appetite good. Last BM today, no issues. Voiding well. PVRs 127-234 ml. Patient denies any chest pain, palpitations, shortness of breath, cough, abdominal pain, nausea and vomiting, or constipation. BP 105/57, HR 67. BG stable. Anticipate dialysis with labs today. No other needs or concerns expressed at this time. 05/19 Patient seen and evaluated on daily rounds. No overnight events reported. Patient has been participating with therapy and is doing well. Pt seen today sitting up in wheelchair. Pt denies pain at thistime, well controlled with current medications. Slept off and on and appetite good. Last BM today, no issues. Voiding well. PVR 190-195. Patient denies any chest pain, palpitations, shortness of breath, cough, abdominal pain, nausea and vomiting, or constipation. BP 90/49, HR 83. BG stable. Labs obtained yesterday, reviewed. No other needs or concerns expressed at this time. 05/20 Patient seen and evaluated on daily rounds. No overnight events reported. Patient has been participating with therapy and is doing well. Pt seen today sitting up in wheelchair. Pt reports he was sorewith therapy, but denies pain at this time, well controlled with current medications. Slept well and appetite good, but his uneaten breakfast tray was taken while he was in therapy. Last BM yesterday, no issues. Voiding well. Dialysis today. Patient denies any chest pain, palpitations, shortness ofbreath, cough, abdominal pain, nausea and vomiting, or constipation. BP 109/64, HR 83. Labs to be obtained today with dialysis. BG stable. No other needs or concerns expressed at this time. REVIEW OF SYSTEMS General: no weight loss, [...] the other 14 organ systems are negative CURRENT MEDICATIONS Current Facility-Administered Medications: ??? acetaminophen (TYLENOL) tablet 325 mg, 325 mg, PO/Per Tube, Q6H PRN, Misty Hathaway MD, 325 mgat 05/11/19 2321 ??? allopurinol (ZYLOPRIM) tablet 100 mg, 100 mg, Oral, Once a day, Misty Hathaway MD, 100 mg at 05/20/19 0815 ??? atorvastatin (LIPITOR) tablet 20 mg, 20 mg, Oral, Once a day, Misty Hathaway MD, 20 mg at 05/20/19 0814 ??? bisacodyl (DULCOLAX) suppository 10 mg, 10 mg, Rectal, Once, Manoj Morrison, CORK COMPOUNDER ??? dextrose (GLUTOSE) 40 % oral gel 15 g, 15 g, Oral, PRN, Manoj Morrison, CORK COMPOUNDER ??? dextrose 5 % and sodium chloride 0.45 % infusion, 50 mL/hr, Intravenous, PRN, Manoj Morrison, CORK COMPOUNDER ??? dextrose 50 % IV solution 25 g, 25 g, Intravenous, PRN, Manoj Morrison, CORK COMPOUNDER ??? Diclofenac Sodium (VOLTAREN) 1 % gel 2 g, 2 g, Topical, 2 times per day, Manoj Morrison NP, 2 g at 05/20/19 0817 ??? docusate sodium (COLACE) capsule 100 mg, 100 mg, Oral, Once a day, Misty Hathaway MD, 100 mg at 05/20/19 0815 ??? donepezil (ARICEPT) tablet 10 mg, 10 mg, Oral, Nightly, Misty Hathaway MD, 10 mg at 05/19/19 2106 ??? epoetin ashly-epbx (RETACRIT) 4,000 Units, 4,000 Units, Subcutaneous, T- w/Dialysis, Froy Donato MD, 4,000 Units at 05/18/19 1436 ??? folic acid (FOLVITE) tablet 1 mg, 1 mg, Oral, Once a day, Misty Hathaway MD, 1 mg at 05/20/19 0815 ??? furosemide (LASIX) tablet 80 mg, 80 mg, Oral, BID DIURETIC, ALEIDA Phan, 80 mg at 05/20/19 0814 ??? glucagon (human recombinant) injection 1 mg, 1 mg, Intramuscular, PRN, Manoj Morrison NP ??? heparin (porcine) injection 1,000 Units, 1,000 Units, Intracatheter, Once per day on Fri, Debi Wetzel RN ??? heparin (porcine) injection 1,000 Units, 1,000 Units, Intracatheter, Once per day on Fri, Debi Wetzel RN ??? heparin (porcine) injection 2,000 Units, 2,000 Units, Intravenous, During Dialysis, Debi Wetzel RN ??? heparin (porcine) injection 4,300 Units, 4,300 Units, Intravenous, Once per day on Fri,Florencia Moulton MD, 4,300 Units at 05/18/19 1437 ? ? insulin lispro (HumaLOG) injection 0-6 Units, 0-6 Units, Subcutaneous, AC & HS, 2 Units at 05/16/19 1746 AND POCT glucose, , , AC & HS, Manoj Morrison NP ??? iron sucrose (VENOFER) injection 200 mg, 200 mg, Intravenous, During Dialysis, Carmen Donato MD, 200 mg at 05/18/19 1438 ??? lidocaine (LIDOCARE) 4 % patch 2 patch, 2 patch, Transdermal, Once a day, Manoj Morrison NP, 2 patch at 05/20/19 0813 ??? oxyCODONE-acetaminophen (PERCOCET) 5-325 MG 1 tablet, 1 tablet, Oral, Q6H PRN, Misty Hathaway MD, 1 tablet at 05/13/19 1753 ??? polyethylene glycol (MIRALAX) packet 17 g, 17 g, Oral, Daily PRN, Mike Zamora MD, 17 g at 05/19/19 0852 ??? tamsulosin (FLOMAX) 24 hr capsule 0.4 mg, 0.4 mg, Oral, Nightly, Misty Hathaway MD, 0.4 mg at 05/19/192107 PHYSICAL EXAM WEIGHTS 136 lb 1 oz (61.7 kg) ?? General appearance: awake, alert, cooperative, no distress HEENT: Normocephalic, No icterus, No oral lesions, [...] without mass, non-tender, with normal bowel sounds, External Genitalia not examined, groin Extremities: no clubbing, cyanosis or edema, no calf tenderness Musculoskeletal:no swelling of joints.no redness, FROM otherjoints Psychologic: Mood and affect appropriate, no suicidal ideation. Skin: No rash, swelling or erythema identified . Warm and Dry, R chest dialysis cath with tegaderm dressing clean dry and intact. Neurologic/WHITESMITH:Alert & oriented x 2 confused at times, poor historian, Speech normal, Tongue and uvula central Strength is 4/5 in all extremities ?? No clonus Gait not tested ? Please see height, weight, and BP reported elsewhere as part of this encounter ?? LABS CBC: Recent Labs Lab Units 05/18/19 1052 WBC X(10)9/L BLOOD x10E9/L 4.1* HGB GM/DL BLOOD gm/dL 8.1* PLT CT X(10)9/L BLOOD x10E9/L 275 MCV FL BLOOD fl 97.1 BMP: Recent Labs Lab Units 05/18/19 1052 SODIUM MMOL/L BLOOD mmol/L 134* POTASSIUM MMOL/L BLOOD mmol/L 4.6 CHLORIDE mmol/L 95* CO2 mmol/L 25 BUN MG/DL BLOOD mg/dL 67* CREATININE mg/dL 7.31* GLUCOSE MG/DL BLOOD mg/dL 128* CALCIUM MG/DL BLOOD mg/dL 8.2* DATA Vitals: 05/19/19 0730 05/19/19 2000 05/20/19 0555 05/20/19 0851 BP: 107/62 107/59 109/64 Pulse: 77 83 83 Resp: 18 18 Temp: 97.7 ??F (36.5 ??C) 99.3 ??F (37.4 ??C) 96.4 ??F (35.8 ??C) TempSrc: Oral Oral Oral SpO2: 98% 98% 99% Weight: 130 lb 14.4 oz (59.4 kg) Height: POC Glucose POC Glucose 05/20/19 0658 124 05/19/19 2109 161 05/19/19 1808 108 05/19/19 1600 83 Weights (last 3 days) Date/Time Weight 05/20/19 0555 130 lb 14.4 oz (59.4 kg) 05/19/19 0514 129 lb 11.2 oz (58.8 kg) 05/18/19 0555 134 lb 6.4 oz (61 kg) 05/17/19 0424 129 lb 12.8 oz (58.9 kg) @ANTICOAGSUMMARY@ @FLOWDATE(2706:LAST)@ Intake/Output Summary (Last 24 hours) at 05/20/2019 1052 Last data filed at 05/20/2019 0851 Gross per 24 hour Intake 960 ml Output -- Net 960 ml IMAGING STUDIES & OTHER STUDIES ?? ASSESSMENT AND PLAN Principal Problem: Toxic metabolic encephalopathy Active Problems: Debility Anemia of chronic renal failure Chronic kidney disease, Stage V Essential hypertension Hyperkalemia Hypervolemia Malignant neoplasm of prostate Moderate malnutrition Other hyperlipidemia Retention of urine Diastolic dysfunction Seroma Abnormality of gait End stage renal failure on dialysis Hyperglycemia Debility Active Problems: Type 2 diabetes mellitus Anemia of chronic renal failure Chronic kidney disease, Stage V Essential hypertension Hyperkalemia Hypervolemia Malignant neoplasm of prostate Moderate malnutrition Other hyperlipidemia Retention of urine Diastolic dysfunction Seroma Abnormality of gait Toxic metabolic encephalopathy Acute renal failure, CKD LE edema ESRD,with volume overload, on dialysis now Renal consulted Echo done 04/29 Still on lasix 80 bid watch BP 05/[address] Donato, dialysis today 05/14 PVR 238-242-303 ml, continue with PVR another day. Weight 130 lb 05/15 bun 45 cr 6.77 05/18 bun 67, cr 7.31, on dialysis 05/19 ok to d/c PVRs Diastolic grade 1 heart failure Ef 60% per echo 04/29 Lasix, dialysis 05/14 weight 130 lb 05/16 wt 128 lb 05/20 wt 120 lb L thigh seroma Dopplers done 04/29 negative for dvt Hypertension,/ hypotension / bradycardia Continue meds 05/13 bp 103/61 on norvasc, tenormin , lasix 80 bid, lisinopril 5 DC norvasc - parameters added to bp meds Hold lisinopril x 2 days 05/14 Decrease lisinopril to 2.5. bp 108/60 DC atenolol HR 55-64 DC lisimopril 05/15 bp 90/51 05/16 bp 115/60, 102/63, 83/55, 127/83 hr 80-94 05/17 BP 114/64, stable at this time Hyperkalemia, related to the chronic kidney disease, on dialysis 05/13 k 3.6 05/15 k 4.4 05/18 K 4.6, stable at this time Hypocalcemia 05/15 ca 8.2 05/18 Ca 8.2, stable at this time Gout allopurinol Metabolic acidosis from the renal failure, better with dialysis Anemia, most recent hemoglobin 8.7, , monitor H/H 05/13 h and h 8.8/ 29.1 05/15 h and h 7.9/ 26.1 Vit b 12 349 Epoetin per renal and IV venofer 05/18 H&H 8.1/26.4, stable at this time Altered sugars aacu, SSI 05/13 poct 121 05/14 poct 119-135 05/15 Sugars [phone] 05/16 Sugars [phone] 05/17 bg 112-173, stable at this time ?? h/oProstate cancer Bladder management / hx of orchiectomy / urine retention in acutre Voiding ok Ditropan and flomax 05/13 had high volume PVR , dc ditropan. 05/16 PVR los volumes 122-159-0 ml last night 05/18 PVRs 127-234, will monitor 05/19 ok to d/c PVRs Dementia/ cognitive impairment aricept neuropsych consult DVT prophylaxis: on Lovenox Minh hose Echo 05/01/19: Mild concentric left ventricular hypertrophy. Impaired diastolic relaxation Grade I. Ejection fraction is visually estimated at 60 %. There is mild enlargement of left atrium. Mild aortic valve regurgitation. ?? Pain management Today's pain score 0 05/13 percocet 6 q 6 prn, tylenol Lidocaine patch and voltaren 05/18 denies pain ?? Bowel management . Titrate bowel medications for constipation/diarrhea. 05/13 had bm ?? Full Resuscitation ? Electronically signed by: TITA VARGAS ARNP, 05/20/2019 10:52 AM Cosigned by Misty Hathaway MD at 05/25/2019 12:20 AM GLOVE TAGGER Associated attestation - Misty Hathaway MD - 05/25/2019 1:20 AM EST The patient is being seen for follow-up of all current problems, BP, BS , HR, labs and strength. Follow up on pain, swallowing, bladder and bowel function. Strength improving, able to do therapy ok. I saw, evaluated and examined the patient face to face in conjunction with the CORK COMPOUNDER and agree with the management and disposition of the patient. History also obtained from Nurse and staff about how the patient did overnight and during the day. I performed mario portions of the follow up history, examination, review of labs and radiology and evaluation. I agree with the subjective, physical exam and assessment and plan details as outlined in the note below. Discussed the mario medical decision making- both assessment and plan, rehabilitation goals and treatment plan with patient, CORK COMPOUNDER , nursing staff, farm operator and the members of the team. * Carmen Donato MD - 05/20/2019 10:16 AM CST Nephrology Progress Note Jules Mitchell [id number] Subjective: Patient seen and examined in dialysis, denies fever, chills, chest pain, sob, cough, changes in appetite, N/V, diarrhea, abdominal pain, dysuria, hematuria Objective: Vital signs: Vitals: 05/20/19 0851 05/20/19 1530 05/20/19 1534 05/20/19 1535 BP: 109/64 (!) 173/108 (!) 161/95 (!) 158/89 Pulse: 83 99 99 99 Resp: 18 18 Temp: 96.4 ??F (35.8 ??C) 97.3 ??F (36.3 ??C) TempSrc: Oral Oral SpO2: 99% Weight: Height: Weight: Wt Readings from Last 3 Encounters: 05/20/19 130 lb 14.4 oz (59.4 kg) Medications: Scheduled/Continuous Medications Scheduled Medication Dose/Rate, Route, Frequency Last Action allopurinol (ZYLOPRIM) tablet 100 mg 100 mg, PO, Once a day Given: 05/20 814 atorvastatin (LIPITOR) tablet 20 mg 20 mg, PO, Once a day Given: 05/20 813 bisacodyl (DULCOLAX) suppository 10 mg 10 mg, RE, Once Ordered Diclofenac Sodium (VOLTAREN) 1 % gel 2 g 2 g, TOP, BID Given: 05/20 816 docusate sodium (COLACE) capsule 100 mg 100 mg, PO, Once a day Given: 05/20 814 donepezil (ARICEPT) tablet 10 mg 10 mg, PO, Nightly Given: 05/19 2105 epoetin ashly-epbx (RETACRIT) 4,000 Units 4,000 Units, SC, T-Th-Sat w/Dialysis Given: 05/20 112 folic acid (FOLVITE) tablet 1 mg 1 mg, PO, Once a day Given: 05/20 08 furosemide (LASIX) tablet 80 mg 80 mg, PO, BID DIURETIC Given: 05/20 1604 heparin (porcine) injection 1,000 Units 1,000 Units, IK, 3x/week in HD Given by Other: 05/20 1523 heparin (porcine) injection 1,000 Units 1,000 Units, IK, 3x/week in HD Given by Other: 05/20 1521 heparin (porcine) injection 2,000 Units 2,000 Units, IV, During Dialysis Given: 05/20 1130 heparin (porcine) injection 4,300 Units 4,300 Units, IV, 3x/week in HD Given: 05/20 1131 insulin lispro (HumaLOG) injection 0-6 Units 2 Units, SC, AC & HS Given - Witness Not Required:05/16 174 iron sucrose (VENOFER) injection 200 mg 200 mg, IV, During Dialysis Given: 05/20 113 lidocaine (LIDOCARE) 4 % patch 2 patch 2 patch, TD, Once a day Medication Applied: 05/20 812 tamsulosin (FLOMAX) 24 hr capsule 0.4 mg 0.4 mg, PO, Nightly Given: 05/19 2107 Current Facility-Administered Medications: ??? acetaminophen (TYLENOL) tablet 325 mg, 325 mg, PO/Per Tube, Q6H PRN, Misty Hathaway MD, 325 mgat 05/11/19 2321 ??? allopurinol (ZYLOPRIM) tablet 100 mg, 100 mg, Oral, Once a day, Misty Hathaway MD, 100 mg at 05/20/19 0815 ??? atorvastatin (LIPITOR) tablet 20 mg, 20 mg, Oral, Once a day, Misty Hathaway MD, 20 mg at 05/20/19 0814 ??? bisacodyl (DULCOLAX) suppository 10 mg, 10 mg, Rectal, Once, Lucdawood Elliottl, CORK COMPOUNDER ??? dextrose (GLUTOSE) 40 % oral gel 15 g, 15 g, Oral, PRN, Lucija Sadl, CORK COMPOUNDER ??? dextrose 5 % and sodium chloride 0.45 % infusion, 50 mL/hr, Intravenous, PRN, Lucija Sadl, CORK COMPOUNDER ??? dextrose 50 % IV solution 25 g, 25 g, Intravenous, PRN, Lucija Sadl, CORK COMPOUNDER ??? Diclofenac Sodium (VOLTAREN) 1 % gel 2 g, 2 g, Topical, 2 times per day, Lucdawood Elliottl, CORK COMPOUNDER, 2 g at 05/20/19 0817 ??? docusate sodium (COLACE) capsule 100 mg, 100 mg, Oral, Once a day, Misty Hathaawy MD, 100 mg at 05/20/19 0815 ??? donepezil (ARICEPT) tablet 10 mg, 10 mg, Oral, Nightly, Misty Hathaway MD, 10 mg at 05/19/19 2106 ??? epoetin ashly-epbx (RETACRIT) 4,000 Units, 4,000 Units, Subcutaneous, w/Dialysis, Froy Donato MD, 4,000 Units at 05/20/19 1126 ??? folic acid (FOLVITE) tablet 1 mg, 1 mg, Oral, Once a day, Misty Hathaway MD, 1 mg at 05/20/19 0815 ??? furosemide (LASIX) tablet 80 mg, 80 mg, Oral, BID DIURETIC, ALEIDA Phan, 80 mg at 05/20/19 1604 ??? glucagon (human recombinant) injection 1 mg, 1 mg, Intramuscular, PRN, Manoj Morrison NP ??? heparin (porcine) injection 1,000 Units, 1,000 Units, Intracatheter, Once per day on Fri, Debi Wetzel RN, 1,000 Units at 05/20/19 1523 ??? heparin (porcine) injection 1,000 Units, 1,000 Units, Intracatheter, Once per day on Fri, Debi Wetzel RN, 1,000 Units at 05/20/19 1521 ??? heparin (porcine) injection 2,000 Units, 2,000 Units, Intravenous, During Dialysis, Debi Wetzel RN, 2,000 Units at 05/20/19 1130 ??? heparin (porcine) injection 4,300 Units, 4,300 Units, Intravenous, Once per day on Fri,Florencia Moulton MD, 4,300 Units at 05/20/19 1131 ? ? insulin lispro (HumaLOG) injection 0-6 Units, 0-6 Units, Subcutaneous, AC & HS, 2 Units at 05/16/19 1746 AND POCT glucose, , , AC & HS, Manoj Morrison, NEENA ??? iron sucrose (VENOFER) injection 200 mg, 200 mg, Intravenous, During Dialysis, Carmen Donato MD, 200 mg at 05/20/19 1132 ??? lidocaine (LIDOCARE) 4 % patch 2 patch, 2 patch, Transdermal, Once a day, Manoj Morrison NP, 2 patch at 05/20/19 0813 ??? oxyCODONE-acetaminophen (PERCOCET) 5-325 MG 1 tablet, 1 tablet, Oral, Q6H PRN, Misty Hathaway MD, 1 tablet at 05/20/19 1503 ??? polyethylene glycol (MIRALAX) packet 17 g, 17 g, Oral, Daily PRN, Mike Zamora MD, 17 g at 05/19/19 0852 ??? tamsulosin (FLOMAX) 24 hr capsule 0.4 mg, 0.4 mg, Oral, Nightly, Misty Hathaway MD, 0.4 mg at 05/19/19 2108 ??? acetaminophen ??? glucose ??? dextrose 5 % and sodium chloride 0.45 % ??? dextrose ??? glucagon ??? oxyCODONE-acetaminophen ??? polyethylene glycol Physical Exam: General: awake and alert. In NAD Lungs: CTA B/L Heart: RRR, S1 and S2 without rubs Abdomen: Soft, NT/ND, + BS Ext: Without edema Labs: Recent Labs Lab Units 05/20/19 1016 05/18/19 1052 05/15/19 0659 SODIUM MMOL/L BLOOD mmol/L 137 134* 137 POTASSIUM MMOL/L BLOOD mmol/L 5.6* 4.6 4.4 CHLORIDE mmol/L 99 95* 96* CO2 mmol/L 23 25 30 BUN MG/DL BLOOD mg/dL 55* 67* 45* CREATININE mg/dL 7.67* 7.31* 6.77* GLUCOSE MG/DL BLOOD mg/dL 105 128* 131* CALCIUM MG/DL BLOOD mg/dL 8.6 8.2* 8.2* ANION GAP BLOOD mmol/L 15 14 11 Recent Labs Lab Units 05/20/19 1016 05/18/19 1052 05/15/19 0659 SODIUM MMOL/L BLOOD mmol/L 137 134* 137 POTASSIUM MMOL/L BLOOD mmol/L 5.6* 4.6 4.4 CHLORIDE mmol/L 99 95* 96* CO2 mmol/L 23 25 30 BUN MG/DL BLOOD mg/dL 55* 67* 45* CREATININE mg/dL 7.67* 7.31* 6.77* GLUCOSE MG/DL BLOOD mg/dL 105 128* 131* CALCIUM MG/DL BLOOD mg/dL 8.6 8.2* 8.2* Recent Labs Lab Units 05/20/19 1016 05/18/19 1052 05/15/19 0659 SODIUM MMOL/L BLOOD mmol/L 137 134* 137 POTASSIUM MMOL/L BLOOD mmol/L 5.6* 4.6 4.4 CHLORIDE mmol/L 99 95* 96* CO2 mmol/L 23 25 30 BUN MG/DL BLOOD mg/dL 55* 67* 45* CREATININE mg/dL 7.67* 7.31* 6.77* GLUCOSE MG/DL BLOOD mg/dL 105 128* 131* CALCIUM MG/DL BLOOD mg/dL 8.6 8.2* 8.2* Recent Labs Lab Units 05/18/19 1052 05/15/19 0659 WBC X(10)9/L BLOOD x10E9/L 4.1* 5.7 HGB GM/DL BLOOD gm/dL 8.1* 7.9* HCT % BLOOD % 26.4* 26.1* PLT CT X(10)9/L BLOOD x10E9/L 275 218 Assessment/ Plan: Principal Problem: Toxic metabolic encephalopathy Active Problems: Debility Anemia of chronic renal failure Chronic kidney disease, Stage V Essential hypertension Hyperkalemia Hypervolemia Malignant neoplasm of prostate Moderate malnutrition Other hyperlipidemia Retention of urine Diastolic dysfunction Seroma Abnormality of gait End stage renal failure on dialysis Hyperglycemia LOS: 9 days Assessment/Plan ESRD: on dialysis now. HTN: reasonably controlled with dialysis Acute volume overload related to ESRD: compensated on dialysis and oral Lasix Anemia related to ESRD, iron deficiency: on iron replacment DM Left thigh seroma Hyperlipidemia:on statin Hyperkalemia from ESRD: on dialysis and this is better Generalized weakness from uremia: on rehab Metabolic acidosis: stable on dialysis Constipation: on bowel regimen Weakness: on rehab CARMEN DONATO MD * Florencia Moulton MD - 05/19/2019 11:56 PM CST Images from the original note were not included. Rehabilitation Physician Progress Note Patient Name: Jules Mitchell Age: 73 y.o. Patient's Primary Care Physician: Dr. Kwame Berg LOS: 8 DAYS This was a face to face visit with the patient Seen and examined today for rehab and medical issues related to debility with encephalopathy. CC Likes walking HPI and Interval history: Watching pvrs-dced ditropan Less than 300 cc Tolerating HD Blood sugars are below 150 PVRs remain below 300 cc Ambulating better Family teaching Subjective Review of Systems Denies chest pain, dyspnea or nausea. PHYSICAL EXAM: (Retired) Vitals (last 3 days) Date/Time Temp Pulse Resp BP SpO2 Weight 05/19/191999 99.3 ??F (37.4 ??C) 83 18 107/59 98 % -- 05/19/19 0730 97.7 ??F (36.5 ??C) 77 18 107/62 98 % -- 05/19/19 0514 -- -- -- -- -- 129 lb 11.2 oz (58.8 kg) 05/18/192052 99.1 ??F (37.3 ??C) 83 16 90/49 100 % -- 05/18/191747 -- -- -- 115/74 -- -- 05/18/19 08 -- 67 -- 105/57 95 % -- 05/18/19 0700 97.2 ??F (36.2 ??C) 74 16 98/58 97 % -- 05/18/19 0555 -- -- -- -- -- 134 lb 6.4 oz (61 kg) 05/17/191952 98.4 ??F (36.9 ??C) 67 16 118/56 100 % -- 05/17/19 0700 97 ??F (36.1 ??C) 64 18 114/64 100 % -- 05/17/19 0424 -- -- -- -- -- 129 lb 12.8 oz (58.9 kg) 05/16/192020 98.5 ??F (36.9 ??C) 70 20 116/63 100 % -- 05/16/191747 -- -- -- 127/83 -- -- 01/19/20 0820 -- 94 -- 102/63 98 % -- 05/16/19 0730 97.5 ??F (36.4 ??C) 80 18 (!) 83/57 98 % -- Blood sugars: POC Glucose POC Glucose 05/19/19 2109 161 05/19/19 1808 108 05/19/19 1600 83 05/19/19 0643 115 Weights (last 3 days) Date/Time Weight 05/19/19 0514 129 lb 11.2 oz (58.8 kg) 05/18/19 0555 134 lb 6.4 oz (61 kg) 05/17/19 0424 129 lb 12.8 oz (58.9 kg) GENERAL: Alert, in NAD HEENT: EOMI MMM NECK: no JVD LUNGS: Clear to auscultation CV: RR ABDOMEN: Soft NT to palpation EXTREMITIES: Less edema SKIN: No new issues TONE: normal MUSCULOSKELETAL: UE without weakness LLE with hip flexion, knee extension, ankle dorsiflexion NEURO: Lab Data Reviewed current lab results available to me today. Lab Results Component Value Date WBC 4.1 (L) 05/18/2019 HGB 8.1 (L) 05/18/2019 HCT 26.4 (L) 05/18/2019 MCV 97.1 05/18/2019 PLT 275 05/18/2019 Lab Results Component Value Date GLUCOSE 128 (H) 05/18/2019 CALCIUM 8.2 (L) 05/18/2019 NA 134 (L) 05/18/2019 K 4.6 05/18/2019 CO2 25 05/18/2019 CL 95 (L) 05/18/2019 BUN 67 (H) 05/18/2019 CREATININE 7.31 (H) 05/18/2019 ANIONGAP 14 05/18/2019 Imaging Reviewed current imaging results available to me today. No results found. Allergies No Known Allergies Medication List Scheduled/Continuous Medications Scheduled Medication Dose/Rate, Route, Frequency Last Action allopurinol (ZYLOPRIM) tablet 100 mg 100 mg, PO, Once a day Given: 05/19 08 atorvastatin (LIPITOR) tablet 20 mg 20 mg, PO, Once a day Given: 05/19 08 bisacodyl (DULCOLAX) suppository 10 mg 10 mg, RE, Once Ordered Diclofenac Sodium (VOLTAREN) 1 % gel 2 g 2 g, TOP, BID Given: 05/19 2107 docusate sodium (COLACE) capsule 100 mg 100 mg, PO, Once a day Given: 05/19 852 donepezil (ARICEPT) tablet 10 mg 10 mg, PO, Nightly Given: 05/19 2105 epoetin ashly-epbx (RETACRIT) 4,000 Units 4,000 Units, SC, T-Th-Sat w/Dialysis Given: 05/18 143 folic acid (FOLVITE) tablet 1 mg 1 mg, PO, Once a day Given: 05/19 852 furosemide (LASIX) tablet 80 mg 80 mg, PO, BID DIURETIC Given: 05/19 155 heparin (porcine) injection 1,000 Units 1,000 Units, IK, 3x/week in HD Ordered heparin (porcine) injection 1,000 Units 1,000 Units, IK, 3x/week in HD Ordered heparin (porcine) injection 2,000 Units 2,000 Units, IV, During Dialysis Ordered heparin (porcine) injection 4,300 Units 4,300 Units, IV, 3x/week in HD Given by Other: 05/18 1436 insulin lispro (HumaLOG) injection 0-6 Units 2 Units, SC, AC & HS Given - Witness Not Required:05/16 1745 iron sucrose (VENOFER) injection 200 mg 200 mg, IV, During Dialysis Given by Other: 05/18 1437 lidocaine (LIDOCARE) 4 % patch 2 patch 2 patch, TD, Once a day Medication Applied: 05/19 852 tamsulosin (FLOMAX) 24 hr capsule 0.4 mg 0.4 mg, PO, Nightly Given: 05/19 2107 Current Functional Status reviewed today: TRANSFERS: Sit to and from stand with close supervision (imrpoved from minimal assistance). Stand pivot transfer with close supervision (improved from minimal assistance). Car transfer with minimal assistance (no change). GAIT: Section GG CARE Scores Physical Therapy? Car Transfer Car Transfer - CARE Score: 3 (05/18/191548 : Kylie Sanchez, PT) Walk 10 Feet Walk 10 Feet - CARE Score: 4 (05/18/191548 : Kylie Sanchez, PT) Walk 50 Feet with Two Turns Walk 50 Feet with Two Turns - CARE Score: 4 (05/18/191548 : Kylie Sanchez, PT) Walk 150 Feet Walk 150 Feet - CARE Score: 4 (05/18/19 1549 : Kylie Sanchez PT) Walking 10 Feet on Uneven Surfaces Walking 10 Feet on Uneven Surfaces - CARE Score: 4 (05/18/191548 : Kylie Sanchez PT) 1 Step (Curb) 1 Step (Curb) - CARE Score: 4 (05/18/19 154 : Kylie Sanchez PT) 4 Steps 4 Steps - CARE Score: 4 (05/18/191548 : Kylie Sanchez PT) 12 Steps 12 Steps - CARE Score: 4 (05/18/191548 : Kylie Sanchez PT) Picking Up Object Picking Up Object - CARE Score: 4 (05/18/191548 : Kylie Sanchez PT) Wheel 50 Feet with Two Turns Wheel 50 Feet with Two Turns - CARE Score: 3 (05/18/191548 : Kylie Sanchez PT) Wheel 150 Feet Wheel 150 Feet - CARE Score: 2 (05/18/191548 : Kylie Sanchez PT) BARRIERS: Cognitive impairments Assessment and Plan 1.Etiologic Diagnosis: Encephalopathy in setting of new renal failure-may have dementia-on aricept.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 Minimal assist required for expression and memory. 2. Gait disorder multifactorial. Endurance training progressing well. Patient is ambulating over 150' with RW and close supervision. 3. ESRD: HD per dr donato 4. Urinary retention, resolved. Off ditropan, all PVR's below 300 cc. Continuing Flomax. 5. Osteoarthritis: Voltaren gel, prn oral analgesics. 6. Dyslipidemia: continuing statin. 7. History of gout: Allopurinol. No new joint complaints. Co-Morbidities that are continuing to impact the rehab process: Problem List: 2019-04: Hyperglycemia 2019-04: Retention of urine 2019-04: Diastolic dysfunction 2019-04: Seroma 2019-04: Abnormality of gait 2019-04: Toxic metabolic encephalopathy 2019-04: End stage renal failure on dialysis 2019-04: Debility 2019-04: Moderate malnutrition 2019-04: Anemia of chronic renal failure 2019-04: Chronic kidney disease, Stage V 2019-04: Essential hypertension 2019-04: Hyperkalemia 2019-04: Hypervolemia 2019-04: Malignant neoplasm of prostate 2019-04: Other hyperlipidemia 2019-04: Metabolic acidosis 2019-04: Latent autoimmune diabetes mellitus in adult Continue therapies. Continue inpatient comprehensive interdisciplinary rehabilitation to address strengthening, mobility skills, self care, cognitive functioning, speech, communication and swallowing needs. The patient continues to require the interdisciplinary team approach and 24 hour monitoring. ADDITIONAL INFORMATION: left leg previous injury, ?seroma EDUCATION/PT TEACHING: therapy goals EQUIPMENT: TBD [facility] DESTINATION: home CANDI: 05/28/2019 FOLLOW UP PLANS: FLORENCIA Larios MD 05/19/19 11:56 PM * Tita Oro Vargas, BEAM RACKER - 05/19/2019 2:42 PM CST Images from the original note were not included. HOSPITALIST PROGRESS NOTE Patient Name: Jules Mitchell : 1945 Medical Record: [id number] Admit date 05/11/19 DATE OF SERVICE 05/19/2019 ATTENDING PHYSICIAN Florencia Moulton MD ? CHIEF COMPLAINT Principal Problem: Debility Active Problems: Type 2 diabetes mellitus Anemia of chronic renal failure Chronic kidney disease, Stage V Essential hypertension Hyperkalemia Hypervolemia Malignant neoplasm of prostate Moderate malnutrition Other hyperlipidemia Retention of urine Diastolic dysfunction Seroma Abnormality of gait Toxic metabolic encephalopathy ? HISTORY OF PRESENT ILLNESS ?? The patient is a 73 y.o. y/o male with history of f prostate cancer, DM, and HTN [facility] intermittent left leg pain since last week. he has left sided buttock pain that radiates down posterior aspect of leg to knee. Hx coagulopathy, Hx venous thromboembolism. Pt was in acute renal failure with volume overload. Seen by renal , initiated dialysis , ?? currently here for therapy Todays chief Complains gen weakness Left leg pain ?? Confused about details of history ?? Duration of problems- Intensity Type Associated symptoms Aggrevating/relieving factors ? History also obtained from review of patients previous acute hospitalization chart, current rehabilitation chart , discussion with family members in the room and discussion with nursing staff taking care of the patient. ? SUBJECTIVE 05/13 initial progress note The patient is being seen for follow-up of all current problems, BP, BS , HR, labs and strength. Follow up on pain, swallowing, bladder and bowel function. Patient denies any chest pain, palpitations, shortness of breath, cough, abdominal pain, nausea, vomiting, diarrhea or constipation. No overnight events. Denies pain. Pain controlled on meds prescribed. Bowel movement 05/10. Lactulose ordered. Refused last night suppository. Had bm today 05/13 bp low bp 103/61 DC norvasc - hold lisinopril x 2 days Has 800 ml urine output with current urine agents- DC ditropan per PMR. Bladder scan [phone] ml had to be straight cath 800 ml out PVR 600 ml Due for dialysis today followed by Dr Donato Case discussed with Dr. Moulton, physiatry. Minh burns added Liver enzymes OK Seen by Neuropsych Appetite good and states slept well. Patient participating with therapy and is doing well. No further needs expressed at this time. 05/14 The patient is being seen for follow-up of all current problems, BP, BS , HR, labs and strength. Follow up on pain, swallowing, bladder and bowel function. Patient denies any chest pain, palpitations, shortness of breath, cough, abdominal pain, nausea, vomiting, diarrhea or constipation. No overnight events. 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 Pain controlled on meds prescribed. Bowel movement 05/13 x 2. Pt seen this am sitting up in chair working with [employer]. Discussed pt with Carlos. Walking 100 ft with therapy, eager for exercises today. Requesting topical agent for L knee pain- voltaren gel ordered. Lidocaine patch for L thigh pain- edema improved. 1500 ml off with dialysis yesterday- tolerated. PVR 238-242-303 ml, continue with PVR another day. Weight 130 lb Sugars stable 119-135 Afebrile. HR 60s bp 119/60, 108/62. sats 100 % RA Atenolol held today. Decrease lisinopril to 2.5 Appetite good and states slept well. Patient participating with therapy and is doing well. No further needs expressed at this time. 05/15 The patient is being seen for follow-up of all current problems, BP, BS , HR, labs and strength. Follow up on pain, swallowing, bladder and bowel function. Patient denies any chest pain, palpitations, shortness of breath, cough, abdominal pain, nausea, vomiting, diarrhea or constipation. No overnight events. Denies pain. Pain controlled on meds prescribed. Pain better with lidocaine and voltaren gel. Bowel movement 05/13 bp soft this am- hold atenolol x 2 days Hold lasix and lisonopril DC atenolol- feels dizzy with therapy Notified Bandar Donato. Dc lisinopril, wants to continue lasix BID pvr 278 ml, 330-224. Has x 1 straigh cath last night with 300 ml out urine. No weight recorded this am Sugars [phone]- Dialysis today, BP still soft 90/51, HR 57-64. Holding atenolol x 2 days and held lasix and lisinopril this am. PVR 278 ml 330-224, was cath x 1 today with 300 ml out Appetite good and states slept well. Patient participating with therapy and is doing well. No further needs expressed at this time. BP low still down to 80s On dialysis Called and D/W Dr Donato - continue lasix Since pt having good urine out put ?? DC Lisinopril AND CHIVO I 05/16 The patient is being seen for follow-up of all current problems, BP, BS , HR, labs and strength. Follow up on pain, swallowing, bladder and bowel function. Patient denies any chest pain, palpitations, shortness of breath, cough, abdominal pain, nausea, vomiting, diarrhea or constipation. No overnight events. Denies pain. Pain controlled on meds prescribed. Bowel movement today. Pain better with patch. Has not taken percocet since 05/13 Afebrile. HR 90s-80 bp 102/63 sats 98% RA. Still off most BP meds-monitor. 2000 ml off with dialysis. PVR 122-159-0 ml. Weigth stable 128 lb. Pt seen sitting up in chair watching tv, L thigh edema down. Sugars [phone] Labs done 05/15. Appetite good and states slept well. Patient participating with therapy and is doing well. No further needs expressed at this time. 05/17 Patient seen and evaluated on daily rounds. No overnight events reported. Patient has been participating with therapy and is doing well. Pt seen today sitting up in wheelchair. Pt denies pain at thistime, well controlled with current medications. Slept well and appetite good. Last BM yesterday, noissues. Voiding well. Continue dialysis. Patient denies any chest pain, palpitations, shortness of breath, cough, abdominal pain, nausea and vomiting, or constipation. BP 114/64 without BP meds, HR 64. BG stable. No other needs or concerns expressed at this time. 05/18 Patient seen and evaluated on daily rounds. No overnight events reported. Patient has been participating with therapy and is doing well. Pt seen today sitting up in wheelchair. Pt denies pain at thistime, not requiring pain medications. Slept okay and appetite good. Last BM today, no issues. Voiding well. PVRs 127-234 ml. Patient denies any chest pain, palpitations, shortness of breath, cough, abdominal pain, nausea and vomiting, or constipation. BP 105/57, HR 67. BG stable. Anticipate dialysis with labs today. No other needs or concerns expressed at this time. 05/19 Patient seen and evaluated on daily rounds. No overnight events reported. Patient has been participating with therapy and is doing well. Pt seen today sitting up in wheelchair. Pt denies pain at thistime, well controlled with current medications. Slept off and on and appetite good. Last BM today, no issues. Voiding well. PVR 190-195. Patient denies any chest pain, palpitations, shortness of breath, cough, abdominal pain, nausea and vomiting, or constipation. BP 90/49, HR 83. BG stable. Labs obtained yesterday, reviewed. No other needs or concerns expressed at this time. REVIEW OF SYSTEMS General: no weight loss, [...] the other 14 organ systems are negative CURRENT MEDICATIONS Current Facility-Administered Medications: ??? acetaminophen (TYLENOL) tablet 325 mg, 325 mg, PO/Per Tube, Q6H PRN, Misty Hathaway MD, 325 mgat 05/11/19 2321 ??? allopurinol (ZYLOPRIM) tablet 100 mg, 100 mg, Oral, Once a day, Misty Hathaway MD, 100 mg at 05/19/19 0852 ??? atorvastatin (LIPITOR) tablet 20 mg, 20 mg, Oral, Once a day, Misty Hathaway MD, 20 mg at 05/19/19 0853 ??? bisacodyl (DULCOLAX) suppository 10 mg, 10 mg, Rectal, Once, Manoj Morrison, CORK COMP[employer] ??? dextrose (GLUTOSE) 40 % oral gel 15 g, 15 g, Oral, PRN, Manoj Elliottl, [employer] ??? dextrose 5 % and sodium chloride 0.45 % infusion, 50 mL/hr, Intravenous, PRN, Manoj Morrison, [employer] ??? dextrose 50 % IV solution 25 g, 25 g, Intravenous, PRN, Manoj Elliottl, [employer] ??? Diclofenac Sodium (VOLTAREN) 1 % gel 2 g, 2 g, Topical, 2 times per day, Manoj Morrison, [employer] COMP[employer], 2 g at 05/19/19 0855 ??? docusate sodium (COLACE) capsule 100 mg, 100 mg, Oral, Once a day, Misty Hathaway MD, 100 mg at 05/19/19 0853 ??? donepezil (ARICEPT) tablet 10 mg, 10 mg, Oral, Nightly, Misty Hathaway MD, 10 mg at 05/18/19 2036 ??? epoetin ashly-epbx (RETACRIT) 4,000 Units, 4,000 Units, Subcutaneous, T--Fri w/Dialysis, Froy Donato MD, 4,000 Units at 05/18/19 1436 ??? folic acid (FOLVITE) tablet 1 mg, 1 mg, Oral, Once a day, Misty Hathaway MD, 1 mg at 05/19/19 0853 ??? furosemide (LASIX) tablet 80 mg, 80 mg, Oral, BID DIURETIC, Manoj Morrison NP, 80 mg at 05/18/19 1747 ??? glucagon (human recombinant) injection 1 mg, 1 mg, Intramuscular, PRN, Manoj Morrison NP ??? heparin (porcine) injection 1,000 Units, 1,000 Units, Intracatheter, Once per day on Fri Sat, Debi Wetzel RN ??? heparin (porcine) injection 1,000 Units, 1,000 Units, Intracatheter, Once per day on Fri Sat, Debi Wetzel RN ??? heparin (porcine) injection 2,000 Units, 2,000 Units, Intravenous, During Dialysis, Debi Wetzel RN ??? heparin (porcine) injection 4,300 Units, 4,300 Units, Intravenous, Once per day on Fri Sat,Florencia Moulton MD, 4,300 Units at 05/18/19 1437 ? ? insulin lispro (HumaLOG) injection 0-6 Units, 0-6 Units, Subcutaneous, AC & HS, 2 Units at 05/16/19 1746 AND POCT glucose, , , AC & HS, Manoj Morrison NP ??? iron sucrose (VENOFER) injection 200 mg, 200 mg, Intravenous, During Dialysis, Carmen Donato MD, 200 mg at 05/18/19 1438 ??? lidocaine (LIDOCARE) 4 % patch 2 patch, 2 patch, Transdermal, Once a day, Manoj Morrison NP, 2 patch at 05/19/19 0853 ??? oxyCODONE-acetaminophen (PERCOCET) 5-325 MG 1 tablet, 1 tablet, Oral, Q6H PRN, Misty Hathaway MD, 1 tablet at 05/13/19 1753 ??? polyethylene glycol (MIRALAX) packet 17 g, 17 g, Oral, Daily PRN, Mike Zamora MD, 17 g at 05/19/19 0852 ??? tamsulosin (FLOMAX) 24 hr capsule 0.4 mg, 0.4 mg, Oral, Nightly, Misty Hathaway MD, 0.4 mg at 05/18/192035 PHYSICAL EXAM WEIGHTS 136 lb 1 oz (61.7 kg) ?? General appearance: awake, alert, cooperative, no distress HEENT: Normocephalic, No icterus, No oral lesions, [...] without mass, non-tender, with normal bowel sounds, External Genitalia not examined, groin Extremities: no clubbing, cyanosis or edema, no calf tenderness Musculoskeletal:no swelling of joints.no redness, FROM otherjoints Psychologic: Mood and affect appropriate, no suicidal ideation. Skin: No rash, swelling or erythema identified . Warm and Dry, R chest dialysis cath with tegaderm dressing clean dry and intact. Neurologic/WHITESMITH:Alert & oriented x 2 confused at times, poor historian, Speech normal, Tongue and uvula central Strength is 4/5 in all extremities ?? No clonus Gait not tested ? Please see height, weight, and BP reported elsewhere as part of this encounter ?? LABS CBC: Recent Labs Lab Units 05/18/19 1052 WBC X(10)9/L BLOOD x10E9/L 4.1* HGB GM/DL BLOOD gm/dL 8.1* PLT CT X(10)9/L BLOOD x10E9/L 275 MCV FL BLOOD fl 97.1 BMP: Recent Labs Lab Units 05/18/19 1052 05/13/19 0500 SODIUM MMOL/L BLOOD mmol/L 134* < > 137 POTASSIUM MMOL/L BLOOD mmol/L 4.6 < > 3.6 CHLORIDE mmol/L 95* < > 96* CO2 mmol/L 25 < > 26 BUN MG/DL BLOOD mg/dL 67* < > 48* CREATININE mg/dL 7.31* < > 5.64* GLUCOSE MG/DL BLOOD mg/dL 128* < > 121* CALCIUM MG/DL BLOOD mg/dL 8.2* < > 8.3* ALBUMIN GM/DL BLOOD gm/dL -- -- 3.4 < > = values in this interval not displayed. DATA Vitals: 05/18/19 0855 05/18/19 1748 05/18/19205205/19/19 0514 BP: 105/57 115/74 90/49 Pulse: 67 83 Resp: 16 Temp: 99.1 ??F (37.3 ??C) TempSrc: Oral SpO2: 95% 100% Weight: 129 lb 11.2 oz (58.8 kg) Height: POC Glucose POC Glucose 05/19/19 0643 115 05/18/19 2130 96 05/18/19 1649 122 Weights (last 3 days) Date/Time Weight 05/19/19 0514 129 lb 11.2 oz (58.8 kg) 05/18/19 0555 134 lb 6.4 oz (61 kg) 05/17/19 0424 129 lb 12.8 oz (58.9 kg) @ANTICOAGSUMMARY@ @FLOWDATE(2706:LAST)@ Intake/Output Summary (Last 24 hours) at 05/19/2019 1442 Last data filed at 05/19/2019 1230 Gross per 24 hour Intake 580 ml Output -- Net 580 ml IMAGING STUDIES & OTHER STUDIES ?? ASSESSMENT AND PLAN Principal Problem: Toxic metabolic encephalopathy Active Problems: Debility Anemia of chronic renal failure Chronic kidney disease, Stage V Essential hypertension Hyperkalemia Hypervolemia Malignant neoplasm of prostate Moderate malnutrition Other hyperlipidemia Retention of urine Diastolic dysfunction Seroma Abnormality of gait End stage renal failure on dialysis Hyperglycemia Debility Active Problems: Type 2 diabetes mellitus Anemia of chronic renal failure Chronic kidney disease, Stage V Essential hypertension Hyperkalemia Hypervolemia Malignant neoplasm of prostate Moderate malnutrition Other hyperlipidemia Retention of urine Diastolic dysfunction Seroma Abnormality of gait Toxic metabolic encephalopathy Acute renal failure, CKD LE edema ESRD,with volume overload, on dialysis now Renal consulted Echo done 04/29 Still on lasix 80 bid watch BP 05/[address] Donato, dialysis today 05/14 PVR 238-242-303 ml, continue with PVR another day. Weight 130 lb 05/15 bun 45 cr 6.77 05/18 bun 67, cr 7.31, on dialysis 05/19 ok to d/c PVRs Diastolic grade 1 heart failure Ef 60% per echo 04/29 Lasix, dialysis 05/14 weight 130 lb 05/16 wt 128 lb L thigh seroma Dopplers done 04/29 negative for dvt Hypertension,/ hypotension / bradycardia Continue meds 05/13 bp 103/61 on norvasc, tenormin , lasix 80 bid, lisinopril 5 DC norvasc - parameters added to bp meds Hold lisinopril x 2 days 05/14 Decrease lisinopril to 2.5. bp 108/60 DC atenolol HR 55-64 DC lisimopril 05/15 bp 90/51 05/16 bp 115/60, 102/63, 83/55, 127/83 hr 80-94 05/17 BP 114/64, stable at this time Hyperkalemia, related to the chronic kidney disease, on dialysis 05/13 k 3.6 05/15 k 4.4 05/18 K 4.6, stable at this time Hypocalcemia 05/15 ca 8.2 05/18 Ca 8.2, stable at this time Gout allopurinol Metabolic acidosis from the renal failure, better with dialysis Anemia, most recent hemoglobin 8.7, , monitor H/H 05/13 h and h 8.8/ 29.1 05/15 h and h 7.9/ 26.1 Vit b 12 349 Epoetin per renal and IV venofer 05/18 H&H 8.1/26.4, stable at this time Altered sugars aacu, SSI 05/13 poct 121 05/14 poct 119-135 05/15 Sugars [phone] 05/16 Sugars [phone] 05/17 bg 112-173, stable at this time ?? h/oProstate cancer Bladder management / hx of orchiectomy / urine retention in acutre Voiding ok Ditropan and flomax 05/13 had high volume PVR , dc ditropan. 05/16 PVR los volumes 122-159-0 ml last night 05/18 PVRs 127-234, will monitor Dementia/ cognitive impairment aricept neuropsych consult DVT prophylaxis: on Lovenox Minh hose Echo 05/01/19: Mild concentric left ventricular hypertrophy. Impaired diastolic relaxation Grade I. Ejection fraction is visually estimated at 60 %. There is mild enlargement of left atrium. Mild aortic valve regurgitation. ?? Pain management Today's pain score 0 05/13 percocet 6 q 6 prn, tylenol Lidocaine patch and voltaren 05/18 denies pain ?? Bowel management . Titrate bowel medications for constipation/diarrhea. 05/13 had bm ?? Full Resuscitation ? Electronically signed by: TITA VARGAS ARNP, 05/19/2019 2:42 PM Cosigned by Misty Hathaway MD at 05/25/2019 12:20 AM GLOVE TAGGER Associated attestation - Misty Hathaway MD - 05/25/2019 1:20 AM EST The patient is being seen for follow-up of all current problems, BP, BS , HR, labs and strength. Follow up on pain, swallowing, bladder and bowel function. Strength improving, able to do therapy ok. I saw, evaluated and examined the patient face to face in conjunction with the CORK COMPOUNDER and agree with the management and disposition of the patient. History also obtained from Nurse and staff about how the patient did overnight and during the day. I performed mario portions of the follow up history, examination, review of labs and radiology and evaluation. I agree with the subjective, physical exam and assessment and plan details as outlined in the note below. Discussed the mario medical decision making- both assessment and plan, rehabilitation goals and treatment plan with patient, CORK COMPOUNDER , nursing staff, farm operator and the members of the team. * aTra Alberts RD - 05/19/2019 2:31 PM CST Medical Nutrition Therapy Progress Note Significant Information: po intake 0-75% Relevant Medications: reviewed Relevant Labs: Most recent labs reviewed. CBC: Recent Labs Lab Units 05/18/19 1052 WBC X(10)9/L BLOOD x10E9/L 4.1* HGB GM/DL BLOOD gm/dL 8.1* HCT % BLOOD % 26.4* MCV FL BLOOD fl 97.1 RDW-CV % BLOOD % 13.[address] X(10)9/L BLOOD x10E9/L 275 .sm245 Weight: Admit Weight: 136 lb 1.6 oz (61.7 kg) Latest Weight: 129 lb 11.2 oz (58.8 kg) (05/19/19 0514) Weight Comment: weight fluctuations from 128 - 136# Diet Order: Dietary Orders (From admission, onward) Start Ordered 05/13/19 170 Nutritional supplement Nepro 2 times daily at breakfast and dinner End/Expires: Until Specified Question: Select Supplement: Answer: Nepro 05/13/19 1352 05/13/19 1700 Diet message 3 times daily with meals Comments: Cut meats End/Expires: Until Specified 05/13/19 1352 05/13/19 135 Adult Diet Therapeutic Diet; Renal with dialysis, Carb Controlled; 5 Carb/75gm/meal (2000 calories); Regular Texture (7 Regular); All Liquids (0 Thin) Diet effective now End/Expires: Until Specified Question Answer Comment Diet Type: Therapeutic Diet Therapeutic Diet: Renal with dialysis Therapeutic Diet: Carb Controlled Carbohydrate Controlled: 5 Carb/75gm/meal (2000 calories) Diet Texture: Regular Texture (7 Regular) Liquid Consistency All Liquids (0 Thin) Place order in third republican system. Done 05/13/19 1352 Nutrition Related Concerns: Poor Appetite Skin: Intact Energy Needs: Total Energy Estimated Needs: 30 calroies/kg (62) = 1860 + 500 for weight gain Total Protein Estimated Needs: 1.5 gm protien /kg = 93 Total Fluid Estimated Needs: 500 mL + output Nutrition Support: No Goals: PO intake > or = to 50-100 % most meals & snacks Care Plans: Plan of Care - Nutrition Care Plans (Notes for yesterday and today) 1 Author: Tara Alberts RD Service: -- Author Type: Registered Dietitian Filed: 05/19/2019 2:31 PM Date of Service: 05/19/2019 2:31 PM Status: Signed Unix Architect: Tara Alberts RD (Registered Dietitian) Problem: Inadequate or Predicted Suboptimal Energy or Oral Intake Description Related to:poor appetite, diet order As Evidenced By: pt report and po intake 50%; and diet order is written for 1800 calories Goal: Clinical Nutrition Goal Outcome: Progressing Flowsheets Taken 05/13/2019 1431 Primary Goal: Adequate Meals and Snack/Oral Nutrition Supplement Intake Primary Indicator/Monitor: po intake 50-100% Secondary Goal: Weight Gain Secondary Indicator/Monitor: 1/2-2# per week Taken 05/19/2019 1429 Primary Goal Progress: Ongoing Secondary Goal Progress: Ongoing Intervention: Medical Nutrition Therapy Interventions Flowsheets Taken 05/13/2019 1431 Meals and Snacks: Modify texture/distribution/nutrients (increase calories, and cut meats) Supplements: Commercial beverage/Oral Nutrition Supplement Taken 05/19/2019 1429 Coordination of Nutrition Care: Continue to Monitor Additional Comments/Recommendations: Pt refuses snacks. Is not drinking much of the nepro - will monitor Please encourage po intake and offer snacks. Monitor weights TARA ALBERTS RD 05/19/19 2:31 PM * Carmen Donato MD - 05/19/2019 1:41 PM CST Nephrology Progress Note Jules Mitchell [id number] Subjective: Patient seen and examined, denies fever, chills, chest pain, sob, cough, changes in appetite, N/V, diarrhea, abdominal pain, dysuria, hematuria, feeling stronger on rehab Objective: Vital signs: 05/17/191952 BP: 118/56 Pulse: 67 Resp: 16 Temp: 98.4 ??F (36.9 ??C) TempSrc: Oral SpO2: 100% Weight: Height: Physical Exam: General: awake and alert. In NAD Lungs: CTA B/L Heart: RRR, S1 and S2 without rubs Abdomen: Soft, NT/ND, + BS Ext: Without edema Labs: Recent Labs Lab Units 05/18/19 1052 05/15/19 0659 05/13/19 0500 SODIUM MMOL/L BLOOD mmol/L 134* 137 137 POTASSIUM MMOL/L BLOOD mmol/L 4.6 4.4 3.6 CHLORIDE mmol/L 95* 96* 96* CO2 mmol/L 25 30 26 BUN MG/DL BLOOD mg/dL 67* 45* 48* CREATININE mg/dL 7.31* 6.77* 5.64* GLUCOSE MG/DL BLOOD mg/dL 128* 131* 121* CALCIUM MG/DL BLOOD mg/dL 8.2* 8.2* 8.3* ANION GAP BLOOD mmol/L 14 11 15 Recent Labs Lab Units 05/18/19 1052 05/15/19 0659 05/13/19 0500 SODIUM MMOL/L BLOOD mmol/L 134* 137 137 POTASSIUM MMOL/L BLOOD mmol/L 4.6 4.4 3.6 CHLORIDE mmol/L 95* 96* 96* CO2 mmol/L 25 30 26 BUN MG/DL BLOOD mg/dL 67* 45* 48* CREATININE mg/dL 7.31* 6.77* 5.64* GLUCOSE MG/DL BLOOD mg/dL 128* 131* 121* CALCIUM MG/DL BLOOD mg/dL 8.2* 8.2* 8.3* Recent Labs Lab Units 05/18/19 1052 05/15/19 0659 05/13/19 0500 SODIUM MMOL/L BLOOD mmol/L 134* 137 137 POTASSIUM MMOL/L BLOOD mmol/L 4.6 4.4 3.6 CHLORIDE mmol/L 95* 96* 96* CO2 mmol/L 25 30 26 BUN MG/DL BLOOD mg/dL 67* 45* 48* CREATININE mg/dL 7.31* 6.77* 5.64* GLUCOSE MG/DL BLOOD mg/dL 128* 131* 121* CALCIUM MG/DL BLOOD mg/dL 8.2* 8.2* 8.3* Recent Labs Lab Units 05/18/19 1052 05/15/19 0659 05/13/19 0500 WBC X(10)9/L BLOOD x10E9/L 4.1* 5.7 5.9 HGB GM/DL BLOOD gm/dL 8.1* 7.9* 8.8* HCT % BLOOD % 26.4* 26.1* 29.1* PLT CT X(10)9/L BLOOD x10E9/L 275 218 267 Assessment/ Plan: Principal Problem: Toxic metabolic encephalopathy Active Problems: Debility Anemia of chronic renal failure Chronic kidney disease, Stage V Essential hypertension Hyperkalemia Hypervolemia Malignant neoplasm of prostate Moderate malnutrition Other hyperlipidemia Retention of urine Diastolic dysfunction Seroma Abnormality of gait End stage renal failure on dialysis Hyperglycemia LOS: 8 days Assessment/Plan ESRD: next dialysis on . HTN: reasonably controlled with dialysis Acute volume overload related to ESRD: compensated on dialysis and oral Lasix Anemia related to ESRD, iron deficiency: on iron replacment DM Left thigh seroma Hyperlipidemia:on statin Hyperkalemia from ESRD: on dialysis and this is better Generalized weakness from uremia: on rehab Metabolic acidosis: stable on dialysis Constipation: on bowel regimen Weakness: on rehab CARMEN DONATO MD * Mike Zamora MD - 05/18/2019 5:02 PM CST Images from the original note were not included. Rehabilitation Physician Progress Note Patient Name: Jules Mitchell Age: 73 y.o. Patient's Primary Care Physician: Dr. Kwame Berg LOS: 7 DAYS This was a face to face visit with the patient Seen and examined today for rehab and medical issues related to debility with encephalopathy. CC Patient reports loose stool, although none documented. HPI and Interval history: Watching pvrs-dced ditropan Less than 300 cc Tolerating HD Blood sugars are below 150 PVRs remain below 300 cc Subjective Review of Systems Denies chest pain, dyspnea or nausea. PHYSICAL EXAM: (Retired) Vitals (last 3 days) Date/Time Temp Pulse Resp BP SpO2 Weight 05/18/19 0855 -- 67 -- 105/57 95 % -- 05/18/19 0700 97.2 ??F (36.2 ??C) 74 16 98/58 97 % -- 05/18/19 0555 -- -- -- -- -- 134 lb 6.4 oz (61 kg) 05/17/191952 98.4 ??F (36.9 ??C) 67 16 118/56 100 % -- 05/17/19 0700 97 ??F (36.1 ??C) 64 18 114/64 100 % -- 05/17/19 0424 -- -- -- -- -- 129 lb 12.8 oz (58.9 kg) 05/16/192020 98.5 ??F (36.9 ??C) 70 20 116/63 100 % -- 05/16/19 1748 -- -- -- 127/83 -- -- 05/16/19819 -- 94 -- 102/63 98 % -- 05/16/19 0730 97.5 ??F (36.4 ??C) 80 18 (!) 83/57 98 % -- 05/15/192032 98.9 ??F (37.2 ??C) 62 20 115/60 100 % -- 05/15/19 1807 -- -- -- -- -- 128 lb 4 oz (58.2 kg) 05/15/19 0730 98.5 ??F (36.9 ??C) 69 16 122/69 98 % -- Blood sugars: POC Glucose POC Glucose 05/18/19 1649 122 05/18/19 1139 138 05/18/19 0700 113 05/17/19 2119 155 Weights (last 3 days) Date/Time Weight 05/18/19 0555 134 lb 6.4 oz (61 kg) 05/17/19 0424 129 lb 12.8 oz (58.9 kg) 05/15/19 1807 128 lb 4 oz (58.2 kg) GENERAL: Alert, in NAD HEENT: EOMI MMM NECK: no JVD LUNGS: Clear to auscultation CV: RR ABDOMEN: Soft NT to palpation EXTREMITIES: Less edema SKIN: No new issues TONE: normal MUSCULOSKELETAL: UE without weakness LLE with hip flexion, knee extension, ankle dorsiflexion NEURO: Lab Data Reviewed current lab results available to me today. Lab Results Component Value Date WBC 5.7 05/15/2019 HGB 7.9 (L) 05/15/2019 HCT 26.1 (L) 05/15/2019 MCV 98.5 (H) 05/15/2019 PLT 218 05/15/2019 Lab Results Component Value Date GLUCOSE 131 (H) 05/15/2019 CALCIUM 8.2 (L) 05/15/2019 NA 137 05/15/2019 K 4.4 05/15/2019 CO2 30 05/15/2019 CL 96 (L) 05/15/2019 BUN 45 (H) 05/15/2019 CREATININE 6.77 (H) 05/15/2019 ANIONGAP 11 05/15/2019 Imaging Reviewed current imaging results available to me today. No results found. Allergies No Known Allergies Medication List Scheduled/Continuous Medications Scheduled Medication Dose/Rate, Route, Frequency Last Action allopurinol (ZYLOPRIM) tablet 100 mg 100 mg, PO, Once a day Given: 05/18 913 atorvastatin (LIPITOR) tablet 20 mg 20 mg, PO, Once a day Given: 05/18 913 bisacodyl (DULCOLAX) suppository 10 mg 10 mg, RE, Once Ordered Diclofenac Sodium (VOLTAREN) 1 % gel 2 g 2 g, TOP, BID Given: 05/18 915 docusate sodium (COLACE) capsule 100 mg 100 mg, PO, Once a day Given: 05/18 914 donepezil (ARICEPT) tablet 10 mg 10 mg, PO, Nightly Given: 05/17 2034 epoetin ashly-epbx (RETACRIT) 4,000 Units 4,000 Units, SC, T-Th-Sat w/Dialysis Given: 05/18 143 folic acid (FOLVITE) tablet 1 mg 1 mg, PO, Once a day Given: 05/18 915 furosemide (LASIX) tablet 80 mg 80 mg, PO, BID DIURETIC Given: 05/18 913 heparin (porcine) injection 1,000 Units 1,000 Units, IK, 3x/week in HD Ordered heparin (porcine) injection 1,000 Units 1,000 Units, IK, 3x/week in HD Ordered heparin (porcine) injection 2,000 Units 2,000 Units, IV, During Dialysis Ordered heparin (porcine) injection 4,300 Units 4,300 Units, IV, 3x/week in HD Given by Other: 05/18 143 insulin lispro (HumaLOG) injection 0-6 Units 2 Units, SC, AC & HS Given - Witness Not Required:05/16 174 iron sucrose (VENOFER) injection 200 mg 200 mg, IV, During Dialysis Given by Other: 05/18 143 lidocaine (LIDOCARE) 4 % patch 2 patch 2 patch, TD, Once a day Medication Applied: 05/18 914 tamsulosin (FLOMAX) 24 hr capsule 0.4 mg 0.4 mg, PO, Nightly Given: 05/17 2034 Current Functional Status reviewed today: TRANSFERS: Sit to and from stand with close supervision (imrpoved from minimal assistance). Stand pivot transfer with close supervision (improved from minimal assistance). Car transfer with minimal assistance (no change). GAIT: Ambulates up to 160 feet with rolling walker and close supervision (improved from 31 feet with total assistance (minimal assistance + close wheelchair follow) using rolling walker). Ambulates across uneven surface with rolling walker and close supervision (improved from UNSAFE) BARRIERS: Cognitive impairments Assessment and Plan 1.Etiologic Diagnosis: Encephalopathy in setting of new renal failure-may have dementia-on aricept.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 Minimal assist required for expression and memory. 2. Gait disorder multifactorial. Endurance training progressing well. Patient is ambulating over 150' with RW and close supervision. 3. ESRD: HD per dr donato 4. Urinary retention, resolved. Off ditropan, all PVR's below 300 cc. Continuing Flomax. 5. Osteoarthritis: Voltaren gel, prn oral analgesics. 6. Dyslipidemia: continuing statin. 7. History ogf gout: Allopurinol. No new joint complaints. Co-Morbidities that are continuing to impact the rehab process: Problem List: 2019-04: Hyperglycemia 2019-04: Retention of urine 2019-04: Diastolic dysfunction 2019-04: Seroma 2019-04: Abnormality of gait 2019-04: Toxic metabolic encephalopathy 2019-04: End stage renal failure on dialysis 2019-04: Debility 2019-04: Moderate malnutrition 2019-04: Anemia of chronic renal failure 2019-04: Chronic kidney disease, Stage V 2019-04: Essential hypertension 2019-04: Hyperkalemia 2019-04: Hypervolemia 2019-04: Malignant neoplasm of prostate 2019-04: Other hyperlipidemia 2019-04: Metabolic acidosis 2019-04: Latent autoimmune diabetes mellitus in adult Continue therapies. Continue inpatient comprehensive interdisciplinary rehabilitation to address strengthening, mobility skills, self care, cognitive functioning, speech, communication and swallowing needs. The patient continues to require the interdisciplinary team approach and 24 hour monitoring. ADDITIONAL INFORMATION: left leg previous injury, ?seroma EDUCATION/PT TEACHING: therapy goals EQUIPMENT: TBD DESTINATION: home CANDI: 05/28/2019 FOLLOW UP PLANS: Dr Yehuda ZAMORA, MIKE Oro MD 05/18/19 5:02 PM * Carmen Donato MD - 05/18/2019 4:31 PM CST Nephrology Progress Note Jules Mitchell [id number] Subjective: Patient seen and examined in dialysis, denies fever, chills, chest pain, sob, cough, changes in appetite, N/V, diarrhea, abdominal pain, dysuria, hematuria, feeling stronger on rehab Objective: Vital signs: Vitals: 05/17/19 1953 05/18/19 0555 05/18/19 0700 05/18/19 0855 BP: 118/56 98/58 105/57 Pulse: 67 74 67 Resp: 16 16 Temp: 98.4 ??F (36.9 ??C) 97.2 ??F (36.2 ??C) TempSrc: Oral Oral SpO2: 100% 97% 95% Weight: 134 lb 6.4 oz (61 kg) Height: Weight: Wt Readings from Last 3 Encounters: 05/18/19 134 lb 6.4 oz (61 kg) Medications: Scheduled/Continuous Medications Scheduled Medication Dose/Rate, Route, Frequency Last Action allopurinol (ZYLOPRIM) tablet 100 mg 100 mg, PO, Once a day Given: 05/18 913 atorvastatin (LIPITOR) tablet 20 mg 20 mg, PO, Once a day Given: 05/18 913 bisacodyl (DULCOLAX) suppository 10 mg 10 mg, RE, Once Ordered Diclofenac Sodium (VOLTAREN) 1 % gel 2 g 2 g, TOP, BID Given: 05/18 915 docusate sodium (COLACE) capsule 100 mg 100 mg, PO, Once a day Given: 05/18 914 donepezil (ARICEPT) tablet 10 mg 10 mg, PO, Nightly Given: 05/17 2034 epoetin ashly-epbx (RETACRIT) 4,000 Units 4,000 Units, SC, T-Th-Sat w/Dialysis Given: 05/18 143 folic acid (FOLVITE) tablet 1 mg 1 mg, PO, Once a day Given: 05/18 915 furosemide (LASIX) tablet 80 mg 80 mg, PO, BID DIURETIC Given: 05/18 913 heparin (porcine) injection 1,000 Units 1,000 Units, IK, 3x/week in HD Ordered heparin (porcine) injection 1,000 Units 1,000 Units, IK, 3x/week in HD Ordered heparin (porcine) injection 2,000 Units 2,000 Units, IV, During Dialysis Ordered heparin (porcine) injection 4,300 Units 4,300 Units, IV, 3x/week in HD Given by Other: 05/18 143 insulin lispro (HumaLOG) injection 0-6 Units 2 Units, SC, AC & HS Given - Witness Not Required:05/16 174 iron sucrose (VENOFER) injection 200 mg 200 mg, IV, During Dialysis Given by Other: 05/18 1438 lidocaine (LIDOCARE) 4 % patch 2 patch 2 patch, TD, Once a day Medication Applied: 05/18 914 polyethylene glycol (MIRALAX) packet 17 g 17 g, PO, Once a day Given: 05/18 915 tamsulosin (FLOMAX) 24 hr capsule 0.4 mg 0.4 mg, PO, Nightly Given: 05/17 2034 Current Facility-Administered Medications: ??? acetaminophen (TYLENOL) tablet 325 mg, 325 mg, PO/Per Tube, Q6H PRN, Misty Hathaway MD, 325 mgat 05/11/192320 ??? allopurinol (ZYLOPRIM) tablet 100 mg, 100 mg, Oral, Once a day, Misty Hathaway MD, 100 mg at 05/18/19913 ??? atorvastatin (LIPITOR) tablet 20 mg, 20 mg, Oral, Once a day, Misty Hathaway MD, 20 mg at 05/18/19913 ??? bisacodyl (DULCOLAX) suppository 10 mg, 10 mg, Rectal, Once, Lucija Sadl, CORK COMPOUNDER ??? dextrose (GLUTOSE) 40 % oral gel 15 g, 15 g, Oral, PRN, Lucija Sadl, CORK COMPOUNDER ??? dextrose 5 % and sodium chloride 0.45 % infusion, 50 mL/hr, Intravenous, PRN, Lucija Sadl, CORK COMPOUNDER ??? dextrose 50 % IV solution 25 g, 25 g, Intravenous, PRN, Lucija Sadl, CORK COMPOUNDER ??? Diclofenac Sodium (VOLTAREN) 1 % gel 2 g, 2 g, Topical, 2 times per day, Manoj Sadl, CORK COMPOUNDER, 2 g at 05/18/19915 ??? docusate sodium (COLACE) capsule 100 mg, 100 mg, Oral, Once a day, Misty Hathaway MD, 100 mg at 05/18/19914 ??? donepezil (ARICEPT) tablet 10 mg, 10 mg, Oral, Nightly, Misty Hathaway MD, 10 mg at 05/17/192034 ??? epoetin ashly-epbx (RETACRIT) 4,000 Units, 4,000 Units, Subcutaneous, T--Fri w/Dialysis, Froy Donato MD, 4,000 Units at 05/18/19 1436 ??? folic acid (FOLVITE) tablet 1 mg, 1 mg, Oral, Once a day, Misty Hathaway MD, 1 mg at 05/18/19 0916 ??? furosemide (LASIX) tablet 80 mg, 80 mg, Oral, BID DIURETIC, Manoj Morrison NP, 80 mg at 05/18/19 0914 ??? glucagon (human recombinant) injection 1 mg, 1 mg, Intramuscular, PRN, Manoj Morrison NP ??? heparin (porcine) injection 1,000 Units, 1,000 Units, Intracatheter, Once per day on Fri, Debi Wetzel RN ??? heparin (porcine) injection 1,000 Units, 1,000 Units, Intracatheter, Once per day on Fri, Debi Wetzel RN ??? heparin (porcine) injection 2,000 Units, 2,000 Units, Intravenous, During Dialysis, Debi Wetzel RN ??? heparin (porcine) injection 4,300 Units, 4,300 Units, Intravenous, Once per day on Fri,Florencia Moulton MD, 4,300 Units at 05/18/19 1437 ? ? insulin lispro (HumaLOG) injection 0-6 Units, 0-6 Units, Subcutaneous, AC & HS, 2 Units at 05/16/19 1746 AND POCT glucose, , , AC & HS, Manoj Morrison NP ??? iron sucrose (VENOFER) injection 200 mg, 200 mg, Intravenous, During Dialysis, Carmen Donato MD, 200 mg at 05/18/19 1438 ??? lidocaine (LIDOCARE) 4 % patch 2 patch, 2 patch, Transdermal, Once a day, Manoj Morrison NP, 2 patch at 05/18/19 0915 ??? oxyCODONE-acetaminophen (PERCOCET) 5-325 MG 1 tablet, 1 tablet, Oral, Q6H PRN, Misty Hathaway MD, 1 tablet at 05/13/19 1753 ??? polyethylene glycol (MIRALAX) packet 17 g, 17 g, Oral, Once a day, Misty Hathaway MD, 17 g at 05/18/19 0916 ??? tamsulosin (FLOMAX) 24 hr capsule 0.4 mg, 0.4 mg, Oral, Nightly, Misty Hathaway MD, 0.4 mg at 05/17/192034 ??? acetaminophen ??? glucose ??? dextrose 5 % and sodium chloride 0.45 % ??? dextrose ??? glucagon ??? oxyCODONE-acetaminophen Physical Exam: General: awake and alert. In NAD Lungs: CTA B/L Heart: RRR, S1 and S2 without rubs Abdomen: Soft, NT/ND, + BS Ext: Without edema Labs: Recent Labs Lab Units 05/15/19 0659 05/13/19 0500 05/12/19 0530 SODIUM MMOL/L BLOOD mmol/L 137 137 139 POTASSIUM MMOL/L BLOOD mmol/L 4.4 3.6 3.9 CHLORIDE mmol/L 96* 96* 95* CO2 mmol/L 30 26 29 BUN MG/DL BLOOD mg/dL 45* 48* 29* CREATININE mg/dL 6.77* 5.64* 4.03* GLUCOSE MG/DL BLOOD mg/dL 131* 121* 119* CALCIUM MG/DL BLOOD mg/dL 8.2* 8.3* 8.9 ANION GAP BLOOD mmol/L 11 15 15 Recent Labs Lab Units 05/15/19 0659 05/13/19 0500 05/12/19 0530 SODIUM MMOL/L BLOOD mmol/L 137 137 139 POTASSIUM MMOL/L BLOOD mmol/L 4.4 3.6 3.9 CHLORIDE mmol/L 96* 96* 95* CO2 mmol/L 30 26 29 BUN MG/DL BLOOD mg/dL 45* 48* 29* CREATININE mg/dL 6.77* 5.64* 4.03* GLUCOSE MG/DL BLOOD mg/dL 131* 121* 119* CALCIUM MG/DL BLOOD mg/dL 8.2* 8.3* 8.9 Recent Labs Lab Units 05/15/19 0659 05/13/19 0500 05/12/19 0530 SODIUM MMOL/L BLOOD mmol/L 137 137 139 POTASSIUM MMOL/L BLOOD mmol/L 4.4 3.6 3.9 CHLORIDE mmol/L 96* 96* 95* CO2 mmol/L 30 26 29 BUN MG/DL BLOOD mg/dL 45* 48* 29* CREATININE mg/dL 6.77* 5.64* 4.03* GLUCOSE MG/DL BLOOD mg/dL 131* 121* 119* CALCIUM MG/DL BLOOD mg/dL 8.2* 8.3* 8.9 Recent Labs Lab Units 05/15/19 0659 05/13/19 0500 05/12/19 0530 WBC X(10)9/L BLOOD x10E9/L 5.7 5.9 6.6 HGB GM/DL BLOOD gm/dL 7.9* 8.8* 9.4* HCT % BLOOD % 26.1* 29.1* 31.2* PLT CT X(10)9/L BLOOD x10E9/L 218 267 273 Assessment/ Plan: Principal Problem: Toxic metabolic encephalopathy Active Problems: Debility Anemia of chronic renal failure Chronic kidney disease, Stage V Essential hypertension Hyperkalemia Hypervolemia Malignant neoplasm of prostate Moderate malnutrition Other hyperlipidemia Retention of urine Diastolic dysfunction Seroma Abnormality of gait End stage renal failure on dialysis Hyperglycemia LOS: 7 days Assessment/Plan ESRD: on dialysis now. HTN: reasonably controlled with dialysis Acute volume overload related to ESRD: compensated on dialysis and oral Lasix Anemia related to ESRD, iron deficiency: on iron replacment DM Left thigh seroma Hyperlipidemia:on statin Hyperkalemia from ESRD: on dialysis and this is better Generalized weakness from uremia: on rehab Metabolic acidosis: stable on dialysis Constipation: on bowel regimen Weakness: on rehab CARMEN DONATO MD * ALEIDA Phan - 05/18/2019 9:54 AM CST Images from the original note were not included. HOSPITALIST PROGRESS NOTE Patient Name: Jules Mitchell : 1945 Medical Record: [id number] Admit date 05/11/19 DATE OF SERVICE 05/18/2019 ATTENDING PHYSICIAN Florencia Moulton MD ? CHIEF COMPLAINT Principal Problem: Debility Active Problems: Type 2 diabetes mellitus Anemia of chronic renal failure Chronic kidney disease, Stage V Essential hypertension Hyperkalemia Hypervolemia Malignant neoplasm of prostate Moderate malnutrition Other hyperlipidemia Retention of urine Diastolic dysfunction Seroma Abnormality of gait Toxic metabolic encephalopathy ? HISTORY OF PRESENT ILLNESS ?? The patient is a 73 y.o. y/o male with history of f prostate cancer, DM, and HTN presents to the [facility] of intermittent left leg pain since last week. he has left sided buttock pain that radiates down posterior aspect of leg to knee. Hx coagulopathy, Hx venous thromboembolism. Pt was in acute renal failure with volume overload. Seen by renal , initiated dialysis , ?? currently here for therapy Todays chief Complains gen weakness Left leg pain ?? Confused about details of history ?? Duration of problems- Intensity Type Associated symptoms Aggrevating/relieving factors ? History also obtained from review of patients previous acute hospitalization chart, current rehabilitation chart , discussion with family members in the room and discussion with nursing staff taking care of the patient. ? SUBJECTIVE 05/13 initial progress note The patient is being seen for follow-up of all current problems, BP, BS , HR, labs and strength. Follow up on pain, swallowing, bladder and bowel function. Patient denies any chest pain, palpitations, shortness of breath, cough, abdominal pain, nausea, vomiting, diarrhea or constipation. No overnight events. Denies pain. Pain controlled on meds prescribed. Bowel movement 05/10. Lactulose ordered. Refused last night suppository. Had bm today 05/13 bp low bp 103/61 DC norvasc - hold lisinopril x 2 days Has 800 ml urine output with current urine agents- DC ditropan per PMR. Bladder scan [phone] ml had to be straight cath 800 ml out PVR 600 ml Due for dialysis today followed by Dr Donato Case discussed with Dr. Moulton, physiatry. Minh burns added Liver enzymes OK Seen by Neuropsych Appetite good and states slept well. Patient participating with therapy and is doing well. No further needs expressed at this time. 05/14 The patient is being seen for follow-up of all current problems, BP, BS , HR, labs and strength. Follow up on pain, swallowing, bladder and bowel function. Patient denies any chest pain, palpitations, shortness of breath, cough, abdominal pain, nausea, vomiting, diarrhea or constipation. No overnight events. 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 Pain controlled on meds prescribed. Bowel movement 05/13 x 2. Pt seen this am sitting up in chair working with Carlos therapy. Discussed pt with Carlos. Walking 100 ft with therapy, eager for exercises today. Requesting topical agent for L knee pain- voltaren gel ordered. Lidocaine patch for L thigh pain- edema improved. 1500 ml off with dialysis yesterday- tolerated. PVR 238-242-303 ml, continue with PVR another day. Weight 130 lb Sugars stable 119-135 Afebrile. HR 60s bp 119/60, 108/62. sats 100 % RA Atenolol held today. Decrease lisinopril to 2.5 Appetite good and states slept well. Patient participating with therapy and is doing well. No further needs expressed at this time. 05/15 The patient is being seen for follow-up of all current problems, BP, BS , HR, labs and strength. Follow up on pain, swallowing, bladder and bowel function. Patient denies any chest pain, palpitations, shortness of breath, cough, abdominal pain, nausea, vomiting, diarrhea or constipation. No overnight events. Denies pain. Pain controlled on meds prescribed. Pain better with lidocaine and voltaren gel. Bowel movement 05/13 bp soft this am- hold atenolol x 2 days Hold lasix and lisonopril DC atenolol- feels dizzy with therapy Notified Bandar Donato. Dc lisinopril, wants to continue lasix BID pvr 278 ml, 330-224. Has x 1 straigh cath last night with 300 ml out urine. No weight recorded this am Sugars [phone]- Dialysis today, BP still soft 90/51, HR 57-64. Holding atenolol x 2 days and held lasix and lisinopril this am. PVR 278 ml 330-224, was cath x 1 today with 300 ml out Appetite good and states slept well. Patient participating with therapy and is doing well. No further needs expressed at this time. BP low still down to 80s On dialysis Called and D/W Dr Donato - continue lasix Since pt having good urine out put ?? DC Lisinopril AND CHIVO I 05/16 The patient is being seen for follow-up of all current problems, BP, BS , HR, labs and strength. Follow up on pain, swallowing, bladder and bowel function. Patient denies any chest pain, palpitations, shortness of breath, cough, abdominal pain, nausea, vomiting, diarrhea or constipation. No overnight events. Denies pain. Pain controlled on meds prescribed. Bowel movement today. Pain better with patch. Has not taken percocet since 05/13 Afebrile. HR 90s-80 bp 102/63 sats 98% RA. Still off most BP meds-monitor. 2000 ml off with dialysis. PVR 122-159-0 ml. Weigth stable 128 lb. Pt seen sitting up in chair watching tv, L thigh edema down. Sugars [phone] Labs done 05/15. Appetite good and states slept well. Patient participating with therapy and is doing well. No further needs expressed at this time. 05/17 Patient seen and evaluated on daily rounds. No overnight events reported. Patient has been participating with therapy and is doing well. Pt seen today sitting up in wheelchair. Pt denies pain at thistime, well controlled with current medications. Slept well and appetite good. Last BM yesterday, noissues. Voiding well. Continue dialysis. Patient denies any chest pain, palpitations, shortness of breath, cough, abdominal pain, nausea and vomiting, or constipation. BP 114/64 without BP meds, HR 64. BG stable. No other needs or concerns expressed at this time. 05/18 Patient seen and evaluated on daily rounds. No overnight events reported. Patient has been participating with therapy and is doing well. Pt seen today sitting up in wheelchair. Pt denies pain at thistime, not requiring pain medications. Slept okay and appetite good. Last BM today, no issues. Voiding well. PVRs 127-234 ml. Patient denies any chest pain, palpitations, shortness of breath, cough, abdominal pain, nausea and vomiting, or constipation. BP 105/57, HR 67. BG stable. Anticipate dialysis with labs today. No other needs or concerns expressed at this time. REVIEW OF SYSTEMS General: no weight loss, [...] the other 14 organ systems are negative CURRENT MEDICATIONS Current Facility-Administered Medications: ??? acetaminophen (TYLENOL) tablet 325 mg, 325 mg, PO/Per Tube, Q6H PRN, Misty Hathaway MD, 325 mgat 05/11/192320 ??? allopurinol (ZYLOPRIM) tablet 100 mg, 100 mg, Oral, Once a day, Misty Hathaway MD, 100 mg at 05/18/19913 ??? atorvastatin (LIPITOR) tablet 20 mg, 20 mg, Oral, Once a day, Misty Hathwaay MD, 20 mg at 05/18/19913 ??? bisacodyl (DULCOLAX) suppository 10 mg, 10 mg, Rectal, Once, Manoj Morrison, [employer] ??? dextrose (GLUTOSE) 40 % oral gel 15 g, 15 g, Oral, PRN, Manoj Morrison, [employer] ??? dextrose 5 % and sodium chloride 0.45 % infusion, 50 mL/hr, Intravenous, PRN, Manoj Elliottl, [employer] ??? dextrose 50 % IV solution 25 g, 25 g, Intravenous, PRN, Manoj Elliottl, [employer] COMP[employer] ??? Diclofenac Sodium (VOLTAREN) 1 % gel 2 g, 2 g, Topical, 2 times per day, Manoj Morrison, C[employer] COMP[employer], 2 g at 05/18/19915 ??? docusate sodium (COLACE) capsule 100 mg, 100 mg, Oral, Once a day, Misty Hathaway MD, 100 mg at 05/18/19914 ??? donepezil (ARICEPT) tablet 10 mg, 10 mg, Oral, Nightly, Misty Hathaway MD, 10 mg at 05/17/192034 ??? epoetin ashly-epbx (RETACRIT) 4,000 Units, 4,000 Units, Subcutaneous, --Fri w/Dialysis, Froy Donato MD, 4,000 Units at 05/15/19 1204 ??? folic acid (FOLVITE) tablet 1 mg, 1 mg, Oral, Once a day, Misty Hathaway MD, 1 mg at 05/18/19 0916 ??? furosemide (LASIX) tablet 80 mg, 80 mg, Oral, BID DIURETIC, Manoj Morrison NP, 80 mg at 05/18/19 0914 ??? glucagon (human recombinant) injection 1 mg, 1 mg, Intramuscular, PRN, Manoj Morrison NP ??? heparin (porcine) injection 1,000 Units, 1,000 Units, Intracatheter, Once per day on Fri, Carmen Donato MD ??? heparin (porcine) injection 1,000 Units, 1,000 Units, Intracatheter, Once per day on Fri, Carmen Donato MD ??? heparin (porcine) injection 4,300 Units, 4,300 Units, Intravenous, Once per day on Fri,Florencia Moulton MD ? ? insulin lispro (HumaLOG) injection 0-6 Units, 0-6 Units, Subcutaneous, AC & HS, 2 Units at 05/16/19 1746 AND POCT glucose, , , AC & HS, Manoj Morrison NP ??? iron sucrose (VENOFER) injection 200 mg, 200 mg, Intravenous, During Dialysis, Carmen Donato MD, 200 mg at 05/15/19 1326 ??? lidocaine (LIDOCARE) 4 % patch 2 patch, 2 patch, Transdermal, Once a day, Manoj Morrison NP, 2 patch at 05/18/19 0915 ??? oxyCODONE-acetaminophen (PERCOCET) 5-325 MG 1 tablet, 1 tablet, Oral, Q6H PRN, Misty Hathaway MD, 1 tablet at 05/13/19 1753 ??? polyethylene glycol (MIRALAX) packet 17 g, 17 g, Oral, Once a day, Misty Hathaway MD, 17 g at 05/18/19 0916 ??? tamsulosin (FLOMAX) 24 hr capsule 0.4 mg, 0.4 mg, Oral, Nightly, Misty Hathaway MD, 0.4 mg at 05/17/192034 PHYSICAL EXAM WEIGHTS 136 lb 1 oz (61.7 kg) ?? General appearance: awake, alert, cooperative, no distress HEENT: Normocephalic, No icterus, No oral lesions, [...] without mass, non-tender, with normal bowel sounds, External Genitalia not examined, groin Extremities: no clubbing, cyanosis or edema, no calf tenderness Musculoskeletal:no swelling of joints.no redness, FROM otherjoints Psychologic: Mood and affect appropriate, no suicidal ideation. Skin: No rash, swelling or erythema identified . Warm and Dry, R chest dialysis cath with tegaderm dressing clean dry and intact. Neurologic/WHITESMITH:Alert & oriented x 2 confused at times, poor historian, Speech normal, Tongue and uvula central Strength is 4/5 in all extremities ?? No clonus Gait not tested ? Please see height, weight, and BP reported elsewhere as part of this encounter ?? LABS CBC: Recent Labs Lab Units 05/15/19 0659 WBC X(10)9/L BLOOD x10E9/L 5.7 HGB GM/DL BLOOD gm/dL 7.9* PLT CT X(10)9/L BLOOD x10E9/L 218 MCV FL BLOOD fl 98.5* BMP: Recent Labs Lab Units 05/15/19 0659 05/13/19 0500 SODIUM MMOL/L BLOOD mmol/L 137 137 POTASSIUM MMOL/L BLOOD mmol/L 4.4 3.6 CHLORIDE mmol/L 96* 96* CO2 mmol/L 30 26 BUN MG/DL BLOOD mg/dL 45* 48* CREATININE mg/dL 6.77* 5.64* GLUCOSE MG/DL BLOOD mg/dL 131* 121* CALCIUM MG/DL BLOOD mg/dL 8.2* 8.3* ALBUMIN GM/DL BLOOD gm/dL -- 3.4 DATA Vitals: 05/17/19 1953 05/18/19 0555 05/18/19 0700 05/18/19 0855 BP: 118/56 98/58 105/57 Pulse: 67 74 67 Resp: 16 16 Temp: 98.4 ??F (36.9 ??C) 97.2 ??F (36.2 ??C) TempSrc: Oral Oral SpO2: 100% 97% 95% Weight: 134 lb 6.4 oz (61 kg) Height: POC Glucose POC Glucose 05/18/19 0700 113 05/17/19 2119 155 05/17/19 1651 112 05/17/19 1148 119 Weights (last 3 days) Date/Time Weight 05/18/19 0555 134 lb 6.4 oz (61 kg) 05/17/19 0424 129 lb 12.8 oz (58.9 kg) 05/15/19 1807 128 lb 4 oz (58.2 kg) @ANTICOAGSUMMARY@ @FLOWDATE(2706:LAST)@ Intake/Output Summary (Last 24 hours) at 05/18/2019 0954 Last data filed at 05/18/2019 0700 Gross per 24 hour Intake 480 ml Output -- Net 480 ml IMAGING STUDIES & OTHER STUDIES ?? ASSESSMENT AND PLAN Principal Problem: Toxic metabolic encephalopathy Active Problems: Debility Anemia of chronic renal failure Chronic kidney disease, Stage V Essential hypertension Hyperkalemia Hypervolemia Malignant neoplasm of prostate Moderate malnutrition Other hyperlipidemia Retention of urine Diastolic dysfunction Seroma Abnormality of gait End stage renal failure on dialysis Hyperglycemia Debility Active Problems: Type 2 diabetes mellitus Anemia of chronic renal failure Chronic kidney disease, Stage V Essential hypertension Hyperkalemia Hypervolemia Malignant neoplasm of prostate Moderate malnutrition Other hyperlipidemia Retention of urine Diastolic dysfunction Seroma Abnormality of gait Toxic metabolic encephalopathy Acute renal failure, CKD LE edema ESRD,with volume overload, on dialysis now Renal consulted Echo done 04/29 Still on lasix 80 bid watch BP 05/[address] Donato, dialysis today 05/14 PVR 238-242-303 ml, continue with PVR another day. Weight 130 lb 05/15 bun 45 cr 6.77 Diastolic grade 1 heart failure Ef 60% per echo 04/29 Lasix, dialysis 05/14 weight 130 lb 05/16 wt 128 lb L thigh seroma Dopplers done 04/29 negative for dvt Hypertension,/ hypotension / bradycardia Continue meds 05/13 bp 103/61 on norvasc, tenormin , lasix 80 bid, lisinopril 5 DC norvasc - parameters added to bp meds Hold lisinopril x 2 days 05/14 Decrease lisinopril to 2.5. bp 108/60 DC atenolol HR 55-64 DC lisimopril 05/15 bp 90/51 05/16 bp 115/60, 102/63, 83/55, 127/83 hr 80-94 05/17 BP 114/64, stable at this time Hyperkalemia, related to the chronic kidney disease, on dialysis 05/13 k 3.6 05/15 k 4.4 Hypocalcemia 05/15 ca 8.2 Gout allopurinol Metabolic acidosis, from the renal failure, better with dialysis Anemia, most recent hemoglobin 8.7, , monitor H/H 05/13 h and h 8.8/ 29.1 05/15 h and h 7.9/ 26.1 Vit b 12 349 Epoetin per renal and IV venofer Altered sugars aacu, SSI 05/13 poct 121 05/14 poct 119-135 05/15 Sugars [phone] 05/16 Sugars [phone] 05/17 bg 112-173, stable at this time ?? h/oProstate cancer Bladder management / hx of orchiectomy / urine retention in acutre Voiding ok Ditropan and flomax 05/13 had high volume PVR , dc ditropan. 05/16 PVR los volumes 122-159-0 ml last night 05/18 PVRs 127-234, will monitor Dementia/ cognitive impairment aricept neuropsych consult DVT prophylaxis: on Lovenox Minh hose Echo 05/01/19: Mild concentric left ventricular hypertrophy. Impaired diastolic relaxation Grade I. Ejection fraction is visually estimated at 60 %. There is mild enlargement of left atrium. Mild aortic valve regurgitation. ?? Pain management Today's pain score 0 05/13 percocet 6 q 6 prn, tylenol Lidocaine patch and voltaren 05/18 denies pain ?? Bowel management . Titrate bowel medications for constipation/diarrhea. 05/13 had bm ?? Full Resuscitation ? Electronically signed by: TITA VARGAS ARNP, 05/18/2019 9:54 AM Cosigned by Misty Hathaway MD at 05/25/2019 12:19 AM GLOVE [employer]GER Associated attestation - Misty Hathaway MD - 05/25/2019 1:19 AM EST The patient is being seen for follow-up of all current problems, BP, BS , HR, labs and strength. Follow up on pain, swallowing, bladder and bowel function. Strength improving, able to do therapy ok. I saw, evaluated and examined the patient face to face in conjunction with the CORK COMPOUNDER and agree with the management and disposition of the patient. History also obtained from Nurse and staff about how the patient did overnight and during the day. I performed mario portions of the follow up history, examination, review of labs and radiology and evaluation. I agree with the subjective, physical exam and assessment and plan details as outlined in the note below. Discussed the mario medical decision making- both assessment and plan, rehabilitation goals and treatment plan with patient, CORK COMPOUNDER , nursing staff, farm operator and the members of the team. * Carmen Donato MD - 05/17/2019 6:29 PM CST Nephrology Progress Note Jules Mitchell [id number] Subjective: Patient seen and examined, denies fever, chills, chest pain, sob, cough, changes in appetite, N/V, diarrhea, abdominal pain, dysuria, hematuria, feeling stronger on rehab Objective: Vital signs: 05/17/191952 BP: 118/56 Pulse: 67 Resp: 16 Temp: 98.4 ??F (36.9 ??C) TempSrc: Oral SpO2: 100% Weight: Height: Physical Exam: General: awake and alert. In NAD Lungs: CTA B/L Heart: RRR, S1 and S2 without rubs Abdomen: Soft, NT/ND, + BS Ext: Without edema Labs: Recent Labs Lab Units 05/15/19 0659 05/13/19 0500 05/12/19 0530 SODIUM MMOL/L BLOOD mmol/L 137 137 139 POTASSIUM MMOL/L BLOOD mmol/L 4.4 3.6 3.9 CHLORIDE mmol/L 96* 96* 95* CO2 mmol/L 30 26 29 BUN MG/DL BLOOD mg/dL 45* 48* 29* CREATININE mg/dL 6.77* 5.64* 4.03* GLUCOSE MG/DL BLOOD mg/dL 131* 121* 119* CALCIUM MG/DL BLOOD mg/dL 8.2* 8.3* 8.9 ANION GAP BLOOD mmol/L 11 15 15 Recent Labs Lab Units 05/15/19 0659 05/13/19 0500 05/12/19 0530 SODIUM MMOL/L BLOOD mmol/L 137 137 139 POTASSIUM MMOL/L BLOOD mmol/L 4.4 3.6 3.9 CHLORIDE mmol/L 96* 96* 95* CO2 mmol/L 30 26 29 BUN MG/DL BLOOD mg/dL 45* 48* 29* CREATININE mg/dL 6.77* 5.64* 4.03* GLUCOSE MG/DL BLOOD mg/dL 131* 121* 119* CALCIUM MG/DL BLOOD mg/dL 8.2* 8.3* 8.9 Recent Labs Lab Units 05/15/19 0659 05/13/19 0500 05/12/19 0530 SODIUM MMOL/L BLOOD mmol/L 137 137 139 POTASSIUM MMOL/L BLOOD mmol/L 4.4 3.6 3.9 CHLORIDE mmol/L 96* 96* 95* CO2 mmol/L 30 26 29 BUN MG/DL BLOOD mg/dL 45* 48* 29* CREATININE mg/dL 6.77* 5.64* 4.03* GLUCOSE MG/DL BLOOD mg/dL 131* 121* 119* CALCIUM MG/DL BLOOD mg/dL 8.2* 8.3* 8.9 Recent Labs Lab Units 05/15/19 0659 05/13/19 0500 05/12/19 0530 WBC X(10)9/L BLOOD x10E9/L 5.7 5.9 6.6 HGB GM/DL BLOOD gm/dL 7.9* 8.8* 9.4* HCT % BLOOD % 26.1* 29.1* 31.2* PLT CT X(10)9/L BLOOD x10E9/L 218 267 273 Assessment/ Plan: Principal Problem: Toxic metabolic encephalopathy Active Problems: Debility Anemia of chronic renal failure Chronic kidney disease, Stage V Essential hypertension Hyperkalemia Hypervolemia Malignant neoplasm of prostate Moderate malnutrition Other hyperlipidemia Retention of urine Diastolic dysfunction Seroma Abnormality of gait End stage renal failure on dialysis Hyperglycemia LOS: 7 days Assessment/Plan ESRD: next dialysis on Friday. HTN: reasonably controlled with dialysis Acute volume overload related to ESRD: compensated on dialysis and oral Lasix Anemia related to ESRD, iron deficiency: on iron replacment DM Left thigh seroma Hyperlipidemia:on statin Hyperkalemia from ESRD: on dialysis and this is better Generalized weakness from uremia: on rehab Metabolic acidosis: stable on dialysis Constipation: on bowel regimen Weakness: on rehab CARMEN DONATO MD * ALEIDA Phan - 05/17/2019 5:02 PM CST Images from the original note were not included. HOSPITALIST PROGRESS NOTE Patient Name: Jules Mitchell : 1945 Medical Record: [id number] Admit date 05/11/19 DATE OF SERVICE 05/17/2019 ATTENDING PHYSICIAN Florencia Moulton MD ? CHIEF COMPLAINT Principal Problem: Debility Active Problems: Type 2 diabetes mellitus Anemia of chronic renal failure Chronic kidney disease, Stage V Essential hypertension Hyperkalemia Hypervolemia Malignant neoplasm of prostate Moderate malnutrition Other hyperlipidemia Retention of urine Diastolic dysfunction Seroma Abnormality of gait Toxic metabolic encephalopathy ? HISTORY OF PRESENT ILLNESS ?? The patient is a 73 y.o. y/o male with history of f prostate cancer, DM, and HTN [facility] intermittent left leg pain since last week. he has left sided buttock pain that radiates down posterior aspect of leg to knee. Hx coagulopathy, Hx venous thromboembolism. Pt was in acute renal failure with volume overload. Seen by renal , initiated dialysis , ?? currently here for therapy Todays chief Complains gen weakness Left leg pain ?? Confused about details of history ?? Duration of problems- Intensity Type Associated symptoms Aggrevating/relieving factors ? History also obtained from review of patients previous acute hospitalization chart, current rehabilitation chart , discussion with family members in the room and discussion with nursing staff taking care of the patient. ? SUBJECTIVE 05/13 initial progress note The patient is being seen for follow-up of all current problems, BP, BS , HR, labs and strength. Follow up on pain, swallowing, bladder and bowel function. Patient denies any chest pain, palpitations, shortness of breath, cough, abdominal pain, nausea, vomiting, diarrhea or constipation. No overnight events. Denies pain. Pain controlled on meds prescribed. Bowel movement 05/10. Lactulose ordered. Refused last night suppository. Had bm today 05/13 bp low bp 103/61 DC norvasc - hold lisinopril x 2 days Has 800 ml urine output with current urine agents- DC ditropan per PMR. Bladder scan [phone] ml had to be straight cath 800 ml out PVR 600 ml Due for dialysis today followed by Dr Donato Case discussed with Dr. Moulton, physiatry. Minh burns added Liver enzymes OK Seen by Neuropsych Appetite good and states slept well. Patient participating with therapy and is doing well. No further needs expressed at this time. 05/14 The patient is being seen for follow-up of all current problems, BP, BS , HR, labs and strength. Follow up on pain, swallowing, bladder and bowel function. Patient denies any chest pain, palpitations, shortness of breath, cough, abdominal pain, nausea, vomiting, diarrhea or constipation. No overnight events. 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 Pain controlled on meds prescribed. Bowel movement 05/13 x 2. Pt seen this am sitting up in chair working with [employer]. Discussed pt with [employer]. Walking 100 ft with therapy, eager for exercises today. Requesting topical agent for L knee pain- voltaren gel ordered. Lidocaine patch for L thigh pain- edema improved. 1500 ml off with dialysis yesterday- tolerated. PVR 238-242-303 ml, continue with PVR another day. Weight 130 lb Sugars stable 119-135 Afebrile. HR 60s bp 119/60, 108/62. sats 100 % RA Atenolol held today. Decrease lisinopril to 2.5 Appetite good and states slept well. Patient participating with therapy and is doing well. No further needs expressed at this time. 05/15 The patient is being seen for follow-up of all current problems, BP, BS , HR, labs and strength. Follow up on pain, swallowing, bladder and bowel function. Patient denies any chest pain, palpitations, shortness of breath, cough, abdominal pain, nausea, vomiting, diarrhea or constipation. No overnight events. Denies pain. Pain controlled on meds prescribed. Pain better with lidocaine and voltaren gel. Bowel movement 05/13 bp soft this am- hold atenolol x 2 days Hold lasix and lisonopril DC atenolol- feels dizzy with therapy Notified Bandar Donato. Dc lisinopril, wants to continue lasix BID pvr 278 ml, 330-224. Has x 1 straigh cath last night with 300 ml out urine. No weight recorded this am Sugars [phone]- Dialysis today, BP still soft 90/51, HR 57-64. Holding atenolol x 2 days and held lasix and lisinopril this am. PVR 278 ml 330-224, was cath x 1 today with 300 ml out Appetite good and states slept well. Patient participating with therapy and is doing well. No further needs expressed at this time. BP low still down to 80s On dialysis Called and D/W Dr Donato - continue lasix Since pt having good urine out put ?? DC Lisinopril AND CHIVO I 05/16 The patient is being seen for follow-up of all current problems, BP, BS , HR, labs and strength. Follow up on pain, swallowing, bladder and bowel function. Patient denies any chest pain, palpitations, shortness of breath, cough, abdominal pain, nausea, vomiting, diarrhea or constipation. No overnight events. Denies pain. Pain controlled on meds prescribed. Bowel movement today. Pain better with patch. Has not taken percocet since 05/13 Afebrile. HR 90s-80 bp 102/63 sats 98% RA. Still off most BP meds-monitor. 2000 ml off with dialysis. PVR 122-159-0 ml. Weigth stable 128 lb. Pt seen sitting up in chair watching tv, L thigh edema down. Sugars [phone] Labs done 05/15. Appetite good and states slept well. Patient participating with therapy and is doing well. No further needs expressed at this time. 05/17 Patient seen and evaluated on daily rounds. No overnight events reported. Patient has been participating with therapy and is doing well. Pt seen today sitting up in wheelchair. Pt denies pain at thistime, well controlled with current medications. Slept well and appetite good. Last BM yesterday, noissues. Voiding well. Continue dialysis. Patient denies any chest pain, palpitations, shortness of breath, cough, abdominal pain, nausea and vomiting, or constipation. BP 114/64 without BP meds, HR 64. BG stable. No other needs or concerns expressed at this time. REVIEW OF SYSTEMS General: no weight loss, [...] the other 14 organ systems are negative CURRENT MEDICATIONS Current Facility-Administered Medications: ??? acetaminophen (TYLENOL) tablet 325 mg, 325 mg, PO/Per Tube, Q6H PRN, Misty Hathaway MD, 325 mgat 05/11/19 2321 ??? allopurinol (ZYLOPRIM) tablet 100 mg, 100 mg, Oral, Once a day, Misty Hathaway MD, 100 mg at 05/17/19 1000 ??? atorvastatin (LIPITOR) tablet 20 mg, 20 mg, Oral, Once a day, Misty Hathaway MD, 20 mg at 05/17/19 1000 ??? bisacodyl (DULCOLAX) suppository 10 mg, 10 mg, Rectal, Once, Manoj Morrison NP ??? dextrose (GLUTOSE) 40 % oral gel 15 g, 15 g, Oral, PRN, aMnoj Morrison NP ??? dextrose 5 % and sodium chloride 0.45 % infusion, 50 mL/hr, Intravenous, PRN, Manoj Morrison NP ??? dextrose 50 % IV solution 25 g, 25 g, Intravenous, PRN, Manoj Morrison NP ??? Diclofenac Sodium (VOLTAREN) 1 % gel 2 g, 2 g, Topical, 2 times per day, Manoj Morrison NP, 2 g at 05/16/192034 ??? docusate sodium (COLACE) capsule 100 mg, 100 mg, Oral, Once a day, Misty Hathaway MD, 100 mg at 05/17/19 1000 ??? donepezil (ARICEPT) tablet 10 mg, 10 mg, Oral, Nightly, Misty Hathaway MD, 10 mg at 05/16/192035 ??? epoetin ashly-epbx (RETACRIT) 4,000 Units, 4,000 Units, Subcutaneous, w/Dialysis, Froy Donato MD, 4,000 Units at 05/15/19 1204 ??? folic acid (FOLVITE) tablet 1 mg, 1 mg, Oral, Once a day, Misty Hathaway MD, 1 mg at 05/17/19 1001 ??? furosemide (LASIX) tablet 80 mg, 80 mg, Oral, BID DIURETIC, Manoj Morrison NP, 80 mg at 05/17/19 1619 ??? glucagon (human recombinant) injection 1 mg, 1 mg, Intramuscular, PRN, Manoj Morrison NP ??? heparin (porcine) injection 1,000 Units, 1,000 Units, Intracatheter, Once per day on Fri, Carmen Donato MD ??? heparin (porcine) injection 1,000 Units, 1,000 Units, Intracatheter, Once per day on Fri, Carmen Donato MD ??? [START ON 05/18/2019] heparin (porcine) injection 4,300 Units, 4,300 Units, Intravenous, Once per day on Fri, Florencia Moulton MD ? ? insulin lispro (HumaLOG) injection 0-6 Units, 0-6 Units, Subcutaneous, AC & HS, 2 Units at 05/16/19 1746 AND POCT glucose, , , AC & HS, Manoj Morrison, NEENA ??? iron sucrose (VENOFER) injection 200 mg, 200 mg, Intravenous, During Dialysis, Carmen Donato MD, 200 mg at 05/15/19 1326 ??? lidocaine (LIDOCARE) 4 % patch 2 patch, 2 patch, Transdermal, Once a day, Manoj Morrison NP, 2 patch at 05/16/19 0951 ??? oxyCODONE-acetaminophen (PERCOCET) 5-325 MG 1 tablet, 1 tablet, Oral, Q6H PRN, Misty Hathaway MD, 1 tablet at 05/13/19 1753 ??? polyethylene glycol (MIRALAX) packet 17 g, 17 g, Oral, Once a day, Misty Hathaway MD, 17 g at 05/15/19 0827 ??? tamsulosin (FLOMAX) 24 hr capsule 0.4 mg, 0.4 mg, Oral, Nightly, Misty Hathaway MD, 0.4 mg at 05/16/192035 PHYSICAL EXAM WEIGHTS 136 lb 1 oz (61.7 kg) ?? General appearance: awake, alert, cooperative, no distress HEENT: Normocephalic, No icterus, No oral lesions, [...] without mass, non-tender, with normal bowel sounds, External Genitalia not examined, groin Extremities: no clubbing, cyanosis or edema, no calf tenderness Musculoskeletal:no swelling of joints.no redness, FROM otherjoints Psychologic: Mood and affect appropriate, no suicidal ideation. Skin: No rash, swelling or erythema identified . Warm and Dry, R chest dialysis cath with tegaderm dressing clean dry and intact. Neurologic/WHITESMITH:Alert & oriented x 2 confused at times, poor historian, Speech normal, Tongue and uvula central Strength is 4/5 in all extremities ?? No clonus Gait not tested ? Please see height, weight, and BP reported elsewhere as part of this encounter ?? LABS CBC: Recent Labs Lab Units 05/15/19 0659 WBC X(10)9/L BLOOD x10E9/L 5.7 HGB GM/DL BLOOD gm/dL 7.9* PLT CT X(10)9/L BLOOD x10E9/L 218 MCV FL BLOOD fl 98.5* BMP: Recent Labs Lab Units 05/15/19 0659 05/13/19 0500 SODIUM MMOL/L BLOOD mmol/L 137 137 POTASSIUM MMOL/L BLOOD mmol/L 4.4 3.6 CHLORIDE mmol/L 96* 96* CO2 mmol/L 30 26 BUN MG/DL BLOOD mg/dL 45* 48* CREATININE mg/dL 6.77* 5.64* GLUCOSE MG/DL BLOOD mg/dL 131* 121* CALCIUM MG/DL BLOOD mg/dL 8.2* 8.3* ALBUMIN GM/DL BLOOD gm/dL -- 3.4 DATA Vitals: 05/16/19 1748 05/16/19 20205/17/19 0424 05/17/19 0700 BP: 127/83 116/63 114/64 Pulse: 70 64 Resp: 20 18 Temp: 98.5 ??F (36.9 ??C) 97 ??F (36.1 ??C) TempSrc: Oral Oral SpO2: 100% 100% Weight: 129 lb 12.8 oz (58.9 kg) Height: POC Glucose POC Glucose 05/17/19 1651 112 05/17/19 1148 119 05/17/19 0705 124 05/16/19 2100 173 Weights (last 3 days) Date/Time Weight 05/17/19 0424 129 lb 12.8 oz (58.9 kg) 05/15/19 1807 128 lb 4 oz (58.2 kg) 05/14/19 0614 130 lb 3.2 oz (59.1 kg) @ANTICOAGSUMMARY@ @FLOWDATE(2706:LAST)@ Intake/Output Summary (Last 24 hours) at 05/17/2019 1702 Last data filed at 05/17/2019 1200 Gross per 24 hour Intake 360 ml Output -- Net 360 ml IMAGING STUDIES & OTHER STUDIES ?? ASSESSMENT AND PLAN Principal Problem: Toxic metabolic encephalopathy Active Problems: Debility Anemia of chronic renal failure Chronic kidney disease, Stage V Essential hypertension Hyperkalemia Hypervolemia Malignant neoplasm of prostate Moderate malnutrition Other hyperlipidemia Retention of urine Diastolic dysfunction Seroma Abnormality of gait End stage renal failure on dialysis Hyperglycemia Debility Active Problems: Type 2 diabetes mellitus Anemia of chronic renal failure Chronic kidney disease, Stage V Essential hypertension Hyperkalemia Hypervolemia Malignant neoplasm of prostate Moderate malnutrition Other hyperlipidemia Retention of urine Diastolic dysfunction Seroma Abnormality of gait Toxic metabolic encephalopathy Acute renal failure, CKD LE edema ESRD,with volume overload, on dialysis now Renal consulted Echo done 04/29 Still on lasix 80 bid watch BP 05/[address] Donato, dialysis today 05/14 PVR 238-242-303 ml, continue with PVR another day. Weight 130 lb 05/15 bun 45 cr 6.77 Diastolic grade 1 heart failure Ef 60% per echo 04/29 Lasix, dialysis 05/14 weight 130 lb 05/16 wt 128 lb L thigh seroma Dopplers done 04/29 negative for dvt Hypertension,/ hypotension / bradycardia Continue meds 05/13 bp 103/61 on norvasc, tenormin , lasix 80 bid, lisinopril 5 DC norvasc - parameters added to bp meds Hold lisinopril x 2 days 05/14 Decrease lisinopril to 2.5. bp 108/60 DC atenolol HR 55-64 DC lisimopril 05/15 bp 90/51 05/16 bp 115/60, 102/63, 83/55, 127/83 hr 80-94 05/17 BP 114/64, stable at this time Hyperkalemia, related to the chronic kidney disease, on dialysis 05/13 k 3.6 05/15 k 4.4 Hypocalcemia 05/15 ca 8.2 Gout allopurinol Metabolic acidosis, from the renal failure, better with dialysis Anemia, most recent hemoglobin 8.7, , monitor H/H 05/13 h and h 8.8/ 29.1 05/15 h and h 7.9/ 26.1 Vit b 12 349 Epoetin per renal and IV venofer Altered sugars aacu, SSI 05/13 poct 121 05/14 poct 119-135 05/15 Sugars [phone] 05/16 Sugars [phone] 05/17 bg 112-173, stable at this time ?? h/oProstate cancer Bladder management / hx of orchiectomy / urine retention in acutre Voiding ok Ditropan and flomax 05/13 had high volume PVR , dc ditropan. 05/16 PVR los volumes 122-159-0 ml last night Dementia/ cognitive impairment aricept neuropsych consult DVT prophylaxis: on Lovenox Minh hose Echo 05/01/19: Mild concentric left ventricular hypertrophy. Impaired diastolic relaxation Grade I. Ejection fraction is visually estimated at 60 %. There is mild enlargement of left atrium. Mild aortic valve regurgitation. ?? Pain management Today's pain score 0 05/13 percocet 6 q 6 prn, tylenol Lidocaine patch and voltaren ?? Bowel management . Titrate bowel medications for constipation/diarrhea. 05/13 had bm ?? Full Resuscitation ? Electronically signed by: TITA VARGAS ARNP, 05/17/2019 5:02 PM Cosigned by Misty Hathaway MD at 05/25/2019 12:20 AM GLOVE TAGGER Associated attestation - Misty Hathaway MD - 05/25/2019 1:20 AM EST The patient is being seen for follow-up of all current problems, BP, BS , HR, labs and strength. Follow up on pain, swallowing, bladder and bowel function. Strength improving, able to do therapy ok. I saw, evaluated and examined the patient face to face in conjunction with the CORK COMPOUNDER and agree with the management and disposition of the patient. History also obtained from Nurse and staff about how the patient did overnight and during the day. I performed mario portions of the follow up history, examination, review of labs and radiology and evaluation. I agree with the subjective, physical exam and assessment and plan details as outlined in the note below. Discussed the mario medical decision making- both assessment and plan, rehabilitation goals and treatment plan with patient, CORK COMPOUNDER , nursing staff, farm operator and the members of the team. * Mike Zamora MD - 05/17/2019 4:03 PM CST Images from the original note were not included. Rehabilitation Physician Progress Note Patient Name: Jules Mitchell Age: 73 y.o. Patient's Primary Care Physician: Dr. Kwame Berg LOS: 6 DAYS This was a face to face visit with the patient Seen and examined today for rehab and medical issues related to debility with encephalopathy. CC Patient denies new concerns, reports BM yesterday. HPI and Interval history: Watching pvrs-dced ditropan Less than 300 cc Tolerating HD Blood sugars are below 150 PVRs remain below 300 cc Subjective Review of Systems Denies chest pain, dyspnea or nausea. PHYSICAL EXAM: (Retired) Vitals (last 3 days) Date/Time Temp Pulse Resp BP SpO2 Weight 05/17/19 0700 97 ??F (36.1 ??C) 64 18 114/64 100 % -- 05/17/19 0424 -- -- -- -- -- 129 lb 12.8 oz (58.9 kg) 05/16/192020 98.5 ??F (36.9 ??C) 70 20 116/63 100 % -- 05/16/19 1748 -- -- -- 127/83 -- -- 05/16/19 08 -- 94 -- 102/63 98 % -- 05/16/19 0730 97.5 ??F (36.4 ??C) 80 18 (!) 83/57 98 % -- 05/15/192032 98.9 ??F (37.2 ??C) 62 20 115/60 100 % -- 05/15/19 1807 -- -- -- -- -- 128 lb 4 oz (58.2 kg) 05/15/19 0730 98.5 ??F (36.9 ??C) 69 16 122/69 98 % -- 05/14/192011 98.5 ??F (36.9 ??C) 57 16 90/51 100 % -- 05/14/19 0823 -- 64 -- 108/62 -- -- 05/14/19 0700 97.2 ??F (36.2 ??C) 64 18 108/62 100 % -- 05/14/19 0614 -- -- -- -- -- 130 lb 3.2 oz (59.1 kg) Blood sugars: POC Glucose POC Glucose 05/17/19 1148 119 05/17/19 0705 124 05/16/19 2100 173 Weights (last 3 days) Date/Time Weight 05/17/19 0424 129 lb 12.8 oz (58.9 kg) 05/15/19 1807 128 lb 4 oz (58.2 kg) 05/14/19 0614 130 lb 3.2 oz (59.1 kg) GENERAL: Alert, in NAD HEENT: EOMI MMM NECK: no JVD LUNGS: Clear to auscultation CV: RR ABDOMEN: Soft NT to palpation EXTREMITIES: Less edema SKIN: No new issues TONE: normal MUSCULOSKELETAL: UE without weakness LLE with hip flexion, knee extension, ankle dorsiflexion NEURO: Lab Data Reviewed current lab results available to me today. Lab Results Component Value Date WBC 5.7 05/15/2019 HGB 7.9 (L) 05/15/2019 HCT 26.1 (L) 05/15/2019 MCV 98.5 (H) 05/15/2019 PLT 218 05/15/2019 Lab Results Component Value Date GLUCOSE 131 (H) 05/15/2019 CALCIUM 8.2 (L) 05/15/2019 NA 137 05/15/2019 K 4.4 05/15/2019 CO2 30 05/15/2019 CL 96 (L) 05/15/2019 BUN 45 (H) 05/15/2019 CREATININE 6.77 (H) 05/15/2019 ANIONGAP 11 05/15/2019 Imaging Reviewed current imaging results available to me today. No results found. Allergies No Known Allergies Medication List Scheduled/Continuous Medications Scheduled Medication Dose/Rate, Route, Frequency Last Action allopurinol (ZYLOPRIM) tablet 100 mg 100 mg, PO, Once a day Given: 05/17 999 atorvastatin (LIPITOR) tablet 20 mg 20 mg, PO, Once a day Given: 05/17 999 bisacodyl (DULCOLAX) suppository 10 mg 10 mg, RE, Once Ordered Diclofenac Sodium (VOLTAREN) 1 % gel 2 g 2 g, TOP, BID Given: 05/16 2034 docusate sodium (COLACE) capsule 100 mg 100 mg, PO, Once a day Given: 05/17 999 donepezil (ARICEPT) tablet 10 mg 10 mg, PO, Nightly Given: 05/16 2035 epoetin ashly-epbx (RETACRIT) 4,000 Units 4,000 Units, SC, T-Th-Sat w/Dialysis Given: 05/15 1204 folic acid (FOLVITE) tablet 1 mg 1 mg, PO, Once a day Given: 05/17 1001 furosemide (LASIX) tablet 80 mg 80 mg, PO, BID DIURETIC Given: 05/17 0959 heparin (porcine) injection 1,000 Units 1,000 Units, IK, 3x/week in HD Ordered heparin (porcine) injection 1,000 Units 1,000 Units, IK, 3x/week in HD Ordered heparin (porcine) injection 4,300 Units 4,300 Units, IV, 3x/week in HD Ordered insulin lispro (HumaLOG) injection 0-6 Units 2 Units, SC, AC & HS Given - Witness Not Required:05/16 174 iron sucrose (VENOFER) injection 200 mg 200 mg, IV, During Dialysis Given: 05/15 1326 lidocaine (LIDOCARE) 4 % patch 2 patch 2 patch, TD, Once a day Medication Applied: 05/16 0951 polyethylene glycol (MIRALAX) packet 17 g 17 g, PO, Once a day Given: 05/15 0827 tamsulosin (FLOMAX) 24 hr capsule 0.4 mg 0.4 mg, PO, Nightly Given: 05/16 2035 Current Functional Status reviewed today: Impaired memory, verbal organization. Improved speech intelligibility observed today. Close supervision for lower body dressing. BARRIERS: Cognitive impairments Assessment and Plan 1.Etiologic Diagnosis: Encephalopathy in setting of new renal failure-may have dementia-on aricept.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 2. Gait disorder multifactorial 3. ESRD: HD per dr donato 4. Urinary retention, resolved. Off ditropan, all PVR's below 300 cc 5. Osteoarthritis: Voltaren gel, prn oral analgesics. 6. Dyslipidemia: continuing statin. 7. History ogf gout: Allopurinol. Co-Morbidities that are continuing to impact the rehab process: Problem List: 2019-04: Hyperglycemia 2019-04: Retention of urine 2019-04: Diastolic dysfunction 2019-04: Seroma 2019-04: Abnormality of gait 2019-04: Toxic metabolic encephalopathy 2019-04: End stage renal failure on dialysis 2019-04: Debility 2019-04: Moderate malnutrition 2019-04: Anemia of chronic renal failure 2019-04: Chronic kidney disease, Stage V 2019-04: Essential hypertension 2019-04: Hyperkalemia 2019-04: Hypervolemia 2019-04: Malignant neoplasm of prostate 2019-04: Other hyperlipidemia 2019-04: Metabolic acidosis 2019-04: Latent autoimmune diabetes mellitus in adult Continue therapies. Continue inpatient comprehensive interdisciplinary rehabilitation to address strengthening, mobility skills, self care, cognitive functioning, speech, communication and swallowing needs. The patient continues to require the interdisciplinary team approach and 24 hour monitoring. ADDITIONAL INFORMATION: left leg previous injury, ?seroma EDUCATION/PT TEACHING: therapy goals EQUIPMENT: TBD DESTINATION: home CANDI: 05/28/2019 FOLLOW UP PLANS: MIKE Regalado MD 05/17/19 4:03 PM * Carmen Donato MD - 05/16/2019 7:11 PM CST Nephrology Progress Note Jules Mitchell [id number] Subjective: Patient seen and examined, denies fever, chills, chest pain, sob, cough, changes in appetite, N/V, diarrhea, abdominal pain, dysuria, hematuria, feeling stronger on rehab Objective: Vital signs: Vitals: 05/15/19 2033 05/16/19 0730 05/16/19 0820 05/16/19 1748 BP: 115/60 (!) 83/57 102/63 127/83 Pulse: 62 80 94 Resp: 18 Temp: 98.9 ??F (37.2 ??C) 97.5 ??F (36.4 ??C) TempSrc: Oral Oral SpO2: 100% 98% 98% Weight: Height: Weight: Wt Readings from Last 3 Encounters: 05/15/19 128 lb 4 oz (58.2 kg) Medications: Scheduled/Continuous Medications Scheduled Medication Dose/Rate, Route, Frequency Last Action allopurinol (ZYLOPRIM) tablet 100 mg 100 mg, PO, Once a day Given: 05/16 949 atorvastatin (LIPITOR) tablet 20 mg 20 mg, PO, Once a day Given: 05/16 949 bisacodyl (DULCOLAX) suppository 10 mg 10 mg, RE, Once Ordered Diclofenac Sodium (VOLTAREN) 1 % gel 2 g 2 g, TOP, BID Given: 05/16 952 docusate sodium (COLACE) capsule 100 mg 100 mg, PO, Once a day Given: 05/16 949 donepezil (ARICEPT) tablet 10 mg 10 mg, PO, Nightly Given: 05/15 2041 epoetin ashly-epbx (RETACRIT) 4,000 Units 4,000 Units, SC, T-Th-Sat w/Dialysis Given: 05/15 120 folic acid (FOLVITE) tablet 1 mg 1 mg, PO, Once a day Given: 05/16 950 furosemide (LASIX) tablet 80 mg 80 mg, PO, BID DIURETIC Given: 05/16 1746 heparin (porcine) injection 1,000 Units 1,000 Units, IK, 3x/week in HD Ordered heparin (porcine) injection 1,000 Units 1,000 Units, IK, 3x/week in HD Ordered heparin (porcine) injection 4,300 Units 4,300 Units, IV, T-Th-Sat w/Dialysis Given: 05/15 105 insulin lispro (HumaLOG) injection 0-6 Units 2 Units, SC, AC & HS Given - Witness Not Required:05/16 1745 iron sucrose (VENOFER) injection 200 mg 200 mg, IV, During Dialysis Given: 05/15 132 lidocaine (LIDOCARE) 4 % patch 2 patch 2 patch, TD, Once a day Medication Applied: 05/16 950 polyethylene glycol (MIRALAX) packet 17 g 17 g, PO, Once a day Given: 05/15 826 tamsulosin (FLOMAX) 24 hr capsule 0.4 mg 0.4 mg, PO, Nightly Given: 05/15 2041 Current Facility-Administered Medications: ??? acetaminophen (TYLENOL) tablet 325 mg, 325 mg, PO/Per Tube, Q6H PRN, Misty Hathaway MD, 325 mgat 05/11/191 ??? allopurinol (ZYLOPRIM) tablet 100 mg, 100 mg, Oral, Once a day, Misty Hathaway MD, 100 mg at 05/16/19 0950 ??? atorvastatin (LIPITOR) tablet 20 mg, 20 mg, Oral, Once a day, Misty Hathaway MD, 20 mg at 05/16/19 0950 ??? bisacodyl (DULCOLAX) suppository 10 mg, 10 mg, Rectal, Once, Manoj Morrison NP ??? dextrose (GLUTOSE) 40 % oral gel 15 g, 15 g, Oral, PRN, Manoj Morrison, CORK COMPOUNDER ??? dextrose 5 % and sodium chloride 0.45 % infusion, 50 mL/hr, Intravenous, PRN, Manoj Morrison, CORK COMPOUNDER ??? dextrose 50 % IV solution 25 g, 25 g, Intravenous, PRN, Manoj Morrison, CORK COMPOUNDER ??? Diclofenac Sodium (VOLTAREN) 1 % gel 2 g, 2 g, Topical, 2 times per day, Manoj Morrison NP, 2 g at 05/16/19 0953 ??? docusate sodium (COLACE) capsule 100 mg, 100 mg, Oral, Once a day, Misty Hathaway MD, 100 mg at 05/16/19 0950 ??? donepezil (ARICEPT) tablet 10 mg, 10 mg, Oral, Nightly, Misty Hathaway MD, 10 mg at 05/15/192041 ??? epoetin ashly-epbx (RETACRIT) 4,000 Units, 4,000 Units, Subcutaneous, T--Fri w/Dialysis, Froy Donato MD, 4,000 Units at 05/15/19 1204 ??? folic acid (FOLVITE) tablet 1 mg, 1 mg, Oral, Once a day, Misty Hathaway MD, 1 mg at 05/16/19 0951 ??? furosemide (LASIX) tablet 80 mg, 80 mg, Oral, BID DIURETIC, Manoj Morrison NP, 80 mg at 05/16/19 1747 ??? glucagon (human recombinant) injection 1 mg, 1 mg, Intramuscular, PRN, Manoj Morrison CORK COMPOUNDER ??? heparin (porcine) injection 1,000 Units, 1,000 Units, Intracatheter, Once per day on Fri, Carmen Donato MD ??? heparin (porcine) injection 1,000 Units, 1,000 Units, Intracatheter, Once per day on Fri, Carmen Donato MD ??? heparin (porcine) injection 4,300 Units, 4,300 Units, Intravenous, T-Th-Sat w/Dialysis, Carmen Curtis MD, 4,300 Units at 05/15/19 1051 ? ? insulin lispro (HumaLOG) injection 0-6 Units, 0-6 Units, Subcutaneous, AC & HS, 2 Units at 05/16/19 1746 AND POCT glucose, , , AC & HS, Manoj Morrison, NEENA ??? iron sucrose (VENOFER) injection 200 mg, 200 mg, Intravenous, During Dialysis, Carmen Donato MD, 200 mg at 05/15/19 1326 ??? lidocaine (LIDOCARE) 4 % patch 2 patch, 2 patch, Transdermal, Once a day, Manoj Morrison NP, 2 patch at 05/16/19 0951 ??? oxyCODONE-acetaminophen (PERCOCET) 5-325 MG 1 tablet, 1 tablet, Oral, Q6H PRN, Misty Hathaway MD, 1 tablet at 05/13/19 1753 ??? polyethylene glycol (MIRALAX) packet 17 g, 17 g, Oral, Once a day, Misty Hathaway MD, 17 g at 05/15/19 0827 ??? sodium chloride 0.9 % infusion 250 mL, 250 mL, Intravenous (Continuous Infusion), PRN During Dialysis, Carmen Donato MD ??? tamsulosin (FLOMAX) 24 hr capsule 0.4 mg, 0.4 mg, Oral, Nightly, Misty Hathaway MD, 0.4 mg at 05/15/19 2042 ??? acetaminophen ??? glucose ??? dextrose 5 % and sodium chloride 0.45 % ??? dextrose ??? glucagon ??? oxyCODONE-acetaminophen ??? sodium chloride Physical Exam: General: awake and alert. In NAD Lungs: CTA B/L Heart: RRR, S1 and S2 without rubs Abdomen: Soft, NT/ND, + BS Ext: Without edema Labs: Recent Labs Lab Units 05/15/19 0659 05/13/19 0500 05/12/19 0530 SODIUM MMOL/L BLOOD mmol/L 137 137 139 POTASSIUM MMOL/L BLOOD mmol/L 4.4 3.6 3.9 CHLORIDE mmol/L 96* 96* 95* CO2 mmol/L 30 26 29 BUN MG/DL BLOOD mg/dL 45* 48* 29* CREATININE mg/dL 6.77* 5.64* 4.03* GLUCOSE MG/DL BLOOD mg/dL 131* 121* 119* CALCIUM MG/DL BLOOD mg/dL 8.2* 8.3* 8.9 ANION GAP BLOOD mmol/L 11 15 Recent Labs Lab Units 05/15/19 0659 05/13/19 0500 05/12/19 0530 SODIUM MMOL/L BLOOD mmol/L 137 137 139 POTASSIUM MMOL/L BLOOD mmol/L 4.4 3.6 3.9 CHLORIDE mmol/L 96* 96* 95* CO2 mmol/L 30 26 29 BUN MG/DL BLOOD mg/dL 45* 48* 29* CREATININE mg/dL 6.77* 5.64* 4.03* GLUCOSE MG/DL BLOOD mg/dL 131* 121* 119* CALCIUM MG/DL BLOOD mg/dL 8.2* 8.3* 8.9 Recent Labs Lab Units 05/15/19 0659 05/13/19 0500 05/12/19 0530 SODIUM MMOL/L BLOOD mmol/L 137 137 139 POTASSIUM MMOL/L BLOOD mmol/L 4.4 3.6 3.9 CHLORIDE mmol/L 96* 96* 95* CO2 mmol/L 30 26 29 BUN MG/DL BLOOD mg/dL 45* 48* 29* CREATININE mg/dL 6.77* 5.64* 4.03* GLUCOSE MG/DL BLOOD mg/dL 131* 121* 119* CALCIUM MG/DL BLOOD mg/dL 8.2* 8.3* 8.9 Recent Labs Lab Units 05/15/19 0659 05/13/19 0500 05/12/19 0530 WBC X(10)9/L BLOOD x10E9/L 5.7 5.9 6.6 HGB GM/DL BLOOD gm/dL 7.9* 8.8* 9.4* HCT % BLOOD % 26.1* 29.1* 31.2* PLT CT X(10)9/L BLOOD x10E9/L 218 267 273 Assessment/ Plan: Principal Problem: Toxic metabolic encephalopathy Active Problems: Debility Anemia of chronic renal failure Chronic kidney disease, Stage V Essential hypertension Hyperkalemia Hypervolemia Malignant neoplasm of prostate Moderate malnutrition Other hyperlipidemia Retention of urine Diastolic dysfunction Seroma Abnormality of gait End stage renal failure on dialysis Hyperglycemia LOS: 5 days Assessment/Plan ESRD: next dialysis on Friday. HTN: reasonably controlled with dialysis Acute volume overload related to ESRD: compensated on dialysis and oral Lasix Anemia related to ESRD, iron deficiency: on iron replacment DM Left thigh seroma Hyperlipidemia:on statin Hyperkalemia from ESRD: on dialysis and this is better Generalized weakness from uremia: on rehab Metabolic acidosis: stable on dialysis Constipation: on bowel regimen Weakness: on rehab CARMEN DONATO MD * [place] NEENA Morrison - 05/16/2019 1:19 PM CST Images from the original note were not included. HOSPITALIST PROGRESS NOTE Patient Name: Jules Mitchell : 1945 Medical Record: [id number] Admit date 05/11/19 DATE OF SERVICE 05/16/2019 ATTENDING PHYSICIAN Florencia Moulton MD ? CHIEF COMPLAINT Principal Problem: Debility Active Problems: Type 2 diabetes mellitus Anemia of chronic renal failure Chronic kidney disease, Stage V Essential hypertension Hyperkalemia Hypervolemia Malignant neoplasm of prostate Moderate malnutrition Other hyperlipidemia Retention of urine Diastolic dysfunction Seroma Abnormality of gait Toxic metabolic encephalopathy ? HISTORY OF PRESENT ILLNESS ?? The patient is a 73 y.o. y/o male with history of f prostate cancer, DM, and HTN presents to the [facility] of intermittent left leg pain since last week. he has left sided buttock pain that radiates down posterior aspect of leg to knee. Hx coagulopathy, Hx venous thromboembolism. Pt was in acute renal failure with volume overload. Seen by renal , initiated dialysis , ?? currently here for therapy Todays chief Complains gen weakness Left leg pain ?? Confused about details of history ?? Duration of problems- Intensity Type Associated symptoms Aggrevating/relieving factors ? History also obtained from review of patients previous acute hospitalization chart, current rehabilitation chart , discussion with family members in the room and discussion with nursing staff taking care of the patient. ? SUBJECTIVE 05/13 initial progress note The patient is being seen for follow-up of all current problems, BP, BS , HR, labs and strength. Follow up on pain, swallowing, bladder and bowel function. Patient denies any chest pain, palpitations, shortness of breath, cough, abdominal pain, nausea, vomiting, diarrhea or constipation. No overnight events. Denies pain. Pain controlled on meds prescribed. Bowel movement 05/10. Lactulose ordered. Refused last night suppository. Had bm today 05/13 bp low bp 103/61 DC norvasc - hold lisinopril x 2 days Has 800 ml urine output with current urine agents- DC ditropan per PMR. Bladder scan [phone] ml had to be straight cath 800 ml out PVR 600 ml Due for dialysis today followed by Dr Donato Case discussed with Dr. Moulton, physiatry. Minh burns added Liver enzymes OK Seen by Neuropsych Appetite good and states slept well. Patient participating with therapy and is doing well. No further needs expressed at this time. 05/14 The patient is being seen for follow-up of all current problems, BP, BS , HR, labs and strength. Follow up on pain, swallowing, bladder and bowel function. Patient denies any chest pain, palpitations, shortness of breath, cough, abdominal pain, nausea, vomiting, diarrhea or constipation. No overnight events. 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 Pain controlled on meds prescribed. Bowel movement 05/13 x 2. Pt seen this am sitting up in chair working with Zympi. Discussed pt with Carlos. Walking 100 ft with therapy, eager for exercises today. Requesting topical agent for L knee pain- voltaren gel ordered. Lidocaine patch for L thigh pain- edema improved. 1500 ml off with dialysis yesterday- tolerated. PVR 238-242-303 ml, continue with PVR another day. Weight 130 lb Sugars stable 119-135 Afebrile. HR 60s bp 119/60, 108/62. sats 100 % RA Atenolol held today. Decrease lisinopril to 2.5 Appetite good and states slept well. Patient participating with therapy and is doing well. No further needs expressed at this time. 05/15 The patient is being seen for follow-up of all current problems, BP, BS , HR, labs and strength. Follow up on pain, swallowing, bladder and bowel function. Patient denies any chest pain, palpitations, shortness of breath, cough, abdominal pain, nausea, vomiting, diarrhea or constipation. No overnight events. Denies pain. Pain controlled on meds prescribed. Pain better with lidocaine and voltaren gel. Bowel movement 05/13 bp soft this am- hold atenolol x 2 days Hold lasix and lisonopril DC atenolol- feels dizzy with therapy Notified Renal Yehuda. Dc lisinopril, wants to continue lasix BID pvr 278 ml, 330-224. Has x 1 straigh cath last night with 300 ml out urine. No weight recorded this am Sugars [phone]- Dialysis today, BP still soft 90/51, HR 57-64. Holding atenolol x 2 days and held lasix and lisinopril this am. PVR 278 ml 330-224, was cath x 1 today with 300 ml out Appetite good and states slept well. Patient participating with therapy and is doing well. No further needs expressed at this time. BP low still down to 80s On dialysis Called and D/W Dr Donato - continue lasix Since pt having good urine out put ?? DC Lisinopril AND CHIVO I 05/16 The patient is being seen for follow-up of all current problems, BP, BS , HR, labs and strength. Follow up on pain, swallowing, bladder and bowel function. Patient denies any chest pain, palpitations, shortness of breath, cough, abdominal pain, nausea, vomiting, diarrhea or constipation. No overnight events. Denies pain. Pain controlled on meds prescribed. Bowel movement today. Pain better with patch. Has not taken percocet since 05/13 Afebrile. HR 90s-80 bp 102/63 sats 98% RA. Still off most BP meds-monitor. 2000 ml off with dialysis. PVR 122-159-0 ml. [place] stable 128 lb. Pt seen sitting up in chair watching tv, L thigh edema down. Sugars [phone] Labs done 05/15. Appetite good and states slept well. Patient participating with therapy and is doing well. No further needs expressed at this time. REVIEW OF SYSTEMS General: no weight loss, [...] the other 14 organ systems are negative PAST MEDICAL HISTORY Medical??History Past Medical History: Diagnosis Date ??? Diabetes mellitus ? Diabetes mellitus 05/12/2019 ??? Hypertension ? Other abnormal clinical findings ? Seroma 05/12/2019 ?? Proximal Left thigh 60 x 23 x39 mm by US ? PAST SURGICAL HISTORY Surgical??History No past surgical history on file. ?? ALLERGIES No Known Allergies CURRENT MEDICATIONS Current Facility-Administered Medications: ??? acetaminophen (TYLENOL) tablet 325 mg, 325 mg, PO/Per Tube, Q6H PRN, Misty Hathaway MD, 325 mgat 05/11/19 2321 ??? allopurinol (ZYLOPRIM) tablet 100 mg, 100 mg, Oral, Once a day, Misty Hathaway MD, 100 mg at 05/16/19 0950 ??? atorvastatin (LIPITOR) tablet 20 mg, 20 mg, Oral, Once a day, Misty Hathaway MD, 20 mg at 05/16/19 0950 ??? bisacodyl (DULCOLAX) suppository 10 mg, 10 mg, Rectal, Once, Lucija Sadl, CORK COMPOUNDER ??? dextrose (GLUTOSE) 40 % oral gel 15 g, 15 g, Oral, PRN, Lucija Sadl, CORK COMPOUNDER ??? dextrose 5 % and sodium chloride 0.45 % infusion, 50 mL/hr, Intravenous, PRN, Lucija Sadl, CORK COMPOUNDER ??? dextrose 50 % IV solution 25 g, 25 g, Intravenous, PRN, Lucija Sadl, CORK COMPOUNDER ??? Diclofenac Sodium (VOLTAREN) 1 % gel 2 g, 2 g, Topical, 2 times per day, Manoj Morrison NP, 2 g at 05/16/19 0953 ??? docusate sodium (COLACE) capsule 100 mg, 100 mg, Oral, Once a day, Misty Hathaway MD, 100 mg at 05/16/19 0950 ??? donepezil (ARICEPT) tablet 10 mg, 10 mg, Oral, Nightly, Misty Hathaway MD, 10 mg at 05/15/19 2042 ??? epoetin ashly-epbx (RETACRIT) 4,000 Units, 4,000 Units, Subcutaneous, T--Sat w/Dialysis, Froy Donato MD, 4,000 Units at 05/15/19 1204 ??? folic acid (FOLVITE) tablet 1 mg, 1 mg, Oral, Once a day, Misty Hathaway MD, 1 mg at 05/16/19 0951 ??? furosemide (LASIX) tablet 80 mg, 80 mg, Oral, BID DIURETIC, Manoj Morrison NP ??? glucagon (human recombinant) injection 1 mg, 1 mg, Intramuscular, PRN, Manoj Morrison NP ??? heparin (porcine) injection 1,000 Units, 1,000 Units, Intracatheter, Once per day on Fri, Carmen Donato MD ??? heparin (porcine) injection 1,000 Units, 1,000 Units, Intracatheter, Once per day on Fri, Carmen Donato MD ??? heparin (porcine) injection 4,300 Units, 4,300 Units, Intravenous, --Fri w/Dialysis, Carmen Curtis MD, 4,300 Units at 05/15/19 1051 ? ? insulin lispro (HumaLOG) injection 0-6 Units, 0-6 Units, Subcutaneous, AC & HS, 3 Units at 05/15/19 1205 AND POCT glucose, , , AC & HS, Manoj Morrison NP ??? iron sucrose (VENOFER) injection 200 mg, 200 mg, Intravenous, During Dialysis, Carmen Donato MD, 200 mg at 05/15/19 1326 ??? lidocaine (LIDOCARE) 4 % patch 2 patch, 2 patch, Transdermal, Once a day, Manoj Morrison NP, 2 patch at 05/16/19 0951 ??? oxyCODONE-acetaminophen (PERCOCET) 5-325 MG 1 tablet, 1 tablet, Oral, Q6H PRN, Misty Hathaway MD, 1 tablet at 05/13/19 1753 ??? polyethylene glycol (MIRALAX) packet 17 g, 17 g, Oral, Once a day, Misty Hathaway MD, 17 g at 05/15/19 0827 ??? sodium chloride 0.9 % infusion 250 mL, 250 mL, Intravenous (Continuous Infusion), PRN During Dialysis, Carmen Donato MD ??? tamsulosin (FLOMAX) 24 hr capsule 0.4 mg, 0.4 mg, Oral, Nightly, Misty Hathaway MD, 0.4 mg at 05/15/192041 PHYSICAL EXAM WEIGHTS 136 lb 1 oz (61.7 kg) ?? General appearance: awake, alert, cooperative, no distress HEENT: Normocephalic, No icterus, No oral lesions, [...] without mass, non-tender, with normal bowel sounds, External Genitalia not examined, groin Extremities: no clubbing, cyanosis or edema, no calf tenderness Musculoskeletal:no swelling of joints.no redness, FROM otherjoints Psychologic: Mood and affect appropriate, no suicidal ideation. Skin: No rash, swelling or erythema identified . Warm and Dry, R chest dialysis cath with tegaderm dressing clean dry and intact. Neurologic/WHITESMITH:Alert & oriented x 2 confused at times, poor historian, Speech normal, Tongue and uvula central Strength is 4/5 in all extremities ?? No clonus Gait not tested ? Please see height, weight, and BP reported elsewhere as part of this encounter ?? LABS CBC: Recent Labs Lab Units 05/15/19 0659 WBC X(10)9/L BLOOD x10E9/L 5.7 HGB GM/DL BLOOD gm/dL 7.9* PLT CT X(10)9/L BLOOD x10E9/L 218 MCV FL BLOOD fl 98.5* BMP: Recent Labs Lab Units 05/15/19 0659 05/13/19 0500 SODIUM MMOL/L BLOOD mmol/L 137 137 POTASSIUM MMOL/L BLOOD mmol/L 4.4 3.6 CHLORIDE mmol/L 96* 96* CO2 mmol/L 30 26 BUN MG/DL BLOOD mg/dL 45* 48* CREATININE mg/dL 6.77* 5.64* GLUCOSE MG/DL BLOOD mg/dL 131* 121* CALCIUM MG/DL BLOOD mg/dL 8.2* 8.3* ALBUMIN GM/DL BLOOD gm/dL -- 3.4 DATA Vitals: 05/15/19 1807 05/15/19 2033 05/16/19 0730 05/16/19 0820 BP: 115/60 (!) 83/57 102/63 Pulse: 62 80 94 Resp: Temp: 98.9 ??F (37.2 ??C) 97.5 ??F (36.4 ??C) TempSrc: Oral Oral SpO2: 100% 98% 98% Weight: 128 lb 4 oz (58.2 kg) Height: POC Glucose POC Glucose 05/16/19 1218 138 05/16/19 0631 115 05/15/19 1653 165 Weights (last 3 days) Date/Time Weight 05/15/19 180 128 lb 4 oz (58.2 kg) 05/14/19 0614 130 lb 3.2 oz (59.1 kg) @ANTICOAGSUMMARY@ @FLOWDATE(2706:LAST)@ Intake/Output Summary (Last 24 hours) at 05/16/2019 1319 Last data filed at 05/16/2019 0553 Gross per 24 hour Intake 220 ml Output 2200 ml Net -1980 ml IMAGING STUDIES & OTHER STUDIES ?? ASSESSMENT AND PLAN Principal Problem: Toxic metabolic encephalopathy Active Problems: Debility Anemia of chronic renal failure Chronic kidney disease, Stage V Essential hypertension Hyperkalemia Hypervolemia Malignant neoplasm of prostate Moderate malnutrition Other hyperlipidemia Retention of urine Diastolic dysfunction Seroma Abnormality of gait End stage renal failure on dialysis Hyperglycemia Debility Active Problems: Type 2 diabetes mellitus Anemia of chronic renal failure Chronic kidney disease, Stage V Essential hypertension Hyperkalemia Hypervolemia Malignant neoplasm of prostate Moderate malnutrition Other hyperlipidemia Retention of urine Diastolic dysfunction Seroma Abnormality of gait Toxic metabolic encephalopathy ?? Acute renal failure, CKD LE edema ESRD,with volume overload, on dialysis now Renal consulted Echo done 04/29 Still on lasix 80 bid watch BP 05/[address] Donato, dialysis today 05/14 PVR 238-242-303 ml, continue with PVR another day. Weight 130 lb 05/15 bun 45 cr 6.77 Diastolic grade 1 heart failure Ef 60% per echo 04/29 Lasix, dialysis 05/14 weight 130 lb 05/16 wt 128 lb L thigh seroma Dopplers done 04/29 negative for dvt Hypertension,/ hypotension / bradycardia Continue meds 05/13 bp 103/61 on norvasc, tenormin , lasix 80 bid, lisinopril 5 DC norvasc - parameters added to bp meds Hold lisinopril x 2 days 05/14 Decrease lisinopril to 2.5. bp 108/60 DC atenolol HR 55-64 DC lisimopril 05/15 bp 90/51 05/16 bp 115/60, 102/63, 83/55, 127/83 hr 80-94 Hyperkalemia, related to the chronic kidney disease, on dialysis 05/13 k 3.6 05/15 k 4.4 Hypocalcemia 05/15 ca 8.2 Gout allopurinol Metabolic acidosis, from the renal failure, better with dialysis Anemia, most recent hemoglobin 8.7, , monitor H/H 05/13 h and h 8.8/ 29.1 05/15 h and h 7.9/ 26.1 Vit b 12 349 Epoetin per renal and IV venofer Altered sugars aacu, SSI 05/13 poct 121 05/14 poct 119-135 05/15 Sugars [phone] 05/16 Sugars [phone] ?? h/oProstate cancer Bladder management / hx of orchiectomy / urine retention in acutre Voiding ok Ditropan and flomax 05/13 had high volume PVR , dc ditropan. 05/16 PVR los volumes 122-159-0 ml last night Dementia/ cognitive impairment aricept neuropsych consult DVT prophylaxis: on Lovenox Minh hose Full code Echo 05/01/19: Mild concentric left ventricular hypertrophy. Impaired diastolic relaxation Grade I. Ejection fraction is visually estimated at 60 %. There is mild enlargement of left atrium. Mild aortic valve regurgitation. ? Pain management Today's pain score 0 05/13 percocet 6 q 6 prn, tylenol Lidocaine patch and voltaren ? FEN. Nutrition consult for evaluation of nutritional status and the best diet. And for BMI evaluation and education regarding maintaining a healthy BMI ? Bowel management . Titrate bowel medications for constipation/diarrhea. 05/13 had bm ?? Skin. Nursing to address skin care throughout stay. Turn every 2 hrs ?? Sleep. Monitor sleep-wake cycle. ?? High Fall risk- Fall precautions GI Prophylaxis: Full Resuscitation ? Comprehensive Rehab Program (including but not limited to): ?? --Nursing: working on bowel and bladder continence, skin integrity, carry over from therapies, environmental safety, and providing patient and family education. --Physical and Occupational Therapy: working on strength, endurance, balance, gait, and technique to improve safety and independence with ADLs and Mobility. --ST: working on oral-motor control, executive skills, memory, orientation, and cognitive skills. --Paralegal Instructor: discharge plans in the context of social, family, and discharge needs to help coordinate a safe discharge. --Neuropsychology (if applicable): tracking cognitive progress, evaluate memory, behavior, and cognitive function. guide patient and team toward better outcomes through understanding of behavioral and cognitive impairments and the obstacles that manifest by them --Rehabilitation Physician: to determine rehabilitation needs medical rehabilitation needs, will beseen by a farm operator at a minimum of 3 times a week. The rehabilitation physician will coordinate care and help manage/prevent complications as a result of the patient???s illness and impairments ?? The patient will receive 24 hour/day rehabilitation [...] long-term physical, cognitive, emotional and medical well-being. ?? The patient will expected to participate and receive intensive therapy (an average of 3 hours per day of an average of 5 days weekly) not available in other settings in the inpatient rehabilitation program. The patient???s care will be coordinated through an interdisciplinary team with frequent human resources team member interactions and weekly conferences. An individualized plan of care with a minimum of two rehab therapies will be developed for the patient. ?? Please refer to the [facility]???s Post Admission Note determining the medical necessity as outlined in the [facility] documents to support admission for Acute Inpatient Rehabilitation ?? Electronically signed by: MANOJ MORRISON NP, 05/16/2019 1:19 PM Cosigned by Misty Hathaway MD at 05/24/2019 7:47 AM GLOVE TAGGER Associated attestation - Misty Hathaway MD - 05/24/2019 8:47 AM EST 3 The patient is being seen for follow-up of all current problems, BP, BS , HR, labs and strength. Follow up on pain, swallowing, bladder and bowel function. Strength improving, able to do therapy ok. I saw, evaluated and examined the patient face to face in conjunction with the CORK COMPOUNDER and agree with the management and disposition of the patient. History also obtained from Nurse and staff about how the patient did overnight and during the day. I performed mario portions of the follow up history, examination, review of labs and radiology and evaluation. I agree with the subjective, physical exam and assessment and plan details as outlined in the note below. Discussed the mario medical decision making- both assessment and plan, rehabilitation goals and treatment plan with patient, CORK COMPOUNDER , nursing staff, farm operator and the members of the team. * Carmen Donato MD - 05/15/2019 12:14 PM CST Nephrology Progress Note Jules Mitchell [id number] Subjective: Patient seen and examined, denies fever, chills, chest pain, sob, cough, changes in appetite, N/V, diarrhea, abdominal pain, dysuria, hematuria, feeling stronger on rehab Objective: Vital signs: Vitals: 05/14/19 0700 [id number]/19201105/15/19 0730 BP: 108/62 108/62 90/51 122/69 Pulse: 64 64 57 69 Resp: Temp: 97.2 ??F (36.2 ??C) 98.5 ??F (36.9 ??C) 98.5 ??F (36.9 ??C) TempSrc: Oral Oral Oral SpO2: 100% 100% 98% Weight: Height: Weight: Wt Readings from Last 3 Encounters: 05/14/19 130 lb 3.2 oz (59.1 kg) Medications: Scheduled/Continuous Medications Scheduled Medication Dose/Rate, Route, Frequency Last Action allopurinol (ZYLOPRIM) tablet 100 mg 100 mg, PO, Once a day Given: 05/15 825 atorvastatin (LIPITOR) tablet 20 mg 20 mg, PO, Once a day Given: 05/15 824 bisacodyl (DULCOLAX) suppository 10 mg 10 mg, RE, Once Ordered Diclofenac Sodium (VOLTAREN) 1 % gel 2 g 2 g, TOP, BID Given: 05/15 824 docusate sodium (COLACE) capsule 100 mg 100 mg, PO, Once a day Given: 05/15 824 donepezil (ARICEPT) tablet 10 mg 10 mg, PO, Nightly Given: 05/14 2051 epoetin ashly-epbx (RETACRIT) 4,000 Units 4,000 Units, SC, T-Th-Sat w/Dialysis Given: 05/15 1203 folic acid (FOLVITE) tablet 1 mg 1 mg, PO, Once a day Given: 05/15 825 furosemide (LASIX) tablet 80 mg 80 mg, PO, BID DIURETIC Ordered heparin (porcine) injection 1,000 Units 1,000 Units, IK, 3x/week in HD Ordered heparin (porcine) injection 1,000 Units 1,000 Units, IK, 3x/week in HD Ordered heparin (porcine) injection 4,300 Units 4,300 Units, IV, T-Th-Sat w/Dialysis Given: 05/15 105 insulin lispro (HumaLOG) injection 0-6 Units 3 Units, SC, AC & HS Given - Witness Not Required:05/15 120 iron sucrose (VENOFER) injection 200 mg 200 mg, IV, During Dialysis Given: 01/18 1326 lidocaine (LIDOCARE) 4 % patch 2 patch 2 patch, TD, Once a day Medication Applied: 05/15 825 polyethylene glycol (MIRALAX) packet 17 g 17 g, PO, Once a day Given: 05/15 826 tamsulosin (FLOMAX) 24 hr capsule 0.4 mg 0.4 mg, PO, Nightly Given: 05/14 2051 Current Facility-Administered Medications: ??? acetaminophen (TYLENOL) tablet 325 mg, 325 mg, PO/Per Tube, Q6H PRN, Misty Hathaway MD, 325 mgat 05/11/192320 ??? allopurinol (ZYLOPRIM) tablet 100 mg, 100 mg, Oral, Once a day, Misty Hathaway MD, 100 mg at 05/15/19825 ??? atorvastatin (LIPITOR) tablet 20 mg, 20 mg, Oral, Once a day, Misty Hathaway MD, 20 mg at 05/15/19824 ??? bisacodyl (DULCOLAX) suppository 10 mg, 10 mg, Rectal, Once, Lucija Sadl, CORK COMPOUNDER ??? dextrose (GLUTOSE) 40 % oral gel 15 g, 15 g, Oral, PRN, Lucija Sadl, CORK COMPOUNDER ??? dextrose 5 % and sodium chloride 0.45 % infusion, 50 mL/hr, Intravenous, PRN, Lucija Sadl, CORK COMPOUNDER ??? dextrose 50 % IV solution 25 g, 25 g, Intravenous, PRN, Lucija Sadl, CORK COMPOUNDER ??? Diclofenac Sodium (VOLTAREN) 1 % gel 2 g, 2 g, Topical, 2 times per day, Luctashaa Sadl, CORK COMPOUNDER, 2 g at 05/15/19824 ??? docusate sodium (COLACE) capsule 100 mg, 100 mg, Oral, Once a day, Misty Hathaway MD, 100 mg at 05/15/19824 ??? donepezil (ARICEPT) tablet 10 mg, 10 mg, Oral, Nightly, Misty Hathaway MD, 10 mg at 05/14/192051 ??? epoetin ashly-epbx (RETACRIT) 4,000 Units, 4,000 Units, Subcutaneous, T--Sat w/Dialysis, Froy Donato MD, 4,000 Units at 05/15/19 1204 ??? folic acid (FOLVITE) tablet 1 mg, 1 mg, Oral, Once a day, Misty Hathaway MD, 1 mg at 05/15/19 0826 ??? [START ON 05/16/2019] furosemide (LASIX) tablet 80 mg, 80 mg, Oral, BID DIURETIC, Manoj Morrison NP ??? glucagon (human recombinant) injection 1 mg, 1 mg, Intramuscular, PRN, Manoj Morrison NP ??? heparin (porcine) injection 1,000 Units, 1,000 Units, Intracatheter, Once per day on Fri, Carmen Donato MD ??? heparin (porcine) injection 1,000 Units, 1,000 Units, Intracatheter, Once per day on Fri, Carmen Donato MD ??? heparin (porcine) injection 4,300 Units, 4,300 Units, Intravenous, -[facility] w/Dialysis, Carmen Curtis MD, 4,300 Units at 05/15/19 1051 ? ? insulin lispro (HumaLOG) injection 0-6 Units, 0-6 Units, Subcutaneous, AC & HS, 3 Units at 05/15/19 1205 AND POCT glucose, , , AC & HS, Manoj Morrison NP ??? iron sucrose (VENOFER) injection 200 mg, 200 mg, Intravenous, During Dialysis, Carmen Donato MD, 200 mg at 05/15/19 1326 ??? lidocaine (LIDOCARE) 4 % patch 2 patch, 2 patch, Transdermal, Once a day, Manoj Morrison NP, 2 patch at 05/15/19 08 ??? oxyCODONE-acetaminophen (PERCOCET) 5-325 MG 1 tablet, 1 tablet, Oral, Q6H PRN, Misty Hathaway MD, 1 tablet at 05/13/19 1753 ??? polyethylene glycol (MIRALAX) packet 17 g, 17 g, Oral, Once a day, Misty Hathaway MD, 17 g at 05/15/19 08 ??? sodium chloride 0.9 % infusion 250 mL, 250 mL, Intravenous (Continuous Infusion), PRN During Dialysis, Carmen Donato MD ??? tamsulosin (FLOMAX) 24 hr capsule 0.4 mg, 0.4 mg, Oral, Nightly, Misty Hathaway MD, 0.4 mg at 05/14/192051 ??? acetaminophen ??? glucose ??? dextrose 5 % and sodium chloride 0.45 % ??? dextrose ??? glucagon ??? oxyCODONE-acetaminophen ??? sodium chloride Physical Exam: General: awake and alert. In NAD Lungs: CTA B/L Heart: RRR, S1 and S2 without rubs Abdomen: Soft, NT/ND, + BS Ext: Without edema Labs: Recent Labs Lab Units 05/15/19 0659 05/13/19 0500 05/12/19 0530 SODIUM MMOL/L BLOOD mmol/L 137 137 139 POTASSIUM MMOL/L BLOOD mmol/L 4.4 3.6 3.9 CHLORIDE mmol/L 96* 96* 95* CO2 mmol/L 30 26 29 BUN MG/DL BLOOD mg/dL 45* 48* 29* CREATININE mg/dL 6.77* 5.64* 4.03* GLUCOSE MG/DL BLOOD mg/dL 131* 121* 119* CALCIUM MG/DL BLOOD mg/dL 8.2* 8.3* 8.9 ANION GAP BLOOD mmol/L 11 15 15 Recent Labs Lab Units 05/15/19 0659 05/13/19 0500 05/12/19 0530 SODIUM MMOL/L BLOOD mmol/L 137 137 139 POTASSIUM MMOL/L BLOOD mmol/L 4.4 3.6 3.9 CHLORIDE mmol/L 96* 96* 95* CO2 mmol/L 30 26 29 BUN MG/DL BLOOD mg/dL 45* 48* 29* CREATININE mg/dL 6.77* 5.64* 4.03* GLUCOSE MG/DL BLOOD mg/dL 131* 121* 119* CALCIUM MG/DL BLOOD mg/dL 8.2* 8.3* 8.9 Recent Labs Lab Units 05/15/19 0659 05/13/19 0500 05/12/19 0530 SODIUM MMOL/L BLOOD mmol/L 137 137 139 POTASSIUM MMOL/L BLOOD mmol/L 4.4 3.6 3.9 CHLORIDE mmol/L 96* 96* 95* CO2 mmol/L 30 26 29 BUN MG/DL BLOOD mg/dL 45* 48* 29* CREATININE mg/dL 6.77* 5.64* 4.03* GLUCOSE MG/DL BLOOD mg/dL 131* 121* 119* CALCIUM MG/DL BLOOD mg/dL 8.2* 8.3* 8.9 Recent Labs Lab Units 05/15/19 0659 05/13/19 0500 05/12/19 0530 WBC X(10)9/L BLOOD x10E9/L 5.7 5.9 6.6 HGB GM/DL BLOOD gm/dL 7.9* 8.8* 9.4* HCT % BLOOD % 26.1* 29.1* 31.2* PLT CT X(10)9/L BLOOD x10E9/L 218 267 273 Assessment/ Plan: Principal Problem: Toxic metabolic encephalopathy Active Problems: Debility Anemia of chronic renal failure Chronic kidney disease, Stage V Essential hypertension Hyperkalemia Hypervolemia Malignant neoplasm of prostate Moderate malnutrition Other hyperlipidemia Retention of urine Diastolic dysfunction Seroma Abnormality of gait End stage renal failure on dialysis Hyperglycemia LOS: 4 days Assessment/Plan ESRD: on dialysis now. HTN: reasonably controlled with dialysis Acute volume overload related to ESRD: compensated on dialysis Anemia related to ESRD, iron deficiency: on iron replacment DM Left thigh seroma Hyperlipidemia:on statin Hyperkalemia from ESRD: on dialysis and this is better Generalized weakness from uremia: on rehab Metabolic acidosis: stable on dialysis Constipation: on bowel regimen Weakness: on rehab CARMEN DONATO MD * Manoj Morrison CORK COMPOUNDER - 05/15/2019 11:38 AM CST Images from the original note were not included. HOSPITALIST PROGRESS NOTE Patient Name: Jules Mitchell : 1945 Medical Record: [id number] Admit date 05/11/19 DATE OF SERVICE 05/15/2019 ATTENDING PHYSICIAN Florencia Moulton MD ? CHIEF COMPLAINT Principal Problem: Debility Active Problems: Type 2 diabetes mellitus Anemia of chronic renal failure Chronic kidney disease, Stage V Essential hypertension Hyperkalemia Hypervolemia Malignant neoplasm of prostate Moderate malnutrition Other hyperlipidemia Retention of urine Diastolic dysfunction Seroma Abnormality of gait Toxic metabolic encephalopathy ? HISTORY OF PRESENT ILLNESS ?? The patient is a 73 y.o. y/o male with history of f prostate cancer, DM, and HTN presents to the [facility] of intermittent left leg pain since last week. he has left sided buttock pain that radiates down posterior aspect of leg to knee. Hx coagulopathy, Hx venous thromboembolism. Pt was in acute renal failure with volume overload. Seen by renal , initiated dialysis , ?? currently here for therapy Todays chief Complains gen weakness Left leg pain ?? Confused about details of history ?? Duration of problems- Intensity Type Associated symptoms Aggrevating/relieving factors ? History also obtained from review of patients previous acute hospitalization chart, current rehabilitation chart , discussion with family members in the room and discussion with nursing staff taking care of the patient. ? SUBJECTIVE 05/13 initial progress note The patient is being seen for follow-up of all current problems, BP, BS , HR, labs and strength. Follow up on pain, swallowing, bladder and bowel function. Patient denies any chest pain, palpitations, shortness of breath, cough, abdominal pain, nausea, vomiting, diarrhea or constipation. No overnight events. Denies pain. Pain controlled on meds prescribed. Bowel movement 05/10. Lactulose ordered. Refused last night suppository. Had bm today 05/13 bp low bp 103/61 DC norvasc - hold lisinopril x 2 days Has 800 ml urine output with current urine agents- DC ditropan per PMR. Bladder scan [phone] ml had to be straight cath 800 ml out PVR 600 ml Due for dialysis today followed by Dr Donato Case discussed with Dr. Moulton, physiatry. Minh burns added Liver enzymes OK Seen by Neuropsych Appetite good and states slept well. Patient participating with therapy and is doing well. No further needs expressed at this time. 05/14 The patient is being seen for follow-up of all current problems, BP, BS , HR, labs and strength. Follow up on pain, swallowing, bladder and bowel function. Patient denies any chest pain, palpitations, shortness of breath, cough, abdominal pain, nausea, vomiting, diarrhea or constipation. No overnight events. 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 Pain controlled on meds prescribed. Bowel movement 05/13 x 2. Pt seen this am sitting up in chair working with Zympi. Discussed pt with Carlos. Walking 100 ft with therapy, eager for exercises today. Requesting topical agent for L knee pain- voltaren gel ordered. Lidocaine patch for L thigh pain- edema improved. 1500 ml off with dialysis yesterday- tolerated. PVR 238-242-303 ml, continue with PVR another day. Weight 130 lb Sugars stable 119-135 Afebrile. HR 60s bp 119/60, 108/62. sats 100 % RA Atenolol held today. Decrease lisinopril to 2.5 Appetite good and states slept well. Patient participating with therapy and is doing well. No further needs expressed at this time. 05/15 The patient is being seen for follow-up of all current problems, BP, BS , HR, labs and strength. Follow up on pain, swallowing, bladder and bowel function. Patient denies any chest pain, palpitations, shortness of breath, cough, abdominal pain, nausea, vomiting, diarrhea or constipation. No overnight events. Denies pain. Pain controlled on meds prescribed. Pain better with lidocaine and voltaren gel. Bowel movement 05/13 bp soft this am- hold atenolol x 2 days Hold lasix and lisonopril DC atenolol- feels dizzy with therapy Notified Renal Yuan. Dc lisinopril, wants to continue lasix BID pvr 278 ml, 330-224. Has x 1 straigh cath last night with 300 ml out urine. No weight recorded this am Sugars [phone] Dialysis today, BP still soft 90/51, HR 57-64. Holding atenolol x 2 days and held lasix and lisinopril this am. PVR 278 ml 330-224, was cath x 1 today with 300 ml out Appetite good and states slept well. Patient participating with therapy and is doing well. No further needs expressed at this time. REVIEW OF SYSTEMS General: no weight loss, [...] the other 14 organ systems are negative PAST MEDICAL HISTORY Medical??History Past Medical History: Diagnosis Date ??? Diabetes mellitus ? Diabetes mellitus 05/12/2019 ??? Hypertension ? Other abnormal clinical findings ? Seroma 05/12/2019 ?? Proximal Left thigh 60 x 23 x39 mm by US ? PAST SURGICAL HISTORY Surgical??History No past surgical history on file. ?? ALLERGIES No Known Allergies CURRENT MEDICATIONS Current Facility-Administered Medications: ??? acetaminophen (TYLENOL) tablet 325 mg, 325 mg, PO/Per Tube, Q6H PRN, Misty Hathaway MD, 325 mgat 05/11/19 232 ??? allopurinol (ZYLOPRIM) tablet 100 mg, 100 mg, Oral, Once a day, Misty Hathaway MD, 100 mg at 05/15/19 0826 ??? [START ON 05/17/2019] atenolol (TENORMIN) tablet 12.5 mg, 12.5 mg, Oral, Once a day, Manoj Morrison, CORK COMPOUNDER ??? atorvastatin (LIPITOR) tablet 20 mg, 20 mg, Oral, Once a day, Misty Hathaway MD, 20 mg at 05/15/19 0825 ??? bisacodyl (DULCOLAX) suppository 10 mg, 10 mg, Rectal, Once, Lucija Sadl, CORK COMPOUNDER ??? dextrose (GLUTOSE) 40 % oral gel 15 g, 15 g, Oral, PRN, Lucija Sadl, CORK COMPOUNDER ??? dextrose 5 % and sodium chloride 0.45 % infusion, 50 mL/hr, Intravenous, PRN, Lucija Sadl, CORK COMPOUNDER ??? dextrose 50 % IV solution 25 g, 25 g, Intravenous, PRN, Lucija Sadl, C[employer] COMPOUNDER ??? Diclofenac Sodium (VOLTAREN) 1 % gel 2 g, 2 g, Topical, 2 times per day, Manoj Morrison NP, 2 g at 05/15/19824 ??? docusate sodium (COLACE) capsule 100 mg, 100 mg, Oral, Once a day, Misty Hathaway MD, 100 mg at 05/15/19824 ??? donepezil (ARICEPT) tablet 10 mg, 10 mg, Oral, Nightly, Misty Hathaway MD, 10 mg at 05/14/192051 ??? epoetin ashly-epbx (RETACRIT) 4,000 Units, 4,000 Units, Subcutaneous, T--Sat w/Dialysis, Froy Donato MD ??? folic acid (FOLVITE) tablet 1 mg, 1 mg, Oral, Once a day, Misty Hathaway MD, 1 mg at 05/15/19825 ??? [START ON 05/16/2019] furosemide (LASIX) tablet 80 mg, 80 mg, Oral, BID DIURETIC, Manoj Morrison NP ??? glucagon (human recombinant) injection 1 mg, 1 mg, Intramuscular, PRN, Manoj Morrison NP ??? heparin (porcine) injection 1,000 Units, 1,000 Units, Intracatheter, Once per day on Fri, Carmen Donato MD ??? heparin (porcine) injection 1,000 Units, 1,000 Units, Intracatheter, Once per day on Fri, Carmen Donato MD ??? heparin (porcine) injection 4,300 Units, 4,300 Units, Intravenous, T--Sat w/Dialysis, Carmen Curtis MD, 4,300 Units at 05/15/19 105 ? ? insulin lispro (HumaLOG) injection 0-6 Units, 0-6 Units, Subcutaneous, AC & HS AND POCTglucose, , , AC & HS, Manoj Morrison NP ??? iron sucrose (VENOFER) injection 200 mg, 200 mg, Intravenous, During Dialysis, Carmen Donato MD ??? lidocaine (LIDOCARE) 4 % patch 2 patch, 2 patch, Transdermal, Once a day, Manoj Morrison NP, 2 patch at 05/15/19825 ??? [START ON 05/16/2019] lisinopril (PRINIVIL,ZESTRIL) tablet 2.5 mg, 2.5 mg, Oral, Once a day, Manoj Morrison NP ??? oxyCODONE-acetaminophen (PERCOCET) 5-325 MG 1 tablet, 1 tablet, Oral, Q6H PRN, Misty Hathaway MD, 1 tablet at 05/13/19 1753 ??? polyethylene glycol (MIRALAX) packet 17 g, 17 g, Oral, Once a day, Misty Hathaway MD, 17 g at 05/15/19 0827 ??? sodium chloride 0.9 % infusion 250 mL, 250 mL, Intravenous (Continuous Infusion), PRN During Dialysis, Carmen Donato MD ??? tamsulosin (FLOMAX) 24 hr capsule 0.4 mg, 0.4 mg, Oral, Nightly, Misty Hathaway MD, 0.4 mg at 05/14/192051 PHYSICAL EXAM WEIGHTS 136 lb 1 oz (61.7 kg) ?? General appearance: awake, alert, cooperative, no distress HEENT: Normocephalic, No icterus, No oral lesions, [...] without mass, non-tender, with normal bowel sounds, External Genitalia not examined, groin Extremities: no clubbing, cyanosis or edema, no calf tenderness Musculoskeletal:no swelling of joints.no redness, FROM otherjoints Psychologic: Mood and affect appropriate, no suicidal ideation. Skin: No rash, swelling or erythema identified . Warm and Dry, R chest dialysis cath with tegaderm dressing clean dry and intact. Neurologic/WHITESMITH:Alert & oriented x 2 confused at times, poor historian, Speech normal, Tongue and uvula central Strength is 4/5 in all extremities ?? No clonus Gait not tested ? Please see height, weight, and BP reported elsewhere as part of this encounter ?? LABS CBC: Recent Labs Lab Units 05/15/19 0659 WBC X(10)9/L BLOOD x10E9/L 5.7 HGB GM/DL BLOOD gm/dL 7.9* PLT CT X(10)9/L BLOOD x10E9/L 218 MCV FL BLOOD fl 98.5* BMP: Recent Labs Lab Units 05/15/19 0659 05/13/19 0500 SODIUM MMOL/L BLOOD mmol/L 137 137 POTASSIUM MMOL/L BLOOD mmol/L 4.4 3.6 CHLORIDE mmol/L 96* 96* CO2 mmol/L 30 26 BUN MG/DL BLOOD mg/dL 45* 48* CREATININE mg/dL 6.77* 5.64* GLUCOSE MG/DL BLOOD mg/dL 131* 121* CALCIUM MG/DL BLOOD mg/dL 8.2* 8.3* ALBUMIN GM/DL BLOOD gm/dL -- 3.4 DATA Vitals: 05/14/19 0614 05/14/19 0700 05/14/19 0823 05/14/192011 BP: 108/62 108/62 90/51 Pulse: 64 64 57 Resp: 18 16 Temp: 97.2 ??F (36.2 ??C) 98.5 ??F (36.9 ??C) TempSrc: Oral Oral SpO2: 100% 100% Weight: 130 lb 3.2 oz (59.1 kg) Height: POC Glucose POC Glucose 05/15/19 0634 104 05/14/19 2130 137 05/14/19 1633 171 Weights (last 3 days) Date/Time Weight Height BSA (Calculated - sq m) 05/14/19 0614 130 lb 3.2 oz (59.1 kg) -- -- 05/12/19 0504 136 lb 1 oz (61.7 kg) 5' 10 (1.778 m) 1.74 sq meters @ANTICOAGSUMMARY@ @FLOWDATE(2706:LAST)@ Intake/Output Summary (Last 24 hours) at 05/15/2019 1138 Last data filed at 05/15/2019 0425 Gross per 24 hour Intake 720 ml Output 300 ml Net 420 ml IMAGING STUDIES & OTHER STUDIES ?? ASSESSMENT AND PLAN Principal Problem: Toxic metabolic encephalopathy Active Problems: Debility Anemia of chronic renal failure Chronic kidney disease, Stage V Essential hypertension Hyperkalemia Hypervolemia Malignant neoplasm of prostate Moderate malnutrition Other hyperlipidemia Retention of urine Diastolic dysfunction Seroma Abnormality of gait End stage renal failure on dialysis Hyperglycemia Debility Active Problems: Type 2 diabetes mellitus Anemia of chronic renal failure Chronic kidney disease, Stage V Essential hypertension Hyperkalemia Hypervolemia Malignant neoplasm of prostate Moderate malnutrition Other hyperlipidemia Retention of urine Diastolic dysfunction Seroma Abnormality of gait Toxic metabolic encephalopathy ?? Acute renal failure, CKD LE edema ESRD,with volume overload, on dialysis now Renal consulted Echo done 04/29 Still on lasix 80 bid watch BP 05/[address] Donato, dialysis today 05/14 PVR [phone] ml, continue with PVR another day. Weight 130 lb Diastolic grade 1 heart failure Ef 60% per echo 04/29 Lasix, dialysis 05/14 weight 130 lb L thigh seroma Dopplers done 04/29 negative for dvt Hypertension,/ hypotension / bradycardia Continue meds 05/13 bp 103/61 on norvasc, tenormin , lasix 80 bid, lisinopril 5 DC norvasc - parameters added to bp meds Hold lisinopril x 2 days 05/14 Decrease lisinopril to 2.5. bp 108/60 DC atenolol HR 55-64 DC lisimopril Hyperkalemia, related to the chronic kidney disease, on dialysis 05/13 k 3.6 Gout allopurinol Metabolic acidosis, from the renal failure, better with dialysis Anemia, most recent hemoglobin 8.7, , monitor H/H 05/13 h and h 8.8/ 29.1 Altered sugars aacu, SSI 05/13 poct 121 05/14 poct 119-135 05/15 Sugars [phone] ?? h/oProstate cancer Bladder management / hx of orchiectomy / urine retention in acutre Voiding ok Ditropan and flomax 05/13 had high volume PVR , dc ditropan. Dementia/ cognitive impairment aricept neuropsych consult DVT prophylaxis: on Lovenox Minh hose Full code Echo 05/01/19: Mild concentric left ventricular hypertrophy. Impaired diastolic relaxation Grade I. Ejection fraction is visually estimated at 60 %. There is mild enlargement of left atrium. Mild aortic valve regurgitation. ? Pain management Today's pain score 0 05/13 percocet 6 q 6 prn, tylenol ? FEN. Nutrition consult for evaluation of nutritional status and the best diet. And for BMI evaluation and education regarding maintaining a healthy BMI ? Bowel management . Titrate bowel medications for constipation/diarrhea. 05/13 had bm ?? Skin. Nursing to address skin care throughout stay. Turn every 2 hrs ?? Sleep. Monitor sleep-wake cycle. ?? High Fall risk- Fall precautions GI Prophylaxis: Full Resuscitation ? Comprehensive Rehab Program (including but not limited to): ?? --Nursing: working on bowel and bladder continence, skin integrity, carry over from therapies, environmental safety, and providing patient and family education. --Physical and Occupational Therapy: working on strength, endurance, balance, gait, and technique to improve safety and independence with ADLs and Mobility. --ST: working on oral-motor control, executive skills, memory, orientation, and cognitive skills. --Paralegal Instructor: discharge plans in the context of social, family, and discharge needs to help coordinate a safe discharge. --Neuropsychology (if applicable): tracking cognitive progress, evaluate memory, behavior, and cognitive function. guide patient and team toward better outcomes through understanding of behavioral and cognitive impairments and the obstacles that manifest by them --Rehabilitation Physician: to determine rehabilitation needs medical rehabilitation needs, will beseen by a farm operator at a minimum of 3 times a week. The rehabilitation physician will coordinate care and help manage/prevent complications as a result of the patient???s illness and impairments ?? The patient will receive 24 hour/day rehabilitation [...] long-term physical, cognitive, emotional and medical well-being. ?? The patient will expected to participate and receive intensive therapy (an average of 3 hours per day of an average of 5 days weekly) not available in other settings in the inpatient rehabilitation program. The patient???s care will be coordinated through an interdisciplinary team with frequent human resources team member interactions and weekly conferences. An individualized plan of care with a minimum of two rehab therapies will be developed for the patient. ?? Please refer to the [facility]???s Post Admission Note determining the medical necessity as outlined in the [facility] documents to support admission for Acute Inpatient Rehabilitation ?? Electronically signed by: MANOJ MORRISON NP, 05/15/2019 11:38 AM Cosigned by Misty Hathaway MD at 05/15/2019 1:09 PM GLOVE TAGGER Associated attestation - Misty Hathaway MD - 05/15/2019 2:09 PM EST The patient is being seen for follow-up of all current problems, BP, BS , HR, labs and strength. Follow up on pain, swallowing, bladder and bowel function. Strength improving, able to do therapy ok. I saw, evaluated and examined the patient face to face in conjunction with the CORK COMPOUNDER and agree with the management and disposition of the patient. History also obtained from Nurse and staff about how the patient did overnight and during the day. I performed mario portions of the follow up history, examination, review of labs and radiology and evaluation. I agree with the subjective, physical exam and assessment and plan details as outlined in the note below. Discussed the mario medical decision making- both assessment and plan, rehabilitation goals and treatment plan with patient, CORK COMPOUNDER , nursing staff, farm operator and the members of the team. BP low still down to 80s On dialysis Called and D/W Dr Donato - continue lasix Since pt having good urine out put DC Lisinopril AND CHIVO I * Florencia Moulton MD - 05/14/2019 7:12 PM CST Images from the original note were not included. Rehabilitation Physician Progress Note Patient Name: Jules Mitchell Age: 73 y.o. Patient's Primary Care Physician: Dr. Kwame Berg LOS: 3 DAYS This was a face to face visit with the patient Seen and examined today for rehab and medical issues related to debility with encephalopathy. CC My left knee is less crunchy HPI and Interval history: Watching pvrs-dced ditropan Less than 300 cc Tolerating HD Blood sugars are below 150 PVRs below 300 cc Subjective Review of Systems No complaints PHYSICAL EXAM: (Retired) Vitals (last 3 days) Date/Time Temp Pulse Resp BP SpO2 Weight 05/14/19 0823 -- 64 -- 108/62 -- -- 05/14/19 0700 97.2 ??F (36.2 ??C) 64 18 108/62 100 % -- 05/14/19 0614 -- -- -- -- -- 130 lb 3.2 oz (59.1 kg) 05/13/192009 97.8 ??F (36.6 ??C) 58 18 119/60 99 % -- 05/13/191957 -- 68 -- 105/58 -- -- 05/13/19 1940 -- 68 -- 105/59 -- -- 05/13/19 1920 -- 69 -- 99/61 -- -- 05/13/19 1900 -- 77 -- 115/66 -- -- 05/13/19 1840 -- 67 -- 118/66 -- -- 05/13/19 1820 -- 66 -- 123/66 -- -- 05/13/19 1800 -- 63 -- 122/67 -- -- 05/13/19 1740 -- 64 -- 102/58 -- -- 05/13/19 1720 -- 66 -- 108/58 -- -- 05/13/19 1700 -- 60 -- 139/64 -- -- 05/13/19 1640 -- 58 -- 125/66 -- -- 05/13/19 1627 -- 58 -- 134/61 -- -- 05/13/19 1620 98.9 ??F (37.2 ??C) 56 18 140/58 100 % -- 05/13/19 0840 98.6 ??F (37 ??C) 59 18 101/63 100 % -- 05/12/192052 98.2 ??F (36.8 ??C) 54 17 103/61 98 % -- 05/12/19 0943 -- 67 -- 124/71 -- -- 05/12/19 0942 -- -- -- 124/71 -- -- 05/12/19 0730 98.7 ??F (37.1 ??C) 67 16 124/71 98 % -- 05/12/19 0504 98.3 ??F (36.8 ??C) 60 18 117/65 100 % 136 lb 1 oz (61.7 kg) 05/11/19 1933 98.3 ??F (36.8 ??C) 60 18 117/65 100 % 136 lb 1.6 oz (61.7 kg) Blood sugars: POC Glucose POC Glucose 05/14/19 1633 171 05/14/19 1133 139 05/14/19 0636 135 05/13/19 2109 119 Weights (last 3 days) Date/Time Weight Height BSA (Calculated - sq m) 05/14/19 0614 130 lb 3.2 oz (59.1 kg) -- -- 05/12/19 0504 136 lb 1 oz (61.7 kg) 5' 10 (1.778 m) 1.74 sq meters 05/11/191932 136 lb 1.6 oz (61.7 kg) -- -- GENERAL: Alert seen in gym HEENT: EOMI MMM NECK: no JVD LUNGS: Clear to auscultation CV: RR ABDOMEN: Soft NT to palpation EXTREMITIES: Less edema SKIN: No new issues TONE: normal MUSCULOSKELETAL: UE without weakness LLE with hip flexion, knee extension, ankle dorsiflexion NEURO: Slowed responses Lab Data Reviewed current lab results available to me today. Lab Results Component Value Date WBC 5.9 05/13/2019 HGB 8.8 (L) 05/13/2019 HCT 29.1 (L) 05/13/2019 MCV 97.7 05/13/2019 PLT 267 05/13/2019 Lab Results Component Value Date GLUCOSE 121 (H) 05/13/2019 CALCIUM 8.3 (L) 05/13/2019 NA 137 05/13/2019 K 3.6 05/13/2019 CO2 26 05/13/2019 CL 96 (L) 05/13/2019 BUN 48 (H) 05/13/2019 CREATININE 5.64 (H) 05/13/2019 ANIONGAP 15 05/13/2019 Imaging Reviewed current imaging results available to me today. No results found. Allergies No Known Allergies Medication List Scheduled/Continuous Medications Scheduled Medication Dose/Rate, Route, Frequency Last Action allopurinol (ZYLOPRIM) tablet 100 mg 100 mg, PO, Once a day Given: 05/14 822 atenolol (TENORMIN) tablet 12.5 mg 12.5 mg, PO, Once a day Given: 05/13 919 atorvastatin (LIPITOR) tablet 20 mg 20 mg, PO, Once a day Given: 05/14 823 bisacodyl (DULCOLAX) suppository 10 mg 10 mg, RE, Once Ordered Diclofenac Sodium (VOLTAREN) 1 % gel 2 g 2 g, TOP, BID Given: 05/14 1300 docusate sodium (COLACE) capsule 100 mg 100 mg, PO, Once a day Given: 05/14 822 donepezil (ARICEPT) tablet 10 mg 10 mg, PO, Nightly Given: 05/13 2107 folic acid (FOLVITE) tablet 1 mg 1 mg, PO, Once a day Given: 05/14 822 furosemide (LASIX) tablet 80 mg 80 mg, PO, BID DIURETIC Given: 05/14 1713 heparin (porcine) injection 1,000 Units 1,000 Units, IK, 3x/week in HD Ordered heparin (porcine) injection 1,000 Units 1,000 Units, IK, 3x/week in HD Ordered insulin lispro (HumaLOG) injection 0-6 Units 0-6 Units, SC, AC & HS Ordered lidocaine (LIDOCARE) 4 % patch 2 patch 2 patch, TD, Once a day Medication Applied: 05/14 1300 lisinopril (PRINIVIL,ZESTRIL) tablet 2.5 mg 2.5 mg, PO, Once a day Ordered polyethylene glycol (MIRALAX) packet 17 g 17 g, PO, Once a day Given: 05/14 823 tamsulosin (FLOMAX) 24 hr capsule 0.4 mg 0.4 mg, PO, Nightly Given: 05/13 2107 Current Functional Status reviewed today: Mobility: Gait Analysis: 2 x 121' with RW and consistent CGA for safety. Pt demonstrates greatly increased distance between RW and DEONNA during first bout. Noted decreased foot clearance and decreased stance time on L LE, however no LOB throughout ambulation. Pt requires seated rest break after each bout. With visual demonstration of proper gait mechanics and close positioning of RW to DEONNA, pt demonstrates second bout with improved overall upright posture and notes decreased stress on L LE during ambulation as well. ?? Self cares and ADLS: Close supervision Communication/Cognition: 03/27 SLUMS Swallow: functional Progress Toward Rehabilitation Goals The patient appears to be making a meaningful amount of functional progress in a reasonable amount of time IMPROVEMENTS: Working with therapies improved to CGA BARRIERS: Cognitive impairments Assessment and Plan Etiologic Diagnosis: Encephalopathy in setting of new renal failure-may have dementia-on aricept Gait disorder multifactorial HD per dr donato Urinary retention dced ditropan, all below 300 cc ACUTE ISSUES Today: TC Co-Morbidities that are continuing to impact the rehab process: Problem List: 2019-04: Retention of urine 2019-04: Diastolic dysfunction 2019-04: Seroma 2019-04: Abnormality of gait 2019-04: Toxic metabolic encephalopathy 2019-04: End stage renal failure on dialysis 2019-04: Debility 2019-04: Moderate malnutrition 2019-04: Anemia of chronic renal failure 2019-04: Chronic kidney disease, Stage V 2019-04: Essential hypertension 2019-04: Hyperkalemia 2019-04: Hypervolemia 2019-04: Malignant neoplasm of prostate 2019-04: Other hyperlipidemia 2019-04: Metabolic acidosis 2019-04: Latent autoimmune diabetes mellitus in adult Continue therapies. Continue inpatient comprehensive interdisciplinary rehabilitation to address strengthening, mobility skills, self care, cognitive functioning, speech, communication and swallowing needs. The patient continues to require the interdisciplinary team approach and 24 hour monitoring. ADDITIONAL INFORMATION: left leg previous injury, ?seroma EDUCATION/PT TEACHING: therapy goals EQUIPMENT: TBD DESTINATION: home CANDI: 05/28/2019 FOLLOW UP PLANS: dr donato Greater than 35 minutes used in patient exam, review of records, discussion with staff, teaching, and planning. FLORENCIA MOULTON MD 05/14/19 7:12 PM * Carmen Donato MD - 05/14/2019 3:41 PM CST Nephrology Progress Note Jules Mitchell [id number] Subjective: Patient seen and examined, denies fever, chills, chest pain, sob, cough, changes in appetite, N/V, diarrhea, abdominal pain, dysuria, hematuria, feeling stronger on rehab Objective: Vital signs: Vitals: 05/13/19200905/14/19 0614 05/14/19 0700 05/14/19 0823 BP: 119/60 108/62 108/62 Pulse: 58 64 64 Resp: 18 18 Temp: 97.8 ??F (36.6 ??C) 97.2 ??F (36.2 ??C) TempSrc: Oral Oral SpO2: 99% 100% Weight: 130 lb 3.2 oz (59.1 kg) Height: Intake/Output Summary (Last 24 hours) at 05/14/2019 1541 Last data filed at 05/14/2019 1200 Gross per 24 hour Intake 240 ml Output 1500 ml Net -1260 ml Intake/Output last 3 shifts: I/O last 3 completed shifts: In: 240 [P.O.:240] Out: 2300 [Urine:800; Other:1500] Intake/Output this shift: I/O this shift: In: 240 [P.O.:240] Out: - Weight: Wt Readings from Last 3 Encounters: 05/14/19 130 lb 3.2 oz (59.1 kg) Medications: Scheduled/Continuous Medications Scheduled Medication Dose/Rate, Route, Frequency Last Action allopurinol (ZYLOPRIM) tablet 100 mg 100 mg, PO, Once a day Given: 05/14 822 atenolol (TENORMIN) tablet 12.5 mg 12.5 mg, PO, Once a day Given: 05/13 919 atorvastatin (LIPITOR) tablet 20 mg 20 mg, PO, Once a day Given: 05/14 823 bisacodyl (DULCOLAX) suppository 10 mg 10 mg, RE, Once Ordered Diclofenac Sodium (VOLTAREN) 1 % gel 2 g 2 g, TOP, BID Given: 05/14 130 docusate sodium (COLACE) capsule 100 mg 100 mg, PO, Once a day Given: 05/14 822 donepezil (ARICEPT) tablet 10 mg 10 mg, PO, Nightly Given: 05/13 2107 folic acid (FOLVITE) tablet 1 mg 1 mg, PO, Once a day Given: 05/14 822 furosemide (LASIX) tablet 80 mg 80 mg, PO, BID DIURETIC Given: 05/14 822 heparin (porcine) injection 1,000 Units 1,000 Units, IK, 3x/week in HD Ordered heparin (porcine) injection 1,000 Units 1,000 Units, IK, 3x/week in HD Ordered insulin lispro (HumaLOG) injection 0-6 Units 0-6 Units, SC, AC & HS Ordered lidocaine (LIDOCARE) 4 % patch 2 patch 2 patch, TD, Once a day Medication Applied: 05/14 1301 lisinopril (PRINIVIL,ZESTRIL) tablet 2.5 mg 2.5 mg, PO, Once a day Ordered polyethylene glycol (MIRALAX) packet 17 g 17 g, PO, Once a day Given: 05/14 823 tamsulosin (FLOMAX) 24 hr capsule 0.4 mg 0.4 mg, PO, Nightly Given: 05/13 2107 Current Facility-Administered Medications: ??? acetaminophen (TYLENOL) tablet 325 mg, 325 mg, PO/Per Tube, Q6H PRN, Misty Hathaway MD, 325 mgat 05/11/19 2321 ??? allopurinol (ZYLOPRIM) tablet 100 mg, 100 mg, Oral, Once a day, Misty Hathaway MD, 100 mg at 05/14/19 0823 ??? atenolol (TENORMIN) tablet 12.5 mg, 12.5 mg, Oral, Once a day, Manoj Morrison NP, 12.5 mg at 05/13/19 0920 ??? atorvastatin (LIPITOR) tablet 20 mg, 20 mg, Oral, Once a day, Misty Hathaway MD, 20 mg at 05/14/19 0824 ??? bisacodyl (DULCOLAX) suppository 10 mg, 10 mg, Rectal, Once, Manoj Morrison, CORK COMPOUNDER ??? dextrose (GLUTOSE) 40 % oral gel 15 g, 15 g, Oral, PRN, Manoj Morrison, CORK COMPOUNDER ??? dextrose 5 % and sodium chloride 0.45 % infusion, 50 mL/hr, Intravenous, PRN, Manoj Morrison, CORK COMPOUNDER ??? dextrose 50 % IV solution 25 g, 25 g, Intravenous, PRN, Manoj Morrison, CORK COMPOUNDER ??? Diclofenac Sodium (VOLTAREN) 1 % gel 2 g, 2 g, Topical, 2 times per day, Manoj Morrison NP, 2 g at 05/14/19 1301 ??? docusate sodium (COLACE) capsule 100 mg, 100 mg, Oral, Once a day, Misty Hathaway MD, 100 mg at 05/14/19 08 ??? donepezil (ARICEPT) tablet 10 mg, 10 mg, Oral, Nightly, Misty Hathaway MD, 10 mg at 05/13/19 210 ??? folic acid (FOLVITE) tablet 1 mg, 1 mg, Oral, Once a day, Misty Hathaway MD, 1 mg at 05/14/19 08 ??? furosemide (LASIX) tablet 80 mg, 80 mg, Oral, BID DIURETIC, Misty Hathaway MD, 80 mg at 05/14/19822 ??? glucagon (human recombinant) injection 1 mg, 1 mg, Intramuscular, PRN, Manoj Morrison NP ??? heparin (porcine) injection 1,000 Units, 1,000 Units, Intracatheter, Once per day on Fri, Carmen Donato MD ??? heparin (porcine) injection 1,000 Units, 1,000 Units, Intracatheter, Once per day on Fri, Carmen Donato MD ? ? insulin lispro (HumaLOG) injection 0-6 Units, 0-6 Units, Subcutaneous, AC & HS AND POCTglucose, , , AC & HS, Manoj Morrison NP ??? lidocaine (LIDOCARE) 4 % patch 2 patch, 2 patch, Transdermal, Once a day, Manoj Morrison NP, 2 patch at 05/14/19 1301 ??? [START ON 05/16/2019] lisinopril (PRINIVIL,ZESTRIL) tablet 2.5 mg, 2.5 mg, Oral, Once a day, Manoj Morrison NP ??? oxyCODONE-acetaminophen (PERCOCET) 5-325 MG 1 tablet, 1 tablet, Oral, Q6H PRN, Misty Hathaway MD, 1 tablet at 05/13/19 1753 ??? polyethylene glycol (MIRALAX) packet 17 g, 17 g, Oral, Once a day, Misty Hathaway MD, 17 g at 05/14/19 0824 ??? sodium chloride 0.9 % infusion 250 mL, 250 mL, Intravenous (Continuous Infusion), PRN During Dialysis, Carmen Donato MD ??? tamsulosin (FLOMAX) 24 hr capsule 0.4 mg, 0.4 mg, Oral, Nightly, Misty Hathaway MD, 0.4 mg at 05/13/19 2108 ??? acetaminophen ??? glucose ??? dextrose 5 % and sodium chloride 0.45 % ??? dextrose ??? glucagon ??? oxyCODONE-acetaminophen ??? sodium chloride Physical Exam: General: awake and alert. In NAD Lungs: CTA B/L Heart: RRR, S1 and S2 without rubs Abdomen: Soft, NT/ND, + BS Ext: Without edema Labs: Recent Labs Lab Units 05/13/19 0500 05/12/19 0530 SODIUM MMOL/L BLOOD mmol/L 137 139 POTASSIUM MMOL/L BLOOD mmol/L 3.6 3.9 CHLORIDE mmol/L 96* 95* CO2 mmol/L 26 29 BUN MG/DL BLOOD mg/dL 48* 29* CREATININE mg/dL 5.64* 4.03* GLUCOSE MG/DL BLOOD mg/dL 121* 119* CALCIUM MG/DL BLOOD mg/dL 8.3* 8.9 ANION GAP BLOOD mmol/L 15 15 Recent Labs Lab Units 05/13/19 0500 05/12/19 0530 SODIUM MMOL/L BLOOD mmol/L 137 139 POTASSIUM MMOL/L BLOOD mmol/L 3.6 3.9 CHLORIDE mmol/L 96* 95* CO2 mmol/L 26 29 BUN MG/DL BLOOD mg/dL 48* 29* CREATININE mg/dL 5.64* 4.03* GLUCOSE MG/DL BLOOD mg/dL 121* 119* CALCIUM MG/DL BLOOD mg/dL 8.3* 8.9 Recent Labs Lab Units 05/13/19 0500 05/12/19 0530 SODIUM MMOL/L BLOOD mmol/L 137 139 POTASSIUM MMOL/L BLOOD mmol/L 3.6 3.9 CHLORIDE mmol/L 96* 95* CO2 mmol/L 26 29 BUN MG/DL BLOOD mg/dL 48* 29* CREATININE mg/dL 5.64* 4.03* GLUCOSE MG/DL BLOOD mg/dL 121* 119* CALCIUM MG/DL BLOOD mg/dL 8.3* 8.9 Recent Labs Lab Units 05/13/19 0500 05/12/19 0530 WBC X(10)9/L BLOOD x10E9/L 5.9 6.6 HGB GM/DL BLOOD gm/dL 8.8* 9.4* HCT % BLOOD % 29.1* 31.2* PLT CT X(10)9/L BLOOD x10E9/L 267 273 Assessment/ Plan: Principal Problem: Toxic metabolic encephalopathy Active Problems: Debility Anemia of chronic renal failure Chronic kidney disease, Stage V Essential hypertension Hyperkalemia Hypervolemia Malignant neoplasm of prostate Moderate malnutrition Other hyperlipidemia Retention of urine Diastolic dysfunction Seroma Abnormality of gait End stage renal failure on dialysis LOS: 3 days Assessment/Plan ESRD: dialysis as needed. HTN: reasonably controlled Acute volume overload related to ESRD: [id number] on dialysis Anemia related to ESRD, iron deficiency: on iron replacment DM Left thigh seroma Hyperlipidemia:on statin Hyperkalemia from ESRD: on dialysis and this is better Generalized weakness from uremia: on rehab Metabolic acidosis: stable on dialysis Constipation: on bowel regimen Weakness: on rehab CARMEN DONATO MD * Manoj Morrison NP - 05/14/2019 12:08 PM CST Images from the original note were not included. HOSPITALIST PROGRESS NOTE Patient Name: Jules Mitchell : 1945 Medical Record: [id number] Admit date 05/11/19 DATE OF SERVICE 05/14/2019 ATTENDING PHYSICIAN Florencia Moulton MD ? CHIEF COMPLAINT Principal Problem: Debility Active Problems: Type 2 diabetes mellitus Anemia of chronic renal failure Chronic kidney disease, Stage V Essential hypertension Hyperkalemia Hypervolemia Malignant neoplasm of prostate Moderate malnutrition Other hyperlipidemia Retention of urine Diastolic dysfunction Seroma Abnormality of gait Toxic metabolic encephalopathy ? HISTORY OF PRESENT ILLNESS ?? The patient is a 73 y.o. y/o male with history of f prostate cancer, DM, and HTN presents to the [facility] of intermittent left leg pain since last week. he has left sided buttock pain that radiates down posterior aspect of leg to knee. Hx coagulopathy, Hx venous thromboembolism. Pt was in acute renal failure with volume overload. Seen by renal , initiated dialysis , ?? currently here for therapy Todays chief Complains gen weakness Left leg pain ?? Confused about details of history ?? Duration of problems- Intensity Type Associated symptoms Aggrevating/relieving factors ? History also obtained from review of patients previous acute hospitalization chart, current rehabilitation chart , discussion with family members in the room and discussion with nursing staff taking care of the patient. ? SUBJECTIVE 05/13 initial progress note The patient is being seen for follow-up of all current problems, BP, BS , HR, labs and strength. Follow up on pain, swallowing, bladder and bowel function. Patient denies any chest pain, palpitations, shortness of breath, cough, abdominal pain, nausea, vomiting, diarrhea or constipation. No overnight events. Denies pain. Pain controlled on meds prescribed. Bowel movement 05/10. Lactulose ordered. Refused last night suppository. Had bm today 05/13 bp low bp 103/61 DC norvasc - hold lisinopril x 2 days Has 800 ml urine output with current urine agents- DC ditropan per PMR. Bladder scan [phone] ml had to be straight cath 800 ml out PVR 600 ml Due for dialysis today followed by Dr Donato Case discussed with Dr. Moulton, physiatry. Minh burns added Liver enzymes OK Seen by Neuropsych Appetite good and states slept well. Patient participating with therapy and is doing well. No further needs expressed at this time. 05/14 The patient is being seen for follow-up of all current problems, BP, BS , HR, labs and strength. Follow up on pain, swallowing, bladder and bowel function. Patient denies any chest pain, palpitations, shortness of breath, cough, abdominal pain, nausea, vomiting, diarrhea or constipation. No overnight events. 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 Pain controlled on meds prescribed. Bowel movement 05/13 x 2. Pt seen this am sitting up in chair working with Zympi. Discussed pt with Carlos. Walking 100 ft with therapy, eager for exercises today. Requesting topical agent for L knee pain- voltaren gel ordered. Lidocaine patch for L thigh pain- edema improved. 1500 ml off with dialysis yesterday- tolerated. PVR 238-242-303 ml, continue with PVR another day. Weight 130 lb Sugars stable 119-135 Afebrile. HR 60s bp 119/60, 108/62. sats 100 % RA Atenolol held today. Decrease lisinopril to 2.5 Appetite good and states slept well. Patient participating with therapy and is doing well. No further needs expressed at this time. REVIEW OF SYSTEMS General: no weight loss, [...] the other 14 organ systems are negative PAST MEDICAL HISTORY Medical??History Past Medical History: Diagnosis Date ??? Diabetes mellitus ? Diabetes mellitus 05/12/2019 ??? Hypertension ? Other abnormal clinical findings ? Seroma 05/12/2019 ?? Proximal Left thigh 60 x 23 x39 mm by US ? PAST SURGICAL HISTORY Surgical??History No past surgical history on file. ?? ALLERGIES No Known Allergies CURRENT MEDICATIONS Current Facility-Administered Medications: ??? acetaminophen (TYLENOL) tablet 325 mg, 325 mg, PO/Per Tube, Q6H PRN, Misty Hathaway MD, 325 mgat 05/11/19 2321 ??? allopurinol (ZYLOPRIM) tablet 100 mg, 100 mg, Oral, Once a day, Misty Hathaway MD, 100 mg at 05/14/19 0823 ??? atenolol (TENORMIN) tablet 12.5 mg, 12.5 mg, Oral, Once a day, Manoj Morrison NP, 12.5 mg at 05/13/19 0920 ??? atorvastatin (LIPITOR) tablet 20 mg, 20 mg, Oral, Once a day, Misty Hathaway MD, 20 mg at 05/14/19 0824 ??? bisacodyl (DULCOLAX) suppository 10 mg, 10 mg, Rectal, Once, Manoj Morrison, CORK COMPOUNDER ??? dextrose (GLUTOSE) 40 % oral gel 15 g, 15 g, Oral, PRN, Manoj Morrison, CORK COMPOUNDER ??? dextrose 5 % and sodium chloride 0.45 % infusion, 50 mL/hr, Intravenous, PRN, Manoj Elliottl, CORK COMPOUNDER ??? dextrose 50 % IV solution 25 g, 25 g, Intravenous, PRN, Manoj Morrison, CORK COMPOUNDER ??? Diclofenac Sodium (VOLTAREN) 1 % gel 2 g, 2 g, Topical, 2 times per day, Manoj Morrison, CORK COMPOUNDER ??? docusate sodium (COLACE) capsule 100 mg, 100 mg, Oral, Once a day, Misty Hathaway MD, 100 mg at 05/14/19822 ??? donepezil (ARICEPT) tablet 10 mg, 10 mg, Oral, Nightly, Misty Hathaway MD, 10 mg at 05/13/192107 ??? folic acid (FOLVITE) tablet 1 mg, 1 mg, Oral, Once a day, Misty Hathaway MD, 1 mg at 05/14/19822 ??? furosemide (LASIX) tablet 80 mg, 80 mg, Oral, BID DIURETIC, Misty Hathaway MD, 80 mg at 05/14/19822 ??? glucagon (human recombinant) injection 1 mg, 1 mg, Intramuscular, PRN, Manoj Morrison, CORK COMPOUNDER ??? heparin (porcine) injection 1,000 Units, 1,000 Units, Intracatheter, Once per day on Fri, Carmen Donato MD ??? heparin (porcine) injection 1,000 Units, 1,000 Units, Intracatheter, Once per day on Fri, Carmen Donato MD ? ? insulin lispro (HumaLOG) injection 0-6 Units, 0-6 Units, Subcutaneous, AC & HS AND POCTglucose, , , AC & HS, Manoj Morrison, CORK COMPOUNDER ??? lidocaine (LIDOCARE) 4 % patch 2 patch, 2 patch, Transdermal, Once a day, Manoj Morrison NP ??? [START ON 05/16/2019] lisinopril (PRINIVIL,ZESTRIL) tablet 5 mg, 5 mg, Oral, Once a day, Manoj Morrison NP ??? oxyCODONE-acetaminophen (PERCOCET) 5-325 MG 1 tablet, 1 tablet, Oral, Q6H PRN, Misty Hathaway MD, 1 tablet at 05/13/19 1753 ??? polyethylene glycol (MIRALAX) packet 17 g, 17 g, Oral, Once a day, Misty Hathaway MD, 17 g at 05/14/19 0824 ??? sodium chloride 0.9 % infusion 250 mL, 250 mL, Intravenous (Continuous Infusion), PRN During Dialysis, Carmen Donato MD ??? tamsulosin (FLOMAX) 24 hr capsule 0.4 mg, 0.4 mg, Oral, Nightly, Misty Hathaway MD, 0.4 mg at 05/13/192107 PHYSICAL EXAM WEIGHTS 136 lb 1 oz (61.7 kg) ?? General appearance: awake, alert, cooperative, no distress HEENT: Normocephalic, No icterus, No oral lesions, [...] without mass, non-tender, with normal bowel sounds, External Genitalia not examined, groin Extremities: no clubbing, cyanosis or edema, no calf tenderness Musculoskeletal:no swelling of joints.no redness, FROM otherjoints Psychologic: Mood and affect appropriate, no suicidal ideation. Skin: No rash, swelling or erythema identified . Warm and Dry, R chest dialysis cath with tegaderm dressing clean dry and intact. Neurologic/WHITESMITH:Alert & oriented x 2 confused at times, poor historian, Speech normal, Tongue and uvula central Strength is 4/5 in all extremities ?? No clonus Gait not tested ? Please see height, weight, and BP reported elsewhere as part of this encounter ?? LABS CBC: Recent Labs Lab Units 05/13/19 0500 WBC X(10)9/L BLOOD x10E9/L 5.9 HGB GM/DL BLOOD gm/dL 8.8* PLT CT X(10)9/L BLOOD x10E9/L 267 MCV FL BLOOD fl 97.7 BMP: Recent Labs Lab Units 05/13/19 0500 SODIUM MMOL/L BLOOD mmol/L 137 POTASSIUM MMOL/L BLOOD mmol/L 3.6 CHLORIDE mmol/L 96* CO2 mmol/L 26 BUN MG/DL BLOOD mg/dL 48* CREATININE mg/dL 5.64* GLUCOSE MG/DL BLOOD mg/dL 121* CALCIUM MG/DL BLOOD mg/dL 8.3* ALBUMIN GM/DL BLOOD gm/dL 3.4 DATA Vitals: 05/13/19200905/14/19 0614 05/14/19 0700 05/14/19 0823 BP: 119/60 108/62 108/62 Pulse: 58 64 64 Resp: 18 18 Temp: 97.8 ??F (36.6 ??C) 97.2 ??F (36.2 ??C) TempSrc: Oral Oral SpO2: 99% 100% Weight: 130 lb 3.2 oz (59.1 kg) Height: POC Glucose POC Glucose 05/14/19 0636 135 05/13/19 2109 119 Weights (last 3 days) Date/Time Weight Height BSA (Calculated - sq m) 05/14/19 0614 130 lb 3.2 oz (59.1 kg) -- -- 05/12/19 0504 136 lb 1 oz (61.7 kg) 5' 10 (1.778 m) 1.74 sq meters 05/11/19 1933 136 lb 1.6 oz (61.7 kg) -- -- @ANTICOAGSUMMARY@ @FLOWDATE(2706:LAST)@ Intake/Output Summary (Last 24 hours) at 05/14/2019 1208 Last data filed at 05/13/2019 2015 Gross per 24 hour Intake -- Output 1500 ml Net -1500 ml IMAGING STUDIES & OTHER STUDIES ?? ASSESSMENT AND PLAN Principal Problem: Toxic metabolic encephalopathy Active Problems: Debility Anemia of chronic renal failure Chronic kidney disease, Stage V Essential hypertension Hyperkalemia Hypervolemia Malignant neoplasm of prostate Moderate malnutrition Other hyperlipidemia Retention of urine Diastolic dysfunction Seroma Abnormality of gait End stage renal failure on dialysis Debility Active Problems: Type 2 diabetes mellitus Anemia of chronic renal failure Chronic kidney disease, Stage V Essential hypertension Hyperkalemia Hypervolemia Malignant neoplasm of prostate Moderate malnutrition Other hyperlipidemia Retention of urine Diastolic dysfunction Seroma Abnormality of gait Toxic metabolic encephalopathy ?? Acute renal failure, CKD LE edema ESRD,with volume overload, on dialysis now Renal consulted Echo done 04/29 Still on lasix 80 bid watch BP 05/[address] Donato, dialysis today 05/14 PVR 238-242-303 ml, continue with PVR another day. Weight 130 lb Diastolic grade 1 heart failure Ef 60% per echo 04/29 Lasix, dialysis 05/14 weight 130 lb L thigh seroma Dopplers done 04/29 negative for dvt Hypertension,/ hypotension Continue meds 05/13 bp 103/61 on norvasc, tenormin , lasix 80 bid, lisinopril 5 DC norvasc - parameters added to bp meds Hold lisinopril x 2 days 05/14 Decrease lisinopril to 2.5. bp 108/60 Hyperkalemia, related to the chronic kidney disease, on dialysis 05/13 k 3.6 Gout allopurinol Metabolic acidosis, from the renal failure, better with dialysis Anemia, most recent hemoglobin 8.7, , monitor H/H 05/13 h and h 8.8/ 29.1 Altered sugars aacu, SSI 05/13 poct 121 05/14 poct 119-135 ?? h/oProstate cancer Bladder management / hx of orchiectomy / urine retention in acutre Voiding ok Ditropan and flomax 05/13 had high volume PVR , dc ditropan. Dementia/ cognitive impairment aricept neuropsych consult DVT prophylaxis: on Lovenox Minh hose Full code Echo 05/01/19: Mild concentric left ventricular hypertrophy. Impaired diastolic relaxation Grade I. Ejection fraction is visually estimated at 60 %. There is mild enlargement of left atrium. Mild aortic valve regurgitation. ? Pain management Today's pain score 0 05/13 percocet 6 q 6 prn, tylenol ? FEN. Nutrition consult for evaluation of nutritional status and the best diet. And for BMI evaluation and education regarding maintaining a healthy BMI ? Bowel management . Titrate bowel medications for constipation/diarrhea. 05/13 had bm ?? Skin. Nursing to address skin care throughout stay. Turn every 2 hrs ?? Sleep. Monitor sleep-wake cycle. ?? High Fall risk- Fall precautions GI Prophylaxis: Full Resuscitation ? Comprehensive Rehab Program (including but not limited to): ?? --Nursing: working on bowel and bladder continence, skin integrity, carry over from therapies, environmental safety, and providing patient and family education. --Physical and Occupational Therapy: working on strength, endurance, balance, gait, and technique to improve safety and independence with ADLs and Mobility. --ST: working on oral-motor control, executive skills, memory, orientation, and cognitive skills. --Paralegal Instructor: discharge plans in the context of social, family, and discharge needs to help coordinate a safe discharge. --Neuropsychology (if applicable): tracking cognitive progress, evaluate memory, behavior, and cognitive function. guide patient and team toward better outcomes through understanding of behavioral and cognitive impairments and the obstacles that manifest by them --Rehabilitation Physician: to determine rehabilitation needs medical rehabilitation needs, will beseen by a farm operator at a minimum of 3 times a week. The rehabilitation physician will coordinate care and help manage/prevent complications as a result of the patient???s illness and impairments ?? The patient will receive 24 hour/day rehabilitation [...] long-term physical, cognitive, emotional and medical well-being. ?? The patient will expected to participate and receive intensive therapy (an average of 3 hours per day of an average of 5 days weekly) not available in other settings in the inpatient rehabilitation program. The patient???s care will be coordinated through an interdisciplinary team with frequent human resources team member interactions and weekly conferences. An individualized plan of care with a minimum of two rehab therapies will be developed for the patient. ?? Please refer to the [facility]???s Post Admission Note determining the medical necessity as outlined in the [facility] documents to support admission for Acute Inpatient Rehabilitation ?? Electronically signed by: MANOJ MORRISON NP, 05/14/2019 12:08 PM Cosigned by Misty Hathaway MD at 05/16/2019 9:52 AM GLOVE TAGGER Associated attestation - Misty Hathaway MD - 05/16/2019 10:52 AM EST The patient is being seen for follow-up of all current problems, BP, BS , HR, labs and strength. Follow up on pain, swallowing, bladder and bowel function. Strength improving, able to do therapy ok. I saw, evaluated and examined the patient face to face in conjunction with the CORK COMPOUNDER and agree with the management and disposition of the patient. History also obtained from Nurse and staff about how the patient did overnight and during the day. I performed mario portions of the follow up history, examination, review of labs and radiology and evaluation. I agree with the subjective, physical exam and assessment and plan details as outlined in the note below. Discussed the mario medical decision making- both assessment and plan, rehabilitation goals and treatment plan with patient, CORK COMPOUNDER , nursing staff, farm operator and the members of the team. * Linette Barry LCSW - 05/14/2019 9:45 AM CST Case Management Progress Note Met with patient and discussed wound care technician and family training. Patient requested CM call his nephew to discuss availability. CM left a message for nephew, Wild, and requested return call to schedule wound care technician and family training. CM to continue to follow. LINETTE BARRY LCSW 05/14/19 9:45 AM * Florencia Moulton MD - 05/13/2019 11:10 PM CST Rehabilitation Physician Progress Note Patient Name: Jules Mitchell Age: 73 y.o. Patient's Primary Care Physician: No primary care provider on file. LOS: 2 DAYS This was a face to face visit with the patient Seen and examined today for rehab and medical issues related to debility with encephalopathy. CC My leg hurts HPI and Interval history: Watching pvrs-dced ditropan Less than 300 cc Tolerating HD Blood sugars are below 150 Subjective Review of Systems Hip pain PHYSICAL EXAM: (Retired) Vitals (last 3 days) Date/Time Temp Pulse Resp BP SpO2 Weight 05/13/192009 97.8 ??F (36.6 ??C) 58 18 119/60 99 % -- 05/13/191957 -- 68 -- 105/58 -- -- 05/13/19 1940 -- 68 -- 105/59 -- -- 05/13/19 1920 -- 69 -- 99/61 -- -- 05/13/19 1900 -- 77 -- 115/66 -- -- 05/13/19 1840 -- 67 -- 118/66 -- -- 05/13/19 1820 -- 66 -- 123/66 -- -- 05/13/19 1800 -- 63 -- 122/67 -- -- 05/13/19 1740 -- 64 -- 102/58 -- -- 05/13/19 1720 -- 66 -- 108/58 -- -- 05/13/19 1700 -- 60 -- 139/64 -- -- 05/13/19 1640 -- 58 -- 125/66 -- -- 05/13/19 1627 -- 58 -- 134/61 -- -- 05/13/19 1620 98.9 ??F (37.2 ??C) 56 18 140/58 100 % -- 05/13/19 0840 98.6 ??F (37 ??C) 59 18 101/63 100 % -- 05/12/192052 98.2 ??F (36.8 ??C) 54 17 103/61 98 % -- 05/12/19 0943 -- 67 -- 124/71 -- -- 05/12/19 0942 -- -- -- 124/71 -- -- 05/12/19 0730 98.7 ??F (37.1 ??C) 67 16 124/71 98 % -- 05/12/19 0504 98.3 ??F (36.8 ??C) 60 18 117/65 100 % 136 lb 1 oz (61.7 kg) 05/11/19 193 98.3 ??F (36.8 ??C) 60 18 117/65 100 % 136 lb 1.6 oz (61.7 kg) Blood sugars: POC Glucose POC Glucose 05/13/19 2109 119 Weights (last 3 days) Date/Time Weight Height BSA (Calculated - sq m) 05/12/19 050 136 lb 1 oz (61.7 kg) 5' 10 (1.778 m) 1.74 sq meters 05/11/191932 136 lb 1.6 oz (61.7 kg) -- -- GENERAL: alert HEENT: EOMI MMM NECK: no JVD LUNGS: Clear CV: RR ABDOMEN: Soft NT to palpation EXTREMITIES: Less edema SKIN: No new issues TONE: normal MUSCULOSKELETAL: UE functional LLE limited knee and hip flexion due to pain NEURO: Slowed responses Lab Data Reviewed current lab results available to me today. Lab Results Component Value Date WBC 5.9 05/13/2019 HGB 8.8 (L) 05/13/2019 HCT 29.1 (L) 05/13/2019 MCV 97.7 05/13/2019 PLT 267 05/13/2019 Lab Results Component Value Date GLUCOSE 121 (H) 05/13/2019 CALCIUM 8.3 (L) 05/13/2019 NA 137 05/13/2019 K 3.6 05/13/2019 CO2 26 05/13/2019 CL 96 (L) 05/13/2019 BUN 48 (H) 05/13/2019 CREATININE 5.64 (H) 05/13/2019 ANIONGAP 15 05/13/2019 Imaging Reviewed current imaging results available to me today. No results found. Allergies No Known Allergies Medication List Scheduled/Continuous Medications Scheduled Medication Dose/Rate, Route, Frequency Last Action allopurinol (ZYLOPRIM) tablet 100 mg 100 mg, PO, Once a day Given: 05/13 918 atenolol (TENORMIN) tablet 12.5 mg 12.5 mg, PO, Once a day Given: 05/13 919 atorvastatin (LIPITOR) tablet 20 mg 20 mg, PO, Once a day Given: 05/13 919 bisacodyl (DULCOLAX) suppository 10 mg 10 mg, RE, Once Ordered docusate sodium (COLACE) capsule 100 mg 100 mg, PO, Once a day Given: 05/13 919 donepezil (ARICEPT) tablet 10 mg 10 mg, PO, Nightly Given: 05/13 2107 folic acid (FOLVITE) tablet 1 mg 1 mg, PO, Once a day Given: 05/13 920 furosemide (LASIX) tablet 80 mg 80 mg, PO, BID DIURETIC Given: 05/13 1653 heparin (porcine) injection 1,000 Units 1,000 Units, IK, 3x/week in HD Ordered heparin (porcine) injection 1,000 Units 1,000 Units, IK, 3x/week in HD Ordered insulin lispro (HumaLOG) injection 0-6 Units 0-6 Units, SC, AC & HS Ordered lisinopril (PRINIVIL,ZESTRIL) tablet 5 mg 5 mg, PO, Once a day Ordered polyethylene glycol (MIRALAX) packet 17 g 17 g, PO, Once a day Given: 05/13 921 tamsulosin (FLOMAX) 24 hr capsule 0.4 mg 0.4 mg, PO, Nightly Given: 05/13 2107 Current Functional Status reviewed today: Mobility: Ambulating Min assist Ambulates second bout of 31 feet with FWW and CGA-min A with therapist pulling wc behind. Deviations include decrease right step length, diminished foot clearance, decreased upright posture with forward flexion at hips and increase cues for upright posture with improvement for 10 feet prior to decrease proximity to FWW. ?? Self cares and ADLS: Close supervision Communication/Cognition: 03/27 SLUMS Swallow: functional Progress Toward Rehabilitation Goals The patient appears to be making a meaningful amount of functional progress in a reasonable amount of time IMPROVEMENTS: Working with therapies BARRIERS: Cognition problem solving leg pain and mobility dysfunction Assessment and Plan Etiologic Diagnosis: Encephalopathy in setting of new renal failure Gait disorder unclear HD per dr donato Urinary retention dced ditropan, all below 300 cc ACUTE ISSUES Today: urinary retention Co-Morbidities that are continuing to impact the rehab process: Problem List: 2019-04: Retention of urine 2019-04: Diastolic dysfunction 2019-04: Seroma 2019-04: Abnormality of gait 2019-04: Toxic metabolic encephalopathy 2019-04: End stage renal failure on dialysis 2019-04: Debility 2019-04: Moderate malnutrition 2019-04: Anemia of chronic renal failure 2019-04: Chronic kidney disease, Stage V 2019-04: Essential hypertension 2019-04: Hyperkalemia 2019-04: Hypervolemia 2019-04: Malignant neoplasm of prostate 2019-04: Other hyperlipidemia 2019-04: Metabolic acidosis 2019-04: Latent autoimmune diabetes mellitus in adult Continue therapies. Continue inpatient comprehensive interdisciplinary rehabilitation to address strengthening, mobility skills, self care, cognitive functioning, speech, communication and swallowing needs. The patient continues to require the interdisciplinary team approach and 24 hour monitoring. ADDITIONAL INFORMATION: left leg previous injury, ?seroma EDUCATION/PT TEACHING: leg pain and EQUIPMENT: TBD DESTINATION: home CADNI: 05/28/2019 FOLLOW UP PLANS: dr donato Greater than 35 minutes used in patient exam, review of records, discussion with staff, teaching, and planning. FLORENCIA MOULTON MD 05/13/19 11:10 PM * Carmen Donato MD - 05/13/2019 8:01 PM CST Nephrology Progress Note Jules Mitchell [id number] Subjective: Patient seen and examined in dialysis, denies fever, chills, chest pain, sob, cough, changes in appetite, N/V, diarrhea, abdominal pain, dysuria, hematuria, incontinence Objective: Vital signs: Vitals: 05/13/19 1840 05/13/19 1900 05/13/19 1920 05/13/19 1940 BP: 118/66 115/66 99/61 105/59 Pulse: 67 77 69 68 Resp: Temp: TempSrc: SpO2: Weight: Height: Intake/Output Summary (Last 24 hours) at 05/13/20192000 Last data filed at 05/13/2019 0840 Gross per 24 hour Intake 240 ml Output 800 ml Net -560 ml Intake/Output last 3 shifts: I/O last 3 completed shifts: In: 960 [P.O.:960] Out: 800 [Urine:800] Intake/Output this shift: No intake/output data recorded. Weight: Wt Readings from Last 3 Encounters: 05/12/19 136 lb 1 oz (61.7 kg) Medications: Scheduled/Continuous Medications Scheduled Medication Dose/Rate, Route, Frequency Last Action allopurinol (ZYLOPRIM) tablet 100 mg 100 mg, PO, Once a day Given: 05/13 918 atenolol (TENORMIN) tablet 12.5 mg 12.5 mg, PO, Once a day Given: 05/13 919 atorvastatin (LIPITOR) tablet 20 mg 20 mg, PO, Once a day Given: 05/13 919 bisacodyl (DULCOLAX) suppository 10 mg 10 mg, RE, Once Ordered docusate sodium (COLACE) capsule 100 mg 100 mg, PO, Once a day Given: 05/13 919 donepezil (ARICEPT) tablet 10 mg 10 mg, PO, Nightly Given: 05/12 2035 folic acid (FOLVITE) tablet 1 mg 1 mg, PO, Once a day Given: 05/13 920 furosemide (LASIX) tablet 80 mg 80 mg, PO, BID DIURETIC Given: 05/13 165 heparin (porcine) injection 1,000 Units 1,000 Units, IK, 3x/week in HD Ordered heparin (porcine) injection 1,000 Units 1,000 Units, IK, 3x/week in HD Ordered insulin lispro (HumaLOG) injection 0-6 Units 0-6 Units, SC, AC & HS Ordered lactulose (CHRONULAC) 10 GM/15ML solution 20 g 20 g, PO, BID Given: 05/13 135 lisinopril (PRINIVIL,ZESTRIL) tablet 5 mg 5 mg, PO, Once a day Ordered polyethylene glycol (MIRALAX) packet 17 g 17 g, PO, Once a day Given: 05/13 921 tamsulosin (FLOMAX) 24 hr capsule 0.4 mg 0.4 mg, PO, Nightly Given: 05/12 2035 Current Facility-Administered Medications: ??? acetaminophen (TYLENOL) tablet 325 mg, 325 mg, PO/Per Tube, Q6H PRN, Misty Hathaway MD, 325 mgat 05/11/19 4431 ??? allopurinol (ZYLOPRIM) tablet 100 mg, 100 mg, Oral, Once a day, Misty Hathaway MD, 100 mg at 05/13/19918 ??? atenolol (TENORMIN) tablet 12.5 mg, 12.5 mg, Oral, Once a day, Manoj Morrison NP, 12.5 mg at 05/13/19919 ??? atorvastatin (LIPITOR) tablet 20 mg, 20 mg, Oral, Once a day, Misty Hathaway MD, 20 mg at 05/13/19919 ??? bisacodyl (DULCOLAX) suppository 10 mg, 10 mg, Rectal, Once, Manoj Morrison, CORK COMPOUNDER ??? dextrose (GLUTOSE) 40 % oral gel 15 g, 15 g, Oral, PRN, Manoj Morrison, CORK COMPOUNDER ??? dextrose 5 % and sodium chloride 0.45 % infusion, 50 mL/hr, Intravenous, PRN, Manoj Morrison, CORK COMPOUNDER ??? dextrose 50 % IV solution 25 g, 25 g, Intravenous, PRN, Manoj Morrison, CORK COMPOUNDER ??? docusate sodium (COLACE) capsule 100 mg, 100 mg, Oral, Once a day, Misty Hathaway MD, 100 mg at 05/13/19919 ??? donepezil (ARICEPT) tablet 10 mg, 10 mg, Oral, Nightly, Misty Hathaway MD, 10 mg at 05/12/192035 ??? folic acid (FOLVITE) tablet 1 mg, 1 mg, Oral, Once a day, Misty Hathaway MD, 1 mg at 05/13/19920 ??? furosemide (LASIX) tablet 80 mg, 80 mg, Oral, BID DIURETIC, Misty Hathaway MD, 80 mg at 05/13/19 1654 ??? glucagon (human recombinant) injection 1 mg, 1 mg, Intramuscular, PRN, Manoj Morrison, CORK COMPOUNDER ??? [START ON 05/14/2019] heparin (porcine) injection 1,000 Units, 1,000 Units, Intracatheter, Once per day on Fri, Carmen Donato MD ??? [START ON 05/14/2019] heparin (porcine) injection 1,000 Units, 1,000 Units, Intracatheter, Once per day on Fri, Carmen Donato MD ? ? insulin lispro (HumaLOG) injection 0-6 Units, 0-6 Units, Subcutaneous, AC & HS AND POCTglucose, , , AC & HS, Manoj Morrison NP ??? lactulose (CHRONULAC) 10 GM/15ML solution 20 g, 20 g, Oral, 2 times per day, Florencia Moulton MD, 20 g at 05/13/19 1352 ??? [START ON 05/16/2019] lisinopril (PRINIVIL,ZESTRIL) tablet 5 mg, 5 mg, Oral, Once a day, Manoj Morrison NP ??? oxyCODONE-acetaminophen (PERCOCET) 5-325 MG 1 tablet, 1 tablet, Oral, Q6H PRN, Misty Hathaway MD, 1 tablet at 05/13/19 1753 ??? polyethylene glycol (MIRALAX) packet 17 g, 17 g, Oral, Once a day, Misty Hathaway MD, 17 g at 05/13/19 0922 ??? sodium chloride 0.9 % infusion 250 mL, 250 mL, Intravenous (Continuous Infusion), PRN During Dialysis, Carmen Donato MD ??? tamsulosin (FLOMAX) 24 hr capsule 0.4 mg, 0.4 mg, Oral, Nightly, Misty Hathaway MD, 0.4 mg at 05/12/192035 ??? acetaminophen ??? glucose ??? dextrose 5 % and sodium chloride 0.45 % ??? dextrose ??? glucagon ??? oxyCODONE-acetaminophen ??? sodium chloride Physical Exam: General: awake and alert. In NAD Lungs: CTA B/L Heart: RRR, S1 and S2 without rubs Abdomen: Soft, NT/ND, + BS Ext: Without edema Labs: Recent Labs Lab Units 05/13/19 0500 05/12/19 0530 SODIUM MMOL/L BLOOD mmol/L 137 139 POTASSIUM MMOL/L BLOOD mmol/L 3.6 3.9 CHLORIDE mmol/L 96* 95* CO2 mmol/L 26 29 BUN MG/DL BLOOD mg/dL 48* 29* CREATININE mg/dL 5.64* 4.03* GLUCOSE MG/DL BLOOD mg/dL 121* 119* CALCIUM MG/DL BLOOD mg/dL 8.3* 8.9 ANION GAP BLOOD mmol/L 15 15 Recent Labs Lab Units 05/13/19 0500 05/12/19 0530 SODIUM MMOL/L BLOOD mmol/L 137 139 POTASSIUM MMOL/L BLOOD mmol/L 3.6 3.9 CHLORIDE mmol/L 96* 95* CO2 mmol/L 26 29 BUN MG/DL BLOOD mg/dL 48* 29* CREATININE mg/dL 5.64* 4.03* GLUCOSE MG/DL BLOOD mg/dL 121* 119* CALCIUM MG/DL BLOOD mg/dL 8.3* 8.9 Recent Labs Lab Units 05/13/19 0500 05/12/19 0530 SODIUM MMOL/L BLOOD mmol/L 137 139 POTASSIUM MMOL/L BLOOD mmol/L 3.6 3.9 CHLORIDE mmol/L 96* 95* CO2 mmol/L 26 29 BUN MG/DL BLOOD mg/dL 48* 29* CREATININE mg/dL 5.64* 4.03* GLUCOSE MG/DL BLOOD mg/dL 121* 119* CALCIUM MG/DL BLOOD mg/dL 8.3* 8.9 Recent Labs Lab Units 05/13/19 0500 05/12/19 0530 WBC X(10)9/L BLOOD x10E9/L 5.9 6.6 HGB GM/DL BLOOD gm/dL 8.8* 9.4* HCT % BLOOD % 29.1* 31.2* PLT CT X(10)9/L BLOOD x10E9/L 267 273 Assessment/ Plan: Principal Problem: Toxic metabolic encephalopathy Active Problems: Debility Anemia of chronic renal failure Chronic kidney disease, Stage V Essential hypertension Hyperkalemia Hypervolemia Malignant neoplasm of prostate Moderate malnutrition Other hyperlipidemia Retention of urine Diastolic dysfunction Seroma Abnormality of gait End stage renal failure on dialysis LOS: 2 days Assessment/Plan ESRD: on dialysis now HTN: reasonably controlled Acute volume overload related to ESRD: [id number] on dialysis Anemia related to ESRD, iron deficiency: on iron replacment DM Left thigh seroma Hyperlipidemia:on statin Hyperkalemia from ESRD: on dialysis and this is better Generalized weakness from uremia: on rehab Metabolic acidosis: stable on dialysis Constipation: on bowel regimen CARMEN DONATO MD * Manoj Morrison NP - 05/13/2019 8:32 AM CST HOSPITALIST PROGRESS NOTE Patient Name: Jules Mitchell : 1945 Medical Record: [id number] Admit date 05/11/19 DATE OF SERVICE 05/13/2019 ATTENDING PHYSICIAN Florencia Moulton MD ? CHIEF COMPLAINT Principal Problem: Debility Active Problems: Type 2 diabetes mellitus Anemia of chronic renal failure Chronic kidney disease, Stage V Essential hypertension Hyperkalemia Hypervolemia Malignant neoplasm of prostate Moderate malnutrition Other hyperlipidemia Retention of urine Diastolic dysfunction Seroma Abnormality of gait Toxic metabolic encephalopathy ? HISTORY OF PRESENT ILLNESS ?? The patient is a 73 y.o. y/o male with history of f prostate cancer, DM, and HTN [facility] of intermittent left leg pain since last week. he has left sided buttock pain that radiates down posterior aspect of leg to knee. Hx coagulopathy, Hx venous thromboembolism. Pt was in acute renal failure with volume overload. Seen by renal , initiated dialysis , ?? currently here for therapy Todays chief Complains gen weakness Left leg pain ?? Confused about details of history ?? Duration of problems- Intensity Type Associated symptoms Aggrevating/relieving factors ? History also obtained from review of patients previous acute hospitalization chart, current rehabilitation chart , discussion with family members in the room and discussion with nursing staff taking care of the patient. ? SUBJECTIVE 05/13 initial progress note The patient is being seen for follow-up of all current problems, BP, BS , HR, labs and strength. Follow up on pain, swallowing, bladder and bowel function. Patient denies any chest pain, palpitations, shortness of breath, cough, abdominal pain, nausea, vomiting, diarrhea or constipation. No overnight events. Denies pain. Pain controlled on meds prescribed. Bowel movement 05/10. Lactulose ordered. Refused last night suppository. Had bm today 05/13 bp low bp 103/61 DC norvasc - hold lisinopril x 2 days Has 800 ml urine output with current urine agents- DC ditropan per PMR. Bladder scan [phone] ml had to be straight cath 800 ml out PVR 600 ml Due for dialysis today followed by Dr Donato Case discussed with Dr. Moulton, physiatry. Minh burns added Liver enzymes OK Seen by Neuropsych Appetite good and states slept well. Patient participating with therapy and is doing well. No further needs expressed at this time. REVIEW OF SYSTEMS General: no weight loss, [...] the other 14 organ systems are negative PAST MEDICAL HISTORY Medical??History Past Medical History: Diagnosis Date ??? Diabetes mellitus ? Diabetes mellitus 05/12/2019 ??? Hypertension ? Other abnormal clinical findings ? Seroma 05/12/2019 ?? Proximal Left thigh 60 x 23 x39 mm by US ? PAST SURGICAL HISTORY Surgical??History No past surgical history on file. ?? ALLERGIES No Known Allergies CURRENT MEDICATIONS Current Facility-Administered Medications: ??? acetaminophen (TYLENOL) tablet 325 mg, 325 mg, PO/Per Tube, Q6H PRN, Misty Hathaway MD, 325 mgat 05/11/19 2321 ??? allopurinol (ZYLOPRIM) tablet 100 mg, 100 mg, Oral, Once a day, Misty Hathaway MD, 100 mg at 05/12/19 0942 ??? amLODIPine (NORVASC) tablet 5 mg, 5 mg, Oral, Once a day, Misty Hathaway MD, 5 mg at 05/12/19 0942 ??? atenolol (TENORMIN) tablet 12.5 mg, 12.5 mg, Oral, Once a day, Misty Hathaway MD, 12.5 mg at 05/12/19 0943 ??? atorvastatin (LIPITOR) tablet 20 mg, 20 mg, Oral, Once a day, Misty Hathaway MD, 20 mg at 05/12/19 0941 ??? bisacodyl (DULCOLAX) suppository 10 mg, 10 mg, Rectal, Once, Manoj Morrison NP ??? docusate sodium (COLACE) capsule 100 mg, 100 mg, Oral, Once a day, Misty Hathaway MD ??? donepezil (ARICEPT) tablet 10 mg, 10 mg, Oral, Nightly, Misty Hathaway MD, 10 mg at 05/12/192035 ??? folic acid (FOLVITE) tablet 1 mg, 1 mg, Oral, Once a day, Misty Hathaway MD ??? furosemide (LASIX) tablet 80 mg, 80 mg, Oral, BID DIURETIC, Misty Hathaway MD, 80 mg at 05/12/19 163 ??? lisinopril (PRINIVIL,ZESTRIL) tablet 5 mg, 5 mg, Oral, Once a day, Misty Hathaway MD, 5 mg at 05/12/19941 ??? oxybutynin (DITROPAN) tablet 5 mg, 5 mg, Oral, Once a day, Misty Hathaway MD, 5 mg at ??? oxyCODONE-acetaminophen (PERCOCET) 5-325 MG 1 tablet, 1 tablet, Oral, Q6H PRN, Misty Hathaway MD, 1 tablet at 05/12/19941 ??? polyethylene glycol (MIRALAX) packet 17 g, 17 g, Oral, Once a day, Misty Hathaway MD, 17 g at 05/12/19 0819 ??? tamsulosin (FLOMAX) 24 hr capsule 0.4 mg, 0.4 mg, Oral, Nightly, Misty Hathaway MD, 0.4 mg at 05/12/192035 PHYSICAL EXAM WEIGHTS 136 lb 1 oz (61.7 kg) ?? General appearance: awake, alert, cooperative, no distress HEENT: Normocephalic, No icterus, No oral lesions, [...] without mass, non-tender, with normal bowel sounds, External Genitalia not examined, groin Extremities: no clubbing, cyanosis or edema, no calf tenderness Musculoskeletal:no swelling of joints.no redness, FROM otherjoints Psychologic: Mood and affect appropriate, no suicidal ideation. Skin: No rash, swelling or erythema identified . Warm and Dry, R chest dialysis cath with tegaderm dressing clean dry and intact. Neurologic/WHITESMITH:Alert & oriented x 2 confused at times, poor historian, Speech normal, Tongue and uvula central Strength is 4/5 in all extremities ?? No clonus Gait not tested ? Please see height, weight, and BP reported elsewhere as part of this encounter ?? LABS CBC: Recent Labs Lab Units 05/13/19 0500 WBC X(10)9/L BLOOD x10E9/L 5.9 HGB GM/DL BLOOD gm/dL 8.8* PLT CT X(10)9/L BLOOD x10E9/L 267 MCV FL BLOOD fl 97.7 BMP: Recent Labs Lab Units 05/13/19 0500 SODIUM MMOL/L BLOOD mmol/L 137 POTASSIUM MMOL/L BLOOD mmol/L 3.6 CHLORIDE mmol/L 96* CO2 mmol/L 26 BUN MG/DL BLOOD mg/dL 48* CREATININE mg/dL 5.64* GLUCOSE MG/DL BLOOD mg/dL 121* CALCIUM MG/DL BLOOD mg/dL 8.3* DATA Vitals: 05/12/19 0730 05/12/19 0942 05/12/19 0943 05/12/19 2053 BP: 124/71 124/71 124/71 103/61 Pulse: 67 67 54 Resp: 16 17 Temp: 98.7 ??F (37.1 ??C) 98.2 ??F (36.8 ??C) TempSrc: Oral Oral SpO2: 98% 98% Weight: Height: Weights (last 3 days) Date/Time Weight Height BSA (Calculated - sq m) 05/12/19 0504 136 lb 1 oz (61.7 kg) 5' 10 (1.778 m) 1.74 sq meters 05/11/19 1933 136 lb 1.6 oz (61.7 kg) -- -- @ANTICOAGSUMMARY@ @FLOWDATE(2706:LAST)@ Intake/Output Summary (Last 24 hours) at 05/13/2019 0832 Last data filed at 05/13/2019 0208 Gross per 24 hour Intake 480 ml Output 800 ml Net -320 ml IMAGING STUDIES & OTHER STUDIES ?? ASSESSMENT AND PLAN Principal Problem: Toxic metabolic encephalopathy Active Problems: Debility Type 2 diabetes mellitus Anemia of chronic renal failure Chronic kidney disease, Stage V Essential hypertension Hyperkalemia Hypervolemia Malignant neoplasm of prostate Moderate malnutrition Other hyperlipidemia Retention of urine Diastolic dysfunction Seroma Abnormality of gait End stage renal failure on dialysis Debility Active Problems: Type 2 diabetes mellitus Anemia of chronic renal failure Chronic kidney disease, Stage V Essential hypertension Hyperkalemia Hypervolemia Malignant neoplasm of prostate Moderate malnutrition Other hyperlipidemia Retention of urine Diastolic dysfunction Seroma Abnormality of gait Toxic metabolic encephalopathy ?? Acute renal failure, CKD LE edema ESRD,with volume overload, on dialysis now Renal consulted Echo done 04/29 Still on lasix 80 bid watch BP 05/[address] Donato, dialysis today Diastolic grade 1 heart failure Ef 60% per echo 04/29 Lasix, dialysis L thigh seroma Dopplers done 04/29 negative for dvt Hypertension, Continue meds 05/13 bp 103/61 on norvasc, tenormin , lasix 80 bid, lisinopril 5 DC norvasc - parameters added to bp meds Hold lisinopril x 2 days Hyperkalemia, related to the chronic kidney disease, on dialysis 05/13 k 3.6 Gout allopurinol Metabolic acidosis, from the renal failure, better with dialysis Anemia, most recent hemoglobin 8.7, , monitor H/H 05/13 h and h 8.8/ 29.1 Altered sugars aacu, SSI 05/13 poct 121 ?? h/oProstate cancer Bladder management / hx of orchiectomy / urine retention in acutre Voiding ok Ditropan and flomax Voiding ok Dementia/ cognitive impairment aricept neuropsych consult DVT prophylaxis: on Lovenox Minh burns Full code Echo 05/01/19: Mild concentric left ventricular hypertrophy. Impaired diastolic relaxation Grade I. Ejection fraction is visually estimated at 60 %. There is mild enlargement of left atrium. Mild aortic valve regurgitation. ? Pain management Today's pain score 0 05/13 percocet 6 q 6 prn, tylenol ? FEN. Nutrition consult for evaluation of nutritional status and the best diet. And for BMI evaluation and education regarding maintaining a healthy BMI ? Bowel management . Titrate bowel medications for constipation/diarrhea. ?? Skin. Nursing to address skin care throughout stay. Turn every 2 hrs ?? Sleep. Monitor sleep-wake cycle. ?? High Fall risk- Fall precautions GI Prophylaxis: Full Resuscitation ? Comprehensive Rehab Program (including but not limited to): ?? --Nursing: working on bowel and bladder continence, skin integrity, carry over from therapies, environmental safety, and providing patient and family education. --Physical and Occupational Therapy: working on strength, endurance, balance, gait, and technique to improve safety and independence with ADLs and Mobility. --ST: working on oral-motor control, executive skills, memory, orientation, and cognitive skills. --Paralegal Instructor: discharge plans in the context of social, family, and discharge needs to help coordinate a safe discharge. --Neuropsychology (if applicable): tracking cognitive progress, evaluate memory, behavior, and cognitive function. guide patient and team toward better outcomes through understanding of behavioral and cognitive impairments and the obstacles that manifest by them --Rehabilitation Physician: to determine rehabilitation needs medical rehabilitation needs, will beseen by a farm operator at a minimum of 3 times a week. The rehabilitation physician will coordinate care and help manage/prevent complications as a result of the patient???s illness and impairments ?? The patient will receive 24 hour/day rehabilitation [...] long-term physical, cognitive, emotional and medical well-being. ?? The patient will expected to participate and receive intensive therapy (an average of 3 hours per day of an average of 5 days weekly) not available in other settings in the inpatient rehabilitation program. The patient???s care will be coordinated through an interdisciplinary team with frequent human resources team member interactions and weekly conferences. An individualized plan of care with a minimum of two rehab therapies will be developed for the patient. ?? Please refer to the [facility]???s Post Admission Note determining the medical necessity as outlined in the [facility] documents to support admission for Acute Inpatient Rehabilitation ?? Electronically signed by: MANOJ MORRISON NP, 05/13/2019 8:32 AM Cosigned by Misty Hathaway MD at 05/16/2019 9:52 AM GLOVE TAGGER Associated attestation - Misty Hathaway MD - 05/16/2019 10:52 AM EST The patient is being seen for follow-up of all current problems, BP, BS , HR, labs and strength. Follow up on pain, swallowing, bladder and bowel function. Strength improving, able to do therapy ok. I saw, evaluated and examined the patient face to face in conjunction with the CORK COMPOUNDER and agree with the management and disposition of the patient. History also obtained from Nurse and staff about how the patient did overnight and during the day. I performed mario portions of the follow up history, examination, review of labs and radiology and evaluation. I agree with the subjective, physical exam and assessment and plan details as outlined in the note below. Discussed the mario medical decision making- both assessment and plan, rehabilitation goals and treatment plan with patient, CORK COMPOUNDER , nursing staff, farm operator and the members of the team. documented in this encounter H&P Notes * Misty Hathaway MD - 05/12/2019 1:40 PM CST Hospitalist History and PhysicAl Examination Report Patient Name: Jules Mitchell : 1945 Medical Record: [id number] DATE OF ADMISSION 05/11/2019 Date of Service 05/12/2019 PRIMARY CARE PHYSICIAN No primary care provider on file. Attending Physician Florencia Moulton MD CHIEF COMPLAINT Principal Problem: Debility Active Problems: Type 2 diabetes mellitus Anemia of chronic renal failure Chronic kidney disease, Stage V Essential hypertension Hyperkalemia Hypervolemia Malignant neoplasm of prostate Moderate malnutrition Other hyperlipidemia Retention of urine Diastolic dysfunction Seroma Abnormality of gait Toxic metabolic encephalopathy History of Present illness The patient is a 73 y.o. y/o male with history of f prostate cancer, DM, and HTN [facility] of intermittent left leg pain since last week. he has left sided buttock pain that radiates down posterior aspect of leg to knee. Hx coagulopathy, Hx venous thromboembolism. Pt was in acute renal failure with volume overload. Seen by renal , initiated dialysis , currently here for therapy Todays chief Complains gen weakness Left leg pain Confused about details of history Duration of problems- Intensity Type Associated symptoms [...] Diabetes mellitus ??? Diabetes mellitus 05/12/2019 ??? Hypertension ??? Other abnormal clinical findings ??? Seroma 05/12/2019 Proximal Left thigh 60 x 23 x39 mm by US Past Surgical History No past surgical history on file. Allergies No Known Allergies Home Medications Prior to Admission medications Medication Sig Start Date End Date Taking? Authorizing Provider allopurinol (ZYLOPRIM) 100 MG tablet Take 100 mg by mouth daily. Yes Historical Provider, amLODIPine (NORVASC) 5 MG tablet Take 5 mg by mouth daily. Yes Historical Provider, atenolol (TENORMIN) 25 MG tablet Take 25 mg by mouth daily. Yes Historical Provider, atorvastatin (LIPITOR) 20 MG tablet Take 20 mg by mouth daily. Yes Historical Provider, docusate sodium (COLACE) 100 MG capsule Take 100 mg by mouth daily. Yes Historical Provider, donepezil (ARICEPT) 10 MG tablet Take 10 mg by mouth nightly. Yes Historical Provider, folic acid (FOLVITE) 1 MG tablet Take 1 mg by mouth daily. Yes Historical Provider, furosemide (LASIX) 80 MG tablet Take 80 mg by mouth 2 (two) times a day. Yes Historical Provider, lisinopril (PRINIVIL,ZESTRIL) 5 MG tablet Take 5 mg by mouth daily. Yes Historical Provider, oxybutynin (DITROPAN) 5 MG tablet Take 5 mg by mouth 3 (three) times a day. Yes Historical Provider, oxyCODONE-acetaminophen (PERCOCET) 5-325 MG per tablet Take 1 tablet by mouth every 6 (six) hours as needed for moderate pain (4 - 6). Yes Historical Provider, tamsulosin (FLOMAX) 0.4 MG capsule Yes Historical Provider, CURRENT Medications Current Facility-Administered Medications: ??? acetaminophen (TYLENOL) tablet 325 mg, 325 mg, PO/Per Tube, Q6H PRN, Misty Hathaway MD, 325 mgat 05/11/19 2321 ??? allopurinol (ZYLOPRIM) tablet 100 mg, 100 mg, Oral, Once a day, Misty Hathaway MD, 100 mg at 05/12/19 0942 ??? amLODIPine (NORVASC) tablet 5 mg, 5 mg, Oral, Once a day, Misty Hathaway MD, 5 mg at 05/12/19 0942 ??? atenolol (TENORMIN) tablet 12.5 mg, 12.5 mg, Oral, Once a day, Misty Hathaway MD, 12.5 mg at 05/[birth year]/1943 ??? atorvastatin (LIPITOR) tablet 20 mg, 20 mg, Oral, Once a day, Misty Hathaway MD, 20 mg at 05/12/19 0941 ??? [START ON 05/13/2019] docusate sodium (COLACE) capsule 100 mg, 100 mg, Oral, Once a day, MD Gagandeep ??? donepezil (ARICEPT) tablet 10 mg, 10 mg, Oral, Nightly, Misty Hathaway MD ??? [START ON 05/13/2019] folic acid (FOLVITE) tablet 1 mg, 1 mg, Oral, Once a day, Misty Hathaway MD ??? furosemide (LASIX) tablet 80 mg, 80 mg, Oral, BID DIURETIC, Misty Hathaway MD, 80 mg at 05/12/19942 ??? lisinopril (PRINIVIL,ZESTRIL) tablet 5 mg, 5 mg, Oral, Once a day, Misty Hathaway MD, 5 mg at 05/12/19941 ??? oxybutynin (DITROPAN) tablet 5 mg, 5 mg, Oral, Once a day, Misty Hathaway MD, 5 mg at ??? oxyCODONE-acetaminophen (PERCOCET) 5-325 MG 1 tablet, 1 tablet, Oral, Q6H PRN, Misty Hathaway MD, 1 tablet at 05/12/19941 ??? polyethylene glycol (MIRALAX) packet 17 g, 17 g, Oral, Once a day, Misty Hathaway MD, 17 g at 05/12/19 0819 ??? tamsulosin (FLOMAX) 24 hr capsule 0.4 mg, 0.4 mg, Oral, Nightly, Misty Hathaway MD Social History reports that he has quit smoking. He does not have any smokeless tobacco history on file. Alcohol use questions deferred to the physician. Denies smoking, alcohol or illicit drugs currently Family History No family history on file. No known history of thromboembolism Physical Exam Vital Signs: Temp: [98.3 ??F (36.8 ??C)] 98.3 ??F (36.8 ??C) Pulse: [60-67] 67 Resp: [18] 18 BP: (117-124)/(65-71) 124/71 I/Hazel intake or output data in the 24 hours ending 05/12/19 1340 Weights (last 3 days) Date/Time Weight Height BSA (Calculated - sq m) 05/12/19 0504 136 lb 1 oz (61.7 kg) 5' 10 (1.778 m) 1.74 sq meters 05/11/19 1933 136 lb 1.6 oz (61.7 kg) -- -- WEIGHTS 136 lb 1 oz (61.7 kg) General appearance: awake, alert, cooperative, no distress HEENT: Normocephalic, No icterus, No oral lesions, [...] or erythema identified . Warm and Dry, Neurologic/WHITESMITH:Alert & oriented x 3, Speech normal, Tongue and uvula central Strength is 4/5 in all extremities ?? No clonus Gait not tested ? Please see height, weight, and BP reported elsewhere as part of this encounter Labs CBC with Differential: Lab Results Component Value Date WBC 6.6 05/12/2019 HGB 9.4 (L) 05/12/2019 HCT 31.2 (L) 05/12/2019 PLT 273 05/12/2019 MCV 97.8 05/12/2019 MCH 29.5 05/12/2019 MCHC 30.1 (L) 05/12/2019 RDW 13.6 05/12/2019 [ BMP: Lab Results Component Value Date NA 139 05/12/2019 K 3.9 05/12/2019 CL 95 (L) 05/12/2019 CO2 29 05/12/2019 BUN 29 (H) 05/12/2019 CREATININE 4.03 (H) 05/12/2019 GLUCOSE 119 (H) 05/12/2019 CALCIUM 8.9 05/12/2019 ANIONGAP 15 05/12/2019 MG/PHOS: No results found for: MG, PHOS CKMB: No components found for: CKMB;2 PT/INR: No results found for: LABPROT, INR CMP: Lab Results Component Value Date NA 139 05/12/2019 K 3.9 05/12/2019 CL 95 (L) 05/12/2019 CO2 29 05/12/2019 BUN 29 (H) 05/12/2019 CREATININE 4.03 (H) 05/12/2019 GLUCOSE 119 (H) 05/12/2019 CALCIUM 8.9 05/12/2019 ANIONGAP 15 05/12/2019 LFT's: No results found for: ALB, PROT Ionized Calcium: No components found for: IONCA ABG: No results found for: PHART, [id number], PO2ART, GSG4XUT, BEART, [id number] HgBA1c: No results found for: HGBA1C Lipid Panel: No results found for: CHOL, TRIG, HDL TSH: No results found for: TSH IMAGING STUDIES & OTHER STUDIES Assessment and plan @ADMDXS@ Principal Problem: Debility Active Problems: Type 2 diabetes mellitus Anemia of chronic renal failure Chronic kidney disease, Stage V Essential hypertension Hyperkalemia Hypervolemia Malignant neoplasm of prostate Moderate malnutrition Other hyperlipidemia Retention of urine Diastolic dysfunction Seroma Abnormality of gait Toxic metabolic encephalopathy Acute renal failure, CKD LE edema ESRD,with volume overload, on dialysis now Renal consulted Still on lasix 80 bid watch BP Hypertension, Continue meds Hyperkalemia, related to the chronic kidney disease, on dialysis Metabolic acidosis, from the renal failure, better with dialysis Anemia, most recent hemoglobin 8.7, , monitor H/H DM aacu, SSI h/oProstate cancer Voiding ok DVT prophylaxis: on Lovenox 9. Full code Echo 05/01/19: Mild concentric left ventricular hypertrophy. Impaired diastolic relaxation Grade I. Ejection fraction is visually estimated at 60 %. There is mild enlargement of left atrium. Mild aortic valve regurgitation. Pain management Today's pain score 0 FEN. Nutrition consult for evaluation of nutritional [...] executive skills, memory, orientation, and cognitive skills. --Paralegal Instructor: discharge plans in the context of social, family, and discharge needs to help coordinate a safe discharge. --Neuropsychology (if applicable): tracking cognitive progress, evaluate memory, behavior, and cognitive function. guide patient and team toward better outcomes through understanding of behavioral and cognitive impairments and the obstacles that manifest by them --Rehabilitation Physician: to determine rehabilitation needs medical rehabilitation needs, will beseen by a farm operator at a minimum of 3 times a [...] coordinated through an interdisciplinary team with frequent human resources team member interactions and weekly conferences. An individualized plan of care with a minimum of two rehab therapies will be developed for the patient. Please refer to the [facility] Admission Note determining the medical necessity as outlined in the [facility] documents to support admission for Acute Inpatient Rehabilitation Electronically signed by: MISTY HATHAWAY MD, 05/12/2019 1:40 PM CC: No primary care provider on file. documented in this encounter Consult Notes * Katya Ennis, PhD - 05/13/2019 3:25 PM CSTAssociated Order(s): IP CONSULT TO NEUROPSYCHOLOGY PSYCHOLOGY INITIAL EVALUATION SUBJECTIVE: Reason for Referral: Mr. Mitchell is a left handed, male referred for evaluation in order to evaluate cognition and address adjustment to impairment or loss of function. Years of Education: 8 Occupation: retired, worked for [employer] : No Rehab Diagnosis / Principal Problem: Toxic metabolic encephalopathy / acute kidney failure Active Problems: Debility Type 2 diabetes mellitus Anemia of chronic renal failure Chronic kidney disease, Stage V Essential hypertension Hyperkalemia Hypervolemia Malignant neoplasm of prostate Moderate malnutrition Other hyperlipidemia Retention of urine Diastolic dysfunction Seroma Abnormality of gait End stage renal failure on dialysis Date of Onset: 04/30/19 Brain Imaging: Not available Additional Injury Pre-admission Assessments: NA Medical History (per record): Past Medical History: Diagnosis Date ??? Diabetes mellitus ??? Diabetes mellitus 05/12/2019 ??? End stage renal failure on dialysis 05/12/2019 New to dialysis ??? Hypertension ??? Other abnormal clinical findings ??? Seroma 05/12/2019 Proximal Left thigh 60 x 23 x39 mm by US No past surgical history on file. History of Psych Disorders and Substance Abuse: Possible depression History of Psychiatric Medications: No Current Medications: Current Facility-Administered Medications: ??? acetaminophen (TYLENOL) tablet 325 mg, 325 mg, PO/Per Tube, Q6H PRN, Misty Hathaway MD, 325 mgat 05/11/19 3421 ??? allopurinol (ZYLOPRIM) tablet 100 mg, 100 mg, Oral, Once a day, Misty Hathaway MD, 100 mg at 05/13/19 0919 ??? atenolol (TENORMIN) tablet 12.5 mg, 12.5 mg, Oral, Once a day, Misty Hathaway MD, 12.5 mg at 05/13/19919 ??? atorvastatin (LIPITOR) tablet 20 mg, 20 mg, Oral, Once a day, Misty Hathaway MD, 20 mg at 05/13/19919 ??? bisacodyl (DULCOLAX) suppository 10 mg, 10 mg, Rectal, Once, Manoj Morrison NP ??? docusate sodium (COLACE) capsule 100 mg, 100 mg, Oral, Once a day, Misty Hathaway MD, 100 mg at 05/13/19919 ??? donepezil (ARICEPT) tablet 10 mg, 10 mg, Oral, Nightly, Misty Hathaway MD, 10 mg at 05/12/192035 ??? folic acid (FOLVITE) tablet 1 mg, 1 mg, Oral, Once a day, Misty Hathaway MD, 1 mg at 05/13/19920 ??? furosemide (LASIX) tablet 80 mg, 80 mg, Oral, BID DIURETIC, Misty Hathaway MD, 80 mg at 05/13/19918 ??? lactulose (CHRONULAC) 10 GM/15ML solution 20 g, 20 g, Oral, 2 times per day, Florencia Moulton MD, 20 g at 05/13/19 1352 ??? lisinopril (PRINIVIL,ZESTRIL) tablet 5 mg, 5 mg, Oral, Once a day, Misty Hathaway MD, 5 mg at 05/12/19941 ??? oxybutynin (DITROPAN) tablet 5 mg, 5 mg, Oral, Once a day, Misty Hathaway MD, 5 mg at ??? oxyCODONE-acetaminophen (PERCOCET) 5-325 MG 1 tablet, 1 tablet, Oral, Q6H PRN, Misty Hathaway MD, 1 tablet at 05/12/19941 ??? polyethylene glycol (MIRALAX) packet 17 g, 17 g, Oral, Once a day, Misty Hathaway MD, 17 g at 05/13/19 09 ??? tamsulosin (FLOMAX) 24 hr capsule 0.4 mg, 0.4 mg, Oral, Nightly, Misty Hathaway MD, 0.4 mg at 05/12/192035 Family Psych History: no history reported Living Arrangement: alone Prior Level of Functioning: Independent with ADL's and Ambulated with an assisstive device, does not drive Smoking: No Behavior and Appearance: lethargic and confused Speech: dysarthric and goal directed Articulation: mildly impaired Fluency: no impairment noted Repetition: moderately impaired Comprehension: no impairment noted Pain: does not report any pain Neurovegetative Symptoms: sleep difficulty off and on Affective Range: flat Affective Quality: calm and perplexed Patient reports mood as sad; he is unsure why Patient reports cognitive change? (describe if yes): No per pt. Nephew reported pt is disoriented to date at baseline. Recent Stressors or Losses: none reported Patients stated goals: to get out. Patients primary supports/community integration: nephew (present), niece, other family OBJECTIVE: Cognitive Assessment: Mini Mental Status Exam score 13 / 30 T (age and edu) = <1 (severe) Domains Assessed: Orientation: impaired to time and circumstance Attention: moderately impaired Comprehension: no impairment noted Repetition: moderately impaired Naming: no impairment noted Memory: moderately impaired Registration: 2/3 Free Recall: 2/3 Social Judgment: mildly impaired Visuospatial Perception: moderately impaired Praxis: mildly impaired Executive Functioning: moderately impaired Decreased insight Reduced working memory Reduced speed of processing Mood Rating: Geriatric Depression Scale, Score 0/5, WNL ASSESSMENT: Mr. Mitchell was admitted for metabolic encephalopathy. He has acute kidney failure and is on dialysis.He endorsed sleep difficulty, hallucinations, and confusion. He demonstrated mild to moderate cognitive impairments. He reported feeling sad today but denied depression on a self-report measure. He was disoriented to date (February 2016). His nephew was present and supportive. The pt is generally hopeful for the benefit of rehabilitation. Ability and willingness to work towards goals, receptivity to psychological support and plan of care :Fair PLAN: individual intervention Goals: Patient to show initial understanding of and adjustment to illness/injury Active participation in all therapies Recommendations for Treatment Team: Recommendations for Attention and Distractibility: ?? Minimize external distractions ?? Break tasks down into steps Recommendations for Memory: ?? Emphasize over-learned tasks such as basic self care ?? Emphasize procedural memory-patient will require much practice and learning by doing Recommendations for Insight: ?? Provide gentle but accurate feedback ?? Have patient predict performance prior to task and compare with end result ?? Encourage patient to demonstrate to family members safe performance of tasks before attempting them independently Recommendations for Participation in Rehabilitation Therapies: ?? Redirect patient to specific individual goals and explain how therapy tasks relate to those goals Thank you for the opportunity to participate in your patient's care. If there are any questions about the assessment or recommendations, please do not hesitate to call. KATYA ENNIS, PhD 05/13/2019 3:26 PM * Tara Alberts, RD - 05/13/2019 2:33 PM CSTAssociated Order(s): IP CONSULT TO NUTRITION SERVICES Nutrition Initial Assessment Note Date: 05/13/2019 Time: 2:33 PM Patient Name: Jules Mitchell Date of : 1945 Sex: Male Room/Bed: 204/2041 Principal Problem: Toxic metabolic encephalopathy Admit Date/Time: 05/11/2019 7:19 PM Relevant Medications: Scheduled/Continuous Medications Scheduled Medication Dose/Rate, Route, Frequency Last Action allopurinol (ZYLOPRIM) tablet 100 mg 100 mg, PO, Once a day Given: 05/13 918 atenolol (TENORMIN) tablet 12.5 mg 12.5 mg, PO, Once a day Given: 05/13 919 atorvastatin (LIPITOR) tablet 20 mg 20 mg, PO, Once a day Given: 05/13 919 bisacodyl (DULCOLAX) suppository 10 mg 10 mg, RE, Once Ordered docusate sodium (COLACE) capsule 100 mg 100 mg, PO, Once a day Given: 05/13 919 donepezil (ARICEPT) tablet 10 mg 10 mg, PO, Nightly Given: 05/12 2035 folic acid (FOLVITE) tablet 1 mg 1 mg, PO, Once a day Given: 05/13 920 furosemide (LASIX) tablet 80 mg 80 mg, PO, BID DIURETIC Given: 05/13 918 lactulose (CHRONULAC) 10 GM/15ML solution 20 g 20 g, PO, BID Given: 05/13 1351 lisinopril (PRINIVIL,ZESTRIL) tablet 5 mg 5 mg, PO, Once a day Given: 05/12 941 oxybutynin (DITROPAN) tablet 5 mg 5 mg, PO, Once a day Given: 05/13 920 polyethylene glycol (MIRALAX) packet 17 g 17 g, PO, Once a day Given: 05/13 921 tamsulosin (FLOMAX) 24 hr capsule 0.4 mg 0.4 mg, PO, Nightly Given: 05/12 2035 Relevant Labs: Most recent labs reviewed. CBC: Recent Labs Lab Units 05/13/19 0500 WBC X(10)9/L BLOOD x10E9/L 5.9 HGB GM/DL BLOOD gm/dL 8.8* HCT % BLOOD % 29.1* MCV FL BLOOD fl 97.7 RDW-CV % BLOOD % 13.[address] X(10)9/L BLOOD x10E9/L 267 Weight: Admit Weight: 136 lb 1.6 oz (61.7 kg) Latest Weight: 136 lb 1 oz (61.7 kg) (05/12/19 0504) Weight Comment: unknown weight history Diet Order: Dietary Orders (From admission, onward) Start Ordered 05/13/19 170 Nutritional supplement Nepro 2 times daily at breakfast and dinner End/Expires: Until Specified Question: Select Supplement: Answer: Nepro 05/13/19 1352 05/13/19 1700 Diet message 3 times daily with meals Comments: Cut meats End/Expires: Until Specified 05/13/19 1352 05/13/19 135 Adult Diet Therapeutic Diet; Renal with dialysis, Carb Controlled; 5 Carb/75gm/meal (2000 calories); Regular Texture (7 Regular); All Liquids (0 Thin) Diet effective now End/Expires: Until Specified Question Answer Comment Diet Type: Therapeutic Diet Therapeutic Diet: Renal with dialysis Therapeutic Diet: Carb Controlled Carbohydrate Controlled: 5 Carb/75gm/meal (2000 calories) Diet Texture: Regular Texture (7 Regular) Liquid Consistency All Liquids (0 Thin) Place order in third republican system. Done 05/13/19 1352 Prior to Admission Food/Nutrient Intake: Current Food/Nutrient Intake Anthropometrics: Height: 5' 10 (177.8 cm) Weight: 136 lb 1 oz (61.7 kg) Historical Weight Trend (Time Frame): usual weight unknown Weight Method: Bed scale BMI Amputation Adjustment: No BSA (Calculated - sq m): 1.74 sq meters BMI (Calculated): 19.5 Weight in (lb) to have BMI = 25: 173.9 Nutrition Focused Physical Findings: Physical Assessment: Yes Scalp/Hair: WDL Face: WDL [place] Region (Temporalis muscle): WDL Orbital Region: WDL Eyes: WDL Nose: WDL Lips: WDL Teeth: Missing Teeth Skin: WDL Wounds: No Edema: No edema Hand Region: WDL Nails: WDL Posterior Calf Region: Thin Clinical Characteristics of Malnutrition: Findings: Unable to determine (add comment)(unknown weight history) Energy Needs: Total Energy Estimated Needs: 30 calroies/kg (62) = 1860 + 500 for weight gain Total Protein Estimated Needs: 1.5 gm protien /kg = 93 Total Fluid Estimated Needs: 500 mL + output Nutrition Support: No Plan of Care - Nutrition Care Plans (Notes for yesterday and today) 1 Author: Tara Alberts RD Service: -- Author Type: Registered Dietitian Filed: 05/13/2019 2:32 PM Date of Service: 05/13/2019 2:32 PM Status: Signed Unix Architect: Tara Alberts RD (Registered Dietitian) Problem: Inadequate or Predicted Suboptimal Energy or Oral Intake Description Related to:poor appetite, diet order As Evidenced By: pt report and po intake 50%; and diet order is written for 1800 calories Goal: Clinical Nutrition Goal Outcome: Progressing Flowsheets (Taken 05/13/2019 1431) Primary Goal: Adequate Meals and Snack/Oral Nutrition Supplement Intake Primary Goal Progress: New Primary Indicator/Monitor: po intake 50-100% Secondary Goal: Weight Gain Secondary Goal Progress: New Secondary Indicator/Monitor: 1/2-2# per week Intervention: Medical Nutrition Therapy Interventions Flowsheets (Taken 05/13/2019 1431) Meals and Snacks: Modify texture/distribution/nutrients (increase calories, and cut meats) Supplements: Commercial beverage/Oral Nutrition Supplement Coordination of Nutrition Care: Continue to Monitor Additional Comments/Recommendations: Reviewed meal ordering process and gave alternative menu selections; Reviewed snacks available uponrequest; Rd name and number given Will increase calories of diabetic diet; cut up meats due to weakness in arms; will add nepro bid to provide 425 calories and 19 gms protien each; reviewed to drink after meals to avoid early satiety Monitor weight TARA ALBERTS RD 05/13/19 2:33 PM * Carmen Donato MD - 05/12/2019 7:01 PM CST Patient name: Jules Mitchell : 1945 MR#: [id number] Today's Date: 05/12/2019, Time: 7:01 PM Admission Date: 05/11/2019, Hospital Day: @HD@ Attending MD: Florencia Moulton MD Reason for admission: inpatient rehab Reason for consult: ESRD on dialysis Date of consult: 05/12/2019 MD requesting consult: Florencia Moulton MD PCP: No primary care provider on file. HPI: The patient is a 73 y.o. male well known to me from the past, who has ESRD on HD on TTS right upper chest tunneled CVC, his ESRD is due to history of hypertension, DM and obesity, he also has history of anemia, volume overload from ESRD. He is transferred from [facility] to here for comprehensive rehab. Upon interview, patient denies fever, shaking chills, lightheadedness, dizziness, vision changes, headaches, sore throat, coughing, short of breath, chest pain, anorexia, nauseousness, vomiting, abdominal pain. Denies any urological symptoms, including dysuria, burning sensation, urgency, prequency, flow problem. Denies excessive cold intolerance, pruritus. Denies fatigue, weakness, focal neurological deficits. Denies skin rash. No recent history of exposure to contrast dye. No recent history of exposure of NSAIDs. Past Medical History: Diagnosis Date ??? Diabetes [...] resource strain: Not on file ??? Food insecurity: Worry: Not on file Inability: Not on file ??? Transportation needs: Medical: Not on file Non-medical: Not on file Tobacco Use ??? Smoking status: Former Smoker Substance and Sexual Activity ??? Alcohol use: Defer ??? Drug use: Not on file ??? Sexual activity: Defer Lifestyle ??? Physical activity: Days per week: Not on file Minutes per session: Not on file ??? Stress: Not on file Relationships ??? Social connections: Talks on phone: Not on file Gets together: Not on file Attends sikh service: Not on file Active member of club or organization: Not on file Attends meetings of clubs or organizations: Not on file Relationship status: Not on file ??? Intimate partner violence: Fear of current or ex partner: Not on file Emotionally abused: Not on file Physically abused: Not on file Forced sexual activity: Not on file Other Topics Concern ??? Not on file Social History Narrative ??? Not on file ROS: Review of Systems - Please see the HPI part of this note. Physical Examination: Vitals: 05/11/19 1933 05/12/19 0504 05/12/19 0942 05/12/19 0943 BP: 117/65 117/65 124/71 124/71 Pulse: 60 60 67 Resp: 18 18 Temp: 98.3 ??F (36.8 ??C) 98.3 ??F (36.8 ??C) TempSrc: Oral Oral SpO2: 100% 100% Weight: 136 lb 1.6 oz (61.7 kg) 136 lb 1 oz (61.7 kg) Height: 5' 10 (1.778 m) Intake/Output Summary (Last 24 hours) at 05/12/2019 1901 Last data filed at 05/12/2019 1856 Gross per 24 hour Intake 240 ml Output -- Net 240 ml Admission weight: Most recent weight: Exam: General: In no acute distress. Skin: No rash noted. HEENT: Head atraumatic, normocephalic, PERRLA, EOMI, anicteric sclera, MMM Neck: Supple, No JVD Lungs: CTA, bilaterally, no wheezing, rhonchi, rales appreciated. Heart: RRR, S1 and S2 without pericardiac rubs Abd: Soft, Nontender, not distended, positive bowel sounds Extremities: No clubbing, cyanosis. + trace edema Neuro: Awake, alert oriented x 3. No asterias on overstretched upper extremeties Labs: Recent Labs Lab Units 05/12/19 0530 SODIUM MMOL/L BLOOD mmol/L 139 POTASSIUM MMOL/L BLOOD mmol/L 3.9 CHLORIDE mmol/L 95* CO2 mmol/L 29 BUN MG/DL BLOOD mg/dL 29* CREATININE mg/dL 4.03* GLUCOSE MG/DL BLOOD mg/dL 119* CALCIUM MG/DL BLOOD mg/dL 8.9 ANION GAP BLOOD mmol/L 15 Recent Labs Lab Units 05/12/19 0530 SODIUM MMOL/L BLOOD mmol/L 139 POTASSIUM MMOL/L BLOOD mmol/L 3.9 CHLORIDE mmol/L 95* CO2 mmol/L 29 BUN MG/DL BLOOD mg/dL 29* CREATININE mg/dL 4.03* GLUCOSE MG/DL BLOOD mg/dL 119* CALCIUM MG/DL BLOOD mg/dL 8.9 Recent Labs Lab Units 05/12/19 0530 SODIUM MMOL/L BLOOD mmol/L 139 POTASSIUM MMOL/L BLOOD mmol/L 3.9 CHLORIDE mmol/L 95* CO2 mmol/L 29 BUN MG/DL BLOOD mg/dL 29* CREATININE mg/dL 4.03* GLUCOSE MG/DL BLOOD mg/dL 119* CALCIUM MG/DL BLOOD mg/dL 8.9 Recent Labs Lab Units 05/12/19 0530 WBC X(10)9/L BLOOD x10E9/L 6.6 HGB GM/DL BLOOD gm/dL 9.4* HCT % BLOOD % 31.2* PLT CT X(10)9/L BLOOD x10E9/L 273 Imaging: Renal US CXR Pending. Assessment: ESRD HTN Acute volume overload related to ESRD Anemia related to ESRD, iron deficiency DM Left thigh seroma Hyperlipidemia Hyperkalemia from ESRD Generalized weakness from uremia Metabolic acidosis Constipation Plan: Continue dialysis support, since pt is still has significant residual renal function, we will avoidnephrotoxins, adjust medications according to renal function, follow intake/output, volume status, respiratory status, closely, monitor renal function, electrolytes, and acid/base closely. Minimize contrast dye exposure if possible. Laxative ordered for constipation. Thank you for the privilege of assisting you in this patient's care ! Carmen Donato * Florencia Moulton MD - 05/12/2019 10:14 AM CST Physical Medicine and Rehabilitation Consult Patient Name: Jules Mitchell Admission Date and Time: 05/11/2019 7:19 PM Room Number: 204/204-1 Acute admission date:04/30/2009 Reason for acute admission: leg pain and impaired mobility Transfer from: [facility] PCP: Dr. Kwame Berg Specialists: Dr. Donato Subjective Chief Complaint: I have leg pain Admission Diagnoses: ESRD Dialysis dependent Acute volume overload due to CKD Hypertension Anemia, related to CKD and iron deficiency Uremia Generalized weakness Hyperkalemia Metabolic acidosis Urinary retention, probably related to medication Impaired diastolic relaxation grade I, per ECHO 05/01 Severe degenerative changes radiocarpal, intercarpal and metacarpophalangeal joints 05/05 Left groin and proximal thigh fluid collection adjacent the femur measuring 60 x 23 x 39 mm. ??04/29 Constipation Hyperchlesterolemia Secondary Discharge Diagnosis: Chronic kidney disease, stage V (CMS/HCC) Anemia associated with chronic renal failure Hyperkalemia Metabolic acidosis Hypervolemia Moderate malnutrition (CMS/HCC) Patient Active Problem List Diagnosis ??? Debility ??? Type 2 diabetes mellitus ??? Anemia of chronic renal failure ??? [...] ??? Latent autoimmune diabetes mellitus in adult - Frailty and Debility - Difficulty Walking - Balance Impairment - Physical Deconditioning - Muscle Weakness - Impaired Endurance - Impaired Activity Tolerance History of present illness: Patient is a 73 y.o. male admitted to [facility] on 05/11/2019 7:19 PM. Patient's acute care chart has been used to supplement history. HPI Patient seen and examined with therapies, discussed medical and functional history with amandeep Garcia. This is a a 73 year old male, who has a past medical history of Chronic kidney disease, stage V, anemia related to his renal disease, Hypercholesterolemia, and DM admitted he reports due to left leg pain He has had a previous injury reported in notes several years ago to his left leg, but details unknown. Niece reports he was ambulating without an assistive device at [facility]. Per notes, some left leg pain noted as early as June of 2017. Incidental US 04/29/2019 demonstrated a left groin and proximal thigh fluid collection adjacent the femur measuring 60 x 23 x 39 mm. ??There is no flow. Patient with advanced stage V renal disease on admission bilateral LE edema, and overload, he is admitted for further management. Lab on admission: Potassium: 6.2, HCO3 18, BUN 74, creatinine 3.67, Hgb 9.4, iron 37, TIBC 152 Metabolic acidosis noted. Volume overload present-Lasix IV initiated, he has good UO, however, his creatinine and BUN has been trending up Dialysis started 05/04/2019. Hyperkalemia, metabolic acidosis noted HTN present-improved with dialysis Anemia noted DM Impaired nutrition-started on supplements, unclear appetite Urinary retention noted, flexeril discontinued No known PVR--prior hx of prostate cancer Noted to have impaired mobility requiring a cane and assistance for balance Decreased endurance noted as well. Procedures Performed: Right tunneled dialysis catheter was placed on 05/03/2019. Hemodialysis was initiated on 05/04/2019. Echocardiogram on 05/05/2019 Given deficits related to ESRD with metabolic acidosis with fluid overload and encephalopathy, transferred to [facility] for comprehensive rehab with medical oversight. HD per Dr. Yehuda WHITE Subjective Patient has been admitted in acute inpatient rehabilitation to begin working on functional transfertraining, LE strengthening/ROM, endurance training, improvements in activity tolerance and bed mobility. Patient will also undergo equipment evaluation/education. Patient/family training to be done as required throughout the course of the inpatient stay. Compensatory technique education and gait training is also to be undertaken. Current impairments warranting an inpatient rehabilitation admission include: Current impairments warranting an inpatient rehab stay include: Impairments in ADLs and self care. Difficulty with gait and mobility. Impaired endurance and activity tolerance. Muscle weakness. Balance impairment. Pain management. Medication management. Safety awareness and risks including possible needs for high risk medications including opioids and/or benzodiazepines among others. Monitoring of medical co-morbidities. Identification of gait aids and other mobility devices. Identification of DME. Nutritional management and monitoring of sound caloric and fluid intake. Monitoring for risk of infection. Monitoring of electrolyte imbalances, renal function and hematologic indices. Prevention of DVT and its sequelae. Maintenance of skin integrity and wound healing as indicated. Facilitation of safe discharge whether it be to home or alternate facility. Education of family as needed. Monitoring of caregiver burnout as relevant. Individual Modifiable Risk Factors Hypertension: Hyperlipidemia: Diabetes: Atrial Fibrillation: Tobacco: Past Medical History: Reviewed PMHx Past Medical History: Diagnosis Date ??? Diabetes mellitus ??? Diabetes mellitus 05/12/2019 ??? End stage renal failure on dialysis 05/12/2019 New to dialysis ??? Hypertension ??? Other abnormal clinical findings ??? Seroma 05/12/2019 Proximal Left thigh 60 x 23 x39 mm by US Past Surgical History: Reviewed PSHx Family History: No family history on file. Social history: Support System and Family Circumstances (i.e., potential caregivers): lives with brother Social History Substance and Sexual Activity Alcohol Use Defer Social History Tobacco Use Smoking Status Former Smoker Social History Substance and Sexual Activity Drug Use Not on file Home Environment / Accessibility: Lives in home with 8 steps to enter Employment: Previous employment: Current: not working Functional Status: Premorbid Functional Status: lived with brother needed assistance per patient- used cane Current Functional status: Patient has impairments in mobility, balance, ROM and self-care. Patient???s current functional status includes: Eating: supervision Grooming / Hygiene: supervision Upper Extremity Dressing: min assist Lower Extremity Dressing: moderate assistance Bed Mobility: min assist Supine-Sit: moderate assistance Sit-Stand: min assist Transfer: min assist Toilet Transfer: min assist Expression: independent Memory: min assist Ambulation: min assist Review of Systems - Comprehensive review of systems negative except as mentioned in history of present illness. Left leg and knee pain Medications/Allergies: Scheduled/Continuous Medications Scheduled Medication Dose/Rate, Route, Frequency Last Action allopurinol (ZYLOPRIM) tablet 100 mg 100 mg, PO, Once a day Given: 05/12 941 amLODIPine (NORVASC) tablet 5 mg 5 mg, PO, Once a day Given: 05/12 941 atenolol (TENORMIN) tablet 12.5 mg 12.5 mg, PO, Once a day Given: 05/12 942 atorvastatin (LIPITOR) tablet 20 mg 20 mg, PO, Once a day Given: 05/12 940 docusate sodium (COLACE) capsule 100 mg 100 mg, PO, Once a day Ordered donepezil (ARICEPT) tablet 10 mg 10 mg, PO, Nightly Ordered folic acid (FOLVITE) tablet 1 mg 1 mg, PO, Once a day Ordered furosemide (LASIX) tablet 80 mg 80 mg, PO, BID DIURETIC Given: 05/12 942 lisinopril (PRINIVIL,ZESTRIL) tablet 5 mg 5 mg, PO, Once a day Given: 05/12 941 oxybutynin (DITROPAN) tablet 5 mg 5 mg, PO, Once a day Given: 05/12 941 polyethylene glycol (MIRALAX) packet 17 g 17 g, PO, Once a day Given: 05/12 818 tamsulosin (FLOMAX) 24 hr capsule 0.4 mg 0.4 mg, PO, Nightly Ordered PRN Medications: ??? acetaminophen ??? oxyCODONE-acetaminophen No Known Allergies Objective Vital Signs: Temp: [98.3 ??F (36.8 ??C)] 98.3 ??F (36.8 ??C) Pulse: [60-67] 67 Resp: [18] 18 BP: (117-124)/(65-71) 124/71 Patient Vitals for the past 24 hrs: BP Temp Temp src Pulse Resp SpO2 Height Weight 05/12/19942 124/71 -- -- 67 -- -- -- -- 05/12/19941 124/71 -- -- -- -- -- -- -- 05/12/19 0504 117/65 98.3 ??F (36.8 ??C) Oral 60 18 100 % 5' 10 (1.778 m) 136 lb 1 oz (61.7 kg) 05/11/19 1933 117/65 98.3 ??F (36.8 ??C) Oral 60 18 100 % -- 136 lb 1.6 oz (61.7 kg) Ht./ Wt./ BMI: Height: 5' 10 (177.8 cm) Weight: 136 lb 1.6 oz (61.7 kg) Body mass index is 19.52 kg/m??. Objective PHYSICAL EXAM: GENERAL: Alert male, NAD-decreased affect slowed speech HEENT: Anicteric sclera MMM no facial asymmetry LUNGS: Clear to auscultation no wheezes no rales no dyspnea at rest Chest with tunneled catheter CV: RR without murmurs ABDOMEN: Soft NT active bowel sounds EXTREMITIES: Limited LE edema no pedal edema Urogenital: deferred SKIN: No known breakdown MUSCULOSKELETAL: UE with good ROM no impingement fine motor control equivalent Left leg unable to flex hip due to pain Knee extension left knee with crepitus ADF voluntary Righ hip knee ankle DF present-antigravity NEURO: Slowed processing Vision: need to assess Sensation: deferred Proprioception: deferred Cerebellar: deferred Tone: no increased tone Hoffmans clonus negative Cognition/communication: concrete speech Speech: no hypophonia PSYCH: decreased affect Labs: Reviewed acute labs Significant findings Admission on 05/11/2019 Component Date Value Ref Range Status ??? Glucose mg/dL Blood 05/12/2019 119* 70 - 105 mg/dL Final ??? Sodium mmol/L Blood 05/12/2019 139 136 - 145 mmol/L Final ??? Potassium mmol/L Blood 05/12/2019 3.9 3.5 - 4.7 mmol/L Final ??? Chloride 05/12/2019 95* 98 - 107 mmol/L Final ??? CO2 05/12/2019 29 23 - 31 mmol/L Final ??? Calcium mg/dL Blood 05/12/2019 8.9 8.4 - 10.4 mg/dL Final ??? Anion Gap Blood 05/12/2019 15 8 - 16 mmol/L Final ??? Bun mg/dL Blood 05/12/2019 29* 8.4 - 25.7 mg/dL Final ??? Creatinine 05/12/2019 4.03* 0.72 - 1.25 mg/dL Final ??? Egfr By MDRD ml/Min/1.73 M2 Blood 05/12/2019 15 mL/min/1.73m2 Final ??? Egfr By MDRD ml/Min/1.73 M2 Blood * 05/12/2019 18 mL/min/1.73m2 Final ??? WBC X(10)9/L Blood 05/12/2019 6.6 4.4 - 10.7 x10E9/L Final ??? Rbc X(10)12/L Blood 05/12/2019 3.19* 3.80 - 5.40 x10E12/L Final ??? HGB gm/dL Blood 05/12/2019 9.4* 12.0 - 17.6 gm/dL Final ??? HCT % Blood 05/12/2019 31.2* 35.2 - 51.7 % Final ??? MCV fL Blood 05/12/2019 97.8 80.7 - 98.3 fl Final ??? MCH pg Blood 05/12/2019 29.5 26.7 - 34.0 pg Final ??? MCHC gm/dL Blood 05/12/2019 30.1* 30.8 - 35.9 gm/dL Final ??? Plt Ct X(10)9/L Blood 05/12/2019 273 153 - 416 x10E9/L Final ??? RDW-Cv % Blood 05/12/2019 13.6 12.1 - 14.9 % Final ??? MPV fL Blood 05/12/2019 9.9 9.4 - 12.9 fl Final Imaging: Reviewed acute imaging See HPI Significant findings RESSION: No evidence of acute deep vein thrombosis in the left lower extremity. There is a left groin and proximal thigh fluid collection adjacent the femur measuring 60 x 23 x 39 mm. There is no flow. Could this be an iatrogenic hematoma and/or seroma. REHAB MEDICAL ASSESSMENT AND PLAN: Etiologic Diagnosis: Metabolic encephalopathy in setting of ESRD needing dialysis Impaired processing noted, further eval underway ?aricept started when? Debility with poor endurance also noted Left leg pain present, unclear if related to fluid collection vs fluid collection vs knee crepitus Active Co-Morbid Conditions Present on Admission: Problem List: 2019-04: Retention of urine 2019-04: Diastolic dysfunction 2019-04: Seroma 2019-04: Abnormality of gait 2019-04: Toxic metabolic encephalopathy 2019-04: End stage renal failure on dialysis 2019-04: Debility 2019-04: Moderate malnutrition 2019-04: Type 2 diabetes mellitus 2019-04: Anemia of chronic renal failure 2019-04: Chronic kidney disease, Stage V 2019-04: Essential hypertension 2019-04: Hyperkalemia 2019-04: Hypervolemia 2019-04: Malignant neoplasm of prostate 2019-04: Other hyperlipidemia 2019-04: Metabolic acidosis 2019-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 Internal medicine consult for medical comorbidity management. ??? Specialists consult for comorbidity management given current diagnoses and medical complexity. Currently, patient requires close medical supervision by a rehabilitation physician as well as 24 hour specialized rehabilitative nursing at the inpatient acute rehabilitation intensity level of careto address current medical, functional and mobility deficits as a direct result of complex medical c onditions with encephalopathy Given the information presented and findings noted, the patient exhibits a decline in functional status and would benefit from acute inpatient rehabilitation. These impairments impact patient???s ability to safely perform daily activities and mobility tasks. The patient requires an intensive, comprehensive interdisciplinary program to improve functional abilities and level of independence with overall goal of returning home. Moreover, the patient???s need for close medical oversight and specialized rehabilitation nursing at an inpatient rehabilitation level of care is required to not only manage co-morbidities stated below but also to mitigate the risk of infection, falls and readmission to an acute care hospital and other life threatening conditions. Patient requires close medical management which cannot be provided at a lower level of care, such as a chcf facility, where there is an increased nurse to patient ratio and a lack of specialized interdisciplinary team comprised of rehabilitation physicians, nurses, and therapists. REHAB PLAN: Patient is admitted to inpatient rehab for post-acute care to address functional deficits and for management of medical comorbidity NOTED ABOVE: Physiatry for medical coordination and oversight during the rehabilitation process. We will provide comprehensive inpatient rehabilitation, which may include PT, OT, RT, PULLING UNIT FLOORHAND, and supportive services to improve functional outcome of impaired mobility, ADLs, transfers, and self-care. Patient requires 3 hours of therapy daily for gait, balance, ADL deficits that cannot be adequatelytreated at a lesser level of care. Patient requires 24 hour rehab nursing care due to bowel and/or bladder management, and to maintain/improve skin integrity. Patient requires 24 hour rehab nursing care due to decreased personal care skills, medication issues, and to reinforce team goals outside oftherapy sessions. Patient requires physiatric care daily for functional assessment management, post-op care, and to prevent sequelae of immobility. Medical plan: ??? Plan is to be admitted to acute rehabilitation to address deficits related to encephalopathy and ESRD. ??? Physiatry for medical coordination and oversight during the rehabilitation process. ??? Patient has been referred by noted. ??? Patient is to follow up with their Primary Care Provider at discharge.[email or web address] ??? PT and OT to address gross motor skills, transfers and self-care. ??? Neuropsychology for adjustment and coping ??? PULLING UNIT FLOORHAND for cognition, swallowing and communication ??? Rehabilitation nursing to provide 24-hour nursing care and carry over of rehabilitation techniques. ?? Ongoing patient education to facilitate discharge home. ?? Case management to arrange team conferences and safe home disposition. ?? Patient and caregiver education for safe home disposition. ?? Equipment evaluation to include gait aids, WC, transfer equipment, and home oxygen/respiratory devices as prescribed The patient will be a Full Resuscitation The patient has the following allergies: No Known Allergies Specialized rehab protocol described below. Patient will undergo general and neuro rehab program with the following: Progressive mobility training Com/cog Gait training Barriers to Rehabilitation and Discharge The patient is at high risk for falls and subsequent serious injury. The patient is also at risk for DVT, skin breakdown, and infection due to decreased mobility. Other risks given medical comorbidities noted above. Given these risks, the following medical TREATMENT PLANS are ordered: NEURO: encephalopathy ORTHOPEDIC: Assessing left leg knee impairments and dysfunction SKIN: Nursing to address skin care throughout stay. Review edema, pressure points, skin breakdown or tissue changes Skin integrity and Pressure ulcer prevention: frequent repositioning, encourage q2 hour turns when in bed and regular skin checks, apply protective barrier cream as needed, bowel/bladder schedule, maintain clean/dry skin, float heels when in bed. Specialty mattress such as a low airloss mattress if needed. Wound issues monitoring DVT ppx with per renal GI: per endocrinology PAIN: reviewed mechanical and neuropathic pain features Will optimize pain management with topicals, ice/heat, modalities and anxiety management RESPIRATORY to include: IS prevent atelectasis CARDIAC to include: Given history of HTN diastolic dysfunction monitor BP while on HD If hypotensive, provide if necessary abdominal binder and compression stockings ENDOCRINE: Pt has Diabetes Mellitus/Hyperglycemia - accucheck ACHS. Continue SSI and scheduled insulin. Continue hypoglycemia protocol. Dr mtz IF Adrenal dysfunction suspected, am cortisol ordered IF Thyroid function suspected TSH and reflex T4 ordered RENAL: chronic and acute conditions reviewed HD monitor-dr donato HEME: chronic and acute conditions reviewed anemia noted monitor Patient to be admitted to address functional deficits and for management of medical comorbidity related to encephalopathy with medical conditions, and for rehabilitation and medical issues related tothe same. We will provide comprehensive inpatient rehabilitation, which may include PT, OT, RT, PULLING UNIT FLOORHAND, and supportive services to improve functional outcome of impaired mobility, ADLs, transfers, and self-care. DIET NUTRITION AND EXERCISE: Counseling given SLEEP: I highly recommend establishing a good sleep/wake cycle with regular routine, bright lights during the day, darkness at night, upright positioning/HOB elevated as tolerated during day. Attempt to minimize nocturnal interruptions as much as possible. Falls prevention strategies and education ongoing. BOWEL Bowel management. Titrate bowel medications for constipation/diarrhea. We will encourage p.o.fluids and mobility. BLADDER retention vs incontinence toilet regularly PVRs and bladder scans needed Bowel/bladder maintenance with regular bowel regimen due to high risk of constipation given immobility: Docusate and Senna. Consider use of Bisacodyl suppository if having constipation Early mobilization to prevent medical complications: DVTs, orthostasis, pulmonary embolism, pneumonia, minimize effects of deconditioning. OOB during day for at least 3 hours at a time BID for increased arousal/wakefulness/conditioning. Precautions: Fall/Safety, Cardiac and bleed Goals: REHAB GOALS: Mobility: Modified Independent Transfers: Mod I Self-Care tasks: Mod I Bowel and bladder management: continent Com cog baseline MEDICAL GOALS: Good glycemic control, hemodynamic stability, lungs clear, skin intact, , mood stable, balanced bowel and bladder, pain managed Barriers to immediate discharge to prior living situation include: ?? above noted new/worsened impairments and their resultant reduction in function from premorbid status (as noted above) ?? patient/caregiver lack of knowledge in managing new impairments/medical diagnoses ?? need for new/ongoing medical interventions ?? inaccessible home environment ?? need for caregiver training ?? need to function at a higher level than current due to no or limited caregiver assistance available ?? lack of access to care in another setting ?? training required with durable medical equipment Risks for medical and/or functional complications to patient if NOT admitted to Inpatient Rehabilitation Facility with daily physician management including physical medicine and rehabilitation physician, rehabilitation specialty nursing, multidisciplinary therapy program with access to rehabilitation psychology, orthotics/prosthetics include: ?? Inadequate management of hypertension ?? Aspiration pneumonia risk ?? Malnutrition and/or dehydration due to insufficient intake of food/fluids orally ?? Pressure sore development or worsening ?? Wound non- or impaired healing ?? Urinary tract infection due to incomplete bladder emptying or prolonged catheterization ?? Constipation ?? Hypoxemia ?? Muscle/joint/soft tissue contractures ?? Insufficiently managed musculoskeletal or neuropathic pain ?? Worsened neurologic status due to medications/metabolic causes/worsened medical disease ?? Not reaching full potential for functional recovery for transfers, ambulation, mobility, self care, communication, cognition due to inadequate or incorrect specialized therapy services THEREFORE: Admit to comprehensive inpatient rehabilitation program including: ?? physical therapy 5 days per week 60 minutes each day ?? occupational therapy 5 days per week 60 minutes each day ?? rehabilitation nursing twenty four hours/day ?? speech therapy 5 days per week 60 minutes each day as needed ?? psychology consultation as needed Overall Goals for Inpatient Rehabilitation Facility admission: Achieve/Maintain Medical Stability Achieve safe and adequate nutrition and hydration Achieve Adequate management of pain Determine need for and assist in obtaining needed Durable Medical Equipment Patient and family education/training Maximize cognition and communication Maximize mobility Maximize self care/ADLs Prognosis: At the current time, this inpatient hospital rehabilitation stay is medically necessary to achieve important health and functional goals. The patient requires frequent physician visits, 24-hour rehabilitation nursing, and a coordinated intensive rehabilitation program as described above to address complex medical, nursing, and rehabilitation needs. The patient has a good prognosis for benefiting from this program and returning home and community. Anticipated discharge destination: Home with family Anticipated continued treatments after Inpatient Rehabilitation Facility discharge: [facility] vs OP therapy program. I reviewed this plan with patient and he is in agreement to proceed. This post admission physician assessment is in agreement with the preadmission assessment performed. Statement of Medical Necessity: The patient is sufficiently stable to participate in the rehabilitation program. In my professional judgment and rehabilitation experience, the patient meets medical necessity criteria, requires an inpatient stay to manage his/her needs for nursing and medical management ( the nursing needs require rehabilitation nursing, the medical needs require supervision by a rehabilitation physician at least three times per week), and requires the interdisciplinary team approach of an intensive inpatient rehabilitation program. The patient can reasonably be expected to par ticipate in, and benefit from, the intensive rehabilitation program. Estimated Length of Stay: 2-3 weeks Post Admission Assessment: I have had the [...] provide comprehensive inpatient rehabilitation, which may include PT, OT, PULLING UNIT FLOORHAND and Neuropsychology and supportive services to improve functional outcome of impaired mobility, ADLs, transfers, and self-care Clinical Liaison facilitating this admission: FLORENCIA TYSON MD 05/12/19 Time spent on record review, exam, counseling/coordination of care: 2 Hours documented in this encounter Nursing Notes * Estrella Ford RN - 05/28/2019 11:55 AM CST Dc instructions and follow up with patient and Nephew also seen by Dr Moulton at time of dc. All belongings were sent to home assisted to private auto without issues staff assist to car family to transport to home. * Estrella Ford RN - 05/27/2019 7:48 AM CST Per Carlos OT patient declined shower today * Jessica Emerson RN - 05/26/2019 7:33 PM CST Patient calm and cooperative with cares today, pt refused lactulose this afternoon, stated he had aBM this morning, Dr. Donato visited with patient today at bedside and discussed plan of care for patient after discharge with both patient and his family at bedside. Patient in bed, safety alarm on, call light in reach. * Asya Lucio RN - 05/25/2019 7:47 PM CST Pt up in chair and bed throughout shift, participating with therapy, currently with dialysis nurse.Dialysis labs (cbc and bmp) obtained and shipping supervisor asked to call for machine operator picker this evening. Pt had uneventful shift. Per Dr Donato, pt epogen is to be given with dialysis treatment... this was given todialysis nurse to administer per orders of Dr. Donato. * Sol Conrad RN - 05/25/2019 4:11 AM CST Patient had a restful night, denies pain, no s/s of distress noted. Assessment as charted, call light within reach. * Estrella Ford RN - 05/20/2019 3:[address] Hathaway made Aware of elevated BP's after dialysis as noted on flow sheet. Dr Hathaway also aware of new left leg pain today hip to ankle per this patient. described as an ache and pain po RX for this co and this patient was repositioned for comfort * Ivett Arellano RN - 05/18/2019 5:51 PM CST Dialysis completed, 2L fluid removed * Ivett Arellano RN - 05/18/2019 5:42 PM CST Call to Dr Hathaway, received verbal ok to give the 80mg of Lasix even though he has received dialysis today ans has has 2L of Fluid removed. Will Give the lasix if B/P is stable * Vero Baldwin RN - 05/16/2019 3:49 PM CST Patient alert and oriented x3, denied any pain , tolerating diet well denied any nausea or vomit . Low blood pressure CORK COMPOUNDER aware , Will continue to monitor. * Britt Quach RN - 05/14/2019 6:10 AM CST Bladder scan results this morning is [address] Moulton with results. No new orders. * Rosalind Snyder RN - 05/11/2019 7:34 PM CST Pt arrived on unit at 1915, acclimated to room, safety & fall precautions, VS WNL documented in this encounter Miscellaneous Notes * Plan of Care - Estrella Ford RN - 05/28/2019 9:56 AM CST Problem: Infection Goal: Absence of infection and [...] facility with appropriate resources Outcome: Progressing Goal: manager supply will develop a plan to 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 burden and 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 in role Outcome: Progressing Problem: Knowledge Deficit Goal: Patient/family/caregiver [...] is Maintained or Improved Outcome: Progressing Problem: Case Management Discharge Goals Goal: Identify patient's discharge goals Outcome: Progressing Goal: Coordinate Safe Discharge Plan Outcome: Progressing Goal: Work with the treatment team to assess caregiver capability Outcome: Progressing Problem: Pain Goal: Patient's pain/discomfort is manageable Outcome: Progressing * Plan of Care - Rosalind Snyder RN - 05/27/2019 10:33 PM CST Problem: Infection Goal: Absence of infection and [...] facility with appropriate resources Outcome: Progressing Goal: manager supply will develop a plan to 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 burden and 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 in role Outcome: Progressing Problem: Knowledge Deficit Goal: Patient/family/caregiver [...] is Maintained or Improved Outcome: Progressing Problem: Case Management Discharge Goals Goal: Identify patient's discharge goals Outcome: Progressing Goal: Coordinate Safe Discharge Plan Outcome: Progressing Goal: Work with the treatment team to assess caregiver capability Outcome: Progressing Problem: Pain Goal: Patient's pain/discomfort is manageable Outcome: Progressing * Plan of Care - Estrella Ford RN - 05/27/2019 6:18 PM CST Problem: Infection Goal: Absence of infection and [...] facility with appropriate resources Outcome: Progressing Goal: manager supply will develop a plan to 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 burden and 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 in role Outcome: Progressing Problem: Knowledge Deficit Goal: Patient/family/caregiver [...] is Maintained or Improved Outcome: Progressing Problem: Case Management Discharge Goals Goal: Identify patient's discharge goals Outcome: Progressing Goal: Coordinate Safe Discharge Plan Outcome: Progressing Goal: Work with the treatment team to assess caregiver capability Outcome: Progressing Problem: Pain Goal: Patient's pain/discomfort is manageable Outcome: Progressing * OT Discharge Summary - Carlos Caba OT - 05/27/2019 12:26 PM CST Occupational Therapy Discharge Summary Patient Name: Jules Mitchell Patient Birthdate: 1945 OT Current Functional Status: Jules Mitchell is completing the following: EATING: with modified independence ORAL HYGIENE:with modified independence TOILETING:with modified independence BATHING:with supervision UPPER BODY DRESSING:with setup assist/supervision LOWER BODY DRESSING:with setup assist/supervision FOOTWEAR:with setup assist/supervision ROLL RIGHT/LEFT:with supervision SIT TO LYING:with supervision for use of leg hospital laboratory technician LYING TO SIT:with supervision for use of leg hospital laboratory technician SIT TO STAND:with modified independence CHAIR/BED TO CHAIR TRANSFER:with modified independence TOILET TRANSFER:with modified independence Jules Mitchell is demonstrating progress with sit <> stand transfers, bed/chair transfers, toilettransfers and toileting. Jules Mitchell continues to present with impaired safety awareness, impaired cognition, impaired endurance, impaired standing balance and tolerance, limiting independence with ADLs and functional transfers. Jules Mitchell would benefit from continued OT in the home health setting to maximize safety/independence within the home during ADL's, IADL's, community access/mobility, and leisure pursuits. Facilitating Factors in Goal Achievement: Improved functional mobility, Improved strength, Improvedsafety awareness and Use of compensatory strategies Barriers to Goal Achievement: Balance deficits, Diminished endurance, Strength limitations, Cognitive deficits, Decreased patient understanding, Pain and Decreased safety awareness Date Last Assessed: 05/27/2019 Patient needs assistance with the following activities: Activities of daily living, Vision, Sittingbalance, Going out in the community and Use of bathroom equipment CARE Scores Mario: 6: Independent. Chester provides no assistance with tasks. A device may or may not have been used. 5: Set-up or clean-up assistance. Chester sets up or cleans up, but does not assist with tasks. Chester may have assisted prior to or following the activity. 4: Supervision or touching assistance. Chester provides verbal cues or touching/steadying or contactguard assistance. Assistance may be provided throughout the activity or intermittently. 3: Partial/moderate assistance. Chester does less than half the effort. Chester lifts, holds, or supports trunk or limbs, but provides less than half the effort. 2: Substantial/maximal assistance. Chester does more than half the effort. Chester lifts or holds trunk or limbs, and provides more than half the effort. 1: Dependent. Chester does all of the effort, or the [...] due to medical condition or safety concerns Elementary Education Tutor Goals: Goal Goal Status Discharge Status Eating LTG: Independent Achieved Eating - CARE Score: 6 (05/27/19 1224 : Carlos Caba OT) Oral Hygiene LTG: Independent Achieved Oral Hygiene - CARE Score: 6 (05/27/19 1224 : Carlos Caba OT) Toileting Hygiene LTG: Independent Achieved Toileting Hygiene - CARE Score: 6 (05/27/19 1224 : Carlos Caba OT) Shower/Bathe Self LTG: Supervision or touching assistance Achieved Shower/Bathe Self - CARE Score: 4 (05/27/19 1224 : Carlos Caba OT) Upper Body Dressing LTG: Independent Achieved Upper Body Dressing - CARE Score: 4 (05/27/19 1224 : Carlos Caba OT) Lower Body Dressing LTG: Supervision or touching assistance Achieved Lower Body Dressing - CARE Score: 4 (05/27/19 1224 : Carlos Caba OT) N/A or No Goal Listed Putting On/Taking Off Footwear - CARE Score: 4 (05/27/19 1224 : Carlos Caba OT) Not Achieved Roll Left and Right - CARE Score: 4 (05/27/19 1224 : Carlos Caba OT) N/A or No Goal Listed Sit to Lying - CARE Score: 4 (05/27/19 1224 : Carlos Caba OT) N/A or No Goal Listed Lying to Sitting on Side of Bed - CARE Score: 4 (05/27/19 1224 : Carlos Caba OT) N/A or No Goal Listed Sit to Stand - CARE Score: 6 (05/27/19 1224 : Carlos Caba OT) Chair/Dgr-la-Sazwu Transfer LTG: Independent Achieved Chair/Owk-cd-Pbjkp Transfer - CARE Score: 6 (05/27/19 1224 : Carlos Caba OT) Toilet Transfer LTG: Independent Achieved Toilet Transfer - CARE Score: 6 (05/27/19 1224 : Carlos Elder OT) Discharge Instructions given to patient: CARLOS CABA OT 05/27/2019 * [facility]ING [facility]IT FLOORHAND Discharge Summary - Radha Easley - 05/27/2019 11:18 AM CST Speech Language Pathologist Discharge Summary Patient Name: Jules Mitchell Patient Birthdate: 1945 [employer] [employer] Current Functional Status: Mr. Vicente's current functional status is as follows: DIET: Regular with thin liquids. ??No dysphagia reported or suspected. Patient. Is edentulous and does not have dentures. Patient reports he is able to 'gum' any food he desires to eat without restrictions. COMPREHENSION: Supervision with basic daily needs - He benefited from repetition and slowed speech rate and understood statements regarding basic, routine issues EXPRESSION: Supervision. Patient communicates basic wants and needs and needs moderate to greater assist when discussing complex topics. Fair speech intelligibility with speech intelligibility being impaired due to fast rate and endentulous SOCIAL INTERACTION: Supervision - additional prompts for increased engagement, participation, eye contact PROBLEM SOLVING: Minimal assistance - Patient requires prompting or redirection to problem solve appropriately some of the time MEMORY: Minimal assistance - Patient presents with cognitive deficits in areas of recall and orientation requiring min cues. PROGRESS: Patient with improved basic attention, divergent naming, and simple problem solving improving from moderate assistance to min assistance. He improved intelligibility using compensatory strategies for dysarthria. Facilitating Factors in Goal Achievement: Patient compliance, Improvement in cognitive skills and Patient motivation Barriers to Goal Achievement: Communication deficits and Other (comment) (decreased functional recall and indpendent use of reacall strategies) Date Last Assessed: 05/27/2019 Elementary Education Tutor Goals: Goal Goal Status Discharge Status PULLING [facility]IT FLOORHAND Custodial Goal 1: Expression Level of Assistance to Meet Elementary Education Tutor Goal 1: Standby (less than 10%) [facility]LOOR[facility] Custodial Goal 1 Details: Client will be 90% intelligible in conversation with an unfamiliar listener to improve speech intelligibility at home and in the community. P[facility]ING [facility]IT FLOOR[facility] Custodial Goal 1 Expected Achievement Date: 05/26/19 Partially Achieved min assist P[employer]ING [facility]IT FLOOR[facility] Custodial Goal 2: Additional Cognition Level of Assistance to Meet Elementary Education Tutor Goal 2: Standby (less than 10%) [employer]LO[employer] Elementary Education Tutor Goal 2 Details: Patient will improve cognitive linguistic skills to function with Lisa at home and in the community. [facility]LO[employer] Elementary Education Tutor Goal 2 Expected Achievement Date: 05/26/19 Achieved Achieved N/A or No Goal Listed N/A or No Goal Listed N/A or No Goal Listed N/A or No Goal Listed N/A or No Goal Listed N/A or No Goal Listed Additional Goals: N/A Discharge Instructions: 1. No further speech therapy. Suspect cognition is at baseline. 2. Family to complete IADLs including cooking, medication management, driving. 3. Continue use of compensatory strategies to aid dysarthria including slow rate of speech, repetition of unintelligible utterances, and limiting distractions during conversation. 4. Patient would benefit from familiar routines and use of written cues to aid in recall. RADHA EASLEY 05/27/2019 Cosigned by Paz Linn CCC-PULLING UNIT FLOORHAND at 05/27/2019 3:09 PM GLOVE TAGGER * PT Discharge Summary - Kylie Sanchez, PT - 05/27/2019 11:05 AM GLOVE TAGGER Physical Therapy Discharge Summary Patient Name: Jules Mitchell Patient Birthdate: 1945 PT CURRENT FUNCTIONAL STATUS: PT Current Functional Status: PT Current Functional Status: Mr. Jules Mitchell's current functional mobility is as follows. TRANSFERS: Sit to and from stand with modified independence and increased time. Stand pivot transfer with modified independence and increased time. Car transfer with rigid leg hospital laboratory technician and modified independence with increased time. GAIT: Ambulates up to 276 feet with rolling walker and modified independence and increased time. Ambulates across uneven surface with rolling walker and distant supervision. ELEVATIONS Ascends/descends up to 12 steps at 6 inches each with 2 handrails and distant supervision and increased time to complete. Ascends/descends 6 [address] curb step. WHEELCHAIR ASSESSMENT: propels manual wheelchair 100 feet with moderate assistance prior to requiring total assistance for all remaining mobility ?? Standardized Assessment: 2 Minute Walk Test: 120 feet with rolling walker. Timed Up and Go: 57.1 seconds with rolling walker. ?? He presents with the below listed impairments. He is to discharge to home with follow up home health therapy services, where he would benefit from skilled rehabilitation services at this time in order to further improve upon the below listed impairments and prepare for return to prior level of function. Factors in Goal Achievement: Facilitating Factors: Improved functional mobility, Improved balance and Support of family or caregiver Barriers: Pain, Strength limitations, Balance deficits, ROM limitations, Diminished endurance, Decreased patient attendance and participation, Decreased patient compliance, Decreased safety awareness, Medical Complications and Decreased patient understanding Date Last Assessed: 05/27/2019 Patient needs assistance with the following activities: Balance, Negotiating ramps or curbs, Negotiating stairs, Reaching, Rolling, Use of ambulatory device, Walking and/or mobility and Wheelchair management RLE: Weight-bearing as tolerated LLE: Weight-bearing as tolerated DME Recommendations Common Therapy DME: Walker Walker : 2 Wheeled Walker - 5in Wheels CARE Scores Mario: 6: Independent. Chester provides no assistance with tasks. A device may or may not have been used. 5: Set-up or clean-up assistance. Chester sets up or cleans up, but does not assist with tasks. Chester may have assisted prior to or following the activity. 4: Supervision or touching assistance. Chester provides verbal cues or touching/steadying or contactguard assistance. Assistance may be provided throughout the activity or intermittently. 3: Partial/moderate assistance. Chester does less than half the effort. Chester lifts, holds, or supports trunk or limbs, but provides less than half the effort. 2: Substantial/maximal assistance. Chester does more than half the effort. Chester lifts or holds trunk or limbs, and provides more than half the effort. 1: Dependent. Chester does all of the effort, or the [...] due to medical condition or safety concerns Custodial Goals: Goal Goal Status Discharge Status Car Transfer LTG: Independent(Pt to perform car transfer mobility with LRAD and Mod I to demonstrate safe mobility in/out of the car to return to home. ) Achieved Car Transfer - CARE Score: 6 (05/27/19 1034 : Kylie Sanchez, PT) Walk 10 Feet - CARE Score: 6 (05/27/19 1034 : Kylie Sanchez PT) Walk 50 Feet with Two Turns LTG: Independent(Pt to ambulate up to 50 feet with LRAD and Mod I in order to demonstrate safe mobility within the home alone throughout the day. ) Achieved Walk 50 Feet with Two Turns - CARE Score: 6 (05/27/19 1034 : Kylie Sanchez PT) Walk 150 Feet - CARE Score: 6 (05/27/19 1034 : Kylie Sanchez PT) Walking 10 Feet on Uneven Surfaces - CARE Score: 4 (05/27/19 1034 : Kylie Sanchez PT) 1 Step (Curb) - CARE Score: 4 (05/27/19 1034 : Kylie Sanchez PT) 4 Steps - CARE Score: 4 (05/27/19 1034 : Kylie Sanchez PT) 12 Steps LTG: Independent(Pt to ascend/descend at least 12 steps in order to demonstrate safe mobility in/out of the home (6 steps) with 1 HR and LRAD and Mod I. ) Not Achieved 12 Steps - CARE Score:4 (05/27/19 1034 : Kylie Sanchez PT) Picking Up Object - CARE Score: 6 (05/27/19 1034 : Kylie Sanchez PT) Wheel 50 Feet with Two Turns - CARE Score: 3 (05/27/19 1034 : Kylie Sanchez PT) Wheel 150 Feet - CARE Score: 2 (05/27/19 1034 : Kylie Sanchez PT) PT Other Custodial Goals Most Recent Value Other PT Custodial Goals Other Goals - Elementary Education Tutor Custodial 1 Filed on: 05/12/2019 1450 Other Custodial Goal 1 Pt to perform 2MWT with a distance of at least 40 feet in order to demonstrate improved overall mobility. Filed on: 05/12/2019 145 Other Elementary Education Tutor Goal 1 Status Established Filed on: 05/12/2019 145 Expected Achievement Date 06/02/19 Filed on: 05/12/2019 145 PT OTHER [facility] GOALS: Goal 1: Achieved KYLIE SANCHEZ PT 05/27/2019 * PT Treatment Note - Kylie Sanchez PT - 05/27/2019 9:15 AM CST PT Treatment Patient Name: Jules Mitchell Patient Birthdate: 1945 Patient Subjective Report - Pt seated in w/c upon entry. Agreeable to therapy. Pain Assessment Pain Context: Therapy Assessment Prior to Treatment (05/27/19914) Pain Assessment: None/denies pain (05/27/19914) Ambulation Level of Assistance: Distant Supervision and Modified Independent Distance (feet): 276 Gait Analysis: 1 x 276' with RW and Mod I (greatly increased time to complete overall). Pt demonstrates ambulation over even surfaces with Mod I and over uneven surfaces with RW and distant supervision. Pt demonstrates increased forward trunk flexion, increased reliance on UE support from RW for balance and to decrease weight bearing on L LE, decreased foot clearance, and decreased joao. Pt requires seated rest break upon completion for increased time upon completion. Rails: Bilateral Stairs Level of Assistance: Distant Supervision and Minimal Verbal Cues Stairs Height of Step: 6-inch Stair Analysis: Pt ascends/descends up to 12 steps at 6 inches each with B HR and distant supervision throughout. Pt performs with non-reciprocal pattern and greatly increased time to complete overall. He requires intermittent cues for safety with step sequencing to alleviate L hip during mobility.Seated rest break for prolonged time upon completion. Number of Steps: 12 Transfer to 1: Stand Transfer from 1: Wheelchair Technique 1: Sit to stand and Stand to sit Transfer Level of Assistance 1: Modified Independent Trials/Comments1: Greatly increased time to complete (up to RW for UE support). Transfer to 2: Car Transfer from 2: Wheelchair Technique 2: Stand pivot Transfer Level of Assistance 2: Modified Independent Trials/Comments 2: With increased time to complete and use of rigid leg hospital laboratory technician to complete for L LEinto/out of vehicle. Pt is able to perform with posterior scoot once on car seat to maximize clearance of L LE into vehicle. No verbal cues for mobility. Wheelchair Level of Assistance: Moderate Assistance Distance Traveled in Wheelchair (feet): 100 Wheelchair Type: Manual Wheelchair cushion: Pressure relieving Surface: Even surface and Uneven surface Propulsion Method: Bilateral upper extremity and Bilateral lower extremity Wheelchair Propulsion Level of Assistance: Moderate Assistance Wheelchair Analysis: Pt propels w/c up to 100' with B UE and LE's and consistent Mod A for force production with greatly increased time to complete. Pt requires total assistance for all remaining wheelchair mobility. Activity comment: PICKING UP OBJECTS FROM FLOOR: - pt performs picking up objects from floor with use of RW for UE support and videotape recording engineer to machine operator picker objects. Pt is able to perform with greatly increased time to complete and Mod I overall. Seated rest break upon completion. Were respiratory Interventions provided?: No Special Test and Outcome Measures: Timed Up and Go 05/27/19 0900 Timed Up and Go (TUG) Trial 1 (in seconds) 63.11 (With RW and Mod I) Trial 2 (in seconds) 53.67 Trial 3 (in seconds) 54.53 Average of three trials 57.1 PT Treatment Outcomes:: Patient is progressing toward STG, Patient tolerated treatment well, Safetydevice reapplied, Improved balance and coordination, Improved ambulation performance, Improved safety awareness, Improving overall functional endurance noted, Compensatory strategies effectively usedand Cues needed for safety PT Summary:: Patient remained up sitting in [...] Evaluation and Follow-up Pain Reassessment: No pain (05/27/19 1000) Nursing notified of patient's pain assessment: Not indicated - pain score 2 or less (05/27/19 1000) Pain Evaluation and Follow-up Pain Reassessment: No pain (05/27/19 1043) Nursing notified of patient's pain assessment: Not indicated - pain score 2 or less (05/27/19 1043) Therapy Minutes Individual Concurrent Co-Treat Time In : 0915 Time Out: 1045 Total Time with Patient (Min): 90 min Missed Minutes : 0 KYLIE SANCHEZ, PT 05/27/2019 * [facility]ING [facility]IT FLOORHAND Treatment Note - Radha Easley - 05/27/2019 8:15 AM CST Speech Language Pathologist Treatment Patient Name: Jules Mitchell Patient Birthdate: 1945 Patient Subjective Report - Patient was upright alert in wheelchair in room. Pain Assessment Pain Context: Therapy Assessment Prior to Treatment (05/27/19814) Pain Score: 0 - No pain (05/27/19814) Cognitive Communication: Functional problem solving, Orientation, Pragmatics and social interaction, Task persistence, Verbal organization, Compensatory techniques for cognition, Speed of processing,Verbal problem solving, Organization and Basic attention Dysarthria: Articulation, Speech intelligibility, Compensatory techniques for dysarthria and Conversational speech Patient/Caregiver Training: Cognitive Communication Disorder, Cognitive strategies, Communication strategies, Dysarthria, Completed with patient and Therapy goals and treatment plan Special Test and Outcome Measures: [facility] Mental Status Examination ST Narrative:: Therapist readministered [facility] Mental Status Examination (SLUMS) this date with patient scoring 10/30 indicating cognitive deficits in areas of orientation to day of the week and year, functional math, recall, clock drawing, and comprehension a slight decrease from his score of 11/30 upon admission. Educated patient regarding the results of the SLUMS and cognitive deficits and impact on safety with ADLs and IADLs at this time and patient verbalized understanding.Patient educated on discharge recommendations of assistance with medical and financial writer, no cooking, and no driving and patient verbalized understanding reporting that his nephew already helps him with this. Patient solved verbal problem solving prompts with 80% accuracy with mod cues. Henamed 5 items in a given category with 75% accuracy and min cues and named 11 items of a target given category in 60 seconds. He demonstrated 90% intelligibility in context and 80% intelligibility out of context in this session requiring min cues to use compensatory strategies for dysarthria. Overall, patient was pleasant and cooperative. He continued to present with cognitive deficits as evidenced by his score on the SLUMS and decreased verbal problem solving and divergent naming skills.He demonstrated increased divergent naming skills and increased intelligibility and use of intelligibility strategies without frustration. Patient scheduled to discharge tomorrow. Patient remained up sitting in chair at end of session with pelvic positioning belt on, chair alarmin place, call light and phone within reach. ST Session Outcomes: Tolerated treatment well, Strategies effectively used, Patient/family education progressing, Moderate cues during session and Progressing toward STGs ST Summary Plan of Care: Continue with current plan of care Pain Evaluation and Follow-up Pain Reassessment: No pain (05/27/19 0859) Therapy Minutes Individual Concurrent Co-Treat Time In : 0815 Time Out: 0900 Total Time with Patient (Min): 45 min Missed Minutes : 0 RADHA EASLEY 05/27/2019 Cosigned by Paz Linn CCC-PULLING UNIT FLOORHAND at 05/27/2019 1:32 PM GLOVE TAGGER * OT Treatment Note - Carlos Caba OT - 05/27/2019 7:30 AM CST Occupational Therapy Treatment Patient Name: Jules Mitchell Patient Birthdate: 1945 Pain Assessment Pain Context: Therapy Assessment Prior to Treatment (05/27/19 0730) Pain Assessment: None/denies pain (05/27/19 0730) ADL Status: Eating: Modified Independent Eating Where Assessed: Edge of bed Feeding Comments: Pt able to complete with increased time for opening items. Bathing Comments: Pt encouraged to participate in bathing reassessment however pt declines to participate. Toileting: Modified Independent Toileting Where Assessed: Toilet Toilet Comments: Pt able to complete 3/3 steps with significantly increased time for clothing management cruz-care. Dressing Upper Body: Setup Upper Body Dressing Comments: Per nursing and pt report - pt able to complete with setup assistanceto initiate task. Dressing Lower Body: Close Supervision Lower Body Dressing Where Assessed: Sitting edge of bed and Standing Lower Body Dressing Comments: Per nursing and pt report - pt requires setup assist/supervision during LB dressing and significantly increased time. Setup assist for item retrieval to initiate task and close supervision due to impaired balance. Toilet Transfer: Modified Independent Toilet Transfer to: Standard toilet Toilet Transfer From: Bed Toilet Transfer Technique: Ambulatory Toilet Transfers Comments: Pt requires significantly increased time and use of RW. Pt able to manage doors and turns with significantly increased time. Bed, Chair, Wheelchair Transfer: Modified Independent Bed/Chair Transfer to: Stand Bed/Chair Transfer from: Wheelchair Bed/Chair Transfer Technique: Stand to sit and Sit to stand Mobility Assist for Money Management: Close Supervision Money Management: Pt participates in problem-solving, task focus and functional memory training through use of money management board. Pt retrieves 4/6 amounts accurately (progressing from 50% accuracy to with significantly increased time/without verbal cues. Pt requires moderate to maximal verbal cues for strategies and problem-solving throughout task. Pt participates in training to improve functional coordination during self-care/IADL's. Bed Mobility: Performed on bed Bed Mobility Level of Assistance: Close Supervision Bed Mobility Comment: Pt requires cues for use of leg hospital laboratory technician and significantly increased time. Treatment, Outcomes and Plan: OT Narrative:: Pt participates well in therapy on this date. Patient remained up sitting in chair at end of session with pelvic positioning belt on, chair alarm in place, call light and phone within reach. OT Treatment Outcomes:: Safety device reapplied and Patient tolerated treatment well OT Summary Plan of Care: Continue with current plan of care Pain Evaluation and Follow-up Pain Reassessment: No pain (05/27/19 0814) Nursing notified of patient's pain assessment: Not indicated - pain score 2 or less (05/27/19 0814) Therapy Minutes Individual Concurrent Co-Treat Time In : 0730 Time Out: 0815 Total Time with Patient (Min): 45 min Missed Minutes : 0 CARLOS CABA OT 05/27/2019 * Plan of Care - Momo Cash RN - 05/27/2019 12:45 AM GLOVE TAGGER Problem: Infection Goal: Absence of infection and [...] facility with appropriate resources Outcome: Progressing Goal: manager supply will develop a plan to 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 burden and 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 in role Outcome: Progressing Problem: Knowledge Deficit Goal: Patient/family/caregiver [...] is Maintained or Improved Outcome: Progressing Problem: Case Management Discharge Goals Goal: Identify patient's discharge goals Outcome: Progressing Goal: Coordinate Safe Discharge Plan Outcome: Progressing Goal: Work with the treatment team to assess caregiver capability Outcome: Progressing Problem: Pain Goal: Patient's pain/discomfort is manageable Outcome: Progressing * OT Treatment Note - Carlos Caba OT - 05/26/2019 1:01 PM CST Occupational Therapy Treatment Patient Name: Jules Mitchell Patient Birthdate: 1945 Pain Assessment Pain Context: Therapy Assessment Prior to Treatment (05/26/19 1301) Pain Assessment: None/denies pain (05/26/19 1301) ADL Status: Bathing Comments: Pt offered shower however pt declines. Bed, Chair, Wheelchair Transfer: Modified Independent Bed/Chair Transfer to: Stand Bed/Chair Transfer from: Wheelchair Bed/Chair Transfer Technique: Stand to sit and Sit to stand Assistive Devices Used: Walker Bed/Chair Transfer Comments: Pt able to complete with increased time and use of visual aide for reminder for safety techniques. Mobility Assist for Meal Prep: Walker Meal Prep Level of Assistance: Close Supervision Meal Preparation: Pt participates in simple meal prep task (making a sandwich) to simulate IADL's performed at home. Pt requires minimal verbal cues for safe use of walker and safe navigation throughout kitchen. Pt demonstrates improved balance throughout task - completing with SBA with RW and no LOB noted. Pt participates to improve home safety and meal prep safety upon discharge. Other I_ADL Training: Other I-ADL Training: Pt participates in home safety awareness training through use of home safety picture cards. Pt requires significantly increased time and only incidental verbal cues (progressed from moderate assist) to identify safety hazards/environment hazards throughout training. Pt able toidentify 12 safety hazards with minimal assist for reasoning. Pt participates to improve home safety upon discharge. Pt would benefit from further training to improve problem-solving and safety awareness throughout ADL's, IADL's, and home navigation/mobility. ?? OT Therapeutic Activity: Therapeutic Activity: Pt participates in item retrieval training through kitchen mobility and navigation training. Pt prompted to retrieve x6 items from various household locations such as washer/dryer, cabinets, desk operator, and drawers. Pt participates in training to improve household ambulation during IADL's upon discharge. Pt requires distant supervision for safety during functional ambulation- requiring cues for safe dynamic reaching and safe use of assistive device. Pt also participates in training to improve dynamic standing balance/functional endurance during self-care. Cognitive Skills Training: Cognitive Skills Training: Pt participates in deductive reasoning, memory training, and problem-solving training through task x approximately 30 minutes. Pt requires minimal verbal cues for reminders of directions and for deductive reasoning skills throughout task. Throughout training, pt demos improved carryover of directions and requires less cues. Pt participates in training to improve reasoning skills during self-care and IADL tasks. Treatment, Outcomes and Plan: OT Narrative:: Pt participates well in therapy on this date. Patient remained up sitting in chair at end of session with pelvic positioning belt on, chair alarm in place, call light and phone within reach. OT Treatment Outcomes:: Safety device reapplied and Patient tolerated treatment well OT Summary Plan of Care: Continue with current plan of care Pain Evaluation and Follow-up Pain Reassessment: No pain (05/26/19 1400) Nursing notified of patient's pain assessment: Not indicated - pain score 2 or less (05/26/19 1400) Therapy Minutes Individual Concurrent Co-Treat Time In : 1301 Time Out: 1434 Total Time with Patient (Min): 93 min Missed Minutes : 3 CARLOS CABA OT 05/26/2019 * Plan of Care - Asya Lucio RN - 05/26/2019 12:55 PM CST Educated pt on repositioning and fall safety precautions, pt verbalizing understanding * PULLING UNIT FLOORHAND Treatment Note - [facility] - 05/26/2019 12:32 PM CST Speech Language Pathologist Treatment Patient Name: Jules Mitchell Patient Birthdate: 1945 Prior to team conference, the Primary Therapist Paz Linn and I have communicated regarding current patient status, progress towards goals, and modifications to plan of care, as appropriate. ROBERT HAMMOND ST 05/26/2019 * OT Weekly Progress Note - Carlos Caba OT - 05/26/2019 12:27 PM GLOVE TAGGER Occupational Therapy Weekly Progress Note Patient Name: Jules Mitchell Patient Birthdate: 1945 OT Current Functional Status: Jules Mitchell is completing the following: EATING: with modified independence ORAL HYGIENE:with modified independence TOILETING:with supervision BATHING:with supervision UPPER BODY DRESSING:with setup assistance LOWER BODY DRESSING:with setup assistance/supervision FOOTWEAR:with setup assist/supervision ROLL RIGHT/LEFT:with supervision SIT TO LYING:with supervision with verbal cues for use of leg hospital laboratory technician LYING TO SIT:with supervision with verbal cues for use of leg hospital 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 In addition, Mr. Mitchell has demonstrated improved dynamic balance, improved standing tolerance and improved overall functional endurance. Jules Mitchell continues to present with impaired safety awareness, impaired problem- solving, impaired endurance, impaired strength/balance, and pain limiting independence with ADLs and functional transfers. Jules Mitchell would benefit from continued intensive OT to address continued barriers for safe return to prior level of function. Facilitating Factors in Goal Achievement: Improved functional mobility, Improved strength, Improvedsafety awareness and Use of compensatory strategies Barriers to Goal Achievement: Balance deficits, Diminished endurance, Strength limitations, Cognitive deficits, Decreased patient understanding, Pain and Decreased safety awareness Date Last Assessed: 05/26/2019 Patient needs assistance with the following activities: Activities of daily living, Sitting balance, Reaching, Positioning, Use of bathroom equipment and Going out in the community Will patient require a prosthetic or orthotic device upon discharge: No CARE Score Mario: 6: Independent. Chester provides no assistance with tasks. A device may or may not have been used. 5: Set-up or clean-up assistance. Chester sets up or cleans up, but does not assist with tasks. Chester may have assisted prior to or following the activity. 4: Supervision or touching assistance. Chester provides verbal cues or touching/steadying or contactguard assistance. Assistance may be provided throughout the activity or intermittently. 3: Partial/moderate assistance. Chester does less than half the effort. Chester lifts, holds, or supports trunk or limbs, but provides less than half the effort. 2: Substantial/maximal assistance. Chester does more than half the effort. Chester lifts or holds trunk or limbs, and provides more than half the effort. 1: Dependent. Chester does all of the effort, or the [...] due to medical condition or safety concerns Elementary Education Tutor Goals: Goal Status on Admission Current Status Eating LTG: Independent Eating - CARE Score: 6 (05/12/19 114 : Carlos Caba OT) Eating - CARE Score: 6 (05/26/191224) Oral Hygiene LTG: Independent Oral Hygiene - CARE Score: 10 (05/12/19 114 : Carlos Caba OT) Oral Hygiene - CARE Score: 6 (05/26/191224) Toileting Hygiene LTG: Independent Toileting Hygiene - CARE Score: 3 (05/12/19 114 : Carlos Caba OT) Toileting Hygiene - CARE Score: 4 (05/26/191224) Shower/Bathe Self LTG: Supervision or touching assistance Shower/Bathe Self - CARE Score: 3 (05/12/191140 : Carlos Caba OT) Shower/Bathe Self - CARE Score: 4 (05/26/191224) Upper Body Dressing LTG: Independent Upper Body Dressing - CARE Score: 5 (05/12/19 114 : Carlos Caba OT) Upper Body Dressing - CARE Score: 4 (05/26/191224) Lower Body Dressing LTG: Supervision or touching assistance Lower Body Dressing - CARE Score: 2 (05/12/191140 : Carlos Caba OT) Lower Body Dressing - CARE Score: 4 (05/26/191224) Putting On/Taking Off Footwear - CARE Score: 3 (05/12/191140 : Carlos Caba OT) Putting On/Taking Off Footwear - CARE Score: 4 (05/26/191224) Roll Left and Right - CARE Score: 3 (05/12/191140 : Carlos Caba OT) Roll Left and Right - CAREScore: 4 (05/26/191224) Sit to Lying - CARE Score: 3 (05/12/191140 : Carlos Caba OT) Sit to Lying - CARE Score: 4 (05/26/191224) Lying to Sitting on Side of Bed - CARE Score: 3 (05/12/191140 : Carlos Caba OT) Lying to Sitting on Side of Bed - CARE Score: 4 (05/26/19 122) Sit to Stand - CARE Score: 3 (05/12/19 1141 : Carlos Caba OT) Sit to Stand - CARE Score: 4 (05/26/19 122) Chair/Kut-eh-Mdgwf Transfer LTG: Independent Chair/Jwp-eb-Nibez Transfer - CARE Score: 3 (05/12/19 1141 : Carlos Caba OT) Chair/Oyg-vo-Myrcz Transfer - CARE Score: 4 (05/26/19 122) Toilet Transfer LTG: Independent Toilet Transfer - CARE Score: 3 (05/12/19 1141 : Carlos Caba OT) Toilet Transfer - CARE Score: 4 (05/26/191224) OT Short Term Goal 1: Focus: Toileting Hygiene Details: Pt will complete toileting with minimal assistance using AE, AD as needed: ACHIEVED Pt will complete toileting with SBA using AE, AD as needed: ACHIEVED Pt will complete toileting with modified independence using AD as needed Expected Achievement Date: 06/02/2019 Goal Status: Established OT Short Term Goal 2: Focus: Shower/Bathe Details: Pt will complete bathing with contact guard assistance using shower chair/AE as needed: ACHIEVED Expected Achievement Date: 05/26/2019 Goal Status: Achieved OT Short Term Goal 3: Focus: Upper Body Dressing Details: Pt will complete UB dressing with modified independence Expected Achievement Date: 06/02/2019 Goal Status: Not Achieved OT Short Term Goal 4: Focus: Lower Body Dressing Details: Pt will complete LB dressing with minimal assistance using AE, AD as needed: ACHIEVED Pt will complete LB dressing with SBA using AE, AD as needed: ACHIEVED Pt will complete LB dressing with modified independence using AE, AD as needed Expected Achievement Date: 06/02/2019 Goal Status: Not Achieved OT Short Term Goal 5: Focus: Chair/Bed Transfer Details: Pt will complete bed/chair transfer with CGA using assistive device as needed: ACHIEVED Pt will complete bed/chair transfer with modified independence using AD as needed Expected Achievement Date: 06/02/2019 Goal Status: Not Achieved OT Short Term Goal 6: Focus: Toilet Transfer Details: Pt will complete toilet transfer with CGA using AD as needed: ACHIEVED Pt will complete toilet transfer with modified independence using AD, DME as needed Expected Achievement Date: 06/02/2019 Goal Status: Not Achieved CARLOS CABA OT 05/26/2019 * Team Conference - ALLY Zarco - 05/26/2019 12:26 PM CST Team Conference Note Date: 05/26/2019 Time: 12:32 PM Patient Name: Jules Mitchell Date of : 1945 Sex: Male Room/Bed: 204/204-1 Primary Insurance: Medicare Part B Admit Date/Time: 05/11/2019 7:19 PM Patient Active Problem List Diagnosis Date Noted ??? Hyperglycemia 05/14/2019 ??? Retention of urine [...] in adult 04/30/2019 Team Members Present: Attendees: Florencia Moulton MD, ALLY Zarco, Kylie Sanchez PT, Carlos Caba OT, KAITLYNN Garland, [facility] Paralegal Instructor in Attendance: ALMAZ NOE SW Patient/Family Present: Patient Present: No Patient's Family Present: No Anticipated Discharge 05/28/2019 Discharge Plan: Discharge Destination Type: Own Home Back-up Discharge Destination: Own Home Potential Barriers to Return to Prior Living (Use comments to be specific): Caregiver limitations;Capacity for self care;Mobility challenge;Architectural/environmental barrier(s);Home modification challenge;DME issue;Potential need for skills/non-skilled services;Potential need for 24 hour care Suicide Prevention: No Concerns identified at this time Medications: Current Facility-Administered Medications: ??? acetaminophen (TYLENOL) tablet 325 mg, 325 mg, PO/Per Tube, Q6H PRN, Misty Hathaway MD, 325 mgat 05/11/192320 ??? allopurinol (ZYLOPRIM) tablet 100 mg, 100 mg, Oral, Once a day, Misty Hathaway MD, 100 mg at 05/26/19805 ??? atorvastatin (LIPITOR) tablet 20 mg, 20 mg, Oral, Once a day, Misty Hathaway MD, 20 mg at 05/26/19805 ??? bisacodyl (DULCOLAX) suppository 10 mg, 10 mg, Rectal, Once, Manoj Morrison, CORK COMPOUNDER ??? dextrose (GLUTOSE) 40 % oral gel 15 g, 15 g, Oral, PRN, Manoj Morrison, CORK COMPOUNDER ??? dextrose 5 % and sodium chloride 0.45 % infusion, 50 mL/hr, Intravenous, PRN, Manoj Morrison, CORK COMPOUNDER ??? dextrose 50 % IV solution 25 g, 25 g, Intravenous, PRN, Manoj Morrison, CORK COMPOUNDER ??? Diclofenac Sodium (VOLTAREN) 1 % gel 2 g, 2 g, Topical, 2 times per day, Manoj Morrison, CORK COMPOUNDER, 2 g at 05/26/19806 ??? docusate sodium (COLACE) capsule 100 mg, 100 mg, Oral, Once a day, Misty Hathaway MD, 100 mg at 05/26/19806 ??? donepezil (ARICEPT) tablet 10 mg, 10 mg, Oral, Nightly, Misty Hathaway MD, 10 mg at 05/25/192124 ??? epoetin ashly-epbx (RETACRIT) 4,000 Units, 4,000 Units, Subcutaneous, T--Fri w/Dialysis, Froy Donato MD, 4,000 Units at 05/25/19 175 ??? folic acid (FOLVITE) tablet 1 mg, 1 mg, Oral, Once a day, Misty Hathaway MD, 1 mg at 05/26/19 0807 ??? furosemide (LASIX) tablet 80 mg, 80 mg, Oral, BID DIURETIC, ALEIDA Phan, 80 mg at 05/26/19 0805 ??? glucagon (human recombinant) injection 1 mg, 1 mg, Intramuscular, PRN, Manoj Morrison, NEENA ??? heparin (porcine) injection 1,000 Units, 1,000 Units, Intracatheter, Once per day on Fri, Debi Wetzel RN, 1,000 Units at 05/25/191935 ??? heparin (porcine) injection 1,000 Units, 1,000 Units, Intracatheter, Once per day on Fri, Debi Wetzel RN, 1,000 Units at 05/25/191935 ??? heparin (porcine) injection 2,000 Units, 2,000 Units, Intravenous, During Dialysis, Debi Wetzel RN, 2,000 Units at 05/20/19 1130 ??? heparin (porcine) injection 4,300 Units, 4,300 Units, Intravenous, Once per day on Fri [facility],Florencia Moulton MD, 4,300 Units at 05/25/19 1801 ? ? insulin lispro (HumaLOG) injection 0-6 Units, 0-6 Units, Subcutaneous, AC & HS, 2 Units at 05/16/19 1746 AND POCT glucose, , , AC & HS, Manoj Morrison NP ??? iron sucrose (VENOFER) injection 200 mg, 200 mg, Intravenous, During Dialysis, Carmen Donato MD, 200 mg at 05/25/19 1804 ??? lactulose (CHRONULAC) 10 GM/15ML solution 20 g, 20 g, Oral, 2 times per day, Manoj Morrison NP ??? lidocaine (LIDOCARE) 4 % patch 2 patch, 2 patch, Transdermal, Once a day, Manoj Morrison NP, 2 patch at 05/26/19 08 ??? MINERIN cream cream, , Topical, 2 times per day, Florencia Moulton MD ??? oxyCODONE-acetaminophen (PERCOCET) 5-325 MG 1 tablet, 1 tablet, Oral, Q6H PRN, Misty Hathaway MD, 1 tablet at 05/25/19 1842 ??? polyethylene glycol (MIRALAX) packet 17 g, 17 g, Oral, Daily PRN, Mike Zamora MD, 17 g at 05/26/19 0601 ??? tamsulosin (FLOMAX) 24 hr capsule 0.4 mg, 0.4 mg, Oral, Nightly, Misty Hathaway MD, 0.4 mg at 05/25/192124 Pharmacy: Nursing Team Conference: Bladder Continent: Continent Bladder Devices: Urinal Bladder Interventions: Post void residual monitoring Bowel Continent: Continent Bowel Devices: Adult brief Pain: Patient verbalizes pain Pain - Functional Impact: Sitting Aggravating Factors Impacting Pain: Activity Duration;Positioning Alleviating Factors Impacting Pain: Repositioning;Rest Pain Education Provided: Patient Non-Pharmacologic Pain Interventions: Rest;Position/Reposition Emotional/Spiritual Pain Interventions: Emotional Support Pain Pharmacologic Treatments: Medicated - see MAR Opiate Use Anticipated After Discharge: Possible Nutrition Intake: Oral Nutrition Level of Assistance: Supervision/Set-up Nutrition Interventions: None Respiratory O2 Delivery System: None Skin Intact: None Skin Interventions: Weight shift/Turned respositioned every 2 hours Wound Rx: None Safety Status: Good safety awareness;Follows instructions Safety Interventions: Education;Performed rounding Cognitive Orientation: Person;Place;Time Cognitive Deficits Observed: None Quality of Sleep: Restful Is patient on dialysis?: Hemodialysis PT Weekly Progress Note (Notes from 05/19/19 through 05/26/19) PT Weekly Progress Note by Kylie Sanchez PT at 05/25/2019 3:12 PM Author: Kylie Sanchez PT Service: Therapy Author Type: Physical Therapist Filed: 05/25/2019 3:26 PM Date of Service: 05/25/2019 Status: Signed Unix Architect: Kylie Sanchez PT (Physical Therapist) PT Weekly Progress Note Patient Name: Jules Mitchell Patient Birthdate: 1945 PT CURRENT FUNCTIONAL STATUS: PT Current Functional Status: PT Current Functional Status: Mr. Jules Mitchell'nolvia current functional mobility is as follows. TRANSFERS: Sit to and from stand with distant supervision (improved from close supervision). Stand pivot transfer with distant supervision (improved from close supervision). Car transfer with distant supervision and use of rigid leg hospital laboratory technician (improved from minimal assistance). GAIT: Ambulates up to 200 feet with rolling walker and distant supervision (improved from 160 feet with rolling walker and close supervision). Ambulates across uneven surface with rolling walker and close supervision (no change) ELEVATIONS Ascends/descends up to 14 steps with 1 handrail (first 10 at contact guard assistance and remainderat minimal assistance) (improved from 12 steps at 6 inches each with bilateral handrail support andcontact guard assistance). Ascends/descends 6 inch curb step (see above). WHEELCHAIR ASSESSMENT: propels manual wheelchair 88 feet with minimal assistance prior to requiringtotal assistance for all remaining mobility (no change) ?? Standardized Assessment: 2 Minute Walk Test: 6 feet with no assistive device (prior level) and total assistance (no change: to be reassessed). Timed Up and Go: 80 seconds with rolling walker and supervision (improved from 65 seconds with rolling walker and contact guard assistance). ?? He presents with the below listed impairments. He would benefit from skilled intensive inpatient rehabilitation services at this time in order to further improve upon the below listed impairments andprepare for return to home. Factors in Goal Achievement: Facilitating Factors: Improved functional mobility, Improved balance and Support of family or caregiver Barriers: Pain, Strength limitations, Balance deficits, ROM limitations, Diminished endurance, Decreased patient attendance and participation, Decreased patient compliance, Decreased safety awareness, Medical Complications and Decreased patient understanding Date Last Assessed: 05/25/2019 DME Recommendations Common Therapy DME: Other (comment)(ongoing assessment) CARE Score Mario: 6: Independent. Chester provides no assistance with tasks. A device may or may not have been used. 5: Set-up or clean-up assistance. Chester sets up or cleans up, but does not assist with tasks. Chester may have assisted prior to or following the activity. 4: Supervision or touching assistance. Chester provides verbal cues or touching/steadying or contactguard assistance. Assistance may be provided throughout the activity or intermittently. 3: Partial/moderate assistance. Chester does less than half the effort. Chester lifts, holds, or supports trunk or limbs, but provides less than half the effort. 2: Substantial/maximal assistance. Chester does more than half the effort. Chester lifts or holds trunk or limbs, and provides more than half the effort. 1: Dependent. Chester does all of the effort, or the [...] due to medical condition or safety concerns Elementary Education Tutor Goals: Goal Status on Admission Current Status Car Transfer LTG: Independent(Pt to perform car transfer mobility with LRAD and Mod I to demonstrate safe mobility in/out of the car to return to home. ) Car Transfer - CARE Score: 88 (05/12/191452 : Kylie Sanchez PT) Car Transfer - CARE Score: 4 (05/25/19 150) Walk 10 Feet - CARE Score: 88 (05/12/191452 : Kylie Sanchez PT) Walk 10 Feet - CARE Score: 4 (05/25/19 150) Walk 50 Feet with Two Turns LTG: Independent(Pt to ambulate up to 50 feet with LRAD and Mod I in order to demonstrate safe mobility within the home alone throughout the day. ) Walk 50 Feet with Two Turns - CARE Score: 88 (05/12/191452 : Kylie Sanchez PT) Walk 50 Feet with Two Turns - CARE Score: 4 (05/25/19 150) Walk 150 Feet - CARE Score: 88 (05/12/191452 : Kylie Sanchez PT) Walk 150 Feet - CARE Score: 4 (05/25/19 150) Walking 10 Feet on Uneven Surfaces - CARE Score: 88 (05/12/191452 : Kylie Sanchez PT) [id number] Feet on Uneven Surfaces - CARE Score: 4 (05/25/19 150) 1 Step (Curb) - CARE Score: 3 (05/12/191452 : Kylie Sanchez PT) 1 Step (Curb) - CARE Score: 4(05/25/19 150) 4 Steps - CARE Score: 3 (05/12/191452 : Kylie Sanchez PT) 4 Steps - CARE Score: 4 (05/25/19 150) 12 Steps LTG: Independent(Pt to ascend/descend at least 12 steps in order to demonstrate safe mobility in/out of the home (6 steps) with 1 HR and LRAD and Mod I. ) 12 Steps - CARE Score: 88 (05/12/201353 : Kylie Sanchez PT) 12 Steps - CARE Score: 3 (05/25/19 1507) Picking Up Object - CARE Score: 88 (05/12/19 1453 : Kylie Sanchez PT) Picking Up Object - CAREScore: 4 (05/25/19 1507) Wheel 50 Feet with Two Turns - CARE Score: 3 (05/12/19 1453 : Kylie Sanchez PT) Wheel 50 Feet with Two Turns - CARE Score: 3 (05/25/19 1507) Wheel 150 Feet - CARE Score: 2 (05/12/19 145 : Kylie Sanchez PT) Wheel 150 Feet - CARE Score:2 (05/25/19 1507) PT Other Elementary Education Tutor Goals Most Recent Value Other PT Elementary Education Tutor Goals Other Goals - Custodial Elementary Education Tutor 1 Filed on: 05/12/20191458 Other Elementary Education Tutor Goal 1 Pt to perform 2MWT with a distance of at least 40 feet in order to demonstrate improved overall mobility. Filed on: 05/12/20191458 Other Elementary Education Tutor Goal 1 Status Established Filed on: 05/12/20191458 Expected Achievement Date 06/02/19 Filed on: 05/12/2019 145 PT Short Term Goal 1: Focus: Car Transfer Details: Pt to perform car transfer with LRAD and CGA. (Met 05/25/19). Pt to perform car transfer with LRAD and Mod I. Expected Achievement Date: 05/27/2019 Goal Status: Established PT Short Term Goal 2: Focus: Walking Details: Pt to ambulate up to 20 feet with LRAD and Min A. (Met 05/18/19). Pt to ambulate up to 150 feet with LRAD and distant supervision and no verbal cues. Expected Achievement Date: 05/27/2019 Status: Partially Achieved PT Short Term Goal 3: Focus: Steps Details: Pt to ascends/descend at least 6 steps at 6 inches each and 1 HR with Min A. (Met 05/25/19). Pt to ascend/descend at least 6 steps at 6 inches each with 1 HR and supervision. Expected Achievement Date: 05/27/2019 Status: Established PT Short Term Goal 4: Focus: Picking up Object Details: Pt to perform picking up an object with LRAD and CGA (Met 05/18/19). Pt to perform picking up an object with LRAD and Mod I. Expected Achievement Date: 05/27/2019 Goal Status: Partially Achieved PT Short Term Goal 5: Focus: Other Details: Pt to perform TUG. (Met 05/18/19) Pt to perform TUG with a time of less than 55 seconds with LRAD and distant supervision. Expected Achievement Date: 05/27/2019 Goal Status: Partially Achieved KYLIE SANCHEZ, PT 05/25/2019 OT Weekly Progress Note (Notes from 05/19/19 through 05/26/19) OT Weekly Progress Note by Carlos Caba OT at 05/19/2019 9:35 AM Author: Carlos Caba OT Service: Therapy Author Type: Occupational Therapist Filed: 05/19/2019 9:39 AM Date of Service: 05/19/2019 Status: Signed Unix Architect: Carlos Caba OT (Occupational Therapist) Occupational Therapy Weekly Progress Note Patient Name: Jules Mitchell Patient Birthdate: 1945 OT Current Functional Status: Jules Mitchell is completing the following: EATING: with modified independence ORAL HYGIENE:with setup assist/supervision (verbal cues to initiate task) TOILETING:with minimal assistance BATHING:with minimal assistance UPPER BODY DRESSING:with setup assistance LOWER BODY DRESSING:with setup assistance/supervision FOOTWEAR:with setup assist/supervision ROLL RIGHT/LEFT:with supervision SIT TO LYING:with supervision with verbal cues for use of leg hospital laboratory technician LYING TO SIT:with supervision with verbal cues for use of leg hospital laboratory technician SIT TO STAND:with supervision and use of RW CHAIR/BED TO CHAIR TRANSFER:with supervision and use of RW TOILET TRANSFER:with supervision with use of RW Jules Mitchell is demonstrating progress with toileting, dressing, and functional transfers. In addition, Mr. Mitchell has demonstrated improved dynamic balance, improved standing tolerance and improved overall functional endurance/functional reaching. Jules Mitchell continues to present with impaired safety awareness, impaired problem-solving, decreased cognition, impaired endurance, impaired strength, and pain limiting independence with ADLs and functional transfers. Jules Mitchell would benefit from continued intensive OT to address continued barriers for safe return to prior level of function. Facilitating Factors in Goal Achievement: Improved functional mobility, Improved strength, Improvedsafety awareness and Use of compensatory strategies Barriers to Goal Achievement: Balance deficits, Diminished endurance, Strength limitations, Cognitive deficits, Decreased patient understanding, Pain and Decreased safety awareness Date Last Assessed: 05/19/2019 Patient needs assistance with the following activities: Activities of daily living, Sitting balance, Reaching, Positioning, Use of bathroom equipment and Going out in the community CARE Score Mario: 6: Independent. Chester provides no assistance with tasks. A device may or may not have been used. 5: Set-up or clean-up assistance. Chester sets up or cleans up, but does not assist with tasks. Chester may have assisted prior to or following the activity. 4: Supervision or touching assistance. Chester provides verbal cues or touching/steadying or contactguard assistance. Assistance may be provided throughout the activity or intermittently. 3: Partial/moderate assistance. Chester does less than half the effort. Chester lifts, holds, or supports trunk or limbs, but provides less than half the effort. 2: Substantial/maximal assistance. Chester does more than half the effort. Chester lifts or holds trunk or limbs, and provides more than half the effort. 1: Dependent. Chester does all of the effort, or the [...] due to medical condition or safety concerns Elementary Education Tutor Goals: Goal Status on Admission Current Status Eating LTG: Independent Eating - CARE Score: 6 (05/12/19 1141 : Carlos Caba OT) Eating - CARE Score: 6 (05/19/19932) Oral Hygiene LTG: Independent Oral Hygiene - CARE Score: 10 (05/12/19 1141 : Carlos Caba OT) Oral Hygiene - CARE Score: 5 (05/19/19932) Toileting Hygiene LTG: Independent Toileting Hygiene - CARE Score: 3 (05/12/19 1141 : Carlos Caba OT) Toileting Hygiene - CARE Score: 3 (05/19/19932) Shower/Bathe Self LTG: Supervision or touching assistance Shower/Bathe Self - CARE Score: 3 (05/12/19 114 : Carlos Caba OT) Shower/Bathe Self - CARE Score: 3 (05/19/19932) Upper Body Dressing LTG: Independent Upper Body Dressing - CARE Score: 5 (05/12/19 114 : Carlos Caba OT) Upper Body Dressing - CARE Score: 5 (05/19/19932) Lower Body Dressing LTG: Supervision or touching assistance Lower Body Dressing - CARE Score: 2 (05/12/19 114 : Carlos Caba OT) Lower Body Dressing - CARE Score: 4 (05/19/19932) Putting On/Taking Off Footwear - CARE Score: 3 (05/12/19 114 : Carlos Caba OT) Putting On/Taking Off Footwear - CARE Score: 4 (05/19/19932) Roll Left and Right - CARE Score: 3 (05/12/191140 : Carlos Caba OT) Roll Left and Right - CAREScore: 4 (05/19/19932) Sit to Lying - CARE Score: 3 (05/12/19 114 : Carlos Caba OT) Sit to Lying - CARE Score: 4 (05/19/19932) Lying to Sitting on Side of Bed - CARE Score: 3 (05/12/19 114 : Carlos Caba OT) Lying to Sitting on Side of Bed - CARE Score: 4 (05/19/19932) Sit to Stand - CARE Score: 3 (05/12/19 114 : Carlos Caba OT) Sit to Stand - CARE Score: 4 (05/19/19932) Chair/Uhg-xx-Ipnuw Transfer LTG: Independent Chair/Dpz-fu-Efplh Transfer - CARE Score: 3 (05/12/19 114 : Carlos Caba OT) Chair/Ave-fp-Bpdwc Transfer - CARE Score: 4 (05/19/19932) Toilet Transfer LTG: Independent Toilet Transfer - CARE Score: 3 (05/12/19 114 : Carlos Caba OT) Toilet Transfer - CARE Score: 4 (05/19/19 0933) OT Short Term Goal 1: Focus: Toileting Hygiene Details: Pt will complete toileting with minimal assistance using AE, AD as needed: ACHIEVED Pt will complete toileting with SBA using AE, AD as needed Expected Achievement Date: 05/26/2019 Goal Status: Established OT Short Term Goal 2: Focus: Shower/Bathe Details: Pt will complete bathing with contact guard assistance using shower chair/AE as needed Expected Achievement Date: 05/26/2019 Goal Status: Not Achieved OT Short Term Goal 3: Focus: Upper Body Dressing Details: Pt will complete UB dressing with modified independence Expected Achievement Date: 05/26/2019 Goal Status: Not Achieved OT Short Term Goal 4: Focus: Lower Body Dressing Details: Pt will complete LB dressing with minimal assistance using AE, AD as needed: ACHIEVED Pt will complete LB dressing with SBA using AE, AD as needed: ACHIEVED Pt will complete LB dressing with modified independence using AE, AD as needed Expected Achievement Date: 05/26/2019 Goal Status: Established OT Short Term Goal 5: Focus: Chair/Bed Transfer Details: Pt will complete bed/chair transfer with CGA using assistive device as needed: ACHIEVED Pt will complete bed/chair transfer with modified independence using AD as needed Expected Achievement Date: 05/26/2019 Goal Status: Not Achieved OT Short Term Goal 6: Focus: Toilet Transfer Details: Pt will complete toilet transfer with CGA using AD as needed: ACHIEVED Pt will complete toilet transfer with modified independence using AD, DME as needed Expected Achievement Date: 05/26/2019 Goal Status: Established CARLOS CABA OT 05/19/2019 [facility] Weekly Progress Note (Notes from 05/19/19 through 05/26/19) [facility] Weekly Progress Note by Radha Easley at 05/25/2019 3:21 PM Author: Radha Easley Service: Therapy Author Type: Supervised Student Filed: 05/25/2019 3:24 PM Date of Service: 05/25/2019 Status: Signed Unix Architect: Radha Easley (Supervised Student ) Cosigner: Paz Linn CCC-[facility] at 05/25/2019 3:42 PM Speech Language Pathologist Weekly Progress Note Patient Name: Jules Mitchell Patient Birthdate: 1945 [facility] Current Functional Status: Mr. Vicente's current functional status is as follows: DIET: Regular with thin liquids. ??No dysphagia reported or suspected upon admission. ??Pt. Is edentulous and does not have dentures. ??Patient denies any difficulty with swallowing. Patient reports he is able to 'gum' any food he desires to eat without restrictions. Pt. Took all his pills at one time with water with no difficulty COMPREHENSION: Supervision with basic daily needs - He benefited from repetition and slowed speech rate and understood statements regarding basic, routine issues EXPRESSION: Minimal assistance for basic daily naming, word retrieval deficits, fair speech intelligibility with speech intelligibility being impaired due to fast rate and endentulous SOCIAL INTERACTION: Supervision - additional prompts for increased engagement, participation, eye contact PROBLEM SOLVING: Minimal assistance - Patient requires prompting or redirection to problem solve appropriately some of the time MEMORY: Minimal assistance - Patient presents with cognitive deficits in areas of recall and orientation requiring min cues. PROGRESS: Patient with improved basic attention and and simple problem solving improving from moderate assistance to min assistance. These impairments limit ability to participate in functional communication and daily routines safely and independently ??Pt would benefit from 45-90 minutes daily in individualized and/or group setting, 5 days/week focusing on increased safety and independence. Plan of care to include compe nsatory strategy retraining, cognitive retraining, and patient/family education. Facilitating Factors in Goal Achievement: Support of other(s) and Progress to date Barriers to Goal Achievement: Communication deficits and Other (comment) (decreased memory) Date Last Assessed: 05/25/2019 Elementary Education Tutor Goals: Goal Current Progress towards Goal [facility] Custodial Goal 1: Expression Level of Assistance to Meet Custodial Goal 1: Standby (less than 10%) [facility] Custodial Goal 1 Details: Client will be 90% intelligible in conversation with an unfamiliar listener to improve speech intelligibility at home and in the community. [facility] Custodial Goal 1 Expected Achievement Date: 05/26/19 [facility] Custodial Goal 2: Additional Cognition Level of Assistance to Meet Custodial Goal 2: Standby (less than 10%) [facility] Elementary Education Tutor Goal 2 Details: Patient will improve cognitive linguistic skills to function with Lisa at home and in the community. [facility] Custodial Goal 2 Expected Achievement Date: 05/26/19 Additional Goal Status: N/A [facility] Short Term Goal 1: Focus: Expression Level of Assistance to Meet Short Term Goal: Min assist (10-24%) Details: Client will utilize speech intelligibility strategies produce words in sentences with 90%%acc. Mod I, with consistency to improve speech intelligibility for daily tasks. Expected Achievement Date: 06/01/2019 Goal Status: Not Achieved [facility] Short Term Goal 2: Focus: Additional Cognition Level of Assistance to Meet Short Term Goal: Standby (less than 10%) Details: Pt. Will respond to orientation log question with a score of of 25/30. Expected Achievement Date: 06/01/2019 Goal Status: Not Achieved [facility] Short Term Goal 3: Focus: Additional Cognition Level of Assistance to Meet Short Term Goal: Standby (less than 10%) Details: Patient will recall 12 items in a concrete category in 60'' Jade., with consistency, to improve verbal fluency and thought organization for daily activities. Expected Achievement Date: 06/01/2019 Goal Status: Not Achieved [facility] Short Term Goal 4: Focus: Additional Cognition Level of Assistance to Meet Short Term Goal: Standby (less than 10%) Details: Patient will complete basic attention to detail tasks with 85% acc. Mod I, to improve attention for daily activities Expected Achievement Date: 06/01/2019 Goal Status: Not Achieved [facility] Short Term Goal 5: Focus: Memory Level of Assistance to Meet Short Term Goal: Min assist (10-24%) Details: Patient will utilize memory strategies to perform delayed recall tasks (5-15 minute delay)with 80% acc. Mod I, to improve memory for daily tasks. Expected Achievement Date: 06/01/2019 Goal Status: Not Achieved [facility] Short Term Goal 6: Focus: Additional Cognition Level of Assistance to Meet Short Term Goal: Standby (less than 10%) Details: Patient will complete functional problem solving tasks with 85% acc. to improve organization, reasoning, and planning for daily activities. Expected Achievement Date: 06/01/2019 Goal Status: Not Achieved RADHA EASLEY 05/25/2019 Respiratory Team Conference: Nutrition Team Conference: Dietary Orders (From admission, onward) Start Ordered 05/13/19 1700 Diet message 3 times daily with meals Comments: Cut meats End/Expires: Until Specified 05/13/19 1352 05/13/19 1352 Adult Diet Therapeutic Diet; Renal with dialysis, Carb Controlled; 5 Carb/75gm/meal (2000 calories); Regular Texture (7 Regular); All Liquids (0 Thin) Diet effective now End/Expires: Until Specified Question Answer Comment Diet Type: Therapeutic Diet Therapeutic Diet: Renal with dialysis Therapeutic Diet: Carb Controlled Carbohydrate Controlled: 5 Carb/75gm/meal (2000 calories) Diet Texture: Regular Texture (7 Regular) Liquid Consistency All Liquids (0 Thin) Place order in third republican system. Done 05/13/19 1352 Height: 5' 10 (177.8 cm) Admit Weight: 136 lb 1.6 oz (61.7 kg) Current Weight: 136 lb (61.7 kg) Body mass index is 19.51 kg/m??. Calorie Count: Nutrition Intake: Oral Nutrition Risk: Patient not at nutrition risk Nutrition Recommendations: continue same; offering snacks and encouraging po Nutrition Update: 50-100% po intake of renal, carb controlled diet; weight is stable Wound: Wound Rx: None Medical: new dialysis. Severe L hip arthritis. Cognitive/speech: Cognition at baseline. No barriers. Physical: No barriers. D/C plan/needs: ADD 05/28. Home with Walker. Cosigned by Florencia Moulton MD at 05/26/2019 10:35 PM GLOVE TAGGER Associated attestation - Florencia Moulton MD - 05/26/2019 11:35 PM EST A team conference was held on 05/26/2019 and included members of the multidisciplinary team identified in the attendance section of this note. Issues related to Mr. Mitchell's status include; Encephalopathy with new renal failure and fluid overload-baseline mentation Impaired gait with hip pain improved OA left hip with pain-ambulating well, follow up as OP Mr. Frankss progress toward rehabilitation goals, impediments to attaining these goals, and associated revisions to the treatment plans and goals were discussed by the team. Details of this multidisciplinary process are included below. Issues of particular significance at this time regarding Mr. Frankss progress towards rehabilitation goals and treatment plan include: Follow up DI RF HD arrange as OP Dr. Donato As discussed during this team conference, I concur with the decisions set forth by the members of the multidisciplinary team. Mr. Mitchell continues to require frequent physician visits and 24 hours per day acute rehabilitation nursing care in order to meet medical needs and progress toward the achievement of the rehabilitation goals. CANDI 05/28 FLORENCIA MOULTON MD 05/26/2019 10:31 PM * PT Treatment Note - Kylie Sanchez, PT - 05/26/2019 9:00 AM CST PT Treatment Patient Name: Jules Mitchell Patient Birthdate: 1945 Patient Subjective Report - Pt seated in w/c upon entry. Ready for therapy. Pain Assessment Pain Context: Therapy Assessment Prior to Treatment (05/26/19899) Pain Assessment: None/denies pain (05/26/19899) Surface: Even surface and Indoor Assistive Device: RW Ambulation Level of Assistance: Distant Supervision Distance (feet): 231 Gait Analysis: 1 x 231', 1 x 194' with RW and distant supervision over even surfaces and RW for UE support. Pt requires increased time to complete and decreased foot clearance (especially noted on L LE). Seated rest break upon completion. Transfer to 1: Stand Transfer from 1: Wheelchair Technique 1: Sit to stand and Stand to sit Transfer Level of Assistance 1: Modified Independent Trials/Comments1: Pt is able to perform sit to stand mobility with increased time to complete and Mod I using UE support from armrests. Able to demonstrate with safe mobility. Therapeutic Activities and Neuromuscular Re-education: STANDING BALANCE: Pt performs the following standing balance activities in order to improve confidence in standing independently as well as improving his incorporation of balance strategies. Performs without use of RWfor UE support: - static standing with eyes closed and CGA for safety x 30 seconds (noted increased anterior lean as time progressed) - dynamic reaching outside DEONNA with no UE support (up to 6 inches forward) with CGA and increased time to complete) with CGA and increased time to complete. Seated rest break upon completion. Were respiratory Interventions provided?: No Special Test and Outcome Measures: 2 Minute walk test 05/26/19899 2 Minute Walk Test Performed 2 Minute Walk Test? Yes Distance Walked (Feet) 120 Feet (With RW and distant supervision) PT Treatment Outcomes:: Patient is progressing toward STG, Patient tolerated treatment well, Safetydevice reapplied, Improved ambulation performance, Improved balance and coordination, Compensatory strategies effectively used, Improved safety awareness, Improved transfer ability noted and Improving overall [...] Evaluation and Follow-up Pain Reassessment: No pain (05/26/19942) Nursing notified of patient's pain assessment: Not indicated - pain score 2 or less (05/26/19942) Therapy Minutes Individual Concurrent Co-Treat Time In : 0900 Time Out: 944 Total Time with Patient (Min): 45 min Missed Minutes : 0 KYLIE SANCHEZ, PT 05/26/2019 * [facility] Treatment Note - Radha Easley - 05/26/2019 8:15 AM CST Speech Language Pathologist Treatment Patient Name: Jules Mitchell Patient Birthdate: 1945 Patient Subjective Report - Patient upright in wheelchair in room. Pain Assessment Pain Context: Therapy Assessment Prior to Treatment (05/26/19814) Pain Score: 0 - No pain (05/26/19814) Cognitive Communication: Functional problem solving, Orientation, Compensatory techniques for cognition, Short-term memory, Verbal organization, Basic attention, Speed of processing and Verbal problem solving Dysarthria: Articulation, Speech intelligibility, Conversational speech and Compensatory techniquesfor dysarthria Patient/Caregiver Training: Completed with patient, Cognitive strategies, Cognitive Communication Disorder, Communication strategies, Dysarthria and Therapy goals and treatment plan ST Narrative:: Patient scored a 21/30 on the orientation log with orientation to city, kind of place, name of hospital, reason for hospital stay, and deficits and requiring mod cues for year and day of the week and max cues for month, date, and clock time. Patient responded to verbal problem solving prompts with 88% accuracy with min to mod cues. He was educated on the functional use of problem solving skills at home and verbalized understanding. Patient identified an item that did not belong in a category of 5 items presented verbally with 85% accuracy and mod cues. He generated 6 items in a60 second divergent naming task (things you find on the farm) all within the first 30 seconds. He continued to present with some dysarthric speech impacting his intelligibility which was 85% with mincues within structured tasks and 70% in open ended conversation without context. Overall, patient was pleasant and cooperative. He continues to display decreased orientation and divergent naming skills. He generated items at a faster pace in this session, however did not continueafter naming 6 items. He demonstrated difficulty with independent problem solving but generated appropriate solutions with min to mod cues. His dysarthric speech continued to impact his intelligibility within therapy tasks and open-ended conversation. Continue ST. Patient remained up sitting in chair at end of session with pelvic positioning belt on, chair alarmin place, call light and phone within reach. ST Session Outcomes: Tolerated treatment well, Strategies effectively used, Patient/family education progressing, Progressing toward STGs and Moderate cues during session ST Summary Plan of Care: Continue with current plan of care Pain Evaluation and Follow-up Pain Reassessment: No pain (05/26/19 0900) Therapy Minutes Individual Concurrent Co-Treat Time In : 0815 Time Out: 0900 Total Time with Patient (Min): 45 min Missed Minutes : 0 RADHA EASLEY 05/26/2019 Cosigned by Paz Linn CCC-[facility] at 05/26/2019 1:36 PM GLOVE TAGGER * Plan of Care - Rosalind Snyder RN - 05/25/2019 11:35 PM CST Problem: Infection Goal: Absence of infection and [...] facility with appropriate resources Outcome: Progressing Goal: manager supply will develop a plan to 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 burden and 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 in role Outcome: Progressing Problem: Knowledge Deficit Goal: Patient/family/caregiver [...] is Maintained or Improved Outcome: Progressing Problem: Case Management Discharge Goals Goal: Identify patient's discharge goals Outcome: Progressing Goal: Coordinate Safe Discharge Plan Outcome: Progressing Goal: Work with the treatment team to assess caregiver capability Outcome: Progressing Problem: Pain Goal: Patient's pain/discomfort is manageable Outcome: Progressing * [facility] Weekly Progress Note - Radha Easley - 05/25/2019 3:21 PM CST Speech Language Pathologist Weekly Progress Note Patient Name: Jules Mitchell Patient Birthdate: 1945 [facility] Current Functional Status: Mr. Vicente's current functional status is as follows: DIET: Regular with thin liquids. ??No dysphagia reported or suspected upon admission. ??Pt. Is edentulous and does not have dentures. ??Patient denies any difficulty with swallowing. Patient reports he is able to 'gum' any food he desires to eat without restrictions. Pt. Took all his pills at one time with water with no difficulty COMPREHENSION: Supervision with basic daily needs - He benefited from repetition and slowed speech rate and understood statements regarding basic, routine issues EXPRESSION: Minimal assistance for basic daily naming, word retrieval deficits, fair speech intelligibility with speech intelligibility being impaired due to fast rate and endentulous SOCIAL INTERACTION: Supervision - additional prompts for increased engagement, participation, eye contact PROBLEM SOLVING: Minimal assistance - Patient requires prompting or redirection to problem solve appropriately some of the time MEMORY: Minimal assistance - Patient presents with cognitive deficits in areas of recall and orientation requiring min cues. PROGRESS: Patient with improved basic attention and and simple problem solving improving from moderate assistance to min assistance. These impairments limit ability to participate in functional communication and daily routines safely and independently ??Pt would benefit from 45-90 minutes daily in individualized and/or group setting, 5 days/week focusing on increased safety and independence. Plan of care to include compe nsatory strategy retraining, cognitive retraining, and patient/family education. Facilitating Factors in Goal Achievement: Support of other(s) and Progress to date Barriers to Goal Achievement: Communication deficits and Other (comment) (decreased memory) Date Last Assessed: 05/25/2019 Custodial Goals: Goal Current Progress towards Goal [facility] Elementary Education Tutor Goal 1: Expression Level of Assistance to Meet Elementary Education Tutor Goal 1: Standby (less than 10%) [facility] Elementary Education Tutor Goal 1 Details: Client will be 90% intelligible in conversation with an unfamiliar listener to improve speech intelligibility at home and in the community. [facility] Elementary Education Tutor Goal 1 Expected Achievement Date: 05/26/19 [facility] Elementary Education Tutor Goal 2: Additional Cognition Level of Assistance to Meet Custodial Goal 2: Standby (less than 10%) [facility] Custodial Goal 2 Details: Patient will improve cognitive linguistic skills to function with Lisa at home and in the community. [facility] Custodial Goal 2 Expected Achievement Date: 05/26/19 Additional Goal Status: N/A [facility] Short Term Goal 1: Focus: Expression Level of Assistance to Meet Short Term Goal: Min assist (10-24%) Details: Client will utilize speech intelligibility strategies produce words in sentences with 90%%acc. Mod I, with consistency to improve speech intelligibility for daily tasks. Expected Achievement Date: 06/01/2019 Goal Status: Not Achieved [facility] Short Term Goal 2: Focus: Additional Cognition Level of Assistance to Meet Short Term Goal: Standby (less than 10%) Details: Pt. Will respond to orientation log question with a score of of 25/30. Expected Achievement Date: 06/01/2019 Goal Status: Not Achieved [facility] Short Term Goal 3: Focus: Additional Cognition Level of Assistance to Meet Short Term Goal: Standby (less than 10%) Details: Patient will recall 12 items in a concrete category in 60'' Jade., with consistency, to improve verbal fluency and thought organization for daily activities. Expected Achievement Date: 06/01/2019 Goal Status: Not Achieved [facility] Short Term Goal 4: Focus: Additional Cognition Level of Assistance to Meet Short Term Goal: Standby (less than 10%) Details: Patient will complete basic attention to detail tasks with 85% acc. Mod I, to improve attention for daily activities Expected Achievement Date: 06/01/2019 Goal Status: Not Achieved [facility] Short Term Goal 5: Focus: Memory Level of Assistance to Meet Short Term Goal: Min assist (10-24%) Details: Patient will utilize memory strategies to perform delayed recall tasks (5-15 minute delay)with 80% acc. Mod I, to improve memory for daily tasks. Expected Achievement Date: 06/01/2019 Goal Status: Not Achieved [facility] Short Term Goal 6: Focus: Additional Cognition Level of Assistance to Meet Short Term Goal: Standby (less than 10%) Details: Patient will complete functional problem solving tasks with 85% acc. to improve organization, reasoning, and planning for daily activities. Expected Achievement Date: 06/01/2019 Goal Status: Not Achieved RADHA EASLEY 05/25/2019 Cosigned by Paz Linn CCC-[facility] at 05/25/2019 3:42 PM GLOVE TAGGER * PT Weekly Progress Note - Kylie Sanchez, PT - 05/25/2019 3:12 PM GLOVE TAGGER PT Weekly Progress Note Patient Name: Jules Mitchell Patient Birthdate: 1945 PT CURRENT FUNCTIONAL STATUS: PT Current Functional Status: PT Current Functional Status: Mr. Jules Mitchell's current functional mobility is as follows. TRANSFERS: Sit to and from stand with distant supervision (improved from close supervision). Stand pivot transfer with distant supervision (improved from close supervision). Car transfer with distant supervision and use of rigid leg hospital laboratory technician (improved from minimal assistance). GAIT: Ambulates up to 200 feet with rolling walker and distant supervision (improved from 160 feet with rolling walker and close supervision). Ambulates across uneven surface with rolling walker and close supervision (no change) ELEVATIONS Ascends/descends up to 14 steps with 1 handrail (first 10 at contact guard assistance and remainderat minimal assistance) (improved from 12 steps at 6 inches each with bilateral handrail support andcontact guard assistance). Ascends/descends 6 inch curb step (see above). WHEELCHAIR ASSESSMENT: propels manual wheelchair 88 feet with minimal assistance prior to requiringtotal assistance for all remaining mobility (no change) ?? Standardized Assessment: 2 Minute Walk Test: 6 feet with no assistive device (prior level) and total assistance (no change: to be reassessed). Timed Up and Go: 80 seconds with rolling walker and supervision (improved from 65 seconds with rolling walker and contact guard assistance). ?? He presents with the below listed impairments. He would benefit from skilled intensive inpatient rehabilitation services at this time in order to further improve upon the below listed impairments andprepare for return to home. Factors in Goal Achievement: Facilitating Factors: Improved functional mobility, Improved balance and Support of family or caregiver Barriers: Pain, Strength limitations, Balance deficits, ROM limitations, Diminished endurance, Decreased patient attendance and participation, Decreased patient compliance, Decreased safety awareness, Medical Complications and Decreased patient understanding Date Last Assessed: 05/25/2019 DME Recommendations Common Therapy DME: Other (comment)(ongoing assessment) CARE Score Mario: 6: Independent. Chester provides no assistance with tasks. A device may or may not have been used. 5: Set-up or clean-up assistance. Chester sets up or cleans up, but does not assist with tasks. Chester may have assisted prior to or following the activity. 4: Supervision or touching assistance. Chester provides verbal cues or touching/steadying or contactguard assistance. Assistance may be provided throughout the activity or intermittently. 3: Partial/moderate assistance. Chester does less than half the effort. Chester lifts, holds, or supports trunk or limbs, but provides less than half the effort. 2: Substantial/maximal assistance. [place] does more than half the effort. [place] lifts or holds trunk or limbs, and provides more than half the effort. 1: Dependent. [place] does all of the effort, or the [...] due to medical condition or safety concerns Custodial Goals: Goal Status on Admission Current Status Car Transfer LTG: Independent(Pt to perform car transfer mobility with LRAD and Mod I to demonstrate safe mobility in/out of the car to return to home. ) Car Transfer - CARE Score: 88 (05/12/19 2093 : Kylie Sanchez, PT) Car Transfer - CARE Score: 4 (05/25/19 1507) Walk 10 Feet - CARE Score: 88 (05/12/191452 : Kylie Sanchez PT) Walk 10 Feet - CARE Score: 4 (05/25/191506) Walk 50 Feet with Two Turns LTG: Independent(Pt to ambulate up to 50 feet with LRAD and Mod I in order to demonstrate safe mobility within the home alone throughout the day. ) Walk 50 Feet with Two Turns - CARE Score: 88 (05/12/191452 : Kylie Sanchez PT) Walk 50 Feet with Two Turns - CARE Score: 4 (05/25/191506) Walk 150 Feet - CARE Score: 88 (05/12/191452 : Kylie Sanchez PT) Walk 150 Feet - CARE Score: 4 (05/25/191506) Walking 10 Feet on Uneven Surfaces - CARE Score: 88 (05/12/191452 : Kylie Sanchez PT) [id number] Feet on Uneven Surfaces - CARE Score: 4 (05/25/191506) 1 Step (Curb) - CARE Score: 3 (05/12/191452 : Kylie Sanchez PT) 1 Step (Curb) - CARE Score: 4(05/25/191506) 4 Steps - CARE Score: 3 (05/12/191452 : Kylie Sanchez PT) 4 Steps - CARE Score: 4 (05/25/191506) 12 Steps LTG: Independent(Pt to ascend/descend at least 12 steps in order to demonstrate safe mobility in/out of the home (6 steps) with 1 HR and LRAD and Mod I. ) 12 Steps - CARE Score: 88 ( : Kylie Sanchez PT) 12 Steps - CARE Score: 3 (05/25/191506) Picking Up Object - CARE Score: 88 (05/12/191452 : Kylie Sanchez PT) Picking Up Object - CAREScore: 4 (05/25/191506) Wheel 50 Feet with Two Turns - CARE Score: 3 (05/12/191452 : Kylie Sanchez PT) Wheel 50 Feet with Two Turns - CARE Score: 3 (05/25/19 150) Wheel 150 Feet - CARE Score: 2 (05/12/191452 : Kylie Sanchez, PT) Wheel 150 Feet - CARE Score:2 (05/25/19 1507) PT Other Custodial Goals Most Recent Value Other PT Elementary Education Tutor Goals Other Goals - Elementary Education Tutor Elementary Education Tutor 1 Filed on: 05/12/20191458 Other Custodial Goal 1 Pt to perform 2MWT with a distance of at least 40 feet in order to demonstrate improved overall mobility. Filed on: 05/12/20191458 Other Elementary Education Tutor Goal 1 Status Established Filed on: 05/12/20191458 Expected Achievement Date 06/02/19 Filed on: 05/12/2019 145 PT Short Term Goal 1: Focus: Car Transfer Details: Pt to perform car transfer with LRAD and CGA. (Met 05/25/19). Pt to perform car transfer with LRAD and Mod I. Expected Achievement Date: 05/27/2019 Goal Status: Established PT Short Term Goal 2: Focus: Walking Details: Pt to ambulate up to 20 feet with LRAD and Min A. (Met 05/18/19). Pt to ambulate up to 150 feet with LRAD and distant supervision and no verbal cues. Expected Achievement Date: 05/27/2019 Status: Partially Achieved PT Short Term Goal 3: Focus: Steps Details: Pt to ascends/descend at least 6 steps at 6 inches each and 1 HR with Min A. (Met 05/25/19). Pt to ascend/descend at least 6 steps at 6 inches each with 1 HR and supervision. Expected Achievement Date: 05/27/2019 Status: Established PT Short Term Goal 4: Focus: Picking up Object Details: Pt to perform picking up an object with LRAD and CGA (Met 05/18/19). Pt to perform picking up an object with LRAD and Mod I. Expected Achievement Date: 05/27/2019 Goal Status: Partially Achieved PT Short Term Goal 5: Focus: Other Details: Pt to perform TUG. (Met 05/18/19) Pt to perform TUG with a time of less than 55 seconds with LRAD and distant supervision. Expected Achievement Date: 05/27/2019 Goal Status: Partially Achieved KYLIE SANCHEZ, PT 05/25/2019 * Plan of Care - Asya Lucio RN - 05/25/2019 2:35 PM CST Up in chair and encouraged frequent position changes * PT Treatment Note - Kylie Sanchez, PT - 05/25/2019 10:34 AM CST PT Treatment Patient Name: Jules Mitchell Patient Birthdate: 1945 Patient Subjective Report - Pt ready for therapy. Pt's nephew (Jarrett) present for family training this date. Pain Assessment Pain Context: Therapy Assessment Prior to Treatment (05/25/19 1034) Pain Assessment: None/denies pain (05/25/19 103) Overall Cognitive Status: Within Functional Limits Surface: Even surface and Indoor Assistive Device: RW Ambulation Level of Assistance: Distant Supervision Distance (feet): 150 Gait Analysis: 1 x 150', 1 x 200' with RW and distant supervision over even surfaces. Pt demonstrates increased trunk flexion, decreased joao, decreased foot clearance, and decreased stance time on L LE. Pt requires seated rest break for increased time upon completion of each set. Pt demonstrates no LOB throughout, however requires greatly increased time to complete. Stair Analysis: Pt indicates increased fatigue (at completion of session). With family present, therapist simulated pt mobility up/down the steps with discussion of safe guarding technique and sequencing. Pt and nephew indicate understanding. Number of Steps: 0 Transfer to 1: Stand Transfer from 1: Wheelchair Technique 1: Stand to sit and Sit to stand Transfer Level of Assistance 1: Distant Supervision Trials/Comments1: Increased time to complete. Use of RW for UE support. Transfer to 2: Car Transfer from 2: Wheelchair Technique 2: Stand pivot Transfer Level of Assistance 2: Distant Supervision Trials/Comments 2: With use of rigid leg hospital laboratory technician for L LE and greatly increased time to complete. Seated rest break upon completion of transfer each direction. Seated Position: Pt performed 1 x 15 minutes of seated B LE and UE exercise on Vizy bike at level1 resistance for improved L hip mobility and tolerance to exercise. Pt demonstrates improved joao and pacing. Emphasis on carry-over to mobility when ambulating. Pt indicates understanding. Therapeutic Activities and Neuromuscular Re-education: STANDING BALANCE: 2 x 25 reps of reaching outside DEONNA with intermittent UE support from RW and standing on compliant Airex pad for balance while tossing to target. Were respiratory Interventions provided?: No PT Treatment Outcomes:: Patient is progressing toward STG, Patient tolerated treatment well, Improved ambulation performance, Improved balance and coordination, Improved transfer ability noted, Improved safety awareness and Improving overall functional endurance noted Pain Evaluation and Follow-up Pain Reassessment: No pain (05/25/19 1202) Nursing notified of patient's pain assessment: Not indicated - pain score 2 or less (05/25/19 1202) Therapy Minutes Individual Concurrent Co-Treat Time In : 1034 Time Out: 1207 Total Time with Patient (Min): 93 min Missed Minutes : 3 KYLIE SANCHEZ PT 05/25/2019 * OT Treatment Note - Carlos Caba OT - 05/25/2019 9:45 AM CST Occupational Therapy Treatment Patient Name: Jules Mitchell Patient Birthdate: 1945 Pain Assessment Pain Context: Therapy Assessment Prior to Treatment (05/25/19947) Pain Assessment: None/denies pain (05/25/19947) ADL Status: Bathing Comments: Pt offered shower however pt declines. Pt and family educated on DME recommendations (tub transfer bench) and alternative strategies such as sponge bathing to maximize safety/independence with self-care. Toileting: Close Supervision Toileting Where Assessed: Toilet Toilet Comments: Pt participates in toileting simulation training with pt's family present. Pt and pt's family educated on current level of assist needed for safety - supervision for balance and verbal cues for safe use of RW. Pt able to complete transfer with close supervision. Pt and family's educated on energy conservation/task modification with use of DME such as BSC to promote independence upon discharge. Toilet Transfer: Close Supervision Toilet Transfer to: Standard toilet Toilet Transfer From: Bed Toilet Transfer Technique: Ambulatory Toilet Transfers Comments: Pt able to complete with close supervision and use of RW. Pt requires minimal verbal cues for safe use of walker - demonstrating improved carryover. Pt's family present andeducated on importance of verbal cues provided for safe use of walker and SBA for impaired balance. Tub Transfer: Minimal Assistance Tub Transfer To: Transfer tub bench Tub Transfer From: Stand Tub Transfer Technique: Ambulatory Tub Transfers Comments: Pt and family educated on strategies to increase independence with tub transfers upon discharge. Pt able to complete with minimal assistance to elevate LE's. Pt's family reports ability to provide level of assist upon discharge. Pt and pt's family educated on DME recommendation and provided handout. Bed, Chair, Wheelchair Transfer: Close Supervision Bed/Chair Transfer to: Wheelchair Bed/Chair Transfer from: Stand Bed/Chair Transfer Technique: Sit to stand and Stand to sit Assistive Devices Used: Walker Bed/Chair Transfer Comments: Pt's family present and participates in training to promote increased independence upon discharge with bed/chair transfers. Pt able to complete with supervision. Pt's family demonstrates ability to provide level of assist needed/verbal cues for safety. Bed Mobility: Performed on bed Bed Mobility Comment: Pt participates in bed mobility training - focusing on supine <> sit onflat bed without bedrails to simulate home setting and prepare for discharge. Pt's family present and educated on strategies to assist pt safely. Pt requires minimal assistance for sit > supine for effective use of leg hospital laboratory technician to elevate LLE. Pt able to transfer from supine > EOB with supervision and use of leg hospital laboratory technician. Treatment, Outcomes and Plan: OT Narrative:: Pt participates well in therapy and family training this date. Pt with PT at conclusion of session with chair alarm fastened/activated. OT Treatment Outcomes:: Safety device reapplied and Patient tolerated treatment well OT Summary Plan of Care: Continue with current plan of care Pain Evaluation and Follow-up Pain Reassessment: No pain (05/25/19 1029) Nursing notified of patient's pain assessment: Not indicated - pain score 2 or less (05/25/19 1029) Therapy Minutes Individual Concurrent Co-Treat Time In : 0945 Time Out: 1030 Total Time with Patient (Min): 45 min Missed Minutes : 0 CARLOS CABA OT 05/25/2019 * [facility]OR[facility] Treatment Note - Radha Easley - 05/25/2019 8:10 AM CST Speech Language Pathologist Treatment Patient Name: Jules Mitchell Patient Birthdate: 1945 Patient Subjective Report - Patient upright in room in wheelchair . Pain Assessment Pain Context: Therapy Assessment Prior to Treatment (05/25/19809) Pain Score: 0 - No pain (05/25/19809) Cognitive Communication: Functional problem solving, Initiation, Orientation, Pragmatics and socialinteraction, Verbal organization, Short-term memory, Basic attention, Organization, Speed of processing and Verbal problem solving Dysarthria: Articulation, Compensatory techniques for dysarthria, Conversational speech, Sentences and Speech intelligibility Patient/Caregiver Training: Cognitive Communication Disorder, Cognitive strategies, Communication strategies, Completed with patient, Therapy goals and treatment plan and Dysarthria ST Narrative:: Patient completed 10 second delayed recall task on iPad with visual and auditory distractions with 60% accuracy. He benefited from increased processing time and mod cues and presented increased difficulty with auditory distractions compared to verbal. He was educated on how to minimize auditory distractions (television, radio) as a compensatory strategy to aid in attention to tasksand conversations and patient verbalized understanding but likely requires reinforcement for application. He unscrambled sentences provided verbally with 90% accuracy and mod cues demonstrating continued 85% intelligibility within sentences in context. In conversational open-ended speech he was 65%intelligible, consistent from the previous session. His conversational partner benefits from context in conversation to increase intelligibility. He generated 5 items in a 60 second divergent naming task with mod cues, which was consistent with the previous session however he displayed increased attention by providing items throughout the full 60 seconds. Overall, patient was cooperative and pleasant. He continued to display decreased intelligibility inopen-ended speech and decreased memory with delayed recall. Auditory distractions caused additionaldifficulty for recall and should be limited to increase basic attention and memory. Divergent naming remained an area of difficulty and he benefited from mod cues for the task, however he remained attentive for the full 60 seconds. Patient remained up sitting in chair at end of session with pelvic positioning belt on, chair alarmin place, call light and phone within reach. ST Session Outcomes: Tolerated treatment well, Patient/family education progressing, Strategies effectively used, Moderate cues during session and Progressing toward STGs ST Summary Plan of Care: Continue with current plan of care Pain Evaluation and Follow-up Pain Reassessment: No pain (05/25/19 0855) Therapy Minutes Individual Concurrent Co-Treat Time In : 0810 Time Out: 0855 Total Time with Patient (Min): 45 min Missed Minutes : 0 RADHA EASLEY 05/25/2019 Cosigned by Paz Linn CCC-P[facility]ING [facility] FLOORHAND at 05/25/2019 3:14 PM GLOVE TAGGER * Plan of Care - Sol Conrad RN - 05/25/2019 12:23 AM CST Problem: Infection Goal: Absence of infection and [...] facility with appropriate resources Outcome: Progressing Goal: manager supply will develop a plan to 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 burden and 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 in role Outcome: Progressing Problem: Knowledge Deficit Goal: Patient/family/caregiver [...] is Maintained or Improved Outcome: Progressing Problem: Case Management Discharge Goals Goal: Identify patient's discharge goals Outcome: Progressing Goal: Coordinate Safe Discharge Plan Outcome: Progressing Goal: Work with the treatment team to assess caregiver capability Outcome: Progressing Problem: Pain Goal: Patient's pain/discomfort is manageable Outcome: Progressing * Wound Progress Note - Hoa Galvan RN - 05/24/2019 3:22 PM CST Wound Progress Note Reason for wound Consult: Left Heel Pain/ feels boggy The pt is a 73 year old male, who has a past medical history of Chronic kidney disease, stage V, anemia related to his renal disease, Hypercholesterolemia, HTN, T2DM, his CKD 5 further manifested with volume overload, especially his low extremities more on the left, venous doppler on 04/29/19 shows: No evidence of acute deep vein thrombosis in the left lower extremity. There is a left groin and proximal thigh fluid collection adjacent the femur measuring 60 x 23 x 39 mm. There is no flow. Since pt has advance renal disease, and overload, he was admitted to [facility] [place] for further Management. I was asked to see patient regarding bilateral heels. Patient was complaining of pain to LEFT heel and CORK COMPOUNDER stated it felt boggy in nature. Jules Mitchell is a 73 y.o. male with the following Problems. 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 Hyperglycemia Past Medical History: Past Medical History: Diagnosis Date ??? Diabetes mellitus ??? Diabetes mellitus 05/12/2019 ??? End stage renal failure on dialysis 05/12/2019 New to dialysis ??? Hypertension ??? Other abnormal clinical findings ??? Seroma 05/12/2019 Proximal Left thigh 60 x 23 x39 mm by US Past Surgical History: No past surgical history on file. Allergies: Patient has no known allergies. Dennis Score: Dennis Scale Score: 20 Wound/Ulcer Assessment: Bilateral Heels were examined, there is no discoloration, pain to touch, patient denies further pain on heel, but does state his left hip and leg hurts. The heels do not feel boggy, there is no erythema, drainage, or edema noted. Patient does seem to have dry feet. CORK COMPOUNDER already ordered Minerin. Recommend further workup of previous fluid collection on right groin area as it states there is no flow on previous study. There is no wound for Wound Care to follow. Please re-consult as needed. Recommendations: patient has already been utilizing heelmedix boots. Recommend continue using. Preventative skin care measures:turn, reposition q2-3 hours, elevate or use heel protectors, assess for incontinence, toileting schedule if permissible. Use moisturizers for dry skin, moisture barrier cream if needed. Signature: HOA GALVAN RN Date: 05/24/2019 Time: 3:22 PM * PT Treatment Note - yKlie Sanchez, PT - 05/24/2019 11:18 AM CST PT Treatment Patient Name: Jules Mitchell Patient Birthdate: 1945 Patient Subjective Report - Pt seated in w/c upon start of session. He notes increased stiffness inLE's at start of session, however agreeable to therapy. Pain Assessment Pain Context: Therapy Assessment Prior to Treatment (05/24/19 111) Pain Assessment: None/denies pain (05/24/19 111) Surface: Even surface Assistive Device: RW Ambulation Level of Assistance: Close Supervision and Minimal Verbal Cues Distance (feet): 186 Gait Analysis: 1 x 186 with RW and close sup throughout. Pt demonstrates increased reliance on UE support from RW, decreased step length, decreased foot clearance and decreased. Pt requires seated rest break upon completion. Pt continues to require intermittent cues for maintaining appropriate distance from RW. Also emphasis on increased gait speed (carry-over from [employer] bike emphasis). Rails: Left Stairs Level of Assistance: Minimal Assistance and Contact Guard Stairs Height of Step: 6-inch Stair Analysis: Pt ascends/descends 14 steps at 6 inches each with L HR, nonreciprocal pattern up (leading with R LE) and down with posterior approach (leading with L LE). Pt demonstrates significantly increased trunk flexion with increased fatigue and increased reliance on UE support for balance and force production. Pt begins with CGA (first 10 steps, however requires varying CGA-Min A for remainder of steps. Seated rest break upon completion. Number of Steps: 14 Transfer to 1: Stand Transfer from 1: Wheelchair Technique 1: Stand to sit and Sit to stand Transfer Level of Assistance 1: Distant Supervision Trials/Comments1: With RW for UE support and increased time to complete. Seated Position: Pt performed B UE and LE reciprocal exercise on Vizy bike at level 1 resistance for a total of 15 minutes with emphasis on speed of pedalling in order to improve functional endurance and tolerance to mobility as well as improve gait speed during ambulation. Were respiratory Interventions provided?: No PT Treatment Outcomes:: Patient is progressing toward STG, Patient tolerated treatment well, Safetydevice reapplied, Cues needed for safety, Improved ambulation performance, Improved balance and coordination and Improved transfer ability noted PT Summary:: [...] Evaluation and Follow-up Pain Reassessment: No pain (05/24/19 1202) Nursing notified of patient's pain assessment: Not indicated - pain score 2 or less (05/24/19 1202) Therapy Minutes Individual Concurrent Co-Treat Time In : 1118 Time Out: 1203 Total Time with Patient (Min): 45 min Missed Minutes : 0 KYLIE SANCHEZ PT 05/24/2019 * OT Treatment Note - Carlos Caba OT - 05/24/2019 10:30 AM CST Occupational Therapy Treatment Patient Name: Jules Mitchell Patient Birthdate: 1945 Pain Assessment Pain Context: Therapy Assessment Prior to Treatment (05/24/19 1030) Pain Assessment: None/denies pain (05/24/19 1030) ADL Status: Bathing Comments: Pt offered shower however pt declines requesting to complete shower tomorrow AM. Toilet Transfer: Close Supervision Toilet Transfer to: Standard toilet Toilet Transfer From: Wheelchair Toilet Transfers Comments: Pt participates in ambulatory transfer training - ambulating to and fromtoilet from outside of bathroom to simulate home setting and prepare for discharge. Pt requires close supervision for safety due to impaired safety awareness and cues for safe use of RW. Pt requires significantly increased time. Pt complains of pain with R hip during functional ambulation - MD aware. Bed, Chair, Wheelchair Transfer: Close Supervision Bed/Chair Transfer to: Stand Bed/Chair Transfer from: Wheelchair Bed/Chair Transfer Technique: Stand to sit and Sit to stand Assistive Devices Used: Walker Bed/Chair Transfer Comments: Pt requires verbal reminders for safe hand placement. Standing Tolerance Time (mins): 5 minutes x2 trials Activity: Dynamic reaching, lateral weight shifting, cognitive training through tabletop activity Functional Standing Tolerance Comments: Pt participates in standing tolerance and dynamic standing training through problem-solving and planning task at table. Pt requires minimal verbal cues for comprehension and recall of direction throughout activity. PT completes x2 trials while standing with close SBA due to impaired balance. (Pt participates in training while standing to improve tolerance and balance during self-care. ) Standing Assist: Close Supervision Cognitive Skills Training: Problem Solving comments: Pt participates in cognitive training focusing on task focus, problem-solving and direction following. Pt participates through card sorting and organization task. Pt able tosort cards into 4 suits with significantly increased time and only minimal verbal cues. Pt able to sort/match cards with verbal cues for task modification/simplification strategies. Pt requires significantly increased time due to delayed processessing and minimal assist for recall of directions. (Pt participates to improve cognitive skills during self-care. ) Treatment, Outcomes and Plan: OT Narrative:: Pt participates well in therapy on this date. Patient remained up sitting in chair at end of session with pelvic positioning belt on, chair alarm in place, PT present. OT Treatment Outcomes:: Safety device reapplied and Patient tolerated treatment well OT Summary Plan of Care: Continue with current plan of care Pain Evaluation and Follow-up Pain Reassessment: No pain (05/24/19 1117) Nursing notified of patient's pain assessment: Not indicated - pain score 2 or less (05/24/19 1117) Therapy Minutes Individual Concurrent Co-Treat Time In : 1030 Time Out: 1118 Total Time with Patient (Min): 48 min Missed Minutes : 3 CARLOS CABA OT 05/24/2019 * PULLING [facility]IT FLOORHAND Treatment Note - ST Zack - 05/24/2019 9:00 AM CST Speech Language Pathologist Treatment Patient Name: Jules Mitchell Patient Birthdate: 1945 Patient Subjective Report - Pt. Seemed uncomfortable at the start of session, but denied any pain or needing anything. Pt. Was pleasant, compliant, and motivated to participate throughout entire session. Pain Assessment Pain Context: Therapy Assessment During Treatment (05/24/19902) Pain Assessment: NRS 0-10 (05/24/19902) Pain Score: 0 - No pain (05/24/19902) Cognitive Communication: Orientation, Basic attention, Word finding and Other (Comment) (naming) Patient/Caregiver Training: Cognitive Communication Disorder, Cognitive strategies, Completed with patient and Therapy goals and treatment plan ST Narrative:: Pt. Was seen in his room. Pt. Was up in his chair and ready for speech therapy. Skilled intervention included instruction for pt. To answer orientation log questions with an overall score of 20/30. Pt. Was also instructed to participate in divergent naming tasks in which he named as many items as he could in one minute in a basic category. Pt. Named an average of 5.3 items in one minute over 3 basic categories (colors, clothing, foods). Pt. Completed a basic level passage decoding task to target basic attention w/80% accy. SBA; 100% w/up to mod-maxA to correct. Pt. Benefited from increased time for alternating attention and processing directions and information. Pt. Would benefit from continued skilled speech therapy to address short term goals as outlined in plan of care to progress toward prior level of function. ST Session Outcomes: Minimal cues during session, Moderate cues during session, Patient/family education progressing, Progressing toward STGs and Tolerated treatment well ST Summary Plan of Care: Continue with current plan of care Pain Evaluation and Follow-up Pain Reassessment: No pain (05/24/19943) Nursing notified of patient's pain assessment: Not indicated - pain score 2 or less (05/24/19943) Therapy Minutes Individual Concurrent Co-Treat Time In : 0900 Time Out: 944 Breaks/Pauses (Min): 0 mins Total Time with Patient (Min): 45 min Missed Minutes : [address] 05/24/2019 * PT Treatment Note - Eugenia Robles, PT - 05/24/2019 8:15 AM CST PT Treatment Patient Name: Jules Mitchell Patient Birthdate: 1945 Patient Subjective Report - agreeable to PT session; reports L hip pain with use. Pain Assessment Pain Context: Therapy Assessment During Treatment (05/24/19845) Pain Assessment: NRS 0-10 (05/24/19814) Pain Score: 2 (05/24/19814) Pain Type: Acute pain (05/24/19814) Pain Location: Toe (Comment which one)(great toe) (05/24/19814) Pain Orientation: Left (05/24/19814) Pain Descriptors: Aching (05/24/19814) Pain Onset: Gradual (05/24/19814) Pain Frequency: Intermittent (05/24/19814) Pain Interventions Education Provided: Patient (05/24/19845) Non-Pharmacologic Pain Interventions: Rest, Position/Reposition (05/24/19845) Emotional/Spiritual Pain Interventions: Emotional Support (05/24/19845) Vital Signs Pulse: 89 (05/24/19845) Heart Rate Source: Monitor (05/24/19845) BP: 112/58 (05/24/19845) MAP (mmHg): 76 (05/24/19845) BP Location: Left arm (05/24/19845) BP Method: Automatic (05/24/19845) Patient Position: Sitting (05/24/19845) Oxygen Context: Sitting (05/24/19845) SpO2: 97 % (05/24/19845) O2 Device: None (Room air) (05/24/19845) Bed Mobility: Performed on bed and Short sit to - from supine Bed Mobility Level of Assistance: Contact Guard Bed Mobility Comment: Use of leg hospital laboratory technician for LLE; increased time Surface: Even surface Assistive Device: RW Ambulation Level of Assistance: Close Supervision Distance (feet): 160 Gait Analysis: Ambulates with WW 160' x 2, 100' with SBA of one demonstrating slow joao, tendency to push WW too far ahead, decreased step length and foot clearance. Rails: Bilateral Assistive Device: No device Stairs Height of Step: 6-inch Stair Analysis: Performed 8 steps with 2 trials Number of Steps: 8 Assistive Device: RW Curb Level of Assistance: Close Supervision Curb Comment: 2, 4, 6 inch w/ ww Transfer to 1: Bed Transfer from 1: Wheelchair Technique 1: Stand pivot Transfer Level of Assistance 1: Close Supervision Trials/Comments1: WW Transfer to 2: Wheelchair Transfer from 2: Stand Technique 2: Sit to stand Transfer Level of Assistance 2: Close Supervision and Distant Supervision Trials/Comments 2: WW Standing Position: engineering document control clerk ll bar: L or R foot clearance over bolster to encourage foot clearance (pain with LLE mvmt over elevation) RLE: Full weight-bearing LLE: Full weight-bearing RUE: Full weight-bearing LUE: Full weight-bearing Activity Type: Standing Activity Endurance: Fair Compromised ability to maintain sitting: Yes PT Treatment Outcomes:: Cues needed for safety and Patient tolerated treatment well PT Summary:: Patient remained up sitting in chair at end of session with pelvic positioning belt on, chair alarm in place, call light and phone within reach. LLE hip pain with standing exercise- hip flexion placing LLE over obstacle; Focus session: bed mobility, transfers, gait, elevations. PT Summary Plan of Care: Continue with current plan of care Pain Evaluation and Follow-up Response to Therapy Interventions: Improved activity tolerance (05/24/19 0846) Nursing notified of patient's pain assessment: Not indicated - pain score 2 or less (05/24/19 0846) Therapy Minutes Individual Concurrent Co-Treat Time In : 0815 Time Out: 0900 Total Time with Patient (Min): 45 min Missed Minutes : 0 EUGENIA ROBLES, PT 05/24/2019 * Plan of Care - Estrella Ford RN - 05/23/2019 6:00 PM CST Problem: Infection Goal: Absence of infection and [...] facility with appropriate resources Outcome: Progressing Goal: manager supply will develop a plan to 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 burden and 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 in role Outcome: Progressing Problem: Knowledge Deficit Goal: Patient/family/caregiver [...] is Maintained or Improved Outcome: Progressing Problem: Case Management Discharge Goals Goal: Identify patient's discharge goals Outcome: Progressing Goal: Coordinate Safe Discharge Plan Outcome: Progressing Goal: Work with the treatment team to assess caregiver capability Outcome: Progressing Problem: Pain Goal: Patient's pain/discomfort is manageable Outcome: Progressing * PT Treatment Note - Shahnaz Marinelli PT - 05/23/2019 11:20 AM CST PT Treatment Patient Name: Jules Mitchell Patient Birthdate: 1945 Patient Subjective Report - I'll try walking Pain Assessment Pain Context: Therapy Assessment During Treatment (05/23/19 1155) Pain Assessment: None/denies pain (05/23/19 1120) Pain Score: 0 - No pain(it doesn't hurt unless I move it) (05/23/19 1120) Pain Location: Shoulder (05/23/19 1120) Pain Orientation: Right(reports pain in right shoulder only if I move it) (05/23/19 1120) Pain Onset: Gradual (05/23/19 1120) Pain Frequency: Constant/continuous(ever since I fell on it before the hospital) (05/23/19 1120) Aggravating Factors: Specified Activity/Other (Comment)(every time I move it) (05/23/19 1120) Pre-therapy pain intervention required: Patient expressed pain is tolerable/able to proceed (05/23/19 1120) Pain Interventions Education Provided: Patient (05/23/19 1120) Non-Pharmacologic Pain Interventions: Exercise/Activity, Distractions, Position/Reposition (05/23/19 1120) Emotional/Spiritual Pain Interventions: Empathetic Discussion (05/23/19 112) Overall Cognitive Status: Impairments impacting function Alert: Yes Oriented to Place: Yes Oriented to Time: No (narrative) Able to Follow 1 Step Commands: Yes (delayed, requires increased time) Comment: Cues required to state current year Surface: Indoor and Even surface Assistive Device: RW Ambulation Level of Assistance: Close Supervision and Contact Guard Distance (feet): 100 Gait Analysis: Ambulates with wheeled walker, 82 feet x 2 and 100 feet x 1, with close supervision to CGA for upright posture and positioning within the walker; gait deviations included decreased step length, decreased foot clearance, with shuffling gait; cues to increase step length and encourage heel strike Transfer to 1: Stand Transfer from 1: Sit and Wheelchair Technique 1: Stand to sit and Sit to stand Transfer Level of Assistance 1: Contact Guard and Minimal Verbal Cues Trials/Comments1: Transfers sit to/from stand from wheelchair with verbal cues for hand placement and CGA for full upright posture Distance Traveled in Wheelchair (feet): 68 Wheelchair size: 18 Wheelchair Type: Manual Surface: Even surface and Indoor Propulsion Method: Bilateral upper extremity and Right lower extremity Wheelchair Propulsion Level of Assistance: Moderate Assistance Wheelchair Analysis: Propels manual w/c 68 feet using UE's and right LE, cues and moderate assist hand over hand instruction initially required to improve bilateral UE reach on W/C rims and improve forward excursion. Assist required in tight space for turns Standing Position: Completed bilateral LE toe taps and step ups on 6 inch step to improve LE strength and balance and to increase foot clearance for gait Therapeutic Activities and Neuromuscular Re-education: Sit to/from stand blocked practice 2 sets of5 to improve functional transfers and LE strength PT Treatment Outcomes:: Cues needed for safety, Gait deviations reduced, Patient is progressing toward STG, Patient tolerated treatment well and Safety device reapplied PT Summary:: Patient is cooperative and motivated during PT session; will benefit from continued PTto maximize functional independence and safesty Pain Evaluation and Follow-up Response to Therapy Interventions: Improved mobility, Improved activity tolerance (05/23/19 1155) Pain Reassessment: No pain (05/23/19 1155) Therapy Minutes Individual Concurrent Co-Treat Time In : 1120 Time Out: 1205 Breaks/Pauses (Min): 0 mins Total Time with Patient (Min): 45 min Missed Minutes : 0 SHAHNAZ MARINELLI, PT 05/23/2019 * [facility] Treatment Note - Shade Evangelista, [facility] - 05/23/2019 9:02 AM [employer] [employer] Speech Language Pathologist Treatment Patient Name: Jules Mitchell Patient Birthdate: 1945 Patient Subjective Report - Alert in w/c, having just finished OT. Pain Assessment Pain Context: Therapy Assessment Prior to Treatment (05/23/19901) Pain Assessment: None/denies pain (05/23/19901) Cognitive Communication: Functional problem solving, Compensatory techniques for cognition, Short-term memory, Verbal problem solving, Speed of processing, Immediate memory, Basic attention, Word finding and Task persistence Dysarthria: Articulation, Speech intelligibility and Compensatory techniques for dysarthria Patient/Caregiver Training: Cognitive Communication Disorder, Cognitive strategies, Communication strategies, Therapy goals and treatment plan, Completed with patient and Dysarthria Were respiratory Interventions provided?: No ST Narrative:: Patient seen this date alert and upright in w/c, denies pain. Patient asked to recall tasks completed in his OT session that occurred just prior. Patient began naming various places around [place] with no clarification on their relation to the topic at hand. Patient required mod assist for recall of tasks completed in OT. Patient asked to recall food items eaten for breakfast. Patient generated 3 items, but after each one he self-corrected (I.e. sausage, no not sausage. Pancakes, nonot pancakes.). Unsure what food items patient actually consumed this AM. Patient participated in orientation questions in which he generated information that seems unlikely, difficulty determining accuracy from EUGENIE review. Patient stated that he was admitted here from a hospital in [place], [place], but that he lives in [place]. Unable to explain further why he was at a hospital in [place], [place], difficulty with comprehension suspected. Patient also stated that he was admitted 2/2 breaking his leg, but there was no record of this in the patient's EUGENIE. Patient denies that he was admitted s/p exacerbation of acute kidney failure. Patient received a score of 17/30 on the orientation log this date, a significant decline in accuracy from prior sessions. Reviewed compensatory speaking strategies with the patient this date. Patient able to recall 1/3 strategies independently. Patient completed a divergent naming task in which he generated 10 breakfastfoods with min assist and 15 animals with min-standby assist, delayed processing t/o task. Patient's speech rated at 95% intelligible at the single word level. Patient completed a verbal problem solving task to a level of 75% accuracy with min-mod assist. Continue POC. Patient remained up sitting in chair at end of session with pelvic positioning belt on, chair alarmin place, call light and phone within reach. ST Session Outcomes: Tolerated treatment well, Strategies effectively used, Moderate cues during session, Progressing toward STGs, Patient/family education progressing and Minimal cues during session ST Summary Plan of Care: Continue with current plan of care Pain Evaluation and Follow-up Pain Reassessment: No pain (05/23/19942) Nursing notified of patient's pain assessment: Not indicated - pain score 2 or less (05/23/1943) Therapy Minutes Individual Concurrent Co-Treat Time In : 901 Time Out: 947 Total Time with Patient (Min): 46 min Missed Minutes : 1 SHADE EVANGELISTA CCC-[facility] 05/23/2019 * OT Treatment Note - Maliha Metzger OT - 05/23/2019 7:35 AM CST Occupational Therapy Treatment Patient Name: Jules Mitchell Patient Birthdate: 1945 Pain Assessment Pain Context: Therapy Assessment Prior to Treatment (05/23/19734) Pain Assessment: None/denies pain (05/23/19734) Pain Score: 0 - No pain (05/23/19734) Pre-therapy pain intervention required: Patient expressed pain is tolerable/able to proceed (05/23/19 0900) ADL Status: Grooming: Distant Supervision Grooming Where Assessed: Standing at sink Grooming Comments: Completed hand hygiene standing at sink with supervision. Toileting: Close Supervision Toileting Where Assessed: Toilet Toilet Comments: Completed 3/3 tasks with supervision with verbal cues for safety and balance. Toilet Transfer: Close Supervision Toilet Transfer to: Standard toilet with rails Toilet Transfer From: Wheelchair Toilet Transfer Technique: Ambulatory Toilet Transfers Comments: Ambulated into bathroom with wheeled walker with supervision, during ambulation pt demonstrates increased pain with movement and and grimicing however denies pain OT Therapeutic Activity: Therapeutic Activity: Pt completed dynamic standing activity at table top x 2 trials completing standing x 5 minutes and 4 minutes 30 seconds while completing visual scanning and perceptual task of word search puzzle to increase standing balance, tolerance, visual scanning, to assist with ADL tasksand functional mobility. Pt stood using BUE support on table top with SBA. Pt required assistance with visual scanning only finding 3/12 words in word search during 2 standing trails. Treatment, Outcomes and Plan: OT Narrative:: Pt reports not sleeping well due to his legs being wrapped up and boots on, Pt reports left heal does not feel tender like it did yesterday, education provided on importance of wearingboots to float heals to prevent pressure injury on heals. At the end of therapy, patient was up in wheelchair with call light placed and chair alarm on. OT Treatment Outcomes:: Safety device reapplied, Patient tolerated treatment well, Patient is progressing toward STG(s), Improved balance and coordination and Improved ADL performance OT Summary Plan of Care: Continue with current plan of care Pain Evaluation and Follow-up Pain Reassessment: No pain (05/23/19 09) Nursing notified of patient's pain assessment: Not indicated - pain score 2 or less (05/23/19899) Therapy Minutes Individual Concurrent Co-Treat Time In : 729 Time Out: 899 Total Time with Patient (Min): 90 min Missed Minutes : 0 MALIHA METZGER OT 05/23/2019 * Plan of Care - Sarika Finn RN - 05/22/2019 11:09 PM CST Problem: Infection Goal: Absence of infection and [...] facility with appropriate resources Outcome: Progressing Goal: manager supply will develop a plan to 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 burden and 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 in role Outcome: Progressing Problem: Knowledge Deficit Goal: Patient/family/caregiver demonstrates understanding of disease process, treatment plan, medications, and discharge instructions Outcome: Progressing * Plan of Care - Estrella Ford RN - 05/22/2019 2:06 PM CST Problem: Infection Goal: Absence of infection and [...] facility with appropriate resources Outcome: Progressing Goal: manager supply will develop a plan to 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 burden and 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 in role Outcome: Progressing Problem: Knowledge Deficit Goal: Patient/family/caregiver [...] is Maintained or Improved Outcome: Progressing Problem: Case Management Discharge Goals Goal: Identify patient's discharge goals Outcome: Progressing Goal: Coordinate Safe Discharge Plan Outcome: Progressing Goal: Work with the treatment team to assess caregiver capability Outcome: Progressing Problem: Pain Goal: Patient's pain/discomfort is manageable Outcome: Progressing * Plan of Care - Sarika Finn RN - 05/22/2019 2:09 AM CST Problem: Infection Goal: Absence of infection and [...] facility with appropriate resources Outcome: Progressing Goal: manager supply will develop a plan to 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 burden and 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 in role Outcome: Progressing Problem: Knowledge Deficit Goal: Patient/family/caregiver demonstrates understanding of disease process, treatment plan, medications, and discharge instructions Outcome: Progressing * Plan of Care - Pako Diaz RN - 05/21/2019 3:13 PM CST No falls, uses call light * PT Treatment Note - Shakila Rodríguez, PT - 05/21/2019 1:20 PM CST PT Treatment Patient Name: Jules Mitchell Patient Birthdate: 1945 Patient Subjective Report - Patient agreeable to participate in therapy at start of therapy session. Pain Assessment Pain Context: Therapy Assessment Prior to Treatment (05/21/191302) Pain Score: 1 - Mild Pain (05/21/191302) Pain Type: Acute pain (05/21/191302) Pain Location: Back (05/21/191302) Pain Orientation: Right, Lower (05/21/191302) Pain Descriptors: Aching, Discomfort (05/21/191302) Pain Frequency: Constant/continuous (05/21/191302) Aggravating Factors: Activity Duration, Positioning (05/21/191302) Functional Impact: Mood (05/21/191302) Pre-therapy pain intervention required: Patient expressed pain is tolerable/able to proceed (05/21/191302) Pain Interventions Education Provided: Patient (05/21/191302) Non-Pharmacologic Pain Interventions: Position/Reposition, Exercise/Activity (05/21/191302) Emotional/Spiritual Pain Interventions: Emotional Support (05/21/191302) Pain Consults Initiated or Completed: Rehab (05/21/191302) Surface: Even surface and Indoor Assistive Device: RW Ambulation Level of Assistance: Close Supervision Distance (feet): 100 Gait Analysis: Patient ambulated 100 feet x2 sets with RW and lose supervision for safety. Patient provided mod vc for increased B foot clearance and step length, upright posture, and looking upward.Gait deviations include: decreased joao, decreased B step length and foot clearance, impaired heel-toe gait pattern, rounded shoulders, looking downward, increased B UE support on RW, shuffle gaitpattern, toe touch contact at initial contact, and impaired balance. Rails: Bilateral (B UE support on B handrails) Assistive Device: No device Stairs Level of Assistance: Close Supervision Stairs Height of Step: 6-inch Stair Analysis: Patient negotiated 4 6-inch steps x2 consecutive sets with B UE support on B handrails, step-to climbing pattern ascending leading with R LE and descending leading with L LE, and close supervision for safety. Patient provided mod vc for stepping sequence and upright posture. Number of Steps: 8 Transfer to 1: Stand Transfer from 1: Wheelchair Technique 1: Stand to sit and Sit to stand Transfer Level of Assistance 1: Close Supervision Trials/Comments1: Performed with RW and close supervision for safety. Patient demonstrated appropriate UE support on RW. Transfer to 2: Bed Transfer from 2: Wheelchair Technique 2: Stand pivot Transfer Level of Assistance 2: Close Supervision Trials/Comments 2: Performed with RW and close supervision for safety. Patient provided min vc for close approximation of posterior aspect of B knees to bed and UE support on transfer surface. Seated Position: Patient performed the following LE ther-ex to enhance B LE strength/endurance during gait and functional mobility with 2# ankle weight on R LE: hip flexion marching x15 per LE, LAQ x15 per LE, altrenating ankle pumps x20 per LE, hamstring curls x20 per LE, and hip abduction x15 perLE. Patient performed SCI-FIT level 1 x10 minutes with B UE/LE to enhance B UE/LE strength/endurance, activity tolerance, general cardiovascular endurance, and B UE/LE neuro re-ed in reciprocal movement pattern. RLE: Full weight-bearing LLE: Full weight-bearing RUE: Full weight-bearing LUE: Full weight-bearing Activity Type: Standing Activity Endurance: Fair Activity comment: Patient standing tolerance limited by impaired activity tolerance, impaired endurance, and impaired standing balance. Static Standing Balance Support: Assistive device needed (Comment) (RW) Static Standing Level of Assistance: Close Supervision Static Standing # of Mins/Comments: <5 mins Therapeutic Activities and Neuromuscular Re-education: Patient performed blocked sit <> standtransfer training x8 reps with RW and close supervision for safety. Patient provided min vc for UE support on WC arm rests. Done to enhance B LE strength and functional independence during transfers. Patient performed standing alternating 4-inch cone taps x10 per LE with RW and CGA-Perry for balance, stability, upright posture, and safety. Done to enhance B LE foot clearance, lateral weight shift,B LE fine motor control and coordination, and dynamic standing balance during gait and functional mobility. Were respiratory Interventions provided?: No PT Treatment Outcomes:: Safety device reapplied, Patient tolerated treatment well, Patient is progressing toward STG, Goals met for this session and Improved transfer ability noted PT Summary:: Session focused on ambulation, transfer training, B LE there-ex to enhance B LE strength/endurance, stair negotiation, dynamic balance and B LE fine motor control there-act, and SCI-FIT to enhance overall activity tolerance. Patient progressed to ambulating 100 feet with RW and close supervision, transferring with close supervision, and negotiating 8 steps with CGA. Patient remained up sitting EOB, bed alarm in place, call light and phone within reach, and RN and patient tech notified. PT Summary Plan of Care: Continue with current plan of care Pain Evaluation and Follow-up Response to Therapy Interventions: Improved mobility (05/21/19 1435) Pain Reassessment: No pain (05/21/19 1435) Nursing notified of patient's pain assessment: Not indicated - pain score 2 or less (05/21/19 1435) Therapy Minutes Individual Concurrent Co-Treat Time In : 1303 Time Out: 1435 Breaks/Pauses (Min): 0 mins Total Time with Patient (Min): 92 min Missed Minutes : 2 SHAKILA RODRÍGUEZ, PT 05/21/2019 * [facility] Treatment Note - Radha Easley - 05/21/2019 9:45 AM CST Speech Language Pathologist Treatment Patient Name: Jules Mitchell Patient Birthdate: 1945 Patient Subjective Report - Patient was awake in wheelchair in room. Pain Assessment Pain Context: Therapy Assessment Prior to Treatment (05/21/19944) Pain Score: 0 - No pain (05/21/19944) Cognitive Communication: Functional problem solving, Orientation, Pragmatics and social interaction, Compensatory techniques for cognition, Insight, Short-term memory, Speed of processing, Verbal problem solving, Organization and Basic attention Dysarthria: Speech intelligibility, Compensatory techniques for dysarthria, Articulation and Conversational speech Patient/Caregiver Training: Cognitive Communication Disorder, Cognitive strategies, Dysarthria, Communication strategies, Completed with patient and Therapy goals and treatment plan ST Narrative:: Patient demonstrated decreased memory pertaining to safety precautions and reasoningrelated to using walker to transition out of/onto chair, and reaching for items on the floor. He stated the walker was used to help make sure I don't trip. He was educated on reasoning for walker use and safe wheel chair procedures (locking wheelchair, moving leg rests, stand up/sit down). Demonstrations of safe/unsafe use of walker were provided to patient and he identified unsafe features from demonstration. Upon incorrect identification of unsafe procedures he was given mod/max cues and demonstrations of appropriate procedures with comprehension checks. He verbalized understanding of safety precautions but requires continued reinforcement to recall safety strategies. Patient scored a 24/30 on the orientation log with orientation to city, kind of place, name of hospital, day of the week, reason for hospitalization, and deficits and needing cues for month, clock time, date, and year. This score was an increase from the previous . He demonstrated 71% accuracywith a divergent naming task and required mod cues to identify items that did not belong within a category. He generated 4 items in a divergent naming task in 60 seconds, a decrease from the previous5 in 60 seconds likely due to the increased difficulty of the category type. Patient maintained 85%intelligibility within context of activities but displayed an increase to 75% intelligibility in open ended conversation from the previous session. Overall, patient was pleasant and cooperative. He continued to present with impaired recall and functional problem solving as evidenced by cues required to express safety precautions related to transitions to/from wheelchair. His orientation was improved from the previous session and he displayed use of compensatory strategy of looking to the clock to locate time when prompted. Patient's intelligibility maintained from the previous session within activities but increased in open ended conversation. Continue ST. Patient remained up sitting in chair at end of session with pelvic positioning belt on, chair alarmin place, call light and phone within reach. ST Session Outcomes: Tolerated treatment well, Strategies effectively used, Moderate cues during session and Patient/family education progressing ST Summary Plan of Care: Continue with current plan of care Pain Evaluation and Follow-up Pain Reassessment: No pain (05/21/19 1030) Therapy Minutes Individual Concurrent Co-Treat Time In : 0945 Time Out: 1030 Total Time with Patient (Min): 45 min Missed Minutes : 0 RADHA EASLEY 05/21/2019 Cosigned by Paz Linn CCC-[facility] FLOORHAND at 05/21/2019 1:26 PM GLOVE TAGGER * OT Treatment Note - Carlos Caba OT - 05/21/2019 7:30 AM CST Occupational Therapy Treatment Patient Name: Jules Mitchell Patient Birthdate: 1945 Pain Assessment Pain Context: Therapy Assessment Prior to Treatment (05/21/19729) Pain Assessment: None/denies pain (05/21/19729) ADL Status: Bed, Chair, Wheelchair Transfer: Close Supervision Bed/Chair Transfer to: Stand Bed/Chair Transfer from: Wheelchair Bed/Chair Transfer Technique: Stand to sit, Sit to stand and Ambulatory Assistive Devices Used: Walker (w/ visual aide for mechanics during sit <> stand ) Bed/Chair Transfer Comments: Pt emerging distant supervision - requiring less verbal cues for proper hand placement during sit <> stand. Pt demonstrates improved carryover from prior session. Mobility Assist for Money Management: Close Supervision Money Management: Pt participates in problem-solving, task focus and functional memory training through use of money management board. Pt retrieves 3/6 amounts accurately with significantly increasedtime/without verbal cues. Pt requires moderate to maximal verbal cues for strategies and problem-solving throughout task. Pt participates in training to improve functional coordination during self-care/IADL's. OT Therapeutic Activity: Therapeutic Activity: Pt participates in item retrieval training throughout therapy gym - ambulating approximately 50-75 feet with use of RW and close supervision for dynamic standing balance/cues for safety. Pt retrieves x10 items with significantly increased time. Pt participates in training to improve item retrieval during ADL's/IADL's and safety throughout functional mobility. Treatment, Outcomes and Plan: OT Narrative:: Pt participates well in therapy on this date. Patient remained up sitting in chair at end of session with pelvic positioning belt on, chair alarm in place, call light and phone within reach. OT Treatment Outcomes:: Safety device reapplied and Patient tolerated treatment well OT Summary Plan of Care: Continue with current plan of care Pain Evaluation and Follow-up Pain Reassessment: No pain (05/21/19813) Nursing notified of patient's pain assessment: Not indicated - pain score 2 or less (05/21/19813) Therapy Minutes Individual Concurrent Co-Treat Time In : 729 Time Out: 15 Total Time with Patient (Min): 45 min Missed Minutes : 0 CARLOS CAAB OT 05/21/2019 * Plan of Care - Estrella Ford RN - 05/20/2019 6:30 PM CST Problem: Infection Goal: Absence of infection and [...] facility with appropriate resources Outcome: Progressing Goal: manager supply will develop a plan to 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 burden and 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 in role Outcome: Progressing Problem: Knowledge Deficit Goal: Patient/family/caregiver [...] is Maintained or Improved Outcome: Progressing Problem: Case Management Discharge Goals Goal: Identify patient's discharge goals Outcome: Progressing Goal: Coordinate Safe Discharge Plan Outcome: Progressing Goal: Work with the treatment team to assess caregiver capability Outcome: Progressing Problem: Pain Goal: Patient's pain/discomfort is manageable Outcome: Progressing * Plan of Care - Estrella Ford RN - 05/20/2019 6:00 PM CST Problem: Infection Goal: Absence of infection and prevention of transmission during hospitalization 05/20/20191930 by Estrella Ford RN Outcome: Progressing 05/20/20191929 by Estrella Ford RN Outcome: Progressing Problem: Fall Safety Goal: Free from fall injury 05/20/20191930 by Estrella Ford RN Outcome: Progressing 05/20/20191929 by Estrella Ford RN Outcome: Progressing Problem: Knowledge Deficit Goal: Patient and/or family demonstrate readiness to learn 05/20/20191930 by Estrella Ford RN Outcome: Progressing 05/20/20191929 by Estrella Ford RN Outcome: Progressing Goal: Patient and/or family verbalizes understanding of education, and/or performs desired skill 05/20/20191930 by Estrella Ford RN Outcome: Progressing 05/20/20191929 by Estrella Ford RN Outcome: Progressing Problem: Discharge Planning Goal: Discharge to home or other facility with appropriate resources 05/20/20191930 by Estrella Ford RN Outcome: Progressing 05/20/20191929 by Estrella Ford RN Outcome: Progressing Goal: manager supply will develop a plan to 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 burden and 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 in role 05/20/20191930 by Estrella Ford RN Outcome: Progressing 05/20/20191929 by Estrella Ford RN Outcome: Progressing Problem: Knowledge Deficit Goal: Patient/family/caregiver demonstrates understanding of disease process, treatment plan, medications, and discharge instructions 05/20/20191930 by Estrella Ford RN Outcome: Progressing 05/20/20191929 by Estrella Ford RN Outcome: Progressing Problem: Potential for Compromised Skin Integrity Goal: Skin integrity is maintained or improved 05/20/20191930 by Estrella Ford RN Outcome: Progressing 05/20/20191929 by Estrella Ford RN Outcome: Progressing Goal: Nutritional status is improving 05/20/20191930 by Estrella Ford RN Outcome: Progressing 05/20/20191929 by Estrella Ford RN Outcome: Progressing Problem: Urinary Incontinence Goal: Perineal skin integrity is maintained or improved 05/20/20191930 by Estrella Ford RN Outcome: Progressing 05/20/20191929 by Estrella Ford RN Outcome: Progressing Problem: Bowel Incontinence Goal: Perineal Skin Integrity is Maintained or Improved 05/20/20191930 by Estrella Ford RN Outcome: Progressing 05/20/20191929 by Estrella Ford RN Outcome: Progressing Problem: Case Management Discharge Goals Goal: Identify patient's discharge goals 05/20/20191930 by Estrella Ford RN Outcome: Progressing 05/20/20191929 by Estrella Ford RN Outcome: Progressing Goal: Coordinate Safe Discharge Plan 05/20/20191930 by Estrella Ford RN Outcome: Progressing 05/20/20191929 by Estrella Ford RN Outcome: Progressing Goal: Work with the treatment team to assess caregiver capability 05/20/20191930 by Estrella Ford RN Outcome: Progressing 05/20/20191929 by Estrella Ford RN Outcome: Progressing Problem: Pain Goal: Patient's pain/discomfort is manageable 05/20/20191930 by Estrella Ford RN Outcome: Progressing 05/20/20191929 by Estrella Ford RN Outcome: Progressing * PT Treatment Note - Kylie Sanchez PT - 05/20/2019 9:03 AM CST PT Treatment Patient Name: Jules Mitchell Patient Birthdate: 1945 Patient Subjective Report - Pt seated in w/c upon entry. Ready for therapy. Pain Assessment Pain Context: Therapy Assessment Prior to Treatment (05/20/19902) Pain Assessment: None/denies pain (05/20/19902) Bed Mobility: Performed on bed and Short sit to - from supine Bed Mobility Level of Assistance: Minimal Assistance Bed Mobility Comment: Pt requires greatly increased time to complete mobility and Min A for LE management (for time) to fully position into bed. Surface: Even surface and Indoor Assistive Device: RW Distance (feet): 141 Gait Analysis: 1 x 141' with RW and varying consistent close supervision throughout ambulation (emerging distant supervision intermittently). Pt cued prior to ambulation for focus on upright posture and maintaining appropriate distance from DEONNA to RW. Pt demonstrates slightly improved upright posture, however with increased distance and fatigue, pt requires increased cues for maintaining appropriate distance to RW. Seated rest break upon completion. Rails: Bilateral Stairs Level of Assistance: Close Supervision and Contact Guard Stairs Height of Step: 6-inch Stair Analysis: Up/down 1 x 8 steps at 6 inches each and close supervision throughout up/down when leading up with R LE (anterior approach) and down with L LE (posterior approach). Pt then changes technique to leading up with L LE first (anterior approach) and CGA and down with anterior approach leading down with L LE and CGA. Seated rest break upon completion due to increased fatigue. Number of Steps: 8 Transfer to 1: Stand Transfer from 1: Wheelchair Technique 1: Sit to stand and Stand to sit Transfer Level of Assistance 1: Distant Supervision and Minimal Verbal Cues Trials/Comments1: Min verbal cues for initiation, however is able to perform with distant supervision and use of arm rests for force production. Min verbal cues intermittently for reminders to use armrests for safety. Transfer to 2: Car Transfer from 2: Wheelchair (w/c parked 5 feet away to simulate walking up to car) Technique 2: Stand pivot and Ambulatory Transfer Level of Assistance 2: Close Supervision and Moderate Verbal Cues Trials/Comments 2: Pt requires greatly increased time to complete mobility, especially for L LE management. With use of rigid leg hospital laboratory technician + verbal cues for scooting laterally towards middle of car prior to management of L LE, pt is able to lift L LE into vehicle. Pt requires seated rest break upon completion for greatly increased time prior to return to w/c. Pt notes increased discomfort and crepitus in L LE during return to w/c, however is able to complete with close supervision throughout and increased time. Therapeutic Activities and Neuromuscular Re-education: DYNAMIC STANDING BALANCE: - Pt performs blocked practice of standing with no UE support/1 UE support from RW in order to stand and sort through clothing (reaching outside DEONNA) as well as fully donning suspenders (performed while standing with no UE support and distant supervision. Seated rest break upon completion. IP REHAB PT SPECIAL TESTS AND OUTCOMES: Special Test and Outcome Measures: Timed Up and Go 05/20/19 0900 Timed Up and Go (TUG) Trial 1 (in seconds) 94.39 (with RW and close to distant sup) Trial 2 (in seconds) 74.48 Trial 3 (in seconds) 72.41 Average of three trials 80.43 PT Treatment Outcomes:: Patient is progressing toward STG, Patient tolerated treatment well, Pain limiting patient progress, Compensatory strategies effectively used, Cues needed for safety, Improving overall functional endurance noted, Improved ambulation performance, Improved transfer ability noted and Safety device reapplied PT Summary:: Patient [...] Evaluation and Follow-up Pain Reassessment: No pain (05/20/19 1033) Nursing notified of patient's pain assessment: Not indicated - pain score 2 or less (05/20/19 1033) Therapy Minutes Individual Concurrent Co-Treat Time In : 902 Time Out: 1035 Total Time with Patient (Min): 92 min Missed Minutes : 2 KYLIE SANCHEZ PT 05/20/2019 * [facility]OR[facility] Treatment Note - Radha Easley - 05/20/2019 8:15 AM CST Speech Language Pathologist Treatment Patient Name: Jules Mitchell Patient Birthdate: 1945 Patient Subjective Report - Patient was upright in wheelchair in room. Pain Assessment Pain Context: Therapy Assessment Prior to Treatment (05/20/19814) Pain Score: 0 - No pain (05/20/19 08) Cognitive Communication: Functional problem solving, Pragmatics and social interaction, Compensatory techniques for cognition, Short-term memory, Verbal organization, Verbal problem solving, Speed ofprocessing, Immediate memory and Basic attention Dysarthria: Articulation, Speech intelligibility and Compensatory techniques for dysarthria Patient/Caregiver Training: Cognitive Communication Disorder, Cognitive strategies, Communication strategies, Therapy goals and treatment plan, Completed with patient and Dysarthria ST Narrative:: Patient recalled 3/3 facts from the previous session with moderate prompting using association memory strategy. He recalled words from a multiple choice list presented verbally after aten second delay with distractions present using the [employer] Therapy application with 60% accuracy. He benefited from increased processing time when selecting an answer and min cues from therapist as well correct/incorrect feedback after each selection and identification of words previously selected. As the activity progressed and offered additional multiple choice options, patient demonstrated increased errors. Patient demonstrated additional difficulty with delayed recall with auditory distractions rather than visual distractions. He demonstrated continued 60% intelligibility during open ended conversation from the previous session and was educated on slowing speech during communication breakdowns on single words or phrases to assist conversation partner and he verbalized understanding. Intelligibility in context of activities increased to 85% from 80% in the previous session. Overall, patient was pleasant and cooperative but continued to display difficulty with recall. He benefited from lack of auditory distractions during 10 second delayed recall task and mod cues to useassociation strategies from delayed recall from previous day. He displayed decreased intelligibility in conversation without context. Continue ST. Patient remained up sitting in chair at end of session with pelvic positioning belt on, chair alarmin place, call light and phone within reach. ST Session Outcomes: Tolerated treatment well, Strategies effectively used, Moderate cues during session, Progressing toward STGs and Patient/family education progressing ST Summary Plan of Care: Continue with current plan of care Pain Evaluation and Follow-up Pain Reassessment: No pain (05/20/19 0900) Therapy Minutes Individual Concurrent Co-Treat Time In : 0815 Time Out: 0900 Total Time with Patient (Min): 45 min Missed Minutes : 0 RADHA EASLEY 05/20/2019 Cosigned by Paz Linn CCC-[facility] FLOORHAND at 05/20/2019 11:26 AM GLOVE TAGGER * OT Treatment Note - Carlos Caba OT - 05/20/2019 7:30 AM CST Occupational Therapy Treatment Patient Name: Jules Mitchell Patient Birthdate: 1945 Pain Assessment Pain Context: Therapy Assessment Prior to Treatment (05/20/19729) Pain Assessment: None/denies pain (05/20/19729) ADL Status: Eating: Modified Independent Eating Where Assessed: Edge of bed Feeding Comments: Pt requires significantly increased time for feeding however is able to manage and open all necessary items. Bathing: Close Supervision Bathing Where Assessed: Standing in shower and Seated in shower Bathing Comments: Pt able to complete 10/10 steps with close supervision for standing balance and verbal cues for safety during sit <> stand. Toileting: Close Supervision Toileting Where Assessed: Toilet Toilet Comments: Pt able to complete 3/3 steps with supervision for dynamic balance and verbal cuesfor safe use of assistive device. Dressing Upper Body: Setup Upper Body Dressing Where Assessed: Sitting edge of bed Upper Body Dressing Comments: Pt able to don/doff shirt with setup assistance. Dressing Lower Body: Close Supervision Lower Body Dressing Where Assessed: Sitting in chair and Standing Lower Body Dressing Comments: Pt able to complete all steps of LB dressing with increased time, setup assistance and close supervision for standing balance. Toilet Transfer: Close Supervision Toilet Transfer to: Standard toilet Toilet Transfer From: Bed Toilet Transfer Technique: Ambulatory Toilet Transfers Comments: Pt requires increased time for ambulation to and from bed and verbal cues for safe use of assistive device. Pt reminded of visual cue on walker and use to assist with carryover throughout the day. Shower Transfer: Close Supervision Shower Transfer to: Shower seat with back Shower Transfer From: Toilet Shower Transfer Technique: Ambulatory Shower Transfers Comments: Pt requires supervision due to impaired balance. Bed, Chair, Wheelchair Transfer: Close Supervision Bed/Chair Transfer to: Stand Bed/Chair Transfer from: Bed Bed/Chair Transfer Technique: Ambulatory Bed/Chair Transfer Comments: Pt requires close supervision due to impaired balance. Pt demonstratesimproved carryover of safe hand placement with use of visual reminder on walker. ADL Training: ADL Training Narrative: Pt demos progress with functional mobility and independence throughout ADL's. Pt continues to requires cues for initiation and safety. Treatment, Outcomes and Plan: OT Narrative:: Pt participates well in therapy on this date. Patient remained up sitting in chair at end of session with pelvic positioning belt on, chair alarm in place, call light and phone within reach. OT Treatment Outcomes:: Safety device reapplied and Patient tolerated treatment well OT Summary Plan of Care: Continue with current plan of care Pain Evaluation and Follow-up Pain Reassessment: No pain (05/20/19 0814) Nursing notified of patient's pain assessment: Not indicated - pain score 2 or less (05/20/19 0814) Therapy Minutes Individual Concurrent Co-Treat Time In : 0730 Time Out: 0815 Total Time with Patient (Min): 45 min Missed Minutes : 0 CARLOS CABA OT 05/20/2019 * Plan of Care - Brii Thurman RN - 05/20/2019 12:39 AM CST Problem: Infection Goal: Absence of infection and prevention of transmission during hospitalization Outcome: Progressing Problem: Fall Safety Goal: Free from fall injury Outcome: Progressing Problem: Knowledge Deficit Goal: Patient and/or family demonstrate readiness to learn Outcome: Progressing Goal: Patient and/or family verbalizes understanding of education, and/or performs desired skill Outcome: Progressing Problem: Knowledge Deficit Goal: Patient/family/caregiver demonstrates understanding of disease process, treatment plan, medications, and discharge instructions Outcome: Progressing Problem: Potential for Compromised Skin Integrity Goal: Skin integrity is maintained or improved Outcome: Progressing Goal: Nutritional status is improving Outcome: Progressing Problem: Pain Goal: Patient's pain/discomfort is manageable Outcome: Progressing * Plan of Care - Tara Alberts RD - 05/19/2019 2:31 PM CST Problem: Inadequate or Predicted Suboptimal Energy or Oral Intake Description Related to:poor appetite, diet order As Evidenced By: pt report and po intake 50%; and diet order is written for 1800 calories Goal: Clinical Nutrition Goal Outcome: Progressing Flowsheets Taken 05/13/2019 1431 Primary Goal: Adequate Meals and Snack/Oral Nutrition Supplement Intake Primary Indicator/Monitor: po intake 50-100% Secondary Goal: Weight Gain Secondary Indicator/Monitor: 1/2-2# per week Taken 05/19/2019 1429 Primary Goal Progress: Ongoing Secondary Goal Progress: Ongoing Intervention: Medical Nutrition Therapy Interventions Flowsheets Taken 05/13/2019 1431 Meals and Snacks: Modify texture/distribution/nutrients (increase calories, and cut meats) Supplements: Commercial beverage/Oral Nutrition Supplement Taken 05/19/2019 1429 Coordination of Nutrition Care: Continue to Monitor * Team Conference - ALLY Zarco - 05/19/2019 12:41 PM CST Team Conference Note Date: 05/19/2019 Time: 12:41 PM Patient Name: Jules Mitchell Date of : 1945 Sex: Male Room/Bed: 204/204-1 Primary Insurance: Medicare Part B Admit Date/Time: 05/11/2019 7:19 PM Patient Active Problem List Diagnosis Date Noted ??? Hyperglycemia 05/14/2019 ??? Retention of urine [...] in adult 04/30/2019 Team Members Present: Attendees: Florencia Moulton MD, ALLY Zarco, Kylie Sanchez PT, Carlos Caba, OT, Paz Chu, [facility], Estrella Ford RN Case Manager in Attendance: ALMAZ NOE SW Patient/Family Present: Patient Present: No Patient's Family Present: No Anticipated Discharge 05/28/2019 Discharge Plan: Discharge Destination Type: Own Home Back-up Discharge Destination: Own Home Potential Barriers to Return to Prior Living (Use comments to be specific): Caregiver limitations;Capacity for self care;Mobility challenge;Home modification challenge;Architectural/environmental barrier(s);DME issue;Potential need for skills/non-skilled services;Potential need for 24 hour care Suicide Prevention: No Concerns identified at this time Medications: Current Facility-Administered Medications: ??? acetaminophen (TYLENOL) tablet 325 mg, 325 mg, PO/Per Tube, Q6H PRN, Misty Hathaway MD, 325 mgat 05/11/192320 ??? allopurinol (ZYLOPRIM) tablet 100 mg, 100 mg, Oral, Once a day, Misty Hathaway MD, 100 mg at 05/19/19 0852 ??? atorvastatin (LIPITOR) tablet 20 mg, 20 mg, Oral, Once a day, Misty Hathaway MD, 20 mg at 05/19/19 0853 ??? bisacodyl (DULCOLAX) suppository 10 mg, 10 mg, Rectal, Once, Lucdawood Elliottl, [employer] COMP[employer] ??? dextrose (GLUTOSE) 40 % oral gel 15 g, 15 g, Oral, PRN, Manoj Elliottl, [employer] COMP[employer] ??? dextrose 5 % and sodium chloride 0.45 % infusion, 50 mL/hr, Intravenous, PRN, Manoj Elliottl, [employer] ??? dextrose 50 % IV solution 25 g, 25 g, Intravenous, PRN, Lucija Sadl, [employer] ??? Diclofenac Sodium (VOLTAREN) 1 % gel 2 g, 2 g, Topical, 2 times per day, Manoj Morrison, [employer] COMP[employer], 2 g at 05/19/19 0855 ??? docusate sodium (COLACE) capsule 100 mg, 100 mg, Oral, Once a day, Misty Hathaway MD, 100 mg at 05/19/19 0853 ??? donepezil (ARICEPT) tablet 10 mg, 10 mg, Oral, Nightly, Misty Hathaway MD, 10 mg at 05/18/192035 ??? epoetin ashly-epbx (RETACRIT) 4,000 Units, 4,000 Units, Subcutaneous, T--Sat w/Dialysis, Froy Donato MD, 4,000 Units at 05/18/19 1436 ??? folic acid (FOLVITE) tablet 1 mg, 1 mg, Oral, Once a day, Misty Hathaway MD, 1 mg at 05/19/19 0853 ??? furosemide (LASIX) tablet 80 mg, 80 mg, Oral, BID DIURETIC, Manoj Morrison NP, 80 mg at 05/18/19 1747 ??? glucagon (human recombinant) injection 1 mg, 1 mg, Intramuscular, PRN, Manoj Morrison NP ??? heparin (porcine) injection 1,000 Units, 1,000 Units, Intracatheter, Once per day on Fri Sat, Debi Wetzel RN ??? heparin (porcine) injection 1,000 Units, 1,000 Units, Intracatheter, Once per day on Fri Sat, Debi Wetzel RN ??? heparin (porcine) injection 2,000 Units, 2,000 Units, Intravenous, During Dialysis, Debi Wetzel RN ??? heparin (porcine) injection 4,300 Units, 4,300 Units, Intravenous, Once per day on Fri,Florencia Moulton MD, 4,300 Units at 05/18/19 1437 ? ? insulin lispro (HumaLOG) injection 0-6 Units, 0-6 Units, Subcutaneous, AC & HS, 2 Units at 05/16/19 1746 AND POCT glucose, , , AC & HS, Manoj Morrison NP ??? iron sucrose (VENOFER) injection 200 mg, 200 mg, Intravenous, During Dialysis, Carmen Donato MD, 200 mg at 05/18/19 1438 ??? lidocaine (LIDOCARE) 4 % patch 2 patch, 2 patch, Transdermal, Once a day, Manoj Morrison NP, 2 patch at 05/19/19 0853 ??? oxyCODONE-acetaminophen (PERCOCET) 5-325 MG 1 tablet, 1 tablet, Oral, Q6H PRN, Misty Hathaway MD, 1 tablet at 05/13/19 1753 ??? polyethylene glycol (MIRALAX) packet 17 g, 17 g, Oral, Daily PRN, Mike Zamora MD, 17 g at 05/19/19 0852 ??? tamsulosin (FLOMAX) 24 hr capsule 0.4 mg, 0.4 mg, Oral, Nightly, Misty Hathaway MD, 0.4 mg at 05/18/192035 Pharmacy: Nursing Team Conference: Bladder Devices: Adult brief Bladder Interventions: Post void residual monitoring Bowel Continent: Continent Bowel Devices: Adult brief Bowel Interventions: Laxative Pain: Patient denies pain Pain Education Provided: Patient Emotional/Spiritual Pain Interventions: Emotional Support Opiate Use Anticipated After Discharge: No Nutrition Intake: Oral Nutrition Level of Assistance: Supervision/Set-up Respiratory O2 Delivery System: None Skin Intact: None Skin Interventions: Weight shift/Turned respositioned every 2 hours;Pressure relief surface Wound Rx: None Safety Status: Good safety awareness;Follows instructions Safety Interventions: Education;Supervised activity;Performed rounding Cognitive Orientation: Person;Place;Date Quality of Sleep: Restful Patient-Family barriers to learning: None Is patient on dialysis?: Hemodialysis PT Weekly Progress Note (Notes from 05/12/19 through 05/19/19) PT Weekly Progress Note by Kylie Sanchez PT at 05/18/2019 4:00 PM Author: Kylie Sanchez PT Service: Therapy Author Type: Physical Therapist Filed: 05/18/2019 4:23 PM Date of Service: 05/18/2019 Status: Signed Unix Architect: Kylie Sanchez PT (Physical Therapist) PT Weekly Progress Note Patient Name: Jules Mitchell Patient Birthdate: 1945 PT CURRENT FUNCTIONAL STATUS: PT Current Functional Status: PT Current Functional Status: Mr. Jules Mitchell'nolvia current functional mobility is as follows. TRANSFERS: Sit to and from stand with close supervision (imrpoved from minimal assistance). Stand pivot transfer with close supervision (improved from minimal assistance). Car transfer with minimal assistance (no change). GAIT: Ambulates up to 160 feet with rolling walker and close supervision (improved from 31 feet with total assistance (minimal assistance + close wheelchair follow) using rolling walker). Ambulates across uneven surface with rolling walker and close supervision (improved from UNSAFE) ELEVATIONS Ascends/descends 12 steps at 6 inches each with bilateral handrail support and contact guard assistance (improved from 4 steps at 6 inches each with bilateral handrail support and minimal assistance). Ascends/descends 6 inch curb step (see above). WHEELCHAIR ASSESSMENT: propels manual wheelchair 88 feet with minimal assistance prior to requiringtotal assistance for all remaining mobility (improved from 54 feet with bilateral upper extremitiesand minimal assistance). 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 Standardized Assessment: 2 Minute Walk Test: 6 feet with no assistive device (prior level) and total assistance (no change: to be reassessed). Timed Up and Go: 65 seconds with rolling walker. ?? He presents with the below listed impairments. He would benefit from skilled intensive inpatient rehabilitation services at this time in order to further improve upon the below listed impairments andprepare for return to home. Factors in Goal Achievement: Facilitating Factors: Improved functional mobility Barriers: Pain, Strength limitations, Balance deficits, ROM limitations, Diminished endurance, Decreased patient attendance and participation, Decreased patient compliance, Decreased safety awareness, Medical Complications and Decreased patient understanding Date Last Assessed: 05/18/2019 DME Recommendations Common Therapy DME: Other (comment)(ongoing assessment) CARE Score Mario: 6: Independent. Chester provides no assistance with tasks. A device may or may not have been used. 5: Set-up or clean-up assistance. Chester sets up or cleans up, but does not assist with tasks. Chester may have assisted prior to or following the activity. 4: Supervision or touching assistance. Chester provides verbal cues or touching/steadying or contactguard assistance. Assistance may be provided throughout the activity or intermittently. 3: Partial/moderate assistance. Chester does less than half the effort. Chester lifts, holds, or supports trunk or limbs, but provides less than half the effort. 2: Substantial/maximal assistance. Chester does more than half the effort. Chester lifts or holds trunk or limbs, and provides more than half the effort. 1: Dependent. Chester does all of the effort, or the [...] due to medical condition or safety concerns Custodial Goals: Goal Status on Admission Current Status Car Transfer LTG: Independent(Pt to perform car transfer mobility with LRAD and Mod I to demonstrate safe mobility in/out of the car to return to home. ) Car Transfer - CARE Score: 88 (05/12/191452 : Kylie Sanchez PT) Car Transfer - CARE Score: 3 (05/18/191548) Walk 10 Feet - CARE Score: 88 (05/12/191452 : Kylie Sanchez PT) Walk 10 Feet - CARE Score: 4 (05/18/191548) Walk 50 Feet with Two Turns LTG: Independent(Pt to ambulate up to 50 feet with LRAD and Mod I in order to demonstrate safe mobility within the home alone throughout the day. ) Walk 50 Feet with Two Turns - CARE Score: 88 (05/12/191452 : Kylie Sanchez PT) Walk 50 Feet with Two Turns - CARE Score: 4 (05/18/191548) Walk 150 Feet - CARE Score: 88 (05/12/191452 : Kylie Sanchez PT) Walk 150 Feet - CARE Score: 4 (05/18/191548) Walking 10 Feet on Uneven Surfaces - CARE Score: 88 (05/12/191452 : Kylie Sanchez PT) [id number] Feet on Uneven Surfaces - CARE Score: 4 (05/18/191548) 1 Step (Curb) - CARE Score: 3 (05/12/191452 : Kylie Sanchez PT) 1 Step (Curb) - CARE Score: 4(05/18/191548) 4 Steps - CARE Score: 3 (05/12/191452 : Kylie Sanchez, PT) 4 Steps - CARE Score: 4 (05/18/191548) 12 Steps LTG: Independent(Pt to ascend/descend at least 12 steps in order to demonstrate safe mobility in/out of the home (6 steps) with 1 HR and LRAD and Mod I. ) 12 Steps - CARE Score: 88 ( : Kylie Sanchez PT) 12 Steps - CARE Score: 4 (05/18/191548) Picking Up Object - CARE Score: 88 (05/12/191452 : Kylie A Sanchez, PT) Picking Up Object - CAREScore: 4 (05/18/191548) Wheel 50 Feet with Two Turns - CARE Score: 3 (05/12/19 145 : Kylie Sanchez PT) Wheel 50 Feet with Two Turns - CARE Score: 3 (05/18/191548) Wheel 150 Feet - CARE Score: 2 (05/12/19 145 : Kylie Sanchez PT) Wheel 150 Feet - CARE Score:2 (05/18/191548) PT Other Custodial Goals Most Recent Value Other PT Custodial Goals Other Goals - Custodial Custodial 1 Filed on: 05/12/20191458 Other Elementary Education Tutor Goal 1 Pt to perform 2MWT with a distance of at least 40 feet in order to demonstrate improved overall mobility. Filed on: 05/12/20191458 Other Custodial Goal 1 Status Established Filed on: 05/12/20191458 Expected Achievement Date 06/02/19 Filed on: 05/12/20191458 PT Short Term Goal 1: Focus: Car Transfer Details: Pt to perform car transfer with LRAD and CGA. Expected Achievement Date: 05/25/2019 Goal Status: Partially Achieved PT Short Term Goal 2: Focus: Walking Details: Pt to ambulate up to 20 feet with LRAD and Min A. (Met 05/18/19). Pt to ambulate up to 150 feet with LRAD and distant supervision and no verbal cues. Expected Achievement Date: 05/25/2019 Status: Established PT Short Term Goal 3: Focus: Steps Details: Pt to ascends/descend at least 6 steps at 6 inches each and 1 HR with Min A. Expected Achievement Date: 05/25/2019 Status: Partially Achieved PT Short Term Goal 4: Focus: Picking up Object Details: Pt to perform picking up an object with LRAD and CGA (Met 05/18/19). Pt to perform picking up an object with LRAD and Mod I. Expected Achievement Date: 05/25/2019 Goal Status: Established PT Short Term Goal 5: Focus: Other Details: Pt to perform TUG. (Met 05/18/19) Pt to perform TUG with a time of less than 55 seconds with LRAD and distant supervision. Expected Achievement Date: 05/25/2019 Goal Status: Established KYLIE SANCHEZ, PT 05/18/2019 OT Weekly Progress Note (Notes from 05/12/19 through 05/19/19) OT Weekly Progress Note by Carlos Caba OT at 05/19/2019 9:35 AM Author: Carlos Caba OT Service: Therapy Author Type: Occupational Therapist Filed: 05/19/2019 9:39 AM Date of Service: 05/19/2019 Status: Signed Unix Architect: Carlos Caba OT (Occupational Therapist) Occupational Therapy Weekly Progress Note Patient Name: Jules Mitchell Patient Birthdate: 1945 OT Current Functional Status: Jules Mitchell is completing the following: EATING: with modified independence ORAL HYGIENE:with setup assist/supervision (verbal cues to initiate task) TOILETING:with minimal assistance BATHING:with minimal assistance UPPER BODY DRESSING:with setup assistance LOWER BODY DRESSING:with setup assistance/supervision FOOTWEAR:with setup assist/supervision ROLL RIGHT/LEFT:with supervision SIT TO LYING:with supervision with verbal cues for use of leg hospital laboratory technician LYING TO SIT:with supervision with verbal cues for use of leg hospital laboratory technician SIT TO STAND:with supervision and use of RW CHAIR/BED TO CHAIR TRANSFER:with supervision and use of RW TOILET TRANSFER:with supervision with use of RW Jules Mitchell is demonstrating progress with toileting, dressing, and functional transfers. In addition, Mr. Mitchell has demonstrated improved dynamic balance, improved standing tolerance and improved overall functional endurance/functional reaching. Jules Mitchell continues to present with impaired safety awareness, impaired problem-solving, decreased cognition, impaired endurance, impaired strength, and pain limiting independence with ADLs and functional transfers. Jules Mitchell would benefit from continued intensive OT to address continued barriers for safe return to prior level of function. Facilitating Factors in Goal Achievement: Improved functional mobility, Improved strength, Improvedsafety awareness and Use of compensatory strategies Barriers to Goal Achievement: Balance deficits, Diminished endurance, Strength limitations, Cognitive deficits, Decreased patient understanding, Pain and Decreased safety awareness Date Last Assessed: 05/19/2019 Patient needs assistance with the following activities: Activities of daily living, Sitting balance, Reaching, Positioning, Use of bathroom equipment and Going out in the community CARE Score Mario: 6: Independent. Chester provides no assistance with tasks. A device may or may not have been used. 5: Set-up or clean-up assistance. Chester sets up or cleans up, but does not assist with tasks. Chester may have assisted prior to or following the activity. 4: Supervision or touching assistance. Chester provides verbal cues or touching/steadying or contactguard assistance. Assistance may be provided throughout the activity or intermittently. 3: Partial/moderate assistance. Chester does less than half the effort. Chester lifts, holds, or supports trunk or limbs, but provides less than half the effort. 2: Substantial/maximal assistance. Chester does more than half the effort. Chester lifts or holds trunk or limbs, and provides more than half the effort. 1: Dependent. Chester does all of the effort, or the [...] due to medical condition or safety concerns Elementary Education Tutor Goals: Goal Status on Admission Current Status Eating LTG: Independent Eating - CARE Score: 6 (05/12/19 1141 : Carlos Caba OT) Eating - CARE Score: 6 (05/19/19932) Oral Hygiene LTG: Independent Oral Hygiene - CARE Score: 10 (05/12/19 114 : Carlos Caba OT) Oral Hygiene - CARE Score: 5 (05/19/19932) Toileting Hygiene LTG: Independent Toileting Hygiene - CARE Score: 3 (05/12/19 1141 : Carlos Caba OT) Toileting Hygiene - CARE Score: 3 (05/19/19932) Shower/Bathe Self LTG: Supervision or touching assistance Shower/Bathe Self - CARE Score: 3 (05/12/19 1141 : Carlos Caba OT) Shower/Bathe Self - CARE Score: 3 (05/19/19932) Upper Body Dressing LTG: Independent Upper Body Dressing - CARE Score: 5 (05/12/19 1141 : Carlos Caba OT) Upper Body Dressing - CARE Score: 5 (05/19/19932) Lower Body Dressing LTG: Supervision or touching assistance Lower Body Dressing - CARE Score: 2 (05/12/19 1141 : Carlos Caba OT) Lower Body Dressing - CARE Score: 4 (05/19/19932) Putting On/Taking Off Footwear - CARE Score: 3 (05/12/19 1141 : Carlos Caba OT) Putting On/Taking Off Footwear - CARE Score: 4 (05/19/19932) Roll Left and Right - CARE Score: 3 (05/12/19 1141 : Carlos Caba OT) Roll Left and Right - CAREScore: 4 (05/19/19932) Sit to Lying - CARE Score: 3 (05/12/19 114 : Carlos Caba OT) Sit to Lying - CARE Score: 4 (05/19/19932) Lying to Sitting on Side of Bed - CARE Score: 3 (05/12/19 114 : Carlos Caba OT) Lying to Sitting on Side of Bed - CARE Score: 4 (05/19/19932) Sit to Stand - CARE Score: 3 (05/12/19 114 : Carlos Caba OT) Sit to Stand - CARE Score: 4 (05/19/19932) Chair/Nwj-nj-Aqcej Transfer LTG: Independent Chair/Zjx-ck-Vwllr Transfer - CARE Score: 3 (05/12/19 114 : Carlos Caba OT) Chair/Zoh-pe-Jnybc Transfer - CARE Score: 4 (05/19/19932) Toilet Transfer LTG: Independent Toilet Transfer - CARE Score: 3 (05/12/19 1141 : Carlos Caba OT) Toilet Transfer - CARE Score: 4 (05/19/19932) OT Short Term Goal 1: Focus: Toileting Hygiene Details: Pt will complete toileting with minimal assistance using AE, AD as needed: ACHIEVED Pt will complete toileting with SBA using AE, AD as needed Expected Achievement Date: 05/26/2019 Goal Status: Established OT Short Term Goal 2: Focus: Shower/Bathe Details: Pt will complete bathing with contact guard assistance using shower chair/AE as needed Expected Achievement Date: 05/26/2019 Goal Status: Not Achieved OT Short Term Goal 3: Focus: Upper Body Dressing Details: Pt will complete UB dressing with modified independence Expected Achievement Date: 05/26/2019 Goal Status: Not Achieved OT Short Term Goal 4: Focus: Lower Body Dressing Details: Pt will complete LB dressing with minimal assistance using AE, AD as needed: ACHIEVED Pt will complete LB dressing with SBA using AE, AD as needed: ACHIEVED Pt will complete LB dressing with modified independence using AE, AD as needed Expected Achievement Date: 05/26/2019 Goal Status: Established OT Short Term Goal 5: Focus: Chair/Bed Transfer Details: Pt will complete bed/chair transfer with CGA using assistive device as needed: ACHIEVED Pt will complete bed/chair transfer with modified independence using AD as needed Expected Achievement Date: 05/26/2019 Goal Status: Not Achieved OT Short Term Goal 6: Focus: Toilet Transfer Details: Pt will complete toilet transfer with CGA using AD as needed: ACHIEVED Pt will complete toilet transfer with modified independence using AD, DME as needed Expected Achievement Date: 05/26/2019 Goal Status: Established CARLOS CABA OT 05/19/2019 [facility] [employer] Weekly Progress Note (Notes from 05/12/19 through 05/19/19) [facility] Weekly Progress Note by Radha Easley at 05/18/2019 2:08 PM Author: Radha Easley Service: Therapy Author Type: Supervised Student Filed: 05/18/2019 2:29 PM Date of Service: 05/18/2019 Status: Signed Unix Architect: Radha Easley (Supervised Student ) Cosigner: [facility] at 05/18/2019 3:50 PM Speech Language Pathologist Weekly Progress Note Patient Name: Jules Mitchell Patient Birthdate: 1945 [facility] Current Functional Status: Mr. Vicente's current functional status is as follows: DIET: Regular with thin liquids. ??No dysphagia reported or suspected upon admission. ??Pt. Is edentulous and does not have dentures. ??Patient denies any difficulty with swallowing. Patient reports he is able to 'gum' any food he desires to eat without restrictions. Pt. Took all his pills at one time with water with no difficulty COMPREHENSION: Supervision with basic daily needs - He benefited from repetition and slowed speech rate and understood statements regarding basic, routine issues EXPRESSION: Minimal assistance for basic daily naming, word retrieval deficits, fair speech intelligibility with speech intelligibility being impaired due to fast rate and endentulous SOCIAL INTERACTION: Supervision - additional prompts for increased engagement, participation, eye contact PROBLEM SOLVING: Minimal assistance - Patient requires prompting or redirection to problem solve appropriately some of the time MEMORY: Minimal assistance - Patient presents with cognitive deficits in areas of recall and orientation requiring min cues. PROGRESS: Patient with progress on orientation and use of association memory strategy for delayed recall on information from previous day. Patient progress on functional problem solving tasks including problem identification, effect of problem, and generating solutions but benefits from mod cues. These impairments limit ability to participate in functional communication and daily routines safely and independently ??Pt would benefit from 45-90 minutes daily in individualized and/or group setting, 5 days/week focusing on increased safety and independence. Plan of care to include compe nsatory strategy retraining, cognitive retraining, and patient/family education. Facilitating Factors in Goal Achievement: Support of other(s) and Progress to date Barriers to Goal Achievement: Communication deficits and Other (comment) (decreased memory) Date Last Assessed: 05/18/2019 Elementary Education Tutor Goals: Goal Current Progress towards Goal [facility] [employer] Custodial Goal 1: Expression Level of Assistance to Meet Elementary Education Tutor Goal 1: Standby (less than 10%) [facility] Elementary Education Tutor Goal 1 Details: Client will be 90% intelligible in conversation with an unfamiliar listener to improve speech intelligibility at home and in the community. [employer] Elementary Education Tutor Goal 1 Expected Achievement Date: 05/26/19 [employer] Elementary Education Tutor Goal 2: Additional Cognition Level of Assistance to Meet Custodial Goal 2: Standby (less than 10%) [facility] [employer] Elementary Education Tutor Goal 2 Details: Patient will improve cognitive linguistic skills to function with Lisa at home and in the community. [facility] [employer] Elementary Education Tutor Goal 2 Expected Achievement Date: 05/26/19 Additional Goal Status: N/A [facility] Short Term Goal 1: Focus: Expression Level of Assistance to Meet Short Term Goal: Min assist (10-24%) Details: Client will utilize speech intelligibility strategies produce words in sentences with 90%%acc. Mod I, with consistency to improve speech intelligibility for daily tasks. Expected Achievement Date: 05/25/2019 Goal Status: Not Achieved [facility] Short Term Goal 2: Focus: Additional Cognition Level of Assistance to Meet Short Term Goal: Standby (less than 10%) Details: Pt. Will respond to orientation log question with a score of of 25/30. Expected Achievement Date: 05/25/2019 Goal Status: Not Achieved [facility] Short Term Goal 3: Focus: Additional Cognition Level of Assistance to Meet Short Term Goal: Standby (less than 10%) Details: Patient will recall 12 items in a concrete category in 60'' Jade., with consistency, to improve verbal fluency and thought organization for daily activities. Expected Achievement Date: 05/25/2019 Goal Status: Not Achieved [facility] Short Term Goal 4: Focus: Additional Cognition Level of Assistance to Meet Short Term Goal: Standby (less than 10%) Details: Patient will complete basic attention to detail tasks with 85% acc. Mod I, to improve attention for daily activities Expected Achievement Date: 05/25/2019 Goal Status: Not Achieved [facility] Short Term Goal 5: Focus: Memory Level of Assistance to Meet Short Term Goal: Min assist (10-24%) Details: Patient will utilize memory strategies to perform delayed recall tasks (5-15 minute delay)with 80% acc. Mod I, to improve memory for daily tasks. Expected Achievement Date: 05/25/2019 Goal Status: Not Achieved [facility] Short Term Goal 6: Focus: Additional Cognition Level of Assistance to Meet Short Term Goal: Standby (less than 10%) Details: Patient will complete functional problem solving tasks with 85% acc. to improve organization, reasoning, and planning for daily activities. Expected Achievement Date: 05/25/2019 Goal Status: Not Achieved RADHA EASLEY 05/18/2019 Respiratory Team Conference: Nutrition Team Conference: Dietary Orders (From admission, onward) Start Ordered 05/13/19 1700 Nutritional supplement Nepro 2 times daily at breakfast and dinner End/Expires: Until Specified Question: Select Supplement: Answer: Nepro 05/13/19 1352 05/13/19 1700 Diet message 3 times daily with meals Comments: Cut meats End/Expires: Until Specified 05/13/19 1352 05/13/19 1352 Adult Diet Therapeutic Diet; Renal with dialysis, Carb Controlled; 5 Carb/75gm/meal (2000 calories); Regular Texture (7 Regular); All Liquids (0 Thin) Diet effective now End/Expires: Until Specified Question Answer Comment Diet Type: Therapeutic Diet Therapeutic Diet: Renal with dialysis Therapeutic Diet: Carb Controlled Carbohydrate Controlled: 5 Carb/75gm/meal (2000 calories) Diet Texture: Regular Texture (7 Regular) Liquid Consistency All Liquids (0 Thin) Place order in third republican system. Done 05/13/19 1352 Height: 5' 10 (177.8 cm) Admit Weight: 136 lb 1.6 oz (61.7 kg) Current Weight: 129 lb 11.2 oz (58.8 kg) Body mass index is 18.61 kg/m??. Calorie Count: Nutrition Intake: Oral Nutrition Risk: Patient at nutrition risk Nutrition Recommendations: Encourage po intake; offer snacks; continue to weigh pt Nutrition Update: 0-75% po intake of renal, carb controlled diet with nepro bid; weights recorded from 128 - 136# Wound: Wound Rx: None Medical: dialysis. Hypotension. Cognitive/speech: cognitive decreased memory and safety awareness. Physical: supervision for transfers. Supervision for lower body dressing. SBA for toileting. Poor initiation and problem solving. Supervision with ambulation. Stairs CGA to supervision. D/C plan/needs: ADD 05/28. Walker. HH recommended v DI. Cosigned by Florencia Moulton MD at 05/19/2019 11:59 PM GLOVE TAGGER Associated attestation - Florencia Moulton MD - 05/20/2019 12:59 AM EST A team conference was held on 05/19 and included members of the multidisciplinary team identified inthe attendance section of this note. Issues related to Mr. Mitchell's status include; ESRD HD Encephalopathy Gait disorder Mr. Frankss progress toward rehabilitation goals, impediments to attaining these goals, and associated revisions to the treatment plans and goals were discussed by the team. Details of this multidisciplinary process are included below. Issues of particular significance at this time regarding Mr. Mitchell's progress towards rehabilitation goals and treatment plan include: Cognitive disorder Bladder retention improved As discussed during this team conference, I concur with the decisions set forth by the members of the multidisciplinary team. Mr. Mitchell continues to require frequent physician visits and 24 hours per day acute rehabilitation nursing care in order to meet medical needs and progress toward the achievement of the rehabilitation goals. CANDI 05/28 Family teaching vs FLORENCIA Grove MD 05/19/2019 11:58 PM * PT Treatment Note - Eugenia Robles PT - 05/19/2019 10:30 AM CST PT Treatment Patient Name: Jules Mitchell Patient Birthdate: 1945 Patient Subjective Report - Agreeable to PT session Pain Assessment Pain Context: Therapy Assessment During Treatment (05/19/19 1200) Pain Assessment: None/denies pain (05/19/19 1030) Pain Interventions Education Provided: Patient (05/19/19 1200) Non-Pharmacologic Pain Interventions: Exercise/Activity, Position/Reposition, Rest, Distractions (05/19/19 1200) Emotional/Spiritual Pain Interventions: Emotional Support (05/19/19 1200) Surface: Even surface Assistive Device: RW Ambulation Level of Assistance: Contact Guard and Close Supervision Distance (feet): 300 Gait Analysis: Ambulates with WW (assist of therapist for clothing due to no belt to maintain pantsposition) x 300' x 1, x 150' x 2 with SBA of one demonstrating decreased step length and foot clearance LLE, tendency for flexed trunk and to push WW too far ahead. Rails: Bilateral Assistive Device: No device Stairs Level of Assistance: Close Supervision Stairs Height of Step: 6-inch Stair Analysis: Step to pattern (LLE is sore) Number of Steps: 7 Assistive Device: RW Curb Level of Assistance: Contact Guard and Minimal Assistance Curb Height: 6 inch Curb Comment: 2-4-6 curb with cues for positioning and sequencing Assistive Device: RW Ramp Level of Assistance: Contact Guard and Close Supervision Transfer to 1: Sit Transfer from 1: Stand Technique 1: Sit to stand Transfer Level of Assistance 1: Close Supervision Transfer to 2: Stand Transfer from 2: Car Technique 2: Sit to stand Transfer Level of Assistance 2: Close Supervision Trials/Comments 2: Use of stool for intermediate step to enter car Seated Position: Balloon volley while seated (patient utilizes LUE only due to R shoulder discomfort- ACO COORDINATOR fall); SCIFIT while in SCIFIT seat x 5 minutes at 1.0 R BU/LE RLE: Full weight-bearing LLE: Full weight-bearing RUE: Full weight-bearing LUE: Full weight-bearing Activity Type: Standing Activity Endurance: Fair Compromised ability to maintain sitting: Yes Activity comment: Seated hand hygiene with SBA. IP REHAB PT SPECIAL TESTS AND OUTCOMES: Special Test and Outcome Measures: 2 Minute walk test 85 feet; 6MWT- noted elevator ride limits ability to assess. PT Treatment Outcomes:: Cues needed for safety and Patient tolerated treatment well PT Summary:: Patient remained up sitting in chair at end of session with pelvic positioning belt on, chair alarm in place, call light and phone within reach. Focus session: car transfers, distance ambulation, elevation- steps, curbs, ramp; SCIFIT BU/LE. PT Summary Plan of Care: Continue with current plan of care Pain Evaluation and Follow-up Response to Therapy Interventions: Improved activity tolerance (05/19/19 1200) Pain Reassessment: 3(R shoulder sore (ACO COORDINATOR fall)) (05/19/19 1200) Nursing notified of patient's pain assessment: Primary Nurse (05/19/19 1200) Therapy Minutes Individual Concurrent Co-Treat Time In : 1030 Time Out: 1200 Total Time with Patient (Min): 90 min Missed Minutes : 0 EUGENIA ROBLES, PT 05/19/2019 * [facility] FLOOR[facility] Treatment Note - Radha Easley - 05/19/2019 9:45 AM CST Speech Language Pathologist Treatment Patient Name: Jules Mitchell Patient Birthdate: 1945 Patient Subjective Report - Patient was awake upright in wheelchair in room. Pain Assessment Pain Score: 0 - No pain (05/19/19 0945) Cognitive Communication: Functional problem solving, Pragmatics and social interaction, Word finding, Verbal organization, Short-term memory, Compensatory techniques for cognition, Speed of processing and Verbal problem solving Dysarthria: Articulation, Speech intelligibility, Conversational speech and Compensatory techniquesfor dysarthria Patient/Caregiver Training: Cognitive Communication Disorder, Cognitive strategies, Communication strategies, Completed with patient, Therapy goals and treatment plan and Dysarthria ST Narrative:: Patient recalled 2/3 novel facts presented at the beginning of the session immediately with mod cues. He recalled 3/3 of the same facts with max cues after a 5 minute time delay. He was provided with education on reasoning for use of memory strategies, specifically association to increase recall and he verbalized understanding. Patient named 5 items of 5 different categories with 80% accuracy with mod cues to target divergent naming. He displayed difficulty with basic attention to the task and required cues to recall what he previously stated and for which category he was generating items. Patient was 80% intelligible in sentences within context of activities, but was 60% intelligible in open ended conversation without context with mod cues. Upon cueing patient to repeat utterances he appeared frustrated by misunderstanding but successfully used compensatory strategies (spelling the word, gesturing) to communicate message. He generated solutions to verbal functional problem solving tasks with 100% accuracy with mod cues displaying increase from previous session 90% accuracy with visual stimuli. Overall, patient was pleasant and cooperative but still presents with deficits in cognition and intelligibility in sentences and open ended conversation. Continue ST. Patient remained up sitting in chair at end of session with pelvic positioning belt on, chair alarmin place, call light and phone within reach. ST Session Outcomes: Tolerated treatment well, Strategies effectively used, Moderate cues during session, Patient/family education progressing and Progressing toward STGs ST Summary Plan of Care: Continue with current plan of care Pain Evaluation and Follow-up Pain Reassessment: No pain (05/19/19 1030) Therapy Minutes Individual Concurrent Co-Treat Time In : 0945 Time Out: 1030 Total Time with Patient (Min): 45 min Missed Minutes : 0 RADHA EASLEY 05/19/2019 Cosigned by Paz Linn CCC-PULLING UNIT FLOORHAND at 05/19/2019 3:24 PM GLOVE TAGGER * OT Weekly Progress Note - Carlos Caba OT - 05/19/2019 9:35 AM GLOVE TAGGER Occupational Therapy Weekly Progress Note Patient Name: Jules Mitchell Patient Birthdate: 1945 OT Current Functional Status: Jules Mitchell is completing the following: EATING: with modified independence ORAL HYGIENE:with setup assist/supervision (verbal cues to initiate task) TOILETING:with minimal assistance BATHING:with minimal assistance UPPER BODY DRESSING:with setup assistance LOWER BODY DRESSING:with setup assistance/supervision FOOTWEAR:with setup assist/supervision ROLL RIGHT/LEFT:with supervision SIT TO LYING:with supervision with verbal cues for use of leg hospital laboratory technician LYING TO SIT:with supervision with verbal cues for use of leg hospital laboratory technician SIT TO STAND:with supervision and use of RW CHAIR/BED TO CHAIR TRANSFER:with supervision and use of RW TOILET TRANSFER:with supervision with use of RW Jules Mitchell is demonstrating progress with toileting, dressing, and functional transfers. In addition, Mr. Mitchell has demonstrated improved dynamic balance, improved standing tolerance and improved overall functional endurance/functional reaching. Jules Mitchell continues to present with impaired safety awareness, impaired problem-solving, decreased cognition, impaired endurance, impaired strength, and pain limiting independence with ADLs and functional transfers. Jules Mitchell would benefit from continued intensive OT to address continued barriers for safe return to prior level of function. Facilitating Factors in Goal Achievement: Improved functional mobility, Improved strength, Improvedsafety awareness and Use of compensatory strategies Barriers to Goal Achievement: Balance deficits, Diminished endurance, Strength limitations, Cognitive deficits, Decreased patient understanding, Pain and Decreased safety awareness Date Last Assessed: 05/19/2019 Patient needs assistance with the following activities: Activities of daily living, Sitting balance, Reaching, Positioning, Use of bathroom equipment and Going out in the community [facility] Mario: 6: Independent. Chester provides no assistance with tasks. A device may or may not have been used. 5: Set-up or clean-up assistance. Chester sets up or cleans up, but does not assist with tasks. Chester may have assisted prior to or following the activity. 4: Supervision or touching assistance. Chester provides verbal cues or touching/steadying or contactguard assistance. Assistance may be provided throughout the activity or intermittently. 3: Partial/moderate assistance. Chester does less than half the effort. Chester lifts, holds, or supports trunk or limbs, but provides less than half the effort. 2: Substantial/maximal assistance. Chester does more than half the effort. Chester lifts or holds trunk or limbs, and provides more than half the effort. 1: Dependent. Chester does all of the effort, or the [...] due to medical condition or safety concerns Elementary Education Tutor Goals: Goal Status on Admission Current Status Eating LTG: Independent Eating - CARE Score: 6 (05/12/19 1141 : Carlos Caba OT) Eating - CARE Score: 6 (05/19/19932) Oral Hygiene LTG: Independent Oral Hygiene - CARE Score: 10 (05/12/19 1141 : Carlos Caba OT) Oral Hygiene - CARE Score: 5 (05/19/19932) Toileting Hygiene LTG: Independent Toileting Hygiene - CARE Score: 3 (05/12/19 1141 : Carlos Caba OT) Toileting Hygiene - CARE Score: 3 (05/19/19932) Shower/Bathe Self LTG: Supervision or touching assistance Shower/Bathe Self - CARE Score: 3 (05/12/19 114 : Carlos Caba OT) Shower/Bathe Self - CARE Score: 3 (05/19/19932) Upper Body Dressing LTG: Independent Upper Body Dressing - CARE Score: 5 (05/12/19 1141 : Carlos Caba OT) Upper Body Dressing - CARE Score: 5 (05/19/19932) Lower Body Dressing LTG: Supervision or touching assistance Lower Body Dressing - CARE Score: 2 (05/12/19 114 : Carlos Caba OT) Lower Body Dressing - CARE Score: 4 (05/19/19932) Putting On/Taking Off Footwear - CARE Score: 3 (05/12/19 114 : Carlos Caba OT) Putting On/Taking Off Footwear - CARE Score: 4 (05/19/19932) Roll Left and Right - CARE Score: 3 (05/12/19 114 : Carlos Caba OT) Roll Left and Right - CAREScore: 4 (05/19/19932) Sit to Lying - CARE Score: 3 (05/12/19 114 : Carlos Caba OT) Sit to Lying - CARE Score: 4 (05/19/19932) Lying to Sitting on Side of Bed - CARE Score: 3 (05/12/19 114 : Carlos Caba OT) Lying to Sitting on Side of Bed - CARE Score: 4 (05/19/19932) Sit to Stand - CARE Score: 3 (05/12/19 1141 : Carlos Caba OT) Sit to Stand - CARE Score: 4 (05/19/19932) Chair/Mke-ds-Pttqq Transfer LTG: Independent Chair/Tuj-wf-Cicxx Transfer - CARE Score: 3 (05/12/19 1141 : Carlos Caba OT) Chair/Wdi-xz-Lqrri Transfer - CARE Score: 4 (05/19/19932) Toilet Transfer LTG: Independent Toilet Transfer - CARE Score: 3 (05/12/19 1141 : Carlos Caba OT) Toilet Transfer - CARE Score: 4 (05/19/19932) OT Short Term Goal 1: Focus: Toileting Hygiene Details: Pt will complete toileting with minimal assistance using AE, AD as needed: ACHIEVED Pt will complete toileting with SBA using AE, AD as needed Expected Achievement Date: 05/26/2019 Goal Status: Established OT Short Term Goal 2: Focus: Shower/Bathe Details: Pt will complete bathing with contact guard assistance using shower chair/AE as needed Expected Achievement Date: 05/26/2019 Goal Status: Not Achieved OT Short Term Goal 3: Focus: Upper Body Dressing Details: Pt will complete UB dressing with modified independence Expected Achievement Date: 05/26/2019 Goal Status: Not Achieved OT Short Term Goal 4: Focus: Lower Body Dressing Details: Pt will complete LB dressing with minimal assistance using AE, AD as needed: ACHIEVED Pt will complete LB dressing with SBA using AE, AD as needed: ACHIEVED Pt will complete LB dressing with modified independence using AE, AD as needed Expected Achievement Date: 05/26/2019 Goal Status: Established OT Short Term Goal 5: Focus: Chair/Bed Transfer Details: Pt will complete bed/chair transfer with CGA using assistive device as needed: ACHIEVED Pt will complete bed/chair transfer with modified independence using AD as needed Expected Achievement Date: 05/26/2019 Goal Status: Not Achieved OT Short Term Goal 6: Focus: Toilet Transfer Details: Pt will complete toilet transfer with CGA using AD as needed: ACHIEVED Pt will complete toilet transfer with modified independence using AD, DME as needed Expected Achievement Date: 05/26/2019 Goal Status: Established CARLOS CABA OT 05/19/2019 * OT Treatment Note - Geoff James OT - 05/19/2019 8:59 AM CST Occupational Therapy Treatment Patient Name: Jules Mitchell Patient Birthdate: 1945 Patient Subjective Report - Pain Assessment Pain Context: Therapy Assessment Prior to Treatment (05/19/19858) Pain Assessment: None/denies pain (05/19/19858) Short blessed test: ADL Status: Toilet Transfer: Close Supervision Toilet Transfer to: Standard toilet with rails Toilet Transfer From: Wheelchair Toilet Transfer Technique: Ambulatory Toilet Transfers Comments: Required direct verbal cue for safe hand placement. 05/19/19 0900 O-[place] [address] 3 Name of [facility] 3 Month 3 Date 0 Year 0 Day of the Week 0 Clock time 2 Etiology - Event 0 Pathology deficits 0 O-Log Score 14 OT Therapeutic Activity: Therapeutic Activity: Placed visual cue on walker to remind pt to push up from chair and reach backwhen sitting. Pt completed transfer from w/c to arm chair and to the bed 2x requiring verbal cues 75% of the time for correct hand placement. Pt able to retrieve clothes from closet and transport to w/c and then back to closet with distant supervision due to safety concern for impaired standing balance, no verbal cues needed for safety with walker. Pt able to collect clothing item off the floor with supervision. Treatment, Outcomes and Plan: OT Narrative:: Pt continues require supervision due to impaired safety awareness, and is having difficulty learning new tasks due to impaired short term memory. Pt would benefit from continued adl retraining to improve safety awareness. Patient remained up sitting in chair at end of session with pelvic positioning belt on, chair alarm in place, call light and phone within reach. OT Treatment Outcomes:: Patient tolerated treatment well and Patient is progressing toward STG(s) Pain Evaluation and Follow-up Pain Reassessment: No pain (05/19/19943) Nursing notified of patient's pain assessment: Not indicated - pain score 2 or less (05/19/19943) Therapy Minutes Individual Concurrent Co-Treat Time In : 858 Time Out: 943 Total Time with Patient (Min): 45 min Missed Minutes : 0 GEOFF JAMES, OT 05/19/2019 * Plan of Care - Jo Ann Ricks RN - 05/18/2019 10:52 PM CST Problem: Infection Goal: Absence of infection and [...] facility with appropriate resources Outcome: Progressing Goal: manager supply will develop a plan to 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 burden and 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 in role Outcome: Progressing Problem: Knowledge Deficit Goal: Patient/family/caregiver [...] is Maintained or Improved Outcome: Progressing Problem: Case Management Discharge Goals Goal: Identify patient's discharge goals Outcome: Progressing Goal: Coordinate Safe Discharge Plan Outcome: Progressing Goal: Work with the treatment team to assess caregiver capability Outcome: Progressing Problem: Pain Goal: Patient's pain/discomfort is manageable Outcome: Progressing * PT Weekly Progress Note - Kylie Sanchez PT - 05/18/2019 4:00 PM GLOVE TAGGER PT Weekly Progress Note Patient Name: Jules Mitchell Patient Birthdate: 1945 PT CURRENT FUNCTIONAL STATUS: PT Current Functional Status: PT Current Functional Status: Mr. Jules Mitchell'nolvia current functional mobility is as follows. TRANSFERS: Sit to and from stand with close supervision (imrpoved from minimal assistance). Stand pivot transfer with close supervision (improved from minimal assistance). Car transfer with minimal assistance (no change). GAIT: Ambulates up to 160 feet with rolling walker and close supervision (improved from 31 feet with total assistance (minimal assistance + close wheelchair follow) using rolling walker). Ambulates across uneven surface with rolling walker and close supervision (improved from UNSAFE) ELEVATIONS Ascends/descends 12 steps at 6 inches each with bilateral handrail support and contact guard assistance (improved from 4 steps at 6 inches each with bilateral handrail support and minimal assistance). Ascends/descends 6 inch curb step (see above). WHEELCHAIR ASSESSMENT: propels manual wheelchair 88 feet with minimal assistance prior to requiringtotal assistance for all remaining mobility (improved from 54 feet with bilateral upper extremitiesand minimal assistance). 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 Standardized Assessment: 2 Minute Walk Test: 6 feet with no assistive device (prior level) and total assistance (no change: to be reassessed). Timed Up and Go: 65 seconds with rolling walker. ?? He presents with the below listed impairments. He would benefit from skilled intensive inpatient rehabilitation services at this time in order to further improve upon the below listed impairments andprepare for return to home. Factors in Goal Achievement: Facilitating Factors: Improved functional mobility Barriers: Pain, Strength limitations, Balance deficits, ROM limitations, Diminished endurance, Decreased patient attendance and participation, Decreased patient compliance, Decreased safety awareness, Medical Complications and Decreased patient understanding Date Last Assessed: 05/18/2019 DME Recommendations Common Therapy DME: Other (comment)(ongoing assessment) CARE Score Mario: 6: Independent. Chester provides no assistance with tasks. A device may or may not have been used. 5: Set-up or clean-up assistance. Chester sets up or cleans up, but does not assist with tasks. Chester may have assisted prior to or following the activity. 4: Supervision or touching assistance. Chester provides verbal cues or touching/steadying or contactguard assistance. Assistance may be provided throughout the activity or intermittently. 3: Partial/moderate assistance. Chester does less than half the effort. Chester lifts, holds, or supports trunk or limbs, but provides less than half the effort. 2: Substantial/maximal assistance. Chester does more than half the effort. Chester lifts or holds trunk or limbs, and provides more than half the effort. 1: Dependent. Chester does all of the effort, or the [...] due to medical condition or safety concerns Custodial Goals: Goal Status on Admission Current Status Car Transfer LTG: Independent(Pt to perform car transfer mobility with LRAD and Mod I to demonstrate safe mobility in/out of the car to return to home. ) Car Transfer - CARE Score: 88 (05/12/191452 : Kylie Sanchez PT) Car Transfer - CARE Score: 3 (05/18/191548) Walk 10 Feet - CARE Score: 88 (05/12/191452 : Kylie Sanchez PT) Walk 10 Feet - CARE Score: 4 (05/18/191548) Walk 50 Feet with Two Turns LTG: Independent(Pt to ambulate up to 50 feet with LRAD and Mod I in order to demonstrate safe mobility within the home alone throughout the day. ) Walk 50 Feet with Two Turns - CARE Score: 88 (05/12/191452 : Kylie Sanchez PT) Walk 50 Feet with Two Turns - CARE Score: 4 (05/18/191548) Walk 150 Feet - CARE Score: 88 (05/12/191452 : Kylie Sanchez PT) Walk 150 Feet - CARE Score: 4 (05/18/191548) Walking 10 Feet on Uneven Surfaces - CARE Score: 88 (05/12/191452 : Kylie Sanchez PT) [id number] Feet on Uneven Surfaces - CARE Score: 4 (05/18/191548) 1 Step (Curb) - CARE Score: 3 (05/12/191452 : Kylie Sanchez PT) 1 Step (Curb) - CARE Score: 4(05/18/191548) 4 Steps - CARE Score: 3 (05/12/191452 : Kylie Sanchez PT) 4 Steps - CARE Score: 4 (05/18/191548) 12 Steps LTG: Independent(Pt to ascend/descend at least 12 steps in order to demonstrate safe mobility in/out of the home (6 steps) with 1 HR and LRAD and Mod I. ) 12 Steps - CARE Score: 88 (05/12/201353 : Kylie Sanchez, PT) 12 Steps - CARE Score: 4 (05/18/191548) Picking Up Object - CARE Score: 88 (05/12/19 145 : Kylie Sanchez PT) Picking Up Object - CAREScore: 4 (05/18/191548) Wheel 50 Feet with Two Turns - CARE Score: 3 (05/12/191452 : Kylie Sanchez PT) Wheel 50 Feet with Two Turns - CARE Score: 3 (05/18/191548) Wheel 150 Feet - CARE Score: 2 (05/12/191452 : Kylie Sanchez PT) Wheel 150 Feet - CARE Score:2 (05/18/191548) PT Other Custodial Goals Most Recent Value Other PT Custodial Goals Other Goals - Elementary Education Tutor Custodial 1 Filed on: 05/12/20191458 Other Elementary Education Tutor Goal 1 Pt to perform 2MWT with a distance of at least 40 feet in order to demonstrate improved overall mobility. Filed on: 05/12/20191458 Other Custodial Goal 1 Status Established Filed on: 05/12/20191458 Expected Achievement Date 06/02/19 Filed on: 05/12/20191458 PT Short Term Goal 1: Focus: Car Transfer Details: Pt to perform car transfer with LRAD and CGA. Expected Achievement Date: 05/25/2019 Goal Status: Partially Achieved PT Short Term Goal 2: Focus: Walking Details: Pt to ambulate up to 20 feet with LRAD and Min A. (Met 05/18/19). Pt to ambulate up to 150 feet with LRAD and distant supervision and no verbal cues. Expected Achievement Date: 05/25/2019 Status: Established PT Short Term Goal 3: Focus: Steps Details: Pt to ascends/descend at least 6 steps at 6 inches each and 1 HR with Min A. Expected Achievement Date: 05/25/2019 Status: Partially Achieved PT Short Term Goal 4: Focus: Picking up Object Details: Pt to perform picking up an object with LRAD and CGA (Met 05/18/19). Pt to perform picking up an object with LRAD and Mod I. Expected Achievement Date: 05/25/2019 Goal Status: Established PT Short Term Goal 5: Focus: Other Details: Pt to perform TUG. (Met 05/18/19) Pt to perform TUG with a time of less than 55 seconds with LRAD and distant supervision. Expected Achievement Date: 05/25/2019 Goal Status: Established KYLIE SANCHEZ, PT 05/18/2019 * PULLING [facility]IT FLOORHAND Weekly Progress Note - Radha Easley - 05/18/2019 2:08 PM CST Speech Language Pathologist Weekly Progress Note Patient Name: Jules Mitchell Patient Birthdate: 1945 P[facility] FLOORHAND Current Functional Status: Mr. Vicente's current functional status is as follows: DIET: Regular with thin liquids. ??No dysphagia reported or suspected upon admission. ??Pt. Is edentulous and does not have dentures. ??Patient denies any difficulty with swallowing. Patient reports he is able to 'gum' any food he desires to eat without restrictions. Pt. Took all his pills at one time with water with no difficulty COMPREHENSION: Supervision with basic daily needs - He benefited from repetition and slowed speech rate and understood statements regarding basic, routine issues EXPRESSION: Minimal assistance for basic daily naming, word retrieval deficits, fair speech intelligibility with speech intelligibility being impaired due to fast rate and endentulous SOCIAL INTERACTION: Supervision - additional prompts for increased engagement, participation, eye contact PROBLEM SOLVING: Minimal assistance - Patient requires prompting or redirection to problem solve appropriately some of the time MEMORY: Minimal assistance - Patient presents with cognitive deficits in areas of recall and orientation requiring min cues. PROGRESS: Patient with progress on orientation and use of association memory strategy for delayed recall on information from previous day. Patient progress on functional problem solving tasks including problem identification, effect of problem, and generating solutions but benefits from mod cues. These impairments limit ability to participate in functional communication and daily routines safely and independently ??Pt would benefit from 45-90 minutes daily in individualized and/or group setting, 5 days/week focusing on increased safety and independence. Plan of care to include compe nsatory strategy retraining, cognitive retraining, and patient/family education. Facilitating Factors in Goal Achievement: Support of other(s) and Progress to date Barriers to Goal Achievement: Communication deficits and Other (comment) (decreased memory) Date Last Assessed: 05/18/2019 Custodial Goals: Goal Current Progress towards Goal PULLING [facility]IT FLOORHAND Elementary Education Tutor Goal 1: Expression Level of Assistance to Meet Custodial Goal 1: Standby (less than 10%) PULLING [facility]IT FLOORHAND Elementary Education Tutor Goal 1 Details: Client will be 90% intelligible in conversation with an unfamiliar listener to improve speech intelligibility at home and in the community. PULLING [facility]IT FLOORHAND Elementary Education Tutor Goal 1 Expected Achievement Date: 05/26/19 PULLING [facility]IT FLOORHAND Custodial Goal 2: Additional Cognition Level of Assistance to Meet Elementary Education Tutor Goal 2: Standby (less than 10%) P[facility]ING [facility] FLOORHAND Elementary Education Tutor Goal 2 Details: Patient will improve cognitive linguistic skills to function with Lisa at home and in the community. PULLING [facility]IT FLOORHAND Elementary Education Tutor Goal 2 Expected Achievement Date: 05/26/19 Additional Goal Status: N/A PULLING UNIT FLOORHAND Short Term Goal 1: Focus: Expression Level of Assistance to Meet Short Term Goal: Min assist (10-24%) Details: Client will utilize speech intelligibility strategies produce words in sentences with 90%%acc. Mod I, with consistency to improve speech intelligibility for daily tasks. Expected Achievement Date: 05/25/2019 Goal Status: Not Achieved PULLING UNIT FLOORHAND Short Term Goal 2: Focus: Additional Cognition Level of Assistance to Meet Short Term Goal: Standby (less than 10%) Details: Pt. Will respond to orientation log question with a score of of 25/30. Expected Achievement Date: 05/25/2019 Goal Status: Not Achieved PULLING UNIT FLOORHAND Short Term Goal 3: Focus: Additional Cognition Level of Assistance to Meet Short Term Goal: Standby (less than 10%) Details: Patient will recall 12 items in a concrete category in 60'' Jade., with consistency, to improve verbal fluency and thought organization for daily activities. Expected Achievement Date: 05/25/2019 Goal Status: Not Achieved PULLING [facility]IT FLOORHAND Short Term Goal 4: Focus: Additional Cognition Level of Assistance to Meet Short Term Goal: Standby (less than 10%) Details: Patient will complete basic attention to detail tasks with 85% acc. Mod I, to improve attention for daily activities Expected Achievement Date: 05/25/2019 Goal Status: Not Achieved [facility] FLOOR[facility] Short Term Goal 5: Focus: Memory Level of Assistance to Meet Short Term Goal: Min assist (10-24%) Details: Patient will utilize memory strategies to perform delayed recall tasks (5-15 minute delay)with 80% acc. Mod I, to improve memory for daily tasks. Expected Achievement Date: 05/25/2019 Goal Status: Not Achieved [facility] FLOORHAND Short Term Goal 6: Focus: Additional Cognition Level of Assistance to Meet Short Term Goal: Standby (less than 10%) Details: Patient will complete functional problem solving tasks with 85% acc. to improve organization, reasoning, and planning for daily activities. Expected Achievement Date: 05/25/2019 Goal Status: Not Achieved RADHA EASLEY 05/18/2019 Cosigned by LAILA QuinteroPULLING UNIT FLOORHAND at 05/18/2019 3:50 PM GLOVE TAGGER * [facility] FLOOR[facility] Treatment Note - Radha Easley - 05/18/2019 10:32 AM CST Speech Language Pathologist Treatment Patient Name: Jules Mitchell Patient Birthdate: 1945 Patient Subjective Report - Patient was in wheelchair in bathroom. Pain Assessment Pain Context: Therapy Assessment Prior to Treatment (05/18/19 1038) Pain Score: 9 (05/18/19 1038) Pain Type: Acute pain (05/18/19 1038) Pain Location: Shoulder (05/18/19 1038) Pain Orientation: Right (05/18/19 1038) Pain Frequency: Intermittent (05/18/19 1038) Pre-therapy pain intervention required: Patient expressed pain is tolerable/able to proceed (05/18/19 1038) Pain Interventions Non-Pharmacologic Pain Interventions: Distractions (05/18/19 1038) Cognitive Communication: Functional problem solving, Orientation, Pragmatics and social interaction, Compensatory techniques for cognition, Insight, Short-term memory, Verbal organization, Word finding and Verbal problem solving Dysarthria: Articulation, Speech intelligibility, Compensatory techniques for dysarthria and Conversational speech Patient/Caregiver Training: Cognitive Communication Disorder, Cognitive strategies, Completed with patient, Communication strategies and Therapy goals and treatment plan ST Narrative:: Patient recalled information from the previous session with 100% accuracy given mod cues using association strategies. Following a 30 minute delay, he recalled the information with consistent 100% accuracy and mod cues.Further education was provided about association strategies as a c ompensatory strategy for memory. Patient scored a 21/30 on the orientation log with orientation to city, kind of place, name of hospital, reason for hospital stay, and deficits and required multiple choice to be oriented to month, date, year, day of the week, and time. Patient named 5 items on divergent naming task independently when given one minute to generate types of animals. Patient identified safety hazards in a black and white visual scene with 80% accuracy and benefited from increased processing time to scan the scene. He identified hazards with 100% accuracy, explained the effect of the hazard with 80% accuracy, and generated a solution with 100% accuracy with mod cues. Patient spoke with impaired intelligibility and verbal organization in open-ended conversation. He had increased intelligibility on words and phrases within context. Overall, patient was cooperative and pleasant but continued to present with deficits in cognition relating to orientation and functional problem solving. He also presented with impaired intelligibility in open-ended conversation or without context. Patient was left sitting in chair at end of session with pelvic positioning belt on, chair alarm inplace, call light and phone within reach. ST Session Outcomes: Tolerated treatment well, Patient/family education progressing, Progressing toward STGs, Strategies effectively used and Moderate cues during session ST Summary Plan of Care: Continue with current plan of care Pain Evaluation and Follow-up Pain Reassessment: No pain (05/18/19 1115) Therapy Minutes Individual Concurrent Co-Treat Time In : 1032 Time Out: 1117 Total Time with Patient (Min): 45 min Missed Minutes : 0 RADHA EASLEY 05/18/2019 Cosigned by Paz Linn CCC-PULLING UNIT FLOORHAND at 05/18/2019 2:02 PM GLOVE TAGGER * PT Treatment Note - Eugenia Robles, PT - 05/18/2019 8:15 AM CST PT Treatment Patient Name: Jules Mitchell Patient Birthdate: 1945 Patient Subjective Report - Agreeable to PT session Pain Assessment Pain Context: Therapy Assessment During Treatment (05/18/19 0945) Pain Assessment: None/denies pain (05/18/19 0816) Pain Interventions Education Provided: Patient (05/18/1945) Non-Pharmacologic Pain Interventions: Rest, Position/Reposition (05/18/19944) Emotional/Spiritual Pain Interventions: Emotional Support (05/18/19944) Vital Signs Pulse: 67 (05/18/19854) Heart Rate Source: Monitor (05/18/19854) BP: 105/57 (05/18/19854) MAP (mmHg): 73 (05/18/19854) BP Location: Left arm (05/18/19854) BP Method: Automatic (05/18/19854) Patient Position: Sitting (05/18/19854) Oxygen Context: Sitting (05/18/19854) SpO2: 95 % (05/18/19854) O2 Device: None (Room air) (05/18/19854) Therapeutic Activities and Neuromuscular Re-education: Standing zacarias bag retrieval from floor: 3 with no adaptive equipment; 10 with videotape recording engineer PT Treatment Outcomes:: Cues needed for safety and Patient tolerated treatment well PT Summary:: Patient remained up sitting in chair at end of session with pelvic positioning belt on, chair alarm in place, call light and phone within reach. Focus session: functional mobility reassessment as follows: BED MOBILITY: supine/sit: minimal to moderate assist of one for body alignment, bilateral lower extremity positioning; rolling: with bed rail minimal assist of one; TRANSFERS: sit/stand: stand by assist requires increased time to perform; car simulator: minimal assist for LLE, increased time required to perform; wheelchair/bed: minimal assist of one and increased time required to perform; stand/toilet with grab bars: contact guard assist for safety; increased time and effort per patientto perform GAIT: ambulates with wheeled walker 160 feet with stand by assist of one demonstrating slow joao, decreased foot clearance and step length particularly with left lower extremity, tendency to push wheeled walker too far anteriorly. compliant surface: mat with wheeled walker with contact guard assist of one ELEVATIONS: curb: with wheeled walker: minimal assist with cues for ascend right lower extremity, decscend leftlower extremity; not re-evaluated steps: 8 steps with bilateral resting forearm onto handrails with stand by assist of one WC MOBILITY: NE occupational rehabilitation aide object from floor: with no adaptive equipment: contact guard assist with videotape recording engineer: with contact to stand by assist of one; 2 MWT: with wheeled walker: NE PT Summary Plan of Care: Continue with current plan of care Pain Evaluation and Follow-up Response to Therapy Interventions: Improved activity tolerance (05/18/19944) Pain Reassessment: No pain(denies pain however rubs L leg) (05/18/19944) Nursing notified of patient's pain assessment: Not indicated - pain score 2 or less (05/18/19944) Therapy Minutes Individual Concurrent Co-Treat Time In : 814 Time Out: 944 Total Time with Patient (Min): 90 min Missed Minutes : 0 EUGENIA ROBLES, PT 05/18/2019 * OT Treatment Note - Carlos Caba OT - 05/18/2019 7:30 AM CST Occupational Therapy Treatment Patient Name: Jules Mitchell Patient Birthdate: 1945 Pain Assessment Pain Context: Therapy Assessment Prior to Treatment (05/18/19729) Pain Assessment: None/denies pain (05/18/19729) ADL Status: Eating: Modified Independent Eating Where Assessed: Sitting at table Feeding Comments: Pt requires significantly increased time for feeding. Grooming: Setup and Close Supervision Grooming Comments: Pt able to complete face washing while seated at sink with increased time, setupassitance and verbal cues to initiate task. Toilet Comments: Pt denies need for toileting during session. Dressing Upper Body: Setup Upper Body Dressing Where Assessed: Standing Upper Body Dressing Comments: Pt dons button up shirt with significantly increased time while standing. Pt able to complete dynamic standing with close supervision for impaired balance and use of RW. Dressing Lower Body: Close Supervision Lower Body Dressing Where Assessed: Sitting edge of bed and Standing Lower Body Dressing Comments: Pt able to don socks and pants with close supervision due to impairedbalance and verbal cues to initiate task. Pt uses RW for stability during dynamic standing. Bed, Chair, Wheelchair Transfer: Close Supervision Bed/Chair Transfer to: Wheelchair Bed/Chair Transfer from: Bed Bed/Chair Transfer Technique: Ambulatory Assistive Devices Used: Walker Bed/Chair Transfer Comments: Pt able to transfer with close supervision due to impaired balance andcues for safe sequencing during sit <> stand and safe use of assistive device. Other I_ADL Training: Other I-ADL Training: Pt participates in home safety awareness training through use of home safety picture cards. Pt requires significantly increased time and moderate verbal cues to identify safety hazards/environment hazards throughout training. Pt participates to improve home safety upon discharge. Pt would benefit from further training to improve problem-solving and safety awareness throughout ADL's, IADL's, and home navigation/mobility. Bed Mobility: Performed on bed Bed Mobility Level of Assistance: Close Supervision Bed Mobility Comment: Pt progresses to SBA during supine > sit transfer with head of bed elevated with use of leg hospital laboratory technician. Following setup assist for leg hospital laboratory technician, pt demos good carryover from education in prior session - using leg hospital laboratory technician to maneuver LLE off EOB. Treatment, Outcomes and Plan: OT Narrative:: Pt participates well in therapy on this date. Pt with PT at conclusion of session with seatbelt and alarm fastened/activated. OT Treatment Outcomes:: Safety device reapplied and Patient tolerated treatment well OT Summary Plan of Care: Continue with current plan of care Pain Evaluation and Follow-up Pain Reassessment: No pain (05/18/19 0814) Nursing notified of patient's pain assessment: Not indicated - pain score 2 or less (05/18/19 0814) Therapy Minutes Individual Concurrent Co-Treat Time In : 0730 Time Out: 0815 Total Time with Patient (Min): 45 min Missed Minutes : 0 CARLOS CABA OT 05/18/2019 * Plan of Care - Kenrick Hays RN - 05/18/2019 2:00 AM CST Problem: Infection Goal: Absence of infection and [...] facility with appropriate resources Outcome: Progressing Goal: manager supply will develop a plan to 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 burden and 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 in role Outcome: Progressing Problem: Knowledge Deficit Goal: Patient/family/caregiver [...] is Maintained or Improved Outcome: Progressing Problem: Case Management Discharge Goals Goal: Identify patient's discharge goals Outcome: Progressing Goal: Coordinate Safe Discharge Plan Outcome: Progressing Goal: Work with the treatment team to assess caregiver capability Outcome: Progressing Problem: Pain Goal: Patient's pain/discomfort is manageable Outcome: Progressing * PT Treatment Note - Kylie Sanchez PT - 05/17/2019 9:00 AM CST PT Treatment Patient Name: Jules Mitchell Patient Birthdate: 1945 Patient Subjective Report - Pt seated in w/c upon entry. Ready for therapy. Pain Assessment Pain Context: Therapy Assessment Prior to Treatment (05/17/19 09) Pain Assessment: None/denies pain (05/17/19899) Surface: Even surface and Indoor Assistive Device: RW Ambulation Level of Assistance: Close Supervision and Minimal Verbal Cues Distance (feet): 100 Gait Analysis: 1 x 100' with RW and close supervision throughout. Pt requires increased time to complete mobility and demonstrates decreased stance time on L LE with significantly decreased step length, foot clearance, and decreased joao. Pt also demonstrates increased trunk flexion during ambulation with increased reliance on RW for UE support. Pt requires seated rest break upon completion due to increased fatigue. 1 x 80' with RW and ambulation over even and uneven surfaces (compliant foam mat). Pt requires increased time to complete with similar noted gait deviations as above, and similar level of physical assistance throughout. Pt also performs ambulation over even surface with added cues for big steps and fast steps. Pt demonstrates poor coordination of increased foot clearance, however with fast cues, pt demonstrates improved gait speed. Seated rest break upon completion due to increased fatigue. Rails: Bilateral Stairs Level of Assistance: Contact Guard and Minimal Verbal Cues Stairs Height of Step: 6-inch Stair Analysis: Pt ascends/descends 1 x 12 steps at 6 inches with B HR support (initially performedwith L HR x first 3 steps, however requires increased verbal cues and significantly increased time to complete). With 2 HR support, pt is able to perform with improved speed of mobility (although decreased speed overall). Intermittent cues for proper step sequencing (up with R LE and down leading with L LE). Anterior approach up and posterior approach down. Seated rest break upon completion. Number of Steps: 12 Transfer to 1: Stand Transfer from 1: Wheelchair Technique 1: Stand to sit and Sit to stand Transfer Level of Assistance 1: Close Supervision Trials/Comments1: Pt is able to recall/demonstrate reaching back to w/c prior to mobility. Increased time to complete. Wheelchair Level of Assistance: Minimal Assistance Distance Traveled in Wheelchair (feet): 88 Wheelchair Type: Manual Wheelchair cushion: Pressure relieving Surface: Even surface and Indoor Propulsion Method: Bilateral upper extremity Wheelchair Propulsion Level of Assistance: Minimal Assistance Wheelchair Analysis: Pt requires greatly increased time to complete due to decreased force production overall. Min A for steering and avoiding obstacles + initial visual cues on proper hand placement. Pt requires total assistance for all remaining w/c propulsion. Therapeutic Activities and Neuromuscular Re-education: PICKING UP OBJECT FROM FLOOR: - Pt performed 2 x reps of ambulation to/picking up object from floor with videotape recording engineer and use of RW for UE support. Trace Clerk in L UE (L handedness) and greatly increased time to complete. Pt requires increased time to ambulate up to each object (approximately 15 feet to each object) and for managing videotape recording engineer. Pt is able to machine operator picker and transfer to R UE with no UE support from RW and performs with closesupervision throughout. No LOB noted. Seated rest break upon completion. DYNAMIC WALKING BALANCE: - Pt performed 1 x 10 feet in each direction with cues for lateral sidestepping while using RW for UE support in order to practice functional mobility with RW in multiple directions if needing to ambulate through narrow spaces. Pt requires increased cues initially to sequence properly, however is able to complete with close supervision throughout. Seated rest break upon completion. Were respiratory Interventions provided?: No PT Treatment Outcomes:: Patient is progressing toward STG, Patient tolerated treatment well, Safetydevice reapplied, Compensatory strategies effectively used, Cues needed for safety, Improved ambulation performance, Improved balance and coordination, Improved safety awareness, Improved transfer ability noted and Improving overall [...] Evaluation and Follow-up Pain Reassessment: No pain (05/17/19 1027) Nursing notified of patient's pain assessment: Not indicated - pain score 2 or less (05/17/19 1027) Therapy Minutes Individual Concurrent Co-Treat Time In : 0900 Time Out: 1030 Total Time with Patient (Min): 90 min Missed Minutes : 0 KYLIE SANCHEZ, PT 05/17/2019 * [facility] FLOOR[facility] Treatment Note - Radha Easley - 05/17/2019 8:15 AM CST Speech Language Pathologist Treatment Patient Name: Jules Mitchell Patient Birthdate: 1945 Patient Subjective Report - Patient was awake in wheelchair in his room. Pain Assessment Pain Context: Therapy Assessment Prior to Treatment (05/17/19 0815) Pain Score: 0 - No pain (05/17/19 08) Cognitive Communication: Functional problem solving, Orientation, Pragmatics and social interaction, Compensatory techniques for cognition, Short-term memory, Basic attention, Verbal problem solving,Speed of processing, Verbal organization and Word finding Dysarthria: Articulation, Compensatory techniques for dysarthria, Conversational speech, Speech intelligibility, Sentences and Phrases Patient/Caregiver Training: Cognitive Communication Disorder, Completed with patient, Cognitive strategies, Therapy goals and treatment plan and Communication strategies ST Narrative:: Patient immediately recalled three facts with 100% accuracy and was educated on association memory strategies to recall information after time delay. Patient recalled three facts with 66% accuracy after a 3 minute delay with mod cues and 66% accuracy with max cues after a 30 minute delay. Patient answered problem solving questions from a visual scene with 60% accuracy, identified the effect of the problem with 100% accuracy, and identified the solution with 80% accuracy with min cues. He scored a 24/30 on the orientation log, an increase from previous 23/30, with orientation tocity, hospital, year, day of the week, reason for hospital stay, and deficits with min-mod cues to o rient to kind of place, month, time, and date. Overall, patient was pleasant and cooperative. Patient with decreased verbal organization for verbal communication on open-ended statements. His intelligibility increased from the previous week but he continues to present difficulties with cognition including memory and functional problem solving re lated to safety precautions. Continue ST. Patient remained up sitting in chair at end of session with pelvic positioning belt on, chair alarmin place, call light and phone within reach. ST Session Outcomes: Tolerated treatment well, Progressing toward STGs, Patient/family education progressing, Strategies effectively used and Maximal cues during session ST Summary Plan of Care: Continue with current plan of care Pain Evaluation and Follow-up Pain Reassessment: No pain (05/17/19814) Therapy Minutes Individual Concurrent Co-Treat Time In : 0815 Time Out: 0900 Total Time with Patient (Min): 45 min Missed Minutes : 0 RADHA EASLEY 05/17/2019 Cosigned by Paz Linn CCC-PULLING UNIT FLOORHAND at 05/17/2019 1:21 PM GLOVE TAGGER * OT Treatment Note - Carlos Caba OT - 05/17/2019 7:30 AM CST Occupational Therapy Treatment Patient Name: Jules Mitchell Patient Birthdate: 1945 Pain Assessment Pain Context: Therapy Assessment Prior to Treatment (05/17/19729) Pain Assessment: None/denies pain (05/17/19729) ADL Status: Eating: Modified Independent Eating Where Assessed: Sitting at table Feeding Comments: Pt able to open all feeding items with significantly increased time. Pt requires increased time for feeding. Bathing Comments: Pt offered shower this date. Pt declines reporting he already washed up in bed this morning. Dressing Upper Body: Setup Upper Body Dressing Where Assessed: Sitting edge of bed Upper Body Dressing Comments: Pt able to don/doff shirt with setup assistance and significantly increased time for buttoning shirt. Dressing Lower Body: Close Supervision Lower Body Dressing Where Assessed: Sitting edge of bed and Standing Lower Body Dressing Comments: Pt able to don pants with significantly increased time while seated EOB and use of RW for stability during dynamic standing. Pt provided with verbal cues for safe use ofRW. Bed, Chair, Wheelchair Transfer: Close Supervision Bed/Chair Transfer to: Wheelchair and Bed Bed/Chair Transfer from: Wheelchair and Bed Bed/Chair Transfer Technique: Ambulatory Assistive Devices Used: Walker Bed/Chair Transfer Comments: Pt requires significantly increased time and verbal/tactile cues for safe use of assistive device. Pt demos most difficulty with weight-bearing through LLE to advance RLEsecondary to pain. Pt able to complete with verbal cues and SBA only. Bed Mobility: Performed on bed Bed Mobility Level of Assistance: Close Supervision Bed Mobility Comment: Pt able to transfer from supine (with head of bed elevated) to EOB with significantly increased time for management of LLE. Pt issued and educated on leg hospital laboratory technician this date to maximize safety/independence during bed mobility and decrease pain with task. Pt requires minimal assist for short sit EOB > supine for managementof leg hospital laboratory technician/LLE however is able to transfer with less pain per pt report from supine to EOB. Pt demos potential to improve with use of leg hospital laboratory technician with further training. Treatment, Outcomes and Plan: OT Narrative:: Pt participates well in therapy on this date demonstrating improved carryover with visual/tactile demonstrations and cues. Patient remained up sitting in chair at end of session with pelvic positioning belt on, chair alarm in place, call light and phone within reach. OT Treatment Outcomes:: Safety device reapplied and Patient tolerated treatment well OT Summary Plan of Care: Continue with current plan of care Pain Evaluation and Follow-up Pain Reassessment: No pain (05/17/19813) Nursing notified of patient's pain assessment: Not indicated - pain score 2 or less (05/17/19813) Therapy Minutes Individual Concurrent Co-Treat Time In : 0730 Time Out: 0815 Total Time with Patient (Min): 45 min Missed Minutes : 0 CARLOS CABA OT 05/17/2019 * Plan of Care - Kenrick Hays RN - 05/16/2019 7:42 PM CST Problem: Infection Goal: Absence of infection and [...] facility with appropriate resources Outcome: Progressing Goal: manager supply will develop a plan to 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 burden and 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 in role Outcome: Progressing Problem: Knowledge Deficit Goal: Patient/family/caregiver [...] is Maintained or Improved Outcome: Progressing Problem: Case Management Discharge Goals Goal: Identify patient's discharge goals Outcome: Progressing Goal: Coordinate Safe Discharge Plan Outcome: Progressing Goal: Work with the treatment team to assess caregiver capability Outcome: Progressing Problem: Pain Goal: Patient's pain/discomfort is manageable Outcome: Progressing * PT Treatment Note - Oumou Guevara PTA - 05/16/2019 10:33 AM CST PT Treatment Patient Name: Jules Mitchell Patient Birthdate: 1945 Patient Subjective Report - I'm alright. Pain Assessment Pain Context: Therapy Assessment Prior to Treatment (05/16/191032) Pain Assessment: NRS 0-10 (05/16/191032) Pain Score: 6 (05/16/191032) Pain Type: Acute pain (05/16/191032) Pain Location: Leg (05/16/191032) Pain Orientation: Left (05/16/191032) Pain Radiating Towards: from knee to hip (05/16/191032) Pain Descriptors: Aching (05/16/191032) Pain Interventions Education Provided: Patient (05/16/191032) Non-Pharmacologic Pain Interventions: Distractions, Rest (01/19/20 1033) Emotional/Spiritual Pain Interventions: Empathetic Discussion (05/16/19 1033) Surface: Even surface, Indoor and Smooth surface Assistive Device: RW Ambulation Level of Assistance: Contact Guard Distance (feet): 85 Gait Analysis: Displays flexed posture with downward gaze, decreased step size with R<L, decreased clearance with R<L, decreased L stance time, and a slow joao. WC for safety. Cues to lift eyes and posture while taking bigger steps with R LE, minimal carry over. Extra time required. Rails: Bilateral Assistive Device: No device Stairs Level of Assistance: Contact Guard Stairs Height of Step: 6-inch Stair Analysis: Negotiated 4 steps x 2 with step-to pattern. Demonstration prior to patient's trial, and cues for proper leading LE. Requires extra time. Number of Steps: 8 Transfer to 1: Stand Transfer from 1: Wheelchair Technique 1: Sit to stand Transfer Level of Assistance 1: Contact Guard Trials/Comments1: With WW present, cues for hands on WC armrests. Activity Type: Standing Activity Endurance: Fair Activity comment: Requires frequent rest breaks. Therapeutic Activities and Neuromuscular Re-education: FUNCTIONAL ACTIVITY: 4 Step Taps x 10 reps per side (20 total) with B UE support on WW, CGA for safety, extra time to complete due to difficulty clearing step and delayed motor planning. PT Treatment Outcomes:: Patient tolerated treatment well PT Summary:: Focused on ambulation distance, negotiating stairs, and NMR. Extra time required for allacivities due to delay in motor planning. PT Summary Plan of Care: Continue with current plan of care Pain Evaluation and Follow-up Response to Therapy Interventions: Improved activity tolerance (05/16/19 1118) Pain Reassessment: 1 (05/16/19 111) Nursing notified of patient's pain assessment: Not indicated - pain score 2 or less (05/16/19 111) Therapy Minutes Individual Concurrent Co-Treat Time In : 1033 Time Out: 1118 Breaks/Pauses (Min): 0 mins Total Time with Patient (Min): 45 min Missed Minutes : 0 OUMOU GUEVARA PTA 05/16/2019 * OT Treatment Note - Maritza Merida OT - 05/16/2019 8:20 AM CST Occupational Therapy Treatment Patient Name: Jules Mitchell Patient Birthdate: 1945 Patient Subjective Report - Pain Assessment Pain Context: Therapy Assessment Prior to Treatment (05/16/19819) Pain Assessment: NRS 0-10(it's quiet now. ) (05/16/19819) Pain Score: 0 - No pain (05/16/19819) Vital Signs Pulse: 94 (05/16/19819) Heart Rate Source: Monitor (05/16/19819) BP: 102/63 (05/16/19819) MAP (mmHg): 76 (05/16/19819) BP Location: Left arm (05/16/19819) BP Method: Automatic (05/16/19819) Patient Position: Sitting (05/16/19819) Oxygen Context: Sitting (05/16/19819) SpO2: 98 % (05/16/19819) O2 Device: None (Room air) (05/16/19819) ADL Status: Toileting: Stand by assist Toileting Where Assessed: Toilet Toilet Comments: Pt demonstrated ability to complete 3/3 steps this date with stand by assistance for safety. Pt required extended time this date for toileting due to BM. Toilet Transfer: Close Supervision (stand by assistance ) Toilet Transfer to: Standard toilet with rails Toilet Transfer From: Wheelchair Toilet Transfer Technique: Stand pivot Toilet Transfers Comments: Pt completed stand pivot transfer to the toilet using grab bars with stand by assistance due to balance deficits. Other I_ADL Training: Other I-ADL Training: MED MGMT: Attempted simple 3 step med mgmt task using Everloop pill organizer.Pt demos difficulty opening pill containers and required maximal assistance for accurately placing pills according to directions. Transfer Training: Transfer Narrative: Pt required min cues for transfer technique and min assist for force productionto standing position without use of grab bars. Pt completed min assistance for SPT to mat for balance and force production however progressed to contact guard assistance with use of 2ww for back to wc. OT Therapeutic Activity: Therapeutic Exercise: Standing endurance: Pt tolerated standing at raised tabletop to increase endurance and balance for continued progress towards transfers and ADLs. Pt stood for a maximum of 10 minutes and 50 seconds however relied on tabletop for support by leaning on forearms. When encouraged to stand upright, pt demo decreased activity tolerance, requesting for seated rest break. Therapeutic Activity: Pt participated in functional mobility using 2ww to address balance and mobility for continued progress w/ ADLs and IADLs. Pt ambulated ~40 ft with close stand by assistance, wcfollow for safety and use of 2ww. Pt requested seated rest break d/t fatigue. Visual Perceptual: Pt participated in large word seated/standing to increase visual scanning and locating items in a busy background for continued progress w/ ADLs and IADLs. Pt required extended time and demonstrated increased difficulty with locating words in letter jumble. Coordination Training: Fine Motor: Pt completed theraputty with bead retrieval to increase independence with opening containers/pill boxes. Pt used medium soft theraputty with both hands to use pincer grasp to retrieve beads and place in container. Treatment, Outcomes and Plan: OT Narrative:: Pt tolerated skilled OT session well. Pt presents with decreased overall strength, balance and endurance and impaired cognition. Pt will benefit from further intensive occupational therapy to increase independence with ADLs and transfers for safe DC to least restrictive environment. OT Treatment Outcomes:: Patient tolerated treatment well and Patient is progressing toward STG(s) OT Summary Plan of Care: Continue with current plan of care Therapy Minutes Individual Concurrent Co-Treat Time In : 0820 Time Out: 0950 Total Time with Patient (Min): 90 min Missed Minutes : 0 MARITZA MERIDA OT 05/16/2019 * [facility] Treatment Note - [facility] - 05/16/2019 7:27 AM CST Speech Language Pathologist Treatment Patient Name: Jules Mitchell Patient Birthdate: 1945 Patient Subjective Report - Pt seen alert and in wheelchair; tolerating treatment well. Pain Assessment Pain Context: Therapy Assessment Prior to Treatment (05/16/19726) Pain Assessment: None/denies pain (05/16/19726) Cognitive Communication: Orientation, Basic attention, Short-term memory, Verbal organization and Verbal problem solving Patient/Caregiver Training: Cognitive Communication Disorder, Completed with patient, Therapy goalsand treatment plan and Cognitive strategies ST Narrative:: Orientation log completed at with minimal cues. Pt did not benefit from white board for improved orientation due to reports of decreased visual acuity to read date. Pt reporting year is 2015 or 2016 this date. Pt provided with correct orientation. Delayed recall of 3/3 pt selected grocery items following a 5 minute delay with moderate cues. Reviewed with pt compensatory memory strategies to facilitate accurate recall during functional scenarios. Pt utilized strategy of rehearsal and association with min-mod cues to aid in recall this date. Pt engaged in basic thought organization task at 70% accuracy with fluctuating amount of assist between min to mod. Pt demonstrates difficulty with adhering to constraints of task with frequent reminders required. Verbal problem solving/reasoning task completed at 75% accuracy with minimal cues. Pt at times answering questions with unrelated information, and requiring minimal repetitions and re-explanations for improved question comprehension for basic information. Recommend to continue current plan of care to address integrative language deficits. *Pt left in room with call light and phone within reach; seat belt in place and alarm active ST Session Outcomes: Minimal cues during session, Moderate cues during session, Progressing toward STGs and Patient/family education progressing ST Summary Plan of Care: Continue with current plan of care Pain Evaluation and Follow-up Pain Reassessment: No pain (05/16/19804) Nursing notified of patient's pain assessment: Not indicated - pain score 2 or less (05/16/19804) Therapy Minutes Individual Concurrent Co-Treat Time In : 726 Time Out: 0813 Breaks/Pauses (Min): 0 mins Total Time with Patient (Min): 46 min Missed Minutes : [address] 05/16/2019 * Plan of Care - Jo Ann Ricks RN - 05/15/2019 10:21 PM CST Problem: Infection Goal: Absence of infection and [...] facility with appropriate resources Outcome: Progressing Goal: manager supply will develop a plan to 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 burden and 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 in role Outcome: Progressing Problem: Knowledge Deficit Goal: Patient/family/caregiver [...] is Maintained or Improved Outcome: Progressing Problem: Case Management Discharge Goals Goal: Identify patient's discharge goals Outcome: Progressing Goal: Coordinate Safe Discharge Plan Outcome: Progressing Goal: Work with the treatment team to assess caregiver capability Outcome: Progressing Problem: Pain Goal: Patient's pain/discomfort is manageable Outcome: Progressing * Plan of Care - Liseth Traore RN - 05/15/2019 11:37 AM CST Problem: Infection Goal: Absence of infection and [...] facility with appropriate resources Outcome: Progressing Goal: manager supply will develop a plan to 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 burden and 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 in role Outcome: Progressing Problem: Knowledge Deficit Goal: Patient/family/caregiver [...] is Maintained or Improved Outcome: Progressing Problem: Case Management Discharge Goals Goal: Identify patient's discharge goals Outcome: Progressing Goal: Coordinate Safe Discharge Plan Outcome: Progressing Goal: Work with the treatment team to assess caregiver capability Outcome: Progressing Problem: Pain Goal: Patient's pain/discomfort is manageable Outcome: Progressing * Plan of Care - Jo Ann Ricks RN - 05/14/2019 10:05 PM CST Problem: Infection Goal: Absence of infection and [...] facility with appropriate resources Outcome: Progressing Goal: manager supply will develop a plan to 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 burden and 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 in role Outcome: Progressing Problem: Knowledge Deficit Goal: Patient/family/caregiver [...] is Maintained or Improved Outcome: Progressing Problem: Case Management Discharge Goals Goal: Identify patient's discharge goals Outcome: Progressing Goal: Coordinate Safe Discharge Plan Outcome: Progressing Goal: Work with the treatment team to assess caregiver capability Outcome: Progressing Problem: Pain Goal: Patient's pain/discomfort is manageable Outcome: Progressing * Plan of Care - Jessica Emerson RN - 05/14/2019 5:03 PM CST Problem: Infection Goal: Absence of infection and [...] facility with appropriate resources Outcome: Progressing Goal: manager supply will develop a plan to 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 burden and 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 in role Outcome: Progressing Problem: Knowledge Deficit Goal: Patient/family/caregiver [...] is Maintained or Improved Outcome: Progressing Problem: Case Management Discharge Goals Goal: Identify patient's discharge goals Outcome: Progressing Goal: Coordinate Safe Discharge Plan Outcome: Progressing Goal: Work with the treatment team to assess caregiver capability Outcome: Progressing Problem: Pain Goal: Patient's pain/discomfort is manageable Outcome: Progressing * [facility] Treatment Note - [facility] - 05/14/2019 12:33 PM CST Speech Language Pathologist Patient Name: Jules Mitchell Patient Birthdate: 1945 Prior to team conference, the Primary Therapist Paz Linn and I have communicated regarding current patient status, progress towards goals, and modifications to plan of care, as appropriate. ROBERT HAMMOND ST 05/14/2019 * Team Conference - ALLY Zarco - 05/14/2019 12:31 PM CST Team Conference Note Date: 05/14/2019 Time: 12:56 PM Patient Name: Jules Mitchell Date of : 1945 Sex: Male Room/Bed: 204/204-1 Primary Insurance: Medicare Part B Admit Date/Time: 05/11/2019 7:19 PM Patient Active Problem List Diagnosis Date Noted ??? Retention of urine 05/12/2019 ??? Diastolic [...] in adult 04/30/2019 Team Members Present: Attendees: Florencai Moulton MD, ALLY Zarco, Kylie Sanchez PT, Carlos Caba OT, Paz Chu, [facility], Other (comment)(Pako Diaz RN) Paralegal Instructor in Attendance: ALMAZ NOE SW Patient/Family Present: Patient Present: No Patient's Family Present: No Anticipated Discharge 05/28/2019 Discharge Plan: Discharge Destination Type: Own Home Back-up Discharge Destination: Own Home Potential Barriers to Return to Prior Living (Use comments to be specific): Caregiver limitations;Capacity for self care;Mobility challenge;Architectural/environmental barrier(s);Home modification challenge;DME issue;Potential need for skills/non-skilled services;Potential need for 24 hour care Suicide Prevention: No Concerns identified at this time Medications: Current Facility-Administered Medications: ??? acetaminophen (TYLENOL) tablet 325 mg, 325 mg, PO/Per Tube, Q6H PRN, Misty Hathaway MD, 325 mgat 05/11/19 2321 ??? allopurinol (ZYLOPRIM) tablet 100 mg, 100 mg, Oral, Once a day, Misty Hathaway MD, 100 mg at 05/14/19 0823 ??? atenolol (TENORMIN) tablet 12.5 mg, 12.5 mg, Oral, Once a day, Manoj Morrison NP, 12.5 mg at 05/13/19 0920 ??? atorvastatin (LIPITOR) tablet 20 mg, 20 mg, Oral, Once a day, Misty Hathaway MD, 20 mg at 05/14/19 0824 ??? bisacodyl (DULCOLAX) suppository 10 mg, 10 mg, Rectal, Once, Manoj Morrison NP ??? dextrose (GLUTOSE) 40 % oral gel 15 g, 15 g, Oral, PRN, Lucija Sadl, CORK COMPOUNDER ??? dextrose 5 % and sodium chloride 0.45 % infusion, 50 mL/hr, Intravenous, PRN, Manoj Morrison, CORK COMPOUNDER ??? dextrose 50 % IV solution 25 g, 25 g, Intravenous, PRN, Manoj Morrison, CORK COMPOUNDER ??? Diclofenac Sodium (VOLTAREN) 1 % gel 2 g, 2 g, Topical, 2 times per day, Manoj Morrison, CORK COMPOUNDER ??? docusate sodium (COLACE) capsule 100 mg, 100 mg, Oral, Once a day, Misty Hathaway MD, 100 mg at 05/14/19822 ??? donepezil (ARICEPT) tablet 10 mg, 10 mg, Oral, Nightly, Misty Hathaway MD, 10 mg at 05/13/192107 ??? folic acid (FOLVITE) tablet 1 mg, 1 mg, Oral, Once a day, Misty Hathaway MD, 1 mg at 05/14/19822 ??? furosemide (LASIX) tablet 80 mg, 80 mg, Oral, BID DIURETIC, Misty Hathaway MD, 80 mg at 05/14/19822 ??? glucagon (human recombinant) injection 1 mg, 1 mg, Intramuscular, PRN, Manoj Morrison NP ??? heparin (porcine) injection 1,000 Units, 1,000 Units, Intracatheter, Once per day on Fri, Carmen Donato MD ??? heparin (porcine) injection 1,000 Units, 1,000 Units, Intracatheter, Once per day on Fri, Carmen Donato MD ? ? insulin lispro (HumaLOG) injection 0-6 Units, 0-6 Units, Subcutaneous, AC & HS AND POCT glucose, , , AC & HS, Manoj Morrison NP ??? lidocaine (LIDOCARE) 4 % patch 2 patch, 2 patch, Transdermal, Once a day, Manoj Morrison NP ??? [START ON 05/16/2019] lisinopril (PRINIVIL,ZESTRIL) tablet 2.5 mg, 2.5 mg, Oral, Once a day, Manoj Morrison NP ??? oxyCODONE-acetaminophen (PERCOCET) 5-325 MG 1 tablet, 1 tablet, Oral, Q6H PRN, Misty Hathaway MD, 1 tablet at 05/13/19 1753 ??? polyethylene glycol (MIRALAX) packet 17 g, 17 g, Oral, Once a day, Misty Hathaway MD, 17 g at 05/14/19 0824 ??? sodium chloride 0.9 % infusion 250 mL, 250 mL, Intravenous (Continuous Infusion), PRN During Dialysis, Carmen Donato MD ??? tamsulosin (FLOMAX) 24 hr capsule 0.4 mg, 0.4 mg, Oral, Nightly, Misty Hathaway MD, 0.4 mg at 05/13/19 8520 Pharmacy: Nursing Team Conference: Bladder Devices: Adult brief Bladder Interventions: Post void residual monitoring Bowel Continent: Continent Bowel Devices: Adult brief Bowel Interventions: Medications Pain: Patient denies pain Pain Education Provided: Patient Emotional/Spiritual Pain Interventions: Emotional Support Opiate Use Anticipated After Discharge: No Nutrition Intake: Oral Respiratory O2 Delivery System: None Skin Interventions: Weight shift/Turned respositioned every 2 hours Safety Status: Good safety awareness;Follows instructions Safety Interventions: Education;Performed rounding;Supervised activity Cognitive Orientation: Person;Place;Date Quality of Sleep: Restful Is patient on dialysis?: Hemodialysis PT Weekly Progress Note (Notes from 05/07/19 through 05/14/19) PT Weekly Progress Note by Kylie Sanchez PT at 05/13/2019 5:06 PM Author: Kylie Sanchez PT Service: Therapy Author Type: Physical Therapist Filed: 05/13/2019 5:10 PM Date of Service: 05/13/2019 Status: Signed Unix Architect: Kylie Sanchez PT (Physical Therapist) PT Weekly Progress Note Patient Name: Jules Mitchell Patient Birthdate: 1945 PT CURRENT FUNCTIONAL STATUS: PT Current Functional Status: PT Current Functional Status: Mr. Jules Mitchell was evaluated on 05/12/19 and so has made little changein his functional status at this time. His current functional mobility is as follows. TRANSFERS: Sit to and from stand with minimal assistance. Stand pivot transfer with minimal assistance. Car transfer with minimal assistance (improved from UNSAFE). GAIT: Ambulates up to 31 feet with total assistance (minimal assistance + close wheelchair follow) using rolling walker (improved from 6 feet with total assistance (moderate assistance x 1 + close wheelchair follow) when using no assistive device (prior level)). Ambulates across uneven surface with UNSAFE ELEVATIONS Ascends/descends 4 steps at 6 inches each with bilateral handrail support and minimal assistance. Ascends/descends 6 inch curb step (see above). WHEELCHAIR ASSESSMENT: propels manual wheelchair 54 feet with bilateral upper extremities and minimal assistance. OBJECT AVIATION MAINTENANCE TECHNICIAN: Picks up object from the floor with UNSAFE ?? Standardized Assessment: 2 Minute Walk Test: 6 feet with no assistive device (prior level) and total assistance (moderate assistance x 1 + close wheelchair follow). ?? He presents with the below listed impairments. He would benefit from skilled intensive inpatient rehabilitation services at this time in order to further improve upon the below listed impairments andprepare for return to home. Factors in Goal Achievement: Facilitating Factors: Improved functional mobility Barriers: Pain, Strength limitations, Balance deficits, ROM limitations, Diminished endurance, Decreased patient attendance and participation, Decreased patient compliance, Decreased safety awareness, Medical Complications and Decreased patient understanding Date Last Assessed: 05/13/2019 DME Recommendations Common Therapy DME: Other (comment)(ongoing assessment) CARE Score Mario: 6: Independent. Chester provides no assistance with tasks. A device may or may not have been used. 5: Set-up or clean-up assistance. Chester sets up or cleans up, but does not assist with tasks. Chester may have assisted prior to or following the activity. 4: Supervision or touching assistance. Chester provides verbal cues or touching/steadying or contactguard assistance. Assistance may be provided throughout the activity or intermittently. 3: Partial/moderate assistance. Chester does less than half the effort. Chester lifts, holds, or supports trunk or limbs, but provides less than half the effort. 2: Substantial/maximal assistance. Chester does more than half the effort. Chester lifts or holds trunk or limbs, and provides more than half the effort. 1: Dependent. Chester does all of the effort, or the [...] due to medical condition or safety concerns Elementary Education Tutor Goals: Goal Status on Admission Current Status Car Transfer LTG: Independent(Pt to perform car transfer mobility with LRAD and Mod I to demonstrate safe mobility in/out of the car to return to home. ) Car Transfer - CARE Score: 88 (05/12/191452 : Kylie Sanchez PT) Car Transfer - CARE Score: 3 (05/13/191702) Walk 10 Feet - CARE Score: 88 (05/12/191452 : Kylie Sanchez PT) Walk 10 Feet - CARE Score: 1 (05/13/191702) Walk 50 Feet with Two Turns LTG: Independent(Pt to ambulate up to 50 feet with LRAD and Mod I in order to demonstrate safe mobility within the home alone throughout the day. ) Walk 50 Feet with Two Turns - CARE Score: 88 (05/12/191452 : Kylie Sanchez PT) Walk 50 Feet with Two Turns - CARE Score: 88 (05/13/191702) Walk 150 Feet - CARE Score: 88 (05/12/191452 : Kylie Sanchez PT) Walk 150 Feet - CARE Score: 88 (05/13/191702) Walking 10 Feet on Uneven Surfaces - CARE Score: 88 (05/12/191452 : Kylie Sanchez PT) [id number] Feet on Uneven Surfaces - CARE Score: 88 (05/13/191702) 1 Step (Curb) - CARE Score: 3 (05/12/191452 : Kylie Sanchez PT) 1 Step (Curb) - CARE Score: 3(05/13/191702) 4 Steps - CARE Score: 3 (05/12/191452 : Kylie Sanchez PT) 4 Steps - CARE Score: 3 (05/13/191702) 12 Steps LTG: Independent(Pt to ascend/descend at least 12 steps in order to demonstrate safe mobility in/out of the home (6 steps) with 1 HR and LRAD and Mod I. ) 12 Steps - CARE Score: 88 ( : Kylie Sanchez PT) 12 Steps - CARE Score: 88 (01/16/20 1703) Picking Up Object - CARE Score: 88 (05/12/191452 : Kylie Sanchez PT) Picking Up Object - CAREScore: 88 (05/13/191702) Wheel 50 Feet with Two Turns - CARE Score: 3 (05/12/191452 : Kylie Sanchez PT) Wheel 50 Feet with Two Turns - CARE Score: 3 (05/13/191702) Wheel 150 Feet - CARE Score: 2 (05/12/191452 : Kylie Sanchez PT) Wheel 150 Feet - CARE Score:2 (05/13/191702) PT Other Custodial Goals Most Recent Value Other PT Custodial Goals Other Goals - Custodial Custodial 1 Filed on: 05/12/20191458 Other Elementary Education Tutor Goal 1 Pt to perform 2MWT with a distance of at least 40 feet in order to demonstrate improved overall mobility. Filed on: 05/12/20191458 Other Elementary Education Tutor Goal 1 Status Established Filed on: 05/12/20191458 Expected Achievement Date 06/02/19 Filed on: 05/12/20191458 PT Short Term Goal 1: Focus: Car Transfer Details: Pt to perform car transfer with LRAD and CGA. Expected Achievement Date: 05/19/2019 Goal Status: Partially Achieved PT Short Term Goal 2: Focus: Walking Details: Pt to ambulate up to 20 feet with LRAD and Min A. Expected Achievement Date: 05/19/2019 Status: Partially Achieved PT Short Term Goal 3: Focus: Steps Details: Pt to ascends/descend at least 6 steps at 6 inches each and 1 HR with Min A. Expected Achievement Date: 05/19/2019 Status: Partially Achieved PT Short Term Goal 4: Focus: Picking up Object Details: Pt to perform picking up an object with LRAD and CGA Expected Achievement Date: 05/19/2019 Goal Status: Not Achieved PT Short Term Goal 5: Focus: Other Details: Pt to perform TUG. Expected Achievement Date: 05/19/2019 Goal Status: Not Achieved KYLIE SANCHEZ PT 05/13/2019 OT Weekly Progress Note (Notes from 05/07/19 through 05/14/19) OT Weekly Progress Note by Carlos Caba OT at 05/14/2019 7:06 AM Author: Carlos Caba OT Service: Therapy Author Type: Occupational Therapist Filed: 05/14/2019 7:11 AM Date of Service: 05/14/2019 Status: Signed Unix Architect: Carlos Caba OT (Occupational Therapist) Occupational Therapy Weekly Progress Note Patient Name: Jules Mitchell Patient Birthdate: 1945 OT Current Functional Status: Jules Mitchell is completing the following: EATING: independently ORAL HYGIENE:with setup assist/supervision TOILETING:with moderate assist BATHING:with minimal assistance UPPER BODY DRESSING:with setup assist/supervision LOWER BODY DRESSING:with contact guard assistance FOOTWEAR:with moderate assist ROLL RIGHT/LEFT:with minimal assistance SIT TO LYING:with minimal assist LYING TO SIT:with minimal assist SIT TO STAND:with minimal assist CHAIR/BED TO CHAIR TRANSFER:with minimal assist TOILET TRANSFER:with minimal assist Jules Mitchell is demonstrating progress with lower body dressing and standing tolerance. Mr. Mitchell has demonstrated limited progress secondary to recent evaluation. Jules Mitchell continues to present with impaired cognition, impaired functional endurance, impaired strength, impaired standing tolerance/balance, and impaired safety awareness limiting independence with ADLs and functional transfers. Jules Mitchell would benefit from continued intensive OT to address continued barriers for safe return to prior level of function. Facilitating Factors in Goal Achievement: Patient understanding and knowledge, Improved functional mobility and Improved balance Barriers to Goal Achievement: Balance deficits, Diminished endurance, Pain, Strength limitations, Cognitive deficits and Decreased safety awareness Date Last Assessed: 05/14/2019 Patient needs assistance with the following activities: Activities of daily living, Sitting balance, Going out in the community, Reaching, Positioning and Use of bathroom equipment CARE Score Mario: 6: Independent. Chester provides no assistance with tasks. A device may or may not have been used. 5: Set-up or clean-up assistance. Chester sets up or cleans up, but does not assist with tasks. Chester may have assisted prior to or following the activity. 4: Supervision or touching assistance. Chester provides verbal cues or touching/steadying or contactguard assistance. Assistance may be provided throughout the activity or intermittently. 3: Partial/moderate assistance. Chester does less than half the effort. Chester lifts, holds, or supports trunk or limbs, but provides less than half the effort. 2: Substantial/maximal assistance. Chester does more than half the effort. Chester lifts or holds trunk or limbs, and provides more than half the effort. 1: Dependent. Chester does all of the effort, or the [...] due to medical condition or safety concerns Custodial Goals: Goal Status on Admission Current Status Eating LTG: Independent Eating - CARE Score: 6 (05/12/19 114 : Carlos Caba OT) Eating - CARE Score: 6 (05/14/19703) Oral Hygiene LTG: Independent Oral Hygiene - CARE Score: 10 (05/12/191140 : Carlos Caba OT) Oral Hygiene - CARE Score: 5 (05/14/19703) Toileting Hygiene LTG: Independent Toileting Hygiene - CARE Score: 3 (05/12/191140 : Carlos Caba OT) Toileting Hygiene - CARE Score: 3 (05/14/19703) Shower/Bathe Self LTG: Supervision or touching assistance Shower/Bathe Self - CARE Score: 3 (05/12/191140 : Carlos Caba OT) Shower/Bathe Self - CARE Score: 3 (05/14/19703) Upper Body Dressing LTG: Independent Upper Body Dressing - CARE Score: 5 (05/12/191140 : Carlos Caba OT) Upper Body Dressing - CARE Score: 5 (05/14/19703) Lower Body Dressing LTG: Supervision or touching assistance Lower Body Dressing - CARE Score: 2 (05/12/191140 : Carlos Caba OT) Lower Body Dressing - CARE Score: 4 (05/14/19703) Putting On/Taking Off Footwear - CARE Score: 3 (05/12/191140 : Carlos Caba OT) Putting On/Taking Off Footwear - CARE Score: 2 (05/14/19703) Roll Left and Right - CARE Score: 3 (05/12/191140 : Carlos Caba OT) Roll Left and Right - CAREScore: 3 (05/14/19 07) Sit to Lying - CARE Score: 3 (05/12/19 1141 : Carlos Caba OT) Sit to Lying - CARE Score: 3 (05/14/19703) Lying to Sitting on Side of Bed - CARE Score: 3 (05/12/19 1141 : Carlos Caba OT) Lying to Sitting on Side of Bed - CARE Score: 3 (05/14/19 07) Sit to Stand - CARE Score: 3 (05/12/19 1141 : Carlos Caba OT) Sit to Stand - CARE Score: 3 (05/14/19 07) Chair/Lyo-br-Srpkg Transfer LTG: Independent Chair/Elu-nw-Bbzvg Transfer - CARE Score: 3 (05/12/19 1141 : Carlos Caba OT) Chair/Ujw-jq-Zlolg Transfer - CARE Score: 3 (05/14/19703) Toilet Transfer LTG: Independent Toilet Transfer - CARE Score: 3 (05/12/19 1141 : Carlos Caba OT) Toilet Transfer - CARE Score: 3 (05/14/19703) OT Short Term Goal 1: Focus: Toileting Hygiene Details: Pt will complete toileting with minimal assistance using AE, AD as needed Expected Achievement Date: 05/21/2019 Goal Status: Not Achieved OT Short Term Goal 2: Focus: Shower/Bathe Details: Pt will complete bathing with contact guard assistance using shower chair/AE as needed Expected Achievement Date: 05/21/2019 Goal Status: Not Achieved OT Short Term Goal 3: Focus: Upper Body Dressing Details: Pt will complete UB dressing with modified independence Expected Achievement Date: 05/21/2019 Goal Status: Not Achieved OT Short Term Goal 4: Focus: Lower Body Dressing Details: Pt will complete LB dressing with minimal assistance using AE, AD as needed: ACHIEVED Pt will complete LB dressing with SBA using AE, AD as needed Expected Achievement Date: 05/21/2019 Goal Status: Established OT Short Term Goal 5: Focus: Chair/Bed Transfer Details: Pt will complete bed/chair transfer with CGA using assistive device as needed Expected Achievement Date: 05/21/2019 Goal Status: Not Achieved OT Short Term Goal 6: Focus: Toilet Transfer Details: Pt will complete toilet transfer with CGA using AD as needed Expected Achievement Date: 05/21/2019 Goal Status: Not Achieved CARLOS CABA OT 05/14/2019 [facility] Weekly Progress Note (Notes from 05/07/19 through 05/14/19) [facility] Weekly Progress Note by KATHERYN Quintero at 05/13/2019 12:41 PM Author: KATHERYN Quintero Service: Therapy Author Type: Speech and Language Pathologist Filed: 05/13/2019 12:45 PM Date of Service: 05/13/2019 Status: Signed Unix Architect: KATHERYN Quintero (Speech and Language Pathologist) Speech Language Pathologist Weekly Progress Note Patient Name: Jules Mitchell Patient Birthdate: 1945 [facility] Current Functional Status: Mr. Hanna current functional status is as follows: DIET: Regular with thin liquids. ??No dysphagia reported or suspected upon admission. ??Pt. Is edentulous and does not have dentures. ??Patient denies any difficulty with swallowing. Patient reports he is able to 'gum' any food he desires to eat without restrictions. Pt. Took all his pills at one time with water with no difficulty COMPREHENSION: Minimal assistance with basic daily needs - He benefited from repetition and slowed speech rate EXPRESSION: Minimal assistance for basic daily naming, word retrieval deficits, fair speech intelligibility with speech intelligibility being impaired due to fast rate and endentulous SOCIAL INTERACTION: Supervision - additional prompts for increased engagement, participation, eye contact PROBLEM SOLVING: Moderate assistance -Decreased self monitoring and self correction noted in following written directions and clock drawing. ??Scored a 11/30 on the SLUMS indicating moderate-severe cognitive impairment MEMORY: Minimal assistance - Patient presents with cognitive deficits in areas of recall and orientation requiring min cues. PROGRESS: Patient with limited progress overall given limited number of treatment sessions. Patienthas been educated on compensatory strategies for recall. These impairments limit ability to participate in functional communication and daily routines safely and independently ??Pt would benefit from 45-90 minutes daily in individualized and/or group setting, 5 days/week focusing on increased safety and independence. Plan of care to include compe nsatory strategy retraining, cognitive retraining, and patient/family education. Facilitating Factors in Goal Achievement: None Barriers to Goal Achievement: Other (comment) and Poor insight (impaired recall, basic attention, ) Date Last Assessed: 05/13/2019 Elementary Education Tutor Goals: Goal Current Progress towards Goal [facility] Elementary Education Tutor Goal 1: Expression Level of Assistance to Meet Elementary Education Tutor Goal 1: Standby (less than 10%) [facility] Elementary Education Tutor Goal 1 Details: Client will be 90% intelligible in conversation with an unfamiliar listener to improve speech intelligibility at home and in the community. [facility] Elementary Education Tutor Goal 1 Expected Achievement Date: 05/26/19 [facility] Custodial Goal 2: Additional Cognition Level of Assistance to Meet Custodial Goal 2: Standby (less than 10%) [facility] Custodial Goal 2 Details: Patient will improve cognitive linguistic skills to function with Lisa at home and in the community. [facility] Custodial Goal 2 Expected Achievement Date: 05/26/19 Additional Goal Status: N/A [facility] Short Term Goal 1: Focus: Expression Level of Assistance to Meet Short Term Goal: Min assist (10-24%) Details: Client will utilize speech intelligibility strategies produce words in sentences with 90%%acc. Mod I, with consistency to improve speech intelligibility for daily tasks. Expected Achievement Date: 05/20/2019 Goal Status: Not Achieved [facility] Short Term Goal 2: Focus: Additional Cognition Level of Assistance to Meet Short Term Goal: Standby (less than 10%) Details: Pt. Will respond to orientation log question with a score of of 25/30. Expected Achievement Date: 05/20/2019 Goal Status: Not Achieved [facility] Short Term Goal 3: Focus: Additional Cognition Level of Assistance to Meet Short Term Goal: Standby (less than 10%) Details: Patient will recall 12 items in a concrete category in 60'' Jade., with consistency, to improve verbal fluency and thought organization for daily activities. Expected Achievement Date: 05/20/2019 Goal Status: Not Achieved [facility] Short Term Goal 4: Focus: Additional Cognition Level of Assistance to Meet Short Term Goal: Standby (less than 10%) Details: Patient will complete basic attention to detail tasks with 85% acc. Mod I, to improve attention for daily activities Expected Achievement Date: 05/20/2019 Goal Status: Not Achieved [facility] Short Term Goal 5: Focus: Memory Level of Assistance to Meet Short Term Goal: Min assist (10-24%) Details: Patient will utilize memory strategies to perform delayed recall tasks (5-15 minute delay)with 80% acc. Mod I, to improve memory for daily tasks. Expected Achievement Date: 05/20/2019 Goal Status: Not Achieved [facility] Short Term Goal 6: Focus: Additional Cognition Level of Assistance to Meet Short Term Goal: Standby (less than 10%) Details: Patient will complete functional problem solving tasks with 85% acc. to improve organization, reasoning, and planning for daily activities. Expected Achievement Date: 05/20/2019 Goal Status: Not Achieved [facility] 05/13/2019 Respiratory Team Conference: Nutrition Team Conference: Dietary Orders (From admission, onward) Start Ordered 05/13/19 1700 Nutritional supplement Nepro 2 times daily at breakfast and dinner End/Expires: Until Specified Question: Select Supplement: Answer: Nepro 05/13/19 1352 05/13/19 1700 Diet message 3 times daily with meals Comments: Cut meats End/Expires: Until Specified 05/13/19 1352 05/13/19 1352 Adult Diet Therapeutic Diet; Renal with dialysis, Carb Controlled; 5 Carb/75gm/meal (2000 calories); Regular Texture (7 Regular); All Liquids (0 Thin) Diet effective now End/Expires: Until Specified Question Answer Comment Diet Type: Therapeutic Diet Therapeutic Diet: Renal with dialysis Therapeutic Diet: Carb Controlled Carbohydrate Controlled: 5 Carb/75gm/meal (2000 calories) Diet Texture: Regular Texture (7 Regular) Liquid Consistency All Liquids (0 Thin) Place order in third republican system. Done 05/13/19 1352 Height: 5' 10 (177.8 cm) Admit Weight: 136 lb 1.6 oz (61.7 kg) Current Weight: 130 lb 3.2 oz (59.1 kg) Body mass index is 18.68 kg/m??. Calorie Count: Plan of Care - Nutrition Care Plans (Notes for yesterday and today) 1 Author: Tara Alberts RD Service: -- Author Type: Registered Dietitian Filed: 05/13/2019 2:32 PM Date of Service: 05/13/2019 2:32 PM Status: Signed Unix Architect: Tara Alberts RD (Registered Dietitian) Problem: Inadequate or Predicted Suboptimal Energy or Oral Intake Description Related to:poor appetite, diet order As Evidenced By: pt report and po intake 50%; and diet order is written for 1800 calories Goal: Clinical Nutrition Goal Outcome: Progressing Flowsheets (Taken 05/13/2019 1431) Primary Goal: Adequate Meals and Snack/Oral Nutrition Supplement Intake Primary Goal Progress: New Primary Indicator/Monitor: po intake 50-100% Secondary Goal: Weight Gain Secondary Goal Progress: New Secondary Indicator/Monitor: 1/2-2# per week Intervention: Medical Nutrition Therapy Interventions Flowsheets (Taken 05/13/2019 1431) Meals and Snacks: Modify texture/distribution/nutrients (increase calories, and cut meats) Supplements: Commercial beverage/Oral Nutrition Supplement Coordination of Nutrition Care: Continue to Monitor Wound: Medical: New hemodialysis, possible baseline dementia. lE edema, LLE pain, non specific seroma in LE, resolving urinary retension, Cognitive/speech: basic attention and orientation, will need daytime babysitter/ daytime direct supervision Physical: supervision with transfers, cueing and mod a for adl's, safety awareness endurance, flat.Stairs with 1 handrail. Doing 4 steps, verbal cue safety awareness, 120 ft ambulation w/ wheeled walker, poor intiation D/C plan/needs: ADD 1.31. DME needs, day time direct supervision Cosigned by Florencia Moulton MD at 05/14/2019 7:39 PM [employer] Associated attestation - Florencia Moulton MD - 05/14/2019 8:39 PM EST A team conference was held on 05/14/2019 and included members of the multidisciplinary team identified in the attendance section of this note. Issues related to Mr. Mitchell's status include; Impaired mobility Encephalopathy toxic metabolic Dialysis Elevated blood sugars Mr. Frankss progress toward rehabilitation goals, impediments to attaining these goals, and associated revisions to the treatment plans and goals were discussed by the team. Details of this multidisciplinary process are included below. Issues of particular significance at this time regarding Mr. Frankss progress towards rehabilitation goals and treatment plan include: Impaired orientation Impaired safety Hyperglycemia Urinary retention-improving As discussed during this team conference, I concur with the decisions set forth by the members of the multidisciplinary team. Mr. Mitchell continues to require frequent physician visits and 24 hours per day acute rehabilitation nursing care in order to meet medical needs and progress toward the achievement of the rehabilitation goals. Re evaluate next week; assess baseline and caregiver CANDI 05/28/2019 FLORENCIA MOULTON MD 05/14/2019 7:35 PM * PT Treatment Note - Kylie Sanchez, PT - 05/14/2019 11:20 AM CST PT Treatment Patient Name: Jules Mitchell Patient Birthdate: 1945 Patient Subjective Report - Pt seated in w/c upon entry. Pt ready for therapy. Pain Assessment Pain Context: Therapy Assessment Prior to Treatment (05/14/19 1120) Pain Assessment: None/denies pain (05/14/19 1120) Surface: Even surface and Indoor Assistive Device: RW Ambulation Level of Assistance: Contact Guard Distance (feet): 121 Gait Analysis: 2 x 121' with RW and consistent CGA for safety. Pt demonstrates greatly increased distance between RW and DEONNA during first bout. Noted decreased foot clearance and decreased stance time on L LE, however no LOB throughout ambulation. Pt requires seated rest break after each bout. Withvisual demonstration of proper gait mechanics and close positioning of RW to DEONNA, pt demonstrates second bout with improved overall upright posture and notes decreased stress on L LE during ambulation as well. Rails: Left Stairs Level of Assistance: Contact Guard and Minimal Verbal Cues Stairs Height of Step: 6-inch Stair Analysis: Pt performs 1 x 4 steps with cues to use 1 HR (L UE) to simulate entrance into his home. Pt is able to perform a total of 4 steps at 6 inches each with sidestep technique and no notedLOB. Verbal cues for safe sequencing and greatly increased time to complete. Seated rest break uponcompletion. Number of Steps: 4 Transfer to 1: Stand Transfer from 1: Wheelchair Technique 1: Sit to stand and Stand to sit Transfer Level of Assistance 1: Close Supervision and Contact Guard Trials/Comments1: Performed multiple reps (mixed practice throuhgout session. Pt varies hand placement on RW and armrests, however is able to complete with varying CGA-close supervision. Cues for reaching back to w/c prior to initiation of sitting back to w/c. Were respiratory Interventions provided?: No IP REHAB PT SPECIAL TESTS AND OUTCOMES: Special Test and Outcome Measures: Timed Up and Go 05/14/19 1100 Timed Up and Go (TUG) Trial 1 (in seconds) 61.15 (With RW and CGA) Trial 2 (in seconds) 65.09 Trial 3 (in seconds) 70.41 Average of three trials 65.55 PT Treatment Outcomes:: Patient is progressing toward STG, Patient tolerated treatment well, Safetydevice reapplied, Improved safety awareness, Improved transfer ability noted, Cues needed for safety and Improved ambulation performance PT Summary:: Patient remained up sitting in [...] Evaluation and Follow-up Pain Reassessment: No pain (05/14/19 1207) Nursing notified of patient's pain assessment: Not indicated - pain score 2 or less (05/14/19 1207) Therapy Minutes Individual Concurrent Co-Treat Time In : 1120 Time Out: 1207 Total Time with Patient (Min): 47 min Missed Minutes : 2 KYLIE SANCHEZ PT 05/14/2019 * OT Treatment Note - Carlos Caba OT - 05/14/2019 10:32 AM CST Occupational Therapy Treatment Patient Name: Jules Mitchell Patient Birthdate: 1945 Pain Assessment Pain Context: Therapy Assessment Prior to Treatment (05/14/19 1032) Pain Assessment: None/denies pain (05/14/19 1032) ADL Status: Bed, Chair, Wheelchair Transfer: Close Supervision Bed/Chair Transfer to: Stand Bed/Chair Transfer from: Wheelchair Bed/Chair Transfer Technique: Stand to sit and Sit to stand Assistive Devices Used: Walker Bed/Chair Transfer Comments: Pt able to complete sit <> stand with close supervision due to impaired balance and cues for safe use of Rw. Pt requires verbal cues for proper hand placement to assist with force production/safe lowering. Pt completes x4 trials throughout session. Standing Tolerance Time (mins): 15 minutes x2, 8 minutes x1 Activity: Dynamic balance, Problem-solving task Functional Standing Tolerance Comments: Pt participates in standing tolerance, functional reaching/dynamic balance and problem-solving task to improve skills during self-care. Pt requires moderate verbal cues for comprehension of directions/problem-solving. Pt requires close supervision for safety due to impaired balance. Standing Assist: Close Supervision Coordination Training: Coordination Training Narrative: Coordination formally reassessed with 9 Hole Peg Test - L hand - 1minute and 4 seconds, R hand: 1 minute and 16 seconds Grasp and Pinch Training: Grasp and Pinch Training: [employer] strength formally assessed this date - L hand: 6# , R hand: 6# Cognitive Skills Training: Problem Solving comments: Pt participates in problem-solving training through use of modified puzzle task. Pt requires moderate to maximal assist for problem- solving and frequent verbal cues for direction/assist. Pt requires significantly increased time. Pt participates to improve skills during self-care/functional mobility. Treatment, Outcomes and Plan: OT Narrative:: Pt with PT at conclusion of session. Seat belt fastened/alarm activated. Pt participates well in problem-solving training and standing tolerance/balance training. OT Treatment Outcomes:: Safety device reapplied and Patient tolerated treatment well OT Summary Plan of Care: Continue with current plan of care Pain Evaluation and Follow-up Pain Reassessment: No pain (05/14/19 1108) Nursing notified of patient's pain assessment: Not indicated - pain score 2 or less (05/14/19 1108) Therapy Minutes Individual Concurrent Co-Treat Time In : 1032 Time Out: 1117 Total Time with Patient (Min): 45 min Missed Minutes : 0 CARLOS CABA OT 05/14/2019 * PT Treatment Note - Lissette Espinosa PT - 05/14/2019 8:15 AM CST PT Treatment Patient Name: Jules Mitchell Patient Birthdate: 1945 Patient Subjective Report - Patient agreeable to therapy. Pain Assessment Pain Context: Therapy Assessment Prior to Treatment (05/14/19814) Pain Assessment: None/denies pain (05/14/19814) Pain Score: 0 - No pain (05/14/19814) Bed Mobility Comment: Supine to sit with minimal assist on bed with assist to raise trunk and tactile cues to bring LE's over edge of bed. Surface: Indoor Assistive Device: RW Ambulation Level of Assistance: Contact Guard Gait Analysis: 100 feet x 2 with CGA for safety. Cues to keep close proximity to walker with decreased step length and height BLE's, shuffling steps with flexed trunk and slow joao. Cues to correct deviations. Seated rest break between bouts. Technique 1: Stand pivot Trials/Comments1: Bed to w/c with minimal assist Technique 2: Sit to stand and Stand to sit Transfer Level of Assistance 2: Minimal Assistance Trials/Comments 2: W/c <-> walker with cues to push from chair to stand and cues to reach forchair when sitting with good carryover during session. Seated Position: Sci-fit: BUE/LE x 6 minutes to facilitate reciprocal LE movement and improved fluid gait. PT Treatment Outcomes:: Cues needed for safety, Patient is progressing toward STG, Goals met for this session, Improved ambulation performance and Patient tolerated treatment well PT Summary:: Session emphasis on mobility and strength training. Patient progressed from [id number] feet CGA/minimal assist with a w/c follow for safety to 100 feet with CGA without need for a w/cfollow. Patient continues to require cues for safe transfer technique and safe walker management. Continued intensive therapy indicated to maximize potential for optimal recovery.Patient remained up sitting in chair at end of session with pelvic positioning belt on, chair alarm in place, call lightand phone within reach. PT Summary Plan of Care: Continue with current plan of care Pain Evaluation and Follow-up Pain Reassessment: No pain (05/14/19 0900) Nursing notified of patient's pain assessment: Not indicated - pain score 2 or less (05/14/19 0900) Therapy Minutes Individual Concurrent Co-Treat Time In : 814 Time Out: 899 Breaks/Pauses (Min): 0 mins Total Time with Patient (Min): 45 min Missed Minutes : 0 LISSETTE ESPINOSA, PT 05/14/2019 * [facility] Treatment Note - [facility] - 05/14/2019 7:28 AM [employer] Speech Language Pathologist Treatment Patient Name: Jules Mitchell Patient Birthdate: 1945 Patient Subjective Report - Patient awake and in bed. He reports issues with diarrhea this date. Pain Assessment Pain Context: Therapy Assessment Prior to Treatment (05/14/19727) Pain Assessment: None/denies pain (05/14/19727) Cognitive Communication: Basic attention, Compensatory techniques for cognition, Short-term memory,Verbal organization, Word finding and Verbal problem solving Dysarthria: Compensatory techniques for dysarthria Patient/Caregiver Training: Cognitive Communication Disorder, Cognitive strategies, Therapy goals and treatment plan, Communication strategies and Completed with patient ST Narrative:: Patient scored 23/30 on orientation log with patient being oriented to city, time, kind of place and reason and required min to moderate cues for all other orientation questions. Patient with inconsistent recall of orientation information later in therapy session. He completed problem solving task identifying safety hazards in visual scene with 75% moderate cues, effects with 100%,and solutions 80% min cues. He recalled information from visual scene after 3 minute delay and being educated on visualization as recall strategy with patient recalling 50% independently and 75% moderate cues. He recalled information about therapist from yesterdays therapy session with max cues. Mojgan leary communicating during therapy session with speech difficulty to understand and overall 75% intelligible during picture description task. Speech intelligibility impacted by missing dentition and fast rate of speec Patient overall is pleasant and cooperative but presents with flat affect and decreased initiation but will at times laugh at jokes. He demonstrated impaired orientation and recall with benefit from visual and verbal cues. Continue ST Patient left in bed with alarm on and call light in reach. ST Session Outcomes: Tolerated treatment well, Patient/family education progressing [facility] Plan of Care: Continue with current plan of care Pain Evaluation and Follow-up Pain Reassessment: No pain (05/14/19 0812) Therapy Minutes Individual Concurrent Co-Treat Time In : 727 Time Out: 813 Total Time with Patient (Min): 46 min Missed Minutes : 1 PAZ LINN [facility] 05/14/2019 * OT Weekly Progress Note - Carlos Caba OT - 05/14/2019 7:06 AM [employer] Occupational Therapy Weekly Progress Note Patient Name: Jules Mitchell Patient Birthdate: 1945 OT Current Functional Status: Jules Mitchell is completing the following: EATING: independently ORAL HYGIENE:with setup assist/supervision TOILETING:with moderate assist BATHING:with minimal assistance UPPER BODY DRESSING:with setup assist/supervision LOWER BODY DRESSING:with contact guard assistance FOOTWEAR:with moderate assist ROLL RIGHT/LEFT:with minimal assistance SIT TO LYING:with minimal assist LYING TO SIT:with minimal assist SIT TO STAND:with minimal assist CHAIR/BED TO CHAIR TRANSFER:with minimal assist TOILET TRANSFER:with minimal assist Jules Mitchell is demonstrating progress with lower body dressing and standing tolerance. Mr. Mitchell has demonstrated limited progress secondary to recent evaluation. Jules Mitchell continues to present with impaired cognition, impaired functional endurance, impaired strength, impaired standing tolerance/balance, and impaired safety awareness limiting independence with ADLs and functional transfers. Jules Mitchell would benefit from continued intensive OT to address continued barriers for safe return to prior level of function. Facilitating Factors in Goal Achievement: Patient understanding and knowledge, Improved functional mobility and Improved balance Barriers to Goal Achievement: Balance deficits, Diminished endurance, Pain, Strength limitations, Cognitive deficits and Decreased safety awareness Date Last Assessed: 05/14/2019 Patient needs assistance with the following activities: Activities of daily living, Sitting balance, Going out in the community, Reaching, Positioning and Use of bathroom equipment CARE Score Mario: 6: Independent. Chester provides no assistance with tasks. A device may or may not have been used. 5: Set-up or clean-up assistance. Chester sets up or cleans up, but does not assist with tasks. Chester may have assisted prior to or following the activity. 4: Supervision or touching assistance. Chester provides verbal cues or touching/steadying or contactguard assistance. Assistance may be provided throughout the activity or intermittently. 3: Partial/moderate assistance. Chester does less than half the effort. Chester lifts, holds, or supports trunk or limbs, but provides less than half the effort. 2: Substantial/maximal assistance. Chester does more than half the effort. Chester lifts or holds trunk or limbs, and provides more than half the effort. 1: Dependent. Chester does all of the effort, or the [...] due to medical condition or safety concerns Elementary Education Tutor Goals: Goal Status on Admission Current Status Eating LTG: Independent Eating - CARE Score: 6 (05/12/19 1141 : Carlos Caba OT) Eating - CARE Score: 6 (05/14/19703) Oral Hygiene LTG: Independent Oral Hygiene - CARE Score: 10 (05/12/19 1141 : Carlos Caba OT) Oral Hygiene - CARE Score: 5 (05/14/19703) Toileting Hygiene LTG: Independent Toileting Hygiene - CARE Score: 3 (05/12/19 114 : Carlos Caba OT) Toileting Hygiene - CARE Score: 3 (05/14/19703) Shower/Bathe Self LTG: Supervision or touching assistance Shower/Bathe Self - CARE Score: 3 (05/12/19 114 : Carlos Caba OT) Shower/Bathe Self - CARE Score: 3 (05/14/19703) Upper Body Dressing LTG: Independent Upper Body Dressing - CARE Score: 5 (05/12/19 114 : Carlos Caba OT) Upper Body Dressing - CARE Score: 5 (05/14/19703) Lower Body Dressing LTG: Supervision or touching assistance Lower Body Dressing - CARE Score: 2 (05/12/19 114 : Carlos Caba OT) Lower Body Dressing - CARE Score: 4 (05/14/19703) Putting On/Taking Off Footwear - CARE Score: 3 (05/12/19 114 : Carlos Caba OT) Putting On/Taking Off Footwear - CARE Score: 2 (05/14/19703) Roll Left and Right - CARE Score: 3 (05/12/19 114 : Carlos Caba OT) Roll Left and Right - CAREScore: 3 (05/14/19703) Sit to Lying - CARE Score: 3 (05/12/19 114 : Carlos Caba OT) Sit to Lying - CARE Score: 3 (05/14/19703) Lying to Sitting on Side of Bed - CARE Score: 3 (05/12/19 1141 : Carlos Caba OT) Lying to Sitting on Side of Bed - CARE Score: 3 (05/14/19 0704) Sit to Stand - CARE Score: 3 (05/12/19 1141 : Carlos Caba OT) Sit to Stand - CARE Score: 3 (05/14/19 0704) Chair/Avl-ib-Pwxze Transfer LTG: Independent Chair/Ysk-re-Gsjyo Transfer - CARE Score: 3 (05/12/19 1141 : Carlos Caba OT) Chair/Bxb-mg-Zfttm Transfer - CARE Score: 3 (05/14/19 07) Toilet Transfer LTG: Independent Toilet Transfer - CARE Score: 3 (05/12/19 1141 : Carlos Caba OT) Toilet Transfer - CARE Score: 3 (05/14/19703) OT Short Term Goal 1: Focus: Toileting Hygiene Details: Pt will complete toileting with minimal assistance using AE, AD as needed Expected Achievement Date: 05/21/2019 Goal Status: Not Achieved OT Short Term Goal 2: Focus: Shower/Bathe Details: Pt will complete bathing with contact guard assistance using shower chair/AE as needed Expected Achievement Date: 05/21/2019 Goal Status: Not Achieved OT Short Term Goal 3: Focus: Upper Body Dressing Details: Pt will complete UB dressing with modified independence Expected Achievement Date: 05/21/2019 Goal Status: Not Achieved OT Short Term Goal 4: Focus: Lower Body Dressing Details: Pt will complete LB dressing with minimal assistance using AE, AD as needed: ACHIEVED Pt will complete LB dressing with SBA using AE, AD as needed Expected Achievement Date: 05/21/2019 Goal Status: Established OT Short Term Goal 5: Focus: Chair/Bed Transfer Details: Pt will complete bed/chair transfer with CGA using assistive device as needed Expected Achievement Date: 05/21/2019 Goal Status: Not Achieved OT Short Term Goal 6: Focus: Toilet Transfer Details: Pt will complete toilet transfer with CGA using AD as needed Expected Achievement Date: 05/21/2019 Goal Status: Not Achieved CARLOS CABA OT 05/14/2019 * Plan of Care - Britt Quach RN - 05/14/2019 12:31 AM CST Problem: Infection Goal: Absence of infection and [...] facility with appropriate resources Outcome: Progressing Goal: manager supply will develop a plan to 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 burden and 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 in role Outcome: Progressing Problem: Knowledge Deficit Goal: Patient/family/caregiver [...] is Maintained or Improved Outcome: Progressing Problem: Case Management Discharge Goals Goal: Identify patient's discharge goals Outcome: Progressing Goal: Coordinate Safe Discharge Plan Outcome: Progressing Goal: Work with the treatment team to assess caregiver capability Outcome: Progressing Problem: Pain Goal: Patient's pain/discomfort is manageable Outcome: Progressing * PT Weekly Progress Note - Kylie Sanchez PT - 05/13/2019 5:06 PM GLOVE TAGGER PT Weekly Progress Note Patient Name: Jules Mitchell Patient Birthdate: 1945 PT CURRENT FUNCTIONAL STATUS: PT Current Functional Status: PT Current Functional Status: Mr. Jules Mitchell was evaluated on 05/12/19 and so has made little changein his functional status at this time. His current functional mobility is as follows. TRANSFERS: Sit to and from stand with minimal assistance. Stand pivot transfer with minimal assistance. Car transfer with minimal assistance (improved from UNSAFE). GAIT: Ambulates up to 31 feet with total assistance (minimal assistance + close wheelchair follow) using rolling walker (improved from 6 feet with total assistance (moderate assistance x 1 + close wheelchair follow) when using no assistive device (prior level)). Ambulates across uneven surface with UNSAFE ELEVATIONS Ascends/descends 4 steps at 6 inches each with bilateral handrail support and minimal assistance. Ascends/descends 6 inch curb step (see above). WHEELCHAIR ASSESSMENT: propels manual wheelchair 54 feet with bilateral upper extremities and minimal assistance. OBJECT AVIATION MAINTENANCE TECHNICIAN: Picks up object from the floor with UNSAFE ?? Standardized Assessment: 2 Minute Walk Test: 6 feet with no assistive device (prior level) and total assistance (moderate assistance x 1 + close wheelchair follow). ?? He presents with the below listed impairments. He would benefit from skilled intensive inpatient rehabilitation services at this time in order to further improve upon the below listed impairments andprepare for return to home. Factors in Goal Achievement: Facilitating Factors: Improved functional mobility Barriers: Pain, Strength limitations, Balance deficits, ROM limitations, Diminished endurance, Decreased patient attendance and participation, Decreased patient compliance, Decreased safety awareness, Medical Complications and Decreased patient understanding Date Last Assessed: 05/13/2019 DME Recommendations Common Therapy DME: Other (comment)(ongoing assessment) CARE Score Mario: 6: Independent. Chester provides no assistance with tasks. A device may or may not have been used. 5: Set-up or clean-up assistance. Chester sets up or cleans up, but does not assist with tasks. Chester may have assisted prior to or following the activity. 4: Supervision or touching assistance. Chester provides verbal cues or touching/steadying or contactguard assistance. Assistance may be provided throughout the activity or intermittently. 3: Partial/moderate assistance. Chester does less than half the effort. Chester lifts, holds, or supports trunk or limbs, but provides less than half the effort. 2: Substantial/maximal assistance. Chester does more than half the effort. Chester lifts or holds trunk or limbs, and provides more than half the effort. 1: Dependent. Chester does all of the effort, or the [...] due to medical condition or safety concerns Custodial Goals: Goal Status on Admission Current Status Car Transfer LTG: Independent(Pt to perform car transfer mobility with LRAD and Mod I to demonstrate safe mobility in/out of the car to return to home. ) Car Transfer - CARE Score: 88 (05/12/191452 : Kylie Sanchez PT) Car Transfer - CARE Score: 3 (05/13/191702) Walk 10 Feet - CARE Score: 88 (05/12/191452 : Kylie Sanchez PT) Walk 10 Feet - CARE Score: 1 (05/13/191702) Walk 50 Feet with Two Turns LTG: Independent(Pt to ambulate up to 50 feet with LRAD and Mod I in order to demonstrate safe mobility within the home alone throughout the day. ) Walk 50 Feet with Two Turns - CARE Score: 88 (05/12/191452 : Kylie Sanchez PT) Walk 50 Feet with Two Turns - CARE Score: 88 (05/13/191702) Walk 150 Feet - CARE Score: 88 (05/12/191452 : Kylie Sanchez PT) Walk 150 Feet - CARE Score: 88 (05/13/191702) Walking 10 Feet on Uneven Surfaces - CARE Score: 88 (05/12/191452 : Kylie Sanchez PT) [id number] Feet on Uneven Surfaces - CARE Score: 88 (05/13/191702) 1 Step (Curb) - CARE Score: 3 (05/12/191452 : Kylie Sanchez PT) 1 Step (Curb) - CARE Score: 3(05/13/191702) 4 Steps - CARE Score: 3 (05/12/191452 : Kylie Sanchez PT) 4 Steps - CARE Score: 3 (05/13/191702) 12 Steps LTG: Independent(Pt to ascend/descend at least 12 steps in order to demonstrate safe mobility in/out of the home (6 steps) with 1 HR and LRAD and Mod I. ) 12 Steps - CARE Score: 88 ( : Kylie Sanchez PT) 12 Steps - CARE Score: 88 (05/13/191702) Picking Up Object - CARE Score: 88 (05/12/191452 : Kylie Sanchez PT) Picking Up Object - CAREScore: 88 (05/13/191702) Wheel 50 Feet with Two Turns - CARE Score: 3 (05/12/191452 : Kylie Sanchez, PT) Wheel 50 Feet with Two Turns - CARE Score: 3 (05/13/191702) Wheel 150 Feet - CARE Score: 2 (05/12/191452 : Kylie Sanchez, PT) Wheel 150 Feet - CARE Score:2 (05/13/191702) PT Other Custodial Goals Most Recent Value Other PT Elementary Education Tutor Goals Other Goals - Elementary Education Tutor Elementary Education Tutor 1 Filed on: 05/12/20191458 Other Custodial Goal 1 Pt to perform 2MWT with a distance of at least 40 feet in order to demonstrate improved overall mobility. Filed on: 05/12/20191458 Other Elementary Education Tutor Goal 1 Status Established Filed on: 05/12/20191458 Expected Achievement Date 06/02/19 Filed on: 05/12/20191458 PT Short Term Goal 1: Focus: Car Transfer Details: Pt to perform car transfer with LRAD and CGA. Expected Achievement Date: 05/19/2019 Goal Status: Partially Achieved PT Short Term Goal 2: Focus: Walking Details: Pt to ambulate up to 20 feet with LRAD and Min A. Expected Achievement Date: 05/19/2019 Status: Partially Achieved PT Short Term Goal 3: Focus: Steps Details: Pt to ascends/descend at least 6 steps at 6 inches each and 1 HR with Min A. Expected Achievement Date: 05/19/2019 Status: Partially Achieved PT Short Term Goal 4: Focus: Picking up Object Details: Pt to perform picking up an object with LRAD and CGA Expected Achievement Date: 05/19/2019 Goal Status: Not Achieved PT Short Term Goal 5: Focus: Other Details: Pt to perform TUG. Expected Achievement Date: 05/19/2019 Goal Status: Not Achieved KYLIE SANCHEZ PT 05/13/2019 * Plan of Care - Tara Alberts RD - 05/13/2019 2:32 PM CST Problem: Inadequate or Predicted Suboptimal Energy or Oral Intake Description Related to:poor appetite, diet order As Evidenced By: pt report and po intake 50%; and diet order is written for 1800 calories Goal: Clinical Nutrition Goal Outcome: Progressing Flowsheets (Taken 05/13/2019 1431) Primary Goal: Adequate Meals and Snack/Oral Nutrition Supplement Intake Primary Goal Progress: New Primary Indicator/Monitor: po intake 50-100% Secondary Goal: Weight Gain Secondary Goal Progress: New Secondary Indicator/Monitor: 1/2-2# per week Intervention: Medical Nutrition Therapy Interventions Flowsheets (Taken 05/13/2019 1431) Meals and Snacks: Modify texture/distribution/nutrients (increase calories, and cut meats) Supplements: Commercial beverage/Oral Nutrition Supplement Coordination of Nutrition Care: Continue to Monitor * PULLING UNIT FLOORHAND Weekly Progress Note - Paz Linn CCC-PULLING UNIT FLOORHAND - 05/13/2019 12:41 PM GLOVE TAGGER Speech Language Pathologist Weekly Progress Note Patient Name: Jules Mitchell Patient Birthdate: 1945 [employer]ING [employer]LOOR[employer] Current Functional Status: Mr. Vicente's current functional status is as follows: DIET: Regular with thin liquids. ??No dysphagia reported or suspected upon admission. ??Pt. Is edentulous and does not have dentures. ??Patient denies any difficulty with swallowing. Patient reports he is able to 'gum' any food he desires to eat without restrictions. Pt. Took all his pills at one time with water with no difficulty COMPREHENSION: Minimal assistance with basic daily needs - He benefited from repetition and slowed speech rate EXPRESSION: Minimal assistance for basic daily naming, word retrieval deficits, fair speech intelligibility with speech intelligibility being impaired due to fast rate and endentulous SOCIAL INTERACTION: Supervision - additional prompts for increased engagement, participation, eye contact PROBLEM SOLVING: Moderate assistance -Decreased self monitoring and self correction noted in following written directions and clock drawing. ??Scored a 03/27 on the SLUMS indicating moderate-severe cognitive impairment MEMORY: Minimal assistance - Patient presents with cognitive deficits in areas of recall and orientation requiring min cues. PROGRESS: Patient with limited progress overall given limited number of treatment sessions. Patienthas been educated on compensatory strategies for recall. These impairments limit ability to participate in functional communication and daily routines safely and independently ??Pt would benefit from 45-90 minutes daily in individualized and/or group setting, 5 days/week focusing on increased safety and independence. Plan of care to include compe nsatory strategy retraining, cognitive retraining, and patient/family education. Facilitating Factors in Goal Achievement: None Barriers to Goal Achievement: Other (comment) and Poor insight (impaired recall, basic attention, ) Date Last Assessed: 05/13/2019 Custodial Goals: Goal Current Progress towards Goal PULLING [employer]IT FLOORHAND Elementary Education Tutor Goal 1: Expression Level of Assistance to Meet Custodial Goal 1: Standby (less than 10%) [employer]ING [employer]LO[employer] Custodial Goal 1 Details: Client will be 90% intelligible in conversation with an unfamiliar listener to improve speech intelligibility at home and in the community. PULLING UNIT FLOORHAND Elementary Education Tutor Goal 1 Expected Achievement Date: 05/26/19 PULLING [employer]IT FLOOR[employer] Elementary Education Tutor Goal 2: Additional Cognition Level of Assistance to Meet Elementary Education Tutor Goal 2: Standby (less than 10%) P[employer]ING [employer] Elementary Education Tutor Goal 2 Details: Patient will improve cognitive linguistic skills to function with Lisa at home and in the community. PULLING UNIT FLOORHAND Elementary Education Tutor Goal 2 Expected Achievement Date: 05/26/19 Additional Goal Status: N/A [employer] [employer] Short Term Goal 1: Focus: Expression Level of Assistance to Meet Short Term Goal: Min assist (10-24%) Details: Client will utilize speech intelligibility strategies produce words in sentences with 90%%acc. Mod I, with consistency to improve speech intelligibility for daily tasks. Expected Achievement Date: 05/20/2019 Goal Status: Not Achieved PULLING [employer]IT FLOORHAND Short Term Goal 2: Focus: Additional Cognition Level of Assistance to Meet Short Term Goal: Standby (less than 10%) Details: Pt. Will respond to orientation log question with a score of of 25/30. Expected Achievement Date: 05/20/2019 Goal Status: Not Achieved [employer]ING [employer] Short Term Goal 3: Focus: Additional Cognition Level of Assistance to Meet Short Term Goal: Standby (less than 10%) Details: Patient will recall 12 items in a concrete category in 60'' Jade., with consistency, to improve verbal fluency and thought organization for daily activities. Expected Achievement Date: 05/20/2019 Goal Status: Not Achieved [employer]ING [employer]LO[employer] Short Term Goal 4: Focus: Additional Cognition Level of Assistance to Meet Short Term Goal: Standby (less than 10%) Details: Patient will complete basic attention to detail tasks with 85% acc. Mod I, to improve attention for daily activities Expected Achievement Date: 05/20/2019 Goal Status: Not Achieved [employer]ING [employer]LO[employer] Short Term Goal 5: Focus: Memory Level of Assistance to Meet Short Term Goal: Min assist (10-24%) Details: Patient will utilize memory strategies to perform delayed recall tasks (5-15 minute delay)with 80% acc. Mod I, to improve memory for daily tasks. Expected Achievement Date: 05/20/2019 Goal Status: Not Achieved [employer]LO[employer] Short Term Goal 6: Focus: Additional Cognition Level of Assistance to Meet Short Term Goal: Standby (less than 10%) Details: Patient will complete functional problem solving tasks with 85% acc. to improve organization, reasoning, and planning for daily activities. Expected Achievement Date: 05/20/2019 Goal Status: Not Achieved PAZ LINN CCC-P[facility]ING [facility] FLOORHAND 05/13/2019 * Individualized Overall Plan of Care - Florencia Moulton MD - 05/13/2019 12:03 PM CST Images from the original note were not included. INDIVIDUALIZED OVERALL PLAN OF CARE I have reviewed the admitting History and Physical examination on Jules Mitchell and monitored the patient's status and progress since the admission. Based on the patient's multi-disciplinary evaluations, deficits, and functional needs, my plan of care is inclusive of the following therapies and associated goals: Physical Therapy The following physical therapy plan of care is recommended for Mr. Mitchell PT Plan of Care & Recommendations (since 05/03/2019) Evaluation Summary: Mr. Jules Mitchell is a 73 year old male with a primary problem of debility. (Per patient report, he notes his left leg pain is what caused him to be unable to get around like he used to). PREVIOUS MEDICAL HISTORY/COMORBIDITY LIST: chronic kidney disease (stage 5), hypercholesterolemia, HTN, prostate cancer, shingles, DM II, orchiectomy. HOME SITUATION: lives with nephew in a 1st floor apartment with 6 steps to enter with handrail on the left. Once inside there are no steps to use. ASSISTANCE AVAILABLE UPON RETURN TO HOME: limited help from nephew as he works during the day. CURRENTLY OWNED DME: 2 straight canes (uses them with bilateral upper extremities recently). PRIOR LEVEL OF FUNCTION: able to ambulate with no assistive device at home and in the community with no assistance. His current functional mobility is as follows. TRANSFERS: Sit to and from stand with minimal assistance. Stand pivot transfer with minimal assistance. Car transfer with UNSAFE. GAIT: Ambulates up to 6 feet with total assistance (moderate assistance x 1 + close wheelchair follow) when using no assistive device (prior level). Ambulates across uneven surface with UNSAFE ELEVATIONS Ascends/descends 4 steps at 6 inches each with bilateral handrail support and minimal assistance. Ascends/descends 6 inch curb step (see above). WHEELCHAIR ASSESSMENT: propels manual wheelchair 54 feet with bilateral upper extremities and minimal assistance. OBJECT AVIATION MAINTENANCE TECHNICIAN: Picks up object from the floor with UNSAFE Standardized Assessment: 2 Minute Walk Test: 6 feet with no assistive device (prior level) and total assistance (moderate assistance x 1 + close wheelchair follow). He presents with the below listed impairments. Due to his previous medical history as well as his current level of function, he has fair rehab potential. He would benefit from skilled intensive inpatient rehabilitation services at this time in order to further improve upon the below listed impairments and prepare for return to home. Problem List: Decreased cognition; Decreased endurance; Decreased mobility; Decreased range of motion; Decreased tolerance to handling; Impaired balance; Impaired elevation ability; Impaired judgement; Impaired Neuromm Strength; Pain; Reluctance to stand and weight bear through lower extremities; Decreased coordination; Decreased safety awareness; Decreased strength; Impaired ambulation ability; Impaired bed mobility; Impaired transfer ability; Impaired wheelchair management Additional Information: PREVIOUS MEDICAL HISTORY/COMORBIDITY LIST: chronic kidney disease (stage 5), hypercholesterolemia, HTN, prostate cancer, shingles, DM II, orchiectomy. PT to provide the following services: Aerobic/Endurance conditioning; Balance/proprioceptive training; Education - patient/family; Elevation training; Gait training; Therapeutic activities; Wheelchair safety and mobility training; Adaptive equipment/DME prescription and application; Body mechanics/ergonomics; Fall prevention; Home Exercise Program (HEP) prescription; Neuromuscular re-education; Therapeutic exercise; Therapeutic modalities - cold therapy; Therapeutic modalities - heat therapy Frequency: 45-90 minutes 5 out of 7 days Responsible Physical Therapist: Kylie Sanchez, PT Mr. Mitchell will achieve the following: Elementary Education Tutor Goals: Car Transfer LTG: Independent(Pt to perform car transfer mobility with LRAD and Mod I to demonstrate safe mobility in/out of the car to return to home. ) Walk 50 Feet with Two Turns LTG: Independent(Pt to ambulate up to 50 feet with LRAD and Mod I in order to demonstrate safe mobility within the home alone throughout the day. ) 12 Steps LTG: Independent(Pt to ascend/descend at least 12 steps in order to demonstrate safe mobility in/out of the home (6 steps) with 1 HR and LRAD and Mod I. ) PT Other Elementary Education Tutor Goals Most Recent Value Other PT Elementary Education Tutor Goals Other Goals - Custodial Custodial 1 Filed on: 05/12/2019 0507 Other Custodial Goal 1 Pt to perform 2MWT with a distance of at least 40 feet in order to demonstrate improved overall mobility. Filed on: 05/12/2019 1456 Other Custodial Goal 1 Status Established Filed on: 05/12/2019 145 Expected Achievement Date 06/02/19 Filed on: 05/12/2019 1457 Occupational Therapy: The following occupational therapy plan of care is recommended for Mr. Mitchell: OT Plan of Care & Recommendations (since 05/03/2019) Evaluation Summary: Mr. Mitchell is a 73 year old male who presents with encephalopathy, acute kidney injury, and debility.His pertinent past medical history includes: HTN, prostate CA, orchiectomy, shingles, and T2DM. Prior to admission, Mr. Mitchell was independent with ADL's prior to admission and receives assist with IADL's from nephew. Currently, Mr. Mitchell presents with impaired functional endurance, pain, decreased transfer status, impaired standing tolerance/balance, impaired cognition, decreased safety awareness, impaired strength and impaired functional reach limiting his independence. Mr. Mitchell presents with moderate deficits limiting independence and safety with self-care/functional mobility. Mr. Mitchell would benefit from continued intensive occupational therapy in the inpatient rehabilitation setting to maximize safety/independence with self-care and discharge to least restrictive environment. Problem List: Activity Tolerance; Cognitive deficits; Community access; Community deficits; Leisure skill; Mobility; Decreased functional endurance; Decreased functional status in ADL's; Impaired balance; Decreased transfer status; Decreased upper body strength OT to provide the following services: ADL and Transfer Training; UE Therex; Manual Therapy Techniques as Appropriate; Coordination Training; Balance Training; Functional Endurance Training; Energy Conservation and Activity Modifications; Wheelchair Safety and Mobility Training; Home Safety and Modification Education; Assistive Technology Education and Training; Adaptive Equipment/DME Education; Positioning; Modalities to prepare for functional training; Home Evaluation as needed; OT IADLS (homemaking skills, med. mgmt, meal prep,etc.) Frequency: 45-90 minutes 5 out of 7 days Responsible Occupational Therapist: Carlos Caba OTR/L Mr. Mitchell will achieve the following: Custodial Goals: Eating LTG: Independent Oral Hygiene LTG: Independent Toileting Hygiene LTG: Independent Shower/Bathe Self LTG: Supervision or touching assistance Upper Body Dressing LTG: Independent Lower Body Dressing LTG: Supervision or touching assistance Chair/[id number] Transfer LTG: Independent Toilet Transfer LTG: Independent Speech Therapy: The following speech therapy plan is recommended for Mr. Mitchell: [facility] Plan of Care & Recommendations (since 05/03/2019) [facility] Evaluation Summary Mr. Vicente is a 73 y/o male referred for speech therapy for evaluation and treatment following recent hospitalization with diagnosis of acute kidney failure unspecified. Past medical history significant for HTN and diabetes. Precautions include: safety. Pt's current functional status is as follows: DIET: Regular with thin liquids. No dysphagia reported or suspected upon admission. Pt. Is edentulous and does not have dentures. Pt. Denies any difficulty with swallowing. Pt. Reports he is able to 'gum' any food he desires to eat without restrictions. Pt. Took all his pills at one time with water with no difficulty COMPREHENSION: Minimal assistance with basic daily needs - pt. Benefited from repetition and slowed speech rate EXPRESSION: Minimal assistance for basic daily naming, word retrieval deficits, fair speech intelligibility SOCIAL INTERACTION: Supervision - additional prompts for increased engagement, participation, eye contact PROBLEM SOLVING: Moderate assistance -Decreased self monitoring and self correction noted in following written directions and clock drawing. Scored a 03/27 on the SLUMS indicating moderate-severe cognitive impairment MEMORY: Minimal assistance - paragraph recall 10/03, delayed wd. retrieval 1/ both from SLUMS SLUMS assessment: 03/27 indicating moderate-severe cognitive deficits. This assessment along with selected sections of Integrative Language/Cognitive Screener indicated deficits in the areas of delayed recall, word retrieval, orientation, attention/visuospatial, and functional problem solving. Pt. Also presented with mild-moderate dysarthria characterized by decreased lingual and labial coordination resulting in overall fair speech intelligibility. Pt. edentulous status is also likely impacting his overall speech intelligibility. These impairments limit ability to participate in functional communication and daily routines safely and independently Pt would benefit from 45-90 minutes daily in individualized and/or group setting, 5 days/week focusing on increased safety and independence. Plan of care to include compensatory strategy retraining, cognitive retraining, and patient/family education. Problem List: Dysarthria; Cognitive Communication Disorder Recommended diet: Regular diet/IDDSI 7 Regular; All liquids-no restrictions Level of Supervision at Meals: Independent [facility] to provide the following services: Basic cognitive communication skills training/strategies; Functional communication skills training/strategies; Ongoing patient/caregiver training; Speech strategies for intelligibility; Verbal expression skills Frequency: 45-90 minutes 5 out of 7 days Responsible Speech Therapist: [facility] Stephen Mr. Mitchell will achieve the following: Custodial Goals: [facility]ING [facility] FLO[facility] Custodial Goal 1 [facility] Custodial Goal 1: Expression Level of Assistance to Meet Elementary Education Tutor Goal 1: Standby (less than 10%) [facility] Elementary Education Tutor Goal 1 Details: Client will be 90% intelligible in conversation with an unfamiliar listener to improve speech intelligibility at home and in the community. [facility] Custodial Goal 1 Expected Achievement Date: 05/26/19 P[facility]ING [facility]LO[facility] Elementary Education Tutor Goal 2 [facility]ING [facility] FLO[facility] Custodial Goal 2: Additional Cognition Level of Assistance to Meet Custodial Goal 2: Standby (less than 10%) [facility] Custodial Goal 2 Details: Patient will improve cognitive linguistic skills to function with Lisa at home and in the community. [facility]LO[facility] Elementary Education Tutor Goal 2 Expected Achievement Date: 05/26/19 Additionally, the patient will receive 24 hour rehabilitation nursing with the following goals: Care Plan Problems/Goals Progressing (8) Absence of infection and prevention of transmission during hospitalization Problem: Infection Disciplines: Nurse, Paralegal Instructor/RN Expected end: - Progressing By Rosalind Snyder RN on 05/12/192230 Free from fall injury Problem: Fall Safety Disciplines: Interdisciplinary Expected end: - Progressing By Rosalind Snyder RN on 05/12/192230 Patient and/or family demonstrate readiness to learn Problem: Knowledge Deficit Disciplines: Nurse, Paralegal Instructor/RN Expected end: - Progressing By Rosalind Snyder RN on 05/12/192230 Patient and/or family verbalizes understanding of education, and/or performs desired skill Problem: Knowledge Deficit Disciplines: Nurse, Paralegal Instructor/RN Expected end: - Progressing By Rosalind Snyder RN on 05/12/192230 Discharge to home or other facility with appropriate resources Problem: Discharge Planning Disciplines: Nurse, Paralegal Instructor/RN Expected end: - Progressing By Rosalind Snyder RN on 05/12/192230 manager supply will develop a plan to 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 burden and 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 in role Problem: Discharge Planning Disciplines: Nurse, Paralegal Instructor/RN Expected end: - Progressing By Rosalind Snyder RN on 05/12/192230 Skin integrity is maintained or improved Problem: Potential for Compromised Skin Integrity Disciplines: Interdisciplinary Expected end: - Progressing By Rosalind Snyder RN on 05/12/192230 Nutritional status is improving Problem: Potential for Compromised Skin Integrity Disciplines: Interdisciplinary Expected end: - Progressing By Rosalind Snyder RN on 05/12/192230 No Outcome (1) Patient's pain/discomfort is manageable Problem: Pain Disciplines: Expected end: - Overall, I expect the patient will stay at our facility until approximately 05/28/2019, with an anticipated discharge destination of Patients own home and a tentative discharge plan of Home with day institute. Duration for therapy services would last until [...] program and returning to home and community. FLORENCIA MOULTON MD 05/13/2019 12:03 PM * PT Treatment Note - Iron Lee PT - 05/13/2019 11:15 AM CST PT Treatment Patient Name: Jules Mitchell Patient Birthdate: 1945 Patient Subjective Report - Patient seated in wc following group session and agreeable to PT session. Pain Assessment Pain Context: Therapy Assessment Prior to Treatment (05/13/191114) Pain Assessment: None/denies pain (05/13/191114) Surface: Indoor and Tile Assistive Device: RW Ambulation Level of Assistance: Minimal Assistance Distance (feet): 27 Gait Analysis: Ambulates 27 feet with FWW and min A with assist of another for wc follow assist dueto unknown ambulation distance with wwr therapeutic intervention provided. Ambulates second bout of 31 feet with FWW and CGA-min A with therapist pulling wc behind. Deviations include decrease right step length, diminished foot clearance, decreased upright posture with forward flexion at hips and increase cues for upright posture with improvement for 10 feet prior to decrease proximity to FWW. Transfer to 1: Stand Transfer from 1: Wheelchair Technique 1: Sit to stand and Stand to sit Transfer Level of Assistance 1: Minimal Assistance Trials/Comments1: Min A requried for force production and for cues for hand placement for both concentric and eccentric control. Transfer to 2: Car Transfer from 2: Wheelchair Technique 2: Stand pivot Transfer Level of Assistance 2: Minimal Assistance Trials/Comments 2: Min A for stand pivot with wwr into/out of car with assist for left LE into car. Seated Position: Seated ther ex performed for improved ROM and strength: AAROM on the left for marching x10, performs marching x20 on the right, ankle DF x20 bilaterally AROM. AAROM of LAQ on left x10, AROM LAQ on right 2x10. Performs heel slides x10 on left and 2x10 on right - Increase difficulty with extension portion of heel slide on left. RLE: Weight-bearing as tolerated LLE: Weight-bearing as tolerated Activity Type: Standing Activity Endurance: Poor Compromised ability to maintain sitting: No Activity comment: Paitent requires seated rest breaks following standing activities. PT Treatment Outcomes:: Safety device reapplied, Cues needed for safety, Patient tolerated treatment well, Goals met for this session and Improved ambulation performance PT Summary:: Patient remained up sitting in chair at end of session with pelvic positioning belt on, chair alarm in place, call light and phone within reach. Patient had meal present and positioned in front of patient. PT Summary Plan of Care: Continue with current plan of care Pain Evaluation and Follow-up Response to Therapy Interventions: Improved mobility, Improved activity tolerance (05/13/19 1200) Pain Reassessment: No pain (05/13/19 1200) Nursing notified of patient's pain assessment: Not indicated - pain score 2 or less (05/13/19 1200) Therapy Minutes Individual Concurrent Co-Treat Time In : 1115 Time Out: 1200 Total Time with Patient (Min): 45 min Missed Minutes : 0 IRON LEE PT 05/13/2019 * OT Group Treatment - Debi Guajardo OT - 05/13/2019 10:30 AM CST Occupational Therapy Group Treatment Patient Name: Jules Mitchell Patient Birthdate: 1945 Patient Subjective Report - Pain Assessment Pain Context: Therapy Assessment Prior to Treatment (05/13/19 1030) Pain Assessment: None/denies pain (05/13/19 1030) Pain Score: 0 - No pain (05/13/19 1030) OT Group Therapy: Name of Group Session:: UE Therex and Motor Skills Group Patient's Individualized Goals for Group Session:: Enhance UE motor control/coordination, Improve functional endurance and Improve upper body strength and endurance Justification for Group Intervention:: To provide psychosocial support and improve participation inoveral rehab program and Facilitate learning through peer interactions Skilled Services Provided:: Activity was graded or modified to meet the patient's needs Education Provided:: B UE therex Patient's Response to Treatment:: Safety device reapplied, Patient tolerated treatment well, Goals met for thie session and Patient is progressing toward STG(s) Progress Towards Goals:: Tolerated treatment with modifications to task as needed Group Note Narrative Summary:: Mr. Mitchell participated in a group treatment session this date to address upper body muscle strength, and endurance to improve overall increase strength and activity tolerance to maximize independence with ADLs, IADLs and transfers as indicated. A group session was usedto enhance peer to peer learning and provide motivation as patient responds well to social environments and interacts positively. Patient's completes B UE dynamic movements to promote strength and endurance for ADLs. Pt completed bicep curls 10 reps x 3, shoulder protraction/retraction 10 reps x 3,shoulder flexion/extension 10 reps x 3, wrist flexion/extension 10 reps x 3, supination/pronation 10 reps x 3, and shoulder internal/external rotation 10 reps x 3 using 2# free weight. Pt required rest break due to fatigue and moderate tactile, visual and verbal cues for proper form and initiation.Pt attempted participating in simple cognitive game with decreased comprehension despite max verbalcues. Pt completed balloon volley for 5 minutes with 1 rest break required due to fatigue and verbal cues required for use of R UE. Pt verbalizes understanding. Pt benefited from participation in theUE therex group treatments as indicated by improved functional strength and endurance. In addition,Pt demonstrates increased extrinsic motivation from peer members to promote psychosocial support. Plan for Continued Interventions:: Continue with current plan of care Pain Evaluation and Follow-up Pain Reassessment: No pain (05/13/19 1115) Nursing notified of patient's pain assessment: Not indicated - pain score 2 or less (05/13/19 1115) Time In : 1030 Time Out: 1115 Breaks/Pauses (Min): 0 mins Time calculation (min): 45 min Missed Minutes : 0 DEBI GUAJARDO OT 05/13/2019 * [facility] Treatment Note - Paz Linn, [facility] - 05/13/2019 9:45 AM GLOVE TAGGER Speech Language Pathologist Treatment Patient Name: Jules Mitchell Patient Birthdate: 1945 Patient Subjective Report - Patient awake and upright in wheelchair in room. Pain Assessment Pain Context: Therapy Assessment Prior to Treatment (05/13/19944) Pain Assessment: None/denies pain (05/13/19944) Cognitive Communication: Basic attention, Insight, Short-term memory, Orientation, Verbal organization and Verbal problem solving Patient/Caregiver Training: Cognitive Communication Disorder, Cognitive strategies, Therapy goals and treatment plan and Completed with patient ST Narrative:: Patient scored 24/30 on orientation log with patient being oriented to city, place, month, and reason for admission but required cues for name of hospital. After delay and education, he was able to recall name of hospital with moderate cues to use environment (water pitcher in room) for recall. Patient was educated on recall strategies of association, writing, repeating with patient requiring max cues to use strategies during structured recall task. He was able to immediately recall items 2 of 3 and able to recall after 3 minute delay 1 of 3 max cues. At end of therapy session,he recalled same information 2 of 3 max cues. He completed thought organization tasks with 80% min cues and increased time for processing. Patient's speech noted to be mumbled and less intelligible in connected speech but likely impacted by fast rate of speech and missing dentition. Overall, patient cooperative during session but presents with flat affect, impaired recall, and basic attention. Continue St. Patient transported to group. Patient remained up sitting in chair at end of session with pelvic positioning belt on, chair alarm in place. ST Session Outcomes: Tolerated treatment well, Patient/family education progressing and Progressingtoward STGs ST Summary Plan of Care: Continue with current plan of care Pain Evaluation and Follow-up Pain Reassessment: No pain (05/13/19 1025) Therapy Minutes Individual Concurrent Co-Treat Time In : 944 Time Out: 1030 Total Time with Patient (Min): 45 min Missed Minutes : 0 PAZ LINN CCC-P[facility]ING [facility] FLOORHAND 05/13/2019 * OT Treatment Note - Chuck Funes OT - 05/13/2019 9:00 AM CST Occupational Therapy Treatment Patient Name: Jules Mitchell Patient Birthdate: 1945 Patient Subjective Report - I'll just wear the same clothes as yesterday, I don't have any others. Pain Assessment Pain Context: Therapy Assessment Prior to Treatment (05/13/19 0900) Pain Assessment: None/denies pain (05/13/19 0900) ADL Status: Grooming: Close Supervision Grooming Where Assessed: Chair Grooming Comments: Pt completed facial care while seated in wheelchair; setup and SBA. Dressing Upper Body: Close Supervision Upper Body Dressing Where Assessed: Sitting in chair Upper Body Dressing Comments: To doff gown and don shirt. Dressing Lower Body: Contact Guard Lower Body Dressing Where Assessed: Sitting in chair and Standing Lower Body Dressing Comments: Pt able to complete threading BLE and pulling up pants over hips; contact guard assist for balance in standing to pull pants over hips. Bed, Chair, Wheelchair Transfer: Minimal Assistance Bed/Chair Transfer to: Wheelchair and Stand Bed/Chair Transfer from: Bed Bed/Chair Transfer Technique: Stand pivot and Sit to stand Assistive Devices Used: Walker Bed/Chair Transfer Comments: Pt completed multiple sit to stand and stand pivot transfer during session; min assist for decreased force production and safety awareness. Standing Tolerance Time (mins): 5 minutes Activity: Zacarias bag toss Functional Standing Tolerance Comments: To improve standing balance and tolerance. Standing Assist: Close Supervision Treatment, Outcomes and Plan: OT Narrative:: Session focused on improving pt's activity endurance, ADL independence, direction follow, and standing balance/tolerance. He would benefit from continued skilled therapy in order to further improve his functional mobility and ADL independence for safe return to home. Patient remainedup sitting in chair at end of session with pelvic positioning belt on, chair alarm in place, call light and phone within reach. OT Treatment Outcomes:: Patient tolerated treatment well and Patient is progressing toward STG(s) OT Summary Plan of Care: Continue with current plan of care Pain Evaluation and Follow-up Pain Reassessment: No pain (05/13/19940) Nursing notified of patient's pain assessment: Not indicated - pain score 2 or less (05/13/19940) Therapy Minutes Individual Concurrent Co-Treat Time In : 0900 Time Out: 0945 Breaks/Pauses (Min): 0 mins Total Time with Patient (Min): 45 min Missed Minutes : 0 CHUCK FUNES OT 05/13/2019 * Plan of Care - Rosalind Snyder RN - 05/12/2019 10:31 PM CST Problem: Infection Goal: Absence of infection and [...] facility with appropriate resources Outcome: Progressing Goal: manager supply will develop a plan to 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 burden and 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 in role Outcome: Progressing Problem: Knowledge Deficit Goal: Patient/family/caregiver [...] is Maintained or Improved Outcome: Progressing Problem: Case Management Discharge Goals Goal: Identify patient's discharge goals Outcome: Progressing Goal: Coordinate Safe Discharge Plan Outcome: Progressing Goal: Work with the treatment team to assess caregiver capability Outcome: Progressing * Plan of Care - Jessica Emerson RN - 05/12/2019 4:01 PM CST Problem: Infection Goal: Absence of infection and [...] facility with appropriate resources Outcome: Progressing Goal: manager supply will develop a plan to 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 burden and 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 in role Outcome: Progressing Problem: Knowledge Deficit Goal: Patient/family/caregiver [...] is Maintained or Improved Outcome: Progressing Problem: Case Management Discharge Goals Goal: Identify patient's discharge goals Outcome: Progressing Goal: Coordinate Safe Discharge Plan Outcome: Progressing Goal: Work with the treatment team to assess caregiver capability Outcome: Progressing * Assessment & Plan Note - Florencia Moulton MD - 05/12/2019 1:42 PM CSTAssociated Problem(s): End stage renal failure on dialysis Dialysis started * OT Initial Evaluation - Carlos Caba OT - 05/12/2019 10:39 AM CST Occupational Therapy Evaluation Patient Name: Jules Mitchell Patient Birthdate: 1945 Pain Assessment Pain Context: Therapy Assessment Prior to Treatment (05/12/19 1039) Pain Assessment: None/denies pain (05/12/191038) Clinical Alerts Clinical Alerts: Falls, Skin (05/12/191043) Home Living Type of Home: Apartment (05/12/191043) # steps into the home: 4 (05/12/191043) Home Layout: One level(Apartment is on 1st level) (05/12/191043) Bathroom Shower/Tub: Walk-in shower (05/12/191043) Bathroom Accessibility: Walk-in Shower (05/12/191043) DME Currently Owned: Single point cane (05/12/191043) Home Evaluation Required?: To be assessed (05/12/191043) Prior Function Level of [place]: Independent with ADLs and function transfers;Independent with ambulation;Assist with IADLs(Nephew assists with IADLs) (05/12/191043 : Carlos Caba OT) Lives With: Family(Nephew ) (05/12/191043 : Carlos Caba OT) Receives Help From: Family (05/12/191043 : Carlos Caba OT) Vocational: Retired (05/12/191043 : Carlos Caba OT) Occupation/Work History: Current Work Status: Retired Prior Functional Status: ADL Required Assistance: Independent DME Currently Owned: Single point cane Drove Vehicle Prior to Admission: No Required assistance for mobility?: No SIGNIFICANT HABITS AND ROUTINES: Significant Habits and Routines: Roles: Uncle. Interests: [employer]. Previous Living Status: Lives with others and Apartment or Condominum (Nephew) ADL Assessment:: Eating Assistance Needed: Independent Physical Assistance Level: No physical assistance Comment: Pt able to open all necessary items. Eating - CARE Score: 6 Oral Hygiene Comment: Unable to assess - pt does not have dentures available. Reason if not Attempted: Environmental limitations Oral Hygiene - CARE Score: 10 Toileting Hygiene Assistance Needed: Physical assistance Physical Assistance Level: 25%-49% Comment: Pt requires assist with 1/3 steps. Pt requires assist to doff clothing secondary to impaired balance. Pt able to don clothing following toileting and complete cruz-care with minimal assist for support during dynamic balance. Toileting Hygiene - CARE Score: 3 Shower/Bathe Self Assistance Needed: Physical assistance Physical Assistance Level: 25%-49% Comment: Pt requires assist with drying lower legs and buttocks. Pt requires minimal assist for standing balance while washing buttocks. Pt requires verbal cues for safety and increased time due to impaired functional endurance. Shower/Bathe Self - CARE Score: 3 Upper Body Dressing Assistance Needed: Set-up / clean-up Physical Assistance Level: No physical assistance Comment: Pt able to don/doff shirt with setup assistance. Upper Body Dressing - CARE Score: 5 Lower Body Dressing Assistance Needed: Physical assistance Physical Assistance Level: 50%-74% Comment: Pt able to thread LLE through pants and unthread pants. Pt requires assist with threading underwear and donning pants/underwear over hips. Lower Body Dressing - CARE Score: 2 Putting On/Taking Off Footwear Assistance Needed: Physical assistance Physical Assistance Level: 25%-49% Comment: Pt requires assist to doff L sock secondary to impaired functional reach. Pt able to doff R sock and don/doff R/L sock and shoe with increased time and CGA for adjustments. Putting On/Taking Off Footwear - CARE Score: 3 Roll Left and Right Assistance Needed: Physical assistance Physical Assistance Level: Less than 25% Comment: per PT report. Roll Left and Right - CARE Score: 3 Sit to Lying Assistance Needed: Physical assistance Physical Assistance Level: Less than 25% Comment: per PT report - to elevate LLE. Sit to Lying - CARE Score: 3 Lying to Sitting on Side of Bed Assistance Needed: Physical assistance Physical Assistance Level: Less than 25% Comment: per PT report to manuever LLE. Lying to Sitting on Side of Bed - CARE Score: 3 Sit to Stand Assistance Needed: Physical assistance Physical Assistance Level: Less than 25% Comment: Pt requires minimal assist for sit <> stand from wheelchair with hand held assist and min assist for force production to achieve upright standing. Sit to Stand - CARE Score: 3 Chair/[id number] Transfer Assistance Needed: Physical assistance Physical Assistance Level: Less than 25% Comment: Pt requires minimal assist for bed/chair transfer with hand held assist and min assist forforce production to achieve upright standing. Chair/[id number]-[id number] Transfer - CARE Score: 3 Toilet Transfer Assistance Needed: Physical assistance Physical Assistance Level: Less than 25% Comment: Pt requires hand held assist and steadying assist during transfer for safety due to impaired balance. Toilet Transfer - CARE Score: 3 PERFORMANCE SKILLS ASSESSMENT: Performance Skills Assessment: Behavioral/Affective Observations: Withdrawn and Guarded (Pt has very flat affect throughout session and minimally converses with therapist. Pt appears to have delayed processessing and requires repetition/cues for comprehension. ) Cognitive Skills: Oriented to personal circumstance, Decreased orientation, Decreased recall of biographical information, Decreased safety awareness or impaired judgement, Decreased awareness of deficits and Further evaluation required (Pt unable to report entirety of personal circumstance, unable to report date/time. Pt reports it is February 1920. ) Functional Endurance: Functional Endurance: Impaired (Pt appears fatigued throughout session and requires frequent rest breaks. 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 Chester provides no assistance with tasks. A device may or may not have been used. 5: Set-up or clean-up assistance. Chester sets up or cleans up, but does not assist with tasks. Chester may have assisted prior to or following the activity. 4: Supervision or touching assistance. Chester provides verbal cues or touching/steadying or contactguard assistance. Assistance may be provided throughout the activity or intermittently. 3: Partial/moderate assistance. Chester does less than half the effort. Chester lifts, holds, or supports trunk or limbs, but provides less than half the effort. 2: Substantial/maximal assistance. Chester does more than half the effort. Chester lifts or holds trunk or limbs, and provides more than half the effort. 1: Dependent. Chester does all of the effort, or the [...] due to medical condition or safety concerns Elementary Education Tutor Goals: Status on Admission Goal Eating - CARE Score: 6 (05/12/19 114) Eating LTG: Independent (05/12/19 115) Oral Hygiene - CARE Score: 10 (05/12/19 114) Oral Hygiene LTG: Independent (05/12/19 115) Toileting Hygiene - CARE Score: 3 (05/12/19 114) Toileting Hygiene LTG: Independent (05/12/19 115) Shower/Bathe Self - CARE Score: 3 (05/12/19 114) Shower/Bathe Self LTG: Supervision or touching assistance (05/12/19 115) Upper Body Dressing - CARE Score: 5 (05/12/19 114) Upper Body Dressing LTG: Independent (05/12/19 115) Lower Body Dressing - CARE Score: 2 (05/12/19 114) Lower Body Dressing LTG: Supervision or touching assistance (05/12/19 115) Putting On/Taking Off Footwear - CARE Score: 3 (05/12/19 114) Roll Left and Right - CARE Score: 3 (05/12/19 114) Sit to Lying - CARE Score: 3 (05/12/19 114) Lying to Sitting on Side of Bed - CARE Score: 3 (05/12/19 114) Sit to Stand - CARE Score: 3 (05/12/19 114) Chair/[id number]-Olcfg Transfer - CARE Score: 3 (05/12/19 114) Chair/Mpk-hn-Bhwnl Transfer LTG: Independent (05/12/19 115) Toilet Transfer - CARE Score: 3 (05/12/19 114) Toilet Transfer LTG: Independent (05/12/19 115) OT Short Term Goal 1: Focus: Toileting Hygiene Details: Pt will complete toileting with minimal assistance using AE, AD as needed Expected Achievement Date: 05/19/2019 Goal Status: Established OT Short Term Goal 2: Focus: Shower/Bathe Details: Pt will complete bathing with contact guard assistance using shower chair/AE as needed Expected Achievement Date: 05/19/2019 Goal Status: Established OT Short Term Goal 3: Focus: Upper Body Dressing Details: Pt will complete UB dressing with modified independence Expected Achievement Date: 05/19/2019 Goal Status: Established OT Short Term Goal 4: Focus: Lower Body Dressing Details: Pt will complete LB dressing with minimal assistance using AE, AD as needed Expected Achievement Date: 05/19/2019 Goal Status: Established OT Short Term Goal 5: Focus: Chair/Bed Transfer Details: Pt will complete bed/chair transfer with CGA using assistive device as needed Expected Achievement Date: 05/19/2019 Goal Status: Established OT Short Term Goal 6: Focus: Toilet Transfer Details: Pt will complete toilet transfer with CGA using AD as needed Expected Achievement Date: 05/19/2019 Goal Status: Established Plan of Care and Recommendations: Evaluation Summary:: Mr. Mitchell is a 73 year old male who presents with encephalopathy, acute kidney injury, and debility.His pertinent past medical history includes: HTN, prostate CA, orchiectomy, shingles, and T2DM. Prior to admission, Mr. Mitchell was independent with ADL's prior to admission and receives assist with IADL's from nephew. Currently, Mr. Mitchell presents with impaired functional endurance, pain, decreased transfer status, impaired standing tolerance/balance, impaired cognition, decreased safety awareness, impaired strength and impaired functional reach limiting his independence. Mr. Mitchell presents with moderate deficits limiting independence and safety with self- care/functional mobility. Mr. Mitchell would benefit from continued intensive occupational therapy in the inpatient rehabilitation setting to maximize safety/independence with self-care and discharge to least restrictive envir onment. Problem List:: Activity Tolerance, Cognitive deficits, Community access, Community deficits, Leisure skill, Mobility, Decreased functional endurance, Decreased functional status in ADL's, Impaired balance, Decreased transfer status and Decreased upper body strength OT to Provide the Following Services:: ADL and Transfer Training, UE Therex, Manual Therapy Techniques as Appropriate, Coordination Training, Balance Training, Functional Endurance Training, Energy Conservation and Activity Modifications, Wheelchair Safety and Mobility Training, Home Safety and Lisa fication Education, Assistive Technology Education and Training, Adaptive Equipment/DME Education, Positioning, Modalities to prepare for functional training, Home Evaluation as needed and OT IADLS (homemaking skills, med. mgmt, meal prep,etc.) Frequency:: 45-90 minutes 5 out of 7 days Therapist that Will Oversee Plan of Care:: Carlos Caba OTR/L Pain Evaluation and Follow-up Pain Reassessment: No pain (05/12/19 114) Nursing notified of patient's pain assessment: Not indicated - pain score 2 or less (05/12/19 1140) Therapy Minutes Time In : 1039 Time Out: 1201 Time calculation (min): 82 min Missed Minutes : -8 CARLOS CABA OT 05/12/2019 * Post Admission Assessment - Florencia Moulton MD - 05/12/2019 10:14 AM GLOVE TAGGER Post Admission Assessment: I have had the [...] provide comprehensive inpatient rehabilitation, which may include PT, OT, PULLING UNIT FLOORHAND and neuropsychology and supportive services to improve functional outcome of impaired mobility, ADLs, transfers, and self-care. FLORENCIA MOULTON MD * PT Initial Evaluation - Kylie Sanchez PT - 05/12/2019 9:45 AM GLOVE TAGGER Physical Therapy Evaluation Patient Name: Jules Mitchell Patient Birthdate: 1945 Pain Assessment Pain Context: Therapy Assessment Prior to Treatment (05/12/19944) Pain Assessment: NRS 0-10 (05/12/19944) Pain Score: 10 (05/12/19944) Pain Type: Acute pain (05/12/19944) Pain Location: Hip, Leg (05/12/19944) Pain Orientation: Left (05/12/19944) Pain Descriptors: Throbbing (05/12/19944) Pain Frequency: Constant/continuous (05/12/19944) Aggravating Factors: Activity Duration (05/12/19944) Pre-therapy pain intervention required: Patient expressed pain is tolerable/able to proceed (05/12/19944) Pain Interventions Education Provided: Patient (05/12/19944) Non-Pharmacologic Pain Interventions: Distractions, Exercise/Activity, Position/Reposition, Relaxation, Rest (05/12/19944) Emotional/Spiritual Pain Interventions: Empathetic Discussion, Emotional Support (05/12/19944) Prior Function Level of [place] Common: Independent with ADLs and function transfers;Independent with ambulation;Assist with IADLs(Nephew assists with IADLs) (05/12/19 1044 : Carlos Caba OT) Lives With: Family(Nephew ) (05/12/19 1044 : Carlos Caba OT) Receives Help From: Family (05/12/19 1044 : Carlos Caba OT) Vocational: Retired (05/12/19 1044 : Carlos Caba OT) Patient Subjective Report - Pt lying in bed upon entry. Agreeable to therapy evaluation. Posture: Impaired Impaired Posture: Forward Head Is Edema Present: No Light Touch: Not tested (to be further assessed) Sharp/Dull: Not tested (to be further assessed) Sensation Comments:: To be further assessed RLE Proprioception: Not tested (to be further assessed) LLE Proprioception: Not tested (to be further assessed) Coordination: Impaired Coordination and Movement Description: Other (comment) (Delayed overall: rapid alternating ankle DF/PF) Overall Cognitive Status: Impairments impacting function Oriented to Time: No (narrative) (It's February of 1920) Bed Mobility: Performed on bed and Short sit to - from supine Bed Mobility Level of Assistance: Minimal Assistance Bed Mobility Comment: With bed flat and no use of bedrails; pt requires Min A for LE management (L LE) due to increased pain. Increased time to achieve upright sitting position. Surface: Even surface and Indoor Assistive Device: No Device (Prior level) Ambulation Level of Assistance: Total Assistance/Dependent Distance (feet): 6 Gait Analysis: Pt ambulates 1 x 6 feet with Mod A for UE support. Pt demonstrates significantly decreased step length and stance time on L LE. Pt also demonstrates significantly decreased foot clearance (modified shuffling gait pattern). Seated rest break upon completion due to increased fatigue. Rails: Bilateral Stairs Level of Assistance: Minimal Assistance Stairs Height of Step: 6-inch Stair Analysis: Pt ascends/descends with anterior approach up and posterior approach down, leading up with R LE and down with L LE. Pt requires Min A for safety and force production/controlled lowering. Grealty increased time to complete and seated rest break upon completion. Number of Steps: 4 Transfer to 1: Wheelchair Transfer from 1: Bed Technique 1: Stand pivot Transfer Level of Assistance 1: Minimal Assistance Trials/Comments1: Pt requires UE support and greatly increased time to complete for force production and pivot. Pt performs with no AD (prior level). Transfer to 2: Stand Transfer from 2: Wheelchair Technique 2: Sit to stand and Stand to sit Transfer Level of Assistance 2: Minimal Assistance Trials/Comments 2: Min A for force production and increased use of UE support for force production.Pt requires increased time to complete. Pt demonstrates reaching back to armrests prior to initiating sitting back to chair. Wheelchair Level of Assistance: Minimal Assistance Distance Traveled in Wheelchair (feet): 54 Wheelchair Type: Manual Wheelchair cushion: Pressure relieving Surface: Even surface and Indoor Propulsion Method: Bilateral upper extremity Wheelchair Propulsion Level of Assistance: Minimal Assistance Wheelchair Analysis: Min A for steering and greatly increased time to complete due to decreased overall force production. Were respiratory Interventions provided?: No LLE Assessment: Exceptions to WFL (Significantly limited due to pain: 2+/5 for hip flexion noted with noted increased L LE pain) [facility] PT SPECIAL TESTS AND OUTCOMES: Special Test and Outcome Measures: 2 Minute walk test 05/12/19 1000 2 Minute Walk Test Performed 2 Minute Walk Test? Yes Distance Walked (Feet) 6 Feet (with no AD (prior level) and Total A (Mod A + w/c follow)) Patient's and/or Caregiver's Goals: Goals (in their own words): To get back to healthy and get that leg working better. I want to be able to walk better. Goals Generated By:: Patient generated response with cues Mobility Assessment: Car Transfer Comment: Unsafe to perform at this time. Reason if not Attempted: Safety concerns Car Transfer - CARE Score: 88 Walk 10 Feet Comment: Ambulates up to 6 feet with Total A (Mod A x 1 + close w/c follow) Reason if not Attempted: Safety concerns Walk 10 Feet - CARE Score: 88 Walk 50 Feet with Two Turns Reason if not Attempted: Safety concerns Walk 50 Feet with Two Turns - CARE Score: 88 Walk 150 Feet Reason if not Attempted: Safety concerns Walk 150 Feet - CARE Score: 88 Walking 10 Feet on Uneven Surfaces Comment: Unsafe to perform at this time. Reason if not Attempted: Safety concerns Walking 10 Feet on Uneven Surfaces - CARE Score: 88 1 Step (Curb) Assistance Needed: Adaptive equipment, Physical assistance Physical Assistance Level: Less than 25% Comment: Up/down 4 steps at 6 inches each with B HR and Min A 1 Step (Curb) - CARE Score: 3 4 Steps Assistance Needed: Adaptive equipment, Physical assistance Physical Assistance Level: Less than 25% Comment: Up/down 4 steps at 6 inches each with B HR and Min A 4 Steps - CARE Score: 3 12 Steps Reason if not Attempted: Safety concerns 12 Steps - CARE Score: 88 Picking Up Object Comment: Unsafe to perform at this time. Reason if not Attempted: Safety concerns Picking Up Object - CARE Score: 88 Wheel 50 Feet with Two Turns Assistance Needed: Adaptive equipment, Physical assistance Physical Assistance Level: Less than 25% Comment: Propels up to 54' with Min A prior to requiring total assistance for all remaining w/c propulsion. Wheel 50 Feet with Two Turns - CARE Score: 3 Type of Wheelchair/Scooter: Manual Wheel 150 Feet Assistance Needed: Adaptive equipment, Physical assistance Physical Assistance Level: 75% or more Comment: Propels up to 54' with Min A prior to requiring total assistance for all remaining w/c propulsion. Wheel 150 Feet - CARE Score: 2 Type of Wheelchair/Scooter: Manual CARE Score Mario: 6: Independent. Chester provides no assistance with tasks. A device may or may not have been used. 5: Set-up or clean-up assistance. Chester sets up or cleans up, but does not assist with tasks. [place] may have assisted prior to or following the activity. 4: Supervision or touching assistance. [place] provides verbal cues or touching/steadying or contactguard assistance. Assistance may be provided throughout the activity or intermittently. 3: Partial/moderate assistance. Chester does less than half the effort. Chester lifts, holds, or supports trunk or limbs, but provides less than half the effort. 2: Substantial/maximal assistance. Chester does more than half the effort. Chester lifts or holds trunk or limbs, and provides more than half the effort. 1: Dependent. Chester does all of the effort, or the [...] due to medical condition or safety concerns Elementary Education Tutor Goals: Status on Admission Goal Car Transfer - CARE Score: 88 (05/12/191452) Car Transfer LTG: Independent(Pt to perform car transfer mobility with LRAD and Mod I to demonstrate safe mobility in/out of the car to return to home. )(05/12/191456) Walk 10 Feet - CARE Score: 88 (05/12/191452) Walk 50 Feet with Two Turns - CARE Score: 88 (05/12/191452) Walk 50 Feet with Two Turns LTG: Independent(Pt to ambulate up to 50 feet with LRAD and Mod I in order to demonstrate safe mobility withinthe home alone throughout the day. ) (05/12/191456) Walk 150 Feet - CARE Score: 88 (05/12/191452) Walking 10 Feet on Uneven Surfaces - CARE Score: 88 (05/12/191452) 1 Step (Curb) - CARE Score: 3 (05/12/191452) 4 Steps - CARE Score: 3 (05/12/191452) 12 Steps - CARE Score: 88 (05/12/191452) 12 Steps LTG: Independent(Pt to ascend/descend at least 12 steps in order to demonstrate safe mobility in/out of the home (6 steps) with 1 HR and LRAD and Mod I. ) (05/12/191456) Picking Up Object - CARE Score: 88 (05/12/191452) Wheel 50 Feet with Two Turns - CARE Score: 3 (05/12/191452) Wheel 150 Feet - CARE Score: 2 (05/12/191452) PT Other Custodial Goals Most Recent Value Other PT Elementary Education Tutor Goals Other Goals - Custodial Elementary Education Tutor 1 Filed on: 05/12/20191458 Other Custodial Goal 1 Pt to perform 2MWT with a distance of at least 40 feet in order to demonstrate improved overall mobility. Filed on: 05/12/20191458 Other Custodial Goal 1 Status Established Filed on: 05/12/20191458 Expected Achievement Date 06/02/19 Filed on: 05/12/20191458 PT Short Term Goal 1: Focus: Car Transfer Details: Pt to perform car transfer with LRAD and CGA. Expected Achievement Date: 05/19/2019 Goal Status: Established PT Short Term Goal 2: Focus: Walking Details: Pt to ambulate up to 20 feet with LRAD and Min A. Expected Achievement Date: 05/19/2019 Status: Established PT Short Term Goal 3: Focus: Steps Details: Pt to ascends/descend at least 6 steps at 6 inches each and 1 HR with Min A. Expected Achievement Date: 05/19/2019 Status: Established PT Short Term Goal 4: Focus: Picking up Object Details: Pt to perform picking up an object with LRAD and CGA Expected Achievement Date: 05/19/2019 Goal Status: Established PT Short Term Goal 5: Focus: Other Details: Pt to perform TUG. Expected Achievement Date: 05/19/2019 Goal Status: Established Evaluation Summary:: Mr. Jules Mitchell is a 73 year old male with a primary problem of debility. (Per patient report, he notes his left leg pain is what caused him to be unable to get around like he used to). PREVIOUS MEDICAL HISTORY/COMORBIDITY LIST: chronic kidney disease (stage 5), hypercholesterolemia, HTN, prostate cancer, shingles, DM II, orchiectomy. HOME SITUATION: lives with nephew in a 1st floor apartment with 6 steps to enter with handrail on the left. Once inside there are no steps to use. ASSISTANCE AVAILABLE UPON RETURN TO HOME: limited help from nephew as he works during the day. CURRENTLY OWNED DME: 2 straight canes (uses them with bilateral upper extremities recently). PRIOR LEVEL OF FUNCTION: able to ambulate with no assistive device at home and in the community with no assistance. His current functional mobility is as follows. TRANSFERS: Sit to and from stand with minimal assistance. Stand pivot transfer with minimal assistance. Car transfer with UNSAFE. GAIT: Ambulates up to 6 feet with total assistance (moderate assistance x 1 + close wheelchair follow) when using no assistive device (prior level). Ambulates across uneven surface with UNSAFE ELEVATIONS Ascends/descends 4 steps at 6 inches each with bilateral handrail support and minimal assistance. Ascends/descends 6 inch curb step (see above). WHEELCHAIR ASSESSMENT: propels manual wheelchair 54 feet with bilateral upper extremities and minimal assistance. OBJECT AVIATION MAINTENANCE TECHNICIAN: Picks up object from the floor with UNSAFE Standardized Assessment: 2 Minute Walk Test: 6 feet with no assistive device (prior level) and total assistance (moderate assistance x 1 + close wheelchair follow). He presents with the below listed impairments. Due to his previous medical history as well as his current level of function, he has fair rehab potential. He would benefit from skilled intensive inpatient rehabilitation services at this time in order to further improve upon the below listed impairments and prepare for return to home. Problem List:: Decreased cognition, Decreased endurance, Decreased mobility, Decreased range of motion, Decreased tolerance to handling, Impaired balance, Impaired elevation ability, Impaired judgement, Impaired Neuromm Strength, Pain, Reluctance to stand and weight bear through lower extremities, Decreased coordination, Decreased safety awareness, Decreased strength, Impaired ambulation ability,Impaired bed mobility, Impaired transfer ability and Impaired wheelchair management Additional Pertinent Information: PREVIOUS MEDICAL HISTORY/COMORBIDITY LIST: chronic kidney disease(stage 5), hypercholesterolemia, HTN, prostate cancer, shingles, DM II, orchiectomy. PT to Provide the Following Services:: Aerobic/Endurance conditioning, Balance/proprioceptive training, Education - patient/family, Elevation training, Gait training, Therapeutic activities, Wheelchair safety and mobility training, Adaptive equipment/DME prescription and application, Body mechanics/ergonomics, Fall prevention, Home Exercise Program (HEP) prescription, Neuromuscular re- education, Therapeutic exercise, Therapeutic modalities - cold therapy and Therapeutic modalities - heat therapy Frequency of PT: 45-90 minutes 5 out of 7 days Therapist that Will Oversee Plan of Care:: Kylie Sanchez, PT Pain Evaluation and Follow-up Response to Therapy Interventions: Improved activity tolerance, Improved mobility, Improved positioning, Decreased complaints of pain (05/12/19 1038) Pain Reassessment: No pain (05/12/19 1038) Nursing notified of patient's pain assessment: Primary Nurse, Not indicated - pain score 2 or less (05/12/19 1038) Therapy Minutes Time In : 0945 Time Out: 1038 Time calculation (min): 53 min Missed Minutes : 8 KYLIE SANCHEZ PT 05/12/2019 * PULLING UNIT FLOORHAND Swallowing and Communication Evaluation - [facility] - 05/12/2019 9:00 AM CST Speech Language Pathologist Communication Evaluation Patient Name: Jules Mitchell Patient Birthdate: 1945 Patient Subjective Report - I don't know why they are giving me so many pills Pain Assessment Pain Context: Therapy Assessment During Treatment (05/12/19904) Pain Assessment: NRS 0-10 (05/12/19904) Pain Score: 10 (05/12/19904) Pain Location: Leg (05/12/19904) Pain Orientation: Left (05/12/19904) Pain Descriptors: Discomfort (05/12/19904) Pain Onset: Other (Comment)(its been hurting all night) (05/12/19904) Prior Function Level of [place] Common: Independent with ADLs and function transfers;Independent with ambulation;Assist with IADLs(Nephew assists with IADLs) (05/12/19 1044 : Carlos Caba OT) Lives With: Family(Nephew ) (05/12/19 1044 : Carlos Caba OT) Receives Help From: Family (05/12/19 1044 : Carlos Caba OT) Vocational: Retired (05/12/19 1044 : Carlos Caba OT) Pertinent history: Diabetes Additional Pertinent Information: Hypercholesterolemia, hypertension, prostate cancer, shingles Auditory and visual status/observations: Hearing WFL Diet at current time: Regular diet/IDDSI 7 Regular, All liquids-no restrictions and Pills can be taken with recommended liquid consistency Oral peripheral speech mechanism: Decreased lingual coordination, Dysarthria and Decreased labial ROM Dentition and oral health status: Edentulous and Other (comment) (Patient reports he does not have dentures) Respiratory status - tracheostomy tube: Room air Comprehension Deficits: Complex conversation Cognitive Deficits: Abstract reasoning, Awareness/ Insight, Functional problem solving, Further assessment indicated, Information processing- complex, Orientation, Organization, Planning and sequencing, Slow processing, Verbal /thought organization, Verbal reasoning, Word finding and Visual attention Dysarthria Symptoms: Articulation, Fair intelligibility, Intelligibility- phrase/sentence level, Intelligibility- conversational level and Oral motor function Special Test and Outcome Measures: [facility] Status Examination Goals (in their own words): To get out of here and get better. To walk on my own like I use to walk. Goals Generated By:: Patient generated response independently FIM: Comprehension Did the patient complete the activity?: Yes What is the patient's usual mode of comprehension?: Auditory How complex were the patient's conversation and the given directions?: Basic daily needs Did you help the patient?: Yes How much prompting did you give the patient?: Minimal assistance (10% to 25%) Comprehension FIM Score: 4 Expression Did the patient complete the activity?: Yes What is the patient's usual mode of expression?: Vocal How complex were the patient's ideas?: Basic needs and ideas Did you help the patient?: Yes How much prompting did you give the patient?: Minimal assistance (10% to 25%) Expression FIM Score: 4 Social Interaction Did the patient complete the activity?: Yes Did you help the patient?: Yes How much direction did you give the patient?: Supervision (less than 10%) What types of supervision assistance did you give the patient?: Monitoring Social Interaction FIM Score: 5 Problem Solving Did the patient complete the activity?: Yes How complex were the problems that the patient solved?: Routine problems only Did you help the patient?: Yes How much direction did you give the patient?: Moderate assistance (26% to 50%) Problem Solving FIM Score: 3 Memory Did the patient complete the activity?: Yes Did you help the patient?: Yes How much prompting did you give the patient?: Moderate assistance (26% to 50%) Memory FIM Score: 3 Quality Scores Admission: Hearing, Speech, and Vision Expression of Ideas and Wants: Some difficulty Understanding Verbal and Non-Verbal Content: Usually understands Brief Interview for Mental Status (BIMS) Repetition of Three Words (First Attempt): 3 Temporal Orientation: Year: Missed by more than 5 years Temporal Orientation: Month: Accurate within 5 days Temporal Orientation: Day: Incorrect Recall: Sock: Yes, no cue required Recall: Blue: Yes, no cue required Recall: Bed: Yes, no cue required BIMS Summary Score: 11 Custodial Goals: Goal P[employer]ING [employer]LO[employer] Elementary Education Tutor Goal 1 [employer] Custodial Goal 1: Expression (05/12/19 1352) Level of Assistance to Meet Custodial Goal 1: Standby (less than 10%) (05/12/19 135) [employer] Elementary Education Tutor Goal 1 Details: Client will be 90% intelligible in conversation with an unfamiliar listener to improve speech intelligibility at home and in the community. (05/12/19 135) [employer] Elementary Education Tutor Goal 1 Expected Achievement Date: 05/26/19 (05/12/19 135) P[employer]LO[employer] Custodial Goal 2 P[employer]LO[employer] Custodial Goal 2: Additional Cognition (05/12/191351) Level of Assistance to Meet Elementary Education Tutor Goal 2: Standby (less than 10%) (05/12/19 135) [employer] Custodial Goal 2 Details: Patient will improve cognitive linguistic skills to function with Lisa at home and in the community. (05/12/19 135) [employer] Elementary Education Tutor Goal 2 Expected Achievement Date: 05/26/19 (05/12/19 135) Additional Status & Goals: N/A [employer] Short Term Goal 1: Focus: Expression Level of Assistance to Meet Short Term Goal: Min assist (10-24%) Details: Client will utilize speech intelligibility strategies produce words in sentences with 90%%acc. Mod I, with consistency to improve speech intelligibility for daily tasks. Expected Achievement Date: 05/19/2019 Goal Status: Established [employer] Short Term Goal 2: Focus: Additional Cognition Level of Assistance to Meet Short Term Goal: Standby (less than 10%) Details: Pt. Will respond to orientation log question with a score of of 25/30. Expected Achievement Date: 05/19/2019 Goal Status: Established [employer] Short Term Goal 3: Focus: Additional Cognition Level of Assistance to Meet Short Term Goal: Standby (less than 10%) Details: Patient will recall 12 items in a concrete category in 60'' Jade., with consistency, to improve verbal fluency and thought organization for daily activities. Expected Achievement Date: 05/19/2019 Goal Status: Established [employer] Short Term Goal 4: Focus: Additional Cognition Level of Assistance to Meet Short Term Goal: Standby (less than 10%) Details: Patient will complete basic attention to detail tasks with 85% acc. Mod I, to improve attention for daily activities Expected Achievement Date: 05/19/2019 Goal Status: Established [employer] Short Term Goal 5: Focus: Memory Level of Assistance to Meet Short Term Goal: Min assist (10-24%) Details: Patient will utilize memory strategies to perform delayed recall tasks (5-15 minute delay) with 80% acc. Mod I, to improve memory for daily tasks. Expected Achievement Date: 05/19/2019 Goal Status: Established [employer] Short Term Goal 6: Focus: Additional Cognition Level of Assistance to Meet Short Term Goal: Standby (less than 10%) Details: Patient will complete functional problem solving tasks with 85% acc. to improve organization, reasoning, and planning for daily activities. Expected Achievement Date: 05/19/2019 Goal Status: Established Evaluation Summary: Mr. Vicente is a 73 y/o male referred for speech therapy for evaluation and treatment following recent hospitalization with diagnosis of acute kidney failure unspecified. Past medical history significant for HTN and diabetes. Precautions include: safety. Pt's current functional status is as follows: DIET: Regular with thin liquids. No dysphagia reported or suspected upon admission. Pt. Is edentulous and does not have dentures. Pt. Denies any difficulty with swallowing. Pt. Reports he is able to 'gum' any food he desires to eat without restrictions. Pt. Took all his pills at one time with waterwith no difficulty COMPREHENSION: Minimal assistance with basic daily needs - pt. Benefited from repetition and slowedspeech rate EXPRESSION: Minimal assistance for basic daily naming, word retrieval deficits, fair speech intelligibility SOCIAL INTERACTION: Supervision - additional prompts for increased engagement, participation, eye contact PROBLEM SOLVING: Moderate assistance -Decreased self monitoring and self correction noted in following written directions and clock drawing. Scored a 03/27 on the SLUMS indicating moderate-severe cognitive impairment MEMORY: Minimal assistance - paragraph recall 10/03, delayed wd. retrieval 05/02 both from SLUMS SLUMS assessment: 03/27 indicating moderate-severe cognitive deficits. This assessment along with selected sections of Integrative Language/Cognitive Screener indicated deficits in the areas of delayed recall, word retrieval, orientation, attention/visuospatial, and functional problem solving. Pt. Also presented with mild-moderate dysarthria characterized by decreased lingual and labial coordination resulting in overall fair speech intelligibility. Pt. edentulous status is also likely impactinghis overall speech intelligibility. These impairments limit ability to participate in functional communication and daily routines safely and independently Pt would benefit from 45-90 minutes daily in individualized and/or group setting, 5 days/week focusing on increased safety and independence. Plan of care to include compensatory strategy retraining, cognitive retraining, and patient/family education. Recommended diet: Regular diet/IDDSI 7 Regular and All liquids-no restrictions Level of supervision at meals recommended: Independent Therapy Recommendations: Speech therapy services recommended Treatment plan discussed with: Patient Patient/Caregiver Training: Cognitive Communication Disorder, Cognitive strategies, Communication strategies, Completed with patient, Dysarthria and Therapy goals and treatment plan Problem List:: Dysarthria and Cognitive Communication Disorder P[employer]LO[employer] to Provide the Following Cognitive, Language, Speech Services:: Basic cognitive communication skills training/strategies, Functional communication skills training/strategies, Ongoing patient/caregiver training, Speech strategies for intelligibility and Verbal expression skills Frequency:: 45-90 minutes 5 out of 7 days Therapist that Will Over[place] Plan of Care: [facility] Pain Evaluation and Follow-up Pain Reassessment: 10 (05/12/19942) Nursing notified of patient's pain assessment: Primary Nurse(Pt. received pain medication with morning meds at the end of the session.) (05/12/1944) Therapy Minutes Comm Evaluation (ST) Time In : 0900 Time Out: 0945 Breaks/Pauses (Min): 0 mins Time calculation (min): 45 min Missed Minutes : [address] 05/12/2019 * Plan of Care - Rosalind Snyder RN - 05/11/2019 9:38 PM CST Problem: Infection Goal: Absence of infection and [...] facility with appropriate resources Outcome: Progressing Goal: manager supply will develop a plan to 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 burden and 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 in role Outcome: Progressing documented in this encounter Plan of Treatment Pending Results Name Type Priority Associated Diagnoses Date /Time XR pelvis 3+ vws Imaging Routine 05/24/19 20 2:37 PM GLOVE TAGGER POCT glucose Point of Care Testing Routine 05/25/2019 9:58 PM GLOVE TAGGER POCT glucose Point of Care Testing Routine 05/26/2019 6:43 AM GLOVE TAGGER POCT glucose Point of Care Testing Routine 05/27/2019 12:06 AM GLOVE TAGGER POCT glucose Point of Care Testing Routine 05/27/2019 6:56 AM GLOVE TAGGER POCT glucose Point of Care Testing Routine 05/27/2019 9:56 PM GLOVE TAGGER POCT glucose Point of Care Testing Routine 05/28/2019 6:17 AM GLOVE TAGGER Scheduled Referrals Name Type Priority Associated Diagnoses Orde r Schedule Consult to Day [place] (Patient requires skilled day therapy program) Outpatient Referral Routine Debility Anemia of chronic renal failure Chronic kidney disease, Stage V Essential hypertension Hyperkalemia Hypervolemia Malignant neoplasm of prostate Moderate malnutrition Other hyperlipidemia Other retention of urine Diastolic dysfunction Seroma <Initial> Abnormality of gait, not otherwise specified Toxic metabolic encephalopathy End stage renal failure on dialysis Other abnormal glucose Metabolic acidosis Latent autoimmune diabetes mellitus in adult Ordered: 05/24/2019 DME Order - Walker; 2 Wheeled Walker - 5 inch wheels; 99 months Outpatient Referral Routine Debility Anemia of chronic renal failure Chronic kidney disease, Stage V Essential hypertension Hyperkalemia Hypervolemia Malignant neoplasm of prostate Moderate malnutrition Other hyperlipidemia Other retention of urine Diastolic dysfunction Seroma <Initial> Abnormality of gait, not otherwise specified Toxic metabolic encephalopathy End stage renal failure on dialysis Other abnormal glucose Metabolic acidosis Latent autoimmune diabetes mellitus in adult Ordered: 05/24/2019 documented as of this encounter Procedures Procedure Name Priority Date/Time Associated Diagnosis Comments POCT GLUCOSE Routine 05/27/2019 8:44 PM GLOVE TAGGER CBC WITH AUTO DIFFERENTIAL Routine 05/27/2019 7:13 PM GLOVE TAGGER BASIC METABOLIC PANEL Routine 05/27/2019 7:13 PM GLOVE TAGGER POCT GLUCOSE Routine 05/27/2019 5:00 PM GLOVE TAGGER POCT GLUCOSE Routine 05/26/2019 4:49 PM GLOVE TAGGER POCT GLUCOSE Routine 05/26/2019 11:46 AM GLOVE TAGGER POCT GLUCOSE Routine 05/25/2019 4:45 PM GLOVE TAGGER POCT GLUCOSE Routine 05/25/2019 6:50 AM GLOVE TAGGER POCT GLUCOSE Routine 05/24/2019 9:00 PM GLOVE TAGGER POCT GLUCOSE Routine 05/24/2019 5:18 PM GLOVE TAGGER XR HIP 2 VWS BILATERAL Routine 0 4:45 PM GLOVE TAGGER POCT GLUCOSE Routine 05/24/2019 12:21 PM GLOVE TAGGER POCT GLUCOSE Routine 05/24/2019 6:17 AM GLOVE TAGGER POCT GLUCOSE Routine 05/23/2019 9:00 PM GLOVE TAGGER POCT GLUCOSE Routine 05/23/2019 5:00 PM GLOVE TAGGER POCT GLUCOSE Routine 05/23/2019 11:00 AM GLOVE TAGGER POCT GLUCOSE Routine 05/23/2019 6:49 AM GLOVE TAGGER POCT GLUCOSE Routine 05/22/2019 9:00 PM GLOVE TAGGER POCT GLUCOSE Routine 05/22/2019 5:56 PM GLOVE TAGGER POCT GLUCOSE Routine 05/22/2019 11:00 AM GLOVE TAGGER CBC Routine 05/22/2019 7:08 AM GLOVE TAGGER BASIC METABOLIC PANEL Routine 05/22/2019 7:08 AM GLOVE TAGGER POCT GLUCOSE Routine 05/21/2019 9:00 PM GLOVE TAGGER POCT GLUCOSE Routine 05/21/2019 5:04 PM GLOVE TAGGER POCT GLUCOSE Routine 05/21/2019 11:34 AM GLOVE TAGGER POCT GLUCOSE Routine 05/21/2019 7:28 AM GLOVE TAGGER POCT GLUCOSE Routine 05/20/2019 9:08 PM GLOVE TAGGER POCT GLUCOSE Routine 05/20/2019 4:56 PM GLOVE TAGGER POCT GLUCOSE Routine 05/20/2019 11:00 AM GLOVE TAGGER BASIC METABOLIC PANEL Routine 05/20/2019 10:16 AM GLOVE TAGGER POCT GLUCOSE Routine 05/20/2019 6:58 AM GLOVE TAGGER POCT GLUCOSE Routine 05/19/2019 9:09 PM GLOVE TAGGER POCT GLUCOSE Routine 05/19/2019 6:08 PM GLOVE TAGGER POCT GLUCOSE Routine 05/19/2019 4:00 PM GLOVE TAGGER POCT GLUCOSE Routine 05/19/2019 6:43 AM GLOVE TAGGER POCT GLUCOSE Routine 05/18/2019 9:30 PM GLOVE TAGGER POCT GLUCOSE Routine 05/18/2019 4:49 PM GLOVE TAGGER POCT GLUCOSE Routine 05/18/2019 11:39 AM GLOVE TAGGER CBC Routine 05/18/2019 10:52 AM GLOVE TAGGER BASIC METABOLIC PANEL Routine 05/18/2019 10:52 AM GLOVE TAGGER POCT GLUCOSE Routine 05/18/2019 7:00 AM GLOVE TAGGER POCT GLUCOSE Routine 05/17/2019 9:19 PM GLOVE TAGGER POCT GLUCOSE Routine 05/17/2019 4:51 PM GLOVE TAGGER POCT GLUCOSE Routine 05/17/2019 11:48 AM GLOVE TAGGER POCT GLUCOSE Routine 05/17/2019 7:05 AM GLOVE TAGGER POCT GLUCOSE Routine 05/16/2019 9:00 PM GLOVE TAGGER POCT GLUCOSE Routine 05/16/2019 4:00 PM GLOVE TAGGER POCT GLUCOSE Routine 05/16/2019 4:00 PM GLOVE TAGGER POCT GLUCOSE Routine 05/16/2019 12:18 PM GLOVE TAGGER POCT GLUCOSE Routine 05/16/2019 6:31 AM GLOVE TAGGER POCT GLUCOSE Routine 05/15/2019 4:53 PM GLOVE TAGGER POCT GLUCOSE Routine 05/15/2019 12:01 PM GLOVE TAGGER METHYLMALONIC ACID, SERUM Routine 05/15/2019 6:59 AM GLOVE TAGGER CBC Routine 05/15/2019 6:59 AM GLOVE TAGGER VITAMIN B12 Routine 05/15/2019 6:59 AM GLOVE TAGGER BASIC METABOLIC PANEL Routine 05/15/2019 6:59 AM GLOVE TAGGER POCT GLUCOSE Routine 05/15/2019 6:34 AM GLOVE TAGGER POCT GLUCOSE Routine 05/14/2019 9:30 PM GLOVE TAGGER POCT GLUCOSE Routine 05/14/2019 4:33 PM GLOVE TAGGER POCT GLUCOSE Routine 05/14/2019 11:33 AM GLOVE TAGGER POCT GLUCOSE Routine 05/14/2019 6:36 AM GLOVE TAGGER POCT GLUCOSE Routine 05/13/2019 9:09 PM GLOVE TAGGER HEPATITIS B SURFACE ANTIGEN STAT 05/13/2019 3:40 PM GLOVE TAGGER CBC Routine 05/13/2019 5:00 AM GLOVE TAGGER HEPATIC FUNCTION PANEL Add-On 0 5:00 AM GLOVE TAGGER BASIC METABOLIC PANEL Routine 05/13/2019 5:00 AM GLOVE TAGGER CBC Routine 05/12/2019 5:30 AM GLOVE TAGGER BASIC METABOLIC PANEL Routine 05/12/2019 5:30 AM GLOVE TAGGER documented in this encounter Results * POCT glucose (05/27/2019 8:44 PM GLOVE TAGGER) Pathologist [facility] Glucose Blood, POC 97 70 - 120 mg/dL IN-HOUSE PROCEDURES Blood 05/27/2019 8:44 PM GLOVE TAGGER Manoj Morrison NP LAB POINT OF CARE TEST ORDERABLE S Final Result IN-HOUSE PROCEDURES * (ABNORMAL) CBC WITH AUTO DIFFERENTIAL (05/27/2019 7:13 PM GLOVE TAGGER) WBC X(10)9/L Blood 4.5 4.4 - 10.7 x10E9/L [facility] Corrected WBC X(10)9/L Blood [facility] Rbc X(10)12/L Blood 2.72(L) 3.80 - 5.40 x10E12/L [facility] HGB gm/dL Blood 8.5(L) 12.0 - 17.6 gm/dL [facility] HCT % Blood 28.2(L) 35.2 - 51.7 % [facility] MCV fL Blood 103.7(H) 80.7 - 98.3 fl [facility] MCH pg Blood 31.3 26.7 - 34.0 pg [facility] MCHC gm/dL Blood 30.1(L) 30.8 - 35.9 gm/dL [facility] Plt Ct X(10)9/L Blood 215 153 - 416 x10E9/L [facility] RDW-Cv % Blood 17.1(H) 12.1 - 14.9 % [facility] MPV fL Blood 9.1(L) 9.4 - 12.9 fl [facility] Neutrophil % Blood 45.5 44.0 - 73.0 % [facility] Lymph % Blood 30.8 20.0 - 43.0 % [facility] [place] % Blood 15.0(H) 5.0 - 13.0 % [facility] EOS % Blood 6.0 0.0 - 6.0 % [facility] Baso % Blood 0.7 0.0 - 2.0 % [facility] Immature Grans % Blood Auto 2.0(H) 0 - 1 % [facility] Neutrophil Abs Blood 2.04 2.01 - 7.14 x10E9/L [facility] Lymph Abs Blood 1.38 1.07 - 3.94 x10E9/L [facility] [place] Abs Blood 0.67 0.26 - 1.07 x10E9/L [facility] EOS Abs Blood 0.27 0 - 0.47 x10E9/L [facility] Baso Abs Blood 0.03 0 - 0.08 x10E9/L [facility] Immature Grans Abs Blood Auto 0.09(H) 0.00 - 0.06 x10E9/L [facility] NRBC /100 WBC Blood Auto 0 /100 WBC [facility] Blood 05/27/2019 7:13 PM GLOVE TAGGER 05/27/2019 10:18 PM GLOVE TAGGER Narrative [facility] - 05/27/2019 10:24 PM GLOVE TAGGER With dialysis us Manoj Morrison NP LAB BLOOD ORDERABLES Final Resul t [facility] [id number] [place] [address] * (ABNORMAL) Basic metabolic panel (05/27/2019 7:13 PM GLOVE TAGGER) Glucose mg/dL Blood 96 70 - 105 mg/dL [facility] Sodium mmol/L Blood 138 136 - 145 mmol/L [facility] Potassium mmol/L Blood 4.6 3.5 - 5.1 mmol/L [facility] Chloride 97(L) 98 - 107 mmol/L [facility] CO2 27 23 - 31 mmol/L [facility] Calcium mg/dL Blood 8.0(L) 8.4 - 10.4 mg/dL [facility] Anion Gap Blood 14 8 - 16 mmol/L [facility] Bun mg/dL Blood 40(H) 8.4 - 25.7 mg/dL [facility] Creatinine 6.68(H) 0.72 - 1.25 mg/dL [facility] Egfr By MDRD ml/Min/1.73 M2 Blood 8 mL/min/1.7 3m2 [facility] Egfr By MDRD ml/Min/1.73 M2 Blood Afr.Amer 10 mL/min/1.7 3m2 [facility] Blood 05/27/2019 7:13 PM GLOVE TAGGER 05/27/2019 10:18 PM GLOVE TAGGER Narrative [facility] - 05/27/2019 10:41 PM GLOVE TAGGER Done with dialysis please Florencia Moulton MD LAB BLOOD ORDERABLES Final Resu lt Performing Organization Address City/[facility]/ZIP Co de Phone Number [facility] [id number] [place] [address] * POCT glucose (05/27/2019 5:00 PM GLOVE TAGGER) Glucose Blood, POC 116 70 - 120 mg/dL IN-HOUSE PROCEDURES Blood 05/27/2019 5:00 PM GLOVE TAGGER Manoj Morrison NP LAB POINT OF CARE TEST ORDERABLE S Final Result IN-HOUSE PROCEDURES * POCT glucose (05/26/2019 4:49 PM GLOVE TAGGER) Glucose Blood, POC 107 70 - 120 mg/dL IN-HOUSE PROCEDURES Blood 05/26/2019 4:49 PM GLOVE TAGGER us Manoj Morrison CORK COMPOUNDER LAB POINT OF CARE TEST ORDERABLE S Final Result Performing Organization Address [facility] de Phone Number IN-HOUSE PROCEDURES * POCT glucose (05/26/2019 11:46 AM GLOVE TAGGER) Glucose Blood, POC 89 70 - 120 mg/dL [facility] IN-HOUSE PROCEDURES Blood 05/26/2019 11:4 6 AM GLOVE TAGGER us Manoj Morrison CORK COMPOUNDER LAB POINT OF CARE TEST ORDERABLE S Final Result Performing Organization Address [facility] de Phone Number IN-HOUSE PROCEDURES * POCT glucose (05/25/2019 4:45 PM GLOVE TAGGER) Glucose Blood, POC 102 70 - 120 mg/dL IN-HOUSE PROCEDURES Blood 05/25/2019 4:45 PM GLOVE TAGGER us Manoj Morrison CORK COMPOUNDER LAB POINT OF CARE TEST ORDERABLE S Final Result Performing Organization Address [facility] de Phone Number IN-HOUSE PROCEDURES * POCT glucose (05/25/2019 6:50 AM GLOVE TAGGER) Glucose Blood, POC 94 70 - 120 mg/dL IN-HOUSE PROCEDURES Blood 05/25/2019 6:50 AM GLOVE TAGGER us Manoj Morrison CORK COMPOUNDER LAB POINT OF CARE TEST ORDERABLE S Final Result Performing Organization Address City/[facility] Co de Phone Number IN-HOUSE PROCEDURES * (ABNORMAL) POCT glucose (05/24/2019 9:00 PM GLOVE TAGGER) Glucose Blood, POC 163(A) 70 - 120 mg/dL SM IN-HOUSE PROCEDURES Blood 05/24/2019 9:00 PM GLOVE TAGGER us Manoj Morrison CORK COMPOUNDER LAB POINT OF CARE TEST ORDERABLE S Final Result SM IN-HOUSE PROCEDURES * (ABNORMAL) POCT glucose (05/24/2019 5:18 PM GLOVE TAGGER) Glucose Blood, POC 163(A) 70 - 120 mg/dL SM IN-HOUSE PROCEDURES Blood 05/24/2019 5:18 PM GLOVE TAGGER us Manoj Morrison NP LAB POINT OF CARE TEST ORDERABLE S Final Result SM IN-HOUSE PROCEDURES * XR hip bilateral 2 vws (05/24/2019 4:45 PM GLOVE TAGGER) Anatomical Region Laterality Modality Computed Radiogr aphy Narrative 05/24/2019 5:22 PM GLOVE TAGGER NARRATIVE: 2 views right hip 2 views left hip AP pelvis INDICATION: Bilateral hip pain and pelvic pain. FINDINGS: Right hip: No acute fracture, malalignment, or degenerative disease. Left hip: Marked severe osteoarthrosis left hip joint with evko-be-iyiv contact throughout the central, superior, superolateral portions of the articulation. Subchondral sclerosis and cystic change femoral head and acetabulum. No acute fracture. AP pelvis: Anatomic alignment. No other sites of degenerative disease. No acute pathology. Reading Radiologist: Milana Rodríguez MD on 05/24/2019 at 5:22 PM Procedure Note System, Provider Not In - 05/26/2019 NARRATIVE: 2 views right hip 2 views left hip AP pelvis INDICATION: Bilateral hip pain and pelvic pain. FINDINGS: Right hip: No acute fracture, malalignment, or degenerative disease. Left hip: Marked severe osteoarthrosis left hip joint with vgpn-wi-tbeh contact throughout the central, superior, superolateral portions of the articulation. Subchondral sclerosis and cystic change femoral head and acetabulum. No acute fracture. AP pelvis: Anatomic alignment. No other sites of degenerative disease. No acute pathology. Reading Radiologist: Milana Rodríguez MD on 05/24/2019 at 5:22 PM us Manoj Morrison NP IMG DIAGNOSTIC IMAGING ORDERABLE S Final Result * POCT glucose (05/24/2019 12:21 PM GLOVE TAGGER) Glucose Blood, POC 106 70 - 120 mg/dL SM IN-HOUSE PROCEDURES Blood 05/24/2019 12:2 1 PM GLOVE TAGGER us Manoj Morrison NP LAB POINT OF CARE TEST ORDERABLE S Final Result SM IN-HOUSE PROCEDURES * (ABNORMAL) POCT glucose (05/24/2019 6:17 AM GLOVE TAGGER) Glucose Blood, POC 106 70 - 120 mg/dL SM IN-HOUSE PROCEDURES Blood 05/24/2019 6:17 AM GLOVE TAGGER us Manoj Morrison NP LAB POINT OF CARE TEST ORDERABLE S Final Result Performing Organization Address [facility]/ZIP Co de Phone Number SM IN-HOUSE PROCEDURES * (ABNORMAL) POCT glucose (05/23/2019 9:00 PM GLOVE TAGGER) Glucose Blood, POC 138(A) 70 - 120 mg/dL SM IN-HOUSE PROCEDURES Blood 05/23/2019 9:00 PM GLOVE TAGGER us Manoj Morrison NP LAB POINT OF CARE TEST ORDERABLE S Final Result Performing Organization Address [facility]/ZIP Co de Phone Number SM IN-HOUSE PROCEDURES * POCT glucose (05/23/2019 5:00 PM GLOVE TAGGER) Glucose Blood, POC 113 70 - 120 mg/dL SM IN-HOUSE PROCEDURES Blood 05/23/2019 5:00 PM GLOVE TAGGER us Manoj Morrison NP LAB POINT OF CARE TEST ORDERABLE S Final Result SM IN-HOUSE PROCEDURES * POCT glucose (05/23/2019 11:00 AM GLOVE TAGGER) Glucose Blood, POC 95 70 - 120 mg/dL SM IN-HOUSE PROCEDURES Blood 05/23/2019 11:0 0 AM GLOVE TAGGER us Manoj Morrison CORK COMPOUNDER LAB POINT OF CARE TEST ORDERABLE S Final Result Performing Organization Address [facility] Phone Number IN-HOUSE PROCEDURES * POCT glucose (05/23/2019 6:49 AM GLOVE TAGGER) Glucose Blood, POC 102 70 - 120 mg/dL IN-HOUSE PROCEDURES Blood 05/23/2019 6:49 AM GLOVE TAGGER us Manoj Morrison CORK COMPOUNDER LAB POINT OF CARE TEST ORDERABLE S Final Result Performing Organization Address [facility] Phone Number IN-HOUSE PROCEDURES * (ABNORMAL) POCT glucose (05/22/2019 9:00 PM GLOVE TAGGER) Glucose Blood, POC 158(A) 70 - 120 mg/dL IN-HOUSE PROCEDURES Blood 05/22/2019 9:00 PM GLOVE TAGGER us Manoj Morrison CORK COMPOUNDER LAB POINT OF CARE TEST ORDERABLE S Final Result Performing Organization Address [facility] de Phone Number IN-HOUSE PROCEDURES * (ABNORMAL) POCT glucose (05/22/2019 5:56 PM GLOVE TAGGER) Glucose Blood, POC 125(A) 70 - 120 mg/dL IN-HOUSE PROCEDURES Blood 05/22/2019 5:56 PM GLOVE TAGGER us Manoj Morrison CORK COMPOUNDER LAB POINT OF CARE TEST ORDERABLE S Final Result Performing Organization Address City/[facility] Co de Phone Number IN-HOUSE PROCEDURES * POCT glucose (05/22/2019 11:00 AM GLOVE TAGGER) Glucose Blood, POC 101 70 - 120 mg/dL IN-HOUSE PROCEDURES Blood 05/22/2019 11:0 0 AM GLOVE TAGGER us Manoj Morrison CORK COMPOUNDER LAB POINT OF CARE TEST ORDERABLE S Final Result Performing Organization Address City/[facility]/ZIP Co de Phone Number IN-HOUSE PROCEDURES * (ABNORMAL) CBC (05/22/2019 7:08 AM GLOVE TAGGER) WBC X(10)9/L Blood 2.4(L) 4.4 - 10.7 x10E9/L [facility] Rbc X(10)12/L Blood 3.03(L) 3.80 - 5.40 x10E12/L [facility] LABORATORY HGB gm/dL Blood 9.2(L) 12.0 - 17.6 gm/dL [facility] HCT % Blood 29.9(L) 35.2 - 51.7 % [facility] MCV fL Blood 98.7(H) 80.7 - 98.3 fl [facility] MCH pg Blood 30.4 26.7 - 34.0 pg [facility] MCHC gm/dL Blood 30.8 30.8 - 35.9 gm/dL [facility] Plt Ct X(10)9/L Blood 209 153 - 416 x10E9/L [facility] RDW-Cv % Blood 15.0(H) 12.1 - 14.9 % [facility] MPV fL Blood 9.8 9.4 - 12.9 [facility] Blood 05/22/2019 7:08 AM GLOVE TAGGER 05/22/2019 8:01 PM GLOVE TAGGER Manoj Morrison NP LAB BLOOD ORDERABLES Final Resul t Performing Organization Address City/[facility]/ZIP Co de Phone Number [facility] [address] [place] [address] * (ABNORMAL) Basic metabolic panel (05/22/2019 7:08 AM GLOVE TAGGER) Glucose mg/dL Blood 146(H) 70 - 105 mg/dL [facility] Sodium mmol/L Blood 135(L) 136 - 145 mmol/L [facility] Potassium mmol/L Blood 3.8 3.5 - 5.1 mmol/L [facility] Chloride 96(L) 98 - 107 mmol/L [facility] CO2 26 23 - 31 mmol/L [facility] Calcium mg/dL Blood 8.4 8.4 - 10.4 mg/dL [facility] Anion Gap Blood 13 8 - 16 mmol/L [facility] Bun mg/dL Blood 42(H) 8.4 - 25.7 mg/dL [facility] Creatinine 6.41(H) 0.72 - 1.25 mg/dL [facility] Egfr By MDRD ml/Min/1.73 M2 Blood 9 mL/min/1.7 3m2 [facility] Egfr By MDRD ml/Min/1.73 M2 Blood Afr.Amer 10 mL/min/1.7 3m2 [facility] Blood 05/22/2019 7:08 AM GLOVE TAGGER 05/22/2019 8:01 PM GLOVE TAGGER Narrative [facility] - 05/22/2019 8:37 PM GLOVE TAGGER Done with dialysis please Carmen Donato MD LAB BLOOD ORDERABLES Final Resul t Performing Organization Address City/[facility]/ZIP Co de Phone Number [facility] [address] [place] [address] * (ABNORMAL) POCT glucose (05/21/2019 9:00 PM GLOVE TAGGER) Glucose Blood, POC 184(A) 70 - 120 mg/dL IN-HOUSE PROCEDURES Blood 05/21/2019 9:00 PM GLOVE TAGGER Manoj Morrison NP LAB POINT OF CARE TEST ORDERABLE S Final Result Performing Organization Address City/[facility]/ZIP Co de Phone Number IN-HOUSE PROCEDURES * POCT glucose (05/21/2019 5:04 PM GLOVE TAGGER) Glucose Blood, POC 112 70 - 120 mg/dL IN-HOUSE PROCEDURES Blood 05/21/2019 5:04 PM GLOVE TAGGER us Manoj Morrison NP LAB POINT OF CARE TEST ORDERABLE S Final Result IN-HOUSE PROCEDURES * POCT glucose (05/21/2019 11:34 AM GLOVE TAGGER) Glucose Blood, POC 89 70 - 120 mg/dL [facility] IN-HOUSE PROCEDURES Blood 05/21/2019 11:3 4 AM GLOVE TAGGER us Manoj Morrison NP LAB POINT OF CARE TEST ORDERABLE S Edited Result - Final Performing Organization Address [facility] Co de Phone Number SM IN-HOUSE PROCEDURES * (ABNORMAL) POCT glucose (05/21/2019 7:28 AM GLOVE TAGGER) Glucose Blood, POC 109 70 - 120 mg/dL [facility] IN-HOUSE PROCEDURES Blood 05/21/2019 7:28 AM GLOVE TAGGER us Manoj Morrison NP LAB POINT OF CARE TEST ORDERABLE S Final Result Performing Organization Address [facility] de Phone Number IN-HOUSE PROCEDURES * (ABNORMAL) POCT glucose (05/20/2019 9:08 PM GLOVE TAGGER) Glucose Blood, POC 122(A) 70 - 120 mg/dL [facility] IN-HOUSE PROCEDURES Blood 05/20/2019 9:08 PM GLOVE TAGGER us Manoj Morrison NP LAB POINT OF CARE TEST ORDERABLE S Final Result Performing Organization Address [facility] de Phone Number IN-HOUSE PROCEDURES * (ABNORMAL) POCT glucose (05/20/2019 4:56 PM GLOVE TAGGER) Glucose Blood, POC 133(A) 70 - 120 mg/dL [facility] IN-HOUSE PROCEDURES Blood 05/20/2019 4:56 PM GLOVE TAGGER us Manoj Morrison NP LAB POINT OF CARE TEST ORDERABLE S Final Result Performing Organization Address [facility] Co de Phone Number SM IN-HOUSE PROCEDURES * POCT glucose (05/20/2019 11:00 AM GLOVE TAGGER) Glucose Blood, POC 109 70 - 120 mg/dL [facility] IN-HOUSE PROCEDURES Blood 05/20/2019 11:0 0 AM GLOVE TAGGER us Manoj Morrison NP LAB POINT OF CARE TEST ORDERABLE S Final Result IN-HOUSE PROCEDURES * (ABNORMAL) Basic metabolic panel (05/20/2019 10:16 AM GLOVE TAGGER) Glucose mg/dL Blood 105 70 - 105 mg/dL [facility] Sodium mmol/L Blood 137 136 - 145 mmol/L [facility] Potassium mmol/L Blood 5.6(H) 3.5 - 5.1 mmol/L [facility] Chloride 99 98 - 107 mmol/L [facility] CO2 23 23 - 31 mmol/L [facility] Calcium mg/dL Blood 8.6 8.4 - 10.4 mg/dL [facility] Anion Gap Blood 15 8 - 16 mmol/L [facility] Bun mg/dL Blood 55(H) 8.4 - 25.7 mg/dL [facility] Creatinine 7.67(H) 0.72 - 1.25 mg/dL [facility] Egfr By MDRD ml/Min/1.73 M2 Blood 7 mL/min/1.7 3m2 [facility] Egfr By MDRD ml/Min/1.73 M2 Blood Afr.Amer 8 mL/min/1.7 3m2 [facility] Blood 05/20/2019 10:1 6 AM GLOVE TAGGER 05/20/2019 6:21 PM GLOVE TAGGER Narrative [facility] - 05/20/2019 6:45 PM GLOVE TAGGER Done with dialysis please us Carmen Donato MD LAB BLOOD ORDERABLES Final Resul t [facility] [address] [place] [address] * (ABNORMAL) POCT glucose (05/20/2019 6:58 AM GLOVE TAGGER) Glucose Blood, POC 124(A) 70 - 120 mg/dL IN-HOUSE PROCEDURES Blood 05/20/2019 6:58 AM GLOVE TAGGER us Manoj Morrison [employer] LAB POINT OF CARE TEST ORDERABLE S Final Result SM IN-HOUSE PROCEDURES * (ABNORMAL) POCT glucose (05/19/2019 9:09 PM GLOVE TAGGER) Glucose Blood, POC 161(A) 70 - 120 mg/dL [facility] IN-HOUSE PROCEDURES Blood 05/19/2019 9:09 PM GLOVE TAGGER us Manoj Morrison [employer] LAB POINT OF CARE TEST ORDERABLE S Final Result IN-HOUSE PROCEDURES * POCT glucose (05/19/2019 6:08 PM GLOVE TAGGER) Glucose Blood, POC 108 70 - 120 mg/dL SM IN-HOUSE PROCEDURES Blood 05/19/2019 6:08 PM GLOVE TAGGER us Manoj Morrison [employer] LAB POINT OF CARE TEST ORDERABLE S Final Result IN-HOUSE PROCEDURES * POCT glucose (05/19/2019 4:00 PM GLOVE TAGGER) Glucose Blood, POC 83 70 - 120 mg/dL IN-HOUSE PROCEDURES Blood 05/19/2019 4:00 PM GLOVE TAGGER us Manoj Morrison [employer] LAB POINT OF CARE TEST ORDERABLE S Final Result IN-HOUSE PROCEDURES * POCT glucose (05/19/2019 6:43 AM GLOVE TAGGER) Glucose Blood, POC 115 70 - 120 mg/dL SM IN-HOUSE PROCEDURES Blood 05/19/2019 6:43 AM GLOVE TAGGER us Manoj Morrison [employer] LAB POINT OF CARE TEST ORDERABLE S Final Result SM IN-HOUSE PROCEDURES * POCT glucose (05/18/2019 9:30 PM GLOVE TAGGER) Glucose Blood, POC 96 70 - 120 mg/dL IN-HOUSE PROCEDURES Blood 05/18/2019 9:30 PM GLOVE TAGGER Manoj Morrison NP LAB POINT OF CARE TEST ORDERABLE S Final Result Performing Organization Address [facility] de Phone Number IN-HOUSE PROCEDURES * (ABNORMAL) POCT glucose (05/18/2019 4:49 PM GLOVE TAGGER) Glucose Blood, POC 122(A) 70 - 120 mg/dL IN-HOUSE PROCEDURES Blood 05/18/2019 4:49 PM GLOVE TAGGER Manoj Morrison NP LAB POINT OF CARE TEST ORDERABLE S Final Result Performing Organization Address [facility] de Phone Number IN-HOUSE PROCEDURES * (ABNORMAL) POCT glucose (05/18/2019 11:39 AM GLOVE TAGGER) Glucose Blood, POC 138(A) 70 - 120 mg/dL IN-HOUSE PROCEDURES Blood 05/18/2019 11:3 9 AM GLOVE TAGGER Manoj Morrison NP LAB POINT OF CARE TEST ORDERABLE S Final Result Performing Organization Address [facility] de Phone Number IN-HOUSE PROCEDURES * (ABNORMAL) CBC (05/18/2019 10:52 AM GLOVE TAGGER) WBC X(10)9/L Blood 4.1(L) 4.4 - 10.7 x10E9/L [facility] Rbc X(10)12/L Blood 2.72(L) 3.80 - 5.40 x10E12/L [facility] HGB gm/dL Blood 8.1(L) 12.0 - 17.6 gm/dL [facility] HCT % Blood 26.4(L) 35.2 - 51.7 % [facility] MCV fL Blood 97.1 80.7 - 98.3 fl [facility] MCH pg Blood 29.8 26.7 - 34.0 pg [facility] MCHC gm/dL Blood 30.7(L) 30.8 - 35.9 gm/dL [facility] Plt Ct X(10)9/L Blood 275 153 - 416 x10E9/L [facility] RDW-Cv % Blood 13.9 12.1 - 14.9 % [facility] MPV fL Blood 9.8 9.4 - 12.9 fl [facility] Blood 05/18/2019 10:5 2 AM GLOVE TAGGER 05/18/2019 5:49 PM GLOVE TAGGER Manoj Morrison NP LAB BLOOD ORDERABLES Final Resul t [facility] [address] [place] [address] * (ABNORMAL) Basic metabolic panel (05/18/2019 10:52 AM GLOVE TAGGER) Glucose mg/dL Blood 128(H) 70 - 105 mg/dL [facility] Sodium mmol/L Blood 134(L) 136 - 145 mmol/L [facility] Potassium mmol/L Blood 4.6 3.5 - 5.1 mmol/L [facility] Chloride 95(L) 98 - 107 mmol/L [facility] CO2 25 23 - 31 mmol/L [facility] Calcium mg/dL Blood 8.2(L) 8.4 - 10.4 mg/dL [facility] Anion Gap Blood 14 8 - 16 mmol/L [facility] Bun mg/dL Blood 67(H) 8.4 - 25.7 mg/dL [facility] Creatinine 7.31(H) 0.72 - 1.25 mg/dL [facility] Egfr By MDRD ml/Min/1.73 M2 Blood 7 mL/min/1.7 3m2 [facility] Egfr By MDRD ml/Min/1.73 M2 Blood Afr.Amer 9 mL/min/1.7 3m2 [facility] Blood 05/18/2019 10:5 2 AM GLOVE TAGGER 05/18/2019 5:49 PM GLOVE TAGGER Narrative [facility] - 05/18/2019 6:08 PM GLOVE TAGGER Done with dialysis please us Carmen Donato MD LAB BLOOD ORDERABLES Final Resul t [facility] [address] [place] [address] * POCT glucose (05/18/2019 7:00 AM GLOVE TAGGER) Glucose Blood, POC 113 70 - 120 mg/dL IN-HOUSE PROCEDURES Blood 05/18/2019 7:00 AM GLOVE TAGGER us Manoj Morrison NP LAB POINT OF CARE TEST ORDERABLE S Final Result Performing Organization Address [facility]/ZIP Co de Phone Number IN-HOUSE PROCEDURES * (ABNORMAL) POCT glucose (05/17/2019 9:19 PM GLOVE TAGGER) Glucose Blood, POC 155(A) 70 - 120 mg/dL SM IN-HOUSE PROCEDURES Blood 05/17/2019 9:19 PM GLOVE TAGGER us Manoj Morrison NP LAB POINT OF CARE TEST ORDERABLE S Final Result Performing Organization Address [facility]/ZIP Co de Phone Number IN-HOUSE PROCEDURES * POCT glucose (05/17/2019 4:51 PM GLOVE TAGGER) Glucose Blood, POC 112 70 - 120 mg/dL SM IN-HOUSE PROCEDURES Blood 05/17/2019 4:51 PM GLOVE TAGGER us Manoj Morrison NP LAB POINT OF CARE TEST ORDERABLE S Final Result IN-HOUSE PROCEDURES * POCT glucose (05/17/2019 11:48 AM GLOVE TAGGER) Glucose Blood, POC 119 70 - 120 mg/dL SM IN-HOUSE PROCEDURES Blood 05/17/2019 11:4 8 AM GLOVE TAGGER us Manoj Morrison NP LAB POINT OF CARE TEST ORDERABLE S Final Result Performing Organization Address [facility] Co de Phone Number SM IN-HOUSE PROCEDURES * (ABNORMAL) POCT glucose (05/17/2019 7:05 AM GLOVE TAGGER) Glucose Blood, POC 124(A) 70 - 120 mg/dL SM IN-HOUSE PROCEDURES Blood 05/17/2019 7:05 AM GLOVE TAGGER us Manoj Morrison [employer] LAB POINT OF CARE TEST ORDERABLE S Final Result Performing Organization Address [facility] de Phone Number SM IN-HOUSE PROCEDURES * (ABNORMAL) POCT glucose (05/16/2019 9:00 PM GLOVE TAGGER) Glucose Blood, POC 173(A) 70 - 120 mg/dL [facility] IN-HOUSE PROCEDURES Blood 05/16/2019 9:00 PM GLOVE TAGGER us Manoj Morrison [employer] LAB POINT OF CARE TEST ORDERABLE S Final Result Performing Organization Address [facility] de Phone Number SM IN-HOUSE PROCEDURES * (ABNORMAL) POCT glucose (05/16/2019 4:00 PM GLOVE TAGGER) Glucose Blood, POC 206(A) 70 - 120 mg/dL [facility] IN-HOUSE PROCEDURES Blood 05/16/2019 4:00 PM GLOVE TAGGER us Manoj Morrison [employer] LAB POINT OF CARE TEST ORDERABLE S Final Result Performing Organization Address [facility] Co de Phone Number SM IN-HOUSE PROCEDURES * (ABNORMAL) POCT glucose (05/16/2019 4:00 PM GLOVE TAGGER) Glucose Blood, POC 210(A) 70 - 120 mg/dL SM IN-HOUSE PROCEDURES Blood 05/16/2019 4:00 PM GLOVE TAGGER us Manoj Morrison [employer] LAB POINT OF CARE TEST ORDERABLE S Final Result Performing Organization Address [facility] Co de Phone Number SM IN-HOUSE PROCEDURES * (ABNORMAL) POCT glucose (05/16/2019 12:18 PM GLOVE TAGGER) Glucose Blood, POC 138(A) 70 - 120 mg/dL IN-HOUSE PROCEDURES Blood 05/16/2019 12:1 8 PM GLOVE TAGGER us Manoj Morrison NP LAB POINT OF CARE TEST ORDERABLE S Final Result Performing Organization Address [facility] de Phone Number IN-HOUSE PROCEDURES * POCT glucose (05/16/2019 6:31 AM GLOVE TAGGER) Glucose Blood, POC 115 70 - 120 mg/dL IN-HOUSE PROCEDURES Blood 05/16/2019 6:31 AM GLOVE TAGGER us Manoj Morrison NP LAB POINT OF CARE TEST ORDERABLE S Final Result Performing Organization Address [facility] de Phone Number IN-HOUSE PROCEDURES * (ABNORMAL) POCT glucose (05/15/2019 4:53 PM GLOVE TAGGER) Glucose Blood, POC 165(A) 70 - 120 mg/dL IN-HOUSE PROCEDURES Blood 05/15/2019 4:53 PM GLOVE TAGGER us Manoj Morrison NP LAB POINT OF CARE TEST ORDERABLE S Final Result Performing Organization Address [facility] de Phone Number IN-HOUSE PROCEDURES * (ABNORMAL) POCT glucose (05/15/2019 12:01 PM GLOVE TAGGER) Glucose Blood, POC 290(A) 70 - 120 mg/dL IN-HOUSE PROCEDURES Blood 05/15/2019 12:0 1 PM GLOVE TAGGER us Manoj Morrison NP LAB POINT OF CARE TEST ORDERABLE S Final Result Performing Organization Address [facility] Co de Phone Number IN-HOUSE PROCEDURES * (ABNORMAL) CBC (05/15/2019 6:59 AM GLOVE TAGGER) WBC X(10)9/L Blood 5.7 4.4 - 10.7 x10E9/L [facility] Rbc X(10)12/L Blood 2.65(L) 3.80 - 5.40 x10E12/L [facility] HGB gm/dL Blood 7.9(L) 12.0 - 17.6 gm/dL [facility] HCT % Blood 26.1(L) 35.2 - 51.7 % [facility] MCV fL Blood 98.5(H) 80.7 - 98.3 fl [facility] MCH pg Blood 29.8 26.7 - 34.0 pg [facility] MCHC gm/dL Blood 30.3(L) 30.8 - 35.9 gm/dL [facility] Plt Ct X(10)9/L Blood 218 153 - 416 x10E9/L [facility] RDW-Cv % Blood 13.5 12.1 - 14.9 % [facility] MPV fL Blood 9.7 9.4 - 12.9 fl [facility] Blood 05/15/2019 6:59 AM GLOVE TAGGER 05/15/2019 10:58 AM GLOVE TAGGER us Manoj Morrison NP LAB BLOOD ORDERABLES Final Resul t [facility] [address] [place] [address] * (ABNORMAL) Basic metabolic panel (05/15/2019 6:59 AM GLOVE TAGGER) Glucose mg/dL Blood 131(H) 70 - 105 mg/dL [facility] Sodium mmol/L Blood 137 136 - 145 mmol/L [facility] Potassium mmol/L Blood 4.4 3.5 - 4.7 mmol/L [facility] Chloride 96(L) 98 - 107 mmol/L [facility] CO2 30 23 - 31 mmol/L [facility] Calcium mg/dL Blood 8.2(L) 8.4 - 10.4 mg/dL [facility] Anion Gap Blood 11 8 - 16 mmol/L [facility] Bun mg/dL Blood 45(H) 8.4 - 25.7 mg/dL [facility] Creatinine 6.77(H) 0.72 - 1.25 mg/dL [facility] Egfr By MDRD ml/Min/1.73 M2 Blood 8 mL/min/1.7 3m2 [facility] Egfr By MDRD ml/Min/1.73 M2 Blood Afr.Amer 10 mL/min/1.7 3m2 [facility] Blood 05/15/2019 6:59 AM GLOVE TAGGER 05/15/2019 10:58 AM GLOVE TAGGER Narrative [facility] - 05/15/2019 11:17 AM GLOVE TAGGER Done with dialysis please us Carmen Donato MD LAB BLOOD ORDERABLES Final Resul t Performing Organization Address [facility] Co de Phone Number [facility] [address] [place] [address] * (ABNORMAL) Methylmalonic acid, serum (05/15/2019 6:59 AM GLOVE TAGGER) Methylmalonic Acid, S 687(H) 0 - 378 nmol/L [facility] Organic Acid Scr, Ur Comment [facility] Comment: This test was developed and its performance characteristics determined by [facility]. It has not been cleared or approved by the Food and Drug Administration. Blood 05/15/2019 6:59 AM GLOVE TAGGER 05/17/2019 Narrative [facility] - 05/20/2019 12:09 PM GLOVE TAGGER Performed at: ??01 - [facility] ??[id number] Sap Developer: Loida Antonio MD, Phone: ??[phone] us Florencia Moulton MD LAB BLOOD ORDERABLES Final Resu lt [facility] * VITAMIN B12 (05/15/2019 6:59 AM GLOVE TAGGER) Vitamin B12 pg/mL Blood 349 213 - 816 pg/mL [facility] Blood 05/15/2019 6:59 AM GLOVE TAGGER 05/15/2019 10:58 AM GLOVE TAGGER us Florencia Moulton MD LAB BLOOD ORDERABLES Final Resu lt [facility] [address] [place] [address] * POCT glucose (05/15/2019 6:34 AM GLOVE TAGGER) Glucose Blood, POC 104 70 - 120 mg/dL [facility] IN-HOUSE PROCEDURES Blood 05/15/2019 6:34 AM GLOVE TAGGER Manoj Morrison NP LAB POINT OF CARE TEST ORDERABLE S Final Result Performing Organization Address City/[facility]/ZIP Co de Phone Number IN-HOUSE PROCEDURES * (ABNORMAL) POCT glucose (05/14/2019 9:30 PM GLOVE TAGGER) Glucose Blood, POC 137(A) 70 - 120 mg/dL [facility] IN-HOUSE PROCEDURES Blood 05/14/2019 9:30 PM GLOVE TAGGER Manoj Morrison NP LAB POINT OF CARE TEST ORDERABLE S Final Result Performing Organization Address [facility]/ZIP Co de Phone Number IN-HOUSE PROCEDURES * (ABNORMAL) POCT glucose (05/14/2019 4:33 PM GLOVE TAGGER) Glucose Blood, POC 171(A) 70 - 120 mg/dL [facility] IN-HOUSE PROCEDURES Blood 05/14/2019 4:33 PM GLOVE TAGGER Manoj Morrison NP LAB POINT OF CARE TEST ORDERABLE S Final Result SM IN-HOUSE PROCEDURES * (ABNORMAL) POCT glucose (05/14/2019 11:33 AM GLOVE TAGGER) Glucose Blood, POC 139(A) 70 - 120 mg/dL IN-HOUSE PROCEDURES Blood 05/14/2019 11:3 3 AM GLOVE TAGGER us Manoj Morrison NP LAB POINT OF CARE TEST ORDERABLE S Final Result Performing Organization Address [facility] de Phone Number SM IN-HOUSE PROCEDURES * (ABNORMAL) POCT glucose (05/14/2019 6:36 AM GLOVE TAGGER) Glucose Blood, POC 135(A) 70 - 120 mg/dL IN-HOUSE PROCEDURES Blood 05/14/2019 6:36 AM GLOVE TAGGER Manoj Morrison NP LAB POINT OF CARE TEST ORDERABLE S Final Result Performing Organization Address [facility] de Phone Number IN-HOUSE PROCEDURES * POCT glucose (05/13/2019 9:09 PM GLOVE TAGGER) Glucose Blood, POC 119 70 - 120 mg/dL IN-HOUSE PROCEDURES Blood 05/13/2019 9:09 PM GLOVE TAGGER Manoj Morrison NP LAB POINT OF CARE TEST ORDERABLE S Final Result Performing Organization Address [facility] de Phone Number SM IN-HOUSE PROCEDURES * HEPATITIS B SURFACE ANTIGEN (05/13/2019 3:40 PM GLOVE TAGGER) Hep B Surface Ag Blood Non Reactive Non Reactive [facility] Blood 05/13/2019 3:40 PM GLOVE TAGGER 05/13/2019 6:14 PM GLOVE TAGGER Carmen Donato MD LAB BLOOD ORDERABLES Final Resul t Performing Organization Address [facility] de Phone Number [facility] [address] [place] [phone] * Hepatic function panel (05/13/2019 5:00 AM GLOVE TAGGER) Alk Phos U/L Blood 59 40 - 150 U/L [facility] ALT/SGPT U/L Blood 32 0 - 61 U/L [facility] AST/SGOT U/L Blood 16 5 - 34 U/L [facility] Protein Total gm/dL Blood 6.4 6.4 - 8.3 gm/dL [facility] Albumin gm/dL Blood 3.4 3.2 - 4.6 gm/dL [facility] Bilirubin Total mg/dL Blood 0.3 0.2 - 1.2 mg/dL [facility] Bilirubin Conjugated Direct mg/dL Blood 0.1 <=0.5 mg/dL [facility] Blood 05/13/2019 5:00 AM GLOVE TAGGER 05/13/2019 5:32 PM GLOVE TAGGER us Florencia Moulton MD LAB BLOOD ORDERABLES Final Resu lt Performing Organization Address City/[facility] Co de Phone Number [facility] [address] [place] [address] * (ABNORMAL) Basic metabolic panel (05/13/2019 5:00 AM GLOVE TAGGER) Glucose mg/dL Blood 121(H) 70 - 105 mg/dL [facility] Sodium mmol/L Blood 137 136 - 145 mmol/L [facility] Potassium mmol/L Blood 3.6 3.5 - 4.7 mmol/L [facility] Chloride 96(L) 98 - 107 mmol/L [facility] CO2 26 23 - 31 mmol/L [facility] Calcium mg/dL Blood 8.3(L) 8.4 - 10.4 mg/dL [facility] Anion Gap Blood 15 8 - 16 mmol/L [facility] Bun mg/dL Blood 48(H) 8.4 - 25.7 mg/dL [facility] Comment:This result represen ts a significant difference from this patient's most recent previous value. Clinical correlation is therefore recommended. Creatinine 5.64(H) 0.72 - 1.25 mg/dL [facility] Egfr By MDRD ml/Min/1.73 M2 Blood 10 mL/min/1.7 3m2 [facility] Egfr By MDRD ml/Min/1.73 M2 Blood Afr.Amer 12 mL/min/1.7 3m2 [facility] Blood 05/13/2019 5:00 AM GLOVE TAGGER 05/13/2019 6:44 AM GLOVE TAGGER Narrative [facility] - 05/13/2019 7:21 AM GLOVE TAGGER Done with dialysis please us Carmen Donato MD LAB BLOOD ORDERABLES Final Resul t Performing Organization Address [facility] de Phone Number [facility] [address] [place] [address] * (ABNORMAL) CBC (05/13/2019 5:00 AM GLOVE TAGGER) WBC X(10)9/L Blood 5.9 4.4 - 10.7 x10E9/L [facility] Rbc X(10)12/L Blood 2.98(L) 3.80 - 5.40 x10E12/L [facility] HGB gm/dL Blood 8.8(L) 12.0 - 17.6 gm/dL [facility] HCT % Blood 29.1(L) 35.2 - 51.7 % [facility] MCV fL Blood 97.7 80.7 - 98.3 fl [facility] MCH pg Blood 29.5 26.7 - 34.0 pg [facility] MCHC gm/dL Blood 30.2(L) 30.8 - 35.9 gm/dL [facility] Plt Ct X(10)9/L Blood 267 153 - 416 x10E9/L [facility] RDW-Cv % Blood 13.6 12.1 - 14.9 % [facility] MPV fL Blood 9.6 9.4 - 12.9 fl [facility] Blood 05/13/2019 5:00 AM GLOVE TAGGER 05/13/2019 6:44 AM GLOVE TAGGER us Misty Hathaway MD LAB BLOOD ORDERABLES Final Res ult Performing Organization Address [facility] Co de Phone Number [facility] [address] [place] [address] * (ABNORMAL) CBC (05/12/2019 5:30 AM GLOVE TAGGER) WBC X(10)9/L Blood 6.6 4.4 - 10.7 x10E9/L [facility] Rbc X(10)12/L Blood 3.19(L) 3.80 - 5.40 x10E12/L [facility] HGB gm/dL Blood 9.4(L) 12.0 - 17.6 gm/dL [facility] HCT % Blood 31.2(L) 35.2 - 51.7 % [facility] MCV fL Blood 97.8 80.7 - 98.3 fl [facility] MCH pg Blood 29.5 26.7 - 34.0 pg [facility] MCHC gm/dL Blood 30.1(L) 30.8 - 35.9 gm/dL [facility] Plt Ct X(10)9/L Blood 273 153 - 416 x10E9/L [facility] RDW-Cv % Blood 13.6 12.1 - 14.9 % [facility] MPV fL Blood 9.9 9.4 - 12.9 fl [facility] Blood 05/12/2019 5:30 AM GLOVE TAGGER 05/12/2019 6:49 AM GLOVE TAGGER us Misty Hathaway MD LAB BLOOD ORDERABLES Final Res ult [facility] [address] [place] [address] * (ABNORMAL) Basic metabolic panel (05/12/2019 5:30 AM GLOVE TAGGER) Glucose mg/dL Blood 119(H) 70 - 105 mg/dL [facility] Sodium mmol/L Blood 139 136 - 145 mmol/L [facility] Potassium mmol/L Blood 3.9 3.5 - 4.7 mmol/L [facility] Chloride 95(L) 98 - 107 mmol/L [facility] CO2 29 23 - 31 mmol/L [facility] Calcium mg/dL Blood 8.9 8.4 - 10.4 mg/dL [facility] Anion Gap Blood 15 8 - 16 mmol/L [facility] Bun mg/dL Blood 29(H) 8.4 - 25.7 mg/dL [facility] Creatinine 4.03(H) 0.72 - 1.25 mg/dL [facility] Egfr By MDRD ml/Min/1.73 M2 Blood 15 mL/min/1.7 3m2 [facility] Egfr By MDRD ml/Min/1.73 M2 Blood Afr.Amer 18 mL/min/1.7 3m2 [facility] Blood 05/12/2019 5:30 AM [employer] 05/12/2019 6:48 AM [employer] us Misty Hathaway MD LAB BLOOD ORDERABLES Final Res ult [facility] [id number] [place] [address] documented in this encounter Visit Diagnoses Diagnosis Toxic metabolic encephalopathy- Primary Debility Anemia of chronic renal failure Chronic kidney disease, Stage V Essential hypertension Hyperkalemia Hypervolemia Malignant neoplasm of prostate Moderate malnutrition Other hyperlipidemia Other retention of urine Diastolic dysfunction Seroma <Initial> Abnormality of gait, not otherwise specified Toxic metabolic encephalopathy End stage renal failure on dialysis Other abnormal glucose Metabolic acidosis Latent autoimmune diabetes mellitus in adult Debility Retention of urine Anemia of chronic renal failure Chronic kidney disease, Stage V Essential hypertension Hyperkalemia Hypervolemia Malignant neoplasm of prostate Moderate malnutrition Other hyperlipidemia Diastolic dysfunction Seroma Abnormality of gait End stage renal failure on dialysis Hyperglycemia documented in this encounter Admitting Diagnoses Diagnosis Debility documented in this encounter Administered Medications Inactive Administered Medications - up to 3 most recent administrations Medication Order MAR Action Action Date Dose Rate Site acetaminophen (TYLENOL) tablet 325 mg 325 mg, PO/Per Tube, Every 6 hours PRN, Starting on Fri05/11/19 at 2124, Until Fri05/28/19 at 1407, mild pain, Temp > or equal to 101F (38.3C) Given 05/11/2019 11:21 PM GLOVE TAGGER 325 mg allopurinol (ZYLOPRIM) tablet 100 mg 100 mg, Oral, Daily, First dose on Fri05/12/19 at 0915, Until Discontinued Given 05/28/2019 8:01 AM GLOVE TAGGER 100 mg Given 05/27/2019 8:19 AM GLOVE TAGGER 100 mg Given 05/26/2019 8:06 AM GLOVE [employer]GER 100 mg amLODIPine (NORVASC) tablet 5 mg 5 mg, Oral, Daily, First dose on Fri05/12/19 at 0915, Until Discontinued Given 05/12/2019 9:42 AM GLOVE [facility]GER 5 mg atenolol (TENORMIN) tablet 12.5 mg 12.5 mg, Oral, Daily, First dose on Fri05/12/19 at 0915, Until Discontinued, Hold if hr less than 60 or if sbp less than 110 Given 05/13/2019 9:20 AM GLOVE TAGGER 12.5 mg Given 05/12/2019 9:43 AM GLOVE TAGGER 12.5 mg atorvastatin (LIPITOR) tablet 20 mg 20 mg, Oral, Daily, First dose on Fri05/12/19 at 0915, Until Discontinued Given 05/28/2019 8:01 AM GLOVE TAGGER 20 mg Given 05/27/2019 8:20 AM GLOVE TAGGER 20 mg Given 05/26/2019 8:06 AM GLOVE TAGGER 20 mg dextrose (GLUTOSE) 40 % oral gel 15 g 15 g, Oral, As needed, Starting on Fri05/13/19 at 1724, Until Fri05/28/19 at 1407, blood sugar < 70 mg/dL, If patient is alert and taking food/drink PO or per tube: a. Give patient ONE of the following: i. 4 ounces (1/2 cup) apple juice or non-diet carbonated beverage ii. 15 grams of glucose gel b. Repeat finger stick every 15 minutes and treat as above if blood glucose remains less than 70 mg/dl. c. blood glucose remains less than 70 mg/dl after two treatments or meal time is more than one hour away, give patient ONE of the following. i. 8 ounces (1 cup) of milk ii. One serving of fruit and protein (i.e. juice, cheese, etc.) iii. One serving of bread and protein (i.e. peanut butter and crackers) d. Call physician to notify with patient response prior to administering any further insulin or oral hypoglycemia agents. dextrose 5 % and sodium chloride 0.45 % infusion 50 mL/hr, Intravenous, As needed, Starting on Fri05/13/19 at 1724, Until Fri05/28/19 at 1407, For hypoglycemia, For renal patients D5W at 50mL/hr. dextrose 50 % IV solution 25 g 25 g, Intravenous, at 1,000 mL/hr, Administer over 3 Minutes, As needed, Starting on Fri05/13/19 at 1724, Until Fri05/28/19 at 1407, blood sugar < 70 mg/dL, If patient is not-alert or NPO and has IV access a. Give patient 50 ml of Dextrose 50% IV push over 3 minutes. b. Start IV D5-0.45% saline at 50 ml/hr. c. Call physician to notify with patient response prior to administering any further insulin or oral hypoglycemia agents. Diclofenac Sodium (VOLTAREN) 1 % gel 2 g 2 g, Topical, 2 times daily (2 times per day), First dose on Fri05/14/19 at 1215, Until Discontinued, L knee Given 05/28/2019 8:01 AM GLOVE TAGGER 2 g Given 05/27/2019 9:38 PM GLOVE TAGGER 2 g Given 05/27/2019 8:24 AM GLOVE TAGGER 2 g docusate sodium (COLACE) capsule 100 mg 100 mg, Oral, Daily, First dose on Fri05/13/19 at 0900, Until Discontinued, Swallow whole. Do not crush, open, chew, or split capsule. Given 05/28/2019 8:00 AM GLOVE TAGGER 100 mg Given 05/27/2019 8:20 AM GLOVE TAGGER 100 mg Given 05/26/2019 8:07 AM GLOVE TAGGER 100 mg donepezil (ARICEPT) tablet 10 mg 10 mg, Oral, Nightly, First dose on Fri05/12/19 at 2100, Until Discontinued Given 05/27/2019 9:37 PM GLOVE TAGGER 10 mg Given 05/26/2019 8:46 PM GLOVE TAGGER 10 mg Given 05/25/2019 9:25 PM GLOVE TAGGER 10 mg epoetin ashly-epbx (RETACRIT) 4,000 Units 4,000 Units, Subcutaneous, T-Th-Sat During Dialysis, First dose on Fri05/15/19 at 1100, Until Discontinued, Indication: \\[email or web address]\static\LinkProtocol s\XTU-Wlbbnqy-Tpdkqk-Polic y.pdf Given 05/27/2019 5:29 PM GLOVE TAGGER 4,000 Units Abdom inal Tissue Given 05/25/2019 5:58 PM GLOVE TAGGER 4,000 Units O ther Given 05/22/2019 12:12 PM GLOVE TAGGER 4,000 Units Abdominal Tissue folic acid (FOLVITE) tablet 1 mg 1 mg, Oral, Daily, First dose on Fri05/13/19 at 0900, Until Discontinued Given 05/28/2019 8:00 AM GLOVE TAGGER 1 mg Given 05/27/2019 8:20 AM GLOVE TAGGER 1 mg Given 05/26/2019 8:07 AM GLOVE TAGGER 1 mg furosemide (LASIX) tablet 80 mg 80 mg, Oral, 2 times daily diuretic, First dose on Fri05/12/19 at 0915, Until Discontinued Given 05/14/2019 5:14 PM GLOVE TAGGER 80 mg Given 05/14/2019 8:23 AM GLOVE TAGGER 80 mg Given 05/13/2019 4:54 PM GLOVE TAGGER 80 mg furosemide (LASIX) tablet 80 mg 80 mg, Oral, 2 times daily diuretic, First dose (after last modification) on Fri05/16/19 at 0730, Until Discontinued, Hold for systolic BP less than 100 Given 05/28/2019 7:57 AM GLOVE TAGGER 80 mg Given 05/27/2019 5:26 PM GLOVE TAGGER 80 mg Given 05/27/2019 8:20 AM GLOVE TAGGER 80 mg glucagon (human recombinant) injection 1 mg 1 mg, Intramuscular, As needed, Starting on Fri05/13/19 at 1724, Until Fri05/28/19 at 1407, blood sugar < 70 mg/dL, if no IV access, If patient is not-alert or NPO and has no IV access a. Give Glucagon 1 mg IM x 1 dose (give immediately do not wait for IV access). b. Place IV and start IV D5-0.45% saline at 50 ml/hr when IV can be started. c. Call physician to notify with patient response to treatment. heparin (porcine) injection 1,000 Units 1,000 Units, Intracatheter, 3 times per week in hemodialysis (MWF) (Once per day on Fri), First dose (after last modification) on Fri05/18/19 at 1600, Until Discontinued, Fill volume of venous catheter port Given 05/25/2019 7:36 PM GLOVE TAGGER 1,000 Units Given 05/22/2019 9:56 PM GLOVE TAGGER 1,000 Units Given by Other 05/20/2019 3:23 PM GLOVE TAGGER 1,000 Units heparin (porcine) injection 1,000 Units 1,000 Units, Intracatheter, 3 times per week in hemodialysis (MWF) (Once per day on Fri), First dose (after last modification) on Fri05/18/19 at 1600, Until Discontinued, Fill volume of arterial catheter port Given 05/25/2019 7:36 PM GLOVE TAGGER 1,000 Units Given 05/22/2019 9:56 PM GLOVE TAGGER 1,000 Units Given by Other 05/20/2019 3:21 PM GLOVE TAGGER 1,000 Units heparin (porcine) injection 2,000 Units 2,000 Units, Intravenous, During Dialysis, Starting on Fri05/18/19 at 1334, Until 1/31/20 at 1407, HIGH RISK MEDICATION Heparin 2000units bolus for dialysis Given 05/20/2019 11:30 AM GLOVE [employer]GER 2,000 Units heparin (porcine) injection 4,300 Units 4,300 Units, Intravenous, T- During Dialysis, First dose on Fri05/15/19 at 1100, Until Discontinued, To be given post dialysis, instill into lumens post dialysis Given 05/15/2019 10:51 AM GLOVE [employer]GER 4,300 Units heparin (porcine) injection 4,300 Units 4,300 Units, Intravenous, 3 times per week in hemodialysis (MWF) (Once per day on Fri), First dose on Fri05/18/19 at 1000, Until Discontinued, HIGH RISK MEDICATION 4300 units to be given post dialysis. Instill into lumens post dialysis., Per dialysis session, may administer up to (# of dose(s)): 1 Given 05/27/2019 11:32 PM GLOVE TAGGER 4,300 Units Given 05/25/2019 6:01 PM GLOVE TAGGER 4,300 Units Given 05/22/2019 9:57 PM GLOVE TAGGER 4,300 Units insulin lispro (HumaLOG) injection 0-6 Units 0-6 Units, Subcutaneous, 4 times daily before meals and nightly, First dose on Fri05/13/19 at 2200, Until Discontinued, Blood Sugar Very Low Dose <70 Initiate hypoglycemia treatment 70 - 200 No Insulin 201-250 2 units 251-300 3 units 301-350 4 units 351-400 5 units >400 6 units & Call Medical Provider Given - Witness Not Required 05/16/2019 5:46 PM GLOVE TAGGER 2 Units Abdominal Tissue Given - Witness Not Required 05/15/2019 12:05 PM GLOVE TAGGER 3 Uni ts Abdominal Tissue iron sucrose (VENOFER) injection 200 mg 200 mg, Intravenous, During Dialysis, Starting on Fri05/15/19 at 1040, Until Fri05/28/19 at 1407, If IV push, push slowly over 2 minutes. Given 05/27/2019 11:30 PM GLOVE TAGGER 200 mg Given 05/25/2019 6:04 PM GLOVE TAGGER 200 mg Given 05/20/2019 11:32 AM GLOVE TAGGER 200 mg lactulose (CHRONULAC) 10 GM/15ML solution 20 g 20 g, Oral, 2 times daily (2 times per day), 2 doses, First dose on Fri05/12/19 at 1345, Last dose on Fri05/12/19 at 2100 Given 05/12/2019 8:37 PM GLOVE TAGGER 20 g Given 05/12/2019 4:32 PM GLOVE TAGGER 20 g lactulose (CHRONULAC) 10 GM/15ML solution 20 g 20 g, Oral, 2 times daily (2 times per day), 2 doses, First dose on Fri05/13/19 at 0845, Last dose on Fri05/13/19 at 2100 Given 05/13/2019 9:19 AM GLOVE TAGGER 20 g lactulose (CHRONULAC) 10 GM/15ML solution 20 g 20 g, Oral, 2 times daily (2 times per day), 2 doses, First dose (after last modification) on Fri05/13/19 at 1345, Last dose on Fri05/13/19 at 2100 Given 05/13/2019 9:08 PM GLOVE TAGGER 20 g Given 05/13/2019 1:52 PM GLOVE TAGGER 20 g lactulose (CHRONULAC) 10 GM/15ML solution 20 g 20 g, Oral, 2 times daily (2 times per day), 2 doses, First dose on Fri05/26/19 at 1100, Last dose on Fri05/26/19 at 2100 Given 05/26/2019 8:47 PM GLOVE [employer]GER 20 g lidocaine (LIDOCARE) 4 % patch 2 patch 2 patch, Transdermal, Administer over 12 Hours, Daily, First dose on Fri05/14/19 at 1215, Until Discontinued, Apply to L leg. May cut patches if needed. Remove patch after 12 hours. Medication Applied 05/28/2019 8:01 AM GLOVE TAGGER 2 patches Other Medication Applied 05/27/2019 8:19 AM GLOVE TAGGER 2 patches Other Medication Applied 05/26/2019 8:07 AM GLOVE TAGGER 2 patches Back lisinopril (PRINIVIL,ZESTRIL) tablet 5 mg 5 mg, Oral, Daily, First dose on Fri05/12/19 at 0915, Until Discontinued, Hold if SBP less than 105 Given 05/12/2019 9:42 AM GLOVE TAGGER 5 mg MINERIN cream cream Topical, 2 times daily (2 times per day), First dose on Fri05/24/19 at 2100, Until Discontinued, Apply to bilateral feet Given 05/28/2019 8:02 AM GLOVE TAGGER Given 05/27/2019 9:38 PM GLOVE TAGGER Given 05/27/2019 8:24 AM GLOVE TAGGER oxybutynin (DITROPAN) tablet 5 mg 5 mg, Oral, Daily, First dose on Fri05/12/19 at 0915, Until Discontinued Given 05/13/2019 9:21 AM GLOVE TAGGER 5 mg Given 05/12/2019 9:42 AM GLOVE TAGGER 5 mg oxyCODONE-acetaminophen (PERCOCET) 5-325 MG 1 tablet 1 tablet, Oral, Every 6 hours PRN, Starting on Fri05/12/19 at 0905, Until Fri05/28/19 at 1407, moderate pain Given 05/25/2019 6:42 PM GLOVE TAGGER 1 tablet Given 05/22/2019 7:39 AM GLOVE TAGGER 1 tablet Given 05/20/2019 3:03 PM GLOVE TAGGER 1 tablet polyethylene glycol (MIRALAX) packet 17 g 17 g, Oral, Daily, First dose on Fri05/12/19 at 0900, Until Discontinued, Dilute/Mix with 4-8 oz fluid for administration. Given 05/18/2019 9:16 AM GLOVE TAGGER 17 g Given 05/15/2019 8:27 AM GLOVE TAGGER 17 g Given 05/14/2019 8:24 AM GLOVE TAGGER 17 g polyethylene glycol (MIRALAX) packet 17 g 17 g, Oral, Daily PRN, Starting on Fri05/18/19 at 1715, Until Fri05/28/19 at 1407, constipation, Dilute/Mix with 4-8 oz fluid for administration. Given 05/26/2019 6:01 AM GLOVE TAGGER 17 g Given 05/19/2019 8:52 AM GLOVE TAGGER 17 g rOPINIRole (REQUIP) tablet 0.5 mg 0.5 mg, Oral, T-Th-Sat During Dialysis, First dose on Fri05/27/19 at 1800, Until Discontinued, Give 15 minutes before dialysis. Given 05/27/2019 6:11 PM GLOVE TAGGER 0.5 mg tamsulosin (FLOMAX) 24 hr capsule 0.4 mg 0.4 mg, Oral, Nightly, First dose on Fri05/12/19 at 2100, Until Discontinued, Swallow whole. Do not crush, open, chew, or split capsule. Given 05/27/2019 9:37 PM GLOVE TAGGER 0.4 mg Given 05/26/2019 8:47 PM GLOVE TAGGER 0.4 mg Given 05/25/2019 9:25 PM GLOVE TAGGER 0.4 mg documented in this encounter Active and Recently Administered Medications Times are shown in GLOVE [employer]GER. Scheduled Medication Order 05/26/2019 05/27/2019 05/28/2019 allopurinol (ZYLOPRIM) tablet 100 mg 100 mg, Oral, Daily, First dose on Fri05/12/19 at 0915, Until Discontinued 805 (Given - Provider: Asya Lucio RN) 08 (Given - Provider: Estrella Ford RN) 800 (Given - Provider: Estrella Ford RN) atorvastatin (LIPITOR) tablet 20 mg 20 mg, Oral, Daily, First dose on Fri05/12/19 at 0915, Until Discontinued 805 (Given - Provider: Asya Lucio RN) 819 (Given - Provider: Estrella Ford RN) 800 (Given - Provider: Estrella Ford RN) bisacodyl (DULCOLAX) suppository 10 mg 10 mg, Rectal, Once, 1 dose, On Fri05/12/19 at 1345 Diclofenac Sodium (VOLTAREN) 1 % gel 2 g 2 g, Topical, 2 times daily (2 times per day), First dose on Fri05/14/19 at 1215, Until Discontinued, L knee 806 (Given - Provider: Asya Lucio RN)2047 (Given - Provider: Rosalind Snyder RN) 823 (Given - Provider: Estrella Ford RN)2137 (Given - Provider: Rosalind Snyder RN) 800 (Given - Provider: Estrella Ford RN) docusate sodium (COLACE) capsule 100 mg 100 mg, Oral, Daily, First dose on Fri05/13/19 at 0900, Until Discontinued, Swallow whole. Do not crush, open, chew, or split capsule. 08 (Given - Provider: Asya Lucio RN) 819 (Given - Provider: Estrella Ford RN) 799 (Given - Provider: Estrella Ford RN) donepezil (ARICEPT) tablet 10 mg 10 mg, Oral, Nightly, First dose on Fri05/12/19 at 2100, Until Discontinued 2045 (Given - Provider: Rosalind Snyder RN) 2136 (Given - Provider: Rosalind Snyder, KAITLYNN) epoetin ashly-epbx (RETACRIT) 4,000 Units 4,000 Units, Subcutaneous, T-Th-Sat During Dialysis, First dose on Fri05/15/19 at 1100, Until Discontinued, Indication: \\[email or web address]\static\Link Protocols\[facility]-Epoetin- Dosing-Policy.pdf 1729 (Given - Provider: Estrella Ford RN) folic acid (FOLVITE) tablet 1 mg 1 mg, Oral, Daily, First dose on Fri05/13/19 at 0900, Until Discontinued 0807 (Given - Provider: Asya Lucio RN) 0820 (Given - Provider: Estrella Ford RN) 0800 (Given - Provider: Estrella Ford RN) furosemide (LASIX) tablet 80 mg 80 mg, Oral, 2 times daily diuretic, First dose (after last modification) on Fri05/16/19 at 0730, Until Discontinued, Hold for systolic BP less than 100 0805 (Given - Provider: Asya Lucio RN - Comment: Bp 139/64)1816 (Given - Provider: Asya Lucio RN - Comment: Bp 121/66Pulse 73) 0820 (Given - Provider: Estrella Ford, KAITLYNN)1726 (Given - Provider: Estrella Ford, KAITLYNN) 0757 (Given - Provider: Estrella Ford RN - Comment: 137/66) heparin (porcine) injection 1,000 Units 1,000 Units, Intracatheter, 3 times per week in hemodialysis (MWF) (Once per day on Fri), First dose (after last modification) on Fri05/18/19 at 1600, Until Discontinued, Fill volume of venous catheter port 1600 (Canceled Entry - Provider: Automatic Discharge Provider - Comment: Automatically canceled at discontinue of medication order) heparin (porcine) injection 1,000 Units 1,000 Units, Intracatheter, 3 times per week in hemodialysis (MWF) (Once per day on Fri), First dose (after last modification) on Fri05/18/19 at 1600, Until Discontinued, Fill volume of arterial catheter port 1600 (Canceled Entry - Provider: Automatic Discharge Provider - Comment: Automatically canceled at discontinue of medication order) heparin (porcine) injection 2,000 Units 2,000 Units, Intravenous, During Dialysis, Starting on Fri05/18/19 at 1334, Until Fri05/28/19 at 1407, HIGH RISK MEDICATION Heparin 2000units bolus for dialysis heparin (porcine) injection 4,300 Units 4,300 Units, Intravenous, 3 times per week in hemodialysis (MWF) (Once per day on Fri Sat), First dose on Fri05/18/19 at 1000, Until Discontinued, HIGH RISK MEDICATION 4300 units to be given post dialysis. Instill into lumens post dialysis., Per dialysis session, may administer up to (# of dose(s)): 1 2332 (Given - Provider: Mirian Doe RN - Comment: HD at night) insulin lispro (HumaLOG) injection 0-6 Units(Linked Group 1) 0-6 Units, Subcutaneous, 4 times daily before meals and nightly, First dose on Fri05/13/19 at 2200, Until Discontinued, Blood Sugar Very Low Dose <70 Initiate hypoglycemia treatment 70 - 200 No Insulin 201-250 2 units 251-300 3 units 301-350 4 units 351-400 5 units >400 6 units & Call Medical Provider 0736 (Not Given - Provider: Asya Lucio RN - Reason: Order parameters not met)1217 (Not Given - Provider: Asya Lucio RN - Reason: Order parameters not met - Comment: bs 89)1803 (Not Given - Provider: Asya Lucio RN - Reason: Order parameters not met)2137 (Not Given - Provider: Rosalind Snyder RN - Reason: Order parameters not met - Comment: BG is 114) 0744 (Not Given - Provider: Estrella Ford RN - Reason: Order parameters not met - Comment: BG 93)1214 (Not Given - Provider: Estrella Ford RN - Reason: Order parameters not met - Comment: BG 97)1728 (Not Given - Provider: Estrella Ford RN - Reason: Order parameters not met - Comment: BG 116)2157 (Not Given - Provider: Rosalind Snyder RN - Reason: Order parameters not met - Comment: BG 104) 0802 (Not Given - Provider: Estrella Ford RN - Reason: Order parameters not met - Comment: BG 88)1130 (Canceled Entry - Provider: Automatic Discharge Provider - Comment: Automatically canceled at discontinue of medication order) iron sucrose (VENOFER) injection 200 mg 200 mg, Intravenous, During Dialysis, Starting on 05/15/19 at 1040, Until Fri05/28/19 at 1407, If IV push, push slowly over 2 minutes. 2330 (Given - Provider: Mirian Doe RN) lactulose (CHRONULAC) 10 GM/15ML solution 20 g () 20 g, Oral, 2 times daily (2 times per day), 2 doses, First dose on Fri05/26/19 at 1100, Last dose on Fri05/26/19 at 2100 1224 (Not Given - Provider: Asya Lucio RN - Reason: Patient/family refused)2046 (Given - Provider: Rosalind Snyder RN) lidocaine (LIDOCARE) 4 % patch 2 patch 2 patch, Transdermal, Administer over 12 Hours, Daily, First dose on Fri05/14/19 at 1215, Until Discontinued, Apply to L leg. May cut patches if needed. Remove patch after 12 hours. 08 (Medication Applied - Provider: Asya Lucio RN)2050 (Medication Removed - Provider: Rosalind Snyder RN) 818 (Medication Applied - Provider: Estrella Ford, KAITLYNN)2137 (Medication Removed - Provider: Rosalind Snyder RN) 08 (Medication Applied - Provider: Estrella Ford RN)120 (Due: Medication Removed - Provider: Automatic Discharge Provider - Comment: Time automatically adjusted from order being discontinued) MINERIN cream cream Topical, 2 times daily (2 times per day), First dose on Fri05/24/19 at 2100, Until Discontinued, Apply to bilateral feet 08 (Given - Provider: Asya Lucio RN)2047 (Given - Provider: Rosalind Snyder RN) 08 (Given - Provider: Estrella Ford, KAITLYNN)2137 (Given - Provider: Rosalind Snyder RN) 08 (Given - Provider: Estrella Ford RN) rOPINIRole (REQUIP) tablet 0.5 mg 0.5 mg, Oral, T-Th-Sat During Dialysis, First dose on Fri05/27/19 at 1800, Until Discontinued, Give 15 minutes before dialysis. 1810 (Given - Provider: Estrella Ford RN) tamsulosin (FLOMAX) 24 hr capsule 0.4 mg 0.4 mg, Oral, Nightly, First dose on Fri05/12/19 at 2100, Until Discontinued, Swallow whole. Do not crush, open, chew, or split capsule. 2046 (Given - Provider: Rosalind Snyder, RN) 2136 (Given - Provider: Rosalind Snyder, RN) PRN Medication Order 05/26/2019 05/27/2019 05/28/2019 acetaminophen (TYLENOL) tablet 325 mg 325 mg, PO/Per Tube, Every 6 hours PRN, Starting on Fri05/11/19 at 2124, Until Fri05/28/19 at 1407, mild pain, Temp > or equal to 101F (38.3C) dextrose (GLUTOSE) 40 % oral gel 15 g 15 g, Oral, As needed, Starting on Fri05/13/19 at 1724, Until Fri05/28/19 at 1407, blood sugar < 70 mg/dL, If patient is alert and taking food/drink PO or per tube: a. Give patient ONE of the following: i. 4 ounces (1/2 cup) apple juice or non-diet carbonated beverage ii. 15 grams of glucose gel b. Repeat finger stick every 15 minutes and treat as above if blood glucose remains less than 70 mg/dl. c. blood glucose remains less than 70 mg/dl after two treatments or meal time is more than one hour away, give patient ONE of the following. i. 8 ounces (1 cup) of milk ii. One serving of fruit and protein (i.e. juice, cheese, etc.) iii. One serving of bread and protein (i.e. peanut butter and crackers) d. Call physician to notify with patient response prior to administering any further insulin or oral hypoglycemia agents. dextrose 5 % and sodium chloride 0.45 % infusion 50 mL/hr, Intravenous, As needed, Starting on Fri05/13/19 at 1724, Until Fri05/28/19 at 1407, For hypoglycemia, For renal patients D5W at 50mL/hr. dextrose 50 % IV solution 25 g 25 g, Intravenous, at 1,000 mL/hr, Administer over 3 Minutes, As needed, Starting on Fri05/13/19 at 1724, Until Fri05/28/19 at 1407, blood sugar < 70 mg/dL, If patient is not-alert or NPO and has IV access a. Give patient 50 ml of Dextrose 50% IV push over 3 minutes. b. Start IV D5-0.45% saline at 50 ml/hr. c. Call physician to notify with patient response prior to administering any further insulin or oral hypoglycemia agents. glucagon (human recombinant) injection 1 mg 1 mg, Intramuscular, As needed, Starting on Fri05/13/19 at 1724, Until Fri05/28/19 at 1407, blood sugar < 70 mg/dL, if no IV access, If patient is not-alert or NPO and has no IV access a. Give Glucagon 1 mg IM x 1 dose (give immediately do not wait for IV access). b. Place IV and start IV D5-0.45% saline at 50 ml/hr when IV can be started. c. Call physician to notify with patient response to treatment. oxyCODONE-acetaminophen (PERCOCET) 5-325 MG 1 tablet 1 tablet, Oral, Every 6 hours PRN, Starting on Fri05/12/19 at 0905, Until Fri05/28/19 at 1407, moderate pain polyethylene glycol (MIRALAX) packet 17 g 17 g, Oral, Daily PRN, Starting on Fri05/18/19 at 1715, Until Fri05/28/19 at 1407, constipation, Dilute/Mix with 4-8 oz fluid for administration. 0601 (Given - Provider: Rosalind Snyder RN) Linked Groups Order Group 1: insulin lispro (HumaLOG) injection 0-6 UnitsJump to med 0-6 Units, Subcutaneous, 4 times daily before meals and nightly, First dose on Fri05/13/19 at 2200, Until Discontinued, Blood Sugar Very Low Dose <70 Initiate hypoglycemia treatment 70 - 200 No Insulin 201-250 2 units 251-300 3 units 301- 350 4 units 351-400 5 units >400 6 units & Call Medical Provider And POCT glucose (CANCELED) Routine, 4 times daily before meals and at bedtime (POCT), First occurrence on Fri05/13/19 at 2130, Until Specified documented in this encounter
[2024-04-26] VITALS (30 sets, daily range): BP systolic 106–150; BP diastolic 40–85; PULSE 56–718; RESP 18–20; TEMP 36.4–37; O2SAT 96–100
[2024-04-26 00:32] LABS: Glucose Point of Care 160 mg/dl (65-105)
[2024-04-26] MEDS: LEVALBUTEROL NEB 1.25 MG/3 ML INHALATION ×2 (02:02→07:30)
[2024-04-26 06:42] LABS: Glucose Point of Care 191 mg/dl (65-105)
[2024-04-26 07:14] LABS: Basophils Percent Auto 0.5 % (0.2-1.2); Eosinophils Absolute Auto 0.2 K/mm3 (0-0.3); Eosinophils Percent Auto 2.3 % (0-4.4); Hematocrit 25.4 % (42.0-52.0); Hemoglobin 7.8 g/dL (14.0-18.0); Immature Granulocyte Percent A 2.4 % (0-0.5); Lymphocytes Absolute Auto 0.88 K/mm3 (0.9-3.2); Lymphocytes Percent Auto 10.6 % (18.3-44.2); Mean Corpuscular HGB Conc 30.7 g/dl (32-36); Mean Corpuscular Hemoglobin 29.7 pg (26-34); Mean Corpuscular Volume 96.6 fl (80-100); Mean Platelet Volume 10.8 fl (7.4-10.4); Monocytes Absolute Auto 0.5 K/mm3 (0.1-0.6); Monocytes Percent Auto 5.6 % (2.6-8.5); Neutrophils Absolute Auto 6.5 K/mm3 (1.3-6.7); Neutrophils Percent Auto 78.6 % (45.5-73.1); Nucleated Red Blood Cells Perc 0.5 % (0.0-0.2); Platelet Count Result 256 k/mm3 (150-375); Red Blood Count 2.63 M/mm3 (4.6-6.20); Red Cell Distribution Width 16.4 % (11.5-14.5); White Blood Count 8.3 K/mm3 (4.5-10.0)
[2024-04-26 07:34] LABS: Alanine Aminotransferase 52 U/L (6-50); Albumin Level 3.2 g/dL (3.5-5.1); Alkaline Phosphatase 152 U/L (38-126); Anion Gap 4 mmol/L (4-12); Aspartate Amino Transferase 50 U/L (17-59); Bilirubin,Total 0.6 mg/dL (0.2-1.3); Blood Urea Nitrogen 74 mg/dL (9-20); Carbon Dioxide 34 mmol/L (22-30); Chloride 97 mmol/L (98-107); Estimated CRCL calculation 10 ml/min; Estimated Glomerular Filt Rate 19; Glucose 182 mg/dL (65-110); Magnesium 2.2 mg/dL (1.6-2.3); Potassium 4.6 mmol/L (3.4-5.0); Sodium 135 mmol/L (137-145)
--- NOTE | 2024-04-26 10:25 | P.PNNP_ITS ---
Progress Note: A&P Assessment and Plan (1) End stage renal disease: Code(s): N18.6 - End stage renal disease Status: Chronic Assessment and Plan: * HD today * continue Fri//Fri outpatient dialysis schedule this week (due to holiday schedule) * follow electrolytes, volume status, and clearance (2) Aspiration pneumonia: Qualifiers: Aspiration pneumonia type: unspecified Laterality: bilateral Lung location: lower lobe of lung Qualified Code(s): J69.0 - Pneumonitis due to inhalation of food and vomit Code(s): J69.0 - Pneumonitis due to inhalation of food and vomit Status: Acute Assessment and Plan: * as noted by admission imaging: * CXR with patchy bilateral lower lobe infiltrates, left greater than right, suggesting bilateral pneumonia versus aspiration pneumonitis * presumably secondary to aspiration from G-tube feedings * on antibiotics * culture negative to ate * suctioning as needed * currently on slower rate tube feeding (3) Atrial fibrillation with RVR: Code(s): I48.91 - Unspecified atrial fibrillation Status: Acute Assessment and Plan: * noted on admission * on amiodarone, diltiazem and metoprolol (rate control) * on anticoagulation (4) Hypertension: Code(s): I10 - Essential (primary) hypertension Status: Chronic Assessment and Plan: * reasonable control at this time * follow trend of hemodynamics (5) Anemia: Code(s): D64.9 - Anemia, unspecified Status: Chronic Assessment and Plan: * due to ESRD and acute illness * Retacrit with HD * follow trend of H/H (6) Sacral wound: Code(s): S31.000A - Unspecified open wound of lower back and pelvis without penetration into retroperitoneum, initial encounter Status: Acute Assessment and Plan: * as noted on admission * wound care nurse following with recommendations noted * on antibiotics already (7) Dementia: Code(s): F03.90 - Unspecified dementia, unspecified severity, without behavioral disturbance, psychotic disturbance, mood disturbance, and anxiety Status: Chronic Assessment and Plan: * on no mediations for this * appears stable Will continue to follow. Subjective Date/time seen: 04/26/24 10:25 Interval history: Follow-up for end stage renal disease on hemodialysis. Chart reviewed -- assuming care from Dr. Fuentes; tolerating dialysis treatment at the time of my visit (seen on HD at 10:15AM); mentation seems at baseline - awake and in no apparent distress but not conversive or interactive. Exam 2 Narrative: General: elderly male in NAD Heart: normal S1 and S2; no rub Lungs: clear anteriorly Abdomen: soft, nontender, nondistended, positive bowel sounds Extremities: no cyanosis or clubbing; no edema Skin: warm and dry Objective Data Vital Signs Vital Signs: Vital Signs Temp Pulse Resp BP Pulse Ox O2 Del Method FiO2 04/26/24 10:15 98 123/48 L 04/26/24 10:00 98 117/53 L 04/26/24 09:56 92 128/47 L 04/26/24 09:52 Room Air 04/26/24 09:45 98.4 F 81 19 133/52 L 04/26/24 08:00 102 H 04/26/24 07:39 103 H 20 04/26/24 07:30 100 20 04/26/24 07:30 97 Room Air 04/26/24 06:00 97.5 F L 102 H 20 142/71 H 100 04/26/24 04:00 98 04/26/24 02:02 85 20 04/26/24 00:00 91 04/25/24 22:18 98.0 F 76 20 137/43 L 99 04/25/24 22:09 86 20 04/25/24 22:01 100 Room Air 04/25/24 21:58 80 20 04/25/24 20:00 94 04/25/24 20:00 Room Air 04/25/24 16:39 112 H 04/25/24 16:00 100 04/25/24 14:13 112 H 24 H 04/25/24 14:06 102 H 24 H 04/25/24 14:06 94 Room Air 04/25/24 14:00 99.1 F 99 20 121/59 L 96 Intake/Output Intake/Output: Intake & Output 04/23/24 04/24/24 04/25/24 04/26/24 23:59 23:59 23:59 23:59 Intake Total 1338 1051 640 Output Total 0 2012 0 Balance 1338 -961 640 0 Meds/Results Medications: Active Medications Generic Name Dose Route Start Last Admin Trade Name Freq PRN Reason Stop Dose Admin Acetaminophen 650 mg 04/19/24 08:46 04/24/24 15:57 Acetaminophen 650 Mg Suppository RECTAL 650 mg Q6H PRN Administration Mild Pain (1-3) or Fever Allopurinol 100 mg/ 400 mg 04/19/24 21:00 04/25/24 20:44 Allopurinol 300 mg PO 400 mg HS LOKESH Administration Amiodarone HCl 200 mg 04/25/24 17:00 04/25/24 16:39 Amiodarone Hcl 200 Mg Tablet PO 200 mg BID LOKESH Administration Apixaban 5 mg 04/25/24 21:00 04/25/24 20:43 Apixaban 5 Mg Tablet PO 5 mg Q12HR LOKESH Administration Atorvastatin Calcium 20 mg 04/19/24 21:00 04/25/24 20:44 Atorvastatin 20 Mg Tablet FEED TUBE 20 mg HS LOKESH Administration Dextrose 12.5 gm 04/19/24 14:29 Dextrose 50% 25 Gm/50 Ml Syringe IV PUSH PRN PRN Hypoglycemia Protocol Diltiazem HCl 60 mg 04/25/24 17:00 04/25/24 16:39 Diltiazem Hcl 60 Mg Tablet PO 60 mg BID LOKESH Administration Doxazosin Mesylate 1 mg 04/20/24 09:00 04/25/24 09:00 Doxazosin Mesylate 1 Mg Tablet FEED TUBE 1 mg DAILY LOKESH Administration Epoetin Bacilio-epbx 20,000 units 04/26/24 19:00 Epoetin Bacilio-Epbx 20,000 Units/Ml Vial SUB-Q 04/26/24 19:01 ONCE ONE Folic Acid 1 mg 04/20/24 09:00 04/25/24 09:00 Folic Acid 1 Mg Tablet FEED TUBE 1 mg DAILY LOKESH Administration Furosemide 80 mg 04/19/24 17:00 04/25/24 16:39 Furosemide 80 Mg Tablet FEED TUBE 80 mg BID LOKESH Administration Glucagon 1 mg 04/19/24 14:29 Glucagon For Inj 1 Mg Vial IM PRN PRN Hypoglycemia Protocol Glucose 15 gm 04/19/24 14:29 Glucose Oral Gel 15 Gm Of Glucse In 37.5 Gm Tube PO PRN PRN Hypoglycemia Protocol Hydralazine HCl 10 mg 04/19/24 14:20 Hydralazine Hcl 20 Mg/Ml Vial IV PUSH Q8H PRN Blood Pressure - High Meropenem 500 mg in 100 mls @ 200 mls/hr 04/19/24 16:00 04/25/24 17:08 IVPB Infused Q24H LOKESH Infusion Dextrose 1,000 mls @ 100 mls/hr 04/19/24 14:29 Dextrose 5% 1,000 Ml IVPB PRN PRN Hypoglycemia Protocol Albumin Human 50 mls @ 999 mls/hr 04/25/24 14:19 Albutein IVPB 05/25/24 14:18 Q10M PRN HYPOTENSION Insulin Aspart 2 - 5 units 04/20/24 12:00 04/26/24 12:42 Insulin Aspart (*Bkc) 100 Units/Ml SUB-Q Not Given Q6HR LOKESH Protocol Lansoprazole 30 mg 04/19/24 21:00 04/25/24 20:44 Lansoprazole Odt 30 Mg Tab.Rap.Dr FEED TUBE 30 mg Q12HR LOKESH Administration Levalbuterol HCl 1.25 mg 04/24/24 14:00 04/26/24 07:30 Levalbuterol Neb 1.25 Mg/3 Ml INHALATION 1.25 mg Q6HRT LOKESH Administration Levetiracetam 500 mg 04/19/24 21:00 04/25/24 20:44 Levetiracetam Oral Caitlyn 500 Mg/5 Ml Udc FEED TUBE 500 mg Q12HR LOKESH Administration Metoprolol Tartrate 25 mg 04/23/24 10:45 04/25/24 20:44 Metoprolol Tartrate 25 Mg Tablet FEED TUBE 25 mg Q12HR LOKESH Administration Ondansetron HCl 4 mg 04/19/24 08:40 Ondansetron Inj 4 Mg/2 Ml Vial IV PUSH Q6H PRN Nausea And Vomiting Pantoprazole Sodium 40 mg 04/19/24 09:25 04/25/24 09:00 Pantoprazole Sodium Iv 40 Mg Vial IV PUSH 40 mg QAM LOKESH Administration Perflutren Lipid Microsphere 0 ml 04/24/24 08:32 Perflutren Lipid Microspheres 1.5 Ml Vial Diluted To 10 Ml Total Volume IV PUSH 04/27/24 08:32 ONCE PRN adequate visualization Protocol Polyethylene Glycol 17 gm 04/19/24 14:20 Polyethylene Glycol 3350 17 Gm Powd.Pack PO QAM PRN Constipation Ropinirole HCl 0.5 mg 04/20/24 09:00 04/24/24 13:46 Ropinirole Hcl 0.5 Mg Tablet FEED TUBE 0.5 mg TuThSa@0900 LOKESH Administration Vancomycin HCl 1 each 04/19/24 17:35 Vancomycin For Hemodialysis IVPB PRN PRN Vancomycin Protocol Radiology Results: ITS Impressions Head CT 04/18/24 14:30 IMPRESSION: Cerebral atherosclerosis and chronic small vessel ischemic changes of the cerebral white matter 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 Labs Labs: Laboratory Tests 04/26/24 07:09 04/26/24 07:09 Calcium 9.0 Magnesium 2.2 Total Bilirubin 0.6 AST 50 ALT 52 H Alkaline Phosphatase 152 H Total Protein 7.0 Albumin 3.2 L Microbiology 04/20/24 16:54 Blood Blood Culture - Final 04/20/24 14:50 Blood Blood Culture - Final
[2024-04-26 12:22] LABS: Glucose Point of Care 120 mg/dl (65-105)
[2024-04-26] MEDS: EPOETIN ALFA-EPBX 20,000 UNITS/ML VIAL 20000 UNITS SUB-Q (13:50)
[2024-04-26] MEDS: PANTOPRAZOLE SODIUM IV 40 MG VIAL IV PUSH (15:13)
[2024-04-26] MEDS: APIXABAN 5 MG TABLET PO (15:13)
[2024-04-26] MEDS: levETIRAcetam ORAL SOL 500 MG/5 ML UDC FEED TUBE (15:13)
--- NOTE | 2024-04-26 15:13 | P.DS_ITS ---
DS: Admitting Diagnosis Discharge Date 04/26/24 Admitting Diagnosis Aspiration Pneumonia Sepsis DS: Discharge Diagnosis Discharge Diagnosis (1) Sepsis: Code(s): A41.9 - Sepsis, unspecified organism Status: Acute Assessment and Plan: Sepsis without septic shock likely secondary to pneumonia vs less likely wound infection. * On admission pt with Tachycardia, leukocytosis, tachypnea, pneumonia on CXR, UA with possible UTI, possible wounds infections. * Initial blood cultures growing Staph Hominis, repeat blood culture NGTD. * Currently on Azithromycin, meropenem and Vancomycin for aspiration PNA; * Azithromycin discontinued. * All antibiotics therapy discontinue prior to discharge with completion of 7 days treatment. * MRSA Positive and treated with 7 days Vancomycin. * Urine culture negative. * Chest x-ray with infiltrates and possible pneumonitis aspiration. * Repeat CXR; Bibasilar pneumonia. (2) Aspiration pneumonia: Qualifiers: Aspiration pneumonia type: unspecified Laterality: bilateral Lung location: lower lobe of lung Qualified Code(s): J69.0 - Pneumonitis due to inhalation of food and vomit Code(s): J69.0 - Pneumonitis due to inhalation of food and vomit Status: Acute Assessment and Plan: Patient with chronic multi lobular lower lobe pneumonitis likely secondary to aspiration from G-tube CXR: Patchy bilateral lower lobe infiltrates, left greater than right, suggesting bilateral pneumonia versus aspiration pneumonitis * Mgt as above. * Continue on meropenem IV, azithromycin. * MRSA positive * Hx of dysphagia and with G-tube * Tube feedings continuing at slower rate. * TF rate decreased with worsening renal function per nephro recommendations. * Continue suctioning as needed. * Continue to follow blood cultures, NGTD. (3) End-stage renal disease on hemodialysis: Code(s): N18.6 - End stage renal disease; Z99.2 - Dependence on renal dialysis Status: Acute Assessment and Plan: * nephrology followed and managed hemo dialysis * TF rate decreased with worsening renal function per watch dial stoner recommendations. * Continue sevelamer carbonate * Avoid nephrotoxic drugs. * Monitor electrolytes and correct as needed. * Meds dosing per renal function. * Stable prior to discharge. (4) Atrial fibrillation with RVR: Code(s): I48.91 - Unspecified atrial fibrillation Status: Acute Assessment and Plan: Hx of AFib and was in AFib RVR on admission. * Episodes of tachycardia improved with start on Amiodarone. * Started on Amiodarone per cardiology. * Diltiazem dose decreased per Cardiology. * Discontinued Metoprolol prior to discharge. * Continue apixaban (5) Hypertension: Code(s): I10 - Essential (primary) hypertension Status: Chronic Assessment and Plan: * BP better controlled prior to discharge. (6) Dementia: Code(s): F03.90 - Unspecified dementia, unspecified severity, without behavioral disturbance, psychotic disturbance, mood disturbance, and anxiety Status: Chronic Assessment and Plan: Stable inpatient. (7) Dysphagia: Code(s): R13.10 - Dysphagia, unspecified Status: Acute Assessment and Plan: * Continued on TF and rate slightly decreased to 45ml/hr prior to discharge. * Seen by dietitian during hospitalization. (8) UTI (urinary tract infection): Code(s): N39.0 - Urinary tract infection, site not specified Status: Acute Assessment and Plan: patient's urine was nitrate and leukocytosis positive history of indwelling catheter for retention however was straight cathed in the ER * Urine culture negative. * No treatment required. (9) Anemia: Code(s): D64.9 - Anemia, unspecified Status: Chronic Assessment and Plan: - Possibly related to ESRD vs/+ acute blood loss from wound vs other bleeding. * hemoglobin improved post 1 unit PRBC's transfusion and stable prior to discharge. * Epogen given per nephrology. * No bleeding signs noted with Eliquis resumption. (10) Sacral wound: Code(s): S31.000A - Unspecified open wound of lower back and pelvis without penetration into retroperitoneum, initial encounter Status: Acute Assessment and Plan: Patient with multiple pressure open areas on buttocks and unstageable sacral wound. * Seen by wound nurse. * Q 2 Turns * Mepilex on sacrum. * continue IV vancomycin for now. Plan Discharge back to SNF DS: Summary Hospital Course Reason for hospitalization: Aspiration Pneumonia Hospital Course: Patient was brought in to the ER with reports of altered mentation. Patient was noted to be in sepsis possibly related to aspiration pneumonia vs sacral wound infection. He has been treated with IV antibiotics and completed treatment prior to discharge. He was suspected of having a UTI but his urine culture was negative. His initial blood culture grew staph hominis that was sensitive to Vancomycin and was covered by the abx he was being treated with empirically. Patient has ESRD and his hemodialysis was managed by the watch dial stoner. Prior to discharge, patient had no fevers and leukocytosis was resolved prior to discharge. Patient had an episode of A-Fib RVR and was seen by Insurance Account Manager who added Amiodarone to his medications and adjusted Cardizem dose. His A-Fib was controlled prior to discharge. Patient is medically stable for discharge with no acute distress noted or reported prior to discharge. Status at Discharge Functional status at discharge: bed bound Overall status at discharge: patient is progressing back to baseline Time Spent with Patient Time attestation: Total time spent providing and/or coordinating discharge services: Time spent: Greater than 30 minutes Exam Narrative: * GENERAL: Alert but non-verbal. No acute distress. * EYES: EOMI. No scleral icterus. PERRLA. * HEENT: Dry mucous membranes. * LUNGS: Coarse and slightly congested. No accessory muscle use. * CARDIOVASCULAR: irregularly irregular . No murmurs. * ABDOMEN: Soft, non tender, and non-distended. G-tube intact upper abdomen. * EXTREMITIES: No edema. Bilateral lower extremity contracture. * SKIN: No rashes or lesions. Skin warm and dry. * NEUROLOGIC: Non-verbal. Jacek LE contracture. * PSYCHIATRIC:Unable to assess due to non-verbal status. DS: Data Data Completed and Pending Labs on day of discharge: Labs from last 24 hours 04/26/24 04/26/24 04/26/24 12:19 07:09 06:38 WBC 8.3 RBC 2.63 L Hgb 7.8 L Hct 25.4 L MCV 96.6 MCH 29.7 MCHC 30.7 L RDW 16.4 H Plt Count 256 MPV 10.8 H Immature Gran % (Auto) 2.4 H Neut % (Auto) 78.6 H Lymph % (Auto) 10.6 L Dale % (Auto) 5.6 Eos % (Auto) 2.3 Baso % (Auto) 0.5 Lymph # (Auto) 0.88 L Dale # (Auto) 0.5 Eos # (Auto) 0.2 Baso # (Auto) 0.0 Abs Immat Gran (auto) 0.20 H Absolute Neuts (auto) 6.5 Absolute Nucleated RBC 0.040 H Nucleated RBC % 0.5 H Sodium 135 L Potassium 4.6 Chloride 97 L Carbon Dioxide 34 H Anion Gap 4 BUN 74 H D Creatinine 3.80 H Estim Creat Clear Calc 10 Estimated GFR 19 L Glucose 182 H POC Capillary Glucose 120 H 191 H Calcium 9.0 Magnesium 2.2 Total Bilirubin 0.6 AST 50 ALT 52 H Alkaline Phosphatase 152 H Total Protein 7.0 Albumin 3.2 L 04/26/24 04/25/24 00:26 18:17 WBC RBC Hgb Hct MCV MCH MCHC RDW Plt Count MPV Immature Gran % (Auto) Neut % (Auto) Lymph % (Auto) Dale % (Auto) Eos % (Auto) Baso % (Auto) Lymph # (Auto) Dale # (Auto) Eos # (Auto) Baso # (Auto) Abs Immat Gran (auto) Absolute Neuts (auto) Absolute Nucleated RBC Nucleated RBC % Sodium Potassium Chloride Carbon Dioxide Anion Gap BUN Creatinine Estim Creat Clear Calc Estimated GFR Glucose POC Capillary Glucose 160 H 165 H Calcium Magnesium Total Bilirubin AST ALT Alkaline Phosphatase Total Protein Albumin Discharge Plan Discharge Attending physician on discharge: Livan Becerra Consulting providers: Aba Fuentes; Debby Justin Discharging Clinician: Narinder Schuster Anticipated Discharge Date/Time: 04/26/24 15:17 Patient Disposition: SNF Activity: as tolerated Diet: tube feeding Patient Language: Greek Stand Alone Forms: General Discharge Information Follow-up/Referrals: Yusuf,MD Jesse [Primary Care Provider] - 1 Week Discharge Medications: New amiodarone [Pacerone] 200 mg Tablet 200 mg PO BID Qty: 40 0RF Rx Instructions: 200 mg BID for 5 days then decrease to 200 mg Daily diltiazem HCl 60 mg Tablet 60 mg PO BID Qty: 30 0RF Eliquis 5 mg Tablet 5 mg PO Q12HR Qty: 30 0RF Continued atorvastatin 20 mg tablet 20 mg feeding tube HS ropinirole 0.5 mg tablet 0.5 mg feeding tube [id number] Rx Instructions: takes on dialysis days/Friday/?Friday furosemide 80 mg tablet 80 mg feeding tube BID folic acid 1 mg tablet 1 mg feeding tube DAILY allopurinol 100 mg tablet 400 mg PO HS polyethylene glycol 3350 [Miralax] 17 gram powder in packet 17 g PO QAM PRN (Reason: Constipation) levetiracetam 100 mg/mL solution 500 mg feeding tube BID pantoprazole [address] for susp in packet 40 mg G-tube Q12H doxazosin 2 mg tablet 1 mg feeding tube DAILY Discontinued diltiazem HCl 30 mg tablet 30 mg feeding tube TID Date of admission: 04/19/24 07:52 Primary Care Provider: YusufJesse Admitting Provider: Micheal Bashir Attending physician on admission: Neli Joseph Condition: Serious Quality VTE Prophylaxis VTE prophylaxis: pharmacologic ordered Hospitalist MIPS Heart Failure (Exclusion) Patient has history of Heart Transplant or Left Ventricular Assistive Device?: No IF YES, STOP HERE Heart Failure (Qualifier) Patient has current or prior documentation of LVEF less than or equal to 40%, or mod/servere depressed LVSF?: No IF NO, STOP HERE
[2024-04-26] MEDS: FOLIC ACID 1 MG TABLET FEED TUBE (15:14)
[2024-04-26] MEDS: LANSOPRAZOLE ODT 30 MG TAB.RAP.DR FEED TUBE (15:14)
[2024-04-26] MEDS: DOXAZOSIN MESYLATE 1 MG TABLET FEED TUBE (15:14)
[2024-04-26] MEDS: METOPROLOL TARTRATE 25 MG TABLET FEED TUBE (15:14)
[2024-04-26] MEDS: MEROPENEM 500 MG/NS 100 ML 500 MG/100 ML BAG 200 MG IVPB (15:15)
[2024-04-26] MEDS: FUROSEMIDE 80 MG TABLET FEED TUBE (17:50)
[2024-04-26] MEDS: AMIODARONE HCL 200 MG TABLET PO (17:50)
[2024-04-26] MEDS: dilTIAZem HCL 60 MG TABLET PO (17:50)
== END 2024-04-26 20:49 | DRG 871 ==
LOC: ANHED 16:42 → ANHIMU 20:50 → ANH3MED 04-19 18:08
PROVIDERS: Internal Medicine Nephrology; Nurse Practitioner Family; Nurse Practitioner Gerontology; Admitting Provider General Practice; Emergency Provider Physician Assistant; PCP Internal Medicine; Visit Provider Nurse Practitioner Adult Health
DX: A41.1 Sepsis due to other specified staphylococcus (principal); J18.9 Pneumonia, unspecified organism; J69.0 Pneumonitis due to inhalation of food and vomit; N18.6 End stage renal disease; N39.0 Urinary tract infection, site not specified; E46 Unspecified protein-calorie malnutrition; I12.0 Hypertensive chronic kidney disease with stage 5 chronic kidney disease or end stage renal disease; I67.850 Cerebral autosomal dominant arteriopathy with subcortical infarcts and leukoencephalopathy; Z68.1 Body mass index [BMI] 19.9 or less, adult; I69.391 Dysphagia following cerebral infarction; Z93.1 Gastrostomy status; R13.10 Dysphagia, unspecified; Z99.2 Dependence on renal dialysis; B95.62 Methicillin resistant Staphylococcus aureus infection as the cause of diseases classified elsewhere; D63.1 Anemia in chronic kidney disease; F02.80 Dementia in other diseases classified elsewhere, unspecified severity, without behavioral disturbance, psychotic disturbance, mood disturbance, and anxiety; G30.9 Alzheimer's disease, unspecified; I48.91 Unspecified atrial fibrillation; L89.159 Pressure ulcer of sacral region, unspecified stage; M19.90 Unspecified osteoarthritis, unspecified site; Z74.01 Bed confinement status; Z96.642 Presence of left artificial hip joint; Z20.822 Contact with and (suspected) exposure to COVID-19; Z79.01 Long term (current) use of anticoagulants
CPT/HCPCS: 36415; 36430; 36600; 70450; 71045; 80053; 80074; 80202; 81001; 82274; 82375; 82728; 82805; 82948; 83050; 83540; 83550; 83605; 83735; 84100; 85014; 85018; 85025; 85055; 85610; 85730; 86140; 86850; 86860; 86870; 86880; 86900; 86901; 86902; 86922; 87040; 87086; 87181; 87637; 87641; 93005; 93306; 94640; 99285; A9270; G0257; G0378; J0456; J1644; J1815; J1953; J2185; J2470; J3370; J7030; J7040; J7050; P9016; P9047; Q5105